=== PATIENT | female | born 1940 | race Caucasian/White ===

== ENCOUNTER 2017-07-26 12:00 | Outpatient (RCR) | payer OTHER, MEDICARE, SELFPAY ==
--- NOTE | 2017-07-01 14:53 | HP.PTEVAL_ITS ---
Patient's Visit Information ANAYA WILSON is a 77 year old F referred to Physical Therapy by Ino Purdy with a diagnosis of Right TKR. Date of Evaluation: 07/01/17 Physical Therapist: Alma Nation - Visit Plan Frequency: 2-3x /Week Duration: 3 Weeks Plan: Focus on ROM and functional mobility - Subjective Subjective: Right Total Knee Replacement June 03, [address] Purdy. Stayed in the hospital a few days- home to a single story home with help as needed. 2 stairs to get in/out of the house- no HR but no issues. Has had home health that stopped last week- does have a home exercise program. Fully I before sugery but had pain. Come here to work out- 5x a week for water classes and land exercises. Is still taking the pain medication- as needed- before streching at home takes the medication. worst: 10/11 Agg: stretching Eases: ice and elevation Best: 03/13. Pain is in the knee itself without radiating. Describes as it hurts. No N/T in the toes. Sleep: not disturbed-in bed- no pillow. Goes back to Dr. Whittaker on - no x-rays. Does use the cane going up/down the stairs but is mostly using the walker. Is not currently driving. PMHx: HTN, bilateral carpal tunnel Meds: lysinopril, prothezene, hydrocodone. - Objective Posture: FH, RS, Increased kyphosis. Gait: uses fww into clinic but does not need to use it- walked out without it. decreased heel/toe pattern. Stairs: asc /desc 8 non recip with 1 HR. HR/TR: wnl. SLS: 10 sec without LOB. Palpation : not tender. Observation: healing well- no s/s of infection. ROM:10-80 degrees. Strength: ankle: 5/5, Knee: 4+/5 within available range, Hip: 4/5 throughout - Goals Goal 1:: Patient will be I with HEP and progression Goal Time Frame: 4-6 Weeks Goal 2:: Patient will demo 0-115 degrees of ROM Goal Time Frame: 4-6 Weeks Goal 3:: Patient will ambulate >300 feet with a normalized gait pattern Goal Time Frame: 4-6 Weeks Goal 4:: Patient will asc/desc 8 stairs recip with 1 HR and good technique Goal Time Frame: 4-6 Weeks - Rehabilitation Potential Physical Therapy Diagnosis: Patient presents with hypomobility- she has decreased ROM, strength and muscular endurance leading to abnormal gait and decreased ability to perform ADL's. Rehabilitation Potential: Fair - Anticipated Interventions Patient/Client Instruction: Educate patient on: Benefits of Fitness Program For the Purpose of:: To improve ability to perform ADL's Therapeutic Exercise to Include: Strength training, Endurance training, Balance training, Coordination, Agility training, Body mechanics, Postural training, Flexibilty training, Gait and locomotor training, Passive ROM, Active ROM For the Purpose of:: To improve muscle performance and motor function TENS: Yes Cryotherapy (ice pack, ice massage): Yes Thermo therapy (hot pack): Yes Ultrasound (thermal/non thermal): No Vasopneumatic device: Yes For the Purpose of:: To decrease pain Thank you for the opportunity to evaluate your patient. For Medicare and Medicare HMO plans, please review the plan of care and approve it. It will need to be FAXED BACK to us at [phone] for Medicare purposes. Please let me know if there are questions or concerns regarding this plan of care. Physician Signature: Date:
--- NOTE | 2017-07-26 12:24 | HP.PTREVAL_ITS ---
Ino Purdy, It has been my pleasure to treat ANAYA WILSON over the last 10 visits for Right TKR. Please see the progress note below for an update on the physical therapy plan of care! Subjective: Patient reports that she can't sleep very well. Still painful with stretching. She is back to some of her normal activities. Feels that she back to 85 % of her normal activities. Is very nervous to return to all of her activities. Objective/Function: Posture: good throughout tx. Gait: no AD- slightly antalgic with decreased stance on right LE-poor heel strike/toe off pattern Stairs: asc/desc 8 recip with 1 HR. HR/TR: wnl. SLS: 10 sec without LOB. Palpation: not tender. Observation: healing well- no s/s of infection. ROM:0- 100 degrees. Strength: ankle: 5/5, Knee: 4+/5 within available range, Hip: 4+/ 5 throughout Plan Plan: Hold will attempt HEP for 2 weeks Goals Goal 1:: Patient will be I with HEP and progression Goal Time Frame: 4-6 Weeks Goal Progress: Goal Met Goal 2:: Patient will demo 0-115 degrees of ROM Goal Time Frame: 4-6 Weeks Goal Progress: Progressing Goal 3:: Patient will ambulate >300 feet with a normalized gait pattern Goal Time Frame: 4-6 Weeks Goal Progress: Progressing Goal 4:: Patient will asc/desc 8 stairs recip with 1 HR and good technique Goal Time Frame: 4-6 Weeks Goal Progress: Progressing Anticipated Interventions Patient/Client Instruction: Educate patient on: Benefits of Fitness Program For the Purpose of:: To improve ability to perform ADL's Therapeutic Exercise to Include: Strength training, Endurance training, Balance training, Coordination, Agility training, Body mechanics, Postural training, Flexibilty training, Gait and locomotor training, Passive ROM, Active ROM For the Purpose of:: To improve muscle performance and motor function TENS: Yes Cryotherapy (ice pack, ice massage): Yes Thermo therapy (hot pack): Yes Ultrasound (thermal/non thermal): No Vasopneumatic device: Yes For the Purpose of:: To decrease pain Please do not hesitate to contact me at [phone] by phone or Fax: if you have questions or concerns regarding this new plan of care! Sincerely, Alma Nation
--- NOTE | 2017-08-21 10:43 | HP.PT.NRP ---
HP - Discharge Summary (1) - Patient Information ANAYA WILSON was seen in my office for initial evaluation on 07/01/17. The following Plan of Care was established for this patient: Initial Frequency: 2-3x /Week Initial Duration: 3 Weeks - Anticipated Interventions Patient/Client Instruction: Educate patient on: Benefits of Fitness Program For the Purpose of:: To improve ability to perform ADL's Therapeutic Exercise to Include: Strength training, Endurance training, Balance training, Coordination, Agility training, Body mechanics, Postural training, Flexibilty training, Gait and locomotor training, Passive ROM, Active ROM For the Purpose of:: To improve muscle performance and motor function TENS: Yes Cryotherapy (ice pack, ice massage): Yes Thermo therapy (hot pack): Yes Ultrasound (thermal/non thermal): No Vasopneumatic device: Yes For the Purpose of:: To decrease pain This patient was last seen in our office . Pertinent comments regarding their Physical therapy will appear below: Patient has not attended physical therapy in over 30 days and is appropriate to be d/c at this time and return to MD as needed. At this point I will be discontinuing this patient from physical therapy. I would be happy to see this patient again in the future if found appropriate by the physician. Thank you! Alma Nation
== END 2017-07-26 19:00 | disposition home or self-care (01) ==
LOC: PT 12:00
PROVIDERS: Family Provider Student in an Organized Health Care Education/Training Program; PCP Student in an Organized Health Care Education/Training Program; Visit Provider Orthopaedic Surgery
DX: M17.11 Unilateral primary osteoarthritis, right knee (principal)
CPT/HCPCS: 97110; 97161; 97530

== ENCOUNTER → 2017-11-14 12:25 | Outpatient (CLI) | payer OTHER, MEDICARE, SELFPAY ==
[2017-11-14 14:34] LABS: Absolute Lymphocyte Count 1.78 X10^3/ul (0.83-4.51); Absolute Neutrophil Count 3.1 X10^3/uL (2.0-7.7); Basophil# 0.01 X10^3/uL; Basophil% 0.2 % (0-1); Eosinophil# 0.12 X10^3/uL; Eosinophils% 2.2 % (0-5); Hematocrit 39.8 % (37-47); Hemoglobin 12.6 g/dl (12.0-15.0); Lymphocyte # 1.78 X10^3/ul (4.0); Lymphocyte % 32.4 % (19-41); Mean Corp Hgb Conc 31.7 g/gl (32-36); Mean Corpuscular Hgb 29.6 pg (27.0-32.0); Mean Corpuscular Volume 93.6 fL (81-99); Mean Platelet Vol. 11.1 fl (6.2-12.0); Monocyte# 0.49 X10^3/uL; Monocyte% 8.9 % (0-10); Neutrophil # 3.08 X10^3/uL (2.7-7.7); Neutrophil % 55.9 % (47-70); Platelet Count 191 K/mm3 (150-450); RBC Distribution Width CV 13.9 % (11.6-14.6); RBC Distribution Width SD 47.8 fl (35.1-43.9); Red Blood Count 4.25 M/mm3 (4.2-5.4); White Blood Count 5.5 K/mm3 (4.4-11.0)
[2017-11-14 14:38] LABS: POSITIVE COUNT NO; POSITIVE DIFFERENTIAL NO; POSITIVE MORPHOLOGY NO
[2017-11-14 14:43] LABS: ALB/GLOB Ratio 1.1 RATIO (0.9-2.4); AST(SGOT) 33 U/L (15-37); Alanine Aminotransfer ALT/SGPT 35 U/L (13-56); Albumin, Serum 3.5 g/dL (3.2-5.0); Alkaline Phosphatase 86 U/L (45-117); Anion Gap 7 (5-15); BUN 23 mg/dL (7-18); BUN/Creat Ratio 35.2 RATIO (10-20); Calcium,Total 8.8 mg/dL (8.5-10.1); Chloride 104 mmol/L (98-107); Creatinine, Serum 0.65 mg/dL (0.55-1.02); EST Glomerular Filtration Rate 93 mL/min (>60); Est Glom Filt Rate - Afr Amer 113 mL/min (>60); Globulin 3.2 g/dL (2.2-4.2); Glucose 79 mg/dL (74-106); Potassium 4.6 mmol/L (3.5-5.1); Protein, Total 6.7 g/dL (6.4-8.2); Sodium Level 141 mmol/L (136-145)
== END ==
PROVIDERS: Family Provider Student in an Organized Health Care Education/Training Program; PCP Student in an Organized Health Care Education/Training Program; Visit Provider Internal Medicine Rheumatology
DX: L40.59 Other psoriatic arthropathy (principal); Z79.899 Other long term (current) drug therapy; L40.8 Other psoriasis; H20.012 Primary iridocyclitis, left eye; F41.9 Anxiety disorder, unspecified
CPT/HCPCS: 36415; 80053; 85025

== ENCOUNTER → 2018-01-30 15:27 | Outpatient (CLI) | payer OTHER, MEDICARE, SELFPAY ==
[2016-09-07 17:39] VITALS: BMI 21.5
[2018-01-30 17:36] LABS: Absolute Lymphocyte Count 1.97 X10^3/ul (0.83-4.51); Absolute Neutrophil Count 3.1 X10^3/uL (2.0-7.7); Basophil# 0.02 X10^3/uL; Basophil% 0.3 % (0-1); Eosinophil# 0.13 X10^3/uL; Eosinophils% 2.2 % (0-5); Hematocrit 39.9 % (37-47); Lymphocyte # 1.97 X10^3/ul (4.0); Lymphocyte % 33.3 % (19-41); Mean Corp Hgb Conc 32.6 g/gl (32-36); Monocyte# 0.72 X10^3/uL; Monocyte% 12.2 % (0-10); Neutrophil # 3.06 X10^3/uL (2.7-7.7); Neutrophil % 51.7 % (47-70); Platelet Count 226 K/mm3 (150-450); RBC Distribution Width CV 14.3 % (11.6-14.6); RBC Distribution Width SD 47.6 fl (35.1-43.9); White Blood Count 5.9 K/mm3 (4.4-11.0)
[2018-01-30 17:39] LABS: POSITIVE COUNT NO; POSITIVE DIFFERENTIAL NO; POSITIVE MORPHOLOGY NO
[2018-01-30 17:49] LABS: ALB/GLOB Ratio 1.1 RATIO (0.9-2.4); AST(SGOT) 25 U/L (15-37); Alanine Aminotransfer ALT/SGPT 31 U/L (13-56); Albumin, Serum 3.5 g/dL (3.2-5.0); Alkaline Phosphatase 103 U/L (45-117); Anion Gap 2 (5-15); BUN 12 mg/dL (7-18); BUN/Creat Ratio 22.3 RATIO (10-20); Calcium,Total 9.3 mg/dL (8.5-10.1); Chloride 103 mmol/L (98-107); Creatinine, Serum 0.54 mg/dL (0.55-1.02); EST Glomerular Filtration Rate 117 mL/min (>60); Est Glom Filt Rate - Afr Amer 141 mL/min (>60); Globulin 3.3 g/dL (2.2-4.2); Glucose 85 mg/dL (74-106); Potassium 4.3 mmol/L (3.5-5.1); Protein, Total 6.8 g/dL (6.4-8.2); Sodium Level 138 mmol/L (136-145)
== END ==
PROVIDERS: Family Provider Student in an Organized Health Care Education/Training Program; PCP Student in an Organized Health Care Education/Training Program; Referring Provider Internal Medicine Rheumatology; Visit Provider Internal Medicine Rheumatology
DX: L40.59 Other psoriatic arthropathy (principal); Z79.899 Other long term (current) drug therapy; L40.8 Other psoriasis; H20.012 Primary iridocyclitis, left eye; F41.9 Anxiety disorder, unspecified
CPT/HCPCS: 36415; 80053; 85025

== ENCOUNTER → 2018-05-06 15:27 | Outpatient (CLI) | payer MEDICARE, SELFPAY ==
[2016-09-07 17:39] VITALS: BMI 21.5
[2018-05-06 17:45] LABS: Absolute Lymphocyte Count 1.84 X10^3/ul (0.83-4.51); Absolute Neutrophil Count 3.5 X10^3/uL (2.0-7.7); Basophil# 0.02 X10^3/uL; Basophil% 0.3 % (0-1); Eosinophil# 0.15 X10^3/uL; Eosinophils% 2.4 % (0-5); Hematocrit 39.4 % (37-47); Hemoglobin 12.4 g/dl (12.0-15.0); Lymphocyte # 1.84 X10^3/ul (4.0); Lymphocyte % 29.3 % (19-41); Mean Corp Hgb Conc 31.5 g/gl (32-36); Mean Corpuscular Hgb 30.7 pg (27.0-32.0); Mean Corpuscular Volume 97.5 fL (81-99); Mean Platelet Vol. 11.9 fl (6.2-12.0); Monocyte# 0.74 X10^3/uL; Monocyte% 11.8 % (0-10); Neutrophil % 55.7 % (47-70); Platelet Count 187 K/mm3 (150-450); RBC Distribution Width CV 13.9 % (11.6-14.6); RBC Distribution Width SD 47.6 fl (35.1-43.9); Red Blood Count 4.04 M/mm3 (4.2-5.4); White Blood Count 6.3 K/mm3 (4.4-11.0)
[2018-05-06 17:47] LABS: POSITIVE COUNT NO; POSITIVE DIFFERENTIAL NO; POSITIVE MORPHOLOGY NO
[2018-05-06 18:26] LABS: ALB/GLOB Ratio 1.2 RATIO (0.9-2.4); AST(SGOT) 32 U/L (15-37); Alanine Aminotransfer ALT/SGPT 41 U/L (13-56); Albumin, Serum 3.6 g/dL (3.2-5.0); Alkaline Phosphatase 96 U/L (45-117); Anion Gap 7 (5-15); BUN 14 mg/dL (7-18); Calcium,Total 8.9 mg/dL (8.5-10.1); Chloride 98 mmol/L (98-107); Creatinine, Serum 0.64 mg/dL (0.55-1.02); EST Glomerular Filtration Rate 96 mL/min (>60); Est Glom Filt Rate - Afr Amer 116 mL/min (>60); Globulin 3.1 g/dL (2.2-4.2); Glucose 89 mg/dL (74-106); Potassium 4.5 mmol/L (3.5-5.1); Protein, Total 6.7 g/dL (6.4-8.2); Sodium Level 137 mmol/L (136-145)
== END ==
PROVIDERS: Family Provider Student in an Organized Health Care Education/Training Program; PCP Student in an Organized Health Care Education/Training Program; Referring Provider Internal Medicine Rheumatology; Visit Provider Internal Medicine Rheumatology
DX: L40.59 Other psoriatic arthropathy (principal); L40.8 Other psoriasis; H20.012 Primary iridocyclitis, left eye; F41.9 Anxiety disorder, unspecified; Z79.899 Other long term (current) drug therapy
CPT/HCPCS: 36415; 80053; 85025

== ENCOUNTER → 2018-07-31 | Outpatient (CLI) | payer MEDICARE, SELFPAY ==
[2016-09-07 17:39] VITALS: BMI 21.5
[2018-07-31 14:29] LABS: AST(SGOT) 25 U/L (15-37); Alanine Aminotransfer ALT/SGPT 34 U/L (13-56); Albumin, Serum 3.3 g/dL (3.2-5.0); Alkaline Phosphatase 97 U/L (45-117); Anion Gap 8 (5-15); BUN 27 mg/dL (7-18); BUN/Creat Ratio 42.4 RATIO (10-20); Chloride 105 mmol/L (98-107); Creatinine, Serum 0.64 mg/dL (0.55-1.02); EST Glomerular Filtration Rate 96 mL/min (>60); Est Glom Filt Rate - Afr Amer 116 mL/min (>60); Globulin 3.3 g/dL (2.2-4.2); Glucose 93 mg/dL (74-106); Potassium 4.2 mmol/L (3.5-5.1); Protein, Total 6.6 g/dL (6.4-8.2); Sodium Level 140 mmol/L (136-145)
[2018-07-31 14:39] LABS: Absolute Lymphocyte Count 1.52 X10^3/ul (0.83-4.51); Absolute Neutrophil Count 3.6 X10^3/uL (2.0-7.7); Basophil# 0.01 X10^3/uL; Basophil% 0.2 % (0-1); Eosinophil# 0.12 X10^3/uL; Hematocrit 39.6 % (37-47); Hemoglobin 13.1 g/dl (12.0-15.0); Lymphocyte # 1.52 X10^3/ul (4.0); Lymphocyte % 25.6 % (19-41); Mean Corp Hgb Conc 33.1 g/gl (32-36); Mean Corpuscular Hgb 30.5 pg (27.0-32.0); Mean Corpuscular Volume 92.1 fL (81-99); Monocyte# 0.64 X10^3/uL; Monocyte% 10.8 % (0-10); Neutrophil # 3.63 X10^3/uL (2.7-7.7); Neutrophil % 61.1 % (47-70); Platelet Count 181 K/mm3 (150-450); RBC Distribution Width CV 13.7 % (11.6-14.6); RBC Distribution Width SD 45.1 fl (35.1-43.9); White Blood Count 5.9 K/mm3 (4.4-11.0)
[2018-07-31 14:40] LABS: POSITIVE COUNT NO; POSITIVE DIFFERENTIAL NO; POSITIVE MORPHOLOGY NO
== END | disposition home or self-care (01) ==
LOC: MTLAB 12:58
PROVIDERS: Family Provider Student in an Organized Health Care Education/Training Program; PCP Student in an Organized Health Care Education/Training Program; Referring Provider Internal Medicine Rheumatology; Visit Provider Internal Medicine Rheumatology
DX: L40.59 Other psoriatic arthropathy (principal); Z79.899 Other long term (current) drug therapy; L40.8 Other psoriasis; H20.012 Primary iridocyclitis, left eye; F41.9 Anxiety disorder, unspecified
CPT/HCPCS: 36415; 80053; 85025

== ENCOUNTER → 2018-11-06 09:40 | Outpatient (CLI) | payer MEDICARE, SELFPAY ==
[2018-11-06 12:23] LABS: Absolute Lymphocyte Count 1.83 X10^3/uL (0.83-4.51); Absolute Neutrophil Count 2.7 X10^3/uL (2.0-7.7); Basophil# 0.02 X10^3/uL; Basophil% 0.4 % (0-1); Eosinophil# 0.23 X10^3/uL; Eosinophils% 4.4 % (0-5); Hematocrit 42.8 % (37-47); Hemoglobin 13.5 g/dL (12.0-15.0); Lymphocyte # 1.83 X10^3/ul (4.0); Mean Corp Hgb Conc 31.5 g/dL (32-36); Mean Corpuscular Hgb 30.3 pg (27.0-32.0); Mean Corpuscular Volume 96.2 fL (81-99); Monocyte# 0.47 X10^3/uL; NRBC Flagged by Analyzer 0 % (0-5); Neutrophil # 2.66 X10^3/uL (2.7-7.7); Neutrophil % 50.8 % (47-70); Platelet Count 195 K/mm3 (150-450); RBC Distribution Width CV 13.3 % (11.6-14.6); RBC Distribution Width SD 46.9 fl (35.1-43.9); Red Blood Count 4.45 M/mm3 (4.2-5.4); White Blood Count 5.2 K/mm3 (4.4-11.0)
[2018-11-06 12:41] LABS: AST(SGOT) 29 U/L (15-37); Alanine Aminotransfer ALT/SGPT 33 U/L (13-56); Albumin, Serum 3.5 g/dL (3.2-5.0); Alkaline Phosphatase 94 U/L (45-117); Anion Gap 4 (5-15); BUN 21 mg/dL (7-18); BUN/Creat Ratio 30.5 RATIO (10-20); Calcium,Total 9.2 mg/dL (8.5-10.1); Chloride 105 mmol/L (98-107); Creatinine, Serum 0.69 mg/dL (0.55-1.02); EST Glomerular Filtration Rate 87 mL/min (>60); Est Glom Filt Rate - Afr Amer 106 mL/min (>60); Globulin 3.5 g/dL (2.2-4.2); Glucose 80 mg/dL (74-106); Potassium 4.3 mmol/L (3.5-5.1); Sodium Level 139 mmol/L (136-145)
== END ==
PROVIDERS: Family Provider Student in an Organized Health Care Education/Training Program; PCP Student in an Organized Health Care Education/Training Program; Referring Provider Internal Medicine Rheumatology; Visit Provider Internal Medicine Rheumatology
DX: L40.59 Other psoriatic arthropathy (principal); Z79.899 Other long term (current) drug therapy; L40.8 Other psoriasis; H20.012 Primary iridocyclitis, left eye; F41.9 Anxiety disorder, unspecified
CPT/HCPCS: 36415; 80053; 85025

== ENCOUNTER → 2019-02-06 10:55 | Outpatient (CLI) | payer MEDICARE, SELFPAY ==
[2019-02-06 12:10] LABS: Absolute Lymphocyte Count 1.69 X10^3/uL (0.83-4.51); Absolute Neutrophil Count 3.9 X10^3/uL (2.0-7.7); Basophil# 0.03 X10^3/uL; Basophil% 0.5 % (0-1); Eosinophil# 0.11 X10^3/uL; Eosinophils% 1.7 % (0-5); Hemoglobin 12.2 g/dL (12.0-15.0); Lymphocyte # 1.69 X10^3/ul (4.0); Lymphocyte % 26.5 % (19-41); Mean Corp Hgb Conc 32.1 g/dL (32-36); Mean Corpuscular Hgb 30.7 pg (27.0-32.0); Mean Corpuscular Volume 95.5 fL (81-99); Monocyte% 9.4 % (0-10); NRBC Flagged by Analyzer 0 % (0-5); Neutrophil # 3.92 X10^3/uL (2.7-7.7); Neutrophil % 61.4 % (47-70); Platelet Count 172 K/mm3 (150-450); RBC Distribution Width CV 13.5 % (11.6-14.6); Red Blood Count 3.98 M/mm3 (4.2-5.4); White Blood Count 6.4 K/mm3 (4.4-11.0)
[2019-02-06 12:25] LABS: ALB/GLOB Ratio 1.1 RATIO (0.9-2.4); AST(SGOT) 24 U/L (15-37); Alanine Aminotransfer ALT/SGPT 34 U/L (13-56); Albumin, Serum 3.4 g/dL (3.2-5.0); Alkaline Phosphatase 89 U/L (45-117); Anion Gap 1 (5-15); BUN 19 mg/dL (7-18); BUN/Creat Ratio 27.5 RATIO (10-20); Chloride 107 mmol/L (98-107); Creatinine, Serum 0.69 mg/dL (0.55-1.02); EST Glomerular Filtration Rate 87 mL/min (>60); Est Glom Filt Rate - Afr Amer 106 mL/min (>60); Globulin 3.1 g/dL (2.2-4.2); Glucose 84 mg/dL (74-106); Potassium 4.6 mmol/L (3.5-5.1); Protein, Total 6.5 g/dL (6.4-8.2); Sodium Level 141 mmol/L (136-145)
== END ==
PROVIDERS: Family Provider Student in an Organized Health Care Education/Training Program; PCP Student in an Organized Health Care Education/Training Program; Referring Provider Internal Medicine Rheumatology; Visit Provider Internal Medicine Rheumatology
DX: L40.59 Other psoriatic arthropathy (principal); Z79.899 Other long term (current) drug therapy; L40.8 Other psoriasis; H20.012 Primary iridocyclitis, left eye; F41.9 Anxiety disorder, unspecified
CPT/HCPCS: 36415; 80053; 85025

== ENCOUNTER → 2019-05-04 11:38 | Outpatient (CLI) | payer MEDICARE, SELFPAY ==
[2016-09-07 17:39] VITALS: BMI 21.5
[2019-05-04 15:53] LABS: ALB/GLOB Ratio 1.1 RATIO (0.9-2.4); AST(SGOT) 31 U/L (15-37); Alanine Aminotransfer ALT/SGPT 36 U/L (13-56); Albumin, Serum 3.6 g/dL (3.2-5.0); Alkaline Phosphatase 88 U/L (45-117); Anion Gap 5 (5-15); BUN 21 mg/dL (7-18); BUN/Creat Ratio 34.2 RATIO (10-20); Calcium,Total 9.2 mg/dL (8.5-10.1); Chloride 105 mmol/L (98-107); Creatinine, Serum 0.61 mg/dL (0.55-1.02); EST Glomerular Filtration Rate 100 mL/min (>60); Est Glom Filt Rate - Afr Amer 121 mL/min (>60); Globulin 3.4 g/dL (2.2-4.2); Glucose 81 mg/dL (74-106); Potassium 4.1 mmol/L (3.5-5.1); Sodium Level 139 mmol/L (136-145)
[2019-05-04 16:25] LABS: Absolute Lymphocyte Count 1.56 X10^3/uL (0.83-4.51); Basophil# 0.03 X10^3/uL; Basophil% 0.6 % (0-1); Eosinophil# 0.09 X10^3/uL; Eosinophils% 1.8 % (0-5); Hematocrit 41.6 % (37-47); Hemoglobin 14.2 g/dL (12.0-15.0); Lymphocyte # 1.56 X10^3/ul (4.0); Lymphocyte % 30.8 % (19-41); Mean Corp Hgb Conc 34.1 g/dL (32-36); Mean Corpuscular Hgb 32.1 pg (27.0-32.0); Mean Corpuscular Volume 93.9 fL (81-99); Monocyte# 0.42 X10^3/uL; Monocyte% 8.3 % (0-10); NRBC Flagged by Analyzer 0 % (0-5); Neutrophil # 2.95 X10^3/uL (2.7-7.7); Neutrophil % 58.1 % (47-70); Platelet Count 272 K/mm3 (150-450); RBC Distribution Width CV 13.8 % (11.6-14.6); RBC Distribution Width SD 47.2 fl (35.1-43.9); Red Blood Count 4.43 M/mm3 (4.2-5.4); White Blood Count 5.1 K/mm3 (4.4-11.0)
== END ==
PROVIDERS: PCP Student in an Organized Health Care Education/Training Program; Referring Provider Internal Medicine Rheumatology; Visit Provider Internal Medicine Rheumatology
DX: L40.59 Other psoriatic arthropathy (principal); Z79.899 Other long term (current) drug therapy; L40.8 Other psoriasis; H20.012 Primary iridocyclitis, left eye; F41.9 Anxiety disorder, unspecified
CPT/HCPCS: 36415; 80053; 85025

== ENCOUNTER → 2019-08-18 12:02 | Outpatient (CLI) | payer MEDICARE, SELFPAY ==
[2016-09-07 17:39] VITALS: BMI 21.5
[2019-08-18 15:14] LABS: Absolute Lymphocyte Count 1.88 X10^3/uL (0.83-4.51); Absolute Neutrophil Count 3.4 X10^3/uL (2.0-7.7); Basophil# 0.03 X10^3/uL; Basophil% 0.5 % (0-1); Eosinophils% 1.7 % (0-5); Hemoglobin 12.7 g/dL (12.0-15.0); Lymphocyte # 1.88 X10^3/ul (4.0); Lymphocyte % 31.6 % (19-41); Mean Platelet Vol. 11.6 fl (6.2-12.0); Monocyte# 0.49 X10^3/uL; Monocyte% 8.2 % (0-10); NRBC Flagged by Analyzer 0 % (0-5); Neutrophil # 3.43 X10^3/uL (2.7-7.7); Neutrophil % 57.7 % (47-70); Platelet Count 179 K/mm3 (150-450); RBC Distribution Width CV 14.5 % (11.6-14.6); RBC Distribution Width SD 52.2 fl (35.1-43.9)
[2019-08-18 15:27] LABS: ALB/GLOB Ratio 1.1 RATIO (0.9-2.4); AST(SGOT) 24 U/L (15-37); Alanine Aminotransfer ALT/SGPT 32 U/L (13-56); Albumin, Serum 3.6 g/dL (3.2-5.0); Alkaline Phosphatase 83 U/L (45-117); Anion Gap 5 (5-15); BUN 16 mg/dL (7-18); Calcium,Total 9.2 mg/dL (8.5-10.1); Chloride 107 mmol/L (98-107); Creatinine, Serum 0.64 mg/dL (0.55-1.02); EST Glomerular Filtration Rate 95 mL/min (>60); Est Glom Filt Rate - Afr Amer 115 mL/min (>60); Globulin 3.2 g/dL (2.2-4.2); Glucose 90 mg/dL (74-106); Potassium 4.3 mmol/L (3.5-5.1); Protein, Total 6.8 g/dL (6.4-8.2); Sodium Level 141 mmol/L (136-145)
== END ==
PROVIDERS: PCP Student in an Organized Health Care Education/Training Program; Referring Provider Internal Medicine Rheumatology; Visit Provider Internal Medicine Rheumatology
DX: L40.59 Other psoriatic arthropathy (principal); Z79.899 Other long term (current) drug therapy; L40.8 Other psoriasis; H20.012 Primary iridocyclitis, left eye; F41.9 Anxiety disorder, unspecified
CPT/HCPCS: 36415; 80053; 85025

== ENCOUNTER → 2019-11-16 09:47 | Outpatient (CLI) | payer MEDICARE, SELFPAY ==
[2016-09-07 17:39] VITALS: BMI 21.5
[2019-11-16 12:15] LABS: Absolute Lymphocyte Count 1.42 X10^3/uL (0.83-4.51); Absolute Neutrophil Count 2.7 X10^3/uL (2.0-7.7); Basophil# 0.03 X10^3/uL; Basophil% 0.6 % (0-1); Eosinophil# 0.13 X10^3/uL; Eosinophils% 2.8 % (0-5); Hematocrit 38.6 % (37-47); Hemoglobin 12.2 g/dL (12.0-15.0); Lymphocyte # 1.42 X10^3/ul (4.0); Lymphocyte % 30.3 % (19-41); Mean Corp Hgb Conc 31.6 g/dL (32-36); Mean Corpuscular Hgb 30.7 pg (27.0-32.0); Mean Platelet Vol. 11.2 fl (6.2-12.0); Monocyte# 0.43 X10^3/uL; Monocyte% 9.2 % (0-10); NRBC Flagged by Analyzer 0 % (0-5); Neutrophil # 2.66 X10^3/uL (2.7-7.7); Neutrophil % 56.7 % (47-70); Platelet Count 190 K/mm3 (150-450); RBC Distribution Width CV 13.6 % (11.6-14.6); RBC Distribution Width SD 48.6 fl (35.1-43.9); Red Blood Count 3.98 M/mm3 (4.2-5.4); White Blood Count 4.7 K/mm3 (4.4-11.0)
[2019-11-16 12:43] LABS: ALB/GLOB Ratio 1.1 RATIO (0.9-2.4); AST(SGOT) 31 U/L (15-37); Alanine Aminotransfer ALT/SGPT 35 U/L (13-56); Albumin, Serum 3.4 g/dL (3.2-5.0); Alkaline Phosphatase 91 U/L (45-117); Anion Gap 4 (5-15); BUN 20 mg/dL (7-18); BUN/Creat Ratio 32.3 RATIO (10-20); Calcium,Total 9.2 mg/dL (8.5-10.1); Chloride 106 mmol/L (98-107); Creatinine, Serum 0.62 mg/dL (0.55-1.02); EST Glomerular Filtration Rate 99 mL/min (>60); Est Glom Filt Rate - Afr Amer 119 mL/min (>60); Globulin 3.2 g/dL (2.2-4.2); Glucose 90 mg/dL (74-106); Potassium 4.6 mmol/L (3.5-5.1); Protein, Total 6.6 g/dL (6.4-8.2); Sodium Level 140 mmol/L (136-145)
== END ==
PROVIDERS: PCP Student in an Organized Health Care Education/Training Program; Referring Provider Internal Medicine Rheumatology; Visit Provider Internal Medicine Rheumatology
DX: L40.59 Other psoriatic arthropathy (principal); Z79.899 Other long term (current) drug therapy; L40.8 Other psoriasis; H20.012 Primary iridocyclitis, left eye; F41.9 Anxiety disorder, unspecified
CPT/HCPCS: 36415; 80053; 85025

== ENCOUNTER → 2020-02-12 11:15 | Outpatient (CLI) | payer MEDICARE, SELFPAY ==
[2016-09-07 17:39] VITALS: BMI 21.5
[2020-02-12 15:30] LABS: Absolute Lymphocyte Count 1.59 X10^3/uL (0.83-4.51); Absolute Neutrophil Count 6.2 X10^3/uL (2.0-7.7); Basophil# 0.01 X10^3/uL; Basophil% 0.1 % (0-1); Eosinophil# 0.08 X10^3/uL; Eosinophils% 0.9 % (0-5); Hematocrit 41.1 % (37-47); Hemoglobin 12.8 g/dL (12.0-15.0); Lymphocyte # 1.59 X10^3/ul (4.0); Lymphocyte % 18.6 % (19-41); Mean Corp Hgb Conc 31.1 g/dL (32-36); Mean Corpuscular Hgb 30.6 pg (27.0-32.0); Mean Corpuscular Volume 98.3 fL (81-99); Mean Platelet Vol. 11.5 fl (6.2-12.0); Monocyte# 0.63 X10^3/uL; Monocyte% 7.4 % (0-10); NRBC Flagged by Analyzer 0 % (0-5); Neutrophil # 6.19 X10^3/uL (2.7-7.7); Neutrophil % 72.5 % (47-70); Platelet Count 226 K/mm3 (150-450); RBC Distribution Width SD 50.2 fl (35.1-43.9); Red Blood Count 4.18 M/mm3 (4.2-5.4); White Blood Count 8.5 K/mm3 (4.4-11.0)
[2020-02-12 15:41] LABS: ALB/GLOB Ratio 1.1 RATIO (0.9-2.4); AST(SGOT) 21 U/L (15-37); Alanine Aminotransfer ALT/SGPT 26 U/L (13-56); Albumin, Serum 3.5 g/dL (3.2-5.0); Alkaline Phosphatase 118 U/L (45-117); Anion Gap 4 (5-15); BUN 17 mg/dL (7-18); BUN/Creat Ratio 29.2 RATIO (10-20); Calcium,Total 9.3 mg/dL (8.5-10.1); Chloride 103 mmol/L (98-107); Creatinine, Serum 0.58 mg/dL (0.55-1.02); EST Glomerular Filtration Rate 106 mL/min (>60); Est Glom Filt Rate - Afr Amer 128 mL/min (>60); Globulin 3.3 g/dL (2.2-4.2); Glucose 82 mg/dL (74-106); Protein, Total 6.8 g/dL (6.4-8.2); Sodium Level 139 mmol/L (136-145)
== END ==
PROVIDERS: PCP Student in an Organized Health Care Education/Training Program; Referring Provider Internal Medicine Rheumatology; Visit Provider Internal Medicine Rheumatology
DX: L40.59 Other psoriatic arthropathy (principal); Z79.899 Other long term (current) drug therapy; L40.8 Other psoriasis; H20.012 Primary iridocyclitis, left eye; F41.9 Anxiety disorder, unspecified
CPT/HCPCS: 36415; 80053; 85025

== ENCOUNTER → 2020-05-23 | Outpatient (CLI) | payer MEDICARE, SELFPAY ==
[2016-09-07 17:39] VITALS: BMI 21.5
== END | disposition home or self-care (01) ==
LOC: LABSPEC 15:37
PROVIDERS: PCP Student in an Organized Health Care Education/Training Program; Referring Provider Otolaryngology Otolaryngology/Facial Plastic Surgery; Visit Provider Otolaryngology Otolaryngology/Facial Plastic Surgery
DX: J34.0 Abscess, furuncle and carbuncle of nose (principal)
CPT/HCPCS: 87070; 87205

== ENCOUNTER → 2020-06-23 10:49 | Outpatient (CLI) | payer MEDICARE, SELFPAY ==
[2016-09-07 17:39] VITALS: BMI 21.5
[2020-06-23 12:49] LABS: Absolute Lymphocyte Count 1.88 X10^3/uL (0.83-4.51); Absolute Neutrophil Count 3.5 X10^3/uL (2.0-7.7); Basophil# 0.03 X10^3/uL; Basophil% 0.5 % (0-1); Eosinophil# 0.09 X10^3/uL; Eosinophils% 1.5 % (0-5); Hematocrit 40.5 % (37-47); Hemoglobin 12.6 g/dL (12.0-15.0); Lymphocyte # 1.88 X10^3/ul (0.83-4.51); Lymphocyte % 31.3 % (19-41); Mean Corp Hgb Conc 31.1 g/dL (32-36); Mean Corpuscular Hgb 30.1 pg (27.0-32.0); Mean Corpuscular Volume 96.7 fL (81-99); Mean Platelet Vol. 10.8 fl (6.2-12.0); Monocyte# 0.48 X10^3/uL; NRBC Flagged by Analyzer 0 % (0-5); Neutrophil % 58.4 % (47-70); Platelet Count 234 K/mm3 (150-450); RBC Distribution Width CV 14.4 % (11.6-14.6); Red Blood Count 4.19 M/mm3 (4.2-5.4)
[2020-06-23 13:03] LABS: ALB/GLOB Ratio 1.1 RATIO (0.9-2.4); AST(SGOT) 21 U/L (15-37); Alanine Aminotransfer ALT/SGPT 33 U/L (13-56); Albumin, Serum 3.7 g/dL (3.2-5.0); Alkaline Phosphatase 118 U/L (45-117); Anion Gap 2 (5-15); BUN 19 mg/dL (7-18); BUN/Creat Ratio 32.2 RATIO (10-20); Calcium,Total 9.1 mg/dL (8.5-10.1); Chloride 105 mmol/L (98-107); Creatinine, Serum 0.59 mg/dL (0.55-1.02); EST Glomerular Filtration Rate 104 mL/min (>60); Est Glom Filt Rate - Afr Amer 126 mL/min (>60); Globulin 3.3 g/dL (2.2-4.2); Glucose 95 mg/dL (74-106); Potassium 4.6 mmol/L (3.5-5.1); Sodium Level 138 mmol/L (136-145)
== END ==
PROVIDERS: PCP Student in an Organized Health Care Education/Training Program; Referring Provider Internal Medicine Rheumatology; Visit Provider Internal Medicine Rheumatology
DX: L40.59 Other psoriatic arthropathy (principal); Z79.899 Other long term (current) drug therapy; L40.8 Other psoriasis; H20.012 Primary iridocyclitis, left eye; F41.9 Anxiety disorder, unspecified
CPT/HCPCS: 36415; 80053; 85025

== ENCOUNTER → 2020-09-23 13:46 | Outpatient (CLI) | payer MEDICARE, SELFPAY ==
[2016-09-07 17:39] VITALS: BMI 21.5
[2020-09-23 14:55] LABS: Absolute Lymphocyte Count 1.28 X10^3/uL (0.83-4.51); Absolute Neutrophil Count 3.4 X10^3/uL (2.0-7.7); Basophil# 0.02 X10^3/uL; Basophil% 0.4 % (0-1); Eosinophils% 1.9 % (0-5); Hematocrit 39.7 % (37-47); Hemoglobin 12.8 g/dL (12.0-15.0); Lymphocyte # 1.28 X10^3/ul (0.83-4.51); Lymphocyte % 24.3 % (19-41); Mean Corp Hgb Conc 32.2 g/dL (32-36); Mean Corpuscular Hgb 29.9 pg (27.0-32.0); Mean Corpuscular Volume 92.8 fL (81-99); Mean Platelet Vol. 11.1 fl (6.2-12.0); Monocyte# 0.42 X10^3/uL; NRBC Flagged by Analyzer 0 % (0-5); Neutrophil # 3.43 X10^3/uL (2.7-7.7); Platelet Count 199 K/mm3 (150-450); RBC Distribution Width CV 13.3 % (11.6-14.6); RBC Distribution Width SD 45.2 fl (35.1-43.9); Red Blood Count 4.28 M/mm3 (4.2-5.4); White Blood Count 5.3 K/mm3 (4.4-11.0)
[2020-09-23 15:19] LABS: ALB/GLOB Ratio 1.1 RATIO (0.9-2.4); AST(SGOT) 37 U/L (15-37); Alanine Aminotransfer ALT/SGPT 43 U/L (13-56); Albumin, Serum 3.6 g/dL (3.2-5.0); Alkaline Phosphatase 107 U/L (45-117); Anion Gap 6 (5-15); BUN 13 mg/dL (7-18); BUN/Creat Ratio 20.1 RATIO (10-20); Calcium,Total 8.9 mg/dL (8.5-10.1); Chloride 105 mmol/L (98-107); Creatinine, Serum 0.65 mg/dL (0.55-1.02); EST Glomerular Filtration Rate 94 mL/min (>60); Est Glom Filt Rate - Afr Amer 113 mL/min (>60); Globulin 3.2 g/dL (2.2-4.2); Glucose 88 mg/dL (74-106); Potassium 3.9 mmol/L (3.5-5.1); Protein, Total 6.8 g/dL (6.4-8.2); Sodium Level 139 mmol/L (136-145)
== END ==
PROVIDERS: PCP Student in an Organized Health Care Education/Training Program; Referring Provider Internal Medicine Rheumatology; Visit Provider Internal Medicine Rheumatology
DX: L40.59 Other psoriatic arthropathy (principal); Z79.899 Other long term (current) drug therapy; L40.8 Other psoriasis; H20.012 Primary iridocyclitis, left eye; F41.9 Anxiety disorder, unspecified
CPT/HCPCS: 36415; 80053; 85025

== ENCOUNTER 2021-03-24 15:11 | Outpatient (CLI) | payer MEDICARE, SELFPAY | END 2021-03-24 23:59 | disposition short-term general hospital (02) | LOC: LABSPEC 15:13 | PROVIDERS: PCP Student in an Organized Health Care Education/Training Program; Visit Provider Otolaryngology | DX: R07.0 Pain in throat (principal) | CPT/HCPCS: 87070 ==

== ENCOUNTER 2021-03-25 12:00 | Outpatient (CLI) | payer MEDICARE, SELFPAY | END 2021-03-25 23:59 | disposition short-term general hospital (02) | LOC: LABSPEC 12:01 | PROVIDERS: PCP Student in an Organized Health Care Education/Training Program; Visit Provider Otolaryngology Otolaryngology/Facial Plastic Surgery | DX: U07.1 COVID-19 (principal) | CPT/HCPCS: 87070; 87635; U0003; U0005 ==

== ENCOUNTER 2021-06-19 10:30 | Outpatient (RCR) | payer MEDICARE, SELFPAY ==
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
--- NOTE | 2021-06-19 11:01 | HP.PTDCSUM ---
It has been my pleasure to treat ANAYA WILSON referred by Dr. Edneilson Nicholson DO, with the diagnosis of Neck pain for a total of 10 visit(s). Discharge Date: 06/19/21 Please see the following information for a summary of their discharge status. Subjective: Pt reports that her neck pain is a lot better. She can move her neck without pain. neck pain Pain Intensity (Out of 10): 0 % Improvement: 98 Objective/Function: C-spine AROM: flexion 100% ( increase pain), Ext 75%, SB L 75%, SB R75%, Rot R 85%, and Rot L 85%). Posture: sits with upright posture during treatment sessions. Palpation: Goal 1:: I HEP Goal Progress: Goal Met Goal 2:: Increase C-spine AROM painfree (at time of eval: C-spine AROM: flexion 50% ( increase pain), Ext 50%, SB L 50%, SB R75%, Rot R 75%, and Rot L 75%) Goal Progress: Goal Met Goal 3:: Sit with upright posture during treatment sessions Goal Progress: Goal Met Plan: DC PT to HEP Discharge Comments: DC PT to HEP If there are questions or concerns regarding this patient's physical therapy, please feel free to call me at [phone]. Thank you for the referral of this patient. Sincerely, Claire Guan, MPT Balance/Gait/Functional tests - Balance/Special Test Scores Oswestry Neck Score: 2
== END 2021-06-19 19:00 | disposition home or self-care (01) ==
LOC: PT 10:30
PROVIDERS: PCP Student in an Organized Health Care Education/Training Program; Referring Provider Student in an Organized Health Care Education/Training Program; Visit Provider Student in an Organized Health Care Education/Training Program
DX: M54.2 Cervicalgia (principal)
CPT/HCPCS: 97110; 97140; 97161; 97530

== ENCOUNTER → 2021-08-01 | Outpatient (CLI) | payer MEDICARE, SELFPAY ==
[2021-08-01 10:25] LABS: Absolute Lymphocyte Count 1.74 X10^3/uL (0.83-4.51); Absolute Neutrophil Count 2.9 X10^3/uL (2.0-7.7); Basophil# 0.03 X10^3/uL; Basophil% 0.6 % (0-1); Eosinophil# 0.13 X10^3/uL; Eosinophils% 2.4 % (0-5); Hemoglobin 12.7 g/dL (12.0-15.0); Lymphocyte # 1.74 X10^3/ul (0.83-4.51); Lymphocyte % 32.5 % (19-41); Mean Corp Hgb Conc 31.8 g/dL (32-36); Mean Corpuscular Hgb 31.1 pg (27.0-32.0); Mean Platelet Vol. 10.7 fl (6.2-12.0); Monocyte% 9.3 % (0-10); NRBC Flagged by Analyzer 0 % (0-5); Neutrophil # 2.94 X10^3/uL (2.7-7.7); Neutrophil % 54.8 % (47-70); Platelet Count 218 K/mm3 (150-450); RBC Distribution Width CV 14.3 % (11.6-14.6); RBC Distribution Width SD 50.7 fl (35.1-43.9); Red Blood Count 4.08 M/mm3 (4.2-5.4); White Blood Count 5.4 K/mm3 (4.4-11.0)
[2021-08-01 11:03] LABS: AST(SGOT) 26 U/L (15-37); Alanine Aminotransfer ALT/SGPT 31 U/L (13-56); Albumin, Serum 3.2 g/dL (3.2-5.0); Alkaline Phosphatase 119 U/L (45-117); Anion Gap 3 (5-15); BUN 17 mg/dL (7-18); BUN/Creat Ratio 29.7 RATIO (10-20); Calcium,Total 8.9 mg/dL (8.5-10.1); Chloride 109 mmol/L (98-107); Creatinine, Serum 0.57 mg/dL (0.55-1.02); EST Glomerular Filtration Rate 107 mL/min (>60); Est Glom Filt Rate - Afr Amer 130 mL/min (>60); Globulin 3.3 g/dL (2.2-4.2); Glucose 91 mg/dL (74-106); Potassium 4.3 mmol/L (3.5-5.1); Protein, Total 6.5 g/dL (6.4-8.2); Sodium Level 142 mmol/L (136-145)
== END | disposition home or self-care (01) ==
LOC: MTLAB 08:59
PROVIDERS: PCP Student in an Organized Health Care Education/Training Program; Referring Provider Internal Medicine Rheumatology; Visit Provider Internal Medicine Rheumatology
DX: L40.59 Other psoriatic arthropathy (principal); Z79.899 Other long term (current) drug therapy; L40.8 Other psoriasis; H20.012 Primary iridocyclitis, left eye; F41.9 Anxiety disorder, unspecified
CPT/HCPCS: 36415; 80053; 85025

== ENCOUNTER → 2021-10-30 | Outpatient (CLI) | payer MEDICARE, SELFPAY ==
[2021-10-30 15:17] LABS: AST(SGOT) 25 U/L (15-37); Alanine Aminotransfer ALT/SGPT 28 U/L (13-56); Albumin, Serum 3.1 g/dL (3.2-5.0); Alkaline Phosphatase 94 U/L (45-117); Anion Gap 5 (5-15); BUN 11 mg/dL (7-18); BUN/Creat Ratio 17.7 RATIO (10-20); Calcium,Total 8.7 mg/dL (8.5-10.1); Chloride 103 mmol/L (98-107); Creatinine, Serum 0.62 mg/dL (0.55-1.02); EST Glomerular Filtration Rate 98 mL/min (>60); Est Glom Filt Rate - Afr Amer 118 mL/min (>60); Globulin 3.2 g/dL (2.2-4.2); Glucose 78 mg/dL (74-106); Potassium 4.4 mmol/L (3.5-5.1); Protein, Total 6.3 g/dL (6.4-8.2); Sodium Level 141 mmol/L (136-145)
[2021-10-30 18:03] LABS: Absolute Lymphocyte Count 1.44 X10^3/uL (0.83-4.51); Absolute Neutrophil Count 2.6 X10^3/uL (2.0-7.7); Basophil# 0.02 X10^3/uL; Basophil% 0.4 % (0-1); Eosinophils% 2.1 % (0-5); Hematocrit 38.8 % (37-47); Hemoglobin 12.4 g/dL (12.0-15.0); Lymphocyte # 1.44 X10^3/ul (0.83-4.51); Lymphocyte % 30.8 % (19-41); Mean Corpuscular Hgb 30.5 pg (27.0-32.0); Mean Corpuscular Volume 95.3 fL (81-99); Mean Platelet Vol. 11.6 fl (6.2-12.0); Monocyte# 0.51 X10^3/uL; Monocyte% 10.9 % (0-10); NRBC Flagged by Analyzer 0 % (0-5); Neutrophil # 2.58 X10^3/uL (2.7-7.7); Neutrophil % 55.4 % (47-70); Platelet Count 191 K/mm3 (150-450); RBC Distribution Width CV 13.4 % (11.6-14.6); RBC Distribution Width SD 46.9 fl (35.1-43.9); Red Blood Count 4.07 M/mm3 (4.2-5.4); White Blood Count 4.7 K/mm3 (4.4-11.0)
== END | disposition home or self-care (01) ==
LOC: LAB.FUTURE 12:00 → MTLAB 12:01
PROVIDERS: PCP Student in an Organized Health Care Education/Training Program; Referring Provider Internal Medicine Rheumatology; Visit Provider Internal Medicine Rheumatology
DX: L40.59 Other psoriatic arthropathy (principal); Z79.899 Other long term (current) drug therapy; L40.8 Other psoriasis; M17.0 Bilateral primary osteoarthritis of knee; H20.012 Primary iridocyclitis, left eye; F41.9 Anxiety disorder, unspecified
CPT/HCPCS: 36415; 80053; 85025

== ENCOUNTER → 2022-01-01 | Outpatient (CLI) | payer MEDICARE, SELFPAY ==
[2022-01-01 10:13] LABS: Absolute Lymphocyte Count 1.95 X10^3/uL (0.83-4.51); Absolute Neutrophil Count 2.8 X10^3/uL (2.0-7.7); Basophil# 0.04 X10^3/uL; Basophil% 0.7 % (0-1); Eosinophils% 6.7 % (0-5); Hematocrit 39.3 % (37-47); Hemoglobin 12.9 g/dL (12.0-15.0); Lymphocyte # 1.95 X10^3/ul (0.83-4.51); Lymphocyte % 32.7 % (19-41); Mean Corp Hgb Conc 32.8 g/dL (32-36); Mean Corpuscular Hgb 31.7 pg (27.0-32.0); Mean Corpuscular Volume 96.6 fL (81-99); Mean Platelet Vol. 10.7 fl (6.2-12.0); Monocyte# 0.78 X10^3/uL; Monocyte% 13.1 % (0-10); NRBC Flagged by Analyzer 0 % (0-5); Neutrophil # 2.76 X10^3/uL (2.7-7.7); Neutrophil % 46.1 % (47-70); Platelet Count 265 K/mm3 (150-450); RBC Distribution Width CV 14.6 % (11.6-14.6); RBC Distribution Width SD 50.4 fl (35.1-43.9); Red Blood Count 4.07 M/mm3 (4.2-5.4)
[2022-01-01 10:39] LABS: AST(SGOT) 22 U/L (15-37); Alanine Aminotransfer ALT/SGPT 25 U/L (13-56); Albumin, Serum 3.3 g/dL (3.2-5.0); Alkaline Phosphatase 122 U/L (45-117); Anion Gap 4 (5-15); BUN 15 mg/dL (7-18); BUN/Creat Ratio 23.7 RATIO (10-20); Calcium,Total 9.3 mg/dL (8.5-10.1); Chloride 105 mmol/L (98-107); Creatinine, Serum 0.63 mg/dL (0.55-1.02); EST Glomerular Filtration Rate 96 mL/min (>60); Est Glom Filt Rate - Afr Amer 116 mL/min (>60); Globulin 3.3 g/dL (2.2-4.2); Glucose 99 mg/dL (74-106); Potassium 4.4 mmol/L (3.5-5.1); Protein, Total 6.6 g/dL (6.4-8.2); Sodium Level 140 mmol/L (136-145)
== END | disposition home or self-care (01) ==
LOC: MTLAB 09:03
PROVIDERS: PCP Student in an Organized Health Care Education/Training Program; Referring Provider Internal Medicine Rheumatology; Visit Provider Internal Medicine Rheumatology
DX: L40.59 Other psoriatic arthropathy (principal); L40.8 Other psoriasis; M17.0 Bilateral primary osteoarthritis of knee; H20.012 Primary iridocyclitis, left eye; F41.9 Anxiety disorder, unspecified; Z79.899 Other long term (current) drug therapy
CPT/HCPCS: 36415; 80053; 85025

== ENCOUNTER → 2022-03-26 | Outpatient (CLI) | payer MEDICARE, SELFPAY ==
[2022-03-26 12:22] LABS: Absolute Lymphocyte Count 1.54 X10^3/uL (0.83-4.51); Absolute Neutrophil Count 3.4 X10^3/uL (2.0-7.7); Basophil# 0.02 X10^3/uL; Basophil% 0.3 % (0-1); Eosinophil# 0.12 X10^3/uL; Eosinophils% 2.1 % (0-5); Hematocrit 40.3 % (37-47); Hemoglobin 12.9 g/dL (12.0-15.0); Lymphocyte # 1.54 X10^3/ul (0.83-4.51); Lymphocyte % 26.9 % (19-41); Mean Corpuscular Hgb 30.9 pg (27.0-32.0); Mean Corpuscular Volume 96.6 fL (81-99); Monocyte# 0.64 X10^3/uL; Monocyte% 11.2 % (0-10); NRBC Flagged by Analyzer 0.3 % (0-5); Neutrophil # 3.38 X10^3/uL (2.7-7.7); Neutrophil % 59.2 % (47-70); Platelet Count 197 K/mm3 (150-450); RBC Distribution Width CV 13.2 % (11.6-14.6); RBC Distribution Width SD 46.2 fl (35.1-43.9); Red Blood Count 4.17 M/mm3 (4.2-5.4); White Blood Count 5.7 K/mm3 (4.4-11.0)
[2022-03-26 12:37] LABS: AST(SGOT) 23 U/L (15-37); Alanine Aminotransfer ALT/SGPT 27 U/L (13-56); Albumin, Serum 3.3 g/dL (3.2-5.0); Alkaline Phosphatase 111 U/L (45-117); Anion Gap 4 (5-15); BUN 13 mg/dL (7-18); BUN/Creat Ratio 19.7 RATIO (10-20); Calcium,Total 9.2 mg/dL (8.5-10.1); Chloride 101 mmol/L (98-107); Creatinine, Serum 0.66 mg/dL (0.55-1.02); EST Glomerular Filtration Rate 91 mL/min (>60); Est Glom Filt Rate - Afr Amer 110 mL/min (>60); Globulin 3.3 g/dL (2.2-4.2); Glucose 93 mg/dL (74-106); Potassium 4.6 mmol/L (3.5-5.1); Protein, Total 6.6 g/dL (6.4-8.2); Sodium Level 136 mmol/L (136-145)
== END | disposition home or self-care (01) ==
PROVIDERS: PCP Student in an Organized Health Care Education/Training Program; Referring Provider Internal Medicine Rheumatology; Visit Provider Internal Medicine Rheumatology
DX: Z79.899 Other long term (current) drug therapy (principal); L40.59 Other psoriatic arthropathy
CPT/HCPCS: 36415; 80053; 85025

== ENCOUNTER → 2022-06-25 | Outpatient (CLI) | payer MEDICARE, SELFPAY ==
[2022-06-25 12:16] LABS: Absolute Lymphocyte Count 1.95 X10^3/uL (0.83-4.51); Absolute Neutrophil Count 2.5 X10^3/uL (2.0-7.7); Basophil# 0.04 X10^3/uL; Basophil% 0.8 % (0-1); Eosinophil# 0.21 X10^3/uL; Hematocrit 39.5 % (37-47); Hemoglobin 12.4 g/dL (12.0-15.0); Lymphocyte # 1.95 X10^3/ul (0.83-4.51); Lymphocyte % 37.1 % (19-41); Mean Corp Hgb Conc 31.4 g/dL (32-36); Mean Corpuscular Hgb 30.8 pg (27.0-32.0); Mean Platelet Vol. 11.1 fl (6.2-12.0); Monocyte# 0.54 X10^3/uL; Monocyte% 10.3 % (0-10); NRBC Flagged by Analyzer 0 % (0-5); Neutrophil # 2.48 X10^3/uL (2.7-7.7); Neutrophil % 47.2 % (47-70); Platelet Count 226 K/mm3 (150-450); RBC Distribution Width CV 14.4 % (11.6-14.6); RBC Distribution Width SD 51.8 fl (35.1-43.9); Red Blood Count 4.03 M/mm3 (4.2-5.4); White Blood Count 5.3 K/mm3 (4.4-11.0)
[2022-06-25 12:32] LABS: AST(SGOT) 24 U/L (15-37); Alanine Aminotransfer ALT/SGPT 27 U/L (13-56); Albumin, Serum 3.2 g/dL (3.2-5.0); Alkaline Phosphatase 107 U/L (45-117); Anion Gap 1 (5-15); BUN 15 mg/dL (7-18); BUN/Creat Ratio 22.9 RATIO (10-20); Calcium,Total 9.4 mg/dL (8.5-10.1); Chloride 109 mmol/L (98-107); Creatinine, Serum 0.66 mg/dL (0.55-1.02); EST Glomerular Filtration Rate 92 mL/min (>60); Est Glom Filt Rate - Afr Amer 111 mL/min (>60); Globulin 3.1 g/dL (2.2-4.2); Glucose 93 mg/dL (74-106); Potassium 4.6 mmol/L (3.5-5.1); Protein, Total 6.3 g/dL (6.4-8.2); Sodium Level 139 mmol/L (136-145)
== END | disposition home or self-care (01) ==
LOC: MTLAB 10:18
PROVIDERS: PCP Student in an Organized Health Care Education/Training Program; Referring Provider Internal Medicine Rheumatology; Visit Provider Internal Medicine Rheumatology
DX: L40.59 Other psoriatic arthropathy (principal); Z79.899 Other long term (current) drug therapy; L40.8 Other psoriasis; M17.0 Bilateral primary osteoarthritis of knee; H20.012 Primary iridocyclitis, left eye; F41.9 Anxiety disorder, unspecified
CPT/HCPCS: 36415; 80053; 85025

== ENCOUNTER → 2022-09-13 | Outpatient (CLI) | payer MEDICARE, SELFPAY ==
[2022-09-13 12:34] LABS: Absolute Lymphocyte Count 1.44 X10^3/uL (0.83-4.51); Absolute Neutrophil Count 3.3 X10^3/uL (2.0-7.7); Basophil# 0.02 X10^3/uL; Basophil% 0.4 % (0-1); Eosinophil# 0.16 X10^3/uL; Hematocrit 37.5 % (37-47); Lymphocyte # 1.44 X10^3/ul (0.83-4.51); Lymphocyte % 26.8 % (19-41); Mean Corpuscular Hgb 30.8 pg (27.0-32.0); Mean Corpuscular Volume 96.2 fL (81-99); Mean Platelet Vol. 11.3 fl (6.2-12.0); Monocyte# 0.45 X10^3/uL; Monocyte% 8.4 % (0-10); NRBC Flagged by Analyzer 0 % (0-5); Neutrophil % 61.2 % (47-70); Platelet Count 201 K/mm3 (150-450); RBC Distribution Width SD 49.1 fl (35.1-43.9); White Blood Count 5.4 K/mm3 (4.4-11.0)
[2022-09-13 13:00] LABS: ALB/GLOB Ratio 1.1 RATIO (0.9-2.4); AST(SGOT) 28 U/L (15-37); Alanine Aminotransfer ALT/SGPT 28 U/L (13-56); Albumin, Serum 3.3 g/dL (3.2-5.0); Alkaline Phosphatase 95 U/L (45-117); Anion Gap 6 (5-15); BUN 15 mg/dL (7-18); BUN/Creat Ratio 21.9 RATIO (10-20); Calcium,Total 8.7 mg/dL (8.5-10.1); Chloride 108 mmol/L (98-107); Creatinine, Serum 0.68 mg/dL (0.55-1.02); EST Glomerular Filtration Rate 87 mL/min (>60); Est Glom Filt Rate - Afr Amer 106 mL/min (>60); Glucose 90 mg/dL (74-106); Potassium 4.3 mmol/L (3.5-5.1); Protein, Total 6.3 g/dL (6.4-8.2); Sodium Level 139 mmol/L (136-145)
== END | disposition home or self-care (01) ==
LOC: MTLAB 10:15
PROVIDERS: PCP Student in an Organized Health Care Education/Training Program; Visit Provider Internal Medicine Rheumatology
DX: L40.59 Other psoriatic arthropathy (principal); Z79.899 Other long term (current) drug therapy; L40.8 Other psoriasis; M17.0 Bilateral primary osteoarthritis of knee; H20.012 Primary iridocyclitis, left eye; F41.9 Anxiety disorder, unspecified
CPT/HCPCS: 36415; 80053; 85025

== ENCOUNTER → 2022-12-11 | Outpatient (CLI) | payer MEDICARE, SELFPAY ==
[2022-12-11 10:31] LABS: Absolute Lymphocyte Count 1.78 X10^3/uL (0.83-4.51); Absolute Neutrophil Count 3.5 X10^3/uL (2.0-7.7); Basophil# 0.04 X10^3/uL; Basophil% 0.7 % (0-1); Eosinophil# 0.17 X10^3/uL; Eosinophils% 2.8 % (0-5); Hematocrit 39.1 % (37-47); Hemoglobin 12.2 g/dL (12.0-15.0); Lymphocyte # 1.78 X10^3/ul (0.83-4.51); Lymphocyte % 29.5 % (19-41); Mean Corp Hgb Conc 31.2 g/dL (32-36); Mean Corpuscular Hgb 30.2 pg (27.0-32.0); Mean Corpuscular Volume 96.8 fL (81-99); Mean Platelet Vol. 9.8 fl (6.2-12.0); Monocyte# 0.51 X10^3/uL; Monocyte% 8.5 % (0-10); NRBC Flagged by Analyzer 0 % (0-5); Platelet Count 282 K/mm3 (150-450); RBC Distribution Width CV 13.3 % (11.6-14.6); RBC Distribution Width SD 46.9 fl (35.1-43.9); Red Blood Count 4.04 M/mm3 (4.2-5.4)
[2022-12-11 11:19] LABS: ALB/GLOB Ratio 0.9 RATIO (0.9-2.4); AST(SGOT) 25 U/L (15-37); Alanine Aminotransfer ALT/SGPT 29 U/L (13-56); Alkaline Phosphatase 113 U/L (45-117); Anion Gap 2 (5-15); BUN 10 mg/dL (7-18); BUN/Creat Ratio 16.7 RATIO (10-20); Calcium,Total 8.9 mg/dL (8.5-10.1); Chloride 106 mmol/L (98-107); EST Glomerular Filtration Rate 102 mL/min (>60); Est Glom Filt Rate - Afr Amer 123 mL/min (>60); Globulin 3.4 g/dL (2.2-4.2); Glucose 94 mg/dL (74-106); Potassium 4.4 mmol/L (3.5-5.1); Protein, Total 6.4 g/dL (6.4-8.2); Sodium Level 138 mmol/L (136-145)
== END | disposition home or self-care (01) ==
LOC: MTLAB 08:30
PROVIDERS: PCP Student in an Organized Health Care Education/Training Program; Referring Provider Internal Medicine Rheumatology; Visit Provider Internal Medicine Rheumatology
DX: L40.59 Other psoriatic arthropathy (principal); Z79.899 Other long term (current) drug therapy; L40.8 Other psoriasis; M17.0 Bilateral primary osteoarthritis of knee; H20.012 Primary iridocyclitis, left eye; F41.9 Anxiety disorder, unspecified
CPT/HCPCS: 36415; 80053; 85025

== ENCOUNTER → 2023-03-11 | Outpatient (CLI) | payer MEDICARE, SELFPAY ==
[2023-03-11 10:27] LABS: Absolute Lymphocyte Count 2.16 X10^3/uL (0.83-4.51); Absolute Neutrophil Count 3.5 X10^3/uL (2.0-7.7); Basophil# 0.02 X10^3/uL; Basophil% 0.3 % (0-1); Hematocrit 39.2 % (37-47); Hemoglobin 12.4 g/dL (12.0-15.0); Lymphocyte # 2.16 X10^3/ul (0.83-4.51); Lymphocyte % 32.2 % (19-41); Mean Corp Hgb Conc 31.6 g/dL (32-36); Mean Corpuscular Hgb 30.3 pg (27.0-32.0); Mean Corpuscular Volume 95.8 fL (81-99); Mean Platelet Vol. 11.2 fl (6.2-12.0); Monocyte# 0.85 X10^3/uL; Monocyte% 12.7 % (0-10); NRBC Flagged by Analyzer 0 % (0-5); Neutrophil # 3.45 X10^3/uL (2.7-7.7); Neutrophil % 51.5 % (47-70); Platelet Count 201 K/mm3 (150-450); RBC Distribution Width CV 14.6 % (11.6-14.6); RBC Distribution Width SD 50.4 fl (35.1-43.9); Red Blood Count 4.09 M/mm3 (4.2-5.4); White Blood Count 6.7 K/mm3 (4.4-11.0)
[2023-03-11 11:14] LABS: AST(SGOT) 29 U/L (15-37); Alanine Aminotransfer ALT/SGPT 31 U/L (13-56); Albumin, Serum 3.3 g/dL (3.2-5.0); Alkaline Phosphatase 105 U/L (45-117); Anion Gap 3 (5-15); BUN 18 mg/dL (7-18); Chloride 106 mmol/L (98-107); Creatinine, Serum 0.69 mg/dL (0.55-1.02); EST Glomerular Filtration Rate 86 mL/min (>60); Est Glom Filt Rate - Afr Amer 104 mL/min (>60); Globulin 3.2 g/dL (2.2-4.2); Glucose 97 mg/dL (74-106); Potassium 3.9 mmol/L (3.5-5.1); Protein, Total 6.5 g/dL (6.4-8.2); Sodium Level 139 mmol/L (136-145)
== END | disposition home or self-care (01) ==
PROVIDERS: PCP Student in an Organized Health Care Education/Training Program; Referring Provider Internal Medicine Rheumatology; Visit Provider Internal Medicine Rheumatology
DX: L40.59 Other psoriatic arthropathy (principal); Z79.899 Other long term (current) drug therapy; L40.8 Other psoriasis; M17.0 Bilateral primary osteoarthritis of knee; H20.012 Primary iridocyclitis, left eye; F41.9 Anxiety disorder, unspecified
CPT/HCPCS: 36415; 80053; 85025

== ENCOUNTER → 2023-05-27 | Outpatient (CLI) | payer MEDICARE, SELFPAY ==
[2023-05-27 10:39] LABS: Absolute Lymphocyte Count 2.45 X10^3/uL (0.83-4.51); Absolute Neutrophil Count 2.7 X10^3/uL (2.0-7.7); Basophil# 0.04 X10^3/uL; Basophil% 0.6 % (0-1); Eosinophil# 0.32 X10^3/uL; Hematocrit 41.3 % (37-47); Lymphocyte # 2.45 X10^3/ul (0.83-4.51); Lymphocyte % 38.5 % (19-41); Mean Corp Hgb Conc 31.5 g/dL (32-36); Mean Corpuscular Hgb 29.8 pg (27.0-32.0); Mean Corpuscular Volume 94.7 fL (81-99); Mean Platelet Vol. 11.5 fl (6.2-12.0); Monocyte% 12.6 % (0-10); NRBC Flagged by Analyzer 0 % (0-5); Neutrophil # 2.73 X10^3/uL (2.7-7.7); Neutrophil % 42.8 % (47-70); Platelet Count 240 K/mm3 (150-450); RBC Distribution Width CV 13.6 % (11.6-14.6); RBC Distribution Width SD 46.5 fl (35.1-43.9); Red Blood Count 4.36 M/mm3 (4.2-5.4); White Blood Count 6.4 K/mm3 (4.4-11.0)
[2023-05-27 11:28] LABS: AST(SGOT) 28 U/L (15-37); Alanine Aminotransfer ALT/SGPT 33 U/L (13-56); Albumin, Serum 3.2 g/dL (3.2-5.0); Alkaline Phosphatase 105 U/L (45-117); Anion Gap 4 (5-15); BUN 19 mg/dL (7-18); BUN/Creat Ratio 27.7 RATIO (10-20); Calcium,Total 8.9 mg/dL (8.5-10.1); Chloride 106 mmol/L (98-107); Creatinine, Serum 0.69 mg/dL (0.55-1.02); EST Glomerular Filtration Rate 87 mL/min (>60); Est Glom Filt Rate - Afr Amer 105 mL/min (>60); Globulin 3.2 g/dL (2.2-4.2); Glucose 96 mg/dL (74-106); Potassium 4.7 mmol/L (3.5-5.1); Protein, Total 6.4 g/dL (6.4-8.2); Sodium Level 138 mmol/L (136-145)
== END | disposition home or self-care (01) ==
PROVIDERS: PCP Student in an Organized Health Care Education/Training Program; Referring Provider Internal Medicine Rheumatology; Visit Provider Internal Medicine Rheumatology
DX: L40.59 Other psoriatic arthropathy (principal); Z79.899 Other long term (current) drug therapy
CPT/HCPCS: 36415; 80053; 85025

== ENCOUNTER → 2023-08-19 | Outpatient (CLI) | payer MEDICARE, SELFPAY ==
[2023-08-19 09:56] LABS: Absolute Lymphocyte Count 2.48 X10^3/uL (0.83-4.51); Absolute Neutrophil Count 2.3 X10^3/uL (2.0-7.7); Basophil# 0.03 X10^3/uL; Basophil% 0.5 % (0-1); Eosinophils% 3.4 % (0-5); Hematocrit 40.2 % (37-47); Hemoglobin 12.6 g/dL (12.0-15.0); Lymphocyte # 2.48 X10^3/ul (0.83-4.51); Lymphocyte % 42.8 % (19-41); Mean Corp Hgb Conc 31.3 g/dL (32-36); Mean Corpuscular Hgb 30.2 pg (27.0-32.0); Mean Corpuscular Volume 96.4 fL (81-99); Mean Platelet Vol. 11.3 fl (6.2-12.0); Monocyte# 0.75 X10^3/uL; Monocyte% 12.9 % (0-10); NRBC Flagged by Analyzer 0 % (0-5); Neutrophil # 2.32 X10^3/uL (2.7-7.7); Neutrophil % 40.1 % (47-70); Platelet Count 197 K/mm3 (150-450); RBC Distribution Width CV 13.9 % (11.6-14.6); RBC Distribution Width SD 48.4 fl (35.1-43.9); Red Blood Count 4.17 M/mm3 (4.2-5.4); White Blood Count 5.8 K/mm3 (4.4-11.0)
[2023-08-19 11:46] LABS: AST(SGOT) 25 U/L (15-37); Alanine Aminotransfer ALT/SGPT 27 U/L (13-56); Albumin, Serum 3.2 g/dL (3.2-5.0); Alkaline Phosphatase 111 U/L (45-117); Anion Gap 5 (5-15); BUN 20 mg/dL (7-18); BUN/Creat Ratio 27.4 RATIO (10-20); Calcium,Total 9.5 mg/dL (8.5-10.1); Chloride 105 mmol/L (98-107); Creatinine, Serum 0.73 mg/dL (0.55-1.02); EST Glomerular Filtration Rate 81 mL/min (>60); Est Glom Filt Rate - Afr Amer 98 mL/min (>60); Globulin 3.3 g/dL (2.2-4.2); Glucose 103 mg/dL (74-106); Potassium 4.4 mmol/L (3.5-5.1); Protein, Total 6.5 g/dL (6.4-8.2); Sodium Level 139 mmol/L (136-145)
== END | disposition home or self-care (01) ==
PROVIDERS: PCP Student in an Organized Health Care Education/Training Program; Referring Provider Internal Medicine Rheumatology; Visit Provider Internal Medicine Rheumatology
DX: L40.59 Other psoriatic arthropathy (principal); Z79.899 Other long term (current) drug therapy
CPT/HCPCS: 36415; 80053; 85025

== ENCOUNTER → 2023-12-09 | Outpatient (CLI) | payer MEDICARE, SELFPAY ==
[2023-12-09 10:26] LABS: Absolute Lymphocyte Count 2.01 X10^3/uL (0.83-4.51); Absolute Neutrophil Count 3.7 X10^3/uL (2.0-7.7); Basophil# 0.03 X10^3/uL; Basophil% 0.5 % (0-1); Eosinophil# 0.16 X10^3/uL; Eosinophils% 2.4 % (0-5); Hematocrit 38.5 % (37-47); Hemoglobin 11.9 g/dL (12.0-15.0); Lymphocyte # 2.01 X10^3/ul (0.83-4.51); Lymphocyte % 30.6 % (19-41); Mean Corp Hgb Conc 30.9 g/dL (32-36); Mean Corpuscular Volume 93.7 fL (81-99); Mean Platelet Vol. 10.6 fl (6.2-12.0); Monocyte% 9.1 % (0-10); NRBC Flagged by Analyzer 0 % (0-5); Neutrophil # 3.69 X10^3/uL (2.7-7.7); Neutrophil % 56.3 % (47-70); Platelet Count 212 K/mm3 (150-450); RBC Distribution Width SD 47.8 fl (35.1-43.9); Red Blood Count 4.11 M/mm3 (4.2-5.4); White Blood Count 6.6 K/mm3 (4.4-11.0)
[2023-12-09 11:33] LABS: ALB/GLOB Ratio 0.9 RATIO (0.9-2.4); AST(SGOT) 27 U/L (15-37); Alanine Aminotransfer ALT/SGPT 30 U/L (13-56); Albumin, Serum 2.9 g/dL (3.2-5.0); Alkaline Phosphatase 108 U/L (45-117); Anion Gap 3 (5-15); BUN 17 mg/dL (7-18); BUN/Creat Ratio 26.5 RATIO (10-20); Chloride 106 mmol/L (98-107); Creatinine, Serum 0.64 mg/dL (0.55-1.02); EST Glomerular Filtration Rate 94 mL/min (>60); Est Glom Filt Rate - Afr Amer 114 mL/min (>60); Globulin 3.4 g/dL (2.2-4.2); Glucose 100 mg/dL (74-106); Potassium 4.2 mmol/L (3.5-5.1); Protein, Total 6.3 g/dL (6.4-8.2); Sodium Level 138 mmol/L (136-145)
== END | disposition home or self-care (01) ==
PROVIDERS: PCP Student in an Organized Health Care Education/Training Program; Referring Provider Internal Medicine Rheumatology; Visit Provider Internal Medicine Rheumatology
DX: L40.59 Other psoriatic arthropathy (principal); Z79.899 Other long term (current) drug therapy
CPT/HCPCS: 36415; 80053; 85025

== ENCOUNTER → 2024-01-03 | Outpatient (CLI) | payer MEDICARE, SELFPAY ==
[2024-01-03 12:35] LABS: Absolute Lymphocyte Count 2.24 X10^3/uL (0.83-4.51); Absolute Neutrophil Count 5.2 X10^3/uL (2.0-7.7); Basophil# 0.04 X10^3/uL; Basophil% 0.5 % (0-1); Eosinophil# 0.17 X10^3/uL; Hematocrit 41.2 % (37-47); Lymphocyte # 2.24 X10^3/ul (0.83-4.51); Lymphocyte % 26.2 % (19-41); Mean Corp Hgb Conc 31.6 g/dL (32-36); Mean Corpuscular Hgb 29.7 pg (27.0-32.0); Mean Corpuscular Volume 94.3 fL (81-99); Mean Platelet Vol. 11.2 fl (6.2-12.0); Monocyte# 0.78 X10^3/uL; Monocyte% 9.1 % (0-10); NRBC Flagged by Analyzer 0 % (0-5); Neutrophil # 5.24 X10^3/uL (2.7-7.7); Neutrophil % 61.4 % (47-70); Platelet Count 222 K/mm3 (150-450); RBC Distribution Width SD 48.3 fl (35.1-43.9); Red Blood Count 4.37 M/mm3 (4.2-5.4); White Blood Count 8.5 K/mm3 (4.4-11.0)
[2024-01-03 13:21] LABS: AST(SGOT) 22 U/L (15-37); Alanine Aminotransfer ALT/SGPT 36 U/L (13-56); Albumin, Serum 3.1 g/dL (3.2-5.0); Alkaline Phosphatase 115 U/L (45-117); Anion Gap 3 (5-15); BUN 12 mg/dL (7-18); BUN/Creat Ratio 19.5 RATIO (10-20); Calcium,Total 9.1 mg/dL (8.5-10.1); Chloride 105 mmol/L (98-107); Creatinine, Serum 0.62 mg/dL (0.55-1.02); EST Glomerular Filtration Rate 98 mL/min (>60); Est Glom Filt Rate - Afr Amer 119 mL/min (>60); Globulin 3.1 g/dL (2.2-4.2); Glucose 98 mg/dL (74-106); Potassium 4.6 mmol/L (3.5-5.1); Protein, Total 6.2 g/dL (6.4-8.2); Sodium Level 138 mmol/L (136-145)
== END | disposition home or self-care (01) ==
LOC: MTLAB 10:43
PROVIDERS: PCP Student in an Organized Health Care Education/Training Program; Referring Provider Internal Medicine Rheumatology; Visit Provider Internal Medicine Rheumatology
DX: L40.59 Other psoriatic arthropathy (principal); Z79.899 Other long term (current) drug therapy
CPT/HCPCS: 36415; 80053; 85025

== ENCOUNTER → 2024-02-05 | Outpatient (CLI) | payer MEDICARE, SELFPAY ==
[2024-02-05 12:39] LABS: Absolute Neutrophil Count 5.5 X10^3/uL (2.0-7.7); Basophil# 0.05 X10^3/uL; Basophil% 0.6 % (0-1); Eosinophil# 0.18 X10^3/uL; Eosinophils% 2.1 % (0-5); Hematocrit 39.7 % (37-47); Hemoglobin 12.9 g/dL (12.0-15.0); Lymphocyte % 22.9 % (19-41); Mean Corp Hgb Conc 32.5 g/dL (32-36); Mean Corpuscular Hgb 29.9 pg (27.0-32.0); Mean Corpuscular Volume 91.9 fL (81-99); Mean Platelet Vol. 11.1 fl (6.2-12.0); Monocyte# 0.92 X10^3/uL; Monocyte% 10.6 % (0-10); NRBC Flagged by Analyzer 0 % (0-5); Neutrophil # 5.51 X10^3/uL (2.7-7.7); Neutrophil % 63.1 % (47-70); Platelet Count 196 K/mm3 (150-450); RBC Distribution Width SD 50.1 fl (35.1-43.9); Red Blood Count 4.32 M/mm3 (4.2-5.4); White Blood Count 8.7 K/mm3 (4.4-11.0)
[2024-02-05 12:58] LABS: AST(SGOT) 24 U/L (15-37); Alanine Aminotransfer ALT/SGPT 28 U/L (13-56); Albumin, Serum 3.1 g/dL (3.2-5.0); Alkaline Phosphatase 126 U/L (45-117); Anion Gap 4 (5-15); BUN 13 mg/dL (7-18); BUN/Creat Ratio 21.7 RATIO (10-20); Chloride 106 mmol/L (98-107); EST Glomerular Filtration Rate 101 mL/min (>60); Est Glom Filt Rate - Afr Amer 123 mL/min (>60); Globulin 3.1 g/dL (2.2-4.2); Glucose 96 mg/dL (74-106); Potassium 4.2 mmol/L (3.5-5.1); Protein, Total 6.2 g/dL (6.4-8.2); Sodium Level 139 mmol/L (136-145)
== END | disposition home or self-care (01) ==
LOC: MTLAB 10:14
PROVIDERS: PCP Student in an Organized Health Care Education/Training Program; Referring Provider Internal Medicine Rheumatology; Visit Provider Internal Medicine Rheumatology
DX: L40.59 Other psoriatic arthropathy (principal); Z79.899 Other long term (current) drug therapy
CPT/HCPCS: 36415; 80053; 85025

== ENCOUNTER → 2024-04-06 | Outpatient (CLI) | payer MEDICARE, SELFPAY ==
[2024-04-06 12:22] LABS: Absolute Neutrophil Count 6.4 X10^3/uL (2.0-7.7); Basophil# 0.03 X10^3/uL; Basophil% 0.3 % (0-1); Eosinophil# 0.11 X10^3/uL; Eosinophils% 1.2 % (0-5); Hemoglobin 12.4 g/dL (12.0-15.0); Lymphocyte % 21.9 % (19-41); Mean Corp Hgb Conc 31.8 g/dL (32-36); Mean Corpuscular Hgb 29.9 pg (27.0-32.0); Mean Platelet Vol. 10.8 fl (6.2-12.0); Monocyte# 0.61 X10^3/uL; Monocyte% 6.7 % (0-10); NRBC Flagged by Analyzer 0 % (0-5); Neutrophil # 6.35 X10^3/uL (2.7-7.7); Neutrophil % 69.4 % (47-70); Platelet Count 222 K/mm3 (150-450); RBC Distribution Width CV 14.3 % (11.6-14.6); RBC Distribution Width SD 48.5 fl (35.1-43.9); Red Blood Count 4.15 M/mm3 (4.2-5.4); White Blood Count 9.2 K/mm3 (4.4-11.0)
[2024-04-06 13:04] LABS: ALB/GLOB Ratio 1.1 RATIO (0.9-2.4); AST(SGOT) 25 U/L (15-37); Alanine Aminotransfer ALT/SGPT 29 U/L (13-56); Albumin, Serum 3.4 g/dL (3.2-5.0); Alkaline Phosphatase 119 U/L (45-117); Anion Gap 7 (5-15); BUN 9 mg/dL (7-18); BUN/Creat Ratio 14.4 RATIO (10-20); Calcium,Total 9.1 mg/dL (8.5-10.1); Chloride 102 mmol/L (98-107); Creatinine, Serum 0.62 mg/dL (0.55-1.02); EST Glomerular Filtration Rate 97 mL/min (>60); Est Glom Filt Rate - Afr Amer 117 mL/min (>60); Globulin 3.1 g/dL (2.2-4.2); Glucose 100 mg/dL (74-106); Potassium 4.2 mmol/L (3.5-5.1); Protein, Total 6.5 g/dL (6.4-8.2); Sodium Level 136 mmol/L (136-145)
== END | disposition home or self-care (01) ==
LOC: MTLAB 10:23
PROVIDERS: PCP Student in an Organized Health Care Education/Training Program; Referring Provider Internal Medicine Rheumatology; Visit Provider Internal Medicine Rheumatology
DX: L40.59 Other psoriatic arthropathy (principal); Z79.899 Other long term (current) drug therapy; L40.8 Other psoriasis; M17.0 Bilateral primary osteoarthritis of knee
CPT/HCPCS: 36415; 80053; 85025

== ENCOUNTER → 2024-06-26 | Outpatient (CLI) | payer MEDICARE, SELFPAY ==
[2024-06-26 12:38] LABS: Absolute Lymphocyte Count 2.05 X10^3/uL (0.83-4.51); Basophil# 0.04 X10^3/uL; Basophil% 0.7 % (0-1); Eosinophil# 0.17 X10^3/uL; Eosinophils% 2.8 % (0-5); Hematocrit 38.1 % (37-47); Hemoglobin 12.6 g/dL (12.0-15.0); Lymphocyte # 2.05 X10^3/ul (0.83-4.51); Mean Corp Hgb Conc 33.1 g/dL (32-36); Mean Corpuscular Hgb 31.5 pg (27.0-32.0); Mean Corpuscular Volume 95.3 fL (81-99); Mean Platelet Vol. 11.3 fl (6.2-12.0); Monocyte% 11.6 % (0-10); NRBC Flagged by Analyzer 0 % (0-5); Neutrophil # 3.01 X10^3/uL (2.7-7.7); Neutrophil % 49.9 % (47-70); Platelet Count 251 K/mm3 (150-450); RBC Distribution Width CV 15.2 % (11.6-14.6); RBC Distribution Width SD 52.2 fl (35.1-43.9)
[2024-06-26 12:59] LABS: AST(SGOT) 32 U/L (<=31); Alanine Aminotransfer ALT/SGPT 28 U/L (<=34); Albumin, Serum 3.1 g/dL (3.4-4.8); Alkaline Phosphatase 119 U/L (35-104); Anion Gap 12 (5-15); BUN 13 mg/dL (4-19); BUN/Creat Ratio 19.6 RATIO (10-20); Calcium,Total 9.1 mg/dL (7.6-11.0); Carbon Dioxide 25.4 mmol/L (21.0-32.0); Chloride 102 mmol/L (98-108); Creatinine, Serum 0.65 mg/dL (0.70-1.20); EST Glomerular Filtration Rate 87 (>60); Globulin 3.2 g/dL (2.2-4.2); Glucose 92 mg/dL (70-99); Potassium 4.7 mmol/L (3.3-5.1); Protein, Total 6.3 g/dL (5.9-8.4); Sodium Level 139 mmol/L (133-145); Total Bilirubin 0.35 mg/dL (0.00-1.30)
== END | disposition home or self-care (01) ==
LOC: MTLAB 09:51
PROVIDERS: PCP Student in an Organized Health Care Education/Training Program; Referring Provider Internal Medicine Rheumatology; Visit Provider Internal Medicine Rheumatology
DX: L40.59 Other psoriatic arthropathy (principal); Z79.899 Other long term (current) drug therapy
CPT/HCPCS: 36415; 80053; 85025

== ENCOUNTER 2024-08-13 17:23 | Observation (INO) | payer MEDICARE, SELFPAY ==
[2024-08-13 17:24] VITALS: BP 169/88; PULSE 63; RESP 16; TEMP 36.8; O2SAT 100; BMI 21.6
[2024-08-13 18:11] VITALS: BMI 22.8
--- NOTE | 2024-08-13 18:12 | ED.RN ---
PT WAS HAVING SOME TINGLING ON LEFT SIDE OF FACE, TINGLING AND NUMBNESS HAS RESOLVED. NIH SCORE OF 0 PER THIS NURSE
--- NOTE | 2024-08-13 18:34 | CT_ITS ---
EXAM: BRAIN/HEAD WITHOUT CONTRAST CLINICAL HISTORY: 84 y/o F with LEFT-SIDED PARESTHESIAS, RESOLVED. COMPARISON: None. TECHNIQUE: Routine CT imaging of the head without IV contrast. Additional multiplanar reformats were obtained. Dose reduction techniques were used including intermediate exposure control (AEC),iterative reconstruction technique, and/or mA and/or KV dose adjustments based on patient's size. FINDINGS: The ventricles, sulci and cisterns are mildly prominent, compatible with patient age. There is no evidence of intracranial hemorrhage or herniation. There is no midline shift, mass effect, or extra- axial collection. Mild scattered supratentorial white matter hypodensities. The orbits, visualized paranasal sinuses and mastoids are unremarkable. No acute calvarial fracture or scalp hematoma. Small soft tissue lesion along the right cranial vertex, likely a sebaceous cyst. CT/Brain/Head without Contrast IMPRESSION: No acute intracranial finding. Reading Location: [id number]
--- NOTE | 2024-08-13 18:34 | CT_ITS ---
PROCEDURE: CTA HEAD AND NECK W/ CONTRAST 08/13/2024 REASON FOR EXAM: TIA, LEFT-SIDED PARESTHESIAS TECHNIQUE: CTA imaging of the head and neck from the aortic arch to the skull vertex with out contrast and with intravenous contrast. Multiplanar and multisequence images were obtained. CONTRAST: Isovue 370 VOLUME: 100 mL One or more dose reduction techniques were used (e.g., Automated exposure control, adjustment of the mA and/or kV according to patient size, use of iterative reconstruction technique). RADIATION DOSE SUMMARY: CTDlvol: 45 mGy DLP: 600 mGycm COMPARISON: Same-day CT head. FINDINGS: See same day CT head for discussion of nonvascular findings. CTA neck: Standard three-vessel aortic arch with calcific plaque of the left subclavian artery at its origin, resulting in mild focal narrowing. The bilateral vertebral arteries are widely patent at their origins. Diminutive/hypoplastic left vertebral artery. The bilateral cervical carotid arteries are widely patent without focal narrowing or occlusion by NASCET criteria. CTA head: The bilateral carotid siphons are widely patent. The bilateral anterior, middle and posterior cerebral arteries are widely patent. No aneurysm or AVM. Major venous structures: Unremarkable. Other findings: Prior dental restorations. Severe cervical spondylosis. Moderate arthrosis of the atlantoaxial joint. CT/CTA Head AND Neck W/ Contrast IMPRESSION: 1. No large vessel occlusion, aneurysm or AVM. 2. 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 3. Severe cervical spondylosis. Reading Location: [id number]
--- NOTE | 2024-08-13 18:53 | EDS_ITS ---
HPI <SUSAN Cervantes - Last Filed: 08/13/24 21:23> History of Present Illness Chief Complaint: Neuro S/Sx Narrative Narrative: Patient presenting today due to left-sided paresthesias to the left side of her face and left upper extremity that started around 4:30 PM as she was cooking dinner. She reports that the symptoms lasted about 30 minutes, she called her PCPs office and they recommended that she come into the emergency department to be evaluated. She denies any history of stroke or TIA. She has a PMH of HTN and psoriatic arthritis. She reports that her symptoms have completely resolved, she is currently feeling well. She denies any recent illness, fevers, chills, nausea, and vomiting. PFSH <SUSAN Cervantes - Last Filed: 08/13/24 21:23> PFSH Medical History DDD (degenerative disc disease) Psoriatic arthritis Home Medications ?Medication ?Instructions ?Recorded ?Last Taken ?Type ascorbic acid (vitamin C) 500 mg 500 mg PO DAILY@0800 SUPPLEMENT 09/07/16 08/12/24 History tablet (Vitamin C) cholecalciferol (vitamin D3) 125 5,000 unit PO DAILY [facility] 09/07/16 09/06/16 History mcg (5,000 unit) capsule coenzyme Q10 100 mg capsule (Co 100 mg PO DAILY SUPPLE MENT 09/07/16 08/12/24 History Q-10) folic acid 1 mg tablet 2 mg PO DAILY SUPPLEMENT 09/1708/12/24 History glutamine 500 mg capsule 500 mg PO DAILY SUPPLEMENT 0 09/07/16 Unknown History (L-Glutamine) lutein 20 mg capsule 20 mg PO DAILY SUPPLEMENT 08/12/24 History methotrexate sodium 2.5 mg tablet 12.5 mg PO LORD ARHTRI TIS 09/07/16 08/08/24 History red yeast rice 600 mg capsule 600 mg PO BID SUPPLEMENT 09/07/16 08/12/24 History cyclobenzaprine 10 mg tablet 10 mg PO TID PRN PRN Back 09/11/16 Unknown Rx pain/muscle spasms #10 tabs amitriptyline 10 mg tablet 10 mg PO QHS mood 08/13/24 Unknown History donepezil 10 mg tablet 10 mg PO QHS memory 08/13/24 Unknown History fluorometholone 0.1 % eye 1 drp ophthalmic (eye) QODAY 08/13/24 Unknown History drops,suspension fluoxetine 10 mg capsule 10 mg PO DAILY depression Unknown History losartan 25 mg tablet 25 mg PO DAILY blood pressur e 08/13/24 Unknown History aspirin 81 mg tablet 81 mg PO DAILY #30 tabs 08/02 05/26 Unknown Rx atorvastatin 40 mg tablet 40 mg PO QHS #30 tabs Unknown Rx Allergy/AdvReac Type Severity Reaction Status Date / Time Penicillins Allergy Unknown Verified 08/13/24 18:11 meperidine HCl (From Demerol) AdvReac Intermediate Vomiting Verified 08/13/24 18:11 sertraline HCl (From Zoloft) AdvReac Intermediate Other Verified 08/13/24 18:11 acetaminophen (From AdvReac Mild Vomiting Verified 08/13/24 18:11 Darvocet-N 100) caffeine AdvReac Mild Other Verified 08/13/24 18:11 codeine AdvReac Mild Vomiting Verified 08/13/24 18:11 ephedrine AdvReac Mild Other Verified 08/13/24 18:11 propoxyphene napsylate (From AdvReac Mild Vomiting Verified 08/13/24 18:11 Darvocet-N 100) tramadol AdvReac Mild Vomiting Verified 08/13/24 18:11 ampicillin AdvReac Unknown Unknown Verified 08/13/24 18:11 griseofulvin AdvReac Unknown Unknown Verified 08/13/24 18:11 guaifenesin (From Entex LA) AdvReac Unknown Unknown Verified 08/13/24 18:11 hydrocodone bitartrate (From AdvReac Unknown Unknown Verified 08/13/24 18:11 Vicodin) phenylephrine HCl (From AdvReac Unknown Unknown Verified 08/13/24 18:11 Entex LA) phenylpropanolamine HCl AdvReac Unknown Unknown Verified 08/13/24 18:11 (From Entex LA) Sulfa (Sulfonamide AdvReac Unknown Unknown Verified 08/13/24 18:11 Antibiotics) Family History Father Cancer Surgical History History of bilateral knee arthroplasty History of carpal tunnel release H/O: hysterectomy Social History (Updated 08/13/24 @ 22:21 by Mary Hanley) Smoking Status: Never smoker ROS <SUSAN Cervantes - Last Filed: 08/13/24 21:23> ROS ED Constitutional Constitutional ED: Denies chills or fever(s) Cardiovascular Cardiovascular: Denies chest pain Respiratory/Chest Respiratory/Chest: Denies dyspnea Gastrointestinal Gastrointestinal: Denies abdominal pain, nausea or vomiting Genitourinary Genitourinary ED: Denies dysuria, hematuria or urinary frequency Musculoskeletal Musculoskeletal: Denies arthralgias or myalgias Integumentary Denies rash Neurologic Neurologic: Reports paresthesias; Denies headache(s) or weakness EXAM <SUSAN Cervantes - Last Filed: 08/13/24 21:23> Physical Exam Const Vital Signs: 08/13/24 17:24 08/13/24 19:24 08/13/24 21:00 Temperature 98.3 F Temperature Source Oral Pulse Rate 63 47 L 50 L Respiratory Rate 16 18 15 Blood Pressure 169/88 H 153/66 H 165/73 H Blood Pressure Mean 115 95 103 Pulse Ox 100 98 100 Oxygen Delivery Method Room Air Room Air 08/13/24 21:12 Temperature 98 F Temperature Source Pulse Rate 59 L Respiratory Rate 14 Blood Pressure 165/73 H Blood Pressure Mean 103 Pulse Ox 100 Oxygen Delivery Method Positive well nourished, well developed and no apparent distress General Appearance ED: well developed HEENT Reports normocephalic and head/scalp atraumatic Mouth ED: Yes moist mucous membranes normal Eyes PERRL and EOMs intact bilaterally Neck full ROM and supple Chest Wall inspection of chest normal Resp normal respiratory effort and clear to auscultation bilaterally Cardio regular rate and regular rhythm GI soft to palpation, non-tender, non-distended and no masses Back/Spine normal ROM and normal to inspection Extremity normal to inspection and full ROM Neuro oriented x3, CN's II-XII intact bilaterally, moves all extremities, no focal motor deficits and no sensory deficits noted Sensorium / Orientation: awake and alert Speech: speech normal Motor Exam: strength 5/5 throughout Psych mental status grossly normal and thought process normal Skin no rashes or lesions noted and no wounds <Dr. Julius Pete DO - Last Filed: 08/14/24 21:27> Physical Exam Const Vital Signs: 08/13/24 17:24 08/13/24 19:24 08/13/24 21:00 Temperature 98.3 F Temperature Source Oral Pulse Rate 63 47 L 50 L Respiratory Rate 16 18 15 Blood Pressure 169/88 H 153/66 H 165/73 H Blood Pressure Mean 115 95 103 Pulse Ox 100 98 100 Oxygen Delivery Method Room Air Room Air 08/13/24 21:12 Temperature 98 F Temperature Source Pulse Rate 59 L Respiratory Rate 14 Blood Pressure 165/73 H Blood Pressure Mean 103 Pulse Ox 100 Oxygen Delivery Method MDM <SUSAN Cervantes - Last Filed: 08/13/24 21:23> [facility] Narrative Medical decision making narrative: Patient presenting today due to paresthesias to her left hand and forearm and left side of the face that started around 4:30 PM as she was cooking dinner. Her symptoms resolved after about 30 minutes. She now has no acute complaints. She has an NIH of 0. No previous history of stroke or TIA. TIA workup will be obtained. Her CBC and BMP are unremarkable. Head CT/CTA showed no acute intracranial abnormality. She has mild narrowing of the left subclavian artery. I do feel she would benefit from admission for TIA workup. I spoke with Dr. Darden and she will be admitted in stable condition. Lab Data Attestation: I reviewed the patient's lab results. Labs: Laboratory Results - last 24 hr 08/13/24 18:49 Hemoglobin A1c 5.7 Radiography Diagnostic Testing: Clinical Impression(s) from Imaging Studies Brain CT 08/13/24 18:34 IMPRESSION: No acute intracranial finding. Reading Location: [facility] Head/Neck CTA 08/13/24 18:34 IMPRESSION: 1. No large vessel occlusion, aneurysm or AVM. 2. 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 3. Severe cervical spondylosis. Reading Location: [facility] EKG Initial EKG: Comments: EKG is 45 bpm sinus bradycardia, no ST elevation, interpreted by attending ED physician. <Dr. Julius Pete DO - Last Filed: 08/14/24 21:27> [facility] MDM Narrative Medical decision making narrative: Patient presenting today due to paresthesias to her left hand and forearm and left side of the face that started around 4:30 PM as she was cooking dinner. Her symptoms resolved after about 30 minutes. She now has no acute complaints. She has an NIH of 0. No previous history of stroke or TIA. TIA workup will be obtained. Her CBC and BMP are unremarkable. Head CT/CTA showed no acute intracranial abnormality. She has mild narrowing of the left subclavian artery. I do feel she would benefit from admission for TIA workup. I spoke with Dr. Darden and she will be admitted in stable condition. Supervisory Physician Note Patient was seen and examined with the Advanced Practice Provider. Nursing notes and vital signs have been reviewed. Pertinent old records have been reviewed. I agree with the essential elements of the JONATHAN's history, physical exam, assessment, and plan. The differential diagnosis and management options were discussed with the JONATHAN. I participated in determining and agree with the management, procedures, final impression and disposition as documented. See changes noted by me. Please see addendum or separate note for any additional details. 84-year-old female with past medical history of arthritis, HTN, HLD presents for evaluation of resolved strokelike symptoms. Around 4:30 PM patient developed left-sided paresthesias to the face and upper extremity. Symptoms lasted about 30 minutes but then completely resolved. No history of CVA or TIA. Gen: A&O x3, NAD Head: Normocephalic, atraumatic Eyes: No sclera icterus, conjunctiva clear, PERRL, EOMI ENT: Moist mucous membranes, No facial asymmetry Neck: Trachea midline, No JVD CV: RRR, no murmurs, no peripheral edema Resp: Lungs CTA BL, no w/r/c GI: Abd soft, non-distended, non-tender, no r/r/g Musc: Full ROM, no deformity, strength +5/5 in all extremities, no pronator drift, no ataxia Skin: Warm, dry, intact Neuro: Alert, oriented, grossly intact, sensation intact, no focal deficits, no dysarthria or aphasia, NIH 0 Psych: Cooperative, appropriate mood and affect Differential diagnosis includes but is not limited to TIA, CVA, electrolyte abnormality. Concern is mostly for TIA given resolved symptoms. EKG was personally reviewed interpreted by me, ED physician. CBC unremarkable without leukocytosis or anemia. Platelets unremarkable. BMP without significant electrolyte abnormality or TRINITY. CT of the head without any acute intracranial abnormality. CTA head and neck shows no LVO or aneurysm. 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 Severe cervical spondylosis. Patient will warrant admission for TIA/CVA workup with MRI brain. Patient confirmed understand the plan. Patient admitted to the hospitalist service. Impression: 1. Resolved paresthesias of the left face and upper extremity 2. Concern for TIA Lab Data Labs: Laboratory Results - last 24 hr 08/13/24 18:49 Hemoglobin A1c 5.7 Radiography Diagnostic Testing: Clinical Impression(s) from Imaging Studies Brain CT 08/13/24 18:34 IMPRESSION: No acute intracranial finding. Reading Location: [facility] Head/Neck CTA 08/13/24 18:34 IMPRESSION: 1. No large vessel occlusion, aneurysm or AVM. 2. 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 3. Severe cervical spondylosis. Reading Location: [facility] Discharge Plan Dx/Rx/DC Orders Clinical Impression: TIA (transient ischemic attack) Disposition Disposition: Acute Care Hospital [facility] Discharge Date/Time: 08/13/24 22:10
[2024-08-13 18:57] LABS: Absolute Lymphocyte Count 1.35 X10^3/uL (0.83-4.51); Absolute Neutrophil Count 4.4 X10^3/uL (2.0-7.7); Basophil# 0.04 X10^3/uL; Basophil% 0.6 % (0-1); Eosinophil# 0.08 X10^3/uL; Eosinophils% 1.3 % (0-5); Hematocrit 40.3 % (37-47); Lymphocyte # 1.35 X10^3/ul (0.83-4.51); Lymphocyte % 21.3 % (19-41); Mean Corp Hgb Conc 32.3 g/dL (32-36); Mean Corpuscular Hgb 30.5 pg (27.0-32.0); Mean Corpuscular Volume 94.6 fL (81-99); Mean Platelet Vol. 10.7 fl (6.2-12.0); Monocyte# 0.45 X10^3/uL; Monocyte% 7.1 % (0-10); NRBC Flagged by Analyzer 0 % (0-5); Neutrophil # 4.41 X10^3/uL (2.7-7.7); Neutrophil % 69.4 % (47-70); Platelet Count 200 K/mm3 (150-450); RBC Distribution Width CV 14.3 % (11.6-14.6); RBC Distribution Width SD 48.3 fl (35.1-43.9); Red Blood Count 4.26 M/mm3 (4.2-5.4); White Blood Count 6.4 K/mm3 (4.4-11.0)
[2024-08-13 19:24] VITALS: BP 153/66; PULSE 47; RESP 18; O2SAT 98
[2024-08-13 20:00] LABS: Anion Gap 11 (5-15); BUN 5 mg/dL (4-19); BUN/Creat Ratio 8.1 RATIO (10-20); Calcium,Total 9.5 mg/dL (7.6-11.0); Carbon Dioxide 26.3 mmol/L (21.0-32.0); Chloride 101 mmol/L (98-108); Creatinine, Serum 0.62 mg/dL (0.70-1.20); EST Glomerular Filtration Rate 88 (>60); Glucose 99 mg/dL (70-99); Potassium 4.1 mmol/L (3.3-5.1); Sodium Level 138 mmol/L (133-145)
[2024-08-13 20:26] LABS: Bedside Glucose 88 mg/dL (74-106)
[2024-08-13 21:00] VITALS: BP 165/73; PULSE 50; RESP 15; O2SAT 100
[2024-08-13 21:12] VITALS: BP 165/73; PULSE 59; RESP 14; TEMP 36.6; O2SAT 100
--- NOTE | 2024-08-13 21:20 | HP.PCM.HOS_ITS ---
HPI - General HPI Narrative ANAYA WILSON, is a 84 F who presents PFSH Home Medications ?Medication ?Instructions ?Recorded ?Last Taken ?Type ascorbic acid (vitamin C) 500 mg 500 mg PO DAILY@0800 SUPPLEMENT 09/07/16 08/12/24 History tablet (Vitamin C) cholecalciferol (vitamin D3) 125 5,000 unit PO DAILY [facility] 09/07/16 09/06/16 History mcg (5,000 unit) capsule coenzyme Q10 100 mg capsule (Co 100 mg PO DAILY SUPPLE MENT 09/07/16 08/12/24 History Q-10) folic acid 1 mg tablet 2 mg PO DAILY SUPPLEMENT 09/1708/12/24 History glutamine 500 mg capsule 500 mg PO DAILY SUPPLEMENT 0 09/07/16 Unknown History (L-Glutamine) lecithin, soy 400 mg capsule 400 mg PO DAILY SUPPLEMEN T 09/07/16 08/12/24 History lutein 20 mg capsule 20 mg PO DAILY SUPPLEMENT 08/12/24 History methotrexate sodium 2.5 mg tablet 12.5 mg PO LORD ARHTRI TIS 09/07/16 08/08/24 History red yeast rice 600 mg capsule 600 mg PO BID SUPPLEMENT 09/07/16 08/12/24 History cyclobenzaprine 10 mg tablet 10 mg PO TID PRN PRN Back 09/11/16 Unknown Rx pain/muscle spasms #10 tabs amitriptyline 10 mg tablet 10 mg PO QHS 08/13/24 Unkno wn History donepezil 10 mg tablet 10 mg PO QHS 08/13/24 Unknow n History fluorometholone 0.1 % eye 1 drp ophthalmic (eye) QODAY 08/13/24 Unknown History drops,suspension fluoxetine 10 mg capsule 10 mg PO DAILY 08/13/24 Unkn own History losartan 25 mg tablet 25 mg PO DAILY 08/13/24 Unkn own History Allergy/AdvReac Type Severity Reaction Status Date / Time Penicillins Allergy Unknown Verified 08/13/24 18:11 meperidine HCl (From Demerol) AdvReac Intermediate Vomiting Verified 08/13/24 18:11 sertraline HCl (From Zoloft) AdvReac Intermediate Other Verified 08/13/24 18:11 acetaminophen (From AdvReac Mild Vomiting Verified 08/13/24 18:11 Darvocet-N 100) caffeine AdvReac Mild Other Verified 08/13/24 18:11 codeine AdvReac Mild Vomiting Verified 08/13/24 18:11 ephedrine AdvReac Mild Other Verified 08/13/24 18:11 propoxyphene napsylate (From AdvReac Mild Vomiting Verified 08/13/24 18:11 Darvocet-N 100) tramadol AdvReac Mild Vomiting Verified 08/13/24 18:11 ampicillin AdvReac Unknown Unknown Verified 08/13/24 18:11 griseofulvin AdvReac Unknown Unknown Verified 08/13/24 18:11 guaifenesin (From Entex LA) AdvReac Unknown Unknown Verified 08/13/24 18:11 hydrocodone bitartrate (From AdvReac Unknown Unknown Verified 08/13/24 18:11 Vicodin) phenylephrine HCl (From AdvReac Unknown Unknown Verified 08/13/24 18:11 Entex LA) phenylpropanolamine HCl AdvReac Unknown Unknown Verified 08/13/24 18:11 (From Entex LA) Sulfa (Sulfonamide AdvReac Unknown Unknown Verified 08/13/24 18:11 Antibiotics) Social History Smoking Status: Never smoker Vital Signs Vital Signs Vital Signs: 08/13/24 17:24 08/13/24 19:24 08/13/24 21:00 Temperature 98.3 F Temperature Source Oral Pulse Rate 63 47 L 50 L Respiratory Rate 16 18 15 Blood Pressure 169/88 H 153/66 H 165/73 H Blood Pressure Mean 115 95 103 Pulse Ox 100 98 100 Oxygen Delivery Method Room Air Room Air 08/13/24 21:12 Temperature 98 F Temperature Source Pulse Rate 59 L Respiratory Rate 14 Blood Pressure 165/73 H Blood Pressure Mean 103 Pulse Ox 100 Oxygen Delivery Method Weight Weight: 55 kg Body Mass Index (BMI) 22.8 Results Lab / Micro Data 08/13/24 18:49 08/13/24 18:49 Labs: Laboratory Results - last 24 hr 08/13/24 18:49: WBC 6.4, RBC 4.26, Hgb 13.0, Hct 40.3, MCV 94.6, MCH 30.5, MCHC 32.3, RDW Std Deviation 48.3 H, RDW Coeff of Kate 14.3, Plt Count 200, MPV 10.7, Immature Gran % (Auto) 0.300, Neut % (Auto) 69.4, Lymph % (Auto) 21.3, [place] % (Auto) 7.1, Eos % (Auto) 1.3, Baso % (Auto) 0.6, Absolute Neuts (auto) 4.4, Absolute Lymphs (auto) 1.35, Nucleated RBC % 0, Sodium 138, Potassium 4.1, Chloride 101, Carbon Dioxide 26.3, Anion Gap 11, BUN 5, Creatinine 0.62 L, Estim Creat Clear Calc 39.50 L, Est GFR (MDRD) Non-Af 88, BUN/Creatinine Ratio 8.1 L, Glucose 99, Calcium 9.5 08/13/24 20:01: POC Glucose 88 Imaging Radiology Impression Brain CT 08/13/24 18:34 IMPRESSION: No acute intracranial finding. Reading Location: [facility] Head/Neck CTA 08/13/24 18:34 IMPRESSION: 1. No large vessel occlusion, aneurysm or AVM. 2. 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 3. Severe cervical spondylosis. Reading Location: [facility]
--- NOTE | 2024-08-13 21:27 | ECHOD_ITS ---
Reason For Study Reason For Study: TIA/Stroke Procedure This was a 2D Doppler, Color Flow transthoracic echocardiogram. Exam performed portable in patient room. Left Ventricle Normal left ventricle. Normal LV thickness. Left ventricular systolic function is normal. The LV ejection fraction is 65 %. Grade 1 diastolic dysfunction. Right Ventricle Normal right ventricle. Normal systolic function. Atria Normal left atrium. Normal right atrium. Mitral Valve There is no stenosis. Trivial mitral valve insufficiency. Tricuspid Valve Normal tricuspid valve. Mild tricuspid valve insufficiency. Aortic Valve Aortic valve is mildly calcified Aortic valve is tricuspid. There is no aortic stenosis. Mild (1+) aortic valve insufficiency. Great Vessels Aortic root dimensions is within normal limits. Pericardium/Pleural No pericardial effusion. Medication Performed a rapid injection of agitated mix of 9 cc saline and 1cc air to assess for atrial septal defect. MMode/2D Measurements & Calculations LVIDd: 3.7 cm IVSd: 0.95 cm Ao root diam: 2.8 cm LVIDs: 2.0 cm LVPWd: 0.92 cm RVDd: 3.2 cm FS: 45.9 % LAV(MOD-bp): 28.4 ml LVAd ap4: 16.3 cm2 SV(MOD-sp4): 23.0 ml LAV(MOD-bp) Indexed: 19.2 ml/m2 LVLd ap4: 6.5 cm SI(MOD-sp4): 15.5 ml/m2 LAV(MOD-sp2): 35.6 ml EDV(MOD-sp4): 34.1 ml LAV(MOD-sp4): 21.5 ml EDV(sp4-el): 34.9 ml LVAs ap4: 8.0 cm2 LVLs ap4: 5.0 cm ESV(MOD-sp4): 11.1 ml ESV(sp4-el): 10.9 ml EF(MOD-sp4): 67.5 % EF(sp4-el): 68.8 % SV(sp4-el): 24.0 ml LA A4 area: 10.7 cm2 LA dimension(2D): 2.7 cm RA A4 area: 7.2 cm2 TAPSE: 2.1 cm Time Measurements MV dec time: 0.31 sec Doppler Measurements & Calculations MV E max hussein: 69.3 cm/sec Lat Peak E' Hussein: 7.4 cm/sec Med Peak E' Hussein: 6.5 cm/sec MV A max hussein: 90.3 cm/sec E/E' lat: 9.4 E/E' med: 10.6 MV E/A: 0.77 Ao V2 max: 154.2 cm/sec LV V1 max: 111.2 cm/sec MV dec slope: 226.3 cm/sec2 Ao max P.7 mmHg LV V1 max P.9 mmHg Ao V2 mean: 103.4 cm/sec LV V1 mean P.4 mmHg Ao mean P.0 mmHg LV V1 mean: 71.4 cm/sec Ao V2 VTI: 33.9 cm LV V1 VTI: 27.3 cm AV (velocity ratio): 0.81 PA V2 max: 93.4 cm/sec PI end-d hussein: 98.3 cm/sec TR max hussein: 259.7 cm/sec TR max P.0 mmHg ECHO/Echo Complete Interpretation Summary The LV ejection fraction is 65 %. Left ventricular systolic function is normal. Mild (1+) aortic valve insufficiency. Grade 1 diastolic dysfunction Trivial mitral valve insufficiency. Ordering Physician: Ramona Darden Referring Physician: Edenilson Nicholson Performed By: Sharon Selby, DARLINE, RVT
--- OUTSIDE RECORDS SUMMARY | 2024-08-13 21:37 | XMS RPT_ITS | CCD ---
Author Organization [facility] Care Team Providers Care Hotshot Superintendent Name Role Phone Edenilson Nicholson DO Primary Care Provider Ino Purdy MD Unavailable Unavailable Fermín Cartwright MD Unavailable Magnolia Preciado PT Unavailable Edenilson Nicholson DO Primary Care Provider Ino Purdy MD Unavailable Unavailable Fermín Cartwright MD Unavailable Magnolia Preciado PT Unavailable EDENILSON NICHOLSON DO Primary Care Physician DR MIAR VILLATORO DO Attending Unavailable EDENILSON NICHOLSON DO Primary Care Unavailable ANGELINE MONTERROSO Referring Unavailable EDENILSON NICHOLSON Primary Care Unavailable EDENILSON NICHOLSON Referring Unavailable EDENILSON NICHOLSON Primary Care Unavailable Edenilson Nicholson DO Primary Care Provider Xavier PLEASURE CRAFT SAILOR.Kandi BROWN Unavailable Cory PARNELL.Angeline BROWN Unavailable MAXIMO PEÑA Attending Unavailable EDENILSON NICHOLSON Primary Care Unavailable EDENILSON NICHOLSON Primary Care Unavailable MARGARET MENDOZA DO Attending Unavailable EDENILSON NICHOLSON Primary Care Unavailable Lefty, Dina Attending Unavailable Edenilson Nicholson Primary Care Unavailable Lefty, Dina Referring Unavailable Edenilson Nicholson Primary Care Unavailable Vellanki, Dina Referring Unavailable Vellanki, Dina Attending Unavailable Lefty Dina Attending Unavailable Edenilson Nicholson Primary Care Unavailable Vellanki, Dina Referring Unavailable Vellanki, Dina Attending Unavailable Nicholson, Edenilson Primary Care Unavailable Vellanki, Dina Referring Unavailable Vellanki, Dina Attending Unavailable Nicholson, Edenilson Primary Care Unavailable Vellanki, Dina Referring Unavailable Nicholson, Edenilson Primary Care Unavailable Vellanki, Dina Attending Unavailable Vellanki, Dina Referring Unavailable NICHOLSON, EDENILSON L Primary Care Unavailable LANI ARNDT Attending Unavailable NICHOLSON, EDENILSON L Primary Care Unavailable SELF Referring Unavailable NICHOLSON, EDENILSON L Primary Care Unavailable JUAN MENDEZ Referring Unavailable NICHOLSON, EDENILSON L Primary Care Unavailable AMERICA MENDEZ Attending Unavailable NICHOLSON, EDENILSON L Primary Care Unavailable NICHOLSON, EDENILSON L Primary Care Unavailable CORY, ANGELINE Attending Unavailable NICHOLSON, EDENILSON L Primary Care Unavailable NICHOLSON, EDENILSON L Primary Care Unavailable KINGA GOLDBERG A Referring Unavailable NICHOLSON, EDENILSON L Primary Care Unavailable TO SIBLEY Attending Unavailab le NICHOLSON, EDENILSON L Primary Care Unavailable SHERRIE GONZALES Referring Unavailable NICHOLSON, EDENILSON L Primary Care Unavailable CORY, ANGELINE Attending Unavailable NICHOLSON, EDENILSON L Primary Care Unavailable NICHOLSON, DEENILSON L Primary Care Unavailable LANI ARNDT Referring Unavailable NICHOLSON, EDENILSON L Primary Care Unavailable NICHOLSON, EDENILSON L Attending Unavailable NICHOLSON, EDENILSON L Primary Care Unavailable ANAMARIA PAUL Attending Unavailable NICHOLSON, EDENILSON L Primary Care Unavailable KINGA GOLDBERG A Attending Unavailable NICHOLSON, EDENILSON L Primary Care Unavailable CORY, ANGELINE Attending Unavailable NICHOLSON, EDENILSON L Primary Care Unavailable CORY, ANGELINE Referring Unavailable NICHOLSON, EDENILSON L Primary Care Unavailable MARY KEITH Attending Unavailable CORY, ANGELINE Referring Unavailable KATHRYN FLORES Attending Unavailable NICHOLSON, EDENILSON L Primary Care Unavailable NICHOLSON, EDENILSON L Primary Care Unavailable MARY KEITH Referring Unavailable KMY LEWIS Attending Unavailable NICHOLSON, EDENILSON L Primary Care Unavailable NICHOLSON, EDENILSON L Primary Care Unavailable NICHOLSON, EDENILSON L Primary Care Unavailable KANDI PARK Attending Unavailabl e NICHOLSON, EDENILSON L Primary Care Unavailable NICHOLSON, EDENILSON L Attending Unavailable CORY, ANGELINE Referring Unavailable NICHOLSON, EDENILSON L Primary Care Unavailable NICHOLSON, EDENILSON L Primary Care Unavailable NICHOLSON, EDENILSON L Attending Unavailable EDENILSON NICHOLSON Primary Care Unavailable KINGA GOLDBERG Attending Unavailable EDENILSON NICHOLSON Primary Care Unavailable JUAN MENDEZ Referring Unavailable EDENILSON NICHOLSON Primary Care Unavailable EDENILSON NICHOLSON Attending Unavailable Allergies Allergy Classification Reported Allergen(s) Allergy Type Date of Onset Reaction(s) Facility (20 sources) Acetaminophen / HYDROcodone; Translations: [HYDROCODONE-ACET AMINOPHEN] Drug Allergy 07-07-19 16 Itching [facility] (20 sources) Caffeine; Translations: [CAFFEINE] Drug Allergy 12-02-19 05 Other [facility] (20 sources) Codeine; Translations: [CODEINE] Drug Allergy 12-02-19 05 Vomiting [facility] (20 sources) ePHEDrine; Translations: [EPHEDRINE] Drug Allergy 12-02-19 05 Other: See Comments [facility] (20 sources) Griseofulvin; Translations: [GRISEOFULVIN] Drug Allergy 12-02-19 05 Unknown [facility] (20 sources) guaiFENesin / Phenylephrine; Translations: [PHENYLEPHRINE- AIFENESIN] Drug Allergy 12-02-19 05 [facility] (20 sources) Meperidine; Translations: [MEPERIDINE (PF)] Drug Allergy 07-07-19 16 Vomiting [facility] (20 sources) Milk Drug Intolerance 11-16-19 17 Intolerance [facility] (20 sources) Sertraline; Translations: [SERTRALINE HCL] Drug Allergy 09-26-19 07 Mental Status Change [facility] Work Phone: (20 sources) traMADol; Translations: [TRAMADOL] Drug Allergy 12-21-19 12 Other: See Comments [facility] Work Phone: (20 sources) Propoxyphene N-Acetaminophen; Translations: [PROPOXYPHENE N-ACETAMINOPHEN] Drug Intolerance 12-02-19 05 Vomiting [facility] (8 sources) Acetaminophen Drug Allergy 09-08-19 17 Vomiting [facility] (8 sources) Ampicillin Drug Allergy 09-08-19 17 Unknown [facility] (8 sources) guaiFENesin Drug Allergy 09-08-19 17 Unknown [facility] (9 sources) HYDROcodone; Translations: [hydrocodone bitartrate] Drug Allergy 09-08-19 17 Unknown [facility] (9 sources) Meperidine; Translations: [meperidine HCl] Drug Allergy 09-08-19 17 Vomiting [facility] (9 sources) Penicillins; Translations: [Penicillins] Allergy to substance 09-08-19 17 Unknown [facility] (9 sources) Phenylephrine; Translations: [phenylephrine HCl] Drug Allergy 09-08-19 17 Unknown [facility] (9 sources) Phenylpropanolami ne; Translations: [phenylpropanolam ine HCl] Drug Allergy 09-08-19 17 Unknown [facility] (9 sources) Propoxyphene; Translations: [propoxyphene napsylate] Drug Allergy 09-08-19 17 Vomiting [facility] (9 sources) Sulfonamides (Antibiotic); Translations: [Sulfa (Sulfonamide Antibiotics)] Propensity to adverse reactions 09-08-19 17 Unknown [facility] (4 sources) MILK CONTAINING PRODUCTS (DAIRY); Translations: [MILK CONTAINING PRODUCTS (DAIRY)] Propensity to adverse reactions to drug (disorder) 11-16-19 17 [facility] Repository (1 source) Acetaminophen Drug Allergy 09-08-19 17 [facility] Repository (1 source) Ampicillin Drug Allergy 09-08-19 17 [facility] Repository (1 source) Caffeine Drug Allergy 09-08-19 17 [facility] Repository (1 source) Codeine Drug Allergy 09-08-19 17 [facility] Repository (1 source) ePHEDrine Drug Allergy 09-08-19 17 [facility] Repository (1 source) Griseofulvin Drug Allergy 09-08-19 17 [facility] Repository (1 source) guaiFENesin Drug Allergy 09-08-19 17 [facility] Repository (1 source) Sertraline Drug Allergy 09-08-19 17 [facility] Repository (1 source) traMADol Drug Allergy 09-08-19 17 [facility] Repository Medications Current Medications Medication Drug Class(es) Dates Sig (Normalized) Sig (Original) [id number] 200 actuat albuterol 0.09 mg/actuat metered dose inhaler (20 sources) beta2-Adrenergic Agonist Start: 04-15-2024 take 2 puff(s) by inhalation every four hours as needed for wheezing albuterol HFA (PROVENTIL HFA, VENTOLIN HFA) 90 mcg/actuation inhaler Indications: Productive cough Inhale 2 Puffs as instructed every 4 hours as needed for wheezing/shortnes s of breath. 1 Each 1 04/15/2024 Active Start: 11-06-2019 End: 12-20-2020 take 2 puff(s) by inhalation every six hours as needed for cough albuterol HFA (PROVENTIL HFA, VENTOLIN HFA) 90 mcg/actuation inhaler Inhale 2 Puffs as instructed every 6 hours as needed (cough/wheeze.). 18 g 1 11/06/2019 12/20/2020 Discontinued amitriptyline hydrochloride 10 mg oral tablet (20 sources) Tricyclic Antidepressant Start: 04-27-2020 End: 01-10-2024 take 1 tablet by mouth once daily at bedtime amitriptyline (ELAVIL) 10 mg tablet Take 1 tablet by mouth daily at bedtime. 90 tablet 2 01/10/2024 Active Comment on above: Take 1 tablet by abdulaziz th daily at bedtime. amoxicillin 500 mg oral capsule (20 sources) Penicillin-class Antibacterial Start: 08-09-2023 End: 08-09-2023 take 4 capsules by mouth once, then take 1 capsule by mouth every hour amoxicillin (AMOXIL) 500 mg capsule Take 4 capsules by mouth one time only for 1 dose. Take 1 hour prior to appointment 4 capsule 0 08/09/2023 08/09/2023 Active Start: 02-06-2023 End: 02-06-2023 take 4 capsules by mouth once, then take 1 capsule by mouth every hour amoxicillin (AMOXIL) 500 mg capsule Take 4 capsules by mouth one time only for 1 dose. Take 1 hour prior to appointment 4 capsule 0 02/06/2023 02/06/2023 Active Start: 11-07-2022 End: 11-07-2022 take 4 capsules by mouth once, then take 1 capsule by mouth every hour amoxicillin (AMOXIL) 500 mg capsule Take 4 capsules by mouth one time only for 1 dose. Take 1 hour prior to appointment 4 capsule 0 11/07/2022 11/07/2022 Start: 05-22-2022 End: 05-22-2022 take 4 capsules by mouth once, then take 1 capsule by mouth every hour amoxicillin (AMOXIL) 500 mg capsule Take 4 capsules by mouth one time only for 1 dose. Take 1 hour prior to appointment 4 capsule 1 05/22/2022 05/22/2022 Start: 04-17-2022 End: 10-12-2022 take 1 capsule by mouth three times daily amoxicillin (POLYMOX, AMOXIL) 500 mg capsule take 1 capsule by mouth three times a day until finished 0 04/17/2022 10/12/2022 Discontinued (Course of therapy completed) Start: 10-12-2021 End: 10-12-2021 take 4 capsules by mouth once, then take 1 capsule by mouth every hour amoxicillin (POLYMOX, AMOXIL) 500 mg capsule Take 4 capsules by mouth one time only for 1 dose. Take 1 hour prior to appointment 4 capsule 1 10/12/2021 10/12/2021 Active Start: 06-29-2021 End: 06-29-2021 take 4 capsules by mouth once, then take 1 capsule by mouth every hour amoxicillin (POLYMOX, AMOXIL) 500 mg capsule Take 4 capsules by mouth one time only for 1 dose. Take 1 hour prior to appointment 4 capsule 1 06/29/2021 06/29/2021 Active Comment on above: Take 4 capsules by m out one time only for 1 dose. Take 1 hour prior to appointment take 1 capsule by mo [facility] three times a day until finished azelaic acid 0.15 mg/mg topical gel (20 sources) Start: 9 End: 3 Azelaic Acid (FINACEA) 15 % gel Indications: Rosacea Apply to affected area once daily. 15 g 1 02/06/2023 Active Comment on above: Apply to affected ar ea once daily. benzonatate 100 mg oral capsule (20 sources) Non-narcotic Antitussive Start: take 2 capsules by mouth three times daily as needed benzonatate (TESSALON PERLE) 100 mg capsule Indications: Acute cough Take 2 capsules by mouth three times a day as needed. 30 capsule 04/26/2024 Active Start: 04-15-2024 End: 04-25-2024 take 1 capsule by mouth three times daily as needed benzonatate (TESSALON PERLE) 100 mg capsule Indications: Productive cough Take 1 capsule by mouth three times a day as needed for up to 10 days. 30 capsule 04/15/2024 04/25/2024 Active Start: 09-20-2022 End: 11-25-2023 take 2 capsules by mouth three times daily as needed benzonatate (TESSALON PERLE) 100 mg capsule Indications: Acute cough , Persistent cough , Decreased lung sounds Take 2 capsules by mouth three times a day as needed. 30 capsule 1 06/27/2023 11/25/2023 Discontinued (Discontinued by Patient) Comment on above: Take 2 capsules by m outh three times daily as needed. cephalexin 500 mg oral capsule (20 sources) Cephalosporin Antibacterial Start: End: take 1 capsule by mouth three times daily cephALEXin (KEFLEX) 500 mg capsule Indications: Urinary frequency Take 1 capsule by mouth three times a day for 7 days. 21 capsule 04/26/2024 05/03/2024 Active Start: 12-24-2023 End: 12-31-2023 take 1 capsule by mouth twice daily cephALEXin (KEFLEX) 500 mg capsule Indications: Skin infection Take 1 capsule by mouth two times a day for 7 days. 14 capsule 12/24/2023 12/31/2023 Active Start: 11-13-2022 End: 11-20-2022 take 1 capsule by mouth twice daily cephALEXin (KEFLEX) 500 mg capsule Take 1 capsule by mouth twice daily for 7 days. 14 capsule 0 11/13/2022 11/20/2022 Start: 04-20-2022 End: 04-27-2022 take 1 capsule by mouth twice daily cephALEXin (KEFLEX) 500 mg capsule Take 1 capsule by mouth twice daily for 7 days. 14 capsule 0 04/20/2022 04/27/2022 Active Start: 02-10-2022 End: 02-17-2022 take 1 capsule by mouth twice daily cephALEXin (KEFLEX) 500 mg capsule Take 1 capsule by mouth twice daily for 7 days. 14 capsule 0 02/10/2022 02/17/2022 Active Start: 01-24-2022 End: 01-31-2022 take 1 capsule by mouth four times daily cephALEXin (KEFLEX) 500 mg capsule Take 1 capsule by mouth four times daily for 7 days. 28 capsule 0 01/24/2022 01/31/2022 Active Comment on above: Take 1 capsule by mo ut four times daily for 7 days. Take 1 capsule by mo uth twice daily for 7 days. cholecalciferol 0.125 mg oral capsule (20 sources) Vitamin D Start: take 5000 [IU] by mouth once daily Cholecalciferol (Vitamin D3) Active 5000 UNIT PO DAILY September 07, 2016 12:00am End: 07-16-2023 take 1 tablet by mouth once daily Cholecalciferol, Vitamin D3, 5,000 unit tab Take 5,000 Units by mouth once daily. 07/16/2023 Discontinued Comment on above: Take 5,000 Units by mouth once daily. clobetasol propionate 0.0005 mg/mg topical ointment (16 sources) Corticosteroid Start: End: clobetasol (TEMOVATE) 0.05 % ointment Indications: Pain in lateral portion of right ankle Apply to affected area two times a day. To posterior ankle 60 g 2 11/25/2023 02/23/2024 Active cyclobenzaprine hydrochloride 5 mg oral tablet (20 sources) Muscle Relaxant Start: 025 End: take 1 tablet by mouth three times daily as needed cyclobenzaprine (FLEXERIL) 5 mg tablet Indications: Acute left-sided low back pain without sciatica Take 1 tablet by mouth three times a day as needed. 30 tablet 1 06/02/2024 Active Start: 03-23-2024 End: 03-28-2024 take 1 tablet by mouth every twelve hours as needed cyclobenzaprine (FLEXERIL) 5 mg tablet Take 1 tablet by mouth two times a day as needed for up to 5 days. 10 tablet 03/23/2024 03/25/2024 Discontinued Start: 07-25-2020 End: 06-27-2022 take 1 tablet by mouth twice daily as needed for muscle spasms cyclobenzaprine (FLEXERIL) 10 mg tablet Indications: Cervical sprain, initial encounter Take 1 tablet by mouth twice daily as needed for Muscle Spasm. 60 tablet 07/25/2020 06/27/2022 Discontinued Start: 09-11-2016 take 10 mg by mouth three times daily as needed Cyclobenzaprine Active 10 MG PO 3 TIMES DAILY NEEDED September 11, 2016 12:00am Comment on above: Take 1 tablet by abdulaziz th twice daily as needed for Muscle Spasm. docusate sodium 100 mg oral capsule (1 source) Start: 3 End: 3 take 1 capsule by mouth twice daily docusate sodium (COLACE) 100 mg capsule Take 1 capsule by mouth twice daily for 14 days. 28 capsule 0 07/18/2022 08/01/2022 Active Comment on above: Take 1 capsule by mo [facility] twice daily for 14 days. donepezil hydrochloride 10 mg oral tablet (20 sources) Start: 4 End: 5 take 1 tablet by mouth once daily at bedtime donepezil (ARICEPT) 10 mg tablet Indications: Dementia without behavioral disturbance (HCC) Take 1 tablet by mouth daily at bedtime. 90 tablet 1 04/02/2024 Active Start: 04-17-2023 End: 09-18-2023 take 1 tablet by mouth once daily at bedtime donepezil (ARICEPT) 5 mg tablet Take 1 tablet by mouth daily at bedtime. 30 tablet 11 04/17/2023 09/18/2023 Discontinued Comment on above: Take 1 tablet by abdulaziz daily at bedtime. famotidine 10 mg oral tablet (20 sources) Histamine-2 Receptor Antagonist Start: 07-16-2023 End: 08-02-2023 take 1 tablet by mouth twice daily famotidine (PEPCID) 10 mg tablet Take 1 tablet by mouth two times a day. 30 tablet 5 08/02/2023 Active Start: 06-11-2022 End: 09-09-2022 take 1 tablet by mouth twice daily famotidine (PEPCID) 10 mg tablet Take 1 tablet by mouth twice daily. 180 tablet 1 06/11/2022 09/09/2022 Start: 03-09-2021 End: 01-30-2022 take 1 tablet by mouth twice daily famotidine (PEPCID) 40 mg tablet Indications: Epigastric abdominal pain Take 1 tablet by mouth twice daily. 180 tablet 1 03/09/2021 11/01/2021 Discontinued Start: 10-03-2020 End: 12-20-2020 take 1 tablet by mouth twice daily famotidine (PEPCID) 40 mg tablet Indications: Epigastric abdominal pain Take 1 tablet by mouth twice daily. 180 tablet 1 10/03/2020 12/20/2020 Discontinued End: 06-09-2022 take 1 tablet by mouth twice daily famotidine (PEPCID) 10 mg tablet Take 10 mg by mouth twice daily. 0 06/09/2022 Discontinued Comment on above: Take 1 tablet by [facility] twice daily. Take 10 mg by mouth twice daily. fluocinolone-skin -revh 0.01 % kit (12 sources) Start: End: fluocinolone-skin [id number] 0.01 % kit Indications: Psoriasis Apply to affected area two times a day. 1 Kit 1 12/05/2023 03/04/2024 Active fluorometholone 1 mg/ml ophthalmic suspension (20 sources) Corticosteroid Start: fluorometholone (FML LIQUID FILM) 0.1 % ophthalmic suspension Use 1 Drop in both eyes once daily. 03/30/2020 Active Comment on above: Use 1 Drop in both e yes once daily. FLUoxetine 10 mg oral capsule (20 sources) Serotonin Reuptake Inhibitor Start: End: take 1 capsule by mouth once daily FLUoxetine (PROZAC) 10 mg capsule Indications: JOSHUA (generalized anxiety disorder) Take 1 capsule by mouth once daily. 30 capsule 5 06/02/2024 Active Start: 06-27-2022 End: 10-22-2023 take 1 capsule by mouth once daily FLUoxetine (PROZAC) 10 mg capsule Indications: JOSHUA (generalized anxiety disorder) Take 1 capsule by mouth once daily. 30 capsule 5 04/17/2023 09/18/2023 Discontinued Comment on above: Take 1 capsule by [facility] once daily. TAKE 1 CAPSULE BY [facility] ONCE DAILY folic acid 1 mg oral tablet (20 sources) Start: 09-07-2016 take 2 mg by mouth once daily Folic Acid Active 2 MG PO DAILY September 07, 2016 12:00am FOLIC ACID ORAL Take by mouth. Active FOLIC ACID ORAL Take by mouth. 0 Active Comment on above: Take by mouth. hydrocortisone acetate 25 mg rectal suppository (20 sources) Corticosteroid Start: End: take 25 mg rectal route every twelve hours as needed hydrocortisone (ANUSOL-HC) 25 mg suppository 1 Suppository by RECTAL route two times a day as needed (hemorrhoids/rectal pain). 12 Each 3 04/29/2024 Active Comment on above: 1 Suppository by REC LUZ route twice daily as needed (hemorrhoids/rectal pain). 1 Suppository by REC LUZ route twice daily for 7 days. 1 Suppository by REC LUZ route two times a day as needed (hemorrhoids/rectal pain). iv contrast (will be provided with radiology test) (1 source) Start: End: iv contrast (will be provided with radiology test) Indications: Pancreas cyst , Cystic mass of pancreas , Abnormal MRI of abdomen MRI PANC/ARETHA Inject, intravenously, once for 1 dose. No IV access, insert saline lock prior to the beginning of sedation, infusion, injection of imaging exam. Discontinue saline lock post exam. If Pt. has a central line or IVAD, may access for administration according to line specific nursing protocol. Once exam is complete flush line and de-access according to line specific nursing protocol in the MR contrast administration guidelines link. 1 Each 0 01/16/2023 01/17/2023 Active Comment on above: MRI PANC/ARETHA Inject, intravenously, once for 1 dose. No IV access, insert saline lock prior to the beginning of sedation, infusion, injection of imaging exam. Discontinue saline lock post exam. If Pt. has a central line or IVAD, may access for administration according to line specific nursing protocol. Once exam is complete flush line and de-access according to line specific nursing protocol in the MR contrast administration guidelines link. ketoconazole 20 mg/ml topical cream (20 sources) Azole Antifungal Start: ketoconazole (NIZORAL) 2 % cream Indications: Fungal nail infection Apply to affected area two times a day. 30 g 1 01/22/2024 Active loratadine 10 mg oral tablet (20 sources) Start: End: take 1 tablet by mouth once daily loratadine (CLARITIN) 10 mg tablet Indications: Bee sting, accidental or unintentional, initial encounter Take 1 tablet by mouth once daily. 30 tablet 01/10/2024 Active Start: 10-20-2021 End: 10-22-2023 take 1 tablet by mouth once daily loratadine (CLARITIN) 10 mg tablet Indications: Bee sting, accidental or unintentional, initial encounter Take 1 tablet by mouth once daily. 30 tablet 11 08/30/2022 10/22/2023 Discontinued Start: 11-10-2020 End: 05-02-2021 take 1 tablet by mouth once daily loratadine (CLARITIN) 10 mg tablet Indications: Bee sting, accidental or unintentional, initial encounter TAKE 1 TABLET BY MOUTH EVERY DAY 30 tablet 11 11/10/2020 05/02/2021 Discontinued Comment on above: Take 1 tablet by abdulaziz th once daily. losartan potassium 25 mg oral tablet (20 sources) Angiotensin 2 Receptor Gonzales Star t: 05-21 End: 04-23 25 take 1 tablet by mouth once daily losartan (COZAAR) 25 mg tablet Indications: Hypertension, essential Take 1 tablet by mouth once daily. 90 tablet 1 06/03/2024 Active Comment on above: Take 1 tablet by abdulaziz once daily. TAKE 1 TABLET BY ABDULAZIZ TH EVERY DAY lutein 20 mg oral capsule (8 sources) Star t: 09-20 17 take 20 mg by mouth once daily Lutein Active 20 MG PO DAILY September 07, 2016 12:00am methylPREDNISolone (3 sources) Corticosteroid Star t: 11-03 24 End: 11-03 24 methylPREDNISolone (MEDROL, ASTRID,) 4 mg Dose-Pack Indications: Pain in lateral portion of right ankle Follow dosing instructions, take with food. 21 tablet 11/25/2023 12/01/2023 Active methylsulfonylmethane 1000 mg oral tablet (8 sources) Star t: 09-20 17 take 1 tablet by mouth twice daily Methylsulfonylmethane (Msm) 1,000 MG tablet Active 1000 MG PO TWICE A DAY September 07, 2016 12:00am nitrofurantoin, macrocrystals 100 mg oral capsule (8 sources) Nitrofuran Antibacterial Star t: 09-20 17 take 100 mg by mouth twice daily Nitrofurantoin Macrocrystal Active 100 MG PO TWICE A DAY September 07, 2016 12:00am nitrofurantoin, macrocrystals 25 mg / nitrofurantoin, monohydrate 75 mg oral capsule (3 sources) Nitrofuran Antibacterial Star t: 04-23 24 End: 05-0 11-21 24 take 1 capsule by mouth twice daily at mealtime nitrofurantoin monohydrate and macrocrystal (MACROBID) 100 mg capsule Take 1 capsule by mouth two times a day with meals for 3 days. 6 capsule 0 07/08/2023 07/11/2023 Active [place]-3 Fatty Acids-Fish Oil (8 sources) Star t: 07-0 7- 17 take 5000 mg by mouth once daily [place]-3 Fatty Acids-Fish Oil Active 5000 MG PO DAILY September 07, 2016 11:33am Start: 09-07-2016 take 5000 mg by mout h once daily [place]-3 Fatty Acids-Fish Oil Active 5000 MG PO DAILY September 06, 2016 11:00pm Start: 09-07-2016 take 5000 mg by mout h once daily [place]-3 Fatty Acids-Fish Oil Active 5000 MG PO DAILY September 07, 2016 12:00am ondansetron 4 mg disintegrating oral tablet (3 sources) Serotonin-3 Receptor Antagonist Start: 05-08-2023 End: 05-15-2023 take 1 tablet by mouth every six hours as needed ondansetron orally disintegrating (ZOFRAN ODT) 4 mg disintegrating tablet Take 1 tablet by mouth every 6 hours as needed for nausea/vomiting for up to 7 days. 20 tablet 0 05/08/2023 05/15/2023 Active Comment on above: Take 1 tablet by abdulaziz th every 6 hours as needed for nausea/vomiting for up to 7 days. penicillin v potassium 500 mg oral tablet (3 sources) Start: 04-07-2022 End: 04-12-2022 take 1 tablet by mouth four times daily penicillin V potassium (V-CILLIN, VEETIDS) 500 mg tablet Indications: Dental infection Take 1 tablet by mouth four times daily for 5 days. 20 tablet 0 04/07/2022 04/12/2022 Active Comment on above: Take 1 tablet by abdulaziz th four times daily for 5 days. predniSONE 20 mg oral tablet (20 sources) Start: 10-12-2022 End: 10-17-2022 take 2 tablets by mouth once daily predniSONE (DELTASONE) 20 mg tablet Indications: Viral bronchitis Take 2 tablets by mouth once daily for 5 days. 10 tablet 0 10/12/2022 10/17/2022 Active Start: 09-25-2022 End: 09-29-2022 take 1 tablet by mouth once daily at mealtime predniSONE (DELTASONE) 20 mg tablet Indications: Acute cough Take 1 tablet by mouth once daily for 4 days. Take daily with food. 4 tablet 0 09/25/2022 09/29/2022 Active Start: 05-02-2021 End: 01-19-2022 predniSONE (DELTASONE) 10 mg tablet Indications: Flank pain Take 20mg (2 tabs)/day x1 week, then 10mg (1 tab)/day x1 week, then stop 21 tablet 06/09/2021 01/19/2022 Discontinued (Course of therapy completed) Comment on above: Take 20mg (2 tabs)/d ay x1 week, then 10mg (1 tab)/day x1 week, then stop Take 1 tablet by abdulaziz once daily for 4 days. Take daily with food. Take 2 tablets by mo [facility] once daily for 5 days. red yeast rice 600 mg oral capsule (20 sources) Start: 09-07-2016 take 600 mg by mouth twice daily Red Yeast Rice Active 600 MG PO TWICE A DAY September 07, 2016 12:00am Start: 05-05-2010 End: 07-16-2023 take 1 tablet by mouth once daily Red Yeast Rice Extract 600 mg ORAL Cap Take by mouth. Take one(1) tablet two(2) times daily. 0 05/05/2010 07/16/2023 Discontinued Comment on above: Take by mouth. Take one(1) tablet two(2) times daily. sulfamethoxazole 800 mg / trimethoprim 160 mg oral tablet (2 sources) Dihydrofolate Reductase Inhibitor Antibacterial, Sulfonamide Antimicrobial Start: 05-07-19 End: 05-17-19 take 1 tablet by mouth twice daily sulfamethoxazole- trimethoprim (BACTRIM DS) 800-160 mg per tablet Indications: Urinary frequency Take 1 tablet by mouth two times a day for 10 days. 20 tablet 05/06/2024 05/16/2024 Active Turmeric-Turmeric Root Extract (8 sources) Start: 09-08-19 take 750 mg by mouth once daily Turmeric-Turmeric Root Extract Active 750 MG PO DAILY September 07, 2016 4:01pm Start: 09-07-2016 take 750 mg by mouth once daily Turmeric-Turmeric Root Extract Active 750 MG PO DAILY September 06, 2016 11:00pm Start: 09-07-2016 take 750 mg by mouth once daily Turmeric-Turmeric Root Extract Active 750 MG PO DAILY September 07, 2016 12:00am ubidecarenone 100 mg oral ca psule (8 sources) Start: 09-07-2016 Coenzyme Q10 ( Co Q-10) 100 MG capsule Active 100 MG PO DAILY September 07, 2016 12:00am vitamin b6 25 mg oral tablet (8 sources) Start: 09-07-2016 Pyridoxine (Vi tamin B6) (Vitamin B-6) 25 MG tablet Active 50 MG PO DAILY September 07, 2016 12:00am Completed/Discontinued Medications Medication Drug Class(es) Dates Sig (Normalized) Sig (Original) amoxicillin 875 mg / clavulanate 125 mg oral tablet (5 sources) Penicillin-class Antibacterial Start: 11-23-2022 End: 11-28-2022 take 1 tablet by mouth twice daily amoxicillin-clav ulanic acid (AUGMENTIN) 875-125 mg per tablet Take 1 tablet by mouth twice daily for 5 days. 10 tablet 0 11/23/2022 11/28/2022 Start: 09-12-2021 End: 09-19-2021 take 1 tablet by mouth twice daily amoxicillin-clavulanic acid (AUGMENTIN) 875-125 mg per tablet Take 1 tablet by mouth twice daily for 7 days. 14 tablet 0 09/12/2021 09/19/2021 Active Comment on above: Take 1 tablet by abdulaziz th twice daily for 7 days. Take 1 tablet by abdulaziz th twice daily for 5 days. ascorbic acid 500 mg oral tablet (20 sources) Vitamin C Start: 11-09-2004 End: 07-16-2023 take 1 tablet by mouth once daily VITAMIN C 500 MG ORAL TAB Take one(1) tablet daily. 0 11/09/2004 07/16/2023 Discontinued Comment on above: Take one(1) tablet d aily. bacitracin zinc 0.5 unt/mg topical ointment (3 sources) Start: 01-21-2023 End: 01-28-2023 bacitracin zinc (ANTIBIOTIC, BACITRACIN ZINC,) 500 unit/gram ointment Indications: Fall, subsequent encounter Apply to affected area two times a day for 7 days. 113 g 0 01/21/2023 01/28/2023 Comment on above: Apply to affected ar ea two times a day for 7 days. Biotin (20 sources) End: 06-27-2023 BIOTIN ORAL Take by mouth once daily. 06/27/2023 Discontinued End: 06-27-2023 BIOTIN ORAL Take by mouth on ce daily. 0 06/27/2023 Discontinued BIOTIN ORAL Take by mouth once daily. 0 Active Comment on above: Take by mouth once d aily. CALCIUM/MAGNESIUM (CALCIUM AND MAGNESIUM ORAL) (20 sources) End: 07-16-2023 take 3 capsules by mouth twice daily CALCIUM/MAGNESIUM (CALCIUM AND MAGNESIUM ORAL) Take 3 capsules by mouth twice daily. 07/16/2023 Discontinued End: 07-16-2023 take 3 capsules by mouth twice daily CALCIUM/MAGNESIUM (CALCIUM AND MAGNESIUM ORAL) Take 3 capsules by mouth twice daily. 0 07/16/2023 Discontinued take 3 capsules by m outh twice daily CALCIUM/MAGNESIUM (CALCIUM AND MAGNESIUM ORAL) Take 3 capsules by mouth twice daily. 0 Active Comment on above: Take 3 capsules by m outh twice daily. dexamethasone 6 mg oral tablet (3 sources) Corticosteroid Start: 022 End: take 1 tablet by mouth once daily at breakfast dexAMETHasone (DECADRON) 6 mg tablet Take 1 tablet by mouth daily with breakfast. 7 tablet 04/10/2021 06/09/2021 Discontinued (Other) Comment on above: Take 1 tablet by abdulaziz th daily with breakfast. diclofenac sodium 0.01 mg/mg topical gel (11 sources) Nonsteroidal Anti-inflammatory Drug Start: 023 End: diclofenac (VOLTAREN ARTHRITIS PAIN) 1 % topical gel Indications: Pain of right lower extremity Apply 2 g to affected area four times daily. As needed to left lower extremity pain or any other joints you may be having pain in 240 g 2 06/27/2022 09/25/2022 Comment on above: Apply 2 g to affecte d area four times daily. As needed to left lower extremity pain or any other joints you may be having pain in glutamine 500 mg oral capsule (20 sources) Amino Acid Start: 007 End: 024 take 1 tablet by mouth once daily Glutamine (L-GLUTAMINE) 500 mg ORAL Cap Take one(1) tablet daily. 0 0 10/04/2006 07/16/2023 Discontinued Comment on above: Take one(1) tablet d aily. 2 ml ketorolac tromethamine 30 mg/ml injection (9 sources) Nonsteroidal Anti-inflammatory Drug, Cyclooxygenase Inhibitor Start: End: keTORolac 30 mg injection (Toradol) Start: 09-11-2016 take 10 mg by mouth every six hours Ketorolac Active 10 MG PO EVERY 6 HOURS September 11, 2016 11:48am lecithin 400 mg oral capsule (20 sources) Start: 10-04-2006 End: 07-16-2023 take 1 tablet by mouth once daily Lecithin 400 mg ORAL Cap Take one(1) tablet daily. 0 0 10/04/2006 07/16/2023 Discontinued Comment on above: Take one(1) tablet d aily. 10 ml lidocaine hydrochloride 10 mg/ml injection (5 sources) Antiarrhythmic, Amide Local Anesthetic Start: 01-14-2023 End: 01-14-2023 lidocaine (PF) 10 mg/mL (1 %) 3 mL injection (XYLOCAINE) Start: 01-31-2021 End: 06-09-2021 lidocaine-glycerin 2 % kit U se 1 application as instructed as needed. For mouth sores 1 Kit 1 01/31/2021 06/09/2021 Discontinued (Other) Comment on above: Use 1 application as instructed as needed. For mouth sores lisinopril 10 mg oral tablet (20 sources) Angiotensin Converting Enzyme Inhibitor Start: End: 3 take 1 tablet by mouth once daily lisinopril (ZESTRIL, PRINIVIL) 10 mg tablet Indications: Hypertension, essential Take 1 tablet by mouth once daily. 30 tablet 07/25/2020 06/27/2021 Discontinued Comment on above: Take 1 tablet by abdulaziz th once daily. Take 1 tablet by abdulaziz th once daily. Take an extra 1/2 tablet (5 mg) if BLOOD PRESSURE is 140/90 or greater meloxicam 15 mg oral tablet (20 sources) Nonsteroidal Anti-inflammatory Drug Start: 2 End: 4 take 1 tablet by mouth once daily meloxicam (MOBIC) 15 mg tablet Take 1 tablet by mouth once daily. 28 tablet 06/20/2022 01/03/2024 Discontinued Start: 01-31-2021 End: 05-01-2021 take 1 tablet by mouth once daily meloxicam (MOBIC) 7.5 mg tablet Take 1 tablet by mouth once daily. 90 tablet 1 01/31/2021 05/01/2021 End: 11-22-2020 take 1 tablet by mouth once daily meloxicam (MOBIC) 7.5 mg tablet Take 7.5 mg by mouth once daily. 11/22/2020 Discontinued Comment on above: TAKE 1 TABLET BY ABDULAZIZ TH ONCE DAILY Take 1 tablet by abdulaziz th once daily. methotrexate 2.5 mg oral tablet (20 sources) Folate Analog Metabolic Inhibitor Start: 10-06-2022 End: 06-27-2023 methotrexate 2.5 mg tablet 2.5 mg tablet, takes 7 tablets every Saturday. Hold Oct.09 dose as took dose early on October 05, 2022. To resume weekly dosage on Sunday October 16, 2022. 10/06/2022 06/27/2023 Discontinued Start: 03-08-2021 End: 10-22-2023 methotrexate 2.5 mg tablet Indications: Inflammatory arthritis Take 6 tablets once weekly,on 56 tablet 03/08/2021 05/16/2021 Discontinued Start: 12-04-2019 End: 03-02-2021 methotrexate 2.5 mg tablet Indications: Inflammatory arthritis Take 6 tablets once weekly. 12/04/2019 03/02/2021 Discontinued Start: 09-07-2016 Methotrexate S odium Active 12.5 MG PO LORD September 07, 2016 12:00am take 5 tablets by mo uth every week, then take 4 tablets by mouth every week methotrexate 2.5 mg tablet TAKE 5 TABLET(S) ORAL ONCE A WEEK START 4 TABS ONCE A WEEK FOR 2 WEEKS Active Comment on above: Take 6 tablets once weekly,on 2.5 mg tablet, takes 7 tablets every Saturday. Hold Oct.09 dose as took dose early on October 05, 2022. To resume weekly dosage on Sunday October 16, 2022. MULTIVITAMIN ORAL (20 sources) End: 06-27-2023 MULTIVITAMIN ORAL Take by mouth once daily. Gummies 06/27/2023 Discontinued End: 06-27-2023 MULTIVITAMIN ORAL Take by mo [facility] once daily. Gummies 0 06/27/2023 Discontinued MULTIVITAMIN ORA L Take by mouth once daily. Gummies 0 Active Comment on above: Take by mouth once d aily. Gummies multivitamin with minerals (VISION/OPTIGEN) tablet (20 sources) Start: 05-21-2017 End: 06-27-2023 take 1 tablet by mouth once daily multivitamin with minerals (VISION/OPTIGEN) tablet Take 1 tablet by mouth once daily. 05/21/2017 06/27/2023 Discontinued Start: 05-21-2017 End: 06-27-2023 take 1 tablet by mouth once daily multivitamin with minerals (VISION/OPTIGEN) tablet Take 1 tablet by mouth once daily. 0 05/21/2017 06/27/2023 Discontinued Start: 05-21-2017 take 1 tablet by abdulaziz th once daily multivitamin with minerals (VISION/OPTIGEN) tablet Take 1 tablet by mouth once daily. 0 05/21/2017 Active Comment on above: Take 1 tablet by abdulaziz th once daily. mupirocin 0.02 mg/mg topical ointment (7 sources) RNA Synthetase Inhibitor Antibacterial Start: 08-01-2022 End: 09-20-2022 mupirocin (BACTROBAN) 2 % ointment Indications: Nasal sore Apply to affected area three times daily. 15 g 0 08/01/2022 09/20/2022 Discontinued (Course of therapy completed) Comment on above: Apply to affected ar ea three times daily. [id number]-3q-amn-epa-fish oil-D3 (VITAMIN-D + OMEGA-3) 350 mg- 1,000 unit cap (20 sources) sdbwc-[id number]-epa -fish oil-D3 (VITAMIN-D + OMEGA-3) 350 mg- 1,000 unit cap Take by mouth. Takes a total of 5,000 daily 0 Active Comment on above: Take by mouth. Takes a total of 5,000 daily [id number]-juq-epa-fish oil-D3 350 mg-400 mg- 1,000 unit cap (20 sources) End: 07-16-2023 bkrey-1i-ygs-epa-fish oil-D3 350 mg-400 mg- 1,000 unit cap Take by mouth. Takes a total of 5,000 daily 07/16/2023 Discontinued End: 07-16-2023 hsffc-0m-ajf-epa-fish oil-D3 350 mg-400 mg- 1,000 unit cap Take by mouth. Takes a total of 5,000 daily 0 07/16/2023 Discontinued jecpa-4x-dcb-epa -fish oil-D3 350 mg-400 mg- 1,000 unit cap Take by mouth. Takes a total of 5,000 daily 0 Active Comment on above: Take by mouth. Takes a total of 5,000 daily polyethylene glycol 3350 86067 mg powder for oral solution (1 source) Osmotic Laxative Start: 10-23-19 End: 12-21-19 polyethylene glycol 3350 (MIRALAX, GLYCOLAX) 17 gram/dose powder Take 17 g by mouth once daily. 238 g 3 10/23/2019 12/20/2020 Discontinued polyethylene glycol 3350 220766 mg / potassium chloride 2970 mg / sodium bicarbonate 6740 mg / sodium chloride 5860 mg / sodium sulfate 65813 mg powder for oral solution (1 source) Osmotic Laxative Start: 04-16-19 End: 04-16-19 peg 3350-Electrolytes (GOLYTELY) 236-22.74-6.74 -5.86 gram suspension Indications: Screening for colon cancer Take 4,000 mL by mouth one time only for 1 dose. Refer to printed prep instructions from your provider. 4000 mL 0 04/16/2022 04/16/2022 Comment on above: Take 4,000 mL by abdulaziz one time only for 1 dose. Refer to printed prep instructions from your provider. Polyethylene Glycols (20 sources) End: 06-27-19 take 1 capsule by mouth once daily as needed polyethylene glycol 3350 (MIRALAX ORAL) Take 1 Cap-Full by mouth once daily as needed. 06/27/2023 Discontinued End: 06-27-2023 take 1 capsule by mouth once daily as needed polyethylene glycol 3350 (MIRALAX ORAL) Take 1 Cap-Full by mouth once daily as needed. 0 06/27/2023 Discontinued take 1 capsule by mo ut once daily as needed polyethylene glycol 3350 (MIRALAX ORAL) Take 1 Cap-Full by mouth once daily as needed. 0 Active take 1 capsule by mo uth once daily polyethylene glycol 3350 (MIRALAX ORAL) Take 1 Cap-Full by mouth once daily. 0 Active Comment on above: Take 1 Cap-Full by m outh once daily. Take 1 Cap-Full by m outh once daily as needed. valACYclovir 1000 mg oral tablet (2 sources) Herpesvirus Nucleoside Analog DNA Polymerase Inhibitor, Herpes Simplex Virus Nucleoside Analog DNA Polymerase Inhibitor, Herpes Zoster Virus Nucleoside Analog DNA Polymerase Inhibitor Start: 2 End: 2 take 1 tablet by mouth three times daily valACYclovir (VALTREX) 1 gram Indications: Recurrent cold sores Take 1 tablet by mouth three times daily for 3 days. 30 tablet 1 07/20/2021 07/23/2021 Comment on above: Take 1 tablet by abdulaziz three times daily for 3 days. Problems Active Problems Problem Classification Problem Date Documented Da te Episodic/Chronic Abdominal hernia (3 sources) Vaginal enterocele; Translations: [Unspecified abdominal hernia without obstruction or gangrene] Episodic Adjustment disorders (20 sources) Adjustment disorder with anxious mood; Translations: [Adjustment disorder with anxiety] Onset: 4 05-12-2013 Chronic Anxiety disorders (20 sources) Generalized anxiety disorder; Translations: [Generalized anxiety disorder] Onset: 3 Chronic Chronic obstructive pulmonary disease and bronchiectasis (20 sources) Chronic obstructive lung disease; Translations: [Chronic obstructive pulmonary disease, unspecified] Onset: 9 10-08-2018 Chronic Complication of device; implant or graft (2 sources) Pain due to knee joint prosthesis; Translations: [Pain due to internal orthopedic prosthetic devices, implants and grafts, initial encounter] 01-11-2023 Episodic Delirium, dementia, and amnestic and other cognitive disorders (20 sources) Dementia; Translations: [Unspecified dementia without behavioral disturbance] Onset: 4 04-17-2023 Chronic Disorders of lipid metabolism (20 sources) Dyslipidemia; Translations: [Hyperlipidemia, unspecified] Onset: 6 05-24-2021 Chronic Disorders of teeth and jaw (1 source) Infection of tooth; Translations: [Periapical abscess without sinus] Episodic E Codes: Fall (1 source) Fall; Translations: [Unspecified fall, subsequent encounter] 01-21-2023 Episodic E Codes: Natural/environment (4 sources) Repetitive motion disorder; Translations: [Overexertion from repetitive movements, initial encounter] Onset: 5 Episodic Esophageal disorders (20 sources) Gastroesophageal reflux disease without esophagitis; Translations: [Gastro-esophageal reflux disease without esophagitis] Onset: 1 10-04-2020 Chronic Essential hypertension (20 sources) Essential hypertension; Translations: [Essential (primary) hypertension] Onset: 8 12-30-2017 Chronic Genitourinary symptoms and ill-defined conditions (20 sources) Urge incontinence of urine; Translations: [Urge incontinence] Onset: 8 05-20-2017 Chronic Headache; including migraine (1 source) Headache; Translations: [Mild headache] Episodic Immunizations and screening for infectious disease (1 source) Contact with or exposure to other viral diseases; Translations: [Exposure to COVID-19 virus] 10-28-2023 Episodic Menopausal disorders (20 sources) Atrophic vaginitis; Translations: [Postmenopausal atrophic vaginitis] Onset: 7 11-01-2016 Chronic Nausea and vomiting (6 sources) Nausea; Translations: [Nausea] Onset: 4 05-08-2023 Episodic Open wounds of head; neck; and trunk (1 source) Laceration of left eyebrow; Translations: [Laceration without foreign body of left eyelid and periocular area, subsequent encounter] 01-21-2023 Episodic Osteoarthritis (20 sources) Osteoarthritis of left knee joint; Translations: [Unilateral primary osteoarthritis, left knee] Onset: 8 Resolved: 8 12-30-2017 Chronic Other aftercare (1 source) Removal of sutures done; Translations: [Encounter for removal of sutures] 01-28-2023 Episodic Other connective tissue disease (20 sources) History of total knee arthroplasty; Translations: [Presence of right artificial knee joint] Onset: 8 07-04-2017 Chronic Other connective tissue disease (1 source) Quadriceps weakness; Translations: [Muscle weakness (generalized)] Episodic Other connective tissue disease (4 sources) Pain in left foot; Translations: [Pain in left foot] Episodic Other connective tissue disease (1 source) Pain in bilateral legs; Translations: [Pain in right leg] Episodic Other connective tissue disease (1 source) Pain in right lower limb; Translations: [Pain in right leg] Episodic Other diseases of bladder and urethra (2 sources) Overactive bladder; Translations: [Overactive bladder] Chronic Other ear and sense organ disorders (1 source) Ear sensations - finding; Translations: [Other specified disorders of left ear] Episodic Other gastrointestinal disorders (20 sources) Irritable bowel syndrome; Translations: [Irritable bowel syndrome without diarrhea] Onset: 8 05-20-2017 Chronic Other gastrointestinal disorders (1 source) Diarrhea; Translations: [Diarrhea, unspecified] Episodic Other gastrointestinal disorders (2 sources) Abdominal bloating; Translations: [Abdominal distension (gaseous)] 05-08-2023 Episodic Other gastrointestinal disorders (1 source) Abdominal distension (gaseous); Translations: [Bloating] Onset: 4 Episodic Other gastrointestinal disorders (10 sources) Feces contents abnormal; Translations: [Other fecal abnormalities] Onset: 5 06-10-2024 Episodic Other inflammatory condition of skin (20 sources) Psoriatic arthritis; Translations: [Other psoriatic arthropathy] Onset: 7 05-23-2016 Chronic Other inflammatory condition of skin (20 sources) Psoriasis; Translations: [Psoriasis, unspecified] Onset: 7 05-23-2016 Chronic Other inflammatory condition of skin (1 source) Rosacea; Translations: [Rosacea, unspecified] 02-06-2023 Chronic Other inflammatory condition of skin (1 source) Other psoriatic arthropathy; Translations: [Other psoriatic arthropathy] Onset: 5 Chronic Other inflammatory condition of skin (4 sources) Erythema; Translations: [Erythematous condition, unspecified] Episodic Other injuries and conditions due to external causes (1 source) Injury of ribs; Translations: [Unspecified injury of thorax, initial encounter] Episodic Other injuries and conditions due to external causes (1 source) Injury of left hand; Translations: [Unspecified injury of left wrist, hand and finger(s), initial encounter] Episodic Other injuries and conditions due to external causes (1 source) Injury of left hip region; Translations: [Unspecified injury of left hip, initial encounter] 04-10-2021 Episodic Other injuries and conditions due to external causes (1 source) Other injury of unspecified body region, initial encounter; Translations: [Muscle strain] Onset: 5 Episodic Other injuries and conditions due to external causes (1 source) Other injury of other muscle(s) and tendon(s) at lower leg level, left leg, initial encounter; Translations: [Sprains and strains of unspecified site of knee and leg] 06-03-2024 Episodic Other liver diseases (2 sources) High lipase level in serum; Translations: [Abnormal levels of other serum enzymes] 05-08-2023 Episodic Other liver diseases (1 source) Abnormal levels of other serum enzymes; Translations: [Elevated lipase] Onset: 4 Episodic Other lower respiratory disease (4 sources) Persistent cough; Translations: [Cough, persistent] Episodic Other lower respiratory disease (2 sources) Decreased breath sounds; Translations: [Other abnormalities of breathing] 06-27-2023 Episodic Other lower respiratory disease (2 sources) Cough; 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] 04-10-2021 Episodic Other lower respiratory disease (1 source) Productive cough ; Translations: [Productive cough] 04-15-2024 Episodic Other nervous system disorders (1 source) Other chronic pain; Translations: [Chronic left-sided low back pain without sciatica] Onset: 5 Chronic Other non-traumatic joint disorders (2 sources) Pain in right knee; Translations: [Pain in joint, lower leg] Episodic Other non-traumatic joint disorders (2 sources) Ankle pain; Translations: [Pain in right ankle and joints of right foot] 11-25-2023 Episodic Other non-traumatic joint disorders (1 source) Multiple joint pain; Translations: [Pain in unspecified joint] 05-02-2021 Episodic Other non-traumatic joint disorders (1 source) Hip pain; Translations: [Pain in unspecified hip] 04-10-2021 Episodic Other screening for suspected conditions (not mental disorders or infectious disease) (6 sources) Patient encounter status; Translations: [Encounter for screening for malignant neoplasm of colon] Onset: 4 Episodic Other skin disorders (1 source) Disorder of scalp; Translations: [Localized swelling, mass and lump, head] Episodic Other skin disorders (2 sources) Eruption; Translations: [Rash and other nonspecific skin eruption] Episodic Other upper respiratory disease (20 sources) Chronic rhinitis; Translations: [Chronic rhinitis] 08-15-2018 Chronic Other upper respiratory disease (1 source) Seasonal allergy; Translations: [Other seasonal allergic rhinitis] Chronic Other upper respiratory infections (1 source) Viral upper respiratory tract infection; Translations: [Acute upper respiratory infection, unspecified] Episodic Prolapse of female genital organs (20 sources) Disorder of rectum; Translations: [Rectocele] Onset: 1 11-01-2016 Chronic Skin and subcutaneous tissue infections (1 source) Infection of skin; Translations: [Local infection of the skin and subcutaneous tissue, unspecified] 12-24-2023 Episodic Spondylosis; intervertebral disc disorders; other back problems (20 sources) Degeneration of cervical intervertebral disc; Translations: [Other cervical disc degeneration, unspecified cervical region] Onset: 6 05-30-2015 Chronic Spondylosis; intervertebral disc disorders; other back problems (20 sources) Cervical radiculopathy; Translations: [Radiculopathy, cervical region] Onset: 5 03-21-2020 Episodic Sprains and strains (3 sources) Strain of muscle of chest wall; Translations: [Strain of muscle and tendon of front wall of thorax, initial encounter] Onset: 5 Episodic Superficial injury; contusion (2 sources) Insect bite of head; Translations: [Insect bite (nonvenomous) of other part of head, initial encounter] Onset: 5 08-08-2024 Episodic Unclassified (1 source) Acute left-sided low back pain, unspecified whether sciatica present; Translations: [Acute left-sided low back pain, unspecified whether sciatica present] Onset: 5 Unclassified (1 source) Acute left-sided low back pain without sciatica; Translations: [Acute left-sided low back pain without sciatica] Onset: 5 Unclassified (1 source) Chronic left-sided low back pain without sciatica; Translations: [Chronic left-sided low back pain without sciatica] Onset: 5 Unclassified (1 source) Degeneration of intervertebral disc of lumbar region, unspecified whether pain present; Translations: [Degeneration of intervertebral disc of lumbar region, unspecified whether pain present] Onset: 5 Viral infection (1 source) Recurrent herpes simplex labialis; Translations: [Herpesviral vesicular dermatitis] Episodic Past or Other Problems Problem Classification Problem Date Documented Da te Episodic/Chronic Abdominal pain (20 sources) Left lower quadrant pain; Translations: [Left lower quadrant pain] Onset: 11-01-2016 Resolved: 05-20-2017 12-30-2017 Episodic Acute bronchitis (20 sources) Viral bronchitis; Translations: [Acute bronchitis due to other specified organisms] Onset: 03-07-2011 Resolved: 02-01-2012 10-12-2022 Episodic Anal and rectal conditions (20 sources) Rectal prolapse; Translations: [Rectal prolapse] Onset: 08-01-2022 Episodic Deficiency and other anemia (1 source) Iron deficiency anemia, unspecified; Translations: [Iron deficiency anemia, unspecified iron deficiency anemia type] Onset: 12-16-2023 Episodic Diabetes mellitus without complication (20 sources) Impaired fasting glycemia; Translations: [Impaired fasting glucose] Onset: 05-24-2021 05-24-2021 Episodic Diseases of mouth; excluding dental (20 sources) Lesion of lip; Translations: [Diseases of lips] Onset: 03-13-2023 03-13-2023 Episodic Diverticulosis and diverticulitis (20 sources) Diverticulosis of colon; Translations: [Diverticulosis of large intestine without perforation or abscess without bleeding] Resolved: 05-30-2015 05-30-2015 Chronic Gastrointestinal hemorrhage (20 sources) Hemorrhage of rectum and anus; Translations: [Hemorrhage of anus and rectum] Resolved: 09-19-2016 09-19-2016 Episodic Genitourinary symptoms and ill-defined conditions (20 sources) Increased frequency of urination; Translations: [Frequency of micturition] Onset: 02-03-2018 08-12-2019 Episodic Miscellaneous mental health disorders (20 sources) Acute insomnia; Translations: [Adjustment insomnia] Onset: 12-30-2017 12-30-2017 Episodic Mycoses (20 sources) Onychomycosis; Translations: [Tinea unguium] Onset: 01-22-2024 01-22-2024 Episodic Open wounds of extremities (20 sources) Tear of skin; Translations: [Laceration without foreign body, unspecified lower leg, initial encounter] Onset: 05-23-2016 Resolved: 09-19-2016 09-19-2016 Episodic Other bone disease and musculoskeletal deformities (20 sources) Osteopenia; Translations: [Other specified disorders of bone density and structure, unspecified site] Onset: 10-28-2012 02-27-2021 Episodic Other bone disease and musculoskeletal deformities (20 sources) Senile osteopenia; Translations: [Other specified disorders of bone density and structure, unspecified site] Onset: 11-14-2022 11-14-2022 Episodic Other circulatory disease (20 sources) Respiratory crackles; Translations: [Other specified symptoms and signs involving the circulatory and respiratory systems] Onset: 11-14-2022 11-14-2022 Episodic Other connective tissue disease (20 sources) Bursitis of knee; Translations: [Other bursitis of knee, unspecified knee] Onset: 12-07-2020 12-07-2020 Episodic Other connective tissue disease (20 sources) Trochanteric bursitis; Translations: [Trochanteric bursitis, right hip] Onset: 12-07-2020 12-07-2020 Episodic Other connective tissue disease (20 sources) Female pelvic floor dysfunction; Translations: [Other specified disorders of muscle] Onset: 12-05-2021 Episodic Other connective tissue disease (20 sources) Other specified disorders of synovium and tendon, multiple sites; Translations: [Other disorders of synovium, tendon, and bursa] Onset: 01-08-2005 Resolved: 05-30-2015 05-30-2015 Episodic Other connective tissue disease (20 sources) Ganglion of joint; Translations: [Ganglion, unspecified site] Onset: 07-16-2005 Resolved: 09-19-2016 09-19-2016 Episodic Other connective tissue disease (13 sources) Pes anserinus bursitis; Translations: [Other bursitis of knee, unspecified knee] Onset: 12-07-2020 12-07-2020 Episodic Other gastrointestinal disorders (20 sources) Prolapse of intestine; Translations: [Enteroptosis] Onset: 12-05-2021 Episodic Other gastrointestinal disorders (20 sources) Constipation; Translations: [Constipation, unspecified] Resolved: 02-01-2012 02-01-2012 Episodic Other lower respiratory disease (20 sources) Dry cough; Translations: [Dry cough] Onset: 05-23-2016 05-23-2016 Episodic Other lower respiratory disease (20 sources) Chronic cough; Translations: [Chronic cough] Onset: 10-08-2018 10-08-2018 Episodic Other lower respiratory disease (20 sources) Cough; Translations: [Acute cough] Onset: 07-23-2008 Resolved: 02-01-2012 09-20-2022 Episodic Other nervous system disorders (20 sources) Carpal tunnel syndrome; Translations: [Carpal tunnel syndrome, unspecified upper limb] Onset: 11-19-2011 Resolved: 09-19-2016 09-19-2016 Chronic Other nervous system disorders (20 sources) Word finding difficulty ; Translations: [Other speech disturbances] Onset: 08-01-2022 Episodic Other non-traumatic joint disorders (20 sources) Pain in left knee; Translations: [Pain in joint, lower leg] Onset: 05-20-2017 Resolved: 07-04-2017 05-02-2020 Episodic Other non-traumatic joint disorders (1 source) Pain in right ankle and joints of right foot; Translations: [Pain in lateral portion of right ankle] Onset: 11-25-2023 Episodic Other skin disorders (20 sources) Sebaceous cyst of skin; Translations: [Sebaceous cyst] Onset: 10-08-2018 10-08-2018 Episodic Other upper respiratory disease (20 sources) Lesion of nose; Translations: [Other specified disorders of nose and nasal sinuses] Onset: 08-01-2022 Episodic Pancreatic disorders (not diabetes) (20 sources) Cyst of pancreas; Translations: [Cyst of pancreas] Onset: 07-11-2020 07-11-2020 Episodic Poisoning by nonmedicinal substances (7 sources) Bee sting; Translations: [Toxic effect of venom of bees, accidental (unintentional), initial encounter] Onset: 10-22-2023 Episodic Residual codes; unclassified (20 sources) Poor short-term memory ; Translations: [Other amnesia] Onset: 08-01-2022 Episodic Unclassified (1 source) Sprain of right ankle 06-30-2024 Urinary tract infections (20 sources) Urinary tract infectious disease; Translations: [Urinary tract infection, site not specified] Onset: 11-01-2016 Resolved: 05-20-2017 Episodic Results Test Name Value Interpretation Reference Range Facility [facility] 08-08-2024 CNOV Office Visit (UCWSTR ) -- ANAYA WILSON ([id number]) 1940 F Date Time Provider Department 08/08/24 2:15 PM AMERICA MENDEZ WS During your visit today, we recorded the following information about you: Temperature Pulse Respiration Blood pressure 97.7 degrees 57/minute 19/minute 140/72 Weight 54.5 kg America Mendez APRN.[employer] 08/08/2024 2:18 PM Signed I feel that your presentation today is most consistent with some sort of an insect bite or sting. I recommend that you use your home Claritin for symptomatic relief. I do suspect that symptoms should resolve over the next several days. Please follow-up with your family doctor if symptoms are not improving. America Mendez APRN.SH[employer] K[employer] 08/08/2024 2:21 PM Signed This note was created using [employer]. Subjective Anaya Wilson is a 84 year old female. HPI Patient presents today complaining of about 3 days of a tender itchy area to her right cheek. She states that she was out [place] around [place] but does not think that she got stung. She is concerned that maybe it is related to sun exposure. She otherwise denies any fever or any other health concerns. Review of Systems As above Objective BP 140/72 Pulse (!) 57 Temp 36.5 ?C (97.7 ?F) Resp 19 Wt 54.5 kg (120 lb 2.4 oz) SpO2 97% BMI 25.11 kg/m? Physical Exam Vitals and nursing note reviewed. Constitutional: General: She is not in acute distress. Appearance: Normal appearance. She is not ill-appearing. HENT: Head: Normocephalic. Pulmonary: Effort: Pulmonary effort is normal. Musculoskeletal: General: Normal range of motion. Skin: General: Skin is warm. Comments: Approximately a 2 cm diameter mildly erythematous with a raised center lesion to the right cheek. Area is nontender on palpation Neurological: General: No focal deficit present. Mental Status: She is alert and oriented to person, place, and time. Psychiatric: Mood and Affect: Mood normal. Behavior: Behavior normal. Assessment and Plan ASSESSMENT/PLAN: 1. Insect bite of face, initial encounter - ICD9: 910.4, E906.4, ICD10: S00.86XA, W57.XXXA I do feel that patient's presentation is most consistent with some sort of insect bite or sting. notes that it was much larger a day or 2 ago and does seem to be resolving. Patient states it is mostly just itchy now. She will use her home Claritin and follow-up with PCP if symptoms not improving America Mendez APRN.SH[employer] KEEPER Allergies As of Date: 08/08/2024 Noted Allergy Reaction CAFFEINE 12/01/2004 CODEINE 12/01/2004 DARVOCET A500 (PROPOXYPHENE N-REINALDO*12/01/2004 11 - Vomiting DEMEROL (MEPERIDINE (PF)) 07/07/2015 11 - Vomiting ENTEX (PHENYLEPHRINE-GUAIFENESIN ) 12/01/2004 EPHEDRINE 12/01/2004 14 - Other: See Comments Comments: Heart palpitations GRISEOFULVIN 12/01/2004 MILK CONTAINING PRODUCTS (DAIRY) 11/15/2016 5 - Intolerance Comments: Nasal stuffiness TRAMADOL 12/21/2011 14 - Other: See Comments Comments: Nausea, vomiting, dry heaves after carpal tunnel surgery VICODIN (HYDROCODONE-ACETAMINOPHE* 07/07/2015 9 - Itching ZOLOFT (SERTRALINE HCL) 09/25/2006 1 - Mental Status Change Comments: Increased anxiety and feeling of depression. Started in 2005, not noted then Date Reviewed: 08/08/2024 Reviewed by: America Mendez APRN.SHIP KEEPER - Fully Assessed Reason for Visit: Derm Problem [33] Cmt: Bump on right cheek x 3 days Primary Visit Diagnosis:Insect bite of face, initial encounter [S00.86XA, W57.XXXA] Prescriptions as of 08/08/2024 - losartan (COZAAR) 25 mg tablet Take 1 tablet by mouth once daily. - FLUoxetine (PROZAC) 10 mg capsule Take 1 capsule by mouth once daily. - cyclobenzaprine (FLEXERIL) 5 mg tablet Take 1 tablet by mouth three times a day as needed. - hydrocortisone (ANUSOL-HC) 25 mg suppository 1 Suppository by RECTAL route two times a day as needed (hemorrhoids/rectal pain). - benzonatate (TESSALON PERLE) 100 mg capsule Take 2 capsules by mouth three times a day as needed. - albuterol HFA (PROVENTIL HFA, VENTOLIN HFA) 90 mcg/actuation inhaler Inhale 2 Puffs as instructed every 4 hours as needed for wheezing/shortness of breath. - donepezil (ARICEPT) 10 mg tablet Take 1 tablet by mouth daily at bedtime. - ketoconazole (NIZORAL) 2 % cream Apply to affected area two times a day. - amitriptyline (ELAVIL) 10 mg tablet Take 1 tablet by mouth daily at bedtime. - loratadine (CLARITIN) 10 mg tablet Take 1 tablet by mouth once daily. - methotrexate 2.5 mg tablet TAKE 5 TABLET(S) ORAL ONCE A WEEK START 4 TABS ONCE A WEEK FOR 2 WEEKS - famotidine (PEPCID) 10 mg tablet Take 1 tablet by mouth two times a day. - Azelaic Acid (FINACEA) 15 % gel Apply to affected area once daily. - fluorometholone (FML LIQUID FILM) 0.1 % ophthalmic suspension Use 1 Drop in both eyes once daily. - FOLIC ACID ORAL Take by mouth. Meds Comments (more content not included)... Normal [facility] 08-08-2024 [facility] Telephone (AYAZWS) -- ANAYA WILSON ([id number]) 1940 F Date Time Provider Department [facility]08[facility] During your visit today, we recorded the following information about you: Nell Barnett, RN 08/08/2024 12:02 PM Signed Pt called in and reports she was out side and didn't have sunscreen on and got a blister on her cheek. Pt reports she picked the scab off. I told her if she were worried about infection to come into [facility] they are open until 330. Nell Barnett RN Allergies As of Date: 08/08/2024 Noted Allergy Reaction CAFFEINE 12/01/2004 CODEINE 12/01/2004 DARVOCET A500 (PROPOXYPHENE N-REINALDO*12/01/2004 11 - Vomiting DEMEROL (MEPERIDINE (PF)) 07/07/2015 11 - Vomiting ENTEX (PHENYLEPHRINE-GUAIFENESIN ) 12/01/2004 EPHEDRINE 12/01/2004 14 - Other: See Comments Comments: Heart palpitations GRISEOFULVIN 12/01/2004 MILK CONTAINING PRODUCTS (DAIRY) 11/15/2016 5 - Intolerance Comments: Nasal stuffiness TRAMADOL 12/21/2011 14 - Other: See Comments Comments: Nausea, vomiting, dry heaves after carpal tunnel surgery VICODIN (HYDROCODONE-ACETAMINOPHE* 07/07/2015 9 - Itching ZOLOFT (SERTRALINE HCL) 09/25/2006 1 - Mental Status Change Comments: Increased anxiety and feeling of depression. Started in 2005, not noted then Date Reviewed: 08/04/2024 Reviewed by: Johanna Kilpatrick MA - Fully Assessed Reason for Visit: Patient Question [1477] Prescriptions as of 08/08/2024 - losartan (COZAAR) 25 mg tablet Take 1 tablet by mouth once daily. - FLUoxetine (PROZAC) 10 mg capsule Take 1 capsule by mouth once daily. - cyclobenzaprine (FLEXERIL) 5 mg tablet Take 1 tablet by mouth three times a day as needed. - hydrocortisone (ANUSOL-HC) 25 mg suppository 1 Suppository by RECTAL route two times a day as needed (hemorrhoids/rectal pain). - benzonatate (TESSALON PERLE) 100 mg capsule Take 2 capsules by mouth three times a day as needed. - albuterol HFA (PROVENTIL HFA, VENTOLIN HFA) 90 mcg/actuation inhaler Inhale 2 Puffs as instructed every 4 hours as needed for wheezing/shortness of breath. - donepezil (ARICEPT) 10 mg tablet Take 1 tablet by mouth daily at bedtime. - ketoconazole (NIZORAL) 2 % cream Apply to affected area two times a day. - amitriptyline (ELAVIL) 10 mg tablet Take 1 tablet by mouth daily at bedtime. - loratadine (CLARITIN) 10 mg tablet Take 1 tablet by mouth once daily. - methotrexate 2.5 mg tablet TAKE 5 TABLET(S) ORAL ONCE A WEEK START 4 TABS ONCE A WEEK FOR 2 WEEKS - famotidine (PEPCID) 10 mg tablet Take 1 tablet by mouth two times a day. - Azelaic Acid (FINACEA) 15 % gel Apply to affected area once daily. - fluorometholone (FML LIQUID FILM) 0.1 % ophthalmic suspension Use 1 Drop in both eyes once daily. - FOLIC ACID ORAL Take by mouth. Meds Comments as of 07/12/2019: 09/07/16: Not taking motrin or naprosyn. MS Does not take Naprosyn or Ibuprofen [facility] 11-11May 27, 2019 Patient currently taking her prescription medications as prescriped. Esperanza Singleton RN 2019 Pt. stating has not been taking polyethylene glycol. Shonna Cervantes RN. Problem List As Of Date 08/08/2024 Noted Resolved Other disorders of synovium, tendon, and bursa(*01/08/2005 05/30/2015 Acute left-sided low back pain without sciatica*02/08/2005 Ganglion of joint [M67.40] 07/16/2005 09/19/2016 Abdominal pain, right upper quadrant [R10.11] 02/01/2012 Unspecified constipation [K59.00] 02/01/2012 Diverticulosis of colon (without mention of hem* 05/30/2015 Hemorrhage of rectum and anus [K62.5] 09/19/2016 Cough [R05.9] 07/23/2008 02/01/2012 Rectocele [N81.6] 01/05/2011 Acute tracheobronchitis [J20.9] 03/07/2011 02/01/2012 Carpal tunnel syndrome [G56.00] 11/19/2011 09/19/2016 Osteopenia [M85.80] 10/28/2012 Adjustment disorder with anxiety [F43.22] 05/12/2013 Dyslipidemia [E78.5] 03/18/2015 Osteoarthritis of spine with radiculopathy, cer*05/30/2015 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 Psoriasis [L40.9] 05/23/2016 Dry cough [R05.8] 05/23/2016 Skin tear of lower leg without complication [S8*05/23/2016 09/19/2016 Abdominal pain [R10.9] 11/01/2016 05/20/2017 Postmenopausal atrophic vaginitis [N95.2] 11/01/2016 Cystitis [N30.90] 11/01/2016 05/20/2017 Primary osteoarthritis of left knee [M17.12] 05/10/2017 06/05/2017 Irritable bowel syndrome [K58.9] 05/20/2017 Urge incontinence [N39.41] 05/20/2017 Chronic pain of right knee [M25.561, G89.29] 05/20/2017 07/04/2017 OA (osteoarthritis) of knee [M17.9] 06/04/2017 06/05/2017 Status post total knee replacement using cement*07/04/2017 Status post total right knee replacement [Z96.6*09/07/2017 Adjustment insomnia [F51.02] 12/30/2017 Situational depression [F43.21] 12/30/2017 Hypertension, essential [I10] 12/30/2017 Hyperlipidemia, mixed [E78.2] 12/30/2017 Left lower quadrant pain [R10.32] (more content not included)... Normal [facility] Bacteria Ur Culton 5 Bacteria identified Cx Nom (U) ORGANISM ID: 1 10,000 -<50,000 CFU/ml Normal urogenital ji Normal [facility] Comment on above: Performed By: #### 6 30-4 #### [facility] CLIA [id number] [address] [place] [address] [place] [facility] 08-04-2024 CNOV Office Visit (UCWSTR ) -- ANAYA WILSON ([id number]) 1940 F Date Time Provider Department 08/04/24 4:15 PM KYM LEWIS [facility] During your visit today, we recorded the following information about you: Temperature Pulse Respiration Blood pressure 97.7 degrees 64/minute 16/minute 102/62 Weight 55.6 kg Kym Lewis PA 08/04/2024 4:02 PM Signed [facility] Subjective Anaay Wilson is a 84 year old female. Patient presents with: Urinary Frequency: x 1 day HPI Urinary Frequency: - Onset: Later yesterday. - Denies dysuria, hematuria, fever, emesis, back pain, or abdominal pain. - Reports pressure in the lower abdomen, described as feeling the need to urinate again. Review of Systems Genitourinary: (+) urinary frequency, (+) suprapubic pressure, (-) dysuria, (-) hematuria Objective BP 102/62 Pulse 64 Temp 36.5 ?C (97.7 ?F) Resp 16 Wt 55.6 kg (122 lb 9.2 oz) SpO2 97% BMI 25.62 kg/m? Physical Exam Vitals reviewed. Constitutional: General: She is not in acute distress. Appearance: Normal appearance. She is not toxic-appearing. HENT: Mouth/Throat: Mouth: Mucous membranes are moist. Cardiovascular: Rate and Rhythm: Normal rate and regular rhythm. Pulmonary: Effort: Pulmonary effort is normal. Breath sounds: Normal breath sounds. Abdominal: General: Abdomen is flat. Palpations: Abdomen is soft. Tenderness: There is no abdominal tenderness. There is no right CVA tenderness, left CVA tenderness, guarding or rebound. Skin: General: Skin is warm and dry. Neurological: Mental Status: She is alert. General: No acute distress. Abd: No tenderness to palpation. Resp: Lungs clear to auscultation bilaterally. {1. Urinary frequency (R35.0) - Onset of urinary frequency began yesterday; no dysuria, hematuria, fever, emesis, or abdominal/flank pain reported. - Abdominal exam reveals no tenderness, only pressure sensation. - Urinalysis shows no hematuria or pyuria; urine appears clear. - Sent urine sample for culture to rule out bacterial infection. - Advised to increase fluid intake. - Will withhold antibiotics pending urine culture results. - Will follow up with patient in the next 1-2 days with culture results. Recording using [employer] software for draft documentation of the visit was discussed with the patient/authorized dental sales representative; all questions welcomed and answered. Patient/authorized dental sales representative agreed to proceed History and Record Review External record(s) reviewed: prior outpatient record. Differential Diagnoses - urinary frequency is more likely for the following reason(s): suggested by HANDP - uti is less likely for the following reason(s): laboratory studies not suggestive Disposition The patient was discharged. Procedures Allergies As of Date: 08/04/2024 Noted Allergy Reaction CAFFEINE 12/01/2004 CODEINE 12/01/2004 DARVOCET A500 (PROPOXYPHENE N-REINALDO*12/01/2004 11 - Vomiting DEMEROL (MEPERIDINE (PF)) 07/07/2015 11 - Vomiting ENTEX (PHENYLEPHRINE-GUAIFENESIN ) 12/01/2004 EPHEDRINE 12/01/2004 14 - Other: See Comments Comments: Heart palpitations GRISEOFULVIN 12/01/2004 MILK CONTAINING PRODUCTS (DAIRY) 11/15/2016 5 - Intolerance Comments: Nasal stuffiness TRAMADOL 12/21/2011 14 - Other: See Comments Comments: Nausea, vomiting, dry heaves after carpal tunnel surgery VICODIN (HYDROCODONE-ACETAMINOPHE* 07/07/2015 9 - Itching ZOLOFT (SERTRALINE HCL) 09/25/2006 1 - Mental Status Change Comments: Increased anxiety and feeling of depression. Started in 2005, not noted then Date Reviewed: 08/04/2024 Reviewed by: Johanna Kilpatrick MA - Fully Assessed Reason for Visit: Urinary Frequency [1086] Cmt: x 1 day Primary Visit Diagnosis:Urinary frequency [R35.0] Order(s):UA DIP, URINE (POC) [[id number]] Order #: [id number]. #:[id number] 7-LAB BACTERIAL CULTURE, URINE [SQURCUL] Order #: [id number]. #:[id number] Prescriptions as of 08/04/2024 - losartan (COZAAR) 25 mg tablet Take 1 tablet by mouth once daily. - FLUoxetine (PROZAC) 10 mg capsule Take 1 capsule by mouth once daily. - cyclobenzaprine (FLEXERIL) 5 mg tablet Take 1 tablet by mouth three times a day as needed. - hydrocortisone (ANUSOL-HC) 25 mg suppository 1 Suppository by RECTAL route two times a day as needed (hemorrhoids/rectal pain). - benzonatate (TESSALON PERLE) 100 mg capsule Take 2 capsules by mouth three times a day as needed. - albuterol HFA (PROVENTIL HFA, VENTOLIN HFA) 90 mcg/actuation inhaler Inhale 2 Puffs as instructed every 4 hours as needed for wheezing/shortness of breath. - donepezil (ARICEPT) 10 mg tablet Take 1 tablet by mouth daily at bedtime. - ketoconazole (NIZORAL) 2 % cream Apply to affected area two times a day. - amitriptyline (ELAVIL) 10 mg tablet Take 1 tablet by mouth arturo (more content not included)... Normal [facility] 08-03-2024 [facility] Telephone (ARELY) -- ANAYA WILSON ([id number]) 1940 F Date Time Provider Department 08/03/24 ROGER ROMERO During your visit today, we recorded the following information about you: Payal Godoy RN 08/03/2024 1:[address] Romero reviewed patient's lumbar MRI. Lumbar MRI shows: Scoliosis Spinal stenosis (narrowing of the spinal canal placing pressure on the spinal cord and nerves) at L3-4, L4-5 Dr. Romero recommends a left L4-5 lumbar transforaminal epidural steroid injection. Injection order pended for provider review. Routing to provider. Office to contact patient via telephone once injection order placed. Mary Keith APRN.[facility] 08/03/2024 2:03 PM Signed Injection order signed off Payal Godoy RN 08/03/2024 2:30 PM Signed Informed patient via telephone of Dr. Romero's review and recommendations. Patient verbalized understanding and requested that the office call back and leave same spiel on her voicemail for her spouse to review. Voicemail left per request. Patient to contact office if/when ready to schedule injection procedure. Allergies As of Date: 08/03/2024 Noted Allergy Reaction CAFFEINE 12/01/2004 CODEINE 12/01/2004 DARVOCET A500 (PROPOXYPHENE N-REINALDO*12/01/2004 11 - Vomiting DEMEROL (MEPERIDINE (PF)) 07/07/2015 11 - Vomiting ENTEX (PHENYLEPHRINE-GUAIFENESIN ) 12/01/2004 EPHEDRINE 12/01/2004 14 - Other: See Comments Comments: Heart palpitations GRISEOFULVIN 12/01/2004 MILK CONTAINING PRODUCTS (DAIRY) 11/15/2016 5 - Intolerance Comments: Nasal stuffiness TRAMADOL 12/21/2011 14 - Other: See Comments Comments: Nausea, vomiting, dry heaves after carpal tunnel surgery VICODIN (HYDROCODONE-ACETAMINOPHE* 07/07/2015 9 - Itching ZOLOFT (SERTRALINE HCL) 09/25/2006 1 - Mental Status Change Comments: Increased anxiety and feeling of depression. Started in 2005, not noted then Date Reviewed: 07/23/2024 Reviewed by: Aurora Gray MA - Fully Assessed Reason for Visit: Results [95] Cmt: Lumbar MRI Primary Visit Diagnosis:Spinal stenosis of lumbar region, unspecified whether neurogenic claudication present [M48.061] Other Visit Diagnosis:Degeneration of intervertebral disc of lumbosacral region with discogenic back pain and lower extremity pain [M51.372] Order(s):INJ TRANSFORAMINAL EPID ANES/STER LS SINGL [[id number]] Order #: [id number] Prescriptions as of 08/03/2024 - losartan (COZAAR) 25 mg tablet Take 1 tablet by mouth once daily. - FLUoxetine (PROZAC) 10 mg capsule Take 1 capsule by mouth once daily. - cyclobenzaprine (FLEXERIL) 5 mg tablet Take 1 tablet by mouth three times a day as needed. - hydrocortisone (ANUSOL-HC) 25 mg suppository 1 Suppository by RECTAL route two times a day as needed (hemorrhoids/rectal pain). - benzonatate (TESSALON PERLE) 100 mg capsule Take 2 capsules by mouth three times a day as needed. - albuterol HFA (PROVENTIL HFA, VENTOLIN HFA) 90 mcg/actuation inhaler Inhale 2 Puffs as instructed every 4 hours as needed for wheezing/shortness of breath. - donepezil (ARICEPT) 10 mg tablet Take 1 tablet by mouth daily at bedtime. - ketoconazole (NIZORAL) 2 % cream Apply to affected area two times a day. - amitriptyline (ELAVIL) 10 mg tablet Take 1 tablet by mouth daily at bedtime. - loratadine (CLARITIN) 10 mg tablet Take 1 tablet by mouth once daily. - methotrexate 2.5 mg tablet TAKE 5 TABLET(S) ORAL ONCE A WEEK START 4 TABS ONCE A WEEK FOR 2 WEEKS - famotidine (PEPCID) 10 mg tablet Take 1 tablet by mouth two times a day. - Azelaic Acid (FINACEA) 15 % gel Apply to affected area once daily. - fluorometholone (FML LIQUID FILM) 0.1 % ophthalmic suspension Use 1 Drop in both eyes once daily. - FOLIC ACID ORAL Take by mouth. Meds Comments as of 07/12/2019: 09/07/16: Not taking motrin or naprosyn. MS Does not take Naprosyn or Ibuprofen [facility] -May 27, 2019 Patient currently taking her prescription medications as prescriped. Esperanza Singleton RN 2019 Pt. stating has not been taking polyethylene glycol. Shonna Cervantes RN. Problem List As Of Date 08/03/2024 Noted Resolved Other disorders of synovium, tendon, and bursa(*01/08/2005 05/30/2015 Acute left-sided low back pain without sciatica*02/08/2005 Ganglion of joint [M67.40] 07/16/2005 09/19/2016 Abdominal pain, right upper quadrant [R10.11] 02/01/2012 Unspecified constipation [K59.00] 02/01/2012 Diverticulosis of colon (without mention of hem* 05/30/2015 Hemorrhage of rectum and anus [K62.5] 09/19/2016 Cough [R05.9] 07/23/2008 02/01/2012 Rectocele [N81.6] 01/05/2011 Acute tracheobronchitis [J20.9] 03/07/2011 02/01/2012 Carpal tunnel syndrome [G56.00] 11/19/2011 09/19/2016 Osteopenia [M85.80] 10/28/2012 Adjustment disorder with anxiety [F43.22] 05/12/2013 Dyslipidemia [E78.5] 03/18/2015 Osteoarthritis of spine with radiculopathy, cer*05/30/2015 Polyarticula (more content not included)... Normal [facility] MR Lumbar spine WO contrasto n 07-29-2024 IMPRESSION: 1. Scoliosis and spondylosis. 2. Significant lumbar central canal narrowing at L3-4 and L4-5. 3. Additional foraminal disease detailed level by level. COUNTING REFERENCE: Inferior lumbar disc taken as L5-S1. Structural anomalies: None. Self Propelled Hot Mix Roller Operator: JAIME Transcribe Date/Time: Jul 29 2024 10:31A Dictated by : АННА WOODS MD This examination was interpreted and the report reviewed and electronically signed by: АННА WOODS MD on Jul 29 2024 10:34AM [facility] DIVISION OF RADIOLOGY * * *Final Report* * * DATE OF EXAM: Jul 29 2024 8:45AM [facility] 0303 - MRI LUMBAR SPINE WO IVCON / PROCEDURE REASON: Spinal stenosis of lumbar region, unspecified whether neurogenic claudication pr * * * * Physician Interpretation * * * * COMPARISON: None. HISTORY: Lumbar spinal stenosis. TECHNIQUE: MRI of lumbar spine without contrast. MQ: [id number] RESULT: MRI LUMBAR SPINE: Acute abnormality: None. Mild/moderate dextroscoliosis without vertebral anomalies. Osteopenic patchy marrow signal. Decreased disc height/signal, endplate changes, disc osteophyte, facet and ligamentum flavum hypertrophy indicating spondylosis. Significant stress related changes at left L3-4 pedicle and facet articulation. Microfracture and bone bruise should be considered. No clear fracture identified, however, CT may be of value if there is high clinical concern. 3-1 degenerative anterior listhesis of L2 on L3 and L3 on L4 and retrolisthesis of L4 on L5 vertebral body. Canal and foraminal disease detailed level by level. Normal alignment, vertebral height, soft tissues, central canal, thecal sac, spinal cord signal/caliber & cauda equina. No fracture/dislocation. L1 -- 2: Patent canal and right foramina. Left foramen encroachment. L2 -- 3: Patent canal. Mild right and moderate left foramina narrowing. Mild to moderate left subarticular recess narrowing indenting traversing left L3 nerve. L3 -- 4: Moderate canal and right foramina and severe left foramina narrowing. L4 -- 5: Moderate to significant canal and severe bilateral foramina narrowing. L5 -- S1: Patent canal. Mild to moderate left and severe right foramina narrowing. DIVISION OF RADIOLOGY Provider, [facility] - 07/29/2024 * * *Final Report* * * DATE OF EXAM: Jul 29 2024 8:45AM [facility] 0303 - MRI LUMBAR SPINE WO IVCON / PROCEDURE REASON: Spinal stenosis of lumbar region, unspecified whether neurogenic claudication pr * * * * Physician Interpretation * * * * COMPARISON: None. HISTORY: Lumbar spinal stenosis. TECHNIQUE: MRI of lumbar spine without contrast. MQ: [id number] RESULT: MRI LUMBAR SPINE: Acute abnormality: None. Mild/moderate dextroscoliosis without vertebral anomalies. Osteopenic patchy marrow signal. Decreased disc height/signal, endplate changes, disc osteophyte, facet and ligamentum flavum hypertrophy indicating spondylosis. Significant stress related changes at left L3-4 pedicle and facet articulation. Microfracture and bone bruise should be considered. No clear fracture identified, however, CT may be of value if there is high clinical concern. 3-1 degenerative anterior listhesis of L2 on L3 and L3 on L4 and retrolisthesis of L4 on L5 vertebral body. Canal and foraminal disease detailed level by level. Normal alignment, vertebral height, soft tissues, central canal, thecal sac, spinal cord signal/caliber & cauda equina. No fracture/dislocation. L1 -- 2: Patent canal and right foramina. Left foramen encroachment. L2 -- 3: Patent canal. Mild right and moderate left foramina narrowing. Mild to moderate left subarticular recess narrowing indenting traversing left L3 nerve. L3 -- 4: Moderate canal and right foramina and severe left foramina narrowing. L4 -- 5: Moderate to significant canal and severe bilateral foramina narrowing. L5 -- S1: Patent canal. Mild to moderate left and severe right foramina narrowing. IMPRESSION IMPRESSION: 1. Scoliosis and spondylosis. 2. Significant lumbar central canal narrowing at L3-4 and L4-5. 3. Additional foraminal disease detailed level by level. COUNTING REFERENCE: Inferior lumbar disc taken as L5-S1. Structural anomalies: None. Self Propelled Hot Mix Roller Operator: JAIME Transcribe Date/Time: Jul 29 2024 10:31A Dictated by : АННА WOODS MD This examination was interpreted and the report reviewed and electronically signed by: АННА WOODS MD on Jul 29 2024 10:34AM EST [facility] Radiology Study observation (narrative) [facility] MR Lumbar spine WO contrastO rdered By: [facility] Provider on 07-29-2024 [facility] MRI LUMBAR SPINE WO IVCONon 07-29-2024 MRI LUMBAR SPINE WO IVCON * * *Final Report* * * DATE OF EXAM: Jul 29 2024 8:45AM [facility] 0303 - MRI LUMBAR SPINE WO IVCON / PROCEDURE REASON: Spinal stenosis of lumbar region, unspecified whether neurogenic claudication pr * * * * Physician Interpretation * * * * COMPARISON: None. HISTORY: Lumbar spinal stenosis. TECHNIQUE: MRI of lumbar spine without contrast. MQ: [id number] RESULT: MRI LUMBAR SPINE: Acute abnormality: None. Mild/moderate dextroscoliosis without vertebral anomalies. Osteopenic patchy marrow signal. Decreased disc height/signal, endplate changes, disc osteophyte, facet and ligamentum flavum hypertrophy indicating spondylosis. Significant stress related changes at left L3-4 pedicle and facet articulation. Microfracture and bone bruise should be considered. No clear fracture identified, however, CT may be of value if there is high clinical concern. 3-1 degenerative anterior listhesis of L2 on L3 and L3 on L4 and retrolisthesis of L4 on L5 vertebral body. Canal and foraminal disease detailed level by level. Normal alignment, vertebral height, soft tissues, central canal, thecal sac, spinal cord signal/caliber and cauda equina. No fracture/dislocation. L1 -- 2: Patent canal and right foramina. Left foramen encroachment. L2 -- 3: Patent canal. Mild right and moderate left foramina narrowing. Mild to moderate left subarticular recess narrowing indenting traversing left L3 nerve. L3 -- 4: Moderate canal and right foramina and severe left foramina narrowing. L4 -- 5: Moderate to significant canal and severe bilateral foramina narrowing. L5 -- S1: Patent canal. Mild to moderate left and severe right foramina narrowing. IMPRESSION: 1. Scoliosis and spondylosis. 2. Significant lumbar central canal narrowing at L3-4 and L4-5. 3. Additional foraminal disease detailed level by level. COUNTING REFERENCE: Inferior lumbar disc taken as L5-S1. Structural anomalies: None. Self Propelled Hot Mix Roller Operator: JAIME Transcribe Date/Time: Jul 29 2024 10:31A Dictated by : АННА WOODS MD This examination was interpreted and the report reviewed and electronically signed by: АННА WOODS MD on Jul 29 2024 10:34AM EST [id number] Normal [facility] CNOVon 07-23-2024 CNOV Office Visit (PNMDNA ) -- ANAYA WILSON ([id number]) 1940 F Date Time Provider Department 07/23/24 2:15 PM MARY KEITH PNVABERNIE During your visit today, we recorded the following information about you: Pulse Weight 52/minute 55.4 kg Mary Keith, P[employer] SAILOR.SHIP KEEPER 07/23/2024 3:13 PM Signed [facility] Date: July 23, 2024 - 2:20 PM Anaya Wilson is seen in consultation requested by Dr. Angeline Monterroso for an opinion regarding chronic lower back pain. My final recommendations will be communicated back to the requesting physician by way of shared medical record or via US mail. Chief Complaint: back Subjective Anaya Montielbrandeeephraim, is a 84 year old female who presents with lower back pain. The pain started winter . The pain onset was gradual. The patient states that the current pain is intermittent. Her pain is located in the bilateral lumbar region and radiates to left lower extremity along lateral aspect to the level of ankle. ////// The pain is described as unable to describe pain. The pain intensity is currently rated 1 on a scale of 10. The pain is exacerbated by continuous activity. The pain is relieved by heat. Symptoms interfere with physical activity and lifting. PAIN EVALUATION No data found in the last 1 encounters. Prior pain treatment has included: Medication(s): She has tried the following for relief of her symptoms: Muscle relaxant: Flexeril Physical Therapy: She has had physical therapy for her current symptoms. She completed 1 session on 04/06/24 at [facility] in [place]. Spinal Injections: She has not gotten prior spinal injections. Other: None ALLERGIES Allergen Reactions Caffeine Codeine Darvocet A500 [Prop* Vomiting Demerol [Meperidine* Vomiting Entex [Phenylephrin* Ephedrine Other: See Comments Heart palpitations Griseofulvin Milk Containing Pro* Intolerance Nasal stuffiness Tramadol Other: See Comments Nausea, vomiting, dry heaves after carpal tunnel surgery Vicodin [Hydrocodon* Itching Zoloft [Sertraline * Mental Status Change Increased anxiety and feeling of depression. Started in 2005, not noted then Current Medications: Pain medications reviewed and reconciled in the medication list: Yes. Current Outpatient Medications Medication Sig losartan (COZAAR) 25 mg tablet Take 1 tablet by mouth once daily. cyclobenzaprine (FLEXERIL) 5 mg tablet Take 1 tablet by mouth three times a day as needed. hydrocortisone (ANUSOL-HC) 25 mg suppository 1 Suppository by RECTAL route two times a day as needed (hemorrhoids/rectal pain). benzonatate (TESSALON PERLE) 100 mg capsule Take 2 capsules by mouth three times a day as needed. donepezil (ARICEPT) 10 mg tablet Take 1 tablet by mouth daily at bedtime. ketoconazole (NIZORAL) 2 % cream Apply to affected area two times a day. amitriptyline (ELAVIL) 10 mg tablet Take 1 tablet by mouth daily at bedtime. loratadine (CLARITIN) 10 mg tablet Take 1 tablet by mouth once daily. methotrexate 2.5 mg tablet TAKE 5 TABLET(S) ORAL ONCE A WEEK START 4 TABS ONCE A WEEK FOR 2 WEEKS fluorometholone (FML LIQUID FILM) 0.1 % ophthalmic suspension Use 1 Drop in both eyes once daily. FOLIC ACID ORAL Take by mouth. FLUoxetine (PROZAC) 10 mg capsule Take 1 capsule by mouth once daily. albuterol HFA (PROVENTIL HFA, VENTOLIN HFA) 90 mcg/actuation inhaler Inhale 2 Puffs as instructed every 4 hours as needed for wheezing/shortness of breath. (Patient not taking: Reported on 07/23/2024) famotidine (PEPCID) 10 mg tablet Take 1 tablet by mouth two times a day. (Patient not taking: Reported on 07/23/2024) Azelaic Acid (FINACEA) 15 % gel Apply to affected area once daily. No current facility-administered medications for this visit. 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 Dementia (HCC) Diverticulosis of colon (without mention of hemorrhage) Dry cough 05/23/2016 Ganglion of joint 07/16/2005 Generalized osteoarthrosis, unspecified site Hemorrhage of gastrointestinal tract, unspecified Hemorrhage of rectum and anus Hypertension Infection of left eye Irritable bowel syndrome Osteomalacia, unspecified Other and unspecified hyperlipidemia Pneumonia, organism unspecified(486) PONV (postoperative nausea and vomiting) Psoriatic arthritis (HCC) Rectocele 01/05/2011 Skin tear of lower leg without complication 05/23/2016 Sprain of unspecified site of sacroiliac region Unspecified constipation Urge incontinence mild PAST SURGICAL HISTORY Procedure Laterality Date ARTHRP KNE CONDYLEANDPLATU MEDIALANDLAT COMPARTMENTS Right 06/03/2017 Knee r (more content not included)... Normal [facility] CNOVon 06-30-2024 CNOV Office Visit (UCWSTR ) -- ANAYA WILSON ([id number]) 1940 F Date Time Provider Department 06/30/24 4:00 PM LANI ARDNT [facility] During your visit today, we recorded the following information about you: Temperature Pulse Respiration Blood pressure 98.9 degrees 66/minute 16/minute 112/68 Weight 55.5 kg Lani Arndt PA-C 06/30/2024 4:47 PM Signed This note was created using Task Messenger. Subjective Anaya Wilson is a 84 year old female. Patient is an 84-year-old female who complains of pain and swelling to the lateral aspect of her right ankle secondary to a twisting injury that she sustained yesterday. Patient reports that she was mowing her yard and stepped into a hole while walking backwards. Patient does not recall a specific mechanism of her injury but states that it is highly likely that she rolled her right ankle immediately. Patient has been bearing weight and ambulating although it is painful to do so. Patient states that the medial aspect of her right ankle is nontender. Patient denies paresthesia or paralysis to her right foot and toes. Patient has no history of fracture or surgery to her right foot and ankle. Patient denies pain or injury to her right hip and knee. Review of Systems Musculoskeletal: Pain and Swelling Right Ankle All other systems reviewed and are negative. Objective BP 112/68 Pulse 66 Temp 37.2 ?C (98.9 ?F) Resp 16 Wt 55.5 kg (122 lb 5.7 oz) SpO2 96% BMI 25.57 kg/m? Physical Exam Vitals and nursing note reviewed. Constitutional: Appearance: Normal appearance. She is normal weight. HENT: Head: Normocephalic and atraumatic. Nose: Nose normal. Mouth/Throat: Mouth: Mucous membranes are moist. Pharynx: Oropharynx is clear. Eyes: Extraocular Movements: Extraocular movements intact. Conjunctiva/sclera: Conjunctivae normal. Pupils: Pupils are equal, round, and reactive to light. Cardiovascular: Rate and Rhythm: Normal rate. Pulses: Normal pulses. Pulmonary: Effort: Pulmonary effort is normal. Breath sounds: Normal breath sounds. Musculoskeletal: General: Swelling, tenderness and signs of injury present. No deformity. Cervical back: Normal range of motion and neck supple. Right lower leg: No edema. Comments: Moderate soft tissue edema is noted to the lateral right ankle. There is mild tenderness with palpation. No crepitus or deformity is noted. Overlying skin is clear without erythema or ecchymosis. MSP to the right foot and toes is fully intact the patient demonstrates full range of motion of same. Patient demonstrates full range of motion in dorsal and plantarflexion although it is painful to do so. Right Achilles tendon is smooth in contour and no disruption is noted. Skin: General: Skin is warm and dry. Capillary Refill: Capillary refill takes less than 2 seconds. Findings: No bruising or erythema. Neurological: General: No focal deficit present. Mental Status: She is alert and oriented to person, place, and time. Gait: Gait abnormal. Psychiatric: Mood and Affect: Mood normal. Behavior: Behavior normal. Thought Content: Thought content normal. Judgment: Judgment normal. Assessment and Plan Physical exam findings as noted above. X-ray right ankle is negative for acute findings as reported by the radiologist. Supportive care instructions were discussed and the patient declines an Aircast ankle stirrup splint at this time. Patient was provided with contact information for Dr. Margaret Bacon and strongly encouraged to contact his office to schedule an appointment for further evaluation and management. Patient and her verbalize excellent understanding of all instructions. CLINICAL IMPRESSION: Sprain/Strain Right Ankle ASSESSMENT/PLAN: 1. Sprain of ligament of right ankle, initial encounter - ICD9: 845.00, ICD10: S93.401A - XR ANKLE GENERAL 3V AP/LAT/OBL RIGHT MDM Amount and/or Complexity of Data Reviewed Tests in the radiology section of CPT?: reviewed and ordered Risk of Complications, Morbidity, and/or Mortality Presenting problems: low Diagnostic procedures: low Management options: low ANDREW Deshpande Mark, PA-C 06/30/2024 4:[address] MARGARET BACON [phone] Allergies As of Date: 06/30/2024 Noted Allergy Reaction CAFFEINE 12/01/2004 CODEINE 12/01/2004 DARVOCET A500 (PROPOXYPHENE N-REINALDO*12/01/2004 11 - Vomiting DEMEROL (MEPERIDINE (PF)) 07/07/2015 11 - Vomiting ENTEX (PHENYLEPHRINE-GUAIFENESIN ) 12/01/2004 EPHEDRINE 12/01/2004 14 - Other: See Comments Comments: Heart palpitations GRISEOFULVIN 12/01/2004 MILK CONTAINING PRODUCTS (DAIRY) 11/15/2016 5 - Intolerance Comments: Nasal stuffiness TRAMADOL 12/21/2011 14 - Other: See Comments Comments: Nausea, vomiting, dry heaves after carpal tunnel surgery VICODIN (HYDROCODONE-ACETAMINOPHE* 07/07/19 (more content not included)... Normal [facility] XR ANKLE 3V AP/LAT/OBL RTon 06-30-2024 XR ANKLE 3V AP/LAT/OBL RT * * *Final Report* * * DATE OF EXAM: Jun 30 2024 4:14PM [facility] [id number] - XR ANKLE 3V AP/LAT/OBL RT / PROCEDURE REASON: Sprain of ligament of right ankle, initial encounter * * * * Physician Interpretation * * * * TITLE: XR ANKLE 3V AP/LAT/OBL RT CLINICAL INDICATION: Twisting injury TECHNIQUE: 3 view radiographic study of the right ankle COMPARISON: Radiograph dated 11/25/2023 FINDINGS: Lateral soft tissue swelling. No acute fracture or dislocation identified. Talar dome and ankle mortise appear intact. IMPRESSION: Lateral soft tissue swelling. No radiographic evidence of acute osseous injury. Self Propelled Hot Mix Roller Operator: JAIME Transcribe Date/Time: Jun 30 2024 4:14P Dictated by : RAUL MUNSON MD This examination was interpreted and the report reviewed and electronically signed by: RAUL MUNSON MD on Jun 30 2024 4:15PM EST [id number] Normal [facility] XR Ankle - right AP and Late ral and obliqueon 06-30-2024 Radiology Study observation (narrative) [facility] IMPRESSION: Lateral soft tissue swelling. No radiographic evidence of acute osseous injury. Self Propelled Hot Mix Roller Operator: PSCB Transcribe Date/Time: Jun 30 2024 4:14P Dictated by : RAUL MUNSON MD This examination was interpreted and the report reviewed and electronically signed by: RAUL MUNSON MD on Jun 30 2024 4:15PM EST DIVISION OF RADIOLOGY * * *Final Report* * * DATE OF EXAM: Jun 30 2024 4:14PM [facility] 5297 - XR ANKLE 3V AP/LAT/OBL RT / PROCEDURE REASON: Sprain of ligament of right ankle, initial encounter * * * * Physician Interpretation * * * * TITLE: XR ANKLE 3V AP/LAT/OBL RT CLINICAL INDICATION: Twisting injury TECHNIQUE: 3 view radiographic study of the right ankle COMPARISON: Radiograph dated 11/25/2023 FINDINGS: Lateral soft tissue swelling. No acute fracture or dislocation identified. Talar dome and ankle mortise appear intact. DIVISION OF RADIOLOGY [facility] * * *Final Report* * * DATE OF EXAM: Jun 30 2024 4:14PM [facility] 5297 - XR ANKLE 3V AP/LAT/OBL RT / PROCEDURE REASON: Sprain of ligament of right ankle, initial encounter * * * * Physician Interpretation * * * * TITLE: XR ANKLE 3V AP/LAT/OBL RT CLINICAL INDICATION: Twisting injury TECHNIQUE: 3 view radiographic study of the right ankle COMPARISON: Radiograph dated 11/25/2023 FINDINGS: Lateral soft tissue swelling. No acute fracture or dislocation identified. Talar dome and ankle mortise appear intact. IMPRESSION IMPRESSION: Lateral soft tissue swelling. No radiographic evidence of acute osseous injury. Self Propelled Hot Mix Roller Operator: PSCB Transcribe Date/Time: Jun 30 2024 4:14P Dictated by : RAUL MUNSON MD This examination was interpreted and the report reviewed and electronically signed by: RAUL MUNSON MD on Jun 30 2024 4:15PM EST [facility] XR Ankle - right AP and Late ral and obliqueOrdered By: [facility]cf Provider on 06-30-2024 [facility] CBC W/Diff, Automatedon 06-03 Absolute Lymph 2.05 X10 3/uL Normal 0.83-4.51 [facility] Comment on above: Performed By: #### L 100.0100, L500.4050 #### [facility] [address] [place], [place], [id number] Absolute Neut 3.0 X10 3/uL Normal 2.0-7.7 [facility] Comment on above: Performed By: #### L 100.0100, L500.4050 #### [facility] [address] [place], [address] Basophils/100 WBC (Bld) 0.7 % Normal 0-1 [facility] Comment on above: Performed By: #### L 100.0100, L500.4050 #### [facility] [address] [place], [address] Eosinophils/100 WBC (Bld) 2.8 % Normal 0-5 [facility] Comment on above: Performed By: #### L 100.0100, L500.4050 #### [facility] [address] [place], [address] Erythrocyte distribution width (RBC) [Ratio] 15.2 % High 11.6-14.6 [facility] Comment on above: Performed By: #### L 100.0100, L500.4050 #### [facility] [address] [place], [address] Hematocrit (Bld) [Volume fraction] 38.1 % Normal 37-47 [facility] Comment on above: Performed By: #### L 100.0100, L500.4050 #### [facility] [address] [place], [address] Hemoglobin (Bld) [Mass/Vol] 12.6 g/dL Normal 12.0-15.0 [facility] Comment on above: Performed By: #### L 100.0100, L500.4050 #### [facility] [address] [place], [address] IG% 1.000 High 0.0-0.9 [facility] Comment on above: Result Comment: IG% - Immature Granulocytes (promyelocytes, myelocytes and metamyelocytes) > 1% indicates that a LEFT SHIFT is Present. Performed By: #### L 100.0100, L500.4050 #### [facility] [address] [place], [address] Lymphocytes/100 WBC (Bld) 34.0 % Normal 19-41 [facility] Comment on above: Performed By: #### L 100.0100, L500.4050 #### [facility] [address] [place], [address] MCH (RBC) [Entitic mass] 31.5 pg Normal 27.0-32.0 [facility] Comment on above: Performed By: #### L 100.0100, L500.4050 #### [facility] [address] [place], [address] MCHC (RBC) [Mass/Vol] 33.1 g/dL Normal 32-36 [facility] Comment on above: Performed By: #### L 100.0100, L500.4050 #### [facility] [address] [place], [address] MCV (RBC) [Entitic vol] 95.3 fL Normal 81-99 [facility] Comment on above: Performed By: #### L 100.0100, L500.4050 #### [facility] [address] [place], [address] Monocytes/100 WBC (Bld) 11.6 % High 0-10 [facility] Comment on above: Performed By: #### L 100.0100, L500.4050 #### [facility] [address] [place], [address] Neutrophils/100 WBC (Bld) 49.9 % Normal 47-70 [facility] Comment on above: Performed By: #### L 100.0100, L500.4050 #### [facility] [address] [place], [address] Nucleated RBC (Bld) [#/Vol] 0 10*3/uL Normal 0-5 [facility] Comment on above: Performed By: #### L 100.0100, L500.4050 #### [facility] [address] [place], [address] Platelet mean volume (Bld) [Entitic vol] 11.3 fL Normal 6.2-12.0 [facility] Comment on above: Performed By: #### L 100.0100, L500.4050 #### [facility] [address] [place], [address] Platelets (Bld) [#/Vol] 251 10*3/uL Normal 150-450 [facility] Comment on above: Performed By: #### L 100.0100, L500.4050 #### [facility] [address] [place], [address] RBC (Bld) [#/Vol] 4.00 10*6/uL Low 4.2-5.4 [facility] Comment on above: Performed By: #### L 100.0100, L500.4050 #### [facility] [address] [place], [address] RDW SD 52.2 fl High 35.1-43.9 [facility] Comment on above: Performed By: #### L 100.0100, L500.4050 #### [facility] [address] [place], [address] WBC (Bld) [#/Vol] 6.0 10*3/uL Normal 4.4-11.0 [facility] Comment on above: Performed By: #### L 100.0100, L500.4050 #### [facility] [address] [place], [address] Comprehensive Metabolic Prof [facility] 06-26-2024 Albumin [Mass/Vol] 3.1 g/dL Low 3.4-4.8 [facility] Comment on above: Performed By: #### L 100.0100, L500.4050 #### [facility] [address] [place], [address] Albumin/Globulin [Mass ratio] 1.0 {ratio} Normal 0.9-2.4 [facility] Comment on above: Performed By: #### L 100.0100, L500.4050 #### [facility] [address] [place], [address] ALK PHOS 119 U/L High 35-104 [facility] Comment on above: Performed By: #### L 100.0100, L500.4050 #### [facility] [address] [place], [address] ALT [Catalytic activity/Vol] 28 U/L Normal <=34 [facility] Comment on above: Performed By: #### L 100.0100, L500.4050 #### [facility] [address] [place], [address] AST [Catalytic activity/Vol] 32 U/L Normal <=31 [facility] Comment on above: Performed By: #### L 100.0100, L500.4050 #### [facility] [address] [place], [address] Bilirubin [Mass/Vol] 0.35 mg/dL Normal 0.00-1.30 [facility] Comment on above: Performed By: #### L 100.0100, L500.4050 #### [facility] [address] [place], [address] BUN/CRE 19.6 RATIO Normal 10-20 [facility] Comment on above: Performed By: #### L 100.0100, L500.4050 #### [facility] [address] [place], [address] Calcium [Mass/Vol] 9.1 mg/dL Normal 7.6-11.0 [facility] Comment on above: Performed By: #### L 100.0100, L500.4050 #### [facility] [address] [place], [address] Chloride [Moles/Vol] 102 mmol/L Normal 98-108 [facility] Comment on above: Performed By: #### L 100.0100, L500.4050 #### [facility] [address] [place], [address] CO2 [Moles/Vol] 25.4 mmol/L Normal 21.0-32.0 [facility] Comment on above: Performed By: #### L 100.0100, L500.4050 #### [facility] [address] [place], [address] Creatinine [Mass/Vol] 0.65 mg/dL Low 0.70-1.20 [facility] Comment on above: Performed By: #### L 100.0100, L500.4050 #### [facility] [address] [place], [address] GAP 12 Normal 5-15 [facility] Comment on above: Performed By: #### L 100.0100, L500.4050 #### [facility] [address] [place], [address] GFR/1.73 sq M.predicted among non-blacks MDRD (S/P/Bld) [Vol rate/Area] 87 mL/min/{1.73_m2} Normal >60 [facility] Comment on above: Result Comment: mL/m in/1.73m2 CKD-EPI Creatinine Equation (2020) Performed By: #### L 100.0100, L500.4050 #### [facility] [address] [place], [address] Globulin (S) [Mass/Vol] 3.2 g/dL Normal 2.2-4.2 [facility] Comment on above: Performed By: #### L 100.0100, L500.4050 #### [facility] [address] [place], [address] Glucose [Mass/Vol] 92 mg/dL Normal 70-99 [facility] Comment on above: Performed By: #### L 100.0100, L500.4050 #### [facility] [address] [place], [address] Potassium [Moles/Vol] 4.7 mmol/L Normal 3.3-5.1 [facility] Comment on above: Performed By: #### L 100.0100, L500.4050 #### [facility] [address] [place], [address] Sodium [Moles/Vol] 139 mmol/L Normal 133-145 [facility] Comment on above: Performed By: #### L 100.0100, L500.4050 #### [facility] [address] [place], [address] T PROT 6.3 g/dL Normal 5.9-8.4 [facility] Comment on above: Performed By: #### L 100.0100, L500.4050 #### [facility] [address] [place], [address] Urea nitrogen [Mass/Vol] 13 mg/dL Normal 4-19 [facility] Comment on above: Performed By: #### L 100.0100, L500.4050 #### [facility] [address] [place], [address] H pylori Ag Stl Ql IAon 06-02 H. pylori Ag IA Ql (Stl) H.PYLORI EIA RESULT: Negative for Helicobacter pylori antigen by EIA Normal [facility] Comment on above: Performed By: #### 6 30-4 #### [facility] CLIA [id number] [address] [place] [address] [place] PANC ELASTASE, FECALon 06-15 ELASTASE INTERPRETATION Normal Normal Normal [facility] Comment on above: Order Comment: Speci men Type: STOOL SPECIMENOrdering Facility: [facility] Address: [address] [place] [address] Performed By: #### 6 30-4 #### [facility] CLIA [id number] [address] [place] [address] [place] ELASTASE-1 CONCENTRATION >800 Normal >=200 [facility] Comment on above: Order Comment: Speci men Type: STOOL SPECIMENOrdering Facility: [facility] Address: [address] [place] [address] Result Comment: Inte rpretation: <100 ug/g: Severe Exocrine Pancreatic Insufficiency 100-199 ug/g: Mild to Moderate Exocrine Pancreatic Insufficiency >=200 ug/g: Normal Performed By: #### 6 30-4 #### [facility] CLIA [id number] [address] [place] [address] [place] CNOVon 06-08-2024 [facility] AANYA WILSON ([id number]) 1940 F Date Time Provider Department 06/08/24 12:00 PM EDENILSON NICHOLSON [facility] During your visit today, we recorded the following information about you: Temperature Pulse Respiration Blood pressure 97 degrees 60/minute 16/minute 120/80 Weight 54 kg Edenilson Nicholson, 06/10/2024 9:15 PM Signed CC: Anaya Wilson is a 84 year old female who presents to the office for follow up HPI: She is present with her in the office today Was seen in the ER at [facility] on 03/23 (2 days ago) for left side pain-was dx with muscle strain and given a dx of muscle strain-Flexeril has been helpful. Had been shoveling snow a couple days prior. Did take Flexeril last evening as well as Tylenol, this has been helpful. Interested in doing PT. Left leg pain, worse after walking or standing in a store, comes and goes, no falls. Started in Mar as above and still occurring intermittently but does admit that she tends to overdue things and not know when to stop to take a break. Psoriatic arthritis, recently restarted her methotrexate due to her arthritis pain. The abdominal symptoms weren't improved when she trialed off the methotrexate. Does feel the abdominal pain symptoms have improved since eating more yogurt and staying away from sugars as much as able Still continues to have intermittent abdominal discomfort and sometimes loose stools and sometimes not. No blood in stool. Patient and haven't been able to figure out any specific food triggers. Memory, dementia, was previously taking aricept 5 mg a day which was started spring 2023. Tolerating medication well with SE. At previous OFFICE VISIT her dose was increased to 10 mg a day which she is tolerating well Mood, stable, taking the Prozac 10 mg, no concerns. 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 Dementia (HCC) Diverticulosis of colon (without mention of hemorrhage) Dry cough 05/23/2016 Ganglion of joint 07/16/2005 Generalized osteoarthrosis, unspecified site Hemorrhage of gastrointestinal tract, unspecified Hemorrhage of rectum and anus Hypertension Infection of left eye Irritable bowel syndrome Osteomalacia, unspecified Other and unspecified hyperlipidemia Pneumonia, organism unspecified(486) PONV (postoperative nausea and vomiting) Psoriatic arthritis (HCC) Rectocele 01/05/2011 Skin tear of lower leg without complication 05/23/2016 Sprain of unspecified site of sacroiliac region Unspecified constipation Urge incontinence mild PAST SURGICAL HISTORY Procedure Laterality Date ARTHRP KNE CONDYLEANDPLATU MEDIALANDLAT COMPARTMENTS Right 06/03/2017 Knee replacement, total COLONOSCOPY 05/10/2022 rectal mass COLONOSCOPY FLX DX W/COLLJ SPEC WHEN PFRMD 04/20/2002 Colonoscopy COLONOSCOPY FLX DX W/COLLJ SPEC WHEN PFRMD 07/25/2011 Colonoscopy EYE SURGERY HX JOINT REPLACEMENT HX NEUROPLASTY AND/TRANSPOS MEDIAN NRV CARPAL TUNNE 1979 Carpal tunnel decomp b/l hands NEUROPLASTY AND/TRANSPOS MEDIAN NRV CARPAL TUNNE 12/18/2011 RIGHT PAST SURGICAL HISTORY OF Left laser eye surgery for glaucoma SIGMOIDOSCOPY FLX DX W/COLLJ SPEC BR/WA IF PFRMD 06/23/2007 TOTAL ABDOMINAL HYSTERECT W/WO RMVL TUBE OVARY 1988 RUBI/BSO for fibroids and bleeding TOTAL KNEE REPLACEMENT Left 03/28/2020 VAGINAL HYSTERECTOMY Current Outpatient Medications Medication Sig losartan (COZAAR) 25 mg tablet Take 1 tablet by mouth once daily. FLUoxetine (PROZAC) 10 mg capsule Take 1 capsule by mouth once daily. cyclobenzaprine (FLEXERIL) 5 mg tablet Take 1 tablet by mouth three times a day as needed. hydrocortisone (ANUSOL-HC) 25 mg suppository 1 Suppository by RECTAL route two times a day as needed (hemorrhoids/rectal pain). benzonatate (TESSALON PERLE) 100 mg capsule Take 2 capsules by mouth three times a day as needed. albuterol HFA (PROVENTIL HFA, VENTOLIN HFA) 90 mcg/actuation inhaler Inhale 2 Puffs as instructed every 4 hours as needed for wheezing/shortness of breath. donepezil (ARICEPT) 10 mg tablet Take 1 tablet by mouth daily at bedtime. ketoconazole (NIZORAL) 2 % cream Apply to affected area two times a day. amitriptyline (ELAVIL) 10 mg tablet Take 1 tablet by mouth daily at bedtime. loratadine (CLARITIN) 10 mg tablet Take 1 tablet by mouth once daily. methotrexate 2.5 mg tablet TAKE 5 TABLET(S) ORAL ONCE A WEEK START 4 TABS ONCE A WEEK FOR 2 WEEKS famotidine (PEPCID) 10 mg tablet Take 1 tablet by mouth two times a day. Azelaic Acid (FINAC (more content not included)... Normal [facility] CNOVon 06-02-2024 CNOV Office Visit ([facility] ) -- ANAYA WILSON ([id number]) 1940 F Date Time Provider Department 06/02/24 11:00 AM CORY, ANGELINE OWEN During your visit today, we recorded the following information about you: Temperature Pulse Blood pressure Weight 97.3 degrees 51/minute 120/72 54.1 kg Angeline Monterroso APRN.SHIP KEEPER 06/03/2024 3:11 PM Signed 06/03/2024 The patient consented to the use of [employer] software for draft documentation of the visit consistent with [facility]?s Notice of Privacy Practices. HPI: Anaya is an 84-year-old female presenting for follow-up after an ED visit for nausea and emesis, with additional complaints of abdominal pain, left leg pain, and left lower back pain. Nausea and Emesis: - ED visit approximately 2 weeks ago for nausea and emesis. - Symptoms lasted about a day; received IV antiemetics in the ED with resolution of symptoms. - No diarrhea reported. - Prescribed Zofran PRN for nausea; minimal use since ED visit. Abdominal Pain: - Intermittent abdominal pain. - Follow-up with Dr. Mendez at [facility] scheduled in September. - History of pancreatic cyst, stable on MRI. Left Leg Pain: - Pain in the left romero area, sometimes occurring while walking or at home. - Pain does not radiate to the foot. Left Lower Back Pain: - Pain in the left lower back, described as a muscle pain with occasional swelling. - Pain exacerbated by certain movements and activities, such as picking up sticks in the yard. - Onset believed to be related to repetitive motion from shoveling snow. 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 Dementia (HCC) Diverticulosis of colon (without mention of hemorrhage) Dry cough 05/23/2016 Ganglion of joint 07/16/2005 Generalized osteoarthrosis, unspecified site Hemorrhage of gastrointestinal tract, unspecified Hemorrhage of rectum and anus Hypertension Infection of left eye Irritable bowel syndrome Osteomalacia, unspecified Other and unspecified hyperlipidemia Pneumonia, organism unspecified(486) PONV (postoperative nausea and vomiting) Psoriatic arthritis (HCC) Rectocele 01/05/2011 Skin tear of lower leg without complication 05/23/2016 Sprain of unspecified site of sacroiliac region Unspecified constipation Urge incontinence mild Current Outpatient Medications on File Prior to Visit Medication Sig hydrocortisone (ANUSOL-HC) 25 mg suppository 1 Suppository by RECTAL route two times a day as needed (hemorrhoids/rectal pain). benzonatate (TESSALON PERLE) 100 mg capsule Take 2 capsules by mouth three times a day as needed. albuterol HFA (PROVENTIL HFA, VENTOLIN HFA) 90 mcg/actuation inhaler Inhale 2 Puffs as instructed every 4 hours as needed for wheezing/shortness of breath. donepezil (ARICEPT) 10 mg tablet Take 1 tablet by mouth daily at bedtime. ketoconazole (NIZORAL) 2 % cream Apply to affected area two times a day. amitriptyline (ELAVIL) 10 mg tablet Take 1 tablet by mouth daily at bedtime. loratadine (CLARITIN) 10 mg tablet Take 1 tablet by mouth once daily. methotrexate 2.5 mg tablet TAKE 5 TABLET(S) ORAL ONCE A WEEK START 4 TABS ONCE A WEEK FOR 2 WEEKS famotidine (PEPCID) 10 mg tablet Take 1 tablet by mouth two times a day. Azelaic Acid (FINACEA) 15 % gel Apply to affected area once daily. fluorometholone (FML LIQUID FILM) 0.1 % ophthalmic suspension Use 1 Drop in both eyes once daily. FOLIC ACID ORAL Take by mouth. No current facility-administered medications on file prior to visit. Review of Systems: See HPI, otherwise negative Physical Exam: BP 120/72 (BP Site: Left Arm, BP Position: Sitting, BP Cuff Size: Regular Adult) Pulse (!) 51 Temp 36.3 ?C (97.3 ?F) Wt 54.1 kg (119 lb 4 oz) SpO2 99% BMI 24.92 kg/m? GENERAL: NAD, alert and oriented. SKIN: Unremarkable, no rash or skin lesions. LUNGS: Clear to auscultation bilaterally, no wheezes/rhonchi/rales. HEART: Regular rate and rhythm, no murmurs. No ectopy. ABDOMEN: Soft, non-tender, normal bowel sounds. EXTREMITIES: Normal, no deformities, no skin discoloration, no edema. NEURO: Awake, alert and oriented x3, cranial nerves II-XII grossly intact, normal gait, no involuntary motions. Diagnostics Reviewed: Labs - ER labs: Normal, no abnormalities found Imaging - MRI: Stable pancreatic cyst Assessment/Plan: 1. JOSHUA (generalized anxiety disorder) (F41.1) 2. Acute left-sided low back pain without sciatica (M54.50) 3. Chronic left-sided low back pain without sciatica (M54.50) - Left-sided low back pain with intermittent swelling, exacerbated by physical activities such as shoveling snow and pick (more content not included)... Normal [facility] XR LUMBAR 3V AP/LAT/L5-S1on 06-02-2024 XR LUMBAR 3V AP/LAT/L5-S1 * * *Final Report* * * DATE OF EXAM: Jun 02 2024 12:31PM [id number] - XR LUMBAR 3V AP/LAT/L5-S1 / PROCEDURE REASON: multiple diagnoses * * * * Physician Interpretation * * * * EXAMINATION / TECHNIQUE: XR LUMBAR 3V AP/LAT/L5-S1, XR THORACIC 3V AP/LAT/SWIMMERS HISTORY: pain below and lateral to left shoulder blade for a month no other complaints no inj Chronic left-sided low back pain without sciatica Chronic left-sided low back pain without sciatica COMPARISON: CT abdomen/pelvis dated 05/15/2024. Chest radiographs dated 04/27/2024. RESULT: Thoracic spine: There is leftward curvature of the thoracic spine. No thoracic compression fracture is identified. Sagittal alignment is maintained. There is moderate to severe multilevel degenerative disc disease. Lumbar spine: Counting reference: Lumbosacral junction. For the purposes of this report, L4-5 is considered the level of the iliac crest and assume there are 5 lumbar-type vertebrae. Anatomic variant: None. Rightward curvature of the lumbar spine. Vertebral body heights are maintained. Minimal anterolisthesis L4 on L5. Severe multilevel degenerative disc disease. Multilevel mid to lower lumbar facet hypertrophy. COMBINED IMPRESSION: Degenerative changes as described. Self Propelled Hot Mix Roller Operator: JAIME Transcribe Date/Time: Jun 08 2024 12:42P Dictated by : SHERRIE DOS SNATOS MD This examination was interpreted and the report reviewed and electronically signed by: SHERRIE DOS SANTOS MD on Jun 08 2024 12:43PM EST [id number] Normal [facility] XR THORACIC 3V AP/LAT/SWIMME RSon 06-02-2024 XR THORACIC 3V AP/LAT/SWIMMERS * * *Final Report* * * DATE OF EXAM: Jun 02 2024 12:31PM WOX [id number] - XR THORACIC 3V AP/LAT/SWIMMERS / PROCEDURE REASON: multiple diagnoses * * * * Physician Interpretation * * * * EXAMINATION / TECHNIQUE: XR LUMBAR 3V AP/LAT/L5-S1, XR THORACIC 3V AP/LAT/SWIMMERS HISTORY: pain below and lateral to left shoulder blade for a month no other complaints no inj Chronic left-sided low back pain without sciatica Chronic left-sided low back pain without sciatica COMPARISON: CT abdomen/pelvis dated 05/15/2024. Chest radiographs dated 04/27/2024. RESULT: Thoracic spine: There is leftward curvature of the thoracic spine. No thoracic compression fracture is identified. Sagittal alignment is maintained. There is moderate to severe multilevel degenerative disc disease. Lumbar spine: Counting reference: Lumbosacral junction. For the purposes of this report, L4-5 is considered the level of the iliac crest and assume there are 5 lumbar-type vertebrae. Anatomic variant: None. Rightward curvature of the lumbar spine. Vertebral body heights are maintained. Minimal anterolisthesis L4 on L5. Severe multilevel degenerative disc disease. Multilevel mid to lower lumbar facet hypertrophy. COMBINED IMPRESSION: Degenerative changes as described. Self Propelled Hot Mix Roller Operator: JAIME Transcribe Date/Time: Jun 08 2024 12:42P Dictated by : SHERRIE DOS SANTOS MD This examination was interpreted and the report reviewed and electronically signed by: SHERRIE DOS SANTOS MD on Jun 08 2024 12:43PM EST [id number] Normal [facility] ALLIED HEALTHon 05-15-2024 ALLIED HEALTH HNO ID: [id number] Author: GRACE RODAS, ERIC Service: Radiology Author Type: Technologist Type: Allied Health Filed: 05/15/2024 20:51 Note Text: Radiology Service Progress Note DATE OF SERVICE: May 15, 2024 TIME: 8:50 PM PATIENT IDENTITY VERIFICATION COMPLETED USING TWO (2) STANDARD IDENTIFIERS: Name and Date of confirmed by patient verbally and Name and Date of confirmed by identification band. FALL SCREENING: Has the patient had 2 falls in the last year or 1 fall with injury or currently using an Ambulatory Assistive Device (Walker, Cane, Wheelchair, Crutches, etc.)? Emergency Room Patient: Screened in ED PATIENT GENDER DATA: Assigned female at . status: : No status: NO. PATIENT RELEVANT IMPLANT DATA REVIEWED: Not Applicable PATIENT PRESENTS WITH AN IMPLANTABLE OR ATTACHED PANTOGRAPH I ENGRAVER: No ALLERGIES: Reviewed and unchanged CONTRAST ALLERGY: NO. EXAM: CT -CONTRAST INDUCED NEPHROPATHY RISK FACTORS: Patient age > 60 years CREATININE: Creatinine Date Value Ref Range Status 05/15/2024 0.76 0.58 - 0.96 mg/dL Final 03/23/2024 0.64 0.58 - 0.96 mg/dL Final 09/23/2023 0.60 0.58 - 0.96 mg/dL Final Estimated Glomerular Filtration Rate Date Value Ref Range Status 05/15/2024 77 >=60 mL/min/1.73m? Final Comment: Estimated Glomerular Filtration Rate (eGFR) is calculated using the 2020 CKD-EPI creatinine equation. This equation utilizes serum creatinine, sex, and age as parameters. The creatinine assay has traceable calibration to isotope dilution-mass spectrometry. Refer to KDIGO guidelines for clinical interpretation. In patients with unstable renal function, e.g. those with acute kidney injury, the eGFR may not accurately reflect actual GFR. eGFR- Date Value Ref Range Status 04/19/2021 >60 Final P.O.C.T. RESULTS: POC done: Yes, See Lab Tab May 15, 2024 TREATMENT: N/A PERIPHERAL IV DATA: Inpatient - refer to LDA documentation RADIOLOGY DEPARTMENT: CT; Exam(s) Completed: Abdomen/Pelvis SIGNATURE: ERIC Muir PATIENT NAME: Anaya Wilson DATE: May 15, 2024 TIME: 8:50 PM [facility] CBC W Auto Differential pane l (Bld)on 05-15-2024 Basophils (Bld) [#/Vol] 10*3/uL Normal <0.11 [facility] Comment on above: Order Comment: Speci men Type: BLOOD SPECIMENOrdering Facility: [facility] Address: [address] [place] [address] Performed By: #### 5 7021-8 ####[facility] [id number] [place] [address] [place] Basophils/100 WBC (Bld) 0.4 % Normal [facility] Comment on above: Order Comment: Speci men Type: BLOOD SPECIMENOrdering Facility: [facility] Address: [address] [place] [address] Performed By: #### 5 7021-8 ####[facility] [id number] [place] [address] [place] Differential cell count method Nom (Bld) Auto Normal [facility] Comment on above: Order Comment: Speci men Type: BLOOD SPECIMENOrdering Facility: [facility] Address: [address] [place] [address] Performed By: #### 5 7021-8 ####[facility] [id number] [place] [address] [place] Eosinophils (Bld) [#/Vol] 0.07 10*3/uL Normal <0.46 [facility] Comment on above: Order Comment: Speci men Type: BLOOD SPECIMENOrdering Facility: [facility] Address: [address] [place] [address] Performed By: #### 5 7021-8 ####[facility] [id number] [place] [address] [place] Eosinophils/100 WBC (Bld) 1.3 % Normal [facility] Comment on above: Order Comment: Speci men Type: BLOOD SPECIMENOrdering Facility: [facility] Address: [address] [place] [address] Performed By: #### 5 7021-8 ####[facility] LABORATORYCLIA [id number] [place] [address] [place] Erythrocyte distribution width (RBC) [Ratio] 14.3 % Normal 11.5-15.0 [facility] Comment on above: Order Comment: Speci men Type: BLOOD SPECIMENOrdering Facility: [facility] Address: [address] [place] [address] Performed By: #### 5 7021-8 ####[place] LABORATORYCLIA [id number] [place] [address] [place] Hematocrit (Bld) [Volume fraction] 39.0 % Normal 36.0-46.0 [facility] Comment on above: Order Comment: Speci men Type: BLOOD SPECIMENOrdering Facility: [facility] Address: [address] [place] [address] Performed By: #### 5 7021-8 ####[facility] LABORATORYCLIA [id number] [place] [address] [place] Hemoglobin (Bld) [Mass/Vol] 13.1 g/dL Normal 11.5-15.5 [facility] Comment on above: Order Comment: Speci men Type: BLOOD SPECIMENOrdering Facility: [facility] Address: [address] [place] [address] Performed By: #### 5 7021-8 ####[facility] LABORATORYCLIA [id number] [place] [address] [place] Immature granulocytes (Bld) [#/Vol] 10*3/uL Normal <0.10 [facility] Comment on above: Order Comment: Speci men Type: BLOOD SPECIMENOrdering Facility: [facility] Address: [address] [place] [address] Performed By: #### 5 7021-8 ####[facility] LABORATORYCLIA [id number] [address] [place] Immature granulocytes/100 WBC (Bld) 0.4 % Normal [facility] Comment on above: Order Comment: Speci men Type: BLOOD SPECIMENOrdering Facility: [facility] Address: [address] [place] [address] Performed By: #### 5 7021-8 ####[facility] LABORATORYCLIA [id number] [place] [address] [place] Lymphocytes (Bld) [#/Vol] 1.37 10*3/uL Normal 1.00-4.00 [facility] Comment on above: Order Comment: Speci men Type: BLOOD SPECIMENOrdering Facility: [facility] Address: [address] [place] [address] Performed By: #### 5 7021-8 ####[facility] LABORATORYCLIA [id number] [address] Lymphocytes/100 WBC (Bld) 25.0 % Normal [facility] Comment on above: Order Comment: Speci men Type: BLOOD SPECIMENOrdering Facility: [facility] Address: [address] [place] [address] Performed By: #### 5 7021-8 ####[facility] LABORATORYCLIA [id number] [address] MCH (RBC) [Entitic mass] 31.0 pg Normal 26.0-34.0 [facility] Comment on above: Order Comment: Speci men Type: BLOOD SPECIMENOrdering Facility: [facility] Address: [address] [place] [address] Performed By: #### 5 7021-8 ####[facility] LABORATORYCLIA [id number] [address] MCHC (RBC) [Mass/Vol] 33.6 g/dL Normal 30.5-36.0 [facility] Comment on above: Order Comment: Speci men Type: BLOOD SPECIMENOrdering Facility: [facility] Address: [address] [place] [address] Performed By: #### 5 7021-8 ####[facility] LABORATORYCLIA [id number] [address] MCV (RBC) [Entitic vol] 92.4 fL Normal 80.0-100.0 [facility] Comment on above: Order Comment: Speci men Type: BLOOD SPECIMENOrdering Facility: [facility] Address: [address] [place] [address] Performed By: #### 5 7021-8 ####[facility] LABORATORYCLIA [id number] [address] Monocytes (Bld) [#/Vol] 0.50 10*3/uL Normal <0.87 [facility] Comment on above: Order Comment: Speci men Type: BLOOD SPECIMENOrdering Facility: [facility] Address: [address] [place] [address] Performed By: #### 5 7021-8 ####[facility] LABORATORYCLIA [id number] [place] [address] [place] Monocytes/100 WBC (Bld) 9.1 % Normal [facility] Comment on above: Order Comment: Speci men Type: BLOOD SPECIMENOrdering Facility: [facility] Address: [address] [place] [address] Performed By: #### 5 7021-8 ####[facility] LABORATORYCLIA [id number] [place] [address] [place] Neutrophils (Bld) [#/Vol] 3.51 10*3/uL Normal 1.45-7.50 [facility] Comment on above: Order Comment: Speci men Type: BLOOD SPECIMENOrdering Facility: [facility] Address: [address] [place] [address] Performed By: #### 5 7021-8 ####[facility] LABORATORYCLIA [id number] [address] [place] Neutrophils/100 WBC (Bld) 63.8 % Normal [facility] Comment on above: Order Comment: Speci men Type: BLOOD SPECIMENOrdering Facility: [facility] Address: [address] [place] [address] Performed By: #### 5 7021-8 ####[facility] LABORATORYCLIA [id number] [place] [address] [place] Nucleated RBC (Bld) [#/Vol] 10*3/uL Normal <0.01 [facility] Comment on above: Order Comment: Speci men Type: BLOOD SPECIMENOrdering Facility: [facility] Address: [address] [place] [address] Performed By: #### 5 7021-8 ####[facility] LABORATORYCLIA [id number] [place] [address] [place] Nucleated RBC/100 WBC (Bld) [Ratio] 0.0 /100 WBC Normal [facility] Comment on above: Order Comment: Speci men Type: BLOOD SPECIMENOrdering Facility: [facility] Address: [address] [place] [address] Performed By: #### 5 7021-8 ####[facility] LABORATORYCLIA [id number] [address] [place] Platelet mean volume (Bld) [Entitic vol] 10.3 fL Normal 9.0-12.7 [facility] Comment on above: Order Comment: Speci men Type: BLOOD SPECIMENOrdering Facility: [facility] Address: [address] [place] [address] Performed By: #### 5 7021-8 ####[facility] LABORATORYCLIA [id number] [address] [place] Platelets (Bld) [#/Vol] 236 10*3/uL Normal 150-400 [facility] Comment on above: Order Comment: Speci men Type: BLOOD SPECIMENOrdering Facility: [facility] Address: [address] [place] [address] Performed By: #### 5 7021-8 ####[facility] LABORATORYCLIA [id number] [place] [address] [place] RBC (Bld) [#/Vol] 4.22 10*6/uL Normal 3.90-5.20 [facility] Comment on above: Order Comment: Speci men Type: BLOOD SPECIMENOrdering Facility: [facility] Address: [address] [place] [address] Performed By: #### 5 7021-8 ####[facility] LABORATORYCLIA [id number] [address] [place] WBC (Bld) [#/Vol] 5.49 10*3/uL Normal 3.70-11.00 [facility] Comment on above: Order Comment: Speci men Type: BLOOD SPECIMENOrdering Facility: [facility] Address: [address] [place] [address] Performed By: #### 5 7021-8 ####[facility] LABORATORYCLIA [id number] [place] [address] [place] [address] ABD/PEL W IVCONon 05-15-[address] ABD/PEL W IVCON * * *Final Report* * * DATE OF EXAM: May 15 2024 9:01PM [facility] [place]30 - CT ABD/PEL W IVCON / PROCEDURE REASON: Abdominal pain, acute, nonlocalized * * * * Physician Interpretation * * * * EXAMINATION: CT ABDOMEN AND PELVIS WITH IV CONTRAST CLINICAL HISTORY: Abdominal pain. TECHNIQUE: CT of the abdomen and pelvis was performed using standard technique, scanning from just above the dome of the diaphragm to the symphysis pubis. MQ: CTAP_3 Contrast: IV: 100 ml of Omnipaque 350 : ml of CT Radiation dose: Integrated Dose-length product (DLP) for this visit = 203 mGy*cm. CT Dose Reduction Employed: Automated exposure control(AEC) and iterative recon COMPARISON: 04/30/2024 and 12/27/2022. RESULT: Liver: Fatty infiltration of liver. No mass. Biliary: No bile duct dilation. Gallbladder is unremarkable. Spleen: No mass. No splenomegaly. Pancreas: 1.9 cm cystic lesion in the pancreatic body unchanged from prior. Adrenals: No mass. Kidneys: Subcentimeter lesions that are too small to characterize but likely benign. GI tract: No dilation or wall thickening. Normal appendix. Small hiatal hernia. Lymph nodes: No abdominal or pelvic lymphadenopathy. Mesentery/Peritoneum: No free fluid. No free air. Retroperitoneum: No mass. Vasculature: Calcified atherosclerotic plaque throughout the visualized arterial system. No aneurysm. No vascular occlusion within the limitations of contrast bolus timing. Pelvis: No mass, ascites or fluid collection. Urinary bladder is unremarkable. Bones/Soft Tissues: Moderate degenerative change. Mild to moderate apex RIGHT lumbar scoliosis. No fracture. No aggressive osseous lesion. No acute findings. Lower thorax: Lung bases are clear. Localizer images: No significant findings. IMPRESSION: 1. No acute abnormality identified in the abdomen or pelvis. 2. 1.9 cm cystic lesion in the pancreatic body unchanged from prior. 3. Fatty infiltration of liver. 4. Small hiatal hernia. Self Propelled Hot Mix Roller Operator: JAIME Transcribe Date/Time: May 15 2024 9:52P Dictated by : VICKI MALDONADO MD This examination was interpreted and the report reviewed and electronically signed by: VICKI MALDONADO MD on May 15 2024 10:01PM EST [id number] Normal [facility] Comprehensive metabolic 2000 panelon 05-15-2024 Albumin [Mass/Vol] 4.1 g/dL Normal 3.9-4.9 [facility] Comment on above: Order Comment: Speci men Type: BLOOD SPECIMENOrdering Facility: [facility] Address: [address] [place] [address] Performed By: #### 2 4323-8, 3040-3 ####[facility] LABORATORYCLIA [id number] [place] [address] [place] ALP [Catalytic activity/Vol] 128 U/L High 34-123 [facility] Comment on above: Order Comment: Speci men Type: BLOOD SPECIMENOrdering Facility: [facility] Address: [address] [place] [address] Performed By: #### 2 4323-8, 3040-3 ####[facility] LABORATORYCLIA [id number] [place] [address] [place] ALT [Catalytic activity/Vol] 31 U/L Normal 7-38 [facility] Comment on above: Order Comment: Speci men Type: BLOOD SPECIMENOrdering Facility: [facility] Address: [address] [place] [address] Performed By: #### 2 4323-8, 3040-3 ####[facility] LABORATORYCLIA [id number] [place] [id number] [place] [facility] Anion gap [Moles/Vol] 11 mmol/L Normal 8-15 [facility] Comment on above: Order Comment: Speci men Type: BLOOD SPECIMENOrdering Facility: [facility] Address: [address] [place] [address] Performed By: #### 2 4323-8, 3040-3 ####[facility] LABORATORYCLIA [id number] [place] [id number] [facility] [place] AST [Catalytic activity/Vol] 30 U/L Normal 13-35 [facility] Comment on above: Order Comment: Speci men Type: BLOOD SPECIMENOrdering Facility: [facility] Address: [address] [place], [place] [address] Performed By: #### 2 4323-8, 0-3 ####[facility] LABORATORYCLIA [id number] [place] [address] [place] Bilirubin [Mass/Vol] 0.4 mg/dL Normal 0.2-1.3 [facility] Comment on above: Order Comment: Speci men Type: BLOOD SPECIMENOrdering Facility: [facility] Address: [address] [place] [address] Performed By: #### 2 4323-8, 3039-3 ####[facility] LABORATORYCLIA [id number] [place] [address] [place] Calcium [Mass/Vol] 9.6 mg/dL Normal 8.5-10.2 [facility] Comment on above: Order Comment: Speci men Type: BLOOD SPECIMENOrdering Facility: [facility] Address: [address] [place], [place] [address] [address] Performed By: #### 2 4323-8, 3039-3 ####[facility] LABORATORYCLIA [id number] [place] [address] [place] Chloride [Moles/Vol] 99 mmol/L Normal 98-107 [facility] Comment on above: Order Comment: Speci men Type: BLOOD SPECIMENOrdering Facility: [facility] Address: [address] [place] [address] Performed By: #### 2 4323-8, 3039-3 ####[facility] LABORATORYCLIA [id number] [place] [address] [place] CO2 [Moles/Vol] 24 mmol/L Normal 22-30 [facility] Comment on above: Order Comment: Speci men Type: BLOOD SPECIMENOrdering Facility: [facility] Address: [address] [place] [address] Performed By: #### 2 4323-8, 0-3 ####[facility] LABORATORYCLIA [id number] [place] [id number] [place] Creatinine [Mass/Vol] 0.76 mg/dL Normal 0.58-0.96 [facility] Comment on above: Order Comment: Speci men Type: BLOOD SPECIMENOrdering Facility: [facility] Address: [address] [place] [address] Performed By: #### 2 4323-8, 3039-3 ####[place] LABORATORYCLIA [id number] [place] [address] [place] Creatinine and Glomerular filtration rate.predicted panel (S/P/Bld) 77 mL/min/1.73m??? Normal >=60 [facility] Comment on above: Order Comment: Wellington zuniga Type: BLOOD SPECIMENOrdering Facility: [facility] Address: [address] [place] [address] Result Comment: Julianna mated Glomerular Filtration Rate (eGFR) is calculated using the 2020 CKD-EPI creatinine equation. This equation utilizes serum creatinine, sex, and age as parameters. The creatinine assay has traceable calibration to isotope dilution-mass spectrometry. Refer to KDIGO guidelines for clinical interpretation. In patients with unstable renal function, e.g. those with acute kidney injury, the eGFR may not accurately reflect actual GFR. Performed By: #### 2 4323-8, 3039-3 ####[facility] LABORATORYCLIA [id number] [place] [address] [place] Glucose [Mass/Vol] 111 mg/dL High 74-99 [facility] Comment on above: Order Comment: Wellington zuniga Type: BLOOD SPECIMENOrdering Facility: [facility] Address: [address] [place] [address] Result Comment: The [place] Diabetes Association (ADA) provides guidance for cutoff values for fasting glucose and random glucose. The ADA defines fasting as no caloric intake for at least 8 hours. Fasting plasma glucose results between 100 to 125 mg/dL indicate increased risk for diabetes (prediabetes). Fasting plasma glucose results greater than or equal to 126 mg/dL meet the criteria for diagnosis of diabetes. In the absence of unequivocal hyperglycemia, results should be confirmed by repeat testing. In a patient with classic symptoms of hyperglycemia or hyperglycemic crisis, random plasma glucose results greater than or equal to 200 mg/dL meet the criteria for diagnosis of diabetes. Reference: Standards of Medical Care in Diabetes 2016, [place] Diabetes Association. Diabetes Care. 2016.39(Suppl 1). Performed By: #### 2 4323-8, 3040-3 ####[facility] LABORATORYCLIA [id number] [place] [address] [place] Potassium [Moles/Vol] 4.4 mmol/L Normal 3.7-5.1 [facility] Comment on above: Order Comment: Speci men Type: BLOOD SPECIMENOrdering Facility: [facility] Address: [address] [place] [address] Performed By: #### 2 4323-8, 3040-3 ####[facility] LABORATORYCLIA [id number] [place] [address] [place] Protein [Mass/Vol] 6.4 g/dL Normal 6.3-8.0 [facility] Comment on above: Order Comment: Speci men Type: BLOOD SPECIMENOrdering Facility: [facility] Address: [address] [place] [address] Performed By: #### 2 4323-8, 3040-3 ####[facility] LABORATORYCLIA [id number] [address] [place] Sodium [Moles/Vol] 134 mmol/L Low 136-144 [facility] Comment on above: Order Comment: Speci men Type: BLOOD SPECIMENOrdering Facility: [facility] Address: [address] [place] [address] Performed By: #### 2 4323-8, 3040-3 ####[facility] LABORATORYCLIA [id number] [address] [place] Urea nitrogen [Mass/Vol] 13 mg/dL Normal 7-21 [facility] Comment on above: Order Comment: Speci men Type: BLOOD SPECIMENOrdering Facility: [facility] Address: [address] [place] [address] Performed By: #### 2 4323-8, 3040-3 ####[facility] LABORATORYCLIA [id number] [place] [address] [facility] [place] ED PROV NOTEon 05-15-2024 ED PROV NOTE HNO ID: [id number] Author: TOMER MCCOY PA-C Service: ? Author Type: Physician Tray Delivery Aide Type: ED Provider Notes Filed: 05/15/2024 23:36 Note Text: ED Provider Note Patient Name: Anaya Wilson : 1940 SERVICE DATE: 05/15/24 History Patient presents with: Nausea AND Vomiting: Pt BIB from home with c/o nausea and emesis after eating. Pt denies abd pain but states her stomach feels funny. states pt is on atb for UTI. Pt states she feels UTI clearing up with atb. 84 year old female history of dementia, hypertension presents to ED accompanied by complaining of nausea and dry heaving. Recently treated for UTI, completing antibiotic. Today had nausea, dry heaves and states her stomach feels funny. Denies fever or chills. Has been able to keep some yogurt down. 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 Dementia (HCC) Diverticulosis of colon (without mention of hemorrhage) Dry cough 05/23/2016 Ganglion of joint 07/16/2005 Generalized osteoarthrosis, unspecified site Hemorrhage of gastrointestinal tract, unspecified Hemorrhage of rectum and anus Hypertension Infection of left eye Irritable bowel syndrome Osteomalacia, unspecified Other and unspecified hyperlipidemia Pneumonia, organism unspecified(486) PONV (postoperative nausea and vomiting) Psoriatic arthritis (HCC) Rectocele 01/05/2011 Skin tear of lower leg without complication 05/23/2016 Sprain of unspecified site of sacroiliac region Unspecified constipation Urge incontinence mild PAST SURGICAL HISTORY Procedure Laterality Date ARTHRP KNE CONDYLEANDPLATU MEDIALANDLAT COMPARTMENTS Right 06/03/2017 Knee replacement, total COLONOSCOPY 05/10/2022 rectal mass COLONOSCOPY FLX DX W/COLLJ SPEC WHEN PFRMD 04/20/2002 Colonoscopy COLONOSCOPY FLX DX W/COLLJ SPEC WHEN PFRMD 07/25/2011 Colonoscopy EYE SURGERY HX JOINT REPLACEMENT HX NEUROPLASTY AND/TRANSPOS MEDIAN NRV CARPAL TUNNE 1980 Carpal tunnel decomp b/l hands NEUROPLASTY AND/TRANSPOS MEDIAN NRV CARPAL TUNNE 12/18/2011 RIGHT PAST SURGICAL HISTORY OF Left laser eye surgery for glaucoma SIGMOIDOSCOPY FLX DX W/COLLJ SPEC BR/WA IF PFRMD 06/23/2007 TOTAL ABDOMINAL HYSTERECT W/WO RMVL TUBE OVARY 1988 RUBI/BSO for fibroids and bleeding TOTAL KNEE REPLACEMENT Left 03/28/2020 VAGINAL HYSTERECTOMY FAMILY HISTORY Problem Relation Age of Onset Heart Mother CHF Cancer Father prostate Psychiatry Father Cancer Brother No Known Problems Daughter No Known Problems Daughter No Known Problems Daughter Breast Cancer Maternal Aunt Colon Cancer No Family History Social History Tobacco Use Smoking status: Never Smokeless tobacco: Never Vaping Use Vaping status: Never Used Substance and Sexual Activity Alcohol use: No Drug use: No Sexual activity: Yes Partners: Male ALLERGIES Allergen Reactions Caffeine Codeine Darvocet A500 [Prop* Vomiting Demerol [Meperidine* Vomiting Entex [Phenylephrin* Ephedrine Other: See Comments Heart palpitations Griseofulvin Milk Containing Pro* Intolerance Nasal stuffiness Tramadol Other: See Comments Nausea, vomiting, dry heaves after carpal tunnel surgery Vicodin [Hydrocodon* Itching Zoloft [Sertraline * Mental Status Change Increased anxiety and feeling of depression. Started in 2005, not noted then Review of Systems Constitutional: Negative for chills and fever. Respiratory: Negative. Cardiovascular: Negative. Gastrointestinal: Positive for abdominal pain, nausea and vomiting. Musculoskeletal: Negative. Skin: Negative. Neurological: Negative. Physical Exam Vitals [05/15/242009] BP Pulse Temp Temp src Resp SpO2 Weight Height 153/58 (!) 52 36.6 ?C (97.8 ?F) Oral 18 97 % 55.3 kg (122 lb) -- Physical Exam Vitals and nursing note reviewed. Constitutional: Appearance: Normal appearance. HENT: Head: Normocephalic and atraumatic. Mouth/Throat: Mouth: Mucous membranes are moist. Cardiovascular: Rate and Rhythm: Normal rate. Pulses: Normal pulses. Pulmonary: Effort: Pulmonary effort is normal. Abdominal: Palpations: Abdomen is soft. Tenderness: There is no abdominal tenderness. Skin: General: Skin is warm and dry. Capillary Refill: Capillary refill takes less than 2 seconds. Neurological: Mental Status: She is alert and oriented to person, place, and time. Mental status is at baseline. Gait: Gait normal. Diagnostic Testing ED Labs Ordered and Reviewed COMPREHENSIVE METABOLIC PANEL - Abnormal; Notable for the following components: Result Value Ref Range Alkaline Phosphatase 128 (*) 34 - 123 U/L (more content not included)... Normal [facility] ED Triage Noteon 05-15-2024 ED Triage Note HNO ID: [id number] Author: JESSY ZHANG MD Service: Emergency Medicine Author Type: Physician Type: ED Triage Notes Filed: 05/15/2024 20:15 Note Text: ED INTAKE NOTE Patient Name: Anaya Wilson Service Date: 05/15/24 BRIEF HPI: This is a 84 year old female who presents to the ED with: Nausea, vomiting, and intermittent abdominal pain. BRIEF EXAM: NAD Awake and Alert Non labored breathing INITIAL WORKUP AND DECISION MAKING: Orders Placed This Encounter CT ABD/PEL W IVCON COMP METABOLIC PANEL (BMP+LFT) LIPASE BLD CBC + DIFF Urinalysis w Microscopic, reflex Culture iv contrast (radiology procedure) Further triage/room assignment per nursing Limited role in this case performing a screening of the patient in triage Further work up, treatment, follow up on testing ordered from triage, further testing, care, disposition, and final MDM per downstream emergency provider team Please see downstream ED providers's notation for full HnP and MDM Provider examination performed via virtual platform with assistance from bedside clinician. SIGNATURE: Jessy Zhang MD Normal [facility] Lipase SerPl-cCncon 05-16-19 25 Lipase [Catalytic activity/Vol] 43 U/L Normal 16-61 [facility] Comment on above: Order Comment: Speci men Type: BLOOD SPECIMENOrdering Facility: [facility] Address: [address] [place] [address] Performed By: #### 2 4323-8, 3040-3 ####[place] LABORATORYCLIA [id number] [place] [address] [place] Urinalysis complete panel (U )on 05-15-2024 Bilirubin Ql (U) Negative Normal Negative [facility] Comment on above: Order Comment: Speci men Type: URINE SPECIMENOrdering Facility: [facility] Address: [address] [place] [address] Performed By: #### 2 4356-8 ####[place] LABORATORYCLIA [id number] [place] [address] [place] Clarity (Unsp spec) Clear Normal Clear [facility] Comment on above: Order Comment: Speci men Type: URINE SPECIMENOrdering Facility: [facility] Address: [address] [place] [address] Performed By: #### 2 4356-8 ####[place] LABORATORYCLIA [id number] [address] [place] Color (U) Yellow Normal Yellow [facility] Comment on above: Order Comment: Speci men Type: URINE SPECIMENOrdering Facility: [facility] Address: [address] [place] [address] Performed By: #### 2 4356-8 ####[place] LABORATORYCLIA [id number] [address] [place] Epithelial cells LM.HPF (Urine sed) [#/Area] Few Normal [facility] Comment on above: Order Comment: Speci men Type: URINE SPECIMENOrdering Facility: [facility] Address: [address] [place] [address] Performed By: #### 2 4356-8 ####[facility] LABORATORYCLIA [id number] [place] [address] [place] Glucose Test strip (U) [Mass/Vol] Negative Normal Negative [facility] Comment on above: Order Comment: Speci men Type: URINE SPECIMENOrdering Facility: [facility] Address: [address] [place] [address] Performed By: #### 2 4356-8 ####[facility] LABORATORYCLIA [id number] [place] [address] [place] Hemoglobin Ql (U) Trace Abnormal Negative [facility] Comment on above: Order Comment: Speci men Type: URINE SPECIMENOrdering Facility: [facility] Address: [address] [place] [address] Performed By: #### 2 4356-8 ####[facility] LABORATORYCLIA [id number] [address] [place] Ketones Ql (U) Negative Normal Negative [facility] Comment on above: Order Comment: Speci men Type: URINE SPECIMENOrdering Facility: [facility] Address: [address] [place] [address] Performed By: #### 2 4356-8 ####[facility] LABORATORYCLIA [id number] [address] Leukocyte esterase Test strip Ql (U) Negative Normal Negative [facility] Comment on above: Order Comment: Speci men Type: URINE SPECIMENOrdering Facility: [facility] Address: [address] [place] [address] Performed By: #### 2 4356-8 ####[facility] LABORATORYCLIA [id number] [place] [address] [place] Nitrite Ql (U) Negative Normal Negative [facility] Comment on above: Order Comment: Speci men Type: URINE SPECIMENOrdering Facility: [facility] Address: [address] [place] [address] Performed By: #### 2 4356-8 ####[facility] LABORATORYCLIA [id number] [address] [place] pH (U) 6.5 [pH] Normal 5.0-8.0 [facility] Comment on above: Order Comment: Speci men Type: URINE SPECIMENOrdering Facility: [facility] Address: [address] [place] [address] Performed By: #### 2 4356-8 ####[facility]ORATORYCLIA [id number] [address] STATES [facility] Protein (U) [Mass/Vol] Negative Normal Negative [facility] Comment on above: Order Comment: Speci men Type: URINE SPECIMENOrdering Facility: [facility] Address: [address] [place] [address] Performed By: #### 2 4356-8 ####[facility] LABORATORYCLIA [id number] [place] [address] [place] RBC LM.HPF (Urine sed) [#/Area] 0-3 /HPF Normal 0-3 /HPF [facility] Comment on above: Order Comment: Speci men Type: URINE SPECIMENOrdering Facility: [facility] Address: [address] [place] [address] Performed By: #### 2 4356-8 ####[facility]ORATORYCLIA [id number] [address] Specific gravity (U) [Rel density] 1.010 Normal 1.005-1.030 [facility] Comment on above: Order Comment: Speci men Type: URINE SPECIMENOrdering Facility: [facility] Address: [address] [place] [address] Performed By: #### 2 4356-8 ####[facility]ORATORYCLIA [id number] [address] Urobilinogen Ql (U) 0.2 EU/dL Normal 0.2-1.0 EU/dL [facility] Comment on above: Order Comment: Speci men Type: URINE SPECIMENOrdering Facility: [facility] Address: [address] [place] [address] Performed By: #### 2 4356-8 ####[facility]ITALCLIA [id number] [address] WBC LM.HPF (Urine sed) [#/Area] 0-5 /HPF Normal 0-5 /HPF [facility] Comment on above: Order Comment: Speci men Type: URINE SPECIMENOrdering Facility: [facility] Address: [address] [place] [address] Performed By: #### 2 4356-8 ####[facility]PITALCLIA [id number] [address] [place] Bacteria Ur Culton Bacteria identified Cx Nom (U) ORGANISM ID: 1 <10,000 CFU/ml Normal urogenital ji Normal [facility] Comment on above: Performed By: #### 6 30-4 ####[facility] LABCLIA [id number] [address] [place] CNOVon 05-06-2024 CNOV Office Visit (FAMPWS ) -- ANAYA WILSON ([id number]) 1940 F Date Time Provider Department 05/06/24 10:00 AM K[place]I P[place] During your visit today, we recorded the following information about you: Temperature Pulse Respiration Blood pressure 98.2 degrees 54/minute 12/minute 110/62 Weight 55.2 kg Kandi Park, PARMJIT.SHIP KEEPER 05/06/2024 11:24 AM Signed Chief Complaint Patient presents with: Urinary Frequency: For about 2-3 days completed celphalexin on 05/03 HPI Anaya Wilson is a 84 year old female who presents here today for Above Complaints. Anaya is an established patient of Dr. Bharat DO. Concerns today.. [facility] d/t urinary urgency/frequency and cough/congestion. Per note: ASSESSMENT/PLAN: 1. Urinary frequency - ICD9: 788.41, ICD10: R35.0 (primary diagnosis) acute - UA positive for klever esterase and hematuria - Send urine for culture - Begin treatment with cephalexin for 7 days - Patient education for prevention given Back pain I feel is musculoskeletal - UA DIP, URINE (POC) - BACTERIAL CULTURE, URINE - CEPHALEXIN 500 MG CAPSULE 2. Acute cough - ICD9: 786.2, ICD10: R05.1 No xray at time of exam. Return tomorrow xray -If you experience chest pain/shortness of breath go to ER - XR CHEST 2V FRONTAL/LAT - BENZONATATE 100 MG CAPSULE CXR was normal. Today in office... Finished cephalexin antibiotic on 05/03. About 1-2 days later, all of the same symptoms started to arise again. Pt c/o urinary frequency and urgency. No burning with urination. Hx of recurrent UTIs. Normally does well on keflex regimen per pt. Pt denies any vaginal discharge or itchiness. No back pain yet, just lower pelvic pressure occasionally. Urine culture form 04/26 showed mixed microbiota. No other concerns or complaints. Past medical history, appointments, medications, allergies reviewed. 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 Dementia (HCC) Diverticulosis of colon (without mention of hemorrhage) Dry cough 05/23/2016 Ganglion of joint 07/16/2005 Generalized osteoarthrosis, unspecified site Hemorrhage of gastrointestinal tract, unspecified Hemorrhage of rectum and anus Hypertension Infection of left eye Irritable bowel syndrome Osteomalacia, unspecified Other and unspecified hyperlipidemia Pneumonia, organism unspecified(486) PONV (postoperative nausea and vomiting) Psoriatic arthritis (HCC) Rectocele 01/05/2011 Skin tear of lower leg without complication 05/23/2016 Sprain of unspecified site of sacroiliac region Unspecified constipation Urge incontinence mild Previous Surgical History PAST SURGICAL HISTORY Procedure Laterality Date ARTHRP KNE CONDYLEANDPLATU MEDIALANDLAT COMPARTMENTS Right 06/03/2017 Knee replacement, total COLONOSCOPY 05/10/2022 rectal mass COLONOSCOPY FLX DX W/COLLJ SPEC WHEN PFRMD 04/20/2002 Colonoscopy COLONOSCOPY FLX DX W/COLLJ SPEC WHEN PFRMD 07/25/2011 Colonoscopy EYE SURGERY HX JOINT REPLACEMENT HX NEUROPLASTY AND/TRANSPOS MEDIAN NRV CARPAL TUNNE 1979 Carpal tunnel decomp b/l hands NEUROPLASTY AND/TRANSPOS MEDIAN NRV CARPAL TUNNE 12/18/2011 RIGHT PAST SURGICAL HISTORY OF Left laser eye surgery for glaucoma SIGMOIDOSCOPY FLX DX W/COLLJ SPEC BR/WA IF PFRMD 06/23/2007 TOTAL ABDOMINAL HYSTERECT W/WO RMVL TUBE OVARY 1988 RUBI/BSO for fibroids and bleeding TOTAL KNEE REPLACEMENT Left 03/28/2020 VAGINAL HYSTERECTOMY Family History FAMILY HISTORY Problem Relation Age of Onset Heart Mother CHF Cancer Father prostate Psychiatry Father Cancer Brother No Known Problems Daughter No Known Problems Daughter No Known Problems Daughter Breast Cancer Maternal Aunt Colon Cancer No Family History Patient Allergies ALLERGIES Allergen Reactions Caffeine Codeine Darvocet A500 [Prop* Vomiting Demerol [Meperidine* Vomiting Entex [Phenylephrin* Ephedrine Other: See Comments Heart palpitations Griseofulvin Milk Containing Pro* Intolerance Nasal stuffiness Tramadol Other: See Comments Nausea, vomiting, dry heaves after carpal tunnel surgery Vicodin [Hydrocodon* Itching Zoloft [Sertraline * Mental Status Change Increased anxiety and feeling of depression. Started in 2005, not noted then Current Medications Current Outpatient Medications on File Prior to Visit Medication Sig hydrocortisone (ANUSOL-HC) 25 mg suppository 1 Suppository by RECTAL route two times a day as needed (hemorrhoids/rectal pain). benzonatate (TESSALON PERLE) 100 mg capsule Take 2 capsules by mouth three times a day (more content not included)... Normal [facility] UA DIP, URINE (POC)on 2024 BILIRUBIN UA (POCT) Negative Negative [facility] CLARITY UA (POCT) [facility] COLOR UA (POCT) Yellow [facility] GLUCOSE UA (POCT) Negative Negative mg/dL [facility] Hemoglobin Ql (U) Negative Negative [facility] Interpretation and review of laboratory results Abnormal [facility] KETONE UA (POCT) Negative Negative mg/dL [facility] LEUKOCYTES UA (POCT) Trace Abnormal Negative [facility] NITRITE UA (POCT) Negative Negative [facility] PH UA (POCT) 7.5 4.5 - 8.0 [facility] Protein Ql (U) Negative Negative mg/dL [facility] SPECIFIC GRAVITY UA (POCT) 1.015 1.005 - 1.030 [facility] UROBILINOGEN UA (POCT) 0.2 Normal E.U./dL [facility] Location:[facility], [address] [place] [address], [place], [place], [id number] [place] [address] POINT OF CARE [facility] MRI PANC/ARETHA WO/W IVCONon MRI PANC/ARETHA WO/W IVCON * * *Final Report* * * DATE OF EXAM: Apr 30 2024 12:15PM [facility] 0730 - MRI PANC/ARETHA WO/W IVCON / PROCEDURE REASON: Pancreas cyst * * * * Physician Interpretation * * * * Examination: MRI PANC/ARETHA WO/W IVCON History: Pancreas cyst Comparison: 03/23/2024 CT. 05/22/2023 MR TECHNIQUE: Using the torso phased array coil, axial STIR, T1 weighted in- and xpi-ok-brktc and axial and coronal HASTE (multslice MRCP) images were obtained. Thick-slab heavily T2 weighted images (projection MRCP) were also obtained. Then, using a 3-D GRE T1 weighted sequence, dynamic images were obtained before, during and after the administration of intravenous Elucirem 5.5 cc Three dimensional imaging was created on a dedicated stand-alone 3D workstation RESULT: Liver: No mass. Biliary: No bile duct dilation. Gallbladder is unremarkable. Common duct is normal in course and caliber. No filling defect within it. Spleen: No mass. No splenomegaly. Pancreas: Septated cystic lesion in the pancreatic body of 1.8 x 1.9 cm. Stable. Image 31 series 3. No additional or developing focal pancreatic lesion. Pancreatic duct is normal in caliber. No divisum. Adrenals: No mass. Kidneys: No suspicious mass or gross obstructive uropathy GI tract: No dilation or wall thickening. Lymph nodes: No abdominal or pelvic lymphadenopathy. Mesentery/Peritoneum: No ascites or mass. Retroperitoneum: No mass. Vasculature: - Abdominal aorta and iliac arteries: No aneurysm. - Celiac and SMA: Patent without stenosis. - Portal venous system (SMV, splenic vein, portal vein and branches): Patent. - Hepatic veins: Incompletely opacified, likely due to early phase of enhancement. Pelvis: No mass, ascites or fluid collection. Bones/Soft Tissues: Degenerative changes. Scoliosis Lower thorax: Unremarkable. Localizer images: No additional findings. IMPRESSION: Stable loculated pancreatic body cystic lesion. No pathologic enhancement. No worrisome features. Self Propelled Hot Mix Roller Operator: [facility] Transcribe Date/Time: May 01 2024 3:34P Dictated by : LIDIA AGUILAR MD This examination was interpreted and the report reviewed and electronically signed by: LIDIA AGUILAR MD on May 01 2024 3:43PM EST [id number] Normal [facility] XR CHEST 2V FRONTAL/LATon XR CHEST 2V FRONTAL/LAT * * *Final Report* * * DATE OF EXAM: Apr 27 2024 11:38AM WOX [id number] - XR CHEST 2V FRONTAL/LAT / PROCEDURE REASON: Acute cough * * * * Physician Interpretation * * * * EXAMINATION: CHEST RADIOGRAPH (2 VIEW FRONTAL and LATERAL) CLINICAL HISTORY: Acute cough MQ: XC2_6 EXAM DATE/TIME: 04/27/2024 11:38 AM COMPARISON: Chest x-ray dated 09/23/2023 RESULT: Lines, tubes, and devices: None. Lungs and pleura: Stable mild curvilinear scarring in the lingula. No consolidation. No lung mass. No pleural effusion. No pneumothorax. 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 Cardiomediastinal silhouette: Stable cardiomediastinal silhouette. Mildly prominent left pericardial fat pad. Bones and soft tissues: Degenerative changes are present within the thoracic spine. IMPRESSION: No acute radiographic abnormality. Self Propelled Hot Mix Roller Operator: JAIME Transcribe Date/Time: Apr 27 2024 11:46A Dictated by : RAUL MUNSON MD This examination was interpreted and the report reviewed and electronically signed by: RAUL MUNSON MD on Apr 27 2024 11:54AM EST [id number] Normal [facility] XR Chest PA and Lateralon IMPRESSION: No acute radiographic abnormality. Self Propelled Hot Mix Roller Operator: JAIME Transcribe Date/Time: Apr 27 2024 11:46A Dictated by : RAUL MUNSON MD This examination was interpreted and the report reviewed and electronically signed by: RAUL MUNSON MD on Apr 27 2024 11:54AM EST DIVISION OF RADIOLOGY * * *Final Report* * * DATE OF EXAM: Apr 27 2024 11:38AM WOX [id number] - XR CHEST 2V FRONTAL/LAT / PROCEDURE REASON: Acute cough * * * * Physician Interpretation * * * * EXAMINATION: CHEST RADIOGRAPH (2 VIEW FRONTAL & LATERAL) CLINICAL HISTORY: Acute cough MQ: XC2_6 EXAM DATE/TIME: 04/27/2024 11:38 AM COMPARISON: Chest x-ray dated 09/23/2023 RESULT: Lines, tubes, and devices: None. Lungs and pleura: Stable mild curvilinear scarring in the lingula. No consolidation. No lung mass. No pleural effusion. No pneumothorax. 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 Cardiomediastinal silhouette: Stable cardiomediastinal silhouette. Mildly prominent left pericardial fat pad. Bones and soft tissues: Degenerative changes are present within the thoracic spine. DIVISION OF RADIOLOGY Provider, [facility] - 04/27/2024 * * *Final Report* * * DATE OF EXAM: Apr 27 2024 11:38AM WOX [id number] - XR CHEST 2V FRONTAL/LAT / PROCEDURE REASON: Acute cough * * * * Physician Interpretation * * * * EXAMINATION: CHEST RADIOGRAPH (2 VIEW FRONTAL & LATERAL) CLINICAL HISTORY: Acute cough MQ: XC2_6 EXAM DATE/TIME: 04/27/2024 11:38 AM COMPARISON: Chest x-ray dated 09/23/2023 RESULT: Lines, tubes, and devices: None. Lungs and pleura: Stable mild curvilinear scarring in the lingula. No consolidation. No lung mass. No pleural effusion. No pneumothorax. 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 Cardiomediastinal silhouette: Stable cardiomediastinal silhouette. Mildly prominent left pericardial fat pad. Bones and soft tissues: Degenerative changes are present within the thoracic spine. IMPRESSION IMPRESSION: No acute radiographic abnormality. Self Propelled Hot Mix Roller Operator: JAIME Transcribe Date/Time: Apr 27 2024 11:46A Dictated by : RAUL MUNSON MD This examination was interpreted and the report reviewed and electronically signed by: RAUL MUNSON MD on Apr 27 2024 11:54AM EST [facility] Radiology Study observation (narrative) [facility] XR Chest PA and LateralOrder ed By: [facility] Provider on 04-27-2024 [facility] Bacteria Ur Culton Bacteria identified Cx Nom (U) ORGANISM ID: 1 50,000-<100,000 CFU/ml Mixed microbiota No further workup. Mixed microbiota can be due to???urine???contamination with skin bacteria at time of collection or presence of a long-term urinary catheter. If a new culture is needed, please consider re-education of the patient on proper midstream co llection technique or straight catheterization for???urine???collection. Normal [facility] Comment on above: Performed By: #### 6 30-4 #### [facility] CLIA [id number] [address] [place] [address] [place] CNOVon 04-26-2024 CNOV Office Visit (UCWSTR ) -- ANAYA WILSON Cristhian ([id number]) 1940 F Date Time Provider Department 04/26/24 1:00 PM SHERRIE GONZALES UCWSTR During your visit today, we recorded the following information about you: Temperature Pulse Respiration Blood pressure 97.9 degrees 60/minute 20/minute 120/68 Weight 55.9 kg Sherrie Gonzales APRN.SHIP KEEPER 04/26/2024 1:36 PM Addendum Return tomorrow for chest xray Go to ER for severe or worsening symptoms. URINARY TRACT INFECTION GENERAL INFORMATION: A urinary tract infection (UTI) is an infection of the bladder or kidneys. A bladder infection, called cystitis, is the more common type. If the infection travels up to the kidneys, it is called pyelonephritis. This can be more serious. UTIs are a common problem in women. Having sexual relations can leave a woman more susceptible to developing a UTI, but it is not sexually transmitted like gonorrhea. Some women have a problem with recurrent UTIs. INSTRUCTIONS: 1. Your doctor prescribed an antibiotic to treat the UTI. Take exactly as directed. Be sure to take all the medication prescribed, even if your symptoms disappear. If you stop treatment early, the infection may not be fully treated and the symptoms could come back again. 2. Get plenty of rest. You may take acetaminophen for fever and aches. 3. Drink 6 to 8 glasses of fluids, especially water, every day. This helps wash out germs from your urinary tract. Cranberry juice or other sources of vitamin C are also good for you. 4. Urinate often, as soon as you feel the urge. Empty your bladder completely. Urinate before and after you have sex. 5. Always wipe from front to back after going to the bathroom. This pushes germs away from your bladder, rather than towards it. 6. Showers are better than baths, and you should wash the genital area daily. Avoid bubble bath or bath oils if you do take a bath. 7. Wear underwear and pantyhose with a cotton crotch. CONTACT YOUR DOCTOR: 1. You have a temperature over 102F (38.8C) after 48 hours on medication. 2. You notice blood in your urine. 3. Your symptoms don't improve in 2 days. 4. You develop nausea, vomiting, diarrhea, or a rash. 5. You develop new or unexplained symptoms. These may be related to the medication you are taking. 6. Your symptoms return after you finish treatment. RETURN TO THE EMERGENCY DEPARTMENT IF: You develop vomiting and can't keep your medication or fluids down. Sherrie Gonzales APRN.SHIP KEEPER 04/26/2024 2:05 PM Addendum Subjective HPI HPI Anaya Wilson is a 84 year old female who presents today for CC of cough/congestion for 1 week. Has tried otc medication for relief. Symptoms are worsened by nothing. No sick exposures. Urinary urgency, frequency for 1 week, also having left back pain. Denies fever, abd pain. Hx of uti. Back pains started after shoveling snow. 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 Dementia (HCC) Diverticulosis of colon (without mention of hemorrhage) Dry cough 05/23/2016 Ganglion of joint 07/16/2005 Generalized osteoarthrosis, unspecified site Hemorrhage of gastrointestinal tract, unspecified Hemorrhage of rectum and anus Hypertension Infection of left eye Irritable bowel syndrome Osteomalacia, unspecified Other and unspecified hyperlipidemia Pneumonia, organism unspecified(486) PONV (postoperative nausea and vomiting) Psoriatic arthritis (HCC) Rectocele 01/05/2011 Skin tear of lower leg without complication 05/23/2016 Sprain of unspecified site of sacroiliac region Unspecified constipation Urge incontinence mild PAST SURGICAL HISTORY Procedure Laterality Date ARTHRP KNE CONDYLEANDPLATU MEDIALANDLAT COMPARTMENTS Right 06/03/2017 Knee replacement, total COLONOSCOPY 05/10/2022 rectal mass COLONOSCOPY FLX DX W/COLLJ SPEC WHEN PFRMD 04/20/2002 Colonoscopy COLONOSCOPY FLX DX W/COLLJ SPEC WHEN PFRMD 07/25/2011 Colonoscopy EYE SURGERY HX JOINT REPLACEMENT HX NEUROPLASTY AND/TRANSPOS MEDIAN NRV CARPAL TUNNE 1979 Carpal tunnel decomp b/l hands NEUROPLASTY AND/TRANSPOS MEDIAN NRV CARPAL TUNNE 12/18/2011 RIGHT PAST SURGICAL HISTORY OF Left laser eye surgery for glaucoma SIGMOIDOSCOPY FLX DX W/COLLJ SPEC BR/WA IF PFRMD 06/23/2007 TOTAL ABDOMINAL HYSTERECT W/WO RMVL TUBE OVARY 1988 RUBI/BSO for fibroids and bleeding TOTAL KNEE REPLACEMENT Left 03/28/2020 VAGINAL HYSTERECTOMY ALLERGIES Caffeine, Codeine, Darvocet A500 [Propoxyphene N-Acetaminophen], Demerol [Meperidine (Pf)], Entex [Phenylephrine-Guaifenesin ], Ephe (more content not included)... Normal [facility] UA DIP, URINE (POC)on 2024 BILIRUBIN UA (POCT) Negative Negative [facility] CLARITY UA (POCT) Clear [facility] COLOR UA (POCT) Yellow [facility] GLUCOSE UA (POCT) Negative Negative mg/dL [facility] Hemoglobin Ql (U) Trace-intact Abnormal Negative [facility] Interpretation and review of laboratory results Abnormal [facility] KETONE UA (POCT) Negative Negative mg/dL [facility] LEUKOCYTES UA (POCT) Small Abnormal Negative [facility] NITRITE UA (POCT) Negative Negative [facility] PH UA (POCT) 7 4.5 - 8.0 [facility] Protein Ql (U) Negative Negative mg/dL [facility] SPECIFIC GRAVITY UA (POCT) 1.015 1.005 - 1.030 [facility] UROBILINOGEN UA (POCT) 0.2 Normal E.U./dL [facility] Location:[facility], [address] [facility], [place], [address] [facility] POINT OF CARE [facility] CNOVon 04-15-2024 CNOV Office Visit (FAMPWS ) -- ANAYA WILSON ([id number]) 1940 F Date Time Provider Department 04/15/24 12:40 PM TO SIBLEY During your visit today, we recorded the following information about you: Temperature Pulse Respiration Blood pressure 98.2 degrees 54/minute 16/minute 128/62 Weight 55.7 kg To Sibley MD 04/15/2024 1:15 PM Signed Chief Complaint Patient presents with: URI Cough: Productive HPI Anaya Wilson is a 84 year old female who presents here today for Above Complaints. Accompanied to by her who is assisting with history due to her dementia. Patient complaining of productive cough with yellow sputum x 3-4 days. Worse in the morning. No exacerbating factors otherwise. Not taking anything OTC for cough. Denies fever/chills, SOB, wheezing, chest pain, chest congestion, headache, sore throat, myalgias, fatigue, new loss of taste/smell, nasal congestion, rhinorrhea, nausea, vomiting, diarrhea. No sick contacts or exposure to COVID or flu. Symptoms have been gradually worsening. Past medical history, appointments, medications, allergies reviewed. 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 Dementia (HCC) Diverticulosis of colon (without mention of hemorrhage) Dry cough 05/23/2016 Ganglion of joint 07/16/2005 Generalized osteoarthrosis, unspecified site Hemorrhage of gastrointestinal tract, unspecified Hemorrhage of rectum and anus Hypertension Infection of left eye Irritable bowel syndrome Osteomalacia, unspecified Other and unspecified hyperlipidemia Pneumonia, organism unspecified(486) PONV (postoperative nausea and vomiting) Psoriatic arthritis (HCC) Rectocele 01/05/2011 Skin tear of lower leg without complication 05/23/2016 Sprain of unspecified site of sacroiliac region Unspecified constipation Urge incontinence mild Previous Surgical History PAST SURGICAL HISTORY Procedure Laterality Date ARTHRP KNE CONDYLEANDPLATU MEDIALANDLAT COMPARTMENTS Right 06/03/2017 Knee replacement, total COLONOSCOPY 05/10/2022 rectal mass COLONOSCOPY FLX DX W/COLLJ SPEC WHEN PFRMD 04/20/2002 Colonoscopy COLONOSCOPY FLX DX W/COLLJ SPEC WHEN PFRMD 07/25/2011 Colonoscopy EYE SURGERY HX JOINT REPLACEMENT HX NEUROPLASTY AND/TRANSPOS MEDIAN NRV CARPAL TUNNE 1979 Carpal tunnel decomp b/l hands NEUROPLASTY AND/TRANSPOS MEDIAN NRV CARPAL TUNNE 12/18/2011 RIGHT PAST SURGICAL HISTORY OF Left laser eye surgery for glaucoma SIGMOIDOSCOPY FLX DX W/COLLJ SPEC BR/WA IF PFRMD 06/23/2007 TOTAL ABDOMINAL HYSTERECT W/WO RMVL TUBE OVARY 1988 RUBI/BSO for fibroids and bleeding TOTAL KNEE REPLACEMENT Left 03/28/2020 VAGINAL HYSTERECTOMY Family History FAMILY HISTORY Problem Relation Age of Onset Heart Mother CHF Cancer Father prostate Psychiatry Father Cancer Brother No Known Problems Daughter No Known Problems Daughter No Known Problems Daughter Breast Cancer Maternal Aunt Colon Cancer No Family History Patient Allergies ALLERGIES Allergen Reactions Caffeine Codeine Darvocet A500 [Prop* Vomiting Demerol [Meperidine* Vomiting Entex [Phenylephrin* Ephedrine Other: See Comments Heart palpitations Griseofulvin Milk Containing Pro* Intolerance Nasal stuffiness Tramadol Other: See Comments Nausea, vomiting, dry heaves after carpal tunnel surgery Vicodin [Hydrocodon* Itching Zoloft [Sertraline * Mental Status Change Increased anxiety and feeling of depression. Started in 2005, not noted then Current Medications Current Outpatient Medications on File Prior to Visit Medication Sig donepezil (ARICEPT) 10 mg tablet Take 1 tablet by mouth daily at bedtime. cyclobenzaprine (FLEXERIL) 5 mg tablet Take 1 tablet by mouth three times a day as needed. ketoconazole (NIZORAL) 2 % cream Apply to affected area two times a day. amitriptyline (ELAVIL) 10 mg tablet Take 1 tablet by mouth daily at bedtime. loratadine (CLARITIN) 10 mg tablet Take 1 tablet by mouth once daily. methotrexate 2.5 mg tablet TAKE 5 TABLET(S) ORAL ONCE A WEEK START 4 TABS ONCE A WEEK FOR 2 WEEKS hydrocortisone (ANUSOL-HC) 25 mg suppository 1 Suppository by RECTAL route two times a day as needed (hemorrhoids/rectal pain). losartan (COZAAR) 25 mg tablet Take 1 tablet by mouth once daily. FLUoxetine (PROZAC) 10 mg capsule Take 1 capsule by mouth once daily. famotidine (PEPCID) 10 mg tablet Take 1 tablet by mouth two times a day. Azelaic Acid (FINACEA) 15 % gel Apply to affected area once daily. fluorometholone (FML LIQUID FILM) 0.1 % ophthalmic suspension Use 1 Drop in (more content not included)... Normal [facility] CNPNon 04-15-2024 CNPN Telephone (FAMPWS) -- ANAYA WILSON ([id number]) 1940 F Date Time Provider Department 04/15/24 TO [facility] During your visit today, we recorded the following information about you: Nell Barnett RN 04/15/2024 11:28 AM Signed Pt called in and reports she has a cough and is bringing up slightly yellow mucus. Pt denies runny nose, SOB, and wheezing. Pt does not know if she has been running a fever. Pt scheduled with Dr Sibley today at 1240. Allergies As of Date: 04/15/2024 Noted Allergy Reaction CAFFEINE 12/01/2004 CODEINE 12/01/2004 DARVOCET A500 (PROPOXYPHENE N-REINALDO*12/01/2004 11 - Vomiting DEMEROL (MEPERIDINE (PF)) 07/07/2015 11 - Vomiting ENTEX (PHENYLEPHRINE-GUAIFENESIN ) 12/01/2004 EPHEDRINE 12/01/2004 14 - Other: See Comments Comments: Heart palpitations GRISEOFULVIN 12/01/2004 MILK CONTAINING PRODUCTS (DAIRY) 11/15/2016 5 - Intolerance Comments: Nasal stuffiness TRAMADOL 12/21/2011 14 - Other: See Comments Comments: Nausea, vomiting, dry heaves after carpal tunnel surgery VICODIN (HYDROCODONE-ACETAMINOPHE* 07/07/2015 9 - Itching ZOLOFT (SERTRALINE HCL) 09/25/2006 1 - Mental Status Change Comments: Increased anxiety and feeling of depression. Started in 2005, not noted then Date Reviewed: 03/25/2024 Reviewed by: Angeline Monterroso APRN.SHIP KEEPER - Fully Assessed Reason for Visit: Patient Update [1234] Appointment [186] Prescriptions as of 04/15/2024 - donepezil (ARICEPT) 10 mg tablet Take 1 tablet by mouth daily at bedtime. - cyclobenzaprine (FLEXERIL) 5 mg tablet Take 1 tablet by mouth three times a day as needed. - ketoconazole (NIZORAL) 2 % cream Apply to affected area two times a day. - amitriptyline (ELAVIL) 10 mg tablet Take 1 tablet by mouth daily at bedtime. - loratadine (CLARITIN) 10 mg tablet Take 1 tablet by mouth once daily. - methotrexate 2.5 mg tablet TAKE 5 TABLET(S) ORAL ONCE A WEEK START 4 TABS ONCE A WEEK FOR 2 WEEKS - hydrocortisone (ANUSOL-HC) 25 mg suppository 1 Suppository by RECTAL route two times a day as needed (hemorrhoids/rectal pain). - losartan (COZAAR) 25 mg tablet Take 1 tablet by mouth once daily. - FLUoxetine (PROZAC) 10 mg capsule Take 1 capsule by mouth once daily. - famotidine (PEPCID) 10 mg tablet Take 1 tablet by mouth two times a day. - Azelaic Acid (FINACEA) 15 % gel Apply to affected area once daily. - fluorometholone (FML LIQUID FILM) 0.1 % ophthalmic suspension Use 1 Drop in both eyes once daily. - FOLIC ACID ORAL Take by mouth. Meds Comments as of 07/12/2019: 09/07/16: Not taking motrin or naprosyn. MS Does not take Naprosyn or Ibuprofen [facility] -May 27, 2019 Patient currently taking her prescription medications as prescriped. Esperanza Singleton RN 2019 Pt. stating has not been taking polyethylene glycol. Shonna Cervantes RN. Problem List As Of Date 04/15/2024 Noted Resolved Other disorders of synovium, tendon, and bursa(*01/08/2005 05/30/2015 Acute left-sided low back pain without sciatica*02/08/2005 Ganglion of joint [M67.40] 07/16/2005 09/19/2016 Abdominal pain, right upper quadrant [R10.11] 02/01/2012 Unspecified constipation [K59.00] 02/01/2012 Diverticulosis of colon (without mention of hem* 05/30/2015 Hemorrhage of rectum and anus [K62.5] 09/19/2016 Cough [R05.9] 07/23/2008 02/01/2012 Rectocele [N81.6] 01/05/2011 Acute tracheobronchitis [J20.9] 03/07/2011 02/01/2012 Carpal tunnel syndrome [G56.00] 11/19/2011 09/19/2016 Osteopenia [M85.80] 10/28/2012 Adjustment disorder with anxiety [F43.22] 05/12/2013 Dyslipidemia [E78.5] 03/18/2015 Osteoarthritis of spine with radiculopathy, cer*05/30/2015 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 Psoriasis [L40.9] 05/23/2016 Dry cough [R05.8] 05/23/2016 Skin tear of lower leg without complication [S8*05/23/2016 09/19/2016 Abdominal pain [R10.9] 11/01/2016 05/20/2017 Postmenopausal atrophic vaginitis [N95.2] 11/01/2016 Cystitis [N30.90] 11/01/2016 05/20/2017 Primary osteoarthritis of left knee [M17.12] 05/10/2017 06/05/2017 Irritable bowel syndrome [K58.9] 05/20/2017 Urge incontinence [N39.41] 05/20/2017 Chronic pain of right knee [M25.561, G89.29] 05/20/2017 07/04/2017 OA (osteoarthritis) of knee [M17.9] 06/04/2017 06/05/2017 Status post total knee replacement using cement*07/04/2017 Status post total right knee replacement [Z96.6*09/07/2017 Adjustment insomnia [F51.02] 12/30/2017 Situational depression [F43.21] 12/30/2017 Hypertension, essential [I10] 12/30/2017 Hyperlipidemia, mixed [E78.2] 12/30/2017 Left lower quadrant pain [R10.32] 12/30/2017 Osteoarthritis of left knee [M17.12] 12/30/2017 Urinary frequency [R35.0] 02/03/2018 Chronic rhinitis [J31.0] Chronic obstructive pulmonary disease (HCC) [J4*10/08/2018 Chronic cough [R05.3] 10/08/2018 Sebaceous cyst [L72.3] 10/08/2018 Inflammatory (more content not included)... Normal [facility] [id number] 04-06-2024 [id number] HNO ID: [id number] Author: KATHRYN FLORES PT Service: ? Author Type: Physical Therapist Type: [id number] Filed: 04/06/2024 11:36 Note Text: [facility] Physical Therapy Plan of Care Certification Patient Name: Anaya Wilson : 1940 [facility] #: [id number] Date: 04/06/2024 To: Angeline Monterroso APRN* From Therapist: Kathryn Flores PT RE: Patient Certification/ Recertification Your review, approval and electronic signature are required in order to comply with Payor: MMO MEDICARE / Plan: MMO MEDADVANTAGE HMO / Product Type: HMO / regulations. The identified Physical Therapy PLAN OF CARE for the patient is as follows: M54.50 Acute left-sided low back pain without sciatica PLAN OF CARE: Assessment: Anaya Wilson presents with diagnosis of acute left sided low back pain without sciatica that interferes with standing, walking . The patient presents with impairments in independence in exercise and patient reported outcome measures. PROMIS? (Patient-Reported Outcomes Measurement Information System) scores were reviewed and identified as within normal limits. Prognosis for therapy is Good due to: current objective clinical presentation . The patient will benefit from skilled therapy services to meet the goals established for this plan of care as noted below. Goals for Episode of Care: established 04/06/24 Patient Goals: DC from PT. symptoms have resolved Time Frame for Goals and Treatment : 04/06/24 Planned Interventions, Frequency, and Duration: Current Frequency: 1 visit Duration: 1 visit Total Number of Visits Planned: 1 Planned Treatment Interventions: Therapeutic exercise (13273), Self-assisted management (94294) PLAN FOR NEXT VISIT: DC -- symptoms resolved Patient demonstrates good understanding of plan of care and treatment. The above goals and plan of care were discussed and agreed upon by patient/family. For further details regarding this patient refer to the Physical Therapy electronically documented visit dated 04/06/2024. Provider Attestation I have reviewed the treatment plan for Anaya Wilson, F# [id number] for the period of 04/06/24 -- 04/06/24, established on 04/06/2024. Signature certifies the need for therapy services. Normal [facility] CBC W/Diff, Automatedon 02-0 Absolute Lymph 2.00 X10 3/uL Normal 0.83-4.51 [facility] Comment on above: Performed By: #### L 500.4050, L100.0100 #### [facility] [address] [place], [address] Absolute Neut 6.4 X10 3/uL Normal 2.0-7.7 [facility] Comment on above: Performed By: #### L 500.4050, L100.0100 #### [facility] [address] [place], [address] Basophils/100 WBC (Bld) 0.3 % Normal 0-1 [facility] Comment on above: Performed By: #### L 500.4050, L100.0100 #### [facility] [address] [place], [address] Eosinophils/100 WBC (Bld) 1.2 % Normal 0-5 [facility] Comment on above: Performed By: #### L 500.4050, L100.0100 #### [facility] [address] [place], [address] Erythrocyte distribution width (RBC) [Ratio] 14.3 % Normal 11.6-14.6 [facility] Comment on above: Performed By: #### L 500.4050, L100.0100 #### [facility] [address] [place], [address] Hematocrit (Bld) [Volume fraction] 39.0 % Normal 37-47 [facility] Comment on above: Performed By: #### L 500.4050, L100.0100 #### [facility] [address] [place], [address] Hemoglobin (Bld) [Mass/Vol] 12.4 g/dL Normal 12.0-15.0 [facility] Comment on above: Performed By: #### L 500.4050, L100.0100 #### [facility] [address] [place], [address] IG% 0.500 Normal 0.0-0.9 [facility] Comment on above: Result Comment: IG% - Immature Granulocytes (promyelocytes, myelocytes and metamyelocytes) > 1% indicates that a LEFT SHIFT is Present. Performed By: #### L 500.4050, L100.0100 #### [facility] [address] [place], [address] Lymphocytes/100 WBC (Bld) 21.9 % Normal 19-41 [facility] Comment on above: Performed By: #### L 500.4050, L100.0100 #### [facility] [address] [place], [address] MCH (RBC) [Entitic mass] 29.9 pg Normal 27.0-32.0 [facility] Comment on above: Performed By: #### L 500.4050, L100.0100 #### [facility] [address] [place], [address] MCHC (RBC) [Mass/Vol] 31.8 g/dL Low 32-36 [facility] Comment on above: Performed By: #### L 500.4050, L100.0100 #### [facility] [address] [place], [address] MCV (RBC) [Entitic vol] 94.0 fL Normal 81-99 [facility] Comment on above: Performed By: #### L 500.4050, L100.0100 #### [facility] [address] [place], [address] Monocytes/100 WBC (Bld) 6.7 % Normal 0-10 [facility] Comment on above: Performed By: #### L 500.4050, L100.0100 #### [facility] [address] [place], [address] Neutrophils/100 WBC (Bld) 69.4 % Normal 47-70 [facility] Comment on above: Performed By: #### L 500.4050, L100.0100 #### [facility] [address] [place], [address] Nucleated RBC (Bld) [#/Vol] 0 10*3/uL Normal 0-5 [facility] Comment on above: Performed By: #### L 500.4050, L100.0100 #### [facility] [address] [place], [address] Platelet mean volume (Bld) [Entitic vol] 10.8 fL Normal 6.2-12.0 [facility] Comment on above: Performed By: #### L 500.4050, L100.0100 #### [facility] [address] [place], [address] Platelets (Bld) [#/Vol] 222 10*3/uL Normal 150-450 [facility] Comment on above: Performed By: #### L 500.4050, L100.0100 #### [facility] [address] [place], [address] RBC (Bld) [#/Vol] 4.15 10*6/uL Low 4.2-5.4 [facility] Comment on above: Performed By: #### L 500.4050, L100.0100 #### [facility] [address] [place], [address] RDW SD 48.5 fl High 35.1-43.9 [facility] Comment on above: Performed By: #### L 500.4050, L100.0100 #### [facility] [address] [place], [address] WBC (Bld) [#/Vol] 9.2 10*3/uL Normal 4.4-11.0 [facility] Comment on above: Performed By: #### L 500.4050, L100.0100 #### [facility] [address] [place], [address] CNTHERAPYon 04-06-2024 CNTHERAPY OT/PT/Speech Visit ( PTWS) -- ANAYA WILSON ([id number]) 1940 F Date Time Provider Department 04/06/24 11:00 AM KATHRYN FLORES Date Time Provider Department Center 04/06/2024 11:00 AM [id number] for Visit: PT Eval [747] Visit Diagnosis:Acute left-sided low back pain without sciatica [M54.50] Allergies As of Date: 04/06/2024 Noted Allergy Reaction CAFFEINE 12/01/2004 CODEINE 12/01/2004 DARVOCET A500 (PROPOXYPHENE N-REINALDO*12/01/2004 11 - Vomiting DEMEROL (MEPERIDINE (PF)) 07/07/2015 11 - Vomiting ENTEX (PHENYLEPHRINE-GUAIFENESIN ) 12/01/2004 EPHEDRINE 12/01/2004 14 - Other: See Comments Comments: Heart palpitations GRISEOFULVIN 12/01/2004 MILK CONTAINING PRODUCTS (DAIRY) 11/15/2016 5 - Intolerance Comments: Nasal stuffiness TRAMADOL 12/21/2011 14 - Other: See Comments Comments: Nausea, vomiting, dry heaves after carpal tunnel surgery VICODIN (HYDROCODONE-ACETAMINOPHE* 07/07/2015 9 - Itching ZOLOFT (SERTRALINE HCL) 09/25/2006 1 - Mental Status Change Comments: Increased anxiety and feeling of depression. Started in 2005, not noted then Date Reviewed: 03/25/2024 Reviewed by: Angeline Monterroso APRN.SHIP KEEPER - Fully Assessed Prescriptions as of 04/06/2024 - donepezil (ARICEPT) 10 mg tablet Take 1 tablet by mouth daily at bedtime. - cyclobenzaprine (FLEXERIL) 5 mg tablet Take 1 tablet by mouth three times a day as needed. - ketoconazole (NIZORAL) 2 % cream Apply to affected area two times a day. - amitriptyline (ELAVIL) 10 mg tablet Take 1 tablet by mouth daily at bedtime. - loratadine (CLARITIN) 10 mg tablet Take 1 tablet by mouth once daily. - methotrexate 2.5 mg tablet TAKE 5 TABLET(S) ORAL ONCE A WEEK START 4 TABS ONCE A WEEK FOR 2 WEEKS - hydrocortisone (ANUSOL-HC) 25 mg suppository 1 Suppository by RECTAL route two times a day as needed (hemorrhoids/rectal pain). - losartan (COZAAR) 25 mg tablet Take 1 tablet by mouth once daily. - FLUoxetine (PROZAC) 10 mg capsule Take 1 capsule by mouth once daily. - famotidine (PEPCID) 10 mg tablet Take 1 tablet by mouth two times a day. - Azelaic Acid (FINACEA) 15 % gel Apply to affected area once daily. - fluorometholone (FML LIQUID FILM) 0.1 % ophthalmic suspension Use 1 Drop in both eyes once daily. - FOLIC ACID ORAL Take by mouth. Meds Comments as of 07/12/2019: 09/07/16: Not taking motrin or naprosyn. MS Does not take Naprosyn or Ibuprofen [facility] -May 27, 2019 Patient currently taking her prescription medications as prescriped. Esperanza Singleton RN 2019 Pt. stating has not been taking polyethylene glycol. N. Cervantes, RN. Normal [facility] Metabolic Prof ilon 04-06-2024 Albumin [Mass/Vol] 3.4 g/dL Normal 3.2-5.0 [facility] Comment on above: Performed By: #### L 500.4050, L100.0100 #### [facility] [address] [place], [address] Albumin/Globulin [Mass ratio] 1.1 {ratio} Normal 0.9-2.4 [facility] Comment on above: Performed By: #### L 500.4050, L100.0100 #### [facility] [address] [place], [address] ALK P 119 U/L High 45-117 [facility] Comment on above: Performed By: #### L 500.4050, L100.0100 #### [facility] [address] [place], [address] ALT [Catalytic activity/Vol] 29 U/L Normal 13-56 [facility] Comment on above: Performed By: #### L 500.4050, L100.0100 #### [facility] [address] [place], [address] AST [Catalytic activity/Vol] 25 U/L Normal 15-37 [facility] Comment on above: Performed By: #### L 500.4050, L100.0100 #### [facility] [address] [place], [address] Bilirubin [Mass/Vol] 0.60 mg/dL Normal 0.20-1.00 [facility] Comment on above: Result Comment: For patients on eltrombopag therapy, use of Dimension Quail TBIL is not recommended. Performed By: #### L 500.4050, L100.0100 #### [facility] [address] [place], [address] BUN/CRE 14.4 RATIO Normal 10-20 [facility] Comment on above: Performed By: #### L 500.4050, L100.0100 #### [facility] [address] [place], [address] CA,Total 9.1 mg/dL Normal 8.5-10.1 [facility] Comment on above: Performed By: #### L 500.4050, L100.0100 #### [facility] [address] [place], [address] Chloride [Moles/Vol] 102 mmol/L Normal 98-107 [facility] Comment on above: Performed By: #### L 500.4050, L100.0100 #### [facility] [address] [place], [address] CO2 [Moles/Vol] 27.0 mmol/L Normal 21.0-32.0 [facility] Comment on above: Performed By: #### L 500.4050, L100.0100 #### [facility] [address] [place], [address] Creatinine [Mass/Vol] 0.62 mg/dL Normal 0.55-1.02 [facility] Comment on above: Result Comment: The validity of the calculated GFR GFRAA in patients over 70 years has not been determined. Clinical correlation is essential. Performed By: #### L 500.4050, L100.0100 #### [facility] [address] [place], [address] EST GFR - AA 117 mL/min Normal >60 [facility] Comment on above: Result Comment: Afri can [place] GFR Calc Performed By: #### L 500.4050, L100.0100 #### [facility] [address] [place], [address] GAP 7 Normal 5-15 [facility] Comment on above: Performed By: #### L 500.4050, L100.0100 #### [facility] [address] [place], [address] GFR/1.73 sq M.predicted among non-blacks MDRD (S/P/Bld) [Vol rate/Area] 97 mL/min/{1.73_m2} Normal >60 [facility] Comment on above: Result Comment: Non- GFR Calc Performed By: #### L 500.4050, L100.0100 #### [facility] [address] [place], [address] Globulin (S) [Mass/Vol] 3.1 g/dL Normal 2.2-4.2 [facility] Comment on above: Performed By: #### L 500.4050, L100.0100 #### [facility] [address] [place], [address] Glucose [Mass/Vol] 100 mg/dL Normal 74-106 [facility] Comment on above: Result Comment: Fast ing Glucose result from 100 to 125 mg/dL suggests IMPAIRED HOMEOSTASIS per A.D.A. criteria. Performed By: #### L 500.4050, L100.0100 #### [facility] [address] [place], [address] Potassium [Moles/Vol] 4.2 mmol/L Normal 3.5-5.1 [facility] Comment on above: Performed By: #### L 500.4050, L100.0100 #### [facility] [address] [place], [address] Sodium [Moles/Vol] 136 mmol/L Normal 136-145 [facility] Comment on above: Performed By: #### L 500.4050, L100.0100 #### [facility] [address] [place], [address] T PROT 6.5 g/dL Normal 6.4-8.2 [facility] Comment on above: Performed By: #### L 500.4050, L100.0100 #### [facility] [address] [place], [address] Urea nitrogen [Mass/Vol] 9 mg/dL Normal 7-18 [facility] Comment on above: Performed By: #### L 500.4050, L100.0100 #### [facility] [address] [place], [address] CNOVon 03-25-2024 CNOV Office Visit (FAMPWS ) -- ANAYA WILSON ([id number]) 1940 Sheryl Whittaker [facility] Date Time Provider Department 03/25/24 11:00 AM ANGELINE MONTERROSO [facility] During your visit today, we recorded the following information about you: Pulse Respiration Blood pressure Weight 53/minute 16/minute 130/64 55.9 kg Angeline Monterroso APRN.SHIP KEEPER 03/25/2024 11:35 AM Signed Chief Complaint Patient presents with: ER F/U: Left side abd pain, muscle strain HPI Anaya Wilson is a 84 year old female who presents here today for Above Complaints.. Was seen in the ER at [facility] on 03/23 (2 days ago) for left side pain-was dx with muscle strain and given a dx of muscle strain-Flexeril has been helpful. Had been shoveling snow a couple days prior. Did take Flexeril last evening as well as Tylenol, this has been helpful. Interested in doing PT. Past medical history, appointments, medications, allergies reviewed. 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 Dementia (HCC) Diverticulosis of colon (without mention of hemorrhage) Dry cough 05/23/2016 Ganglion of joint 07/16/2005 Generalized osteoarthrosis, unspecified site Hemorrhage of gastrointestinal tract, unspecified Hemorrhage of rectum and anus Hypertension Infection of left eye Irritable bowel syndrome Osteomalacia, unspecified Other and unspecified hyperlipidemia Pneumonia, organism unspecified(486) PONV (postoperative nausea and vomiting) Psoriatic arthritis (HCC) Rectocele 01/05/2011 Skin tear of lower leg without complication 05/23/2016 Sprain of unspecified site of sacroiliac region Unspecified constipation Urge incontinence mild Previous Surgical History PAST SURGICAL HISTORY Procedure Laterality Date ARTHRP KNE CONDYLEANDPLATU MEDIALANDLAT COMPARTMENTS Right 06/03/2017 Knee replacement, total COLONOSCOPY 05/10/2022 rectal mass COLONOSCOPY FLX DX W/COLLJ SPEC WHEN PFRMD 04/20/2002 Colonoscopy COLONOSCOPY FLX DX W/COLLJ SPEC WHEN PFRMD 07/25/2011 Colonoscopy EYE SURGERY HX JOINT REPLACEMENT HX NEUROPLASTY AND/TRANSPOS MEDIAN NRV CARPAL TUNNE 1979 Carpal tunnel decomp b/l hands NEUROPLASTY AND/TRANSPOS MEDIAN NRV CARPAL TUNNE 12/18/2011 RIGHT PAST SURGICAL HISTORY OF Left laser eye surgery for glaucoma SIGMOIDOSCOPY FLX DX W/COLLJ SPEC BR/WA IF PFRMD 06/23/2007 TOTAL ABDOMINAL HYSTERECT W/WO RMVL TUBE OVARY 1988 RUBI/BSO for fibroids and bleeding TOTAL KNEE REPLACEMENT Left 03/28/2020 VAGINAL HYSTERECTOMY Family History FAMILY HISTORY Problem Relation Age of Onset Heart Mother CHF Cancer Father prostate Psychiatry Father Cancer Brother No Known Problems Daughter No Known Problems Daughter No Known Problems Daughter Breast Cancer Maternal Aunt Colon Cancer No Family History Patient Allergies ALLERGIES Allergen Reactions Caffeine Codeine Darvocet A500 [Prop* Vomiting Demerol [Meperidine* Vomiting Entex [Phenylephrin* Ephedrine Other: See Comments Heart palpitations Griseofulvin Milk Containing Pro* Intolerance Nasal stuffiness Tramadol Other: See Comments Nausea, vomiting, dry heaves after carpal tunnel surgery Vicodin [Hydrocodon* Itching Zoloft [Sertraline * Mental Status Change Increased anxiety and feeling of depression. Started in 2005, not noted then Current Medications Current Outpatient Medications on File Prior to Visit Medication Sig cyclobenzaprine (FLEXERIL) 5 mg tablet Take 1 tablet by mouth two times a day as needed for up to 5 days. ketoconazole (NIZORAL) 2 % cream Apply to affected area two times a day. amitriptyline (ELAVIL) 10 mg tablet Take 1 tablet by mouth daily at bedtime. loratadine (CLARITIN) 10 mg tablet Take 1 tablet by mouth once daily. methotrexate 2.5 mg tablet TAKE 5 TABLET(S) ORAL ONCE A WEEK START 4 TABS ONCE A WEEK FOR 2 WEEKS hydrocortisone (ANUSOL-HC) 25 mg suppository 1 Suppository by RECTAL route two times a day as needed (hemorrhoids/rectal pain). losartan (COZAAR) 25 mg tablet Take 1 tablet by mouth once daily. FLUoxetine (PROZAC) 10 mg capsule Take 1 capsule by mouth once daily. donepezil (ARICEPT) 10 mg tablet Take 1 tablet by mouth daily at bedtime. famotidine (PEPCID) 10 mg tablet Take 1 tablet by mouth two times a day. Azelaic Acid (FINACEA) 15 % gel Apply to affected area once daily. fluorometholone (FML LIQUID FILM) 0.1 % ophthalmic suspension Use 1 Drop in both eyes once daily. FOLIC ACID ORAL Take by mouth. No current facility-administered medications on file prior to visit. Social History Social History Tobacco Use Smoking status: Never Smokeless toba (more content not included)... Normal [facility] 03-25-2024 [facility] Telephone (INTMWS) -- ANAYA WILSON ([id number]) 1940 F [address] [place]* Date Time Provider Department 03/25/24 EDENILSON NICHOLSON INTWS During your visit today, we recorded the following information about you: Makayla Ochoa LPN 03/25/2024 11:39 AM Signed Electronic PA rec'd and completed for cyclobenzapine. This was approved. Prior authorization approved Payer: [employer] [phone] Note from payer: CaseId:[id number];Status:Margaret roved;Review Type:Prior Auth;Coverage Start Date:02/24/2024;Coverage End Date:03/25/2025; Approval Details Authorized from February 24, 2024 to March 25, 2025 Electronic appeal: Not supported View History Pharmacy Benefits Open Encounter ANAYA WILSON - [facility] ([facility]) ([employer]) Covered: Retail, Mail Order Unknown: Specialty, Long-Term Care BIN: [id number] : 1940 Group ID: [id number] PCN: Legal sex: F Group name: MEDICARE ADVANTAGE Address: [address] [facility] [address] Medication Being Authorized cyclobenzaprine (FLEXERIL) 5 mg tablet Take 1 tablet by mouth three times a day as needed. Dispense: 30 tablet Refills: 1 Start: 03/25/2024 Class: Normal Diagnoses: Acute left-sided low back pain without sciatica This order has been released to its destination. To be filled at: e- [id number] [place] [address] - [address] [facility] [phone] Allergies As of Date: 03/25/2024 Noted Allergy Reaction CAFFEINE 12/01/2004 CODEINE 12/01/2004 DARVOCET A500 (PROPOXYPHENE N-REINALDO*12/01/2004 11 - Vomiting DEMEROL (MEPERIDINE (PF)) 07/07/2015 11 - Vomiting ENTEX (PHENYLEPHRINE-GUAIFENESIN ) 12/01/2004 EPHEDRINE 12/01/2004 14 - Other: See Comments Comments: Heart palpitations GRISEOFULVIN 12/01/2004 MILK CONTAINING PRODUCTS (DAIRY) 11/15/2016 5 - Intolerance Comments: Nasal stuffiness TRAMADOL 12/21/2011 14 - Other: See Comments Comments: Nausea, vomiting, dry heaves after carpal tunnel surgery VICODIN (HYDROCODONE-ACETAMINOPHE* 07/07/2015 9 - Itching ZOLOFT (SERTRALINE HCL) 09/25/2006 1 - Mental Status Change Comments: Increased anxiety and feeling of depression. Started in 2005, not noted then Date Reviewed: 03/25/2024 Reviewed by: Angeline Monterroso APRN.SHIP KEEPER - Fully Assessed Reason for Visit: Insurance Authorization [[id number]] Prescriptions as of 03/25/2024 - cyclobenzaprine (FLEXERIL) 5 mg tablet Take 1 tablet by mouth three times a day as needed. - ketoconazole (NIZORAL) 2 % cream Apply to affected area two times a day. - amitriptyline (ELAVIL) 10 mg tablet Take 1 tablet by mouth daily at bedtime. - loratadine (CLARITIN) 10 mg tablet Take 1 tablet by mouth once daily. - methotrexate 2.5 mg tablet TAKE 5 TABLET(S) ORAL ONCE A WEEK START 4 TABS ONCE A WEEK FOR 2 WEEKS - hydrocortisone (ANUSOL-HC) 25 mg suppository 1 Suppository by RECTAL route two times a day as needed (hemorrhoids/rectal pain). - losartan (COZAAR) 25 mg tablet Take 1 tablet by mouth once daily. - FLUoxetine (PROZAC) 10 mg capsule Take 1 capsule by mouth once daily. - donepezil (ARICEPT) 10 mg tablet Take 1 tablet by mouth daily at bedtime. - famotidine (PEPCID) 10 mg tablet Take 1 tablet by mouth two times a day. - Azelaic Acid (FINACEA) 15 % gel Apply to affected area once daily. - fluorometholone (FML LIQUID FILM) 0.1 % ophthalmic suspension Use 1 Drop in both eyes once daily. - FOLIC ACID ORAL Take by mouth. Meds Comments as of 07/12/2019: 09/07/16: Not taking motrin or naprosyn. MS Does not take Naprosyn or Ibuprofen [facility] -May 27, 2019 Patient currently taking her prescription medications as prescriped. Esperanza Singleton RN 2019 Pt. stating has not been taking polyethylene glycol. Shonna Cervantes RN. Problem List As Of Date 03/25/2024 Noted Resolved Other disorders of synovium, tendon, and bursa(*01/08/2005 05/30/2015 Chronic midline low back pain without sciatica *02/08/2005 Ganglion of joint [M67.40] 07/16/2005 09/19/2016 Abdominal pain, right upper quadrant [R10.11] 02/01/2012 Unspecified constipation [K59.00] 02/01/2012 Diverticulosis of colon (without mention of hem* 05/30/2015 Hemorrhage of rectum and anus [K62.5] 09/19/2016 Cough [R05.9] 07/23/2008 02/01/2012 Rectocele [N81.6] 01/05/2011 Acute tracheobronchitis [J20.9] 03/07/2011 02/01/2012 Carpal tunnel syndrome [G56.00] 11/19/2011 09/19/2016 Osteopenia [M85.80] 10/28/2012 Adjustment disorder with anxiety [F43.22] 05/12/2013 Dyslipidemia [E78.5] 03/18/2015 Osteoarthritis of spine with radiculopathy, cer*05/30/2015 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 [facility] HNO ID: [id number] Author: HUSSAIN VAZQUEZ RT(R) Service: ? Author Type: Technologist Type: Allied Health Filed: 03/23/2024 02:34 Note Text: Radiology Service Progress Note DATE OF SERVICE: March 23, 2024 TIME: 2:33 AM PATIENT IDENTITY VERIFICATION COMPLETED USING TWO (2) STANDARD IDENTIFIERS: Name and Date of confirmed by patient verbally and Name and Date of confirmed by identification band. FALL SCREENING: Has the patient had 2 falls in the last year or 1 fall with injury or currently using an Ambulatory Assistive Device (Walker, Cane, Wheelchair, Crutches, etc.)? Emergency Room Patient: Screened in ED PATIENT GENDER DATA: Assigned female at . status: : No status: NO. PATIENT RELEVANT IMPLANT DATA REVIEWED: Yes PATIENT PRESENTS WITH AN IMPLANTABLE OR ATTACHED PANTOGRAPH I ENGRAVER: No ALLERGIES: Reviewed and unchanged CONTRAST ALLERGY: NO. EXAM: CT -CONTRAST INDUCED NEPHROPATHY RISK FACTORS: Patient age > 60 years CREATININE: Creatinine Date Value Ref Range Status 03/23/2024 0.64 0.58 - 0.96 mg/dL Final 09/23/2023 0.60 0.58 - 0.96 mg/dL Final 05/08/2023 0.61 0.58 - 0.96 mg/dL Final Estimated Glomerular Filtration Rate Date Value Ref Range Status 03/23/2024 87 >=60 mL/min/1.73m? Final Comment: Estimated Glomerular Filtration Rate (eGFR) is calculated using the 2020 CKD-EPI creatinine equation. This equation utilizes serum creatinine, sex, and age as parameters. The creatinine assay has traceable calibration to isotope dilution-mass spectrometry. Refer to KDIGO guidelines for clinical interpretation. In patients with unstable renal function, e.g. those with acute kidney injury, the eGFR may not accurately reflect actual GFR. eGFR- Date Value Ref Range Status 04/19/2021 >60 Final P.O.C.T. RESULTS: POC done: Yes, See Lab Tab March 23, 2024 TREATMENT: N/A PERIPHERAL IV DATA: Inpatient - refer to [facility] documentation RADIOLOGY DEPARTMENT: CT; Exam(s) Completed: Abdomen/Pelvis SIGNATURE: RT Jennifer(R) PATIENT NAME: Anaya Wilson DATE: March 23, 2024 TIME: 2:33 AM Normal [facility] CBC W Auto Differential pane l (Bld)on 03-23-2024 Basophils (Bld) [#/Vol] 0.03 10*3/uL Normal <0.11 [facility] Comment on above: Order Comment: Speci men Type: BLOOD SPECIMENOrdering Facility: [facility] Address: [address] [place] [address] Performed By: #### 5 7021-8 ####[facility]ORATORYCLIA [id number] [place] [address] [place] Basophils/100 WBC (Bld) 0.3 % Normal [facility] Comment on above: Order Comment: Speci men Type: BLOOD SPECIMENOrdering Facility: [facility] Address: [address] [place] [address] Performed By: #### 5 7021-8 ####[facility]ORATORYCLIA [id number] [address] Differential cell count method Nom (Bld) Auto Normal [facility] Comment on above: Order Comment: Speci men Type: BLOOD SPECIMENOrdering Facility: [facility] Address: [address] [place] [address] Performed By: #### 5 7021-8 ####[facility]ORATORYCLIA [id number] [place] [address] [place] Eosinophils (Bld) [#/Vol] 0.13 10*3/uL Normal <0.46 [facility] Comment on above: Order Comment: Speci men Type: BLOOD SPECIMENOrdering Facility: [facility] Address: [address] [place] [address] Performed By: #### 5 7021-8 ####[facility]ORATORYCLIA [id number] [address] Eosinophils/100 WBC (Bld) 1.3 % Normal [facility] Comment on above: Order Comment: Speci men Type: BLOOD SPECIMENOrdering Facility: [facility] Address: [address] [place] [address] Performed By: #### 5 7021-8 ####[facility]ORATORYCLIA [id number] [address] [place] Erythrocyte distribution width (RBC) [Ratio] 14.0 % Normal 11.5-15.0 [facility] Comment on above: Order Comment: Speci men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 [place] [address] [facility] [place] Color (U) Yellow Normal Yellow [facility] Comment on above: Order Comment: Speci men Type: URINE SPECIMENOrdering Facility: [facility] Address: [address] [place] [address] Performed By: #### 2 4356-8 ####[facility] LABORATORYCLIA [id number] [place] [address] [facility] [place] Epithelial cells LM.HPF (Urine sed) [#/Area] Few Normal [facility] Comment on above: Order Comment: Speci men Type: URINE SPECIMENOrdering Facility: [facility] Address: [address] [place] [address] Performed By: #### 2 4356-8 ####[facility] LABORATORYCLIA [id number] [address] OF [place] Glucose Test strip (U) [Mass/Vol] Negative Normal Negative [facility] Comment on above: Order Comment: Speci men Type: URINE SPECIMENOrdering Facility: [facility] Address: [address] [place] [address] Performed By: #### 2 4356-8 ####[facility] LABORATORYCLIA [id number] [address] [place] Hemoglobin Ql (U) Negative Normal Negative [facility] Comment on above: Order Comment: Speci men Type: URINE SPECIMENOrdering Facility: [facility] Address: [address] [place] [address] Performed By: #### 2 4356-8 ####[facility]ORATORYCLIA [id number] [place] [address] [place] Ketones Ql (U) Negative Normal Negative [facility] Comment on above: Order Comment: Speci men Type: URINE SPECIMENOrdering Facility: [facility] Address: [address] [place] [address] Performed By: #### 2 4356-8 ####[facility] LABORATORYCLIA [id number] [place] [place] [address] Leukocyte esterase Test strip Ql (U) Negative Normal Negative [facility] Comment on above: Order Comment: Speci men Type: URINE SPECIMENOrdering Facility: [facility] Address: [address] [place] [address] Performed By: #### 2 4356-8 ####[facility] LABORATORYCLIA [id number] [address] [place] Nitrite Ql (U) Negative Normal Negative [facility] Comment on above: Order Comment: Speci men Type: URINE SPECIMENOrdering Facility: [facility] Address: [address] [place] [address] Performed By: #### 2 4356-8 ####[facility] LABORATORYCLIA [id number] [address] [place] pH (U) 8.0 [pH] Normal 5.0-8.0 [facility] Comment on above: Order Comment: Speci men Type: URINE SPECIMENOrdering Facility: [facility] Address: [address] [place] [address] Performed By: #### 2 4356-8 ####[facility]ORATORYCLIA [id number] [address] STATES [facility] Protein (U) [Mass/Vol] Negative Normal Negative [facility] Comment on above: Order Comment: Speci men Type: URINE SPECIMENOrdering Facility: [facility] Address: [address] [place] [address] Performed By: #### 2 4356-8 ####[facility] LABORATORYCLIA [id number] [place] [address] [place] RBC LM.HPF (Urine sed) [#/Area] 0-3 /HPF Normal 0-3 /HPF [facility] Comment on above: Order Comment: Speci men Type: URINE SPECIMENOrdering Facility: [facility] Address: [address] [place] [address] Performed By: #### 2 4356-8 ####[facility] LABORATORYCLIA [id number] [place] [address] [place] Specific gravity (U) [Rel density] 1.010 Normal 1.005-1.030 [facility] Comment on above: Order Comment: Speci men Type: URINE SPECIMENOrdering Facility: [facility] Address: [address] [place] [address] Performed By: #### 2 4356-8 ####[facility] LABORATORYCLIA [id number] [address] Urobilinogen Ql (U) 0.2 EU/dL Normal 0.2-1.0 EU/dL [facility] Comment on above: Order Comment: Speci men Type: URINE SPECIMENOrdering Facility: [facility] Address: [address] [place] [address] Performed By: #### 2 4356-8 ####[facility]ORATORYCLIA [id number] [address] WBC LM.HPF (Urine sed) [#/Area] 0-5 /HPF Normal 0-5 /HPF [facility] Comment on above: Order Comment: Speci men Type: URINE SPECIMENOrdering Facility: [facility] Address: [address] [place] [address] Performed By: #### 2 4356-8 ####[facility] LABORATORYCLIA [id number] [address] CBC W/Diff, Automatedon 12-0 -2023 Absolute Lymph 2.00 X10 3/uL Normal 0.83-4.51 [facility] Comment on above: Performed By: #### L 100.0100, L500.4050 #### [facility] [address] [facility] [address] Absolute Neut 5.5 X10 3/uL Normal 2.0-7.7 [facility] Comment on above: Performed By: #### L 100.0100, L500.4050 #### [facility] [address] [place], [address] Basophils/100 WBC (Bld) 0.6 % Normal 0-1 [facility] Comment on above: Performed By: #### L 100.0100, L500.4050 #### [facility] [address] [place], [address] Eosinophils/100 WBC (Bld) 2.1 % Normal 0-5 [facility] Comment on above: Performed By: #### L 100.0100, L500.4050 #### [facility] [address] [place], [address] Erythrocyte distribution width (RBC) [Ratio] 15.0 % High 11.6-14.6 [facility] Comment on above: Performed By: #### L 100.0100, L500.4050 #### [facility] [address] [place], [address] Hematocrit (Bld) [Volume fraction] 39.7 % Normal 37-47 [facility] Comment on above: Performed By: #### L 100.0100, L500.4050 #### [facility] [address] [place], [address] Hemoglobin (Bld) [Mass/Vol] 12.9 g/dL Normal 12.0-15.0 [facility] Comment on above: Performed By: #### L 100.0100, L500.4050 #### [facility] [address] [place], [address] IG% 0.700 Normal 0.0-0.9 [facility] Comment on above: Result Comment: IG% - Immature Granulocytes (promyelocytes, myelocytes and metamyelocytes) > 1% indicates that a LEFT SHIFT is Present. Performed By: #### L 100.0100, L500.4050 #### [facility] [address] [place], [address] Lymphocytes/100 WBC (Bld) 22.9 % Normal 19-41 [facility] Comment on above: Performed By: #### L 100.0100, L500.4050 #### [facility] [address] [place], [address] MCH (RBC) [Entitic mass] 29.9 pg Normal 27.0-32.0 [facility] Comment on above: Performed By: #### L 100.0100, L500.4050 #### [facility] [address] [place], [address] MCHC (RBC) [Mass/Vol] 32.5 g/dL Normal 32-36 [facility] Comment on above: Performed By: #### L 100.0100, L500.4050 #### [facility] [address] [place], [address] MCV (RBC) [Entitic vol] 91.9 fL Normal 81-99 [facility] Comment on above: Performed By: #### L 100.0100, L500.4050 #### [facility] [address] [place], [address] Monocytes/100 WBC (Bld) 10.6 % High 0-10 [facility] Comment on above: Performed By: #### L 100.0100, L500.4050 #### [facility] [address] [place], [address] Neutrophils/100 WBC (Bld) 63.1 % Normal 47-70 [facility] Comment on above: Performed By: #### L 100.0100, L500.4050 #### [facility] [address] [place], [address] Nucleated RBC (Bld) [#/Vol] 0 10*3/uL Normal 0-5 [facility] Comment on above: Performed By: #### L 100.0100, L500.4050 #### [facility] [address] [place], [address] Platelet mean volume (Bld) [Entitic vol] 11.1 fL Normal 6.2-12.0 [facility] Comment on above: Performed By: #### L 100.0100, L500.4050 #### [facility] [address] [place], [address] Platelets (Bld) [#/Vol] 196 10*3/uL Normal 150-450 [facility] Comment on above: Performed By: #### L 100.0100, L500.4050 #### [facility] [address] [place], [address] RBC (Bld) [#/Vol] 4.32 10*6/uL Normal 4.2-5.4 [facility] Comment on above: Performed By: #### L 100.0100, L500.4050 #### [facility] [address] [place], [address] RDW SD 50.1 fl High 35.1-43.9 [facility] Comment on above: Performed By: #### L 100.0100, L500.4050 #### [facility] [address] [place], [address] WBC (Bld) [#/Vol] 8.7 10*3/uL Normal 4.4-11.0 [facility] Comment on above: Performed By: #### L 100.0100, L500.4050 #### [facility] [address] [place], [address] Comprehensive Met[facility] 02-05-2024 Albumin [Mass/Vol] 3.1 g/dL Low 3.2-5.0 [facility] Comment on above: Performed By: #### L 100.0100, L500.4050 #### [facility] [address] [place], [address] Albumin/Globulin [Mass ratio] 1.0 {ratio} Normal 0.9-2.4 [facility] Comment on above: Performed By: #### L 100.0100, L500.4050 #### [facility] [address] [place], [address] ALK P 126 U/L High 45-117 [facility] Comment on above: Performed By: #### L 100.0100, L500.4050 #### [facility] [address] [place], [address] ALT [Catalytic activity/Vol] 28 U/L Normal 13-56 [facility] Comment on above: Performed By: #### L 100.0100, L500.4050 #### [facility] [address] [place], [address] AST [Catalytic activity/Vol] 24 U/L Normal 15-37 [facility] Comment on above: Performed By: #### L 100.0100, L500.4050 #### [facility] [address] [place], [address] Bilirubin [Mass/Vol] 0.60 mg/dL Normal 0.20-1.00 [facility] Comment on above: Result Comment: For patients on eltrombopag therapy, use of Dimension Quail TBIL is not recommended. Performed By: #### L 100.0100, L500.4050 #### [facility] [address] [place], [address] BUN/CRE 21.7 RATIO High 10-20 [facility] Comment on above: Performed By: #### L 100.0100, L500.4050 #### [facility] [address] [place], [address] CA,Total 9.0 mg/dL Normal 8.5-10.1 [facility] Comment on above: Performed By: #### L 100.0100, L500.4050 #### [facility] [address] [place], [address] Chloride [Moles/Vol] 106 mmol/L Normal 98-107 [facility] Comment on above: Performed By: #### L 100.0100, L500.4050 #### [facility] [address] [place], [address] CO2 [Moles/Vol] 30.0 mmol/L Normal 21.0-32.0 [facility] Comment on above: Performed By: #### L 100.0100, L500.4050 #### [facility] [address] [place], [address] Creatinine [Mass/Vol] 0.60 mg/dL Normal 0.55-1.02 [facility] Comment on above: Result Comment: The validity of the calculated GFR GFRAA in patients over 70 years has not been determined. Clinical correlation is essential. Performed By: #### L 100.0100, L500.4050 #### [facility] [address] [place], [address] EST GFR - AA 123 mL/min Normal >60 [facility] Comment on above: Result Comment: Afri can [place] GFR Calc Performed By: #### L 100.0100, L500.4050 #### [facility] [address] [place], [address] GAP 4 Low 5-15 [facility] Comment on above: Performed By: #### L 100.0100, L500.4050 #### [facility] [address] [place], [address] GFR/1.73 sq M.predicted among non-blacks MDRD (S/P/Bld) [Vol rate/Area] 101 mL/min/{1.73_m2} Normal >60 [facility] Comment on above: Result Comment: Non- GFR Calc Performed By: #### L 100.0100, L500.4050 #### [facility] [address] [place], [address] Globulin (S) [Mass/Vol] 3.1 g/dL Normal 2.2-4.2 [facility] Comment on above: Performed By: #### L 100.0100, L500.4050 #### [facility] [address] [place], [address] Glucose [Mass/Vol] 96 mg/dL Normal 74-106 [facility] Comment on above: Performed By: #### L 100.0100, L500.4050 #### [facility] [address] [place], [address] Potassium [Moles/Vol] 4.2 mmol/L Normal 3.5-5.1 [facility] Comment on above: Performed By: #### L 100.0100, L500.4050 #### [facility] [address] [place], [address] Sodium [Moles/Vol] 139 mmol/L Normal 136-145 [facility] Comment on above: Performed By: #### L 100.0100, L500.4050 #### [facility] [address] [place], [address] T PROT 6.2 g/dL Low 6.4-8.2 [facility] Comment on above: Performed By: #### L 100.0100, L500.4050 #### [facility] [address] [place], [address] Urea nitrogen [Mass/Vol] 13 mg/dL Normal 7-18 [facility] Comment on above: Performed By: #### L 100.0100, L500.4050 #### [facility] [address] [place], [address] CNOVon 01-25-2024 CNOV Office Visit (UCWSTR ) -- NAAYA WILSON ([id number]) 1940 [address] Date Time Provider Department 01/25/24 11:30 AM AMERICA MENDEZ [facility] During your visit today, we recorded the following information about you: Temperature Pulse Respiration Blood pressure 97.5 degrees 63/minute 18/minute 146/82 Weight 55 kg America Mendez APRN.SHIP KEEPER 01/25/2024 11:51 AM Signed This note was created using Task Messenger. Subjective Anaya Wilson is a 83 year old female. HPI Patient complains of a sore in her mouth for the last day. She otherwise denies any nausea vomiting or fever. She is worried there might be an infection and wondering whether she might need antibiotics. Review of Systems As above Objective BP 146/82 Pulse 63 Temp 36.4 ?C (97.5 ?F) (Tympanic) Resp 18 Wt 55 kg (121 lb 4.1 oz) SpO2 97% BMI 25.34 kg/m? Physical Exam Vitals and nursing note reviewed. Constitutional: General: She is not in acute distress. Appearance: Normal appearance. She is not ill-appearing. HENT: Head: Normocephalic. Mouth/Throat: Mouth: Mucous membranes are moist. Comments: In the region of tooth 27 there is a small sore on the oral tissue with no surrounding erythema or drainage noted. Eyes: Conjunctiva/sclera: Conjunctivae normal. Pulmonary: Effort: Pulmonary effort is normal. Musculoskeletal: General: Normal range of motion. Cervical back: Normal range of motion. Skin: General: Skin is warm and dry. Neurological: General: No focal deficit present. Mental Status: She is alert. Psychiatric: Mood and Affect: Mood normal. Behavior: Behavior normal. Assessment and Plan ASSESSMENT/PLAN: 1. Mouth sore - ICD9: 528.9, ICD10: K13.79 Discussed with the patient that I do not see any obvious signs of infection and I did not feel that antibiotics are necessary at this time. Discussed with patient that she could use [id number] numbing medication as needed for discomfort. I recommended that she does follow-up closely with either her PCP or dentist and return if symptoms seem to be worsening. America Mendez APRN.SHIP KEEPER Allergies As of Date: 01/25/2024 Noted Allergy Reaction CAFFEINE 12/01/2004 CODEINE 12/01/2004 DARVOCET A500 (PROPOXYPHENE N-REINALDO*12/01/2004 11 - Vomiting DEMEROL (MEPERIDINE (PF)) 07/07/2015 11 - Vomiting ENTEX (PHENYLEPHRINE-GUAIFENESIN ) 12/01/2004 EPHEDRINE 12/01/2004 14 - Other: See Comments Comments: Heart palpitations GRISEOFULVIN 12/01/2004 MILK CONTAINING PRODUCTS (DAIRY) 11/15/2016 5 - Intolerance Comments: Nasal stuffiness TRAMADOL 12/21/2011 14 - Other: See Comments Comments: Nausea, vomiting, dry heaves after carpal tunnel surgery VICODIN (HYDROCODONE-ACETAMINOPHE* 07/07/2015 9 - Itching ZOLOFT (SERTRALINE HCL) 09/25/2006 1 - Mental Status Change Comments: Increased anxiety and feeling of depression. Started in 2005, not noted then Date Reviewed: 01/25/2024 Reviewed by: Evelia Barajas LPN - Fully Assessed Reason for Visit: Mouth Sores [839] Cmt: X 1 day Primary Visit Diagnosis:Mouth sore [K13.79] Prescriptions as of 01/25/2024 - ketoconazole (NIZORAL) 2 % cream Apply to affected area two times a day. - amitriptyline (ELAVIL) 10 mg tablet Take 1 tablet by mouth daily at bedtime. - loratadine (CLARITIN) 10 mg tablet Take 1 tablet by mouth once daily. - methotrexate 2.5 mg tablet TAKE 5 TABLET(S) ORAL ONCE A WEEK START 4 TABS ONCE A WEEK FOR 2 WEEKS - fluocinolone-skin -otev 0.01 % kit Apply to affected area two times a day. - clobetasol (TEMOVATE) 0.05 % ointment Apply to affected area two times a day. To posterior ankle - hydrocortisone (ANUSOL-HC) 25 mg suppository 1 Suppository by RECTAL route two times a day as needed (hemorrhoids/rectal pain). - losartan (COZAAR) 25 mg tablet Take 1 tablet by mouth once daily. - FLUoxetine (PROZAC) 10 mg capsule Take 1 capsule by mouth once daily. - donepezil (ARICEPT) 10 mg tablet Take 1 tablet by mouth daily at bedtime. - famotidine (PEPCID) 10 mg tablet Take 1 tablet by mouth two times a day. - Azelaic Acid (FINACEA) 15 % gel Apply to affected area once daily. - fluorometholone (FML LIQUID FILM) 0.1 % ophthalmic suspension Use 1 Drop in both eyes once daily. - FOLIC ACID ORAL Take by mouth. Meds Comments as of 07/12/2019: 09/07/16: Not taking motrin or naprosyn. MS Does not take Naprosyn or Ibuprofen [facility] -May 27, 2019 Patient currently taking her prescription medications as prescriped. Esperanza Singleton RN 2019 Pt. stating has not been taking polyethylene glycol. Shonna Cervantes RN. Problem List As Of Date 01/25/2024 Noted Resolved Other disorders of synovium, tendon, and bursa(*01/08/2005 05/30/2015 Chronic midline low back pain without sciatica *02/08/2005 Ganglion of joint [M67.40] 07/16/2005 09/19/2016 Abdominal pain, right upper quadrant [ (more content not included)... Normal [facility] ANAYA WIL[facility] ([id number]) 1940 [address] Date Time Provider Department 01/23/24 [facility] During your visit today, we recorded the following information about you: Elizabeth Perez RN 01/23/2024 4:14 PM Addendum Patient calling to let PCP know that she saw Dr. Gandhi @ [facility] today for psoriasis. Dr. Gandhi prescribed Otezla 10 mg x 4 days, 20 mg x 4 days then 30 mg daily. She discontinued Methotrexate. ROBERT Coto Jordan L, DO 01/24/2024 9:53 AM Signed Noted Allergies As of Date: 01/23/2024 Noted Allergy Reaction CAFFEINE 12/01/2004 CODEINE 12/01/2004 DARVOCET A500 (PROPOXYPHENE N-REINALDO*12/01/2004 11 - Vomiting DEMEROL (MEPERIDINE (PF)) 07/07/2015 11 - Vomiting ENTEX (PHENYLEPHRINE-GUAIFENESIN ) 12/01/2004 EPHEDRINE 12/01/2004 14 - Other: See Comments Comments: Heart palpitations GRISEOFULVIN 12/01/2004 MILK CONTAINING PRODUCTS (DAIRY) 11/15/2016 5 - Intolerance Comments: Nasal stuffiness TRAMADOL 12/21/2011 14 - Other: See Comments Comments: Nausea, vomiting, dry heaves after carpal tunnel surgery VICODIN (HYDROCODONE-ACETAMINOPHE* 07/07/2015 9 - Itching ZOLOFT (SERTRALINE HCL) 09/25/2006 1 - Mental Status Change Comments: Increased anxiety and feeling of depression. Started in 2005, not noted then Date Reviewed: 01/22/2024 Reviewed by: Elen Moore LPN - Fully Assessed Reason for Visit: Patient Update [1234] Prescriptions as of 01/27/2024 - ketoconazole (NIZORAL) 2 % cream Apply to affected area two times a day. - amitriptyline (ELAVIL) 10 mg tablet Take 1 tablet by mouth daily at bedtime. - loratadine (CLARITIN) 10 mg tablet Take 1 tablet by mouth once daily. - methotrexate 2.5 mg tablet TAKE 5 TABLET(S) ORAL ONCE A WEEK START 4 TABS ONCE A WEEK FOR 2 WEEKS - fluocinolone-skin [id number]-[id number] 0.01 % kit Apply to affected area two times a day. - clobetasol (TEMOVATE) 0.05 % ointment Apply to affected area two times a day. To posterior ankle - hydrocortisone (ANUSOL-HC) 25 mg suppository 1 Suppository by RECTAL route two times a day as needed (hemorrhoids/rectal pain). - losartan (COZAAR) 25 mg tablet Take 1 tablet by mouth once daily. - FLUoxetine (PROZAC) 10 mg capsule Take 1 capsule by mouth once daily. - donepezil (ARICEPT) 10 mg tablet Take 1 tablet by mouth daily at bedtime. - famotidine (PEPCID) 10 mg tablet Take 1 tablet by mouth two times a day. - Azelaic Acid (FINACEA) 15 % gel Apply to affected area once daily. - fluorometholone (FML LIQUID FILM) 0.1 % ophthalmic suspension Use 1 Drop in both eyes once daily. - FOLIC ACID ORAL Take by mouth. Meds Comments as of 07/12/2019: 09/07/16: Not taking motrin or naprosyn. MS Does not take Naprosyn or Ibuprofen [facility] -May 27, 2019 Patient currently taking her prescription medications as prescriped. Esperanza Singleton RN 2019 Pt. stating has not been taking polyethylene glycol. Shonna Cervantes RN. Problem List As Of Date 01/23/2024 Noted Resolved Other disorders of synovium, tendon, and bursa(*01/08/2005 05/30/2015 Chronic midline low back pain without sciatica *02/08/2005 Ganglion of joint [M67.40] 07/16/2005 09/19/2016 Abdominal pain, right upper quadrant [R10.11] 02/01/2012 Unspecified constipation [K59.00] 02/01/2012 Diverticulosis of colon (without mention of hem* 05/30/2015 Hemorrhage of rectum and anus [K62.5] 09/19/2016 Cough [R05.9] 07/23/2008 02/01/2012 Rectocele [N81.6] 01/05/2011 Acute tracheobronchitis [J20.9] 03/07/2011 02/01/2012 Carpal tunnel syndrome [G56.00] 11/19/2011 09/19/2016 Osteopenia [M85.80] 10/28/2012 Adjustment disorder with anxiety [F43.22] 05/12/2013 Dyslipidemia [E78.5] 03/18/2015 Osteoarthritis of spine with radiculopathy, cer*05/30/2015 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 Psoriasis [L40.9] 05/23/2016 Dry cough [R05.8] 05/23/2016 Skin tear of lower leg without complication [S8*05/23/2016 09/19/2016 Abdominal pain [R10.9] 11/01/2016 05/20/2017 Postmenopausal atrophic vaginitis [N95.2] 11/01/2016 Cystitis [N30.90] 11/01/2016 05/20/2017 Primary osteoarthritis of left knee [M17.12] 05/10/2017 06/05/2017 Irritable bowel syndrome [K58.9] 05/20/2017 Urge incontinence [N39.41] 05/20/2017 Chronic pain of right knee [M25.561, G89.29] 05/20/2017 07/04/2017 OA (osteoarthritis) of knee [M17.9] 06/04/2017 06/05/2017 Status post total knee replacement using cement*07/04/2017 Status post total right knee replacement [Z96.6*09/07/2017 Adjustment insomnia [F51.02] 12/30/2017 Situational depression [F43.21] 12/30/2017 Hypertension, essential [I10] 12/30/2017 Hyperlipidemia, mixed [E78.2] 12/30/2017 Left lower quadrant pain [R10.32] 12/30/2017 Osteoarthritis of left knee [M17.12] 12/30/2017 Urinary frequency [R35.0] 02/03/2018 Chronic rhiniti (more content not included)... Normal [facility] CNOVon 01-22-2024 CNOV Office Visit (FAMPWS ) -- ANAYA WILSON ([id number]) 1940 [address]* Date Time Provider Department 01/22/24 11:00 AM EDENILSON NICHOLSON [facility] During your visit today, we recorded the following information about you: Temperature Pulse Respiration Blood pressure 96.2 degrees 60/minute 16/minute 128/72 Weight 54.4 kg Edenilson Nicholson DO 01/22/2024 11:06 AM Signed Ketoconazole cream on nail with a bandaid daily If nail doesn't improve, then need to consider doing a Lamisil pill daily Edenilson Nicholson, 01/22/2024 11:47 AM Signed CC: Anaya Wilson is a 83 year old female who presents to the office for follow up HPI: Seen in office 2 weeks ago by Dunia Monterroso CNP as below Right heel-saw Lakshmi Snowden last week, going back in a month. Was told she had psoriatic arthritis flare because she had stopped her methotrexate per physician order to see if her chronic abdominal pain sx would resolve. The abdominal sx did not resolve and she has since restarted the medication. Has been applying the tapinarof cream per dermatology, is not covering it with a dressing, just leaving it open. She would like to have this looked at to see if it looks right. Currently She was diagnosed with fungal infection on her right heel. Has been using medicated cream and it is improving- ketoconazole. She admits that she does mostly keep her socks and shoes on in the home most of the day. Psoriatic arthritis, recently restarted her methotrexate due to her arthritis pain. The abdominal symptoms weren't improved when she trialed off the methotrexate. 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 Dementia (HCC) Diverticulosis of colon (without mention of hemorrhage) Dry cough 05/23/2016 Ganglion of joint 07/16/2005 Generalized osteoarthrosis, unspecified site Hemorrhage of gastrointestinal tract, unspecified Hemorrhage of rectum and anus Hypertension Infection of left eye Irritable bowel syndrome Osteomalacia, unspecified Other and unspecified hyperlipidemia Pneumonia, organism unspecified(486) PONV (postoperative nausea and vomiting) Psoriatic arthritis (HCC) Rectocele 01/05/2011 Skin tear of lower leg without complication 05/23/2016 Sprain of unspecified site of sacroiliac region Unspecified constipation Urge incontinence mild PAST SURGICAL HISTORY Procedure Laterality Date ARTHRP KNE CONDYLEANDPLATU MEDIALANDLAT COMPARTMENTS Right 06/03/2017 Knee replacement, total COLONOSCOPY 05/10/2022 rectal mass COLONOSCOPY FLX DX W/COLLJ SPEC WHEN PFRMD 04/20/2002 Colonoscopy COLONOSCOPY FLX DX W/COLLJ SPEC WHEN PFRMD 07/25/2011 Colonoscopy EYE SURGERY HX JOINT REPLACEMENT HX NEUROPLASTY AND/TRANSPOS MEDIAN NRV CARPAL TUNNE 1979 Carpal tunnel decomp b/l hands NEUROPLASTY AND/TRANSPOS MEDIAN NRV CARPAL TUNNE 12/18/2011 RIGHT PAST SURGICAL HISTORY OF Left laser eye surgery for glaucoma SIGMOIDOSCOPY FLX DX W/COLLJ SPEC BR/WA IF PFRMD 06/23/2007 TOTAL ABDOMINAL HYSTERECT W/WO RMVL TUBE OVARY 1988 RUBI/BSO for fibroids and bleeding TOTAL KNEE REPLACEMENT Left 03/28/2020 VAGINAL HYSTERECTOMY Current Outpatient Medications Medication Sig ketoconazole (NIZORAL) 2 % cream Apply to affected area two times a day. amitriptyline (ELAVIL) 10 mg tablet Take 1 tablet by mouth daily at bedtime. loratadine (CLARITIN) 10 mg tablet Take 1 tablet by mouth once daily. methotrexate 2.5 mg tablet TAKE 5 TABLET(S) ORAL ONCE A WEEK START 4 TABS ONCE A WEEK FOR 2 WEEKS fluocinolone-skin -xiht 0.01 % kit Apply to affected area two times a day. clobetasol (TEMOVATE) 0.05 % ointment Apply to affected area two times a day. To posterior ankle hydrocortisone (ANUSOL-HC) 25 mg suppository 1 Suppository by RECTAL route two times a day as needed (hemorrhoids/rectal pain). losartan (COZAAR) 25 mg tablet Take 1 tablet by mouth once daily. FLUoxetine (PROZAC) 10 mg capsule Take 1 capsule by mouth once daily. donepezil (ARICEPT) 10 mg tablet Take 1 tablet by mouth daily at bedtime. famotidine (PEPCID) 10 mg tablet Take 1 tablet by mouth two times a day. Azelaic Acid (FINACEA) 15 % gel Apply to affected area once daily. fluorometholone (FML LIQUID FILM) 0.1 % ophthalmic suspension Use 1 Drop in both eyes once daily. FOLIC ACID ORAL Take by mouth. No current facility-administered medications for this visit. ALLERGIES Allergen Reactions Caffeine Codeine Darvocet (more content not included)... Normal [facility] -- ANAYA WILSON ([id number]) 1940 [address] Date Time Provider Department 01/10/24 [facility]SON NICHOLSON [facility] During your visit today, we recorded the following information about you: Elisabeth Rico LPN 01/10/2024 3:20 PM Signed PATIENT is wanting to know if she needs and antibiotic for her right foot- redness. Patient was also seen by Rhina Snowden as well and they did not give an antibiotic either. Patient is wondering if she needs one? Please review and advise and call patient back OSKAR Sims Bernadette, PA-C 01/14/2024 9:30 AM Signed Not recommend at the time of her visit with Angeline. Advise following up with lakshmi snowden as she has been following with them for this skin lesion/wound. If develops worsening/spreading redness, warmth, pain, red streaking, fever, needs to be seen in the office to reevaluate. Claire Biggs PA-C 01/14/2024 Hanna Couch MA 01/15/2024 4:54 PM Signed Patient informed and verbalized understanding. Hanna Couch MA Allergies As of Date: 01/10/2024 Noted Allergy Reaction CAFFEINE 12/01/2004 CODEINE 12/01/2004 DARVOCET A500 (PROPOXYPHENE N-REINALDO*12/01/2004 11 - Vomiting DEMEROL (MEPERIDINE (PF)) 07/07/2015 11 - Vomiting ENTEX (PHENYLEPHRINE-GUAIFENESIN ) 12/01/2004 EPHEDRINE 12/01/2004 14 - Other: See Comments Comments: Heart palpitations GRISEOFULVIN 12/01/2004 MILK CONTAINING PRODUCTS (DAIRY) 11/15/2016 5 - Intolerance Comments: Nasal stuffiness TRAMADOL 12/21/2011 14 - Other: See Comments Comments: Nausea, vomiting, dry heaves after carpal tunnel surgery VICODIN (HYDROCODONE-ACETAMINOPHE* 07/07/2015 9 - Itching ZOLOFT (SERTRALINE HCL) 09/25/2006 1 - Mental Status Change Comments: Increased anxiety and feeling of depression. Started in 2005, not noted then Date Reviewed: 01/09/2024 Reviewed by: Angeline Monterroso APRN.SHIP KEEPER - Fully Assessed Reason for Visit: Patient Question [6807] Prescriptions as of 01/15/2024 - amitriptyline (ELAVIL) 10 mg tablet Take 1 tablet by mouth daily at bedtime. - loratadine (CLARITIN) 10 mg tablet Take 1 tablet by mouth once daily. - methotrexate 2.5 mg tablet TAKE 5 TABLET(S) ORAL ONCE A WEEK START 4 TABS ONCE A WEEK FOR 2 WEEKS - fluocinolone-skin vifpo58-wxoc 0.01 % kit Apply to affected area two times a day. - clobetasol (TEMOVATE) 0.05 % ointment Apply to affected area two times a day. To posterior ankle - hydrocortisone (ANUSOL-HC) 25 mg suppository 1 Suppository by RECTAL route two times a day as needed (hemorrhoids/rectal pain). - losartan (COZAAR) 25 mg tablet Take 1 tablet by mouth once daily. - FLUoxetine (PROZAC) 10 mg capsule Take 1 capsule by mouth once daily. - donepezil (ARICEPT) 10 mg tablet Take 1 tablet by mouth daily at bedtime. - famotidine (PEPCID) 10 mg tablet Take 1 tablet by mouth two times a day. - Azelaic Acid (FINACEA) 15 % gel Apply to affected area once daily. - fluorometholone (FML LIQUID FILM) 0.1 % ophthalmic suspension Use 1 Drop in both eyes once daily. - FOLIC ACID ORAL Take by mouth. Meds Comments as of 07/12/2019: 09/07/16: Not taking motrin or naprosyn. MS Does not take Naprosyn or Ibuprofen [facility] 11-11May 27, 2019 Patient currently taking her prescription medications as prescriped. Esperanza Singleton RN 2019 Pt. stating has not been taking polyethylene glycol. Shonna Cervantes RN. Problem List As Of Date 01/10/2024 Noted Resolved Other disorders of synovium, tendon, and bursa(*01/08/2005 05/30/2015 Chronic midline low back pain without sciatica *02/08/2005 Ganglion of joint [M67.40] 07/16/2005 09/19/2016 Abdominal pain, right upper quadrant [R10.11] 02/01/2012 Unspecified constipation [K59.00] 02/01/2012 Diverticulosis of colon (without mention of hem* 05/30/2015 Hemorrhage of rectum and anus [K62.5] 09/19/2016 Cough [R05.9] 07/23/2008 02/01/2012 Rectocele [N81.6] 01/05/2011 Acute tracheobronchitis [J20.9] 03/07/2011 02/01/2012 Carpal tunnel syndrome [G56.00] 11/19/2011 09/19/2016 Osteopenia [M85.80] 10/28/2012 Adjustment disorder with anxiety [F43.22] 05/12/2013 Dyslipidemia [E78.5] 03/18/2015 Osteoarthritis of spine with radiculopathy, cer*05/30/2015 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 Psoriasis [L40.9] 05/23/2016 Dry cough [R05.8] 05/23/2016 Skin tear of lower leg without complication [S8*05/23/2016 09/19/2016 Abdominal pain [R10.9] 11/01/2016 05/20/2017 Postmenopausal atrophic vaginitis [N95.2] 11/01/2016 Cystitis [N30.90] 11/01/2016 05/20/2017 Primary osteoarthritis of left knee [M17.12] 05/10/2017 06/05/2017 Irritable bowel syndrome [K58.9] 05/20/2017 Urge incontinence [N39.41] 05/20/2017 Chronic pain of right knee [M25.561, G89.29] 05/20/2017 07/04/2017 OA (osteoarthritis) of knee [M17.9] 06/04/2017 06/05/2017 Status post total knee replacement usi (more content not included)... Normal [facility] CNCOon 01-09-2024 CNCO Letter Text Normal [facility] CNOVon 01-09-2024 CNOV Office Visit (FAMPWS ) -- ANAYA WILSON ([id number]) 1940 [address]* Date Time Provider Department 01/09/24 10:00 AM ANGELINE MONTERROSO During your visit today, we recorded the following information about you: Temperature Pulse Respiration Blood pressure 97 degrees 55/minute 16/minute 102/58 Weight 55.3 kg Angeline Monterroso APRN.SHIP KEEPER 01/13/2024 12:59 PM Signed Chief Complaint Patient presents with: Urinary Frequency Rash: R heel, warm to touch, red and swollen, saw [facility] and was prescribed Tapinarof cream, Derm took Cx- neg HPI Anaya Morrow Jaylyn is a 83 year old female who presents here today for Above Complaints.. Urinary frequency-was seen in [facility] on 01/02, did not get results of urinary culture back yet. States her urinary frequency isn't any worse than it typically is, especially when she drinks a lot of water. Denies other urinary sx. Right heel-saw [facility] last week, going back in a month. Was told she had psoriatic arthritis flare because she had stopped her methotrexate per physician order to see if her chronic abdominal pain sx would resolve. The abdominal sx did not resolve and she has since restarted the medication. Has been applying the tapinarof cream per dermatology, is not covering it with a dressing, just leaving it open. She would like to have this looked at to see if it looks right. Past medical history, appointments, medications, allergies reviewed. 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 Dementia (HCC) Diverticulosis of colon (without mention of hemorrhage) Dry cough 05/23/2016 Ganglion of joint 07/16/2005 Generalized osteoarthrosis, unspecified site Hemorrhage of gastrointestinal tract, unspecified Hemorrhage of rectum and anus Hypertension Infection of left eye Irritable bowel syndrome Osteomalacia, unspecified Other and unspecified hyperlipidemia Pneumonia, organism unspecified(486) PONV (postoperative nausea and vomiting) Psoriatic arthritis (HCC) Rectocele 01/05/2011 Skin tear of lower leg without complication 05/23/2016 Sprain of unspecified site of sacroiliac region Unspecified constipation Urge incontinence mild Previous Surgical History PAST SURGICAL HISTORY Procedure Laterality Date ARTHRP KNE CONDYLEANDPLATU MEDIALANDLAT COMPARTMENTS Right 06/03/2017 Knee replacement, total COLONOSCOPY 05/10/2022 rectal mass COLONOSCOPY FLX DX W/COLLJ SPEC WHEN PFRMD 04/20/2002 Colonoscopy COLONOSCOPY FLX DX W/COLLJ SPEC WHEN PFRMD 07/25/2011 Colonoscopy EYE SURGERY HX JOINT REPLACEMENT HX NEUROPLASTY AND/TRANSPOS MEDIAN NRV CARPAL TUNNE 1979 Carpal tunnel decomp b/l hands NEUROPLASTY AND/TRANSPOS MEDIAN NRV CARPAL TUNNE 12/18/2011 RIGHT PAST SURGICAL HISTORY OF Left laser eye surgery for glaucoma SIGMOIDOSCOPY FLX DX W/COLLJ SPEC BR/WA IF PFRMD 06/23/2007 TOTAL ABDOMINAL HYSTERECT W/WO RMVL TUBE OVARY 1988 RUBI/BSO for fibroids and bleeding TOTAL KNEE REPLACEMENT Left 03/28/2020 VAGINAL HYSTERECTOMY Family History FAMILY HISTORY Problem Relation Age of Onset Heart Mother CHF Cancer Father prostate Psychiatry Father Cancer Brother No Known Problems Daughter No Known Problems Daughter No Known Problems Daughter Breast Cancer Maternal Aunt Colon Cancer No Family History Patient Allergies ALLERGIES Allergen Reactions Caffeine Codeine Darvocet A500 [Prop* Vomiting Demerol [Meperidine* Vomiting Entex [Phenylephrin* Ephedrine Other: See Comments Heart palpitations Griseofulvin Milk Containing Pro* Intolerance Nasal stuffiness Tramadol Other: See Comments Nausea, vomiting, dry heaves after carpal tunnel surgery Vicodin [Hydrocodon* Itching Zoloft [Sertraline * Mental Status Change Increased anxiety and feeling of depression. Started in 2005, not noted then Current Medications Current Outpatient Medications on File Prior to Visit Medication Sig methotrexate 2.5 mg tablet TAKE 5 TABLET(S) ORAL ONCE A WEEK START 4 TABS ONCE A WEEK FOR 2 WEEKS fluocinolone-skin [id number] 0.01 % kit Apply to affected area two times a day. clobetasol (TEMOVATE) 0.05 % ointment Apply to affected area two times a day. To posterior ankle hydrocortisone (ANUSOL-HC) 25 mg suppository 1 Suppository by RECTAL route two times a day as needed (hemorrhoids/rectal pain). losartan (COZAAR) 25 mg tablet Take 1 tablet by mouth once daily. FLUoxetine (PROZAC) 10 mg capsule Take 1 capsule by mouth once daily. loratadine (CLARITIN) 10 mg tablet Take 1 tablet by mouth once daily. donepezil (ARICEPT) 10 mg tablet Take 1 (more content not included)... Normal [facility] Bacteria Ur Culton 4 Bacteria identified Cx Nom (U) ORGANISM ID: 1 10,000 -<50,000 CFU/ml Mixed microbiota Insignificant colony count. No further workup. Normal [facility] Comment on above: Performed By: #### 6 30-4 #### [facility] CLIA [id number] [address] [place] [address] [place] CBC W/Diff, Automatedon 11-0 -2023 Absolute Lymph 2.24 X10 3/uL Normal 0.83-4.51 [facility] Comment on above: Performed By: #### L 100.0100, L500.4050 #### [facility] [address] [place], [address] Absolute Neut 5.2 X10 3/uL Normal 2.0-7.7 [facility] Comment on above: Performed By: #### L 100.0100, L500.4050 #### [facility] [address] [place], [address] Basophils/100 WBC (Bld) 0.5 % Normal 0-1 [facility] Comment on above: Performed By: #### L 100.0100, L500.4050 #### [facility] [address] [place], [address] Eosinophils/100 WBC (Bld) 2.0 % Normal 0-5 [facility] Comment on above: Performed By: #### L 100.0100, L500.4050 #### [facility] [address] [place], [address] Erythrocyte distribution width (RBC) [Ratio] 14.0 % Normal 11.6-14.6 [facility] Comment on above: Performed By: #### L 100.0100, L500.4050 #### [facility] [address] [place], [address] Hematocrit (Bld) [Volume fraction] 41.2 % Normal 37-47 [facility] Comment on above: Performed By: #### L 100.0100, L500.4050 #### [facility] [address] [place], [address] Hemoglobin (Bld) [Mass/Vol] 13.0 g/dL Normal 12.0-15.0 [facility] Comment on above: Performed By: #### L 100.0100, L500.4050 #### [facility] [address] [place], [address] IG% 0.800 Normal 0.0-0.9 [facility] Comment on above: Result Comment: IG% - Immature Granulocytes (promyelocytes, myelocytes and metamyelocytes) > 1% indicates that a LEFT SHIFT is Present. Performed By: #### L 100.0100, L500.4050 #### [facility] [address] [place], [address] Lymphocytes/100 WBC (Bld) 26.2 % Normal 19-41 [facility] Comment on above: Performed By: #### L 100.0100, L500.4050 #### [facility] [address] [place], [address] MCH (RBC) [Entitic mass] 29.7 pg Normal 27.0-32.0 [facility] Comment on above: Performed By: #### L 100.0100, L500.4050 #### [facility] [address] [place], [address] MCHC (RBC) [Mass/Vol] 31.6 g/dL Low 32-36 [facility] Comment on above: Performed By: #### L 100.0100, L500.4050 #### [facility] [address] [place], [address] MCV (RBC) [Entitic vol] 94.3 fL Normal 81-99 [facility] Comment on above: Performed By: #### L 100.0100, L500.4050 #### [facility] [address] [place], [address] Monocytes/100 WBC (Bld) 9.1 % Normal 0-10 [facility] Comment on above: Performed By: #### L 100.0100, L500.4050 #### [facility] [address] [place], [address] Neutrophils/100 WBC (Bld) 61.4 % Normal 47-70 [facility] Comment on above: Performed By: #### L 100.0100, L500.4050 #### [facility] [address] [place], [address] Nucleated RBC (Bld) [#/Vol] 0 10*3/uL Normal 0-5 [facility] Comment on above: Performed By: #### L 100.0100, L500.4050 #### [facility] [address] [place], [address] Platelet mean volume (Bld) [Entitic vol] 11.2 fL Normal 6.2-12.0 [facility] Comment on above: Performed By: #### L 100.0100, L500.4050 #### [facility] [address] [place], [address] Platelets (Bld) [#/Vol] 222 10*3/uL Normal 150-450 [facility] Comment on above: Performed By: #### L 100.0100, L500.4050 #### [facility] [address] [place], [address] RBC (Bld) [#/Vol] 4.37 10*6/uL Normal 4.2-5.4 [facility] Comment on above: Performed By: #### L 100.0100, L500.4050 #### [facility] [address] [place], [address] RDW SD 48.3 fl High 35.1-43.9 [facility] Comment on above: Performed By: #### L 100.0100, L500.4050 #### [facility] [address] [place], [address] WBC (Bld) [#/Vol] 8.5 10*3/uL Normal 4.4-11.0 [facility] Comment on above: Performed By: #### L 100.0100, L500.4050 #### [facility] [address] [place], [address] CNOVon 01-03-2024 CNOV Office Visit ([facility] ) -- ANAYA WILSON ([id number]) [address] [employer] [employer] Date Time Provider Department 01/03/24 11:45 AM KATHRYN PEARSON [facility] During your visit today, we recorded the following information about you: Temperature Pulse Respiration Blood pressure 97.1 degrees 50/minute 18/minute 151/73 Weight 56.6 kg Kathryn Pearson APRN.CNP 01/03/2024 12:24 PM Signed This note was created using Task Messenger. Subjective Anaya Wilson is a 83 year old female. 83 year old female with PMH presents for complaints of urinary and foot complaints. UTI Acute on chronic +urinary frequency Denies abdominal pain Denies N/V/D Denies skin rash or lesions. Was seen here on 12/24/23 for same Urine culture negative (she was placed on Keflex) Right heel +redness She was seen for this spot on the ankle on 12/05/23 and prescribed steroid 12/24/23 she was also seen In fact she was seen by Rhina Snowden 2 days ago Cultures obtained, which she states was negative They were given a cream, which endorses she was told could take a little time to work The history is provided by the patient and the spouse. No cook room supervisor was used. 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 Dementia (HCC) Diverticulosis of colon (without mention of hemorrhage) Dry cough 05/23/2016 Ganglion of joint 07/16/2005 Generalized osteoarthrosis, unspecified site Hemorrhage of gastrointestinal tract, unspecified Hemorrhage of rectum and anus Hypertension Infection of left eye Irritable bowel syndrome Osteomalacia, unspecified Other and unspecified hyperlipidemia Pneumonia, organism unspecified(486) PONV (postoperative nausea and vomiting) Psoriatic arthritis (HCC) Rectocele 01/05/2011 Skin tear of lower leg without complication 05/23/2016 Sprain of unspecified site of sacroiliac region Unspecified constipation Urge incontinence mild PAST SURGICAL HISTORY Procedure Laterality Date ARTHRP KNE CONDYLEANDPLATU MEDIALANDLAT COMPARTMENTS Right 06/03/2017 Knee replacement, total COLONOSCOPY 05/10/2022 rectal mass COLONOSCOPY FLX DX W/COLLJ SPEC WHEN PFRMD 04/20/2002 Colonoscopy COLONOSCOPY FLX DX W/COLLJ SPEC WHEN PFRMD 07/25/2011 Colonoscopy EYE SURGERY HX JOINT REPLACEMENT HX NEUROPLASTY AND/TRANSPOS MEDIAN NRV CARPAL TUNNE 1979 Carpal tunnel decomp b/l hands NEUROPLASTY AND/TRANSPOS MEDIAN NRV CARPAL TUNNE 12/18/2011 RIGHT PAST SURGICAL HISTORY OF Left laser eye surgery for glaucoma SIGMOIDOSCOPY FLX DX W/COLLJ SPEC BR/WA IF PFRMD 06/23/2007 TOTAL ABDOMINAL HYSTERECT W/WO RMVL TUBE OVARY 1988 RUBI/BSO for fibroids and bleeding TOTAL KNEE REPLACEMENT Left 03/28/2020 VAGINAL HYSTERECTOMY ALLERGIES Caffeine, Codeine, Darvocet A500 [Propoxyphene N-Acetaminophen], Demerol [Meperidine (Pf)], Entex [Phenylephrine-Guaifenesin ], Ephedrine, Griseofulvin, Milk Containing Products (Dairy), Tramadol, Vicodin [Hydrocodone-Acetaminophen ], and Zoloft [Sertraline Hcl] MEDICATIONS methotrexate 2.5 mg tablet TAKE 5 TABLET(S) ORAL ONCE A WEEK START 4 TABS ONCE A WEEK FOR 2 WEEKS fluocinolone-skin [id number] 0.01 % kit Apply to affected area two times a day. clobetasol (TEMOVATE) 0.05 % ointment Apply to affected area two times a day. To posterior ankle hydrocortisone (ANUSOL-HC) 25 mg suppository 1 Suppository by RECTAL route two times a day as needed (hemorrhoids/rectal pain). losartan (COZAAR) 25 mg tablet Take 1 tablet by mouth once daily. loratadine (CLARITIN) 10 mg tablet Take 1 tablet by mouth once daily. donepezil (ARICEPT) 10 mg tablet Take 1 tablet by mouth daily at bedtime. famotidine (PEPCID) 10 mg tablet Take 1 tablet by mouth two times a day. Azelaic Acid (FINACEA) 15 % gel Apply to affected area once daily. amitriptyline (ELAVIL) 10 mg tablet Take 1 tablet by mouth daily at bedtime. fluorometholone (FML LIQUID FILM) 0.1 % ophthalmic suspension Use 1 Drop in both eyes once daily. FOLIC ACID ORAL Take by mouth. FLUoxetine (PROZAC) 10 mg capsule Take 1 capsule by mouth once daily. FAMILY HISTORY Problem Relation Age of Onset Heart Mother CHF Cancer Father prostate Psychiatry Father Cancer Brother No Known Problems Daughter No Known Problems Daughter No Known Problems Daughter Breast Cancer Maternal Aunt Colon Cancer No Family History Social History Tobacco Use Smoking status: Never Smokeless tobacco: Never Vaping Use Vaping status: Never Used Substance Use Topics Alcohol use: No Drug use: No Review of Systems Constitutional: Negative for appetite change, chills, diaphoresis and fatigue. Respirato (more content not included)... Normal [facility] Metabolic [facility] ilsai 01-03-2024 Albumin [Mass/Vol] 3.1 g/dL Low 3.2-5.0 [facility] Comment on above: Performed By: #### L 100.0100, L500.4050 #### [facility] [address] [place], [address] Albumin/Globulin [Mass ratio] 1.0 {ratio} Normal 0.9-2.4 [facility] Comment on above: Performed By: #### L 100.0100, L500.4050 #### [facility] [address] [place], [address] ALK P 115 U/L Normal 45-117 [facility] Comment on above: Performed By: #### L 100.0100, L500.4050 #### [facility] [address] [place], [address] ALT [Catalytic activity/Vol] 36 U/L Normal 13-56 [facility] Comment on above: Performed By: #### L 100.0100, L500.4050 #### [facility] [address] [place], [address] AST [Catalytic activity/Vol] 22 U/L Normal 15-37 [facility] Comment on above: Performed By: #### L 100.0100, L500.4050 #### [facility] [address] [place], [address] Bilirubin [Mass/Vol] 0.50 mg/dL Normal 0.20-1.00 [facility] Comment on above: Result Comment: For patients on eltrombopag therapy, use of Dimension Quail TBIL is not recommended. Performed By: #### L 100.0100, L500.4050 #### [facility] [address] [place], [address] BUN/CRE 19.5 RATIO Normal 10-20 [facility] Comment on above: Performed By: #### L 100.0100, L500.4050 #### [facility] [address] [place], [address] CA,Total 9.1 mg/dL Normal 8.5-10.1 [facility] Comment on above: Performed By: #### L 100.0100, L500.4050 #### [facility] [address] [place], [address] Chloride [Moles/Vol] 105 mmol/L Normal 98-107 [facility] Comment on above: Performed By: #### L 100.0100, L500.4050 #### [facility] [address] [place], [address] CO2 [Moles/Vol] 30.0 mmol/L Normal 21.0-32.0 [facility] Comment on above: Performed By: #### L 100.0100, L500.4050 #### [facility] [address] [place], [address] Creatinine [Mass/Vol] 0.62 mg/dL Normal 0.55-1.02 [facility] Comment on above: Result Comment: The validity of the calculated GFR GFRAA in patients over 70 years has not been determined. Clinical correlation is essential. Performed By: #### L 100.0100, L500.4050 #### [facility] [address] [place], [address] EST GFR - AA 119 mL/min Normal >60 [facility] Comment on above: Result Comment: Afri can [place] GFR Calc Performed By: #### L 100.0100, L500.4050 #### [facility] [address] [place], [address] GAP 3 Low 5-15 [facility] Comment on above: Performed By: #### L 100.0100, L500.4050 #### [facility] [address] [place], [address] GFR/1.73 sq M.predicted among non-blacks MDRD (S/P/Bld) [Vol rate/Area] 98 mL/min/{1.73_m2} Normal >60 [facility] Comment on above: Result Comment: Non- GFR Calc Performed By: #### L 100.0100, L500.4050 #### [facility] [address] [place], [address] Globulin (S) [Mass/Vol] 3.1 g/dL Normal 2.2-4.2 [facility] Comment on above: Performed By: #### L 100.0100, L500.4050 #### [facility] [address] [place], [address] Glucose [Mass/Vol] 98 mg/dL Normal 74-106 [facility] Comment on above: Performed By: #### L 100.0100, L500.4050 #### [facility] [address] [place], [address] Potassium [Moles/Vol] 4.6 mmol/L Normal 3.5-5.1 [facility] Comment on above: Performed By: #### L 100.0100, L500.4050 #### [facility] [address] [place], [address] Sodium [Moles/Vol] 138 mmol/L Normal 136-145 [facility] Comment on above: Performed By: #### L 100.0100, L500.4050 #### [facility] [address] [place], [address] T PROT 6.2 g/dL Low 6.4-8.2 [facility] Comment on above: Performed By: #### L 100.0100, L500.4050 #### [facility] [address] [place], [address] Urea nitrogen [Mass/Vol] 12 mg/dL Normal 7-18 [facility] Comment on above: Performed By: #### L 100.0100, L500.4050 #### [facility] [address] [place], [address] UA DIP, URINE (POC)on 2023 BILIRUBIN UA (POCT) Negative Negative [facility] CLARITY UA (POCT) Clear [facility] COLOR UA (POCT) Yellow [facility] GLUCOSE UA (POCT) Negative Negative mg/dL [facility] Hemoglobin Ql (U) Negative Negative [facility] Interpretation and review of laboratory results Abnormal [facility] KETONE UA (POCT) Negative Negative mg/dL [facility] LEUKOCYTES UA (POCT) Negative Negative [facility] NITRITE UA (POCT) Negative Negative [facility] PH UA (POCT) 8.5 Abnormal 4.5 - 8.0 [facility] Protein Ql (U) Negative Negative mg/dL [facility] SPECIFIC GRAVITY UA (POCT) 1.015 1.005 - 1.030 [facility] UROBILINOGEN UA (POCT) 0.2 Normal E.U./dL [facility] Location:[facility] [place], [address] [place] [address], [place], [address] [facility] POINT OF CARE [facility] Bacteria Ur Culton 4 Bacteria identified Cx Nom (U) ORGANISM ID: 1 <10,000 CFU/ml Normal urogenital ji Normal [facility] Comment on above: Performed By: #### 6 30-4 #### [facility] CLIA [id number] [address] [place] [address] [place] CNOVon 12-24-2023 CNOV Office Visit ([facility] ) -- ANAYA WILSON ([id number]) 1940 [address] [employer] Date Time Provider Department 12/24/23 5:15 PM ABIGAIL BALDERAS [facility] During your visit today, we recorded the following information about you: Temperature Pulse Respiration Blood pressure 98.5 degrees 60/minute 16/minute 120/80 Weight 56.3 kg Abigail Balderas APRN.SHIP KEEPER 12/24/2023 5:54 PM Signed Subjective HPI Anaya Wilson is a 83 year old female who presents with urinary frequency that started today. She denies other symptoms. No fever or chills. No back pain or abdominal pain. No nausea or vomiting. She also notes a spot on her left heel that is tender and red and seems to be getting larger. She has a history of psoriatic arthritis and stopped taking it for a while due to concern it was causing stomach issues. She has now restarted the medication as stopping it had no effect on stomach concerns. She was seen for this spot on the ankle on 12/05/23 and prescribed a steroid ointment which she has been using. Review of Systems Constitutional: Negative for chills and fever. Respiratory: Negative. Cardiovascular: Negative. Gastrointestinal: Negative for abdominal pain, nausea and vomiting. Genitourinary: Positive for frequency. Negative for dysuria and urgency. Musculoskeletal: Negative for back pain. Skin: Negative for itching and rash. See HPI BP 120/80 Pulse 60 Temp 36.9 ?C (98.5 ?F) Resp 16 Wt 56.3 kg (124 lb 1.9 oz) SpO2 96% BMI 25.94 kg/m? 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 Dementia (HCC) Diverticulosis of colon (without mention of hemorrhage) Dry cough 05/23/2016 Ganglion of joint 07/16/2005 Generalized osteoarthrosis, unspecified site Hemorrhage of gastrointestinal tract, unspecified Hemorrhage of rectum and anus Hypertension Infection of left eye Irritable bowel syndrome Osteomalacia, unspecified Other and unspecified hyperlipidemia Pneumonia, organism unspecified(486) PONV (postoperative nausea and vomiting) Psoriatic arthritis (HCC) Rectocele 01/05/2011 Skin tear of lower leg without complication 05/23/2016 Sprain of unspecified site of sacroiliac region Unspecified constipation Urge incontinence mild PAST SURGICAL HISTORY Procedure Laterality Date ARTHRP KNE CONDYLEANDPLATU MEDIALANDLAT COMPARTMENTS Right 06/03/2017 Knee replacement, total COLONOSCOPY 05/10/2022 rectal mass COLONOSCOPY FLX DX W/COLLJ SPEC WHEN PFRMD 04/20/2002 Colonoscopy COLONOSCOPY FLX DX W/COLLJ SPEC WHEN PFRMD 07/25/2011 Colonoscopy EYE SURGERY HX JOINT REPLACEMENT HX NEUROPLASTY AND/TRANSPOS MEDIAN NRV CARPAL TUNNE 1979 Carpal tunnel decomp b/l hands NEUROPLASTY AND/TRANSPOS MEDIAN NRV CARPAL TUNNE 12/18/2011 RIGHT PAST SURGICAL HISTORY OF Left laser eye surgery for glaucoma SIGMOIDOSCOPY FLX DX W/COLLJ SPEC BR/WA IF PFRMD 06/23/2007 TOTAL ABDOMINAL HYSTERECT W/WO RMVL TUBE OVARY 1988 RUBI/BSO for fibroids and bleeding TOTAL KNEE REPLACEMENT Left 03/28/2020 VAGINAL HYSTERECTOMY ALLERGIES Caffeine, Codeine, Darvocet A500 [Propoxyphene N-Acetaminophen], Demerol [Meperidine (Pf)], Entex [Phenylephrine-Guaifenesin ], Ephedrine, Griseofulvin, Milk Containing Products (Dairy), Tramadol, Vicodin [Hydrocodone-Acetaminophen ], and Zoloft [Sertraline Hcl] MEDICATIONS fluocinolone-skin [id number] 0.01 % kit Apply to affected area two times a day. clobetasol (TEMOVATE) 0.05 % ointment Apply to affected area two times a day. To posterior ankle hydrocortisone (ANUSOL-HC) 25 mg suppository 1 Suppository by RECTAL route two times a day as needed (hemorrhoids/rectal pain). losartan (COZAAR) 25 mg tablet Take 1 tablet by mouth once daily. FLUoxetine (PROZAC) 10 mg capsule Take 1 capsule by mouth once daily. loratadine (CLARITIN) 10 mg tablet Take 1 tablet by mouth once daily. donepezil (ARICEPT) 10 mg tablet Take 1 tablet by mouth daily at bedtime. famotidine (PEPCID) 10 mg tablet Take 1 tablet by mouth two times a day. Azelaic Acid (FINACEA) 15 % gel Apply to affected area once daily. amitriptyline (ELAVIL) 10 mg tablet Take 1 tablet by mouth daily at bedtime. fluorometholone (FML LIQUID FILM) 0.1 % ophthalmic suspension Use 1 Drop in both eyes once daily. FOLIC ACID ORAL Take by mouth. methotrexate 2.5 mg tablet TAKE 5 TABLET(S) ORAL ONCE A WEEK START 4 TABS ONCE A WEEK FOR 2 WEEKS cephALEXin (KEFLEX) 500 mg capsule Take 1 capsule by mouth two times a day for 7 days. meloxicam (MOBIC) 15 mg tablet Take 1 tablet by mouth once daily. (Patient not taking: Reported on 12/05/2023) FAMILY HISTORY Problem Relati (more content not included)... Normal [facility] 12-24-2023 [facility] ANAYA WILSON ([id number]) 1940 [address] [employer] Date Time Provider Department 12/24/23 ED[facility]ILSON [facility]ICHOL[facility] During your visit today, we recorded the following information about you: Cherrie Harkins RN 12/24/2023 3:29 PM Signed Patient calling to state she thinks she may have a UTI with urinary frequency for 2 days. History of UTI's. Pt agreeable to being evaluated as advised, at [facility] this evening. Cherrie Harkins RN Allergies As of Date: 12/24/2023 Noted Allergy Reaction CAFFEINE 12/01/2004 CODEINE 12/01/2004 DARVOCET A500 (PROPOXYPHENE N-REINALDO*12/01/2004 11 - Vomiting DEMEROL (MEPERIDINE (PF)) 07/07/2015 11 - Vomiting ENTEX (PHENYLEPHRINE-GUAIFENESIN ) 12/01/2004 EPHEDRINE 12/01/2004 14 - Other: See Comments Comments: Heart palpitations GRISEOFULVIN 12/01/2004 MILK CONTAINING PRODUCTS (DAIRY) 11/15/2016 5 - Intolerance Comments: Nasal stuffiness TRAMADOL 12/21/2011 14 - Other: See Comments Comments: Nausea, vomiting, dry heaves after carpal tunnel surgery VICODIN (HYDROCODONE-ACETAMINOPHE* 07/07/2015 9 - Itching ZOLOFT (SERTRALINE HCL) 09/25/2006 1 - Mental Status Change Comments: Increased anxiety and feeling of depression. Started in 2005, not noted then Date Reviewed: 12/05/2023 Reviewed by: Kinga Goldberg APRN.SHIP KEEPER - Fully Assessed Reason for Visit: Patient Call [Other] Prescriptions as of 12/24/2023 - fluocinolone-skin [id number] 0.01 % kit Apply to affected area two times a day. - clobetasol (TEMOVATE) 0.05 % ointment Apply to affected area two times a day. To posterior ankle - hydrocortisone (ANUSOL-HC) 25 mg suppository 1 Suppository by RECTAL route two times a day as needed (hemorrhoids/rectal pain). - losartan (COZAAR) 25 mg tablet Take 1 tablet by mouth once daily. - FLUoxetine (PROZAC) 10 mg capsule Take 1 capsule by mouth once daily. - loratadine (CLARITIN) 10 mg tablet Take 1 tablet by mouth once daily. - donepezil (ARICEPT) 10 mg tablet Take 1 tablet by mouth daily at bedtime. - famotidine (PEPCID) 10 mg tablet Take 1 tablet by mouth two times a day. - Azelaic Acid (FINACEA) 15 % gel Apply to affected area once daily. - amitriptyline (ELAVIL) 10 mg tablet Take 1 tablet by mouth daily at bedtime. - meloxicam (MOBIC) 15 mg tablet Take 1 tablet by mouth once daily. - fluorometholone (FML LIQUID FILM) 0.1 % ophthalmic suspension Use 1 Drop in both eyes once daily. - FOLIC ACID ORAL Take by mouth. Meds Comments as of 07/12/2019: 09/07/16: Not taking motrin or naprosyn. MS Does not take Naprosyn or Ibuprofen [facility] 9-10 May 27, 2019 Patient currently taking her prescription medications as prescriped. Esperanza Singleton RN 2019 Pt. stating has not been taking polyethylene glycol. Shonna Cervantes RN. Problem List As Of Date 12/24/2023 Noted Resolved Other disorders of synovium, tendon, and bursa(*01/08/2005 05/30/2015 Chronic midline low back pain without sciatica *02/08/2005 Ganglion of joint [M67.40] 07/16/2005 09/19/2016 Abdominal pain, right upper quadrant [R10.11] 02/01/2012 Unspecified constipation [K59.00] 02/01/2012 Diverticulosis of colon (without mention of hem* 05/30/2015 Hemorrhage of rectum and anus [K62.5] 09/19/2016 Cough [R05.9] 07/23/2008 02/01/2012 Rectocele [N81.6] 01/05/2011 Acute tracheobronchitis [J20.9] 03/07/2011 02/01/2012 Carpal tunnel syndrome [G56.00] 11/19/2011 09/19/2016 Osteopenia [M85.80] 10/28/2012 Adjustment disorder with anxiety [F43.22] 05/12/2013 Dyslipidemia [E78.5] 03/18/2015 Osteoarthritis of spine with radiculopathy, cer*05/30/2015 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 Psoriasis [L40.9] 05/23/2016 Dry cough [R05.8] 05/23/2016 Skin tear of lower leg without complication [S8*05/23/2016 09/19/2016 Abdominal pain [R10.9] 11/01/2016 05/20/2017 Postmenopausal atrophic vaginitis [N95.2] 11/01/2016 Cystitis [N30.90] 11/01/2016 05/20/2017 Primary osteoarthritis of left knee [M17.12] 05/10/2017 06/05/2017 Irritable bowel syndrome [K58.9] 05/20/2017 Urge incontinence [N39.41] 05/20/2017 Chronic pain of right knee [M25.561, G89.29] 05/20/2017 07/04/2017 OA (osteoarthritis) of knee [M17.9] 06/04/2017 06/05/2017 Status post total knee replacement using cement*07/04/2017 Status post total right knee replacement [Z96.6*09/07/2017 Adjustment insomnia [F51.02] 12/30/2017 Situational depression [F43.21] 12/30/2017 Hypertension, essential [I10] 12/30/2017 Hyperlipidemia, mixed [E78.2] 12/30/2017 Left lower quadrant pain [R10.32] 12/30/2017 Osteoarthritis of left knee [M17.12] 12/30/2017 Urinary frequency [R35.0] 02/03/2018 Chronic rhinitis [J31.0] Chronic obstructive pulmonary disease (HCC) [J4*10/08/2018 Chronic cough [R05.3] 10/08/2018 Sebaceous cyst [L72.3] 10/08/2018 Inflammatory arthritis [M19.90] 04/08/2019 Radiculopathy, (more content not included)... Normal [facility] UA DIP, URINE (POC)on 2023 BILIRUBIN UA (POCT) Negative Negative [facility] CLARITY UA (POCT) Clear [facility] COLOR UA (POCT) Yellow [facility] GLUCOSE UA (POCT) Negative Negative mg/dL [facility] Hemoglobin Ql (U) Negative [facility] KETONE UA (POCT) Negative Negative mg/dL [facility] LEUKOCYTES UA (POCT) Negative Negative [facility] NITRITE UA (POCT) Negative Negative [facility] PH UA (POCT) 7.0 4.5 - 8.0 [facility] Protein Ql (U) Negative Negative mg/dL [facility] SPECIFIC GRAVITY UA (POCT) 1.015 1.005 - 1.030 [facility] UROBILINOGEN UA (POCT) 0.2 Normal E.U./dL [facility] Location:[facility] [place], [facility], [place], [address] [facility] POINT OF CARE [facility] Ferritin SerPl-[facility] 20[facility] Ferritin [Mass/Vol] 130.0 ng/mL Normal 14.7-205.1 [facility] Comment on above: Order Comment: Speci men Type: BLOOD SPECIMENOrdering Facility: [facility] Address: [address] [place] [address] Performed By: #### 5 0190-8, 2275-4, 8 ####[facility] LABIA [id number] [address] [address] [place] Folate SerPl-mCncon 12-16-19 Folate [Mass/Vol] 18.3 ng/mL Normal >4.7 [facility] Comment on above: Order Comment: Speci men Type: BLOOD SPECIMENOrdering Facility: [facility] Address: [address] [place] [address] Performed By: #### 5 0190-8, 2275-4, 8 ####[facility] LABIA [id number] [address] [address] [place] Iron and Iron binding capaci [facility] 12-16-2023 Iron [Mass/Vol] 51 ug/dL Normal 41-186 [facility] Comment on above: Order Comment: Speci men Type: BLOOD SPECIMENOrdering Facility: [facility] Address: [address] [place] [address] Performed By: #### 5 0190-8, 4, 8 ####[facility] LABIA [id number] [address] [address] [place] Iron binding capacity [Mass/Vol] 293 ug/dL Normal 232-386 [facility] Comment on above: Order Comment: Speci men Type: BLOOD SPECIMENOrdering Facility: [facility] Address: [address] [place] [address] Performed By: #### 5 0190-8, 2276-4, 8 ####[facility] LABCLIA [id number] [facility] [place] [address] [place] Iron/TIBC [Molar ratio] 17.4 % Normal 15.0-57.0 [facility] Comment on above: Order Comment: Speci men Type: BLOOD SPECIMENOrdering Facility: [facility] Address: [address] [place] [address], [place] [address] Performed By: #### 5 0190-8, 2275-4, 8 ####[facility] LABCLIA [id number] [facility] [address] [address] [place] CBC W/Diff, Automatedon 10-0 -2023 Absolute Lymph 2.01 X10 3/uL Normal 0.83-4.51 [facility] Comment on above: Performed By: #### L 500.4050, L100.0100 #### [facility] [address] [place], [address] Absolute Neut 3.7 X10 3/uL Normal 2.0-7.7 [facility] Comment on above: Performed By: #### L 500.4050, L100.0100 #### [facility] [address] [place], [address] Basophils/100 WBC (Bld) 0.5 % Normal 0-1 [facility] Comment on above: Performed By: #### L 500.4050, L100.0100 #### [facility] [address] [place], [address] Eosinophils/100 WBC (Bld) 2.4 % Normal 0-5 [facility] Comment on above: Performed By: #### L 500.4050, L100.0100 #### [facility] [address] [place], [address] Erythrocyte distribution width (RBC) [Ratio] 14.0 % Normal 11.6-14.6 [facility] Comment on above: Performed By: #### L 500.4050, L100.0100 #### [facility] [address] [place], [address] Hematocrit (Bld) [Volume fraction] 38.5 % Normal 37-47 [facility] Comment on above: Performed By: #### L 500.4050, L100.0100 #### [facility] [address] [place], [address] Hemoglobin (Bld) [Mass/Vol] 11.9 g/dL Low 12.0-15.0 [facility] Comment on above: Performed By: #### L 500.4050, L100.0100 #### [facility] [address] [place], [address] IG% 1.100 High 0.0-0.9 [facility] Comment on above: Result Comment: IG% - Immature Granulocytes (promyelocytes, myelocytes and metamyelocytes) > 1% indicates that a LEFT SHIFT is Present. Performed By: #### L 500.4050, L100.0100 #### [facility] [address] [place], [address] Lymphocytes/100 WBC (Bld) 30.6 % Normal 19-41 [facility] Comment on above: Performed By: #### L 500.4050, L100.0100 #### [facility] [address] [place], [address] MCH (RBC) [Entitic mass] 29.0 pg Normal 27.0-32.0 [facility] Comment on above: Performed By: #### L 500.4050, L100.0100 #### [facility] [address] [place], [address] MCHC (RBC) [Mass/Vol] 30.9 g/dL Low 32-36 [facility] Comment on above: Performed By: #### L 500.4050, L100.0100 #### [facility] [address] [place], [address] MCV (RBC) [Entitic vol] 93.7 fL Normal 81-99 [facility] Comment on above: Performed By: #### L 500.4050, L100.0100 #### [facility] [address] [place], [address] Monocytes/100 WBC (Bld) 9.1 % Normal 0-10 [facility] Comment on above: Performed By: #### L 500.4050, L100.0100 #### [facility] [address] [place], [address] Neutrophils/100 WBC (Bld) 56.3 % Normal 47-70 [facility] Comment on above: Performed By: #### L 500.4050, L100.0100 #### [facility] [address] [place], [address] Nucleated RBC (Bld) [#/Vol] 0 10*3/uL Normal 0-5 [facility] Comment on above: Performed By: #### L 500.4050, L100.0100 #### [facility] [address] [place], [address] Platelet mean volume (Bld) [Entitic vol] 10.6 fL Normal 6.2-12.0 [facility] Comment on above: Performed By: #### L 500.4050, L100.0100 #### [facility] [address] [place], [address] Platelets (Bld) [#/Vol] 212 10*3/uL Normal 150-450 [facility] Comment on above: Performed By: #### L 500.4050, L100.0100 #### [facility] [address] [place], [address] RBC (Bld) [#/Vol] 4.11 10*6/uL Low 4.2-5.4 [facility] Comment on above: Performed By: #### L 500.4050, L100.0100 #### [facility] [address] [place], [address] RDW SD 47.8 fl High 35.1-43.9 [facility] Comment on above: Performed By: #### L 500.4050, L100.0100 #### [facility] [address] [place], [address] WBC (Bld) [#/Vol] 6.6 10*3/uL Normal 4.4-11.0 [facility] Comment on above: Performed By: #### L 500.4050, L100.0100 #### [facility] [address] [place], [address] Comprehensive Metabolic [facility] 12-09-2023 Albumin [Mass/Vol] 2.9 g/dL Low 3.2-5.0 [facility] Comment on above: Performed By: #### L 500.4050, L100.0100 #### [facility] [address] [place], [address] Albumin/Globulin [Mass ratio] 0.9 {ratio} Normal 0.9-2.4 [facility] Comment on above: Performed By: #### L 500.4050, L100.0100 #### [facility] [address] [place], [address] ALK P 108 U/L Normal 45-117 [facility] Comment on above: Performed By: #### L 500.4050, L100.0100 #### [facility] [address] [place], [address] ALT [Catalytic activity/Vol] 30 U/L Normal 13-56 [facility] Comment on above: Performed By: #### L 500.4050, L100.0100 #### [facility] [address] [place], [address] AST [Catalytic activity/Vol] 27 U/L Normal 15-37 [facility] Comment on above: Performed By: #### L 500.4050, L100.0100 #### [facility] [address] [place], [address] Bilirubin [Mass/Vol] 0.50 mg/dL Normal 0.20-1.00 [facility] Comment on above: Result Comment: For patients on eltrombopag therapy, use of Dimension Quail TBIL is not recommended. Performed By: #### L 500.4050, L100.0100 #### [facility] [address] [place], [address] BUN/CRE 26.5 RATIO High 10-20 [facility] Comment on above: Performed By: #### L 500.4050, L100.0100 #### [facility] [address] [place], [address] CA,Total 9.0 mg/dL Normal 8.5-10.1 [facility] Comment on above: Performed By: #### L 500.4050, L100.0100 #### [facility] [address] [place], [address] Chloride [Moles/Vol] 106 mmol/L Normal 98-107 [facility] Comment on above: Performed By: #### L 500.4050, L100.0100 #### [facility] [address] [place], [address] CO2 [Moles/Vol] 29.0 mmol/L Normal 21.0-32.0 [facility] Comment on above: Performed By: #### L 500.4050, L100.0100 #### [facility] [address] [place], [address] Creatinine [Mass/Vol] 0.64 mg/dL Normal 0.55-1.02 [facility] Comment on above: Result Comment: The validity of the calculated GFR GFRAA in patients over 70 years has not been determined. Clinical correlation is essential. Performed By: #### L 500.4050, L100.0100 #### [facility] [address] [place], [address] EST GFR - AA 114 mL/min Normal >60 [facility] Comment on above: Result Comment: Afri can [place] GFR Calc Performed By: #### L 500.4050, L100.0100 #### [facility] [address] [place], [address] GAP 3 Low 5-15 [facility] Comment on above: Performed By: #### L 500.4050, L100.0100 #### [facility] [address] [place], [address] GFR/1.73 sq M.predicted among non-blacks MDRD (S/P/Bld) [Vol rate/Area] 94 mL/min/{1.73_m2} Normal >60 [facility] Comment on above: Result Comment: Non- GFR Calc Performed By: #### L 500.4050, L100.0100 #### [facility] [address] [place], [address] Globulin (S) [Mass/Vol] 3.4 g/dL Normal 2.2-4.2 [facility] Comment on above: Performed By: #### L 500.4050, L100.0100 #### [facility] [address] [place], [address] Glucose [Mass/Vol] 100 mg/dL Normal 74-106 [facility] Comment on above: Result Comment: Fast ing Glucose result from 100 to 125 mg/dL suggests IMPAIRED HOMEOSTASIS per A.D.A. criteria. Performed By: #### L 500.4050, L100.0100 #### [facility] [address] [place], [address] Potassium [Moles/Vol] 4.2 mmol/L Normal 3.5-5.1 [facility] Comment on above: Performed By: #### L 500.4050, L100.0100 #### [facility] [address] [place], [address] Sodium [Moles/Vol] 138 mmol/L Normal 136-145 [facility] Comment on above: Performed By: #### L 500.4050, L100.0100 #### [facility] [address] [place], [address] T PROT 6.3 g/dL Low 6.4-8.2 [facility] Comment on above: Performed By: #### L 500.4050, L100.0100 #### [facility] [address] [place], [address] Urea nitrogen [Mass/Vol] 17 mg/dL Normal 7-18 [facility] Comment on above: Performed By: #### L 500.4050, L100.0100 #### [facility] [address] [place], [address] CNOVon 12-05-2023 CNOV Office Visit (FAMPWS ) -- ANAYA WILSON ([id number]) 1940 Sheryl Carty* Date Time Provider Department 12/05/23 10:40 AM KINGA GOLDBERG FAMPWS During your visit today, we recorded the following information about you: Pulse Respiration Blood pressure Weight 62/minute 14/minute 120/62 54.2 kg Kinga Goldberg APRN.CNP 12/05/2023 11:18 AM Signed This is a 83 year old female who presents today with: Patient presents with: Psoriatic Arthritis: Follow up HISTORY OF PRESENT ILLNESS: Anaya Wilson is a 83 year old female. Patient presents with: Psoriatic Arthritis: Follow up Pain in right foot and ankle resolved. C/O rash posterior right heel excoriated and itches. Clobetasol ointment 2 x day not helping. Asking to go back on methotrexate. 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 Dementia (HCC) Diverticulosis of colon (without mention of hemorrhage) Dry cough 05/23/2016 Ganglion of joint 07/16/2005 Generalized osteoarthrosis, unspecified site Hemorrhage of gastrointestinal tract, unspecified Hemorrhage of rectum and anus Hypertension Infection of left eye Irritable bowel syndrome Osteomalacia, unspecified Other and unspecified hyperlipidemia Pneumonia, organism unspecified(486) PONV (postoperative nausea and vomiting) Psoriatic arthritis (HCC) Rectocele 01/05/2011 Skin tear of lower leg without complication 05/23/2016 Sprain of unspecified site of sacroiliac region Unspecified constipation Urge incontinence mild PAST SURGICAL HISTORY Procedure Laterality Date ARTHRP KNE CONDYLEANDPLATU MEDIALANDLAT COMPARTMENTS Right 06/03/2017 Knee replacement, total COLONOSCOPY 05/10/2022 rectal mass COLONOSCOPY FLX DX W/COLLJ SPEC WHEN PFRMD 04/20/2002 Colonoscopy COLONOSCOPY FLX DX W/COLLJ SPEC WHEN PFRMD 07/25/2011 Colonoscopy EYE SURGERY HX JOINT REPLACEMENT HX NEUROPLASTY AND/TRANSPOS MEDIAN NRV CARPAL TUNNE 1979 Carpal tunnel decomp b/l hands NEUROPLASTY AND/TRANSPOS MEDIAN NRV CARPAL TUNNE 12/18/2011 RIGHT PAST SURGICAL HISTORY OF Left laser eye surgery for glaucoma SIGMOIDOSCOPY FLX DX W/COLLJ SPEC BR/WA IF PFRMD 06/23/2007 TOTAL ABDOMINAL HYSTERECT W/WO RMVL TUBE OVARY 1988 RUBI/BSO for fibroids and bleeding TOTAL KNEE REPLACEMENT Left 03/28/2020 VAGINAL HYSTERECTOMY ALLERGIES Caffeine, Codeine, Darvocet A500 [Propoxyphene N-Acetaminophen], Demerol [Meperidine (Pf)], Entex [Phenylephrine-Guaifenesin ], Ephedrine, Griseofulvin, Milk Containing Products (Dairy), Tramadol, Vicodin [Hydrocodone-Acetaminophen ], and Zoloft [Sertraline Hcl] MEDICATIONS Current Outpatient Medications Medication Sig clobetasol (TEMOVATE) 0.05 % ointment Apply to affected area two times a day. To posterior ankle hydrocortisone (ANUSOL-HC) 25 mg suppository 1 Suppository by RECTAL route two times a day as needed (hemorrhoids/rectal pain). losartan (COZAAR) 25 mg tablet Take 1 tablet by mouth once daily. FLUoxetine (PROZAC) 10 mg capsule Take 1 capsule by mouth once daily. loratadine (CLARITIN) 10 mg tablet Take 1 tablet by mouth once daily. donepezil (ARICEPT) 10 mg tablet Take 1 tablet by mouth daily at bedtime. famotidine (PEPCID) 10 mg tablet Take 1 tablet by mouth two times a day. amitriptyline (ELAVIL) 10 mg tablet Take 1 tablet by mouth daily at bedtime. fluorometholone (FML LIQUID FILM) 0.1 % ophthalmic suspension Use 1 Drop in both eyes once daily. Azelaic Acid (FINACEA) 15 % gel Apply to affected area once daily. meloxicam (MOBIC) 15 mg tablet Take 1 tablet by mouth once daily. (Patient not taking: Reported on 12/05/2023) FOLIC ACID ORAL Take by mouth. No current facility-administered medications for this visit. FAMILY HISTORY Problem Relation Age of Onset Heart Mother CHF Cancer Father prostate Psychiatry Father Cancer Brother No Known Problems Daughter No Known Problems Daughter No Known Problems Daughter Breast Cancer Maternal Aunt Colon Cancer No Family History Social History Tobacco Use Smoking status: Never Smokeless tobacco: Never Vaping Use Vaping status: Never Used Substance Use Topics Alcohol use: No Drug use: No EXAM: BP 120/62 Pulse 62 Resp 14 Wt 54.2 kg (119 lb 7.8 oz) SpO2 98% BMI 24.97 kg/m? PHYSICAL EXAM: Physical Exam Vitals reviewed. Constitutional: Appearance: Normal appearance. HENT: Head: Normocephalic. Musculoskeletal: General: Normal range of motion. Comments: Right ankle full ROM except lateral movement is inhibited quite a bit. Skin: Comments: Right posterior heel with scaly, excoriated. Itchy. No draina (more content not included)... Normal [facility] CNPNon 12-04-2023 CNPN Telephone (FAMPWS) -- ANAYA WILSON ([id number]) 1940 Sheryl Carty* Date Time Provider Department 12/04/23 [facility] During your visit today, we recorded the following information about you: Armida Warren RN 12/04/2023 8:45 AM Signed Patient calls to request appointment with Kinga Goldberg for worsening flare up of psoriatic arthritis flare up. Patient reports that she now has another area on the right foot that is painful with small (less than a pencil eraser) red raised areas. Afebrile. Follow up scheduled per patient request. Nurse triage recommends within 24 hours. Scheduled first available with provider. Patient wanting to have looked at by same provider as previously. Armida Warren RN Allergies As of Date: 12/04/2023 Noted Allergy Reaction CAFFEINE 12/01/2004 CODEINE 12/01/2004 DARVOCET A500 (PROPOXYPHENE N-REINALDO*12/01/2004 11 - Vomiting DEMEROL (MEPERIDINE (PF)) 07/07/2015 11 - Vomiting ENTEX (PHENYLEPHRINE-GUAIFENESIN ) 12/01/2004 EPHEDRINE 12/01/2004 14 - Other: See Comments Comments: Heart palpitations GRISEOFULVIN 12/01/2004 MILK CONTAINING PRODUCTS (DAIRY) 11/15/2016 5 - Intolerance Comments: Nasal stuffiness TRAMADOL 12/21/2011 14 - Other: See Comments Comments: Nausea, vomiting, dry heaves after carpal tunnel surgery VICODIN (HYDROCODONE-ACETAMINOPHE* 07/07/2015 9 - Itching ZOLOFT (SERTRALINE HCL) 09/25/2006 1 - Mental Status Change Comments: Increased anxiety and feeling of depression. Started in 2005, not noted then Date Reviewed: 11/25/2023 Reviewed by: Kinga Goldberg APRN.SHIP KEEPER - Fully Assessed Reason for Visit: Patient Update [1234] Prescriptions as of 12/04/2023 - clobetasol (TEMOVATE) 0.05 % ointment Apply to affected area two times a day. To posterior ankle - hydrocortisone (ANUSOL-HC) 25 mg suppository 1 Suppository by RECTAL route two times a day as needed (hemorrhoids/rectal pain). - losartan (COZAAR) 25 mg tablet Take 1 tablet by mouth once daily. - FLUoxetine (PROZAC) 10 mg capsule Take 1 capsule by mouth once daily. - loratadine (CLARITIN) 10 mg tablet Take 1 tablet by mouth once daily. - donepezil (ARICEPT) 10 mg tablet Take 1 tablet by mouth daily at bedtime. - famotidine (PEPCID) 10 mg tablet Take 1 tablet by mouth two times a day. - Azelaic Acid (FINACEA) 15 % gel Apply to affected area once daily. - amitriptyline (ELAVIL) 10 mg tablet Take 1 tablet by mouth daily at bedtime. - meloxicam (MOBIC) 15 mg tablet Take 1 tablet by mouth once daily. - fluorometholone (FML LIQUID FILM) 0.1 % ophthalmic suspension Use 1 Drop in both eyes once daily. - FOLIC ACID ORAL Take by mouth. Meds Comments as of 07/12/2019: 09/07/16: Not taking motrin or naprosyn. MS Does not take Naprosyn or Ibuprofen [facility] 9-May 27, 2019 Patient currently taking her prescription medications as prescriped. Esperanza Singleton RN 2019 Pt. stating has not been taking polyethylene glycol. Shonna Cervantes RN. Problem List As Of Date 12/04/2023 Noted Resolved Other disorders of synovium, tendon, and bursa(*01/08/2005 05/30/2015 Chronic midline low back pain without sciatica *02/08/2005 Ganglion of joint [M67.40] 07/16/2005 09/19/2016 Abdominal pain, right upper quadrant [R10.11] 02/01/2012 Unspecified constipation [K59.00] 02/01/2012 Diverticulosis of colon (without mention of hem* 05/30/2015 Hemorrhage of rectum and anus [K62.5] 09/19/2016 Cough [R05.9] 07/23/2008 02/01/2012 Rectocele [N81.6] 01/05/2011 Acute tracheobronchitis [J20.9] 03/07/2011 02/01/2012 Carpal tunnel syndrome [G56.00] 11/19/2011 09/19/2016 Osteopenia [M85.80] 10/28/2012 Adjustment disorder with anxiety [F43.22] 05/12/2013 Dyslipidemia [E78.5] 03/18/2015 Osteoarthritis of spine with radiculopathy, cer*05/30/2015 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 Psoriasis [L40.9] 05/23/2016 Dry cough [R05.8] 05/23/2016 Skin tear of lower leg without complication [S8*05/23/2016 09/19/2016 Abdominal pain [R10.9] 11/01/2016 05/20/2017 Postmenopausal atrophic vaginitis [N95.2] 11/01/2016 Cystitis [N30.90] 11/01/2016 05/20/2017 Primary osteoarthritis of left knee [M17.12] 05/10/2017 06/05/2017 Irritable bowel syndrome [K58.9] 05/20/2017 Urge incontinence [N39.41] 05/20/2017 Chronic pain of right knee [M25.561, G89.29] 05/20/2017 07/04/2017 OA (osteoarthritis) of knee [M17.9] 06/04/2017 06/05/2017 Status post total knee replacement using cement*07/04/2017 Status post total right knee replacement [Z96.6*09/07/2017 Adjustment insomnia [F51.02] 12/30/2017 Situational depression [F43.21] 12/30/2017 Hypertension, essential [I10] 12/30/2017 Hyperlipidemia, mixed [E78.2] 12/30/2017 Left lower quadrant pain [R10.32] 12/30/2017 Osteoarthritis of left knee [M17.12] 12/30/2017 Urinary frequency [R35.0] 02/03/2018 Chronic rhinitis [J (more content not included)... Normal [facility] ANAYA WILSON ([id number]) 1940 F [address]* Date Time Provider Department 11/28/23 [facility]G [facility] During your visit today, we recorded the following information about you: Kinga Goldberg APRN.SHIP KEEPER 11/28/2023 12:42 PM Signed Please let patient know that her x-ray of her ankle was normal. Misty Adorno LPN 11/28/2023 2:36 PM Signed Left message to call and speak with nurse. Jade Escalante LPN 11/28/2023 3:29 PM Signed Patient returned call and went over results from Tasneem Goldberg BAT PERSON with understanding. Allergies As of Date: 11/28/2023 Noted Allergy Reaction CAFFEINE 12/01/2004 CODEINE 12/01/2004 DARVOCET A500 (PROPOXYPHENE N-REINALDO*12/01/2004 11 - Vomiting DEMEROL (MEPERIDINE (PF)) 07/07/2015 11 - Vomiting ENTEX (PHENYLEPHRINE-GUAIFENESIN ) 12/01/2004 EPHEDRINE 12/01/2004 14 - Other: See Comments Comments: Heart palpitations GRISEOFULVIN 12/01/2004 MILK CONTAINING PRODUCTS (DAIRY) 11/15/2016 5 - Intolerance Comments: Nasal stuffiness TRAMADOL 12/21/2011 14 - Other: See Comments Comments: Nausea, vomiting, dry heaves after carpal tunnel surgery VICODIN (HYDROCODONE-ACETAMINOPHE* 07/07/2015 9 - Itching ZOLOFT (SERTRALINE HCL) 09/25/2006 1 - Mental Status Change Comments: Increased anxiety and feeling of depression. Started in 2005, not noted then Date Reviewed: 11/25/2023 Reviewed by: Kinga Goldberg APRN.SHIP KEEPER - Fully Assessed Prescriptions as of 11/28/2023 - methylPREDNISolone (MEDROL, ASTRID,) 4 mg Dose-Pack Follow dosing instructions, take with food. - clobetasol (TEMOVATE) 0.05 % ointment Apply to affected area two times a day. To posterior ankle - hydrocortisone (ANUSOL-HC) 25 mg suppository 1 Suppository by RECTAL route two times a day as needed (hemorrhoids/rectal pain). - losartan (COZAAR) 25 mg tablet Take 1 tablet by mouth once daily. - FLUoxetine (PROZAC) 10 mg capsule Take 1 capsule by mouth once daily. - loratadine (CLARITIN) 10 mg tablet Take 1 tablet by mouth once daily. - donepezil (ARICEPT) 10 mg tablet Take 1 tablet by mouth daily at bedtime. - famotidine (PEPCID) 10 mg tablet Take 1 tablet by mouth two times a day. - Azelaic Acid (FINACEA) 15 % gel Apply to affected area once daily. - amitriptyline (ELAVIL) 10 mg tablet Take 1 tablet by mouth daily at bedtime. - meloxicam (MOBIC) 15 mg tablet Take 1 tablet by mouth once daily. - fluorometholone (FML LIQUID FILM) 0.1 % ophthalmic suspension Use 1 Drop in both eyes once daily. - FOLIC ACID ORAL Take by mouth. Meds Comments as of 07/12/2019: 09/07/16: Not taking motrin or naprosyn. MS Does not take Naprosyn or Ibuprofen [facility] -May 27, 2019 Patient currently taking her prescription medications as prescriped. Esperanza Singleton RN 2019 Pt. stating has not been taking polyethylene glycol. Shonna Cervantes RN. Problem List As Of Date 11/28/2023 Noted Resolved Other disorders of synovium, tendon, and bursa(*01/08/2005 05/30/2015 Chronic midline low back pain without sciatica *02/08/2005 Ganglion of joint [M67.40] 07/16/2005 09/19/2016 Abdominal pain, right upper quadrant [R10.11] 02/01/2012 Unspecified constipation [K59.00] 02/01/2012 Diverticulosis of colon (without mention of hem* 05/30/2015 Hemorrhage of rectum and anus [K62.5] 09/19/2016 Cough [R05.9] 07/23/2008 02/01/2012 Rectocele [N81.6] 01/05/2011 Acute tracheobronchitis [J20.9] 03/07/2011 02/01/2012 Carpal tunnel syndrome [G56.00] 11/19/2011 09/19/2016 Osteopenia [M85.80] 10/28/2012 Adjustment disorder with anxiety [F43.22] 05/12/2013 Dyslipidemia [E78.5] 03/18/2015 Osteoarthritis of spine with radiculopathy, cer*05/30/2015 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 Psoriasis [L40.9] 05/23/2016 Dry cough [R05.8] 05/23/2016 Skin tear of lower leg without complication [S8*05/23/2016 09/19/2016 Abdominal pain [R10.9] 11/01/2016 05/20/2017 Postmenopausal atrophic vaginitis [N95.2] 11/01/2016 Cystitis [N30.90] 11/01/2016 05/20/2017 Primary osteoarthritis of left knee [M17.12] 05/10/2017 06/05/2017 Irritable bowel syndrome [K58.9] 05/20/2017 Urge incontinence [N39.41] 05/20/2017 Chronic pain of right knee [M25.561, G89.29] 05/20/2017 07/04/2017 OA (osteoarthritis) of knee [M17.9] 06/04/2017 06/05/2017 Status post total knee replacement using cement*07/04/2017 Status post total right knee replacement [Z96.6*09/07/2017 Adjustment insomnia [F51.02] 12/30/2017 Situational depression [F43.21] 12/30/2017 Hypertension, essential [I10] 12/30/2017 Hyperlipidemia, mixed [E78.2] 12/30/2017 Left lower quadrant pain [R10.32] 12/30/2017 Osteoarthritis of left knee [M17.12] 12/30/2017 Urinary frequency [R35.0] 02/03/2018 Chronic rhinitis [J31.0] Chronic obstructive pulmonary disease (HCC) [J4*10/08/2018 Chronic cough [R05.3] 10/08/2018 Sebaceous cyst [L72.3] 10/09/19 (more content not included)... Normal [facility] CNOVon 11-25-2023 CNOV Office Visit ([facility] ) -- ANAYA WILSON ([id number]) 1940 F [address]* Date Time Provider Department 11/25/23 12:40 PM [facility] During your visit today, we recorded the following information about you: Temperature Pulse Blood pressure Weight 97.9 degrees 62/minute 120/64 54 kg Kinga Goldberg, PLEASURE CRAFT SAILOR.SHIP KEEPER 11/25/2023 1:03 PM Signed This is a 83 year old female who presents today with: Patient presents with: Pain: Right foot, back of heel HISTORY OF PRESENT ILLNESS: Anaya Wilson is a 83 year old female. Patient presents with: Pain: Right foot, back of heel [facility] [employer] yesterday. When she got home, she noticed pain in distal lateral malleolus. Wears flats. Denies injury. Pain 5/10, hurts to dorso-flexion or plantar flexion foot. No instability. Never had this pain before. Iced it yesterday, no improvement. Did not take anything for it. No worse with pressure such a the mattress or sheet. Able to sleep with the pain. Was on methotrexate and saw Social Media Content Specialist. Quit seeing her and stopped medication about 1 months ago. 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 Dementia (HCC) Diverticulosis of colon (without mention of hemorrhage) Dry cough 05/23/2016 Ganglion of joint 07/16/2005 Generalized osteoarthrosis, unspecified site Hemorrhage of gastrointestinal tract, unspecified Hemorrhage of rectum and anus Hypertension Infection of left eye Irritable bowel syndrome Osteomalacia, unspecified Other and unspecified hyperlipidemia Pneumonia, organism unspecified(486) PONV (postoperative nausea and vomiting) Psoriatic arthritis (HCC) Rectocele 01/05/2011 Skin tear of lower leg without complication 05/23/2016 Sprain of unspecified site of sacroiliac region Unspecified constipation Urge incontinence mild PAST SURGICAL HISTORY Procedure Laterality Date ARTHRP KNE CONDYLEANDPLATU MEDIALANDLAT COMPARTMENTS Right 06/03/2017 Knee replacement, total COLONOSCOPY 05/10/2022 rectal mass COLONOSCOPY FLX DX W/COLLJ SPEC WHEN PFRMD 04/20/2002 Colonoscopy COLONOSCOPY FLX DX W/COLLJ SPEC WHEN PFRMD 07/25/2011 Colonoscopy EYE SURGERY HX JOINT REPLACEMENT HX NEUROPLASTY AND/TRANSPOS MEDIAN NRV CARPAL TUNNE 1979 Carpal tunnel decomp b/l hands NEUROPLASTY AND/TRANSPOS MEDIAN NRV CARPAL TUNNE 12/18/2011 RIGHT PAST SURGICAL HISTORY OF Left laser eye surgery for glaucoma SIGMOIDOSCOPY FLX DX W/COLLJ SPEC BR/WA IF PFRMD 06/23/2007 TOTAL ABDOMINAL HYSTERECT W/WO RMVL TUBE OVARY 1988 RUBI/BSO for fibroids and bleeding TOTAL KNEE REPLACEMENT Left 03/28/2020 VAGINAL HYSTERECTOMY ALLERGIES Caffeine, Codeine, Darvocet A500 [Propoxyphene N-Acetaminophen], Demerol [Meperidine (Pf)], Entex [Phenylephrine-Guaifenesin ], Ephedrine, Griseofulvin, Milk Containing Products (Dairy), Tramadol, Vicodin [Hydrocodone-Acetaminophen ], and Zoloft [Sertraline Hcl] MEDICATIONS Current Outpatient Medications Medication Sig hydrocortisone (ANUSOL-HC) 25 mg suppository 1 Suppository by RECTAL route two times a day as needed (hemorrhoids/rectal pain). losartan (COZAAR) 25 mg tablet Take 1 tablet by mouth once daily. FLUoxetine (PROZAC) 10 mg capsule Take 1 capsule by mouth once daily. loratadine (CLARITIN) 10 mg tablet Take 1 tablet by mouth once daily. donepezil (ARICEPT) 10 mg tablet Take 1 tablet by mouth daily at bedtime. famotidine (PEPCID) 10 mg tablet Take 1 tablet by mouth two times a day. Azelaic Acid (FINACEA) 15 % gel Apply to affected area once daily. amitriptyline (ELAVIL) 10 mg tablet Take 1 tablet by mouth daily at bedtime. meloxicam (MOBIC) 15 mg tablet Take 1 tablet by mouth once daily. fluorometholone (FML LIQUID FILM) 0.1 % ophthalmic suspension Use 1 Drop in both eyes once daily. FOLIC ACID ORAL Take by mouth. benzonatate (TESSALON PERLE) 100 mg capsule Take 2 capsules by mouth three times a day as needed. (Patient not taking: Reported on 11/13/2023) No current facility-administered medications for this visit. FAMILY HISTORY Problem Relation Age of Onset Heart Mother CHF Cancer Father prostate Psychiatry Father Cancer Brother No Known Problems Daughter No Known Problems Daughter No Known Problems Daughter Breast Cancer Maternal Aunt Colon Cancer No Family History Social History Tobacco Use Smoking status: Never Smokeless tobacco: Never Vaping Use Vaping status: Never Used Substance Use Topics Alcohol use: No Drug use: No EXAM: BP 120/64 Pulse 62 Temp 36.6 ?C (97.9 ?F) Wt 54 kg (119 lb) SpO2 97% BMI 24.87 kg/m? PHYSICAL EXAM: Physical E (more content not included)... Normal [facility] XR ANKLE 3V AP/LAT/OBL RTon 11-25-2023 XR ANKLE 3V AP/LAT/OBL RT * * *Final Report* * * DATE OF EXAM: Nov 25 2023 1:20PM WOX [id number] - XR ANKLE 3V AP/LAT/OBL RT / PROCEDURE REASON: Pain in lateral portion of right ankle * * * * Physician Interpretation * * * * EXAMINATION: XR ANKLE 3V AP/LAT/OBL RT CLINICAL HISTORY: Right ankle pain Technique: XR ANKLE 3V AP/LAT/OBL RT -- RIGHT with 3 views on 3 images Comparison: None RESULT: No acute fracture or dislocation. Joint spaces are maintained. IMPRESSION: No acute osseous abnormality Self Propelled Hot Mix Roller Operator: JAIME Transcribe Date/Time: Nov 28 2023 12:26P Dictated by : ESTRELLITA CHAVEZ MD This examination was interpreted and the report reviewed and electronically signed by: ESTRELLITA CHAVEZ MD on Nov 28 2023 12:27PM EST [id number] Normal [facility] CNOVon 11-13-2023 CNOV Office Visit ([facility] ) -- ANAYA WILSON ([id number]) 1940 F [address]* Date Time Provider Department 11/13/23 12:00 PM ANAMARIA PAUL During your visit today, we recorded the following information about you: Pulse Blood pressure Weight 54/minute 133/62 52 kg Anamaria Paul MD 11/13/2023 4:40 PM Signed REASON FOR VISIT: Pancreatic cyst HPI: Anaya Wilson is a 83 year old female who presents on the request of Dr. Mendez for evaluation of pancreatic cyst. She is a pleasant 83 years old female who appears healthy and came with her of 64 years. She had abdominal pain which prompted some investigation including right upper ultrasound 05/08/2023 which was unremarkable. MRCP 05/24/2023 described 1.8 cm cystic lesion in the pancreatic body without definite communication with the pancreatic duct. No suspicious enhancing lesion. CT scan of the abdomen pelvis 09/23/2023 described 1.7 x 1.4 cm cystic mass in the pancreatic body. Review of medical record showed that she had MRCP 12/27/2022 which showed 1.8 x 1.8 x 1.5 cm cystic lesion with several thin septations in the posterior body of the pancreas without pancreas duct dilation or divisum. The patient is completely asymptomatic today. Denies abdominal pain, nausea vomiting or weight loss. Her cousin had negative cancer and in her late 50s. Does not smoke cigarettes and drink alcohol socially. She is and has 3 daughters. She retired in 2007 from [employer]. Previous work up includes: 05/10/[address] Evelyn: Impression: - Preparation of the colon was fair. - Rectal mass 0 to 2 cm from the anal verge. - One large polyp in the rectum. Biopsied. Looks malignant, bleeds like crazy. - The examination was otherwise normal. A. Rectum, mass, biopsies: - Negative for malignancy; see comment - Fragments of colonic mucosa with ischemic change and ulceration. Diagnosis Comment The biopsy shows colonic mucosa with mucosal prolapse, ulceration and ischemic type changes. There is no evidence of dysplasia or malignancy. Multiple deeper tissue levels have been examined. The presence of a mass lesion is noted. 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 Clinical correlation is recommended. 05/08/2023 US abd spleen: No acute abnormalities in the right upper quadrant. No splenomegaly. 05/24/2023 MRCP: Pancreas: No pancreatic ductal dilatation. Again seen is a loculated cystic lesion in the pancreatic body measuring 1.8 cm (8:25), without definite communication to the duct. No suspicious enhancing nodules. IMPRESSION: Unchanged lobulated cystic lesion in the pancreatic body, without definite communication to the nondilated duct. No suspicious enhancing nodules. Differential includes a sidebranch IPMN or an oligocystic serous adenoma. 09/23/2023 CTAP w/ IV contrast: Pancreas: There is again noted be a cystic mass in the posterior aspect of the mid body of the pancreas. It measures 1.4 x 1.7 cm on axial image 04/26. Previously measured 1.8 cm on MRI from 05/22/2023. IMPRESSION: 1. 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 It appears to be similar in size to the previous MRI 2. No acute changes are seen Latest Ref Rng 09/23/2023 10/22/2023 WBC 3.70 - 11.00 k/uL 5.51 RBC 3.90 - 5.20 m/uL 4.58 Hemoglobin 11.5 - 15.5 g/dL 13.9 Hematocrit 36.0 - 46.0 % 42.2 MCV 80.0 - 100.0 fL 92.1 MCH 26.0 - 34.0 pg 30.3 MCHC 30.5 - 36.0 g/dL 32.9 RDW-CV 11.5 - 15.0 % 14.0 Platelet Count 150 - 400 k/uL 251 MPV 9.0 - 12.7 fL 9.9 Neut% % 67.5 Abs Neut (ANC) 1.45 - 7.50 k/uL 3.72 Lymph% % 22.0 Abs Lymph 1.00 - 4.00 k/uL 1.21 Phillips% % 8.9 Abs Phillips <0.87 k/uL 0.49 Eosin% % 0.5 Abs Eosin <0.46 k/uL 0.03 Baso% % 0.4 Abs Baso <0.11 k/uL <0.03 Immature Gran % % 0.7 IMMATURE GRANS (ABS) <0.10 k/uL 0.04 NRBC /100 WBC 0.0 Absolute nRBC <0.01 k/uL <0.01 DTYPE Auto Protein, Total 6.3 - 8.0 g/dL 6.7 Albumin 3.9 - 4.9 g/dL 4.0 Calcium 8.5 - 10.2 mg/dL 9.2 Bilirubin, Total 0.2 - 1.3 mg/dL 0.5 Alkaline Phosphatase 34 - 123 U/L 119 AST 13 - 35 U/L 24 ALT 7 - 38 U/L 17 Glucose 74 - 99 mg/dL 101 (H) BUN 7 - 21 mg/dL 12 Creatinine 0.58 - 0.96 mg/dL 0.60 Sodium 136 - 144 mmol/L 133 (L) Potassium 3.7 - 5.1 mmol/L 3.7 Chloride 98 - 107 mmol/L 96 (L) CO2 22 - 30 mmol/L 26 Anion Gap 8 - 15 mmol/L 11 eGFR >=60 mL/min/1.73m? 89 AFP <11.0 ng/mL <3.0 AFP, Serum (Tumor Marker) <9.00 ng/mL 2.57 Magnesium 1.7 - 2.3 mg/dL 2.0 Lipase 16 - 61 U/L 85 (H) 38 JAYLA High Sensitivity <12 ng/L 11 CEA <=2.9 ng/mL 3.7 (H) CA19-9 <36.0 U/mL 83.0 (H) ALLERGIES Al (more content not included)... Normal [facility] HISTORY PHYSICALon 09-11-202 4 HISTORY PHYSICAL HNO ID: [id number] Author: ANAMARIA PAUL MD Service: ? Author Type: Physician Type: H&P Filed: 11/13/2023 16:40 Note Text: REASON FOR VISIT: Pancreatic cyst HPI: Anaya Wilson is a 83 year old female who presents on the request of Dr. Mendez for evaluation of pancreatic cyst. She is a pleasant 83 years old female who appears healthy and came with her of 64 years. She had abdominal pain which prompted some investigation including right upper ultrasound 05/08/2023 which was unremarkable. MRCP 05/24/2023 described 1.8 cm cystic lesion in the pancreatic body without definite communication with the pancreatic duct. No suspicious enhancing lesion. CT scan of the abdomen pelvis 09/23/2023 described 1.7 x 1.4 cm cystic mass in the pancreatic body. Review of medical record showed that she had MRCP 12/27/2022 which showed 1.8 x 1.8 x 1.5 cm cystic lesion with several thin septations in the posterior body of the pancreas without pancreas duct dilation or divisum. The patient is completely asymptomatic today. Denies abdominal pain, nausea vomiting or weight loss. Her cousin had negative cancer and in her late 50s. Does not smoke cigarettes and drink alcohol socially. She is and has 3 daughters. She retired in 2007 from [employer]. Previous work up includes: 05/10/[address] Rivas: Impression: - Preparation of the colon was fair. - Rectal mass 0 to 2 cm from the anal verge. - One large polyp in the rectum. Biopsied. Looks malignant, bleeds like crazy. - The examination was otherwise normal. A. Rectum, mass, biopsies: - Negative for malignancy; see comment - Fragments of colonic mucosa with ischemic change and ulceration. Diagnosis Comment The biopsy shows colonic mucosa with mucosal prolapse, ulceration and ischemic type changes. There is no evidence of dysplasia or malignancy. Multiple deeper tissue levels have been examined. The presence of a mass lesion is noted. 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 Clinical correlation is recommended. 05/08/2023 US abd spleen: No acute abnormalities in the right upper quadrant. No splenomegaly. 05/24/2023 MRCP: Pancreas: No pancreatic ductal dilatation. Again seen is a loculated cystic lesion in the pancreatic body measuring 1.8 cm (8:25), without definite communication to the duct. No suspicious enhancing nodules. IMPRESSION: Unchanged lobulated cystic lesion in the pancreatic body, without definite communication to the nondilated duct. No suspicious enhancing nodules. Differential includes a sidebranch IPMN or an oligocystic serous adenoma. 09/23/2023 CTAP w/ IV contrast: Pancreas: There is again noted be a cystic mass in the posterior aspect of the mid body of the pancreas. It measures 1.4 x 1.7 cm on axial image 04/26. Previously measured 1.8 cm on MRI from 05/22/2023. IMPRESSION: 1. 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 It appears to be similar in size to the previous MRI 2. No acute changes are seen Latest Ref Rng 09/23/2023 10/22/2023 WBC 3.70 - 11.00 k/uL 5.51 RBC 3.90 - 5.20 m/uL 4.58 Hemoglobin 11.5 - 15.5 g/dL 13.9 Hematocrit 36.0 - 46.0 % 42.2 MCV 80.0 - 100.0 fL 92.1 MCH 26.0 - 34.0 pg 30.3 MCHC 30.5 - 36.0 g/dL 32.9 RDW-CV 11.5 - 15.0 % 14.0 Platelet Count 150 - 400 k/uL 251 MPV 9.0 - 12.7 fL 9.9 Neut% % 67.5 Abs Neut (ANC) 1.45 - 7.50 k/uL 3.72 Lymph% % 22.0 Abs Lymph 1.00 - 4.00 k/uL 1.21 Phillips% % 8.9 Abs Phillips <0.87 k/uL 0.49 Eosin% % 0.5 Abs Eosin <0.46 k/uL 0.03 Baso% % 0.4 Abs Baso <0.11 k/uL <0.03 Immature Gran % % 0.7 IMMATURE GRANS (ABS) <0.10 k/uL 0.04 NRBC /100 WBC 0.0 Absolute nRBC <0.01 k/uL <0.01 DTYPE Auto Protein, Total 6.3 - 8.0 g/dL 6.7 Albumin 3.9 - 4.9 g/dL 4.0 Calcium 8.5 - 10.2 mg/dL 9.2 Bilirubin, Total 0.2 - 1.3 mg/dL 0.5 Alkaline Phosphatase 34 - 123 U/L 119 AST 13 - 35 U/L 24 ALT 7 - 38 U/L 17 Glucose 74 - 99 mg/dL 101 (H) BUN 7 - 21 mg/dL 12 Creatinine 0.58 - 0.96 mg/dL 0.60 Sodium 136 - 144 mmol/L 133 (L) Potassium 3.7 - 5.1 mmol/L 3.7 Chloride 98 - 107 mmol/L 96 (L) CO2 22 - 30 mmol/L 26 Anion Gap 8 - 15 mmol/L 11 eGFR >=60 mL/min/1.73m? 89 AFP <11.0 ng/mL <3.0 AFP, Serum (Tumor Marker) <9.00 ng/mL 2.57 Magnesium 1.7 - 2.3 mg/dL 2.0 Lipase 16 - 61 U/L 85 (H) 38 JAYLA High Sensitivity <12 ng/L 11 CEA <=2.9 ng/mL 3.7 (H) CA19-9 <36.0 U/mL 83.0 (H) ALLERGIES Allergen Reactions Caffeine Codeine Darvocet A500 [Prop* Vomiting Demerol [Meperidine* Vomiting Entex [Phenylephrin* Ephedrine Other: See Comments Heart palpitations Griseofulvin Milk Containing Pro* Intolerance Nasal stuffiness Tramadol Other: See C (more content not included)... Normal [facility] [place] 10-29-2023 CNPN Telephone ([facility]) -- ANAYA WILSON ([id number]) 1940 [address] Date Time Provider Department 10/29/23 KYM LEWIS [facility] During your visit today, we recorded the following information about you: Kym Lewis PA 10/29/2023 7:06 AM Signed Please let patient know she is positive for COVID-19. Isolate until 24 hours fever free and symptoms improving. May continue OTC medications as needed. Johanna Kilpatrick MA 10/29/2023 8:34 AM Signed Patient given results and verbalized understanding of instructions given. Johanna Kilpatrick MA Allergies As of Date: 10/29/2023 Noted Allergy Reaction CAFFEINE 12/01/2004 CODEINE 12/01/2004 DARVOCET A500 (PROPOXYPHENE N-REINALDO*12/01/2004 11 - Vomiting DEMEROL (MEPERIDINE (PF)) 07/07/2015 11 - Vomiting ENTEX (PHENYLEPHRINE-GUAIFENESIN ) 12/01/2004 EPHEDRINE 12/01/2004 14 - Other: See Comments Comments: Heart palpitations GRISEOFULVIN 12/01/2004 MILK CONTAINING PRODUCTS (DAIRY) 11/15/2016 5 - Intolerance Comments: Nasal stuffiness TRAMADOL 12/21/2011 14 - Other: See Comments Comments: Nausea, vomiting, dry heaves after carpal tunnel surgery VICODIN (HYDROCODONE-ACETAMINOPHE* 07/07/2015 9 - Itching ZOLOFT (SERTRALINE HCL) 09/25/2006 1 - Mental Status Change Comments: Increased anxiety and feeling of depression. Started in 2005, not noted then Date Reviewed: 10/28/2023 Reviewed by: Harriet Ruiz MA - Fully Assessed Reason for Visit: Results [95] Prescriptions as of 10/29/2023 - FLUoxetine (PROZAC) 10 mg capsule Take 1 capsule by mouth once daily. - loratadine (CLARITIN) 10 mg tablet Take 1 tablet by mouth once daily. - donepezil (ARICEPT) 10 mg tablet Take 1 tablet by mouth daily at bedtime. - famotidine (PEPCID) 10 mg tablet Take 1 tablet by mouth two times a day. - benzonatate (TESSALON PERLE) 100 mg capsule Take 2 capsules by mouth three times a day as needed. - hydrocortisone (ANUSOL-HC) 25 mg suppository 1 Suppository by RECTAL route two times a day as needed (hemorrhoids/rectal pain). - Azelaic Acid (FINACEA) 15 % gel Apply to affected area once daily. - losartan (COZAAR) 25 mg tablet TAKE 1 TABLET BY MOUTH EVERY DAY - amitriptyline (ELAVIL) 10 mg tablet Take 1 tablet by mouth daily at bedtime. - meloxicam (MOBIC) 15 mg tablet Take 1 tablet by mouth once daily. - fluorometholone (FML LIQUID FILM) 0.1 % ophthalmic suspension Use 1 Drop in both eyes once daily. - FOLIC ACID ORAL Take by mouth. Meds Comments as of 07/12/2019: 09/07/16: Not taking motrin or naprosyn. MS Does not take Naprosyn or Ibuprofen [facility] -May 27, 2019 Patient currently taking her prescription medications as prescriped. Esperanza Singleton RN 2019 Pt. stating has not been taking polyethylene glycol. Shonna Cervantes RN. Problem List As Of Date 10/29/2023 Noted Resolved Other disorders of synovium, tendon, and bursa(*01/08/2005 05/30/2015 Chronic midline low back pain without sciatica *02/08/2005 Ganglion of joint [M67.40] 07/16/2005 09/19/2016 Abdominal pain, right upper quadrant [R10.11] 02/01/2012 Unspecified constipation [K59.00] 02/01/2012 Diverticulosis of colon (without mention of hem* 05/30/2015 Hemorrhage of rectum and anus [K62.5] 09/19/2016 Cough [R05.9] 07/23/2008 02/01/2012 Rectocele [N81.6] 01/05/2011 Acute tracheobronchitis [J20.9] 03/07/2011 02/01/2012 Carpal tunnel syndrome [G56.00] 11/19/2011 09/19/2016 Osteopenia [M85.80] 10/28/2012 Adjustment disorder with anxiety [F43.22] 05/12/2013 Dyslipidemia [E78.5] 03/18/2015 Osteoarthritis of spine with radiculopathy, cer*05/30/2015 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 Psoriasis [L40.9] 05/23/2016 Dry cough [R05.8] 05/23/2016 Skin tear of lower leg without complication [S8*05/23/2016 09/19/2016 Abdominal pain [R10.9] 11/01/2016 05/20/2017 Postmenopausal atrophic vaginitis [N95.2] 11/01/2016 Cystitis [N30.90] 11/01/2016 05/20/2017 Primary osteoarthritis of left knee [M17.12] 05/10/2017 06/05/2017 Irritable bowel syndrome [K58.9] 05/20/2017 Urge incontinence [N39.41] 05/20/2017 Chronic pain of right knee [M25.561, G89.29] 05/20/2017 07/04/2017 OA (osteoarthritis) of knee [M17.9] 06/04/2017 06/05/2017 Status post total knee replacement using cement*07/04/2017 Status post total right knee replacement [Z96.6*09/07/2017 Adjustment insomnia [F51.02] 12/30/2017 Situational depression [F43.21] 12/30/2017 Hypertension, essential [I10] 12/30/2017 Hyperlipidemia, mixed [E78.2] 12/30/2017 Left lower quadrant pain [R10.32] 12/30/2017 Osteoarthritis of left knee [M17.12] 12/30/2017 Urinary frequency [R35.0] 02/03/2018 Chronic rhinitis [J31.0] Chronic obstructive pulmonary disease (HCC) [J4*10/08/2018 Chronic cough [R05.3] 10/08/2018 Sebaceous cyst [L72.3] 10/08/2018 Inflammatory arthritis [M19.90] 04/08/2019 Radiculopathy, cervical flakito (more content not included)... Normal [facility] CNOVon 10-28-2023 CNOV Office Visit (UCWSTR ) -- ANAYA WILSON ([id number]) 1940 [address] [employer] Date Time Provider Department 10/28/23 11:15 AM KYM LEWIS [facility] During your visit today, we recorded the following information about you: Temperature Pulse Respiration Blood pressure 98.3 degrees 60/minute 21/minute 120/60 Weight 52.8 kg Kym Lewis PA 10/28/2023 11:15 AM Signed This note was created using Task Messenger. Subjective Anaya Wilson is a 83 year old female. HPI 83-year-old female presents for cough. Patient has had a cough x 2 days. She states it is a dry cough. She has not had any fevers, nasal congestion, sore throat, vomiting or diarrhea. Still able to eat and drink. No chest pain or shortness of breath. recently tested positive for COVID. She would like tested for this. She has not taken anything [id number] for her symptoms. She denies any other complaint. PAST MEDICAL HISTORY No date: Abdominal pain, right upper quadrant No date: Acute bronchitis No date: Acute pharyngitis No date: Arthritis Comment: neck No date: Burn of unspecified degree of unspecified site of lower limb (leg) 11/19/2011: Carpal tunnel syndrome No date: Chronic rhinitis 08/2018: COPD, mild (HCC) No date: Dementia ([facility]) No date: Diverticulosis of colon (without mention of hemorrhage) 05/23/2016: Dry cough 07/16/2005: Ganglion of joint No date: Generalized osteoarthrosis, unspecified site No date: Hemorrhage of gastrointestinal tract, unspecified No date: Hemorrhage of rectum and anus No date: Hypertension No date: Infection of left eye No date: Irritable bowel syndrome No date: Osteomalacia, unspecified No date: Other and unspecified hyperlipidemia No date: Pneumonia, organism unspecified(486) No date: PONV (postoperative nausea and vomiting) No date: Psoriatic arthritis (HCC) 01/05/2011: Rectocele 05/23/2016: Skin tear of lower leg without complication No date: Sprain of unspecified site of sacroiliac region No date: Unspecified constipation No date: Urge incontinence Comment: mild PAST SURGICAL HISTORY 06/03/2017: ARTHRP KNE CONDYLEANDPLATU MEDIALANDLAT COMPARTMENTS; Right Comment: Knee replacement, total 05/10/2022: COLONOSCOPY Comment: rectal mass 04/20/2002: COLONOSCOPY FLX DX W/COLLJ SPEC WHEN PFRMD Comment: Colonoscopy 07/25/2011: COLONOSCOPY FLX DX W/COLLJ SPEC WHEN PFRMD Comment: Colonoscopy No date: EYE SURGERY HX No date: JOINT REPLACEMENT HX 1979: NEUROPLASTY AND/TRANSPOS MEDIAN NRV CARPAL TUNNE Comment: Carpal tunnel decomp b/l hands 12/18/2011: NEUROPLASTY AND/TRANSPOS MEDIAN NRV CARPAL TUNNE Comment: RIGHT No date: PAST SURGICAL HISTORY OF; Left Comment: laser eye surgery for glaucoma 06/23/2007: SIGMOIDOSCOPY FLX DX W/COLLJ SPEC BR/WA IF PFRMD 1988: TOTAL ABDOMINAL HYSTERECT W/WO RMVL TUBE OVARY Comment: RUBI/BSO for fibroids and bleeding 03/28/2020: TOTAL KNEE REPLACEMENT; Left No date: VAGINAL HYSTERECTOMY ALLERGIES Caffeine, Codeine, Darvocet A500 [Propoxyphene N-Acetaminophen], Demerol [Meperidine (Pf)], Entex [Phenylephrine-Guaifenesin ], Ephedrine, Griseofulvin, Milk Containing Products (Dairy), Tramadol, Vicodin [Hydrocodone-Acetaminophen ], and Zoloft [Sertraline Hcl] MEDICATIONS FLUoxetine (PROZAC) 10 mg capsule Take 1 capsule by mouth once daily. loratadine (CLARITIN) 10 mg tablet Take 1 tablet by mouth once daily. donepezil (ARICEPT) 10 mg tablet Take 1 tablet by mouth daily at bedtime. famotidine (PEPCID) 10 mg tablet Take 1 tablet by mouth two times a day. hydrocortisone (ANUSOL-HC) 25 mg suppository 1 Suppository by RECTAL route two times a day as needed (hemorrhoids/rectal pain). Azelaic Acid (FINACEA) 15 % gel Apply to affected area once daily. losartan (COZAAR) 25 mg tablet TAKE 1 TABLET BY MOUTH EVERY DAY amitriptyline (ELAVIL) 10 mg tablet Take 1 tablet by mouth daily at bedtime. meloxicam (MOBIC) 15 mg tablet Take 1 tablet by mouth once daily. fluorometholone (FML LIQUID FILM) 0.1 % ophthalmic suspension Use 1 Drop in both eyes once daily. FOLIC ACID ORAL Take by mouth. benzonatate (TESSALON PERLE) 100 mg capsule Take 2 capsules by mouth three times a day as needed. (Patient not taking: Reported on 10/28/2023) FAMILY HISTORY Problem Relation Age of Onset Heart Mother CHF Cancer Father prostate Psychiatry Father Cancer Brother No Known Problems Daughter No Known Problems Daughter No Known Problems Daughter Breast Cancer Maternal Aunt Social History Tobacco Use Smoking status: Never Smokeless tobacco: Never Vaping Use Vaping status: Never Used Substance Use Topics Alcohol use: No Drug use: No Review of Systems Constitutional: Negative for chills and fever. HENT: Negative for congestion, ear pain and sore throat. Respiratory: Positive for cough. Negative for shortness of breat (more content not included)... Normal [facility] SARS-CoV-2 RNA Resp Ql PRABHA+p jarad 10-28-2023 SARS-CoV-2 (COVID-19) RNA PRABHA+probe Ql (Resp) COVID 19 RESULT: Detected The method used is RT-PCR or an equivalent NAAT method. Reference Range (the expected result in uninfected individuals): Not detected Normal [facility] Comment on above: Performed By: #### 9 4500-6 #### [facility] CLIA [id number] [address] [place] [address] [place] Rachele 10-24-2023 ELA Telephone (KRISTIN) -- ANAYA WILSON ([id number]) 1940 [address] [employer] Date Time Provider Department 10/24/23 ANAMARIA PAUL During your visit today, we recorded the following information about you: Angela Camposa 10/24/2023 10:31 AM Signed Spouse calling for who was seen by Dr. Mendez. Stating, Dr. Mendez is referring for elevated levels. Also stating PT has tumor in pancreas? First available appt was scheduled for Nov 19. Pt lives in [place], [place]. Please review and advise if PT needs earlier appt. Thank you, Mary Miranda RN 10/24/2023 10:39 AM Signed This pt needs to be seen in pancreas clinic. Please schedule on 11/13/2023. Thank you, Mary Miranda RN Kitty Campos 10/24/2023 11:06 AM Signed Scheduled, per message below. Thank you, Allergies As of Date: 10/24/2023 Noted Allergy Reaction CAFFEINE 12/01/2004 CODEINE 12/01/2004 DARVOCET A500 (PROPOXYPHENE N-REINALDO*12/01/2004 11 - Vomiting DEMEROL (MEPERIDINE (PF)) 07/07/2015 11 - Vomiting ENTEX (PHENYLEPHRINE-GUAIFENESIN ) 12/01/2004 EPHEDRINE 12/01/2004 14 - Other: See Comments Comments: Heart palpitations GRISEOFULVIN 12/01/2004 MILK CONTAINING PRODUCTS (DAIRY) 11/15/2016 5 - Intolerance Comments: Nasal stuffiness TRAMADOL 12/21/2011 14 - Other: See Comments Comments: Nausea, vomiting, dry heaves after carpal tunnel surgery VICODIN (HYDROCODONE-ACETAMINOPHE* 07/07/2015 9 - Itching ZOLOFT (SERTRALINE HCL) 09/25/2006 1 - Mental Status Change Comments: Increased anxiety and feeling of depression. Started in 2005, not noted then Date Reviewed: 10/22/2023 Reviewed by: Elen Moore LPN - Fully Assessed Reason for Visit: Appointment [186] Cmt: Needs pancreas clinic Prescriptions as of 10/24/2023 - FLUoxetine (PROZAC) 10 mg capsule Take 1 capsule by mouth once daily. - donepezil (ARICEPT) 10 mg tablet Take 1 tablet by mouth daily at bedtime. - famotidine (PEPCID) 10 mg tablet Take 1 tablet by mouth two times a day. - benzonatate (TESSALON PERLE) 100 mg capsule Take 2 capsules by mouth three times a day as needed. - hydrocortisone (ANUSOL-HC) 25 mg suppository 1 Suppository by RECTAL route two times a day as needed (hemorrhoids/rectal pain). - Azelaic Acid (FINACEA) 15 % gel Apply to affected area once daily. - losartan (COZAAR) 25 mg tablet TAKE 1 TABLET BY MOUTH EVERY DAY - amitriptyline (ELAVIL) 10 mg tablet Take 1 tablet by mouth daily at bedtime. - loratadine (CLARITIN) 10 mg tablet Take 1 tablet by mouth once daily. - meloxicam (MOBIC) 15 mg tablet Take 1 tablet by mouth once daily. - fluorometholone (FML LIQUID FILM) 0.1 % ophthalmic suspension Use 1 Drop in both eyes once daily. - FOLIC ACID ORAL Take by mouth. Meds Comments as of 07/12/2019: 09/07/16: Not taking motrin or naprosyn. MS Does not take Naprosyn or Ibuprofen [facility] -May 27, 2019 Patient currently taking her prescription medications as prescriped. Esperanza Singleton RN 2019 Pt. stating has not been taking polyethylene glycol. Shonna Cervantes RN. Problem List As Of Date 10/24/2023 Noted Resolved Other disorders of synovium, tendon, and bursa(*01/08/2005 05/30/2015 Chronic midline low back pain without sciatica *02/08/2005 Ganglion of joint [M67.40] 07/16/2005 09/19/2016 Abdominal pain, right upper quadrant [R10.11] 02/01/2012 Unspecified constipation [K59.00] 02/01/2012 Diverticulosis of colon (without mention of hem* 05/30/2015 Hemorrhage of rectum and anus [K62.5] 09/19/2016 Cough [R05.9] 07/23/2008 02/01/2012 Rectocele [N81.6] 01/05/2011 Acute tracheobronchitis [J20.9] 03/07/2011 02/01/2012 Carpal tunnel syndrome [G56.00] 11/19/2011 09/19/2016 Osteopenia [M85.80] 10/28/2012 Adjustment disorder with anxiety [F43.22] 05/12/2013 Dyslipidemia [E78.5] 03/18/2015 Osteoarthritis of spine with radiculopathy, cer*05/30/2015 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 Psoriasis [L40.9] 05/23/2016 Dry cough [R05.8] 05/23/2016 Skin tear of lower leg without complication [S8*05/23/2016 09/19/2016 Abdominal pain [R10.9] 11/01/2016 05/20/2017 Postmenopausal atrophic vaginitis [N95.2] 11/01/2016 Cystitis [N30.90] 11/01/2016 05/20/2017 Primary osteoarthritis of left knee [M17.12] 05/10/2017 06/05/2017 Irritable bowel syndrome [K58.9] 05/20/2017 Urge incontinence [N39.41] 05/20/2017 Chronic pain of right knee [M25.561, G89.29] 05/20/2017 07/04/2017 OA (osteoarthritis) of knee [M17.9] 06/04/2017 06/05/2017 Status post total knee replacement using cement*07/04/2017 Status post total right knee replacement [Z96.6*09/07/2017 Adjustment insomnia [F51.02] 12/30/2017 Situational depression [F43.21] 12/30/2017 Hypertension, essential [I10] 12/30/2017 Hyperlipidemia, mixed [E78.2] 12/30/2017 Left lower quadrant pain [R10.32] 12/30/2017 Osteoarthritis of left knee [M17.12] 12/30/2017 Urin (more content not included)... Normal [facility] AFP SerPl-ncon 10-22-2023 AFP [Mass/Vol] ng/mL Normal <11.0 [facility] Comment on above: Order Comment: Speci men Type: BLOOD SPECIMEN Ordering Facility: [facility] Address: [address] [place] [address], [place] [address] Result Comment: The Alpha-Fetoprotein test was performed using the Siemens Centaur XP chemiluminometric immunoassay method. Results obtained with different assay methods or kits cannot be used interchangeably. 2.57 The Alpha-Fetoprotein test was performed using the Soo Unicel DxI immunoenzymatic assay. Results obtained with different assay methods or kits cannot be used interchangeably. Performed By: #### 1 834-1 #### [facility] CLIA [id number] [address] [place] [address] [place] CEA SerPl-mCncon 10-22-2023 Carcinoembryonic Ag [Mass/Vol] 3.7 ng/mL High <=2.9 [facility] Comment on above: Order Comment: Speci men Type: BLOOD SPECIMEN Ordering Facility: [facility] Address: [address] [place] [address], [place] [address] Result Comment: Carc inoembryonic antigen test is used as an aid in monitoring response to treatment or recurrence in patients with established colorectal, breast, lung, prostatic, pancreatic, and ovarian carcinomas. Clinical correlation is required. The Carcinoembryonic antigen test was performed using the Soo [employer]abs Unicel DXI paramagnetic particle chemiluminescent immunoassay method. Results obtained with different assay methods or kits cannot be used interchangeably. Performed By: #### 2 039-6, 56882-5 #### [facility] CLIA [id number] [address] [place] [address] OF [place] CNOVon 10-22-2023 CNOV Office Visit (FAMPWS ) -- ANAYA WILSON ([id number]) 1940 [address] [employer] [address] Date Time Provider Department 10/22/23 12:00 PM EDENILSON NICHOLSON FAMPWS During your visit today, we recorded the following information about you: Temperature Pulse Respiration Blood pressure 97 degrees 60/minute 20/minute 130/76 Weight 54.4 kg Edenilson Nicholson DO 10/22/2023 12:22 PM Addendum Stool softener - Docusate sodium can take up to 2 capsules twice a day (start with 1 capsule a day and then increase to 2 capsules if needed once a day in the evening) Soak hands or feet in warm water with epsom salts (1/2 cup) for 15-20 minutes at a time. Edenilson Nicholson DO 10/28/2023 8:48 AM Signed CC: Anaya Wilson is a 83 year old female who presents to the office for follow up HPI: Seen in office on 07/16/23, at that visit Dx on 07/04/2023 with UTI, tx with Macrobid, states still +sx-urinary urgency and frequency. RUQ and epigastric pain for about a week, intermittently but now becoming more consistent. +nausea, no vomiting/diarrhea. Appetite is normal. Is random, no rhyme or reason. Is not worsened or better with eating. Has had some extra stress lately. 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 Is questioning nerves as a cause. Is not interested in therapy/psychology at this time. At last OFFICE VISIT on 09/18/2023 RUQ and epigastric pain for about 2 months, intermittently but now becoming more consistent. +nausea, no vomiting/diarrhea. Appetite is normal. Is random, no rhyme or reason. Is not worsened or better with eating. No blood in stool. Is having normal bowel movements. No new medications or changes. Memory, dementia, taking aricept 5 mg a day which was started 2-3 months ago. Tolerating medication well with SE. Mood, stable, taking the Prozac 10 mg, no concerns Currently Memory, dementia, was previously taking aricept 5 mg a day which was started 3-4 months ago. Tolerating medication well with SE. At last OFFICE VISIT her dose was increased to 10 mg a day which she is tolerating well Mood, stable, taking the Prozac 10 mg, no concerns. does feel that she is more calm and less irritable when something doesn't go her way HTN, overall seems to be well controlled. Taking Losartan without SE, no CP or dyspnea or dizziness/Lh or edema PAST MEDICAL HISTORY No date: Abdominal pain, right upper quadrant No date: Acute bronchitis No date: Acute pharyngitis No date: Arthritis Comment: neck No date: Burn of unspecified degree of unspecified site of lower limb (leg) 11/19/2011: Carpal tunnel syndrome No date: Chronic rhinitis 08/2018: COPD, mild (HCC) No date: Dementia (HCC) No date: Diverticulosis of colon (without mention of hemorrhage) 05/23/2016: Dry cough 07/16/2005: Ganglion of joint No date: Generalized osteoarthrosis, unspecified site No date: Hemorrhage of gastrointestinal tract, unspecified No date: Hemorrhage of rectum and anus No date: Hypertension No date: Infection of left eye No date: Irritable bowel syndrome No date: Osteomalacia, unspecified No date: Other and unspecified hyperlipidemia No date: Pneumonia, organism unspecified(486) No date: PONV (postoperative nausea and vomiting) No date: Psoriatic arthritis (HCC) 01/05/2011: Rectocele 05/23/2016: Skin tear of lower leg without complication No date: Sprain of unspecified site of sacroiliac region No date: Unspecified constipation No date: Urge incontinence Comment: mild PAST SURGICAL HISTORY 06/03/2017: ARTHRP KNE CONDYLEANDPLATU MEDIALANDLAT COMPARTMENTS; Right Comment: Knee replacement, total 05/10/2022: COLONOSCOPY Comment: rectal mass 04/20/2002: COLONOSCOPY FLX DX W/COLLJ SPEC WHEN PFRMD Comment: Colonoscopy 07/25/2011: COLONOSCOPY FLX DX W/COLLJ SPEC WHEN PFRMD Comment: Colonoscopy No date: EYE SURGERY HX No date: JOINT REPLACEMENT HX 1979: NEUROPLASTY AND/TRANSPOS MEDIAN NRV CARPAL TUNNE Comment: Carpal tunnel decomp b/l hands 12/18/2011: NEUROPLASTY AND/TRANSPOS MEDIAN NRV CARPAL TUNNE Comment: RIGHT No date: PAST SURGICAL HISTORY OF; Left Comment: laser eye surgery for glaucoma 06/23/2007: SIGMOIDOSCOPY FLX DX W/COLLJ SPEC BR/WA IF PFRMD 1988: TOTAL ABDOMINAL HYSTERECT W/WO RMVL TUBE OVARY Comment: RUBI/BSO for fibroids and bleeding 03/28/2020: TOTAL KNEE REPLACEMENT; Left No date: VAGINAL HYSTERECTOMY Social History: Social History Tobacco Use Smoking status: Never Smokeless tobacco: Never Vaping Use Vaping status: Never Used Substance Use Topics Alcohol use: No Drug use: No FAMILY HISTORY Problem Relation Age of Onset Heart Mother CHF Cancer Father prostate Psychiatry Father Cancer Brother No Known Problems Daughter No Known Problems Daughter No Known Problems Daughter Breast Cancer Maternal Aunt Current Outpatient prescrip (more content not included)... Normal [facility] Cancer Ag19-9 SerPl-aCncon 0 10-22-2023 Cancer Ag 19-9 Qn 83.0 [arb'U]/mL High <36.0 [facility] Comment on above: Order Comment: Wellington zuniga Type: BLOOD SPECIMEN Ordering Facility: [facility] Address: [address] [place] [address] Result Comment: [facility] er antigen 19-9 test is used as an aid in monitoring response to treatment or recurrence in patients with established pancreatic, hepatobiliary, or gastrointestinal malignancies. Clinical correlation is required. The CA 19-9 Antigen test was performed using the Soo [employer]abs Unicel DXI paramagnetic particle chemiluminescent immunoassay method. Results obtained with different assay methods or kits cannot be used interchangeably. Performed By: #### 2 039-6, 17786-6 #### [facility] CLIA [id number] [address] [place] [address] [place] Lipase SerPl-cCncon 10-22-19 24 Lipase [Catalytic activity/Vol] 38 U/L Normal 16-61 [facility] Comment on above: Order Comment: Wellington zuniga Type: BLOOD SPECIMEN Ordering Facility: [facility] Address: [address] [place] [address] Performed By: #### 3 040-3 #### [facility] CLIA [id number] [address] [place] [address] [place] CNPNon 09-24-2023 CNPN Telephone (AYAZWS) -- ANAYA WILSON ([id number]) 1940 [address] [employer] Date Time Provider Department 09/24/23 [facility] your visit today, we recorded the following information about you: Taty Aguilar LPN 09/24/2023 11:56 AM Signed Pt's calls to report pt was in [place] ER yesterday for vomiting. Pt was advised to follow up with GI. is requesting pcp review ER report and would like to know if pcp has a recommendation for a GI dr. Please review and advise. Taty Aguilar LPN Allergies As of Date: 09/24/2023 Noted Allergy Reaction CAFFEINE 12/01/2004 CODEINE 12/01/2004 DARVOCET A500 (PROPOXYPHENE N-REINALDO*12/01/2004 11 - Vomiting DEMEROL (MEPERIDINE (PF)) 07/07/2015 11 - Vomiting ENTEX (PHENYLEPHRINE-GUAIFENESIN ) 12/01/2004 EPHEDRINE 12/01/2004 14 - Other: See Comments Comments: Heart palpitations GRISEOFULVIN 12/01/2004 MILK CONTAINING PRODUCTS (DAIRY) 11/15/2016 5 - Intolerance Comments: Nasal stuffiness TRAMADOL 12/21/2011 14 - Other: See Comments Comments: Nausea, vomiting, dry heaves after carpal tunnel surgery VICODIN (HYDROCODONE-ACETAMINOPHE* 07/07/2015 9 - Itching ZOLOFT (SERTRALINE HCL) 09/25/2006 1 - Mental Status Change Comments: Increased anxiety and feeling of depression. Started in 2005, not noted then Date Reviewed: 09/23/2023 Reviewed by: Larry Ybarra, RN - Fully Assessed Reason for Visit: ER F/U [41] Nausea AND Vomiting [237] Prescriptions as of 12/02/2023 - clobetasol (TEMOVATE) 0.05 % ointment Apply to affected area two times a day. To posterior ankle - hydrocortisone (ANUSOL-HC) 25 mg suppository 1 Suppository by RECTAL route two times a day as needed (hemorrhoids/rectal pain). - losartan (COZAAR) 25 mg tablet Take 1 tablet by mouth once daily. - FLUoxetine (PROZAC) 10 mg capsule Take 1 capsule by mouth once daily. - loratadine (CLARITIN) 10 mg tablet Take 1 tablet by mouth once daily. - donepezil (ARICEPT) 10 mg tablet Take 1 tablet by mouth daily at bedtime. - famotidine (PEPCID) 10 mg tablet Take 1 tablet by mouth two times a day. - Azelaic Acid (FINACEA) 15 % gel Apply to affected area once daily. - amitriptyline (ELAVIL) 10 mg tablet Take 1 tablet by mouth daily at bedtime. - meloxicam (MOBIC) 15 mg tablet Take 1 tablet by mouth once daily. - fluorometholone (FML LIQUID FILM) 0.1 % ophthalmic suspension Use 1 Drop in both eyes once daily. - FOLIC ACID ORAL Take by mouth. Meds Comments as of 07/12/2019: 09/07/16: Not taking motrin or naprosyn. MS Does not take Naprosyn or Ibuprofen [facility] 9-10 May 27, 2019 Patient currently taking her prescription medications as prescriped. Esperanza Singleton RN 2019 Pt. stating has not been taking polyethylene glycol. Shonna Cervantes RN. Problem List As Of Date 09/24/2023 Noted Resolved Other disorders of synovium, tendon, and bursa(*01/08/2005 05/30/2015 Chronic midline low back pain without sciatica *02/08/2005 Ganglion of joint [M67.40] 07/16/2005 09/19/2016 Abdominal pain, right upper quadrant [R10.11] 02/01/2012 Unspecified constipation [K59.00] 02/01/2012 Diverticulosis of colon (without mention of hem* 05/30/2015 Hemorrhage of rectum and anus [K62.5] 09/19/2016 Cough [R05.9] 07/23/2008 02/01/2012 Rectocele [N81.6] 01/05/2011 Acute tracheobronchitis [J20.9] 03/07/2011 02/01/2012 Carpal tunnel syndrome [G56.00] 11/19/2011 09/19/2016 Osteopenia [M85.80] 10/28/2012 Adjustment disorder with anxiety [F43.22] 05/12/2013 Dyslipidemia [E78.5] 03/18/2015 Osteoarthritis of spine with radiculopathy, cer*05/30/2015 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 Psoriasis [L40.9] 05/23/2016 Dry cough [R05.8] 05/23/2016 Skin tear of lower leg without complication [S8*05/23/2016 09/19/2016 Abdominal pain [R10.9] 11/01/2016 05/20/2017 Postmenopausal atrophic vaginitis [N95.2] 11/01/2016 Cystitis [N30.90] 11/01/2016 05/20/2017 Primary osteoarthritis of left knee [M17.12] 05/10/2017 06/05/2017 Irritable bowel syndrome [K58.9] 05/20/2017 Urge incontinence [N39.41] 05/20/2017 Chronic pain of right knee [M25.561, G89.29] 05/20/2017 07/04/2017 OA (osteoarthritis) of knee [M17.9] 06/04/2017 06/05/2017 Status post total knee replacement using cement*07/04/2017 Status post total right knee replacement [Z96.6*09/07/2017 Adjustment insomnia [F51.02] 12/30/2017 Situational depression [F43.21] 12/30/2017 Hypertension, essential [I10] 12/30/2017 Hyperlipidemia, mixed [E78.2] 12/30/2017 Left lower quadrant pain [R10.32] 12/30/2017 Osteoarthritis of left knee [M17.12] 12/30/2017 Urinary frequency [R35.0] 02/03/2018 Chronic rhinitis [J31.0] Chronic obstructive pulmonary disease (HCC) [J4*10/08/2018 Chronic cough [R05.3] 10/08/2018 Sebaceous cyst [L72.3] 10/08/2018 Inflammatory arthritis [M19.90] 04/08/2019 Radiculopathy, cervic (more content not included)... Normal [facility] ALLIED HEALTHon 09-23-2023 ALLIED HEALTH HNO ID: [id number] Author: SAMANTHA MCGEE CT Service: Radiology Author Type: Technologist Type: Allied Health Filed: 09/23/2023 13:55 Note Text: Radiology Service Progress Note PATIENT NAME: Anaya Wilson DATE OF SERVICE: September 23, 2023 TIME: 1:54 PM PATIENT IDENTITY VERIFICATION COMPLETED USING TWO (2) IDENTIFIERS: Name and Date of confirmed by patient verbally and Name and Date of confirmed by identification band. FALL SCREENING: Has the patient had 2 falls in the last year or 1 fall with injury or currently using an Ambulatory Assistive Device (Walker, Cane, Wheelchair, Crutches, etc.)? No PATIENT GENDER DATA: Female. status: : No status: NO. PATIENT RELEVANT IMPLANT DATA REVIEWED: Yes PATIENT PRESENTS WITH AN IMPLANTABLE OR ATTACHED PANTOGRAPH I ENGRAVER: No RADIOLOGY DEPARTMENT: CT; Exam(s) Completed: Abdomen/Pelvis and Brain PERIPHERAL IV DATA: Inpatient: see LDA documentation SIGNED BY: ERIC Del Valle September 23, 2023 1:54 PM [facility] HEALTH HNO ID: [id number] Author: INES FERREIRA CT Service: Radiology Author Type: Technologist Type: Allied Health Filed: 09/23/2023 13:49 Note Text: Radiology Service Progress Note PATIENT NAME: Anaya Wilson DATE OF SERVICE: September 23, 2023 TIME: 1:48 PM PATIENT IDENTITY VERIFICATION COMPLETED USING TWO (2) IDENTIFIERS: Name and Date of confirmed by patient verbally. FALL SCREENING: Has the patient had 2 falls in the last year or 1 fall with injury or currently using an Ambulatory Assistive Device (Walker, Cane, Wheelchair, Crutches, etc.)? Emergency Room Patient: Screened in ED PATIENT GENDER DATA: Female. status: : No status: NO. PATIENT RELEVANT IMPLANT DATA REVIEWED: Not Applicable PATIENT PRESENTS WITH AN IMPLANTABLE OR ATTACHED PANTOGRAPH I ENGRAVER: No RADIOLOGY DEPARTMENT: General X-ray: Exam(s) Completed: Chest X-Ray PERIPHERAL IV DATA: Not applicable SIGNED BY: ERIC Caraballo September 23, 2023 1:48 PM [facility] CBC W Auto Differential pane l (Bld)on 09-23-2023 Basophils (Bld) [#/Vol] 10*3/uL Normal <0.11 [facility] Comment on above: Order Comment: Speci men Type: BLOOD SPECIMENOrdering Facility: [facility] Address: [address] [place] [address] Performed By: #### 5 7021-8 ####[facility] LABORATORYCLIA [id number] [address] OF [facility] Basophils/100 WBC (Bld) 0.4 % Normal [facility] Comment on above: Order Comment: Speci men Type: BLOOD SPECIMENOrdering Facility: [facility] Address: [address] [place] [address] Performed By: #### 5 7021-8 ####[facility] LABORATORYCLIA [id number] [address] Differential cell count method Nom (Bld) Auto Normal [facility] Comment on above: Order Comment: Speci men Type: BLOOD SPECIMENOrdering Facility: [facility] Address: [address] [place] [address] Performed By: #### 5 7021-8 ####[facility] LABORATORYCLIA [id number] [place] [address] [place] Eosinophils (Bld) [#/Vol] 0.03 10*3/uL Normal <0.46 [facility] Comment on above: Order Comment: Speci men Type: BLOOD SPECIMENOrdering Facility: [facility] Address: [address] [place] [address] Performed By: #### 5 7021-8 ####[facility] LABORATORYCLIA [id number] [address] [place] Eosinophils/100 WBC (Bld) 0.5 % Normal [facility] Comment on above: Order Comment: Speci men Type: BLOOD SPECIMENOrdering Facility: [facility] Address: [address] [place] [address] Performed By: #### 5 7021-8 ####[facility] LABORATORYCLIA [id number] [address] [place] Erythrocyte distribution width (RBC) [Ratio] 14.0 % Normal 11.5-15.0 [facility] Comment on above: Order Comment: Speci men Type: BLOOD SPECIMENOrdering Facility: [facility] Address: [address] [place] [address] Performed By: #### 5 7021-8 ####[facility] LABORATORYCLIA [id number] [address] [place] Hematocrit (Bld) [Volume fraction] 42.2 % Normal 36.0-46.0 [facility] Comment on above: Order Comment: Speci men Type: BLOOD SPECIMENOrdering Facility: [facility] Address: [address] [place] [address] Performed By: #### 5 7021-8 ####[facility] LABORATORYCLIA [id number] [place] [address] [place] Hemoglobin (Bld) [Mass/Vol] 13.9 g/dL Normal 11.5-15.5 [facility] Comment on above: Order Comment: Speci men Type: BLOOD SPECIMENOrdering Facility: [facility] Address: [address] [place] [address] Performed By: #### 5 7021-8 ####[facility] LABORATORYCLIA [id number] [place] [address] [place] Immature granulocytes (Bld) [#/Vol] 0.04 10*3/uL Normal <0.10 [facility] Comment on above: Order Comment: Speci men Type: BLOOD SPECIMENOrdering Facility: [facility] Address: [address] [place] [address] Performed By: #### 5 7021-8 ####[facility] LABORATORYCLIA [id number] [place] [address] [place] Immature granulocytes/100 WBC (Bld) 0.7 % Normal [facility] Comment on above: Order Comment: Speci men Type: BLOOD SPECIMENOrdering Facility: [facility] Address: [address] [place] [address] Performed By: #### 5 7021-8 ####[facility] LABORATORYCLIA [id number] [place] [address] [place] Lymphocytes (Bld) [#/Vol] 1.21 10*3/uL Normal 1.00-4.00 [facility] Comment on above: Order Comment: Speci men Type: BLOOD SPECIMENOrdering Facility: [facility] Address: [address] [place] [address] Performed By: #### 5 7021-8 ####[facility] LABORATORYCLIA [id number] [place] [address] [place] Lymphocytes/100 WBC (Bld) 22.0 % Normal [facility] Comment on above: Order Comment: Speci men Type: BLOOD SPECIMENOrdering Facility: [facility] Address: [address] [place] [address] Performed By: #### 5 7021-8 ####[facility] LABORATORYCLIA [id number] [address] MCH (RBC) [Entitic mass] 30.3 pg Normal 26.0-34.0 [facility] Comment on above: Order Comment: Speci men Type: BLOOD SPECIMENOrdering Facility: [facility] Address: [address] [place] [address] Performed By: #### 5 7021-8 ####[facility] LABORATORYCLIA [id number] [address] STATES [facility] MCHC (RBC) [Mass/Vol] 32.9 g/dL Normal 30.5-36.0 [facility] Comment on above: Order Comment: Speci men Type: BLOOD SPECIMENOrdering Facility: [facility] Address: [address] [place] [address] Performed By: #### 5 7021-8 ####[facility] LABORATORYCLIA [id number] [address] MCV (RBC) [Entitic vol] 92.1 fL Normal 80.0-100.0 [facility] Comment on above: Order Comment: Speci men Type: BLOOD SPECIMENOrdering Facility: [facility] Address: [address] [place] [address] Performed By: #### 5 7021-8 ####[facility] LABORATORYCLIA [id number] [address] Monocytes (Bld) [#/Vol] 0.49 10*3/uL Normal <0.87 [facility] Comment on above: Order Comment: Speci men Type: BLOOD SPECIMENOrdering Facility: [facility] Address: [address] [place] [address] Performed By: #### 5 7021-8 ####[facility] LABORATORYCLIA [id number] [address] Monocytes/100 WBC (Bld) 8.9 % Normal [facility] Comment on above: Order Comment: Speci men Type: BLOOD SPECIMENOrdering Facility: [facility] Address: [address] [place] [address] Performed By: #### 5 7021-8 ####[facility] LABORATORYCLIA [id number] [place] [address] [place] Neutrophils (Bld) [#/Vol] 3.72 10*3/uL Normal 1.45-7.50 [facility] Comment on above: Order Comment: Speci men Type: BLOOD SPECIMENOrdering Facility: [facility] Address: [address] [place] [address] Performed By: #### 5 7021-8 ####[facility] LABORATORYCLIA [id number] [place] [address] [place] Neutrophils/100 WBC (Bld) 67.5 % Normal [facility] Comment on above: Order Comment: Speci men Type: BLOOD SPECIMENOrdering Facility: [facility] Address: [address] [place] [address] Performed By: #### 5 7021-8 ####[facility] LABORATORYCLIA [id number] [place] [address] [place] Nucleated RBC (Bld) [#/Vol] 10*3/uL Normal <0.01 [facility] Comment on above: Order Comment: Speci men Type: BLOOD SPECIMENOrdering Facility: [facility] Address: [address] [place] [address] Performed By: #### 5 7021-8 ####[facility] LABORATORYCLIA [id number] [address] [place] Nucleated RBC/100 WBC (Bld) [Ratio] 0.0 /100 WBC Normal [facility] Comment on above: Order Comment: Speci men Type: BLOOD SPECIMENOrdering Facility: [facility] Address: [address] [place] [address] Performed By: #### 5 7021-8 ####[facility] LABORATORYCLIA [id number] [place] [address] [place] Platelet mean volume (Bld) [Entitic vol] 9.9 fL Normal 9.0-12.7 [facility] Comment on above: Order Comment: Speci men Type: BLOOD SPECIMENOrdering Facility: [facility] Address: [address] [place] [address] Performed By: #### 5 7021-8 ####[facility] LABORATORYCLIA [id number] [address] [place] Platelets (Bld) [#/Vol] 251 10*3/uL Normal 150-400 [facility] Comment on above: Order Comment: Speci men Type: BLOOD SPECIMENOrdering Facility: [facility] Address: [address] [place] [address] Performed By: #### 5 7021-8 ####[facility] LABORATORYCLIA [id number] [place] [address] [facility] [place] RBC (Bld) [#/Vol] 4.58 10*6/uL Normal 3.90-5.20 [facility] Comment on above: Order Comment: Speci men Type: BLOOD SPECIMENOrdering Facility: [facility] Address: [address] [place] [address] Performed By: #### 5 7021-8 ####[facility] LABORATORYCLIA [id number] [address] [place] WBC (Bld) [#/Vol] 5.51 10*3/uL Normal 3.70-11.00 [facility] Comment on above: Order Comment: Speci men Type: BLOOD SPECIMENOrdering Facility: [facility] Address: [address] [place] [address] Performed By: #### 5 7021-8 ####[facility] LABORATORYCLIA [id number] [place] [id number] [facility] CT ABD/PEL W IVCONon 024 CT ABD/PEL W IVCON * * *Final Report* * * DATE OF EXAM: Sep 23 2023 1:57PM [facility] [place]30 - CT ABD/PEL W IVCON / PROCEDURE REASON: Abdominal abscess/infection suspected * * * * Physician Interpretation * * * * EXAMINATION: CT ABDOMEN AND PELVIS WITH IV CONTRAST CLINICAL HISTORY: Rib cage TECHNIQUE: CT of the abdomen and pelvis was performed using standard technique, scanning from just above the dome of the diaphragm to the symphysis pubis. MQ: CTAP_3 Contrast: IV: 100 ml of Omnipaque 350 : ml of CT Radiation dose: Integrated Dose-length product (DLP) for this visit = 232 mGy*cm. CT Dose Reduction Employed: Automated exposure control(AEC) and iterative recon COMPARISON: CT abdomen pelvis 12/03/2021 MRI pancreas 05/22/2023 Result: CT ABDOMEN: Lower thorax: Unremarkable. Liver: No mass. Homogeneous texture. Biliary: No ductal dilatation is seen. . Gallbladder is unremarkable. GI tract: No bowel dilatation is seen. No evidence of obstruction. Spleen: Spleen is unremarkable. Pancreas: There is again noted be a cystic mass in the posterior aspect of the mid body of the pancreas. It measures 1.4 x 1.7 cm on axial image 04/26. Previously measured 1.8 cm on MRI from 05/22/2019 Adrenals: Adrenal glands are unremarkable. Kidneys: RIGHT kidney: No masses No calcifications are seen. No hydronephrosis is seen. LEFT kidney: No masses No calcifications are seen. No hydronephrosis is seen. Lymph nodes: No evidence of adenopathy. Mesentery/Peritoneum: No ascites or mass. Vasculature: No evidence of dilatation of the abdominal aorta. Bony structures: No fractures or dislocations are seen. Marked disc space narrowing L4-5 L5-S1 levels. Soft tissues: No acute findings. CT PELVIS FINDINGS: Lymph Nodes: No enlarged lymph nodes. Urinary bladder: Unremarkable Gold And Silver Assayer (topogram) images: No additional findings IMPRESSION: 1. 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 It appears to be similar in size to the previous MRI 2. No acute changes are seen Self Propelled Hot Mix Roller Operator: M[facility]CKINRIDGE HOSPITALJeovanny Transcribe Date/Time: Sep 23 2023 2:25P Dictated by : RADHA ELIAS DO This examination was interpreted and the report reviewed and electronically signed by: RADHA ELIAS DO on Sep 23 2023 2:34PM EST [id number] [facility] CT BRAIN WO IVCONon 09-23-19 CT BRAIN WO IVCON * * *Final Report* * * DATE OF EXAM: Sep 23 2023 1:57PM [facility] [place] - CT BRAIN WO IVCON / PROCEDURE REASON: Encephalitis * * * * Physician Interpretation * * * * EXAMINATION: CT BRAIN WO IVCON HISTORY: Clinical information: Encephalitis ultiple Concerns: Has hx dementia, took double dose of donepezil Saturday evening totaling 20mg. Beginning Saturday morning she began exhibiting FLS including nausea, abd pain, myalgias, chills and headaches. states she appears very drowsy TECHNIQUE: Serial axial images without IV contrast were obtained from the vertex to the foramen magnum. MQ: CTBWO_3 CT Radiation dose: Integrated Dose-Length Product (DLP) for this visit = 655 mGy*cm CT Dose Reduction Employed: Automated exposure control(AEC) and iterative recon COMPARISON: None. RESULT: Post-operative change: None. Acute change: No evidence of an acute infarct or other acute parenchymal process. Hemorrhage: No evidence of acute intracranial hemorrhage. ECASS hemorrhagic transformation score: Not Applicable Mass Lesion / Mass Effect: There is no evidence of an intracranial mass or extraaxial fluid collection. No significant mass effect. Chronic change: None apparent. Parenchyma: There is no significant volume loss. The brain parenchyma is otherwise within normal limits for age. Ventricles: The ventricles are within normal limits of size and configuration for age. Paranasal sinuses and skull base: The visualized paranasal sinuses are grossly clear. The skull base and imaged soft tissues are unremarkable. Localizer images: No additional findings. IMPRESSION: No intracranial hemorrhage or other acute intracranial abnormalities Self Propelled Hot Mix Roller Operator: PSCB Transcribe Date/Time: Sep 23 2023 2:02P Dictated by : RADHA ELIAS DO This examination was interpreted and the report reviewed and electronically signed by: RADHA ELIAS DO on Sep 23 2023 2:08PM EST [id number] Normal [facility] Comprehensive metabolic 2000 panelon 09-23-2023 Albumin [Mass/Vol] 4.0 g/dL Normal 3.9-4.9 [facility] Comment on above: Order Comment: Wellington zuniga Type: BLOOD SPECIMENOrdering Facility: [facility] Address: [address] [place] [address] Performed By: #### H STNT, 3040-3, 13281-1, 21735-3 ####[facility] LABORATORYCLIA [id number] [place] [address] [place] ALP [Catalytic activity/Vol] 119 U/L Normal 34-123 [facility] Comment on above: Order Comment: Wellington zuniga Type: BLOOD SPECIMENOrdering Facility: [facility] Address: [address] [place] [address] Performed By: #### H STNT, 3040-3, 47172-6, 18094-3 ####[facility] LABORATORYCLIA [id number] [address] STATES [facility] ALT [Catalytic activity/Vol] 17 U/L Normal 7-38 [facility] Comment on above: Order Comment: Speci men Type: BLOOD SPECIMENOrdering Facility: [facility] Address: [address] [place] [address] Performed By: #### H STNT, 3040-3, 74852-1, 24361-1 ####[facility] LABORATORYCLIA [id number] [address] [place] Anion gap [Moles/Vol] 11 mmol/L Normal 8-15 [facility] Comment on above: Order Comment: Speci men Type: BLOOD SPECIMENOrdering Facility: [facility] Address: [address] [place] [address] Performed By: #### H STNT, 3040-3, 99284-0, 03923-5 ####[facility] LABORATORYCLIA [id number] [address] OF [facility] AST [Catalytic activity/Vol] 24 U/L Normal 13-35 [facility] Comment on above: Order Comment: Speci men Type: BLOOD SPECIMENOrdering Facility: [facility] Address: [address] [place] [address] Performed By: #### H STNT, 3040-3, 67646-9, 37024-1 ####[facility] LABORATORYCLIA [id number] [place] [id number] [place] Bilirubin [Mass/Vol] 0.5 mg/dL Normal 0.2-1.3 [facility] Comment on above: Order Comment: Speci men Type: BLOOD SPECIMENOrdering Facility: [facility] Address: [address] [place] [address] Performed By: #### H STNT, 3040-3, 34753-3, 22799-2 ####[facility] LABORATORYCLIA [id number] [place] [address] [place] Calcium [Mass/Vol] 9.2 mg/dL Normal 8.5-10.2 [facility] Comment on above: Order Comment: Speci men Type: BLOOD SPECIMENOrdering Facility: [facility] Address: [address] [place] [address] Performed By: #### H STNT, 3040-3, 51271-2, 80546-4 ####[facility] LABORATORYCLIA [id number] [place] [address] [place] Chloride [Moles/Vol] 96 mmol/L Low 98-107 [facility] Comment on above: Order Comment: Speci men Type: BLOOD SPECIMENOrdering Facility: [facility] Address: [address] [place] [address] Performed By: #### H STNT, 3040-3, 41253-1, 74882-7 ####[facility] LABORATORYCLIA [id number] [place] [address] [place] CO2 [Moles/Vol] 26 mmol/L Normal 22-30 [facility] Comment on above: Order Comment: Speci men Type: BLOOD SPECIMENOrdering Facility: [facility] Address: [address] [place] [address] Performed By: #### H STNT, 3040-3, , 27445-7 ####[facility] LABORATORYCLIA [id number] [place] [address] [place] Creatinine [Mass/Vol] 0.60 mg/dL Normal 0.58-0.96 [facility] Comment on above: Order Comment: Speci men Type: BLOOD SPECIMENOrdering Facility: [facility] Address: [address] [place] [address] Performed By: #### H STNT, 3040-3, , 44029-5 ####[facility] LABORATORYCLIA [id number] [address] Creatinine and Glomerular filtration rate.predicted panel (S/P/Bld) 89 mL/min/1.73m??? Normal >=60 [facility] Comment on above: Order Comment: Speci men Type: BLOOD SPECIMENOrdering Facility: [facility] Address: [address] [place] [id number] Result Comment: Julianna mated Glomerular Filtration Rate (eGFR) is calculated using the 2020 CKD-EPI creatinine equation. This equation utilizes serum creatinine, sex, and age as parameters. The creatinine assay has traceable calibration to isotope dilution-mass spectrometry. Refer to KDIGO guidelines for clinical interpretation. In patients with unstable renal function, e.g. those with acute kidney injury, the eGFR may not accurately reflect actual GFR. Performed By: #### H STNT, 0-3, 35468-2, 25196-0 ####[facility] LABORATORYCLIA [id number] [place] [address] [place] Glucose [Mass/Vol] 101 mg/dL High 74-99 [facility] Comment on above: Order Comment: Wellington zuniga Type: BLOOD SPECIMENOrdering Facility: [facility] Address: [address] [place] [address] Result Comment: The [place] Diabetes Association (ADA) provides guidance for cutoff values for fasting glucose and random glucose. The ADA defines fasting as no caloric intake for at least 8 hours. Fasting plasma glucose results between 100 to 125 mg/dL indicate increased risk for diabetes (prediabetes). Fasting plasma glucose results greater than or equal to 126 mg/dL meet the criteria for diagnosis of diabetes. In the absence of unequivocal hyperglycemia, results should be confirmed by repeat testing. In a patient with classic symptoms of hyperglycemia or hyperglycemic crisis, random plasma glucose results greater than or equal to 200 mg/dL meet the criteria for diagnosis of diabetes. Reference: Standards of Medical Care in Diabetes 2016, [place] Diabetes Association. Diabetes Care. 2016.39(Suppl 1). Performed By: #### H STNT, 3040-3, 63199-5, 94032-5 ####[facility] LABORATORYCLIA [id number] [place] [address] [place] Potassium [Moles/Vol] 3.7 mmol/L Normal 3.7-5.1 [facility] Comment on above: Order Comment: [facility] Type: BLOOD SPECIMENOrdering Facility: [facility] Address: [address] [place] [id number] Performed By: #### H STNT, 0-3, 16033-2, 89361-6 ####[facility] LABORATORYCLIA [id number] [address] [place] Protein [Mass/Vol] 6.7 g/dL Normal 6.3-8.0 [facility] Comment on above: Order Comment: Speci men Type: BLOOD SPECIMENOrdering Facility: [facility] Address: [address] [place] [address] Performed By: #### H STNT, 3040-3, 04413-1, 06052-6 ####[facility] LABORATORYCLIA [id number] [place] [address] [place] Sodium [Moles/Vol] 133 mmol/L Low 136-144 [facility] Comment on above: Order Comment: Speci men Type: BLOOD SPECIMENOrdering Facility: [facility] Address: [address] [place] [address] Performed By: #### H STNT, 3040-3, 46270-6, 44664-8 ####[facility] LABORATORYCLIA [id number] [address] [place] Urea nitrogen [Mass/Vol] 12 mg/dL Normal 7-21 [facility] Comment on above: Order Comment: Speci men Type: BLOOD SPECIMENOrdering Facility: [facility] Address: [address] [place] [address] Performed By: #### H STNT, 3040-3, 24980-1, 13303-8 ####[facility] LABORATORYCLIA [id number] [place] [id number] [place] ED NOTEon 09-23-2023 ED NOTE HNO ID: [id number] Author: CARLOS PAUL RN Service: ? Author Type: Registered Nurse Type: ED Notes Filed: 09/23/2023 15:32 Note Text: Discharge instructions d/w pt and at bedside. Stated understanding with no further questions for this nurse. Encouraged f/u with PCP and referring doctors given. Stated understanding. Prescription(S) were given X2. Normal [facility] ED PROV NOTEon 09-23-2023 ED PROV NOTE HNO ID: [id number] Author: MAXIMO PEÑA DO Service: Emergency Medicine Author Type: Physician Type: ED Provider Notes Filed: 09/23/2023 15:11 Note Text: ED CONTINUATION OF CARE NOTE Code Status: Prior Assumed care from: Dr. Ware Presentation / Findings / Interventions / Plan / Items to Follow Up: Patient was signed out to me pending urinalysis. Patient came in with multiple complaints of mainly vomiting. She also had some mild discomfort in her chest. Workup has been largely unremarkable. Is thought she may have some reflux. Medications have been prescribed. Currently pending urinalysis. It is felt the patient can be discharged home with or without antibiotics depending on urinalysis results. Urinalysis does not show evidence for UTI. Patient will be discharged home. Clinical Impressions as of 09/23/23 1510 Abdominal pain, unspecified abdominal location Nausea SIGNATURE: Maximo Peña DO PATIENT NAME: Anaya Wilson DATE: September 23, 2023 TIME: 3:10 PM PAGER/CONTACT #: MAXIMO PEÑA I 09/23/23 1511 [facility] ED PROV NOTE HNO ID: [id number] Author: NEAL WARE MD Service: Emergency Medicine Author Type: Physician Type: ED Provider Notes Filed: 09/23/2023 15:03 Note Text: ED Provider Note Patient Name: Anaya Wilson : 1940 SERVICE DATE: 09/23/23 History Patient presents with: Multiple Concerns: Has hx dementia, took double dose of donepezil Saturday evening totaling 20mg. Beginning Saturday morning she began exhibiting FLS including nausea, abd pain, myalgias, chills and headaches. states she appears very drowsy and lethargic Ms. Wilson is an 83 yo F with history of COPD and dementia presenting today after she developed vomiting and shaking chills early Saturday, a little over 24 hours ago. She has not had diarrhea or constipation. She has had some ongoing abdominal discomfort intermittently. No dysuria or urinary frequency or hematuria. She has had a mild headache. No chest pain or trouble breathing. No cough. While her thinks she is on blood thinners, I do not see any on her medication list. No unilateral weakness or numbness or trouble speaking or swallowing. She thinks she got a double dose of her dementia medication sometime early to mid last week. 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 Dementia (HCC) Diverticulosis of colon (without mention of hemorrhage) Dry cough 05/23/2016 Ganglion of joint 07/16/2005 Generalized osteoarthrosis, unspecified site Hemorrhage of gastrointestinal tract, unspecified Hemorrhage of rectum and anus Hypertension Infection of left eye Irritable bowel syndrome Osteomalacia, unspecified Other and unspecified hyperlipidemia Pneumonia, organism unspecified(486) PONV (postoperative nausea and vomiting) Psoriatic arthritis (HCC) Rectocele 01/05/2011 Skin tear of lower leg without complication 05/23/2016 Sprain of unspecified site of sacroiliac region Unspecified constipation Urge incontinence mild PAST SURGICAL HISTORY Procedure Laterality Date ARTHRP KNE CONDYLEANDPLATU MEDIALANDLAT COMPARTMENTS Right 06/03/2017 Knee replacement, total COLONOSCOPY 05/10/2022 rectal mass COLONOSCOPY FLX DX W/COLLJ SPEC WHEN PFRMD 04/20/2002 Colonoscopy COLONOSCOPY FLX DX W/COLLJ SPEC WHEN PFRMD 07/25/2011 Colonoscopy EYE SURGERY HX JOINT REPLACEMENT HX NEUROPLASTY AND/TRANSPOS MEDIAN NRV CARPAL TUNNE 1979 Carpal tunnel decomp b/l hands NEUROPLASTY AND/TRANSPOS MEDIAN NRV CARPAL TUNNE 12/18/2011 RIGHT PAST SURGICAL HISTORY OF Left laser eye surgery for glaucoma SIGMOIDOSCOPY FLX DX W/COLLJ SPEC BR/WA IF PFRMD 06/23/2007 TOTAL ABDOMINAL HYSTERECT W/WO RMVL TUBE OVARY 1988 RUBI/BSO for fibroids and bleeding TOTAL KNEE REPLACEMENT Left 03/28/2020 VAGINAL HYSTERECTOMY FAMILY HISTORY Problem Relation Age of Onset Heart Mother CHF Cancer Father prostate Psychiatry Father Cancer Brother No Known Problems Daughter No Known Problems Daughter No Known Problems Daughter Breast Cancer Maternal Aunt Social History Tobacco Use Smoking status: Never Smokeless tobacco: Never Vaping Use Vaping Use: Never used Substance and Sexual Activity Alcohol use: No Drug use: No Sexual activity: Yes Partners: Male ALLERGIES Allergen Reactions Caffeine Codeine Darvocet A500 [Prop* Vomiting Demerol [Meperidine* Vomiting Entex [Phenylephrin* Ephedrine Other: See Comments Heart palpitations Griseofulvin Milk Containing Pro* Intolerance Nasal stuffiness Tramadol Other: See Comments Nausea, vomiting, dry heaves after carpal tunnel surgery Vicodin [Hydrocodon* Itching Zoloft [Sertraline * Mental Status Change Increased anxiety and feeling of depression. Started in 2005, not noted then Review of Systems Constitutional: Negative for chills and fever. HENT: Negative for ear pain, rhinorrhea and sore throat. Respiratory: Negative for cough and shortness of breath. Cardiovascular: Negative for chest pain and leg swelling. Gastrointestinal: Positive for abdominal pain, nausea and vomiting. Negative for diarrhea. Genitourinary: Negative for dysuria, flank pain, frequency and hematuria. Musculoskeletal: Negative for back pain. Skin: Negative for rash. Neurological: Positive for headaches. Negative for speech difficulty, weakness, light-headedness and numbness. Psychiatric/Behavioral: Negative for hallucinations and suicidal ideas. Physical Exam Vitals [09/23/23 1132] BP Pulse Temp Temp src Resp SpO2 Weight Height 175/73 (!) 53 36.7 ?C (98 ?F) Oral 22 99 % 54.4 kg (120 lb) -- Physical Exam Vitals and nursing note reviewed. Constitutional: General: She is not in acute distress. Appearance: She is well-developed. H (more content not included)... Normal [facility] FLUABV+SARS-CoV-2+RSV Pnl Re sp PRABHA+probeon 09-23-2023 FLUABV+SARS-CoV-2+RSV Pnl Resp PRABHA+probe COVID 19 RESULT: Not detected The method used is RT-PCR or an equivalent NAAT method. Reference Range(the expected result in uninfected individuals): Not detected INFLUENZA A PCR: Not detected INFLUENZA B PCR: Not detected RSV PCR: Not detected Normal [facility] Comment on above: Performed By: #### 9 5941-1 ####[facility] [id number] [place] [address] [place] HIGH SENSITIVITY TROPONIN To n 09-23-2023 Troponin T.cardiac High sensitivity method [Mass/Vol] 11 ng/L Normal <12 [facility] Comment on above: Order Comment: Speci men Type: BLOOD SPECIMENOrdering Facility: [facility] Address: [address] [place] [address] Performed By: #### H STNT, 3040-3, 89963-2, 34215-3 ####[facility] [id number] [place] [address] [place] Lipase SerPl-cCncon 09-23-19 24 Lipase [Catalytic activity/Vol] 85 U/L High 16-61 [facility] Comment on above: Order Comment: Speci men Type: BLOOD SPECIMENOrdering Facility: [facility] Address: [address] [place] [address] Performed By: #### H STNT, 3040-3, 70424-5, ####[facility] [id number] [address] [place] Magnesium SerPl-mCncon 09-22 Magnesium [Mass/Vol] 2.0 mg/dL Normal 1.7-2.3 [facility] Comment on above: Order Comment: Speci men Type: BLOOD SPECIMENOrdering Facility: [facility] Address: [address] [place] [address] Performed By: #### H STNT, 3040-3, 59018-4, ####[facility] [id number] [address] [place] Urinalysis complete panel (U )on 09-23-2023 Bilirubin Ql (U) Negative Normal Negative [facility] Comment on above: Order Comment: Speci men Type: URINE SPECIMENOrdering Facility: [facility] Address: [address] [place] [address] Performed By: #### 2 4356-8 ####[facility] [id number] [address] [place] Clarity (Unsp spec) Clear Normal Clear [facility] Comment on above: Order Comment: Speci men Type: URINE SPECIMENOrdering Facility: [facility] Address: [address] [place] [address] Performed By: #### 2 4356-8 ####[facility] [id number] [place] [address] [place] Color (U) Yellow Normal Yellow [facility] Comment on above: Order Comment: Speci men Type: URINE SPECIMENOrdering Facility: [facility] Address: [address] [place] [address] Performed By: #### 2 4356-8 ####[facility] [id number] [place] [address] [place] Glucose Test strip (U) [Mass/Vol] Negative Normal Negative [facility] Comment on above: Order Comment: Speci men Type: URINE SPECIMENOrdering Facility: [facility] Address: [address] [place] [address] Performed By: #### 2 4356-8 ####[facility] [id number] [place] [address] [place] Hemoglobin Ql (U) Negative Normal Negative [facility] Comment on above: Order Comment: Speci men Type: URINE SPECIMENOrdering Facility: [facility] Address: [address] [place] [address] Performed By: #### 2 4356-8 ####[facility]ORYCL[facility] [id number] [place] [address] [place] Ketones Ql (U) Negative Normal Negative [facility] Comment on above: Order Comment: Speci men Type: URINE SPECIMENOrdering Facility: [facility] Address: [address] [place] [address] Performed By: #### 2 4356-8 ####[facility]ORYCL[facility] [id number] [place] [address] [place] Leukocyte esterase Test strip Ql (U) Negative Normal Negative [facility] Comment on above: Order Comment: Speci men Type: URINE SPECIMENOrdering Facility: [facility] Address: [address] [place] [address] Performed By: #### 2 4356-8 ####[facility]ORYCLIA [id number] [place] [address] [place] Nitrite Ql (U) Negative Normal Negative [facility] Comment on above: Order Comment: Speci men Type: URINE SPECIMENOrdering Facility: [facility] Address: [address] [place] [address] Performed By: #### 2 4356-8 ####[facility]CL[facility] [id number] [address] pH (U) 7.0 [pH] Normal 5.0-8.0 [facility] Comment on above: Order Comment: Speci men Type: URINE SPECIMENOrdering Facility: [facility] Address: [address] [place] [address] Performed By: #### 2 4356-8 ####[facility]ORYCL[facility] [id number] [address] [place] Protein (U) [Mass/Vol] Negative Normal Negative [facility] Comment on above: Order Comment: Speci men Type: URINE SPECIMENOrdering Facility: [facility] Address: [address] [place] [address] Performed By: #### 2 4356-8 ####[facility]ORYCLIA [id number] [place] [address] [place] RBC LM.HPF (Urine sed) [#/Area] 0-3 /HPF Normal 0-3 /HPF [facility] Comment on above: Order Comment: Speci men Type: URINE SPECIMENOrdering Facility: [facility] Address: [address] [place] [address] Performed By: #### 2 4356-8 ####[facility]ORYCLIA [id number] [address] [place] Specific gravity (U) [Rel density] <=1.005 Low 1.005-1.030 [facility] Comment on above: Order Comment: Speci men Type: URINE SPECIMENOrdering Facility: [facility] Address: [address] [place] [address] Performed By: #### 2 4356-8 ####[facility]CLIA [id number] [address] Urobilinogen Ql (U) 0.2 EU/dL Normal 0.2-1.0 EU/dL [facility] Comment on above: Order Comment: Speci men Type: URINE SPECIMENOrdering Facility: [facility] Address: [address] [id number] Performed By: #### 2 4356-8 ####[facility]CLIA [id number] [address] [place] WBC LM.HPF (Urine sed) [#/Area] 0-5 /HPF Normal 0-5 /HPF [facility] Comment on above: Order Comment: Speci men Type: URINE SPECIMENOrdering Facility: [facility] Address: [address] [place] [id number] Performed By: #### 2 4356-8 ####[facility]ORYCLIA [id number] [address] [place] XR CHEST 1V FRONTAL PORTon 0 09-23-2023 XR CHEST 1V FRONTAL PORT * * *Final Report* * * DATE OF EXAM: Sep 23 2023 1:50PM MDX 5376 - XR CHEST 1V FRONTAL PORT / PROCEDURE REASON: Mental status change * * * * Physician Interpretation * * * * EXAMINATION: CHEST RADIOGRAPH (PORTABLE SINGLE VIEW AP) Exam Date/Time: 09/23/2023 1:50 PM CLINICAL HISTORY: Mental status change MQ: XCPR_5 Comparison: 06/27/2023 RESULT: Lines, tubes, and devices: None. Lungs and pleura: Question small amount of focal density adjacent to the apex of the heart in the LEFT lower lung field. This could represent a small focus of atelectasis/infiltrate Cardiomediastinal silhouette: Stable cardiomediastinal silhouette. Other: Bony structures unremarkable. IMPRESSION: Findings as discussed under Results portion of report. Self Propelled Hot Mix Roller Operator: JAIME Transcribe Date/Time: Sep 23 2023 2:08P Dictated by : RADHA ELIAS DO This examination was interpreted and the report reviewed and electronically signed by: RADHA ELIAS DO on Sep 23 2023 2:10PM EST [id number] Normal [facility] CNOVon 09-18-2023 CNOV Office Visit (FAMPWS ) -- ANAYA WILSON ([id number]) 1940 F [employer]* Date Time Provider Department 09/18/23 6:20 PM EDENILSON NICHOLSON FAMPWS During your visit today, we recorded the following information about you: Temperature Pulse Respiration Blood pressure 98 degrees 60/minute 16/minute 120/60 Weight 54 kg Edenilson Nicholson, DO 09/18/2023 7:05 PM Addendum STOP the methotrexate and the folic acid Use the Aspercream or the Voltaren cream on your inner right knee area on the bursitis area where there is pain Increase the donezapil to 10 mg a day for memory Edenilson Nicholson, DO 09/18/2023 8:43 PM Signed CC: Anaya Wilson is a 83 year old female who presents to the office for follow up HPI: Seen in office on 07/16/23, at that visit Dx on 07/04/2023 with UTI, tx with Macrobid, states still +sx-urinary urgency and frequency. RUQ and epigastric pain for about a week, intermittently but now becoming more consistent. +nausea, no vomiting/diarrhea. Appetite is normal. Is random, no rhyme or reason. Is not worsened or better with eating. Has had some extra stress lately. 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 Is questioning nerves as a cause. Is not interested in therapy/psychology at this time. Currently RUQ and epigastric pain for about 2 months, intermittently but now becoming more consistent. +nausea, no vomiting/diarrhea. Appetite is normal. Is random, no rhyme or reason. Is not worsened or better with eating. No blood in stool. Is having normal bowel movements. No new medications or changes. Memory, dementia, taking aricept 5 mg a day which was started 2-3 months ago. Tolerating medication well with SE. 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 Dementia (HCC) Diverticulosis of colon (without mention of hemorrhage) Dry cough 05/23/2016 Ganglion of joint 07/16/2005 Generalized osteoarthrosis, unspecified site Hemorrhage of gastrointestinal tract, unspecified Hemorrhage of rectum and anus Hypertension Infection of left eye Irritable bowel syndrome Osteomalacia, unspecified Other and unspecified hyperlipidemia Pneumonia, organism unspecified(486) PONV (postoperative nausea and vomiting) Psoriatic arthritis (HCC) Rectocele 01/05/2011 Skin tear of lower leg without complication 05/23/2016 Sprain of unspecified site of sacroiliac region Unspecified constipation Urge incontinence mild PAST SURGICAL HISTORY Procedure Laterality Date ARTHRP KNE CONDYLEANDPLATU MEDIALANDLAT COMPARTMENTS Right 06/03/2017 Knee replacement, total COLONOSCOPY 05/10/2022 rectal mass COLONOSCOPY FLX DX W/COLLJ SPEC WHEN PFRMD 04/20/2002 Colonoscopy COLONOSCOPY FLX DX W/COLLJ SPEC WHEN PFRMD 07/25/2011 Colonoscopy EYE SURGERY HX JOINT REPLACEMENT HX NEUROPLASTY AND/TRANSPOS MEDIAN NRV CARPAL TUNNE 1979 Carpal tunnel decomp b/l hands NEUROPLASTY AND/TRANSPOS MEDIAN NRV CARPAL TUNNE 12/18/2011 RIGHT PAST SURGICAL HISTORY OF Left laser eye surgery for glaucoma SIGMOIDOSCOPY FLX DX W/COLLJ SPEC BR/WA IF PFRMD 06/23/2007 TOTAL ABDOMINAL HYSTERECT W/WO RMVL TUBE OVARY 1988 RUBI/BSO for fibroids and bleeding TOTAL KNEE REPLACEMENT Left 03/28/2020 VAGINAL HYSTERECTOMY Current Outpatient Medications Medication Sig FLUoxetine (PROZAC) 10 mg capsule Take 1 capsule by mouth once daily. donepezil (ARICEPT) 10 mg tablet Take 1 tablet by mouth daily at bedtime. famotidine (PEPCID) 10 mg tablet Take 1 tablet by mouth two times a day. benzonatate (TESSALON PERLE) 100 mg capsule Take 2 capsules by mouth three times a day as needed. hydrocortisone (ANUSOL-HC) 25 mg suppository 1 Suppository by RECTAL route two times a day as needed (hemorrhoids/rectal pain). Azelaic Acid (FINACEA) 15 % gel Apply to affected area once daily. losartan (COZAAR) 25 mg tablet TAKE 1 TABLET BY MOUTH EVERY DAY amitriptyline (ELAVIL) 10 mg tablet Take 1 tablet by mouth daily at bedtime. loratadine (CLARITIN) 10 mg tablet Take 1 tablet by mouth once daily. meloxicam (MOBIC) 15 mg tablet Take 1 tablet by mouth once daily. methotrexate 2.5 mg tablet Take 6 tablets once weekly,on fluorometholone (FML LIQUID FILM) 0.1 % ophthalmic suspension Use 1 Drop in both eyes once daily. FOLIC ACID ORAL Take by mouth. No current facility-administered medications for this visit. ALLERGIES Allergen Reactions Caffeine Codeine Darvocet A500 [Prop* Vomiting Demerol [Meperidine* Vomiting Entex [Phenylephrin* Ephedrine Other: See Comments Heart palpitations Griseofulvin Milk Containing Pro* In (more content not included)... Normal [facility] CBC W/Diff, Automatedon 08-02 Absolute Lymph 2.48 X10 3/uL Normal 0.83-4.51 [facility] Comment on above: Performed By: #### L 500.4050, L100.0100 #### [facility] [address] [place], [address] Absolute Neut 2.3 X10 3/uL Normal 2.0-7.7 [facility] Comment on above: Performed By: #### L 500.4050, L100.0100 #### [facility] [address] [place], [address] Basophils/100 WBC (Bld) 0.5 % Normal 0-1 [facility] Comment on above: Performed By: #### L 500.4050, L100.0100 #### [facility] [address] [place], [address] Eosinophils/100 WBC (Bld) 3.4 % Normal 0-5 [facility] Comment on above: Performed By: #### L 500.4050, L100.0100 #### [facility] [address] [place], [address] Erythrocyte distribution width (RBC) [Ratio] 13.9 % Normal 11.6-14.6 [facility] Comment on above: Performed By: #### L 500.4050, L100.0100 #### [facility] [address] [place], [address] Hematocrit (Bld) [Volume fraction] 40.2 % Normal 37-47 [facility] Comment on above: Performed By: #### L 500.4050, L100.0100 #### [facility] [address] [place], [address] Hemoglobin (Bld) [Mass/Vol] 12.6 g/dL Normal 12.0-15.0 [facility] Comment on above: Performed By: #### L 500.4050, L100.0100 #### [facility] [address] [place], [address] IG% 0.300 Normal 0.0-0.9 [facility] Comment on above: Result Comment: IG% - Immature Granulocytes (promyelocytes, myelocytes and metamyelocytes) > 1% indicates that a LEFT SHIFT is Present. Performed By: #### L 500.4050, L100.0100 #### [facility] [address] [place], [address] Lymphocytes/100 WBC (Bld) 42.8 % High 19-41 [facility] Comment on above: Performed By: #### L 500.4050, L100.0100 #### [facility] [address] [place], [address] MCH (RBC) [Entitic mass] 30.2 pg Normal 27.0-32.0 [facility] Comment on above: Performed By: #### L 500.4050, L100.0100 #### [facility] [address] [place], [address] MCHC (RBC) [Mass/Vol] 31.3 g/dL Low 32-36 [facility] Comment on above: Performed By: #### L 500.4050, L100.0100 #### [facility] [address] [place], [address] MCV (RBC) [Entitic vol] 96.4 fL Normal 81-99 [facility] Comment on above: Performed By: #### L 500.4050, L100.0100 #### [facility] [address] [place], [address] Monocytes/100 WBC (Bld) 12.9 % High 0-10 [facility] Comment on above: Performed By: #### L 500.4050, L100.0100 #### [facility] [address] [place], [address] Neutrophils/100 WBC (Bld) 40.1 % Low 47-70 [facility] Comment on above: Performed By: #### L 500.4050, L100.0100 #### [facility] [address] [place], [address] Nucleated RBC (Bld) [#/Vol] 0 10*3/uL Normal 0-5 [facility] Comment on above: Performed By: #### L 500.4050, L100.0100 #### [facility] [address] [place], [address] Platelet mean volume (Bld) [Entitic vol] 11.3 fL Normal 6.2-12.0 [facility] Comment on above: Performed By: #### L 500.4050, L100.0100 #### [facility] [address] [place], [address] Platelets (Bld) [#/Vol] 197 10*3/uL Normal 150-450 [facility] Comment on above: Performed By: #### L 500.4050, L100.0100 #### [facility] [address] [place], [address] RBC (Bld) [#/Vol] 4.17 10*6/uL Low 4.2-5.4 [facility] Comment on above: Performed By: #### L 500.4050, L100.0100 #### [facility] [address] [place], [address] RDW SD 48.4 fl High 35.1-43.9 [facility] Comment on above: Performed By: #### L 500.4050, L100.0100 #### [facility] [address] [place], [address] WBC (Bld) [#/Vol] 5.8 10*3/uL Normal 4.4-11.0 [facility] Comment on above: Performed By: #### L 500.4050, L100.0100 #### [facility] [address] [place], [address] Comprehensive Metabolic Prof il 08-19-2023 Albumin [Mass/Vol] 3.2 g/dL Normal 3.2-5.0 [facility] Comment on above: Performed By: #### L 500.4050, L100.0100 #### [facility] [address] [place], [address] Albumin/Globulin [Mass ratio] 1.0 {ratio} Normal 0.9-2.4 [facility] Comment on above: Performed By: #### L 500.4050, L100.0100 #### [facility] [address] [place], [address] ALK P 111 U/L Normal 45-117 [facility] Comment on above: Performed By: #### L 500.4050, L100.0100 #### [facility] [address] [place], [address] ALT [Catalytic activity/Vol] 27 U/L Normal 13-56 [facility] Comment on above: Performed By: #### L 500.4050, L100.0100 #### [facility] [address] [place], [address] AST [Catalytic activity/Vol] 25 U/L Normal 15-37 [facility] Comment on above: Performed By: #### L 500.4050, L100.0100 #### [facility] [address] [place], [address] Bilirubin [Mass/Vol] 0.30 mg/dL Normal 0.20-1.00 [facility] Comment on above: Result Comment: For patients on eltrombopag therapy, use of Dimension Quail TBIL is not recommended. Performed By: #### L 500.4050, L100.0100 #### [facility] [address] [place], [address] BUN/CRE 27.4 RATIO High 10-20 [facility] Comment on above: Performed By: #### L 500.4050, L100.0100 #### [facility] [address] [place], [address] CA,Total 9.5 mg/dL Normal 8.5-10.1 [facility] Comment on above: Performed By: #### L 500.4050, L100.0100 #### [facility] [address] [place], [address] Chloride [Moles/Vol] 105 mmol/L Normal 98-107 [facility] Comment on above: Performed By: #### L 500.4050, L100.0100 #### [facility] [address] [place], [address] CO2 [Moles/Vol] 29.0 mmol/L Normal 21.0-32.0 [facility] Comment on above: Performed By: #### L 500.4050, L100.0100 #### [facility] [address] [place], [address] Creatinine [Mass/Vol] 0.73 mg/dL Normal 0.55-1.02 [facility] Comment on above: Result Comment: The validity of the calculated GFR GFRAA in patients over 70 years has not been determined. Clinical correlation is essential. Performed By: #### L 500.4050, L100.0100 #### [facility] [address] [place], [address] EST GFR - AA 98 mL/min Normal >60 [facility] Comment on above: Result Comment: Afri can [place] GFR Calc Performed By: #### L 500.4050, L100.0100 #### [facility] [address] [place], [address] GAP 5 Normal 5-15 [facility] Comment on above: Performed By: #### L 500.4050, L100.0100 #### [facility] [address] [place], [address] GFR/1.73 sq M.predicted among non-blacks MDRD (S/P/Bld) [Vol rate/Area] 81 mL/min/{1.73_m2} Normal >60 [facility] Comment on above: Result Comment: Non- GFR Calc Performed By: #### L 500.4050, L100.0100 #### [facility] [address] [place], [address] Globulin (S) [Mass/Vol] 3.3 g/dL Normal 2.2-4.2 [facility] Comment on above: Performed By: #### L 500.4050, L100.0100 #### [facility] [address] [place], [address] Glucose [Mass/Vol] 103 mg/dL Normal 74-106 [facility] Comment on above: Result Comment: Fast ing Glucose result from 100 to 125 mg/dL suggests IMPAIRED HOMEOSTASIS per A.D.A. criteria. Performed By: #### L 500.4050, L100.0100 #### [facility] [address] [place], [address] Potassium [Moles/Vol] 4.4 mmol/L Normal 3.5-5.1 [facility] Comment on above: Performed By: #### L 500.4050, L100.0100 #### [facility] [address] [place], [address] Sodium [Moles/Vol] 139 mmol/L Normal 136-145 [facility] Comment on above: Performed By: #### L 500.4050, L100.0100 #### [facility] [address] [place], [address] T PROT 6.5 g/dL Normal 6.4-8.2 [facility] Comment on above: Performed By: #### L 500.4050, L100.0100 #### [facility] [address] [place], [address] Urea nitrogen [Mass/Vol] 20 mg/dL High 7-18 [facility] Comment on above: Performed By: #### L 500.4050, L100.0100 #### [facility] [address] [place], [address] UA DIP, URINE (POC)on 2023 BILIRUBIN UA (POCT) Negative Negative [facility] CLARITY UA (POCT) Cloudy [facility] COLOR UA (POCT) Other [facility] GLUCOSE UA (POCT) Negative Negative mg/dL [facility] Hemoglobin Ql (U) Trace-intact Abnormal Negative [facility] Interpretation and review of laboratory results Abnormal [facility] KETONE UA (POCT) Negative Negative mg/dL [facility] LEUKOCYTES UA (POCT) Trace Abnormal Negative [facility] NITRITE UA (POCT) Negative Negative [facility] PH UA (POCT) 7.5 4.5 - 8.0 [facility] Protein Ql (U) Negative Negative mg/dL [facility] SPECIFIC GRAVITY UA (POCT) 1.015 1.005 - 1.030 [facility] UROBILINOGEN UA (POCT) 0.2 Normal E.U./dL [facility] Location:[address], [place], [place], [id number] [place] [address] POINT OF CARE [facility] UA DIP, URINE (POC)on 2023 BILIRUBIN UA (POCT) Negative Negative [facility] CLARITY UA (POCT) Clear [facility] COLOR UA (POCT) Yellow [facility] GLUCOSE UA (POCT) Negative Negative mg/dL [facility] Hemoglobin Ql (U) Negative Negative [facility] Interpretation and review of laboratory results Abnormal [facility] KETONE UA (POCT) Negative Negative mg/dL [facility] LEUKOCYTES UA (POCT) Small Abnormal Negative [facility] NITRITE UA (POCT) Negative Negative [facility] PH UA (POCT) 6.0 4.5 - 8.0 [facility] Protein Ql (U) Negative Negative mg/dL [facility] SPECIFIC GRAVITY UA (POCT) 1.010 1.005 - 1.030 [facility] UROBILINOGEN UA (POCT) 0.2 Normal E.U./dL [facility] Location:[address], [place], [place], [address] [place] [address] POINT OF CARE [facility] COVID & INFLUENZA A/B & RSV NAAT, ROUTINEon 06-28-2023 FLUAV RNA PRABHA+probe Ql (Unsp spec) Not detected Not Detected [facility] FLUBV RNA PRABHA+probe Ql (Unsp spec) Not detected Not Detected [facility] Interpretation and review of laboratory results Normal [facility] RSV A RNA PRABHA+probe Ql (Unsp spec) Not detected Not Detected [facility] SARS-CoV-2 (COVID-19) RNA PRABHA+probe Ql (Resp) Not detected See comment [facility] Comment on above: The method used is R T-PCR or an equivalent NAAT method. Reference Range (the expected result in uninfected individuals): Not detected For upper respirator y tract samples, this test has been authorized by FDA under Emergenecy Use Authorization (EUA). For lower respiratory tract samples, this test was developed and its performance characteristics determined by [facility]'s Michael More[facility]). It has not been cleared or approved by the FDA. [facility] is regulated under CLIA as qualified to perform high-complexity testing. This test is used for clinical purposes. It should not be regarded as investigational or for research. Test performed by [facility], Michael Moreno [facility]ology and Laboratory Medicine [place], [address] [id number]. [facility] XR Chest PA and Lateralon IMPRESSION: No acute radiographic abnormality. Self Propelled Hot Mix Roller Operator: PSCB Transcribe Date/Time: Jun 28 2023 4:08P Dictated by : LIDIA AGUILAR MD This examination was interpreted and the report reviewed and electronically signed by: LIDIA AGUILAR MD on Jun 28 2023 4:09PM [facility] DIVISION OF RADIOLOGY * * *Final Report* * * DATE OF EXAM: Jun 27 2023 3:19PM WOX [id number] - XR CHEST 2V FRONTAL/LAT / PROCEDURE REASON: multiple diagnoses * * * * Physician Interpretation * * * * EXAMINATION: CHEST RADIOGRAPH (2 VIEW FRONTAL & LATERAL) CLINICAL HISTORY: Acute cough Persistent cough MQ: XC2_6 EXAM DATE/TIME: 06/27/2023 3:19 PM COMPARISON: 09/25/2022 RESULT: Lines, tubes, and devices: None. Lungs and pleura: No consolidation. No lung mass. No pleural effusion. No pneumothorax. Cardiomediastinal silhouette: Normal cardiomediastinal silhouette. Bones and soft tissues: Unremarkable. DIVISION OF RADIOLOGY Provider, [facility] - 06/28/2023 * * *Final Report* * * DATE OF EXAM: Jun 27 2023 3:19PM WOX 5291 - XR CHEST 2V FRONTAL/LAT / PROCEDURE REASON: multiple diagnoses * * * * Physician Interpretation * * * * EXAMINATION: CHEST RADIOGRAPH (2 VIEW FRONTAL & LATERAL) CLINICAL HISTORY: Acute cough Persistent cough MQ: XC2_6 EXAM DATE/TIME: 06/27/2023 3:19 PM COMPARISON: 09/25/2022 RESULT: Lines, tubes, and devices: None. Lungs and pleura: No consolidation. No lung mass. No pleural effusion. No pneumothorax. Cardiomediastinal silhouette: Normal cardiomediastinal silhouette. Bones and soft tissues: Unremarkable. IMPRESSION IMPRESSION: No acute radiographic abnormality. Self Propelled Hot Mix Roller Operator: JAIME Transcribe Date/Time: Jun 28 2023 4:08P Dictated by : LIDIA AGUILAR MD This examination was interpreted and the report reviewed and electronically signed by: LIDIA AGUILAR MD on Jun 28 2023 4:09PM EST [facility] XR Chest PA and LateralOrder ed By: [facility] Provider on 06-28-2023 [facility] XR Chest PA and Lateralon Radiology Study observation (narrative) [facility] Absolute lymphocyte countOrd ered By: Dina Olea on 05-27-2023 Lymphocytes Auto (Unsp spec) [#/Vol] 2.45 10*3/uL 0.83-4.51 [facility] Automated lymphocyte count a s percentage of total leukocytesOrdered By: Dina Olea on 05-27-2023 Lymphocytes/100 WBC Auto (Unsp spec) 38.5 % 19-41 [facility] Basophil percentageOrdered B y: Dina Olea on 05-27-2023 Basophils/100 WBC (Bld) 0.6 % 0-1 [facility] Bilirubin [Mass/Vol] 0.30 mg/dL 0.20-1.00 [facility] Comment on above: For patients on eltr ombopag therapy, use of Dimension Quail TBIL is not recommended. Chloride [Moles/Vol] 106 mmol/L 98-107 [facility] Eosinophils/100 WBC (Bld) 5.0 % 0-5 [facility] Glucose [Mass/Vol] 96 mg/dL 74-106 [facility] Hemoglobin (Bld) [Mass/Vol] 13.0 g/dL 12.0-15.0 [facility] Monocytes/100 WBC (Bld) 12.6 % 0-10 [facility] Neutrophils (Bld) [#/Vol] 2.7 10*3/uL 2.0-7.7 [facility] Neutrophils/100 WBC (Bld) 42.8 % 47-70 [facility] Potassium [Moles/Vol] 4.7 mmol/L 3.5-5.1 [facility] Protein [Mass/Vol] 6.4 g/dL 6.4-8.2 [facility] Sodium [Moles/Vol] 138 mmol/L 136-145 [facility] WBC (Bld) [#/Vol] 6.4 10*3/uL 4.4-11.0 [facility] Determination of erythrocyte mean corpuscular volume (MCV)Ordered By: Dina Olea on 05-27-2023 MCV (RBC) [Entitic vol] 94.7 fL 81-99 [facility] Erythrocyte distribution wid th ratioOrdered By: [facility] Lefty on 05-27-2023 Erythrocyte distribution width (RBC) [Ratio] 13.6 % 11.6-14.6 [facility] Erythrocyte distribution wid th standard deviationOrdered By: [facility] Lefty on 05-27-2023 Erythrocyte distribution width (RBC) [Entitic vol] 46.5 fL 35.1-43.9 [facility] Hematocrit Auto (Bld) [Volum e fraction]Ordered By: Dina Olea on 05-27-2023 Hematocrit (Bld) [Volume fraction] 41.3 % 37-47 [facility] Immature granulocytes/100 WB C Auto (Bld)Ordered By: Dinacarlos manuel Olea on 05-27-2023 Immature granulocytes/100 WBC (Bld) 0.500 % 0.0-0.9 [facility] Comment on above: IG% - Immature Granu locytes (promyelocytes, myelocytes and metamyelocytes) > 1% indicates that a LEFT SHIFT is Present. Laboratory - Chemistry and C hemistry - challengeOrdered By: Dina Olea on 05-27-2023 Albumin/Globulin [Mass ratio] 1.0 {ratio} 0.9-2.4 [facility] ALP [Catalytic activity/Vol] 105 U/L 45-117 [facility] ALT [Catalytic activity/Vol] 33 U/L 13-56 [facility] CO2 [Moles/Vol] 28.0 mmol/L 21.0-32.0 [facility] Globulin (S) [Mass/Vol] 3.2 g/dL 2.2-4.2 [facility] Urea nitrogen/Creatinine [Mass ratio] 27.7 mg/mg 10-20 [facility] - Hematology and Cell countsOrdered By: Dina Olea on 05-27-2023 MCH (RBC) [Entitic mass] 29.8 pg 27.0-32.0 [facility] MCHC (RBC) [Mass/Vol] 31.5 g/dL 32-36 [facility] Nucleated RBC/100 WBC (Bld) [Ratio] 0 % 0-5 [facility] Platelet mean volume (Bld) [Entitic vol] 11.5 fL 6.2-12.0 [facility] Platelets (Bld) [#/Vol] 240 10*3/uL 150-450 [facility] No Panel InformationOrdered By: Dina Olea on 05-27-2023 Estimated GFR (MDRD) Amer 105 mL/min >60 [facility] Comment on above: GFR Calc Estimated GFR (MDRD) Non-Af Amer 87 mL/min >60 [facility] Comment on above: Non- GFR Calc RBC Auto (Bld) [#/Vol]Ordere d By: Dina Olea on 05-27-2023 RBC (Bld) [#/Vol] 4.36 10*6/uL 4.2-5.4 [facility] Serum or plasma calcium enmanuel urement (mass/volume)Ordered By: Dina Olea on 05-27-2023 Calcium [Mass/Vol] 8.9 mg/dL 8.5-10.1 [facility] Serum or plasma creatinine m easurement (mass/volume)Ordered By: Dina Olea on 05-27-2023 Creatinine [Mass/Vol] 0.69 mg/dL 0.55-1.02 [facility] Comment on above: The validity of the calculated GFR & GFRAA in patients over 70 years has not been determined. Clinical correlation is essential. Serum or plasma urea nitroge n measurement (mass/volume)Ordered By: Dina Olea on 05-27-2023 Urea nitrogen [Mass/Vol] 19 mg/dL 7-18 [facility] Thin prep Papanicolaou smear with manual screeningOrdered By: Dina Olea on 05-27-2023 Thin prep Papanicolaou smear with manual screening 3.2 g/dL 3.2-5.0 [facility] Thin prep Papanicolaou smear with manual screening 28 U/L 15-37 [facility] Thin prep Papanicolaou smear with manual screening 4 5-15 [facility] MRI 3D POST PROCESSINGon MRI 3D POST PROCESSING * * *Final Report* * * DATE OF EXAM: May 22 2023 6:14PM [facility] 0280 - MRI 3D POST PROCESSING / PROCEDURE REASON: multiple diagnoses * * * * Physician Interpretation * * * * MRI ABDOMEN WITHOUT AND WITH IV CONTRAST , 3D REFORMATTED IMAGES CLINICAL HISTORY: Pancreatic cystic lesion TECHNIQUE: Magnet: 1.5T scanner. Multiplanar MRI of the abdomen with multiple sequences, including both pre- and post-contrast imaging. Additional MR cholangiopancreatography sequences were performed. Image post-processing {Maximum intensity Projection (MIP)} images were created at an off-line workstation by the interpreting physician or with concurrent physician supervision, with images created, reviewed and archived. Contrast: Intravenous: 10 ML @1753 ml of Dotarem COMPARISON: MRI 12/27/2022 RESULT: Liver: Normal morphology. No hepatic steatosis. No mass. Biliary: No intrahepatic or extrahepatic bile duct dilation. No biliary filling defect. Gallbladder is normal. Spleen: No mass. No splenomegaly. Pancreas: No pancreatic ductal dilatation. Again seen is a loculated cystic lesion in the pancreatic body measuring 1.8 cm (8:25), without definite communication to the duct. No suspicious enhancing nodules. Adrenals: No mass. Kidneys: No solid or cystic mass. No hydronephrosis. GI: No dilated bowel or wall thickening along imaged segments. Lymph nodes: No abdominal lymphadenopathy. Mesentery / Peritoneum / Retroperitoneum: No ascites or mass. Vasculature: The celiac axis and SMA are patent. The portal vein and branches, splenic vein, SMV, and hepatic veins are patent. There are atherosclerotic changes without aneurysmal dilation. Bones/Soft Tissues: Degenerative changes. Lower chest: Unremarkable. IMPRESSION: Unchanged lobulated cystic lesion in the pancreatic body, without definite communication to the nondilated duct. No suspicious enhancing nodules. Differential includes a sidebranch IPMN or an oligocystic serous adenoma. Self Propelled Hot Mix Roller Operator: JAIME Transcribe Date/Time: May 24 2023 11:23A Dictated by : MYNOR VILLANUEVA MD This examination was interpreted and the report reviewed and electronically signed by: MYNOR VILLANUEVA MD on May 24 2023 11:36AM EST [id number] [facility] MRI PANC/ARETHA WO/W IVCONon MRI PANC/ARETHA WO/W IVCON * * *Final Report* * * DATE OF EXAM: May 22 2023 6:12PM [facility] 0730 - MRI PANC/ARETHA WO/W IVCON / PROCEDURE REASON: multiple diagnoses * * * * Physician Interpretation * * * * MRI ABDOMEN WITHOUT AND WITH IV CONTRAST , 3D REFORMATTED IMAGES CLINICAL HISTORY: Pancreatic cystic lesion TECHNIQUE: Magnet: 1.5T scanner. Multiplanar MRI of the abdomen with multiple sequences, including both pre- and post-contrast imaging. Additional MR cholangiopancreatography sequences were performed. Image post-processing {Maximum intensity Projection (MIP)} images were created at an off-line workstation by the interpreting physician or with concurrent physician supervision, with images created, reviewed and archived. Contrast: Intravenous: 10 ML @1753 ml of Dotarem COMPARISON: MRI 12/27/2022 RESULT: Liver: Normal morphology. No hepatic steatosis. No mass. Biliary: No intrahepatic or extrahepatic bile duct dilation. No biliary filling defect. Gallbladder is normal. Spleen: No mass. No splenomegaly. Pancreas: No pancreatic ductal dilatation. Again seen is a loculated cystic lesion in the pancreatic body measuring 1.8 cm (8:25), without definite communication to the duct. No suspicious enhancing nodules. Adrenals: No mass. Kidneys: No solid or cystic mass. No hydronephrosis. GI: No dilated bowel or wall thickening along imaged segments. Lymph nodes: No abdominal lymphadenopathy. Mesentery / Peritoneum / Retroperitoneum: No ascites or mass. Vasculature: The celiac axis and SMA are patent. The portal vein and branches, splenic vein, SMV, and hepatic veins are patent. There are atherosclerotic changes without aneurysmal dilation. Bones/Soft Tissues: Degenerative changes. Lower chest: Unremarkable. IMPRESSION: Unchanged lobulated cystic lesion in the pancreatic body, without definite communication to the nondilated duct. No suspicious enhancing nodules. Differential includes a sidebranch IPMN or an oligocystic serous adenoma. Self Propelled Hot Mix Roller Operator: JAIME Transcribe Date/Time: May 24 2023 11:23A Dictated by : MYNOR VILLANUEVA MD This examination was interpreted and the report reviewed and electronically signed by: MYNOR VILLANUEVA MD on May 24 2023 11:36AM EST [id number] Normal [facility] No Panel Informationon 05-07 [facility] US ABD RIGHT UPPER QUADRANTo n 05-08-2023 US ABD RIGHT UPPER QUADRANT * * *Final Report* * * DATE OF EXAM: May 08 2023 2:23PM [facility] 1032 - US ABD RIGHT UPPER QUADRANT / PROCEDURE REASON: multiple diagnoses * * * * Physician Interpretation * * * * EXAMINATION: RIGHT UPPER QUADRANT AND SPLEEN ULTRASOUND CLINICAL HISTORY: Abdominal pain Abnormal labs, TECHNIQUE: Sonography of the right upper quadrant and spleen was performed. Images were obtained and stored in a permanent archive. MQ: URUQ_2 COMPARISON: MRI of the pancreas 12/27/2022 and prior RESULT: Pancreas: Normal sonographic appearance of the proximal pancreas. The cystic pancreatic lesion noted on the prior MRI is not identified on the visualized portions of this exam. Liver: Echotexture: Normal, homogeneous. Echogenicity: Normal Surface contour: Smooth Lesions: None. Biliary: No intrahepatic biliary duct dilation. CBD: 0.5 cm at the hilum. Gallbladder: Normal caliber -Contents: No cholelithiasis -Wall: Normal -Other: No pericholecystic fluid. Negative sonographic Greene sign. Right Kidney: No hydronephrosis. Ascites: None. Spleen: The craniocaudal length of the spleen is 8 cm, within normal limits. There are no splenic lesions. Left kidney: No hydronephrosis. IMPRESSION: No acute abnormalities in the right upper quadrant. No splenomegaly. Self Propelled Hot Mix Roller Operator: Airtime Transcribe Date/Time: May 08 2023 2:24P Dictated by : PAULA CONTRERAS MD This examination was interpreted and the report reviewed and electronically signed by: PAULA CONTRERAS MD on May 08 2023 2:27PM EST [id number] Normal [facility] US ABD SPLEEN -NBon 05-08-19 US ABD SPLEEN -NB * * *Final Report* * * DATE OF EXAM: May 08 2023 2:23PM [facility] 1232 - US ABD SPLEEN -NB / PROCEDURE REASON: multiple diagnoses * * * * Physician Interpretation * * * * EXAMINATION: RIGHT UPPER QUADRANT AND SPLEEN ULTRASOUND CLINICAL HISTORY: Abdominal pain Abnormal labs, TECHNIQUE: Sonography of the right upper quadrant and spleen was performed. Images were obtained and stored in a permanent archive. MQ: URUQ_2 COMPARISON: MRI of the pancreas 12/27/2022 and prior RESULT: Pancreas: Normal sonographic appearance of the proximal pancreas. The cystic pancreatic lesion noted on the prior MRI is not identified on the visualized portions of this exam. Liver: Echotexture: Normal, homogeneous. Echogenicity: Normal Surface contour: Smooth Lesions: None. Biliary: No intrahepatic biliary duct dilation. CBD: 0.5 cm at the hilum. Gallbladder: Normal caliber -Contents: No cholelithiasis -Wall: Normal -Other: No pericholecystic fluid. Negative sonographic Greene sign. Right Kidney: No hydronephrosis. Ascites: None. Spleen: The craniocaudal length of the spleen is 8 cm, within normal limits. There are no splenic lesions. Left kidney: No hydronephrosis. IMPRESSION: No acute abnormalities in the right upper quadrant. No splenomegaly. Self Propelled Hot Mix Roller Operator: PSCB Transcribe Date/Time: May 08 2023 2:24P Dictated by : PAULA CONTRERAS MD This examination was interpreted and the report reviewed and electronically signed by: PAULA CONTRERAS MD on May 08 2023 2:27PM EST [id number] Normal [facility] Absolute lymphocyte countOrd ered By: Dina Olea on 03-11-2023 Lymphocytes Auto (Unsp spec) [#/Vol] 2.16 10*3/uL 0.83-4.51 [facility] Basophil percentageOrdered B y: Dina Olea on 03-11-2023 Basophils/100 WBC (Bld) 0.3 % 0-1 [facility] Bilirubin [Mass/Vol] 0.40 mg/dL 0.20-1.00 [facility] Comment on above: For patients on eltr ombopag therapy, use of Dimension Quail TBIL is not recommended. Chloride [Moles/Vol] 106 mmol/L 98-107 [facility] Eosinophils/100 WBC (Bld) 3.0 % 0-5 [facility] Glucose [Mass/Vol] 97 mg/dL 74-106 [facility] Neutrophils (Bld) [#/Vol] 3.5 10*3/uL 2.0-7.7 [facility] Neutrophils/100 WBC (Bld) 51.5 % 47-70 [facility] Potassium [Moles/Vol] 3.9 mmol/L 3.5-5.1 [facility] Protein [Mass/Vol] 6.5 g/dL 6.4-8.2 [facility] Sodium [Moles/Vol] 139 mmol/L 136-145 [facility] WBC (Bld) [#/Vol] 6.7 10*3/uL 4.4-11.0 [facility] Blood erythrocytes count (nu mber/volume)Ordered By: Dina Olea on 03-11-2023 RBC (Bld) [#/Vol] 4.09 10*6/uL 4.2-5.4 [facility] Blood hemoglobin measurement (mass/volume)Ordered By: Dina Olea on 03-11-2023 Hemoglobin (Bld) [Mass/Vol] 12.4 g/dL 12.0-15.0 [facility] Blood lymphocytes/100 leukoc ytesOrdered By: Dina Olea on 03-11-2023 Lymphocytes/100 WBC (Bld) 32.2 % 19-41 [facility] Blood monocytes/100 leukocyt esOrdered By: Dina Olea on 03-11-2023 Monocytes/100 WBC (Bld) 12.7 % 0-10 [facility] Blood platelet mean volumeOr dered By: Dina Olea on 03-11-2023 Platelet mean volume (Bld) [Entitic vol] 11.2 fL 6.2-12.0 [facility] Determination of erythrocyte mean corpuscular volume (MCV)Ordered By: Dina Olea on 03-11-2023 MCV (RBC) [Entitic vol] 95.8 fL 81-99 [facility] Hematocrit Auto (Bld) [Volum e fraction]Ordered By: Dina Olea on 03-11-2023 Hematocrit (Bld) [Volume fraction] 39.2 % 37-47 [facility] Laboratory - Chemistry and C hemistry - challengeOrdered By: Dina Olea on 03-11-2023 ALP [Catalytic activity/Vol] 105 U/L 45-117 [facility] ALT [Catalytic activity/Vol] 31 U/L 13-56 [facility] CO2 [Moles/Vol] 30.0 mmol/L 21.0-32.0 [facility] Globulin (S) [Mass/Vol] 3.2 g/dL 2.2-4.2 [facility] Urea nitrogen/Creatinine [Mass ratio] 26.0 mg/mg 10-20 [facility] Laboratory - Hematology and Cell countsOrdered By: Dina Olea on 03-11-2023 Erythrocyte distribution width (RBC) [Entitic vol] 50.4 fL 35.1-43.9 [facility] Erythrocyte distribution width (RBC) [Ratio] 14.6 % 11.6-14.6 [facility] Immature granulocytes/100 WBC (Bld) 0.300 % 0.0-0.9 [facility] Comment on above: IG% - Immature Granu locytes (promyelocytes, myelocytes and metamyelocytes) > 1% indicates that a LEFT SHIFT is Present. MCH (RBC) [Entitic mass] 30.3 pg 27.0-32.0 [facility] Nucleated RBC/100 WBC (Bld) [Ratio] 0 % 0-5 [facility] MCHC Auto (RBC) [Mass/Vol]Or dered By: Dina Olea on 03-11-2023 MCHC (RBC) [Mass/Vol] 31.6 g/dL 32-36 [facility] No Panel InformationOrdered By: Dina Olea on 03-11-2023 Estimated GFR (MDRD) Amer 104 mL/min >60 [facility] Comment on above: GFR Calc Estimated GFR (MDRD) Non-Af Amer 86 mL/min >60 [facility] Comment on above: Non- GFR Calc Platelets bldOrdered By: Violet Olea on 03-11-2023 Platelets (Bld) [#/Vol] 201 10*3/uL 150-450 [facility] Serum or plasma albumin enmanuel urement (mass/volume)Ordered By: Dina Olea on 03-11-2023 Albumin [Mass/Vol] 3.3 g/dL 3.2-5.0 [facility] Serum or plasma albumin/glob ulin mass ratioOrdered By: Dina Olea on 03-11-2023 Albumin/Globulin [Mass ratio] 1.0 {ratio} 0.9-2.4 [facility] Serum or plasma calcium enmanuel urement (mass/volume)Ordered By: Dina Olea on 03-11-2023 Calcium [Mass/Vol] 9.0 mg/dL 8.5-10.1 [facility] Serum or plasma creatinine m easurement (mass/volume)Ordered By: Dina Olea on 03-11-2023 Creatinine [Mass/Vol] 0.69 mg/dL 0.55-1.02 [facility] Comment on above: The validity of the calculated GFR & GFRAA in patients over 70 years has not been determined. Clinical correlation is essential. Serum or plasma urea nitroge n measurement (mass/volume)Ordered By: Dina Olea on 03-11-2023 Urea nitrogen [Mass/Vol] 18 mg/dL 7-18 [facility] Thin prep Papanicolaou smear with manual screeningOrdered By: Dina Olea on 03-11-2023 Thin prep Papanicolaou smear with manual screening 29 U/L 15-37 [facility] Thin prep Papanicolaou smear with manual screening 3 5-15 [facility] UA DIP, URINE (POC)on 2022 BILIRUBIN UA (POCT) Negative Negative [facility] CLARITY UA (POCT) Clear [facility] COLOR UA (POCT) Yellow [facility] GLUCOSE UA (POCT) Negative Negative mg/dL [facility] Hemoglobin Ql (U) Negative Negative [facility] KETONE UA (POCT) Negative Negative mg/dL [facility] LEUKOCYTES UA (POCT) Trace Abnormal Negative [facility] NITRITE UA (POCT) Negative Negative [facility] PH UA (POCT) 7.0 4.5 - 8.0 [facility] Protein Ql (U) Negative Negative mg/dL [facility] SPECIFIC GRAVITY UA (POCT) 1.015 1.005 - 1.030 [facility] UROBILINOGEN UA (POCT) 0.2 E.U./dL Normal E.U./dL [facility] CT HEAD OR BRAIN W/O CONTRAS Ton 01-19-2023 CT HEAD OR BRAIN W/O CONTRAST ORIGINAL EXAMINATION: CT OF THE HEAD WITHOUT CONTRAST 01/19/2023 1:09 pm TECHNIQUE: CT of the head was performed without the administration of intravenous contrast. Automated exposure control, iterative reconstruction, and/or weight based adjustment of the mA/kV was utilized to reduce the radiation dose to as low as reasonably achievable. COMPARISON: None. HISTORY: ORDERING SYSTEM PROVIDED HISTORY: Reason for Exam: fall pain FINDINGS: BRAIN/VENTRICLES: There is no acute intracranial hemorrhage, mass effect or midline shift. No abnormal extra-axial fluid collection. The simeon-white differentiation is maintained without evidence of an acute infarct. There is no evidence of hydrocephalus. ORBITS: The visualized portion of the orbits demonstrate no acute abnormality. SINUSES: The visualized paranasal sinuses and mastoid air cells demonstrate no acute abnormality. SOFT TISSUES/SKULL: No acute abnormality of the visualized skull or soft tissues. IMPRESSION: No acute intracranial abnormality. Interpreted by: Akhil Hardy MD Preliminary Report By: Akhil Hardy MD Electronically signed By Akhil Hardy MD Dictated Date: 01/19/2023 1:21:57 PM Prelim Date: 01/19/2023 1:25:21 PM Sign Date: 01/19/2023 1:25:21 PM Ordering Provider: MIRA Hooper [facility] ([place]) CT SPINE CERVICAL W/O CONTRA STon 01-19-2023 CT SPINE CERVICAL W/O CONTRAST ORIGINAL EXAMINATION: CT OF THE CERVICAL SPINE WITHOUT CONTRAST 01/19/2023 1:09 pm TECHNIQUE: CT of the cervical spine was performed without the administration of intravenous contrast. Multiplanar reformatted images are provided for review. Automated exposure control, iterative reconstruction, and/or weight based adjustment of the mA/kV was utilized to reduce the radiation dose to as low as reasonably achievable. COMPARISON: None. HISTORY: ORDERING SYSTEM PROVIDED HISTORY: Reason for Exam: fall pain FINDINGS: BONES/ALIGNMENT: There is no acute fracture. DEGENERATIVE CHANGES: There is multilevel disc height loss seen from the levels of C3 through C7. The vertebral bodies of C3-C4-C5 are fused. There is grade 1 retrolisthesis of L3 on L4 as well as of L4 on L5. There is grade 1 anterolisthesis of C6 on C7 as well as of C7 on T1. Degenerative endplate changes are noted. Multilevel anterior osteophytes are seen. Multilevel facet arthropathy and uncovertebral joint hypertrophy is seen. The left-sided facets at C4-C5 are fused. There are varying degrees of neural foraminal stenosis appreciated. No high-grade central canal stenosis is noted. SOFT TISSUES: There is no prevertebral soft tissue swelling. IMPRESSION: No acute fracture with multilevel degenerative changes as described above. Interpreted by: Akhil Hardy MD Preliminary Report By: Akhil Hardy MD Electronically signed By Akhil Hardy MD Dictated Date: 01/19/2023 1:25:34 PM Prelim Date: 01/19/2023 1:32:00 PM Sign Date: 01/19/2023 1:32:00 PM Ordering Provider: MIRA VILLATORO [facility] ([place]) XR Knee AP and Lateral and Cristhian mata 01-12-2023 IMPRESSION: Stable T KA Self Propelled Hot Mix Roller Operator: JAIME Transcribe Date/Time: Jan 12 2023 3:07P Dictated by : ISAI PENNINGTON MD This examination was interpreted and the report reviewed and electronically signed by: ISAI PENNINGTON MD on Jan 12 2023 3:08PM EST [facility] * * *Final Report* * * DATE OF EXAM: Jan 11 2023 7:47AM NADYA 5208 - XR KNEE 3V AP/LAT/MERCHANT LT / PROCEDURE REASON: M25.562-Left knee pain, unspecified chronicity * * * * Physician Interpretation * * * * PROCEDURE: Left knee INDICATION: Left knee pain, unspecified chronicity . TECHNIQUE: XR KNEE 3V AP/LAT/MERCHANT LT COMPARISON: 12/22/2021 FINDINGS: The total knee arthroplasty remains in satisfactory position without evidence for loosening. No periprosthetic fracture. Small joint effusion. Right TKA is evident. [facility] Provider, Fatimah Ku - 01/12/2023 * * *Final Report* * * DATE OF EXAM: Jan 11 2023 7:47AM NADYA 5208 - XR KNEE 3V AP/LAT/MERCHANT LT / PROCEDURE REASON: M25.562-Left knee pain, unspecified chronicity * * * * Physician Interpretation * * * * PROCEDURE: Left knee INDICATION: Left knee pain, unspecified chronicity . TECHNIQUE: XR KNEE 3V AP/LAT/MERCHANT LT COMPARISON: 12/22/2021 FINDINGS: The total knee arthroplasty remains in satisfactory position without evidence for loosening. No periprosthetic fracture. Small joint effusion. Right TKA is evident. IMPRESSION IMPRESSION: Stable TKA Self Propelled Hot Mix Roller Operator: PSCB Transcribe Date/Time: Jan 12 2023 3:07P Dictated by : ISAI PENNINGTON MD This examination was interpreted and the report reviewed and electronically signed by: ISAI PENNINGTON MD on Jan 12 2023 3:08PM EST [facility] XR Knee AP and Lateral and M erchantsOrdered By: [facility] Provider on 01-12-2023 [facility] C-REACTIVE PROTEIN (CRP)on 03-13-2022 CRP [Mass/Vol] 3.7 mg/dL High <0.9 mg/dL [facility] XR Knee AP and Lateral and M erchantson 01-11-2023 Radiology Study observation (narrative) [facility] No Panel Informationon 12-27 [facility] Absolute lymphocyte countOrd ered By: Dina Olea on 12-11-2022 Lymphocytes Auto (Unsp spec) [#/Vol] 1.78 10*3/uL 0.83-4.51 [facility] Basophil percentageOrdered B y: Dina Olea on 12-11-2022 Basophils/100 WBC (Bld) 0.7 % 0-1 [facility] Bilirubin [Mass/Vol] 0.50 mg/dL 0.20-1.00 [facility] Comment on above: For patients on eltr ombopag therapy, use of Dimension Quail TBIL is not recommended. Chloride [Moles/Vol] 106 mmol/L 98-107 [facility] Eosinophils/100 WBC (Bld) 2.8 % 0-5 [facility] Glucose [Mass/Vol] 94 mg/dL 74-106 [facility] Neutrophils (Bld) [#/Vol] 3.5 10*3/uL 2.0-7.7 [facility] Neutrophils/100 WBC (Bld) 58.0 % 47-70 [facility] Potassium [Moles/Vol] 4.4 mmol/L 3.5-5.1 [facility] Protein [Mass/Vol] 6.4 g/dL 6.4-8.2 [facility] Sodium [Moles/Vol] 138 mmol/L 136-145 [facility] WBC (Bld) [#/Vol] 6.0 10*3/uL 4.4-11.0 [facility] Blood erythrocytes count (nu mber/volume)Ordered By: Dina Olea on 12-11-2022 RBC (Bld) [#/Vol] 4.04 10*6/uL 4.2-5.4 [facility] Blood hemoglobin measurement (mass/volume)Ordered By: Dina Olea on 12-11-2022 Hemoglobin (Bld) [Mass/Vol] 12.2 g/dL 12.0-15.0 [facility] Blood lymphocytes/100 leukoc ytesOrdered By: Dina Olea on 12-11-2022 Lymphocytes/100 WBC (Bld) 29.5 % 19-41 [facility] Blood monocytes/100 leukocyt esOrdered By: Dina Olea on 12-11-2022 Monocytes/100 WBC (Bld) 8.5 % 0-10 [facility] Blood platelet mean volumeOr dered By: Dina Olea on 12-11-2022 Platelet mean volume (Bld) [Entitic vol] 9.8 fL 6.2-12.0 [facility] Determination of erythrocyte mean corpuscular volume (MCV)Ordered By: Dina Olea on 12-11-2022 MCV (RBC) [Entitic vol] 96.8 fL 81-99 [facility] Hematocrit Auto (Bld) [Volum e fraction]Ordered By: Dina Olea on 12-11-2022 Hematocrit (Bld) [Volume fraction] 39.1 % 37-47 [facility] Laboratory - Chemistry and C hemistry - challengeOrdered By: Dina Olae on 12-11-2022 ALP [Catalytic activity/Vol] 113 U/L 45-117 [facility] ALT [Catalytic activity/Vol] 29 U/L 13-56 [facility] CO2 [Moles/Vol] 30.0 mmol/L 21.0-32.0 [facility] Globulin (S) [Mass/Vol] 3.4 g/dL 2.2-4.2 [facility] Urea nitrogen/Creatinine [Mass ratio] 16.7 mg/mg 10-20 [facility] Laboratory - Hematology and Cell countsOrdered By: Dina Olea on 12-11-2022 Erythrocyte distribution width (RBC) [Entitic vol] 46.9 fL 35.1-43.9 [facility] Erythrocyte distribution width (RBC) [Ratio] 13.3 % 11.6-14.6 [facility] Immature granulocytes/100 WBC (Bld) 0.500 % 0.0-0.9 [facility] Comment on above: IG% - Immature Granu locytes (promyelocytes, myelocytes and metamyelocytes) > 1% indicates that a LEFT SHIFT is Present. MCH (RBC) [Entitic mass] 30.2 pg 27.0-32.0 [facility] Nucleated RBC/100 WBC (Bld) [Ratio] 0 % 0-5 [facility] MCHC Auto (RBC) [Mass/Vol]Or dered By: Dina Olea on 12-11-2022 MCHC (RBC) [Mass/Vol] 31.2 g/dL 32-36 [facility] No Panel InformationOrdered By: Dina Olea on 12-11-2022 Estimated GFR (MDRD) Amer 123 mL/min >60 [facility] Comment on above: GFR Calc Estimated GFR (MDRD) Non-Af Amer 102 mL/min >60 [facility] Comment on above: Non- GFR Calc Platelets bldOrdered By: Violet Olea on 12-11-2022 Platelets (Bld) [#/Vol] 282 10*3/uL 150-450 [facility] Serum or plasma albumin enmanule urement (mass/volume)Ordered By: Dina Olea on 12-11-2022 Albumin [Mass/Vol] 3.0 g/dL 3.2-5.0 [facility] Serum or plasma albumin/glob ulin mass ratioOrdered By: Dina Olea on 12-11-2022 Albumin/Globulin [Mass ratio] 0.9 {ratio} 0.9-2.4 [facility] Serum or plasma calcium enmanuel urement (mass/volume)Ordered By: Dina Olea on 12-11-2022 Calcium [Mass/Vol] 8.9 mg/dL 8.5-10.1 [facility] Serum or plasma creatinine m easurement (mass/volume)Ordered By: Dina Olea on 12-11-2022 Creatinine [Mass/Vol] 0.60 mg/dL 0.55-1.02 [facility] Comment on above: The validity of the calculated GFR & GFRAA in patients over 70 years has not been determined. Clinical correlation is essential. Serum or plasma urea nitroge n measurement (mass/volume)Ordered By: Dina Olea on 12-11-2022 Urea nitrogen [Mass/Vol] 10 mg/dL 7-18 [facility] Thin prep Papanicolaou smear with manual screeningOrdered By: Dina Olea on 12-11-2022 Thin prep Papanicolaou smear with manual screening 25 U/L 15-37 [facility] Thin prep Papanicolaou smear with manual screening 2 5-15 [facility] DXA-AXIAL SKELETONon [address] [facility] [address] CHEST IVCONon 11-23-19 23 Radiology Result ACTIONABLE Abnormal [facility] UA DIP, URINE (POC)on 2022 BILIRUBIN UA (POCT) Negative Negative [facility] CLARITY UA (POCT) Clear [facility] COLOR UA (POCT) [place] [facility] GLUCOSE UA (POCT) Negative Negative mg/dL [facility] Hemoglobin Ql (U) Large Abnormal Negative [facility] KETONE UA (POCT) Negative Negative mg/dL [facility] LEUKOCYTES UA (POCT) Moderate Abnormal Negative [facility] PH UA (POCT) 7.5 4.5 - 8.0 [facility] Protein Ql (U) 30 mg/dL Abnormal Negative mg/dL [facility] SPECIFIC GRAVITY UA (POCT) 1.015 1.005 - 1.030 [facility] UROBILINOGEN UA (POCT) 0.2 E.U./dL Normal E.U./dL [facility] XR Chest PA and Lateralon IMPRESSION: No acute radiographic abnormality. Self Propelled Hot Mix Roller Operator: JAIME Transcribe Date/Time: Sep 28 2022 11:32A Dictated by : EMRE NARANJO MD This examination was interpreted and the report reviewed and electronically signed by: EMRE NARANJO MD on Sep 28 2022 11:32AM [facility] DIVISION OF RADIOLOGY * * *Final Report* * * DATE OF EXAM: Sep 25 2022 1:54PM WOX 5291 - XR CHEST 2V FRONTAL/LAT / PROCEDURE REASON: Acute cough * * * * Physician Interpretation * * * * EXAMINATION: CHEST RADIOGRAPH (2 VIEW FRONTAL & LATERAL) CLINICAL HISTORY: Acute cough MQ: XC2_6 EXAM DATE/TIME: 09/25/2022 1:54 PM COMPARISON: Chest x-ray on 10/05/2021 RESULT: Lines, tubes, and devices: None. Lungs and pleura: No consolidation. No lung mass. No pleural effusion. No pneumothorax. Cardiomediastinal silhouette: Normal cardiomediastinal silhouette. Bones and soft tissues: There are degenerative changes in the spine. DIVISION OF RADIOLOGY Provider, [facility] - 09/28/2022 * * *Final Report* * * DATE OF EXAM: Sep 25 2022 1:54PM WOX 5291 - XR CHEST 2V FRONTAL/LAT / PROCEDURE REASON: Acute cough * * * * Physician Interpretation * * * * EXAMINATION: CHEST RADIOGRAPH (2 VIEW FRONTAL & LATERAL) CLINICAL HISTORY: Acute cough MQ: XC2_6 EXAM DATE/TIME: 09/25/2022 1:54 PM COMPARISON: Chest x-ray on 10/05/2021 RESULT: Lines, tubes, and devices: None. Lungs and pleura: No consolidation. No lung mass. No pleural effusion. No pneumothorax. Cardiomediastinal silhouette: Normal cardiomediastinal silhouette. Bones and soft tissues: There are degenerative changes in the spine. IMPRESSION IMPRESSION: No acute radiographic abnormality. Self Propelled Hot Mix Roller Operator: [facility] Transcribe Date/Time: Sep 28 2022 11:32A Dictated by : EMRE NARANJO MD This examination was interpreted and the report reviewed and electronically signed by: EMRE NARANJO MD on Sep 28 2022 11:32AM EST [facility] XR Chest PA and LateralOrder ed By: [facility] Provider on 09-28-2022 [facility] XR Chest PA and Lateralon Radiology Study observation (narrative) [facility] Absolute lymphocyte countOrd ered By: Dina Olea on 09-13-2022 Lymphocytes Auto (Unsp spec) [#/Vol] 1.44 10*3/uL 0.83-4.51 [facility] Basophil percentageOrdered B y: Dina Olea on 09-13-2022 Basophils/100 WBC (Bld) 0.4 % 0-1 [facility] Bilirubin [Mass/Vol] 0.70 mg/dL 0.20-1.00 [facility] Comment on above: For patients on eltr ombopag therapy, use of Dimension Quail TBIL is not recommended. Chloride [Moles/Vol] 108 mmol/L 98-107 [facility] Eosinophils/100 WBC (Bld) 3.0 % 0-5 [facility] Glucose [Mass/Vol] 90 mg/dL 74-106 [facility] Neutrophils (Bld) [#/Vol] 3.3 10*3/uL 2.0-7.7 [facility] Neutrophils/100 WBC (Bld) 61.2 % 47-70 [facility] Potassium [Moles/Vol] 4.3 mmol/L 3.5-5.1 [facility] Protein [Mass/Vol] 6.3 g/dL 6.4-8.2 [facility] Sodium [Moles/Vol] 139 mmol/L 136-145 [facility] WBC (Bld) [#/Vol] 5.4 10*3/uL 4.4-11.0 [facility] Blood erythrocytes count (nu mber/volume)Ordered By: Dina Olea on 09-13-2022 RBC (Bld) [#/Vol] 3.90 10*6/uL 4.2-5.4 [facility] Blood hemoglobin measurement (mass/volume)Ordered By: Dina Olea on 09-13-2022 Hemoglobin (Bld) [Mass/Vol] 12.0 g/dL 12.0-15.0 [facility] Blood lymphocytes/100 leukoc ytesOrdered By: Dina Olea on 09-13-2022 Lymphocytes/100 WBC (Bld) 26.8 % 19-41 [facility] Blood monocytes/100 leukocyt esOrdered By: Dina Olea on 09-13-2022 Monocytes/100 WBC (Bld) 8.4 % 0-10 [facility] Blood platelet mean volumeOr dered By: Dina Olea on 09-13-2022 Platelet mean volume (Bld) [Entitic vol] 11.3 fL 6.2-12.0 [facility] Determination of erythrocyte mean corpuscular volume (MCV)Ordered By: Dina Olea on 09-13-2022 MCV (RBC) [Entitic vol] 96.2 fL 81-99 [facility] Hematocrit Auto (Bld) [Volum e fraction]Ordered By: Dina Lefty on 09-13-2022 Hematocrit (Bld) [Volume fraction] 37.5 % 37-47 [facility] Laboratory - Chemistry and C hemistry - challengeOrdered By: [facility] Lefty on 09-13-2022 ALP [Catalytic activity/Vol] 95 U/L 45-117 [facility] ALT [Catalytic activity/Vol] 28 U/L 13-56 [facility] CO2 [Moles/Vol] 25.0 mmol/L 21.0-32.0 [facility] Globulin (S) [Mass/Vol] 3.0 g/dL 2.2-4.2 [facility] Urea nitrogen/Creatinine [Mass ratio] 21.9 mg/mg 10-20 [facility] Laboratory - Hematology and Cell countsOrdered By: Dina Olea on 09-13-2022 Erythrocyte distribution width (RBC) [Entitic vol] 49.1 fL 35.1-43.9 [facility] Erythrocyte distribution width (RBC) [Ratio] 14.0 % 11.6-14.6 [facility] Immature granulocytes/100 WBC (Bld) 0.200 % 0.0-0.9 [facility] Comment on above: IG% - Immature Granu locytes (promyelocytes, myelocytes and metamyelocytes) > 1% indicates that a LEFT SHIFT is Present. MCH (RBC) [Entitic mass] 30.8 pg 27.0-32.0 [facility] Nucleated RBC/100 WBC (Bld) [Ratio] 0 % 0-5 [facility] MCHC Auto (RBC) [Mass/Vol]Or dered By: Dina Olea on 09-13-2022 MCHC (RBC) [Mass/Vol] 32.0 g/dL 32-36 [facility] No Panel InformationOrdered By: Dina Olea on 09-13-2022 Estimated GFR (MDRD) Amer 106 mL/min >60 [facility] Comment on above: GFR Calc Estimated GFR (MDRD) Non-Af Amer 87 mL/min >60 [facility] Comment on above: Non- GFR Calc Platelets bldOrdered By: Violet Olea on 09-13-2022 Platelets (Bld) [#/Vol] 201 10*3/uL 150-450 [facility] Serum or plasma albumin enmanuel urement (mass/volume)Ordered By: Dina Olea on 09-13-2022 Albumin [Mass/Vol] 3.3 g/dL 3.2-5.0 [facility] Serum or plasma albumin/glob ulin mass ratioOrdered By: Dina Olea on 09-13-2022 Albumin/Globulin [Mass ratio] 1.1 {ratio} 0.9-2.4 [facility] Serum or plasma calcium enmanuel urement (mass/volume)Ordered By: Dina Olea on 09-13-2022 Calcium [Mass/Vol] 8.7 mg/dL 8.5-10.1 [facility] Serum or plasma creatinine m easurement (mass/volume)Ordered By: Dina Olea on 09-13-2022 Creatinine [Mass/Vol] 0.68 mg/dL 0.55-1.02 [facility] Comment on above: The validity of the calculated GFR & GFRAA in patients over 70 years has not been determined. Clinical correlation is essential. Serum or plasma urea nitroge n measurement (mass/volume)Ordered By: Dina Olea on 09-13-2022 Urea nitrogen [Mass/Vol] 15 mg/dL 7-18 [facility] Thin prep Papanicolaou smear with manual screeningOrdered By: Dina Olea on 09-13-2022 Thin prep Papanicolaou smear with manual screening 28 U/L 15-37 [facility] Thin prep Papanicolaou smear with manual screening 6 5-[address] [facility] [address] BRAIN WO IVCONon 08-16-19 [facility] Absolute lymphocyte countOrd ered By: Dina Olea on 06-25-2022 Lymphocytes Auto (Unsp spec) [#/Vol] 1.95 10*3/uL 0.83-4.51 [facility] Basophil percentageOrdered B y: Dina Olea on 06-25-2022 Basophils/100 WBC (Bld) 0.8 % 0-1 [facility] Bilirubin [Mass/Vol] 0.30 mg/dL 0.20-1.00 [facility] Comment on above: For patients on eltr ombopag therapy, use of Dimension Quail TBIL is not recommended. Chloride [Moles/Vol] 109 mmol/L 98-107 [facility] Eosinophils/100 WBC (Bld) 4.0 % 0-5 [facility] Glucose [Mass/Vol] 93 mg/dL 74-106 [facility] Neutrophils (Bld) [#/Vol] 2.5 10*3/uL 2.0-7.7 [facility] Neutrophils/100 WBC (Bld) 47.2 % 47-70 [facility] Potassium [Moles/Vol] 4.6 mmol/L 3.5-5.1 [facility] Protein [Mass/Vol] 6.3 g/dL 6.4-8.2 [facility] Sodium [Moles/Vol] 139 mmol/L 136-145 [facility] WBC (Bld) [#/Vol] 5.3 10*3/uL 4.4-11.0 [facility] Blood erythrocytes count (nu mber/volume)Ordered By: Dina Olea on 06-25-2022 RBC (Bld) [#/Vol] 4.03 10*6/uL 4.2-5.4 [facility] Blood hemoglobin measurement (mass/volume)Ordered By: Dina Olea on 06-25-2022 Hemoglobin (Bld) [Mass/Vol] 12.4 g/dL 12.0-15.0 [facility] Blood lymphocytes/100 leukoc ytesOrdered By: Dina Olea on 06-25-2022 Lymphocytes/100 WBC (Bld) 37.1 % 19-41 [facility] Blood monocytes/100 leukocyt esOrdered By: Dina Olea on 06-25-2022 Monocytes/100 WBC (Bld) 10.3 % 0-10 [facility] Blood platelet mean volumeOr dered By: Dina Olea on 06-25-2022 Platelet mean volume (Bld) [Entitic vol] 11.1 fL 6.2-12.0 [facility] Determination of erythrocyte mean corpuscular volume (MCV)Ordered By: Dina Olea on 06-25-2022 MCV (RBC) [Entitic vol] 98.0 fL 81-99 [facility] Hematocrit Auto (Bld) [Volum e fraction]Ordered By: Dina Olea on 06-25-2022 Hematocrit (Bld) [Volume fraction] 39.5 % 37-47 [facility] Laboratory - Chemistry and C hemistry - challengeOrdered By: [facility] Lefty on 06-25-2022 ALP [Catalytic activity/Vol] 107 U/L 45-117 [facility] ALT [Catalytic activity/Vol] 27 U/L 13-56 [facility] CO2 [Moles/Vol] 29.0 mmol/L 21.0-32.0 [facility] Globulin (S) [Mass/Vol] 3.1 g/dL 2.2-4.2 [facility] Urea nitrogen/Creatinine [Mass ratio] 22.9 mg/mg 10-20 [facility] Laboratory - Hematology and Cell countsOrdered By: Dina Olea on 06-25-2022 Erythrocyte distribution width (RBC) [Entitic vol] 51.8 fL 35.1-43.9 [facility] Erythrocyte distribution width (RBC) [Ratio] 14.4 % 11.6-14.6 [facility] Immature granulocytes/100 WBC (Bld) 0.600 % 0.0-0.9 [facility] Comment on above: IG% - Immature Granu locytes (promyelocytes, myelocytes and metamyelocytes) > 1% indicates that a LEFT SHIFT is Present. MCH (RBC) [Entitic mass] 30.8 pg 27.0-32.0 [facility] Nucleated RBC/100 WBC (Bld) [Ratio] 0 % 0-5 [facility] MCHC Auto (RBC) [Mass/Vol]Or dered By: Dina Olea on 06-25-2022 MCHC (RBC) [Mass/Vol] 31.4 g/dL 32-36 [facility] No Panel InformationOrdered By: Dina Olea on 06-25-2022 Estimated GFR (MDRD) Amer 111 mL/min >60 [facility] Comment on above: GFR Calc Estimated GFR (MDRD) Non-Af Amer 92 mL/min >60 [facility] Comment on above: Non- GFR Calc Platelets bldOrdered By: Violet Olea on 06-25-2022 Platelets (Bld) [#/Vol] 226 10*3/uL 150-450 [facility] Serum or plasma albumin enmanuel urement (mass/volume)Ordered By: Dina Olea on 06-25-2022 Albumin [Mass/Vol] 3.2 g/dL 3.2-5.0 [facility] Serum or plasma albumin/glob ulin mass ratioOrdered By: Dina Olea on 06-25-2022 Albumin/Globulin [Mass ratio] 1.0 {ratio} 0.9-2.4 [facility] Serum or plasma calcium enmanuel urement (mass/volume)Ordered By: Dina Olea on 06-25-2022 Calcium [Mass/Vol] 9.4 mg/dL 8.5-10.1 [facility] Serum or plasma creatinine m easurement (mass/volume)Ordered By: Dina Olea on 06-25-2022 Creatinine [Mass/Vol] 0.66 mg/dL 0.55-1.02 [facility] Comment on above: The validity of the calculated GFR & GFRAA in patients over 70 years has not been determined. Clinical correlation is essential. Serum or plasma urea nitroge n measurement (mass/volume)Ordered By: Dina Olea on 06-25-2022 Urea nitrogen [Mass/Vol] 15 mg/dL 7-18 [facility] Thin prep Papanicolaou smear with manual screeningOrdered By: Dina Olea on 06-25-2022 Thin prep Papanicolaou smear with manual screening 24 U/L 15-37 [facility] Thin prep Papanicolaou smear with manual screening 1 5-15 [facility] SURGICAL PATHOLOGYon 023 Case Report Surgical Pathology R eport Case: [id number] Authorizing Provider: Owen Rivas MD Collected: 05/10/2022 10:16 AM Ordering Location: Ambulatory Surgery Received: 05/10/2022 12:55 PM Pathologist: Ino Mccain MD Specimen: RECTAL BIOPSY, Rectal mass bxs [facility] Diagnosis Comment The biopsy shows col onic mucosa with mucosal prolapse, ulceration and ischemic type changes. There is no evidence of dysplasia or malignancy. Multiple deeper tissue levels have been examined. The presence of a mass lesion is noted. 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 Clinical correlation is recommended. [facility] FINAL DIAGNOSIS A. Rectum, mass, bio psies: - Negative for malignancy; see comment - Fragments of colonic mucosa with ischemic change and ulceration. [facility] Gross Description A. RECTAL BIOPSY Received in formalin are multiple pieces of rendon, soft tissue aggregating to 1.6 x 0.3 x 0.3 cm. Totally submitted in one cassette. Gross examination performed at [facility], [address] [place] [address] FFS 05/10/2022 11:49 PM [facility] Performing Lab Diagnostic interpret ation performed at [facility], [address] [place] [address] CLIA# [id number] Data Analyst Report Writer: Cipriano Falcon M.D. [facility] COLONOSCOPY SCREENINGon [facility] UA DIP, URINE (POC)on 2022 BILIRUBIN UA (POCT) Negative Negative [facility] CLARITY UA (POCT) Clear [facility] COLOR UA (POCT) Yellow [facility] GLUCOSE UA (POCT) Negative Negative mg/dL [facility] HEMOGLOBIN/BLOOD UA (POCT) Negative Negative [facility] KETONE UA (POCT) Negative Negative mg/dL [facility] LEUKOCYTES UA (POCT) Small Abnormal Negative [facility] NITRITE UA (POCT) Negative [facility] PH UA (POCT) 7.0 4.5 - 8.0 [facility] Protein Ql (U) Negative Negative mg/dL [facility] SPECIFIC GRAVITY UA (POCT) 1.010 1.005 - 1.030 [facility] UROBILINOGEN UA (POCT) 0.2 E.U./dL Normal E.U./dL [facility] UA DIP, URINE (POC)on 2022 BILIRUBIN UA (POCT) Negative Negative [facility] CLARITY UA (POCT) Clear [facility] COLOR UA (POCT) Yellow [facility] GLUCOSE UA (POCT) Negative Negative mg/dL [facility] HEMOGLOBIN/BLOOD UA (POCT) Trace-intact Abnormal Negative [facility] KETONE UA (POCT) Negative Negative mg/dL [facility] LEUKOCYTES UA (POCT) Negative Negative [facility] NITRITE UA (POCT) Negative Negative [facility] PH UA (POCT) 7.0 4.5 - 8.0 [facility] Protein Ql (U) Negative Negative mg/dL [facility] SPECIFIC GRAVITY UA (POCT) 1.010 1.005 - 1.030 [facility] UROBILINOGEN UA (POCT) 0.2 E.U./dL Normal E.U./dL [facility] Absolute lymphocyte countOrd ered By: Dr. Olea on 03-26-2022 Lymphocytes Auto (Unsp spec) [#/Vol] 1.54 10*3/uL 0.83-4.51 [facility] Basophil percentageOrdered B y: Dr. Olea on 03-26-2022 Basophils/100 WBC (Bld) 0.3 % 0-1 [facility] Bilirubin [Mass/Vol] 0.50 mg/dL 0.20-1.00 [facility] Comment on above: For patients on eltr ombopag therapy, use of Dimension Quail TBIL is not recommended. Chloride [Moles/Vol] 101 mmol/L 98-107 [facility] Eosinophils/100 WBC (Bld) 2.1 % 0-5 [facility] Glucose [Mass/Vol] 93 mg/dL 74-106 [facility] Neutrophils (Bld) [#/Vol] 3.4 10*3/uL 2.0-7.7 [facility] Neutrophils/100 WBC (Bld) 59.2 % 47-70 [facility] Potassium [Moles/Vol] 4.6 mmol/L 3.5-5.1 [facility] Protein [Mass/Vol] 6.6 g/dL 6.4-8.2 [facility] Sodium [Moles/Vol] 136 mmol/L 136-145 [facility] WBC (Bld) [#/Vol] 5.7 10*3/uL 4.4-11.0 [facility] Blood erythrocytes count (nu mber/volume)Ordered By: Dr. Olea on 03-26-2022 RBC (Bld) [#/Vol] 4.17 10*6/uL 4.2-5.4 [facility] Blood hemoglobin measurement (mass/volume)Ordered By: Dr. Olea on 03-26-2022 Hemoglobin (Bld) [Mass/Vol] 12.9 g/dL 12.0-15.0 [facility] Blood lymphocytes/100 leukoc ytesOrdered By: Dr. Olea on 03-26-2022 Lymphocytes/100 WBC (Bld) 26.9 % 19-41 [facility] Blood monocytes/100 leukocyt esOrdered By: Dr. Olea on 03-26-2022 Monocytes/100 WBC (Bld) 11.2 % 0-10 [facility] Blood platelet mean volumeOr dered By: Dr. Olea on 03-26-2022 Platelet mean volume (Bld) [Entitic vol] 11.0 fL 6.2-12.0 [facility] Determination of erythrocyte mean corpuscular volume (MCV)Ordered By: Dr. Olea on 03-26-2022 MCV (RBC) [Entitic vol] 96.6 fL 81-99 [facility] Hematocrit Auto (Bld) [Volum e fraction]Ordered By: Dr. Olea on 03-26-2022 Hematocrit (Bld) [Volume fraction] 40.3 % 37-47 [facility] Laboratory - Chemistry and C hemistry - challengeOrdered By: Dr. Olea on 03-26-2022 ALP [Catalytic activity/Vol] 111 U/L 45-117 [facility] ALT [Catalytic activity/Vol] 27 U/L 13-56 [facility] CO2 [Moles/Vol] 31.0 mmol/L 21.0-32.0 [facility] Globulin (S) [Mass/Vol] 3.3 g/dL 2.2-4.2 [facility] Urea nitrogen/Creatinine [Mass ratio] 19.7 mg/mg 10-20 [facility] Laboratory - Hematology and Cell countsOrdered By: Dr. Olea on 03-26-2022 Erythrocyte distribution width (RBC) [Entitic vol] 46.2 fL 35.1-43.9 [facility] Erythrocyte distribution width (RBC) [Ratio] 13.2 % 11.6-14.6 [facility] Immature granulocytes/100 WBC (Bld) 0.300 % 0.0-0.9 [facility] Comment on above: IG% - Immature Granu locytes (promyelocytes, myelocytes and metamyelocytes) > 1% indicates that a LEFT SHIFT is Present. MCH (RBC) [Entitic mass] 30.9 pg 27.0-32.0 [facility] Nucleated RBC/100 WBC (Bld) [Ratio] 0.3 % 0-5 [facility] MCHC Auto (RBC) [Mass/Vol]Or dered By: Dr. Olea on 03-26-2022 MCHC (RBC) [Mass/Vol] 32.0 g/dL 32-36 [facility] No Panel InformationOrdered By: Dr. Olea on 03-26-2022 Estimated GFR (MDRD) Amer 110 mL/min >60 [facility] Comment on above: GFR Calc Estimated GFR (MDRD) Non-Af Amer 91 mL/min >60 [facility] Comment on above: Non- GFR Calc Platelets bldOrdered By: Dr. Olea on 03-26-2022 Platelets (Bld) [#/Vol] 197 10*3/uL 150-450 [facility] Serum or plasma albumin enmanuel urement (mass/volume)Ordered By: Dr. Olea on 03-26-2022 Albumin [Mass/Vol] 3.3 g/dL 3.2-5.0 [facility] Serum or plasma albumin/glob ulin mass ratioOrdered By: Dr. Olea on 03-26-2022 Albumin/Globulin [Mass ratio] 1.0 {ratio} 0.9-2.4 [facility] Serum or plasma calcium enmanuel urement (mass/volume)Ordered By: Dr. Olea on 03-26-2022 Calcium [Mass/Vol] 9.2 mg/dL 8.5-10.1 [facility] Serum or plasma creatinine m easurement (mass/volume)Ordered By: Dr. Olae on 03-26-2022 Creatinine [Mass/Vol] 0.66 mg/dL 0.55-1.02 [facility] Comment on above: The validity of the calculated GFR & GFRAA in patients over 70 years has not been determined. Clinical correlation is essential. Serum or plasma urea nitroge n measurement (mass/volume)Ordered By: Dr. Olea on 03-26-2022 Urea nitrogen [Mass/Vol] 13 mg/dL 7-18 [facility] Thin prep Papanicolaou smear with manual screeningOrdered By: Dr. Olea on 03-26-2022 Thin prep Papanicolaou smear with manual screening 23 U/L 15-37 [facility] Thin prep Papanicolaou smear with manual screening 4 5-15 [facility] XR DEFECOGRAPHYon 03-08-2022 [facility] URINE CULTUREon 03-07-2022 Bacteria identified Cx Nom (U) 10,000 -<50,000 CFU/ml Mixed microbiota Abnormal [facility] Influenza virus A and B RNA and SARS-CoV-2 (COVID-19) N gene panel PRABHA+probe (Resp)on 03-06-2022 FLUAV RNA PRABHA+probe Ql (Unsp spec) Negative Negative for Influenza A by RT-PCR [facility] FLUBV RNA PRABHA+probe Ql (Unsp spec) Negative Negative for Influenza B by RT-PCR [facility] SARS-CoV-2 (COVID-19) RNA PRABHA+probe Ql (Resp) SARS-CoV-2 (Agent of COVID-19) Not Detected by RT-PCR or equivalent method. Not Detected [facility] UA DIP, URINE (POC)on 2022 BILIRUBIN UA (POCT) Negative Negative [facility] CLARITY UA (POCT) Clear [facility] COLOR UA (POCT) Yellow [facility] GLUCOSE UA (POCT) Negative Negative mg/dL [facility] HEMOGLOBIN/BLOOD UA (POCT) Negative Negative [facility] KETONE UA (POCT) Negative Negative mg/dL [facility] LEUKOCYTES UA (POCT) Negative Negative [facility] NITRITE UA (POCT) Negative Negative [facility] PH UA (POCT) 7.5 4.5 - 8.0 [facility] Protein Ql (U) Negative Negative mg/dL [facility] SPECIFIC GRAVITY UA (POCT) 1.010 1.005 - 1.030 [facility] UROBILINOGEN UA (POCT) 0.2 E.U./dL Normal E.U./dL [facility] UA DIP, URINE (POC)on 2021 BILIRUBIN UA (POCT) Negative Negative [facility] CLARITY UA (POCT) Clear [facility] COLOR UA (POCT) Light yellow [facility] GLUCOSE UA (POCT) Negative Negative mg/dL [facility] HEMOGLOBIN/BLOOD UA (POCT) Trace-intact Abnormal Negative [facility] KETONE UA (POCT) Negative Negative mg/dL [facility] LEUKOCYTES UA (POCT) Negative Negative [facility] NITRITE UA (POCT) Negative Negative [facility] PH UA (POCT) 7.0 4.5 - 8.0 [facility] Protein Ql (U) Negative Negative mg/dL [facility] SPECIFIC GRAVITY UA (POCT) 1.010 1.005 - 1.030 [facility] UROBILINOGEN UA (POCT) 0.2 E.U./dL Normal E.U./dL [facility] UA DIP, URINE (POC)on 2021 BILIRUBIN UA (POCT) Negative Negative [facility] CLARITY UA (POCT) [facility] COLOR UA (POCT) Yellow [facility] GLUCOSE UA (POCT) Negative Negative mg/dL [facility] HEMOGLOBIN/BLOOD UA (POCT) Negative Negative [facility] KETONE UA (POCT) Negative Negative mg/dL [facility] LEUKOCYTES UA (POCT) Trace Abnormal Negative [facility] NITRITE UA (POCT) Negative Negative [facility] PH UA (POCT) 7.0 4.5 - 8.0 [facility] Protein Ql (U) Negative Negative mg/dL [facility] SPECIFIC GRAVITY UA (POCT) 1.010 1.005 - 1.030 [facility] UROBILINOGEN UA (POCT) 0.2 E.U./dL Normal E.U./dL [facility] UA DIP, URINE (POC)on 2021 BILIRUBIN UA (POCT) Negative Negative [facility] CLARITY UA (POCT) Clear [facility] COLOR UA (POCT) Yellow [facility] GLUCOSE UA (POCT) Negative Negative mg/dL [facility] HEMOGLOBIN/BLOOD UA (POCT) Negative Negative [facility] KETONE UA (POCT) Negative Negative mg/dL [facility] LEUKOCYTES UA (POCT) Trace Abnormal Negative [facility] NITRITE UA (POCT) Negative Negative [facility] PH UA (POCT) 6.5 4.5 - 8.0 [facility] Protein Ql (U) Negative Negative mg/dL [facility] SPECIFIC GRAVITY UA (POCT) 1.010 1.005 - 1.030 [facility] UROBILINOGEN UA (POCT) 0.2 E.U./dL Normal E.U./dL [facility] UA DIP, URINE (POC)on 2021 BILIRUBIN UA (POCT) Negative Negative [facility] CLARITY UA (POCT) Clear [facility] COLOR UA (POCT) Yellow [facility] GLUCOSE UA (POCT) Negative Negative mg/dL [facility] HEMOGLOBIN/BLOOD UA (POCT) Negative Negative [facility] KETONE UA (POCT) Negative Negative mg/dL [facility] LEUKOCYTES UA (POCT) Negative Negative [facility] NITRITE UA (POCT) Negative Negative [facility] PH UA (POCT) 7.5 4.5 - 8.0 [facility] Protein Ql (U) Negative Negative mg/dL [facility] SPECIFIC GRAVITY UA (POCT) 1.010 1.005 - 1.030 [facility] UROBILINOGEN UA (POCT) 0.2 E.U./dL Normal E.U./dL [facility] Absolute lymphocyte countOrd ered By: Dr. Olea on 01-01-2022 Lymphocytes Auto (Unsp spec) [#/Vol] 1.95 10*3/uL 0.83-4.51 [facility] Basophil percentageOrdered B y: Dr. Olea on 01-01-2022 Basophils/100 WBC (Bld) 0.7 % 0-1 [facility] Bilirubin [Mass/Vol] 0.30 mg/dL 0.20-1.00 [facility] Comment on above: For patients on eltr ombopag therapy, use of Dimension Quail TBIL is not recommended. Chloride [Moles/Vol] 105 mmol/L 98-107 [facility] Eosinophils/100 WBC (Bld) 6.7 % 0-5 [facility] Glucose [Mass/Vol] 99 mg/dL 74-106 [facility] Neutrophils (Bld) [#/Vol] 2.8 10*3/uL 2.0-7.7 [facility] Neutrophils/100 WBC (Bld) 46.1 % 47-70 [facility] Potassium [Moles/Vol] 4.4 mmol/L 3.5-5.1 [facility] Protein [Mass/Vol] 6.6 g/dL 6.4-8.2 [facility] Sodium [Moles/Vol] 140 mmol/L 136-145 [facility] WBC (Bld) [#/Vol] 6.0 10*3/uL 4.4-11.0 [facility] Blood erythrocytes count (nu mber/volume)Ordered By: Dr. Olea on 01-01-2022 RBC (Bld) [#/Vol] 4.07 10*6/uL 4.2-5.4 [facility] Blood hemoglobin measurement (mass/volume)Ordered By: Dr. Olea on 01-01-2022 Hemoglobin (Bld) [Mass/Vol] 12.9 g/dL 12.0-15.0 [facility] Blood lymphocytes/100 leukoc ytesOrdered By: Dr. Olea on 01-01-2022 Lymphocytes/100 WBC (Bld) 32.7 % 19-41 [facility] Blood monocytes/100 leukocyt esOrdered By: Dr. Olea on 01-01-2022 Monocytes/100 WBC (Bld) 13.1 % 0-10 [facility] Blood platelet mean volumeOr dered By: Dr. Olea on 01-01-2022 Platelet mean volume (Bld) [Entitic vol] 10.7 fL 6.2-12.0 [facility] Determination of erythrocyte mean corpuscular volume (MCV)Ordered By: Dr. Olea on 01-01-2022 MCV (RBC) [Entitic vol] 96.6 fL 81-99 [facility] Hematocrit Auto (Bld) [Volum e fraction]Ordered By: Dr. Olea on 01-01-2022 Hematocrit (Bld) [Volume fraction] 39.3 % 37-47 [facility] Laboratory - Chemistry and C hemistry - challengeOrdered By: Dr. Olea on 01-01-2022 ALP [Catalytic activity/Vol] 122 U/L 45-117 [facility] ALT [Catalytic activity/Vol] 25 U/L 13-56 [facility] CO2 [Moles/Vol] 31.0 mmol/L 21.0-32.0 [facility] Globulin (S) [Mass/Vol] 3.3 g/dL 2.2-4.2 [facility] Urea nitrogen/Creatinine [Mass ratio] 23.7 mg/mg 10-20 [facility] Laboratory - Hematology and Cell countsOrdered By: Dr. Olea on 01-01-2022 Erythrocyte distribution width (RBC) [Entitic vol] 50.4 fL 35.1-43.9 [facility] Erythrocyte distribution width (RBC) [Ratio] 14.6 % 11.6-14.6 [facility] Immature granulocytes/100 WBC (Bld) 0.700 % 0.0-0.9 [facility] Comment on above: IG% - Immature Granu locytes (promyelocytes, myelocytes and metamyelocytes) > 1% indicates that a LEFT SHIFT is Present. MCH (RBC) [Entitic mass] 31.7 pg 27.0-32.0 [facility] Nucleated RBC/100 WBC (Bld) [Ratio] 0 % 0-5 [facility] MCHC Auto (RBC) [Mass/Vol]Or dered By: Dr. Olea on 01-01-2022 MCHC (RBC) [Mass/Vol] 32.8 g/dL 32-36 [facility] No Panel InformationOrdered By: Dr. Olea on 01-01-2022 Estimated GFR (MDRD) Amer 116 mL/min >60 [facility] Comment on above: GFR Calc Estimated GFR (MDRD) Non-Af Amer 96 mL/min >60 [facility] Comment on above: Non- GFR Calc Platelets bldOrdered By: Dr. Olea on 01-01-2022 Platelets (Bld) [#/Vol] 265 10*3/uL 150-450 [facility] Serum or plasma albumin enmanuel urement (mass/volume)Ordered By: Dr. Olea on 01-01-2022 Albumin [Mass/Vol] 3.3 g/dL 3.2-5.0 [facility] Serum or plasma albumin/glob ulin mass ratioOrdered By: Dr. Olea on 01-01-2022 Albumin/Globulin [Mass ratio] 1.0 {ratio} 0.9-2.4 [facility] Serum or plasma calcium enmanuel urement (mass/volume)Ordered By: Dr. Olea on 01-01-2022 Calcium [Mass/Vol] 9.3 mg/dL 8.5-10.1 [facility] Serum or plasma creatinine m easurement (mass/volume)Ordered By: Dr. Olea on 01-01-2022 Creatinine [Mass/Vol] 0.63 mg/dL 0.55-1.02 [facility] Comment on above: The validity of the calculated GFR & GFRAA in patients over 70 years has not been determined. Clinical correlation is essential. Serum or plasma urea nitroge n measurement (mass/volume)Ordered By: Dr. Olea on 01-01-2022 Urea nitrogen [Mass/Vol] 15 mg/dL 7-18 [facility] Thin prep Papanicolaou smear with manual screeningOrdered By: Dr. Olae on 01-01-2022 Thin prep Papanicolaou smear with manual screening 22 U/L 15-37 [facility] Thin prep Papanicolaou smear with manual screening 4 5-15 [facility] No Panel Informationon 12-22 [facility] Absolute lymphocyte counton 10-30-2021 Lymphocytes Auto (Unsp spec) [#/Vol] 1.44 10*3/uL 0.83-4.51 [facility] Work Phone: Basophil percentageon 2021 Basophils/100 WBC (Bld) 0.4 % 0-1 [facility] Work Phone: Bilirubin [Mass/Vol] 0.30 mg/dL 0.20-1.00 [facility] Work Phone: Comment on above: For patients on eltr ombopag therapy, use of Dimension Quail TBIL is not recommended. Chloride [Moles/Vol] 103 mmol/L 98-107 [facility] Work Phone: Eosinophils/100 WBC (Bld) 2.1 % 0-5 [facility] Work Phone: Glucose [Mass/Vol] 78 mg/dL 74-106 [facility] Work Phone: Neutrophils (Bld) [#/Vol] 2.6 10*3/uL 2.0-7.7 [facility] Work Phone: Neutrophils/100 WBC (Bld) 55.4 % 47-70 [facility] Work Phone: Potassium [Moles/Vol] 4.4 mmol/L 3.5-5.1 [facility] Work Phone: Protein [Mass/Vol] 6.3 g/dL 6.4-8.2 [facility] Work Phone: Sodium [Moles/Vol] 141 mmol/L 136-145 [facility] Work Phone: WBC (Bld) [#/Vol] 4.7 10*3/uL 4.4-11.0 [facility] Work Phone: Blood erythrocytes count (nu mber/volume)on 10-30-2021 RBC (Bld) [#/Vol] 4.07 10*6/uL 4.2-5.4 [facility] Work Phone: Blood hemoglobin measurement (mass/volume)on 10-30-2021 Hemoglobin (Bld) [Mass/Vol] 12.4 g/dL 12.0-15.0 [facility] Work Phone: Blood lymphocytes/100 leukoc yteson 10-30-2021 Lymphocytes/100 WBC (Bld) 30.8 % 19-41 [facility] Work Phone: Blood monocytes/100 leukocyt eson 10-30-2021 Monocytes/100 WBC (Bld) 10.9 % 0-10 [facility] Work Phone: Blood platelet mean volumeon 10-30-2021 Platelet mean volume (Bld) [Entitic vol] 11.6 fL 6.2-12.0 [facility] Work Phone: Determination of erythrocyte mean corpuscular volume (MCV)on 10-30-2021 MCV (RBC) [Entitic vol] 95.3 fL 81-99 [facility] Work Phone: Hematocrit Auto (Bld) [Volum e fraction]on 10-30-2021 Hematocrit (Bld) [Volume fraction] 38.8 % 37-47 [facility] Work Phone: Laboratory - Chemistry and C hemistry - challengeon 10-30-2021 ALP [Catalytic activity/Vol] 94 U/L 45-117 [facility] Work Phone: ALT [Catalytic activity/Vol] 28 U/L 13-56 [facility] Work Phone: [phone] CO2 [Moles/Vol] 33.0 mmol/L 21.0-32.0 [facility] Work Phone: Globulin (S) [Mass/Vol] 3.2 g/dL 2.2-4.2 [facility] Work Phone: Urea nitrogen/Creatinine [Mass ratio] 17.7 mg/mg 10-20 [facility] Work Phone: Laboratory - Hematology and Cell countson 10-30-2021 Erythrocyte distribution width (RBC) [Entitic vol] 46.9 fL 35.1-43.9 [facility] Work Phone: [phone] Erythrocyte distribution width (RBC) [Ratio] 13.4 % 11.6-14.6 [facility] Work Phone: [phone] Immature granulocytes/100 WBC (Bld) 0.400 % 0.0-0.9 [facility] Work Phone: [phone] Comment on above: IG% - Immature Granu locytes (promyelocytes, myelocytes and metamyelocytes) > 1% indicates that a LEFT SHIFT is Present. MCH (RBC) [Entitic mass] 30.5 pg 27.0-32.0 [facility] Work Phone: [phone] Nucleated RBC/100 WBC (Bld) [Ratio] 0 % 0-5 [facility] Work Phone: [phone] MCHC Auto (RBC) [Mass/Vol]on 10-30-2021 MCHC (RBC) [Mass/Vol] 32.0 g/dL 32-36 [facility] Work Phone: No Panel Informationon 10-30 Estimated GFR (MDRD) Amer 118 mL/min >60 [facility] Work Phone: [phone] Comment on above: GFR Calc Estimated GFR (MDRD) Non-Af Amer 98 mL/min >60 [facility] Work Phone: Comment on above: Non- GFR Calc Platelets bldon 10-30-2021 Platelets (Bld) [#/Vol] 191 10*3/uL 150-450 [facility] Work Phone: [phone] Serum or plasma albumin enmanuel urement (mass/volume)on 10-30-2021 Albumin [Mass/Vol] 3.1 g/dL 3.2-5.0 [facility] Work Phone: [phone] Serum or plasma albumin/glob ulin mass ratioon 10-30-2021 Albumin/Globulin [Mass ratio] 1.0 {ratio} 0.9-2.4 [facility] Work Phone: [phone] Serum or plasma calcium enmanuel urement (mass/volume)on 10-30-2021 Calcium [Mass/Vol] 8.7 mg/dL 8.5-10.1 [facility] Work Phone: Serum or plasma creatinine m easurement (mass/volume)on 10-30-2021 Creatinine [Mass/Vol] 0.62 mg/dL 0.55-1.02 [facility] Work Phone: Comment on above: The validity of the calculated GFR & GFRAA in patients over 70 years has not been determined. Clinical correlation is essential. Serum or plasma urea nitroge n measurement (mass/volume)on 10-30-2021 Urea nitrogen [Mass/Vol] 11 mg/dL 7-18 [facility] Work Phone: Thin prep Papanicolaou smear with manual screeningon 10-30-2021 Thin prep Papanicolaou smear with manual screening 25 U/L 15-37 [facility] Work Phone: Thin prep Papanicolaou smear with manual screening 5 5-15 [facility] Work Phone: C. DIFFICILE PCRon C. difficile toxin genes PRABHA+probe Ql (Stl) Negative Negative for C. difficile toxin by PCR [facility] Gastrointestinal pathogens i dentified PRABHA+probe Nom (Stl)on 10-29-2021 Campylobacter sp DNA PRABHA+probe Nom (Unsp spec) Not detected Not Detected [facility] Salmonella sp DNA PRABHA+probe Ql (Unsp spec) Not detected Not Detected [facility] Shiga toxin stx gene PRABHA+probe Nom (Unsp spec) Not detected Not Detected [facility] Shigella sp DNA PRABHA+probe Ql (Unsp spec) Not detected Not Detected [facility] OCCULT BLD EXAM-DIAGon 10-29 Occult Blood Diagnostic Negative Negative [facility] Influenza virus A and B RNA and SARS-CoV-2 (COVID-19) N gene panel PRABHA+probe (Resp)on 10-28-2021 FLUAV RNA PRABHA+probe Ql (Unsp spec) Negative Negative for Influenza A by RT-PCR [facility] FLUBV RNA PRABHA+probe Ql (Unsp spec) Negative Negative for Influenza B by RT-PCR [facility] SARS-CoV-2 (COVID-19) RNA PRABHA+probe Ql (Resp) SARS-CoV-2 (Agent of COVID-19) Not Detected by RT-PCR or equivalent method. Not Detected [facility] No Panel Informationon 08-02 [facility] Absolute lymphocyte counton 08-01-2021 Lymphocytes Auto (Unsp spec) [#/Vol] 1.74 10*3/uL 0.83-4.51 [facility] Work Phone: Basophil percentageon 2021 Basophils/100 WBC (Bld) 0.6 % 0-1 [facility] Work Phone: Bilirubin [Mass/Vol] 0.30 mg/dL 0.20-1.00 [facility] Work Phone: Comment on above: For patients on eltr ombopag therapy, use of Dimension Quail TBIL is not recommended. Chloride [Moles/Vol] 109 mmol/L 98-107 [facility] Work Phone: Eosinophils/100 WBC (Bld) 2.4 % 0-5 [facility] Work Phone: Glucose [Mass/Vol] 91 mg/dL 74-106 [facility] Work Phone: Neutrophils (Bld) [#/Vol] 2.9 10*3/uL 2.0-7.7 [facility] Work Phone: Neutrophils/100 WBC (Bld) 54.8 % 47-70 [facility] Work Phone: Potassium [Moles/Vol] 4.3 mmol/L 3.5-5.1 [facility] Work Phone: Protein [Mass/Vol] 6.5 g/dL 6.4-8.2 [facility] Work Phone: Sodium [Moles/Vol] 142 mmol/L 136-145 [facility] Work Phone: WBC (Bld) [#/Vol] 5.4 10*3/uL 4.4-11.0 [facility] Work Phone: Blood erythrocytes count (nu mber/volume)on 08-01-2021 RBC (Bld) [#/Vol] 4.08 10*6/uL 4.2-5.4 [facility] Work Phone: Blood hemoglobin measurement (mass/volume)on 08-01-2021 Hemoglobin (Bld) [Mass/Vol] 12.7 g/dL 12.0-15.0 [facility] Work Phone: [phone] Blood lymphocytes/100 leukoc yteson 08-01-2021 Lymphocytes/100 WBC (Bld) 32.5 % 19-41 [facility] Work Phone: [phone] Blood monocytes/100 leukocyt eson 08-01-2021 Monocytes/100 WBC (Bld) 9.3 % 0-10 [facility] Work Phone: [phone] Blood platelet mean volumeon 08-01-2021 Platelet mean volume (Bld) [Entitic vol] 10.7 fL 6.2-12.0 [facility] Work Phone: [phone] Determination of erythrocyte mean corpuscular volume (MCV)on 08-01-2021 MCV (RBC) [Entitic vol] 98.0 fL 81-99 [facility] Work Phone: [phone] Hematocrit Auto (Bld) [Volum e fraction]on 08-01-2021 Hematocrit (Bld) [Volume fraction] 40.0 % 37-47 [facility] Work Phone: Laboratory - Chemistry and C hemistry - challengeon 08-01-2021 ALP [Catalytic activity/Vol] 119 U/L 45-117 [facility] Work Phone: [phone] ALT [Catalytic activity/Vol] 31 U/L 13-56 [facility] Work Phone: [phone] CO2 [Moles/Vol] 30.0 mmol/L 21.0-32.0 [facility] Work Phone: [phone] Globulin (S) [Mass/Vol] 3.3 g/dL 2.2-4.2 [facility] Work Phone: [phone] Urea nitrogen/Creatinine [Mass ratio] 29.7 mg/mg 10-20 [facility] Work Phone: [phone] Laboratory - Hematology and Cell countson 08-01-2021 Erythrocyte distribution width (RBC) [Entitic vol] 50.7 fL 35.1-43.9 [facility] Work Phone: [phone] Erythrocyte distribution width (RBC) [Ratio] 14.3 % 11.6-14.6 [facility] Work Phone: [phone] Immature granulocytes/100 WBC (Bld) 0.400 % 0.0-0.9 [facility] Work Phone: [phone] Comment on above: IG% - Immature Granu locytes (promyelocytes, myelocytes and metamyelocytes) > 1% indicates that a LEFT SHIFT is Present. MCH (RBC) [Entitic mass] 31.1 pg 27.0-32.0 [facility] Work Phone: [phone] Nucleated RBC/100 WBC (Bld) [Ratio] 0 % 0-5 [facility] Work Phone: [phone] MCHC Auto (RBC) [Mass/Vol]on 08-01-2021 MCHC (RBC) [Mass/Vol] 31.8 g/dL 32-36 [facility] Work Phone: [phone] No Panel Informationon 08-01 Estimated GFR (MDRD) Amer 130 mL/min >60 [facility] Work Phone: [phone] Comment on above: GFR Calc Estimated GFR (MDRD) Non-Af Amer 107 mL/min >60 [facility] Work Phone: [phone] Comment on above: Non- GFR Calc Platelets bldon 08-01-2021 Platelets (Bld) [#/Vol] 218 10*3/uL 150-450 [facility] Work Phone: [phone] Serum or plasma albumin enmanuel urement (mass/volume)on 08-01-2021 Albumin [Mass/Vol] 3.2 g/dL 3.2-5.0 [facility] Work Phone: [phone] Serum or plasma albumin/glob ulin mass ratioon 08-01-2021 Albumin/Globulin [Mass ratio] 1.0 {ratio} 0.9-2.4 [facility] Work Phone: Serum or plasma calcium enmanuel urement (mass/volume)on 08-01-2021 Calcium [Mass/Vol] 8.9 mg/dL 8.5-10.1 [facility] Work Phone: Serum or plasma creatinine m easurement (mass/volume)on 08-01-2021 Creatinine [Mass/Vol] 0.57 mg/dL 0.55-1.02 [facility] Work Phone: Comment on above: The validity of the calculated GFR & GFRAA in patients over 70 years has not been determined. Clinical correlation is essential. Serum or plasma urea nitroge n measurement (mass/volume)on 08-01-2021 Urea nitrogen [Mass/Vol] 17 mg/dL 7-18 [facility] Work Phone: Thin prep Papanicolaou smear with manual screeningon 08-01-2021 Thin prep Papanicolaou smear with manual screening 26 U/L 15-37 [facility] Work Phone: Thin prep Papanicolaou smear with manual screening 3 5-15 [facility] Work Phone: UA DIP, URINE (POC)on 2021 BILIRUBIN UA (POCT) Negative Negative [facility] CLARITY UA (POCT) Clear [facility] COLOR UA (POCT) Yellow [facility] GLUCOSE UA (POCT) Negative Negative mg/dL [facility] HEMOGLOBIN/BLOOD UA (POCT) Negative Negative [facility] KETONE UA (POCT) Negative Negative mg/dL [facility] LEUKOCYTES UA (POCT) Negative Negative [facility] NITRITE UA (POCT) Negative Negative [facility] PH UA (POCT) 7.0 4.5 - 8.0 [facility] Protein Ql (U) Negative Negative mg/dL [facility] SPECIFIC GRAVITY UA (POCT) 1.010 1.005 - 1.030 [facility] UROBILINOGEN UA (POCT) 0.2 E.U./dL Normal E.U./dL [facility] XR FOOT GENERAL 3V AP/LAT/OB [facility] - left AP and Latera l and obliqueon 07-20-2021 * * *Final Report* * * DATE OF EXAM: Jul 20 2021 1:22PM WOX [id number] - XR FOOT 3V AP/LAT/OBL LT / PROCEDURE REASON: multiple diagnoses * * * * Physician Interpretation * * * * Indication: Left foot pain and swelling Comparison: None AP, lateral and oblique views of the left foot are obtained. There is no acute fracture or dislocation. No destructive osseous lesion. There is extension of the left second metatarsophalangeal joints and flexion of the PIP joint of the left second toe. Joint spaces are maintained. Impression: 1. No acute fracture or dislocation. [employer] Operator: PSCJeovanny Transcribe Date/Time: Jul 20 2021 3:12P Dictated by : ESTRELLITA CHAVEZ MD This examination was interpreted and the report reviewed and electronically signed by: ESTRELLITA CHAVEZ MD on Jul 20 2021 3:16PM EST [facility]DO_NOT_U SE_DIVISION OF RADIOLOGY Provider, [facility] - 07/20/2021 * * *Final Report* * * DATE OF EXAM: Jul 20 2021 1:22PM WOX [id number] - XR FOOT 3V AP/LAT/OBL LT / PROCEDURE REASON: multiple diagnoses * * * * Physician Interpretation * * * * Indication: Left foot pain and swelling Comparison: None AP, lateral and oblique views of the left foot are obtained. There is no acute fracture or dislocation. No destructive osseous lesion. There is extension of the left second metatarsophalangeal joints and flexion of the PIP joint of the left second toe. Joint spaces are maintained. Impression: 1. No acute fracture or dislocation. Self [employer]elled [employer] Rol[employer] Operator: PSCB Transcribe Date/Time: Jul 20 2021 3:12P Dictated by : ESTRELLITA CHAVEZ MD This examination was interpreted and the report reviewed and electronically signed by: ESTRELLITA CHAVEZ MD on Jul 20 2021 3:16PM EST [facility] Radiology Study observation (narrative) [facility] XR Foot - left AP and Latera l and obliqueOrdered By: Ccf Provider on 07-20-2021 [facility] XR KNEE POST OP 3V AP/LAT/ME RCHANT BILATERALon 07-17-2021 [facility] No Panel Informationon 06-09 Radiology Study observation (narrative) [facility] UA DIP, URINE (POC)on 2021 BILIRUBIN UA (POCT) Negative Negative [facility] CLARITY UA (POCT) Clear [facility] COLOR UA (POCT) Yellow [facility] GLUCOSE UA (POCT) Negative Negative mg/dL [facility] HEMOGLOBIN/BLOOD UA (POCT) Trace-intact Abnormal Negative [facility] KETONE UA (POCT) Negative Negative mg/dL [facility] LEUKOCYTES UA (POCT) Trace Abnormal Negative [facility] NITRITE UA (POCT) Negative Negative [facility] PH UA (POCT) 7.5 4.5 - 8.0 [facility] Protein Ql (U) Negative Negative mg/dL [facility] SPECIFIC GRAVITY UA (POCT) 1.010 1.005 - 1.030 [facility] UROBILINOGEN UA (POCT) 0.2 E.U./dL Normal E.U./dL [facility] XR Ribs - left Views and [address] st PAon 06-09-2021 IMPRESSION: No acute radiographic abnormality. [employer] Operator: JAIME Transcribe Date/Time: Jun 09 2021 4:24P Dictated by : ESTRELLITA CHAVEZ MD This examination was interpreted and the report reviewed and electronically signed by: ESTRELLITA CHAVEZ MD on Jun 09 2021 4:27PM [facility] DIVISION OF RADIOLOGY * * *Final Report* * * DATE OF EXAM: Jun 09 2021 3:12PM WOX [id number] - XR RIB/CHST 3V AP RIB/OBL/CHST L / PROCEDURE REASON: Flank pain * * * * Physician Interpretation * * * * EXAMINATION: X-ray chest and left ribs Clinical History: Flank pain M: XC1_4 Comparison: Chest x-ray 04/10/2021 RESULT: Lines, tubes, and devices: None. Lungs and pleura: No consolidation. No lung mass. No pleural effusion. Cardiomediastinal silhouette: Normal cardiomediastinal silhouette. Musculoskeletal: No acute fracture DIVISION OF RADIOLOGY Provider[facility] * * *Final Report* * * DATE OF EXAM: Apr 8 2022 3:12PM WOX [id number] - XR RIB/CHST 3V AP RIB/OBL/CHST L / PROCEDURE REASON: Flank pain * * * * Physician Interpretation * * * * EXAMINATION: X-ray chest and left ribs Clinical History: Flank pain M: XC1_4 Comparison: Chest x-ray 04/10/2021 RESULT: Lines, tubes, and devices: None. Lungs and pleura: No consolidation. No lung mass. No pleural effusion. Cardiomediastinal silhouette: Normal cardiomediastinal silhouette. Musculoskeletal: No acute fracture IMPRESSION IMPRESSION: No acute radiographic abnormality. 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 Self [employer] Operator: Airtime Transcribe Date/Time: Jun 09 2021 4:30P Dictated by : EMRE NARANJO MD This examination was interpreted and the report reviewed and electronically signed by: EMRE NARANJO MD on Jun 09 2021 4:32PM [facility] DIVISION OF RADIOLOGY * * *Final Report* * * DATE OF EXAM: Jun 09 2021 3:12PM WOX [id number] - XR THORACIC 2V AP/LAT / PROCEDURE REASON: Flank pain * * * * Physician Interpretation * * * * EXAM TITLE: XR THORACIC 2V AP/LAT EXAM DATE/TIME: 06/09/2021 3:12 PM COMPARISON: None. CLINICAL INDICATION/HISTORY: Flank pain. TECHNIQUE: AP, swimmer's and lateral views of the thoracic spine are presented FINDINGS: No fractures or subluxations are noted. There is left-sided curvature/levoscoliosis. Multilevel disc space narrowing demonstrated in the mid to lower thoracic spine. There is moderate osteophyte formation. There is no paraspinal mass or bony destructive process. DIVISION OF RADIOLOGY Provider, [facility] - 06/09/2021 * * *Final Report* * * DATE OF EXAM: Jun 09 2021 3:12PM WOX [id number] - XR THORACIC 2V AP/LAT / PROCEDURE REASON: Flank pain * * * * Physician Interpretation * * * * EXAM TITLE: XR THORACIC 2V AP/LAT EXAM DATE/TIME: 06/09/2021 3:12 PM COMPARISON: None. CLINICAL INDICATION/HISTORY: Flank pain. TECHNIQUE: AP, swimmer's and lateral views of the thoracic spine are presented FINDINGS: No fractures or subluxations are noted. There is left-sided curvature/levoscoliosis. Multilevel disc space narrowing demonstrated in the mid to lower thoracic spine. There is moderate osteophyte formation. There is no paraspinal mass or bony destructive process. 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 Self Propelled [employer] Rol[employer] Operator: JAIME Transcribe Date/Time: Jun 09 2021 4:30P Dictated by : EMRE NARANJO MD This examination was interpreted and the report reviewed and electronically signed by: EMRE NARANJO MD on Jun 09 2021 4:32PM [facility] XR Hand - bilateral PA and L ateral and Obliqueon 05-02-2021 IMPRESSION: 1. 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 Self Propelled Hot [employer] Rol[employer] Operator: [facility] Transcribe Date/Time: May 02 2021 4:50P Dictated by : STACI ROJO MD This examination was interpreted and the report reviewed and electronically signed by: STACI ROJO MD on May 02 2021 4:52PM [facility] DIVISION OF RADIOLOGY * * *Final Report* * * DATE OF EXAM: May 02 2021 1:37PM STX [id number] - XR HAND 3V PA/LAT/OBL ARETHA / PROCEDURE REASON: multiple diagnoses * * * * Physician Interpretation * * * * HAND RADIOGRAPHS - BILATERAL HISTORY: Inflammatory arthritis Pain in joint, multiple sites TECHNOLOGIST PROVIDED HISTORY (if applicable): CHRONIC BILATERAL HAND PAIN. RIGHT HAND WORSE, HISTORY OF ARTHRITIS TECHNIQUE: XR HAND 3V PA/LAT/OBL ARETHA COMPARISON: None available RESULT: There is generalized osteopenia. There is no evidence for articular erosion or periarticular osteopenia in the right hand. No focal bony abnormality is identified. There is mild narrowing of the interphalangeal and MCP joint spaces. There is no soft tissue swelling. There is no evidence for articular erosion or periarticular osteopenia in the left hand. No focal bony abnormality is identified. There is mild narrowing of the interphalangeal and MCP joint spaces. There is no soft tissue swelling. Slight ulnar deviation at the bilateral second through fifth MCP joints. DIVISION OF RADIOLOGY Provider, [facility]imah [facility] - 05/02/2021 * * *Final Report* * * DATE OF EXAM: May 02 2021 1:37PM STX [id number] - XR HAND 3V PA/LAT/OBL ARETHA / PROCEDURE REASON: multiple diagnoses * * * * Physician Interpretation * * * * HAND RADIOGRAPHS - BILATERAL HISTORY: Inflammatory arthritis Pain in joint, multiple sites TECHNOLOGIST PROVIDED HISTORY (if applicable): CHRONIC BILATERAL HAND PAIN. RIGHT HAND WORSE, HISTORY OF ARTHRITIS TECHNIQUE: XR HAND 3V PA/LAT/OBL ARETHA COMPARISON: None available RESULT: There is generalized osteopenia. There is no evidence for articular erosion or periarticular osteopenia in the right hand. No focal bony abnormality is identified. There is mild narrowing of the interphalangeal and MCP joint spaces. There is no soft tissue swelling. There is no evidence for articular erosion or periarticular osteopenia in the left hand. No focal bony abnormality is identified. There is mild narrowing of the interphalangeal and MCP joint spaces. There is no soft tissue swelling. Slight ulnar deviation at the bilateral second through fifth MCP joints. IMPRESSION IMPRESSION: 1. 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 Self Propelled [employer] Rol[employer] Operator: JAIME Transcribe Date/Time: May 02 2021 4:50P Dictated by : STACI ROJO MD This examination was interpreted and the report reviewed and electronically signed by: STACI ROJO MD on May 02 2021 4:52PM EST [facility] Radiology Study observation (narrative) [facility] XR Hand - bilateral PA and L ateral and ObliqueOrdered By: Ccf Provider on 05-02-2021 [facility] No Panel Informationon 04-10 Radiology Study observation (narrative) [facility] XR Chest PA and Lateralon IMPRESSION: No acute radiographic abnormality. Self Propelled [employer] Rol[employer] Operator: JAIME Transcribe Date/Time: Apr 10 2021 3:30P Dictated by : RAUL MUNSON MD This examination was interpreted and the report reviewed and electronically signed by: RAUL MUNSON MD on Apr 10 2021 3:31PM EST DIVISION OF RADIOLOGY * * *Final Report* * * DATE OF EXAM: Apr 10 2021 3:21PM WOX [id number] - XR CHEST 2V FRONTAL/LAT / PROCEDURE REASON: multiple diagnoses * * * * Physician Interpretation * * * * EXAMINATION: CHEST RADIOGRAPH (2 VIEW FRONTAL & LATERAL) CLINICAL HISTORY: Post-COVID chronic cough MQ: XC2_6 EXAM DATE/TIME: 04/10/2021 3:21 PM COMPARISON: Chest x-ray dated October 03, 2020 RESULT: Lines, tubes, and devices: None. Lungs and pleura: No consolidation. No lung mass. No pleural effusion. No pneumothorax. 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 Cardiomediastinal silhouette: Normal cardiomediastinal silhouette. Bones and soft tissues: Degenerative changes are present within the thoracic spine. 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 Lungs and pleura: No consolidation. No lung mass. No pleural effusion. No pneumothorax. 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 Cardiomediastinal silhouette: Normal cardiomediastinal silhouette. Bones and soft tissues: Degenerative changes are present within the thoracic spine. IMPRESSION IMPRESSION: No acute radiographic abnormality. Self Propelled [employer] Rol[employer] Operator: JAIME Transcribe Date/Time: Apr 10 2021 3:30P Dictated by : RAUL MUNSON MD This examination was interpreted and the report reviewed and electronically signed by: RAUL MUNSON MD on Apr 10 2021 3:31PM EST [facility] XR Pelvis and Hip - left AP and Lateral frogon 04-10-2021 IMPRESSION: Mild hip degenerative changes. Self Propelled Hot [employer] Roller Operator: JAIME Transcribe Date/Time: Apr 10 2021 3:32P Dictated by : RAUL MUNSON MD This examination was interpreted and the report reviewed and electronically signed by: RAUL MUNSON MD on Apr 10 2021 3:32PM EST DIVISION OF RADIOLOGY * * *Final Report* * * DATE OF EXAM: Apr 10 2021 3:21PM WOX 5351 - XR HIP 3V PELV+ AP/LAT LT / PROCEDURE REASON: multiple diagnoses * * * * Physician Interpretation * * * * CLINICAL INDICATION: Pain TECHNIQUE: AP radiograph of the pelvis and AP/frog-leg lateral radiographs of the left hip COMPARISON: None FINDINGS: No acute fracture or dislocation. Mild left hip degenerative changes with mild joint space narrowing and small femoral head marginal osteophyte formation. Degenerative changes in the visualized lower lumbar spine. DIVISION [facility] RADIOLOGY [facility] * * *Final Report* * * DATE OF EXAM: Apr 10 2021 3:21PM WOX 5351 - XR HIP 3V PELV+ AP/LAT LT / PROCEDURE REASON: multiple diagnoses * * * * Physician Interpretation * * * * CLINICAL INDICATION: Pain TECHNIQUE: AP radiograph of the pelvis and AP/frog-leg lateral radiographs of the left hip COMPARISON: None FINDINGS: No acute fracture or dislocation. Mild left hip degenerative changes with mild joint space narrowing and small femoral head marginal osteophyte formation. Degenerative changes in the visualized lower lumbar spine. IMPRESSION IMPRESSION: Mild hip degenerative changes. Self Propelled Hot Mix Roller Operator: PSCB Transcribe Date/Time: Apr 10 2021 3:32P Dictated by : RAUL MUNSON MD This examination was interpreted and the report reviewed and electronically signed by: RAUL MUNSON MD on Apr 10 2021 3:32PM EST [facility] XR Pelvis and Hip - left AP and Lateral frogOrdered By: Ccf Provider on 04-10-2021 [facility] Laboratory - Microbiology an d Antimicrobial susceptibilityon 03-25-2021 SARS-CoV-2 (COVID-19) RNA PRABHA+probe Ql (Unsp spec) Detected Not Detect [facility] Work Phone: Comment on above: Normal Reference Ran ge: Not DetectedMethod:(RT-PCR) real-time reverse transcriptase PCRLuminex STEVE Instrument*The Food and Drug Administration (FDA) has issued an Emergency Use Authorization (EAU) for the STEVE SARS-CoV-2 Assay for the rapid detection of the virus that causes COVID-19. This test has been validated, but the FDAs independent review of this validation is pending.*Negative results do not preclude infection and should not be used as the sole basis for treatment or patient management. Optimum specimen types and timing for peak viral levels during infections caused by SARS-CoV-2 have not been determined. Collection of multiple specimens from the same patient may be necessary to detect the virus. The possibility of a false negative result should be considered if the patient has clinical presentation or has had recent exposure. XR Chest PA and Lateralon IMPRESSION: No acute radiographic abnormality. Self Propelled Hot Mix Roller Operator: JAIME Transcribe Date/Time: Oct 03 2020 1:41P Dictated by : EMRE NARANJO MD This examination was interpreted and the report reviewed and electronically signed by: EMRE NARANJO MD on Oct 03 2020 1:42PM [facility] DIVISION OF RADIOLOGY * * *Final Report* * * DATE OF EXAM: Oct 03 2020 1:01PM WOX [id number] - XR CHEST 2V FRONTAL/LAT / PROCEDURE REASON: Dry cough * * * * Physician Interpretation * * * * EXAMINATION: CHEST RADIOGRAPH (2 VIEW FRONTAL & LATERAL) CLINICAL HISTORY: Dry cough MQ: XC2_6 EXAM DATE/TIME: 10/03/2020 1:01 PM COMPARISON: Chest x-ray on 08/06/2018. RESULT: Lines, tubes, and devices: None. Lungs and pleura: No consolidation. No lung mass. No pleural effusion. No pneumothorax. Stable eventration of the right diaphragm. Cardiomediastinal silhouette: Stable cardiomediastinal silhouette. Bones and soft tissues: There are degenerative changes in the spine. DIVISION OF RADIOLOGY Provider, Caridad Tona Ku - 10/03/2020 * * *Final Report* * * DATE OF EXAM: Oct 03 2020 1:01PM WOX [id number] - XR CHEST 2V FRONTAL/LAT / PROCEDURE REASON: Dry cough * * * * Physician Interpretation * * * * EXAMINATION: CHEST RADIOGRAPH (2 VIEW FRONTAL & LATERAL) CLINICAL HISTORY: Dry cough MQ: XC2_6 EXAM DATE/TIME: 10/03/2020 1:01 PM COMPARISON: Chest x-ray on 08/06/2018. RESULT: Lines, tubes, and devices: None. Lungs and pleura: No consolidation. No lung mass. No pleural effusion. No pneumothorax. Stable eventration of the right diaphragm. Cardiomediastinal silhouette: Stable cardiomediastinal silhouette. Bones and soft tissues: There are degenerative changes in the spine. IMPRESSION IMPRESSION: No acute radiographic abnormality. Self Propelled Hot Mix Roller Operator: JAIME Transcribe Date/Time: Oct 03 2020 1:41P Dictated by : EMRE NARANJO MD This examination was interpreted and the report reviewed and electronically signed by: EMRE NARANJO MD on Oct 03 2020 1:42PM EST [facility] Radiology Study observation (narrative) [facility] XR Chest PA and LateralOrder ed By: [facility] Provider on 10-03-2020 [facility] Large Joint Arthro/Inj: L kn ee joint [facility] Vital Signs Date Time Vital Sign Value Performing Clinician Wendy snyder 08-08-2024 14:07-0400 Body mass index (BMI) [Ratio] 25.11 kg/m2 America Moomaw [employer] K[employer]PER Work Phone: [facility] 08-08-2024 14:07-0400 Body temperature 97.7 [degF] America Moomaw [employer] KEEPER Work Phone: [facility] 08-08-2024 14:07-0400 Body weight 54.5 kg America Moomaw [employer] KEEPER Work Phone: [facility] 08-08-2024 14:07-0400 Diastolic blood pressure 72 mm[Hg] America Moomaw [employer] KEEPER Work Phone: [facility] 08-08-2024 14:07-0400 Heart rate 57 /min America Moomaw [employer] KEEPER Work Phone: [facility] 08-08-2024 14:07-0400 Respiratory rate 19 /min America Moomaw [employer] KEEPER Work Phone: [facility] 08-08-2024 14:07-0400 SaO2% (BldA) [Mass fraction] 97 % America Moomaw [employer] KEEPER Work Phone: [facility] 08-08-2024 14:07-0400 Systolic blood pressure 140 mm[Hg] America Moomaw [employer] K[employer]PER Work Phone: [facility] 06-30-2024 15:50-0400 Body mass index (BMI) [Ratio] 25.57 kg/m2 Lani Clutter PA-C Work Phone: [facility] 06-30-2024 15:50-0400 Body temperature 98.91 [degF] Lani Clutter PA-C Work Phone: [facility] 06-30-2024 15:50-0400 Body weight 55.5 kg Lani Clutter PA-C Work Phone: [facility] 06-30-2024 15:50-0400 Diastolic blood pressure 68 mm[Hg] Lani Clutter PA-C Work Phone: [facility] 06-30-2024 15:50-0400 Heart rate 66 /min Lani Clutter PA-C Work Phone: [facility] 06-30-2024 15:50-0400 Respiratory rate 16 /min Lani Clutter PA-C Work Phone: [facility] 06-30-2024 15:50-0400 SaO2% (BldA) [Mass fraction] 96 % Lani Clutter PA-C Work Phone: [facility] 06-30-2024 15:50-0400 Systolic blood pressure 112 mm[Hg] Lani Clutter PA-C Work Phone: [facility] 06-08-2024 11:45-0400 Body mass index (BMI) [Ratio] 24.87 kg/m2 Edenilson Nicholson DO Work Phone: [facility] 06-08-2024 11:45-0400 Body temperature 97 [degF] Edenilson Nicholson DO Work Phone: [facility] 06-08-2024 11:45-0400 Body weight 53.98 kg Edenilson Nicholson DO Work Phone: [facility] 06-08-2024 11:45-0400 Diastolic blood pressure 80 mm[Hg] Edenilson Nicholson DO Work Phone: [facility] 06-08-2024 11:45-0400 Heart rate 60 /min Edenilson Nicholson DO Work Phone: [facility] 06-08-2024 11:45-0400 Respiratory rate 16 /min Edenilson Nicholson DO Work Phone: [facility] 06-08-2024 11:45-0400 Systolic blood pressure 120 mm[Hg] Edenilson Nicholson DO Work Phone: [facility] 06-02-2024 11:07-0400 Body mass index (BMI) [Ratio] 24.92 kg/m2 Angeline Cory [employer] K[employer]PER Work Phone: [facility] 06-02-2024 11:07-0400 Body temperature 97.3 [degF] Angeline Cory [employer] KEEPER Work Phone: [facility] 06-02-2024 11:07-0400 Body weight 54.09 kg Angeline Cory [employer] KEEPER Work Phone: [facility] 06-02-2024 11:07-0400 Diastolic blood pressure 72 mm[Hg] Angeline Cory [employer] KEEPER Work Phone: [facility] 06-02-2024 11:07-0400 Heart rate 51 /min Angeline Monterroso [employer] KEEPER Work Phone: [facility] 06-02-2024 11:07-0400 SaO2% (BldA) [Mass fraction] 99 % Angeline Cory [employer] KEEPER Work Phone: [facility] 06-02-2024 11:07-0400 Systolic blood pressure 120 mm[Hg] Angeline Monterroso [employer] KEEPER Work Phone: [facility] 05-06-2024 10:16-0500 Body mass index (BMI) [Ratio] 25.41 kg/m2 Kandi Park [employer] KEEPER Work Phone: [facility] 05-06-2024 10:16-0500 Body temperature 98.2 [degF] Kandi Park [employer] KEEPER Work Phone: [facility] 05-06-2024 10:16-0500 Body weight 55.16 kg Kandi Park [employer] KEEPER Work Phone: [facility] 05-06-2024 10:16-0500 Diastolic blood pressure 62 mm[Hg] Kandi Park [employer] KEEPER Work Phone: [facility] 05-06-2024 10:16-0500 Heart rate 54 /min Kandi Park [employer] KEEPER Work Phone: [facility] 05-06-2024 10:16-0500 Respiratory rate 12 /min Kandi Park [employer] KEEPER Work Phone: [facility] 05-06-2024 10:16-0500 SaO2% (BldA) [Mass fraction] 98 % Kandi Park [employer] KEEPER Work Phone: [facility] 05-06-2024 10:16-0500 Systolic blood pressure 110 mm[Hg] Kandi Park [employer] KEEPER Work Phone: [facility] 04-26-2024 12:59-0500 Body mass index (BMI) [Ratio] 25.76 kg/m2 Sherrie Gonzales [employer] KEEPER Work Phone: [facility] 04-26-2024 12:59-0500 Body temperature 97.9 [degF] Sherrie Gonzales [employer] KEEPER Work Phone: [facility] 04-26-2024 12:59-0500 Body weight 55.9 kg Sherrie Gonzales [employer] KEEPER Work Phone: [facility] 04-26-2024 12:59-0500 Diastolic blood pressure 68 mm[Hg] Sherrie Gonzales [employer] KEEPER Work Phone: [facility] 04-26-2024 12:59-0500 Heart rate 60 /min Sherrie Gonzales [employer] KEEPER Work Phone: [facility] 04-26-2024 12:59-0500 Respiratory rate 20 /min Sherrie Gonzales [employer] KEEPER Work Phone: [facility] 04-26-2024 12:59-0500 SaO2% (BldA) [Mass fraction] 97 % Sherrie Gonzales [employer] KEEPER Work Phone: [facility] 04-26-2024 12:59-0500 Systolic blood pressure 120 mm[Hg] Sherrie Gonzales [employer] KEEPER Work Phone: [facility] 04-15-2024 12:23-0500 Body mass index (BMI) [Ratio] 25.67 kg/m2 To Sibley MD Work Phone: [facility] 04-15-2024 12:23-0500 Body temperature 98.2 [degF] To Sibley MD Work Phone: [facility] 04-15-2024 12:23-0500 Body weight 55.7 kg To Sibley MD Work Phone: [facility] 04-15-2024 12:23-0500 Diastolic blood pressure 62 mm[Hg] To Sibley MD Work Phone: [facility] 04-15-2024 12:23-0500 Heart rate 54 /min To Sibley MD Work Phone: [facility] 04-15-2024 12:23-0500 Respiratory rate 16 /min To Sibley MD Work Phone: [facility] 04-15-2024 12:23-0500 SaO2% (BldA) [Mass fraction] 98 % To Sibley MD Work Phone: [facility] 04-15-2024 12:23-0500 Systolic blood pressure 128 mm[Hg] To Sibley MD Work Phone: [facility] 03-25-2024 11:04-0500 Body mass index (BMI) [Ratio] 25.76 kg/m2 Angeline Cory [employer] KEEPER Work Phone: [facility] 03-25-2024 11:04-0500 Body weight 55.9 kg Angeline Cory [employer] KEEPER Work Phone: [facility] 03-25-2024 11:04-0500 Diastolic blood pressure 64 mm[Hg] Angeline Cory [employer] KEEPER Work Phone: [facility] 03-25-2024 11:04-0500 Heart rate 53 /min Angeline Cory [employer] KEEPER Work Phone: [facility] 03-25-2024 11:04-0500 Respiratory rate 16 /min Angeline Cory [employer] KEEPER Work Phone: [facility] 03-25-2024 11:04-0500 SaO2% (BldA) [Mass fraction] 99 % Angeline Cory [employer] KEEPER Work Phone: [facility] 03-25-2024 11:04-0500 Systolic blood pressure 130 mm[Hg] Angeline Cory [employer] KEEPER Work Phone: [facility] 01-25-2024 11:39-0500 Body mass index (BMI) [Ratio] 25.34 kg/m2 America Moomaw [employer] KEEPER Work Phone: [facility] 01-25-2024 11:39-0500 Body temperature 97.5 [degF] America Moomaw [employer] KEEPER Work Phone: [facility] 01-25-2024 11:39-0500 Body weight 55 kg America Moomaw [employer] KEEPER Work Phone: [facility] 01-25-2024 11:39-0500 Diastolic blood pressure 82 mm[Hg] America Moomaw [employer] KEEPER Work Phone: [facility] 01-25-2024 11:39-0500 Heart rate 63 /min America Moomaw [employer] KEEPER Work Phone: [facility] 01-25-2024 11:39-0500 Respiratory rate 18 /min America Moomaw [employer] KEEPER Work Phone: [facility] 01-25-2024 11:39-0500 SaO2% (BldA) [Mass fraction] 97 % America Moomaw [employer] KEEPER Work Phone: [facility] 01-25-2024 11:39-0500 Systolic blood pressure 146 mm[Hg] America Moomaw [employer] KEEPER Work Phone: [facility] 01-22-2024 10:45-0500 Body mass index (BMI) [Ratio] 25.07 kg/m2 Edenilson Nicholson DO Work Phone: [facility] 01-22-2024 10:45-0500 Body temperature 96.21 [degF] Edenilson Nicholson DO Work Phone: [facility] 01-22-2024 10:45-0500 Body weight 54.4 kg Edenilson Nichloson DO Work Phone: [facility] 01-22-2024 10:45-0500 Diastolic blood pressure 72 mm[Hg] Edenilson Nicholson DO Work Phone: [facility] 01-22-2024 10:45-0500 Heart rate 60 /min Edenilson Nicholson DO Work Phone: [facility] 01-22-2024 10:45-0500 Respiratory rate 16 /min Edenilson Nicholson DO Work Phone: [facility] 01-22-2024 10:45-0500 Systolic blood pressure 128 mm[Hg] Edenilson Nicholson DO Work Phone: [facility] 01-09-2024 10:11-0500 Body mass index (BMI) [Ratio] 25.48 kg/m2 Angeline Cory [employer] KEEPER Work Phone: [facility] 01-09-2024 10:11-0500 Body temperature 97 [degF] Angeline Cory [employer] KEEPER Work Phone: [facility] 01-09-2024 10:11-0500 Body weight 55.3 kg Angeline Cory [employer] KEEPER Work Phone: [facility] 01-09-2024 10:11-0500 Diastolic blood pressure 58 mm[Hg] Angeline Cory [employer].SH[employer] KEEPER Work Phone: [facility] 01-09-2024 10:11-0500 Heart rate 55 /min Angeline Cory [employer] KEEPER Work Phone: [facility] 01-09-2024 10:11-0500 Respiratory rate 16 /min Angeline Cory [employer].SH[employer] KEEPER Work Phone: [facility] 01-09-2024 10:11-0500 SaO2% (BldA) [Mass fraction] 98 % Angeline Cory [employer] KEEPER Work Phone: [facility] 01-09-2024 10:11-0500 Systolic blood pressure 102 mm[Hg] Angeline Cory [employer] KEEPER Work Phone: [facility] 01-03-2024 11:58-0400 Body mass index (BMI) [Ratio] 26.08 kg/m2 Kathryn Pearson [employer] KEEPER Work Phone: [facility] 01-03-2024 11:58-0400 Body temperature 97.11 [degF] Kathryn Pearson [employer] KEEPER Work Phone: [facility] 01-03-2024 11:58-0400 Body weight 56.6 kg Kathryn Pearson [employer] KEEPER Work Phone: [facility] 01-03-2024 11:58-0400 Diastolic blood pressure 73 mm[Hg] Kathryn Pearson [employer] KEEPER Work Phone: [facility] 01-03-2024 11:58-0400 Heart rate 50 /min Kathryn Pearson [employer] KEEPER Work Phone: [facility] 01-03-2024 11:58-0400 Respiratory rate 18 /min Kathryn Pearson [employer] KEEPER Work Phone: [facility] 01-03-2024 11:58-0400 SaO2% (BldA) [Mass fraction] 99 % Kathryn Pearson [employer] KEEPER Work Phone: [facility] 01-03-2024 11:58-0400 Systolic blood pressure 151 mm[Hg] Kathryn Pearson [employer] KEEPER Work Phone: [facility] 12-24-2023 17:17-0400 Body mass index (BMI) [Ratio] 25.94 kg/m2 Abigail Howelller-Wood [employer] KEEPER Work Phone: [facility] 12-24-2023 17:17-0400 Body temperature 98.49 [degF] Abigail Praisler-Wood [employer] KEEPER Work Phone: [facility] 12-24-2023 17:17-0400 Body weight 56.3 kg Abigail Praisler-Juventino [employer] KEEPER Work Phone: [facility] 12-24-2023 17:17-0400 Diastolic blood pressure 80 mm[Hg] Abigail Praisler-Wood [employer] KEEPER Work Phone: [facility] 12-24-2023 17:17-0400 Heart rate 60 /min Abigail Praisler-Wood [employer] KEEPER Work Phone: [facility] 12-24-2023 17:17-0400 Respiratory rate 16 /min Abigail Praisler-Wood [employer] KEEPER Work Phone: [facility] 12-24-2023 17:17-0400 SaO2% (BldA) [Mass fraction] 96 % Abigailjosi Olveraisler-Wood [employer] KEEPER Work Phone: [facility] 12-24-2023 17:17-0400 Systolic blood pressure 120 mm[Hg] Abigail Balderas [employer] KEEPER Work Phone: [facility] 12-05-2023 10:47-0400 Body mass index (BMI) [Ratio] 24.97 kg/m2 Kinga Suppan [employer] KEEPER Work Phone: [facility] 12-05-2023 10:47-0400 Body weight 54.2 kg Kinga Suppan [employer] KEEPER Work Phone: [facility] 12-05-2023 10:47-0400 Diastolic blood pressure 62 mm[Hg] Kinga Suppan [employer] KEEPER Work Phone: [facility] 12-05-2023 10:47-0400 Heart rate 62 /min Kinga Suppan [employer] KEEPER Work Phone: [facility] 12-05-2023 10:47-0400 Respiratory rate 14 /min Kinga Suppan [employer] KEEPER Work Phone: [facility] 12-05-2023 10:47-0400 SaO2% (BldA) [Mass fraction] 98 % Kinga Suppan [employer] KEEPER Work Phone: [facility] 12-05-2023 10:47-0400 Systolic blood pressure 120 mm[Hg] Kinga Suppan [employer] KEEPER Work Phone: [facility] 11-25-2023 12:41-0400 Body mass index (BMI) [Ratio] 24.87 kg/m2 Kinga Suppan [employer] K[employer]PER Work Phone: [facility] 11-25-2023 12:41-0400 Body temperature 97.9 [degF] Kinga Suppan [employer] KEEPER Work Phone: [facility] 11-25-2023 12:41-0400 Body weight 53.98 kg Kinga Suppan [employer] KEEPER Work Phone: [facility] 11-25-2023 12:41-0400 Diastolic blood pressure 64 mm[Hg] Kinga Suppan [employer] KEEPER Work Phone: [facility] 11-25-2023 12:41-0400 Heart rate 62 /min Kinga Suppan [employer] KEEPER Work Phone: [facility] 11-25-2023 12:41-0400 SaO2% (BldA) [Mass fraction] 97 % Kinga Suppan [employer] KEEPER Work Phone: [facility] 11-25-2023 12:41-0400 Systolic blood pressure 120 mm[Hg] Kinga Suppan [employer] KEEPER Work Phone: [facility] 11-13-2023 12:19-0400 Body mass index (BMI) [Ratio] 23.96 kg/m2 Anamaria Paul MD Work Phone: [facility] 11-13-2023 12:19-0400 Body weight 52 kg Anamaria Paul MD Work Phone: [facility] 11-13-2023 12:19-0400 Diastolic blood pressure 62 mm[Hg] Anamaria Paul MD Work Phone: [facility] 11-13-2023 12:19-0400 Heart rate 54 /min Anamaria Paul MD Work Phone: [facility] 11-13-2023 12:19-0400 Systolic blood pressure 133 mm[Hg] Anamaria Paul MD Work Phone: [facility] 10-28-2023 11:05-0400 Body mass index (BMI) [Ratio] 24.33 kg/m2 Krislyn Aberegg PA Work Phone: [facility] 10-28-2023 11:05-0400 Body temperature 98.29 [degF] Krislyn Aberegg PA Work Phone: [facility] 10-28-2023 11:05-0400 Body weight 52.8 kg Krislyn Aberegg PA Work Phone: [facility] 10-28-2023 11:05-0400 Diastolic blood pressure 60 mm[Hg] Krislyn Aberegg PA Work Phone: [facility] 10-28-2023 11:05-0400 Heart rate 60 /min Krislyn Aberegg PA Work Phone: [facility] 10-28-2023 11:05-0400 Respiratory rate 21 /min Krislyn Aberegg PA Work Phone: [facility] 10-28-2023 11:05-0400 SaO2% (BldA) [Mass fraction] 97 % Krislyn Aberegg PA Work Phone: [facility] 10-28-2023 11:05-0400 Systolic blood pressure 120 mm[Hg] Krislyn Aberegg PA Work Phone: [facility] 10-22-2023 11:42-0400 Diastolic blood pressure 76 mm[Hg] Edenilson Nicholson DO Work Phone: [facility] 10-22-2023 11:42-0400 Systolic blood pressure 130 mm[Hg] Edenilson Nicholson DO Work Phone: [facility] 10-22-2023 11:39-0400 Body mass index (BMI) [Ratio] 25.08 kg/m2 Edenilson Nicholson DO Work Phone: [facility] 10-22-2023 11:39-0400 Body temperature 97 [degF] Edenilson Nicholson DO Work Phone: [facility] 10-22-2023 11:39-0400 Body weight 54.43 kg Edenilson Nicholson DO Work Phone: [facility] 10-22-2023 11:39-0400 Heart rate 60 /min Edenilson Nicholson DO Work Phone: [facility] 10-22-2023 11:39-0400 Respiratory rate 20 /min Edenilson Nicholson DO Work Phone: [facility] 09-18-2023 18:15-0400 Body mass index (BMI) [Ratio] 24.87 kg/m2 Edenilson Nicholson DO Work Phone: [facility] 09-18-2023 18:15-0400 Body temperature 98.01 [degF] Edenilson Nicholson DO Work Phone: [facility] 09-18-2023 18:15-0400 Body weight 53.98 kg Edenilson Nicholson DO Work Phone: [facility] 09-18-2023 18:15-0400 Diastolic blood pressure 60 mm[Hg] Edenilson Nicholson DO Work Phone: [facility] 09-18-2023 18:15-0400 Heart rate 60 /min Edenilson Nicholson DO Work Phone: [facility] 09-18-2023 18:15-0400 Respiratory rate 16 /min Edenilson Nicholson DO Work Phone: [facility] 09-18-2023 18:15-0400 Systolic blood pressure 120 mm[Hg] Edenilson Nicholson DO Work Phone: [facility] 07-16-2023 14:32-0400 Body mass index (BMI) [Ratio] 25.46 kg/m2 Angeline Cory [employer] Work Phone: [facility] 07-16-2023 14:32-0400 Body weight 55.25 kg Angeline Kleinman [employer] K[employer]PER Work Phone: [facility] 07-16-2023 14:32-0400 Diastolic blood pressure 76 mm[Hg] Angeline Cory [employer] K[employer]PER Work Phone: [facility] 07-16-2023 14:32-0400 Heart rate 49 /min Angeline Cory [employer] K[employer]PER Work Phone: [facility] 07-16-2023 14:32-0400 Respiratory rate 16 /min Angeline Cory [employer] KEEPER Work Phone: [facility] 07-16-2023 14:32-0400 SaO2% (BldA) [Mass fraction] 98 % Angeline Monterroso [employer] KEEPER Work Phone: [facility] 07-16-2023 14:32-0400 Systolic blood pressure 122 mm[Hg] Angeline Monterroso [employer] KEEPER Work Phone: [facility] 07-04-2023 13:53-0400 Body mass index (BMI) [Ratio] 24.87 kg/m2 Chapis Podlogar [employer] K[employer]PER Work Phone: [facility] 07-04-2023 13:53-0400 Body temperature 98.49 [degF] Chapis Podlogar [employer] KEEPER Work Phone: [facility] 07-04-2023 13:53-0400 Body weight 53.98 kg Chapis Podlogar [employer] KEEPER Work Phone: [facility] 07-04-2023 13:53-0400 Diastolic blood pressure 64 mm[Hg] Chapis Podlogar [employer] KEEPER Work Phone: [facility] 07-04-2023 13:53-0400 Heart rate 54 /min Chapis Podlogar [employer] KEEPER Work Phone: [facility] 07-04-2023 13:53-0400 Respiratory rate 16 /min Chapis Podlogar [employer]IL[employer] KEEPER Work Phone: [facility] 07-04-2023 13:53-0400 SaO2% (BldA) [Mass fraction] 98 % Chapis Podlogar [employer] KEEPER Work Phone: [facility] 07-04-2023 13:53-0400 Systolic blood pressure 118 mm[Hg] Chapis Podlogar [employer] KEEPER Work Phone: [facility] 06-27-2023 14:26-0400 Body mass index (BMI) [Ratio] 24.79 kg/m2 Angeline Monterroso [employer] K[employer]PER Work Phone: [facility] 06-27-2023 14:26-0400 Body temperature 98.2 [degF] Angeline Monterroso [employer] KEEPER Work Phone: [facility] 06-27-2023 14:26-0400 Body weight 53.8 kg Angeline Cory [employer] K[employer]PER Work Phone: [facility] 06-27-2023 14:26-0400 Diastolic blood pressure 64 mm[Hg] Angeline Cory [employer] K[employer]PER Work Phone: [facility] 06-27-2023 14:26-0400 Heart rate 56 /min Angeline Cory [employer]PER Work Phone: [facility] 06-27-2023 14:26-0400 Respiratory rate 16 /min Angeline Cory [employer] KEEPER Work Phone: [facility] 06-27-2023 14:26-0400 SaO2% (BldA) [Mass fraction] 98 % Angeline Cory [employer] K[employer] Work Phone: [facility] 06-27-2023 14:26-0400 Systolic blood pressure 108 mm[Hg] Angeline Cory [employer] KEEPER Work Phone: [facility] 06-12-2023 11:06-0400 Body weight 52.62 kg Angeline Cory [employer] Work Phone: [facility] 06-12-2023 11:06-0400 Diastolic blood pressure 72 mm[Hg] Angeline Cory [employer] Work Phone: [facility] 06-12-2023 11:06-0400 Heart rate 52 /min Angeline Cory PLEASURE CRAFT SAILOR.SHIP KEEPER Work Phone: [facility] 06-12-2023 11:06-0400 Respiratory rate 16 /min Angeline Cory PLEASURE CRAFT SAILOR.SHIP KEEPER Work Phone: [facility] 06-12-2023 11:06-0400 SaO2% (BldA) [Mass fraction] 99 % Angeline Cory PLEASURE CRAFT SAILOR.SHIP KEEPER Work Phone: [facility] 06-12-2023 11:06-0400 Systolic blood pressure 124 mm[Hg] Angeline Cory PLEASURE CRAFT SAILOR.SHIP KEEPER Work Phone: [facility] 05-08-2023 08:47-0500 Body weight 53.98 kg Angeline Cory PLEASURE CRAFT SAILOR.SHIP KEEPER Work Phone: [facility] 05-08-2023 08:47-0500 Diastolic blood pressure 72 mm[Hg] Angeline Cory PLEASURE CRAFT SAILOR.SHIP KEEPER Work Phone: [facility] 05-08-2023 08:47-0500 Heart rate 58 /min Angeline Cory PLEASURE CRAFT SAILOR.SHIP KEEPER Work Phone: [facility] 05-08-2023 08:47-0500 Respiratory rate 16 /min Angeline Cory PLEASURE CRAFT SAILOR.SHIP KEEPER Work Phone: [facility] 05-08-2023 08:47-0500 SaO2% (BldA) [Mass fraction] 95 % Angeline Cory PLEASURE CRAFT SAILOR.SHIP KEEPER Work Phone: [facility] 05-08-2023 08:47-0500 Systolic blood pressure 132 mm[Hg] Angeline Cory PLEASURE CRAFT SAILOR.SHIP KEEPER Work Phone: [facility] 04-17-2023 17:29-0500 Body temperature 97.3 [degF] Edenilson Nicholson DO Work Phone: [facility] 04-17-2023 17:29-0500 Body weight 54.43 kg Edenilson Nicholson DO Work Phone: [facility] 04-17-2023 17:29-0500 Diastolic blood pressure 80 mm[Hg] Edenilson Nicholson DO Work Phone: [facility] 04-17-2023 17:29-0500 Heart rate 60 /min Edenilson Nicholson DO Work Phone: [facility] 04-17-2023 17:29-0500 Respiratory rate 16 /min Edenilson Nicholson DO Work Phone: [facility] 04-17-2023 17:29-0500 Systolic blood pressure 120 mm[Hg] Edenilson Nicholson DO Work Phone: [facility] 01-28-2023 13:10-0500 Body weight 54.25 kg Kandi Park PLEASURE CRAFT SAILOR.SHIP KEEPER Work Phone: [facility] 01-28-2023 13:10-0500 Diastolic blood pressure 64 mm[Hg] Kandi Park PLEASURE CRAFT SAILOR.SHIP KEEPER Work Phone: [facility] 01-28-2023 13:10-0500 Heart rate 60 /min Kandi Park PLEASURE CRAFT SAILOR.SHIP KEEPER Work Phone: [facility] 01-28-2023 13:10-0500 Respiratory rate 12 /min Kandi Park PLEASURE CRAFT SAILOR.SHIP KEEPER Work Phone: [facility] 01-28-2023 13:10-0500 Systolic blood pressure 120 mm[Hg] Kandi Park PLEASURE CRAFT SAILOR.SHIP KEEPER Work Phone: [facility] 01-21-2023 08:54-0500 Body weight 54.43 kg Kandi Park PLEASURE CRAFT SAILOR.SHIP KEEPER Work Phone: [facility] 01-21-2023 08:54-0500 Diastolic blood pressure 62 mm[Hg] Kandi Park PLEASURE CRAFT SAILOR.SHIP KEEPER Work Phone: [facility] 01-21-2023 08:54-0500 Heart rate 55 /min Kandi Park PLEASURE CRAFT SAILOR.SHIP KEEPER Work Phone: [facility] 01-21-2023 08:54-0500 Respiratory rate 14 /min Kandi Park PLEASURE CRAFT SAILOR.SHIP KEEPER Work Phone: [facility] 01-21-2023 08:54-0500 SaO2% (BldA) [Mass fraction] 98 % Kandi Park PLEASURE CRAFT SAILOR.SHIP KEEPER Work Phone: [facility] 01-21-2023 08:54-0500 Systolic blood pressure 120 mm[Hg] Kandi Park PLEASURE CRAFT SAILOR.SHIP KEEPER Work Phone: [facility] 01-19-2023 12:05-0500 Blood Pressure Cuff Size DR MIRA VILLATORO DO [facility] 01-19-2023 12:05-[address] MIRA VILLATORO DO [facility] 01-19-2023 12:05-[address] MIRA VILLATORO DO [facility] 01-19-2023 12:05-0500 Body temperature 97.52 [degF] DR MIRA VILLATORO DO [facility] 01-19-2023 12:05-0500 Diastolic Blood Pressure Non-Invasive 76 mm[Hg] DR MIRA VILLATORO DO [facility] 01-19-2023 12:05-0500 Heart rate 57 /min DR MIRA VILLATORO DO [facility] 01-19-2023 12:05-0500 Respiratory rate 16 /min DR MIRA VILLATORO DO [facility] 01-19-2023 12:05-0500 Systolic Blood Pressure Non-Invasive 189 mm[Hg] DR MIRA VILLATORO DO [facility] 11-19-2022 13:06-0400 Body height 147.3 cm Mellisa Villalobos DO Work Phone: [facility] 11-19-2022 13:06-0400 Body weight 52.16 kg Mellisa Villalobos DO Work Phone: [facility] 11-14-2022 10:29-0400 Body temperature 97.11 [degF] Edenilson Nicholson DO Work Phone: [facility] 11-14-2022 10:29-0400 Body weight 52.62 kg Edenilson Nicholson DO Work Phone: [facility] 11-14-2022 10:29-0400 Diastolic blood pressure 64 mm[Hg] Edenilson Nicholson DO Work Phone: [facility] 11-14-2022 10:29-0400 Heart rate 60 /min Edenilson Nicholson DO Work Phone: [facility] 11-14-2022 10:29-0400 Respiratory rate 16 /min Edenilson Nicholson DO Work Phone: [facility] 11-14-2022 10:29-0400 Systolic blood pressure 120 mm[Hg] Edenilson Nicholson DO Work Phone: [facility] 11-13-2022 16:01-0400 Body temperature 98.01 [degF] Johnie Pendlebury PLEASURE CRAFT SAILOR.SHIP KEEPER Work Phone: [facility] 11-13-2022 16:01-0400 Body weight 54.88 kg Johnie Pendlebury PLEASURE CRAFT SAILOR.SHIP KEEPER Work Phone: [facility] 11-13-2022 16:01-0400 Diastolic blood pressure 64 mm[Hg] Johnie Pendlebury PLEASURE CRAFT SAILOR.SHIP KEEPER Work Phone: [facility] 11-13-2022 16:01-0400 Heart rate 68 /min Johnie Pendlebury PLEASURE CRAFT SAILOR.SHIP KEEPER Work Phone: [facility] 11-13-2022 16:01-0400 Respiratory rate 16 /min Johnie Pendlebury PLEASURE CRAFT SAILOR.SHIP KEEPER Work Phone: [facility] 11-13-2022 16:01-0400 SaO2% (BldA) [Mass fraction] 100 % Johnie Pendlebury PLEASURE CRAFT SAILOR.SHIP KEEPER Work Phone: [facility] 11-13-2022 16:01-0400 Systolic blood pressure 92 mm[Hg] Johnie Pendlebury PLEASURE CRAFT SAILOR.SHIP KEEPER Work Phone: [facility] 10-12-2022 10:06-0400 Body weight 52.62 kg NA Rodney PA-C Work Phone: [facility] 10-12-2022 10:06-0400 Diastolic blood pressure 62 mm[Hg] NA Rodney PA-C Work Phone: [facility] 10-12-2022 10:06-0400 Heart rate 73 /min NA Rodney PA-C Work Phone: [facility] 10-12-2022 10:06-0400 Respiratory rate 14 /min NA Rodney PA-C Work Phone: [facility] 10-12-2022 10:06-0400 SaO2% (BldA) [Mass fraction] 97 % NA Rodney PA-C Work Phone: [facility] 10-12-2022 10:06-0400 Systolic blood pressure 110 mm[Hg] NA Rodney PA-C Work Phone: [facility] 09-20-2022 08:49-0400 Body temperature 97.81 [degF] NA Rodney PA-C Work Phone: [facility] 09-20-2022 08:49-0400 Body weight 51.26 kg NA Rodney PA-C Work Phone: [facility] 09-20-2022 08:49-0400 Diastolic blood pressure 66 mm[Hg] NA Rodney PA-C Work Phone: [facility] 09-20-2022 08:49-0400 Heart rate 58 /min NA Rodney PA-C Work Phone: [facility] 09-20-2022 08:49-0400 SaO2% (BldA) [Mass fraction] 96 % NA Rodney PA-C Work Phone: [facility] 09-20-2022 08:49-0400 Systolic blood pressure 94 mm[Hg] NA Rodney PA-C Work Phone: [facility] 08-01-2022 10:36-0400 Body temperature 97 [degF] Edenilson Nicholson DO Work Phone: [facility] 08-01-2022 10:36-0400 Body weight 51.71 kg Edenilson Nicholson DO Work Phone: [facility] 08-01-2022 10:36-0400 Diastolic blood pressure 60 mm[Hg] Edenilson Nicholson DO Work Phone: [facility] 08-01-2022 10:36-0400 Heart rate 60 /min Edenilson Nicholson DO Work Phone: [facility] 08-01-2022 10:36-0400 Respiratory rate 16 /min Edenilson Nicholson DO Work Phone: [facility] 08-01-2022 10:36-0400 Systolic blood pressure 90 mm[Hg] Edenilson Nicholson DO Work Phone: [facility] 07-14-2022 14:03-0400 Body temperature 97.9 [degF] Efra Stinson MD Work Phone: [facility] 07-14-2022 14:03-0400 Body weight 53.43 kg Efra Stinson MD Work Phone: [facility] 07-14-2022 14:03-0400 Diastolic blood pressure 70 mm[Hg] Efra Stinson MD Work Phone: [facility] 07-14-2022 14:03-0400 Heart rate 63 /min Efra Stinson MD Work Phone: [facility] 07-14-2022 14:03-0400 Respiratory rate 20 /min Efra Stinson MD Work Phone: [facility] 07-14-2022 14:03-0400 SaO2% (BldA) [Mass fraction] 98 % Efra Stinson MD Work Phone: [facility] 07-14-2022 14:03-0400 Systolic blood pressure 140 mm[Hg] Efra Stinson MD Work Phone: [facility] 06-27-2022 08:48-0400 Body weight 53.16 kg Angeline Monterroso APRN.SHIP KEEPER Work Phone: [facility] 06-27-2022 08:48-0400 Diastolic blood pressure 78 mm[Hg] Angeline Monterroso PLEASURE CRAFT SAILOR.SHIP KEEPER Work Phone: [facility] 06-27-2022 08:48-0400 Heart rate 56 /min Angeline Cory PLEASURE CRAFT SAILOR.SHIP KEEPER Work Phone: [facility] 06-27-2022 08:48-0400 Respiratory rate 16 /min Angeline Cory PLEASURE CRAFT SAILOR.SHIP KEEPER Work Phone: [facility] 06-27-2022 08:48-0400 SaO2% (BldA) [Mass fraction] 100 % Angeline Cory PLEASURE CRAFT SAILOR.SHIP KEEPER Work Phone: [facility] 06-27-2022 08:48-0400 Systolic blood pressure 130 mm[Hg] Angeline Cory PLEASURE CRAFT SAILOR.SHIP KEEPER Work Phone: [facility] 05-10-2022 10:56-0500 Diastolic blood pressure 53 mm[Hg] Owen Rivas MD Work Phone: [facility] 05-10-2022 10:56-0500 Heart rate 57 /min Owen Rivas MD Work Phone: [facility] 05-10-2022 10:56-0500 Respiratory rate 16 /min Owen Rivas MD Work Phone: [facility] 05-10-2022 10:56-0500 SaO2% (BldA) [Mass fraction] 97 % Owen Rivas MD Work Phone: [facility] 05-10-2022 10:56-0500 Systolic blood pressure 113 mm[Hg] Owen Rivas MD Work Phone: [facility] 05-10-2022 09:30-0500 Body temperature 98.29 [degF] Owen Rivas MD Work Phone: [facility] 05-08-2022 10:29-0500 Body height 149.9 cm Nel Zayas MD Work Phone: [facility] 05-08-2022 10:29-0500 Body weight 50.8 kg Nel Zayas MD Work Phone: [facility] 05-08-2022 10:29-0500 Diastolic blood pressure 55 mm[Hg] Nel Zayas MD Work Phone: [facility] 05-08-2022 10:29-0500 Heart rate 53 /min Nel Zayas MD Work Phone: [facility] 05-08-2022 10:29-0500 Systolic blood pressure 148 mm[Hg] Nel Zayas MD Work Phone: [facility] 04-24-2022 13:37-0500 Body temperature 96.1 [degF] Edenilson Nicholson DO Work Phone: [facility] 04-24-2022 13:37-0500 Body weight 51.71 kg Edenilson Nicholson DO Work Phone: [facility] 04-24-2022 13:37-0500 Diastolic blood pressure 64 mm[Hg] Edenilson Nicholson DO Work Phone: [facility] 04-24-2022 13:37-0500 Heart rate 64 /min Edenilson Nicholson DO Work Phone: [facility] 04-24-2022 13:37-0500 Respiratory rate 16 /min Edenilson Nicholson DO Work Phone: [facility] 04-24-2022 13:37-0500 Systolic blood pressure 128 mm[Hg] Edenilson Incholson DO Work Phone: [facility] 04-20-2022 08:49-0500 Body weight 51.35 kg Angeline Cory PLEASURE CRAFT SAILOR.SHIP KEEPER Work Phone: [facility] 04-20-2022 08:49-0500 Diastolic blood pressure 64 mm[Hg] Angeline Cory PLEASURE CRAFT SAILOR.SHIP KEEPER Work Phone: [facility] 04-20-2022 08:49-0500 Heart rate 54 /min Angeline Cory PLEASURE CRAFT SAILOR.SHIP KEEPER Work Phone: [facility] 04-20-2022 08:49-0500 Respiratory rate 16 /min Angeline Cory PLEASURE CRAFT SAILOR.SHIP KEEPER Work Phone: [facility] 04-20-2022 08:49-0500 SaO2% (BldA) [Mass fraction] 99 % Angeline Monterroso PLEASURE CRAFT SAILOR.SHIP KEEPER Work Phone: [facility] 04-20-2022 08:49-0500 Systolic blood pressure 122 mm[Hg] Angeline Monterroso PLEASURE CRAFT SAILOR.SHIP KEEPER Work Phone: [facility] 04-16-2022 09:48-0500 Body height 147.3 cm Mellisatrudy Saeedk DO Work Phone: [facility] 04-16-2022 09:48-0500 Body weight 52.16 kg Mellisa Griselda DO Work Phone: [facility] 04-07-2022 12:59-0500 Body temperature 97.7 [degF] Efra Stinson MD Work Phone: [facility] 04-07-2022 12:59-0500 Body weight 53.71 kg Efra Stinson MD Work Phone: [facility] 04-07-2022 12:59-0500 Diastolic blood pressure 82 mm[Hg] Efra Stinson MD Work Phone: [facility] 04-07-2022 12:59-0500 Heart rate 66 /min Efra Stinson MD Work Phone: [facility] 04-07-2022 12:59-0500 Respiratory rate 18 /min Efra Stinson MD Work Phone: [facility] 04-07-2022 12:59-0500 SaO2% (BldA) [Mass fraction] 99 % Efra Stinson MD Work Phone: [facility] 04-07-2022 12:59-0500 Systolic blood pressure 124 mm[Hg] Efra Stinson MD Work Phone: [facility] 03-05-2022 13:21-0500 Body temperature 97.5 [degF] Laisha DAVIS-Mukund Work Phone: [facility] 03-05-2022 13:21-0500 Body weight 53.07 kg Laisha DAVIS-Mukund Work Phone: [facility] 03-05-2022 13:21-0500 Diastolic blood pressure 60 mm[Hg] Laisha Athy PA-C Work Phone: [facility] 03-05-2022 13:21-0500 Heart rate 66 /min Laisha Athy PA-C Work Phone: [facility] 03-05-2022 13:21-0500 Respiratory rate 16 /min Laisha Athy PA-C Work Phone: [facility] 03-05-2022 13:21-0500 SaO2% (BldA) [Mass fraction] 100 % Laisha Athy PA-C Work Phone: [facility] 03-05-2022 13:21-0500 Systolic blood pressure 122 mm[Hg] Laisha Athy PA-C Work Phone: [facility] 02-16-2022 08:03-0500 Body height 147.3 cm Lynne Coyner PLEASURE CRAFT SAILOR.SHIP KEEPER Work Phone: [facility] 02-16-2022 08:03-0500 Body weight 53.07 kg Lynne Coyner PLEASURE CRAFT SAILOR.SHIP KEEPER Work Phone: [facility] 02-14-2022 09:18-0500 Body temperature 97 [degF] Edenilson Nicholson DO Work Phone: [facility] 02-14-2022 09:18-0500 Body weight 53.07 kg Edenilson Nicholson DO Work Phone: [facility] 02-14-2022 09:18-0500 Diastolic blood pressure 60 mm[Hg] Edenilson Nicholson DO Work Phone: [facility] 02-14-2022 09:18-0500 Heart rate 64 /min Edenilson Nicholson DO Work Phone: [facility] 02-14-2022 09:18-0500 Respiratory rate 16 /min Edenilson Nicholson DO Work Phone: [facility] 02-14-2022 09:18-0500 Systolic blood pressure 120 mm[Hg] Edenilson Nicholson DO Work Phone: [facility] 02-10-2022 15:23-0500 Body temperature 98.29 [degF] [facility] PLEASURE CRAFT SAILOR.SHIP KEEPER Work Phone: [facility] 02-10-2022 15:23-0500 Body weight 54.8 kg [facility] PLEASURE CRAFT SAILOR.SHIP KEEPER Work Phone: [facility] 02-10-2022 15:23-0500 Diastolic blood pressure 68 mm[Hg] Johnie Pendlebury PLEASURE CRAFT SAILOR.SHIP KEEPER Work Phone: [facility] 02-10-2022 15:23-0500 Heart rate 58 /min [facility] PLEASURE CRAFT SAILOR.SHIP KEEPER Work Phone: [facility] 02-10-2022 15:23-0500 Respiratory rate 18 /min [facility] PLEASURE CRAFT SAILOR.SHIP KEEPER Work Phone: [facility] 02-10-2022 15:23-0500 SaO2% (BldA) [Mass fraction] 100 % [facility] PLEASURE CRAFT SAILOR.SHIP KEEPER Work Phone: [facility] 02-10-2022 15:23-0500 Systolic blood pressure 112 mm[Hg] [facility] PLEASURE CRAFT SAILOR.SHIP KEEPER Work Phone: [facility] 01-22-2022 13:50-0500 Body temperature 96.4 [degF] Edenilson Nicholson DO Work Phone: [facility] 01-22-2022 13:50-0500 Body weight 53.07 kg Edenilson Nicholson DO Work Phone: [facility] 01-22-2022 13:50-0500 Diastolic blood pressure 60 mm[Hg] Edenilson Nicholson DO Work Phone: [facility] 01-22-2022 13:50-0500 Heart rate 60 /min Edenilson Nicholson DO Work Phone: [facility] 01-22-2022 13:50-0500 Respiratory rate 16 /min Edenilson Nicholson DO Work Phone: [facility] 01-22-2022 13:50-0500 Systolic blood pressure 110 mm[Hg] Edenilson Nicholson DO Work Phone: [facility] 01-12-2022 14:07-0500 Body temperature 98.01 [degF] Claudia Jones APRN.SHIP KEEPER Work Phone: [facility] 01-12-2022 14:07-0500 Body weight 54.52 kg Claudia Jones APRN.SHIP KEEPER Work Phone: [facility] 01-12-2022 14:07-0500 Diastolic blood pressure 74 mm[Hg] Claudia Jones APRN.SHIP KEEPER Work Phone: [facility] 01-12-2022 14:07-0500 Heart rate 68 /min Claudia Jones APRN.SHIP KEEPER Work Phone: [facility] 01-12-2022 14:07-0500 Respiratory rate 16 /min Claudia Jones APRN.SHIP KEEPER Work Phone: [facility] 01-12-2022 14:07-0500 SaO2% (BldA) [Mass fraction] 97 % Claudia Jones APRN.SHIP KEEPER Work Phone: [facility] 01-12-2022 14:07-0500 Systolic blood pressure 132 mm[Hg] Claudia Jones APRN.SHIP KEEPER Work Phone: [facility] 12-06-2021 10:34-0400 Body height 147.3 cm Juan Lagos MD Work Phone: [facility] 12-06-2021 10:34-0400 Body temperature 97.5 [degF] Juan Lagos MD Work Phone: [facility] 12-06-2021 10:34-0400 Body weight 52.71 kg Juan Lagos MD Work Phone: [facility] 12-06-2021 10:34-0400 Diastolic blood pressure 69 mm[Hg] Juan Lagos MD Work Phone: [facility] 12-06-2021 10:34-0400 Heart rate 63 /min Juan Lagos MD Work Phone: [facility] 12-06-2021 10:34-0400 SaO2% (BldA) [Mass fraction] 100 % Juan Lagos MD Work Phone: [facility] 12-06-2021 10:34-0400 Systolic blood pressure 137 mm[Hg] Juan Lagos MD Work Phone: [facility] 12-05-2021 14:29-0400 Body temperature 96.6 [degF] Edenilson Nicholson DO Work Phone: [facility] 12-05-2021 14:29-0400 Body weight 53.07 kg Edenilson Nicholson DO Work Phone: [facility] 12-05-2021 14:29-0400 Diastolic blood pressure 60 mm[Hg] Edenilson Nicholson DO Work Phone: [facility] 12-05-2021 14:29-0400 Heart rate 56 /min Edenilson Nicholson DO Work Phone: [facility] 12-05-2021 14:29-0400 Respiratory rate 16 /min Edenilson Nicholson DO Work Phone: [facility] 12-05-2021 14:29-0400 Systolic blood pressure 116 mm[Hg] Edenilson Nicholson DO Work Phone: [facility] 10-27-2021 13:13-0400 Body weight 51.53 kg Angeline Cory PLEASURE CRAFT SAILOR.SH[employer] KEEPER Work Phone: [facility] 10-27-2021 13:13-0400 Diastolic blood pressure 76 mm[Hg] Angeline Cory PLEASURE CRAFT SAILOR.SHIP KEEPER Work Phone: [facility] 10-27-2021 13:13-0400 Heart rate 60 /min Angeline Cory PLEASURE CRAFT SAILOR.SHIP KEEPER Work Phone: [facility] 10-27-2021 13:13-0400 Respiratory rate 16 /min Angeline Cory PLEASURE CRAFT SAILOR.SHIP KEEPER Work Phone: [facility] 10-27-2021 13:13-0400 SaO2% (BldA) [Mass fraction] 97 % Angeline Cory PLEASURE CRAFT SAILOR.SHIP KEEPER Work Phone: [facility] 10-27-2021 13:13-0400 Systolic blood pressure 116 mm[Hg] Angeline Cory PLEASURE CRAFT SAILOR.SHIP KEEPER Work Phone: [facility] 09-12-2021 11:30-0400 Diastolic blood pressure 64 mm[Hg] Charissa Haagen PLEASURE CRAFT SAILOR.SHIP KEEPER Work Phone: [facility] 09-12-2021 11:30-0400 Heart rate 51 /min Charissa Haagen PLEASURE CRAFT SAILOR.SHIP KEEPER Work Phone: [facility] 09-12-2021 11:30-0400 Respiratory rate 18 /min Charissa Haagen PLEASURE CRAFT SAILOR.SHIP KEEPER Work Phone: [facility] 09-12-2021 11:30-0400 SaO2% (BldA) [Mass fraction] 98 % Charissa Haagen PLEASURE CRAFT SAILOR.SHIP KEEPER Work Phone: [facility] 09-12-2021 11:30-0400 Systolic blood pressure 128 mm[Hg] Charissa Haagen PLEASURE CRAFT SAILOR.SHIP KEEPER Work Phone: [facility] 07-20-2021 12:10-0400 Body weight 51.71 kg Angeline Cory PLEASURE CRAFT SAILOR.SHIP KEEPER Work Phone: [facility] 07-20-2021 12:10-0400 Diastolic blood pressure 68 mm[Hg] Angeline Cory PLEASURE CRAFT SAILOR.SHIP KEEPER Work Phone: [facility] 07-20-2021 12:10-0400 Heart rate 59 /min Angeline Cory PLEASURE CRAFT SAILOR.SHIP KEEPER Work Phone: [facility] 07-20-2021 12:10-0400 SaO2% (BldA) [Mass fraction] 97 % Angeline Cory PLEASURE CRAFT SAILOR.SHIP KEEPER Work Phone: [facility] 07-20-2021 12:10-0400 Systolic blood pressure 108 mm[Hg] Angeline Monterroso PLEASURE CRAFT SAILOR.SHIP KEEPER Work Phone: [facility] 06-27-2021 10:17-0400 Body weight 51.71 kg Edenilson Nicholson DO Work Phone: [facility] 06-27-2021 10:17-0400 Diastolic blood pressure 70 mm[Hg] Edenilson Nicholson DO Work Phone: [facility] 06-27-2021 10:17-0400 Heart rate 51 /min Edenilson Nicholson DO Work Phone: [facility] 06-27-2021 10:17-0400 Respiratory rate 14 /min Edenilson Nicholson DO Work Phone: [facility] 06-27-2021 10:17-0400 SaO2% (BldA) [Mass fraction] 99 % Edenilson Nicholson DO Work Phone: [facility] 06-27-2021 10:17-0400 Systolic blood pressure 116 mm[Hg] Edenilson Nicholson DO Work Phone: [facility] 06-09-2021 14:03-0400 Body weight 52.16 kg Charissa Haching PLEASURE CRAFT SAILOR.SHIP KEEPER Work Phone: [facility] 06-09-2021 14:03-0400 Diastolic blood pressure 57 mm[Hg] Charissa Haagen PLEASURE CRAFT SAILOR.SHIP KEEPER Work Phone: [facility] 06-09-2021 14:03-0400 Heart rate 50 /min Charissa Haagen PLEASURE CRAFT SAILOR.SHIP KEEPER Work Phone: [facility] 06-09-2021 14:03-0400 Respiratory rate 12 /min Charissa Haagen PLEASURE CRAFT SAILOR.SHIP KEEPER Work Phone: [facility] 06-09-2021 14:03-0400 SaO2% (BldA) [Mass fraction] 94 % Charissa Haagen PLEASURE CRAFT SAILOR.SHIP KEEPER Work Phone: [facility] 06-09-2021 14:03-0400 Systolic blood pressure 136 mm[Hg] Charissa Haagen PLEASURE CRAFT SAILOR.SHIP KEEPER Work Phone: [facility] 06-07-2021 10:01-0400 Body temperature 97.11 [degF] Efra Stinson MD Work Phone: [facility] 06-07-2021 10:01-0400 Body weight 52.44 kg Efra Stinson MD Work Phone: [facility] 06-07-2021 10:01-0400 Diastolic blood pressure 68 mm[Hg] Efra Stinson MD Work Phone: [facility] 06-07-2021 10:01-0400 Heart rate 63 /min Efra Stinson MD Work Phone: [facility] 06-07-2021 10:01-0400 Respiratory rate 18 /min fEra Stinson MD Work Phone: [facility] 06-07-2021 10:01-0400 SaO2% (BldA) [Mass fraction] 98 % Efra Stinson MD Work Phone: [facility] 06-07-2021 10:01-0400 Systolic blood pressure 114 mm[Hg] Efra Stinson MD Work Phone: [facility] Encounters Encounter Date Encounter Type Care Provider Facility Start: 08-08-2024 End: 08-08-2024 Patient encounter procedure America Mendez PLEASURE CRAFT SAILOR.SHIP KEEPER Work Phone: [facility] Comment on above: Insect bite of face, initial encounter (Primary Dx) Start: 08-08-2024 End: 08-08-2024 Telephone encounter Edenilson Nicholson DO Work Phone: [facility] [place] Comment on above: Patient Question Start: 08-08-2024 End: 08-08-2024 ambulatory EDENILSON NICHOLSON Facility:[facility] Start: 08-05-2024 End: 08-06-2024 Follow-up encounter Kathryn Pearson PLEASURE CRAFT SAILOR.SHIP KEEPER Work Phone: [facility] Comment on above: Results Start: 08-04-2024 End: 08-04-2024 ambulatory KYM LEWIS Facility:[facility] Start: 08-03-2024 End: 08-03-2024 Telephone encounter Roger Romero MD Work Phone: Pain Management Comment on above: Results (Lumbar MRI) Start: 07-29-2024 ambulatory EDENILSON NICHOLSON Facil ity:[facility] Start: 07-29-2024 End: 07-29-2024 Subsequent hospital visit by physician Mri Radio [facility] (I-Stat/1.5t) Work Phone: Radiology Comment on above: Spinal stenosis of l umbar region, unspecified whether neurogenic claudication present [M48.061] Start: 07-23-2024 End: 07-23-2024 ambulatory ANGELINE MONTERROSO Facility:[facility] Start: 06-30-2024 End: 06-30-2024 Office outpatient visit 25 minutes Lani Arndt PA-C Work Phone: [facility] Comment on above: Sprain of ligament o f right ankle, initial encounter (Primary Dx) Start: 06-30-2024 End: 06-30-2024 Subsequent hospital visit by physician Xr [facility] [place] Work Phone: Radiology Comment on above: Sprain of ligament o f right ankle, initial encounter [S93.401A] Start: 06-30-2024 End: 06-30-2024 ambulatory EDENILSON L NICHOLSON Facility:[facility] Start: 06-26-2024 End: 06-26-2024 ambulatory Edenilson Nicholson Facility:[facility] Start: 06-24-2024 End: 06-24-2024 Follow-up encounter Edenilson Greenrison DO Work Phone: [facility] Start: 06-09-2024 End: 06-09-2024 Follow-up encounter Angeline Monterroso APRN.CNP Work Phone: [facility] Comment on above: Results Start: 06-08-2024 End: 06-08-2024 ambulatory EDENILSON L NICHOLSON Facility:[facility] Start: 06-08-2024 End: 06-08-2024 Patient encounter procedure Edenilson L Nicholson DO Work Phone: [facility] Comment on above: Hypertension, essent ial (Primary Dx); Abnormal findings in stool; JOSHUA (generalized anxiety disorder); Chronic left-sided low back pain without sciatica; Dementia without behavioral disturbance (HCC); Hyperlipidemia, mixed; Epigastric abdominal pain; IFG (impaired fasting glucose); Psoriatic arthritis (HCC) Start: 06-03-2024 End: 06-03-2024 Refill Edenilson Nicholson DO Work Phone: [facility] Comment on above: Refill Request Start: 06-02-2024 End: 06-02-2024 Subsequent hospital visit by physician Xr [facility] [place] Work Phone: Radiology Comment on above: Chronic left-sided l ow back pain without sciatica [M54.50, G89.29] Start: 06-02-2024 End: 06-02-2024 ambulatory [facility] Facility:[facility] Start: 06-02-2024 End: 06-02-2024 Office outpatient visit 25 minutes Angeline Monterroso PLEASURE CRAFT SAILOR.SHIP KEEPER Work Phone: [facility] Comment on above: Chronic left-sided l ow back pain without sciatica (Primary Dx); JOSHUA (generalized anxiety disorder); Acute left-sided low back pain without sciatica; Nausea and vomiting, unspecified vomiting type; Pancreatic cyst (HCC); Left medial tibial stress syndrome, initial encounter Start: 05-15-2024 End: 05-15-2024 Emergency department patient visit EDENILSON NICHOLSON Facility:[facility] Start: 05-08-2024 End: 05-08-2024 Follow-up encounter Kandi Park PLEASURE CRAFT SAILOR.SHIP KEEPER Work Phone: [facility] [place] Start: 05-06-2024 End: 05-06-2024 ambulatory EDENILSON SCHULTZON Facility:[facility] Start: 05-06-2024 End: 05-06-2024 Office outpatient visit 15 minutes Kandi Park PLEASURE CRAFT SAILOR.SHIP KEEPER Work Phone: [facility] Comment on above: Urinary frequency (P rimary Dx) Start: 04-30-2024 End: 04-30-2024 ambulatory EDENILSON L NICHOLSON Facility:[facility] Start: 04-30-2024 End: 04-30-2024 Subsequent hospital visit by physician Mri Radio [facility] (I-Stat/1.5t) Work Phone: Radiology Start: 04-29-2024 End: 04-29-2024 Refill Edenilson L Nicholson DO Work Phone: [facility] [place] Comment on above: Refill Request Start: 04-27-2024 End: 04-27-2024 Follow-up encounter Sherrie Gonzales APRN.SHIP KEEPER Work Phone: [facility] Start: 04-27-2024 End: 04-27-2024 ambulatory EDENILSON L NICHOLSON Facility:[facility] Start: 04-27-2024 End: 04-27-2024 Subsequent hospital visit by physician Xr [facility] [place] Work Phone: Radiology Comment on above: Acute cough [R05.1] Start: 04-26-2024 End: 04-26-2024 ambulatory EDENILSON L NICHOLSON Facility:[facility] Start: 04-26-2024 End: 04-26-2024 Patient encounter procedure Sherrie Gonzales APRN.SHIP KEEPER Work Phone: [facility] Comment on above: Urinary frequency (P rimary Dx); Acute cough Start: 04-16-2024 End: 04-17-2024 Follow-up encounter To Sibley MD Work Phone: [facility] [place] Start: 04-15-2024 End: 04-15-2024 Telephone encounter To Sibley MD Work Phone: [facility] [place] Comment on above: Patient Update; Appo intment Start: 04-15-2024 End: 04-15-2024 ambulatory EDENILSON L NICHOLSON Facility:[facility] Start: 04-15-2024 End: 04-15-2024 Patient encounter procedure To Sibley MD Work Phone: [facility] [place] Comment on above: Productive cough (Pr imary Dx) Start: 04-06-2024 End: 04-06-2024 ambulatory Kathryn Flores PT [facility] Comment on above: Acute left-sided low back pain without sciatica Start: 04-06-2024 End: 04-06-2024 ambulatory [facility] Facility:[facility] Start: 04-02-2024 End: 04-02-2024 Refill Edenilson Nicholson DO Work Phone: [facility] [place] Comment on above: Refill Request Start: 03-25-2024 End: 03-25-2024 Telephone encounter Edenilson Schultzon DO Work Phone: Internal Medicine [place] Comment on above: Insurance Authorizat ion Start: 03-25-2024 End: 03-25-2024 ambulatory [facility] Facility:[facility] Start: 03-25-2024 End: 03-25-2024 Office outpatient visit 15 minutes Angeline Monterroso PLEASURE CRAFT SAILOR.SHIP KEEPER Work Phone: [facility] [place] Comment on above: Acute left-sided low back pain without sciatica (Primary Dx); JOSHUA (generalized anxiety disorder) Start: 03-23-2024 End: 03-23-2024 Telephone encounter Edenilson Schultzon DO Work Phone: [facility] [place] Comment on above: urine problem Start: 03-23-2024 End: 03-23-2024 Emergency department patient visit EDENILSON Fabio GREENNICHOLSON Facility:[facility] Start: 02-05-2024 End: 02-05-2024 ambulatory [facility] Facility:[facility] Start: 01-25-2024 End: 01-25-2024 ambulatory EDENILSON L BHARAT Facility:[facility] Start: 01-25-2024 End: 01-25-2024 Patient encounter procedure America Mendez PLEASURE CRAFT SAILOR.SHIP KEEPER Work Phone: [facility] Comment on above: Mouth sore (Primary Dx) Start: 01-23-2024 End: 01-27-2024 Telephone encounter Edenilson Fabio GreenNicholson DO Work Phone: [facility] [place] Comment on above: Patient Update Start: 01-22-2024 End: 01-22-2024 ambulatory EDENILSON L NICHOLSON Facility:[facility] Start: 01-22-2024 End: 01-22-2024 Patient encounter procedure Edenilson Fabio GreenNicholson DO Work Phone: [facility] [place] Comment on above: Fungal nail infectio n (Primary Dx); Psoriatic arthritis (HCC); Hypertension, essential; JOSHUA (generalized anxiety disorder); Dementia without behavioral disturbance (HCC); Abdominal discomfort Start: 01-10-2024 End: 01-15-2024 Refill Edenilson L Nicholson DO Work Phone: [facility] [place] Comment on above: Refill Request Infection Patient Question Start: 01-09-2024 End: 01-09-2024 ambulatory [facility] Facility:[facility] Start: 01-09-2024 End: 01-09-2024 Office outpatient visit 40 minutes Angeline Monterroso PLEASURE CRAFT SAILOR.SHIP KEEPER Work Phone: [facility] [place] Comment on above: Urinary frequency (P rimary Dx); Psoriatic arthritis (HCC); Open wound of right heel, subsequent encounter Start: 01-03-2024 End: 01-03-2024 ambulatory EDENILSON GREENRISON Facility:[facility] Start: 01-03-2024 End: 01-03-2024 Patient encounter procedure Kathryn Pearson PLEASURE CRAFT SAILOR.SHIP KEEPER Work Phone: [facility] Comment on above: Urination frequency (Primary Dx); Rash Start: 01-03-2024 End: 01-03-[facility] Start: 12-27-2023 End: 12-27-2023 Refill Edenilson Greenrison DO Work Phone: [facility] Comment on above: Refill Request Start: 12-24-2023 End: 12-24-2023 ambulatory EDENILSON L NICHOLSON Facility:[facility] Start: 12-24-2023 End: 12-24-2023 Patient encounter procedure Abigail Balderas PLEASURE CRAFT SAILOR.SHIP KEEPER Work Phone: [facility] Comment on above: Urinary frequency (P rimary Dx); Skin infection Start: 12-24-2023 End: 12-24-2023 Telephone encounter Edenilson Nicholson DO Work Phone: [facility] [place] Comment on above: Patient Call Start: 12-16-2023 End: 12-16-2023 ambulatory EDENILSON NICHOLSON Facility:[facility] Start: 12-09-2023 End: 12-09-2023 ambulatory Dina Olea Facility:[facility] Start: 12-05-2023 End: 12-05-2023 ambulatory KINGA A SUPPAN Facility:[facility] Start: 12-05-2023 End: 12-05-2023 Office outpatient visit 15 minutes Kinga A Suppan PLEASURE CRAFT SAILOR.SHIP KEEPER Work Phone: [facility] [place] Comment on above: Psoriatic arthritis (HCC) (Primary Dx); Psoriasis Start: 12-04-2023 End: 12-04-2023 Telephone encounter Edenilson Nicholson DO Work Phone: [facility] [place] Comment on above: Patient Update Start: 11-28-2023 End: 11-28-2023 Telephone encounter Kinga A Suppan PLEASURE CRAFT SAILOR.SHIP KEEPER Work Phone: [facility] [place] Start: 11-25-2023 End: 11-25-2023 Subsequent hospital visit by physician Nalini [facility] Work Phone: Radiology Comment on above: Pain in lateral port ion of right ankle [M25.571] Start: 11-25-2023 End: 11-25-2023 ambulatory EDENILSON NICHOLSON Facility:[facility] Start: 11-25-2023 End: 11-25-2023 Office outpatient visit 15 minutes Kinga A Suppan PLEASURE CRAFT SAILOR.SHIP KEEPER Work Phone: [facility] [place] Comment on above: Pain in lateral port ion of right ankle (Primary Dx) Start: 11-18-2023 End: 11-18-2023 Refill Edenilson Nicholson DO Work Phone: [facility] [place] Comment on above: Refill Request Start: 11-13-2023 End: 11-13-2023 ambulatory ANAMARIA HUGHESA Facility:[facility] Start: 11-13-2023 End: 11-13-2023 Patient encounter procedure Anamaria Paul MD Work Phone: Gastroenterology Comment on above: Pancreatic cyst (Sarah ines Dx) Start: 11-08-2023 End: 11-08-2023 Refill Edenilson Fabio GreenNicholson DO Work Phone: [facility] [place] Comment on above: Refill Request Start: 10-29-2023 End: 10-29-2023 Telephone encounter Kym DAVIS Work Phone: [facility] Comment on above: Results Start: 10-28-2023 End: 10-28-2023 ambulatory EDENILSON GREENRISON Facility:[facility] Start: 10-28-2023 End: 10-28-2023 Patient encounter procedure Kym DAVIS Work Phone: [facility] Comment on above: Acute cough (Primary Dx); Exposure to COVID-19 virus Start: 10-24-2023 End: 10-24-2023 Telephone encounter Anamaria Paul MD Work Phone: Gastroenterology Comment on above: Appointment (Formerly named [facility]) Start: 10-22-2023 End: 10-22-2023 ambulatory EDENILSON GREENRISON Facility:[facility] Start: 10-22-2023 End: 10-22-2023 Patient encounter procedure Edenilson Greenrison DO Work Phone: [facility] [place] Comment on above: JOSHUA (generalized anx iety disorder) (Primary Dx); Bee sting, accidental or unintentional, initial encounter; Osteoarthritis of spine with radiculopathy, cervical region; Radiculopathy, cervical region; Hypertension, essential; Hyperlipidemia, mixed; Dementia without behavioral disturbance (HCC) Start: 10-22-2023 End: 10-22-2023 ambulatory EDENILSON L NICHOLSON Facility:[facility] Start: 09-24-2023 End: 12-02-2023 Telephone encounter Edenilson Schultzon DO Work Phone: [facility] [place] Comment on above: ER F/U; Nausea & Vom iting Start: 09-23-2023 End: 09-23-2023 Emergency department patient visit MAXIMO PEÑA Facility:[facility] Start: 09-22-2023 ambulatory Julius Jenkins RN NURSE O N CALL Comment on above: Abdominal Pain Start: 09-18-2023 End: 09-18-2023 Patient encounter procedure Edenilson Nicholson DO Work Phone: [facility] Comment on above: Dementia without beh avioral disturbance (HCC) (Primary Dx); JOSHUA (generalized anxiety disorder); Abdominal discomfort; Hypertension, essential Start: 09-18-2023 End: 09-18-2023 ambulatory EDENILSON NICHOLSON Facility:[facility] Start: 08-19-2023 End: 08-19-2023 ambulatory Edenilson Nicholson Facility:[facility] Start: 08-17-2023 ambulatory Estrellita Morton RN NURS E BARREL DEDENTING MACHINE OPERATOR Comment on above: Question Start: 08-09-2023 Refill Edenilson rivera DO Work Phone: [facility] Comment on above: Refill Request Start: 08-02-2023 Refill Edenilson rivera DO Work Phone: [facility] Comment on above: Refill Request Start: 08-01-2023 Telephone encounter Edenilson giordano DO Work Phone: [facility] Comment on above: Refill Request; requ esting medication no longer on list Start: 07-16-2023 End: 07-16-2023 Patient encounter procedure Angeline Monterroso APRN.SHIP KEEPER Work Phone: [facility] Comment on above: JOSHUA (generalized anx iety disorder) (Primary Dx); Stress; Abdominal discomfort; RUQ abdominal pain Start: 07-08-2023 Telephone encounter Chapis ervin APRN.SHIP KEEPER [facility] Comment on above: Results Start: 07-04-2023 ambulatory Edenilson rivera DO Work Phone: [facility] Comment on above: Urinary Symptoms Start: 07-04-2023 End: 07-04-2023 Patient encounter procedure Chapis Valle APRN.SHIP KEEPER Work Phone: [facility] Comment on above: UTI symptoms (Primar y Dx) Start: 06-28-2023 Telephone encounter Angeline Roberto PLEASURE CRAFT SAILOR.SHIP KEEPER Work Phone: [facility] Comment on above: Results Start: 06-27-2023 End: 06-27-2023 Subsequent hospital visit by physician Nalini [facility] [place] Work Phone: Radiology Comment on above: Acute cough [R05.1] Start: 06-27-2023 End: 06-27-2023 Patient encounter procedure Angeline Monterroso PLEASURE CRAFT SAILOR.SHIP KEEPER Work Phone: [facility] Comment on above: Persistent cough (Pr imary Dx); Acute cough; Decreased lung sounds Start: 06-26-2023 ambulatory Edenilson rivera DO Work Phone: [facility] Comment on above: Medication Problem Start: 06-26-2023 Telephone encounter Edenilson giordano DO Work Phone: [facility] Comment on above: Opened In Error Start: 06-12-2023 End: 06-12-2023 Patient encounter procedure Angeline Monterroso PLEASURE CRAFT SAILOR.SHIP KEEPER Work Phone: [facility] Comment on above: Abdominal discomfort (Primary Dx); Hypertension, essential; Dementia without behavioral disturbance (HCC); Oral lesion Start: 06-08-2023 ambulatory Sowmya Haywood RN NURS E BARREL DEDENTING MACHINE OPERATOR Comment on above: Information Start: 06-03-2023 Telephone encounter Edenilson giordano DO Work Phone: [facility] Comment on above: Patient Update; Medi cation Problem Start: 05-27-2023 End: 05-27-2023 ambulatory [facility] Work Phone: Start: 05-27-2023 End: 05-27-2023 Patient encounter procedure [facility] Work Phone: Start: 05-24-2023 Telephone encounter Edenilson giordano DO Work Phone: [facility] Start: 05-22-2023 ambulatory EDENILSON Uriarte ity:[id number] Start: 05-22-2023 End: 05-22-2023 Subsequent hospital visit by physician Mri [facility] Work Phone: [facility] Comment on above: Pancreas cyst [K86.2 ] Start: 05-08-2023 [facility] Start: 05-08-2023 Telephone encounter Angeline Roberto PLEASURE CRAFT SAILOR.SHIP KEEPER Work Phone: [facility] Comment on above: Results; Appointment ; Patient Question Start: 05-08-2023 End: 05-08-2023 Subsequent hospital visit by physician [facility] Comment on above: Elevated lipase [R74 .8] Start: 05-08-2023 End: 05-08-2023 Patient encounter procedure Angeline Monterroso PLEASURE CRAFT SAILOR.SHIP KEEPER Work Phone: [facility] Comment on above: Elevated lipase (Sarah ines Dx); Bloating; Upper abdominal pain; Nausea Start: 05-06-2023 Telephone encounter Mellisa collins DO Work Phone: Colorectal Surgery Comment on above: Combination Technician - O ther Start: 04-17-2023 End: 04-17-2023 Patient encounter procedure Edenilson Nicholson DO Work Phone: [facility] Comment on above: Hypertension, essent ial (Primary Dx); JOSHUA (generalized anxiety disorder); Dementia without behavioral disturbance (HCC); Rectal prolapse; Short-term memory loss Start: 03-11-2023 End: 03-11-2023 ambulatory [facility] Work Phone: Start: 03-11-2023 End: 03-11-2023 Patient encounter procedure [facility] Work Phone: Start: 02-14-2023 Telephone encounter Nel leung MD Work Phone: [facility] Comment on above: Schedule Surgery Start: 02-13-2023 Telephone encounter Mellisa collins DO Work Phone: Colorectal Surgery Comment on above: Combination Technician - O ther Start: 02-06-2023 Refill Edenilson rivera DO Work Phone: [facility] [place] Comment on above: Refill Request Start: 02-05-2023 Refill Edenilson rivera DO Work Phone: [facility] [place] Comment on above: Refill Request Start: 01-28-2023 End: 01-28-2023 Patient encounter procedure Kandi Park PLEASURE CRAFT SAILOR.SHIP KEEPER Work Phone: [facility] [place] Comment on above: Visit for suture rem oval (Primary Dx) Start: 01-23-2023 Telephone encounter Kandi rivera PLEASURE CRAFT SAILOR.SHIP KEEPER Work Phone: [facility] [place] Start: 01-21-2023 End: 01-21-2023 Patient encounter procedure Kandi Park PLEASURE CRAFT SAILOR.SHIP KEEPER Work Phone: [facility] [place] Comment on above: Fall, subsequent enc ounter (Primary Dx); Urinary frequency; Laceration of left eyebrow, subsequent encounter Start: 01-20-2023 ambulatory Mellisa Hathaway RN NURS E BARREL DEDENTING MACHINE OPERATOR Comment on above: Question Start: 01-19-2023 End: 01-19-2023 Emergency department patient visit DR MIRA VILLATOOR DO Facility:[facility] Start: 01-19-2023 End: 01-19-2023 Emergency department patient visit DR MIRA VILLATORO DO [facility] Start: 01-16-2023 Telephone encounter Edenilson giordano DO Work Phone: [facility] [place] Comment on above: Results Start: 01-14-2023 End: 01-14-2023 Patient encounter procedure Michael Del Castillo PA-C Work Phone: Orthopaedics Comment on above: Pain due to knee mt nt prosthesis, subsequent encounter (Primary Dx); Status post total left knee replacement Start: 01-14-2023 Telephone encounter Nel leung MD Work Phone: [facility] Comment on above: Schedule Surgery Start: 01-11-2023 End: 01-11-2023 Office outpatient visit 15 minutes Michael Del Castillo PA-C Work Phone: Orthopaedics Comment on above: Pain due to knee mt nt prosthesis, initial encounter [facility]) (Primary Dx); Status post total left knee replacement Start: 01-11-2023 End: 01-11-2023 Subsequent hospital visit by physician [facility] Khloe Sullivan Work Phone: Radiology Comment on above: Left knee pain, unsp ecified chronicity [M25.562] Start: 01-09-2023 Telephone encounter Nel leung MD Work Phone: [facility] Comment on above: Schedule Surgery Start: 01-02-2023 Telephone encounter Nel leung MD Work Phone: [facility] Comment on above: pre op and post op a ppts Start: 12-27-2022 End: 12-27-2022 Subsequent hospital visit by physician Mri Radio [facility] (I-Stat/1.5t) Work Phone: Radiology Comment on above: Cystic mass of pancr eas [K86.2] Start: 12-11-2022 End: 12-11-2022 ambulatory [facility] Work Phone: Start: 12-11-2022 End: 12-11-2022 Patient encounter procedure [facility] [place] Work Phone: Start: 12-10-2022 Telephone encounter Angeline Roberto APRN.CNP Work Phone: [facility] [place] Comment on above: Results Start: 11-26-2022 End: 11-26-2022 Orders Only Nel Zayas MD Work Phone: Urogynecology Comment on above: Vaginal vault prolap se (Primary Dx); Rectocele; Cystocele, midline; Urinary incontinence, urge; Overactive bladder; Rectal prolapse; Preoperative examination Osteopenia, senile [ M85.80] Start: 11-26-2022 Preprocedural examination done Nel Zayas MD Work Phone: [facility] Work Phone: Start: 11-22-2022 Telephone encounter Mellisa collins DO Work Phone: Colorectal Surgery Comment on above: Combination Technician - O ther Start: 11-20-2022 End: 11-20-2022 Subsequent hospital visit by physician [facility] (I-Stat) Work Phone: Cat Scan Comment on above: Chronic cough [R05.3 ] Start: 11-19-2022 End: 11-19-2022 Patient encounter procedure Mellisa Waltonvak DO Work Phone: Colorectal Surgery Comment on above: Rectocele (Primary D x) Start: 11-15-2022 Telephone encounter Abigail Barton APRN.CNP Work Phone: [facility] Comment on above: Results Start: 11-14-2022 End: 11-14-2022 Patient encounter procedure Edenilson Fabio Schultzon DO Work Phone: Family [facility] [place] Comment on above: Recurrent UTI (urina ry tract infection) (Primary Dx); Osteopenia, senile; Chronic cough; Rales; Psoriatic arthritis (HCC); Chronic obstructive pulmonary disease, unspecified COPD type ([facility]); Rectal prolapse Start: 11-13-2022 End: 11-13-2022 Office outpatient visit 25 minutes Johnie Aguirre APRN.KEVIN Work Phone: [facility] Comment on above: Urinary frequency (P rimary Dx) Start: 11-07-2022 Refill Edenilson rivera DO Work Phone: Family [facility] [place] Comment on above: Refill Request Start: 10-12-2022 ambulatory Edenilson rivera DO Work Phone: [facility] [place] Comment on above: Chest Pain Start: 10-12-2022 End: 10-12-2022 Patient encounter procedure Cristhian Rodney PA-C Work Phone: [facility] [place] Comment on above: Viral bronchitis (Pr imary Dx); Chronic obstructive pulmonary disease, unspecified COPD type (HCC) Start: 10-06-2022 ambulatory Silva ACUÑA BARREL DEDENTING MACHINE OPERATOR Comment on above: Medication Problem Start: 09-28-2022 Telephone encounter Nubia Roger pollard PLEASURE CRAFT SAILOR.SHIP KEEPER Work Phone: [facility] Comment on above: Results Start: 09-25-2022 End: 09-25-2022 Subsequent hospital visit by physician Xr [facility] Work Phone: Radiology Comment on above: Acute cough [R05.1] Start: 09-20-2022 ambulatory Estrellita CAMPBELL E BARREL DEDENTING MACHINE OPERATOR Comment on above: Cough Start: 09-20-2022 End: 09-20-2022 Patient encounter procedure Cristhian Rodney PA-C Work Phone: [facility] Comment on above: Acute cough (Primary Dx); Bee sting, accidental or unintentional, initial encounter Start: 09-13-2022 End: 09-13-2022 ambulatory [facility] Work Phone: Start: 09-13-2022 End: 09-13-2022 Patient encounter procedure [facility] Work Phone: Start: 09-03-2022 Telephone encounter Angeline Roberto PLEASURE CRAFT SAILOR.SHIP KEEPER Work Phone: [facility] Comment on above: Results Start: 08-30-2022 Refill Edenilson Lopez nicole DO Work Phone: [facility] Comment on above: Refill Request Start: 08-15-2022 End: 08-15-2022 Subsequent hospital visit by physician [facility] ([facility]) Work Phone: Cat Scan Comment on above: Short-term memory lo ss [R41.3] Start: 08-15-2022 Telephone encounter Edenilson giordano DO Work Phone: [facility] Comment on above: Results Start: 08-01-2022 End: 08-01-2022 Patient encounter procedure Edenilson Nicholson DO Work Phone: [facility] Comment on above: Nasal sore (Primary Dx); JOSHUA (generalized anxiety disorder); Cough, persistent; Short-term memory loss; Word finding difficulty; Rectal prolapse; Chronic obstructive pulmonary disease, unspecified COPD type (HCC); Psoriatic arthritis (HCC) Start: 07-14-2022 End: 07-14-2022 Patient encounter procedure Efra Stinson MD Work Phone: [facility] Comment on above: Rash (Primary Dx); Bug bite, initial encounter Start: 07-11-2022 Refill Edenilson rivera DO Work Phone: [facility] [place] Comment on above: Refill Request Start: 06-27-2022 Telephone encounter Edenilson Fabio giordano DO Work Phone: [facility] [place] Comment on above: Medication Question Start: 06-27-2022 End: 06-27-2022 Patient encounter procedure Angeline Monterroso APRN.SHIP KEEPER Work Phone: [facility] [place] Comment on above: JOSHUA (generalized anx iety disorder) (Primary Dx); Cough, persistent; Pain of right lower extremity; Chronic obstructive pulmonary disease, unspecified COPD type (HCC); Psoriatic arthritis (HCC) Start: 06-25-2022 End: 06-25-2022 Patient encounter procedure [facility] Work Phone: Start: 06-22-2022 ambulatory Edenilson rivera DO Work Phone: [facility] [place] Comment on above: Anxiety Start: 06-16-2022 Telephone encounter Mellisa collins DO Work Phone: Colorectal Surgery Comment on above: Results Start: 06-09-2022 Refill Edenilson rivera DO Work Phone: [facility] [place] Comment on above: Refill Request Start: 05-22-2022 Telephone encounter Mellisa collins DO Work Phone: Colorectal Surgery Comment on above: Combination Technician - O ther Refill Request Start: 05-21-2022 ambulatory Dimple mckeon RN Work Phone: [employer] Comment on above: Community Monitoring Outreach (Enrollment H@H) Start: 05-10-2022 End: 03-09-2023 Subsequent hospital visit by physician Owen Rivas MD Work Phone: Ambulatory Surgery Comment on above: Screening for colon cancer [Z12.11] Start: 05-08-2022 End: 05-08-2022 Patient encounter procedure Mellisa Villalobos DO Work Phone: URO/Gynecology Comment on above: Rectal prolapse (Sarah ines Dx) Rectocele (Primary D x); Other female genital prolapse; Urinary frequency; Vaginal vault prolapse; Cystocele, midline; Urinary incontinence, urge; Overactive bladder; Rectal prolapse Start: 05-07-2022 Chart abstracting Nel Johnson ace, MD Work Phone: URO/Gynecology Start: 05-07-2022 Telephone encounter Edenilson giordano DO Work Phone: [facility] [place] Comment on above: Patient Update Start: 05-03-2022 Telephone encounter Edenilson giordano DO Work Phone: [facility] [place] Comment on above: Medication Question Start: 04-27-2022 Telephone encounter Mellisa collins DO Work Phone: Colorectal Surgery Comment on above: Results Start: 04-24-2022 End: 04-24-2022 Patient encounter procedure Edenilson Nicholson DO Work Phone: [facility] [place] Comment on above: Urinary frequency (P rimary Dx); Prolapse of intestine; Pelvic floor dysfunction in female; Hypertension, essential; Dyslipidemia Start: 04-20-2022 Telephone encounter Mellisa collins DO Work Phone: Colorectal Surgery Comment on above: Combination Technician - O ther Start: 04-20-2022 End: 04-20-2022 Patient encounter procedure Angeline Monterroso APRN.CNP Work Phone: [facility] [place] Comment on above: Urinary frequency (P rimary Dx); Pain in both lower extremities Start: 04-19-2022 ambulatory Edenilson rivera DO Work Phone: [facility] [place] Comment on above: Leg Pain Start: 04-17-2022 Orders Only Nel ordonez MD Work Phone: Urogynecology Comment on above: Urinary incontinence , urge (Primary Dx); Preoperative examination Start: 04-17-2022 Preprocedural examination done Nel Zayas MD Work Phone: Urogynecology Start: 04-16-2022 End: 04-16-2022 ambulatory Clare Sai PLEASURE CRAFT SAILOR.SHIP KEEPER Work Phone: Colorectal Surgery Comment on above: Manometry Start: 04-16-2022 End: 04-16-2022 Patient encounter procedure Clare Sai PLEASURE CRAFT SAILOR.SHIP KEEPER Work Phone: [facility] Comment on above: Screening for colon cancer (Primary Dx) Start: 04-12-2022 Telephone encounter Edenilson giordano DO Work Phone: [facility] Comment on above: Patient Question Start: 04-09-2022 Telephone encounter Edenilson giordano DO Work Phone: [facility] Comment on above: Patient Update Start: 04-07-2022 End: 04-07-2022 Patient encounter procedure Efra Stinson MD Work Phone: [facility] Comment on above: Dental infection (Pr imary Dx) Start: 03-26-2022 End: 03-26-2022 ambulatory [facility] Work Phone: Start: 03-26-2022 End: 03-26-2022 Patient encounter procedure [facility] Start: 03-22-2022 Refill Edenilson Lopez son DO Work Phone: [facility] Comment on above: Opened In Error Start: 03-08-2022 End: 03-08-2022 Subsequent hospital visit by physician Gi [facility] ([facility]) Radiology Comment on above: Rectocele [N81.6] Start: 03-06-2022 Telephone encounter Laisha mckeon PA-C Work Phone: [facility] Comment on above: Results Medication Problem Start: 03-05-2022 End: 03-05-2022 Patient encounter procedure Laisha Espinoza PA-C Work Phone: [facility] Comment on above: Urinary frequency (P rimary Dx); Viral URI Start: 02-16-2022 End: 02-16-2022 Patient encounter procedure Lynne Silverman APRN.SHIP KEEPER Work Phone: Urology Comment on above: Rectocele (Primary D x); Urinary frequency; Frequent UTI Start: 02-14-2022 End: 02-14-2022 Patient encounter procedure Edenilson Nicholson DO Work Phone: [facility] Comment on above: Prolapse of intestin e (Primary Dx); Pelvic floor dysfunction in female; Urinary frequency Start: 02-11-2022 Telephone encounter Sherrie hagen APRN.SHIP KEEPER Work Phone: [facility] Comment on above: Results Start: 02-10-2022 End: 02-10-2022 Office outpatient visit 25 minutes Johnie Aguirre PLEASURE CRAFT SAILOR.SHIP KEEPER Work Phone: [facility] Comment on above: Urinary frequency (P rimary Dx) Start: 02-09-2022 End: 02-09-2022 ambulatory Laisha Sullivan PT Work Phone: [facility] [employer] Start: 02-09-2022 End: 02-09-2022 Manual pelvic examination Laisha Sullivan PT Work Phone: [facility] Comment on above: Prolapse of intestin e (Primary Dx); Urinary incontinence, unspecified type; Pelvic floor dysfunction in female Start: 01-24-2022 Telephone encounter Edenilson giordano DO Work Phone: [facility] Comment on above: Results Start: 01-23-2022 End: 01-23-2022 ambulatory Laisha Sullivan PT Work Phone: [facility] [employer] Start: 01-23-2022 End: 01-23-2022 Manual pelvic examination Laisha Sullivan PT Work Phone: [facility] Comment on above: Prolapse of intestin e (Primary Dx); Urinary incontinence, unspecified type; Pelvic floor dysfunction in female Start: 01-22-2022 End: 01-22-2022 Patient encounter procedure Edenilson Nicholson DO Work Phone: [facility] Comment on above: Urinary frequency (P rimary Dx); Pelvic floor dysfunction in female; Prolapse of intestine; Neck pain; Osteoarthritis of spine with radiculopathy, cervical region Start: 01-19-2022 ambulatory Edenilson rivera DO Work Phone: [facility] Comment on above: headache-left side Start: 01-16-2022 End: 01-16-2022 ambulatory Laisha Sullivan PT Work Phone: [facility] Start: 01-16-2022 End: 01-16-2022 Manual pelvic examination Laisha Sullivan PT Work Phone: [facility] Comment on above: Prolapse of intestin e (Primary Dx); Urinary incontinence, unspecified type; Pelvic floor dysfunction in female Start: 01-14-2022 Telephone encounter Johnie kang APRN.SHIP KEEPER Work Phone: [facility] Comment on above: Results Start: 01-12-2022 ambulatory Edenilson rivera DO Work Phone: [facility] Comment on above: UTI Start: 01-12-2022 End: 01-12-2022 Patient encounter procedure Claudia Jones APRN.SHIP KEEPER Work Phone: [facility] Comment on above: Urinary frequency (P rimary Dx) Start: 01-01-2022 End: 01-01-2022 ambulatory [facility] Work Phone: Start: 01-01-2022 End: 01-01-2022 Patient encounter procedure [facility] Start: 12-23-2021 Telephone encounter Edenilson giordano DO Work Phone: [facility] Comment on above: Epistaxis Start: 12-22-2021 End: 12-22-2021 Subsequent hospital visit by physician Radio General Khloe Sullivan Work Phone: Radiology Comment on above: Status post total le ft knee replacement [Z96.652] Start: 12-22-2021 End: 12-22-2021 Patient encounter procedure Michael Del Castillo PA-C Work Phone: Orthopaedics Comment on above: Status post total le ft knee replacement (Primary Dx); Status post total right knee replacement Start: 12-06-2021 End: 12-06-2021 Patient encounter procedure Juan Lagos MD Work Phone: General Surgery Comment on above: Prolapse of intestin e (Primary Dx); Rectocele; Enterocele; Urinary tract infection without hematuria, site unspecified; Rectal prolapse Start: 12-05-2021 End: 12-05-2021 Patient encounter procedure Edenilson Nicholson DO Work Phone: [facility] Comment on above: Prolapse of intestin e (Primary Dx); Pelvic floor dysfunction in female; Urinary incontinence, unspecified type Start: 12-02-2021 ambulatory Samantha Marin RN NURS E BARREL DEDENTING MACHINE OPERATOR Comment on above: Rectal Problem Start: 11-20-2021 ambulatory Edenilson Lopez son DO Work Phone: [facility] Comment on above: Foot Swelling; Derm Problem Start: 11-01-[address] mahmood PLEASURE CRAFT SAILOR.SHIP KEEPER Work Phone: [facility] Comment on above: Results Start: 10-31-2021 Telephone encounter Edenilson coleroro DO Work Phone: [facility] Comment on above: Rx refill; not on cu rrent med list Start: 10-30-2021 End: 10-30-2021 ambulatory [facility] Work Phone: Start: 10-30-2021 End: 10-30-2021 Patient encounter procedure [facility] Start: 10-29-2021 ambulatory Kinga an LPN NURSE BARREL DEDENTING MACHINE OPERATOR Comment on above: Results; returning a call Start: 10-28-[address] mahmood PLEASURE CRAFT SAILOR.SHIP KEEPER Work Phone: [facility] Comment on above: Results Start: 10-27-2021 ambulatory Edenilson rivera DO Work Phone: [facility] Comment on above: Diarrhea Start: 10-27-2021 End: 10-27-2021 Patient encounter procedure Angeline Monterroso APRN.SHIP KEEPER Work Phone: [facility] Comment on above: Diarrhea, unspecifie d type (Primary Dx); Mild headache Start: 10-20-2021 Refill Edenilson Lopez son DO Work Phone: [facility] Comment on above: Refill Request Start: 10-12-2021 Refill Edenilson rivera DO Work Phone: [facility] Comment on above: Refill Request Start: 09-18-2021 End: 09-18-2021 Patient encounter procedure Michael Del Castillo PA-C Work Phone: Orthopaedics Comment on above: Status post total le ft knee replacement (Primary Dx); Status post total right knee replacement Start: 09-17-2021 Refill Willy Giraldo Work Phone: Orthopaedics Comment on above: Refill Request Start: 09-12-2021 End: 09-12-2021 Office outpatient visit 15 minutes Charissa Jauregui APRN.SHIP KEEPER Work Phone: [facility] Comment on above: Injury of left hand, initial encounter (Primary Dx) Start: 08-03-2021 Telephone encounter Margaret Knutson Work Phone: Podiatry Comment on above: Results Start: 08-02-2021 End: 08-02-2021 Subsequent hospital visit by physician Nalini [facility] Work Phone: Radiology Comment on above: Repetitive stress in jury [X50.3XXA] Start: 08-02-2021 End: 08-02-2021 Patient encounter procedure Margaret Bacon Work Phone: Podiatry Comment on above: Repetitive stress in jury (Primary Dx); Foot pain, left; Erythema of foot Start: 08-01-2021 End: 08-01-2021 Patient encounter procedure [facility] Start: 07-20-2021 Telephone encounter Angeline Roberto PARMJIT.SHIP KEEPER Work Phone: [facility] [place] Comment on above: Results Start: 07-20-2021 End: 07-20-2021 Subsequent hospital visit by physician Nalini [facility] [place] Work Phone: Radiology Comment on above: Foot pain, left [M79 .672] Start: 07-20-2021 End: 07-20-2021 Patient encounter procedure Angelinedavid Monterroso PARMJIT.SHIP KEEPER Work Phone: [facility] [place] Comment on above: Foot pain, left (Sarah ines Dx); Erythema of foot; Urinary frequency; Sensation of fullness in left ear; Psoriatic arthritis (HCC); Recurrent cold sores; Seasonal allergies; Scalp lump Start: 07-19-2021 Refill Edenilson rivera DO Work Phone: [facility] [place] Comment on above: Refill Request Start: 07-17-2021 End: 07-17-2021 Patient encounter procedure Michael Del Castillo PA-C Work Phone: Orthopaedics Comment on above: Status post total le ft knee replacement (Primary Dx); Status post total right knee replacement; Quadriceps weakness Start: 07-17-2021 End: 07-17-2021 Subsequent hospital visit by physician Radio General Khloe Sullivan Work Phone: Radiology Comment on above: Pain in both knees, unspecified chronicity [M25.561, M25.562] Start: 06-28-2021 Refill Edenilson rivera DO Work Phone: [facility] [place] Comment on above: Refill Request Start: 06-27-2021 End: 06-27-2021 Patient encounter procedure Edenilson Nicholson DO Work Phone: [facility] [place] Comment on above: Neck pain (Primary D x); Hypertension, essential; IFG (impaired fasting glucose); Dyslipidemia; Inflammatory arthritis; Rib injury; Osteoarthritis of spine with radiculopathy, cervical region; DDD (degenerative disc disease), cervical Start: 06-23-2021 Orders Only Michael Del Castillo PA-C Work Phone: Orthopaedics Comment on above: Pain in both knees, unspecified chronicity (Primary Dx) Start: 06-19-2021 End: 06-19-2021 Discharged Recurring [facility] Start: 06-12-2021 Telephone encounter Charissa flower APRN.SHIP KEEPER Work Phone: [facility] Comment on above: Results Start: 06-09-2021 End: 06-09-2021 Subsequent hospital visit by physician Xr [facility] Work Phone: Radiology Comment on above: Flank pain [R10.9] Start: 06-09-2021 End: 06-09-2021 Patient encounter procedure Charissa Jauregui PLEASURE CRAFT SAILOR.SHIP KEEPER Work Phone: [facility] Comment on above: Flank pain (Primary Dx) Start: 06-08-2021 Telephone encounter Angeline Roberto PARMJIT.SHIP KEEPER Work Phone: [facility] Comment on above: Results Start: 06-07-2021 Telephone encounter Edenilson giordano DO Work Phone: [facility] Comment on above: Opened In Error Start: 06-07-2021 End: 06-07-2021 Patient encounter procedure Efra Stinson MD Work Phone: [facility] Comment on above: Muscle strain of marian st wall, initial encounter (Primary Dx) Start: 05-02-2021 End: 05-02-2021 Subsequent hospital visit by physician Nalini [facility] Work Phone: Radiology Comment on above: Inflammatory arthrit is [M19.90] Start: 04-10-2021 End: 04-10-2021 Subsequent hospital visit by physician Nalini [facility] [place] Work Phone: Radiology Comment on above: Injury of left hip, initial encounter [S79.912A] Start: 03-25-2021 End: 03-25-2021 Patient encounter procedure [facility]Laboratory, Specimen Start: 03-24-2021 End: 03-24-2021 Patient encounter procedure [facility]Labor[facility], Specimen Start: 10-03-2020 End: 10-03-2020 Subsequent hospital visit by physician Xr [facility] [place] Work Phone: Radiology Comment on above: Dry cough [R05] Procedures Date Procedure Procedure Detail Performing Clinician Start: 07-29-2024 Mri spinal canal lum bar w/o contrast material Mary Keith PLEASURE CRAFT SAILOR.SHIP KEEPER Work Phone: Start: 06-30-2024 Radex ankle complete minimum 3 views Lani Arndt PA-C Work Phone: Start: 05-06-2024 Urnls dip stick/tabl et rgnt auto w/o microscopy Kandi Park PLEASURE CRAFT SAILOR.SHIP KEEPER Work Phone: Start: 04-27-2024 Radiologic exam chest 2 views Sherrie Gonzales PLEASURE CRAFT SAILOR.SHIP KEEPER Work Phone: Start: 04-26-2024 Urnls dip stick/tabl et rgnt auto w/o microscopy Kym DAVIS Work Phone: Start: 01-03-2024 Urnls dip stick/tabl et rgnt auto w/o microscopy Efra Stinson MD Work Phone: Start: 12-24-2023 Urnls dip stick/tabl et rgnt auto w/o microscopy [facility] Start: 07-16-2023 Urnls dip stick/tabl et rgnt auto w/o microscopy Angeline Monterroso PLEASURE CRAFT SAILOR.SHIP KEEPER Work Phone: Start: 07-04-2023 Urnls dip stick/tabl et rgnt auto w/o microscopy Chapis Valle PLEASURE CRAFT SAILOR.SHIP KEEPER Work Phone: Start: 06-27-2023 Radiologic exam chest 2 views Angeline Monterroso PLEASURE CRAFT SAILOR.SHIP KEEPER Work Phone: Start: 06-27-2023 COVID & INFLUENZA A/ B & RSV NAAT, ROUTINE Angeline Monterroso PLEASURE CRAFT SAILOR.SHIP KEEPER Work Phone: Start: 05-08-2023 Us abdominal real ti me w/image limited Angeline Monterroso PLEASURE CRAFT SAILOR.SHIP KEEPER Work Phone: Start: 01-21-2023 Urnls dip stick/tabl et rgnt auto w/o microscopy Kandienma Park PLEASURE CRAFT SAILOR.SHIP KEEPER Work Phone: Start: 01-14-2023 Arthrocentesis aspir &/inj major jt/bursa w/o us Michael Del Castillo PA-C Work Phone: Start: 01-11-2023 Radiologic examinati on knee 3 views Michael Del Castillo PA-C Work Phone: Start: 01-11-2023 C-reactive protein Rosendo Del Castillo PA-C Work Phone: Start: 12-27-2022 3d rendering w/interp&postproc diff work station Edenilson Nicholson DO Work Phone: Start: 12-27-2022 Mri abdomen w/o & w/ contrast material Edenilson Nicholson DO Work Phone: Start: 11-26-2022 Dxa bone density constantin dy 1/> sites axial skel Edenilson Nicholson DO Work Phone: Start: 11-20-2022 Ct thorax w/o contra st material Edenilson Nicholson DO Work Phone: Start: 11-13-2022 Urnls dip stick/tabl et rgnt auto w/o microscopy Claudia Jones PLEASURE CRAFT SAILOR.SHIP KEEPER Work Phone: Start: 09-25-2022 Radiologic exam chest 2 views Nubia Bahena PLEASURE CRAFT SAILOR.SHIP KEEPER Work Phone: Start: 08-15-2022 Ct head/brain w/o co ntrast material Edenilson Nicholson DO Work Phone: Start: 05-10-2022 Level iv surg pathol ogy gross&microscopic exam Owen Rivas MD Work Phone: Start: 05-10-2022 Colonoscopy flx dx w /collj spec when pfrmd Mellisa Griselda DO Work Phone: Start: 04-24-2022 Urnls dip stick/tabl et rgnt auto w/o microscopy Edenilson Nicholson DO Work Phone: Start: 04-20-2022 Urnls dip stick/tabl et rgnt auto w/o microscopy Angeline Monterroso PLEASURE CRAFT SAILOR.SHIP KEEPER Work Phone: Start: 04-16-2022 ADULT [place] [facility]OMET[facility] Yi Gonsalves PLEASURE CRAFT SAILOR.SHIP KEEPER Work Phone: Start: 03-08-2022 Radiologic exam colo n single contrast study Yi Orlandoan PLEASURE CRAFT SAILOR.SHIP KEEPER Work Phone: Start: 03-05-2022 COVID WITH FLUA+B, ROUTINE Laisha Espinoza PA-C Work Phone: Start: 03-05-2022 Culture bacterial qu anttative colony count urine Laisha Espinoza PA-C Work Phone: Start: 03-05-2022 Urnls dip stick/tabl et rgnt auto w/o microscopy Laisha Espinoza PA-C Work Phone: Start: 02-16-2022 Urnls dip stick/tabl et rgnt auto w/o microscopy Lynne Silverman PLEASURE CRAFT SAILOR.SHIP KEEPER Work Phone: Start: 02-10-2022 Urnls dip stick/tabl et rgnt auto w/o microscopy Abigail Balderas PLEASURE CRAFT SAILOR.SHIP KEEPER Work Phone: Start: 01-22-2022 Urnls dip stick/tabl et rgnt auto w/o microscopy Edenilson Nicholson DO Work Phone: Start: 01-12-2022 Urnls dip stick/tabl et rgnt auto w/o microscopy Efra Stinson MD Work Phone: Start: 12-22-2021 Radiologic examinati on knee 3 views Michael Del Castillo PA-C Work Phone: Start: 10-28-2021 Blood occult peroxid ase actv qual feces 1-3 spec Angeline Monterroso PLEASURE CRAFT SAILOR.SHIP KEEPER Work Phone: Start: 10-28-2021 Nfct agent dna/rna gastrointestinal pathogen Angeline Cory PLEASURE CRAFT SAILOR.SHIP KEEPER Work Phone: Start: 10-27-2021 COVID WITH FLUA+B, ROUTINE Angeline Monterroso PLEASURE CRAFT SAILOR.SHIP KEEPER Work Phone: Start: 08-02-2021 Radex foot complete minimum 3 views Margaret Bacon Work Phone: Start: 07-20-2021 Radex foot complete minimum 3 views Angeline Monterroso PLEASURE CRAFT SAILOR.SHIP KEEPER Work Phone: Start: 07-20-2021 Urnls dip stick/tabl et rgnt auto w/o microscopy Angeline Monterroso PLEASURE CRAFT SAILOR.SHIP KEEPER Work Phone: Start: 07-17-2021 Radiologic examinati on knee 3 views Glenna Bhandari PA-C Work Phone: Start: 06-09-2021 Radex ribs uni w/pos teroant ch minimum 3 views Charissa Jauregui PLEASURE CRAFT SAILOR.SHIP KEEPER Work Phone: Start: 06-09-2021 Urnls dip stick/tabl et rgnt auto w/o microscopy Charissa Jauregui PLEASURE CRAFT SAILOR.SHIP KEEPER Work Phone: Start: 05-02-2021 Radex hand minimum 3 views Mariam Beltran MD Work Phone: Start: 04-10-2021 Radex hip unilateral with pelvis 2-3 views Angeline Monterroso PLEASURE CRAFT SAILOR.SHIP KEEPER Work Phone: Start: 04-10-2021 Radiologic exam chest 2 views Angeline Monterroso PLEASURE CRAFT SAILOR.SHIP KEEPER Work Phone: Start: 03-25-2021 End: 03-25-2021 Bacteria identification test Start: 03-24-2021 Bacteria identification test Start: 10-03-2020 Radiologic exam chest 2 views Edenilson Nicholson DO Work Phone: Plan of Treatment Date Care Activity Detail Author Start: 11-23-2032 Urine microalbumin profile DTaP,Tdap,Td Vaccine (4 - Td or Tdap) [facility] Start: 07-11-2030 Urine microalbumin profile [facility] Start: 05-16-2027 Diabetes Screening Diabetes Screening [facility] Start: 03-23-2027 Diabetes Screening Diabetes Screening [facility] Start: 09-22-2026 Diabetes Screening Diabetes Screening [facility] Start: 05-07-2026 Diabetes Screening Diabetes Screening [facility] Start: 08-02-2025 DIABETES SCREEN DIABETES SCREEN [facility] Start: 08-02-2025 Diabetes Screening Diabetes Screening [facility] Start: 01-21-2025 Covid-19 Vaccine (#1) Covid-19 Vaccine (#1) [facility] Comment on above: Postponed from 02/27/1945 (Declined at t his time) Start: 12-02-2024 DIABETES SCREEN DIABETES SCREEN [facility] Start: 11-02-2024 Influenza vaccination Influenza Vaccine (Season Ended) [facility] Start: 08-31-2024 Influenza vaccination Influ[facility] Comment on above: Postponed from 11/03/2023 (Declined at t his time) Start: 08-03-2024 End: 08-03-2024 ambulatory 08/03/2024 2:00 PM EDT OT/PT/Speech Visit [facility] [address] [place] [address] Valdo Ty PT Chronic left-sided low back pain without sciatica [M54.50, G89.29] [facility] Comment on above: Chronic left-sided low back pain without sciatica [M54.50, G89.29] Start: 07-08-2024 End: 07-08-2024 Patient encounter procedure 07/08/2024 11:30 AM EDT Office Visit Pain Management [address] [address] Roger Romero MD [address] [facility] [place] [address] Acute left-sided low back pain without sciatica [M54.50] Pain Management Comment on above: Acute left-sided low back pain without s ciatica [M54.50] Start: 06-08-2024 End: 06-08-2024 Patient encounter procedure 06/08/2024 12:00 PM EDT Office Visit [facility] [place] [address] [place] [address] Edenilson Nicholson DO [address] [place] [address] 5 month follow up Family [facility] Comment on above: 5 month follow up Start: 06-07-2024 DIABETES SCREEN DIABETES SCREEN [facility] Start: 04-30-2024 End: 04-30-2024 Patient encounter procedure 04/30/2024 11:30 AM EST Appointment Radiology [address] [place] [address] Pancreatic Cyst Radiology Comment on above: Pancreatic Cyst Start: 04-30-2024 Subsequent hospital visit by physician 04/30/2024 11:30 AM EST Hospital Encounter Radiology [address] [place] [address] Radiology Start: 04-19-2024 DIABETES SCREEN DIABETES SCREEN [facility] Start: 04-06-2024 End: 04-06-2024 ambulatory 04/06/2024 11:00 AM EST OT/PT/Speech Visit [facility] [address] [place] [address] Kathryn Flores, PT Acute left-sided low back pain without sciatica [M54.50] [facility] Comment on above: Acute left-sided low back pain without s ciatica [M54.50] Start: 03-25-2024 End: 03-25-2024 Patient encounter procedure 03/25/2024 11:00 AM EST Office Visit [facility] [place] [address] [place] [address] Angeline Monterroso APRN.SHIP KEEPER [address] [place] [address] 03-23-24 [facility] left side abdominal pain [facility] [place] Comment on above: 03-23-24 [facility] left side abdominal pa in Start: 01-22-2024 Pneumococcal Vaccine: 65+ (1 - PCV) Pneumococcal Vaccine: 65+ (1 - PCV) [facility] Comment on above: Postponed from 02/27/1946 (Declined at t his time) Start: 01-22-2024 Pneumococcal Vaccine: 65+ (1 of 2 - PCV) Pneumococcal Vaccine: 65+ (1 of 2 - PCV) [facility] Comment on above: Postponed from 02/27/1946 (Declined at t his time) Start: 01-22-2024 RSV Vaccine (1 - 1-dose 60+ series) RSV Vaccine (1 - 1-dose 60+ series) [facility] Comment on above: Postponed from 2000 (Declined at t his time) Start: 01-22-2024 RSV Vaccine (1 - 1-dose 75+ series) RSV Vaccine (1 - 1-dose 75+ series) [facility] Comment on above: Postponed from 02/27/2015 (Declined at t his time) Start: 01-22-2024 Shingrix Vaccine (1 of 2) Shingrix Vaccine (1 of 2) [facility] Comment on above: Postponed from 11/03/2012 (Declined at t his time) Start: 01-22-2024 Shingrix Vaccine (2 of 3) Shingrix Vaccine (2 of 3) [facility] Comment on above: Postponed from 11/03/2012 (Declined at t his time) Start: 01-22-2024 End: 01-22-2024 Patient encounter procedure 01/22/2024 11:00 AM EST Office Visit [facility] [place] [address] [place] [address] Edenilson Nicholson DO [address] [place] [address] 3 month follow up Family [facility] Comment on above: 3 month follow up Start: 01-09-2024 End: 01-09-2024 Patient encounter procedure 01/09/2024 10:00 AM EST Office Visit [facility] [place] [address] [place] [address] Angeline Monterroso APRN.SHIP KEEPER [address] [place], [place] [id number] possible uti and right heel pain [facility] [place] Comment on above: possible uti and right heel pain Start: 12-05-2023 End: 12-05-2023 Patient encounter procedure 12/05/2023 10:40 AM EDT Office Visit [facility] [place] [address] [place], [place] [id number] Kinga Goldberg APRN.SHIP KEEPER [address] [place], [place] [id number] Follow-up Arthritis. Not getting any better. [facility] [place] Comment on above: Follow-up Arthritis. Not getting any bet ter. Start: 11-13-2023 End: 11-13-2023 Patient encounter procedure 11/13/2023 12:00 PM EDT Office Visit Gastroenterology [address] [place] [address] [place] [address] [place], [place] [id number] Pt referred by Dr. Mendez, no referral available at time of scheduling. Spouse states PT referred for elevated blood levels. Gastroenterology Comment on above: Pt referred by Dr. Mendez, no referral available at time of scheduling. Spouse states PT referred for elevated blood levels. Start: 11-03-2023 Covid-19 Vaccine ( season) Covid-19 Vaccine () [facility] Start: 11-03-2023 Covid-19 Vaccine ( season) Covid-19 Vaccine ( season) [facility] Start: 11-03-2023 Influenza vaccination [facility] Start: 10-22-2023 End: 10-22-2023 Patient encounter procedure 10/22/2023 12:00 PM EDT Office Visit [facility] [place] [address] [place], [place] [id number] Edenilson Nicholson, [address] [place], [place] [id number] Follow up [facility] [place] Comment on above: Follow up Start: 09-23-2023 End: 09-23-2023 Patient encounter procedure 09/23/2023 11:00 AM EDT Office Visit [facility] [place] [address] [facility] [place] [address] Kandi Park APRN.SHIP KEEPER [address] [facility] [place] [address] Abdominal Pain [facility] [place] Comment on above: Abdominal Pain Start: 09-18-2023 End: 09-18-2023 Patient encounter procedure 09/18/2023 6:20 PM EDT Office Visit [facility] [place] [address] [facility] [place] [address] Edenilson Nicholson DO [address] [facility] [place] [address] Follow up [facility] [place] Comment on above: Follow up Start: 09-01-2023 Influenza vaccination Influenza Vaccine (#1) [facility] Comment on above: Postponed from 11/02/2022 (Declined at t his time) Start: 08-14-2023 End: 08-14-2023 Patient encounter procedure 08/14/2023 11:00 AM EDT Office Visit [facility] [place] [address] [facility] [place] [address] Angeline Monterroso APRN.SHIP KEEPER [address] [facility] [place] [place] [address] Follow up abd pain [facility] [place] Comment on above: Follow up abd pain Start: 07-24-2023 End: 07-24-2023 Patient encounter procedure 07/24/2023 6:20 PM EDT Office Visit [facility] [place] [address] [facility] [place] [address] Edenilson Nicholson DO [address] [facility] [place] [address] Follow up [facility] [place] Comment on above: Follow up Start: 07-17-2023 End: 02-15-2024 Mri abdomen w/o & w/contrast material MRI PANC/ARETHA WO/W IVCON Radiology Routine Pancreas cyst Cystic mass of pancreas Abnormal MRI of abdomen Expected: 07/17/2023, Expires: 02/15/2024 [facility] Work Phone: Comment on above: Expected: 07/17/2023, Expires: 4 Start: 05-14-2023 End: 07-14-2023 TYPE AND SCREEN,30 DAY TYPE AND SCREEN,30 DAY Blood Bank Routine Vaginal vault prolapse Rectocele Cystocele, midline Urinary incontinence, urge Overactive bladder Rectal prolapse Preoperative examination Expected: 05/14/2023, Expires: 07/14/2023 [facility] Work Phone: Comment on above: Expected: 05/14/2023, Expires: 4 Start: 04-24-2023 COVID-19 VACCINE (#1) COVID-19 VACCINE (#1) [facility] Comment on above: Postponed from 1940 (Declined at t his time) Postponed from 02/27 (Declined at this time) Start: 11-28-2022 End: 01-28-2023 Bacteria identified in Urine by Culture URINE CULTURE Microbiology Routine Recurrent UTI (urinary tract infection) Expected: 11/28/2022, Expires: 01/28/2023 [facility] Work Phone: Comment on above: Expected: 11/28/2022, Expires: 3 Start: 11-28-2022 End: 01-28-2023 Urinalysis complete panel - Urine URINALYSIS, WITH MICROSCOPIC Lab Routine Recurrent UTI (urinary tract infection) Expected: 11/28/2022, Expires: 01/28/2023 [facility] Work Phone: Comment on above: Expected: 11/28/2022, Expires: 3 Start: 11-26-2022 End: 01-26-2023 Basic metabolic 2000 panel - Serum or Plasma BASIC METABOLIC PNL Lab Routine Vaginal vault prolapse Rectocele Cystocele, midline Urinary incontinence, urge Overactive bladder Rectal prolapse Preoperative examination Expected: 11/26/2022, Expires: 01/26/2023 [facility] Work Phone: Comment on above: Expected: 11/26/2022, Expires: Start: 11-26-2022 End: 01-26-2023 CBC panel - Blood by Automated count CBC Lab Routine Vaginal vault prolapse Rectocele Cystocele, midline Urinary incontinence, urge Overactive bladder Rectal prolapse Preoperative examination Expected: 11/26/2022, Expires: 01/26/2023 [facility] Work Phone: Comment on above: Expected: 11/26/2022, Expires: Start: 11-02-2022 Covid-19 Vaccine () Covid-19 Vaccine () [facility] Start: 11-02-2022 Influenza vaccination [facility] Start: 08-31-2022 Influenza vaccination INFLUENZA (#1) [facility] Comment on above: Postponed from 11/02/2021 (Declined at t his time) Start: 08-01-2022 End: 10-01-2022 25-hydroxyvitamin D3 [Mass/volume] in Serum or Plasma VITAMIN D 25 HYDROXY Lab Routine Short-term memory loss Word finding difficulty Expected: 08/01/2022, Expires: 10/01/2022 [facility] Work Phone: Comment on above: Expected: 08/01/2022, Expires: 3 Start: 08-01-2022 End: 10-01-2022 CBC W Auto Differential panel - Blood CBC + DIFF Lab Routine Short-term memory loss Word finding difficulty Expected: 08/01/2022, Expires: 10/01/2022 [facility] Work Phone: Comment on above: Expected: 08/01/2022, Expires: Start: 08-01-2022 End: 10-01-2022 Cobalamin (Vitamin B12) [Mass/volume] in Serum or Plasma VITAMIN B12 BLOOD Lab Routine Short-term memory loss Word finding difficulty Expected: 08/01/2022, Expires: 10/01/2022 [facility] Work Phone: Comment on above: Expected: 08/01/2022, Expires: 3 Start: 08-01-2022 End: 10-01-2022 Comprehensive metabolic 2000 panel - Serum or Plasma COMP METABOLIC PANEL Lab Routine Short-term memory loss Word finding difficulty Expected: 08/01/2022, Expires: 10/01/2022 [facility] Work Phone: Comment on above: Expected: 08/01/2022, Expires: 3 Start: 08-01-2022 End: 10-01-2022 Thyrotropin [Units/volume] in Serum or Plasma TSH BLD Lab Routine Short-term memory loss Word finding difficulty Expected: 08/01/2022, Expires: 10/01/2022 [facility] Work Phone: Comment on above: Expected: 08/01/2022, Expires: 3 Start: 04-24-2022 End: 06-24-2022 Bacteria identified in Urine by Culture [facility] Work Phone: Comment on above: Expected: 04/24/2022, Expires: 3 Start: 04-10-2022 COVID-19 VACCINE (#1) COVID-19 VACCINE (#1) [facility] Comment on above: Postponed from 02/27/1945 (Declined at t his time) Postponed from 08/28 (Declined at this time) Start: 04-10-2022 COVID-19 VACCINE (1) COVID-19 VACCINE (1) [facility] Comment on above: Postponed from 1952 (Declined at t his time) Start: 11-02-2021 Influenza vaccination [facility] Start: 06-12-2021 End: 08-12-2021 Bacteria identified in Urine by Culture URINE CULTURE Microbiology Routine Microscopic hematuria Expected: 06/12/2021, Expires: 08/12/2021 [facility] Work Phone: Comment on above: Expected: 06/12/2021, Expires: 2 Start: 06-12-2021 End: 08-12-2021 Urinalysis complete panel - Urine URINALYSIS, WITH MICROSCOPIC Lab Routine Microscopic hematuria Expected: 06/12/2021, Expires: 08/12/2021 [facility] Work Phone: Comment on above: Expected: 06/12/2021, Expires: 2 Start: 02-27-2015 RSV Vaccine (1 - 1-dose 75+ series) RSV Vaccine (1 - 1-dose 75+ series) [facility] Start: 11-03-2012 SHINGRIX VACCINE (1 of 2) SHINGRIX VACCINE (1 of 2) [facility] Start: 11-03-2012 SHINGRIX VACCINE (2 of 3) SHINGRIX VACCINE (2 of 3) [facility] Start: 2000 RSV Vaccine (1 - 1-dose 60+ series) RSV Vaccine (1 - 1-dose 60+ series) [facility] Start: 02-27-1959 Pneumococcal Vaccine: 50+ (1 of 2 - PCV) Pneumococcal Vaccine: 50+ (1 of 2 - PCV) [facility] Start: 02-27-1946 Pneumococcal Vaccine: 65+ (1 - PCV) Pneumococcal Vaccine: 65+ (1 - PCV) [facility] Start: 02-27-1946 Pneumococcal Vaccine: 65+ (1 of 2 - PCV) Pneumococcal Vaccine: 65+ (1 of 2 - PCV) [facility] Start: [birth year]-27-1946 PNEUMOCOCCAL: 65+ (1 - PCV) PNEUMOCOCCAL: 65+ (1 - PCV) [facility] Start: 02-27-1945 Covid-19 Vaccine (#1) Covid-19 Vaccine (#1) [facility] Start: 1940 COVID-19 VACCINE (#1) COVID-19 VACCINE (#1) [facility] End: 12-06-2022 ADULT [place] ANORECTAL MANOMETRY [facility] ANORECTAL MANOMETRY Endoscopy Routine Rectocele Enterocele Rectal prolapse 1 Occurrences starting 12/06/2021 until 12/06/2022 [facility] Work Phone: Comment on above: 1 Occurrences starting 12/06/2021 until 12/06/2022 ADULT [place] ANORECTAL MANOMETRY ADULT [place] ANORECTAL MANOMETRY Endoscopy Routine Rectocele Enterocele Rectal prolapse 04/16/2022 [facility] Work Phone: Bacteria identified in Urine by Culture URINE CULTURE Microbiology Routine Flank pain 06/09/2021 3:07 PM EDT [facility] Work Phone: Bacteria identified in Urine by Culture URINE CULTURE Microbiology Routine Urinary frequency Ordered: 01/12/2022 [facility] Work Phone: Comment on above: Ordered: 01/12/2022 Bacteria identified in Urine by Culture URINE CULTURE Microbiology Routine Urinary frequency Ordered: 01/22/2022 [facility] Work Phone: Comment on above: Ordered: 01/22/2022 Bacteria identified in Urine by Culture URINE CULTURE Microbiology Routine Urinary frequency Ordered: 02/10/2022 [facility] Work Phone: Comment on above: Ordered: 02/10/2022 Bacteria identified in Urine by Culture URINE CULTURE Microbiology Routine Urinary frequency 11/13/2022 4:39 PM EDT [facility] Work Phone: Bacteria identified in Urine by Culture URINE CULTURE Microbiology Routine Urinary frequency 01/21/2023 9:44 AM [facility] Work Phone: Bacteria identified in Urine by Culture URINE CULTURE Microbiology Routine UTI symptoms 07/04/2023 2:08 PM EDT [facility] Work Phone: Bacteria identified in Urine by Culture URINE CULTURE Microbiology Routine Urinary frequency Ordered: 12/24/2023 [facility] Comment on above: Ordered: 12/24/2023 Bacteria identified in Urine by Culture URINE CULTURE Microbiology Routine Urination frequency Ordered: 01/03/2024 [facility] Work Phone: Comment on above: Ordered: 01/03/2024 Bacteria identified in Urine by Culture BACTERIAL CULTURE, URINE Microbiology Routine Urinary frequency Ordered: 04/26/2024 [facility] Work Phone: Comment on above: Ordered: 04/26/2024 Bacteria identified in Urine by Culture BACTERIAL CULTURE, URINE Microbiology Routine Urinary frequency 05/06/2024 10:56 AM [facility] COVID & INFLUENZA A/ B & RSV PCR, ROUTINE COVID & INFLUENZA A/B & RSV PCR, ROUTINE Microbiology Routine Productive cough Ordered: 04/15/2024 [facility] Work Phone: Comment on above: Ordered: 04/15/2024 End: 08-31-2023 CT BRAIN WO IVCON CT BRAIN WO IVCON Radiology Routine Short-term memory loss Word finding difficulty 1 Occurrences starting 08/01/2022 until 08/31/2023 [facility] Work Phone: Comment on above: 1 Occurrences starting 08/01/2022 until 08/31/2023 End: 12-14-2023 Ct thorax w/o contrast material CT CHEST WO IVCON Radiology Routine Chronic cough Rales 1 Occurrences starting 11/14/2022 until 12/14/2023 [facility] Work Phone: Comment on above: 1 Occurrences starting 11/14/2022 until 12/14/2023 End: 12-14-2023 DXA-AXIAL SKELETON DXA-AXIAL SKELETON Radiology Routine Osteopenia, senile 1 Occurrences starting 11/14/2022 until 12/14/2023 [facility] Work Phone: Comment on above: 1 Occurrences starting 11/14/2022 until 12/14/2023 End: 11-12-2024 EGD - THERAPEUTIC, EUS, OR TUBE INTERVENTIONS EGD - THERAPEUTIC, EUS, OR TUBE INTERVENTIONS Endoscopy Routine Pancreatic cyst 1 Occurrences starting 11/13/2023 until 11/12/2024 [facility] Work Phone: Comment on above: 1 Occurrences starting 11/13/2023 until 11/12/2024 Erythrocyte sedimentation rate SED RATE WESTERGREN Lab Routine Pain due to knee joint prosthesis, initial encounter (HCC) Status post total left knee replacement 01/11/2023 8:08 AM EST [facility] Work Phone: Helicobacter pylori Ag [Presence] in Stool by Immunoassay HELICOBACTER PYLORI ANTIGEN BY EIA, STOOL Microbiology Routine Abnormal findings in stool Ordered: 06/08/2024 [facility] Work Phone: Comment on above: Ordered: 06/08/2024 MR Biliary ducts and Pancreatic duct WO and W contrast IV MRI PANC/ARETHA WO/W IVCON Radiology Routine Pancreas cyst Cystic mass of pancreas Abnormal MRI of abdomen 05/22/2023 6:12 PM EDT [facility] Work Phone: MR Unspecified body region 3D post processing MRI 3D POST PROCESSING Radiology Routine Pancreas cyst Cystic mass of pancreas Abnormal MRI of abdomen 05/22/2023 6:14 PM EDT [facility] Work Phone: End: 02-15-2024 MRI 3D POST PROCESSING MRI 3D POST PROCESSING Radiology Routine Pancreas cyst Cystic mass of pancreas Abnormal MRI of abdomen 1 Occurrences starting 01/16/2023 until 02/15/2024 [facility] Work Phone: Comment on above: 1 Occurrences starting 01/16/2023 until 02/15/2024 Njx anes&/strd w/img tfrml edrl lmbr/sac 1 lvl INJ TRANSFORAMINAL EPID ANES/STER LS [facility] Procedures Routine Spinal stenosis of lumbar region, unspecified whether neurogenic claudication present Degeneration of intervertebral disc of lumbosacral region with discogenic back pain and lower extremity pain Ordered: 08/03/2024 [facility] Work Phone: Comment on above: Ordered: 08/03/2024 Ova and parasites identified in Unspecified specimen by Light microscopy OVA + PARA MICROSCOPIC Microbiology Routine Diarrhea, unspecified type 10/28/2021 8:10 AM EDT [facility] Work Phone: PANC ELASTASE, FECAL PANC ELASTA SE, FECAL Lab Routine Abnormal findings in stool Ordered: 06/08/2024 [facility] Comment on above: Ordered: 06/08/2024 End: 01-05-2023 Radiologic exam colon single contrast study XR DEFECOGRAPHY Radiology Routine Rectocele Enterocele Rectal prolapse 1 Occurrences starting 12/06/2021 until 01/05/2023 [facility] Work Phone: Comment on above: 1 Occurrences starting 12/06/2021 until 01/05/2023 SARS-CoV-2 (COVID-19 ) RNA [Presence] in Respiratory specimen by PRABHA with probe detection COVID NAAT, UPPER RESPIRATORY, ROUTINE Microbiology Routine Acute cough Exposure to COVID-19 virus 10/28/2023 11:28 AM EDT [facility] Work Phone: End: 04-16-2023 Screening colonoscopy COLONOSCOPY SCREENING Endoscopy Routine Screening for colon cancer 1 Occurrences starting 04/16/2022 until 04/16/2023 [facility] Work Phone: Comment on above: 1 Occurrences starting 04/16/2022 until 04/16/2023 UA DIP, URINE (POC) UA DIP, URIN E (POC) Lab Routine Urinary frequency Ordered: 07/20/2021 [facility] Work Phone: Comment on above: Ordered: 07/20/2021 UA DIP, URINE (POC) UA DIP, URIN E (POC) Lab Routine Urinary frequency Ordered: 04/24/2022 [facility] Work Phone: Comment on above: Ordered: 04/24/2022 UA DIP, URINE (POC) UA DIP, URIN E (POC) Lab Routine Urinary frequency Ordered: 04/20/2022 [facility] Work Phone: Comment on above: Ordered: 04/20/2022 UA DIP, URINE (POC) UA DIP, URIN E (POC) Lab Routine Other female genital prolapse Urinary frequency Ordered: 05/08/2022 [facility] Work Phone: Comment on above: Ordered: 05/08/2022 UA DIP, URINE (POC) UA DIP, URIN E (POC) Lab Routine Urinary frequency Ordered: 12/24/2023 [facility] Work Phone: Comment on above: Ordered: 12/24/2023 UA DIP, URINE (POC) UA DIP, URIN E (POC) Lab Routine Urinary frequency Ordered: 05/06/2024 [facility] Work Phone: Comment on above: Ordered: 05/06/2024 URODYNAMICS WHI URODYNAMICS WHI Procedures Routine Urinary incontinence, urge Preoperative examination Ordered: 04/17/2022 [facility] Work Phone: Comment on above: Ordered: 04/17/2022 URODYNAMICS WHI URODYNAMICS WHI Procedures Routine Vaginal vault prolapse Rectocele Cystocele, midline Urinary incontinence, urge Overactive bladder Rectal prolapse Preoperative examination Ordered: 11/26/2022 [facility] Work Phone: Comment on above: Ordered: 11/26/2022 End: 12-24-2024 XR Ankle - right AP and Lateral and oblique XR ANKLE GENERAL 3V AP/LAT/OBL RIGHT Radiology Routine Pain in lateral portion of right ankle 1 Occurrences starting 11/25/2023 until 12/24/2024 [facility] Work Phone: Comment on above: 1 Occurrences starting 11/25/2023 until 12/24/2024 XR Ankle - right AP and Lateral and oblique XR ANKLE GENERAL 3V AP/LAT/OBL RIGHT Radiology Routine Pain in lateral portion of right ankle 11/25/2023 1:20 PM EDT [facility] End: 07-26-2024 XR Chest PA and Lateral XR CHEST 2V FRONTAL/LAT Radiology Routine Acute cough Persistent cough Decreased lung sounds 1 Occurrences starting 06/27/2023 until 07/26/2024 [facility] Work Phone: Comment on above: 1 Occurrences starting 06/27/2023 until 07/26/2024 XR Chest PA and Lateral XR CHEST 2V FRONTAL/LAT Radiology Routine Acute cough Persistent cough Decreased lung sounds 06/27/2023 3:19 PM EDT [facility] XR Chest PA and Lateral XR CHEST 2V FRONTAL/LAT Radiology STAT Acute cough Ordered: 04/26/2024 [facility] Comment on above: Ordered: 04/26/2024 End: 07-23-2022 XR KNEE POST OP 3V AP/LAT/MERCHANT BILATERAL XR KNEE POST OP 3V AP/LAT/MERCHANT BILATERAL Radiology Routine Pain in both knees, unspecified chronicity 1 Occurrences starting 06/23/2021 until 07/23/2022 [facility] Work Phone: Comment on above: 1 Occurrences starting 06/23/2021 until 07/23/2022 XR Lumbar spine 3 Views XR LUMBAR GENERAL 3V AP/LAT/L5-S1 Radiology Routine Chronic left-sided low back pain without sciatica 06/02/2024 12:31 PM EDT [facility] Work Phone: End: 07-02-2025 XR Lumbar spine 3 Views XR LUMBAR GENERAL 3V AP/LAT/L5-S1 Radiology Routine Chronic left-sided low back pain without sciatica 1 Occurrences starting 06/02/2024 until 07/02/2025 [facility] Work Phone: Comment on above: 1 Occurrences starting 06/02/2024 until 07/02/2025 XR Thoracic spine AP and Lateral and Swimmers XR THORACIC GENERAL 3V AP/LAT/SWIMMERS Radiology Routine Chronic left-sided low back pain without sciatica 06/02/2024 12:31 PM EDT [facility] End: 07-02-2025 XR Thoracic spine AP and Lateral and Swimmers XR THORACIC GENERAL 3V AP/LAT/SWIMMERS Radiology Routine Chronic left-sided low back pain without sciatica 1 Occurrences starting 06/02/2024 until 07/02/2025 [facility] Comment on above: 1 Occurrences starting 06/02/2024 until 07/02/2025 [facility] Immunizations Immunization Date Immunization Notes Care Provider [facility] 11-23-2022 tetanus toxoid, reduced diphtheria toxoid, and acellular pertussis vaccine, adsorbed Nel Zayas MD Work Phone: [facility] 07-11-2020 tetanus toxoid, reduced diphtheria toxoid, and acellular pertussis vaccine, adsorbed Efra Stinson MD Work Phone: [facility] 02-03-2020 influenza, high-dose , quadrivalent vaccine (FLUZONE HIGH DOSE QUADRIVALENT) Efra Stinson MD Work Phone: [facility] Work Phone: 02-03-2020 influenza virus vaccine, unspecified formulation Johnie Aguirre APRN.SHIP KEEPER Work Phone: [facility] 05-08-2019 influenza, high dose seasonal, preservative-free Efra Stinson MD Work Phone: [facility] Work Phone: 09-08-2012 zoster vaccine, live Efra Card MD Work Phone: [facility] 04-04-2012 tetanus toxoid, reduced diphtheria toxoid, and acellular pertussis vaccine, adsorbed Efra Stinson MD Work Phone: [facility] Payers Date Payer Category Payer Self-pay [id number] 2022 Medicare (Managed Care) MMO [employer] DV[employer] O [id number] 2022 Medicare [id number] 2021 Medicare AETNA MEDICARE A ETNA MEDICARE PPO [id number] 2021-Present [phone] [address] [place] [address] PPO [id number] 2016 Medicare [id number] 2016 Private Health Insurance [id number] 2016 Unknown [facility] [place] [id number] 2013 Unknown [id number] 2013 Unknown [id number] 1940 Unknown [id number] Unknown [id number] Unknown [id number] Unknown [id number] Unknown [id number] Unknown [id number] Unknown [id number] Social History Date Type Detail Facility Start: 09-09-2010 End: 10-27-2021 Tobacco smoking status NHIS Never smoked tobacco [facility] Start: 06-07-2021 End: 06-02-2024 Alcohol intake Current non-drinker of alcohol (finding) [facility] Start: 1940 Sex Assigned At Not on file [facility] Start: 09-03-2020 End: 01-22-2022 Exposure to SARS-CoV-2 (event) Not sure [facility] Work Phone: Start: 09-07-2016 End: 09-07-2016 Tobacco smoking status NHIS Unknown if ever smoked [facility] Start: 1940 Sex Assigned At Female [facility] Start: 09-09-2010 End: 10-27-2021 Tobacco use and exposure Smokeless tobacco non-user [facility] Work Phone: Start: 09-07-2016 None [facility] Start: 09-07-2016 Spouse/ Signif icant Other [facility] Start: 07-19-2022 End: 09-20-2022 History of Social function [facility] Start: 07-19-2022 End: 09-20-2022 Tobacco use panel [facility] Adult Depression Screening Assessment 0 [facility] Tobacco smoking status No Smokin g Status Entered [facility] Medical Equipment Procedure Code Equipment Code Equipment Origin al Text Equipment Identifier Dates Cement Simplex P Bone Radiopaque Full Dose Sterile - [id number] Start: 06-03-2017 Cement Simplex P Bone Radiopaque Full Dose Sterile - [id number] Start: 03-28-2020 Triathlon X3 Tib ial Bearing - Cr Size 2 9mm [id number] Start: 03-28-2020 Component Triath niki 1 Femoral Cruciate Retain Cemented Knee Right - [id number] Start: 06-03-2017 Baseplate Triath niki 1 Tibial Primary Cement Knee - [id number] Start: 06-03-2017 Insert Triathlon 1 X3 9mm Tibial Condylar Stabilized Knee - [id number] Start: 06-03-2017 Component Triath niki 29mm Asymmetric X3 9mm Patellar Total Knee - [id number] Start: 06-03-2017 Component Triath niki 2 Femoral Cruciate Retain Cemented Knee Left - [id number] Start: 03-28-2020 Component Triath niki 32mm 10mm Patellar Asymmetric Knee - [id number] Start: 03-28-2020 Baseplate Triath niki 2 Tibial Primary Cement Knee - [id number] Start: 03-28-2020 Functional Status Date Assessment Result Facility 01-19-2023 Functional Status Independent Mary Ann Jayme bhatt [facility] 01-19-2023 Functional Status Ambulation in Room [facility] 03-29-2020 Are you deaf, or do you have serious difficulty hearing No 03/29/2020 3:17 PM Dania Kilpatrick RN No [facility] 03-29-2020 Are you blind, or do you have serious difficulty seeing, even when wearing glasses No 03/29/2020 3:17 PM Dania Kilpatrick RN No [facility] 03-29-2020 Do you have serious difficulty walking or climbing stairs No 03/29/2020 3:17 PM Dania Kilpatrick RN No [facility] 03-29-2020 Do you have difficul ty dressing or bathing No 03/29/2020 3:17 PM Dania Kilpatrick RN No [facility] 03-29-2020 Because of a physica l, mental, or emotional condition, do you have difficulty doing errands alone such as visiting a physician's office or shopping No 03/29/2020 3:17 PM Dania Kilpatrick RN No [facility] Mental Status Date Assessment Result Facility 01-19-2023 Mental Status Orientation Oriented x 4 [facility] 01-19-2023 Mental Status [facility] 03-29-2020 Because of a physica l, mental, or emotional condition, do you have serious difficulty concentrating, remembering, or making decisions No 03/29/2020 3:17 PM Dania Kilpatrick RN No [facility] Clinical Notes 06-04-2017 to 08-08-2024 America Mendez APRN.KEVIN - 08/08/2024 2:19 PM EDTPatient InstructionsTelephone Encounter - Nell Barnett RN - 08/08/2024 12:01 PM EDTTelephone Encounter - Payal Godoy RN - 08/03/2024 2:28 PM EDT Note Date & Type Note Facility 08-08-2024 Note HNO ID: [id number] Author: AMERICA MENDEZ APRN.KEVIN Service: ? Author Type: Nurse Practitioner Type: Progress Notes Filed: 08/08/2024 14:21 Note Text: This note was created using [employer]. Subjective Anaya Wilson is a 84 year old female. HPI Patient presents today complaining of about 3 days of a tender itchy area to her right cheek. She states that she was out [place] but does not think that she got stung. She is concerned that maybe it is related to sun exposure. She otherwise denies any fever or any other health concerns. Review of Systems As above Objective BP 140/72 Pulse (!) 57 Temp 36.5 ?C (97.7 ?F) Resp 19 Wt 54.5 kg (120 lb 2.4 oz) SpO2 97% BMI 25.11 kg/m? Physical Exam Vitals and nursing note reviewed. Constitutional: General: She is not in acute distress. Appearance: Normal appearance. She is not ill-appearing. HENT: Head: Normocephalic. Pulmonary: Effort: Pulmonary effort is normal. Musculoskeletal: General: Normal range of motion. Skin: General: Skin is warm. Comments: Approximately a 2 cm diameter mildly erythematous with a raised center lesion to the right cheek. Area is nontender on palpation Neurological: General: No focal deficit present. Mental Status: She is alert and oriented to person, place, and time. Psychiatric: Mood and Affect: Mood normal. Behavior: Behavior normal. Assessment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 section of CPT : reviewed and ordered Risk of Complications, Morbidity, and/or Mortality Presenting problems: low Diagnostic procedures: low Management options: low Lani Arndt PA-C documented in this encounter [facility] 06-24-2024 Telephone encounter Note Pt informed Ivette Valenzuela MA [facility] 06-24-2024 Miscellaneous Notes Pt informed Ivette Valenzuela MA Please let her know that her pancreatic elastase and H pylori stool testing is normal appearing Edenilson Nicholson DO documented in this encounter [facility] 06-24-2024 Telephone encounter Note Please let her know that her pancreatic elastase and H pylori stool testing is normal appearing Edenilson iNcholson DO [facility] 06-09-2024 Telephone encounter Note Phoned patient went over results, notes from Boogie Monterroso NP with understanding. Assisted with transfer to imaging scheduler to get pain management appt set up. [facility] 06-09-2024 Miscellaneous Notes Phoned patient went over results, notes from Boogie Monterroso NP with understanding. Assisted with transfer to imaging scheduler to get pain management appt set up. 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 I would like her to see pain management for evaluation of this. I do question if her left back/flank pain could be r/t this. Please assist her to schedule. 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 I would like her to see pain management for evaluation of this. I do question if her left back/flank pain could be r/t this. Please assist her to schedule. Angeline Monterroso APRN.CNP [facility] 06-08-2024 Note HNO ID: [id number] Author: EDENILSON NICHOLSON DO Service: ? Author Type: Physician Type: Progress Notes Filed: 06/10/2024 21:15 Note Text: CC: Anaya Wilson is a 84 year old female who presents to the office for follow up HPI: She is present with her in the office today Was seen in the ER at [facility] on 03/23 (2 days ago) for left side pain-was dx with muscle strain and given a dx of muscle strain-Flexeril has been helpful. Had been shoveling snow a couple days prior. Did take Flexeril last evening as well as Tylenol, this has been helpful. Interested in doing PT. Left leg pain, worse after walking or standing in a store, comes and goes, no falls. Started in Mar as above and still occurring intermittently but does admit that she tends to overdue things and not know when to stop to take a break. Psoriatic arthritis, recently restarted her methotrexate due to her arthritis pain. The abdominal symptoms weren't improved when she trialed off the methotrexate. Does feel the abdominal pain symptoms have improved since eating more yogurt and staying away from sugars as much as able Still continues to have intermittent abdominal discomfort and sometimes loose stools and sometimes not. No blood in stool. Patient and haven't been able to figure out any specific food triggers. Memory, dementia, was previously taking aricept 5 mg a day which was started spring 2023. Tolerating medication well with SE. At previous OFFICE VISIT her dose was increased to 10 mg a day which she is tolerating well Mood, stable, taking the Prozac 10 mg, no concerns. 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 Dementia (HCC) Diverticulosis of colon (without mention of hemorrhage) Dry cough 05/23/2016 Ganglion of joint 07/16/2005 Generalized osteoarthrosis, unspecified site Hemorrhage of gastrointestinal tract, unspecified Hemorrhage of rectum and anus Hypertension Infection of left eye Irritable bowel syndrome Osteomalacia, unspecified Other and unspecified hyperlipidemia Pneumonia, organism unspecified(486) PONV (postoperative nausea and vomiting) Psoriatic arthritis (HCC) Rectocele 01/05/2011 Skin tear of lower leg without complication 05/23/2016 Sprain of unspecified site of sacroiliac region Unspecified constipation Urge incontinence mild PAST SURGICAL HISTORY Procedure Laterality Date ARTHRP KNE CONDYLEANDPLATU MEDIALANDLAT COMPARTMENTS Right 06/03/2017 Knee replacement, total COLONOSCOPY 05/10/2022 rectal mass COLONOSCOPY FLX DX W/COLLJ SPEC WHEN PFRMD 04/20/2002 Colonoscopy COLONOSCOPY FLX DX W/COLLJ SPEC WHEN PFRMD 07/25/2011 Colonoscopy EYE SURGERY HX JOINT REPLACEMENT HX NEUROPLASTY AND/TRANSPOS MEDIAN NRV CARPAL TUNNE 1979 Carpal tunnel decomp b/l hands NEUROPLASTY AND/TRANSPOS MEDIAN NRV CARPAL TUNNE 12/18/2011 RIGHT PAST SURGICAL HISTORY OF Left laser eye surgery for glaucoma SIGMOIDOSCOPY FLX DX W/COLLJ SPEC BR/WA IF PFRMD 06/23/2007 TOTAL ABDOMINAL HYSTERECT W/WO RMVL TUBE OVARY 1988 RUBI/BSO for fibroids and bleeding TOTAL KNEE REPLACEMENT Left 03/28/2020 VAGINAL HYSTERECTOMY Current Outpatient Medications Medication Sig losartan (COZAAR) 25 mg tablet Take 1 tablet by mouth once daily. FLUoxetine (PROZAC) 10 mg capsule Take 1 capsule by mouth once daily. cyclobenzaprine (FLEXERIL) 5 mg tablet Take 1 tablet by mouth three times a day as needed. hydrocortisone (ANUSOL-HC) 25 mg suppository 1 Suppository by RECTAL route two times a day as needed (hemorrhoids/rectal pain). benzonatate (TESSALON PERLE) 100 mg capsule Take 2 capsules by mouth three times a day as needed. albuterol HFA (PROVENTIL HFA, VENTOLIN HFA) 90 mcg/actuation inhaler Inhale 2 Puffs as instructed every 4 hours as needed for wheezing/shortness of breath. donepezil (ARICEPT) 10 mg tablet Take 1 tablet by mouth daily at bedtime. ketoconazole (NIZORAL) 2 % cream Apply to affected area two times a day. amitriptyline (ELAVIL) 10 mg tablet Take 1 tablet by mouth daily at bedtime. loratadine (CLARITIN) 10 mg tablet Take 1 tablet by mouth once daily. methotrexate 2.5 mg tablet TAKE 5 TABLET(S) ORAL ONCE A WEEK START 4 TABS ONCE A WEEK FOR 2 WEEKS famotidine (PEPCID) 10 mg tablet Take 1 tablet by mouth two times a day. Azelaic Acid (FINACEA) 15 % gel Apply to affected area once daily. fluorometholone (FML LIQUID FILM) 0.1 % ophthalmic suspension Use 1 Drop in both eyes once daily. FOLIC ACID ORAL Take by mouth. No current facility-administered medications for this visit. ALLERGIES Allergen Reactions Caffeine Codeine Darv (more content not included)... [facility] 06-08-2024 History of Present illness Narrative CC: Anaya Wilson is a 84 year old female who presents to the office for follow up HPI: She is present with her in the office today Was seen in the ER at [facility] on 03/23 (2 days ago) for left side pain-was dx with muscle strain and given a dx of muscle strain-Flexeril has been helpful. Had been shoveling snow a couple days prior. Did take Flexeril last evening as well as Tylenol, this has been helpful. Interested in doing PT. Left leg pain, worse after walking or standing in a store, comes and goes, no falls. Started in Mar as above and still occurring intermittently but does admit that she tends to overdue things and not know when to stop to take a break. Psoriatic arthritis, recently restarted her methotrexate due to her arthritis pain. The abdominal symptoms weren't improved when she trialed off the methotrexate. Does feel the abdominal pain symptoms have improved since eating more yogurt and staying away from sugars as much as able Still continues to have intermittent abdominal discomfort and sometimes loose stools and sometimes not. No blood in stool. Patient and haven't been able to figure out any specific food triggers. Memory, dementia, was previously taking aricept 5 mg a day which was started spring 2023. Tolerating medication well with SE. At previous OFFICE VISIT her dose was increased to 10 mg a day which she is tolerating well Mood, stable, taking the Prozac 10 mg, no concerns. 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 Dementia (HCC) Diverticulosis of colon (without mention of hemorrhage) Dry cough 05/23/2016 Ganglion of joint 07/16/2005 Generalized osteoarthrosis, unspecified site Hemorrhage of gastrointestinal tract, unspecified Hemorrhage of rectum and anus Hypertension Infection of left eye Irritable bowel syndrome Osteomalacia, unspecified Other and unspecified hyperlipidemia Pneumonia, organism unspecified(486) PONV (postoperative nausea and vomiting) Psoriatic arthritis (HCC) Rectocele 01/05/2011 Skin tear of lower leg without complication 05/23/2016 Sprain of unspecified site of sacroiliac region Unspecified constipation Urge incontinence mild PAST SURGICAL HISTORY Procedure Laterality Date ARTHRP KNE CONDYLE&PLATU MEDIAL&LAT COMPARTMENTS Right 06/03/2017 Knee replacement, total COLONOSCOPY 05/10/2022 rectal mass COLONOSCOPY FLX DX W/COLLJ SPEC WHEN PFRMD 04/20/2002 Colonoscopy COLONOSCOPY FLX DX W/COLLJ SPEC WHEN PFRMD 07/25/2011 Colonoscopy EYE SURGERY HX JOINT REPLACEMENT HX NEUROPLASTY &/TRANSPOS MEDIAN NRV CARPAL TUNNE 1979 Carpal tunnel decomp b/l hands NEUROPLASTY &/TRANSPOS MEDIAN NRV CARPAL TUNNE 12/18/2011 RIGHT PAST SURGICAL HISTORY OF Left laser eye surgery for glaucoma SIGMOIDOSCOPY FLX DX W/COLLJ SPEC BR/WA IF PFRMD 06/23/2007 TOTAL ABDOMINAL HYSTERECT W/WO RMVL TUBE OVARY 1988 RUBI/BSO for fibroids and bleeding TOTAL KNEE REPLACEMENT Left 03/28/2020 VAGINAL HYSTERECTOMY Current Outpatient Medications Medication Sig losartan (COZAAR) 25 mg tablet Take 1 tablet by mouth once daily. FLUoxetine (PROZAC) 10 mg capsule Take 1 capsule by mouth once daily. cyclobenzaprine (FLEXERIL) 5 mg tablet Take 1 tablet by mouth three times a day as needed. hydrocortisone (ANUSOL-HC) 25 mg suppository 1 Suppository by RECTAL route two times a day as needed (hemorrhoids/rectal pain). benzonatate (TESSALON PERLE) 100 mg capsule Take 2 capsules by mouth three times a day as needed. albuterol HFA (PROVENTIL HFA, VENTOLIN HFA) 90 mcg/actuation inhaler Inhale 2 Puffs as instructed every 4 hours as needed for wheezing/shortness of breath. donepezil (ARICEPT) 10 mg tablet Take 1 tablet by mouth daily at bedtime. ketoconazole (NIZORAL) 2 % cream Apply to affected area two times a day. amitriptyline (ELAVIL) 10 mg tablet Take 1 tablet by mouth daily at bedtime. loratadine (CLARITIN) 10 mg tablet Take 1 tablet by mouth once daily. methotrexate 2.5 mg tablet TAKE 5 TABLET(S) ORAL ONCE A WEEK START 4 TABS ONCE A WEEK FOR 2 WEEKS famotidine (PEPCID) 10 mg tablet Take 1 tablet by mouth two times a day. Azelaic Acid (FINACEA) 15 % gel Apply to affected area once daily. fluorometholone (FML LIQUID FILM) 0.1 % ophthalmic suspension Use 1 Drop in both eyes once daily. FOLIC ACID ORAL Take by mouth. No current facility-administered medications for this visit. ALLERGIES Allergen Reactions Caffeine Codeine Darvocet A500 [Prop* Vomiting Demerol [Meperidine* Vomiting Entex [Phenylephrin* Ephedrine Other: See Comments Heart palpitations Griseofulvin Milk Containing Pro* Intolerance Nasal stuffiness Tramadol Other: See Comments Nausea, vomiting, dry heaves after carpal tunnel surgery Vicodin [Hydrocodon* Itching Zoloft [Sertraline * Mental Status Change Increased anxiety and feeling of depression. Started in 2005, not noted then Social History Tobacco Use Smoking status: Never Smokeless tobacco: Never Vaping Use Vaping status: Never Used Substance Use Topics Alcohol use: No Drug use: No ROS: See HPI PE: BP 120/80 Pulse 60 Temp (Src) 97 (Left Tympanic) Resp 16 Wt 119 lb (54.0kg) Gen: A&O, NAD, non-toxic appearing, Pleasant, cooperative, short term memory impaired in office HEENT: NT/AC, PERRLA, wearing glasses, EOMs intact b/l, nares clear and patent b/l, pharynx without erythema, exudate or lesions. Uvula midline. MMM, EACs without erythema or debris. TMs pearly howard with intact landmarks b/l. Neck: supple, No cervical LAD, no thyromegaly, no carotid bruits CV: RRR, normal S1 and S2, no murmurs, no gallops, no rubs, Pulses 2+ and symmetric in UE and LE b/l Lungs: normal respiratory effort, CTA b/l, no wheezing or rhonchi or rales Abd: soft, NT, ND, +BS, no hepatosplenomegaly MS: FROM all 4 extremities Neuro: CN II-XII intact b/l, strength 5/5 b/l UE and LE, DTRs 2/4 UE and LE, sensation intact. Skin: warm, dry, intact, No rashes or lesions on exposed skin. No edema, normal pulses ASSESSMENT/PLAN: 1. Hypertension, essential - ICD9: 401.9, ICD10: I10 (primary diagnosis) - Controlled - Continue current medications - Recommend home blood pressure monitoring, to bring results to next visit - Encouraged sodium restriction, DASH or Mediterranean diet - Recommend regular aerobic exercise 2. Abnormal findings in stool - ICD9: 792.1, ICD10: R19.5 Check stool studies Follow up with Gastro specialist Recommend starting probiotic - HELICOBACTER PYLORI ANTIGEN BY EIA, STOOL - PANC ELASTASE, FECAL 3. JOSHUA (generalized anxiety disorder) - ICD9: 300.02, ICD10: F41.1 Stable, continue same medication 4. Chronic left-sided low back pain without sciatica - ICD9: 724.2, 338.29, ICD10: M54.50, G89.29 Chronic, stable 5. Dementia without behavioral disturbance (HCC) - ICD9: 294.20, ICD10: F03.90 Chronic, taking aricept. Offered referral to Neurologist if interested 6. Hyperlipidemia, mixed - ICD9: 272.2, ICD10: E78.2 - Controlled - Counseled on healthy diet and regular exercise 7. Epigastric abdominal pain - ICD9: 789.06, ICD10: R10.13 - chronic, stool testing as ordered - Discussed lifestyle modifications including losing weight, limiting caffeine, no meals three hours before sleep, and head of bed elevation F/u with gastro specialist. 8. IFG (impaired fasting glucose) - ICD9: 790.21, ICD10: R73.01 Diet controlled 9. Psoriatic arthritis (HCC) - ICD9: 696.0, ICD10: L40.50 Chronic, f/u with Social Media Content Specialist Edenilson Nicholson DO I spent 44 minutes in the visit, with more than 50% of the total [id number] time of the visit in counseling / coordination of care. Return if no improvement. Follow up with Edenilson Nicholson DO. To ER if develops chest pain, shortness of breath. Discussed risks, benefits, alternatives, and potential side effects of medications. Patient/Guardian expressed understanding and agreed with the plan. See patient instructions. Edenilson Nicholson DO [address] [place] [address] documented in this encounter [facility] 06-03-2024 Note HNO ID: [id number] Author: ANGELINE MONTERROSO APRN.SHIP KEEPER Service: ? Author Type: Nurse Practitioner Type: Progress Notes Filed: 06/03/2024 15:11 Note Text: 06/03/2024 The patient consented to the use of [employer] software for draft documentation of the visit consistent with [facility]?s Notice of Privacy Practices. HPI: Anaya is an 84-year-old female presenting for follow-up after an ED visit for nausea and emesis, with additional complaints of abdominal pain, left leg pain, and left lower back pain. Nausea and Emesis: - ED visit approximately 2 weeks ago for nausea and emesis. - Symptoms lasted about a day; received IV antiemetics in the ED with resolution of symptoms. - No diarrhea reported. - Prescribed Zofran PRN for nausea; minimal use since ED visit. Abdominal Pain: - Intermittent abdominal pain. - Follow-up with Dr. Mendez at [facility] scheduled in September. - History of pancreatic cyst, stable on MRI. Left Leg Pain: - Pain in the left romero area, sometimes occurring while walking or at home. - Pain does not radiate to the foot. Left Lower Back Pain: - Pain in the left lower back, described as a muscle pain with occasional swelling. - Pain exacerbated by certain movements and activities, such as picking up sticks in the yard. - Onset believed to be related to repetitive motion from shoveling snow. 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 Dementia (HCC) Diverticulosis of colon (without mention of hemorrhage) Dry cough 05/23/2016 Ganglion of joint 07/16/2005 Generalized osteoarthrosis, unspecified site Hemorrhage of gastrointestinal tract, unspecified Hemorrhage of rectum and anus Hypertension Infection of left eye Irritable bowel syndrome Osteomalacia, unspecified Other and unspecified hyperlipidemia Pneumonia, organism unspecified(486) PONV (postoperative nausea and vomiting) Psoriatic arthritis (HCC) Rectocele 01/05/2011 Skin tear of lower leg without complication 05/23/2016 Sprain of unspecified site of sacroiliac region Unspecified constipation Urge incontinence mild Current Outpatient Medications on File Prior to Visit Medication Sig hydrocortisone (ANUSOL-HC) 25 mg suppository 1 Suppository by RECTAL route two times a day as needed (hemorrhoids/rectal pain). benzonatate (TESSALON PERLE) 100 mg capsule Take 2 capsules by mouth three times a day as needed. albuterol HFA (PROVENTIL HFA, VENTOLIN HFA) 90 mcg/actuation inhaler Inhale 2 Puffs as instructed every 4 hours as needed for wheezing/shortness of breath. donepezil (ARICEPT) 10 mg tablet Take 1 tablet by mouth daily at bedtime. ketoconazole (NIZORAL) 2 % cream Apply to affected area two times a day. amitriptyline (ELAVIL) 10 mg tablet Take 1 tablet by mouth daily at bedtime. loratadine (CLARITIN) 10 mg tablet Take 1 tablet by mouth once daily. methotrexate 2.5 mg tablet TAKE 5 TABLET(S) ORAL ONCE A WEEK START 4 TABS ONCE A WEEK FOR 2 WEEKS famotidine (PEPCID) 10 mg tablet Take 1 tablet by mouth two times a day. Azelaic Acid (FINACEA) 15 % gel Apply to affected area once daily. fluorometholone (FML LIQUID FILM) 0.1 % ophthalmic suspension Use 1 Drop in both eyes once daily. FOLIC ACID ORAL Take by mouth. No current facility-administered medications on file prior to visit. Review of Systems: See HPI, otherwise negative Physical Exam: BP 120/72 (BP Site: Left Arm, BP Position: Sitting, BP Cuff Size: Regular Adult) Pulse (!) 51 Temp 36.3 ?C (97.3 ?F) Wt 54.1 kg (119 lb 4 oz) SpO2 99% BMI 24.92 kg/m? GENERAL: NAD, alert and oriented. SKIN: Unremarkable, no rash or skin lesions. LUNGS: Clear to auscultation bilaterally, no wheezes/rhonchi/rales. HEART: Regular rate and rhythm, no murmurs. No ectopy. ABDOMEN: Soft, non-tender, normal bowel sounds. EXTREMITIES: Normal, no deformities, no skin discoloration, no edema. NEURO: Awake, alert and oriented x3, cranial nerves II-XII grossly intact, normal gait, no involuntary motions. Diagnostics Reviewed: Labs - ER labs: Normal, no abnormalities found Imaging - MRI: Stable pancreatic cyst Assessment/Plan: 1. JOSHUA (generalized anxiety disorder) (F41.1) 2. Acute left-sided low back pain without sciatica (M54.50) 3. Chronic left-sided low back pain without sciatica (M54.50) - Left-sided low back pain with intermittent swelling, exacerbated by physical activities such as shoveling snow and picking up sticks. - Ordered lumbar spine X-ray to rule out any underlying structural abnormalities. - Recommended regular exercise, including walking, to improve mobility and reduce pain. - Will review X-ray results and follow up with patient. 4. Nausea and vom (more content not included)... [facility] 06-03-2024 History of Present illness Narrative 06/03/2024 The patient consented to the use of [employer] software for draft documentation of the visit consistent with [facility] s Notice of Privacy Practices. HPI: Anaya is an 84-year-old female presenting for follow-up after an ED visit for nausea and emesis, with additional complaints of abdominal pain, left leg pain, and left lower back pain. Nausea and Emesis: - ED visit approximately 2 weeks ago for nausea and emesis. - Symptoms lasted about a day; received IV antiemetics in the ED with resolution of symptoms. - No diarrhea reported. - Prescribed Zofran PRN for nausea; minimal use since ED visit. Abdominal Pain: - Intermittent abdominal pain. - Follow-up with Dr. Mendez at [facility] scheduled in September. - History of pancreatic cyst, stable on MRI. Left Leg Pain: - Pain in the left romero area, sometimes occurring while walking or at home. - Pain does not radiate to the foot. Left Lower Back Pain: - Pain in the left lower back, described as a muscle pain with occasional swelling. - Pain exacerbated by certain movements and activities, such as picking up sticks in the yard. - Onset believed to be related to repetitive motion from shoveling snow. 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 Dementia (HCC) Diverticulosis of colon (without mention of hemorrhage) Dry cough 05/23/2016 Ganglion of joint 07/16/2005 Generalized osteoarthrosis, unspecified site Hemorrhage of gastrointestinal tract, unspecified Hemorrhage of rectum and anus Hypertension Infection of left eye Irritable bowel syndrome Osteomalacia, unspecified Other and unspecified hyperlipidemia Pneumonia, organism unspecified(486) PONV (postoperative nausea and vomiting) Psoriatic arthritis (HCC) Rectocele 01/05/2011 Skin tear of lower leg without complication 05/23/2016 Sprain of unspecified site of sacroiliac region Unspecified constipation Urge incontinence mild Current Outpatient Medications on File Prior to Visit Medication Sig hydrocortisone (ANUSOL-HC) 25 mg suppository 1 Suppository by RECTAL route two times a day as needed (hemorrhoids/rectal pain). benzonatate (TESSALON PERLE) 100 mg capsule Take 2 capsules by mouth three times a day as needed. albuterol HFA (PROVENTIL HFA, VENTOLIN HFA) 90 mcg/actuation inhaler Inhale 2 Puffs as instructed every 4 hours as needed for wheezing/shortness of breath. donepezil (ARICEPT) 10 mg tablet Take 1 tablet by mouth daily at bedtime. ketoconazole (NIZORAL) 2 % cream Apply to affected area two times a day. amitriptyline (ELAVIL) 10 mg tablet Take 1 tablet by mouth daily at bedtime. loratadine (CLARITIN) 10 mg tablet Take 1 tablet by mouth once daily. methotrexate 2.5 mg tablet TAKE 5 TABLET(S) ORAL ONCE A WEEK START 4 TABS ONCE A WEEK FOR 2 WEEKS famotidine (PEPCID) 10 mg tablet Take 1 tablet by mouth two times a day. Azelaic Acid (FINACEA) 15 % gel Apply to affected area once daily. fluorometholone (FML LIQUID FILM) 0.1 % ophthalmic suspension Use 1 Drop in both eyes once daily. FOLIC ACID ORAL Take by mouth. No current facility-administered medications on file prior to visit. Review of Systems: See HPI, otherwise negative Physical Exam: BP 120/72 (BP Site: Left Arm, BP Position: Sitting, BP Cuff Size: Regular Adult) Pulse (!) 51 Temp 36.3 C (97.3 F) Wt 54.1 kg (119 lb 4 oz) SpO2 99% BMI 24.92 kg/m GENERAL: NAD, alert and oriented. SKIN: Unremarkable, no rash or skin lesions. LUNGS: Clear to auscultation bilaterally, no wheezes/rhonchi/rales. HEART: Regular rate and rhythm, no murmurs. No ectopy. ABDOMEN: Soft, non-tender, normal bowel sounds. EXTREMITIES: Normal, no deformities, no skin discoloration, no edema. NEURO: Awake, alert and oriented x3, cranial nerves II-XII grossly intact, normal gait, no involuntary motions. Diagnostics Reviewed: Labs - ER labs: Normal, no abnormalities found Imaging - MRI: Stable pancreatic cyst Assessment/Plan: 1. JOSHUA (generalized anxiety disorder) (F41.1) 2. Acute left-sided low back pain without sciatica (M54.50) 3. Chronic left-sided low back pain without sciatica (M54.50) - Left-sided low back pain with intermittent swelling, exacerbated by physical activities such as shoveling snow and picking up sticks. - Ordered lumbar spine X-ray to rule out any underlying structural abnormalities. - Recommended regular exercise, including walking, to improve mobility and reduce pain. - Will review X-ray results and follow up with patient. 4. Nausea and vomiting, unspecified vomiting type (R11.2) - Recent episode of nausea and vomiting treated in the ER with IV antiemetics; symptoms have since resolved. - Prescribed Zofran for prn use to manage any future episodes of nausea. - Awaiting further evaluation by gastroenterology. 5. Pancreatic cyst (HCC) (K86.2) - Pancreatic cyst previously evaluated by Dr. Thapa; MRI shows stability. - Continue monitoring with scheduled follow-up appointments. 6. Left medial tibial stress syndrome, initial encounter (V70.429D) - Intermittent pain in the left romero area, likely consistent with medial tibial stress syndrome. - Advised application of ice and stretching exercises to alleviate symptoms. - Encouraged regular physical activity to strengthen the affected area. The patient indicates understanding of these issues and agrees with the plan. Red flag symptoms reviewed as needed. Follow up: Angeline Monterroso APRN.CNP documented in this encounter [facility] 06-03-2024 Telephone encounter Note Prescription Refill Information The patient has been identified by name and date of : Yes Caregiver verified no other encounters exist for this prescription request: Yes Caregiver confirmed with patient/requestor that no other refills are due, in the near future, with this provider at this time: Yes The last office visit in the department: 06-02-24 Does the patient have a future office visit with this provider/department: Yes Requested Prescriptions Pending Prescriptions Disp Refills losartan (COZAAR) 25 mg tablet 90 tablet 1 Sig: Take 1 tablet by mouth once daily. Nola Joy June 03, 2024 11:03 AM [facility] 06-03-2024 Miscellaneous Notes Prescription Refill Information The patient has been identified by name and date of : Yes Caregiver verified no other encounters exist for this prescription request: Yes Caregiver confirmed with patient/requestor that no other refills are due, in the near future, with this provider at this time: Yes The last office visit in the department: 06-02-24 Does the patient have a future office visit with this provider/department: Yes Requested Prescriptions Pending Prescriptions Disp Refills losartan (COZAAR) 25 mg tablet 90 tablet 1 Sig: Take 1 tablet by mouth once daily. Nola Joy June 03, 2024 11:03 AM documented in this encounter [facility] 06-02-2024 History of Present illness Narrative Radiology Service Progress Note PATIENT NAME: Anaya Wilson DATE OF SERVICE: June 02, 2024 TIME: 12:19 PM PATIENT IDENTITY VERIFICATION COMPLETED USING TWO (2) IDENTIFIERS: Name and Date of confirmed by patient verbally. FALL SCREENING: Has the patient had 2 falls in the last year or 1 fall with injury or currently using an Ambulatory Assistive Device (Walker, Cane, Wheelchair, Crutches, etc.)? No PATIENT GENDER DATA: Assigned female at . status: : No status: NO. PATIENT RELEVANT IMPLANT DATA REVIEWED: Not Applicable PATIENT PRESENTS WITH AN IMPLANTABLE OR ATTACHED PANTOGRAPH I ENGRAVER: No RADIOLOGY DEPARTMENT: General X-ray: Exam(s) Completed: Spine X-Ray(s): Thoracic and Lumbar AP / LAT / L5-S1 PERIPHERAL IV DATA: Not applicable SIGNED BY: RT Boy(R) June 02, 2024 12:19 PM documented in this encounter [facility] 06-02-2024 Note HNO ID: [id number] Author: GRACE CR RT(R) Service: Radiology Author Type: Technologist Type: Progress Notes Filed: 06/02/2024 12:31 Note Text: Radiology Service Progress Note PATIENT NAME: Anaya Wilson DATE OF SERVICE: June 02, 2024 TIME: 12:19 PM PATIENT IDENTITY VERIFICATION COMPLETED USING TWO (2) IDENTIFIERS: Name and Date of confirmed by patient verbally. FALL SCREENING: Has the patient had 2 falls in the last year or 1 fall with injury or currently using an Ambulatory Assistive Device (Walker, Cane, Wheelchair, Crutches, etc.)? No PATIENT GENDER DATA: Assigned female at . status: : No status: NO. PATIENT RELEVANT IMPLANT DATA REVIEWED: Not Applicable PATIENT PRESENTS WITH AN IMPLANTABLE OR ATTACHED PANTOGRAPH I ENGRAVER: No RADIOLOGY DEPARTMENT: General X-ray: Exam(s) Completed: Spine X-Ray(s): Thoracic and Lumbar AP / LAT / L5-S1 PERIPHERAL IV DATA: Not applicable SIGNED BY: RT Boy(R) June 02, 2024 12:19 PM [facility] 05-08-2024 Telephone encounter Note Spoke with pt gave information provided. Pt voices understanding. [facility] 05-08-2024 Miscellaneous Notes Spoke with pt gave information provided. Pt voices understanding. PLease call patient and let her know that urine culture was negative. Continue with antibiotic if giving relief. Thank you, Kandi Park APRN.SHIP KEEPER documented in this encounter [facility] 05-08-2024 Telephone encounter Note PLease call patient and let her know that urine culture was negative. Continue with antibiotic if giving relief. Thank you, Kandi Park APRN.SHIP KEEPER [facility] 05-06-2024 History of Present illness Narrative Chief Complaint Patient presents with: Urinary Frequency: For about 2-3 days completed celphalexin on 05/03 HPI Anaya Wilson is a 84 year old female who presents here today for Above Complaints. Anaya is an established patient of Dr. Bharat DO. Concerns today.. Was seen at [facility] on 04/26 d/t urinary urgency/frequency and cough/congestion. Per note: ASSESSMENT/PLAN: 1. Urinary frequency - ICD9: 788.41, ICD10: R35.0 (primary diagnosis) acute - UA positive for klever esterase and hematuria - Send urine for culture - Begin treatment with cephalexin for 7 days - Patient education for prevention given Back pain I feel is musculoskeletal - UA DIP, URINE (POC) - BACTERIAL CULTURE, URINE - CEPHALEXIN 500 MG CAPSULE 2. Acute cough - ICD9: 786.2, ICD10: R05.1 No xray at time of exam. Return tomorrow xray -If you experience chest pain/shortness of breath go to ER - XR CHEST 2V FRONTAL/LAT - BENZONATATE 100 MG CAPSULE CXR was normal. Today in office... Finished cephalexin antibiotic on 05/03. About 1-2 days later, all of the same symptoms started to arise again. Pt c/o urinary frequency and urgency. No burning with urination. Hx of recurrent UTIs. Normally does well on keflex regimen per pt. Pt denies any vaginal discharge or itchiness. No back pain yet, just lower pelvic pressure occasionally. Urine culture form 04/26 showed mixed microbiota. No other concerns or complaints. Past medical history, appointments, medications, allergies reviewed. 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 Dementia ([facility]) Diverticulosis of colon (without mention of hemorrhage) Dry cough 05/23/2016 Ganglion of joint 07/16/2005 Generalized osteoarthrosis, unspecified site Hemorrhage of gastrointestinal tract, unspecified Hemorrhage of rectum and anus Hypertension Infection of left eye Irritable bowel syndrome Osteomalacia, unspecified Other and unspecified hyperlipidemia Pneumonia, organism unspecified(486) PONV (postoperative nausea and vomiting) Psoriatic arthritis (HCC) Rectocele 01/05/2011 Skin tear of lower leg without complication 05/23/2016 Sprain of unspecified site of sacroiliac region Unspecified constipation Urge incontinence mild Previous Surgical History PAST SURGICAL HISTORY Procedure Laterality Date ARTHRP KNE CONDYLE&PLATU MEDIAL&LAT COMPARTMENTS Right 06/03/2017 Knee replacement, total COLONOSCOPY 05/10/2022 rectal mass COLONOSCOPY FLX DX W/COLLJ SPEC WHEN PFRMD 04/20/2002 Colonoscopy COLONOSCOPY FLX DX W/COLLJ SPEC WHEN PFRMD 07/25/2011 Colonoscopy EYE SURGERY HX JOINT REPLACEMENT HX NEUROPLASTY &/TRANSPOS MEDIAN NRV CARPAL TUNNE 1979 Carpal tunnel decomp b/l hands NEUROPLASTY &/TRANSPOS MEDIAN NRV CARPAL TUNNE 12/18/2011 RIGHT PAST SURGICAL HISTORY OF Left laser eye surgery for glaucoma SIGMOIDOSCOPY FLX DX W/COLLJ SPEC BR/WA IF PFRMD 06/23/2007 TOTAL ABDOMINAL HYSTERECT W/WO RMVL TUBE OVARY 1988 RUBI/BSO for fibroids and bleeding TOTAL KNEE REPLACEMENT Left 03/28/2020 VAGINAL HYSTERECTOMY Family History FAMILY HISTORY Problem Relation Age of Onset Heart Mother CHF Cancer Father prostate Psychiatry Father Cancer Brother No Known Problems Daughter No Known Problems Daughter No Known Problems Daughter Breast Cancer Maternal Aunt Colon Cancer No Family History Patient Allergies ALLERGIES Allergen Reactions Caffeine Codeine Darvocet A500 [Prop* Vomiting Demerol [Meperidine* Vomiting Entex [Phenylephrin* Ephedrine Other: See Comments Heart palpitations Griseofulvin Milk Containing Pro* Intolerance Nasal stuffiness Tramadol Other: See Comments Nausea, vomiting, dry heaves after carpal tunnel surgery Vicodin [Hydrocodon* Itching Zoloft [Sertraline * Mental Status Change Increased anxiety and feeling of depression. Started in 2005, not noted then Current Medications Current Outpatient Medications on File Prior to Visit Medication Sig hydrocortisone (ANUSOL-HC) 25 mg suppository 1 Suppository by RECTAL route two times a day as needed (hemorrhoids/rectal pain). benzonatate (TESSALON PERLE) 100 mg capsule Take 2 capsules by mouth three times a day as needed. albuterol HFA (PROVENTIL HFA, VENTOLIN HFA) 90 mcg/actuation inhaler Inhale 2 Puffs as instructed every 4 hours as needed for wheezing/shortness of breath. donepezil (ARICEPT) 10 mg tablet Take 1 tablet by mouth daily at bedtime. cyclobenzaprine (FLEXERIL) 5 mg tablet Take 1 tablet by mouth three times a day as needed. ketoconazole (NIZORAL) 2 % cream Apply to affected area two times a day. amitriptyline (ELAVIL) 10 mg tablet Take 1 tablet by mouth daily at bedtime. loratadine (CLARITIN) 10 mg tablet Take 1 tablet by mouth once daily. methotrexate 2.5 mg tablet TAKE 5 TABLET(S) ORAL ONCE A WEEK START 4 TABS ONCE A WEEK FOR 2 WEEKS losartan (COZAAR) 25 mg tablet Take 1 tablet by mouth once daily. FLUoxetine (PROZAC) 10 mg capsule Take 1 capsule by mouth once daily. famotidine (PEPCID) 10 mg tablet Take 1 tablet by mouth two times a day. Azelaic Acid (FINACEA) 15 % gel Apply to affected area once daily. fluorometholone (FML LIQUID FILM) 0.1 % ophthalmic suspension Use 1 Drop in both eyes once daily. FOLIC ACID ORAL Take by mouth. No current facility-administered medications on file prior to visit. Social History Social History Tobacco Use Smoking status: Never Smokeless tobacco: Never Vaping Use Vaping status: Never Used Substance Use Topics Alcohol use: No Drug use: No REVIEW OF SYSTEMS: as above Reviewed relevant PMHx, PSHx, Social Hx, current medications and allergies. Review of Symptoms REVIEW OF SYSTEMS See HPI. EXAM: BP 110/62 Pulse (!) 54 Temp 36.8 C (98.2 F) Resp 12 Wt 55.2 kg (121 lb 9.6 oz) SpO2 98% BMI 25.41 kg/m General Appearance: Well appearing, alert, in no acute distress, well-hydrated, well nourished.. Skin: Skin color, texture, turgor normal, no suspicious rashes or lesions. Head: Normocephalic, no masses, lesions, tenderness or abnormalities. Abdomen: Normal abdominal exam, Abdomen soft, non-tender. Bowel sounds normal. No masses, organomegaly, Negative CVA tenderness. Health Maintenance List Pneumococcal Vaccine: 50+(1 of 2 - PCV) Never done Shingrix Vaccine(1 of 2) due on 11/03/2012 RSV Vaccine(1 - 1-dose 75+ series) Never done Influenza Vaccine(1) due on 08/31/2024 Covid-19 Vaccine(1) due on 01/21/2025 Diabetes Screening due on 03/23/2027 DTaP,Tdap,Td Vaccine(4 - Td or Tdap) due on 11/23/2032 Bone Density Screening Completed Spirometry Completed Cervical Cancer Screening Discontinued Colorectal Cancer Screening Discontinued Advance Directive Discussion Discontinued Data reviewed ASSESSMENT/PLAN: 1. Urinary frequency - ICD9: 788.41, ICD10: R35.0 Acute - UA positive for klever esterase - Send urine for culture - Begin treatment with Bactrim DS BID for 10 days Switched regimen to bactrim antibiotic. If symptoms do not improve or return quickly -- will likely need to go to urology for recurrent UTIs. Increase fluids. - Patient education for prevention given - UA DIP, URINE (POC) - BACTERIAL CULTURE, URINE Prescription instructions reviewed with patient as applicable. Potential red flag symptoms discussed with the patient. Reviewed appropriate action plan to take if red flag symptoms occur. Patient agreeable to treatment plan. Kandi Contreras APRN.SHIP KEEPER [address] [place] [address] documented in this encounter [facility] 05-06-2024 Note HNO ID: [id number] Author: KANDI PARK APRN.KEVIN Service: ? Author Type: Nurse Practitioner Type: Progress Notes Filed: 05/06/2024 11:24 Note Text: Chief Complaint Patient presents with: Urinary Frequency: For about 2-3 days completed celphalexin on 05/03 HPI Anaya Wilson is a 84 year old female who presents here today for Above Complaints. Anaya is an established patient of Dr. Bharat DO. Concerns today.. Was seen at [facility] on 04/26 d/t urinary urgency/frequency and cough/congestion. Per note: ASSESSMENT/PLAN: 1. Urinary frequency - ICD9: 788.41, ICD10: R35.0 (primary diagnosis) acute - UA positive for klever esterase and hematuria - Send urine for culture - Begin treatment with cephalexin for 7 days - Patient education for prevention given Back pain I feel is musculoskeletal - UA DIP, URINE (POC) - BACTERIAL CULTURE, URINE - CEPHALEXIN 500 MG CAPSULE 2. Acute cough - ICD9: 786.2, ICD10: R05.1 No xray at time of exam. Return tomorrow xray -If you experience chest pain/shortness of breath go to ER - XR CHEST 2V FRONTAL/LAT - BENZONATATE 100 MG CAPSULE CXR was normal. Today in office... Finished cephalexin antibiotic on 05/03. About 1-2 days later, all of the same symptoms started to arise again. Pt c/o urinary frequency and urgency. No burning with urination. Hx of recurrent UTIs. Normally does well on keflex regimen per pt. Pt denies any vaginal discharge or itchiness. No back pain yet, just lower pelvic pressure occasionally. Urine culture form 04/26 showed mixed microbiota. No other concerns or complaints. Past medical history, appointments, medications, allergies reviewed. 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 Dementia (HCC) Diverticulosis of colon (without mention of hemorrhage) Dry cough 05/23/2016 Ganglion of joint 07/16/2005 Generalized osteoarthrosis, unspecified site Hemorrhage of gastrointestinal tract, unspecified Hemorrhage of rectum and anus Hypertension Infection of left eye Irritable bowel syndrome Osteomalacia, unspecified Other and unspecified hyperlipidemia Pneumonia, organism unspecified(486) PONV (postoperative nausea and vomiting) Psoriatic arthritis (HCC) Rectocele 01/05/2011 Skin tear of lower leg without complication 05/23/2016 Sprain of unspecified site of sacroiliac region Unspecified constipation Urge incontinence mild Previous Surgical History PAST SURGICAL HISTORY Procedure Laterality Date ARTHRP KNE CONDYLEANDPLATU MEDIALANDLAT COMPARTMENTS Right 06/03/2017 Knee replacement, total COLONOSCOPY 05/10/2022 rectal mass COLONOSCOPY FLX DX W/COLLJ SPEC WHEN PFRMD 04/20/2002 Colonoscopy COLONOSCOPY FLX DX W/COLLJ SPEC WHEN PFRMD 07/25/2011 Colonoscopy EYE SURGERY HX JOINT REPLACEMENT HX NEUROPLASTY AND/TRANSPOS MEDIAN NRV CARPAL TUNNE 1979 Carpal tunnel decomp b/l hands NEUROPLASTY AND/TRANSPOS MEDIAN NRV CARPAL TUNNE 12/18/2011 RIGHT PAST SURGICAL HISTORY OF Left laser eye surgery for glaucoma SIGMOIDOSCOPY FLX DX W/COLLJ SPEC BR/WA IF PFRMD 06/23/2007 TOTAL ABDOMINAL HYSTERECT W/WO RMVL TUBE OVARY 1988 RUBI/BSO for fibroids and bleeding TOTAL KNEE REPLACEMENT Left 03/28/2020 VAGINAL HYSTERECTOMY Family History FAMILY HISTORY Problem Relation Age of Onset Heart Mother CHF Cancer Father prostate Psychiatry Father Cancer Brother No Known Problems Daughter No Known Problems Daughter No Known Problems Daughter Breast Cancer Maternal Aunt Colon Cancer No Family History Patient Allergies ALLERGIES Allergen Reactions Caffeine Codeine Darvocet A500 [Prop* Vomiting Demerol [Meperidine* Vomiting Entex [Phenylephrin* Ephedrine Other: See Comments Heart palpitations Griseofulvin Milk Containing Pro* Intolerance Nasal stuffiness Tramadol Other: See Comments Nausea, vomiting, dry heaves after carpal tunnel surgery Vicodin [Hydrocodon* Itching Zoloft [Sertraline * Mental Status Change Increased anxiety and feeling of depression. Started in 2005, not noted then Current Medications Current Outpatient Medications on File Prior to Visit Medication Sig hydrocortisone (ANUSOL-HC) 25 mg suppository 1 Suppository by RECTAL route two times a day as needed (hemorrhoids/rectal pain). benzonatate (TESSALON PERLE) 100 mg capsule Take 2 capsules by mouth three times a day as needed. albuterol HFA (PROVENTIL HFA, VENTOLIN HFA) 90 mcg/actuation inhaler Inhale 2 Puffs as instructed every 4 hours as needed for wheezing/shortness of breath. donepezil (ARICEPT) 10 mg tablet Take 1 tablet by mouth daily at bedtime. cyclobenzaprine (FLEXERIL) 5 mg tablet Take 1 tablet by mo (more content not included)... [facility] 04-30-2024 History of Present illness Narrative Radiology Service Progress Note DATE OF SERVICE: April 30, 2024 TIME: 11:40 AM PATIENT IDENTITY VERIFICATION COMPLETED USING TWO (2) STANDARD IDENTIFIERS: Name and Date of confirmed by patient verbally. FALL SCREENING: Has the patient had 2 falls in the last year or 1 fall with injury or currently using an Ambulatory Assistive Device (Walker, Cane, Wheelchair, Crutches, etc.)? No PATIENT GENDER DATA: Assigned female at . status: : No status: NO. PATIENT RELEVANT IMPLANT DATA REVIEWED: Yes PATIENT PRESENTS WITH AN IMPLANTABLE OR ATTACHED PANTOGRAPH I ENGRAVER: No ALLERGIES: Reviewed and unchanged CONTRAST ALLERGY: NO. EXAM: MRI - CONTRAST TYPE: GROUP II PERIPHERAL IV DATA: Ambulatory: A peripheral IV was started in the Left antecubital site with a Angio cath: 22 gauge. RADIOLOGY DEPARTMENT: MR; Exam(s) Completed: Body: Pancreas/Biliary SIGNATURE: RT Bhargav(Boogie) PATIENT NAME: Anaya Wilson DATE: April 30, 2024 TIME: 11:40 AM documented in this encounter [facility] 04-30-2024 Note HNO ID: [id number] Author: SONG WELCH RT(R) Service: ? Author Type: Technologist Type: Progress Notes Filed: 04/30/2024 11:41 Note Text: Radiology Service Progress Note DATE OF SERVICE: April 30, 2024 TIME: 11:40 AM PATIENT IDENTITY VERIFICATION COMPLETED USING TWO (2) STANDARD IDENTIFIERS: Name and Date of confirmed by patient verbally. FALL SCREENING: Has the patient had 2 falls in the last year or 1 fall with injury or currently using an Ambulatory Assistive Device (Walker, Cane, Wheelchair, Crutches, etc.)? No PATIENT GENDER DATA: Assigned female at . status: : No status: NO. PATIENT RELEVANT IMPLANT DATA REVIEWED: Yes PATIENT PRESENTS WITH AN IMPLANTABLE OR ATTACHED PANTOGRAPH I ENGRAVER: No ALLERGIES: Reviewed and unchanged CONTRAST ALLERGY: NO. EXAM: MRI - CONTRAST TYPE: GROUP II PERIPHERAL IV DATA: Ambulatory: A peripheral IV was started in the Left antecubital site with a Angio cath: 22 gauge. RADIOLOGY DEPARTMENT: MR; Exam(s) Completed: Body: Pancreas/Biliary SIGNATURE: RT Bhargav(R) PATIENT NAME: Anaya Wilson DATE: April 30, 2024 TIME: 11:40 AM [facility] 04-29-2024 Telephone encounter Note Prescription Refill Information The patient has been identified by name and date of : Yes Caregiver verified no other encounters exist for this prescription request: Yes Caregiver confirmed with patient/requestor that no other refills are due, in the near future, with this provider at this time: Yes The last office visit in the department: 03/25/24 Does the patient have a future office visit with this provider/department: Yes 06/08/24 Requested Prescriptions Pending Prescriptions Disp Refills hydrocortisone (ANUSOL-HC) 25 mg suppository 12 Each 3 Si Suppository by RECTAL route two times a day as needed (hemorrhoids/rectal pain). Elise Jones April 29, 2024 11:33 AM [facility] 04-29-2024 Miscellaneous Notes Prescription Refill Information The patient has been identified by name and date of : Yes Caregiver verified no other encounters exist for this prescription request: Yes Caregiver confirmed with patient/requestor that no other refills are due, in the near future, with this provider at this time: Yes The last office visit in the department: 03/25/24 Does the patient have a future office visit with this provider/department: Yes 06/08/24 Requested Prescriptions Pending Prescriptions Disp Refills hydrocortisone (ANUSOL-HC) 25 mg suppository 12 Each 3 Si Suppository by RECTAL route two times a day as needed (hemorrhoids/rectal pain). Elise Jones April 29, 2024 11:33 AM documented in this encounter [facility] 04-27-2024 Telephone encounter Note Patient returned call and given provider's message below and patient verbalized understanding. Tariq Harkins RN [facility] 04-27-2024 Miscellaneous Notes Patient returned call and given provider's message below and patient verbalized understanding. Tariq Harkins RN Message left for pt to call back for results. Ramona Cantrell MA Please notify chest ray normal, likely viral illness. Continue with atb for uti. F/u with pcp if cough persist 1 week. Urgent f/u for worsening s/s documented in this encounter [facility] 04-27-2024 Telephone encounter Note Message left for pt to call back for results. Ramona Cantrell MA [facility] 04-27-2024 Telephone encounter Note Please notify chest ray normal, likely viral illness. Continue with atb for uti. F/u with pcp if cough persist 1 week. Urgent f/u for worsening s/s [facility] 04-27-2024 History of Present illness Narrative Radiology Service Progress Note PATIENT NAME: Anaya Wilson DATE OF SERVICE: April 27, 2024 TIME: 11:31 AM PATIENT IDENTITY VERIFICATION COMPLETED USING TWO (2) IDENTIFIERS: Name and Date of confirmed by patient verbally. FALL SCREENING: Has the patient had 2 falls in the last year or 1 fall with injury or currently using an Ambulatory Assistive Device (Walker, Cane, Wheelchair, Crutches, etc.)? No PATIENT GENDER DATA: Assigned female at . status: : No status: NO. PATIENT RELEVANT IMPLANT DATA REVIEWED: Yes PATIENT PRESENTS WITH AN IMPLANTABLE OR ATTACHED PANTOGRAPH I ENGRAVER: No RADIOLOGY DEPARTMENT: General X-ray: Exam(s) Completed: Chest X-Ray PERIPHERAL IV DATA: Not applicable SIGNED BY: RT Erica(Boogie) April 27, 2024 11:31 AM documented in this encounter [facility] 04-27-2024 Note HNO ID: [id number] Author: JERMAINE KRUGER RT(R) Service: ? Author Type: Bull Gang Worker Type: Progress Notes Filed: 04/27/2024 11:38 Note Text: Radiology Service Progress Note PATIENT NAME: Anaya Wilson DATE OF SERVICE: April 27, 2024 TIME: 11:31 AM PATIENT IDENTITY VERIFICATION COMPLETED USING TWO (2) IDENTIFIERS: Name and Date of confirmed by patient verbally. FALL SCREENING: Has the patient had 2 falls in the last year or 1 fall with injury or currently using an Ambulatory Assistive Device (Walker, Cane, Wheelchair, Crutches, etc.)? No PATIENT GENDER DATA: Assigned female at . status: : No status: NO. PATIENT RELEVANT IMPLANT DATA REVIEWED: Yes PATIENT PRESENTS WITH AN IMPLANTABLE OR ATTACHED PANTOGRAPH I ENGRAVER: No RADIOLOGY DEPARTMENT: General X-ray: Exam(s) Completed: Chest X-Ray PERIPHERAL IV DATA: Not applicable SIGNED BY: Jermaine Kruger, RT(R) April 27, 2024 11:31 AM [facility] 04-26-2024 Note HNO ID: [id number] Author: SHERRIE GONZALES APRN.SHIP KEEPER Service: ? Author Type: Nurse Practitioner Type: Progress Notes Filed: 04/26/2024 14:05 Note Text: Subjective HPI HPI Anaya Wilson is a 84 year old female who presents today for CC of cough/congestion for 1 week. Has tried otc medication for relief. Symptoms are worsened by nothing. No sick exposures. Urinary urgency, frequency for 1 week, also having left back pain. Denies fever, abd pain. Hx of uti. Back pains started after shoveling snow. 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 Dementia (HCC) Diverticulosis of colon (without mention of hemorrhage) Dry cough 05/23/2016 Ganglion of joint 07/16/2005 Generalized osteoarthrosis, unspecified site Hemorrhage of gastrointestinal tract, unspecified Hemorrhage of rectum and anus Hypertension Infection of left eye Irritable bowel syndrome Osteomalacia, unspecified Other and unspecified hyperlipidemia Pneumonia, organism unspecified(486) PONV (postoperative nausea and vomiting) Psoriatic arthritis (HCC) Rectocele 01/05/2011 Skin tear of lower leg without complication 05/23/2016 Sprain of unspecified site of sacroiliac region Unspecified constipation Urge incontinence mild PAST SURGICAL HISTORY Procedure Laterality Date ARTHRP KNE CONDYLEANDPLATU MEDIALANDLAT COMPARTMENTS Right 06/03/2017 Knee replacement, total COLONOSCOPY 05/10/2022 rectal mass COLONOSCOPY FLX DX W/COLLJ SPEC WHEN PFRMD 04/20/2002 Colonoscopy COLONOSCOPY FLX DX W/COLLJ SPEC WHEN PFRMD 07/25/2011 Colonoscopy EYE SURGERY HX JOINT REPLACEMENT HX NEUROPLASTY AND/TRANSPOS MEDIAN NRV CARPAL TUNNE 1979 Carpal tunnel decomp b/l hands NEUROPLASTY AND/TRANSPOS MEDIAN NRV CARPAL TUNNE 12/18/2011 RIGHT PAST SURGICAL HISTORY OF Left laser eye surgery for glaucoma SIGMOIDOSCOPY FLX DX W/COLLJ SPEC BR/WA IF PFRMD 06/23/2007 TOTAL ABDOMINAL HYSTERECT W/WO RMVL TUBE OVARY 1988 RUBI/BSO for fibroids and bleeding TOTAL KNEE REPLACEMENT Left 03/28/2020 VAGINAL HYSTERECTOMY ALLERGIES Caffeine, Codeine, Darvocet A500 [Propoxyphene N-Acetaminophen], Demerol [Meperidine (Pf)], Entex [Phenylephrine-Guaifenesin], Ephedrine, Griseofulvin, Milk Containing Products (Dairy), Tramadol, Vicodin [Hydrocodone-Acetaminophen], and Zoloft [Sertraline Hcl] MEDICATIONS albuterol HFA (PROVENTIL HFA, VENTOLIN HFA) 90 mcg/actuation inhaler Inhale 2 Puffs as instructed every 4 hours as needed for wheezing/shortness of breath. donepezil (ARICEPT) 10 mg tablet Take 1 tablet by mouth daily at bedtime. cyclobenzaprine (FLEXERIL) 5 mg tablet Take 1 tablet by mouth three times a day as needed. ketoconazole (NIZORAL) 2 % cream Apply to affected area two times a day. amitriptyline (ELAVIL) 10 mg tablet Take 1 tablet by mouth daily at bedtime. loratadine (CLARITIN) 10 mg tablet Take 1 tablet by mouth once daily. methotrexate 2.5 mg tablet TAKE 5 TABLET(S) ORAL ONCE A WEEK START 4 TABS ONCE A WEEK FOR 2 WEEKS hydrocortisone (ANUSOL-HC) 25 mg suppository 1 Suppository by RECTAL route two times a day as needed (hemorrhoids/rectal pain). losartan (COZAAR) 25 mg tablet Take 1 tablet by mouth once daily. FLUoxetine (PROZAC) 10 mg capsule Take 1 capsule by mouth once daily. famotidine (PEPCID) 10 mg tablet Take 1 tablet by mouth two times a day. Azelaic Acid (FINACEA) 15 % gel Apply to affected area once daily. fluorometholone (FML LIQUID FILM) 0.1 % ophthalmic suspension Use 1 Drop in both eyes once daily. FOLIC ACID ORAL Take by mouth. benzonatate (TESSALON PERLE) 100 mg capsule Take 2 capsules by mouth three times a day as needed. FAMILY HISTORY Problem Relation Age of Onset Heart Mother CHF Cancer Father prostate Psychiatry Father Cancer Brother No Known Problems Daughter No Known Problems Daughter No Known Problems Daughter Breast Cancer Maternal Aunt Colon Cancer No Family History Social History Tobacco Use Smoking status: Never Smokeless tobacco: Never Vaping Use Vaping status: Never Used Substance Use Topics Alcohol use: No Drug use: No Review of Systems Constitutional: Negative for chills, fever and weight loss. HENT: Positive for congestion. Negative for ear pain, nosebleeds and sore throat. Respiratory: Positive for cough. Negative for shortness of breath and wheezing. Cardiovascular: Negative for chest pain and palpitations. Gastrointestinal: Negative for abdominal pain, blood in stool, constipation, diarrhea, heartburn, melena, nausea and vomiting. Genitourinary: Positive for dysuria, frequency and urgency. Negative for flank emory (more content not included)... [facility] 04-26-2024 History of Present illness Narrative Subjective HPI HPI Anaya Wilson is a 84 year old female who presents today for CC of cough/congestion for 1 week. Has tried otc medication for relief. Symptoms are worsened by nothing. No sick exposures. Urinary urgency, frequency for 1 week, also having left back pain. Denies fever, abd pain. Hx of uti. Back pains started after shoveling snow. 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 Dementia (HCC) Diverticulosis of colon (without mention of hemorrhage) Dry cough 05/23/2016 Ganglion of joint 07/16/2005 Generalized osteoarthrosis, unspecified site Hemorrhage of gastrointestinal tract, unspecified Hemorrhage of rectum and anus Hypertension Infection of left eye Irritable bowel syndrome Osteomalacia, unspecified Other and unspecified hyperlipidemia Pneumonia, organism unspecified(486) PONV (postoperative nausea and vomiting) Psoriatic arthritis (HCC) Rectocele 01/05/2011 Skin tear of lower leg without complication 05/23/2016 Sprain of unspecified site of sacroiliac region Unspecified constipation Urge incontinence mild PAST SURGICAL HISTORY Procedure Laterality Date ARTHRP KNE CONDYLE&PLATU MEDIAL&LAT COMPARTMENTS Right 06/03/2017 Knee replacement, total COLONOSCOPY 05/10/2022 rectal mass COLONOSCOPY FLX DX W/COLLJ SPEC WHEN PFRMD 04/20/2002 Colonoscopy COLONOSCOPY FLX DX W/COLLJ SPEC WHEN PFRMD 07/25/2011 Colonoscopy EYE SURGERY HX JOINT REPLACEMENT HX NEUROPLASTY &/TRANSPOS MEDIAN NRV CARPAL TUNNE 1979 Carpal tunnel decomp b/l hands NEUROPLASTY &/TRANSPOS MEDIAN NRV CARPAL TUNNE 12/18/2011 RIGHT PAST SURGICAL HISTORY OF Left laser eye surgery for glaucoma SIGMOIDOSCOPY FLX DX W/COLLJ SPEC BR/WA IF PFRMD 06/23/2007 TOTAL ABDOMINAL HYSTERECT W/WO RMVL TUBE OVARY 1988 RUBI/BSO for fibroids and bleeding TOTAL KNEE REPLACEMENT Left 03/28/2020 VAGINAL HYSTERECTOMY ALLERGIES Caffeine, Codeine, Darvocet A500 [Propoxyphene N-Acetaminophen], Demerol [Meperidine (Pf)], Entex [Phenylephrine-Guaifenesin], Ephedrine, Griseofulvin, Milk Containing Products (Dairy), Tramadol, Vicodin [Hydrocodone-Acetaminophen], and Zoloft [Sertraline Hcl] MEDICATIONS albuterol HFA (PROVENTIL HFA, VENTOLIN HFA) 90 mcg/actuation inhaler Inhale 2 Puffs as instructed every 4 hours as needed for wheezing/shortness of breath. donepezil (ARICEPT) 10 mg tablet Take 1 tablet by mouth daily at bedtime. cyclobenzaprine (FLEXERIL) 5 mg tablet Take 1 tablet by mouth three times a day as needed. ketoconazole (NIZORAL) 2 % cream Apply to affected area two times a day. amitriptyline (ELAVIL) 10 mg tablet Take 1 tablet by mouth daily at bedtime. loratadine (CLARITIN) 10 mg tablet Take 1 tablet by mouth once daily. methotrexate 2.5 mg tablet TAKE 5 TABLET(S) ORAL ONCE A WEEK START 4 TABS ONCE A WEEK FOR 2 WEEKS hydrocortisone (ANUSOL-HC) 25 mg suppository 1 Suppository by RECTAL route two times a day as needed (hemorrhoids/rectal pain). losartan (COZAAR) 25 mg tablet Take 1 tablet by mouth once daily. FLUoxetine (PROZAC) 10 mg capsule Take 1 capsule by mouth once daily. famotidine (PEPCID) 10 mg tablet Take 1 tablet by mouth two times a day. Azelaic Acid (FINACEA) 15 % gel Apply to affected area once daily. fluorometholone (FML LIQUID FILM) 0.1 % ophthalmic suspension Use 1 Drop in both eyes once daily. FOLIC ACID ORAL Take by mouth. benzonatate (TESSALON PERLE) 100 mg capsule Take 2 capsules by mouth three times a day as needed. FAMILY HISTORY Problem Relation Age of Onset Heart Mother CHF Cancer Father prostate Psychiatry Father Cancer Brother No Known Problems Daughter No Known Problems Daughter No Known Problems Daughter Breast Cancer Maternal Aunt Colon Cancer No Family History Social History Tobacco Use Smoking status: Never Smokeless tobacco: Never Vaping Use Vaping status: Never Used Substance Use Topics Alcohol use: No Drug use: No Review of Systems Constitutional: Negative for chills, fever and weight loss. HENT: Positive for congestion. Negative for ear pain, nosebleeds and sore throat. Respiratory: Positive for cough. Negative for shortness of breath and wheezing. Cardiovascular: Negative for chest pain and palpitations. Gastrointestinal: Negative for abdominal pain, blood in stool, constipation, diarrhea, heartburn, melena, nausea and vomiting. Genitourinary: Positive for dysuria, frequency and urgency. Negative for flank pain and hematuria. Musculoskeletal: Positive for back pain. Negative for neck pain. Skin: Negative for itching and rash. Objective Blood pressure 120/68, pulse 60, temperature 36.6 C (97.9 F), resp. rate 20, weight 55.9 kg (123 lb 3.8 oz), SpO2 97%. Latest Ref Rng 03/23/2024 Protein, Total 6.3 - 8.0 g/dL 6.3 Albumin 3.9 - 4.9 g/dL 3.8 (L) Calcium 8.5 - 10.2 mg/dL 9.3 Bilirubin, Total 0.2 - 1.3 mg/dL 0.3 Alkaline Phosphatase 34 - 123 U/L 136 (H) AST 13 - 35 U/L 28 ALT 7 - 38 U/L 25 Glucose 74 - 99 mg/dL 114 (H) BUN 7 - 21 mg/dL 7 Creatinine 0.58 - 0.96 mg/dL 0.64 Sodium 136 - 144 mmol/L 138 Potassium 3.7 - 5.1 mmol/L 4.0 Chloride 98 - 107 mmol/L 102 CO2 22 - 30 mmol/L 28 Anion Gap 8 - 15 mmol/L 8 eGFR >=60 mL/min/1.73m 87 Physical Exam Constitutional: General: She is not in acute distress. Appearance: Normal appearance. She is not toxic-appearing. Cardiovascular: Rate and Rhythm: Normal rate and regular rhythm. Heart sounds: Normal heart sounds. Pulmonary: Effort: Pulmonary effort is normal. Breath sounds: Normal breath sounds. Abdominal: General: Bowel sounds are normal. Palpations: Abdomen is soft. Tenderness: There is no abdominal tenderness. There is left CVA tenderness (as well as lower back pain). Skin: General: Skin is warm and dry. ASSESSMENT/PLAN: 1. Urinary frequency - ICD9: 788.41, ICD10: R35.0 (primary diagnosis) acute - UA positive for klever esterase and hematuria - Send urine for culture - Begin treatment with cephalexin for 7 days - Patient education for prevention given Back pain I feel is musculoskeletal - UA DIP, URINE (POC) - BACTERIAL CULTURE, URINE - CEPHALEXIN 500 MG CAPSULE 2. Acute cough - ICD9: 786.2, ICD10: R05.1 No xray at time of exam. Return tomorrow xray -If you experience chest pain/shortness of breath go to ER - XR CHEST 2V FRONTAL/LAT - BENZONATATE 100 MG CAPSULE Sherrie Gonzales APRN.SHIP KEEPER documented in this encounter [facility] 04-26-2024 Instructions Sherrie Gonzaels APRN.SHIP KEEPER - 04/26/2024 1:34 PM EST Return tomorrow for chest xray Go to ER for severe or worsening symptoms. URINARY TRACT INFECTION GENERAL INFORMATION: A urinary tract infection (UTI) is an infection of the bladder or kidneys. A bladder infection, called cystitis, is the more common type. If the infection travels up to the kidneys, it is called pyelonephritis. This can be more serious. UTIs are a common problem in women. Having sexual relations can leave a woman more susceptible to developing a UTI, but it is not sexually transmitted like gonorrhea. Some women have a problem with recurrent UTIs. INSTRUCTIONS: 1. Your doctor prescribed an antibiotic to treat the UTI. Take exactly as directed. Be sure to take all the medication prescribed, even if your symptoms disappear. If you stop treatment early, the infection may not be fully treated and the symptoms could come back again. 2. Get plenty of rest. You may take acetaminophen for fever and aches. 3. Drink 6 to 8 glasses of fluids, especially water, every day. This helps wash out germs from your urinary tract. Cranberry juice or other sources of vitamin C are also good for you. 4. Urinate often, as soon as you feel the urge. Empty your bladder completely. Urinate before and after you have sex. 5. Always wipe from front to back after going to the bathroom. This pushes germs away from your bladder, rather than towards it. 6. Showers are better than baths, and you should wash the genital area daily. Avoid bubble bath or bath oils if you do take a bath. 7. Wear underwear and pantyhose with a cotton crotch. CONTACT YOUR DOCTOR: 1. You have a temperature over 102F (38.8C) after 48 hours on medication. 2. You notice blood in your urine. 3. Your symptoms don't improve in 2 days. 4. You develop nausea, vomiting, diarrhea, or a rash. 5. You develop new or unexplained symptoms. These may be related to the medication you are taking. 6. Your symptoms return after you finish treatment. RETURN TO THE EMERGENCY DEPARTMENT IF: You develop vomiting and can't keep your medication or fluids down. documented in this encounter [facility] 04-17-2024 Telephone encounter Note Patient calls and notified of results and providers instructions. Patient verbalizes understanding. Armida Warren RN [facility] 04-17-2024 Miscellaneous Notes Patient calls and notified of results and providers instructions. Patient verbalizes understanding. Armida Warren RN Tried to reach pt, line just rings. Ramona Cantrell MA ----- Message from To Sibley MD sent at 04/16/2024 10:23 AM EST ----- Negative for COVID/flu/RSV. Continue supportive care for symptoms as discussed and call if cough is worsening or she develops fever/chills, SOB, or wheezing. Return to office if not improving in 1 week. documented in this encounter [facility] 04-17-2024 Telephone encounter Note Tried to reach pt, line just rings. Ramona Cantrell MA [facility] 04-17-2024 Telephone encounter Note ----- Message from To Sibley MD sent at 04/16/2024 10:23 AM EST ----- Negative for COVID/flu/RSV. Continue supportive care for symptoms as discussed and call if cough is worsening or she develops fever/chills, SOB, or wheezing. Return to office if not improving in 1 week. [facility] 04-15-2024 Note SARS-COV-2 (AGENT OF COVID-19) RNA: Not detected INFLUENZA A RNA: Not detected INFLUENZA B RNA: Not detected RESPIRATORY SYNCYTIAL VIRUS (RSV) RNA: Not detected [facility] Comment on above: Performed By: #### 6 30-4 #### [facility] CLIA [id number] [facility] [place] [address] [place] 04-15-2024 Note HNO ID: [id number] Author: TO SIBLEY MD Service: ? Author Type: Physician Type: Progress Notes Filed: 04/15/2024 13:15 Note Text: Chief Complaint Patient presents with: URI Cough: Productive HPI Anaya Wilson is a 84 year old female who presents here today for Above Complaints. Accompanied to by her who is assisting with history due to her dementia. Patient complaining of productive cough with yellow sputum x 3-4 days. Worse in the morning. No exacerbating factors otherwise. Not taking anything OTC for cough. Denies fever/chills, SOB, wheezing, chest pain, chest congestion, headache, sore throat, myalgias, fatigue, new loss of taste/smell, nasal congestion, rhinorrhea, nausea, vomiting, diarrhea. No sick contacts or exposure to COVID or flu. Symptoms have been gradually worsening. Past medical history, appointments, medications, allergies reviewed. 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 Dementia (HCC) Diverticulosis of colon (without mention of hemorrhage) Dry cough 05/23/2016 Ganglion of joint 07/16/2005 Generalized osteoarthrosis, unspecified site Hemorrhage of gastrointestinal tract, unspecified Hemorrhage of rectum and anus Hypertension Infection of left eye Irritable bowel syndrome Osteomalacia, unspecified Other and unspecified hyperlipidemia Pneumonia, organism unspecified(486) PONV (postoperative nausea and vomiting) Psoriatic arthritis (HCC) Rectocele 01/05/2011 Skin tear of lower leg without complication 05/23/2016 Sprain of unspecified site of sacroiliac region Unspecified constipation Urge incontinence mild Previous Surgical History PAST SURGICAL HISTORY Procedure Laterality Date ARTHRP KNE CONDYLEANDPLATU MEDIALANDLAT COMPARTMENTS Right 06/03/2017 Knee replacement, total COLONOSCOPY 05/10/2022 rectal mass COLONOSCOPY FLX DX W/COLLJ SPEC WHEN PFRMD 04/20/2002 Colonoscopy COLONOSCOPY FLX DX W/COLLJ SPEC WHEN PFRMD 07/25/2011 Colonoscopy EYE SURGERY HX JOINT REPLACEMENT HX NEUROPLASTY AND/TRANSPOS MEDIAN NRV CARPAL TUNNE 1979 Carpal tunnel decomp b/l hands NEUROPLASTY AND/TRANSPOS MEDIAN NRV CARPAL TUNNE 12/18/2011 RIGHT PAST SURGICAL HISTORY OF Left laser eye surgery for glaucoma SIGMOIDOSCOPY FLX DX W/COLLJ SPEC BR/WA IF PFRMD 06/23/2007 TOTAL ABDOMINAL HYSTERECT W/WO RMVL TUBE OVARY 1988 RUBI/BSO for fibroids and bleeding TOTAL KNEE REPLACEMENT Left 03/28/2020 VAGINAL HYSTERECTOMY Family History FAMILY HISTORY Problem Relation Age of Onset Heart Mother CHF Cancer Father prostate Psychiatry Father Cancer Brother No Known Problems Daughter No Known Problems Daughter No Known Problems Daughter Breast Cancer Maternal Aunt Colon Cancer No Family History Patient Allergies ALLERGIES Allergen Reactions Caffeine Codeine Darvocet A500 [Prop* Vomiting Demerol [Meperidine* Vomiting Entex [Phenylephrin* Ephedrine Other: See Comments Heart palpitations Griseofulvin Milk Containing Pro* Intolerance Nasal stuffiness Tramadol Other: See Comments Nausea, vomiting, dry heaves after carpal tunnel surgery Vicodin [Hydrocodon* Itching Zoloft [Sertraline * Mental Status Change Increased anxiety and feeling of depression. Started in 2005, not noted then Current Medications Current Outpatient Medications on File Prior to Visit Medication Sig donepezil (ARICEPT) 10 mg tablet Take 1 tablet by mouth daily at bedtime. cyclobenzaprine (FLEXERIL) 5 mg tablet Take 1 tablet by mouth three times a day as needed. ketoconazole (NIZORAL) 2 % cream Apply to affected area two times a day. amitriptyline (ELAVIL) 10 mg tablet Take 1 tablet by mouth daily at bedtime. loratadine (CLARITIN) 10 mg tablet Take 1 tablet by mouth once daily. methotrexate 2.5 mg tablet TAKE 5 TABLET(S) ORAL ONCE A WEEK START 4 TABS ONCE A WEEK FOR 2 WEEKS hydrocortisone (ANUSOL-HC) 25 mg suppository 1 Suppository by RECTAL route two times a day as needed (hemorrhoids/rectal pain). losartan (COZAAR) 25 mg tablet Take 1 tablet by mouth once daily. FLUoxetine (PROZAC) 10 mg capsule Take 1 capsule by mouth once daily. famotidine (PEPCID) 10 mg tablet Take 1 tablet by mouth two times a day. Azelaic Acid (FINACEA) 15 % gel Apply to affected area once daily. fluorometholone (FML LIQUID FILM) 0.1 % ophthalmic suspension Use 1 Drop in both eyes once daily. FOLIC ACID ORAL Take by mouth. No current facility-administered medications on file prior to visit. Social History Social History Tobacco Use Smoking status: Never Smokeless tobacco: Never Vaping Use Vaping status: Never Used Substance Use Topics Alcohol use: No Vasu (more content not included)... [facility] 04-15-2024 History of Present illness Narrative Chief Complaint Patient presents with: URI Cough: Productive HPI Anaya Wilson is a 84 year old female who presents here today for Above Complaints. Accompanied to by her who is assisting with history due to her dementia. Patient complaining of productive cough with yellow sputum x 3-4 days. Worse in the morning. No exacerbating factors otherwise. Not taking anything OTC for cough. Denies fever/chills, SOB, wheezing, chest pain, chest congestion, headache, sore throat, myalgias, fatigue, new loss of taste/smell, nasal congestion, rhinorrhea, nausea, vomiting, diarrhea. No sick contacts or exposure to COVID or flu. Symptoms have been gradually worsening. Past medical history, appointments, medications, allergies reviewed. 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 Dementia (HCC) Diverticulosis of colon (without mention of hemorrhage) Dry cough 05/23/2016 Ganglion of joint 07/16/2005 Generalized osteoarthrosis, unspecified site Hemorrhage of gastrointestinal tract, unspecified Hemorrhage of rectum and anus Hypertension Infection of left eye Irritable bowel syndrome Osteomalacia, unspecified Other and unspecified hyperlipidemia Pneumonia, organism unspecified(486) PONV (postoperative nausea and vomiting) Psoriatic arthritis (HCC) Rectocele 01/05/2011 Skin tear of lower leg without complication 05/23/2016 Sprain of unspecified site of sacroiliac region Unspecified constipation Urge incontinence mild Previous Surgical History PAST SURGICAL HISTORY Procedure Laterality Date ARTHRP KNE CONDYLE&PLATU MEDIAL&LAT COMPARTMENTS Right 06/03/2017 Knee replacement, total COLONOSCOPY 05/10/2022 rectal mass COLONOSCOPY FLX DX W/COLLJ SPEC WHEN PFRMD 04/20/2002 Colonoscopy COLONOSCOPY FLX DX W/COLLJ SPEC WHEN PFRMD 07/25/2011 Colonoscopy EYE SURGERY HX JOINT REPLACEMENT HX NEUROPLASTY &/TRANSPOS MEDIAN NRV CARPAL TUNNE 1979 Carpal tunnel decomp b/l hands NEUROPLASTY &/TRANSPOS MEDIAN NRV CARPAL TUNNE 12/18/2011 RIGHT PAST SURGICAL HISTORY OF Left laser eye surgery for glaucoma SIGMOIDOSCOPY FLX DX W/COLLJ SPEC BR/WA IF PFRMD 06/23/2007 TOTAL ABDOMINAL HYSTERECT W/WO RMVL TUBE OVARY 1988 RUBI/BSO for fibroids and bleeding TOTAL KNEE REPLACEMENT Left 03/28/2020 VAGINAL HYSTERECTOMY Family History FAMILY HISTORY Problem Relation Age of Onset Heart Mother CHF Cancer Father prostate Psychiatry Father Cancer Brother No Known Problems Daughter No Known Problems Daughter No Known Problems Daughter Breast Cancer Maternal Aunt Colon Cancer No Family History Patient Allergies ALLERGIES Allergen Reactions Caffeine Codeine Darvocet A500 [Prop* Vomiting Demerol [Meperidine* Vomiting Entex [Phenylephrin* Ephedrine Other: See Comments Heart palpitations Griseofulvin Milk Containing Pro* Intolerance Nasal stuffiness Tramadol Other: See Comments Nausea, vomiting, dry heaves after carpal tunnel surgery Vicodin [Hydrocodon* Itching Zoloft [Sertraline * Mental Status Change Increased anxiety and feeling of depression. Started in 2005, not noted then Current Medications Current Outpatient Medications on File Prior to Visit Medication Sig donepezil (ARICEPT) 10 mg tablet Take 1 tablet by mouth daily at bedtime. cyclobenzaprine (FLEXERIL) 5 mg tablet Take 1 tablet by mouth three times a day as needed. ketoconazole (NIZORAL) 2 % cream Apply to affected area two times a day. amitriptyline (ELAVIL) 10 mg tablet Take 1 tablet by mouth daily at bedtime. loratadine (CLARITIN) 10 mg tablet Take 1 tablet by mouth once daily. methotrexate 2.5 mg tablet TAKE 5 TABLET(S) ORAL ONCE A WEEK START 4 TABS ONCE A WEEK FOR 2 WEEKS hydrocortisone (ANUSOL-HC) 25 mg suppository 1 Suppository by RECTAL route two times a day as needed (hemorrhoids/rectal pain). losartan (COZAAR) 25 mg tablet Take 1 tablet by mouth once daily. FLUoxetine (PROZAC) 10 mg capsule Take 1 capsule by mouth once daily. famotidine (PEPCID) 10 mg tablet Take 1 tablet by mouth two times a day. Azelaic Acid (FINACEA) 15 % gel Apply to affected area once daily. fluorometholone (FML LIQUID FILM) 0.1 % ophthalmic suspension Use 1 Drop in both eyes once daily. FOLIC ACID ORAL Take by mouth. No current facility-administered medications on file prior to visit. Social History Social History Tobacco Use Smoking status: Never Smokeless tobacco: Never Vaping Use Vaping status: Never Used Substance Use Topics Alcohol use: No Drug use: No Review of Symptoms REVIEW OF SYSTEMS See HPI EXAM: BP 128/62 Pulse (!) 54 Temp 36.8 C (98.2 F) (Left Tympanic) Resp 16 Wt 55.7 kg (122 lb 12.8 oz) SpO2 98% BMI 25.67 kg/m General Appearance: Well appearing, alert, in no acute distress, well-hydrated, well nourished.. Skin: Skin color, texture, turgor normal, no suspicious rashes or lesions. Head: Normocephalic, no masses, lesions, tenderness or abnormalities. Eyes: Anicteric sclera. Pupils are equally round and reactive to light. Extraocular movements are intact. . Ears: External ears normal, canals clear. Nose/Sinuses: Nares normal, septum midline, mucosa normal, no drainage or sinus tenderness. Oropharynx: Lips, mucosa, and tongue normal, teeth and gums normal, oropharynx normal. Neck: Supple, no adenopathy; thyroid symmetric, normal size, no bruits. Lungs: Lungs clear to auscultation. No wheezing, rhonchi, rales.. Heart: RRR without murmur, gallop, or rubs. No ectopy. Health Maintenance List Pneumococcal Vaccine: 50+(1 of 2 - PCV) Never done Shingrix Vaccine(1 of 2) due on 11/03/2012 RSV Vaccine(1 - 1-dose 75+ series) Never done Influenza Vaccine(1) due on 08/31/2024 Covid-19 Vaccine(1) due on 01/21/2025 Diabetes Screening due on 03/23/2027 DTaP,Tdap,Td Vaccine(4 - Td or Tdap) due on 11/23/2032 Bone Density Screening Completed Spirometry Completed Cervical Cancer Screening Discontinued Colorectal Cancer Screening Discontinued Advance Directive Discussion Discontinued ASSESSMENT/PLAN: 1. Productive cough - ICD9: 786.2, ICD10: R05.8 Normal exam today. Will swab for COVID/flu/RSV. Start tessalon for cough and will give albuterol for PRN use for her history of COPD. Discussed pushing PO fluids, rest, and supportive care. Red flags for re-assessment reviewed with patient in detail. - COVID & INFLUENZA A/B & RSV PCR, ROUTINE - ALBUTEROL SULFATE HFA 90 MCG/ACTUATION AEROSOL INHALER - BENZONATATE 100 MG CAPSULE To Sibley MD documented in this encounter [facility] 04-15-2024 Telephone encounter Note Pt called in and reports she has a cough and is bringing up slightly yellow mucus. Pt denies runny nose, SOB, and wheezing. Pt does not know if she has been running a fever. Pt scheduled with Dr Sibley today at 1240. [facility] 04-15-2024 Miscellaneous Notes Pt called in and reports she has a cough and is bringing up slightly yellow mucus. Pt denies runny nose, SOB, and wheezing. Pt does not know if she has been running a fever. Pt scheduled with Dr Sibley today at 1240. documented in this encounter [facility] 04-06-2024 Note HNO ID: [id number] Author: KATHRYN FLORES PT Service: ? Author Type: Physical Therapist Type: Progress Notes Filed: 04/06/2024 11:36 Note Text: Episode Visit Count: 1 Therapist That Will Accept/Oversee The Plan Of Care: Kathryn Flores Start of Care Date: 04/06/24 Onset Date: 03/09/24 Plan of Care Certification Date: 04/06/24 Next Certification Due Date: 04/06/24 Patient Identified by Name and Date of : Yes REHABILITATION AND SPORTS THERAPY PHYSICAL THERAPY EVALUATION PLAN OF CARE: Assessment: Anaya Wilson presents with diagnosis of acute left sided low back pain without sciatica that interferes with standing, walking . The patient presents with impairments in independence in exercise and patient reported outcome measures. PROMIS? (Patient-Reported Outcomes Measurement Information System) scores were reviewed and identified as within normal limits. Prognosis for therapy is Good due to: current objective clinical presentation . The patient will benefit from skilled therapy services to meet the goals established for this plan of care as noted below. Goals for Episode of Care: established 04/06/24 Patient Goals: DC from PT. symptoms have resolved Time Frame for Goals and Treatment : 04/06/24 Planned Interventions, Frequency, and Duration: Current Frequency: 1 visit Duration: 1 visit Total Number of Visits Planned: 1 Planned Treatment Interventions: Therapeutic exercise (66109), Self-assisted management (39684) PLAN FOR NEXT VISIT: DC -- symptoms resolved Patient demonstrates good understanding of plan of care and treatment. The above goals and plan of care were discussed and agreed upon by patient/family. SUBJECTIVE: for back pain as a result of shoveling snow about a month ago that has resolved. Flexeril and tylenol prescribed which resolved her symptoms. Walks for exercise in her house but is considering going back to [facility]. Denies pain with any movement, ADLs or currently. Pain remained localized inthe low back without radiation into the LE's. Patient Goals: DC from PT. symptoms have resolved Functional Limitations: standing, walking Prior Level of Function: Independent without limitations Relevant History Employment: Retired Recreation / Current Exercise: walk for exercise Home Environment Patient Lives With: Spouse Intake Information: Prescription present Previous Treatment: Physical Therapy , Muscle relaxer Falls Interview: Fall with injury in the last year Falls Intervention: Instructed patient on safety and use of assistive device and awareness in regards to falls prevention. Pain: Pain Pain Level: 0 Pain Location: Low Back/Lumbar Spine - Left Description: Aching Post Treatment Pain Post Treatment Pain Level: No Change Post Treatment Pain Location: Low Back/Lumbar Spine - Left PROMIS Scales 04/06/2024 Higher is Better Self-Eff Symptom - T Score 48 (Average) Self-Eff Symptom - Percentile 42 04/06/2024 Lower is Better Pain Interference - T Score 51 (within normal limits) Pain Interference - Percentile 46 T-scores: mean of general population = 50. 5 points is clinically meaningfully difference Percentiles provide an indication of how the patient's score ranks in relation to the general population. Higher percentile rankings indicate better function/quality of life. 50th percentile is the average of the general population and indicates half of respondents had a worse score. OBJECTIVE MEASURES WITH LEVEL OF FUNCTION: Education: Education Learning Preferences: Demonstration, Explanation, Performance, Printed Materials Barriers: None Learning/educational needs: Plan of Care, Home exercise program, Posture, Safety Education Provided: Yes, see treatment interventions for education provided Education Provided To: Patient Education Mode/Type: Demonstration, Explanation/Discussion, Literature/Printed Materials, Performance Response to Education/Teach Back: States/Identifies, Return Demonstration TREATMENT: PT Treatment Interventions: Therapeutic Exercise, Self-[facility] Management Evaluation Therapeutic Exercise: 1: *Access Code: [email or web address] URL: [email or web address] Date: 04/06/2024 Prepared by: Kathryn Flores Exercises - Seated Transversus Abdominis Bracing with PLB - 1-2 x daily - 7 x weekly - 2 sets - 10 reps - 1 hold - Seated Transversus Abdominis Bracing with PLB - 1-2 x daily - 7 x weekly - 2 sets - 5 reps - 10 hold - Seated Lumbar Flexion Stretch - 1-2 x daily - 7 x weekly - 2 sets - 10 reps - 1 hold Skilled Intervention: Patient was educated in proper exercise technique and purpose for exercises. Skilled judgment was used in selection of appropriate interventions. Provided written instruction for home exercise program to facilitate proper performance and compliance. Educated patient on rationale for performing exercises in regards to decreasing fatigue , increase ea (more content not included)... [facility] 04-06-2024 History of Present illness Narrative Episode Visit Count: 1 Therapist That Will Accept/Oversee The Plan Of Care: Kathryn Flores Start of Care Date: 04/06/24 Onset Date: 03/09/24 Plan of Care Certification Date: 04/06/24 Next Certification Due Date: 04/06/24 Patient Identified by Name and Date of : Yes REHABILITATION AND SPORTS THERAPY PHYSICAL THERAPY EVALUATION PLAN OF CARE: Assessment: Anaya Wilson presents with diagnosis of acute left sided low back pain without sciatica that interferes with standing, walking . The patient presents with impairments in independence in exercise and patient reported outcome measures. PROMIS (Patient-Reported Outcomes Measurement Information System) scores were reviewed and identified as within normal limits. Prognosis for therapy is Good due to: current objective clinical presentation . The patient will benefit from skilled therapy services to meet the goals established for this plan of care as noted below. Goals for Episode of Care: established 04/06/24 Patient Goals: DC from PT. symptoms have resolved Time Frame for Goals and Treatment : 04/06/24 Planned Interventions, Frequency, and Duration: Current Frequency: 1 visit Duration: 1 visit Total Number of Visits Planned: 1 Planned Treatment Interventions: Therapeutic exercise (79231), Self-assisted management (41970) PLAN FOR NEXT VISIT: DC -- symptoms resolved Patient demonstrates good understanding of plan of care and treatment. The above goals and plan of care were discussed and agreed upon by patient/family. SUBJECTIVE: for back pain as a result of shoveling snow about a month ago that has resolved. Flexeril and tylenol prescribed which resolved her symptoms. Walks for exercise in her house but is considering going back to [facility]. Denies pain with any movement, ADLs or currently. Pain remained localized inthe low back without radiation into the LE's. Patient Goals: DC from PT. symptoms have resolved Functional Limitations: standing, walking Prior Level of Function: Independent without limitations Relevant History Employment: Retired Recreation / Current Exercise: walk for exercise Home Environment Patient Lives With: Spouse Intake Information: Prescription present Previous Treatment: Physical Therapy , Muscle relaxer Falls Interview: Fall with injury in the last year Falls Intervention: Instructed patient on safety and use of assistive device and awareness in regards to falls prevention. Pain: Pain Pain Level: 0 Pain Location: Low Back/Lumbar Spine - Left Description: Aching Post Treatment Pain Post Treatment Pain Level: No Change Post Treatment Pain Location: Low Back/Lumbar Spine - Left PROMIS Scales 04/06/2024 Higher is Better Self-Eff Symptom - T Score 48 (Average) Self-Eff Symptom - Percentile 42 04/06/2024 Lower is Better Pain Interference - T Score 51 (within normal limits) Pain Interference - Percentile 46 T-scores: mean of general population = 50. 5 points is clinically meaningfully difference Percentiles provide an indication of how the patient's score ranks in relation to the general population. Higher percentile rankings indicate better function/quality of life. 50th percentile is the average of the general population and indicates half of respondents had a worse score. OBJECTIVE MEASURES WITH LEVEL OF FUNCTION: Education: Education Learning Preferences: Demonstration, Explanation, Performance, Printed Materials Barriers: None Learning/educational needs: Plan of Care, Home exercise program, Posture, Safety Education Provided: Yes, see treatment interventions for education provided Education Provided To: Patient Education Mode/Type: Demonstration, Explanation/Discussion, Literature/Printed Materials, Performance Response to Education/Teach Back: States/Identifies, Return Demonstration TREATMENT: PT Treatment Interventions: Therapeutic Exercise, Self-[facility] Management Evaluation Therapeutic Exercise: 1: *Access Code: [email or web address] URL: [email or web address] Date: 04/06/2024 Prepared by: Kathryn Mane'Keyon Exercises - Seated Transversus Abdominis Bracing with PLB - 1-2 x daily - 7 x weekly - 2 sets - 10 reps - 1 hold - Seated Transversus Abdominis Bracing with PLB - 1-2 x daily - 7 x weekly - 2 sets - 5 reps - 10 hold - Seated Lumbar Flexion Stretch - 1-2 x daily - 7 x weekly - 2 sets - 10 reps - 1 hold Skilled Intervention: Patient was educated in proper exercise technique and purpose for exercises. Skilled judgment was used in selection of appropriate interventions. Provided written instruction for home exercise program to facilitate proper performance and compliance. Educated patient on rationale for performing exercises in regards to decreasing fatigue , increase ease of ADL, and ROM and function . Patient education as noted. Self-[facility] Management: 1: discussed safe way of lifting/carrying 2: encouraged pt. to contact provider and request another order for PT should symptoms return 3: discussed purpose of each exercise and the role of the TA 4: encouraged continued movement as tolerated and regular exercise 5: discussed technique with shoveling snow or similar movement tasks such as sweeping - hand out provided: Skilled Intervention: Skilled judgment in the selection of proper modification for activity of daily living/home management based on clinical presentation, deficits, and needs. Reviewed patient specific diagnosis in relation to activities of daily living/home management. Activity progression based on professional judgement. Moderate verbal cues for maintaining neutral spine alignment. Provided written instruction for home program to facilitate proper performance and compliance. Correct performance of home program was facilitated with verbal, visual, and tactile cueing. Billing * Evaluation Low Complexity: 1 Unit Therapeutic Exercise Treatment Minutes: 10 Self-Care/Home Management Treatment Minutes: 2 Skilled Treatment Time Minutes (timed and untimed codes): 32 Total Session Time (minutes): 32 Session Start Time : 1058 Session Stop Time : 1130 Kathryn Flores PT documented in this encounter [facility] 04-02-2024 Telephone encounter Note Prescription Refill Information The patient has been identified by name and date of : Yes Caregiver verified no other encounters exist for this prescription request: Yes Caregiver confirmed with patient/requestor that no other refills are due, in the near future, with this provider at this time: Yes The last office visit in the department: 03-19-24 Does the patient have a future office visit with this provider/department: Yes Requested Prescriptions Pending Prescriptions Disp Refills donepezil (ARICEPT) 10 mg tablet 90 tablet 1 Sig: Take 1 tablet by mouth daily at bedtime. Nicole Cifuentes [facility] April 02, 2024 10:17 AM [facility] 04-02-2024 Miscellaneous Notes Prescription Refill Information The patient has been identified by name and date of : Yes Caregiver verified no other encounters exist for this prescription request: Yes Caregiver confirmed with patient/requestor that no other refills are due, in the near future, with this provider at this time: Yes The last office visit in the department: 03-19-24 Does the patient have a future office visit with this provider/department: Yes Requested Prescriptions Pending Prescriptions Disp Refills donepezil (ARICEPT) 10 mg tablet 90 tablet 1 Sig: Take 1 tablet by mouth daily at bedtime. Nicole Cifuentes [facility] April 02, 2024 10:17 AM documented in this encounter [facility] 03-25-2024 Telephone encounter Note Images from the original note were not included. Electronic PA rec'd and completed for cyclobenzapine. This was approved. Prior authorization approved Payer: [employer] [phone] Note from payer: CaseId:[id number];Status:Approved;R eview Type:Prior Auth;Coverage Start Date:02/24/2024;Coverage End Date:03/25/2025; Approval Details Authorized from February 24, 2024 to March 25, 2025 Electronic appeal: Not supported View History Pharmacy Benefits Open Encounter ANAYA WILSON [facility] ([facility]) ([employer] Lab) Covered: Retail, Mail Order Unknown: Specialty, Long-Term Care BIN: [id number] : 1940 Group ID: [id number] PCN: Legal sex: F Group name: [employer] Address: [address] [place] [address] [place] [id number] Medication Being Authorized cyclobenzaprine (FLEXERIL) 5 mg tablet Take 1 tablet by mouth three times a day as needed. Dispense: 30 tablet Refills: 1 Start: 03/25/2024 Class: Normal Diagnoses: Acute left-sided low back pain without sciatica This order has been released to its destination. To be filled at: [id number] [place] [address] - [address] [facility] [phone] [id number] [facility] 03-25-2024 Miscellaneous Notes Images from the original note were not included. Electronic PA rec'd and completed for cyclobenzapine. This was approved. Prior authorization approved Payer: [employer] [phone] Note from payer: CaseId:[id number];Status:Approved;R eview Type:Prior Auth;Coverage Start Date:02/24/2024;Coverage End Date:03/25/2025; Approval Details Authorized from February 24, 2024 to March 25, 2025 Electronic appeal: Not supported View History Pharmacy Benefits Open Encounter ANAYA WILSON - Medical [facility] ([facility]) ([employer]) Covered: Retail, Mail Order Unknown: Specialty, Long-Term Care BIN: [id number] : 1940 Group ID: [id number] PCN: Legal sex: F Group name: [employer] Address: [address] [address] [facility] [id number] Medication Being Authorized cyclobenzaprine (FLEXERIL) 5 mg tablet Take 1 tablet by mouth three times a day as needed. Dispense: 30 tablet Refills: 1 Start: 03/25/2024 Class: Normal Diagnoses: Acute left-sided low back pain without sciatica This order has been released to its destination. To be filled at: [id number] [place] [address] - [address] [facility] [phone] [id number] documented in this encounter [facility] 03-25-2024 Note HNO ID: [id number] Author: ANGELINE MONTERROSO APRN.SHIP KEEPER Service: ? Author Type: Nurse Practitioner Type: Progress Notes Filed: 03/25/2024 11:35 Note Text: Chief Complaint Patient presents with: ER F/U: Left side abd pain, muscle strain HPI Anaya Wilson is a 84 year old female who presents here today for Above Complaints.. Was seen in the ER at [facility] on 03/23 (2 days ago) for left side pain-was dx with muscle strain and given a dx of muscle strain-Flexeril has been helpful. Had been shoveling snow a couple days prior. Did take Flexeril last evening as well as Tylenol, this has been helpful. Interested in doing PT. Past medical history, appointments, medications, allergies reviewed. 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 Dementia (HCC) Diverticulosis of colon (without mention of hemorrhage) Dry cough 05/23/2016 Ganglion of joint 07/16/2005 Generalized osteoarthrosis, unspecified site Hemorrhage of gastrointestinal tract, unspecified Hemorrhage of rectum and anus Hypertension Infection of left eye Irritable bowel syndrome Osteomalacia, unspecified Other and unspecified hyperlipidemia Pneumonia, organism unspecified(486) PONV (postoperative nausea and vomiting) Psoriatic arthritis (HCC) Rectocele 01/05/2011 Skin tear of lower leg without complication 05/23/2016 Sprain of unspecified site of sacroiliac region Unspecified constipation Urge incontinence mild Previous Surgical History PAST SURGICAL HISTORY Procedure Laterality Date ARTHRP KNE CONDYLEANDPLATU MEDIALANDLAT COMPARTMENTS Right 06/03/2017 Knee replacement, total COLONOSCOPY 05/10/2022 rectal mass COLONOSCOPY FLX DX W/COLLJ SPEC WHEN PFRMD 04/20/2002 Colonoscopy COLONOSCOPY FLX DX W/COLLJ SPEC WHEN PFRMD 07/25/2011 Colonoscopy EYE SURGERY HX JOINT REPLACEMENT HX NEUROPLASTY AND/TRANSPOS MEDIAN NRV CARPAL TUNNE 1979 Carpal tunnel decomp b/l hands NEUROPLASTY AND/TRANSPOS MEDIAN NRV CARPAL TUNNE 12/18/2011 RIGHT PAST SURGICAL HISTORY OF Left laser eye surgery for glaucoma SIGMOIDOSCOPY FLX DX W/COLLJ SPEC BR/WA IF PFRMD 06/23/2007 TOTAL ABDOMINAL HYSTERECT W/WO RMVL TUBE OVARY 1988 RUBI/BSO for fibroids and bleeding TOTAL KNEE REPLACEMENT Left 03/28/2020 VAGINAL HYSTERECTOMY Family History FAMILY HISTORY Problem Relation Age of Onset Heart Mother CHF Cancer Father prostate Psychiatry Father Cancer Brother No Known Problems Daughter No Known Problems Daughter No Known Problems Daughter Breast Cancer Maternal Aunt Colon Cancer No Family History Patient Allergies ALLERGIES Allergen Reactions Caffeine Codeine Darvocet A500 [Prop* Vomiting Demerol [Meperidine* Vomiting Entex [Phenylephrin* Ephedrine Other: See Comments Heart palpitations Griseofulvin Milk Containing Pro* Intolerance Nasal stuffiness Tramadol Other: See Comments Nausea, vomiting, dry heaves after carpal tunnel surgery Vicodin [Hydrocodon* Itching Zoloft [Sertraline * Mental Status Change Increased anxiety and feeling of depression. Started in 2005, not noted then Current Medications Current Outpatient Medications on File Prior to Visit Medication Sig cyclobenzaprine (FLEXERIL) 5 mg tablet Take 1 tablet by mouth two times a day as needed for up to 5 days. ketoconazole (NIZORAL) 2 % cream Apply to affected area two times a day. amitriptyline (ELAVIL) 10 mg tablet Take 1 tablet by mouth daily at bedtime. loratadine (CLARITIN) 10 mg tablet Take 1 tablet by mouth once daily. methotrexate 2.5 mg tablet TAKE 5 TABLET(S) ORAL ONCE A WEEK START 4 TABS ONCE A WEEK FOR 2 WEEKS hydrocortisone (ANUSOL-HC) 25 mg suppository 1 Suppository by RECTAL route two times a day as needed (hemorrhoids/rectal pain). losartan (COZAAR) 25 mg tablet Take 1 tablet by mouth once daily. FLUoxetine (PROZAC) 10 mg capsule Take 1 capsule by mouth once daily. donepezil (ARICEPT) 10 mg tablet Take 1 tablet by mouth daily at bedtime. famotidine (PEPCID) 10 mg tablet Take 1 tablet by mouth two times a day. Azelaic Acid (FINACEA) 15 % gel Apply to affected area once daily. fluorometholone (FML LIQUID FILM) 0.1 % ophthalmic suspension Use 1 Drop in both eyes once daily. FOLIC ACID ORAL Take by mouth. No current facility-administered medications on file prior to visit. Social History Social History Tobacco Use Smoking status: Never Smokeless tobacco: Never Vaping Use Vaping status: Never Used Substance Use Topics Alcohol use: No Drug use: No Review of Symptoms REVIEW OF SYSTEMS Previous records, office notes EXAM: BP 130/64 (BP Site: Left Arm, BP Position: Sitting, BP Cuff Size: Regular Adult) Pul (more content not included)... [facility] 03-25-2024 History of Present illness Narrative Chief Complaint Patient presents with: ER F/U: Left side abd pain, muscle strain HPI Anaya Morrow Jaylyn is a 84 year old female who presents here today for Above Complaints.. Was seen in the ER at [facility] on 03/23 (2 days ago) for left side pain-was dx with muscle strain and given a dx of muscle strain-Flexeril has been helpful. Had been shoveling snow a couple days prior. Did take Flexeril last evening as well as Tylenol, this has been helpful. Interested in doing PT. Past medical history, appointments, medications, allergies reviewed. 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 Dementia (HCC) Diverticulosis of colon (without mention of hemorrhage) Dry cough 05/23/2016 Ganglion of joint 07/16/2005 Generalized osteoarthrosis, unspecified site Hemorrhage of gastrointestinal tract, unspecified Hemorrhage of rectum and anus Hypertension Infection of left eye Irritable bowel syndrome Osteomalacia, unspecified Other and unspecified hyperlipidemia Pneumonia, organism unspecified(486) PONV (postoperative nausea and vomiting) Psoriatic arthritis (HCC) Rectocele 01/05/2011 Skin tear of lower leg without complication 05/23/2016 Sprain of unspecified site of sacroiliac region Unspecified constipation Urge incontinence mild Previous Surgical History PAST SURGICAL HISTORY Procedure Laterality Date ARTHRP KNE CONDYLE&PLATU MEDIAL&LAT COMPARTMENTS Right 06/03/2017 Knee replacement, total COLONOSCOPY 05/10/2022 rectal mass COLONOSCOPY FLX DX W/COLLJ SPEC WHEN PFRMD 04/20/2002 Colonoscopy COLONOSCOPY FLX DX W/COLLJ SPEC WHEN PFRMD 07/25/2011 Colonoscopy EYE SURGERY HX JOINT REPLACEMENT HX NEUROPLASTY &/TRANSPOS MEDIAN NRV CARPAL TUNNE 1979 Carpal tunnel decomp b/l hands NEUROPLASTY &/TRANSPOS MEDIAN NRV CARPAL TUNNE 12/18/2011 RIGHT PAST SURGICAL HISTORY OF Left laser eye surgery for glaucoma SIGMOIDOSCOPY FLX DX W/COLLJ SPEC BR/WA IF PFRMD 06/23/2007 TOTAL ABDOMINAL HYSTERECT W/WO RMVL TUBE OVARY 1988 RUBI/BSO for fibroids and bleeding TOTAL KNEE REPLACEMENT Left 03/28/2020 VAGINAL HYSTERECTOMY Family History FAMILY HISTORY Problem Relation Age of Onset Heart Mother CHF Cancer Father prostate Psychiatry Father Cancer Brother No Known Problems Daughter No Known Problems Daughter No Known Problems Daughter Breast Cancer Maternal Aunt Colon Cancer No Family History Patient Allergies ALLERGIES Allergen Reactions Caffeine Codeine Darvocet A500 [Prop* Vomiting Demerol [Meperidine* Vomiting Entex [Phenylephrin* Ephedrine Other: See Comments Heart palpitations Griseofulvin Milk Containing Pro* Intolerance Nasal stuffiness Tramadol Other: See Comments Nausea, vomiting, dry heaves after carpal tunnel surgery Vicodin [Hydrocodon* Itching Zoloft [Sertraline * Mental Status Change Increased anxiety and feeling of depression. Started in 2005, not noted then Current Medications Current Outpatient Medications on File Prior to Visit Medication Sig cyclobenzaprine (FLEXERIL) 5 mg tablet Take 1 tablet by mouth two times a day as needed for up to 5 days. ketoconazole (NIZORAL) 2 % cream Apply to affected area two times a day. amitriptyline (ELAVIL) 10 mg tablet Take 1 tablet by mouth daily at bedtime. loratadine (CLARITIN) 10 mg tablet Take 1 tablet by mouth once daily. methotrexate 2.5 mg tablet TAKE 5 TABLET(S) ORAL ONCE A WEEK START 4 TABS ONCE A WEEK FOR 2 WEEKS hydrocortisone (ANUSOL-HC) 25 mg suppository 1 Suppository by RECTAL route two times a day as needed (hemorrhoids/rectal pain). losartan (COZAAR) 25 mg tablet Take 1 tablet by mouth once daily. FLUoxetine (PROZAC) 10 mg capsule Take 1 capsule by mouth once daily. donepezil (ARICEPT) 10 mg tablet Take 1 tablet by mouth daily at bedtime. famotidine (PEPCID) 10 mg tablet Take 1 tablet by mouth two times a day. Azelaic Acid (FINACEA) 15 % gel Apply to affected area once daily. fluorometholone (FML LIQUID FILM) 0.1 % ophthalmic suspension Use 1 Drop in both eyes once daily. FOLIC ACID ORAL Take by mouth. No current facility-administered medications on file prior to visit. Social History Social History Tobacco Use Smoking status: Never Smokeless tobacco: Never Vaping Use Vaping status: Never Used Substance Use Topics Alcohol use: No Drug use: No Review of Symptoms REVIEW OF SYSTEMS Previous records, office notes EXAM: BP 130/64 (BP Site: Left Arm, BP Position: Sitting, BP Cuff Size: Regular Adult) Pulse (!) 53 Resp 16 Wt 55.9 kg (123 lb 3.8 oz) SpO2 99% BMI 25.76 kg/m General Appearance: Well appearing, alert, in no acute distress, well-hydrated, well nourished.. Back:no pain to palpation of vertebrae, good flexion and extension, good range of motion, + left lower back muscle tenderness, motor and sensory appear to be normal Lungs: Lungs clear to auscultation. No wheezing, rhonchi, rales.. Heart: RRR without murmur, gallop, or rubs. No ectopy. Psychiatric: pleasant, cooperative. Health Maintenance List Pneumococcal Vaccine: 50+(1 of 2 - PCV) Never done Shingrix Vaccine(1 of 2) due on 11/03/2012 RSV Vaccine(1 - 1-dose 75+ series) Never done Influenza Vaccine(1) due on 08/31/2024 Covid-19 Vaccine(1) due on 01/21/2025 Diabetes Screening due on 03/23/2027 DTaP,Tdap,Td Vaccine(4 - Td or Tdap) due on 11/23/2032 Bone Density Screening Completed Spirometry Completed Cervical Cancer Screening Discontinued Colorectal Cancer Screening Discontinued Advance Directive Discussion Discontinued Data reviewed Previous records, office notes ASSESSMENT/PLAN: 1. Acute left-sided low back pain without sciatica - ICD9: 724.2, ICD10: M54.50 (primary diagnosis) Continue supportive care - CONSULT TO PHYSICAL THERAPY - CYCLOBENZAPRINE 5 MG TABLET 2. JOSHUA (generalized anxiety disorder) - ICD9: 300.02, ICD10: F41.1 rosa Monterroso APRN.SHIP KEEPER documented in this encounter [facility] 03-23-2024 Telephone encounter Note TC to patient and spouse who are both notified of providers message below. Patient verbalized understanding and will continue to push fluids and monitor output. JEFF Morrison [facility] 03-23-2024 Miscellaneous Notes TC to patient and spouse who are both notified of providers message below. Patient verbalized understanding and will continue to push fluids and monitor output. JEFF Morrison Urinary retention is not a common side effect of toradol. I recommend continuing to push fluids and monitor output, even if any incontinence. If no urine output in a total of 24 hours, then needs to return to ER. Thank you, Kandi Park APRN.SHIP KEEPER Patient returning call and states she last urinated this morning approximately 6-7am. Reports she usually urinates more often than this. Spouse reports they gave patient Toradol for pain at the ED this monring and he wonders if this is contributing. Cherrie Harkins RN Exactly how long has it been since last urination? Lab work, including kidney function, looks great from what was drawn today at ER. No signs of infection or any abnormalities in the UA either. CT of entire abd/pelvis was also benign. From my standpoint, I do not see any alarm for concern besides possible urination retention. Thank you, Kandi Park APRN.SHIP KEEPER Pt called to reports she went to [place] ER today 03-23-24 due to left lower side pain. Pt home now and not urinating list she normally does. Pt getting fluids in but not putting out urine.. Pt concerned. Pt also has been scheduled for ER FU on 03/25/24. Please review and advise pt regarding urination. Hilaria Cifuentes LPN documented in this encounter [facility] 03-23-2024 Telephone encounter Note Urinary retention is not a common side effect of toradol. I recommend continuing to push fluids and monitor output, even if any incontinence. If no urine output in a total of 24 hours, then needs to return to ER. Thank you, Kandi Park APRN.SHIP KEEPER [facility] 03-23-2024 Telephone encounter Note Patient returning call and states she last urinated this morning approximately 6-7am. Reports she usually urinates more often than this. Spouse reports they gave patient Toradol for pain at the ED this monring and he wonders if this is contributing. Cherrie Harkins, RN [facility] 03-23-2024 Telephone encounter Note Exactly how long has it been since last urination? Lab work, including kidney function, looks great from what was drawn today at ER. No signs of infection or any abnormalities in the UA either. CT of entire abd/pelvis was also benign. From my standpoint, I do not see any alarm for concern besides possible urination retention. Thank you, Kandi Park APRN.SHIP KEEPER [facility] 03-23-2024 Telephone encounter Note Pt called to reports she went to [place] ER today 03-23-24 due to left lower side pain. Pt home now and not urinating list she normally does. Pt getting fluids in but not putting out urine.. Pt concerned. Pt also has been scheduled for ER FU on 03/25/24. Please review and advise pt regarding urination. Hilaria Cifuentes LPN [facility] 01-25-2024 Note HNO ID: [id number] Author: AMERICA MENDEZ APRN.SHIP KEEPER Service: ? Author Type: Nurse Practitioner Type: Progress Notes Filed: 01/25/2024 11:51 Note Text: This note was created using [employer]. Subjective Anaya Wilson is a 83 year old female. HPI Patient complains of a sore in her mouth for the last day. She otherwise denies any nausea vomiting or fever. She is worried there might be an infection and wondering whether she might need antibiotics. Review of Systems As above Objective BP 146/82 Pulse 63 Temp 36.4 ?C (97.5 ?F) (Tympanic) Resp 18 Wt 55 kg (121 lb 4.1 oz) SpO2 97% BMI 25.34 kg/m? Physical Exam Vitals and nursing note reviewed. Constitutional: General: She is not in acute distress. Appearance: Normal appearance. She is not ill-appearing. HENT: Head: Normocephalic. Mouth/Throat: Mouth: Mucous membranes are moist. Comments: In the region of tooth 27 there is a small sore on the oral tissue with no surrounding erythema or drainage noted. Eyes: Conjunctiva/sclera: Conjunctivae normal. Pulmonary: Effort: Pulmonary effort is normal. Musculoskeletal: General: Normal range of motion. Cervical back: Normal range of motion. Skin: General: Skin is warm and dry. Neurological: General: No focal deficit present. Mental Status: She is alert. Psychiatric: Mood and Affect: Mood normal. Behavior: Behavior normal. Assessment and Plan ASSESSMENT/PLAN: 1. Mouth sore - ICD9: 528.9, ICD10: K13.79 Discussed with the patient that I do not see any obvious signs of infection and I did not feel that antibiotics are necessary at this time. Discussed with patient that she could use [id number] numbing medication as needed for discomfort. I recommended that she does follow-up closely with either her PCP or dentist and return if symptoms seem to be worsening. America Mendez APRN.[facility] 01-25-2024 History of Present illness Narrative This note was created using [employer]. Subjective Anaya Wilson is a 83 year old female. HPI Patient complains of a sore in her mouth for the last day. She otherwise denies any nausea vomiting or fever. She is worried there might be an infection and wondering whether she might need antibiotics. Review of Systems As above Objective BP 146/82 Pulse 63 Temp 36.4 C (97.5 F) (Tympanic) Resp 18 Wt 55 kg (121 lb 4.1 oz) SpO2 97% BMI 25.34 kg/m Physical Exam Vitals and nursing note reviewed. Constitutional: General: She is not in acute distress. Appearance: Normal appearance. She is not ill-appearing. HENT: Head: Normocephalic. Mouth/Throat: Mouth: Mucous membranes are moist. Comments: In the region of tooth 27 there is a small sore on the oral tissue with no surrounding erythema or drainage noted. Eyes: Conjunctiva/sclera: Conjunctivae normal. Pulmonary: Effort: Pulmonary effort is normal. Musculoskeletal: General: Normal range of motion. Cervical back: Normal range of motion. Skin: General: Skin is warm and dry. Neurological: General: No focal deficit present. Mental Status: She is alert. Psychiatric: Mood and Affect: Mood normal. Behavior: Behavior normal. Assessment and Plan ASSESSMENT/PLAN: 1. Mouth sore - ICD9: 528.9, ICD10: K13.79 Discussed with the patient that I do not see any obvious signs of infection and I did not feel that antibiotics are necessary at this time. Discussed with patient that she could use [id number] numbing medication as needed for discomfort. I recommended that she does follow-up closely with either her PCP or dentist and return if symptoms seem to be worsening. America Mendez APRN.KEVIN documented in this encounter [facility] 01-24-2024 Telephone encounter Note Noted [facility] 01-24-2024 Miscellaneous Notes Noted Patient calling to let PCP know that she saw Dr. Gandhi @ [facility] today for psoriasis. Dr. Gandhi prescribed Otezla 10 mg x 4 days, 20 mg x 4 days then 30 mg daily. She discontinued Methotrexate. Elizabeth Perez RN documented in this encounter [facility] 01-23-2024 Telephone encounter Note Patient calling to let PCP know that she saw Dr. Gandhi @ [facility] today for psoriasis. Dr. Gandhi prescribed Otezla 10 mg x 4 days, 20 mg x 4 days then 30 mg daily. She discontinued Methotrexate. Elizabeth Perez RN [facility] 01-22-2024 Note HNO ID: [id number] Author: EDENILSON NICHOLSON, DO Service: ? Author Type: Physician Type: Progress Notes Filed: 01/22/2024 11:47 Note Text: CC: Anaya Wilson is a 83 year old female who presents to the office for follow up HPI: Seen in office 2 weeks ago by Dunia Monterroso CNP as below Right heel-saw Lakshmi Snowden last week, going back in a month. Was told she had psoriatic arthritis flare because she had stopped her methotrexate per physician order to see if her chronic abdominal pain sx would resolve. The abdominal sx did not resolve and she has since restarted the medication. Has been applying the tapinarof cream per dermatology, is not covering it with a dressing, just leaving it open. She would like to have this looked at to see if it looks right. Currently She was diagnosed with fungal infection on her right heel. Has been using medicated cream and it is improving- ketoconazole. She admits that she does mostly keep her socks and shoes on in the home most of the day. Psoriatic arthritis, recently restarted her methotrexate due to her arthritis pain. The abdominal symptoms weren't improved when she trialed off the methotrexate. 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 Dementia (HCC) Diverticulosis of colon (without mention of hemorrhage) Dry cough 05/23/2016 Ganglion of joint 07/16/2005 Generalized osteoarthrosis, unspecified site Hemorrhage of gastrointestinal tract, unspecified Hemorrhage of rectum and anus Hypertension Infection of left eye Irritable bowel syndrome Osteomalacia, unspecified Other and unspecified hyperlipidemia Pneumonia, organism unspecified(486) PONV (postoperative nausea and vomiting) Psoriatic arthritis (HCC) Rectocele 01/05/2011 Skin tear of lower leg without complication 05/23/2016 Sprain of unspecified site of sacroiliac region Unspecified constipation Urge incontinence mild PAST SURGICAL HISTORY Procedure Laterality Date ARTHRP KNE CONDYLEANDPLATU MEDIALANDLAT COMPARTMENTS Right 06/03/2017 Knee replacement, total COLONOSCOPY 05/10/2022 rectal mass COLONOSCOPY FLX DX W/COLLJ SPEC WHEN PFRMD 04/20/2002 Colonoscopy COLONOSCOPY FLX DX W/COLLJ SPEC WHEN PFRMD 07/25/2011 Colonoscopy EYE SURGERY HX JOINT REPLACEMENT HX NEUROPLASTY AND/TRANSPOS MEDIAN NRV CARPAL TUNNE 1979 Carpal tunnel decomp b/l hands NEUROPLASTY AND/TRANSPOS MEDIAN NRV CARPAL TUNNE 12/18/2011 RIGHT PAST SURGICAL HISTORY OF Left laser eye surgery for glaucoma SIGMOIDOSCOPY FLX DX W/COLLJ SPEC BR/WA IF PFRMD 06/23/2007 TOTAL ABDOMINAL HYSTERECT W/WO RMVL TUBE OVARY 1988 RUBI/BSO for fibroids and bleeding TOTAL KNEE REPLACEMENT Left 03/28/2020 VAGINAL HYSTERECTOMY Current Outpatient Medications Medication Sig ketoconazole (NIZORAL) 2 % cream Apply to affected area two times a day. amitriptyline (ELAVIL) 10 mg tablet Take 1 tablet by mouth daily at bedtime. loratadine (CLARITIN) 10 mg tablet Take 1 tablet by mouth once daily. methotrexate 2.5 mg tablet TAKE 5 TABLET(S) ORAL ONCE A WEEK START 4 TABS ONCE A WEEK FOR 2 WEEKS fluocinolone-skin [id number] 0.01 % kit Apply to affected area two times a day. clobetasol (TEMOVATE) 0.05 % ointment Apply to affected area two times a day. To posterior ankle hydrocortisone (ANUSOL-HC) 25 mg suppository 1 Suppository by RECTAL route two times a day as needed (hemorrhoids/rectal pain). losartan (COZAAR) 25 mg tablet Take 1 tablet by mouth once daily. FLUoxetine (PROZAC) 10 mg capsule Take 1 capsule by mouth once daily. donepezil (ARICEPT) 10 mg tablet Take 1 tablet by mouth daily at bedtime. famotidine (PEPCID) 10 mg tablet Take 1 tablet by mouth two times a day. Azelaic Acid (FINACEA) 15 % gel Apply to affected area once daily. fluorometholone (FML LIQUID FILM) 0.1 % ophthalmic suspension Use 1 Drop in both eyes once daily. FOLIC ACID ORAL Take by mouth. No current facility-administered medications for this visit. ALLERGIES Allergen Reactions Caffeine Codeine Darvocet A500 [Prop* Vomiting Demerol [Meperidine* Vomiting Entex [Phenylephrin* Ephedrine Other: See Comments Heart palpitations Griseofulvin Milk Containing Pro* Intolerance Nasal stuffiness Tramadol Other: See Comments Nausea, vomiting, dry heaves after carpal tunnel surgery Vicodin [Hydrocodon* Itching Zoloft [Sertraline * Mental Status Change Increased anxiety and feeling of depression. Started in 2005, not noted then Social History Tobacco Use Smoking status: Never Sm (more content not included)... [facility] 01-22-2024 History of Present illness Narrative CC: Anaya Wilson is a 83 year old female who presents to the office for follow up HPI: Seen in office 2 weeks ago by Dunia Monterroso CNP as below Right heel-saw [facility] Snowden last week, going back in a month. Was told she had psoriatic arthritis flare because she had stopped her methotrexate per physician order to see if her chronic abdominal pain sx would resolve. The abdominal sx did not resolve and she has since restarted the medication. Has been applying the tapinarof cream per dermatology, is not covering it with a dressing, just leaving it open. She would like to have this looked at to see if it looks right. Currently She was diagnosed with fungal infection on her right heel. Has been using medicated cream and it is improving- ketoconazole. She admits that she does mostly keep her socks and shoes on in the home most of the day. Psoriatic arthritis, recently restarted her methotrexate due to her arthritis pain. The abdominal symptoms weren't improved when she trialed off the methotrexate. 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 Dementia (HCC) Diverticulosis of colon (without mention of hemorrhage) Dry cough 05/23/2016 Ganglion of joint 07/16/2005 Generalized osteoarthrosis, unspecified site Hemorrhage of gastrointestinal tract, unspecified Hemorrhage of rectum and anus Hypertension Infection of left eye Irritable bowel syndrome Osteomalacia, unspecified Other and unspecified hyperlipidemia Pneumonia, organism unspecified(486) PONV (postoperative nausea and vomiting) Psoriatic arthritis (HCC) Rectocele 01/05/2011 Skin tear of lower leg without complication 05/23/2016 Sprain of unspecified site of sacroiliac region Unspecified constipation Urge incontinence mild PAST SURGICAL HISTORY Procedure Laterality Date ARTHRP KNE CONDYLE&PLATU MEDIAL&LAT COMPARTMENTS Right 06/03/2017 Knee replacement, total COLONOSCOPY 05/10/2022 rectal mass COLONOSCOPY FLX DX W/COLLJ SPEC WHEN PFRMD 04/20/2002 Colonoscopy COLONOSCOPY FLX DX W/COLLJ SPEC WHEN PFRMD 07/25/2011 Colonoscopy EYE SURGERY HX JOINT REPLACEMENT HX NEUROPLASTY &/TRANSPOS MEDIAN NRV CARPAL TUNNE 1979 Carpal tunnel decomp b/l hands NEUROPLASTY &/TRANSPOS MEDIAN NRV CARPAL TUNNE 12/18/2011 RIGHT PAST SURGICAL HISTORY OF Left laser eye surgery for glaucoma SIGMOIDOSCOPY FLX DX W/COLLJ SPEC BR/WA IF PFRMD 06/23/2007 TOTAL ABDOMINAL HYSTERECT W/WO RMVL TUBE OVARY 1988 RUBI/BSO for fibroids and bleeding TOTAL KNEE REPLACEMENT Left 03/28/2020 VAGINAL HYSTERECTOMY Current Outpatient Medications Medication Sig ketoconazole (NIZORAL) 2 % cream Apply to affected area two times a day. amitriptyline (ELAVIL) 10 mg tablet Take 1 tablet by mouth daily at bedtime. loratadine (CLARITIN) 10 mg tablet Take 1 tablet by mouth once daily. methotrexate 2.5 mg tablet TAKE 5 TABLET(S) ORAL ONCE A WEEK START 4 TABS ONCE A WEEK FOR 2 WEEKS fluocinolone-skin [id number] 0.01 % kit Apply to affected area two times a day. clobetasol (TEMOVATE) 0.05 % ointment Apply to affected area two times a day. To posterior ankle hydrocortisone (ANUSOL-HC) 25 mg suppository 1 Suppository by RECTAL route two times a day as needed (hemorrhoids/rectal pain). losartan (COZAAR) 25 mg tablet Take 1 tablet by mouth once daily. FLUoxetine (PROZAC) 10 mg capsule Take 1 capsule by mouth once daily. donepezil (ARICEPT) 10 mg tablet Take 1 tablet by mouth daily at bedtime. famotidine (PEPCID) 10 mg tablet Take 1 tablet by mouth two times a day. Azelaic Acid (FINACEA) 15 % gel Apply to affected area once daily. fluorometholone (FML LIQUID FILM) 0.1 % ophthalmic suspension Use 1 Drop in both eyes once daily. FOLIC ACID ORAL Take by mouth. No current facility-administered medications for this visit. ALLERGIES Allergen Reactions Caffeine Codeine Darvocet A500 [Prop* Vomiting Demerol [Meperidine* Vomiting Entex [Phenylephrin* Ephedrine Other: See Comments Heart palpitations Griseofulvin Milk Containing Pro* Intolerance Nasal stuffiness Tramadol Other: See Comments Nausea, vomiting, dry heaves after carpal tunnel surgery Vicodin [Hydrocodon* Itching Zoloft [Sertraline * Mental Status Change Increased anxiety and feeling of depression. Started in 2005, not noted then Social History Tobacco Use Smoking status: Never Smokeless tobacco: Never Vaping Use Vaping status: Never Used Substance Use Topics Alcohol use: No Drug use: No ROS: See HPI PE: BP 128/72 Pulse 60 Temp (Src) 96.2 (Temporal) Resp 16 Wt 119 lb 14.9 oz (54.4kg) Gen: A&OX3, NAD, non-toxic appearing HEENT: PERRLA, EOMs intact b/l, nares without drainage, pharynx without erythema, exudate, lesions, or drainage. Uvula midline. Neck: No LAD, no thyromegaly, no meningismus. CV: RRR, no murmur Lungs: CTA b/l, no wheezing Skin: healing right posterior heal without open sore/wounds and only mild redness and scabbed area inferior No edema legs Normal pulses Left thumb nail with signs of fungal infection at base of nail ASSESSMENT/PLAN: 1. Fungal nail infection - ICD9: 110.1, ICD10: B35.1 (primary diagnosis) Treat with rx as below topical before trial of oral antifungal - KETOCONAZOLE 2 % TOPICAL CREAM 2. Psoriatic arthritis (HCC) - ICD9: 696.0, ICD10: L40.50 Follow up with [employer] Specialist She just recently was restarted on methotrexate 3. Hypertension, essential - ICD9: 401.9, ICD10: I10 - Controlled - Continue current medications - Recommend home blood pressure monitoring, to bring results to next visit - Encouraged sodium restriction, DASH or Mediterranean diet - Recommend regular aerobic exercise 4. JOSHUA (generalized anxiety disorder) - ICD9: 300.02, ICD10: F41.1 stable 5. Dementia without behavioral disturbance (HCC) - ICD9: 294.20, ICD10: F03.90 Slowly progressing, tolerating aricept without SE 6. Abdominal discomfort - ICD9: 789.00, ICD10: R10.9 - symptoms are improving, continue low acid, low fodmap and low sugar diet. Edenilson Nicholson DO Return if no improvement. Follow up with Edenilson Nicholson DO. To ER if develops chest pain, shortness of breath. Discussed risks, benefits, alternatives, and potential side effects of medications. Patient/Guardian expressed understanding and agreed with the plan. See patient instructions. Edenilson Nicholson DO [address] [place] [address] documented in this encounter [facility] 01-22-2024 Instructions Edenilson Nicholson DO - 01/22/2024 11:06 AM EST Ketoconazole cream on nail with a bandaid daily If nail doesn't improve, then need to consider doing a Lamisil pill daily documented in this encounter [facility] 01-15-2024 Telephone encounter Note Patient informed and verbalized understanding. Hanna Couch MA [facility] 01-15-2024 Miscellaneous Notes Patient informed and verbalized understanding. Hanna Couch MA Not recommend at the time of her visit with Angeline. Advise following up with [facility] as she has been following with them for this skin lesion/wound. If develops worsening/spreading redness, warmth, pain, red streaking, fever, needs to be seen in the office to reevaluate. Claire Biggs PA-C 01/14/2024 PATIENT is wanting to know if she needs and antibiotic for her right foot- redness. Patient was also seen by Rhina Snowden as well and they did not give an antibiotic either. Patient is wondering if she needs one? Please review and advise and call patient back Elisabeth Rico LPN documented in this encounter [facility] 01-14-2024 Telephone encounter Note Not recommend at the time of her visit with Angeline. Advise following up with [facility] as she has been following with them for this skin lesion/wound. If develops worsening/spreading redness, warmth, pain, red streaking, fever, needs to be seen in the office to reevaluate. Claire Biggs PA-C 01/14/2024 [facility] Work Phone: 01-10-2024 Telephone encounter Note Reason for Call: Psoriatic arthritis: red, swollen, open spot - Wants to know if she should start an antibiotic. Outcome: Advised to See HCP in 24 Hours. Patient verbalized understanding and is agreeable to the plan. Reviewed Express Care/Urgent Care Options. Patient will head to the nearest Express Care tomorrow. Reason for Disposition [1] Small red streak or spreading redness (< 2 inches or 5 cm) AND [2] no fever Answer Assessment - Initial Assessment Questions 1. APPEARANCE of SORES: - Red and white around the open area - denies pus. - Redness arches up around the sore and there are 5 arches - Patient had a difficult time describing how the area looked. 2. NUMBER: One sore on the inside of the right ankle 3. SIZE: Slightly smaller than the head of a thumbtack 4. LOCATION: Right 5. ONSET: - Started a few weeks ago 6. TENDER: Pain? Yes - 6 or 09/10 I can't wear my shoe very well Location of pain? Right ankle Description of pain? Burning Duration of pain? Worsens with movement Pain relief methods/effectiveness? Salve for the affected area - does not help pain - Hurts to move foot up and down 7. CAUSE: Psoriatic Arthritis 8. OTHER SYMPTOMS: - Redness is on inner part of the right ankle and goes around to the other side - Swelling is better today - Swelling yesterday was around toes and up to ankle. Now toes are not swollen. Protocols used: [id number] [facility] 01-10-2024 Miscellaneous Notes Reason for Call: Psoriatic arthritis: red, swollen, open spot - Wants to know if she should start an antibiotic. Outcome: Advised to See HCP in 24 Hours. Patient verbalized understanding and is agreeable to the plan. Reviewed Express Care/Urgent Care Options. Patient will head to the nearest Express Care tomorrow. Reason for Disposition [1] Small red streak or spreading redness (< 2 inches or 5 cm) AND [2] no fever Answer Assessment - Initial Assessment Questions 1. APPEARANCE of SORES: - Red and white around the open area - denies pus. - Redness arches up around the sore and there are 5 arches - Patient had a difficult time describing how the area looked. 2. NUMBER: One sore on the inside of the right ankle 3. SIZE: Slightly smaller than the head of a thumbtack 4. LOCATION: Right 5. ONSET: - Started a few weeks ago 6. TENDER: Pain? Yes - 6 or 7/10 I can't wear my shoe very well Location of pain? Right ankle Description of pain? Burning Duration of pain? Worsens with movement Pain relief methods/effectiveness? Salve for the affected area - does not help pain - Hurts to move foot up and down 7. CAUSE: Psoriatic Arthritis 8. OTHER SYMPTOMS: - Redness is on inner part of the right ankle and goes around to the other side - Swelling is better today - Swelling yesterday was around toes and up to ankle. Now toes are not swollen. Protocols used: [id number] documented in this encounter [facility] 01-10-2024 Telephone encounter Note PATIENT is wanting to know if she needs and antibiotic for her right foot- redness. Patient was also seen by [facility] Snowden as well and they did not give an antibiotic either. Patient is wondering if she needs one? Please review and advise and call patient back Elisabeth Rico LPN [facility] 01-10-2024 Telephone encounter Note Patient's calls and is requesting refills. also asking if he can tile picker a copy of after visit summary in medical records? Asking for a call back. The patient has been identified by name and date of : Yes Caregiver verified no other encounters exist for this prescription request: Yes Caregiver confirmed with patient/requestor that no other refills are due, in the near future, with this provider at this time: Yes The last office visit in the department: 01/09/2024 Does the patient have a future office visit with this provider/department: Yes 01/22/2024 Requested Prescriptions Pending Prescriptions Disp Refills amitriptyline (ELAVIL) 10 mg tablet 90 tablet 2 Sig: Take 1 tablet by mouth daily at bedtime. loratadine (CLARITIN) 10 mg tablet 30 tablet 11 Sig: Take 1 tablet by mouth once daily. Yi Jones RN January 10, 2024 9:22 AM [facility] 01-10-2024 Miscellaneous Notes Patient's calls and is requesting refills. also asking if he can tile picker a copy of after visit summary in medical records? Asking for a call back. The patient has been identified by name and date of : Yes Caregiver verified no other encounters exist for this prescription request: Yes Caregiver confirmed with patient/requestor that no other refills are due, in the near future, with this provider at this time: Yes The last office visit in the department: 01/09/2024 Does the patient have a future office visit with this provider/department: Yes 01/22/2024 Requested Prescriptions Pending Prescriptions Disp Refills amitriptyline (ELAVIL) 10 mg tablet 90 tablet 2 Sig: Take 1 tablet by mouth daily at bedtime. loratadine (CLARITIN) 10 mg tablet 30 tablet 11 Sig: Take 1 tablet by mouth once daily. Yi Jones RN January 10, 2024 9:22 AM documented in this encounter [facility] 01-09-2024 Note HNO ID: [id number] Author: ANGELINE MONTERROSO APRN.SHIP KEEPER Service: ? Author Type: Nurse Practitioner Type: Progress Notes Filed: 01/13/2024 12:59 Note Text: Chief Complaint Patient presents with: Urinary Frequency Rash: R heel, warm to touch, red and swollen, saw [facility] and was prescribed Tapinarof cream, Derm took Cx- neg HPI Anaya Wilson is a 83 year old female who presents here today for Above Complaints.. Urinary frequency-was seen in [facility] on 01/02, did not get results of urinary culture back yet. States her urinary frequency isn't any worse than it typically is, especially when she drinks a lot of water. Denies other urinary sx. Right heel-saw [facility] last week, going back in a month. Was told she had psoriatic arthritis flare because she had stopped her methotrexate per physician order to see if her chronic abdominal pain sx would resolve. The abdominal sx did not resolve and she has since restarted the medication. Has been applying the tapinarof cream per dermatology, is not covering it with a dressing, just leaving it open. She would like to have this looked at to see if it looks right. Past medical history, appointments, medications, allergies reviewed. 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 Dementia (HCC) Diverticulosis of colon (without mention of hemorrhage) Dry cough 05/23/2016 Ganglion of joint 07/16/2005 Generalized osteoarthrosis, unspecified site Hemorrhage of gastrointestinal tract, unspecified Hemorrhage of rectum and anus Hypertension Infection of left eye Irritable bowel syndrome Osteomalacia, unspecified Other and unspecified hyperlipidemia Pneumonia, organism unspecified(486) PONV (postoperative nausea and vomiting) Psoriatic arthritis (HCC) Rectocele 01/05/2011 Skin tear of lower leg without complication 05/23/2016 Sprain of unspecified site of sacroiliac region Unspecified constipation Urge incontinence mild Previous Surgical History PAST SURGICAL HISTORY Procedure Laterality Date ARTHRP KNE CONDYLEANDPLATU MEDIALANDLAT COMPARTMENTS Right 06/03/2017 Knee replacement, total COLONOSCOPY 05/10/2022 rectal mass COLONOSCOPY FLX DX W/COLLJ SPEC WHEN PFRMD 04/20/2002 Colonoscopy COLONOSCOPY FLX DX W/COLLJ SPEC WHEN PFRMD 07/25/2011 Colonoscopy EYE SURGERY HX JOINT REPLACEMENT HX NEUROPLASTY AND/TRANSPOS MEDIAN NRV CARPAL TUNNE 1979 Carpal tunnel decomp b/l hands NEUROPLASTY AND/TRANSPOS MEDIAN NRV CARPAL TUNNE 12/18/2011 RIGHT PAST SURGICAL HISTORY OF Left laser eye surgery for glaucoma SIGMOIDOSCOPY FLX DX W/COLLJ SPEC BR/WA IF PFRMD 06/23/2007 TOTAL ABDOMINAL HYSTERECT W/WO RMVL TUBE OVARY 1988 RUBI/BSO for fibroids and bleeding TOTAL KNEE REPLACEMENT Left 03/28/2020 VAGINAL HYSTERECTOMY Family History FAMILY HISTORY Problem Relation Age of Onset Heart Mother CHF Cancer Father prostate Psychiatry Father Cancer Brother No Known Problems Daughter No Known Problems Daughter No Known Problems Daughter Breast Cancer Maternal Aunt Colon Cancer No Family History Patient Allergies ALLERGIES Allergen Reactions Caffeine Codeine Darvocet A500 [Prop* Vomiting Demerol [Meperidine* Vomiting Entex [Phenylephrin* Ephedrine Other: See Comments Heart palpitations Griseofulvin Milk Containing Pro* Intolerance Nasal stuffiness Tramadol Other: See Comments Nausea, vomiting, dry heaves after carpal tunnel surgery Vicodin [Hydrocodon* Itching Zoloft [Sertraline * Mental Status Change Increased anxiety and feeling of depression. Started in 2005, not noted then Current Medications Current Outpatient Medications on File Prior to Visit Medication Sig methotrexate 2.5 mg tablet TAKE 5 TABLET(S) ORAL ONCE A WEEK START 4 TABS ONCE A WEEK FOR 2 WEEKS fluocinolone-skin -aody 0.01 % kit Apply to affected area two times a day. clobetasol (TEMOVATE) 0.05 % ointment Apply to affected area two times a day. To posterior ankle hydrocortisone (ANUSOL-HC) 25 mg suppository 1 Suppository by RECTAL route two times a day as needed (hemorrhoids/rectal pain). losartan (COZAAR) 25 mg tablet Take 1 tablet by mouth once daily. FLUoxetine (PROZAC) 10 mg capsule Take 1 capsule by mouth once daily. loratadine (CLARITIN) 10 mg tablet Take 1 tablet by mouth once daily. donepezil (ARICEPT) 10 mg tablet Take 1 tablet by mouth daily at bedtime. famotidine (PEPCID) 10 mg tablet Take 1 tablet by mouth two times a day. Azelaic Acid (FINACEA) 15 % gel Apply to affected area once daily. amitriptyline (ELAVIL) 10 mg tablet Take 1 tablet by mouth daily at bedtime. fluorometholone (FML LIQUID FILM) 0.1 % ophthalmi (more content not included)... [facility] 01-09-2024 History of Present illness Narrative Chief Complaint Patient presents with: Urinary Frequency Rash: R heel, warm to touch, red and swollen, saw [facility] and was prescribed Tapinarof cream, Derm took Cx- neg HPI Anaya Morrow Jaylyn is a 83 year old female who presents here today for Above Complaints.. Urinary frequency-was seen in [facility] on 01/02, did not get results of urinary culture back yet. States her urinary frequency isn't any worse than it typically is, especially when she drinks a lot of water. Denies other urinary sx. Right heel-saw [facility] last week, going back in a month. Was told she had psoriatic arthritis flare because she had stopped her methotrexate per physician order to see if her chronic abdominal pain sx would resolve. The abdominal sx did not resolve and she has since restarted the medication. Has been applying the tapinarof cream per dermatology, is not covering it with a dressing, just leaving it open. She would like to have this looked at to see if it looks right. Past medical history, appointments, medications, allergies reviewed. 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 Dementia (HCC) Diverticulosis of colon (without mention of hemorrhage) Dry cough 05/23/2016 Ganglion of joint 07/16/2005 Generalized osteoarthrosis, unspecified site Hemorrhage of gastrointestinal tract, unspecified Hemorrhage of rectum and anus Hypertension Infection of left eye Irritable bowel syndrome Osteomalacia, unspecified Other and unspecified hyperlipidemia Pneumonia, organism unspecified(486) PONV (postoperative nausea and vomiting) Psoriatic arthritis (HCC) Rectocele 01/05/2011 Skin tear of lower leg without complication 05/23/2016 Sprain of unspecified site of sacroiliac region Unspecified constipation Urge incontinence mild Previous Surgical History PAST SURGICAL HISTORY Procedure Laterality Date ARTHRP KNE CONDYLE&PLATU MEDIAL&LAT COMPARTMENTS Right 06/03/2017 Knee replacement, total COLONOSCOPY 05/10/2022 rectal mass COLONOSCOPY FLX DX W/COLLJ SPEC WHEN PFRMD 04/20/2002 Colonoscopy COLONOSCOPY FLX DX W/COLLJ SPEC WHEN PFRMD 07/25/2011 Colonoscopy EYE SURGERY HX JOINT REPLACEMENT HX NEUROPLASTY &/TRANSPOS MEDIAN NRV CARPAL TUNNE 1979 Carpal tunnel decomp b/l hands NEUROPLASTY &/TRANSPOS MEDIAN NRV CARPAL TUNNE 12/18/2011 RIGHT PAST SURGICAL HISTORY OF Left laser eye surgery for glaucoma SIGMOIDOSCOPY FLX DX W/COLLJ SPEC BR/WA IF PFRMD 06/23/2007 TOTAL ABDOMINAL HYSTERECT W/WO RMVL TUBE OVARY 1988 RUBI/BSO for fibroids and bleeding TOTAL KNEE REPLACEMENT Left 03/28/2020 VAGINAL HYSTERECTOMY Family History FAMILY HISTORY Problem Relation Age of Onset Heart Mother CHF Cancer Father prostate Psychiatry Father Cancer Brother No Known Problems Daughter No Known Problems Daughter No Known Problems Daughter Breast Cancer Maternal Aunt Colon Cancer No Family History Patient Allergies ALLERGIES Allergen Reactions Caffeine Codeine Darvocet A500 [Prop* Vomiting Demerol [Meperidine* Vomiting Entex [Phenylephrin* Ephedrine Other: See Comments Heart palpitations Griseofulvin Milk Containing Pro* Intolerance Nasal stuffiness Tramadol Other: See Comments Nausea, vomiting, dry heaves after carpal tunnel surgery Vicodin [Hydrocodon* Itching Zoloft [Sertraline * Mental Status Change Increased anxiety and feeling of depression. Started in 2005, not noted then Current Medications Current Outpatient Medications on File Prior to Visit Medication Sig methotrexate 2.5 mg tablet TAKE 5 TABLET(S) ORAL ONCE A WEEK START 4 TABS ONCE A WEEK FOR 2 WEEKS fluocinolone-skin [id number] 0.01 % kit Apply to affected area two times a day. clobetasol (TEMOVATE) 0.05 % ointment Apply to affected area two times a day. To posterior ankle hydrocortisone (ANUSOL-HC) 25 mg suppository 1 Suppository by RECTAL route two times a day as needed (hemorrhoids/rectal pain). losartan (COZAAR) 25 mg tablet Take 1 tablet by mouth once daily. FLUoxetine (PROZAC) 10 mg capsule Take 1 capsule by mouth once daily. loratadine (CLARITIN) 10 mg tablet Take 1 tablet by mouth once daily. donepezil (ARICEPT) 10 mg tablet Take 1 tablet by mouth daily at bedtime. famotidine (PEPCID) 10 mg tablet Take 1 tablet by mouth two times a day. Azelaic Acid (FINACEA) 15 % gel Apply to affected area once daily. amitriptyline (ELAVIL) 10 mg tablet Take 1 tablet by mouth daily at bedtime. fluorometholone (FML LIQUID FILM) 0.1 % ophthalmic suspension Use 1 Drop in both eyes once daily. FOLIC ACID ORAL Take by mouth. No current facility-administered medications on file prior to visit. Social History Social History Tobacco Use Smoking status: Never Smokeless tobacco: Never Vaping Use Vaping status: Never Used Substance Use Topics Alcohol use: No Drug use: No Review of Symptoms REVIEW OF SYSTEMS See HPI, otherwise negative EXAM: BP 102/58 (BP Site: Left Arm, BP Position: Sitting, BP Cuff Size: Regular Adult) Pulse (!) 55 Temp 36.1 C (97 F) Resp 16 Wt 55.3 kg (121 lb 14.6 oz) SpO2 98% BMI 25.48 kg/m General Appearance: Well appearing, alert, in no acute distress, well-hydrated, well nourished.. Skin: right posterior heel reddened, moist, no drainage or surrounding erythema. Lungs: Lungs clear to auscultation. No wheezing, rhonchi, rales.. Heart: RRR without murmur, gallop, or rubs. No ectopy. Abdomen: Normal abdominal exam, Abdomen soft, non-tender. Bowel sounds normal. No masses, organomegaly. Psychiatric: pleasant, cooperative. Health Maintenance List Covid-19 Vaccine(1) Never done Influenza Vaccine(1) due on 11/03/2023 RSV Vaccine(1 - 1-dose 75+ series) due on 01/22/2024 Shingrix Vaccine(1 of 2) due on 01/22/2024 Pneumococcal Vaccine: 65+(1 of 2 - PCV) due on 01/22/2024 Diabetes Screening due on 09/22/2026 DTaP,Tdap,Td Vaccine(4 - Td or Tdap) due on 11/23/2032 Bone Density Screening Completed Spirometry Completed Cervical Cancer Screening Discontinued Colorectal Cancer Screening Discontinued Advance Directive Discussion Discontinued Data reviewed Previous records, office notes ASSESSMENT/PLAN: 1. Urinary frequency - ICD9: 788.41, ICD10: R35.0 (primary diagnosis) No UTI present, this is her normal urinary frequency, especially when she drinks a lot of water. Gave her recent negative urine culture results. 2. Psoriatic arthritis (HCC) - ICD9: 696.0, ICD10: L40.50 I do recommend she cover this wound with nonadherent dressing. Patient and her are already heading to [facility] today to get another sample of the prescribed cream. I recommend they see them for further evaluation as I am not familiar with this medication or tx, I have not seen this wound prior to the tx. I did send a letter to their office stating that I am happy to help with the care but am unfamiliar with this medication and tx. 3. Open wound of right heel, subsequent encounter - ICD9: V58.89, 892.0, ICD10: S91.301D I do recommend she cover this wound with nonadherent dressing. Patient and her are already heading to [facility] today to get another sample of the prescribed cream. I recommend they see them for further evaluation as I am not familiar with this medication or tx, I have not seen this wound prior to the tx. I did send a letter to their office stating that I am happy to help with the care but am unfamiliar with this medication and tx. Angeline Monterroso APRN.SHIP KEEPER Greater than 50% of 42-minute visit spent face to face with patient in counseling and education. documented in this encounter [facility] 01-03-2024 Note HNO ID: [id number] Author: KATHRYN PEARSON APRN.SHIP KEEPER Service: ? Author Type: Nurse Practitioner Type: Progress Notes Filed: 01/03/2024 12:24 Note Text: This note was created using [employer]. Subjective Anaya Wilson is a 83 year old female. 83 year old female with PMH presents for complaints of urinary and foot complaints. UTI Acute on chronic +urinary frequency Denies abdominal pain Denies N/V/D Denies skin rash or lesions. Was seen here on 12/24/23 for same Urine culture negative (she was placed on Keflex) Right heel +redness She was seen for this spot on the ankle on 12/05/23 and prescribed steroid 12/24/23 she was also seen In fact she was seen by [facility] 2 days ago Cultures obtained, which she states was negative They were given a cream, which endorses she was told could take a little time to work The history is provided by the patient and the spouse. No cook room supervisor was used. 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 Dementia (HCC) Diverticulosis of colon (without mention of hemorrhage) Dry cough 05/23/2016 Ganglion of joint 07/16/2005 Generalized osteoarthrosis, unspecified site Hemorrhage of gastrointestinal tract, unspecified Hemorrhage of rectum and anus Hypertension Infection of left eye Irritable bowel syndrome Osteomalacia, unspecified Other and unspecified hyperlipidemia Pneumonia, organism unspecified(486) PONV (postoperative nausea and vomiting) Psoriatic arthritis (HCC) Rectocele 01/05/2011 Skin tear of lower leg without complication 05/23/2016 Sprain of unspecified site of sacroiliac region Unspecified constipation Urge incontinence mild PAST SURGICAL HISTORY Procedure Laterality Date ARTHRP KNE CONDYLEANDPLATU MEDIALANDLAT COMPARTMENTS Right 06/03/2017 Knee replacement, total COLONOSCOPY 05/10/2022 rectal mass COLONOSCOPY FLX DX W/COLLJ SPEC WHEN PFRMD 04/20/2002 Colonoscopy COLONOSCOPY FLX DX W/COLLJ SPEC WHEN PFRMD 07/25/2011 Colonoscopy EYE SURGERY HX JOINT REPLACEMENT HX NEUROPLASTY AND/TRANSPOS MEDIAN NRV CARPAL TUNNE 1979 Carpal tunnel decomp b/l hands NEUROPLASTY AND/TRANSPOS MEDIAN NRV CARPAL TUNNE 12/18/2011 RIGHT PAST SURGICAL HISTORY OF Left laser eye surgery for glaucoma SIGMOIDOSCOPY FLX DX W/COLLJ SPEC BR/WA IF PFRMD 06/23/2007 TOTAL ABDOMINAL HYSTERECT W/WO RMVL TUBE OVARY 1988 RUBI/BSO for fibroids and bleeding TOTAL KNEE REPLACEMENT Left 03/28/2020 VAGINAL HYSTERECTOMY ALLERGIES Caffeine, Codeine, Darvocet A500 [Propoxyphene N-Acetaminophen], Demerol [Meperidine (Pf)], Entex [Phenylephrine-Guaifenesin], Ephedrine, Griseofulvin, Milk Containing Products (Dairy), Tramadol, Vicodin [Hydrocodone-Acetaminophen], and Zoloft [Sertraline Hcl] MEDICATIONS methotrexate 2.5 mg tablet TAKE 5 TABLET(S) ORAL ONCE A WEEK START 4 TABS ONCE A WEEK FOR 2 WEEKS fluocinolone-skin [id number] 0.01 % kit Apply to affected area two times a day. clobetasol (TEMOVATE) 0.05 % ointment Apply to affected area two times a day. To posterior ankle hydrocortisone (ANUSOL-HC) 25 mg suppository 1 Suppository by RECTAL route two times a day as needed (hemorrhoids/rectal pain). losartan (COZAAR) 25 mg tablet Take 1 tablet by mouth once daily. loratadine (CLARITIN) 10 mg tablet Take 1 tablet by mouth once daily. donepezil (ARICEPT) 10 mg tablet Take 1 tablet by mouth daily at bedtime. famotidine (PEPCID) 10 mg tablet Take 1 tablet by mouth two times a day. Azelaic Acid (FINACEA) 15 % gel Apply to affected area once daily. amitriptyline (ELAVIL) 10 mg tablet Take 1 tablet by mouth daily at bedtime. fluorometholone (FML LIQUID FILM) 0.1 % ophthalmic suspension Use 1 Drop in both eyes once daily. FOLIC ACID ORAL Take by mouth. FLUoxetine (PROZAC) 10 mg capsule Take 1 capsule by mouth once daily. FAMILY HISTORY Problem Relation Age of Onset Heart Mother CHF Cancer Father prostate Psychiatry Father Cancer Brother No Known Problems Daughter No Known Problems Daughter No Known Problems Daughter Breast Cancer Maternal Aunt Colon Cancer No Family History Social History Tobacco Use Smoking status: Never Smokeless tobacco: Never Vaping Use Vaping status: Never Used Substance Use Topics Alcohol use: No Drug use: No Review of Systems Constitutional: Negative for appetite change, chills, diaphoresis and fatigue. Respiratory: Negative for apnea, cough, choking and chest tightness. Cardiovascular: Negative for chest pain, palpitations and leg swelling. Gastrointestinal: Negative for abdominal pain, diarrhea, nausea and vomiting. Genitourinary: Positive for frequency. Musculoskeletal: Negative for arthralgias, back p (more content not included)... [facility] 01-03-2024 History of Present illness Narrative This note was created using [employer]. Subjective Anaya Wilson is a 83 year old female. 83 year old female with PMH presents for complaints of urinary and foot complaints. UTI Acute on chronic +urinary frequency Denies abdominal pain Denies N/V/D Denies skin rash or lesions. Was seen here on 12/24/23 for same Urine culture negative (she was placed on Keflex) Right heel +redness She was seen for this spot on the ankle on 12/05/23 and prescribed steroid 12/24/23 she was also seen In fact she was seen by Rhina [facility] 2 days ago Cultures obtained, which she states was negative They were given a cream, which endorses she was told could take a little time to work The history is provided by the patient and the spouse. No cook room supervisor was used. 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 Dementia (HCC) Diverticulosis of colon (without mention of hemorrhage) Dry cough 05/23/2016 Ganglion of joint 07/16/2005 Generalized osteoarthrosis, unspecified site Hemorrhage of gastrointestinal tract, unspecified Hemorrhage of rectum and anus Hypertension Infection of left eye Irritable bowel syndrome Osteomalacia, unspecified Other and unspecified hyperlipidemia Pneumonia, organism unspecified(486) PONV (postoperative nausea and vomiting) Psoriatic arthritis (HCC) Rectocele 01/05/2011 Skin tear of lower leg without complication 05/23/2016 Sprain of unspecified site of sacroiliac region Unspecified constipation Urge incontinence mild PAST SURGICAL HISTORY Procedure Laterality Date ARTHRP KNE CONDYLE&PLATU MEDIAL&LAT COMPARTMENTS Right 06/03/2017 Knee replacement, total COLONOSCOPY 05/10/2022 rectal mass COLONOSCOPY FLX DX W/COLLJ SPEC WHEN PFRMD 04/20/2002 Colonoscopy COLONOSCOPY FLX DX W/COLLJ SPEC WHEN PFRMD 07/25/2011 Colonoscopy EYE SURGERY HX JOINT REPLACEMENT HX NEUROPLASTY &/TRANSPOS MEDIAN NRV CARPAL TUNNE 1979 Carpal tunnel decomp b/l hands NEUROPLASTY &/TRANSPOS MEDIAN NRV CARPAL TUNNE 12/18/2011 RIGHT PAST SURGICAL HISTORY OF Left laser eye surgery for glaucoma SIGMOIDOSCOPY FLX DX W/COLLJ SPEC BR/WA IF PFRMD 06/23/2007 TOTAL ABDOMINAL HYSTERECT W/WO RMVL TUBE OVARY 1988 RUBI/BSO for fibroids and bleeding TOTAL KNEE REPLACEMENT Left 03/28/2020 VAGINAL HYSTERECTOMY ALLERGIES Caffeine, Codeine, Darvocet A500 [Propoxyphene N-Acetaminophen], Demerol [Meperidine (Pf)], Entex [Phenylephrine-Guaifenesin], Ephedrine, Griseofulvin, Milk Containing Products (Dairy), Tramadol, Vicodin [Hydrocodone-Acetaminophen], and Zoloft [Sertraline Hcl] MEDICATIONS methotrexate 2.5 mg tablet TAKE 5 TABLET(S) ORAL ONCE A WEEK START 4 TABS ONCE A WEEK FOR 2 WEEKS fluocinolone-skin [id number] 0.01 % kit Apply to affected area two times a day. clobetasol (TEMOVATE) 0.05 % ointment Apply to affected area two times a day. To posterior ankle hydrocortisone (ANUSOL-HC) 25 mg suppository 1 Suppository by RECTAL route two times a day as needed (hemorrhoids/rectal pain). losartan (COZAAR) 25 mg tablet Take 1 tablet by mouth once daily. loratadine (CLARITIN) 10 mg tablet Take 1 tablet by mouth once daily. donepezil (ARICEPT) 10 mg tablet Take 1 tablet by mouth daily at bedtime. famotidine (PEPCID) 10 mg tablet Take 1 tablet by mouth two times a day. Azelaic Acid (FINACEA) 15 % gel Apply to affected area once daily. amitriptyline (ELAVIL) 10 mg tablet Take 1 tablet by mouth daily at bedtime. fluorometholone (FML LIQUID FILM) 0.1 % ophthalmic suspension Use 1 Drop in both eyes once daily. FOLIC ACID ORAL Take by mouth. FLUoxetine (PROZAC) 10 mg capsule Take 1 capsule by mouth once daily. FAMILY HISTORY Problem Relation Age of Onset Heart Mother CHF Cancer Father prostate Psychiatry Father Cancer Brother No Known Problems Daughter No Known Problems Daughter No Known Problems Daughter Breast Cancer Maternal Aunt Colon Cancer No Family History Social History Tobacco Use Smoking status: Never Smokeless tobacco: Never Vaping Use Vaping status: Never Used Substance Use Topics Alcohol use: No Drug use: No Review of Systems Constitutional: Negative for appetite change, chills, diaphoresis and fatigue. Respiratory: Negative for apnea, cough, choking and chest tightness. Cardiovascular: Negative for chest pain, palpitations and leg swelling. Gastrointestinal: Negative for abdominal pain, diarrhea, nausea and vomiting. Genitourinary: Positive for frequency. Musculoskeletal: Negative for arthralgias, back pain and gait problem. Skin: Positive for color change. Negative for pallor, rash and wound. +rash heel Allergic/Immunologic: Negative for environmental allergies, food allergies and immunocompromised state. Neurological: Negative for dizziness, facial asymmetry, light-headedness and headaches. Hematological: Negative for adenopathy. Does not bruise/bleed easily. Psychiatric/Behavioral: Negative for agitation and behavioral problems. Objective BP 151/73 Pulse (!) 50 Temp 36.2 C (97.1 F) Resp 18 Wt 56.6 kg (124 lb 12.5 oz) SpO2 99% BMI 26.08 kg/m Physical Exam Vitals and nursing note reviewed. Constitutional: General: She is not in acute distress. Appearance: Normal appearance. She is normal weight. She is not ill-appearing, toxic-appearing or diaphoretic. HENT: Head: Normocephalic and atraumatic. Right Ear: Ear canal and external ear normal. Left Ear: Ear canal and external ear normal. Nose: Nose normal. No congestion or rhinorrhea. Mouth/Throat: Mouth: Mucous membranes are moist. Pharynx: No oropharyngeal exudate or posterior oropharyngeal erythema. Eyes: General: Right eye: No discharge. Left eye: No discharge. Extraocular Movements: Extraocular movements intact. Conjunctiva/sclera: Conjunctivae normal. Pupils: Pupils are equal, round, and reactive to light. Cardiovascular: Rate and Rhythm: Normal rate and regular rhythm. Pulses: Normal pulses. Heart sounds: Normal heart sounds. No murmur heard. No friction rub. Pulmonary: Effort: Pulmonary effort is normal. No respiratory distress. Breath sounds: Normal breath sounds. No stridor. No wheezing, rhonchi or rales. Chest: Chest wall: No tenderness. Abdominal: General: Abdomen is flat. There is no distension. Palpations: Abdomen is soft. There is no mass. Tenderness: There is no abdominal tenderness. There is no right CVA tenderness, left CVA tenderness, guarding or rebound. Hernia: No hernia is present. Musculoskeletal: General: No swelling, tenderness, deformity or signs of injury. Normal range of motion. Cervical back: Normal range of motion and neck supple. No rigidity. Right lower leg: No edema. Left lower leg: No edema. Lymphadenopathy: Cervical: No cervical adenopathy. Skin: General: Skin is warm. Coloration: Skin is not jaundiced or pale. Findings: Erythema present. No bruising, lesion or rash. Comments: Right posterior heel with redness, Scaling like noted. +flaking of skin Neurological: General: No focal deficit present. Mental Status: She is alert and oriented to person, place, and time. Cranial Nerves: No cranial nerve deficit. Sensory: No sensory deficit. Motor: No weakness. Coordination: Coordination normal. Gait: Gait normal. Psychiatric: Mood and Affect: Mood normal. Behavior: Behavior normal. Thought Content: Thought content normal. Judgment: Judgment normal. Assessment and Plan ASSESSMENT/PLAN: 1. Urination frequency - ICD9: 788.41, ICD10: R35.0 (primary diagnosis) recurrent - UA negative - Send urine for culture Appt made for patient 01/06/24 with Cory - UA DIP, URINE (POC) - URINE CULTURE 2. Rash - ICD9: 782.1, ICD10: R21 Ongoing Has been seen several times, Most recently by [facility] 2 days Cx obtained and negative Given cream, but unable to remember Continue cream F/U with [facility] Appt made for patient 01/06/24 with Cory Pearson APRN.SHIP KEEPER documented in this encounter [facility] 12-27-2023 Telephone encounter Note Pt has refills at pharmacy through next Oct. Pt notified of such. Refill will be declined. [facility] 12-27-2023 Miscellaneous Notes Pt has refills at pharmacy through oct. Pt notified of such. Refill will be declined. Patient has 1 left. Patient has been identified by name and date of : Yes, Patient phones for refill(s): Requested Prescriptions Pending Prescriptions Disp Refills loratadine (CLARITIN) 10 mg tablet 30 tablet 11 Sig: Take 1 tablet by mouth once daily. Date of last office visit in primary care: 12/05/2023 Date of next office visit in primary care: 01/22/2024 Please advise. Thank you. Chapis Womack. documented in this encounter [facility] 12-27-2023 Telephone encounter Note Patient has 1 left. Patient has been identified by name and date of : Yes, Patient phones for refill(s): Requested Prescriptions Pending Prescriptions Disp Refills loratadine (CLARITIN) 10 mg tablet 30 tablet 11 Sig: Take 1 tablet by mouth once daily. Date of last office visit in primary care: 12/05/2023 Date of next office visit in primary care: 01/22/2024 Please advise. Thank you. Chapis Womack. [facility] 12-24-2023 Instructions Abigail Balderas APRN.CNP - 12/24/2023 5:54 PM EDT ASSESSMENT/PLAN: 1. Urinary frequency - ICD9: 788.41, ICD10: R35.0 (primary diagnosis) acute - UA normal in office today. - Send urine for culture - UA DIP, URINE (POC) - URINE CULTURE 2. Skin infection - ICD9: 686.9, ICD10: L08.9 - Begin treatment with Cephalaxin (Keflex) - CEPHALEXIN 500 MG CAPSULE - continue to use ointment that was prescribed on 12/05/23. - Follow-up with your PCP in 3-5 days if symptoms have not improved or sooner if symptoms worsen - Discussed red flags and need for immediate medical evaluation if any occur. - Discussed supportive care treatment with fluids, rest and analgesia. - Discussed expected course of illness Abigail Balderas APRN.KEVIN documented in this encounter [facility] 12-24-2023 Note HNO ID: [id number] Author: ABIGAIL BALDERAS APRN.CNP Service: ? Author Type: Nurse Practitioner Type: Progress Notes Filed: 12/24/2023 17:54 Note Text: Subjective HPI Anaya Wilson is a 83 year old female who presents with urinary frequency that started today. She denies other symptoms. No fever or chills. No back pain or abdominal pain. No nausea or vomiting. She also notes a spot on her left heel that is tender and red and seems to be getting larger. She has a history of psoriatic arthritis and stopped taking it for a while due to concern it was causing stomach issues. She has now restarted the medication as stopping it had no effect on stomach concerns. She was seen for this spot on the ankle on 12/05/23 and prescribed a steroid ointment which she has been using. Review of Systems Constitutional: Negative for chills and fever. Respiratory: Negative. Cardiovascular: Negative. Gastrointestinal: Negative for abdominal pain, nausea and vomiting. Genitourinary: Positive for frequency. Negative for dysuria and urgency. Musculoskeletal: Negative for back pain. Skin: Negative for itching and rash. See HPI BP 120/80 Pulse 60 Temp 36.9 ?C (98.5 ?F) Resp 16 Wt 56.3 kg (124 lb 1.9 oz) SpO2 96% BMI 25.94 kg/m? 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 Dementia (HCC) Diverticulosis of colon (without mention of hemorrhage) Dry cough 05/23/2016 Ganglion of joint 07/16/2005 Generalized osteoarthrosis, unspecified site Hemorrhage of gastrointestinal tract, unspecified Hemorrhage of rectum and anus Hypertension Infection of left eye Irritable bowel syndrome Osteomalacia, unspecified Other and unspecified hyperlipidemia Pneumonia, organism unspecified(486) PONV (postoperative nausea and vomiting) Psoriatic arthritis (HCC) Rectocele 01/05/2011 Skin tear of lower leg without complication 05/23/2016 Sprain of unspecified site of sacroiliac region Unspecified constipation Urge incontinence mild PAST SURGICAL HISTORY Procedure Laterality Date ARTHRP KNE CONDYLEANDPLATU MEDIALANDLAT COMPARTMENTS Right 06/03/2017 Knee replacement, total COLONOSCOPY 05/10/2022 rectal mass COLONOSCOPY FLX DX W/COLLJ SPEC WHEN PFRMD 04/20/2002 Colonoscopy COLONOSCOPY FLX DX W/COLLJ SPEC WHEN PFRMD 07/25/2011 Colonoscopy EYE SURGERY HX JOINT REPLACEMENT HX NEUROPLASTY AND/TRANSPOS MEDIAN NRV CARPAL TUNNE 1980 Carpal tunnel decomp b/l hands NEUROPLASTY AND/TRANSPOS MEDIAN NRV CARPAL TUNNE 12/18/2011 RIGHT PAST SURGICAL HISTORY OF Left laser eye surgery for glaucoma SIGMOIDOSCOPY FLX DX W/COLLJ SPEC BR/WA IF PFRMD 06/23/2007 TOTAL ABDOMINAL HYSTERECT W/WO RMVL TUBE OVARY 1988 RUBI/BSO for fibroids and bleeding TOTAL KNEE REPLACEMENT Left 03/28/2020 VAGINAL HYSTERECTOMY ALLERGIES Caffeine, Codeine, Darvocet A500 [Propoxyphene N-Acetaminophen], Demerol [Meperidine (Pf)], Entex [Phenylephrine-Guaifenesin], Ephedrine, Griseofulvin, Milk Containing Products (Dairy), Tramadol, Vicodin [Hydrocodone-Acetaminophen], and Zoloft [Sertraline Hcl] MEDICATIONS fluocinolone-skin [id number] 0.01 % kit Apply to affected area two times a day. clobetasol (TEMOVATE) 0.05 % ointment Apply to affected area two times a day. To posterior ankle hydrocortisone (ANUSOL-HC) 25 mg suppository 1 Suppository by RECTAL route two times a day as needed (hemorrhoids/rectal pain). losartan (COZAAR) 25 mg tablet Take 1 tablet by mouth once daily. FLUoxetine (PROZAC) 10 mg capsule Take 1 capsule by mouth once daily. loratadine (CLARITIN) 10 mg tablet Take 1 tablet by mouth once daily. donepezil (ARICEPT) 10 mg tablet Take 1 tablet by mouth daily at bedtime. famotidine (PEPCID) 10 mg tablet Take 1 tablet by mouth two times a day. Azelaic Acid (FINACEA) 15 % gel Apply to affected area once daily. amitriptyline (ELAVIL) 10 mg tablet Take 1 tablet by mouth daily at bedtime. fluorometholone (FML LIQUID FILM) 0.1 % ophthalmic suspension Use 1 Drop in both eyes once daily. FOLIC ACID ORAL Take by mouth. methotrexate 2.5 mg tablet TAKE 5 TABLET(S) ORAL ONCE A WEEK START 4 TABS ONCE A WEEK FOR 2 WEEKS cephALEXin (KEFLEX) 500 mg capsule Take 1 capsule by mouth two times a day for 7 days. meloxicam (MOBIC) 15 mg tablet Take 1 tablet by mouth once daily. (Patient not taking: Reported on 12/05/2023) FAMILY HISTORY Problem Relation Age of Onset Heart Mother CHF Cancer Father prostate Psychiatry Father Cancer Brother No Known Problems Daughter No Known Problems Daughter No Known Problems Daughter Breast Cancer Maternal Aunt Colon Cancer No Family History Social History Tobacco Use Smoking status: Never Smok (more content not included)... [facility] 12-24-2023 History of Present illness Narrative Subjective HPI Anaya Wilson is a 83 year old female who presents with urinary frequency that started today. She denies other symptoms. No fever or chills. No back pain or abdominal pain. No nausea or vomiting. She also notes a spot on her left heel that is tender and red and seems to be getting larger. She has a history of psoriatic arthritis and stopped taking it for a while due to concern it was causing stomach issues. She has now restarted the medication as stopping it had no effect on stomach concerns. She was seen for this spot on the ankle on 12/05/23 and prescribed a steroid ointment which she has been using. Review of Systems Constitutional: Negative for chills and fever. Respiratory: Negative. Cardiovascular: Negative. Gastrointestinal: Negative for abdominal pain, nausea and vomiting. Genitourinary: Positive for frequency. Negative for dysuria and urgency. Musculoskeletal: Negative for back pain. Skin: Negative for itching and rash. 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 Dementia (HCC) Diverticulosis of colon (without mention of hemorrhage) Dry cough 05/23/2016 Ganglion of joint 07/16/2005 Generalized osteoarthrosis, unspecified site Hemorrhage of gastrointestinal tract, unspecified Hemorrhage of rectum and anus Hypertension Infection of left eye Irritable bowel syndrome Osteomalacia, unspecified Other and unspecified hyperlipidemia Pneumonia, organism unspecified(486) PONV (postoperative nausea and vomiting) Psoriatic arthritis (HCC) Rectocele 01/05/2011 Skin tear of lower leg without complication 05/23/2016 Sprain of unspecified site of sacroiliac region Unspecified constipation Urge incontinence mild PAST SURGICAL HISTORY Procedure Laterality Date ARTHRP KNE CONDYLE&PLATU MEDIAL&LAT COMPARTMENTS Right 06/03/2017 Knee replacement, total COLONOSCOPY 05/10/2022 rectal mass COLONOSCOPY FLX DX W/COLLJ SPEC WHEN PFRMD 04/20/2002 Colonoscopy COLONOSCOPY FLX DX W/COLLJ SPEC WHEN PFRMD 07/25/2011 Colonoscopy EYE SURGERY HX JOINT REPLACEMENT HX NEUROPLASTY &/TRANSPOS MEDIAN NRV CARPAL TUNNE 1979 Carpal tunnel decomp b/l hands NEUROPLASTY &/TRANSPOS MEDIAN NRV CARPAL TUNNE 12/18/2011 RIGHT PAST SURGICAL HISTORY OF Left laser eye surgery for glaucoma SIGMOIDOSCOPY FLX DX W/COLLJ SPEC BR/WA IF PFRMD 06/23/2007 TOTAL ABDOMINAL HYSTERECT W/WO RMVL TUBE OVARY 1988 RUBI/BSO for fibroids and bleeding TOTAL KNEE REPLACEMENT Left 03/28/2020 VAGINAL HYSTERECTOMY ALLERGIES Caffeine, Codeine, Darvocet A500 [Propoxyphene N-Acetaminophen], Demerol [Meperidine (Pf)], Entex [Phenylephrine-Guaifenesin], Ephedrine, Griseofulvin, Milk Containing Products (Dairy), Tramadol, Vicodin [Hydrocodone-Acetaminophen], and Zoloft [Sertraline Hcl] MEDICATIONS fluocinolone-skin [id number] 0.01 % kit Apply to affected area two times a day. clobetasol (TEMOVATE) 0.05 % ointment Apply to affected area two times a day. To posterior ankle hydrocortisone (ANUSOL-HC) 25 mg suppository 1 Suppository by RECTAL route two times a day as needed (hemorrhoids/rectal pain). losartan (COZAAR) 25 mg tablet Take 1 tablet by mouth once daily. FLUoxetine (PROZAC) 10 mg capsule Take 1 capsule by mouth once daily. loratadine (CLARITIN) 10 mg tablet Take 1 tablet by mouth once daily. donepezil (ARICEPT) 10 mg tablet Take 1 tablet by mouth daily at bedtime. famotidine (PEPCID) 10 mg tablet Take 1 tablet by mouth two times a day. Azelaic Acid (FINACEA) 15 % gel Apply to affected area once daily. amitriptyline (ELAVIL) 10 mg tablet Take 1 tablet by mouth daily at bedtime. fluorometholone (FML LIQUID FILM) 0.1 % ophthalmic suspension Use 1 Drop in both eyes once daily. FOLIC ACID ORAL Take by mouth. methotrexate 2.5 mg tablet TAKE 5 TABLET(S) ORAL ONCE A WEEK START 4 TABS ONCE A WEEK FOR 2 WEEKS cephALEXin (KEFLEX) 500 mg capsule Take 1 capsule by mouth two times a day for 7 days. meloxicam (MOBIC) 15 mg tablet Take 1 tablet by mouth once daily. (Patient not taking: Reported on 12/05/2023) FAMILY HISTORY Problem Relation Age of Onset Heart Mother CHF Cancer Father prostate Psychiatry Father Cancer Brother No Known Problems Daughter No Known Problems Daughter No Known Problems Daughter Breast Cancer Maternal Aunt Colon Cancer No Family History Social History Tobacco Use Smoking status: Never Smokeless tobacco: Never Vaping Use Vaping status: Never Used Substance Use Topics Alcohol use: No Drug use: No Objective Physical Exam Vitals and nursing note reviewed. Constitutional: Appearance: Normal appearance. Cardiovascular: Rate and Rhythm: Normal rate. Pulmonary: Effort: Pulmonary effort is normal. Musculoskeletal: General: Tenderness present. No swelling or signs of injury. Skin: General: Skin is warm and dry. Findings: Erythema present. No bruising or rash. Neurological: Mental Status: She is alert. ASSESSMENT/PLAN: 1. Urinary frequency - ICD9: 788.41, ICD10: R35.0 (primary diagnosis) acute - UA normal in office today. - Send urine for culture - UA DIP, URINE (POC) - URINE CULTURE 2. Skin infection - ICD9: 686.9, ICD10: L08.9 - Begin treatment with Cephalaxin (Keflex) - CEPHALEXIN 500 MG CAPSULE - continue to use ointment that was prescribed on 12/05/23. - Follow-up with your PCP in 3-5 days if symptoms have not improved or sooner if symptoms worsen - Discussed red flags and need for immediate medical evaluation if any occur. - Discussed supportive care treatment with fluids, rest and analgesia. - Discussed expected course of illness Abigail Balderas APRN.SHIP KEEPER documented in this encounter [facility] 12-24-2023 Telephone encounter Note Patient calling to state she thinks she may have a UTI with urinary frequency for 2 days. History of UTI's. Pt agreeable to being evaluated as advised, at [facility] this evening. Cherrie Harkins RN [facility] 12-24-2023 Miscellaneous Notes Patient calling to state she thinks she may have a UTI with urinary frequency for 2 days. History of UTI's. Pt agreeable to being evaluated as advised, at [facility] this evening. Cherrie Harkins RN documented in this encounter [facility] 12-05-2023 Instructions Kinga Goldberg APRN.CNP - 12/05/2023 11:18 AM EDT 1) See Dr. Nicholson in Nov. 2) Fluocinolone tape 2 x day to heel documented in this encounter [facility] 12-05-2023 Note HNO ID: [id number] Author: KINGA GOLDBERG APRN.CNP Service: ? Author Type: Clinical Nurse Specialist Type: Progress Notes Filed: 12/05/2023 11:18 Note Text: This is a 83 year old female who presents today with: Patient presents with: Psoriatic Arthritis: Follow up HISTORY OF PRESENT ILLNESS: Anaya Wilson is a 83 year old female. Patient presents with: Psoriatic Arthritis: Follow up Pain in right foot and ankle resolved. C/O rash posterior right heel excoriated and itches. Clobetasol ointment 2 x day not helping. Asking to go back on methotrexate. 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 Dementia (HCC) Diverticulosis of colon (without mention of hemorrhage) Dry cough 05/23/2016 Ganglion of joint 07/16/2005 Generalized osteoarthrosis, unspecified site Hemorrhage of gastrointestinal tract, unspecified Hemorrhage of rectum and anus Hypertension Infection of left eye Irritable bowel syndrome Osteomalacia, unspecified Other and unspecified hyperlipidemia Pneumonia, organism unspecified(486) PONV (postoperative nausea and vomiting) Psoriatic arthritis (HCC) Rectocele 01/05/2011 Skin tear of lower leg without complication 05/23/2016 Sprain of unspecified site of sacroiliac region Unspecified constipation Urge incontinence mild PAST SURGICAL HISTORY Procedure Laterality Date ARTHRP KNE CONDYLEANDPLATU MEDIALANDLAT COMPARTMENTS Right 06/03/2017 Knee replacement, total COLONOSCOPY 05/10/2022 rectal mass COLONOSCOPY FLX DX W/COLLJ SPEC WHEN PFRMD 04/20/2002 Colonoscopy COLONOSCOPY FLX DX W/COLLJ SPEC WHEN PFRMD 07/25/2011 Colonoscopy EYE SURGERY HX JOINT REPLACEMENT HX NEUROPLASTY AND/TRANSPOS MEDIAN NRV CARPAL TUNNE 1979 Carpal tunnel decomp b/l hands NEUROPLASTY AND/TRANSPOS MEDIAN NRV CARPAL TUNNE 12/18/2011 RIGHT PAST SURGICAL HISTORY OF Left laser eye surgery for glaucoma SIGMOIDOSCOPY FLX DX W/COLLJ SPEC BR/WA IF PFRMD 06/23/2007 TOTAL ABDOMINAL HYSTERECT W/WO RMVL TUBE OVARY 1988 RBUI/BSO for fibroids and bleeding TOTAL KNEE REPLACEMENT Left 03/28/2020 VAGINAL HYSTERECTOMY ALLERGIES Caffeine, Codeine, Darvocet A500 [Propoxyphene N-Acetaminophen], Demerol [Meperidine (Pf)], Entex [Phenylephrine-Guaifenesin], Ephedrine, Griseofulvin, Milk Containing Products (Dairy), Tramadol, Vicodin [Hydrocodone-Acetaminophen], and Zoloft [Sertraline Hcl] MEDICATIONS Current Outpatient Medications Medication Sig clobetasol (TEMOVATE) 0.05 % ointment Apply to affected area two times a day. To posterior ankle hydrocortisone (ANUSOL-HC) 25 mg suppository 1 Suppository by RECTAL route two times a day as needed (hemorrhoids/rectal pain). losartan (COZAAR) 25 mg tablet Take 1 tablet by mouth once daily. FLUoxetine (PROZAC) 10 mg capsule Take 1 capsule by mouth once daily. loratadine (CLARITIN) 10 mg tablet Take 1 tablet by mouth once daily. donepezil (ARICEPT) 10 mg tablet Take 1 tablet by mouth daily at bedtime. famotidine (PEPCID) 10 mg tablet Take 1 tablet by mouth two times a day. amitriptyline (ELAVIL) 10 mg tablet Take 1 tablet by mouth daily at bedtime. fluorometholone (FML LIQUID FILM) 0.1 % ophthalmic suspension Use 1 Drop in both eyes once daily. Azelaic Acid (FINACEA) 15 % gel Apply to affected area once daily. meloxicam (MOBIC) 15 mg tablet Take 1 tablet by mouth once daily. (Patient not taking: Reported on 12/05/2023) FOLIC ACID ORAL Take by mouth. No current facility-administered medications for this visit. FAMILY HISTORY Problem Relation Age of Onset Heart Mother CHF Cancer Father prostate Psychiatry Father Cancer Brother No Known Problems Daughter No Known Problems Daughter No Known Problems Daughter Breast Cancer Maternal Aunt Colon Cancer No Family History Social History Tobacco Use Smoking status: Never Smokeless tobacco: Never Vaping Use Vaping status: Never Used Substance Use Topics Alcohol use: No Drug use: No EXAM: BP 120/62 Pulse 62 Resp 14 Wt 54.2 kg (119 lb 7.8 oz) SpO2 98% BMI 24.97 kg/m? PHYSICAL EXAM: Physical Exam Vitals reviewed. Constitutional: Appearance: Normal appearance. HENT: Head: Normocephalic. Musculoskeletal: General: Normal range of motion. Comments: Right ankle full ROM except lateral movement is inhibited quite a bit. Skin: Comments: Right posterior heel with scaly, excoriated. Itchy. No drainage. Some improvement but not much- area size of quarter Neurological: Mental Status: She is alert. LABS: ASSESSMENT/PLAN: 1. Psoriatic arthritis (HCC) - ICD9: 696.0, ICD10: L40.50 (primary diagnosis) Improved with TX - Will follow up with Dr. Nicholson about meth (more content not included)... [facility] 12-05-2023 History of Present illness Narrative This is a 83 year old female who presents today with: Patient presents with: Psoriatic Arthritis: Follow up HISTORY OF PRESENT ILLNESS: Darrowbk Wilson is a 83 year old female. Patient presents with: Psoriatic Arthritis: Follow up Pain in right foot and ankle resolved. C/O rash posterior right heel excoriated and itches. Clobetasol ointment 2 x day not helping. Asking to go back on methotrexate. 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 Dementia (HCC) Diverticulosis of colon (without mention of hemorrhage) Dry cough 05/23/2016 Ganglion of joint 07/16/2005 Generalized osteoarthrosis, unspecified site Hemorrhage of gastrointestinal tract, unspecified Hemorrhage of rectum and anus Hypertension Infection of left eye Irritable bowel syndrome Osteomalacia, unspecified Other and unspecified hyperlipidemia Pneumonia, organism unspecified(486) PONV (postoperative nausea and vomiting) Psoriatic arthritis (HCC) Rectocele 01/05/2011 Skin tear of lower leg without complication 05/23/2016 Sprain of unspecified site of sacroiliac region Unspecified constipation Urge incontinence mild PAST SURGICAL HISTORY Procedure Laterality Date ARTHRP KNE CONDYLE&PLATU MEDIAL&LAT COMPARTMENTS Right 06/03/2017 Knee replacement, total COLONOSCOPY 05/10/2022 rectal mass COLONOSCOPY FLX DX W/COLLJ SPEC WHEN PFRMD 04/20/2002 Colonoscopy COLONOSCOPY FLX DX W/COLLJ SPEC WHEN PFRMD 07/25/2011 Colonoscopy EYE SURGERY HX JOINT REPLACEMENT HX NEUROPLASTY &/TRANSPOS MEDIAN NRV CARPAL TUNNE 1979 Carpal tunnel decomp b/l hands NEUROPLASTY &/TRANSPOS MEDIAN NRV CARPAL TUNNE 12/18/2011 RIGHT PAST SURGICAL HISTORY OF Left laser eye surgery for glaucoma SIGMOIDOSCOPY FLX DX W/COLLJ SPEC BR/WA IF PFRMD 06/23/2007 TOTAL ABDOMINAL HYSTERECT W/WO RMVL TUBE OVARY 1988 RUBI/BSO for fibroids and bleeding TOTAL KNEE REPLACEMENT Left 03/28/2020 VAGINAL HYSTERECTOMY ALLERGIES Caffeine, Codeine, Darvocet A500 [Propoxyphene N-Acetaminophen], Demerol [Meperidine (Pf)], Entex [Phenylephrine-Guaifenesin], Ephedrine, Griseofulvin, Milk Containing Products (Dairy), Tramadol, Vicodin [Hydrocodone-Acetaminophen], and Zoloft [Sertraline Hcl] MEDICATIONS Current Outpatient Medications Medication Sig clobetasol (TEMOVATE) 0.05 % ointment Apply to affected area two times a day. To posterior ankle hydrocortisone (ANUSOL-HC) 25 mg suppository 1 Suppository by RECTAL route two times a day as needed (hemorrhoids/rectal pain). losartan (COZAAR) 25 mg tablet Take 1 tablet by mouth once daily. FLUoxetine (PROZAC) 10 mg capsule Take 1 capsule by mouth once daily. loratadine (CLARITIN) 10 mg tablet Take 1 tablet by mouth once daily. donepezil (ARICEPT) 10 mg tablet Take 1 tablet by mouth daily at bedtime. famotidine (PEPCID) 10 mg tablet Take 1 tablet by mouth two times a day. amitriptyline (ELAVIL) 10 mg tablet Take 1 tablet by mouth daily at bedtime. fluorometholone (FML LIQUID FILM) 0.1 % ophthalmic suspension Use 1 Drop in both eyes once daily. Azelaic Acid (FINACEA) 15 % gel Apply to affected area once daily. meloxicam (MOBIC) 15 mg tablet Take 1 tablet by mouth once daily. (Patient not taking: Reported on 12/05/2023) FOLIC ACID ORAL Take by mouth. No current facility-administered medications for this visit. FAMILY HISTORY Problem Relation Age of Onset Heart Mother CHF Cancer Father prostate Psychiatry Father Cancer Brother No Known Problems Daughter No Known Problems Daughter No Known Problems Daughter Breast Cancer Maternal Aunt Colon Cancer No Family History Social History Tobacco Use Smoking status: Never Smokeless tobacco: Never Vaping Use Vaping status: Never Used Substance Use Topics Alcohol use: No Drug use: No EXAM: BP 120/62 Pulse 62 Resp 14 Wt 54.2 kg (119 lb 7.8 oz) SpO2 98% BMI 24.97 kg/m PHYSICAL EXAM: Physical Exam Vitals reviewed. Constitutional: Appearance: Normal appearance. HENT: Head: Normocephalic. Musculoskeletal: General: Normal range of motion. Comments: Right ankle full ROM except lateral movement is inhibited quite a bit. Skin: Comments: Right posterior heel with scaly, excoriated. Itchy. No drainage. Some improvement but not much- area size of quarter Neurological: Mental Status: She is alert. LABS: ASSESSMENT/PLAN: 1. Psoriatic arthritis (HCC) - ICD9: 696.0, ICD10: L40.50 (primary diagnosis) Improved with TX - Will follow up with Dr. Nicholson about methotrexate 2. Psoriasis - ICD9: 696.1, ICD10: L40.9 Ongoing - Clobetasol ointment not helping - Will try fluocinolone tape to heel 2 x day Discussed treatment plan and patient voices understanding. Patient's questions answered appropriately. Medications and potential side effects were discussed and patient voices understanding. Return to the office as scheduled or as needed for worsening/no improvement. Kinga Goldberg APRN.CNP documented in this encounter [facility] 12-04-2023 Telephone encounter Note Patient calls to request appointment with Kinga Goldberg for worsening flare up of psoriatic arthritis flare up. Patient reports that she now has another area on the right foot that is painful with small (less than a pencil eraser) red raised areas. Afebrile. Follow up scheduled per patient request. Nurse triage recommends within 24 hours. Scheduled first available with provider. Patient wanting to have looked at by same provider as previously. Armida Warren RN [facility] 12-04-2023 Miscellaneous Notes Patient calls to request appointment with Kinga Goldberg for worsening flare up of psoriatic arthritis flare up. Patient reports that she now has another area on the right foot that is painful with small (less than a pencil eraser) red raised areas. Afebrile. Follow up scheduled per patient request. Nurse triage recommends within 24 hours. Scheduled first available with provider. Patient wanting to have looked at by same provider as previously. Armida Warren RN documented in this encounter [facility] 11-28-2023 Telephone encounter Note Patient returned call and went over results from Tasneem Goldberg NP with understanding. [facility] 11-28-2023 Miscellaneous Notes Patient returned call and went over results from Tasneem Goldberg NP with understanding. Left message to call and speak with nurse. Please let patient know that her x-ray of her ankle was normal. documented in this encounter [facility] 11-28-2023 Telephone encounter Note Left message to call and speak with nurse. [facility] 11-28-2023 Telephone encounter Note Please let patient know that her x-ray of her ankle was normal. [facility] 11-25-2023 History of Present illness Narrative Radiology Service Progress Note PATIENT NAME: Anaya Wilson DATE OF SERVICE: November 25, 2023 TIME: 1:12 PM PATIENT IDENTITY VERIFICATION COMPLETED USING TWO (2) IDENTIFIERS: Name and Date of confirmed by patient verbally. FALL SCREENING: Has the patient had 2 falls in the last year or 1 fall with injury or currently using an Ambulatory Assistive Device (Walker, Cane, Wheelchair, Crutches, etc.)? No PATIENT GENDER DATA: Female. status: : No status: NO. PATIENT RELEVANT IMPLANT DATA REVIEWED: Not Applicable PATIENT PRESENTS WITH AN IMPLANTABLE OR ATTACHED PANTOGRAPH I ENGRAVER: No RADIOLOGY DEPARTMENT: General X-ray: Exam(s) Completed: Lower Extremity X-Ray(s): Ankle, Right and Wt. Bearing PERIPHERAL IV DATA: Not applicable SIGNED BY: RT Boy(R) November 25, 2023 1:12 PM documented in this encounter [facility] 11-25-2023 Note HNO ID: [id number] Author: GRACE CR RT(R) Service: Radiology Author Type: Technologist Type: Progress Notes Filed: 11/25/2023 13:20 Note Text: Radiology Service Progress Note PATIENT NAME: Anaya Wilson DATE OF SERVICE: November 25, 2023 TIME: 1:12 PM PATIENT IDENTITY VERIFICATION COMPLETED USING TWO (2) IDENTIFIERS: Name and Date of confirmed by patient verbally. FALL SCREENING: Has the patient had 2 falls in the last year or 1 fall with injury or currently using an Ambulatory Assistive Device (Walker, Cane, Wheelchair, Crutches, etc.)? No PATIENT GENDER DATA: Female. status: : No status: NO. PATIENT RELEVANT IMPLANT DATA REVIEWED: Not Applicable PATIENT PRESENTS WITH AN IMPLANTABLE OR ATTACHED PANTOGRAPH I ENGRAVER: No RADIOLOGY DEPARTMENT: General X-ray: Exam(s) Completed: Lower Extremity X-Ray(s): Ankle, Right and Wt. Bearing PERIPHERAL IV DATA: Not applicable SIGNED BY: RT Boy(R) November 25, 2023 1:12 PM [facility] 11-25-2023 Instructions Kinga Goldberg APRN.CNP - 11/25/2023 1:05 PM EDT 1) Medrol taper as discussed 2) Clobetasol ointment daily to right ankle- back 3) Xray today 4) Follow up Dr. Nicholson in January 5) Call if symptom does not get better or returns documented in this encounter [facility] 11-25-2023 Note HNO ID: [id number] Author: KINGA GOLDBERG APRN.SHIP KEEPER Service: ? Author Type: Clinical Nurse Specialist Type: Progress Notes Filed: 11/25/2023 13:03 Note Text: This is a 83 year old female who presents today with: Patient presents with: Pain: Right foot, back of heel HISTORY OF PRESENT ILLNESS: Anaya Wilson is a 83 year old female. Patient presents with: Pain: Right foot, back of heel [facility]. When she got home, she noticed pain in distal lateral malleolus. Wears flats. Denies injury. Pain 5/10, hurts to dorso-flexion or plantar flexion foot. No instability. Never had this pain before. Iced it yesterday, no improvement. Did not take anything for it. No worse with pressure such a the mattress or sheet. Able to sleep with the pain. Was on methotrexate and saw Social Media Content Specialist. Quit seeing her and stopped medication about 1 months ago. 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 Dementia (HCC) Diverticulosis of colon (without mention of hemorrhage) Dry cough 05/23/2016 Ganglion of joint 07/16/2005 Generalized osteoarthrosis, unspecified site Hemorrhage of gastrointestinal tract, unspecified Hemorrhage of rectum and anus Hypertension Infection of left eye Irritable bowel syndrome Osteomalacia, unspecified Other and unspecified hyperlipidemia Pneumonia, organism unspecified(486) PONV (postoperative nausea and vomiting) Psoriatic arthritis (HCC) Rectocele 01/05/2011 Skin tear of lower leg without complication 05/23/2016 Sprain of unspecified site of sacroiliac region Unspecified constipation Urge incontinence mild PAST SURGICAL HISTORY Procedure Laterality Date ARTHRP KNE CONDYLEANDPLATU MEDIALANDLAT COMPARTMENTS Right 06/03/2017 Knee replacement, total COLONOSCOPY 05/10/2022 rectal mass COLONOSCOPY FLX DX W/COLLJ SPEC WHEN PFRMD 04/20/2002 Colonoscopy COLONOSCOPY FLX DX W/COLLJ SPEC WHEN PFRMD 07/25/2011 Colonoscopy EYE SURGERY HX JOINT REPLACEMENT HX NEUROPLASTY AND/TRANSPOS MEDIAN NRV CARPAL TUNNE 1980 Carpal tunnel decomp b/l hands NEUROPLASTY AND/TRANSPOS MEDIAN NRV CARPAL TUNNE 12/18/2011 RIGHT PAST SURGICAL HISTORY OF Left laser eye surgery for glaucoma SIGMOIDOSCOPY FLX DX W/COLLJ SPEC BR/WA IF PFRMD 06/23/2007 TOTAL ABDOMINAL HYSTERECT W/WO RMVL TUBE OVARY 1988 RUBI/BSO for fibroids and bleeding TOTAL KNEE REPLACEMENT Left 03/28/2020 VAGINAL HYSTERECTOMY ALLERGIES Caffeine, Codeine, Darvocet A500 [Propoxyphene N-Acetaminophen], Demerol [Meperidine (Pf)], Entex [Phenylephrine-Guaifenesin], Ephedrine, Griseofulvin, Milk Containing Products (Dairy), Tramadol, Vicodin [Hydrocodone-Acetaminophen], and Zoloft [Sertraline Hcl] MEDICATIONS Current Outpatient Medications Medication Sig hydrocortisone (ANUSOL-HC) 25 mg suppository 1 Suppository by RECTAL route two times a day as needed (hemorrhoids/rectal pain). losartan (COZAAR) 25 mg tablet Take 1 tablet by mouth once daily. FLUoxetine (PROZAC) 10 mg capsule Take 1 capsule by mouth once daily. loratadine (CLARITIN) 10 mg tablet Take 1 tablet by mouth once daily. donepezil (ARICEPT) 10 mg tablet Take 1 tablet by mouth daily at bedtime. famotidine (PEPCID) 10 mg tablet Take 1 tablet by mouth two times a day. Azelaic Acid (FINACEA) 15 % gel Apply to affected area once daily. amitriptyline (ELAVIL) 10 mg tablet Take 1 tablet by mouth daily at bedtime. meloxicam (MOBIC) 15 mg tablet Take 1 tablet by mouth once daily. fluorometholone (FML LIQUID FILM) 0.1 % ophthalmic suspension Use 1 Drop in both eyes once daily. FOLIC ACID ORAL Take by mouth. benzonatate (TESSALON PERLE) 100 mg capsule Take 2 capsules by mouth three times a day as needed. (Patient not taking: Reported on 11/13/2023) No current facility-administered medications for this visit. FAMILY HISTORY Problem Relation Age of Onset Heart Mother CHF Cancer Father prostate Psychiatry Father Cancer Brother No Known Problems Daughter No Known Problems Daughter No Known Problems Daughter Breast Cancer Maternal Aunt Colon Cancer No Family History Social History Tobacco Use Smoking status: Never Smokeless tobacco: Never Vaping Use Vaping status: Never Used Substance Use Topics Alcohol use: No Drug use: No EXAM: BP 120/64 Pulse 62 Temp 36.6 ?C (97.9 ?F) Wt 54 kg (119 lb) SpO2 97% BMI 24.87 kg/m? PHYSICAL EXAM: Physical Exam Vitals reviewed. Constitutional: Appearance: Normal appearance. HENT: Head: Normocephalic. Cardiovascular: Rate and Rhythm: Normal rate and regular rhythm. Pulses: Normal pulses. Heart sounds: Normal heart sounds. Pulmonary: Effort: Pulmonary effort is (more content not included)... [facility] 11-25-2023 History of Present illness Narrative This is a 83 year old female who presents today with: Patient presents with: Pain: Right foot, back of heel HISTORY OF PRESENT ILLNESS: Anaya Wilson is a 83 year old female. Patient presents with: Pain: Right foot, back of heel [facility] yesterday. When she got home, she noticed pain in distal lateral malleolus. Wears flats. Denies injury. Pain 5/10, hurts to dorso-flexion or plantar flexion foot. No instability. Never had this pain before. Iced it yesterday, no improvement. Did not take anything for it. No worse with pressure such a the mattress or sheet. Able to sleep with the pain. Was on methotrexate and saw Social Media Content Specialist. Quit seeing her and stopped medication about 1 months ago. 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 Dementia (HCC) Diverticulosis of colon (without mention of hemorrhage) Dry cough 05/23/2016 Ganglion of joint 07/16/2005 Generalized osteoarthrosis, unspecified site Hemorrhage of gastrointestinal tract, unspecified Hemorrhage of rectum and anus Hypertension Infection of left eye Irritable bowel syndrome Osteomalacia, unspecified Other and unspecified hyperlipidemia Pneumonia, organism unspecified(486) PONV (postoperative nausea and vomiting) Psoriatic arthritis (HCC) Rectocele 01/05/2011 Skin tear of lower leg without complication 05/23/2016 Sprain of unspecified site of sacroiliac region Unspecified constipation Urge incontinence mild PAST SURGICAL HISTORY Procedure Laterality Date ARTHRP KNE CONDYLE&PLATU MEDIAL&LAT COMPARTMENTS Right 06/03/2017 Knee replacement, total COLONOSCOPY 05/10/2022 rectal mass COLONOSCOPY FLX DX W/COLLJ SPEC WHEN PFRMD 04/20/2002 Colonoscopy COLONOSCOPY FLX DX W/COLLJ SPEC WHEN PFRMD 07/25/2011 Colonoscopy EYE SURGERY HX JOINT REPLACEMENT HX NEUROPLASTY &/TRANSPOS MEDIAN NRV CARPAL TUNNE 1979 Carpal tunnel decomp b/l hands NEUROPLASTY &/TRANSPOS MEDIAN NRV CARPAL TUNNE 12/18/2011 RIGHT PAST SURGICAL HISTORY OF Left laser eye surgery for glaucoma SIGMOIDOSCOPY FLX DX W/COLLJ SPEC BR/WA IF PFRMD 06/23/2007 TOTAL ABDOMINAL HYSTERECT W/WO RMVL TUBE OVARY 1988 RUBI/BSO for fibroids and bleeding TOTAL KNEE REPLACEMENT Left 03/28/2020 VAGINAL HYSTERECTOMY ALLERGIES Caffeine, Codeine, Darvocet A500 [Propoxyphene N-Acetaminophen], Demerol [Meperidine (Pf)], Entex [Phenylephrine-Guaifenesin], Ephedrine, Griseofulvin, Milk Containing Products (Dairy), Tramadol, Vicodin [Hydrocodone-Acetaminophen], and Zoloft [Sertraline Hcl] MEDICATIONS Current Outpatient Medications Medication Sig hydrocortisone (ANUSOL-HC) 25 mg suppository 1 Suppository by RECTAL route two times a day as needed (hemorrhoids/rectal pain). losartan (COZAAR) 25 mg tablet Take 1 tablet by mouth once daily. FLUoxetine (PROZAC) 10 mg capsule Take 1 capsule by mouth once daily. loratadine (CLARITIN) 10 mg tablet Take 1 tablet by mouth once daily. donepezil (ARICEPT) 10 mg tablet Take 1 tablet by mouth daily at bedtime. famotidine (PEPCID) 10 mg tablet Take 1 tablet by mouth two times a day. Azelaic Acid (FINACEA) 15 % gel Apply to affected area once daily. amitriptyline (ELAVIL) 10 mg tablet Take 1 tablet by mouth daily at bedtime. meloxicam (MOBIC) 15 mg tablet Take 1 tablet by mouth once daily. fluorometholone (FML LIQUID FILM) 0.1 % ophthalmic suspension Use 1 Drop in both eyes once daily. FOLIC ACID ORAL Take by mouth. benzonatate (TESSALON PERLE) 100 mg capsule Take 2 capsules by mouth three times a day as needed. (Patient not taking: Reported on 11/13/2023) No current facility-administered medications for this visit. FAMILY HISTORY Problem Relation Age of Onset Heart Mother CHF Cancer Father prostate Psychiatry Father Cancer Brother No Known Problems Daughter No Known Problems Daughter No Known Problems Daughter Breast Cancer Maternal Aunt Colon Cancer No Family History Social History Tobacco Use Smoking status: Never Smokeless tobacco: Never Vaping Use Vaping status: Never Used Substance Use Topics Alcohol use: No Drug use: No EXAM: BP 120/64 Pulse 62 Temp 36.6 C (97.9 F) Wt 54 kg (119 lb) SpO2 97% BMI 24.87 kg/m PHYSICAL EXAM: Physical Exam Vitals reviewed. Constitutional: Appearance: Normal appearance. HENT: Head: Normocephalic. Cardiovascular: Rate and Rhythm: Normal rate and regular rhythm. Pulses: Normal pulses. Heart sounds: Normal heart sounds. Pulmonary: Effort: Pulmonary effort is normal. Breath sounds: Normal breath sounds. Comments: Diminished in right base but clear Abdominal: Palpations: Abdomen is soft. Musculoskeletal: Comments: Right lateral ankle pain & 1 + edema. Slightly red. Posterior ankle with a psoriatic rash much like the strap of a sandal Flexion of foot causes pain, extension causes pain. Poor lateral rocking movement but medial rotation good. D.P. 2+ Neurological: Mental Status: She is alert. LABS: ASSESSMENT/PLAN: 1. Pain in lateral portion of right ankle - ICD9: 719.47, ICD10: M25.571 Possible sprain vs psoriatic arthritis flare - XR ANKLE GENERAL 3V AP/LAT/OBL RIGHT - METHYLPREDNISOLONE 4 MG TABLETS IN A DOSE PACK - CLOBETASOL 0.05 % TOPICAL OINTMENT Discussed treatment plan and patient voices understanding. Patient's questions answered appropriately. Medications and potential side effects were discussed and patient voices understanding. Return to the office as scheduled or as needed for worsening/no improvement. Kinga Goldberg APRN.KEVIN documented in this encounter [facility] 11-18-2023 Telephone encounter Note Prescription Refill Information The patient has been identified by name and date of : Yes Caregiver verified no other encounters exist for this prescription request: Yes Caregiver confirmed with patient/requestor that no other refills are due, in the near future, with this provider at this time: Yes The last office visit in the department: 10-22-23 Does the patient have a future office visit with this provider/department: Yes Requested Prescriptions Pending Prescriptions Disp Refills hydrocortisone (ANUSOL-HC) 25 mg suppository 12 Each 3 Si Suppository by RECTAL route two times a day as needed (hemorrhoids/rectal pain). Arlen Paul November 18, 2023 2:36 PM [facility] 11-18-2023 Miscellaneous Notes Prescription Refill Information The patient has been identified by name and date of : Yes Caregiver verified no other encounters exist for this prescription request: Yes Caregiver confirmed with patient/requestor that no other refills are due, in the near future, with this provider at this time: Yes The last office visit in the department: 10-22-23 Does the patient have a future office visit with this provider/department: Yes Requested Prescriptions Pending Prescriptions Disp Refills hydrocortisone (ANUSOL-HC) 25 mg suppository 12 Each 3 Si Suppository by RECTAL route two times a day as needed (hemorrhoids/rectal pain). Arlen Paul November 18, 2023 2:36 PM documented in this encounter [facility] 11-13-2023 History and physical note Images from the original note were not included. REASON FOR VISIT: Pancreatic cyst HPI: Anaya Wilson is a 83 year old female who presents on the request of Dr. Mendez for evaluation of pancreatic cyst. She is a pleasant 83 years old female who appears healthy and came with her of 64 years. She had abdominal pain which prompted some investigation including right upper ultrasound 05/08/2023 which was unremarkable. MRCP 05/24/2023 described 1.8 cm cystic lesion in the pancreatic body without definite communication with the pancreatic duct. No suspicious enhancing lesion. CT scan of the abdomen pelvis 09/23/2023 described 1.7 x 1.4 cm cystic mass in the pancreatic body. Review of medical record showed that she had MRCP 12/27/2022 which showed 1.8 x 1.8 x 1.5 cm cystic lesion with several thin septations in the posterior body of the pancreas without pancreas duct dilation or divisum. The patient is completely asymptomatic today. Denies abdominal pain, nausea vomiting or weight loss. Her cousin had negative cancer and in her late 50s. Does not smoke cigarettes and drink alcohol socially. She is and has 3 daughters. She retired in 2007 from [employer]. Previous work up includes: 05/10/[address] Rivas: Impression: - Preparation of the colon was fair. - Rectal mass 0 to 2 cm from the anal verge. - One large polyp in the rectum. Biopsied. Looks malignant, bleeds like crazy. - The examination was otherwise normal. A. Rectum, mass, biopsies: - Negative for malignancy; see comment - Fragments of colonic mucosa with ischemic change and ulceration. Diagnosis Comment The biopsy shows colonic mucosa with mucosal prolapse, ulceration and ischemic type changes. There is no evidence of dysplasia or malignancy. Multiple deeper tissue levels have been examined. The presence of a mass lesion is noted. 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 Clinical correlation is recommended. 05/08/2023 US abd spleen: No acute abnormalities in the right upper quadrant. No splenomegaly. 05/24/2023 MRCP: Pancreas: No pancreatic ductal dilatation. Again seen is a loculated cystic lesion in the pancreatic body measuring 1.8 cm (8:25), without definite communication to the duct. No suspicious enhancing nodules. IMPRESSION: Unchanged lobulated cystic lesion in the pancreatic body, without definite communication to the nondilated duct. No suspicious enhancing nodules. Differential includes a sidebranch IPMN or an oligocystic serous adenoma. 09/23/2023 CTAP w/ IV contrast: Pancreas: There is again noted be a cystic mass in the posterior aspect of the mid body of the pancreas. It measures 1.4 x 1.7 cm on axial image 04/26. Previously measured 1.8 cm on MRI from 05/22/2023. IMPRESSION: 1. 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 It appears to be similar in size to the previous MRI 2. No acute changes are seen Latest Ref Rng 09/23/2023 10/22/2023 WBC 3.70 - 11.00 k/uL 5.51 RBC 3.90 - 5.20 m/uL 4.58 Hemoglobin 11.5 - 15.5 g/dL 13.9 Hematocrit 36.0 - 46.0 % 42.2 MCV 80.0 - 100.0 fL 92.1 MCH 26.0 - 34.0 pg 30.3 MCHC 30.5 - 36.0 g/dL 32.9 RDW-CV 11.5 - 15.0 % 14.0 Platelet Count 150 - 400 k/uL 251 MPV 9.0 - 12.7 fL 9.9 Neut% % 67.5 Abs Neut (ANC) 1.45 - 7.50 k/uL 3.72 Lymph% % 22.0 Abs Lymph 1.00 - 4.00 k/uL 1.21 Phillips% % 8.9 Abs Phillips <0.87 k/uL 0.49 Eosin% % 0.5 Abs Eosin <0.46 k/uL 0.03 Baso% % 0.4 Abs Baso <0.11 k/uL <0.03 Immature Gran % %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 REPLACEMENT; Left No date: VAGINAL HYSTERECTOMY ALLERGIES Caffeine, Codeine, Darvocet A500 [Propoxyphene N-Acetaminophen], Demerol [Meperidine (Pf)], Entex [Phenylephrine-Guaifenesin], Ephedrine, Griseofulvin, Milk Containing Products (Dairy), Tramadol, Vicodin [Hydrocodone-Acetaminophen], and Zoloft [Sertraline Hcl] MEDICATIONS FLUoxetine (PROZAC) 10 mg capsule Take 1 capsule by mouth once daily. loratadine (CLARITIN) 10 mg tablet Take 1 tablet by mouth once daily. donepezil (ARICEPT) 10 mg tablet Take 1 tablet by mouth daily at bedtime. famotidine (PEPCID) 10 mg tablet Take 1 tablet by mouth two times a day. hydrocortisone (ANUSOL-HC) 25 mg suppository 1 Suppository by RECTAL route two times a day as needed (hemorrhoids/rectal pain). Azelaic Acid (FINACEA) 15 % gel Apply to affected area once daily. losartan (COZAAR) 25 mg tablet TAKE 1 TABLET BY MOUTH EVERY DAY amitriptyline (ELAVIL) 10 mg tablet Take 1 tablet by mouth daily at bedtime. meloxicam (MOBIC) 15 mg tablet Take 1 tablet by mouth once daily. fluorometholone (FML LIQUID FILM) 0.1 % ophthalmic suspension Use 1 Drop in both eyes once daily. FOLIC ACID ORAL Take by mouth. benzonatate (TESSALON PERLE) 100 mg capsule Take 2 capsules by mouth three times a day as needed. (Patient not taking: Reported on 10/28/2023) FAMILY HISTORY Problem Relation Age of Onset Heart Mother CHF Cancer Father prostate Psychiatry Father Cancer Brother No Known Problems Daughter No Known Problems Daughter No Known Problems Daughter Breast Cancer Maternal Aunt Social History Tobacco Use Smoking status: Never Smokeless tobacco: Never Vaping Use Vaping status: Never Used Substance Use Topics Alcohol use: No Drug use: No Review of Systems Constitutional: Negative for chills and fever. HENT: Negative for congestion, ear pain and sore throat. Respiratory: Positive for cough. Negative for shortness of breath. Cardiovascular: Negative for chest pain. Gastrointestinal: Negative for diarrhea and vomiting. Objective BP 120/60 Pulse 60 Temp 36.8 ?C (98.3 ?F) Resp 21 Wt 52.8 kg (116 lb 6.5 oz) SpO2 97% BMI 24.33 kg/m? Physical Exam Vitals and nursing note reviewed. Constitutional: General (more content not included)... [facility] 10-28-2023 History of Present illness Narrative This note was created using [employer]. Subjective Anaya Wilson is a 83 year old female. HPI 83-year-old female presents for cough. Patient has had a cough x 2 days. She states it is a dry cough. She has not had any fevers, nasal congestion, sore throat, vomiting or diarrhea. Still able to eat and drink. No chest pain or shortness of breath. recently tested positive for COVID. She would like tested for this. She has not taken anything [id number] for her symptoms. She denies any other complaint. PAST MEDICAL HISTORY No date: Abdominal pain, right upper quadrant No date: Acute bronchitis No date: Acute pharyngitis No date: Arthritis Comment: neck No date: Burn of unspecified degree of unspecified site of lower limb (leg) 11/19/2011: Carpal tunnel syndrome No date: Chronic rhinitis 08/2018: COPD, mild (HCC) No date: Dementia (HCC) No date: Diverticulosis of colon (without mention of hemorrhage) 05/23/2016: Dry cough 07/16/2005: Ganglion of joint No date: Generalized osteoarthrosis, unspecified site No date: Hemorrhage of gastrointestinal tract, unspecified No date: Hemorrhage of rectum and anus No date: Hypertension No date: Infection of left eye No date: Irritable bowel syndrome No date: Osteomalacia, unspecified No date: Other and unspecified hyperlipidemia No date: Pneumonia, organism unspecified(486) No date: PONV (postoperative nausea and vomiting) No date: Psoriatic arthritis (HCC) 01/05/2011: Rectocele 05/23/2016: Skin tear of lower leg without complication No date: Sprain of unspecified site of sacroiliac region No date: Unspecified constipation No date: Urge incontinence Comment: mild PAST SURGICAL HISTORY 06/03/2017: ARTHRP KNE CONDYLE&PLATU MEDIAL&LAT COMPARTMENTS; Right Comment: Knee replacement, total 05/10/2022: COLONOSCOPY Comment: rectal mass 04/20/2002: COLONOSCOPY FLX DX W/COLLJ SPEC WHEN PFRMD Comment: Colonoscopy 07/25/2011: COLONOSCOPY FLX DX W/COLLJ SPEC WHEN PFRMD Comment: Colonoscopy No date: EYE SURGERY HX No date: JOINT REPLACEMENT HX 1979: NEUROPLASTY &/TRANSPOS MEDIAN NRV CARPAL TUNNE Comment: Carpal tunnel decomp b/l hands 12/18/2011: NEUROPLASTY &/TRANSPOS MEDIAN NRV CARPAL TUNNE Comment: RIGHT No date: PAST SURGICAL HISTORY OF; Left Comment: laser eye surgery for glaucoma 06/23/2007: SIGMOIDOSCOPY FLX DX W/COLLJ SPEC BR/WA IF PFRMD 1988: TOTAL ABDOMINAL HYSTERECT W/WO RMVL TUBE OVARY Comment: RUBI/BSO for fibroids and bleeding 03/28/2020: TOTAL KNEE REPLACEMENT; Left No date: VAGINAL HYSTERECTOMY ALLERGIES Caffeine, Codeine, Darvocet A500 [Propoxyphene N-Acetaminophen], Demerol [Meperidine (Pf)], Entex [Phenylephrine-Guaifenesin], Ephedrine, Griseofulvin, Milk Containing Products (Dairy), Tramadol, Vicodin [Hydrocodone-Acetaminophen], and Zoloft [Sertraline Hcl] MEDICATIONS FLUoxetine (PROZAC) 10 mg capsule Take 1 capsule by mouth once daily. loratadine (CLARITIN) 10 mg tablet Take 1 tablet by mouth once daily. donepezil (ARICEPT) 10 mg tablet Take 1 tablet by mouth daily at bedtime. famotidine (PEPCID) 10 mg tablet Take 1 tablet by mouth two times a day. hydrocortisone (ANUSOL-HC) 25 mg suppository 1 Suppository by RECTAL route two times a day as needed (hemorrhoids/rectal pain). Azelaic Acid (FINACEA) 15 % gel Apply to affected area once daily. losartan (COZAAR) 25 mg tablet TAKE 1 TABLET BY MOUTH EVERY DAY amitriptyline (ELAVIL) 10 mg tablet Take 1 tablet by mouth daily at bedtime. meloxicam (MOBIC) 15 mg tablet Take 1 tablet by mouth once daily. fluorometholone (FML LIQUID FILM) 0.1 % ophthalmic suspension Use 1 Drop in both eyes once daily. FOLIC ACID ORAL Take by mouth. benzonatate (TESSALON PERLE) 100 mg capsule Take 2 capsules by mouth three times a day as needed. (Patient not taking: Reported on 10/28/2023) FAMILY HISTORY Problem Relation Age of Onset Heart Mother CHF Cancer Father prostate Psychiatry Father Cancer Brother No Known Problems Daughter No Known Problems Daughter No Known Problems Daughter Breast Cancer Maternal Aunt Social History Tobacco Use Smoking status: Never Smokeless tobacco: Never Vaping Use Vaping status: Never Used Substance Use Topics Alcohol use: No Drug use: No Review of Systems Constitutional: Negative for chills and fever. HENT: Negative for congestion, ear pain and sore throat. Respiratory: Positive for cough. Negative for shortness of breath. Cardiovascular: Negative for chest pain. Gastrointestinal: Negative for diarrhea and vomiting. Objective BP 120/60 Pulse 60 Temp 36.8 C (98.3 F) Resp 21 Wt 52.8 kg (116 lb 6.5 oz) SpO2 97% BMI 24.33 kg/m Physical Exam Vitals and nursing note reviewed. Constitutional: General: She is not in acute distress. Appearance: Normal appearance. She is not toxic-appearing. HENT: Right Ear: Tympanic membrane and ear canal normal. Left Ear: Tympanic membrane and ear canal normal. Nose: Nose normal. Mouth/Throat: Mouth: Mucous membranes are moist. Eyes: Conjunctiva/sclera: Conjunctivae normal. Cardiovascular: Rate and Rhythm: Normal rate and regular rhythm. Pulmonary: Effort: Pulmonary effort is normal. Breath sounds: Normal breath sounds. No wheezing, rhonchi or rales. Skin: General: Skin is warm and dry. Neurological: Mental Status: She is alert. Assessment and Plan ASSESSMENT/PLAN: 1. Acute cough - ICD9: 786.2, ICD10: R05.1 (primary diagnosis) -Suspect viral. Lungs clear. -Recommend [id number] cough/cold medication as needed, honey, fluids, rest, Tylenol/Motrin as needed for fever. -Patient did have exposure to with COVID. -Discussed antiviral. Patient declines. - COVID NAAT, UPPER RESPIRATORY, ROUTINE 2. Exposure to COVID-19 virus - ICD9: V01.79, ICD10: Z20.822 - COVID NAAT, UPPER RESPIRATORY, ROUTINE Diagnosis and treatment plan were discussed and questions were answered to the patient's satisfaction. Pt acknowledged understanding of concepts and follow up plan. Specific signs and symptoms that would indicate the need for higher level of care were discussed in detail warranting prompt ER evaluation. SUSAN Hayden documented in this encounter [facility] 10-28-2023 Note HNO ID: [id number] Author: EDENILSON NICHOLSON, DO Service: ? Author Type: Physician Type: Progress Notes Filed: 10/28/2023 08:48 Note Text: CC: Anaya Wilson is a 83 year old female who presents to the office for follow up HPI: Seen in office on 07/16/23, at that visit Dx on 07/04/2023 with UTI, tx with Macrobid, states still +sx-urinary urgency and frequency. RUQ and epigastric pain for about a week, intermittently but now becoming more consistent. +nausea, no vomiting/diarrhea. Appetite is normal. Is random, no rhyme or reason. Is not worsened or better with eating. Has had some extra stress lately. 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 Is questioning nerves as a cause. Is not interested in therapy/psychology at this time. At last OFFICE VISIT on 09/18/2023 RUQ and epigastric pain for about 2 months, intermittently but now becoming more consistent. +nausea, no vomiting/diarrhea. Appetite is normal. Is random, no rhyme or reason. Is not worsened or better with eating. No blood in stool. Is having normal bowel movements. No new medications or changes. Memory, dementia, taking aricept 5 mg a day which was started 2-3 months ago. Tolerating medication well with SE. Mood, stable, taking the Prozac 10 mg, no concerns Currently Memory, dementia, was previously taking aricept 5 mg a day which was started 3-4 months ago. Tolerating medication well with SE. At last OFFICE VISIT her dose was increased to 10 mg a day which she is tolerating well Mood, stable, taking the Prozac 10 mg, no concerns. does feel that she is more calm and less irritable when something doesn't go her way HTN, overall seems to be well controlled. Taking Losartan without SE, no CP or dyspnea or dizziness/Lh or edema PAST MEDICAL HISTORY No date: Abdominal pain, right upper quadrant No date: Acute bronchitis No date: Acute pharyngitis No date: Arthritis Comment: neck No date: Burn of unspecified degree of unspecified site of lower limb (leg) 11/19/2011: Carpal tunnel syndrome No date: Chronic rhinitis 08/2018: COPD, mild (HCC) No date: Dementia (HCC) No date: Diverticulosis of colon (without mention of hemorrhage) 05/23/2016: Dry cough 07/16/2005: Ganglion of joint No date: Generalized osteoarthrosis, unspecified site No date: Hemorrhage of gastrointestinal tract, unspecified No date: Hemorrhage of rectum and anus No date: Hypertension No date: Infection of left eye No date: Irritable bowel syndrome No date: Osteomalacia, unspecified No date: Other and unspecified hyperlipidemia No date: Pneumonia, organism unspecified(486) No date: PONV (postoperative nausea and vomiting) No date: Psoriatic arthritis (HCC) 01/05/2011: Rectocele 05/23/2016: Skin tear of lower leg without complication No date: Sprain of unspecified site of sacroiliac region No date: Unspecified constipation No date: Urge incontinence Comment: mild PAST SURGICAL HISTORY 06/03/2017: ARTHRP KNE CONDYLEANDPLATU MEDIALANDLAT COMPARTMENTS; Right Comment: Knee replacement, total 05/10/2022: COLONOSCOPY Comment: rectal mass 04/20/2002: COLONOSCOPY FLX DX W/COLLJ SPEC WHEN PFRMD Comment: Colonoscopy 07/25/2011: COLONOSCOPY FLX DX W/COLLJ SPEC WHEN PFRMD Comment: Colonoscopy No date: EYE SURGERY HX No date: JOINT REPLACEMENT HX 1980: NEUROPLASTY AND/TRANSPOS MEDIAN NRV CARPAL TUNNE Comment: Carpal tunnel decomp b/l hands 12/18/2011: NEUROPLASTY AND/TRANSPOS MEDIAN NRV CARPAL TUNNE Comment: RIGHT No date: PAST SURGICAL HISTORY OF; Left Comment: laser eye surgery for glaucoma 06/23/2007: SIGMOIDOSCOPY FLX DX W/COLLJ SPEC BR/WA IF PFRMD 1988: TOTAL ABDOMINAL HYSTERECT W/WO RMVL TUBE OVARY Comment: RUBI/BSO for fibroids and bleeding 03/28/2020: TOTAL KNEE REPLACEMENT; Left No date: VAGINAL HYSTERECTOMY Social History: Social History Tobacco Use Smoking status: Never Smokeless tobacco: Never Vaping Use Vaping status: Never Used Substance Use Topics Alcohol use: No Drug use: No FAMILY HISTORY Problem Relation Age of Onset Heart Mother CHF Cancer Father prostate Psychiatry Father Cancer Brother No Known Problems Daughter No Known Problems Daughter No Known Problems Daughter Breast Cancer Maternal Aunt Current Outpatient prescriptions: FLUoxetine (PROZAC) 10 mg capsule Take 1 capsule by mouth once daily. loratadine (CLARITIN) 10 mg tablet Take 1 tablet by mouth once daily. donepezil (ARICEPT) 10 mg tablet Take 1 tablet by mouth daily at bedtime. famotidine (PEPCID) 10 mg tablet Take 1 tablet by mouth two times a day. benzonatate (TESSALON PERLE) 100 mg capsule Take 2 capsules by mouth three times a day as needed. hydrocortisone (ANUSOL-HC) 25 mg suppository 1 Suppository by RECTAL route two times a day as needed (hemorrhoids/rectal pain). Azelaic Acid (FINACEA) 15 % gel Apply to affected area once daily. losartan (COZAAR) 25 mg tablet (more content not included)... [facility] 10-28-2023 History of Present illness Narrative CC: Anaya Wilson is a 83 year old female who presents to the office for follow up HPI: Seen in office on 07/16/23, at that visit Dx on 07/04/2023 with UTI, tx with Macrobid, states still +sx-urinary urgency and frequency. RUQ and epigastric pain for about a week, intermittently but now becoming more consistent. +nausea, no vomiting/diarrhea. Appetite is normal. Is random, no rhyme or reason. Is not worsened or better with eating. Has had some extra stress lately. 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 Is questioning nerves as a cause. Is not interested in therapy/psychology at this time. At last OFFICE VISIT on 09/18/2023 RUQ and epigastric pain for about 2 months, intermittently but now becoming more consistent. +nausea, no vomiting/diarrhea. Appetite is normal. Is random, no rhyme or reason. Is not worsened or better with eating. No blood in stool. Is having normal bowel movements. No new medications or changes. Memory, dementia, taking aricept 5 mg a day which was started 2-3 months ago. Tolerating medication well with SE. Mood, stable, taking the Prozac 10 mg, no concerns Currently Memory, dementia, was previously taking aricept 5 mg a day which was started 3-4 months ago. Tolerating medication well with SE. At last OFFICE VISIT her dose was increased to 10 mg a day which she is tolerating well Mood, stable, taking the Prozac 10 mg, no concerns. does feel that she is more calm and less irritable when something doesn't go her way HTN, overall seems to be well controlled. Taking Losartan without SE, no CP or dyspnea or dizziness/Lh or edema PAST MEDICAL HISTORY No date: Abdominal pain, right upper quadrant No date: Acute bronchitis No date: Acute pharyngitis No date: Arthritis Comment: neck No date: Burn of unspecified degree of unspecified site of lower limb (leg) 11/19/2011: Carpal tunnel syndrome No date: Chronic rhinitis 08/2018: COPD, mild ([facility]) No date: Dementia ([facility]) No date: Diverticulosis of colon (without mention of hemorrhage) 05/23/2016: Dry cough 07/16/2005: Ganglion of joint No date: Generalized osteoarthrosis, unspecified site No date: Hemorrhage of gastrointestinal tract, unspecified No date: Hemorrhage of rectum and anus No date: Hypertension No date: Infection of left eye No date: Irritable bowel syndrome No date: Osteomalacia, unspecified No date: Other and unspecified hyperlipidemia No date: Pneumonia, organism unspecified(486) No date: PONV (postoperative nausea and vomiting) No date: Psoriatic arthritis (HCC) 01/05/2011: Rectocele 05/23/2016: Skin tear of lower leg without complication No date: Sprain of unspecified site of sacroiliac region No date: Unspecified constipation No date: Urge incontinence Comment: mild PAST SURGICAL HISTORY 06/03/2017: ARTHRP KNE CONDYLE&PLATU MEDIAL&LAT COMPARTMENTS; Right Comment: Knee replacement, total 05/10/2022: COLONOSCOPY Comment: rectal mass 04/20/2002: COLONOSCOPY FLX DX W/COLLJ SPEC WHEN PFRMD Comment: Colonoscopy 07/25/2011: COLONOSCOPY FLX DX W/COLLJ SPEC WHEN PFRMD Comment: Colonoscopy No date: EYE SURGERY HX No date: JOINT REPLACEMENT HX 1979: NEUROPLASTY &/TRANSPOS MEDIAN NRV CARPAL TUNNE Comment: Carpal tunnel decomp b/l hands 12/18/2011: NEUROPLASTY &/TRANSPOS MEDIAN NRV CARPAL TUNNE Comment: RIGHT No date: PAST SURGICAL HISTORY OF; Left Comment: laser eye surgery for glaucoma 06/23/2007: SIGMOIDOSCOPY FLX DX W/COLLJ SPEC BR/WA IF PFRMD 1988: TOTAL ABDOMINAL HYSTERECT W/WO RMVL TUBE OVARY Comment: RUBI/BSO for fibroids and bleeding 03/28/2020: TOTAL KNEE REPLACEMENT; Left No date: VAGINAL HYSTERECTOMY Social History: Social History Tobacco Use Smoking status: Never Smokeless tobacco: Never Vaping Use Vaping status: Never Used Substance Use Topics Alcohol use: No Drug use: No FAMILY HISTORY Problem Relation Age of Onset Heart Mother CHF Cancer Father prostate Psychiatry Father Cancer Brother No Known Problems Daughter No Known Problems Daughter No Known Problems Daughter Breast Cancer Maternal Aunt Current Outpatient prescriptions: FLUoxetine (PROZAC) 10 mg capsule Take 1 capsule by mouth once daily. loratadine (CLARITIN) 10 mg tablet Take 1 tablet by mouth once daily. donepezil (ARICEPT) 10 mg tablet Take 1 tablet by mouth daily at bedtime. famotidine (PEPCID) 10 mg tablet Take 1 tablet by mouth two times a day. benzonatate (TESSALON PERLE) 100 mg capsule Take 2 capsules by mouth three times a day as needed. hydrocortisone (ANUSOL-HC) 25 mg suppository 1 Suppository by RECTAL route two times a day as needed (hemorrhoids/rectal pain). Azelaic Acid (FINACEA) 15 % gel Apply to affected area once daily. losartan (COZAAR) 25 mg tablet TAKE 1 TABLET BY MOUTH EVERY DAY amitriptyline (ELAVIL) 10 mg tablet Take 1 tablet by mouth daily at bedtime. meloxicam (MOBIC) 15 mg tablet Take 1 tablet by mouth once daily. fluorometholone (FML LIQUID FILM) 0.1 % ophthalmic suspension Use 1 Drop in both eyes once daily. FOLIC ACID ORAL Take by mouth. Allergies: ALLERGIES Allergen Reactions Caffeine Codeine Darvocet A500 [Prop* Vomiting Demerol [Meperidine* Vomiting Entex [Phenylephrin* Ephedrine Other: See Comments Heart palpitations Griseofulvin Milk Containing Pro* Intolerance Nasal stuffiness Tramadol Other: See Comments Nausea, vomiting, dry heaves after carpal tunnel surgery Vicodin [Hydrocodon* Itching Zoloft [Sertraline * Mental Status Change Increased anxiety and feeling of depression. Started in 2005, not noted then ROS: See HPI PE: 10/22/23 1139 10/22/23 1142 BP: 140/80 130/76 Pulse: 60 Resp: 20 Temp: 36.1 C (97 F) TempSrc: Right Tympanic Weight: 54.4 kg (120 lb) Gen: A&O, NAD, non-toxic appearing, Pleasant, cooperative HEENT: NT/AC, PERRLA, EOMs intact b/l, nares clear and patent b/l, pharynx without erythema, exudate or lesions. Uvula midline. MMM, EACs without erythema or debris. TMs pearly howard with intact landmarks b/l. Neck: supple, No cervical LAD, no thyromegaly, no carotid bruits CV: RRR, normal S1 and S2, no murmurs, no gallops, no rubs, Pulses 2+ and symmetric in UE and LE b/l Lungs: normal respiratory effort, CTA b/l, no wheezing or rhonchi or rales Abd: soft, NT, ND, +BS, no hepatosplenomegaly MS: FROM all 4 extremities Neuro: CN II-XII intact b/l, strength 5/5 b/l UE and LE, DTRs 2/4 UE and LE, sensation intact. Skin: warm, dry, intact, No rashes or lesions on exposed skin. No edema, normal pulses ASSESSMENT/PLAN: 1. JOSHUA (generalized anxiety disorder) - ICD9: 300.02, ICD10: F41.1 (primary diagnosis) rx refilled, chronic, stable - FLUOXETINE 10 MG CAPSULE 2. Bee sting, accidental or unintentional, initial encounter - ICD9: 989.5, E905.3, ICD10: T63.441A rx refilled, stable - LORATADINE 10 MG TABLET 3. Osteoarthritis of spine with radiculopathy, cervical region - ICD9: 721.0, ICD10: M47.22 Stable, continue exercises and stretches. 4. Radiculopathy, cervical region - ICD9: 723.4, ICD10: M54.12 Stable, continue exercises and stretches. 5. Hypertension, essential - ICD9: 401.9, ICD10: I10 - Controlled - Continue current medications - Recommend home blood pressure monitoring, to bring results to next visit - Encouraged sodium restriction, DASH or Mediterranean diet - Recommend regular aerobic exercise 6. Hyperlipidemia, mixed - ICD9: 272.2, ICD10: E78.2 - Controlled - Continue current medications - Counseled on healthy diet and regular exercise 7. Dementia without behavioral disturbance (HCC) - ICD9: 294.20, ICD10: F03.90 Stable, continue Aricept, she has seen Neurologist in the past- isn't interested in pursuing additional testing per Edenilson Nicholson DO To ER if develops chest pain, shortness of breath, or severe worsening of symptoms. Discussed risks, benefits, alternatives, and potential side effects of medications. Patient expressed understanding and agreed with the plan. Edenilson Nicholson DO [address] [place] [address] documented in this encounter [facility] 10-24-2023 Telephone encounter Note Scheduled, per message below. Thank you, [facility] 10-24-2023 Miscellaneous Notes Scheduled, per message below. Thank you, This pt needs to be seen in pancreas clinic. Please schedule on 11/13/2023. Thank you, Mary Miranda RN Spouse calling for who was seen by Dr. Mendez. Stating, Dr. Mendez is referring for elevated levels. Also stating PT has tumor in pancreas? First available appt was scheduled for Nov 19. Pt lives in [place], [place]. Please review and advise if PT needs earlier appt. Thank you, documented in this encounter [facility] 10-24-2023 Telephone encounter Note This pt needs to be seen in pancreas clinic. Please schedule on 11/13/2023. Thank you, Mary Miranda RN [facility] Work Phone: 10-24-2023 Telephone encounter Note Spouse calling for who was seen by Dr. Mendez. Stating, Dr. Mendez is referring for elevated levels. Also stating PT has tumor in pancreas? First available appt was scheduled for Nov 19. Pt lives in [place], [place]. Please review and advise if PT needs earlier appt. Thank you, [facility] 10-22-2023 Instructions Edenilson Nicholson DO - 10/22/2023 12:16 PM EDT Stool softener - Docusate sodium can take up to 2 capsules twice a day (start with 1 capsule a day and then increase to 2 capsules if needed once a day in the evening) Soak hands or feet in warm water with epsom salts (1/2 cup) for 15-20 minutes at a time. documented in this encounter [facility] 09-24-2023 Telephone encounter Note Pt's calls to report pt was in [place] ER yesterday for vomiting. Pt was advised to follow up with GI. is requesting pcp review ER report and would like to know if pcp has a recommendation for a GI dr. Please review and advise. Taty Aguilar LPN [facility] 09-24-2023 Miscellaneous Notes Pt's calls to report pt was in [place] ER yesterday for vomiting. Pt was advised to follow up with GI. is requesting pcp review ER report and would like to know if pcp has a recommendation for a GI dr. Please review and advise. Taty Aguilar LPN documented in this encounter [facility] 09-22-2023 Telephone encounter Note Reason for Call: Abdominal pain, vomiting. Patient resting, triage completed with . Outcome: Patient's was conferenced to Kathrin in [facility] for PCP scheduling within 24 hours, and was advised to go to urgent care or ER if needed. Reason for Disposition [1] MODERATE pain (e.g., interferes with normal activities) AND [2] comes and goes (cramps) AND [3] present > 24 hours (Exception: Pain with Vomiting or Diarrhea - see that Guideline.) NURSING JUDGEMENT: symptoms present <24 hours. Upgrade due to potential dehydration concern. Answer Assessment - Initial Assessment Questions 1. LOCATION: epigastric pain 2. RADIATION: denies 3. ONSET: 09/22/23, [id number] 4. SUDDEN: sudden onset, woke from sleep 5. PATTERN: intermittent, patient now resting 6. SEVERITY: resting now 7. RECURRENT SYMPTOM: N/A 8. AGGRAVATING FACTORS: denies 9. CARDIAC SYMPTOMS: nausea, diaphoresis, chills/shaking 10. OTHER SYMPTOMS: denies 11. : N/A -patient had nausea, vomiting, chills/diaphoresis earlier today ([id number]). Three episodes of emesis, and dry heaving. Emesis appeared like what she ate last. Patient has since been resting, able to ambulate to use restroom. has concern that symptoms could be related to patient's medication Donepezil. Has not kept anything down (liquid/food) today, has not taken meds. Protocols used: Abdominal Pain - [id number] [facility] 09-22-2023 Miscellaneous Notes Reason for Call: Abdominal pain, vomiting. Patient resting, triage completed with . Outcome: Patient's was conferenced to Kathrin in [facility] for PCP scheduling within 24 hours, and was advised to go to urgent care or ER if needed. Reason for Disposition [1] MODERATE pain (e.g., interferes with normal activities) AND [2] comes and goes (cramps) AND [3] present > 24 hours (Exception: Pain with Vomiting or Diarrhea - see that Guideline.) NURSING JUDGEMENT: symptoms present <24 hours. Upgrade due to potential dehydration concern. Answer Assessment - Initial Assessment Questions 1. LOCATION: epigastric pain 2. RADIATION: denies 3. ONSET: 09/22/23, [id number] 4. SUDDEN: sudden onset, woke from sleep 5. PATTERN: intermittent, patient now resting 6. SEVERITY: resting now 7. RECURRENT SYMPTOM: N/A 8. AGGRAVATING FACTORS: denies 9. CARDIAC SYMPTOMS: nausea, diaphoresis, chills/shaking 10. OTHER SYMPTOMS: denies 11. : N/A -patient had nausea, vomiting, chills/diaphoresis earlier today ([id number]). Three episodes of emesis, and dry heaving. Emesis appeared like what she ate last. Patient has since been resting, able to ambulate to use restroom. has concern that symptoms could be related to patient's medication Donepezil. Has not kept anything down (liquid/food) today, has not taken meds. Protocols used: Abdominal Pain - [id number] documented in this encounter [facility] 09-18-2023 Note HNO ID: [id number] Author: BHARAT EDENILSON, DO Service: ? Author Type: Physician Type: Progress Notes Filed: 09/18/2023 20:43 Note Text: CC: Anaya Wilson is a 83 year old female who presents to the office for follow up HPI: Seen in office on 07/16/23, at that visit Dx on 07/04/2023 with UTI, tx with Macrobid, states still +sx-urinary urgency and frequency. RUQ and epigastric pain for about a week, intermittently but now becoming more consistent. +nausea, no vomiting/diarrhea. Appetite is normal. Is random, no rhyme or reason. Is not worsened or better with eating. Has had some extra stress lately. 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 Is questioning nerves as a cause. Is not interested in therapy/psychology at this time. Currently RUQ and epigastric pain for about 2 months, intermittently but now becoming more consistent. +nausea, no vomiting/diarrhea. Appetite is normal. Is random, no rhyme or reason. Is not worsened or better with eating. No blood in stool. Is having normal bowel movements. No new medications or changes. Memory, dementia, taking aricept 5 mg a day which was started 2-3 months ago. Tolerating medication well with SE. 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 Dementia (HCC) Diverticulosis of colon (without mention of hemorrhage) Dry cough 05/23/2016 Ganglion of joint 07/16/2005 Generalized osteoarthrosis, unspecified site Hemorrhage of gastrointestinal tract, unspecified Hemorrhage of rectum and anus Hypertension Infection of left eye Irritable bowel syndrome Osteomalacia, unspecified Other and unspecified hyperlipidemia Pneumonia, organism unspecified(486) PONV (postoperative nausea and vomiting) Psoriatic arthritis (HCC) Rectocele 01/05/2011 Skin tear of lower leg without complication 05/23/2016 Sprain of unspecified site of sacroiliac region Unspecified constipation Urge incontinence mild PAST SURGICAL HISTORY Procedure Laterality Date ARTHRP KNE CONDYLEANDPLATU MEDIALANDLAT COMPARTMENTS Right 06/03/2017 Knee replacement, total COLONOSCOPY 05/10/2022 rectal mass COLONOSCOPY FLX DX W/COLLJ SPEC WHEN PFRMD 04/20/2002 Colonoscopy COLONOSCOPY FLX DX W/COLLJ SPEC WHEN PFRMD 07/25/2011 Colonoscopy EYE SURGERY HX JOINT REPLACEMENT HX NEUROPLASTY AND/TRANSPOS MEDIAN NRV CARPAL TUNNE 1979 Carpal tunnel decomp b/l hands NEUROPLASTY AND/TRANSPOS MEDIAN NRV CARPAL TUNNE 12/18/2011 RIGHT PAST SURGICAL HISTORY OF Left laser eye surgery for glaucoma SIGMOIDOSCOPY FLX DX W/COLLJ SPEC BR/WA IF PFRMD 06/23/2007 TOTAL ABDOMINAL HYSTERECT W/WO RMVL TUBE OVARY 1988 RUBI/BSO for fibroids and bleeding TOTAL KNEE REPLACEMENT Left 03/28/2020 VAGINAL HYSTERECTOMY Current Outpatient Medications Medication Sig FLUoxetine (PROZAC) 10 mg capsule Take 1 capsule by mouth once daily. donepezil (ARICEPT) 10 mg tablet Take 1 tablet by mouth daily at bedtime. famotidine (PEPCID) 10 mg tablet Take 1 tablet by mouth two times a day. benzonatate (TESSALON PERLE) 100 mg capsule Take 2 capsules by mouth three times a day as needed. hydrocortisone (ANUSOL-HC) 25 mg suppository 1 Suppository by RECTAL route two times a day as needed (hemorrhoids/rectal pain). Azelaic Acid (FINACEA) 15 % gel Apply to affected area once daily. losartan (COZAAR) 25 mg tablet TAKE 1 TABLET BY MOUTH EVERY DAY amitriptyline (ELAVIL) 10 mg tablet Take 1 tablet by mouth daily at bedtime. loratadine (CLARITIN) 10 mg tablet Take 1 tablet by mouth once daily. meloxicam (MOBIC) 15 mg tablet Take 1 tablet by mouth once daily. methotrexate 2.5 mg tablet Take 6 tablets once weekly,on fluorometholone (FML LIQUID FILM) 0.1 % ophthalmic suspension Use 1 Drop in both eyes once daily. FOLIC ACID ORAL Take by mouth. No current facility-administered medications for this visit. ALLERGIES Allergen Reactions Caffeine Codeine Darvocet A500 [Prop* Vomiting Demerol [Meperidine* Vomiting Entex [Phenylephrin* Ephedrine Other: See Comments Heart palpitations Griseofulvin Milk Containing Pro* Intolerance Nasal stuffiness Tramadol Other: See Comments Nausea, vomiting, dry heaves after carpal tunnel surgery Vicodin [Hydrocodon* Itching Zoloft [Sertraline * Mental Status Change Increased anxiety and feeling of depression. Started in 2005, not noted then Social History Tobacco Use Smoking status: Never Smokeless tobacco: Never Vaping Use Vaping Use: Never used Substance Use Topics Alcohol use: No Drug use: No ROS: See HPI PE: BP 120/60 Pulse 60 Temp (Src) 98 (Left Tympanic) Resp 16 Wt 119 lb (54.0kg) General Appeara (more content not included)... [facility] 09-18-2023 History of Present illness Narrative CC: Anaya Wilson is a 83 year old female who presents to the office for follow up HPI: Seen in office on 07/16/23, at that visit Dx on 07/04/2023 with UTI, tx with Macrobid, states still +sx-urinary urgency and frequency. RUQ and epigastric pain for about a week, intermittently but now becoming more consistent. +nausea, no vomiting/diarrhea. Appetite is normal. Is random, no rhyme or reason. Is not worsened or better with eating. Has had some extra stress lately. 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 Is questioning nerves as a cause. Is not interested in therapy/psychology at this time. Currently RUQ and epigastric pain for about 2 months, intermittently but now becoming more consistent. +nausea, no vomiting/diarrhea. Appetite is normal. Is random, no rhyme or reason. Is not worsened or better with eating. No blood in stool. Is having normal bowel movements. No new medications or changes. Memory, dementia, taking aricept 5 mg a day which was started 2-3 months ago. Tolerating medication well with SE. 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 Dementia (HCC) Diverticulosis of colon (without mention of hemorrhage) Dry cough 05/23/2016 Ganglion of joint 07/16/2005 Generalized osteoarthrosis, unspecified site Hemorrhage of gastrointestinal tract, unspecified Hemorrhage of rectum and anus Hypertension Infection of left eye Irritable bowel syndrome Osteomalacia, unspecified Other and unspecified hyperlipidemia Pneumonia, organism unspecified(486) PONV (postoperative nausea and vomiting) Psoriatic arthritis (HCC) Rectocele 01/05/2011 Skin tear of lower leg without complication 05/23/2016 Sprain of unspecified site of sacroiliac region Unspecified constipation Urge incontinence mild PAST SURGICAL HISTORY Procedure Laterality Date ARTHRP KNE CONDYLE&PLATU MEDIAL&LAT COMPARTMENTS Right 06/03/2017 Knee replacement, total COLONOSCOPY 05/10/2022 rectal mass COLONOSCOPY FLX DX W/COLLJ SPEC WHEN PFRMD 04/20/2002 Colonoscopy COLONOSCOPY FLX DX W/COLLJ SPEC WHEN PFRMD 07/25/2011 Colonoscopy EYE SURGERY HX JOINT REPLACEMENT HX NEUROPLASTY &/TRANSPOS MEDIAN NRV CARPAL TUNNE 1980 Carpal tunnel decomp b/l hands NEUROPLASTY &/TRANSPOS MEDIAN NRV CARPAL TUNNE 12/18/2011 RIGHT PAST SURGICAL HISTORY OF Left laser eye surgery for glaucoma SIGMOIDOSCOPY FLX DX W/COLLJ SPEC BR/WA IF PFRMD 06/23/2007 TOTAL ABDOMINAL HYSTERECT W/WO RMVL TUBE OVARY 1988 RUBI/BSO for fibroids and bleeding TOTAL KNEE REPLACEMENT Left 03/28/2020 VAGINAL HYSTERECTOMY Current Outpatient Medications Medication Sig FLUoxetine (PROZAC) 10 mg capsule Take 1 capsule by mouth once daily. donepezil (ARICEPT) 10 mg tablet Take 1 tablet by mouth daily at bedtime. famotidine (PEPCID) 10 mg tablet Take 1 tablet by mouth two times a day. benzonatate (TESSALON PERLE) 100 mg capsule Take 2 capsules by mouth three times a day as needed. hydrocortisone (ANUSOL-HC) 25 mg suppository 1 Suppository by RECTAL route two times a day as needed (hemorrhoids/rectal pain). Azelaic Acid (FINACEA) 15 % gel Apply to affected area once daily. losartan (COZAAR) 25 mg tablet TAKE 1 TABLET BY MOUTH EVERY DAY amitriptyline (ELAVIL) 10 mg tablet Take 1 tablet by mouth daily at bedtime. loratadine (CLARITIN) 10 mg tablet Take 1 tablet by mouth once daily. meloxicam (MOBIC) 15 mg tablet Take 1 tablet by mouth once daily. methotrexate 2.5 mg tablet Take 6 tablets once weekly,on fluorometholone (FML LIQUID FILM) 0.1 % ophthalmic suspension Use 1 Drop in both eyes once daily. FOLIC ACID ORAL Take by mouth. No current facility-administered medications for this visit. ALLERGIES Allergen Reactions Caffeine Codeine Darvocet A500 [Prop* Vomiting Demerol [Meperidine* Vomiting Entex [Phenylephrin* Ephedrine Other: See Comments Heart palpitations Griseofulvin Milk Containing Pro* Intolerance Nasal stuffiness Tramadol Other: See Comments Nausea, vomiting, dry heaves after carpal tunnel surgery Vicodin [Hydrocodon* Itching Zoloft [Sertraline * Mental Status Change Increased anxiety and feeling of depression. Started in 2005, not noted then Social History Tobacco Use Smoking status: Never Smokeless tobacco: Never Vaping Use Vaping Use: Never used Substance Use Topics Alcohol use: No Drug use: No ROS: See HPI PE: BP 120/60 Pulse 60 Temp (Src) 98 (Left Tympanic) Resp 16 Wt 119 lb (54.0kg) General Appearance: Well appearing, alert, in no acute distress, well-hydrated, well nourished.. short term memory loss Lungs: Lungs clear to auscultation. No wheezing, rhonchi, rales.. Heart: RRR without murmur, gallop, or rubs. No ectopy. Abdomen: Normal abdominal exam, Abdomen soft, non-tender. Bowel sounds normal. No masses, organomegaly. Psychiatric: pleasant, cooperative, occasionally repetitive speech. ASSESSMENT/PLAN: 1. Dementia without behavioral disturbance (HCC) - ICD9: 294.20, ICD10: F03.90 (primary diagnosis) Increase aricept dose to 10 mg a day, she is tolerating medication well. and her are agreeable. Have offered referral to neurologist if interested. - DONEPEZIL 10 MG TABLET 2. JOSHUA (generalized anxiety disorder) - ICD9: 300.02, ICD10: F41.1 Increase aricept dose to 10 mg a day, she is tolerating medication well. and her are agreeable. Have offered referral to neurologist if interested. Continue prozac medication - FLUOXETINE 10 MG CAPSULE 3. Abdominal discomfort - ICD9: 789.00, ICD10: R10.9 unsure cause Continue pepcid 20 mg twice a day Concerns for medication SE- stop methotrexate 4. Hypertension, essential - ICD9: 401.9, ICD10: I10 - Controlled - Continue current medications - Recommend home blood pressure monitoring, to bring results to next visit - Encouraged sodium restriction, DASH or Mediterranean diet - Recommend regular aerobic exercise Edenilson Nicholson DO Return if no improvement. Follow up with Edenilson Nicholson DO. To ER if develops chest pain, shortness of breath. Discussed risks, benefits, alternatives, and potential side effects of medications. Patient/Guardian expressed understanding and agreed with the plan. See patient instructions. Edenilson Nicholson DO [address] [place] [address] documented in this encounter [facility] 09-18-2023 Instructions Edenilson Nicholson DO - 09/18/2023 6:58 PM EDT STOP the methotrexate and the folic acid Use the Aspercream or the Voltaren cream on your inner right knee area on the bursitis area where there is pain Increase the donezapil to 10 mg a day for memory documented in this encounter [facility] 08-17-2023 Telephone encounter Note Patient returning call, Patient states her told her [facility] just called. Nothing noted in chart. Asked to check if a message was left. Patient states there is a voicemail but she needs to hang up to listen to it. Line disconnected. [facility] 08-17-2023 Miscellaneous Notes Patient returning call, Patient states her told her [facility] just called. Nothing noted in chart. Asked to check if a message was left. Patient states there is a voicemail but she needs to hang up to listen to it. Line disconnected. documented in this encounter [facility] 08-09-2023 Telephone encounter Note Patient has been identified by name and date of : Yes, Armida Warren RN Date 08/09/2023 Time 12:18 pm Patient phones for refill(s): Requested Prescriptions Pending Prescriptions Disp Refills amoxicillin (AMOXIL) 500 mg capsule 4 capsule 0 Sig: Take 4 capsules by mouth one time only for 1 dose. Take 1 hour prior to appointment Date of last office visit in primary care: 07/16/2023 Date of next office visit in primary care: 08/14/2023 Please advise. Thank you. Armida Warren RN. [facility] 08-09-2023 Miscellaneous Notes Patient has been identified by name and date of : Yes, Armida Warren RN Date 08/09/2023 Time 12:18 pm Patient phones for refill(s): Requested Prescriptions Pending Prescriptions Disp Refills amoxicillin (AMOXIL) 500 mg capsule 4 capsule 0 Sig: Take 4 capsules by mouth one time only for 1 dose. Take 1 hour prior to appointment Date of last office visit in primary care: 07/16/2023 Date of next office visit in primary care: 08/14/2023 Please advise. Thank you. Armida Warren RN. documented in this encounter [facility] 08-02-2023 Telephone encounter Note Patient normally had this going to [facility] but now would like it sent to [facility]. Patient has been identified by name and date of : Yes Patient phones for refill(s): Requested Prescriptions Pending Prescriptions Disp Refills famotidine (PEPCID) 10 mg tablet 30 tablet 5 Sig: Take 1 tablet by mouth two times a day. Date of last office visit in primary care: 07/16/2023 Date of next office visit in primary care: 08/14/2023 Please advise. Thank you. Natali Solano LPN. [facility] 08-02-2023 Miscellaneous Notes Patient normally had this going to [facility] but now would like it sent to [facility]. Patient has been identified by name and date of : Yes Patient phones for refill(s): Requested Prescriptions Pending Prescriptions Disp Refills famotidine (PEPCID) 10 mg tablet 30 tablet 5 Sig: Take 1 tablet by mouth two times a day. Date of last office visit in primary care: 07/16/2023 Date of next office visit in primary care: 08/14/2023 Please advise. Thank you. Natali Solano LPN. documented in this encounter [facility] 08-01-2023 Telephone encounter Note Spoke with patient. She states she was looking at an old prescription bottle. She was also not aware that she has refills available with new script sent on 07/16/23. She will contact the pharmacy for refill. Elizabeth Perez RN [facility] 08-01-2023 Miscellaneous Notes Spoke with patient. She states she was looking at an old prescription bottle. She was also not aware that she has refills available with new script sent on 07/16/23. She will contact the pharmacy for refill. Elizabeth Perez RN Famotidine 10 mg on active med list with several refills at [facility] in [place]. TC to patient to clarify if wanting to increase to the 40 mg. No answer, left VM to return call. JEFF Morrison Patient requesting medication famotidine (PEPCID) 40 mg tablet . PHARMACY: [facility] documented in this encounter [facility] 08-01-2023 Telephone encounter Note Famotidine 10 mg on active med list with several refills at [facility] in [place]. TC to patient to clarify if wanting to increase to the 40 mg. No answer, left VM to return call. JEFF Morrison [facility] 08-01-2023 Telephone encounter Note Patient requesting medication famotidine (PEPCID) 40 mg tablet . PHARMACY: [facility] 07-16-2023 History of Present illness Narrative Chief Complaint Patient presents with: Abdominal Pain: Intermittent mid upper abd pain and nausea x months reports urinary frequency x few days. HPI Anaya Wilson is a 83 year old female who presents here today for Above Complaints.. Dx on 07/04/2023 with UTI, tx with Macrobid, states still +sx-urinary urgency and frequency. Currently: RUQ and epigastric pain for about a week, intermittently but now becoming more consistent. +nausea, no vomiting/diarrhea. Appetite is normal. Is random, no rhyme or reason. Is not worsened or better with eating. Has had some extra stress lately. 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 Is questioning nerves as a cause. Is not interested in therapy/psychology at this time. Past medical history, appointments, medications, allergies reviewed. 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 Dementia (HCC) Diverticulosis of colon (without mention of hemorrhage) Dry cough 05/23/2016 Ganglion of joint 07/16/2005 Generalized osteoarthrosis, unspecified site Hemorrhage of gastrointestinal tract, unspecified Hemorrhage of rectum and anus Hypertension Infection of left eye Irritable bowel syndrome Osteomalacia, unspecified Other and unspecified hyperlipidemia Pneumonia, organism unspecified(486) PONV (postoperative nausea and vomiting) Psoriatic arthritis (HCC) Rectocele 01/05/2011 Skin tear of lower leg without complication 05/23/2016 Sprain of unspecified site of sacroiliac region Unspecified constipation Urge incontinence mild Previous Surgical History PAST SURGICAL HISTORY Procedure Laterality Date ARTHRP KNE CONDYLE&PLATU MEDIAL&LAT COMPARTMENTS Right 06/03/2017 Knee replacement, total COLONOSCOPY 05/10/2022 rectal mass COLONOSCOPY FLX DX W/COLLJ SPEC WHEN PFRMD 04/20/2002 Colonoscopy COLONOSCOPY FLX DX W/COLLJ SPEC WHEN PFRMD 07/25/2011 Colonoscopy EYE SURGERY HX JOINT REPLACEMENT HX NEUROPLASTY &/TRANSPOS MEDIAN NRV CARPAL TUNNE 1979 Carpal tunnel decomp b/l hands NEUROPLASTY &/TRANSPOS MEDIAN NRV CARPAL TUNNE 12/18/2011 RIGHT PAST SURGICAL HISTORY OF Left laser eye surgery for glaucoma SIGMOIDOSCOPY FLX DX W/COLLJ SPEC BR/WA IF PFRMD 06/23/2007 TOTAL ABDOMINAL HYSTERECT W/WO RMVL TUBE OVARY 1988 RUBI/BSO for fibroids and bleeding TOTAL KNEE REPLACEMENT Left 03/28/2020 VAGINAL HYSTERECTOMY Family History FAMILY HISTORY Problem Relation Age of Onset Heart Mother CHF Cancer Father prostate Psychiatry Father Cancer Brother No Known Problems Daughter No Known Problems Daughter No Known Problems Daughter Breast Cancer Maternal Aunt Patient Allergies ALLERGIES Allergen Reactions Caffeine Codeine Darvocet A500 [Prop* Vomiting Demerol [Meperidine* Vomiting Entex [Phenylephrin* Ephedrine Other: See Comments Heart palpitations Griseofulvin Milk Containing Pro* Intolerance Nasal stuffiness Tramadol Other: See Comments Nausea, vomiting, dry heaves after carpal tunnel surgery Vicodin [Hydrocodon* Itching Zoloft [Sertraline * Mental Status Change Increased anxiety and feeling of depression. Started in 2005, not noted then Current Medications Current Outpatient Medications on File Prior to Visit Medication Sig benzonatate (TESSALON PERLE) 100 mg capsule Take 2 capsules by mouth three times a day as needed. hydrocortisone (ANUSOL-HC) 25 mg suppository 1 Suppository by RECTAL route two times a day as needed (hemorrhoids/rectal pain). donepezil (ARICEPT) 5 mg tablet Take 1 tablet by mouth daily at bedtime. Azelaic Acid (FINACEA) 15 % gel Apply to affected area once daily. losartan (COZAAR) 25 mg tablet TAKE 1 TABLET BY MOUTH EVERY DAY amitriptyline (ELAVIL) 10 mg tablet Take 1 tablet by mouth daily at bedtime. loratadine (CLARITIN) 10 mg tablet Take 1 tablet by mouth once daily. meloxicam (MOBIC) 15 mg tablet Take 1 tablet by mouth once daily. methotrexate 2.5 mg tablet Take 6 tablets once weekly,on fluorometholone (FML LIQUID FILM) 0.1 % ophthalmic suspension Use 1 Drop in both eyes once daily. FOLIC ACID ORAL Take by mouth. FLUoxetine (PROZAC) 10 mg capsule Take 1 capsule by mouth once daily. CALCIUM/MAGNESIUM (CALCIUM AND MAGNESIUM ORAL) Take 3 capsules by mouth twice daily. (Patient not taking: Reported on 07/04/2023) Cholecalciferol, Vitamin D3, 5,000 unit tab Take 5,000 Units by mouth once daily. (Patient not taking: Reported on 06/12/2023) wbiym-[id number]-vgz-epa-fish oil-D3 350 mg-400 mg- 1,000 unit cap Take by mouth. Takes a total of 5,000 daily (Patient not taking: Reported on 06/12/2023) Red Yeast Rice Extract 600 mg ORAL Cap Take by mouth. Take one(1) tablet two(2) times daily. (Patient not taking: Reported on 06/12/2023) Lecithin 400 mg ORAL Cap Take one(1) tablet daily. (Patient not taking: Reported on 07/04/2023) Glutamine (L-GLUTAMINE) 500 mg ORAL Cap Take one(1) tablet daily. (Patient not taking: Reported on 06/12/2023) VITAMIN C 500 MG ORAL TAB Take one(1) tablet daily. (Patient not taking: Reported on 06/12/2023) No current facility-administered medications on file prior to visit. Social History Social History Tobacco Use Smoking status: Never Smokeless tobacco: Never Vaping Use Vaping Use: Never used Substance Use Topics Alcohol use: No Drug use: No Review of Symptoms REVIEW OF SYSTEMS See HPI, otherwise negative EXAM: BP 122/76 (BP Site: Left Arm, BP Position: Sitting, BP Cuff Size: Regular Adult) Pulse (!) 49 Resp 16 Wt 55.2 kg (121 lb 12.8 oz) SpO2 98% BMI 25.46 kg/m General Appearance: Well appearing, alert, in no acute distress, well-hydrated, well nourished.. Lungs: Lungs clear to auscultation. No wheezing, rhonchi, rales.. Heart: RRR without murmur, gallop, or rubs. No ectopy. Abdomen: Normal abdominal exam, Abdomen soft, non-tender. Bowel sounds normal. No masses, organomegaly. Psychiatric: pleasant, cooperative, occasionally repetitive speech. Health Maintenance List Covid-19 Vaccine(1) Never done RSV Vaccine(1 - 1-dose 60+ series) due on 01/22/2024 Shingrix Vaccine(1 of 2) due on 01/22/2024 Pneumococcal Vaccine: 65+(1 of 2 - PCV) due on 01/22/2024 Influenza Vaccine(Season Ended) due on 11/03/2023 Diabetes Screening due on 05/07/2026 DTaP,Tdap,Td Vaccine(4 - Td or Tdap) due on 11/23/2032 Bone Density Screening Completed Spirometry Completed Colorectal Cancer Screening Discontinued Advance Directive Discussion Discontinued Data reviewed Previous records, office notes ASSESSMENT/PLAN: 1. JOSHUA (generalized anxiety disorder) - ICD9: 300.02, ICD10: F41.1 (primary diagnosis) Suspect cause of intermittent abdominal discomfort, pain. At this time declines therapy/counseling, declines SSRI type medication. Over the next month will keep a record of the pain as well as recent foods she has eaten and any recent stressors in her day to day activity. Follow up in 1 month. 2. Stress - ICD9: V62.89, ICD10: F43.9 Suspect cause of intermittent abdominal discomfort, pain. At this time declines therapy/counseling, declines SSRI type medication. Over the next month will keep a record of the pain as well as recent foods she has eaten and any recent stressors in her day to day activity. Follow up in 1 month. 3. Abdominal discomfort - ICD9: 789.00, ICD10: R10.9 Suspect cause of intermittent abdominal discomfort, pain. At this time declines therapy/counseling, declines SSRI type medication. Over the next month will keep a record of the pain as well as recent foods she has eaten and any recent stressors in her day to day activity. Follow up in 1 month. 4. RUQ abdominal pain - ICD9: 789.01, ICD10: R10.11 Suspect cause of intermittent abdominal discomfort, pain. At this time declines therapy/counseling, declines SSRI type medication. Over the next month will keep a record of the pain as well as recent foods she has eaten and any recent stressors in her day to day activity. Follow up in 1 month. Angeline Monterroso APRN.KEIVN documented in this encounter [facility] 07-08-2023 Telephone encounter Note Pt notified. Ramona Cantrell MA [facility] 07-08-2023 Miscellaneous Notes Pt notified. Ramona Cantrell MA I sent over three days more. If not improving follow-up with PCP team Chapis Valle APRN.KEVIN Pt called and is notified of providers message. Pt voices understanding, but states she doesn't have any pills left. She states she doesn't believe in taking her pills more than they are prescribed. I told her even if she took one on 07/04/23 she should still have 1 more for the morning of 07/09/23. The Pt states she didn't count them when she got them, but she doesn't have any left. She states she doesn't remember if she took 2 on 07/04/23. Please call and advise. Nell Barnett, RN She should have had enough for 5 days- meaning she still has a day left? Chapis Valle APRN.CNP Pt notified. She finished antibiotic she says and still having urinary frequency. No pain with urination, no visible blood in urine. No back pain, abdominal, nausea or vomiting. No fevers. Anything further recommendations. Ramona Cantrell MA ----- Message from Chapis Valle APRN.CNP sent at 07/08/2023 6:50 AM EDT ----- Urine culture shows infection with E. Coli. The antibiotic she is on will work for this bacteria. Complete entire course. Chapis Valle APRN.CNP documented in this encounter [facility] 07-08-2023 Telephone encounter Note I sent over three days more. If not improving follow-up with PCP team Chapis Valle APRN.CNP [facility] 07-08-2023 Telephone encounter Note Pt called and is notified of providers message. Pt voices understanding, but states she doesn't have any pills left. She states she doesn't believe in taking her pills more than they are prescribed. I told her even if she took one on 07/04/23 she should still have 1 more for the morning of 07/09/23. The Pt states she didn't count them when she got them, but she doesn't have any left. She states she doesn't remember if she took 2 on 07/04/23. Please call and advise. Nell Barnett RN T [facility] 07-08-2023 Telephone encounter Note She should have had enough for 5 days- meaning she still has a day left? Chapis Valle APRN.CNP [facility] 07-08-2023 Telephone encounter Note Pt notified. She finished antibiotic she says and still having urinary frequency. No pain with urination, no visible blood in urine. No back pain, abdominal, nausea or vomiting. No fevers. Anything further recommendations. Ramona Cantrell MA T [facility] 07-08-2023 Telephone encounter Note ----- Message from Chapis Valle APRN.CNP sent at 07/08/2023 6:50 AM EDT ----- Urine culture shows infection with E. Coli. The antibiotic she is on will work for this bacteria. Complete entire course. Chapis Valle APRN.CNP [facility] 07-04-2023 History of Present illness Narrative 07/04/2023 Patient presents with: UTI: Frequency and urgency x 1 day, no pain or burning SUBJECTIVE: This is a 83 year old that is here today for Above Complaints. For the last day has noted some urinary urgency and frequency.Denies hx of kidney stones, fevers, chills, abdominal pain, back pain, nausea constipation, vomiting, urinary frequency, dysuria or hematuri Latest Ref Rng 07/04/2023 GLUCOSE UA (POCT) Negative mg/dL Negative BILIRUBIN UA (POCT) Negative Negative KETONE UA (POCT) Negative mg/dL Negative SPECIFIC GRAVITY UA (POCT) 1.005 - 1.030 1.010 HEMOGLOBIN/BLOOD UA (POCT) Negative Negative PH UA (POCT) 4.5 - 8.0 6.0 PROTEIN UA (POCT) Negative mg/dL Negative UROBILINOGEN UA (POCT) Normal E.U./dL 0.2 NITRITE UA (POCT) Negative Negative LEUKOCYTES UA (POCT) Negative Small ! COLOR UA (POCT) Yellow CLARITY UA (POCT) Clear Legend: ! 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 Dementia (HCC) Diverticulosis of colon (without mention of hemorrhage) Dry cough 05/23/2016 Ganglion of joint 07/16/2005 Generalized osteoarthrosis, unspecified site Hemorrhage of gastrointestinal tract, unspecified Hemorrhage of rectum and anus Hypertension Infection of left eye Irritable bowel syndrome Osteomalacia, unspecified Other and unspecified hyperlipidemia Pneumonia, organism unspecified(486) PONV (postoperative nausea and vomiting) Psoriatic arthritis (HCC) Rectocele 01/05/2011 Skin tear of lower leg without complication 05/23/2016 Sprain of unspecified site of sacroiliac region Unspecified constipation Urge incontinence mild ALLERGIES Caffeine, Codeine, Darvocet A500 [Propoxyphene N-Acetaminophen], Demerol [Meperidine (Pf)], Entex [Phenylephrine-Guaifenesin], Ephedrine, Griseofulvin, Milk Containing Products (Dairy), Tramadol, Vicodin [Hydrocodone-Acetaminophen], and Zoloft [Sertraline Hcl] MEDICATIONS Current Outpatient Medications Medication Sig benzonatate (TESSALON PERLE) 100 mg capsule Take 2 capsules by mouth three times a day as needed. hydrocortisone (ANUSOL-HC) 25 mg suppository 1 Suppository by RECTAL route two times a day as needed (hemorrhoids/rectal pain). FLUoxetine (PROZAC) 10 mg capsule Take 1 capsule by mouth once daily. donepezil (ARICEPT) 5 mg tablet Take 1 tablet by mouth daily at bedtime. Azelaic Acid (FINACEA) 15 % gel Apply to affected area once daily. losartan (COZAAR) 25 mg tablet TAKE 1 TABLET BY MOUTH EVERY DAY amitriptyline (ELAVIL) 10 mg tablet Take 1 tablet by mouth daily at bedtime. loratadine (CLARITIN) 10 mg tablet Take 1 tablet by mouth once daily. meloxicam (MOBIC) 15 mg tablet Take 1 tablet by mouth once daily. methotrexate 2.5 mg tablet Take 6 tablets once weekly,on fluorometholone (FML LIQUID FILM) 0.1 % ophthalmic suspension Use 1 Drop in both eyes once daily. CALCIUM/MAGNESIUM (CALCIUM AND MAGNESIUM ORAL) Take 3 capsules by mouth twice daily. FOLIC ACID ORAL Take by mouth. Cholecalciferol, Vitamin D3, 5,000 unit tab Take 5,000 Units by mouth once daily. (Patient not taking: Reported on 06/12/2023) aenvc-6c-dxx-epa-fish oil-D3 350 mg-400 mg- 1,000 unit cap Take by mouth. Takes a total of 5,000 daily (Patient not taking: Reported on 06/12/2023) Red Yeast Rice Extract 600 mg ORAL Cap Take by mouth. Take one(1) tablet two(2) times daily. (Patient not taking: Reported on 06/12/2023) Lecithin 400 mg ORAL Cap Take one(1) tablet daily. Glutamine (L-GLUTAMINE) 500 mg ORAL Cap Take one(1) tablet daily. (Patient not taking: Reported on 06/12/2023) VITAMIN C 500 MG ORAL TAB Take one(1) tablet daily. (Patient not taking: Reported on 06/12/2023) No current facility-administered medications for this visit. Medications and allergies reviewed by this provider. SOCIAL HISTORY Social History Tobacco Use Smoking status: Never Smokeless tobacco: Never Vaping Use Vaping Use: Never used Substance Use Topics Alcohol use: No Drug use: No REVIEW OF SYSTEMS All other reviewed and negative other than HPI. OBJECTIVE: BP 118/64 Pulse (!) 54 Temp 36.9 C (98.5 F) Resp 16 Wt 54 kg (119 lb) SpO2 98% BMI 24.87 kg/m . Vital signs reviewed by this provider. APPEARANCE Well appearing, alert, in no acute distress, well-hydrated, well nourished. EYES PERRLA, conjunctiva and sclera normal. HEART RRR with normal S1 and S2, no murmurs, no gallops, no JVD appreciated LUNG clear to auscultation. No wheezes, rhonchi or rales BACK: No CVA tenderness ABDOMEN bowel sounds normoactive, no bruits, soft, non-tender, non-distended SKIN Skin color, texture, turgor normal, no suspicious rashes or lesions to exposed skin Covid-19 Vaccine(1) Never done RSV Vaccine(1 - 1-dose 60+ series) due on 01/22/2024 Shingrix Vaccine(1 of 2) due on 01/22/2024 Pneumococcal Vaccine: 65+(1 of 2 - PCV) due on 01/22/2024 Influenza Vaccine(Season Ended) due on 11/03/2023 Diabetes Screening due on 05/07/2026 DTaP,Tdap,Td Vaccine(4 - Td or Tdap) due on 11/23/2032 Bone Density Screening Completed Spirometry Completed Colorectal Cancer Screening Discontinued Advance Directive Discussion Discontinued ASSESSMENT/PLAN: 1. UTI symptoms - ICD9: 788.99, ICD10: R39.9 - no red flag symptoms or exam findings - red flag symptoms discussed, verbalizes understanding - will start antibiotic since getting close to weekend and culture results may take time - push fluids - UA DIP, URINE (POC) - URINE CULTURE - NITROFURANTOIN MONOHYDRATE & MACROCRYSTAL 100 MG ORAL CAP - follow-up if symptoms fail to improvement to ER with red leg symptoms Chapis Valle APRN.SHIP KEEPER Prescription instructions reviewed with patient as applicable. Patient advised if symptoms do not improve or if symptoms worsen sooner, to contact their primary care physician. Potential red flag symptoms discussed with the patient. Reviewed appropriate action plan to take if red flag symptoms occur. Patient agreeable to treatment plan. Medical Decision Making: Problems: Low: Acute, uncomplicated illness or injury Data: Unique test(s) ordered: 2 Risk: Moderate: Drug management Medical Decision Making Level: 3 - Low documented in this encounter [facility] 07-04-2023 Telephone encounter Note Patient calls for urinary symptoms. Nurse triage completed. Protocol recommends see provider within 24 hours. Patient requests appointment today. Declines EC. Care advice reviewed. Reason for Disposition Age > 50 years Answer Assessment - Initial Assessment Questions 1. SEVERITY: - MODERATE (4-7): interferes with normal activities 2. FREQUENCY: every 15 minutes 3. PATTERN: every time patient urinates 4. ONSET:this morning 5. FEVER: No 6. PAST UTI: Yes frequest UTI and need for antibiotic 7. CAUSE: Patient reports UTI. 8. OTHER SYMPTOMS: Urgency, frequency, painful/burning urination, f. No blood in urine, flank pain, genital sores, urgency, vaginal discharge. Protocols used: Urination Pain - [id number] [facility] 07-04-2023 Miscellaneous Notes Patient calls for urinary symptoms. Nurse triage completed. Protocol recommends see provider within 24 hours. Patient requests appointment today. Declines EC. Care advice reviewed. Reason for Disposition Age > 50 years Answer Assessment - Initial Assessment Questions 1. SEVERITY: - MODERATE (4-7): interferes with normal activities 2. FREQUENCY: every 15 minutes 3. PATTERN: every time patient urinates 4. ONSET:this morning 5. FEVER: No 6. PAST UTI: Yes frequest UTI and need for antibiotic 7. CAUSE: Patient reports UTI. 8. OTHER SYMPTOMS: Urgency, frequency, painful/burning urination, f. No blood in urine, flank pain, genital sores, urgency, vaginal discharge. Protocols used: Urination Pain - [id number] documented in this encounter [facility] 07-01-2023 Telephone encounter Note Patient calls and notified of results and providers instructions. Patient verbalizes understanding and reports she is feeling much better. Cough is almost gone. Armida Warren RN [facility] 07-01-2023 Miscellaneous Notes Patient calls and notified of results and providers instructions. Patient verbalizes understanding and reports she is feeling much better. Cough is almost gone. Armida Warren, RN Message let to return call. Please let Anaya know that her chest xray looks normal. Angeline Monterroso APRN.KEVIN documented in this encounter [facility] 07-01-2023 Telephone encounter Note Message let to return call. [facility] Work Phone: 06-28-2023 Telephone encounter Note Please let Anaya know that her chest xray looks normal. Angeline Monterroso APRN.KEVIN [facility] 06-28-2023 Telephone encounter Note Pt informed, verbalized understanding. Ivette Valenzuela MA [facility] 06-28-2023 Miscellaneous Notes Pt informed, verbalized understanding. Ivette Valenzuela MA Please let her know that her swab test is negative for COVID/influenza/RSV. Angeline Monterroso APRN.CNP documented in this encounter [facility] 06-28-2023 Telephone encounter Note Please let her know that her swab test is negative for COVID/influenza/RSV. Angeline Monterroso APRN.CNP [facility] 06-27-2023 History of Present illness Narrative Radiology Service Progress Note PATIENT NAME: Anaya Wilson DATE OF SERVICE: June 27, 2023 TIME: 3:12 PM PATIENT IDENTITY VERIFICATION COMPLETED USING TWO (2) IDENTIFIERS: Name and Date of confirmed by patient verbally. FALL SCREENING: Has the patient had 2 falls in the last year or 1 fall with injury or currently using an Ambulatory Assistive Device (Walker, Cane, Wheelchair, Crutches, etc.)? No PATIENT GENDER DATA: Female. status: : No status: NO. PATIENT RELEVANT IMPLANT DATA REVIEWED: Not Applicable PATIENT PRESENTS WITH AN IMPLANTABLE OR ATTACHED PANTOGRAPH I ENGRAVER: No RADIOLOGY DEPARTMENT: General X-ray: Exam(s) Completed: Chest X-Ray PERIPHERAL IV DATA: Not applicable SIGNED BY: RT Boy(R) June 27, 2023 3:12 PM documented in this encounter [facility] 06-27-2023 History of Present illness Narrative Chief Complaint Patient presents with: Cough: X 5 days, seems to be worsening, bumps on aretha legs x 2 weeks ago. HPI Anaya Wilson is a 83 year old female who presents here today for Above Complaints. Cough x5 days. Can be raspy at times. Worse at nights and in the mornings. Is dry cough. Denies sore throat, fever, ear pain. No known ill contacts. Denies SOB, CP. Has not taken any medications or any interventions at home for this. Past medical history, appointments, medications, allergies reviewed. 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 Dementia (HCC) Diverticulosis of colon (without mention of hemorrhage) Dry cough 05/23/2016 Ganglion of joint 07/16/2005 Generalized osteoarthrosis, unspecified site Hemorrhage of gastrointestinal tract, unspecified Hemorrhage of rectum and anus Hypertension Infection of left eye Irritable bowel syndrome Osteomalacia, unspecified Other and unspecified hyperlipidemia Pneumonia, organism unspecified(486) PONV (postoperative nausea and vomiting) Psoriatic arthritis (HCC) Rectocele 01/05/2011 Skin tear of lower leg without complication 05/23/2016 Sprain of unspecified site of sacroiliac region Unspecified constipation Urge incontinence mild Previous Surgical History PAST SURGICAL HISTORY Procedure Laterality Date ARTHRP KNE CONDYLE&PLATU MEDIAL&LAT COMPARTMENTS Right 06/03/2017 Knee replacement, total COLONOSCOPY 05/10/2022 rectal mass COLONOSCOPY FLX DX W/COLLJ SPEC WHEN PFRMD 04/20/2002 Colonoscopy COLONOSCOPY FLX DX W/COLLJ SPEC WHEN PFRMD 07/25/2011 Colonoscopy EYE SURGERY HX JOINT REPLACEMENT HX NEUROPLASTY &/TRANSPOS MEDIAN NRV CARPAL TUNNE 1979 Carpal tunnel decomp b/l hands NEUROPLASTY &/TRANSPOS MEDIAN NRV CARPAL TUNNE 12/18/2011 RIGHT PAST SURGICAL HISTORY OF Left laser eye surgery for glaucoma SIGMOIDOSCOPY FLX DX W/COLLJ SPEC BR/WA IF PFRMD 06/23/2007 TOTAL ABDOMINAL HYSTERECT W/WO RMVL TUBE OVARY 1988 RUBI/BSO for fibroids and bleeding TOTAL KNEE REPLACEMENT Left 03/28/2020 VAGINAL HYSTERECTOMY Family History FAMILY HISTORY Problem Relation Age of Onset Heart Mother CHF Cancer Father prostate Psychiatry Father Cancer Brother No Known Problems Daughter No Known Problems Daughter No Known Problems Daughter Breast Cancer Maternal Aunt Patient Allergies ALLERGIES Allergen Reactions Caffeine Codeine Darvocet A500 [Prop* Vomiting Demerol [Meperidine* Vomiting Entex [Phenylephrin* Ephedrine Other: See Comments Heart palpitations Griseofulvin Milk Containing Pro* Intolerance Nasal stuffiness Tramadol Other: See Comments Nausea, vomiting, dry heaves after carpal tunnel surgery Vicodin [Hydrocodon* Itching Zoloft [Sertraline * Mental Status Change Increased anxiety and feeling of depression. Started in 2005, not noted then Current Medications Current Outpatient Medications on File Prior to Visit Medication Sig hydrocortisone (ANUSOL-HC) 25 mg suppository 1 Suppository by RECTAL route two times a day as needed (hemorrhoids/rectal pain). donepezil (ARICEPT) 5 mg tablet Take 1 tablet by mouth daily at bedtime. Azelaic Acid (FINACEA) 15 % gel Apply to affected area once daily. losartan (COZAAR) 25 mg tablet TAKE 1 TABLET BY MOUTH EVERY DAY amitriptyline (ELAVIL) 10 mg tablet Take 1 tablet by mouth daily at bedtime. loratadine (CLARITIN) 10 mg tablet Take 1 tablet by mouth once daily. meloxicam (MOBIC) 15 mg tablet Take 1 tablet by mouth once daily. methotrexate 2.5 mg tablet Take 6 tablets once weekly,on fluorometholone (FML LIQUID FILM) 0.1 % ophthalmic suspension Use 1 Drop in both eyes once daily. CALCIUM/MAGNESIUM (CALCIUM AND MAGNESIUM ORAL) Take 3 capsules by mouth twice daily. FOLIC ACID ORAL Take by mouth. Lecithin 400 mg ORAL Cap Take one(1) tablet daily. FLUoxetine (PROZAC) 10 mg capsule Take 1 capsule by mouth once daily. methotrexate 2.5 mg tablet 2.5 mg tablet, takes 7 tablets every Saturday. Hold Saturday8 dose as took dose early on October 05, 2022. To resume weekly dosage on Sunday October 16, 2022. benzonatate (TESSALON PERLE) 100 mg capsule Take 2 capsules by mouth three times daily as needed. (Patient not taking: Reported on 06/27/2023) polyethylene glycol 3350 (MIRALAX ORAL) Take 1 Cap-Full by mouth once daily as needed. (Patient not taking: Reported on 06/12/2023) multivitamin with minerals (VISION/OPTIGEN) tablet Take 1 tablet by mouth once daily. (Patient not taking: Reported on 06/12/2023) BIOTIN ORAL Take by mouth once daily. (Patient not taking: Reported on 06/12/2023) MULTIVITAMIN ORAL Take by mouth once daily. Gummies (Patient not taking: Reported on 06/12/2023) Cholecalciferol, Vitamin D3, 5,000 unit tab Take 5,000 Units by mouth once daily. (Patient not taking: Reported on 06/12/2023) xuphq-7r-lni-epa-fish oil-D3 350 mg-400 mg- 1,000 unit cap Take by mouth. Takes a total of 5,000 daily (Patient not taking: Reported on 06/12/2023) Red Yeast Rice Extract 600 mg ORAL Cap Take by mouth. Take one(1) tablet two(2) times daily. (Patient not taking: Reported on 06/12/2023) Glutamine (L-GLUTAMINE) 500 mg ORAL Cap Take one(1) tablet daily. (Patient not taking: Reported on 06/12/2023) VITAMIN C 500 MG ORAL TAB Take one(1) tablet daily. (Patient not taking: Reported on 06/12/2023) No current facility-administered medications on file prior to visit. Social History Social History Tobacco Use Smoking status: Never Smokeless tobacco: Never Vaping Use Vaping Use: Never used Substance Use Topics Alcohol use: No Drug use: No Review of Symptoms REVIEW OF SYSTEMS See HPI, otherwise negative EXAM: BP 108/64 (BP Site: Left Arm, BP Position: Sitting, BP Cuff Size: Regular Adult) Pulse (!) 56 Temp 36.8 C (98.2 F) Resp 16 Wt 53.8 kg (118 lb 9.6 oz) SpO2 98% BMI 24.79 kg/m General Appearance: Well appearing, alert, in no acute distress, well-hydrated, well nourished.. Lungs: mildly diminished BLL. Heart: RRR without murmur, gallop, or rubs. No ectopy. Psychiatric pleasant, cooperative. Health Maintenance List Covid-19 Vaccine(1) Never done RSV Vaccine(1 - 1-dose 60+ series) due on 01/22/2024 Shingrix Vaccine(1 of 2) due on 01/22/2024 Pneumococcal Vaccine: 65+(1 of 2 - PCV) due on 01/22/2024 Influenza Vaccine(Season Ended) due on 11/03/2023 Diabetes Screening due on 05/07/2026 DTaP,Tdap,Td Vaccine(4 - Td or Tdap) due on 11/23/2032 Bone Density Screening Completed Spirometry Completed Colorectal Cancer Screening Discontinued Advance Directive Discussion Discontinued Data reviewed Previous records, office notes ASSESSMENT/PLAN: 1. Persistent cough - ICD9: 786.2, ICD10: R05.3 (primary diagnosis) Supportive care. - XR CHEST 2V FRONTAL/LAT - BENZONATATE 100 MG CAPSULE - COVID & INFLUENZA A/B & RSV NAAT, ROUTINE 2. Acute cough - ICD9: 786.2, ICD10: R05.1 Supportive care. - XR CHEST 2V FRONTAL/LAT - BENZONATATE 100 MG CAPSULE - COVID & INFLUENZA A/B & RSV NAAT, ROUTINE 3. Decreased lung sounds - ICD9: 786.7, ICD10: R06.89 Supportive care. - XR CHEST 2V FRONTAL/LAT - BENZONATATE 100 MG CAPSULE - COVID & INFLUENZA A/B & RSV NAAT, ROUTINE Angeline Monterroso APRN.SHIP KEEPER documented in this encounter [facility] 06-27-2023 Telephone encounter Note Opened in Error. [facility] 06-27-2023 Miscellaneous Notes Opened in Error. documented in this encounter [facility] 06-27-2023 Telephone encounter Note Patient calls for cough with yellowish-brownish sputum/chunks. Patient reports some SOB with exertion. Nurse triage completed. Protocol recommends see provider within 4 hours. Patient not able to come in until after 2. Scheduled for 220 pm per patient request. Care advice reviewed. Patient verbalizes understanding. Red flag symptoms reviewed. Reason for Disposition [1] MILD difficulty breathing (e.g., minimal/no SOB at rest, SOB with walking, pulse <100) AND [2] still present when not coughing Answer Assessment - Initial Assessment Questions 1. ONSET: Patient reports cough has been on-going for quite some time. When she was on lisinopril and changed to losartan cough got worse. The cough now is different. She is now coughing up chunks. 2. SEVERITY:Bothersome. 3. SPUTUM: Yellow-Brownish 4. HEMOPTYSIS: No 5. DIFFICULTY BREATHING:- MILD: No SOB at rest, mild SOB with walking, speaks normally in sentences, can lie down, no retractions, pulse < 100. 6. FEVER: No 7. CARDIAC HISTORY: No history of heart attack, congestive heart failure 8. LUNG HISTORY:No history of pulmonary embolus, asthma, emphysema 9. PE RISK FACTORS: No recent major surgery, recent prolonged travel, bedridden 10. OTHER SYMPTOMS: No runny nose, wheezing, or chest pain. 11. : No 12. TRAVEL: No Protocols used: Cough - Acute [id number] [facility] 06-27-2023 Miscellaneous Notes Patient calls for cough with yellowish-brownish sputum/chunks. Patient reports some SOB with exertion. Nurse triage completed. Protocol recommends see provider within 4 hours. Patient not able to come in until after 2. Scheduled for 220 pm per patient request. Care advice reviewed. Patient verbalizes understanding. Red flag symptoms reviewed. Reason for Disposition [1] MILD difficulty breathing (e.g., minimal/no SOB at rest, SOB with walking, pulse <100) AND [2] still present when not coughing Answer Assessment - Initial Assessment Questions 1. ONSET: Patient reports cough has been on-going for quite some time. When she was on lisinopril and changed to losartan cough got worse. The cough now is different. She is now coughing up chunks. 2. SEVERITY:Bothersome. 3. SPUTUM: Yellow-Brownish 4. HEMOPTYSIS: No 5. DIFFICULTY BREATHING:- MILD: No SOB at rest, mild SOB with walking, speaks normally in sentences, can lie down, no retractions, pulse < 100. 6. FEVER: No 7. CARDIAC HISTORY: No history of heart attack, congestive heart failure 8. LUNG HISTORY:No history of pulmonary embolus, asthma, emphysema 9. PE RISK FACTORS: No recent major surgery, recent prolonged travel, bedridden 10. OTHER SYMPTOMS: No runny nose, wheezing, or chest pain. 11. : No 12. TRAVEL: No Protocols used: Cough - Acute [id number] Pt calls states was on lisinopril had a little cough and was switched to losartan. She states the cough is much worse on the losartan. This nurse explains not usually a side effect from losartan is a known one from lisinopril. Explained would send a note to doctor. documented in this encounter [facility] 06-26-2023 Telephone encounter Note Pt calls states was on lisinopril had a little cough and was switched to losartan. She states the cough is much worse on the losartan. This nurse explains not usually a side effect from losartan is a known one from lisinopril. Explained would send a note to doctor. [facility] 06-12-2023 History of Present illness Narrative Chief Complaint Patient presents with: Follow Up: Abd pain FRANCES Wilson is a 83 year old female who presents here today for Above Complaints. Per appointment with myself on 05/08/2023: FRANCES Wilson is a 83 year old female who presents here today for Above Complaints. Currently: Pain in mid upper abdomen, moves to each side. Is achy, feels a little bloated. Was in ER at [place] this morning and told she had pancreatitis. Just a little bit of nausea, no vomiting. Prior to this episode last night, ate a sandwich and strawberry milkshake-possibly hurt a little but prior to this. Started to hurt about 2:30 this morning, went to the ER around 4 this morning. ASSESSMENT/PLAN: 1. Elevated lipase - ICD9: 790.5, ICD10: R74.8 (primary diagnosis) Concern for gallbladder etiology. Discussed appropriate diet of liquids and advance to softs and gradually to regular diet-no spicy or acidic foods. Consider moving her pancreas MRI up, will depend on results of RUQ ultrasound today. - US ABD RIGHT UPPER QUADRANT - KETOROLAC 60 MG/2 ML INTRAMUSCULAR SOLUTION 2. Bloating - ICD9: 787.3, ICD10: R14.0 Concern for gallbladder etiology. Discussed appropriate diet of liquids and advance to softs and gradually to regular diet-no spicy or acidic foods. Consider moving her pancreas MRI up, will depend on results of RUQ ultrasound today. - US ABD RIGHT UPPER QUADRANT - KETOROLAC 60 MG/2 ML INTRAMUSCULAR SOLUTION 3. Upper abdominal pain - ICD9: 789.09, ICD10: R10.10 Concern for gallbladder etiology. Discussed appropriate diet of liquids and advance to softs and gradually to regular diet-no spicy or acidic foods. Consider moving her pancreas MRI up, will depend on results of RUQ ultrasound today. - US ABD RIGHT UPPER QUADRANT - KETOROLAC 60 MG/2 ML INTRAMUSCULAR SOLUTION 4. Nausea - ICD9: 787.02, ICD10: R11.0 Concern for gallbladder etiology. Discussed appropriate diet of liquids and advance to softs and gradually to regular diet-no spicy or acidic foods. Consider moving her pancreas MRI up, will depend on results of RUQ ultrasound today. - US ABD RIGHT UPPER QUADRANT - KETOROLAC 60 MG/2 ML INTRAMUSCULAR SOLUTION Angeline Monterroso APRN.SHIP KEEPER Currently: Abdominal pain-if pigs out with eating gets uncomfortable in upper and mid abdomen. No bloating. Occasional nausea, cannot pinpoint anything that triggers this. Appetite is good. Happens a couple times weekly, but overall happens a couple times weekly. Overall feels much better. Past medical history, appointments, medications, allergies reviewed. 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 Dementia (HCC) Diverticulosis of colon (without mention of hemorrhage) Dry cough 05/23/2016 Ganglion of joint 07/16/2005 Generalized osteoarthrosis, unspecified site Hemorrhage of gastrointestinal tract, unspecified Hemorrhage of rectum and anus Hypertension Infection of left eye Irritable bowel syndrome Osteomalacia, unspecified Other and unspecified hyperlipidemia Pneumonia, organism unspecified(486) PONV (postoperative nausea and vomiting) Psoriatic arthritis (HCC) Rectocele 01/05/2011 Skin tear of lower leg without complication 05/23/2016 Sprain of unspecified site of sacroiliac region Unspecified constipation Urge incontinence mild Previous Surgical History PAST SURGICAL HISTORY Procedure Laterality Date ARTHRP KNE CONDYLE&PLATU MEDIAL&LAT COMPARTMENTS Right 06/03/2017 Knee replacement, total COLONOSCOPY 05/10/2022 rectal mass COLONOSCOPY FLX DX W/COLLJ SPEC WHEN PFRMD 04/20/2002 Colonoscopy COLONOSCOPY FLX DX W/COLLJ SPEC WHEN PFRMD 07/25/2011 Colonoscopy EYE SURGERY HX JOINT REPLACEMENT HX NEUROPLASTY &/TRANSPOS MEDIAN NRV CARPAL TUNNE 1979 Carpal tunnel decomp b/l hands NEUROPLASTY &/TRANSPOS MEDIAN NRV CARPAL TUNNE 12/18/2011 RIGHT PAST SURGICAL HISTORY OF Left laser eye surgery for glaucoma SIGMOIDOSCOPY FLX DX W/COLLJ SPEC BR/WA IF PFRMD 06/23/2007 TOTAL ABDOMINAL HYSTERECT W/WO RMVL TUBE OVARY 1988 RUBI/BSO for fibroids and bleeding TOTAL KNEE REPLACEMENT Left 03/28/2020 VAGINAL HYSTERECTOMY Family History FAMILY HISTORY Problem Relation Age of Onset Heart Mother CHF Cancer Father prostate Psychiatry Father Cancer Brother No Known Problems Daughter No Known Problems Daughter No Known Problems Daughter Breast Cancer Maternal Aunt Patient Allergies ALLERGIES Allergen Reactions Caffeine Codeine Darvocet A500 [Prop* Vomiting Demerol [Meperidine* Vomiting Entex [Phenylephrin* Ephedrine Other: See Comments Heart palpitations Griseofulvin Milk Containing Pro* Intolerance Nasal stuffiness Tramadol Other: See Comments Nausea, vomiting, dry heaves after carpal tunnel surgery Vicodin [Hydrocodon* Itching Zoloft [Sertraline * Mental Status Change Increased anxiety and feeling of depression. Started in 2005, not noted then Current Medications Current Outpatient Medications on File Prior to Visit Medication Sig hydrocortisone (ANUSOL-HC) 25 mg suppository 1 Suppository by RECTAL route two times a day as needed (hemorrhoids/rectal pain). donepezil (ARICEPT) 5 mg tablet Take 1 tablet by mouth daily at bedtime. Azelaic Acid (FINACEA) 15 % gel Apply to affected area once daily. losartan (COZAAR) 25 mg tablet TAKE 1 TABLET BY MOUTH EVERY DAY amitriptyline (ELAVIL) 10 mg tablet Take 1 tablet by mouth daily at bedtime. benzonatate (TESSALON PERLE) 100 mg capsule Take 2 capsules by mouth three times daily as needed. loratadine (CLARITIN) 10 mg tablet Take 1 tablet by mouth once daily. meloxicam (MOBIC) 15 mg tablet Take 1 tablet by mouth once daily. methotrexate 2.5 mg tablet Take 6 tablets once weekly,on fluorometholone (FML LIQUID FILM) 0.1 % ophthalmic suspension Use 1 Drop in both eyes once daily. CALCIUM/MAGNESIUM (CALCIUM AND MAGNESIUM ORAL) Take 3 capsules by mouth twice daily. FOLIC ACID ORAL Take by mouth. Lecithin 400 mg ORAL Cap Take one(1) tablet daily. FLUoxetine (PROZAC) 10 mg capsule Take 1 capsule by mouth once daily. methotrexate 2.5 mg tablet 2.5 mg tablet, takes 7 tablets every Saturday. Hold Saturday8 dose as took dose early on October 05, 2022. To resume weekly dosage on Sunday October 16, 2022. polyethylene glycol 3350 (MIRALAX ORAL) Take 1 Cap-Full by mouth once daily as needed. (Patient not taking: Reported on 06/12/2023) multivitamin with minerals (VISION/OPTIGEN) tablet Take 1 tablet by mouth once daily. (Patient not taking: Reported on 06/12/2023) BIOTIN ORAL Take by mouth once daily. (Patient not taking: Reported on 06/12/2023) MULTIVITAMIN ORAL Take by mouth once daily. Gummies (Patient not taking: Reported on 06/12/2023) Cholecalciferol, Vitamin D3, 5,000 unit tab Take 5,000 Units by mouth once daily. (Patient not taking: Reported on 06/12/2023) lpxei-1a-flf-epa-fish oil-D3 350 mg-400 mg- 1,000 unit cap Take by mouth. Takes a total of 5,000 daily (Patient not taking: Reported on 06/12/2023) Red Yeast Rice Extract 600 mg ORAL Cap Take by mouth. Take one(1) tablet two(2) times daily. (Patient not taking: Reported on 06/12/2023) Glutamine (L-GLUTAMINE) 500 mg ORAL Cap Take one(1) tablet daily. (Patient not taking: Reported on 06/12/2023) VITAMIN C 500 MG ORAL TAB Take one(1) tablet daily. (Patient not taking: Reported on 06/12/2023) No current facility-administered medications on file prior to visit. Social History Social History Tobacco Use Smoking status: Never Smokeless tobacco: Never Vaping Use Vaping Use: Never used Substance Use Topics Alcohol use: No Drug use: No Review of Symptoms REVIEW OF SYSTEMS See HPI, otherwise negative EXAM: BP 124/72 (BP Site: Left Arm, BP Position: Sitting, BP Cuff Size: Regular Adult) Pulse (!) 52 Resp 16 Wt 52.6 kg (116 lb) SpO2 99% BMI 24.24 kg/m General Appearance: Well appearing, alert, in no acute distress, well-hydrated, well nourished.. Lungs: Lungs clear to auscultation. No wheezing, rhonchi, rales.. Heart: RRR without murmur, gallop, or rubs. No ectopy. Abdomen: Normal abdominal exam, Abdomen soft, non-tender. Bowel sounds normal. No masses, organomegaly. Psychiatric: pleasant, cooperative. Health Maintenance List Covid-19 Vaccine(1) Never done RSV Vaccine(1 - 1-dose 60+ series) due on 01/22/2024 Shingrix Vaccine(1 of 2) due on 01/22/2024 Pneumococcal Vaccine: 65+(1 of 2 - PCV) due on 01/22/2024 Influenza Vaccine(Season Ended) due on 11/03/2023 Diabetes Screening due on 05/07/2026 DTaP,Tdap,Td Vaccine(4 - Td or Tdap) due on 11/23/2032 Bone Density Screening Completed Spirometry Completed Colorectal Cancer Screening Discontinued Advance Directive Discussion Discontinued Data reviewed Previous records, office notes ASSESSMENT/PLAN: 1. Abdominal discomfort - ICD9: 789.00, ICD10: R10.9 (primary diagnosis) Discussed bland, not acidic or spicy foods, eating smaller amounts at a time. If episodes of pain return or increase significantly, consider Hida scan. 2. Hypertension, essential - ICD9: 401.9, ICD10: I10 - Controlled - Continue current medications - Recommend home blood pressure monitoring, to bring results to next visit - Encouraged sodium restriction, DASH or Mediterranean diet - Recommend regular aerobic exercise 3. Dementia without behavioral disturbance (HCC) - ICD9: 294.20, ICD10: F03.90 Continue to monitor. 4. Oral lesion - ICD9: 528.9, ICD10: K13.70 Has acyclovir at home, this has worked well in the past. Will notify the office if no improvement in sx. Angeline Monterroso APRN.CNP documented in this encounter [facility] 06-08-2023 Miscellaneous Notes Patient calling requesting health information: patient states her PCP recently stopped her Lisinopril and started her on Losartan due to patient developing a cough. Patient states the cough is gone and is requesting a prescription for Lisinopril be called to pharmacy. Patient has an appointment with PCP scheduled for 06/11/2023. Patient advised to take Losartan until follow up appointment on 06/11/23 when she can discuss medications with PCP. Patient verbalized understanding of information provided. Patient denies any new or worsening symptoms of which a provider is not aware:Yes. GO TO THE EMERGENCY ROOM OR CALL 911 IF: * You develop any new symptoms * Your condition worsens * You are concerned or anxious about your condition for any other reason. If you have any questions, you can call Nurse timber poisoner back. documented in this encounter [facility] 06-04-2023 Miscellaneous Notes Noted, thank you. Angeline Monterroso APRN.CNP Patient calling to report her BP is 130/60. She does not know what her BP was when she took second dose. She says she has no dizziness nor lightheadedness. Reports no other symptoms. She will call back if her BP gets any lower or if she develops symptoms of dizziness, lightheadedness or weakness. Elizabeth Perez RN Patient calling to say she took Lisinopril 10 mg this morning and another dose at 5:30 PM. This medication appears to have been discontinued and switched to Losartan 25 mg on 01/04/23. She says she is not taking Losartan. She says her tells her she chose to stay on Lisinopril because she is no longer coughing. She says she is sure she is not taking both medications. Previous Lisinopril order says she may take another 1/2 tablet if needed for BP 140/90 or greater. She says she will call back in one hour with BP reading and increase water intake. Has follow up appointment with Angeline Monterroso on 06/11/23. Elizabeth Perez, RN documented in this encounter [facility] 05-24-2023 Miscellaneous Notes Spoke with pt gave information provided. Pt voices understanding. Please inform patient that her Abdominal/pelvis MRI shows no changes as below IMPRESSION: Unchanged lobulated cystic lesion in the pancreatic body, without definite communication to the nondilated duct. No suspicious enhancing nodules. Differential includes a sidebranch IPMN or an oligocystic serous adenoma. Edenilson Nicholson DO documented in this encounter [facility] 05-22-2023 Note HNO ID: [id number] Author: SARA ESTEVES RT(R) Service: ? Author Type: Technologist Type: Progress Notes Filed: 05/22/2023 17:56 Note Text: Summary: MRI Radiology Service Progress Note DATE OF SERVICE: May 22, 2023 TIME: 5:55 PM PATIENT IDENTITY VERIFICATION COMPLETED USING TWO (2) STANDARD IDENTIFIERS: Name and Date of confirmed by patient verbally and Name and Date of confirmed by identification band. FALL SCREENING: Has the patient had 2 falls in the last year or 1 fall with injury or currently using an Ambulatory Assistive Device (Walker, Cane, Wheelchair, Crutches, etc.)? No PATIENT GENDER DATA: Female. status: : No status: NO. PATIENT RELEVANT IMPLANT DATA REVIEWED: Yes PATIENT PRESENTS WITH AN IMPLANTABLE OR ATTACHED PANTOGRAPH I ENGRAVER: No ALLERGIES: Reviewed and unchanged CONTRAST ALLERGY: NO. EXAM: MRI - CONTRAST TYPE: GROUP II PERIPHERAL IV DATA: Ambulatory: A peripheral IV was started in the Left antecubital site with a Angio cath: 20 gauge. RADIOLOGY DEPARTMENT: MR; Exam(s) Completed: Body: Pancreas/Biliary SIGNATURE: Sara Esteves, RT(R) PATIENT NAME: Anaya Wilson DATE: May 22, 2023 TIME: 5:55 PM [facility] 05-22-2023 History of Present illness Narrative Summary: MRI Radiology Service Progress Note DATE OF SERVICE: May 22, 2023 TIME: 5:55 PM PATIENT IDENTITY VERIFICATION COMPLETED USING TWO (2) STANDARD IDENTIFIERS: Name and Date of confirmed by patient verbally and Name and Date of confirmed by identification band. FALL SCREENING: Has the patient had 2 falls in the last year or 1 fall with injury or currently using an Ambulatory Assistive Device (Walker, Cane, Wheelchair, Crutches, etc.)? No PATIENT GENDER DATA: Female. status: : No status: NO. PATIENT RELEVANT IMPLANT DATA REVIEWED: Yes PATIENT PRESENTS WITH AN IMPLANTABLE OR ATTACHED PANTOGRAPH I ENGRAVER: No ALLERGIES: Reviewed and unchanged CONTRAST ALLERGY: NO. EXAM: MRI - CONTRAST TYPE: GROUP II PERIPHERAL IV DATA: Ambulatory: A peripheral IV was started in the Left antecubital site with a Angio cath: 20 gauge. RADIOLOGY DEPARTMENT: MR; Exam(s) Completed: Body: Pancreas/Biliary SIGNATURE: RT Yancy(R) PATIENT NAME: Anaya Wilson DATE: May 22, 2023 TIME: 5:55 PM documented in this encounter [facility] 05-15-2023 Miscellaneous Notes Pts line remains busy . Will need to try again. She does not have an appt with Kandi today. Angeline Monterroso APRN.SHIP KEEPER Line remains busy. Does have appointment today with Kandi . Will let her know at that appt. Line busy will need to try back. Yes, okay to restart vitamins and prozac She should be taking losartan 25 mg a day and NOT lisinopril Edenilson Nicholson DO Patient phoned and given provider's message below with verbalized understanding. Pt agreeable. Patient asking provider if it is ok for her to take her vitamins? Currently taking: claritin, magnesium, D3, calcium, & MVI. She hasn't taken them since ER. Reports her pancreatitis is improved, she was able to eat mac n cheese without creating pain. That's the only solid she has eaten since ER. Reports she is eating chicken broth and drinking malick coconut water. Reports she hasn't taken prozac since she was in ER. Asking if she should start taking that again? It's been 5 days now. In review of her BP medication- med list says she should be taking losartan. Pt reports she is not, she is still taking lisinopril and has been getting refills at the pharmacy on it (lisinopril was d/c'd on 01-04-23). Please advise pt. Transferred to [facility] to schedule MRI. Attempted to contact patient for a second time and line seems to be busy. Just beeping. Ivette Valenzuela Line busy will need to try back. Please let Anaya/her know that her ultrasound today looks completely normal. Dr. Nicholson placed an order on 01/16/2023 for a repeat MRI of her pancreas due to monitoring a lesion. Please schedule this sooner due to recent lab findings, assessment, and ER dx. Please assist her to schedule this appointment. Angeline Monterroso APRN.KEVIN documented in this encounter [facility] 05-08-2023 Note HNO ID: [id number] Author: GETACHEW PULIDO TECHNCJ Service: ? Author Type: Technologist Type: Progress Notes Filed: 05/08/2023 14:24 Note Text: Radiology Service Progress Note PATIENT NAME: Anaya Wilson DATE OF SERVICE: May 08, 2023 TIME: 2:24 PM PATIENT IDENTITY VERIFICATION COMPLETED USING TWO (2) IDENTIFIERS: Name and Date of confirmed by patient verbally. FALL SCREENING: Has the patient had 2 falls in the last year or 1 fall with injury or currently using an Ambulatory Assistive Device (Walker, Cane, Wheelchair, Crutches, etc.)? No PATIENT GENDER DATA: Female. status: : No status: NO. PATIENT RELEVANT IMPLANT DATA REVIEWED: Yes PATIENT PRESENTS WITH AN IMPLANTABLE OR ATTACHED PANTOGRAPH I ENGRAVER: No RADIOLOGY DEPARTMENT: Ultrasound PERIPHERAL IV DATA: Not applicable SIGNED BY: TECHNOLOGIST Precious May 08, 2023 2:24 PM [facility] 05-08-2023 History of Present illness Narrative Radiology Service Progress Note PATIENT NAME: Anaya Wilson DATE OF SERVICE: May 08, 2023 TIME: 2:24 PM PATIENT IDENTITY VERIFICATION COMPLETED USING TWO (2) IDENTIFIERS: Name and Date of confirmed by patient verbally. FALL SCREENING: Has the patient had 2 falls in the last year or 1 fall with injury or currently using an Ambulatory Assistive Device (Walker, Cane, Wheelchair, Crutches, etc.)? No PATIENT GENDER DATA: Female. status: : No status: NO. PATIENT RELEVANT IMPLANT DATA REVIEWED: Yes PATIENT PRESENTS WITH AN IMPLANTABLE OR ATTACHED PANTOGRAPH I ENGRAVER: No RADIOLOGY DEPARTMENT: Ultrasound PERIPHERAL IV DATA: Not applicable SIGNED BY: TECHNOLOGIST Precious May 08, 2023 2:24 PM documented in this encounter [facility] 05-08-2023 Instructions Angeline Monterroso APRN.CNP - 05/08/2023 9:22 AM EST Have your ultrasound, I should have this result later today. Diet: Liquid diet for 1-2 days. As long as you're tolerating it... Soft diet for 2-3 days. As long as you're tolerating it... Introduce your regular foods, but try to stay away from acidic and spicy foods. documented in this encounter [facility] 05-08-2023 History of Present illness Narrative Chief Complaint Patient presents with: ER follow up abdominal pain HPI Anaya Wilson is a 83 year old female who presents here today for Above Complaints. Currently: Pain in mid upper abdomen, moves to each side. Is achy, feels a little bloated. Was in ER at [place] this morning and told she had pancreatitis. Just a little bit of nausea, no vomiting. Prior to this episode last night, ate a sandwich and strawberry milkshake-possibly hurt a little but prior to this. Started to hurt about 2:30 this morning, went to the ER around 4 this morning. Past medical history, appointments, medications, allergies reviewed. 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 Dementia (HCC) Diverticulosis of colon (without mention of hemorrhage) Dry cough 05/23/2016 Ganglion of joint 07/16/2005 Generalized osteoarthrosis, unspecified site Hemorrhage of gastrointestinal tract, unspecified Hemorrhage of rectum and anus Hypertension Infection of left eye Irritable bowel syndrome Osteomalacia, unspecified Other and unspecified hyperlipidemia Pneumonia, organism unspecified(486) PONV (postoperative nausea and vomiting) Psoriatic arthritis (HCC) Rectocele 01/05/2011 Skin tear of lower leg without complication 05/23/2016 Sprain of unspecified site of sacroiliac region Unspecified constipation Urge incontinence mild Previous Surgical History PAST SURGICAL HISTORY Procedure Laterality Date ARTHRP KNE CONDYLE&PLATU MEDIAL&LAT COMPARTMENTS Right 06/03/2017 Knee replacement, total COLONOSCOPY 05/10/2022 rectal mass COLONOSCOPY FLX DX W/COLLJ SPEC WHEN PFRMD 04/20/2002 Colonoscopy COLONOSCOPY FLX DX W/COLLJ SPEC WHEN PFRMD 07/25/2011 Colonoscopy EYE SURGERY HX JOINT REPLACEMENT HX NEUROPLASTY &/TRANSPOS MEDIAN NRV CARPAL TUNNE 1979 Carpal tunnel decomp b/l hands NEUROPLASTY &/TRANSPOS MEDIAN NRV CARPAL TUNNE 12/18/2011 RIGHT PAST SURGICAL HISTORY OF Left laser eye surgery for glaucoma SIGMOIDOSCOPY FLX DX W/COLLJ SPEC BR/WA IF PFRMD 06/23/2007 TOTAL ABDOMINAL HYSTERECT W/WO RMVL TUBE OVARY 1988 RUBI/BSO for fibroids and bleeding TOTAL KNEE REPLACEMENT Left 03/28/2020 VAGINAL HYSTERECTOMY Family History FAMILY HISTORY Problem Relation Age of Onset Heart Mother CHF Cancer Father prostate Psychiatry Father Cancer Brother No Known Problems Daughter No Known Problems Daughter No Known Problems Daughter Breast Cancer Maternal Aunt Patient Allergies ALLERGIES Allergen Reactions Caffeine Codeine Darvocet A500 [Prop* Vomiting Demerol [Meperidine* Vomiting Entex [Phenylephrin* Ephedrine Other: See Comments Heart palpitations Griseofulvin Milk Containing Pro* Intolerance Nasal stuffiness Tramadol Other: See Comments Nausea, vomiting, dry heaves after carpal tunnel surgery Vicodin [Hydrocodon* Itching Zoloft [Sertraline * Mental Status Change Increased anxiety and feeling of depression. Started in 2005, not noted then Current Medications Current Outpatient Medications on File Prior to Visit Medication Sig ondansetron orally disintegrating (ZOFRAN ODT) 4 mg disintegrating tablet Take 1 tablet by mouth every 6 hours as needed for nausea/vomiting for up to 7 days. FLUoxetine (PROZAC) 10 mg capsule Take 1 capsule by mouth once daily. donepezil (ARICEPT) 5 mg tablet Take 1 tablet by mouth daily at bedtime. Azelaic Acid (FINACEA) 15 % gel Apply to affected area once daily. losartan (COZAAR) 25 mg tablet TAKE 1 TABLET BY MOUTH EVERY DAY amitriptyline (ELAVIL) 10 mg tablet Take 1 tablet by mouth daily at bedtime. methotrexate 2.5 mg tablet 2.5 mg tablet, takes 7 tablets every Saturday. Hold Saturday.8 dose as took dose early on October 05, 2022. To resume weekly dosage on Sunday October 16, 2022. benzonatate (TESSALON PERLE) 100 mg capsule Take 2 capsules by mouth three times daily as needed. loratadine (CLARITIN) 10 mg tablet Take 1 tablet by mouth once daily. meloxicam (MOBIC) 15 mg tablet Take 1 tablet by mouth once daily. hydrocortisone (ANUSOL-HC) 25 mg suppository 1 Suppository by RECTAL route twice daily as needed (hemorrhoids/rectal pain). methotrexate 2.5 mg tablet Take 6 tablets once weekly,on polyethylene glycol 3350 (MIRALAX ORAL) Take 1 Cap-Full by mouth once daily as needed. fluorometholone (FML LIQUID FILM) 0.1 % ophthalmic suspension Use 1 Drop in both eyes once daily. multivitamin with minerals (VISION/OPTIGEN) tablet Take 1 tablet by mouth once daily. CALCIUM/MAGNESIUM (CALCIUM AND MAGNESIUM ORAL) Take 3 capsules by mouth twice daily. BIOTIN ORAL Take by mouth once daily. MULTIVITAMIN ORAL Take by mouth once daily. Gummies FOLIC ACID ORAL Take by mouth. Cholecalciferol, Vitamin D3, 5,000 unit tab Take 5,000 Units by mouth once daily. mwutz-[id number]-lgg-epa-fish oil-D3 350 mg-400 mg- 1,000 unit cap Take by mouth. Takes a total of 5,000 daily Red Yeast Rice Extract 600 mg ORAL Cap Take by mouth. Take one(1) tablet two(2) times daily. Lecithin 400 mg ORAL Cap Take one(1) tablet daily. Glutamine (L-GLUTAMINE) 500 mg ORAL Cap Take one(1) tablet daily. VITAMIN C 500 MG ORAL TAB Take one(1) tablet daily. No current facility-administered medications on file prior to visit. Social History Social History Tobacco Use Smoking status: Never Smokeless tobacco: Never Vaping Use Vaping Use: Never used Substance Use Topics Alcohol use: No Drug use: No Review of Symptoms REVIEW OF SYSTEMS See HPI, otherwise negative EXAM: BP 132/72 Pulse (!) 58 Resp 16 Wt 54 kg (119 lb) SpO2 95% BMI 24.87 kg/m General Appearance: ill-appearing, alert, in no acute distress, well-hydrated, well nourished. Lungs: Lungs clear to auscultation. No wheezing, rhonchi, rales.. Heart: RRR without murmur, gallop, or rubs. No ectopy. Abdomen: Abdomen soft. Mild tenderness to upper abdomen bilaterally with palpation. Bowel sounds normal. No masses, organomegaly. Psychiatric: pleasant, cooperative. Health Maintenance List Covid-19 Vaccine(1) Never done Influenza Vaccine(1) due on 09/01/2023 RSV Vaccine(1 - 1-dose 60+ series) due on 01/22/2024 Shingrix Vaccine(1 of 2) due on 01/22/2024 Pneumococcal Vaccine: 65+(1 of 2 - PCV) due on 01/22/2024 Diabetes Screening due on 05/07/2026 DTaP,Tdap,Td Vaccine(4 - Td or Tdap) due on 11/23/2032 Bone Density Screening Completed Spirometry Completed Colorectal Cancer Screening Discontinued Advance Directive Discussion Discontinued Data reviewed Previous records, office notes ASSESSMENT/PLAN: 1. Elevated lipase - ICD9: 790.5, ICD10: R74.8 (primary diagnosis) Concern for gallbladder etiology. Discussed appropriate diet of liquids and advance to softs and gradually to regular diet-no spicy or acidic foods. Consider moving her pancreas MRI up, will depend on results of RUQ ultrasound today. - US ABD RIGHT UPPER QUADRANT - KETOROLAC 60 MG/2 ML INTRAMUSCULAR SOLUTION 2. Bloating - ICD9: 787.3, ICD10: R14.0 Concern for gallbladder etiology. Discussed appropriate diet of liquids and advance to softs and gradually to regular diet-no spicy or acidic foods. Consider moving her pancreas MRI up, will depend on results of RUQ ultrasound today. - US ABD RIGHT UPPER QUADRANT - KETOROLAC 60 MG/2 ML INTRAMUSCULAR SOLUTION 3. Upper abdominal pain - ICD9: 789.09, ICD10: R10.10 Concern for gallbladder etiology. Discussed appropriate diet of liquids and advance to softs and gradually to regular diet-no spicy or acidic foods. Consider moving her pancreas MRI up, will depend on results of RUQ ultrasound today. - US ABD RIGHT UPPER QUADRANT - KETOROLAC 60 MG/2 ML INTRAMUSCULAR SOLUTION 4. Nausea - ICD9: 787.02, ICD10: R11.0 Concern for gallbladder etiology. Discussed appropriate diet of liquids and advance to softs and gradually to regular diet-no spicy or acidic foods. Consider moving her pancreas MRI up, will depend on results of RUQ ultrasound today. - US ABD RIGHT UPPER QUADRANT - KETOROLAC 60 MG/2 ML INTRAMUSCULAR SOLUTION Angeline Monterroso APRN.KEVIN documented in this encounter [facility] 05-06-2023 Miscellaneous Notes SPECIALTY CARE COORDINATION FOLLOW-UP NOTE Spoke to Anaya. She confirmed that she wants to cancel her surgery. She says she spoke to Dr. Nicholson and that she will continue to work on her pelvic floor physical therapy. She said thank you; she was going to cry. Explained that if she would ever need us to call. She thanked me for the phone call. Jenny Yun RN May 06, 2023 documented in this encounter [facility] 04-17-2023 History of Present illness Narrative CC: Anaya Wilson is a 83 year old female who presents to the office for follow up HPI: Seen in office 08/01/22 as below Rectal prolapse, has now had 2 events of rectal prolapse, once in Jan 2022 and then again in July 2022. She was seen in the EMERGENCY DEPARTMENT by Dr. Berman and had reduction of the prolapse. She was seen by Colorectal surgeon Dr. Villalobos and told that when she is ready for surgery that she can call to schedule. Anaya is not really wanting to do surgical repair of rectal prolapse if able to avoid this. HTN, well controlled, No CP or dyspnea or dizziness/LH or edema Memory changes, seems to be worsening with time, especially short term memory such as unsure if she took her medicaitons or what she ate for a prior meal. Also recently is noticing more word finding difficulty. No new headaches, does occasionally have some dizziness/LH, no syncope. No fevers or chills. No head injuries. At follow up on 11/14/22 She was recently seen in UC yesterday for urinary symptoms. Diagnosed with UTI, awaiting urine culture results. She was started on Keflex medication. Already feels her symptoms are improving Rectal prolapse, present x months/years now. Has seen colorectal surgeon Dr. Villalobos. Feels she is ready to pursue potential surgical correction. It is becoming more bothersome to her daily life. Recently had dental procedure and has been holding her methotrexate for 3-4 weeks Hx of osteopenia.. last BMD about 2-2.5 years ago. Willing to repeat. Cough, present for the last few months. Was seen by 2-3 different providers and had steroids and antibiotic and CXR, still with symptoms, no fevers or chills or hemoptysis. No distress with rest, sometimes dyspnea with exertion At recent follow up on 12/05/2022 Cough, she recently had CT chest on 11/20/22, results showed that her pulmonary examination was normal. She incidentally was found to have a 2 cm pancreatic cyst. Recommended that she have MRI pancreas / biliary duct system. She denies any abdomina pain or nausea or vomiting or new bowel changes. Osteopenia, she had recent BMD, femoral neck at -2.0. she admits that she hasn't recently been taking all her bone supplements, she will restart this upcoming. She has been walking for exercise, no falls. Recently with UTI, treated with antibiotic, needing urine to be rechecked. Currently Patient is present with her today in the office, Don Shine, taking prozac 10 mg a day as prescribed. does notice that this has been beneficial for her. He is concerned about her short term memory struggles and acute memory difficulties. No head injuries. She struggles with short term memory and forgetfulness. There were family members with alzheimer's disease. She has had a CT brain in the last 6 months which was without acute findings. He is very concerned about anesthesia and how this will affect her memory and wants her to post pone the surgery. She also doesn't want to pursue the surgery for colpopexy- she has had 2 episdoes only for rectal prolapse- 1st 12/02/2021, 2nd 07/18/2022. No further episodes Rectal prolapse. Wants to not go through with surgery now. 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 Diverticulosis of colon (without mention of hemorrhage) Dry cough 05/23/2016 Ganglion of joint 07/16/2005 Generalized osteoarthrosis, unspecified site Hemorrhage of gastrointestinal tract, unspecified Hemorrhage of rectum and anus Hypertension Infection of left eye Irritable bowel syndrome Osteomalacia, unspecified Other and unspecified hyperlipidemia Pneumonia, organism unspecified(486) PONV (postoperative nausea and vomiting) Psoriatic arthritis (HCC) Rectocele 01/05/2011 Skin tear of lower leg without complication 05/23/2016 Sprain of unspecified site of sacroiliac region Unspecified constipation Urge incontinence mild PAST SURGICAL HISTORY Procedure Laterality Date ARTHRP KNE CONDYLE&PLATU MEDIAL&LAT COMPARTMENTS Right 06/03/2017 Knee replacement, total COLONOSCOPY 05/10/2022 rectal mass COLONOSCOPY FLX DX W/COLLJ SPEC WHEN PFRMD 04/20/2002 Colonoscopy COLONOSCOPY FLX DX W/COLLJ SPEC WHEN PFRMD 07/25/2011 Colonoscopy EYE SURGERY HX JOINT REPLACEMENT HX NEUROPLASTY &/TRANSPOS MEDIAN NRV CARPAL TUNNE 1979 Carpal tunnel decomp b/l hands NEUROPLASTY &/TRANSPOS MEDIAN NRV CARPAL TUNNE 12/18/2011 RIGHT PAST SURGICAL HISTORY OF Left laser eye surgery for glaucoma SIGMOIDOSCOPY FLX DX W/COLLJ SPEC BR/WA IF PFRMD 06/23/2007 TOTAL ABDOMINAL HYSTERECT W/WO RMVL TUBE OVARY 1988 RUBI/BSO for fibroids and bleeding TOTAL KNEE REPLACEMENT Left 03/28/2020 VAGINAL HYSTERECTOMY Current Outpatient Medications Medication Sig Azelaic Acid (FINACEA) 15 % gel Apply to affected area once daily. losartan (COZAAR) 25 mg tablet TAKE 1 TABLET BY MOUTH EVERY DAY amitriptyline (ELAVIL) 10 mg tablet Take 1 tablet by mouth daily at bedtime. methotrexate 2.5 mg tablet 2.5 mg tablet, takes 7 tablets every Saturday. Hold Saturday8 dose as took dose early on October 05, 2022. To resume weekly dosage on Sunday October 16, 2022. benzonatate (TESSALON PERLE) 100 mg capsule Take 2 capsules by mouth three times daily as needed. loratadine (CLARITIN) 10 mg tablet Take 1 tablet by mouth once daily. meloxicam (MOBIC) 15 mg tablet Take 1 tablet by mouth once daily. hydrocortisone (ANUSOL-HC) 25 mg suppository 1 Suppository by RECTAL route twice daily as needed (hemorrhoids/rectal pain). methotrexate 2.5 mg tablet Take 6 tablets once weekly,on polyethylene glycol 3350 (MIRALAX ORAL) Take 1 Cap-Full by mouth once daily as needed. fluorometholone (FML LIQUID FILM) 0.1 % ophthalmic suspension Use 1 Drop in both eyes once daily. multivitamin with minerals (VISION/OPTIGEN) tablet Take 1 tablet by mouth once daily. CALCIUM/MAGNESIUM (CALCIUM AND MAGNESIUM ORAL) Take 3 capsules by mouth twice daily. BIOTIN ORAL Take by mouth once daily. MULTIVITAMIN ORAL Take by mouth once daily. Gummies FOLIC ACID ORAL Take by mouth. Cholecalciferol, Vitamin D3, 5,000 unit tab Take 5,000 Units by mouth once daily. mqjek-8r-quh-epa-fish oil-D3 350 mg-400 mg- 1,000 unit cap Take by mouth. Takes a total of 5,000 daily Red Yeast Rice Extract 600 mg ORAL Cap Take by mouth. Take one(1) tablet two(2) times daily. Lecithin 400 mg ORAL Cap Take one(1) tablet daily. Glutamine (L-GLUTAMINE) 500 mg ORAL Cap Take one(1) tablet daily. VITAMIN C 500 MG ORAL TAB Take one(1) tablet daily. FLUoxetine (PROZAC) 10 mg capsule Take 1 capsule by mouth once daily. donepezil (ARICEPT) 5 mg tablet Take 1 tablet by mouth daily at bedtime. No current facility-administered medications for this visit. ALLERGIES Allergen Reactions Caffeine Codeine Darvocet A500 [Prop* Vomiting Demerol [Meperidine* Vomiting Entex [Phenylephrin* Ephedrine Other: See Comments Heart palpitations Griseofulvin Milk Containing Pro* Intolerance Nasal stuffiness Tramadol Other: See Comments Nausea, vomiting, dry heaves after carpal tunnel surgery Vicodin [Hydrocodon* Itching Zoloft [Sertraline * Mental Status Change Increased anxiety and feeling of depression. Started in 2005, not noted then Social History Tobacco Use Smoking status: Never Smokeless tobacco: Never Vaping Use Vaping Use: Never used Substance Use Topics Alcohol use: No Drug use: No ROS: See HPI PE: BP 120/80 Pulse 60 Temp (Src) 97.3 (Temporal) Resp 16 Wt 120 lb (54.4kg) Gen: A&OX3, NAD, non-toxic appearing HEENT: PERRLA, EOMs intact b/l, nares without drainage, pharynx without erythema, exudate, lesions, or drainage. Uvula midline. Neck: No LAD, no thyromegaly, no meningismus. CV: RRR, no murmur Lungs: CTA b/l, no wheezing Skin: No rashes, lesions, or wounds on exposed skin. Non focal neurologic examination Gait is slowed but stable in office + short term memory difficulty in office No edema, normal pulses ASSESSMENT/PLAN: 1. Hypertension, essential - ICD9: 401.9, ICD10: I10 (primary diagnosis) - Controlled - Continue current medications - Recommend home blood pressure monitoring, to bring results to next visit - Encouraged sodium restriction, DASH or Mediterranean diet - Recommend regular aerobic exercise 2. JOSHUA (generalized anxiety disorder) - ICD9: 300.02, ICD10: F41.1 rx refilled, mood seems to be stable - FLUOXETINE 10 MG CAPSULE 3. Dementia without behavioral disturbance (HCC) - ICD9: 294.20, ICD10: F03.90 Trial of aricept. She and her aren't interested in full memory testing at [facility] which is what has been offered. She has had labs and CT brain without acute findings. F/u in office in 3 months and prn 4. Rectal prolapse - ICD9: 569.1, ICD10: K62.3 See above, she is not wanting to pursue surgical intervention at this time. 5. Short-term memory loss - ICD9: 780.93, ICD10: R41.3 Trial of aricept. She and her aren't interested in full memory testing at [facility] which is what has been offered. She has had labs and CT brain without acute findings. F/u in office in 3 months and prn Edenilson Nicholson DO Return if no improvement. Follow up with Edenilson Nicholson DO. To ER if develops chest pain, shortness of breath. Discussed risks, benefits, alternatives, and potential side effects of medications. Patient/Guardian expressed understanding and agreed with the plan. See patient instructions. Edenilson Nicholson DO [address] [place] [address] documented in this encounter [facility] 02-14-2023 Miscellaneous Notes Called patient about rescheduled appts lvm documented in this encounter [facility] 02-13-2023 Miscellaneous Notes SPECIALTY CARE COORDINATION FOLLOW-UP NOTE Spoke to Anaya and Jose Guadalupe, . She accepted a new surgery date of 05/27 and pre op 05/26 pre op appointment date since Dr. Villalobos will be out of town on 3/12. Explained that if they have any questions to please call the office at [phone]. They stated they understood and thanked me for the phone call. Jenny Yun RN February 13, 2023 documented in this encounter [facility] 02-06-2023 Miscellaneous Notes Date of last office: 01/28/2023 Date of next office visit: 03/11/2023 Requested Prescriptions Pending Prescriptions Disp Refills Azelaic Acid (FINACEA) 15 % gel 15 g 1 Sig: Apply to affected area once daily. Please advise. Thank you. Yi Jones RN. documented in this encounter [facility] 02-05-2023 Miscellaneous Notes Pt calling requesting refill. Advises she used this rx today and would like to keep this on hand for her appointments. Call pt only if problem. Tobi Burnett LPN documented in this encounter [facility] 01-28-2023 History of Present illness Narrative Above L eyebrow (site) was assessed and 1 sutures was removed as ordered. No dressing required. Patient instructed on wound care and verbalized understanding. Kandi Park APRN.SHIP KEEPER documented in this encounter [facility] 01-23-2023 Miscellaneous Notes Glad to hear. Thank you, Kandi Park APRN.SHIP KEEPER Patient notified of results, verbalizes understanding of instructions. Pt stated she is no longer having urinary sx. Mckenna Dc LPN Please call patient and let her know that urine culture was negative. No signs of bacteria or UTI. Please see if she is still having urinary symptoms. Thank you, Kandi Park APRN.SHIP KEEPER documented in this encounter [facility] 01-21-2023 History of Present illness Narrative Chief Complaint Patient presents with: fall: Hit above eye area glasses cut has on stitch per . Happened 2 days ago saturday , they told then 2-3 days needed looked at by pcp HPI Anaya Wilson is a 82 year old female who presents here today for Above Complaints.. Anaya is an established patient of Dr. Bharat DO. She is a new patient to me today. Concerns today... ER follow-up --- [facility] visit on 01/19/23 d/t fall and laceration above eyelid. CT spine and CT head/brain -- negative. In office today.... Pt reports tripping over cement driveway lip, walking from grass and did not step up enough to get on to driveway. Denies any dizziness, LOC, or lightheadedness. Laceration above L eyebrow -- 1 suture in ER. Was told to follow-up with PCP team today to reassess wound for infection. No antibiotic regimen currently. Due for suture removal at 7-10 days post fall. Bruising and black and blue below L eye -- bruising is worsening. Had to take 1 dose of tylenol Saturday for mild discomfort -- pain improved since. L wrist bruising as well due to catching herself with this arm as she feel. Pt denies any pain, stiffness with ROM, or swelling to this area. Pt also reports urinary urgency and frequency that started yesterday. Hx of recurrent UTI from time to time. Pt denies any flank or pelvic pain. No fever/chills. No other concerns or complaints. Past medical history, appointments, medications, allergies reviewed. 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 Diverticulosis of colon (without mention of hemorrhage) Dry cough 05/23/2016 Ganglion of joint 07/16/2005 Generalized osteoarthrosis, unspecified site Hemorrhage of gastrointestinal tract, unspecified Hemorrhage of rectum and anus Hypertension Infection of left eye Irritable bowel syndrome Osteomalacia, unspecified Other and unspecified hyperlipidemia Pneumonia, organism unspecified(486) PONV (postoperative nausea and vomiting) Psoriatic arthritis (HCC) Rectocele 01/05/2011 Skin tear of lower leg without complication 05/23/2016 Sprain of unspecified site of sacroiliac region Unspecified constipation Urge incontinence mild Previous Surgical History PAST SURGICAL HISTORY Procedure Laterality Date ARTHRP KNE CONDYLE&PLATU MEDIAL&LAT COMPARTMENTS Right 06/03/2017 Knee replacement, total COLONOSCOPY 05/10/2022 rectal mass COLONOSCOPY FLX DX W/COLLJ SPEC WHEN PFRMD 04/20/2002 Colonoscopy COLONOSCOPY FLX DX W/COLLJ SPEC WHEN PFRMD 07/25/2011 Colonoscopy EYE SURGERY HX JOINT REPLACEMENT HX NEUROPLASTY &/TRANSPOS MEDIAN NRV CARPAL TUNNE 1979 Carpal tunnel decomp b/l hands NEUROPLASTY &/TRANSPOS MEDIAN NRV CARPAL TUNNE 12/18/2011 RIGHT PAST SURGICAL HISTORY OF Left laser eye surgery for glaucoma SIGMOIDOSCOPY FLX DX W/COLLJ SPEC BR/WA IF PFRMD 06/23/2007 TOTAL ABDOMINAL HYSTERECT W/WO RMVL TUBE OVARY 1988 RUBI/BSO for fibroids and bleeding TOTAL KNEE REPLACEMENT Left 03/28/2020 VAGINAL HYSTERECTOMY Family History FAMILY HISTORY Problem Relation Age of Onset Heart Mother CHF Cancer Father prostate Psychiatry Father Cancer Brother No Known Problems Daughter No Known Problems Daughter No Known Problems Daughter Breast Cancer Maternal Aunt Patient Allergies ALLERGIES Allergen Reactions Caffeine Codeine Darvocet A500 [Prop* Vomiting Demerol [Meperidine* Vomiting Entex [Phenylephrin* Ephedrine Other: See Comments Heart palpitations Griseofulvin Milk Containing Pro* Intolerance Nasal stuffiness Tramadol Other: See Comments Nausea, vomiting, dry heaves after carpal tunnel surgery Vicodin [Hydrocodon* Itching Zoloft [Sertraline * Mental Status Change Increased anxiety and feeling of depression. Started in 2005, not noted then Current Medications Current Outpatient Medications on File Prior to Visit Medication Sig losartan (COZAAR) 25 mg tablet Take 1 tablet by mouth once daily. amitriptyline (ELAVIL) 10 mg tablet Take 1 tablet by mouth daily at bedtime. methotrexate 2.5 mg tablet 2.5 mg tablet, takes 7 tablets every Saturday. Hold Saturday.8 dose as took dose early on October 05, 2022. To resume weekly dosage on Sunday October 16, 2022. benzonatate (TESSALON PERLE) 100 mg capsule Take 2 capsules by mouth three times daily as needed. (Patient not taking: Reported on 11/26/2022) loratadine (CLARITIN) 10 mg tablet Take 1 tablet by mouth once daily. FLUoxetine (PROZAC) 10 mg capsule Take 1 capsule by mouth once daily. meloxicam (MOBIC) 15 mg tablet Take 1 tablet by mouth once daily. hydrocortisone (ANUSOL-HC) 25 mg suppository 1 Suppository by RECTAL route twice daily as needed (hemorrhoids/rectal pain). methotrexate 2.5 mg tablet Take 6 tablets once weekly,on polyethylene glycol 3350 (MIRALAX ORAL) Take 1 Cap-Full by mouth once daily as needed. (Patient not taking: Reported on 11/26/2022) fluorometholone (FML LIQUID FILM) 0.1 % ophthalmic suspension Use 1 Drop in both eyes once daily. Azelaic Acid (FINACEA) 15 % gel Apply to affected area once daily. multivitamin with minerals (VISION/OPTIGEN) tablet Take 1 tablet by mouth once daily. (Patient not taking: Reported on 11/26/2022) CALCIUM/MAGNESIUM (CALCIUM AND MAGNESIUM ORAL) Take 3 capsules by mouth twice daily. (Patient not taking: Reported on 11/26/2022) BIOTIN ORAL Take by mouth once daily. (Patient not taking: Reported on 11/26/2022) MULTIVITAMIN ORAL Take by mouth once daily. Gummies (Patient not taking: Reported on 11/26/2022) FOLIC ACID ORAL Take by mouth. Cholecalciferol, Vitamin D3, 5,000 unit tab Take 5,000 Units by mouth once daily. (Patient not taking: Reported on 11/26/2022) vmdqg-7n-rhf-epa-fish oil-D3 350 mg-400 mg- 1,000 unit cap Take by mouth. Takes a total of 5,000 daily (Patient not taking: Reported on 11/26/2022) Red Yeast Rice Extract 600 mg ORAL Cap Take by mouth. Take one(1) tablet two(2) times daily. (Patient not taking: Reported on 11/26/2022) Lecithin 400 mg ORAL Cap Take one(1) tablet daily. Glutamine (L-GLUTAMINE) 500 mg ORAL Cap Take one(1) tablet daily. (Patient not taking: Reported on 11/26/2022) VITAMIN C 500 MG ORAL TAB Take one(1) tablet daily. (Patient not taking: Reported on 01/11/2023) No current facility-administered medications on file prior to visit. Social History Social History Tobacco Use Smoking status: Never Smokeless tobacco: Never Vaping Use Vaping Use: Never used Substance Use Topics Alcohol use: No Drug use: No REVIEW OF SYSTEMS: as above Reviewed relevant PMHx, PSHx, Social Hx, current medications and allergies. Review of Symptoms REVIEW OF SYSTEMS See HPI. EXAM: BP 120/62 (BP Site: Left Arm, BP Position: Sitting, BP Cuff Size: Regular Adult) Pulse (!) 55 Resp 14 Wt 54.4 kg (120 lb) SpO2 98% BMI 25.08 kg/m General Appearance: Well appearing, alert, in no acute distress, well-hydrated, well nourished.. Skin: Skin color, texture, turgor normal, no suspicious rashes or lesions, Positives: laceration above L eye brow, well approximated with 1 suture noted. Bruising below eyelid and circular to lateral temporal area. Head: Normocephalic, no masses, lesions, + tenderness near area of bruising. Extremities: Positive findings: L wrist with minimal bruising. Full ROM, no tenderness. Health Maintenance List Pneumococcal Vaccine: 65+(1 - PCV) Never done RSV Vaccine(1 - 1-dose 60+ series) Never done Shingrix Vaccine(1 of 2) due on 11/03/2012 Influenza Vaccine(1) due on 11/02/2022 Covid-19 Vaccine(1) due on 04/24/2023 Diabetes Screening due on 08/02/2025 DTaP,Tdap,Td Vaccine(4 - Td or Tdap) due on 11/23/2032 Bone Density Screening Completed Spirometry Completed Colorectal Cancer Screening Discontinued Advance Directive Discussion Discontinued ASSESSMENT/PLAN: 1. Fall, subsequent encounter - ICD9: V58.89, E888.9, ICD10: W19.XXXD (primary diagnosis) Laceration well approximated and healing well. Put bacitracin ointment on area 1-2 x per day. Keep area/wound open to area, dry, and clean. RTO in 1 week for suture removal. - BACITRACIN ZINC 500 UNIT/GRAM TOPICAL OINTMENT 2. Urinary frequency - ICD9: 788.41, ICD10: R35.0 acute - UA positive for trace klever esterase only. - Send urine for culture - no antibiotic unless culture is positive. - let us know if symptoms worsen at all. - Patient education for prevention given - UA DIP, URINE (POC) - URINE CULTURE 3. Laceration of left eyebrow, subsequent encounter - ICD9: V58.89, 873.42, ICD10: S01.112D See above #1 RTO in 1 week, sooner if needed. Prescription instructions reviewed with patient as applicable. Potential red flag symptoms discussed with the patient. Reviewed appropriate action plan to take if red flag symptoms occur. Patient agreeable to treatment plan. Kandi Contreras APRN.KEVIN [address] [place] [address] documented in this encounter [facility] 01-20-2023 Miscellaneous Notes Patient calling with question about prophylactic antibiotics. Patient denies any new or worsening symptoms of which a provider is not aware: Yes. Patient states she had a fall 01/19/23 and has a small laceration above her eye. Was seen at [facility] and wound was cleaned and a suture placed. Denies any signs of infection. Questioning whether she needs prophylactic antibiotics since she has 2 knee replacements (most recent was done in 2020). Advised this is usually done for dental procedures, but not necessarily for other types of injuries. Advised to assess wound daily and to call back if any signs of infection , including fever, redness, increased pain, warmth or drainage. Verbalized understanding. Also discussed use of ice for 48 hours to her eye, which she states is quite bruised. documented in this encounter [facility] 01-19-2023 Hospital Discharge instructions Patient Education 01/19/2023 12:18:53 Head Injury (Adult) Head Injury (Adult) You have a head injury. It does not appear serious at this time. But symptoms of a more serious problem, such as a mild brain injury (concussion) or bruising or bleeding in the brain, may appear later. For this reason, you or someone caring for you will need to watch for the symptoms listed below. Once you re home, also be sure to follow any care instructions you re given. Home care Watch for the following symptoms Seek emergency medical care if you have any of these symptoms over the next hours to days: Headache Nausea or vomiting Dizziness Sensitivity to light or noise Unusual sleepiness or grogginess Trouble falling asleep Personality changes Vision changes Memory loss Confusion Trouble walking or clumsiness Loss of consciousness (even for a short time) Inability to be awakened Stiff neck Weakness or numbness in any part of the body Seizures General care If you were prescribed medicines for pain, use them as directed. Note: Don t take other medicines for pain without talking to your provider first. To help reduce swelling and pain, apply a cold source to the injured area for up to 20 minutes at a time. Do this as often as directed. Use a cold pack or bag of ice wrapped in a thin towel. Never apply a cold source directly to the skin. If you have cuts or scrapes as a result of your head injury, care for them as directed. For the next 24 hours (or longer, if instructed): oDon t drink alcohol or use sedatives or other medicines that make you sleepy. oDon t drive or operate machinery. oDon t do anything strenuous, such as heavy lifting or straining. oLimit tasks that require concentration. This includes reading, using a smartphone or computer, watching TV, and playing video games. oDon t return to sports or other activities that could result in another head injury. Follow-up care Follow up with your healthcare provider, or as directed. If imaging tests were done, they will be reviewed by a doctor. You will be told the results and any new findings that may affect your care. When to seek medical advice Call your healthcare provider right away if any of these occur: Pain doesn t get better or worsens New or increased swelling or bruising Fever of 100.4 F (38 C) or higher, or as directed by your provider Increased redness, warmth, drainage, or bleeding from the injured area Fluid drainage or bleeding from the nose or ears Any depression or bony abnormality in the injured area Persistent confusion or lethargy Bruising behind the ears or bruising around the eyes [id number] [employer]. [address] [place] [address]. All rights reserved. This information is not intended as a substitute for professional medical care. Always follow your healthcare professional's instructions. Follow Up Care 01/19/2023 11:57:28 With:EDENILSON NICHOLSON DO Address: [address] [facility] [place] [id number]- When:2-4 days [facility] 01-19-2023 Note Discharge Instructions Thank you for allowing [facility] to assist you with your healthcare needs. The following is important discharge information regarding your hospital visit. Diagnosis from Today's Visit Fall Head Laceration What to Do Next Instructions from Your Care Team No qualifying data available. Post Acute Orders No qualifying data available. You Need to Schedule the Following Appointments Follow Up with EDENILSON NICHOLSON DO When Within 2-4 days Where: [address] [facility] [place] [address]- Allergies No active allergies Medications Please ask your primary doctor or pharmacist before taking any other medication not listed, including over the counter drugs, herbal medications, vitamins and or supplements as they may interact with your home medications. Please take this list to your next doctor s visit. Bring all medications you take, including over the counter medications, herbals and other supplements with you to your doctor s visit. Patients and families are reminded to discard old lists and to update any records with all medication providers or retail pharmacies. Education Materials Head Injury (Adult) You have a head injury. It does not appear serious at this time. But symptoms of a more serious problem, such as a mild brain injury (concussion) or bruising or bleeding in the brain, may appear later. For this reason, you or someone caring for you will need to watch for the symptoms listed below. Once you re home, also be sure to follow any care instructions you re given. Home care Watch for the following symptoms Seek emergency medical care if you have any of these symptoms over the next hours to days: Headache Nausea or vomiting Dizziness Sensitivity to light or noise Unusual sleepiness or grogginess Trouble falling asleep Personality changes Vision changes Memory loss Confusion Trouble walking or clumsiness Loss of consciousness (even for a short time) Inability to be awakened Stiff neck Weakness or numbness in any part of the body Seizures General care If you were prescribed medicines for pain, use them as directed. Note: Don t take other medicines for pain without talking to your provider first. To help reduce swelling and pain, apply a cold source to the injured area for up to 20 minutes at a time. Do this as often as directed. Use a cold pack or bag of ice wrapped in a thin towel. Never apply a cold source directly to the skin. If you have cuts or scrapes as a result of your head injury, care for them as directed. For the next 24 hours (or longer, if instructed): oDon t drink alcohol or use sedatives or other medicines that make you sleepy. oDon t drive or operate machinery. oDon t do anything strenuous, such as heavy lifting or straining. oLimit tasks that require concentration. This includes reading, using a smartphone or computer, watching TV, and playing video games. oDon t return to sports or other activities that could result in another head injury. Follow-up care Follow up with your healthcare provider, or as directed. If imaging tests were done, they will be reviewed by a doctor. You will be told the results and any new findings that may affect your care. When to seek medical advice Call your healthcare provider right away if any of these occur: Pain doesn t get better or worsens New or increased swelling or bruising Fever of 100.4 F (38 C) or higher, or as directed by your provider Increased redness, warmth, drainage, or bleeding from the injured area Fluid drainage or bleeding from the nose or ears Any depression or bony abnormality in the injured area Persistent confusion or lethargy Bruising behind the ears or bruising around the eyes [id number] [employer] [place] [address], [place] [address]. All rights reserved. This information is not intended as a substitute for professional medical care. Always follow your healthcare professional's instructions. Additional Information VACCINATE! IT SAVES LIVES! Members of the community who have not yet received the COVID-19 vaccine and would like to receive it can visit one of [facility] vaccine clinics. There are many vaccine clinic locations within the [facility]. For locations and available times, please visit www.[email or web address].[place]gon.g [email or web address] It is important to note that some COVID mobile vaccine clinics are held outdoors and may be canceled in rainy or stormy conditions. To learn more about pediatric vaccinations (ages 5-11), we invite you to visit the [employer] webpage. https://www.for; to (do)s.org/pa ges/4889-Ccsum-Rerhshpmion-Freque uxaq-Lnhfl-Zkghxldkm.html To learn more about the COVID-19 vaccine, we invite you to visit the CDC website for a list of frequently asked questions. https://www.cdc.gov/coronavirus/2 019-ncov/vaccines/faq.html [employer] Patient Portal Access Instructions: Stay connected with your healthcare team and access your personal medical information anytime with the [facility] Patient Portal. If you would like a full copy of your medical records please contact the [facility] Medical Records Department Saturday through Saturday between 8a.m. and 4:30p.m. Please follow the directions below to access the portal: 1.Access the email account you provided upon registration to the hospital.2.Look for an invitation email from [facility].3.Open the email and access the invitation link: Accept Invitation to [facility].Fill in the required julio to create your account. Sign into [email or web address] with your username and password that you created in the above steps to stay up to date. You can then view a summary of results, a summary of your visits, and the ability to download your summaries to your computer or send the information securely to a physician. Remember that your healthcare information is confidential, so carefully consider who you will allow to register on the [facility] Patient Portal for access to your information. You can also access the [employer] Patient Portal on the [employer]. Simply click on Health Records under Health Data and then click on the [employer] logo. HOW TO SAFELY DISPOSE OF PRESCRIPTION MEDICATIONS Please use one of the following methods to safely dispose of your unused medications. 1.Use a drug disposal kit: the drug disposal pouch allows you to safely discard your old and unused drugs. Ask your nurse to give you one when you are discharged.2.Visit a local take-back location: Many local pharmacies and police departments have programs that collect old and unwanted prescription drugs. Call your local pharmacy or go to http://[employer]/6D9Fa9l to find one close to you.3.Make use of household items: Use cat litter or old coffee grounds to dispose medications if other options are not available. Mix your drugs with these household products, seal them in an airtight container and throw it into the garbage. Call [facility]: [phone] to be sure your drugs can be disposed of in this way. Some medicines may require a different approach.4.Never flush your medications down the toilet. IF YOU HAVE BEEN PRESCRIBED AN OPIOIDS FOR PAIN If you have been prescribed an opioid (such as hydrocodone, oxycodone or morphine), it is critical to understand the possible side effects and risks of opioid pain medications. Even when taken as directed, opioids can have several side effects including: Tolerance, meaning you might need to take more of a medication for the same pain relief. Nausea, vomiting and/or constipation. Sleepiness, dizziness, dry mouth, confusion, depression or itching. Physical dependence, meaning you have withdrawal symptoms when a medication is stopped ? this can develop within a few days. KNOW YOUR RESPONSIBILITIES It is important to know exactly how much and how often to take the opioid pain medications you are prescribed. Never take opioids in higher amounts or more often than prescribed. Do not combine opioids with alcohol or other drugs that cause drowsiness, such as benzodiazepines, also known as benzos, including diazepam and alprazolam, muscle relaxants or sleep aids. Never sell or share prescription opioids. This is illegal. Store opioids in a secure place and out of reach of others (including children, family, friends and visitors). The last page(s) of this document has been signed and retained as a CHART COPY [employer] Patient Education Materials Head Injury (Adult) Medication Leaflets My discharge plan and instructions have been reviewed and explained to me and I,ANAYA WILSON understand my current condition and have read and understand these discharge instructions. I have received a written copy of the plan/instructions. If I have questions, I am aware that I should contact my doctor. 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 Multiplanar reformatted images are provided for review. Automated exposure control, iterative reconstruction, and/or weight based adjustment of the mA/kV was utilized to reduce the radiation dose to as low as reasonably achievable. COMPARISON: None. HISTORY: ORDERING SYSTEM PROVIDED HISTORY: Reason for Exam: fall pain FINDINGS: BONES/ALIGNMENT: There is no acute fracture. DEGENERATIVE CHANGES: There is multilevel disc height loss seen from the levels of C3 through C7. The vertebral bodies of C3-C4-C5 are fused. There is grade 1 retrolisthesis of L3 on L4 as well as of L4 on L5. There is grade 1 anterolisthesis of C6 on C7 as well as of C7 on T1. Degenerative endplate changes are noted. Multilevel anterior osteophytes are seen. Multilevel facet arthropathy and uncovertebral joint hypertrophy is seen. The left-sided facets at C4-C5 are fused. There are varying degrees of neural foraminal stenosis appreciated. No high-grade central canal stenosis is noted. SOFT TISSUES: There is no prevertebral soft tissue swelling. IMPRESSION: No acute fracture with multilevel degenerative changes as described above. Interpreted by: Akhil Hardy MD Preliminary Report By: Akhil Hardy MD Electronically signed By Akhil Hardy MD Dictated Date: 01/19/2023 1:25:34 PM Prelim Date: 01/19/2023 1:32:00 PM Sign Date: 01/19/2023 1:32:00 PM Ordering Provider: [facility] 01-19-2023 Note ORIGINAL EXAMINATION: CT OF THE HEAD WITHOUT CONTRAST 01/19/2023 1:09 pm TECHNIQUE: CT of the head was performed without the administration of intravenous contrast. Automated exposure control, iterative reconstruction, and/or weight based adjustment of the mA/kV was utilized to reduce the radiation dose to as low as reasonably achievable. COMPARISON: None. HISTORY: ORDERING SYSTEM PROVIDED HISTORY: Reason for Exam: fall pain FINDINGS: BRAIN/VENTRICLES: There is no acute intracranial hemorrhage, mass effect or midline shift. No abnormal extra-axial fluid collection. The simeon-white differentiation is maintained without evidence of an acute infarct. There is no evidence of hydrocephalus. ORBITS: The visualized portion of the orbits demonstrate no acute abnormality. SINUSES: The visualized paranasal sinuses and mastoid air cells demonstrate no acute abnormality. SOFT TISSUES/SKULL: No acute abnormality of the visualized skull or soft tissues. IMPRESSION: No acute intracranial abnormality. Interpreted by: Akhil Hardy MD Preliminary Report By: Akhil Hardy MD Electronically signed By Akhil Hardy MD Dictated Date: 01/19/2023 1:21:57 PM Prelim Date: 01/19/2023 1:25:21 PM Sign Date: 01/19/2023 1:25:21 PM Ordering Provider: [facility] 01-17-2023 Miscellaneous Notes Patient and spouse notified of results and provider's instructions. Patient and spouse verbalizes understanding. Yi Jones RN Please inform patient that her MRI pancreas/biliary area of her abdomen showed IMPRESSION: CYSTIC LESION IN THE BODY OF THE PANCREAS WITH SEVERAL THIN SEPTATIONS. A FOLLOW-UP STUDY COULD BE OBTAINED IN 6 MONTHS TO ASSESS FOR ANY CHANGE IN SIZE. Would recommend this follow up MRI in 6 months. I have ordered this testing to reschedule Edenilson Nicholson DO documented in this encounter [facility] 01-14-2023 History of Present illness Narrative Associated Order(s): Large Joint Arthro/Inj: L knee joint Post-Procedure Diagnose(s): Status post total left knee replacement; Pain due to knee joint prosthesis, subsequent encounter Anaya comes today at our request for a left knee aspiration. We saw her last week. She has had 10 days of left knee pain and labs show an elevated CRP of 3.7 and elevated SED rate of 26. The left knee is a primary knee that has been doing well since 03/28/20 when it was pt in by Dr. Purdy. Large Joint Arthro/Inj: L knee joint Informed Consent Consent Obtained: Verbal [place] Protocol A moment to CARE was completed. SIGN IN Personnel directly involved with the procedure wore the appropriate PPE. Special Equipment: N/A Patient/Surrogate Stated/Verified: Patient name, Date of , Relevant allergies and Intended procedure TIME OUT Intended patient and procedure match the source document(s). Consent documented and matches the intended procedure. Relevant labs, photos, and/or imaging studies have been reviewed. Correct side/site marked and visible. Medications required for procedure verified. No fire risk assessment and interventions applicable. No implant(s) inserted. 01/14/2023 4:12 PM The procedure site was prepped in the usual sterile fashion. Site: L knee joint Aspirate: 5 mL blood-tinged sent for Synovasure analysis Anesthetics: 3 mL lidocaine (PF) 10 mg/mL (1 %) Outcome: Tolerated well, no immediate complications Post-injection instructions were reviewed with the patient and the patient voiced understanding of these instructions. SIGN OUT No instruments, equipment or retained foreign bodies applicable. Michael Del Castillo PA-C documented in this encounter [facility] 01-14-2023 Miscellaneous Notes Called patient to let her know appts are schedule and to confirm with me-phone kept ringing and ringing documented in this encounter [facility] 01-11-2023 History of Present illness Narrative CHIEF COMPLAINT: Anaya Wilson is a 82 year old female who presents today for follow up of left knee. HISTORY OF PRESENT ILLNESS: She notes pain is rapidly improving. Anaya states she had a week of left knee pain. She denies trauma or unusual activity. The pain did not keep her up at night and seemed to improve without treatment She notes no interval injury. She notes no new musculoskeletal or neurologic complaints. She notes currently no new alleviating or aggravating factors for this problem. Treatments so far have included medication (one flexeril). When the knee hurt the pain was anterior. REVIEW OF SYMPTOMS: Constitutional: patient denies any recent fever or significant change in weight Gastrointestinal: patient denies any current abdominal discomfort Musculoskeletal: as noted in the HPI Neurologic: patient denies any peripheral numbness or radiation of pain SOCIAL HISTORY: Tobacco Use: Never SOCIAL HISTORY: Tobacco Use: Never ALLERGIES: ALLERGIES Allergen Reactions Caffeine Codeine Darvocet A500 [Prop* Vomiting Demerol [Meperidine* Vomiting Entex [Phenylephrin* Ephedrine Other: See Comments Heart palpitations Griseofulvin Milk Containing Pro* Intolerance Nasal stuffiness Tramadol Other: See Comments Nausea, vomiting, dry heaves after carpal tunnel surgery Vicodin [Hydrocodon* Itching Zoloft [Sertraline * Mental Status Change Increased anxiety and feeling of depression. 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 Diverticulosis of colon (without mention of hemorrhage) Dry cough 05/23/2016 Ganglion of joint 07/16/2005 Generalized osteoarthrosis, unspecified site Hemorrhage of gastrointestinal tract, unspecified Hemorrhage of rectum and anus Hypertension Infection of left eye Irritable bowel syndrome Osteomalacia, unspecified Other and unspecified hyperlipidemia Pneumonia, organism unspecified(486) PONV (postoperative nausea and vomiting) Psoriatic arthritis (HCC) Rectocele 01/05/2011 Skin tear of lower leg without complication 05/23/2016 Sprain of unspecified site of sacroiliac region Unspecified constipation Urge incontinence mild PHYSICAL EXAMINATION: Patient's vitals and nursing notes were reviewed. Vitals: There were no vitals taken for this visit. General Appearance: Well appearing, alert, in no acute distress, well-hydrated, and well nourished Skin: Skin color, texture, turgor normal, no suspicious rashes or lesions noted Cardiovascular: pedal pulses and radial pulses normal, no signs of upper or lower extremity edema Respiratory: no respiratory distress, no audible wheezing, no labored breathing, symmetric thoracic excursion Musculoskeletal: Significant improvement in range of motion Knee Musculoskeletal Exam Gait Gait is normal. Inspection Leg length disparity: no discrepancy Left Erythema: none Effusion: none Alignment: normal Previous incision: anterior Incision: well-healed Incisional drainage: none Palpation Left Tenderness: present MCL: mild Quadriceps tendon: mild Range of Motion Left Active extension: -5 Active flexion: 120 Strength Left Left knee strength is normal. Instability Left Varus grade: mild mid flexion instability. Quad active test: 1+ IMAGING: Final results and radiologist's interpretation, available in the [facility] health record. Images were reviewed with the patient/family members in the office today. My personal interpretation of the performed imaging is Triathlon CR cemented knee in good position, well fixed. There does appear to be small lucencies under the anterior and medial tibial tray that were not seen in 2020. CLINICAL IMPRESSION / ASSESSMENT: (T84.84XA, Z96.659) Pain due to knee joint prosthesis, initial encounter ([facility]) (primary encounter diagnosis) (Z96.652) Status post total left knee replacement RECOMMENDATION / PLAN: We discussed the potential utilization of pursuing laboratory analysis to aid our diagnosis and treatment plan and ordered erythrocyte sedimentation rate and C-reative protein. If one or both are elevated we will bring Anaya back for a knee aspiration. Follow up: if symptoms persist or worsen Films prior to visit: No additional imaging warranted. Michael Del Castillo PA-C documented in this encounter [facility] 01-11-2023 History of Present illness Narrative Radiology Service Progress Note PATIENT NAME: Anaya Wilson DATE OF SERVICE: January 11, 2023 TIME: 7:29 AM PATIENT IDENTITY VERIFICATION COMPLETED USING TWO (2) IDENTIFIERS: Name and Date of confirmed by patient verbally. FALL SCREENING: Has the patient had 2 falls in the last year or 1 fall with injury or currently using an Ambulatory Assistive Device (Walker, Cane, Wheelchair, Crutches, etc.)? No PATIENT GENDER DATA: Female. status: : No status: NO. PATIENT RELEVANT IMPLANT DATA REVIEWED: Not Applicable RADIOLOGY DEPARTMENT: General X-ray: Exam(s) Completed: Lower Extremity X-Ray(s): Knee, AP / Lat / Merchant Left and Wt. Bearing PERIPHERAL IV DATA: Not applicable SIGNED BY: Shikha Alcazar January 11, 2023 7:29 AM Radiology Service Progress Note PATIENT NAME: Anaya Wilson DATE OF SERVICE: January 11, 2023 TIME: 8:22 AM PATIENT IDENTITY VERIFICATION COMPLETED USING TWO (2) IDENTIFIERS: Name and Date of confirmed by patient verbally. FALL SCREENING: Has the patient had 2 falls in the last year or 1 fall with injury or currently using an Ambulatory Assistive Device (Walker, Cane, Wheelchair, Crutches, etc.)? No PATIENT GENDER DATA: Female. status: : No status: NO. PATIENT RELEVANT IMPLANT DATA REVIEWED: Not Applicable RADIOLOGY DEPARTMENT: General X-ray: Exam(s) Completed: Lower Extremity X-Ray(s): Knee, AP / Lat / Merchant Left and Wt. Bearing PERIPHERAL IV DATA: Not applicable SIGNED BY: Shikha Alcazar January 11, 2023 8:22 AM documented in this encounter [facility] 01-09-2023 Miscellaneous Notes Called patient on 01/09 to let her know I scheduled pre ops and UDS for her on 04/23 documented in this encounter [facility] 01-02-2023 Miscellaneous Notes Called patient to schedule pre ops and post ops . Patient requested that I call her in a week to set up appointments. I did secure a UDS with Dr Zayas on 04/25 and with pre op consent as well. documented in this encounter [facility] 12-27-2022 History of Present illness Narrative Radiology Service Progress Note DATE OF SERVICE: December 27, 2022 TIME: 8:51 AM PATIENT IDENTITY VERIFICATION COMPLETED USING TWO (2) STANDARD IDENTIFIERS: Name and Date of confirmed by patient verbally. FALL SCREENING: Has the patient had 2 falls in the last year or 1 fall with injury or currently using an Ambulatory Assistive Device (Walker, Cane, Wheelchair, Crutches, etc.)? No PATIENT GENDER DATA: Female. status: : No status: NO. PATIENT RELEVANT IMPLANT DATA REVIEWED: Yes ALLERGIES: Reviewed and unchanged CONTRAST ALLERGY: NO. EXAM: MRI - CONTRAST TYPE: GROUP II PERIPHERAL IV DATA: Ambulatory: A peripheral IV was started in the Left antecubital site with a Angio cath: 22 gauge. RADIOLOGY DEPARTMENT: MR; Exam(s) Completed: Body: Pancreas/Biliary SIGNATURE: RT Bhargav(R) PATIENT NAME: Anaya Wilson DATE: December 27, 2022 TIME: 8:51 AM documented in this encounter [facility] 12-11-2022 Miscellaneous Notes Patient calls and notified of results. Patient verbalizes understanding. Armida Warren RN Left message for patient to return call to office Madeline Horn Cma Please let her know that her urine culture did not show a UTI. Angeline Monterroso APRN.CNP documented in this encounter [facility] 11-26-2022 History of Present illness Narrative Radiology Service Progress Note PATIENT NAME: Anaya Wilson DATE OF SERVICE: November 26, 2022 TIME: 2:06 PM PATIENT IDENTITY VERIFICATION COMPLETED USING TWO (2) IDENTIFIERS: Name and Date of confirmed by patient verbally. FALL SCREENING: Has the patient had 2 falls in the last year or 1 fall with injury or currently using an Ambulatory Assistive Device (Walker, Cane, Wheelchair, Crutches, etc.)? No PATIENT GENDER DATA: Female. status: : No status: NO. PATIENT RELEVANT IMPLANT DATA REVIEWED: Not Applicable RADIOLOGY DEPARTMENT: Bone Density PERIPHERAL IV DATA: Not applicable SIGNED BY: RT Donnell(R) November 26, 2022 2:06 PM documented in this encounter [facility] 11-26-2022 History of Present illness Narrative Surgica request placed for RA rectopexy and sacrocolpopexy on SaturdayMay 13 documented in this encounter [facility] 11-22-2022 Miscellaneous Notes SPECIALTY CARE COORDINATION FOLLOW-UP NOTE Spoke to Anaya. She says that she wants to have the surgery with Drs. Villalobos and Marquez. Explained that I would let them know and I will get back with her with a surgery date. She thanked me for the phone call. Signature Jenny Yun RN November 22, 2022 documented in this encounter [facility] 11-22-2022 Miscellaneous Notes SPECIALTY CARE COORDINATION FOLLOW-UP NOTE Unable to reach Anaya. Left a voice message to follow up from this week's office visit with Dr. Villalobos if Anaya is interested to schedule surgery with Drs. Villalobos and Marquez. Asked to call the office at [phone] to let us know. Signature Jenny Yun RN November 22, 2022 documented in this encounter [facility] 11-20-2022 History of Present illness Narrative Radiology Service Progress Note PATIENT NAME: Anaya Wilson DATE OF SERVICE: November 20, 2022 TIME: 3:47 PM PATIENT IDENTITY VERIFICATION COMPLETED USING TWO (2) IDENTIFIERS: Name and Date of confirmed by patient verbally. FALL SCREENING: Has the patient had 2 falls in the last year or 1 fall with injury or currently using an Ambulatory Assistive Device (Walker, Cane, Wheelchair, Crutches, etc.)? No PATIENT GENDER DATA: Female. status: : No status: NO. PATIENT RELEVANT IMPLANT DATA REVIEWED: Yes RADIOLOGY DEPARTMENT: CT; Exam(s) Completed: Chest PERIPHERAL IV DATA: Not applicable SIGNED BY: RT Jimmy(R) November 20, 2022 3:47 PM documented in this encounter [facility] 11-19-2022 History of Present illness Narrative COLORECTAL SURGERY Follow-up November 16, 2022 Chief complaint: rectal prolapse HPI: 82 yo woman with large rectocele. Small rectal prolapse Rectum came out only 3 times She has minimal symptoms, she only remembers when wipes , Otherwise prolapse does not bother her. She was seen 3 times, she was also seen in the combo clinic where she was offered surgery Physical Exam: Ht 147.3 cm (4' 10) Wt 52.2 kg (115 lb) BMI 24.04 kg/m General - awake, alert, no acute distress Abdominal - soft non tender non distended Anorectal: Perianal skin is intact. No erythema, induration or excoriation. No fissure, fistula or external hemorrhoids. Digital Rectal Exam: Anus: patulous Resting tone: WEAK Squeeze tone: WEAK Lemon Picker present: Yes Large rectocele, small full thickness prolapse Ok rest , no squeeze, closed anus Assessment Medical Decision Making: Assessment & Diagnosis: Anaya Wilson is a 82 year old female with large rectocele and rectal prolapse Data Reviewed: Tests & Documents Reviewed/ordered: Review of prior notes from chart I have independently interpreted: Defecography I have discussed Anaya Wilson's treatment plan and/or results with patient and her . Treatment plan: Dr Zayas-- urodynamics We again discussed with the patient and her elective surgery for prolapse. Possible worsening of symptoms after repair. Jenny will call her on to offer surgery date, if she still wants to do surgery . Will need a combo with Dr. Zayas date She keeps changing her mind if she wants surgery or not. I am giving her another few days to make a final decision Mellisa Villalobos DO Pelvic Floor Department of Colorectal Surgery Risk of morbidity, mortality and/or complications of treatment plan: moderate During this patient visit I have spent approximately 45 minutes out of 30 in counseling regarding treatment options and coordinating care. documented in this encounter [facility] 11-15-2022 Miscellaneous Notes Pt called and is notified of providers results and instructions. Pt voices understanding. Pt scheduled with Dr Nicholson on 12/05/22 for f/u. Nell Barnett, ROBERT Left message for patient to return call. Alyssa Bryson LPN ----- Message from Abigail Balderas APRN.SHIP KEEPER sent at 11/15/2022 7:39 AM EDT ----- Urine culture did not show any evidence of infection. She may continue to take antibiotic if it has been helpful. Recommend follow up with PCP to ensure hematuria has resolved-Dr. Nicholson has placed an order for a repeat UA to be done in 2-3 weeks. Abigail Balderas CNP documented in this encounter [facility] 11-14-2022 Instructions Edenilson Nicholson DO - 11/14/2022 10:51 AM EDT Recheck urine at lab in early December, this order is in your chart. documented in this encounter [facility] 11-14-2022 History of Present illness Narrative CC: Anaya Wilson is a 82 year old female who presents to the office for follow up HPI: Seen in office 3 months ago on 08/01/22 as below Rectal prolapse, has now had 2 events of rectal prolapse, once in Dec/Jan 2022 and then again in July 2022. She was seen in the EMERGENCY DEPARTMENT by Dr. Berman and had reduction of the prolapse. She was seen by Colorectal surgeon Dr. Villalobos and told that when she is ready for surgery that she can call to schedule. Anaya is not really wanting to do surgical repair of rectal prolapse if able to avoid this. HTN, well controlled, No CP or dyspnea or dizziness/LH or edema Memory changes, seems to be worsening with time, especially short term memory such as unsure if she took her medicaitons or what she ate for a prior meal. Also recently is noticing more word finding difficulty. No new headaches, does occasionally have some dizziness/LH, no syncope. No fevers or chills. No head injuries. Currently She was recently seen in yesterday for urinary symptoms. Diagnosed with UTI, awaiting urine culture results. She was started on Keflex medication. Already feels her symptoms are improving Rectal prolapse, present x months/years now. Has seen colorectal surgeon Dr. Villalobos. Feels she is ready to pursue potential surgical correction. It is becoming more bothersome to her daily life. Recently had dental procedure and has been holding her methotrexate for 3-4 weeks Hx of osteopenia.. last BMD about 2-2.5 years ago. Willing to repeat. Cough, present for the last few months. Was seen by 2-3 different providers and had steroids and antibiotic and CXR, still with symptoms, no fevers or chills or hemoptysis. 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 Diverticulosis of colon (without mention of hemorrhage) Dry cough 05/23/2016 Ganglion of joint 07/16/2005 Generalized osteoarthrosis, unspecified site Hemorrhage of gastrointestinal tract, unspecified Hemorrhage of rectum and anus Hypertension Infection of left eye Irritable bowel syndrome Osteomalacia, unspecified Other and unspecified hyperlipidemia Pneumonia, organism unspecified(486) PONV (postoperative nausea and vomiting) Psoriatic arthritis (HCC) Rectocele 01/05/2011 Skin tear of lower leg without complication 05/23/2016 Sprain of unspecified site of sacroiliac region Unspecified constipation Urge incontinence mild PAST SURGICAL HISTORY Procedure Laterality Date ARTHRP KNE CONDYLE&PLATU MEDIAL&LAT COMPARTMENTS Right 06/03/2017 Knee replacement, total COLONOSCOPY 05/10/2022 rectal mass COLONOSCOPY FLX DX W/COLLJ SPEC WHEN PFRMD 04/20/2002 Colonoscopy COLONOSCOPY FLX DX W/COLLJ SPEC WHEN PFRMD 07/25/2011 Colonoscopy EYE SURGERY HX JOINT REPLACEMENT HX NEUROPLASTY &/TRANSPOS MEDIAN NRV CARPAL TUNNE 1979 Carpal tunnel decomp b/l hands NEUROPLASTY &/TRANSPOS MEDIAN NRV CARPAL TUNNE 12/18/2011 RIGHT PAST SURGICAL HISTORY OF Left laser eye surgery for glaucoma SIGMOIDOSCOPY FLX DX W/COLLJ SPEC BR/WA IF PFRMD 06/23/2007 TOTAL ABDOMINAL HYSTERECT W/WO RMVL TUBE OVARY 1988 RUBI/BSO for fibroids and bleeding TOTAL KNEE REPLACEMENT Left 03/28/2020 VAGINAL HYSTERECTOMY Current Outpatient Medications Medication Sig cephALEXin (KEFLEX) 500 mg capsule Take 1 capsule by mouth twice daily for 7 days. methotrexate 2.5 mg tablet 2.5 mg tablet, takes 7 tablets every Saturday. Hold Saturday.8 dose as took dose early on October 05, 2022. To resume weekly dosage on Sunday October 16, 2022. benzonatate (TESSALON PERLE) 100 mg capsule Take 2 capsules by mouth three times daily as needed. loratadine (CLARITIN) 10 mg tablet Take 1 tablet by mouth once daily. FLUoxetine (PROZAC) 10 mg capsule Take 1 capsule by mouth once daily. lisinopril (ZESTRIL) 10 mg tablet Take 1 tablet by mouth once daily. Take an extra 1/2 tablet (5 mg) if BLOOD PRESSURE is 140/90 or greater meloxicam (MOBIC) 15 mg tablet Take 1 tablet by mouth once daily. hydrocortisone (ANUSOL-HC) 25 mg suppository 1 Suppository by RECTAL route twice daily as needed (hemorrhoids/rectal pain). amitriptyline (ELAVIL) 10 mg tablet Take 1 tablet by mouth daily at bedtime. methotrexate 2.5 mg tablet Take 6 tablets once weekly,on polyethylene glycol 3350 (MIRALAX ORAL) Take 1 Cap-Full by mouth once daily as needed. fluorometholone (FML LIQUID FILM) 0.1 % ophthalmic suspension Use 1 Drop in both eyes once daily. Azelaic Acid (FINACEA) 15 % gel Apply to affected area once daily. multivitamin with minerals (VISION/OPTIGEN) tablet Take 1 tablet by mouth once daily. CALCIUM/MAGNESIUM (CALCIUM AND MAGNESIUM ORAL) Take 3 capsules by mouth twice daily. BIOTIN ORAL Take by mouth once daily. MULTIVITAMIN ORAL Take by mouth once daily. Gummies FOLIC ACID ORAL Take by mouth. Cholecalciferol, Vitamin D3, 5,000 unit tab Take 5,000 Units by mouth once daily. lpvjy-7z-mah-epa-fish oil-D3 350 mg-400 mg- 1,000 unit cap Take by mouth. Takes a total of 5,000 daily Red Yeast Rice Extract 600 mg ORAL Cap Take by mouth. Take one(1) tablet two(2) times daily. Lecithin 400 mg ORAL Cap Take one(1) tablet daily. Glutamine (L-GLUTAMINE) 500 mg ORAL Cap Take one(1) tablet daily. VITAMIN C 500 MG ORAL TAB Take one(1) tablet daily. No current facility-administered medications for this visit. ALLERGIES Allergen Reactions Caffeine Codeine Darvocet A500 [Prop* Vomiting Demerol [Meperidine* Vomiting Entex [Phenylephrin* Ephedrine Other: See Comments Heart palpitations Griseofulvin Milk Containing Pro* Intolerance Nasal stuffiness Tramadol Other: See Comments Nausea, vomiting, dry heaves after carpal tunnel surgery Vicodin [Hydrocodon* Itching Zoloft [Sertraline * Mental Status Change Increased anxiety and feeling of depression. Started in 2005, not noted then Social History Tobacco Use Smoking status: Never Smokeless tobacco: Never Vaping Use Vaping Use: Never used Substance Use Topics Alcohol use: No Drug use: No ROS: See HPI PE: BP 120/64 Pulse 60 Temp (Src) 97.1 (Left Tympanic) Resp 16 Wt 116 lb (52.6kg) Gen: A&OX3, NAD, non-toxic appearing HEENT: PERRLA, EOMs intact b/l, nares without drainage, pharynx without erythema, exudate, lesions, or drainage. Uvula midline. Neck: No LAD, no thyromegaly, no meningismus. CV: RRR, no murmur Lungs: mildly diminished breath sounds in bases and scattered rales, no distress, coughing dry intermittently Skin: No rashes, lesions, or wounds on exposed skin. Normal BS, no obvious abdominal masses, normal BS No edema legs, normal peripheral pulses ASSESSMENT/PLAN: 1. Recurrent UTI (urinary tract infection) - ICD9: 599.0, ICD10: N39.0 (primary diagnosis) recurrent - UA positive for klever esterase, hematuria, and proteinuria - Send urine for culture - Patient education for prevention given Continue keflex, just started on this yesterday Recheck urine in 2-3 weeks as ordered. - URINE CULTURE - URINALYSIS, WITH MICROSCOPIC 2. Osteopenia, senile - ICD9: 733.90, ICD10: M85.80 - set up for BMD AP Spine and Hip Unilateral - Reviewed the need for Calcium and Vitamin D supplements and weight bearing exercise as tolerated - DXA-AXIAL SKELETON 3. Chronic cough - ICD9: 786.2, ICD10: R05.3 CXR was normal. Has been seen by 2-3 different providers, she is on methotrexate which has pulm toxicity risk by specialist. Recommend further testing with CT chest and consideration of PFTs as well. - CT CHEST WO IVCON 4. Rales - ICD9: 786.7, ICD10: R09.89 CXR was normal. Has been seen by 2-3 different providers, she is on methotrexate which has pulm toxicity risk by specialist. Recommend further testing with CT chest and consideration of PFTs as well. - CT CHEST WO IVCON 5. Psoriatic arthritis (HCC) - ICD9: 696.0, ICD10: L40.50 CXR was normal. Has been seen by 2-3 different providers, she is on methotrexate which has pulm toxicity risk by specialist. Recommend further testing with CT chest and consideration of PFTs as well. F/u with Social Media Content Specialist for care/treatment 6. Chronic obstructive pulmonary disease, unspecified COPD type (HCC) - ICD9: 496, ICD10: J44.9 See above 7. Rectal prolapse - ICD9: 569.1, ICD10: K62.3 F/u with Dr. Villalobos colorectal surgeon to consider intervention Edenilson Nicholson DO Return if no improvement. Follow up with Edenilson Nicholson DO. To ER if develops chest pain, shortness of breath Discussed risks, benefits, alternatives, and potential side effects of medications. Patient/Guardian expressed understanding and agreed with the plan. See patient instructions. Edenilson Nicholson DO [id number] [place] [address] documented in this encounter [facility] 11-13-2022 History of Present illness Narrative Subjective HPI A nontoxic appearing female presents to urgent care with chief complaint of possible UTI. Duration of symptoms 1 day. Associated symptoms dysuria, frequency, and urgency. Patient has history of UTIs in past with similar signs and symptoms. Patient denies the use of any [id number] medications or home remedies for symptom management. Patient states pain is a 3/10. Patient denies any fevers, flank pain, abdominal pain, nausea, vomiting, vaginal discharge, or urological abnormalities. Past medical history prescription medication use and labs reviewed. 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 Diverticulosis of colon (without mention of hemorrhage) Dry cough 05/23/2016 Ganglion of joint 07/16/2005 Generalized osteoarthrosis, unspecified site Hemorrhage of gastrointestinal tract, unspecified Hemorrhage of rectum and anus Hypertension Infection of left eye Irritable bowel syndrome Osteomalacia, unspecified Other and unspecified hyperlipidemia Pneumonia, organism unspecified(486) PONV (postoperative nausea and vomiting) Psoriatic arthritis (HCC) Rectocele 01/05/2011 Skin tear of lower leg without complication 05/23/2016 Sprain of unspecified site of sacroiliac region Unspecified constipation Urge incontinence mild PAST SURGICAL HISTORY Procedure Laterality Date ARTHRP KNE CONDYLE&PLATU MEDIAL&LAT COMPARTMENTS Right 06/03/2017 Knee replacement, total COLONOSCOPY 05/10/2022 rectal mass COLONOSCOPY FLX DX W/COLLJ SPEC WHEN PFRMD 04/20/2002 Colonoscopy COLONOSCOPY FLX DX W/COLLJ SPEC WHEN PFRMD 07/25/2011 Colonoscopy EYE SURGERY HX JOINT REPLACEMENT HX NEUROPLASTY &/TRANSPOS MEDIAN NRV CARPAL TUNNE 1979 Carpal tunnel decomp b/l hands NEUROPLASTY &/TRANSPOS MEDIAN NRV CARPAL TUNNE 12/18/2011 RIGHT PAST SURGICAL HISTORY OF Left laser eye surgery for glaucoma SIGMOIDOSCOPY FLX DX W/COLLJ SPEC BR/WA IF PFRMD 06/23/2007 TOTAL ABDOMINAL HYSTERECT W/WO RMVL TUBE OVARY 1988 RUBI/BSO for fibroids and bleeding TOTAL KNEE REPLACEMENT Left 03/28/2020 VAGINAL HYSTERECTOMY ALLERGIES Caffeine, Codeine, Darvocet A500 [Propoxyphene N-Acetaminophen], Demerol [Meperidine (Pf)], Entex [Phenylephrine-Guaifenesin], Ephedrine, Griseofulvin, Milk Containing Products (Dairy), Tramadol, Vicodin [Hydrocodone-Acetaminophen], and Zoloft [Sertraline Hcl] MEDICATIONS loratadine (CLARITIN) 10 mg tablet Take 1 tablet by mouth once daily. FLUoxetine (PROZAC) 10 mg capsule Take 1 capsule by mouth once daily. lisinopril (ZESTRIL) 10 mg tablet Take 1 tablet by mouth once daily. Take an extra 1/2 tablet (5 mg) if BLOOD PRESSURE is 140/90 or greater meloxicam (MOBIC) 15 mg tablet Take 1 tablet by mouth once daily. amitriptyline (ELAVIL) 10 mg tablet Take 1 tablet by mouth daily at bedtime. methotrexate 2.5 mg tablet Take 6 tablets once weekly,on Azelaic Acid (FINACEA) 15 % gel Apply to affected area once daily. FOLIC ACID ORAL Take by mouth. Lecithin 400 mg ORAL Cap Take one(1) tablet daily. methotrexate 2.5 mg tablet 2.5 mg tablet, takes 7 tablets every Saturday. Hold Saturday.8 dose as took dose early on October 05, 2022. To resume weekly dosage on Sunday October 16, 2022. benzonatate (TESSALON PERLE) 100 mg capsule Take 2 capsules by mouth three times daily as needed. (Patient not taking: Reported on 11/13/2022) hydrocortisone (ANUSOL-HC) 25 mg suppository 1 Suppository by RECTAL route twice daily as needed (hemorrhoids/rectal pain). (Patient not taking: Reported on 10/12/2022) polyethylene glycol 3350 (MIRALAX ORAL) Take 1 Cap-Full by mouth once daily as needed. (Patient not taking: No sig reported) fluorometholone (FML LIQUID FILM) 0.1 % ophthalmic suspension Use 1 Drop in both eyes once daily. multivitamin with minerals (VISION/OPTIGEN) tablet Take 1 tablet by mouth once daily. (Patient not taking: No sig reported) CALCIUM/MAGNESIUM (CALCIUM AND MAGNESIUM ORAL) Take 3 capsules by mouth twice daily. BIOTIN ORAL Take by mouth once daily. (Patient not taking: No sig reported) MULTIVITAMIN ORAL Take by mouth once daily. Gummies (Patient not taking: No sig reported) Cholecalciferol, Vitamin D3, 5,000 unit tab Take 5,000 Units by mouth once daily. (Patient not taking: Reported on 06/27/2022) yzctg-8z-dbr-epa-fish oil-D3 350 mg-400 mg- 1,000 unit cap Take by mouth. Takes a total of 5,000 daily Red Yeast Rice Extract 600 mg ORAL Cap Take by mouth. Take one(1) tablet two(2) times daily. (Patient not taking: No sig reported) Glutamine (L-GLUTAMINE) 500 mg ORAL Cap Take one(1) tablet daily. VITAMIN C 500 MG ORAL TAB Take one(1) tablet daily. (Patient not taking: No sig reported) FAMILY HISTORY Problem Relation Age of Onset Heart Mother CHF Cancer Father prostate Psychiatry Father Cancer Brother No Known Problems Daughter No Known Problems Daughter No Known Problems Daughter Breast Cancer Maternal Aunt Social History Tobacco Use Smoking status: Never Smokeless tobacco: Never Vaping Use Vaping Use: Never used Substance Use Topics Alcohol use: No Drug use: No BP 92/64 Pulse 68 Temp 36.7 C (98 F) Resp 16 Wt 54.9 kg (121 lb) SpO2 100% BMI 24.44 kg/m Review of Systems Constitutional: Negative for chills, fever and malaise/fatigue. HENT: Negative for congestion, ear discharge, ear pain, sinus pain and sore throat. Eyes: Negative for blurred vision, pain, discharge and redness. Respiratory: Negative for cough, hemoptysis, sputum production, shortness of breath, wheezing and stridor. Cardiovascular: Negative for chest pain. Gastrointestinal: Negative for abdominal pain, diarrhea, nausea and vomiting. Genitourinary: Positive for dysuria, frequency and urgency. Negative for flank pain and hematuria. Musculoskeletal: Negative for myalgias. Skin: Negative for itching and rash. Neurological: Negative for dizziness and headaches. Objective Physical Exam Constitutional: General: She is not in acute distress. Appearance: She is not diaphoretic. HENT: Head: Normocephalic. Jaw: No trismus, tenderness, swelling or pain on movement. Mouth/Throat: Mouth: Mucous membranes are moist. Pharynx: Oropharynx is clear. Uvula midline. No pharyngeal swelling, oropharyngeal exudate, posterior oropharyngeal erythema or uvula swelling. Eyes: Conjunctiva/sclera: Conjunctivae normal. Pupils: Pupils are equal, round, and reactive to light. Cardiovascular: Rate and Rhythm: Normal rate and regular rhythm. Heart sounds: Normal heart sounds. Pulmonary: Effort: Pulmonary effort is normal. No tachypnea, accessory muscle usage or respiratory distress. Breath sounds: Normal breath sounds. No stridor. No wheezing, rhonchi or rales. Abdominal: General: There is no distension. Palpations: Abdomen is soft. Tenderness: There is abdominal tenderness in the suprapubic area. There is no right CVA tenderness, left CVA tenderness, guarding or rebound. Musculoskeletal: Cervical back: Normal range of motion. No edema or erythema. No pain with movement. Normal range of motion. Skin: General: Skin is warm and dry. Neurological: Mental Status: She is alert and oriented to person, place, and time. ASSESSMENT/PLAN: 1. Urinary frequency - ICD9: 788.41, ICD10: R35.0 - UA DIP, URINE (POC) - URINE CULTURE Blood and leukocytes noted on urine dip. Previous positive urine culture. Will be placed on Keflex. Tolerated this antibiotic in the past. Follow-up with urology repeat recurrent UTIs. Patient was educated on supportive therapies. Patient will follow up with primary care provider as needed. Patient was instructed to immediately proceed to emergency room for any new, worsening, or symptoms lasting longer than anticipated. The patient's clinical presentation is otherwise unremarkable at this time. Based on exam and clinical finding, the patient is stable for discharge. Plan of care was discussed with patient. Patient verbalizes understanding and agrees to plan of care. This note was generated using [employer] software. It may contain errors in wording, punctuation, or spelling Johnie Aguirre APRN.SHIP KEEPER documented in this encounter [facility] 11-07-2022 Miscellaneous Notes Patient has been identified by name and date of : Yes, Armida Warren RN Date 11/07/2022 Time 3: Patient phones for refill(s): Requested Prescriptions Pending Prescriptions Disp Refills amoxicillin (AMOXIL) 500 mg capsule 4 capsule 1 Sig: Take 4 capsules by mouth one time only for 1 dose. Take 1 hour prior to appointment Date of last office visit with pcp: 10/12/2022 Future appt: 11/14/2022 Last 2 Encounter Wt Readings: Date: Wt: 10/12/2022 52.6 kg (116 lb) 09/25/2022 51.7 kg (114 lb) Previous labs/tests for medication: Blood Pressure: BUN (mg/dL) Date Value 08/02/2022 19 04/19/2021 11 Sodium (mmol/L) Date Value 08/02/2022 136 04/19/2021 138 Last 1 Encounter BP Readings: Date: BP: 10/12/2022 110/62 Liver Function: ALT (U/L) Date Value 08/02/2022 13 04/19/2021 75 AST (U/L) Date Value 08/02/2022 18 04/19/2021 37 Please advise. Thank you. Armida Warren RN documented in this encounter [facility] 10-12-2022 Instructions Cristhian Rodney PA-C - 10/12/2022 10:40 AM EDT Prednisone as directed if symptoms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 worsens, will plan to reassess at medication recheck appointment in 4-6 weeks. 3. Pain of right lower extremity - ICD9: 729.5, ICD10: M79.604 Continue ice/heat. Voltaren gel. Light massage following heat to decrease muscle tension. - DICLOFENAC 1 % TOPICAL GEL Angeline Monterroso APRN.CNP Greater than 50% of 43-minute visit spent face to face with patient in counseling and education. TEACHING PROVIDER (Physician/PA/PLEASURE CRAFT SAILOR) NOTE OF PERSONAL INVOLVEMENT IN CARE: I have personally seen and examined the patient and performed the medical decision-making components. I have reviewed the Advanced Practice Registered Nurse (PLEASURE CRAFT SAILOR) Student's documentation and verified the findings in the note as written. Any additions or changes are noted in bold/italics. Signature: Angeline Monterroso Date: 07/02/2022 Time: 6:11 PM documented in this encounter [facility] 06-22-2022 Miscellaneous Notes Noted, thank you. Angeline Monterroso APRN.SHIP KEEPER Patient calls to report increased anxiety. Nurse triage completed. Protocol recommends see provider within 2 weeks. Patient agreeable. Appointment scheduled for 06/27/2022 per patient request. Care advice reviewed. Patient verbalizes understanding. Reason for Disposition [1] Symptoms of anxiety or panic attack AND [2] is a chronic symptom (recurrent or ongoing AND present > 4 weeks) Answer Assessment - Initial Assessment Questions 1. CONCERN: Patient reports that she has had increased anxiety and feeling of overwhelmed. 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 2. ANXIETY SYMPTOMS: Anxious and overwhelmed. 3. ONSET: Weeks 4. SEVERITY: Moderate 5. FUNCTIONAL IMPAIRMENT: Not affecting her activities. 6. HISTORY: Yes, medication to assist. 7. RISK OF HARM - SUICIDAL IDEATION: No 8. TREATMENT: Patient takes elavil at bedtime for depression/anxiety which has been helpful. 9. TREATMENT - THERAPIST: No 10. POTENTIAL TRIGGERS:None reported. 10. PATIENT SUPPORT: , daughter, and granddaughter. 11. OTHER SYMPTOMS: Depression. Protocols used: Anxiety and Panic [id number] documented in this encounter [facility] 06-16-2022 Miscellaneous Notes I have communicated my name and active licensure. The patient's identity and physical location were verified at the time of this visit. Either the patient or their legal dental sales representative has been informed of the risks and benefits of -- and alternatives to -- treatment through a remote evaluation and consents to proceed with the evaluation remotely. I had a virtual visit with Ms. Wilson today for follow up. UPDATED HISTORY: Anaya Wilson is a 82 year old female with rectocele and fecal incontinence and possible rectal prolapse. 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 She had rectal prolapse come out once , it was easily reduced in ED in [place] Data Reviewed: Tests & Documents Reviewed/ordered: Review of prior notes from chart I have independently interpreted: Defecography I have discussed Anaya Wilson's treatment plan and/or results with patient and her . Treatment plan: Patient was seen in combined pelvic floor clinic with urogynecology. She was offered a combined repair of pelvic organ prolapse . She is very hesitant about any surgery , she is minimally bothered by her symptoms . We again discussed elective nature of surgery , that Marquez Sams and I can tuck everything up but it will not fix her descended perineum or incontinence . She will think about her options and let me know if she want to proceed with surgery . At this time continue conservative management Mellisa Villalobos DO Pelvic Floor Department of Colorectal Surgery documented in this encounter [facility] 06-09-2022 Miscellaneous Notes Patient has been identified by name and date of : Yes Last office visit in this department: 04/24/2022 RX INSTRUCTIONS: Patient state dosage should be 40 mg once daily Patient aware RX will be sent to pharmacy. No need to notify patient. Patient phones requesting refills as follows: Requested Prescriptions Pending Prescriptions Disp Refills famotidine (PEPCID) 10 mg tablet Sig: Take 1 tablet by mouth twice daily. Please review and advise. Sarah Delgadillo Pss documented in this encounter [facility] 05-22-2022 Miscellaneous Notes Pt calls to report she keeps atb on hand for when she has to go to the dentist for a procedure. Pt reports she is out of atb and would like a new rx. Patient has been identified by name and date of : Yes Requested Prescriptions Pending Prescriptions Disp Refills amoxicillin (AMOXIL) 500 mg capsule 4 capsule 1 Sig: Take 4 capsules by mouth one time only for 1 dose. Take 1 hour prior to appointment RX INSTRUCTIONS: Patient aware RX will be sent to pharmacy. No need to notify patient. Taty Aguilar LPN documented in this encounter [facility] 05-22-2022 Miscellaneous Notes SPECIALTY CARE COORDINATION FOLLOW-UP NOTE Spoke to Jose Guadalupe, . He stated that she was not available. Explained the reason for the call was to understand her concerns and discuss surgery if still interested. He stated that they had seen her wireless watcher (Dr. Rivas) and she had a colonoscopy. Explained that according to Dr. Villalobos that it was not a mass but from her chronic prolapse. Discussed having a virtual with Dr. Villalobos instead of a in person visit which Dr. Villalobos would call her on 06/15 at 1:30 pm to further discuss the results and surgery. He accepted a virtual visit. All questions answered. He thanked me for the phone call. Signature Jenny Yun RN May 22, 2022 documented in this encounter [facility] 05-22-2022 History of Present illness Narrative [facility] Enrollment Provider Action/FYI: H@H Patient referred by: [facility] Vian[facility] Contact made with patient: No - 2nd attempt to reach patient, left another message: Hi my name is Dimple Veras RN and I am calling from the [facility] on behalf of your PCP, Edenilson Nicholson DO. We are excited to share with you a new program to help you manage your health. Please call me back at . I hope you can take the time to speak with me. (Keep encounter open for additional two business days in case patient calls back. Close encounter if no response by end of second business day) Closing: Could not reach the patient after two attempted outreaches. Combination Technician to retry patient in one week. END OUTREACH [facility] Enrollment Provider Action/FYI: H@H Patient referred by: [facility] V[facility] Contact made with patient: No - Left Message: Hi my name is Dimple Veras RN and I am calling from the [facility] on behalf of your PCP, Edenilson Nicholson DO. We are excited to share with you a new program to help you manage your health. Please call me back at between the hours of 8am-5pm Saturday-Saturday. You will receive another phone call from me within the next two business days. I hope you can take the time to speak with me. (Keep encounter open and attempt 2nd outreach in two business days from today) END OUTREACH documented in this encounter [facility] 05-10-2022 Nurse Note Patient arrived laying on left side. Patient states she is having 5/10 abdominal pain. Patient encouraged to belch and pass gas. Abdomen appears to be nondistended and soft to palpation. documented in this encounter [facility] 05-10-2022 History and physical note Images from the original note were not included. COLORECTAL SURGERY Follow-up April 16, 2022 Chief complaint: Constipation HPI: Anaya Wilson is a 82 year old F who presents after having a rectal prolapse in December. She takes Miralax 2-3 times a month. Sometimes she strains. Takes smooth move tea. Bms every few days - pellets or little strings. Does not need to strain. Drains mucous Urinary incontinence , no issues with fecal incontinence, not sure if able to control flatus Last colonoscopy was 12 years ago. She has pressure in lower abdomen when need to defecate. Denies pressure in vagina. States she has rectocele, feels bulging in vagina. She has 3 daughters. She has some urine leakage with valsalva. No prior pelvic or abdominal surgery Colonoscopy Report 07/25/11 diverticulosis Looping of colon Manometry : Average Pressure Interpretation Rest: 27 mmHg This is below normal range. Normal range is 35-50 mmHg. Squeeze: 96 mmHg This is within normal range. Normal range is 75 - 100 mmHg. There is appropriate incremental change between resting and squeeze pressures which can indicate good pelvic floor movement with squeeze. Sensory: Sensation Volume First sensation : 38 mL / Normal Range: 40-80 mL First urge to defecate: 55 mL / Normal Range: 80-120 mL Maximum tolerable volume: 90 mL / Normal Range: 120-180 mL Recto-anal inhibitory reflex: Yes, at 45 mL air Balloon expulsion: Yes This exhibit hyperacute rectal sensation with at least 2/3 sensory tests. A recto-anal inhibitory reflex (RAIR) was present. This is a normal reflex. EMG Recruitment: EMG recruitment was performed. The patient shows a normal increase in activity with squeeze, and a paradoxic increase in activity with valsalva. This indicates abnormal pelvic floor movement, which can be indicative of poor pelvic floor coordination secondary to pelvic floor dyssynergia or pelvic organ prolapse. Defecography : RESULT: Initiation and ease of evacuation: Incontinent of contrast, limiting evaluation. Change in anorectal angle during defecation: Cannot evaluate due to incontinence and lack of contrast within the rectum. Development of rectocele: Cannot evaluate due to incontinence and lack of contrast within the rectum. Widening of rectovaginal septum: Enterocele: None Sigmoidocele: Full sigmoidocele even at rest, bulging the vagina anteriorly. Rectal intussusception: Probable full prolapse, although poorly evaluated due to incontinence and lack of contrast within the rectum. Post-evacuation recoil: Normal recoil to original position Vaginal length/support: Maintained length and support Physical Exam: Ht 147.3 cm (4' 10) Wt 52.2 kg (115 lb) BMI 24.04 kg/m General - awake, alert, no acute distress Abdominal - Soft, NTTP, non distended, no guarding, -ve peritoneal signs. Anorectal: Perianal skin is intact. No erythema, induration or excoriation. No fissure, fistula or external hemorrhoids. Digital Rectal Exam: Anus: patulous Resting tone: WEAK Squeeze tone: WEAK Lemon Picker present: Yes Large rectocele and enterocele Descended perineum , weak pelvic floor Assessment Medical Decision Making: Assessment & Diagnosis: Anaya Wilson is a 82 year old female with rectal prolapse. Data Reviewed: Tests & Documents Reviewed/ordered: Review of prior notes from chart I have independently interpreted: CT Abdomen, Defecography I have discussed Anaya Wilson's treatment plan and/or results with patient . Treatment plan: Colonoscopy is ordered Will bring the patient to the multidisciplinary pelvic floor clinic for consideration of combined repair with Dr. Marquez Villalobos DO UPDATED HISTORY AND PHYSICAL EXAMINATION SERVICE DATE: 05/10/2022 SERVICE TIME: 9:48 AM PHYSICAL EXAM MUST BE COMPLETED ON ADMISSION The History and Physical (completed in the past 30 days) has been reviewed and the patient has been examined. The contents accurately reflect the patient's condition with the following additions or revisions since the H&P was completed. Examination indicates no changes. This H&P can be found in the attached. SIGNATURE: Owen Rivas III, MD PATIENT NAME: Anaya Wlison DATE: May 10, 2022 TIME: 9:48 AM documented in this encounter [facility] 05-08-2022 Instructions Mellisa Villalobos DO - 05/08/2022 11:48 AM EST Robotic Ventral Rectopexy Dr. Mellisa Villalobos What is a robotic ventral rectopexy? The term rectopexy refers to an operation in which the rectum (the part of the bowel nearest the anus) is put back into its normal position in the pelvis. One of the most common reasons for patients to undergo this surgery is external rectal prolapse (bowel coming out through the anus). Another reason is internal prolapse or intussusception, when the rectum collapses in on itself, without coming out of the anus. This collapse or prolapse may cause obstructed defecation syndrome (ODS), which causes a sensation of a blockage in the bowel, difficulty in passing stool and prolonged (often unsuccessful) visits to the toilet. Internal rectal prolapse sometimes also causes fecal incontinence (when you are unable to hold a bowel movement in). This surgery is also occasionally performed for rectoceles. What tests are necessary before surgery? This can vary depending on symptoms and severity of prolapse. Most commonly, anorectal physiology studies and defecography x-ray is performed at our [facility]. This test shows what happens internally in the pelvis during defecation. Thus, the movement of the rectum, vagina and pelvic floor muscles can be seen during defecation. What does the surgery involve? A robotic ventral rectopexy is performed by a colorectal surgeon in the operating room. The patient is under general anesthesia. Five small incisions (8mm each) are made in the abdomen to allow the surgeon to operate in the pelvis using the surgical robot. The bowel is pulled out of the pelvis and a piece of sterile mesh is sewn in place along the front wall of the rectum and the back wall of the vagina to provide support in the pelvis and prevent collapse and prolapse of these organs. Once the mesh is appropriately secured in place, it is covered with the natural lining of tissue in the pelvis so it does not come in contact with any other organs in the abdomen. If there is significant prolapse of the bladder, uterus or front of the vagina, then another surgeon may perform additional mesh placement to support these organs. Vidhi.Thai J of Surg 2004;91:1500-5. What is the recovery from a robotic ventral rectopexy? After the surgery, the patient remains in the hospital for 1-2 nights. A urinary catheter is placed in the operating room and remains in place for 1 day, typically the morning after surgery. Intravenous fluids are given to provide hydration until the patient feels comfortable eating and drinking. Pain medication is also given as needed. Most patients do not require a lot of pain medication after this surgery. Patients are able to get out of bed and walk a few hours after surgery. It may take a few days for the intestines to wake up and begin working again after surgery. Passing flatus and stool is a good sign that the intestines are starting to work again. It may take several days for the stools to become mostly solid, and several weeks for bowel habits to follow a normal and reliable pattern. Bowel medications may be necessary after surgery to avoid straining and having firm stools. Heavy lifting (>10 lbs) and strenuous physical activity should be avoided for 6 weeks. Excess strain on the pelvic floor muscles can delay healing. You may be ready to return to work or drive (if not taking narcotics) after two weeks. Light activity is encouraged. What are the risks of surgery? This is considered a major abdominal surgery, but it is relatively low risk because no bowel is removed. Bowel habits are expected to fluctuate immediately after surgery, but most patients report improvement in constipation or urgency after recovery (8-10 weeks after surgery). There are small risks of bleeding during surgery, infection at incision sites, urinary tract infection, or development of a hernia at an incision site. The risks and benefits of surgery will be discussed in detail with your surgeon. Should I be concerned about the use of mesh? There is also the risk of mesh pushing or eroding through the bowel or vagina. This can happen months or even years after surgery. A problem with mesh is rare, but if it occurs, further surgery may be needed to correct it. What are the benefits of having robotic ventral rectopexy surgery? This surgery has a high success rate for fixing internal and external rectal prolapse. Once the prolapse is fixed, most patients report improvement in their bowel symptoms. There is always the risk of prolapse coming back. Mesh is used during this surgery to strengthen the pelvic tissues and minimize the risk of recurrent prolapse. Current surgical studies show a 10-20% risk of recurrent prolapse after robotic ventral rectopexy. Studies have shown up to 86% of patients experience improvement in obstructed defecation and up to 92% of patients experience improvement in fecal incontinence. However, some patients do not see a drastic improvement of their bowel symptoms after surgery. Additional treatments, such as dietary modification, stool softeners, pelvic floor physical therapy or a nerve stimulator, are available to help with these symptoms. This surgery is performed minimally invasively using the surgical DaVinci robot. This allows for small incisions, minimal postoperative pain and early return to light activity. POST OPERATIVE CARE Do's Don'ts Do get up and about during your hospital stay and after going home. Do drink plenty of fluid and resume normal bowel medications or as advised by MD (i.e. MiraLax, Senna) to keep stools soft. Do reduce taking laxatives after surgery if stools are too loose. Patients differ enormously in their need for laxatives after surgery. Do start light exercise, such as walking once comfortable. Do expect your bowel function to be different after surgery. Do minimize use of narcotic pain medication. Tylenol or NSAIDs (i.e. ibuprofen) can be taken instead. Don't lift anything heavier than 10-15 lbs for 6-8 weeks after surgery. Don't get constipated or strain to defecate. Don't ignore the urge to go to the bathroom. Don't be concerned if it takes several days for your bowels to work again after surgery. This is normal. Don't do running or weight lifting for 6 weeks. Don't have sexual intercourse for 6 weeks after surgery. Don't drive until no longer taking narcotic pain medication. documented in this encounter [facility] 05-08-2022 History of Present illness Narrative COLORECTAL SURGERY PELVIC FLOOR CLINIC May 12, 2022 Anaya Wilson 82 year old Chief Complaint: Prolapse History of Present Illness: Anaya Wilson is a 82 year old year old female presents for follow up in pelvic floor combined clinic for evaluation for combined repair of multi compartment pelvic organ prolapse . Seen together with Dr. Zayas. She takes Miralax 2-3 times a month. Sometimes she strains. Takes smooth move tea. Bms every few days - pellets or little strings. Does not need to strain. Drains mucous Urinary incontinence , no issues with fecal incontinence, not sure if able to control flatus She has pressure in lower abdomen when need to defecate. Denies pressure in vagina. States she has rectocele, feels bulging in vagina. She has 3 daughters. She has some urine leakage with valsalva. No prior pelvic or abdominal surgery Manometry : Average Pressure Interpretation Rest: 27 mmHg This is below normal range. Normal range is 35-50 mmHg. Squeeze: 96 mmHg This is within normal range. Normal range is 75 - 100 mmHg. There is appropriate incremental change between resting and squeeze pressures which can indicate good pelvic floor movement with squeeze. Sensory: Sensation Volume First sensation : 38 mL / Normal Range: 40-80 mL First urge to defecate: 55 mL / Normal Range: 80-120 mL Maximum tolerable volume: 90 mL / Normal Range: 120-180 mL Recto-anal inhibitory reflex: Yes, at 45 mL air Balloon expulsion: Yes This exhibit hyperacute rectal sensation with at least 2/3 sensory tests. A recto-anal inhibitory reflex (RAIR) was present. This is a normal reflex. EMG Recruitment: EMG recruitment was performed. The patient shows a normal increase in activity with squeeze, and a paradoxic increase in activity with valsalva. This indicates abnormal pelvic floor movement, which can be indicative of poor pelvic floor coordination secondary to pelvic floor dyssynergia or pelvic organ prolapse. Defecography : RESULT: Initiation and ease of evacuation: Incontinent of contrast, limiting evaluation. Change in anorectal angle during defecation: Cannot evaluate due to incontinence and lack of contrast within the rectum. Development of rectocele: Cannot evaluate due to incontinence and lack of contrast within the rectum. Widening of rectovaginal septum: Enterocele: None Sigmoidocele: Full sigmoidocele even at rest, bulging the vagina anteriorly. Rectal intussusception: Probable full prolapse, although poorly evaluated due to incontinence and lack of contrast within the rectum. Post-evacuation recoil: Normal recoil to original position Vaginal length/support: Maintained length and support Physical Exam: Ht 147.3 cm (4' 10) Wt 52.2 kg (115 lb) BMI 24.04 kg/m General - awake, alert, no acute distress Abdominal - Soft, NTTP, non distended, no guarding, -ve peritoneal signs. Anorectal: Perianal skin is intact. No erythema, induration or excoriation. No fissure, fistula or external hemorrhoids. Digital Rectal Exam: Anus: patulous Resting tone: WEAK Squeeze tone: WEAK Lemon Picker present: Yes Large rectocele and enterocele Descended perineum , weak pelvic floor Colonoscopy : Impression: - Preparation of the colon was fair. - Rectal mass 0 to 2 cm from the anal verge. - One large polyp in the rectum. Biopsied. Looks malignant, bleeds like crazy. - The examination was otherwise normal. Recommendation: - Patient has a contact number available for emergencies. The signs and symptoms of potential delayed complications were discussed with the patient. Return to normal activities tomorrow. Written discharge instructions were provided to the patient. - Resume previous diet. - Continue present medications. - Await pathology results. - Repeat colonoscopy at appointment to be scheduled for surveillance. - Return to referring physician in 1 week. Pathology: A. 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 Diverticulosis of colon (without mention of hemorrhage) Dry cough 05/23/2016 Ganglion of joint 07/16/2005 Generalized osteoarthrosis, unspecified site Hemorrhage of gastrointestinal tract, unspecified Hemorrhage of rectum and anus Hypertension Infection of left eye Irritable bowel syndrome Osteomalacia, unspecified Other and unspecified hyperlipidemia Pneumonia, organism unspecified(486) PONV (postoperative nausea and vomiting) Psoriatic arthritis (HCC) Rectocele 01/05/2011 Skin tear of lower leg without complication 05/23/2016 Sprain of unspecified site of sacroiliac region Unspecified constipation Urge incontinence mild PAST SURGICAL HISTORY Procedure Laterality Date ARTHRP KNE CONDYLE&PLATU MEDIAL&LAT COMPARTMENTS Right 06/03/2017 Knee replacement, total COLONOSCOPY FLX DX W/COLLJ SPEC WHEN PFRMD 04/20/2002 Colonoscopy COLONOSCOPY FLX DX W/COLLJ SPEC WHEN PFRMD 07/25/2011 Colonoscopy EYE SURGERY HX JOINT REPLACEMENT HX NEUROPLASTY &/TRANSPOS MEDIAN NRV CARPAL TUNNE 1980 Carpal tunnel decomp b/l hands NEUROPLASTY &/TRANSPOS MEDIAN NRV CARPAL TUNNE 12/18/2011 RIGHT PAST SURGICAL HISTORY OF Left laser eye surgery for glaucoma SIGMOIDOSCOPY FLX DX W/COLLJ SPEC BR/WA IF PFRMD 06/23/2007 TOTAL ABDOMINAL HYSTERECT W/WO RMVL TUBE OVARY 1988 RUBI/BSO for fibroids and bleeding TOTAL KNEE REPLACEMENT Left 03/28/2020 VAGINAL HYSTERECTOMY Current Outpatient Medications Medication Sig Dispense Refill amoxicillin (POLYMOX, AMOXIL) 500 mg capsule take 1 capsule by mouth three times a day until finished (Patient not taking: No sig reported) famotidine (PEPCID) 10 mg tablet Take 10 mg by mouth twice daily.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 avoidance/management of constipation, limiting fluid intake 3 hours prior to bedtime, and ensuring good quality sleep (treat sleep disorders, practice good sleep hygiene) to help prevent nocturia. We next discussed OAB medications as second line treatment including anticholingerics and beta 3 agonist. We discussed anticholinergic side effects including dry eye, dry mouth, constipation, urinary retention and sometimes confusion in elderly patients. We also discussed the side effects of Mirabegron (Beta 3 agonist), including elevated blood pressure. We finally discussed third line therapies (Botox, InterStim (SNS), Percutaneous Tibial Nerve Stimulation (PTNS), including the RBA of each. Pt will think about options and let us know PLAN: Pt is going to think about her surgical options and discuss with her family. If Anaya is ready to move forward with surgery, she will reach out to us. If Anaya wishes to move forward with surgery, urodynamics can be scheduled at that time. If Anaya wishes to discuss OAB treatment option, she will also reach out Medical Decision Making: Problems: Moderate: 2+ stable chronic illnesses Data: Unique test(s) ordered: 2 Risk: Moderate: Decision on elective major surgery w/o risk factors Medical Decision Making Level: 4 - Moderate My final recommendations will be communicated back to the requesting physician by way of shared Medical record or letter via [place] mail. Nel Zayas MD ATTESTATION By signing my name below, Getachew Raya, attest that this documentation has been prepared under the direction and in the presence of Dr. Nel Zayas M.D. Electronically signed, Stefan Stock May 08, 2022 11:07 AM I agree with the Chief Complaint, ROS, and Past Histories independently gathered by the clinical computer network support specialist and the remaining scribed note accurately describes my personal service to the patient. Provider Attestation: Nel Raya MD, personally performed the services described in this documentation. All medical record entries made by the scribe were at my direction and in my presence. I have reviewed the chart and discharge instructions (if applicable) and agree that the record reflects my personal performance and is accurate and complete. documented in this encounter [facility] 05-07-2022 Miscellaneous Notes Agree with recommendations below Edenilson Nicholson DO Patient calling said she cut her arm on a kettle that has the handle missing and a sam screw is stickling out. Computer shows she had Tdap on 07/11/2020. Patient said it is not deep would not need stitches. Advised patient to make sure she cleaned area well and put first aid cream on and bandage and make sure does not get infected. Patient was concerned since she has colonoscopy later this week and appts at main campus tomorrow. Advised she should not have to cancel any of her appts. documented in this encounter [facility] 05-07-2022 History of Present illness Narrative Female Pelvic Medicine & Reconstructive Surgery Consult CHIEF COMPLAINT: Anaya Wilson is a 82 year old female who presents for consultation requested by Dr. Villalobos for an opinion regarding rectal prolapse, pelvic organ prolapse, urinary frequency and recurrent UTIs. HISTORY OF PRESENT ILLNESS: Bulge in vagina - had it for several years - out a little - no pain or pressure 2. Denies issues with dyspareunia or vaginal dryness - has never tried vaginal estrogen 3. Went to PFPT in [place] - now doing exercises at home 2-3 times/day 4. Recurrent UTIs Component Latest Ref Rng & Units 05/20/2017 12/16/2017 01/01/2018 02/03/2018 10/14/2018 07/09/2019 03/07/2020 03/12/2020 03/15/2020 03/21/2020 04/01/2020 04/01/2020 04/10/2020 04/27/2020 07/17/2020 12/18/2020 01/09/2021 06/09/2021 12/03/2021 01/12/2022 01/22/2022 02/10/2022 03/05/2022 04/24/2022 12:25 AM 12:43 AM Culture No growth (<1,000 CFU/ml) No growth (<1,000 CFU/ml) No growth (<1,000 CFU/ml) 10,000 - <50,000 CFU/ml . . . 10,000 - <50,000 CFU/ml (A) . . . 50,000 - <100,000 CFU/ml . . . <10,000 CFU/ml . . . 10,000 - <50,000 CFU/ml (A) . . . No growth (<1,000 CFU/ml) <10,000 CFU/ml (A) . . . No growth 5 days No growth 5 days <10,000 CFU/ml . . . No growth (<1,000 CFU/ml) No growth (<1,000 CFU/ml) >=100,000 CFU/ml (A) . . . <10,000 CFU/ml . . . 10,000 -<50,000 CFU/ml Streptococcus anginosus (A) 10,000 -<50,000 CFU/ml Mixed microbiota (A) <10,000 CFU/ml Normal urogenital ji 10,000 -<50,000 CFU/ml Streptococcus anginosus (A) 10,000 -<50,000 CFU/ml Normal urogenital ji 10,000 -<50,000 CFU/ml Mixed microbiota (A) 10,000 -<50,000 CFU/ml Normal urogenital ji 5. Urinary frequency - leaking on the way to the bathroom, especially when getting up at night - typically gets up 2-3 times/night - NORMA if bladder is full 6. 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 She has no history of an abnormal mammogram LMP: No LMP recorded. Patient has had a hysterectomy.; Menopause age 48: Menstrual history: NA; Deliveries: x3 History of third or fourth degree laceration: No Weight of largest baby: 7# 5oz Sexual function Sexually active: Yes, no issues Occupation: retired Marital Status: documented in this encounter [facility] 05-03-2022 Miscellaneous Notes Pt informed, verbalized understanding vIette Valenzuela Yes, able to restart methotrexate after completion of antibiotic regimen. Kandi [place] APRN.CNP Patient reports she has missed 2-3 weeks of taking her methotrexate because she was taking PCN and amoxicillin. Reports she is done with the PCN and amoxicillin now and would like to know if she can start taking her methotrexate again? Please advise patient. documented in this encounter [facility] 04-27-2022 Miscellaneous Notes Spoke to the , discussed results of defecography. Patient is scheduled for colonoscopy on May 10. She will then be seen in the combined pelvic floor clinic by myself and Dr. Zayas. I reassured the that this is not a condition that enterocele and rectocele is not a condition that would require ever an emergency intervention. This is an elective quality of life surgery, she can decide not to pursue the operation and continue living as is. 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 Diverticulosis of colon (without mention of hemorrhage) Dry cough 05/23/2016 Ganglion of joint 07/16/2005 Generalized osteoarthrosis, unspecified site Hemorrhage of gastrointestinal tract, unspecified Hemorrhage of rectum and anus Infection of left eye Irritable bowel syndrome Osteomalacia, unspecified Other and unspecified hyperlipidemia Pneumonia, organism unspecified(486) Psoriatic arthritis (HCC) Rectocele 01/05/2011 Skin tear of lower leg without complication 05/23/2016 Sprain of unspecified site of sacroiliac region Unspecified constipation Urge incontinence mild PAST SURGICAL HISTORY Procedure Laterality Date ARTHRP KNE CONDYLE&PLATU MEDIAL&LAT COMPARTMENTS Right 06/03/2017 Knee replacement, total COLONOSCOPY FLX DX W/COLLJ SPEC WHEN PFRMD 04/20/2002 Colonoscopy COLONOSCOPY FLX DX W/COLLJ SPEC WHEN PFRMD 07/25/2011 Colonoscopy NEUROPLASTY &/TRANSPOS MEDIAN NRV CARPAL TUNNE 1979 Carpal tunnel decomp b/l hands NEUROPLASTY &/TRANSPOS MEDIAN NRV CARPAL TUNNE 12/18/2011 RIGHT PAST SURGICAL HISTORY OF Left laser eye surgery for glaucoma SIGMOIDOSCOPY FLX DX W/COLLJ SPEC BR/WA IF PFRMD 06/23/2007 TOTAL ABDOMINAL HYSTERECT W/WO RMVL TUBE OVARY 1988 RUBI/BSO for fibroids and bleeding TOTAL KNEE REPLACEMENT Left 03/28/2020 Current Outpatient Medications Medication Sig amoxicillin (POLYMOX, AMOXIL) 500 mg capsule take 1 capsule by mouth three times a day until finished cephALEXin (KEFLEX) 500 mg capsule Take 1 capsule by mouth twice daily for 7 days. famotidine (PEPCID) 10 mg tablet Take 10 mg by mouth twice daily. hydrocortisone (ANUSOL-HC) 25 mg suppository 1 Suppository by RECTAL route twice daily as needed (hemorrhoids/rectal pain). amitriptyline (ELAVIL) 10 mg tablet Take 1 tablet by mouth daily at bedtime. loratadine (CLARITIN) 10 mg tablet Take 1 tablet by mouth once daily. meloxicam (MOBIC) 15 mg tablet TAKE 1 TABLET BY MOUTH ONCE DAILY methotrexate 2.5 mg tablet Take 6 tablets once weekly,on lisinopril (ZESTRIL, PRINIVIL) 10 mg tablet Take 1 tablet by mouth once daily. Take an extra 1/2 tablet (5 mg) if BLOOD PRESSURE is 140/90 or greater cyclobenzaprine (FLEXERIL) 10 mg tablet Take 1 tablet by mouth twice daily as needed for Muscle Spasm. fluorometholone (FML LIQUID FILM) 0.1 % ophthalmic suspension Use 1 Drop in both eyes once daily. Azelaic Acid (FINACEA) 15 % gel Apply to affected area once daily. multivitamin with minerals (VISION/OPTIGEN) tablet Take 1 tablet by mouth once daily. CALCIUM/MAGNESIUM (CALCIUM AND MAGNESIUM ORAL) Take 3 capsules by mouth twice daily. BIOTIN ORAL Take by mouth once daily. MULTIVITAMIN ORAL Take by mouth once daily. Gummies FOLIC ACID ORAL Take by mouth. Cholecalciferol, Vitamin D3, 5,000 unit tab Take 5,000 Units by mouth once daily. ydwfz-7g-pzw-epa-fish oil-D3 350 mg-400 mg- 1,000 unit cap Take by mouth. Takes a total of 5,000 daily Red Yeast Rice Extract 600 mg ORAL Cap Take by mouth. Take one(1) tablet two(2) times daily. Lecithin 400 mg ORAL Cap Take one(1) tablet daily. Glutamine (L-GLUTAMINE) 500 mg ORAL Cap Take one(1) tablet daily. VITAMIN C 500 MG ORAL TAB Take one(1) tablet daily. polyethylene glycol 3350 (MIRALAX ORAL) Take 1 Cap-Full by mouth once daily as needed. No current facility-administered medications for this visit. ALLERGIES Allergen Reactions Caffeine Codeine Darvocet A500 [Prop* Vomiting Demerol [Meperidine* Vomiting Entex [Phenylephrin* Ephedrine Other: See Comments Heart palpitations Griseofulvin Milk Containing Pro* Intolerance Nasal stuffiness Tramadol Other: See Comments Nausea, vomiting, dry heaves after carpal tunnel surgery Vicodin [Hydrocodon* Itching Zoloft [Sertraline * Mental Status Change Increased anxiety and feeling of depression. Started in 2005, not noted then Social History Tobacco Use Smoking status: Never Smokeless tobacco: Never Vaping Use Vaping Use: Never used Substance Use Topics Alcohol use: No Drug use: No ROS: See HPI PE: BP 128/64 Pulse 64 Temp (Src) 96.1 (Left Tympanic) Resp 16 Wt 114 lb (51.7kg) Gen: A&OX3, NAD, non-toxic appearing HEENT: PERRLA, EOMs intact b/l, nares without drainage, pharynx without erythema, exudate, lesions, or drainage. Uvula midline. Neck: No LAD, no thyromegaly, no meningismus. CV: RRR, no murmur, normal s1s2 Lungs: CTA b/l, no wheezing Skin: No rashes, lesions, or wounds on exposed skin. No edema, normal pulses ASSESSMENT/PLAN: 1. Urinary frequency - ICD9: 788.41, ICD10: R35.0 (primary diagnosis) UA + for leukocytes, need for urine culture. - UA DIP, URINE (POC) - URINE CULTURE 2. Prolapse of intestine - ICD9: 569.89, ICD10: K63.4 - f/u with [facility] and colorectal surgeon for potential repair of her vaginal prolapse and rectal prolapse. 3. Pelvic floor dysfunction in female - ICD9: 618.83, ICD10: M62.89 - f/u with [facility] [employer] SPECIALIST and colorectal surgeon for potential repair of her vaginal prolapse and rectal prolapse. 4. Hypertension, essential - ICD9: 401.9, ICD10: I10 - good control - Continue current medication(s) - Encouraged dietary sodium restriction/DASH diet - Recommended regular aerobic exercise. - Recommend home blood pressure monitoring, to bring results in on next visit - Goal of BP <130/80 5. Dyslipidemia - ICD9: 272.4, ICD10: E78.5 - to be determined upon return of lab results - Continue current medication. - Encouraged following a low fat, low cholesterol diet. Edenilson Nicholson DO Return if no improvement. Follow up with Edenilson Nicholson DO. To ER if develops chest pain, shortness of breath Discussed risks, benefits, alternatives, and potential side effects of medications. Patient/Guardian expressed understanding and agreed with the plan. See patient instructions. Edenilson Nicholson DO [address] [place] [address] documented in this encounter [facility] 04-20-2022 Miscellaneous Notes SPECIALTY CARE COORDINATION FOLLOW-UP NOTE Spoke to Pillo, ; returning my call. Requesting to discuss the defecography results. Requesting a telephone call instead of a virtual with Dr. Villalobos. Agreed to telephone visit on 04/27 at 11am. All questions answered and he thanked me for the phone call. Signature Jenny Yun RN April 20, 2022 documented in this encounter [facility] 04-20-2022 Miscellaneous Notes SPECIALTY CARE COORDINATION FOLLOW-UP NOTE Unable to reach Anaya. Left a voice message that I was calling in reference to a question she had when speaking to Women[facility] about the 03/08/2022 defecography test. Asked if she wanted to further question to call the office at [phone]. Signature Jenny Yun RN April 20, 2022 documented in this encounter [facility] 04-20-2022 History of Present illness Narrative Chief Complaint Patient presents with: Leg Pain: Aretha lower legs x months, worsening pain, had both knees replaced couple years ago. HPI Anaya Wilson is a 82 year old female who presents here today for Above Complaints.. Today: Had 2 lower teeth pulled earlier this week as well as infection. Was on PCN prior to tooth extraction. Is on amoxicillin 500 tid right now and finishes tomorrow morning. Pain has for the most part resolved. Legs-fronts of her legs have started hurting yesterday morning. [place] a little better this morning but is hurting a little worse now. Is a hard ache. No fevers. Concerned about infection going from her mouth to her knees which have been replaced. Hasn't taken medication for this. Urinary sx-frequency off and on since yesterday. Just thought she'd get it checked while she is here today. No burning or incontinence. Past medical history, appointments, medications, allergies reviewed. 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 Diverticulosis of colon (without mention of hemorrhage) Dry cough 05/23/2016 Ganglion of joint 07/16/2005 Generalized osteoarthrosis, unspecified site Hemorrhage of gastrointestinal tract, unspecified Hemorrhage of rectum and anus Infection of left eye Irritable bowel syndrome Osteomalacia, unspecified Other and unspecified hyperlipidemia Pneumonia, organism unspecified(486) Psoriatic arthritis (HCC) Rectocele 01/05/2011 Skin tear of lower leg without complication 05/23/2016 Sprain of unspecified site of sacroiliac region Unspecified constipation Urge incontinence mild Previous Surgical History PAST SURGICAL HISTORY Procedure Laterality Date ARTHRP KNE CONDYLE&PLATU MEDIAL&LAT COMPARTMENTS Right 06/03/2017 Knee replacement, total COLONOSCOPY FLX DX W/COLLJ SPEC WHEN PFRMD 04/20/2002 Colonoscopy COLONOSCOPY FLX DX W/COLLJ SPEC WHEN PFRMD 07/25/2011 Colonoscopy NEUROPLASTY &/TRANSPOS MEDIAN NRV CARPAL TUNNE 1979 Carpal tunnel decomp b/l hands NEUROPLASTY &/TRANSPOS MEDIAN NRV CARPAL TUNNE 12/18/2011 RIGHT PAST SURGICAL HISTORY OF Left laser eye surgery for glaucoma SIGMOIDOSCOPY FLX DX W/COLLJ SPEC BR/WA IF PFRMD 06/23/2007 TOTAL ABDOMINAL HYSTERECT W/WO RMVL TUBE OVARY 1988 RUBI/BSO for fibroids and bleeding TOTAL KNEE REPLACEMENT Left 03/28/2020 Family History FAMILY HISTORY Problem Relation Age of Onset Heart Mother CHF Cancer Father prostate Psychiatry Father Cancer Brother No Known Problems Daughter No Known Problems Daughter No Known Problems Daughter Breast Cancer Maternal Aunt Patient Allergies ALLERGIES Allergen Reactions Caffeine Codeine Darvocet A500 [Prop* Vomiting Demerol [Meperidine* Vomiting Entex [Phenylephrin* Ephedrine Other: See Comments Heart palpitations Griseofulvin Milk Containing Pro* Intolerance Nasal stuffiness Tramadol Other: See Comments Nausea, vomiting, dry heaves after carpal tunnel surgery Vicodin [Hydrocodon* Itching Zoloft [Sertraline * Mental Status Change Increased anxiety and feeling of depression. Started in 2005, not noted then Current Medications Current Outpatient Medications on File Prior to Visit Medication Sig amoxicillin (POLYMOX, AMOXIL) 500 mg capsule take 1 capsule by mouth three times a day until finished famotidine (PEPCID) 10 mg tablet Take 10 mg by mouth twice daily. hydrocortisone (ANUSOL-HC) 25 mg suppository 1 Suppository by RECTAL route twice daily as needed (hemorrhoids/rectal pain). amitriptyline (ELAVIL) 10 mg tablet Take 1 tablet by mouth daily at bedtime. loratadine (CLARITIN) 10 mg tablet Take 1 tablet by mouth once daily. meloxicam (MOBIC) 15 mg tablet TAKE 1 TABLET BY MOUTH ONCE DAILY methotrexate 2.5 mg tablet Take 6 tablets once weekly,on lisinopril (ZESTRIL, PRINIVIL) 10 mg tablet Take 1 tablet by mouth once daily. Take an extra 1/2 tablet (5 mg) if BLOOD PRESSURE is 140/90 or greater cyclobenzaprine (FLEXERIL) 10 mg tablet Take 1 tablet by mouth twice daily as needed for Muscle Spasm. fluorometholone (FML LIQUID FILM) 0.1 % ophthalmic suspension Use 1 Drop in both eyes once daily. Azelaic Acid (FINACEA) 15 % gel Apply to affected area once daily. multivitamin with minerals (VISION/OPTIGEN) tablet Take 1 tablet by mouth once daily. CALCIUM/MAGNESIUM (CALCIUM AND MAGNESIUM ORAL) Take 3 capsules by mouth twice daily. MULTIVITAMIN ORAL Take by mouth once daily. Gummies FOLIC ACID ORAL Take by mouth. Cholecalciferol, Vitamin D3, 5,000 unit tab Take 5,000 Units by mouth once daily. qcagx-[id number]-epa-fish oil-D3 350 mg-400 mg- 1,000 unit cap Take by mouth. Takes a total of 5,000 daily Lecithin 400 mg ORAL Cap Take one(1) tablet daily. Glutamine (L-GLUTAMINE) 500 mg ORAL Cap Take one(1) tablet daily. VITAMIN C 500 MG ORAL TAB Take one(1) tablet daily. polyethylene glycol 3350 (MIRALAX ORAL) Take 1 Cap-Full by mouth once daily as needed. (Patient not taking: No sig reported) BIOTIN ORAL Take by mouth once daily. (Patient not taking: No sig reported) Red Yeast Rice Extract 600 mg ORAL Cap Take by mouth. Take one(1) tablet two(2) times daily. (Patient not taking: No sig reported) No current facility-administered medications on file prior to visit. Social History Social History Tobacco Use Smoking status: Never Smokeless tobacco: Never Vaping Use Vaping Use: Never used Substance Use Topics Alcohol use: No Drug use: No Review of Symptoms REVIEW OF SYSTEMS See HPI, otherwise negative EXAM: BP 122/64 (BP Site: Left Arm, BP Position: Sitting, BP Cuff Size: Regular Adult) Pulse (!) 54 Resp 16 Wt 51.3 kg (113 lb 3.2 oz) SpO2 99% BMI 23.66 kg/m General Appearance: Well appearing, alert, in no acute distress, well-hydrated, well nourished.. Lungs: Lungs clear to auscultation. No wheezing, rhonchi, rales.. Heart: RRR without murmur, gallop, or rubs. No ectopy. Abdomen: Normal abdominal exam, Abdomen soft, non-tender. Bowel sounds normal. No masses, organomegaly. Musculoskeletal: No joint swelling, deformity, or tenderness. Health Maintenance List COVID-19 VACCINE(1) Never done PNEUMOCOCCAL: 65+(1 - PCV) Never done SHINGRIX VACCINE(1 of 2) due on 11/03/2012 INFLUENZA(1) due on 08/31/2022 DIABETES SCREEN due on 12/02/2024 DTAP,TDAP,TD(3 - Td or Tdap) due on 07/11/2030 BONE DENSITY Completed SPIROMETRY Completed ADVANCE DIRECTIVE DISCUSSION Discontinued Data reviewed Previous records, office notes ASSESSMENT/PLAN: 1. Urinary frequency - ICD9: 788.41, ICD10: R35.0 (primary diagnosis) acute - Send urine for culture - Begin treatment with Keflex x7 days - Patient education for prevention given - UA DIP, URINE (POC) 2. Pain in both lower extremities - ICD9: 729.5, ICD10: M79.604, M79.605 Likely r/t antibiotic use. Assessment negative, continue to monitor. Angeline Monterroso APRN.CNP Greater than 50% of 40-minute visit spent face to face with patient in counseling and education. documented in this encounter [facility] 04-19-2022 Miscellaneous Notes Patient requests appointment. Scheduled tomorrow with Angeline ROY per request. Elizabeth Perez RN Reason for Disposition Leg pain Answer Assessment - Initial Assessment Questions 1. ONSET: today 2. LOCATION: both legs ache in the front 3. PAIN: - MILD (1-3): doesn't interfere with normal activities 4. WORK OR EXERCISE: No 5. CAUSE: Patient says she is nervous about her knee replacements because she has a dental infection. She is taking antibiotic. 6. OTHER SYMPTOMS: No other symptoms. Denies redness, warmth, swelling. No fever. 7. : Is there any chance you are ? When was your last menstrual period? No Protocols used: Leg Cung-VEAXC-MI documented in this encounter [facility] 04-17-2022 History of Present illness Narrative Order placed for UDS documented in this encounter [facility] 04-16-2022 Instructions Mellisa Villalobos DO - 04/16/2022 11:33 AM EST Images from the original note were not included. Fiber supplement - start with tspoon a day (metamucil, benafiber, konsyl...) Drink more water Probiotic (align) -- activia yogurt Magnesium oxide 400 mg a day Smooth move tea 6. Colonoscopy Appointment for combined pelvic floor clinic to be evaluated by urogynecologist Dr. Nel Zayas on 07/03/22 Bowel Preparation Instructions for: Golytely, Nulytely, Trilyte or Colyte (polyethylene glycol 3350 and electrolytes) IF YOU DO NOT FOLLOW THESE DIRECTIONS, YOUR COLONOSCOPY WILL BE CANCELLED. Barriga Instructions: Your bowel must be empty so that your doctor can clearly view your colon. Follow all of the instructions in this handout EXACTLY as they are written. Do NOT eat any solid food the ENTIRE day before your colonoscopy. Drink only clear liquids. Buy your bowel preparation at least 5 days before your colonoscopy. TRANSPORTATION on the Day of Your Exam A responsible person MUST be present with you at Check In prior to your colonoscopy and REMAIN in the endoscopy area until you are discharged. You are NOT ALLOWED to drive, take a taxi or bus, or leave the Endoscopy Center ALONE. If you do not have a responsible transit mixer driver (family member or friend) with you to take you home, your exam cannot be done with sedation and will be cancelled. Please bring a list of all of your current medications, including any Over-the Counter medications with you. Medications If you take insulin, diabetic medications or blood thinners such as Coumadin (warfarin), Plavix (clopidogrel), Ticlid (ticlopidine hydrochloride), Agrylin (anagrelide), Xarelto (Rivaroxaban), Pradaxa (Dabigatran), Eliquis (Apixaban), and Effient (Prasugrel). You MUST call the doctors who orders those medicines for instructions on altering the dosage before your colonoscopy. All other medications should be taken the day of the exam with a sip of water including ASPIRIN. Five (5) Days Before Your Colonoscopy Do NOT take medicines that stop diarrhea - such as Imodium, Kaopectate, or Pepto Bismol. Do NOT take fiber supplements - such as Metamucil, Citrucel, or Perdiem. Do NOT take products that contain iron - such as multi-vitamins (the label lists what is in the products). Do NOT take Vitamin E. Buy the prescription bowel preparation solution at your local pharmacy or [facility]. 02/2019 Bowel Preparation Instructions for: Golytely, Nulytely, Trilyte or Colyte (polyethylene glycol 3350 and electrolytes) Three (3) Days Before Your Colonoscopy Do NOT eat high-fiber foods - such as popcorn, beans, seeds (flax, sunflower, quinoa), multigrain bread, nuts, salad/vegetables, or fresh and dried fruit. One (1) Day Before Your Colonoscopy Only drink clear liquids the ENTIRE DAY before your colonoscopy. Do NOT eat any solid foods. Drink at least 8 ounces of clear liquids every hour after waking up. The clear liquids you can drink include: Clear Liquid (NO RED LIQUIDS) DO NOT DRINK Gatorade, Pedialyte or Powerade Clear broth or bouillon Coffee or tea (no milk or non-dairy creamer) Carbonated and non-carbonated soft drinks Jacek-Aid or other fruit flavored drinks Strained fruit juices (no pulp) Jell-O, popsicles, hard candy Water Alcohol Milk or non-dairy creamers Noodles or vegetables in soup Juice with pulp Liquid you cannot see through Do not use tobacco/vaping products The bowel preparation solution will be consumed in two parts. Mix the solution the evening before your colonoscopy and refrigerate before drinking. You may add the flavor pack that came with the bowel preparation. Do NOT add ice, sugar or any other flavorings to the solution. Part 1 At 6:00 PM - Evening before your colonoscopy Drink an 8-oz glass of bowel preparation every 10 minutes for a total of 8 glasses. You may continue to drink clear liquids until midnight. Part 2 On the day of your colonoscopy you may drink clear liquids up to (three) 3 hours before your procedure. 4 1/2 hours before your colonoscopy Drink an 8-oz glass of bowel preparation every 10 minutes for a total of 8 glasses. Fifteen (15) minutes later, drink an 8-oz glass of clear liquids every 15 minutes for a total of 2 glasses. You may continue to drink clear liquids up to (three) 3 hours before your exam. 2 02/2019 documented in this encounter [facility] 04-16-2022 History of Present illness Narrative COLORECTAL SURGERY Follow-up April 16, 2022 Chief complaint: Constipation HPI: Anaya Wilson is a 82 year old F who presents after having a rectal prolapse in December. She takes Miralax 2-3 times a month. Sometimes she strains. Takes smooth move tea. Bms every few days - pellets or little strings. Does not need to strain. Drains mucous Urinary incontinence , no issues with fecal incontinence, not sure if able to control flatus Last colonoscopy was 12 years ago. She has pressure in lower abdomen when need to defecate. Denies pressure in vagina. States she has rectocele, feels bulging in vagina. She has 3 daughters. She has some urine leakage with valsalva. No prior pelvic or abdominal surgery Colonoscopy Report 07/25/11 diverticulosis Looping of colon Manometry : Average Pressure Interpretation Rest: 27 mmHg This is below normal range. Normal range is 35-50 mmHg. Squeeze: 96 mmHg This is within normal range. Normal range is 75 - 100 mmHg. There is appropriate incremental change between resting and squeeze pressures which can indicate good pelvic floor movement with squeeze. Sensory: Sensation Volume First sensation : 38 mL / Normal Range: 40-80 mL First urge to defecate: 55 mL / Normal Range: 80-120 mL Maximum tolerable volume: 90 mL / Normal Range: 120-180 mL Recto-anal inhibitory reflex: Yes, at 45 mL air Balloon expulsion: Yes This exhibit hyperacute rectal sensation with at least 2/3 sensory tests. A recto-anal inhibitory reflex (RAIR) was present. This is a normal reflex. EMG Recruitment: EMG recruitment was performed. The patient shows a normal increase in activity with squeeze, and a paradoxic increase in activity with valsalva. This indicates abnormal pelvic floor movement, which can be indicative of poor pelvic floor coordination secondary to pelvic floor dyssynergia or pelvic organ prolapse. Defecography : RESULT: Initiation and ease of evacuation: Incontinent of contrast, limiting evaluation. Change in anorectal angle during defecation: Cannot evaluate due to incontinence and lack of contrast within the rectum. Development of rectocele: Cannot evaluate due to incontinence and lack of contrast within the rectum. Widening of rectovaginal septum: Enterocele: None Sigmoidocele: Full sigmoidocele even at rest, bulging the vagina anteriorly. Rectal intussusception: Probable full prolapse, although poorly evaluated due to incontinence and lack of contrast within the rectum. Post-evacuation recoil: Normal recoil to original position Vaginal length/support: Maintained length and support Physical Exam: Ht 147.3 cm (4' 10) Wt 52.2 kg (115 lb) BMI 24.04 kg/m General - awake, alert, no acute distress Abdominal - Soft, NTTP, non distended, no guarding, -ve peritoneal signs. Anorectal: Perianal skin is intact. No erythema, induration or excoriation. No fissure, fistula or external hemorrhoids. Digital Rectal Exam: Anus: patulous Resting tone: WEAK Squeeze tone: WEAK Lemon Picker present: Yes Large rectocele and enterocele Descended perineum , weak pelvic floor Assessment Medical Decision Making: Assessment & Diagnosis: Anaya Wilson is a 82 year old female with rectal prolapse. Data Reviewed: Tests & Documents Reviewed/ordered: Review of prior notes from chart I have independently interpreted: CT Abdomen, Defecography I have discussed Anaya Wilson's treatment plan and/or results with patient . Treatment plan: Colonoscopy is ordered Will bring the patient to the multidisciplinary pelvic floor clinic for consideration of combined repair with Dr. Marquez Villalobos DO Pelvic Floor Department of Colorectal Surgery Risk of morbidity, mortality and/or complications of treatment plan: moderate documented in this encounter [facility] 04-12-2022 Miscellaneous Notes Pt called in asking question about the two rectal procedures she is having done on 04/16/22. I gave her the two phone numbers it said to call for any information regarding the one procedure. The second procedure it looked like you only needed to make sure you had ID and insurance information. documented in this encounter [facility] 04-09-2022 Miscellaneous Notes Pt informed, verbalized understanding Ivette Valenzuela Noted, would have her finish out her pen V K prescription and see if Dr. Nuñez would like her on any additional antibiotic when she is assessed Saturday Edenilson Nicholson DO Pt called in and reports she was into [facility] on Saturday for a mouth infection. She report she was put on penicillin. She states she had her last knee replacement on March 2020 and the other one a couple years before that. She states she can't get into see her dentist Dr Nuñez until Saturday. Please call and advise. documented in this encounter [facility] 04-07-2022 History of Present illness Narrative Patient presents with: Mouth/Lip Problem: Sore and red bottoms gums x this AM HPI: Gum Lesion: Location: lower front, inside the lip Duration: noticed today Pruritis/Pain: painful Change: Drainage/blister/pustule/ulcerati on: sore spot Treatment: none 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 Diverticulosis of colon (without mention of hemorrhage) Dry cough 05/23/2016 Ganglion of joint 07/16/2005 Generalized osteoarthrosis, unspecified site Hemorrhage of gastrointestinal tract, unspecified Hemorrhage of rectum and anus Infection of left eye Irritable bowel syndrome Osteomalacia, unspecified Other and unspecified hyperlipidemia Pneumonia, organism unspecified(486) Psoriatic arthritis (HCC) Rectocele 01/05/2011 Skin tear of lower leg without complication 05/23/2016 Sprain of unspecified site of sacroiliac region Unspecified constipation Urge incontinence mild MEDICATIONS: famotidine (PEPCID) 10 mg tablet Take 10 mg by mouth twice daily. hydrocortisone (ANUSOL-HC) 25 mg suppository 1 Suppository by RECTAL route twice daily as needed (hemorrhoids/rectal pain). amitriptyline (ELAVIL) 10 mg tablet Take 1 tablet by mouth daily at bedtime. loratadine (CLARITIN) 10 mg tablet Take 1 tablet by mouth once daily. meloxicam (MOBIC) 15 mg tablet TAKE 1 TABLET BY MOUTH ONCE DAILY methotrexate 2.5 mg tablet Take 6 tablets once weekly,on lisinopril (ZESTRIL, PRINIVIL) 10 mg tablet Take 1 tablet by mouth once daily. Take an extra 1/2 tablet (5 mg) if BLOOD PRESSURE is 140/90 or greater polyethylene glycol 3350 (MIRALAX ORAL) Take 1 Cap-Full by mouth once daily as needed. (Patient not taking: Reported on 02/16/2022) cyclobenzaprine (FLEXERIL) 10 mg tablet Take 1 tablet by mouth twice daily as needed for Muscle Spasm. fluorometholone (FML LIQUID FILM) 0.1 % ophthalmic suspension Use 1 Drop in both eyes once daily. Azelaic Acid (FINACEA) 15 % gel Apply to affected area once daily. multivitamin with minerals (VISION/OPTIGEN) tablet Take 1 tablet by mouth once daily. CALCIUM/MAGNESIUM (CALCIUM AND MAGNESIUM ORAL) Take 3 capsules by mouth twice daily. BIOTIN ORAL Take by mouth once daily. (Patient not taking: Reported on 02/16/2022) MULTIVITAMIN ORAL Take by mouth once daily. Gummies (Patient not taking: Reported on 02/16/2022) FOLIC ACID ORAL Take by mouth. Cholecalciferol, Vitamin D3, 5,000 unit tab Take 5,000 Units by mouth once daily. zglsh-4z-cry-epa-fish oil-D3 350 mg-400 mg- 1,000 unit cap Take by mouth. Takes a total of 5,000 daily Red Yeast Rice Extract 600 mg ORAL Cap Take by mouth. Take one(1) tablet two(2) times daily. (Patient not taking: Reported on 02/16/2022) Lecithin 400 mg ORAL Cap Take one(1) tablet daily. Glutamine (L-GLUTAMINE) 500 mg ORAL Cap Take one(1) tablet daily. VITAMIN C 500 MG ORAL TAB Take one(1) tablet daily. ALLERGIES: ALLERGIES Allergen Reactions Caffeine Codeine Darvocet A500 [Prop* Vomiting Demerol [Meperidine* Vomiting Entex [Phenylephrin* Ephedrine Other: See Comments Heart palpitations Griseofulvin Milk Containing Pro* Intolerance Nasal stuffiness Tramadol Other: See Comments Nausea, vomiting, dry heaves after carpal tunnel surgery Vicodin [Hydrocodon* Itching Zoloft [Sertraline * Mental Status Change Increased anxiety and feeling of depression. Started in 2005, not noted then VITALS: BP 124/82 Pulse 66 Temp 36.5 C (97.7 F) Resp 18 Wt 53.7 kg (118 lb 6.4 oz) SpO2 99% BMI 24.75 kg/m PHYSICAL EXAM: GEN: pleasant, no acute distress, alert HEENT: PERRL, EOMI, MMM 2mm pustule in the gingiva at the base of the lower right middle incisor. Enamel wear on all lower teeth, no tenderness with pressure on the teeth NECK: supple, no lymphadenopathy, no thyromegaly ASSESSMENT/PLAN: 1. Dental infection - ICD9: 522.4, ICD10: K04.7 - PENICILLIN V POTASSIUM 500 MG TABLET Hold methotrexate Saturday while on antibiotic. As needed analgesia (mobic) Follow up with dentist for gingivitis vs tooth abscess. Efra Stinson MD documented in this encounter [facility] 03-22-2022 Miscellaneous Notes Opened in Error documented in this encounter [facility] 03-08-2022 History of Present illness Narrative Radiology Service Progress Note PATIENT NAME: Anaya Wilson DATE OF SERVICE: March 08, 2022 TIME: 11:30 AM PATIENT IDENTITY VERIFICATION COMPLETED USING TWO (2) IDENTIFIERS: Name and Date of confirmed by patient verbally. FALL SCREENING: Has the patient had 2 falls in the last year or 1 fall with injury or currently using an Ambulatory Assistive Device (Walker, Cane, Wheelchair, Crutches, etc.)? No PATIENT GENDER DATA: Female. status: : No status: NO. PATIENT RELEVANT IMPLANT DATA REVIEWED: Not Applicable RADIOLOGY DEPARTMENT: General X-ray: Exam(s) Completed: GI/ Procedure(s): Defecating Proctogram PERIPHERAL IV DATA: Not applicable SIGNED BY: RT Pavel(R) March 08, 2022 11:30 AM documented in this encounter [facility] 03-07-2022 Miscellaneous Notes Patient phoned back stating Yi Gonsalves Np, at [facility] is the one who ordered the mag citrate, which is OTC, and on a national back order. Given patient phone number- [phone], which is the number listed on the GI defecating proctogram procedure scheduled for tomorrow, and advised her to let them know she is unable to get the mag citrate and ask them to advise. Patient agreeable. Patient calling said she is scheduled for test on not a colonoscopy. Computer show a defecating protogram is scheduled, she was given instructions to get Mag citrate and dulcolax tablets. Patient said nationwide back order of mag citrate now told by pharmacy. Advised patient to check with [facility] office that had given her the instructions to see what they would want patient to be using in its place. Patient said she would call PCP back if not able to reach that office. Patient uses [facility] for her pharmacy if needed. documented in this encounter [facility] 03-06-2022 Miscellaneous Notes Patient given results and verbalized understanding of instructions given. Johanna Kilpatrick Please call patient and let her know her COVID and influenza were negative. Follow-up with PCP as needed. documented in this encounter [facility] 03-05-2022 History of Present illness Narrative This note was created using Task Messenger. Subjective Anaya Wilson is a 82 year old female. HPI Patient presents with cough over the past 3 days. Denies chest pain or shortness of breath. No wheezing. She is post to have a procedure done in 3 days and wanted to make sure it was okay. Her has URI symptoms as well. No fever. She denies nasal congestion or significant sore throat. No ear pain. Patient also has had some urinary frequency the past couple days. No hematuria. No dysuria. No back pain or abdominal pain. Showed to make sure she did not have a UTI. Review of Systems Constitutional: Negative. HENT: Negative. Respiratory: Positive for cough. Negative for chest tightness, shortness of breath and wheezing. Cardiovascular: Negative. Gastrointestinal: Negative. Genitourinary: Positive for frequency and urgency. Negative for dysuria and hematuria. Musculoskeletal: Negative. Neurological: Negative. Hematological: Negative. Psychiatric/Behavioral: Negative. All other systems reviewed and are negative. 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 Diverticulosis of colon (without mention of hemorrhage) Dry cough 05/23/2016 Ganglion of joint 07/16/2005 Generalized osteoarthrosis, unspecified site Hemorrhage of gastrointestinal tract, unspecified Hemorrhage of rectum and anus Infection of left eye Irritable bowel syndrome Osteomalacia, unspecified Other and unspecified hyperlipidemia Pneumonia, organism unspecified(486) Psoriatic arthritis (HCC) Rectocele 01/05/2011 Skin tear of lower leg without complication 05/23/2016 Sprain of unspecified site of sacroiliac region Unspecified constipation Urge incontinence mild Current Outpatient Medications Medication Sig Dispense Refill famotidine (PEPCID) 10 mg tablet Take 10 mg by mouth twice daily. hydrocortisone (ANUSOL-HC) 25 mg suppository 1 Suppository by RECTAL route twice daily as needed (hemorrhoids/rectal pain). 12 Each 3 amitriptyline (ELAVIL) 10 mg tablet Take 1 tablet by mouth daily at bedtime. 90 tablet 2 loratadine (CLARITIN) 10 mg tablet Take 1 tablet by mouth once daily. 30 tablet 11 meloxicam (MOBIC) 15 mg tablet TAKE 1 TABLET BY MOUTH ONCE DAILY 28 tablet 0 methotrexate 2.5 mg tablet Take 6 tablets once weekly,on 56 tablet 0 lisinopril (ZESTRIL, PRINIVIL) 10 mg tablet Take 1 tablet by mouth once daily. Take an extra 1/2 tablet (5 mg) if BLOOD PRESSURE is 140/90 or greater 100 tablet 3 cyclobenzaprine (FLEXERIL) 10 mg tablet Take 1 tablet by mouth twice daily as needed for Muscle Spasm. 60 tablet 0 fluorometholone (FML LIQUID FILM) 0.1 % ophthalmic suspension Use 1 Drop in both eyes once daily. Azelaic Acid (FINACEA) 15 % gel Apply to affected area once daily. 15 g 1 multivitamin with minerals (VISION/OPTIGEN) tablet Take 1 tablet by mouth once daily. CALCIUM/MAGNESIUM (CALCIUM AND MAGNESIUM ORAL) Take 3 capsules by mouth twice daily. FOLIC ACID ORAL Take by mouth. Cholecalciferol, Vitamin D3, 5,000 unit tab Take 5,000 Units by mouth once daily. zqhml-[id number]-spg-epa-fish oil-D3 350 mg-400 mg- 1,000 unit cap Take by mouth. Takes a total of 5,000 daily Lecithin 400 mg ORAL Cap Take one(1) tablet daily. 0 0 Glutamine (L-GLUTAMINE) 500 mg ORAL Cap Take one(1) tablet daily. 0 0 polyethylene glycol 3350 (MIRALAX ORAL) Take 1 Cap-Full by mouth once daily as needed. (Patient not taking: Reported on 02/16/2022) BIOTIN ORAL Take by mouth once daily. (Patient not taking: Reported on 02/16/2022) MULTIVITAMIN ORAL Take by mouth once daily. Gummies (Patient not taking: Reported on 02/16/2022) Red Yeast Rice Extract 600 mg ORAL Cap Take by mouth. Take one(1) tablet two(2) times daily. (Patient not taking: Reported on 02/16/2022) 0 VITAMIN C 500 MG ORAL TAB Take one(1) tablet daily. 0 No current facility-administered medications for this visit. PAST SURGICAL HISTORY Procedure Laterality Date ARTHRP KNE CONDYLE&PLATU MEDIAL&LAT COMPARTMENTS Right 06/03/2017 Knee replacement, total COLONOSCOPY FLX DX W/COLLJ SPEC WHEN PFRMD 04/20/2002 Colonoscopy COLONOSCOPY FLX DX W/COLLJ SPEC WHEN PFRMD 07/25/2011 Colonoscopy NEUROPLASTY &/TRANSPOS MEDIAN NRV CARPAL TUNNE 1980 Carpal tunnel decomp b/l hands NEUROPLASTY &/TRANSPOS MEDIAN NRV CARPAL TUNNE 12/18/2011 RIGHT PAST SURGICAL HISTORY OF Left laser eye surgery for glaucoma SIGMOIDOSCOPY FLX DX W/COLLJ SPEC BR/WA IF PFRMD 06/23/2007 TOTAL ABDOMINAL HYSTERECT W/WO RMVL TUBE OVARY 1988 RUBI/BSO for fibroids and bleeding TOTAL KNEE REPLACEMENT Left 03/28/2020 FAMILY HISTORY Problem Relation Age of Onset Heart Mother CHF Cancer Father prostate Psychiatry Father Cancer Brother No Known Problems Daughter No Known Problems Daughter No Known Problems Daughter Breast Cancer Maternal Aunt Social History Tobacco Use Smoking status: Never Smokeless tobacco: Never Vaping Use Vaping Use: Never used Substance Use Topics Alcohol use: No Drug use: No Objective BP 122/60 Pulse 66 Temp 36.4 C (97.5 F) Resp 16 Wt 53.1 kg (117 lb) SpO2 100% BMI 24.45 kg/m Physical Exam Vitals reviewed. Constitutional: Appearance: Normal appearance. HENT: Head: Normocephalic and atraumatic. Right Ear: Tympanic membrane, ear canal and external ear normal. Left Ear: Tympanic membrane, ear canal and external ear normal. Nose: Nose normal. Mouth/Throat: Mouth: Mucous membranes are moist. Pharynx: Oropharynx is clear. Cardiovascular: Rate and Rhythm: Normal rate and regular rhythm. Heart sounds: Normal heart sounds. Pulmonary: Effort: Pulmonary effort is normal. Breath sounds: Normal breath sounds. Abdominal: General: Abdomen is flat. Bowel sounds are normal. Palpations: Abdomen is soft. Tenderness: There is no abdominal tenderness. There is no right CVA tenderness, left CVA tenderness or guarding. Musculoskeletal: Cervical back: Neck supple. Skin: General: Skin is warm and dry. Neurological: Mental Status: She is alert. Assessment and Plan ASSESSMENT/PLAN: 1. Urinary frequency - ICD9: 788.41, ICD10: R35.0 (primary diagnosis) acute - UA negative here, sent for culture we will treat if culture indicates. - UA DIP, URINE (POC) - URINE CULTURE 2. Viral URI - ICD9: 465.9, ICD10: J06.9 - Discussed viral etiology and rationale for treatment. - Symptomatic treatment with prn analgesia - Supportive care with fluids and rest Lungs are clear here. She is oxygenating 100%. No fever. Symptoms have been for 3 days. Will rule out COVID and flu. Discussed she call her physician who is doing the procedure in 3 days when she gets her test back. Patient agreeable. - COVID WITH FLUA+B, ROUTINE Laisha Espinoza PA-C documented in this encounter [facility] 02-16-2022 Instructions Lynne Silverman APRN.[facility] - 02/16/2022 8:59 AM EST These are probiotics which are healthy bacteria that is given back to the gastrointestinal (GI) tract. They help to push out the non-healthy bacteria and stimulate a healing immune response in the gut. They do this by 1)secreting proteins that actually inhibit other worrisome bacteria, 2)making food (short-chain fatty acids) for the cells lining the colon, 3)producing B vitamins, 4)producing lactase the enzyme that helps to break down lactose, 5)and up-regulating the production of an antibody (IgA) in the GI tract that helps with the immune system along with other factors (IL10, IL-6, and TNF-alpha). They come as cpxc-zu-[id number] capsules that you take just once a day, every day to help even out the ups and downs of occasional digestive upsets such as abdominal discomfort, constipation, diarrhea, urgency, gas and bloating. Culturelle is an all-natural dietary supplement containing the probiotic, Lactobacillus rhamnosus GG (LGG ). Unlike some probiotics, commonly found in fortified foods, LGG is the only probiotic that survives the stomach and bile acids of the digestive tract, thus bringing health benefits to where it is needed most. At the time of manufacture, each CULTURELLE capsule contains a minimum of 30 billion live cells of beneficial bacteria. It provides at least 10 billion live cells at the time of use, the amount recommended by clinical science. The lactobacillus bacteria in CULTURELLE is cultured on milk proteins. The bacterial cells are washed and freeze-dried to remove nearly all of the milk protein and casein. However, trace levels--less than 15 parts per million--may remain in each capsule. CULTURELLE is lactose free, but if you are allergic to milk proteins or casein, or are unsure, check with your doctor before taking CULTURELLE . CULTURELLE does not contain artificial flavors, dyes, colors, preservatives, yeast, corn, wheat, gluten or lactose. Culturelle is available in the [facility] pharmacy and/or on-line at [email or web address] Align capsules contain Bifantis (Bifidobacterium infantis 94554), a purified, unique probiotic strain that has been clinically proven to improve digestive health. Website for more information for Align is www.M[employer]Way.Penumbra or . Alig n is also lactose free but does contain milk and soy proteins. Florajen-3 Extra strength contains: L. acidophilus, B. bifidum Bb-12, B. longum. There are 10 billion cells per capsule.freeze-dried strain (human source) of live: Lactobacillus acidophilus--over 7.5 billion Bifidobacterium bifidum Bb-12--over 6.0 billion Bifidobacterium longum--over 1.5 billion. Other ingredients: Rice maltodextrin and gelatin capsules. Non-Dairy. Does not contain yeast, sugar, soy, eggs, corn, wheat, gluten, coloring or preservatives. For information on where to buy Florajen-3 go to [email or web address]/[email or web address]/i [email or web address].cfm Any of these can be swallowed whole or opened and sprinkled onto applesauce or puddings. Should not be mixed into hot foods or acidy foods. Both are best if kept in the refrigerator. They may be available at various drugstores. documented in this encounter [facility] 02-16-2022 History of Present illness Narrative Anaya Morrow Jamariephraim is a 81 year old female who presents today for evaluation of Patient presents with: New Patient: Consult/urinary frequency CHIEF COMPLAINT & HISTORY OF PRESENT ILLNESS CC: vagina bulge 81 year old female with arthritis, COPD presents today for a bulge in the vagina, she reports that is will bother her at times when sitting. She reports frequent UTI's, symptoms include frequency. Currently taking cranberry and vit c daily Denies fever, chills, back pain. +constipation PVR 7 cc DTF:able to hold for 2-3 hours NTF:2 URGENCY:yes UUI:at times NORMA:no STRAINING:no COMPLETE EMPTYING:yes PADS PER DAY:no FLUID INTAKE: grapejuice cider cranberry juice water no caffeine s/p hysterectomy vaginal deliveries Past Urological History: Stones:no Surgery:no Tumors:no Infections:yes: see above VITALS: Height 147.3 cm (4' 10), weight 53.1 kg (117 lb). ALLERGIES: Caffeine, Codeine, Darvocet A500 [Propoxyphene N-Acetaminophen], Demerol [Meperidine (Pf)], Entex [Phenylephrine-Guaifenesin], Ephedrine, Griseofulvin, Milk Containing Products, Tramadol, Vicodin [Hydrocodone-Acetaminophen], and Zoloft [Sertraline Hcl] MEDICATIONS: Current Outpatient Medications Medication Sig Dispense Refill famotidine (PEPCID) 10 mg tablet Take 10 mg by mouth twice daily. hydrocortisone (ANUSOL-HC) 25 mg suppository 1 Suppository by RECTAL route twice daily as needed (hemorrhoids/rectal pain). 12 Each 3 amitriptyline (ELAVIL) 10 mg tablet Take 1 tablet by mouth daily at bedtime. 90 tablet 2 loratadine (CLARITIN) 10 mg tablet Take 1 tablet by mouth once daily. 30 tablet 11 meloxicam (MOBIC) 15 mg tablet TAKE 1 TABLET BY MOUTH ONCE DAILY 28 tablet 0 methotrexate 2.5 mg tablet Take 6 tablets once weekly,on 56 tablet 0 lisinopril (ZESTRIL, PRINIVIL) 10 mg tablet Take 1 tablet by mouth once daily. Take an extra 1/2 tablet (5 mg) if BLOOD PRESSURE is 140/90 or greater 100 tablet 3 cyclobenzaprine (FLEXERIL) 10 mg tablet Take 1 tablet by mouth twice daily as needed for Muscle Spasm. 60 tablet 0 fluorometholone (FML LIQUID FILM) 0.1 % ophthalmic suspension Use 1 Drop in both eyes once daily. Azelaic Acid (FINACEA) 15 % gel Apply to affected area once daily. 15 g 1 multivitamin with minerals (VISION/OPTIGEN) tablet Take 1 tablet by mouth once daily. CALCIUM/MAGNESIUM (CALCIUM AND MAGNESIUM ORAL) Take 3 capsules by mouth twice daily. FOLIC ACID ORAL Take by mouth. Cholecalciferol, Vitamin D3, 5,000 unit tab Take 5,000 Units by mouth once daily. tgacf-0q-cms-epa-fish oil-D3 350 mg-400 mg- 1,000 unit cap Take by mouth. Takes a total of 5,000 daily Lecithin 400 mg ORAL Cap Take one(1) tablet daily. 0 0 Glutamine (L-GLUTAMINE) 500 mg ORAL Cap Take one(1) tablet daily. 0 0 VITAMIN C 500 MG ORAL TAB Take one(1) tablet daily. 0 cephALEXin (KEFLEX) 500 mg capsule Take 1 capsule by mouth twice daily for 7 days. (Patient not taking: Reported on 02/16/2022) 14 capsule 0 polyethylene glycol 3350 (MIRALAX ORAL) Take 1 Cap-Full by mouth once daily as needed. (Patient not taking: Reported on 02/16/2022) BIOTIN ORAL Take by mouth once daily. (Patient not taking: Reported on 02/16/2022) MULTIVITAMIN ORAL Take by mouth once daily. Gummies (Patient not taking: Reported on 02/16/2022) Red Yeast Rice Extract 600 mg ORAL Cap Take by mouth. Take one(1) tablet two(2) times daily. (Patient not taking: Reported on 02/16/2022) 0 No current facility-administered medications for this visit. 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 Diverticulosis of colon (without mention of hemorrhage) Dry cough 05/23/2016 Ganglion of joint 07/16/2005 Generalized osteoarthrosis, unspecified site Hemorrhage of gastrointestinal tract, unspecified Hemorrhage of rectum and anus Infection of left eye Irritable bowel syndrome Osteomalacia, unspecified Other and unspecified hyperlipidemia Pneumonia, organism unspecified(486) Psoriatic arthritis (HCC) Rectocele 01/05/2011 Skin tear of lower leg without complication 05/23/2016 Sprain of unspecified site of sacroiliac region Unspecified constipation Urge incontinence mild PAST SURGICAL HISTORY: PAST SURGICAL HISTORY Procedure Laterality Date ARTHRP KNE CONDYLE&PLATU MEDIAL&LAT COMPARTMENTS Right 06/03/2017 Knee replacement, total COLONOSCOPY FLX DX W/COLLJ SPEC WHEN PFRMD 04/20/2002 Colonoscopy COLONOSCOPY FLX DX W/COLLJ SPEC WHEN PFRMD 07/25/2011 Colonoscopy NEUROPLASTY &/TRANSPOS MEDIAN NRV CARPAL TUNNE 1979 Carpal tunnel decomp b/l hands NEUROPLASTY &/TRANSPOS MEDIAN NRV CARPAL TUNNE 12/18/2011 RIGHT PAST SURGICAL HISTORY OF Left laser eye surgery for glaucoma SIGMOIDOSCOPY FLX DX W/COLLJ SPEC BR/WA IF PFRMD 06/23/2007 TOTAL ABDOMINAL HYSTERECT W/WO RMVL TUBE OVARY 1988 RUBI/BSO for fibroids and bleeding TOTAL KNEE REPLACEMENT Left 03/28/2020 FAMILY HISTORY: FAMILY HISTORY Problem Relation Age of Onset Heart Mother CHF Cancer Father prostate Psychiatry Father Cancer Brother No Known Problems Daughter No Known Problems Daughter No Known Problems Daughter Breast Cancer Maternal Aunt All histories reviewed on this date 02/16/2022: Yes REVIEW OF SYSTEMS: CONSTITUTIONAL: Patient reports no recent fever or weight loss CARDIOVASCULAR: Negative for chest pain. RESPIRATORY: Negative for cough, hemoptysis, wheezing, COPD, dyspnea or shortness of breath GI: Constipation MUSCULOSKELETAL: denies back pain or muscular weakness ENDOCRINE: Negative for cold or heat intolerance, polyuria, polydipsia and goiter All other systems reviewed and are negative other than HPI. PHYSICAL EXAM: constitutional: appears healthy in no acute distress cardiovascular: normal femoral pulses to palpate respiratory: normal respiratory motion gi: abdomen soft, non-tender without masses, hernia or organomegaly gu: external genitalia: Normal Urethal meatus: normal size and location, no lesions or prolapse. urethra: normal size and location, no lesions or prolapse. bladder: not palpable, no tenderness. vagina: normal general appearance, low estrogen, stage 4 rectocele, stage one cystocele cervix: not visualized on exam. uterus: not visualized or felt on exam. Neck: Not examined Extremities: Extremities normal. No deformities, edema, or skin discoloration. Good capillary refill. Lymphatic: No palpable lymph nodes. Neuro: Gait normal. Sensation grossly intact. RADIOLOGY REPORTS REVIEWED: Yes LAB RESULTS REVIEWED: Yes Component Latest Ref Rng & Units 02/16/2022 GLUCOSE UA (POCT) Negative mg/dL Negative BILIRUBIN UA (POCT) Negative Negative KETONE UA (POCT) Negative mg/dL Negative SPECIFIC GRAVITY UA (POCT) 1.005 - 1.030 1.010 HEMOGLOBIN/BLOOD UA (POCT) Negative Trace-intact (A) PH UA (POCT) 4.5 - 8.0 7.0 PROTEIN UA (POCT) Negative mg/dL Negative UROBILINOGEN UA (POCT) Normal E.U./dL 0.2 NITRITE UA (POCT) Negative Negative LEUKOCYTES UA (POCT) Negative Negative COLOR UA (POCT) Light yellow CLARITY UA (POCT) Clear IMAGING STUDIES INDEPENDENTLY REVIEWED: No OLD RECORDS REVIEWED: Yes: Extensive: Yes ASSESSMENT/PLAN: ASSESSMENT/PLAN: 1. Rectocele - ICD9: 618.04, ICD10: N81.6 (primary diagnosis) -stage 4 on exam -discussed strict bowel control, miralax -patient is seeing [facility] for rectal prolapse which was not present on exam today -discussed pessary placement of rectocele repair, she will meet with [facility] then decide 2. Urinary frequency - ICD9: 788.41, ICD10: R35.0 -normal daytime schedule -most likely due to large rectocele 3. Frequent UTI - ICD9: 599.0, ICD10: N39.0 -educated on prevention -strict hygiene -start daily probiotic -continue with vit c and cranberry atient is instructed to schedule a follow up as needed. Lynne Silverman APRN.[facility] documented in this encounter [facility] 02-16-2022 Nurse Note Post void bladder scan completed. 7 ml residual remaining. Results reported to Lynne Sliverman CNP documented in this encounter [facility] 02-14-2022 History of Present illness Narrative CC: Anaya Wilson is a 81 year old female who presents to the office for follow up HPI: Seen in office 6 weeks ago on 12/05/21, at that time Patient was recently at [place] [facility] 3 days ago for complaints of some rectal prolapse tonight after having multiple episodes of diarrhea after drinking cider today. She states that she saw some blood in her stool associated with this. She has a history of hemorrhoids also. She noticed the rectal prolapse after a bowel movement at 2030 tonight. Per the EMERGENCY DEPARTMENT physician she had a partial rectal prolapse that was easily reduced as well as an internal hemorrhoid. Her CBC was slightly elevated so CT abdomen pelvis was done also which showed no acute disease. Plan was to send patient home on Anusol HC suppositories and have her follow-up with surgery on-call Dr. Lagos She hasn't had any reoccurrence. Does have chronic urinary incontinence as well. Hasn't done any pelvic floor exercises. At last OFFICE VISIT on 01/22/[address] Lagos General surgeon, whom referred her to a colorectal surgeon and she wants to try to wait on this referral at this time. She isn't having any rectal symptoms. She has been doing pelvic floor PHYSICAL THERAPY with Laisha Sullivan therapist and feels this is helping her pelvic floor. She is also doing exercises at home that she has learned. 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 She is also trying to restart some of her neck exercises but hasn't been doing these regularly yet. No dizziness/LH or edema Chronic bladder urgency and frequency symptoms, no dysuria or hematuria or flank pain, urine dip today with leukocytes only Currently Bladder symptoms, chronic, intermittent, feels that she is sitting on a bulge most days. No pain. Is going to be seeing Urology specialist on Saturday for opinion. Has had pelvic floor PHYSICAL THERAPY and has been continuing to do exercises at home. Rectal prolapse history as above, She has seen Dr. Lagos General surgeon, whom referred her to a colorectal surgeon- she thought she wanted to wait on this opinion since she wasn't having any rectal symptoms. She has been doing pelvic floor PHYSICAL THERAPY with Laisha Sullivan therapist and feels this is helping her pelvic floor. She is also doing exercises at home that she has learned. She now feels she probably needs to get this testing completed since she is still having symptoms of bulge in rectal/pelvic area. 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 Diverticulosis of colon (without mention of hemorrhage) Dry cough 05/23/2016 Ganglion of joint 07/16/2005 Generalized osteoarthrosis, unspecified site Hemorrhage of gastrointestinal tract, unspecified Hemorrhage of rectum and anus Infection of left eye Irritable bowel syndrome Osteomalacia, unspecified Other and unspecified hyperlipidemia Pneumonia, organism unspecified(486) Psoriatic arthritis (HCC) Rectocele 01/05/2011 Skin tear of lower leg without complication 05/23/2016 Sprain of unspecified site of sacroiliac region Unspecified constipation Urge incontinence mild PAST SURGICAL HISTORY Procedure Laterality Date ARTHRP KNE CONDYLE&PLATU MEDIAL&LAT COMPARTMENTS Right 06/03/2017 Knee replacement, total COLONOSCOPY FLX DX W/COLLJ SPEC WHEN PFRMD 04/20/2002 Colonoscopy COLONOSCOPY FLX DX W/COLLJ SPEC WHEN PFRMD 07/25/2011 Colonoscopy NEUROPLASTY &/TRANSPOS MEDIAN NRV CARPAL TUNNE 1979 Carpal tunnel decomp b/l hands NEUROPLASTY &/TRANSPOS MEDIAN NRV CARPAL TUNNE 12/18/2011 RIGHT PAST SURGICAL HISTORY OF Left laser eye surgery for glaucoma SIGMOIDOSCOPY FLX DX W/COLLJ SPEC BR/WA IF PFRMD 06/23/2007 TOTAL ABDOMINAL HYSTERECT W/WO RMVL TUBE OVARY 1988 RUBI/BSO for fibroids and bleeding TOTAL KNEE REPLACEMENT Left 03/28/2020 Current Outpatient Medications Medication Sig cephALEXin (KEFLEX) 500 mg capsule Take 1 capsule by mouth twice daily for 7 days. amitriptyline (ELAVIL) 10 mg tablet Take 1 tablet by mouth daily at bedtime. loratadine (CLARITIN) 10 mg tablet Take 1 tablet by mouth once daily. meloxicam (MOBIC) 15 mg tablet TAKE 1 TABLET BY MOUTH ONCE DAILY methotrexate 2.5 mg tablet Take 6 tablets once weekly,on lisinopril (ZESTRIL, PRINIVIL) 10 mg tablet Take 1 tablet by mouth once daily. Take an extra 1/2 tablet (5 mg) if BLOOD PRESSURE is 140/90 or greater cyclobenzaprine (FLEXERIL) 10 mg tablet Take 1 tablet by mouth twice daily as needed for Muscle Spasm. fluorometholone (FML LIQUID FILM) 0.1 % ophthalmic suspension Use 1 Drop in both eyes once daily. Azelaic Acid (FINACEA) 15 % gel Apply to affected area once daily. multivitamin with minerals (VISION/OPTIGEN) tablet Take 1 tablet by mouth once daily. CALCIUM/MAGNESIUM (CALCIUM AND MAGNESIUM ORAL) Take 3 capsules by mouth twice daily. BIOTIN ORAL Take by mouth once daily. MULTIVITAMIN ORAL Take by mouth once daily. Gummies FOLIC ACID ORAL Take by mouth. Cholecalciferol, Vitamin D3, 5,000 unit tab Take 5,000 Units by mouth once daily. atqiy-0u-yqt-epa-fish oil-D3 350 mg-400 mg- 1,000 unit cap Take by mouth. Takes a total of 5,000 daily Red Yeast Rice Extract 600 mg ORAL Cap Take by mouth. Take one(1) tablet two(2) times daily. VITAMIN C 500 MG ORAL TAB Take one(1) tablet daily. hydrocortisone (ANUSOL-HC) 25 mg suppository 1 Suppository by RECTAL route twice daily as needed (hemorrhoids/rectal pain). polyethylene glycol 3350 (MIRALAX ORAL) Take 1 Cap-Full by mouth once daily as needed. Lecithin 400 mg ORAL Cap Take one(1) tablet daily. Glutamine (L-GLUTAMINE) 500 mg ORAL Cap Take one(1) tablet daily. No current facility-administered medications for this visit. ALLERGIES Allergen Reactions Caffeine Codeine Darvocet A500 [Prop* Vomiting Demerol [Meperidine* Vomiting Entex [Phenylephrin* Ephedrine Other: See Comments Heart palpitations Griseofulvin Milk Containing Pro* Intolerance Nasal stuffiness Tramadol Other: See Comments Nausea, vomiting, dry heaves after carpal tunnel surgery Vicodin [Hydrocodon* Itching Zoloft [Sertraline * Mental Status Change Increased anxiety and feeling of depression. Started in 2005, not noted then Social History Tobacco Use Smoking status: Never Smokeless tobacco: Never Vaping Use Vaping Use: Never used Substance Use Topics Alcohol use: No Drug use: No ROS: See HPI PE: BP 120/60 Pulse 64 Temp (Src) 97 (Left Tympanic) Resp 16 Wt 117 lb (53.1kg) Gen: A&OX3, NAD, non-toxic appearing, no distress Discussion visit present during office visit ASSESSMENT/PLAN: 1. Prolapse of intestine - ICD9: 569.89, ICD10: K63.4 (primary diagnosis) Follow up with xray testing as ordered and an appt with colorectal surgeon for opinion regarding if any surgical intervention is needed for rectal vault/pelvic 2. Pelvic floor dysfunction in female - ICD9: 618.83, ICD10: M62.89 Follow up with xray testing as ordered and an appt with colorectal surgeon for opinion regarding if any surgical intervention is needed for rectal vault/pelvic 3. Urinary frequency - ICD9: 788.41, ICD10: R35.0 recurrent Unsure if related to prolapse of bladder or other cause. Edenilson Nicholson DO Return if no improvement. Follow up with Edenilson Nicholson DO. To ER if develops chest pain, shortness of breath Discussed risks, benefits, alternatives, and potential side effects of medications. Patient/Guardian expressed understanding and agreed with the plan. See patient instructions. Edenilson Nicholson DO [address] [place] [address] documented in this encounter [facility] 02-11-2022 Miscellaneous Notes Patient given results and verbalized understanding of instructions given. Johanna Kilpatrick Please notify that the urine culture showed no infection. May continue taking the antibiotic if symptoms are improving. If symptoms persist/worsen f/u with primary care. documented in this encounter [facility] 02-10-2022 Instructions Jhonie Aguirre APRN.KEVIN - 02/10/2022 3:46 PM EST URINARY TRACT INFECTION GENERAL INFORMATION: A urinary tract infection (UTI) is an infection of the bladder or kidneys. A bladder infection, called cystitis, is the more common type. If the infection travels up to the kidneys, it is called pyelonephritis. This can be more serious. UTIs are a common problem in women. Having sexual relations can leave a woman more susceptible to developing a UTI, but it is not sexually transmitted like gonorrhea. Some women have a problem with recurrent UTIs. INSTRUCTIONS: 1. Your doctor prescribed an antibiotic to treat the UTI. Take exactly as directed. Be sure to take all the medication prescribed, even if your symptoms disappear. If you stop treatment early, the infection may not be fully treated and the symptoms could come back again. 2. Get plenty of rest. You may take acetaminophen for fever and aches. 3. Drink 6 to 8 glasses of fluids, especially water, every day. This helps wash out germs from your urinary tract. Cranberry juice or other sources of vitamin C are also good for you. 4. Urinate often, as soon as you feel the urge. Empty your bladder completely. Urinate before and after you have sex. 5. Always wipe from front to back after going to the bathroom. This pushes germs away from your bladder, rather than towards it. 6. Showers are better than baths, and you should wash the genital area daily. Avoid bubble bath or bath oils if you do take a bath. 7. Wear underwear and pantyhose with a cotton crotch. CONTACT YOUR DOCTOR: 1. You have a temperature over 102F (38.8C) after 48 hours on medication. 2. You notice blood in your urine. 3. Your symptoms don't improve in 2 days. 4. You develop nausea, vomiting, diarrhea, or a rash. 5. You develop new or unexplained symptoms. These may be related to the medication you are taking. 6. Your symptoms return after you finish treatment. RETURN TO THE EMERGENCY DEPARTMENT IF: You develop vomiting and can't keep your medication or fluids down. documented in this encounter [facility] 02-10-2022 History of Present illness Narrative Subjective HPI A nontoxic appearing female presents to urgent care with chief complaint of possible UTI. Duration of symptoms 1 day. Associated symptoms dysuria, frequency, and urgency. Patient has history of UTIs in past with similar signs and symptoms. Patient denies the use of any gdiv-thl-hvivhch medications or home remedies for symptom management. Patient states pain is a 3/10. Patient denies any fevers, flank pain, abdominal pain, nausea, vomiting, vaginal discharge, chance of STDs or urological abnormalities. Past medical history prescription medication use and labs reviewed. 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 Diverticulosis of colon (without mention of hemorrhage) Dry cough 05/23/2016 Ganglion of joint 07/16/2005 Generalized osteoarthrosis, unspecified site Hemorrhage of gastrointestinal tract, unspecified Hemorrhage of rectum and anus Infection of left eye Irritable bowel syndrome Osteomalacia, unspecified Other and unspecified hyperlipidemia Pneumonia, organism unspecified(486) Psoriatic arthritis (HCC) Rectocele 01/05/2011 Skin tear of lower leg without complication 05/23/2016 Sprain of unspecified site of sacroiliac region Unspecified constipation Urge incontinence mild PAST SURGICAL HISTORY Procedure Laterality Date ARTHRP KNE CONDYLE&PLATU MEDIAL&LAT COMPARTMENTS Right 06/03/2017 Knee replacement, total COLONOSCOPY FLX DX W/COLLJ SPEC WHEN PFRMD 04/20/2002 Colonoscopy COLONOSCOPY FLX DX W/COLLJ SPEC WHEN PFRMD 07/25/2011 Colonoscopy NEUROPLASTY &/TRANSPOS MEDIAN NRV CARPAL TUNNE 1979 Carpal tunnel decomp b/l hands NEUROPLASTY &/TRANSPOS MEDIAN NRV CARPAL TUNNE 12/18/2011 RIGHT PAST SURGICAL HISTORY OF Left laser eye surgery for glaucoma SIGMOIDOSCOPY FLX DX W/COLLJ SPEC BR/WA IF PFRMD 06/23/2007 TOTAL ABDOMINAL HYSTERECT W/WO RMVL TUBE OVARY 1988 RUBI/BSO for fibroids and bleeding TOTAL KNEE REPLACEMENT Left 03/28/2020 ALLERGIES Caffeine, Codeine, Darvocet A500 [Propoxyphene N-Acetaminophen], Demerol [Meperidine (Pf)], Entex [Phenylephrine-Guaifenesin], Ephedrine, Griseofulvin, Milk Containing Products, Tramadol, Vicodin [Hydrocodone-Acetaminophen], and Zoloft [Sertraline Hcl] MEDICATIONS amitriptyline (ELAVIL) 10 mg tablet Take 1 tablet by mouth daily at bedtime. loratadine (CLARITIN) 10 mg tablet Take 1 tablet by mouth once daily. meloxicam (MOBIC) 15 mg tablet TAKE 1 TABLET BY MOUTH ONCE DAILY methotrexate 2.5 mg tablet Take 6 tablets once weekly,on lisinopril (ZESTRIL, PRINIVIL) 10 mg tablet Take 1 tablet by mouth once daily. Take an extra 1/2 tablet (5 mg) if BLOOD PRESSURE is 140/90 or greater polyethylene glycol 3350 (MIRALAX ORAL) Take 1 Cap-Full by mouth once daily as needed. hydrocortisone (ANUSOL-HC) 25 mg suppository 1 Suppository by RECTAL route twice daily as needed (hemorrhoids/rectal pain). cyclobenzaprine (FLEXERIL) 10 mg tablet Take 1 tablet by mouth twice daily as needed for Muscle Spasm. fluorometholone (FML LIQUID FILM) 0.1 % ophthalmic suspension Use 1 Drop in both eyes once daily. Azelaic Acid (FINACEA) 15 % gel Apply to affected area once daily. multivitamin with minerals (VISION/OPTIGEN) tablet Take 1 tablet by mouth once daily. CALCIUM/MAGNESIUM (CALCIUM AND MAGNESIUM ORAL) Take 3 capsules by mouth twice daily. BIOTIN ORAL Take by mouth once daily. MULTIVITAMIN ORAL Take by mouth once daily. Gummies FOLIC ACID ORAL Take by mouth. Cholecalciferol, Vitamin D3, 5,000 unit tab Take 5,000 Units by mouth once daily. tkeqt-2p-zmw-epa-fish oil-D3 350 mg-400 mg- 1,000 unit cap Take by mouth. Takes a total of 5,000 daily Red Yeast Rice Extract 600 mg ORAL Cap Take by mouth. Take one(1) tablet two(2) times daily. Lecithin 400 mg ORAL Cap Take one(1) tablet daily. Glutamine (L-GLUTAMINE) 500 mg ORAL Cap Take one(1) tablet daily. VITAMIN C 500 MG ORAL TAB Take one(1) tablet daily. cephALEXin (KEFLEX) 500 mg capsule Take 1 capsule by mouth twice daily for 7 days. FAMILY HISTORY Problem Relation Age of Onset Heart Mother CHF Cancer Father prostate Psychiatry Father Cancer Brother No Known Problems Daughter No Known Problems Daughter No Known Problems Daughter Breast Cancer Maternal Aunt Social History Tobacco Use Smoking status: Never Smokeless tobacco: Never Vaping Use Vaping Use: Never used Substance Use Topics Alcohol use: No Drug use: No BP 112/68 Pulse (!) 58 Temp 36.8 C (98.3 F) (Tympanic) Resp 18 Wt 54.8 kg (120 lb 12.8 oz) SpO2 100% BMI 25.25 kg/m Review of Systems Constitutional: Negative for chills, fever and malaise/fatigue. HENT: Negative for congestion, ear discharge, ear pain, sinus pain and sore throat. Eyes: Negative for blurred vision, pain, discharge and redness. Respiratory: Negative for cough, hemoptysis, sputum production, shortness of breath, wheezing and stridor. Cardiovascular: Negative for chest pain. Gastrointestinal: Negative for abdominal pain, diarrhea, nausea and vomiting. Genitourinary: Positive for dysuria, frequency and urgency. Negative for flank pain and hematuria. Musculoskeletal: Negative for myalgias. Skin: Negative for itching and rash. Neurological: Negative for dizziness and headaches. Objective Physical Exam Constitutional: General: She is not in acute distress. Appearance: She is not diaphoretic. HENT: Head: Normocephalic. Mouth/Throat: Mouth: Mucous membranes are moist. Pharynx: Oropharynx is clear. No oropharyngeal exudate or posterior oropharyngeal erythema. Eyes: Conjunctiva/sclera: Conjunctivae normal. Pupils: Pupils are equal, round, and reactive to light. Cardiovascular: Rate and Rhythm: Normal rate and regular rhythm. Heart sounds: Normal heart sounds. Pulmonary: Effort: Pulmonary effort is normal. No tachypnea, accessory muscle usage or respiratory distress. Breath sounds: Normal breath sounds. No stridor. Abdominal: General: There is no distension. Palpations: Abdomen is soft. Tenderness: There is no abdominal tenderness. There is no right CVA tenderness, left CVA tenderness or rebound. Musculoskeletal: Cervical back: Normal range of motion and neck supple. No rigidity or tenderness. Lymphadenopathy: Cervical: No cervical adenopathy. Skin: General: Skin is warm and dry. Neurological: Mental Status: She is alert and oriented to person, place, and time. ASSESSMENT/PLAN: 1. Urinary frequency - ICD9: 788.41, ICD10: R35.0 - UA DIP, URINE (POC) - URINE CULTURE Recently leukocytes noted on urine dip. Previous positive urine culture. Will be placed on Keflex. Tolerated this antibiotic in the past. Follow-up with urology repeat recurrent UTIs. Patient was educated on supportive therapies. Patient will follow up with primary care provider as needed. Patient was instructed to immediately proceed to emergency room for any new, worsening, or symptoms lasting longer than anticipated. The patient's clinical presentation is otherwise unremarkable at this time. Based on exam and clinical finding, the patient is stable for discharge. Plan of care was discussed with patient. Patient verbalizes understanding and agrees to plan of care. This note was generated using [employer] software. It may contain errors in wording, punctuation, or spelling. Johnie Aguirre APRN.KEVIN documented in this encounter [facility] 02-09-2022 History of Present illness Narrative Episode Visit Count: 6 Therapist That Will Accept/Oversee The Plan Of Care: Laisha Sullivan Start of Care Date: 12/29/21 Onset Date: 12/29/16 Plan of Care Certification Date: 12/29/21 Next Certification Due Date: 02/27/22 Patient Identified by Name and Date of : Yes REHABILITATION AND SPORTS THERAPY PHYSICAL THERAPY TREATMENT NOTE ASSESSMENT: Anaya Wilson tolerated the session with no issues. She demonstrated difficulty with unchanged urinary urgency and incontinence. Patient demonstrated difficulty correctly coordinating pelvic floor muscles without compensation of surrounding muscles despite maximal cueing. Patient was frequently tearful during session, expressed frustration with POP. The patient will continue to benefit from ongoing skilled physical therapy to progress toward set goals. PLAN FOR NEXT VISIT: reassessment SUBJECTIVE: Patient Reason for Visit: Pt reports exercises and getting out of the car make her feel like she has to urinate more. Pt reports having to hold herself with a wash cloth to try to hold in urine but reports this is so normal to her that she doesn't mind. Pain: Pain Pain Level: 0 Post Treatment Pain Post Treatment Pain Level: 0 OBJECTIVE MEASURES WITH LEVEL OF FUNCTION: Pelvic Floor Urgency: Yes Frequency of Urgency Episodes: more than once a day Frequency of Leaks Secondary to Urge: more than once a day TREATMENT: Therapeutic Exercise: 1: standing quick kegals, 1x10 (max verbal cueing to avoid compensation with abdominals and gluteals) 2: *mini squat with PF bracing, 2x10 3: *standing hip abduction with PF bracing, 2x10 Skilled Intervention: Patient was educated in proper exercise technique and purpose for exercises. Reviewed and educated patient on additions/changes for home exercise program as above (*). Skilled judgment was provided in selection of appropriate interventions. Provided written instruction for home exercise program to facilitate proper performance and compliance. 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 Billing Therapeutic Exercise Treatment Minutes: 28 Self-Care/Home Management Treatment Minutes: 15 Total Treatment Time Minutes (timed/untimed): 43 Laisha Sullivan PT documented in this encounter [facility] 01-24-2022 Miscellaneous Notes Patient aware of Antibiotic being prescribed , verbalizes understanding. Key Kidd LPN Please call patient and have her start on antibiotic as below Edenilson Nicholson DO The following approved medication requests have been transmitted electronically. Requested Prescriptions Signed Prescriptions Disp Refills cephALEXin (KEFLEX) 500 mg capsule 28 capsule 0 Sig: Take 1 capsule by mouth four times daily for 7 days. Authorizing Provider: EDENILSON NICHOLSON DO Patient calling for urine culture results. Done 01/22/22. She is having urinary symptoms. Results copied from [facility]: 10,000 -<50,000 CFU/ml Streptococcus anginosus Abnormal No susceptibility testing done. Elizabeth Perez, RN Pt seen 01/22/22 & urine was sent to the lab. Pt reports she is urination more frequently than she was during appt. Urine culture pending, pt aware, Shabana Moreno LPN documented in this encounter [facility] 01-23-2022 History of Present illness Narrative Episode Visit Count: 5 Therapist That Will Accept/Oversee The Plan Of Care: Laisha Sullivan Start of Care Date: 12/29/21 Onset Date: 12/29/16 Plan of Care Certification Date: 12/29/21 Next Certification Due Date: 02/27/22 Patient Identified by Name and Date of : Yes REHABILITATION AND SPORTS THERAPY PHYSICAL THERAPY PROGRESS REPORT PLAN OF CARE UPDATE: Assessment: Anaya Wilson demonstrates improvements in stress urinary incontinence, pelvic organ prolapse symptoms. She has progressed toward goals slower than expected. Patient continues to present with impairments in decreased pelvic floor strength and coordination, urinary urgency and UUI. She will benefit from continued skilled therapy services to meet the updated goals for this plan of care as noted below. Goals for Episode of Care: created on 12/29/21 Updated on: 01/23/22 Incontinence: Patient to demonstrate independence with HEP-MET Increase strength of pelvic floor to Power: at least 3/5-NOT MET Patient able to cough, sneeze, lift and/or exercise without leaking-MET Patient to demonstrate less leaks with urge-NOT MET Patient reports urgency is experienced less than baseline / initial Evaluation-NOT MET Patient demonstrates ability to correctly isolate pelvic floor muscles-NOT MET Patient reports at least 75% improvement in POP symptoms compared to IE.-MET Patient Goals: get my muscles stronger Planned Interventions, Frequency, and Duration: 1x every other week, 4 weeks (reassess at 4 weeks and progress as indicated) Total Number of Visits Planned: 2 Patient to be seen for Therapeutic exercise ([id number]);Manual therapy ([id number]);Self-assisted management ([id number]);Patient/Family/Caregiver Education PLAN FOR NEXT VISIT: progress exercises as tolerated SUBJECTIVE: Patient Reason for Visit: Pt reports thinking she might have a UTI. Pt reports no change in urinary urgency or UUI, has to grab a rag to place near urethra to make it to the bathroom in time. Pt reports urinating frequently but states it's been like this her whole life and does not mind it. Pt reports not noticing any POP symptoms. Pt reports good compliance with HEP. Pain: Pain Pain Level: 0 Post Treatment Pain Post Treatment Pain Level: 0 PROMIS Scales Higher is Better 09/19/2016 GH Mental - Percentile 9 % T-scores: mean of general population = 50. 5 points is clinically meaningfully difference Percentiles provide an indication of how the patient's score ranks in relation to the general population. Higher percentile rankings indicate better function/quality of life. 50th percentile is the average of the general population and indicates half of respondents had a worse score. T-scores: mean of general population = 50. 5 points is clinically meaningfully difference Percentiles provide an indication of how the patient's score ranks in relation to the general population. Higher percentile rankings indicate better function/quality of life. 50th percentile is the average of the general population and indicates half of respondents had a worse score. OBJECTIVE MEASURES WITH LEVEL OF FUNCTION: Pelvic Floor Stress Incontinence: No Urgency: Yes Frequency of Urgency Episodes: more than once a day Frequency of Leaks Secondary to Urge: more than once a day Daytime Frequency (hours): 0.5-2 Pelvic Floor Muscle Assessment Consent for pelvic assessment/testing and treatment: Patient was educated regarding pelvic floor physical therapy assessment/treatment which may include pelvic floor and girdle muscle assessment externally or internally (vaginal or rectal approach).;Patient verbalized consent for the above treatment approaches today. Patient understands they have control of the treatment and an opportunity to stop treatment at any time. General Observations: Pelvic organ prolapse noted. Pelvic Floor Muscle Assessment: PERFECT;Muscle Dynamics Power: 0 (max verbal, tactile cues) Contracton Pressure: No response. Cannot perceive on finger surface Recruitment of pelvic floor muscles: Uncoordinated Extra-pelvic muscle activity: Abdominal;Gluteals;Holds breath Range of Motion: Normal Ability to Lengthen pelvic floor: Yes Pelvic Floor Manual Assessment Pelvic Floor Tenderness/Hyperactivity: Tested Vaginally in Tested Vaginally in : Supine/hooklying (No tightness/tenderness noted.) TREATMENT: Therapeutic Exercise: 1: Reassessment 2: *sidelying hip abduction, 2x10 each 3: Reviewed functional kegals Skilled Intervention: Patient was educated in proper exercise technique and purpose for exercises. Reviewed and educated patient on additions/changes for home exercise program as above (*). Skilled judgment was provided in selection of appropriate interventions. Provided written instruction for home exercise program to facilitate proper performance and compliance. Billing Therapeutic Exercise Treatment Minutes: 31 Total Treatment Time Minutes (timed/untimed): 31 Decreased visit time due to patient arriving late to appointment. Laisha Sullivan PT documented in this encounter [facility] 01-22-2022 History of Present illness Narrative CC: Anaya Wilson is a 81 year old female who presents to the office for follow up HPI: Seen in office 6 weeks ago on 12/05/21, at that time Patient was recently at [place] [facility] 3 days ago for complaints of some rectal prolapse tonight after having multiple episodes of diarrhea after drinking cider today. She states that she saw some blood in her stool associated with this. She has a history of hemorrhoids also. She noticed the rectal prolapse after a bowel movement at 2030 tonight. Per the EMERGENCY DEPARTMENT physician she had a partial rectal prolapse that was easily reduced as well as an internal hemorrhoid. Her CBC was slightly elevated so CT abdomen pelvis was done also which showed no acute disease. Plan was to send patient home on Anusol HC suppositories and have her follow-up with surgery on-call Dr. Lagos She hasn't had any reoccurrence. Does have chronic urinary incontinence as well. Hasn't done any pelvic floor exercises. Currently She has seen Dr. [facility] surgeon, whom referred her to a colorectal surgeon and she wants to try to wait on this referral at this time. She isn't having any rectal symptoms. She has been doing pelvic floor PHYSICAL THERAPY with Laisha Sullivan therapist and feels this is helping her pelvic floor. She is also doing exercises at home that she has learned. 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 She is also trying to restart some of her neck exercises but hasn't been doing these regularly yet. 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 Diverticulosis of colon (without mention of hemorrhage) Dry cough 05/23/2016 Ganglion of joint 07/16/2005 Generalized osteoarthrosis, unspecified site Hemorrhage of gastrointestinal tract, unspecified Hemorrhage of rectum and anus Infection of left eye Irritable bowel syndrome Osteomalacia, unspecified Other and unspecified hyperlipidemia Pneumonia, organism unspecified(486) Psoriatic arthritis (HCC) Rectocele 01/05/2011 Skin tear of lower leg without complication 05/23/2016 Sprain of unspecified site of sacroiliac region Unspecified constipation Urge incontinence mild PAST SURGICAL HISTORY Procedure Laterality Date ARTHRP KNE CONDYLE&PLATU MEDIAL&LAT COMPARTMENTS Right 06/03/2017 Knee replacement, total COLONOSCOPY FLX DX W/COLLJ SPEC WHEN PFRMD 04/20/2002 Colonoscopy COLONOSCOPY FLX DX W/COLLJ SPEC WHEN PFRMD 07/25/2011 Colonoscopy NEUROPLASTY &/TRANSPOS MEDIAN NRV CARPAL TUNNE 1979 Carpal tunnel decomp b/l hands NEUROPLASTY &/TRANSPOS MEDIAN NRV CARPAL TUNNE 12/18/2011 RIGHT PAST SURGICAL HISTORY OF Left laser eye surgery for glaucoma SIGMOIDOSCOPY FLX DX W/COLLJ SPEC BR/WA IF PFRMD 06/23/2007 TOTAL ABDOMINAL HYSTERECT W/WO RMVL TUBE OVARY 1988 RUBI/BSO for fibroids and bleeding TOTAL KNEE REPLACEMENT Left 03/28/2020 Current Outpatient Medications Medication Sig famotidine (PEPCID) 40 mg tablet Take 1 tablet by mouth twice daily. loratadine (CLARITIN) 10 mg tablet Take 1 tablet by mouth once daily. meloxicam (MOBIC) 15 mg tablet TAKE 1 TABLET BY MOUTH ONCE DAILY methotrexate 2.5 mg tablet Take 6 tablets once weekly,on lisinopril (ZESTRIL, PRINIVIL) 10 mg tablet Take 1 tablet by mouth once daily. Take an extra 1/2 tablet (5 mg) if BLOOD PRESSURE is 140/90 or greater hydrocortisone (ANUSOL-HC) 25 mg suppository 1 Suppository by RECTAL route twice daily as needed (hemorrhoids/rectal pain). cyclobenzaprine (FLEXERIL) 10 mg tablet Take 1 tablet by mouth twice daily as needed for Muscle Spasm. fluorometholone (FML LIQUID FILM) 0.1 % ophthalmic suspension Use 1 Drop in both eyes once daily. Azelaic Acid (FINACEA) 15 % gel Apply to affected area once daily. multivitamin with minerals (VISION/OPTIGEN) tablet Take 1 tablet by mouth once daily. CALCIUM/MAGNESIUM (CALCIUM AND MAGNESIUM ORAL) Take 3 capsules by mouth twice daily. BIOTIN ORAL Take by mouth once daily. MULTIVITAMIN ORAL Take by mouth once daily. Gummies FOLIC ACID ORAL Take by mouth. Cholecalciferol, Vitamin D3, 5,000 unit tab Take 5,000 Units by mouth once daily. fzawk-6q-czr-epa-fish oil-D3 350 mg-400 mg- 1,000 unit cap Take by mouth. Takes a total of 5,000 daily Red Yeast Rice Extract 600 mg ORAL Cap Take by mouth. Take one(1) tablet two(2) times daily. Lecithin 400 mg ORAL Cap Take one(1) tablet daily. Glutamine (L-GLUTAMINE) 500 mg ORAL Cap Take one(1) tablet daily. VITAMIN C 500 MG ORAL TAB Take one(1) tablet daily. amitriptyline (ELAVIL) 10 mg tablet Take 1 tablet by mouth daily at bedtime. polyethylene glycol 3350 (MIRALAX ORAL) Take 1 Cap-Full by mouth once daily as needed. No current facility-administered medications for this visit. ALLERGIES Allergen Reactions Caffeine Codeine Darvocet A500 [Prop* Vomiting Demerol [Meperidine* Vomiting Entex [Phenylephrin* Ephedrine Other: See Comments Heart palpitations Griseofulvin Milk Containing Pro* Intolerance Nasal stuffiness Tramadol Other: See Comments Nausea, vomiting, dry heaves after carpal tunnel surgery Vicodin [Hydrocodon* Itching Zoloft [Sertraline * Mental Status Change Increased anxiety and feeling of depression. Started in 2005, not noted then Social History Tobacco Use Smoking status: Never Smokeless tobacco: Never Vaping Use Vaping Use: Never used Substance Use Topics Alcohol use: No Drug use: No ROS: See HPI PE: BP 110/60 Pulse 60 Temp (Src) 96.4 (Left Tympanic) Resp 16 Wt 117 lb (53.1kg) Gen: A&OX3, NAD, non-toxic appearing HEENT: PERRLA, EOMs intact b/l, nares without drainage, pharynx without erythema, exudate, lesions, or drainage. Uvula midline. Neck: No LAD, no thyromegaly, no meningismus. + cervical muscle spasm left >right trapezius and levator scapulae, no spinal TTP, reduced rotation ROM to left >right side of neck CV: RRR, no murmur Lungs: CTA b/l, no wheezing No flank pain Skin: No rashes, lesions, or wounds on exposed skin. URINE POC GLUCOSE UA (POCT) Negative 01/22/2022 BILIRUBIN UA (POCT) Negative 01/22/2022 KETONE UA (POCT) Negative 01/22/2022 SPECIFIC GRAVITY UA (POCT) 1.010 01/22/2022 HEMOGLOBIN/BLOOD UA (POCT) Negative 01/22/2022 PH UA (POCT) 6.5 01/22/2022 PROTEIN UA (POCT) Negative 01/22/2022 UROBILINOGEN UA (POCT) 0.2 01/22/2022 NITRITE UA (POCT) Negative 01/22/2022 LEUKOCYTES UA (POCT) Trace 01/22/2022 COLOR UA (POCT) Yellow 01/22/2022 CLARITY UA (POCT) Clear 01/22/2022 ASSESSMENT/PLAN: 1. Urinary frequency - ICD9: 788.41, ICD10: R35.0 (primary diagnosis) Acute on chronic, Urine dip today only with leukocytes, otherwise normal. Will wait on urine culture results. - UA DIP, URINE (POC) - URINE CULTURE 2. Pelvic floor dysfunction in female - ICD9: 618.83, ICD10: M62.89 - continue pelvic floor therapy and need for exercises at home. She wants to wait on seeing colorectal surgeon at this time. 3. Prolapse of intestine - ICD9: 569.89, ICD10: K63.4 - continue pelvic floor therapy and need for exercises at home. She wants to wait on seeing colorectal surgeon at this time. 4. Neck pain - ICD9: 723.1, ICD10: M54.2 Continue use of heating pad and stretches daily as instructed, likely pain is related to muscle spasm and tension in neck 5. Osteoarthritis of spine with radiculopathy, cervical region - ICD9: 721.0, ICD10: M47.22 - see above Edenilson Nicholson DO chr Return if no improvement. Follow up with Edenilson Nicholson DO. To ER if develops chest pain, shortness of breath Discussed risks, benefits, alternatives, and potential side effects of medications. Patient/Guardian expressed understanding and agreed with the plan. See patient instructions. Edenilson Nicholson DO [address] [place] [address] documented in this encounter [facility] 01-22-2022 Instructions Edenilson Nicholson DO - 01/22/2022 2:27 PM EST Moist heating pad - rice pack tube sock for 2 min in microwave then stretch neck muscles including the turkey gobbler double chin exercise documented in this encounter [facility] 01-19-2022 Miscellaneous Notes Patient contacted and states she does not recall having a headache like this one before; states it's unusual. ER advised per provider's recommendation and pt verbalized understanding. Cherrie Harkins RN Has she ever had a headache like this before? If not, I would recommend she not wait the entire weekend to be seen and be seen in the ED. Angeline Monterroso APRN.KEVIN Triage Protocol Recommends pt to be evaluated within 24 hours. Pt has appt with Dr. Nicholson on 01/22 for 3 month f/u that was scheduled before call. Patient asking PCP to advise if she needs seen sooner than her scheduled appt on Saturday. Red flag symptoms reviewed as to when to seek ER. Please call patient with advise. Thank you. Reason for Disposition [1] New headache AND [2] age > 50 Answer Assessment - Initial Assessment Questions Patient calling to state she noticed the left side of her head aches just past her left ear area. Constant discomfort, rates it 4-5 out of 10. Began last night and continues now. Mild discomfort when turning her head side to side. Has not taken any OTC medication. Took a mobic pill about 50 minutes ago and has not lessened her discomfort. Denies any recent injury. No lumps or bumps on head. No discoloration to scalp. No rashes anywhere. Denies vision changes, weakness on one side of body, no difficulty walking or talking, no nausea, no sore throat or fever. 1. LOCATION: as above 2. ONSET: last night 3. PATTERN: constant 4. SEVERITY: moderate 5. RECURRENT SYMPTOM: no 6. CAUSE: Pt not sure 7. MIGRAINE: Not sure 8. HEAD INJURY: denies 9. OTHER SYMPTOMS: denies fever, eye pain, sore throat, or cold symptoms Protocols used: [id number] documented in this encounter [facility] 01-16-2022 History of Present illness Narrative Episode Visit Count: 4 Therapist That Will Accept/Oversee The Plan Of Care: Laisha Sullivan Start of Care Date: 12/29/21 Onset Date: 12/29/16 Plan of Care Certification Date: 12/29/21 Next Certification Due Date: 02/27/22 Patient Identified by Name and Date of : Yes REHABILITATION AND SPORTS THERAPY PHYSICAL THERAPY TREATMENT NOTE ASSESSMENT: Anaya Wilson tolerated the session with no issues and improved symptoms. She demonstrated difficulty with unchanged urinary urgency and incontinence. The patient will continue to benefit from ongoing skilled physical therapy to progress toward set goals. PLAN FOR NEXT VISIT: reassessment SUBJECTIVE: Patient Reason for Visit: Pt reports not filling out bladder diary, tried jotting down a few times when she urinated on scrap paper but not for the full day. Pt reports no change in urinary urgency or incontinence. Pt reports good compliance with HEP. Pt reports feeling like she has a UTI, therapist recommended pt to go to express care or contact physician for further testing if desired, pt verbalized understanding. Pain: Pain Pain Level: 2 Pain Location: Vaginal Description: Burning Frequency: Intermittent Post Treatment Pain Post Treatment Pain Level: 0 OBJECTIVE MEASURES WITH LEVEL OF FUNCTION: Pelvic Floor Urgency: Yes Frequency of Urgency Episodes: more than once a day Frequency of Leaks Secondary to Urge: more than once a day TREATMENT: Therapeutic Exercise: 1: kegal holds, 3sec hold with 3sec rest, 1x10 2: hooklying hip abduction, L4 TB, 1x10 3: *posterior pelvic tilt, 2x10 4: *clamshells, 2x10 each Skilled Intervention: Patient was educated in proper exercise technique and purpose for exercises. Reviewed and educated patient on additions/changes for home exercise program as above (*). Skilled judgment was provided in selection of appropriate interventions. Provided written instruction for home exercise program to facilitate proper performance and compliance. Billing Therapeutic Exercise Treatment Minutes: 34 Total Treatment Time Minutes (timed/untimed): 34 Decreased visit time due to patient arriving late to appointment. Laisha Sullivan PT documented in this encounter [facility] 01-14-2022 Miscellaneous Notes Patient notified of results, verbalized understanding of instructions given. Noemi Steinberg MA No bacterial growth noted on urine culture. Symptoms persist follow-up with PCP. Johnie Aguirre APRN.KEVIN documented in this encounter [facility] 01-12-2022 History of Present illness Narrative CC: Patient presents with: Urinary Problem: Pt reported frequency, burning with urination, onset AM. HPI Anaya Wilson is a 81 year old female who presents with complaint of possible UTI. These symptoms have been present for 1 days. Associated symptoms: frequency Denies: burning, backpain, fever, chills, sweats, abdominal pain, flank pain, and vaginal itching Treatments: nothing The ROS was otherwise negative. PMH, Medications, labs, allergies, and recent past visits with PCP were reviewed and updated as able. 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 Diverticulosis of colon (without mention of hemorrhage) Dry cough 05/23/2016 Ganglion of joint 07/16/2005 Generalized osteoarthrosis, unspecified site Hemorrhage of gastrointestinal tract, unspecified Hemorrhage of rectum and anus Infection of left eye Irritable bowel syndrome Osteomalacia, unspecified Other and unspecified hyperlipidemia Pneumonia, organism unspecified(486) Psoriatic arthritis (HCC) Rectocele 01/05/2011 Skin tear of lower leg without complication 05/23/2016 Sprain of unspecified site of sacroiliac region Unspecified constipation Urge incontinence mild PAST SURGICAL HISTORY Procedure Laterality Date ARTHRP KNE CONDYLE&PLATU MEDIAL&LAT COMPARTMENTS Right 06/03/2017 Knee replacement, total COLONOSCOPY FLX DX W/COLLJ SPEC WHEN PFRMD 04/20/2002 Colonoscopy COLONOSCOPY FLX DX W/COLLJ SPEC WHEN PFRMD 07/25/2011 Colonoscopy NEUROPLASTY &/TRANSPOS MEDIAN NRV CARPAL TUNNE 1979 Carpal tunnel decomp b/l hands NEUROPLASTY &/TRANSPOS MEDIAN NRV CARPAL TUNNE 12/18/2011 RIGHT PAST SURGICAL HISTORY OF Left laser eye surgery for glaucoma SIGMOIDOSCOPY FLX DX W/COLLJ SPEC BR/WA IF PFRMD 06/23/2007 TOTAL ABDOMINAL HYSTERECT W/WO RMVL TUBE OVARY 1988 RUBI/BSO for fibroids and bleeding TOTAL KNEE REPLACEMENT Left 03/28/2020 ALLERGIES Caffeine, Codeine, Darvocet A500 [Propoxyphene N-Acetaminophen], Demerol [Meperidine (Pf)], Entex [Phenylephrine-Guaifenesin], Ephedrine, Griseofulvin, Milk Containing Products, Tramadol, Vicodin [Hydrocodone-Acetaminophen], and Zoloft [Sertraline Hcl] MEDICATIONS famotidine (PEPCID) 40 mg tablet Take 1 tablet by mouth twice daily. loratadine (CLARITIN) 10 mg tablet Take 1 tablet by mouth once daily. meloxicam (MOBIC) 15 mg tablet TAKE 1 TABLET BY MOUTH ONCE DAILY methotrexate 2.5 mg tablet Take 6 tablets once weekly,on lisinopril (ZESTRIL, PRINIVIL) 10 mg tablet Take 1 tablet by mouth once daily. Take an extra 1/2 tablet (5 mg) if BLOOD PRESSURE is 140/90 or greater polyethylene glycol 3350 (MIRALAX ORAL) Take 1 Cap-Full by mouth once daily as needed. predniSONE (DELTASONE) 10 mg tablet Take 20mg (2 tabs)/day x1 week, then 10mg (1 tab)/day x1 week, then stop amitriptyline (ELAVIL) 10 mg tablet Take 1 tablet by mouth daily at bedtime. hydrocortisone (ANUSOL-HC) 25 mg suppository 1 Suppository by RECTAL route twice daily as needed (hemorrhoids/rectal pain). cyclobenzaprine (FLEXERIL) 10 mg tablet Take 1 tablet by mouth twice daily as needed for Muscle Spasm. fluorometholone (FML LIQUID FILM) 0.1 % ophthalmic suspension Use 1 Drop in both eyes once daily. Azelaic Acid (FINACEA) 15 % gel Apply to affected area once daily. multivitamin with minerals (VISION/OPTIGEN) tablet Take 1 tablet by mouth once daily. CALCIUM/MAGNESIUM (CALCIUM AND MAGNESIUM ORAL) Take 3 capsules by mouth twice daily. BIOTIN ORAL Take by mouth once daily. MULTIVITAMIN ORAL Take by mouth once daily. Gummies FOLIC ACID ORAL Take by mouth. Cholecalciferol, Vitamin D3, 5,000 unit tab Take 5,000 Units by mouth once daily. qrrce-7k-uqk-epa-fish oil-D3 350 mg-400 mg- 1,000 unit cap Take by mouth. Takes a total of 5,000 daily Red Yeast Rice Extract 600 mg ORAL Cap Take by mouth. Take one(1) tablet two(2) times daily. Lecithin 400 mg ORAL Cap Take one(1) tablet daily. Glutamine (L-GLUTAMINE) 500 mg ORAL Cap Take one(1) tablet daily. VITAMIN C 500 MG ORAL TAB Take one(1) tablet daily. FAMILY HISTORY Problem Relation Age of Onset Heart Mother CHF Cancer Father prostate Psychiatry Father Cancer Brother No Known Problems Daughter No Known Problems Daughter No Known Problems Daughter Breast Cancer Maternal Aunt Social History Tobacco Use Smoking status: Never Smokeless tobacco: Never Vaping Use Vaping Use: Never used Substance Use Topics Alcohol use: No Drug use: No ASSESSMENT/PLAN: 1. Urinary frequency - ICD9: 788.41, ICD10: R35.0 - UA DIP, URINE (POC) - URINE CULTURE At this time no treatment. Will treat if culture comes back positive. Potential red flag symptoms discussed with the patient. Reviewed appropriate action plan to take if red flag symptoms occur. Patient agreeable to treatment plan. Claudia Jones APRN.KEVIN documented in this encounter [facility] 01-12-2022 Miscellaneous Notes Patient calls for urinary frequency. Nurse triage completed. See provider within 24 hours. Patient going to go to for evaluation. Care advice reviewed. Patient verbalizes understanding. Reason for Disposition Urinating more frequently than usual (i.e., frequency) Answer Assessment - Initial Assessment Questions 1. SYMPTOM: Urinary Frequency 2. ONSET:A few hours a go. 3. PAIN: No 4. CAUSE: Patient thinks a urinary tract infection. 5. OTHER SYMPTOMS: No flank pain, blood in urine, or pain with urination. Afebrile. Protocols used: Urinary [id number] documented in this encounter [facility] 12-27-2021 Miscellaneous Notes Agree with below Edenilson Nicholson DO Patient called with complaints of nose bleed this am. States had not had one in several years. Was out raking leaves prior to bleed. It did stop. She does have high blood pressure but had not checked blood pressure prior to calling. Denies any headaches. Did encourage patient to keep eye on blood pressure and if elevated to call back. Explained that if bleeding starts back up again and will not stop to go to ER. Encourage normal saline nasal spray to keep nares moist. documented in this encounter [facility] 12-22-2021 History of Present illness Narrative Images from the original note were not included. DEPARTMENT OF ORTHOPAEDICS CC: Follow-up visit after knee replacement HPI: Ms. Wilson is here today for her 2 year clinical follow up status post left total knee replacement and 4 year follow up right total knee. Since her last visit Ms. Wilson conveys the interval has been complicated by bilateral knee pain. No injuries pain is an achjing pain related to activity. Anaya states when she does her exercises regularly the pain does seem to improve. Pleased with outcome: Yes Pain? 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 Diverticulosis of colon (without mention of hemorrhage) Dry cough 05/23/2016 Ganglion of joint 07/16/2005 Generalized osteoarthrosis, unspecified site Hemorrhage of gastrointestinal tract, unspecified Hemorrhage of rectum and anus Infection of left eye Irritable bowel syndrome Osteomalacia, unspecified Other and unspecified hyperlipidemia Pneumonia, organism unspecified(486) Psoriatic arthritis (HCC) Rectocele 01/05/2011 Skin tear of lower leg without complication 05/23/2016 Sprain of unspecified site of sacroiliac region Unspecified constipation Urge incontinence mild PAST SURGICAL HISTORY Procedure Laterality Date ARTHRP KNE CONDYLE&PLATU MEDIAL&LAT COMPARTMENTS Right 06/03/2017 Knee replacement, total COLONOSCOPY FLX DX W/COLLJ SPEC WHEN PFRMD 04/20/2002 Colonoscopy COLONOSCOPY FLX DX W/COLLJ SPEC WHEN PFRMD 07/25/2011 Colonoscopy NEUROPLASTY &/TRANSPOS MEDIAN NRV CARPAL TUNNE 1980 Carpal tunnel decomp b/l hands NEUROPLASTY &/TRANSPOS MEDIAN NRV CARPAL TUNNE 12/18/2011 RIGHT PAST SURGICAL HISTORY OF Left laser eye surgery for glaucoma SIGMOIDOSCOPY FLX DX W/COLLJ SPEC BR/WA IF PFRMD 06/23/2007 TOTAL ABDOMINAL HYSTERECT W/WO RMVL TUBE OVARY 1988 RUBI/BSO for fibroids and bleeding TOTAL KNEE REPLACEMENT Left 03/28/2020 Current Outpatient Medications Medication Sig Dispense Refill famotidine (PEPCID) 40 mg tablet Take 1 tablet by mouth twice daily. 180 tablet 1 loratadine (CLARITIN) 10 mg tablet Take 1 tablet by mouth once daily. 30 tablet 11 meloxicam (MOBIC) 15 mg tablet TAKE 1 TABLET BY MOUTH ONCE DAILY 28 tablet 0 methotrexate 2.5 mg tablet Take 6 tablets once weekly,on 56 tablet 0 lisinopril (ZESTRIL, PRINIVIL) 10 mg tablet Take 1 tablet by mouth once daily. Take an extra 1/2 tablet (5 mg) if BLOOD PRESSURE is 140/90 or greater 100 tablet 3 polyethylene glycol 3350 (MIRALAX ORAL) Take 1 Cap-Full by mouth once daily as needed. predniSONE (DELTASONE) 10 mg tablet Take 20mg (2 tabs)/day x1 week, then 10mg (1 tab)/day x1 week, then stop 21 tablet 0 amitriptyline (ELAVIL) 10 mg tablet Take 1 tablet by mouth daily at bedtime. 90 tablet 2 hydrocortisone (ANUSOL-HC) 25 mg suppository 1 Suppository by RECTAL route twice daily as needed (hemorrhoids/rectal pain). 12 Each 3 cyclobenzaprine (FLEXERIL) 10 mg tablet Take 1 tablet by mouth twice daily as needed for Muscle Spasm. 60 tablet 0 fluorometholone (FML LIQUID FILM) 0.1 % ophthalmic suspension Use 1 Drop in both eyes once daily. Azelaic Acid (FINACEA) 15 % gel Apply to affected area once daily. 15 g 1 multivitamin with minerals (VISION/OPTIGEN) tablet Take 1 tablet by mouth once daily. CALCIUM/MAGNESIUM (CALCIUM AND MAGNESIUM ORAL) Take 3 capsules by mouth twice daily. BIOTIN ORAL Take by mouth once daily. MULTIVITAMIN ORAL Take by mouth once daily. Gummies FOLIC ACID ORAL Take by mouth. Cholecalciferol, Vitamin D3, 5,000 unit tab Take 5,000 Units by mouth once daily. echnm-4c-nyo-epa-fish oil-D3 350 mg-400 mg- 1,000 unit cap Take by mouth. Takes a total of 5,000 daily Red Yeast Rice Extract 600 mg ORAL Cap Take by mouth. Take one(1) tablet two(2) times daily. 0 Lecithin 400 mg ORAL Cap Take one(1) tablet daily. 0 0 Glutamine (L-GLUTAMINE) 500 mg ORAL Cap Take one(1) tablet daily. 0 0 VITAMIN C 500 MG ORAL TAB Take one(1) tablet daily. 0 No current facility-administered medications for this visit. ALLERGIES Allergen Reactions Caffeine Codeine Darvocet A500 [Prop* Vomiting Demerol [Meperidine* Vomiting Entex [Phenylephrin* Ephedrine Other: See Comments Heart palpitations Griseofulvin Milk Containing Pro* Intolerance Nasal stuffiness Tramadol Other: See Comments Nausea, vomiting, dry heaves after carpal tunnel surgery Vicodin [Hydrocodon* Itching Zoloft [Sertraline * Mental Status Change Increased anxiety and feeling of depression. Started in 2005, not noted then FAMILY HISTORY Problem Relation Age of Onset Heart Mother CHF Cancer Father prostate Psychiatry Father Cancer Brother No Known Problems Daughter No Known Problems Daughter No Known Problems Daughter Breast Cancer Maternal Aunt Social History Tobacco Use Smoking status: Never Smokeless tobacco: Never Vaping Use Vaping Use: Never used Substance Use Topics Alcohol use: No Drug use: No EXAMINATION: GENERAL:no apparent distress RESP:Unlabored with no shortness of breath CV: No extremity swelling, varices, edema, pallor, erythema Ms. Wilson has no difficulty arising out of a chair and has no difficulty ambulating in the exam room. her gait was normal, able to toe walk without difficulty, and able to heel walk without difficulty. LOWER EXTREMITIES: On the exam table seated and supine, hip range of motion bilaterally was symmetric, unrestricted and non-painful. No trochanteric pain to palpation. Straight leg raise and femoral nerve stretch tests were negative for acute radicular symptoms to suggest spine problems. Examination of the right knee reveals Single previous incisions and has no erythema, warmth or tenderness. Range of motion is 3 degrees in extension and 120 degrees of flexion actively. Mild varus-valgus instability with patella tracking midline. No patellofemoral crepitus. Examination of the left knee reveals Single previous incisions and has no erythema, warmth or tenderness. Range of motion is 5 degrees in extension and 120 degrees of flexion actively. No varus-valgus instability with patella tracking midline. No patellofemoral crepitus. Both lower extremities were neurovascularly intact, has no evidence of cellulitis, and has no distal swelling. X-RAYS: bilateral Triathlon cruciate retained total knee showing good component sizing, position, and alignment. The patella tracks midline. Radiographic review has no findings of loosening, has no findings of wear, and has no other complicating process. ASSESSMENT: S/P bilateral total knee arthroplasty and experiencing pain from low back and bilatetral knee flexion contracture. PLAN: Continue home exercise program , quad sets, low back stretching Follow up will be in 1 year.. If there are any questions or problems, patient instructed to call the office. Rx Drug Management: No prescription given at today's appointment. Michael Del Casitllo PA-C documented in this encounter [facility] 12-22-2021 Miscellaneous Notes Radiology Service Progress Note PATIENT NAME: Anaya Wilson DATE OF SERVICE: December 22, 2021 TIME: 12:34 PM PATIENT IDENTITY VERIFICATION COMPLETED USING TWO (2) IDENTIFIERS: Name and Date of confirmed by patient verbally. FALL SCREENING: Has the patient had 2 falls in the last year or 1 fall with injury or currently using an Ambulatory Assistive Device (Walker, Cane, Wheelchair, Crutches, etc.)? No PATIENT GENDER DATA: Female. status: : No status: NO. PATIENT RELEVANT IMPLANT DATA REVIEWED: Not Applicable RADIOLOGY DEPARTMENT: General X-ray: Exam(s) Completed: Lower Extremity X-Ray(s): Knee, AP / Lat / Merchant Bilateral PERIPHERAL IV DATA: Not applicable SIGNED BY: RT Jolynn(R) December 22, 2021 12:34 PM documented in this encounter [facility] 12-06-2021 Miscellaneous Notes Addended by: YI GONSALVES on: 12/06/2021 01:30 PM Modules accepted: Orders documented in this encounter [facility] 12-06-2021 History of Present illness Narrative HISTORY AND PHYSICAL Anaya Morrow Jaylyn 1940 REFERRING PHYSICIAN: Neal Ware* CHIEF COMPLAINT: Consult ([facility] follow up) HPI: The patient is a 81 year old female with a complaint of rectal prolapse and incidental finding of rectocele versus enterocele and recurring urinary tract infections. The patient notes a longstanding history of constipation and defecation difficulties. The patient was taking a cider cleanse. She had multiple episodes of loose or diarrheal stools noted a small amount of blood but then felt tissue prolapsing from her rectum. She did not actually see this tissue but could feel it. She is uncertain how far this was sticking out. She then presented to [facility] emergency department on December 02, 2021. She was seen in the emergency department by Dr. Ware who felt she had a rectal prolapse. The exact length with is not described and this was reduced. A CT scan of the abdomen pelvis was obtained which demonstrated no abnormalities. The patient was discharged and referred to my office. In discussions with the patient, she states she has a history of a rectocele. She had seen a Dr. Zhou, a colorectal surgeon, in the past with the most recent visit in 2019 who at the time just recommended fiber supplementation to avoid constipation. The patient notes additionally that she now has bulging out of her vagina which has become worse over the last few years. He also notes a history of recurring bladder infections. She had 3 vaginal births. She recurs she did have an episiotomy and then she had a total abdominal hysterectomy in 1988. 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 Diverticulosis of colon (without mention of hemorrhage) Dry cough 05/23/2016 Ganglion of joint 07/16/2005 Generalized osteoarthrosis, unspecified site Hemorrhage of gastrointestinal tract, unspecified Hemorrhage of rectum and anus Infection of left eye Irritable bowel syndrome Osteomalacia, unspecified Other and unspecified hyperlipidemia Pneumonia, organism unspecified(486) Psoriatic arthritis (HCC) Rectocele 01/05/2011 Skin tear of lower leg without complication 05/23/2016 Sprain of unspecified site of sacroiliac region Unspecified constipation Urge incontinence mild PAST SURGICAL HISTORY Procedure Laterality Date ARTHRP KNE CONDYLE&PLATU MEDIAL&LAT COMPARTMENTS Right 06/03/2017 Knee replacement, total COLONOSCOPY FLX DX W/COLLJ SPEC WHEN PFRMD 04/20/2002 Colonoscopy COLONOSCOPY FLX DX W/COLLJ SPEC WHEN PFRMD 07/25/2011 Colonoscopy NEUROPLASTY &/TRANSPOS MEDIAN NRV CARPAL TUNNE 1979 Carpal tunnel decomp b/l hands NEUROPLASTY &/TRANSPOS MEDIAN NRV CARPAL TUNNE 12/18/2011 RIGHT PAST SURGICAL HISTORY OF Left laser eye surgery for glaucoma SIGMOIDOSCOPY FLX DX W/COLLJ SPEC BR/WA IF PFRMD 06/23/2007 TOTAL ABDOMINAL HYSTERECT W/WO RMVL TUBE OVARY 1988 RUBI/BSO for fibroids and bleeding TOTAL KNEE REPLACEMENT Left 03/28/2020 Current Outpatient Medications Medication Sig hydrocortisone (HEMORRHOIDAL HC) 25 mg suppository 1 Suppository by RECTAL route twice daily for 7 days. famotidine (PEPCID) 40 mg tablet Take 1 tablet by mouth twice daily. loratadine (CLARITIN) 10 mg tablet Take 1 tablet by mouth once daily. meloxicam (MOBIC) 15 mg tablet TAKE 1 TABLET BY MOUTH ONCE DAILY methotrexate 2.5 mg tablet Take 6 tablets once weekly,on lisinopril (ZESTRIL, PRINIVIL) 10 mg tablet Take 1 tablet by mouth once daily. Take an extra 1/2 tablet (5 mg) if BLOOD PRESSURE is 140/90 or greater polyethylene glycol 3350 (MIRALAX ORAL) Take 1 Cap-Full by mouth once daily as needed. predniSONE (DELTASONE) 10 mg tablet Take 20mg (2 tabs)/day x1 week, then 10mg (1 tab)/day x1 week, then stop amitriptyline (ELAVIL) 10 mg tablet Take 1 tablet by mouth daily at bedtime. hydrocortisone (ANUSOL-HC) 25 mg suppository 1 Suppository by RECTAL route twice daily as needed (hemorrhoids/rectal pain). cyclobenzaprine (FLEXERIL) 10 mg tablet Take 1 tablet by mouth twice daily as needed for Muscle Spasm. fluorometholone (FML LIQUID FILM) 0.1 % ophthalmic suspension Use 1 Drop in both eyes once daily. Azelaic Acid (FINACEA) 15 % gel Apply to affected area once daily. multivitamin with minerals (VISION/OPTIGEN) tablet Take 1 tablet by mouth once daily. CALCIUM/MAGNESIUM (CALCIUM AND MAGNESIUM ORAL) Take 3 capsules by mouth twice daily. BIOTIN ORAL Take by mouth once daily. MULTIVITAMIN ORAL Take by mouth once daily. Gummies FOLIC ACID ORAL Take by mouth. Cholecalciferol, Vitamin D3, 5,000 unit tab Take 5,000 Units by mouth once daily. fdccd-0q-iod-epa-fish oil-D3 350 mg-400 mg- 1,000 unit cap Take by mouth. Takes a total of 5,000 daily Red Yeast Rice Extract 600 mg ORAL Cap Take by mouth. Take one(1) tablet two(2) times daily. Lecithin 400 mg ORAL Cap Take one(1) tablet daily. Glutamine (L-GLUTAMINE) 500 mg ORAL Cap Take one(1) tablet daily. VITAMIN C 500 MG ORAL TAB Take one(1) tablet daily. No current facility-administered medications for this visit. ALLERGIES: Caffeine, Codeine, Darvocet A500 [Propoxyphene N-Acetaminophen], Demerol [Meperidine (Pf)], Entex [Phenylephrine-Guaifenesin], Ephedrine, Griseofulvin, Milk Containing Products, Tramadol, Vicodin [Hydrocodone-Acetaminophen], and Zoloft [Sertraline Hcl] PERSONAL HISTORY: Social History Tobacco Use Smoking status: Never Smokeless tobacco: Never Vaping Use Vaping Use: Never used Substance Use Topics Alcohol use: No Drug use: No FAMILY HISTORY: FAMILY HISTORY Problem Relation Age of Onset Heart Mother CHF Cancer Father prostate Psychiatry Father Cancer Brother No Known Problems Daughter No Known Problems Daughter No Known Problems Daughter Breast Cancer Maternal Aunt REVIEW OF SYMPTOMS: The review of systems data was entered by the nurse and reviewed by me There are no exam notes on file for this visit. PHYSICAL EXAMINATION: General: The patient is 81 year old female, well nourished, well hydrated in no acute distress. The patient is oriented to time, place, and person. VITALS: Blood pressure 137/69, pulse 63, temperature 36.4 C (97.5 F), height 147.3 cm (4' 10), weight 52.7 kg (116 lb 3.2 oz), SpO2 100 %. HEENT: Normal cephalic, ataumatic, pupils are equally round, sclera are anicteric, mucous membranes are moist, oropharynx is clear. Neck has no masses, asymmetry or lymphadenopathy. Thyroid is unremarkable. Respiratory: Clear to auscultation and percussion. Normal respiratory excursion and pattern. Cardiac: Examination is regular rate and rhythm. Abdominal exam: Soft, nontender, with no palpable masses. No hepatosplenomegaly. No palpable hernias. Rectal exam: Mixed slightly prolapsing hemorrhoids without obvious rectal prolapse currently. There is a visible third-degree prolapsing out the posterior vagina rectocele versus enterocele. With straining this prolapses further. The patient does not have rectal prolapse with straining. A digital rectal exam with the patient prolapsing her rectocele versus enterocele does not have my finger drop-in to the vagina making me feel this is more likely an enterocele than a true rectocele. Extremities: no clubbing, cyanosis or edema. No adenopathy. Other: LABORATORY VALUES: As Noted RADIOLOGIC STUDIES: As Noted Assessment IMPRESSION: ER notification of rectal prolapse. Patient with enterocele versus rectocele. PLAN: Given the patient's questionable rectal prolapse versus hemorrhoidal prolapse, enterocele versus rectocele and recurring urinary tract infections, I plan to refer her to the pelvic floor clinic at [facility] for evaluation and consideration of treatment for the above issues. 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 Edenilson Nicholson DO via shared medical record. This note will be forwarded to Dr. Edenilson Nicholson DO. Return to Clinic: The patient is instructed to follow-up with me as needed. Juan Lagos MD documented in this encounter [facility] 12-05-2021 History of Present illness Narrative CC: Anaya Wilson is a 81 year old female who presents to the office for EMERGENCY DEPARTMENT follow up HPI: Patient was recently at [place] EM[facility]Y DEPARTMENT 3 days ago for complaints of some rectal prolapse tonight after having multiple episodes of diarrhea after drinking cider today. She states that she saw some blood in her stool associated with this. She has a history of hemorrhoids also. She noticed the rectal prolapse after a bowel movement at 2030 tonight. Per the EMERGENCY DEPARTMENT physician she had a partial rectal prolapse that was easily reduced as well as an internal hemorrhoid. Her CBC was slightly elevated so CT abdomen pelvis was done also which showed no acute disease. Plan was to send patient home on Anusol HC suppositories and have her follow-up with surgery on-call Dr. Lagos She hasn't had any reoccurrence. Does have chronic urinary incontinence as well. Hasn't done any pelvic floor exercises. 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 Diverticulosis of colon (without mention of hemorrhage) Dry cough 05/23/2016 Ganglion of joint 07/16/2005 Generalized osteoarthrosis, unspecified site Hemorrhage of gastrointestinal tract, unspecified Hemorrhage of rectum and anus Infection of left eye Irritable bowel syndrome Osteomalacia, unspecified Other and unspecified hyperlipidemia Pneumonia, organism unspecified(486) Psoriatic arthritis (HCC) Rectocele 01/05/2011 Skin tear of lower leg without complication 05/23/2016 Sprain of unspecified site of sacroiliac region Unspecified constipation Urge incontinence mild PAST SURGICAL HISTORY Procedure Laterality Date ARTHRP KNE CONDYLE&PLATU MEDIAL&LAT COMPARTMENTS Right 06/03/2017 Knee replacement, total COLONOSCOPY FLX DX W/COLLJ SPEC WHEN PFRMD 04/20/2002 Colonoscopy COLONOSCOPY FLX DX W/COLLJ SPEC WHEN PFRMD 07/25/2011 Colonoscopy NEUROPLASTY &/TRANSPOS MEDIAN NRV CARPAL TUNNE 1979 Carpal tunnel decomp b/l hands NEUROPLASTY &/TRANSPOS MEDIAN NRV CARPAL TUNNE 12/18/2011 RIGHT PAST SURGICAL HISTORY OF Left laser eye surgery for glaucoma SIGMOIDOSCOPY FLX DX W/COLLJ SPEC BR/WA IF PFRMD 06/23/2007 TOTAL ABDOMINAL HYSTERECT W/WO RMVL TUBE OVARY 1988 RUBI/BSO for fibroids and bleeding TOTAL KNEE REPLACEMENT Left 03/28/2020 Current Outpatient Medications Medication Sig hydrocortisone (HEMORRHOIDAL HC) 25 mg suppository 1 Suppository by RECTAL route twice daily for 7 days. loratadine (CLARITIN) 10 mg tablet Take 1 tablet by mouth once daily. meloxicam (MOBIC) 15 mg tablet TAKE 1 TABLET BY MOUTH ONCE DAILY methotrexate 2.5 mg tablet Take 6 tablets once weekly,on lisinopril (ZESTRIL, PRINIVIL) 10 mg tablet Take 1 tablet by mouth once daily. Take an extra 1/2 tablet (5 mg) if BLOOD PRESSURE is 140/90 or greater amitriptyline (ELAVIL) 10 mg tablet Take 1 tablet by mouth daily at bedtime. hydrocortisone (ANUSOL-HC) 25 mg suppository 1 Suppository by RECTAL route twice daily as needed (hemorrhoids/rectal pain). cyclobenzaprine (FLEXERIL) 10 mg tablet Take 1 tablet by mouth twice daily as needed for Muscle Spasm. fluorometholone (FML LIQUID FILM) 0.1 % ophthalmic suspension Use 1 Drop in both eyes once daily. Azelaic Acid (FINACEA) 15 % gel Apply to affected area once daily. multivitamin with minerals (VISION/OPTIGEN) tablet Take 1 tablet by mouth once daily. CALCIUM/MAGNESIUM (CALCIUM AND MAGNESIUM ORAL) Take 3 capsules by mouth twice daily. BIOTIN ORAL Take by mouth once daily. MULTIVITAMIN ORAL Take by mouth once daily. Gummies FOLIC ACID ORAL Take by mouth. Cholecalciferol, Vitamin D3, 5,000 unit tab Take 5,000 Units by mouth once daily. pqgzu-4g-kzj-epa-fish oil-D3 350 mg-400 mg- 1,000 unit cap Take by mouth. Takes a total of 5,000 daily Red Yeast Rice Extract 600 mg ORAL Cap Take by mouth. Take one(1) tablet two(2) times daily. Lecithin 400 mg ORAL Cap Take one(1) tablet daily. Glutamine (L-GLUTAMINE) 500 mg ORAL Cap Take one(1) tablet daily. VITAMIN C 500 MG ORAL TAB Take one(1) tablet daily. famotidine (PEPCID) 40 mg tablet Take 1 tablet by mouth twice daily. polyethylene glycol 3350 (MIRALAX ORAL) Take 1 Cap-Full by mouth once daily as needed. predniSONE (DELTASONE) 10 mg tablet Take 20mg (2 tabs)/day x1 week, then 10mg (1 tab)/day x1 week, then stop No current facility-administered medications for this visit. ALLERGIES Allergen Reactions Caffeine Codeine Darvocet A500 [Prop* Vomiting Demerol [Meperidine* Vomiting Entex [Phenylephrin* Ephedrine Other: See Comments Heart palpitations Griseofulvin Milk Containing Pro* Intolerance Nasal stuffiness Tramadol Other: See Comments Nausea, vomiting, dry heaves after carpal tunnel surgery Vicodin [Hydrocodon* Itching Zoloft [Sertraline * Mental Status Change Increased anxiety and feeling of depression. Started in 2005, not noted then Social History Tobacco Use Smoking status: Never Smokeless tobacco: Never Vaping Use Vaping Use: Never used Substance Use Topics Alcohol use: No Drug use: No ROS: See HPI PE: BP 116/60 Pulse 56 Temp (Src) 96.6 (Temporal) Resp 16 Wt 117 lb (53.1kg) Gen: A&OX3, NAD, non-toxic appearing HEENT: PERRLA, EOMs intact b/l, nares without drainage, pharynx without erythema, exudate, lesions, or drainage. Uvula midline. Neck: No LAD, no thyromegaly, no meningismus. CV: RRR, no murmur Lungs: CTA b/l, no wheezing Skin: No rashes, lesions, or wounds on exposed skin. ASSESSMENT/PLAN: 1. 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 Also will likely benefit from pelvic floor PHYSICAL THERAPY to help with muscle strengthening of pelvic floor - CONSULT TO PHYSICAL THERAPY 2. Pelvic floor dysfunction in female - ICD9: 618.83, ICD10: M62.89 - f/u with General surgeon as scheduled. Also will likely benefit from pelvic floor PHYSICAL THERAPY to help with muscle strengthening of pelvic floor - CONSULT TO PHYSICAL THERAPY 3. Urinary incontinence, unspecified type - ICD9: 788.30, ICD10: R32 - f/u with General surgeon as scheduled. Also will likely benefit from pelvic floor PHYSICAL THERAPY to help with muscle strengthening of pelvic floor - CONSULT TO PHYSICAL THERAPY Edenilson Nicholson DO Return if no improvement. Follow up with Edenilson Nicholson DO. To ER if develops chest pain, shortness of breat Discussed risks, benefits, alternatives, and potential side effects of medications. Patient/Guardian expressed understanding and agreed with the plan. See patient instructions. Edenilson Nicholson DO [address] [place] [address] documented in this encounter [facility] 12-02-2021 Miscellaneous Notes Reason for call: Protrusion from rectum Anaya reports drinking some cider this evening which has lead to loose frequent stools. With in the last hour and without a stool, Anaya developed a large protrusion from the rectum. With the protrusion Brian noted some pink blood that turned bright red. Brian thought maybe it was a hemorrhoid and tried pushing the bulge back in without success. Anaya denies having a history of hemorrhoids protrude as such. Outcome: ED now recommendation, Anaya verbalized her understanding and will seek evaluation at the [place] ED Reason for Disposition Large mass protruding out of rectum Protocols used: Rectal [id number]-RI documented in this encounter [facility] 11-20-2021 Miscellaneous Notes Patient calls to report redness to top of right foot about the size of a nickel. Nurse triage completed. Protocol recommends homecare. Patient wants area to be seen as soon as possible. Appointment scheduled for Saturday. Reviewed care advice, red flag symptoms to go to ED with, and when to call back. Patient verbalizes understanding. Reason for Disposition Mild localized rash Answer Assessment - Initial Assessment Questions Opened in error. See next protocol Answer Assessment - Initial Assessment Questions 1. APPEARANCE of RASH: Red area about the size of a nickel noted to the top of the right foot. Patient reports a little foot swelling but no indention when push on foot. No warmth to the area. Afebrile. 2. LOCATION: Top of right foot 3. NUMBER: 1 4. SIZE: About the size of a nickel 5. ONSET: Last evening 6. ITCHING: No 7. PAIN: Mild 8. OTHER SYMPTOMS:No fever 9. : NA Protocols used: Leg Swelling and Hceur-RJZAV-JW, Rash or Redness - Psyctryws-FBNOW-MR documented in this encounter [facility] 11-01-2021 Miscellaneous Notes Patient notified and verbalized understanding Madeline Horn Cma The following approved medication requests have been transmitted electronically. Requested Prescriptions Signed Prescriptions Disp Refills famotidine (PEPCID) 40 mg tablet 180 tablet 1 Sig: Take 1 tablet by mouth twice daily. Authorizing Provider: KANDI CONTRERAS APRN.CNP Patient called to refill famotidine; not on current med list. Uses [facility] in [place]. documented in this encounter [facility] 11-01-2021 Miscellaneous Notes Patient notified of results. atient verbalizes understanding. Yi , RN Please let Anaya know that her COVID test and stool tests have all come back negative. Angeline Monterroso APRN.CNP documented in this encounter [facility] 10-30-2021 Miscellaneous Notes Patient notified and verbalized understanding Madeline Horn Cma Please let Anaya know that her test is negative for COVID. Angeline Monterroso APRN.CNP documented in this encounter [facility] 10-29-2021 Miscellaneous Notes Patient calling with return call/Message from office: Patient called back and given message from office note dated 10/28/21. Pt verbalized understanding of message given. . Patient denies any new or worsening symptoms of which a provider is not aware:Yes Please let Anaya know that her test is negative for COVID. MIHIR Hancock LPN documented in this encounter [facility] 10-27-2021 History of Present illness Narrative Chief Complaint Patient presents with: Diarrhea: Since 10/26 Headache HPI Anaya Wilson is a 81 year old female who presents here today for Above Complaints.. Today: For a couple weeks has had some loose stools, with significant urgency. This morning poured out of her. Happens 1-2 times daily. This happened before when she was eating peaches-but hasn't been eating any peaches. Didn't get any worse after antibiotics 3 days ago. No abdominal pain. Very mild-not full blown headache, just mild discomfort. Past medical history, appointments, medications, allergies reviewed. 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 Diverticulosis of colon (without mention of hemorrhage) Dry cough 05/23/2016 Ganglion of joint 07/16/2005 Generalized osteoarthrosis, unspecified site Hemorrhage of gastrointestinal tract, unspecified Hemorrhage of rectum and anus Infection of left eye Irritable bowel syndrome Osteomalacia, unspecified Other and unspecified hyperlipidemia Pneumonia, organism unspecified(486) Psoriatic arthritis (HCC) Rectocele 01/05/2011 Skin tear of lower leg without complication 05/23/2016 Sprain of unspecified site of sacroiliac region Unspecified constipation Urge incontinence mild Previous Surgical History PAST SURGICAL HISTORY Procedure Laterality Date ARTHRP KNE CONDYLE&PLATU MEDIAL&LAT COMPARTMENTS Right 06/03/2017 Knee replacement, total COLONOSCOPY FLX DX W/COLLJ SPEC WHEN PFRMD 04/20/2002 Colonoscopy COLONOSCOPY FLX DX W/COLLJ SPEC WHEN PFRMD 07/25/2011 Colonoscopy NEUROPLASTY &/TRANSPOS MEDIAN NRV CARPAL TUNNE 1979 Carpal tunnel decomp b/l hands NEUROPLASTY &/TRANSPOS MEDIAN NRV CARPAL TUNNE 12/18/2011 RIGHT PAST SURGICAL HISTORY OF Left laser eye surgery for glaucoma SIGMOIDOSCOPY FLX DX W/COLLJ SPEC BR/WA IF PFRMD 06/23/2007 TOTAL ABDOMINAL HYSTERECT W/WO RMVL TUBE OVARY 1988 RUBI/BSO for fibroids and bleeding TOTAL KNEE REPLACEMENT Left 03/28/2020 Family History FAMILY HISTORY Problem Relation Age of Onset Heart Mother CHF Cancer Father prostate Psychiatry Father Cancer Brother No Known Problems Daughter No Known Problems Daughter No Known Problems Daughter Breast Cancer Maternal Aunt Patient Allergies ALLERGIES Allergen Reactions Caffeine Codeine Darvocet A500 [Prop* Vomiting Demerol [Meperidine* Vomiting Entex [Phenylephrin* Ephedrine Other: See Comments Heart palpitations Griseofulvin Milk Containing Pro* Intolerance Nasal stuffiness Tramadol Other: See Comments Nausea, vomiting, dry heaves after carpal tunnel surgery Vicodin [Hydrocodon* Itching Zoloft [Sertraline * Mental Status Change Increased anxiety and feeling of depression. Started in 2005, not noted then Current Medications Current Outpatient Medications on File Prior to Visit Medication Sig loratadine (CLARITIN) 10 mg tablet Take 1 tablet by mouth once daily. meloxicam (MOBIC) 15 mg tablet TAKE 1 TABLET BY MOUTH ONCE DAILY methotrexate 2.5 mg tablet Take 6 tablets once weekly,on lisinopril (ZESTRIL, PRINIVIL) 10 mg tablet Take 1 tablet by mouth once daily. Take an extra 1/2 tablet (5 mg) if BLOOD PRESSURE is 140/90 or greater polyethylene glycol 3350 (MIRALAX ORAL) Take 1 Cap-Full by mouth once daily as needed. predniSONE (DELTASONE) 10 mg tablet Take 20mg (2 tabs)/day x1 week, then 10mg (1 tab)/day x1 week, then stop amitriptyline (ELAVIL) 10 mg tablet Take 1 tablet by mouth daily at bedtime. hydrocortisone (ANUSOL-HC) 25 mg suppository 1 Suppository by RECTAL route twice daily as needed (hemorrhoids/rectal pain). cyclobenzaprine (FLEXERIL) 10 mg tablet Take 1 tablet by mouth twice daily as needed for Muscle Spasm. fluorometholone (FML LIQUID FILM) 0.1 % ophthalmic suspension Use 1 Drop in both eyes once daily. Azelaic Acid (FINACEA) 15 % gel Apply to affected area once daily. multivitamin with minerals (VISION/OPTIGEN) tablet Take 1 tablet by mouth once daily. CALCIUM/MAGNESIUM (CALCIUM AND MAGNESIUM ORAL) Take 3 capsules by mouth twice daily. BIOTIN ORAL Take by mouth once daily. MULTIVITAMIN ORAL Take by mouth once daily. Gummies FOLIC ACID ORAL Take by mouth. Cholecalciferol, Vitamin D3, 5,000 unit tab Take 5,000 Units by mouth once daily. iojhc-4t-kzk-epa-fish oil-D3 350 mg-400 mg- 1,000 unit cap Take by mouth. Takes a total of 5,000 daily Red Yeast Rice Extract 600 mg ORAL Cap Take by mouth. Take one(1) tablet two(2) times daily. Lecithin 400 mg ORAL Cap Take one(1) tablet daily. Glutamine (L-GLUTAMINE) 500 mg ORAL Cap Take one(1) tablet daily. VITAMIN C 500 MG ORAL TAB Take one(1) tablet daily. No current facility-administered medications on file prior to visit. Social History Social History Tobacco Use Smoking status: Never Smokeless tobacco: Never Vaping Use Vaping Use: Never used Substance Use Topics Alcohol use: No Drug use: No Review of Symptoms REVIEW OF SYSTEMS See HPI, otherwise negative EXAM: BP 116/76 (BP Site: Left Arm, BP Position: Sitting, BP Cuff Size: Regular Adult) Pulse 60 Resp 16 Wt 51.5 kg (113 lb 9.6 oz) SpO2 97% BMI 23.34 kg/m General Appearance: Well appearing, alert, in no acute distress, well-hydrated, well nourished.. Lungs: Lungs clear to auscultation. No wheezing, rhonchi, rales.. Heart: RRR without murmur, gallop, or rubs. No ectopy. Abdomen: Normal abdominal exam, Abdomen soft, non-tender. Bowel sounds normal. No masses, organomegaly. Health Maintenance List PNEUMOCOCCAL: 65+(1 - PCV) Never done SHINGRIX VACCINE(1 of 2) due on 11/03/2012 COVID-19 VACCINE(1) due on 04/10/2022 INFLUENZA(1) due on 11/02/2021 DIABETES SCREEN due on 06/07/2024 DTAP,TDAP,TD(3 - Td or Tdap) due on 07/11/2030 BONE DENSITY Completed SPIROMETRY Completed ADVANCE DIRECTIVE DISCUSSION Discontinued Data reviewed Previous records, office notes ASSESSMENT/PLAN: 1. Diarrhea, unspecified type - ICD9: 787.91, ICD10: R19.7 (primary diagnosis) Encouraged hydration. Discussed proper oral intake, hydration. Discussed imodium if necessary. - COVID WITH FLUA+B, ROUTINE - C. DIFFICILE PCR - OVA + PARA MICROSCOPIC - ENTERIC BACTERIAL PANEL BY PCR - OCCULT BLD EXAM-DIAG 2. Mild headache - ICD9: 784.0, ICD10: R51.9 Suspect possible mild dehydration r/t recent diarrhea episodes. - COVID WITH FLUA+B, ROUTINE Angeline Monterroso APRN.SHIP KEEPER documented in this encounter [facility] 10-27-2021 Miscellaneous Notes Noted, thank you. Angeline Monterroso APRN.KEVIN Protocol recommends see provider in 24 hours. Pt scheduled today at 100 pm with Angeline Monterroso BAT PERSON. Care plan reviewed with patient. Patient voices understanding. Advised patient that if symptoms get worse to be evaluated in Urgent Care or ER. Reason for Disposition [1] Recent antibiotic therapy (i.e., within last 2 months) AND [2] diarrhea present > 3 days since antibiotic was stopped Answer Assessment - Initial Assessment Questions 1. DIARRHEA SEVERITY: - NO DIARRHEA (SCALE 0) - MILD (SCALE 1-3): Few loose or mushy BMs; increase of 1-3 stools over normal daily number of stools; mild increase in ostomy output. - MODERATE (SCALE 4-7): Increase of 4-6 stools daily over normal; moderate increase in ostomy output. * SEVERE (SCALE 8-10; OR 'WORST POSSIBLE'): Increase of 7 or more stools daily over normal; moderate increase in ostomy output; incontinence. Pt reports about 3 stools in the last 24 hours, states it just runs out of her. 2. ONSET: Pt reports it began yesterday. 3. BM CONSISTENCY: Pt reports mostly liquid but maybe a few solid specks. 4. VOMITING: Denies 5. ABDOMINAL PAIN: Denies 6. ABDOMINAL PAIN SEVERITY: Denies 7. ORAL INTAKE: Pt denies vomiting, but drank 2 16 oz bottles of water. 8. HYDRATION: Pt denies dry mouth [not just dry lips], too weak to stand, dizziness, new weight loss. Last time Pt urinated was today at 900 am 9. EXPOSURE: Pt denies traveling to a foreign country recently. Pt denies having been exposed to anyone with diarrhea. Pt denies eating any food that was spoiled. 10. ANTIBIOTIC USE: Pt reports taking taking 4 500 mg Amoxicillin on Saturday before dental appointment. 11. OTHER SYMPTOMS: Pt denies fever or blood in stool. 12. : Postmenopausal Protocols used: [id number] documented in this encounter [facility] 10-20-2021 Miscellaneous Notes Last Office Visit: 10/06/2021 Future Office Visit: 01/22/2022 Last Medication Refill: loratadine 11/10/2020 30 tab 11 refill Date of Last Labs: 08/01/2021 documented in this encounter [facility] 10-12-2021 Miscellaneous Notes Patient reports she has appt with dentist coming up to get filling. Patient has been identified by name and date of : Yes Patient phones for refill(s): Requested Prescriptions Pending Prescriptions Disp Refills amoxicillin (POLYMOX, AMOXIL) 500 mg capsule 4 capsule 1 Sig: Take 4 capsules by mouth one time only for 1 dose. Take 1 hour prior to appointment Date of last office visit with pcp: 10-06-21. Next appt: 01-22-22 Last 2 Encounter Wt Readings: Date: Wt: 10/06/2021 52.6 kg (116 lb) 09/19/2021 52.6 kg (116 lb) Previous labs/tests for medication: Blood Pressure: BUN (mg/dL) Date Value 04/19/2021 11 Sodium (mmol/L) Date Value 04/19/2021 138 Last 1 Encounter BP Readings: Date: BP: 10/06/2021 110/60 Liver Function: ALT (U/L) Date Value 05/02/2021 21 04/19/2021 75 AST (U/L) Date Value 05/02/2021 27 04/19/2021 37 Please advise. Thank you. Cristhian Faulkner RN documented in this encounter [facility] 09-18-2021 History of Present illness Narrative Images from the original note were not included. Ortho Knee Follow Up Note Narrative Referring Provider: Michael Del Castillo [address] [facility] [id number] PCP: Edenilson Nicholson, DO IMPRESSION/PLAN: 81 year old s/p Left Total Knee Replacement completed on 03/28/2020 and right total knee completed on 06/03/17. Orthopaedic Surgeries 03/28/2020 (1yr, 5mo) ROBOTIC ASSISTED TOTAL KNEE ARTHROPLASTY; CPTR-ASST DIR MS PX (Left; Left) Ino Purdy MD; Fermín Cartwright MD - Posted 06/03/2017 (4yr) ARTHROPLASTY REPLACE JOINT TOTAL KNEE (Right) Ino Purdy MD; Lani (Margaret) Yvette - Posted PAIN EVALUATION 09/18/2021 1406 Pain Level: 4 Pain Location: bilat knee Description: Tightness;Aching Duration Amount of Time: ongoing Frequency: Intermittent Intervention/Comfort measure: Relaxation;Reposition IMPRESSION: Slow post-operative recovery. PLAN: Continue current conservative treatment. Encouraged to be more consistent with home exercise program Patient Reassurance: Patient reassured and supported. All questions answered. Follow up 3 months No X-Rays Needed Anaya Wilson presents today for a a terminal gauger follow-up visit ACTIVE PROBLEM LIST Rectocele Osteopenia Adjustment Disorder With Anxiety Dyslipidemia Osteoarthritis of Spine With Radiculopathy, Cervical Region Polyarticular Psoriatic Arthritis (Hcc) Psoriasis Dry Cough Postmenopausal Atrophic Vaginitis Irritable Bowel Syndrome Urge Incontinence Status Post Total Knee Replacement Using Cement, Right Status Post Total Right Knee Replacement Adjustment Insomnia Situational Depression Hypertension, Essential Hyperlipidemia, Mixed Left Lower Quadrant Pain Osteoarthritis of Left Knee Urinary Frequency Chronic Rhinitis Chronic Obstructive Pulmonary Disease (Hcc) Chronic Cough Sebaceous Cyst Inflammatory Arthritis Radiculopathy, Cervical Region Neck Pain Acute Pain of Left Knee S/P Tkr (Total Knee Replacement), Left Chronic Pain of Left Knee Pancreatic Cyst Gerd Without Esophagitis Epigastric Abdominal Pain Pes Anserine Bursitis Greater Trochanteric Bursitis of Right Hip Ifg (Impaired Fasting Glucose) Status post op: BMI: There is no height or weight on file to calculate BMI. Post-operative recovery was complicated by uneventful/none. Readmission(s) since surgery (90 days post)? No ED Visits & Hospitalizations - Last 180 days None Patient rates their condition as unchanged. Does the patient still experience pain? Onset: stairs. Location: Bilateral knees and left > right. Frequency: activity limiting. Pain scale: 4. Pain character: ache and tight. Relieving factors: Ice and repositioning. Aggravating factors: Arising from chair and Stairs Post Op discharge patient location: in home. Functional Assessment is as follows: completed course of therapy and continues home program. Functional difficulties: Stair climbing. Pain Medication: None Currently Ambulating with: no ambulation aides Physical Therapy Data 08/09/2020 12/05/2020 12/28/2020 Surgical procedure - - - Surgical procedure date - - - Weight bearing status WBAT - - AROM R knee extension -10 -12 -8 AROM R knee flexion 114 111 115 AROM L knee extension -12 -16 -10 AROM L knee flexion 108 95 102 PROM R knee extension -8 - - PROM R knee flexion 116 - - PROM L knee extension -7 - - Therapist that will oversee plan of care - Valdo Ty - Prognosis - Good - Frequency Discontinue Therapy Services 1x/week Discontinue Therapy Services Duration - 8 weeks - Total number of visits - 8 - Planned treatment interventions - Therapeutic exercise (02464);Neuromuscular re-education (70291);Manual therapy (01985);Therapeutic activities (44233);Self-assisted management (55831);Patient/Family/Caregiver Education;Body Mechanics Training - Plan for next visit - July tyr manual to improve knee rom. progress strengthening. re-eval if pt can recall activities that bother her, - EXAM: POST OP KNEE Bilateral Post-Operative Knee Ambulates with a: normal gait. SKIN: Incision well healed. LEFT KNEE: Range of motion is 10 degrees in extension and 105 degrees of flexion. Extension Lag: < 10 degrees Pain with ROM:No There is None effusion. Mal-alignment: No Tender to the palpation of None Neurovascular Status: Sensation Intact, Moves foot and ankle up & down, Moves toes up and down and 2+ dorsalis pedis Stability:Anterior/Posterior- Yes, stable and Varus/Valgus- Yes, stable Quad strength: normal RIGHT KNEE: Range of motion is 5 degrees in extension and 120 degrees of flexion. Extension Lag: < 10 degrees Pain with ROM:No There is None effusion. Mal-alignment: No Tender to the palpation of None Neurovascular Status: Sensation Intact, Moves foot and ankle up & down, Moves toes up and down and 2+ dorsalis pedis Stability:Anterior/Posterior- Yes, stable and Varus/Valgus- Yes, stable Quad strength: normal Imagin. None today. Provider: Michael Del Castillo PA-C Completed by: Michael Del Castillo PA-C documented in this encounter [facility] 09-12-2021 Instructions Charissa Jauregui APRN.KEVIN - 09/12/2021 11:41 AM EDT 1. Start the augmentin twice daily X 1 week. 2. Hold the methotrexate while on the augmentin. 3. Keep wound clean and dry. Apply antibiotic ointment. 4. Watch the cat. documented in this encounter [facility] 09-12-2021 History of Present illness Narrative This is a 81 year old female who presents today with: Patient presents with: Acute Visit: cat scratch on L hand x 1 day HISTORY OF PRESENT ILLNESS: Anaya Wilson is a 81 year old female. Patient presents with: Acute Visit: cat scratch on L hand x 1 day Pt presents today with an injury to the dorsal aspect of the left hand. Injury happened yesterday. Initially reports that it was a cat scratch, but after discussion, patient reports that she cannot say with certainty that is is not a bite. She is concerned about possible infection. She did use antibiotic ointment to the area. Cat is a barn cat and is not vaccinated. tdap is up to date. 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 Diverticulosis of colon (without mention of hemorrhage) Dry cough 05/23/2016 Ganglion of joint 07/16/2005 Generalized osteoarthrosis, unspecified site Hemorrhage of gastrointestinal tract, unspecified Hemorrhage of rectum and anus Infection of left eye Irritable bowel syndrome Osteomalacia, unspecified Other and unspecified hyperlipidemia Pneumonia, organism unspecified(486) Psoriatic arthritis (HCC) Rectocele 01/05/2011 Skin tear of lower leg without complication 05/23/2016 Sprain of unspecified site of sacroiliac region Unspecified constipation Urge incontinence mild PAST SURGICAL HISTORY Procedure Laterality Date ARTHRP KNE CONDYLE&PLATU MEDIAL&LAT COMPARTMENTS Right 06/03/2017 Knee replacement, total COLONOSCOPY FLX DX W/COLLJ SPEC WHEN PFRMD 04/20/2002 Colonoscopy COLONOSCOPY FLX DX W/COLLJ SPEC WHEN PFRMD 07/25/2011 Colonoscopy NEUROPLASTY &/TRANSPOS MEDIAN NRV CARPAL TUNNE 1979 Carpal tunnel decomp b/l hands NEUROPLASTY &/TRANSPOS MEDIAN NRV CARPAL TUNNE 12/18/2011 RIGHT PAST SURGICAL HISTORY OF Left laser eye surgery for glaucoma SIGMOIDOSCOPY FLX DX W/COLLJ SPEC BR/WA IF PFRMD 06/23/2007 TOTAL ABDOMINAL HYSTERECT W/WO RMVL TUBE OVARY 1988 RUBI/BSO for fibroids and bleeding TOTAL KNEE REPLACEMENT Left 03/28/2020 ALLERGIES Caffeine, Codeine, Darvocet A500 [Propoxyphene N-Acetaminophen], Demerol [Meperidine (Pf)], Entex [Phenylephrine-Guaifenesin], Ephedrine, Griseofulvin, Milk Containing Products, Tramadol, Vicodin [Hydrocodone-Acetaminophen], and Zoloft [Sertraline Hcl] MEDICATIONS Current Outpatient Medications Medication Sig methotrexate 2.5 mg tablet Take 6 tablets once weekly,on lisinopril (ZESTRIL, PRINIVIL) 10 mg tablet Take 1 tablet by mouth once daily. Take an extra 1/2 tablet (5 mg) if BLOOD PRESSURE is 140/90 or greater polyethylene glycol 3350 (MIRALAX ORAL) Take 1 Cap-Full by mouth once daily as needed. predniSONE (DELTASONE) 10 mg tablet Take 20mg (2 tabs)/day x1 week, then 10mg (1 tab)/day x1 week, then stop amitriptyline (ELAVIL) 10 mg tablet Take 1 tablet by mouth daily at bedtime. hydrocortisone (ANUSOL-HC) 25 mg suppository 1 Suppository by RECTAL route twice daily as needed (hemorrhoids/rectal pain). cyclobenzaprine (FLEXERIL) 10 mg tablet Take 1 tablet by mouth twice daily as needed for Muscle Spasm. fluorometholone (FML LIQUID FILM) 0.1 % ophthalmic suspension Use 1 Drop in both eyes once daily. Azelaic Acid (FINACEA) 15 % gel Apply to affected area once daily. multivitamin with minerals (VISION/OPTIGEN) tablet Take 1 tablet by mouth once daily. CALCIUM/MAGNESIUM (CALCIUM AND MAGNESIUM ORAL) Take 3 capsules by mouth twice daily. BIOTIN ORAL Take by mouth once daily. MULTIVITAMIN ORAL Take by mouth once daily. Gummies FOLIC ACID ORAL Take by mouth. Cholecalciferol, Vitamin D3, 5,000 unit tab Take 5,000 Units by mouth once daily. grfim-2b-alv-epa-fish oil-D3 (VITAMIN-D + OMEGA-3) 350 mg- 1,000 unit cap Take by mouth. Takes a total of 5,000 daily Red Yeast Rice Extract 600 mg ORAL Cap Take by mouth. Take one(1) tablet two(2) times daily. Lecithin 400 mg ORAL Cap Take one(1) tablet daily. Glutamine (L-GLUTAMINE) 500 mg ORAL Cap Take one(1) tablet daily. VITAMIN C 500 MG ORAL TAB Take one(1) tablet daily. No current facility-administered medications for this visit. FAMILY HISTORY Problem Relation Age of Onset Heart Mother CHF Cancer Father prostate Psychiatry Father Cancer Brother No Known Problems Daughter No Known Problems Daughter No Known Problems Daughter Breast Cancer Maternal Aunt Social History Tobacco Use Smoking status: Never Smoker Smokeless tobacco: Never Used Vaping Use Vaping Use: Never used Substance Use Topics Alcohol use: No Drug use: No EXAM: BP 128/64 Pulse (!) 51 Resp 18 SpO2 98% PHYSICAL EXAM: General Appearance: Well appearing, alert, in no acute distress, well-hydrated, well nourished.. Skin: dordal aspect of the left hand with some superficial scratches. Small amount of redness/bruising. Head: Normocephalic, no masses, lesions, tenderness or abnormalities. Eyes: Anicteric sclera. Pupils are equally round and reactive to light. Extraocular movements are intact. Extremities: No deformities, edema, skin discoloration, clubbing or cyanosis. Good capillary refill. . Neurologic: Gait normal. ASSESSMENT/PLAN: 1. Injury of left hand, initial encounter - ICD9: 959.4, ICD10: S69.92XA Cat scratch versus cat bite. (Suspect scratch). Will go ahead and treat with augmentin. She will hold the methotrexate while on the augmentin. She will continue to keep the area clean/dry and apply antibiotic ointment. She is up to date on tdap. She is aware to monitor cat. Discussed treatment plan and patient voices understanding. Patient's questions answered appropriately. Medications and potential side effects were discussed and patient voices understanding. Return to the office as scheduled or as needed for worsening/no improvement. Charissa Jauregui APRN.SHIP KEEPER documented in this encounter [facility] 08-03-2021 Miscellaneous Notes Left pt detailed VM (ok per Epic) with results below. Asked patient to contact office if she wanted a boot. Left patient detailed VM with message below. Told ----- Message from Margaret Bacon sent at 08/02/2021 11:39 PM EDT ----- Please call patient to inform her that her xrays show no change from her prior xrays . If she has no pain, I would wear shoes and inserts. If she has pain, I would consider boot Margaret Bacon DPM documented in this encounter [facility] 08-02-2021 History of Present illness Narrative Radiology Service Progress Note PATIENT NAME: Anaya Wilson DATE OF SERVICE: August 02, 2021 TIME: 10:01 AM PATIENT IDENTITY VERIFICATION COMPLETED USING TWO (2) IDENTIFIERS: Name and Date of confirmed by patient verbally. FALL SCREENING: Has the patient had 2 falls in the last year or 1 fall with injury or currently using an Ambulatory Assistive Device (Walker, Cane, Wheelchair, Crutches, etc.)? No PATIENT GENDER DATA: Female. status: : No status: NO. PATIENT RELEVANT IMPLANT DATA REVIEWED: Not Applicable RADIOLOGY DEPARTMENT: General X-ray: Exam(s) Completed: Lower Extremity X-Ray(s): Foot, Left and Wt. Bearing PERIPHERAL IV DATA: Not applicable SIGNED BY: RT Boy(R) August 02, 2021 10:01 AM documented in this encounter [facility] 08-02-2021 History of Present illness Narrative Per Dr. Bacon, Anaya was provided with a pair of full length gel Comfort Last Power step inserts, size 7 - 8 1/2, and instructed/educated in its application, wear, and care. All questions were answered, and patient was able to demonstrate competence with the necessary skills to utilize the above equipment. Keisha Cazares RN Consultation requested by Dr. davis for an opinion regarding pain and redness of left foot. My final recommendations will be communicated back to the requesting physician by way of shared Medical record or letter to requesting physician via US mail. Initial Podiatric Office Visit: Chief Complaint: This 81 year old female who presents with chief complaint:pain and redness of left foot HPI Patient presents to clinic for evaluation of left foot. Patient states that last week, she noticed pain and redness of left foot. She saw Angeline monterroso who referred patient here . Patient states the redness and swelling has improved but she still has slight pain. PAIN EVALUATION 08/02/2021 0920 Pain Level: 1 Pain Location: Foot-Left Description: Other: See comment Duration Amount of Time: 1 Duration Units: Weeks Frequency: Intermittent Comments: States when she has pain it is present but unable to describe the feel. 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 Diverticulosis of colon (without mention of hemorrhage) Dry cough 05/23/2016 Ganglion of joint 07/16/2005 Generalized osteoarthrosis, unspecified site Hemorrhage of gastrointestinal tract, unspecified Hemorrhage of rectum and anus Infection of left eye Irritable bowel syndrome Osteomalacia, unspecified Other and unspecified hyperlipidemia Pneumonia, organism unspecified(486) Psoriatic arthritis (HCC) Rectocele 01/05/2011 Skin tear of lower leg without complication 05/23/2016 Sprain of unspecified site of sacroiliac region Unspecified constipation Urge incontinence mild Current Outpatient Medications Medication Sig methotrexate 2.5 mg tablet Take 6 tablets once weekly,on lisinopril (ZESTRIL, PRINIVIL) 10 mg tablet Take 1 tablet by mouth once daily. Take an extra 1/2 tablet (5 mg) if BLOOD PRESSURE is 140/90 or greater polyethylene glycol 3350 (MIRALAX ORAL) Take 1 Cap-Full by mouth once daily as needed. amitriptyline (ELAVIL) 10 mg tablet Take 1 tablet by mouth daily at bedtime. hydrocortisone (ANUSOL-HC) 25 mg suppository 1 Suppository by RECTAL route twice daily as needed (hemorrhoids/rectal pain). cyclobenzaprine (FLEXERIL) 10 mg tablet Take 1 tablet by mouth twice daily as needed for Muscle Spasm. fluorometholone (FML LIQUID FILM) 0.1 % ophthalmic suspension Use 1 Drop in both eyes once daily. Azelaic Acid (FINACEA) 15 % gel Apply to affected area once daily. BIOTIN ORAL Take by mouth once daily. MULTIVITAMIN ORAL Take by mouth once daily. Gummies FOLIC ACID ORAL Take by mouth. Cholecalciferol, Vitamin D3, 5,000 unit tab Take 5,000 Units by mouth once daily. upofj-6m-tuk-epa-fish oil-D3 (VITAMIN-D + OMEGA-3) 350 mg- 1,000 unit cap Take by mouth. Takes a total of 5,000 daily Red Yeast Rice Extract 600 mg ORAL Cap Take by mouth. Take one(1) tablet two(2) times daily. Glutamine (L-GLUTAMINE) 500 mg ORAL Cap Take one(1) tablet daily. VITAMIN C 500 MG ORAL TAB Take one(1) tablet daily. predniSONE (DELTASONE) 10 mg tablet Take 20mg (2 tabs)/day x1 week, then 10mg (1 tab)/day x1 week, then stop (Patient not taking: Reported on 07/17/2021 ) multivitamin with minerals (VISION/OPTIGEN) tablet Take 1 tablet by mouth once daily. (Patient not taking: Reported on 08/02/2021 ) CALCIUM/MAGNESIUM (CALCIUM AND MAGNESIUM ORAL) Take 3 capsules by mouth twice daily. (Patient not taking: Reported on 08/02/2021 ) Lecithin 400 mg ORAL Cap Take one(1) tablet daily. (Patient not taking: ) No current facility-administered medications for this visit. ALLERGIES Allergen Reactions Caffeine Codeine Darvocet A500 [Prop* Vomiting Demerol [Meperidine* Vomiting Entex [Phenylephrin* Ephedrine Other: See Comments Heart palpitations Griseofulvin Milk Containing Pro* Intolerance Nasal stuffiness Tramadol Other: See Comments Nausea, vomiting, dry heaves after carpal tunnel surgery Vicodin [Hydrocodon* Itching Zoloft [Sertraline * Mental Status Change Increased anxiety and feeling of depression. Started in 2005, not noted then PAST SURGICAL HISTORY Procedure Laterality Date ARTHRP KNE CONDYLE&PLATU MEDIAL&LAT COMPARTMENTS Right 06/03/2017 Knee replacement, total COLONOSCOPY FLX DX W/COLLJ SPEC WHEN PFRMD 04/20/2002 Colonoscopy COLONOSCOPY FLX DX W/COLLJ SPEC WHEN PFRMD 07/25/2011 Colonoscopy NEUROPLASTY &/TRANSPOS MEDIAN NRV CARPAL TUNNE 1979 Carpal tunnel decomp b/l hands NEUROPLASTY &/TRANSPOS MEDIAN NRV CARPAL TUNNE 12/18/2011 RIGHT PAST SURGICAL HISTORY OF Left laser eye surgery for glaucoma SIGMOIDOSCOPY FLX DX W/COLLJ SPEC BR/WA IF PFRMD 06/23/2007 TOTAL ABDOMINAL HYSTERECT W/WO RMVL TUBE OVARY 1988 RUBI/BSO for fibroids and bleeding TOTAL KNEE REPLACEMENT Left 03/28/2020 FAMILY HISTORY Problem Relation Age of Onset Heart Mother CHF Cancer Father prostate Psychiatry Father Cancer Brother No Known Problems Daughter No Known Problems Daughter No Known Problems Daughter Breast Cancer Maternal Aunt Social History Tobacco Use Smoking status: Never Smoker Smokeless tobacco: Never Used Vaping Use Vaping Use: Never used Substance Use Topics Alcohol use: No Drug use: No REVIEW OF SYSTEMS GENERAL: Negative for Malaise, significant weight loss, fever RESPIRATORY: Negative for cough, wheezing and shortness of breath CARDIOVASCULAR: Negative for chest pain, leg swelling and palpitations GI: Negative for abdominal discomfort, blood in stools or black stools and change in bowel habits : Negative for dysuria, frequency and incontinence MUSCULOSKELETAL: Negative for joint pain or swelling, back pain, and muscle pain. SKIN: Negative for lesions, rash, and itching. HEMATOLOGY/LYMPHOLOGY Negative for prolonged bleeding, bruising easily, and swollen nodes. ENDOCRINE: Negative for cold or heat intolerance, polyuria, polydipsia and goiter. NEURO: negative Physical Exam: Constitutional: Pt is a well developed 81 year old female who is alert, oriented and cooperative Eyes: Following during examination. No redness or drainage. Respiratory: RR normal and nonlabored. Even breathing. No evidence of distress or shortness of breath. Psychology: Patient is engaged during conversation. Normal affect and mood. Does not appear depressed or anxious during encounter. Vascular: Dorsalis pedis and posterior tibial pulses palpable left Capillary Fill time < 5 seconds to digits 1-5 left Skin temperature warm to warm proximal to distal left Hair growth present to digits Neurological: intact light touch/epicritic sensation left intact protective sensation no significant neurological deficits Dermatological: Nails 1-5 left appear normal. Webspaces clean and dry 1-4 left. Skin appears well hydrated and supple. good color, texture, turgor. No open lesions present. No callosities present. Musculoskeletal/Orthopaedic: Patient has no pain to palpation of left 2nd metatarsal Foot type is neutral structurally AJ ROM is decreased with knee extended and flexed 1st MPJ is decreased when loaded and no pain or crepitus are noted with ROM. Mild bunion and hammertoes present to left foot MTJ, STJ are full and free of pain and crepitus. +5/5 muscle strength dorsiflexion, plantarflexion, inversion, eversion b/l Radiographs: 3 views left foot reviewed August 02, 2021: I have personally reviewed and interpreted these XR myself: No acute fracture. There is thickening and periosteal reaction of left 2nd metatarsal shaft seen on ap view of july 20 xray ASSESSMENT: (X50.3XXA) Repetitive stress injury (primary encounter diagnosis) (M79.672) Foot pain, left (L53.9) Erythema of foot PLAN: 1. History and physical examination performed. 2. XR reviewed with patient and interpreted today 3. There is periosteal thickening of left 2nd metatarsal. Cannot exclude stress fracture. Recommend follow-up xrays to confirm possible stress fracture 4. Patient has no pain currently . Recommend firm sole sneaker and will use powerstep insert 5. Will repeat xrays Margaret Bacon DPM Podiatry [address] [facility] [address] Dept: [phone] Dept documented in this encounter [facility] 08-02-2021 Instructions Margaret Bacon - 08/02/2021 9:42 AM EDT Powerstep Original Full length. Can purchase at [employer] here in [place], [employer] in [place] or [place]. Also can find in [place] in [facility]. Powersteps can also be purchased online, starting around $25.00 If you have a metatarsal or dancer pad for your feet apply the pad directly to the insole so you can interchange between your shoes. Find a shoe with a removable insole and take this out and replace with your powerstep insole. Always bring powersteps with you when shopping for shoes so that you can make sure that everything fits well together documented in this encounter [facility] 07-21-2021 Miscellaneous Notes Done. Thank you, Sharon Garibay Podiatry consults signed. Please assist in scheduling. Thank you, Kandi Contreras APRN.CNP Patient calls back and notified of provider response. Patient states that she is willing to see podiatry. Please place order. Please review and advise, Yi Jones RN Patients spouse notified, verbalized understanding and will relay message to pt. Patient will call office if interested in Podiatry. Ivette Lopez Ma Please let Anaya know that her xray does not show any fractures. However, I think she may benefit from seeing a lawn care worker to help with the area that is sore and try to prevent it from rubbing and hurting. Please let me know if she is agreeable to this consult. Angeline Monterroso APRN.CNP documented in this encounter [facility] 07-20-2021 Instructions Angeline Monterroso APRN.CNP - 07/20/2021 12:31 PM EDT Have your foot xray completed. You can use the valacyclovir medication when you feel a cold sore coming on. Start taking your Claritin daily. This should help with your throat and your ear. Try to limit carbohydrates somewhat. documented in this encounter [facility] 07-20-2021 History of Present illness Narrative Chief Complaint Patient presents with: Ear Problem: left ear Foot Pain (Midfoot): top of left foot Mouth/Lip Problem Throat Problem Urinary Frequency HPI Anaya Wilson is a 81 year old female who presents here today for Above Complaints.. Today: Feels like her left ear is plugged/tight. Comes and goes. Wonders if r/t her psoriatic arthritis. Occasionally doesn't happen in a day, but typically does. Difficult explaining. Hands periodically swell. Right worse than left. This is common r/t her psoriatic arthritis. Left foot pain-top of her foot. No injury. Hurting for a few weeks. Has been intermittently swelling. Urinary frequency-not sure if this is worse than normal. Mouth-keeps getting sores on and around her lips. Currently has one. Does blister up at first. Bumps on scalp. Have been there a while. Are not painful. Past medical history, appointments, medications, allergies reviewed. 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 Diverticulosis of colon (without mention of hemorrhage) Dry cough 05/23/2016 Ganglion of joint 07/16/2005 Generalized osteoarthrosis, unspecified site Hemorrhage of gastrointestinal tract, unspecified Hemorrhage of rectum and anus Infection of left eye Irritable bowel syndrome Osteomalacia, unspecified Other and unspecified hyperlipidemia Pneumonia, organism unspecified(486) Psoriatic arthritis (HCC) Rectocele 01/05/2011 Skin tear of lower leg without complication 05/23/2016 Sprain of unspecified site of sacroiliac region Unspecified constipation Urge incontinence mild Previous Surgical History PAST SURGICAL HISTORY Procedure Laterality Date ARTHRP KNE CONDYLE&PLATU MEDIAL&LAT COMPARTMENTS Right 06/03/2017 Knee replacement, total COLONOSCOPY FLX DX W/COLLJ SPEC WHEN PFRMD 04/20/2002 Colonoscopy COLONOSCOPY FLX DX W/COLLJ SPEC WHEN PFRMD 07/25/2011 Colonoscopy NEUROPLASTY &/TRANSPOS MEDIAN NRV CARPAL TUNNE 1979 Carpal tunnel decomp b/l hands NEUROPLASTY &/TRANSPOS MEDIAN NRV CARPAL TUNNE 12/18/2011 RIGHT PAST SURGICAL HISTORY OF Left laser eye surgery for glaucoma SIGMOIDOSCOPY FLX DX W/COLLJ SPEC BR/WA IF PFRMD 06/23/2007 TOTAL ABDOMINAL HYSTERECT W/WO RMVL TUBE OVARY 1988 RUBI/BSO for fibroids and bleeding TOTAL KNEE REPLACEMENT Left 03/28/2020 Family History FAMILY HISTORY Problem Relation Age of Onset Heart Mother CHF Cancer Father prostate Psychiatry Father Cancer Brother No Known Problems Daughter No Known Problems Daughter No Known Problems Daughter Breast Cancer Maternal Aunt Patient Allergies ALLERGIES Allergen Reactions Caffeine Codeine Darvocet A500 [Prop* Vomiting Demerol [Meperidine* Vomiting Entex [Phenylephrin* Ephedrine Other: See Comments Heart palpitations Griseofulvin Milk Containing Pro* Intolerance Nasal stuffiness Tramadol Other: See Comments Nausea, vomiting, dry heaves after carpal tunnel surgery Vicodin [Hydrocodon* Itching Zoloft [Sertraline * Mental Status Change Increased anxiety and feeling of depression. Started in 2005, not noted then Current Medications Current Outpatient Medications on File Prior to Visit Medication Sig methotrexate 2.5 mg tablet Take 6 tablets once weekly,on lisinopril (ZESTRIL, PRINIVIL) 10 mg tablet Take 1 tablet by mouth once daily. Take an extra 1/2 tablet (5 mg) if BLOOD PRESSURE is 140/90 or greater polyethylene glycol 3350 (MIRALAX ORAL) Take 1 Cap-Full by mouth once daily. amitriptyline (ELAVIL) 10 mg tablet Take 1 tablet by mouth daily at bedtime. hydrocortisone (ANUSOL-HC) 25 mg suppository 1 Suppository by RECTAL route twice daily as needed (hemorrhoids/rectal pain). cyclobenzaprine (FLEXERIL) 10 mg tablet Take 1 tablet by mouth twice daily as needed for Muscle Spasm. fluorometholone (FML LIQUID FILM) 0.1 % ophthalmic suspension Use 1 Drop in both eyes once daily. Azelaic Acid (FINACEA) 15 % gel Apply to affected area once daily. multivitamin with minerals (VISION/OPTIGEN) tablet Take 1 tablet by mouth once daily. CALCIUM/MAGNESIUM (CALCIUM AND MAGNESIUM ORAL) Take 3 capsules by mouth twice daily. BIOTIN ORAL Take by mouth once daily. MULTIVITAMIN ORAL Take by mouth once daily. Gummies FOLIC ACID ORAL Take by mouth. Cholecalciferol, Vitamin D3, 5,000 unit tab Take 5,000 Units by mouth once daily. dftwj-1p-dtn-epa-fish oil-D3 (VITAMIN-D + OMEGA-3) 350 mg- 1,000 unit cap Take by mouth. Takes a total of 5,000 daily Red Yeast Rice Extract 600 mg ORAL Cap Take by mouth. Take one(1) tablet two(2) times daily. Lecithin 400 mg ORAL Cap Take one(1) tablet daily. Glutamine (L-GLUTAMINE) 500 mg ORAL Cap Take one(1) tablet daily. VITAMIN C 500 MG ORAL TAB Take one(1) tablet daily. predniSONE (DELTASONE) 10 mg tablet Take 20mg (2 tabs)/day x1 week, then 10mg (1 tab)/day x1 week, then stop (Patient not taking: Reported on 07/17/2021 ) No current facility-administered medications on file prior to visit. Social History Social History Tobacco Use Smoking status: Never Smoker Smokeless tobacco: Never Used Vaping Use Vaping Use: Never used Substance Use Topics Alcohol use: No Drug use: No Review of Symptoms REVIEW OF SYSTEMS See HPI, otherwise negative EXAM: BP 108/68 (BP Site: Left Arm, BP Position: Sitting, BP Cuff Size: Regular Adult) Pulse (!) 59 Wt 51.7 kg (114 lb) SpO2 97% BMI 23.42 kg/m General Appearance: Well appearing, alert, in no acute distress, well-hydrated, well nourished.. Skin: Skin color, texture, turgor normal, no suspicious rashes or lesions. Head: Normocephalic, no masses, lesions, tenderness or abnormalities. Ears: External ears normal, canals clear. Nose/Sinuses: Nares normal, septum midline, mucosa normal, no drainage or sinus tenderness. Oropharynx: PND Neck: Supple, no adenopathy; thyroid symmetric, normal size, no bruits. Lungs: Lungs clear to auscultation. No wheezing, rhonchi, rales.. Heart: RRR without murmur, gallop, or rubs. No ectopy. Abdomen: Normal abdominal exam, Abdomen soft, non-tender. Bowel sounds normal. No masses, organomegaly. Extremities: No deformities, edema, skin discoloration, clubbing or cyanosis. Good capillary refill. . Peripheral Pulses: Normal. Lymph Nodes: No cervical lymphadenopathy and No supraclavicular lymphadenopathy. Health Maintenance List SHINGRIX VACCINE(2 of 3) due on 11/03/2012 COVID-19 VACCINE(1) due on 04/10/2022 INFLUENZA(Season Ended) due on 11/02/2021 DIABETES SCREEN due on 06/07/2024 DTAP,TDAP,TD(3 - Td or Tdap) due on 07/11/2030 BONE DENSITY Completed SPIROMETRY Completed PNEUMOVAX AGE 65 AND OVER WITH 5YR LOOKBACK Addressed MENINGOCOCCAL CONJUGATE Aged Out ADVANCE DIRECTIVE DISCUSSION Discontinued Data reviewed Previous records, office notes ASSESSMENT/PLAN: 1. Foot pain, left - ICD9: 729.5, ICD10: M79.672 (primary diagnosis) R/o fracture, other deformity Mildly red to painful area, recommend padding in this area. Raised area appears to be tender r/t rubbing on shoes. - XR FOOT GENERAL 3V AP/LAT/OBL LEFT 2. Erythema of foot - ICD9: 695.9, ICD10: L53.9 R/o fracture, other deformity Mildly red to painful area, recommend padding in this area. Raised area appears to be tender r/t rubbing on shoes. - XR FOOT GENERAL 3V AP/LAT/OBL LEFT 3. Urinary frequency - ICD9: 788.41, ICD10: R35.0 recurrent - Patient education for prevention given UA negative - UA DIP, URINE (POC) 4. Sensation of fullness in left ear - ICD9: 388.8, ICD10: H93.8X2 Assessment WNL. Suggest Claritin/Zyrtec daily, Flonase. 5. Psoriatic arthritis (HCC) - ICD9: 696.0, ICD10: L40.50 Continue current treatments. 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 Valacyclovir prn. - VALACYCLOVIR 1 GRAM TABLET 7. Seasonal allergies - ICD9: 477.9, ICD10: J30.2 Suggest Claritin/Zyrtec daily, Flonase. 8. Scalp lump - ICD9: 784.2, ICD10: R22.0 Benign. Angeline Monterroso APRN.SHIP KEEPER Greater than 50% of 46-minute visit spent face to face with patient in counseling and education. documented in this encounter [facility] 07-19-2021 Miscellaneous Notes Patient has been identified by name and date of : Yes Pending Prescriptions Disp Refills METHOTREXATE SODIUM 2.5 MG TABLET 56 tablet 0 Sig: Take 6 tablets once weekly,on ANTON: No RX INSTRUCTIONS: Patient aware RX will be sent to pharmacy. No need to notify patient. Sharon Pack Pss documented in this encounter [facility] 07-17-2021 History of Present illness Narrative Images from the original note were not included. Ortho Knee Follow Up Note Narrative Referring Provider: Michael Del Castillo [address] [facility] [address] PCP: Edenilson Nicholson, DO IMPRESSION/PLAN: 81 year old s/p Bilateral Total Knee Replacements, left completed on 03/28/2020 and the right completed on 06/03/17. Orthopaedic Surgeries 03/28/2020 (1yr, 3mo) ROBOTIC ASSISTED TOTAL KNEE ARTHROPLASTY; CPTR-ASST DIR MS PX (Left; Left) Ino Purdy MD; Fermín Cartwright MD - Posted 06/03/2017 (4yr) ARTHROPLASTY REPLACE JOINT TOTAL KNEE (Right) Ino Purdy MD; Lani (Margaret) Yvette - Posted PAIN EVALUATION 07/17/2021 1254 Pain Level: 6 Pain Location: Bilateral Knee, Left worse Description: Aching;Sore Duration Amount of Time: ongoing Frequency: Intermittent Intervention/Comfort measure: Reposition;Relaxation IMPRESSION: Bilateral total knees with quad weakness PLAN: Continue current conservative treatment. Home therapy program reviewed with Anaya and her Patient Reassurance: Patient reassured and supported. All questions answered. Follow up 1 year X-Rays Needed Anaya Wilson presents today for a a skilled nursing follow-up visit. She also complains that ADLs are becoming for difficult. She is still active and typically walks 1 mile a day. She has no pain complaints. ACTIVE PROBLEM LIST Rectocele Osteopenia Adjustment Disorder With Anxiety Dyslipidemia Osteoarthritis of Spine With Radiculopathy, Cervical Region Polyarticular Psoriatic Arthritis (Hcc) Psoriasis Dry Cough Postmenopausal Atrophic Vaginitis Irritable Bowel Syndrome Urge Incontinence Status Post Total Knee Replacement Using Cement, Right Status Post Total Right Knee Replacement Adjustment Insomnia Situational Depression Hypertension, Essential Hyperlipidemia, Mixed Left Lower Quadrant Pain Osteoarthritis of Left Knee Urinary Frequency Chronic Rhinitis Chronic Obstructive Pulmonary Disease (Hcc) Chronic Cough Sebaceous Cyst Inflammatory Arthritis Radiculopathy, Cervical Region Neck Pain Acute Pain of Left Knee S/P Tkr (Total Knee Replacement), Left Chronic Pain of Left Knee Pancreatic Cyst Gerd Without Esophagitis Epigastric Abdominal Pain Pes Anserine Bursitis Greater Trochanteric Bursitis of Right Hip Ifg (Impaired Fasting Glucose) Status post op: BMI: There is no height or weight on file to calculate BMI. Post-operative recovery was complicated by uneventful/none. Readmission(s) since surgery (90 days post)? No ED Visits & Hospitalizations - Last 180 days None Patient rates their condition as worsening. Does the patient still experience pain? No Post Op discharge patient location: in home. Functional Assessment is as follows: completed course of therapy. Functional difficulties: Stair climbing. Pain Medication: None Currently Ambulating with: no ambulation aides Physical Therapy Data 08/09/2020 12/05/2020 12/28/2020 Surgical procedure - - - Surgical procedure date - - - Weight bearing status WBAT - - AROM R knee extension -10 -12 -8 AROM R knee flexion 114 111 115 AROM L knee extension -12 -16 -10 AROM L knee flexion 108 95 102 PROM R knee extension -8 - - PROM R knee flexion 116 - - PROM L knee extension -7 - - Therapist that will oversee plan of care - Valdo Ty - Prognosis - Good - Frequency Discontinue Therapy Services 1x/week Discontinue Therapy Services Duration - 8 weeks - Total number of visits - 8 - Planned treatment interventions - Therapeutic exercise (47766);Neuromuscular re-education (61680);Manual therapy (50739);Therapeutic activities (16969);Self-assisted management (66820);Patient/Family/Caregiver Education;Body Mechanics Training - Plan for next visit - July tyr manual to improve knee rom. progress strengthening. re-eval if pt can recall activities that bother her, - EXAM: POST OP KNEE Bilateral Post-Operative Knee Ambulates with a: normal gait with slight limp at start up. SKIN: Incision intact. LEFT KNEE: Range of motion is 10 degrees in extension and 100 degrees of flexion. Extension Lag: < 10 degrees Pain with ROM:No There is Slight effusion. Mal-alignment: No Tender to the palpation of Pes anserine bursa Neurovascular Status: Sensation Intact, Moves foot and ankle up & down, Moves toes up and down and 2+ dorsalis pedis Stability:Anterior/Posterior- Yes, stable and Varus/Valgus- Yes, stable Quad strength: weak RIGHT KNEE: Range of motion is 5 degrees in extension and 110 degrees of flexion. Extension Lag: < 10 degrees Pain with ROM:No There is None effusion. Mal-alignment: No Tender to the palpation of None Neurovascular Status: Sensation Intact, Moves foot and ankle up & down, Moves toes up and down and 2+ dorsalis pedis Stability:Anterior/Posterior- Yes, stable and Varus/Valgus- Yes, stable Quad strength: weak Imagin. Implants are well aligned. Implants are well fixed. There is no evidence of loosening. Patella is well positioned. Provider: Michael Del Castillo PA-C Completed by: Michael Del Castillo PA-C documented in this encounter [facility] 07-17-2021 History of Present illness Narrative Radiology Service Progress Note PATIENT NAME: Anaya Wilson DATE OF SERVICE: July 17, 2021 TIME: 12:48 PM PATIENT IDENTITY VERIFICATION COMPLETED USING TWO (2) IDENTIFIERS: Name and Date of confirmed by patient verbally. FALL SCREENING: Has the patient had 2 falls in the last year or 1 fall with injury or currently using an Ambulatory Assistive Device (Walker, Cane, Wheelchair, Crutches, etc.)? No PATIENT GENDER DATA: Female. status: : No status: NO. PATIENT RELEVANT IMPLANT DATA REVIEWED: Not Applicable RADIOLOGY DEPARTMENT: General X-ray: Exam(s) Completed: Lower Extremity X-Ray(s): Knee, AP / Lat / Merchant Bilateral and Wt. Bearing PERIPHERAL IV DATA: Not applicable SIGNED BY: ERIC Marroquin July 17, 2021 12:48 PM documented in this encounter [facility] 06-29-2021 Miscellaneous Notes Pt was notified of such. Thank you for clarifying. Rx sent. The following approved medication requests have been transmitted electronically. Signed Prescriptions Disp Refills amoxicillin (POLYMOX, AMOXIL) 500 mg capsule 4 capsule 1 Sig: Take 4 capsules by mouth one time only for 1 dose. Take 1 hour prior to appointment ANTON: No Authorizing Provider: KANDI CONTRERAS APRN.CNP Spoke with pt she states just to keep on hand for prior to going to dentist. She has two replaced knees she states she usually only gets 4 of them for before dental treatments. Please clarify why patient is asking for a refill of this antibiotic? Antibiotics are not a medication that should be refilled, patient should not be on this more than a short-term duration. Kandi Contreras APRN.CNP Patient has been identified by name and date of : Yes Patient phones for refill(s): Pending Prescriptions Disp Refills AMOXICILLIN 500 MG CAPSULE 4 capsule 1 Sig: Take 4 capsules by mouth one time only for 1 dose. Take 1 hour prior to appointment ANTON: No Date of last office visit with pcp: 06/28/21 Date of last office visit in primary care: Last 2 Encounter Wt Readings: Date: Wt: 06/27/2021 51.7 kg (114 lb) 06/09/2021 52.2 kg (115 lb) Previous labs/tests for medication: Not applicable Please advise. Thank you. Elizabeth Perez RN documented in this encounter [facility] 06-28-2021 History of Present illness Narrative CC: Anaya Wilson is a 81 year old female who presents to the office for follow up HPI: Seen in office on 05/24/21, at that time Overall has been feeling well. Just recently is trying to restart walking routine as the weather gets nice. She walked up and down their lucho 4-5 times last evening. Asymptomatic, no CP or dyspnea or dizziness/LH or edema Arthritis inflammatory, taking methotrexate, seeing Social Media Content Specialist Chronic neck pain, muscle tension. Starting PHYSICAL THERAPY at [facility], 1st session was this week. She had BLOOD PRESSURE taken there this am and thinks it was 170s systolic. BLOOD PRESSURE rechecked twice here and consistent around 120/60s Hasn't been routinely monitoring BLOOD PRESSURE at home. Taking her lisinopril 10 mg in the evening., no other new medications She was seen in UC setting on 06/07/[address] Stinson as below Left rib/back pain: Duration: Her elastic band for stretching came off the door yesterday. She twisted and fell onto her right side. Location: Left posterior lower ribs Character: sharp Radiation: No. Aggravating: bending and twisting Relieving: Ice Pain relievers: None Associated: Osteoporosis Pertinent negatives: Denies cough, shortness of breath, hematuria She was treated for a rib strain and told to use mobic as needed. Currently She feels overall that her rib discomfort symptoms are improving, she is trying to regularly perform her stretches at home and try to stay active. No recent new injuries or falls. Chronic neck pain, Cervical DDD and DJD, she has been doing PHYSICAL THERAPY at [facility] for this and feels it is helping her mobility and symptoms. She admits that she needs to do the stretches more regularly at home as well. 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 Diverticulosis of colon (without mention of hemorrhage) Dry cough 05/23/2016 Ganglion of joint 07/16/2005 Generalized osteoarthrosis, unspecified site Hemorrhage of gastrointestinal tract, unspecified Hemorrhage of rectum and anus Infection of left eye Irritable bowel syndrome Osteomalacia, unspecified Other and unspecified hyperlipidemia Pneumonia, organism unspecified(486) Psoriatic arthritis (HCC) Rectocele 01/05/2011 Skin tear of lower leg without complication 05/23/2016 Sprain of unspecified site of sacroiliac region Unspecified constipation Urge incontinence mild PAST SURGICAL HISTORY Procedure Laterality Date ARTHRP KNE CONDYLE&PLATU MEDIAL&LAT COMPARTMENTS Right 06/03/2017 Knee replacement, total COLONOSCOPY FLX DX W/COLLJ SPEC WHEN PFRMD 04/20/2002 Colonoscopy COLONOSCOPY FLX DX W/COLLJ SPEC WHEN PFRMD 07/25/2011 Colonoscopy NEUROPLASTY &/TRANSPOS MEDIAN NRV CARPAL TUNNE 1980 Carpal tunnel decomp b/l hands NEUROPLASTY &/TRANSPOS MEDIAN NRV CARPAL TUNNE 12/18/2011 RIGHT PAST SURGICAL HISTORY OF Left laser eye surgery for glaucoma SIGMOIDOSCOPY FLX DX W/COLLJ SPEC BR/WA IF PFRMD 06/23/2007 TOTAL ABDOMINAL HYSTERECT W/WO RMVL TUBE OVARY 1988 RUBI/BSO for fibroids and bleeding TOTAL KNEE REPLACEMENT Left 03/28/2020 Current Outpatient Medications Medication Sig lisinopril (ZESTRIL, PRINIVIL) 10 mg tablet Take 1 tablet by mouth once daily. Take an extra 1/2 tablet (5 mg) if BLOOD PRESSURE is 140/90 or greater polyethylene glycol 3350 (MIRALAX ORAL) Take 1 Cap-Full by mouth once daily. predniSONE (DELTASONE) 10 mg tablet Take 20mg (2 tabs)/day x1 week, then 10mg (1 tab)/day x1 week, then stop methotrexate 2.5 mg tablet Take 6 tablets once weekly,on amitriptyline (ELAVIL) 10 mg tablet Take 1 tablet by mouth daily at bedtime. hydrocortisone (ANUSOL-HC) 25 mg suppository 1 Suppository by RECTAL route twice daily as needed (hemorrhoids/rectal pain). cyclobenzaprine (FLEXERIL) 10 mg tablet Take 1 tablet by mouth twice daily as needed for Muscle Spasm. fluorometholone (FML LIQUID FILM) 0.1 % ophthalmic suspension Use 1 Drop in both eyes once daily. Azelaic Acid (FINACEA) 15 % gel Apply to affected area once daily. multivitamin with minerals (VISION/OPTIGEN) tablet Take 1 tablet by mouth once daily. CALCIUM/MAGNESIUM (CALCIUM AND MAGNESIUM ORAL) Take 3 capsules by mouth twice daily. BIOTIN ORAL Take by mouth once daily. MULTIVITAMIN ORAL Take by mouth once daily. Gummies FOLIC ACID ORAL Take by mouth. Cholecalciferol, Vitamin D3, 5,000 unit tab Take 5,000 Units by mouth once daily. [id number]-epa-fish oil-D3 (VITAMIN-D + OMEGA-3) 350 mg- 1,000 unit cap Take by mouth. Takes a total of 5,000 daily Red Yeast Rice Extract 600 mg ORAL Cap Take by mouth. Take one(1) tablet two(2) times daily. Lecithin 400 mg ORAL Cap Take one(1) tablet daily. Glutamine (L-GLUTAMINE) 500 mg ORAL Cap Take one(1) tablet daily. VITAMIN C 500 MG ORAL TAB Take one(1) tablet daily. No current facility-administered medications for this visit. ALLERGIES Allergen Reactions Caffeine Codeine Darvocet A500 [Prop* Vomiting Demerol [Meperidine* Vomiting Entex [Phenylephrin* Ephedrine Other: See Comments Heart palpitations Griseofulvin Milk Containing Pro* Intolerance Nasal stuffiness Tramadol Other: See Comments Nausea, vomiting, dry heaves after carpal tunnel surgery Vicodin [Hydrocodon* Itching Zoloft [Sertraline * Mental Status Change Increased anxiety and feeling of depression. Started in 2005, not noted then Social History Tobacco Use Smoking status: Never Smoker Smokeless tobacco: Never Used Vaping Use Vaping Use: Never used Substance Use Topics Alcohol use: No Drug use: No ROS: See HPI PE: BP 116/70 Pulse 51 Resp 14 Wt 114 lb (51.7kg) SpO2 99% Gen: A&OX3, NAD, non-toxic appearing HEENT: PERRLA, EOMs intact b/l, nares without drainage, pharynx without erythema, exudate, lesions, or drainage. Uvula midline. Neck: No LAD, no thyromegaly, no meningismus. CV: RRR, no murmur Lungs: CTA b/l, no wheezing Skin: No rashes, lesions, or wounds on exposed skin. No edema, normal pulses Arthritis changes to hands and feet, B/l knee vertical healed incisions without erythema Minimal rib discomfort posterior and inferior on left >right side, no signs of deformity or bruising present ASSESSMENT/PLAN: 1. Neck pain - ICD9: 723.1, ICD10: M54.2 (primary diagnosis) - overall symptoms are improving/stable, continue with home exercises, use of TENS unit, stretches, heating pad and massage therapy 2. Hypertension, essential - ICD9: 401.9, ICD10: I10 - suboptimal control - Increase lisinopril (Zestril/Prinivil) - Encouraged dietary sodium restriction/DASH diet - Recommended regular aerobic exercise. - Recommend home blood pressure monitoring, to bring results in on next visit - Goal of BP <130/80 - LISINOPRIL 10 MG TABLET 3. IFG (impaired fasting glucose) - ICD9: 790.21, ICD10: R73.01 - stable, chronic 4. Dyslipidemia - ICD9: 272.4, ICD10: E78.5 - good control - Encouraged following a low fat, low cholesterol diet. - Check fasting lipid panel 5. Inflammatory arthritis - ICD9: 714.9, ICD10: M19.90 - f/u with Social Media Content Specialist 6. Rib injury - ICD9: 959.11, ICD10: S29.9XXA - improved symptoms, continue heat and stretches prn 7. Osteoarthritis of spine with radiculopathy, cervical region - ICD9: 721.0, ICD10: M47.22 - overall symptoms are improving/stable, continue with home exercises, use of TENS unit, stretches, heating pad and massage therapy 8. DDD (degenerative disc disease), cervical - ICD9: 722.4, ICD10: M50.30 - overall symptoms are improving/stable, continue with home exercises, use of TENS unit, stretches, heating pad and massage therapy Edenilson Nicholson DO Return if no improvement. Follow up with Edenilson L Nicholson, DO. To ER if develops chest pain, shortness of breath,. Discussed risks, benefits, alternatives, and potential side effects of medications. Patient/Guardian expressed understanding and agreed with the plan. See patient instructions. Edenilson Nicholson DO [address] [place] [address] documented in this encounter [facility] 06-13-2021 Miscellaneous Notes Patient notified of results and provider's instructions. Patient verbalizes understanding. Yi Jones RN Can please let patient know that her urine culture did not show an infection. I would like to have her return in a couple of weeks to repeat the urine to ensure the microscopic hematuria (hidden blood) in her urine has resolved. The orders are in. Charissa Jauregui APRN.SHIP KEEPER documented in this encounter [facility] 06-09-2021 History of Present illness Narrative Radiology Service Progress Note PATIENT NAME: Anaya Wilson DATE OF SERVICE: June 09, 2021 TIME: 2:56 PM PATIENT IDENTITY VERIFICATION COMPLETED USING TWO (2) IDENTIFIERS: Name and Date of confirmed by patient verbally. FALL SCREENING: Has the patient had 2 falls in the last year or 1 fall with injury or currently using an Ambulatory Assistive Device (Walker, Cane, Wheelchair, Crutches, etc.)? No PATIENT GENDER DATA: Female. status: : No status: NO. PATIENT RELEVANT IMPLANT DATA REVIEWED: Yes RADIOLOGY DEPARTMENT: General X-ray: Exam(s) Completed: Rib X-Ray: Left Spine X-Ray(s): Thoracic PERIPHERAL IV DATA: Not applicable SIGNED BY: RT Mehul(R) June 09, 2021 2:56 PM documented in this encounter [facility] 06-09-2021 Instructions Charissa Jauregui APRN.SHIP KEEPER - 06/09/2021 2:41 PM EDT 1. Start the prednisone. 2. Ice to the area. 3. Get the xrays. 4. Let us know if no better/worsening. documented in this encounter [facility] 06-09-2021 History of Present illness Narrative This is a 81 year old female who presents today with: Patient presents with: Back Pain: Started on Saturday evening states was pulling on exercise bands that were not attached very well to door knob and lost balance when bands gave away and she fell backwards landing on right side. Pain on left side of lower back. HISTORY OF PRESENT ILLNESS: Anaya Wilson is a 81 year old female. Patient presents with: Back Pain: Started on Saturday evening states was pulling on exercise bands that were not attached very well to door knob and lost balance when bands gave away and she fell backwards landing on right side. Pain on left side of lower back. Pt presents today with complaint of back pain. She was using bands to do her exercises for her neck, and the band wasn't attached to the door well and let loose. She twisted and fell backwards her right side. She has been getting pain in the left back. She also has bruising in her left back. Took a flexeril last night, which did help sleep. She has mobic, but hasn't taken this or tylenol. Refers that she had trouble trying to put a bra on this morning. She was seen in urgent care. 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 Diverticulosis of colon (without mention of hemorrhage) Dry cough 05/23/2016 Ganglion of joint 07/16/2005 Generalized osteoarthrosis, unspecified site Hemorrhage of gastrointestinal tract, unspecified Hemorrhage of rectum and anus Infection of left eye Irritable bowel syndrome Osteomalacia, unspecified Other and unspecified hyperlipidemia Pneumonia, organism unspecified(486) Psoriatic arthritis (HCC) Rectocele 01/05/2011 Skin tear of lower leg without complication 05/23/2016 Sprain of unspecified site of sacroiliac region Unspecified constipation Urge incontinence mild PAST SURGICAL HISTORY Procedure Laterality Date ARTHRP KNE CONDYLE&PLATU MEDIAL&LAT COMPARTMENTS Right 06/03/2017 Knee replacement, total COLONOSCOPY FLX DX W/COLLJ SPEC WHEN PFRMD 04/20/2002 Colonoscopy COLONOSCOPY FLX DX W/COLLJ SPEC WHEN PFRMD 07/25/2011 Colonoscopy NEUROPLASTY &/TRANSPOS MEDIAN NRV CARPAL TUNNE 1979 Carpal tunnel decomp b/l hands NEUROPLASTY &/TRANSPOS MEDIAN NRV CARPAL TUNNE 12/18/2011 RIGHT PAST SURGICAL HISTORY OF Left laser eye surgery for glaucoma SIGMOIDOSCOPY FLX DX W/COLLJ SPEC BR/WA IF PFRMD 06/23/2007 TOTAL ABDOMINAL HYSTERECT W/WO RMVL TUBE OVARY 1989 RUBI/BSO for fibroids and bleeding TOTAL KNEE REPLACEMENT Left 03/28/2020 ALLERGIES Caffeine, Codeine, Darvocet A500 [Propoxyphene N-Acetaminophen], Demerol [Meperidine (Pf)], Entex [Phenylephrine-Guaifenesin], Ephedrine, Griseofulvin, Milk Containing Products, Tramadol, Vicodin [Hydrocodone-Acetaminophen], and Zoloft [Sertraline Hcl] MEDICATIONS Current Outpatient Medications Medication Sig polyethylene glycol 3350 (MIRALAX ORAL) Take 1 Cap-Full by mouth once daily. methotrexate 2.5 mg tablet Take 6 tablets once weekly,on amitriptyline (ELAVIL) 10 mg tablet Take 1 tablet by mouth daily at bedtime. hydrocortisone (ANUSOL-HC) 25 mg suppository 1 Suppository by RECTAL route twice daily as needed (hemorrhoids/rectal pain). lisinopril (ZESTRIL, PRINIVIL) 10 mg tablet Take 1 tablet by mouth once daily. cyclobenzaprine (FLEXERIL) 10 mg tablet Take 1 tablet by mouth twice daily as needed for Muscle Spasm. fluorometholone (FML LIQUID FILM) 0.1 % ophthalmic suspension Use 1 Drop in both eyes once daily. Azelaic Acid (FINACEA) 15 % gel Apply to affected area once daily. multivitamin with minerals (VISION/OPTIGEN) tablet Take 1 tablet by mouth once daily. CALCIUM/MAGNESIUM (CALCIUM AND MAGNESIUM ORAL) Take 3 capsules by mouth twice daily. BIOTIN ORAL Take by mouth once daily. MULTIVITAMIN ORAL Take by mouth once daily. Gummies FOLIC ACID ORAL Take by mouth. Cholecalciferol, Vitamin D3, 5,000 unit tab Take 5,000 Units by mouth once daily. ahjmt-2m-ptu-epa-fish oil-D3 (VITAMIN-D + OMEGA-3) 350 mg- 1,000 unit cap Take by mouth. Takes a total of 5,000 daily Red Yeast Rice Extract 600 mg ORAL Cap Take by mouth. Take one(1) tablet two(2) times daily. Lecithin 400 mg ORAL Cap Take one(1) tablet daily. Glutamine (L-GLUTAMINE) 500 mg ORAL Cap Take one(1) tablet daily. VITAMIN C 500 MG ORAL TAB Take one(1) tablet daily. No current facility-administered medications for this visit. FAMILY HISTORY Problem Relation Age of Onset Heart Mother CHF Cancer Father prostate Psychiatry Father Cancer Brother No Known Problems Daughter No Known Problems Daughter No Known Problems Daughter Breast Cancer Maternal Aunt Social History Tobacco Use Smoking status: Never Smoker Smokeless tobacco: Never Used Vaping Use Vaping Use: Never used Substance Use Topics Alcohol use: No Drug use: No EXAM: BP 136/57 Pulse (!) 50 Resp 12 Wt 52.2 kg (115 lb) SpO2 94% BMI 23.63 kg/m PHYSICAL EXAM: General Appearance: Well appearing, alert, in no acute distress, well-hydrated, well nourished.. Skin: Skin color, texture, turgor normal, no suspicious rashes or lesions. Head: Normocephalic, no masses, lesions, tenderness or abnormalities. Eyes: Anicteric sclera. Pupils are equally round and reactive to light. Extraocular movements are intact. . Lungs: Lungs clear to auscultation. No wheezing, rhonchi, rales.. Heart: RRR without murmur, gallop, or rubs. No ectopy. Back: tenderness over the left lower thoracic back with + ecchymosis. Extremities: No deformities, edema, skin discoloration, clubbing or cyanosis. Good capillary refill. . Neurologic: Gait normal. Reflexes normal and symmetric. Sensation grossly intact.. ASSESSMENT/PLAN: 1. Flank pain - ICD9: 789.09, ICD10: R10.9 We will go ahead and get imaging to rule out any fracture. Start prednisone taper. She is aware to not use any other anti-inflammatories while using the prednisone. She can use Tylenol for any additional breakthrough pain. Ice to the area. She did have a small microscopic hematuria, which is not out of the ordinary for her, as she has had this intermittently in the past. We will go ahead and send urine for culture. If culture is negative, will have patient return in a couple weeks to repeat urine. If this continues with microscopic hematuria, consider seeing urology. - XR RIBS/CHEST 3V AP RIB/OBLS/CXR LEFT - XR THORACIC LIMITED 2V AP/LAT - PREDNISONE 10 MG TABLET - URINE CULTURE - UA DIP, URINE (POC) Discussed treatment plan and patient voices understanding. Patient's questions answered appropriately. Medications and potential side effects were discussed and patient voices understanding. Return to the office as scheduled or as needed for worsening/no improvement. Charissa Jauregui APRN.KEVIN This note was partially generated using [employer] voice recognition system. Note was reviewed for accuracy. There may be minor misspellings or grammar miscues with [employer] voice recognition. documented in this encounter [facility] 06-08-2021 Miscellaneous Notes Patient notified of results, verbalizes understanding of instructions. Mckenna Dc LPN Please let Anaya know that we received her lab results. Her A1C has improved to 5.6, which is out of the prediabetes range. Her cholesterol level has increased a bit. Following a low fat low cholesterol diet, as well as exercise, can help improve these results. Angeline Monterroso APRN.CNP documented in this encounter [facility] 06-07-2021 History of Present illness Narrative Patient presents with: Left Hip Pain: x last night Rib Injury: x last night HPI: Left rib/back pain: Duration: Her elastic band for stretching came off the door yesterday. She twisted and fell onto her right side. Location: Left posterior lower ribs Character: sharp Radiation: No. 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 Diverticulosis of colon (without mention of hemorrhage) Dry cough 05/23/2016 Ganglion of joint 07/16/2005 Generalized osteoarthrosis, unspecified site Hemorrhage of gastrointestinal tract, unspecified Hemorrhage of rectum and anus Infection of left eye Irritable bowel syndrome Osteomalacia, unspecified Other and unspecified hyperlipidemia Pneumonia, organism unspecified(486) Psoriatic arthritis (HCC) Rectocele 01/05/2011 Skin tear of lower leg without complication 05/23/2016 Sprain of unspecified site of sacroiliac region Unspecified constipation Urge incontinence mild MEDICATIONS: methotrexate 2.5 mg tablet Take 6 tablets once weekly,on predniSONE (DELTASONE) 10 mg tablet Take 20mg (2 tabs)/day x1 week, then 10mg (1 tab)/day x1 week, then stop famotidine (PEPCID) 40 mg tablet Take 1 tablet by mouth twice daily. amitriptyline (ELAVIL) 10 mg tablet Take 1 tablet by mouth daily at bedtime. hydrocortisone (ANUSOL-HC) 25 mg suppository 1 Suppository by RECTAL route twice daily as needed (hemorrhoids/rectal pain). lidocaine-glycerin 2 % kit Use 1 application as instructed as needed. For mouth sores lisinopril (ZESTRIL, PRINIVIL) 10 mg tablet Take 1 tablet by mouth once daily. cyclobenzaprine (FLEXERIL) 10 mg tablet Take 1 tablet by mouth twice daily as needed for Muscle Spasm. fluorometholone (FML LIQUID FILM) 0.1 % ophthalmic suspension Use 1 Drop in both eyes once daily. Azelaic Acid (FINACEA) 15 % gel Apply to affected area once daily. multivitamin with minerals (VISION/OPTIGEN) tablet Take 1 tablet by mouth once daily. CALCIUM/MAGNESIUM (CALCIUM AND MAGNESIUM ORAL) Take 3 capsules by mouth twice daily. BIOTIN ORAL Take by mouth once daily. MULTIVITAMIN ORAL Take by mouth once daily. Gummies FOLIC ACID ORAL Take by mouth. Cholecalciferol, Vitamin D3, 5,000 unit tab Take 5,000 Units by mouth once daily. fdxhs-9w-aab-epa-fish oil-D3 (VITAMIN-D + OMEGA-3) 350 mg- 1,000 unit cap Take by mouth. Takes a total of 5,000 daily Red Yeast Rice Extract 600 mg ORAL Cap Take by mouth. Take one(1) tablet two(2) times daily. Lecithin 400 mg ORAL Cap Take one(1) tablet daily. Glutamine (L-GLUTAMINE) 500 mg ORAL Cap Take one(1) tablet daily. VITAMIN C 500 MG ORAL TAB Take one(1) tablet daily. dexAMETHasone (DECADRON) 6 mg tablet Take 1 tablet by mouth daily with breakfast. ALLERGIES: ALLERGIES Allergen Reactions Caffeine Codeine Darvocet A500 [Prop* Vomiting Demerol [Meperidine* Vomiting Entex [Phenylephrin* Ephedrine Other: See Comments Heart palpitations Griseofulvin Milk Containing Pro* Intolerance Nasal stuffiness Tramadol Other: See Comments Nausea, vomiting, dry heaves after carpal tunnel surgery Vicodin [Hydrocodon* Itching Zoloft [Sertraline * Mental Status Change Increased anxiety and feeling of depression. Started in 2005, not noted then VITALS: BP 114/68 Pulse 63 Temp 36.2 C (97.1 F) Resp 18 Wt 52.4 kg (115 lb 9.6 oz) SpO2 98% BMI 23.75 kg/m PHYSICAL EXAM: GEN: pleasant, no acute distress, alert HEENT: PERRL, EOMI, NECK: supple, HEART: regular rate, regular rhythm, no murmurs LUNGS: clear to auscultation, no wheezes or crackles, no increased WOB; minimal discomfort with deep breaths CHEST: Left lower rib few ribs are tender to palpation from the posterior axillary line to paraspinal. No pain with AP squeeze. Minimal discomfort with deep inspiration. BACK: Normal curvature of spine. No midline tenderness. No paraspinal tenderness. Normal gait. ASSESSMENT/PLAN: 1. Muscle strain of chest wall, initial encounter - ICD9: 848.8, ICD10: S29.011A Rib strain. Low concern for rib fracture - presence would not significantly change her treatment plan. Supportive care treatment with as needed analgesia (Mobic). Advance activity as tolerated. Efra Stinson MD documented in this encounter [facility] 05-02-2021 History of Present illness Narrative Radiology Service Progress Note PATIENT NAME: Anaya Wilson DATE OF SERVICE: May 02, 2021 TIME: 1:40 PM PATIENT IDENTITY VERIFICATION COMPLETED USING TWO (2) IDENTIFIERS: Name and Date of confirmed by patient verbally. FALL SCREENING: Has the patient had 2 falls in the last year or 1 fall with injury or currently using an Ambulatory Assistive Device (Walker, Cane, Wheelchair, Crutches, etc.)? No PATIENT GENDER DATA: Female. status: : No status: NO. PATIENT RELEVANT IMPLANT DATA REVIEWED: Not Applicable RADIOLOGY DEPARTMENT: General X-ray: Exam(s) Completed: Upper Extremity X-Ray(s): Hand, bilateral PERIPHERAL IV DATA: Not applicable SIGNED BY: RT Paulie(Boogie) May 02, 2021 1:40 PM documented in this encounter [facility] 04-10-2021 History of Present illness Narrative Radiology Service Progress Note PATIENT NAME: Anaya Wilson DATE OF SERVICE: April 10, 2021 TIME: 3:01 PM PATIENT IDENTITY VERIFICATION COMPLETED USING TWO (2) IDENTIFIERS: Name and Date of confirmed by patient verbally. FALL SCREENING: Has the patient had 2 falls in the last year or 1 fall with injury or currently using an Ambulatory Assistive Device (Walker, Cane, Wheelchair, Crutches, etc.)? No PATIENT GENDER DATA: Female. status: : No status: NO. PATIENT RELEVANT IMPLANT DATA REVIEWED: Not Applicable RADIOLOGY DEPARTMENT: General X-ray: Exam(s) Completed: Chest X-Ray Pelvis X-Ray: Pelvis with Hip Left PERIPHERAL IV DATA: Not applicable SIGNED BY: RT Boy(R) April 10, 2021 3:01 PM documented in this encounter [facility] 10-03-2020 History of Present illness Narrative Radiology Service Progress Note PATIENT NAME: Anaya Wilson DATE OF SERVICE: October 03, 2020 TIME: 1:01 PM PATIENT IDENTITY VERIFICATION COMPLETED USING TWO (2) IDENTIFIERS: Name and Date of confirmed by patient verbally. FALL SCREENING: Has the patient had 2 falls in the last year or 1 fall with injury or currently using an Ambulatory Assistive Device (Walker, Cane, Wheelchair, Crutches, etc.)? No PATIENT GENDER DATA: Female. status: : No status: NO. PATIENT RELEVANT IMPLANT DATA REVIEWED: Not Applicable RADIOLOGY DEPARTMENT: General X-ray: Exam(s) Completed: Chest X-Ray PERIPHERAL IV DATA: Not applicable SIGNED BY: RT Boy(R) October 03, 2020 1:01 PM documented in this encounter [facility] 06-04-2017 History of Past i llness Narrative Problem Noted Date Resolved Date OA (osteoarthritis) of knee 06/04/2017 0406/2017 Chronic pain of right knee 05/20/201707/04 Primary osteoarthritis of left knee 05/10/2017 06/05/2017 Overview: Added automatically from request for surgery [id number] Abdominal pain 11/01/2016 05/20/2017 Cystitis 11/01/2016 05/20/2017 Skin tear of lower leg without complication 05/0309/19/2016 Carpal tunnel syndrome 11/19/2011 7 Acute tracheobronchitis 03/07/2011 02/01/20 12 Cough 07/23/2008 02/01/2012 Ganglion of joint 07/16/2005 09/19/2016 Lumbago 02/08/2005 10/28/2012 Other disorders of synovium, tendon, and bursa(7 27.89) 01/08/2005 05/30/2015 Abdominal pain, right upper quadrant 02/01/2012 Unspecified constipation 012 Diverticulosis of colon (without mention of hemo rrhage) 05/30/2015 Hemorrhage of rectum and anus documented as of this encounter (statuses as of 06/07/2021) [facility] History of Past illness Narrative* Problem Noted Date Resolved Date OA (osteoarthritis) of knee 06/04/201706/2017 Chronic pain of right knee 05/20/201707/04 Primary osteoarthritis of left knee 05/10/2017 06/05/2017 Overview: Added automatically from request for surgery [id number] Abdominal pain 11/01/2016 05/20/2017 Cystitis 11/01/2016 05/20/2017 Skin tear of lower leg without complication 05/0309/19/2016 Carpal tunnel syndrome 11/19/2011 7 Acute tracheobronchitis 03/07/2011 02/01/20 12 Cough 07/23/2008 02/01/2012 Ganglion of joint 07/16/2005 09/19/2016 Lumbago 02/08/2005 10/28/2012 Other disorders of synovium, tendon, and bursa(7 27.89) 01/08/2005 05/30/2015 Abdominal pain, right upper quadrant 02/01/2012 Unspecified constipation 012 Diverticulosis of colon (without mention of hemo rrhage) 05/30/2015 Hemorrhage of rectum and anus documented as of this encounter (statuses as of 06/09/2021) [facility] History of Past illness Narrative* Problem Noted Date Resolved Date OA (osteoarthritis) of knee 06/04/20170 06/2017 Chronic pain of right knee 05/20/201707/04 Primary osteoarthritis of left knee 05/10/2017 06/05/2017 Overview: Added automatically from request for surgery [id number] Abdominal pain 11/01/2016 05/20/2017 Cystitis 11/01/2016 05/20/2017 Skin tear of lower leg without complication 05/0309/19/2016 Carpal tunnel syndrome 11/19/2011 7 Acute tracheobronchitis 03/07/2011 02/01/20 12 Cough 07/23/2008 02/01/2012 Ganglion of joint 07/16/2005 09/19/2016 Lumbago 02/08/2005 10/28/2012 Other disorders of synovium, tendon, and bursa(7 27.89) 01/08/2005 05/30/2015 Abdominal pain, right upper quadrant 02/01/2012 Unspecified constipation 012 Diverticulosis of colon (without mention of hemo rrhage) 05/30/2015 Hemorrhage of rectum and anus documented as of this encounter (statuses as of 06/13/2021) [facility] History of Past illness Narrative* Problem Noted Date Resolved Date OA (osteoarthritis) of knee 06/04/2017 04/06/2017 Chronic pain of right knee 05/20/201707/04 Primary osteoarthritis of left knee 05/10/2017 06/05/2017 Overview: Added automatically from request for surgery [id number] Abdominal pain 11/01/2016 05/20/2017 Cystitis 11/01/2016 05/20/2017 Skin tear of lower leg without complication 05/0309/19/2016 Carpal tunnel syndrome 11/19/2011 7 Acute tracheobronchitis 03/07/2011 02/01/20 12 Cough 07/23/2008 02/01/2012 Ganglion of joint 07/16/2005 09/19/2016 Lumbago 02/08/2005 10/28/2012 Other disorders of synovium, tendon, and bursa(7 27.89) 01/08/2005 05/30/2015 Abdominal pain, right upper quadrant 02/01/2012 Unspecified constipation 012 Diverticulosis of colon (without mention of hemo rrhage) 05/30/2015 Hemorrhage of rectum and anus documented as of this encounter (statuses as of 06/16/2021) [facility]04-03-2018 History of Past illness Narrative* Problem Noted Date Resolved Date OA (osteoarthritis) of knee 06/04/20170 06/2017 Chronic pain of right knee 05/20/201707/04 Primary osteoarthritis of left knee 05/10/2017 06/05/2017 Overview: Added automatically from request for surgery [id number] Abdominal pain 11/01/2016 05/20/2017 Cystitis 11/01/2016 05/20/2017 Skin tear of lower leg without complication 05/0309/19/2016 Carpal tunnel syndrome 11/19/2011 7 Acute tracheobronchitis 03/07/2011 02/01/20 12 Cough 07/23/2008 02/01/2012 Ganglion of joint 07/16/2005 09/19/2016 Lumbago 02/08/2005 10/28/2012 Other disorders of synovium, tendon, and bursa(7 27.89) 01/08/2005 05/30/2015 Abdominal pain, right upper quadrant 02/01/2012 Unspecified constipation 012 Diverticulosis of colon (without mention of hemo rrhage) 05/30/2015 Hemorrhage of rectum and anus documented as of this encounter (statuses as of 06/23/2021) [facility]2018 History of Past illness Narrative* Problem Noted Date Resolved Date OA (osteoarthritis) of knee 06/04/201706/2017 Chronic pain of right knee 05/20/201707/04 Primary osteoarthritis of left knee 05/10/2017 06/05/2017 Overview: Added automatically from request for surgery [id number] Abdominal pain 11/01/2016 05/20/2017 Cystitis 11/01/2016 05/20/2017 Skin tear of lower leg without complication 05/0309/19/2016 Carpal tunnel syndrome 11/19/2011 7 Acute tracheobronchitis 03/07/2011 02/01/20 12 Cough 07/23/2008 02/01/2012 Ganglion of joint 07/16/2005 09/19/2016 Lumbago 02/08/2005 10/28/2012 Other disorders of synovium, tendon, and bursa(7 27.89) 01/08/2005 05/30/2015 Abdominal pain, right upper quadrant 02/01/2012 Unspecified constipation 012 Diverticulosis of colon (without mention of hemo rrhage) 05/30/2015 Hemorrhage of rectum and anus documented as of this encounter (statuses as of 06/28/2021) [facility] History of Past illness Narrative* Problem Noted Date Resolved Date OA (osteoarthritis) of knee 06/04/201706/2017 Chronic pain of right knee 05/20/201707/04 Primary osteoarthritis of left knee 05/10/2017 06/05/2017 Overview: Added automatically from request for surgery [id number] Abdominal pain 11/01/2016 05/20/2017 Cystitis 11/01/2016 05/20/2017 Skin tear of lower leg without complication 05/0309/19/2016 Carpal tunnel syndrome 11/19/2011 7 Acute tracheobronchitis 03/07/2011 02/01/20 12 Cough 07/23/2008 02/01/2012 Ganglion of joint 07/16/2005 09/19/2016 Lumbago 02/08/2005 10/28/2012 Other disorders of synovium, tendon, and bursa(7 27.89) 01/08/2005 05/30/2015 Abdominal pain, right upper quadrant 02/01/2012 Unspecified constipation 012 Diverticulosis of colon (without mention of hemo rrhage) 05/30/2015 Hemorrhage of rectum and anus documented as of this encounter (statuses as of 06/29/2021) [facility] History of Past illness Narrative* Problem Noted Date Resolved Date OA (osteoarthritis) of knee 06/04/20170 06/2017 Chronic pain of right knee 05/20/201707/04 Primary osteoarthritis of left knee 05/10/2017 06/05/2017 Overview: Added automatically from request for surgery [id number] Abdominal pain 11/01/2016 05/20/2017 Cystitis 11/01/2016 05/20/2017 Skin tear of lower leg without complication 05/0309/19/2016 Carpal tunnel syndrome 11/19/2011 7 Acute tracheobronchitis 03/07/2011 02/01/20 12 Cough 07/23/2008 02/01/2012 Ganglion of joint 07/16/2005 09/19/2016 Lumbago 02/08/2005 10/28/2012 Other disorders of synovium, tendon, and bursa(7 27.89) 01/08/2005 05/30/2015 Abdominal pain, right upper quadrant 02/01/2012 Unspecified constipation 012 Diverticulosis of colon (without mention of hemo rrhage) 05/30/2015 Hemorrhage of rectum and anus documented as of this encounter (statuses as of 07/05/2021) [facility] History of Past illness Narrative* Problem Noted Date Resolved Date OA (osteoarthritis) of knee 06/04/2017 0406/2017 Chronic pain of right knee 05/20/201707/04 Primary osteoarthritis of left knee 05/10/2017 06/05/2017 Overview: Added automatically from request for surgery [id number] Abdominal pain 11/01/2016 05/20/2017 Cystitis 11/01/2016 05/20/2017 Skin tear of lower leg without complication 05/0309/19/2016 Carpal tunnel syndrome 11/19/2011 7 Acute tracheobronchitis 03/07/2011 02/01/20 12 Cough 07/23/2008 02/01/2012 Ganglion of joint 07/16/2005 09/19/2016 Lumbago 02/08/2005 10/28/2012 Other disorders of synovium, tendon, and bursa(7 27.89) 01/08/2005 05/30/2015 Abdominal pain, right upper quadrant 02/01/2012 Unspecified constipation 012 Diverticulosis of colon (without mention of hemo rrhage) 05/30/2015 Hemorrhage of rectum and anus documented as of this encounter (statuses as of 07/17/2021) [facility] History of Past illness Narrative* Problem Noted Date Resolved Date OA (osteoarthritis) of knee 06/04/2017/0 06/2017 Chronic pain of right knee 05/20/201707/04 Primary osteoarthritis of left knee 05/10/2017 06/05/2017 Overview: Added automatically from request for surgery [id number] Abdominal pain 11/01/2016 05/20/2017 Cystitis 11/01/2016 05/20/2017 Skin tear of lower leg without complication 05/0309/19/2016 Carpal tunnel syndrome 11/19/2011 7 Acute tracheobronchitis 03/07/2011 02/01/20 12 Cough 07/23/2008 02/01/2012 Ganglion of joint 07/16/2005 09/19/2016 Lumbago 02/08/2005 10/28/2012 Other disorders of synovium, tendon, and bursa(7 27.89) 01/08/2005 05/30/2015 Abdominal pain, right upper quadrant 02/01/2012 Unspecified constipation 012 Diverticulosis of colon (without mention of hemo rrhage) 05/30/2015 Hemorrhage of rectum and anus documented as of this encounter (statuses as of 07/18/2021) [facility] History of Past illness Narrative* Problem Noted Date Resolved Date OA (osteoarthritis) of knee 06/04/20170 06/2017 Chronic pain of right knee 05/20/201707/04 Primary osteoarthritis of left knee 05/10/2017 06/05/2017 Overview: Added automatically from request for surgery [id number] Abdominal pain 11/01/2016 05/20/2017 Cystitis 11/01/2016 05/20/2017 Skin tear of lower leg without complication 05/0309/19/2016 Carpal tunnel syndrome 11/19/2011 7 Acute tracheobronchitis 03/07/2011 02/01/20 12 Cough 07/23/2008 02/01/2012 Ganglion of joint 07/16/2005 09/19/2016 Lumbago 02/08/2005 10/28/2012 Other disorders of synovium, tendon, and bursa(7 27.89) 01/08/2005 05/30/2015 Abdominal pain, right upper quadrant 02/01/2012 Unspecified constipation 012 Diverticulosis of colon (without mention of hemo rrhage) 05/30/2015 Hemorrhage of rectum and anus documented as of this encounter (statuses as of 07/19/2021) [facility] History of Past illness Narrative* Problem Noted Date Resolved Date OA (osteoarthritis) of knee 06/04/20170 06/2017 Chronic pain of right knee 05/20/201707/04 Primary osteoarthritis of left knee 05/10/2017 06/05/2017 Overview: Added automatically from request for surgery [id number] Abdominal pain 11/01/2016 05/20/2017 Cystitis 11/01/2016 05/20/2017 Skin tear of lower leg without complication 05/0309/19/2016 Carpal tunnel syndrome 11/19/2011 7 Acute tracheobronchitis 03/07/2011 02/01/20 12 Cough 07/23/2008 02/01/2012 Ganglion of joint 07/16/2005 09/19/2016 Lumbago 02/08/2005 10/28/2012 Other disorders of synovium, tendon, and bursa(7 27.89) 01/08/2005 05/30/2015 Abdominal pain, right upper quadrant 02/01/2012 Unspecified constipation 012 Diverticulosis of colon (without mention of hemo rrhage) 05/30/2015 Hemorrhage of rectum and anus documented as of this encounter (statuses as of 07/21/2021) [facility] History of Past illness Narrative* Problem Noted Date Resolved Date OA (osteoarthritis) of knee 06/04/20170 06/2017 Chronic pain of right knee 05/20/201707/04 Primary osteoarthritis of left knee 05/10/2017 06/05/2017 Overview: Added automatically from request for surgery [id number] Abdominal pain 11/01/2016 05/20/2017 Cystitis 11/01/2016 05/20/2017 Skin tear of lower leg without complication 05/0309/19/2016 Carpal tunnel syndrome 11/19/2011 7 Acute tracheobronchitis 03/07/2011 02/01/20 12 Cough 07/23/2008 02/01/2012 Ganglion of joint 07/16/2005 09/19/2016 Lumbago 02/08/2005 10/28/2012 Other disorders of synovium, tendon, and bursa(7 27.89) 01/08/2005 05/30/2015 Abdominal pain, right upper quadrant 02/01/2012 Unspecified constipation 012 Diverticulosis of colon (without mention of hemo rrhage) 05/30/2015 Hemorrhage of rectum and anus documented as of this encounter (statuses as of 07/24/2021) [facility] History of Past illness Narrative* Problem Noted Date Resolved Date OA (osteoarthritis) of knee 06/04/201706/2017 Chronic pain of right knee 05/20/201707/04 Primary osteoarthritis of left knee 05/10/2017 06/05/2017 Overview: Added automatically from request for surgery [id number] Abdominal pain 11/01/2016 05/20/2017 Cystitis 11/01/2016 05/20/2017 Skin tear of lower leg without complication 05/0309/19/2016 Carpal tunnel syndrome 11/19/2011 7 Acute tracheobronchitis 03/07/2011 02/01/20 12 Cough 07/23/2008 02/01/2012 Ganglion of joint 07/16/2005 09/19/2016 Lumbago 02/08/2005 10/28/2012 Other disorders of synovium, tendon, and bursa(7 27.89) 01/08/2005 05/30/2015 Abdominal pain, right upper quadrant 02/01/2012 Unspecified constipation 012 Diverticulosis of colon (without mention of hemo rrhage) 05/30/2015 Hemorrhage of rectum and anus documented as of this encounter (statuses as of 08/02/2021) [facility] History of Past illness Narrative* Problem Noted Date Resolved Date OA (osteoarthritis) of knee 06/04/20170 06/2017 Chronic pain of right knee 05/20/201707/04 Primary osteoarthritis of left knee 05/10/2017 06/05/2017 Overview: Added automatically from request for surgery [id number] Abdominal pain 11/01/2016 05/20/2017 Cystitis 11/01/2016 05/20/2017 Skin tear of lower leg without complication 05/0309/19/2016 Carpal tunnel syndrome 11/19/2011 7 Acute tracheobronchitis 03/07/2011 02/01/20 12 Cough 07/23/2008 02/01/2012 Ganglion of joint 07/16/2005 09/19/2016 Lumbago 02/08/2005 10/28/2012 Other disorders of synovium, tendon, and bursa(7 27.89) 01/08/2005 05/30/2015 Abdominal pain, right upper quadrant 02/01/2012 Unspecified constipation 012 Diverticulosis of colon (without mention of hemo rrhage) 05/30/2015 Hemorrhage of rectum and anus documented as of this encounter (statuses as of 08/03/2021) [facility] History of Past illness Narrative* Problem Noted Date Resolved Date OA (osteoarthritis) of knee 06/04/201706/2017 Chronic pain of right knee 05/20/201707/04 Primary osteoarthritis of left knee 05/10/2017 06/05/2017 Overview: Added automatically from request for surgery [id number] Abdominal pain 11/01/2016 05/20/2017 Cystitis 11/01/2016 05/20/2017 Skin tear of lower leg without complication 05/0309/19/2016 Carpal tunnel syndrome 11/19/2011 7 Acute tracheobronchitis 03/07/2011 02/01/20 12 Cough 07/23/2008 02/01/2012 Ganglion of joint 07/16/2005 09/19/2016 Lumbago 02/08/2005 10/28/2012 Other disorders of synovium, tendon, and bursa(7 27.89) 01/08/2005 05/30/2015 Abdominal pain, right upper quadrant 02/01/2012 Unspecified constipation 012 Diverticulosis of colon (without mention of hemo rrhage) 05/30/2015 Hemorrhage of rectum and anus documented as of this encounter (statuses as of 08/07/2021) [facility] History of Past illness Narrative* Problem Noted Date Resolved Date OA (osteoarthritis) of knee 06/04/20170 06/2017 Chronic pain of right knee 05/20/201707/04 Primary osteoarthritis of left knee 05/10/2017 06/05/2017 Overview: Added automatically from request for surgery [id number] Abdominal pain 11/01/2016 05/20/2017 Cystitis 11/01/2016 05/20/2017 Skin tear of lower leg without complication 05/0309/19/2016 Carpal tunnel syndrome 11/19/2011 7 Acute tracheobronchitis 03/07/2011 02/01/20 12 Cough 07/23/2008 02/01/2012 Ganglion of joint 07/16/2005 09/19/2016 Lumbago 02/08/2005 10/28/2012 Other disorders of synovium, tendon, and bursa(7 27.89) 01/08/2005 05/30/2015 Abdominal pain, right upper quadrant 02/01/2012 Unspecified constipation 012 Diverticulosis of colon (without mention of hemo rrhage) 05/30/2015 Hemorrhage of rectum and anus documented as of this encounter (statuses as of 09/12/2021) [facility] History of Past illness Narrative* Problem Noted Date Resolved Date OA (osteoarthritis) of knee 06/04/20170 06/2017 Chronic pain of right knee 05/20/201707/04 Primary osteoarthritis of left knee 05/10/2017 06/05/2017 Overview: Added automatically from request for surgery [id number] Abdominal pain 11/01/2016 05/20/2017 Cystitis 11/01/2016 05/20/2017 Skin tear of lower leg without complication 05/0309/19/2016 Carpal tunnel syndrome 11/19/2011 7 Acute tracheobronchitis 03/07/2011 02/01/20 12 Cough 07/23/2008 02/01/2012 Ganglion of joint 07/16/2005 09/19/2016 Lumbago 02/08/2005 10/28/2012 Other disorders of synovium, tendon, and bursa(7 27.89) 01/08/2005 05/30/2015 Abdominal pain, right upper quadrant 02/01/2012 Unspecified constipation 012 Diverticulosis of colon (without mention of hemo rrhage) 05/30/2015 Hemorrhage of rectum and anus documented as of this encounter (statuses as of 09/18/2021) [facility] History of Past illness Narrative* Problem Noted Date Resolved Date OA (osteoarthritis) of knee 06/04/20170 06/2017 Chronic pain of right knee 05/20/201707/04 Primary osteoarthritis of left knee 05/10/2017 06/05/2017 Overview: Added automatically from request for surgery [id number] Abdominal pain 11/01/2016 05/20/2017 Cystitis 11/01/2016 05/20/2017 Skin tear of lower leg without complication 05/0309/19/2016 Carpal tunnel syndrome 11/19/2011 7 Acute tracheobronchitis 03/07/2011 02/01/20 12 Cough 07/23/2008 02/01/2012 Ganglion of joint 07/16/2005 09/19/2016 Lumbago 02/08/2005 10/28/2012 Other disorders of synovium, tendon, and bursa(7 27.89) 01/08/2005 05/30/2015 Abdominal pain, right upper quadrant 02/01/2012 Unspecified constipation 012 Diverticulosis of colon (without mention of hemo rrhage) 05/30/2015 Hemorrhage of rectum and anus documented as of this encounter (statuses as of 09/18/2021) [facility]2018 History of Past illness Narrative* Problem Noted Date Resolved Date OA (osteoarthritis) of knee 06/04/20170 06/2017 Chronic pain of right knee 05/20/201707/04 Primary osteoarthritis of left knee 05/10/2017 06/05/2017 Overview: Added automatically from request for surgery [id number] Abdominal pain 11/01/2016 05/20/2017 Cystitis 11/01/2016 05/20/2017 Skin tear of lower leg without complication 05/0309/19/2016 Carpal tunnel syndrome 11/19/2011 7 Acute tracheobronchitis 03/07/2011 02/01/20 12 Cough 07/23/2008 02/01/2012 Ganglion of joint 07/16/2005 09/19/2016 Other disorders of synovium, tendon, and bursa(7 27.89) 01/08/2005 05/30/2015 Abdominal pain, right upper quadrant 02/01/2012 Unspecified constipation 012 Diverticulosis of colon (without mention of hemo rrhage) 05/30/2015 Hemorrhage of rectum and anus documented as of this encounter (statuses as of 10/12/2021) [facility] History of Past illness Narrative* Problem Noted Date Resolved Date OA (osteoarthritis) of knee 06/04/2017 04/0 06/2017 Chronic pain of right knee 05/20/201707/04 Primary osteoarthritis of left knee 05/10/2017 06/05/2017 Overview: Added automatically from request for surgery [id number] Abdominal pain 11/01/2016 05/20/2017 Cystitis 11/01/2016 05/20/2017 Skin tear of lower leg without complication 05/0309/19/2016 Carpal tunnel syndrome 11/19/2011 7 Acute tracheobronchitis 03/07/2011 02/01/20 12 Cough 07/23/2008 02/01/2012 Ganglion of joint 07/16/2005 09/19/2016 Other disorders of synovium, tendon, and bursa(7 27.89) 01/08/2005 05/30/2015 Abdominal pain, right upper quadrant 02/01/2012 Unspecified constipation 012 Diverticulosis of colon (without mention of hemo rrhage) 05/30/2015 Hemorrhage of rectum and anus documented as of this encounter (statuses as of 10/20/2021) [facility] History of Past illness Narrative* Problem Noted Date Resolved Date OA (osteoarthritis) of knee 06/04/20170 06/2017 Chronic pain of right knee 05/20/201707/04 Primary osteoarthritis of left knee 05/10/2017 06/05/2017 Overview: Added automatically from request for surgery [id number] Abdominal pain 11/01/2016 05/20/2017 Cystitis 11/01/2016 05/20/2017 Skin tear of lower leg without complication 05/0309/19/2016 Carpal tunnel syndrome 11/19/2011 7 Acute tracheobronchitis 03/07/2011 02/01/20 12 Cough 07/23/2008 02/01/2012 Ganglion of joint 07/16/2005 09/19/2016 Other disorders of synovium, tendon, and bursa(7 27.89) 01/08/2005 05/30/2015 Abdominal pain, right upper quadrant 02/01/2012 Unspecified constipation 012 Diverticulosis of colon (without mention of hemo rrhage) 05/30/2015 Hemorrhage of rectum and anus documented as of this encounter (statuses as of 10/27/2021) [facility] History of Past illness Narrative* Problem Noted Date Resolved Date OA (osteoarthritis) of knee 06/04/20170 06/2017 Chronic pain of right knee 05/20/201707/04 Primary osteoarthritis of left knee 05/10/2017 06/05/2017 Overview: Added automatically from request for surgery [id number] Abdominal pain 11/01/2016 05/20/2017 Cystitis 11/01/2016 05/20/2017 Skin tear of lower leg without complication 05/0309/19/2016 Carpal tunnel syndrome 11/19/2011 7 Acute tracheobronchitis 03/07/2011 02/01/20 12 Cough 07/23/2008 02/01/2012 Ganglion of joint 07/16/2005 09/19/2016 Other disorders of synovium, tendon, and bursa(7 27.89) 01/08/2005 05/30/2015 Abdominal pain, right upper quadrant 02/01/2012 Unspecified constipation 012 Diverticulosis of colon (without mention of hemo rrhage) 05/30/2015 Hemorrhage of rectum and anus documented as of this encounter (statuses as of 10/29/2021) [facility] History of Past illness Narrative* Problem Noted Date Resolved Date OA (osteoarthritis) of knee 06/04/20170 06/2017 Chronic pain of right knee 05/20/201707/04 Primary osteoarthritis of left knee 05/10/2017 06/05/2017 Overview: Added automatically from request for surgery [id number] Abdominal pain 11/01/2016 05/20/2017 Cystitis 11/01/2016 05/20/2017 Skin tear of lower leg without complication 05/0309/19/2016 Carpal tunnel syndrome 11/19/2011 7 Acute tracheobronchitis 03/07/2011 02/01/20 12 Cough 07/23/2008 02/01/2012 Ganglion of joint 07/16/2005 09/19/2016 Other disorders of synovium, tendon, and bursa(7 27.89) 01/08/2005 05/30/2015 Abdominal pain, right upper quadrant 02/01/2012 Unspecified constipation 012 Diverticulosis of colon (without mention of hemo rrhage) 05/30/2015 Hemorrhage of rectum and anus documented as of this encounter (statuses as of 10/30/2021) [facility] History of Past illness Narrative* Problem Noted Date Resolved Date OA (osteoarthritis) of knee 06/04/2017 040 06/2017 Chronic pain of right knee 05/20/201707/04 Primary osteoarthritis of left knee 05/10/2017 06/05/2017 Overview: Added automatically from request for surgery [id number] Abdominal pain 11/01/2016 05/20/2017 Cystitis 11/01/2016 05/20/2017 Skin tear of lower leg without complication 05/0309/19/2016 Carpal tunnel syndrome 11/19/2011 7 Acute tracheobronchitis 03/07/2011 02/01/20 12 Cough 07/23/2008 02/01/2012 Ganglion of joint 07/16/2005 09/19/2016 Other disorders of synovium, tendon, and bursa(7 27.89) 01/08/2005 05/30/2015 Abdominal pain, right upper quadrant 02/01/2012 Unspecified constipation 012 Diverticulosis of colon (without mention of hemo rrhage) 05/30/2015 Hemorrhage of rectum and anus documented as of this encounter (statuses as of 10/30/2021) [facility] History of Past illness Narrative* Problem Noted Date Resolved Date OA (osteoarthritis) of knee 06/04/201706/2017 Chronic pain of right knee 05/20/201707/04 Primary osteoarthritis of left knee 05/10/2017 06/05/2017 Overview: Added automatically from request for surgery [id number] Abdominal pain 11/01/2016 05/20/2017 Cystitis 11/01/2016 05/20/2017 Skin tear of lower leg without complication 05/0309/19/2016 Carpal tunnel syndrome 11/19/2011 7 Acute tracheobronchitis 03/07/2011 02/01/20 12 Cough 07/23/2008 02/01/2012 Ganglion of joint 07/16/2005 09/19/2016 Other disorders of synovium, tendon, and bursa(7 27.89) 01/08/2005 05/30/2015 Abdominal pain, right upper quadrant 02/01/2012 Unspecified constipation 012 Diverticulosis of colon (without mention of hemo rrhage) 05/30/2015 Hemorrhage of rectum and anus documented as of this encounter (statuses as of 11/01/2021) [facility] History of Past illness Narrative* Problem Noted Date Resolved Date OA (osteoarthritis) of knee 06/04/201706/2017 Chronic pain of right knee 05/20/201707/04 Primary osteoarthritis of left knee 05/10/2017 06/05/2017 Overview: Added automatically from request for surgery [id number] Abdominal pain 11/01/2016 05/20/2017 Cystitis 11/01/2016 05/20/2017 Skin tear of lower leg without complication 05/0309/19/2016 Carpal tunnel syndrome 11/19/2011 7 Acute tracheobronchitis 03/07/2011 02/01/20 12 Cough 07/23/2008 02/01/2012 Ganglion of joint 07/16/2005 09/19/2016 Other disorders of synovium, tendon, and bursa(7 27.89) 01/08/2005 05/30/2015 Abdominal pain, right upper quadrant 02/01/2012 Unspecified constipation 012 Diverticulosis of colon (without mention of hemo rrhage) 05/30/2015 Hemorrhage of rectum and anus documented as of this encounter (statuses as of 11/01/2021) [facility] History of Past illness Narrative* Problem Noted Date Resolved Date OA (osteoarthritis) of knee 06/04/201706/2017 Chronic pain of right knee 05/20/201707/04 Primary osteoarthritis of left knee 05/10/2017 06/05/2017 Overview: Added automatically from request for surgery [id number] Abdominal pain 11/01/2016 05/20/2017 Cystitis 11/01/2016 05/20/2017 Skin tear of lower leg without complication 05/0309/19/2016 Carpal tunnel syndrome 11/19/2011 7 Acute tracheobronchitis 03/07/2011 02/01/20 12 Cough 07/23/2008 02/01/2012 Ganglion of joint 07/16/2005 09/19/2016 Other disorders of synovium, tendon, and bursa(7 27.89) 01/08/2005 05/30/2015 Abdominal pain, right upper quadrant 02/01/2012 Unspecified constipation 012 Diverticulosis of colon (without mention of hemo rrhage) 05/30/2015 Hemorrhage of rectum and anus documented as of this encounter (statuses as of 11/20/2021) [facility] History of Past illness Narrative* Problem Noted Date Resolved Date OA (osteoarthritis) of knee 06/04/20170 06/2017 Chronic pain of right knee 05/20/201707/04 Primary osteoarthritis of left knee 05/10/2017 06/05/2017 Overview: Added automatically from request for surgery [id number] Abdominal pain 11/01/2016 05/20/2017 Cystitis 11/01/2016 05/20/2017 Skin tear of lower leg without complication 05/0309/19/2016 Carpal tunnel syndrome 11/19/2011 7 Acute tracheobronchitis 03/07/2011 02/01/20 12 Cough 07/23/2008 02/01/2012 Ganglion of joint 07/16/2005 09/19/2016 Other disorders of synovium, tendon, and bursa(7 27.89) 01/08/2005 05/30/2015 Abdominal pain, right upper quadrant 02/01/2012 Unspecified constipation 012 Diverticulosis of colon (without mention of hemo rrhage) 05/30/2015 Hemorrhage of rectum and anus documented as of this encounter (statuses as of 12/03/2021) [facility] History of Past illness Narrative* Problem Noted Date Resolved Date OA (osteoarthritis) of knee 06/04/201706/2017 Chronic pain of right knee 05/20/201707/04 Primary osteoarthritis of left knee 05/10/2017 06/05/2017 Overview: Added automatically from request for surgery [id number] Abdominal pain 11/01/2016 05/20/2017 Cystitis 11/01/2016 05/20/2017 Skin tear of lower leg without complication 05/0309/19/2016 Carpal tunnel syndrome 11/19/2011 7 Acute tracheobronchitis 03/07/2011 02/01/20 12 Cough 07/23/2008 02/01/2012 Ganglion of joint 07/16/2005 09/19/2016 Other disorders of synovium, tendon, and bursa(7 27.89) 01/08/2005 05/30/2015 Abdominal pain, right upper quadrant 02/01/2012 Unspecified constipation 012 Diverticulosis of colon (without mention of hemo rrhage) 05/30/2015 Hemorrhage of rectum and anus documented as of this encounter (statuses as of 12/05/2021) [facility]-03[facility]2018 History of Past illness Narrative* Problem Noted Date Resolved Date OA (osteoarthritis) of knee 06/04/20170 06/2017 Chronic pain of right knee 05/20/201707/04 Primary osteoarthritis of left knee 05/10/2017 06/05/2017 Overview: Added automatically from request for surgery [id number] Abdominal pain 11/01/2016 05/20/2017 Cystitis 11/01/2016 05/20/2017 Skin tear of lower leg without complication 05/0309/19/2016 Carpal tunnel syndrome 11/19/2011 7 Acute tracheobronchitis 03/07/2011 02/01/20 12 Cough 07/23/2008 02/01/2012 Ganglion of joint 07/16/2005 09/19/2016 Other disorders of synovium, tendon, and bursa(7 27.89) 01/08/2005 05/30/2015 Abdominal pain, right upper quadrant 02/01/2012 Unspecified constipation 012 Diverticulosis of colon (without mention of hemo rrhage) 05/30/2015 Hemorrhage of rectum and anus documented as of this encounter (statuses as of 12/06/2021) [facility]2018 History of Past illness Narrative* Problem Noted Date Resolved Date OA (osteoarthritis) of knee 06/04/20170 06/2017 Chronic pain of right knee 05/20/201707/04 Primary osteoarthritis of left knee 05/10/2017 06/05/2017 Overview: Added automatically from request for surgery [id number] Abdominal pain 11/01/2016 05/20/2017 Cystitis 11/01/2016 05/20/2017 Skin tear of lower leg without complication 05/0309/19/2016 Carpal tunnel syndrome 11/19/2011 7 Acute tracheobronchitis 03/07/2011 02/01/20 12 Cough 07/23/2008 02/01/2012 Ganglion of joint 07/16/2005 09/19/2016 Other disorders of synovium, tendon, and bursa(7 27.89) 01/08/2005 05/30/2015 Abdominal pain, right upper quadrant 02/01/2012 Unspecified constipation 012 Diverticulosis of colon (without mention of hemo rrhage) 05/30/2015 Hemorrhage of rectum and anus documented as of this encounter (statuses as of 12/22/2021) [facility]2018 History of Past illness Narrative* Problem Noted Date Resolved Date OA (osteoarthritis) of knee 06/04/20170 06/2017 Chronic pain of right knee 05/20/201707/04 Primary osteoarthritis of left knee 05/10/2017 06/05/2017 Overview: Added automatically from request for surgery [id number] Abdominal pain 11/01/2016 05/20/2017 Cystitis 11/01/2016 05/20/2017 Skin tear of lower leg without complication 05/0309/19/2016 Carpal tunnel syndrome 11/19/2011 7 Acute tracheobronchitis 03/07/2011 02/01/20 12 Cough 07/23/2008 02/01/2012 Ganglion of joint 07/16/2005 09/19/2016 Other disorders of synovium, tendon, and bursa(7 27.89) 01/08/2005 05/30/2015 Abdominal pain, right upper quadrant 02/01/2012 Unspecified constipation 012 Diverticulosis of colon (without mention of hemo rrhage) 05/30/2015 Hemorrhage of rectum and anus documented as of this encounter (statuses as of 12/23/2021) [facility] History of Past illness Narrative* Problem Noted Date Resolved Date OA (osteoarthritis) of knee 06/04/20170 06/2017 Chronic pain of right knee 05/20/201707/04 Primary osteoarthritis of left knee 05/10/2017 06/05/2017 Overview: Added automatically from request for surgery [id number] Abdominal pain 11/01/2016 05/20/2017 Cystitis 11/01/2016 05/20/2017 Skin tear of lower leg without complication 05/0309/19/2016 Carpal tunnel syndrome 11/19/2011 7 Acute tracheobronchitis 03/07/2011 02/01/20 12 Cough 07/23/2008 02/01/2012 Ganglion of joint 07/16/2005 09/19/2016 Other disorders of synovium, tendon, and bursa(7 27.89) 01/08/2005 05/30/2015 Abdominal pain, right upper quadrant 02/01/2012 Unspecified constipation 012 Diverticulosis of colon (without mention of hemo rrhage) 05/30/2015 Hemorrhage of rectum and anus documented as of this encounter (statuses as of 01/12/2022) [facility] History of Past illness Narrative* Problem Noted Date Resolved Date OA (osteoarthritis) of knee 06/04/201706/2017 Chronic pain of right knee 05/20/201707/04 Primary osteoarthritis of left knee 05/10/2017 06/05/2017 Overview: Added automatically from request for surgery [id number] Abdominal pain 11/01/2016 05/20/2017 Cystitis 11/01/2016 05/20/2017 Skin tear of lower leg without complication 05/0309/19/2016 Carpal tunnel syndrome 11/19/2011 7 Acute tracheobronchitis 03/07/2011 02/01/20 12 Cough 07/23/2008 02/01/2012 Ganglion of joint 07/16/2005 09/19/2016 Other disorders of synovium, tendon, and bursa(7 27.89) 01/08/2005 05/30/2015 Abdominal pain, right upper quadrant 02/01/2012 Unspecified constipation 012 Diverticulosis of colon (without mention of hemo rrhage) 05/30/2015 Hemorrhage of rectum and anus documented as of this encounter (statuses as of 01/12/2022) [facility] History of Past illness Narrative* Problem Noted Date Resolved Date OA (osteoarthritis) of knee 06/04/201706/2017 Chronic pain of right knee 05/20/201707/04 Primary osteoarthritis of left knee 05/10/2017 06/05/2017 Overview: Added automatically from request for surgery [id number] Abdominal pain 11/01/2016 05/20/2017 Cystitis 11/01/2016 05/20/2017 Skin tear of lower leg without complication 05/0309/19/2016 Carpal tunnel syndrome 11/19/2011 7 Acute tracheobronchitis 03/07/2011 02/01/20 12 Cough 07/23/2008 02/01/2012 Ganglion of joint 07/16/2005 09/19/2016 Other disorders of synovium, tendon, and bursa(7 27.89) 01/08/2005 05/30/2015 Abdominal pain, right upper quadrant 02/01/2012 Unspecified constipation 012 Diverticulosis of colon (without mention of hemo rrhage) 05/30/2015 Hemorrhage of rectum and anus documented as of this encounter (statuses as of 01/14/2022) [facility] History of Past illness Narrative* Problem Noted Date Resolved Date OA (osteoarthritis) of knee 06/04/2017 04/06/2017 Chronic pain of right knee 05/20/201707/04 Primary osteoarthritis of left knee 05/10/2017 06/05/2017 Overview: Added automatically from request for surgery [id number] Abdominal pain 11/01/2016 05/20/2017 Cystitis 11/01/2016 05/20/2017 Skin tear of lower leg without complication 05/0309/19/2016 Carpal tunnel syndrome 11/19/2011 7 Acute tracheobronchitis 03/07/2011 02/01/20 12 Cough 07/23/2008 02/01/2012 Ganglion of joint 07/16/2005 09/19/2016 Other disorders of synovium, tendon, and bursa(7 27.89) 01/08/2005 05/30/2015 Abdominal pain, right upper quadrant 02/01/2012 Unspecified constipation 012 Diverticulosis of colon (without mention of hemo rrhage) 05/30/2015 Hemorrhage of rectum and anus documented as of this encounter (statuses as of 01/16/2022) [place] [address]-03-2018 History of Past illness Narrative* Problem Noted Date Resolved Date OA (osteoarthritis) of knee 06/04/2017 04/0 06/2017 Chronic pain of right knee 05/20/201707/04 Primary osteoarthritis of left knee 05/10/2017 06/05/2017 Overview: Added automatically from request for surgery [id number] Abdominal pain 11/01/2016 05/20/2017 Cystitis 11/01/2016 05/20/2017 Skin tear of lower leg without complication 05/0309/19/2016 Carpal tunnel syndrome 11/19/2011 7 Acute tracheobronchitis 03/07/2011 02/01/20 12 Cough 07/23/2008 02/01/2012 Ganglion of joint 07/16/2005 09/19/2016 Other disorders of synovium, tendon, and bursa(7 27.89) 01/08/2005 05/30/2015 Abdominal pain, right upper quadrant 02/01/2012 Unspecified constipation 012 Diverticulosis of colon (without mention of hemo rrhage) 05/30/2015 Hemorrhage of rectum and anus documented as of this encounter (statuses as of 01/16/2022) [facility] History of Past illness Narrative* Problem Noted Date Resolved Date OA (osteoarthritis) of knee 06/04/20170 06/2017 Chronic pain of right knee 05/20/201707/04 Primary osteoarthritis of left knee 05/10/2017 06/05/2017 Overview: Added automatically from request for surgery [id number] Abdominal pain 11/01/2016 05/20/2017 Cystitis 11/01/2016 05/20/2017 Skin tear of lower leg without complication 05/0309/19/2016 Carpal tunnel syndrome 11/19/2011 7 Acute tracheobronchitis 03/07/2011 02/01/20 12 Cough 07/23/2008 02/01/2012 Ganglion of joint 07/16/2005 09/19/2016 Other disorders of synovium, tendon, and bursa(7 27.89) 01/08/2005 05/30/2015 Abdominal pain, right upper quadrant 02/01/2012 Unspecified constipation 012 Diverticulosis of colon (without mention of hemo rrhage) 05/30/2015 Hemorrhage of rectum and anus documented as of this encounter (statuses as of 01/20/2022) [facility] History of Past illness Narrative* Problem Noted Date Resolved Date OA (osteoarthritis) of knee 06/04/20170 06/2017 Chronic pain of right knee 05/20/201707/04 Primary osteoarthritis of left knee 05/10/2017 06/05/2017 Overview: Added automatically from request for surgery [id number] Abdominal pain 11/01/2016 05/20/2017 Cystitis 11/01/2016 05/20/2017 Skin tear of lower leg without complication 05/0309/19/2016 Carpal tunnel syndrome 11/19/2011 7 Acute tracheobronchitis 03/07/2011 02/01/20 12 Cough 07/23/2008 02/01/2012 Ganglion of joint 07/16/2005 09/19/2016 Other disorders of synovium, tendon, and bursa(7 27.89) 01/08/2005 05/30/2015 Abdominal pain, right upper quadrant 02/01/2012 Unspecified constipation 012 Diverticulosis of colon (without mention of hemo rrhage) 05/30/2015 Hemorrhage of rectum and anus documented as of this encounter (statuses as of 01/23/2022) [facility]2018 History of Past illness Narrative* Problem Noted Date Resolved Date OA (osteoarthritis) of knee 06/04/20170 06/2017 Chronic pain of right knee 05/20/201707/04 Primary osteoarthritis of left knee 05/10/2017 06/05/2017 Overview: Added automatically from request for surgery [id number] Abdominal pain 11/01/2016 05/20/2017 Cystitis 11/01/2016 05/20/2017 Skin tear of lower leg without complication 05/0309/19/2016 Carpal tunnel syndrome 11/19/2011 7 Acute tracheobronchitis 03/07/2011 02/01/20 12 Cough 07/23/2008 02/01/2012 Ganglion of joint 07/16/2005 09/19/2016 Other disorders of synovium, tendon, and bursa(7 27.89) 01/08/2005 05/30/2015 Abdominal pain, right upper quadrant 02/01/2012 Unspecified constipation 012 Diverticulosis of colon (without mention of hemo rrhage) 05/30/2015 Hemorrhage of rectum and anus documented as of this encounter (statuses as of 01/23/2022) [facility]2018 History of Past illness Narrative* Problem Noted Date Resolved Date OA (osteoarthritis) of knee 06/04/201706/2017 Chronic pain of right knee 05/20/201707/04 Primary osteoarthritis of left knee 05/10/2017 06/05/2017 Overview: Added automatically from request for surgery [id number] Abdominal pain 11/01/2016 05/20/2017 Cystitis 11/01/2016 05/20/2017 Skin tear of lower leg without complication 05/0309/19/2016 Carpal tunnel syndrome 11/19/2011 7 Acute tracheobronchitis 03/07/2011 02/01/20 12 Cough 07/23/2008 02/01/2012 Ganglion of joint 07/16/2005 09/19/2016 Other disorders of synovium, tendon, and bursa(7 27.89) 01/08/2005 05/30/2015 Abdominal pain, right upper quadrant 02/01/2012 Unspecified constipation 012 Diverticulosis of colon (without mention of hemo rrhage) 05/30/2015 Hemorrhage of rectum and anus documented as of this encounter (statuses as of 01/24/2022) [facility]2018 History of Past illness Narrative* Problem Noted Date Resolved Date OA (osteoarthritis) of knee 06/04/201706/2017 Chronic pain of right knee 05/20/201707/04 Primary osteoarthritis of left knee 05/10/2017 06/05/2017 Overview: Added automatically from request for surgery [id number] Abdominal pain 11/01/2016 05/20/2017 Cystitis 11/01/2016 05/20/2017 Skin tear of lower leg without complication 05/0309/19/2016 Carpal tunnel syndrome 11/19/2011 7 Acute tracheobronchitis 03/07/2011 02/01/20 12 Cough 07/23/2008 02/01/2012 Ganglion of joint 07/16/2005 09/19/2016 Other disorders of synovium, tendon, and bursa(7 27.89) 01/08/2005 05/30/2015 Abdominal pain, right upper quadrant 02/01/2012 Unspecified constipation 012 Diverticulosis of colon (without mention of hemo rrhage) 05/30/2015 Hemorrhage of rectum and anus documented as of this encounter (statuses as of 02/09/2022) [facility]2018 History of Past illness Narrative* Problem Noted Date Resolved Date OA (osteoarthritis) of knee 06/04/201706/2017 Chronic pain of right knee 05/20/201707/04 Primary osteoarthritis of left knee 05/10/2017 06/05/2017 Overview: Added automatically from request for surgery [id number] Abdominal pain 11/01/2016 05/20/2017 Cystitis 11/01/2016 05/20/2017 Skin tear of lower leg without complication 05/0309/19/2016 Carpal tunnel syndrome 11/19/2011 7 Acute tracheobronchitis 03/07/2011 02/01/20 12 Cough 07/23/2008 02/01/2012 Ganglion of joint 07/16/2005 09/19/2016 Other disorders of synovium, tendon, and bursa(7 27.89) 01/08/2005 05/30/2015 Abdominal pain, right upper quadrant 02/01/2012 Unspecified constipation 012 Diverticulosis of colon (without mention of hemo rrhage) 05/30/2015 Hemorrhage of rectum and anus documented as of this encounter (statuses as of 02/10/2022) [facility]2018 History of Past illness Narrative* Problem Noted Date Resolved Date OA (osteoarthritis) of knee 06/04/20170 06/2017 Chronic pain of right knee 05/20/201707/04 Primary osteoarthritis of left knee 05/10/2017 06/05/2017 Overview: Added automatically from request for surgery [id number] Abdominal pain 11/01/2016 05/20/2017 Cystitis 11/01/2016 05/20/2017 Skin tear of lower leg without complication 05/0309/19/2016 Carpal tunnel syndrome 11/19/2011 7 Acute tracheobronchitis 03/07/2011 02/01/20 12 Cough 07/23/2008 02/01/2012 Ganglion of joint 07/16/2005 09/19/2016 Other disorders of synovium, tendon, and bursa(7 27.89) 01/08/2005 05/30/2015 Abdominal pain, right upper quadrant 02/01/2012 Unspecified constipation 012 Diverticulosis of colon (without mention of hemo rrhage) 05/30/2015 Hemorrhage of rectum and anus documented as of this encounter (statuses as of 02/11/2022) [facility]2018 History of Past illness Narrative* Problem Noted Date Resolved Date OA (osteoarthritis) of knee 06/04/201706/2017 Chronic pain of right knee 05/20/201707/04 Primary osteoarthritis of left knee 05/10/2017 06/05/2017 Overview: Added automatically from request for surgery [id number] Abdominal pain 11/01/2016 05/20/2017 Cystitis 11/01/2016 05/20/2017 Skin tear of lower leg without complication 05/0309/19/2016 Carpal tunnel syndrome 11/19/2011 7 Acute tracheobronchitis 03/07/2011 02/01/20 12 Cough 07/23/2008 02/01/2012 Ganglion of joint 07/16/2005 09/19/2016 Other disorders of synovium, tendon, and bursa(7 27.89) 01/08/2005 05/30/2015 Abdominal pain, right upper quadrant 02/01/2012 Unspecified constipation 012 Diverticulosis of colon (without mention of hemo rrhage) 05/30/2015 Hemorrhage of rectum and anus documented as of this encounter (statuses as of 02/14/2022) [facility]2018 History of Past illness Narrative* Problem Noted Date Resolved Date OA (osteoarthritis) of knee 06/04/20170 06/2017 Chronic pain of right knee 05/20/201707/04 Primary osteoarthritis of left knee 05/10/2017 06/05/2017 Overview: Added automatically from request for surgery [id number] Abdominal pain 11/01/2016 05/20/2017 Cystitis 11/01/2016 05/20/2017 Skin tear of lower leg without complication 05/0309/19/2016 Carpal tunnel syndrome 11/19/2011 7 Acute tracheobronchitis 03/07/2011 02/01/20 12 Cough 07/23/2008 02/01/2012 Ganglion of joint 07/16/2005 09/19/2016 Other disorders of synovium, tendon, and bursa(7 27.89) 01/08/2005 05/30/2015 Abdominal pain, right upper quadrant 02/01/2012 Unspecified constipation 012 Diverticulosis of colon (without mention of hemo rrhage) 05/30/2015 Hemorrhage of rectum and anus documented as of this encounter (statuses as of 02/16/2022) [facility] History of Past illness Narrative* Problem Noted Date Resolved Date OA (osteoarthritis) of knee 06/04/20170 06/2017 Chronic pain of right knee 05/20/201707/04 Primary osteoarthritis of left knee 05/10/2017 06/05/2017 Overview: Added automatically from request for surgery [id number] Abdominal pain 11/01/2016 05/20/2017 Cystitis 11/01/2016 05/20/2017 Skin tear of lower leg without complication 05/0309/19/2016 Carpal tunnel syndrome 11/19/2011 7 Acute tracheobronchitis 03/07/2011 02/01/20 12 Cough 07/23/2008 02/01/2012 Ganglion of joint 07/16/2005 09/19/2016 Other disorders of synovium, tendon, and bursa(7 27.89) 01/08/2005 05/30/2015 Abdominal pain, right upper quadrant 02/01/2012 Unspecified constipation 012 Diverticulosis of colon (without mention of hemo rrhage) 05/30/2015 Hemorrhage of rectum and anus documented as of this encounter (statuses as of 03/08/2022) [facility] History of Past illness Narrative* Problem Noted Date Resolved Date OA (osteoarthritis) of knee 06/04/20170 06/2017 Chronic pain of right knee 05/20/201707/04 Primary osteoarthritis of left knee 05/10/2017 06/05/2017 Overview: Added automatically from request for surgery [id number] Abdominal pain 11/01/2016 05/20/2017 Cystitis 11/01/2016 05/20/2017 Skin tear of lower leg without complication 05/0309/19/2016 Carpal tunnel syndrome 11/19/2011 7 Acute tracheobronchitis 03/07/2011 02/01/20 12 Cough 07/23/2008 02/01/2012 Ganglion of joint 07/16/2005 09/19/2016 Other disorders of synovium, tendon, and bursa(7 27.89) 01/08/2005 05/30/2015 Abdominal pain, right upper quadrant 02/01/2012 Unspecified constipation 012 Diverticulosis of colon (without mention of hemo rrhage) 05/30/2015 Hemorrhage of rectum and anus documented as of this encounter (statuses as of 03/08/2022) [facility] History of Past illness Narrative* Problem Noted Date Resolved Date OA (osteoarthritis) of knee 06/04/20170 06/2017 Chronic pain of right knee 05/20/201707/04 Primary osteoarthritis of left knee 05/10/2017 06/05/2017 Overview: Added automatically from request for surgery [id number] Abdominal pain 11/01/2016 05/20/2017 Cystitis 11/01/2016 05/20/2017 Skin tear of lower leg without complication 05/0309/19/2016 Carpal tunnel syndrome 11/19/2011 7 Acute tracheobronchitis 03/07/2011 02/01/20 12 Cough 07/23/2008 02/01/2012 Ganglion of joint 07/16/2005 09/19/2016 Other disorders of synovium, tendon, and bursa(7 27.89) 01/08/2005 05/30/2015 Abdominal pain, right upper quadrant 02/01/2012 Unspecified constipation 012 Diverticulosis of colon (without mention of hemo rrhage) 05/30/2015 Hemorrhage of rectum and anus documented as of this encounter (statuses as of 03/09/2022) [facility] History of Past illness Narrative* Problem Noted Date Resolved Date OA (osteoarthritis) of knee 06/04/201706/2017 Chronic pain of right knee 05/20/201707/04 Primary osteoarthritis of left knee 05/10/2017 06/05/2017 Overview: Added automatically from request for surgery [id number] Abdominal pain 11/01/2016 05/20/2017 Cystitis 11/01/2016 05/20/2017 Skin tear of lower leg without complication 05/0309/19/2016 Carpal tunnel syndrome 11/19/2011 7 Acute tracheobronchitis 03/07/2011 02/01/20 12 Cough 07/23/2008 02/01/2012 Ganglion of joint 07/16/2005 09/19/2016 Other disorders of synovium, tendon, and bursa(7 27.89) 01/08/2005 05/30/2015 Abdominal pain, right upper quadrant 02/01/2012 Unspecified constipation 012 Diverticulosis of colon (without mention of hemo rrhage) 05/30/2015 Hemorrhage of rectum and anus documented as of this encounter (statuses as of 03/22/2022) [facility] History of Past illness Narrative* Problem Noted Date Resolved Date OA (osteoarthritis) of knee 06/04/20170 06/2017 Chronic pain of right knee 05/20/201707/04 Primary osteoarthritis of left knee 05/10/2017 06/05/2017 Overview: Added automatically from request for surgery [id number] Abdominal pain 11/01/2016 05/20/2017 Cystitis 11/01/2016 05/20/2017 Skin tear of lower leg without complication 05/0309/19/2016 Carpal tunnel syndrome 11/19/2011 7 Acute tracheobronchitis 03/07/2011 02/01/20 12 Cough 07/23/2008 02/01/2012 Ganglion of joint 07/16/2005 09/19/2016 Other disorders of synovium, tendon, and bursa(7 27.89) 01/08/2005 05/30/2015 Abdominal pain, right upper quadrant 02/01/2012 Unspecified constipation 012 Diverticulosis of colon (without mention of hemo rrhage) 05/30/2015 Hemorrhage of rectum and anus documented as of this encounter (statuses as of 04/05/2022) [facility] History of Past illness Narrative* Problem Noted Date Resolved Date OA (osteoarthritis) of knee 06/04/2017 04/0 06/2017 Chronic pain of right knee 05/20/201707/04 Primary osteoarthritis of left knee 05/10/2017 06/05/2017 Overview: Added automatically from request for surgery [id number] Abdominal pain 11/01/2016 05/20/2017 Cystitis 11/01/2016 05/20/2017 Skin tear of lower leg without complication 05/0309/19/2016 Carpal tunnel syndrome 11/19/2011 7 Acute tracheobronchitis 03/07/2011 02/01/20 12 Cough 07/23/2008 02/01/2012 Ganglion of joint 07/16/2005 09/19/2016 Other disorders of synovium, tendon, and bursa(7 27.89) 01/08/2005 05/30/2015 Abdominal pain, right upper quadrant 02/01/2012 Unspecified constipation 012 Diverticulosis of colon (without mention of hemo rrhage) 05/30/2015 Hemorrhage of rectum and anus documented as of this encounter (statuses as of 04/07/2022) [facility] History of Past illness Narrative* Problem Noted Date Resolved Date OA (osteoarthritis) of knee 06/04/2017/0 06/2017 Chronic pain of right knee 05/20/201707/04 Primary osteoarthritis of left knee 05/10/2017 06/05/2017 Overview: Added automatically from request for surgery [id number] Abdominal pain 11/01/2016 05/20/2017 Cystitis 11/01/2016 05/20/2017 Skin tear of lower leg without complication 05/0309/19/2016 Carpal tunnel syndrome 11/19/2011 7 Acute tracheobronchitis 03/07/2011 02/01/20 12 Cough 07/23/2008 02/01/2012 Ganglion of joint 07/16/2005 09/19/2016 Other disorders of synovium, tendon, and bursa(7 27.89) 01/08/2005 05/30/2015 Abdominal pain, right upper quadrant 02/01/2012 Unspecified constipation 012 Diverticulosis of colon (without mention of hemo rrhage) 05/30/2015 Hemorrhage of rectum and anus documented as of this encounter (statuses as of 04/09/2022) [facility] History of Past illness Narrative* Problem Noted Date Resolved Date OA (osteoarthritis) of knee 06/04/20170 06/2017 Chronic pain of right knee 05/20/201707/04 Primary osteoarthritis of left knee 05/10/2017 06/05/2017 Overview: Added automatically from request for surgery [id number] Abdominal pain 11/01/2016 05/20/2017 Cystitis 11/01/2016 05/20/2017 Skin tear of lower leg without complication 05/0309/19/2016 Carpal tunnel syndrome 11/19/2011 7 Acute tracheobronchitis 03/07/2011 02/01/20 12 Cough 07/23/2008 02/01/2012 Ganglion of joint 07/16/2005 09/19/2016 Other disorders of synovium, tendon, and bursa(7 27.89) 01/08/2005 05/30/2015 Abdominal pain, right upper quadrant 02/01/2012 Unspecified constipation 012 Diverticulosis of colon (without mention of hemo rrhage) 05/30/2015 Hemorrhage of rectum and anus documented as of this encounter (statuses as of 04/12/2022) [facility] History of Past illness Narrative* Problem Noted Date Resolved Date OA (osteoarthritis) of knee 06/04/2017 040 06/2017 Chronic pain of right knee 05/20/201707/04 Primary osteoarthritis of left knee 05/10/2017 06/05/2017 Overview: Added automatically from request for surgery [id number] Abdominal pain 11/01/2016 05/20/2017 Cystitis 11/01/2016 05/20/2017 Skin tear of lower leg without complication 05/0309/19/2016 Carpal tunnel syndrome 11/19/2011 7 Acute tracheobronchitis 03/07/2011 02/01/20 12 Cough 07/23/2008 02/01/2012 Ganglion of joint 07/16/2005 09/19/2016 Other disorders of synovium, tendon, and bursa(7 27.89) 01/08/2005 05/30/2015 Abdominal pain, right upper quadrant 02/01/2012 Unspecified constipation 012 Diverticulosis of colon (without mention of hemo rrhage) 05/30/2015 Hemorrhage of rectum and anus documented as of this encounter (statuses as of 04/16/2022) [facility]04-03-2018 History of Past illness Narrative* Problem Noted Date Resolved Date OA (osteoarthritis) of knee 06/04/2017 040 06/2017 Chronic pain of right knee 05/20/201707/04 Primary osteoarthritis of left knee 05/10/2017 06/05/2017 Overview: Added automatically from request for surgery [id number] Abdominal pain 11/01/2016 05/20/2017 Cystitis 11/01/2016 05/20/2017 Skin tear of lower leg without complication 05/0309/19/2016 Carpal tunnel syndrome 11/19/2011 7 Acute tracheobronchitis 03/07/2011 02/01/20 12 Cough 07/23/2008 02/01/2012 Ganglion of joint 07/16/2005 09/19/2016 Other disorders of synovium, tendon, and bursa(7 27.89) 01/08/2005 05/30/2015 Abdominal pain, right upper quadrant 02/01/2012 Unspecified constipation 012 Diverticulosis of colon (without mention of hemo rrhage) 05/30/2015 Hemorrhage of rectum and anus documented as of this encounter (statuses as of 04/17/2022) [facility]2018 History of Past illness Narrative* Problem Noted Date Resolved Date OA (osteoarthritis) of knee 06/04/20170 06/2017 Chronic pain of right knee 05/20/201707/04 Primary osteoarthritis of left knee 05/10/2017 06/05/2017 Overview: Added automatically from request for surgery [id number] Abdominal pain 11/01/2016 05/20/2017 Cystitis 11/01/2016 05/20/2017 Skin tear of lower leg without complication 05/0309/19/2016 Carpal tunnel syndrome 11/19/2011 7 Acute tracheobronchitis 03/07/2011 02/01/20 12 Cough 07/23/2008 02/01/2012 Ganglion of joint 07/16/2005 09/19/2016 Other disorders of synovium, tendon, and bursa(7 27.89) 01/08/2005 05/30/2015 Abdominal pain, right upper quadrant 02/01/2012 Unspecified constipation 012 Diverticulosis of colon (without mention of hemo rrhage) 05/30/2015 Hemorrhage of rectum and anus documented as of this encounter (statuses as of 04/17/2022) [facility]2018 History of Past illness Narrative* Problem Noted Date Resolved Date OA (osteoarthritis) of knee 06/04/20170 06/2017 Chronic pain of right knee 05/20/201707/04 Primary osteoarthritis of left knee 05/10/2017 06/05/2017 Overview: Added automatically from request for surgery [id number] Abdominal pain 11/01/2016 05/20/2017 Cystitis 11/01/2016 05/20/2017 Skin tear of lower leg without complication 05/0309/19/2016 Carpal tunnel syndrome 11/19/2011 7 Acute tracheobronchitis 03/07/2011 02/01/20 12 Cough 07/23/2008 02/01/2012 Ganglion of joint 07/16/2005 09/19/2016 Other disorders of synovium, tendon, and bursa(7 27.89) 01/08/2005 05/30/2015 Abdominal pain, right upper quadrant 02/01/2012 Unspecified constipation 012 Diverticulosis of colon (without mention of hemo rrhage) 05/30/2015 Hemorrhage of rectum and anus documented as of this encounter (statuses as of 04/19/2022) [facility] History of Past illness Narrative* Problem Noted Date Resolved Date OA (osteoarthritis) of knee 06/04/201706/2017 Chronic pain of right knee 05/20/201707/04 Primary osteoarthritis of left knee 05/10/2017 06/05/2017 Overview: Added automatically from request for surgery [id number] Abdominal pain 11/01/2016 05/20/2017 Cystitis 11/01/2016 05/20/2017 Skin tear of lower leg without complication 05/0309/19/2016 Carpal tunnel syndrome 11/19/2011 7 Acute tracheobronchitis 03/07/2011 02/01/20 12 Cough 07/23/2008 02/01/2012 Ganglion of joint 07/16/2005 09/19/2016 Other disorders of synovium, tendon, and bursa(7 27.89) 01/08/2005 05/30/2015 Abdominal pain, right upper quadrant 02/01/2012 Unspecified constipation 012 Diverticulosis of colon (without mention of hemo rrhage) 05/30/2015 Hemorrhage of rectum and anus documented as of this encounter (statuses as of 04/20/2022) [facility] History of Past illness Narrative* Problem Noted Date Resolved Date OA (osteoarthritis) of knee 06/04/201706/2017 Chronic pain of right knee 05/20/201707/04 Primary osteoarthritis of left knee 05/10/2017 06/05/2017 Overview: Added automatically from request for surgery [id number] Abdominal pain 11/01/2016 05/20/2017 Cystitis 11/01/2016 05/20/2017 Skin tear of lower leg without complication 05/0309/19/2016 Carpal tunnel syndrome 11/19/2011 7 Acute tracheobronchitis 03/07/2011 02/01/20 12 Cough 07/23/2008 02/01/2012 Ganglion of joint 07/16/2005 09/19/2016 Other disorders of synovium, tendon, and bursa(7 27.89) 01/08/2005 05/30/2015 Abdominal pain, right upper quadrant 02/01/2012 Unspecified constipation 012 Diverticulosis of colon (without mention of hemo rrhage) 05/30/2015 Hemorrhage of rectum and anus documented as of this encounter (statuses as of 04/25/2022) [facility] History of Past illness Narrative* Problem Noted Date Resolved Date OA (osteoarthritis) of knee 06/04/201706/2017 Chronic pain of right knee 05/20/201707/04 Primary osteoarthritis of left knee 05/10/2017 06/05/2017 Overview: Added automatically from request for surgery [id number] Abdominal pain 11/01/2016 05/20/2017 Cystitis 11/01/2016 05/20/2017 Skin tear of lower leg without complication 05/0309/19/2016 Carpal tunnel syndrome 11/19/2011 7 Acute tracheobronchitis 03/07/2011 02/01/20 12 Cough 07/23/2008 02/01/2012 Ganglion of joint 07/16/2005 09/19/2016 Other disorders of synovium, tendon, and bursa(7 27.89) 01/08/2005 05/30/2015 Abdominal pain, right upper quadrant 02/01/2012 Unspecified constipation 012 Diverticulosis of colon (without mention of hemo rrhage) 05/30/2015 Hemorrhage of rectum and anus documented as of this encounter (statuses as of 04/25/2022) [facility] History of Past illness Narrative* Problem Noted Date Resolved Date OA (osteoarthritis) of knee 06/04/2017 040 06/2017 Chronic pain of right knee 05/20/201707/04 Primary osteoarthritis of left knee 05/10/2017 06/05/2017 Overview: Added automatically from request for surgery [id number] Abdominal pain 11/01/2016 05/20/2017 Cystitis 11/01/2016 05/20/2017 Skin tear of lower leg without complication 05/0309/19/2016 Carpal tunnel syndrome 11/19/2011 7 Acute tracheobronchitis 03/07/2011 02/01/20 12 Cough 07/23/2008 02/01/2012 Ganglion of joint 07/16/2005 09/19/2016 Other disorders of synovium, tendon, and bursa(7 27.89) 01/08/2005 05/30/2015 Abdominal pain, right upper quadrant 02/01/2012 Unspecified constipation 012 Diverticulosis of colon (without mention of hemo rrhage) 05/30/2015 Hemorrhage of rectum and anus documented as of this encounter (statuses as of 04/27/2022) [facility] History of Past illness Narrative* Problem Noted Date Resolved Date OA (osteoarthritis) of knee 06/04/20170 06/2017 Chronic pain of right knee 05/20/201707/04 Primary osteoarthritis of left knee 05/10/2017 06/05/2017 Overview: Added automatically from request for surgery [id number] Abdominal pain 11/01/2016 05/20/2017 Cystitis 11/01/2016 05/20/2017 Skin tear of lower leg without complication 05/0309/19/2016 Carpal tunnel syndrome 11/19/2011 7 Acute tracheobronchitis 03/07/2011 02/01/20 12 Cough 07/23/2008 02/01/2012 Ganglion of joint 07/16/2005 09/19/2016 Other disorders of synovium, tendon, and bursa(7 27.89) 01/08/2005 05/30/2015 Abdominal pain, right upper quadrant 02/01/2012 Unspecified constipation 012 Diverticulosis of colon (without mention of hemo rrhage) 05/30/2015 Hemorrhage of rectum and anus documented as of this encounter (statuses as of 05/03/2022) [facility]2018 History of Past illness Narrative* Problem Noted Date Resolved Date OA (osteoarthritis) of knee 06/04/20170 06/2017 Chronic pain of right knee 05/20/201707/04 Primary osteoarthritis of left knee 05/10/2017 06/05/2017 Overview: Added automatically from request for surgery [id number] Abdominal pain 11/01/2016 05/20/2017 Cystitis 11/01/2016 05/20/2017 Skin tear of lower leg without complication 05/0309/19/2016 Carpal tunnel syndrome 11/19/2011 7 Acute tracheobronchitis 03/07/2011 02/01/20 12 Cough 07/23/2008 02/01/2012 Ganglion of joint 07/16/2005 09/19/2016 Other disorders of synovium, tendon, and bursa(7 27.89) 01/08/2005 05/30/2015 Abdominal pain, right upper quadrant 02/01/2012 Unspecified constipation 012 Diverticulosis of colon (without mention of hemo rrhage) 05/30/2015 Hemorrhage of rectum and anus documented as of this encounter (statuses as of 05/08/2022) [facility]2018 History of Past illness Narrative* Problem Noted Date Resolved Date OA (osteoarthritis) of knee 06/04/20170 06/2017 Chronic pain of right knee 05/20/201707/04 Primary osteoarthritis of left knee 05/10/2017 06/05/2017 Overview: Added automatically from request for surgery [id number] Abdominal pain 11/01/2016 05/20/2017 Cystitis 11/01/2016 05/20/2017 Skin tear of lower leg without complication 05/0309/19/2016 Carpal tunnel syndrome 11/19/2011 7 Acute tracheobronchitis 03/07/2011 02/01/20 12 Cough 07/23/2008 02/01/2012 Ganglion of joint 07/16/2005 09/19/2016 Other disorders of synovium, tendon, and bursa(7 27.89) 01/08/2005 05/30/2015 Abdominal pain, right upper quadrant 02/01/2012 Unspecified constipation 012 Diverticulosis of colon (without mention of hemo rrhage) 05/30/2015 Hemorrhage of rectum and anus documented as of this encounter (statuses as of 05/08/2022) [facility]2018 History of Past illness Narrative* Problem Noted Date Resolved Date OA (osteoarthritis) of knee 06/04/201706/2017 Chronic pain of right knee 05/20/201707/04 Primary osteoarthritis of left knee 05/10/2017 06/05/2017 Overview: Added automatically from request for surgery [id number] Abdominal pain 11/01/2016 05/20/2017 Cystitis 11/01/2016 05/20/2017 Skin tear of lower leg without complication 05/0309/19/2016 Carpal tunnel syndrome 11/19/2011 7 Acute tracheobronchitis 03/07/2011 02/01/20 12 Cough 07/23/2008 02/01/2012 Ganglion of joint 07/16/2005 09/19/2016 Other disorders of synovium, tendon, and bursa(7 27.89) 01/08/2005 05/30/2015 Abdominal pain, right upper quadrant 02/01/2012 Unspecified constipation 012 Diverticulosis of colon (without mention of hemo rrhage) 05/30/2015 Hemorrhage of rectum and anus documented as of this encounter (statuses as of 05/13/2022) [facility]2018 History of Past illness Narrative* Problem Noted Date Resolved Date OA (osteoarthritis) of knee 06/04/201706/2017 Chronic pain of right knee 05/20/201707/04 Primary osteoarthritis of left knee 05/10/2017 06/05/2017 Overview: Added automatically from request for surgery [id number] Abdominal pain 11/01/2016 05/20/2017 Cystitis 11/01/2016 05/20/2017 Skin tear of lower leg without complication 05/0309/19/2016 Carpal tunnel syndrome 11/19/2011 7 Acute tracheobronchitis 03/07/2011 02/01/20 12 Cough 07/23/2008 02/01/2012 Ganglion of joint 07/16/2005 09/19/2016 Other disorders of synovium, tendon, and bursa(7 27.89) 01/08/2005 05/30/2015 Abdominal pain, right upper quadrant 02/01/2012 Unspecified constipation 012 Diverticulosis of colon (without mention of hemo rrhage) 05/30/2015 Hemorrhage of rectum and anus documented as of this encounter (statuses as of 05/20/2022) [facility] History of Past illness Narrative* Problem Noted Date Resolved Date OA (osteoarthritis) of knee 06/04/2017 04/0 06/2017 Chronic pain of right knee 05/20/201707/04 Primary osteoarthritis of left knee 05/10/2017 06/05/2017 Overview: Added automatically from request for surgery [id number] Abdominal pain 11/01/2016 05/20/2017 Cystitis 11/01/2016 05/20/2017 Skin tear of lower leg without complication 05/0309/19/2016 Carpal tunnel syndrome 11/19/2011 7 Acute tracheobronchitis 03/07/2011 02/01/20 12 Cough 07/23/2008 02/01/2012 Ganglion of joint 07/16/2005 09/19/2016 Other disorders of synovium, tendon, and bursa(7 27.89) 01/08/2005 05/30/2015 Abdominal pain, right upper quadrant 02/01/2012 Unspecified constipation 012 Diverticulosis of colon (without mention of hemo rrhage) 05/30/2015 Hemorrhage of rectum and anus documented as of this encounter (statuses as of 05/22/2022) [facility]2018 History of Past illness Narrative* Problem Noted Date Resolved Date OA (osteoarthritis) of knee 06/04/2017 04/0 06/2017 Chronic pain of right knee 05/20/201707/04 Primary osteoarthritis of left knee 05/10/2017 06/05/2017 Overview: Added automatically from request for surgery [id number] Abdominal pain 11/01/2016 05/20/2017 Cystitis 11/01/2016 05/20/2017 Skin tear of lower leg without complication 05/0309/19/2016 Carpal tunnel syndrome 11/19/2011 7 Acute tracheobronchitis 03/07/2011 02/01/20 12 Cough 07/23/2008 02/01/2012 Ganglion of joint 07/16/2005 09/19/2016 Other disorders of synovium, tendon, and bursa(7 27.89) 01/08/2005 05/30/2015 Abdominal pain, right upper quadrant 02/01/2012 Unspecified constipation 012 Diverticulosis of colon (without mention of hemo rrhage) 05/30/2015 Hemorrhage of rectum and anus documented as of this encounter (statuses as of 05/23/2022) [facility]2018 History of Past illness Narrative* Problem Noted Date Resolved Date OA (osteoarthritis) of knee 06/04/20170 06/2017 Chronic pain of right knee 05/20/201707/04 Primary osteoarthritis of left knee 05/10/2017 06/05/2017 Overview: Added automatically from request for surgery [id number] Abdominal pain 11/01/2016 05/20/2017 Cystitis 11/01/2016 05/20/2017 Skin tear of lower leg without complication 05/0309/19/2016 Carpal tunnel syndrome 11/19/2011 7 Acute tracheobronchitis 03/07/2011 02/01/20 12 Cough 07/23/2008 02/01/2012 Ganglion of joint 07/16/2005 09/19/2016 Other disorders of synovium, tendon, and bursa(7 27.89) 01/08/2005 05/30/2015 Abdominal pain, right upper quadrant 02/01/2012 Unspecified constipation 012 Diverticulosis of colon (without mention of hemo rrhage) 05/30/2015 Hemorrhage of rectum and anus documented as of this encounter (statuses as of 06/11/2022) [facility] History of Past illness Narrative* Problem Noted Date Resolved Date OA (osteoarthritis) of knee 06/04/2017 040 06/2017 Chronic pain of right knee 05/20/201707/04 Primary osteoarthritis of left knee 05/10/2017 06/05/2017 Overview: Added automatically from request for surgery [id number] Abdominal pain 11/01/2016 05/20/2017 Cystitis 11/01/2016 05/20/2017 Skin tear of lower leg without complication 05/0309/19/2016 Carpal tunnel syndrome 11/19/2011 7 Acute tracheobronchitis 03/07/2011 02/01/20 12 Cough 07/23/2008 02/01/2012 Ganglion of joint 07/16/2005 09/19/2016 Other disorders of synovium, tendon, and bursa(7 27.89) 01/08/2005 05/30/2015 Abdominal pain, right upper quadrant 02/01/2012 Unspecified constipation 012 Diverticulosis of colon (without mention of hemo rrhage) 05/30/2015 Hemorrhage of rectum and anus documented as of this encounter (statuses as of 06/16/2022) [facility]2018 History of Past illness Narrative* Problem Noted Date Resolved Date OA (osteoarthritis) of knee 06/04/20170 06/2017 Chronic pain of right knee 05/20/201707/04 Primary osteoarthritis of left knee 05/10/2017 06/05/2017 Overview: Added automatically from request for surgery [id number] Abdominal pain 11/01/2016 05/20/2017 Cystitis 11/01/2016 05/20/2017 Skin tear of lower leg without complication 05/0309/19/2016 Carpal tunnel syndrome 11/19/2011 7 Acute tracheobronchitis 03/07/2011 02/01/20 12 Cough 07/23/2008 02/01/2012 Ganglion of joint 07/16/2005 09/19/2016 Other disorders of synovium, tendon, and bursa(7 27.89) 01/08/2005 05/30/2015 Abdominal pain, right upper quadrant 02/01/2012 Unspecified constipation 012 Diverticulosis of colon (without mention of hemo rrhage) 05/30/2015 Hemorrhage of rectum and anus documented as of this encounter (statuses as of 06/22/2022) [facility] History of Past illness Narrative* Problem Noted Date Resolved Date OA (osteoarthritis) of knee 06/04/201706/2017 Chronic pain of right knee 05/20/201707/04 Primary osteoarthritis of left knee 05/10/2017 06/05/2017 Overview: Added automatically from request for surgery [id number] Abdominal pain 11/01/2016 05/20/2017 Cystitis 11/01/2016 05/20/2017 Skin tear of lower leg without complication 05/0309/19/2016 Carpal tunnel syndrome 11/19/2011 7 Acute tracheobronchitis 03/07/2011 02/01/20 12 Cough 07/23/2008 02/01/2012 Ganglion of joint 07/16/2005 09/19/2016 Other disorders of synovium, tendon, and bursa(7 27.89) 01/08/2005 05/30/2015 Abdominal pain, right upper quadrant 02/01/2012 Unspecified constipation 012 Diverticulosis of colon (without mention of hemo rrhage) 05/30/2015 Hemorrhage of rectum and anus documented as of this encounter (statuses as of 06/28/2022) [facility] History of Past illness Narrative* Problem Noted Date Resolved Date OA (osteoarthritis) of knee 06/04/201706/2017 Chronic pain of right knee 05/20/201707/04 Primary osteoarthritis of left knee 05/10/2017 06/05/2017 Overview: Added automatically from request for surgery [id number] Abdominal pain 11/01/2016 05/20/2017 Cystitis 11/01/2016 05/20/2017 Skin tear of lower leg without complication 05/0309/19/2016 Carpal tunnel syndrome 11/19/2011 7 Acute tracheobronchitis 03/07/2011 02/01/20 12 Cough 07/23/2008 02/01/2012 Ganglion of joint 07/16/2005 09/19/2016 Other disorders of synovium, tendon, and bursa(7 27.89) 01/08/2005 05/30/2015 Abdominal pain, right upper quadrant 02/01/2012 Unspecified constipation 012 Diverticulosis of colon (without mention of hemo rrhage) 05/30/2015 Hemorrhage of rectum and anus documented as of this encounter (statuses as of 07/03/2022) [facility] History of Past illness Narrative* Problem Noted Date Resolved Date OA (osteoarthritis) of knee 06/04/201706/2017 Chronic pain of right knee 05/20/201707/04 Primary osteoarthritis of left knee 05/10/2017 06/05/2017 Overview: Added automatically from request for surgery [id number] Abdominal pain 11/01/2016 05/20/2017 Cystitis 11/01/2016 05/20/2017 Skin tear of lower leg without complication 05/0309/19/2016 Carpal tunnel syndrome 11/19/2011 7 Acute tracheobronchitis 03/07/2011 02/01/20 12 Cough 07/23/2008 02/01/2012 Ganglion of joint 07/16/2005 09/19/2016 Other disorders of synovium, tendon, and bursa(7 27.89) 01/08/2005 05/30/2015 Abdominal pain, right upper quadrant 02/01/2012 Unspecified constipation 012 Diverticulosis of colon (without mention of hemo rrhage) 05/30/2015 Hemorrhage of rectum and anus documented as of this encounter (statuses as of 07/11/2022) [facility] History of Past illness Narrative* Problem Noted Date Resolved Date OA (osteoarthritis) of knee 06/04/201706/2017 Chronic pain of right knee 05/20/201707/04 Primary osteoarthritis of left knee 05/10/2017 06/05/2017 Overview: Added automatically from request for surgery [id number] Abdominal pain 11/01/2016 05/20/2017 Cystitis 11/01/2016 05/20/2017 Skin tear of lower leg without complication 05/0309/19/2016 Carpal tunnel syndrome 11/19/2011 7 Acute tracheobronchitis 03/07/2011 02/01/20 12 Cough 07/23/2008 02/01/2012 Ganglion of joint 07/16/2005 09/19/2016 Other disorders of synovium, tendon, and bursa(7 27.89) 01/08/2005 05/30/2015 Abdominal pain, right upper quadrant 02/01/2012 Unspecified constipation 012 Diverticulosis of colon (without mention of hemo rrhage) 05/30/2015 Hemorrhage of rectum and anus documented as of this encounter (statuses as of 07/14/2022) [facility] History of Past illness Narrative* Problem Noted Date Resolved Date OA (osteoarthritis) of knee 06/04/2017 04/06/2017 Chronic pain of right knee 05/20/201707/04 Primary osteoarthritis of left knee 05/10/2017 06/05/2017 Overview: Added automatically from request for surgery [id number] Abdominal pain 11/01/2016 05/20/2017 Cystitis 11/01/2016 05/20/2017 Skin tear of lower leg without complication 05/0309/19/2016 Carpal tunnel syndrome 11/19/2011 7 Acute tracheobronchitis 03/07/2011 02/01/20 12 Cough 07/23/2008 02/01/2012 Ganglion of joint 07/16/2005 09/19/2016 Other disorders of synovium, tendon, and bursa(7 27.89) 01/08/2005 05/30/2015 Abdominal pain, right upper quadrant 02/01/2012 Unspecified constipation 012 Diverticulosis of colon (without mention of hemo rrhage) 05/30/2015 Hemorrhage of rectum and anus documented as of this encounter (statuses as of 08/01/2022) [facility] History of Past illness Narrative* Problem Noted Date Resolved Date OA (osteoarthritis) of knee 06/04/20170 06/2017 Chronic pain of right knee 05/20/201707/04 Primary osteoarthritis of left knee 05/10/2017 06/05/2017 Overview: Added automatically from request for surgery [id number] Abdominal pain 11/01/2016 05/20/2017 Cystitis 11/01/2016 05/20/2017 Skin tear of lower leg without complication 05/0309/19/2016 Carpal tunnel syndrome 11/19/2011 7 Acute tracheobronchitis 03/07/2011 02/01/20 12 Cough 07/23/2008 02/01/2012 Ganglion of joint 07/16/2005 09/19/2016 Other disorders of synovium, tendon, and bursa(7 27.89) 01/08/2005 05/30/2015 Abdominal pain, right upper quadrant 02/01/2012 Unspecified constipation 012 Diverticulosis of colon (without mention of hemo rrhage) 05/30/2015 Hemorrhage of rectum and anus documented as of this encounter (statuses as of 08/16/2022) [facility] History of Past illness Narrative* Problem Noted Date Resolved Date OA (osteoarthritis) of knee 06/04/20170 06/2017 Chronic pain of right knee 05/20/201707/04 Primary osteoarthritis of left knee 05/10/2017 06/05/2017 Overview: Added automatically from request for surgery [id number] Abdominal pain 11/01/2016 05/20/2017 Cystitis 11/01/2016 05/20/2017 Skin tear of lower leg without complication 05/0309/19/2016 Carpal tunnel syndrome 11/19/2011 7 Acute tracheobronchitis 03/07/2011 02/01/20 12 Cough 07/23/2008 02/01/2012 Ganglion of joint 07/16/2005 09/19/2016 Other disorders of synovium, tendon, and bursa(7 27.89) 01/08/2005 05/30/2015 Abdominal pain, right upper quadrant 02/01/2012 Unspecified constipation 012 Diverticulosis of colon (without mention of hemo rrhage) 05/30/2015 Hemorrhage of rectum and anus documented as of this encounter (statuses as of 08/31/2022) [facility] History of Past illness Narrative* Problem Noted Date Resolved Date OA (osteoarthritis) of knee 06/04/2017 04/0 06/2017 Chronic pain of right knee 05/20/201707/04 Primary osteoarthritis of left knee 05/10/2017 06/05/2017 Overview: Added automatically from request for surgery [id number] Abdominal pain 11/01/2016 05/20/2017 Cystitis 11/01/2016 05/20/2017 Skin tear of lower leg without complication 05/0309/19/2016 Carpal tunnel syndrome 11/19/2011 7 Acute tracheobronchitis 03/07/2011 02/01/20 12 Cough 07/23/2008 02/01/2012 Ganglion of joint 07/16/2005 09/19/2016 Other disorders of synovium, tendon, and bursa(7 27.89) 01/08/2005 05/30/2015 Abdominal pain, right upper quadrant 02/01/2012 Unspecified constipation 012 Diverticulosis of colon (without mention of hemo rrhage) 05/30/2015 Hemorrhage of rectum and anus documented as of this encounter (statuses as of 09/05/2022) [facility] History of Past illness Narrative* Problem Noted Date Diagnosed Date Resolved Date OA (osteoarthritis) of knee 06/04/2017 06/05/2017 Chronic pain of right knee 05/20/2017 0 07/04/2017 Primary osteoarthritis of left knee 05/10/2017 06/05/2017 Overview: Added automatically from request for surgery [id number] Abdominal pain 11/01/2016 05/20/2017 Cystitis 11/01/2016 05/20/2017 Skin tear of lower leg without complication 05/23/2016 09/19/2016 Carpal tunnel syndrome 11/19/201109/19 Acute tracheobronchitis 03/07/201101/04 Cough 07/23/2008 02/01/2012 Ganglion of joint 07/16/2005 09/19/2016 Other disorders of synovium, tendon, and bursa(727.89) 01/08/2005 05/30/2015 Abdominal pain, right upper quadrant 02/01/2012 Unspecified constipation Diverticulosis of colon (wit hout mention of hemorrhage) 05/30/2015 Hemorrhage of rectum and anus 09/19/2016 documented as of this encounter (statuses as of 09/20/2022) [facility]04-03-2018 History of Past illness Narrative* Problem Noted Date Diagnosed Date Resolved Date OA (osteoarthritis) of knee 06/04/2017 06/05/2017 Chronic pain of right knee 05/20/2017 0 07/04/2017 Primary osteoarthritis of left knee 05/10/2017 06/05/2017 Overview: Added automatically from request for surgery [id number] Abdominal pain 11/01/2016 05/20/2017 Cystitis 11/01/2016 05/20/2017 Skin tear of lower leg without complication 05/23/2016 09/19/2016 Carpal tunnel syndrome 11/19/201109/19 Acute tracheobronchitis 03/07/201101/04 Cough 07/23/2008 02/01/2012 Ganglion of joint 07/16/2005 09/19/2016 Other disorders of synovium, tendon, and bursa(727.89) 01/08/2005 05/30/2015 Abdominal pain, right upper quadrant 02/01/2012 Unspecified constipation Diverticulosis of colon (wit hout mention of hemorrhage) 05/30/2015 Hemorrhage of rectum and anus 09/19/2016 documented as of this encounter (statuses as of 09/20/2022) [facility]04-[facility]2018 History of Past illness Narrative* Problem Noted Date Diagnosed Date Resolved Date OA (osteoarthritis) of knee 06/04/2017 06/05/2017 Chronic pain of right knee 05/20/2017 0 07/04/2017 Primary osteoarthritis of left knee 05/10/2017 06/05/2017 Overview: Added automatically from request for surgery [id number] Abdominal pain 11/01/2016 05/20/2017 Cystitis 11/01/2016 05/20/2017 Skin tear of lower leg without complication 05/23/2016 09/19/2016 Carpal tunnel syndrome 11/19/201109/19 Acute tracheobronchitis 03/07/201101/04 Cough 07/23/2008 02/01/2012 Ganglion of joint 07/16/2005 09/19/2016 Other disorders of synovium, tendon, and bursa(727.89) 01/08/2005 05/30/2015 Abdominal pain, right upper quadrant 02/01/2012 Unspecified constipation Diverticulosis of colon (wit hout mention of hemorrhage) 05/30/2015 Hemorrhage of rectum and anus 09/19/2016 documented as of this encounter (statuses as of 09/28/2022) [facility]2018 History of Past illness Narrative* Problem Noted Date Diagnosed Date Resolved Date OA (osteoarthritis) of knee 06/04/2017 06/05/2017 Chronic pain of right knee 05/20/2017 0 07/04/2017 Primary osteoarthritis of left knee 05/10/2017 06/05/2017 Overview: Added automatically from request for surgery [id number] Abdominal pain 11/01/2016 05/20/2017 Cystitis 11/01/2016 05/20/2017 Skin tear of lower leg without complication 05/23/2016 09/19/2016 Carpal tunnel syndrome 11/19/201109/19 Acute tracheobronchitis 03/07/201101/04 Cough 07/23/2008 02/01/2012 Ganglion of joint 07/16/2005 09/19/2016 Other disorders of synovium, tendon, and bursa(727.89) 01/08/2005 05/30/2015 Abdominal pain, right upper quadrant 02/01/2012 Unspecified constipation Diverticulosis of colon (wit hout mention of hemorrhage) 05/30/2015 Hemorrhage of rectum and anus 09/19/2016 documented as of this encounter (statuses as of 10/06/2022) [facility] History of Past illness Narrative* Problem Noted Date Diagnosed Date Resolved Date OA (osteoarthritis) of knee 06/04/2017 06/05/2017 Chronic pain of right knee 05/20/2017 0 07/04/2017 Primary osteoarthritis of left knee 05/10/2017 06/05/2017 Overview: Added automatically from request for surgery [id number] Abdominal pain 11/01/2016 05/20/2017 Cystitis 11/01/2016 05/20/2017 Skin tear of lower leg without complication 05/23/2016 09/19/2016 Carpal tunnel syndrome 11/19/201109/19 Acute tracheobronchitis 03/07/201101/04 Cough 07/23/2008 02/01/2012 Ganglion of joint 07/16/2005 09/19/2016 Other disorders of synovium, tendon, and bursa(727.89) 01/08/2005 05/30/2015 Abdominal pain, right upper quadrant 02/01/2012 Unspecified constipation Diverticulosis of colon (wit hout mention of hemorrhage) 05/30/2015 Hemorrhage of rectum and anus 09/19/2016 documented as of this encounter (statuses as of 10/12/2022) [facility]04[facility]2018 History of Past illness Narrative* Problem Noted Date Diagnosed Date Resolved Date OA (osteoarthritis) of knee 06/04/2017 06/05/2017 Chronic pain of right knee 05/20/2017 0 07/04/2017 Primary osteoarthritis of left knee 05/10/2017 06/05/2017 Overview: Added automatically from request for surgery [id number] Abdominal pain 11/01/2016 05/20/2017 Cystitis 11/01/2016 05/20/2017 Skin tear of lower leg without complication 05/23/2016 09/19/2016 Carpal tunnel syndrome 11/19/201109/19 Acute tracheobronchitis 03/07/201101/04 Cough 07/23/2008 02/01/2012 Ganglion of joint 07/16/2005 09/19/2016 Other disorders of synovium, tendon, and bursa(727.89) 01/08/2005 05/30/2015 Abdominal pain, right upper quadrant 02/01/2012 Unspecified constipation Diverticulosis of colon (wit hout mention of hemorrhage) 05/30/2015 Hemorrhage of rectum and anus 09/19/2016 documented as of this encounter (statuses as of 10/13/2022) [facility]2018 History of Past illness Narrative* Problem Noted Date Diagnosed Date Resolved Date OA (osteoarthritis) of knee 06/04/2017 06/05/2017 Chronic pain of right knee 05/20/2017 0 07/04/2017 Primary osteoarthritis of left knee 05/10/2017 06/05/2017 Overview: Added automatically from request for surgery [id number] Abdominal pain 11/01/2016 05/20/2017 Cystitis 11/01/2016 05/20/2017 Skin tear of lower leg without complication 05/23/2016 09/19/2016 Carpal tunnel syndrome 11/19/201109/19 Acute tracheobronchitis 03/07/201101/04 Cough 07/23/2008 02/01/2012 Ganglion of joint 07/16/2005 09/19/2016 Other disorders of synovium, tendon, and bursa(727.89) 01/08/2005 05/30/2015 Abdominal pain, right upper quadrant 02/01/2012 Unspecified constipation Diverticulosis of colon (wit hout mention of hemorrhage) 05/30/2015 Hemorrhage of rectum and anus 09/19/2016 documented as of this encounter (statuses as of 11/08/2022) [facility]2018 History of Past illness Narrative* Problem Noted Date Diagnosed Date Resolved Date OA (osteoarthritis) of knee 06/04/2017 06/05/2017 Chronic pain of right knee 05/20/2017 0 07/04/2017 Primary osteoarthritis of left knee 05/10/2017 06/05/2017 Overview: Added automatically from request for surgery [id number] Abdominal pain 11/01/2016 05/20/2017 Cystitis 11/01/2016 05/20/2017 Skin tear of lower leg without complication 05/23/2016 09/19/2016 Carpal tunnel syndrome 11/19/201109/19 Acute tracheobronchitis 03/07/201101/04 Cough 07/23/2008 02/01/2012 Ganglion of joint 07/16/2005 09/19/2016 Other disorders of synovium, tendon, and bursa(727.89) 01/08/2005 05/30/2015 Abdominal pain, right upper quadrant 02/01/2012 Unspecified constipation Diverticulosis of colon (wit hout mention of hemorrhage) 05/30/2015 Hemorrhage of rectum and anus 09/19/2016 documented as of this encounter (statuses as of 11/14/2022) [facility]2018 History of Past illness Narrative* Problem Noted Date Diagnosed Date Resolved Date OA (osteoarthritis) of knee 06/04/2017 06/05/2017 Chronic pain of right knee 05/20/2017 0 07/04/2017 Primary osteoarthritis of left knee 05/10/2017 06/05/2017 Overview: Added automatically from request for surgery [id number] Abdominal pain 11/01/2016 05/20/2017 Cystitis 11/01/2016 05/20/2017 Skin tear of lower leg without complication 05/23/2016 09/19/2016 Carpal tunnel syndrome 11/19/201109/19 Acute tracheobronchitis 03/07/201101/04 Cough 07/23/2008 02/01/2012 Ganglion of joint 07/16/2005 09/19/2016 Other disorders of synovium, tendon, and bursa(727.89) 01/08/2005 05/30/2015 Abdominal pain, right upper quadrant 02/01/2012 Unspecified constipation Diverticulosis of colon (wit hout mention of hemorrhage) 05/30/2015 Hemorrhage of rectum and anus 09/19/2016 documented as of this encounter (statuses as of 11/14/2022) [facility]2018 History of Past illness Narrative* Problem Noted Date Diagnosed Date Resolved Date OA (osteoarthritis) of knee 06/04/2017 06/05/2017 Chronic pain of right knee 05/20/2017 0 07/04/2017 Primary osteoarthritis of left knee 05/10/2017 06/05/2017 Overview: Added automatically from request for surgery [id number] Abdominal pain 11/01/2016 05/20/2017 Cystitis 11/01/2016 05/20/2017 Skin tear of lower leg without complication 05/23/2016 09/19/2016 Carpal tunnel syndrome 11/19/201109/19 Acute tracheobronchitis 03/07/201101/04 Cough 07/23/2008 02/01/2012 Ganglion of joint 07/16/2005 09/19/2016 Other disorders of synovium, tendon, and bursa(727.89) 01/08/2005 05/30/2015 Abdominal pain, right upper quadrant 02/01/2012 Unspecified constipation Diverticulosis of colon (wit hout mention of hemorrhage) 05/30/2015 Hemorrhage of rectum and anus 09/19/2016 documented as of this encounter (statuses as of 11/15/2022) [facility]2018 History of Past illness Narrative* Problem Noted Date Diagnosed Date Resolved Date OA (osteoarthritis) of knee 06/04/2017 06/05/2017 Chronic pain of right knee 05/20/2017 0 07/04/2017 Primary osteoarthritis of left knee 05/10/2017 06/05/2017 Overview: Added automatically from request for surgery [id number] Abdominal pain 11/01/2016 05/20/2017 Cystitis 11/01/2016 05/20/2017 Skin tear of lower leg without complication 05/23/2016 09/19/2016 Carpal tunnel syndrome 11/19/201109/19 Acute tracheobronchitis 03/07/201101/04 Cough 07/23/2008 02/01/2012 Ganglion of joint 07/16/2005 09/19/2016 Other disorders of synovium, tendon, and bursa(727.89) 01/08/2005 05/30/2015 Abdominal pain, right upper quadrant 02/01/2012 Unspecified constipation Diverticulosis of colon (wit hout mention of hemorrhage) 05/30/2015 Hemorrhage of rectum and anus 09/19/2016 documented as of this encounter (statuses as of 11/20/2022) [facility]2018 History of Past illness Narrative* Problem Noted Date Diagnosed Date Resolved Date OA (osteoarthritis) of knee 06/04/2017 06/05/2017 Chronic pain of right knee 05/20/2017 0 07/04/2017 Primary osteoarthritis of left knee 05/10/2017 06/05/2017 Overview: Added automatically from request for surgery [id number] Abdominal pain 11/01/2016 05/20/2017 Cystitis 11/01/2016 05/20/2017 Skin tear of lower leg without complication 05/23/2016 09/19/2016 Carpal tunnel syndrome 11/19/201109/19 Acute tracheobronchitis 03/07/201101/04 Cough 07/23/2008 02/01/2012 Ganglion of joint 07/16/2005 09/19/2016 Other disorders of synovium, tendon, and bursa(727.89) 01/08/2005 05/30/2015 Abdominal pain, right upper quadrant 02/01/2012 Unspecified constipation Diverticulosis of colon (wit hout mention of hemorrhage) 05/30/2015 Hemorrhage of rectum and anus 09/19/2016 documented as of this encounter (statuses as of 11/23/2022) [facility]2018 History of Past illness Narrative* Problem Noted Date Diagnosed Date Resolved Date OA (osteoarthritis) of knee 06/04/2017 06/05/2017 Chronic pain of right knee 05/20/2017 0 07/04/2017 Primary osteoarthritis of left knee 05/10/2017 06/05/2017 Overview: Added automatically from request for surgery [id number] Abdominal pain 11/01/2016 05/20/2017 Cystitis 11/01/2016 05/20/2017 Skin tear of lower leg without complication 05/23/2016 09/19/2016 Carpal tunnel syndrome 11/19/201109/19 Acute tracheobronchitis 03/07/201101/04 Cough 07/23/2008 02/01/2012 Ganglion of joint 07/16/2005 09/19/2016 Other disorders of synovium, tendon, and bursa(727.89) 01/08/2005 05/30/2015 Abdominal pain, right upper quadrant 02/01/2012 Unspecified constipation Diverticulosis of colon (wit hout mention of hemorrhage) 05/30/2015 Hemorrhage of rectum and anus 09/19/2016 documented as of this encounter (statuses as of 11/26/2022) [facility]2018 History of Past illness Narrative* Problem Noted Date Diagnosed Date Resolved Date OA (osteoarthritis) of knee 06/04/2017 06/05/2017 Chronic pain of right knee 05/20/2017 0 07/04/2017 Primary osteoarthritis of left knee 05/10/2017 06/05/2017 Overview: Added automatically from request for surgery [id number] Abdominal pain 11/01/2016 05/20/2017 Cystitis 11/01/2016 05/20/2017 Skin tear of lower leg without complication 05/23/2016 09/19/2016 Carpal tunnel syndrome 11/19/201109/19 Acute tracheobronchitis 03/07/201101/04 Cough 07/23/2008 02/01/2012 Ganglion of joint 07/16/2005 09/19/2016 Other disorders of synovium, tendon, and bursa(727.89) 01/08/2005 05/30/2015 Abdominal pain, right upper quadrant 02/01/2012 Unspecified constipation Diverticulosis of colon (wit hout mention of hemorrhage) 05/30/2015 Hemorrhage of rectum and anus 09/19/2016 documented as of this encounter (statuses as of 12/11/2022) [facility]2018 History of Past illness Narrative* Problem Noted Date Diagnosed Date Resolved Date OA (osteoarthritis) of knee 06/04/2017 06/05/2017 Chronic pain of right knee 05/20/2017 0 07/04/2017 Primary osteoarthritis of left knee 05/10/2017 06/05/2017 Overview: Added automatically from request for surgery [id number] Abdominal pain 11/01/2016 05/20/2017 Cystitis 11/01/2016 05/20/2017 Skin tear of lower leg without complication 05/23/2016 09/19/2016 Carpal tunnel syndrome 11/19/201109/19 Acute tracheobronchitis 03/07/201101/04 Cough 07/23/2008 02/01/2012 Ganglion of joint 07/16/2005 09/19/2016 Other disorders of synovium, tendon, and bursa(727.89) 01/08/2005 05/30/2015 Abdominal pain, right upper quadrant 02/01/2012 Unspecified constipation Diverticulosis of colon (wit hout mention of hemorrhage) 05/30/2015 Hemorrhage of rectum and anus 09/19/2016 documented as of this encounter (statuses as of 01/02/2023) [facility]2018 History of Past illness Narrative* Problem Noted Date Diagnosed Date Resolved Date OA (osteoarthritis) of knee 06/04/2017 06/05/2017 Chronic pain of right knee 05/20/2017 0 07/04/2017 Primary osteoarthritis of left knee 05/10/2017 06/05/2017 Overview: Added automatically from request for surgery [id number] Abdominal pain 11/01/2016 05/20/2017 Cystitis 11/01/2016 05/20/2017 Skin tear of lower leg without complication 05/23/2016 09/19/2016 Carpal tunnel syndrome 11/19/201109/19 Acute tracheobronchitis 03/07/201101/04 Cough 07/23/2008 02/01/2012 Ganglion of joint 07/16/2005 09/19/2016 Other disorders of synovium, tendon, and bursa(727.89) 01/08/2005 05/30/2015 Abdominal pain, right upper quadrant 02/01/2012 Unspecified constipation Diverticulosis of colon (fernie hout mention of hemorrhage) 05/30/2015 Hemorrhage of rectum and anus 09/19/2016 documented as of this encounter (statuses as of 01/06/2023) [facility]2018 History of Past illness Narrative* Problem Noted Date Diagnosed Date Resolved Date OA (osteoarthritis) of knee 06/04/2017 06/05/2017 Chronic pain of right knee 05/20/2017 0 07/04/2017 Primary osteoarthritis of left knee 05/10/2017 06/05/2017 Overview: Added automatically from request for surgery [id number] Abdominal pain 11/01/2016 05/20/2017 Cystitis 11/01/2016 05/20/2017 Skin tear of lower leg without complication 05/23/2016 09/19/2016 Carpal tunnel syndrome 11/19/201109/19 Acute tracheobronchitis 03/07/201101/04 Cough 07/23/2008 02/01/2012 Ganglion of joint 07/16/2005 09/19/2016 Other disorders of synovium, tendon, and bursa(727.89) 01/08/2005 05/30/2015 Abdominal pain, right upper quadrant 02/01/2012 Unspecified constipation Diverticulosis of colon (wit hout mention of hemorrhage) 05/30/2015 Hemorrhage of rectum and anus 09/19/2016 documented as of this encounter (statuses as of 01/06/2023) [facility]2018 History of Past illness Narrative* Problem Noted Date Diagnosed Date Resolved Date OA (osteoarthritis) of knee 06/04/2017 06/05/2017 Chronic pain of right knee 05/20/2017 0 07/04/2017 Primary osteoarthritis of left knee 05/10/2017 06/05/2017 Overview: Added automatically from request for surgery [id number] Abdominal pain 11/01/2016 05/20/2017 Cystitis 11/01/2016 05/20/2017 Skin tear of lower leg without complication 05/23/2016 09/19/2016 Carpal tunnel syndrome 11/19/201109/19 Acute tracheobronchitis 03/07/201101/04 Cough 07/23/2008 02/01/2012 Ganglion of joint 07/16/2005 09/19/2016 Other disorders of synovium, tendon, and bursa(727.89) 01/08/2005 05/30/2015 Abdominal pain, right upper quadrant 02/01/2012 Unspecified constipation Diverticulosis of colon (wit hout mention of hemorrhage) 05/30/2015 Hemorrhage of rectum and anus 09/19/2016 documented as of this encounter (statuses as of 01/06/2023) [facility]2018 History of Past illness Narrative* Problem Noted Date Diagnosed Date Resolved Date OA (osteoarthritis) of knee 06/04/2017 06/05/2017 Chronic pain of right knee 05/20/2017 0 07/04/2017 Primary osteoarthritis of left knee 05/10/2017 06/05/2017 Overview: Added automatically from request for surgery [id number] Abdominal pain 11/01/2016 05/20/2017 Cystitis 11/01/2016 05/20/2017 Skin tear of lower leg without complication 05/23/2016 09/19/2016 Carpal tunnel syndrome 11/19/201109/19 Acute tracheobronchitis 03/07/201101/04 Cough 07/23/2008 02/01/2012 Ganglion of joint 07/16/2005 09/19/2016 Other disorders of synovium, tendon, and bursa(727.89) 01/08/2005 05/30/2015 Abdominal pain, right upper quadrant 02/01/2012 Unspecified constipation Diverticulosis of colon (wit hout mention of hemorrhage) 05/30/2015 Hemorrhage of rectum and anus 09/19/2016 documented as of this encounter (statuses as of 01/06/2023) [facility] History of Past illness Narrative* Problem Noted Date Diagnosed Date Resolved Date OA (osteoarthritis) of knee 06/04/2017 06/05/2017 Chronic pain of right knee 05/20/2017 0 07/04/2017 Primary osteoarthritis of left knee 05/10/2017 06/05/2017 Overview: Added automatically from request for surgery [id number] Abdominal pain 11/01/2016 05/20/2017 Cystitis 11/01/2016 05/20/2017 Skin tear of lower leg without complication 05/23/2016 09/19/2016 Carpal tunnel syndrome 11/19/201109/19 Acute tracheobronchitis 03/07/201101/04 Cough 07/23/2008 02/01/2012 Ganglion of joint 07/16/2005 09/19/2016 Other disorders of synovium, tendon, and bursa(727.89) 01/08/2005 05/30/2015 Abdominal pain, right upper quadrant 02/01/2012 Unspecified constipation Diverticulosis of colon (wit hout mention of hemorrhage) 05/30/2015 Hemorrhage of rectum and anus 09/19/2016 documented as of this encounter (statuses as of 01/10/2023) [facility] History of Past illness Narrative* Problem Noted Date Diagnosed Date Resolved Date OA (osteoarthritis) of knee 06/04/2017 06/05/2017 Chronic pain of right knee 05/20/2017 0 07/04/2017 Primary osteoarthritis of left knee 05/10/2017 06/05/2017 Overview: Added automatically from request for surgery [id number] Abdominal pain 11/01/2016 05/20/2017 Cystitis 11/01/2016 05/20/2017 Skin tear of lower leg without complication 05/23/2016 09/19/2016 Carpal tunnel syndrome 11/19/201109/19 Acute tracheobronchitis 03/07/201101/04 Cough 07/23/2008 02/01/2012 Ganglion of joint 07/16/2005 09/19/2016 Other disorders of synovium, tendon, and bursa(727.89) 01/08/2005 05/30/2015 Abdominal pain, right upper quadrant 02/01/2012 Unspecified constipation Diverticulosis of colon (wit hout mention of hemorrhage) 05/30/2015 Hemorrhage of rectum and anus 09/19/2016 documented as of this encounter (statuses as of 01/11/2023) [facility] History of Past illness Narrative* Problem Noted Date Diagnosed Date Resolved Date OA (osteoarthritis) of knee 06/04/2017 06/05/2017 Chronic pain of right knee 05/20/2017 0 07/04/2017 Primary osteoarthritis of left knee 05/10/2017 06/05/2017 Overview: Added automatically from request for surgery [id number] Abdominal pain 11/01/2016 05/20/2017 Cystitis 11/01/2016 05/20/2017 Skin tear of lower leg without complication 05/23/2016 09/19/2016 Carpal tunnel syndrome 11/19/201109/19 Acute tracheobronchitis 03/07/201101/04 Cough 07/23/2008 02/01/2012 Ganglion of joint 07/16/2005 09/19/2016 Other disorders of synovium, tendon, and bursa(727.89) 01/08/2005 05/30/2015 Abdominal pain, right upper quadrant 02/01/2012 Unspecified constipation Diverticulosis of colon (wit hout mention of hemorrhage) 05/30/2015 Hemorrhage of rectum and anus 09/19/2016 documented as of this encounter (statuses as of 01/15/2023) [facility] History of Past illness Narrative* Problem Noted Date Diagnosed Date Resolved Date OA (osteoarthritis) of knee 06/04/2017 06/05/2017 Chronic pain of right knee 05/20/2017 0 07/04/2017 Primary osteoarthritis of left knee 05/10/2017 06/05/2017 Overview: Added automatically from request for surgery [id number] Abdominal pain 11/01/2016 05/20/2017 Cystitis 11/01/2016 05/20/2017 Skin tear of lower leg without complication 05/23/2016 09/19/2016 Carpal tunnel syndrome 11/19/201109/19 Acute tracheobronchitis 03/07/201101/04 Cough 07/23/2008 02/01/2012 Ganglion of joint 07/16/2005 09/19/2016 Other disorders of synovium, tendon, and bursa(727.89) 01/08/2005 05/30/2015 Abdominal pain, right upper quadrant 02/01/2012 Unspecified constipation Diverticulosis of colon (wit hout mention of hemorrhage) 05/30/2015 Hemorrhage of rectum and anus 09/19/2016 documented as of this encounter (statuses as of 01/15/2023) [facility] History of Past illness Narrative* Problem Noted Date Diagnosed Date Resolved Date OA (osteoarthritis) of knee 06/04/2017 06/05/2017 Chronic pain of right knee 05/20/2017 0 07/04/2017 Primary osteoarthritis of left knee 05/10/2017 06/05/2017 Overview: Added automatically from request for surgery [id number] Abdominal pain 11/01/2016 05/20/2017 Cystitis 11/01/2016 05/20/2017 Skin tear of lower leg without complication 05/23/2016 09/19/2016 Carpal tunnel syndrome 11/19/201109/19 Acute tracheobronchitis 03/07/201101/04 Cough 07/23/2008 02/01/2012 Ganglion of joint 07/16/2005 09/19/2016 Other disorders of synovium, tendon, and bursa(727.89) 01/08/2005 05/30/2015 Abdominal pain, right upper quadrant 02/01/2012 Unspecified constipation Diverticulosis of colon (wit hout mention of hemorrhage) 05/30/2015 Hemorrhage of rectum and anus 09/19/2016 documented as of this encounter (statuses as of 01/17/2023) [facility] History of Past illness Narrative* Problem Noted Date Diagnosed Date Resolved Date OA (osteoarthritis) of knee 06/04/2017 06/05/2017 Chronic pain of right knee 05/20/2017 0 07/04/2017 Primary osteoarthritis of left knee 05/10/2017 06/05/2017 Overview: Added automatically from request for surgery [id number] Abdominal pain 11/01/2016 05/20/2017 Cystitis 11/01/2016 05/20/2017 Skin tear of lower leg without complication 05/23/2016 09/19/2016 Carpal tunnel syndrome 11/19/201109/19 Acute tracheobronchitis 03/07/201101/04 Cough 07/23/2008 02/01/2012 Ganglion of joint 07/16/2005 09/19/2016 Other disorders of synovium, tendon, and bursa(727.89) 01/08/2005 05/30/2015 Abdominal pain, right upper quadrant 02/01/2012 Unspecified constipation Diverticulosis of colon (wit hout mention of hemorrhage) 05/30/2015 Hemorrhage of rectum and anus 09/19/2016 documented as of this encounter (statuses as of 01/20/2023) [facility] History of Past illness Narrative* Problem Noted Date Diagnosed Date Resolved Date OA (osteoarthritis) of knee 06/04/2017 06/05/2017 Chronic pain of right knee 05/20/2017 0 07/04/2017 Primary osteoarthritis of left knee 05/10/2017 06/05/2017 Overview: Added automatically from request for surgery [id number] Abdominal pain 11/01/2016 05/20/2017 Cystitis 11/01/2016 05/20/2017 Skin tear of lower leg without complication 05/23/2016 09/19/2016 Carpal tunnel syndrome 11/19/201109/19 Acute tracheobronchitis 03/07/201101/04 Cough 07/23/2008 02/01/2012 Ganglion of joint 07/16/2005 09/19/2016 Other disorders of synovium, tendon, and bursa(727.89) 01/08/2005 05/30/2015 Abdominal pain, right upper quadrant 02/01/2012 Unspecified constipation Diverticulosis of colon (wit hout mention of hemorrhage) 05/30/2015 Hemorrhage of rectum and anus 09/19/2016 documented as of this encounter (statuses as of 01/21/2023) [facility] History of Past illness Narrative* Problem Noted Date Diagnosed Date Resolved Date OA (osteoarthritis) of knee 06/04/2017 06/05/2017 Chronic pain of right knee 05/20/2017 0 07/04/2017 Primary osteoarthritis of left knee 05/10/2017 06/05/2017 Overview: Added automatically from request for surgery [id number] Abdominal pain 11/01/2016 05/20/2017 Cystitis 11/01/2016 05/20/2017 Skin tear of lower leg without complication 05/23/2016 09/19/2016 Carpal tunnel syndrome 11/19/201109/19 Acute tracheobronchitis 03/07/201101/04 Cough 07/23/2008 02/01/2012 Ganglion of joint 07/16/2005 09/19/2016 Other disorders of synovium, tendon, and bursa(727.89) 01/08/2005 05/30/2015 Abdominal pain, right upper quadrant 02/01/2012 Unspecified constipation Diverticulosis of colon (wit hout mention of hemorrhage) 05/30/2015 Hemorrhage of rectum and anus 09/19/2016 documented as of this encounter (statuses as of 01/23/2023) [facility]2018 History of Past illness Narrative* Problem Noted Date Diagnosed Date Resolved Date OA (osteoarthritis) of knee 06/04/2017 06/05/2017 Chronic pain of right knee 05/20/2017 0 07/04/2017 Primary osteoarthritis of left knee 05/10/2017 06/05/2017 Overview: Added automatically from request for surgery [id number] Abdominal pain 11/01/2016 05/20/2017 Cystitis 11/01/2016 05/20/2017 Skin tear of lower leg without complication 05/23/2016 09/19/2016 Carpal tunnel syndrome 11/19/201109/19 Acute tracheobronchitis 03/07/201101/04 Cough 07/23/2008 02/01/2012 Ganglion of joint 07/16/2005 09/19/2016 Other disorders of synovium, tendon, and bursa(727.89) 01/08/2005 05/30/2015 Abdominal pain, right upper quadrant 02/01/2012 Unspecified constipation Diverticulosis of colon (wit hout mention of hemorrhage) 05/30/2015 Hemorrhage of rectum and anus 09/19/2016 documented as of this encounter (statuses as of 01/29/2023) [facility] History of Past illness Narrative* Problem Noted Date Diagnosed Date Resolved Date OA (osteoarthritis) of knee 06/04/2017 06/05/2017 Chronic pain of right knee 05/20/2017 0 07/04/2017 Primary osteoarthritis of left knee 05/10/2017 06/05/2017 Overview: Added automatically from request for surgery [id number] Abdominal pain 11/01/2016 05/20/2017 Cystitis 11/01/2016 05/20/2017 Skin tear of lower leg without complication 05/23/2016 09/19/2016 Carpal tunnel syndrome 11/19/201109/19 Acute tracheobronchitis 03/07/201101/04 Cough 07/23/2008 02/01/2012 Ganglion of joint 07/16/2005 09/19/2016 Other disorders of synovium, tendon, and bursa(727.89) 01/08/2005 05/30/2015 Abdominal pain, right upper quadrant 02/01/2012 Unspecified constipation Diverticulosis of colon (wit hout mention of hemorrhage) 05/30/2015 Hemorrhage of rectum and anus 09/19/2016 documented as of this encounter (statuses as of 02/06/2023) [facility] History of Past illness Narrative* Problem Noted Date Diagnosed Date Resolved Date OA (osteoarthritis) of knee 06/04/2017 06/05/2017 Chronic pain of right knee 05/20/2017 0 07/04/2017 Primary osteoarthritis of left knee 05/10/2017 06/05/2017 Overview: Added automatically from request for surgery [id number] Abdominal pain 11/01/2016 05/20/2017 Cystitis 11/01/2016 05/20/2017 Skin tear of lower leg without complication 05/23/2016 09/19/2016 Carpal tunnel syndrome 11/19/201109/19 Acute tracheobronchitis 03/07/201101/04 Cough 07/23/2008 02/01/2012 Ganglion of joint 07/16/2005 09/19/2016 Other disorders of synovium, tendon, and bursa(727.89) 01/08/2005 05/30/2015 Abdominal pain, right upper quadrant 02/01/2012 Unspecified constipation Diverticulosis of colon (wit hout mention of hemorrhage) 05/30/2015 Hemorrhage of rectum and anus 09/19/2016 documented as of this encounter (statuses as of 02/06/2023) [facility] History of Past illness Narrative* Problem Noted Date Diagnosed Date Resolved Date OA (osteoarthritis) of knee 06/04/2017 06/05/2017 Chronic pain of right knee 05/20/2017 0 07/04/2017 Primary osteoarthritis of left knee 05/10/2017 06/05/2017 Overview: Added automatically from request for surgery [id number] Abdominal pain 11/01/2016 05/20/2017 Cystitis 11/01/2016 05/20/2017 Skin tear of lower leg without complication 05/23/2016 09/19/2016 Carpal tunnel syndrome 11/19/201109/19 Acute tracheobronchitis 03/07/201101/04 Cough 07/23/2008 02/01/2012 Ganglion of joint 07/16/2005 09/19/2016 Other disorders of synovium, tendon, and bursa(727.89) 01/08/2005 05/30/2015 Abdominal pain, right upper quadrant 02/01/2012 Unspecified constipation Diverticulosis of colon (wit hout mention of hemorrhage) 05/30/2015 Hemorrhage of rectum and anus 09/19/2016 documented as of this encounter (statuses as of 02/14/2023) [facility] History of Past illness Narrative* Problem Noted Date Diagnosed Date Resolved Date OA (osteoarthritis) of knee 06/04/2017 06/05/2017 Chronic pain of right knee 05/20/2017 0 07/04/2017 Primary osteoarthritis of left knee 05/10/2017 06/05/2017 Overview: Added automatically from request for surgery [id number] Abdominal pain 11/01/2016 05/20/2017 Cystitis 11/01/2016 05/20/2017 Skin tear of lower leg without complication 05/23/2016 09/19/2016 Carpal tunnel syndrome 11/19/201109/19 Acute tracheobronchitis 03/07/201101/04 Cough 07/23/2008 02/01/2012 Ganglion of joint 07/16/2005 09/19/2016 Other disorders of synovium, tendon, and bursa(727.89) 01/08/2005 05/30/2015 Abdominal pain, right upper quadrant 02/01/2012 Unspecified constipation Diverticulosis of colon (wit hout mention of hemorrhage) 05/30/2015 Hemorrhage of rectum and anus 09/19/2016 documented as of this encounter (statuses as of 02/15/2023) [facility] History of Past illness Narrative* Problem Noted Date Diagnosed Date Resolved Date OA (osteoarthritis) of knee 06/04/2017 06/05/2017 Chronic pain of right knee 05/20/2017 0 07/04/2017 Primary osteoarthritis of left knee 05/10/2017 06/05/2017 Overview: Added automatically from request for surgery [id number] Abdominal pain 11/01/2016 05/20/2017 Cystitis 11/01/2016 05/20/2017 Skin tear of lower leg without complication 05/23/2016 09/19/2016 Carpal tunnel syndrome 11/19/201109/19 Acute tracheobronchitis 03/07/201101/04 Cough 07/23/2008 02/01/2012 Ganglion of joint 07/16/2005 09/19/2016 Other disorders of synovium, tendon, and bursa(727.89) 01/08/2005 05/30/2015 Abdominal pain, right upper quadrant 02/01/2012 Unspecified constipation Diverticulosis of colon (wit hout mention of hemorrhage) 05/30/2015 Hemorrhage of rectum and anus 09/19/2016 documented as of this encounter (statuses as of 04/18/2023) [facility] History of Past illness Narrative* Problem Noted Date Diagnosed Date Resolved Date OA (osteoarthritis) of knee 06/04/2017 06/05/2017 Chronic pain of right knee 05/20/2017 0 07/04/2017 Primary osteoarthritis of left knee 05/10/2017 06/05/2017 Overview: Added automatically from request for surgery [id number] Abdominal pain 11/01/2016 05/20/2017 Cystitis 11/01/2016 05/20/2017 Skin tear of lower leg without complication 05/23/2016 09/19/2016 Carpal tunnel syndrome 11/19/201109/19 Acute tracheobronchitis 03/07/201101/04 Cough 07/23/2008 02/01/2012 Ganglion of joint 07/16/2005 09/19/2016 Other disorders of synovium, tendon, and bursa(727.89) 01/08/2005 05/30/2015 Abdominal pain, right upper quadrant 02/01/2012 Unspecified constipation Diverticulosis of colon (wit hout mention of hemorrhage) 05/30/2015 Hemorrhage of rectum and anus 09/19/2016 documented as of this encounter (statuses as of 05/06/2023) [facility] History of Past illness Narrative* Problem Noted Date Diagnosed Date Resolved Date OA (osteoarthritis) of knee 06/04/2017 06/05/2017 Chronic pain of right knee 05/20/2017 0 07/04/2017 Primary osteoarthritis of left knee 05/10/2017 06/05/2017 Overview: Added automatically from request for surgery [id number] Abdominal pain 11/01/2016 05/20/2017 Cystitis 11/01/2016 05/20/2017 Skin tear of lower leg without complication 05/23/2016 09/19/2016 Carpal tunnel syndrome 11/19/201109/19 Acute tracheobronchitis 03/07/201101/04 Cough 07/23/2008 02/01/2012 Ganglion of joint 07/16/2005 09/19/2016 Other disorders of synovium, tendon, and bursa(727.89) 01/08/2005 05/30/2015 Abdominal pain, right upper quadrant 02/01/2012 Unspecified constipation Diverticulosis of colon (wit hout mention of hemorrhage) 05/30/2015 Hemorrhage of rectum and anus 09/19/2016 documented as of this encounter (statuses as of 05/08/2023) [facility] History of Past illness Narrative* Problem Noted Date Diagnosed Date Resolved Date OA (osteoarthritis) of knee 06/04/2017 06/05/2017 Chronic pain of right knee 05/20/2017 0 07/04/2017 Primary osteoarthritis of left knee 05/10/2017 06/05/2017 Overview: Added automatically from request for surgery [id number] Abdominal pain 11/01/2016 05/20/2017 Cystitis 11/01/2016 05/20/2017 Skin tear of lower leg without complication 05/23/2016 09/19/2016 Carpal tunnel syndrome 11/19/201109/19 Acute tracheobronchitis 03/07/201101/04 Cough 07/23/2008 02/01/2012 Ganglion of joint 07/16/2005 09/19/2016 Other disorders of synovium, tendon, and bursa(727.89) 01/08/2005 05/30/2015 Abdominal pain, right upper quadrant 02/01/2012 Unspecified constipation Diverticulosis of colon (wit hout mention of hemorrhage) 05/30/2015 Hemorrhage of rectum and anus 09/19/2016 documented as of this encounter (statuses as of 05/09/2023) [facility] History of Past illness Narrative* Problem Noted Date Diagnosed Date Resolved Date OA (osteoarthritis) of knee 06/04/2017 06/05/2017 Chronic pain of right knee 05/20/2017 0 07/04/2017 Primary osteoarthritis of left knee 05/10/2017 06/05/2017 Overview: Added automatically from request for surgery [id number] Abdominal pain 11/01/2016 05/20/2017 Cystitis 11/01/2016 05/20/2017 Skin tear of lower leg without complication 05/23/2016 09/19/2016 Carpal tunnel syndrome 11/19/201109/19 Acute tracheobronchitis 03/07/201101/04 Cough 07/23/2008 02/01/2012 Ganglion of joint 07/16/2005 09/19/2016 Other disorders of synovium, tendon, and bursa(727.89) 01/08/2005 05/30/2015 Abdominal pain, right upper quadrant 02/01/2012 Unspecified constipation Diverticulosis of colon (wit hout mention of hemorrhage) 05/30/2015 Hemorrhage of rectum and anus 09/19/2016 documented as of this encounter (statuses as of 05/15/2023) [facility] History of Past illness Narrative* Problem Noted Date Diagnosed Date Resolved Date OA (osteoarthritis) of knee 06/04/2017 06/05/2017 Chronic pain of right knee 05/20/2017 0 07/04/2017 Primary osteoarthritis of left knee 05/10/2017 06/05/2017 Overview: Added automatically from request for surgery [id number] Abdominal pain 11/01/2016 05/20/2017 Cystitis 11/01/2016 05/20/2017 Skin tear of lower leg without complication 05/23/2016 09/19/2016 Carpal tunnel syndrome 11/19/201109/19 Acute tracheobronchitis 03/07/201101/04 Cough 07/23/2008 02/01/2012 Ganglion of joint 07/16/2005 09/19/2016 Other disorders of synovium, tendon, and bursa(727.89) 01/08/2005 05/30/2015 Abdominal pain, right upper quadrant 02/01/2012 Unspecified constipation Diverticulosis of colon (wit hout mention of hemorrhage) 05/30/2015 Hemorrhage of rectum and anus 09/19/2016 documented as of this encounter (statuses as of 05/23/2023) [facility]2018 History of Past illness Narrative* Problem Noted Date Diagnosed Date Resolved Date OA (osteoarthritis) of knee 06/04/2017 06/05/2017 Chronic pain of right knee 05/20/2017 0 07/04/2017 Primary osteoarthritis of left knee 05/10/2017 06/05/2017 Overview: Added automatically from request for surgery [id number] Abdominal pain 11/01/2016 05/20/2017 Cystitis 11/01/2016 05/20/2017 Skin tear of lower leg without complication 05/23/2016 09/19/2016 Carpal tunnel syndrome 11/19/201109/19 Acute tracheobronchitis 03/07/201101/04 Cough 07/23/2008 02/01/2012 Ganglion of joint 07/16/2005 09/19/2016 Other disorders of synovium, tendon, and bursa(727.89) 01/08/2005 05/30/2015 Abdominal pain, right upper quadrant 02/01/2012 Unspecified constipation Diverticulosis of colon (wit hout mention of hemorrhage) 05/30/2015 Hemorrhage of rectum and anus 09/19/2016 documented as of this encounter (statuses as of 05/24/2023) [facility] History of Past illness Narrative* Problem Noted Date Diagnosed Date Resolved Date OA (osteoarthritis) of knee 06/04/2017 06/05/2017 Chronic pain of right knee 05/20/2017 0 07/04/2017 Primary osteoarthritis of left knee 05/10/2017 06/05/2017 Overview: Added automatically from request for surgery [id number] Abdominal pain 11/01/2016 05/20/2017 Cystitis 11/01/2016 05/20/2017 Skin tear of lower leg without complication 05/23/2016 09/19/2016 Carpal tunnel syndrome 11/19/201109/19 Acute tracheobronchitis 03/07/201101/04 Cough 07/23/2008 02/01/2012 Ganglion of joint 07/16/2005 09/19/2016 Other disorders of synovium, tendon, and bursa(727.89) 01/08/2005 05/30/2015 Abdominal pain, right upper quadrant 02/01/2012 Unspecified constipation Diverticulosis of colon (wit hout mention of hemorrhage) 05/30/2015 Hemorrhage of rectum and anus 09/19/2016 documented as of this encounter (statuses as of 06/04/2023) [facility] History of Past illness Narrative* Problem Noted Date Diagnosed Date Resolved Date OA (osteoarthritis) of knee 06/04/2017 06/05/2017 Chronic pain of right knee 05/20/2017 0 07/04/2017 Primary osteoarthritis of left knee 05/10/2017 06/05/2017 Overview: Added automatically from request for surgery [id number] Abdominal pain 11/01/2016 05/20/2017 Cystitis 11/01/2016 05/20/2017 Skin tear of lower leg without complication 05/23/2016 09/19/2016 Carpal tunnel syndrome 11/19/201109/19 Acute tracheobronchitis 03/07/201101/04 Cough 07/23/2008 02/01/2012 Ganglion of joint 07/16/2005 09/19/2016 Other disorders of synovium, tendon, and bursa(727.89) 01/08/2005 05/30/2015 Abdominal pain, right upper quadrant 02/01/2012 Unspecified constipation Diverticulosis of colon (wit hout mention of hemorrhage) 05/30/2015 Hemorrhage of rectum and anus 09/19/2016 documented as of this encounter (statuses as of 06/08/2023) [facility] History of Past illness Narrative* Problem Noted Date Diagnosed Date Resolved Date OA (osteoarthritis) of knee 06/04/2017 06/05/2017 Chronic pain of right knee 05/20/2017 0 07/04/2017 Primary osteoarthritis of left knee 05/10/2017 06/05/2017 Overview: Added automatically from request for surgery [id number] Abdominal pain 11/01/2016 05/20/2017 Cystitis 11/01/2016 05/20/2017 Skin tear of lower leg without complication 05/23/2016 09/19/2016 Carpal tunnel syndrome 11/19/201109/19 Acute tracheobronchitis 03/07/201101/04 Cough 07/23/2008 02/01/2012 Ganglion of joint 07/16/2005 09/19/2016 Other disorders of synovium, tendon, and bursa(727.89) 01/08/2005 05/30/2015 Abdominal pain, right upper quadrant 02/01/2012 Unspecified constipation Diverticulosis of colon (wit hout mention of hemorrhage) 05/30/2015 Hemorrhage of rectum and anus 09/19/2016 documented as of this encounter (statuses as of 06/13/2023) [facility] No data available for this section [facility] Evaluation note* Diagnosis Muscle strain of chest wall, initial encounter- Primary [facility] [place] [facility]* Diagnosis Flank pain- Primary Abdominal pain, unspecified site [facility]* Diagnosis Microscopic hematuria- Primary [facility] noteNo assessment information availableWTwin [facility] Work Phone: Evaluation note* Diagnosis Pain in both knees, unspecified chronicity- Primary [facility]* Diagnosis Neck pain- Primary Cervicalgia Hypertension, essential Unspecified essential hypertension IFG (impaired fasting glucose) Impaired fasting glucose Dyslipidemia Other and unspecified hyperlipidemia Inflammatory arthritis Unspecified inflammatory polyarthropathy Rib injury Sprain of ribs Osteoarthritis of spine with radiculopathy, cervical region DDD (degenerative disc disease), cervical Degeneration of cervical intervertebral disc [facility] Diagnosis Status post total left knee replacement- Primary Status post total right knee replacement Quadriceps weakness Muscle weakness (generalized) [facility] Diagnosis Pain in both knees, unspecified chronicity [facility]* Diagnosis Inflammatory arthritis Unspecified inflammatory polyarthropathy [facility] [place] [facility]* Diagnosis Foot pain, left- Primary Pain in limb Erythema of foot Unspecified erythematous condition [facility] Diagnosis Foot pain, left- Primary Pain in limb Erythema of foot Unspecified erythematous condition Urinary frequency Sensation of fullness in left ear Other disorders of ear Psoriatic arthritis (HCC) Psoriatic arthropathy 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 Seasonal allergies Allergic rhinitis, cause unspecified Scalp lump Swelling, mass, or lump in head and neck [facility] Diagnosis Repetitive stress injury- Primary Unspecified site of sprain and strain Foot pain, left Pain in limb Erythema of foot Unspecified erythematous condition [facility] [place] [facility]* Diagnosis Repetitive stress injury Unspecified site of sprain and strain [facility] [place] [facility]* Diagnosis Injury of left hand, initial encounter- Primary documented in this encounter [facility] note* Diagnosis Status post total left knee replacement- Primary Status post total right knee replacement [facility] [place] [facility]* Diagnosis Bee sting, accidental or unintentional, initial encounter [facility] [place] [facility]* Diagnosis Diarrhea, unspecified type- Primary Mild headache Headache [facility] [place] [facility] Diagnosis Epigastric abdominal pain Abdominal pain, epigastric [facility] [place] [facility]* Diagnosis Prolapse of intestine- Primary Other specified disorder of intestines Pelvic floor dysfunction in female Urinary incontinence, unspecified type [facility] [place] [facility]* Diagnosis Prolapse of intestine- Primary Other specified disorder of intestines Rectocele Enterocele Hernia of unspecified site of abdominal cavity without mention of obstruction or gangrene Urinary tract infection without hematuria, site unspecified Rectal prolapse [facility] [place] [facility]* Diagnosis Status post total left knee replacement- Primary Status post total right knee replacement [facility] [place] [facility] Diagnosis Status post total left knee replacement Status post total right knee replacement [facility] [place] [facility]* Diagnosis Urinary frequency- Primary [facility] [place] [facility]* Diagnosis Prolapse of intestine- Primary Other specified disorder of intestines Urinary incontinence, unspecified type Pelvic floor dysfunction in female [facility] [place] [facility]* Diagnosis Urinary frequency- Primary Pelvic floor dysfunction in female Prolapse of intestine Other specified disorder of intestines Neck pain Cervicalgia Osteoarthritis of spine with radiculopathy, cervical region [facility] [place] [facility] Diagnosis Prolapse of intestine- Primary Other specified disorder of intestines Urinary incontinence, unspecified type Pelvic floor dysfunction in female [facility] [place] [facility] Diagnosis Prolapse of intestine- Primary Other specified disorder of intestines Urinary incontinence, unspecified type Pelvic floor dysfunction in female [facility] [place] [facility]* Diagnosis Urinary frequency- Primary [facility] [place] [facility]* Diagnosis Prolapse of intestine- Primary Other specified disorder of intestines Pelvic floor dysfunction in female Urinary frequency [facility] [place] [facility]* Diagnosis Rectocele- Primary Urinary frequency Frequent UTI Urinary tract infection, site not specified [facility] [place] [facility]* Diagnosis Urinary frequency- Primary Viral URI Acute upper respiratory infections of unspecified site [facility] [place] [facility]* Diagnosis Rectocele Enterocele Hernia of unspecified site of abdominal cavity without mention of obstruction or gangrene Rectal prolapse [facility] [place] [facility]* Diagnosis Dental infection- Primary Acute apical periodontitis of pulpal origin [facility] [place] [facility]* Diagnosis Rectal prolapse- Primary Rectocele Enterocele Hernia of unspecified site of abdominal cavity without mention of obstruction or gangrene [facility] [place] [facility]* Diagnosis Screening for colon cancer- Primary Special screening for malignant neoplasms, colon documented [facility] [place] [facility]* Diagnosis Urinary incontinence, urge- Primary Urge incontinence Preoperative examination Preoperative examination, unspecified [facility] [place] [facility]* Diagnosis Urinary frequency- Primary Prolapse of intestine Other specified disorder of intestines Pelvic floor dysfunction in female Hypertension, essential Unspecified essential hypertension Dyslipidemia Other and unspecified hyperlipidemia [facility] [place] [facility]* Diagnosis Urinary frequency- Primary Pain in both lower extremities [facility] [place] [facility]* Diagnosis Rectal prolapse- Primary [facility] [place] [facility]* Diagnosis Rectocele- Primary Other female genital prolapse Urinary frequency Vaginal vault prolapse Unspecified prolapse of vaginal huynh Cystocele, midline Urinary incontinence, urge Urge incontinence Overactive bladder Hypertonicity of bladder Rectal prolapse [facility] [place] [facility]* Diagnosis JOSHUA (generalized anxiety disorder)- Primary Generalized anxiety disorder Cough, persistent Cough Pain of right lower extremity Chronic obstructive pulmonary disease, unspecified COPD type (HCC) Psoriatic arthritis (HCC) Psoriatic arthropathy documented in this [facility] [place] [facility] Diagnosis Hypertension, essential Unspecified essential hypertension [facility] this [facility] [place] [facility]* Diagnosis Rash- Primary Rash and other nonspecific skin eruption Bug bite, initial encounter [facility] Diagnosis Nasal sore- Primary Other diseases of nasal cavity and sinuses JOSHUA (generalized anxiety disorder) Generalized anxiety disorder Cough, persistent Cough Short-term memory loss Memory loss Word finding difficulty Problems with communication (including speech) Rectal prolapse Chronic obstructive pulmonary disease, unspecified COPD type (HCC) Psoriatic arthritis (HCC) Psoriatic arthropathy [facility] [place] [facility]* Diagnosis Bee sting, accidental or unintentional, initial encounter [facility] [place] [facility]* Diagnosis Acute cough- Primary Bee sting, accidental or unintentional, initial encounter [facility] [place] [facility]* Diagnosis Viral bronchitis- Primary Acute bronchitis Chronic obstructive pulmonary disease, unspecified COPD type (HCC) documented [facility] [place] [facility]* Diagnosis Urinary frequency- Primary [facility] [place] [facility]* Diagnosis Recurrent UTI (urinary tract infection)- Primary Urinary tract infection, site not specified Osteopenia, senile Disorder of bone and cartilage, unspecified Chronic cough Cough Rales Abnormal chest sounds Psoriatic arthritis (HCC) Psoriatic arthropathy Chronic obstructive pulmonary disease, unspecified COPD type (HCC) Rectal prolapse [facility] [place] [facility]* Diagnosis Rectocele- Primary documented in this encounter [facility] note* Diagnosis Vaginal vault prolapse- Primary Unspecified prolapse of vaginal huynh Rectocele Cystocele, midline Urinary incontinence, urge Urge incontinence Overactive bladder Hypertonicity of bladder Rectal prolapse Preoperative examination Preoperative examination, unspecified [facility] [place] [facility]* Diagnosis 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 Unspecified prolapse of vaginal huynh Rectocele Cystocele, midline Urinary incontinence, urge Urge incontinence Overactive bladder Hypertonicity of bladder Rectal prolapse Preoperative examination Preoperative examination, unspecified [facility] [place] [facility]* Diagnosis Chronic cough Cough Rales Abnormal chest sounds Vaginal vault prolapse Unspecified prolapse of vaginal huynh Rectocele Cystocele, midline Urinary incontinence, urge Urge incontinence Overactive bladder Hypertonicity of bladder Rectal prolapse Preoperative examination Preoperative examination, unspecified [facility] [place] [facility]* Diagnosis Osteopenia, senile Disorder of bone and cartilage, unspecified Vaginal vault prolapse Unspecified prolapse of vaginal huynh Rectocele Cystocele, midline Urinary incontinence, urge Urge incontinence Overactive bladder Hypertonicity of bladder Rectal prolapse Preoperative examination Preoperative examination, unspecified [facility] [place] [facility]* Diagnosis Encounter for screening for malignant neoplasm of colon- Primary Special screening for malignant neoplasms, colon Screening for colon cancer Special screening for malignant neoplasms, colon Vaginal vault prolapse Unspecified prolapse of vaginal huynh Rectocele Cystocele, midline Urinary incontinence, urge Urge incontinence Overactive bladder Hypertonicity of bladder Rectal prolapse Preoperative examination Preoperative examination, unspecified [facility] this [facility] [place] [facility]* Diagnosis Short-term memory loss Memory loss Word finding difficulty Problems with communication (including speech) Vaginal vault prolapse Unspecified prolapse of vaginal huynh Rectocele Cystocele, midline Urinary incontinence, urge Urge incontinence Overactive bladder Hypertonicity of bladder Rectal prolapse Preoperative examination Preoperative examination, unspecified [facility] this [facility] [place] [facility]* Diagnosis Pain due to knee joint prosthesis, initial encounter ([facility])- Primary 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 Unspecified prolapse of vaginal huynh Rectocele Cystocele, midline Urinary incontinence, urge Urge incontinence Overactive bladder Hypertonicity of bladder Rectal prolapse Preoperative examination Preoperative examination, unspecified documented [facility] this [facility] [place] [facility]* Diagnosis Pain due to knee joint prosthesis, subsequent encounter- Primary 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 Unspecified prolapse of vaginal huynh Rectocele Cystocele, midline Urinary incontinence, urge Urge incontinence Overactive bladder Hypertonicity of bladder Rectal prolapse Preoperative examination Preoperative examination, unspecified [facility] this [facility] [place] [facility]* Diagnosis Pancreas cyst- Primary Cyst and pseudocyst of pancreas Cystic mass of pancreas Abnormal MRI of abdomen Nonspecific (abnormal) findings on radiological and other examination of abdominal area, including retroperitoneum Vaginal vault prolapse Unspecified prolapse of vaginal huynh Rectocele Cystocele, midline Urinary incontinence, urge Urge incontinence Overactive bladder Hypertonicity of bladder Rectal prolapse Preoperative examination Preoperative examination, unspecified documented [facility] this [facility] [place] [facility]* Diagnosis Fall, subsequent encounter- Primary Urinary frequency Laceration of left eyebrow, subsequent encounter Vaginal vault prolapse Unspecified prolapse of vaginal huynh Rectocele Cystocele, midline Urinary incontinence, urge Urge incontinence Overactive bladder Hypertonicity of bladder Rectal prolapse Preoperative examination Preoperative examination, unspecified [facility] this [facility] [place] [facility]* Diagnosis Visit for suture removal- Primary Encounter for removal of sutures Vaginal vault prolapse Unspecified prolapse of vaginal huynh Rectocele Cystocele, midline Urinary incontinence, urge Urge incontinence Overactive bladder Hypertonicity of bladder Rectal prolapse Preoperative examination Preoperative examination, unspecified [facility] [place] [facility] Diagnosis Rosacea Vaginal vault prolapse Unspecified prolapse of vaginal huynh Rectocele Cystocele, midline Urinary incontinence, urge Urge incontinence Overactive bladder Hypertonicity of bladder Rectal prolapse Preoperative examination Preoperative examination, unspecified documented [facility] this [facility] [place] [facility]* Diagnosis Hypertension, essential- Primary Unspecified essential hypertension JOSHUA (generalized anxiety disorder) Generalized anxiety disorder Dementia without behavioral disturbance (HCC) Dementia, unspecified, without behavioral disturbance Rectal prolapse Short-term memory loss Memory loss Rectal prolapse documented in this encounter [facility] note* Diagnosis Elevated lipase- Primary Other nonspecific abnormal serum enzyme levels Bloating Flatulence, eructation, and gas pain Upper abdominal pain Abdominal pain, other specified site Nausea Nausea alone documented in this encounter [facility] note* Diagnosis Elevated lipase Other nonspecific abnormal serum enzyme levels Bloating Flatulence, eructation, and gas pain Upper abdominal pain Abdominal pain, other specified site Nausea Nausea alone documented [facility] this [facility] [place] [facility]* Diagnosis Pancreas cyst Cyst and pseudocyst of pancreas Cystic mass of pancreas Abnormal MRI of abdomen Nonspecific (abnormal) findings on radiological and other examination of abdominal area, including retroperitoneum documented in this encounter [facility] note* Diagnosis Abdominal discomfort- Primary Abdominal pain, unspecified site Hypertension, essential Unspecified essential hypertension Dementia without behavioral disturbance (HCC) Dementia, unspecified, without behavioral disturbance Oral lesion Other and unspecified diseases of the oral soft tissues documented in this encounter [facility] note* Diagnosis Persistent cough- Primary Cough Acute cough Decreased lung sounds Abnormal chest sounds documented in this encounter [facility] note* Diagnosis UTI symptoms- Primary Other symptoms involving urinary system documented in this encounter [facility] note* Diagnosis JOSHUA (generalized anxiety disorder)- Primary Generalized anxiety disorder Stress Other psychological or physical stress, not elsewhere classified Abdominal discomfort Abdominal pain, unspecified site RUQ abdominal pain Abdominal pain, right upper quadrant documented in this encounter [facility] note* Diagnosis Dementia without behavioral disturbance (HCC)- Primary Dementia, unspecified, without behavioral disturbance JOSHUA (generalized anxiety disorder) Generalized anxiety disorder Abdominal discomfort Abdominal pain, unspecified site Hypertension, essential Unspecified essential hypertension documented in this encounter [facility] note* Diagnosis Pre-op evaluation- Primary Preoperative examination, unspecified Primary osteoarthritis of left knee Primary localized osteoarthrosis, lower leg Urinary frequency Hypertension, essential Unspecified essential hypertension Chronic obstructive pulmonary disease, unspecified COPD type ([facility]) Hyperlipidemia, mixed Mixed hyperlipidemia Irritable bowel syndrome with both constipation and diarrhea Adjustment disorder with anxiety 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 Urge incontinence Situational depression Adjustment disorder with depressed mood Status post total right knee replacement JOSHUA (generalized anxiety disorder)- Primary Generalized anxiety disorder Bee sting, accidental or unintentional, initial encounter Osteoarthritis of spine with radiculopathy, cervical region Radiculopathy, cervical region Brachial neuritis or radiculitis nos Hypertension, essential Unspecified essential hypertension Hyperlipidemia, mixed Mixed hyperlipidemia Dementia without behavioral disturbance (HCC) Dementia, unspecified, without behavioral disturbance [facility] [place] [facility]* Diagnosis Pre-op evaluation- Primary Preoperative examination, unspecified Primary osteoarthritis of left knee Primary localized osteoarthrosis, lower leg Urinary frequency Hypertension, essential Unspecified essential hypertension Chronic obstructive pulmonary disease, unspecified COPD type (HCC) Hyperlipidemia, mixed Mixed hyperlipidemia Irritable bowel syndrome with both constipation and diarrhea Adjustment disorder with anxiety 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 Urge incontinence Situational depression Adjustment disorder with depressed mood Status post total right knee replacement Acute cough- Primary Exposure to COVID-19 virus documented [facility] this [facility] [place] [facility]* Diagnosis Pre-op evaluation- Primary Preoperative examination, unspecified Primary osteoarthritis of left knee Primary localized osteoarthrosis, lower leg Urinary frequency Hypertension, essential Unspecified essential hypertension Chronic obstructive pulmonary disease, unspecified COPD type (HCC) Hyperlipidemia, mixed Mixed hyperlipidemia Irritable bowel syndrome with both constipation and diarrhea Adjustment disorder with anxiety 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 Urge incontinence Situational depression Adjustment disorder with depressed mood Status post total right knee replacement Hypertension, essential Unspecified essential hypertension [facility] this [facility] [place] [facility]* Diagnosis Pre-op evaluation- Primary Preoperative examination, unspecified Primary osteoarthritis of left knee Primary localized osteoarthrosis, lower leg Urinary frequency Hypertension, essential Unspecified essential hypertension Chronic obstructive pulmonary disease, unspecified COPD type (HCC) Hyperlipidemia, mixed Mixed hyperlipidemia Irritable bowel syndrome with both constipation and diarrhea Adjustment disorder with anxiety 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 Urge incontinence Situational depression Adjustment disorder with depressed mood Status post total right knee replacement Acute cough Persistent cough Cough Decreased lung sounds Abnormal chest sounds [facility] Diagnosis Pre-op evaluation- Primary Preoperative examination, unspecified Primary osteoarthritis of left knee Primary localized osteoarthrosis, lower leg Urinary frequency Hypertension, essential Unspecified essential hypertension Chronic obstructive pulmonary disease, unspecified COPD type (HCC) Hyperlipidemia, mixed Mixed hyperlipidemia Irritable bowel syndrome with both constipation and diarrhea Adjustment disorder with anxiety 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 Urge incontinence Situational depression Adjustment disorder with depressed mood Status post total right knee replacement Pancreatic cyst- Primary Cyst and pseudocyst of pancreas documented [facility] [place] [facility]* Diagnosis Pre-op evaluation- Primary Preoperative examination, unspecified Primary osteoarthritis of left knee Primary localized osteoarthrosis, lower leg Urinary frequency Hypertension, essential Unspecified essential hypertension Chronic obstructive pulmonary disease, unspecified COPD type (HCC) Hyperlipidemia, mixed Mixed hyperlipidemia Irritable bowel syndrome with both constipation and diarrhea Adjustment disorder with anxiety 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 Urge incontinence Situational depression Adjustment disorder with depressed mood Status post total right knee replacement Left knee pain, unspecified chronicity documented [facility] this [facility] [place] [facility]* Diagnosis Pre-op evaluation- Primary Preoperative examination, unspecified Primary osteoarthritis of left knee Primary localized osteoarthrosis, lower leg Urinary frequency Hypertension, essential Unspecified essential hypertension Chronic obstructive pulmonary disease, unspecified COPD type (HCC) Hyperlipidemia, mixed Mixed hyperlipidemia Irritable bowel syndrome with both constipation and diarrhea Adjustment disorder with anxiety 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 Urge incontinence Situational depression Adjustment disorder with depressed mood Status post total right knee replacement Acute cough [facility] [place] [facility]* Diagnosis Pre-op evaluation- Primary Preoperative examination, unspecified Primary osteoarthritis of left knee Primary localized osteoarthrosis, lower leg Urinary frequency Hypertension, essential Unspecified essential hypertension Chronic obstructive pulmonary disease, unspecified COPD type (HCC) Hyperlipidemia, mixed Mixed hyperlipidemia Irritable bowel syndrome with both constipation and diarrhea Adjustment disorder with anxiety 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 Urge incontinence Situational depression Adjustment disorder with depressed mood Status post total right knee replacement Pain in lateral portion of right ankle- Primary [facility] [place] [facility]* Diagnosis Pre-op evaluation- Primary Preoperative examination, unspecified Primary osteoarthritis of left knee Primary localized osteoarthrosis, lower leg Urinary frequency Hypertension, essential Unspecified essential hypertension Chronic obstructive pulmonary disease, unspecified COPD type (HCC) Hyperlipidemia, mixed Mixed hyperlipidemia Irritable bowel syndrome with both constipation and diarrhea Adjustment disorder with anxiety 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 Urge incontinence Situational depression Adjustment disorder with depressed mood Status post total right knee replacement Pain in lateral portion of right ankle documented in this encounter [facility] note* Diagnosis Pre-op evaluation- Primary Preoperative examination, unspecified Primary osteoarthritis of left knee Primary localized osteoarthrosis, lower leg Urinary frequency Hypertension, essential Unspecified essential hypertension Chronic obstructive pulmonary disease, unspecified COPD type (HCC) Hyperlipidemia, mixed Mixed hyperlipidemia Irritable bowel syndrome with both constipation and diarrhea Adjustment disorder with anxiety 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 Urge incontinence Situational depression Adjustment disorder with depressed mood Status post total right knee replacement Flank pain Abdominal pain, unspecified site [facility] Diagnosis Pre-op evaluation- Primary Preoperative examination, unspecified Primary osteoarthritis of left knee Primary localized osteoarthrosis, lower leg Urinary frequency Hypertension, essential Unspecified essential hypertension Chronic obstructive pulmonary disease, unspecified COPD type (HCC) Hyperlipidemia, mixed Mixed hyperlipidemia Irritable bowel syndrome with both constipation and diarrhea Adjustment disorder with anxiety 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 Urge incontinence Situational depression Adjustment disorder with depressed mood Status post total right knee replacement Foot pain, left Pain in limb Erythema of foot Unspecified erythematous condition documented [facility] this [facility] [place] [facility]* Diagnosis Pre-op evaluation- Primary Preoperative examination, unspecified Primary osteoarthritis of left knee Primary localized osteoarthrosis, lower leg Urinary frequency Hypertension, essential Unspecified essential hypertension Chronic obstructive pulmonary disease, unspecified COPD type (HCC) Hyperlipidemia, mixed Mixed hyperlipidemia Irritable bowel syndrome with both constipation and diarrhea Adjustment disorder with anxiety 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 Urge incontinence Situational depression Adjustment disorder with depressed mood Status post total right knee replacement Inflammatory arthritis Unspecified inflammatory polyarthropathy Pain in joint, multiple sites [facility] this [facility] [place] [facility]* Diagnosis Pre-op evaluation- Primary Preoperative examination, unspecified Primary osteoarthritis of left knee Primary localized osteoarthrosis, lower leg Urinary frequency Hypertension, essential Unspecified essential hypertension Chronic obstructive pulmonary disease, unspecified COPD type (HCC) Hyperlipidemia, mixed Mixed hyperlipidemia Irritable bowel syndrome with both constipation and diarrhea Adjustment disorder with anxiety 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 Urge incontinence Situational depression Adjustment disorder with depressed mood Status post total right knee replacement Injury of left hip, initial encounter Hip pain Pain in joint, pelvic region and thigh Post-COVID chronic cough [facility] Diagnosis Pre-op evaluation- Primary Preoperative examination, unspecified Primary osteoarthritis of left knee Primary localized osteoarthrosis, lower leg Urinary frequency Hypertension, essential Unspecified essential hypertension Chronic obstructive pulmonary disease, unspecified COPD type (HCC) Hyperlipidemia, mixed Mixed hyperlipidemia Irritable bowel syndrome with both constipation and diarrhea Adjustment disorder with anxiety 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 Urge incontinence Situational depression Adjustment disorder with depressed mood Status post total right knee replacement Psoriatic arthritis (HCC)- Primary Psoriatic arthropathy Psoriasis Other psoriasis [facility] [place] [facility]* Diagnosis Pre-op evaluation- Primary Preoperative examination, unspecified Primary osteoarthritis of left knee Primary localized osteoarthrosis, lower leg Urinary frequency Hypertension, essential Unspecified essential hypertension Chronic obstructive pulmonary disease, unspecified COPD type (HCC) Hyperlipidemia, mixed Mixed hyperlipidemia Irritable bowel syndrome with both constipation and diarrhea Adjustment disorder with anxiety 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 Urge incontinence Situational depression Adjustment disorder with depressed mood Status post total right knee replacement Dry cough Cough [facility] this [facility] [place] [facility]* Diagnosis Pre-op evaluation- Primary Preoperative examination, unspecified Primary osteoarthritis of left knee Primary localized osteoarthrosis, lower leg Urinary frequency Hypertension, essential Unspecified essential hypertension Chronic obstructive pulmonary disease, unspecified COPD type (HCC) Hyperlipidemia, mixed Mixed hyperlipidemia Irritable bowel syndrome with both constipation and diarrhea Adjustment disorder with anxiety 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 Urge incontinence Situational depression Adjustment disorder with depressed mood Status post total right knee replacement Urinary frequency- Primary Skin infection Unspecified local infection of skin and subcutaneous tissue [facility] [place] [facility]* Diagnosis Pre-op evaluation- Primary Preoperative examination, unspecified Primary osteoarthritis of left knee Primary localized osteoarthrosis, lower leg Urinary frequency Hypertension, essential Unspecified essential hypertension Chronic obstructive pulmonary disease, unspecified COPD type (HCC) Hyperlipidemia, mixed Mixed hyperlipidemia Irritable bowel syndrome with both constipation and diarrhea Adjustment disorder with anxiety 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 Urge incontinence Situational depression Adjustment disorder with depressed mood Status post total right knee replacement Bee sting, accidental or unintentional, initial encounter [facility] [place] [facility]* Diagnosis Pre-op evaluation- Primary Preoperative examination, unspecified Primary osteoarthritis of left knee Primary localized osteoarthrosis, lower leg Urinary frequency Hypertension, essential Unspecified essential hypertension Chronic obstructive pulmonary disease, unspecified COPD type (HCC) Hyperlipidemia, mixed Mixed hyperlipidemia Irritable bowel syndrome with both constipation and diarrhea Adjustment disorder with anxiety 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 Urge incontinence Situational depression Adjustment disorder with depressed mood Status post total right knee replacement Urination frequency- Primary Urinary frequency Rash Rash and other nonspecific skin eruption [facility] evaluation- Primary Preoperative examination, unspecified Primary osteoarthritis of left knee Primary localized osteoarthrosis, lower leg Urinary frequency Hypertension, essential Unspecified essential hypertension Chronic obstructive pulmonary disease, unspecified COPD type (HCC) Hyperlipidemia, mixed Mixed hyperlipidemia Irritable bowel syndrome with both constipation and diarrhea Adjustment disorder with anxiety 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 Urge incontinence Situational depression Adjustment disorder with depressed mood Status post total right knee replacement Bee sting, accidental or unintentional, initial encounter [facility] Pre-op evaluation- Primary Preoperative examination, unspecified Primary osteoarthritis of left knee Primary localized osteoarthrosis, lower leg Urinary frequency Hypertension, essential Unspecified essential hypertension Chronic obstructive pulmonary disease, unspecified COPD type (HCC) Hyperlipidemia, mixed Mixed hyperlipidemia Irritable bowel syndrome with both constipation and diarrhea Adjustment disorder with anxiety 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 Urge incontinence Situational depression Adjustment disorder with depressed mood Status post total right knee replacement Urinary frequency- Primary Psoriatic arthritis (HCC) Psoriatic arthropathy Open wound of right heel, subsequent encounter [facility] Pre-op evaluation- Primary Preoperative examination, unspecified Primary osteoarthritis of left knee Primary localized osteoarthrosis, lower leg Urinary frequency Hypertension, essential Unspecified essential hypertension Chronic obstructive pulmonary disease, unspecified COPD type (HCC) Hyperlipidemia, mixed Mixed hyperlipidemia Irritable bowel syndrome with both constipation and diarrhea Adjustment disorder with anxiety 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 Urge incontinence Situational depression Adjustment disorder with depressed mood Status post total right knee replacement Fungal nail infection- Primary Dermatophytosis of nail Psoriatic arthritis (HCC) Psoriatic arthropathy Hypertension, essential Unspecified essential hypertension JOSHUA (generalized anxiety disorder) Generalized anxiety disorder Dementia without behavioral disturbance (HCC) Dementia, unspecified, without behavioral disturbance Abdominal discomfort Abdominal pain, unspecified site [facility] Pre-op evaluation- Primary Preoperative examination, unspecified Primary osteoarthritis of left knee Primary localized osteoarthrosis, lower leg Urinary frequency Hypertension, essential Unspecified essential hypertension Chronic obstructive pulmonary disease, unspecified COPD type (HCC) Hyperlipidemia, mixed Mixed hyperlipidemia Irritable bowel syndrome with both constipation and diarrhea Adjustment disorder with anxiety 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 Urge incontinence Situational depression Adjustment disorder with depressed mood Status post total right knee replacement Mouth sore- Primary Other and unspecified diseases of the oral soft tissues [facility] [place] [facility] Diagnosis Pre-op evaluation- Primary Preoperative examination, unspecified Primary osteoarthritis of left knee Primary localized osteoarthrosis, lower leg Urinary frequency Hypertension, essential Unspecified essential hypertension Chronic obstructive pulmonary disease, unspecified COPD type (HCC) Hyperlipidemia, mixed Mixed hyperlipidemia Irritable bowel syndrome with both constipation and diarrhea Adjustment disorder with anxiety 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 Urge incontinence Situational depression Adjustment disorder with depressed mood Status post total right knee replacement Acute left-sided low back pain without sciatica- Primary JOSHUA (generalized anxiety disorder) Generalized anxiety disorder [facility] [place] [facility] Diagnosis Pre-op evaluation- Primary Preoperative examination, unspecified Primary osteoarthritis of left knee Primary localized osteoarthrosis, lower leg Urinary frequency Hypertension, essential Unspecified essential hypertension Chronic obstructive pulmonary disease, unspecified COPD type (HCC) Hyperlipidemia, mixed Mixed hyperlipidemia Irritable bowel syndrome with both constipation and diarrhea Adjustment disorder with anxiety 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 Urge incontinence Situational depression Adjustment disorder with depressed mood Status post total right knee replacement Dementia without behavioral disturbance (HCC) Dementia, unspecified, without behavioral disturbance [facility] [place] [facility] Diagnosis Pre-op evaluation- Primary Preoperative examination, unspecified Primary osteoarthritis of left knee Primary localized osteoarthrosis, lower leg Urinary frequency Hypertension, essential Unspecified essential hypertension Chronic obstructive pulmonary disease, unspecified COPD type (HCC) Hyperlipidemia, mixed Mixed hyperlipidemia Irritable bowel syndrome with both constipation and diarrhea Adjustment disorder with anxiety 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 Urge incontinence Situational depression Adjustment disorder with depressed mood Status post total right knee replacement Acute left-sided low back pain without sciatica [facility] [place] [facility] Diagnosis Pre-op evaluation- Primary Preoperative examination, unspecified Primary osteoarthritis of left knee Primary localized osteoarthrosis, lower leg Urinary frequency Hypertension, essential Unspecified essential hypertension Chronic obstructive pulmonary disease, unspecified COPD type (HCC) Hyperlipidemia, mixed Mixed hyperlipidemia Irritable bowel syndrome with both constipation and diarrhea Adjustment disorder with anxiety 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 Urge incontinence Situational depression Adjustment disorder with depressed mood Status post total right knee replacement Productive cough- Primary Cough [facility] [place] [facility]* Diagnosis Pre-op evaluation- Primary Preoperative examination, unspecified Primary osteoarthritis of left knee Primary localized osteoarthrosis, lower leg Urinary frequency Hypertension, essential Unspecified essential hypertension Chronic obstructive pulmonary disease, unspecified COPD type (HCC) Hyperlipidemia, mixed Mixed hyperlipidemia Irritable bowel syndrome with both constipation and diarrhea Adjustment disorder with anxiety 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 Urge incontinence Situational depression Adjustment disorder with depressed mood Status post total right knee replacement Urinary frequency- Primary Acute cough [facility] [place] [facility] Diagnosis Pre-op evaluation- Primary Preoperative examination, unspecified Primary osteoarthritis of left knee Primary localized osteoarthrosis, lower leg Urinary frequency Hypertension, essential Unspecified essential hypertension Chronic obstructive pulmonary disease, unspecified COPD type (HCC) Hyperlipidemia, mixed Mixed hyperlipidemia Irritable bowel syndrome with both constipation and diarrhea Adjustment disorder with anxiety 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 Urge incontinence Situational depression Adjustment disorder with depressed mood Status post total right knee replacement Urinary frequency- Primary [facility] [place] [facility] Diagnosis Pre-op evaluation- Primary Preoperative examination, unspecified Primary osteoarthritis of left knee Primary localized osteoarthrosis, lower leg Urinary frequency Hypertension, essential Unspecified essential hypertension Chronic obstructive pulmonary disease, unspecified COPD type (HCC) Hyperlipidemia, mixed Mixed hyperlipidemia Irritable bowel syndrome with both constipation and diarrhea Adjustment disorder with anxiety 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 Urge incontinence Situational depression Adjustment disorder with depressed mood Status post total right knee replacement Chronic left-sided low back pain without sciatica [facility] [place] [facility]* Diagnosis Pre-op evaluation- Primary Preoperative examination, unspecified Primary osteoarthritis of left knee Primary localized osteoarthrosis, lower leg Urinary frequency Hypertension, essential Unspecified essential hypertension Chronic obstructive pulmonary disease, unspecified COPD type (HCC) Hyperlipidemia, mixed Mixed hyperlipidemia Irritable bowel syndrome with both constipation and diarrhea Adjustment disorder with anxiety 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 Urge incontinence Situational depression Adjustment disorder with depressed mood Status post total right knee replacement Hypertension, essential Unspecified essential hypertension [facility] [place] [facility]* Diagnosis Pre-op evaluation- Primary Preoperative examination, unspecified Primary osteoarthritis of left knee Primary localized osteoarthrosis, lower leg Urinary frequency Hypertension, essential Unspecified essential hypertension Chronic obstructive pulmonary disease, unspecified COPD type (HCC) Hyperlipidemia, mixed Mixed hyperlipidemia Irritable bowel syndrome with both constipation and diarrhea Adjustment disorder with anxiety 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 Urge incontinence Situational depression Adjustment disorder with depressed mood Status post total right knee replacement Chronic left-sided low back pain without sciatica- Primary JOSHUA (generalized anxiety disorder) Generalized anxiety disorder Acute left-sided low back pain without sciatica Nausea and vomiting, unspecified vomiting type Pancreatic cyst (HCC) Cyst and pseudocyst of pancreas Left medial tibial stress syndrome, initial encounter [facility] [place] [facility]* Diagnosis Pre-op evaluation- Primary Preoperative examination, unspecified Primary osteoarthritis of left knee Primary localized osteoarthrosis, lower leg Urinary frequency Hypertension, essential Unspecified essential hypertension Chronic obstructive pulmonary disease, unspecified COPD type (HCC) Hyperlipidemia, mixed Mixed hyperlipidemia Irritable bowel syndrome with both constipation and diarrhea Adjustment disorder with anxiety 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 Urge incontinence Situational depression Adjustment disorder with depressed mood Status post total right knee replacement Acute left-sided low back pain without sciatica- Primary Chronic left-sided low back pain without sciatica Degeneration of intervertebral disc of lumbar region, unspecified whether pain present DDD (degenerative disc disease), thoracic Degeneration of thoracic or thoracolumbar intervertebral disc [facility] [place] [facility]* Diagnosis Pre-op evaluation- Primary Preoperative examination, unspecified Primary osteoarthritis of left knee Primary localized osteoarthrosis, lower leg Urinary frequency Hypertension, essential Unspecified essential hypertension Chronic obstructive pulmonary disease, unspecified COPD type (HCC) Hyperlipidemia, mixed Mixed hyperlipidemia Irritable bowel syndrome with both constipation and diarrhea Adjustment disorder with anxiety 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 Urge incontinence Situational depression Adjustment disorder with depressed mood Status post total right knee replacement Hypertension, essential- Primary Unspecified essential hypertension Abnormal findings in stool Nonspecific abnormal finding in stool contents JOSHUA (generalized anxiety disorder) Generalized anxiety disorder Chronic left-sided low back pain without sciatica Dementia without behavioral disturbance (HCC) Dementia, unspecified, without behavioral disturbance Hyperlipidemia, mixed Mixed hyperlipidemia Epigastric abdominal pain Abdominal pain, epigastric IFG (impaired fasting glucose) Impaired fasting glucose Psoriatic arthritis (HCC) Psoriatic arthropathy [facility] [place] [facility]* Diagnosis Pre-op evaluation- Primary Preoperative examination, unspecified Primary osteoarthritis of left knee Primary localized osteoarthrosis, lower leg Urinary frequency Hypertension, essential Unspecified essential hypertension Chronic obstructive pulmonary disease, unspecified COPD type (HCC) Hyperlipidemia, mixed Mixed hyperlipidemia Irritable bowel syndrome with both constipation and diarrhea Adjustment disorder with anxiety 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 Urge incontinence Situational depression Adjustment disorder with depressed mood Status post total right knee replacement Sprain of ligament of right ankle, initial encounter- Primary documented in this encounter [facility] note* Diagnosis Pre-op evaluation- Primary Preoperative examination, unspecified Primary osteoarthritis of left knee Primary localized osteoarthrosis, lower leg Urinary frequency Hypertension, essential Unspecified essential hypertension Chronic obstructive pulmonary disease, unspecified COPD type (HCC) Hyperlipidemia, mixed Mixed hyperlipidemia Irritable bowel syndrome with both constipation and diarrhea Adjustment disorder with anxiety 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 Urge incontinence Situational depression Adjustment disorder with depressed mood Status post total right knee replacement Spinal stenosis of lumbar region, unspecified whether neurogenic claudication present documented in this encounter [facility] note* Diagnosis Pre-op evaluation- Primary Preoperative examination, unspecified Primary osteoarthritis of left knee Primary localized osteoarthrosis, lower leg Urinary frequency Hypertension, essential Unspecified essential hypertension Chronic obstructive pulmonary disease, unspecified COPD type (HCC) Hyperlipidemia, mixed Mixed hyperlipidemia Irritable bowel syndrome with both constipation and diarrhea Adjustment disorder with anxiety 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 Urge incontinence Situational depression Adjustment disorder with depressed mood Status post total right knee replacement Spinal stenosis of lumbar region, unspecified whether neurogenic claudication present- Primary Degeneration of intervertebral disc of lumbosacral region with discogenic back pain and lower extremity pain documented in this encounter [facility] note* Diagnosis Pre-op evaluation- Primary Preoperative examination, unspecified Primary osteoarthritis of left knee Primary localized osteoarthrosis, lower leg Urinary frequency Hypertension, essential Unspecified essential hypertension Chronic obstructive pulmonary disease, unspecified COPD type (HCC) Hyperlipidemia, mixed Mixed hyperlipidemia Irritable bowel syndrome with both constipation and diarrhea Adjustment disorder with anxiety 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 Urge incontinence Situational depression Adjustment disorder with depressed mood Status post total right knee replacement Insect bite of face, initial encounter- Primary documented in this encounter [facility] for referral (narrative)* Diagnostic Procedure Only (Routine) - Closed Specialty Diagnoses / Procedures Referred By Clary t Referred To Contact XR IMAGING Diagnoses Flank pain Procedures XR THORACIC LIMITED 2V AP/LAT RADEX SPINE THORACIC 2 VIEWS Charissa Jauregui, PLEASURE CRAFT SAILOR.SHIP KEEPER [address] [place] [address] Xr Imaging Referral ID Status Reason Start Date Expiration Date V isits Requested Visits Authorized [id number] Closed Auto-Generate d Referral 06/09/2021 07/09/2022 1 1 * Diagnostic Procedure Only (Routine) - Closed Specialty Diagnoses / Procedures Referred By Contac t Referred To Contact XR IMAGING Diagnoses Flank pain Procedures XR RIBS/CHEST 3V AP RIB/OBLS/CXR LEFT RADEX RIBS UNI W/POSTEROANT CH MINIMUM 3 VIEWS Charissa Jauregui APRN.SHIP KEEPER [address] [id number] Xr Imaging Referral ID Status Reason Start Date Expiration Date V isits Requested Visits Authorized [id number] Closed Auto-Generate d Referral 06/09/2021 07/09/2022 1 1 [facility] for referral (narrative)* Diagnostic Procedure Only (Routine) - Pending Review Specialty Diagnoses / Procedures Referred By Contac t Referred To Contact XR IMAGING Diagnoses Pain in both knees, unspecified chronicity Procedures XR KNEE POST OP 3V AP/LAT/MERCHANT BILATERAL RADIOLOGIC EXAMINATION KNEE 3 VIEWS Glenna Bhandari PA-C [address] [place] [address] Xr Imaging Referral ID Status Reason Start Date Expiration Date Visits Requested Visits Authorized [id number] Pending Review Auto-Generat ed Referral 06/23/2021 07/23/2022 1 1 [facility] for referral (narrative)* Diagnostic Procedure Only (Routine) - Closed Specialty Diagnoses / Procedures Referred By Contac t Referred To Contact XR IMAGING Diagnoses Pain in both knees, unspecified chronicity Procedures XR KNEE POST OP 3V AP/LAT/MERCHANT BILATERAL RADIOLOGIC EXAMINATION KNEE 3 VIEWS Glenna Bhandari PA-C [address] [place] [address] Xr Imaging Referral ID Status Reason Start Date Expiration Date V isits Requested Visits Authorized [id number] Closed Auto-Generate d Referral 06/23/2021 07/23/2022 1 1 [facility] for referral (narrative)* Diagnostic Procedure Only (Routine) - Closed Specialty Diagnoses / Procedures Referred By Contac t Referred To Contact XR IMAGING Diagnoses Foot pain, left Erythema of foot Procedures XR FOOT GENERAL 3V AP/LAT/OBL LEFT RADEX FOOT COMPLETE MINIMUM 3 VIEWS Angeline Monterroso APRN.CNP [address] [place] [address] Xr Imaging Referral ID Status Reason Start Date Expiration Date V isits Requested Visits Authorized [id number] Closed Auto-Generate d Referral 07/20/2021 08/19/2022 1 1 [facility] for referral (narrative)* Diagnostic Procedure Only (Routine) - Closed Specialty Diagnoses / Procedures Referred By Contac t Referred To Contact XR IMAGING Diagnoses Repetitive stress injury Procedures XR FOOT GENERAL 3V AP/LAT/OBL LEFT RADEX FOOT COMPLETE MINIMUM 3 VIEWS Margaret [place] [address] Xr Imaging Referral ID Status Reason Start Date Expiration Date V isits Requested Visits Authorized [id number] Closed Auto-Generate d Referral 08/02/2021 09/01/2022 1 1 [facility] for referral (narrative)* Diagnostic Procedure Only (Routine) - Closed Specialty Diagnoses / Procedures Referred By Contac t Referred To Contact XR IMAGING Diagnoses Repetitive stress injury Procedures XR FOOT GENERAL 3V AP/LAT/OBL LEFT RADEX FOOT COMPLETE MINIMUM 3 VIEWS Margaret Bacon [address] [place] [address] Xr Imaging Referral ID Status Reason Start Date Expiration Date V isits Requested Visits Authorized [id number] Closed Auto-Generate d Referral 08/02/2021 09/01/2022 1 1 T [facility] for referral (narrative)* Diagnostic Procedure Only (Routine) - Closed Specialty Diagnoses / Procedures Referred By Contac t Referred To Contact XR IMAGING Diagnoses Status post total left knee replacement Status post total right knee replacement Procedures XR KNEE POST OP 3V AP/LAT/MERCHANT BILATERAL RADIOLOGIC EXAMINATION KNEE 3 VIEWS Michael Del Castillo PA-C [address] [place] [address] Xr Imaging Referral ID Status Reason Start Date Expiration Date V isits Requested Visits Authorized [id number] Closed Auto-Generate d Referral 12/22/2021 01/21/2023 1 1 [facility] for referral (narrative)* Diagnostic Procedure Only (Routine) - Closed Specialty Diagnoses / Procedures Referred By Contac t Referred To Contact XR IMAGING Diagnoses Status post total left knee replacement Status post total right knee replacement Procedures XR KNEE POST OP 3V AP/LAT/MERCHANT BILATERAL RADIOLOGIC EXAMINATION KNEE 3 VIEWS Michael Del Castillo PA-C [address] [place] [address] Xr Imaging Referral ID Status Reason Start Date Expiration Date V isits Requested Visits Authorized [id number] Closed Auto-Generate d Referral 12/22/2021 01/21/2023 1 1 [facility] for referral (narrative)* Diagnostic Procedure Only (Routine) - Closed Specialty Diagnoses / Procedures Referred By Contac t Referred To Contact XR IMAGING Diagnoses Rectocele Enterocele Rectal prolapse Procedures XR DEFECOGRAPHY RADIOLOGIC EXAM COLON SINGLE CONTRAST STUDY Yi Gonsalves, PARMJIT.SHIP KEEPER [address] [place] [address] Xr Imaging Referral ID Status Reason Start Date Expiration Date V isits Requested Visits Authorized [id number] Closed Auto-Generate d Referral 12/06/2021 01/05/2023 1 1 [facility] for referral (narrative)* Outpatient Procedure (Routine) - Authorized Specialty Diagnoses / Procedures Referred By Contac t Referred To Contact [facility] Diagnoses Screening for colon cancer Procedures COLONOSCOPY SCREENING COLONOSCOPY FLX DX W/COLLJ SPEC WHEN PFRMD Mellisa Villalobos DO [address] [id number] [place] [id number] Referral ID Status Reason Start Date Expiration Date Visits Requested Visits Authorized [id number] Authorized Auto-Generat ed Referral 04/16/2022 04/16/2023 1 1 [facility] for referral (narrative)* Outpatient Procedure (Routine) - Pending Review Specialty Diagnoses / Procedures Referred By Contac t Referred To Contact [facility] Diagnoses Urinary incontinence, urge Preoperative examination Procedures URODYNAMICS WHI COMPLX CYSTOMETRO W/VOID PRESS&URETHRAL PROFILE Nel Zayas MD [address] [phone] [facility] [address] [place], [place] [id number] Referral ID Status Reason Start Date Expiration Date Visits Requested Visits Authorized [id number] Pending Review Auto-Generat ed Referral 04/17/2022 04/17/2023 1 1 [facility] for referral (narrative)* Diagnostic Procedure Only (Routine) - Authorized Specialty Diagnoses / Procedures Referred By Contac t Referred To Contact CT IMAGING Diagnoses Chronic cough Rales Procedures CT CHEST WO IVCON DIAGNOSTIC COMPUTED TOMOGRAPHY THORAX W/O CNTRST Edenilson Nicholson L, DO [address] [place] [address] [place] [address] Referral ID Status Reason Start Date Expiration Date V isits Requested Visits Authorized [id number] Authorized 11/14/2022 12/29/2022 1 1 [facility] for referral (narrative)* Outpatient Procedure (Routine) - Pending Review Specialty Diagnoses / Procedures Referred By Contac t Referred To Contact [facility] Diagnoses Vaginal vault prolapse Rectocele Cystocele, midline Urinary incontinence, urge Overactive bladder Rectal prolapse Preoperative examination Procedures URODYNAMICS WHI COMPLX CYSTOMETRO W/VOID PRESS&URETHRAL PROFILE Nel Zayas MD [id number] [place] [id number] Referral ID Status Reason Start Date Expiration Date Visits Requested Visits Authorized [id number] Pending Review Auto-Generat ed Referral 11/26/2022 11/26/2023 1 1 [facility] for referral (narrative)* Diagnostic Procedure Only (Routine) - Closed Specialty Diagnoses / Procedures Referred By Contac t Referred To Contact CT IMAGING Diagnoses Chronic cough Rales Procedures CT CHEST WO IVCON DIAGNOSTIC COMPUTED TOMOGRAPHY THORAX W/O CNTRST Edenilson Nicholson DO [address] [place] [address] Ct Imaging [facility] Referral ID Status Reason Start Date Expiration Date Visits Re quested Visits Authorized [id number] Closed 11/14/2022 12/29/2022 1 1 [facility] for referral (narrative)* Outpatient Procedure (Routine) - Closed Specialty Diagnoses / Procedures Referred By Contac t Referred To Contact [facility] Diagnoses Screening for colon cancer Procedures COLONOSCOPY SCREENING COLONOSCOPY FLX DX W/COLLJ SPEC WHEN PFRMD Mellisa Villalobos DO [address] [place] [address] [address] [place] [address] Referral ID Status Reason Start Date Expiration Date V isits Requested Visits Authorized [id number] Closed Auto-Generate d Referral 04/16/2022 04/16/2023 1 1 [facility] for referral (narrative)* Diagnostic Procedure Only (Urgent) - Closed Specialty Diagnoses / Procedures Referred By Contac t Referred To Contact US IMAGING Diagnoses Elevated lipase Bloating Upper abdominal pain Nausea Procedures US ABD RIGHT UPPER QUADRANT US ABDOMINAL REAL TIME W/IMAGE LIMITED Angeline Monterroso APRN.SHIP KEEPER [address] [place] [address] [place] [address] Referral ID Status Reason Start Date Expiration Date V isits Requested Visits Authorized [id number] Closed Auto-Generate d Referral 05/08/2023 06/06/2024 1 1 [facility] for referral (narrative)* Diagnostic Procedure Only (Urgent) - Closed Specialty Diagnoses / Procedures Referred By Contac t Referred To Contact US IMAGING Diagnoses Elevated lipase Bloating Upper abdominal pain Nausea Procedures US ABD RIGHT UPPER QUADRANT US ABDOMINAL REAL TIME W/IMAGE LIMITED Angeline Monterroso APRN.SHIP KEEPER [address] [place] [address] [place] [address] Referral ID Status Reason Start Date Expiration Date V isits Requested Visits Authorized [id number] Closed Auto-Generate d Referral 05/08/2023 06/06/2024 1 1 [facility] for referral (narrative)* Outpatient Procedure (Routine) - New Request Specialty Diagnoses / Procedures Referred By Contac t Referred To Contact [facility] Diagnoses Pancreatic cyst Procedures EGD - THERAPEUTIC, EUS, OR TUBE INTERVENTIONS EGD INTRMURAL US NEEDLE ASPIRATE/[place] [address] [place] [address] [facility] [address] [place] [address] Referral ID Status Reason Start Date Expiration Date Visits Requested Visits Authorized [id number] New Request Auto-Generat ed Referral 11/13/2023 11/12/2024 1 1 [facility] for referral (narrative)* Diagnostic Procedure Only (Routine) - Closed Specialty Diagnoses / Procedures Referred By Contac t Referred To Contact XR IMAGING Diagnoses Left knee pain, unspecified chronicity Procedures XR KNEE POST OP 3V AP/LAT/MERCHANT LEFT RADIOLOGIC EXAMINATION KNEE 3 VIEWS Michael Del Castillo PA-C [address] [place] [address] [place] [address] Referral ID Status Reason Start Date Expiration Date V isits Requested Visits Authorized [id number] Closed Auto-Generate d Referral 01/10/2023 02/09/2024 1 1 [facility] for referral (narrative)* Diagnostic Procedure Only (Routine) - Closed Specialty Diagnoses / Procedures Referred By Contac t Referred To Contact XR IMAGING Diagnoses Pain in lateral portion of right ankle Procedures XR ANKLE GENERAL 3V AP/LAT/OBL RIGHT RADEX ANKLE COMPLETE MINIMUM 3 VIEWS Kinga Goldberg, PLEASURE CRAFT SAILOR.SHIP KEEPER [address] [place] [address] [place] [address] Referral ID Status Reason Start Date Expiration Date V isits Requested Visits Authorized [id number] Closed Auto-Generate d Referral 11/25/2023 12/24/2024 1 1 [facility] for referral (narrative)* Diagnostic Procedure Only (Routine) - Closed Specialty Diagnoses / Procedures Referred By Contac t Referred To Contact XR IMAGING Diagnoses Flank pain Procedures XR THORACIC LIMITED 2V AP/LAT RADEX SPINE THORACIC 2 VIEWS Charissa Jauregui, PLEASURE CRAFT SAILOR.SHIP KEEPER [address] [place] [address] [place] [address] Referral ID Status Reason Start Date Expiration Date V isits Requested Visits Authorized [id number] Closed Auto-Generate d Referral 06/09/2021 07/09/2022 1 1 * Diagnostic Procedure Only (Routine) - Closed Specialty Diagnoses / Procedures Referred By Contac t Referred To Contact XR IMAGING Diagnoses Flank pain Procedures XR RIBS/CHEST 3V AP RIB/OBLS/CXR LEFT RADEX RIBS UNI W/POSTEROANT CH MINIMUM 3 VIEWS Charissa Jauregui APRN.SHIP KEEPER [address] [place] [address] [place] [address] Referral ID Status Reason Start Date Expiration Date V isits Requested Visits Authorized [id number] Closed Auto-Generate d Referral 06/09/2021 07/09/2022 1 1 [facility] for referral (narrative)* Diagnostic Procedure Only (Routine) - Closed Specialty Diagnoses / Procedures Referred By Contac t Referred To Contact XR IMAGING Diagnoses Foot pain, left Erythema of foot Procedures XR FOOT GENERAL 3V AP/LAT/OBL LEFT RADEX FOOT COMPLETE MINIMUM 3 VIEWS Angeline Monterroso APRN.SHIP KEEPER [address] [place] [address] [place] [address] Referral ID Status Reason Start Date Expiration Date V isits Requested Visits Authorized [id number] Closed Auto-Generate d Referral 07/20/2021 08/19/2022 1 1 [facility] for referral (narrative)* Diagnostic Procedure Only (Routine) - Closed Specialty Diagnoses / Procedures Referred By Contac t Referred To Contact XR IMAGING Diagnoses Inflammatory arthritis Pain in joint, multiple sites Procedures XR HAND GENERAL 3V PA/LAT/OBL BILATERAL RADEX HAND MINIMUM 3 [place] [address] [place] [address] [place] [address] Referral ID Status Reason Start Date Expiration Date V isits Requested Visits Authorized [id number] Closed Auto-Generate d Referral 05/02/2021 06/01/2022 1 1 [facility] for referral (narrative)* Diagnostic Procedure Only (Routine) - Closed Specialty Diagnoses / Procedures Referred By Contac t Referred To Contact XR IMAGING Diagnoses Injury of left hip, initial encounter Hip pain Procedures XR HIP GENERAL 3V PELV/AP/LAT LEFT RADEX HIP UNILATERAL WITH PELVIS 2-3 VIEWS Angeline Monterroso APRN.CNP [address] [place] [address] [place] [address] Referral ID Status Reason Start Date Expiration Date V isits Requested Visits Authorized [id number] Closed Auto-Generate d Referral 04/10/2021 05/10/2022 1 1 [facility] for visit Narrative* Diagnostic Procedure Only (Routine) - Closed Specialty Diagnoses / Procedures Referred By Contac t Referred To Contact XR IMAGING Diagnoses Pain in both knees, unspecified chronicity Procedures XR KNEE POST OP 3V AP/LAT/MERCHANT BILATERAL RADIOLOGIC EXAMINATION KNEE 3 VIEWS Glenna Bhandari PA-C [address] [place] [address] Xr Imaging Referral ID Status Reason Start Date Expiration Date V isits Requested Visits Authorized [id number] Closed Auto-Generate d Referral 06/23/2021 07/23/2022 1 1 [facility] for visit Narrative* Diagnostic Procedure Only (Routine) - Closed Specialty Diagnoses / Procedures Referred By Contac t Referred To Contact XR IMAGING Diagnoses Repetitive stress injury Procedures XR FOOT GENERAL 3V AP/LAT/OBL LEFT RADEX FOOT COMPLETE MINIMUM 3 VIEWS Margaret Bacon [address] [place] [address] Xr Imaging Referral ID Status Reason Start Date Expiration Date V isits Requested Visits Authorized [id number] Closed Auto-Generate d Referral 08/02/2021 09/01/2022 1 1 [facility] for visit Narrative* Diagnostic Procedure Only (Routine) - Closed Specialty Diagnoses / Procedures Referred By Contac t Referred To Contact XR IMAGING Diagnoses Status post total left knee replacement Status post total right knee replacement Procedures XR KNEE POST OP 3V AP/LAT/MERCHANT BILATERAL RADIOLOGIC EXAMINATION KNEE 3 VIEWS Michael Del Castillo PA-C [address] [place] [address] Xr Imaging Referral ID Status Reason Start Date Expiration Date V isits Requested Visits Authorized [id number] Closed Auto-Generate d Referral 12/22/2021 01/21/2023 1 1 [facility] for visit Narrative* Outpatient Procedure (Routine) - Closed Specialty Diagnoses / Procedures Referred By Contac t Referred To Contact [facility] Diagnoses Screening for colon cancer Procedures COLONOSCOPY SCREENING COLONOSCOPY FLX DX W/COLLJ SPEC WHEN PFRMD Mellisa Villalobos DO [address] [place] [address] [facility] [address] [place] [address] Referral ID Status Reason Start Date Expiration Date V isits Requested Visits Authorized [id number] Closed Auto-Generate d Referral 04/16/2022 04/16/2023 1 1 [facility] for visit Narrative* Diagnostic Procedure Only (Urgent) - Closed Specialty Diagnoses / Procedures Referred By Contac t Referred To Contact US IMAGING Diagnoses Elevated lipase Bloating Upper abdominal pain Nausea Procedures US ABD RIGHT UPPER QUADRANT US ABDOMINAL REAL TIME W/IMAGE LIMITED Angeline Monterroso, PLEASURE CRAFT SAILOR.SHIP KEEPER [address] [place] [address] [place] [address] Referral ID Status Reason Start Date Expiration Date V isits Requested Visits Authorized [id number] Closed Auto-Generate d Referral 05/08/2023 06/06/2024 1 1 [facility] for visit Narrative* Diagnostic Procedure Only (Routine) - Closed Specialty Diagnoses / Procedures Referred By Contac t Referred To Contact XR IMAGING Diagnoses Left knee pain, unspecified chronicity Procedures XR KNEE POST OP 3V AP/LAT/MERCHANT LEFT RADIOLOGIC EXAMINATION KNEE 3 VIEWS Michael Del Castillo PA-C [address] [place] [address] [place] [address] Referral ID Status Reason Start Date Expiration Date V isits Requested Visits Authorized [id number] Closed Auto-Generate d Referral 01/10/2023 02/09/2024 1 1 [facility] for visit Narrative* Diagnostic Procedure Only (Routine) - Closed Specialty Diagnoses / Procedures Referred By Contac t Referred To Contact XR IMAGING Diagnoses Pain in lateral portion of right ankle Procedures XR ANKLE GENERAL 3V AP/LAT/OBL RIGHT RADEX ANKLE COMPLETE MINIMUM 3 VIEWS Kinga Goldberg PLEASURE CRAFT SAILOR.SHIP KEEPER [address] [place] [address] [place] [address] Referral ID Status Reason Start Date Expiration Date V isits Requested Visits Authorized [id number] Closed Auto-Generate d Referral 11/25/2023 12/24/2024 1 1 [facility] for visit Narrative* Diagnostic Procedure Only (Routine) - Closed Specialty Diagnoses / Procedures Referred By Contac t Referred To Contact XR IMAGING Diagnoses Flank pain Procedures XR THORACIC LIMITED 2V AP/LAT RADEX SPINE THORACIC 2 VIEWS Charissa Jauregui, PLEASURE CRAFT SAILOR.SHIP KEEPER [address] [place] [address] [place] [address] Referral ID Status Reason Start Date Expiration Date V isits Requested Visits Authorized [id number] Closed Auto-Generate d Referral 06/09/2021 07/09/2022 1 1 [facility] for visit Narrative* Diagnostic Procedure Only (Routine) - Closed Specialty Diagnoses / Procedures Referred By Contac t Referred To Contact XR IMAGING Diagnoses Foot pain, left Erythema of foot Procedures XR FOOT GENERAL 3V AP/LAT/OBL LEFT RADEX FOOT COMPLETE MINIMUM 3 VIEWS Angeline Monterroso, PLEASURE CRAFT SAILOR.SHIP KEEPER [address] [place] [address] [place] [address] Referral ID Status Reason Start Date Expiration Date V isits Requested Visits Authorized [id number] Closed Auto-Generate d Referral 07/20/2021 08/19/2022 1 1 [facility] for visit Narrative* Diagnostic Procedure Only (Routine) - Closed Specialty Diagnoses / Procedures Referred By Clary t Referred To Contact XR IMAGING Diagnoses Injury of left hip, initial encounter Hip pain Procedures XR HIP GENERAL 3V PELV/AP/LAT LEFT RADEX HIP UNILATERAL WITH PELVIS 2-3 VIEWS Angeline Monterroso APRN.SHIP KEEPER [address] [place] [address] [place] [address] Referral ID Status Reason Start Date Expiration Date V isits Requested Visits Authorized [id number] Closed Auto-Generate d Referral 04/10/2021 05/10/2022 1 1 [facility] for visit Narrative* Diagnostic Procedure Only (Routine) - Authorized Specialty Diagnoses / Procedures Referred By Clary abraham Referred To Contact Radiology / RADIO MRI [facility] Diagnoses Pancreatic cyst Pancreatic Cyst Procedures MRI ABDOMEN W/O & W/CONTRAST MATERIAL MRI WWO ABD 300 Juan Mendez MD [address] [place] [address] Phone: tel: fax: Radiology [address] [facility] [address] Phone: tel: fax: Referral ID Status Reason Start Date Expiration Date V isits Requested Visits Authorized [id number] Authorized 04/20/2024 03/03/2025 2 2 [facility] for visit Narrative* Diagnostic Procedure Only (Routine) - Closed Specialty Diagnoses / Procedures Referred By Clary t Referred To Contact XR IMAGING Diagnoses Chronic left-sided low back pain without sciatica Procedures XR THORACIC GENERAL 3V AP/LAT/SWIMMERS RADEX SPINE THORACIC 3 VIEWS Angeline Monterroso, PARMJIT.SHIP KEEPER [address] [place] [address] Phone: tel: fax: [place] [address] Referral ID Status Reason Start Date Expiration Date V isits Requested Visits Authorized [id number] Closed Auto-Generate d Referral 06/02/2024 07/02/2025 1 1 [facility] for visit Narrative* Diagnostic Procedure Only (Urgent) - Closed Specialty Diagnoses / Procedures Referred By Contac t Referred To Contact XR IMAGING Diagnoses Sprain of ligament of right ankle, initial encounter Procedures XR ANKLE GENERAL 3V AP/LAT/OBL RIGHT RADEX ANKLE COMPLETE MINIMUM 3 VIEWS Lani Arndt PA-C [address] [facility] [address] [place] [address] Phone: tel: fax: [place] [address] Referral ID Status Reason Start Date Expiration Date V isits Requested Visits Authorized [id number] Closed Auto-Generate d Referral 06/30/2024 07/30/2025 [facility] ([facility]) - Closed Specialty Diagnoses / Procedures Referred By Clary abraham Referred To Contact MR IMAGING Diagnoses Spinal stenosis of lumbar region, unspecified whether neurogenic claudication present Procedures MRI LUMBAR SPINE WO IVCON MRI SPINAL CANAL LUMBAR W/O CONTRAST MATERIAL Mary Keith, PLEASURE CRAFT SAILOR.SHIP KEEPER [address] [place] [address] Phone: tel: fax: [place] [address] Referral ID Status Reason Start Date Expiration Date V isits Requested Visits Authorized [id number] Closed Auto-Generate d Referral 07/23/2024 08/22/2025 1 1 [facility] Advance Directives No Advanced Directives Records FoundDocuments on File Type Date 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 Advance Directive(s) 05/10/2022 8:51 AM Date Activated Date Inactivated Comments 03/30/2020 2:47 PM 03/31/2020 11:31 PM Latest Code Status on File Code Status Date Activated Date Inactivated Comments Full Code 03/30/2020 2:47 PM 03/31/2020 11:31 PM Documents on File Type Date 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 Advance Directive(s) 12/18/2020 8:29 PM Advance Directive(s) 07/17/2020 10:38 PM Advance Directive(s) 07/12/2020 1:38 PM Advance Directive(s) 07/10/2020 2:21 PM Advance Directive(s) 04/03/2020 8:56 AM Advance Directive(s) 03/31/2020 11:35 PM Advance Directive(s) 03/28/2020 9:09 AM Advance Directive(s) 02/25/2020 8:25 AM Advance Directive(s) 05/30/2018 9:54 AM Advance Directive(s) 09/24/2017 9:34 AM Advance Directive(s) 07/04/2017 10:00 AM Advance Directive(s) 06/03/2017 9:46 AM Advance Directive(s) 01/04/2017 1:06 PM Advance Directive(s) 09/27/2016 3:15 PM Documents on File Type Date 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 Advance Directive(s) 12/18/2020 8:29 PM Advance Directive(s) 07/17/2020 10:38 PM Advance Directive(s) 07/12/2020 1:38 PM Advance Directive(s) 07/10/2020 2:21 PM Advance Directive(s) 04/03/2020 8:56 AM Advance Directive(s) 03/31/2020 11:35 PM Advance Directive(s) 03/28/2020 9:09 AM Advance Directive(s) 02/25/2020 8:25 AM Advance Directive(s) 05/30/2018 9:54 AM Advance Directive(s) 09/24/2017 9:34 AM Advance Directive(s) 07/04/2017 10:00 AM Advance Directive(s) 06/03/2017 9:46 AM Advance Directive(s) 01/04/2017 1:06 PM Advance Directive(s) 09/27/2016 3:15 PM Latest Code Status on File Code Status Date Activated Date Inactivated Comments Full Code 03/30/2020 2:47 PM 03/31/2020 11:31 PM Advance Directive Response Recorded Date/ Time Living Will Yes September 07, 2016 4 :20pm Power of Pool Player Yes September 07, 2016 4:20pm Advance Directive Response Recorded Date/ Time Living Will Yes September 07, 2016 3 :20pm Power of Pool Player Yes September 07, 2016 3:20pm Documents on File Type Date 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 Advance Directive(s) 05/10/2022 8:51 AM Latest Code Status on File Code Status Date Activated Date Inactivated Comments Full Code 03/30/2020 2:47 PM 03/31/2020 11:31 PM Latest Code Status on File Code Status Date Activated Date Inactivated Comments Full Code 03/30/2020 2:47 PM 03/31/2020 11:31 PM Date Activated Date Inactivated Comments 03/30/2020 2:47 PM 03/31/2020 11:31 PM Chief Complaint and Reason for Visit Chief Complaint THROAT PAIN NECK PN/RX HERE Chief Complaint STANDING ORDER Chief Complaint STANDING ORDER STANDING ORDER Chief Complaint STANDING ORDER S/O- PAIN- COPY PCP Chief Complaint S/O- PAIN- COPY PCP STANDING ORDER Family History No Family History Records Found Relationship Condition Age at Onset Recorded Date/T john Unknown Family History?Cancer Unknown September 072016 5:04pm Family History?Cancer Unknown September 072016 5:04pm Family History?Heart Disease Unknown September 07, 2016 5:04pm Relationship Condition Age at Onset Recorded Date/T john Unknown Family History?Cancer Unknown September 072016 4:04pm Family History?Cancer Unknown September 072016 4:04pm Family History?Heart Disease Unknown September 07, 2016 4:04pm Reason for Referral Specialty Diagnoses / Procedures Referred By Contac t Referred To Contact Podiatry Diagnoses Foot pain, left Erythema of foot Procedures CONSULT TO PODIATRY OFFICE/OUTPATIENT [facility] 60-74 MINUTES Kandi Contreras APRN.SHIP KEEPER [address] [place] [address] Referral ID Status Reason Start Date Expiration Date Visits Requested Visits Authorized [id number] Pending Review PCP Requested Referral 07/21/2021 07/21/2022 1 1 Specialty Diagnoses / Procedures Referred By Contac t Referred To Contact [facility] Diagnoses Pelvic floor dysfunction in female Prolapse of intestine Urinary incontinence, unspecified type Procedures CONSULT TO PHYSICAL THERAPY PHYSICAL THERAPY EVALUATION HIGH COMPLEX 45 MINS Edenilson Nicholson, DO [address] [place] [address] [facility] [address] [place] [address] Referral ID Status Reason Start Date Expiration Date Visits Requested Visits Authorized [id number] Pending Review Auto-Generat ed Referral 12/05/2021 12/05/2022 1 1 Specialty Diagnoses / Procedures Referred By Contac t Referred To Contact Colon and Rectal Surgery Diagnoses Rectal prolapse Procedures CONSULT TO COLO-RECTAL SURGERY OFFICE/OUTPATIENT [facility] 60-74 MINUTES Yi Gonsalves APRN.SHIP KEEPER [address] [place] [address] Referral ID Status Reason Start Date Expiration Date Visits Requested Visits Authorized [id number] Pending Review PCP Requested Referral 12/06/2021 12/06/2022 1 1 Specialty Diagnoses / Procedures Referred By Contac t Referred To Contact XR IMAGING Diagnoses Rectocele Enterocele Rectal prolapse Procedures XR DEFECOGRAPHY RADIOLOGIC EXAM COLON SINGLE CONTRAST STUDY Yi Gonsalves APRN.SHIP KEEPER [address] [place] [address] Xr Imaging Referral ID Status Reason Start Date Expiration Date Visits Requested Visits Authorized [id number] Authorized Auto-Generat ed Referral 12/06/2021 01/05/2023 1 1 Specialty Diagnoses / Procedures Referred By Contac t Referred To Contact [facility] Diagnoses Rectocele Enterocele Rectal prolapse Procedures [facility] ANORECTAL MANOMETRY ANORECTAL MANOMETRY Yi Gonsalves, PARMJIT.SHIP KEEPER [address] [place] [address] [facility] [address] [place] [address] Referral ID Status Reason Start Date Expiration Date Visits Requested Visits Authorized [id number] Pending Review Auto-Generat ed Referral 12/06/2021 12/06/2022 1 1 Specialty Diagnoses / Procedures Referred By Contac t Referred To Contact Urology Diagnoses Urinary frequency Procedures CONSULT TO UROLOGY OFFICE/OUTPATIENT [facility] 60-74 MINUTES Johnie Aguirre APRN.SHIP KEEPER [address] [place] [address] Referral ID Status Reason Start Date Expiration Date Visits Requested Visits Authorized [id number] Pending Review PCP Requested Referral 02/10/2023 1 1 Specialty Diagnoses / Procedures Referred By Contac t Referred To Contact CT IMAGING Diagnoses Short-term memory loss Word finding difficulty Procedures CT BRAIN WO IVCON CT HEAD/BRAIN W/O CONTRAST MATERIAL Edenilson Nicholson L, DO [address] [place] [address] Ct Imaging Referral ID Status Reason Start Date Expiration Date Visits Requested Visits Authorized [id number] Authorized Auto-Generat ed Referral 08/01/2022 08/31/2023 1 1 Specialty Diagnoses / Procedures Referred By Contac t Referred To Contact MR IMAGING Diagnoses Cystic mass of pancreas Procedures MRI 3D POST PROCESSING 3D RENDERING W/INTERP&POSTPROC DIFF WORK STATION Edenilson Nicholson, DO [address] [place] [address] [place] [address] Referral ID Status Reason Start Date Expiration Date V isits Requested Visits Authorized [id number] Closed Auto-Generate d Referral 11/28/2022 12/28/2023 1 1 Specialty Diagnoses / Procedures Referred By Contac t Referred To Contact MR IMAGING Diagnoses Cystic mass of pancreas Procedures MRI PANC/ARETHA WO/W IVCON MRI ABDOMEN W/O & W/CONTRAST MATERIAL Edenilson Nicholson, DO [address] [place] [address] [place] [address] Referral ID Status Reason Start Date Expiration Date V isits Requested Visits Authorized [id number] Closed Auto-Generate d Referral 11/28/2022 12/28/2023 1 1 Specialty Diagnoses / Procedures Referred By Contac t Referred To Contact CT IMAGING Diagnoses Short-term memory loss Word finding difficulty Procedures CT BRAIN WO IVCON CT HEAD/BRAIN W/O CONTRAST MATERIAL Edenilson Nicholson, DO [address] [place] [address] [place] [address] Referral ID Status Reason Start Date Expiration Date V isits Requested Visits Authorized [id number] Closed Auto-Generate d Referral 08/01/2022 08/31/2023 1 1 Specialty Diagnoses / Procedures Referred By Contac t Referred To Contact MR IMAGING Diagnoses Pancreas cyst Cystic mass of pancreas Abnormal MRI of abdomen Procedures MRI 3D POST PROCESSING 3D RENDERING W/INTERP&POSTPROC DIFF WORK STATION Edenilson Nicholson, DO [address] [place] [address] [place] [address] Referral ID Status Reason Start Date Expiration Date Visits Requested Visits Authorized [id number] Pending Review Auto-Generat ed Referral 3 02/15/2024 1 1 Specialty Diagnoses / Procedures Referred By Contac t Referred To Contact MR IMAGING Diagnoses Pancreas cyst Cystic mass of pancreas Abnormal MRI of abdomen Procedures MRI PANC/ARETHA WO/W IVCON MRI ABDOMEN W/O & W/CONTRAST MATERIAL Edenilson Nichoslon DO [address] [place] [address] [place] [address] Referral ID Status Reason Start Date Expiration Date Visits Requested Visits Authorized [id number] Pending Review Auto-Generat ed Referral 07/17/2023 02/15/2024 1 1 Specialty Diagnoses / Procedures Referred By Contac t Referred To Contact Diagnoses Acute left-sided low back pain without sciatica Angeline Monterroso APRN.SHIP KEEPER [address] [place] [address] Referral ID Status Reason Start Date Expiration Date V isits Requested Visits Authorized [id number] Authorized 02/24/2024 03/25/2025 1 1 Specialty Diagnoses / Procedures Referred By Contac t Referred To Contact [facility] Diagnoses Acute left-sided low back pain without sciatica Procedures CONSULT TO PHYSICAL THERAPY PHYSICAL THERAPY EVALUATION HIGH COMPLEX 45 MINS Angeline Monterroso APRN.[employer] [address] [place] [address] [facility] [address] [place] [address] Referral ID Status Reason Start Date Expiration Date Visits Requested Visits Authorized [id number] Authorized Auto-Generat ed Referral 03/04/2024 03/03/2025 99 99 Health Concerns Infection Onset Date Last Indicated Resolved Time COVID-19 Rule-Out 03/05/2022 03/05/2022 03/06/2022 3:55 AM EST Medications Administered Section Inactive Administered Medications - up to 3 most recent administrations Medication Order MAR Action Action Date Dose Rate Site fentaNYL 50 mcg/mL 25-100 mcg injection (SUBLIMAZE) 25-100 mcg, INTRAVENOUS, DIRECTED, Starting on Moira 05/10/22 at 1000, Until Moira 05/10/22 at 1359, DOSING DIRECTED BY PHYSICIAN FOR PROCEDURAL SEDATION ONLY, Intraprocedure Given 05/10/2022 10:03 AM EST 50 mcg Given 05/10/2022 9:51 AM EST 50 mcg lactated ringers iv infusion 30 mL/hr, INTRAVENOUS, CONTINUOUS, Starting on Moira 05/10/22 at 0930, Until Moira 05/10/22 at 1032, Preprocedure New Bag/Syringe/Bottle 05/10/2022 9:30 AM EST 30 mL/hr 30 mL/hr midazolam 1-5 mg injection (VERSED) 1-5 mg, INTRAVENOUS, DIRECTED, Starting on Moira 05/10/22 at 1000, Until Moira 05/10/22 at 1359, DOSING DIRECTED BY PHYSICIAN FOR PROCEDURAL SEDATION ONLY, Intraprocedure Given 05/10/2022 9:58 AM EST 2 mg Given 05/10/2022 9:51 AM EST 3 mg Inactive Administered Medications - up to 3 most recent administrations Medication Order MAR Action Action Date Dose Rate Site lidocaine (PF) 10 mg/mL (1 %) 3 mL injection (XYLOCAINE) 3 mL, Injection - FOR ORTHO USE ONLY, ONCE, 1 dose, Starting on 01/14/23 at 1612, Until Sat01/14/23 at 1612 Given 01/14/2023 4:12 PM EST 3 mL Knee, Left Summary Purpose Additional Source Comments Source Comments (unrecognize d section and content) In the event this informatio n is protected by the Federal Confidentiality of Alcohol and Drug Abuse Patient Records regulations: The Federal rules restrict any use of the information to criminally investigate or prosecute any alcohol or drug abuse patient.[facility] the event this information is protected by the Federal Confidentiality of Alcohol and Drug Abuse Patient Records regulations: The Federal rules restrict any use of the information to criminally investigate or prosecute any alcohol or drug abuse patient.[facility]In the event this information is protected by the Federal Confidentiality of Alcohol and Drug Abuse Patient Records regulations: The Federal rules restrict any use of the information to criminally investigate or prosecute any alcohol or drug abuse patient.[facility]In the event this information is protected by the Federal Confidentiality of Alcohol and Drug Abuse Patient Records regulations: The Federal rules restrict any use of the information to criminally investigate or prosecute any alcohol or drug abuse patient.[facility]In the event this information is protected by the Federal Confidentiality of Alcohol and Drug Abuse Patient Records regulations: The Federal rules restrict any use of the information to criminally investigate or prosecute any alcohol or drug abuse patient.[facility]In the event this information is protected by the Federal Confidentiality of Alcohol and Drug Abuse Patient Records regulations: The Federal rules restrict any use of the information to criminally investigate or prosecute any alcohol or drug abuse patient.[facility]In the event this information is protected by the Federal Confidentiality of Alcohol and Drug Abuse Patient Records regulations: The Federal rules restrict any use of the information to criminally investigate or prosecute any alcohol or drug abuse patient.[facility]In the event this information is protected by the Federal Confidentiality of Alcohol and Drug Abuse Patient Records regulations: The Federal rules restrict any use of the information to criminally investigate or prosecute any alcohol or drug abuse patient.[facility]In the event this information is protected by the Federal Confidentiality of Alcohol and Drug Abuse Patient Records regulations: The Federal rules restrict any use of the information to criminally investigate or prosecute any alcohol or drug abuse patient.[facility]In the event this information is protected by the Federal Confidentiality of Alcohol and Drug Abuse Patient Records regulations: The Federal rules restrict any use of the information to criminally investigate or prosecute any alcohol or drug abuse patient.[facility]In the event this information is protected by the Federal Confidentiality of Alcohol and Drug Abuse Patient Records regulations: The Federal rules restrict any use of the information to criminally investigate or prosecute any alcohol or drug abuse patient.[facility]In the event this information is protected by the Federal Confidentiality of Alcohol and Drug Abuse Patient Records regulations: The Federal rules restrict any use of the information to criminally investigate or prosecute any alcohol or drug abuse patient.[facility]In the event this information is protected by the Federal Confidentiality of Alcohol and Drug Abuse Patient Records regulations: The Federal rules restrict any use of the information to criminally investigate or prosecute any alcohol or drug abuse patient.[facility]In the event this information is protected by the Federal Confidentiality of Alcohol and Drug Abuse Patient Records regulations: The Federal rules restrict any use of the information to criminally investigate or prosecute any alcohol or drug abuse patient.[facility] HospitalIn the event this information is protected by the Federal Confidentiality of Alcohol and Drug Abuse Patient Records regulations: The Federal rules restrict any use of the information to criminally investigate or prosecute any alcohol or drug abuse patient.[facility] HospitalIn the event this information is protected by the Federal Confidentiality of Alcohol and Drug Abuse Patient Records regulations: The Federal rules restrict any use of the information to criminally investigate or prosecute any alcohol or drug abuse patient.[facility]In the event this information is protected by the Federal Confidentiality of Alcohol and Drug Abuse Patient Records regulations: The Federal rules restrict any use of the information to criminally investigate or prosecute any alcohol or drug abuse patient.[facility] HospitalIn the event this information is protected by the Federal Confidentiality of Alcohol and Drug Abuse Patient Records regulations: The Federal rules restrict any use of the information to criminally investigate or prosecute any alcohol or drug abuse patient.[facility]In the event this information is protected by the Federal Confidentiality of Alcohol and Drug Abuse Patient Records regulations: The Federal rules restrict any use of the information to criminally investigate or prosecute any alcohol or drug abuse patient.[facility]In the event this information is protected by the Federal Confidentiality of Alcohol and Drug Abuse Patient Records regulations: The Federal rules restrict any use of the information to criminally investigate or prosecute any alcohol or drug abuse patient.[facility] HospitalIn the event this information is protected by the Federal Confidentiality of Alcohol and Drug Abuse Patient Records regulations: The Federal rules restrict any use of the information to criminally investigate or prosecute any alcohol or drug abuse patient.[facility]In the event this information is protected by the Federal Confidentiality of Alcohol and Drug Abuse Patient Records regulations: The Federal rules restrict any use of the information to criminally investigate or prosecute any alcohol or drug abuse patient.[facility] HospitalIn the event this information is protected by the Federal Confidentiality of Alcohol and Drug Abuse Patient Records regulations: The Federal rules restrict any use of the information to criminally investigate or prosecute any alcohol or drug abuse patient.[facility]In the event this information is protected by the Federal Confidentiality of Alcohol and Drug Abuse Patient Records regulations: The Federal rules restrict any use of the information to criminally investigate or prosecute any alcohol or drug abuse patient.[facility]In the event this information is protected by the Federal Confidentiality of Alcohol and Drug Abuse Patient Records regulations: The Federal rules restrict any use of the information to criminally investigate or prosecute any alcohol or drug abuse patient.[facility]In the event this information is protected by the Federal Confidentiality of Alcohol and Drug Abuse Patient Records regulations: The Federal rules restrict any use of the information to criminally investigate or prosecute any alcohol or drug abuse patient.[facility]In the event this information is protected by the Federal Confidentiality of Alcohol and Drug Abuse Patient Records regulations: The Federal rules restrict any use of the information to criminally investigate or prosecute any alcohol or drug abuse patient.[facility]In the event this information is protected by the Federal Confidentiality of Alcohol and Drug Abuse Patient Records regulations: The Federal rules restrict any use of the information to criminally investigate or prosecute any alcohol or drug abuse patient.[facility]In the event this information is protected by the Federal Confidentiality of Alcohol and Drug Abuse Patient Records regulations: The Federal rules restrict any use of the information to criminally investigate or prosecute any alcohol or drug abuse patient.[facility]In the event this information is protected by the Federal Confidentiality of Alcohol and Drug Abuse Patient Records regulations: The Federal rules restrict any use of the information to criminally investigate or prosecute any alcohol or drug abuse patient.[facility]In the event this information is protected by the Federal Confidentiality of Alcohol and Drug Abuse Patient Records regulations: The Federal rules restrict any use of the information to criminally investigate or prosecute any alcohol or drug abuse patient.[facility]In the event this information is protected by the Federal Confidentiality of Alcohol and Drug Abuse Patient Records regulations: The Federal rules restrict any use of the information to criminally investigate or prosecute any alcohol or drug abuse patient.[facility]In the event this information is protected by the Federal Confidentiality of Alcohol and Drug Abuse Patient Records regulations: The Federal rules restrict any use of the information to criminally investigate or prosecute any alcohol or drug abuse patient.[facility]In the event this information is protected by the Federal Confidentiality of Alcohol and Drug Abuse Patient Records regulations: The Federal rules restrict any use of the information to criminally investigate or prosecute any alcohol or drug abuse patient.[facility]In the event this information is protected by the Federal Confidentiality of Alcohol and Drug Abuse Patient Records regulations: The Federal rules restrict any use of the information to criminally investigate or prosecute any alcohol or drug abuse patient.[facility]In the event this information is protected by the Federal Confidentiality of Alcohol and Drug Abuse Patient Records regulations: The Federal rules restrict any use of the information to criminally investigate or prosecute any alcohol or drug abuse patient.[facility]In the event this information is protected by the Federal Confidentiality of Alcohol and Drug Abuse Patient Records regulations: The Federal rules restrict any use of the information to criminally investigate or prosecute any alcohol or drug abuse patient.[facility]In the event this information is protected by the Federal Confidentiality of Alcohol and Drug Abuse Patient Records regulations: The Federal rules restrict any use of the information to criminally investigate or prosecute any alcohol or drug abuse patient.[facility]In the event this information is protected by the Federal Confidentiality of Alcohol and Drug Abuse Patient Records regulations: The Federal rules restrict any use of the information to criminally investigate or prosecute any alcohol or drug abuse patient.[facility] HospitalIn the event this information is protected by the Federal Confidentiality of Alcohol and Drug Abuse Patient Records regulations: The Federal rules restrict any use of the information to criminally investigate or prosecute any alcohol or drug abuse patient.[facility] HospitalIn the event this information is protected by the Federal Confidentiality of Alcohol and Drug Abuse Patient Records regulations: The Federal rules restrict any use of the information to criminally investigate or prosecute any alcohol or drug abuse patient.[facility]In the event this information is protected by the Federal Confidentiality of Alcohol and Drug Abuse Patient Records regulations: The Federal rules restrict any use of the information to criminally investigate or prosecute any alcohol or drug abuse patient.[facility]In the event this information is protected by the Federal Confidentiality of Alcohol and Drug Abuse Patient Records regulations: The Federal rules restrict any use of the information to criminally investigate or prosecute any alcohol or drug abuse patient.[facility] HospitalIn the event this information is protected by the Federal Confidentiality of Alcohol and Drug Abuse Patient Records regulations: The Federal rules restrict any use of the information to criminally investigate or prosecute any alcohol or drug abuse patient.[facility] HospitalIn the event this information is protected by the Federal Confidentiality of Alcohol and Drug Abuse Patient Records regulations: The Federal rules restrict any use of the information to criminally investigate or prosecute any alcohol or drug abuse patient.[facility]In the event this information is protected by the Federal Confidentiality of Alcohol and Drug Abuse Patient Records regulations: The Federal rules restrict any use of the information to criminally investigate or prosecute any alcohol or drug abuse patient.[facility] HospitalIn the event this information is protected by the Federal Confidentiality of Alcohol and Drug Abuse Patient Records regulations: The Federal rules restrict any use of the information to criminally investigate or prosecute any alcohol or drug abuse patient.[facility]In the event this information is protected by the Federal Confidentiality of Alcohol and Drug Abuse Patient Records regulations: The Federal rules restrict any use of the information to criminally investigate or prosecute any alcohol or drug abuse patient.[facility]In the event this information is protected by the Federal Confidentiality of Alcohol and Drug Abuse Patient Records regulations: The Federal rules restrict any use of the information to criminally investigate or prosecute any alcohol or drug abuse patient.[facility]In the event this information is protected by the Federal Confidentiality of Alcohol and Drug Abuse Patient Records regulations: The Federal rules restrict any use of the information to criminally investigate or prosecute any alcohol or drug abuse patient.[facility] HospitalIn the event this information is protected by the Federal Confidentiality of Alcohol and Drug Abuse Patient Records regulations: The Federal rules restrict any use of the information to criminally investigate or prosecute any alcohol or drug abuse patient.[facility]In the event this information is protected by the Federal Confidentiality of Alcohol and Drug Abuse Patient Records regulations: The Federal rules restrict any use of the information to criminally investigate or prosecute any alcohol or drug abuse patient.[facility]In the event this information is protected by the Federal Confidentiality of Alcohol and Drug Abuse Patient Records regulations: The Federal rules restrict any use of the information to criminally investigate or prosecute any alcohol or drug abuse patient.[facility]In the event this information is protected by the Federal Confidentiality of Alcohol and Drug Abuse Patient Records regulations: The Federal rules restrict any use of the information to criminally investigate or prosecute any alcohol or drug abuse patient.[facility]In the event this information is protected by the Federal Confidentiality of Alcohol and Drug Abuse Patient Records regulations: The Federal rules restrict any use of the information to criminally investigate or prosecute any alcohol or drug abuse patient.[facility]In the event this information is protected by the Federal Confidentiality of Alcohol and Drug Abuse Patient Records regulations: The Federal rules restrict any use of the information to criminally investigate or prosecute any alcohol or drug abuse patient.[facility]In the event this information is protected by the Federal Confidentiality of Alcohol and Drug Abuse Patient Records regulations: The Federal rules restrict any use of the information to criminally investigate or prosecute any alcohol or drug abuse patient.[facility]In the event this information is protected by the Federal Confidentiality of Alcohol and Drug Abuse Patient Records regulations: The Federal rules restrict any use of the information to criminally investigate or prosecute any alcohol or drug abuse patient.[facility]In the event this information is protected by the Federal Confidentiality of Alcohol and Drug Abuse Patient Records regulations: The Federal rules restrict any use of the information to criminally investigate or prosecute any alcohol or drug abuse patient.[facility]In the event this information is protected by the Federal Confidentiality of Alcohol and Drug Abuse Patient Records regulations: The Federal rules restrict any use of the information to criminally investigate or prosecute any alcohol or drug abuse patient.[facility]In the event this information is protected by the Federal Confidentiality of Alcohol and Drug Abuse Patient Records regulations: The Federal rules restrict any use of the information to criminally investigate or prosecute any alcohol or drug abuse patient.[facility]In the event this information is protected by the Federal Confidentiality of Alcohol and Drug Abuse Patient Records regulations: The Federal rules restrict any use of the information to criminally investigate or prosecute any alcohol or drug abuse patient.[facility]In the event this information is protected by the Federal Confidentiality of Alcohol and Drug Abuse Patient Records regulations: The Federal rules restrict any use of the information to criminally investigate or prosecute any alcohol or drug abuse patient.[facility]In the event this information is protected by the Federal Confidentiality of Alcohol and Drug Abuse Patient Records regulations: The Federal rules restrict any use of the information to criminally investigate or prosecute any alcohol or drug abuse patient.[facility]In the event this information is protected by the Federal Confidentiality of Alcohol and Drug Abuse Patient Records regulations: The Federal rules restrict any use of the information to criminally investigate or prosecute any alcohol or drug abuse patient.[facility]In the event this information is protected by the Federal Confidentiality of Alcohol and Drug Abuse Patient Records regulations: The Federal rules restrict any use of the information to criminally investigate or prosecute any alcohol or drug abuse patient.[facility]In the event this information is protected by the Federal Confidentiality of Alcohol and Drug Abuse Patient Records regulations: The Federal rules restrict any use of the information to criminally investigate or prosecute any alcohol or drug abuse patient.[facility]In the event this information is protected by the Federal Confidentiality of Alcohol and Drug Abuse Patient Records regulations: The Federal rules restrict any use of the information to criminally investigate or prosecute any alcohol or drug abuse patient.[facility]In the event this information is protected by the Federal Confidentiality of Alcohol and Drug Abuse Patient Records regulations: The Federal rules restrict any use of the information to criminally investigate or prosecute any alcohol or drug abuse patient.[facility]In the event this information is protected by the Federal Confidentiality of Alcohol and Drug Abuse Patient Records regulations: The Federal rules restrict any use of the information to criminally investigate or prosecute any alcohol or drug abuse patient.[facility]In the event this information is protected by the Federal Confidentiality of Alcohol and Drug Abuse Patient Records regulations: The Federal rules restrict any use of the information to criminally investigate or prosecute any alcohol or drug abuse patient.[facility]In the event this information is protected by the Federal Confidentiality of Alcohol and Drug Abuse Patient Records regulations: The Federal rules restrict any use of the information to criminally investigate or prosecute any alcohol or drug abuse patient.[facility]In the event this information is protected by the Federal Confidentiality of Alcohol and Drug Abuse Patient Records regulations: The Federal rules restrict any use of the information to criminally investigate or prosecute any alcohol or drug abuse patient.[facility]In the event this information is protected by the Federal Confidentiality of Alcohol and Drug Abuse Patient Records regulations: The Federal rules restrict any use of the information to criminally investigate or prosecute any alcohol or drug abuse patient.[facility]In the event this information is protected by the Federal Confidentiality of Alcohol and Drug Abuse Patient Records regulations: The Federal rules restrict any use of the information to criminally investigate or prosecute any alcohol or drug abuse patient.[facility]In the event this information is protected by the Federal Confidentiality of Alcohol and Drug Abuse Patient Records regulations: The Federal rules restrict any use of the information to criminally investigate or prosecute any alcohol or drug abuse patient.[facility]In the event this information is protected by the Federal Confidentiality of Alcohol and Drug Abuse Patient Records regulations: The Federal rules restrict any use of the information to criminally investigate or prosecute any alcohol or drug abuse patient.[facility]In the event this information is protected by the Federal Confidentiality of Alcohol and Drug Abuse Patient Records regulations: The Federal rules restrict any use of the information to criminally investigate or prosecute any alcohol or drug abuse patient.[facility] HospitalIn the event this information is protected by the Federal Confidentiality of Alcohol and Drug Abuse Patient Records regulations: The Federal rules restrict any use of the information to criminally investigate or prosecute any alcohol or drug abuse patient.[facility]In the event this information is protected by the Federal Confidentiality of Alcohol and Drug Abuse Patient Records regulations: The Federal rules restrict any use of the information to criminally investigate or prosecute any alcohol or drug abuse patient.[facility] HospitalIn the event this information is protected by the Federal Confidentiality of Alcohol and Drug Abuse Patient Records regulations: The Federal rules restrict any use of the information to criminally investigate or prosecute any alcohol or drug abuse patient.[facility] HospitalIn the event this information is protected by the Federal Confidentiality of Alcohol and Drug Abuse Patient Records regulations: The Federal rules restrict any use of the information to criminally investigate or prosecute any alcohol or drug abuse patient.[facility] HospitalIn the event this information is protected by the Federal Confidentiality of Alcohol and Drug Abuse Patient Records regulations: The Federal rules restrict any use of the information to criminally investigate or prosecute any alcohol or drug abuse patient.[facility] HospitalIn the event this information is protected by the Federal Confidentiality of Alcohol and Drug Abuse Patient Records regulations: The Federal rules restrict any use of the information to criminally investigate or prosecute any alcohol or drug abuse patient.[facility] HospitalIn the event this information is protected by the Federal Confidentiality of Alcohol and Drug Abuse Patient Records regulations: The Federal rules restrict any use of the information to criminally investigate or prosecute any alcohol or drug abuse patient.[facility]In the event this information is protected by the Federal Confidentiality of Alcohol and Drug Abuse Patient Records regulations: The Federal rules restrict any use of the information to criminally investigate or prosecute any alcohol or drug abuse patient.[facility]In the event this information is protected by the Federal Confidentiality of Alcohol and Drug Abuse Patient Records regulations: The Federal rules restrict any use of the information to criminally investigate or prosecute any alcohol or drug abuse patient.[facility] HospitalIn the event this information is protected by the Federal Confidentiality of Alcohol and Drug Abuse Patient Records regulations: The Federal rules restrict any use of the information to criminally investigate or prosecute any alcohol or drug abuse patient.[facility] HospitalIn the event this information is protected by the Federal Confidentiality of Alcohol and Drug Abuse Patient Records regulations: The Federal rules restrict any use of the information to criminally investigate or prosecute any alcohol or drug abuse patient.[facility] HospitalIn the event this information is protected by the Federal Confidentiality of Alcohol and Drug Abuse Patient Records regulations: The Federal rules restrict any use of the information to criminally investigate or prosecute any alcohol or drug abuse patient.[facility] HospitalIn the event this information is protected by the Federal Confidentiality of Alcohol and Drug Abuse Patient Records regulations: The Federal rules restrict any use of the information to criminally investigate or prosecute any alcohol or drug abuse patient.[facility] HospitalIn the event this information is protected by the Federal Confidentiality of Alcohol and Drug Abuse Patient Records regulations: The Federal rules restrict any use of the information to criminally investigate or prosecute any alcohol or drug abuse patient.[facility] HospitalIn the event this information is protected by the Federal Confidentiality of Alcohol and Drug Abuse Patient Records regulations: The Federal rules restrict any use of the information to criminally investigate or prosecute any alcohol or drug abuse patient.[facility]In the event this information is protected by the Federal Confidentiality of Alcohol and Drug Abuse Patient Records regulations: The Federal rules restrict any use of the information to criminally investigate or prosecute any alcohol or drug abuse patient.[facility] HospitalIn the event this information is protected by the Federal Confidentiality of Alcohol and Drug Abuse Patient Records regulations: The Federal rules restrict any use of the information to criminally investigate or prosecute any alcohol or drug abuse patient.[facility] HospitalIn the event this information is protected by the Federal Confidentiality of Alcohol and Drug Abuse Patient Records regulations: The Federal rules restrict any use of the information to criminally investigate or prosecute any alcohol or drug abuse patient.[facility] HospitalIn the event this information is protected by the Federal Confidentiality of Alcohol and Drug Abuse Patient Records regulations: The Federal rules restrict any use of the information to criminally investigate or prosecute any alcohol or drug abuse patient.[facility]In the event this information is protected by the Federal Confidentiality of Alcohol and Drug Abuse Patient Records regulations: The Federal rules restrict any use of the information to criminally investigate or prosecute any alcohol or drug abuse patient.[facility] HospitalIn the event this information is protected by the Federal Confidentiality of Alcohol and Drug Abuse Patient Records regulations: The Federal rules restrict any use of the information to criminally investigate or prosecute any alcohol or drug abuse patient.[facility] HospitalIn the event this information is protected by the Federal Confidentiality of Alcohol and Drug Abuse Patient Records regulations: The Federal rules restrict any use of the information to criminally investigate or prosecute any alcohol or drug abuse patient.[facility]In the event this information is protected by the Federal Confidentiality of Alcohol and Drug Abuse Patient Records regulations: The Federal rules restrict any use of the information to criminally investigate or prosecute any alcohol or drug abuse patient.[facility]In the event this information is protected by the Federal Confidentiality of Alcohol and Drug Abuse Patient Records regulations: The Federal rules restrict any use of the information to criminally investigate or prosecute any alcohol or drug abuse patient.[facility]In the event this information is protected by the Federal Confidentiality of Alcohol and Drug Abuse Patient Records regulations: The Federal rules restrict any use of the information to criminally investigate or prosecute any alcohol or drug abuse patient.[facility] HospitalIn the event this information is protected by the Federal Confidentiality of Alcohol and Drug Abuse Patient Records regulations: The Federal rules restrict any use of the information to criminally investigate or prosecute any alcohol or drug abuse patient.[facility]In the event this information is protected by the Federal Confidentiality of Alcohol and Drug Abuse Patient Records regulations: The Federal rules restrict any use of the information to criminally investigate or prosecute any alcohol or drug abuse patient.[facility]In the event this information is protected by the Federal Confidentiality of Alcohol and Drug Abuse Patient Records regulations: The Federal rules restrict any use of the information to criminally investigate or prosecute any alcohol or drug abuse patient.[facility] HospitalIn the event this information is protected by the Federal Confidentiality of Alcohol and Drug Abuse Patient Records regulations: The Federal rules restrict any use of the information to criminally investigate or prosecute any alcohol or drug abuse patient.[facility] HospitalIn the event this information is protected by the Federal Confidentiality of Alcohol and Drug Abuse Patient Records regulations: The Federal rules restrict any use of the information to criminally investigate or prosecute any alcohol or drug abuse patient.[facility]In the event this information is protected by the Federal Confidentiality of Alcohol and Drug Abuse Patient Records regulations: The Federal rules restrict any use of the information to criminally investigate or prosecute any alcohol or drug abuse patient.[facility]In the event this information is protected by the Federal Confidentiality of Alcohol and Drug Abuse Patient Records regulations: The Federal rules restrict any use of the information to criminally investigate or prosecute any alcohol or drug abuse patient.[facility]In the event this information is protected by the Federal Confidentiality of Alcohol and Drug Abuse Patient Records regulations: The Federal rules restrict any use of the information to criminally investigate or prosecute any alcohol or drug abuse patient.[facility]In the event this information is protected by the Federal Confidentiality of Alcohol and Drug Abuse Patient Records regulations: The Federal rules restrict any use of the information to criminally investigate or prosecute any alcohol or drug abuse patient.[facility]In the event this information is protected by the Federal Confidentiality of Alcohol and Drug Abuse Patient Records regulations: The Federal rules restrict any use of the information to criminally investigate or prosecute any alcohol or drug abuse patient.[facility]In the event this information is protected by the Federal Confidentiality of Alcohol and Drug Abuse Patient Records regulations: The Federal rules restrict any use of the information to criminally investigate or prosecute any alcohol or drug abuse patient.[facility]In the event this information is protected by the Federal Confidentiality of Alcohol and Drug Abuse Patient Records regulations: The Federal rules restrict any use of the information to criminally investigate or prosecute any alcohol or drug abuse patient.[facility]In the event this information is protected by the Federal Confidentiality of Alcohol and Drug Abuse Patient Records regulations: The Federal rules restrict any use of the information to criminally investigate or prosecute any alcohol or drug abuse patient.[facility]In the event this information is protected by the Federal Confidentiality of Alcohol and Drug Abuse Patient Records regulations: The Federal rules restrict any use of the information to criminally investigate or prosecute any alcohol or drug abuse patient.[facility]In the event this information is protected by the Federal Confidentiality of Alcohol and Drug Abuse Patient Records regulations: The Federal rules restrict any use of the information to criminally investigate or prosecute any alcohol or drug abuse patient.[facility]In the event this information is protected by the Federal Confidentiality of Alcohol and Drug Abuse Patient Records regulations: The Federal rules restrict any use of the information to criminally investigate or prosecute any alcohol or drug abuse patient.[facility]In the event this information is protected by the Federal Confidentiality of Alcohol and Drug Abuse Patient Records regulations: The Federal rules restrict any use of the information to criminally investigate or prosecute any alcohol or drug abuse patient.[facility] HospitalIn the event this information is protected by the Federal Confidentiality of Alcohol and Drug Abuse Patient Records regulations: The Federal rules restrict any use of the information to criminally investigate or prosecute any alcohol or drug abuse patient.[facility] HospitalIn the event this information is protected by the Federal Confidentiality of Alcohol and Drug Abuse Patient Records regulations: The Federal rules restrict any use of the information to criminally investigate or prosecute any alcohol or drug abuse patient.[facility] HospitalIn the event this information is protected by the Federal Confidentiality of Alcohol and Drug Abuse Patient Records regulations: The Federal rules restrict any use of the information to criminally investigate or prosecute any alcohol or drug abuse patient.[facility] HospitalIn the event this information is protected by the Federal Confidentiality of Alcohol and Drug Abuse Patient Records regulations: The Federal rules restrict any use of the information to criminally investigate or prosecute any alcohol or drug abuse patient.[facility] HospitalIn the event this information is protected by the Federal Confidentiality of Alcohol and Drug Abuse Patient Records regulations: The Federal rules restrict any use of the information to criminally investigate or prosecute any alcohol or drug abuse patient.[facility]In the event this information is protected by the Federal Confidentiality of Alcohol and Drug Abuse Patient Records regulations: The Federal rules restrict any use of the information to criminally investigate or prosecute any alcohol or drug abuse patient.[facility]In the event this information is protected by the Federal Confidentiality of Alcohol and Drug Abuse Patient Records regulations: The Federal rules restrict any use of the information to criminally investigate or prosecute any alcohol or drug abuse patient.[facility]In the event this information is protected by the Federal Confidentiality of Alcohol and Drug Abuse Patient Records regulations: The Federal rules restrict any use of the information to criminally investigate or prosecute any alcohol or drug abuse patient.[facility]In the event this information is protected by the Federal Confidentiality of Alcohol and Drug Abuse Patient Records regulations: The Federal rules restrict any use of the information to criminally investigate or prosecute any alcohol or drug abuse patient.[facility]In the event this information is protected by the Federal Confidentiality of Alcohol and Drug Abuse Patient Records regulations: The Federal rules restrict any use of the information to criminally investigate or prosecute any alcohol or drug abuse patient.[facility]In the event this information is protected by the Federal Confidentiality of Alcohol and Drug Abuse Patient Records regulations: The Federal rules restrict any use of the information to criminally investigate or prosecute any alcohol or drug abuse patient.[facility]In the event this information is protected by the Federal Confidentiality of Alcohol and Drug Abuse Patient Records regulations: The Federal rules restrict any use of the information to criminally investigate or prosecute any alcohol or drug abuse patient.[facility]In the event this information is protected by the Federal Confidentiality of Alcohol and Drug Abuse Patient Records regulations: The Federal rules restrict any use of the information to criminally investigate or prosecute any alcohol or drug abuse patient.[facility]In the event this information is protected by the Federal Confidentiality of Alcohol and Drug Abuse Patient Records regulations: The Federal rules restrict any use of the information to criminally investigate or prosecute any alcohol or drug abuse patient.[facility]In the event this information is protected by the Federal Confidentiality of Alcohol and Drug Abuse Patient Records regulations: The Federal rules restrict any use of the information to criminally investigate or prosecute any alcohol or drug abuse patient.[facility]In the event this information is protected by the Federal Confidentiality of Alcohol and Drug Abuse Patient Records regulations: The Federal rules restrict any use of the information to criminally investigate or prosecute any alcohol or drug abuse patient.[facility]In the event this information is protected by the Federal Confidentiality of Alcohol and Drug Abuse Patient Records regulations: The Federal rules restrict any use of the information to criminally investigate or prosecute any alcohol or drug abuse patient.[facility]In the event this information is protected by the Federal Confidentiality of Alcohol and Drug Abuse Patient Records regulations: The Federal rules restrict any use of the information to criminally investigate or prosecute any alcohol or drug abuse patient.[facility]In the event this information is protected by the Federal Confidentiality of Alcohol and Drug Abuse Patient Records regulations: The Federal rules restrict any use of the information to criminally investigate or prosecute any alcohol or drug abuse patient.[facility]In the event this information is protected by the Federal Confidentiality of Alcohol and Drug Abuse Patient Records regulations: The Federal rules restrict any use of the information to criminally investigate or prosecute any alcohol or drug abuse patient.[facility]In the event this information is protected by the Federal Confidentiality of Alcohol and Drug Abuse Patient Records regulations: The Federal rules restrict any use of the information to criminally investigate or prosecute any alcohol or drug abuse patient.[facility]In the event this information is protected by the Federal Confidentiality of Alcohol and Drug Abuse Patient Records regulations: The Federal rules restrict any use of the information to criminally investigate or prosecute any alcohol or drug abuse patient.[facility]In the event this information is protected by the Federal Confidentiality of Alcohol and Drug Abuse Patient Records regulations: The Federal rules restrict any use of the information to criminally investigate or prosecute any alcohol or drug abuse patient.[facility]In the event this information is protected by the Federal Confidentiality of Alcohol and Drug Abuse Patient Records regulations: The Federal rules restrict any use of the information to criminally investigate or prosecute any alcohol or drug abuse patient.[facility]In the event this information is protected by the Federal Confidentiality of Alcohol and Drug Abuse Patient Records regulations: The Federal rules restrict any use of the information to criminally investigate or prosecute any alcohol or drug abuse patient.[facility]In the event this information is protected by the Federal Confidentiality of Alcohol and Drug Abuse Patient Records regulations: The Federal rules restrict any use of the information to criminally investigate or prosecute any alcohol or drug abuse patient.[facility]In the event this information is protected by the Federal Confidentiality of Alcohol and Drug Abuse Patient Records regulations: The Federal rules restrict any use of the information to criminally investigate or prosecute any alcohol or drug abuse patient.[facility]In the event this information is protected by the Federal Confidentiality of Alcohol and Drug Abuse Patient Records regulations: The Federal rules restrict any use of the information to criminally investigate or prosecute any alcohol or drug abuse patient.[facility]In the event this information is protected by the Federal Confidentiality of Alcohol and Drug Abuse Patient Records regulations: The Federal rules restrict any use of the information to criminally investigate or prosecute any alcohol or drug abuse patient.[facility]In the event this information is protected by the Federal Confidentiality of Alcohol and Drug Abuse Patient Records regulations: The Federal rules restrict any use of the information to criminally investigate or prosecute any alcohol or drug abuse patient.[facility]In the event this information is protected by the Federal Confidentiality of Alcohol and Drug Abuse Patient Records regulations: The Federal rules restrict any use of the information to criminally investigate or prosecute any alcohol or drug abuse patient.[facility]In the event this information is protected by the Federal Confidentiality of Alcohol and Drug Abuse Patient Records regulations: The Federal rules restrict any use of the information to criminally investigate or prosecute any alcohol or drug abuse patient.[facility]In the event this information is protected by the Federal Confidentiality of Alcohol and Drug Abuse Patient Records regulations: The Federal rules restrict any use of the information to criminally investigate or prosecute any alcohol or drug abuse patient.[facility]In the event this information is protected by the Federal Confidentiality of Alcohol and Drug Abuse Patient Records regulations: The Federal rules restrict any use of the information to criminally investigate or prosecute any alcohol or drug abuse patient.[facility]In the event this information is protected by the Federal Confidentiality of Alcohol and Drug Abuse Patient Records regulations: The Federal rules restrict any use of the information to criminally investigate or prosecute any alcohol or drug abuse patient.[facility]In the event this information is protected by the Federal Confidentiality of Alcohol and Drug Abuse Patient Records regulations: The Federal rules restrict any use of the information to criminally investigate or prosecute any alcohol or drug abuse patient.[facility]In the event this information is protected by the Federal Confidentiality of Alcohol and Drug Abuse Patient Records regulations: The Federal rules restrict any use of the information to criminally investigate or prosecute any alcohol or drug abuse patient.[facility]In the event this information is protected by the Federal Confidentiality of Alcohol and Drug Abuse Patient Records regulations: The Federal rules restrict any use of the information to criminally investigate or prosecute any alcohol or drug abuse patient.[facility]In the event this information is protected by the Federal Confidentiality of Alcohol and Drug Abuse Patient Records regulations: The Federal rules restrict any use of the information to criminally investigate or prosecute any alcohol or drug abuse patient.[facility]In the event this information is protected by the Federal Confidentiality of Alcohol and Drug Abuse Patient Records regulations: The Federal rules restrict any use of the information to criminally investigate or prosecute any alcohol or drug abuse patient.[facility]In the event this information is protected by the Federal Confidentiality of Alcohol and Drug Abuse Patient Records regulations: The Federal rules restrict any use of the information to criminally investigate or prosecute any alcohol or drug abuse patient.[facility]In the event this information is protected by the Federal Confidentiality of Alcohol and Drug Abuse Patient Records regulations: The Federal rules restrict any use of the information to criminally investigate or prosecute any alcohol or drug abuse patient.[facility]In the event this information is protected by the Federal Confidentiality of Alcohol and Drug Abuse Patient Records regulations: The Federal rules restrict any use of the information to criminally investigate or prosecute any alcohol or drug abuse patient.[facility] HospitalIn the event this information is protected by the Federal Confidentiality of Alcohol and Drug Abuse Patient Records regulations: The Federal rules restrict any use of the information to criminally investigate or prosecute any alcohol or drug abuse patient.[facility] HospitalIn the event this information is protected by the Federal Confidentiality of Alcohol and Drug Abuse Patient Records regulations: The Federal rules restrict any use of the information to criminally investigate or prosecute any alcohol or drug abuse patient.[facility] HospitalIn the event this information is protected by the Federal Confidentiality of Alcohol and Drug Abuse Patient Records regulations: The Federal rules restrict any use of the information to criminally investigate or prosecute any alcohol or drug abuse patient.[facility] HospitalIn the event this information is protected by the Federal Confidentiality of Alcohol and Drug Abuse Patient Records regulations: The Federal rules restrict any use of the information to criminally investigate or prosecute any alcohol or drug abuse patient.[facility] HospitalIn the event this information is protected by the Federal Confidentiality of Alcohol and Drug Abuse Patient Records regulations: The Federal rules restrict any use of the information to criminally investigate or prosecute any alcohol or drug abuse patient.[facility] HospitalIn the event this information is protected by the Federal Confidentiality of Alcohol and Drug Abuse Patient Records regulations: The Federal rules restrict any use of the information to criminally investigate or prosecute any alcohol or drug abuse patient.[facility] HospitalIn the event this information is protected by the Federal Confidentiality of Alcohol and Drug Abuse Patient Records regulations: The Federal rules restrict any use of the information to criminally investigate or prosecute any alcohol or drug abuse patient.[facility] HospitalIn the event this information is protected by the Federal Confidentiality of Alcohol and Drug Abuse Patient Records regulations: The Federal rules restrict any use of the information to criminally investigate or prosecute any alcohol or drug abuse patient.[facility] HospitalIn the event this information is protected by the Federal Confidentiality of Alcohol and Drug Abuse Patient Records regulations: The Federal rules restrict any use of the information to criminally investigate or prosecute any alcohol or drug abuse patient.[facility] HospitalIn the event this information is protected by the Federal Confidentiality of Alcohol and Drug Abuse Patient Records regulations: The Federal rules restrict any use of the information to criminally investigate or prosecute any alcohol or drug abuse patient.[facility] HospitalIn the event this information is protected by the Federal Confidentiality of Alcohol and Drug Abuse Patient Records regulations: The Federal rules restrict any use of the information to criminally investigate or prosecute any alcohol or drug abuse patient.[facility] HospitalIn the event this information is protected by the Federal Confidentiality of Alcohol and Drug Abuse Patient Records regulations: The Federal rules restrict any use of the information to criminally investigate or prosecute any alcohol or drug abuse patient.[facility] HospitalIn the event this information is protected by the Federal Confidentiality of Alcohol and Drug Abuse Patient Records regulations: The Federal rules restrict any use of the information to criminally investigate or prosecute any alcohol or drug abuse patient.[facility] HospitalIn the event this information is protected by the Federal Confidentiality of Alcohol and Drug Abuse Patient Records regulations: The Federal rules restrict any use of the information to criminally investigate or prosecute any alcohol or drug abuse patient.[facility] HospitalIn the event this information is protected by the Federal Confidentiality of Alcohol and Drug Abuse Patient Records regulations: The Federal rules restrict any use of the information to criminally investigate or prosecute any alcohol or drug abuse patient.[facility] HospitalIn the event this information is protected by the Federal Confidentiality of Alcohol and Drug Abuse Patient Records regulations: The Federal rules restrict any use of the information to criminally investigate or prosecute any alcohol or drug abuse patient.[facility] HospitalIn the event this information is protected by the Federal Confidentiality of Alcohol and Drug Abuse Patient Records regulations: The Federal rules restrict any use of the information to criminally investigate or prosecute any alcohol or drug abuse patient.[facility] HospitalIn the event this information is protected by the Federal Confidentiality of Alcohol and Drug Abuse Patient Records regulations: The Federal rules restrict any use of the information to criminally investigate or prosecute any alcohol or drug abuse patient.[facility] HospitalIn the event this information is protected by the Federal Confidentiality of Alcohol and Drug Abuse Patient Records regulations: The Federal rules restrict any use of the information to criminally investigate or prosecute any alcohol or drug abuse patient.[facility] HospitalIn the event this information is protected by the Federal Confidentiality of Alcohol and Drug Abuse Patient Records regulations: The Federal rules restrict any use of the information to criminally investigate or prosecute any alcohol or drug abuse patient.[facility] HospitalIn the event this information is protected by the Federal Confidentiality of Alcohol and Drug Abuse Patient Records regulations: The Federal rules restrict any use of the information to criminally investigate or prosecute any alcohol or drug abuse patient.[facility] HospitalIn the event this information is protected by the Federal Confidentiality of Alcohol and Drug Abuse Patient Records regulations: The Federal rules restrict any use of the information to criminally investigate or prosecute any alcohol or drug abuse patient.[facility] HospitalIn the event this information is protected by the Federal Confidentiality of Alcohol and Drug Abuse Patient Records regulations: The Federal rules restrict any use of the information to criminally investigate or prosecute any alcohol or drug abuse patient.[facility] HospitalIn the event this information is protected by the Federal Confidentiality of Alcohol and Drug Abuse Patient Records regulations: The Federal rules restrict any use of the information to criminally investigate or prosecute any alcohol or drug abuse patient.[facility] HospitalIn the event this information is protected by the Federal Confidentiality of Alcohol and Drug Abuse Patient Records regulations: The Federal rules restrict any use of the information to criminally investigate or prosecute any alcohol or drug abuse patient.[facility] HospitalIn the event this information is protected by the Federal Confidentiality of Alcohol and Drug Abuse Patient Records regulations: The Federal rules restrict any use of the information to criminally investigate or prosecute any alcohol or drug abuse patient.[facility] HospitalIn the event this information is protected by the Federal Confidentiality of Alcohol and Drug Abuse Patient Records regulations: The Federal rules restrict any use of the information to criminally investigate or prosecute any alcohol or drug abuse patient.[facility] HospitalIn the event this information is protected by the Federal Confidentiality of Alcohol and Drug Abuse Patient Records regulations: The Federal rules restrict any use of the information to criminally investigate or prosecute any alcohol or drug abuse patient.[facility] HospitalIn the event this information is protected by the Federal Confidentiality of Alcohol and Drug Abuse Patient Records regulations: The Federal rules restrict any use of the information to criminally investigate or prosecute any alcohol or drug abuse patient.[facility] HospitalIn the event this information is protected by the Federal Confidentiality of Alcohol and Drug Abuse Patient Records regulations: The Federal rules restrict any use of the information to criminally investigate or prosecute any alcohol or drug abuse patient.[facility] HospitalIn the event this information is protected by the Federal Confidentiality of Alcohol and Drug Abuse Patient Records regulations: The Federal rules restrict any use of the information to criminally investigate or prosecute any alcohol or drug abuse patient.[facility] HospitalIn the event this information is protected by the Federal Confidentiality of Alcohol and Drug Abuse Patient Records regulations: The Federal rules restrict any use of the information to criminally investigate or prosecute any alcohol or drug abuse patient.[facility] HospitalIn the event this information is protected by the Federal Confidentiality of Alcohol and Drug Abuse Patient Records regulations: The Federal rules restrict any use of the information to criminally investigate or prosecute any alcohol or drug abuse patient.[facility] HospitalIn the event this information is protected by the Federal Confidentiality of Alcohol and Drug Abuse Patient Records regulations: The Federal rules restrict any use of the information to criminally investigate or prosecute any alcohol or drug abuse patient.[facility] HospitalIn the event this information is protected by the Federal Confidentiality of Alcohol and Drug Abuse Patient Records regulations: The Federal rules restrict any use of the information to criminally investigate or prosecute any alcohol or drug abuse patient.[facility] HospitalIn the event this information is protected by the Federal Confidentiality of Alcohol and Drug Abuse Patient Records regulations: The Federal rules restrict any use of the information to criminally investigate or prosecute any alcohol or drug abuse patient.[facility] HospitalIn the event this information is protected by the Federal Confidentiality of Alcohol and Drug Abuse Patient Records regulations: The Federal rules restrict any use of the information to criminally investigate or prosecute any alcohol or drug abuse patient.[facility] HospitalIn the event this information is protected by the Federal Confidentiality of Alcohol and Drug Abuse Patient Records regulations: The Federal rules restrict any use of the information to criminally investigate or prosecute any alcohol or drug abuse patient.[facility] HospitalIn the event this information is protected by the Federal Confidentiality of Alcohol and Drug Abuse Patient Records regulations: The Federal rules restrict any use of the information to criminally investigate or prosecute any alcohol or drug abuse patient.[facility] Reason for Visit (unrecogniz ed section and content) Reason Comments Physical Therapy Specialty Diagnoses / Procedures Referred By Contac t Referred To Contact [facility] Diagnoses Pelvic floor dysfunction in female Prolapse of intestine Urinary incontinence, unspecified type Procedures CONSULT TO PHYSICAL THERAPY PHYSICAL THERAPY EVALUATION HIGH COMPLEX 45 MINS Edenilson Nicholson, DO [address] [place] [address] [facility] [address] [place] [address] Referral ID Status Reason Start Date Expiration Date Visits Requested Visits Authorized [id number] Authorized Auto-Generat ed Referral 03/04/2021 03/03/2022 99 99 Reason Comments PT Progress Note Reason Comments Left Hip Pain x last night Rib Injury x last night Reason Comments Back Pain Started on Saturday e vening states was pulling on exercise bands that were not attached very well to door knob and lost balance when bands gave away and she fell backwards landing on right side. Pain on left side of lower back. Reason Comments Results Reason Comments Opened In Error Reason Comments Follow Up 3 month Reason Onset Date Comments Refill Request 06/28/2021 Reason Comments Established Patient Follow Up Knee Replacement Reason Onset Date Comments Refill Request 07/19/2021 Reason Comments Results Reason Comments Ear Problem left ear Foot Pain (Midfoot) top of left foot Mouth/Lip Problem Throat Problem Urinary Frequency Reason Comments New Pain Specialty Diagnoses / Procedures Referred By Contac t Referred To Contact Podiatry / PODIATRY Diagnoses Foot pain, left Erythema of foot Procedures CONSULT TO PODIATRY OFFICE/OUTPATIENT NEW HIGH MDM 60-74 MINUTES Kandi Contreras, PARMJIT.SHIP KEEPER [address] [place] [address] [facility] [address] [place] [address] Referral ID Status Reason Start Date Expiration Date Visits Requested Visits Authorized [id number] Pending Review PCP Requested Referral 07/21/2021 07/21/2022 1 1 Reason Comments Acute Visit cat scratch on L sage d x 1 day Reason Comments Refill Request Reason Comments Established Patient Knee Pain Knee Replacement Reason Onset Date Comments Refill Request 10/12/2021 Reason Onset Date Comments Refill Request 10/20/2021 Reason Comments Diarrhea Reason Onset Date Comments Results 10/29/2021 returning a call 10/29/2021 Reason Comments Diarrhea Since 10/26 Headache Reason Comments Rx refill; not on current med list Reason Comments Foot Swelling Derm Problem Reason Comments Rectal Problem Reason Comments ER F/U Reason Comments Consult [facility] follow up Reason Comments Established Patient Knee Pain Knee Replacement Follow Up Reason Comments UTI Reason Comments Urinary Problem Pt reported frequenc y, burning with urination, onset AM. Reason Comments Epistaxis Reason Comments headache-left side Reason Comments F/U 3 Month Reason Comments Urinary Frequency Frequency and urgenc y x 1 day Reason Comments Follow Up Reason Comments New Patient Consult/urinary freq uency Specialty Diagnoses / Procedures Referred By Contac t Referred To Contact Urology Diagnoses Urinary frequency Procedures CONSULT TO UROLOGY OFFICE/OUTPATIENT NEW HIGH MDM 60-74 MINUTES Johnie Aguirre, PLEASURE CRAFT SAILOR.SHIP KEEPER [address] [place] [address] Referral ID Status Reason Start Date Expiration Date Visits Requested Visits Authorized [id number] Pending Review PCP Requested Referral 2 02/10/2023 1 1 Reason Comments Barky Cough x 3-4 days, frequent urination x this am Reason Comments Radio GI Main HB6 Specialty Diagnoses / Procedures Referred By Contac t Referred To Contact XR IMAGING Diagnoses Rectocele Enterocele Rectal prolapse Procedures XR DEFECOGRAPHY RADIOLOGIC EXAM COLON SINGLE CONTRAST STUDY Yi Gonsalves, PLEASURE CRAFT SAILOR.SHIP KEEPER [address] [place] [address] Xr Imaging Referral ID Status Reason Start Date Expiration Date V isits Requested Visits Authorized [id number] Closed Auto-Generate d Referral 12/06/2021 01/05/2023 1 1 Reason Onset Date Comments Opened In Error 03/22/2022 Reason Comments Medication Problem Reason Comments Mouth/Lip Problem Sore and red bottoms gums x this AM Reason Comments Patient Update Reason Comments Patient Question Reason Comments Manometry Reason Comments Established Patient Specialty Diagnoses / Procedures Referred By Contac t Referred To Contact Colon and Rectal Surgery Diagnoses Rectal prolapse Procedures CONSULT TO COLO-RECTAL SURGERY OFFICE/OUTPATIENT NEW HIGH MDM 60-74 MINUTES Yi Gonsalves APRN.SHIP KEEPER [address] [place] [id number] Referral ID Status Reason Start Date Expiration Date Visits Requested Visits Authorized [id number] Pending Review PCP Requested Referral 12/06/2021 12/06/2022 1 1 Reason Comments Leg Pain 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 Reason Comments Medication Question Reason Comments New Patient Reason Onset Date Comments Community Monitoring Outreach 05/21/2022 En rollment H@H Reason Onset Date Comments Refill Request 05/22/2022 Reason Onset Date Comments Refill Request 06/09/2022 Reason Comments Anxiety Reason Comments Anxiety Cough Morning & evening x 1 month Leg Pain Right x month, no in jury Reason Onset Date Comments Refill Request 07/11/2022 Reason Comments Rash All over x 1.5 weeks Reason Comments F/U 3 Month Reason Onset Date Comments Refill Request 08/30/2022 Reason Comments Cough Reason Comments Cough 2 weeks, getting wor se. Productive for the past 2 days Insect Bite Bee sting x 2 last n ight. Left shoulder, right leg. Derm Problem Derm procedure last week on lip, very sore. Reason Comments Chest Pain Reason Comments Chest Pain Denies shortness of breath Cough Reason Onset Date Comments Refill Request 11/07/2022 Reason Comments Urinary Frequency burning with urinati on Reason Comments Established Patient Reason Comments pre op and post op appts Specialty Diagnoses / Procedures Referred By Contac t Referred To Contact MR IMAGING Diagnoses Cystic mass of pancreas Procedures MRI PANC/ARETHA WO/W IVCON MRI ABDOMEN W/O & W/CONTRAST MATERIAL Edenilson Nicholson, DO [address] [place] [address] [place] [address] Referral ID Status Reason Start Date Expiration Date V isits Requested Visits Authorized [id number] Closed Auto-Generate d Referral 11/28/2022 12/28/2023 [address] Specialty Diagnoses / Procedures [facility] To Contact [facility] IM[facility]ING Diagnoses Chronic cough Rales Procedures CT CHEST WO IVCON DIAGNOSTIC COMPUTED TOMOGRAPHY THORAX W/O CNTRST Edenilson Nicholson, DO [address] [place] [address] [place] [address] Referral ID Status Reason Start Date Expiration Date Visits Re quested Visits Authorized [id number] Closed 11/14/2022 12/29/2022 1 1 Specialty Diagnoses / Procedures [facility] To Contact CT IMAGING Diagnoses Short-term memory loss Word finding difficulty Procedures CT BRAIN WO IVCON CT HEAD/BRAIN W/O CONTRAST MATERIAL Edenilson Nicholson, DO [address] [place] [address] Ct [facility] Referral ID Status Reason Start Date Expiration Date V isits Requested Visits Authorized [id number] Closed Auto-Generate d Referral 08/01/2022 08/31/2023 1 1 Reason Comments Schedule Surgery Reason Comments Knee Replacement Established Patient Knee Pain Reason Comments Knee Pain Established Patient Knee Replacement Reason Comments Results Reason Comments Question Reason Comments fall Hit above eye area g lasses cut has on stitch per . Happened 2 days ago saturday , they told then 2-3 days needed looked at by pcp Reason Comments suture removal One stitch above lef t eye Reason Onset Date Comments Refill Request 02/05/2023 Reason Onset Date Comments Refill Request 02/06/2023 Reason Comments ER follow up abdominal pain Reason Comments Results Appointment Patient Question Specialty Diagnoses / Procedures [facility] Referred To Contact MR IMAGING Diagnoses Pancreas cyst Cystic mass of pancreas Abnormal MRI of abdomen Procedures MRI PANC/ARETHA WO/W IVCON MRI ABDOMEN W/O & W/CONTRAST MATERIAL Edenilson Nicholson, DO [address] [place] [address] [place] [address] Referral ID Status Reason Start Date Expiration Date V isits Requested Visits Authorized [id number] Closed Auto-Generate d Referral 05/20/2023 02/15/2024 1 1 Reason Comments Patient Update Medication Problem Reason Comments Information Reason Comments Follow Up Abd pain Reason Comments Cough X 5 days, seems to b e worsening, bumps on aretha legs x 2 weeks ago. Reason Comments Urinary Symptoms Reason Comments UTI Frequency and urgenc y x 1 day, no pain or burning Reason Comments Abdominal Pain Intermittent mid upp er abd pain and nausea x months reports urinary frequency x few days. Reason Onset Date Comments Refill Request 08/01/2023 requesting medication no longer on list 08/01/19 Reason Onset Date Comments Refill Request 08/02/2023 Reason Onset Date Comments Refill Request 08/09/2023 Reason Comments Abdominal Pain Reason Comments Appointment Needs pancreas clini c Reason Comments Cough X 2 days Reason Onset Date Comments Refill Request 11/08/2023 Reason Comments New Patient Evaluation Reason Onset Date Comments Refill Request 11/18/2023 Reason Comments Pain Right foot, back of heel Reason Comments Radio Gen RMP Specialty Diagnoses / Procedures Referred By Contac t Referred To Contact XR IMAGING Diagnoses Inflammatory arthritis Pain in joint, multiple sites Procedures XR HAND GENERAL 3V PA/LAT/OBL BILATERAL RADEX HAND MINIMUM [address] [place] [address] [place] [address] [place] [address] Referral ID Status Reason Start Date Expiration Date V isits Requested Visits Authorized [id number] Closed Auto-Generate d Referral 05/02/2021 06/01/2022 1 1 Reason Comments ER F/U Nausea & Vomiting Reason Comments Psoriatic Arthritis Follow up Reason Comments Patient Call Reason Comments Urinary Frequency x 1 day, spot of rig ht ankle x 1 month Reason Onset Date Comments Refill Request 12/27/2023 Reason Comments Urinary Problem Frequency x 1 week Derm Problem R heel skin issues, no improvement x 1 month Reason Onset Date Comments Refill Request 01/10/2024 Reason Comments Infection Reason Comments Urinary Frequency Rash R heel, warm to touc h, red and swollen, saw [facility] and was prescribed Tapinarof cream, Derm took Cx- neg Reason Comments Mouth Sores X 1 day Reason Comments urine problem Reason Comments ER F/U Left side abd pain, muscle strain Reason Comments Insurance Authorization Reason Onset Date Comments Refill Request 04/02/2024 Reason Comments PT Eval Specialty Diagnoses / Procedures Referred By Contac t Referred To Contact [facility] Diagnoses Acute left-sided low back pain without sciatica Procedures CONSULT TO PHYSICAL THERAPY PHYSICAL THERAPY EVALUATION HIGH COMPLEX 45 MINS Angeline Monterroso APRN.SHIP KEEPER [address] [place] [address] [facility] [address] [place] [address] Referral ID Status Reason Start Date Expiration Date Visits Requested Visits Authorized [id number] Authorized Auto-Generat ed Referral 03/04/2024 03/03/2025 99 99 Reason Comments Patient Update Appointment Reason Comments URI Cough Productive Reason Onset Date Comments Results 04/16/2024 Reason Comments Cough Lower left back side pain x 1 weekFrequency x 1 day Reason Onset Date Comments Results 04/27/2024 Reason Onset Date Comments Refill Request 04/29/2024 Reason Comments Urinary Frequency For about 2-3 days c ompleted celphalexin on 05/03 Reason Onset Date Comments Refill Request 06/03/2024 Reason Comments ER F/U Abd pain Leg Pain Left leg x months Reason Onset Date Comments Results 06/09/2024 Reason Comments 6 Month Exam Reason Comments Ankle Injury fell in hole x last night Reason Comments Results Lumbar MRI Reason Onset Date Comments Results 08/05/2024 Reason Comments Derm Problem Bump on right cheek x 3 days Care Teams (unrecognized sec tion and content) Hotshot Superintendent Relationship Specialty Start Date End Date Edenilson Nicholson DO [address] [place] [address] PCP - General Family Practice 05/23/16 Ino Purdy MD [address] [place] [address] Home Care Physician Orthopedics 03/29/20 Fermín Cartwright MD [address] [place] [address] Referring Orthopedics 03/29/20 Magnolia Preciado, PT [address] [place] [address] Health Professor Post Acute Care 03/29/20 Hotshot Superintendent Relationship Specialty Start Date End Date Edenilson Nicholson DO [address] [place], [place] [id number] PCP - General Family Practice 05/23/16 Ino Purdy MD [address] [place] [address] Home Care Physician Orthopedics 03/29/20 Fermín Cartwright MD [address] [place] [address] Referring Orthopedics 03/29/20 Magnolia Preciado, PT [address] [place] [address] Health Professor Post Acute Care 03/29/20 Hotshot Superintendent Relationship Specialty Start Date End Date Edenilson Nicholson, DO [address] [place] [address] PCP - General Family Practice 05/23/16 Ino Purdy MD [address] [place] [address] Home Care Physician Orthopedics 03/29/20 Fermín Cartwright MD [address] [place] [address] Referring Orthopedics 03/29/20 Magnolia Preciado, PT [address] [place] [address] Health Professor Post Acute Care 03/29/20 Hotshot Superintendent Relationship Specialty Start Date End Date Edenilson Nicholson, DO [address] [place] [address] PCP - General Family Practice 05/23/16 Ino Purdy MD [address] [place] [address] Home Care Physician Orthopedics 03/29/20 Fermín Cartwright MD [address] [place] [address] Referring Orthopedics 03/29/20 Magnolia Preciado, PT [address] [place] [address] Health Professor Post Acute Care 03/29/20 Hotshot Superintendent Relationship Specialty Start Date End Date Edenilson Nicholson, DO [address] [facility] [address] PCP - General Family Practice 05/23/16 Ino Purdy MD [address] [place] [address] Home Care Physician Orthopedics 03/29/20 Fermín Cartwright MD [address] [place] [address] Referring Orthopedics 03/29/20 Magnolia Preciado, PT [address] [place] [address] Health Professor Post Acute Care 03/29/20 Hotshot Superintendent Relationship Specialty Start Date End Date Edenilson Nicholson, DO [address] [place] [address] PCP - General Family Practice 05/23/16 Ino Purdy MD [address] [place] [address] Home Care Physician Orthopedics 03/29/20 Fermín Cartwright MD [address] [place] [address] Referring Orthopedics 03/29/20 Magnolia Preciado, PT [address] [place] [address] Health Professor Post Acute Care 03/29/20 Hotshot Superintendent Relationship Specialty Start Date End Date Edenilson Nicholson, DO [address] [place] [address] PCP - General Family Practice 05/23/16 Ino Purdy MD [address] [place] [address] Home Care Physician Orthopedics 03/29/20 Fermín Cartwright MD [address] [place] [address] Referring Orthopedics 03/29/20 Magnolia Preciado, PT [address] [place] [address] Health Professor Post Acute Care 03/29/20 Hotshot Superintendent Relationship Specialty Start Date End Date Edenilson Nicholson, DO [address] [place] [address] PCP - General Family Practice 05/23/16 Ino Purdy MD [address] [place] [address] Home Care Physician Orthopedics 03/29/20 Fermín Cartwright MD [address] [place] [address] Referring Orthopedics 03/29/20 Magnolia Preciado, PT [address] [place] [address] Health Professor Post Acute Care 03/29/20 Hotshot Superintendent Relationship Specialty Start Date End Date Edenilson Nicholson, DO [address] [place] [address] PCP - General Family Practice 05/23/16 Ino Purdy MD [address] [place] [address] Home Care Physician Orthopedics 03/29/20 Fermín Cartwright MD [address] [place] [address] Referring Orthopedics 03/29/20 Magnolia Preciado, PT [address] [place] [address] Health Professor Post Acute Care 03/29/20 Hotshot Superintendent Relationship Specialty Start Date End Date Edenilson Nicholson, DO [address] [place] [address] PCP - General Family Practice 05/23/16 Ino Purdy MD [address] [place] [address] Home Care Physician Orthopedics 03/29/20 Fermín Cartwright MD [address] [place] [address] Referring Orthopedics 03/29/20 Magnolia Preciado, PT [address] [place] [address] Health Professor Post Acute Care 03/29/20 Hotshot Superintendent Relationship Specialty Start Date End Date Edenilson Nicholson, DO [address] [place] [address] PCP - General Family Practice 05/23/16 Ino Purdy MD [address] [place] [address] Home Care Physician Orthopedics 03/29/20 Fermín Cartwright MD [address] [place] [address] Referring Orthopedics 03/29/20 Magnolia Preciado, PT [address] [place] [address] Health Professor Post Acute Care 03/29/20 Hotshot Superintendent Relationship Specialty Start Date End Date Edenilson Nicholson, DO [address] [place] [address] PCP - General Family Practice 05/23/16 Ino Purdy MD [address] [place] [address] Home Care Physician Orthopedics 03/29/20 Fermín Cartwright MD [address] [place] [address] Referring Orthopedics 03/29/20 Magnolia Preciado, PT [address] [place] [address] Health Professor Post Acute Care 03/29/20 Hotshot Superintendent Relationship Specialty Start Date End Date Edenilson Nicholson, DO [address] [place] [address] PCP - General Family Practice 05/23/16 Ino Purdy MD [address] [place] [address] Home Care Physician Orthopedics 03/29/20 Fermín Cartwright MD [address] [place] [address] Referring Orthopedics 03/29/20 Magnolia Preciado, PT [address] [place] [address] Health Professor Post Acute Care 03/29/20 Hotshot Superintendent Relationship Specialty Start Date End Date Edenilson Nicholson, DO [address] [place] [address] PCP - General Family Practice 05/23/16 Ino Purdy MD [address] [place] [address] Home Care Physician Orthopedics 03/29/20 Fermín Cartwright MD [address] [place] [address] Referring Orthopedics 03/29/20 Magnolia Preciado, PT [address] [place] [address] Health Professor Post Acute Care 03/29/20 Hotshot Superintendent Relationship Specialty Start Date End Date Edenilson Nicholson DO [address] [place] [address] PCP - General Family Practice 05/23/16 Ino Purdy MD [address] [place] [address] Home Care Physician Orthopedics 03/29/20 Fermín Cartwright MD [address] [place] [address] Referring Orthopedics 03/29/20 Magnolia Preciado, PT [address] [place] [address] Health Professor Post Acute Care 03/29/20 Hotshot Superintendent Relationship Specialty Start Date End Date Edenilson Nicholson DO [address] [place] [address] PCP - General Family Practice 05/23/16 Ino Purdy MD [address] [place] [address] Home Care Physician Orthopedics 03/29/20 Fermín Cartwright MD [address] [place] [address] Referring Orthopedics 03/29/20 Magnolia Preciado, PT [address] [place] [address] Health Professor Post Acute Care 03/29/20 Hotshot Superintendent Relationship Specialty Start Date End Date Edenilson Nicholson, DO [address] [place] [address] PCP - General Family Practice 05/23/16 Ino Purdy MD [address] [place] [address] Home Care Physician Orthopedics 03/29/20 Fermín Cartwright MD [address] [place] [address] Referring Orthopedics 03/29/20 Magnolia Preciado, PT [address] [place] [address] Health Professor Post Acute Care 03/29/20 Hotshot Superintendent Relationship Specialty Start Date End Date Edenilson Nicholson, DO [address] [place] [address] PCP - General Family Practice 05/23/16 Ino Purdy MD [address] [place] [address] Home Care Physician Orthopedics 03/29/20 Fermín Cartwright MD [address] [place] [address] Referring Orthopedics 03/29/20 Magnolia Preciado, PT [address] [place] [address] Health Professor Post Acute Care 03/29/20 Hotshot Superintendent Relationship Specialty Start Date End Date Edenilson Nicholson, DO [address] [facility] [place] [address] PCP - General Family Practice 05/23/16 Ino Purdy MD [address] [place] [address] Home Care Provider Orthopedics 03/29/20 Fermín Cartwright MD [address] [place] [address] Referring Orthopedics 03/29/20 Magnolia Preciado, PT [address] [place] [address] Health Professor Post Acute Care 03/29/20 Hotshot Superintendent Relationship Specialty Start Date End Date Edenilson Nicholson, DO [address] [place] [address] PCP - General Family Medicine 05/23/16 Ino Purdy MD [address] [place] [address] Home Care Provider Orthopedics 03/29/20 Fermín Cartwright MD [address] [place] [address] Referring Orthopedics 03/29/20 Magnolia Preciado, PT [address] [place] [address] Health Professor Post Acute Care 03/29/20 Hotshot Superintendent Relationship Specialty Start Date End Date Edenilson Nicholson, DO [address] [facility] [place] [address] PCP - General Family Medicine 05/23/16 Ino Purdy MD [address] [place] [address] Home Care Provider Orthopedics 03/29/20 Fermín Cartwright MD [address] [place] [address] Referring Orthopedics 03/29/20 Magnolia Preciado, PT [address] [place] [address] Health Professor Post Acute Care 03/29/20 Hotshot Superintendent Relationship Specialty Start Date End Date Edenilson Nicholson, DO [address] [place] [address] PCP - General Family Medicine 05/23/16 Ino Purdy MD [address] [place] [address] Home Care Provider Orthopedics 03/29/20 Fermín Cartwright MD [address] [place] [address] Referring Orthopedics 03/29/20 Magnolia Preciado, PT [address] [place] [address] Health Professor Post Acute Care 03/29/20 Hotshot Superintendent Relationship Specialty Start Date End Date Edenilson Nicholson, DO [address] [place] [address] PCP - General Family Medicine 05/23/16 Ino Purdy MD [address] [place] [address] Home Care Provider Orthopedics 03/29/20 Fermín Cartwright MD [address] [place] [address] Referring Orthopedics 03/29/20 Magnolia Preciado, PT [address] [place] [address] Health Professor Post Acute Care 03/29/20 Hotshot Superintendent Relationship Specialty Start Date End Date Edenilson Nicholson, DO [address] [place] [address] PCP - General Family Medicine 05/23/16 Ino Purdy MD [address] [place] [address] Home Care Provider Orthopedics 03/29/20 Fermín Cartwright MD [address] [place] [address] Referring Orthopedics 03/29/20 Magnolia Preciado, PT [address] [place] [address] Health Professor Post Acute Care 03/29/20 Hotshot Superintendent Relationship Specialty Start Date End Date Edenilson Nicholson, DO [address] [facility] [address] PCP - General Family Medicine 05/23/16 Ino Purdy MD [address] [place] [address] Home Care Provider Orthopedics 03/29/20 Fermín Cartwright MD [address] [place] [address] Referring Orthopedics 03/29/20 Magnolia Preciado, PT [address] [place] [address] Health Professor Post Acute Care 03/29/20 Hotshot Superintendent Relationship Specialty Start Date End Date Edenilson Nicholson, DO [address] [place] [address] PCP - General Family Medicine 05/23/16 Ino Purdy MD [address] [place] [address] Home Care Provider Orthopedics 03/29/20 Fermín Cartwright MD [address] [place] [address] Referring Orthopedics 03/29/20 Magnolia Preciado, PT [address] [place] [address] Health Professor Post Acute Care 03/29/20 Hotshot Superintendent Relationship Specialty Start Date End Date Edenilson Nicholson, DO [address] [facility] [address] PCP - General Family Medicine 05/23/16 Ino Purdy MD [address] [place] [address] Home Care Provider Orthopedics 03/29/20 Fermín Cartwright MD [address] [place] [address] Referring Orthopedics 03/29/20 Magnolia Preciado, PT [address] [facility] [place] [address] Health Professor Post Acute Care 03/29/20 Hotshot Superintendent Relationship Specialty Start Date End Date Edenilson Nicholson, DO [address] [facility] [address] PCP - General Family Medicine 05/23/16 Ino Purdy MD [address] [place] [address] Home Care Provider Orthopedics 03/29/20 Fermín Cartwright MD [address] [place] [address] Referring Orthopedics 03/29/20 Magnolia Preciado, PT [address] [place] [address] Health Professor Post Acute Care 03/29/20 Hotshot Superintendent Relationship Specialty Start Date End Date Edenilson Nicholson, DO [address] [facility] [address] PCP - General Family Medicine 05/23/16 Ino Purdy MD [address] [place] [address] Home Care Provider Orthopedics 03/29/20 Fermín Cartwright MD [address] [place] [address] Referring Orthopedics 03/29/20 Magnolia Preciado, PT [address] [place] [address] Health Professor Post Acute Care 03/29/20 Hotshot Superintendent Relationship Specialty Start Date End Date Edenilson Nicholson, DO [address] [facility] [address] PCP - General Family Medicine 05/23/16 Ino Purdy MD [address] [place] [address] Home Care Provider Orthopedics 03/29/20 Fermín Cartwright MD [address] [place] [address] Referring Orthopedics 03/29/20 Magnolia Preciado, PT [address] [place] [address] Health Professor Post Acute Care 03/29/20 Hotshot Superintendent Relationship Specialty Start Date End Date Edenilson Nicholson, DO [address] [place] [address] PCP - General Family Medicine 05/23/16 Ino Purdy MD [address] [place] [address] Home Care Provider Orthopedics 03/29/20 Fermín Cartwright MD [address] [place] [address] Referring Orthopedics 03/29/20 Magnolia Preciado, PT [address] [place] [address] Health Professor Post Acute Care 03/29/20 Hotshot Superintendent Relationship Specialty Start Date End Date Edenilson Nicholson, DO [address] [place] [address] PCP - General Family Medicine 05/23/16 Ino Purdy MD [address] [place] [address] Home Care Provider Orthopedics 03/29/20 Fermín Cartwright MD [address] [place] [address] Referring Orthopedics 03/29/20 Magnolia Preciado, PT [address] [place] [address] Health Professor Post Acute Care 03/29/20 Hotshot Superintendent Relationship Specialty Start Date End Date Edenilson Nicholson, DO [address] [facility] [address] PCP - General Family Medicine 05/23/16 Ino Purdy MD [address] [facility] [address] Home Care Provider Orthopedics 03/29/20 Fermín Cartwright MD [address] [place] [address] Referring Orthopedics 03/29/20 Magnolia Preciado, PT [address] [place] [address] Health Professor Post Acute Care 03/29/20 Hotshot Superintendent Relationship Specialty Start Date End Date Edenilson Nicholson, DO [address] [place] [address] PCP - General Family Medicine 05/23/16 Ino Purdy MD [address] [facility] [address] Home Care Provider Orthopedics 03/29/20 Fermín Cartwright MD [address] [place] [address] Referring Orthopedics 03/29/20 Magnolia Preciado, PT [address] [place] [address] Health Professor Post Acute Care 03/29/20 Hotshot Superintendent Relationship Specialty Start Date End Date Edenilson Nicholson, DO [address] [place] [address] PCP - General Family Medicine 05/23/16 Ino Purdy MD [address] [place] [address] Home Care Provider Orthopedics 03/29/20 Fermín Cartrwight MD [address] [place] [address] Referring Orthopedics 03/29/20 Magnolia Preciado, PT [address] [place] [address] Health Professor Post Acute Care 03/29/20 Team Status: Active Member Role Status Dates Dr. Edenilson Nicholson , Family Provider Active Dr. Edenilson Nicholson DO Primary Care Provider Active Team Status: Inactive Member Role Status Dates Dr. Edenilson Nicholson , DO Primary Care Provider Active Dr. Dina Olea MD Attending Provider, Referring Provider Active Hotshot Superintendent Relationship Specialty Start Date End Date Edenilson Nicholson, DO [address] [place] [address] PCP - General Family Medicine 05/23/16 Ino Purdy MD [address] [place] [address] Home Care Provider Orthopedics 03/29/20 Fermín Cartwright MD [address] [place] [address] Referring Orthopedics 03/29/20 Magnolia Preciado, PT [address] [place] [address] Health Professor Post Acute Care 03/29/20 Hotshot Superintendent Relationship Specialty Start Date End Date Edenilson Nicholson DO [address] [place] [address] PCP - General Family Medicine 05/23/16 Ino Purdy MD [address] [place] [address] Home Care Provider Orthopedics 03/29/20 Fermín Cartwright MD [address] [place] [address] Referring Orthopedics 03/29/20 Magnolia Preciado, PT [address] [place] [address] Health Professor Post Acute Care 03/29/20 Hotshot Superintendent Relationship Specialty Start Date End Date Edenilson Nicholson DO [address] [place] [address] PCP - General Family Medicine 05/23/16 Ino Purdy MD [address] [place] [address] Home Care Provider Orthopedics 03/29/20 Fermín Cartwright MD [address] [place] [address] Referring Orthopedics 03/29/20 Magnolia Preciado, PT [address] [place] [address] Health Professor Post Acute Care 03/29/20 Hotshot Superintendent Relationship Specialty Start Date End Date Edenilson Nicholson, DO [address] [place] [address] PCP - General Family Medicine 05/23/16 Ino Purdy MD [address] [place] [address] Home Care Provider Orthopedics 03/29/20 Fermín Cartwright MD [address] [place] [address] Referring Orthopedics 03/29/20 Magnolia Preciado, PT [address] [place] [address] Health Professor Post Acute Care 03/29/20 Hotshot Superintendent Relationship Specialty Start Date End Date Edenilson Nicholson, DO [address] [place] [address] PCP - General Family Medicine 05/23/16 Ino Purdy MD [address] [place] [address] Home Care Provider Orthopedics 03/29/20 Fermín Cartwright MD [address] [place] [address] Referring Orthopedics 03/29/20 Magnolia Preciado, PT [address] [place] [address] Health Professor Post Acute Care 03/29/20 Hotshot Superintendent Relationship Specialty Start Date End Date Edenilson Nicholson DO [address] [place] [address] PCP - General Family Medicine 05/23/16 Ino Purdy MD [address] [place] [address] Home Care Provider Orthopedics 03/29/20 Fermín Cartwright MD [address] [place] [address] Referring Orthopedics 03/29/20 Magnolia Preciado, PT [address] [place] [address] Health Professor Post Acute Care 03/29/20 Hotshot Superintendent Relationship Specialty Start Date End Date Edenilson Nicholson DO [address] [place] [address] PCP - General Family Medicine 05/23/16 Ino Purdy MD [address] [place] [address] Home Care Provider Orthopedics 03/29/20 Fermín Cartwright MD [address] [place] [address] Referring Orthopedics 03/29/20 Magnolia Preciado, PT [address] [place] [address] Health Professor Post Acute Care 03/29/20 Team Status: Inactive Member Role Status Dates Dr. Edenilson Nicholson DO Primary Care Provider Active Dr. Dina Olea MD Attending Provider Active Hotshot Superintendent Relationship Specialty Start Date End Date Edenilson Nicholson DO [address] [place] [address] PCP - General Family Medicine 05/23/16 Ino Purdy MD [address] [place] [address] Home Care Provider Orthopedics 03/29/20 Fermín Cartwright MD [address] [place] [address] Referring Orthopedics 03/29/20 Magnolia Preciado, PT [address] [place] [address] Health Professor Post Acute Care 03/29/20 Hotshot Superintendent Relationship Specialty Start Date End Date Edenilson Nicholson DO [address] [place] [address] PCP - General Family Medicine 05/23/16 Ino Purdy MD [address] [place] [address] Home Care Provider Orthopedics 03/29/20 Fermín Cartwright MD [address] [place] [address] Referring Orthopedics 03/29/20 Magnolia Preciado, PT [address] [place] [address] Health Professor Post Acute Care 03/29/20 Hotshot Superintendent Relationship Specialty Start Date End Date Edenilson Nicholson DO [address] [place] [address] PCP - General Family Medicine 05/23/16 Ino Purdy MD [address] [place] [address] Home Care Provider Orthopedics 03/29/20 Fermín Cartwright MD [address] [place] [address] Referring Orthopedics 03/29/20 Magnolia Preciado, PT [address] [place] [address] Health Professor Post Acute Care 03/29/20 Hotshot Superintendent Relationship Specialty Start Date End Date Edenilson Nicholson DO [address] [place] [address] PCP - General Family Medicine 05/23/16 Ino Purdy MD [address] [place] [address] Home Care Provider Orthopedics 03/29/20 Fermín Cartwright MD [address] [place] [address] Referring Orthopedics 03/29/20 Magnolia Preciado, PT [address] [place] [address] Health Professor Post Acute Care 03/29/20 Hotshot Superintendent Relationship Specialty Start Date End Date Edenilson Nicholson DO [address] [place] [address] PCP - General Family Medicine 05/23/16 Ino Purdy MD [address] [place] [address] Home Care Provider Orthopedics 03/29/20 Fermín Cartwright MD [address] [place] [address] Referring Orthopedics 03/29/20 Magnolia Preciado, PT [address] [place] [address] Health Professor Post Acute Care 03/29/20 Hotshot Superintendent Relationship Specialty Start Date End Date Edenilson Nicholson DO [address] [place] [address] PCP - General Family Medicine 05/23/16 Ino Purdy MD [address] [place] [address] Home Care Provider Orthopedics 03/29/20 Fermín Cartwright MD [address] [place] [address] Referring Orthopedics 03/29/20 Magnolia Preciado, PT [address] [facility] [place] [address] Health Professor Post Acute Care 03/29/20 Hotshot Superintendent Relationship Specialty Start Date End Date Edenilson Nicholson DO [address] [place] [address] PCP - General Family Medicine 05/23/16 Ino Purdy MD [address] [place] [address] Home Care Provider Orthopedics 03/29/20 Fermín Cartwright MD [address] [place] [address] Referring Orthopedics 03/29/20 Magnolia Preciado, PT [address] [place] [address] Health Professor Post Acute Care 03/29/20 Hotshot Superintendent Relationship Specialty Start Date End Date Edenilson Nicholson DO [address] [place] [address] PCP - General Family Medicine 05/23/16 Ino Purdy MD [address] [place] [address] Home Care Provider Orthopedics 03/29/20 Fermín Cartwright MD [address] [place] [address] Referring Orthopedics 03/29/20 Magnolia Preciado, PT [address] [facility] [place] [address] Health Professor Post Acute Care 03/29/20 Hotshot Superintendent Relationship Specialty Start Date End Date Edenilson Nicholson DO [address] [place] [address] PCP - General Family Medicine 05/23/16 Ino Purdy MD [address] [place] [address] Home Care Provider Orthopedics 03/29/20 Fermín Cartwright MD [address] [place] [address] Referring Orthopedics 03/29/20 Magnolia Preciado, PT [address] [place] [address] Health Professor Post Acute Care 03/29/20 Hotshot Superintendent Relationship Specialty Start Date End Date Edenilson Nicholson DO [address] [place] [address] PCP - General Family Medicine 05/23/16 Ino Purdy MD [address] [place] [address] Home Care Provider Orthopedics 03/29/20 Fermín Cartwright MD [address] [place] [address] Referring Orthopedics 03/29/20 Magnolia Preciado, PT [address] [place] [address] Health Professor Post Acute Care 03/29/20 Hotshot Superintendent Relationship Specialty Start Date End Date Edenilson Nicholson DO [address] [place] [address] PCP - General Family Medicine 05/23/16 Ino Purdy MD [address] [place] [address] Home Care Provider Orthopedics 03/29/20 Fermín Cartwright MD [address] [place] [address] Referring Orthopedics 03/29/20 SashaRoblesIza Magnolia, PT [address] [place] [address] Health Professor Post Acute Care 03/29/20 12/10/22 Hotshot Superintendent Relationship Specialty Start Date End Date Edenilson Nicholson DO [address] [place] [address] PCP - General Family Medicine 05/23/16 nIo Purdy MD [address] [place] [address] Home Care Provider Orthopedics 03/29/20 Fermín Cartwright MD [address] [place] [address] Referring Orthopedics 03/29/20 Hotshot Superintendent Relationship Specialty Start Date End Date Edenilson Nicholson DO [address] [place] [address] PCP - General Family Medicine 05/23/16 Ino Purdy MD [address] [place] [address] Home Care Provider Orthopedics 03/29/20 Fermín Cartwright MD [address] [place] [address] Referring Orthopedics 03/29/20 Hotshot Superintendent Relationship Specialty Start Date End Date Edenilson Nicholson DO [address] [place] [address] PCP - General Family Medicine 05/23/16 Ino Purdy MD [address] [place] [address] Home Care Provider Orthopedics 03/29/20 Fermín Cartwright MD [address] [place] [address] Referring Orthopedics 03/29/20 Magnolia Preciado, PT [address] [place] [address] Health Professor Post Acute Care 03/29/20 12/10/22 Hotshot Superintendent Relationship Specialty Start Date End Date Edenilson Nicholson DO [address] [place] [address] PCP - General Family Medicine 05/23/16 Ino Purdy MD [address] [place] [address] Home Care Provider Orthopedics 03/29/20 Fermín Cartwright MD [address] [place] [address] Referring Orthopedics 03/29/20 Magnolia Preciado, PT [address] [place] [address] Health Professor Post Acute Care 03/29/20 12/10/22 Hotshot Superintendent Relationship Specialty Start Date End Date Edenilson Nicholson DO [address] [place] [address] PCP - General Family Medicine 05/23/16 Ino Purdy MD [address] [place] [address] Home Care Provider Orthopedics 03/29/20 Fermín Cartwright MD [address] [place] [address] Referring Orthopedics 03/29/20 Magnolia Preciado, PT [address] [place] [address] Health Professor Post Acute Care 03/29/20 12/10/22 Hotshot Superintendent Relationship Specialty Start Date End Date Edenilson Nicholson DO [address] [place] [address] PCP - General Family Medicine 05/23/16 Ino Purdy MD [address] [place] [address] Home Care Provider Orthopedics 03/29/20 Fermín Cartwright MD [address] [place] [address] Referring Orthopedics 03/29/20 Magnolia Preciado, PT [address] [place] [address] Health Professor Post Acute Care 03/29/20 12/10/22 Hotshot Superintendent Relationship Specialty Start Date End Date Edenilson Nicholson DO [address] [place] [address] PCP - General Family Medicine 05/23/16 Ino Purdy MD [address] [place] [address] Home Care Provider Orthopedics 03/29/20 Fermín Cartwright MD [address] [place] [address] Referring Orthopedics 03/29/20 Hotshot Superintendent Relationship Specialty Start Date End Date Edenilson Nicholson DO [address] [place] [address] PCP - General Family Medicine 05/23/16 Ino Purdy MD [address] [place] [address] Home Care Provider Orthopedics 03/29/20 Fermín Cartwright MD [address] [place] [address] Referring Orthopedics 03/29/20 Hotshot Superintendent Relationship Specialty Start Date End Date Edenilson Nicholson DO [address] [place] [address] PCP - General Family Medicine 05/23/16 Ino Purdy MD [address] [place] [address] Home Care Provider Orthopedics 03/29/20 Fermín Cartwright MD [address] [place] [address] Referring Orthopedics 03/29/20 Hotshot Superintendent Relationship Specialty Start Date End Date Edenlison Nicholson DO [address] [place] [address] PCP - General Family Medicine 05/23/16 Ino Purdy MD [address] [place] [address] Home Care Provider Orthopedics 03/29/20 Fermín Cartwright MD [address] [place] [address] Referring Orthopedics 03/29/20 Hotshot Superintendent Relationship Specialty Start Date End Date Edenilson Nicholson DO [address] [place] [address] PCP - General Family Medicine 05/23/16 Ino Purdy MD [address] [place] [address] Home Care Provider Orthopedics 03/29/20 Fermín Cartwright MD [address] [place] [address] Referring Orthopedics 03/29/20 Hotshot Superintendent Relationship Specialty Start Date End Date Edenilson Nicholson DO [address] [place] [address] PCP - General Family Medicine 05/23/16 Ino Purdy MD [address] [place] [address] Home Care Provider Orthopedics 03/29/20 Fermín Cartwright MD [address] [place] [address] Referring Orthopedics 03/29/20 Hotshot Superintendent Relationship Specialty Start Date End Date Edenilson Nicholson DO [address] [place] [address] PCP - General Family Medicine 05/23/16 Ino Purdy MD [address] [place] [address] Home Care Provider Orthopedics 03/29/20 Fermín Cartwright MD [address] [place] [address] Referring Orthopedics 03/29/20 Hotshot Superintendent Relationship Specialty Start Date End Date Edenilson Nicholson DO [address] [place] [address] PCP - General Family Medicine 05/23/16 Ino Purdy MD [address] [place] [address] Home Care Provider Orthopedics 03/29/20 Fermín Cartwright MD [address] [place] [address] Referring Orthopedics 03/29/20 Hotshot Superintendent Relationship Specialty Start Date End Date Edenilson Nicholson DO [address] [place] [address] PCP - General Family Medicine 05/23/16 Ino Purdy MD [address] [place] [address] Home Care Provider Orthopedics 03/29/20 Fermín Cartwright MD [address] [place] [address] Referring Orthopedics 03/29/20 Hotshot Superintendent Relationship Specialty Start Date End Date Edenilson Nicholson DO [address] [place] [address] PCP - General Family Medicine 05/23/16 Ino Purdy MD [address] [place] [address] Home Care Provider Orthopedics 03/29/20 Fermín Cartwright MD [address] [place] [address] Referring Orthopedics 03/29/20 Hotshot Superintendent Relationship Specialty Start Date End Date Edenilson Nicholson DO [address] [place] [address] PCP - General Family Medicine 05/23/16 Ino Purdy MD [address] [place] [address] Home Care Provider Orthopedics 03/29/20 Fermín Cartwright MD [address] [place] [address] Referring Orthopedics 03/29/20 Hotshot Superintendent Relationship Specialty Start Date End Date Edenilson Nicholson DO [address] [place] [address] PCP - General Family Medicine 05/23/16 Ino Purdy MD [address] [place] [address] Home Care Provider Orthopedics 03/29/20 Fermín Cartwright MD [address] [place] [address] Referring Orthopedics 03/29/20 Hotshot Superintendent Relationship Specialty Start Date End Date Edenilson Nicholson DO [address] [place] [address] PCP - General Family Medicine 05/23/16 Ino Purdy MD [address] [place] [address] Home Care Provider Orthopedics 03/29/20 Fermín Cartwright MD [address] [place] [address] Referring Orthopedics 03/29/20 Hotshot Superintendent Relationship Specialty Start Date End Date Edenilson Nicholson DO [address] [place] [address] PCP - General Family Medicine 05/23/16 Ino Purdy MD [address] [place] [address] Home Care Provider Orthopedics 03/29/20 Fermín Cartwright MD [address] [place] [address] Referring Orthopedics 03/29/20 Hotshot Superintendent Relationship Specialty Start Date End Date Edenilson Nicholson DO [address] [place] [address] PCP - General Family Medicine 05/23/16 Ino Purdy MD [address] [place] [address] Home Care Provider Orthopedics 03/29/20 Fermín Cartwright MD [address] [place] [address] Referring Orthopedics 03/29/20 Hotshot Superintendent Relationship Specialty Start Date End Date Edenilson Nicholson DO [address] [place] [address] PCP - General Family Medicine 05/23/16 Ino Purdy MD [address] [place] [address] Home Care Provider Orthopedics 03/29/20 Fermín Cartwright MD [address] [place] [address] Referring Orthopedics 03/29/20 Hotshot Superintendent Relationship Specialty Start Date End Date Edenilson Nicholson DO [address] [place] [address] PCP - General Family Medicine 05/23/16 Ino Purdy MD [address] [place] [address] Home Care Provider Orthopedics 03/29/20 Fermín Cartwright MD [address] [place] [address] Referring Orthopedics 03/29/20 Hotshot Superintendent Relationship Specialty Start Date End Date Edenilson Nicholson DO [address] [place] [address] PCP - General Family Medicine 05/23/16 Ino Purdy MD [address] [place] [address] Home Care Provider Orthopedics 03/29/20 Fermín Cartwright MD [address] [place] [address] Referring Orthopedics 03/29/20 Hotshot Superintendent Relationship Specialty Start Date End Date Edenilson Nicholson DO [address] [place] [address] PCP - General Family Medicine 05/23/16 Ino Purdy MD [address] [place] [address] Home Care Provider Orthopedics 03/29/20 Fermín Cartwright MD [address] [place] [id number] Referring Orthopedics 03/29/20 Hotshot Superintendent Relationship Specialty Start Date End Date Edenilson Nicholson DO [address] [place] [address] PCP - General Family Medicine 05/23/16 Ino Purdy MD [address] [place] [address] Home Care Provider Orthopedics 03/29/20 Fermín Cartwright MD [address] [place] [address] Referring Orthopedics 03/29/20 Hotshot Superintendent Relationship Specialty Start Date End Date Edenilson Nicholson DO [address] [place] [address] PCP - General Family Medicine 05/23/16 Ino Purdy MD [address] [place] [address] Home Care Provider Orthopedics 03/29/20 Fermín Cartwright MD [address] [place] [address] Referring Orthopedics 03/29/20 Hotshot Superintendent Relationship Specialty Start Date End Date Edenilson Nicholson DO [address] [place] [address] PCP - General Family Medicine 05/23/16 Ino Purdy MD [address] [place] [address] Home Care Provider Orthopedics 03/29/20 Fermín Cartwright MD [address] [place] [address] Referring Orthopedics 03/29/20 Hotshot Superintendent Relationship Specialty Start Date End Date Edenilson Nicholson DO [address] [place] [address] PCP - General Family Medicine 05/23/16 Ino Purdy MD [address] [place] [address] Home Care Provider Orthopedics 03/29/20 Fermín Cartwright MD [address] [place] [address] Referring Orthopedics 03/29/20 Hotshot Superintendent Relationship Specialty Start Date End Date Edenilson Nicholson DO [address] [place] [address] PCP - General Family Medicine 05/23/16 Ino Purdy MD [address] [place] [address] Home Care Provider Orthopedics 03/29/20 Fermín Cartwright MD [address] [place] [address] Referring Orthopedics 03/29/20 Hotshot Superintendent Relationship Specialty Start Date End Date Edenilson Nicholson DO [address] [place] [address] PCP - General Family Medicine 05/23/16 Ino Purdy MD [address] [place] [address] Home Care Provider Orthopedics 03/29/20 Fermín Cartwright MD [address] [place] [address] Referring Orthopedics 03/29/20 Hotshot Superintendent Relationship Specialty Start Date End Date Edenilson Nicholson DO [address] [place] [address] PCP - General Family Medicine 05/23/16 Ino Purdy MD [address] [place] [address] Home Care Provider Orthopedics 03/29/20 Fermín Cartwright MD [address] [place] [address] Referring Orthopedics 03/29/20 Hotshot Superintendent Relationship Specialty Start Date End Date Edenilson Nicholson DO [address] [place] [address] PCP - General Family Medicine 05/23/16 Ino Purdy MD [address] [place] [address] Home Care Provider Orthopedics 03/29/20 Fermín Cartwright MD [address] [place] [address] Referring Orthopedics 03/29/20 Hotshot Superintendent Relationship Specialty Start Date End Date Edenilson Nicholson DO [address] [place] [address] PCP - General Family Medicine 05/23/16 Ino Purdy MD [address] [place] [address] Home Care Provider Orthopedics 03/29/20 Fermín Cartwright MD [address] [place] [address] Referring Orthopedics 03/29/20 Magnolia Preciado, PT [address] [place] [address] Health Professor Post Acute Care 03/29/20 12/10/22 Hotshot Superintendent Relationship Specialty Start Date End Date Edenilson Nicholson DO [address] [place] [address] PCP - General Family Medicine 05/23/16 Ino Purdy MD [address] [place] [address] Home Care Provider Orthopedics 03/29/20 Fermín Cartwright MD [address] [place] [address] Referring Orthopedics 03/29/20 Hotshot Superintendent Relationship Specialty Start Date End Date Edenilson Nicholson DO [address] [place] [address] PCP - General Family Medicine 05/23/16 Ino Purdy MD [address] [place] [address] Home Care Provider Orthopedics 03/29/20 Fermín Cartwright MD [address] [place] [address] Referring Orthopedics 03/29/20 Hotshot Superintendent Relationship Specialty Start Date End Date Edenilson Nicholson DO [address] [place] [address] PCP - General Family Medicine 05/23/16 Ino Purdy MD [address] [place] [address] Home Care Provider Orthopedics 03/29/20 Fermín Cartwright MD [address] [place] [address] Referring Orthopedics 03/29/20 Magnolia Preciado, PT [address] [place] [address] Health Professor Post Acute Care 03/29/20 12/10/22 Hotshot Superintendent Relationship Specialty Start Date End Date Edenilson Nicholson DO [address] [place] [address] PCP - General Family Medicine 05/23/16 Ino Purdy MD [address] [place] [address] Home Care Provider Orthopedics 03/29/20 Fermín Cartwright MD [address] [place] [address] Referring Orthopedics 03/29/20 Magnolia Preciado, PT [address] [place] [address] Health Professor Post Acute Care 03/29/20 12/10/22 Hotshot Superintendent Relationship Specialty Start Date End Date Edenilson Nicholson DO [address] [place], [place] [address] PCP - General Family Medicine 05/23/16 Ino Purdy MD [address] [place] [address] Home Care Provider Orthopedics 03/29/20 Fermín Cartwright MD [address] [place] [address] Referring Orthopedics 03/29/20 Magnolia Preciado, PT [address] [place] [address] Health Professor Post Acute Care 03/29/20 12/10/22 Hotshot Superintendent Relationship Specialty Start Date End Date Edenilson Nicholson DO [address] [place] [address] PCP - General Family Medicine 05/23/16 Ino Purdy MD [address] [place] [address] Home Care Provider Orthopedics 03/29/20 Fermín Cartwright MD [address] [place] [address] Referring Orthopedics 03/29/20 Hotshot Superintendent Relationship Specialty Start Date End Date Edenilson Nicholson DO [address] [place] [address] PCP - General Family Medicine 05/23/16 Ino Purdy MD [address] [place] [address] Home Care Provider Orthopedics 03/29/20 Fermín Cartwright MD [address] [place] [address] Referring Orthopedics 03/29/20 Magnolia Preciado, PT [address] [place] [address] Health Professor Post Acute Care 03/29/20 12/10/22 Hotshot Superintendent Relationship Specialty Start Date End Date Edenilson Nicholson DO [address] [place] [address] PCP - General Family Medicine 05/23/16 Ino Purdy MD [address] [place] [address] Home Care Provider Orthopedics 03/29/20 Fermín Cartwright MD [address] [place] [address] Referring Orthopedics 03/29/20 Hotshot Superintendent Relationship Specialty Start Date End Date Edenilson Nicholson DO [address] [place] [address] PCP - General Family Medicine 05/23/16 Ino Purdy MD [address] [place] [address] Home Care Provider Orthopedics 03/29/20 Fermín Cartwright MD [address] [place] [address] Referring Orthopedics 03/29/20 Hotshot Superintendent Relationship Specialty Start Date End Date Edenilson Nicholson DO [address] [place] [address] PCP - General Family Medicine 05/23/16 Ino Purdy MD [address] [place] [address] Home Care Provider Orthopedics 03/29/20 Fermín Cartwright MD [address] [place] [address] Referring Orthopedics 03/29/20 [place]andi [place], PLEASURE CRAFT SAILOR.SHIP KEEPER [address] [facility] [place] [address] Residential Worker Family [facility] 02/09/24 Angeline Monterroso APRN.SHIP KEEPER [address] [facility] [place] [address] Residential Worker Family Medicine 02/09/24 Hotshot Superintendent Relationship Specialty Start Date End Date Edenilson Nicholson DO [address] [facility] [place] [address] PCP - General Family Medicine 05/23/16 Ino Purdy MD [address] [place] [address] Home Care Provider Orthopedics 03/29/20 Fermín Cartwright MD [address] [place] [address] Referring Orthopedics 03/29/20 aKndi Park APRN.SHIP KEEPER [address] [facility] [place] [address] Residential Worker [facility] 02/09/24 Angeline Monterroso PLEASURE CRAFT SAILOR.SHIP KEEPER [address] [facility] [place] [address] Residential Worker Family [facility] 02/09/24 Hotshot Superintendent Relationship Specialty Start Date End Date Edenilson Nicholson DO [address] [facility] [place] [address] PCP - General Family Medicine 05/23/16 Ino Purdy MD [address] [place] [address] Home Care Provider Orthopedics 03/29/20 Fermín Cartwright MD [address] [place] [address] Referring Orthopedics 03/29/20 Kandi Park PLEASURE CRAFT SAILOR.SHIP KEEPER [address] [facility] [place] [address] Residential Worker Family Medicine 02/09/24 Angeline Monterroso APRN.SHIP KEEPER [address] [place] [address] Residential Worker Family Medicine 02/09/24 Hotshot Superintendent Relationship Specialty Start Date End Date Edenilson Nicholson DO [address] [place] [address] PCP - General Family Medicine 05/23/16 Ino Purdy MD [address] [place] [address] Home Care Provider Orthopedics 03/29/20 Fermín Cartwright MD [address] [place] [address] Referring Orthopedics 03/29/20 Kandi Park PLEASURE CRAFT SAILOR.SHIP KEEPER [address] [place] [address] Residential Worker Family Medicine 02/09/24 Angeline Monterroso PLEASURE CRAFT SAILOR.SHIP KEEPER [address] [facility] [place] [address] Residential Worker Family Medicine 02/09/24 Hotshot Superintendent Relationship Specialty Start Date End Date Edenilson Nicholson DO [address] [facility] [place] [address] PCP - General Family Medicine 05/23/16 Ino Purdy MD [address] [place] [address] Home Care Provider Orthopedics 03/29/20 Fermín Cartwright MD [address] [place] [address] Referring Orthopedics 03/29/20 Kandi Park PLEASURE CRAFT SAILOR.SHIP KEEPER [address] [place] [address] Residential Worker Family Medicine 02/09/24 Angeline Monterroso APRN.SHIP KEEPER [address] [place] [address] Residential Worker Family [facility] 02/09/24 Hotshot Superintendent Relationship Specialty Start Date End Date Edenilson Nicholson DO [address] [place] [address] PCP - General Family Medicine 05/23/16 Ino Purdy MD [address] [place] [address] Home Care Provider Orthopedics 03/29/20 Fermín Cartwright MD [address] [place] [address] Referring Orthopedics 03/29/20 Kandi Park APRN.SHIP KEEPER [address] [place] [address] Residential Worker Family [facility] 02/09/24 Angeline Monterroso APRN.SHIP KEEPER [address] [place] [address] Residential Worker Family Medicine 02/09/24 Hotshot Superintendent Relationship Specialty Start Date End Date Edenilson Nicholson DO [address] [place] [address] PCP - General Family Medicine 05/23/16 Ino Purdy MD [address] [place] [address] Home Care Provider Orthopedics 03/29/20 Fermín Cartwright MD [address] [place] [address] Referring Orthopedics 03/29/20 Kandi Park APRN.SHIP KEEPER [address] [place] [address] Residential Worker Family [facility] 02/09/24 Angeline Monterroso APRN.SHIP KEEPER [address] [place] [address] Residential Worker Family [facility] 02/09/24 Hotshot Superintendent Relationship Specialty Start Date End Date Edenilson Nicholson DO [address] [place] [address] PCP - General Family Medicine 05/23/16 Ino Purdy MD [address] [place] [address] Home Care Provider Orthopedics 03/29/20 Fermín Cartwright MD [address] [place] [address] Referring Orthopedics 03/29/20 Kandi [place] APRN.SHIP KEEPER [address] [place] [address] Residential Worker Family Medicine 02/09/24 Angeline Monterroso APRN.SHIP KEEPER [address] [place] [address] [facility] Hotshot Superintendent Relationship Specialty Start Date End Date Edenilson Nicholson DO [address] [place] [address] PCP - General Family Medicine 05/23/16 Ino Purdy MD [address] [place] [address] Home Care Provider Orthopedics 03/29/20 Fermín Cartwright MD [address] [place] [address] Referring Orthopedics 03/29/20 [place]andi [place], PLEASURE CRAFT SAILOR.SHIP KEEPER [address] [place] [address] Residential Worker [facility] 02/09/24 Angeline Monterroso, PLEASURE CRAFT SAILOR.SHIP KEEPER [address] [place] [address] [facility] 02/09/24 Hotshot Superintendent Relationship Specialty Start Date End Date Edenilson Nicholson DO [address] [place] [address] PCP - General Family Medicine 05/23/16 Ino Purdy MD [address] [place] [address] Home Care Provider Orthopedics 03/29/20 Fermín Cartwright MD [address] [place] [address] Referring Orthopedics 03/29/20 [place], PLEASURE CRAFT SAILOR.SHIP KEEPER [address] [place] [address] Residential Worker Family Medicine 02/09/24 Angeline Monterroso APRN.SHIP KEEPER [address] [place] [address] Residential Worker [facility] 02/09/24 Hotshot Superintendent Relationship Specialty Start Date End Date Edenilson Nicholson DO [address] [place] [address] PCP - General Family Medicine 05/23/16 Ino Purdy MD [address] [place] [address] Home Care Provider Orthopedics 03/29/20 Fermín Cartwright MD [address] [place] [address] Referring Orthopedics 03/29/20 Angeline Monterroso APRN.SHIP KEEPER [address] [place] [address] [facility] 02/09/24 Hotshot Superintendent Relationship Specialty Start Date End Date Edenilson Nicholson DO [address] [place] [address] PCP - General Family Medicine 05/23/16 Ino Purdy MD [address] [place] [address] Home Care Provider Orthopedics 03/29/20 Fermín Cartwright MD [address] [place] [address] Referring Orthopedics 03/29/20 Angeline Monterroso APRN.SHIP KEEPER [address] [place] [address] Residential Worker Family Medicine 02/09/24 Hotshot Superintendent Relationship Specialty Start Date End Date Edenilson Nicholson DO [address] [place] [address] PCP - General Family Medicine 05/23/16 Ino Purdy MD [address] [place] [address] Home Care Provider Orthopedics 03/29/20 Fermín Cartwright MD [address] [place] [address] Referring Orthopedics 03/29/20 Angeline Monterroso APRN.SHIP KEEPER [address] [place] [address] Residential Worker [facility] 02/09/24 Hotshot Superintendent Relationship Specialty Start Date End Date Edenilson Nicholson DO [address] [place] [address] PCP - General Family Medicine 05/23/16 Ino Purdy MD [address] [place] [address] Home Care Provider Orthopedics 03/29/20 Fermín Cartwright MD [address] [place] [address] Referring Orthopedics 03/29/20 Angeline Monterroso APRN.SHIP KEEPER [address] [place] [address] Residential Worker Family Medicine 02/09/24 Hotshot Superintendent Relationship Specialty Start Date End Date Edenilson Nicholson DO [address] [place] [address] PCP - General Family Medicine 05/23/16 Ino Purdy MD [address] [place] [address] Home Care Provider Orthopedics 03/29/20 Fermín Cartwright MD [address] [place] [address] Referring Orthopedics 03/29/20 Angeline Monterroso, PLEASURE CRAFT SAILOR.SHIP KEEPER [address] [place] [address] Residential Worker Family [facility] 02/09/24 Hotshot Superintendent Relationship Specialty Start Date End Date Edenilson Nicholson DO [address] [place] [address] PCP - General Family Medicine 05/23/16 Ino Purdy MD [address] [place] [address] Home Care Provider Orthopedics 03/29/20 Fermín Cartwright MD [address] [place] [address] Referring Orthopedics 03/29/20 Angeline Monterroso, PLEASURE CRAFT SAILOR.SHIP KEEPER [address] [place] [address] Residential Worker [facility] 02/09/24 Hotshot Superintendent Relationship Specialty Start Date End Date Edenilson Nicholson DO [address] [place] [address] PCP - General Family Medicine 05/23/16 Ino Purdy MD [address] [place] [address] Home Care Provider Orthopedics 03/29/20 Fermín Cartwright MD [address] [place] [address] Referring Orthopedics 03/29/20 Angeline Monterroso APRN.SHIP KEEPER [address] [facility] [place] [address] Residential Worker Family Medicine 02/09/24 Hotshot Superintendent Relationship Specialty Start Date End Date Edenilson Nicholson DO [address] [place] [address] PCP - General Family Medicine 05/23/16 Ino Purdy MD [address] [place] [address] Home Care Provider Orthopedics 03/29/20 Fermín Cartwright MD [address] [place] [address] Referring Orthopedics 03/29/20 Angeline Monterroso APRN.SHIP KEEPER [address] [facility] [place] [address] Residential Worker [facility] 02/09/24 Hotshot Superintendent Relationship Specialty Start Date End Date Edenilson Nicholson DO [address] [facility] [place] [address] PCP - General Family Medicine 05/23/16 Ino Purdy MD [address] [place] [address] Home Care Provider Orthopedics 03/29/20 Fermín Cartwright MD [address] [place] [address] Referring Orthopedics 03/29/20 Angeline Monterroso APRN.SHIP KEEPER [address] [place] [address] [facility] Hotshot Superintendent Relationship Specialty Start Date End Date Edenilson Nicholson DO [address] [place] [address] PCP - General Family Medicine 05/23/16 Ino Purdy MD [address] [place] [address] Home Care Provider Orthopedics 03/29/20 Fermín Cartwright MD [address] [place] [address] Referring Orthopedics 03/29/20 Angeline Monterroso APRN.SHIP KEEPER [address] [place] [address] [facility] 02/09/24 Hotshot Superintendent Relationship Specialty Start Date End Date Edenilson Nicholson DO [address] [place] [address] PCP - General Family Medicine 05/23/16 Ino Purdy MD [address] [place] [address] Home Care Provider Orthopedics 03/29/20 Fermín Cartwright MD [address] [place] [address] Referring Orthopedics 03/29/20 Angeline Monterroso APRN.SHIP KEEPER [address] [place] [address] [facility]24 Goals (unrecognized section and content) Goals may be documented in a n alternate sectionGoals may be documented in an alternate sectionGoals may be documented in an alternate sectionGoals may be documented in an alternate sectionGoals may be documented in an alternate sectionGoals may be documented in an alternate section No data available for this sectionGoals may be documented in an alternate sectionGoals may be documented in an alternate section INFORMATION SOURCE (unrecogn ized section and content) DATE CREATED AUTHOR 01/25/2023 [facility] ([place]) DATE CREATED AUTHOR AUTHOR'S ORGANIZ ATION 05/09/2023 [facility] DATE CREATED AUTHOR AUTHOR'S ORGANIZ ATION 05/26/2023 [facility] nt DATE CREATED AUTHOR AUTHOR'S ORGANIZ ATION 05/18/2024 [facility] DATE CREATED AUTHOR AUTHOR'S ORGANIZ ATION 07/02/2024 [facility] DATE CREATED AUTHOR AUTHOR'S ORGANIZ ATION 08/09/2024 [facility] Inactive Administered Medications - up to 3 most recent administrations Administered Medications (un recognized section and content) Medication Order MAR Action Action Date Dose Rate Site keTORolac 30 mg injection (Toradol) 30 mg, INTRAMUSCULAR, ONCE, 1 dose, On Sat05/08/23 at 0930, Ketorolac (Toradol) is indicated for the short-term (up to 5 days) management of moderately severe acute pain. Continuation of ketorolac (Toradol) beyond 5 days increases the risk of developing serious adverse events. Please verify the duration of therapy for ketorolac (Toradol)., If ordered PRN for pain, patient/guardian may elect to receive this medication for higher pain levels INSTEAD of the opioid, if preferred: Yes Given 05/08/2023 9:38 AM EST 30 mg Buttocks, Right FOR RECORDS PERTAINING TO PATIENTS WHO ARE OR HAVE BEEN ENROLLED IN A CHEMICAL DEPENDENCY/SUBSTANCEABUSE PROGRAM, SOME INFORMATION MAY BE OMITTED. This clinical summary was aggregated from multiple sources. Caution should be exercised in using it in the provision of clinical care. This summary normalizes information from multiple sources, and as a consequence, information in this document may materially change the coding, format and clinical context of patient data. In addition, data may be omitted in some cases. CLINICAL DECISIONS SHOULD BE BASED ON THE PRIMARY CLINICAL RECORDS. [employer] provides no warranty or guarantee of the accuracy or completeness of information in this document.
--- OUTSIDE RECORDS SUMMARY | 2024-08-13 21:43 | XMS RPT_ITS | CCD ---
Author Organization [facility] Care Team Providers Care Classified Copy Control Clerk Name Role Phone Edenilson Nicholson DO Primary Care Provider Ino Purdy MD Unavailable Unavailable Fermín Cartwright MD Unavailable Magnolia Preciado PT Unavailable Edenilson Nicholson DO Primary Care Provider Ino Purdy MD Unavailable Unavailable Fermín Cartwright MD Unavailable Magnolia Preciado PT Unavailable EDENILSON NICHOLSON DO Primary Care Physician DR MIRA VILLATORO DO Attending Unavailable EDENILSON NICHOLSON DO Primary Care Unavailable ANGELINE MONTERROSO Referring Unavailable EDENILSON NICHOLSON Primary Care Unavailable EDENILSON NICHOLSON Referring Unavailable EDENILSON NICHOLSON Primary Care Unavailable Edenilson Nicholson DO Primary Care Provider Xavier SITE IDENTIFICATION SPECIALIST.Kandi BROWN Unavailable Cory PARNELL.Angeline BROWN Unavailable MAXIMO [...] EDENILSON L Primary Care Unavailable LANI ARNDT Referring [...] Primary Care Unavailable MARY KEITH Referring Unavailable KYM LEWIS Attending Unavailable NICHOLSON, EDENILSON L Primary [...] [HYDROCODONE-ACET AMINOPHEN] Drug Allergy 07-07-19 16 Itching [facility] (20 sources) Caffeine; Translations: [CAFFEINE] Drug Allergy 12-02-19 05 Other [facility] (20 sources) Codeine; Translations: [CODEINE] Drug Allergy 12-02-19 05 Vomiting [facility] (20 sources) ePHEDrine; Translations: [EPHEDRINE] Drug Allergy 12-02-19 05 Other: See Comments [facility] (20 sources) Griseofulvin; Translations: [GRISEOFULVIN] Drug Allergy 12-02-19 05 Unknown [facility] (20 sources) guaiFENesin / Phenylephrine; Translations: [PHENYLEPHRINE- AIFENESIN] Drug Allergy 12-02-19 05 [facility] (20 sources) Meperidine; Translations: [MEPERIDINE (PF)] Drug Allergy 07-07-19 16 Vomiting [facility] (20 sources) Milk Drug Intolerance 11-16-19 17 Intolerance [facility] (20 sources) Sertraline; Translations: [SERTRALINE HCL] Drug Allergy 09-26-19 07 Mental Status Change [facility] Work Phone: (20 sources) traMADol; Translations: [TRAMADOL] Drug Allergy 12-21-19 12 Other: See Comments [facility] Work Phone: (20 sources) Propoxyphene N-Acetaminophen; Translations: [PROPOXYPHENE N-ACETAMINOPHEN] Drug Intolerance 12-02-19 05 Vomiting [facility] (8 sources) Acetaminophen Drug Allergy 09-08-19 17 Vomiting [facility] (8 sources) Ampicillin Drug Allergy 09-08-19 17 Unknown [facility] (8 sources) guaiFENesin Drug Allergy 09-08-19 17 Unknown [facility] (9 sources) HYDROcodone; Translations: [hydrocodone bitartrate] Drug Allergy 09-08-19 17 Unknown [facility] (9 sources) Meperidine; Translations: [meperidine HCl] Drug Allergy 09-08-19 17 Vomiting [facility] (9 sources) Penicillins; Translations: [Penicillins] Allergy to substance 09-08-19 17 Unknown [facility] (9 sources) Phenylephrine; Translations: [phenylephrine HCl] Drug Allergy 09-08-19 17 Unknown [facility] (9 sources) Phenylpropanolami ne; Translations: [phenylpropanolam ine HCl] Drug Allergy 09-08-19 17 Unknown [facility] (9 sources) Propoxyphene; Translations: [propoxyphene napsylate] Drug Allergy 09-08-19 17 Vomiting [facility] (9 sources) Sulfonamides (Antibiotic); Translations: [Sulfa (Sulfonamide Antibiotics)] Propensity to adverse reactions 09-08-19 17 Unknown [facility] (4 sources) MILK CONTAINING PRODUCTS (DAIRY); Translations: [MILK CONTAINING PRODUCTS (DAIRY)] Propensity to adverse reactions to drug (disorder) 11-16-19 17 [facility] Repository (1 source) Acetaminophen Drug Allergy 09-08-19 17 [facility] Repository (1 source) Ampicillin Drug Allergy 09-08-19 17 [facility] Repository (1 source) Caffeine Drug Allergy 09-08-19 17 [facility] Repository (1 source) Codeine Drug Allergy 09-08-19 17 [facility] Repository (1 source) ePHEDrine Drug Allergy 09-08-19 17 [facility] Repository (1 source) Griseofulvin Drug Allergy 09-08-19 17 [facility] Repository (1 source) guaiFENesin Drug Allergy 09-08-19 17 [facility] Repository (1 source) Sertraline Drug Allergy 09-08-19 17 [facility] Repository (1 source) traMADol Drug Allergy 09-08-19 17 [facility] Repository Medications Current Medications Medication Drug Class(es) Dates Sig (Normalized) Sig (Original) [id number] 200 actuat albuterol 0.09 mg/actuat metered dose [...] to appointment take 1 capsule by mo [facility] three times a day until finished azelaic [...] on above: Take 1 capsule by mo [facility] twice daily for 14 days. donepezil hydrochloride [...] Comment on above: Take 1 tablet by [facility] twice daily. Take 10 mg by mouth twice daily. fluocinolone-skin [id number] 0.01 % kit (12 sources) Start: End: fluocinolone-skin fegwa58-lyrc 0.01 % kit Indications: Psoriasis Apply to [...] Comment on above: Take 1 capsule by [facility] once daily. TAKE 1 CAPSULE BY [facility] ONCE DAILY folic acid 1 mg oral [...] days. 6 capsule 0 07/08/2023 07/11/2023 Active Sharon-3 Fatty Acids-Fish Oil (8 sources) Star t: 07-0 7- 17 take 5000 mg by mouth once daily Sharon-3 Fatty Acids-Fish Oil Active 5000 MG PO DAILY September 07, 2016 11:33am Start: 09-07-2016 take 5000 mg by mout h once daily Sharon-3 Fatty Acids-Fish Oil Active 5000 MG PO DAILY September 06, 2016 11:00pm Start: 09-07-2016 take 5000 mg by mout h once daily Sharon-3 Fatty Acids-Fish Oil Active 5000 MG PO [...] with food. Take 2 tablets by mo [facility] once daily for 5 days. red yeast [...] End: 06-27-2023 MULTIVITAMIN ORAL Take by mo [facility] once daily. Gummies 0 06/27/2023 Discontinued MULTIVITAMIN [...] to affected ar ea three times daily. hdyhn-4w-juh-epa-fish oil-D3 (VITAMIN-D + OMEGA-3) 350 mg- 1,000 unit cap (20 sources) umilr-9i-ous-epa -fish oil-D3 (VITAMIN-D + OMEGA-3) 350 mg- 1,000 unit cap Take by mouth. Takes a total of 5,000 daily 0 Active Comment on above: Take by mouth. Takes a total of 5,000 daily ekjrk-4w-ehh-epa-fish oil-D3 350 mg-400 mg- 1,000 unit cap (20 sources) End: 07-16-2023 cstai-5x-xmb-epa-fish oil-D3 350 mg-400 mg- 1,000 unit cap Take by mouth. Takes a total of 5,000 daily 07/16/2023 Discontinued End: 07-16-2023 udiyj-9f-pgn-epa-fish oil-D3 350 mg-400 mg- 1,000 unit cap Take by mouth. Takes a total of 5,000 daily 0 07/16/2023 Discontinued qygml-0x-sjf-epa -fish oil-D3 350 mg-400 mg- 1,000 unit cap Take by mouth. Takes a total of 5,000 daily 0 Active Comment on above: Take by mouth. Takes a total of 5,000 daily polyethylene glycol 3350 80548 mg powder for oral solution (1 source) Osmotic Laxative Start: 10-23-19 End: 12-21-19 polyethylene glycol 3350 (MIRALAX, GLYCOLAX) 17 gram/dose powder Take 17 g by mouth once daily. 238 g 3 10/23/2019 12/20/2020 Discontinued polyethylene glycol 3350 385588 mg / potassium chloride 2970 mg / sodium bicarbonate 6740 mg / sodium chloride 5860 mg / sodium sulfate 69286 mg powder for oral solution (1 source) [...] Test Name Value Interpretation Reference Range Facility [facility] 08-08-2024 CNOV Office Visit (UCWSTR ) -- ANAYA WILSON ([id number]) 1940 F Date Time Provider Department 08/08/24 2:15 PM AMERICA MENDEZ WS During your visit today, we recorded the following information about you: Temperature Pulse Respiration Blood pressure 97.7 degrees 57/minute 19/minute 140/72 Weight 54.5 kg America Mendez APRN.BACKWINDER 08/08/2024 2:18 PM Signed I feel that your presentation today is most consistent with some sort of an insect bite or sting. I recommend that you use your home Claritin for symptomatic relief. I do suspect that symptoms should resolve over the next several days. Please follow-up with your family doctor if symptoms are not improving. America Mendez APRN.BACKWINDER 08/08/2024 2:21 PM Signed This note was created using [employer]. Subjective Anaya Wilson is a 84 year [...] PCP if symptoms not improving America Mendez APRN.BACKWINDER Allergies As of Date: 08/08/2024 Noted Allergy [...] Date Reviewed: 08/08/2024 Reviewed by: America Mendez APRN.BACKWINDER - Fully Assessed Reason for Visit: Derm [...] Meds Comments (more content not included)... Normal [facility] 08-08-2024 [facility] Telephone (AYAZWS) -- ANAYA WILSON ([id number]) 1940 F Date Time Provider Department 08/08/24 [facility] During your visit today, we recorded [...] MS Does not take Naprosyn or Ibuprofen [facility] 11-11May 27, 2019 Patient currently taking her [...] pain [R10.32] (more content not included)... Normal [facility] Bacteria Ur Culton 5 Bacteria identified Cx Nom (U) ORGANISM ID: 1 10,000 -<50,000 CFU/ml Normal urogenital ji Normal [facility] Comment on above: Performed By: #### 6 30-4 #### [facility] CLIA [id number] [address] [place] [address] [place] CNOVon 08-04-2024 CNOV Office Visit (UCWSTR ) -- ANAYA WILSON ([id number]) 1940 F Date Time Provider Department 08/04/24 4:15 PM KYM LEWIS [facility] During your visit today, we recorded the following information about you: Temperature Pulse Respiration Blood pressure 97.7 degrees 64/minute 16/minute 102/62 Weight 55.6 kg Kym Lewis PA 08/04/2024 4:02 PM Signed [facility] Subjective Anaya Wilson is a 84 year [...] 1-2 days with culture results. Recording using [employer] software for draft documentation of the visit was discussed with the patient/authorized sales donor recruitment representative; all questions welcomed and answered. Patient/authorized sales donor recruitment representative agreed to proceed History and Record [...] Diagnosis:Urinary frequency [R35.0] Order(s):UA DIP, URINE (POC) [[id number]] Order #: [id number]. #:[id number] 7-LAB BACTERIAL CULTURE, URINE [SQURCUL] Order #: [id number]. #:[id number] Prescriptions as of 08/04/2024 - losartan (COZAAR) [...] mouth arturo (more content not included)... Normal [facility] 08-03-2024 ELA Telephone (ARELY) -- ANAYA WILSON ([id number]) 1940 F Date Time Provider Department 08/03/24 [...] telephone once injection order placed. Mary Keith APRN.[facility] 08/03/2024 2:03 PM Signed Injection order signed [...] [M51.372] Order(s):INJ TRANSFORAMINAL EPID ANES/STER LS SINGL [[id number]] Order #: [id number] Prescriptions as of 08/03/2024 - losartan (COZAAR) [...] MS Does not take Naprosyn or Ibuprofen [facility] -May 27, 2019 Patient currently taking her [...] cer*05/30/2015 Polyarticula (more content not included)... Normal [facility] MR Lumbar spine WO contrasto n 07-29-2024 IMPRESSION: 1. Scoliosis and spondylosis. 2. Significant lumbar central canal narrowing at L3-4 and L4-5. 3. Additional foraminal disease detailed level by level. COUNTING REFERENCE: Inferior lumbar disc taken as L5-S1. Structural anomalies: None. 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Machine Operator: JAIME Transcribe Date/Time: Jul 29 2024 10:31A Dictated by : АННА WOODS MD This examination was interpreted and the report reviewed and electronically signed by: АННА WOODS MD on Jul 29 2024 10:34AM [facility] DIVISION OF RADIOLOGY * * *Final Report* * * DATE OF EXAM: Jul 29 2024 8:45AM [facility] 0303 - MRI LUMBAR SPINE WO IVCON [...] disc taken as L5-S1. Structural anomalies: None. 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Machine Operator: JAIME Transcribe Date/Time: Jul 29 2024 10:31A Dictated by : АННА WOODS MD This examination was interpreted and the report reviewed and electronically signed by: АННА WOODS MD on Jul 29 2024 10:34AM EST [facility] Radiology Study observation (narrative) [facility] MR Lumbar spine WO contrastO rdered By: [facility] Provider on 07-29-2024 [facility] MRI LUMBAR SPINE WO IVCONon 07-29-2024 [...] disc taken as L5-S1. Structural anomalies: None. 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Machine Operator: JAIME Transcribe Date/Time: Jul 29 2024 10:31A Dictated by : АННА WOODS MD This examination was interpreted and the report reviewed and electronically signed by: АННА WOODS MD on Jul 29 2024 10:34AM EST [id number] Normal [facility] CNOVon 07-23-2024 CNOV Office Visit (PNMDNA ) -- ANAYA WILSON ([id number]) 1940 F Date Time Provider Department 07/23/24 2:15 PM MARY KEITH PNIDBERNIE During your visit today, we recorded the following information about you: Pulse Weight 52/minute 55.4 kg Mary Keith, SITE IDENTIFICATION SPECIALIST.BACKWINDER 07/23/2024 3:13 PM Signed [facility] Date: July 23, 2024 [...] She completed 1 session on 04/06/24 at [facility] in [place]. Spinal Injections: She has not gotten prior [...] Knee r (more content not included)... Normal [facility] CNOVon 06-30-2024 CNOV Office Visit (UCWSTR ) -- ANAYA WILSON ([id number]) 1940 F Date Time Provider Department 06/30/24 4:00 PM LANI ARNDT UCWSTR During your visit today, we recorded the following information about you: Temperature Pulse Respiration Blood pressure 98.9 degrees 66/minute 16/minute 112/68 Weight 55.5 kg Lani Arndt PA-C 06/30/2024 4:47 PM Signed This note was created using [employer]. Subjective Anaya Wilson is a 84 year [...] 06/30/2024 4:[address] MARGARET BACON [phone] Allergies As of Date: 06/30/2024 Noted Allergy [...] (HYDROCODONE-ACETAMINOPHE* 07/07/19 (more content not included)... Normal [facility] XR ANKLE 3V AP/LAT/OBL RTon 06-30-2024 [...] No radiographic evidence of acute osseous injury. 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Machine Operator: JAIME Transcribe Date/Time: Jun 30 2024 4:14P Dictated by : RAUL MUNSON MD This examination was interpreted and the report reviewed and electronically signed by: RAUL MUNSON MD on Jun 30 2024 4:15PM EST [id number] Normal [facility] XR Ankle - right AP and Late ral and obliqueon 06-30-2024 Radiology Study observation (narrative) [facility] IMPRESSION: Lateral soft tissue swelling. No radiographic evidence of acute osseous injury. 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Machine Operator: PSCB Transcribe Date/Time: Jun 30 2024 [...] mortise appear intact. DIVISION OF RADIOLOGY [facility] * * *Final Report* * [...] No radiographic evidence of acute osseous injury. 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Machine Operator: PSCB Transcribe Date/Time: Jun 30 2024 4:14P Dictated by : RAUL MUNSON MD This examination was interpreted and the report reviewed and electronically signed by: RAUL MUNSON MD on Jun 30 2024 4:15PM EST [facility] XR Ankle - right AP and Late ral and obliqueOrdered By: [facility] Provider on 06-30-2024 [facility] CBC W/Diff, Automatedon 06-03 Absolute Lymph 2.05 X10 3/uL Normal 0.83-4.51 [facility] Comment on above: Performed By: #### L 100.0100, L500.4050 #### [facility] Laboratory [address] [place], [place], [id number] Absolute Neut 3.0 X10 3/uL Normal 2.0-7.7 [facility] Comment on above: Performed By: #### L 100.0100, L500.4050 #### [facility] [address] [place], [address] Basophils/100 WBC (Bld) 0.7 % Normal 0-1 [facility] Comment on above: Performed By: #### L 100.0100, L500.4050 #### [facility] [address] [place], [address] Eosinophils/100 WBC (Bld) 2.8 % Normal 0-5 [facility] Comment on above: Performed By: #### L 100.0100, L500.4050 #### [facility] [address] [place], [address] Erythrocyte distribution width (RBC) [Ratio] 15.2 % High 11.6-14.6 [facility] Comment on above: Performed By: #### L 100.0100, L500.4050 #### [facility] [address] [place], [address] Hematocrit (Bld) [Volume fraction] 38.1 % Normal 37-47 [facility] Comment on above: Performed By: #### L 100.0100, L500.4050 #### [facility] [address] [place], [address] Hemoglobin (Bld) [Mass/Vol] 12.6 g/dL Normal 12.0-15.0 [facility] Comment on above: Performed By: #### L 100.0100, L500.4050 #### [facility] [address] [place], [address] IG% 1.000 High 0.0-0.9 [facility] Comment on above: Result Comment: IG% - Immature Granulocytes (promyelocytes, myelocytes and metamyelocytes) > 1% indicates that a LEFT SHIFT is Present. Performed By: #### L 100.0100, L500.4050 #### [facility] [address] [place], [address] Lymphocytes/100 WBC (Bld) 34.0 % Normal 19-41 [facility] Comment on above: Performed By: #### L 100.0100, L500.4050 #### [facility] [address] [place], [address] MCH (RBC) [Entitic mass] 31.5 pg Normal 27.0-32.0 [facility] Comment on above: Performed By: #### L 100.0100, L500.4050 #### [facility] [address] [place], [address] MCHC (RBC) [Mass/Vol] 33.1 g/dL Normal 32-36 [facility] Comment on above: Performed By: #### L 100.0100, L500.4050 #### [facility] [address] [place], [address] MCV (RBC) [Entitic vol] 95.3 fL Normal 81-99 [facility] Comment on above: Performed By: #### L 100.0100, L500.4050 #### [facility] [address] [place], [address] Monocytes/100 WBC (Bld) 11.6 % High 0-10 [facility] Comment on above: Performed By: #### L 100.0100, L500.4050 #### [facility] [address] [place], [address] Neutrophils/100 WBC (Bld) 49.9 % Normal 47-70 [facility] Comment on above: Performed By: #### L 100.0100, L500.4050 #### [facility] [address] [place], [address] Nucleated RBC (Bld) [#/Vol] 0 10*3/uL Normal 0-5 [facility] Comment on above: Performed By: #### L 100.0100, L500.4050 #### [facility] [address] [place], [address] Platelet mean volume (Bld) [Entitic vol] 11.3 fL Normal 6.2-12.0 [facility] Comment on above: Performed By: #### L 100.0100, L500.4050 #### [facility] [address] [place], [address] Platelets (Bld) [#/Vol] 251 10*3/uL Normal 150-450 [facility] Comment on above: Performed By: #### L 100.0100, L500.4050 #### [facility] [address] [place], [address] RBC (Bld) [#/Vol] 4.00 10*6/uL Low 4.2-5.4 [facility] Comment on above: Performed By: #### L 100.0100, L500.4050 #### [facility] [address] [place], [address] RDW SD 52.2 fl High 35.1-43.9 [facility] Comment on above: Performed By: #### L 100.0100, L500.4050 #### [facility] [address] [place], [address] WBC (Bld) [#/Vol] 6.0 10*3/uL Normal 4.4-11.0 [facility] Comment on above: Performed By: #### L 100.0100, L500.4050 #### [facility] [address] [place], [address] Comprehensive Metabolic Prof [facility] 06-26-2024 Albumin [Mass/Vol] 3.1 g/dL Low 3.4-4.8 [facility] Comment on above: Performed By: #### L 100.0100, L500.4050 #### [facility] [address] [place], [address] Albumin/Globulin [Mass ratio] 1.0 {ratio} Normal 0.9-2.4 [facility] Comment on above: Performed By: #### L 100.0100, L500.4050 #### [facility] [address] [place], [address] ALK PHOS 119 U/L High 35-104 [facility] Comment on above: Performed By: #### L 100.0100, L500.4050 #### [facility] [address] [place], [address] ALT [Catalytic activity/Vol] 28 U/L Normal <=34 [facility] Comment on above: Performed By: #### L 100.0100, L500.4050 #### [facility] [address] [place], [address] AST [Catalytic activity/Vol] 32 U/L Normal <=31 [facility] Comment on above: Performed By: #### L 100.0100, L500.4050 #### [facility] [address] [place], [address] Bilirubin [Mass/Vol] 0.35 mg/dL Normal 0.00-1.30 [facility] Comment on above: Performed By: #### L 100.0100, L500.4050 #### [facility] [address] [place], [address] BUN/CRE 19.6 RATIO Normal 10-20 [facility] Comment on above: Performed By: #### L 100.0100, L500.4050 #### [facility] [address] [place], [address] Calcium [Mass/Vol] 9.1 mg/dL Normal 7.6-11.0 [facility] Comment on above: Performed By: #### L 100.0100, L500.4050 #### [facility] [address] [place], [address] Chloride [Moles/Vol] 102 mmol/L Normal 98-108 [facility] Comment on above: Performed By: #### L 100.0100, L500.4050 #### [facility] [address] [place], [address] CO2 [Moles/Vol] 25.4 mmol/L Normal 21.0-32.0 [facility] Comment on above: Performed By: #### L 100.0100, L500.4050 #### [facility] [address] [place], [address] Creatinine [Mass/Vol] 0.65 mg/dL Low 0.70-1.20 [facility] Comment on above: Performed By: #### L 100.0100, L500.4050 #### [facility] [address] [place], [address] GAP 12 Normal 5-15 [facility] Comment on above: Performed By: #### L 100.0100, L500.4050 #### [facility] [address] [place], [address] GFR/1.73 sq M.predicted among non-blacks MDRD (S/P/Bld) [Vol rate/Area] 87 mL/min/{1.73_m2} Normal >60 [facility] Comment on above: Result Comment: mL/m in/1.73m2 CKD-EPI Creatinine Equation (2020) Performed By: #### L 100.0100, L500.4050 #### [facility] [address] [place], [address] Globulin (S) [Mass/Vol] 3.2 g/dL Normal 2.2-4.2 [facility] Comment on above: Performed By: #### L 100.0100, L500.4050 #### [facility] [address] [place], [address] Glucose [Mass/Vol] 92 mg/dL Normal 70-99 [facility] Comment on above: Performed By: #### L 100.0100, L500.4050 #### [facility] [address] [place], [address] Potassium [Moles/Vol] 4.7 mmol/L Normal 3.3-5.1 [facility] Comment on above: Performed By: #### L 100.0100, L500.4050 #### [facility] [address] [place], [address] Sodium [Moles/Vol] 139 mmol/L Normal 133-145 [facility] Comment on above: Performed By: #### L 100.0100, L500.4050 #### [facility] [address] [place], [address] T PROT 6.3 g/dL Normal 5.9-8.4 [facility] Comment on above: Performed By: #### L 100.0100, L500.4050 #### [facility] [address] [place], [address] Urea nitrogen [Mass/Vol] 13 mg/dL Normal 4-19 [facility] Comment on above: Performed By: #### L 100.0100, L500.4050 #### [facility] [address] [place], [address] H pylori Ag Stl Ql IAon 06-02 H. pylori Ag IA Ql (Stl) H.PYLORI EIA RESULT: Negative for Helicobacter pylori antigen by EIA Normal [facility] Comment on above: Performed By: #### 6 30-4 #### [facility] [facility] CLIA [id number] [address] [place] [address] [place] PANC ELASTASE, FECALon 06-15 ELASTASE INTERPRETATION Normal Normal Normal [facility] Comment on above: Order Comment: Speci men Type: STOOL SPECIMENOrdering Facility: [facility] Address: [address] [place] [address] Performed By: #### 6 30-4 #### [facility] [facility] CLIA [id number] [address] [place] [address] [place] ELASTASE-1 CONCENTRATION >800 Normal >=200 [facility] Comment on above: Order Comment: Speci men Type: STOOL SPECIMENOrdering Facility: [facility] Address: [address] [place] [address] Result Comment: Inte rpretation: <100 ug/g: Severe Exocrine Pancreatic Insufficiency 100-199 ug/g: Mild to Moderate Exocrine Pancreatic Insufficiency >=200 ug/g: Normal Performed By: #### 6 30-4 #### [facility] [facility] CLIA [id number] [address] [place] [address] [place] CNOVon 06-08-2024 [facility] ANAAY [facility]ILSON ([id number]) 1940 F Date Time Provider Department 06/08/24 [...] today Was seen in the ER at [facility] on 03/23 (2 days ago) for left [...] Acid (FINAC (more content not included)... Normal [facility] CNOVon 06-02-2024 CNOV Office Visit ([facility] ) -- ANAYA WILSON ([id number]) 1940 F Date Time Provider Department 06/02/24 11:00 AM CORY, ANGELINE OWEN During your visit today, we recorded the following information about you: Temperature Pulse Blood pressure Weight 97.3 degrees 51/minute 120/72 54.1 kg Angeline Monterroso APRN.BACKWINDER 06/03/2024 3:11 PM Signed 06/03/2024 The patient consented to the use of [employer] software for draft documentation of the visit consistent with [facility]?s Notice of Privacy Practices. HPI: Anaya [...] and pick (more content not included)... Normal [facility] XR LUMBAR 3V AP/LAT/L5-S1on 06-02-2024 XR [...] hypertrophy. COMBINED IMPRESSION: Degenerative changes as described. 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Machine Operator: JAIME Transcribe Date/Time: Jun 08 2024 12:42P Dictated by : SHERRIE DOS SANTOS MD This examination was interpreted and the report reviewed and electronically signed by: SHERRIE DOS SANTOS MD on Jun 08 2024 12:43PM EST [id number] Normal [facility] XR THORACIC 3V AP/LAT/SWIMME RSon 06-02-2024 [...] hypertrophy. COMBINED IMPRESSION: Degenerative changes as described. 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Machine Operator: JAIME Transcribe Date/Time: Jun 08 2024 12:42P Dictated by : SHERRIE DOS SANTOS MD This examination was interpreted and the report reviewed and electronically signed by: SHERRIE DOS SANTOS MD on Jun 08 2024 12:43PM EST [id number] Normal [facility] ALLIED HEALTHon 05-15-2024 ALLIED HEALTH HNO ID: [id number] Author: GRACE RODAS, ERIC Service: Radiology Author [...] PATIENT PRESENTS WITH AN IMPLANTABLE OR ATTACHED NUCLEAR DESIGN ENGINEER: No ALLERGIES: Reviewed and unchanged CONTRAST ALLERGY: [...] DATE: May 15, 2024 TIME: 8:50 PM [facility] CBC W Auto Differential pane l (Bld)on 05-15-2024 Basophils (Bld) [#/Vol] 10*3/uL Normal <0.11 [facility] Comment on above: Order Comment: Speci men Type: BLOOD SPECIMENOrdering Facility: [facility] Address: [address] [place] [address] Performed By: #### 5 7021-8 ####[facility]ORY[facility]IA [id number] [place] [address] [place] Basophils/100 WBC (Bld) 0.4 % Normal [facility] Comment on above: Order Comment: Speci men Type: BLOOD SPECIMENOrdering Facility: [facility] Address: [address] [place] [address] Performed By: #### 5 7021-8 ####[facility]ORYCLIA [id number] [place] [address] [place] Differential cell count method Nom (Bld) Auto Normal [facility] Comment on above: Order Comment: Speci men Type: BLOOD SPECIMENOrdering Facility: [facility] Address: [address] [place] [address] Performed By: #### 5 7021-8 ####[facility]ORYCLIA [id number] [place] [address] [place] Eosinophils (Bld) [#/Vol] 0.07 10*3/uL Normal <0.46 [facility] Comment on above: Order Comment: Speci men Type: BLOOD SPECIMENOrdering Facility: [facility] Address: [address] [place] [address] Performed By: #### 5 7021-8 ####[facility]ORYCLIA [id number] [place] [address] [place] Eosinophils/100 WBC (Bld) 1.3 % Normal [facility] Comment on above: Order Comment: Speci men Type: BLOOD SPECIMENOrdering Facility: [facility] Address: [address] [place] [address] Performed By: #### 5 7021-8 ####[facility]ORYCLIA [id number] [place] [address] [place] Erythrocyte distribution width (RBC) [Ratio] 14.3 % Normal 11.5-15.0 [facility] Comment on above: Order Comment: Speci men Type: BLOOD SPECIMENOrdering Facility: [facility] Address: [address] [place] [address] Performed By: #### 5 7021-8 ####[facility]ORYCLIA [id number] [place] [address] [place] Hematocrit (Bld) [Volume fraction] 39.0 % Normal 36.0-46.0 [facility] Comment on above: Order Comment: Speci men Type: BLOOD SPECIMENOrdering Facility: [facility] Address: [address] [place] [address] Performed By: #### 5 7021-8 ####[facility]ORYCLIA [id number] [place] [address] [place] Hemoglobin (Bld) [Mass/Vol] 13.1 g/dL Normal 11.5-15.5 [facility] Comment on above: Order Comment: Speci men Type: BLOOD SPECIMENOrdering Facility: [facility] Address: [address] [place] [address] Performed By: #### 5 7021-8 ####[facility]ORYCLIA [id number] [place] [address] [place] Immature granulocytes (Bld) [#/Vol] 10*3/uL Normal <0.10 [facility] Comment on above: Order Comment: Speci men Type: BLOOD SPECIMENOrdering Facility: [facility] Address: [address] [place] [address] Performed By: #### 5 7021-8 ####[facility]ORYCLIA [id number] [address] [place] Immature granulocytes/100 WBC (Bld) 0.4 % Normal [facility] Comment on above: Order Comment: Speci men Type: BLOOD SPECIMENOrdering Facility: [facility] Address: [address] [place] [address] Performed By: #### 5 7021-8 ####[facility]ATORYCLIA [id number] [place] [address] [place] Lymphocytes (Bld) [#/Vol] 1.37 10*3/uL Normal 1.00-4.00 [facility] Comment on above: Order Comment: Speci men Type: BLOOD SPECIMENOrdering Facility: [facility] Address: [address] [place] [address] Performed By: #### 5 7021-8 ####[facility]ORYCLIA [id number] [address] Lymphocytes/100 WBC (Bld) 25.0 % Normal [facility] Comment on above: Order Comment: Speci men Type: BLOOD SPECIMENOrdering Facility: [facility] Address: [address] [place] [address] Performed By: #### 5 7021-8 ####[facility]ORYCLIA [id number] [address] MCH (RBC) [Entitic mass] 31.0 pg Normal 26.0-34.0 [facility] Comment on above: Order Comment: Speci men Type: BLOOD SPECIMENOrdering Facility: [facility] Address: [address] [place] [address] Performed By: #### 5 7021-8 ####[facility]ORYCLIA [id number] [address] MCHC (RBC) [Mass/Vol] 33.6 g/dL Normal 30.5-36.0 [facility] Comment on above: Order Comment: Speci men Type: BLOOD SPECIMENOrdering Facility: [facility] Address: [address] [place] [address] Performed By: #### 5 7021-8 ####[facility]ATORYCLIA [id number] [address] MCV (RBC) [Entitic vol] 92.4 fL Normal 80.0-100.0 [facility] Comment on above: Order Comment: Speci men Type: BLOOD SPECIMENOrdering Facility: [facility] Address: [address] [place] [address] Performed By: #### 5 7021-8 ####[facility]ATORYCLIA [id number] [address] Monocytes (Bld) [#/Vol] 0.50 10*3/uL Normal <0.87 [facility] Comment on above: Order Comment: Speci men Type: BLOOD SPECIMENOrdering Facility: [facility] Address: [address] [place] [address] Performed By: #### 5 7021-8 ####[facility]ATORYCLIA [id number] [place] [address] [place] Monocytes/100 WBC (Bld) 9.1 % Normal [facility] Comment on above: Order Comment: Speci men Type: BLOOD SPECIMENOrdering Facility: [facility] Address: [address] [place] [address] Performed By: #### 5 7021-8 ####[facility]ATORYCLIA [id number] [place] [address] [place] Neutrophils (Bld) [#/Vol] 3.51 10*3/uL Normal 1.45-7.50 [facility] Comment on above: Order Comment: Speci men Type: BLOOD SPECIMENOrdering Facility: [facility] Address: [address] [place] [address] Performed By: #### 5 7021-8 ####[facility]ATORYCLIA [id number] [address] [place] Neutrophils/100 WBC (Bld) 63.8 % Normal [facility] Comment on above: Order Comment: Speci men Type: BLOOD SPECIMENOrdering Facility: [facility] Address: [address] [place] [address] Performed By: #### 5 7021-8 ####[facility]ATORYCLIA [id number] [place] [address] [place] Nucleated RBC (Bld) [#/Vol] 10*3/uL Normal <0.01 [facility] Comment on above: Order Comment: Speci men Type: BLOOD SPECIMENOrdering Facility: [facility] Address: [address] [place] [address] Performed By: #### 5 7021-8 ####[facility]ATORYCLIA [id number] [place] [address] [place] Nucleated RBC/100 WBC (Bld) [Ratio] 0.0 /100 WBC Normal [facility] Comment on above: Order Comment: Speci men Type: BLOOD SPECIMENOrdering Facility: [facility] Address: [address] [place] [address] Performed By: #### 5 7021-8 ####[facility]ATORYCLIA [id number] [address] [place] Platelet mean volume (Bld) [Entitic vol] 10.3 fL Normal 9.0-12.7 [facility] Comment on above: Order Comment: Speci men Type: BLOOD SPECIMENOrdering Facility: [facility] Address: [address] [place] [address] Performed By: #### 5 7021-8 ####[facility]ATORYCLIA [id number] [address] [place] Platelets (Bld) [#/Vol] 236 10*3/uL Normal 150-400 [facility] Comment on above: Order Comment: Speci men Type: BLOOD SPECIMENOrdering Facility: [facility] Address: [address] [place] [address] Performed By: #### 5 7021-8 ####[facility]ATORYCLIA [id number] [place] [address] [place] RBC (Bld) [#/Vol] 4.22 10*6/uL Normal 3.90-5.20 [facility] Comment on above: Order Comment: Speci men Type: BLOOD SPECIMENOrdering Facility: [facility] Address: [address] [place] [address] Performed By: #### 5 7021-8 ####[facility]ATORYCLIA [id number] [address] [place] WBC (Bld) [#/Vol] 5.49 10*3/uL Normal 3.70-11.00 [facility] Comment on above: Order Comment: Speci men Type: BLOOD SPECIMENOrdering Facility: [facility] Address: [address] [place] [address] Performed By: #### 5 7021-8 ####[facility]ORATORYCLIA [id number] [place] [address] [place] [address] ABD/PEL W IVCONon 05-15-[address] ABD/PEL W IVCON * * *Final Report* * * DATE OF EXAM: May 15 2024 9:01PM [facility] [place]/PEL W IVCON / [...] infiltration of liver. 4. Small hiatal hernia. 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Machine Operator: JAIME Transcribe Date/Time: May 15 2024 9:52P Dictated by : VICKI MALDONADO MD This examination was interpreted and the report reviewed and electronically signed by: VICKI MALDONADO MD on May 15 2024 10:01PM EST [id number] Normal [facility] Comprehensive metabolic 2000 panelon 05-15-2024 Albumin [Mass/Vol] 4.1 g/dL Normal 3.9-4.9 [facility] Comment on above: Order Comment: Speci men Type: BLOOD SPECIMENOrdering Facility: [facility] Address: [address] [place] [address] Performed By: #### 2 4323-8, 3040-3 ####[facility]ORATORYCLIA [id number] [place] [address] [place] ALP [Catalytic activity/Vol] 128 U/L High 34-123 [facility] Comment on above: Order Comment: Speci men Type: BLOOD SPECIMENOrdering Facility: [facility] Address: [address] [place] [address] Performed By: #### 2 4323-8, 3040-3 ####[facility]ATORYCLIA [id number] [place] [address] [place] ALT [Catalytic activity/Vol] 31 U/L Normal 7-38 [facility] Comment on above: Order Comment: Speci men Type: BLOOD SPECIMENOrdering Facility: [facility] Address: [address] [place] [address] Performed By: #### 2 4323-8, 3040-3 ####[facility]ORATORYCLIA [id number] [place] [id number] [facility] Anion gap [Moles/Vol] 11 mmol/L Normal 8-15 [facility] Comment on above: Order Comment: Speci men Type: BLOOD SPECIMENOrdering Facility: [facility] Address: [address] [place] [address] Performed By: #### 2 4323-8, 3040-3 ####[facility]ATORYCLIA [id number] [place] [id number] [facility] [place] AST [Catalytic activity/Vol] 30 U/L Normal 13-35 [facility] Comment on above: Order Comment: Speci men Type: BLOOD SPECIMENOrdering Facility: [facility] Address: [address] [place], [place] [address] Performed By: #### 2 4323-8, 0-3 ####[facility]ATORYCLIA [id number] [place] [address] [place] Bilirubin [Mass/Vol] 0.4 mg/dL Normal 0.2-1.3 [facility] Comment on above: Order Comment: Speci men Type: BLOOD SPECIMENOrdering Facility: [facility] Address: [address] [place] [address] Performed By: #### 2 4323-8, 3039-3 ####[facility]ATORYCLIA [id number] [place] [address] [place] Calcium [Mass/Vol] 9.6 mg/dL Normal 8.5-10.2 [facility] Comment on above: Order Comment: Speci men Type: BLOOD SPECIMENOrdering Facility: [facility] Address: [address] [place], [place] [address] [place] [address] Performed By: #### 2 4323-8, 3039-3 ####[facility]ATORYCLIA [id number] [place] [address] [place] Chloride [Moles/Vol] 99 mmol/L Normal 98-107 [facility] Comment on above: Order Comment: Speci men Type: BLOOD SPECIMENOrdering Facility: [facility] Address: [address] [place] [address] Performed By: #### 2 4323-8, 3039-3 ####[facility]ATORYCLIA [id number] [place] [address] [place] CO2 [Moles/Vol] 24 mmol/L Normal 22-30 [facility] Comment on above: Order Comment: Speci men Type: BLOOD SPECIMENOrdering Facility: [facility] Address: [address] [place] [address] Performed By: #### 2 4323-8, 0-3 ####[facility]ATORYCLIA [id number] [place] [id number] [place] Creatinine [Mass/Vol] 0.76 mg/dL Normal 0.58-0.96 [facility] Comment on above: Order Comment: Speci men Type: BLOOD SPECIMENOrdering Facility: [facility] Address: [address] [place] [address] Performed By: #### 2 4323-8, 3039-3 ####[facility]ORATORYCLIA [id number] [place] [address] [place] Creatinine and Glomerular filtration rate.predicted panel (S/P/Bld) 77 mL/min/1.73m??? Normal >=60 [facility] Comment on above: Order Comment: Wellington zuniga Type: BLOOD SPECIMENOrdering Facility: [facility] Address: [address] [place] [address] Result Comment: Julianna mated Glomerular Filtration Rate [...] By: #### 2 4323-8, 3039-3 ####[facility]ATORYCLIA [id number] [place] [address] [place] Glucose [Mass/Vol] 111 mg/dL High 74-99 [facility] Comment on above: Order Comment: Wellington zuniga Type: BLOOD SPECIMENOrdering Facility: [facility] Address: [address] [place] [address] Result Comment: The [place] [employer] (ADA) provides guidance for cutoff [...] Standards of Medical Care in Diabetes 2016, [place] [employer]. Diabetes Care. 2016.39(Suppl 1). Performed By: #### 2 4323-8, 3040-3 ####[facility]ATORYCLIA [id number] [place] [address] [place] Potassium [Moles/Vol] 4.4 mmol/L Normal 3.7-5.1 [facility] Comment on above: Order Comment: Speci men Type: BLOOD SPECIMENOrdering Facility: [facility] Address: [address] [place] [address] Performed By: #### 2 4323-8, 3040-3 ####[facility]ATORYCLIA [id number] [place] [address] [place] Protein [Mass/Vol] 6.4 g/dL Normal 6.3-8.0 [facility] Comment on above: Order Comment: Speci men Type: BLOOD SPECIMENOrdering Facility: [facility] Address: [address] [place] [address] Performed By: #### 2 4323-8, 3040-3 ####[facility]ATORYCLIA [id number] [address] [place] Sodium [Moles/Vol] 134 mmol/L Low 136-144 [facility] Comment on above: Order Comment: Speci men Type: BLOOD SPECIMENOrdering Facility: [facility] Address: [address] [place] [address] Performed By: #### 2 4323-8, 3040-3 ####[facility]ATORYCLIA [id number] [address] [place] Urea nitrogen [Mass/Vol] 13 mg/dL Normal 7-21 [facility] Comment on above: Order Comment: Speci men Type: BLOOD SPECIMENOrdering Facility: [facility] Address: [address] [place] [address] Performed By: #### 2 4323-8, 3040-3 ####[facility]ORATORYCLIA [id number] [place] [address] [facility] [place] ED PROV NOTEon 05-15-2024 ED PROV NOTE HNO ID: [id number] Author: TOMER MCCOY PA-C Service: ? Author Type: Physician Service Cashier Type: ED Provider Notes Filed: 05/15/2024 23:36 [...] 123 U/L (more content not included)... Normal [facility] ED Triage Noteon 05-15-2024 ED Triage Note HNO ID: [id number] Author: JESSY ZHANG MD Service: Emergency Medicine [...] bedside clinician. SIGNATURE: Jessy Zhang MD Normal [facility] Lipase SerPl-cCncon 05-16-19 25 Lipase [Catalytic activity/Vol] 43 U/L Normal 16-61 [facility] Comment on above: Order Comment: Speci men Type: BLOOD SPECIMENOrdering Facility: [facility] Address: [address] [place] [address] Performed By: #### 2 4323-8, 3040-3 ####[facility] LABORATORYCLIA [id number] [place] [address] [place] Urinalysis complete panel (U )on 05-15-2024 Bilirubin Ql (U) Negative Normal Negative [facility] Comment on above: Order Comment: Speci men Type: URINE SPECIMENOrdering Facility: [facility] Address: [address] [place] [address] Performed By: #### 2 4356-8 ####[facility]ORATORYCLIA [id number] [place] [address] [place] Clarity (Unsp spec) Clear Normal Clear [facility] Comment on above: Order Comment: Speci men Type: URINE SPECIMENOrdering Facility: [facility] Address: [address] [place] [address] Performed By: #### 2 4356-8 ####[facility]ATORYCLIA [id number] [address] [place] Color (U) Yellow Normal Yellow [facility] Comment on above: Order Comment: Speci men Type: URINE SPECIMENOrdering Facility: [facility] Address: [address] [place] [address] Performed By: #### 2 4356-8 ####[facility]ATORYCLIA [id number] [address] [place] Epithelial cells LM.HPF (Urine sed) [#/Area] Few Normal [facility] Comment on above: Order Comment: Speci men Type: URINE SPECIMENOrdering Facility: [facility] Address: [address] [place] [address] Performed By: #### 2 4356-8 ####[facility]ORATORYCLIA [id number] [place] [address] [place] Glucose Test strip (U) [Mass/Vol] Negative Normal Negative [facility] Comment on above: Order Comment: Speci men Type: URINE SPECIMENOrdering Facility: [facility] Address: [address] [place] [address] Performed By: #### 2 4356-8 ####[facility]ATORYCLIA [id number] [place] [address] [place] Hemoglobin Ql (U) Trace Abnormal Negative [facility] Comment on above: Order Comment: Speci men Type: URINE SPECIMENOrdering Facility: [facility] Address: [address] [place] [address] Performed By: #### 2 4356-8 ####[facility]ATORYCLIA [id number] [address] [place] Ketones Ql (U) Negative Normal Negative [facility] Comment on above: Order Comment: Speci men Type: URINE SPECIMENOrdering Facility: [facility] Address: [address] [place] [address] Performed By: #### 2 4356-8 ####[facility]ATORYCLIA [id number] [address] Leukocyte esterase Test strip Ql (U) Negative Normal Negative [facility] Comment on above: Order Comment: Speci men Type: URINE SPECIMENOrdering Facility: [facility] Address: [address] [place] [address] Performed By: #### 2 4356-8 ####[facility]ATORYCLIA [id number] [place] [address] [place] Nitrite Ql (U) Negative Normal Negative [facility] Comment on above: Order Comment: Speci men Type: URINE SPECIMENOrdering Facility: [facility] Address: [address] [place] [address] Performed By: #### 2 4356-8 ####[facility] LABORATORYCLIA [id number] [address] [place] pH (U) 6.5 [pH] Normal 5.0-8.0 [facility] Comment on above: Order Comment: Speci men Type: URINE SPECIMENOrdering Facility: [facility] Address: [address] [place] [address] Performed By: #### 2 4356-8 ####[facility] LABORATORYCLIA [id number] [address] STATES [facility] Protein (U) [Mass/Vol] Negative Normal Negative [facility] Comment on above: Order Comment: Speci men Type: URINE SPECIMENOrdering Facility: [facility] Address: [address] [place] [address] Performed By: #### 2 4356-8 ####[facility] LABORATORYCLIA [id number] [place] [address] [place] RBC LM.HPF (Urine sed) [#/Area] 0-3 /HPF Normal 0-3 /HPF [facility] Comment on above: Order Comment: Speci men Type: URINE SPECIMENOrdering Facility: [facility] Address: [address] [place] [address] Performed By: #### 2 4356-8 ####[facility]ORATORYCLIA [id number] [address] Specific gravity (U) [Rel density] 1.010 Normal 1.005-1.030 [facility] Comment on above: Order Comment: Speci men Type: URINE SPECIMENOrdering Facility: [facility] Address: [address] [place] [address] Performed By: #### 2 4356-8 ####[place] LABORATORYCLIA [id number] [address] Urobilinogen Ql (U) 0.2 EU/dL Normal 0.2-1.0 EU/dL [facility] Comment on above: Order Comment: Speci men Type: URINE SPECIMENOrdering Facility: [facility] Address: [address] [place] [address] Performed By: #### 2 4356-8 ####[facility] CENTERCLIA [id number] [address] WBC LM.HPF (Urine sed) [#/Area] 0-5 /HPF Normal 0-5 /HPF [facility] Comment on above: Order Comment: Speci men Type: URINE SPECIMENOrdering Facility: [facility] Address: [address] [place] [address] Performed By: #### 2 4356-8 ####[facility] MED[facility] CENTERCLIA [id number] [address] OF [place] Bacteria Ur Culton Bacteria identified Cx Nom (U) ORGANISM ID: 1 <10,000 CFU/ml Normal urogenital ji Normal [facility] Comment on above: Performed By: #### 6 30-4 ####[facility] [place] [facility] LABCLIA [id number] [address] [place] CNOVon 05-06-2024 CNOV Office Visit (FAMPWS ) -- ANAYA WILSON ([id number]) 1940 F Date Time Provider Department 05/06/24 10:00 AM KANDI PARK During your visit today, we recorded the following information about you: Temperature Pulse Respiration Blood pressure 98.2 degrees 54/minute 12/minute 110/62 Weight 55.2 kg Kandi Park, PARMJIT.BACKWINDER 05/06/2024 11:24 AM Signed Chief Complaint Patient presents with: Urinary Frequency: For about 2-3 days completed celphalexin on 05/03 HPI Anaya Wilson is a 84 year old female who presents here today for Above Complaints. Anaya is an established patient of Dr. Bharat DO. Concerns today.. Was seen at [facility] on 04/26 d/t urinary urgency/frequency and cough/congestion. [...] a day (more content not included)... Normal [facility] UA DIP, URINE (POC)on 2024 BILIRUBIN UA (POCT) Negative Negative [facility] CLARITY UA (POCT) [facility] COLOR UA (POCT) Yellow [facility] GLUCOSE UA (POCT) Negative Negative mg/dL [facility] Hemoglobin Ql (U) Negative [facility] Interpretation and review of laboratory results Abnormal [facility] KETONE UA (POCT) Negative Negative mg/dL [facility] LEUKOCYTES UA (POCT) Trace Abnormal Negative [facility] NITRITE UA (POCT) Negative [facility] PH UA (POCT) 7.5 4.5 - 8.0 [facility] Protein Ql (U) Negative Negative mg/dL [facility] SPECIFIC GRAVITY UA (POCT) 1.015 1.005 - 1.030 [facility] UROBILINOGEN UA (POCT) 0.2 Normal E.U./dL [facility] Location:[facility], [address] [place] [address], [place], [place], [id number] [place] [address] POINT OF CARE [facility] MRI PANC/ARETHA WO/W IVCONon MRI PANC/ARETHA WO/W IVCON * * *Final Report* * * DATE OF EXAM: Apr 30 2024 12:15PM [facility] 0730 - MRI PANC/ARETHA WO/W IVCON / PROCEDURE REASON: Pancreas cyst * * * * Physician Interpretation * * * * Examination: MRI PANC/ARETHA WO/W IVCON History: Pancreas cyst Comparison: 03/23/2024 CT. 05/22/2023 MR TECHNIQUE: Using the torso phased array coil, axial STIR, T1 weighted in- and doz-sa-iikxd and axial and coronal HASTE (multslice MRCP) [...] lesion. No pathologic enhancement. No worrisome features. 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Machine Operator[facility] Transcribe Date/Time: May 01 2024 3:34P Dictated by : LIDIA AGUILAR MD This examination was interpreted and the report reviewed and electronically signed by: LIDIA AGUILAR MD on May 01 2024 3:43PM EST [id number] Normal [facility] XR CHEST 2V FRONTAL/LATon XR CHEST [...] thoracic spine. IMPRESSION: No acute radiographic abnormality. 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Machine Operator: JAIME Transcribe Date/Time: Apr 27 2024 11:46A Dictated by : RAUL MUNSON MD This examination was interpreted and the report reviewed and electronically signed by: RAUL MUNSON MD on Apr 27 2024 11:54AM EST [id number] Normal [facility] XR Chest PA and Lateralon IMPRESSION: No acute radiographic abnormality. 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Machine Operator: JAIME Transcribe Date/Time: Apr 27 2024 [...] spine. IMPRESSION IMPRESSION: No acute radiographic abnormality. 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Machine Operator: JAIME Transcribe Date/Time: Apr 27 2024 11:46A Dictated by : RAUL MUNSON MD This examination was interpreted and the report reviewed and electronically signed by: RAUL MUNSON MD on Apr 27 2024 11:54AM EST [facility] Radiology Study observation (narrative) [facility] XR Chest PA and LateralOrder ed By: [facility] Provider on 04-27-2024 [facility] Bacteria Ur Culton Bacteria identified Cx Nom (U) ORGANISM ID: 1 50,000-<100,000 CFU/ml Mixed microbiota No further workup. Mixed microbiota can be due to???urine???contamination with skin bacteria at time of collection or presence of a long-term urinary catheter. If a new culture is needed, please consider re-education of the patient on proper midstream co llection technique or straight catheterization for???urine???collection. Normal [facility] Comment on above: Performed By: #### 6 30-4 #### [facility] [place] [facility] CLIA [id number] [address] [place] [address] [place] CNOVon 04-26-2024 CNOV Office Visit (UCWSTR ) -- ANAYA WILSON Cristhian ([id number]) 1940 F Date Time Provider Department 04/26/24 1:00 PM SHERRIE GONZALES UCWSTR During your visit today, we recorded the following information about you: Temperature Pulse Respiration Blood pressure 97.9 degrees 60/minute 20/minute 120/68 Weight 55.9 kg Sherrie Gonzales APRN.BACKWINDER 04/26/2024 1:36 PM Addendum Return tomorrow for [...] your medication or fluids down. Sherrie Gonzales APRN.BACKWINDER 04/26/2024 2:05 PM Addendum Subjective HPI HPI [...] ], Ephe (more content not included)... Normal [facility] UA DIP, URINE (POC)on 2024 BILIRUBIN UA (POCT) Negative Negative [facility] CLARITY UA (POCT) Clear [facility] COLOR UA (POCT) Yellow [facility] GLUCOSE UA (POCT) Negative Negative mg/dL [facility] Hemoglobin Ql (U) Trace-intact Abnormal Negative [facility] Interpretation and review of laboratory results Abnormal [facility] KETONE UA (POCT) Negative Negative mg/dL [facility] LEUKOCYTES UA (POCT) Small Abnormal Negative [facility] NITRITE UA (POCT) Negative Negative [facility] PH UA (POCT) 7 4.5 - 8.0 [facility] Protein Ql (U) Negative Negative mg/dL [facility] SPECIFIC GRAVITY UA (POCT) 1.015 1.005 - 1.030 [facility] UROBILINOGEN UA (POCT) 0.2 Normal E.U./dL [facility] Location:[facility], [address] [facility], [place], [address] [facility] POINT OF CARE [facility] CNOVon 04-15-2024 CNOV Office Visit (FAMPWS ) -- ANAYA WILSON ([id number]) 1940 F Date Time Provider Department 04/15/24 [...] Drop in (more content not included)... Normal [facility] CNPNon 04-15-2024 CNPN Telephone (FAMPWS) -- ANAYA WILSON ([id number]) 1940 F Date Time Provider Department 04/15/24 TO [facility] During your visit today, we recorded [...] Date Reviewed: 03/25/2024 Reviewed by: Angeline Monterroso APRN.BACKWINDER - Fully Assessed Reason for Visit: Patient [...] MS Does not take Naprosyn or Ibuprofen [facility] -May 27, 2019 Patient currently taking her [...] 10/08/2018 Inflammatory (more content not included)... Normal [facility] [id number] 04-06-2024 [id number] HNO ID: [id number] Author: KATHRYN FLORES PT Service: ? Author Type: Physical Therapist Type: [id number] Filed: 04/06/2024 11:36 Note Text: [facility] Physical Therapy Plan of Care Certification Patient Name: Anaya Wilson : 1940 [facility] #: [id number] Date: 04/06/2024 To: Angeline Monterroso APRN* From [...] Planned: 1 Planned Treatment Interventions: Therapeutic exercise (27582), Self-fdc management (03447) PLAN FOR NEXT VISIT: DC -- symptoms resolved Patient demonstrates good understanding of plan of care and treatment. The above goals and plan of care were discussed and agreed upon by patient/family. For further details regarding this patient refer to the Physical Therapy electronically documented visit dated 04/06/2024. Provider Attestation I have reviewed the treatment plan for Anaya Wilson, F# [id number] for the period of 04/06/24 -- 04/06/24, established on 04/06/2024. Signature certifies the need for therapy services. Normal [facility] CBC W/Diff, Automatedon 02-0 Absolute Lymph 2.00 X10 3/uL Normal 0.83-4.51 [facility] Comment on above: Performed By: #### L 500.4050, L100.0100 #### [facility] Laboratory [address] [place], [address] Absolute Neut 6.4 X10 3/uL Normal 2.0-7.7 [facility] Comment on above: Performed By: #### L 500.4050, L100.0100 #### [facility] Laboratory [address] [place], [address] Basophils/100 WBC (Bld) 0.3 % Normal 0-1 [facility] Comment on above: Performed By: #### L 500.4050, L100.0100 #### [facility] Laboratory [address] [place], [address] Eosinophils/100 WBC (Bld) 1.2 % Normal 0-5 [facility] Comment on above: Performed By: #### L 500.4050, L100.0100 #### [facility] Laboratory [address] [place], [address] Erythrocyte distribution width (RBC) [Ratio] 14.3 % Normal 11.6-14.6 [facility] Comment on above: Performed By: #### L 500.4050, L100.0100 #### [facility] Laboratory [address] [place], [address] Hematocrit (Bld) [Volume fraction] 39.0 % Normal 37-47 [facility] Comment on above: Performed By: #### L 500.4050, L100.0100 #### [facility] Laboratory [address] [place], [address] Hemoglobin (Bld) [Mass/Vol] 12.4 g/dL Normal 12.0-15.0 [facility] Comment on above: Performed By: #### L 500.4050, L100.0100 #### [facility] Laboratory [address] [place], [address] IG% 0.500 Normal 0.0-0.9 [facility] Comment on above: Result Comment: IG% - Immature Granulocytes (promyelocytes, myelocytes and metamyelocytes) > 1% indicates that a LEFT SHIFT is Present. Performed By: #### L 500.4050, L100.0100 #### [facility] Laboratory [address] [place], [address] Lymphocytes/100 WBC (Bld) 21.9 % Normal 19-41 [facility] Comment on above: Performed By: #### L 500.4050, L100.0100 #### [facility] Laboratory [address] [place], [address] MCH (RBC) [Entitic mass] 29.9 pg Normal 27.0-32.0 [facility] Comment on above: Performed By: #### L 500.4050, L100.0100 #### [facility] Laboratory [address] [place], [address] MCHC (RBC) [Mass/Vol] 31.8 g/dL Low 32-36 [facility] Comment on above: Performed By: #### L 500.4050, L100.0100 #### [facility] Laboratory [address] [place], [address] MCV (RBC) [Entitic vol] 94.0 fL Normal 81-99 [facility] Comment on above: Performed By: #### L 500.4050, L100.0100 #### [facility] Laboratory [address] [place], [address] Monocytes/100 WBC (Bld) 6.7 % Normal 0-10 [facility] Comment on above: Performed By: #### L 500.4050, L100.0100 #### [facility] Laboratory [address] [place], [address] Neutrophils/100 WBC (Bld) 69.4 % Normal 47-70 [facility] Comment on above: Performed By: #### L 500.4050, L100.0100 #### [facility] Laboratory [address] [place], [address] Nucleated RBC (Bld) [#/Vol] 0 10*3/uL Normal 0-5 [facility] Comment on above: Performed By: #### L 500.4050, L100.0100 #### [facility] Laboratory [address] [place], [address] Platelet mean volume (Bld) [Entitic vol] 10.8 fL Normal 6.2-12.0 [facility] Comment on above: Performed By: #### L 500.4050, L100.0100 #### [facility] Laboratory [address] [place], [address] Platelets (Bld) [#/Vol] 222 10*3/uL Normal 150-450 [facility] Comment on above: Performed By: #### L 500.4050, L100.0100 #### [facility] Laboratory [address] [place], [address] RBC (Bld) [#/Vol] 4.15 10*6/uL Low 4.2-5.4 [facility] Comment on above: Performed By: #### L 500.4050, L100.0100 #### [facility] [address] [place], [address] RDW SD 48.5 fl High 35.1-43.9 [facility] Comment on above: Performed By: #### L 500.4050, L100.0100 #### [facility] [address] [place], [address] WBC (Bld) [#/Vol] 9.2 10*3/uL Normal 4.4-11.0 [facility] Comment on above: Performed By: #### L 500.4050, L100.0100 #### [facility] [address] [place], [address] CNTHERAPYon 04-06-2024 CNTHERAPY OT/PT/Speech Visit ( PTWS) -- ANAYA WILSON ([id number]) 1940 F Date Time Provider Department 04/06/24 11:00 AM KATHRYN FLORES Date Time Provider Department Center 04/06/2024 11:00 AM [id number] FLORES PTSHIRLEY [facility] Reason for Visit: PT Eval [747] [...] Date Reviewed: 03/25/2024 Reviewed by: Angeline Monterroso APRN.BACKWINDER - Fully Assessed Prescriptions as of 04/06/2024 [...] MS Does not take Naprosyn or Ibuprofen [facility] -May 27, 2019 Patient currently taking her prescription medications as prescriped. Esperanza Singleton RN 2019 Pt. stating has not been taking polyethylene glycol. N. Cervantes, RN. Normal [facility] Metabolic Prof ilon 04-06-2024 Albumin [Mass/Vol] 3.4 g/dL Normal 3.2-5.0 [facility] Comment on above: Performed By: #### L 500.4050, L100.0100 #### [facility] Laboratory [address] [place], [address] Albumin/Globulin [Mass ratio] 1.1 {ratio} Normal 0.9-2.4 [facility] Comment on above: Performed By: #### L 500.4050, L100.0100 #### [facility] Laboratory [address] [place], [address] ALK P 119 U/L High 45-117 [facility] Comment on above: Performed By: #### L 500.4050, L100.0100 #### [facility] [address] [place], [address] ALT [Catalytic activity/Vol] 29 U/L Normal 13-56 [facility] Comment on above: Performed By: #### L 500.4050, L100.0100 #### [facility] Laboratory [address] [place], [address] AST [Catalytic activity/Vol] 25 U/L Normal 15-37 [facility] Comment on above: Performed By: #### L 500.4050, L100.0100 #### [facility] Laboratory [address] [place], [address] Bilirubin [Mass/Vol] 0.60 mg/dL Normal 0.20-1.00 [facility] Comment on above: Result Comment: For patients on eltrombopag therapy, use of Dimension Dahlgren TBIL is not recommended. Performed By: #### L 500.4050, L100.0100 #### [facility] [address] [place], [address] BUN/CRE 14.4 RATIO Normal 10-20 [facility] Comment on above: Performed By: #### L 500.4050, L100.0100 #### [facility] Laboratory [address] [place], [address] CA,Total 9.1 mg/dL Normal 8.5-10.1 [facility] Comment on above: Performed By: #### L 500.4050, L100.0100 #### [facility] Laboratory [address] [place], [address] Chloride [Moles/Vol] 102 mmol/L Normal 98-107 [facility] Comment on above: Performed By: #### L 500.4050, L100.0100 #### [facility] Laboratory [address] [place], [address] CO2 [Moles/Vol] 27.0 mmol/L Normal 21.0-32.0 [facility] Comment on above: Performed By: #### L 500.4050, L100.0100 #### [facility] Laboratory [address] [place], [address] Creatinine [Mass/Vol] 0.62 mg/dL Normal 0.55-1.02 [facility] Comment on above: Result Comment: The validity of the calculated GFR GFRAA in patients over 70 years has not been determined. Clinical correlation is essential. Performed By: #### L 500.4050, L100.0100 #### [facility] Laboratory [address] [place], [address] EST GFR - AA 117 mL/min Normal >60 [facility] Comment on above: Result Comment: Afri can Moldovan GFR Calc Performed By: #### L 500.4050, L100.0100 #### [facility] Laboratory [address] [place], [address] GAP 7 Normal 5-15 [facility] Comment on above: Performed By: #### L 500.4050, L100.0100 #### [facility] Laboratory [address] [place], [address] GFR/1.73 sq M.predicted among non-blacks MDRD (S/P/Bld) [Vol rate/Area] 97 mL/min/{1.73_m2} Normal >60 [facility] Comment on above: Result Comment: Non- GFR Calc Performed By: #### L 500.4050, L100.0100 #### [facility] Laboratory [address] [place], [address] Globulin (S) [Mass/Vol] 3.1 g/dL Normal 2.2-4.2 [facility] Comment on above: Performed By: #### L 500.4050, L100.0100 #### [facility] [address] [place], [address] Glucose [Mass/Vol] 100 mg/dL Normal 74-106 [facility] Comment on above: Result Comment: Fast ing Glucose result from 100 to 125 mg/dL suggests IMPAIRED HOMEOSTASIS per A.D.A. criteria. Performed By: #### L 500.4050, L100.0100 #### [facility] [address] [place], [address] Potassium [Moles/Vol] 4.2 mmol/L Normal 3.5-5.1 [facility] Comment on above: Performed By: #### L 500.4050, L100.0100 #### [facility] [address] [place], [address] Sodium [Moles/Vol] 136 mmol/L Normal 136-145 [facility] Comment on above: Performed By: #### L 500.4050, L100.0100 #### [facility] [address] [place], [address] T PROT 6.5 g/dL Normal 6.4-8.2 [facility] Comment on above: Performed By: #### L 500.4050, L100.0100 #### [facility] [address] [place], [address] Urea nitrogen [Mass/Vol] 9 mg/dL Normal 7-18 [facility] Comment on above: Performed By: #### L 500.4050, L100.0100 #### [facility] [address] [place], [address] CNOVon 03-25-2024 CNOV Office Visit (FAMPWS ) -- ANAYA WILSON ([id number]) 1940 Sheryl Whittaker [facility] Date Time Provider Department 03/25/24 11:00 AM [facility] During your visit today, we recorded the following information about you: Pulse Respiration Blood pressure Weight 53/minute 16/minute 130/64 55.9 kg Angeline Monterroso APRN.BACKWINDER 03/25/2024 11:35 AM Signed Chief Complaint Patient presents with: ER F/U: Left side abd pain, muscle strain HPI Anaya Wilson is a 84 year old female who presents here today for Above Complaints.. Was seen in the ER at [facility] on 03/23 (2 days ago) for left [...] Smokeless toba (more content not included)... Normal [facility] 03-25-2024 [facility] Telephone (INTMWS) -- ANAYA WILSON ([id number]) 1940 F Panfilo Carty* Date Time Provider Department 03/25/24 EDENILSON NICHOLSON INTWS During your visit today, we recorded the following information about you: Makayla Ochoa LPN 03/25/2024 11:39 AM Signed Electronic PA rec'd and completed for cyclobenzapine. This was approved. Prior authorization approved Payer: [employer] [phone] Note from payer: CaseId:[id number];Status:Margaret roved;Review Type:Prior Auth;Coverage Start Date:02/24/2024;Coverage End Date:03/25/2025; Approval Details Authorized from February 24, 2024 to March 25, 2025 Electronic appeal: Not supported View History Pharmacy Benefits Open Encounter ANAYA WILSON - [facility] ([facility] ([employer]) Covered: Retail, Mail Order Unknown: Specialty, Long-Term Care BIN: [id number] : 1940 Group ID: [id number] PCN: Legal sex: F Group name: MEDICARE ADVANTAGE Address: [address] [facility] [address] Medication Being Authorized cyclobenzaprine (FLEXERIL) 5 mg tablet Take 1 tablet by mouth three times a day as needed. Dispense: 30 tablet Refills: 1 Start: 03/25/2024 Class: Normal Diagnoses: Acute left-sided low back pain without sciatica This order has been released to its destination. To be filled at: e- [id number] [place] [address] - [address] [facility] [phone] 4[address] Allergies As of Date: 03/25/2024 Noted [...] Date Reviewed: 03/25/2024 Reviewed by: Angeline Monterroso APRN.BACKWINDER - Fully Assessed Reason for Visit: Insurance [...] MS Does not take Naprosyn or Ibuprofen [facility] -May 27, 2019 Patient currently taking her [...] 05/20/2017 Postmeno (more content not included)... [facility] HNO ID: [id number] Author: HUSSAIN VAZQUEZ RT(R) Service: ? Author [...] PATIENT PRESENTS WITH AN IMPLANTABLE OR ATTACHED NUCLEAR DESIGN ENGINEER: No ALLERGIES: Reviewed and unchanged CONTRAST ALLERGY: [...] PERIPHERAL IV DATA: Inpatient - refer to [facility] documentation RADIOLOGY DEPARTMENT: CT; Exam(s) Completed: Abdomen/Pelvis SIGNATURE: RT Jennifer(R) PATIENT NAME: Anaya Wilson DATE: March 23, 2024 TIME: 2:33 AM Normal [facility] CBC W Auto Differential pane l (Bld)on 03-23-2024 Basophils (Bld) [#/Vol] 0.03 10*3/uL Normal <0.11 [facility] Comment on above: Order Comment: Speci men Type: BLOOD SPECIMENOrdering Facility: [facility] Address: [address] [place] [address] Performed By: #### 5 7021-8 ####[facility] LABORATORYCLIA [id number] [place] [address] [place] Basophils/100 WBC (Bld) 0.3 % Normal [facility] Comment on above: Order Comment: Speci men Type: BLOOD SPECIMENOrdering Facility: [facility] Address: [address] [place] [address] Performed By: #### 5 7021-8 ####[facility] LABORATORYCLIA [id number] [address] Differential cell count method Nom (Bld) Auto Normal [facility] Comment on above: Order Comment: Speci men Type: BLOOD SPECIMENOrdering Facility: [facility] Address: [address] [place] [address] Performed By: #### 5 7021-8 ####[facility] LABORATORYCLIA [id number] [place] [address] [place] Eosinophils (Bld) [#/Vol] 0.13 10*3/uL Normal <0.46 [facility] Comment on above: Order Comment: Speci men Type: BLOOD SPECIMENOrdering Facility: [facility] Address: [address] [place] [address] Performed By: #### 5 7021-8 ####[facility] LABORATORYCLIA [id number] [address] Eosinophils/100 WBC (Bld) 1.3 % Normal [facility] Comment on above: Order Comment: Speci men Type: BLOOD SPECIMENOrdering Facility: [facility] Address: [address] [place] [address] Performed By: #### 5 7021-8 ####[facility] LABORATORYCLIA [id number] [address] [place] Erythrocyte distribution width (RBC) [Ratio] 14.0 % Normal 11.5-15.0 [facility] Comment on above: Order Comment: Speci men Type: BLOOD SPECIMENOrdering Facility: [facility] Address: [address] [place] [address] Performed By: #### 5 7021-8 ####[facility] LABORATORYCLIA [id number] [address] [place] Hematocrit (Bld) [Volume fraction] 40.0 % Normal 36.0-46.0 [facility] Comment on above: Order Comment: Speci men Type: BLOOD SPECIMENOrdering Facility: [facility] Address: [address] [place] [address] Performed By: #### 5 7021-8 ####[facility] LABORATORYCLIA [id number] [place] [address] [place] Hemoglobin (Bld) [Mass/Vol] 12.9 g/dL Normal 11.5-15.5 [facility] Comment on above: Order Comment: Speci men Type: BLOOD SPECIMENOrdering Facility: [facility] Address: [address] [place] [address] Performed By: #### 5 7021-8 ####[facility] LABORATORYCLIA [id number] [place] [address] [place] Immature granulocytes (Bld) [#/Vol] 0.05 10*3/uL Normal <0.10 [facility] Comment on above: Order Comment: Speci men Type: BLOOD SPECIMENOrdering Facility: [facility] Address: [address] [place] [address] Performed By: #### 5 7021-8 ####[facility] LABORATORYCLIA [id number] [address] Immature granulocytes/100 WBC (Bld) 0.5 % Normal [facility] Comment on above: Order Comment: Speci men Type: BLOOD SPECIMENOrdering Facility: [facility] Address: [address] [place] [address] Performed By: #### 5 7021-8 ####[facility] LABORATORYCLIA [id number] [place] [address] [place] Lymphocytes (Bld) [#/Vol] 1.64 10*3/uL Normal 1.00-4.00 [facility] Comment on above: Order Comment: Speci men Type: BLOOD SPECIMENOrdering Facility: [facility] Address: [address] [place] [address] Performed By: #### 5 7021-8 ####[facility] LABORATORYCLIA [id number] [address] [place] Lymphocytes/100 WBC (Bld) 15.9 % Normal [facility] Comment on above: Order Comment: Speci men Type: BLOOD SPECIMENOrdering Facility: [facility] Address: [address] [place] [address] Performed By: #### 5 7021-8 ####[facility] LABORATORYCLIA [id number] [address] MCH (RBC) [Entitic mass] 29.9 pg Normal 26.0-34.0 [facility] Comment on above: Order Comment: Speci men Type: BLOOD SPECIMENOrdering Facility: [facility] Address: [address] [place] [address] Performed By: #### 5 7021-8 ####[facility] LABORATORYCLIA [id number] [address] MCHC (RBC) [Mass/Vol] 32.3 g/dL Normal 30.5-36.0 [facility] Comment on above: Order Comment: Speci men Type: BLOOD SPECIMENOrdering Facility: [facility] Address: [address] [place] [address] Performed By: #### 5 7021-8 ####[facility] LABORATORYCLIA [id number] [address] MCV (RBC) [Entitic vol] 92.6 fL Normal 80.0-100.0 [facility] Comment on above: Order Comment: Speci men Type: BLOOD SPECIMENOrdering Facility: [facility] Address: [address] [place] [address] Performed By: #### 5 7021-8 ####[facility] LABORATORYCLIA [id number] [address] Monocytes (Bld) [#/Vol] 0.81 10*3/uL Normal <0.87 [facility] Comment on above: Order Comment: Speci men Type: BLOOD SPECIMENOrdering Facility: [facility] Address: [address] [place] [address] Performed By: #### 5 7021-8 ####[facility] LABORATORYCLIA [id number] [address] Monocytes/100 WBC (Bld) 7.9 % Normal [facility] Comment on above: Order Comment: Speci men Type: BLOOD SPECIMENOrdering Facility: [facility] Address: [address] [place] [address] Performed By: #### 5 7021-8 ####[facility] LABORATORYCLIA [id number] [place] [address] [place] Neutrophils (Bld) [#/Vol] 7.64 10*3/uL High 1.45-7.50 [facility] Comment on above: Order Comment: Speci men Type: BLOOD SPECIMENOrdering Facility: [facility] Address: [address] [place] [address] Performed By: #### 5 7021-8 ####[facility] LABORATORYCLIA [id number] [address] [place] Neutrophils/100 WBC (Bld) 74.1 % Normal [facility] Comment on above: Order Comment: Speci men Type: BLOOD SPECIMENOrdering Facility: [facility] Address: [address] [place] [address] Performed By: #### 5 7021-8 ####[facility] LABORATORYCLIA [id number] [address] [place] Nucleated RBC (Bld) [#/Vol] 10*3/uL Normal <0.01 [facility] Comment on above: Order Comment: Speci men Type: BLOOD SPECIMENOrdering Facility: [facility] Address: [address] [place] [address] Performed By: #### 5 7021-8 ####[facility] LABORATORYCLIA [id number] [address] Nucleated RBC/100 WBC (Bld) [Ratio] 0.0 /100 WBC Normal [facility] Comment on above: Order Comment: Speci men Type: BLOOD SPECIMENOrdering Facility: [facility] Address: [address] [place] [address] Performed By: #### 5 7021-8 ####[facility] LABORATORYCLIA [id number] [place] [address] [place] Platelet mean volume (Bld) [Entitic vol] 9.8 fL Normal 9.0-12.7 [facility] Comment on above: Order Comment: Speci men Type: BLOOD SPECIMENOrdering Facility: [facility] Address: [address] [place] [address] Performed By: #### 5 7021-8 ####[facility] LABORATORYCLIA [id number] [place] [address] [facility] Platelets (Bld) [#/Vol] 218 10*3/uL Normal 150-400 [facility] Comment on above: Order Comment: Speci men Type: BLOOD SPECIMENOrdering Facility: [facility] Address: [address] [place] [address] Performed By: #### 5 7021-8 ####[facility] LABORATORYCLIA [id number] [place] [address] [place] RBC (Bld) [#/Vol] 4.32 10*6/uL Normal 3.90-5.20 [facility] Comment on above: Order Comment: Speci men Type: BLOOD SPECIMENOrdering Facility: [facility] Address: [address] [place] [address] Performed By: #### 5 7021-8 ####[facility] LABORATORYCLIA [id number] [address] [place] WBC (Bld) [#/Vol] 10.30 10*3/uL Normal 3.70-11.00 [facility] Comment on above: Order Comment: Speci men Type: BLOOD SPECIMENOrdering Facility: [facility] Address: [address] [place] [address] Performed By: #### 5 7021-8 ####[facility] LABORATORYCLIA [id number] [address] [facility] CNPDoreen 03-23-2024 [facility] (LEXIE) -- ANAYA WILSON ([id number]) [address] Date Time Provider Department 03/23/24 [facility] During your visit today, we recorded the following information about you: Hilaria Cifuentes LPN 03/23/2024 12:00 PM Signed Pt called to reports she went to [facility] today 03-23-24 due to left lower [...] MS Does not take Naprosyn or Ibuprofen [facility] -May 27, 2019 Patient currently taking her prescription medications as prescriped. Esperanza Singelton RN 2019 Pt. stating has not been [...] syndrome [G56.00] more content not included)... Normal [facility] CT ABD/PEL W IVCONon 025 CT ABD/PEL W IVCON * * *Final Report* * * DATE OF EXAM: Mar 23 2024 2:35AM [facility] [place]BD/PEL W IVCON / [...] process. Stable cystic lesion within the pancreas. 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Machine Operator: PSCB Transcribe Date/Time: Mar 23 2024 3:38A Dictated by : CLAERNCE MARSH MD This examination was interpreted and the report reviewed and electronically signed by: CLARENCE MARSH MD on Mar 23 2024 3:45AM EST [id number] Normal [facility] Comprehensive metabolic 2000 panelon 03-23-2024 Albumin [Mass/Vol] 3.8 g/dL Low 3.9-4.9 [facility] Comment on above: Order Comment: Speci men Type: BLOOD SPECIMENOrdering Facility: [facility] Address: [address] [place] [address] Performed By: #### 2 4323-8, 3040-3 ####[facility] LABORATORYCLIA [id number] [place] [address] [place] ALP [Catalytic activity/Vol] 136 U/L High 34-123 [facility] Comment on above: Order Comment: Speci men Type: BLOOD SPECIMENOrdering Facility: [facility] Address: [address] [place] [address] Performed By: #### 2 4323-8, 3040-3 ####[facility] LABORATORYCLIA [id number] [place] [address] [place] ALT [Catalytic activity/Vol] 25 U/L Normal 7-38 [facility] Comment on above: Order Comment: Speci men Type: BLOOD SPECIMENOrdering Facility: [facility] Address: [facility] [place] [address] Performed By: #### 2 4323-8, 3040-3 ####[facility] LABORATORYCLIA [id number] [place] [address] [place] Anion gap [Moles/Vol] 8 mmol/L Normal 8-15 [facility] Comment on above: Order Comment: Speci men Type: BLOOD SPECIMENOrdering Facility: [facility] Address: [address] [facility] [place] [place] [address] Performed By: #### 2 4323-8, 0-3 ####[facility] LABORATORYCLIA [id number] [place] [address] [place] AST [Catalytic activity/Vol] 28 U/L Normal 13-35 [facility] Comment on above: Order Comment: Speci men Type: BLOOD SPECIMENOrdering Facility: [facility] Address: [address] [place] [address] Performed By: #### 2 4323-8, 3039-3 ####[facility] LABORATORYCLIA [id number] [place] [address] [place] Bilirubin [Mass/Vol] 0.3 mg/dL Normal 0.2-1.3 [facility] Comment on above: Order Comment: Speci men Type: BLOOD SPECIMENOrdering Facility: [facility] Address: [address] [place] [address] Performed By: #### 2 4323-8, 3039-3 ####[facility] LABORATORYCLIA [id number] [place] [address] [place] Calcium [Mass/Vol] 9.3 mg/dL Normal 8.5-10.2 [facility] Comment on above: Order Comment: Speci men Type: BLOOD SPECIMENOrdering Facility: [facility] Address: [address] [place] [address] Performed By: #### 2 4323-8, 0-3 ####[facility] LABORATORYCLIA [id number] [place] [address] [place] Chloride [Moles/Vol] 102 mmol/L Normal 98-107 [facility] Comment on above: Order Comment: Speci men Type: BLOOD SPECIMENOrdering Facility: [facility] Address: [address] [place] [address] Performed By: #### 2 4323-8, 0-3 ####[facility] LABORATORYCLIA [id number] [place] [address] [place] CO2 [Moles/Vol] 28 mmol/L Normal 22-30 [facility] Comment on above: Order Comment: Wellington zuniga Type: BLOOD SPECIMENOrdering Facility: [facility] Address: [address] [place] [address] Performed By: #### 2 4323-8, 3040-3 ####[facility] LABORATORYCLIA [id number] [place] [address] [facility] Creatinine [Mass/Vol] 0.64 mg/dL Normal 0.58-0.96 [facility] Comment on above: Order Comment: Wellington zuniga Type: BLOOD SPECIMENOrdering Facility: [facility] Address: [address] [place] [address] Performed By: #### 2 4323-8, 3039-3 ####[facility] LABORATORYCLIA [id number] [address] Creatinine and Glomerular filtration rate.predicted panel (S/P/Bld) 87 mL/min/1.73m??? Normal >=60 [facility] Comment on above: Order Comment: Wellington zuniga Type: BLOOD SPECIMENOrdering Facility: [facility] Address: [address] [place] [address] Result Comment: Julianna mated Glomerular Filtration Rate [...] By: #### 2 4323-8, 0-3 ####[facility] LABORATORYCLIA [id number] [place] [id number] [place] Glucose [Mass/Vol] 114 mg/dL High 74-99 [facility] Comment on above: Order Comment: Girishaamir zuniga Type: BLOOD SPECIMENOrdering Facility: [facility] Address: [address] [place] [address] Result Comment: The [place] [employer] Association (ADA) provides guidance for cutoff [...] Standards of Medical Care in Diabetes 2016, [place] [employer]. Diabetes Care. 2016.39(Suppl 1). Performed By: #### 2 4323-8, 0-3 ####[facility] LABORATORYCLIA [id number] [place] [address] [place] Potassium [Moles/Vol] 4.0 mmol/L Normal 3.7-5.1 [facility] Comment on above: Order Comment: Wellington zuniga Type: BLOOD SPECIMENOrdering Facility: [facility] Address: [address] [place] [address] Performed By: #### 2 43238, 3039-3 ####[facility] LABORATORYCLIA [id number] [place] [address] [place] Protein [Mass/Vol] 6.3 g/dL Normal 6.3-8.0 [facility] Comment on above: Order Comment: Wellington zuniga Type: BLOOD SPECIMENOrdering Facility: [facility] Address: [address] [place] [address] Performed By: #### 2 4323-8, 0-3 ####[facility] LABORATORYCLIA [id number] [place] [address] [place] Sodium [Moles/Vol] 138 mmol/L Normal 136-144 [facility] Comment on above: Order Comment: Wellington zuniga Type: BLOOD SPECIMENOrdering Facility: [facility] Address: [address] [place] [address] Performed By: #### 2 4323-8, 0-3 ####[facility] LABORATORYCLIA [id number] [place] [address] [place] Urea nitrogen [Mass/Vol] 7 mg/dL Normal 7-21 [facility] Comment on above: Order Comment: Speci men Type: BLOOD SPECIMENOrdering Facility: [facility] Address: [facility] [place] [address] Performed By: #### 2 4323-8, 3040-3 ####[facility] LABORATORYCLIA [id number] [place] [address] [place] ED NOTEon 03-23-2024 ED NOTE HNO ID: [id number] Author: FILIPE GARCIA, ROBERT Service: ? Author Type: Registered Nurse Type: ED Notes Filed: 03/23/2024 04:38 Note Text: PT discharge instructions reviewed Pt advised to follow up as needed Normal [facility] ED PROV NOTEon 03-23-2024 ED PROV NOTE HNO ID: [id number] Author: MARGARET MENDOZA DO Service: Emergency Medicine [...] to d (more content not included)... Normal [facility] Lipase SerPl-cCncon 03-23-19 25 Lipase [Catalytic activity/Vol] 32 U/L Normal 16-61 [facility] Comment on above: Order Comment: Speci men Type: BLOOD SPECIMENOrdering Facility: [facility] Address: [address] [place] [address] Performed By: #### 2 4323-8, 3040-3 ####[facility] LABORATORYCLIA [id number] [place] [address] [place] Urinalysis complete panel (U )on 03-23-2024 Bilirubin Ql (U) Negative Normal Negative [facility] Comment on above: Order Comment: Speci men Type: URINE SPECIMENOrdering Facility: [facility] Address: [address] [place] [address] Performed By: #### 2 4356-8 ####[facility] LABORATORYCLIA [id number] [place] [address] [place] Clarity (Unsp spec) Clear Normal Clear [facility] Comment on above: Order Comment: Speci men Type: URINE SPECIMENOrdering Facility: [facility] Address: [address] [place] [address] Performed By: #### 2 4356-8 ####[facility] LABORATORYCLIA [id number] [place] [address] [facility] [place] Color (U) Yellow Normal Yellow [facility] Comment on above: Order Comment: Speci men Type: URINE SPECIMENOrdering Facility: [facility] Address: [address] [place] [address] Performed By: #### 2 4356-8 ####[facility] LABORATORYCLIA [id number] [place] [address] [facility] [place] Epithelial cells LM.HPF (Urine sed) [#/Area] Few Normal [facility] Comment on above: Order Comment: Speci men Type: URINE SPECIMENOrdering Facility: [facility] Address: [address] [place] [address] Performed By: #### 2 4356-8 ####[facility] LABORATORYCLIA [id number] [address] [place] Glucose Test strip (U) [Mass/Vol] Negative Normal Negative [facility] Comment on above: Order Comment: Speci men Type: URINE SPECIMENOrdering Facility: [facility] Address: [address] [place] [address] Performed By: #### 2 4356-8 ####[facility] LABORATORYCLIA [id number] [address] [place] Hemoglobin Ql (U) Negative Normal Negative [facility] Comment on above: Order Comment: Speci men Type: URINE SPECIMENOrdering Facility: [facility] Address: [address] [place] [address] Performed By: #### 2 4356-8 ####[facility] LABORATORYCLIA [id number] [place] [address] [place] Ketones Ql (U) Negative Normal Negative [facility] Comment on above: Order Comment: Speci men Type: URINE SPECIMENOrdering Facility: [facility] Address: [address] [place] [address] Performed By: #### 2 4356-8 ####[facility] LABORATORYCLIA [id number] [address] Leukocyte esterase Test strip Ql (U) Negative Normal Negative [facility] Comment on above: Order Comment: Speci men Type: URINE SPECIMENOrdering Facility: [facility] Address: [address] [place] [address] Performed By: #### 2 4356-8 ####[facility] LABORATORYCLIA [id number] [address] [place] Nitrite Ql (U) Negative Normal Negative [facility] Comment on above: Order Comment: Speci men Type: URINE SPECIMENOrdering Facility: [facility] Address: [address] [place] [address] Performed By: #### 2 4356-8 ####[facility] LABORATORYCLIA [id number] [address] [place] pH (U) 8.0 [pH] Normal 5.0-8.0 [facility] Comment on above: Order Comment: Speci men Type: URINE SPECIMENOrdering Facility: [facility] Address: [address] [place] [address] Performed By: #### 2 4356-8 ####[facility] LABORATORYCLIA [id number] [address] STATES [facility] Protein (U) [Mass/Vol] Negative Normal Negative [facility] Comment on above: Order Comment: Speci men Type: URINE SPECIMENOrdering Facility: [facility] Address: [address] [place] [address] Performed By: #### 2 4356-8 ####[facility] LABORATORYCLIA [id number] [place] [address] [place] RBC LM.HPF (Urine sed) [#/Area] 0-3 /HPF Normal 0-3 /HPF [facility] Comment on above: Order Comment: Speci men Type: URINE SPECIMENOrdering Facility: [facility] Address: [address] [place] [address] Performed By: #### 2 4356-8 ####[facility] LABORATORYCLIA [id number] [place] [address] [place] Specific gravity (U) [Rel density] 1.010 Normal 1.005-1.030 [facility] Comment on above: Order Comment: Speci men Type: URINE SPECIMENOrdering Facility: [facility] Address: [address] [place] [address] Performed By: #### 2 4356-8 ####[facility] LABORATORYCLIA [id number] [address] Urobilinogen Ql (U) 0.2 EU/dL Normal 0.2-1.0 EU/dL [facility] Comment on above: Order Comment: Speci men Type: URINE SPECIMENOrdering Facility: [facility] Address: [address] [place] [address] Performed By: #### 2 4356-8 ####[facility] LABORATORYCLIA [id number] [address] WBC LM.HPF (Urine sed) [#/Area] 0-5 /HPF Normal 0-5 /HPF [facility] Comment on above: Order Comment: Speci men Type: URINE SPECIMENOrdering Facility: [facility] Address: [address] [place] [address] Performed By: #### 2 4356-8 ####[facility] LABORATORYCLIA [id number] [address] CBC W/Diff, Automatedon 12-0 -2023 Absolute Lymph 2.00 X10 3/uL Normal 0.83-4.51 [facility] Comment on above: Performed By: #### L 100.0100, L500.4050 #### [facility] Laboratory [address] [facility] [address] Absolute Neut 5.5 X10 3/uL Normal 2.0-7.7 [facility] Comment on above: Performed By: #### L 100.0100, L500.4050 #### [facility] [address] [place], [address] Basophils/100 WBC (Bld) 0.6 % Normal 0-1 [facility] Comment on above: Performed By: #### L 100.0100, L500.4050 #### [facility] [address] [place], [address] Eosinophils/100 WBC (Bld) 2.1 % Normal 0-5 [facility] Comment on above: Performed By: #### L 100.0100, L500.4050 #### [facility] [address] [place], [address] Erythrocyte distribution width (RBC) [Ratio] 15.0 % High 11.6-14.6 [facility] Comment on above: Performed By: #### L 100.0100, L500.4050 #### [facility] Laboratory [address] [place], [address] Hematocrit (Bld) [Volume fraction] 39.7 % Normal 37-47 [facility] Comment on above: Performed By: #### L 100.0100, L500.4050 #### [facility] Laboratory [address] [place], [address] Hemoglobin (Bld) [Mass/Vol] 12.9 g/dL Normal 12.0-15.0 [facility] Comment on above: Performed By: #### L 100.0100, L500.4050 #### [facility] Laboratory [address] [place], [address] IG% 0.700 Normal 0.0-0.9 [facility] Comment on above: Result Comment: IG% - Immature Granulocytes (promyelocytes, myelocytes and metamyelocytes) > 1% indicates that a LEFT SHIFT is Present. Performed By: #### L 100.0100, L500.4050 #### [facility] Laboratory [address] [place], [address] Lymphocytes/100 WBC (Bld) 22.9 % Normal 19-41 [facility] Comment on above: Performed By: #### L 100.0100, L500.4050 #### [facility] Laboratory [address] [place], [address] MCH (RBC) [Entitic mass] 29.9 pg Normal 27.0-32.0 [facility] Comment on above: Performed By: #### L 100.0100, L500.4050 #### [facility] Laboratory [address] [place], [address] MCHC (RBC) [Mass/Vol] 32.5 g/dL Normal 32-36 [facility] Comment on above: Performed By: #### L 100.0100, L500.4050 #### [facility] Laboratory [address] [place], [address] MCV (RBC) [Entitic vol] 91.9 fL Normal 81-99 [facility] Comment on above: Performed By: #### L 100.0100, L500.4050 #### [facility] Laboratory [address] [place], [address] Monocytes/100 WBC (Bld) 10.6 % High 0-10 [facility] Comment on above: Performed By: #### L 100.0100, L500.4050 #### [facility] Laboratory [address] [place], [address] Neutrophils/100 WBC (Bld) 63.1 % Normal 47-70 [facility] Comment on above: Performed By: #### L 100.0100, L500.4050 #### [facility] Laboratory [address] [place], [address] Nucleated RBC (Bld) [#/Vol] 0 10*3/uL Normal 0-5 [facility] Comment on above: Performed By: #### L 100.0100, L500.4050 #### [facility] Laboratory [address] [place], [address] Platelet mean volume (Bld) [Entitic vol] 11.1 fL Normal 6.2-12.0 [facility] Comment on above: Performed By: #### L 100.0100, L500.4050 #### [facility] Laboratory [address] [place], [address] Platelets (Bld) [#/Vol] 196 10*3/uL Normal 150-450 [facility] Comment on above: Performed By: #### L 100.0100, L500.4050 #### [facility] Laboratory [address] [place], [address] RBC (Bld) [#/Vol] 4.32 10*6/uL Normal 4.2-5.4 [facility] Comment on above: Performed By: #### L 100.0100, L500.4050 #### [facility] Laboratory [address] [place], [address] RDW SD 50.1 fl High 35.1-43.9 [facility] Comment on above: Performed By: #### L 100.0100, L500.4050 #### [facility] Laboratory [address] [place], [address] WBC (Bld) [#/Vol] 8.7 10*3/uL Normal 4.4-11.0 [facility] Comment on above: Performed By: #### L 100.0100, L500.4050 #### [facility] Laboratory [address] [place], [address] [facility] 02-05-2024 Albumin [Mass/Vol] 3.1 g/dL Low 3.2-5.0 [facility] Comment on above: Performed By: #### L 100.0100, L500.4050 #### [facility] Laboratory [address] [place], [address] Albumin/Globulin [Mass ratio] 1.0 {ratio} Normal 0.9-2.4 [facility] Comment on above: Performed By: #### L 100.0100, L500.4050 #### [facility] Laboratory [address] [place], [address] ALK P 126 U/L High 45-117 [facility] Comment on above: Performed By: #### L 100.0100, L500.4050 #### [facility] Laboratory [address] [place], [address] ALT [Catalytic activity/Vol] 28 U/L Normal 13-56 [facility] Comment on above: Performed By: #### L 100.0100, L500.4050 #### [facility] Laboratory [address] [place], [address] AST [Catalytic activity/Vol] 24 U/L Normal 15-37 [facility] Comment on above: Performed By: #### L 100.0100, L500.4050 #### [facility] Laboratory [address] [place], [address] Bilirubin [Mass/Vol] 0.60 mg/dL Normal 0.20-1.00 [facility] Comment on above: Result Comment: For patients on eltrombopag therapy, use of Dimension Dahlgren TBIL is not recommended. Performed By: #### L 100.0100, L500.4050 #### [facility] Laboratory [address] [place], [address] BUN/CRE 21.7 RATIO High 10-20 [facility] Comment on above: Performed By: #### L 100.0100, L500.4050 #### [facility] Laboratory [address] [place], [address] CA,Total 9.0 mg/dL Normal 8.5-10.1 [facility] Comment on above: Performed By: #### L 100.0100, L500.4050 #### [facility] Laboratory [address] [place], [address] Chloride [Moles/Vol] 106 mmol/L Normal 98-107 [facility] Comment on above: Performed By: #### L 100.0100, L500.4050 #### [facility] Laboratory [address] [place], [address] CO2 [Moles/Vol] 30.0 mmol/L Normal 21.0-32.0 [facility] Comment on above: Performed By: #### L 100.0100, L500.4050 #### [facility] Laboratory [address] [place], [address] Creatinine [Mass/Vol] 0.60 mg/dL Normal 0.55-1.02 [facility] Comment on above: Result Comment: The validity of the calculated GFR GFRAA in patients over 70 years has not been determined. Clinical correlation is essential. Performed By: #### L 100.0100, L500.4050 #### [facility] Laboratory [address] [place], [address] EST GFR - AA 123 mL/min Normal >60 [facility] Comment on above: Result Comment: Afri can Moldovan GFR Calc Performed By: #### L 100.0100, L500.4050 #### [facility] Laboratory [address] [place], [address] GAP 4 Low 5-15 [facility] Comment on above: Performed By: #### L 100.0100, L500.4050 #### [facility] Laboratory [address] [place], [address] GFR/1.73 sq M.predicted among non-blacks MDRD (S/P/Bld) [Vol rate/Area] 101 mL/min/{1.73_m2} Normal >60 [facility] Comment on above: Result Comment: Non- GFR Calc Performed By: #### L 100.0100, L500.4050 #### [facility] Laboratory [address] [place], [address] Globulin (S) [Mass/Vol] 3.1 g/dL Normal 2.2-4.2 [facility] Comment on above: Performed By: #### L 100.0100, L500.4050 #### [facility] Laboratory [address] [place], [address] Glucose [Mass/Vol] 96 mg/dL Normal 74-106 [facility] Comment on above: Performed By: #### L 100.0100, L500.4050 #### [facility] Laboratory [address] [place], [address] Potassium [Moles/Vol] 4.2 mmol/L Normal 3.5-5.1 [facility] Comment on above: Performed By: #### L 100.0100, L500.4050 #### [facility] Laboratory [address] [place], [address] Sodium [Moles/Vol] 139 mmol/L Normal 136-145 [facility] Comment on above: Performed By: #### L 100.0100, L500.4050 #### [facility] Laboratory [address] [place], [address] T PROT 6.2 g/dL Low 6.4-8.2 [facility] Comment on above: Performed By: #### L 100.0100, L500.4050 #### [facility] Laboratory [address] [place], [address] Urea nitrogen [Mass/Vol] 13 mg/dL Normal 7-18 [facility] Comment on above: Performed By: #### L 100.0100, L500.4050 #### [facility] Laboratory [address] [place], [address] CNOVon 01-25-2024 CNOV Office Visit (UCWSTR ) -- ANAYA WILSON ([id number]) 1940 [address] [employer] Date Time Provider Department 01/25/24 11:30 AM AMERICA MENDEZ UCWSTR During your visit today, we recorded the following information about you: Temperature Pulse Respiration Blood pressure 97.5 degrees 63/minute 18/minute 146/82 Weight 55 kg America Mendez APRN.BACKWINDER 01/25/2024 11:51 AM Signed This note was created using [employer]. Subjective Anaya Wilson is a 83 year [...] Discussed with patient that she could use lexz-exi-hubvxly numbing medication as needed for discomfort. I recommended that she does follow-up closely with either her PCP or dentist and return if symptoms seem to be worsening. America Mendez APRN.BACKWINDER Allergies As of Date: 01/25/2024 Noted Allergy [...] A WEEK FOR 2 WEEKS - fluocinolone-skin [id number] 0.01 % kit Apply to affected area [...] MS Does not take Naprosyn or Ibuprofen [facility] -May 27, 2019 Patient currently taking her [...] quadrant [ (more content not included)... Normal [facility] 01-23-2024 [facility] -- ANAYA WILSON ([id number]) 1940 [address] [employer] Date Time Provider Department 01/23/24 [facility] During your visit today, we recorded the following information about you: Elizabeth Perez RN 01/23/2024 4:14 PM Addendum Patient calling to let PCP know that she saw Dr. Gandhi @ [facility] today for psoriasis. Dr. Gandhi prescribed [...] A WEEK FOR 2 WEEKS - fluocinolone-skin [id number] 0.01 % kit Apply to affected area [...] MS Does not take Naprosyn or Ibuprofen [facility] -May 27, 2019 Patient currently taking her [...] Chronic rhiniti (more content not included)... Normal [facility] CNOVon 01-22-2024 CNOV Office Visit (FAMPWS ) -- ANAYA WILSON ([id number]) 1940 [employer] [employer]* Date Time Provider Department [...] ONCE A WEEK FOR 2 WEEKS fluocinolone-skin -ewpg 0.01 % kit Apply to affected area [...] Codeine Darvocet (more content not included)... Normal [facility] CNPNon 01-10-2024 [facility] ANAYA WILSON ([id number]) 1940 [address] [employer] Date Time Provider Department 01/10/24 [facility] During your visit today, we recorded [...] Date Reviewed: 01/09/2024 Reviewed by: Angeline Monterroso APRN.BACKWINDER - Fully Assessed Reason for Visit: Patient Question [0247] Prescriptions as of 01/15/2024 - amitriptyline (ELAVIL) 10 mg tablet Take 1 tablet by mouth daily at bedtime. - loratadine (CLARITIN) 10 mg tablet Take 1 tablet by mouth once daily. - methotrexate 2.5 mg tablet TAKE 5 TABLET(S) ORAL ONCE A WEEK START 4 TABS ONCE A WEEK FOR 2 WEEKS - fluocinolone-skin -xqmo 0.01 % kit Apply to affected area [...] MS Does not take Naprosyn or Ibuprofen [facility] 11-11May 27, 2019 Patient currently taking her [...] replacement usi (more content not included)... Normal [facility] CNCOon 01-09-2024 CNCO Letter Text Normal [facility] CNOVon 01-09-2024 CNOV Office Visit (FAMPWS ) -- ANAYA WILSON ([id number]) 1940 [address] [employer]* Date Time Provider Department 01/09/24 10:00 AM ANGELINE MONTERROSO During your visit today, we recorded the following information about you: Temperature Pulse Respiration Blood pressure 97 degrees 55/minute 16/minute 102/58 Weight 55.3 kg Angeline Monterroso APRN.BACKWINDER 01/13/2024 12:59 PM Signed Chief Complaint Patient presents with: Urinary Frequency Rash: R heel, warm to touch, red and swollen, saw [facility] and was prescribed Tapinarof cream, Derm took Cx- neg HPI Anaya Morrow Jaylyn is a 83 year old female who presents here today for Above Complaints.. Urinary frequency-was seen in [facility] on 01/02, did not get results of urinary culture back yet. States her urinary frequency isn't any worse than it typically is, especially when she drinks a lot of water. Denies other urinary sx. Right heel-saw [facility] last week, going back in a month. [...] ONCE A WEEK FOR 2 WEEKS fluocinolone-skin [id number]-jzux 0.01 % kit Apply to affected area [...] Take 1 (more content not included)... Normal [facility] Bacteria Ur Culton 4 Bacteria identified Cx Nom (U) ORGANISM ID: 1 10,000 -<50,000 CFU/ml Mixed microbiota Insignificant colony count. No further workup. Normal [facility] Comment on above: Performed By: #### 6 30-4 #### [facility] CLIA [id number] [address] [place] [address] [place] CBC W/Diff, Automatedon 11-0 -2023 Absolute Lymph 2.24 X10 3/uL Normal 0.83-4.51 [facility] Comment on above: Performed By: #### L 100.0100, L500.4050 #### [facility] Laboratory [address] [place], [address] Absolute Neut 5.2 X10 3/uL Normal 2.0-7.7 [facility] Comment on above: Performed By: #### L 100.0100, L500.4050 #### [facility] Laboratory [address] [place], [address] Basophils/100 WBC (Bld) 0.5 % Normal 0-1 [facility] Comment on above: Performed By: #### L 100.0100, L500.4050 #### [facility] Laboratory [address] [place], [address] Eosinophils/100 WBC (Bld) 2.0 % Normal 0-5 [facility] Comment on above: Performed By: #### L 100.0100, L500.4050 #### [facility] Laboratory [address] [place], [address] Erythrocyte distribution width (RBC) [Ratio] 14.0 % Normal 11.6-14.6 [facility] Comment on above: Performed By: #### L 100.0100, L500.4050 #### [facility] Laboratory [address] [place], [address] Hematocrit (Bld) [Volume fraction] 41.2 % Normal 37-47 [facility] Comment on above: Performed By: #### L 100.0100, L500.4050 #### [facility] Laboratory [address] [place], [address] Hemoglobin (Bld) [Mass/Vol] 13.0 g/dL Normal 12.0-15.0 [facility] Comment on above: Performed By: #### L 100.0100, L500.4050 #### [facility] Laboratory [address] [place], [address] IG% 0.800 Normal 0.0-0.9 [facility] Comment on above: Result Comment: IG% - Immature Granulocytes (promyelocytes, myelocytes and metamyelocytes) > 1% indicates that a LEFT SHIFT is Present. Performed By: #### L 100.0100, L500.4050 #### [facility] [address] [place], [address] Lymphocytes/100 WBC (Bld) 26.2 % Normal 19-41 [facility] Comment on above: Performed By: #### L 100.0100, L500.4050 #### [facility] [address] [place], [address] MCH (RBC) [Entitic mass] 29.7 pg Normal 27.0-32.0 [facility] Comment on above: Performed By: #### L 100.0100, L500.4050 #### [facility] [address] [place], [address] MCHC (RBC) [Mass/Vol] 31.6 g/dL Low 32-36 [facility] Comment on above: Performed By: #### L 100.0100, L500.4050 #### [facility] [address] [place], [address] MCV (RBC) [Entitic vol] 94.3 fL Normal 81-99 [facility] Comment on above: Performed By: #### L 100.0100, L500.4050 #### [facility] [address] [place], [address] Monocytes/100 WBC (Bld) 9.1 % Normal 0-10 [facility] Comment on above: Performed By: #### L 100.0100, L500.4050 #### [facility] [address] [place], [address] Neutrophils/100 WBC (Bld) 61.4 % Normal 47-70 [facility] Comment on above: Performed By: #### L 100.0100, L500.4050 #### [facility] [address] [place], [address] Nucleated RBC (Bld) [#/Vol] 0 10*3/uL Normal 0-5 [facility] Comment on above: Performed By: #### L 100.0100, L500.4050 #### [facility] [address] [place], [address] Platelet mean volume (Bld) [Entitic vol] 11.2 fL Normal 6.2-12.0 [facility] Comment on above: Performed By: #### L 100.0100, L500.4050 #### [facility] [address] [place], [address] Platelets (Bld) [#/Vol] 222 10*3/uL Normal 150-450 [facility] Comment on above: Performed By: #### L 100.0100, L500.4050 #### [facility] [address] [place], [address] RBC (Bld) [#/Vol] 4.37 10*6/uL Normal 4.2-5.4 [facility] Comment on above: Performed By: #### L 100.0100, L500.4050 #### [facility] [address] [place], [address] RDW SD 48.3 fl High 35.1-43.9 [facility] Comment on above: Performed By: #### L 100.0100, L500.4050 #### [facility] [address] [place], [address] WBC (Bld) [#/Vol] 8.5 10*3/uL Normal 4.4-11.0 [facility] Comment on above: Performed By: #### L 100.0100, L500.4050 #### [facility] [address] [place], [address] CNOVon 01-03-2024 CNOV Office Visit (UCWSTR ) -- ANAYA WILSON ([id number]) 1940 [employer] [employer] Date Time Provider Department 01/03/24 11:45 AM KATHRYN PEARSON UCWSTR During your visit today, we recorded the following information about you: Temperature Pulse Respiration Blood pressure 97.1 degrees 50/minute 18/minute 151/73 Weight 56.6 kg Kathryn Pearson APRN.CNP 01/03/2024 12:24 PM Signed This note was created using [employer]. Subjective Anaya Wilson is a 83 year [...] by the patient and the spouse. No humanities and languages professor was used. PAST MEDICAL HISTORY Diagnosis Date [...] ONCE A WEEK FOR 2 WEEKS fluocinolone-skin [id number] 0.01 % kit Apply to affected area [...] fatigue. Respirato (more content not included)... Normal [facility] Metabolic [facility] 01-03-2024 Albumin [Mass/Vol] 3.1 g/dL Low 3.2-5.0 [facility] Comment on above: Performed By: #### L 100.0100, L500.4050 #### [facility] [address] [place], [address] Albumin/Globulin [Mass ratio] 1.0 {ratio} Normal 0.9-2.4 [facility] Comment on above: Performed By: #### L 100.0100, L500.4050 #### [facility] [address] [place], [address] ALK P 115 U/L Normal 45-117 [facility] Comment on above: Performed By: #### L 100.0100, L500.4050 #### [facility] [address] [place], [address] ALT [Catalytic activity/Vol] 36 U/L Normal 13-56 [facility] Comment on above: Performed By: #### L 100.0100, L500.4050 #### [facility] [address] [place], [address] AST [Catalytic activity/Vol] 22 U/L Normal 15-37 [facility] Comment on above: Performed By: #### L 100.0100, L500.4050 #### [facility] [address] [place], [address] Bilirubin [Mass/Vol] 0.50 mg/dL Normal 0.20-1.00 [facility] Comment on above: Result Comment: For patients on eltrombopag therapy, use of Dimension Dahlgren TBIL is not recommended. Performed By: #### L 100.0100, L500.4050 #### [facility] [address] [place], [address] BUN/CRE 19.5 RATIO Normal 10-20 [facility] Comment on above: Performed By: #### L 100.0100, L500.4050 #### [facility] [address] [place], [address] CA,Total 9.1 mg/dL Normal 8.5-10.1 [facility] Comment on above: Performed By: #### L 100.0100, L500.4050 #### [facility] [address] [place], [address] Chloride [Moles/Vol] 105 mmol/L Normal 98-107 [facility] Comment on above: Performed By: #### L 100.0100, L500.4050 #### [facility] [address] [place], [address] CO2 [Moles/Vol] 30.0 mmol/L Normal 21.0-32.0 [facility] Comment on above: Performed By: #### L 100.0100, L500.4050 #### [facility] [address] [place], [address] Creatinine [Mass/Vol] 0.62 mg/dL Normal 0.55-1.02 [facility] Comment on above: Result Comment: The validity of the calculated GFR GFRAA in patients over 70 years has not been determined. Clinical correlation is essential. Performed By: #### L 100.0100, L500.4050 #### [facility] [address] [place], [address] EST GFR - AA 119 mL/min Normal >60 [facility] Comment on above: Result Comment: Afri can Moldovan GFR Calc Performed By: #### L 100.0100, L500.4050 #### [facility] [address] [place], [address] GAP 3 Low 5-15 [facility] Comment on above: Performed By: #### L 100.0100, L500.4050 #### [facility] [address] [place], [address] GFR/1.73 sq M.predicted among non-blacks MDRD (S/P/Bld) [Vol rate/Area] 98 mL/min/{1.73_m2} Normal >60 [facility] Comment on above: Result Comment: Non- GFR Calc Performed By: #### L 100.0100, L500.4050 #### [facility] [address] [place], [address] Globulin (S) [Mass/Vol] 3.1 g/dL Normal 2.2-4.2 [facility] Comment on above: Performed By: #### L 100.0100, L500.4050 #### [facility] Laboratory [address] [place], [address] Glucose [Mass/Vol] 98 mg/dL Normal 74-106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 [facility] Address: [address] [place] [address] Performed By: #### 5 7021-8 ####[facility]ORYCLIA [id number] [address] [place] Eosinophils/100 WBC (Bld) 0.5 % Normal [facility] Comment on above: Order Comment: Speci men Type: BLOOD SPECIMENOrdering Facility: [facility] Address: [address] [place] [address] Performed By: #### 5 7021-8 ####[facility]ORYCLIA [id number] [address] [place] Erythrocyte distribution width (RBC) [Ratio] 14.0 % Normal 11.5-15.0 [facility] Comment on above: Order Comment: Speci men Type: BLOOD SPECIMENOrdering Facility: [facility] Address: [address] [place] [address] Performed By: #### 5 7021-8 ####[facility]ORYCLIA [id number] [address] [place] Hematocrit (Bld) [Volume fraction] 42.2 % Normal 36.0-46.0 [facility] Comment on above: Order Comment: Speci men Type: BLOOD SPECIMENOrdering Facility: [facility] Address: [address] [place] [address] Performed By: #### 5 7021-8 ####[facility]ATORYCLIA [id number] [place] [address] [place] Hemoglobin (Bld) [Mass/Vol] 13.9 g/dL Normal 11.5-15.5 [facility] Comment on above: Order Comment: Speci men Type: BLOOD SPECIMENOrdering Facility: [facility] Address: [address] [place] [address] Performed By: #### 5 7021-8 ####[facility]ORYCLIA [id number] [place] [address] [place] Immature granulocytes (Bld) [#/Vol] 0.04 10*3/uL Normal <0.10 [facility] Comment on above: Order Comment: Speci men Type: BLOOD SPECIMENOrdering Facility: [facility] Address: [address] [place] [address] Performed By: #### 5 7021-8 ####[facility]ATORYCLIA [id number] [place] [address] [place] Immature granulocytes/100 WBC (Bld) 0.7 % Normal [facility] Comment on above: Order Comment: Speci men Type: BLOOD SPECIMENOrdering Facility: [facility] Address: [address] [place] [address] Performed By: #### 5 7021-8 ####[facility]ATORYCLIA [id number] [place] [address] [place] Lymphocytes (Bld) [#/Vol] 1.21 10*3/uL Normal 1.00-4.00 [facility] Comment on above: Order Comment: Speci men Type: BLOOD SPECIMENOrdering Facility: [facility] Address: [address] [place] [address] Performed By: #### 5 7021-8 ####[facility]ORATORYCLIA [id number] [place] [address] [place] Lymphocytes/100 WBC (Bld) 22.0 % Normal [facility] Comment on above: Order Comment: Speci men Type: BLOOD SPECIMENOrdering Facility: [facility] Address: [address] [place] [address] Performed By: #### 5 7021-8 ####[facility]ATORYCLIA [id number] [address] MCH (RBC) [Entitic mass] 30.3 pg Normal 26.0-34.0 [facility] Comment on above: Order Comment: Speci men Type: BLOOD SPECIMENOrdering Facility: [facility] Address: [address] [place] [address] Performed By: #### 5 7021-8 ####[facility]ORATORYCLIA [id number] [address] STATES [facility] MCHC (RBC) [Mass/Vol] 32.9 g/dL Normal 30.5-36.0 [facility] Comment on above: Order Comment: Speci men Type: BLOOD SPECIMENOrdering Facility: [facility] Address: [address] [place] [address] Performed By: #### 5 7021-8 ####[facility]ATORYCLIA [id number] [address] MCV (RBC) [Entitic vol] 92.1 fL Normal 80.0-100.0 [facility] Comment on above: Order Comment: Speci men Type: BLOOD SPECIMENOrdering Facility: [facility] Address: [address] [place] [address] Performed By: #### 5 7021-8 ####[facility]ATORYCLIA [id number] [address] Monocytes (Bld) [#/Vol] 0.49 10*3/uL Normal <0.87 [facility] Comment on above: Order Comment: Speci men Type: BLOOD SPECIMENOrdering Facility: [facility] Address: [address] [place] [address] Performed By: #### 5 7021-8 ####[facility]ATORYCLIA [id number] [address] Monocytes/100 WBC (Bld) 8.9 % Normal [facility] Comment on above: Order Comment: Speci men Type: BLOOD SPECIMENOrdering Facility: [facility] Address: [address] [place] [address] Performed By: #### 5 7021-8 ####[facility]ORATORYCLIA [id number] [place] [address] [place] Neutrophils (Bld) [#/Vol] 3.72 10*3/uL Normal 1.45-7.50 [facility] Comment on above: Order Comment: Speci men Type: BLOOD SPECIMENOrdering Facility: [facility] Address: [address] [place] [address] Performed By: #### 5 7021-8 ####[facility]ATORYCLIA [id number] [place] [address] [place] Neutrophils/100 WBC (Bld) 67.5 % Normal [facility] Comment on above: Order Comment: Speci men Type: BLOOD SPECIMENOrdering Facility: [facility] Address: [address] [place] [address] Performed By: #### 5 7021-8 ####[facility]ORATORYCLIA [id number] [place] [address] [place] Nucleated RBC (Bld) [#/Vol] 10*3/uL Normal <0.01 [facility] Comment on above: Order Comment: Speci men Type: BLOOD SPECIMENOrdering Facility: [facility] Address: [address] [place] [address] Performed By: #### 5 7021-8 ####[facility]ATORYCLIA [id number] [address] [place] Nucleated RBC/100 WBC (Bld) [Ratio] 0.0 /100 WBC Normal [facility] Comment on above: Order Comment: Speci men Type: BLOOD SPECIMENOrdering Facility: [facility] Address: [address] [place] [address] Performed By: #### 5 7021-8 ####[facility]ORATORYCLIA [id number] [place] [address] [place] Platelet mean volume (Bld) [Entitic vol] 9.9 fL Normal 9.0-12.7 [facility] Comment on above: Order Comment: Speci men Type: BLOOD SPECIMENOrdering Facility: [facility] Address: [address] [place] [address] Performed By: #### 5 7021-8 ####[facility]ATORYCLIA [id number] [address] [place] Platelets (Bld) [#/Vol] 251 10*3/uL Normal 150-400 [facility] Comment on above: Order Comment: Speci men Type: BLOOD SPECIMENOrdering Facility: [facility] Address: [address] [place] [address] Performed By: #### 5 7021-8 ####[facility]ORATORYCLIA [id number] [place] [address] [facility] [place] RBC (Bld) [#/Vol] 4.58 10*6/uL Normal 3.90-5.20 [facility] Comment on above: Order Comment: Speci men Type: BLOOD SPECIMENOrdering Facility: [facility] Address: [address] [place] [address] Performed By: #### 5 7021-8 ####[facility]ORATORYCLIA [id number] [address] [place] WBC (Bld) [#/Vol] 5.51 10*3/uL Normal 3.70-11.00 [facility] Comment on above: Order Comment: Speci men Type: BLOOD SPECIMENOrdering Facility: [facility] Address: [address] [place] [address] Performed By: #### 5 7021-8 ####[facility]ORATORYCLIA [id number] [place] [id number] [facility] CT ABD/PEL W IVCONon 024 CT ABD/PEL W IVCON * * *Final Report* * * DATE OF EXAM: Sep 23 2023 1:57PM [facility] [place] ABD/PEL W IVCON / [...] No enlarged lymph nodes. Urinary bladder: Unremarkable Outside Collector (topogram) images: No additional findings IMPRESSION: 1. 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 It appears to be similar in size to the previous MRI 2. No acute changes are seen 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Machine Operator: [facility] HOSPITALJeovanny Transcribe Date/Time: Sep 23 2023 2:25P Dictated by : RADHA ELIAS DO This examination was interpreted and the report reviewed and electronically signed by: RADHA ELIAS DO on Sep 23 2023 2:34PM EST [id number] [facility] CT BRAIN WO IVCONon 09-23-19 CT BRAIN WO IVCON * * *Final Report* * * DATE OF EXAM: Sep 23 2023 1:57PM [facility] [place] BRAIN WO IVCON / [...] intracranial hemorrhage or other acute intracranial abnormalities 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Machine Operator: [facility] Transcribe Date/Time: Sep 23 2023 2:02P Dictated by : RADHA ELIAS DO This examination was interpreted and the report reviewed and electronically signed by: RADHA ELIAS DO on Sep 23 2023 2:08PM EST [id number] Normal [facility] Comprehensive metabolic 2000 panelon 09-23-2023 Albumin [Mass/Vol] 4.0 g/dL Normal 3.9-4.9 [facility] Comment on above: Order Comment: Wellington zuniga Type: BLOOD SPECIMENOrdering Facility: [facility] Address: [address] [place] [address] Performed By: #### H STNT, 3040-3, 91060-2, 77312-5 ####[facility] LABORATORYCLIA [id number] [place] [address] [place] ALP [Catalytic activity/Vol] 119 U/L Normal 34-123 [facility] Comment on above: Order Comment: Wellington zuniga Type: BLOOD SPECIMENOrdering Facility: [facility] Address: [address] [place] [address] Performed By: #### H STNT, 3040-3, 07834-0, 06190-0 ####[facility]ORATORYCLIA [id number] [address] [place] [facility] ALT [Catalytic activity/Vol] 17 U/L Normal 7-38 [facility] Comment on above: Order Comment: Speci men Type: BLOOD SPECIMENOrdering Facility: [facility] Address: [address] [place] [address] Performed By: #### H STNT, 3040-3, 60254-0, 01164-3 ####[facility]ATORYCLIA [id number] [address] [place] Anion gap [Moles/Vol] 11 mmol/L Normal 8-15 [facility] Comment on above: Order Comment: Speci men Type: BLOOD SPECIMENOrdering Facility: [facility] Address: [address] [place] [address] Performed By: #### H STNT, 3040-3, 39373-0, 63651-8 ####[facility]ORATORYCLIA [id number] [address] [facility] AST [Catalytic activity/Vol] 24 U/L Normal 13-35 [facility] Comment on above: Order Comment: Speci men Type: BLOOD SPECIMENOrdering Facility: [facility] Address: [address] [place] [address] Performed By: #### H STNT, 3040-3, 57502-8, 03062-0 ####[facility]ORATORYCLIA [id number] [place] [id number] [place] Bilirubin [Mass/Vol] 0.5 mg/dL Normal 0.2-1.3 [facility] Comment on above: Order Comment: Speci men Type: BLOOD SPECIMENOrdering Facility: [facility] Address: [address] [place] [address] Performed By: #### H STNT, 3040-3, 64864-6, 82303-7 ####[facility]ATORYCLIA [id number] [place] [address] [place] Calcium [Mass/Vol] 9.2 mg/dL Normal 8.5-10.2 [facility] Comment on above: Order Comment: Speci men Type: BLOOD SPECIMENOrdering Facility: [facility] Address: [address] [place] [address] Performed By: #### H STNT, 3040-3, 94566-1, 45282-9 ####[facility]ATORYCLIA [id number] [place] [address] [place] Chloride [Moles/Vol] 96 mmol/L Low 98-107 [facility] Comment on above: Order Comment: Speci men Type: BLOOD SPECIMENOrdering Facility: [facility] Address: [address] [place] [address] Performed By: #### H STNT, 3040-3, 30879-1, 79052-7 ####[facility]ORATORYCLIA [id number] [place] [address] [place] CO2 [Moles/Vol] 26 mmol/L Normal 22-30 [facility] Comment on above: Order Comment: Speci men Type: BLOOD SPECIMENOrdering Facility: [facility] Address: [address] [place] [address] Performed By: #### H STNT, 3040-3, , 09844-9 ####[facility]ATORYCLIA [id number] [place] [address] [place] Creatinine [Mass/Vol] 0.60 mg/dL Normal 0.58-0.96 [facility] Comment on above: Order Comment: Speci men Type: BLOOD SPECIMENOrdering Facility: [facility] Address: [address] [place] [address] Performed By: #### H STNT, 3040-3, , 22457-4 ####[facility]ORATORYCLIA [id number] [address] Creatinine and Glomerular filtration rate.predicted panel (S/P/Bld) 89 mL/min/1.73m??? Normal >=60 [facility] Comment on above: Order Comment: Speci men Type: BLOOD SPECIMENOrdering Facility: [facility] Address: [address] [place] [id number] Result Comment: Julianna mated Glomerular Filtration Rate [...] GFR. Performed By: #### H STNT, 0-3, 65186-9, 86077-9 ####[facility]ORATORYCLIA [id number] [place] [address] [place] Glucose [Mass/Vol] 101 mg/dL High 74-99 [facility] Comment on above: Order Comment: Wellington zuniga Type: BLOOD SPECIMENOrdering Facility: [facility] Address: [address] [place] [address] Result Comment: The [place] Diabetes Association (ADA) provides guidance for cutoff [...] Standards of Medical Care in Diabetes 2016, [place] [employer]. Diabetes Care. 2016.39(Suppl 1). Performed By: #### H STNT, 3040-3, 49010-0, 38816-1 ####[facility]ORATORYCLIA [id number] [place] [address] [place] Potassium [Moles/Vol] 3.7 mmol/L Normal 3.7-5.1 [facility] Comment on above: Order Comment: [facility] Type: BLOOD SPECIMENOrdering Facility: [facility] Address: [address] [place] [id number] Performed By: #### H STNT, 0-3, 81718-5, 06158-6 ####[facility]ORATORYCLIA [id number] [address] [place] Protein [Mass/Vol] 6.7 g/dL Normal 6.3-8.0 [facility] Comment on above: Order Comment: Speci men Type: BLOOD SPECIMENOrdering Facility: [facility] Address: [address] [place] [address] Performed By: #### H STNT, 3040-3, 90313-4, 79744-3 ####[facility]ORATORYCLIA [id number] [place] [address] [place] Sodium [Moles/Vol] 133 mmol/L Low 136-144 [facility] Comment on above: Order Comment: Speci men Type: BLOOD SPECIMENOrdering Facility: [facility] Address: [address] [place] [address] Performed By: #### H STNT, 3040-3, 24163-6, 88294-0 ####[facility]ORATORYCLIA [id number] [address] [place] Urea nitrogen [Mass/Vol] 12 mg/dL Normal 7-21 [facility] Comment on above: Order Comment: Speci men Type: BLOOD SPECIMENOrdering Facility: [facility] Address: [address] [place] [address] Performed By: #### H STNT, 3040-3, 06545-2, 37729-4 ####[facility]ORATORYCLIA [id number] [place] [id number] [place] ED NOTEon 09-23-2023 ED NOTE HNO ID: [id number] Author: CARLOS PAUL RN Service: ? Author Type: Registered Nurse Type: ED Notes Filed: 09/23/2023 15:32 Note Text: Discharge instructions d/w pt and at bedside. Stated understanding with no further questions for this nurse. Encouraged f/u with PCP and referring doctors given. Stated understanding. Prescription(S) were given X2. Normal [facility] ED PROV NOTEon 09-23-2023 ED PROV NOTE HNO ID: [id number] Author: MAXIMO PEÑA DO Service: Emergency Medicine [...] PAGER/CONTACT #: MAXIMO PEÑA I 09/23/23 1511 [facility] ED PROV NOTE HNO ID: [id number] Author: NEAL WARE MD Service: Emergency Medicine [...] well-developed. H (more content not included)... Normal [facility] FLUABV+SARS-CoV-2+RSV Pnl Re sp PRABHA+probeon 09-23-2023 FLUABV+SARS-CoV-2+RSV Pnl Resp PRABHA+probe COVID 19 RESULT: Not detected The method used is RT-PCR or an equivalent NAAT method. Reference Range(the expected result in uninfected individuals): Not detected INFLUENZA A PCR: Not detected INFLUENZA B PCR: Not detected RSV PCR: Not detected Normal [facility] Comment on above: Performed By: #### 9 5941-1 ####[facility] LABORATORYCLIA [id number] [place] [address] [place] HIGH SENSITIVITY TROPONIN To n 09-23-2023 Troponin T.cardiac High sensitivity method [Mass/Vol] 11 ng/L Normal <12 [facility] Comment on above: Order Comment: Speci men Type: BLOOD SPECIMENOrdering Facility: [facility] Address: [address] [place] [address] Performed By: #### H STNT, 3040-3, 64795-6, 42264-6 ####[facility]ORATORYCLIA [id number] [place] [address] [place] Lipase SerPl-cCncon 09-23-19 24 Lipase [Catalytic activity/Vol] 85 U/L High 16-61 [facility] Comment on above: Order Comment: Speci men Type: BLOOD SPECIMENOrdering Facility: [facility] Address: [address] [place] [address] Performed By: #### H STNT, 3040-3, 39855-4, ####[facility] LABORATORYCLIA [id number] [address] [place] Magnesium SerPl-mCncon 09-22 Magnesium [Mass/Vol] 2.0 mg/dL Normal 1.7-2.3 [facility] Comment on above: Order Comment: Speci men Type: BLOOD SPECIMENOrdering Facility: [facility] Address: [address] [place] [address] Performed By: #### H STNT, 3040-3, 63179-7, ####[facility] LABORATORYCLIA [id number] [address] [place] Urinalysis complete panel (U )on 09-23-2023 Bilirubin Ql (U) Negative Normal Negative [facility] Comment on above: Order Comment: Speci men Type: URINE SPECIMENOrdering Facility: [facility] Address: [address] [place] [address] Performed By: #### 2 4356-8 ####[facility] LABORATORYCLIA [id number] [address] [place] Clarity (Unsp spec) Clear Normal Clear [facility] Comment on above: Order Comment: Speci men Type: URINE SPECIMENOrdering Facility: [facility] Address: [address] [place] [address] Performed By: #### 2 4356-8 ####[facility] LABORATORYCLIA [id number] [place] [address] [place] Color (U) Yellow Normal Yellow [facility] Comment on above: Order Comment: Speci men Type: URINE SPECIMENOrdering Facility: [facility] Address: [address] [place] [address] Performed By: #### 2 4356-8 ####[facility] LABORATORYCLIA [id number] [place] [address] [place] Glucose Test strip (U) [Mass/Vol] Negative Normal Negative [facility] Comment on above: Order Comment: Speci men Type: URINE SPECIMENOrdering Facility: [facility] Address: [address] [place] [address] Performed By: #### 2 4356-8 ####[facility] LABORATORYCLIA [id number] [place] [address] [place] Hemoglobin Ql (U) Negative Normal Negative [facility] Comment on above: Order Comment: Speci men Type: URINE SPECIMENOrdering Facility: [facility] Address: [address] [place] [address] Performed By: #### 2 4356-8 ####[facility] LABORATORYCLIA [id number] [place] [address] [place] Ketones Ql (U) Negative Normal Negative [facility] Comment on above: Order Comment: Speci men Type: URINE SPECIMENOrdering Facility: [facility] Address: [address] [place] [address] Performed By: #### 2 4356-8 ####[facility] LABORATORYCLIA [id number] [place] [address] [place] Leukocyte esterase Test strip Ql (U) Negative Normal Negative [facility] Comment on above: Order Comment: Speci men Type: URINE SPECIMENOrdering Facility: [facility] Address: [address] [place] [address] Performed By: #### 2 4356-8 ####[facility] LABORATORYCLIA [id number] [place] [address] [place] Nitrite Ql (U) Negative Normal Negative [facility] Comment on above: Order Comment: Speci men Type: URINE SPECIMENOrdering Facility: [facility] Address: [address] [place] [address] Performed By: #### 2 4356-8 ####[facility] LABORATORYCLIA [id number] [address] pH (U) 7.0 [pH] Normal 5.0-8.0 [facility] Comment on above: Order Comment: Speci men Type: URINE SPECIMENOrdering Facility: [facility] Address: [address] [place] [address] Performed By: #### 2 4356-8 ####[facility] LABORATORYCLIA [id number] [address] [place] Protein (U) [Mass/Vol] Negative Normal Negative [facility] Comment on above: Order Comment: Speci men Type: URINE SPECIMENOrdering Facility: [facility] Address: [address] [place] [address] Performed By: #### 2 4356-8 ####[facility] LABORATORYCLIA [id number] [place] [address] [place] RBC LM.HPF (Urine sed) [#/Area] 0-3 /HPF Normal 0-3 /HPF [facility] Comment on above: Order Comment: Speci men Type: URINE SPECIMENOrdering Facility: [facility] Address: [address] [place] [address] Performed By: #### 2 4356-8 ####[facility] LABORATORYCLIA [id number] [address] [place] Specific gravity (U) [Rel density] <=1.005 Low 1.005-1.030 [facility] Comment on above: Order Comment: Speci men Type: URINE SPECIMENOrdering Facility: [facility] Address: [address] [place] [address] Performed By: #### 2 4356-8 ####[facility] LABORATORYCLIA [id number] [address] Urobilinogen Ql (U) 0.2 EU/dL Normal 0.2-1.0 EU/dL [facility] Comment on above: Order Comment: Speci men Type: URINE SPECIMENOrdering Facility: [facility] Address: [address] [id number] Performed By: #### 2 4356-8 ####[facility] LABORATORYCLIA [id number] [address] [place] WBC LM.HPF (Urine sed) [#/Area] 0-5 /HPF Normal 0-5 /HPF [facility] Comment on above: Order Comment: Speci men Type: URINE SPECIMENOrdering Facility: [facility] Address: [address] [id number] Performed By: #### 2 4356-8 ####[facility] LABORATORYCLIA [id number] [address] [place] XR CHEST 1V [...] as discussed under Results portion of report. 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Machine Operator: JAIME Transcribe Date/Time: Sep 23 2023 2:08P Dictated by : RADHA ELIAS DO This examination was interpreted and the report reviewed and electronically signed by: RADHA ELIAS DO on Sep 23 2023 2:10PM EST [id number] Normal [facility] CNOVon 09-18-2023 CNOV Office Visit (FAMPWS ) -- ANAYA WILSON ([id number]) 1940 [address] Date Time Provider [...] Pro* In (more content not included)... Normal [facility] CBC W/Diff, Automatedon 08-02 Absolute Lymph 2.48 X10 3/uL Normal 0.83-4.51 [facility] Comment on above: Performed By: #### L 500.4050, L100.0100 #### [facility] Laboratory [address] [place], [address] Absolute Neut 2.3 X10 3/uL Normal 2.0-7.7 [facility] Comment on above: Performed By: #### L 500.4050, L100.0100 #### [facility] Laboratory [address] [place], [address] Basophils/100 WBC (Bld) 0.5 % Normal 0-1 [facility] Comment on above: Performed By: #### L 500.4050, L100.0100 #### [facility] Laboratory [address] [place], [address] Eosinophils/100 WBC (Bld) 3.4 % Normal 0-5 [facility] Comment on above: Performed By: #### L 500.4050, L100.0100 #### [facility] Laboratory [address] [place], [address] Erythrocyte distribution width (RBC) [Ratio] 13.9 % Normal 11.6-14.6 [facility] Comment on above: Performed By: #### L 500.4050, L100.0100 #### [facility] Laboratory [address] [place], [address] Hematocrit (Bld) [Volume fraction] 40.2 % Normal 37-47 [facility] Comment on above: Performed By: #### L 500.4050, L100.0100 #### [facility] Laboratory [address] [place], [address] Hemoglobin (Bld) [Mass/Vol] 12.6 g/dL Normal 12.0-15.0 [facility] Comment on above: Performed By: #### L 500.4050, L100.0100 #### [facility] Laboratory [address] [place], [address] IG% 0.300 Normal 0.0-0.9 [facility] Comment on above: Result Comment: IG% - Immature Granulocytes (promyelocytes, myelocytes and metamyelocytes) > 1% indicates that a LEFT SHIFT is Present. Performed By: #### L 500.4050, L100.0100 #### [facility] Laboratory [address] [place], [address] Lymphocytes/100 WBC (Bld) 42.8 % High 19-41 [facility] Comment on above: Performed By: #### L 500.4050, L100.0100 #### [facility] Laboratory [address] [place], [address] MCH (RBC) [Entitic mass] 30.2 pg Normal 27.0-32.0 [facility] Comment on above: Performed By: #### L 500.4050, L100.0100 #### [facility] Laboratory [address] [place], [address] MCHC (RBC) [Mass/Vol] 31.3 g/dL Low 32-36 [facility] Comment on above: Performed By: #### L 500.4050, L100.0100 #### [facility] Laboratory [address] [place], [address] MCV (RBC) [Entitic vol] 96.4 fL Normal 81-99 [facility] Comment on above: Performed By: #### L 500.4050, L100.0100 #### [facility] Laboratory [address] [place], [address] Monocytes/100 WBC (Bld) 12.9 % High 0-10 [facility] Comment on above: Performed By: #### L 500.4050, L100.0100 #### [facility] Laboratory [address] [place], [address] Neutrophils/100 WBC (Bld) 40.1 % Low 47-70 [facility] Comment on above: Performed By: #### L 500.4050, L100.0100 #### [facility] Laboratory [address] [place], [address] Nucleated RBC (Bld) [#/Vol] 0 10*3/uL Normal 0-5 [facility] Comment on above: Performed By: #### L 500.4050, L100.0100 #### [facility] Laboratory [address] [place], [address] Platelet mean volume (Bld) [Entitic vol] 11.3 fL Normal 6.2-12.0 [facility] Comment on above: Performed By: #### L 500.4050, L100.0100 #### [facility] Laboratory [address] [place], [address] Platelets (Bld) [#/Vol] 197 10*3/uL Normal 150-450 [facility] Comment on above: Performed By: #### L 500.4050, L100.0100 #### [facility] Laboratory [address] [place], [address] RBC (Bld) [#/Vol] 4.17 10*6/uL Low 4.2-5.4 [facility] Comment on above: Performed By: #### L 500.4050, L100.0100 #### [facility] Laboratory [address] [place], [address] RDW SD 48.4 fl High 35.1-43.9 [facility] Comment on above: Performed By: #### L 500.4050, L100.0100 #### [facility] Laboratory [address] [place], [address] WBC (Bld) [#/Vol] 5.8 10*3/uL Normal 4.4-11.0 [facility] Comment on above: Performed By: #### L 500.4050, L100.0100 #### [facility] Laboratory [address] [place], [address] Comprehensive Metabolic Prof il 08-19-2023 Albumin [Mass/Vol] 3.2 g/dL Normal 3.2-5.0 [facility] Comment on above: Performed By: #### L 500.4050, L100.0100 #### [facility] [address] [place], [address] Albumin/Globulin [Mass ratio] 1.0 {ratio} Normal 0.9-2.4 [facility] Comment on above: Performed By: #### L 500.4050, L100.0100 #### [facility] Laboratory [address] [place], [address] ALK P 111 U/L Normal 45-117 [facility] Comment on above: Performed By: #### L 500.4050, L100.0100 #### [facility] Laboratory [address] [place], [address] ALT [Catalytic activity/Vol] 27 U/L Normal 13-56 [facility] Comment on above: Performed By: #### L 500.4050, L100.0100 #### [facility] Laboratory [address] [place], [address] AST [Catalytic activity/Vol] 25 U/L Normal 15-37 [facility] Comment on above: Performed By: #### L 500.4050, L100.0100 #### [facility] Laboratory [address] [place], [address] Bilirubin [Mass/Vol] 0.30 mg/dL Normal 0.20-1.00 [facility] Comment on above: Result Comment: For patients on eltrombopag therapy, use of Dimension Dahlgren TBIL is not recommended. Performed By: #### L 500.4050, L100.0100 #### [facility] Laboratory [address] [place], [address] BUN/CRE 27.4 RATIO High 10-20 [facility] Comment on above: Performed By: #### L 500.4050, L100.0100 #### [facility] Laboratory [address] [place], [address] CA,Total 9.5 mg/dL Normal 8.5-10.1 [facility] Comment on above: Performed By: #### L 500.4050, L100.0100 #### [facility] Laboratory [address] [place], [address] Chloride [Moles/Vol] 105 mmol/L Normal 98-107 [facility] Comment on above: Performed By: #### L 500.4050, L100.0100 #### [facility] Laboratory [address] [place], [address] CO2 [Moles/Vol] 29.0 mmol/L Normal 21.0-32.0 [facility] Comment on above: Performed By: #### L 500.4050, L100.0100 #### [facility] Laboratory [address] [place], [address] Creatinine [Mass/Vol] 0.73 mg/dL Normal 0.55-1.02 [facility] Comment on above: Result Comment: The validity of the calculated GFR GFRAA in patients over 70 years has not been determined. Clinical correlation is essential. Performed By: #### L 500.4050, L100.0100 #### [facility] Laboratory [address] [place], [address] EST GFR - AA 98 mL/min Normal >60 [facility] Comment on above: Result Comment: Afri can Moldovan GFR Calc Performed By: #### L 500.4050, L100.0100 #### [facility] Laboratory [address] [place], [address] GAP 5 Normal 5-15 [facility] Comment on above: Performed By: #### L 500.4050, L100.0100 #### [facility] Laboratory [address] [place], [address] GFR/1.73 sq M.predicted among non-blacks MDRD (S/P/Bld) [Vol rate/Area] 81 mL/min/{1.73_m2} Normal >60 [facility] Comment on above: Result Comment: Non- GFR Calc Performed By: #### L 500.4050, L100.0100 #### [facility] Laboratory [address] [place], [address] Globulin (S) [Mass/Vol] 3.3 g/dL Normal 2.2-4.2 [facility] Comment on above: Performed By: #### L 500.4050, L100.0100 #### [facility] Laboratory [address] [place], [address] Glucose [Mass/Vol] 103 mg/dL Normal 74-106 [facility] Comment on above: Result Comment: Fast ing Glucose result from 100 to 125 mg/dL suggests IMPAIRED HOMEOSTASIS per A.D.A. criteria. Performed By: #### L 500.4050, L100.0100 #### [facility] Laboratory [address] [place], [address] Potassium [Moles/Vol] 4.4 mmol/L Normal 3.5-5.1 [facility] Comment on above: Performed By: #### L 500.4050, L100.0100 #### [facility] Laboratory [address] [place], [address] Sodium [Moles/Vol] 139 mmol/L Normal 136-145 [facility] Comment on above: Performed By: #### L 500.4050, L100.0100 #### [facility] Laboratory [address] [place], [address] T PROT 6.5 g/dL Normal 6.4-8.2 [facility] Comment on above: Performed By: #### L 500.4050, L100.0100 #### [facility] Laboratory [address] [place], [address] Urea nitrogen [Mass/Vol] 20 mg/dL High 7-18 [facility] Comment on above: Performed By: #### L 500.4050, L100.0100 #### [facility] Laboratory [address] [place], [address] UA DIP, URINE (POC)on 2023 BILIRUBIN UA (POCT) Negative Negative [facility] CLARITY UA (POCT) [facility] COLOR UA (POCT) Other [facility] GLUCOSE UA (POCT) Negative Negative mg/dL [facility] Hemoglobin Ql (U) Trace-intact Abnormal Negative [facility] Interpretation and review of laboratory results Abnormal [facility] KETONE UA (POCT) Negative Negative mg/dL [facility] LEUKOCYTES UA (POCT) Trace Abnormal Negative [facility] NITRITE UA (POCT) Negative Negative [facility] PH UA (POCT) 7.5 4.5 - 8.0 [facility] Protein Ql (U) Negative Negative mg/dL [facility] SPECIFIC GRAVITY UA (POCT) 1.015 1.005 - 1.030 [facility] UROBILINOGEN UA (POCT) 0.2 Normal E.U./dL [facility] Location:[address], [place], [place], [id number] [place] [address] POINT OF CARE [facility] UA DIP, URINE (POC)on 2023 BILIRUBIN UA (POCT) Negative Negative [facility] CLARITY UA (POCT) [facility] COLOR UA (POCT) Yellow [facility] GLUCOSE UA (POCT) Negative Negative mg/dL [facility] Hemoglobin Ql (U) Negative Negative [facility] Interpretation and review of laboratory results Abnormal [facility] KETONE UA (POCT) Negative Negative mg/dL [facility] LEUKOCYTES UA (POCT) Small Abnormal Negative [facility] NITRITE UA (POCT) Negative Negative [facility] PH UA (POCT) 6.0 4.5 - 8.0 [facility] Protein Ql (U) Negative Negative mg/dL [facility] SPECIFIC GRAVITY UA (POCT) 1.010 1.005 - 1.030 [facility] UROBILINOGEN UA (POCT) 0.2 Normal E.U./dL [facility] Location:[address], [place], [place], [address] [place] [address] POINT OF CARE [facility] COVID & INFLUENZA A/B & RSV NAAT, ROUTINEon 06-28-2023 FLUAV RNA PRABHA+probe Ql (Unsp spec) Not detected Not Detected [facility] FLUBV RNA PRABHA+probe Ql (Unsp spec) Not detected Not Detected [facility] Interpretation and review of laboratory results Normal [facility] RSV A RNA PRABHA+probe Ql (Unsp spec) Not detected Not Detected [facility] SARS-CoV-2 (COVID-19) RNA PRABHA+probe Ql (Resp) Not detected See comment [facility] Comment on above: The method used is R T-PCR or an equivalent NAAT method. Reference Range (the expected result in uninfected individuals): Not detected For upper respirator y tract samples, this test has been authorized by FDA under Emergenecy Use Authorization (EUA). For lower respiratory tract samples, this test was developed and its performance characteristics determined by [facility]'s Michael Moreno [facility] It has not been cleared or approved by the FDA. [facility] is regulated under CLIA as qualified to perform high-complexity testing. This test is used for clinical purposes. It should not be regarded as investigational or for research. Test performed by [facility], Michael Moreno [facility] Pathology and Laboratory Medicine [place], [address] [id number]. [facility] XR Chest PA and Lateralon IMPRESSION: No acute radiographic abnormality. 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Machine Operator: PSCB Transcribe Date/Time: Jun 28 2023 4:08P Dictated by : LIDIA AGUILRA MD This examination was interpreted and the report reviewed and electronically signed by: LIDIA AGUILAR MD on Jun 28 2023 4:09PM [facility] DIVISION OF RADIOLOGY * * *Final Report* [...] Unremarkable. IMPRESSION IMPRESSION: No acute radiographic abnormality. 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Machine Operator: JAIME Transcribe Date/Time: Jun 28 2023 4:08P Dictated by : LIDIA AGUILAR MD This examination was interpreted and the report reviewed and electronically signed by: LIDIA AGUILAR MD on Jun 28 2023 4:09PM EST [facility] XR Chest PA and LateralOrder ed By: Ccf Provider on 06-28-2023 [facility] XR Chest PA and Lateralon Radiology Study observation (narrative) [facility] Absolute lymphocyte countOrd ered By: Dina Olea on 05-27-2023 Lymphocytes Auto (Unsp spec) [#/Vol] 2.45 10*3/uL 0.83-4.51 [facility] Automated lymphocyte count a s percentage of total leukocytesOrdered By: Dina Olea on 05-27-2023 Lymphocytes/100 WBC Auto (Unsp spec) 38.5 % 19-41 [facility] Basophil percentageOrdered B y: Dina Olea on 05-27-2023 Basophils/100 WBC (Bld) 0.6 % 0-1 [facility] Bilirubin [Mass/Vol] 0.30 mg/dL 0.20-1.00 [facility] Comment on above: For patients on eltr ombopag therapy, use of Dimension Dahlgren TBIL is not recommended. Chloride [Moles/Vol] 106 mmol/L 98-107 [facility] Eosinophils/100 WBC (Bld) 5.0 % 0-5 [facility] Glucose [Mass/Vol] 96 mg/dL 74-106 [facility] Hemoglobin (Bld) [Mass/Vol] 13.0 g/dL 12.0-15.0 [facility] Monocytes/100 WBC (Bld) 12.6 % 0-10 [facility] Neutrophils (Bld) [#/Vol] 2.7 10*3/uL 2.0-7.7 [facility] Neutrophils/100 WBC (Bld) 42.8 % 47-70 [facility] Potassium [Moles/Vol] 4.7 mmol/L 3.5-5.1 [facility] Protein [Mass/Vol] 6.4 g/dL 6.4-8.2 [facility] Sodium [Moles/Vol] 138 mmol/L 136-145 [facility] WBC (Bld) [#/Vol] 6.4 10*3/uL 4.4-11.0 [facility] Determination of erythrocyte mean corpuscular volume (MCV)Ordered By: Dina Olea on 05-27-2023 MCV (RBC) [Entitic vol] 94.7 fL 81-99 [facility] Erythrocyte distribution wid th ratioOrdered By: [facility] Lefty on 05-27-2023 Erythrocyte distribution width (RBC) [Ratio] 13.6 % 11.6-14.6 [facility] Erythrocyte distribution wid th standard deviationOrdered By: [facility] L[facility]ty on 05-27-2023 Erythrocyte distribution width (RBC) [Entitic vol] 46.5 fL 35.1-43.9 [facility] Hematocrit Auto (Bld) [Volum e fraction]Ordered By: Dina Olea on 05-27-2023 Hematocrit (Bld) [Volume fraction] 41.3 % 37-47 [facility] Immature granulocytes/100 WB C Auto (Bld)Ordered By: Dinacarlos manuel Olea on 05-27-2023 Immature granulocytes/100 WBC (Bld) 0.500 % 0.0-0.9 [facility] Comment on above: IG% - Immature Granu locytes (promyelocytes, myelocytes and metamyelocytes) > 1% indicates that a LEFT SHIFT is Present. Laboratory - Chemistry and C hemistry - challengeOrdered By: Dina Olea on 05-27-2023 Albumin/Globulin [Mass ratio] 1.0 {ratio} 0.9-2.4 [facility] ALP [Catalytic activity/Vol] 105 U/L 45-117 [facility] ALT [Catalytic activity/Vol] 33 U/L 13-56 [facility] CO2 [Moles/Vol] 28.0 mmol/L 21.0-32.0 [facility] Globulin (S) [Mass/Vol] 3.2 g/dL 2.2-4.2 [facility] Urea nitrogen/Creatinine [Mass ratio] 27.7 mg/mg 10-20 [facility] Laboratory - Hematology and Cell countsOrdered By: Dina Olea on 05-27-2023 MCH (RBC) [Entitic mass] 29.8 pg 27.0-32.0 [facility] MCHC (RBC) [Mass/Vol] 31.5 g/dL 32-36 [facility] [place] Nucleated RBC/100 WBC (Bld) [Ratio] 0 % 0-5 [facility] Platelet mean volume (Bld) [Entitic vol] 11.5 fL 6.2-12.0 [facility] Platelets (Bld) [#/Vol] 240 10*3/uL 150-450 [facility] No Panel InformationOrdered By: Dina Olea on 05-27-2023 Estimated GFR (MDRD) Amer 105 mL/min >60 [facility] Comment on above: GFR Calc Estimated GFR (MDRD) Non-Af Amer 87 mL/min >60 [facility] Comment on above: Non- GFR Calc RBC Auto (Bld) [#/Vol]Ordere d By: Dina Olea on 05-27-2023 RBC (Bld) [#/Vol] 4.36 10*6/uL 4.2-5.4 [facility] Serum or plasma calcium enmanuel urement (mass/volume)Ordered By: Dina Olea on 05-27-2023 Calcium [Mass/Vol] 8.9 mg/dL 8.5-10.1 [facility] Serum or plasma creatinine m easurement (mass/volume)Ordered By: Dina Olea on 05-27-2023 Creatinine [Mass/Vol] 0.69 mg/dL 0.55-1.02 [facility] [place] Comment on above: The validity of the calculated GFR & GFRAA in patients over 70 years has not been determined. Clinical correlation is essential. Serum or plasma urea nitroge n measurement (mass/volume)Ordered By: Dina Olea on 05-27-2023 Urea nitrogen [Mass/Vol] 19 mg/dL 7-18 [facility] Thin prep Papanicolaou smear with manual screeningOrdered By: Dina Olea on 05-27-2023 Thin prep Papanicolaou smear with manual screening 3.2 g/dL 3.2-5.0 [facility] Thin prep Papanicolaou smear with manual screening 28 U/L 15-37 [facility] Thin prep Papanicolaou smear with manual screening 4 5-15 [facility] MRI 3D POST PROCESSINGon MRI 3D POST PROCESSING * * *Final Report* * * DATE OF EXAM: May 22 2023 6:14PM [facility] 0280 - MRI 3D POST PROCESSING [...] sidebranch IPMN or an oligocystic serous adenoma. 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 Operator: JAIME Transcribe Date/Time: May 24 2023 11:23A Dictated by : MYNOR VILLANUEVA MD This examination was interpreted and the report reviewed and electronically signed by: MYNOR VILLANUEVA MD on May 24 2023 11:36AM EST [id number] Normal [facility] No Panel Informationon 05-07 [facility] US ABD RIGHT UPPER QUADRANTo n [...] in the right upper quadrant. No splenomegaly. 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 Operator: [employer] Transcribe Date/Time: May 08 2023 2:24P Dictated by : PAULA CONTRERAS MD This examination was interpreted and the report reviewed and electronically signed by: PAULA CONTRERAS MD on May 08 2023 2:27PM EST [id number] Normal [facility] US ABD SPLEEN -NBon 05-08-19 US [...] in the right upper quadrant. No splenomegaly. 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 Operator: PSCB Transcribe Date/Time: May 08 2023 2:24P Dictated by : PAULA CONTRERAS MD This examination was interpreted and the report reviewed and electronically signed by: APULA CONTRERAS MD on May 08 2023 2:27PM EST [id number] Normal [facility] Absolute lymphocyte countOrd ered By: Dina Olea on 03-11-2023 Lymphocytes Auto (Unsp spec) [#/Vol] 2.16 10*3/uL 0.83-4.51 [facility] Basophil percentageOrdered B y: Dina Olea on 03-11-2023 Basophils/100 WBC (Bld) 0.3 % 0-1 [facility] Bilirubin [Mass/Vol] 0.40 mg/dL 0.20-1.00 [facility] Comment on above: For patients on eltr ombopag therapy, use of Dimension Dahlgren TBIL is not recommended. Chloride [Moles/Vol] 106 mmol/L 98-107 [facility] Eosinophils/100 WBC (Bld) 3.0 % 0-5 [facility] Glucose [Mass/Vol] 97 mg/dL 74-106 [facility] Neutrophils (Bld) [#/Vol] 3.5 10*3/uL 2.0-7.7 [facility] Neutrophils/100 WBC (Bld) 51.5 % 47-70 [facility] Potassium [Moles/Vol] 3.9 mmol/L 3.5-5.1 [facility] [place] Protein [Mass/Vol] 6.5 g/dL 6.4-8.2 [facility] Sodium [Moles/Vol] 139 mmol/L 136-145 [facility] WBC (Bld) [#/Vol] 6.7 10*3/uL 4.4-11.0 [facility] Blood erythrocytes count (nu mber/volume)Ordered By: Dina Olea on 03-11-2023 RBC (Bld) [#/Vol] 4.09 10*6/uL 4.2-5.4 [facility] Blood hemoglobin measurement (mass/volume)Ordered By: Dina Olea on 03-11-2023 Hemoglobin (Bld) [Mass/Vol] 12.4 g/dL 12.0-15.0 [facility] Blood lymphocytes/100 leukoc ytesOrdered By: Dina Olea on 03-11-2023 Lymphocytes/100 WBC (Bld) 32.2 % 19-41 [facility] Blood monocytes/100 leukocyt esOrdered By: Dina Olea on 03-11-2023 Monocytes/100 WBC (Bld) 12.7 % 0-10 [facility] Blood platelet mean volumeOr dered By: Dina Olea on 03-11-2023 Platelet mean volume (Bld) [Entitic vol] 11.2 fL 6.2-12.0 [facility] Determination of erythrocyte mean corpuscular volume (MCV)Ordered By: Dina Olea on 03-11-2023 MCV (RBC) [Entitic vol] 95.8 fL 81-99 [facility] Hematocrit Auto (Bld) [Volum e fraction]Ordered By: Dina Olea on 03-11-2023 Hematocrit (Bld) [Volume fraction] 39.2 % 37-47 [facility] Laboratory - Chemistry and C hemistry - challengeOrdered By: Dina Olea on 03-11-2023 ALP [Catalytic activity/Vol] 105 U/L 45-117 [facility] ALT [Catalytic activity/Vol] 31 U/L 13-56 [facility] CO2 [Moles/Vol] 30.0 mmol/L 21.0-32.0 [facility] Globulin (S) [Mass/Vol] 3.2 g/dL 2.2-4.2 [facility] Urea nitrogen/Creatinine [Mass ratio] 26.0 mg/mg 10-20 [facility] Laboratory - Hematology and Cell countsOrdered By: Dina Olea on 03-11-2023 Erythrocyte distribution width (RBC) [Entitic vol] 50.4 fL 35.1-43.9 [facility] Erythrocyte distribution width (RBC) [Ratio] 14.6 % 11.6-14.6 [facility] Immature granulocytes/100 WBC (Bld) 0.300 % 0.0-0.9 [facility] Comment on above: IG% - Immature Granu locytes (promyelocytes, myelocytes and metamyelocytes) > 1% indicates that a LEFT SHIFT is Present. MCH (RBC) [Entitic mass] 30.3 pg 27.0-32.0 [facility] Nucleated RBC/100 WBC (Bld) [Ratio] 0 % 0-5 [facility] MCHC Auto (RBC) [Mass/Vol]Or dered By: Dina Olea on 03-11-2023 MCHC (RBC) [Mass/Vol] 31.6 g/dL 32-36 [facility] [place] No Panel InformationOrdered By: Dina Olea on 03-11-2023 Estimated GFR (MDRD) Amer 104 mL/min >60 [facility] Comment on above: GFR Calc Estimated GFR (MDRD) Non-Af Amer 86 mL/min >60 [facility] Comment on above: Non- GFR Calc Platelets bldOrdered By: Violet Olea on 03-11-2023 Platelets (Bld) [#/Vol] 201 10*3/uL 150-450 [facility] Serum or plasma albumin enmanuel urement (mass/volume)Ordered By: Dina Olea on 03-11-2023 Albumin [Mass/Vol] 3.3 g/dL 3.2-5.0 [facility] Serum or plasma albumin/glob ulin mass ratioOrdered By: Dina Olea on 03-11-2023 Albumin/Globulin [Mass ratio] 1.0 {ratio} 0.9-2.4 [facility] Serum or plasma calcium enmanuel urement (mass/volume)Ordered By: Dina Olea on 03-11-2023 Calcium [Mass/Vol] 9.0 mg/dL 8.5-10.1 [facility] Serum or plasma creatinine m easurement (mass/volume)Ordered By: Dina Olea on 03-11-2023 Creatinine [Mass/Vol] 0.69 mg/dL 0.55-1.02 [facility] [place] Comment on above: The validity of the calculated GFR & GFRAA in patients over 70 years has not been determined. Clinical correlation is essential. Serum or plasma urea nitroge n measurement (mass/volume)Ordered By: Dina Olea on 03-11-2023 Urea nitrogen [Mass/Vol] 18 mg/dL 7-18 [facility] Thin prep Papanicolaou smear with manual screeningOrdered By: Dina Olea on 03-11-2023 Thin prep Papanicolaou smear with manual screening 29 U/L 15-37 [facility] Thin prep Papanicolaou smear with manual screening 3 5-15 [facility] UA DIP, URINE (POC)on 2022 BILIRUBIN UA (POCT) Negative Negative [facility] CLARITY UA (POCT) [facility] COLOR UA (POCT) [place] [facility] GLUCOSE UA (POCT) Negative Negative mg/dL [facility] Hemoglobin Ql (U) Negative Negative [facility] KETONE UA (POCT) Negative Negative mg/dL [facility] LEUKOCYTES UA (POCT) Trace Abnormal Negative [facility] NITRITE UA (POCT) Negative Negative [facility] PH UA (POCT) 7.0 4.5 - 8.0 [facility] Protein Ql (U) Negative Negative mg/dL [facility] SPECIFIC GRAVITY UA (POCT) 1.015 1.005 - 1.030 [facility] UROBILINOGEN UA (POCT) 0.2 E.U./dL Normal E.U./dL [facility] CT HEAD OR BRAIN W/O CONTRAS [...] 01/19/2023 1:25:21 PM Ordering Provider: MIRA Hooper [facility] ([place]) CT SPINE CERVICAL W/O CONTRA STon 01-19-2023 [...] 01/19/2023 1:32:00 PM Ordering Provider: MIRA VILLATORO [facility] ([place]) XR Knee AP and Lateral and Cristhian mata 01-12-2023 IMPRESSION: Stable T KA 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 Operator: JAIME Transcribe Date/Time: Jan 12 2023 3:07P Dictated by : ISAI PENNINGTON MD This examination was interpreted and the report reviewed and electronically signed by: ISAI PENNINGTON MD on Jan 12 2023 3:08PM EST [facility] * * *Final Report* * * [...] Small joint effusion. Right TKA is evident. [facility] Provider, Fatimah Ku - 01/12/2023 * [...] TKA is evident. IMPRESSION IMPRESSION: Stable TKA 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 Operator: PSCB Transcribe Date/Time: Jan 12 2023 3:07P Dictated by : ISAI PENNINGTON MD This examination was interpreted and the report reviewed and electronically signed by: ISAI PENNINGTON MD on Jan 12 2023 3:08PM EST [facility] XR Knee AP and Lateral and M erchantsOrdered By: [facility] Provider on 01-12-2023 [facility] C-REACTIVE PROTEIN (CRP)on 03-13-2022 CRP [Mass/Vol] 3.7 mg/dL High <0.9 mg/dL [facility] XR Knee AP and Lateral and M erchantson 01-11-2023 Radiology Study observation (narrative) [facility] No Panel Informationon 12-27 [facility] Absolute lymphocyte countOrd ered By: Dina Olea on 12-11-2022 Lymphocytes Auto (Unsp spec) [#/Vol] 1.78 10*3/uL 0.83-4.51 [facility] Basophil percentageOrdered B y: Dina Olea on 12-11-2022 Basophils/100 WBC (Bld) 0.7 % 0-1 [facility] Bilirubin [Mass/Vol] 0.50 mg/dL 0.20-1.00 [facility] Comment on above: For patients on eltr ombopag therapy, use of Dimension Dahlgren TBIL is not recommended. Chloride [Moles/Vol] 106 mmol/L 98-107 [facility] Eosinophils/100 WBC (Bld) 2.8 % 0-5 [facility] Glucose [Mass/Vol] 94 mg/dL 74-106 [facility] Neutrophils (Bld) [#/Vol] 3.5 10*3/uL 2.0-7.7 [facility] Neutrophils/100 WBC (Bld) 58.0 % 47-70 [facility] Potassium [Moles/Vol] 4.4 mmol/L 3.5-5.1 [facility] [place] Protein [Mass/Vol] 6.4 g/dL 6.4-8.2 [facility] Sodium [Moles/Vol] 138 mmol/L 136-145 [facility] WBC (Bld) [#/Vol] 6.0 10*3/uL 4.4-11.0 [facility] Blood erythrocytes count (nu mber/volume)Ordered By: Dina Olea on 12-11-2022 RBC (Bld) [#/Vol] 4.04 10*6/uL 4.2-5.4 [facility] Blood hemoglobin measurement (mass/volume)Ordered By: Dina Olea on 12-11-2022 Hemoglobin (Bld) [Mass/Vol] 12.2 g/dL 12.0-15.0 [facility] Blood lymphocytes/100 leukoc ytesOrdered By: Dina Olea on 12-11-2022 Lymphocytes/100 WBC (Bld) 29.5 % 19-41 [facility] Blood monocytes/100 leukocyt esOrdered By: Dina Olea on 12-11-2022 Monocytes/100 WBC (Bld) 8.5 % 0-10 [facility] Blood platelet mean volumeOr dered By: Dina Olea on 12-11-2022 Platelet mean volume (Bld) [Entitic vol] 9.8 fL 6.2-12.0 [facility] Determination of erythrocyte mean corpuscular volume (MCV)Ordered By: Dina Olea on 12-11-2022 MCV (RBC) [Entitic vol] 96.8 fL 81-99 [facility] Hematocrit Auto (Bld) [Volum e fraction]Ordered By: Dina Olea on 12-11-2022 Hematocrit (Bld) [Volume fraction] 39.1 % 37-47 [facility] Laboratory - Chemistry and C hemistry - challengeOrdered By: Dina Olea on 12-11-2022 ALP [Catalytic activity/Vol] 113 U/L 45-117 [facility] ALT [Catalytic activity/Vol] 29 U/L 13-56 [facility] CO2 [Moles/Vol] 30.0 mmol/L 21.0-32.0 [facility] Globulin (S) [Mass/Vol] 3.4 g/dL 2.2-4.2 [facility] Urea nitrogen/Creatinine [Mass ratio] 16.7 mg/mg 10-20 [facility] Laboratory - Hematology and Cell countsOrdered By: Dina Olea on 12-11-2022 Erythrocyte distribution width (RBC) [Entitic vol] 46.9 fL 35.1-43.9 [facility] Erythrocyte distribution width (RBC) [Ratio] 13.3 % 11.6-14.6 [facility] Immature granulocytes/100 WBC (Bld) 0.500 % 0.0-0.9 [facility] Comment on above: IG% - Immature Granu locytes (promyelocytes, myelocytes and metamyelocytes) > 1% indicates that a LEFT SHIFT is Present. MCH (RBC) [Entitic mass] 30.2 pg 27.0-32.0 [facility] Nucleated RBC/100 WBC (Bld) [Ratio] 0 % 0-5 [facility] MCHC Auto (RBC) [Mass/Vol]Or dered By: Dina Olea on 12-11-2022 MCHC (RBC) [Mass/Vol] 31.2 g/dL 32-36 [facility] [place] No Panel InformationOrdered By: Dina Olea on 12-11-2022 Estimated GFR (MDRD) Amer 123 mL/min >60 [facility] Comment on above: GFR Calc Estimated GFR (MDRD) Non-Af Amer 102 mL/min >60 [facility] Comment on above: Non- GFR Calc Platelets bldOrdered By: Violet Olea on 12-11-2022 Platelets (Bld) [#/Vol] 282 10*3/uL 150-450 [facility] Serum or plasma albumin enmanuel urement (mass/volume)Ordered By: Dina Olea on 12-11-2022 Albumin [Mass/Vol] 3.0 g/dL 3.2-5.0 [facility] Serum or plasma albumin/glob ulin mass ratioOrdered By: Dina Olea on 12-11-2022 Albumin/Globulin [Mass ratio] 0.9 {ratio} 0.9-2.4 [facility] Serum or plasma calcium enmanuel urement (mass/volume)Ordered By: Dina Olea on 12-11-2022 Calcium [Mass/Vol] 8.9 mg/dL 8.5-10.1 [facility] Serum or plasma creatinine m easurement (mass/volume)Ordered By: Dina Olea on 12-11-2022 Creatinine [Mass/Vol] 0.60 mg/dL 0.55-1.02 [facility] [place] Comment on above: The validity of the calculated GFR & GFRAA in patients over 70 years has not been determined. Clinical correlation is essential. Serum or plasma urea nitroge n measurement (mass/volume)Ordered By: Dina lOea on 12-11-2022 Urea nitrogen [Mass/Vol] 10 mg/dL 7-18 [facility] Thin prep Papanicolaou smear with manual screeningOrdered By: Dina Olea on 12-11-2022 Thin prep Papanicolaou smear with manual screening 25 U/L 15-37 [facility] Thin prep Papanicolaou smear with manual screening 2 5-15 [facility] DXA-AXIAL SKELETONon [address] [facility] [address] CHEST IVCONon 11-23-19 23 Radiology Result ACTIONABLE Abnormal [facility] UA DIP, URINE (POC)on 2022 BILIRUBIN UA (POCT) Negative Negative [facility] CLARITY UA (POCT) [facility] COLOR UA (POCT) [place] [facility] GLUCOSE UA (POCT) Negative Negative mg/dL [facility] Hemoglobin Ql (U) Large Abnormal [facility] KETONE UA (POCT) Negative Negative mg/dL [facility] LEUKOCYTES UA (POCT) Moderate Abnormal Negative [facility] (POCT) Negative [facility] PH UA (POCT) 7.5 4.5 - 8.0 [facility] Protein Ql (U) 30 mg/dL Abnormal Negative mg/dL [facility] SPECIFIC GRAVITY UA (POCT) 1.015 1.005 - 1.[address] [facility] UROBILINOGEN UA (POCT) 0.2 E.U./dL Normal E.U./dL [facility] XR Chest PA and Lateralon IMPRESSION: No acute radiographic abnormality. 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 Operator: JAIME Transcribe Date/Time: Sep 28 2022 11:32A Dictated by : EMRE NARANJO MD This examination was interpreted and the report reviewed and electronically signed by: EMRE NARANJO MD on Sep 28 2022 11:32AM [facility] DIVISION OF RADIOLOGY * * *Final Report* [...] spine. IMPRESSION IMPRESSION: No acute radiographic abnormality. 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[employer] Operator: [facility] Transcribe Date/Time: Sep 28 2022 11:32A Dictated by : EMRE NARANJO MD This examination was interpreted and the report reviewed and electronically signed by: EMRE NARANJO MD on Sep 28 2022 11:32AM EST [facility] XR Chest PA and LateralOrder ed By: [facility] Provider on 09-28-2022 [facility] XR Chest PA and Lateralon Radiology Study observation (narrative) [facility] Absolute lymphocyte countOrd ered By: Dina Olea on 09-13-2022 Lymphocytes Auto (Unsp spec) [#/Vol] 1.44 10*3/uL 0.83-4.51 [facility] Basophil percentageOrdered B y: Dina Olea on 09-13-2022 Basophils/100 WBC (Bld) 0.4 % 0-1 [facility] Bilirubin [Mass/Vol] 0.70 mg/dL 0.20-1.00 [facility] Comment on above: For patients on eltr ombopag therapy, use of Dimension Dahlgren TBIL is not recommended. Chloride [Moles/Vol] 108 mmol/L 98-107 [facility] Eosinophils/100 WBC (Bld) 3.0 % 0-5 [facility] Glucose [Mass/Vol] 90 mg/dL 74-106 [facility] Neutrophils (Bld) [#/Vol] 3.3 10*3/uL 2.0-7.7 [facility] Neutrophils/100 WBC (Bld) 61.2 % 47-70 [facility] Potassium [Moles/Vol] 4.3 mmol/L 3.5-5.1 [facility] [place] Protein [Mass/Vol] 6.3 g/dL 6.4-8.2 [facility] Sodium [Moles/Vol] 139 mmol/L 136-145 [facility] WBC (Bld) [#/Vol] 5.4 10*3/uL 4.4-11.0 [facility] Blood erythrocytes count (nu mber/volume)Ordered By: Dina Olea on 09-13-2022 RBC (Bld) [#/Vol] 3.90 10*6/uL 4.2-5.4 [facility] Blood hemoglobin measurement (mass/volume)Ordered By: Dina Olea on 09-13-2022 Hemoglobin (Bld) [Mass/Vol] 12.0 g/dL 12.0-15.0 [facility] Blood lymphocytes/100 leukoc ytesOrdered By: Dina Olea on 09-13-2022 Lymphocytes/100 WBC (Bld) 26.8 % 19-41 [facility] Blood monocytes/100 leukocyt esOrdered By: Dina Olea on 09-13-2022 Monocytes/100 WBC (Bld) 8.4 % 0-10 [facility] Blood platelet mean volumeOr dered By: Dina Olea on 09-13-2022 Platelet mean volume (Bld) [Entitic vol] 11.3 fL 6.2-12.0 [facility] Determination of erythrocyte mean corpuscular volume (MCV)Ordered By: Dina Olea on 09-13-2022 MCV (RBC) [Entitic vol] 96.2 fL 81-99 [facility] Hematocrit Auto (Bld) [Volum e fraction]Ordered By: Dina Lefty on 09-13-2022 Hematocrit (Bld) [Volume fraction] 37.5 % 37-47 [facility] Laboratory - Chemistry and C hemistry - challengeOrdered By: [facility] Lefty on 09-13-2022 ALP [Catalytic activity/Vol] 95 U/L 45-117 [facility] ALT [Catalytic activity/Vol] 28 U/L 13-56 [facility] CO2 [Moles/Vol] 25.0 mmol/L 21.0-32.0 [facility] Globulin (S) [Mass/Vol] 3.0 g/dL 2.2-4.2 [facility] Urea nitrogen/Creatinine [Mass ratio] 21.9 mg/mg 10-20 [facility] Laboratory - Hematology and Cell countsOrdered By: Dina Olea on 09-13-2022 Erythrocyte distribution width (RBC) [Entitic vol] 49.1 fL 35.1-43.9 [facility] Erythrocyte distribution width (RBC) [Ratio] 14.0 % 11.6-14.6 [facility] Immature granulocytes/100 WBC (Bld) 0.200 % 0.0-0.9 [facility] Comment on above: IG% - Immature Granu locytes (promyelocytes, myelocytes and metamyelocytes) > 1% indicates that a LEFT SHIFT is Present. MCH (RBC) [Entitic mass] 30.8 pg 27.0-32.0 [facility] Nucleated RBC/100 WBC (Bld) [Ratio] 0 % 0-5 [facility] MCHC Auto (RBC) [Mass/Vol]Or dered By: Dina Olea on 09-13-2022 MCHC (RBC) [Mass/Vol] 32.0 g/dL 32-36 [facility] [place] No Panel InformationOrdered By: Dina Olea on 09-13-2022 Estimated GFR (MDRD) Amer 106 mL/min >60 [facility] Comment on above: GFR Calc Estimated GFR (MDRD) Non-Af Amer 87 mL/min >60 [facility] Comment on above: Non- GFR Calc Platelets bldOrdered By: Violet Olea on 09-13-2022 Platelets (Bld) [#/Vol] 201 10*3/uL 150-450 [facility] Serum or plasma albumin enmanuel urement (mass/volume)Ordered By: Dina Olea on 09-13-2022 Albumin [Mass/Vol] 3.3 g/dL 3.2-5.0 [facility] Serum or plasma albumin/glob ulin mass ratioOrdered By: Dina Olea on 09-13-2022 Albumin/Globulin [Mass ratio] 1.1 {ratio} 0.9-2.4 [facility] Serum or plasma calcium enmanuel urement (mass/volume)Ordered By: Dina Olea on 09-13-2022 Calcium [Mass/Vol] 8.7 mg/dL 8.5-10.1 [facility] Serum or plasma creatinine m easurement (mass/volume)Ordered By: Dina Olea on 09-13-2022 Creatinine [Mass/Vol] 0.68 mg/dL 0.55-1.02 [facility] [place] Comment on above: The validity of the calculated GFR & GFRAA in patients over 70 years has not been determined. Clinical correlation is essential. Serum or plasma urea nitroge n measurement (mass/volume)Ordered By: Dina Olea on 09-13-2022 Urea nitrogen [Mass/Vol] 15 mg/dL 7-18 [facility] Thin prep Papanicolaou smear with manual screeningOrdered By: Dina Olea on 09-13-2022 Thin prep Papanicolaou smear with manual screening 28 U/L 15-37 [facility] Thin prep Papanicolaou smear with manual screening 6 5-15 [facility] CT BRAIN WO IVCONon 08-16-19 [facility] Absolute lymphocyte countOrd ered By: Dina Olea on 06-25-2022 Lymphocytes Auto (Unsp spec) [#/Vol] 1.95 10*3/uL 0.83-4.51 [facility] Basophil percentageOrdered B y: Dina Olea on 06-25-2022 Basophils/100 WBC (Bld) 0.8 % 0-1 [facility] Bilirubin [Mass/Vol] 0.30 mg/dL 0.20-1.00 [facility] Comment on above: For patients on eltr ombopag therapy, use of Dimension Dahlgren TBIL is not recommended. Chloride [Moles/Vol] 109 mmol/L 98-107 [facility] Eosinophils/100 WBC (Bld) 4.0 % 0-5 [facility] Glucose [Mass/Vol] 93 mg/dL 74-106 [facility] Neutrophils (Bld) [#/Vol] 2.5 10*3/uL 2.0-7.7 [facility] Neutrophils/100 WBC (Bld) 47.2 % 47-70 [facility] Potassium [Moles/Vol] 4.6 mmol/L 3.5-5.1 [facility] Protein [Mass/Vol] 6.3 g/dL 6.4-8.2 [facility] Sodium [Moles/Vol] 139 mmol/L 136-145 [facility] WBC (Bld) [#/Vol] 5.3 10*3/uL 4.4-11.0 [facility] Blood erythrocytes count (nu mber/volume)Ordered By: Dina Olea on 06-25-2022 RBC (Bld) [#/Vol] 4.03 10*6/uL 4.2-5.4 [facility] Blood hemoglobin measurement (mass/volume)Ordered By: Dina Olea on 06-25-2022 Hemoglobin (Bld) [Mass/Vol] 12.4 g/dL 12.0-15.0 [facility] Blood lymphocytes/100 leukoc ytesOrdered By: Dina Olea on 06-25-2022 Lymphocytes/100 WBC (Bld) 37.1 % 19-41 [facility] Blood monocytes/100 leukocyt esOrdered By: Dina Olea on 06-25-2022 Monocytes/100 WBC (Bld) 10.3 % 0-10 [facility] Blood platelet mean volumeOr dered By: Dina Olea on 06-25-2022 Platelet mean volume (Bld) [Entitic vol] 11.1 fL 6.2-12.0 [facility] Determination of erythrocyte mean corpuscular volume (MCV)Ordered By: Dina Olea on 06-25-2022 MCV (RBC) [Entitic vol] 98.0 fL 81-99 [facility] Hematocrit Auto (Bld) [Volum e fraction]Ordered By: Dina Olea on 06-25-2022 Hematocrit (Bld) [Volume fraction] 39.5 % 37-47 [facility] Laboratory - Chemistry and C hemistry - challengeOrdered By: [facility] on 06-25-2022 ALP [Catalytic activity/Vol] 107 U/L 45-117 [facility] ALT [Catalytic activity/Vol] 27 U/L 13-56 [facility] CO2 [Moles/Vol] 29.0 mmol/L 21.0-32.0 [facility] Globulin (S) [Mass/Vol] 3.1 g/dL 2.2-4.2 [facility] Urea nitrogen/Creatinine [Mass ratio] 22.9 mg/mg 10-20 [facility] Laboratory - Hematology and Cell countsOrdered By: Dina Olea on 06-25-2022 Erythrocyte distribution width (RBC) [Entitic vol] 51.8 fL 35.1-43.9 [facility] Erythrocyte distribution width (RBC) [Ratio] 14.4 % 11.6-14.6 [facility] Immature granulocytes/100 WBC (Bld) 0.600 % 0.0-0.9 [facility] Comment on above: IG% - Immature Granu locytes (promyelocytes, myelocytes and metamyelocytes) > 1% indicates that a LEFT SHIFT is Present. MCH (RBC) [Entitic mass] 30.8 pg 27.0-32.0 [facility] Nucleated RBC/100 WBC (Bld) [Ratio] 0 % 0-5 [facility] MCHC Auto (RBC) [Mass/Vol]Or dered By: Dina Olea on 06-25-2022 MCHC (RBC) [Mass/Vol] 31.4 g/dL 32-36 [facility] No Panel InformationOrdered By: Dina Olea on 06-25-2022 Estimated GFR (MDRD) Amer 111 mL/min >60 [facility] Comment on above: GFR Calc Estimated GFR (MDRD) Non-Af Amer 92 mL/min >60 [facility] Comment on above: Non- GFR Calc Platelets bldOrdered By: Violet Olea on 06-25-2022 Platelets (Bld) [#/Vol] 226 10*3/uL 150-450 [facility] Serum or plasma albumin enmanuel urement (mass/volume)Ordered By: Dina Olea on 06-25-2022 Albumin [Mass/Vol] 3.2 g/dL 3.2-5.0 [facility] Serum or plasma albumin/glob ulin mass ratioOrdered By: Dina Olea on 06-25-2022 Albumin/Globulin [Mass ratio] 1.0 {ratio} 0.9-2.4 [facility] Serum or plasma calcium enmanuel urement (mass/volume)Ordered By: Dina Olea on 06-25-2022 Calcium [Mass/Vol] 9.4 mg/dL 8.5-10.1 [facility] Serum or plasma creatinine m easurement (mass/volume)Ordered By: Dina Olea on 06-25-2022 Creatinine [Mass/Vol] 0.66 mg/dL 0.55-1.02 [facility] Comment on above: The validity of the calculated GFR & GFRAA in patients over 70 years has not been determined. Clinical correlation is essential. Serum or plasma urea nitroge n measurement (mass/volume)Ordered By: Dina Olea on 06-25-2022 Urea nitrogen [Mass/Vol] 15 mg/dL 7-18 [facility] Thin prep Papanicolaou smear with manual screeningOrdered By: Dina Olea on 06-25-2022 Thin prep Papanicolaou smear with manual screening 24 U/L 15-37 [facility] Thin prep Papanicolaou smear with manual screening 1 5-15 [facility] SURGICAL PATHOLOGYon 023 Case Report Surgical Pathology R eport Case: [id number] Authorizing Provider: Owen Rivas MD Collected: 05/10/2022 10:16 AM Ordering Location: Ambulatory Surgery Received: 05/10/2022 12:55 PM Pathologist: Ino Mccain MD Specimen: RECTAL BIOPSY, Rectal mass bxs [facility] Diagnosis Comment The biopsy shows col onic mucosa with mucosal prolapse, ulceration and ischemic type changes. There is no evidence of dysplasia or malignancy. Multiple deeper tissue levels have been examined. The presence of a mass lesion is noted. 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 Clinical correlation is recommended. [facility] FINAL DIAGNOSIS A. Rectum, mass, bio psies: - Negative for malignancy; see comment - Fragments of colonic mucosa with ischemic change and ulceration. [facility] Gross Description A. RECTAL BIOPSY Received in formalin are multiple pieces of rendon, soft tissue aggregating to 1.6 x 0.3 x 0.3 cm. Totally submitted in one cassette. Gross examination performed at [facility], [address] [place] [address] FFS 05/10/2022 11:49 PM [facility] Performing Lab Diagnostic interpret ation performed at [facility], [address] [place] [address] CLIA# [id number] Market Analyst: Cipriano Falcon M.D. [facility] COLONOSCOPY SCREENINGon [facility] UA DIP, URINE (POC)on 2022 BILIRUBIN UA (POCT) Negative Negative [facility] CLARITY UA (POCT) [facility] COLOR UA (POCT) Yellow [facility] GLUCOSE UA (POCT) Negative Negative mg/dL [facility] HEMOGLOBIN/BLOOD UA (POCT) Negative Negative [facility] KETONE UA (POCT) Negative Negative mg/dL [facility] LEUKOCYTES UA (POCT) Small Abnormal Negative [facility] NITRITE UA (POCT) Negative [facility] PH UA (POCT) 7.0 4.5 - 8.0 [facility] Protein Ql (U) Negative Negative mg/dL [facility] SPECIFIC GRAVITY UA (POCT) 1.010 1.005 - 1.030 [facility] UROBILINOGEN UA (POCT) 0.2 E.U./dL Normal E.U./dL [facility] UA DIP, URINE (POC)on 2022 BILIRUBIN UA (POCT) Negative Negative [facility] CLARITY UA (POCT) [facility] COLOR UA (POCT) Yellow [facility] GLUCOSE UA (POCT) Negative Negative mg/dL [facility] HEMOGLOBIN/BLOOD UA (POCT) Trace-intact Abnormal Negative [facility] KETONE UA (POCT) Negative Negative mg/dL [facility] LEUKOCYTES UA (POCT) Negative Negative [facility] NITRITE UA (POCT) Negative [facility] PH UA (POCT) 7.0 4.5 - 8.0 [facility] Protein Ql (U) Negative Negative mg/dL [facility] SPECIFIC GRAVITY UA (POCT) 1.010 1.005 - 1.030 [facility] UROBILINOGEN UA (POCT) 0.2 E.U./dL Normal E.U./dL [facility] Absolute lymphocyte countOrd ered By: Dr. Olea on 03-26-2022 Lymphocytes Auto (Unsp spec) [#/Vol] 1.54 10*3/uL 0.83-4.51 [facility] Basophil percentageOrdered B y: Dr. Olea on 03-26-2022 Basophils/100 WBC (Bld) 0.3 % 0-1 [facility] Bilirubin [Mass/Vol] 0.50 mg/dL 0.20-1.00 [facility] Comment on above: For patients on eltr ombopag therapy, use of Dimension Dahlgren TBIL is not recommended. Chloride [Moles/Vol] 101 mmol/L 98-107 [facility] Eosinophils/100 WBC (Bld) 2.1 % 0-5 [facility] Glucose [Mass/Vol] 93 mg/dL 74-106 [facility] Neutrophils (Bld) [#/Vol] 3.4 10*3/uL 2.0-7.7 [facility] Neutrophils/100 WBC (Bld) 59.2 % 47-70 [facility] Potassium [Moles/Vol] 4.6 mmol/L 3.5-5.1 [facility] Protein [Mass/Vol] 6.6 g/dL 6.4-8.2 [facility] Sodium [Moles/Vol] 136 mmol/L 136-145 [facility] WBC (Bld) [#/Vol] 5.7 10*3/uL 4.4-11.0 [facility] Blood erythrocytes count (nu mber/volume)Ordered By: Dr. Olea on 03-26-2022 RBC (Bld) [#/Vol] 4.17 10*6/uL 4.2-5.4 [facility] Blood hemoglobin measurement (mass/volume)Ordered By: Dr. Olea on 03-26-2022 Hemoglobin (Bld) [Mass/Vol] 12.9 g/dL 12.0-15.0 [facility] Blood lymphocytes/100 leukoc ytesOrdered By: Dr. Olea on 03-26-2022 Lymphocytes/100 WBC (Bld) 26.9 % 19-41 [facility] Blood monocytes/100 leukocyt esOrdered By: Dr. Olea on 03-26-2022 Monocytes/100 WBC (Bld) 11.2 % 0-10 [facility] Blood platelet mean volumeOr dered By: Dr. Olea on 03-26-2022 Platelet mean volume (Bld) [Entitic vol] 11.0 fL 6.2-12.0 [facility] Determination of erythrocyte mean corpuscular volume (MCV)Ordered By: Dr. Olea on 03-26-2022 MCV (RBC) [Entitic vol] 96.6 fL 81-99 [facility] Hematocrit Auto (Bld) [Volum e fraction]Ordered By: Dr. Olea on 03-26-2022 Hematocrit (Bld) [Volume fraction] 40.3 % 37-47 [facility] Laboratory - Chemistry and C hemistry - challengeOrdered By: Dr. Olea on 03-26-2022 ALP [Catalytic activity/Vol] 111 U/L 45-117 [facility] ALT [Catalytic activity/Vol] 27 U/L 13-56 [facility] CO2 [Moles/Vol] 31.0 mmol/L 21.0-32.0 [facility] Globulin (S) [Mass/Vol] 3.3 g/dL 2.2-4.2 [facility] Urea nitrogen/Creatinine [Mass ratio] 19.7 mg/mg 10-20 [facility] Laboratory - Hematology and Cell countsOrdered By: Dr. Olea on 03-26-2022 Erythrocyte distribution width (RBC) [Entitic vol] 46.2 fL 35.1-43.9 [facility] Erythrocyte distribution width (RBC) [Ratio] 13.2 % 11.6-14.6 [facility] Immature granulocytes/100 WBC (Bld) 0.300 % 0.0-0.9 [facility] Comment on above: IG% - Immature Granu locytes (promyelocytes, myelocytes and metamyelocytes) > 1% indicates that a LEFT SHIFT is Present. MCH (RBC) [Entitic mass] 30.9 pg 27.0-32.0 [facility] Nucleated RBC/100 WBC (Bld) [Ratio] 0.3 % 0-5 [facility] MCHC Auto (RBC) [Mass/Vol]Or dered By: Dr. Olea on 03-26-2022 MCHC (RBC) [Mass/Vol] 32.0 g/dL 32-36 [facility] No Panel InformationOrdered By: Dr. Olea on 03-26-2022 Estimated GFR (MDRD) Amer 110 mL/min >60 [facility] Comment on above: GFR Calc Estimated GFR (MDRD) Non-Af Amer 91 mL/min >60 [facility] Comment on above: Non- GFR Calc Platelets bldOrdered By: Dr. Olea on 03-26-2022 Platelets (Bld) [#/Vol] 197 10*3/uL 150-450 [facility] Serum or plasma albumin enmanuel urement (mass/volume)Ordered By: Dr. Olea on 03-26-2022 Albumin [Mass/Vol] 3.3 g/dL 3.2-5.0 [facility] Serum or plasma albumin/glob ulin mass ratioOrdered By: Dr. Olea on 03-26-2022 Albumin/Globulin [Mass ratio] 1.0 {ratio} 0.9-2.4 [facility] Serum or plasma calcium enmanuel urement (mass/volume)Ordered By: Dr. Olea on 03-26-2022 Calcium [Mass/Vol] 9.2 mg/dL 8.5-10.1 [facility] Serum or plasma creatinine m easurement (mass/volume)Ordered By: Dr. Olea on 03-26-2022 Creatinine [Mass/Vol] 0.66 mg/dL 0.55-1.02 [facility] Comment on above: The validity of the calculated GFR & GFRAA in patients over 70 years has not been determined. Clinical correlation is essential. Serum or plasma urea nitroge n measurement (mass/volume)Ordered By: Dr. Olea on 03-26-2022 Urea nitrogen [Mass/Vol] 13 mg/dL 7-18 [facility] Thin prep Papanicolaou smear with manual screeningOrdered By: Dr. Olea on 03-26-2022 Thin prep Papanicolaou smear with manual screening 23 U/L 15-37 [facility] Thin prep Papanicolaou smear with manual screening 4 5-15 [facility] XR DEFECOGRAPHYon 03-08-2022 [facility] URINE CULTUREon 03-07-2022 Bacteria identified Cx Nom (U) 10,000 -<50,000 CFU/ml Mixed microbiota Abnormal [facility] Influenza virus A and B RNA and SARS-CoV-2 (COVID-19) N gene panel PRABHA+probe (Resp)on 03-06-2022 FLUAV RNA PRABHA+probe Ql (Unsp spec) Negative Negative for Influenza A by RT-PCR [facility] FLUBV RNA PRABHA+probe Ql (Unsp spec) Negative Negative for Influenza B by RT-PCR [facility] SARS-CoV-2 (COVID-19) RNA PRABHA+probe Ql (Resp) SARS-CoV-2 (Agent of COVID-19) Not Detected by RT-PCR or equivalent method. Not Detected [facility] UA DIP, URINE (POC)on 2022 BILIRUBIN UA (POCT) Negative Negative [facility] CLARITY UA (POCT) [facility] COLOR UA (POCT) Yellow [facility] GLUCOSE UA (POCT) Negative Negative mg/dL [facility] HEMOGLOBIN/BLOOD UA (POCT) Negative Negative [facility] KETONE UA (POCT) Negative Negative mg/dL [facility] LEUKOCYTES UA (POCT) Negative Negative [facility] NITRITE UA (POCT) Negative Negative [facility] PH UA (POCT) 7.5 4.5 - 8.0 [facility] Protein Ql (U) Negative Negative mg/dL [facility] SPECIFIC GRAVITY UA (POCT) 1.010 1.005 - 1.030 [facility] UROBILINOGEN UA (POCT) 0.2 E.U./dL Normal E.U./dL [facility] UA DIP, URINE (POC)on 2021 BILIRUBIN UA (POCT) Negative Negative [facility] CLARITY UA (POCT) [facility] COLOR UA (POCT) Light yellow [facility] GLUCOSE UA (POCT) Negative Negative mg/dL [facility] HEMOGLOBIN/BLOOD UA (POCT) Trace-intact Abnormal Negative [facility] KETONE UA (POCT) Negative Negative mg/dL [facility] LEUKOCYTES UA (POCT) Negative Negative [facility] NITRITE UA (POCT) Negative Negative [facility] PH UA (POCT) 7.0 4.5 - 8.0 [facility] Protein Ql (U) Negative Negative mg/dL [facility] SPECIFIC GRAVITY UA (POCT) 1.010 1.005 - 1.030 [facility] UROBILINOGEN UA (POCT) 0.2 E.U./dL Normal E.U./dL [facility] UA DIP, URINE (POC)on 2021 BILIRUBIN UA (POCT) Negative Negative [facility] CLARITY UA (POCT) [facility] COLOR [facility]A (POCT) Yellow [facility] GLUCOSE UA (POCT) Negative Negative mg/dL [facility] HEMOGLOBIN/BLOOD UA (POCT) Negative Negative [facility] KETONE UA (POCT) Negative Negative mg/dL [facility] LEUKOCYTES UA (POCT) Trace Abnormal Negative [facility] NITRITE UA (POCT) Negative Negative [facility] PH UA (POCT) 7.0 4.5 - 8.[address] [facility] Protein Ql (U) Negative Negative mg/dL [facility] SPECIFIC GRAVITY UA (POCT) 1.010 1.005 - 1.030 [facility] UROBILINOGEN UA (POCT) 0.2 E.U./dL Normal E.U./dL [facility] UA DIP, URINE (POC)on 2021 BILIRUBIN UA (POCT) Negative Negative [facility] CLARITY UA (POCT) [facility] COLOR UA (POCT) Yellow [facility] GLUCOSE UA (POCT) Negative Negative mg/dL [facility] HEMOGLOBIN/BLOOD UA (POCT) Negative Negative [facility] KETONE UA (POCT) Negative Negative mg/dL [facility] LEUKOCYTES UA (POCT) Trace Abnormal Negative [facility] NITRITE UA (POCT) Negative Negative [facility] PH UA (POCT) 6.5 4.5 - 8.0 [facility] Protein Ql (U) Negative Negative mg/dL [facility] SPECIFIC GRAVITY UA (POCT) 1.010 1.005 - 1.030 [facility] UROBILINOGEN UA (POCT) 0.2 E.U./dL Normal E.U./dL [facility] UA DIP, URINE (POC)on 2021 BILIRUBIN UA (POCT) Negative Negative [facility] CLARITY UA (POCT) [facility] COLOR UA (POCT) Yellow [facility] GLUCOSE UA (POCT) Negative Negative mg/dL [facility] HEMOGLOBIN/BLOOD UA (POCT) Negative Negative [facility] KETONE UA (POCT) Negative Negative mg/dL [facility] LEUKOCYTES UA (POCT) Negative Negative [facility] NITRITE UA (POCT) Negative Negative [facility] PH UA (POCT) 7.5 4.5 - 8.[address] [facility] Protein Ql (U) Negative Negative mg/dL [facility] SPECIFIC GRAVITY UA (POCT) 1.010 1.005 - 1.030 [facility] UROBILINOGEN UA (POCT) 0.2 E.U./dL Normal E.U./dL [facility] Absolute lymphocyte countOrd ered By: Dr. Olea on 01-01-2022 Lymphocytes Auto (Unsp spec) [#/Vol] 1.95 10*3/uL 0.83-4.51 [facility] Basophil percentageOrdered B y: Dr. Olea on 01-01-2022 Basophils/100 WBC (Bld) 0.7 % 0-1 [facility] Bilirubin [Mass/Vol] 0.30 mg/dL 0.20-1.00 [facility] Comment on above: For patients on eltr ombopag therapy, use of Dimension Dahlgren TBIL is not recommended. Chloride [Moles/Vol] 105 mmol/L 98-107 [facility] Eosinophils/100 WBC (Bld) 6.7 % 0-5 [facility] Glucose [Mass/Vol] 99 mg/dL 74-106 [facility] Neutrophils (Bld) [#/Vol] 2.8 10*3/uL 2.0-7.7 [facility] Neutrophils/100 WBC (Bld) 46.1 % 47-70 [facility] Potassium [Moles/Vol] 4.4 mmol/L 3.5-5.1 [facility] Protein [Mass/Vol] 6.6 g/dL 6.4-8.2 [facility] Sodium [Moles/Vol] 140 mmol/L 136-145 [facility] WBC (Bld) [#/Vol] 6.0 10*3/uL 4.4-11.0 [facility] Blood erythrocytes count (nu mber/volume)Ordered By: Dr. Olea on 01-01-2022 RBC (Bld) [#/Vol] 4.07 10*6/uL 4.2-5.4 [facility] Blood hemoglobin measurement (mass/volume)Ordered By: Dr. Olea on 01-01-2022 Hemoglobin (Bld) [Mass/Vol] 12.9 g/dL 12.0-15.0 [facility] Blood lymphocytes/100 leukoc ytesOrdered By: Dr. Olea on 01-01-2022 Lymphocytes/100 WBC (Bld) 32.7 % 19-41 [facility] Blood monocytes/100 leukocyt esOrdered By: Dr. Olea on 01-01-2022 Monocytes/100 WBC (Bld) 13.1 % 0-10 [facility] Blood platelet mean volumeOr dered By: Dr. Olea on 01-01-2022 Platelet mean volume (Bld) [Entitic vol] 10.7 fL 6.2-12.0 [facility] Determination of erythrocyte mean corpuscular volume (MCV)Ordered By: Dr. Olea on 01-01-2022 MCV (RBC) [Entitic vol] 96.6 fL 81-99 [facility] Hematocrit Auto (Bld) [Volum e fraction]Ordered By: Dr. Olea on 01-01-2022 Hematocrit (Bld) [Volume fraction] 39.3 % 37-47 [facility] Laboratory - Chemistry and C hemistry - challengeOrdered By: Dr. Olea on 01-01-2022 ALP [Catalytic activity/Vol] 122 U/L 45-117 [facility] ALT [Catalytic activity/Vol] 25 U/L 13-56 [facility] CO2 [Moles/Vol] 31.0 mmol/L 21.0-32.0 [facility] Globulin (S) [Mass/Vol] 3.3 g/dL 2.2-4.2 [facility] Urea nitrogen/Creatinine [Mass ratio] 23.7 mg/mg 10-20 [facility] Laboratory - Hematology and Cell countsOrdered By: Dr. Olea on 01-01-2022 Erythrocyte distribution width (RBC) [Entitic vol] 50.4 fL 35.1-43.9 [facility] Erythrocyte distribution width (RBC) [Ratio] 14.6 % 11.6-14.6 [facility] Immature granulocytes/100 WBC (Bld) 0.700 % 0.0-0.9 [facility] Comment on above: IG% - Immature Granu locytes (promyelocytes, myelocytes and metamyelocytes) > 1% indicates that a LEFT SHIFT is Present. MCH (RBC) [Entitic mass] 31.7 pg 27.0-32.0 [facility] Nucleated RBC/100 WBC (Bld) [Ratio] 0 % 0-5 [facility] MCHC Auto (RBC) [Mass/Vol]Or dered By: Dr. Olea on 01-01-2022 MCHC (RBC) [Mass/Vol] 32.8 g/dL 32-36 [facility] No Panel InformationOrdered By: Dr. Olea on 01-01-2022 Estimated GFR (MDRD) Amer 116 mL/min >60 [facility] Comment on above: GFR Calc Estimated GFR (MDRD) Non-Af Amer 96 mL/min >60 [facility] Comment on above: Non- GFR Calc Platelets bldOrdered By: Dr. Olea on 01-01-2022 Platelets (Bld) [#/Vol] 265 10*3/uL 150-450 [facility] Serum or plasma albumin enmanuel urement (mass/volume)Ordered By: Dr. Olea on 01-01-2022 Albumin [Mass/Vol] 3.3 g/dL 3.2-5.0 [facility] Serum or plasma albumin/glob ulin mass ratioOrdered By: Dr. Olea on 01-01-2022 Albumin/Globulin [Mass ratio] 1.0 {ratio} 0.9-2.4 [facility] Serum or plasma calcium enmanuel urement (mass/volume)Ordered By: Dr. Olea on 01-01-2022 Calcium [Mass/Vol] 9.3 mg/dL 8.5-10.1 [facility] Serum or plasma creatinine m easurement (mass/volume)Ordered By: Dr. Olea on 01-01-2022 Creatinine [Mass/Vol] 0.63 mg/dL 0.55-1.02 [facility] Comment on above: The validity of the calculated GFR & GFRAA in patients over 70 years has not been determined. Clinical correlation is essential. Serum or plasma urea nitroge n measurement (mass/volume)Ordered By: Dr. Olea on 01-01-2022 Urea nitrogen [Mass/Vol] 15 mg/dL 7-18 [facility] Thin prep Papanicolaou smear with manual screeningOrdered By: Dr. Olea on 01-01-2022 Thin prep Papanicolaou smear with manual screening 22 U/L 15-37 [facility] Thin prep Papanicolaou smear with manual screening 4 5-15 [facility] No Panel Informationon 12-22 [facility] Absolute lymphocyte counton 10-30-2021 Lymphocytes Auto (Unsp spec) [#/Vol] 1.44 10*3/uL 0.83-4.51 [facility] Work Phone: Basophil percentageon 2021 Basophils/100 WBC (Bld) 0.4 % 0-1 [facility] Work Phone: Bilirubin [Mass/Vol] 0.30 mg/dL 0.20-1.00 [facility] Work Phone: Comment on above: For patients on eltr ombopag therapy, use of Dimension Dahlgren TBIL is not recommended. Chloride [Moles/Vol] 103 mmol/L 98-107 [facility] Work Phone: Eosinophils/100 WBC (Bld) 2.1 % 0-5 [facility] Work Phone: Glucose [Mass/Vol] 78 mg/dL 74-106 [facility] Work Phone: Neutrophils (Bld) [#/Vol] 2.6 10*3/uL 2.0-7.7 [facility] Work Phone: Neutrophils/100 WBC (Bld) 55.4 % 47-70 [facility] Work Phone: Potassium [Moles/Vol] 4.4 mmol/L 3.5-5.1 [facility] Work Phone: Protein [Mass/Vol] 6.3 g/dL 6.4-8.2 [facility] Work Phone: Sodium [Moles/Vol] 141 mmol/L 136-145 [facility] Work Phone: WBC (Bld) [#/Vol] 4.7 10*3/uL 4.4-11.0 [facility] Work Phone: Blood erythrocytes count (nu mber/volume)on 10-30-2021 RBC (Bld) [#/Vol] 4.07 10*6/uL 4.2-5.4 [facility] Work Phone: Blood hemoglobin measurement (mass/volume)on 10-30-2021 Hemoglobin (Bld) [Mass/Vol] 12.4 g/dL 12.0-15.0 [facility] Work Phone: Blood lymphocytes/100 leukoc yteson 10-30-2021 Lymphocytes/100 WBC (Bld) 30.8 % 19-41 [facility] Work Phone: Blood monocytes/100 leukocyt eson 10-30-2021 Monocytes/100 WBC (Bld) 10.9 % 0-10 [facility] Work Phone: Blood platelet mean volumeon 10-30-2021 Platelet mean volume (Bld) [Entitic vol] 11.6 fL 6.2-12.0 [facility] Work Phone: Determination of erythrocyte mean corpuscular volume (MCV)on 10-30-2021 MCV (RBC) [Entitic vol] 95.3 fL 81-99 [facility] Work Phone: Hematocrit Auto (Bld) [Volum e fraction]on 10-30-2021 Hematocrit (Bld) [Volume fraction] 38.8 % 37-47 [facility] Work Phone: Laboratory - Chemistry and C hemistry - challengeon 10-30-2021 ALP [Catalytic activity/Vol] 94 U/L 45-117 [facility] Work Phone: ALT [Catalytic activity/Vol] 28 U/L 13-56 [facility] Work Phone: [phone] CO2 [Moles/Vol] 33.0 mmol/L 21.0-32.0 [facility] Work Phone: Globulin (S) [Mass/Vol] 3.2 g/dL 2.2-4.2 [facility] Work Phone: Urea nitrogen/Creatinine [Mass ratio] 17.7 mg/mg 10-20 [facility] Work Phone: Laboratory - Hematology and Cell countson 10-30-2021 Erythrocyte distribution width (RBC) [Entitic vol] 46.9 fL 35.1-43.9 [facility] Work Phone: [phone] Erythrocyte distribution width (RBC) [Ratio] 13.4 % 11.6-14.6 [facility] Work Phone: [phone] Immature granulocytes/100 WBC (Bld) 0.400 % 0.0-0.9 [facility] Work Phone: [phone] Comment on above: IG% - Immature Granu locytes (promyelocytes, myelocytes and metamyelocytes) > 1% indicates that a LEFT SHIFT is Present. MCH (RBC) [Entitic mass] 30.5 pg 27.0-32.0 [facility] Work Phone: [phone] Nucleated RBC/100 WBC (Bld) [Ratio] 0 % 0-5 [facility] Work Phone: [phone] MCHC Auto (RBC) [Mass/Vol]on 10-30-2021 MCHC (RBC) [Mass/Vol] 32.0 g/dL 32-36 [facility] Work Phone: No Panel Informationon 10-30 Estimated GFR (MDRD) Amer 118 mL/min >60 [facility] Work Phone: [phone] Comment on above: GFR Calc Estimated GFR (MDRD) Non-Af Amer 98 mL/min >60 [facility] Work Phone: Comment on above: Non- GFR Calc Platelets bldon 10-30-2021 Platelets (Bld) [#/Vol] 191 10*3/uL 150-450 [facility] Work Phone: [phone] Serum or plasma albumin enmanuel urement (mass/volume)on 10-30-2021 Albumin [Mass/Vol] 3.1 g/dL 3.2-5.0 [facility] Work Phone: [phone] Serum or plasma albumin/glob ulin mass ratioon 10-30-2021 Albumin/Globulin [Mass ratio] 1.0 {ratio} 0.9-2.4 [facility] Work Phone: [phone] Serum or plasma calcium enmanuel urement (mass/volume)on 10-30-2021 Calcium [Mass/Vol] 8.7 mg/dL 8.5-10.1 [facility] Work Phone: Serum or plasma creatinine m easurement (mass/volume)on 10-30-2021 Creatinine [Mass/Vol] 0.62 mg/dL 0.55-1.02 [facility] Work Phone: Comment on above: The validity of the calculated GFR & GFRAA in patients over 70 years has not been determined. Clinical correlation is essential. Serum or plasma urea nitroge n measurement (mass/volume)on 10-30-2021 Urea nitrogen [Mass/Vol] 11 mg/dL 7-18 [facility] Work Phone: Thin prep Papanicolaou smear with manual screeningon 10-30-2021 Thin prep Papanicolaou smear with manual screening 25 U/L 15-37 [facility] Work Phone: Thin prep Papanicolaou smear with manual screening 5 5-15 [facility] Work Phone: C. DIFFICILE PCRon C. difficile toxin genes PRABHA+probe Ql (Stl) Negative Negative for C. difficile toxin by PCR [facility] Gastrointestinal pathogens i dentified PRABHA+probe Nom (Stl)on 10-29-2021 Campylobacter sp DNA PRABHA+probe Nom (Unsp spec) Not detected Not Detected [facility] Salmonella sp DNA PRABHA+probe Ql (Unsp spec) Not detected Not Detected [facility] Shiga toxin stx gene PRABHA+probe Nom (Unsp spec) Not detected Not Detected [facility] Shigella sp DNA PRABHA+probe Ql (Unsp spec) Not detected Not Detected [facility] OCCULT BLD EXAM-DIAGon 10-29 Occult Blood Diagnostic Negative Negative [facility] Influenza virus A and B RNA and SARS-CoV-2 (COVID-19) N gene panel PRABHA+probe (Resp)on 10-28-2021 FLUAV RNA PRABHA+probe Ql (Unsp spec) Negative Negative for Influenza A by RT-PCR [facility] FLUBV RNA PRABHA+probe Ql (Unsp spec) Negative Negative for Influenza B by RT-PCR [facility] SARS-CoV-2 (COVID-19) RNA PRABHA+probe Ql (Resp) SARS-CoV-2 (Agent of COVID-19) Not Detected by RT-PCR or equivalent method. Not Detected [facility] No Panel Informationon 08-02 [facility] Absolute lymphocyte counton 08-01-2021 Lymphocytes Auto (Unsp spec) [#/Vol] 1.74 10*3/uL 0.83-4.51 [facility] Work Phone: Basophil percentageon 2021 Basophils/100 WBC (Bld) 0.6 % 0-1 [facility] Work Phone: Bilirubin [Mass/Vol] 0.30 mg/dL 0.20-1.00 [facility] Work Phone: Comment on above: For patients on eltr ombopag therapy, use of Dimension Dahlgren TBIL is not recommended. Chloride [Moles/Vol] 109 mmol/L 98-107 [facility] Work Phone: Eosinophils/100 WBC (Bld) 2.4 % 0-5 [facility] Work Phone: Glucose [Mass/Vol] 91 mg/dL 74-106 [facility] Work Phone: Neutrophils (Bld) [#/Vol] 2.9 10*3/uL 2.0-7.7 [facility] Work Phone: Neutrophils/100 WBC (Bld) 54.8 % 47-70 [facility] Work Phone: Potassium [Moles/Vol] 4.3 mmol/L 3.5-5.1 [facility] Work Phone: Protein [Mass/Vol] 6.5 g/dL 6.4-8.2 [facility] Work Phone: Sodium [Moles/Vol] 142 mmol/L 136-145 [facility] Work Phone: WBC (Bld) [#/Vol] 5.4 10*3/uL 4.4-11.0 [facility] Work Phone: Blood erythrocytes count (nu mber/volume)on 08-01-2021 RBC (Bld) [#/Vol] 4.08 10*6/uL 4.2-5.4 [facility] Work Phone: Blood hemoglobin measurement (mass/volume)on 08-01-2021 Hemoglobin (Bld) [Mass/Vol] 12.7 g/dL 12.0-15.0 [facility] Work Phone: [phone] Blood lymphocytes/100 leukoc yteson 08-01-2021 Lymphocytes/100 WBC (Bld) 32.5 % 19-41 [facility] Work Phone: [phone] Blood monocytes/100 leukocyt eson 08-01-2021 Monocytes/100 WBC (Bld) 9.3 % 0-10 [facility] Work Phone: [phone] Blood platelet mean volumeon 08-01-2021 Platelet mean volume (Bld) [Entitic vol] 10.7 fL 6.2-12.0 [facility] Work Phone: [phone] Determination of erythrocyte mean corpuscular volume (MCV)on 08-01-2021 MCV (RBC) [Entitic vol] 98.0 fL 81-99 [facility] Work Phone: [phone] Hematocrit Auto (Bld) [Volum e fraction]on 08-01-2021 Hematocrit (Bld) [Volume fraction] 40.0 % 37-47 [facility] Work Phone: Laboratory - Chemistry and C hemistry - challengeon 08-01-2021 ALP [Catalytic activity/Vol] 119 U/L 45-117 [facility] Work Phone: [phone] ALT [Catalytic activity/Vol] 31 U/L 13-56 [facility] Work Phone: [phone] CO2 [Moles/Vol] 30.0 mmol/L 21.0-32.0 [facility] Work Phone: [phone] Globulin (S) [Mass/Vol] 3.3 g/dL 2.2-4.2 [facility] Work Phone: [phone] Urea nitrogen/Creatinine [Mass ratio] 29.7 mg/mg 10-20 [facility] Work Phone: [phone] Laboratory - Hematology and Cell countson 08-01-2021 Erythrocyte distribution width (RBC) [Entitic vol] 50.7 fL 35.1-43.9 [facility] Work Phone: [phone] Erythrocyte distribution width (RBC) [Ratio] 14.3 % 11.6-14.6 [facility] Work Phone: [phone] Immature granulocytes/100 WBC (Bld) 0.400 % 0.0-0.9 [facility] Work Phone: [phone] Comment on above: IG% - Immature Granu locytes (promyelocytes, myelocytes and metamyelocytes) > 1% indicates that a LEFT SHIFT is Present. MCH (RBC) [Entitic mass] 31.1 pg 27.0-32.0 [facility] Work Phone: [phone] Nucleated RBC/100 WBC (Bld) [Ratio] 0 % 0-5 [facility] Work Phone: [phone] MCHC Auto (RBC) [Mass/Vol]on 08-01-2021 MCHC (RBC) [Mass/Vol] 31.8 g/dL 32-36 [facility] Work Phone: [phone] No Panel Informationon 08-01 Estimated GFR (MDRD) Amer 130 mL/min >60 [facility] Work Phone: [phone] Comment on above: GFR Calc Estimated GFR (MDRD) Non-Af Amer 107 mL/min >60 [facility] Work Phone: [phone] Comment on above: Non- GFR Calc Platelets bldon 08-01-2021 Platelets (Bld) [#/Vol] 218 10*3/uL 150-450 [facility] Work Phone: [phone] Serum or plasma albumin enmanuel urement (mass/volume)on 08-01-2021 Albumin [Mass/Vol] 3.2 g/dL 3.2-5.0 [facility] Work Phone: [phone] Serum or plasma albumin/glob ulin mass ratioon 08-01-2021 Albumin/Globulin [Mass ratio] 1.0 {ratio} 0.9-2.4 [facility] Work Phone: Serum or plasma calcium enmanuel urement (mass/volume)on 08-01-2021 Calcium [Mass/Vol] 8.9 mg/dL 8.5-10.1 [facility] Work Phone: Serum or plasma creatinine m easurement (mass/volume)on 08-01-2021 Creatinine [Mass/Vol] 0.57 mg/dL 0.55-1.02 [facility] Work Phone: Comment on above: The validity of the calculated GFR & GFRAA in patients over 70 years has not been determined. Clinical correlation is essential. Serum or plasma urea nitroge n measurement (mass/volume)on 08-01-2021 Urea nitrogen [Mass/Vol] 17 mg/dL 7-18 [facility] Work Phone: Thin prep Papanicolaou smear with manual screeningon 08-01-2021 Thin prep Papanicolaou smear with manual screening 26 U/L 15-37 [facility] Work Phone: Thin prep Papanicolaou smear with manual screening 3 5-15 [facility] Work Phone: UA DIP, URINE (POC)on 2021 BILIRUBIN UA (POCT) Negative Negative [facility] CLARITY UA (POCT) [facility] COLOR UA (POCT) Yellow [facility] GLUCOSE UA (POCT) Negative Negative mg/dL [facility] HEMOGLOBIN/BLOOD UA (POCT) Negative Negative [facility] KETONE UA (POCT) Negative Negative mg/dL [facility] LEUKOCYTES UA (POCT) Negative Negative [facility] NITRITE UA (POCT) Negative Negative [facility] PH UA (POCT) 7.0 4.5 - 8.0 [facility] Protein Ql (U) Negative Negative mg/dL [facility] SPECIFIC GRAVITY UA (POCT) 1.010 1.005 - 1.030 [facility] UROBILINOGEN UA (POCT) 0.2 E.U./dL Normal E.U./dL [facility] XR FOOT GENERAL 3V AP/LAT/OB L LEFTon 07-20-[address] [facility] Foot - left AP and [...] Impression: 1. No acute fracture or dislocation. 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 Operator: [email or web address] Transcribe Date/Time: Jul 20 2021 3:12P Dictated by : ESTRELLITA CHAVEZ MD This examination was interpreted and the report reviewed and electronically signed by: ESTRELLTIA CHAVEZ MD on Jul 20 2021 3:16PM [...] Impression: 1. No acute fracture or dislocation. 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 Operator: PSCB Transcribe Date/Time: Jul 20 2021 3:12P Dictated by : ESTRELLITA CHAVEZ MD This examination was interpreted and the report reviewed and electronically signed by: ESTRELLITA CHAVEZ MD on Jul 20 2021 3:16PM EST [facility] Radiology Study observation (narrative) [facility] XR Foot - left AP and Latera l and obliqueOrdered By: Ccf Provider on 07-20-2021 [facility] XR KNEE POST OP 3V AP/LAT/ME RCHANT BILATERALon 07-17-2021 [facility] No Panel Informationon 06-09 Radiology Study observation (narrative) [facility] UA DIP, URINE (POC)on 2021 BILIRUBIN UA (POCT) Negative Negative [facility] CLARITY UA (POCT) [facility] COLOR UA (POCT) Yellow [facility] GLUCOSE UA (POCT) Negative Negative mg/dL [facility] HEMOGLOBIN/BLOOD UA (POCT) Trace-intact Abnormal Negative [facility] KETONE UA (POCT) Negative Negative mg/dL [facility] LEUKOCYTES UA (POCT) Trace Abnormal Negative [facility] NITRITE UA (POCT) Negative Negative [facility] PH UA (POCT) 7.5 4.5 - 8.0 [facility] Protein Ql (U) Negative Negative mg/dL [facility] SPECIFIC GRAVITY UA (POCT) 1.010 1.005 - 1.030 [facility] UROBILINOGEN UA (POCT) 0.2 E.U./dL Normal E.U./dL [facility] XR Ribs - left Views and [address] st PAon 06-09-2021 IMPRESSION: No acute radiographic abnormality. 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 Operator: JAIME Transcribe Date/Time: Jun 09 2021 4:24P Dictated by : ESTRELLITA CHAVEZ MD This examination was interpreted and the report reviewed and electronically signed by: ESTRELLITA CHAVEZ MD on Jun 09 2021 4:27PM [facility] DIVISION OF RADIOLOGY * * *Final Report* [...] No acute fracture DIVISION [facility] RADIOLOGY [facility] * * *Final Report* * [...] fracture IMPRESSION IMPRESSION: No acute radiographic abnormality. 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 DIVISION OF RADIOLOGY Provider, Fat[facility]ah [facility] - 06/09/2021 * * *Final Report* * [...] degenerative changes with multilevel disc space narrowing. 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[employer] Operator: JAIME Transcribe Date/Time: Jun 09 2021 4:30P Dictated by : EMRE NARANJO MD This examination was interpreted and the report reviewed and electronically signed by: EMRE NARANJO MD on Jun 09 2021 4:32PM [facility] XR Hand - bilateral PA and L ateral and Obliqueon 05-02-2021 IMPRESSION: 1. 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[employer] Operator: [facility] Transcribe Date/Time: May 02 2021 4:50P Dictated by : STACI ROJO MD This examination was interpreted and the report reviewed and electronically signed by: STACI ROJO MD on May 02 2021 4:52PM [facility] DIVISION OF RADIOLOGY * * *Final Report* [...] MCP joints. DIVISION OF RADIOLOGY Provider, Fatimah [facility] - 05/02/2021 * * *Final Report* * [...] nonerosive degenerative changes of the bilateral hands. 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Machine Operator: JAIME Transcribe Date/Time: May 02 2021 4:50P Dictated by : STACI ROJO MD This examination was interpreted and the report reviewed and electronically signed by: STACI ROJO MD on May 02 2021 4:52PM EST [facility] Radiology Study observation (narrative) [facility] XR Hand - bilateral PA and L ateral and ObliqueOrdered By: Ccf Provider on 05-02-2021 [facility] No Panel Informationon 04-10 Radiology Study observation (narrative) [facility] XR Chest PA and Lateralon IMPRESSION: No acute radiographic abnormality. 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Machine Operator: JAIME Transcribe Date/Time: Apr 10 2021 [...] the thoracic spine. DIVISION OF RADIOLOGY [facility] - 04/10/[facility]21 * * *Final Report* * [...] spine. IMPRESSION IMPRESSION: No acute radiographic abnormality. 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Machine Operator: JAIME Transcribe Date/Time: Apr 10 2021 3:30P Dictated by : RAUL MUNSON MD This examination was interpreted and the report reviewed and electronically signed by: RAUL MUNSON MD on Apr 10 2021 3:31PM EST [facility] XR Pelvis and Hip - left AP and Lateral frogon 04-10-2021 IMPRESSION: Mild hip degenerative changes. 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Machine Operator: JAIME Transcribe Date/Time: Apr 10 2021 [...] lower lumbar spine. [facility]OLOGY [facility] * * *Final Report* * [...] spine. IMPRESSION IMPRESSION: Mild hip degenerative changes. 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Machine Operator: PSCB Transcribe Date/Time: Apr 10 2021 3:32P Dictated by : RAUL MUNSON MD This examination was interpreted and the report reviewed and electronically signed by: RAUL MUNSON MD on Apr 10 2021 3:32PM EST [facility] XR Pelvis and Hip - left AP and Lateral frogOrdered By: Ccf Provider on 04-10-2021 [facility] Laboratory - Microbiology an d Antimicrobial susceptibilityon 03-25-2021 SARS-CoV-2 (COVID-19) RNA PRABHA+probe Ql (Unsp spec) Detected Not Detect [facility] Work Phone: Comment on above: Normal Reference [...] and Lateralon IMPRESSION: No acute radiographic abnormality. 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Machine Operator: JAIME Transcribe Date/Time: Oct 03 2020 1:41P Dictated by : EMRE NARANJO MD This examination was interpreted and the report reviewed and electronically signed by: EMRE NARANJO MD on Oct 03 2020 1:42PM [facility] DIVISION OF RADIOLOGY * * *Final Report* [...] spine. IMPRESSION IMPRESSION: No acute radiographic abnormality. 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Machine Operator: JAIME Transcribe Date/Time: Oct 03 2020 1:41P Dictated by : EMRE NARANJO MD This examination was interpreted and the report reviewed and electronically signed by: EMRE NARANJO MD on Oct 03 2020 1:42PM EST [facility] Radiology Study observation (narrative) [facility] XR Chest PA and LateralOrder ed By: Ccf Provider on 10-03-2020 [facility] Large Joint Arthro/Inj: L kn ee joint [facility] Vital Signs Date Time Vital Sign Value Performing Clinician Wendy snyder 08-08-2024 14:07-0400 Body mass index (BMI) [Ratio] 25.11 kg/m2 America Moomaw SITE IDENTIFICATION SPECIALIST.BACKWINDER Work Phone: [facility] 08-08-2024 14:07-0400 Body temperature 97.7 [degF] America Moomaw SITE IDENTIFICATION SPECIALIST.BACKWINDER Work Phone: [facility] 08-08-2024 14:07-0400 Body weight 54.5 kg America Moomaw SITE IDENTIFICATION SPECIALIST.BACKWINDER Work Phone: [facility] 08-08-2024 14:07-0400 Diastolic blood pressure 72 mm[Hg] America Moomaw SITE IDENTIFICATION SPECIALIST.BACKWINDER Work Phone: [facility] 08-08-2024 14:07-0400 Heart rate 57 /min America Moomaw SITE IDENTIFICATION SPECIALIST.BACKWINDER Work Phone: [facility] 08-08-2024 14:07-0400 Respiratory rate 19 /min America Moomaw SITE IDENTIFICATION SPECIALIST.BACKWINDER Work Phone: [facility] 08-08-2024 14:07-0400 SaO2% (BldA) [Mass fraction] 97 % America Moomaw SITE IDENTIFICATION SPECIALIST.BACKWINDER Work Phone: [facility] 08-08-2024 14:07-0400 Systolic blood pressure 140 mm[Hg] America Moomaw SITE IDENTIFICATION SPECIALIST.BACKWINDER Work Phone: [facility] 06-30-2024 15:50-0400 Body mass index (BMI) [Ratio] 25.57 kg/m2 Lani Clutter PA-C Work Phone: [facility] 06-30-2024 15:50-0400 Body temperature 98.91 [degF] Lani Clutter PA-C Work Phone: [facility] 06-30-2024 15:50-0400 Body weight 55.5 kg Lani Clutter PA-C Work Phone: [facility] 06-30-2024 15:50-0400 Diastolic blood pressure 68 mm[Hg] Lani Clutter PA-C Work Phone: [facility] 06-30-2024 15:50-0400 Heart rate 66 /min Lani Clutter PA-C Work Phone: [facility] 06-30-2024 15:50-0400 Respiratory rate 16 /min Lani Clutter PA-C Work Phone: [facility] 06-30-2024 15:50-0400 SaO2% (BldA) [Mass fraction] 96 % Lani Clutter PA-C Work Phone: [facility] 06-30-2024 15:50-0400 Systolic blood pressure 112 mm[Hg] Lani Clutter PA-C Work Phone: [facility] 06-08-2024 11:45-0400 Body mass index (BMI) [Ratio] 24.87 kg/m2 Edenilson Nicholson DO Work Phone: [facility] 06-08-2024 11:45-0400 Body temperature 97 [degF] Edenilson Nicholson DO Work Phone: [facility] 06-08-2024 11:45-0400 Body weight 53.98 kg Edenilson Nicholson DO Work Phone: [facility] 06-08-2024 11:45-0400 Diastolic blood pressure 80 mm[Hg] Edenilson Nicholson DO Work Phone: [facility] 06-08-2024 11:45-0400 Heart rate 60 /min Edenilson Nicholson DO Work Phone: [facility] 06-08-2024 11:45-0400 Respiratory rate 16 /min Edenilson Nicholson DO Work Phone: [facility] 06-08-2024 11:45-0400 Systolic blood pressure 120 mm[Hg] Edenilson Nicholson DO Work Phone: [facility] 06-02-2024 11:07-0400 Body mass index (BMI) [Ratio] 24.92 kg/m2 Angeline Cory SITE IDENTIFICATION SPECIALIST.BACKWINDER Work Phone: [facility] 06-02-2024 11:07-0400 Body temperature 97.3 [degF] Angeline Cory SITE IDENTIFICATION SPECIALIST.BACKWINDER Work Phone: [facility] 06-02-2024 11:07-0400 Body weight 54.09 kg Angeline Cory SITE IDENTIFICATION SPECIALIST.BACKWINDER Work Phone: [facility] [facility] 06[facility] 11:07-0400 Diastolic blood pressure 72 mm[Hg] Angeline Cory SITE IDENTIFICATION SPECIALIST.BACKWINDER Work Phone: [facility] 06-02-2024 11:07-0400 Heart rate 51 /min Angeline Monterroso SITE IDENTIFICATION SPECIALIST.BACKWINDER Work Phone: [facility] 06-02-2024 11:07-0400 SaO2% (BldA) [Mass fraction] 99 % Angeline Cory SITE IDENTIFICATION SPECIALIST.BACKWINDER Work Phone: [facility] 06-02-2024 11:07-0400 Systolic blood pressure 120 mm[Hg] Angeline Monterroso SITE IDENTIFICATION SPECIALIST.BACKWINDER Work Phone: [facility] 05-06-2024 10:16-0500 Body mass index (BMI) [Ratio] 25.41 kg/m2 Kandi Park SITE IDENTIFICATION SPECIALIST.BACKWINDER Work Phone: [facility] 05-06-2024 10:16-0500 Body temperature 98.2 [degF] Kandi Park SITE IDENTIFICATION SPECIALIST.BACKWINDER Work Phone: [facility] 05-06-2024 10:16-0500 Body weight 55.16 kg Kandi Park SITE IDENTIFICATION SPECIALIST.BACKWINDER Work Phone: [facility] 05-06-2024 10:16-0500 Diastolic blood pressure 62 mm[Hg] Kandi Park SITE IDENTIFICATION SPECIALIST.BACKWINDER Work Phone: [facility] 05-06-2024 10:16-0500 Heart rate 54 /min Kandi Park SITE IDENTIFICATION SPECIALIST.BACKWINDER Work Phone: [facility] 05-06-2024 10:16-0500 Respiratory rate 12 /min Kandi Park SITE IDENTIFICATION SPECIALIST.BACKWINDER Work Phone: [facility] 05-06-2024 10:16-0500 SaO2% (BldA) [Mass fraction] 98 % Kandi Park SITE IDENTIFICATION SPECIALIST.BACKWINDER Work Phone: [facility] 05-06-2024 10:16-0500 Systolic blood pressure 110 mm[Hg] Kandi Park SITE IDENTIFICATION SPECIALIST.BACKWINDER Work Phone: [facility] 04-26-2024 12:59-0500 Body mass index (BMI) [Ratio] 25.76 kg/m2 Sherrie Gonzales SITE IDENTIFICATION SPECIALIST.BACKWINDER Work Phone: [facility] 04-26-2024 12:59-0500 Body temperature 97.9 [degF] Sherrie Goznales SITE IDENTIFICATION SPECIALIST.BACKWINDER Work Phone: [facility] 04-26-2024 12:59-0500 Body weight 55.9 kg Sherrie Gonzales SITE IDENTIFICATION SPECIALIST.BACKWINDER Work Phone: [facility] 04-26-2024 12:59-0500 Diastolic blood pressure 68 mm[Hg] Sherrie Gonzales SITE IDENTIFICATION SPECIALIST.BACKWINDER Work Phone: [facility] 04-26-2024 12:59-0500 Heart rate 60 /min Sherrie Gonzales SITE IDENTIFICATION SPECIALIST.BACKWINDER Work Phone: [facility] 04-26-2024 12:59-0500 Respiratory rate 20 /min Sherrie Gonzales SITE IDENTIFICATION SPECIALIST.BACKWINDER Work Phone: [facility] 04-26-2024 12:59-0500 SaO2% (BldA) [Mass fraction] 97 % Sherrie Gonzales SITE IDENTIFICATION SPECIALIST.BACKWINDER Work Phone: [facility] 04-26-2024 12:59-0500 Systolic blood pressure 120 mm[Hg] Sherrie Gonzales SITE IDENTIFICATION SPECIALIST.BACKWINDER Work Phone: [facility] 04-15-2024 12:23-0500 Body mass index (BMI) [Ratio] 25.67 kg/m2 To Sibley MD Work Phone: [facility] 04-15-2024 12:23-0500 Body temperature 98.2 [degF] To Sibley MD Work Phone: [facility] 04-15-2024 12:23-0500 Body weight 55.7 kg To Sibley MD Work Phone: [facility] 04-15-2024 12:23-0500 Diastolic blood pressure 62 mm[Hg] To Sibley MD Work Phone: [facility] 04-15-2024 12:23-0500 Heart rate 54 /min To Sibley MD Work Phone: [facility] 04-15-2024 12:23-0500 Respiratory rate 16 /min To Sibley MD Work Phone: [facility] 04-15-2024 12:23-0500 SaO2% (BldA) [Mass fraction] 98 % To Sibley MD Work Phone: [facility] 04-15-2024 12:23-0500 Systolic blood pressure 128 mm[Hg] To Sibley MD Work Phone: [facility] 03-25-2024 11:04-0500 Body mass index (BMI) [Ratio] 25.76 kg/m2 Angeline Cory SITE IDENTIFICATION SPECIALIST.BACKWINDER Work Phone: [facility] 03-25-2024 11:04-0500 Body weight 55.9 kg Angeline Cory SITE IDENTIFICATION SPECIALIST.BACKWINDER Work Phone: [facility] 03-25-2024 11:04-0500 Diastolic blood pressure 64 mm[Hg] Angeline Cory SITE IDENTIFICATION SPECIALIST.BACKWINDER Work Phone: [facility] 03-25-2024 11:04-0500 Heart rate 53 /min Angeline Cory SITE IDENTIFICATION SPECIALIST.BACKWINDER Work Phone: [facility] 03-25-2024 11:04-0500 Respiratory rate 16 /min Angeline Cory SITE IDENTIFICATION SPECIALIST.BACKWINDER Work Phone: [facility] 03-25-2024 11:04-0500 SaO2% (BldA) [Mass fraction] 99 % Angeline Cory SITE IDENTIFICATION SPECIALIST.BACKWINDER Work Phone: [facility] 03-25-2024 11:04-0500 Systolic blood pressure 130 mm[Hg] Angeline Cory SITE IDENTIFICATION SPECIALIST.BACKWINDER Work Phone: [facility] 01-25-2024 11:39-0500 Body mass index (BMI) [Ratio] 25.34 kg/m2 America Moomaw SITE IDENTIFICATION SPECIALIST.BACKWINDER Work Phone: [facility] 01-25-2024 11:39-0500 Body temperature 97.5 [degF] America Moomaw SITE IDENTIFICATION SPECIALIST.BACKWINDER Work Phone: [facility] 01-25-2024 11:39-0500 Body weight 55 kg America Moomaw SITE IDENTIFICATION SPECIALIST.BACKWINDER Work Phone: [facility] 01-25-2024 11:39-0500 Diastolic blood pressure 82 mm[Hg] America Moomaw SITE IDENTIFICATION SPECIALIST.BACKWINDER Work Phone: [facility] 01-25-2024 11:39-0500 Heart rate 63 /min America Moomaw SITE IDENTIFICATION SPECIALIST.BACKWINDER Work Phone: [facility] 01-25-2024 11:39-0500 Respiratory rate 18 /min America Moomaw SITE IDENTIFICATION SPECIALIST.BACKWINDER Work Phone: [facility] 01-25-2024 11:39-0500 SaO2% (BldA) [Mass fraction] 97 % America Moomaw SITE IDENTIFICATION SPECIALIST.BACKWINDER Work Phone: [facility] 01-25-2024 11:39-0500 Systolic blood pressure 146 mm[Hg] America Moomaw SITE IDENTIFICATION SPECIALIST.BACKWINDER Work Phone: [facility] 01-22-2024 10:45-0500 Body mass index (BMI) [Ratio] 25.07 kg/m2 Edenilson Nicholson DO Work Phone: [facility] 01-22-2024 10:45-0500 Body temperature 96.21 [degF] Edenilson Nicholson DO Work Phone: [facility] 01-22-2024 10:45-0500 Body weight 54.4 kg Edenilson Nicholson DO Work Phone: [facility] 01-22-2024 10:45-0500 Diastolic blood pressure 72 mm[Hg] Edenilson Nicholson DO Work Phone: [facility] 01-22-2024 10:45-0500 Heart rate 60 /min Edenilson Nicholson DO Work Phone: [facility] 01-22-2024 10:45-0500 Respiratory rate 16 /min Edenilson Nicholson DO Work Phone: [facility] 01-22-2024 10:45-0500 Systolic blood pressure 128 mm[Hg] Edenilson Nicholson DO Work Phone: [facility] 01-09-2024 10:11-0500 Body mass index (BMI) [Ratio] 25.48 kg/m2 Angeline Cory SITE IDENTIFICATION SPECIALIST.BACKWINDER Work Phone: [facility] 01-09-2024 10:11-0500 Body temperature 97 [degF] Angeline Cory SITE IDENTIFICATION SPECIALIST.BACKWINDER Work Phone: [facility] 01-09-2024 10:11-0500 Body weight 55.3 kg Angeline Cory SITE IDENTIFICATION SPECIALIST.BACKWINDER Work Phone: [facility] 01-09-2024 10:11-0500 Diastolic blood pressure 58 mm[Hg] Angeline Cory SITE IDENTIFICATION SPECIALIST.BACKWINDER Work Phone: [facility] 01-09-2024 10:11-0500 Heart rate 55 /min Angeline Cory SITE IDENTIFICATION SPECIALIST.BACKWINDER Work Phone: [facility] 01-09-2024 10:11-0500 Respiratory rate 16 /min Angeline Cory SITE IDENTIFICATION SPECIALIST.BACKWINDER Work Phone: [facility] 01-09-2024 10:11-0500 SaO2% (BldA) [Mass fraction] 98 % Angeline Cory SITE IDENTIFICATION SPECIALIST.BACKWINDER Work Phone: [facility] 01-09-2024 10:11-0500 Systolic blood pressure 102 mm[Hg] Angeline Cory SITE IDENTIFICATION SPECIALIST.BACKWINDER Work Phone: [facility] 01-03-2024 11:58-0400 Body mass index (BMI) [Ratio] 26.08 kg/m2 Kathryn Pearson SITE IDENTIFICATION SPECIALIST.BACKWINDER Work Phone: [facility] 01-03-2024 11:58-0400 Body temperature 97.11 [degF] Kathryn Pearson SITE IDENTIFICATION SPECIALIST.BACKWINDER Work Phone: [facility] 01-03-2024 11:58-0400 Body weight 56.6 kg Kathryn Pearson SITE IDENTIFICATION SPECIALIST.BACKWINDER Work Phone: [facility] 01-03-2024 11:58-0400 Diastolic blood pressure 73 mm[Hg] Kathryn Pearson SITE IDENTIFICATION SPECIALIST.BACKWINDER Work Phone: [facility] 01-03-2024 11:58-0400 Heart rate 50 /min Kathryn Pearson SITE IDENTIFICATION SPECIALIST.BACKWINDER Work Phone: [facility] 01-03-2024 11:58-0400 Respiratory rate 18 /min Kathryn Pearson SITE IDENTIFICATION SPECIALIST.BACKWINDER Work Phone: [facility] 01-03-2024 11:58-0400 SaO2% (BldA) [Mass fraction] 99 % Kathryn Pearson SITE IDENTIFICATION SPECIALIST.BACKWINDER Work Phone: [facility] 01-03-2024 11:58-0400 Systolic blood pressure 151 mm[Hg] Kathryn Pearson SITE IDENTIFICATION SPECIALIST.BACKWINDER Work Phone: [facility] 12-24-2023 17:17-0400 Body mass index (BMI) [Ratio] 25.94 kg/m2 Abigail Howelller-Wood SITE IDENTIFICATION SPECIALIST.BACKWINDER Work Phone: [facility] 12-24-2023 17:17-0400 Body temperature 98.49 [degF] Abigail Praisler-Wood SITE IDENTIFICATION SPECIALIST.BACKWINDER Work Phone: [facility] 12-24-2023 17:17-0400 Body weight 56.3 kg Abigail Praisler-Juventino SITE IDENTIFICATION SPECIALIST.BACKWINDER Work Phone: [facility] 12-24-2023 17:17-0400 Diastolic blood pressure 80 mm[Hg] Abigail Praisler-Wood SITE IDENTIFICATION SPECIALIST.BACKWINDER Work Phone: [facility] 12-24-2023 17:17-0400 Heart rate 60 /min Abigail Praisler-Wood SITE IDENTIFICATION SPECIALIST.BACKWINDER Work Phone: [facility] 12-24-2023 17:17-0400 Respiratory rate 16 /min Abigail Praisler-Wood SITE IDENTIFICATION SPECIALIST.BACKWINDER Work Phone: [facility] 12-24-2023 17:17-0400 SaO2% (BldA) [Mass fraction] 96 % Abigailjosi Olveraisler-Wood SITE IDENTIFICATION SPECIALIST.BACKWINDER Work Phone: [facility] 12-24-2023 17:17-0400 Systolic blood pressure 120 mm[Hg] Abigail Balderas SITE IDENTIFICATION SPECIALIST.BACKWINDER Work Phone: [facility] 12-05-2023 10:47-0400 Body mass index (BMI) [Ratio] 24.97 kg/m2 Kinga Suppan SITE IDENTIFICATION SPECIALIST.BACKWINDER Work Phone: [facility] 12-05-2023 10:47-0400 Body weight 54.2 kg Kinga Suppan SITE IDENTIFICATION SPECIALIST.BACKWINDER Work Phone: [facility] 12-05-2023 10:47-0400 Diastolic blood pressure 62 mm[Hg] Kinga Suppan SITE IDENTIFICATION SPECIALIST.BACKWINDER Work Phone: [facility] 12-05-2023 10:47-0400 Heart rate 62 /min Kinga Suppan SITE IDENTIFICATION SPECIALIST.BACKWINDER Work Phone: [facility] 12-05-2023 10:47-0400 Respiratory rate 14 /min Kinga Suppan SITE IDENTIFICATION SPECIALIST.BACKWINDER Work Phone: [facility] 12-05-2023 10:47-0400 SaO2% (BldA) [Mass fraction] 98 % Kinga Suppan SITE IDENTIFICATION SPECIALIST.BACKWINDER Work Phone: [facility] 12-05-2023 10:47-0400 Systolic blood pressure 120 mm[Hg] Kinga Suppan SITE IDENTIFICATION SPECIALIST.BACKWINDER Work Phone: [facility] 11-25-2023 12:41-0400 Body mass index (BMI) [Ratio] 24.87 kg/m2 Kinga Suppan SITE IDENTIFICATION SPECIALIST.BACKWINDER Work Phone: [facility] 11-25-2023 12:41-0400 Body temperature 97.9 [degF] Kinga Suppan SITE IDENTIFICATION SPECIALIST.BACKWINDER Work Phone: [facility] 11-25-2023 12:41-0400 Body weight 53.98 kg Kinga Suppan SITE IDENTIFICATION SPECIALIST.BACKWINDER Work Phone: [facility] 11-25-2023 12:41-0400 Diastolic blood pressure 64 mm[Hg] Kinga Suppan SITE IDENTIFICATION SPECIALIST.BACKWINDER Work Phone: [facility] 11-25-2023 12:41-0400 Heart rate 62 /min Kinga Suppan SITE IDENTIFICATION SPECIALIST.BACKWINDER Work Phone: [facility] 11-25-2023 12:41-0400 SaO2% (BldA) [Mass fraction] 97 % Kinga Suppan SITE IDENTIFICATION SPECIALIST.BACKWINDER Work Phone: [facility] 11-25-2023 12:41-0400 Systolic blood pressure 120 mm[Hg] Kinga Suppan SITE IDENTIFICATION SPECIALIST.BACKWINDER Work Phone: [facility] 11-13-2023 12:19-0400 Body mass index (BMI) [Ratio] 23.96 kg/m2 Anamaria Paul MD Work Phone: [facility] 11-13-2023 12:19-0400 Body weight 52 kg Anamaria Paul MD Work Phone: [facility] 11-13-2023 12:19-0400 Diastolic blood pressure 62 mm[Hg] Anamaria Paul MD Work Phone: [facility] 11-13-2023 12:19-0400 Heart rate 54 /min Anamaria Paul MD Work Phone: [facility] 11-13-2023 12:19-0400 Systolic blood pressure 133 mm[Hg] Anamaria Paul MD Work Phone: [facility] 10-28-2023 11:05-0400 Body mass index (BMI) [Ratio] 24.33 kg/m2 Krislyn Aberegg PA Work Phone: [facility] 10-28-2023 11:05-0400 Body temperature 98.29 [degF] Krislyn Aberegg PA Work Phone: [facility] 10-28-2023 11:05-0400 Body weight 52.8 kg Krislyn Aberegg PA Work Phone: [facility] 10-28-2023 11:05-0400 Diastolic blood pressure 60 mm[Hg] Krislyn Aberegg PA Work Phone: [facility] 10-28-2023 11:05-0400 Heart rate 60 /min Krislyn Aberegg PA Work Phone: [facility] 10-28-2023 11:05-0400 Respiratory rate 21 /min Krislyn Aberegg PA Work Phone: [facility] 10-28-2023 11:05-0400 SaO2% (BldA) [Mass fraction] 97 % Krislyn Aberegg PA Work Phone: [facility] 10-28-2023 11:05-0400 Systolic blood pressure 120 mm[Hg] Krislyn Aberegg PA Work Phone: [facility] 10-22-2023 11:42-0400 Diastolic blood pressure 76 mm[Hg] Edenilson Nicholson DO Work Phone: [facility] 10-22-2023 11:42-0400 Systolic blood pressure 130 mm[Hg] Edenilson Nicholson DO Work Phone: [facility] 10-22-2023 11:39-0400 Body mass index (BMI) [Ratio] 25.08 kg/m2 Edenilson Nicholson DO Work Phone: [facility] 10-22-2023 11:39-0400 Body temperature 97 [degF] Edenilson Nicholson DO Work Phone: [facility] 10-22-2023 11:39-0400 Body weight 54.43 kg Edenilson Nicholson DO Work Phone: [facility] 10-22-2023 11:39-0400 Heart rate 60 /min Edenilson Nicholson DO Work Phone: [facility] 10-22-2023 11:39-0400 Respiratory rate 20 /min Edenilson Nicholson DO Work Phone: [facility] 09-18-2023 18:15-0400 Body mass index (BMI) [Ratio] 24.87 kg/m2 Edenilson Nicholson DO Work Phone: [facility] 09-18-2023 18:15-0400 Body temperature 98.01 [degF] Edenilson Nicholson DO Work Phone: [facility] 09-18-2023 18:15-0400 Body weight 53.98 kg Edenilson Nicholson DO Work Phone: [facility] 09-18-2023 18:15-0400 Diastolic blood pressure 60 mm[Hg] Edenilson Nicholson DO Work Phone: [facility] 09-18-2023 18:15-0400 Heart rate 60 /min Edenislon Nicholson DO Work Phone: [facility] 09-18-2023 18:15-0400 Respiratory rate 16 /min Edenilson Nicholson DO Work Phone: [facility] 09-18-2023 18:15-0400 Systolic blood pressure 120 mm[Hg] Edenilson Nicholson DO Work Phone: [facility] 07-16-2023 14:32-0400 Body mass index (BMI) [Ratio] 25.46 kg/m2 Angeline Cory SITE IDENTIFICATION SPECIALIST.BACKWINDER Work Phone: [facility] 07-16-2023 14:32-0400 Body weight 55.25 kg Angeline Kleinman SITE IDENTIFICATION SPECIALIST.BACKWINDER Work Phone: [facility] 07-16-2023 14:32-0400 Diastolic blood pressure 76 mm[Hg] Angeline Cory SITE IDENTIFICATION SPECIALIST.BACKWINDER Work Phone: [facility] 07-16-2023 14:32-0400 Heart rate 49 /min Angeline Cory SITE IDENTIFICATION SPECIALIST.BACKWINDER Work Phone: [facility] 07-16-2023 14:32-0400 Respiratory rate 16 /min Angeline Cory SITE IDENTIFICATION SPECIALIST.BACKWINDER Work Phone: [facility] 07-16-2023 14:32-0400 SaO2% (BldA) [Mass fraction] 98 % Angeline Monterroso SITE IDENTIFICATION SPECIALIST.BACKWINDER Work Phone: [facility] 07-16-2023 14:32-0400 Systolic blood pressure 122 mm[Hg] Angeline Monterroso SITE IDENTIFICATION SPECIALIST.BACKWINDER Work Phone: [facility] 07-04-2023 13:53-0400 Body mass index (BMI) [Ratio] 24.87 kg/m2 Chapis Podlogar SITE IDENTIFICATION SPECIALIST.BACKWINDER Work Phone: [facility] 07-04-2023 13:53-0400 Body temperature 98.49 [degF] Chapis Podlogar SITE IDENTIFICATION SPECIALIST.BACKWINDER Work Phone: [facility] 07-04-2023 13:53-0400 Body weight 53.98 kg Chapis Podlogar SITE IDENTIFICATION SPECIALIST.BACKWINDER Work Phone: [facility] 07-04-2023 13:53-0400 Diastolic blood pressure 64 mm[Hg] Chapis Podlogar SITE IDENTIFICATION SPECIALIST.BACKWINDER Work Phone: [facility] 07-04-2023 13:53-0400 Heart rate 54 /min Chapis Podlogar SITE IDENTIFICATION SPECIALIST.BACKWINDER Work Phone: [facility] 07-04-2023 13:53-0400 Respiratory rate 16 /min Chapis Podlogar SITE IDENTIFICATION SPECIALIST.BACKWINDER Work Phone: [facility] 07-04-2023 13:53-0400 SaO2% (BldA) [Mass fraction] 98 % Chapis Podlogar SITE IDENTIFICATION SPECIALIST.BACKWINDER Work Phone: [facility] 07-04-2023 13:53-0400 Systolic blood pressure 118 mm[Hg] Chapis Podlogar SITE IDENTIFICATION SPECIALIST.BACKWINDER Work Phone: [facility] 06-27-2023 14:26-0400 Body mass index (BMI) [Ratio] 24.79 kg/m2 Angeline Monterroso SITE IDENTIFICATION SPECIALIST.BACKWINDER Work Phone: [facility] 06-27-2023 14:26-0400 Body temperature 98.2 [degF] Angeline Monterroso SITE IDENTIFICATION SPECIALIST.BACKWINDER Work Phone: [facility] 06-27-2023 14:26-0400 Body weight 53.8 kg Angeline Cory SITE IDENTIFICATION SPECIALIST.BACKWINDER Work Phone: [facility] 06-27-2023 14:26-0400 Diastolic blood pressure 64 mm[Hg] Angeline Cory SITE IDENTIFICATION SPECIALIST.BACKWINDER Work Phone: [facility] 06-27-2023 14:26-0400 Heart rate 56 /min Angeline Cory SITE IDENTIFICATION SPECIALIST.BACKWINDER Work Phone: [facility] 06-27-2023 14:26-0400 Respiratory rate 16 /min Angeline Cory SITE IDENTIFICATION SPECIALIST.BACKWINDER Work Phone: [facility] 06-27-2023 14:26-0400 SaO2% (BldA) [Mass fraction] 98 % Angeline Cory SITE IDENTIFICATION SPECIALIST.BACKWINDER Work Phone: [facility] 06-27-2023 14:26-0400 Systolic blood pressure 108 mm[Hg] Angeline Cory SITE IDENTIFICATION SPECIALIST.BACKWINDER Work Phone: [facility] 06-12-2023 11:06-0400 Body weight 52.62 kg Angeline Cory SITE IDENTIFICATION SPECIALIST.BACKWINDER Work Phone: [facility] 06-12-2023 11:06-0400 Diastolic blood pressure 72 mm[Hg] Angeline Cory SITE IDENTIFICATION SPECIALIST.BACKWINDER Work Phone: [facility] 06-12-2023 11:06-0400 Heart rate 52 /min Angeline Cory SITE IDENTIFICATION SPECIALIST.BACKWINDER Work Phone: [facility] 06-12-2023 11:06-0400 Respiratory rate 16 /min Angeline Cory SITE IDENTIFICATION SPECIALIST.BACKWINDER Work Phone: [facility] 06-12-2023 11:06-0400 SaO2% (BldA) [Mass fraction] 99 % Angeline Cory SITE IDENTIFICATION SPECIALIST.BACKWINDER Work Phone: [facility] 06-12-2023 11:06-0400 Systolic blood pressure 124 mm[Hg] Angeline Cory SITE IDENTIFICATION SPECIALIST.BACKWINDER Work Phone: [facility] 05-08-2023 08:47-0500 Body weight 53.98 kg Angeline Cory SITE IDENTIFICATION SPECIALIST.BACKWINDER Work Phone: [facility] 05-08-2023 08:47-0500 Diastolic blood pressure 72 mm[Hg] Angeline Cory SITE IDENTIFICATION SPECIALIST.BACKWINDER Work Phone: [facility] 05-08-2023 08:47-0500 Heart rate 58 /min Angeline Cory SITE IDENTIFICATION SPECIALIST.BACKWINDER Work Phone: [facility] 05-08-2023 08:47-0500 Respiratory rate 16 /min Angeline Cory SITE IDENTIFICATION SPECIALIST.BACKWINDER Work Phone: [facility] 05-08-2023 08:47-0500 SaO2% (BldA) [Mass fraction] 95 % Angeline Cory SITE IDENTIFICATION SPECIALIST.BACKWINDER Work Phone: [facility] 05-08-2023 08:47-0500 Systolic blood pressure 132 mm[Hg] Angeline Cory SITE IDENTIFICATION SPECIALIST.BACKWINDER Work Phone: [facility] 04-17-2023 17:29-0500 Body temperature 97.3 [degF] Edenilson Nicholson DO Work Phone: [facility] 04-17-2023 17:29-0500 Body weight 54.43 kg Edenilson Nicholson DO Work Phone: [facility] 04-17-2023 17:29-0500 Diastolic blood pressure 80 mm[Hg] Edenilson Nicholson DO Work Phone: [facility] 04-17-2023 17:29-0500 Heart rate 60 /min Edenilson Nicholson DO Work Phone: [facility] 04-17-2023 17:29-0500 Respiratory rate 16 /min Edenilson Nicholson DO Work Phone: [facility] 04-17-2023 17:29-0500 Systolic blood pressure 120 mm[Hg] Edenilson Nicholson DO Work Phone: [facility] 01-28-2023 13:10-0500 Body weight 54.25 kg Kandi Park SITE IDENTIFICATION SPECIALIST.BACKWINDER Work Phone: [facility] 01-28-2023 13:10-0500 Diastolic blood pressure 64 mm[Hg] Kandi Park SITE IDENTIFICATION SPECIALIST.BACKWINDER Work Phone: [facility] 01-28-2023 13:10-0500 Heart rate 60 /min Kandi Park SITE IDENTIFICATION SPECIALIST.BACKWINDER Work Phone: [facility] 01-28-2023 13:10-0500 Respiratory rate 12 /min Kandi Park SITE IDENTIFICATION SPECIALIST.BACKWINDER Work Phone: [facility] 01-28-2023 13:10-0500 Systolic blood pressure 120 mm[Hg] Kandi Park SITE IDENTIFICATION SPECIALIST.BACKWINDER Work Phone: [facility] 01-21-2023 08:54-0500 Body weight 54.43 kg Kandi Park SITE IDENTIFICATION SPECIALIST.BACKWINDER Work Phone: [facility] 01-21-2023 08:54-0500 Diastolic blood pressure 62 mm[Hg] Kandi Park SITE IDENTIFICATION SPECIALIST.BACKWINDER Work Phone: [facility] 01-21-2023 08:54-0500 Heart rate 55 /min Kandi Park SITE IDENTIFICATION SPECIALIST.BACKWINDER Work Phone: [facility] 01-21-2023 08:54-0500 Respiratory rate 14 /min Kandi Park SITE IDENTIFICATION SPECIALIST.BACKWINDER Work Phone: [facility] 01-21-2023 08:54-0500 SaO2% (BldA) [Mass fraction] 98 % Kandi Park SITE IDENTIFICATION SPECIALIST.BACKWINDER Work Phone: [facility] 01-21-2023 08:54-0500 Systolic blood pressure 120 mm[Hg] Kandi Park SITE IDENTIFICATION SPECIALIST.BACKWINDER Work Phone: [facility] 01-19-2023 12:05-0500 Blood Pressure Cuff Size DR MIRA VILLATORO DO [facility] 01-19-2023 12:05-[address] MIRA VILLATORO DO [facility] 01-19-2023 12:05-[address] MIRA VILLATORO DO [facility] 01-19-2023 12:05-0500 Body temperature 97.52 [degF] DR MIRA VILLATORO DO [facility] 01-19-2023 12:05-0500 Diastolic Blood Pressure Non-Invasive 76 mm[Hg] DR MIRA VILLATORO DO [facility] 01-19-2023 12:05-0500 Heart rate 57 /min DR MIRA VILLATORO DO [facility] 01-19-2023 12:05-0500 Respiratory rate 16 /min DR MIRA VILLATORO DO [facility] 01-19-2023 12:05-0500 Systolic Blood Pressure Non-Invasive 189 mm[Hg] DR MIRA VILLATORO DO [facility] 11-19-2022 13:06-0400 Body height 147.3 cm Mellisa Villalobos DO Work Phone: [facility] 11-19-2022 13:06-0400 Body weight 52.16 kg Mellisa Villalobos DO Work Phone: [facility] 11-14-2022 10:29-0400 Body temperature 97.11 [degF] Edenilson Nicholson DO Work Phone: [facility] 11-14-2022 10:29-0400 Body weight 52.62 kg Edenilson Nicholson DO Work Phone: [facility] 11-14-2022 10:29-0400 Diastolic blood pressure 64 mm[Hg] Edenilson Nicholson DO Work Phone: [facility] 11-14-2022 10:29-0400 Heart rate 60 /min Edenilson Nicholson DO Work Phone: [facility] 11-14-2022 10:29-0400 Respiratory rate 16 /min Edenilson Nicholson DO Work Phone: [facility] 11-14-2022 10:29-0400 Systolic blood pressure 120 mm[Hg] Edenilson Nicholson DO Work Phone: [facility] 11-13-2022 16:01-0400 Body temperature 98.01 [degF] Johnie Pendlebury SITE IDENTIFICATION SPECIALIST.BACKWINDER Work Phone: [facility] 11-13-2022 16:01-0400 Body weight 54.88 kg Johnie Pendlebury SITE IDENTIFICATION SPECIALIST.BACKWINDER Work Phone: [facility] 11-13-2022 16:01-0400 Diastolic blood pressure 64 mm[Hg] Johnie Pendlebury SITE IDENTIFICATION SPECIALIST.BACKWINDER Work Phone: [facility] 11-13-2022 16:01-0400 Heart rate 68 /min Johnie Pendlebury SITE IDENTIFICATION SPECIALIST.BACKWINDER Work Phone: [facility] 11-13-2022 16:01-0400 Respiratory rate 16 /min Johnie Pendlebury SITE IDENTIFICATION SPECIALIST.BACKWINDER Work Phone: [facility] 11-13-2022 16:01-0400 SaO2% (BldA) [Mass fraction] 100 % Johnie Pendlebury SITE IDENTIFICATION SPECIALIST.BACKWINDER Work Phone: [facility] 11-13-2022 16:01-0400 Systolic blood pressure 92 mm[Hg] Johnie Pendlebury SITE IDENTIFICATION SPECIALIST.BACKWINDER Work Phone: [facility] 10-12-2022 10:06-0400 Body weight 52.62 kg NA Rodney PA-C Work Phone: [facility] 10-12-2022 10:06-0400 Diastolic blood pressure 62 mm[Hg] NA Rodney PA-C Work Phone: [facility] 10-12-2022 10:06-0400 Heart rate 73 /min NA Rodney PA-C Work Phone: [facility] 10-12-2022 10:06-0400 Respiratory rate 14 /min NA Rodney PA-C Work Phone: [facility] 10-12-2022 10:06-0400 SaO2% (BldA) [Mass fraction] 97 % NA Rodney PA-C Work Phone: [facility] 10-12-2022 10:06-0400 Systolic blood pressure 110 mm[Hg] NA Rodney PA-C Work Phone: [facility] 09-20-2022 08:49-0400 Body temperature 97.81 [degF] NA Rodney PA-C Work Phone: [facility] 09-20-2022 08:49-0400 Body weight 51.26 kg NA Rodney PA-C Work Phone: [facility] 09-20-2022 08:49-0400 Diastolic blood pressure 66 mm[Hg] NA Rodney PA-C Work Phone: [facility] 09-20-2022 08:49-0400 Heart rate 58 /min NA Rodney PA-C Work Phone: [facility] 09-20-2022 08:49-0400 SaO2% (BldA) [Mass fraction] 96 % NA Rodney PA-C Work Phone: [facility] 09-20-2022 08:49-0400 Systolic blood pressure 94 mm[Hg] NA Rodney PA-C Work Phone: [facility] 08-01-2022 10:36-0400 Body temperature 97 [degF] Edenilson Nicholson DO Work Phone: [facility] 08-01-2022 10:36-0400 Body weight 51.71 kg Edenilson Nicholson DO Work Phone: [facility] 08-01-2022 10:36-0400 Diastolic blood pressure 60 mm[Hg] Edenilson Nicholson DO Work Phone: [facility] 08-01-2022 10:36-0400 Heart rate 60 /min Edenilson Nicholson DO Work Phone: [facility] 08-01-2022 10:36-0400 Respiratory rate 16 /min Edenilson Nicholson DO Work Phone: [facility] 08-01-2022 10:36-0400 Systolic blood pressure 90 mm[Hg] Edenilson Nicholson DO Work Phone: [facility] 07-14-2022 14:03-0400 Body temperature 97.9 [degF] Efra Stinson MD Work Phone: [facility] 07-14-2022 14:03-0400 Body weight 53.43 kg Efra Stinson MD Work Phone: [facility] 07-14-2022 14:03-0400 Diastolic blood pressure 70 mm[Hg] Efra Stinson MD Work Phone: [facility] 07-14-2022 14:03-0400 Heart rate 63 /min Efra Stinson MD Work Phone: [facility] 07-14-2022 14:03-0400 Respiratory rate 20 /min Efra Stinson MD Work Phone: [facility] 07-14-2022 14:03-0400 SaO2% (BldA) [Mass fraction] 98 % Efra Stinson MD Work Phone: [facility] 07-14-2022 14:03-0400 Systolic blood pressure 140 mm[Hg] Efra Stinson MD Work Phone: [facility] 06-27-2022 08:48-0400 Body weight 53.16 kg Angeline Monterroso APRN.BACKWINDER Work Phone: [facility] 06-27-2022 08:48-0400 Diastolic blood pressure 78 mm[Hg] Angeline Monterroso SITE IDENTIFICATION SPECIALIST.BACKWINDER Work Phone: [facility] 06-27-2022 08:48-0400 Heart rate 56 /min Angeline Cory SITE IDENTIFICATION SPECIALIST.BACKWINDER Work Phone: [facility] 06-27-2022 08:48-0400 Respiratory rate 16 /min Angeline Cory SITE IDENTIFICATION SPECIALIST.BACKWINDER Work Phone: [facility] 06-27-2022 08:48-0400 SaO2% (BldA) [Mass fraction] 100 % Angeline Cory SITE IDENTIFICATION SPECIALIST.BACKWINDER Work Phone: [facility] 06-27-2022 08:48-0400 Systolic blood pressure 130 mm[Hg] Angeline Cory SITE IDENTIFICATION SPECIALIST.BACKWINDER Work Phone: [facility] 05-10-2022 10:56-0500 Diastolic blood pressure 53 mm[Hg] Owen Rivas MD Work Phone: [facility] 05-10-2022 10:56-0500 Heart rate 57 /min Owen Rivas MD Work Phone: [facility] 05-10-2022 10:56-0500 Respiratory rate 16 /min Owen Rivas MD Work Phone: [facility] 05-10-2022 10:56-0500 SaO2% (BldA) [Mass fraction] 97 % Owen Rivas MD Work Phone: [facility] 05-10-2022 10:56-0500 Systolic blood pressure 113 mm[Hg] Owen Rivas MD Work Phone: [facility] 05-10-2022 09:30-0500 Body temperature 98.29 [degF] Owen Rivas MD Work Phone: [facility] 05-08-2022 10:29-0500 Body height 149.9 cm Nel Zayas MD Work Phone: [facility] 05-08-2022 10:29-0500 Body weight 50.8 kg Nel Zayas MD Work Phone: [facility] 05-08-2022 10:29-0500 Diastolic blood pressure 55 mm[Hg] Nel Zayas MD Work Phone: [facility] 05-08-2022 10:29-0500 Heart rate 53 /min Nel Zayas MD Work Phone: [facility] 05-08-2022 10:29-0500 Systolic blood pressure 148 mm[Hg] Nel Zayas MD Work Phone: [facility] 04-24-2022 13:37-0500 Body temperature 96.1 [degF] Edenilson Nicholson DO Work Phone: [facility] 04-24-2022 13:37-0500 Body weight 51.71 kg Edenilson Nicholson DO Work Phone: [facility] 04-24-2022 13:37-0500 Diastolic blood pressure 64 mm[Hg] Edenilson Nicholson DO Work Phone: [facility] 04-24-2022 13:37-0500 Heart rate 64 /min Edenilson Nicholson DO Work Phone: [facility] 04-24-2022 13:37-0500 Respiratory rate 16 /min Edenilson Nicholson DO Work Phone: [facility] 04-24-2022 13:37-0500 Systolic blood pressure 128 mm[Hg] Edenilson Nicholson DO Work Phone: [facility] 04-20-2022 08:49-0500 Body weight 51.35 kg Angeline Cory SITE IDENTIFICATION SPECIALIST.BACKWINDER Work Phone: [facility] 04-20-2022 08:49-0500 Diastolic blood pressure 64 mm[Hg] Angeline Cory SITE IDENTIFICATION SPECIALIST.BACKWINDER Work Phone: [facility] 04-20-2022 08:49-0500 Heart rate 54 /min Angeline Cory SITE IDENTIFICATION SPECIALIST.BACKWINDER Work Phone: [facility] 04-20-2022 08:49-0500 Respiratory rate 16 /min Angeline Cory SITE IDENTIFICATION SPECIALIST.BACKWINDER Work Phone: [facility] 04-20-2022 08:49-0500 SaO2% (BldA) [Mass fraction] 99 % Angeline Monterroso SITE IDENTIFICATION SPECIALIST.BACKWINDER Work Phone: [facility] 04-20-2022 08:49-0500 Systolic blood pressure 122 mm[Hg] Angeline Monterroso SITE IDENTIFICATION SPECIALIST.BACKWINDER Work Phone: [facility] 04-16-2022 09:48-0500 Body height 147.3 cm Mellisatrudy Saeedk DO Work Phone: [facility] 04-16-2022 09:48-0500 Body weight 52.16 kg Mellisa Griselda DO Work Phone: [facility] 04-07-2022 12:59-0500 Body temperature 97.7 [degF] Efra Stinson MD Work Phone: [facility] 04-07-2022 12:59-0500 Body weight 53.71 kg Efra Stinson MD Work Phone: [facility] 04-07-2022 12:59-0500 Diastolic blood pressure 82 mm[Hg] Efra Stinson MD Work Phone: [facility] 04-07-2022 12:59-0500 Heart rate 66 /min Efra Stinson MD Work Phone: [facility] 04-07-2022 12:59-0500 Respiratory rate 18 /min Efra Stinson MD Work Phone: [facility] 04-07-2022 12:59-0500 SaO2% (BldA) [Mass fraction] 99 % Efra Stinson MD Work Phone: [facility] 04-07-2022 12:59-0500 Systolic blood pressure 124 mm[Hg] Efra Stinson MD Work Phone: [facility] 03-05-2022 13:21-0500 Body temperature 97.5 [degF] Laisha DAVIS-Mukund Work Phone: [facility] 03-05-2022 13:21-0500 Body weight 53.07 kg Laisha DAVIS-Mukund Work Phone: [facility] 03-05-2022 13:21-0500 Diastolic blood pressure 60 mm[Hg] Laisha Athy PA-C Work Phone: [facility] 03-05-2022 13:21-0500 Heart rate 66 /min Laisha Athy PA-C Work Phone: [facility] 03-05-2022 13:21-0500 Respiratory rate 16 /min Laisha Athy PA-C Work Phone: [facility] 03-05-2022 13:21-0500 SaO2% (BldA) [Mass fraction] 100 % Laisha Athy PA-C Work Phone: [facility] 03-05-2022 13:21-0500 Systolic blood pressure 122 mm[Hg] Laisha Athy PA-C Work Phone: [facility] 02-16-2022 08:03-0500 Body height 147.3 cm Lynne Coyner SITE IDENTIFICATION SPECIALIST.BACKWINDER Work Phone: [facility] 02-16-2022 08:03-0500 Body weight 53.07 kg Lynne Coyner SITE IDENTIFICATION SPECIALIST.BACKWINDER Work Phone: [facility] 02-14-2022 09:18-0500 Body temperature 97 [degF] Edenilson Nicholson DO Work Phone: [facility] 02-14-2022 09:18-0500 Body weight 53.07 kg Edenilson Nicholson DO Work Phone: [facility] 02-14-2022 09:18-0500 Diastolic blood pressure 60 mm[Hg] Edenilson Nicholson DO Work Phone: [facility] 02-14-2022 09:18-0500 Heart rate 64 /min Edenilson Nicholson DO Work Phone: [facility] 02-14-2022 09:18-0500 Respiratory rate 16 /min Edenilson Nicholson DO Work Phone: [facility] 02-14-2022 09:18-0500 Systolic blood pressure 120 mm[Hg] Edenilson Nicholson DO Work Phone: [facility] 02-10-2022 15:23-0500 Body temperature 98.29 [degF] [facility] SITE IDENTIFICATION SPECIALIST.BACKWINDER Work Phone: [facility] 02-10-2022 15:23-0500 Body weight 54.8 [facility] SITE IDENTIFICATION SPECIALIST.BACKWINDER Work Phone: [facility] 02-10-2022 15:23-0500 Diastolic blood pressure 68 mm[Hg] Johnie Pendlebury SITE IDENTIFICATION SPECIALIST.BACKWINDER Work Phone: [facility] 02-10-2022 15:23-0500 Heart rate 58 /min [facility] SITE IDENTIFICATION SPECIALIST.BACKWINDER Work Phone: [facility] 02-10-2022 15:23-0500 Respiratory rate 18 /min [facility] SITE IDENTIFICATION SPECIALIST.BACKWINDER Work Phone: [facility] 02-10-2022 15:23-0500 SaO2% (BldA) [Mass fraction] 100 % [facility] SITE IDENTIFICATION SPECIALIST.BACKWINDER Work Phone: [facility] 02-10-2022 15:23-0500 Systolic blood pressure 112 mm[Hg] [facility] SITE IDENTIFICATION SPECIALIST.BACKWINDER Work Phone: [facility] 01-22-2022 13:50-0500 Body temperature 96.4 [degF] Edenilson Nicholson DO Work Phone: [facility] 01-22-2022 13:50-0500 Body weight 53.07 kg Edenilson Nicholson DO Work Phone: [facility] 01-22-2022 13:50-0500 Diastolic blood pressure 60 mm[Hg] Edenilson Nicholson DO Work Phone: [facility] 01-22-2022 13:50-0500 Heart rate 60 /min Edenilson Nicholson DO Work Phone: [facility] 01-22-2022 13:50-0500 Respiratory rate 16 /min Edenilson Nicholson DO Work Phone: [facility] 01-22-2022 13:50-0500 Systolic blood pressure 110 mm[Hg] Edenilson Nicholson DO Work Phone: [facility] 01-12-2022 14:07-0500 Body temperature 98.01 [degF] Claudia Jones APRN.BACKWINDER Work Phone: [facility] 01-12-2022 14:07-0500 Body weight 54.52 kg Claudia Jones APRN.BACKWINDER Work Phone: [facility] 01-12-2022 14:07-0500 Diastolic blood pressure 74 mm[Hg] Claudia Jones APRN.BACKWINDER Work Phone: [facility] 01-12-2022 14:07-0500 Heart rate 68 /min Claudia Jones APRN.BACKWINDER Work Phone: [facility] 01-12-2022 14:07-0500 Respiratory rate 16 /min Claudia Jones APRN.BACKWINDER Work Phone: [facility] 01-12-2022 14:07-0500 SaO2% (BldA) [Mass fraction] 97 % Claudia Jones APRN.BACKWINDER Work Phone: [facility] 01-12-2022 14:07-0500 Systolic blood pressure 132 mm[Hg] Claudia Jones APRN.BACKWINDER Work Phone: [facility] 12-06-2021 10:34-0400 Body height 147.3 cm uJan Lagos MD Work Phone: [facility] 12-06-2021 10:34-0400 Body temperature 97.5 [degF] Juan Lagos MD Work Phone: [facility] 12-06-2021 10:34-0400 Body weight 52.71 kg Juan Lagos MD Work Phone: [facility] 12-06-2021 10:34-0400 Diastolic blood pressure 69 mm[Hg] Juan Lagos MD Work Phone: [facility] 12-06-2021 10:34-0400 Heart rate 63 /min Juan Lagos MD Work Phone: [facility] 12-06-2021 10:34-0400 SaO2% (BldA) [Mass fraction] 100 % Juan Lagos MD Work Phone: [facility] 12-06-2021 10:34-0400 Systolic blood pressure 137 mm[Hg] Juan Lagos MD Work Phone: [facility] 12-05-2021 14:29-0400 Body temperature 96.6 [degF] Edenilson Nicholson DO Work Phone: [facility] 12-05-2021 14:29-0400 Body weight 53.07 kg Edenilson Nicholson DO Work Phone: [facility] 12-05-2021 14:29-0400 Diastolic blood pressure 60 mm[Hg] Edenilson Nicholson DO Work Phone: [facility] 12-05-2021 14:29-0400 Heart rate 56 /min Edenilson Nicholson DO Work Phone: [facility] 12-05-2021 14:29-0400 Respiratory rate 16 /min Edenilson Nicholson DO Work Phone: [facility] 12-05-2021 14:29-0400 Systolic blood pressure 116 mm[Hg] Edenilson Nicholson DO Work Phone: [facility] 10-27-2021 13:13-0400 Body weight 51.53 kg Angeline Cory SITE IDENTIFICATION SPECIALIST.BACKWINDER Work Phone: [facility] 10-27-2021 13:13-0400 Diastolic blood pressure 76 mm[Hg] Angeline Cory SITE IDENTIFICATION SPECIALIST.BACKWINDER Work Phone: [facility] 10-27-2021 13:13-0400 Heart rate 60 /min Angeline Cory SITE IDENTIFICATION SPECIALIST.BACKWINDER Work Phone: [facility] 10-27-2021 13:13-0400 Respiratory rate 16 /min Angeline Cory SITE IDENTIFICATION SPECIALIST.BACKWINDER Work Phone: [facility] 10-27-2021 13:13-0400 SaO2% (BldA) [Mass fraction] 97 % Angeline Cory SITE IDENTIFICATION SPECIALIST.BACKWINDER Work Phone: [facility] 10-27-2021 13:13-0400 Systolic blood pressure 116 mm[Hg] Angeline Cory SITE IDENTIFICATION SPECIALIST.BACKWINDER Work Phone: [facility] 09-12-2021 11:30-0400 Diastolic blood pressure 64 mm[Hg] Charissa Haagen SITE IDENTIFICATION SPECIALIST.BACKWINDER Work Phone: [facility] 09-12-2021 11:30-0400 Heart rate 51 /min Charissa Haagen SITE IDENTIFICATION SPECIALIST.BACKWINDER Work Phone: [facility] 09-12-2021 11:30-0400 Respiratory rate 18 /min Charissa Haagen SITE IDENTIFICATION SPECIALIST.BACKWINDER Work Phone: [facility] 09-12-2021 11:30-0400 SaO2% (BldA) [Mass fraction] 98 % Charissa Haagen SITE IDENTIFICATION SPECIALIST.BACKWINDER Work Phone: [facility] 09-12-2021 11:30-0400 Systolic blood pressure 128 mm[Hg] Charissa Haagen SITE IDENTIFICATION SPECIALIST.BACKWINDER Work Phone: [facility] 07-20-2021 12:10-0400 Body weight 51.71 kg Angeline Cory SITE IDENTIFICATION SPECIALIST.BACKWINDER Work Phone: [facility] 07-20-2021 12:10-0400 Diastolic blood pressure 68 mm[Hg] Angeline Cory SITE IDENTIFICATION SPECIALIST.BACKWINDER Work Phone: [facility] 07-20-2021 12:10-0400 Heart rate 59 /min Angeline Cory SITE IDENTIFICATION SPECIALIST.BACKWINDER Work Phone: [facility] 07-20-2021 12:10-0400 SaO2% (BldA) [Mass fraction] 97 % Angeline Cory SITE IDENTIFICATION SPECIALIST.BACKWINDER Work Phone: [facility] 07-20-2021 12:10-0400 Systolic blood pressure 108 mm[Hg] Angeline Monterroso SITE IDENTIFICATION SPECIALIST.BACKWINDER Work Phone: [facility] 06-27-2021 10:17-0400 Body weight 51.71 kg Edenilson Nicholson DO Work Phone: [facility] 06-27-2021 10:17-0400 Diastolic blood pressure 70 mm[Hg] Edenilson Nicholson DO Work Phone: [facility] 06-27-2021 10:17-0400 Heart rate 51 /min Edenilson Nicholson DO Work Phone: [facility] 06-27-2021 10:17-0400 Respiratory rate 14 /min Edenilson Nicholson DO Work Phone: [facility] 06-27-2021 10:17-0400 SaO2% (BldA) [Mass fraction] 99 % Edenilson Nicholson DO Work Phone: [facility] 06-27-2021 10:17-0400 Systolic blood pressure 116 mm[Hg] Edenilson Nicholson DO Work Phone: [facility] 06-09-2021 14:03-0400 Body weight 52.16 kg Charissa Haching SITE IDENTIFICATION SPECIALIST.BACKWINDER Work Phone: [facility] 06-09-2021 14:03-0400 Diastolic blood pressure 57 mm[Hg] Charissa Haagen SITE IDENTIFICATION SPECIALIST.BACKWINDER Work Phone: [facility] 06-09-2021 14:03-0400 Heart rate 50 /min Charissa Haagen SITE IDENTIFICATION SPECIALIST.BACKWINDER Work Phone: [facility] 06-09-2021 14:03-0400 Respiratory rate 12 /min Charissa Haagen SITE IDENTIFICATION SPECIALIST.BACKWINDER Work Phone: [facility] 06-09-2021 14:03-0400 SaO2% (BldA) [Mass fraction] 94 % Charissa Haagen SITE IDENTIFICATION SPECIALIST.BACKWINDER Work Phone: [facility] 06-09-2021 14:03-0400 Systolic blood pressure 136 mm[Hg] Charissa Haagen SITE IDENTIFICATION SPECIALIST.BACKWINDER Work Phone: [facility] 06-07-2021 10:01-0400 Body temperature 97.11 [degF] Efra Stinson MD Work Phone: [facility] 06-07-2021 10:01-0400 Body weight 52.44 kg Efra Stinson MD Work Phone: [facility] 06-07-2021 10:01-0400 Diastolic blood pressure 68 mm[Hg] Efra Stinson MD Work Phone: [facility] 06-07-2021 10:01-0400 Heart rate 63 /min Efra Stinson MD Work Phone: [facility] 06-07-2021 10:01-0400 Respiratory rate 18 /min Efra Stinson MD Work Phone: [facility] 06-07-2021 10:01-0400 SaO2% (BldA) [Mass fraction] 98 % Efra Stinson MD Work Phone: [facility] 06-07-2021 10:01-0400 Systolic blood pressure 114 mm[Hg] Efra Stinson MD Work Phone: [facility] Encounters Encounter Date Encounter Type Care Provider Facility Start: 08-08-2024 End: 08-08-2024 Patient encounter procedure America Mendez SITE IDENTIFICATION SPECIALIST.BACKWINDER Work Phone: [facility] Comment on above: Insect bite of face, initial encounter (Primary Dx) Start: 08-08-2024 End: 08-08-2024 Telephone encounter Edenilson Nicholson DO Work Phone: [facility] Comment on above: Patient Question Start: 08-08-2024 End: 08-08-2024 ambulatory EDENILSON NICHOLSON Facility:[facility] Start: 08-05-2024 End: 08-06-2024 Follow-up encounter Kathryn Pearson SITE IDENTIFICATION SPECIALIST.BACKWINDER Work Phone: [facility] Comment on above: Results Start: 08-04-2024 End: 08-04-2024 ambulatory KYM LEWIS Facility:[facility] Start: 08-03-2024 End: 08-03-2024 Telephone encounter Roger Romero MD Work Phone: Pain Management Comment on above: Results (Lumbar MRI) Start: 07-29-2024 ambulatory EDENILSON NICHOLSON Facil ity:[facility] Start: 07-29-2024 End: 07-29-2024 Subsequent hospital visit by physician Mri Radio [facility] (I-Stat/1.5t) Work Phone: Radiology Comment on above: Spinal stenosis of l umbar region, unspecified whether neurogenic claudication present [M48.061] Start: 07-23-2024 End: 07-23-2024 ambulatory ANGELINE MONTERROSO Facility:[facility] Start: 06-30-2024 End: 06-30-2024 Office outpatient visit 25 minutes Lani Arndt PA-C [facility] Comment on above: Sprain of ligament o f right ankle, initial encounter (Primary Dx) Start: 06-30-2024 End: 06-30-2024 Subsequent hospital visit by physician Xr [facility] [place] Work Phone: Radiology Comment on above: Sprain of ligament o f right ankle, initial encounter [S93.401A] Start: 06-30-2024 End: 06-30-2024 ambulatory EDENILSON L NICHOLSON Facility:[facility] Start: 06-26-2024 End: 06-26-2024 ambulatory Edenilson Nicholson Facility:[facility] Start: 06-24-2024 End: 06-24-2024 Follow-up encounter Edenilson Greenrison DO Work Phone: [facility] Start: 06-09-2024 End: 06-09-2024 Follow-up encounter Angeline Monterroso APRN.CNP Work Phone: [facility] Comment on above: Results Start: 06-08-2024 End: 06-08-2024 ambulatory EDENILSON L NICHOLSON Facility:[facility] Start: 06-08-2024 End: 06-08-2024 Patient encounter procedure Edenilson L Nicholson DO Work Phone: [facility] Comment on above: Hypertension, essent ial (Primary Dx); Abnormal findings in stool; JOSHUA (generalized anxiety disorder); Chronic left-sided low back pain without sciatica; Dementia without behavioral disturbance (HCC); Hyperlipidemia, mixed; Epigastric abdominal pain; IFG (impaired fasting glucose); Psoriatic arthritis (HCC) Start: 06-03-2024 End: 06-03-2024 Refill Edenilson Nicholson DO Work Phone: [facility] Comment on above: Refill Request Start: 06-02-2024 End: 06-02-2024 Subsequent hospital visit by physician Xr [facility] [place] Work Phone: Radiology Comment on above: Chronic left-sided l ow back pain without sciatica [M54.50, G89.29] Start: 06-02-2024 End: 06-02-2024 [address] [facility] Facility:[facility] Start: 06-02-2024 End: 06-02-2024 Office outpatient visit 25 minutes Angeline Monterroso SITE IDENTIFICATION SPECIALIST.BACKWINDER Work Phone: [facility] Comment on above: Chronic left-sided l ow back pain without sciatica (Primary Dx); JOSHUA (generalized anxiety disorder); Acute left-sided low back pain without sciatica; Nausea and vomiting, unspecified vomiting type; Pancreatic cyst (HCC); Left medial tibial stress syndrome, initial encounter Start: 05-15-2024 End: 05-15-2024 Emergency department patient visit EDENILSON NICHOLSON Facility:[facility] Start: 05-08-2024 End: 05-08-2024 Follow-up encounter Kandi Park SITE IDENTIFICATION SPECIALIST.BACKWINDER Work Phone: [facility] [place] Start: 05-06-2024 End: 05-06-2024 ambulatory EDENILSON SCHULTZON Facility:[facility] Start: 05-06-2024 End: 05-06-2024 Office outpatient visit 15 minutes Kandi Park SITE IDENTIFICATION SPECIALIST.BACKWINDER Work Phone: [facility] Comment on above: Urinary frequency (P rimary Dx) Start: 04-30-2024 End: 04-30-2024 ambulatory EDENILSON L NICHOLSON Facility:[facility] Start: 04-30-2024 End: 04-30-2024 Subsequent hospital visit by physician Mri Radio [facility] (I-Stat/1.5t) Work Phone: Radiology Start: 04-29-2024 End: 04-29-2024 Refill Edenilson L Nicholson DO Work Phone: [facility] [place] Comment on above: Refill Request Start: 04-27-2024 End: 04-27-2024 Follow-up encounter Sherrie Gonzales APRN.BACKWINDER Work Phone: [facility] Start: 04-27-2024 End: 04-27-2024 ambulatory EDENILSON L NICHOLSON Facility:[facility] Start: 04-27-2024 End: 04-27-2024 Subsequent hospital visit by physician Xr [facility] [place] Work Phone: Radiology Comment on above: Acute cough [R05.1] Start: 04-26-2024 End: 04-26-2024 ambulatory EDENILSON L NICHOLSON Facility:[facility] Start: 04-26-2024 End: 04-26-2024 Patient encounter procedure Sherrie Gonzales APRN.BACKWINDER Work Phone: [facility] Comment on above: Urinary frequency (P rimary Dx); Acute cough Start: 04-16-2024 End: 04-17-2024 Follow-up encounter To Sibley MD Work Phone: [facility] [place] Start: 04-15-2024 End: 04-15-2024 Telephone encounter To Sibley MD Work Phone: [facility] [place] Comment on above: Patient Update; Appo intment Start: 04-15-2024 End: 04-15-2024 ambulatory EDENILSON L NICHOLSON Facility:[facility] Start: 04-15-2024 End: 04-15-2024 Patient encounter procedure To Sibley MD Work Phone: [facility] [place] Comment on above: Productive cough (Pr imary Dx) Start: 04-06-2024 End: 04-06-2024 ambulatory Kathryn Flores PT [facility] Comment on above: Acute left-sided low back pain without sciatica Start: 04-06-2024 End: 04-06-2024 ambulatory [facility] Facility:[facility] Start: 04-02-2024 End: 04-02-2024 Refill Edenilson Nicholson DO Work Phone: [facility] [place] Comment on above: Refill Request Start: 03-25-2024 End: 03-25-2024 Telephone encounter Edenilson Schultzon DO Work Phone: [facility] [place] Comment on above: Insurance Authorizat ion Start: 03-25-2024 End: 03-25-2024 [address] [facility] Facility:[facility] Start: 03-25-2024 End: 03-25-2024 Office outpatient visit 15 minutes Angeline Monterroso SITE IDENTIFICATION SPECIALIST.BACKWINDER Work Phone: [facility] [place] Comment on above: Acute left-sided low back pain without sciatica (Primary Dx); JOSHUA (generalized anxiety disorder) Start: 03-23-2024 End: 03-23-2024 Telephone encounter Edenilson Schultzon DO Work Phone: [facility] [place] Comment on above: urine problem Start: 03-23-2024 End: 03-23-2024 Emergency department patient visit EDENILSON Fabio GREENNICHOLSON Facility:[facility] Start: 02-05-2024 End: 02-05-2024 ambulatory [facility] Facility:[facility] Start: 01-25-2024 End: 01-25-2024 ambulatory EDENILSON L BHARAT Facility:[facility] Start: 01-25-2024 End: 01-25-2024 Patient encounter procedure America Mendez SITE IDENTIFICATION SPECIALIST.BACKWINDER Work Phone: [facility] Comment on above: Mouth sore (Primary Dx) Start: 01-23-2024 End: 01-27-2024 Telephone encounter Edenilson Fabio GreenNicholson DO Work Phone: [facility] [place] Comment on above: Patient Update Start: 01-22-2024 End: 01-22-2024 ambulatory EDENILSON L NICHOLSON Facility:[facility] Start: 01-22-2024 End: 01-22-2024 Patient encounter procedure Edenilson Fabio GreenNicholson DO Work Phone: [facility] [place] Comment on above: Fungal nail infectio n (Primary Dx); Psoriatic arthritis (HCC); Hypertension, essential; JOSHUA (generalized anxiety disorder); Dementia without behavioral disturbance (HCC); Abdominal discomfort Start: 01-10-2024 End: 01-15-2024 Refill Edenilson L Nicholson DO Work Phone: [facility] [place] Comment on above: Refill Request Infection Patient Question Start: 01-09-2024 End: 01-09-2024 [address] [facility] Facility:[facility] Start: 01-09-2024 End: 01-09-2024 Office outpatient visit 40 minutes Angeline Monterroso SITE IDENTIFICATION SPECIALIST.BACKWINDER Work Phone: [facility] [place] Comment on above: Urinary frequency (P rimary Dx); Psoriatic arthritis (HCC); Open wound of right heel, subsequent encounter Start: 01-03-2024 End: 01-03-2024 ambulatory EDENILSON GREENRISON Facility:[facility] Start: 01-03-2024 End: 01-03-2024 Patient encounter procedure Kathryn Pearson SITE IDENTIFICATION SPECIALIST.BACKWINDER Work Phone: [facility] Comment on above: Urination frequency (Primary Dx); Rash Start: 01-03-2024 End: 01-03-2024 [facility] Start: 12-27-2023 End: 12-27-2023 Refill Edenilson Greenrison DO Work Phone: [facility] Comment on above: Refill Request Start: 12-24-2023 End: 12-24-2023 ambulatory EDENILSON L NICHOLSON Facility:[facility] Start: 12-24-2023 End: 12-24-2023 Patient encounter procedure Abigail Balderas SITE IDENTIFICATION SPECIALIST.BACKWINDER Work Phone: [facility] Comment on above: Urinary frequency (P rimary Dx); Skin infection Start: 12-24-2023 End: 12-24-2023 Telephone encounter Edenilson Nicholson DO Work Phone: [facility] [place] Comment on above: Patient Call Start: 12-16-2023 End: 12-16-2023 ambulatory EDENILSON NICHOLSON Facility:[facility] Start: 12-09-2023 End: 12-09-2023 ambulatory Dina Olea Facility:[facility] Start: 12-05-2023 End: 12-05-2023 ambulatory KINGA A SUPPAN Facility:[facility] Start: 12-05-2023 End: 12-05-2023 Office outpatient visit 15 minutes Kinga A Suppan SITE IDENTIFICATION SPECIALIST.BACKWINDER Work Phone: [facility] [place] Comment on above: Psoriatic arthritis (HCC) (Primary Dx); Psoriasis Start: 12-04-2023 End: 12-04-2023 Telephone encounter Edenilson Nicholson DO Work Phone: [facility] [place] Comment on above: Patient Update Start: 11-28-2023 End: 11-28-2023 Telephone encounter Kinga A Suppan SITE IDENTIFICATION SPECIALIST.BACKWINDER Work Phone: [facility] Start: 11-25-2023 End: 11-25-2023 Subsequent hospital visit by physician Nalini [facility] Work Phone: Radiology Comment on above: Pain in lateral port ion of right ankle [M25.571] Start: 11-25-2023 End: 11-25-2023 ambulatory EDENILSON NICHOLSON Facility:[facility] Start: 11-25-2023 End: 11-25-2023 Office outpatient visit 15 minutes Kinga A Suppan SITE IDENTIFICATION SPECIALIST.BACKWINDER Work Phone: [facility] [place] Comment on above: Pain in lateral port ion of right ankle (Primary Dx) Start: 11-18-2023 End: 11-18-2023 Refill Edenilson Nicholson DO Work Phone: [facility] [place] Comment on above: Refill Request Start: 11-13-2023 End: 11-13-2023 ambulatory ANAMARIA HUGHESA Facility:[facility] Start: 11-13-2023 End: 11-13-2023 Patient encounter procedure Anamaria Paul MD Work Phone: Gastroenterology Comment on above: Pancreatic cyst (Sarah ines Dx) Start: 11-08-2023 End: 11-08-2023 Refill Edenilson Fabio GreenNicholson DO Work Phone: [facility] [place] Comment on above: Refill Request Start: 10-29-2023 End: 10-29-2023 Telephone encounter Kym DAVIS Work Phone: [facility] Comment on above: Results Start: 10-28-2023 End: 10-28-2023 ambulatory EDENILSON GREENRISON Facility:[facility] Start: 10-28-2023 End: 10-28-2023 Patient encounter procedure Kym DAVIS Work Phone: [facility] Comment on above: Acute cough (Primary Dx); Exposure to COVID-19 virus Start: 10-24-2023 End: 10-24-2023 Telephone encounter Anamaria Paul MD Work Phone: Gastroenterology Comment on above: Appointment ([facility]) Start: 10-22-2023 End: 10-22-2023 ambulatory EDENILSON GREENRISON Facility:[facility] Start: 10-22-2023 End: 10-22-2023 Patient encounter procedure Edenilson Greenrison DO Work Phone: [facility] [place] Comment on above: JOSHUA (generalized anx iety disorder) (Primary Dx); Bee sting, accidental or unintentional, initial encounter; Osteoarthritis of spine with radiculopathy, cervical region; Radiculopathy, cervical region; Hypertension, essential; Hyperlipidemia, mixed; Dementia without behavioral disturbance (HCC) Start: 10-22-2023 End: 10-22-2023 ambulatory EDENILSON L NICHOLSON Facility:[facility] Start: 09-24-2023 End: 12-02-2023 Telephone encounter Edenilson Schultzon DO Work Phone: [facility] [place] Comment on above: ER F/U; Nausea & Vom iting Start: 09-23-2023 End: 09-23-2023 Emergency department patient visit MAXIMO PEÑA Facility:[facility] Start: 09-22-2023 ambulatory Julius Jenkins RN NURSE O N CALL Comment on above: Abdominal Pain Start: 09-18-2023 End: 09-18-2023 Patient encounter procedure Edenilson Nicholson DO Work Phone: [facility] Comment on above: Dementia without beh avioral disturbance (HCC) (Primary Dx); JOSHUA (generalized anxiety disorder); Abdominal discomfort; Hypertension, essential Start: 09-18-2023 End: 09-18-2023 ambulatory EDENILSON NICHOLSON Facility:[facility] Start: 08-19-2023 End: 08-19-2023 ambulatory Edenilson Nicholson Facility:[facility] Start: 08-17-2023 ambulatory Estrellita Morton RN NURS E BROADCAST CORRESPONDENT Comment on above: Question Start: 08-09-2023 Refill Edenilson rivera DO Work Phone: [facility] Comment on above: Refill Request Start: 08-02-2023 Refill Edenilson rivera DO Work Phone: [facility] Comment on above: Refill Request Start: 08-01-2023 Telephone encounter Edenilson giordano DO Work Phone: [facility] Comment on above: Refill Request; requ esting medication no longer on list Start: 07-16-2023 End: 07-16-2023 Patient encounter procedure Angeline Monterroso APRN.BACKWINDER Work Phone: [facility] Comment on above: JOSHUA (generalized anx iety disorder) (Primary Dx); Stress; Abdominal discomfort; RUQ abdominal pain Start: 07-08-2023 Telephone encounter Chapis ervin APRN.BACKWINDER [facility] Phone[facility] Comment on above: Results Start: 07-04-2023 ambulatory Edenilson rivera DO Work Phone: [facility] Comment on above: Urinary Symptoms Start: 07-04-2023 End: 07-04-2023 Patient encounter procedure Chapis Valle APRN.BACKWINDER Work Phone: [facility] Comment on above: UTI symptoms (Primar y Dx) Start: 06-28-2023 Telephone encounter Angeline Roberto SITE IDENTIFICATION SPECIALIST.BACKWINDER Work Phone: [facility] Comment on above: Results Start: 06-27-2023 End: 06-27-2023 Subsequent hospital visit by physician Nalini [facility] [place] Work Phone: Radiology Comment on above: Acute cough [R05.1] Start: 06-27-2023 End: 06-27-2023 Patient encounter procedure Angeline Monterroso SITE IDENTIFICATION SPECIALIST.BACKWINDER Work Phone: [facility] Comment on above: Persistent cough (Pr imary Dx); Acute cough; Decreased lung sounds Start: 06-26-2023 ambulatory Edenilson rivera DO Work Phone: [facility] Comment on above: Medication Problem Start: 06-26-2023 Telephone encounter Edenilson giordano DO Work Phone: [facility] Comment on above: Opened In Error Start: 06-12-2023 End: 06-12-2023 Patient encounter procedure Angeline Monterroso SITE IDENTIFICATION SPECIALIST.BACKWINDER Work Phone: [facility] Comment on above: Abdominal discomfort (Primary Dx); Hypertension, essential; Dementia without behavioral disturbance (HCC); Oral lesion Start: 06-08-2023 ambulatory Sowmya Haywood RN NURS E BROADCAST CORRESPONDENT Comment on above: Information Start: 06-03-2023 Telephone encounter Edenilosn giordano DO Work Phone: [facility] Comment on above: Patient Update; Medi cation Problem Start: 05-27-2023 End: 05-27-2023 ambulatory [facility] Work Phone: Start: 05-27-2023 End: 05-27-2023 Patient encounter procedure [facility] Work Phone: Start: 05-24-2023 Telephone encounter Edenilson giordano DO Work Phone: [facility] Start: 05-22-2023 ambulatory EDENILSON Uriarte ity:[id number] Start: 05-22-2023 End: 05-22-2023 Subsequent hospital visit by physician Mri [facility] Work Phone: [facility] Comment on above: Pancreas cyst [K86.2 ] Start: 05-08-2023 [facility] Start: 05-08-2023 Telephone encounter Angeline Roberto SITE IDENTIFICATION SPECIALIST.BACKWINDER Work Phone: [facility] Comment on above: Results; Appointment ; Patient Question Start: 05-08-2023 End: 05-08-2023 Subsequent hospital visit by physician [facility] Comment on above: Elevated lipase [R74 .8] Start: 05-08-2023 End: 05-08-2023 Patient encounter procedure Angeline Monterroso SITE IDENTIFICATION SPECIALIST.BACKWINDER Work Phone: [facility] Comment on above: Elevated lipase (Sarah ines Dx); Bloating; Upper abdominal pain; Nausea Start: 05-06-2023 Telephone encounter Mellisa collins DO Work Phone: Colorectal Surgery Comment on above: Flume Worker - O ther Start: 04-17-2023 End: 04-17-2023 Patient encounter procedure Edenilson Nicholson DO Work Phone: [facility] Comment on above: Hypertension, essent ial (Primary Dx); JOSHUA (generalized anxiety disorder); Dementia without behavioral disturbance (HCC); Rectal prolapse; Short-term memory loss Start: 03-11-2023 End: 03-11-2023 ambulatory [facility] Work Phone: Start: 03-11-2023 End: 03-11-2023 Patient encounter procedure [facility] Work Phone: Start: 02-14-2023 Telephone encounter Nel leung MD Work Phone: [facility] Comment on above: Schedule Surgery Start: 02-13-2023 Telephone encounter Mellisa collins DO Work Phone: Colorectal Surgery Comment on above: Flume Worker - O ther Start: 02-06-2023 Refill Edenilson rivera DO Work Phone: [facility] [place] Comment on above: Refill Request Start: 02-05-2023 Refill Edenilson rivera DO Work Phone: [facility] [place] Comment on above: Refill Request Start: 01-28-2023 End: 01-28-2023 Patient encounter procedure Kandi Park SITE IDENTIFICATION SPECIALIST.BACKWINDER Work Phone: [facility] [place] Comment on above: Visit for suture rem oval (Primary Dx) Start: 01-23-2023 Telephone encounter Kandi rivera SITE IDENTIFICATION SPECIALIST.BACKWINDER Work Phone: [facility] [place] Start: 01-21-2023 End: 01-21-2023 Patient encounter procedure Kandi Park SITE IDENTIFICATION SPECIALIST.BACKWINDER Work Phone: [facility] [place] Comment on above: Fall, subsequent enc ounter (Primary Dx); Urinary frequency; Laceration of left eyebrow, subsequent encounter Start: 01-20-2023 ambulatory Mellisa Hathaway RN NURS E BROADCAST CORRESPONDENT Comment on above: Question Start: 01-19-2023 End: 01-19-2023 Emergency department patient visit DR MIRA VILLATORO DO Facility:[facility] Start: 01-19-2023 End: 01-19-2023 Emergency department patient visit DR MIRA VILLATORO DO [facility] Start: 01-16-2023 Telephone encounter Edenilson giordano DO Work Phone: [facility] [place] Comment on above: Results Start: 01-14-2023 End: 01-14-2023 Patient encounter procedure Michael Del Castillo PA-C Work Phone: Orthopaedics Comment on above: Pain due to knee mt nt prosthesis, subsequent encounter (Primary Dx); Status post total left knee replacement Start: 01-14-2023 Telephone encounter Nel leung MD Work Phone: [facility] Comment on above: Schedule Surgery Start: 01-11-2023 End: 01-11-2023 Office outpatient visit 15 minutes Michael Del Castillo PA-C Work Phone: Orthopaedics Comment on above: Pain due to knee mt nt prosthesis, initial encounter ([facility]) (Primary Dx); Status post total left knee replacement Start: 01-11-2023 End: 01-11-2023 Subsequent hospital visit by physician [facility] Khloe Sullivan Work Phone: Radiology Comment on above: Left knee pain, unsp ecified chronicity [M25.562] Start: 01-09-2023 Telephone encounter Nel leung MD Work Phone: [facility] Comment on above: Schedule Surgery Start: 01-02-2023 Telephone encounter Nel leung MD Work Phone: [facility] Comment on above: pre op and post op a ppts Start: 12-27-2022 End: 12-27-2022 Subsequent hospital visit by physician Mri Radio [facility] (I-Stat/1.5t) Work Phone: Radiology Comment on above: Cystic mass of pancr eas [K86.2] Start: 12-11-2022 End: 12-11-2022 ambulatory [facility] Work Phone: Start: 12-11-2022 End: 12-11-2022 Patient encounter procedure [facility], [place] Work Phone: Start: 12-10-2022 Telephone encounter Angeline Roberto APRN.CNP Work Phone: [facility] [place] Comment on above: Results Start: 11-26-2022 End: 11-26-2022 Orders Only Nel Zayas MD Work Phone: Urogynecology Comment on above: Vaginal vault prolap se (Primary Dx); Rectocele; Cystocele, midline; Urinary incontinence, urge; Overactive bladder; Rectal prolapse; Preoperative examination Osteopenia, senile [ M85.80] Start: 11-26-2022 Preprocedural examination done Nel Zayas MD Work Phone: [facility] Work Phone: Start: 11-22-2022 Telephone encounter Mellisa collins DO Work Phone: Colorectal Surgery Comment on above: Flume Worker - O ther Start: 11-20-2022 End: 11-20-2022 Subsequent hospital visit by physician Ct [facility] (I-Stat) Work Phone: Cat Scan Comment on above: Chronic cough [R05.3 ] Start: 11-19-2022 End: 11-19-2022 Patient encounter procedure Mellisa Waltonvak DO Work Phone: Colorectal Surgery Comment on above: Rectocele (Primary D x) Start: 11-15-2022 Telephone encounter Abigail Barton APRN.CNP Work Phone: [facility] Comment on above: Results Start: 11-14-2022 End: 11-14-2022 Patient encounter procedure Edenilson Fabio Schultzon DO Work Phone: [facility] [place] Comment on above: Recurrent UTI (urina ry tract infection) (Primary Dx); Osteopenia, senile; Chronic cough; Rales; Psoriatic arthritis (HCC); Chronic obstructive pulmonary disease, unspecified COPD type ([facility]); Rectal prolapse Start: 11-13-2022 End: 11-13-2022 Office outpatient visit 25 minutes Johnie Aguirre APRN.KEVIN Work Phone: [facility] Comment on above: Urinary frequency (P rimary Dx) Start: 11-07-2022 Refill Edenilson rivera DO Work Phone: [facility] [place] Comment on above: Refill Request Start: 10-12-2022 ambulatory Edenilson rivera DO Work Phone: [facility] [place] Comment on above: Chest Pain Start: 10-12-2022 End: 10-12-2022 Patient encounter procedure Cristhian Rodnye PA-C Work Phone: Family [facility] [place] Comment on above: Viral bronchitis (Pr imary Dx); Chronic obstructive pulmonary disease, unspecified COPD type (HCC) Start: 10-06-2022 ambulatory Silva ACUÑA BROADCAST CORRESPONDENT Comment on above: Medication Problem Start: 09-28-2022 Telephone encounter Nubia Roger pollard SITE IDENTIFICATION SPECIALIST.BACKWINDER Work Phone: [facility] Comment on above: Results Start: 09-25-2022 End: 09-25-2022 Subsequent hospital visit by physician Xr [facility] Work Phone: Radiology Comment on above: Acute cough [R05.1] Start: 09-20-2022 ambulatory Estrellita CAMPBELL E BROADCAST CORRESPONDENT Comment on above: Cough Start: 09-20-2022 End: 09-20-2022 Patient encounter procedure Cristhian Rodney PA-C Work Phone: [facility] Comment on above: Acute cough (Primary Dx); Bee sting, accidental or unintentional, initial encounter Start: 09-13-2022 End: 09-13-2022 ambulatory [facility] Work Phone: Start: 09-13-2022 End: 09-13-2022 Patient encounter procedure [facility] Work Phone: Start: 09-03-2022 Telephone encounter Angeline Roberto SITE IDENTIFICATION SPECIALIST.BACKWINDER Work Phone: [facility] Comment on above: Results Start: 08-30-2022 Refill Edenilson Lopez nicole DO Work Phone: [facility] Comment on above: Refill Request Start: 08-15-2022 End: 08-15-2022 Subsequent hospital visit by physician [facility] (I-Stat) Work Phone: Cat Scan Comment on above: Short-term memory lo ss [R41.3] Start: 08-15-2022 Telephone encounter Edenilson giordano DO Work Phone: [facility] Comment on above: Results Start: 08-01-2022 End: 08-01-2022 Patient encounter procedure Edenilson Nicholson DO Work Phone: [facility] Comment on above: Nasal sore (Primary Dx); JOSHUA (generalized anxiety disorder); Cough, persistent; Short-term memory loss; Word finding difficulty; Rectal prolapse; Chronic obstructive pulmonary disease, unspecified COPD type (HCC); Psoriatic arthritis (HCC) Start: 07-14-2022 End: 07-14-2022 Patient encounter procedure Efra Stinson MD Work Phone: [facility] Comment on above: Rash (Primary Dx); Bug bite, initial encounter Start: 07-11-2022 Refill Edenilson rivera DO Work Phone: [facility] [place] Comment on above: Refill Request Start: 06-27-2022 Telephone encounter Edenilson Fabio giordano DO Work Phone: [facility] [place] Comment on above: Medication Question Start: 06-27-2022 End: 06-27-2022 Patient encounter procedure Angeline Monterroso APRN.BACKWINDER Work Phone: [facility] [place] Comment on above: JOSHUA (generalized anx iety disorder) (Primary Dx); Cough, persistent; Pain of right lower extremity; Chronic obstructive pulmonary disease, unspecified COPD type (HCC); Psoriatic arthritis (HCC) Start: 06-25-2022 End: 06-25-2022 Patient encounter procedure [facility] Work Phone: Start: 06-22-2022 ambulatory Edenilson rivera DO Work Phone: [facility] [place] Comment on above: Anxiety Start: 06-16-2022 Telephone encounter Mellisa collins DO Work Phone: Colorectal Surgery Comment on above: Results Start: 06-09-2022 Refill Edenilson rivera DO Work Phone: [facility] [place] Comment on above: Refill Request Start: 05-22-2022 Telephone encounter Mellisa collins DO Work Phone: Colorectal Surgery Comment on above: Flume Worker - O ther Refill Request Start: 05-21-2022 ambulatory Dimple mckeon RN Work Phone: [employer] Comment on above: Community Monitoring Outreach [...] Telephone encounter Edenilson giordano DO Work Phone: [facility] [place] Comment on above: Patient Update Start: 05-03-2022 Telephone encounter Edenilson giordano DO Work Phone: [facility] [place] Comment on above: Medication Question Start: 04-27-2022 Telephone encounter Mellisa collins DO Work Phone: Colorectal Surgery Comment on above: Results Start: 04-24-2022 End: 04-24-2022 Patient encounter procedure Edenilson Nicholson DO Work Phone: [facility] [place] Comment on above: Urinary frequency (P rimary Dx); Prolapse of intestine; Pelvic floor dysfunction in female; Hypertension, essential; Dyslipidemia Start: 04-20-2022 Telephone encounter Mellisa collins DO Work Phone: Colorectal Surgery Comment on above: Flume Worker - O ther Start: 04-20-2022 End: 04-20-2022 Patient encounter procedure Angeline Monterroso APRN.CNP Work Phone: [facility] [place] Comment on above: Urinary frequency (P rimary Dx); Pain in both lower extremities Start: 04-19-2022 ambulatory Edenilson rivera DO Work Phone: [facility] [place] Comment on above: Leg Pain Start: 04-17-2022 Orders Only Nel ordonez MD Work Phone: Urogynecology Comment on above: Urinary incontinence , urge (Primary Dx); Preoperative examination Start: 04-17-2022 Preprocedural examination done Nel Zayas MD Work Phone: Urogynecology Start: 04-16-2022 End: 04-16-2022 ambulatory Clare Sai SITE IDENTIFICATION SPECIALIST.BACKWINDER Work Phone: Colorectal Surgery Comment on above: Manometry Start: 04-16-2022 End: 04-16-2022 Patient encounter procedure Clare Sai SITE IDENTIFICATION SPECIALIST.BACKWINDER Work Phone: [facility] Comment on above: Screening for colon cancer (Primary Dx) Start: 04-12-2022 Telephone encounter Edenilson giordano DO Work Phone: [facility] Comment on above: Patient Question Start: 04-09-2022 Telephone encounter Edenilson giordano DO Work Phone: [facility] Comment on above: Patient Update Start: 04-07-2022 End: 04-07-2022 Patient encounter procedure Efra Stinson MD Work Phone: [facility] Comment on above: Dental infection (Pr imary Dx) Start: 03-26-2022 End: 03-26-2022 ambulatory [facility] Work Phone: Start: 03-26-2022 End: 03-26-2022 Patient encounter procedure [facility] Start: 03-22-2022 Refill Edenilson Lopez son DO Work Phone: [facility] Comment on above: Opened In Error Start: 03-08-2022 End: 03-08-2022 Subsequent hospital visit by physician Gi [facility] (I-Stat) Radiology Comment on above: Rectocele [N81.6] Start: 03-06-2022 Telephone encounter Laisha mckeon PA-C Work Phone: [facility] Comment on above: Results Medication Problem Start: 03-05-2022 End: 03-05-2022 Patient encounter procedure Laisha Espinoza PA-C Work Phone: [facility] Comment on above: Urinary frequency (P rimary Dx); Viral URI Start: 02-16-2022 End: 02-16-2022 Patient encounter procedure Lynne Silverman APRN.BACKWINDER Work Phone: Urology Comment on above: Rectocele (Primary D x); Urinary frequency; Frequent UTI Start: 02-14-2022 End: 02-14-2022 Patient encounter procedure Edenilson Nicholson DO Work Phone: [facility] Comment on above: Prolapse of intestin e (Primary Dx); Pelvic floor dysfunction in female; Urinary frequency Start: 02-11-2022 Telephone encounter Sherrie hagen APRN.BACKWINDER Work Phone: [facility] Comment on above: Results Start: 02-10-2022 End: 02-10-2022 Office outpatient visit 25 minutes Johnie Aguirre SITE IDENTIFICATION SPECIALIST.BACKWINDER Work Phone: [facility] Comment on above: Urinary frequency (P rimary Dx) Start: 02-09-2022 End: 02-09-2022 ambulatory Laisha Sullivan PT Work Phone: [facility] [employer] Start: 02-09-2022 End: 02-09-2022 Manual pelvic examination Laisha Sullivan PT Work Phone: [facility] Comment on above: Prolapse of intestin e (Primary Dx); Urinary incontinence, unspecified type; Pelvic floor dysfunction in female Start: 01-24-2022 Telephone encounter Edenilson giordano DO Work Phone: [facility] Comment on above: Results Start: 01-23-2022 End: 01-23-2022 ambulatory Laisha Sullivan PT Work Phone: [facility] [employer] Start: 01-23-2022 End: 01-23-2022 Manual pelvic examination Laisha Sullivan PT Work Phone: [facility] Comment on above: Prolapse of intestin e (Primary Dx); Urinary incontinence, unspecified type; Pelvic floor dysfunction in female Start: 01-22-2022 End: 01-22-2022 Patient encounter procedure Edenilson Nicholson DO Work Phone: [facility] Comment on above: Urinary frequency (P rimary Dx); Pelvic floor dysfunction in female; Prolapse of intestine; Neck pain; Osteoarthritis of spine with radiculopathy, cervical region Start: 01-19-2022 ambulatory Edenilson rivera DO Work Phone: [facility] Comment on above: headache-left side Start: 01-16-2022 End: 01-16-2022 ambulatory Laisha Sullivan PT Work Phone: [facility] Start: 01-16-2022 End: 01-16-2022 Manual pelvic examination Laisha Sullivan PT Work Phone: [facility] Comment on above: Prolapse of intestin e (Primary Dx); Urinary incontinence, unspecified type; Pelvic floor dysfunction in female Start: 01-14-2022 Telephone encounter Johnie kang APRN.BACKWINDER Work Phone: [facility] Comment on above: Results Start: 01-12-2022 ambulatory Edenilson rivera DO Work Phone: [facility] Comment on above: UTI Start: 01-12-2022 End: 01-12-2022 Patient encounter procedure Claudia Jones APRN.BACKWINDER Work Phone: [facility] Comment on above: Urinary frequency (P rimary Dx) Start: 01-01-2022 End: 01-01-2022 ambulatory [facility] Work Phone: Start: 01-01-2022 End: 01-01-2022 Patient encounter procedure [facility] Start: 12-23-2021 Telephone encounter Edenilson giordano DO Work Phone: [facility] Comment on above: Epistaxis Start: 12-22-2021 [...] encounter procedure Edenilson Nicholson DO Work Phone: [facility] Comment on above: Prolapse of intestin e (Primary Dx); Pelvic floor dysfunction in female; Urinary incontinence, unspecified type Start: 12-02-2021 ambulatory Samantha Marin RN NURS E BROADCAST CORRESPONDENT Comment on above: Rectal Problem Start: 11-20-2021 ambulatory Edenilson Lopez son DO Work Phone: [facility] Comment on above: Foot Swelling; Derm Problem Start: 11-01-[address] mahmood SITE IDENTIFICATION SPECIALIST.BACKWINDER Work Phone: [facility] Comment on above: Results Start: 10-31-2021 Telephone encounter Edenilson coleroro DO Work Phone: [facility] Comment on above: Rx refill; not on cu rrent med list Start: 10-30-2021 End: 10-30-2021 ambulatory [facility] Work Phone: Start: 10-30-2021 End: 10-30-2021 Patient encounter procedure [facility] Start: 10-29-2021 ambulatory Kinga an LPN NURSE BROADCAST CORRESPONDENT Comment on above: Results; returning a call Start: 10-28-[address] mahmood SITE IDENTIFICATION SPECIALIST.BACKWINDER Work Phone: [facility] Comment on above: Results Start: 10-27-2021 ambulatory Edenilson rivera DO Work Phone: [facility] Comment on above: Diarrhea Start: 10-27-2021 End: 10-27-2021 Patient encounter procedure Angeline Monterroso APRN.BACKWINDER Work Phone: [facility] Comment on above: Diarrhea, unspecifie d type (Primary Dx); Mild headache Start: 10-20-2021 Refill Edenilson Lopez son DO Work Phone: [facility] Comment on above: Refill Request Start: 10-12-2021 Refill Edenilson rivera DO Work Phone: [facility] Comment on above: Refill Request Start: 09-18-2021 End: 09-18-2021 Patient encounter procedure Michael Del Castillo PA-C Work Phone: Orthopaedics Comment on above: Status post total le ft knee replacement (Primary Dx); Status post total right knee replacement Start: 09-17-2021 Refill Willy Giraldo Work Phone: Orthopaedics Comment on above: Refill Request Start: 09-12-2021 End: 09-12-2021 Office outpatient visit 15 minutes Charissa Jauregui APRN.BACKWINDER Work Phone: [facility] Comment on above: Injury of left hand, initial encounter (Primary Dx) Start: 08-03-2021 Telephone encounter Margaret Knutson Work Phone: Podiatry Comment on above: Results Start: 08-02-2021 End: 08-02-2021 Subsequent hospital visit by physician Nalini [facility] Work Phone: Radiology Comment on above: Repetitive stress in jury [X50.3XXA] Start: 08-02-2021 End: 08-02-2021 Patient encounter procedure Margaret Bacon Work Phone: Podiatry Comment on above: Repetitive stress in jury (Primary Dx); Foot pain, left; Erythema of foot Start: 08-01-2021 End: 08-01-2021 Patient encounter procedure [facility] Start: 07-20-2021 Telephone encounter Angeline Roberto PARMJIT.BACKWINDER Work Phone: [facility] [place] Comment on above: Results Start: 07-20-2021 End: 07-20-2021 Subsequent hospital visit by physician Nalini [facility] [place] Work Phone: Radiology Comment on above: Foot pain, left [M79 .672] Start: 07-20-2021 End: 07-20-2021 Patient encounter procedure Angelinedavid Monterroso PARMJIT.BACKWINDER Work Phone: [facility] [place] Comment on above: Foot pain, left (Sarah ines Dx); Erythema of foot; Urinary frequency; Sensation of fullness in left ear; Psoriatic arthritis (HCC); Recurrent cold sores; Seasonal allergies; Scalp lump Start: 07-19-2021 Refill Edenilson rivera DO Work Phone: [facility] [place] Comment on above: Refill Request Start: [...] 06-28-2021 Refill Edenilson rivera DO Work Phone: [facility] [place] Comment on above: Refill Request Start: 06-27-2021 End: 06-27-2021 Patient encounter procedure Edenilson Nicholson DO Work Phone: [facility] [place] Comment on above: Neck pain (Primary D x); Hypertension, essential; IFG (impaired fasting glucose); Dyslipidemia; Inflammatory arthritis; Rib injury; Osteoarthritis of spine with radiculopathy, cervical region; DDD (degenerative disc disease), cervical Start: 06-23-2021 Orders Only Michael Del Castillo PA-C Work Phone: Orthopaedics Comment on above: Pain in both knees, unspecified chronicity (Primary Dx) Start: 06-19-2021 End: 06-19-2021 Discharged Recurring [facility]-Physical Therapy Start: 06-12-2021 Telephone encounter Charissa flower APRN.BACKWINDER Work Phone: [facility] Comment on above: Results Start: 06-09-2021 End: 06-09-2021 Subsequent hospital visit by physician Xr [facility] Work Phone: Radiology Comment on above: Flank pain [R10.9] Start: 06-09-2021 End: 06-09-2021 Patient encounter procedure Charissa Jauregui SITE IDENTIFICATION SPECIALIST.BACKWINDER Work Phone: [facility] Comment on above: Flank pain (Primary Dx) Start: 06-08-2021 Telephone encounter Angeline Roberto PARMJIT.BACKWINDER Work Phone: [facility] Comment on above: Results Start: 06-07-2021 Telephone encounter Edenilson giordano DO Work Phone: [facility] Comment on above: Opened In Error Start: 06-07-2021 End: 06-07-2021 Patient encounter procedure Efra Stinson MD Work Phone: [facility] Comment on above: Muscle strain of marian st wall, initial encounter (Primary Dx) Start: 05-02-2021 End: 05-02-2021 Subsequent hospital visit by physician Nalini [facility] Work Phone: Radiology Comment on above: Inflammatory arthrit is [M19.90] Start: 04-10-2021 End: 04-10-2021 Subsequent hospital visit by physician Nalini [facility] [place] Work Phone: Radiology Comment on above: Injury of left hip, initial encounter [S79.912A] Start: 03-25-2021 End: 03-25-2021 Patient encounter procedure [facility]-Laboratory, Specimen Start: 03-24-2021 End: 03-24-2021 Patient encounter procedure [facility]-Laboratory, Specimen Start: 10-03-2020 End: 10-03-2020 Subsequent hospital visit by physician Xr [facility] [place] Work Phone: Radiology Comment on above: Dry cough [R05] Procedures Date Procedure Procedure Detail Performing Clinician Start: 07-29-2024 Mri spinal canal lum bar w/o contrast material Mary Keith SITE IDENTIFICATION SPECIALIST.BACKWINDER Work Phone: Start: 06-30-2024 Radex ankle complete minimum 3 views Lani Arndt PA-C Work Phone: Start: 05-06-2024 Urnls dip stick/tabl et rgnt auto w/o microscopy Kandi Park SITE IDENTIFICATION SPECIALIST.BACKWINDER Work Phone: Start: 04-27-2024 Radiologic exam chest 2 views Sherrie Gonzales SITE IDENTIFICATION SPECIALIST.BACKWINDER Work Phone: Start: 04-26-2024 Urnls dip stick/tabl et rgnt auto w/o microscopy Kym DAVIS Work Phone: Start: 01-03-2024 Urnls dip stick/tabl et rgnt auto w/o microscopy Efra Stinson MD Work Phone: Start: 12-24-2023 Urnls dip stick/tabl et rgnt auto w/o microscopy [facility] Start: 07-16-2023 Urnls dip stick/tabl et rgnt auto w/o microscopy Angeline Monterroso SITE IDENTIFICATION SPECIALIST.BACKWINDER Work Phone: Start: 07-04-2023 Urnls dip stick/tabl et rgnt auto w/o microscopy Chapis Valle SITE IDENTIFICATION SPECIALIST.BACKWINDER Work Phone: Start: 06-27-2023 Radiologic exam chest 2 views Angeline Monterroso SITE IDENTIFICATION SPECIALIST.BACKWINDER Work Phone: Start: 06-27-2023 COVID & INFLUENZA A/ B & RSV NAAT, ROUTINE Angeline Monterroso SITE IDENTIFICATION SPECIALIST.BACKWINDER Work Phone: Start: 05-08-2023 Us abdominal real ti me w/image limited Angeline Monterroso SITE IDENTIFICATION SPECIALIST.BACKWINDER Work Phone: Start: 01-21-2023 Urnls dip stick/tabl et rgnt auto w/o microscopy Kandienma Park SITE IDENTIFICATION SPECIALIST.BACKWINDER Work Phone: Start: 01-14-2023 Arthrocentesis aspir &/inj [...] et rgnt auto w/o microscopy Claudia Jones SITE IDENTIFICATION SPECIALIST.BACKWINDER Work Phone: Start: 09-25-2022 Radiologic exam chest 2 views Nubia Bahena SITE IDENTIFICATION SPECIALIST.BACKWINDER Work Phone: Start: 08-15-2022 Ct head/brain w/o co ntrast material Edenilson Nciholson DO Work Phone: Start: 05-10-2022 Level iv surg pathol ogy gross&microscopic exam Owen Rivas MD Work Phone: Start: 05-10-2022 Colonoscopy flx dx w /collj spec when pfrmd Mellisa Griselda DO Work Phone: Start: 04-24-2022 Urnls dip stick/tabl et rgnt auto w/o microscopy Edenilson Nicholson DO Work Phone: Start: 04-20-2022 Urnls dip stick/tabl et rgnt auto w/o microscopy Angeline Monterroso SITE IDENTIFICATION SPECIALIST.BACKWINDER Work Phone: Start: 04-16-2022 [facility] [place] [facility] Yi Gonsalves SITE IDENTIFICATION SPECIALIST.BACKWINDER Work Phone: Start: 03-08-2022 Radiologic exam colo n single contrast study Yi Orlandoan SITE IDENTIFICATION SPECIALIST.BACKWINDER Work Phone: Start: 03-05-2022 COVID WITH FLUA+B, ROUTINE Laisha Espinoza PA-C Work Phone: Start: 03-05-2022 Culture bacterial qu anttative colony count urine Laisha Espinoza PA-C Work Phone: Start: 03-05-2022 Urnls dip stick/tabl et rgnt auto w/o microscopy Laisha Espinoza PA-C Work Phone: Start: 02-16-2022 Urnls dip stick/tabl et rgnt auto w/o microscopy Lynne Silverman SITE IDENTIFICATION SPECIALIST.BACKWINDER Work Phone: Start: 02-10-2022 Urnls dip stick/tabl et rgnt auto w/o microscopy Abigail Balderas SITE IDENTIFICATION SPECIALIST.BACKWINDER Work Phone: Start: 01-22-2022 Urnls dip stick/tabl et rgnt auto w/o microscopy Edenilson Nicholson DO Work Phone: Start: 01-12-2022 Urnls dip stick/tabl et rgnt auto w/o microscopy Efra Stinson MD Work Phone: Start: 12-22-2021 Radiologic examinati on knee 3 views Michael Del Castillo PA-C Work Phone: Start: 10-28-2021 Blood occult peroxid ase actv qual feces 1-3 spec Angeline Monterroso SITE IDENTIFICATION SPECIALIST.BACKWINDER Work Phone: Start: 10-28-2021 Nfct agent dna/rna gastrointestinal pathogen Angeline Cory SITE IDENTIFICATION SPECIALIST.BACKWINDER Work Phone: Start: 10-27-2021 COVID WITH FLUA+B, ROUTINE Angeline Monterroso SITE IDENTIFICATION SPECIALIST.BACKWINDER Work Phone: Start: 08-02-2021 Radex foot complete minimum 3 views Margaret Bacon Work Phone: Start: 07-20-2021 Radex foot complete minimum 3 views Angeline Monterroso SITE IDENTIFICATION SPECIALIST.BACKWINDER Work Phone: Start: 07-20-2021 Urnls dip stick/tabl et rgnt auto w/o microscopy Angeline Monterroso SITE IDENTIFICATION SPECIALIST.BACKWINDER Work Phone: Start: 07-17-2021 Radiologic examinati on knee 3 views Glenna Bhandari PA-C Work Phone: Start: 06-09-2021 Radex ribs uni w/pos teroant ch minimum 3 views Charissa Jauregui SITE IDENTIFICATION SPECIALIST.BACKWINDER Work Phone: Start: 06-09-2021 Urnls dip stick/tabl et rgnt auto w/o microscopy Charissa Jauregui SITE IDENTIFICATION SPECIALIST.BACKWINDER Work Phone: Start: 05-02-2021 Radex hand minimum 3 views Mariam Beltran MD Work Phone: Start: 04-10-2021 Radex hip unilateral with pelvis 2-3 views Angeline Monterroso SITE IDENTIFICATION SPECIALIST.BACKWINDER Work Phone: Start: 04-10-2021 Radiologic exam chest 2 views Angeline Monterroso SITE IDENTIFICATION SPECIALIST.BACKWINDER Work Phone: Start: 03-25-2021 End: 03-25-2021 Bacteria identification test Start: 03-24-2021 Bacteria identification test Start: 10-03-2020 Radiologic exam chest 2 views Edenilson Nicholson DO Work Phone: Plan of Treatment Date Care Activity Detail Author Start: 11-23-2032 Urine microalbumin profile DTaP,Tdap,Td Vaccine (4 - Td or Tdap) [facility] Start: 07-11-2030 Urine microalbumin profile [facility] Start: 05-16-2027 Diabetes Screening Diabetes Screening [facility] Start: 03-23-2027 Diabetes Screening Diabetes Screening [facility] Start: 09-22-2026 Diabetes Screening Diabetes Screening [facility] Start: 05-07-2026 Diabetes Screening Diabetes Screening [facility] Start: 08-02-2025 DIABETES SCREEN DIABETES SCREEN [facility] Start: 08-02-2025 Diabetes Screening Diabetes Screening [facility] Start: 01-21-2025 Covid-19 Vaccine (#1) Covid-19 Vaccine (#1) [facility] Comment on above: Postponed from 02/27/1945 (Declined at t his time) Start: 12-02-2024 DIABETES SCREEN DIABETES SCREEN [facility] Start: 11-02-2024 Influenza vaccination Influenza Vaccine (Season Ended) [facility] Start: 08-31-2024 Influenza vaccination [facility] on [facility] from 11/03/2023 (Declined at t his time) Start: 08-03-2024 End: 08-03-2024 ambulatory 08/03/2024 2:00 PM EDT OT/PT/Speech Visit [facility] [address] [place] [address] Valdo Ty PT Chronic left-sided low back pain without sciatica [M54.50, G89.29] [facility] Comment on above: Chronic left-sided low back pain without sciatica [M54.50, G89.29] Start: 07-08-2024 End: 07-08-2024 Patient encounter procedure 07/08/2024 11:30 AM EDT Office Visit Pain Management [address] [address] Roger Romero MD [address] [facility] [place] [address] Acute left-sided low back pain without sciatica [M54.50] Pain Management Comment on above: Acute left-sided low back pain without s ciatica [M54.50] Start: 06-08-2024 End: 06-08-2024 Patient encounter procedure 06/08/2024 12:00 PM EDT Office Visit [facility] [place] [address] [place] [address] Edenilson Nicholson DO [address] [place] [address] 5 month follow up Family [facility] Comment on above: 5 month follow up Start: 06-07-2024 DIABETES SCREEN DIABETES SCREEN [facility] Start: 04-30-2024 End: 04-30-2024 Patient encounter procedure 04/30/2024 11:30 AM EST Appointment Radiology [address] [place] [address] Pancreatic Cyst Radiology Comment on above: Pancreatic Cyst Start: 04-30-2024 Subsequent hospital visit by physician 04/30/2024 11:30 AM EST Hospital Encounter Radiology [address] [place] [address] Radiology Start: 04-19-2024 DIABETES SCREEN DIABETES SCREEN [facility] Start: 04-06-2024 End: 04-06-2024 ambulatory 04/06/2024 11:00 AM EST OT/PT/Speech Visit [facility] [address] [place] [address] Kathryn Flores, PT Acute left-sided low back pain without sciatica [M54.50] [facility] Comment on above: Acute left-sided low back pain without s ciatica [M54.50] Start: 03-25-2024 End: 03-25-2024 Patient encounter procedure 03/25/2024 11:00 AM EST Office Visit [facility] [place] [address] [place] [address] Angeline Monterroso APRN.BACKWINDER [address] [place] [address] 03-23-24 [facility] left side abdominal pain [facility] [place] Comment on above: 03-23-24 [facility] left side abdominal pa in Start: 01-22-2024 Pneumococcal Vaccine: 65+ (1 - PCV) Pneumococcal Vaccine: 65+ (1 - PCV) [facility] Comment on above: Postponed from 02/27/1946 (Declined at t his time) Start: 01-22-2024 Pneumococcal Vaccine: 65+ (1 of 2 - PCV) Pneumococcal Vaccine: 65+ (1 of 2 - PCV) [facility] Comment on above: Postponed from 02/27/1946 (Declined at t his time) Start: 01-22-2024 RSV Vaccine (1 - 1-dose 60+ series) RSV Vaccine (1 - 1-dose 60+ series) [facility] Comment on above: Postponed from 2000 (Declined at t his time) Start: 01-22-2024 RSV Vaccine (1 - 1-dose 75+ series) RSV Vaccine (1 - 1-dose 75+ series) [facility] Comment on above: Postponed from 02/27/2015 (Declined at t his time) Start: 01-22-2024 Shingrix Vaccine (1 of 2) Shingrix Vaccine (1 of 2) [facility] Comment on above: Postponed from 11/03/2012 (Declined at t his time) Start: 01-22-2024 Shingrix Vaccine (2 of 3) Shingrix Vaccine (2 of 3) [facility] Comment on above: Postponed from 11/03/2012 (Declined at t his time) Start: 01-22-2024 End: 01-22-2024 Patient encounter procedure 01/22/2024 11:00 AM EST Office Visit [facility] [place] [address] [place] [address] Edenilson Nicholson DO [address] [place] [address] 3 month follow up [facility] Comment on above: 3 month follow up Start: 01-09-2024 End: 01-09-2024 Patient encounter procedure 01/09/2024 10:00 AM EST Office Visit [facility] [place] [address] [place] [address] Angeline Monterroso APRN.BACKWINDER [address] [place], [place] [id number] possible uti and right heel pain [facility] [place] Comment on above: possible uti and right heel pain Start: 12-05-2023 End: 12-05-2023 Patient encounter procedure 12/05/2023 10:40 AM EDT Office Visit [facility] [place] [address] [place], [place] [address] Kinga Goldebrg APRN.BACKWINDER [address] [place], [place] [id number] Follow-up Arthritis. Not getting any better. [facility] [place] Comment on above: Follow-up Arthritis. Not getting any bet ter. Start: 11-13-2023 End: 11-13-2023 Patient encounter procedure 11/13/2023 12:00 PM EDT Office Visit Gastroenterology [address] [place] [address] [place] [address] [place], [place] [id number] Pt referred by Dr. Mendez, no referral available at time of scheduling. Spouse states PT referred for elevated blood levels. Gastroenterology Comment on above: Pt referred by Dr. Mendez, no referral available at time of scheduling. Spouse states PT referred for elevated blood levels. Start: 11-03-2023 Covid-19 Vaccine ( season) Covid-19 Vaccine () [facility] Start: 11-03-2023 Covid-19 Vaccine ( season) Covid-19 Vaccine ( season) [facility] Start: 11-03-2023 Influenza vaccination [facility] Start: 10-22-2023 End: 10-22-2023 Patient encounter procedure 10/22/2023 12:00 PM EDT Office Visit [facility] [place] [address] [place], [place] [address] Edenilson Nicholson, [address] [place], [place] [id number] Follow up [facility] [place] Comment on above: Follow up Start: 09-23-2023 End: 09-23-2023 Patient encounter procedure 09/23/2023 11:00 AM EDT Office Visit [facility] [place] [address] [facility] [place] [address] Kandi Park APRN.BACKWINDER [address] [facility] [place] [address] Abdominal Pain [facility] [place] Comment on above: Abdominal Pain Start: 09-18-2023 End: 09-18-2023 Patient encounter procedure 09/18/2023 6:20 PM EDT Office Visit [facility] [place] [address] [facility] [place] [address] Edenilson Nicholson DO [address] [place] [address] Follow up [facility] [place] Comment on above: Follow up Start: 09-01-2023 Influenza vaccination Influenza Vaccine (#1) [facility] Comment on above: Postponed from 11/02/2022 (Declined at t his time) Start: 08-14-2023 End: 08-14-2023 Patient encounter procedure 08/14/2023 11:00 AM EDT Office Visit [facility] [place] [address] [facility] [place] [address] Angeline Monterroso APRN.BACKWINDER [address] [place] [address] Follow up abd pain [facility] [place] Comment on above: Follow up abd pain Start: 07-24-2023 End: 07-24-2023 Patient encounter procedure 07/24/2023 6:20 PM EDT Office Visit [facility] [place] [address] [facility] [place] [address] Edenilson Nicholson DO [address] [place] [address] Follow up [facility] [place] Comment on above: Follow up Start: 07-17-2023 End: 02-15-2024 Mri abdomen w/o & w/contrast material MRI PANC/ARETHA WO/W IVCON Radiology Routine Pancreas cyst Cystic mass of pancreas Abnormal MRI of abdomen Expected: 07/17/2023, Expires: 02/15/2024 [facility] Work Phone: Comment on above: Expected: 07/17/2023, Expires: 4 Start: 05-14-2023 End: 07-14-2023 TYPE AND SCREEN,30 DAY TYPE AND SCREEN,30 DAY Blood Bank Routine Vaginal vault prolapse Rectocele Cystocele, midline Urinary incontinence, urge Overactive bladder Rectal prolapse Preoperative examination Expected: 05/14/2023, Expires: 07/14/2023 [facility] Work Phone: Comment on above: Expected: 05/14/2023, Expires: 4 Start: 04-24-2023 COVID-19 VACCINE (#1) COVID-19 VACCINE (#1) [facility] Comment on above: Postponed from 1940 (Declined at t his time) Postponed from 02/27 (Declined at this time) Start: 11-28-2022 End: 01-28-2023 Bacteria identified in Urine by Culture URINE CULTURE Microbiology Routine Recurrent UTI (urinary tract infection) Expected: 11/28/2022, Expires: 01/28/2023 [facility] Work Phone: Comment on above: Expected: 11/28/2022, Expires: 3 Start: 11-28-2022 End: 01-28-2023 Urinalysis complete panel - Urine URINALYSIS, WITH MICROSCOPIC Lab Routine Recurrent UTI (urinary tract infection) Expected: 11/28/2022, Expires: 01/28/2023 [facility] Work Phone: Comment on above: Expected: 11/28/2022, Expires: 3 Start: 11-26-2022 End: 01-26-2023 Basic metabolic 2000 panel - Serum or Plasma BASIC METABOLIC PNL Lab Routine Vaginal vault prolapse Rectocele Cystocele, midline Urinary incontinence, urge Overactive bladder Rectal prolapse Preoperative examination Expected: 11/26/2022, Expires: 01/26/2023 [facility] Work Phone: Comment on above: Expected: 11/26/2022, Expires: Start: 11-26-2022 End: 01-26-2023 CBC panel - Blood by Automated count CBC Lab Routine Vaginal vault prolapse Rectocele Cystocele, midline Urinary incontinence, urge Overactive bladder Rectal prolapse Preoperative examination Expected: 11/26/2022, Expires: 01/26/2023 [facility] Work Phone: Comment on above: Expected: 11/26/2022, Expires: Start: 11-02-2022 Covid-19 Vaccine () Covid-19 Vaccine () [facility] Start: 11-02-2022 Influenza vaccination [facility] Start: 08-31-2022 Influenza vaccination INFLUENZA (#1) [facility] Comment on above: Postponed from 11/02/2021 (Declined at t his time) Start: 08-01-2022 End: 10-01-2022 25-hydroxyvitamin D3 [Mass/volume] in Serum or Plasma VITAMIN D 25 HYDROXY Lab Routine Short-term memory loss Word finding difficulty Expected: 08/01/2022, Expires: 10/01/2022 [facility] Work Phone: Comment on above: Expected: 08/01/2022, Expires: 3 Start: 08-01-2022 End: 10-01-2022 CBC W Auto Differential panel - Blood CBC + DIFF Lab Routine Short-term memory loss Word finding difficulty Expected: 08/01/2022, Expires: 10/01/2022 [facility] Work Phone: Comment on above: Expected: 08/01/2022, Expires: Start: 08-01-2022 End: 10-01-2022 Cobalamin (Vitamin B12) [Mass/volume] in Serum or Plasma VITAMIN B12 BLOOD Lab Routine Short-term memory loss Word finding difficulty Expected: 08/01/2022, Expires: 10/01/2022 [facility] Work Phone: Comment on above: Expected: 08/01/2022, Expires: 3 Start: 08-01-2022 End: 10-01-2022 Comprehensive metabolic 2000 panel - Serum or Plasma COMP METABOLIC PANEL Lab Routine Short-term memory loss Word finding difficulty Expected: 08/01/2022, Expires: 10/01/2022 [facility] Work Phone: Comment on above: Expected: 08/01/2022, Expires: 3 Start: 08-01-2022 End: 10-01-2022 Thyrotropin [Units/volume] in Serum or Plasma TSH BLD Lab Routine Short-term memory loss Word finding difficulty Expected: 08/01/2022, Expires: 10/01/2022 [facility] Work Phone: Comment on above: Expected: 08/01/2022, Expires: 3 Start: 04-24-2022 End: 06-24-2022 Bacteria identified in Urine by Culture [facility] Work Phone: Comment on above: Expected: 04/24/2022, Expires: 3 Start: 04-10-2022 COVID-19 VACCINE (#1) COVID-19 VACCINE (#1) [facility] Comment on above: Postponed from 02/27/1945 (Declined at t his time) Postponed from 08/28 (Declined at this time) Start: 04-10-2022 COVID-19 VACCINE (1) COVID-19 VACCINE (1) [facility] Comment on above: Postponed from 1952 (Declined at t his time) Start: 11-02-2021 Influenza vaccination [facility] Start: 06-12-2021 End: 08-12-2021 Bacteria identified in Urine by Culture URINE CULTURE Microbiology Routine Microscopic hematuria Expected: 06/12/2021, Expires: 08/12/2021 [facility] Work Phone: Comment on above: Expected: 06/12/2021, Expires: 2 Start: 06-12-2021 End: 08-12-2021 Urinalysis complete panel - Urine URINALYSIS, WITH MICROSCOPIC Lab Routine Microscopic hematuria Expected: 06/12/2021, Expires: 08/12/2021 [facility] Work Phone: Comment on above: Expected: 06/12/2021, Expires: 2 Start: 02-27-2015 RSV Vaccine (1 - 1-dose 75+ series) RSV Vaccine (1 - 1-dose 75+ series) [facility] Start: 11-03-2012 SHINGRIX VACCINE (1 of 2) SHINGRIX VACCINE (1 of 2) [facility] Start: 11-03-2012 SHINGRIX VACCINE (2 of 3) SHINGRIX VACCINE (2 of 3) [facility] Start: 2000 RSV Vaccine (1 - 1-dose 60+ series) RSV Vaccine (1 - 1-dose 60+ series) [facility] Start: 02-27-1959 Pneumococcal Vaccine: 50+ (1 of 2 - PCV) Pneumococcal Vaccine: 50+ (1 of 2 - PCV) [facility] Start: 02-27-1946 Pneumococcal Vaccine: 65+ (1 - PCV) Pneumococcal Vaccine: 65+ (1 - PCV) [facility] Start: 02-27-1946 Pneumococcal Vaccine: 65+ (1 of 2 - PCV) Pneumococcal Vaccine: 65+ (1 of 2 - PCV) [facility] Start: 02-27-1946 PNEUMOCOCCAL: 65+ (1 - PCV) PNEUMOCOCCAL: 65+ (1 - PCV) [facility] Start: 02-27-1945 Covid-19 Vaccine (#1) Covid-19 Vaccine (#1) [facility] Start: 1940 COVID-19 VACCINE (#1) COVID-19 VACCINE (#1) [facility] End: 12-06-2022 ADULT [place] [facility] Endoscopy Routine Rectocele Enterocele Rectal prolapse 1 Occurrences starting 12/06/2021 until 12/06/2022 [facility] Work Phone: Comment on above: 1 Occurrences starting 12/06/2021 until 12/06/2022 ADULT [place] [facility] ADULT [place] [facility] Endoscopy Routine Rectocele Enterocele Rectal prolapse 04/16/2022 [facility] Work Phone: Bacteria identified in Urine by Culture URINE CULTURE Microbiology Routine Flank pain 06/09/2021 3:07 PM EDT [facility] Work Phone: Bacteria identified in Urine by Culture URINE CULTURE Microbiology Routine Urinary frequency Ordered: 01/12/2022 [facility] Work Phone: Comment on above: Ordered: 01/12/2022 Bacteria identified in Urine by Culture URINE CULTURE Microbiology Routine Urinary frequency Ordered: 01/22/2022 [facility] Work Phone: Comment on above: Ordered: 01/22/2022 Bacteria identified in Urine by Culture URINE CULTURE Microbiology Routine Urinary frequency Ordered: 02/10/2022 [facility] Work Phone: Comment on above: Ordered: 02/10/2022 Bacteria identified in Urine by Culture URINE CULTURE Microbiology Routine Urinary frequency 11/13/2022 4:39 PM EDT [facility] Work Phone: Bacteria identified in Urine by Culture URINE CULTURE Microbiology Routine Urinary frequency 01/21/2023 9:44 AM [facility] Work Phone: Bacteria identified in Urine by Culture URINE CULTURE Microbiology Routine UTI symptoms 07/04/2023 2:08 PM EDT [facility] Work Phone: Bacteria identified in Urine by Culture URINE CULTURE Microbiology Routine Urinary frequency Ordered: 12/24/2023 [facility] Comment on above: Ordered: 12/24/2023 Bacteria identified in Urine by Culture URINE CULTURE Microbiology Routine Urination frequency Ordered: 01/03/2024 [facility] Work Phone: Comment on above: Ordered: 01/03/2024 Bacteria identified in Urine by Culture BACTERIAL CULTURE, URINE Microbiology Routine Urinary frequency Ordered: 04/26/2024 [facility] Work Phone: Comment on above: Ordered: 04/26/2024 Bacteria identified in Urine by Culture BACTERIAL CULTURE, URINE Microbiology Routine Urinary frequency 05/06/2024 10:56 AM [facility] COVID & INFLUENZA A/ B & RSV PCR, ROUTINE COVID & INFLUENZA A/B & RSV PCR, ROUTINE Microbiology Routine Productive cough Ordered: 04/15/2024 [facility] Work Phone: Comment on above: Ordered: 04/15/2024 End: 08-31-2023 CT BRAIN WO IVCON CT BRAIN WO IVCON Radiology Routine Short-term memory loss Word finding difficulty 1 Occurrences starting 08/01/2022 until 08/31/2023 [facility] Work Phone: Comment on above: 1 Occurrences starting 08/01/2022 until 08/31/2023 End: 12-14-2023 Ct thorax w/o contrast material CT CHEST WO IVCON Radiology Routine Chronic cough Rales 1 Occurrences starting 11/14/2022 until 12/14/2023 [facility] Work Phone: Comment on above: 1 Occurrences starting 11/14/2022 until 12/14/2023 End: 12-14-2023 DXA-AXIAL SKELETON DXA-AXIAL SKELETON Radiology Routine Osteopenia, senile 1 Occurrences starting 11/14/2022 until 12/14/2023 [facility] Work Phone: Comment on above: 1 Occurrences starting 11/14/2022 until 12/14/2023 End: 11-12-2024 EGD - THERAPEUTIC, EUS, OR TUBE INTERVENTIONS EGD - THERAPEUTIC, EUS, OR TUBE INTERVENTIONS Endoscopy Routine Pancreatic cyst 1 Occurrences starting 11/13/2023 until 11/12/2024 [facility] Work Phone: Comment on above: 1 Occurrences starting 11/13/2023 until 11/12/2024 Erythrocyte sedimentation rate SED RATE WESTERGREN Lab Routine Pain due to knee joint prosthesis, initial encounter (HCC) Status post total left knee replacement 01/11/2023 8:08 AM EST [facility] Work Phone: Helicobacter pylori Ag [Presence] in Stool by Immunoassay HELICOBACTER PYLORI ANTIGEN BY EIA, STOOL Microbiology Routine Abnormal findings in stool Ordered: 06/08/2024 [facility] Work Phone: Comment on above: Ordered: 06/08/2024 MR Biliary ducts and Pancreatic duct WO and W contrast IV MRI PANC/ARETHA WO/W IVCON Radiology Routine Pancreas cyst Cystic mass of pancreas Abnormal MRI of abdomen 05/22/2023 6:12 PM EDT [facility] Work Phone: MR Unspecified body region 3D post processing MRI 3D POST PROCESSING Radiology Routine Pancreas cyst Cystic mass of pancreas Abnormal MRI of abdomen 05/22/2023 6:14 PM EDT [facility] Work Phone: End: 02-15-2024 MRI 3D POST PROCESSING MRI 3D POST PROCESSING Radiology Routine Pancreas cyst Cystic mass of pancreas Abnormal MRI of abdomen 1 Occurrences starting 01/16/2023 until 02/15/2024 [facility] Work Phone: Comment on above: 1 Occurrences starting 01/16/2023 until 02/15/2024 Njx anes&/strd w/img tfrml edrl lmbr/sac 1 lvl INJ TRANSFORAMINAL EPID ANES/STER LS SINGL Procedures Routine Spinal stenosis of lumbar region, unspecified whether neurogenic claudication present Degeneration of intervertebral disc of lumbosacral region with discogenic back pain and lower extremity pain Ordered: 08/03/2024 [facility] Work Phone: Comment on above: Ordered: 08/03/2024 Ova and parasites identified in Unspecified specimen by Light microscopy OVA + PARA MICROSCOPIC Microbiology Routine Diarrhea, unspecified type 10/28/2021 8:10 AM EDT [facility] Work Phone: PANC ELASTASE, FECAL PANC ELASTA SE, FECAL Lab Routine Abnormal findings in stool Ordered: 06/08/2024 [facility] Comment on above: Ordered: 06/08/2024 End: 01-05-2023 Radiologic exam colon single contrast study XR DEFECOGRAPHY Radiology Routine Rectocele Enterocele Rectal prolapse 1 Occurrences starting 12/06/2021 until 01/05/2023 [facility] Work Phone: Comment on above: 1 Occurrences starting 12/06/2021 until 01/05/2023 SARS-CoV-2 (COVID-19 ) RNA [Presence] in Respiratory specimen by PRABHA with probe detection COVID NAAT, UPPER RESPIRATORY, ROUTINE Microbiology Routine Acute cough Exposure to COVID-19 virus 10/28/2023 11:28 AM EDT [facility] Work Phone: End: 04-16-2023 Screening colonoscopy COLONOSCOPY SCREENING Endoscopy Routine Screening for colon cancer 1 Occurrences starting 04/16/2022 until 04/16/2023 [facility] Work Phone: Comment on above: 1 Occurrences starting 04/16/2022 until 04/16/2023 UA DIP, URINE (POC) UA DIP, URIN E (POC) Lab Routine Urinary frequency Ordered: 07/20/2021 [facility] Work Phone: Comment on above: Ordered: 07/20/2021 UA DIP, URINE (POC) UA DIP, URIN E (POC) Lab Routine Urinary frequency Ordered: 04/24/2022 [facility] Work Phone: Comment on above: Ordered: 04/24/2022 UA DIP, URINE (POC) UA DIP, URIN E (POC) Lab Routine Urinary frequency Ordered: 04/20/2022 [facility] Work Phone: Comment on above: Ordered: 04/20/2022 UA DIP, URINE (POC) UA DIP, URIN E (POC) Lab Routine Other female genital prolapse Urinary frequency Ordered: 05/08/2022 [facility] Work Phone: Comment on above: Ordered: 05/08/2022 UA DIP, URINE (POC) UA DIP, URIN E (POC) Lab Routine Urinary frequency Ordered: 12/24/2023 [facility] Work Phone: Comment on above: Ordered: 12/24/2023 UA DIP, URINE (POC) UA DIP, URIN E (POC) Lab Routine Urinary frequency Ordered: 05/06/2024 [facility] Work Phone: Comment on above: Ordered: 05/06/2024 URODYNAMICS WHI URODYNAMICS WHI Procedures Routine Urinary incontinence, urge Preoperative examination Ordered: 04/17/2022 [facility] Work Phone: Comment on above: Ordered: 04/17/2022 URODYNAMICS WHI URODYNAMICS WHI Procedures Routine Vaginal vault prolapse Rectocele Cystocele, midline Urinary incontinence, urge Overactive bladder Rectal prolapse Preoperative examination Ordered: 11/26/2022 [facility] Work Phone: Comment on above: Ordered: 11/26/2022 End: 12-24-2024 XR Ankle - right AP and Lateral and oblique XR ANKLE GENERAL 3V AP/LAT/OBL RIGHT Radiology Routine Pain in lateral portion of right ankle 1 Occurrences starting 11/25/2023 until 12/24/2024 [facility] Work Phone: Comment on above: 1 Occurrences starting 11/25/2023 until 12/24/2024 XR Ankle - right AP and Lateral and oblique XR ANKLE GENERAL 3V AP/LAT/OBL RIGHT Radiology Routine Pain in lateral portion of right ankle 11/25/2023 1:20 PM EDT [facility] End: 07-26-2024 XR Chest PA and Lateral XR CHEST 2V FRONTAL/LAT Radiology Routine Acute cough Persistent cough Decreased lung sounds 1 Occurrences starting 06/27/2023 until 07/26/2024 [facility] Work Phone: Comment on above: 1 Occurrences starting 06/27/2023 until 07/26/2024 XR Chest PA and Lateral XR CHEST 2V FRONTAL/LAT Radiology Routine Acute cough Persistent cough Decreased lung sounds 06/27/2023 3:19 PM EDT [facility] XR Chest PA and Lateral XR CHEST 2V FRONTAL/LAT Radiology STAT Acute cough Ordered: 04/26/2024 [facility] Comment on above: Ordered: 04/26/2024 End: 07-23-2022 XR KNEE POST OP 3V AP/LAT/MERCHANT BILATERAL XR KNEE POST OP 3V AP/LAT/MERCHANT BILATERAL Radiology Routine Pain in both knees, unspecified chronicity 1 Occurrences starting 06/23/2021 until 07/23/2022 [facility] Work Phone: Comment on above: 1 Occurrences starting 06/23/2021 until 07/23/2022 XR Lumbar spine 3 Views XR LUMBAR GENERAL 3V AP/LAT/L5-S1 Radiology Routine Chronic left-sided low back pain without sciatica 06/02/2024 12:31 PM EDT [facility] Work Phone: End: 07-02-2025 XR Lumbar spine 3 Views XR LUMBAR GENERAL 3V AP/LAT/L5-S1 Radiology Routine Chronic left-sided low back pain without sciatica 1 Occurrences starting 06/02/2024 until 07/02/2025 [facility] Work Phone: Comment on above: 1 Occurrences starting 06/02/2024 until 07/02/2025 XR Thoracic spine AP and Lateral and Swimmers XR THORACIC GENERAL 3V AP/LAT/SWIMMERS Radiology Routine Chronic left-sided low back pain without sciatica 06/02/2024 12:31 PM EDT [facility] End: 07-02-2025 XR Thoracic spine AP and Lateral and Swimmers XR THORACIC GENERAL 3V AP/LAT/SWIMMERS Radiology Routine Chronic left-sided low back pain without sciatica 1 Occurrences starting 06/02/2024 until 07/02/2025 [facility] Comment on above: 1 Occurrences starting 06/02/2024 until 07/02/2025 [facility] Immunizations Immunization Date Immunization Notes Care Provider [facility] 11-23-2022 tetanus toxoid, reduced diphtheria toxoid, and acellular pertussis vaccine, adsorbed Nel Zayas MD Work Phone: [facility] 07-11-2020 tetanus toxoid, reduced diphtheria toxoid, and acellular pertussis vaccine, adsorbed Efra Stinson MD Work Phone: [facility] 02-03-2020 influenza, high-dose , quadrivalent vaccine (FLUZONE HIGH DOSE QUADRIVALENT) Efra Stinson MD Work Phone: [facility] Work Phone: 02-03-2020 influenza virus vaccine, unspecified formulation Johnie Aguirre APRN.BACKWINDER Work Phone: [facility] 05-08-2019 influenza, high dose seasonal, preservative-free Efra Stinson MD Work Phone: [facility] Work Phone: 09-08-2012 zoster vaccine, live Efra Card MD Work Phone: [facility] 04-04-2012 tetanus toxoid, reduced diphtheria toxoid, and acellular pertussis vaccine, adsorbed Efra Stinson MD Work Phone: [facility] Payers Date Payer Category Payer Self-pay [id number] 2022 Medicare (Managed Care) MMO [employer] O [id number] 2022 Medicare [id number] 2021 Medicare AETNA MEDICARE A ETNA MEDICARE PPO [id number] 2021-Present [phone] [address] [place] [address] PPO [id number] 2016 Medicare [id number] 2016 Private Health Insurance [id number] 2016 Unknown [facility] [id number] 2013 Unknown [id number] 2013 Unknown [id number] 1940 Unknown [id number] Unknown [id number] Unknown [id number] Unknown [id number] Unknown [id number] Unknown [id number] Unknown [id number] Social History Date Type Detail Facility Start: 09-09-2010 End: 10-27-2021 Tobacco smoking status NHIS Never smoked tobacco [facility] Start: 06-07-2021 End: 06-02-2024 Alcohol intake Current non-drinker of alcohol (finding) [facility] Start: 1940 Sex Assigned At Not on file [facility] Start: 09-03-2020 End: 01-22-2022 Exposure to SARS-CoV-2 (event) Not sure [facility] Work Phone: Start: 09-07-2016 End: 09-07-2016 Tobacco smoking status NHIS Unknown if ever smoked [facility] Start: 1940 Sex Assigned At Female [facility] Start: 09-09-2010 End: 10-27-2021 Tobacco use and exposure Smokeless tobacco non-user [facility] Work Phone: Start: 09-07-2016 None [facility] Start: 09-07-2016 Spouse/ Signif icant Other [facility] Start: 07-19-2022 End: 09-20-2022 History of Social function [facility] Start: 07-19-2022 End: 09-20-2022 Tobacco use panel [facility] Adult Depression Screening Assessment 0 [facility] Tobacco smoking status No Smokin g Status Entered [facility] Medical Equipment Procedure Code Equipment Code Equipment Origin al Text Equipment Identifier Dates Cement Simplex P Bone Radiopaque Full Dose Sterile - [id number] Start: 06-03-2017 Cement Simplex P Bone Radiopaque Full Dose Sterile - [id number] Start: 03-28-2020 Triathlon X3 Tib ial Bearing - Cr Size 2 9mm [id number] Start: 03-28-2020 Component Triath niki 1 Femoral Cruciate Retain Cemented Knee Right - [id number] Start: 06-03-2017 Baseplate Triath niki 1 Tibial Primary Cement Knee - [id number] Start: 06-03-2017 Insert Triathlon 1 X3 9mm Tibial Condylar Stabilized Knee - [id number] Start: 06-03-2017 Component Triath niki 29mm Asymmetric X3 9mm Patellar Total Knee - [id number] Start: 06-03-2017 Component Triath niki 2 Femoral Cruciate Retain Cemented Knee Left - [id number] Start: 03-28-2020 Component Triath niki 32mm 10mm Patellar Asymmetric Knee - [id number] Start: 03-28-2020 Baseplate Triath niki 2 Tibial Primary Cement Knee - [id number] Start: 03-28-2020 Functional Status Date Assessment Result Facility 01-19-2023 Functional Status Independent Mary Ann Jayme bhatt [facility] 01-19-2023 Functional Status Ambulation in Room [facility] 03-29-2020 Are you deaf, or do you have serious difficulty hearing No 03/29/2020 3:17 PM Dania Kilpatrick RN No [facility] 03-29-2020 Are you blind, or do you have serious difficulty seeing, even when wearing glasses No 03/29/2020 3:17 PM Dania Kilpatrick RN No [facility] 03-29-2020 Do you have serious difficulty walking or climbing stairs No 03/29/2020 3:17 PM Dania Kilpatrick RN No [facility] 03-29-2020 Do you have difficul ty dressing or bathing No 03/29/2020 3:17 PM Dania Kilpatrick RN No [facility] 03-29-2020 Because of a physica l, mental, or emotional condition, do you have difficulty doing errands alone such as visiting a physician's office or shopping No 03/29/2020 3:17 PM Dania Kilpatrick RN No [facility] Mental Status Date Assessment Result Facility 01-19-2023 Mental Status Orientation Oriented x 4 [facility] 01-19-2023 Mental Status [facility] 03-29-2020 Because of a physica l, mental, or emotional condition, do you have serious difficulty concentrating, remembering, or making decisions No 03/29/2020 3:17 PM Dania Kilpatrick RN No [facility] Clinical Notes 06-04-2017 to 08-08-2024 America Mendez APRN.KEVIN - 08/08/2024 2:19 PM EDTPatient InstructionsTelephone Encounter - Nell Barnett RN - 08/08/2024 12:01 PM EDTTelephone Encounter - Payal Godoy RN - 08/03/2024 2:28 PM EDT Note Date & Type Note Facility 08-08-2024 Note HNO ID: [id number] Author: AMERICA MENDEZ APRN.KEVIN Service: ? Author Type: Nurse Practitioner Type: Progress Notes Filed: 08/08/2024 14:21 Note Text: This note was created using [employer]. Subjective Anaya Wilson is a 84 year [...] PCP if symptoms not improving America Mendez APRN.BACKWINDER [facility] 06-07-2025 History of Present illness Narrative This note was created using [employer]Know[employer]. Subjective Anaya Wilson is a 84 year [...] America Mendez APRN.KEVIN documented in this encounter [facility] 08-08-2024 Instructions America Mendez APRN.CNP - [...] are not improving. documented in this encounter [facility] 08-08-2024 Telephone encounter Note Pt called in and reports she was out side and didn't have sunscreen on and got a blister on her cheek. Pt reports she picked the scab off. I told her if she were worried about infection to come into [facility] they are open until 330. Nell Barnett RN [facility] 08-08-2024 Miscellaneous Notes Pt called in and reports she was out side and didn't have sunscreen on and got a blister on her cheek. Pt reports she picked the scab off. I told her if she were worried about infection to come into [facility] they are open until 330. Nell Barnett, ROBERT documented in this encounter [facility] 08-06-2024 Telephone encounter Note Patient returned call and went over results, notes from express care provider with understanding. [facility] 08-06-2024 Miscellaneous Notes Patient returned call and went over results, notes from express care provider with understanding. Phoned patient left message to return call and ask to speak to a nurse. Urine culture negative for bacterial growth. She can follow up with PCP for continued symptoms. Please advise documented in this encounter [facility] 08-06-2024 Telephone encounter Note Phoned patient left message to return call and ask to speak to a nurse. [facility] 08-05-2024 Telephone encounter Note Urine culture negative for bacterial growth. She can follow up with PCP for continued symptoms. Please advise [facility] Work Phone: 08-04-2024 Note HNO ID: [id number] Author: KYM LEWIS PA Service: ? Author Type: Physician Service Cashier Type: Progress Notes Filed: 08/04/2024 16:02 Note Text: [facility] Subjective Anaya Wilson is a 84 [...] 1-2 days with culture results. Recording using [employer] software for draft documentation of the visit was discussed with the patient/authorized sales donor recruitment representative; all questions welcomed and answered. Patient/authorized sales donor recruitment representative agreed to proceed History and Record Review External record(s) reviewed: prior outpatient record. Differential Diagnoses - urinary frequency is more likely for the following reason(s): suggested by HANDP - uti is less likely for the following reason(s): laboratory studies not suggestive Disposition The patient was discharged. Procedures [facility] 08-03-2024 Telephone encounter Note Informed patient via telephone of Dr. Romero's review and recommendations. Patient verbalized understanding and requested that the office call back and leave same spiel on her voicemail for her spouse to review. Voicemail left per request. Patient to contact office if/when ready to schedule injection procedure. [facility] 08-03-2024 Miscellaneous Notes Informed patient via [...] injection order placed. documented in this encounter [facility] 08-03-2024 Telephone encounter Note Injection order signed off [facility] [facility] Work Phone: 08-03-2024 Telephone encounter Note [...] patient via telephone once injection order placed. [facility] 07-29-2024 History of Present illness Narrative [...] PATIENT PRESENTS WITH AN IMPLANTABLE OR ATTACHED NUCLEAR DESIGN ENGINEER: No RADIOLOGY DEPARTMENT: MR; Exam(s) Completed: Spine: Lumbar spine. Lavender Administered: No PERIPHERAL IV DATA: Not applicable SIGNED BY: RT Julissa(R) July 29, 2024 8:40 AM documented in this encounter [facility] 07-29-2024 Note HNO ID: [id number] Author: INES BENTON RT(R) Service: ? Author [...] PATIENT PRESENTS WITH AN IMPLANTABLE OR ATTACHED NUCLEAR DESIGN ENGINEER: No RADIOLOGY DEPARTMENT: MR; Exam(s) Completed: Spine: Lumbar spine. Lavender Administered: No PERIPHERAL IV DATA: Not applicable SIGNED BY: RT Julissa(R) July 29, 2024 8:40 AM [facility] 07-23-2024 Note HNO ID: [id number] Author: MARY KEITH APRN.BACKWINDER Service: ? Author Type: Nurse Practitioner Type: Progress Notes Filed: 07/23/2024 15:13 Note Text: [facility] Date: July 23, 2024 [...] She completed 1 session on 04/06/24 at [facility] in [place]. Spinal Injections: She has not gotten prior [...] HX JOINT RE (more content not included)... [facility] 06-30-2024 Instructions Lani Arndt PA-C - 06/30/2024 4:[address] MARGARET BACON [phone] documented in this encounter [facility] 06-30-2024 History of Present illness Narrative [...] PATIENT PRESENTS WITH AN IMPLANTABLE OR ATTACHED NUCLEAR DESIGN ENGINEER: No RADIOLOGY DEPARTMENT: General X-ray: Exam(s) Completed: Lower Extremity X-Ray(s): Ankle, Right PERIPHERAL IV DATA: Not applicable SIGNED BY: RT Erica(Boogie) June 30, 2024 4:00 PM documented in this encounter [facility] 06-30-2024 Note HNO ID: [id number] Author: JERMAINE KRUGER RT(Boogie) Service: ? Author Type: Tape Maker Type: Progress Notes Filed: 06/30/2024 16:15 Note [...] PATIENT PRESENTS WITH AN IMPLANTABLE OR ATTACHED NUCLEAR DESIGN ENGINEER: No RADIOLOGY DEPARTMENT: General X-ray: Exam(s) Completed: Lower Extremity X-Ray(s): Ankle, Right PERIPHERAL IV DATA: Not applicable SIGNED BY: RT Erica(R) June 30, 2024 4:00 PM [facility] 06-30-2024 Note HNO ID: [id number] Author: LANI ARNDT PA-C Service: ? Author Type: Physician Service Cashier Type: Progress Notes Filed: 06/30/2024 16:47 Note Text: This note was created using [employer]. Subjective Anaya Wilson is a 84 year [...] procedures: low Management options: devante Arndt PA-C [facility] 06-30-2024 History of Present illness Narrative This note was created using [employer]. Subjective Anaya Wilson is a 84 year [...] Lani Arndt PA-C documented in this encounter [facility] 06-24-2024 Telephone encounter Note Pt informed Ivette Valenzuela MA [facility] 06-24-2024 Miscellaneous Notes Pt informed Ivette Valenzuela MA Please let her know that her pancreatic elastase and H pylori stool testing is normal appearing Edenilson Nicholson DO documented in this encounter [facility] 06-24-2024 Telephone encounter Note Please let her know that her pancreatic elastase and H pylori stool testing is normal appearing Edenilson Nicholson DO [facility] 06-09-2024 Telephone encounter Note Phoned patient went over results, notes from Boogie Monterroso NP with understanding. Assisted with transfer to surgery scheduler to get pain management appt set up. [facility] 06-09-2024 Miscellaneous Notes Phoned patient went over results, notes from Boogie Monterroso NP with understanding. Assisted with transfer to surgery scheduler to get pain management appt set up. 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 I would like her to see pain management for evaluation of this. I do question if her left back/flank pain could be r/t this. Please assist her to schedule. 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 I would like her to see pain management for evaluation of this. I do question if her left back/flank pain could be r/t this. Please assist her to schedule. Angeline Monterroso APRN.CNP [facility] 06-08-2024 Note HNO ID: [id number] Author: EDENILSON NICHOLSON DO Service: ? Author Type: Physician Type: Progress Notes Filed: 06/10/2024 21:15 Note Text: CC: Anaya Wilson is a 84 year old female who presents to the office for follow up HPI: She is present with her in the office today Was seen in the ER at [facility] on 03/23 (2 days ago) for left [...] Caffeine Codeine Darv (more content not included)... [facility] 06-08-2024 History of Present illness Narrative CC: Anaya Wilson is a 84 year old female who presents to the office for follow up HPI: She is present with her in the office today Was seen in the ER at [facility] on 03/23 (2 days ago) for left [...] ICD9: 696.0, ICD10: L40.50 Chronic, f/u with It Risk And Assurance Manager Edenilson Nicholson DO I spent 44 minutes in the visit, with more than 50% of the total [id number]-[id number] time of the visit in counseling / coordination of care. Return if no improvement. Follow up with Edenilson Nicholson DO. To ER if develops chest pain, shortness of breath. Discussed risks, benefits, alternatives, and potential side effects of medications. Patient/Guardian expressed understanding and agreed with the plan. See patient instructions. Edenilson Nicholson DO [address] [place] [address] documented in this encounter [facility] 06-03-2024 Note HNO ID: [id number] Author: ANGELINE MONTERROSO APRN.BACKWINDER Service: ? Author Type: Nurse Practitioner Type: Progress Notes Filed: 06/03/2024 15:11 Note Text: 06/03/2024 The patient consented to the use of [employer] software for draft documentation of the visit consistent with [facility]?s Notice of Privacy Practices. HPI: Anaya [...] Nausea and vom (more content not included)... [facility] 06-03-2024 History of Present illness Narrative 06/03/2024 The patient consented to the use of [employer] software for draft documentation of the visit consistent with [facility] s Notice of Privacy Practices. HPI: [...] Left medial tibial stress syndrome, initial encounter (P34.301E) - Intermittent pain in the left romero area, likely consistent with medial tibial stress syndrome. - Advised application of ice and stretching exercises to alleviate symptoms. - Encouraged regular physical activity to strengthen the affected area. The patient indicates understanding of these issues and agrees with the plan. Red flag symptoms reviewed as needed. Follow up: Angeline Monterroso APRN.CNP documented in this encounter [facility] 06-03-2024 Telephone encounter Note Prescription Refill [...] Nola Joy June 03, 2024 11:03 AM [facility] 06-03-2024 Miscellaneous Notes Prescription Refill Information [...] 2024 11:03 AM documented in this encounter [facility] 06-02-2024 History of Present illness Narrative [...] PATIENT PRESENTS WITH AN IMPLANTABLE OR ATTACHED NUCLEAR DESIGN ENGINEER: No RADIOLOGY DEPARTMENT: General X-ray: Exam(s) Completed: Spine X-Ray(s): Thoracic and Lumbar AP / LAT / L5-S1 PERIPHERAL IV DATA: Not applicable SIGNED BY: RT Boy(R) June 02, 2024 12:19 PM documented in this encounter [facility] 06-02-2024 Note HNO ID: [id number] Author: GRACE CR RT(R) Service: Radiology Author [...] PATIENT PRESENTS WITH AN IMPLANTABLE OR ATTACHED NUCLEAR DESIGN ENGINEER: No RADIOLOGY DEPARTMENT: General X-ray: Exam(s) Completed: Spine X-Ray(s): Thoracic and Lumbar AP / LAT / L5-S1 PERIPHERAL IV DATA: Not applicable SIGNED BY: RT Boy(R) June 02, 2024 12:19 PM [facility] 05-08-2024 Telephone encounter Note Spoke with pt gave information provided. Pt voices understanding. [facility] 05-08-2024 Miscellaneous Notes Spoke with pt gave information provided. Pt voices understanding. PLease call patient and let her know that urine culture was negative. Continue with antibiotic if giving relief. Thank you, Kandi Park APRN.BACKWINDER documented in this encounter [facility] 05-08-2024 Telephone encounter Note PLease call patient and let her know that urine culture was negative. Continue with antibiotic if giving relief. Thank you, Kandi Park APRN.BACKWINDER [facility] 05-06-2024 History of Present illness Narrative Chief Complaint Patient presents with: Urinary Frequency: For about 2-3 days completed celphalexin on 05/03 HPI Anaya Wilson is a 84 year old female who presents here today for Above Complaints. Anaya is an established patient of Dr. Bharat DO. Concerns today.. Was seen at [facility] on 04/26 d/t urinary urgency/frequency and cough/congestion. 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 Kandi Contreras APRN.BACKWINDER [address] [place] [address] documented in this encounter [facility] 05-06-2024 Note HNO ID: [id number] Author: KANDI PARK APRN.KEVIN Service: ? Author Type: Nurse Practitioner Type: Progress Notes Filed: 05/06/2024 11:24 Note Text: Chief Complaint Patient presents with: Urinary Frequency: For about 2-3 days completed celphalexin on 05/03 HPI Anaya Wilson is a 84 year old female who presents here today for Above Complaints. Anaya is an established patient of Dr. Bharat DO. Concerns today.. Was seen at [facility] on 04/26 d/t urinary urgency/frequency and cough/congestion. [...] tablet by mo (more content not included)... [facility] 04-30-2024 History of Present illness Narrative [...] PATIENT PRESENTS WITH AN IMPLANTABLE OR ATTACHED NUCLEAR DESIGN ENGINEER: No ALLERGIES: Reviewed and unchanged CONTRAST ALLERGY: NO. EXAM: MRI - CONTRAST TYPE: GROUP II PERIPHERAL IV DATA: Ambulatory: A peripheral IV was started in the Left antecubital site with a Angio cath: 22 gauge. RADIOLOGY DEPARTMENT: MR; Exam(s) Completed: Body: Pancreas/Biliary SIGNATURE: RT Bhargav(Boogie) PATIENT NAME: Anaya Wilson DATE: April 30, 2024 TIME: 11:40 AM documented in this encounter [facility] 04-30-2024 Note HNO ID: [id number] Author: SONG WELCH RT(R) Service: ? Author [...] PATIENT PRESENTS WITH AN IMPLANTABLE OR ATTACHED NUCLEAR DESIGN ENGINEER: No ALLERGIES: Reviewed and unchanged CONTRAST ALLERGY: NO. EXAM: MRI - CONTRAST TYPE: GROUP II PERIPHERAL IV DATA: Ambulatory: A peripheral IV was started in the Left antecubital site with a Angio cath: 22 gauge. RADIOLOGY DEPARTMENT: MR; Exam(s) Completed: Body: Pancreas/Biliary SIGNATURE: RT Bhargav(R) PATIENT NAME: Anaya Wilson DATE: April 30, 2024 TIME: 11:40 AM [facility] 04-29-2024 Telephone encounter Note Prescription Refill [...] Elise Jones April 29, 2024 11:33 AM [facility] 04-29-2024 Miscellaneous Notes Prescription Refill Information [...] 2024 11:33 AM documented in this encounter [facility] 04-27-2024 Telephone encounter Note Patient returned call and given provider's message below and patient verbalized understanding. Tariq Harkins RN [facility] 04-27-2024 Miscellaneous Notes Patient returned call and given provider's message below and patient verbalized understanding. Tariq Harkins RN Message left for pt to call back for results. Ramona Cantrell MA Please notify chest ray normal, likely viral illness. Continue with atb for uti. F/u with pcp if cough persist 1 week. Urgent f/u for worsening s/s documented in this encounter [facility] 04-27-2024 Telephone encounter Note Message left for pt to call back for results. Ramona Cantrell MA [facility] 04-27-2024 Telephone encounter Note Please notify chest ray normal, likely viral illness. Continue with atb for uti. F/u with pcp if cough persist 1 week. Urgent f/u for worsening s/s [facility] 04-27-2024 History of Present illness Narrative [...] PATIENT PRESENTS WITH AN IMPLANTABLE OR ATTACHED NUCLEAR DESIGN ENGINEER: No RADIOLOGY DEPARTMENT: General X-ray: Exam(s) Completed: Chest X-Ray PERIPHERAL IV DATA: Not applicable SIGNED BY: RT Erica(Boogie) April 27, 2024 11:31 AM documented in this encounter [facility] 04-27-2024 Note HNO ID: [id number] Author: JERMAINE KRUGER RT(R) Service: ? Author Type: Tape Maker Type: Progress Notes Filed: 04/27/2024 11:38 Note [...] PATIENT PRESENTS WITH AN IMPLANTABLE OR ATTACHED NUCLEAR DESIGN ENGINEER: No RADIOLOGY DEPARTMENT: General X-ray: Exam(s) Completed: Chest X-Ray PERIPHERAL IV DATA: Not applicable SIGNED BY: Jermaine Kruger, RT(R) April 27, 2024 11:31 AM [facility] 04-26-2024 Note HNO ID: [id number] Author: SHERRIE GONZALES APRN.BACKWINDER Service: ? Author Type: Nurse Practitioner Type: [...] for flank emory (more content not included)... [facility] 04-26-2024 History of Present illness Narrative Subjective HPI HPI Anaay Wilson is a 84 year old female [...] - BENZONATATE 100 MG CAPSULE Sherrie Gonzales APRN.BACKWINDER documented in this encounter [facility] 04-26-2024 Instructions Sherrie Gonzales APRN.BACKWINDER - 04/26/2024 1:34 PM EST Return tomorrow [...] or fluids down. documented in this encounter [facility] 04-17-2024 Telephone encounter Note Patient calls and notified of results and providers instructions. Patient verbalizes understanding. Armida Warren RN [facility] 04-17-2024 Miscellaneous Notes Patient calls and [...] in 1 week. documented in this encounter [facility] 04-17-2024 Telephone encounter Note Tried to reach pt, line just rings. Ramona Cantrell MA [facility] 04-17-2024 Telephone encounter Note ----- Message from To Sibley MD sent at 04/16/2024 10:23 AM EST ----- Negative for COVID/flu/RSV. Continue supportive care for symptoms as discussed and call if cough is worsening or she develops fever/chills, SOB, or wheezing. Return to office if not improving in 1 week. [facility] 04-15-2024 Note SARS-COV-2 (AGENT OF COVID-19) RNA: Not detected INFLUENZA A RNA: Not detected INFLUENZA B RNA: Not detected RESPIRATORY SYNCYTIAL VIRUS (RSV) RNA: Not detected [facility] Comment on above: Performed By: #### 6 30-4 #### [facility] CLIA [id number] [address] [facility] [address] [place] 04-15-2024 Note HNO ID: [id number] Author: TO SIBLEY MD Service: ? Author [...] use: No Vasu (more content not included)... [facility] 04-15-2024 History of Present illness Narrative [...] To Sibley MD documented in this encounter [facility] 04-15-2024 Telephone encounter Note Pt called in and reports she has a cough and is bringing up slightly yellow mucus. Pt denies runny nose, SOB, and wheezing. Pt does not know if she has been running a fever. Pt scheduled with Dr Sibley today at 1240. [facility] 04-15-2024 Miscellaneous Notes Pt called in and reports she has a cough and is bringing up slightly yellow mucus. Pt denies runny nose, SOB, and wheezing. Pt does not know if she has been running a fever. Pt scheduled with Dr Sibley today at 1240. documented in this encounter [facility] 04-06-2024 Note HNO ID: [id number] Author: KATHRYN FLORES PT Service: ? Author [...] Planned: 1 Planned Treatment Interventions: Therapeutic exercise (31423), Self-fdc management (48513) PLAN FOR NEXT VISIT: DC -- symptoms [...] Demonstration TREATMENT: PT Treatment Interventions: Therapeutic Exercise, Self-Long Term Management Evaluation Therapeutic Exercise: 1: *Access Code: [email or web address] URL: [email or web address]/ Date: 04/06/2024 Prepared by: Kathryn Flores Exercises [...] , increase ea (more content not included)... [facility] 04-06-2024 History of Present illness Narrative [...] Planned: 1 Planned Treatment Interventions: Therapeutic exercise (16007), Self-fdc management (59336) PLAN FOR NEXT VISIT: DC -- symptoms [...] house but is considering going back to [facility]. Denies pain with any movement, [...] Demonstration TREATMENT: PT Treatment Interventions: Therapeutic Exercise, Self-Long Term Management Evaluation Therapeutic Exercise: 1: *Access Code: [email or web address] URL: [email or web address] Date: 04/06/2024 Prepared by: Kathryn Mane'Keyon Exercises [...] and function . Patient education as noted. Self-Long Term Management: 1: discussed safe way of lifting/carrying [...] Kathryn Flores PT documented in this encounter [facility] 04-02-2024 Telephone encounter Note Prescription Refill [...] by mouth daily at bedtime. Nicole Cifuentes [facility] April 02, 2024 10:17 AM [facility] 04-02-2024 Miscellaneous Notes Prescription Refill Information [...] by mouth daily at bedtime. Nicole Cifuentes [facility] April 02, 2024 10:17 AM documented in this encounter [facility] 03-25-2024 Telephone encounter Note Images from the original note were not included. Electronic PA rec'd and completed for cyclobenzapine. This was approved. Prior authorization approved Payer: [employer] [phone] Note from payer: CaseId:[id number];Status:Approved;R eview Type:Prior Auth;Coverage Start Date:02/24/2024;Coverage End Date:03/25/2025; Approval Details Authorized from February 24, 2024 to March 25, 2025 Electronic appeal: Not supported View History Pharmacy Benefits Open Encounter ANAYA WILSON [facility] ([facility]) ([employer]) Covered: Retail, Mail Order Unknown: Specialty, Long-Term Care BIN: [id number] : 1940 Group ID: [id number] PCN: Legal sex: F Group name: [employer] Address: [address] [place] [address] [place] [id number] Medication Being Authorized cyclobenzaprine (FLEXERIL) 5 mg tablet Take 1 tablet by mouth three times a day as needed. Dispense: 30 tablet Refills: 1 Start: 03/25/2024 Class: Normal Diagnoses: Acute left-sided low back pain without sciatica This order has been released to its destination. To be filled at: e- [id number] [place] [address] - [address] [facility] [phone] 4[address] [facility] 03-25-2024 Miscellaneous Notes Images from the original note were not included. Electronic PA rec'd and completed for cyclobenzapine. This was approved. Prior authorization approved Payer: [employer] [phone] Note from payer: CaseId:[id number];Status:Approved;R eview Type:Prior Auth;Coverage Start Date:02/24/2024;Coverage End Date:03/25/2025; Approval Details Authorized from February 24, 2024 to March 25, 2025 Electronic appeal: Not supported View History Pharmacy Benefits Open Encounter ANAYA WILSON - [facility] ([facility]) ([employer]) Covered: Retail, Mail Order Unknown: Specialty, Long-Term Care BIN: [id number] : 1940 Group ID: [id number] PCN: Legal sex: F Group name: [employer] Address: [address] [facility] [address] Medication Being Authorized cyclobenzaprine (FLEXERIL) 5 mg tablet Take 1 tablet by mouth three times a day as needed. Dispense: 30 tablet Refills: 1 Start: 03/25/2024 Class: Normal Diagnoses: Acute left-sided low back pain without sciatica This order has been released to its destination. To be filled at: [employer] [id number] [place] [address] [address] [facility] [phone] [id number] documented in this encounter [facility] 03-25-2024 Note HNO ID: [id number] Author: ANGELINE MONTERROSO APRN.BACKWINDER Service: ? Author Type: Nurse Practitioner Type: Progress Notes Filed: 03/25/2024 11:35 Note Text: Chief Complaint Patient presents with: ER F/U: Left side abd pain, muscle strain HPI Anaya Wilson is a 84 year old female who presents here today for Above Complaints.. Was seen in the ER at [facility] on 03/23 (2 days ago) for left [...] Regular Adult) Pul (more content not included)... [facility] 03-25-2024 History of Present illness Narrative Chief Complaint Patient presents with: ER F/U: Left side abd pain, muscle strain HPI Anaya Morrow Jaylyn is a 84 year old female who presents here today for Above Complaints.. Was seen in the ER at [facility] on 03/23 (2 days ago) for left [...] - ICD9: 300.02, ICD10: F41.1 rosa Monterroso APRN.BACKWINDER documented in this encounter [facility] 03-23-2024 Telephone encounter Note TC to patient and spouse who are both notified of providers message below. Patient verbalized understanding and will continue to push fluids and monitor output. JEFF Morrison [facility] 03-23-2024 Miscellaneous Notes TC to patient [...] return to ER. Thank you, Kandi Park APRN.BACKWINDER Patient returning call and states she last [...] possible urination retention. Thank you, Kandi Park APRN.BACKWINDER Pt called to reports she went to [facility] ER today 03-23-24 due to left lower side pain. Pt home now and not urinating list she normally does. Pt getting fluids in but not putting out urine.. Pt concerned. Pt also has been scheduled for ER FU on 03/25/24. Please review and advise pt regarding urination. Hilaria Cifuentes LPN documented in this encounter [facility] 03-23-2024 Telephone encounter Note Urinary retention is not a common side effect of toradol. I recommend continuing to push fluids and monitor output, even if any incontinence. If no urine output in a total of 24 hours, then needs to return to ER. Thank you, Kandi Park APRN.BACKWINDER [facility] 03-23-2024 Telephone encounter Note Patient returning call and states she last urinated this morning approximately 6-7am. Reports she usually urinates more often than this. Spouse reports they gave patient Toradol for pain at the ED this monring and he wonders if this is contributing. Cherrie Harkins, RN [facility] 03-23-2024 Telephone encounter Note Exactly how [...] possible urination retention. Thank you, Kandi Park APRN.BACKWINDER [facility] 03-23-2024 Telephone encounter Note Pt called to reports she went to [facility] ER today 03-23-24 due to left lower side pain. Pt home now and not urinating list she normally does. Pt getting fluids in but not putting out urine.. Pt concerned. Pt also has been scheduled for ER FU on 03/25/24. Please review and advise pt regarding urination. Hilaria Cifuentes LPN [facility] 01-25-2024 Note HNO ID: [id number] Author: AMERICA MENDEZ APRN.BACKWINDER Service: ? Author Type: Nurse Practitioner Type: Progress Notes Filed: 01/25/2024 11:51 Note Text: This note was created using [employer]. Subjective Anaya Wilson is a 83 year [...] Discussed with patient that she could use icxq-vjo-xaznxqv numbing medication as needed for discomfort. I recommended that she does follow-up closely with either her PCP or dentist and return if symptoms seem to be worsening. America Mendez APRN.[facility] 01-25-2024 History of Present illness Narrative This note was created using [employer]. Subjective Anaya Wilson is a 83 year [...] Discussed with patient that she could use tlhl-xgx-zvkmzfc numbing medication as needed for discomfort. I recommended that she does follow-up closely with either her PCP or dentist and return if symptoms seem to be worsening. America Mendez APRN.KEVIN documented in this encounter [facility] 01-24-2024 Telephone encounter Note Noted [facility] 01-24-2024 Miscellaneous Notes Noted Patient calling to let PCP know that she saw Dr. Gandhi @ [facility] today for psoriasis. Dr. Gandhi prescribed Otezla 10 mg x 4 days, 20 mg x 4 days then 30 mg daily. She discontinued Methotrexate. Elizabeth Perez RN documented in this encounter [facility] 01-23-2024 Telephone encounter Note Patient calling to let PCP know that she saw Dr. Gandhi @ [facility] today for psoriasis. Dr. Gandhi prescribed Otezla 10 mg x 4 days, 20 mg x 4 days then 30 mg daily. She discontinued Methotrexate. Elizabeth Perez RN [facility] 01-22-2024 Note HNO ID: [id number] Author: EDENILSON NICHOLSON, DO Service: ? Author [...] ONCE A WEEK FOR 2 WEEKS fluocinolone-skin xrpko16-xrtg 0.01 % kit Apply to affected area [...] status: Never Sm (more content not included)... [facility] 01-22-2024 History of Present illness Narrative [...] ONCE A WEEK FOR 2 WEEKS fluocinolone-skin -fzuq 0.01 % kit Apply to affected area [...] ICD9: 696.0, ICD10: L40.50 Follow up with It Risk And Assurance Manager She just recently was restarted on methotrexate [...] plan. See patient instructions. Edenilson Nicholson DO [address] [place] [address] documented in this encounter [facility] 01-22-2024 Instructions Edenilson Nicholson DO - 01/22/2024 11:06 AM EST Ketoconazole cream on nail with a bandaid daily If nail doesn't improve, then need to consider doing a Lamisil pill daily documented in this encounter [facility] 01-15-2024 Telephone encounter Note Patient informed and verbalized understanding. Hanna Couch MA [facility] 01-15-2024 Miscellaneous Notes Patient informed and verbalized understanding. Hanna Couch MA Not recommend at the time of her visit with Angeline. Advise following up with [facility] as she has been following with them [...] Elisabeth Rico LPN documented in this encounter [facility] 01-14-2024 Telephone encounter Note Not recommend at the time of her visit with Angeline. Advise following up with [facility] as she has been following with them for this skin lesion/wound. If develops worsening/spreading redness, warmth, pain, red streaking, fever, needs to be seen in the office to reevaluate. Claire Biggs PA-C 01/14/2024 [facility] Work Phone: 01-10-2024 Telephone encounter Note [...] Now toes are not swollen. Protocols used: Leovr-DUBWD-AL [facility] 01-10-2024 Miscellaneous Notes Reason for Call: [...] Now toes are not swollen. Protocols used: Hrpff-FOEVL-EP documented in this encounter [facility] 01-10-2024 Telephone encounter Note PATIENT is wanting to know if she needs and antibiotic for her right foot- redness. Patient was also seen by Rhina Snowden as well and they did not give an antibiotic either. Patient is wondering if she needs one? Please review and advise and call patient back Elisabeth Rico LPN [facility] 01-10-2024 Telephone encounter Note Patient's calls and is requesting refills. also asking if he can excelsior picker a copy of after visit summary [...] Jones RN January 10, 2024 9:22 AM [facility] 01-10-2024 Miscellaneous Notes Patient's calls and is requesting refills. also asking if he can excelsior picker a copy of after visit summary [...] 2024 9:22 AM documented in this encounter [facility] 01-09-2024 Note HNO ID: [id number] Author: ANGELINE MONTERROSO APRN.BACKWINDER Service: ? Author Type: Nurse Practitioner Type: Progress Notes Filed: 01/13/2024 12:59 Note Text: Chief Complaint Patient presents with: Urinary Frequency Rash: R heel, warm to touch, red and swollen, saw [facility] and was prescribed Tapinarof cream, Derm took Cx- neg HPI Anaya Wilson is a 83 year old female who presents here today for Above Complaints.. Urinary frequency-was seen in [facility] on 01/02, did not get results of urinary culture back yet. States her urinary frequency isn't any worse than it typically is, especially when she drinks a lot of water. Denies other urinary sx. Right heel-saw [facility] last week, going back in a month. [...] ONCE A WEEK FOR 2 WEEKS fluocinolone-skin mmosp26-iijm 0.01 % kit Apply to affected area [...] 0.1 % ophthalmi (more content not included)... [facility] 01-09-2024 History of Present illness Narrative Chief Complaint Patient presents with: Urinary Frequency Rash: R heel, warm to touch, red and swollen, saw [facility] and was prescribed Tapinarof cream, Derm took Cx- neg HPI Anaya Morrow Jaylyn is a 83 year old female who presents here today for Above Complaints.. Urinary frequency-was seen in [facility] on 01/02, did not get results of urinary culture back yet. States her urinary frequency isn't any worse than it typically is, especially when she drinks a lot of water. Denies other urinary sx. Right heel-saw [facility] last week, going back in a month. [...] ONCE A WEEK FOR 2 WEEKS fluocinolone-skin ymhsa94-msru 0.01 % kit Apply to affected area [...] Patient and her are already heading to [facility] today to get another sample of [...] with this medication and tx. Angeline Monterroso APRN.BACKWINDER Greater than 50% of 42-minute visit spent face to face with patient in counseling and education. documented in this encounter [facility] 01-03-2024 Note HNO ID: [id number] Author: KATHRYN PEARSON APRN.BACKWINDER Service: ? Author Type: Nurse Practitioner Type: Progress Notes Filed: 01/03/2024 12:24 Note Text: This note was created using [employer]. Subjective Anaya Wilson is a 83 year [...] by the patient and the spouse. No humanities and languages professor was used. PAST MEDICAL HISTORY Diagnosis Date [...] ONCE A WEEK FOR 2 WEEKS fluocinolone-skin kvjhy99-yjss 0.01 % kit Apply to affected area [...] arthralgias, back p (more content not included)... [facility] 01-03-2024 History of Present illness Narrative This note was created using [employer]. Subjective Anaya Wilson is a 83 year [...] by the patient and the spouse. No humanities and languages professor was used. PAST MEDICAL HISTORY Diagnosis Date [...] ONCE A WEEK FOR 2 WEEKS fluocinolone-skin erkfr16-lady 0.01 % kit Apply to affected area [...] made for patient 01/06/24 with Cory Pearson APRN.BACKWINDER documented in this encounter [facility] 12-27-2023 Telephone encounter Note Pt has refills at pharmacy through next Oct. Pt notified of such. Refill will be declined. [facility] 12-27-2023 Miscellaneous Notes Pt has refills [...] you. Chapis Womack. documented in this encounter [facility] 12-27-2023 Telephone encounter Note Patient has [...] 01/22/2024 Please advise. Thank you. Chapis Womack. [facility] 12-24-2023 Instructions Abigail Balderas APRN.CNP - [...] Abigail Balderas APRN.KEVIN documented in this encounter [facility] 12-24-2023 Note HNO ID: [id number] Author: ABIGAIL BALDERAS APRN.CNP Service: ? Author [...] [Hydrocodone-Acetaminophen], and Zoloft [Sertraline Hcl] MEDICATIONS fluocinolone-skin -pzhc 0.01 % kit Apply to affected area [...] status: Never Smok (more content not included)... [facility] 12-24-2023 History of Present illness Narrative [...] ABDOMINAL HYSTERECT W/WO RMVL TUBE OVARY 1988 URBI/BSO for fibroids and bleeding TOTAL KNEE REPLACEMENT Left 03/28/2020 VAGINAL HYSTERECTOMY ALLERGIES Caffeine, Codeine, Darvocet A500 [Propoxyphene N-Acetaminophen], Demerol [Meperidine (Pf)], Entex [Phenylephrine-Guaifenesin], Ephedrine, Griseofulvin, Milk Containing Products (Dairy), Tramadol, Vicodin [Hydrocodone-Acetaminophen], and Zoloft [Sertraline Hcl] MEDICATIONS fluocinolone-skin jifaz74-sglg 0.01 % kit Apply to affected area [...] Discussed expected course of illness Abigail Balderas APRN.BACKWINDER documented in this encounter [facility] 12-24-2023 Telephone encounter Note Patient calling to state she thinks she may have a UTI with urinary frequency for 2 days. History of UTI's. Pt agreeable to being evaluated as advised, at [facility] evening. Cherrie Harkins RN [facility] 12-24-2023 Miscellaneous Notes Patient calling to state she thinks she may have a UTI with urinary frequency for 2 days. History of UTI's. Pt agreeable to being evaluated as advised, at [facility] this evening. Cherrie Harkins RN documented in this encounter [facility] 12-05-2023 Instructions Kinga Goldberg APRN.CNP - 12/05/2023 11:18 AM EDT 1) See Dr. Nicholson in Nov. 2) Fluocinolone tape 2 x day to heel documented in this encounter [facility] 12-05-2023 Note HNO ID: [id number] Author: KINGA GOLDBERG APRN.CNP Service: ? Author [...] Nicholson about meth (more content not included)... [facility] 12-05-2023 History of Present illness Narrative This is a 83 year old female who presents today with: Patient presents with: Psoriatic Arthritis: Follow up HISTORY OF PRESENT ILLNESS: Franklinbk Wilson is a 83 year old female. [...] Kinga Goldberg APRN.CNP documented in this encounter [facility] 12-04-2023 Telephone encounter Note Patient calls [...] same provider as previously. Armida Warren RN [facility] 12-04-2023 Miscellaneous Notes Patient calls to [...] Armida Warren RN documented in this encounter [facility] 11-28-2023 Telephone encounter Note Patient returned call and went over results from Tasneem Goldberg NP with understanding. [facility] 11-28-2023 Miscellaneous Notes Patient returned call and went over results from Tasneem Goldberg NP with understanding. Left message to call and speak with nurse. Please let patient know that her x-ray of her ankle was normal. documented in this encounter [facility] 11-28-2023 Telephone encounter Note Left message to call and speak with nurse. [facility] 11-28-2023 Telephone encounter Note Please let patient know that her x-ray of her ankle was normal. [facility] 11-25-2023 History of Present illness Narrative [...] PATIENT PRESENTS WITH AN IMPLANTABLE OR ATTACHED NUCLEAR DESIGN ENGINEER: No RADIOLOGY DEPARTMENT: General X-ray: Exam(s) Completed: Lower Extremity X-Ray(s): Ankle, Right and Wt. Bearing PERIPHERAL IV DATA: Not applicable SIGNED BY: RT Boy(R) November 25, 2023 1:12 PM documented in this encounter [facility] 11-25-2023 Note HNO ID: [id number] Author: GRACE CR RT(R) Service: Radiology Author [...] PATIENT PRESENTS WITH AN IMPLANTABLE OR ATTACHED NUCLEAR DESIGN ENGINEER: No RADIOLOGY DEPARTMENT: General X-ray: Exam(s) Completed: Lower Extremity X-Ray(s): Ankle, Right and Wt. Bearing PERIPHERAL IV DATA: Not applicable SIGNED BY: RT Boy(R) November 25, 2023 1:12 PM [facility] 11-25-2023 Instructions Kinga Goldberg APRN.CNP - 11/25/2023 1:05 PM EDT 1) Medrol taper as discussed 2) Clobetasol ointment daily to right ankle- back 3) Xray today 4) Follow up Dr. Nciholson in January 5) Call if symptom does not get better or returns documented in this encounter [facility] 11-25-2023 Note HNO ID: [id number] Author: KINGA GOLDBERG APRN.BACKWINDER Service: ? Author Type: Clinical Nurse Specialist Type: Progress Notes Filed: 11/25/2023 13:03 Note Text: This is a 83 year old female who presents today with: Patient presents with: Pain: Right foot, back of heel HISTORY OF PRESENT ILLNESS: Anaya Wilson is a 83 year old female. Patient presents with: Pain: Right foot, back of heel Went to [facility] yesterday. When she got home, she noticed [...] the pain. Was on methotrexate and saw It Risk And Assurance Manager. Quit seeing her and stopped medication about [...] Pulmonary effort is (more content not included)... [facility] 11-25-2023 History of Present illness Narrative This is a 83 year old female who presents today with: Patient presents with: Pain: Right foot, back of heel HISTORY OF PRESENT ILLNESS: Anaya Wilson is a 83 year old female. Patient presents with: Pain: Right foot, back of heel Went to [facility] yesterday. When she got home, she noticed [...] the pain. Was on methotrexate and saw It Risk And Assurance Manager. Quit seeing her and stopped medication about [...] Kinga Goldberg APRN.KEVIN documented in this encounter [facility] 11-18-2023 Telephone encounter Note Prescription Refill [...] Arlen Paul November 18, 2023 2:36 PM [facility] 11-18-2023 Miscellaneous Notes Prescription Refill Information [...] 2023 2:36 PM documented in this encounter [facility] 11-13-2023 History and physical note Images [...] 3 daughters. She retired in 2007 from [employer]. Previous work up includes: 05/10/2022 Colonoscopy by [...] ulcer syndrome, provided with the biopsies are sales donor recruitment representative of the lesion of clinical interest. [...] Abs Lymph 1.00 - 4.00 k/uL 1.21 Tunica% % 8.9 Abs Tunica <0.87 k/uL 0.49 Eosin% % 0.5 Abs [...] FACP CT-Scan 09/23/2023 MRCP 05/24/2023 MRCP 12/27/2022 [facility] 11-13-2023 History and physical note Images [...] 3 daughters. She retired in 2007 from [employer]. Previous work up includes: 05/10/2022 Colonoscopy by [...] ulcer syndrome, provided with the biopsies are sales donor recruitment representative of the lesion of clinical interest. [...] Abs Lymph 1.00 - 4.00 k/uL 1.21 Tunica% % 8.9 Abs Tunica <0.87 k/uL 0.49 Eosin% % 0.5 Abs [...] EUS, OR TUBE INTERVENTIONS [facility]/23/2023 MRCP 05/24/2023 MRCP 12/27/2022 documented in this encounter [facility] 11-08-2023 Telephone encounter Note The patient [...] Escalante LPN November 08, 2023 12:55 PM [facility] 11-08-2023 Miscellaneous Notes The patient has [...] 2023 12:55 PM documented in this encounter [facility] 10-29-2023 Telephone encounter Note Patient given results and verbalized understanding of instructions given. Johanna Kilpatrick MA [facility] 10-29-2023 Miscellaneous Notes Patient given results and verbalized understanding of instructions given. Johanna Kilpatrick MA Please let patient know she is positive for COVID-19. Isolate until 24 hours fever free and symptoms improving. May continue OTC medications as needed. documented in this encounter [facility] 10-29-2023 Telephone encounter Note Please let patient know she is positive for COVID-19. Isolate until 24 hours fever free and symptoms improving. May continue OTC medications as needed. [facility] Work Phone: 10-28-2023 Note HNO ID: [id number] Author: KYM LEWIS PA Service: ? Author Type: Physician Service Cashier Type: Progress Notes Filed: 10/28/2023 11:15 Note Text: This note was created using [employer]. Subjective Anaya Wilson is a 83 year [...] for this. She has not taken anything ehbd-psf-owzutsa for her symptoms. She denies any other [...] reviewed. Constitutional: General (more content not included)... [facility] 10-28-2023 History of Present illness Narrative This note was created using [employer]. Subjective Anaya Wilson is a 83 year [...] for this. She has not taken anything khap-frw-zmvrdkm for her symptoms. She denies any other [...] (primary diagnosis) -Suspect viral. Lungs clear. -Recommend hfam-mdt-ckmtbaz cough/cold medication as needed, honey, fluids, rest, [...] evaluation. SUSAN Hayden documented in this encounter [facility] 10-28-2023 Note HNO ID: [id number] Author: EDENILSON NICHOLSON, DO Service: ? Author [...] 25 mg tablet (more content not included)... [facility] 10-28-2023 History of Present illness Narrative [...] No date: Chronic rhinitis 08/2018: COPD, mild ([facility]) No date: Dementia ([facility]) No date: Diverticulosis of colon [...] agreed with the plan. Edenilson Nicholson DO [address] [place] [address] documented in this encounter [facility] 10-24-2023 Telephone encounter Note Scheduled, per message below. Thank you, [facility] 10-24-2023 Miscellaneous Notes Scheduled, per message below. Thank you, This pt needs to be seen in pancreas clinic. Please schedule on 11/13/2023. Thank you, Mary Miranda RN Spouse calling for who was seen by Dr. Mendez. Stating, Dr. Mendez is referring for elevated levels. Also stating PT has tumor in pancreas? First available appt was scheduled for Nov 19. Pt lives in [place], [place]. Please review and advise if PT needs earlier appt. Thank you, documented in this encounter [facility] 10-24-2023 Telephone encounter Note This pt needs to be seen in pancreas clinic. Please schedule on 11/13/2023. Thank you, Mary Miranda RN [facility] Work Phone: 10-24-2023 Telephone encounter Note Spouse calling for who was seen by Dr. Mendez. Stating, Dr. Mendez is referring for elevated levels. Also stating PT has tumor in pancreas? First available appt was scheduled for Nov 19. Pt lives in [place], [place]. Please review and advise if PT needs earlier appt. Thank you, [facility] 10-22-2023 Instructions Edenilson Nicholson DO - [...] at a time. documented in this encounter [facility] 09-24-2023 Telephone encounter Note Pt's calls to report pt was in [facility] yesterday for vomiting. Pt was advised to follow up with GI. is requesting pcp review ER report and would like to know if pcp has a recommendation for a GI dr. Please review and advise. Taty Aguilar LPN [facility] 09-24-2023 Miscellaneous Notes Pt's calls to report pt was in [facility] yesterday for vomiting. Pt was advised to follow up with GI. is requesting pcp review ER report and would like to know if pcp has a recommendation for a GI dr. Please review and advise. Taty Aguilar LPN documented in this encounter [facility] 09-22-2023 Telephone encounter Note Reason for [...] pain 2. RADIATION: denies 3. ONSET: 09/22/23, 6460-0615 4. SUDDEN: sudden onset, woke from sleep 5. PATTERN: intermittent, patient now resting 6. SEVERITY: resting now 7. RECURRENT SYMPTOM: N/A 8. AGGRAVATING FACTORS: denies 9. CARDIAC SYMPTOMS: nausea, diaphoresis, chills/shaking 10. OTHER SYMPTOMS: denies 11. : N/A -patient had nausea, vomiting, chills/diaphoresis earlier today ([id number]). Three episodes of emesis, and dry heaving. Emesis appeared like what she ate last. Patient has since been resting, able to ambulate to use restroom. has concern that symptoms could be related to patient's medication Donepezil. Has not kept anything down (liquid/food) today, has not taken meds. Protocols used: Abdominal Pain - [id number]-HR [facility] 09-22-2023 Miscellaneous Notes Reason for Call: [...] pain 2. RADIATION: denies 3. ONSET: 09/22/23, [id number] 4. SUDDEN: sudden onset, woke from sleep 5. PATTERN: intermittent, patient now resting 6. SEVERITY: resting now 7. RECURRENT SYMPTOM: N/A 8. AGGRAVATING FACTORS: denies 9. CARDIAC SYMPTOMS: nausea, diaphoresis, chills/shaking 10. OTHER SYMPTOMS: denies 11. : N/A -patient had nausea, vomiting, chills/diaphoresis earlier today ([phone]). Three episodes of emesis, and dry heaving. Emesis appeared like what she ate last. Patient has since been resting, able to ambulate to use restroom. has concern that symptoms could be related to patient's medication Donepezil. Has not kept anything down (liquid/food) today, has not taken meds. Protocols used: Abdominal Pain - Iqylo-WQSKG-XJ documented in this encounter [facility] 09-18-2023 Note HNO ID: [id number] Author: BHARAT EDENILSON, DO Service: ? Author [...] (54.0kg) General Appeara (more content not included)... [facility] 09-18-2023 History of Present illness Narrative [...] See patient instructions. Edenilson Nicholson DO [address] [place] [address] documented in this encounter [facility] 09-18-2023 Instructions Edenilson Nicholson DO - 09/18/2023 6:58 PM EDT STOP the methotrexate and the folic acid Use the Aspercream or the Voltaren cream on your inner right knee area on the bursitis area where there is pain Increase the donezapil to 10 mg a day for memory documented in this encounter [facility] 08-17-2023 Telephone encounter Note Patient returning call, Patient states her told her [facility] just called. Nothing noted in chart. Asked to check if a message was left. Patient states there is a voicemail but she needs to hang up to listen to it. Line disconnected. [facility] 08-17-2023 Miscellaneous Notes Patient returning call, Patient states her told her [facility] just called. Nothing noted in chart. Asked to check if a message was left. Patient states there is a voicemail but she needs to hang up to listen to it. Line disconnected. documented in this encounter [facility] 08-09-2023 Telephone encounter Note Patient has [...] Please advise. Thank you. Armida Warren RN. [facility] 08-09-2023 Miscellaneous Notes Patient has been [...] Armida Warren RN. documented in this encounter [facility] 08-02-2023 Telephone encounter Note Patient normally had this going to [facility] but now would like it sent to [...] Please advise. Thank you. Natali Solano LPN. [facility] 08-02-2023 Miscellaneous Notes Patient normally had this going to [facility] but now would like it sent to [facility]. Patient has been identified by [...] Natali Solano LPN. documented in this encounter [facility] 08-01-2023 Telephone encounter Note Spoke with patient. She states she was looking at an old prescription bottle. She was also not aware that she has refills available with new script sent on 07/16/23. She will contact the pharmacy for refill. Elizabeth Perez RN [facility] 08-01-2023 Miscellaneous Notes Spoke with patient. She states she was looking at an old prescription bottle. She was also not aware that she has refills available with new script sent on 07/16/23. She will contact the pharmacy for refill. Elizabeth Perez RN Famotidine 10 mg on active med list with several refills at [facility] in [place]. TC to patient to clarify if wanting to increase to the 40 mg. No answer, left VM to return call. JEFF Morrison Patient requesting medication famotidine (PEPCID) 40 mg tablet . PHARMACY: [facility] documented in this encounter [facility] 08-01-2023 Telephone encounter Note Famotidine 10 mg on active med list with several refills at [facility] in [place]. TC to patient to clarify if wanting to increase to the 40 mg. No answer, left VM to return call. JEFF Morrison [facility] 08-01-2023 Telephone encounter Note Patient requesting medication famotidine (PEPCID) 40 mg tablet . PHARMACY: [facility] 07-16-2023 History of Present illness Narrative [...] daily. (Patient not taking: Reported on 06/12/2023) joafg-6f-ukr-epa-fish oil-D3 350 mg-400 mg- 1,000 unit cap [...] Follow up in 1 month. Angeline Monterroso APRN.KEVIN documented in this encounter [facility] 07-08-2023 Telephone encounter Note Pt notified. Ramona Cantrell MA [facility] 07-08-2023 Miscellaneous Notes Pt notified. Ramona [...] Chapis Valle APRN.CNP documented in this encounter [facility] 07-08-2023 Telephone encounter Note I sent over three days more. If not improving follow-up with PCP team Chapis Valle APRN.CNP [facility] 07-08-2023 Telephone encounter Note Pt called [...] call and advise. Nell Barnett RN T [facility] 07-08-2023 Telephone encounter Note She should have had enough for 5 days- meaning she still has a day left? Chapis Valle APRN.CNP [facility] 07-08-2023 Telephone encounter Note Pt notified. She finished antibiotic she says and still having urinary frequency. No pain with urination, no visible blood in urine. No back pain, abdominal, nausea or vomiting. No fevers. Anything further recommendations. Ramona Cantrell MA T [facility] 07-08-2023 Telephone encounter Note ----- Message from Chapis Valle APRN.CNP sent at 07/08/2023 6:50 AM EDT ----- Urine culture shows infection with E. Coli. The antibiotic she is on will work for this bacteria. Complete entire course. Chapis Valle APRN.CNP [facility] 07-04-2023 History of Present illness Narrative 07/04/2023 [...] daily. (Patient not taking: Reported on 06/12/2023) gdasu-0u-kxt-epa-fish oil-D3 350 mg-400 mg- 1,000 unit cap [...] ER with red leg symptoms Chapis Valle APRN.BACKWINDER Prescription instructions reviewed with patient as applicable. [...] 3 - Low documented in this encounter [facility] 07-04-2023 Telephone encounter Note Patient calls [...] vaginal discharge. Protocols used: Urination Pain - Cmvgjx-HOUNR-BO [facility] 07-04-2023 Miscellaneous Notes Patient calls for [...] vaginal discharge. Protocols used: Urination Pain - Rxsdvo-SJLIM-QA documented in this encounter [facility] 07-01-2023 Telephone encounter Note Patient calls and notified of results and providers instructions. Patient verbalizes understanding and reports she is feeling much better. Cough is almost gone. Armida Warren RN [facility] 07-01-2023 Miscellaneous Notes Patient calls and notified of results and providers instructions. Patient verbalizes understanding and reports she is feeling much better. Cough is almost gone. Armida Warren, RN Message let to return call. Please let Anaya know that her chest xray looks normal. Angeline Monterroso APRN.KEVIN documented in this encounter [facility] 07-01-2023 Telephone encounter Note Message let to return call. [facility] Work Phone: 06-28-2023 Telephone encounter Note Please let Anaya know that her chest xray looks normal. Angeline Monterroso APRN.KEVIN [facility] 06-28-2023 Telephone encounter Note Pt informed, verbalized understanding. Ivette Valenzuela MA [facility] 06-28-2023 Miscellaneous Notes Pt informed, verbalized understanding. Ivette Valenzuela MA Please let her know that her swab test is negative for COVID/influenza/RSV. Angeline Monterroso APRN.CNP documented in this encounter [facility] 06-28-2023 Telephone encounter Note Please let her know that her swab test is negative for COVID/influenza/RSV. Angeline Monterroso APRN.CNP [facility] 06-27-2023 History of Present illness Narrative [...] PATIENT PRESENTS WITH AN IMPLANTABLE OR ATTACHED NUCLEAR DESIGN ENGINEER: No RADIOLOGY DEPARTMENT: General X-ray: Exam(s) Completed: Chest X-Ray PERIPHERAL IV DATA: Not applicable SIGNED BY: RT Boy(R) June 27, 2023 3:12 PM documented in this encounter [facility] 06-27-2023 History of Present illness Narrative [...] daily. (Patient not taking: Reported on 06/12/2023) ntadk-4u-hra-epa-fish oil-D3 350 mg-400 mg- 1,000 unit cap [...] A/B & RSV NAAT, ROUTINE Angeline Monterroso APRN.BACKWINDER documented in this encounter [facility] 06-27-2023 Telephone encounter Note Opened in Error. [facility] 06-27-2023 Miscellaneous Notes Opened in Error. documented in this encounter [facility] 06-27-2023 Telephone encounter Note Patient calls [...] TRAVEL: No Protocols used: Cough - Acute Hndsqypkuf-KKJWS-YF [facility] 06-27-2023 Miscellaneous Notes Patient calls for cough [...] TRAVEL: No Protocols used: Cough - Acute Sjjqxzdbwh-VKZKF-MG Pt calls states was on lisinopril had a little cough and was switched to losartan. She states the cough is much worse on the losartan. This nurse explains not usually a side effect from losartan is a known one from lisinopril. Explained would send a note to doctor. documented in this encounter [facility] 06-26-2023 Telephone encounter Note Pt calls states was on lisinopril had a little cough and was switched to losartan. She states the cough is much worse on the losartan. This nurse explains not usually a side effect from losartan is a known one from lisinopril. Explained would send a note to doctor. [facility] 06-12-2023 History of Present illness Narrative [...] a little bloated. Was in ER at [facility] this morning and told she had pancreatitis. [...] 60 MG/2 ML INTRAMUSCULAR SOLUTION Angeline Monterroso APRN.BACKWINDER Currently: Abdominal pain-if pigs out with eating [...] daily. (Patient not taking: Reported on 06/12/2023) uisnk-0p-wfm-epa-fish oil-D3 350 mg-400 mg- 1,000 unit cap [...] Angeline Monterroso APRN.CNP documented in this encounter [facility] 06-08-2023 Miscellaneous Notes Patient calling requesting [...] have any questions, you can call Nurse instrumentation and controls designer back. documented in this encounter [facility] 06-04-2023 Miscellaneous Notes Noted, thank you. [...] Elizabeth Perez, RN documented in this encounter [facility] 05-24-2023 Miscellaneous Notes Spoke with pt gave information provided. Pt voices understanding. Please inform patient that her Abdominal/pelvis MRI shows no changes as below IMPRESSION: Unchanged lobulated cystic lesion in the pancreatic body, without definite communication to the nondilated duct. No suspicious enhancing nodules. Differential includes a sidebranch IPMN or an oligocystic serous adenoma. Edenilson Nicholson DO documented in this encounter [facility] 05-22-2023 Note HNO ID: [id number] Author: SARA ESTEVES RT(R) Service: ? Author [...] PATIENT PRESENTS WITH AN IMPLANTABLE OR ATTACHED NUCLEAR DESIGN ENGINEER: No ALLERGIES: Reviewed and unchanged CONTRAST ALLERGY: NO. EXAM: MRI - CONTRAST TYPE: GROUP II PERIPHERAL IV DATA: Ambulatory: A peripheral IV was started in the Left antecubital site with a Angio cath: 20 gauge. RADIOLOGY DEPARTMENT: MR; Exam(s) Completed: Body: Pancreas/Biliary SIGNATURE: Sara Esteves, RT(R) PATIENT NAME: Anaya Wilson DATE: May 22, 2023 TIME: 5:55 PM [facility] 05-22-2023 History of Present illness Narrative Summary: [...] PATIENT PRESENTS WITH AN IMPLANTABLE OR ATTACHED NUCLEAR DESIGN ENGINEER: No ALLERGIES: Reviewed and unchanged CONTRAST ALLERGY: NO. EXAM: MRI - CONTRAST TYPE: GROUP II PERIPHERAL IV DATA: Ambulatory: A peripheral IV was started in the Left antecubital site with a Angio cath: 20 gauge. RADIOLOGY DEPARTMENT: MR; Exam(s) Completed: Body: Pancreas/Biliary SIGNATURE: RT Yancy(R) PATIENT NAME: Anaya Wilson DATE: May 22, 2023 TIME: 5:55 PM documented in this encounter [facility] 05-15-2023 Miscellaneous Notes Pts line remains busy . Will need to try again. She does not have an appt with Kandi today. Angeline Monterroso APRN.BACKWINDER Line remains busy. Does have appointment today [...] on 01-04-23). Please advise pt. Transferred to [facility] to schedule MRI. Attempted to contact patient [...] Angeline Monterroso APRN.KEVIN documented in this encounter [facility] 05-08-2023 Note HNO ID: [id number] Author: GETACHEW PULIDO TECHNCJ Service: ? Author [...] PATIENT PRESENTS WITH AN IMPLANTABLE OR ATTACHED NUCLEAR DESIGN ENGINEER: No RADIOLOGY DEPARTMENT: Ultrasound PERIPHERAL IV DATA: Not applicable SIGNED BY: TECHNOLOGIST Precious May 08, 2023 2:24 PM [facility] 05-08-2023 History of Present illness Narrative [...] PATIENT PRESENTS WITH AN IMPLANTABLE OR ATTACHED NUCLEAR DESIGN ENGINEER: No RADIOLOGY DEPARTMENT: Ultrasound PERIPHERAL IV DATA: Not applicable SIGNED BY: TECHNOLOGIST Precious May 08, 2023 2:24 PM documented in this encounter [facility] 05-08-2023 Instructions Angeline Monterroso APRN.CNP - 05/08/2023 9:22 AM EST Have your ultrasound, I should have this result later today. Diet: Liquid diet for 1-2 days. As long as you're tolerating it... Soft diet for 2-3 days. As long as you're tolerating it... Introduce your regular foods, but try to stay away from acidic and spicy foods. documented in this encounter [facility] 05-08-2023 History of Present illness Narrative Chief Complaint Patient presents with: ER follow up abdominal pain HPI Anaya Wilson is a 83 year old female who presents here today for Above Complaints. Currently: Pain in mid upper abdomen, moves to each side. Is achy, feels a little bloated. Was in ER at [facility] this morning and told she had pancreatitis. [...] Take 5,000 Units by mouth once daily. onhnc-6b-kmz-epa-fish oil-D3 350 mg-400 mg- 1,000 unit cap [...] Angeline Monterroso APRN.KEVIN documented in this encounter [facility] 05-06-2023 Miscellaneous Notes SPECIALTY CARE COORDINATION [...] May 06, 2023 documented in this encounter [facility] 04-17-2023 History of Present illness Narrative [...] Take 5,000 Units by mouth once daily. ojzpp-7g-xqa-epa-fish oil-D3 350 mg-400 mg- 1,000 unit cap [...] aren't interested in full memory testing at [facility] which is what has been [...] aren't interested in full memory testing at [facility] which is what has been [...] See patient instructions. Edenilson Nicholson DO [address] [place] [address] documented in this encounter [facility] 02-14-2023 Miscellaneous Notes Called patient about rescheduled appts lvm documented in this encounter [facility] 02-13-2023 Miscellaneous Notes SPECIALTY CARE COORDINATION FOLLOW-UP NOTE Spoke to Anaya and Jose Guadalupe, . She accepted a new surgery date of 05/27 and pre op 05/26 pre op appointment date since Dr. Villalobos will be out of town on 3/12. Explained that if they have any questions to please call the office at [phone]. They stated they understood and thanked me for the phone call. Jenny Yun RN February 13, 2023 documented in this encounter [facility] 02-06-2023 Miscellaneous Notes Date of last office: 01/28/2023 Date of next office visit: 03/11/2023 Requested Prescriptions Pending Prescriptions Disp Refills Azelaic Acid (FINACEA) 15 % gel 15 g 1 Sig: Apply to affected area once daily. Please advise. Thank you. Yi Jones RN. documented in this encounter [facility] 02-05-2023 Miscellaneous Notes Pt calling requesting refill. Advises she used this rx today and would like to keep this on hand for her appointments. Call pt only if problem. Tobi Burnett LPN documented in this encounter [facility] 01-28-2023 History of Present illness Narrative Above L eyebrow (site) was assessed and 1 sutures was removed as ordered. No dressing required. Patient instructed on wound care and verbalized understanding. Kandi Park APRN.BACKWINDER documented in this encounter [facility] 01-23-2023 Miscellaneous Notes Glad to hear. Thank you, Kandi Park APRN.BACKWINDER Patient notified of results, verbalizes understanding of instructions. Pt stated she is no longer having urinary sx. Mckenna Dc LPN Please call patient and let her know that urine culture was negative. No signs of bacteria or UTI. Please see if she is still having urinary symptoms. Thank you, Kandi Park APRN.BACKWINDER documented in this encounter [facility] 01-21-2023 History of Present illness Narrative [...] me today. Concerns today... ER follow-up --- [facility] ER visit on 01/19/23 d/t fall and [...] daily. (Patient not taking: Reported on 11/26/2022) qssrb-1y-rrq-epa-fish oil-D3 350 mg-400 mg- 1,000 unit cap [...] agreeable to treatment plan. Kandi Contreras APRN.KEVIN [address] [place] [address] documented in this encounter [facility] 01-20-2023 Miscellaneous Notes Patient calling with question about prophylactic antibiotics. Patient denies any new or worsening symptoms of which a provider is not aware: Yes. Patient states she had a fall 01/19/23 and has a small laceration above her eye. Was seen at [facility] ED and wound was cleaned and a [...] is quite bruised. documented in this encounter [facility] 01-19-2023 Hospital Discharge instructions Patient Education [...] the ears or bruising around the eyes [phone] [employer]. [address] [place] [address]. All rights reserved. This information is not intended as a substitute for professional medical care. Always follow your healthcare professional's instructions. Follow Up Care 01/19/2023 11:57:28 With:EDENILSON NICHOLSON DO Address: [address] [facility] [place] [id number]- When:2-4 days [facility] 01-19-2023 Note Discharge Instructions Thank you for allowing [facility] to assist you with your healthcare needs. The following is important discharge information regarding your hospital visit. Diagnosis from Today's Visit Fall Head Laceration What to Do Next Instructions from Your Care Team No qualifying data available. Post Acute Orders No qualifying data available. You Need to Schedule the Following Appointments Follow Up with EDENILSON NICHOLSON DO When Within 2-4 days Where: [address] [facility] [place] [address]- Allergies No active allergies Medications Please ask [...] the ears or bruising around the eyes [phone] [employer]. [address] [place] [address], [place] [address]. All rights reserved. This information is not intended as a substitute for professional medical care. Always follow your healthcare professional's instructions. Additional Information VACCINATE! IT SAVES LIVES! Members of the community who have not yet received the COVID-19 vaccine and would like to receive it can visit one of [facility] vaccine clinics. There are many vaccine clinic locations within the [facility]. For locations and available times, please visit [email or web address] [email or web address] It is important to note that some COVID mobile vaccine clinics are held outdoors and may be canceled in rainy or stormy conditions. To learn more about pediatric vaccinations (ages 5-11), we invite you to visit the [employer] webpage. https://www.[employer].org/pa [email or web address]-Zbehd-Jxlerenvteu-Freque hsby-Kteum-Qzxeusqru.html To learn more about the COVID-19 vaccine, we invite you to visit the CDC website for a list of frequently asked questions. https://www.cdc.gov/coronavirus/2 019-ncov/vaccines/faq.html [facility] Patient Portal Access Instructions: Stay connected with your healthcare team and access your personal medical information anytime with the [facility] Patient Portal. If you would like a full copy of your medical records please contact the [facility] Medical Records Department Saturday through Saturday between 8a.m. and 4:30p.m. Please follow the directions below to access the portal: 1.Access the email account you provided upon registration to the hospital.2.Look for an invitation email from [facility].3.Open the email and access the invitation link: Accept Invitation to [facility].Fill in the required julio to create your account. Sign into [email or web address] with your username and password that you [...] will allow to register on the [facility] Patient Portal for access to your information. You can also access the [facility] Patient Portal on the Team Apart. Simply click on Health Records under Health Data and then click on the [employer] logo. HOW TO SAFELY DISPOSE OF PRESCRIPTION [...] Call your local pharmacy or go to [email or web address] to find one close to you.3.Make use of household items: Use cat litter or old coffee grounds to dispose medications if other options are not available. Mix your drugs with these household products, seal them in an airtight container and throw it into the garbage. Call [facility]: [phone] to be sure your drugs can be [...] aware that I should contact my doctor. Patient/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 Clerk Signature: Date/Time: Relationship to Patient: ____ Witness Name/Signature: Date/Time: [facility] 01-19-2023 Note ORIGINAL EXAMINATION: CT OF THE [...] Sign Date: 01/19/2023 1:32:00 PM Ordering Provider: [facility] 01-19-2023 Note ORIGINAL EXAMINATION: CT [...] Sign Date: 01/19/2023 1:25:21 PM Ordering Provider: [facility] 01-17-2023 Miscellaneous Notes Patient and spouse notified [...] Edenilson Nicholson DO documented in this encounter [facility] 01-14-2023 History of Present illness Narrative [...] knee joint Informed Consent Consent Obtained: Verbal [place] Protocol A moment to CARE was completed. [...] Del Castillo PA-C documented in this encounter [facility] 01-14-2023 Miscellaneous Notes Called patient to let her know appts are schedule and to confirm with me-phone kept ringing and ringing documented in this encounter [facility] 01-11-2023 History of Present illness Narrative [...] results and radiologist's interpretation, available in the [facility] health record. Images were reviewed with [...] due to knee joint prosthesis, initial encounter ([facility]) (primary encounter diagnosis) (Z96.652) Status [...] Del Castillo PA-C documented in this encounter [facility] 01-11-2023 History of Present illness Narrative [...] 2023 8:22 AM documented in this encounter [facility] 01-09-2023 Miscellaneous Notes Called patient on [...] consent as well. documented in this encounter [facility] 12-27-2022 History of Present illness Narrative [...] TIME: 8:51 AM documented in this encounter [facility] 12-11-2022 Miscellaneous Notes Patient calls and notified of results. Patient verbalizes understanding. Armida Warren RN Left message for patient to return call to office Madeline Horn Cma Please let her know that her urine culture did not show a UTI. Angeline Monterroso APRN.CNP documented in this encounter [facility] 11-26-2022 History of Present illness Narrative [...] 2022 2:06 PM documented in this encounter [facility] 11-26-2022 History of Present illness Narrative Surgica request placed for RA rectopexy and sacrocolpopexy on SaturdayMay 13 documented in this encounter [facility] 11-22-2022 Miscellaneous Notes SPECIALTY CARE COORDINATION FOLLOW-UP NOTE Spoke to Anaya. She says that she wants to have the surgery with Drs. Villalobos and Marquez. Explained that I would let them know and I will get back with her with a surgery date. She thanked me for the phone call. Signature Jenny Yun RN November 22, 2022 documented in this encounter [facility] 11-22-2022 Miscellaneous Notes SPECIALTY CARE COORDINATION FOLLOW-UP NOTE Unable to reach Anaya. Left a voice message to follow up from this week's office visit with Dr. Villalobos if Anaya is interested to schedule surgery with Drs. Villalobos and Marquez. Asked to call the office at [phone] to let us know. Signature Jenny Yun RN November 22, 2022 documented in this encounter [facility] 11-20-2022 History of Present illness Narrative [...] 2022 3:47 PM documented in this encounter [facility] 11-19-2022 History of Present illness Narrative [...] patulous Resting tone: WEAK Squeeze tone: WEAK Cloth Stretcher present: Yes Large rectocele, small full thickness [...] and coordinating care. documented in this encounter [facility] 11-15-2022 Miscellaneous Notes Pt called and is notified of providers results and instructions. Pt voices understanding. Pt scheduled with Dr Nicholson on 12/05/22 for f/u. Nell Barnett, ROBERT Left message for patient to return call. Alyssa Bryson LPN ----- Message from Abigail Balderas APRN.BACKWINDER sent at 11/15/2022 7:39 AM EDT ----- Urine culture did not show any evidence of infection. She may continue to take antibiotic if it has been helpful. Recommend follow up with PCP to ensure hematuria has resolved-Dr. Nicholson has placed an order for a repeat UA to be done in 2-3 weeks. Abigail Balderas CNP documented in this encounter [facility] 11-14-2022 Instructions Edenilson Nicholson DO - 11/14/2022 10:51 AM EDT Recheck urine at lab in early December, this order is in your chart. documented in this encounter [facility] 11-14-2022 History of Present illness Narrative [...] Take 5,000 Units by mouth once daily. wmhkv-8e-wwy-epa-fish oil-D3 350 mg-400 mg- 1,000 unit cap [...] consideration of PFTs as well. F/u with It Risk And Assurance Manager for care/treatment 6. Chronic obstructive pulmonary disease, [...] plan. See patient instructions. Edenilson Nicholson DO [address] [place] [address] documented in this encounter [facility] 11-13-2022 History of Present illness Narrative Subjective HPI A nontoxic appearing female presents to urgent care with chief complaint of possible UTI. Duration of symptoms 1 day. Associated symptoms dysuria, frequency, and urgency. Patient has history of UTIs in past with similar signs and symptoms. Patient denies the use of any mjyz-pan-vcjnbmq medications or home remedies for symptom management. [...] daily. (Patient not taking: Reported on 06/27/2022) vnffr-9f-pqz-epa-fish oil-D3 350 mg-400 mg- 1,000 unit cap [...] of care. This note was generated using [employer] software. It may contain errors in wording, punctuation, or spelling Johnie Aguirre APRN.BACKWINDER documented in this encounter [facility] 11-07-2022 Miscellaneous Notes Patient has been [...] Armida Warren RN documented in this encounter [facility] 10-12-2022 Instructions Cristhian Rodney PA-C - 10/12/2022 10:40 AM EDT Prednisone as directed if symptoms continue to worsen. documented in this encounter [facility] 10-12-2022 History of Present illness Narrative [...] daily. (Patient not taking: Reported on 06/27/2022) bwdal-0k-jde-epa-fish oil-D3 350 mg-400 mg- 1,000 unit cap [...] Cristhian Rodney PA-C documented in this encounter [facility] 10-12-2022 Miscellaneous Notes Patient call in [...] Cough; Tender to touch Protocols used: Chest Imxc-FGUBJ-ZZ documented in this encounter [facility] 10-06-2022 Miscellaneous Notes Reason for Call: [...] 05 3. PRESCRIBING HCP: [facility] [place] 4. SYMPTOMS: denies 5. SEVERITY: n/a 6. : n/a Protocols used: Medication Question Joyh-ZEMWU-RG documented in this encounter [facility] 09-28-2022 Miscellaneous Notes Pt called and is notified of providers results. Pt voices understanding. Nell Barnett RN Please let patient know her xray is normal. documented in this encounter [facility] 09-20-2022 Instructions Cristhian Rodney PA-C - [...] shortness of breath, please contact the office. [facility] Bee poison Definition Bee poisoning is [...] of the bee sting Poison Control The [place] [facility] ( ) can be called from anywhere in the [place]. This national hotline number will let you talk to experts in poisoning. They will give you further instructions. This is a free and confidential service. All local poison control centers in the [place] [facility] use this national number. You should call [...] if needed Fluids through a vein (IV) [place] (Prognosis) How well you do depends on [...] Medicine: A Comprehensive Study Guide. 6th ed. [place], [place]: [employer]; 2004:chap 194. Review Date: 12/05/2008 Reviewed By: Alex Urrutia MD, A, Emergency Medicine, [facility], [place], [place]. Also reviewed by Aris Gaspar MD, A, Wildfire Prevention Specialist, [employer] is accredited by UR, also known as the [place] Accreditation HealthCare Commission (www.urac.org). [facility]'s accreditation program is an independent audit to verify that [employer]. follows rigorous standards of quality and accountability. [employer] is among the first to achieve this important distinction for online health information and services. Learn more about [employer]'s editorial policy, editorial process and privacy policy. [employer] is also a founding member of [employer] and subscribes to the principles of the Health on the Net Foundation (www.[facility] The information provided herein should not be [...] OTC as needed ( contains pramoxine) Copyright [employer] 2009 [employer] Copyright 2009 [employer]. All rights reserved. - www.[employer]. documented in this encounter [facility] 09-20-2022 History of Present illness Narrative [...] daily. (Patient not taking: Reported on 06/27/2022) ttsqc-8y-irk-epa-fish oil-D3 350 mg-400 mg- 1,000 unit cap [...] Cristhian Rodney PA-C documented in this encounter [facility] 09-20-2022 Miscellaneous Notes Reason for call: [...] TRAVEL: denies Protocols used: Cough - Acute Cwvdyfckws-VKPBW-PY documented in this encounter [facility] 09-05-2022 Miscellaneous Notes Patient calls and notified of results and providers instructions. Patient verbalizes understanding. Armida Warren RN Called and left a voicemail for the Patient to call back and ask for a nurse to receive the providers message. Mckenna Michelle RN Please let Anaya know that her labs look great, no concerns. Angeline Monterroso APRN.BACKWINDER documented in this encounter [facility] 08-30-2022 Miscellaneous Notes Hira--08/01/22 Nov--11/14/22 Last [...] Sharon Pack Pss documented in this encounter [facility] 08-16-2022 Miscellaneous Notes Spoke with pt gave information provided. Pt voices understanding. [Please inform patient that her CT brain shows IMPRESSION: No acute intracranial findings. Age-appropriate unremarkable brain. No concerns Edenilson Nicholson DO documented in this encounter [facility] 08-15-2022 History of Present illness Narrative [...] 2022 4:03 PM documented in this encounter [facility] 08-01-2022 History of Present illness Narrative [...] daily. (Patient not taking: Reported on 06/27/2022) evreb-1e-ghw-epa-fish oil-D3 350 mg-400 mg- 1,000 unit cap [...] See patient instructions. Edenilson Nicholson DO [address] [place] [address] documented in this encounter [facility] 07-14-2022 History of Present illness Narrative Patient presents with: Rash: All over x 1.5 weeks HPI: Rash: Location: back, legs, arm Duration: 1 1/2 weeks Pruritis: Yes Pain: No Change: last a couple days then resolve Bleeding/ulceration/blister/pustu le: flat red spots Contacts with rash: No Exposure: No new soaps, detergents, fabric softeners, lotions. Outdoor exposure: worked in [employer], cannot remember if she wore shorts. Change in medications: started prozac a couple weeks ago. Recent illness: No. Treatment: tea tree oil. Saw floor coverer 2 days ago - given sample for [...] daily. (Patient not taking: Reported on 06/27/2022) xqnml-1m-gof-epa-fish oil-D3 350 mg-400 mg- 1,000 unit cap [...] should have assistance from family or an passenger rate clerk if she continues to get new lesions. Efra Stinson MD documented in this encounter [facility] 07-11-2022 Miscellaneous Notes Patient has been [...] Shabana Hyman Pss documented in this encounter [facility] 06-28-2022 Miscellaneous Notes Pt informed, verbalized understanding Ivette Valenzuela Yes, she may still take her Elavil at bedtime Lani Barraza MD Pt was seen today and was put on Fluoxetine. Pt wants to make sure she can still take her Elavil at bedtime. Please advise pt. Okay to leave a detailed message. Hilaria Cifuentes LPN documented in this encounter [facility] 06-27-2022 Instructions Maria Elena Amaya - [...] plenty of fluids/water. documented in this encounter [facility] 06-27-2022 History of Present illness Narrative [...] than an hour at a time.-comes from [facility]. Leg pain-left romero area-Dr. Nicholson is having [...] daily. FOLIC ACID ORAL Take by mouth. ityit-2v-ckx-epa-fish oil-D3 350 mg-400 mg- 1,000 unit cap [...] patient in counseling and education. TEACHING PROVIDER (Physician/PA/SITE IDENTIFICATION SPECIALIST) NOTE OF PERSONAL INVOLVEMENT IN CARE: I have personally seen and examined the patient and performed the medical decision-making components. I have reviewed the Advanced Practice Registered Nurse (SITE IDENTIFICATION SPECIALIST) Student's documentation and verified the findings in the note as written. Any additions or changes are noted in bold/italics. Signature: Angeline Monterroso Date: 07/02/2022 Time: 6:11 PM documented in this encounter [facility] 06-22-2022 Miscellaneous Notes Noted, thank you. Angeline Monterroso APRN.BACKWINDER Patient calls to report increased anxiety. Nurse [...] SYMPTOMS: Depression. Protocols used: Anxiety and Panic Fvnotu-SGDFP-EG documented in this encounter [facility] 06-16-2022 Miscellaneous Notes I have communicated my name and active licensure. The patient's identity and physical location were verified at the time of this visit. Either the patient or their legal sales donor recruitment representative has been informed of the risks [...] of Colorectal Surgery documented in this encounter [facility] 06-09-2022 Miscellaneous Notes Patient has been [...] Sarah Delgadillo Pss documented in this encounter [facility] 05-22-2022 Miscellaneous Notes Pt calls to [...] Taty Aguilar LPN documented in this encounter [facility] 05-22-2022 Miscellaneous Notes SPECIALTY CARE COORDINATION FOLLOW-UP NOTE Spoke to Jose Guadalupe, . He stated that she was not available. Explained the reason for the call was to understand her concerns and discuss surgery if still interested. He stated that they had seen her accounting systems analyst (Dr. Rivas) and she had a colonoscopy. [...] May 22, 2022 documented in this encounter [facility] 05-22-2022 History of Present illness Narrative [facility] Enrollment Provider Action/FYI: H@H Patient referred by: [facility], [place] Contact made with patient: No - 2nd attempt to reach patient, left another message: Hi my name is Dimple Veras RN and I am calling from the [facility] on behalf of your PCP, Edenilson [...] reach the patient after two attempted outreaches. Flume Worker to retry patient in one week. END OUTREACH [facility] Enrollment Provider Action/FYI: H@H Patient referred by: [facility], [place] Contact made with patient: No - Left Message: Hi my name is Dimple Veras RN and I am calling from the [facility] on behalf of your PCP, Edenilson [...] today) END OUTREACH documented in this encounter [facility] 05-10-2022 Nurse Note Patient arrived laying on left side. Patient states she is having 5/10 abdominal pain. Patient encouraged to belch and pass gas. Abdomen appears to be nondistended and soft to palpation. documented in this encounter [facility] 05-10-2022 History and physical note Images [...] patulous Resting tone: WEAK Squeeze tone: WEAK Cloth Stretcher present: Yes Large rectocele and enterocele Descended [...] Owen Rivas III, MD PATIENT NAME: Anaya Wilson DATE: May 10, 2022 TIME: 9:48 AM documented in this encounter [facility] 05-08-2022 Instructions Mellisa Villalobos DO - [...] additional mesh placement to support these organs. Vidhi.[employer] J of Surg 2004;91:1500-5. What is the [...] narcotic pain medication. documented in this encounter [facility] 05-08-2022 History of Present illness Narrative [...] patulous Resting tone: WEAK Squeeze tone: WEAK Cloth Stretcher present: Yes Large rectocele and enterocele Descended [...] Take 5,000 Units by mouth once daily. lkcts-5f-kau-epa-fish oil-D3 350 mg-400 mg- 1,000 unit cap [...] non-surgical treatment options. documented in this encounter [facility] 05-08-2022 History of Present illness Narrative Female Pelvic Medicine & Reconstructive Surgery Consult ([facility]) CHIEF COMPLAINT: Anaya Wilson is a 82 year old female who presents for consultation requested by Dr. Villalobos for an opinion regarding rectal prolapse, pelvic organ prolapse, urinary frequency and recurrent UTIs. This visit was performed in conjunction with Dr. Villalobos. Last visit: 02/16/22 Visit with Lynne Silverman APRN. BACKWINDER, Urology on 12.16.22. ASSESSMENT/PLAN: ASSESSMENT/PLAN: 1. 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 bfqml-7a-kqv-epa-fish oil-D3 350 mg-400 mg- 1,000 unit cap [...] ROS obtained by others. Nel Zayas MD Cloth Stretcher offered: Patient declines. OBJECTIVE: BP 148/55 (BP [...] and POP recurrence. Discussed sacrocolpopexy, absorbable grafts, d/qawalangin tissue repairs and obliterative procedures. We spoke [...] symptoms (15% if incontinence procedure, 20% for qawalangin tissue repair, 5-15% if sacrocolpopexy), urinary retention [...] Past Histories independently gathered by the clinical passport support manager and the remaining scribed note accurately describes [...] accurate and complete. documented in this encounter [facility] 05-07-2022 Miscellaneous Notes Agree with recommendations [...] of her appts. 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 Kandi Park APRN.CNP Patient reports she has missed 2-3 weeks of taking her methotrexate because she was taking PCN and amoxicillin. Reports she is done with the PCN and amoxicillin now and would like to know if she can start taking her methotrexate again? Please advise patient. documented in this encounter [facility] 04-27-2022 Miscellaneous Notes Spoke to the [...] of Colorectal Surgery documented in this encounter [facility] 04-24-2022 History of Present illness Narrative [...] Take 5,000 Units by mouth once daily. sppbk-4m-dfo-epa-fish oil-D3 350 mg-400 mg- 1,000 unit cap [...] 569.89, ICD10: K63.4 - f/u with [facility] FINAL FINISHER FORGING DIES and colorectal surgeon for potential repair of her vaginal prolapse and rectal prolapse. 3. Pelvic floor dysfunction in female - ICD9: 618.83, ICD10: M62.89 - f/u with [facility]RO FINAL FINISHER FORGING DIES and colorectal surgeon for potential repair of [...] plan. See patient instructions. Edenilson Nicholson DO [address] [place] [address] documented in this encounter [facility] 04-20-2022 Miscellaneous Notes SPECIALTY CARE COORDINATION FOLLOW-UP NOTE Spoke to Pillo, ; returning my call. Requesting to discuss the defecography results. Requesting a telephone call instead of a virtual with Dr. Villalobos. Agreed to telephone visit on 04/27 at 11am. All questions answered and he thanked me for the phone call. Signature Jenny Yun RN April 20, 2022 documented in this encounter [facility] 04-20-2022 Miscellaneous Notes SPECIALTY CARE COORDINATION FOLLOW-UP NOTE Unable to reach Anaya. Left a voice message that I was calling in reference to a question she had when speaking to Women's Health about the 03/08/2022 defecography test. Asked if she wanted to further question to call the office at [phone]. Signature Jenny Yun RN April 20, 2022 documented in this encounter [facility] 04-20-2022 History of Present illness Narrative [...] her legs have started hurting yesterday morning. [place] a little better this morning but is [...] Take 5,000 Units by mouth once daily. rkjjy-5z-kqo-epa-fish oil-D3 350 mg-400 mg- 1,000 unit cap [...] counseling and education. documented in this encounter [facility] 04-19-2022 Miscellaneous Notes Patient requests appointment. [...] last menstrual period? No Protocols used: Leg Vmcr-ZTAHS-TN documented in this encounter [facility] 04-17-2022 History of Present illness Narrative Order placed for UDS documented in this encounter [facility] 04-16-2022 Instructions Mellisa Villalobos DO - [...] If you do not have a responsible local bulk driver (family member or friend) with you [...] preparation [facility] 02/2019 Bowel Preparation Instructions for: Golytely, [...] exam. 2 02/2019 documented in this encounter [facility] 04-16-2022 History of Present illness Narrative [...] patulous Resting tone: WEAK Squeeze tone: WEAK Cloth Stretcher present: Yes Large rectocele and enterocele Descended [...] treatment plan: moderate documented in this encounter [facility] 04-12-2022 Miscellaneous Notes Pt called in asking question about the two rectal procedures she is having done on 04/16/22. I gave her the two phone numbers it said to call for any information regarding the one procedure. The second procedure it looked like you only needed to make sure you had ID and insurance information. documented in this encounter [facility] 04-09-2022 Miscellaneous Notes Pt informed, verbalized [...] call and advise. documented in this encounter [facility] 04-07-2022 History of Present illness Narrative [...] Take 5,000 Units by mouth once daily. fjnsh-7a-see-epa-fish oil-D3 350 mg-400 mg- 1,000 unit cap [...] Efra Stinson MD documented in this encounter [facility] 03-22-2022 Miscellaneous Notes Opened in Error documented in this encounter [facility] 03-08-2022 History of Present illness Narrative [...] 2022 11:30 AM documented in this encounter [facility] 03-07-2022 Miscellaneous Notes Patient phoned back stating Yi Gonsalves Np, at [facility] is the one who ordered the mag citrate, which is OTC, and on a national back order. Given patient phone number- [phone], which is the number listed on the [...] able to reach that office. Patient uses [facility] for her pharmacy if needed. documented in this encounter [facility] 03-06-2022 Miscellaneous Notes Patient given results and verbalized understanding of instructions given. Johanna Kilpatrick Please call patient and let her know her COVID and influenza were negative. Follow-up with PCP as needed. documented in this encounter [facility] 03-05-2022 History of Present illness Narrative This note was created using [employer]. Subjective Anaya Wilson is a 82 year [...] Take 5,000 Units by mouth once daily. qmteo-7t-vva-epa-fish oil-D3 350 mg-400 mg- 1,000 unit cap [...] Laisha Espinoza PA-C documented in this encounter [facility] 02-16-2022 Instructions Lynne Silverman APRN.[facility] - 02/16/2022 8:59 AM EST These are [...] (IL10, IL-6, and TNF-alpha). They come as cnex-qq-rkcqeta capsules that you take just once a [...] or lactose. Culturelle is available in the [facility] pharmacy and/or on-line at www.Kewegoe.[employer] Align capsules contain Bifantis (Bifidobacterium infantis 97653), a purified, unique probiotic strain that has been clinically proven to improve digestive health. Website for more information for Align is www.X2TV.[employer] or . Alig n is also lactose [...] on where to buy Florajen-3 go to http://www.inDinero.[employer]/hydroelectric station operator/i ndex.cfm Any of these can be swallowed whole or opened and sprinkled onto applesauce or puddings. Should not be mixed into hot foods or acidy foods. Both are best if kept in the refrigerator. They may be available at various drugstores. documented in this encounter [facility] 02-16-2022 History of Present illness Narrative [...] Take 5,000 Units by mouth once daily. icdmr-9v-zkx-epa-fish oil-D3 350 mg-400 mg- 1,000 unit cap [...] Lynne Silverman APRN.KEVIN documented in this encounter [facility] 02-16-2022 Nurse Note Post void bladder scan completed. 7 ml residual remaining. Results reported to Lynne Silverman CNP documented in this encounter [facility] 02-14-2022 History of Present illness Narrative CC: Anaya Wilson is a 81 year old female who presents to the office for follow up HPI: Seen in office 6 weeks ago on 12/05/21, at that time Patient was recently at [facility] 3 days ago for complaints [...] Take 5,000 Units by mouth once daily. ubtaw-3u-gag-epa-fish oil-D3 350 mg-400 mg- 1,000 unit cap [...] to prolapse of bladder or other cause. Edenilosn Nicholson DO Return if no improvement. Follow up with Edenilson Nicholson DO. To ER if develops chest pain, shortness of breath Discussed risks, benefits, alternatives, and potential side effects of medications. Patient/Guardian expressed understanding and agreed with the plan. See patient instructions. Edenilson Nicholson DO [address] [place] [address] documented in this encounter [facility] 02-11-2022 Miscellaneous Notes Patient given results and verbalized understanding of instructions given. Johanna Kilpatrick Please notify that the urine culture showed no infection. May continue taking the antibiotic if symptoms are improving. If symptoms persist/worsen f/u with primary care. documented in this encounter [facility] 02-10-2022 Instructions Johnie Aguirre APRN.KEVIN - 02/10/2022 3:46 PM EST [...] or fluids down. documented in this encounter [facility] 02-10-2022 History of Present illness Narrative Subjective HPI A nontoxic appearing female presents to urgent care with chief complaint of possible UTI. Duration of symptoms 1 day. Associated symptoms dysuria, frequency, and urgency. Patient has history of UTIs in past with similar signs and symptoms. Patient denies the use of any vibw-sgu-fskdgfl medications or home remedies for symptom management. [...] Take 5,000 Units by mouth once daily. vqvir-0f-cvz-epa-fish oil-D3 350 mg-400 mg- 1,000 unit cap [...] of care. This note was generated using [employer] software. It may contain errors in wording, punctuation, or spelling. Johnie Aguirre APRN.KEVIN documented in this encounter [facility] 02-09-2022 History of Present illness Narrative [...] program to facilitate proper performance and compliance. Self-Long Term Management: 1: Thoroughly discussed PT role for POP, possibility that exercises might not be the only plan of action for POP, importance of discussing with referring provider about other options if no progress made with entry level java developer Intervention: Skilled judgment in the selection of proper modification for activity of daily living/home management based on clinical presentation, deficits, and needs. Billing Therapeutic Exercise Treatment Minutes: 28 Self-Care/Home Management Treatment Minutes: 15 Total Treatment Time Minutes (timed/untimed): 43 Laisha Sullivan PT documented in this encounter [facility] 01-24-2022 Miscellaneous Notes Patient aware of [...] is having urinary symptoms. Results copied from [facility]: 10,000 -<50,000 CFU/ml Streptococcus anginosus Abnormal No susceptibility testing done. Elizabeth Perez, RN Pt seen 01/22/22 & urine was sent to the lab. Pt reports she is urination more frequently than she was during appt. Urine culture pending, pt aware, Shabana Moreno LPN documented in this encounter [facility] 01-23-2022 History of Present illness Narrative [...] Patient to be seen for Therapeutic exercise (22073);Manual therapy (44587);Self-fdc management (12424);Patient/Family/Caregiver Education PLAN FOR NEXT VISIT: progress exercises [...] Laisha Sullivan PT documented in this encounter [facility] 01-22-2022 History of Present illness Narrative CC: Anaya Wilson is a 81 year old female who presents to the office for follow up HPI: Seen in office 6 weeks ago on 12/05/21, at that time Patient was recently at [facility] 3 days ago for complaints [...] Take 5,000 Units by mouth once daily. znibw-6n-ehl-epa-fish oil-D3 350 mg-400 mg- 1,000 unit cap [...] plan. See patient instructions. Edenilson Nicholson DO [address] [place] [address] documented in this encounter [facility] 01-22-2022 Instructions Edenilson Nicholson DO - 01/22/2022 2:27 PM EST Moist heating pad - rice pack tube sock for 2 min in microwave then stretch neck muscles including the turkey gobbler double chin exercise documented in this encounter [facility] 01-19-2022 Miscellaneous Notes Patient contacted and [...] sore throat, or cold symptoms Protocols used: Jhfacgpp-QOZNJ-RG documented in this encounter [facility] 01-16-2022 History of Present illness Narrative [...] Laisha Sullivan PT documented in this encounter [facility] 01-14-2022 Miscellaneous Notes Patient notified of results, verbalized understanding of instructions given. Noemi Steinberg MA No bacterial growth noted on urine culture. Symptoms persist follow-up with PCP. Johnie Aguirre APRN.KEVIN documented in this encounter [facility] 01-12-2022 History of Present illness Narrative [...] Take 5,000 Units by mouth once daily. ixkfj-7g-mha-epa-fish oil-D3 350 mg-400 mg- 1,000 unit cap [...] Claudia Jones APRN.KEVIN documented in this encounter [facility] 01-12-2022 Miscellaneous Notes Patient calls for [...] pain with urination. Afebrile. Protocols used: Urinary Qjvzaehn-HCORB-ZZ documented in this encounter [facility] 12-27-2021 Miscellaneous Notes Agree with below [...] keep nares moist. documented in this encounter [facility] 12-22-2021 History of Present illness Narrative [...] Take 5,000 Units by mouth once daily. sowxp-6t-jpr-epa-fish oil-D3 350 mg-400 mg- 1,000 unit cap [...] prescription given at today's appointment. Michael Del Castillo PA-C documented in this encounter [facility] 12-22-2021 Miscellaneous Notes Radiology Service Progress [...] 2021 12:34 PM documented in this encounter [facility] 12-06-2021 Miscellaneous Notes Addended by: YI GONSALVES on: 12/06/2021 01:30 PM Modules accepted: Orders documented in this encounter [facility] 12-06-2021 History of Present illness Narrative HISTORY AND PHYSICAL Anaya Morrow Jaylyn 1940 REFERRING PHYSICIAN: Neal Ware* CHIEF COMPLAINT: Consult [place] [place] HPI: The patient is [...] was sticking out. She then presented to [facility] emergency department on December 02, 2021. She [...] Take 5,000 Units by mouth once daily. wvhyp-6z-wtx-epa-fish oil-D3 350 mg-400 mg- 1,000 unit cap [...] her to the pelvic floor clinic at [facility] for evaluation and consideration of treatment for [...] Juan Lagos MD documented in this encounter [facility] 12-05-2021 History of Present illness Narrative CC: Anaya Wilson is a 81 year old female who presents to the office for EMERGENCY DEPARTMENT follow up HPI: Patient was recently at [facility] 3 days ago for complaints [...] Take 5,000 Units by mouth once daily. yslyd-2s-ynq-epa-fish oil-D3 350 mg-400 mg- 1,000 unit cap [...] plan. See patient instructions. Edenilson Nicholson DO [address] [place] [address] documented in this encounter [facility] 12-02-2021 Miscellaneous Notes Reason for call: [...] understanding and will seek evaluation at the [facility] Reason for Disposition Large mass protruding out of rectum Protocols used: Rectal Hoqlkvnq-YTFBN-OH documented in this encounter [facility] 11-20-2021 Miscellaneous Notes Patient calls to [...] : NA Protocols used: Leg Swelling and Saloo-MEYXE-VJ, Rash or Redness - Kbcqvjvqk-LCUBP-NU documented in this encounter [facility] 11-01-2021 Miscellaneous Notes Patient notified and verbalized understanding Madeline Horn Cma The following approved medication requests have been transmitted electronically. Requested Prescriptions Signed Prescriptions Disp Refills famotidine (PEPCID) 40 mg tablet 180 tablet 1 Sig: Take 1 tablet by mouth twice daily. Authorizing Provider: KANDI CONTRERAS APRN.CNP Patient called to refill famotidine; not on current med list. Uses [facility] in [place]. documented in this encounter [facility] 11-01-2021 Miscellaneous Notes Patient notified of results. atient verbalizes understanding. Yi , RN Please let Anaya know that her COVID test and stool tests have all come back negative. Angeline Monterroso APRN.CNP documented in this encounter [facility] 10-30-2021 Miscellaneous Notes Patient notified and verbalized understanding Madeline Horn Cma Please let Anaya know that her test is negative for COVID. Angeline Monterroso APRN.CNP documented in this encounter [facility] 10-29-2021 Miscellaneous Notes Patient calling with return call/Message from office: Patient called back and given message from office note dated 10/28/21. Pt verbalized understanding of message given. . Patient denies any new or worsening symptoms of which a provider is not aware:Yes Please let Anaya know that her test is negative for COVID. MIHIR Hancock LPN documented in this encounter [facility] 10-27-2021 History of Present illness Narrative [...] Take 5,000 Units by mouth once daily. tomth-5q-cwl-epa-fish oil-D3 350 mg-400 mg- 1,000 unit cap [...] - COVID WITH FLUA+B, ROUTINE Angeline Monterroso APRN.BACKWINDER documented in this encounter [facility] 10-27-2021 Miscellaneous Notes Noted, thank you. Angeline Monterroso APRN.KEVIN Protocol recommends see provider in 24 hours. 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 Care plan reviewed with patient. Patient voices [...] in stool. 12. : Postmenopausal Protocols used: [id number] documented in this encounter [facility] 10-20-2021 Miscellaneous Notes Last Office Visit: 10/06/2021 Future Office Visit: 01/22/2022 Last Medication Refill: loratadine 11/10/2020 30 tab 11 refill Date of Last Labs: 08/01/2021 documented in this encounter [facility] 10-12-2021 Miscellaneous Notes Patient reports she [...] 04/19/2021 37 Please advise. Thank you. Cristhian Faulknre RN documented in this encounter [facility] 09-18-2021 History of Present illness Narrative Images from the original note were not included. 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 Start the augmentin twice daily X 1 week. 2. Hold the methotrexate while on the augmentin. 3. Keep wound clean and dry. Apply antibiotic ointment. 4. Watch the cat. documented in this encounter [facility] 09-12-2021 History of Present illness Narrative [...] Take 5,000 Units by mouth once daily. uqfzn-4w-jly-epa-fish oil-D3 (VITAMIN-D + OMEGA-3) 350 mg- 1,000 [...] as needed for worsening/no improvement. Charissa Jauregui APRN.BACKWINDER documented in this encounter [facility] 08-03-2021 Miscellaneous Notes Left pt detailed [...] Margaret Bacon DPM documented in this encounter [facility] 08-02-2021 History of Present illness Narrative [...] 2021 10:01 AM documented in this encounter [facility] 08-02-2021 History of Present illness Narrative [...] Take 5,000 Units by mouth once daily. grdgh-4v-box-epa-fish oil-D3 (VITAMIN-D + OMEGA-3) 350 mg- 1,000 [...] Margaret Bacon DPM Podiatry [address] [facility] [address] Dept: [phone] Dept documented in this encounter [facility] 08-02-2021 Instructions Margaret Bacon - 08/02/2021 9:42 AM EDT Powerstep Original Full length. Can purchase at [employer] here in [place], [employer] in [place] or [place]. Also can find in [place] in [facility]. Powersteps can also be purchased online, starting [...] fits well together documented in this encounter [facility] 07-21-2021 Miscellaneous Notes Done. Thank you, [...] think she may benefit from seeing a clergy member to help with the area that is sore and try to prevent it from rubbing and hurting. Please let me know if she is agreeable to this consult. Angeline Monterroso APRN.CNP documented in this encounter [facility] 07-20-2021 Instructions Angeline Monterroso APRN.CNP - 07/20/2021 12:31 PM EDT Have your foot xray completed. You can use the valacyclovir medication when you feel a cold sore coming on. Start taking your Claritin daily. This should help with your throat and your ear. Try to limit carbohydrates somewhat. documented in this encounter [facility] 07-20-2021 History of Present illness Narrative [...] Take 5,000 Units by mouth once daily. ldcly-9k-fab-epa-fish oil-D3 (VITAMIN-D + OMEGA-3) 350 mg- 1,000 [...] ICD9: 784.2, ICD10: R22.0 Benign. Angeline Monterroso APRN.BACKWINDER Greater than 50% of 46-minute visit spent face to face with patient in counseling and education. documented in this encounter [facility] 07-19-2021 Miscellaneous Notes Patient has been identified by name and date of : Yes Pending Prescriptions Disp Refills METHOTREXATE SODIUM 2.5 MG TABLET 56 tablet 0 Sig: Take 6 tablets once weekly,on ANTON: No RX INSTRUCTIONS: Patient aware RX will be sent to pharmacy. No need to notify patient. Sharon Pack Pss documented in this encounter [facility] 07-17-2021 History of Present illness Narrative Images from the original note were not included. Ortho Knee Follow Up Note Narrative Referring Provider: Michael Del Castillo [address] [facility] [address] PCP: Edenilson Nicholson, DO IMPRESSION/PLAN: 81 year [...] Anaya Wilson presents today for a a detention follow-up visit. She also complains that ADLs [...] - Planned treatment interventions - Therapeutic exercise (77309);Neuromuscular re-education (66332);Manual therapy (43655);Therapeutic activities (10651);Self-fdc management (30776);Patient/Family/Caregiver Education;Body Mechanics Training - Plan for next [...] Del Castillo PA-C documented in this encounter [facility] 07-17-2021 History of Present illness Narrative [...] 2021 12:48 PM documented in this encounter [facility] 06-29-2021 Miscellaneous Notes Pt was notified [...] Elizabeth Perez RN documented in this encounter [facility] 06-28-2021 History of Present illness Narrative [...] or edema Arthritis inflammatory, taking methotrexate, seeing [facility] Assurance Manager Chronic neck pain, muscle tension. Starting PHYSICAL THERAPY at [facility], 1st session was this week. She [...] she has been doing PHYSICAL THERAPY at [facility] for this and feels it is helping [...] Take 5,000 Units by mouth once daily. uobwj-7z-rlt-epa-fish oil-D3 (VITAMIN-D + OMEGA-3) 350 mg- 1,000 [...] ICD9: 714.9, ICD10: M19.90 - f/u with [facility] Assurance Manager 6. Rib injury - ICD9: 959.11, ICD10: [...] See patient instructions. Edenilson Nicholson DO [address] [place] [address] documented in this encounter [facility] 06-13-2021 Miscellaneous Notes Patient notified of [...] resolved. The orders are in. Charissa Jauregui APRN.BACKWINDER documented in this encounter [facility] 06-09-2021 History of Present illness Narrative [...] 2021 2:56 PM documented in this encounter [facility] 06-09-2021 Instructions Charissa Jauregui APRN.BACKWINDER - 06/09/2021 2:41 PM EDT 1. Start the prednisone. 2. Ice to the area. 3. Get the xrays. 4. Let us know if no better/worsening. documented in this encounter [facility] 06-09-2021 History of Present illness Narrative [...] Take 5,000 Units by mouth once daily. iozmb-0v-baa-epa-fish oil-D3 (VITAMIN-D + OMEGA-3) 350 mg- 1,000 [...] APRN.KEVIN This note was partially generated using [employer] voice recognition system. Note was reviewed for accuracy. There may be minor misspellings or grammar miscues with [employer] voice recognition. documented in this encounter [facility] 06-08-2021 Miscellaneous Notes Patient notified of [...] Angeline Monterroso APRN.CNP documented in this encounter [facility] 06-07-2021 History of Present illness Narrative [...] Take 5,000 Units by mouth once daily. juatu-2t-ozm-epa-fish oil-D3 (VITAMIN-D + OMEGA-3) 350 mg- 1,000 [...] Efra Stinson MD documented in this encounter [facility] 05-02-2021 History of Present illness Narrative [...] 2021 1:40 PM documented in this encounter [facility] 04-10-2021 History of Present illness Narrative [...] 2021 3:01 PM documented in this encounter [facility] 10-03-2020 History of Present illness Narrative [...] 2020 1:01 PM documented in this encounter [facility] 06-04-2017 History of Past i llness Narrative Problem Noted Date Resolved Date OA (osteoarthritis) of knee 06/04/2017 0406/2017 Chronic pain of right knee 05/20/201707/04 Primary osteoarthritis of left knee 05/10/2017 06/05/2017 Overview: Added automatically from request for surgery [id number] Abdominal pain 11/01/2016 05/20/2017 Cystitis 11/01/2016 05/20/2017 [...] of this encounter (statuses as of 06/07/2021) [facility] History of Past illness Narrative* Problem Noted Date Resolved Date OA (osteoarthritis) of knee 06/04/201706/2017 Chronic pain of right knee 05/20/201707/04 Primary osteoarthritis of left knee 05/10/2017 06/05/2017 Overview: Added automatically from request for surgery [id number] Abdominal pain 11/01/2016 05/20/2017 Cystitis 11/01/2016 05/20/2017 [...] of this encounter (statuses as of 06/09/2021) [facility] History of Past illness Narrative* Problem Noted Date Resolved Date OA (osteoarthritis) of knee 06/04/20170 06/2017 Chronic pain of right knee 05/20/201707/04 Primary osteoarthritis of left knee 05/10/2017 06/05/2017 Overview: Added automatically from request for surgery [id number] Abdominal pain 11/01/2016 05/20/2017 Cystitis 11/01/2016 05/20/2017 [...] of this encounter (statuses as of 06/13/2021) [facility] History of Past illness Narrative* Problem Noted Date Resolved Date OA (osteoarthritis) of knee 06/04/2017 04/06/2017 Chronic pain of right knee 05/20/201707/04 Primary osteoarthritis of left knee 05/10/2017 06/05/2017 Overview: Added automatically from request for surgery [id number] Abdominal pain 11/01/2016 05/20/2017 Cystitis 11/01/2016 05/20/2017 [...] of this encounter (statuses as of 06/16/2021) [facility] of Past [facility] Narrative* Problem Noted Date Resolved Date OA (osteoarthritis) of knee 06/04/20170 06/2017 Chronic pain of right knee 05/20/201707/04 Primary osteoarthritis of left knee 05/10/2017 06/05/2017 Overview: Added automatically from request for surgery [id number] Abdominal pain 11/01/2016 05/20/2017 Cystitis 11/01/2016 05/20/2017 [...] of this encounter (statuses as of 06/23/2021) [facility] of Past [facility] Narrative* Problem Noted Date Resolved Date OA (osteoarthritis) of knee 06/04/201706/2017 Chronic pain of right knee 05/20/201707/04 Primary osteoarthritis of left knee 05/10/2017 06/05/2017 Overview: Added automatically from request for surgery [id number] Abdominal pain 11/01/2016 05/20/2017 Cystitis 11/01/2016 05/20/2017 [...] of this encounter (statuses as of 06/28/2021) [facility] Narrative* Problem Noted Date Resolved Date OA (osteoarthritis) of knee 06/04/201706/2017 Chronic pain of right knee 05/20/201707/04 Primary osteoarthritis of left knee 05/10/2017 06/05/2017 Overview: Added automatically from request for surgery [id number] Abdominal pain 11/01/2016 05/20/2017 Cystitis 11/01/2016 05/20/2017 [...] of this encounter (statuses as of 06/29/2021) [facility] Narrative* Problem Noted Date Resolved Date OA (osteoarthritis) of knee 06/04/20170 06/2017 Chronic pain of right knee 05/20/201707/04 Primary osteoarthritis of left knee 05/10/2017 06/05/2017 Overview: Added automatically from request for surgery [id number] Abdominal pain 11/01/2016 05/20/2017 Cystitis 11/01/2016 05/20/2017 [...] of this encounter (statuses as of 07/05/2021) [facility] Past [facility] Narrative* Problem Noted Date Resolved Date OA (osteoarthritis) of knee 06/04/2017 0406/2017 Chronic pain of right knee 05/20/201707/04 Primary osteoarthritis of left knee 05/10/2017 06/05/2017 Overview: Added automatically from request for surgery [id number] Abdominal pain 11/01/2016 05/20/2017 Cystitis 11/01/2016 05/20/2017 [...] of this encounter (statuses as of 07/17/2021) [facility] Narrative* Problem Noted Date Resolved Date OA (osteoarthritis) of knee 06/04/2017/0 06/2017 Chronic pain of right knee 05/20/201707/04 Primary osteoarthritis of left knee 05/10/2017 06/05/2017 Overview: Added automatically from request for surgery [id number] Abdominal pain 11/01/2016 05/20/2017 Cystitis 11/01/2016 05/20/2017 [...] of this encounter (statuses as of 07/18/2021) [facility] Narrative* Problem Noted Date Resolved Date OA (osteoarthritis) of knee 06/04/20170 06/2017 Chronic pain of right knee 05/20/201707/04 Primary osteoarthritis of left knee 05/10/2017 06/05/2017 Overview: Added automatically from request for surgery [id number] Abdominal pain 11/01/2016 05/20/2017 Cystitis 11/01/2016 05/20/2017 [...] of this encounter (statuses as of 07/19/2021) [facility] Narrative* Problem Noted Date Resolved Date OA (osteoarthritis) of knee 06/04/20170 06/2017 Chronic pain of right knee 05/20/201707/04 Primary osteoarthritis of left knee 05/10/2017 06/05/2017 Overview: Added automatically from request for surgery [id number] Abdominal pain 11/01/2016 05/20/2017 Cystitis 11/01/2016 05/20/2017 [...] of this encounter (statuses as of 07/21/2021) [facility] Narrative* Problem Noted Date Resolved Date OA (osteoarthritis) of knee 06/04/20170 06/2017 Chronic pain of right knee 05/20/201707/04 Primary osteoarthritis of left knee 05/10/2017 06/05/2017 Overview: Added automatically from request for surgery [id number] Abdominal pain 11/01/2016 05/20/2017 Cystitis 11/01/2016 05/20/2017 [...] of this encounter (statuses as of 07/24/2021) [facility] Narrative* Problem Noted Date Resolved Date OA (osteoarthritis) of knee 06/04/201706/2017 Chronic pain of right knee 05/20/201707/04 Primary osteoarthritis of left knee 05/10/2017 06/05/2017 Overview: Added automatically from request for surgery [id number] Abdominal pain 11/01/2016 05/20/2017 Cystitis 11/01/2016 05/20/2017 [...] of this encounter (statuses as of 08/02/2021) [facility] Narrative* Problem Noted Date Resolved Date OA (osteoarthritis) of knee 06/04/20170 06/2017 Chronic pain of right knee 05/20/201707/04 Primary osteoarthritis of left knee 05/10/2017 06/05/2017 Overview: Added automatically from request for surgery [id number] Abdominal pain 11/01/2016 05/20/2017 Cystitis 11/01/2016 05/20/2017 [...] of this encounter (statuses as of 08/03/2021) [facility] Narrative* Problem Noted Date Resolved Date OA (osteoarthritis) of knee 06/04/201706/2017 Chronic pain of right knee 05/20/201707/04 Primary osteoarthritis of left knee 05/10/2017 06/05/2017 Overview: Added automatically from request for surgery [id number] Abdominal pain 11/01/2016 05/20/2017 Cystitis 11/01/2016 05/20/2017 [...] of this encounter (statuses as of 08/07/2021) [facility] Narrative* Problem Noted Date Resolved Date OA (osteoarthritis) of knee 06/04/20170 06/2017 Chronic pain of right knee 05/20/201707/04 Primary osteoarthritis of left knee 05/10/2017 06/05/2017 Overview: Added automatically from request for surgery [id number] Abdominal pain 11/01/2016 05/20/2017 Cystitis 11/01/2016 05/20/2017 [...] of this encounter (statuses as of 09/12/2021) [facility] Narrative* Problem Noted Date Resolved Date OA (osteoarthritis) of knee 06/04/20170 06/2017 Chronic pain of right knee 05/20/201707/04 Primary osteoarthritis of left knee 05/10/2017 06/05/2017 Overview: Added automatically from request for surgery [id number] Abdominal pain 11/01/2016 05/20/2017 Cystitis 11/01/2016 05/20/2017 [...] of this encounter (statuses as of 09/18/2021) [facility] Narrative* Problem Noted Date Resolved Date OA (osteoarthritis) of knee 06/04/20170 06/2017 Chronic pain of right knee 05/20/201707/04 Primary osteoarthritis of left knee 05/10/2017 06/05/2017 Overview: Added automatically from request for surgery [id number] Abdominal pain 11/01/2016 05/20/2017 Cystitis 11/01/2016 05/20/2017 [...] of this encounter (statuses as of 09/18/2021) [facility] Narrative* Problem Noted Date Resolved Date OA (osteoarthritis) of knee 06/04/20170 06/2017 Chronic pain of right knee 05/20/201707/04 Primary osteoarthritis of left knee 05/10/2017 06/05/2017 Overview: Added automatically from request for surgery [id number] Abdominal pain 11/01/2016 05/20/2017 Cystitis 11/01/2016 05/20/2017 [...] of this encounter (statuses as of 10/12/2021) [facility] Narrative* Problem Noted Date Resolved Date OA (osteoarthritis) of knee 06/04/2017 04/0 06/2017 Chronic pain of right knee 05/20/201707/04 Primary osteoarthritis of left knee 05/10/2017 06/05/2017 Overview: Added automatically from request for surgery [id number] Abdominal pain 11/01/2016 05/20/2017 Cystitis 11/01/2016 05/20/2017 [...] of this encounter (statuses as of 10/20/2021) [facility] Narrative* Problem Noted Date Resolved Date OA (osteoarthritis) of knee 06/04/20170 06/2017 Chronic pain of right knee 05/20/201707/04 Primary osteoarthritis of left knee 05/10/2017 06/05/2017 Overview: Added automatically from request for surgery [id number] Abdominal pain 11/01/2016 05/20/2017 Cystitis 11/01/2016 05/20/2017 [...] of this encounter (statuses as of 10/27/2021) [facility] Narrative* Problem Noted Date Resolved Date OA (osteoarthritis) of knee 06/04/20170 06/2017 Chronic pain of right knee 05/20/201707/04 Primary osteoarthritis of left knee 05/10/2017 06/05/2017 Overview: Added automatically from request for surgery [id number] Abdominal pain 11/01/2016 05/20/2017 Cystitis 11/01/2016 05/20/2017 [...] of this encounter (statuses as of 10/29/2021) [facility] Narrative* Problem Noted Date Resolved Date OA (osteoarthritis) of knee 06/04/20170 06/2017 Chronic pain of right knee 05/20/201707/04 Primary osteoarthritis of left knee 05/10/2017 06/05/2017 Overview: Added automatically from request for surgery [id number] Abdominal pain 11/01/2016 05/20/2017 Cystitis 11/01/2016 05/20/2017 [...] of this encounter (statuses as of 10/30/2021) [facility] Narrative* Problem Noted Date Resolved Date OA (osteoarthritis) of knee 06/04/2017 040 06/2017 Chronic pain of right knee 05/20/201707/04 Primary osteoarthritis of left knee 05/10/2017 06/05/2017 Overview: Added automatically from request for surgery [id number] Abdominal pain 11/01/2016 05/20/2017 Cystitis 11/01/2016 05/20/2017 [...] of this encounter (statuses as of 10/30/2021) [facility] Narrative* Problem Noted Date Resolved Date OA (osteoarthritis) of knee 06/04/201706/2017 Chronic pain of right knee 05/20/201707/04 Primary osteoarthritis of left knee 05/10/2017 06/05/2017 Overview: Added automatically from request for surgery [id number] Abdominal pain 11/01/2016 05/20/2017 Cystitis 11/01/2016 05/20/2017 [...] of this encounter (statuses as of 11/01/2021) [facility] Narrative* Problem Noted Date Resolved Date OA (osteoarthritis) of knee 06/04/201706/2017 Chronic pain of right knee 05/20/201707/04 Primary osteoarthritis of left knee 05/10/2017 06/05/2017 Overview: Added automatically from request for surgery [id number] Abdominal pain 11/01/2016 05/20/2017 Cystitis 11/01/2016 05/20/2017 [...] of this encounter (statuses as of 11/01/2021) [facility]arrative* Problem Noted Date Resolved Date OA (osteoarthritis) of knee 06/04/201706/2017 Chronic pain of right knee 05/20/201707/04 Primary osteoarthritis of left knee 05/10/2017 06/05/2017 Overview: Added automatically from request for surgery [id number] Abdominal pain 11/01/2016 05/20/2017 Cystitis 11/01/2016 05/20/2017 [...] of this encounter (statuses as of 11/20/2021) [facility] Narrative* Problem Noted Date Resolved Date OA (osteoarthritis) of knee 06/04/20170 06/2017 Chronic pain of right knee 05/20/201707/04 Primary osteoarthritis of left knee 05/10/2017 06/05/2017 Overview: Added automatically from request for surgery [id number] Abdominal pain 11/01/2016 05/20/2017 Cystitis 11/01/2016 05/20/2017 [...] of this encounter (statuses as of 12/03/2021) [facility]ative* Problem Noted Date Resolved Date OA (osteoarthritis) of knee 06/04/201706/2017 Chronic pain of right knee 05/20/201707/04 Primary osteoarthritis of left knee 05/10/2017 06/05/2017 Overview: Added automatically from request for surgery [id number] Abdominal pain 11/01/2016 05/20/2017 Cystitis 11/01/2016 05/20/2017 [...] of this encounter (statuses as of 12/05/2021) [facility] Narrative* Problem Noted Date Resolved Date OA (osteoarthritis) of knee 06/04/20170 06/2017 Chronic pain of right knee 05/20/201707/04 Primary osteoarthritis of left knee 05/10/2017 06/05/2017 Overview: Added automatically from request for surgery [id number] Abdominal pain 11/01/2016 05/20/2017 Cystitis 11/01/2016 05/20/2017 [...] of this encounter (statuses as of 12/06/2021) [facility] Narr[facility]* Problem Noted Date Resolved Date OA (osteoarthritis) of knee 06/04/20170 06/2017 Chronic pain of right knee 05/20/201707/04 Primary osteoarthritis of left knee 05/10/2017 06/05/2017 Overview: Added automatically from request for surgery [id number] Abdominal pain 11/01/2016 05/20/2017 Cystitis 11/01/2016 05/20/2017 [...] of this encounter (statuses as of 12/22/2021) [facility] Narrative* Problem Noted Date Resolved Date OA (osteoarthritis) of knee 06/04/20170 06/2017 Chronic pain of right knee 05/20/201707/04 Primary osteoarthritis of left knee 05/10/2017 06/05/2017 Overview: Added automatically from request for surgery [id number] Abdominal pain 11/01/2016 05/20/2017 Cystitis 11/01/2016 05/20/2017 [...] of this encounter (statuses as of 12/23/2021) [facility] Narrative* Problem Noted Date Resolved Date OA (osteoarthritis) of knee 06/04/20170 06/2017 Chronic pain of right knee 05/20/201707/04 Primary osteoarthritis of left knee 05/10/2017 06/05/2017 Overview: Added automatically from request for surgery [id number] Abdominal pain 11/01/2016 05/20/2017 Cystitis 11/01/2016 05/20/2017 [...] of this encounter (statuses as of 01/12/2022) [facility]arrative* Problem Noted Date Resolved Date OA (osteoarthritis) of knee 06/04/201706/2017 Chronic pain of right knee 05/20/201707/04 Primary osteoarthritis of left knee 05/10/2017 06/05/2017 Overview: Added automatically from request for surgery [id number] Abdominal pain 11/01/2016 05/20/2017 Cystitis 11/01/2016 05/20/2017 [...] of this encounter (statuses as of 01/12/2022) [facility]* Problem Noted Date Resolved Date OA (osteoarthritis) of knee 06/04/201706/2017 Chronic pain of right knee 05/20/201707/04 Primary osteoarthritis of left knee 05/10/2017 06/05/2017 Overview: Added automatically from request for surgery [id number] Abdominal pain 11/01/2016 05/20/2017 Cystitis 11/01/2016 05/20/2017 [...] of this encounter (statuses as of 01/14/2022) [facility]* Problem Noted Date Resolved Date OA (osteoarthritis) of knee 06/04/2017 04/06/2017 Chronic pain of right knee 05/20/201707/04 Primary osteoarthritis of left knee 05/10/2017 06/05/2017 Overview: Added automatically from request for surgery [id number] Abdominal pain 11/01/2016 05/20/2017 Cystitis 11/01/2016 05/20/2017 [...] of this encounter (statuses as of 01/16/2022) [place] [address]-03-2018 History of Past illness Narrative* Problem Noted Date Resolved Date OA (osteoarthritis) of knee 06/04/2017 04/0 06/2017 Chronic pain of right knee 05/20/201707/04 Primary osteoarthritis of left knee 05/10/2017 06/05/2017 Overview: Added automatically from request for surgery [id number] Abdominal pain 11/01/2016 05/20/2017 Cystitis 11/01/2016 05/20/2017 [...] of this encounter (statuses as of 01/16/2022) [facility]04-[facility]2018 History of Past illness Narrative* Problem Noted Date Resolved Date OA (osteoarthritis) of knee 06/04/20170 06/2017 Chronic pain of right knee 05/20/201707/04 Primary osteoarthritis of left knee 05/10/2017 06/05/2017 Overview: Added automatically from request for surgery [id number] Abdominal pain 11/01/2016 05/20/2017 Cystitis 11/01/2016 05/20/2017 [...] of this encounter (statuses as of 01/20/2022) [facility]2018 History of Past illness Narrative* Problem Noted Date Resolved Date OA (osteoarthritis) of knee 06/04/20170 06/2017 Chronic pain of right knee 05/20/201707/04 Primary osteoarthritis of left knee 05/10/2017 06/05/2017 Overview: Added automatically from request for surgery [id number] Abdominal pain 11/01/2016 05/20/2017 Cystitis 11/01/2016 05/20/2017 [...] of this encounter (statuses as of 01/23/2022) [facility] History of Past illness Narrative* Problem Noted Date Resolved Date OA (osteoarthritis) of knee 06/04/20170 06/2017 Chronic pain of right knee 05/20/201707/04 Primary osteoarthritis of left knee 05/10/2017 06/05/2017 Overview: Added automatically from request for surgery [id number] Abdominal pain 11/01/2016 05/20/2017 Cystitis 11/01/2016 05/20/2017 [...] of this encounter (statuses as of 01/23/2022) [facility] History of Past illness Narrative* Problem Noted Date Resolved Date OA (osteoarthritis) of knee 06/04/201706/2017 Chronic pain of right knee 05/20/201707/04 Primary osteoarthritis of left knee 05/10/2017 06/05/2017 Overview: Added automatically from request for surgery [id number] Abdominal pain 11/01/2016 05/20/2017 Cystitis 11/01/2016 05/20/2017 [...] of this encounter (statuses as of 01/24/2022) [facility] History of Past illness Narrative* Problem Noted Date Resolved Date OA (osteoarthritis) of knee 06/04/201706/2017 Chronic pain of right knee 05/20/201707/04 Primary osteoarthritis of left knee 05/10/2017 06/05/2017 Overview: Added automatically from request for surgery [id number] Abdominal pain 11/01/2016 05/20/2017 Cystitis 11/01/2016 05/20/2017 [...] of this encounter (statuses as of 02/09/2022) [facility] History of Past illness Narrative* Problem Noted Date Resolved Date OA (osteoarthritis) of knee 06/04/201706/2017 Chronic pain of right knee 05/20/201707/04 Primary osteoarthritis of left knee 05/10/2017 06/05/2017 Overview: Added automatically from request for surgery [id number] Abdominal pain 11/01/2016 05/20/2017 Cystitis 11/01/2016 05/20/2017 [...] of this encounter (statuses as of 02/10/2022) [facility] History of Past illness Narrative* Problem Noted Date Resolved Date OA (osteoarthritis) of knee 06/04/20170 06/2017 Chronic pain of right knee 05/20/201707/04 Primary osteoarthritis of left knee 05/10/2017 06/05/2017 Overview: Added automatically from request for surgery [id number] Abdominal pain 11/01/2016 05/20/2017 Cystitis 11/01/2016 05/20/2017 [...] of this encounter (statuses as of 02/11/2022) [facility] History of Past illness Narrative* Problem Noted Date Resolved Date OA (osteoarthritis) of knee 06/04/201706/2017 Chronic pain of right knee 05/20/201707/04 Primary osteoarthritis of left knee 05/10/2017 06/05/2017 Overview: Added automatically from request for surgery [id number] Abdominal pain 11/01/2016 05/20/2017 Cystitis 11/01/2016 05/20/2017 [...] of this encounter (statuses as of 02/14/2022) [facility] History of Past illness Narrative* Problem Noted Date Resolved Date OA (osteoarthritis) of knee 06/04/20170 06/2017 Chronic pain of right knee 05/20/201707/04 Primary osteoarthritis of left knee 05/10/2017 06/05/2017 Overview: Added automatically from request for surgery [id number] Abdominal pain 11/01/2016 05/20/2017 Cystitis 11/01/2016 05/20/2017 [...] of this encounter (statuses as of 02/16/2022) [facility] History of Past illness Narrative* Problem Noted Date Resolved Date OA (osteoarthritis) of knee 06/04/20170 06/2017 Chronic pain of right knee 05/20/201707/04 Primary osteoarthritis of left knee 05/10/2017 06/05/2017 Overview: Added automatically from request for surgery [id number] Abdominal pain 11/01/2016 05/20/2017 Cystitis 11/01/2016 05/20/2017 [...] of this encounter (statuses as of 03/08/2022) [facility] History of Past illness Narrative* Problem Noted Date Resolved Date OA (osteoarthritis) of knee 06/04/20170 06/2017 Chronic pain of right knee 05/20/201707/04 Primary osteoarthritis of left knee 05/10/2017 06/05/2017 Overview: Added automatically from request for surgery [id number] Abdominal pain 11/01/2016 05/20/2017 Cystitis 11/01/2016 05/20/2017 [...] of this encounter (statuses as of 03/08/2022) [facility] History of Past illness Narrative* Problem Noted Date Resolved Date OA (osteoarthritis) of knee 06/04/20170 06/2017 Chronic pain of right knee 05/20/201707/04 Primary osteoarthritis of left knee 05/10/2017 06/05/2017 Overview: Added automatically from request for surgery [id number] Abdominal pain 11/01/2016 05/20/2017 Cystitis 11/01/2016 05/20/2017 [...] of this encounter (statuses as of 03/09/2022) [facility] History of Past illness Narrative* Problem Noted Date Resolved Date OA (osteoarthritis) of knee 06/04/201706/2017 Chronic pain of right knee 05/20/201707/04 Primary osteoarthritis of left knee 05/10/2017 06/05/2017 Overview: Added automatically from request for surgery [id number] Abdominal pain 11/01/2016 05/20/2017 Cystitis 11/01/2016 05/20/2017 [...] of this encounter (statuses as of 03/22/2022) [facility] History of Past illness Narrative* Problem Noted Date Resolved Date OA (osteoarthritis) of knee 06/04/20170 06/2017 Chronic pain of right knee 05/20/201707/04 Primary osteoarthritis of left knee 05/10/2017 06/05/2017 Overview: Added automatically from request for surgery [id number] Abdominal pain 11/01/2016 05/20/2017 Cystitis 11/01/2016 05/20/2017 [...] of this encounter (statuses as of 04/05/2022) [facility] History of Past illness Narrative* Problem Noted Date Resolved Date OA (osteoarthritis) of knee 06/04/2017 04/0 06/2017 Chronic pain of right knee 05/20/201707/04 Primary osteoarthritis of left knee 05/10/2017 06/05/2017 Overview: Added automatically from request for surgery [id number] Abdominal pain 11/01/2016 05/20/2017 Cystitis 11/01/2016 05/20/2017 [...] of this encounter (statuses as of 04/07/2022) [facility] History of Past illness Narrative* Problem Noted Date Resolved Date OA (osteoarthritis) of knee 06/04/2017/0 06/2017 Chronic pain of right knee 05/20/201707/04 Primary osteoarthritis of left knee 05/10/2017 06/05/2017 Overview: Added automatically from request for surgery [id number] Abdominal pain 11/01/2016 05/20/2017 Cystitis 11/01/2016 05/20/2017 [...] of this encounter (statuses as of 04/09/2022) [facility] History of Past illness Narrative* Problem Noted Date Resolved Date OA (osteoarthritis) of knee 06/04/20170 06/2017 Chronic pain of right knee 05/20/201707/04 Primary osteoarthritis of left knee 05/10/2017 06/05/2017 Overview: Added automatically from request for surgery [id number] Abdominal pain 11/01/2016 05/20/2017 Cystitis 11/01/2016 05/20/2017 [...] of this encounter (statuses as of 04/12/2022) [facility] History of Past illness Narrative* Problem Noted Date Resolved Date OA (osteoarthritis) of knee 06/04/2017 040 06/2017 Chronic pain of right knee 05/20/201707/04 Primary osteoarthritis of left knee 05/10/2017 06/05/2017 Overview: Added automatically from request for surgery [id number] Abdominal pain 11/01/2016 05/20/2017 Cystitis 11/01/2016 05/20/2017 [...] of this encounter (statuses as of 04/16/2022) [facility] History of Past illness Narrative* Problem Noted Date Resolved Date OA (osteoarthritis) of knee 06/04/2017 040 06/2017 Chronic pain of right knee 05/20/201707/04 Primary osteoarthritis of left knee 05/10/2017 06/05/2017 Overview: Added automatically from request for surgery [id number] Abdominal pain 11/01/2016 05/20/2017 Cystitis 11/01/2016 05/20/2017 [...] of this encounter (statuses as of 04/17/2022) [facility] History of Past illness Narrative* Problem Noted Date Resolved Date OA (osteoarthritis) of knee 06/04/20170 06/2017 Chronic pain of right knee 05/20/201707/04 Primary osteoarthritis of left knee 05/10/2017 06/05/2017 Overview: Added automatically from request for surgery [id number] Abdominal pain 11/01/2016 05/20/2017 Cystitis 11/01/2016 05/20/2017 [...] of this encounter (statuses as of 04/17/2022) [facility] History of Past illness Narrative* Problem Noted Date Resolved Date OA (osteoarthritis) of knee 06/04/20170 06/2017 Chronic pain of right knee 05/20/201707/04 Primary osteoarthritis of left knee 05/10/2017 06/05/2017 Overview: Added automatically from request for surgery [id number] Abdominal pain 11/01/2016 05/20/2017 Cystitis 11/01/2016 05/20/2017 [...] of this encounter (statuses as of 04/19/2022) [facility] History of Past illness Narrative* Problem Noted Date Resolved Date OA (osteoarthritis) of knee 06/04/201706/2017 Chronic pain of right knee 05/20/201707/04 Primary osteoarthritis of left knee 05/10/2017 06/05/2017 Overview: Added automatically from request for surgery [id number] Abdominal pain 11/01/2016 05/20/2017 Cystitis 11/01/2016 05/20/2017 [...] of this encounter (statuses as of 04/20/2022) [facility] History of Past illness Narrative* Problem Noted Date Resolved Date OA (osteoarthritis) of knee 06/04/201706/2017 Chronic pain of right knee 05/20/201707/04 Primary osteoarthritis of left knee 05/10/2017 06/05/2017 Overview: Added automatically from request for surgery [id number] Abdominal pain 11/01/2016 05/20/2017 Cystitis 11/01/2016 05/20/2017 [...] of this encounter (statuses as of 04/25/2022) [facility] History of Past illness Narrative* Problem Noted Date Resolved Date OA (osteoarthritis) of knee 06/04/201706/2017 Chronic pain of right knee 05/20/201707/04 Primary osteoarthritis of left knee 05/10/2017 06/05/2017 Overview: Added automatically from request for surgery [id number] Abdominal pain 11/01/2016 05/20/2017 Cystitis 11/01/2016 05/20/2017 [...] of this encounter (statuses as of 04/25/2022) [facility] History of Past illness Narrative* Problem Noted Date Resolved Date OA (osteoarthritis) of knee 06/04/2017 040 06/2017 Chronic pain of right knee 05/20/201707/04 Primary osteoarthritis of left knee 05/10/2017 06/05/2017 Overview: Added automatically from request for surgery [id number] Abdominal pain 11/01/2016 05/20/2017 Cystitis 11/01/2016 05/20/2017 [...] of this encounter (statuses as of 04/27/2022) [facility] History of Past illness Narrative* Problem Noted Date Resolved Date OA (osteoarthritis) of knee 06/04/20170 06/2017 Chronic pain of right knee 05/20/201707/04 Primary osteoarthritis of left knee 05/10/2017 06/05/2017 Overview: Added automatically from request for surgery [id number] Abdominal pain 11/01/2016 05/20/2017 Cystitis 11/01/2016 05/20/2017 [...] of this encounter (statuses as of 05/03/2022) [facility] History of Past illness Narrative* Problem Noted Date Resolved Date OA (osteoarthritis) of knee 06/04/20170 06/2017 Chronic pain of right knee 05/20/201707/04 Primary osteoarthritis of left knee 05/10/2017 06/05/2017 Overview: Added automatically from request for surgery [id number] Abdominal pain 11/01/2016 05/20/2017 Cystitis 11/01/2016 05/20/2017 [...] of this encounter (statuses as of 05/08/2022) [facility] History of Past illness Narrative* Problem Noted Date Resolved Date OA (osteoarthritis) of knee 06/04/20170 06/2017 Chronic pain of right knee 05/20/201707/04 Primary osteoarthritis of left knee 05/10/2017 06/05/2017 Overview: Added automatically from request for surgery [id number] Abdominal pain 11/01/2016 05/20/2017 Cystitis 11/01/2016 05/20/2017 [...] of this encounter (statuses as of 05/08/2022) [facility] History of Past illness Narrative* Problem Noted Date Resolved Date OA (osteoarthritis) of knee 06/04/201706/2017 Chronic pain of right knee 05/20/201707/04 Primary osteoarthritis of left knee 05/10/2017 06/05/2017 Overview: Added automatically from request for surgery [id number] Abdominal pain 11/01/2016 05/20/2017 Cystitis 11/01/2016 05/20/2017 [...] of this encounter (statuses as of 05/13/2022) [facility] History of Past illness Narrative* Problem Noted Date Resolved Date OA (osteoarthritis) of knee 06/04/201706/2017 Chronic pain of right knee 05/20/201707/04 Primary osteoarthritis of left knee 05/10/2017 06/05/2017 Overview: Added automatically from request for surgery [id number] Abdominal pain 11/01/2016 05/20/2017 Cystitis 11/01/2016 05/20/2017 [...] of this encounter (statuses as of 05/20/2022) [facility] History of Past illness Narrative* Problem Noted Date Resolved Date OA (osteoarthritis) of knee 06/04/2017 04/0 06/2017 Chronic pain of right knee 05/20/201707/04 Primary osteoarthritis of left knee 05/10/2017 06/05/2017 Overview: Added automatically from request for surgery [id number] Abdominal pain 11/01/2016 05/20/2017 Cystitis 11/01/2016 05/20/2017 [...] of this encounter (statuses as of 05/22/2022) [facility] History of Past illness Narrative* Problem Noted Date Resolved Date OA (osteoarthritis) of knee 06/04/2017 04/0 06/2017 Chronic pain of right knee 05/20/201707/04 Primary osteoarthritis of left knee 05/10/2017 06/05/2017 Overview: Added automatically from request for surgery [id number] Abdominal pain 11/01/2016 05/20/2017 Cystitis 11/01/2016 05/20/2017 [...] of this encounter (statuses as of 05/23/2022) [facility] History of Past illness Narrative* Problem Noted Date Resolved Date OA (osteoarthritis) of knee 06/04/20170 06/2017 Chronic pain of right knee 05/20/201707/04 Primary osteoarthritis of left knee 05/10/2017 06/05/2017 Overview: Added automatically from request for surgery [id number] Abdominal pain 11/01/2016 05/20/2017 Cystitis 11/01/2016 05/20/2017 [...] of this encounter (statuses as of 06/11/2022) [facility] History of Past illness Narrative* Problem Noted Date Resolved Date OA (osteoarthritis) of knee 06/04/2017 040 06/2017 Chronic pain of right knee 05/20/201707/04 Primary osteoarthritis of left knee 05/10/2017 06/05/2017 Overview: Added automatically from request for surgery [id number] Abdominal pain 11/01/2016 05/20/2017 Cystitis 11/01/2016 05/20/2017 [...] of this encounter (statuses as of 06/16/2022) [facility] History of Past illness Narrative* Problem Noted Date Resolved Date OA (osteoarthritis) of knee 06/04/20170 06/2017 Chronic pain of right knee 05/20/201707/04 Primary osteoarthritis of left knee 05/10/2017 06/05/2017 Overview: Added automatically from request for surgery [id number] Abdominal pain 11/01/2016 05/20/2017 Cystitis 11/01/2016 05/20/2017 [...] of this encounter (statuses as of 06/22/2022) [facility] History of Past illness Narrative* Problem Noted Date Resolved Date OA (osteoarthritis) of knee 06/04/201706/2017 Chronic pain of right knee 05/20/201707/04 Primary osteoarthritis of left knee 05/10/2017 06/05/2017 Overview: Added automatically from request for surgery [id number] Abdominal pain 11/01/2016 05/20/2017 Cystitis 11/01/2016 05/20/2017 [...] of this encounter (statuses as of 06/28/2022) [facility] History of Past illness Narrative* Problem Noted Date Resolved Date OA (osteoarthritis) of knee 06/04/201706/2017 Chronic pain of right knee 05/20/201707/04 Primary osteoarthritis of left knee 05/10/2017 06/05/2017 Overview: Added automatically from request for surgery [id number] Abdominal pain 11/01/2016 05/20/2017 Cystitis 11/01/2016 05/20/2017 [...] of this encounter (statuses as of 07/03/2022) [facility] History of Past illness Narrative* Problem Noted Date Resolved Date OA (osteoarthritis) of knee 06/04/201706/2017 Chronic pain of right knee 05/20/201707/04 Primary osteoarthritis of left knee 05/10/2017 06/05/2017 Overview: Added automatically from request for surgery [id number] Abdominal pain 11/01/2016 05/20/2017 Cystitis 11/01/2016 05/20/2017 [...] of this encounter (statuses as of 07/11/2022) [facility] History of Past illness Narrative* Problem Noted Date Resolved Date OA (osteoarthritis) of knee 06/04/201706/2017 Chronic pain of right knee 05/20/201707/04 Primary osteoarthritis of left knee 05/10/2017 06/05/2017 Overview: Added automatically from request for surgery [id number] Abdominal pain 11/01/2016 05/20/2017 Cystitis 11/01/2016 05/20/2017 [...] of this encounter (statuses as of 07/14/2022) [facility] History of Past illness Narrative* Problem Noted Date Resolved Date OA (osteoarthritis) of knee 06/04/2017 04/06/2017 Chronic pain of right knee 05/20/201707/04 Primary osteoarthritis of left knee 05/10/2017 06/05/2017 Overview: Added automatically from request for surgery [id number] Abdominal pain 11/01/2016 05/20/2017 Cystitis 11/01/2016 05/20/2017 [...] of this encounter (statuses as of 08/01/2022) [facility] History of Past illness Narrative* Problem Noted Date Resolved Date OA (osteoarthritis) of knee 06/04/20170 06/2017 Chronic pain of right knee 05/20/201707/04 Primary osteoarthritis of left knee 05/10/2017 06/05/2017 Overview: Added automatically from request for surgery [id number] Abdominal pain 11/01/2016 05/20/2017 Cystitis 11/01/2016 05/20/2017 [...] of this encounter (statuses as of 08/16/2022) [facility] History of Past illness Narrative* Problem Noted Date Resolved Date OA (osteoarthritis) of knee 06/04/20170 06/2017 Chronic pain of right knee 05/20/201707/04 Primary osteoarthritis of left knee 05/10/2017 06/05/2017 Overview: Added automatically from request for surgery [id number] Abdominal pain 11/01/2016 05/20/2017 Cystitis 11/01/2016 05/20/2017 [...] of this encounter (statuses as of 08/31/2022) [facility] History of Past illness Narrative* Problem Noted Date Resolved Date OA (osteoarthritis) of knee 06/04/2017 04/0 06/2017 Chronic pain of right knee 05/20/201707/04 Primary osteoarthritis of left knee 05/10/2017 06/05/2017 Overview: Added automatically from request for surgery [id number] Abdominal pain 11/01/2016 05/20/2017 Cystitis 11/01/2016 05/20/2017 [...] of this encounter (statuses as of 09/05/2022) [facility] History of Past illness Narrative* Problem Noted Date Diagnosed Date Resolved Date OA (osteoarthritis) of knee 06/04/2017 06/05/2017 Chronic pain of right knee 05/20/2017 0 07/04/2017 Primary osteoarthritis of left knee 05/10/2017 06/05/2017 Overview: Added automatically from request for surgery [id number] Abdominal pain 11/01/2016 05/20/2017 Cystitis 11/01/2016 05/20/2017 [...] of this encounter (statuses as of 09/20/2022) [facility] History of Past illness Narrative* Problem Noted Date Diagnosed Date Resolved Date OA (osteoarthritis) of knee 06/04/2017 06/05/2017 Chronic pain of right knee 05/20/2017 0 07/04/2017 Primary osteoarthritis of left knee 05/10/2017 06/05/2017 Overview: Added automatically from request for surgery [id number] Abdominal pain 11/01/2016 05/20/2017 Cystitis 11/01/2016 05/20/2017 [...] of this encounter (statuses as of 09/20/2022) [facility] History of Past illness Narrative* Problem Noted Date Diagnosed Date Resolved Date OA (osteoarthritis) of knee 06/04/2017 06/05/2017 Chronic pain of right knee 05/20/2017 0 07/04/2017 Primary osteoarthritis of left knee 05/10/2017 06/05/2017 Overview: Added automatically from request for surgery [id number] Abdominal pain 11/01/2016 05/20/2017 Cystitis 11/01/2016 05/20/2017 [...] of this encounter (statuses as of 09/28/2022) [facility] History of Past illness Narrative* Problem Noted Date Diagnosed Date Resolved Date OA (osteoarthritis) of knee 06/04/2017 06/05/2017 Chronic pain of right knee 05/20/2017 0 07/04/2017 Primary osteoarthritis of left knee 05/10/2017 06/05/2017 Overview: Added automatically from request for surgery [id number] Abdominal pain 11/01/2016 05/20/2017 Cystitis 11/01/2016 05/20/2017 [...] of this encounter (statuses as of 10/06/2022) [facility] History of Past illness Narrative* Problem Noted Date Diagnosed Date Resolved Date OA (osteoarthritis) of knee 06/04/2017 06/05/2017 Chronic pain of right knee 05/20/2017 0 07/04/2017 Primary osteoarthritis of left knee 05/10/2017 06/05/2017 Overview: Added automatically from request for surgery [id number] Abdominal pain 11/01/2016 05/20/2017 Cystitis 11/01/2016 05/20/2017 [...] of this encounter (statuses as of 10/12/2022) [facility] History of Past illness Narrative* Problem Noted Date Diagnosed Date Resolved Date OA (osteoarthritis) of knee 06/04/2017 06/05/2017 Chronic pain of right knee 05/20/2017 0 07/04/2017 Primary osteoarthritis of left knee 05/10/2017 06/05/2017 Overview: Added automatically from request for surgery [id number] Abdominal pain 11/01/2016 05/20/2017 Cystitis 11/01/2016 05/20/2017 [...] of this encounter (statuses as of 10/13/2022) [facility] History of Past illness Narrative* Problem Noted Date Diagnosed Date Resolved Date OA (osteoarthritis) of knee 06/04/2017 06/05/2017 Chronic pain of right knee 05/20/2017 0 07/04/2017 Primary osteoarthritis of left knee 05/10/2017 06/05/2017 Overview: Added automatically from request for surgery [id number] Abdominal pain 11/01/2016 05/20/2017 Cystitis 11/01/2016 05/20/2017 [...] of this encounter (statuses as of 11/08/2022) [facility] History of Past illness Narrative* Problem Noted Date Diagnosed Date Resolved Date OA (osteoarthritis) of knee 06/04/2017 06/05/2017 Chronic pain of right knee 05/20/2017 0 07/04/2017 Primary osteoarthritis of left knee 05/10/2017 06/05/2017 Overview: Added automatically from request for surgery [id number] Abdominal pain 11/01/2016 05/20/2017 Cystitis 11/01/2016 05/20/2017 [...] of this encounter (statuses as of 11/14/2022) [facility] History of Past illness Narrative* Problem Noted Date Diagnosed Date Resolved Date OA (osteoarthritis) of knee 06/04/2017 06/05/2017 Chronic pain of right knee 05/20/2017 0 07/04/2017 Primary osteoarthritis of left knee 05/10/2017 06/05/2017 Overview: Added automatically from request for surgery [id number] Abdominal pain 11/01/2016 05/20/2017 Cystitis 11/01/2016 05/20/2017 [...] of this encounter (statuses as of 11/14/2022) [facility] History of Past illness Narrative* Problem Noted Date Diagnosed Date Resolved Date OA (osteoarthritis) of knee 06/04/2017 06/05/2017 Chronic pain of right knee 05/20/2017 0 07/04/2017 Primary osteoarthritis of left knee 05/10/2017 06/05/2017 Overview: Added automatically from request for surgery [id number] Abdominal pain 11/01/2016 05/20/2017 Cystitis 11/01/2016 05/20/2017 [...] of this encounter (statuses as of 11/15/2022) [facility] History of Past illness Narrative* Problem Noted Date Diagnosed Date Resolved Date OA (osteoarthritis) of knee 06/04/2017 06/05/2017 Chronic pain of right knee 05/20/2017 0 07/04/2017 Primary osteoarthritis of left knee 05/10/2017 06/05/2017 Overview: Added automatically from request for surgery [id number] Abdominal pain 11/01/2016 05/20/2017 Cystitis 11/01/2016 05/20/2017 [...] of this encounter (statuses as of 11/20/2022) [facility] of Past illness Narrative* Problem Noted Date Diagnosed Date Resolved Date OA (osteoarthritis) of knee 06/04/2017 06/05/2017 Chronic pain of right knee 05/20/2017 0 07/04/2017 Primary osteoarthritis of left knee 05/10/2017 06/05/2017 Overview: Added automatically from request for surgery [id number] Abdominal pain 11/01/2016 05/20/2017 Cystitis 11/01/2016 05/20/2017 [...] of this encounter (statuses as of 11/23/2022) [facility] Past illness Narrative* Problem Noted Date Diagnosed Date Resolved Date OA (osteoarthritis) of knee 06/04/2017 06/05/2017 Chronic pain of right knee 05/20/2017 0 07/04/2017 Primary osteoarthritis of left knee 05/10/2017 06/05/2017 Overview: Added automatically from request for surgery [id number] Abdominal pain 11/01/2016 05/20/2017 Cystitis 11/01/2016 05/20/2017 [...] of this encounter (statuses as of 11/26/2022) [facility] History of Past illness Narrative* Problem Noted Date Diagnosed Date Resolved Date OA (osteoarthritis) of knee 06/04/2017 06/05/2017 Chronic pain of right knee 05/20/2017 0 07/04/2017 Primary osteoarthritis of left knee 05/10/2017 06/05/2017 Overview: Added automatically from request for surgery [id number] Abdominal pain 11/01/2016 05/20/2017 Cystitis 11/01/2016 05/20/2017 [...] of this encounter (statuses as of 12/11/2022) [facility] History of Past illness Narrative* Problem Noted Date Diagnosed Date Resolved Date OA (osteoarthritis) of knee 06/04/2017 06/05/2017 Chronic pain of right knee 05/20/2017 0 07/04/2017 Primary osteoarthritis of left knee 05/10/2017 06/05/2017 Overview: Added automatically from request for surgery [id number] Abdominal pain 11/01/2016 05/20/2017 Cystitis 11/01/2016 05/20/2017 [...] of this encounter (statuses as of 01/02/2023) [facility] History of Past illness Narrative* Problem Noted Date Diagnosed Date Resolved Date OA (osteoarthritis) of knee 06/04/2017 06/05/2017 Chronic pain of right knee 05/20/2017 0 07/04/2017 Primary osteoarthritis of left knee 05/10/2017 06/05/2017 Overview: Added automatically from request for surgery [id number] Abdominal pain 11/01/2016 05/20/2017 Cystitis 11/01/2016 05/20/2017 [...] of this encounter (statuses as of 01/06/2023) [facility] History of Past illness Narrative* Problem Noted Date Diagnosed Date Resolved Date OA (osteoarthritis) of knee 06/04/2017 06/05/2017 Chronic pain of right knee 05/20/2017 0 07/04/2017 Primary osteoarthritis of left knee 05/10/2017 06/05/2017 Overview: Added automatically from request for surgery [id number] Abdominal pain 11/01/2016 05/20/2017 Cystitis 11/01/2016 05/20/2017 [...] of this encounter (statuses as of 01/06/2023) [facility] History of Past illness Narrative* Problem Noted Date Diagnosed Date Resolved Date OA (osteoarthritis) of knee 06/04/2017 06/05/2017 Chronic pain of right knee 05/20/2017 0 07/04/2017 Primary osteoarthritis of left knee 05/10/2017 06/05/2017 Overview: Added automatically from request for surgery [id number] Abdominal pain 11/01/2016 05/20/2017 Cystitis 11/01/2016 05/20/2017 [...] of this encounter (statuses as of 01/06/2023) [facility] History of Past illness Narrative* Problem Noted Date Diagnosed Date Resolved Date OA (osteoarthritis) of knee 06/04/2017 06/05/2017 Chronic pain of right knee 05/20/2017 0 07/04/2017 Primary osteoarthritis of left knee 05/10/2017 06/05/2017 Overview: Added automatically from request for surgery [id number] Abdominal pain 11/01/2016 05/20/2017 Cystitis 11/01/2016 05/20/2017 [...] of this encounter (statuses as of 01/06/2023) [facility] History of Past illness Narrative* Problem Noted Date Diagnosed Date Resolved Date OA (osteoarthritis) of knee 06/04/2017 06/05/2017 Chronic pain of right knee 05/20/2017 0 07/04/2017 Primary osteoarthritis of left knee 05/10/2017 06/05/2017 Overview: Added automatically from request for surgery [id number] Abdominal pain 11/01/2016 05/20/2017 Cystitis 11/01/2016 05/20/2017 [...] of this encounter (statuses as of 01/10/2023) [facility] History of Past illness Narrative* Problem Noted Date Diagnosed Date Resolved Date OA (osteoarthritis) of knee 06/04/2017 06/05/2017 Chronic pain of right knee 05/20/2017 0 07/04/2017 Primary osteoarthritis of left knee 05/10/2017 06/05/2017 Overview: Added automatically from request for surgery [id number] Abdominal pain 11/01/2016 05/20/2017 Cystitis 11/01/2016 05/20/2017 [...] of this encounter (statuses as of 01/11/2023) [facility] History of Past illness Narrative* Problem Noted Date Diagnosed Date Resolved Date OA (osteoarthritis) of knee 06/04/2017 06/05/2017 Chronic pain of right knee 05/20/2017 0 07/04/2017 Primary osteoarthritis of left knee 05/10/2017 06/05/2017 Overview: Added automatically from request for surgery [id number] Abdominal pain 11/01/2016 05/20/2017 Cystitis 11/01/2016 05/20/2017 [...] of this encounter (statuses as of 01/15/2023) [facility] History of Past illness Narrative* Problem Noted Date Diagnosed Date Resolved Date OA (osteoarthritis) of knee 06/04/2017 06/05/2017 Chronic pain of right knee 05/20/2017 0 07/04/2017 Primary osteoarthritis of left knee 05/10/2017 06/05/2017 Overview: Added automatically from request for surgery [id number] Abdominal pain 11/01/2016 05/20/2017 Cystitis 11/01/2016 05/20/2017 [...] of this encounter (statuses as of 01/15/2023) [facility] History of Past illness Narrative* Problem Noted Date Diagnosed Date Resolved Date OA (osteoarthritis) of knee 06/04/2017 06/05/2017 Chronic pain of right knee 05/20/2017 0 07/04/2017 Primary osteoarthritis of left knee 05/10/2017 06/05/2017 Overview: Added automatically from request for surgery [id number] Abdominal pain 11/01/2016 05/20/2017 Cystitis 11/01/2016 05/20/2017 [...] of this encounter (statuses as of 01/17/2023) [facility] History of Past illness Narrative* Problem Noted Date Diagnosed Date Resolved Date OA (osteoarthritis) of knee 06/04/2017 06/05/2017 Chronic pain of right knee 05/20/2017 0 07/04/2017 Primary osteoarthritis of left knee 05/10/2017 06/05/2017 Overview: Added automatically from request for surgery [id number] Abdominal pain 11/01/2016 05/20/2017 Cystitis 11/01/2016 05/20/2017 [...] of this encounter (statuses as of 01/20/2023) [facility] History of Past illness Narrative* Problem Noted Date Diagnosed Date Resolved Date OA (osteoarthritis) of knee 06/04/2017 06/05/2017 Chronic pain of right knee 05/20/2017 0 07/04/2017 Primary osteoarthritis of left knee 05/10/2017 06/05/2017 Overview: Added automatically from request for surgery [id number] Abdominal pain 11/01/2016 05/20/2017 Cystitis 11/01/2016 05/20/2017 [...] of this encounter (statuses as of 01/21/2023) [facility] History of Past illness Narrative* Problem Noted Date Diagnosed Date Resolved Date OA (osteoarthritis) of knee 06/04/2017 06/05/2017 Chronic pain of right knee 05/20/2017 0 07/04/2017 Primary osteoarthritis of left knee 05/10/2017 06/05/2017 Overview: Added automatically from request for surgery [id number] Abdominal pain 11/01/2016 05/20/2017 Cystitis 11/01/2016 05/20/2017 [...] of this encounter (statuses as of 01/23/2023) [facility] History of Past illness Narrative* Problem Noted Date Diagnosed Date Resolved Date OA (osteoarthritis) of knee 06/04/2017 06/05/2017 Chronic pain of right knee 05/20/2017 0 07/04/2017 Primary osteoarthritis of left knee 05/10/2017 06/05/2017 Overview: Added automatically from request for surgery [id number] Abdominal pain 11/01/2016 05/20/2017 Cystitis 11/01/2016 05/20/2017 [...] of this encounter (statuses as of 01/29/2023) [facility] History of Past illness Narrative* Problem Noted Date Diagnosed Date Resolved Date OA (osteoarthritis) of knee 06/04/2017 06/05/2017 Chronic pain of right knee 05/20/2017 0 07/04/2017 Primary osteoarthritis of left knee 05/10/2017 06/05/2017 Overview: Added automatically from request for surgery [id number] Abdominal pain 11/01/2016 05/20/2017 Cystitis 11/01/2016 05/20/2017 [...] of this encounter (statuses as of 02/06/2023) [facility] History of Past illness Narrative* Problem Noted Date Diagnosed Date Resolved Date OA (osteoarthritis) of knee 06/04/2017 06/05/2017 Chronic pain of right knee 05/20/2017 0 07/04/2017 Primary osteoarthritis of left knee 05/10/2017 06/05/2017 Overview: Added automatically from request for surgery [id number] Abdominal pain 11/01/2016 05/20/2017 Cystitis 11/01/2016 05/20/2017 [...] of this encounter (statuses as of 02/06/2023) [facility] History of Past illness Narrative* Problem Noted Date Diagnosed Date Resolved Date OA (osteoarthritis) of knee 06/04/2017 06/05/2017 Chronic pain of right knee 05/20/2017 0 07/04/2017 Primary osteoarthritis of left knee 05/10/2017 06/05/2017 Overview: Added automatically from request for surgery [id number] Abdominal pain 11/01/2016 05/20/2017 Cystitis 11/01/2016 05/20/2017 [...] of this encounter (statuses as of 02/14/2023) [facility] History of Past illness Narrative* Problem Noted Date Diagnosed Date Resolved Date OA (osteoarthritis) of knee 06/04/2017 06/05/2017 Chronic pain of right knee 05/20/2017 0 07/04/2017 Primary osteoarthritis of left knee 05/10/2017 06/05/2017 Overview: Added automatically from request for surgery [id number] Abdominal pain 11/01/2016 05/20/2017 Cystitis 11/01/2016 05/20/2017 [...] of this encounter (statuses as of 02/15/2023) [facility] History of Past illness Narrative* Problem Noted Date Diagnosed Date Resolved Date OA (osteoarthritis) of knee 06/04/2017 06/05/2017 Chronic pain of right knee 05/20/2017 0 07/04/2017 Primary osteoarthritis of left knee 05/10/2017 06/05/2017 Overview: Added automatically from request for surgery [id number] Abdominal pain 11/01/2016 05/20/2017 Cystitis 11/01/2016 05/20/2017 [...] of this encounter (statuses as of 04/18/2023) [facility] History of Past illness Narrative* Problem Noted Date Diagnosed Date Resolved Date OA (osteoarthritis) of knee 06/04/2017 06/05/2017 Chronic pain of right knee 05/20/2017 0 07/04/2017 Primary osteoarthritis of left knee 05/10/2017 06/05/2017 Overview: Added automatically from request for surgery [id number] Abdominal pain 11/01/2016 05/20/2017 Cystitis 11/01/2016 05/20/2017 [...] of this encounter (statuses as of 05/06/2023) [facility] History of Past illness Narrative* Problem Noted Date Diagnosed Date Resolved Date OA (osteoarthritis) of knee 06/04/2017 06/05/2017 Chronic pain of right knee 05/20/2017 0 07/04/2017 Primary osteoarthritis of left knee 05/10/2017 06/05/2017 Overview: Added automatically from request for surgery [id number] Abdominal pain 11/01/2016 05/20/2017 Cystitis 11/01/2016 05/20/2017 [...] of this encounter (statuses as of 05/08/2023) [facility] History of Past illness Narrative* Problem Noted Date Diagnosed Date Resolved Date OA (osteoarthritis) of knee 06/04/2017 06/05/2017 Chronic pain of right knee 05/20/2017 0 07/04/2017 Primary osteoarthritis of left knee 05/10/2017 06/05/2017 Overview: Added automatically from request for surgery [id number] Abdominal pain 11/01/2016 05/20/2017 Cystitis 11/01/2016 05/20/2017 [...] of this encounter (statuses as of 05/09/2023) [facility] History of Past illness Narrative* Problem Noted Date Diagnosed Date Resolved Date OA (osteoarthritis) of knee 06/04/2017 06/05/2017 Chronic pain of right knee 05/20/2017 0 07/04/2017 Primary osteoarthritis of left knee 05/10/2017 06/05/2017 Overview: Added automatically from request for surgery [id number] Abdominal pain 11/01/2016 05/20/2017 Cystitis 11/01/2016 05/20/2017 [...] of this encounter (statuses as of 05/15/2023) [facility] History of Past illness Narrative* Problem Noted Date Diagnosed Date Resolved Date OA (osteoarthritis) of knee 06/04/2017 06/05/2017 Chronic pain of right knee 05/20/2017 0 07/04/2017 Primary osteoarthritis of left knee 05/10/2017 06/05/2017 Overview: Added automatically from request for surgery [id number] Abdominal pain 11/01/2016 05/20/2017 Cystitis 11/01/2016 05/20/2017 [...] of this encounter (statuses as of 05/23/2023) [facility] History of Past illness Narrative* Problem Noted Date Diagnosed Date Resolved Date OA (osteoarthritis) of knee 06/04/2017 06/05/2017 Chronic pain of right knee 05/20/2017 0 07/04/2017 Primary osteoarthritis of left knee 05/10/2017 06/05/2017 Overview: Added automatically from request for surgery [id number] Abdominal pain 11/01/2016 05/20/2017 Cystitis 11/01/2016 05/20/2017 [...] of this encounter (statuses as of 05/24/2023) [facility] History of Past illness Narrative* Problem Noted Date Diagnosed Date Resolved Date OA (osteoarthritis) of knee 06/04/2017 06/05/2017 Chronic pain of right knee 05/20/2017 0 07/04/2017 Primary osteoarthritis of left knee 05/10/2017 06/05/2017 Overview: Added automatically from request for surgery [id number] Abdominal pain 11/01/2016 05/20/2017 Cystitis 11/01/2016 05/20/2017 [...] of this encounter (statuses as of 06/04/2023) [facility] History of Past illness Narrative* Problem Noted Date Diagnosed Date Resolved Date OA (osteoarthritis) of knee 06/04/2017 06/05/2017 Chronic pain of right knee 05/20/2017 0 07/04/2017 Primary osteoarthritis of left knee 05/10/2017 06/05/2017 Overview: Added automatically from request for surgery [id number] Abdominal pain 11/01/2016 05/20/2017 Cystitis 11/01/2016 05/20/2017 [...] of this encounter (statuses as of 06/08/2023) [facility] History of Past illness Narrative* Problem Noted Date Diagnosed Date Resolved Date OA (osteoarthritis) of knee 06/04/2017 06/05/2017 Chronic pain of right knee 05/20/2017 0 07/04/2017 Primary osteoarthritis of left knee 05/10/2017 06/05/2017 Overview: Added automatically from request for surgery [id number] Abdominal pain 11/01/2016 05/20/2017 Cystitis 11/01/2016 05/20/2017 [...] of this encounter (statuses as of 06/13/2023) [facility] No data available for this section [facility]* Diagnosis Muscle strain of chest wall, initial encounter- Primary [facility] Diagnosis Flank pain- Primary Abdominal pain, unspecified site [facility]* Diagnosis Microscopic hematuria- Primary [facility] noteNo assessment information availableWPro[facility] Phone: [facility]* Diagnosis Pain in both knees, unspecified chronicity- Primary [facility]* Diagnosis Neck pain- Primary Cervicalgia Hypertension, essential Unspecified essential hypertension IFG (impaired fasting glucose) Impaired fasting glucose Dyslipidemia Other and unspecified hyperlipidemia Inflammatory arthritis Unspecified inflammatory polyarthropathy Rib injury Sprain of ribs Osteoarthritis of spine with radiculopathy, cervical region DDD (degenerative disc disease), cervical Degeneration of cervical intervertebral disc [facility] Diagnosis Status post total left knee replacement- Primary Status post total right knee replacement Quadriceps weakness Muscle weakness (generalized) [facility] Diagnosis Pain in both knees, unspecified chronicity [facility] Diagnosis Inflammatory arthritis Unspecified inflammatory polyarthropathy [facility] Diagnosis Foot pain, left- Primary Pain in limb Erythema of foot Unspecified erythematous condition [facility] Diagnosis Foot pain, left- Primary Pain in limb Erythema of foot Unspecified erythematous condition Urinary frequency Sensation of fullness in left ear Other disorders of ear Psoriatic arthritis (HCC) Psoriatic arthropathy 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 Seasonal allergies Allergic rhinitis, cause unspecified Scalp lump Swelling, mass, or lump in head and neck [facility]* Diagnosis Repetitive stress injury- Primary Unspecified site of sprain and strain Foot pain, left Pain in limb Erythema of foot Unspecified erythematous condition [facility] Diagnosis Repetitive stress injury Unspecified site of sprain and strain [facility] Diagnosis Injury of left hand, initial encounter- Primary documented in this encounter [facility]* Diagnosis Status post total left knee replacement- Primary Status post total right knee replacement [facility]* Diagnosis Bee sting, accidental or unintentional, initial encounter [facility]* Diagnosis Diarrhea, unspecified type- Primary Mild headache Headache [facility] Diagnosis Epigastric abdominal pain Abdominal pain, epigastric [facility] Diagnosis Prolapse of intestine- Primary Other specified disorder of intestines Pelvic floor dysfunction in female Urinary incontinence, unspecified type [facility] Diagnosis Prolapse of intestine- Primary Other specified disorder of intestines Rectocele Enterocele Hernia of unspecified site of abdominal cavity without mention of obstruction or gangrene Urinary tract infection without hematuria, site unspecified Rectal prolapse [facility] Diagnosis Status post total left knee replacement- Primary Status post total right knee replacement [facility] Diagnosis Status post total left knee replacement Status post total right knee replacement [facility] Diagnosis Urinary frequency- Primary [facility] Diagnosis Prolapse of intestine- Primary Other specified disorder of intestines Urinary incontinence, unspecified type Pelvic floor dysfunction in female [facility] Diagnosis Urinary frequency- Primary Pelvic floor dysfunction in female Prolapse of intestine Other specified disorder of intestines Neck pain Cervicalgia Osteoarthritis of spine with radiculopathy, cervical region [facility] Diagnosis Prolapse of intestine- Primary Other specified disorder of intestines Urinary incontinence, unspecified type Pelvic floor dysfunction in female [facility] Diagnosis Prolapse of intestine- Primary Other specified disorder of intestines Urinary incontinence, unspecified type Pelvic floor dysfunction in female [facility] Diagnosis Urinary frequency- Primary [facility] Diagnosis Prolapse of intestine- Primary Other specified disorder of intestines Pelvic floor dysfunction in female Urinary frequency [facility] Diagnosis Rectocele- Primary Urinary frequency Frequent UTI Urinary tract infection, site not specified [facility] Diagnosis Urinary frequency- Primary Viral URI Acute upper respiratory infections of unspecified site [facility] Diagnosis Rectocele Enterocele Hernia of unspecified site of abdominal cavity without mention of obstruction or gangrene Rectal prolapse [facility] Diagnosis Dental infection- Primary Acute apical periodontitis of pulpal origin [facility] Diagnosis Rectal prolapse- Primary Rectocele Enterocele Hernia of unspecified site of abdominal cavity without mention of obstruction or gangrene [facility]* Diagnosis Screening for colon cancer- Primary Special screening for malignant neoplasms, colon documented [facility] this encounter [facility] Diagnosis Urinary incontinence, urge- Primary Urge incontinence Preoperative examination Preoperative examination, unspecified [facility] Diagnosis Urinary frequency- Primary Prolapse of intestine Other specified disorder of intestines Pelvic floor dysfunction in female Hypertension, essential Unspecified essential hypertension Dyslipidemia Other and unspecified hyperlipidemia [facility] Diagnosis Urinary frequency- Primary Pain in both lower extremities [facility]* Diagnosis Rectal prolapse- Primary [facility] Diagnosis Rectocele- Primary Other female genital prolapse Urinary frequency Vaginal vault prolapse Unspecified prolapse of vaginal huynh Cystocele, midline Urinary incontinence, urge Urge incontinence Overactive bladder Hypertonicity of bladder Rectal prolapse [facility] Diagnosis JOSHUA (generalized anxiety disorder)- Primary Generalized anxiety disorder Cough, persistent Cough Pain of right lower extremity Chronic obstructive pulmonary disease, unspecified COPD type (HCC) Psoriatic arthritis (HCC) Psoriatic arthropathy [facility]* Diagnosis Hypertension, essential Unspecified essential hypertension [facility]* Diagnosis Rash- Primary Rash and other nonspecific skin eruption Bug bite, initial encounter [facility] Diagnosis Nasal sore- Primary Other diseases of nasal cavity and sinuses JOSHUA (generalized anxiety disorder) Generalized anxiety disorder Cough, persistent Cough Short-term memory loss Memory loss Word finding difficulty Problems with communication (including speech) Rectal prolapse Chronic obstructive pulmonary disease, unspecified COPD type (HCC) Psoriatic arthritis (HCC) Psoriatic arthropathy [facility]* Diagnosis Bee sting, accidental or unintentional, initial encounter [facility] Diagnosis Acute cough- Primary Bee sting, accidental or unintentional, initial encounter [facility] Diagnosis Viral bronchitis- Primary Acute bronchitis Chronic obstructive pulmonary disease, unspecified COPD type (HCC) documented [facility]* Diagnosis Urinary frequency- Primary [facility] Diagnosis Recurrent UTI (urinary tract infection)- Primary Urinary tract infection, site not specified Osteopenia, senile Disorder of bone and cartilage, unspecified Chronic cough Cough Rales Abnormal chest sounds Psoriatic arthritis (HCC) Psoriatic arthropathy Chronic obstructive pulmonary disease, unspecified COPD type (HCC) Rectal prolapse [facility] Diagnosis Rectocele- Primary documented in this encounter [facility] note* Diagnosis Vaginal vault prolapse- Primary Unspecified prolapse of vaginal huynh Rectocele Cystocele, midline Urinary incontinence, urge Urge incontinence Overactive bladder Hypertonicity of bladder Rectal prolapse Preoperative examination Preoperative examination, unspecified documented in this encounter [facility]* Diagnosis 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 Unspecified prolapse of vaginal huynh Rectocele Cystocele, midline Urinary incontinence, urge Urge incontinence Overactive bladder Hypertonicity of bladder Rectal prolapse Preoperative examination Preoperative examination, unspecified [facility]* Diagnosis Chronic cough Cough Rales Abnormal chest sounds Vaginal vault prolapse Unspecified prolapse of vaginal huynh Rectocele Cystocele, midline Urinary incontinence, urge Urge incontinence Overactive bladder Hypertonicity of bladder Rectal prolapse Preoperative examination Preoperative examination, unspecified documented in this encounter [facility]* Diagnosis Osteopenia, senile Disorder of bone and cartilage, unspecified Vaginal vault prolapse Unspecified prolapse of vaginal huynh Rectocele Cystocele, midline Urinary incontinence, urge Urge incontinence Overactive bladder Hypertonicity of bladder Rectal prolapse Preoperative examination Preoperative examination, unspecified documented in this [facility]* Diagnosis Encounter for screening for malignant neoplasm of colon- Primary Special screening for malignant neoplasms, colon Screening for colon cancer Special screening for malignant neoplasms, colon Vaginal vault prolapse Unspecified prolapse of vaginal huynh Rectocele Cystocele, midline Urinary incontinence, urge Urge incontinence Overactive bladder Hypertonicity of bladder Rectal prolapse Preoperative examination Preoperative examination, unspecified [facility]* Diagnosis Short-term memory loss Memory loss Word finding difficulty Problems with communication (including speech) Vaginal vault prolapse Unspecified prolapse of vaginal huynh Rectocele Cystocele, midline Urinary incontinence, urge Urge incontinence Overactive bladder Hypertonicity of bladder Rectal prolapse Preoperative examination Preoperative examination, unspecified [facility]* Diagnosis Pain due to knee joint prosthesis, initial encounter ([facility])- Primary 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 Unspecified prolapse of vaginal huynh Rectocele Cystocele, midline Urinary incontinence, urge Urge incontinence Overactive bladder Hypertonicity of bladder Rectal prolapse Preoperative examination Preoperative examination, unspecified documented in this encounter [facility]* Diagnosis Pain due to knee joint prosthesis, subsequent encounter- Primary 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 Unspecified prolapse of vaginal huynh Rectocele Cystocele, midline Urinary incontinence, urge Urge incontinence Overactive bladder Hypertonicity of bladder Rectal prolapse Preoperative examination Preoperative examination, unspecified [facility]* Diagnosis Pancreas cyst- Primary Cyst and pseudocyst of pancreas Cystic mass of pancreas Abnormal MRI of abdomen Nonspecific (abnormal) findings on radiological and other examination of abdominal area, including retroperitoneum Vaginal vault prolapse Unspecified prolapse of vaginal huynh Rectocele Cystocele, midline Urinary incontinence, urge Urge incontinence Overactive bladder Hypertonicity of bladder Rectal prolapse Preoperative examination Preoperative examination, unspecified documented [facility]* Diagnosis Fall, subsequent encounter- Primary Urinary frequency Laceration of left eyebrow, subsequent encounter Vaginal vault prolapse Unspecified prolapse of vaginal huynh Rectocele Cystocele, midline Urinary incontinence, urge Urge incontinence Overactive bladder Hypertonicity of bladder Rectal prolapse Preoperative examination Preoperative examination, unspecified documented [facility]* Diagnosis Visit for suture removal- Primary Encounter for removal of sutures Vaginal vault prolapse Unspecified prolapse of vaginal huynh Rectocele Cystocele, midline Urinary incontinence, urge Urge incontinence Overactive bladder Hypertonicity of bladder Rectal prolapse Preoperative examination Preoperative examination, unspecified [facility] Diagnosis Rosacea Vaginal vault prolapse Unspecified prolapse of vaginal huynh Rectocele Cystocele, midline Urinary incontinence, urge Urge incontinence Overactive bladder Hypertonicity of bladder Rectal prolapse Preoperative examination Preoperative examination, unspecified documented in this encounter [facility]* Diagnosis Hypertension, essential- Primary Unspecified essential hypertension JOSHUA (generalized anxiety disorder) Generalized anxiety disorder Dementia without behavioral disturbance (HCC) Dementia, unspecified, without behavioral disturbance Rectal prolapse Short-term memory loss Memory loss Rectal prolapse documented in this encounter [facility] note* Diagnosis Elevated lipase- Primary Other nonspecific abnormal serum enzyme levels Bloating Flatulence, eructation, and gas pain Upper abdominal pain Abdominal pain, other specified site Nausea Nausea alone documented in this encounter [facility] note* Diagnosis Elevated lipase Other nonspecific abnormal serum enzyme levels Bloating Flatulence, eructation, and gas pain Upper abdominal pain Abdominal pain, other specified site Nausea Nausea alone documented in this encounter [facility]* Diagnosis Pancreas cyst Cyst and pseudocyst of pancreas Cystic mass of pancreas Abnormal MRI of abdomen Nonspecific (abnormal) findings on radiological and other examination of abdominal area, including retroperitoneum documented in this encounter [facility] note* Diagnosis Abdominal discomfort- Primary Abdominal pain, unspecified site Hypertension, essential Unspecified essential hypertension Dementia without behavioral disturbance (HCC) Dementia, unspecified, without behavioral disturbance Oral lesion Other and unspecified diseases of the oral soft tissues documented in this encounter [facility] note* Diagnosis Persistent cough- Primary Cough Acute cough Decreased lung sounds Abnormal chest sounds documented in this encounter [facility] note* Diagnosis UTI symptoms- Primary Other symptoms involving urinary system documented in this encounter [facility] note* Diagnosis JOSHUA (generalized anxiety disorder)- Primary Generalized anxiety disorder Stress Other psychological or physical stress, not elsewhere classified Abdominal discomfort Abdominal pain, unspecified site RUQ abdominal pain Abdominal pain, right upper quadrant documented in this encounter [facility] note* Diagnosis Dementia without behavioral disturbance (HCC)- Primary Dementia, unspecified, without behavioral disturbance JOSHUA (generalized anxiety disorder) Generalized anxiety disorder Abdominal discomfort Abdominal pain, unspecified site Hypertension, essential Unspecified essential hypertension documented in this encounter [facility] note* Diagnosis Pre-op evaluation- Primary Preoperative examination, unspecified Primary osteoarthritis of left knee Primary localized osteoarthrosis, lower leg Urinary frequency Hypertension, essential Unspecified essential hypertension Chronic obstructive pulmonary disease, unspecified COPD type ([facility]) Hyperlipidemia, mixed Mixed hyperlipidemia Irritable [...] without behavioral disturbance [facility]* Diagnosis Pre-op evaluation- Primary Preoperative examination, [...] to COVID-19 virus documented [facility] this [facility]* Diagnosis Pre-op evaluation- Primary Preoperative examination, [...] Unspecified essential hypertension [facility]* Diagnosis Pre-op evaluation- Primary Preoperative examination, [...] Abnormal chest sounds [facility] Diagnosis Pre-op evaluation- Primary Preoperative [...] pseudocyst of pancreas documented in this encounter [facility]* Diagnosis Pre-op evaluation- Primary Preoperative examination, [...] pain, unspecified chronicity documented in this encounter [facility]* Diagnosis Pre-op evaluation- Primary Preoperative examination, [...] replacement Acute cough documented in this encounter [facility]* Diagnosis Pre-op evaluation- Primary Preoperative examination, [...] right ankle- Primary [facility]* Diagnosis Pre-op evaluation- Primary Preoperative examination, [...] of right ankle documented in this encounter [facility] note* Diagnosis Pre-op evaluation- Primary Preoperative examination, [...] pain, unspecified site [facility] Diagnosis Pre-op evaluation- Primary Preoperative [...] Unspecified erythematous condition documented [facility]* Diagnosis Pre-op evaluation- Primary Preoperative examination, [...] joint, multiple sites documented [facility]* Diagnosis Pre-op evaluation- Primary Preoperative examination, [...] Post-COVID chronic cough [facility] Diagnosis Pre-op evaluation- Primary Preoperative [...] Psoriasis Other psoriasis [facility]* Diagnosis Pre-op evaluation- Primary Preoperative examination, [...] Dry cough Cough [facility]* Diagnosis Pre-op evaluation- Primary Preoperative examination, [...] and subcutaneous tissue [facility]* Diagnosis Pre-op evaluation- Primary Preoperative examination, [...] unintentional, initial encounter [facility]* Diagnosis Pre-op evaluation- Primary Preoperative examination, [...] nonspecific skin eruption [facility] Diagnosis Pre-op evaluation- Primary Preoperative [...] unintentional, initial encounter [facility] Diagnosis Pre-op evaluation- Primary Preoperative [...] heel, subsequent encounter [facility] Diagnosis Pre-op evaluation- Primary Preoperative [...] pain, unspecified site [facility] Diagnosis Pre-op evaluation- Primary Preoperative [...] oral soft tissues [facility] Diagnosis Pre-op evaluation- Primary Preoperative examination, [...] Generalized anxiety disorder [facility]* Diagnosis Pre-op evaluation- Primary Preoperative examination, [...] without behavioral disturbance [facility]* Diagnosis Pre-op evaluation- Primary Preoperative examination, [...] pain without sciatica [facility]* Diagnosis Pre-op evaluation- Primary Preoperative examination, [...] cough- Primary Cough documented [facility]* Diagnosis Pre-op evaluation- Primary Preoperative examination, [...] Primary Acute cough [facility]* Diagnosis Pre-op evaluation- Primary Preoperative examination, [...] Urinary frequency- Primary documented [facility] this [facility]* Diagnosis Pre-op evaluation- Primary Preoperative examination, [...] pain without sciatica documented in this encounter [facility]* Diagnosis Pre-op evaluation- Primary Preoperative examination, [...] Unspecified essential hypertension documented in this encounter [facility]* Diagnosis Pre-op evaluation- Primary Preoperative examination, [...] syndrome, initial encounter [facility]* Diagnosis Pre-op evaluation- Primary Preoperative examination, [...] thoracolumbar intervertebral disc [facility]* Diagnosis Pre-op evaluation- Primary Preoperative examination, [...] (HCC) Psoriatic arthropathy documented in this encounter [facility]* Diagnosis Pre-op evaluation- Primary Preoperative examination, [...] initial encounter- Primary documented in this encounter [facility] note* Diagnosis Pre-op evaluation- Primary Preoperative examination, [...] neurogenic claudication present documented in this encounter [facility] note* Diagnosis Pre-op evaluation- Primary Preoperative examination, [...] lower extremity pain documented in this encounter [facility] note* Diagnosis Pre-op evaluation- Primary Preoperative examination, [...] initial encounter- Primary documented in this encounter [facility] for referral (narrative)* Diagnostic Procedure Only (Routine) - Closed Specialty Diagnoses / Procedures Referred By Clary t Referred To Contact XR IMAGING Diagnoses Flank pain Procedures XR THORACIC LIMITED 2V AP/LAT RADEX SPINE THORACIC 2 VIEWS Charissa Jauregui, SITE IDENTIFICATION SPECIALIST.BACKWINDER [address] [place] [address] Xr Imaging Referral ID Status Reason Start Date Expiration Date V isits Requested Visits Authorized [id number] Closed Auto-Generate d Referral 06/09/2021 07/09/2022 1 1 * Diagnostic Procedure Only (Routine) - Closed Specialty Diagnoses / Procedures Referred By Contac t Referred To Contact XR IMAGING Diagnoses Flank pain Procedures XR RIBS/CHEST 3V AP RIB/OBLS/CXR LEFT RADEX RIBS UNI W/POSTEROANT CH MINIMUM 3 VIEWS Charissa Jauregui APRN.BACKWINDER [address] [address] Xr Imaging Referral ID Status Reason Start Date Expiration Date V isits Requested Visits Authorized [id number] Closed Auto-Generate d Referral 06/09/2021 07/09/2022 1 1 [facility] for referral (narrative)* Diagnostic Procedure Only (Routine) - Pending Review Specialty Diagnoses / Procedures Referred By Contac t Referred To Contact XR IMAGING Diagnoses Pain in both knees, unspecified chronicity Procedures XR KNEE POST OP 3V AP/LAT/MERCHANT BILATERAL RADIOLOGIC EXAMINATION KNEE 3 VIEWS Glenna Bhandari PA-C [address] [place] [address] Xr Imaging Referral ID Status Reason Start Date Expiration Date Visits Requested Visits Authorized [id number] Pending Review Auto-Generat ed Referral 06/23/2021 07/23/2022 1 1 [facility] for referral (narrative)* Diagnostic Procedure Only (Routine) - Closed Specialty Diagnoses / Procedures Referred By Contac t Referred To Contact XR IMAGING Diagnoses Pain in both knees, unspecified chronicity Procedures XR KNEE POST OP 3V AP/LAT/MERCHANT BILATERAL RADIOLOGIC EXAMINATION KNEE 3 VIEWS Glenna Bhandari PA-C [address] [place] [address] Xr Imaging Referral ID Status Reason Start Date Expiration Date V isits Requested Visits Authorized [id number] Closed Auto-Generate d Referral 06/23/2021 07/23/2022 1 1 [facility] for referral (narrative)* Diagnostic Procedure Only (Routine) - Closed Specialty Diagnoses / Procedures Referred By Contac t Referred To Contact XR IMAGING Diagnoses Foot pain, left Erythema of foot Procedures XR FOOT GENERAL 3V AP/LAT/OBL LEFT RADEX FOOT COMPLETE MINIMUM 3 VIEWS Angeline Monterroso APRN.CNP [address] [place] [address] Xr Imaging Referral ID Status Reason Start Date Expiration Date V isits Requested Visits Authorized [id number] Closed Auto-Generate d Referral 07/20/2021 08/19/2022 1 1 [facility] for referral (narrative)* Diagnostic Procedure Only (Routine) - Closed Specialty Diagnoses / Procedures Referred By Contac t Referred To Contact XR IMAGING Diagnoses Repetitive stress injury Procedures XR FOOT GENERAL 3V AP/LAT/OBL LEFT RADEX FOOT COMPLETE MINIMUM 3 [place] [address] [place] [address] Xr Imaging Referral ID Status Reason Start Date Expiration Date V isits Requested Visits Authorized [id number] Closed Auto-Generate d Referral 08/02/2021 09/01/2022 1 1 [facility] for referral (narrative)* Diagnostic Procedure Only (Routine) - Closed Specialty Diagnoses / Procedures Referred By Contac t Referred To Contact XR IMAGING Diagnoses Repetitive stress injury Procedures XR FOOT GENERAL 3V AP/LAT/OBL LEFT RADEX FOOT COMPLETE MINIMUM 3 VIEWS Margaret Bacon [address] [place] [address] Xr Imaging Referral ID Status Reason Start Date Expiration Date V isits Requested Visits Authorized [id number] Closed Auto-Generate d Referral 08/02/2021 09/01/2022 1 1 T [facility] for referral (narrative)* Diagnostic Procedure Only (Routine) - Closed Specialty Diagnoses / Procedures Referred By Contac t Referred To Contact XR IMAGING Diagnoses Status post total left knee replacement Status post total right knee replacement Procedures XR KNEE POST OP 3V AP/LAT/MERCHANT BILATERAL RADIOLOGIC EXAMINATION KNEE 3 VIEWS Michael Del Castillo PA-C [address] [place] [address] Xr Imaging Referral ID Status Reason Start Date Expiration Date V isits Requested Visits Authorized [id number] Closed Auto-Generate d Referral 12/22/2021 01/21/2023 1 1 [facility] for referral (narrative)* Diagnostic Procedure Only (Routine) - Closed Specialty Diagnoses / Procedures Referred By Contac t Referred To Contact XR IMAGING Diagnoses Status post total left knee replacement Status post total right knee replacement Procedures XR KNEE POST OP 3V AP/LAT/MERCHANT BILATERAL RADIOLOGIC EXAMINATION KNEE 3 VIEWS Michael Del Castillo PA-C [address] [place] [address] Xr Imaging Referral ID Status Reason Start Date Expiration Date V isits Requested Visits Authorized [id number] Closed Auto-Generate d Referral 12/22/2021 01/21/2023 1 1 [facility] for referral (narrative)* Diagnostic Procedure Only (Routine) - Closed Specialty Diagnoses / Procedures Referred By Contac t Referred To Contact XR IMAGING Diagnoses Rectocele Enterocele Rectal prolapse Procedures XR DEFECOGRAPHY RADIOLOGIC EXAM COLON SINGLE CONTRAST STUDY Yi Gonsalves, PARMJIT.BACKWINDER [address] [place] [address] Xr Imaging Referral ID Status Reason Start Date Expiration Date V isits Requested Visits Authorized [id number] Closed Auto-Generate d Referral 12/06/2021 01/05/2023 1 1 [facility] for referral (narrative)* Outpatient Procedure (Routine) - Authorized Specialty Diagnoses / Procedures Referred By Contac t Referred To Contact [facility] Diagnoses Screening for colon cancer Procedures COLONOSCOPY SCREENING COLONOSCOPY FLX DX W/COLLJ SPEC WHEN PFRMD Mellisa Villalobos DO [address] [id number] [place] [id number] Referral ID Status Reason Start Date Expiration Date Visits Requested Visits Authorized [id number] Authorized Auto-Generat ed Referral 04/16/2022 04/16/2023 1 1 [facility] for referral (narrative)* Outpatient Procedure (Routine) - Pending Review Specialty Diagnoses / Procedures Referred By Contac t Referred To Contact [facility] Diagnoses Urinary incontinence, urge Preoperative examination Procedures URODYNAMICS WHI COMPLX CYSTOMETRO W/VOID PRESS&URETHRAL PROFILE Nel Zayas MD [address] [id number] [facility] [address] [place], [place] [id number] Referral ID Status Reason Start Date Expiration Date Visits Requested Visits Authorized [id number] Pending Review Auto-Generat ed Referral 04/17/2022 04/17/2023 1 1 [facility] for referral (narrative)* Diagnostic Procedure Only (Routine) - Authorized Specialty Diagnoses / Procedures Referred By Contac t Referred To Contact CT IMAGING Diagnoses Chronic cough Rales Procedures CT CHEST WO IVCON DIAGNOSTIC COMPUTED TOMOGRAPHY THORAX W/O CNTRST Edenilson Nicholson L, DO [address] [place] [address] [place] [address] Referral ID Status Reason Start Date Expiration Date V isits Requested Visits Authorized [id number] Authorized 11/14/2022 12/29/2022 1 1 [facility] for referral (narrative)* Outpatient Procedure (Routine) - Pending Review Specialty Diagnoses / Procedures Referred By Contac t Referred To Contact [facility] Diagnoses Vaginal vault prolapse Rectocele Cystocele, midline Urinary incontinence, urge Overactive bladder Rectal prolapse Preoperative examination Procedures URODYNAMICS WHI COMPLX CYSTOMETRO W/VOID PRESS&URETHRAL PROFILE Nel Zayas MD [address] [id number] [place] [id number] Referral ID Status Reason Start Date Expiration Date Visits Requested Visits Authorized [id number] Pending Review Auto-Generat ed Referral 11/26/2022 11/26/2023 1 1 [facility] for referral (narrative)* Diagnostic Procedure Only (Routine) - Closed Specialty Diagnoses / Procedures Referred By Contac t Referred To Contact CT IMAGING Diagnoses Chronic cough Rales Procedures CT CHEST WO IVCON DIAGNOSTIC COMPUTED TOMOGRAPHY THORAX W/O CNTRST Edenilson Nicholson DO [address] [place] [address] Ct Imaging [facility] Referral ID Status Reason Start Date Expiration Date Visits Re quested Visits Authorized [id number] Closed 11/14/2022 12/29/2022 1 1 [facility] for referral (narrative)* Outpatient Procedure (Routine) - Closed Specialty Diagnoses / Procedures Referred By Contac t Referred To Contact [facility] Diagnoses Screening for colon cancer Procedures COLONOSCOPY SCREENING COLONOSCOPY FLX DX W/COLLJ SPEC WHEN PFRMD Mellisa Villalobos DO [address] [place] [address] [address] [place] [address] Referral ID Status Reason Start Date Expiration Date V isits Requested Visits Authorized [id number] Closed Auto-Generate d Referral 04/16/2022 04/16/2023 1 1 [facility] for referral (narrative)* Diagnostic Procedure Only (Urgent) - Closed Specialty Diagnoses / Procedures Referred By Contac t Referred To Contact US IMAGING Diagnoses Elevated lipase Bloating Upper abdominal pain Nausea Procedures US ABD RIGHT UPPER QUADRANT US ABDOMINAL REAL TIME W/IMAGE LIMITED Angeline Monterroso APRN.BACKWINDER [address] [place] [address] [place] [address] Referral ID Status Reason Start Date Expiration Date V isits Requested Visits Authorized [id number] Closed Auto-Generate d Referral 05/08/2023 06/06/2024 1 1 [facility] for referral (narrative)* Diagnostic Procedure Only (Urgent) - Closed Specialty Diagnoses / Procedures Referred By Contac t Referred To Contact US IMAGING Diagnoses Elevated lipase Bloating Upper abdominal pain Nausea Procedures US ABD RIGHT UPPER QUADRANT US ABDOMINAL REAL TIME W/IMAGE LIMITED Angeline Monterroso APRN.BACKWINDER [address] [place] [address] [place] [address] Referral ID Status Reason Start Date Expiration Date V isits Requested Visits Authorized [id number] Closed Auto-Generate d Referral 05/08/2023 06/06/2024 1 1 [facility] for referral (narrative)* Outpatient Procedure (Routine) - New Request Specialty Diagnoses / Procedures Referred By Contac t Referred To Contact [facility] Diagnoses Pancreatic cyst Procedures EGD - THERAPEUTIC, EUS, OR TUBE INTERVENTIONS EGD INTRMURAL US NEEDLE ASPIRATE/[place] [address] [place] [address] [facility] [address] [address] Referral ID Status Reason Start Date Expiration Date Visits Requested Visits Authorized [id number] New Request Auto-Generat ed Referral 11/13/2023 11/12/2024 1 1 [facility] for referral (narrative)* Diagnostic Procedure Only (Routine) - Closed Specialty Diagnoses / Procedures Referred By Contac t Referred To Contact XR IMAGING Diagnoses Left knee pain, unspecified chronicity Procedures XR KNEE POST OP 3V AP/LAT/MERCHANT LEFT RADIOLOGIC EXAMINATION KNEE 3 VIEWS Michael Del Castillo PA-C [address] [place] [address] [place] [address] Referral ID Status Reason Start Date Expiration Date V isits Requested Visits Authorized [id number] Closed Auto-Generate d Referral 01/10/2023 02/09/2024 1 1 [facility] for referral (narrative)* Diagnostic Procedure Only (Routine) - Closed Specialty Diagnoses / Procedures Referred By Contac t Referred To Contact XR IMAGING Diagnoses Pain in lateral portion of right ankle Procedures XR ANKLE GENERAL 3V AP/LAT/OBL RIGHT RADEX ANKLE COMPLETE MINIMUM 3 VIEWS Kinga Goldberg, SITE IDENTIFICATION SPECIALIST.BACKWINDER [address] [place] [address] [place] [address] Referral ID Status Reason Start Date Expiration Date V isits Requested Visits Authorized [id number] Closed Auto-Generate d Referral 11/25/2023 12/24/2024 1 1 [facility] for referral (narrative)* Diagnostic Procedure Only (Routine) - Closed Specialty Diagnoses / Procedures Referred By Contac t Referred To Contact XR IMAGING Diagnoses Flank pain Procedures XR THORACIC LIMITED 2V AP/LAT RADEX SPINE THORACIC 2 VIEWS Charissa Jauregui, SITE IDENTIFICATION SPECIALIST.BACKWINDER [address] [place] [address] [place] [address] Referral ID Status Reason Start Date Expiration Date V isits Requested Visits Authorized [id number] Closed Auto-Generate d Referral 06/09/2021 07/09/2022 1 1 * Diagnostic Procedure Only (Routine) - Closed Specialty Diagnoses / Procedures Referred By Contac t Referred To Contact XR IMAGING Diagnoses Flank pain Procedures XR RIBS/CHEST 3V AP RIB/OBLS/CXR LEFT RADEX RIBS UNI W/POSTEROANT CH MINIMUM 3 VIEWS Charissa Jauregui APRN.BACKWINDER [address] [place] [address] [place] [address] Referral ID Status Reason Start Date Expiration Date V isits Requested Visits Authorized [id number] Closed Auto-Generate d Referral 06/09/2021 07/09/2022 1 1 [facility] for referral (narrative)* Diagnostic Procedure Only (Routine) - Closed Specialty Diagnoses / Procedures Referred By Contac t Referred To Contact XR IMAGING Diagnoses Foot pain, left Erythema of foot Procedures XR FOOT GENERAL 3V AP/LAT/OBL LEFT RADEX FOOT COMPLETE MINIMUM 3 VIEWS Angeline Monterroso APRN.BACKWINDER [address] [place] [address] [place] [address] Referral ID Status Reason Start Date Expiration Date V isits Requested Visits Authorized [id number] Closed Auto-Generate d Referral 07/20/2021 08/19/2022 1 1 [facility] for referral (narrative)* Diagnostic Procedure Only (Routine) - Closed Specialty Diagnoses / Procedures Referred By Contac t Referred To Contact XR IMAGING Diagnoses Inflammatory arthritis Pain in joint, multiple sites Procedures XR HAND GENERAL 3V PA/LAT/OBL BILATERAL RADEX HAND MINIMUM 3 [place] [address] [place] [address] [place] [address] Referral ID Status Reason Start Date Expiration Date V isits Requested Visits Authorized [id number] Closed Auto-Generate d Referral 05/02/2021 06/01/2022 1 1 [facility] for referral (narrative)* Diagnostic Procedure Only (Routine) - Closed Specialty Diagnoses / Procedures Referred By Contac t Referred To Contact XR IMAGING Diagnoses Injury of left hip, initial encounter Hip pain Procedures XR HIP GENERAL 3V PELV/AP/LAT LEFT RADEX HIP UNILATERAL WITH PELVIS 2-3 VIEWS Angeline Monterroso APRN.CNP [address] [place] [address] [place] [address] Referral ID Status Reason Start Date Expiration Date V isits Requested Visits Authorized [id number] Closed Auto-Generate d Referral 04/10/2021 05/10/2022 1 1 [facility] for visit Narrative* Diagnostic Procedure Only (Routine) - Closed Specialty Diagnoses / Procedures Referred By Contac t Referred To Contact XR IMAGING Diagnoses Pain in both knees, unspecified chronicity Procedures XR KNEE POST OP 3V AP/LAT/MERCHANT BILATERAL RADIOLOGIC EXAMINATION KNEE 3 VIEWS Glenna Bhandari PA-C [address] [place] [address] X[facility] Referral ID Status Reason Start Date Expiration Date V isits Requested Visits Authorized [id number] Closed Auto-Generate d Referral 06/23/2021 07/23/2022 1 1 [facility] for visit Narrative* Diagnostic Procedure Only (Routine) - Closed Specialty Diagnoses / Procedures Referred By Contac t Referred To Contact XR IMAGING Diagnoses Repetitive stress injury Procedures XR FOOT GENERAL 3V AP/LAT/OBL LEFT RADEX FOOT COMPLETE MINIMUM 3 VIEWS Margaret Bacon [address] [place] [address] X[facility] Imaging Referral ID Status Reason Start Date Expiration Date V isits Requested Visits Authorized [id number] Closed Auto-Generate d Referral 08/02/2021 09/01/2022 1 1 [facility] for visit Narrative* Diagnostic Procedure Only (Routine) - Closed Specialty Diagnoses / Procedures Referred By Contac t Referred To Contact XR IMAGING Diagnoses Status post total left knee replacement Status post total right knee replacement Procedures XR KNEE POST OP 3V AP/LAT/MERCHANT BILATERAL RADIOLOGIC EXAMINATION KNEE 3 VIEWS Michael Del Castillo PA-C [address] [place] [address] X[facility] Referral ID Status Reason Start Date Expiration Date V isits Requested Visits Authorized [id number] Closed Auto-Generate d Referral 12/22/2021 01/21/2023 1 1 [facility] for visit Narrative* Outpatient Procedure (Routine) - Closed Specialty Diagnoses / Procedures Referred By Contac t Referred To Contact [facility] Diagnoses Screening for colon cancer Procedures COLONOSCOPY SCREENING COLONOSCOPY FLX DX W/COLLJ SPEC WHEN PFRMD Mellisa Villalobos DO [address] [place] [address] [facility] [address] [place] [address] Referral ID Status Reason Start Date Expiration Date V isits Requested Visits Authorized [id number] Closed Auto-Generate d Referral 04/16/2022 04/16/2023 1 1 [facility] for visit Narrative* Diagnostic Procedure Only (Urgent) - Closed Specialty Diagnoses / Procedures Referred By Contac t Referred To Contact US IMAGING Diagnoses Elevated lipase Bloating Upper abdominal pain Nausea Procedures US ABD RIGHT UPPER QUADRANT US ABDOMINAL REAL TIME W/IMAGE LIMITED Angeline Monterroso, SITE IDENTIFICATION SPECIALIST.BACKWINDER [address] [place] [address] [place] [address] Referral ID Status Reason Start Date Expiration Date V isits Requested Visits Authorized [id number] Closed Auto-Generate d Referral 05/08/2023 06/06/2024 1 1 [facility] for visit Narrative* Diagnostic Procedure Only (Routine) - Closed Specialty Diagnoses / Procedures Referred By Contac t Referred To Contact XR IMAGING Diagnoses Left knee pain, unspecified chronicity Procedures XR KNEE POST OP 3V AP/LAT/MERCHANT LEFT RADIOLOGIC EXAMINATION KNEE 3 VIEWS Michael Del Castillo PA-C [address] [place] [address] [place] [address] Referral ID Status Reason Start Date Expiration Date V isits Requested Visits Authorized [id number] Closed Auto-Generate d Referral 01/10/2023 02/09/2024 1 1 [facility] for visit Narrative* Diagnostic Procedure Only (Routine) - Closed Specialty Diagnoses / Procedures Referred By Contac t Referred To Contact XR IMAGING Diagnoses Pain in lateral portion of right ankle Procedures XR ANKLE GENERAL 3V AP/LAT/OBL RIGHT RADEX ANKLE COMPLETE MINIMUM 3 VIEWS Kinga Goldberg SITE IDENTIFICATION SPECIALIST.BACKWINDER [address] [place] [address] [place] [address] Referral ID Status Reason Start Date Expiration Date V isits Requested Visits Authorized [id number] Closed Auto-Generate d Referral 11/25/2023 12/24/2024 1 1 [facility] for visit Narrative* Diagnostic Procedure Only (Routine) - Closed Specialty Diagnoses / Procedures Referred By Contac t Referred To Contact XR IMAGING Diagnoses Flank pain Procedures XR THORACIC LIMITED 2V AP/LAT RADEX SPINE THORACIC 2 VIEWS Charissa Jauregui, SITE IDENTIFICATION SPECIALIST.BACKWINDER [address] [place] [address] [place] [address] Referral ID Status Reason Start Date Expiration Date V isits Requested Visits Authorized [id number] Closed Auto-Generate d Referral 06/09/2021 07/09/2022 1 1 [facility] for visit Narrative* Diagnostic Procedure Only (Routine) - Closed Specialty Diagnoses / Procedures Referred By Contac t Referred To Contact XR IMAGING Diagnoses Foot pain, left Erythema of foot Procedures XR FOOT GENERAL 3V AP/LAT/OBL LEFT RADEX FOOT COMPLETE MINIMUM 3 VIEWS Angeline Monterroso, SITE IDENTIFICATION SPECIALIST.BACKWINDER [address] [place] [address] [place] [address] Referral ID Status Reason Start Date Expiration Date V isits Requested Visits Authorized [id number] Closed Auto-Generate d Referral 07/20/2021 08/19/2022 1 1 [facility] for visit Narrative* Diagnostic Procedure Only (Routine) - Closed Specialty Diagnoses / Procedures Referred By Clary t Referred To Contact XR IMAGING Diagnoses Injury of left hip, initial encounter Hip pain Procedures XR HIP GENERAL 3V PELV/AP/LAT LEFT RADEX HIP UNILATERAL WITH PELVIS 2-3 VIEWS Angeline Monterroso APRN.BACKWINDER [address] [place] [address] [place] [address] Referral ID Status Reason Start Date Expiration Date V isits Requested Visits Authorized [id number] Closed Auto-Generate d Referral 04/10/2021 05/10/2022 1 1 [facility] for visit Narrative* Diagnostic Procedure Only (Routine) - Authorized Specialty Diagnoses / Procedures Referred By Clary abraham Referred To Contact Radiology / [facility] Diagnoses Pancreatic cyst Pancreatic Cyst Procedures MRI ABDOMEN W/O & W/CONTRAST MATERIAL MRI WWO ABD 300 Juan Mendez MD [address] [place] [address] Phone: tel: fax: Radiology [address] [place] [address] Phone: tel: fax: Referral ID Status Reason Start Date Expiration Date V isits Requested Visits Authorized [id number] Authorized 04/20/2024 03/03/2025 2 2 [facility] for visit Narrative* Diagnostic Procedure Only (Routine) - Closed Specialty Diagnoses / Procedures Referred By Clary t Referred To Contact XR IMAGING Diagnoses Chronic left-sided low back pain without sciatica Procedures XR THORACIC GENERAL 3V AP/LAT/SWIMMERS RADEX SPINE THORACIC 3 VIEWS Angeline Monterroso, PARMJIT.BACKWINDER [address] [place] [address] Phone: tel: fax: [place] [address] Referral ID Status Reason Start Date Expiration Date V isits Requested Visits Authorized [id number] Closed Auto-Generate d Referral 06/02/2024 07/02/2025 1 1 [facility] for visit Narrative* Diagnostic Procedure Only (Urgent) - Closed Specialty Diagnoses / Procedures Referred By Contac t Referred To Contact XR IMAGING Diagnoses Sprain of ligament of right ankle, initial encounter Procedures XR ANKLE GENERAL 3V AP/LAT/OBL RIGHT RADEX ANKLE COMPLETE MINIMUM 3 VIEWS Lani Arndt PA-C [address] [facility] [address] [place] [address] Phone: tel: fax: [place] [address] Referral ID Status Reason Start Date Expiration Date V isits Requested Visits Authorized [id number] Closed Auto-Generate d Referral 06/30/2024 07/30/2025 [facility] ([facility] - Closed Specialty Diagnoses / Procedures Referred By Clary abraham Referred To Contact MR IMAGING Diagnoses Spinal stenosis of lumbar region, unspecified whether neurogenic claudication present Procedures MRI LUMBAR SPINE WO IVCON MRI SPINAL CANAL LUMBAR W/O CONTRAST MATERIAL Mary Keith, SITE IDENTIFICATION SPECIALIST.BACKWINDER [address] [place] [address] Phone: tel: fax: [place] [address] Referral ID Status Reason Start Date Expiration Date V isits Requested Visits Authorized [id number] Closed Auto-Generate d Referral 07/23/2024 08/22/2025 1 1 [facility] Advance Directives No Advanced Directives Records FoundDocuments on File Type Date Recorded 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 Advance Directive(s) 05/10/2022 8:51 AM Date Activated Date Inactivated Comments 03/30/2020 2:47 PM 03/31/2020 11:31 PM Latest Code Status on File Code Status Date Activated Date Inactivated Comments Full Code 03/30/2020 2:47 PM 03/31/2020 11:31 PM Documents on File Type Date Recorded 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 Advance Directive(s) 12/18/2020 8:29 PM [...] Documents on File Type Date Recorded 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 Advance Directive(s) 12/18/2020 8:29 PM [...] September 07, 2016 4 :20pm Power of Spinning Lathe Operator Hydraulic Yes September 07, 2016 4:20pm Advance Directive Response Recorded Date/ Time Living Will Yes September 07, 2016 3 :20pm Power of Spinning Lathe Operator Hydraulic Yes September 07, 2016 3:20pm Documents on File Type Date Recorded 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 Advance Directive(s) 05/10/2022 8:51 AM [...] of foot Procedures CONSULT TO PODIATRY OFFICE/OUTPATIENT [facility] 60-74 MINUTES Kandi Contreras APRN.BACKWINDER [address] [place] [address] Referral ID Status Reason Start Date Expiration Date Visits Requested Visits Authorized [id number] Pending Review PCP Requested Referral 07/21/2021 07/21/2022 1 1 Specialty Diagnoses / Procedures Referred By Contac t Referred To Contact [facility] Diagnoses Pelvic floor dysfunction in female Prolapse of intestine Urinary incontinence, unspecified type Procedures CONSULT TO PHYSICAL THERAPY PHYSICAL THERAPY EVALUATION HIGH COMPLEX 45 MINS Edenilson Nicholson, DO [address] [place] [address] [facility] [address] [place] [address] Referral ID Status Reason Start Date Expiration Date Visits Requested Visits Authorized [id number] Pending Review Auto-Generat ed Referral 12/05/2021 12/05/2022 1 1 Specialty Diagnoses / Procedures Referred By Contac t Referred To Contact Colon and Rectal Surgery Diagnoses Rectal prolapse Procedures CONSULT TO COLO-RECTAL SURGERY OFFICE/OUTPATIENT [facility] 60-74 MINUTES Yi Gonsalves APRN.BACKWINDER [address] [place] [address] Referral ID Status Reason Start Date Expiration Date Visits Requested Visits Authorized [id number] Pending Review PCP Requested Referral 12/06/2021 12/06/2022 1 1 Specialty Diagnoses / Procedures Referred By Contac t Referred To Contact XR IMAGING Diagnoses Rectocele Enterocele Rectal prolapse Procedures XR DEFECOGRAPHY RADIOLOGIC EXAM COLON SINGLE CONTRAST STUDY Yi Gonsalves APRN.BACKWINDER [address] [place] [address] X[facility] Imaging Referral ID Status Reason Start Date Expiration Date Visits Requested Visits Authorized [id number] Authorized Auto-Generat ed Referral 12/06/2021 01/05/2023 1 1 Specialty Diagnoses / Procedures Referred By Contac t Referred To Contact [facility] Diagnoses Rectocele Enterocele Rectal prolapse Procedures [facility] ANORECTAL MANOMETRY ANORECTAL MANOMETRY Yi Gonsalves, PARMJIT.BACKWINDER [address] [place] [address] [facility] [address] [place] [address] Referral ID Status Reason Start Date Expiration Date Visits Requested Visits Authorized [id number] Pending Review Auto-Generat ed Referral 12/06/2021 12/06/2022 1 1 Specialty Diagnoses / Procedures Referred By Contac t Referred To Contact Urology Diagnoses Urinary frequency Procedures CONSULT TO UROLOGY OFFICE/OUTPATIENT [facility] 60-74 MINUTES Johnie Aguirre APRN.BACKWINDER [address] [place] [address] Referral ID Status Reason Start Date Expiration Date Visits Requested Visits Authorized [id number] Pending Review PCP Requested Referral 02/10/2023 1 1 Specialty Diagnoses / Procedures Referred By Contac t Referred To Contact CT IMAGING Diagnoses Short-term memory loss Word finding difficulty Procedures CT BRAIN WO IVCON CT HEAD/BRAIN W/O CONTRAST MATERIAL Edenilson Nicholson L, DO [address] [place] [address] Ct Imaging Referral ID Status Reason Start Date Expiration Date Visits Requested Visits Authorized [id number] Authorized Auto-Generat ed Referral 08/01/2022 08/31/2023 1 1 Specialty Diagnoses / Procedures Referred By Contac t Referred To Contact MR IMAGING Diagnoses Cystic mass of pancreas Procedures MRI 3D POST PROCESSING 3D RENDERING W/INTERP&POSTPROC DIFF WORK STATION Edenilson Nicholson, DO [address] [place] [address] [place] [address] Referral ID Status Reason Start Date Expiration Date V isits Requested Visits Authorized [id number] Closed Auto-Generate d Referral 11/28/2022 12/28/2023 1 1 Specialty Diagnoses / Procedures Referred By Contac t Referred To Contact MR IMAGING Diagnoses Cystic mass of pancreas Procedures MRI PANC/ARETHA WO/W IVCON MRI ABDOMEN W/O & W/CONTRAST MATERIAL Edenilson Nicholson, DO [address] [place] [address] [place] [address] Referral ID Status Reason Start Date Expiration Date V isits Requested Visits Authorized [id number] Closed Auto-Generate d Referral 11/28/2022 12/28/2023 1 1 Specialty Diagnoses / Procedures Referred By Contac t Referred To Contact CT IMAGING Diagnoses Short-term memory loss Word finding difficulty Procedures CT BRAIN WO IVCON CT HEAD/BRAIN W/O CONTRAST MATERIAL Edenilson Nicholson, DO [address] [place] [address] [place] [address] Referral ID Status Reason Start Date Expiration Date V isits Requested Visits Authorized [id number] Closed Auto-Generate d Referral 08/01/2022 08/31/2023 1 1 Specialty Diagnoses / Procedures Referred By Contac t Referred To Contact MR IMAGING Diagnoses Pancreas cyst Cystic mass of pancreas Abnormal MRI of abdomen Procedures MRI 3D POST PROCESSING 3D RENDERING W/INTERP&POSTPROC DIFF WORK STATION Edenilson Nicholson, DO [address] [place] [address] [place] [address] Referral ID Status Reason Start Date Expiration Date Visits Requested Visits Authorized [id number] Pending Review Auto-Generat ed Referral 3 02/15/2024 1 1 Specialty Diagnoses / Procedures Referred By Contac t Referred To Contact MR IMAGING Diagnoses Pancreas cyst Cystic mass of pancreas Abnormal MRI of abdomen Procedures MRI PANC/ARETHA WO/W IVCON MRI ABDOMEN W/O & W/CONTRAST MATERIAL Edenilson Nicholson DO [address] [place] [address] [place] [address] Referral ID Status Reason Start Date Expiration Date Visits Requested Visits Authorized [id number] Pending Review Auto-Generat ed Referral 07/17/2023 02/15/2024 1 1 Specialty Diagnoses / Procedures Referred By Contac t Referred To Contact Diagnoses Acute left-sided low back pain without sciatica Angeline Monterroso APRN.BACKWINDER [address] [place] [address] Referral ID Status Reason Start Date Expiration Date V isits Requested Visits Authorized [id number] Authorized 02/24/2024 03/25/2025 1 1 Specialty Diagnoses / Procedures Referred By Contac t Referred To Contact [facility] Diagnoses Acute left-sided low back pain without sciatica Procedures CONSULT TO PHYSICAL THERAPY PHYSICAL THERAPY EVALUATION HIGH COMPLEX 45 MINS Angeline Monterroso APRN.BACKWINDER [address] [place] [address] [facility] [address] [place] [address] Referral ID Status Reason Start Date Expiration Date Visits Requested Visits Authorized [id number] Authorized Auto-Generat ed Referral 03/04/2024 03/03/2025 99 [...] or prosecute any alcohol or drug abuse patient.[facility] the event this information is protected by the Federal Confidentiality of Alcohol and Drug Abuse Patient Records regulations: The Federal rules restrict any use of the information to criminally investigate or prosecute any alcohol or drug abuse patient.[facility] the event this information is protected by the Federal Confidentiality of Alcohol and Drug Abuse Patient Records regulations: The Federal rules restrict any use of the information to criminally investigate or prosecute any alcohol or drug abuse patient.[facility] the event this information is protected by the Federal Confidentiality of Alcohol and Drug Abuse Patient Records regulations: The Federal rules restrict any use of the information to criminally investigate or prosecute any alcohol or drug abuse patient.[facility] the event this information is protected by the Federal Confidentiality of Alcohol and Drug Abuse Patient Records regulations: The Federal rules restrict any use of the information to criminally investigate or prosecute any alcohol or drug abuse patient.[facility] the event this information is protected by the Federal Confidentiality of Alcohol and Drug Abuse Patient Records regulations: The Federal rules restrict any use of the information to criminally investigate or prosecute any alcohol or drug abuse patient.[facility] the event this information is protected by the Federal Confidentiality of Alcohol and Drug Abuse Patient Records regulations: The Federal rules restrict any use of the information to criminally investigate or prosecute any alcohol or drug abuse patient.[facility] the event this information is protected by the Federal Confidentiality of Alcohol and Drug Abuse Patient Records regulations: The Federal rules restrict any use of the information to criminally investigate or prosecute any alcohol or drug abuse patient.[facility] the event this information is protected by the Federal Confidentiality of Alcohol and Drug Abuse Patient Records regulations: The Federal rules restrict any use of the information to criminally investigate or prosecute any alcohol or drug abuse patient.[facility] the event this information is protected by the Federal Confidentiality of Alcohol and Drug Abuse Patient Records regulations: The Federal rules restrict any use of the information to criminally investigate or prosecute any alcohol or drug abuse patient.[facility] Hospital[facility] the event this information is protected by the Federal Confidentiality of Alcohol and Drug Abuse Patient Records regulations: The Federal rules restrict any use of the information to criminally investigate or prosecute any alcohol or drug abuse patient.[facility] Hospital[facility] the event this information is protected by the Federal Confidentiality of Alcohol and Drug Abuse Patient Records regulations: The Federal rules restrict any use of the information to criminally investigate or prosecute any alcohol or drug abuse patient.[facility] HospitalIn the event this information is protected by the Federal Confidentiality of Alcohol and Drug Abuse Patient Records regulations: The Federal rules restrict any use of the information to criminally investigate or prosecute any alcohol or drug abuse patient.[facility] HospitalIn the event this information is protected by the Federal Confidentiality of Alcohol and Drug Abuse Patient Records regulations: The Federal rules restrict any use of the information to criminally investigate or prosecute any alcohol or drug abuse patient.[facility] HospitalIn the event this information is protected by the Federal Confidentiality of Alcohol and Drug Abuse Patient Records regulations: The Federal rules restrict any use of the information to criminally investigate or prosecute any alcohol or drug abuse patient.[facility] HospitalIn the event this information is protected by the Federal Confidentiality of Alcohol and Drug Abuse Patient Records regulations: The Federal rules restrict any use of the information to criminally investigate or prosecute any alcohol or drug abuse patient.[facility] HospitalIn the event this information is protected by the Federal Confidentiality of Alcohol and Drug Abuse Patient Records regulations: The Federal rules restrict any use of the information to criminally investigate or prosecute any alcohol or drug abuse patient.[facility] HospitalIn the event this information is protected by the Federal Confidentiality of Alcohol and Drug Abuse Patient Records regulations: The Federal rules restrict any use of the information to criminally investigate or prosecute any alcohol or drug abuse patient.[facility] HospitalIn the event this information is protected by the Federal Confidentiality of Alcohol and Drug Abuse Patient Records regulations: The Federal rules restrict any use of the information to criminally investigate or prosecute any alcohol or drug abuse patient.[facility] HospitalIn the event this information is protected by the Federal Confidentiality of Alcohol and Drug Abuse Patient Records regulations: The Federal rules restrict any use of the information to criminally investigate or prosecute any alcohol or drug abuse patient.[facility] HospitalIn the event this information is protected by the Federal Confidentiality of Alcohol and Drug Abuse Patient Records regulations: The Federal rules restrict any use of the information to criminally investigate or prosecute any alcohol or drug abuse patient.[facility] HospitalIn the event this information is protected by the Federal Confidentiality of Alcohol and Drug Abuse Patient Records regulations: The Federal rules restrict any use of the information to criminally investigate or prosecute any alcohol or drug abuse patient.[facility] HospitalIn the event this information is protected by the Federal Confidentiality of Alcohol and Drug Abuse Patient Records regulations: The Federal rules restrict any use of the information to criminally investigate or prosecute any alcohol or drug abuse patient.[facility] HospitalIn the event this information is protected by the Federal Confidentiality of Alcohol and Drug Abuse Patient Records regulations: The Federal rules restrict any use of the information to criminally investigate or prosecute any alcohol or drug abuse patient.[facility] HospitalIn the event this information is protected by the Federal Confidentiality of Alcohol and Drug Abuse Patient Records regulations: The Federal rules restrict any use of the information to criminally investigate or prosecute any alcohol or drug abuse patient.[facility] HospitalIn the event this information is protected by the Federal Confidentiality of Alcohol and Drug Abuse Patient Records regulations: The Federal rules restrict any use of the information to criminally investigate or prosecute any alcohol or drug abuse patient.[facility] HospitalIn the event this information is protected by the Federal Confidentiality of Alcohol and Drug Abuse Patient Records regulations: The Federal rules restrict any use of the information to criminally investigate or prosecute any alcohol or drug abuse patient.[facility] HospitalIn the event this information is protected by the Federal Confidentiality of Alcohol and Drug Abuse Patient Records regulations: The Federal rules restrict any use of the information to criminally investigate or prosecute any alcohol or drug abuse patient.[facility] HospitalIn the event this information is protected by the Federal Confidentiality of Alcohol and Drug Abuse Patient Records regulations: The Federal rules restrict any use of the information to criminally investigate or prosecute any alcohol or drug abuse patient.[facility] HospitalIn the event this information is protected by the Federal Confidentiality of Alcohol and Drug Abuse Patient Records regulations: The Federal rules restrict any use of the information to criminally investigate or prosecute any alcohol or drug abuse patient.[facility] HospitalIn the event this information is protected by the Federal Confidentiality of Alcohol and Drug Abuse Patient Records regulations: The Federal rules restrict any use of the information to criminally investigate or prosecute any alcohol or drug abuse patient.[facility] HospitalIn the event this information is protected by the Federal Confidentiality of Alcohol and Drug Abuse Patient Records regulations: The Federal rules restrict any use of the information to criminally investigate or prosecute any alcohol or drug abuse patient.[facility] HospitalIn the event this information is protected by the Federal Confidentiality of Alcohol and Drug Abuse Patient Records regulations: The Federal rules restrict any use of the information to criminally investigate or prosecute any alcohol or drug abuse patient.[facility] HospitalIn the event this information is protected by the Federal Confidentiality of Alcohol and Drug Abuse Patient Records regulations: The Federal rules restrict any use of the information to criminally investigate or prosecute any alcohol or drug abuse patient.[facility] HospitalIn the event this information is protected by the Federal Confidentiality of Alcohol and Drug Abuse Patient Records regulations: The Federal rules restrict any use of the information to criminally investigate or prosecute any alcohol or drug abuse patient.[facility] HospitalIn the event this information is protected by the Federal Confidentiality of Alcohol and Drug Abuse Patient Records regulations: The Federal rules restrict any use of the information to criminally investigate or prosecute any alcohol or drug abuse patient.[facility] HospitalIn the event this information is protected by the Federal Confidentiality of Alcohol and Drug Abuse Patient Records regulations: The Federal rules restrict any use of the information to criminally investigate or prosecute any alcohol or drug abuse patient.[facility] HospitalIn the event this information is protected by the Federal Confidentiality of Alcohol and Drug Abuse Patient Records regulations: The Federal rules restrict any use of the information to criminally investigate or prosecute any alcohol or drug abuse patient.[facility] HospitalIn the event this information is protected by the Federal Confidentiality of Alcohol and Drug Abuse Patient Records regulations: The Federal rules restrict any use of the information to criminally investigate or prosecute any alcohol or drug abuse patient.[facility] HospitalIn the event this information is protected by the Federal Confidentiality of Alcohol and Drug Abuse Patient Records regulations: The Federal rules restrict any use of the information to criminally investigate or prosecute any alcohol or drug abuse patient.[facility] HospitalIn the event this information is protected by the Federal Confidentiality of Alcohol and Drug Abuse Patient Records regulations: The Federal rules restrict any use of the information to criminally investigate or prosecute any alcohol or drug abuse patient.[facility] HospitalIn the event this information is protected by the Federal Confidentiality of Alcohol and Drug Abuse Patient Records regulations: The Federal rules restrict any use of the information to criminally investigate or prosecute any alcohol or drug abuse patient.[facility] HospitalIn the event this information is protected by the Federal Confidentiality of Alcohol and Drug Abuse Patient Records regulations: The Federal rules restrict any use of the information to criminally investigate or prosecute any alcohol or drug abuse patient.[facility] HospitalIn the event this information is protected by the Federal Confidentiality of Alcohol and Drug Abuse Patient Records regulations: The Federal rules restrict any use of the information to criminally investigate or prosecute any alcohol or drug abuse patient.[facility] HospitalIn the event this information is protected by the Federal Confidentiality of Alcohol and Drug Abuse Patient Records regulations: The Federal rules restrict any use of the information to criminally investigate or prosecute any alcohol or drug abuse patient.[facility] HospitalIn the event this information is protected by the Federal Confidentiality of Alcohol and Drug Abuse Patient Records regulations: The Federal rules restrict any use of the information to criminally investigate or prosecute any alcohol or drug abuse patient.[facility] HospitalIn the event this information is protected by the Federal Confidentiality of Alcohol and Drug Abuse Patient Records regulations: The Federal rules restrict any use of the information to criminally investigate or prosecute any alcohol or drug abuse patient.[facility] HospitalIn the event this information is protected by the Federal Confidentiality of Alcohol and Drug Abuse Patient Records regulations: The Federal rules restrict any use of the information to criminally investigate or prosecute any alcohol or drug abuse patient.[facility] HospitalIn the event this information is protected by the Federal Confidentiality of Alcohol and Drug Abuse Patient Records regulations: The Federal rules restrict any use of the information to criminally investigate or prosecute any alcohol or drug abuse patient.[facility] HospitalIn the event this information is protected by the Federal Confidentiality of Alcohol and Drug Abuse Patient Records regulations: The Federal rules restrict any use of the information to criminally investigate or prosecute any alcohol or drug abuse patient.[facility] HospitalIn the event this information is protected by the Federal Confidentiality of Alcohol and Drug Abuse Patient Records regulations: The Federal rules restrict any use of the information to criminally investigate or prosecute any alcohol or drug abuse patient.[facility] HospitalIn the event this information is protected by the Federal Confidentiality of Alcohol and Drug Abuse Patient Records regulations: The Federal rules restrict any use of the information to criminally investigate or prosecute any alcohol or drug abuse patient.[facility] HospitalIn the event this information is protected by the Federal Confidentiality of Alcohol and Drug Abuse Patient Records regulations: The Federal rules restrict any use of the information to criminally investigate or prosecute any alcohol or drug abuse patient.[facility] HospitalIn the event this information is protected by the Federal Confidentiality of Alcohol and Drug Abuse Patient Records regulations: The Federal rules restrict any use of the information to criminally investigate or prosecute any alcohol or drug abuse patient.[facility] HospitalIn the event this information is protected by the Federal Confidentiality of Alcohol and Drug Abuse Patient Records regulations: The Federal rules restrict any use of the information to criminally investigate or prosecute any alcohol or drug abuse patient.[facility] HospitalIn the event this information is protected by the Federal Confidentiality of Alcohol and Drug Abuse Patient Records regulations: The Federal rules restrict any use of the information to criminally investigate or prosecute any alcohol or drug abuse patient.[facility] HospitalIn the event this information is protected by the Federal Confidentiality of Alcohol and Drug Abuse Patient Records regulations: The Federal rules restrict any use of the information to criminally investigate or prosecute any alcohol or drug abuse patient.[facility] HospitalIn the event this information is protected by the Federal Confidentiality of Alcohol and Drug Abuse Patient Records regulations: The Federal rules restrict any use of the information to criminally investigate or prosecute any alcohol or drug abuse patient.[facility] HospitalIn the event this information is protected by the Federal Confidentiality of Alcohol and Drug Abuse Patient Records regulations: The Federal rules restrict any use of the information to criminally investigate or prosecute any alcohol or drug abuse patient.[facility] HospitalIn the event this information is protected by the Federal Confidentiality of Alcohol and Drug Abuse Patient Records regulations: The Federal rules restrict any use of the information to criminally investigate or prosecute any alcohol or drug abuse patient.[facility] HospitalIn the event this information is protected by the Federal Confidentiality of Alcohol and Drug Abuse Patient Records regulations: The Federal rules restrict any use of the information to criminally investigate or prosecute any alcohol or drug abuse patient.[facility] HospitalIn the event this information is protected by the Federal Confidentiality of Alcohol and Drug Abuse Patient Records regulations: The Federal rules restrict any use of the information to criminally investigate or prosecute any alcohol or drug abuse patient.[facility] HospitalIn the event this information is protected by the Federal Confidentiality of Alcohol and Drug Abuse Patient Records regulations: The Federal rules restrict any use of the information to criminally investigate or prosecute any alcohol or drug abuse patient.[facility] HospitalIn the event this information is protected by the Federal Confidentiality of Alcohol and Drug Abuse Patient Records regulations: The Federal rules restrict any use of the information to criminally investigate or prosecute any alcohol or drug abuse patient.[facility] HospitalIn the event this information is protected by the Federal Confidentiality of Alcohol and Drug Abuse Patient Records regulations: The Federal rules restrict any use of the information to criminally investigate or prosecute any alcohol or drug abuse patient.[facility] HospitalIn the event this information is protected by the Federal Confidentiality of Alcohol and Drug Abuse Patient Records regulations: The Federal rules restrict any use of the information to criminally investigate or prosecute any alcohol or drug abuse patient.[facility] HospitalIn the event this information is protected by the Federal Confidentiality of Alcohol and Drug Abuse Patient Records regulations: The Federal rules restrict any use of the information to criminally investigate or prosecute any alcohol or drug abuse patient.[facility] HospitalIn the event this information is protected by the Federal Confidentiality of Alcohol and Drug Abuse Patient Records regulations: The Federal rules restrict any use of the information to criminally investigate or prosecute any alcohol or drug abuse patient.[facility] HospitalIn the event this information is protected by the Federal Confidentiality of Alcohol and Drug Abuse Patient Records regulations: The Federal rules restrict any use of the information to criminally investigate or prosecute any alcohol or drug abuse patient.[facility] HospitalIn the event this information is protected by the Federal Confidentiality of Alcohol and Drug Abuse Patient Records regulations: The Federal rules restrict any use of the information to criminally investigate or prosecute any alcohol or drug abuse patient.[facility] HospitalIn the event this information is protected by the Federal Confidentiality of Alcohol and Drug Abuse Patient Records regulations: The Federal rules restrict any use of the information to criminally investigate or prosecute any alcohol or drug abuse patient.[facility] HospitalIn the event this information is protected by the Federal Confidentiality of Alcohol and Drug Abuse Patient Records regulations: The Federal rules restrict any use of the information to criminally investigate or prosecute any alcohol or drug abuse patient.[facility] HospitalIn the event this information is protected by the Federal Confidentiality of Alcohol and Drug Abuse Patient Records regulations: The Federal rules restrict any use of the information to criminally investigate or prosecute any alcohol or drug abuse patient.[facility] HospitalIn the event this information is protected by the Federal Confidentiality of Alcohol and Drug Abuse Patient Records regulations: The Federal rules restrict any use of the information to criminally investigate or prosecute any alcohol or drug abuse patient.[facility] HospitalIn the event this information is protected by the Federal Confidentiality of Alcohol and Drug Abuse Patient Records regulations: The Federal rules restrict any use of the information to criminally investigate or prosecute any alcohol or drug abuse patient.[facility] HospitalIn the event this information is protected by the Federal Confidentiality of Alcohol and Drug Abuse Patient Records regulations: The Federal rules restrict any use of the information to criminally investigate or prosecute any alcohol or drug abuse patient.[facility] HospitalIn the event this information is protected by the Federal Confidentiality of Alcohol and Drug Abuse Patient Records regulations: The Federal rules restrict any use of the information to criminally investigate or prosecute any alcohol or drug abuse patient.[facility] HospitalIn the event this information is protected by the Federal Confidentiality of Alcohol and Drug Abuse Patient Records regulations: The Federal rules restrict any use of the information to criminally investigate or prosecute any alcohol or drug abuse patient.[facility] HospitalIn the event this information is protected by the Federal Confidentiality of Alcohol and Drug Abuse Patient Records regulations: The Federal rules restrict any use of the information to criminally investigate or prosecute any alcohol or drug abuse patient.[facility] HospitalIn the event this information is protected by the Federal Confidentiality of Alcohol and Drug Abuse Patient Records regulations: The Federal rules restrict any use of the information to criminally investigate or prosecute any alcohol or drug abuse patient.[facility] HospitalIn the event this information is protected by the Federal Confidentiality of Alcohol and Drug Abuse Patient Records regulations: The Federal rules restrict any use of the information to criminally investigate or prosecute any alcohol or drug abuse patient.[facility] HospitalIn the event this information is protected by the Federal Confidentiality of Alcohol and Drug Abuse Patient Records regulations: The Federal rules restrict any use of the information to criminally investigate or prosecute any alcohol or drug abuse patient.[facility] HospitalIn the event this information is protected by the Federal Confidentiality of Alcohol and Drug Abuse Patient Records regulations: The Federal rules restrict any use of the information to criminally investigate or prosecute any alcohol or drug abuse patient.[facility] HospitalIn the event this information is protected by the Federal Confidentiality of Alcohol and Drug Abuse Patient Records regulations: The Federal rules restrict any use of the information to criminally investigate or prosecute any alcohol or drug abuse patient.[facility] HospitalIn the event this information is protected by the Federal Confidentiality of Alcohol and Drug Abuse Patient Records regulations: The Federal rules restrict any use of the information to criminally investigate or prosecute any alcohol or drug abuse patient.[facility] HospitalIn the event this information is protected by the Federal Confidentiality of Alcohol and Drug Abuse Patient Records regulations: The Federal rules restrict any use of the information to criminally investigate or prosecute any alcohol or drug abuse patient.[facility] HospitalIn the event this information is protected by the Federal Confidentiality of Alcohol and Drug Abuse Patient Records regulations: The Federal rules restrict any use of the information to criminally investigate or prosecute any alcohol or drug abuse patient.[facility] HospitalIn the event this information is protected by the Federal Confidentiality of Alcohol and Drug Abuse Patient Records regulations: The Federal rules restrict any use of the information to criminally investigate or prosecute any alcohol or drug abuse patient.[facility] HospitalIn the event this information is protected by the Federal Confidentiality of Alcohol and Drug Abuse Patient Records regulations: The Federal rules restrict any use of the information to criminally investigate or prosecute any alcohol or drug abuse patient.[facility] HospitalIn the event this information is protected by the Federal Confidentiality of Alcohol and Drug Abuse Patient Records regulations: The Federal rules restrict any use of the information to criminally investigate or prosecute any alcohol or drug abuse patient.[facility] HospitalIn the event this information is protected by the Federal Confidentiality of Alcohol and Drug Abuse Patient Records regulations: The Federal rules restrict any use of the information to criminally investigate or prosecute any alcohol or drug abuse patient.[facility] HospitalIn the event this information is protected by the Federal Confidentiality of Alcohol and Drug Abuse Patient Records regulations: The Federal rules restrict any use of the information to criminally investigate or prosecute any alcohol or drug abuse patient.[facility] HospitalIn the event this information is protected by the Federal Confidentiality of Alcohol and Drug Abuse Patient Records regulations: The Federal rules restrict any use of the information to criminally investigate or prosecute any alcohol or drug abuse patient.[facility] HospitalIn the event this information is protected by the Federal Confidentiality of Alcohol and Drug Abuse Patient Records regulations: The Federal rules restrict any use of the information to criminally investigate or prosecute any alcohol or drug abuse patient.[facility] HospitalIn the event this information is protected by the Federal Confidentiality of Alcohol and Drug Abuse Patient Records regulations: The Federal rules restrict any use of the information to criminally investigate or prosecute any alcohol or drug abuse patient.[facility] HospitalIn the event this information is protected by the Federal Confidentiality of Alcohol and Drug Abuse Patient Records regulations: The Federal rules restrict any use of the information to criminally investigate or prosecute any alcohol or drug abuse patient.[facility] HospitalIn the event this information is protected by the Federal Confidentiality of Alcohol and Drug Abuse Patient Records regulations: The Federal rules restrict any use of the information to criminally investigate or prosecute any alcohol or drug abuse patient.[facility] HospitalIn the event this information is protected by the Federal Confidentiality of Alcohol and Drug Abuse Patient Records regulations: The Federal rules restrict any use of the information to criminally investigate or prosecute any alcohol or drug abuse patient.[facility] HospitalIn the event this information is protected by the Federal Confidentiality of Alcohol and Drug Abuse Patient Records regulations: The Federal rules restrict any use of the information to criminally investigate or prosecute any alcohol or drug abuse patient.[facility] HospitalIn the event this information is protected by the Federal Confidentiality of Alcohol and Drug Abuse Patient Records regulations: The Federal rules restrict any use of the information to criminally investigate or prosecute any alcohol or drug abuse patient.[facility] HospitalIn the event this information is protected by the Federal Confidentiality of Alcohol and Drug Abuse Patient Records regulations: The Federal rules restrict any use of the information to criminally investigate or prosecute any alcohol or drug abuse patient.[facility] HospitalIn the event this information is protected by the Federal Confidentiality of Alcohol and Drug Abuse Patient Records regulations: The Federal rules restrict any use of the information to criminally investigate or prosecute any alcohol or drug abuse patient.[facility] HospitalIn the event this information is protected by the Federal Confidentiality of Alcohol and Drug Abuse Patient Records regulations: The Federal rules restrict any use of the information to criminally investigate or prosecute any alcohol or drug abuse patient.[facility] HospitalIn the event this information is protected by the Federal Confidentiality of Alcohol and Drug Abuse Patient Records regulations: The Federal rules restrict any use of the information to criminally investigate or prosecute any alcohol or drug abuse patient.[facility] HospitalIn the event this information is protected by the Federal Confidentiality of Alcohol and Drug Abuse Patient Records regulations: The Federal rules restrict any use of the information to criminally investigate or prosecute any alcohol or drug abuse patient.[facility] HospitalIn the event this information is protected by the Federal Confidentiality of Alcohol and Drug Abuse Patient Records regulations: The Federal rules restrict any use of the information to criminally investigate or prosecute any alcohol or drug abuse patient.[facility] HospitalIn the event this information is protected by the Federal Confidentiality of Alcohol and Drug Abuse Patient Records regulations: The Federal rules restrict any use of the information to criminally investigate or prosecute any alcohol or drug abuse patient.[facility] HospitalIn the event this information is protected by the Federal Confidentiality of Alcohol and Drug Abuse Patient Records regulations: The Federal rules restrict any use of the information to criminally investigate or prosecute any alcohol or drug abuse patient.[facility] HospitalIn the event this information is protected by the Federal Confidentiality of Alcohol and Drug Abuse Patient Records regulations: The Federal rules restrict any use of the information to criminally investigate or prosecute any alcohol or drug abuse patient.[facility] HospitalIn the event this information is protected by the Federal Confidentiality of Alcohol and Drug Abuse Patient Records regulations: The Federal rules restrict any use of the information to criminally investigate or prosecute any alcohol or drug abuse patient.[facility] HospitalIn the event this information is protected by the Federal Confidentiality of Alcohol and Drug Abuse Patient Records regulations: The Federal rules restrict any use of the information to criminally investigate or prosecute any alcohol or drug abuse patient.[facility] HospitalIn the event this information is protected by the Federal Confidentiality of Alcohol and Drug Abuse Patient Records regulations: The Federal rules restrict any use of the information to criminally investigate or prosecute any alcohol or drug abuse patient.[facility] HospitalIn the event this information is protected by the Federal Confidentiality of Alcohol and Drug Abuse Patient Records regulations: The Federal rules restrict any use of the information to criminally investigate or prosecute any alcohol or drug abuse patient.[facility] HospitalIn the event this information is protected by the Federal Confidentiality of Alcohol and Drug Abuse Patient Records regulations: The Federal rules restrict any use of the information to criminally investigate or prosecute any alcohol or drug abuse patient.[facility] HospitalIn the event this information is protected by the Federal Confidentiality of Alcohol and Drug Abuse Patient Records regulations: The Federal rules restrict any use of the information to criminally investigate or prosecute any alcohol or drug abuse patient.[facility] HospitalIn the event this information is protected by the Federal Confidentiality of Alcohol and Drug Abuse Patient Records regulations: The Federal rules restrict any use of the information to criminally investigate or prosecute any alcohol or drug abuse patient.[facility] HospitalIn the event this information is protected by the Federal Confidentiality of Alcohol and Drug Abuse Patient Records regulations: The Federal rules restrict any use of the information to criminally investigate or prosecute any alcohol or drug abuse patient.[facility] HospitalIn the event this information is protected by the Federal Confidentiality of Alcohol and Drug Abuse Patient Records regulations: The Federal rules restrict any use of the information to criminally investigate or prosecute any alcohol or drug abuse patient.[facility] HospitalIn the event this information is protected by the Federal Confidentiality of Alcohol and Drug Abuse Patient Records regulations: The Federal rules restrict any use of the information to criminally investigate or prosecute any alcohol or drug abuse patient.[facility] HospitalIn the event this information is protected by the Federal Confidentiality of Alcohol and Drug Abuse Patient Records regulations: The Federal rules restrict any use of the information to criminally investigate or prosecute any alcohol or drug abuse patient.[facility] HospitalIn the event this information is protected by the Federal Confidentiality of Alcohol and Drug Abuse Patient Records regulations: The Federal rules restrict any use of the information to criminally investigate or prosecute any alcohol or drug abuse patient.[facility] HospitalIn the event this information is protected by the Federal Confidentiality of Alcohol and Drug Abuse Patient Records regulations: The Federal rules restrict any use of the information to criminally investigate or prosecute any alcohol or drug abuse patient.[facility] HospitalIn the event this information is protected by the Federal Confidentiality of Alcohol and Drug Abuse Patient Records regulations: The Federal rules restrict any use of the information to criminally investigate or prosecute any alcohol or drug abuse patient.[facility] HospitalIn the event this information is protected by the Federal Confidentiality of Alcohol and Drug Abuse Patient Records regulations: The Federal rules restrict any use of the information to criminally investigate or prosecute any alcohol or drug abuse patient.[facility] HospitalIn the event this information is protected by the Federal Confidentiality of Alcohol and Drug Abuse Patient Records regulations: The Federal rules restrict any use of the information to criminally investigate or prosecute any alcohol or drug abuse patient.[facility] HospitalIn the event this information is protected by the Federal Confidentiality of Alcohol and Drug Abuse Patient Records regulations: The Federal rules restrict any use of the information to criminally investigate or prosecute any alcohol or drug abuse patient.[facility] HospitalIn the event this information is protected by the Federal Confidentiality of Alcohol and Drug Abuse Patient Records regulations: The Federal rules restrict any use of the information to criminally investigate or prosecute any alcohol or drug abuse patient.[facility] HospitalIn the event this information is protected by the Federal Confidentiality of Alcohol and Drug Abuse Patient Records regulations: The Federal rules restrict any use of the information to criminally investigate or prosecute any alcohol or drug abuse patient.[facility] HospitalIn the event this information is protected by the Federal Confidentiality of Alcohol and Drug Abuse Patient Records regulations: The Federal rules restrict any use of the information to criminally investigate or prosecute any alcohol or drug abuse patient.[facility] HospitalIn the event this information is protected by the Federal Confidentiality of Alcohol and Drug Abuse Patient Records regulations: The Federal rules restrict any use of the information to criminally investigate or prosecute any alcohol or drug abuse patient.[facility] HospitalIn the event this information is protected by the Federal Confidentiality of Alcohol and Drug Abuse Patient Records regulations: The Federal rules restrict any use of the information to criminally investigate or prosecute any alcohol or drug abuse patient.[facility] HospitalIn the event this information is protected by the Federal Confidentiality of Alcohol and Drug Abuse Patient Records regulations: The Federal rules restrict any use of the information to criminally investigate or prosecute any alcohol or drug abuse patient.[facility] HospitalIn the event this information is protected by the Federal Confidentiality of Alcohol and Drug Abuse Patient Records regulations: The Federal rules restrict any use of the information to criminally investigate or prosecute any alcohol or drug abuse patient.[facility] HospitalIn the event this information is protected by the Federal Confidentiality of Alcohol and Drug Abuse Patient Records regulations: The Federal rules restrict any use of the information to criminally investigate or prosecute any alcohol or drug abuse patient.[facility] HospitalIn the event this information is protected by the Federal Confidentiality of Alcohol and Drug Abuse Patient Records regulations: The Federal rules restrict any use of the information to criminally investigate or prosecute any alcohol or drug abuse patient.[facility] HospitalIn the event this information is protected by the Federal Confidentiality of Alcohol and Drug Abuse Patient Records regulations: The Federal rules restrict any use of the information to criminally investigate or prosecute any alcohol or drug abuse patient.[facility] HospitalIn the event this information is protected by the Federal Confidentiality of Alcohol and Drug Abuse Patient Records regulations: The Federal rules restrict any use of the information to criminally investigate or prosecute any alcohol or drug abuse patient.[facility] HospitalIn the event this information is protected by the Federal Confidentiality of Alcohol and Drug Abuse Patient Records regulations: The Federal rules restrict any use of the information to criminally investigate or prosecute any alcohol or drug abuse patient.[facility] HospitalIn the event this information is protected by the Federal Confidentiality of Alcohol and Drug Abuse Patient Records regulations: The Federal rules restrict any use of the information to criminally investigate or prosecute any alcohol or drug abuse patient.[facility] HospitalIn the event this information is protected by the Federal Confidentiality of Alcohol and Drug Abuse Patient Records regulations: The Federal rules restrict any use of the information to criminally investigate or prosecute any alcohol or drug abuse patient.[facility] HospitalIn the event this information is protected by the Federal Confidentiality of Alcohol and Drug Abuse Patient Records regulations: The Federal rules restrict any use of the information to criminally investigate or prosecute any alcohol or drug abuse patient.[facility] HospitalIn the event this information is protected by the Federal Confidentiality of Alcohol and Drug Abuse Patient Records regulations: The Federal rules restrict any use of the information to criminally investigate or prosecute any alcohol or drug abuse patient.[facility] HospitalIn the event this information is protected by the Federal Confidentiality of Alcohol and Drug Abuse Patient Records regulations: The Federal rules restrict any use of the information to criminally investigate or prosecute any alcohol or drug abuse patient.[facility] HospitalIn the event this information is protected by the Federal Confidentiality of Alcohol and Drug Abuse Patient Records regulations: The Federal rules restrict any use of the information to criminally investigate or prosecute any alcohol or drug abuse patient.[facility] HospitalIn the event this information is protected by the Federal Confidentiality of Alcohol and Drug Abuse Patient Records regulations: The Federal rules restrict any use of the information to criminally investigate or prosecute any alcohol or drug abuse patient.[facility] HospitalIn the event this information is protected by the Federal Confidentiality of Alcohol and Drug Abuse Patient Records regulations: The Federal rules restrict any use of the information to criminally investigate or prosecute any alcohol or drug abuse patient.[facility] HospitalIn the event this information is protected by the Federal Confidentiality of Alcohol and Drug Abuse Patient Records regulations: The Federal rules restrict any use of the information to criminally investigate or prosecute any alcohol or drug abuse patient.[facility] HospitalIn the event this information is protected by the Federal Confidentiality of Alcohol and Drug Abuse Patient Records regulations: The Federal rules restrict any use of the information to criminally investigate or prosecute any alcohol or drug abuse patient.[facility] HospitalIn the event this information is protected by the Federal Confidentiality of Alcohol and Drug Abuse Patient Records regulations: The Federal rules restrict any use of the information to criminally investigate or prosecute any alcohol or drug abuse patient.[facility] HospitalIn the event this information is protected by the Federal Confidentiality of Alcohol and Drug Abuse Patient Records regulations: The Federal rules restrict any use of the information to criminally investigate or prosecute any alcohol or drug abuse patient.[facility] HospitalIn the event this information is protected by the Federal Confidentiality of Alcohol and Drug Abuse Patient Records regulations: The Federal rules restrict any use of the information to criminally investigate or prosecute any alcohol or drug abuse patient.[facility] HospitalIn the event this information is protected by the Federal Confidentiality of Alcohol and Drug Abuse Patient Records regulations: The Federal rules restrict any use of the information to criminally investigate or prosecute any alcohol or drug abuse patient.[facility] HospitalIn the event this information is protected by the Federal Confidentiality of Alcohol and Drug Abuse Patient Records regulations: The Federal rules restrict any use of the information to criminally investigate or prosecute any alcohol or drug abuse patient.[facility] HospitalIn the event this information is protected by the Federal Confidentiality of Alcohol and Drug Abuse Patient Records regulations: The Federal rules restrict any use of the information to criminally investigate or prosecute any alcohol or drug abuse patient.[facility] HospitalIn the event this information is protected by the Federal Confidentiality of Alcohol and Drug Abuse Patient Records regulations: The Federal rules restrict any use of the information to criminally investigate or prosecute any alcohol or drug abuse patient.[facility] HospitalIn the event this information is protected by the Federal Confidentiality of Alcohol and Drug Abuse Patient Records regulations: The Federal rules restrict any use of the information to criminally investigate or prosecute any alcohol or drug abuse patient.[facility] HospitalIn the event this information is protected by the Federal Confidentiality of Alcohol and Drug Abuse Patient Records regulations: The Federal rules restrict any use of the information to criminally investigate or prosecute any alcohol or drug abuse patient.[facility] HospitalIn the event this information is protected by the Federal Confidentiality of Alcohol and Drug Abuse Patient Records regulations: The Federal rules restrict any use of the information to criminally investigate or prosecute any alcohol or drug abuse patient.[facility] HospitalIn the event this information is protected by the Federal Confidentiality of Alcohol and Drug Abuse Patient Records regulations: The Federal rules restrict any use of the information to criminally investigate or prosecute any alcohol or drug abuse patient.[facility] HospitalIn the event this information is protected by the Federal Confidentiality of Alcohol and Drug Abuse Patient Records regulations: The Federal rules restrict any use of the information to criminally investigate or prosecute any alcohol or drug abuse patient.[facility] HospitalIn the event this information is protected by the Federal Confidentiality of Alcohol and Drug Abuse Patient Records regulations: The Federal rules restrict any use of the information to criminally investigate or prosecute any alcohol or drug abuse patient.[facility] HospitalIn the event this information is protected by the Federal Confidentiality of Alcohol and Drug Abuse Patient Records regulations: The Federal rules restrict any use of the information to criminally investigate or prosecute any alcohol or drug abuse patient.[facility] HospitalIn the event this information is protected by the Federal Confidentiality of Alcohol and Drug Abuse Patient Records regulations: The Federal rules restrict any use of the information to criminally investigate or prosecute any alcohol or drug abuse patient.[facility] HospitalIn the event this information is protected by the Federal Confidentiality of Alcohol and Drug Abuse Patient Records regulations: The Federal rules restrict any use of the information to criminally investigate or prosecute any alcohol or drug abuse patient.[facility] HospitalIn the event this information is protected by the Federal Confidentiality of Alcohol and Drug Abuse Patient Records regulations: The Federal rules restrict any use of the information to criminally investigate or prosecute any alcohol or drug abuse patient.[facility] HospitalIn the event this information is protected by the Federal Confidentiality of Alcohol and Drug Abuse Patient Records regulations: The Federal rules restrict any use of the information to criminally investigate or prosecute any alcohol or drug abuse patient.[facility] HospitalIn the event this information is protected by the Federal Confidentiality of Alcohol and Drug Abuse Patient Records regulations: The Federal rules restrict any use of the information to criminally investigate or prosecute any alcohol or drug abuse patient.[facility] HospitalIn the event this information is protected by the Federal Confidentiality of Alcohol and Drug Abuse Patient Records regulations: The Federal rules restrict any use of the information to criminally investigate or prosecute any alcohol or drug abuse patient.[facility] HospitalIn the event this information is protected by the Federal Confidentiality of Alcohol and Drug Abuse Patient Records regulations: The Federal rules restrict any use of the information to criminally investigate or prosecute any alcohol or drug abuse patient.[facility] HospitalIn the event this information is protected by the Federal Confidentiality of Alcohol and Drug Abuse Patient Records regulations: The Federal rules restrict any use of the information to criminally investigate or prosecute any alcohol or drug abuse patient.[facility] HospitalIn the event this information is protected by the Federal Confidentiality of Alcohol and Drug Abuse Patient Records regulations: The Federal rules restrict any use of the information to criminally investigate or prosecute any alcohol or drug abuse patient.[facility] HospitalIn the event this information is protected by the Federal Confidentiality of Alcohol and Drug Abuse Patient Records regulations: The Federal rules restrict any use of the information to criminally investigate or prosecute any alcohol or drug abuse patient.[facility] HospitalIn the event this information is protected by the Federal Confidentiality of Alcohol and Drug Abuse Patient Records regulations: The Federal rules restrict any use of the information to criminally investigate or prosecute any alcohol or drug abuse patient.[facility] HospitalIn the event this information is protected by the Federal Confidentiality of Alcohol and Drug Abuse Patient Records regulations: The Federal rules restrict any use of the information to criminally investigate or prosecute any alcohol or drug abuse patient.[facility] HospitalIn the event this information is protected by the Federal Confidentiality of Alcohol and Drug Abuse Patient Records regulations: The Federal rules restrict any use of the information to criminally investigate or prosecute any alcohol or drug abuse patient.[facility] HospitalIn the event this information is protected by the Federal Confidentiality of Alcohol and Drug Abuse Patient Records regulations: The Federal rules restrict any use of the information to criminally investigate or prosecute any alcohol or drug abuse patient.[facility] HospitalIn the event this information is protected by the Federal Confidentiality of Alcohol and Drug Abuse Patient Records regulations: The Federal rules restrict any use of the information to criminally investigate or prosecute any alcohol or drug abuse patient.[facility] HospitalIn the event this information is protected by the Federal Confidentiality of Alcohol and Drug Abuse Patient Records regulations: The Federal rules restrict any use of the information to criminally investigate or prosecute any alcohol or drug abuse patient.[facility] HospitalIn the event this information is protected by the Federal Confidentiality of Alcohol and Drug Abuse Patient Records regulations: The Federal rules restrict any use of the information to criminally investigate or prosecute any alcohol or drug abuse patient.[facility] HospitalIn the event this information is protected by the Federal Confidentiality of Alcohol and Drug Abuse Patient Records regulations: The Federal rules restrict any use of the information to criminally investigate or prosecute any alcohol or drug abuse patient.[facility] HospitalIn the event this information is protected by the Federal Confidentiality of Alcohol and Drug Abuse Patient Records regulations: The Federal rules restrict any use of the information to criminally investigate or prosecute any alcohol or drug abuse patient.[facility] HospitalIn the event this information is protected by the Federal Confidentiality of Alcohol and Drug Abuse Patient Records regulations: The Federal rules restrict any use of the information to criminally investigate or prosecute any alcohol or drug abuse patient.[facility] HospitalIn the event this information is protected by the Federal Confidentiality of Alcohol and Drug Abuse Patient Records regulations: The Federal rules restrict any use of the information to criminally investigate or prosecute any alcohol or drug abuse patient.[facility] HospitalIn the event this information is protected by the Federal Confidentiality of Alcohol and Drug Abuse Patient Records regulations: The Federal rules restrict any use of the information to criminally investigate or prosecute any alcohol or drug abuse patient.[facility] HospitalIn the event this information is protected by the Federal Confidentiality of Alcohol and Drug Abuse Patient Records regulations: The Federal rules restrict any use of the information to criminally investigate or prosecute any alcohol or drug abuse patient.[facility] HospitalIn the event this information is protected by the Federal Confidentiality of Alcohol and Drug Abuse Patient Records regulations: The Federal rules restrict any use of the information to criminally investigate or prosecute any alcohol or drug abuse patient.[facility] HospitalIn the event this information is protected by the Federal Confidentiality of Alcohol and Drug Abuse Patient Records regulations: The Federal rules restrict any use of the information to criminally investigate or prosecute any alcohol or drug abuse patient.[facility] HospitalIn the event this information is protected by the Federal Confidentiality of Alcohol and Drug Abuse Patient Records regulations: The Federal rules restrict any use of the information to criminally investigate or prosecute any alcohol or drug abuse patient.[facility] HospitalIn the event this information is protected by the Federal Confidentiality of Alcohol and Drug Abuse Patient Records regulations: The Federal rules restrict any use of the information to criminally investigate or prosecute any alcohol or drug abuse patient.[facility] HospitalIn the event this information is protected by the Federal Confidentiality of Alcohol and Drug Abuse Patient Records regulations: The Federal rules restrict any use of the information to criminally investigate or prosecute any alcohol or drug abuse patient.[facility] HospitalIn the event this information is protected by the Federal Confidentiality of Alcohol and Drug Abuse Patient Records regulations: The Federal rules restrict any use of the information to criminally investigate or prosecute any alcohol or drug abuse patient.[facility] HospitalIn the event this information is protected by the Federal Confidentiality of Alcohol and Drug Abuse Patient Records regulations: The Federal rules restrict any use of the information to criminally investigate or prosecute any alcohol or drug abuse patient.[facility] HospitalIn the event this information is protected by the Federal Confidentiality of Alcohol and Drug Abuse Patient Records regulations: The Federal rules restrict any use of the information to criminally investigate or prosecute any alcohol or drug abuse patient.[facility] HospitalIn the event this information is protected by the Federal Confidentiality of Alcohol and Drug Abuse Patient Records regulations: The Federal rules restrict any use of the information to criminally investigate or prosecute any alcohol or drug abuse patient.[facility] HospitalIn the event this information is protected by the Federal Confidentiality of Alcohol and Drug Abuse Patient Records regulations: The Federal rules restrict any use of the information to criminally investigate or prosecute any alcohol or drug abuse patient.[facility] HospitalIn the event this information is protected by the Federal Confidentiality of Alcohol and Drug Abuse Patient Records regulations: The Federal rules restrict any use of the information to criminally investigate or prosecute any alcohol or drug abuse patient.[facility] HospitalIn the event this information is protected by the Federal Confidentiality of Alcohol and Drug Abuse Patient Records regulations: The Federal rules restrict any use of the information to criminally investigate or prosecute any alcohol or drug abuse patient.[facility] HospitalIn the event this information is protected by the Federal Confidentiality of Alcohol and Drug Abuse Patient Records regulations: The Federal rules restrict any use of the information to criminally investigate or prosecute any alcohol or drug abuse patient.[facility] HospitalIn the event this information is protected by the Federal Confidentiality of Alcohol and Drug Abuse Patient Records regulations: The Federal rules restrict any use of the information to criminally investigate or prosecute any alcohol or drug abuse patient.[facility] HospitalIn the event this information is protected by the Federal Confidentiality of Alcohol and Drug Abuse Patient Records regulations: The Federal rules restrict any use of the information to criminally investigate or prosecute any alcohol or drug abuse patient.[facility] HospitalIn the event this information is protected by the Federal Confidentiality of Alcohol and Drug Abuse Patient Records regulations: The Federal rules restrict any use of the information to criminally investigate or prosecute any alcohol or drug abuse patient.[facility] HospitalIn the event this information is protected by the Federal Confidentiality of Alcohol and Drug Abuse Patient Records regulations: The Federal rules restrict any use of the information to criminally investigate or prosecute any alcohol or drug abuse patient.[facility] Reason for Visit (unrecogniz ed section and content) Reason Comments Physical Therapy Specialty Diagnoses / Procedures Referred By Contac t Referred To Contact [facility] Diagnoses Pelvic floor dysfunction in female Prolapse of intestine Urinary incontinence, unspecified type Procedures CONSULT TO PHYSICAL THERAPY PHYSICAL THERAPY EVALUATION HIGH COMPLEX 45 MINS Edenilson Nicholson, DO [address] [place] [address] [facility] [address] [place] [address] Referral ID Status Reason Start Date Expiration Date Visits Requested Visits Authorized [id number] Authorized Auto-Generat ed Referral 03/04/2021 03/03/2022 99 [...] NEW HIGH MDM 60-74 MINUTES Kandi Contreras, PARMJIT.BACKWINDER [address] [place] [address] [facility] [address] [place] [address] Referral ID Status Reason Start Date Expiration Date Visits Requested Visits Authorized [id number] Pending Review PCP Requested Referral 07/21/2021 07/21/2022 [...] Reason Comments ER F/U Reason Comments [place] [facility] [place] Reason Comments Established Patient [...] NEW HIGH MDM 60-74 MINUTES Johnie Aguirre, SITE IDENTIFICATION SPECIALIST.BACKWINDER [address] [place] [address] Referral ID Status Reason Start Date Expiration Date Visits Requested Visits Authorized [id number] Pending Review PCP Requested Referral 2 02/10/2023 1 1 Reason Comments Barky Cough x 3-4 days, frequent urination x this am Reason Comments Radio GI Main HB6 Specialty Diagnoses / Procedures Referred By Contac t Referred To Contact XR IMAGING Diagnoses Rectocele Enterocele Rectal prolapse Procedures XR DEFECOGRAPHY RADIOLOGIC EXAM COLON SINGLE CONTRAST STUDY Yi Gonsalves, SITE IDENTIFICATION SPECIALIST.BACKWINDER [address] [place] [address] Xr Imaging Referral ID Status Reason Start Date Expiration Date V isits Requested Visits Authorized [id number] Closed Auto-Generate d Referral 12/06/2021 01/05/2023 1 [...] NEW HIGH MDM 60-74 MINUTES Yi Gonsalves APRN.BACKWINDER [address] [place] [id number] Referral ID Status Reason Start Date Expiration Date Visits Requested Visits Authorized [id number] Pending Review PCP Requested Referral 12/06/2021 12/06/2022 1 1 Reason Comments Leg Pain 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 Aretha [...] & W/CONTRAST MATERIAL Edenilson Nicholson, DO [address] [place] [address] [place] [address] Referral ID Status Reason Start Date Expiration Date V isits Requested Visits Authorized [id number] Closed Auto-Generate d Referral 11/28/2022 12/28/2023 [address] Specialty Diagnoses / Procedures [facility] Contact [facility] Diagnoses Chronic cough Rales Procedures CT CHEST WO IVCON DIAGNOSTIC COMPUTED TOMOGRAPHY THORAX W/O CNTRST Edenilson Nicholson, DO [address] [place] [address] [place] [address] Referral ID Status Reason Start Date Expiration Date Visits Re quested Visits Authorized [id number] Closed 11/14/2022 12/29/2022 1 1 Specialty Diagnoses / Procedures [facility] To Contact CT IMAGING Diagnoses Short-term memory loss Word finding difficulty Procedures CT BRAIN WO IVCON CT HEAD/BRAIN W/O CONTRAST MATERIAL Edenilson Nicholson, DO [address] [place] [address] Ct Imaging [facility]95 Referral ID Status Reason Start Date Expiration Date V isits Requested Visits Authorized [id number] Closed Auto-Generate d Referral 08/01/2022 08/31/2023 1 [...] Question Specialty Diagnoses / Procedures [facility] Referred To Contact MR IMAGING Diagnoses Pancreas cyst Cystic mass of pancreas Abnormal MRI of abdomen Procedures MRI PANC/ARETHA WO/W IVCON MRI ABDOMEN W/O & W/CONTRAST MATERIAL Edenilson Nicholson, DO [address] [place] [address] [place] [address] Referral ID Status Reason Start Date Expiration Date V isits Requested Visits Authorized [id number] Closed Auto-Generate d Referral 05/20/2023 02/15/2024 1 [...] HAND MINIMUM [address] [place] [address] [place] [address] [place] [address] Referral ID Status Reason Start Date Expiration Date V isits Requested Visits Authorized [id number] Closed Auto-Generate d Referral 05/02/2021 06/01/2022 1 [...] EVALUATION HIGH COMPLEX 45 MINS Angeline Monterroso APRN.BACKWINDER [address] [place] [address] [facility] [place] [address] [place] [address] Referral ID Status Reason Start Date Expiration Date Visits Requested Visits Authorized [id number] Authorized Auto-Generat ed Referral 03/04/2024 03/03/2025 99 [...] Care Teams (unrecognized sec tion and content) Classified Copy Control Clerk Relationship Specialty Start Date End Date Edenilson Nicholson DO [address] [place] [address] PCP - General Family Practice 05/23/16 Ino Purdy MD [address] [place] [address] Home Care Physician Orthopedics 03/29/20 Fermín Cartwright MD [address] [place] [address] Referring Orthopedics 03/29/20 Magnolia Preciado, PT [address] [place] [address] Chemical Engineering Technician Post Acute Care 03/29/20 Classified Copy Control Clerk Relationship Specialty Start Date End Date Edenilson Nicholson DO [address] [place], [place] [id number] PCP - General Family Practice 05/23/16 Ino Purdy MD [address] [place] [address] Home Care Physician Orthopedics 03/29/20 Fermín Cartwright MD [address] [place] [address] Referring Orthopedics 03/29/20 Magnolia Preciado, PT [address] [place] [address] Chemical Engineering Technician Post Acute Care 03/29/20 Classified Copy Control Clerk Relationship Specialty Start Date End Date Edenilson Nicholson, DO [address] [place] [address] PCP - General Family Practice 05/23/16 Ino Purdy MD [address] [place] [address] Home Care Physician Orthopedics 03/29/20 Fermín Cartwright MD [address] [place] [address] Referring Orthopedics 03/29/20 Magnolia Preciado, PT [address] [place] [address] Chemical Engineering Technician Post Acute Care 03/29/20 Classified Copy Control Clerk Relationship Specialty Start Date End Date Edenilson Nicholson, DO [address] [place] [address] PCP - General Family Practice 05/23/16 Ino Purdy MD [address] [facility] [place] [address] Home Care Physician Orthopedics 03/29/20 Fermín Cartwright MD [address] [place] [address] Referring Orthopedics 03/29/20 Magnolia Preciado, PT [address] [place] [address] Chemical Engineering Technician Post Acute Care 03/29/20 Classified Copy Control Clerk Relationship Specialty Start Date End Date Edenilson Nicholson, DO [address] [place] [address] PCP - General Family Practice 05/23/16 Ino Purdy MD [address] [place] [address] Home Care Physician Orthopedics 03/29/20 Fermín Cartwright MD [address] [place] [address] Referring Orthopedics 03/29/20 Magnolia Preciado, PT [address] [place] [address] Chemical Engineering Technician Post Acute Care 03/29/20 Classified Copy Control Clerk Relationship Specialty Start Date End Date Edenilson Nicholson, DO [address] [place] [address] PCP - General Family Practice 05/23/16 Ino Purdy MD [address] [place] [address] Home Care Physician Orthopedics 03/29/20 Fermín Cartwright MD [address] [place] [address] Referring Orthopedics 03/29/20 Magnolia Preciado, PT [address] [place] [address] Chemical Engineering Technician Post Acute Care 03/29/20 Classified Copy Control Clerk Relationship Specialty Start Date End Date Edenilson Nicholson, DO [address] [place] [address] PCP - General Family Practice 05/23/16 Ino Purdy MD [address] [place] [address] Home Care Physician Orthopedics 03/29/20 Fermín Cartwright MD [address] [place] [address] Referring Orthopedics 03/29/20 Magnolia Preciado, PT [address] [place] [address] Chemical Engineering Technician Post Acute Care 03/29/20 Classified Copy Control Clerk Relationship Specialty Start Date End Date Edenilson Nicholson, DO [address] [place] [address] PCP - General Family Practice 05/23/16 Ino Purdy MD [address] [place] [address] Home Care Physician Orthopedics 03/29/20 Fermín Cartwright MD [address] [place] [address] Referring Orthopedics 03/29/20 Magnolia Preciado, PT [address] [place] [address] Chemical Engineering Technician Post Acute Care 03/29/20 Classified Copy Control Clerk Relationship Specialty Start Date End Date Edenilson Nicholson, DO [address] [place] [address] PCP - General Family Practice 05/23/16 Ino Purdy MD [address] [place] [address] Home Care Physician Orthopedics 03/29/20 Fermín Cartwright MD [address] [place] [address] Referring Orthopedics 03/29/20 Magnolia Preciado, PT [address] [place] [address] Chemical Engineering Technician Post Acute Care 03/29/20 Classified Copy Control Clerk Relationship Specialty Start Date End Date Edenilson Nicholson, DO [address] [place] [address] PCP - General Family Practice 05/23/16 Ino Purdy MD [address] [place] [address] Home Care Physician Orthopedics 03/29/20 Fermín Cartwright MD [address] [place] [address] Referring Orthopedics 03/29/20 Magnolia Preciado, PT [address] [place] [address] Chemical Engineering Technician Post Acute Care 03/29/20 Classified Copy Control Clerk Relationship Specialty Start Date End Date Edenilson Nicholson, DO [address] [place] [address] PCP - General Family Practice 05/23/16 Ino Purdy MD [address] [place] [address] Home Care Physician Orthopedics 03/29/20 Fermín Cartwright MD [address] [place] [address] Referring Orthopedics 03/29/20 Magnolia Preciado, PT [address] [place] [address] Chemical Engineering Technician Post Acute Care 03/29/20 Classified Copy Control Clerk Relationship Specialty Start Date End Date Edenilson Nicholson, DO [address] [place] [address] PCP - General Family Practice 05/23/16 Ino Purdy MD [address] [facility] [place] [address] Home Care Physician Orthopedics 03/29/20 Fermín Cartwright MD [address] [place] [address] Referring Orthopedics 03/29/20 Magnolia Preciado, PT [address] [place] [address] Chemical Engineering Technician Post Acute Care 03/29/20 Classified Copy Control Clerk Relationship Specialty Start Date End Date Edenilson Nicholson, DO [address] [place] [address] PCP - General Family Practice 05/23/16 Ino Purdy MD [address] [place] [address] Home Care Physician Orthopedics 03/29/20 Fermín Cartwright MD [address] [place] [address] Referring Orthopedics 03/29/20 Magnolia Preciado, PT [address] [place] [address] Chemical Engineering Technician Post Acute Care 03/29/20 Classified Copy Control Clerk Relationship Specialty Start Date End Date Edenilson Nicholson, DO [address] [place] [address] PCP - General Family Practice 05/23/16 Ino Purdy MD [address] [place] [address] Home Care Physician Orthopedics 03/29/20 Fermín Cartwright MD [address] [place] [address] Referring Orthopedics 03/29/20 Magnolia Preciado, PT [address] [place] [address] Chemical Engineering Technician Post Acute Care 03/29/20 Classified Copy Control Clerk Relationship Specialty Start Date End Date Edenilson Nicholson DO [address] [place] [address] PCP - General Family Practice 05/23/16 Ino Purdy MD [address] [place] [address] Home Care Physician Orthopedics 03/29/20 Fermín Cartwright MD [address] [place] [address] Referring Orthopedics 03/29/20 Magnolia Preciado, PT [address] [place] [address] Chemical Engineering Technician Post Acute Care 03/29/20 Classified Copy Control Clerk Relationship Specialty Start Date End Date Edenilson Nicholson DO [address] [place] [address] PCP - General Family Practice 05/23/16 Ino Purdy MD [address] [place] [address] Home Care Physician Orthopedics 03/29/20 Fermín Cartwright MD [address] [place] [address] Referring Orthopedics 03/29/20 Magnolia Preciado, PT [address] [place] [address] Chemical Engineering Technician Post Acute Care 03/29/20 Classified Copy Control Clerk Relationship Specialty Start Date End Date Edenilson Nicholson, DO [address] [place] [address] PCP - General Family Practice 05/23/16 Ino Purdy MD [address] [place] [address] Home Care Physician Orthopedics 03/29/20 Fermín Cartwright MD [address] [place] [address] Referring Orthopedics 03/29/20 Magnolia Preciado, PT [address] [place] [address] Chemical Engineering Technician Post Acute Care 03/29/20 Classified Copy Control Clerk Relationship Specialty Start Date End Date Edenilson Nicholson, DO [address] [place] [address] PCP - General Family Practice 05/23/16 Ino Purdy MD [address] [place] [address] Home Care Physician Orthopedics 03/29/20 Fermín Cartwright MD [address] [place] [address] Referring Orthopedics 03/29/20 Magnolia Preciado, PT [address] [place] [address] Chemical Engineering Technician Post Acute Care 03/29/20 Classified Copy Control Clerk Relationship Specialty Start Date End Date Edenilson Nicholson, DO [address] [place] [address] PCP - General Family Practice 05/23/16 Ino Purdy MD [address] [place] [address] Home Care Provider Orthopedics 03/29/20 Fermín Cartwright MD [address] [place] [address] Referring Orthopedics 03/29/20 Magnolia Preciado, PT [address] [place] [address] Chemical Engineering Technician Post Acute Care 03/29/20 Classified Copy Control Clerk Relationship Specialty Start Date End Date Edenilson Nicholson, DO [address] [place] [address] PCP - General Family Medicine 05/23/16 Ino Purdy MD [address] [place] [address] Home Care Provider Orthopedics 03/29/20 Fermín Cartwright MD [address] [place] [address] Referring Orthopedics 03/29/20 Magnolia Preciado, PT [address] [place] [address] Chemical Engineering Technician Post Acute Care 03/29/20 Classified Copy Control Clerk Relationship Specialty Start Date End Date Edenilson Nicholson, DO [address] [facility] [place] [address] PCP - General Family Medicine 05/23/16 Ino Purdy MD [address] [place] [address] Home Care Provider Orthopedics 03/29/20 Fermín Cartwright MD [address] [place] [address] Referring Orthopedics 03/29/20 Magnolia Preciado, PT [address] [place] [address] Chemical Engineering Technician Post Acute Care 03/29/20 Classified Copy Control Clerk Relationship Specialty Start Date End Date Edenilson Nicholson, DO [address] [place] [address] PCP - General Family Medicine 05/23/16 Ino Purdy MD [address] [place] [address] Home Care Provider Orthopedics 03/29/20 Fermín Cartwright MD [address] [place] [address] Referring Orthopedics 03/29/20 Magnolia Preciado, PT [address] [place] [address] Chemical Engineering Technician Post Acute Care 03/29/20 Classified Copy Control Clerk Relationship Specialty Start Date End Date Edenilson Nicholson, DO [address] [place] [address] PCP - General Family Medicine 05/23/16 Ino Purdy MD [address] [place] [address] Home Care Provider Orthopedics 03/29/20 Fermín Cartwright MD [address] [place] [address] Referring Orthopedics 03/29/20 Magnolia Preciado, PT [address] [place] [address] Chemical Engineering Technician Post Acute Care 03/29/20 Classified Copy Control Clerk Relationship Specialty Start Date End Date Edenilson Nicholson, DO [address] [place] [address] PCP - General Family Medicine 05/23/16 Ino Purdy MD [address] [place] [address] Home Care Provider Orthopedics 03/29/20 Fermín Cartwright MD [address] [place] [address] Referring Orthopedics 03/29/20 Magnolia Preciado, PT [address] [place] [address] Chemical Engineering Technician Post Acute Care 03/29/20 Classified Copy Control Clerk Relationship Specialty Start Date End Date Edenilson Nicholson, DO [address] [place] [address] PCP - General Family Medicine 05/23/16 Ino Purdy MD [address] [place] [address] Home Care Provider Orthopedics 03/29/20 Fermín Cartwright MD [address] [place] [address] Referring Orthopedics 03/29/20 Magnolia Preciado, PT [address] [place] [address] Chemical Engineering Technician Post Acute Care 03/29/20 Classified Copy Control Clerk Relationship Specialty Start Date End Date Edenilson Nicholson, DO [address] [place] [address] PCP - General Family Medicine 05/23/16 Ino Purdy MD [address] [place] [address] Home Care Provider Orthopedics 03/29/20 Fermín Cartwright MD [address] [place] [address] Referring Orthopedics 03/29/20 Magnolia Preciado, PT [address] [place] [address] Chemical Engineering Technician Post Acute Care 03/29/20 Classified Copy Control Clerk Relationship Specialty Start Date End Date Edenilson Nicholson, DO [address] [place] [address] PCP - General Family Medicine 05/23/16 Ino Purdy MD [address] [place] [address] Home Care Provider Orthopedics 03/29/20 Fermín Cartwright MD [address] [place] [address] Referring Orthopedics 03/29/20 Magnolia Preciado, PT [address] [facility] [place] [address] Chemical Engineering Technician Post Acute Care 03/29/20 Classified Copy Control Clerk Relationship Specialty Start Date End Date Edenilson Nicholson, DO [address] [place] [address] PCP - General Family Medicine 05/23/16 Ino Purdy MD [address] [place] [address] Home Care Provider Orthopedics 03/29/20 Fermín Cartwright MD [address] [place] [address] Referring Orthopedics 03/29/20 Magnolia Preciado, PT [address] [place] [address] Chemical Engineering Technician Post Acute Care 03/29/20 Classified Copy Control Clerk Relationship Specialty Start Date End Date Edenilson Nicholson, DO [address] [place] [address] PCP - General Family Medicine 05/23/16 Ino Purdy MD [address] [place] [address] Home Care Provider Orthopedics 03/29/20 Fermín Cartwright MD [address] [place] [address] Referring Orthopedics 03/29/20 Magnolia Preciado, PT [address] [place] [address] Chemical Engineering Technician Post Acute Care 03/29/20 Classified Copy Control Clerk Relationship Specialty Start Date End Date Edenilson Nicholson, DO [address] [place] [address] PCP - General Family Medicine 05/23/16 Ino Purdy MD [address] [place] [address] Home Care Provider Orthopedics 03/29/20 Fermín Cartwright MD [address] [place] [address] Referring Orthopedics 03/29/20 Magnolia Preciado, PT [address] [place] [address] Chemical Engineering Technician Post Acute Care 03/29/20 Classified Copy Control Clerk Relationship Specialty Start Date End Date Edenilson Nicholson, DO [address] [place] [address] PCP - General Family Medicine 05/23/16 Ino Purdy MD [address] [place] [address] Home Care Provider Orthopedics 03/29/20 Fermín Cartwright MD [address] [place] [address] Referring Orthopedics 03/29/20 Magnolia Preciado, PT [address] [place] [address] Chemical Engineering Technician Post Acute Care 03/29/20 Classified Copy Control Clerk Relationship Specialty Start Date End Date Edenilson Nicholson, DO [address] [place] [address] PCP - General Family Medicine 05/23/16 Ino Purdy MD [address] [place] [address] Home Care Provider Orthopedics 03/29/20 Fermín Cartwright MD [address] [place] [address] Referring Orthopedics 03/29/20 Magnloia Preciado, PT [address] [place] [address] Chemical Engineering Technician Post Acute Care 03/29/20 Classified Copy Control Clerk Relationship Specialty Start Date End Date Edenilson Nicholson, DO [address] [place] [address] PCP - General Family Medicine 05/23/16 Ino Purdy MD [address] [facility] [place] [address] Home Care Provider Orthopedics 03/29/20 Fermín Cartwright MD [address] [place] [address] Referring Orthopedics 03/29/20 Magnolia Preciado, PT [address] [place] [address] Chemical Engineering Technician Post Acute Care 03/29/20 Classified Copy Control Clerk Relationship Specialty Start Date End Date Edenilson Nicholson, DO [address] [place] [address] PCP - General Family Medicine 05/23/16 Ino Purdy MD [address] [place] [address] Home Care Provider Orthopedics 03/29/20 Fermín Cartwright MD [address] [place] [address] Referring Orthopedics 03/29/20 Magnolia Preciado, PT [address] [place] [address] Chemical Engineering Technician Post Acute Care 03/29/20 Classified Copy Control Clerk Relationship Specialty Start Date End Date Edenilson Nicholson, DO [address] [place] [address] PCP - General Family Medicine 05/23/16 Ino Purdy MD [address] [place] [address] Home Care Provider Orthopedics 03/29/20 Fermín Cartwright MD [address] [place] [address] Referring Orthopedics 03/29/20 Magnolia Preciado, PT [address] [place] [address] Chemical Engineering Technician Post Acute Care 03/29/20 Team Status: Active Member Role Status Dates Dr. Edenilson Nicholson , Family Provider Active Dr. Edenilson Nicholson DO Primary Care Provider Active Team Status: Inactive Member Role Status Dates Dr. Edenilson Nicholson , DO Primary Care Provider Active Dr. Dina Olea MD Attending Provider, Referring Provider Active Classified Copy Control Clerk Relationship Specialty Start Date End Date Edenilson Nicholson, DO [address] [place] [address] PCP - General Family Medicine 05/23/16 Ino Purdy MD [address] [place] [address] Home Care Provider Orthopedics 03/29/20 Fermín Cartwright MD [address] [place] [address] Referring Orthopedics 03/29/20 Magnolia Preciado, PT [address] [place] [address] Chemical Engineering Technician Post Acute Care 03/29/20 Classified Copy Control Clerk Relationship Specialty Start Date End Date Edenilson Nicholson DO [address] [place] [address] PCP - General Family Medicine 05/23/16 Ino Purdy MD [address] [facility] [place] [address] Home Care Provider Orthopedics 03/29/20 Fermín Cartwright MD [address] [place] [address] Referring Orthopedics 03/29/20 Magnolia Preciado, PT [address] [place] [address] Chemical Engineering Technician Post Acute Care 03/29/20 Classified Copy Control Clerk Relationship Specialty Start Date End Date Edenilson Nicholson DO [address] [place] [address] PCP - General Family Medicine 05/23/16 Ino Purdy MD [address] [place] [address] Home Care Provider Orthopedics 03/29/20 Fermín Cartwright MD [address] [place] [address] Referring Orthopedics 03/29/20 Magnolia Preciado, PT [address] [place] [address] Chemical Engineering Technician Post Acute Care 03/29/20 Classified Copy Control Clerk Relationship Specialty Start Date End Date Edenilson Nicholson, DO [address] [place] [address] PCP - General Family Medicine 05/23/16 Ino Purdy MD [address] [place] [address] Home Care Provider Orthopedics 03/29/20 Fermín Cartwright MD [address] [place] [address] Referring Orthopedics 03/29/20 Magnolia Preciado, PT [address] [place] [address] Chemical Engineering Technician Post Acute Care 03/29/20 Classified Copy Control Clerk Relationship Specialty Start Date End Date Edenilson Nicholson, DO [address] [place] [address] PCP - General Family Medicine 05/23/16 Ino Purdy MD [address] [place] [address] Home Care Provider Orthopedics 03/29/20 Fermín Cartwright MD [address] [place] [address] Referring Orthopedics 03/29/20 Magnolia Preciado, PT [address] [place] [address] Chemical Engineering Technician Post Acute Care 03/29/20 Classified Copy Control Clerk Relationship Specialty Start Date End Date Edenilson Nicholson DO [address] [place] [address] PCP - General Family Medicine 05/23/16 Ino Purdy MD [address] [place] [address] Home Care Provider Orthopedics 03/29/20 Fermín Cartwright MD [address] [place] [address] Referring Orthopedics 03/29/20 Magnolia Preciado, PT [address] [place] [address] Chemical Engineering Technician Post Acute Care 03/29/20 Classified Copy Control Clerk Relationship Specialty Start Date End Date Edenilson Nicholson DO [address] [place] [address] PCP - General Family Medicine 05/23/16 Ino Purdy MD [address] [place] [address] Home Care Provider Orthopedics 03/29/20 Fermín Cartwright MD [address] [place] [address] Referring Orthopedics 03/29/20 Magnolia Preciado, PT [address] [place] [address] Chemical Engineering Technician Post Acute Care 03/29/20 Team Status: Inactive Member Role Status Dates Dr. Edenilson Nicholson DO Primary Care Provider Active Dr. Dina Olea MD Attending Provider Active Classified Copy Control Clerk Relationship Specialty Start Date End Date Edenilson Nicholson DO [address] [place] [address] PCP - General Family Medicine 05/23/16 Ino Purdy MD [address] [place] [address] Home Care Provider Orthopedics 03/29/20 Fermín Cartwright MD [address] [place] [address] Referring Orthopedics 03/29/20 Magnolia Preciado, PT [address] [place] [address] Chemical Engineering Technician Post Acute Care 03/29/20 Classified Copy Control Clerk Relationship Specialty Start Date End Date Edenilson Nicholson DO [address] [place] [address] PCP - General Family Medicine 05/23/16 Ino Purdy MD [address] [place] [address] Home Care Provider Orthopedics 03/29/20 Fermín Cartwright MD [address] [place] [address] Referring Orthopedics 03/29/20 Magnolia Preciado, PT [address] [place] [address] Chemical Engineering Technician Post Acute Care 03/29/20 Classified Copy Control Clerk Relationship Specialty Start Date End Date Edenilson Nicholson DO [address] [place] [address] PCP - General Family Medicine 05/23/16 Ino Purdy MD [address] [place] [address] Home Care Provider Orthopedics 03/29/20 Fermín Cartwright MD [address] [place] [address] Referring Orthopedics 03/29/20 Magnolia Preciado, PT [address] [place] [address] Chemical Engineering Technician Post Acute Care 03/29/20 Classified Copy Control Clerk Relationship Specialty Start Date End Date Edenilson Nicholson DO [address] [place] [address] PCP - General Family Medicine 05/23/16 Ino Purdy MD [address] [place] [address] Home Care Provider Orthopedics 03/29/20 Fermín Cartwright MD [address] [place] [address] Referring Orthopedics 03/29/20 Magnolia Preciado, PT [address] [place] [address] Chemical Engineering Technician Post Acute Care 03/29/20 Classified Copy Control Clerk Relationship Specialty Start Date End Date Edenilson Nicholson DO [address] [place] [address] PCP - General Family Medicine 05/23/16 Ino Purdy MD [address] [place] [address] Home Care Provider Orthopedics 03/29/20 Fermín Cartwright MD [address] [place] [address] Referring Orthopedics 03/29/20 Magnolia Preciado, PT [address] [place] [address] Chemical Engineering Technician Post Acute Care 03/29/20 Classified Copy Control Clerk Relationship Specialty Start Date End Date Edenilson Nicholson DO [address] [place] [address] PCP - General Family Medicine 05/23/16 Ino Purdy MD [address] [place] [address] Home Care Provider Orthopedics 03/29/20 Fermín Cartwright MD [address] [place] [address] Referring Orthopedics 03/29/20 Magnolia Preciado, PT [address] [facility] [place] [address] Chemical Engineering Technician Post Acute Care 03/29/20 Classified Copy Control Clerk Relationship Specialty Start Date End Date Edenilson Nicholson DO [address] [place] [address] PCP - General Family Medicine 05/23/16 Ino Purdy MD [address] [place] [address] Home Care Provider Orthopedics 03/29/20 Fermín Cartwright MD [address] [place] [address] Referring Orthopedics 03/29/20 Magnolia Preciado, PT [address] [place] [address] Chemical Engineering Technician Post Acute Care 03/29/20 Classified Copy Control Clerk Relationship Specialty Start Date End Date Edenilson Nicholson DO [address] [place] [address] PCP - General Family Medicine 05/23/16 Ino Purdy MD [address] [place] [address] Home Care Provider Orthopedics 03/29/20 Fermín Cartwright MD [address] [place] [address] Referring Orthopedics 03/29/20 Magnolia Preciado, PT [address] [facility] [place] [address] Chemical Engineering Technician Post Acute Care 03/29/20 Classified Copy Control Clerk Relationship Specialty Start Date End Date Edenilson Nicholson DO [address] [place] [address] PCP - General Family Medicine 05/23/16 Ino Purdy MD [address] [facility] [place] [address] Home Care Provider Orthopedics 03/29/20 Fermín Cartwright MD [address] [place] [address] Referring Orthopedics 03/29/20 Magnolia Preciado, PT [address] [place] [address] Chemical Engineering Technician Post Acute Care 03/29/20 Classified Copy Control Clerk Relationship Specialty Start Date End Date Edenilson Nicholson DO [address] [place] [address] PCP - General Family Medicine 05/23/16 Ino Purdy MD [address] [place] [address] Home Care Provider Orthopedics 03/29/20 Fermín Cartwright MD [address] [place] [address] Referring Orthopedics 03/29/20 Magnolia Preciado, PT [address] [place] [address] Chemical Engineering Technician Post Acute Care 03/29/20 Classified Copy Control Clerk Relationship Specialty Start Date End Date Edenilson Nicholson DO [address] [place] [address] PCP - General Family Medicine 05/23/16 Ino Purdy MD [address] [place] [address] Home Care Provider Orthopedics 03/29/20 Fermín Cartwright MD [address] [place] [address] Referring Orthopedics 03/29/20 SashaRoblesIza Magnolia, PT [address] [place] [address] Chemical Engineering Technician Post Acute Care 03/29/20 12/10/22 Classified Copy Control Clerk Relationship Specialty Start Date End Date Edenilson Nicholson DO [address] [place] [address] PCP - General Family Medicine 05/23/16 Ino Purdy MD [address] [place] [address] Home Care Provider Orthopedics 03/29/20 Fermín Cartwright MD [address] [place] [address] Referring Orthopedics 03/29/20 Classified Copy Control Clerk Relationship Specialty Start Date End Date Edenilson Nicholson DO [address] [place] [address] PCP - General Family Medicine 05/23/16 Ino Purdy MD [address] [place] [address] Home Care Provider Orthopedics 03/29/20 Fermín Cartwright MD [address] [place] [address] Referring Orthopedics 03/29/20 Classified Copy Control Clerk Relationship Specialty Start Date End Date Edenilson Nicholson DO [address] [place] [address] PCP - General Family Medicine 05/23/16 Ino Purdy MD [address] [place] [address] Home Care Provider Orthopedics 03/29/20 Fermín Cartwright MD [address] [place] [address] Referring Orthopedics 03/29/20 Magnolia Preciado, PT [address] [place] [address] Chemical Engineering Technician Post Acute Care 03/29/20 12/10/22 Classified Copy Control Clerk Relationship Specialty Start Date End Date Edenilson Nicholson DO [address] [place] [address] PCP - General Family Medicine 05/23/16 Ino Purdy MD [address] [place] [address] Home Care Provider Orthopedics 03/29/20 Fermín Cartwright MD [address] [place] [address] Referring Orthopedics 03/29/20 Magnolia Preciado, PT [address] [place] [address] Chemical Engineering Technician Post Acute Care 03/29/20 12/10/22 Classified Copy Control Clerk Relationship Specialty Start Date End Date Edenilson Nicholson DO [address] [place] [address] PCP - General Family Medicine 05/23/16 Ino Purdy MD [address] [place] [address] Home Care Provider Orthopedics 03/29/20 Fermín Cartwright MD [address] [place] [address] Referring Orthopedics 03/29/20 Magnolia Preciado, PT [address] [place] [address] Chemical Engineering Technician Post Acute Care 03/29/20 12/10/22 Classified Copy Control Clerk Relationship Specialty Start Date End Date Edenilson Nicholson DO [address] [place] [address] PCP - General Family Medicine 05/23/16 Ino Purdy MD [address] [place] [address] Home Care Provider Orthopedics 03/29/20 Fermín Cartwright MD [address] [place] [address] Referring Orthopedics 03/29/20 Magnolia Preciado, PT [address] [place] [address] Chemical Engineering Technician Post Acute Care 03/29/20 12/10/22 Classified Copy Control Clerk Relationship Specialty Start Date End Date Edenilson Nicholson DO [address] [place] [address] PCP - General Family Medicine 05/23/16 Ino Purdy MD [address] [place] [address] Home Care Provider Orthopedics 03/29/20 Fermín Cartwright MD [address] [place] [address] Referring Orthopedics 03/29/20 Classified Copy Control Clerk Relationship Specialty Start Date End Date Edenilson Nicholson DO [address] [place] [address] PCP - General Family Medicine 05/23/16 Ino Purdy MD [address] [place] [address] Home Care Provider Orthopedics 03/29/20 Fermín Cartwright MD [address] [place] [address] Referring Orthopedics 03/29/20 Classified Copy Control Clerk Relationship Specialty Start Date End Date Edenilson Nicholson DO [address] [place] [address] PCP - General Family Medicine 05/23/16 Ino Purdy MD [address] [place] [address] Home Care Provider Orthopedics 03/29/20 Fermín Cartwright MD [address] [place] [address] Referring Orthopedics 03/29/20 Classified Copy Control Clerk Relationship Specialty Start Date End Date Edenilson Nicholson DO [address] [place] [address] PCP - General Family Medicine 05/23/16 Ino Purdy MD [address] [place] [address] Home Care Provider Orthopedics 03/29/20 Fermín Cartwright MD [address] [place] [address] Referring Orthopedics 03/29/20 Classified Copy Control Clerk Relationship Specialty Start Date End Date Edenilson Nicholson DO [address] [place] [address] PCP - General Family Medicine 05/23/16 Ino Purdy MD [address] [place] [address] Home Care Provider Orthopedics 03/29/20 Fermín Cartwright MD [address] [place] [address] Referring Orthopedics 03/29/20 Classified Copy Control Clerk Relationship Specialty Start Date End Date Edenilson Nicholson DO [address] [place] [address] PCP - General Family Medicine 05/23/16 Ino Purdy MD [address] [facility] [place] [address] Home Care Provider Orthopedics 03/29/20 Fermín Cartwright MD [address] [place] [address] Referring Orthopedics 03/29/20 Classified Copy Control Clerk Relationship Specialty Start Date End Date Edenilson Nicholson DO [address] [place] [address] PCP - General Family Medicine 05/23/16 Ino Purdy MD [address] [place] [address] Home Care Provider Orthopedics 03/29/20 Fermín Cartwright MD [address] [place] [address] Referring Orthopedics 03/29/20 Classified Copy Control Clerk Relationship Specialty Start Date End Date Edenilson Nicholson DO [address] [place] [address] PCP - General Family Medicine 05/23/16 Ino Purdy MD [address] [place] [address] Home Care Provider Orthopedics 03/29/20 Fermín Cartwright MD [address] [place] [address] Referring Orthopedics 03/29/20 Classified Copy Control Clerk Relationship Specialty Start Date End Date Edenilson Nicholson DO [address] [place] [address] PCP - General Family Medicine 05/23/16 Ino Purdy MD [address] [place] [address] Home Care Provider Orthopedics 03/29/20 Fermín Cartwright MD [address] [place] [address] Referring Orthopedics 03/29/20 Classified Copy Control Clerk Relationship Specialty Start Date End Date Edenilson Nicholson DO [address] [place] [address] PCP - General Family Medicine 05/23/16 Ino Purdy MD [address] [place] [address] Home Care Provider Orthopedics 03/29/20 Fermín Cartwright MD [address] [place] [address] Referring Orthopedics 03/29/20 Classified Copy Control Clerk Relationship Specialty Start Date End Date Edenilson Nicholson DO [address] [place] [address] PCP - General Family Medicine 05/23/16 Ino Purdy MD [address] [place] [address] Home Care Provider Orthopedics 03/29/20 Fermín Cartwright MD [address] [place] [address] Referring Orthopedics 03/29/20 Classified Copy Control Clerk Relationship Specialty Start Date End Date Edenilson Nicholson DO [address] [place] [address] PCP - General Family Medicine 05/23/16 Ino Purdy MD [address] [place] [address] Home Care Provider Orthopedics 03/29/20 Fermín Cartwright MD [address] [place] [address] Referring Orthopedics 03/29/20 Classified Copy Control Clerk Relationship Specialty Start Date End Date Edenilson Nicholson DO [address] [place] [address] PCP - General Family Medicine 05/23/16 Ino Purdy MD [address] [place] [address] Home Care Provider Orthopedics 03/29/20 Fermín Cartwright MD [address] [place] [address] Referring Orthopedics 03/29/20 Classified Copy Control Clerk Relationship Specialty Start Date End Date Edenilson Nicholson DO [address] [place] [address] PCP - General Family Medicine 05/23/16 Ino Purdy MD [address] [place] [address] Home Care Provider Orthopedics 03/29/20 Fermín Cartwright MD [address] [place] [address] Referring Orthopedics 03/29/20 Classified Copy Control Clerk Relationship Specialty Start Date End Date Edenilson Nicholson DO [address] [place] [address] PCP - General Family Medicine 05/23/16 Ino Purdy MD [address] [place] [address] Home Care Provider Orthopedics 03/29/20 Fermín Cartwright MD [address] [place] [address] Referring Orthopedics 03/29/20 Classified Copy Control Clerk Relationship Specialty Start Date End Date Edenilson Nicholson DO [address] [place] [address] PCP - General Family Medicine 05/23/16 Ino Purdy MD [address] [facility] [place] [address] Home Care Provider Orthopedics 03/29/20 Fermín Cartwright MD [address] [place] [address] Referring Orthopedics 03/29/20 Classified Copy Control Clerk Relationship Specialty Start Date End Date Edenilson Nicholson DO [address] [place] [address] PCP - General Family Medicine 05/23/16 Ino Purdy MD [address] [facility] [place] [address] Home Care Provider Orthopedics 03/29/20 Fermín Cartwright MD [address] [place] [address] Referring Orthopedics 03/29/20 Classified Copy Control Clerk Relationship Specialty Start Date End Date Edenilson Nicholson DO [address] [place] [address] PCP - General Family Medicine 05/23/16 Ino Purdy MD [address] [facility] [place] [address] Home Care Provider Orthopedics 03/29/20 Fermín Cartwright MD [address] [place] [address] Referring Orthopedics 03/29/20 Classified Copy Control Clerk Relationship Specialty Start Date End Date Edenilson Nicholson DO [address] [place] [address] PCP - General Family Medicine 05/23/16 Ino Purdy MD [address] [place] [address] Home Care Provider Orthopedics 03/29/20 Fermín Cartwright MD [address] [place] [address]195 Referring Orthopedics 03/29/20 Classified Copy Control Clerk Relationship Specialty Start Date End Date Edenilson Nicholson DO [address] [place] [address] PCP - General Family Medicine 05/23/16 Ino Purdy MD [address] [place] [address] Home Care Provider Orthopedics 03/29/20 Fermín Cartwright MD [address] [place] [address] Referring Orthopedics 03/29/20 Classified Copy Control Clerk Relationship Specialty Start Date End Date Edenilson Nicholson DO [address] [place] [address] PCP - General Family Medicine 05/23/16 Ino Purdy MD [address] [place] [address] Home Care Provider Orthopedics 03/29/20 Fermín Cartwright MD [address] [place] [address] Referring Orthopedics 03/29/20 Classified Copy Control Clerk Relationship Specialty Start Date End Date Edenilson Nicholson DO [address] [place] [address] PCP - General Family Medicine 05/23/16 Ino Purdy MD [address] [facility] [place] [address] Home Care Provider Orthopedics 03/29/20 Fermín Cartwright MD [address] [place] [address] Referring Orthopedics 03/29/20 Classified Copy Control Clerk Relationship Specialty Start Date End Date Edenilson Nicholson DO [address] [place] [address] PCP - General Family Medicine 05/23/16 Ino Purdy MD [address] [place] [address] Home Care Provider Orthopedics 03/29/20 Fermín Cartwright MD [address] [place] [address] Referring Orthopedics 03/29/20 Classified Copy Control Clerk Relationship Specialty Start Date End Date Edenilson Nicholson DO [address] [place] [address] PCP - General Family Medicine 05/23/16 Ino Purdy MD [address] [place] [address] Home Care Provider Orthopedics 03/29/20 Fermín Cartwright MD [address] [place] [address] Referring Orthopedics 03/29/20 Classified Copy Control Clerk Relationship Specialty Start Date End Date Edenilson Nicholson DO [address] [place] [address] PCP - General Family Medicine 05/23/16 Ino Purdy MD [address] [place] [address] Home Care Provider Orthopedics 03/29/20 Fermín Cartwright MD [address] [place] [address] Referring Orthopedics 03/29/20 Classified Copy Control Clerk Relationship Specialty Start Date End Date Edenilson Nicholson DO [address] [place] [address] PCP - General Family Medicine 05/23/16 Ino Purdy MD [address] [place] [address] Home Care Provider Orthopedics 03/29/20 Fermín Cartwright MD [address] [place] [address] Referring Orthopedics 03/29/20 Classified Copy Control Clerk Relationship Specialty Start Date End Date Edenilson Nicholson DO [address] [place] [address] PCP - General Family Medicine 05/23/16 Ino Purdy MD [address] [place] [address] Home Care Provider Orthopedics 03/29/20 Fermín Cartwright MD [address] [place] [address] Referring Orthopedics 03/29/20 Classified Copy Control Clerk Relationship Specialty Start Date End Date Edenilson Nicholson DO [address] [place] [address] PCP - General Family Medicine 05/23/16 Ino Purdy MD [address] [place] [address] Home Care Provider Orthopedics 03/29/20 Fermín Cartwright MD [address] [place] [address] Referring Orthopedics 03/29/20 Magnolia Preciado, PT [address] [place] [address] Chemical Engineering Technician Post Acute Care 03/29/20 12/10/22 Classified Copy Control Clerk Relationship Specialty Start Date End Date Edenilson Nicholson DO [address] [place] [address] PCP - General Family Medicine 05/23/16 Ino Purdy MD [address] [place] [address] Home Care Provider Orthopedics 03/29/20 Fermín Cartwright MD [address] [place] [address] Referring Orthopedics 03/29/20 Classified Copy Control Clerk Relationship Specialty Start Date End Date Edenilson Nicholson DO [address] [place] [address] PCP - General Family Medicine 05/23/16 Ino Purdy MD [address] [place] [address] Home Care Provider Orthopedics 03/29/20 Fermín Cartwright MD [address] [place] [address] Referring Orthopedics 03/29/20 Classified Copy Control Clerk Relationship Specialty Start Date End Date Edenilson Nicholson DO [address] [place] [address] PCP - General Family Medicine 05/23/16 Ino Purdy MD [address] [place] [address] Home Care Provider Orthopedics 03/29/20 Fermín Cartwright MD [address] [place] [address] Referring Orthopedics 03/29/20 Magnolia Preciado, PT [address] [place] [address] Chemical Engineering Technician Post Acute Care 03/29/20 12/10/22 Classified Copy Control Clerk Relationship Specialty Start Date End Date Edenilson Nicholson DO [address] [place] [address] PCP - General Family Medicine 05/23/16 Ino Purdy MD [address] [place] [address] Home Care Provider Orthopedics 03/29/20 Fermín Cartwright MD [address] [place] [address] Referring Orthopedics 03/29/20 Magnolia Preciado, PT [address] [place] [address] Chemical Engineering Technician Post Acute Care 03/29/20 12/10/22 Classified Copy Control Clerk Relationship Specialty Start Date End Date Edenilson Nicholson DO [address] [place], [place] [address] PCP - General Family Medicine 05/23/16 Ino Purdy MD [address] [place] [address] Home Care Provider Orthopedics 03/29/20 Fermín Cartwright MD [address] [place] [address] Referring Orthopedics 03/29/20 Magnolia Preciado, PT [address] [place] [address] Chemical Engineering Technician Post Acute Care 03/29/20 12/10/22 Classified Copy Control Clerk Relationship Specialty Start Date End Date Edenilson Nicholson DO [address] [place] [address] PCP - General Family Medicine 05/23/16 Ino Purdy MD [address] [place] [address] Home Care Provider Orthopedics 03/29/20 Fermín Cartwright MD [address] [place] [address] Referring Orthopedics 03/29/20 Classified Copy Control Clerk Relationship Specialty Start Date End Date Edenilson Nicholson DO [address] [place] [address] PCP - General Family Medicine 05/23/16 Ino Purdy MD [address] [place] [address] Home Care Provider Orthopedics 03/29/20 Fermín Cartwright MD [address] [place] [address] Referring Orthopedics 03/29/20 Magnolia Preciado, PT [address] [place] [address] Chemical Engineering Technician Post Acute Care 03/29/20 12/10/22 Classified Copy Control Clerk Relationship Specialty Start Date End Date Edenilson Nicholson DO [address] [place] [address] PCP - General Family Medicine 05/23/16 Ino Purdy MD [address] [facility] [place] [address] Home Care Provider Orthopedics 03/29/20 Fermín Cartwright MD [address] [place] [address] Referring Orthopedics 03/29/20 Classified Copy Control Clerk Relationship Specialty Start Date End Date Edenilson Nicholson DO [address] [place] [address] PCP - General Family Medicine 05/23/16 Ino Purdy MD [address] [place] [address] Home Care Provider Orthopedics 03/29/20 Fermín Cartwright MD [address] [place] [address] Referring Orthopedics 03/29/20 Classified Copy Control Clerk Relationship Specialty Start Date End Date Edenilson Nicholson DO [address] [place] [address] PCP - General Family Medicine 05/23/16 Ino Purdy MD [address] [place] [address] Home Care Provider Orthopedics 03/29/20 Fermín Cartwright MD [address] [place] [address] Referring Orthopedics 03/29/20 [place], SITE IDENTIFICATION SPECIALIST.BACKWINDER [address] [place] [address] Packaging Specialist Family [facility] 02/09/24 Angeline Monterroso APRN.BACKWINDER [address] [place] [address] Packaging Specialist Family Medicine 02/09/24 Classified Copy Control Clerk Relationship Specialty Start Date End Date Edenilson Nicholson DO [address] [place] [address] PCP - General Family Medicine 05/23/16 Ino Purdy MD [address] [place] [address] Home Care Provider Orthopedics 03/29/20 Fermín Cartwright MD [address] [place] [address] Referring Orthopedics 03/29/20 Kandi Park APRN.BACKWINDER [address] [place] [address] Packaging Specialist [facility] 02/09/24 Angeline Monterroso SITE IDENTIFICATION SPECIALIST.BACKWINDER [address] [place] [address] Packaging Specialist Family [facility] 02/09/24 Classified Copy Control Clerk Relationship Specialty Start Date End Date Edenilson Nicholson DO [address] [place] [address] PCP - General Family Medicine 05/23/16 Ino Purdy MD [address] [place] [address] Home Care Provider Orthopedics 03/29/20 Fermín Cartwright MD [address] [place] [address] Referring Orthopedics 03/29/20 Kandi Park SITE IDENTIFICATION SPECIALIST.BACKWINDER [address] [place] [address] Packaging Specialist Family Medicine 02/09/24 Angeline Monterroso APRN.BACKWINDER [address] [place] [address] Packaging Specialist Family Medicine 02/09/24 Classified Copy Control Clerk Relationship Specialty Start Date End Date Edenilson Nicholson DO [address] [place] [address] PCP - General Family Medicine 05/23/16 Ino Purdy MD [address] [place] [address] Home Care Provider Orthopedics 03/29/20 Fermín Cartwright MD [address] [place] [address] Referring Orthopedics 03/29/20 Kandi Park SITE IDENTIFICATION SPECIALIST.BACKWINDER [address] [place] [address] Packaging Specialist Family Medicine 02/09/24 Angeline Monterroso SITE IDENTIFICATION SPECIALIST.BACKWINDER [address] [place] [address] Packaging Specialist Family Medicine 02/09/24 Classified Copy Control Clerk Relationship Specialty Start Date End Date Edenilson Nicholson DO [address] [place] [address] PCP - General Family Medicine 05/23/16 Ino Purdy MD [address] [place] [address] Home Care Provider Orthopedics 03/29/20 Fermín Cartwright MD [address] [place] [address] Referring Orthopedics 03/29/20 Kandi Park SITE IDENTIFICATION SPECIALIST.BACKWINDER [address] [place] [address] Packaging Specialist Family Medicine 02/09/24 Angeline Monterroso APRN.BACKWINDER [address] [place] [address] Packaging Specialist Family [facility] 02/09/24 Classified Copy Control Clerk Relationship Specialty Start Date End Date Edenilson Nicholson DO [address] [place] [address] PCP - General Family Medicine 05/23/16 Ino Purdy MD [address] [place] [address] Home Care Provider Orthopedics 03/29/20 Fermín Cartwright MD [address] [place] [address] Referring Orthopedics 03/29/20 Kandi Park APRN.BACKWINDER [address] [place] [address] Packaging Specialist Family [facility] 02/09/24 Angeline Monterroso APRN.BACKWINDER [address] [place] [address] Packaging Specialist Family Medicine 02/09/24 Classified Copy Control Clerk Relationship Specialty Start Date End Date Edenilson Nicholson DO [address] [place] [address] PCP - General Family Medicine 05/23/16 Ino Pur[facility] MD [address] [facility] [place] [address] Home Care Provider Orthopedics 03/29/20 Fermín Cartwright MD [address] [place] [address] Referring Orthopedics 03/29/20 Kandi Park APRN.BACKWINDER [address] [place] [address] Packaging Specialist Family [facility] 02/09/24 Angeline Monterroso APRN.BACKWINDER [address] [place] [address] Packaging Specialist Family [facility] 02/09/24 Classified Copy Control Clerk Relationship Specialty Start Date End Date Edenilson Nicholson DO [address] [place] [address] PCP - General Family Medicine 05/23/16 Ino Purdy MD [address] [place] [address] Home Care Provider Orthopedics 03/29/20 Fermín Cartwright MD [address] [place] [address] Referring Orthopedics 03/29/20 Kandi Park APRN.BACKWINDER [address] [place] [address] Packaging Specialist Family Medicine 02/09/24 Angeline Monterroso APRN.BACKWINDER [address] [place] [address] [facility] Classified Copy Control Clerk Relationship Specialty Start Date End Date Edenilson Nicholson DO [address] [place] [address] PCP - General Family Medicine 05/23/16 Ino Purdy MD [address] [place] [address] Home Care Provider Orthopedics 03/29/20 Fermín Cartwright MD [address] [place] [address] Referring Orthopedics 03/29/20 Kandi Park, SITE IDENTIFICATION SPECIALIST.BACKWINDER [address] [place] [address] Packaging Specialist [facility] 02/09/24 Angeline Monterroso, SITE IDENTIFICATION SPECIALIST.BACKWINDER [address] [place] [address] [facility] 02/09/24 Classified Copy Control Clerk Relationship Specialty Start Date End Date Edenilson Nicholson DO [address] [place] [address] PCP - General Family Medicine 05/23/16 Ino Purdy MD [address] [place] [address] Home Care Provider Orthopedics 03/29/20 Fermín Cartwright MD [address] [place] [address] Referring Orthopedics 03/29/20 Kandi Park, SITE IDENTIFICATION SPECIALIST.BACKWINDER [address] [place] [address] Packaging Specialist Family Medicine 02/09/24 Angleine Monterroso APRN.BACKWINDER [address] [place] [address] Packaging Specialist [facility] 02/09/24 Classified Copy Control Clerk Relationship Specialty Start Date End Date Edenilson Nicholson DO [address] [place] [address] PCP - General Family Medicine 05/23/16 Ino Purdy MD [address] [place] [address] Home Care Provider Orthopedics 03/29/20 Fermín Cartwright MD [address] [place] [address] Referring Orthopedics 03/29/20 Angeline Monterroso APRN.BACKWINDER [address] [place] [address] [facility] 02/09/24 Classified Copy Control Clerk Relationship Specialty Start Date End Date Edenilson Nicholson DO [address] [place] [address] PCP - General Family Medicine 05/23/16 Ino Purdy MD [address] [place] [address] Home Care Provider Orthopedics 03/29/20 Fermín Cartwright MD [address] [place] [address] Referring Orthopedics 03/29/20 Angeline Monterroso APRN.BACKWINDER [address] [place] [address] Packaging Specialist Family Medicine 02/09/24 Classified Copy Control Clerk Relationship Specialty Start Date End Date Edenilson Nicholson DO [address] [place] [address] PCP - General Family Medicine 05/23/16 Ino Purdy MD [address] [place] [address] Home Care Provider Orthopedics 03/29/20 Fermín Cartwright MD [address] [place] [address] Referring Orthopedics 03/29/20 Angeline Monterroso APRN.BACKWINDER [address] [place] [address] Packaging Specialist [facility] 02/09/24 Classified Copy Control Clerk Relationship Specialty Start Date End Date Edenilson Nicholson DO [address] [place] [address] PCP - General Family Medicine 05/23/16 Ino Purdy MD [address] [place] [address] Home Care Provider Orthopedics 03/29/20 Fermín Cartwright MD [address] [place] [address] Referring Orthopedics 03/29/20 Angeline Monterroso APRN.BACKWINDER [address] [place] [address] Packaging Specialist Family Medicine 02/09/24 Classified Copy Control Clerk Relationship Specialty Start Date End Date Edenilson Nicholson DO [address] [place] [address] PCP - General Family Medicine 05/23/16 Ino Purdy MD [address] [facility] [place] [address] Home Care Provider Orthopedics 03/29/20 Fermín Cartwright MD [address] [place] [address] Referring Orthopedics 03/29/20 Angeline Monterroso, SITE IDENTIFICATION SPECIALIST.BACKWINDER [address] [place] [address] Packaging Specialist Family [facility] 02/09/24 Classified Copy Control Clerk Relationship Specialty Start Date End Date Edenilson Nicholson DO [address] [place] [address] PCP - General Family Medicine 05/23/16 Ino Purdy MD [address] [place] [address] Home Care Provider Orthopedics 03/29/20 Fermín Cartwright MD [address] [place] [address] Referring Orthopedics 03/29/20 Angeline Monterroso, SITE IDENTIFICATION SPECIALIST.BACKWINDER [address] [place] [address] Packaging Specialist [facility] 02/09/24 Classified Copy Control Clerk Relationship Specialty Start Date End Date Edenilson Nicholson DO [address] [place] [address] PCP - General Family Medicine 05/23/16 Ino Purdy MD [address] [place] [address] Home Care Provider Orthopedics 03/29/20 Fermín Cartwright MD [address] [place] [address] Referring Orthopedics 03/29/20 Angeline Monterroso APRN.BACKWINDER [address] [place] [address] Packaging Specialist Family Medicine 02/09/24 Classified Copy Control Clerk Relationship Specialty Start Date End Date Edenilson Nicholson DO [address] [place] [address] PCP - General Family Medicine 05/23/16 Ino Purdy MD [address] [place] [address] Home Care Provider Orthopedics 03/29/20 Fermín Cartwright MD [address] [place] [address] Referring Orthopedics 03/29/20 Angeline Monterroso APRN.BACKWINDER [address] [place] [address] Packaging Specialist [facility] 02/09/24 Classified Copy Control Clerk Relationship Specialty Start Date End Date Edenilson Nicholson DO [address] [place] [address] PCP - General Family Medicine 05/23/16 Ino Purdy MD [address] [place] [address] Home Care Provider Orthopedics 03/29/20 Fermín Cartwright MD [address] [place] [address] Referring Orthopedics 03/29/20 Angeline Monterroso APRN.BACKWINDER [address] [place] [address] [facility] Classified Copy Control Clerk Relationship Specialty Start Date End Date Edenilson Nicholson DO [address] [place] [address] PCP - General Family Medicine 05/23/16 Ino Purdy MD [address] [facility] [place] [address] Home Care Provider Orthopedics 03/29/20 Fermín Cartwright MD [address] [place] [address] Referring Orthopedics 03/29/20 Angeline Monterroso APRN.BACKWINDER [address] [place] [address] [facility] 02/09/24 Classified Copy Control Clerk Relationship Specialty Start Date End Date Edenilson Nicholson DO [address] [place] [address] PCP - General Family Medicine 05/23/16 Ino Purdy MD [address] [place] [address] Home Care Provider Orthopedics 03/29/20 Fermín Cartwright MD [address] [place] [address] Referring Orthopedics 03/29/20 Angeline Monterroso APRN.BACKWINDER [address] [place] [address] [facility] Goals (unrecognized section and content) [...] section and content) DATE CREATED AUTHOR 01/25/2023 [facility] ([place]) DATE CREATED AUTHOR AUTHOR'S ORGANIZ ATION 05/09/2023 [facility] DATE CREATED AUTHOR AUTHOR'S ORGANIZ ATION 05/26/2023 [facility] nt DATE CREATED AUTHOR AUTHOR'S ORGANIZ ATION 05/18/2024 [facility] DATE CREATED AUTHOR AUTHOR'S ORGANIZ ATION 07/02/2024 [facility] DATE CREATED AUTHOR AUTHOR'S ORGANIZ ATION 08/09/2024 [facility] Inactive Administered Medications - up to [...] BE BASED ON THE PRIMARY CLINICAL RECORDS. [employer] provides no warranty or guarantee of the accuracy or completeness of information in this document.
[2024-08-13 22:00] VITALS: O2SAT 99
--- NOTE | 2024-08-13 22:06 | HP.PCM.HOS_ITS ---
HPI - General General Date of Admission: 08/13/24 Date of Service: 08/13/24 Chief Complaint: left hand and face numbness and tingling HPI Narrative ANAYA WILSON, is a 84 F with a pmhx of psoriatic arthritis, HTN, anx/dep, and underlying memory issues who presents to the ER with left hand and face numbness and tingling. Initially she woke up with symptoms of numbness and tingling in the left hand. Then later she was cooking and noticed the symptoms again in her hand and then numbness and tingling in the left side of her face. She thinks these lasted for seconds to minutes. This occurred at approximately 1636. She was brought to the ER and found to be HTN with BP 169/88,a CT brain negative for acute process, and CTA head and neck without large vessel occlusions, mild narrowing of the L subclavian artery. Her NIH was 0. Her symptoms are currently completely resolved. She will be kept overnight for TIA workup. [facility] Medical History (Updated 08/13/24 @ 22:14 by SUSAN Moe) DDD (degenerative disc disease) Psoriatic arthritis Home Medications ?Medication ?Instructions ?Recorded ?Last Taken ?Type ascorbic acid (vitamin C) 500 mg 500 mg PO DAILY@0800 SUPPLEMENT 09/07/16 08/12/24 History tablet (Vitamin C) cholecalciferol (vitamin D3) 125 5,000 unit PO DAILY B [facility] 09/07/16 09/06/16 History mcg (5,000 unit) capsule coenzyme Q10 100 mg capsule (Co 100 mg PO DAILY SUPPLE MENT 09/07/16 08/12/24 History Q-10) folic acid 1 mg tablet 2 mg PO DAILY SUPPLEMENT 09/1708/12/24 History glutamine 500 mg capsule 500 mg PO DAILY SUPPLEMENT 0 09/07/16 Unknown History (L-Glutamine) lecithin, soy 400 mg capsule 400 mg PO DAILY SUPPLEMEN T 09/07/16 08/12/24 History lutein 20 mg capsule 20 mg PO DAILY SUPPLEMENT 08/12/24 History methotrexate sodium 2.5 mg tablet 12.5 mg PO LORD ARHTRI TIS 09/07/16 08/08/24 History red yeast rice 600 mg capsule 600 mg PO BID SUPPLEMENT 09/07/16 08/12/24 History cyclobenzaprine 10 mg tablet 10 mg PO TID PRN PRN Back 09/11/16 Unknown Rx pain/muscle spasms #10 tabs amitriptyline 10 mg tablet 10 mg PO QHS 08/13/24 Unkno wn History donepezil 10 mg tablet 10 mg PO QHS 08/13/24 Unknow n History fluorometholone 0.1 % eye 1 drp ophthalmic (eye) QODAY 08/13/24 Unknown History drops,suspension fluoxetine 10 mg capsule 10 mg PO DAILY 08/13/24 Unkn own History losartan 25 mg tablet 25 mg PO DAILY 08/13/24 Unkn own History Allergy/AdvReac Type Severity Reaction Status Date / Time Penicillins Allergy Unknown Verified 08/13/24 18:11 meperidine HCl (From Demerol) AdvReac Intermediate Vomiting Verified 08/13/24 18:11 sertraline HCl (From Zoloft) AdvReac Intermediate Other Verified 08/13/24 18:11 acetaminophen (From AdvReac Mild Vomiting Verified 08/13/24 18:11 Darvocet-N 100) caffeine AdvReac Mild Other Verified 08/13/24 18:11 codeine AdvReac Mild Vomiting Verified 08/13/24 18:11 ephedrine AdvReac Mild Other Verified 08/13/24 18:11 propoxyphene napsylate (From AdvReac Mild Vomiting Verified 08/13/24 18:11 Darvocet-N 100) tramadol AdvReac Mild Vomiting Verified 08/13/24 18:11 ampicillin AdvReac Unknown Unknown Verified 08/13/24 18:11 griseofulvin AdvReac Unknown Unknown Verified 08/13/24 18:11 guaifenesin (From Entex [place]) AdvReac Unknown Unknown Verified 08/13/24 18:11 hydrocodone bitartrate (From AdvReac Unknown Unknown Verified 08/13/24 18:11 Vicodin) phenylephrine HCl (From AdvReac Unknown Unknown Verified 08/13/24 18:11 Entex LA) phenylpropanolamine HCl AdvReac Unknown Unknown Verified 08/13/24 18:11 (From Entex [place]) Sulfa (Sulfonamide AdvReac Unknown Unknown Verified 08/13/24 18:11 Antibiotics) Family History Father Cancer Surgical History (Updated 08/13/24 @ 22:14 by Darren DAVIS PA) History of bilateral knee arthroplasty History of carpal tunnel release H/O: hysterectomy Social History Smoking Status: Never smoker ROS Constitutional Constitutional: Denies chills, fatigue or fever(s) Eyes Eyes: Denies blurry vision ENT HEENT: Denies abnormal hearing, nasal congestion or sore throat Cardiovascular Cardiovascular: Denies chest pain or edema Respiratory/Chest Respiratory/Chest: Denies cough or dyspnea Gastrointestinal Gastrointestinal: Denies abdominal pain, diarrhea or vomiting Genitourinary Genitourinary: Denies burning urination Musculoskeletal Musculoskeletal: Reports back pain; Denies arthralgias Neurologic Neurologic: Denies abnormal gait Psychiatric Psychiatric: Reports anxiety and depression Endocrine Endocrinology: Denies change in body appearance Hematologic/Lymphatic Hematologic/Lymphatic: Denies anemia Allergic/Immunologic Allergic/Immunologic: Denies rhinitis Vital Signs Vital Signs Vital Signs: 08/13/24 17:24 08/13/24 19:24 08/13/24 21:00 Temperature 98.3 F Temperature Source Oral Pulse Rate 63 47 L 50 L Respiratory Rate 16 18 15 Blood Pressure 169/88 H 153/66 H 165/73 H Blood Pressure Mean 115 95 103 Pulse Ox 100 98 100 Oxygen Delivery Method Room Air Room Air 08/13/24 21:12 Temperature 98 F Temperature Source Pulse Rate 59 L Respiratory Rate 14 Blood Pressure 165/73 H Blood Pressure Mean 103 Pulse Ox 100 Oxygen Delivery Method Weight Weight: 55 kg Body Mass Index (BMI) 22.8 Physical Exam Const alert, oriented x3 and no apparent distress General Appearance: cooperative HEENT normocephalic and head/scalp atraumatic Eyes PERRL and EOMs intact bilaterally Neck no lymphadenopathy Resp normal respiratory effort and clear to auscultation bilaterally Cardio regular rate, regular rhythm and no murmurs GI normal to inspection, nondistended, normoactive bowel sounds, soft to palpation and non-tender Extremity normal to inspection and full ROM Neuro oriented x3 Sensorium / Orientation: awake, alert, oriented to person, oriented to place and oriented to time Psych affect normal Results Lab / Micro Data 08/13/24 18:49 08/13/24 18:49 Labs: Laboratory Results - last 24 hr 08/13/24 18:49: WBC 6.4, RBC 4.26, Hgb 13.0, Hct 40.3, MCV 94.6, MCH 30.5, MCHC 32.3, RDW Std Deviation 48.3 H, RDW Coeff of Kate 14.3, Plt Count 200, MPV 10.7, Immature Gran % (Auto) 0.300, Neut % (Auto) 69.4, Lymph % (Auto) 21.3, [place] % (Auto) 7.1, Eos % (Auto) 1.3, Baso % (Auto) 0.6, Absolute Neuts (auto) 4.4, Absolute Lymphs (auto) 1.35, Nucleated RBC % 0, Sodium 138, Potassium 4.1, Chloride 101, Carbon Dioxide 26.3, Anion Gap 11, BUN 5, Creatinine 0.62 L, Estim Creat Clear Calc 39.50 L, Est GFR (MDRD) Non-Af 88, BUN/Creatinine Ratio 8.1 L, Glucose 99, Calcium 9.5 08/13/24 20:01: POC Glucose 88 Imaging Radiology Impression Brain CT 08/13/24 18:34 IMPRESSION: No acute intracranial finding. Reading Location: [facility] Head/Neck CTA 08/13/24 18:34 IMPRESSION: 1. No large vessel occlusion, aneurysm or AVM. 2. 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 3. Severe cervical spondylosis. Reading Location: [facility] Assessment & Plan Assessment/Plan (1) TIA (transient ischemic attack): PLAN: 1. TIA - Brief episode left hand and left facial numbness and tingling, at this point completely resolved. NIH [address] brain negative, CTA head and neck no large vessel disease, mild narrowing of the left subclavian artery. EKG with sinus carmelita. Pt will be placed in observation on telemetry. Obtain MRI brain, echocardiogram, neuro consult, permissive HTN Check lipids, neuro consult, tsh, a1c, mag, phos PT/OT/ST evals Start aspirin, statin 2. Hx psoriatic arthritis - on MTX, folic acid 3. Hx anx/dep - fluoxetine, amitryptaline 4. DVT ppx: lovenox Code status: Full code. This patient was seen by Darren Beckford PA-C under the supervision of Doctor Adelso
[2024-08-13 22:08] LABS: Hemoglobin A1c 5.7 % (<=5.6)
[2024-08-13 22:09] VITALS: BMI 21.4
[2024-08-13 22:30] VITALS: BP 191/75; PULSE 51; RESP 14; TEMP 36.4; O2SAT 100
[2024-08-13] MEDS: Amitriptyline 10 MG Tablet PO (23:42)
[2024-08-13] MEDS: Atorvastatin Calcium 40 MG Tablet PO (23:42)
[2024-08-13] MEDS: Donepezil HCl 10 MG Tablet PO (23:42)
[2024-08-13] MEDS: Aspirin 81 MG TAB.CHEW PO (23:45)
[2024-08-14 01:56] VITALS: BP 176/66; PULSE 53; RESP 16; TEMP 36.4; O2SAT 100
[2024-08-14 02:44] VITALS: BMI 21.4
[2024-08-14 05:00] VITALS: BMI 21.4
[2024-08-14 05:21] LABS: Absolute Lymphocyte Count 1.54 X10^3/uL (0.83-4.51); Basophil# 0.03 X10^3/uL; Basophil% 0.5 % (0-1); Eosinophil# 0.12 X10^3/uL; Eosinophils% 1.9 % (0-5); Hematocrit 38.7 % (37-47); Hemoglobin 12.8 g/dL (12.0-15.0); Lymphocyte # 1.54 X10^3/ul (0.83-4.51); Lymphocyte % 24.7 % (19-41); Mean Corp Hgb Conc 33.1 g/dL (32-36); Mean Corpuscular Hgb 30.7 pg (27.0-32.0); Mean Corpuscular Volume 92.8 fL (81-99); Mean Platelet Vol. 10.7 fl (6.2-12.0); Monocyte# 0.54 X10^3/uL; Monocyte% 8.7 % (0-10); NRBC Flagged by Analyzer 0 % (0-5); Neutrophil # 3.99 X10^3/uL (2.7-7.7); Neutrophil % 63.9 % (47-70); Platelet Count 200 K/mm3 (150-450); RBC Distribution Width SD 47.1 fl (35.1-43.9); Red Blood Count 4.17 M/mm3 (4.2-5.4); White Blood Count 6.2 K/mm3 (4.4-11.0)
[2024-08-14 05:55] VITALS: BP 178/80; PULSE 70; RESP 16; TEMP 36.7; O2SAT 99
[2024-08-14 06:00] VITALS: BMI 21.7
[2024-08-14 06:55] VITALS: O2SAT 98
[2024-08-14 07:14] LABS: ALB/GLOB Ratio 1.7 RATIO (0.9-2.4); AST(SGOT) 26 U/L (<=31); Alanine Aminotransfer ALT/SGPT 17 U/L (<=34); Albumin, Serum 3.9 g/dL (3.4-4.8); Alkaline Phosphatase 123 U/L (35-104); Anion Gap 12 (5-15); BUN 5 mg/dL (4-19); BUN/Creat Ratio 8.2 RATIO (10-20); Calcium,Total 9.4 mg/dL (7.6-11.0); Carbon Dioxide 23.5 mmol/L (21.0-32.0); Chloride 104 mmol/L (98-108); Creatinine, Serum 0.56 mg/dL (0.70-1.20); EST Glomerular Filtration Rate 90 (>60); Globulin 2.3 g/dL (2.2-4.2); Glucose 106 mg/dL (70-99); Magnesium 2.2 mg/dL (1.5-2.2); Potassium 3.8 mmol/L (3.3-5.1); Protein, Total 6.2 g/dL (5.9-8.4); Sodium Level 140 mmol/L (133-145); Total Bilirubin 0.64 mg/dL (0.00-1.30)
[2024-08-14 07:29] LABS: Cholesterol 217 mg/dL (<=200); High Density Lipoprotein 77 mg/dL; Low Density Lipoprotein Calc. 126 mg/dL; Triglycerides 70 mg/dL; Very Low Density Lipoprotein 14 mg/dL (5-40); cholesterol:hdl ratio screen 2.83
[2024-08-14 09:00] VITALS: BP 171/78; PULSE 55; RESP 18; TEMP 36.6; O2SAT 99
[2024-08-14] MEDS: Enoxaparin 40 MG/0.4 ML Syringe SC (09:02)
[2024-08-14] MEDS: Cholecalciferol (Vit D3) 125 MCG CAPSULE (5,000 UNITS) PO (09:02)
[2024-08-14] MEDS: FLUoxetine 10 MG Capsule PO (09:03)
[2024-08-14] MEDS: Ascorbic Acid 500 MG Tablet PO (09:03)
[2024-08-14] MEDS: Folic Acid 1 MG Tablet 2 MG PO (09:03)
[2024-08-14 10:18] VITALS: BMI 21.7
[2024-08-14 13:41] VITALS: BP 131/71; PULSE 67; RESP 18; TEMP 36.6; O2SAT 97
--- NOTE | 2024-08-14 14:24 | STROKE.CONS ---
Assessment and Plan: Stroke Assessment/Plan Patient presenting with two episodes of transient L face/L hand numbness which have resolved. Likely due to transient ischemic attack. -start ASA 81 daily , No DAPT as ABCD socre<4 -start atorvastatin 40 daily -goal LDL<70, HBA1c <7 -CTA head/neck ?no significant stenosis -fu TTE. Please reach out if any abnormality -Recommend ?30 day cardiac event monitor on discharge to evaluate for atrial fibrillation/flutter -BP goal 120/80 -no smoking -follow up with PCP 1-2 weeks and neurology ?4-6 weeks HPI Consult Data Date of Consult: 08/14/24 HPI Narrative HPI Narrative: 84 yo? F w PMH psoriatic arthritis, HTN, anxiety/depression, cognitive impairment presents with transient L hand/face numbness and tingling. On 08/13, awoke with numbnss in the left hand which resolved in 15 minutes. Later in the day while cooking noted tingling with L face which also resolved in 15 minutes. The last episode was at 4pm on 08/13. Went to ER for evaluation. Initial BP was 169/88. CTH negative, CTA showed no LVO or significant stenosis. MRI brain showed no significant abnormalities. Symptoms have since resolved. ?Never had prior similar episode and has not reoccurred. No AC/AP at home. ? Currently feels back to normal. [facility] Medical History DDD (degenerative disc disease) Psoriatic arthritis Home Medications ?Medication ?Instructions ?Recorded ?Last Taken ?Type ascorbic acid (vitamin C) 500 mg 500 mg PO DAILY@0800 SUPPLEMENT 09/07/16 08/12/24 History tablet (Vitamin C) cholecalciferol (vitamin D3) 125 5,000 unit PO DAILY BONE HEALTH 09/07/16 09/06/16 History mcg (5,000 unit) capsule coenzyme Q10 100 mg capsule (Co 100 mg PO DAILY SUPPLEMENT 09/07/16 08/12/24 History Q-10) folic acid 1 mg tablet 2 mg PO DAILY SUPPLEMENT 09/07/16 08/12/24 History glutamine 500 mg capsule 500 mg PO DAILY SUPPLEMENT 09/07/16 Unknown History (L-Glutamine) lutein 20 mg capsule 20 mg PO DAILY SUPPLEMENT 09/07/16 08/12/24 History methotrexate sodium 2.5 mg tablet 12.5 mg PO LORD ARHTRITIS 09/07/16 08/08/24 History red yeast rice 600 mg capsule 600 mg PO BID SUPPLEMENT 09/07/16 08/12/24 History cyclobenzaprine 10 mg tablet 10 mg PO TID PRN PRN Back 09/11/16 Unknown Rx pain/muscle spasms #10 tabs amitriptyline 10 mg tablet 10 mg PO QHS mood 08/13/24 Unknown History donepezil 10 mg tablet 10 mg PO QHS memory 08/13/24 Unknown History fluorometholone 0.1 % eye 1 drp ophthalmic (eye) QODAY 08/13/24 Unknown History drops,suspension fluoxetine 10 mg capsule 10 mg PO DAILY depression 08/13/24 Unknown History losartan 25 mg tablet 25 mg PO DAILY blood pressure 08/13/24 Unknown History Allergy/AdvReac Type Severity Reaction Status Date / Time Penicillins Allergy Unknown Verified 08/13/24 18:11 meperidine HCl (From Demerol) AdvReac Intermediate Vomiting Verified 08/13/24 18:11 sertraline HCl (From Zoloft) AdvReac Intermediate Other Verified 08/13/24 18:11 acetaminophen (From AdvReac Mild Vomiting Verified 08/13/24 18:11 Darvocet-N 100) caffeine AdvReac Mild Other Verified 08/13/24 18:11 codeine AdvReac Mild Vomiting Verified 08/13/24 18:11 ephedrine AdvReac Mild Other Verified 08/13/24 18:11 propoxyphene napsylate (From AdvReac Mild Vomiting Verified 08/13/24 18:11 Darvocet-N 100) tramadol AdvReac Mild Vomiting Verified 08/13/24 18:11 ampicillin AdvReac Unknown Unknown Verified 08/13/24 18:11 griseofulvin AdvReac Unknown Unknown Verified 08/13/24 18:11 guaifenesin (From Entex [place]) AdvReac Unknown Unknown Verified 08/13/24 18:11 hydrocodone bitartrate (From AdvReac Unknown Unknown Verified 08/13/24 18:11 Vicodin) phenylephrine HCl (From AdvReac Unknown Unknown Verified 08/13/24 18:11 Entex LA) phenylpropanolamine HCl AdvReac Unknown Unknown Verified 08/13/24 18:11 (From Entex LA) Sulfa (Sulfonamide AdvReac Unknown Unknown Verified 08/13/24 18:11 Antibiotics) Family History Father Cancer Surgical History History of bilateral knee arthroplasty History of carpal tunnel release H/O: hysterectomy Social History (Updated 08/13/24 @ 22:21 by Mary Hanley) Smoking Status: Never smoker Vital Signs Vital Signs Vital Signs: 08/13/24 17:24 08/13/24 19:24 08/13/24 21:00 Temperature 98.3 F Temperature Source Oral Pulse Rate 63 47 L 50 L Respiratory Rate 16 18 15 Respiratory Effort Respiratory Depth Respiratory Pattern Blood Pressure 169/88 H 153/66 H 165/73 H Blood Pressure Mean 115 95 103 Blood Pressure Source Blood Pressure Position Blood Pressure Location Pulse Ox 100 98 100 Oxygen Delivery Method Room Air Room Air 08/13/24 21:12 08/13/24 22:00 08/13/24 22:30 Temperature 98 F 97.5 F L Temperature Source Oral Pulse Rate 59 L 51 L Respiratory Rate 14 14 Respiratory Effort Respiratory Depth Respiratory Pattern Blood Pressure 165/73 H 191/75 H Blood Pressure Mean 103 113 Blood Pressure Source Monitor Blood Pressure Position Semi-Fowlers Blood Pressure Location Left Arm Pulse Ox 100 99 100 Oxygen Delivery Method Room Air Room Air 08/13/24 22:45 08/14/24 01:56 08/14/24 02:00 Temperature 97.6 F L Temperature Source Oral Pulse Rate 53 L Respiratory Rate 16 Respiratory Effort Normal Non-Labored Normal Non-Labored Respiratory Depth Normal Normal Respiratory Pattern Normal Normal Blood Pressure 176/66 H Blood Pressure Mean 102 Blood Pressure Source Monitor Blood Pressure Position Supine Blood Pressure Location Left Arm Pulse Ox 100 Oxygen Delivery Method Room Air Room Air Room Air 08/14/24 05:55 08/14/24 06:55 08/14/24 09:00 Temperature 98.0 F 97.8 F Temperature Source Oral Temporal Pulse Rate 70 55 L Respiratory Rate 16 18 Respiratory Effort Respiratory Depth Respiratory Pattern Blood Pressure 178/80 H 171/78 H Blood Pressure Mean 112 109 Blood Pressure Source Monitor Monitor Blood Pressure Position Supine Semi-Fowlers Blood Pressure Location Left Arm Right Arm Pulse Ox 99 98 99 Oxygen Delivery Method Room Air Room Air Room Air 08/14/24 10:00 08/14/24 13:41 Temperature 97.8 F Temperature Source Temporal Pulse Rate 67 Respiratory Rate 18 Respiratory Effort Normal Non-Labored Respiratory Depth Normal Respiratory Pattern Normal Blood Pressure 131/71 H Blood Pressure Mean 91 Blood Pressure Source Monitor Blood Pressure Position Semi-Fowlers Blood Pressure Location Right Arm Pulse Ox 97 Oxygen Delivery Method Room Air Room Air Weight Weight: 52.1 kg Body Mass Index (BMI) 21.7 EEG Results Procedure Details EEG Procedure Details: ANAYA WILSON is a 84 year old F with a past medical history of , who presents for evaluation of Electroencephalogram on DATE at TIME Physical Exam Narrative MS: awake, alert, oriented x 3, follows commands, able to name, no aphasia, no dysarthria CN: VFF, EOMI , no facial weakness, nml facial sensation M:? Antigravity in all extremities, no drift S: nml to LT in all extremities C: no dysmetria Lab / Micro Data 08/14/24 04:45 08/14/24 04:45 Labs: Laboratory Results - last 24 hr 08/13/24 18:49: WBC 6.4, RBC 4.26, Hgb 13.0, Hct 40.3, MCV 94.6, MCH 30.5, MCHC 32.3, RDW Std Deviation 48.3 H, RDW Coeff of Kate 14.3, Plt Count 200, MPV 10.7, Immature Gran % (Auto) 0.300, Neut % (Auto) 69.4, Lymph % (Auto) 21.3, [place] % (Auto) 7.1, Eos % (Auto) 1.3, Baso % (Auto) 0.6, Absolute Neuts (auto) 4.4, Absolute Lymphs (auto) 1.35, Nucleated RBC % 0, Sodium 138, Potassium 4.1, Chloride 101, Carbon Dioxide 26.3, Anion Gap 11, BUN 5, Creatinine 0.62 L, Estim Creat Clear Calc 39.50 L, Est GFR (MDRD) Non-Af 88, BUN/Creatinine Ratio 8.1 L, Glucose 99, Hemoglobin A1c 5.7, Calcium 9.5 08/13/24 20:01: POC Glucose 88 08/14/24 04:45: WBC 6.2, RBC 4.17 L, Hgb 12.8, Hct 38.7, MCV 92.8, MCH 30.7, MCHC 33.1, RDW Std Deviation 47.1 H, RDW Coeff of Kate 14.0, Plt Count 200, MPV 10.7, Immature Gran % (Auto) 0.300, Neut % (Auto) 63.9, Lymph % (Auto) 24.7, [place] % (Auto) 8.7, Eos % (Auto) 1.9, Baso % (Auto) 0.5, Absolute Neuts (auto) 4.0, Absolute Lymphs (auto) 1.54, Nucleated RBC % 0, Sodium 140, Potassium 3.8, Chloride 104, Carbon Dioxide 23.5, Anion Gap 12, BUN 5, Creatinine 0.56 L, Estim Creat Clear Calc 39.50 L, Est GFR (MDRD) Non-Af 90, BUN/Creatinine Ratio 8.2 L, Glucose 106 H, Calcium 9.4, Phosphorus 3.0, Magnesium 2.2, Total Bilirubin 0.64, AST 26, ALT 17, Alkaline Phosphatase 123 H, Total Protein 6.2, Albumin 3.9, Globulin 2.3, Albumin/Globulin Ratio 1.7, Triglycerides 70, Cholesterol 217 H, LDL Cholesterol, Calc 126, VLDL Cholesterol 14, HDL Cholesterol 77, Cholesterol/HDL Ratio 2.83, TSH 1.720 Imaging Radiology Impression Brain CT 08/13/24 18:34 IMPRESSION: No acute intracranial finding. Reading Location: [facility] Head/Neck CTA 08/13/24 18:34 IMPRESSION: 1. No large vessel occlusion, aneurysm or AVM. 2. 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 3. Severe cervical spondylosis. Reading Location: [facility] Brain MRI 08/14/24 21:27 IMPRESSION: 1. Mild cerebral atrophy. 2. No evidence of acute intracranial pathology. Reading Location: [place] [address] Active Medications Active Medications Active Medications: Current Medications Generic Name Dose Route Start Last Admin Trade Name Freq PRN Reason Stop Dose Admin Acetaminophen 650 mg 08/13/24 22:09 Acetaminophen 325 Mg Tablet PO Q6H PRN PRN Pain 1-10 Or Fever>100.7 Amitriptyline HCl 10 mg 08/13/24 22:09 08/13/24 23:42 Amitriptyline 10 Mg Tablet PO 10 mg QHS EILEEN Administration Ascorbic Acid 500 mg 08/14/24 08:00 08/14/24 09:03 Ascorbic Acid 500 Mg Tablet PO 500 mg DAILY@0800 EILEEN Administration Atorvastatin Calcium 40 mg 08/13/24 22:09 08/13/24 23:42 Atorvastatin Calcium 40 Mg Tablet PO 40 mg QHS EILEEN Administration Cholecalciferol 125 mcg 08/14/24 10:00 08/14/24 09:02 Cholecalciferol (Vit D3) 125 Mcg Capsule (5,000 Units) PO 125 mcg DAILY EILEEN Administration Clarify Med Order 1 each 08/13/24 22:30 08/14/24 08:06 Clarify Order NOTE Not Given CLARIFY EILEEN Donepezil HCl 10 mg 08/13/24 22:09 08/13/24 23:42 Donepezil Hcl 10 Mg Tablet PO 10 mg QHS EILEEN Administration Enoxaparin Sodium 40 mg 08/14/24 10:00 08/14/24 09:02 Enoxaparin 40 Mg/0.4 Ml Syringe SC 40 mg DAILY EILEEN Administration Fluoxetine HCl 10 mg 08/14/24 10:00 08/14/24 09:03 Fluoxetine 10 Mg Capsule PO 10 mg DAILY EILEEN Administration Folic Acid 2 mg 08/14/24 08:00 08/14/24 09:03 Folic Acid 1 Mg Tablet PO 2 mg BREAKFAST EILEEN Administration Hydralazine HCl 5 mg 08/13/24 22:09 Hydralazine 20 Mg/Ml Vial IV 08/14/24 22:09 Q30M PRN maintain BP parameters with HR <60 Sodium Chloride 250 mls @ 15 mls/hr 08/13/24 22:14 IV .[id number] PRN Saline Flush Sodium Chloride 250 mls @ 15 mls/hr 08/13/24 22:14 IV .[id number] PRN Additional IVPB Infusion Labetalol HCl 10 - 20 mg 08/13/24 22:09 Labetalol 20 Mg/4 Ml Vial IV 08/14/24 22:09 Q10M PRN PRN maintain BP parameters with HR >/=60 Melatonin 3 mg 08/13/24 22:09 Melatonin 3 Mg Tablet PO QHS PRN PRN INSOMNIA Methotrexate 12.5 mg 08/16/24 10:00 Methotrexate 2.5 Mg Tablet PO Lord@1000 [facility] Non-Formulary Medication 1 drp 08/15/24 10:00 Fluorometholone OPHTHALMIC QODAY EILEEN Ondansetron HCl 4 mg 08/13/24 22:09 Ondansetron 4 Mg/2 Ml Vial IV Q8H PRN PRN NAUSEA/VOMITING Senna/Docusate Sodium 2 tablet 08/13/24 22:09 Senna/Docusate Sodium 1 Tablet PO BID PRN PRN Constipation Sodium Chloride 10 - 40 ml 08/13/24 22:14 0.9% Saline Lock 10 Ml Syringe IV UD PRN SALINE FLUSH NIHSS NIHSS Nursing Documentation NIHSS Nursing Documentation: NIHSS: Ischemic Stroke/TIA Start: 08/13/24 22:09 Text: For PCU Patients: NIH and Neuro Check every 4 Status: Complete hours, PRN and with change in RN caregiver. Freq: [id number] Protocol: Activity Type Activity Date Activity User E-sign Co-sign Detail Recorded Client Recorded Date Recorded By Document 08/14/24 08:59 KS desktop 08/14/24 09:00 KS 08/14/24 08:59 NIH Stroke Scale [NIHSS] A score of 0 is normal or asymptomatic . Total possible score is 42. Inpatient: RN or Physician to activate a stroke alert for onset of new stroke symptoms or with NIHSS increase >/= 3 points. Following change in neurological status, NIHSS will be performed per physician order or more frequently PRN. -1a. Level of Consciousness 0 - Alert; keenly responsive -1b. LOC Questions 0 - Answers BOTH questions correctly -1c. LOC Commands 0 - Performs BOTH tasks correctly -2. Best Gaze 0 - Normal -3. Visual 0 - No visual loss -4. Facial Palsy 0 - Normal symmetrical movements -5a. Left Arm 0 - No drift; arm holds 90 ( or 45) degrees for full 10 seconds -5b. Right Arm 0 - No drift; arm holds 90 ( or 45) degrees for full 10 seconds -6a. Left Leg 0 - No drift; leg holds 30- degree position for full 5 seconds -6b. Right Leg 0 - No drift; leg holds 30- degree position for full 5 seconds -7. Limb Ataxia 0 - Absent -8. Sensory 0 - Normal; no sensory loss -9. Best Language 0 - No aphasia; normal -10. Dysarthria 0 - Normal -11. Extinction and Inattention 0 - No abnormality -Total 0 Query Text:A score of 0 is normal or asymptomatic. Total possible score is 42 . ED: Notify Physician for NIHSS increase by > / = 3 points. Inpatient: RN or Physician to activate a stroke alert for NIHSS increase of > / = 3 points. Coma Scale [Assess] -Eye Opening Spontaneous -Motor Obeys Commands -Verbal Oriented [Total] -Coma Scale Total 15
--- NOTE | 2024-08-14 15:34 | PCM.DC.SUM ---
Providers Date of Admission: 08/13/24 Primary Care Physician: Dr. Edenilson Nicholson, Consultations 08/13/24 22:09 Consult: Tele-Neurology Routine Consulting Provider: [facility] Reason for Consult: Acute Ischemic Stroke/TIA EMERGENT Consult: No MD Notified: Yes Date Notified: 08/13/24 Time Notified: 22:17 Method of Notification: Answering Service Nursing Unit Staff Notify [facility] of Tele-Neurology Consult: Yes Reason For Visit: LEFT FACE AND ARM PARASTHESIAS Diagnosis Discharge Diagnosis (1) TIA (transient ischemic attack): Status: Acute Code(s): G45.9 - Transient cerebral ischemic attack, unspecified Plan: This is an 84-year-old female presents with left hand and face numbness and tingling. Symptoms did resolve. She underwent a stroke workup. MRI of the brain negative. Echo negative. [facility] recommending aspirin 81 mg daily. No need for dual antiplatelet therapy at this time. Atorvastatin 40 mg daily. Also recommending a 30-day cardiac event monitor to evaluate for A-fib/flutter. Patient follow-up with PCP in 1 to 2 weeks and neurology in 4 to 6 weeks. Medications at Discharge Home Medications ascorbic acid (vitamin C) 500 mg tablet (Vitamin C) 500 mg PO DAILY@0800 SUPPLEMENT 09/07/16 cholecalciferol (vitamin D3) 125 mcg (5,000 unit) capsule 5,000 unit PO DAILY BONE HEALTH 09/07/16 coenzyme Q10 100 mg capsule (Co Q-10) 100 mg PO DAILY SUPPLEMENT 09/07/16 folic acid 1 mg tablet 2 mg PO DAILY SUPPLEMENT 09/07/16 glutamine 500 mg capsule (L-Glutamine) 500 mg PO DAILY SUPPLEMENT 09/07/16 lutein 20 mg capsule 20 mg PO DAILY SUPPLEMENT 09/07/16 methotrexate sodium 2.5 mg tablet 12.5 mg PO LORD ARHTRITIS 09/07/16 red yeast rice 600 mg capsule 600 mg PO BID SUPPLEMENT 09/07/16 cyclobenzaprine 10 mg tablet 10 mg PO TID PRN PRN Back pain/muscle spasms #10 tabs 09/11/16 amitriptyline 10 mg tablet 10 mg PO QHS mood 08/13/24 donepezil 10 mg tablet 10 mg PO QHS memory 08/13/24 fluorometholone 0.1 % eye drops,suspension 1 drp ophthalmic (eye) QODAY 08/13/24 fluoxetine 10 mg capsule 10 mg PO DAILY depression 08/13/24 losartan 25 mg tablet 25 mg PO DAILY blood pressure 08/13/24 aspirin 81 mg tablet 81 mg PO DAILY #30 tabs 08/14/24 atorvastatin 40 mg tablet 40 mg PO QHS #30 tabs 08/14/24 Hospital Course Procedures 2-D Echocardiogram Summary of Care Provided Minutes Spent on Discharge: 32 Physical Exam Const alert and no apparent distress Constitutional Narrative: Seen have an echocardiogram. No facial droop. Moves all extremity spontaneously. General Appearance: cooperative and comfortable Weight / BMI Weight Weight: 52.1 kg Body Mass Index (BMI) 21.7 ABG / Lab / Microbiology Data 08/14/24 04:45 08/14/24 04:45 Laboratory: Laboratory Results - last 24 hr 08/13/24 18:49: WBC 6.4, RBC 4.26, Hgb 13.0, Hct 40.3, MCV 94.6, MCH 30.5, MCHC 32.3, RDW Std Deviation 48.3 H, RDW Coeff of Kate 14.3, Plt Count 200, MPV 10.7, Immature Gran % (Auto) 0.300, Neut % (Auto) 69.4, Lymph % (Auto) 21.3, [place] % (Auto) 7.1, Eos % (Auto) 1.3, Baso % (Auto) 0.6, Absolute Neuts (auto) 4.4, Absolute Lymphs (auto) 1.35, Nucleated RBC % 0, Sodium 138, Potassium 4.1, Chloride 101, Carbon Dioxide 26.3, Anion Gap 11, BUN 5, Creatinine 0.62 L, Estim Creat Clear Calc 39.50 L, Est GFR (MDRD) Non-Af 88, BUN/Creatinine Ratio 8.1 L, Glucose 99, Hemoglobin A1c 5.7, Calcium 9.5 08/13/24 20:01: POC Glucose 88 08/14/24 04:45: WBC 6.2, RBC 4.17 L, Hgb 12.8, Hct 38.7, MCV 92.8, MCH 30.7, MCHC 33.1, RDW Std Deviation 47.1 H, RDW Coeff of Kate 14.0, Plt Count 200, MPV 10.7, Immature Gran % (Auto) 0.300, Neut % (Auto) 63.9, Lymph % (Auto) 24.7, [place] % (Auto) 8.7, Eos % (Auto) 1.9, Baso % (Auto) 0.5, Absolute Neuts (auto) 4.0, Absolute Lymphs (auto) 1.54, Nucleated RBC % 0, Sodium 140, Potassium 3.8, Chloride 104, Carbon Dioxide 23.5, Anion Gap 12, BUN 5, Creatinine 0.56 L, Estim Creat Clear Calc 39.50 L, Est GFR (MDRD) Non-Af 90, BUN/Creatinine Ratio 8.2 L, Glucose 106 H, Calcium 9.4, Phosphorus 3.0, Magnesium 2.2, Total Bilirubin 0.64, AST 26, ALT 17, Alkaline Phosphatase 123 H, Total Protein 6.2, Albumin 3.9, Globulin 2.3, Albumin/Globulin Ratio 1.7, Triglycerides 70, Cholesterol 217 H, LDL Cholesterol, Calc 126, VLDL Cholesterol 14, HDL Cholesterol 77, Cholesterol/HDL Ratio 2.83, TSH 1.720 Radiography Diagnostic Testing: Radiology Impression Brain CT 08/13/24 18:34 IMPRESSION: No acute intracranial finding. Reading Location: [facility] Head/Neck CTA 08/13/24 18:34 IMPRESSION: 1. No large vessel occlusion, aneurysm or AVM. 2. 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 3. Severe cervical spondylosis. Reading Location: [facility] Echocardiogram 08/13/24 21:27 Interpretation Summary The LV ejection fraction is 65 %. Left ventricular systolic function is normal. Mild (1+) aortic valve insufficiency. Grade 1 diastolic dysfunction Trivial mitral valve insufficiency. Ordering Physician: Ramona Darden Referring Physician: Edenilson Nicholson Performed By: Sharon Selby, DARLINE, RVT Brain MRI 08/14/24 21:27 IMPRESSION: 1. Mild cerebral atrophy. 2. No evidence of acute intracranial pathology. Reading Location: [place] [address] D/C Instructions Discharge Diet: Low fat / Low cholesterol DC O2, CPAP, BIPAP Needs Home O2 Discharge instructions: No Meaningful Use Info Meaningful Use Meaningful Use Diagnoses (Choose all that apply): Ischemic CVA CVA Therapy Assessed for PT,OT and/or ST?: Yes Ischemic Stroke Antithrombotic order at d/c?: Yes Dx of Atrial fib/flutter?: No Anticoagulant at discharge?: No Reason anticoagulant not ordered: Treatment not Indicated Statin Dosing Therapy Reference: STATIN DOSE THERAPY REFERENCE: * Patients > 75 years receive moderate or high dose statin therapy. * Patients 75 years or YOUNGER should receive HIGH intensity statin dose unless contraindicated. You will be required to document reason for non-treatment if statin daily dose does not meet guidelines. HIGH DOSE STATIN THERAPY DAILY Atorvastatin > than or = to 40 mg Rosuvastatin > than or = to 20 mg Amlodipine + Atorvastatin > than or = to 2.5/40 mg Ezetimibe + Simvastatin 10/80 mg Simvastatin 80mg Statins at discharge?: Yes Primary Dx Acute Ischemic CVA?: Yes IV thrombolytic ordered during stay?: No Reason IV thrombolytic not ordered: Treatment not Indicated Discharge Plan Admission Admit Date/Time: 08/13/24 21:21 Primary Reason for Your Visit: TIA Attending Provider: Jerome Brasher Primary Care Provider: Edenilson Nicholson Consulting Providers: Pop Toro; Maira Neely; Yuliet Messer; Elissa Pyle; Sharri Marroquin; Anthony Kent; Leti Yarbrough; Aric Martinez; Robert Chanel; Maury Garnica; Carol Porras; Jimi Us; Nathaly Alberto; Navya Shane; Lucia Welsh; Willy Goldsmith; Allegra Mg; Abdifatah Chen; Libby Darden; Rahul Quiñonez; Ramona Darden Instructions Patient Instructions: What Is a TIA? Additional Instructions / Restrictions: You had symptoms concerning for a TIA (transient ischemic attack). Neurology is recommending aspirin as well as cholesterol medication and an event monitor. Please follow-up with your primary care doctor in 1 to 2 weeks and neurology in 4 to 6 weeks as you are able. Discharge Orders/Prescriptions Prescriptions: New atorvastatin 40 mg Tablet 40 mg PO QHS Qty: 30 0RF aspirin 81 mg tablet 81 mg PO DAILY Qty: 30 0RF Rx Instructions: [id number]. No prescription required Continued L-Glutamine 500 MG capsule 500 mg PO DAILY ascorbic acid (vitamin C) [Vitamin C] 500 MG tablet 500 mg PO DAILY@0800 cholecalciferol (vitamin D3) 5,000 UNIT capsule 5,000 unit PO DAILY coenzyme Q10 [Co Q-10] 100 MG capsule 100 mg PO DAILY lutein 20 MG capsule 20 mg PO DAILY red yeast rice 600 MG capsule 600 mg PO BID methotrexate sodium 2.5 MG tablet 12.5 mg PO LORD Patient Comments: on sundays. folic acid 1 MG tablet 2 mg PO DAILY cyclobenzaprine 10 MG tablet 10 mg PO TID PRN PRN (Reason: Back pain/muscle spasms) Qty: 10 0RF donepezil 10 mg tablet 10 mg PO QHS amitriptyline 10 mg tablet 10 mg PO QHS fluorometholone 0.1 % drops,suspension 1 drp ophthalmic (eye) QODAY losartan 25 mg tablet 25 mg PO DAILY fluoxetine 10 mg capsule 10 mg PO DAILY Other Ambulatory Orders: 30 Day Event Recorder Preventi (Urgent) Timeframe: 1 Day Facility: [facility] - Location: Cardiovascular Services Ordered By: Dr. Jerome Brasher Referrals / Follow Up: Edenilson Nicholson DO [Primary Care Provider] - Charges/Coding Visit Charges Inpatient E&M: 98267 Disch Hosp >30min
--- NOTE | 2024-08-14 16:46 | CASEMGMT ---
ROBERT SEQUEIRA NOTE: DC order is in. RN CM to room. Pt sitting up in chair in room. in room talking w/pt. They both deny having any discharge needs or concerns. Edwige IRWINN ROBERT CM
--- NOTE | 2024-08-14 21:27 | MRI_ITS ---
PROCEDURE: BRAIN WITHOUT CONTRAST 08/14/2024 REASON FOR EXAM: STROKE TECHNIQUE: Noncontrast brain MRI. Multiplanar and multisequence images were obtained. COMPARISON: CT head without contrast and CTA head and neck with contrast, 08/13/2024 FINDINGS: There is mild diffuse cerebral atrophy with concomitant ventriculomegaly. There are few punctate foci of abnormal periventricular and subcortical white matter signal, in both cerebral hemispheres, consistent with chronic ischemic white matter disease. There is a normal sulcal pattern and gyral configuration. There is no evidence of acute intracranial hemorrhage or infarction. The simeon-white differentiation is well preserved. There is no evidence of restricted diffusion. The basilar cisterns are normal. There are normal flow voids demonstrated in the recognized intracranial vessels. The cerebellum and brainstem are unremarkable. The cerebellar pontine angles are normal. The craniovertebral junction is normal. The sella and suprasellar regions are normal. The orbits and retro-orbital regions are unremarkable. The nasal septum is midline. The paranasal sinuses are clear. The mastoid air cells are clear. There is normal bone marrow signal in the skull base and calvarium. There is a sebaceous cyst in the scalp, just to the right of the vertex. MRI/Brain without Contrast IMPRESSION: 1. Mild cerebral atrophy. 2. No evidence of acute intracranial pathology. Reading Location: [place] [address]
== END 2024-08-14 16:58 | disposition home or self-care (01) ==
LOC: ED 21:23 → PCU 21:36
PROVIDERS: Physician Assistant; Admitting Provider Internal Medicine; Emergency Provider Surgery; PCP Student in an Organized Health Care Education/Training Program; Referring Provider Surgery
DX: G45.9 Transient cerebral ischemic attack, unspecified (principal); L40.50 Arthropathic psoriasis, unspecified; R29.700 NIHSS score 0; F41.9 Anxiety disorder, unspecified; G47.00 Insomnia, unspecified; F32.A Depression, unspecified; E78.5 Hyperlipidemia, unspecified; I10 Essential (primary) hypertension; R20.2 Paresthesia of skin; Z79.899 Other long term (current) drug therapy; Z79.82 Long term (current) use of aspirin
CPT/HCPCS: 36415; 70450; 70496; 70498; 70551; 80048; 80053; 80061; 82962; 83036; 83735; 84100; 84443; 85025; 93005; 93306; 94762; 96372; 97802; 99221; 99285; Q9967; A4216; G0378

== ENCOUNTER → 2024-09-14 | Outpatient (CLI) | payer MEDICARE, SELFPAY ==
[2024-09-14 12:39] LABS: Hematocrit 36.9 % (37-47); Hemoglobin 11.8 g/dL (12.0-15.0); Immature Granulocytes Count 0.030 X10^3/uL (0.0-0.0); Mean Corp Hgb Conc 32.0 g/dL (32-36); Mean Corpuscular Volume 97.4 fL (81-99); Mean Platelet Vol. 10.7 fl (6.2-12.0); NRBC Flagged by Analyzer 0 % (0-5); Platelet Count 217 K/mm3 (150-450); RBC Distribution Width CV 14.4 % (11.6-14.6); RBC Distribution Width SD 50.5 fl (35.1-43.9); Red Blood Count 3.79 M/mm3 (4.2-5.4); White Blood Count 6.7 K/mm3 (4.4-11.0)
[2024-09-14 13:07] LABS: AST(SGOT) 27 U/L (<=31); Alanine Aminotransfer ALT/SGPT 31 U/L (<=34); Albumin, Serum 3.7 g/dL (3.4-4.8); Alkaline Phosphatase 115 U/L (35-104); Anion Gap 10 (5-15); BUN 12 mg/dL (4-19); BUN/Creat Ratio 18.5 RATIO (10-20); Calcium,Total 8.9 mg/dL (7.6-11.0); Carbon Dioxide 25.5 mmol/L (21.0-32.0); Chloride 105 mmol/L (98-108); Globulin 2.3 g/dL (2.2-4.2); Glucose 90 mg/dL (70-99); Potassium 4.2 mmol/L (3.3-5.1)
== END | disposition home or self-care (01) ==
LOC: MTLAB 10:26
PROVIDERS: PCP Student in an Organized Health Care Education/Training Program; Referring Provider Internal Medicine Rheumatology; Visit Provider Internal Medicine Rheumatology
DX: L40.59 Other psoriatic arthropathy (principal); Z79.899 Other long term (current) drug therapy
CPT/HCPCS: 36415; 80053; 85025

== ENCOUNTER 2024-11-04 16:19 | Emergency (ER) | payer MEDICARE, SELFPAY ==
[2024-11-04 16:20] VITALS: BP 136/63; PULSE 66; RESP 16; TEMP 36.9; O2SAT 98; BMI 22.2
--- NOTE | 2024-11-04 16:34 | EX.ED.DYSGE1 ---
HPI History of Present Illness Chief Complaint: Flank Pain Detail of Chief Complaint: Abrupt onset of left flank/left low back pain Informant: patient Onset/Context/Timing Onset: Today Context: Sudden Onset Timing: Continuous and Waxes and wanes Quality: Pain Location: Left flank/paralumbar region Current Severity: Mild Maximum Severity: Severe Worsened by: Nothing per patient Relieved by: Nothing Associated Symptoms Associated Symptoms: Frequency Narrative Narrative: Patient is an 84-year-old woman. She presents with left flank/left paralumbar pain that started abruptly. There is a positional component. There is also pain that causes her significant discomfort when she is just lying still. She denies radiation of the pain anteriorly. She does report increased frequency from her baseline. She denies dysuria or hematuria. She has no history of renal or ureterolithiasis. She had a colonoscopy yesterday. The pain is not abdominal. She is not having diarrhea. She has not done any lifting, pushing or pulling the last 2 days. She reports nausea or vomiting with most analgesic meds. There is also unknown to hydrocodone. Prior similar symptoms: No Recent Illness/Hospitalization: Yes (Colonoscopy yesterday at [facility]) [facility] Medical History DDD (degenerative disc disease) Psoriatic arthritis Home Medications ?Medication ?Instructions ?Recorded ?Last Taken ?Type ascorbic acid (vitamin C) 500 mg 500 mg PO DAILY@0800 SUPPLEMENT 09/07/16 08/12/24 History tablet (Vitamin C) cholecalciferol (vitamin D3) 125 5,000 unit PO DAILY BONE HEALTH 09/07/16 09/06/16 History mcg (5,000 unit) capsule coenzyme Q10 100 mg capsule (Co 100 mg PO DAILY SUPPLEMENT 09/07/16 08/12/24 History Q-10) folic acid 1 mg tablet 2 mg PO DAILY SUPPLEMENT 09/07/16 08/12/24 History glutamine 500 mg capsule 500 mg PO DAILY SUPPLEMENT 09/07/16 Unknown History (L-Glutamine) lutein 20 mg capsule 20 mg PO DAILY SUPPLEMENT 09/07/16 08/12/24 History methotrexate sodium 2.5 mg tablet 12.5 mg PO LORD ARHTRITIS 09/07/16 08/08/24 History red yeast rice 600 mg capsule 600 mg PO BID SUPPLEMENT 09/07/16 08/12/24 History cyclobenzaprine 10 mg tablet 10 mg PO TID PRN PRN Back 09/11/16 Unknown Rx pain/muscle spasms #10 tabs amitriptyline 10 mg tablet 10 mg PO QHS mood 08/13/24 Unknown History donepezil 10 mg tablet 10 mg PO QHS memory 08/13/24 Unknown History fluorometholone 0.1 % eye 1 drp ophthalmic (eye) QODAY 08/13/24 Unknown History drops,suspension fluoxetine 10 mg capsule 10 mg PO DAILY depression 08/13/24 Unknown History losartan 25 mg tablet 25 mg PO DAILY blood pressure 08/13/24 Unknown History aspirin 81 mg tablet 81 mg PO DAILY #30 tabs 08/14/24 Unknown Rx atorvastatin 40 mg tablet 40 mg PO QHS #30 tabs 08/14/24 Unknown Rx hydrocodone-acetaminophen 5-325mg 1 tab PO Q6H PRN PRN Pain 3 days 11/04/24 Unknown Rx 5mg-325mg #10 TABLETS Allergy/AdvReac Type Severity Reaction Status Date / Time Penicillins Allergy Unknown Verified 11/04/24 16:20 meperidine HCl (From Demerol) AdvReac Intermediate Vomiting Verified 11/04/24 16:20 sertraline HCl (From Zoloft) AdvReac Intermediate Other Verified 11/04/24 16:20 acetaminophen (From AdvReac Mild Vomiting Verified 11/04/24 16:20 Darvocet-N 100) caffeine AdvReac Mild Other Verified 11/04/24 16:20 codeine AdvReac Mild Vomiting Verified 11/04/24 16:20 ephedrine AdvReac Mild Other Verified 11/04/24 16:20 propoxyphene napsylate (From AdvReac Mild Vomiting Verified 11/04/24 16:20 Darvocet-N 100) tramadol AdvReac Mild Vomiting Verified 11/04/24 16:20 ampicillin AdvReac Unknown Unknown Verified 11/04/24 16:20 griseofulvin AdvReac Unknown Unknown Verified 11/04/24 16:20 guaifenesin (From Entex [place]) AdvReac Unknown Unknown Verified 11/04/24 16:20 hydrocodone bitartrate (From AdvReac Unknown Unknown Verified 11/04/24 16:20 Vicodin) phenylephrine HCl (From AdvReac Unknown Unknown Verified 11/04/24 16:20 Entex LA) phenylpropanolamine HCl AdvReac Unknown Unknown Verified 11/04/24 16:20 (From Entex [place]) Sulfa (Sulfonamide AdvReac Unknown Unknown Verified 11/04/24 16:20 Antibiotics) Family History Father Cancer Surgical History History of bilateral knee arthroplasty History of carpal tunnel release H/O: hysterectomy Social History Smoking Status: Never smoker ROS ROS ED Constitutional Constitutional ED: Denies chills, fever(s), subjective or sweats Eyes Eyes: Denies blurry vision or change in vision Cardiovascular Cardiovascular: Denies chest pain or palpitations Respiratory/Chest Respiratory/Chest: Denies cough, dyspnea or dyspnea on exertion Gastrointestinal Gastrointestinal: Reports nausea; Denies abdominal pain, diarrhea, melena or vomiting Genitourinary Genitourinary ED: Reports urinary frequency; Denies dysuria or hematuria Musculoskeletal Musculoskeletal: Reports back pain Integumentary Denies rash Neurologic Neurologic: Denies paresthesias or weakness EXAM Physical Exam Const Vital Signs: 11/04/24 16:20 Temperature 98.4 F Temperature Source Oral Pulse Rate 66 Respiratory Rate 16 Blood Pressure 136/63 H Blood Pressure Mean 87 Pulse Ox 98 Oxygen Delivery Method Room Air Positive well nourished and well developed Constitutional Narrative: Time patient begins to grimace. Her vital signs reveal slight elevation of blood pressure. General Appearance ED: well developed; Negative for cyanotic, diaphoretic or pallor HEENT Reports moist mucous membranes HEENT Narrative: Head is atraumatic normocephalic. Ears normal. Patient wears glasses. Eyes PERRL and EOMs intact bilaterally General Eye ED: Negative for pale conjunctiva or scleral icterus Resp normal respiratory effort and clear to auscultation bilaterally Cardio regular rate, regular rhythm, S1 normal heart sound, S2 normal heart sound and no murmurs GI normal to inspection, nondistended, normoactive bowel sounds, non-tender, non-distended and no masses; Negative for hepatosplenomegaly Back/Spine no CVA tenderness Back/Spine Narrative: Left lower back pain near the posterior superior iliac spine on the left. Straight leg test is negative right and left. Strength is 5/5 lower extremity i.e. EHL, plantar dorsiflexion of the foot. Extremity normal to inspection General Extremety ED: Negative for edema or tenderness General Extremity: Negative for edema Neuro oriented x3 and CN's II-XII intact bilaterally Sensorium / Orientation: alert Psych mental status grossly normal Skin no rashes or lesions noted and no wounds General Skin Exam: Negative for jaundice or pallor MDM MDM MDM Narrative Medical decision making narrative: Differential diagnosis musculoskeletal and urologic. Urologic would include infection and ureterolithiasis. Will obtain UA. If there is blood with no evidence of pyuria or bacteria will obtain CT. Will obtain CBC to assess white count differential and BMP to assess renal function in the event that she needs antibiotics and a dose adjustment as needed especially since she is 84 years of age. Patient was seen August 2024 for TIA. Prior admission was September 2016. She was mid in 2016 for acute on chronic back pain. She has history of degenerative disc disease, osteopenia and psoriatic arthritis. History & Record Review Additional record(s) reviewed:: Prior outpatient record and Prior labs Lab Data Attestation: I reviewed the patient's lab results. Lab results narrative: CBC is unremarkable. Basic metabolic panel is unremarkable. Glucose is slightly elevated 127 with normal CO2 anion gap. Urinalysis is normal. Labs: Laboratory Results - last 24 hr 11/04/24 11/04/24 16:45 16:55 WBC 7.9 RBC 4.06 L Hgb 12.4 Hct 37.7 MCV 92.9 MCH 30.5 MCHC 32.9 RDW Std Deviation 49.1 H RDW Coeff of Kate 14.6 Plt Count 193 MPV 10.1 Immature Gran % (Auto) 0.400 Neut % (Auto) 67.2 Lymph % (Auto) 18.6 L [place] % (Auto) 11.9 H Eos % (Auto) 1.5 Baso % (Auto) 0.4 Absolute Neuts (auto) 5.3 Absolute Lymphs (auto) 1.46 Nucleated RBC % 0 Sodium 136 Potassium 3.9 Chloride 101 Carbon Dioxide 23.5 Anion Gap 11 BUN 6 Creatinine 0.62 L Estim Creat Clear Calc 37.60 L Est GFR (MDRD) Non-Af 88 BUN/Creatinine Ratio 9.8 L Glucose 127 H Calcium 8.9 Urine Color Straw Urine Clarity Clear Urine pH 6.5 Ur Specific [place] 1.010 Urine Protein 15 H Urine Glucose (UA) Normal Urine Ketones Negative Urine Occult Blood 10 H Urine Nitrite Negative Urine Bilirubin Negative Urine Urobilinogen Normal Ur Leukocyte Esterase Negative Urine RBC 0-5 SEEN Urine WBC 0-5 SEEN Ur Squamous Epith Cells 0-5 SEEN Urine Bacteria 0 SEEN Urine Mucus 0 SEEN Treatment and Re-Evaluation :: Will treat for [place] low back pain. There is no evidence of infection and history is not consistent with obstructing ureteral stone. Nurse informed every time she sits up she grimaces. Discharge Plan Triage Chief Complaint: Flank Pain ED Provider: Kai Macedo Dx/Rx/DC Orders Clinical Impression: Acute lumbar myofascial strain, Osteopenia, History of TIAs, Elevated blood-pressure reading without diagnosis of hypertension, Frequency of micturition Instructions: ED Back Sprain/Strain Prescriptions: New hydrocodone-acetaminophen 5-325 mg tablet 1 tab PO Q6H PRN PRN (Reason: Pain) 3 Days Qty: 10 0RF No Action L-Glutamine 500 MG capsule 500 mg PO DAILY ascorbic acid (vitamin C) [Vitamin C] 500 MG tablet 500 mg PO DAILY@0800 cholecalciferol (vitamin D3) 5,000 UNIT capsule 5,000 unit PO DAILY coenzyme Q10 [Co Q-10] 100 MG capsule 100 mg PO DAILY lutein 20 MG capsule 20 mg PO DAILY red yeast rice 600 MG capsule 600 mg PO BID methotrexate sodium 2.5 MG tablet 12.5 mg PO LORD Patient Comments: on sundays. folic acid 1 MG tablet 2 mg PO DAILY cyclobenzaprine 10 MG tablet 10 mg PO TID PRN PRN (Reason: Back pain/muscle spasms) Qty: 10 0RF donepezil 10 mg tablet 10 mg PO QHS amitriptyline 10 mg tablet 10 mg PO QHS fluorometholone 0.1 % drops,suspension 1 drp ophthalmic (eye) QODAY losartan 25 mg tablet 25 mg PO DAILY fluoxetine 10 mg capsule 10 mg PO DAILY atorvastatin 40 mg Tablet 40 mg PO QHS Qty: 30 0RF aspirin 81 mg tablet 81 mg PO DAILY Qty: 30 0RF Rx Instructions: [id number]. No prescription required Primary Care Provider: Edenilson Nicholson Referrals: dEenilson Nicholson DO [Primary Care Provider] - Activity Restrictions/Additional Instructions: Apply ice to your left lower back 6-8 times a day for the next 3 to 5 days. Avoid lifting, pulling or pushing anything or working in the garden hunched over Print Language: Portuguese Disposition Disposition: Home, Self Care
[2024-11-04 17:03] LABS: Mucous, Urine 0 SEEN /hpf (<or=2+)
[2024-11-04 17:12] LABS: Hematocrit 37.7 % (37-47); Hemoglobin 12.4 g/dL (12.0-15.0); Immature Granulocytes Count 0.030 X10^3/uL (0.0-0.0); Mean Corp Hgb Conc 32.9 g/dL (32-36); Mean Corpuscular Volume 92.9 fL (81-99); Mean Platelet Vol. 10.1 fl (6.2-12.0); NRBC Flagged by Analyzer 0 % (0-5); Platelet Count 193 K/mm3 (150-450); RBC Distribution Width CV 14.6 % (11.6-14.6); RBC Distribution Width SD 49.1 fl (35.1-43.9); Red Blood Count 4.06 M/mm3 (4.2-5.4); White Blood Count 7.9 K/mm3 (4.4-11.0)
[2024-11-04 17:17] LABS: Color, Urine Straw (Yellow); Glucose, Dipstick Normal (Normal); Ketone-Dipstick Negative (Negative); Leukocyte Esterase-Dipstick Negative /ul (Negative); Nitrite-Dipstick Negative (Negative); Occult Blood-Urine 10 /ul (Negative); Protein-Dipstick 15 mg/dl (Negative); Specific Gravity, Urine 1.010 (1.002-1.030); Urine Bilirubin Dipstick Negative (Negative)
[2024-11-04 17:24] LABS: Anion Gap 11 (5-15); BUN 6 mg/dL (4-19); BUN/Creat Ratio 9.8 RATIO (10-20); Calcium,Total 8.9 mg/dL (7.6-11.0); Carbon Dioxide 23.5 mmol/L (21.0-32.0); Chloride 101 mmol/L (98-108); Estimated Creatinine Clearance 37.60 ml/min (50-250); Glucose 127 mg/dL (70-99); Potassium 3.9 mmol/L (3.3-5.1)
[2024-11-04 17:38] LABS: Red Blood Cells-Urine 0-5 SEEN /hpf (0-5); Squamous Epithelial Cells - UA 0-5 SEEN /hpf (5-10)
[2024-11-04 18:29] VITALS: BP 140/67; PULSE 59; RESP 14; TEMP 36.6; O2SAT 97
== END 2024-11-04 18:31 | disposition home or self-care (01) ==
PROVIDERS: Emergency Provider Emergency Medicine; PCP Student in an Organized Health Care Education/Training Program; Visit Provider Emergency Medicine
DX: R10.9 Unspecified abdominal pain (principal); L40.50 Arthropathic psoriasis, unspecified; S39.012A Strain of muscle, fascia and tendon of lower back, initial encounter; Z90.710 Acquired absence of both cervix and uterus; M85.80 Other specified disorders of bone density and structure, unspecified site; Z79.899 Other long term (current) drug therapy; Z96.653 Presence of artificial knee joint, bilateral; Z86.73 Personal history of transient ischemic attack (TIA), and cerebral infarction without residual deficits; R03.0 Elevated blood-pressure reading, without diagnosis of hypertension; R35.0 Frequency of micturition
CPT/HCPCS: 80048; 81001; 85025; 96374; 96375; 99283; A4216; J2405

== ENCOUNTER → 2024-12-07 | Outpatient (CLI) | payer MEDICARE, SELFPAY ==
[2024-12-07 15:48] LABS: Hematocrit 36.5 % (37-47); Hemoglobin 11.9 g/dL (12.0-15.0); Immature Granulocytes Count 0.170 X10^3/uL (0.0-0.0); Mean Corp Hgb Conc 32.6 g/dL (32-36); Mean Corpuscular Volume 95.1 fL (81-99); Mean Platelet Vol. 11.2 fl (6.2-12.0); NRBC Flagged by Analyzer 0 % (0-5); Platelet Count 204 K/mm3 (150-450); RBC Distribution Width CV 15.0 % (11.6-14.6); RBC Distribution Width SD 50.9 fl (35.1-43.9); Red Blood Count 3.84 M/mm3 (4.2-5.4); White Blood Count 9.9 K/mm3 (4.4-11.0)
[2024-12-07 16:15] LABS: AST(SGOT) 46 U/L (<=31); Alanine Aminotransfer ALT/SGPT 69 U/L (<=34); Albumin, Serum 3.7 g/dL (3.4-4.8); Alkaline Phosphatase 115 U/L (35-104); Anion Gap 10 (5-15); BUN 14 mg/dL (4-19); BUN/Creat Ratio 19.6 RATIO (10-20); Calcium,Total 9.2 mg/dL (7.6-11.0); Carbon Dioxide 28.3 mmol/L (21.0-32.0); Chloride 102 mmol/L (98-108); Globulin 2.1 g/dL (2.2-4.2); Glucose 85 mg/dL (70-99); Potassium 4.4 mmol/L (3.3-5.1)
== END | disposition home or self-care (01) ==
LOC: MTLAB 12:37
PROVIDERS: PCP Student in an Organized Health Care Education/Training Program; Referring Provider Internal Medicine Rheumatology; Visit Provider Internal Medicine Rheumatology
DX: L40.59 Other psoriatic arthropathy (principal); Z79.899 Other long term (current) drug therapy; L40.8 Other psoriasis
CPT/HCPCS: 36415; 80053; 85025

== ENCOUNTER → 2024-12-17 | Outpatient (CLI) | payer MEDICARE, SELFPAY ==
--- NOTE | 2024-12-17 09:30 | US_ITS ---
PROCEDURE: LIVER 12/17/2024 REASON FOR EXAM: ELEVATED LIVER ENZYMES TECHNIQUE: Procedure Code: USLI Modality: US Procedure: LIVER COMPARISON: None FINDINGS: Liver: Fatty infiltration of the liver. The liver is nonenlarged. Gallbladder: No stones, sludge, wall thickening or tenderness. Common bile duct: Normal measuring 5.7 mm Pancreas: There is a 1.9 cm 1.3 cm 1.5 cm septated cyst in the body of the pancreas.. Other: Visualized portions of the right kidney are unremarkable. No right upper quadrant ascites. US/Liver IMPRESSION: Fatty infiltration of the liver. 1.9 cm 1.3 cm 1.5 cm septated cyst in the body of the pancreas. Correlation wi th CT scan recommended if clinically indicated. Reading Location: [place] [id number]
--- NOTE | 2024-12-17 09:30 | US_ITS ---
PROCEDURE: LIVER 12/17/2024 REASON FOR EXAM: ELEVATED LIVER ENZYMES TECHNIQUE: Procedure Code: USLI Modality: US Procedure: LIVER COMPARISON: None FINDINGS: Liver: Fatty infiltration of the liver. The liver is nonenlarged. Gallbladder: No stones, sludge, wall thickening or tenderness. Common bile duct: Normal measuring 5.7 mm Pancreas: There is a 1.9 cm 1.3 cm 1.5 cm septated cyst in the body of the pancreas.. Other: Visualized portions of the right kidney are unremarkable. No right upper quadrant ascites. US/Liver IMPRESSION: Fatty infiltration of the liver. 1.9 cm 1.3 cm 1.5 cm septated cyst in the body of the pancreas. Correlation wi th CT scan recommended if clinically indicated. Reading Location: [place] [id number]
== END | disposition home or self-care (01) ==
LOC: US 09:21 → OPUS 09:22
PROVIDERS: PCP Student in an Organized Health Care Education/Training Program; Referring Provider Internal Medicine Rheumatology; Visit Provider Internal Medicine Rheumatology
DX: L40.59 Other psoriatic arthropathy (principal); Z79.899 Other long term (current) drug therapy
CPT/HCPCS: 76705

== ENCOUNTER → 2025-02-01 | Outpatient (CLI) | payer MEDICARE, SELFPAY ==
[2025-02-01 15:02] LABS: Hematocrit 41.8 % (37-47); Hemoglobin 13.4 g/dL (12.0-15.0); Immature Granulocytes Count 0.030 X10^3/uL (0.0-0.0); Mean Corp Hgb Conc 32.1 g/dL (32-36); Mean Corpuscular Volume 92.7 fL (81-99); Mean Platelet Vol. 11.9 fl (6.2-12.0); NRBC Flagged by Analyzer 0 % (0-5); Platelet Count 191 K/mm3 (150-450); RBC Distribution Width CV 13.8 % (11.6-14.6); RBC Distribution Width SD 46.5 fl (35.1-43.9); Red Blood Count 4.51 M/mm3 (4.2-5.4); White Blood Count 5.5 K/mm3 (4.4-11.0)
[2025-02-01 15:22] LABS: AST(SGOT) 29 U/L (<=31); Alanine Aminotransfer ALT/SGPT 24 U/L (<=34); Albumin, Serum 3.9 g/dL (3.4-4.8); Alkaline Phosphatase 139 U/L (35-104); Anion Gap 9 (5-15); BUN 11 mg/dL (4-19); BUN/Creat Ratio 16.8 RATIO (10-20); Calcium,Total 9.2 mg/dL (7.6-11.0); Carbon Dioxide 27.7 mmol/L (21.0-32.0); Chloride 104 mmol/L (98-108); Globulin 2.4 g/dL (2.2-4.2); Glucose 91 mg/dL (70-99); Potassium 4.6 mmol/L (3.3-5.1)
== END | disposition home or self-care (01) ==
LOC: MTLAB 13:06
PROVIDERS: PCP Student in an Organized Health Care Education/Training Program; Referring Provider Internal Medicine Rheumatology; Visit Provider Internal Medicine Rheumatology
DX: L40.59 Other psoriatic arthropathy (principal); Z79.899 Other long term (current) drug therapy
CPT/HCPCS: 36415; 80053; 85025

== ENCOUNTER → 2025-02-26 | Outpatient (CLI) | payer MEDICARE, SELFPAY ==
[2025-02-26 12:16] LABS: AST(SGOT) 27 U/L (<=31); Alanine Aminotransfer ALT/SGPT 28 U/L (<=34); Albumin, Serum 3.6 g/dL (3.4-4.8); Alkaline Phosphatase 112 U/L (35-104); Anion Gap 8 (7-18); BUN 14 mg/dL (4-19); BUN/Creat Ratio 19.7 RATIO (10-20); Calcium,Total 9.0 mg/dL (7.6-11.0); Carbon Dioxide 27.4 mmol/L (20.0-29.0); Chloride 105 mmol/L (96-106); Globulin 2.3 g/dL (2.2-4.2); Glucose 97 mg/dL (70-99); Potassium 4.4 mmol/L (3.5-5.1)
== END | disposition home or self-care (01) ==
LOC: MTLAB 10:38
PROVIDERS: PCP Student in an Organized Health Care Education/Training Program; Referring Provider Internal Medicine Rheumatology; Visit Provider Internal Medicine Rheumatology
DX: L40.59 Other psoriatic arthropathy (principal); Z79.899 Other long term (current) drug therapy
CPT/HCPCS: 36415; 80053

== ENCOUNTER 2025-03-03 15:15 | Emergency (ER) | payer MEDICARE, SELFPAY ==
[2025-03-03 15:16] VITALS: BP 179/75; PULSE 65; RESP 18; TEMP 36; O2SAT 99; BMI 25.2
[2025-03-03 16:55] VITALS: BP 168/81; PULSE 74; RESP 14; O2SAT 96
--- NOTE | 2025-03-03 17:11 | CT_ITS ---
PROCEDURE: BRAIN/HEAD WITHOUT CONTRAST 03/03/2025 REASON FOR EXAM: TRAUMA TECHNIQUE: Procedure Code: CTBR Modality: CT Procedure: BRAIN/HEAD WITHOUT CONTRAST Coronal and Sagittal reconstruction series were provided. One or more dose reduction techniques were used (e.g., Automated exposure control, adjustment of the mA and/or kV according to patient size, use of iterative reconstruction technique. COMPARISON: CT head 08/13/2024 FINDINGS: There is no extra-axial or intra-axial intracranial hemorrhage. No mass effect or midline shift is seen. The ventricles, sulci, and cisterns are normal in size and shape for the patient's age. There is normal simeon-white matter differentiation. The posterior fossa is grossly unremarkable. The skull is unremarkable. Visualized paranasal sinuses are clear. The mastoid air cells show normal translucency. CT/Brain/Head without Contrast IMPRESSION: No intracranial hemorrhage. No mass effect or midline shift. Reading [facility]
--- NOTE | 2025-03-03 17:11 | CT_ITS ---
PROCEDURE: CT SPINE CERVICAL WITHOUT CONTRAST 03/03/2025 REASON FOR EXAM: TRAUMA TECHNIQUE: Procedure Code: CTSPC Modality: CT Procedure: SPINE CERVICAL WITHOUT CONTRAS Coronal and Sagittal reconstruction series were provided. One or more dose reduction techniques were used (e.g., Automated exposure control, adjustment of the mA and/or kV according to patient size, use of iterative reconstruction technique. RADIATION DOSE SUMMARY: CTDlvol: 13.2 mGy DLP: 266.19 mGycm COMPARISON: CTA neck 08/13/2024 FINDINGS: No acute fracture or subluxation. Straightening of the cervical lordosis. Slight degenerative grade 1 anterolisthesis of C6 on C7, C7 on T1, and T1 on T2. 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 Multilevel spondylotic changes with varying degrees of disc space narrowing, scattered small Schmorl's nodes and/or subchondral cysts, anterior osteophytosis, uncovertebral spurring and hypertrophic facet arthropathy, most pronounced at C6-7. Multilevel moderate spinal canal and bilateral osseous neural foraminal narrowing. No prevertebral soft tissue swelling. CT/Spine Cervical without Contras IMPRESSION: No acute fracture or traumatic malalignment. Multilevel spondylotic changes as described above. Reading Location: [id number]
--- NOTE | 2025-03-03 17:20 | RAD_ITS ---
PROCEDURE: RIBS UNI MIN 3V W/PA CHEST 03/03/2025 REASON FOR EXAM: FALL TECHNIQUE: Procedure Code: RADRIB Modality: DX Procedure: RIBS UNI MIN 3V W/PA CHEST COMPARISON: None. FINDINGS: Hardware and support lines: None. Heart: Negative. Lungs: Negative for pneumothorax. Negative for infiltrates, or pulmonary edema. Pleura: No pleural thickening. No pleural effusion. Mediastinum and aorta: Negative for hilar adenopathy. Mildly tortuous thoracic aorta. Bones: Additionally left-sided ribs obtained. No fractures. Age-appropriate degenerative changes of the spine. Other: Remainder of the exam negative. RAD/Ribs Uni Min 3V w/PA Chest IMPRESSION: Negative for acute cardiopulmonary disease Negative for pneumothorax. Reading Location: [id number]
--- NOTE | 2025-03-03 17:21 | ED.VIS.FALL ---
HPI HPI - Fall History of Present Illness Chief Complaint: Fall Narrative Narrative: Chief complaint and HPI: 85-year-old female with past medical history of osteopenia, HLD, depression, HTN, psoriatic arthritis on methotrexate presents for evaluation after a mechanical fall. Patient states that she forgot there was a step outside which she missed and tripped. Fell forward. Hit mostly her left breas into the ground. She did hit her head. No LOC. Not on blood thinners. Also obtained a abrasion to the left hand which she denies any pain. She denies any back pain, chest pain, shortness of breath, abdominal pain, nausea, vomiting. Has ambulated since the incident. Review of systems: See HPI Medications: As listed on the chart Allergies: As listed on the chart PFSH: Per chart Vital signs: As listed on the chart. Reviewed. Physical exam: Gen: A&O x3, NAD Head: Normocephalic, small hematoma to the left frontal forehead Eyes: No sclera icterus, conjunctiva clear, PERRL, EOMI ENT: TMs clear BL, moist mucous membranes, face atraumatic without tenderness Neck: Trachea midline, full range of motion, no midline spinal tenderness, no bony step-offs, mild tenderness to palpation of the left paraspinal musculature of the cervical spine CV: RRR, no murmurs, patient has tenderness to palpation of the left breast with mild ecchymosis-no large hematoma or swelling, patient has tenderness to palpation of the left lateral mid ribs without obvious signs of trauma Resp: Lungs CTA BL, no w/r/c GI: Abd soft, non-distended, non-tender, no r/r/g Musc: Full ROM, no deformity, no bony extremity tenderness, no spinal TTP, no lisa step-offs Skin: Warm, dry, abrasion to the left thenar eminence without tenderness, radial pulses +2 bilaterally Neuro: Alert, oriented, grossly intact, sensation intact, GCS 15 Psych: Cooperative, appropriate mood and affect [facility] Medical History DDD (degenerative disc disease) Psoriatic arthritis Home Medications ?Medication ?Instructions ?Recorded ?Last Taken ?Type ascorbic acid (vitamin C) 500 mg 500 mg PO DAILY@0800 SUPPLEMENT 09/07/16 08/12/24 History tablet (Vitamin C) cholecalciferol (vitamin D3) 125 5,000 unit PO DAILY BONE HEALTH 09/07/16 09/06/16 History mcg (5,000 unit) capsule coenzyme Q10 100 mg capsule (Co 100 mg PO DAILY SUPPLEMENT 09/07/16 08/12/24 History Q-10) folic acid 1 mg tablet 2 mg PO DAILY SUPPLEMENT 09/07/16 08/12/24 History glutamine 500 mg capsule 500 mg PO DAILY SUPPLEMENT 09/07/16 Unknown History (L-Glutamine) lutein 20 mg capsule 20 mg PO DAILY SUPPLEMENT 09/07/16 08/12/24 History methotrexate sodium 2.5 mg tablet 12.5 mg PO LORD ARHTRITIS 09/07/16 08/08/24 History red yeast rice 600 mg capsule 600 mg PO BID SUPPLEMENT 09/07/16 08/12/24 History cyclobenzaprine 10 mg tablet 10 mg PO TID PRN PRN Back 09/11/16 Unknown Rx pain/muscle spasms #10 tabs amitriptyline 10 mg tablet 10 mg PO QHS mood 08/13/24 Unknown History donepezil 10 mg tablet 10 mg PO QHS memory 08/13/24 Unknown History fluorometholone 0.1 % eye 1 drp ophthalmic (eye) QODAY 08/13/24 Unknown History drops,suspension fluoxetine 10 mg capsule 10 mg PO DAILY depression 08/13/24 Unknown History losartan 25 mg tablet 25 mg PO DAILY blood pressure 08/13/24 Unknown History aspirin 81 mg tablet 81 mg PO DAILY #30 tabs 08/14/24 Unknown Rx atorvastatin 40 mg tablet 40 mg PO QHS #30 tabs 08/14/24 Unknown Rx hydrocodone-acetaminophen 5-325mg 1 tab PO Q6H PRN PRN Pain 3 days 11/04/24 Unknown Rx 5mg-325mg #10 TABLETS Allergy/AdvReac Type Severity Reaction Status Date / Time Penicillins Allergy Unknown Verified 03/03/25 15:22 meperidine HCl (From Demerol) AdvReac Intermediate Vomiting Verified 03/03/25 15:22 sertraline HCl (From Zoloft) AdvReac Intermediate Other Verified 03/03/25 15:22 acetaminophen (From AdvReac Mild Vomiting Verified 03/03/25 15:22 Darvocet-N 100) caffeine AdvReac Mild Other Verified 03/03/25 15:22 codeine AdvReac Mild Vomiting Verified 03/03/25 15:22 ephedrine AdvReac Mild Other Verified 03/03/25 15:22 propoxyphene napsylate (From AdvReac Mild Vomiting Verified 03/03/25 15:22 Darvocet-N 100) tramadol AdvReac Mild Vomiting Verified 03/03/25 15:22 ampicillin AdvReac Unknown Unknown Verified 03/03/25 15:22 griseofulvin AdvReac Unknown Unknown Verified 03/03/25 15:22 guaifenesin (From Entex [place]) AdvReac Unknown Unknown Verified 03/03/25 15:22 hydrocodone bitartrate (From AdvReac Unknown Unknown Verified 03/03/25 15:22 Vicodin) phenylephrine HCl (From AdvReac Unknown Unknown Verified 03/03/25 15:22 Entex LA) phenylpropanolamine HCl AdvReac Unknown Unknown Verified 03/03/25 15:22 (From Entex [place]) Sulfa (Sulfonamide AdvReac Unknown Unknown Verified 03/03/25 15:22 Antibiotics) Family History Father Cancer Surgical History History of bilateral knee arthroplasty History of carpal tunnel release H/O: hysterectomy Social History Smoking Status: Never smoker EXAM Physical Exam Const Vital Signs: 03/03/25 15:16 03/03/25 16:53 03/03/25 16:55 Temperature 96.8 F L Temperature Source Temporal Pulse Rate 65 74 Respiratory Rate 18 14 Respiratory Effort Normal Non-Labored Blood Pressure 179/75 H 168/81 H Blood Pressure Mean 109 110 Pulse Ox 99 96 Oxygen Delivery Method Room Air Room Air Room Air MDM MDM MDM Narrative Medical decision making narrative: 85-year-old female with past medical history of osteopenia, HLD, depression, HTN, psoriatic arthritis on methotrexate presents for evaluation after a mechanical fall. Patient states that she forgot there was a step outside which she missed and tripped. Fell forward. Hit mostly her left breast into the ground. She did hit her head. No LOC. Not on blood thinners. Also obtained an abrasion to the left hand which she denies any pain. On presentation, patient no acute distress. See physical exam findings. Patient offered pain medicine but declined. Differential diagnosis includes but is not limited to closed head injury, scalp hematoma, intracranial bleed, neck strain, fracture, rib contusion, rib fracture. Given this was purely mechanical fall, I do not think any laboratory workup is needed. CT of the head and cervical spine will be obtained. X-rays of the left ribs will be obtained. Given patient has no bony tenderness where the abrasion is on her left hand I do not think an x-ray is needed. Patient is in agreement. CT of the head shows no acute intracranial hemorrhage or traumatic injury. CT of the cervical spine without any traumatic injury. Chronic changes. X-ray of the ribs/chest was personally viewed interpreted by me, ED physician. No obvious fracture or dislocation. No pneumothorax. Radiology in agreement. Patient's pain is likely secondary to a hematoma and contusion. Recommend Tylenol and Motrin as needed for pain. Follow-up with primary care physician. Patient is ambulated without difficulty. Patient able to discharge home. She confirmed understand the plan. Impression: 1. Mechanical fall 2. Scalp hematoma 3. Left breast contusion 4. Left rib contusion 4. Cervical spasm Radiography Diagnostic Testing: Clinical Impression(s) from Imaging Studies Brain CT 03/03/25 17:11 IMPRESSION: No intracranial hemorrhage. No mass effect or midline shift. Reading [facility] Cervical Spine CT 03/03/25 17:11 IMPRESSION: No acute fracture or traumatic malalignment. Multilevel spondylotic changes as described above. Reading Location: [id number] Ribs w/Chest X-Ray 03/03/25 17:20 IMPRESSION: Negative for acute cardiopulmonary disease Negative for pneumothorax. Reading Location: [id number] Discharge Plan Triage Chief Complaint: Fall ED Provider: Julius Pete Dx/Rx/DC Orders Clinical Impression: Fall, Contusion of rib, Abrasion, Hematoma of frontal scalp Instructions: ED Abrasion, ED Scalp Contusion, ED Bruise, Rib Prescriptions: No Action L-Glutamine 500 MG capsule 500 mg PO DAILY ascorbic acid (vitamin C) [Vitamin C] 500 MG tablet 500 mg PO DAILY@0800 cholecalciferol (vitamin D3) 5,000 UNIT capsule 5,000 unit PO DAILY coenzyme Q10 [Co Q-10] 100 MG capsule 100 mg PO DAILY lutein 20 MG capsule 20 mg PO DAILY red yeast rice 600 MG capsule 600 mg PO BID methotrexate sodium 2.5 MG tablet 12.5 mg PO LORD Patient Comments: on sundays. folic acid 1 MG tablet 2 mg PO DAILY cyclobenzaprine 10 MG tablet 10 mg PO TID PRN PRN (Reason: Back pain/muscle spasms) Qty: 10 0RF hydrocodone-acetaminophen 5-325 mg tablet 1 tab PO Q6H PRN PRN (Reason: Pain) 3 Days Qty: 10 0RF donepezil 10 mg tablet 10 mg PO QHS amitriptyline 10 mg tablet 10 mg PO QHS fluorometholone 0.1 % drops,suspension 1 drp ophthalmic (eye) QODAY losartan 25 mg tablet 25 mg PO DAILY fluoxetine 10 mg capsule 10 mg PO DAILY atorvastatin 40 mg Tablet 40 mg PO QHS Qty: 30 0RF aspirin 81 mg tablet 81 mg PO DAILY Qty: 30 0RF Rx Instructions: [id number]. No prescription required Primary Care Provider: Edenilson Nicholson Referrals: Edenilson Nicholson DO [Primary Care Provider, Medical] - 3-5 Days Activity Restrictions/Additional Instructions: Tylenol and Motrin as needed for pain. Follow-up with your primary care physician. Return back to ED if symptoms change or worsen. Print Language: Martiniquais Disposition Disposition: Home, Self Care
--- OUTSIDE RECORDS SUMMARY | 2025-03-03 18:02 | XMS RPT_ITS | CCD ---
Author Organization [facility] Care Team Providers Care Associate Dean Of Students Name Role Phone Edenilson Nicholson DO Primary Care Provider Ino Purdy MD Unavailable Unavailable Fermín Cartwright MD Unavailable Magnolia Preciado PT Unavailable Edenilson Nicholson DO Primary Care Provider Ino Purdy MD Unavailable Unavailable Fermín Cartwright MD Unavailable Magnolia Preciado PT Unavailable EDENILSON NICHOLSON DO Primary Care Physician DR MIRA VILLATORO DO Attending Unavailable EDENILSON NICHOLSON DO Primary Care Unavailable ANGELINE RAY Referring Unavailable EDENILSON NICHOLSON Primary Care Unavailable EDENILSON NICHOLSON Referring Unavailable EDENILSON NICHOLSON Primary Care Unavailable Edenilson Nicholson DO Primary Care Provider Xavier ENGINE HEAD REPAIRER.Kandi BROWN Unavailable Cory ENGINE HEAD REPAIRER.Angeline BROWN Unavailable MAXIMO PRESCOTT Attending Unavailable EDENILSON NICHOLSON Primary Care Unavailable EDENILSON NICHOLSON Primary Care Unavailable MARGARET MENDOZA DO Attending Unavailable EDENILSON NICHOLSON Primary Care Unavailable Dr. Edenilson Nicholson DO Primary Care Provider [phone] Lefty LOPEZ, Dr. Arroyo Attending Provider Dr. Dina Olea MD Referring Provider Dr. Julius Pete DO Referring Provider Juan R ADAIR, Dr. Madrid Emergency Provider Adelso ADAIR, Dr. Greene Admit Provider Adelso ADAIR, Dr. Greene Attending Provider Adelso ADAIR, Dr. Greene Other Provider Pop Toro MD Other Provider Unavailable Chin LOPEZ, Dr. Rao Other Provider Yuliet Messer MD Other Provider Unavailable Dr. Elissa Pyle DO Other Provider Lopez LOPEZ, Dr. Harrell Other Provider Donte LOPEZ, Dr. Cruz Other Provider Zenon LOPEZ, Dr. Landeros Other Provider Michelle LOPEZ, Dr. Corbett Other Provider Darío LOPEZ, Dr. Alex Other Provider Nahun LOPEZ, Dr. Mendiola Other Provider Vern LOPEZ, Carol Other Provider Abeba LOPEZ, Dr. Krause Other Provider Remy LOPEZ, Dr. Andersen Other Provider Svitlana LOPEZ, Dr. Mendosa Other Provider Blaise LOPEZ, Dr. Lucia Dubose Other Provider Agus LOPEZ, Dr. Aguilera Other Provider Saurav LOPEZ, Dr. Dinh Other Provider April LOPEZ, Dr. Gardiner Other Provider Adelso LOPEZ, Dr. Souza Other Provider Unavailable Olamide LOPEZ, Youmilena Other Provider Unavailable Dr. Jerome Brasher DO Attending Provider Darren Mccarthy Attending Provider Obdulio LOPEZ, Dr. Shah Attending Provider Unavaila ble Dr. Jerome Brasher DO Other Provider Jose Luis ENGINE HEAD REPAIRER.Maria Elena BROWN Unavailable Dr. Jerome Brasher DO Referring Provider Dr. Eednilson Nicholson DO Primary Care Provider Dr. Dina Olea MD Attending Provider Dr. Dina Olea MD Referring Provider Remington LOPEZ, Dr. Quinn Emergency Provider NICHOLSON, EDENILSON L Primary Care Unavailable PRAISLER-WOOD, ABIGAIL Attending Unavailable TO DURAN Referring Unavailab le NICHOLSON, EDENILSON L Primary Care Unavailable SAMANTHA JORDAN Attending Unavailable KYM LEWIS Attending Unavailable NICHOLSON, EDENILSON L Primary Care Unavailable NICHOLSON, EDENILSON L Primary Care Unavailable AMERICA MENDEZ Attending Unavailable NICHOLSON, EDENILSON L Primary Care Unavailable KANDI PARK Attending UnavailMARY Sheriff Attending Unavailable CORY, ANGELINE Referring Unavailable NICHOLSON, EDENILSON L Primary Care Unavailable NICHOLSON, EDENILSON L Primary Care Unavailable AYESHA ABIGAIL Referring Unavailable HACHARISSA FLOWER Attending Unavailable NICHOLSON, EDENILSON L Primary Care Unavailable NICHOLSON, EDENILSON L Primary Care Unavailable NICHOLSON, EDENILSON L Attending Unavailable OLMAN PAIZ Attending Unavailable NICHOLSON, EDENILSON L Primary Care Unavailable SAMANTHA JORDAN Referring Unavailable BAMBI ALEX Attending Unavailable NICHOLSON, EDENILSON L Primary Care Unavailable CORY, ANGELINE Attending Unavailable NICHOLSON, EDENILSON L Primary Care Unavailable NICHOLSON, EDENILSON L Primary Care Unavailable NICHOLSON, EDENILSON L Attending Unavailable NICHOLSON, EDENILSON L Primary Care Unavailable LANI ARNDT Attending Unavailable NICHOLSON, EDENILSON L Primary Care Unavailable NICHOLSON, EDENILSON L Primary Care Unavailable CLRULA LANI Referring Unavailable CORY, ANGELINE Attending Unavailable NICHOLSON, EDENILSON L Primary Care Unavailable HAAGEN, CHARISSA Referring Unavailable NICHOLSON, EDENILSON L Primary Care Unavailable NICHOLSON, EDENILSON L Attending Unavailable NICHOLSON, EDENILSON L Primary Care Unavailable CORY, ANGELINE Referring Unavailable NICHOLSON, EDENILSON L Primary Care Unavailable NICHOLSON, EDENILSON L Primary Care Unavailable SELF Referring Unavailable JUAN MENDEZ Referring Unavailable NICHOLSON, EDENILSON L Primary Care Unavailable CORY, ANGELINE Attending Unavailable NICHOLSON, EDENILSON L Primary Care Unavailable TO DURAN Attending Unavailab le NICHOLSON, EDENILSON L Primary Care Unavailable OLMAN PAIZ Attending Unavailable NICHOLSON, EDENILSON L Primary Care Unavailable SAMANTHA JORDAN Referring Unavailable CORY, ANGELINE Referring Unavailable KATHRYN FLORES Attending Unavailable NICHOLSON, EDENILSON L Primary Care Unavailable NICHOLSON, EDENILSON L Primary Care Unavailable SHERRIE GONZALES Referring Unavailable CORY, ANGELINE Attending Unavailable NICHOLSON, EDENILSON L Primary Care Unavailable NICHOLSON, EDENILSNO L Primary Care Unavailable NICHOLSON, EDENILSON L Primary Care Unavailable NICHOLSON, EDENILSON L Primary Care Unavailable CORY, ANGELINE Attending Unavailable NICHOLSON, EDENILSON L Primary Care Unavailable MARY KEITH Referring Unavailable NICHOLSON, EDENILSON L Primary Care Unavailable TO DURAN Attending Unavailab le NICHOLSON, EDENILSON L Primary Care Unavailable Vellanki, Dina Referring Unavailable Vellanki, Dina Attending Unavailable Nicholson, Edenilson Primary Care Unavailable Pop Toro Consulting Unavailable Julius Pete Referring Unavailkathy e Nicholson, Edenilson Primary Care Unavailable Ramona Darden Admitting Unavailable Jerome Brasher Attending Unavailable Maira Neely Consulting Unavailable Yuliet Messer Consulting Unavailable Elissa Pyle Consulting Unavailable Conner Marroquincia Consulting Unavailable Anthony Kent Consulting Unavailable Leti Yarbrough Consulting Unavailable Aric Martinez Consulting Unavailable Isai Chanel Consulting Unavailable Maury Garnica Consulting Unavailable Carol Porras Consulting Unavailable Margaret Us Consulting Unavailable Nathaly Alberto Consulting Unavailable Navya Shane Consulting Unavailable Blaise, Arunad Sedrick Consulting UnavailWilly Juares Consulting Unavailable Saurav Rami Consulting Unavailable Abdifatah Chen Consulting Unavailable Libby Darden Consulting Unavailable Rahul Quiñonez Consulting Unavailable Ramona Darden Consulting Unavailable Vellanki, Dina Referring Unavailable Vellanki, Dina Attending Unavailable Nicholson, Edenilson Primary Care Unavailable Maximo Sears Attending Unavailable RahateriJerome Referring Unavailable Nicholson, Edenilson Primary Care Unavailable Vellanki, Dina Referring Unavailable Vellanki, Dina Attending Unavailable Nicholson, Edenilson Primary Care Unavailable Jopperi, Jerome Referring Unavailable Nicholson, Edenilson Primary Care Unavailable Jopperi, Jerome Attending Unavailable Vellanki, Dina Referring Unavailable Vellanki, Dina Attending Unavailable Nicholson, Edenilson Primary Care Unavailable Jaspal Macedoo Attending Unavailable Nicholson, Edenilson Primary Care Unavailable Vellanki, Dina Referring Unavailable Vellanki, Dina Attending Unavailable Nicholson, Edenilson Primary Care Unavailable Pop Toro Consulting Unavailable Julius ePte Referring UnavailRamona Stock Admitting Unavailable Nicholson, Edenilson Primary Care Unavailable Jopperi, Jerome Attending Unavailable Maira Neely Consulting Unavailable Hindrohit Yuliet Consulting Unavailable Edenilson Elissa Consulting Unavailable Sharri Marroquin Consulting Unavailable Anthony Kent Consulting Unavailable Leti Yarbrough Consulting Unavailable Aric Martinez Consulting Unavailable Isai Chanel Consulting Unavailable Maury Garnica Consulting Unavailable Carol Porras Consulting Unavailable Margaret Us Consulting Unavailable Nathaly Alberto Consulting Unavailable Navya Shane Consulting Unavailable Lucia Welsh Consulting UnavailWilly Juares Consulting Unavailable Allegra Mg Consulting Unavailable Abdifatah Chen Consulting Unavailable Libby Darden Consulting Unavailable Rahul Quiñonez Consulting Unavailable Ramona Darden Consulting Unavailable Jerome Brasher Consulting Unavailable Darren Mccarthy Attending Unavailable Pablo Mak Attending Unavailable Nicholson, Edenilson Primary Care Unavailable Vellanki, Dina Referring Unavailable Vellanki, Dina Attending Unavailable Nicholson, Edenilson Primary Care Unavailable Vellanki, Dina Referring Unavailable Vellanki, Dina Attending Unavailable Nicholson, Edenilson Primary Care Unavailable Allergies Allergy Classification Reported Allergen(s) Allergy Type Date of Onset Reaction(s) Facility (20 sources) Acetaminophen / HYDROcodone; Translations: [HYDROCODONE-ACET AMINOPHEN] Drug Allergy 07-07-19 16 Itching [facility] (20 sources) Caffeine; Translations: [CAFFEINE] Drug Allergy 12-02-19 05 Other [facility] (20 sources) Codeine; Translations: [CODEINE] Drug Allergy 12-02-19 05 Vomiting [facility] (20 sources) ePHEDrine; Translations: [EPHEDRINE] Drug Allergy 12-02-19 05 Other: See Comments [facility] (20 sources) Griseofulvin; Translations: [GRISEOFULVIN] Drug Allergy 12-02-19 05 Unknown [facility] (20 sources) guaiFENesin / Phenylephrine; Translations: [PHENYLEPHRINE- AIFENESIN] Drug Allergy 12-02-19 05 [facility] (20 sources) Meperidine; Translations: [MEPERIDINE (PF)] Drug Allergy 07-07-19 16 Vomiting [facility] (20 sources) Milk Drug Intolerance 11-16-19 17 Intolerance [facility] (20 sources) Sertraline; Translations: [SERTRALINE HCL] Drug Allergy 09-26-19 07 Mental Status Change [facility] Work Phone: (20 sources) traMADol; Translations: [TRAMADOL] Drug Allergy 12-21-19 12 Other: See Comments [facility] Work Phone: (20 sources) Propoxyphene N-Acetaminophen; Translations: [PROPOXYPHENE N-ACETAMINOPHEN] Drug Intolerance 12-02-19 05 Vomiting [facility] (12 sources) Acetaminophen Drug Allergy 09-08-19 17 Vomiting [facility] (12 sources) Ampicillin Drug Allergy 09-08-19 17 Unknown [facility] (12 sources) guaiFENesin Drug Allergy 09-08-19 17 [facility] (13 sources) HYDROcodone; Translations: [hydrocodone bitartrate] Drug Allergy 09-08-19 17 [facility] (13 sources) Meperidine; Translations: [meperidine HCl] Drug Allergy 09-08-19 17 [facility] (13 sources) Penicillins; Translations: [Penicillins] Allergy to substance 09-08-19 17 [facility] (13 sources) Phenylephrine; Translations: [phenylephrine HCl] Drug Allergy 09-08-19 17 [facility] (13 sources) Phenylpropanolami ne; Translations: [phenylpropanolam ine HCl] Drug Allergy 09-08-19 17 [facility] (13 sources) Propoxyphene; Translations: [propoxyphene napsylate] Drug Allergy 09-08-19 17 Vomiting [facility] (13 sources) Sulfonamides (Antibiotic); Translations: [Sulfa (Sulfonamide Antibiotics)] Propensity to adverse reactions 09-08-19 Unknown [facility] (4 sources) MILK CONTAINING PRODUCTS (DAIRY); Translations: [MILK CONTAINING PRODUCTS (DAIRY)] Propensity to adverse reactions to drug (disorder) 11-16-19 [facility] Repository (1 source) Acetaminophen Drug Allergy 11-05-19 [facility] (1 source) Ampicillin Drug Allergy 11-05-19 [facility] (1 source) Caffeine Drug Allergy 11-05-19 [facility] (1 source) Codeine Drug Allergy 11-05-19 [facility] (1 source) ePHEDrine Drug Allergy 11-05-19 [facility] (1 source) Griseofulvin Drug Allergy 11-05-19 [facility] (1 source) guaiFENesin Drug Allergy 11-05-19 [facility] (1 source) Sertraline Drug Allergy 11-05-19 [facility] (1 source) traMADol Drug Allergy 11-05-19 [facility] Repository Medications Current Medications Medication Drug Class(es) Dates Sig (Normalized) Sig (Original) acetaminophen 325 mg / HYDROcodone bitartrate 5 mg oral tablet (1 source) Opioid Agonist Start: 11-04-2024 take 1 tablet by mouth every six hours as needed for pain Hydrocodone-Acetamino phen 5-325 mg tablet Active 1 {tbl} PO EVERY 6 HOURS NEEDED as needed for Pain 10 3 0 November 04, 2024 Acute myofascial strain of lumbar region Nonsteroidal anti-inflammatory drug (NSAID) contraindicated Strain of muscle, fascia and tendon of lower back, initial encounter Procedure and treatment not carried out because of other contraindication amitriptyline hydrochloride 10 mg oral tablet (20 sources) Tricyclic Antidepressant Start: 04-27-2020 End: 11-11-2024 take 1 tablet by mouth once daily at bedtime amitriptyline (ELAVIL) 10 mg tablet Take 1 tablet by mouth daily at bedtime. 90 tablet 2 11/11/2024 Active Comment on above: Take 1 tablet [...] on above: Take 4 capsules by m outh one time only for 1 dose. Take 1 hour prior to appointment take 1 capsule by mo uth three times a day until finished ascorbic acid 500 mg oral tablet (20 sources) Vitamin C Start: 11-10-19 End: 07-16-19 take 1 tablet by mouth once daily Ascorbic Acid (Vitamin C) (Vitamin C) 500 MG tablet Active 500 mg PO DAILY@0800 September 07, 2016 12:00am SUPPLEMENT Comment on above: Take one(1) tablet d aily. aspirin 81 mg oral tablet (14 sources) Platelet Aggregation Inhibitor, Nonsteroidal Anti-inflammatory Drug Start: 08-15-19 take 1 tablet by mouth once daily Aspirin 81 mg tablet Active 81 mg PO DAILY 30 August 14, 2024 12:00am Pumt-atl-[id number]. No prescription required atorvastatin 40 mg oral tablet (15 sources) HMG-CoA Reductase Inhibitor Start: 08-15-19 End: 09-15-19 take 1 tablet by mouth once daily atorvastatin (LIPITOR) 40 mg tablet Take 1 tablet by mouth once daily. 30 tablet 5 09/14/2024 Active benzonatate 100 mg oral capsule (20 sources) Non-narcotic Antitussive Start: 11-15-19 take 1 capsule by mouth three times daily as needed benzonatate (TESSALON PERLE) 100 mg capsule Indications: Acute cough Take 1 capsule by mouth three times a day as needed. 30 capsule 11/14/2024 Active Start: 04-26-2024 End: 08-19-2024 take 2 capsules by mouth three times daily as needed benzonatate (TESSALON PERLE) 100 mg capsule Indications: Acute cough Take 2 capsules by mouth three times a day as needed. 30 capsule 04/26/2024 08/19/2024 Discontinued (Other) Start: 04-15-2024 End: 04-25-2024 take 1 capsule [...] on above: Take 2 capsules by m out three times daily as needed. cephalexin 500 [...] on above: Take 1 capsule by mo uth four times daily for 7 days. Take 1 capsule by mo uth twice daily for 7 days. cholecalciferol 0.125 mg oral capsule (20 sources) Vitamin D Start: 09-08-19 take 1 capsule by mouth once daily Cholecalciferol (Vitamin D3) 5,000 UNIT capsule Active 5000 U PO DAILY September 07, 2016 12:00am [facility] End: 07-16-2023 take 1 tablet by mouth [...] tablet 07/25/2020 06/27/2022 Discontinued Start: 09-11-2016 take 1 tablet by abdulaziz th three times daily as needed for pain Cyclobenzaprine 10 MG tablet Active 10 mg PO 3 TIMES DAILY NEEDED as needed for Back pain/muscle spasms 10 September 11, 2016 12:00am Comment on above: Take 1 tablet by abdulaziz th twice daily as needed for Muscle Spasm. docusate sodium 100 mg oral capsule (1 source) Start: 3 End: take 1 capsule by mouth twice daily docusate sodium (COLACE) 100 mg capsule Take 1 capsule by mouth twice daily for 14 days. 28 capsule 0 07/18/2022 08/01/2022 Active Comment on above: Take 1 capsule by mo [facility] twice daily for 14 days. donepezil hydrochloride 10 mg oral tablet (20 sources) Start: take 1 tablet by mouth once daily at bedtime donepezil (ARICEPT) 10 mg tablet Indications: Dementia without behavioral disturbance (HCC) Take 1 tablet by mouth daily at bedtime. Patient should start on February 10, 2025. 90 tablet 1 02/10/2025 Active Start: 02-10-2025 take 1 tablet by abdulaziz th once daily at bedtime donepezil (ARICEPT) 10 mg tablet Indications: Dementia without behavioral disturbance (HCC) Take 1 tablet by mouth daily at bedtime. Patient should start on February 10, 2025. 90 tablet 1 02/10/2025 Active Start: 02-10-2025 take 1 tablet by abdulaziz th once daily at bedtime donepezil (ARICEPT) 10 mg tablet Indications: Dementia without behavioral disturbance (HCC) Take 1 tablet by mouth daily at bedtime. Patient should start on February 10, 2025. 90 tablet 1 02/10/2025 Active Start: 09-18-2023 End: 11-11-2024 take 1 tablet by mouth once daily at bedtime donepezil (ARICEPT) 10 mg tablet Indications: Dementia without behavioral disturbance (HCC) Take 1 tablet by mouth daily at bedtime. 90 tablet 1 11/06/2024 11/11/2024 Discontinued Start: 04-17-2023 End: 09-18-2023 take 1 tablet by mouth once daily at bedtime donepezil (ARICEPT) 5 mg tablet Take 1 tablet by mouth daily at bedtime. 30 tablet 11 04/17/2023 09/18/2023 Discontinued Comment on above: Take 1 tablet by abdulaziz th daily at bedtime. fluocinolone-skin [id number] 0.01 % kit (12 sources) Start: 12-05-2023 End: 03-04-2024 fluocinolone-skin -novf 0.01 % kit Indications: Psoriasis Apply to affected area two times a day. 1 Kit 1 12/05/2023 03/04/2024 Active fluorometholone 1 mg/ml ophthalmic suspension (20 sources) Corticosteroid Start: 08-13-2024 Fluorometholone 0.1 % drops,suspension Active 1 NMA OPHTHALMIC EVERY OTHER DAY August 13, 2024 12:00am Start: 03-30-2020 fluorometholon e (FML LIQUID FILM) 0.1 % ophthalmic suspension Use 1 Drop in both eyes once daily. 03/30/2020 Active Comment on above: Use 1 Drop in both e yes once daily. FLUoxetine 10 mg oral capsule (20 sources) Serotonin Reuptake Inhibitor Start: 10-28-2023 End: 03-13-2025 take 1 capsule by mouth once daily FLUoxetine (PROZAC) 10 mg capsule Indications: JOSUHA (generalized anxiety disorder) Take 1 capsule by mouth once daily. 30 capsule 5 09/14/2024 03/13/2025 Active Start: 06-27-2022 End: 10-22-2023 take 1 capsule by mouth once daily FLUoxetine (PROZAC) 10 mg capsule Indications: JOSHUA (generalized anxiety disorder) Take 1 capsule by mouth once daily. 30 capsule 5 04/17/2023 09/18/2023 Discontinued Comment on above: Take 1 capsule by mo ut once daily. TAKE 1 CAPSULE BY [facility] ONCE DAILY folic acid 1 mg oral tablet (20 sources) Start: 09-07-2016 take 2 tablets by mouth once daily Folic Acid 1 MG tablet Active 2 mg PO DAILY September 07, 2016 12:00am SUPPLEMENT Start: 09-07-2016 take 2 mg by mouth once daily Folic Acid Active 2 MG PO DAILY September 07, 2016 12:00am FOLIC ACID ORAL Take by mouth. Active FOLIC ACID ORAL Take by mouth. 0 Active Comment on above: Take by mouth. glutamine 500 mg oral capsule (20 sources) Amino Acid Start: 007 End: 024 take 1 capsule by mouth once daily Glutamine (L-Glutamine) 500 MG capsule Active 500 mg PO DAILY September 07, 2016 12:00am SUPPLEMENT Comment on above: Take one(1) tablet d aily. hydrocortisone acetate 25 mg rectal suppository (20 sources) Corticosteroid Start: 025 take 25 mg rectal route every twelve hours as needed hydrocortisone (ANUSOL-HC) 25 mg suppository 1 suppository by RECTAL route two times a day as needed (hemorrhoids/rectal pain). 12 each 3 10/07/2024 Active Start: 01-31-2021 End: 04-29-2024 take 25 mg rectal route every twelve [...] be provided with radiology test) (1 source) Star t: 01-02 End: 01-02 iv contrast (will be provided with radiology [...] mg/ml topical cream (20 sources) Azole Antifungal Star t: 01-03 0 ketoconazole (NIZORAL) 2 % cream Indications: Fungal nail infection Apply to affected area two times a day. 30 g 1 01/22/2024 Active losartan potassium 25 mg oral tablet (20 sources) Angiotensin 2 Receptor Gonzales Star t: 05-21 End: 04-0 2-20 25 take 1 tablet by mouth once daily losartan (COZAAR) 25 mg tablet Indications: Hypertension, essential Take 1 tablet by mouth once daily. 90 tablet 1 06/03/2024 Active Comment on above: Take 1 tablet by abdulaziz th once daily. TAKE 1 TABLET BY ABDULAZIZ TH EVERY DAY lutein 20 mg oral capsule (12 sources) Star t: 07-0 09-20 17 take 1 capsule by mouth once daily Lutein 20 MG capsule Active 20 mg PO DAILY September 07, 2016 12:00am SUPPLEMENT methylPREDNISolone (3 sources) Corticosteroid Star t: 11-03 End: 11-03 methylPREDNISolone (MEDROL, ASTRID,) 4 mg Dose-Pack Indications: Pain in lateral portion of right ankle Follow dosing instructions, take with food. 21 tablet 11/25/2023 12/01/2023 Active nitrofurantoin, macrocrystals 25 mg / nitrofurantoin, monohydrate 75 mg oral capsule (3 sources) Nitrofuran Antibacterial Star t: 04-23 End: 0 11-21 24 take 1 capsule by mouth twice daily at mealtime nitrofurantoin monohydrate and macrocrystal (MACROBID) 100 mg capsule Take 1 capsule by mouth two times a day with meals for 3 days. 6 capsule 0 07/08/2023 07/11/2023 Active Hardtner-3 Fatty Acids-Fish Oil (8 sources) Star t: 07-0 09-20 17 take 5000 mg by mouth once daily Hardtner-3 Fatty Acids-Fish Oil Active 5000 MG PO DAILY September 07, 2016 11:33am Start: 09-07-2016 take 5000 mg by mout h once daily Hardtner-3 Fatty Acids-Fish Oil Active 5000 MG PO DAILY September 06, 2016 11:00pm Start: 09-07-2016 take 5000 mg by mout h once daily Hardtner-3 Fatty Acids-Fish Oil Active 5000 MG PO [...] 20 mg oral tablet (20 sources) Start: 11-14-2024 End: 11-18-2024 take 2 tablets by mouth once daily predniSONE (DELTASONE) 20 mg tablet Indications: Acute bronchitis, unspecified organism Take 2 tablets by mouth once daily for 4 days. 8 tablet 11/14/2024 11/18/2024 Active Start: 10-12-2022 End: 10-17-2022 take 2 tablets [...] then stop Take 1 tablet by abdulaziz th once daily for 4 days. Take daily with food. Take 2 tablets by mo [facility] once daily for 5 days. red yeast rice 600 mg oral capsule (20 sources) Start: 09-07-2016 take 1 capsule by mouth twice daily Red Yeast Rice 600 MG capsule Active 600 mg PO TWICE A DAY September 07, 2016 12:00am SUPPLEMENT Start: 05-05-2010 End: 07-16-2023 take 1 tablet [...] tablet 05/06/2024 05/16/2024 Active Turmeric-Turmeric Root Extract (12 sources) Start: 09-08-19 17 take 750 mg by mouth once daily Turmeric-Turmeric Root Extract Active 750 MG PO DAILY September 07, 2016 4:01pm Start: 09-07-2016 End: 08-13-2024 take 1 capsule by mouth once daily Turmeric-Turmeric Root Extract 500 MG capsule Discontinued 750 mg PO DAILY September 07, 2016 12:00am August 13, 2024 6:17pm SUPPLEMENT Start: 09-07-2016 End: 08-13-2024 take 1 capsule by mouth once daily Turmeric-Turmeric Root Extract 500 MG capsule Discontinued 750 mg PO DAILY September 07, 2016 12:00am August 13, 2024 6:17pm Start: 09-07-2016 take 750 mg by mouth once daily Turmeric-Turmeric Root Extract Active 750 MG PO DAILY September 06, 2016 11:00pm Start: 09-07-2016 take 750 mg by mouth once daily Turmeric-Turmeric Root Extract Active 750 MG PO DAILY September 07, 2016 12:00am ubidecarenone 100 mg oral ca psule (12 sources) Start: 09-07-2016 Coenzyme Q10 ( Co Q-10) 100 MG capsule Active 100 mg PO DAILY September 07, 2016 12:00am SUPPLEMENT Completed/Discontinued Medications Medication Drug Class(es) Dates Sig (Normalized) Sig (Original) [id number] 200 actuat albuterol 0.09 mg/actuat metered dose inhaler (20 sources) beta2-Adrenergic Agonist Start: 04-15-2024 End: 08-19-2024 take 2 puff(s) by inhalation every four hours as needed for wheezing albuterol HFA (PROVENTIL HFA, VENTOLIN HFA) 90 mcg/actuation inhaler Indications: Productive cough Inhale 2 Puffs as instructed every 4 hours as needed for wheezing/shortness of breath. 1 Each 1 04/15/2024 08/19/2024 Discontinued (Other) Start: 11-06-2019 End: 12-20-2020 take 2 puff(s) by inhalation every six hours as needed for cough albuterol HFA (PROVENTIL HFA, VENTOLIN HFA) 90 mcg/actuation inhaler Inhale 2 Puffs as instructed every 6 hours as needed (cough/wheeze.). 18 g 1 11/06/2019 12/20/2020 Discontinued amoxicillin 875 mg / clavulanate 125 mg [...] abdulaziz th twice daily for 5 days. azelaic acid 0.15 mg/mg topical gel (20 sources) Start: 01-06-2019 End: 08-19-2024 Azelaic Acid (FINACEA) 15 % gel Indications: Rosacea Apply to affected area once daily. 15 g 1 02/06/2023 08/19/2024 Discontinued (Other) Comment on above: Apply to affected ar ea once daily. bacitracin zinc 0.5 unt/mg topical ointment (3 [...] sources) Nonsteroidal Anti-inflammatory Drug Start: 023 End: 023 diclofenac (VOLTAREN ARTHRITIS PAIN) 1 % topical [...] joints you may be having pain in famotidine 10 mg oral tablet (20 sources) Histamine-2 Receptor Antagonist Start: 024 End: 025 take 1 tablet by mouth twice daily famotidine (PEPCID) 10 mg tablet Take 1 tablet by mouth two times a day. 30 tablet 5 08/02/2023 08/19/2024 Discontinued (Other) Start: 06-11-2022 End: 09-09-2022 take 1 tablet [...] on above: Take 1 tablet by abdulaziz twice daily. Take 10 mg by mouth twice daily. 2 ml ketorolac tromethamine 30 mg/ml injection (13 sources) Nonsteroidal Anti-inflammatory Drug, Cyclooxygenase Inhibitor Start: 05-08-2023 End: 05-08-2023 keTORolac 30 mg injection (Toradol) Start: 09-11-2016 End: 08-13-2024 take 1 tablet by mouth every six hours as needed for pain Ketorolac 10 MG tablet Discontinued 10 mg PO EVERY 6 HOURS as needed for Pain 10 0 September 11, 2016 11:48am August 13, 2024 8:32pm lecithin 400 mg oral capsule (20 sources) Start: 10-04-2006 End: 08-13-2024 take 1 capsule by mouth once daily Lecithin, Soy 400 MG capsule Discontinued 400 mg PO DAILY September 07, 2016 12:00am August 13, 2024 10:39pm SUPPLEMENT Comment on above: Take one(1) tablet d [...] sources) Angiotensin Converting Enzyme Inhibitor Start: End: take 1 tablet by mouth once daily lisinopril (ZESTRIL, PRINIVIL) 10 mg tablet Indications: Hypertension, essential Take 1 tablet by mouth once daily. 30 tablet 11 07/25/2020 06/27/2021 Discontinued Comment on above: Take 1 tablet by abdulaziz th once daily. Take 1 tablet by abdulaziz th once daily. Take an extra 1/2 tablet (5 mg) if BLOOD PRESSURE is 140/90 or greater loratadine 10 mg oral tablet (20 sources) Start: End: take 1 tablet by mouth once daily loratadine (CLARITIN) 10 mg tablet Indications: Bee sting, accidental or unintentional, initial encounter Take 1 tablet by mouth once daily. 30 tablet 11 01/10/2024 08/19/2024 Discontinued (Other) Start: 10-20-2021 End: 10-22-2023 take 1 tablet [...] 1 tablet by abdulaziz th once daily. meloxicam 15 mg oral tablet (20 sources) Nonsteroidal Anti-inflammatory Drug Start: End: take 1 tablet by mouth [...] on above: TAKE 1 TABLET BY ABDULAZIZ ONCE DAILY Take 1 tablet by abdulaziz once daily. methotrexate 2.5 mg oral tablet (20 sources) Folate Analog Metabolic Inhibitor Start: 10-06-2022 End: 06-27-2023 methotrexate 2.5 mg tablet 2.5 mg tablet, takes 7 tablets every Saturday. Hold Saturday.8 dose as took dose early on October 05, 2022. To resume weekly dosage on Sunday October 16, 2022. 10/06/2022 06/27/2023 Discontinued Start: 03-08-2021 End: 10-22-2023 methotrexate 2.5 mg tablet I ndications: Inflammatory arthritis Take 6 tablets once weekly,on 56 tablet 03/08/2021 05/16/2021 Discontinued Start: 12-04-2019 End: 03-02-2021 methotrexate 2.5 mg tablet I ndications: Inflammatory arthritis Take 6 tablets once weekly. 12/04/2019 03/02/2021 Discontinued Start: 09-07-2016 Methotrexate S odium 2.5 MG tablet Active 12.5 mg PO LORD September 07, 2016 12:00am ARHTRITIS Start: 09-07-2016 Methotrexate S odium Active 12.5 MG PO LORD September 07, 2016 12:00am Comment on above: Take 6 tablets once weekly,on 2.5 mg tablet, takes 7 tablets every Saturday. Hold Saturday.8 dose as took dose early on October 05, 2022. To resume weekly dosage on Sunday October 16, 2022. methylsulfonylmethane 1000 mg oral tablet (12 sources) Start: 2016 End: 2024 take 1 tablet by mouth twice daily Methylsulfonylmethane (Msm) 1,000 MG tablet Discontinued 1000 mg PO TWICE A DAY September 07, 2016 12:00am August 13, 2024 8:33pm ARTHRITIS MULTIVITAMIN ORAL (20 sources) End: 2023 MULTIVITAMIN ORAL Take by mouth once daily. Gummies 06/27/2023 Discontinued End: 06-27-2023 MULTIVITAMIN ORAL Take by mo [facility] once daily. Gummies 0 06/27/2023 Discontinued MULTIVITAMIN [...] Start: 05-21-2017 take 1 tablet by abdulaziz once daily multivitamin with minerals (VISION/OPTIGEN) tablet Take 1 tablet by mouth once daily. 0 05/21/2017 Active Comment on above: Take 1 tablet by abdulaziz th once daily. mupirocin 0.02 mg/mg topical ointment (7 sources) RNA Synthetase Inhibitor Antibacterial Start: 08-02-19 End: 09-21-19 mupirocin (BACTROBAN) 2 % ointment Indications: Nasal sore Apply to affected area three times daily. 15 g 0 08/01/2022 09/20/2022 Discontinued (Course of therapy completed) Comment on above: Apply to affected ar ea three times daily. nitrofurantoin, macrocrystals 100 mg oral capsule (12 sources) Nitrofuran Antibacterial Start: 09-08-19 End: 08-14-19 take 1 capsule by mouth twice daily Nitrofurantoin Macrocrystal 100 MG capsule Discontinued 100 mg PO TWICE A DAY September 07, 2016 12:00am August 13, 2024 8:33pm ANTIBIOTIC Hardtner-3 Fatty Acids-Fish Oil 1 EACH capsule (4 sources) Start: 09-08-19 End: 08-14-19 take 1 capsule by mouth once daily Hardtner-3 Fatty Acids-Fish Oil 1 EACH capsule Discontinued 5000 mg PO DAILY September 07, 2016 12:00am August 13, 2024 8:33pm SUPPLEMENT Start: 09-07-2016 End: 08-13-2024 take 1 capsule by mouth once daily Hardtner-3 Fatty Acids-Fish Oil 1 EACH capsule Discontinued 5000 mg PO DAILY September 07, 2016 12:00am August 13, 2024 8:33pm ctcvb-9l-sxi-epa-fish oil-D3 (VITAMIN-D + OMEGA-3) 350 mg- 1,000 unit cap (20 sources) gqvos-4p-syb-epa -fish oil-D3 (VITAMIN-D + OMEGA-3) 350 mg- 1,000 unit cap Take by mouth. Takes a total of 5,000 daily 0 Active Comment on above: Take by mouth. Takes a total of 5,000 daily gpkcr-6h-utv-epa-fish oil-D3 350 mg-400 mg- 1,000 unit cap (20 sources) End: httrt-5l-rab-epa-fish oil-D3 350 mg-400 mg- 1,000 unit cap Take by mouth. Takes a total of 5,000 daily 07/16/2023 Discontinued End: 07-16-2023 vbbks-2p-pip-epa-fish oil-D3 350 mg-400 mg- 1,000 unit cap Take by mouth. Takes a total of 5,000 daily 0 07/16/2023 Discontinued yhcrk-6c-tvl-epa -fish oil-D3 350 mg-400 mg- 1,000 unit cap Take by mouth. Takes a total of 5,000 daily 0 Active Comment on above: Take by mouth. Takes a total of 5,000 daily polyethylene glycol 3350 16000 mg powder for oral solution (1 source) Osmotic Laxative Start: 10-23-19 End: 12-21-19 polyethylene glycol 3350 (MIRALAX, GLYCOLAX) 17 gram/dose powder Take 17 g by mouth once daily. 238 g 3 10/23/2019 12/20/2020 Discontinued polyethylene glycol 3350 418301 mg / potassium chloride 2970 mg / sodium bicarbonate 6740 mg / sodium chloride 5860 mg / sodium sulfate 08011 mg powder for oral solution (1 source) [...] 06/27/2023 Discontinued take 1 capsule by mo uth once daily as needed polyethylene glycol 3350 [...] above: Take 1 tablet by abdulaziz th three times daily for 3 days. vitamin b6 25 mg oral tablet (12 sources) Start: 7 End: 5 Pyridoxine (Vitamin B6) (Vitamin B-6) 25 MG tablet Discontinued 50 mg PO DAILY September 07, 2016 12:00am August 13, 2024 8:33pm SUPPLEMENT Problems Active Problems Problem Classification Problem Date Documented Da te Episodic/Chronic Abdominal hernia (3 sources) Vaginal enterocele; Translations: [Unspecified abdominal hernia without obstruction or gangrene] Episodic Abdominal pain (20 sources) Left lower quadrant pain; Translations: [Left lower quadrant pain] Onset: 7 Resolved: 8 12-30-2017 Episodic Acute bronchitis (20 sources) Viral bronchitis; Translations: [Acute bronchitis due to other specified organisms] Onset: 2 Resolved: 2 10-12-2022 Episodic Adjustment disorders (20 sources) Adjustment disorder with anxious mood; Translations: [Adjustment disorder with anxiety] Onset: 4 05-12-2013 Chronic Anxiety disorders (20 sources) Generalized anxiety disorder; Translations: [Generalized anxiety disorder] Onset: 3 Chronic Chronic obstructive pulmonary disease and bronchiectasis (20 sources) Chronic obstructive lung disease; Translations: [Chronic obstructive pulmonary disease, unspecified] Onset: 9 10-08-2018 Chronic Chronic obstructive pulmonary disease and bronchiectasis (1 source) Bronchitis, not specified as acute or chronic; Translations: [Bronchitis] Onset: 5 Episodic Complication of device; implant or graft (2 sources) Pain due to knee joint prosthesis; Translations: [Pain due to internal orthopedic prosthetic devices, implants and grafts, initial encounter] 01-11-2023 Episodic Delirium, dementia, and amnestic and other cognitive disorders (20 sources) Dementia; Translations: [Unspecified dementia without behavioral disturbance] Onset: 4 04-17-2023 Chronic Diseases of mouth; excluding dental (20 sources) Lesion of lip; Translations: [Diseases of lips] Onset: 4 03-13-2023 Episodic Disorders of lipid metabolism (20 sources) Dyslipidemia; Translations: [Hyperlipidemia, unspecified] Onset: 6 05-24-2021 Chronic Disorders of teeth and jaw (1 source) Infection of tooth; Translations: [Periapical abscess without sinus] Episodic E Codes: Fall (1 source) Fall; Translations: [Unspecified fall, subsequent encounter] 01-21-2023 Episodic Esophageal disorders (20 sources) Gastroesophageal reflux [...] for removal of sutures] 01-28-2023 Episodic Other aftercare (1 source) Long-term current use of aspirin; Translations: [intermediate designer (current) use of aspirin] 08-19-2024 Episodic Other circulatory disease (1 source) Elevated blood-pressure reading without diagnosis of hypertension; Translations: [Elevated blood-pressure reading, without diagnosis of hypertension] 11-04-2024 Episodic Other circulatory disease (1 source) History of transient ischemic attack; Translations: [Personal history of transient ischemic attack (TIA), and cerebral infarction without residual deficits] 11-04-2024 Episodic Other connective tissue disease (20 sources) [...] Episodic Other connective tissue disease (1 source) Spasm; Translations: [Other muscle spasm] 11-11-2024 Episodic Other connective tissue disease (1 source) Other muscle spasm; Translations: [Muscle spasm] Onset: 5 Episodic Other diseases of bladder and urethra [...] (gaseous); Translations: [Bloating] Onset: 4 Episodic Other inflammatory condition of skin (20 [...] Erythema; Translations: [Erythematous condition, unspecified] Episodic Other inflammatory condition of skin (1 source) Erythema intertrigo; Translations: [Intertrigo] Onset: 5 Episodic Other injuries and conditions [...] breathing] 06-27-2023 Episodic Other lower respiratory disease (4 sources) Cough; 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] 04-10-2021 Episodic Other lower respiratory disease (1 source) Productive cough ; Translations: [Productive cough] 04-15-2024 Episodic Other nervous system disorders (1 source) Other chronic pain; Translations: [Chronic left-sided low back pain without sciatica] Onset: 5 Chronic Other nervous system disorders (3 sources) Paresthesia; Translations: [Paresthesia of skin] 08-19-2024 Episodic Other non-traumatic joint disorders (2 sources) Pain [...] screening for malignant neoplasm of colon] Onset: Episodic Other skin disorders (1 source) Disorder [...] Translations: [Acute upper respiratory infection, unspecified] Episodic Poisoning by nonmedicinal substances (6 sources) Bee sting; Translations: [Toxic effect of venom of bees, accidental (unintentional), initial encounter] Episodic Prolapse of female genital organs (20 sources) Disorder of rectum; Translations: [Rectocele] Onset: 1 11-01-2016 Chronic Residual codes; unclassified (1 source) Non-steroidal anti-inflammatory drugs contraindicated; Translations: [Procedure and treatment not carried out because of other contraindication] 11-04-2024 Episodic Residual codes; unclassified (1 source) Pain; Translations: [Pain, unspecified] 11-04-2024 Episodic Residual codes; unclassified (1 source) Pain, unspecified; Translations: [Pain] Onset: 5 Episodic Skin and subcutaneous tissue infections (1 source) Infection of skin; Translations: [Local infection of the skin and subcutaneous tissue, unspecified] 12-24-2023 Episodic Spondylosis; intervertebral disc disorders; other back problems (20 sources) Degeneration of cervical intervertebral disc; Translations: [Other cervical disc degeneration, unspecified cervical region] Onset: 6 05-30-2015 Chronic Superficial injury; contusion (6 sources) Insect bite of head; Translations: [Insect bite (nonvenomous) of other part of head, initial encounter] Onset: 5 08-08-2024 Episodic Transient cerebral ischemia (12 sources) Transient cerebral ischemia; Translations: [Transient cerebral ischemic attack, unspecified] Onset: 5 08-13-2024 Chronic Unclassified (1 source) Acute left-sided low back pain, unspecified whether sciatica present; Translations: [Acute left-sided low back pain, unspecified whether sciatica present] Onset: 5 Unclassified (1 source) Acute cough; Translations: [Acute cough] Onset: 5 Unclassified (1 source) PT Discharge Onset: 5 Unclassified (1 source) Acute left-sided [...] Classification Problem Date Documented Da te Episodic/Chronic Anal and rectal conditions (20 sources) Rectal prolapse; Translations: [Rectal prolapse] Onset: 08-01-2022 Episodic Deficiency and other anemia (1 source) Iron deficiency anemia, unspecified; Translations: [Iron deficiency anemia, unspecified iron deficiency anemia type] Onset: 12-16-2023 Episodic Diabetes mellitus without complication (20 sources) Impaired fasting glycemia; Translations: [Impaired fasting glucose] Onset: 05-24-2021 05-24-2021 Episodic Diverticulosis and diverticulitis (20 sources) Diverticulosis of colon; Translations: [Diverticulosis of large intestine without perforation or abscess without bleeding] Resolved: 05-30-2015 05-30-2015 Chronic E Codes: Natural/environment (4 sources) Repetitive motion disorder; Translations: [Overexertion from repetitive movements, initial encounter] Onset: 08-08-2024 Episodic Gastrointestinal hemorrhage (20 sources) Hemorrhage of rectum [...] Onset: 05-23-2016 Resolved: 09-19-2016 09-19-2016 Episodic Other aftercare (1 source) USP (current) use of aspirin; Translations: [intermediate designer (current) use of aspirin] Onset: 08-19-2024 Episodic Other bone disease and musculoskeletal deformities [...] 09-19-2016 09-19-2016 Episodic Other connective tissue disease (20 sources) Pes anserinus bursitis; Translations: [Other bursitis of knee, unspecified knee] Onset: 12-07-2020 12-07-2020 Episodic Other gastrointestinal disorders (20 sources) Prolapse of intestine; Translations: [Enteroptosis] Onset: 12-05-2021 Episodic Other gastrointestinal disorders (20 sources) Constipation; Translations: [Constipation, unspecified] Resolved: 02-01-2012 02-01-2012 Episodic Other gastrointestinal disorders (20 sources) Feces contents abnormal; Translations: [Other fecal abnormalities] Onset: 06-10-2024 06-10-2024 Episodic Other lower respiratory disease (20 sources) [...] [Other speech disturbances] Onset: 08-01-2022 Episodic Other nervous system disorders (2 sources) Paresthesia of skin; Translations: [Paresthesia] Onset: 06-26-2025 Episodic Other non-traumatic joint disorders (20 sources) Pain in left knee; Translations: [Pain in joint, lower leg] Onset: 05-20-2017 Resolved: 07-04-2017 05-02-2020 Episodic Other skin disorders (20 sources) Sebaceous cyst of skin; Translations: [Sebaceous cyst] Onset: 10-08-2018 10-08-2018 Episodic Other upper respiratory disease (20 sources) Lesion of nose; Translations: [Other specified disorders of nose and nasal sinuses] Onset: 08-01-2022 Episodic Pancreatic disorders (not diabetes) (20 sources) Cyst of pancreas; Translations: [Cyst of pancreas] Onset: 07-11-2020 07-11-2020 Episodic Residual codes; unclassified (20 sources) Poor short-term memory ; Translations: [Other amnesia] Onset: 08-01-2022 Episodic Spondylosis; intervertebral disc disorders; other back problems (20 sources) Cervical radiculopathy; Translations: [Radiculopathy, cervical region] Onset: 02-08-2005 03-21-2020 Episodic Sprains and strains (4 sources) Strain of muscle of chest wall; Translations: [Strain of muscle and tendon of front wall of thorax, initial encounter] Onset: 06-30-2024 Episodic Unclassified (1 source) Sprain of right ankle 06-30-2024 Urinary tract infections (20 sources) Urinary tract infectious disease; Translations: [Urinary tract infection, site not specified] Onset: 11-01-2016 Resolved: 05-20-2017 Episodic Results Test Name Value Interpretation Reference Range Facility [facility] 12-17-2024 [facility] [address] [place] [address] [id number] Liver MR#: [id number] Acct: [id number] Name: ANAYA DE LA O Rep #: [id number] : 1940 F 84 From: Varun al MD PCP: Dr. Edenilson Nicholson DO Status: REG CLI Study: Liver Date of Exam: 12/17/24 Exam# [id number] Ordering Dr: Dina Olea MD PROCEDURE: LIVER 12/17/2024 REASON FOR EXAM: ELEVATED LIVER ENZYMES TECHNIQUE: Procedure Code: USLI Modality: US Procedure: LIVER COMPARISON: None FINDINGS: Liver: Fatty infiltration of the liver. The liver is nonenlarged. Gallbladder: No stones, sludge, wall thickening or tenderness. Common bile duct: Normal measuring 5.7 mm Pancreas: There is a 1.9 cm 1.3 cm 1.5 cm septated cyst in the body of the pancreas.. Other: Visualized portions of the right kidney are unremarkable. No right upper quadrant ascites. US/Liver IMPRESSION: Fatty infiltration of the liver. 1.9 cm 1.3 cm 1.5 cm septated cyst in the body of the pancreas. Correlation with CT scan recommended if clinically indicated. Reading Location: [place] [address] CC: Dr. Edenilson Nicholson DO; Dr. Dina Olea MD Medical Staff Manager: Signed Normal [facility] CBC W/Diff, Automatedon 10-0 Absolute Lymph 2.32 X10 3/uL Normal 0.83-4.51 [facility] Comment on above: Performed By: #### L 100.0100, L500.4050 #### [facility] [address] [place], [address] Absolute Neut 6.2 X10 3/uL Normal 2.0-7.7 [facility] Comment on above: Performed By: #### L 100.0100, L500.4050 #### [facility] [address] [place], [address] Basophils/100 WBC (Bld) 0.4 % Normal 0-1 [facility] Comment on above: Performed By: #### L 100.0100, [id number] #### [facility] [address] [place], [address] Eosinophils/100 WBC (Bld) 0.8 % Normal 0-5 [facility] Comment on above: Performed By: #### L 100.0100, L500.4050 #### [facility] [address] [place], [address] Erythrocyte distribution width (RBC) [Ratio] 15.0 % High 11.6-14.6 [facility] Comment on above: Performed By: #### L 100.0100, [id number] #### [facility] [address] [place], [address] Hematocrit (Bld) [Volume fraction] 36.5 % Low 37-47 [facility] Comment on above: Performed By: #### L 100.0100, [id number] #### [facility] [address] [place], [address] Hemoglobin (Bld) [Mass/Vol] 11.9 g/dL Low 12.0-15.0 [facility] Comment on above: Performed By: #### L 100.0100, [id number] #### [facility] [address] [place], [address] IG% 1.700 High 0.0-0.9 [facility] Comment on above: Result Comment: IG% - Immature Granulocytes (promyelocytes, myelocytes and metamyelocytes) > 1% indicates that a LEFT SHIFT is Present. Performed By: #### L 100.0100, L500.4050 #### [facility] [address] [place], [address] Lymphocytes/100 WBC (Bld) 23.5 % Normal 19-41 [facility] Comment on above: Performed By: #### L 100.0100, [id number] #### [facility] [address] [place], [address] MCH (RBC) [Entitic mass] 31.0 pg Normal 27.0-32.0 [facility] Comment on above: Performed By: #### L 100.0100, [id number] #### [facility] [address] [place], [address] MCHC (RBC) [Mass/Vol] 32.6 g/dL Normal 32-36 [facility] Comment on above: Performed By: #### L 100.0100, [id number] #### [facility] [address] [place], [address] MCV (RBC) [Entitic vol] 95.1 fL Normal 81-99 [facility] Comment on above: Performed By: #### L 100.0100, [id number] #### [facility] [address] [place], [address] Monocytes/100 WBC (Bld) 10.7 % High 0-10 [facility] Comment on above: Performed By: #### L 100.0100, [id number] #### [facility] [address] [place], [address] Neutrophils/100 WBC (Bld) 62.9 % Normal 47-70 [facility] Comment on above: Performed By: #### L 100.0100, [id number] #### [facility] [address] [place], [address] Nucleated RBC (Bld) [#/Vol] 0 10*3/uL Normal 0-5 [facility] Comment on above: Performed By: #### L 100.0100, [id number] #### [facility] [address] [place], [address] Platelet mean volume (Bld) [Entitic vol] 11.2 fL Normal 6.2-12.0 [facility] Comment on above: Performed By: #### L 100.0100, [id number] #### [facility] [address] [place], [address] Platelets (Bld) [#/Vol] 204 10*3/uL Normal 150-450 [facility] Comment on above: Performed By: #### L 100.0100, [id number] #### [facility] [address] [place], [address] RBC (Bld) [#/Vol] 3.84 10*6/uL Low 4.2-5.4 [facility] Comment on above: Performed By: #### L 100.0100, [id number] #### [facility] [address] [place], [address] RDW SD 50.9 fl High 35.1-43.9 [facility] Comment on above: Performed By: #### L 100.0100, [id number] #### [facility] [address] [place], [address] WBC (Bld) [#/Vol] 9.9 10*3/uL Normal 4.4-11.0 [facility] Comment on above: Performed By: #### L 100.0100, [id number] #### [facility] [address] [place], [address] Comprehensive Metabolic Prof [facility] 12-07-2024 Albumin [Mass/Vol] 3.7 g/dL Normal 3.4-4.8 [facility] Comment on above: Performed By: #### L 100.0100, [id number] #### [facility] [address] [place], [address] Albumin/Globulin [Mass ratio] 1.8 {ratio} Normal 0.9-2.4 [facility] Comment on above: Performed By: #### L 100.0100, [id number] #### [facility] [address] [place], [address] ALK PHOS 115 U/L High 35-104 [facility] Comment on above: Performed By: #### L 100.0100, [id number] #### [facility] [address] [place], [address] ALT [Catalytic activity/Vol] 69 U/L High <=34 [facility] Comment on above: Performed By: #### L 100.0100, [id number] #### [facility] [address] [place], [address] AST [Catalytic activity/Vol] 46 U/L High <=31 [facility] Comment on above: Performed By: #### L 100.0100, [id number] #### [facility] [address] [place], [address] Bilirubin [Mass/Vol] 0.40 mg/dL Normal 0.00-1.30 [facility] Comment on above: Performed By: #### L 100.0100, [id number] #### [facility] [address] [place], [address] BUN/CRE 19.6 RATIO Normal 10-20 [facility] Comment on above: Performed By: #### L 100.0100, L500.4050 #### [facility] [address] [place], [address] Calcium [Mass/Vol] 9.2 mg/dL Normal 7.6-11.0 [facility] Comment on above: Performed By: #### L 100.0100, L500.4050 #### [facility] [address] [place], [address] Chloride [Moles/Vol] 102 mmol/L Normal 98-108 [facility] Comment on above: Performed By: #### L 100.0100, L500.4050 #### [facility] [address] [place], [address] CO2 [Moles/Vol] 28.3 mmol/L Normal 21.0-32.0 [facility] Comment on above: Performed By: #### L 100.0100, L500.4050 #### [facility] [address] [place], [address] Creatinine [Mass/Vol] 0.70 mg/dL Normal 0.70-1.20 [facility] Comment on above: Performed By: #### L 100.0100, L500.4050 #### [facility] [address] [place], [address] GAP 10 Normal 5-15 [facility] Comment on above: Performed By: #### L 100.0100, L500.4050 #### [facility] [address] [place], [address] GFR/1.73 sq M.predicted among non-blacks MDRD (S/P/Bld) [Vol rate/Area] 85 mL/min/{1.73_m2} Normal >60 [facility] Comment on above: Result Comment: mL/m in/1.73m2 CKD-EPI Creatinine Equation (2020) Performed By: #### L 100.0100, L500.4050 #### [facility] [address] [place], [address] Globulin (S) [Mass/Vol] 2.1 g/dL Low 2.2-4.2 [facility] Comment on above: Performed By: #### L 100.0100, L500.4050 #### [facility] [address] [place], [address] Glucose [Mass/Vol] 85 mg/dL Normal 70-99 [facility] Comment on above: Performed By: #### L 100.0100, L500.4050 #### [facility] [address] [place], [address] Potassium [Moles/Vol] 4.4 mmol/L Normal 3.3-5.1 [facility] Comment on above: Performed By: #### L 100.0100, L500.4050 #### [facility] [address] [place], [address] Sodium [Moles/Vol] 140 mmol/L Normal 133-145 [facility] Comment on above: Performed By: #### L 100.0100, L500.4050 #### [facility] [address] [place], [address] T PROT 5.8 g/dL Low 5.9-8.4 [facility] Comment on above: Performed By: #### L 100.0100, L500.4050 #### [facility] [address] [place], [address] Urea nitrogen [Mass/Vol] 14 mg/dL Normal 4-19 [facility] Comment on above: Performed By: #### L 100.0100, L500.4050 #### [facility] [address] [place], [address] XR Chest PA and Lateralon IMPRESSION: No acute radiographic abnormality. Medical Staff Manager: PSCB Transcribe Date/Time: Nov 14 2024 11:52A Dictated by : MARGARET ALANIZ MD This examination was interpreted and the report reviewed and electronically signed by: MARGARET ALANIZ MD on Nov 14 2024 11:55AM [facility] DIVISION OF RADIOLOGY * * *Final Report* * * DATE OF EXAM: Nov 14 2024 11:38AM WOX 5291 - XR CHEST 2V FRONTAL/LAT / PROCEDURE REASON: Acute cough * * * * Physician Interpretation * * * * EXAMINATION: CHEST RADIOGRAPH (2 VIEW FRONTAL & LATERAL) CLINICAL HISTORY: Acute cough MQ: XC2_6 EXAM DATE/TIME: 11/14/2024 11:38 AM COMPARISON: Chest x-ray 04/27/2024 RESULT: Lines, tubes, and devices: None. Lungs and pleura: No consolidation. No lung mass. No pleural effusion. No pneumothorax. Cardiomediastinal silhouette: Normal cardiomediastinal silhouette. Bones and soft tissues: Unremarkable. DIVISION OF RADIOLOGY Provider, [facility] - 11/14/2024 * * *Final Report* * * DATE OF EXAM: Nov 14 2024 11:38AM WOX 5291 - XR CHEST 2V FRONTAL/LAT / PROCEDURE REASON: Acute cough * * * * Physician Interpretation * * * * EXAMINATION: CHEST RADIOGRAPH (2 VIEW FRONTAL & LATERAL) CLINICAL HISTORY: Acute cough MQ: XC2_6 EXAM DATE/TIME: 11/14/2024 11:38 AM COMPARISON: Chest x-ray 04/27/2024 RESULT: Lines, tubes, and devices: None. Lungs and pleura: No consolidation. No lung mass. No pleural effusion. No pneumothorax. Cardiomediastinal silhouette: Normal cardiomediastinal silhouette. Bones and soft tissues: Unremarkable. IMPRESSION IMPRESSION: No acute radiographic abnormality. Medical Staff Manager: PSCB Transcribe Date/Time: Nov 14 2024 11:52A Dictated by : MARGARET ALANIZ MD This examination was interpreted and the report reviewed and electronically signed by: MARGARET ALANIZ MD on Nov 14 2024 11:55AM EST [facility] Radiology Study observation (narrative) [facility] XR Chest PA and LateralOrder ed By: [facility] Provider on 11-14-2024 [facility] Absolute lymphocyte countOrd ered By: Kai Macedo on 11-04-2024 Lymphocytes Auto (Unsp spec) [#/Vol] 1.46 10*3/uL 0.83-4.51 [facility] Absolute neutrophil countOrd ered By: Kai Macedo on 11-04-2024 Neutrophils (Bld) [#/Vol] 5.3 10*3/uL 2.0-7.7 [facility] Anion gap in Serum or Plasma Ordered By: Kai Macedo on 11-04-2024 Anion gap [Moles/Vol] 11 mmol/L 5-15 [facility] Automated lymphocyte count a s percentage of total leukocytesOrdered By: Kai Macedo on 11-04-2024 Lymphocytes/100 WBC Auto (Unsp spec) 18.6 % Low 19-41 [facility] BUN/creatinine ratioOrdered By: Kai Macedo on 11-04-2024 Urea nitrogen/Creatinine [Mass ratio] 9.8 mg/mg Low 10-20 [facility] Basic Metabolic Profile (BMP )on 11-04-2024 BUN/CRE 9.8 RATIO Low 10-20 [facility] Comment on above: Performed By: #### L 100.0100, L500.4050 #### [facility] [address] [place], [address] Calcium [Mass/Vol] 8.9 mg/dL Normal 7.6-11.0 [facility] Comment on above: Performed By: #### L 100.0100, L500.4050 #### [facility] [address] [place], [address] Chloride [Moles/Vol] 101 mmol/L Normal 98-108 [facility] Comment on above: Performed By: #### L 100.0100, L500.4050 #### [facility] [address] [place], [address] CO2 [Moles/Vol] 23.5 mmol/L Normal 21.0-32.0 [facility] Comment on above: Performed By: #### L 100.0100, L500.4050 #### [facility] [address] [place], [address] Creatinine [Mass/Vol] 0.62 mg/dL Low 0.70-1.20 [facility] Comment on above: Performed By: #### L 100.0100, L500.4050 #### [facility] [address] [place], [address] ECRCL 37.60 ml/min Low 50-250 [facility] Comment on above: Performed By: #### L 100.0100, L500.4050 #### [facility] [address] [place], [address] GAP 11 Normal 5-15 [facility] Comment on above: Performed By: #### L 100.0100, L500.4050 #### [facility] [address] [place], [address] GFR/1.73 sq M.predicted among non-blacks MDRD (S/P/Bld) [Vol rate/Area] 88 mL/min/{1.73_m2} Normal >60 [facility] Comment on above: Result Comment: mL/m in/1.73m2 CKD-EPI Creatinine Equation (2020) Performed By: #### L 100.0100, L500.4050 #### [facility] [address] [place], [address] Glucose [Mass/Vol] 127 mg/dL High 70-99 [facility] Comment on above: Performed By: #### L 100.0100, L500.4050 #### [facility] [address] [place], [address] Potassium [Moles/Vol] 3.9 mmol/L Normal 3.3-5.1 [facility] Comment on above: Performed By: #### L 100.0100, L500.4050 #### [facility] [address] [place], [address] Sodium [Moles/Vol] 136 mmol/L Normal 133-145 [facility] Comment on above: Performed By: #### L 100.0100, L500.4050 #### [facility] [address] [place], [address] Urea nitrogen [Mass/Vol] 6 mg/dL Normal 4-19 [facility] Comment on above: Performed By: #### L 100.0100, L500.4050 #### [facility] [address] [place], [address] Basophil percentageOrdered B y: Kai Macedo on 11-04-2024 Basophils/100 WBC (Bld) 0.4 % 0-1 [facility] Bilirubin Test strip Ql (U)O rdered By: Kai Macedo on 11-04-2024 Bilirubin Ql (U) Negative Negative [facility] CBC W/Diff, Automatedon 0 3-2024 Absolute Lymph 1.46 X10 3/uL Normal 0.83-4.51 [facility] Comment on above: Performed By: #### L 100.0100, L500.2500 #### [facility] [address] [place], [address] Absolute Neut 5.3 X10 3/uL Normal 2.0-7.7 [facility] Comment on above: Performed By: #### L 100.0100, L500.2500 #### [facility] [address] [place], [address] Basophils/100 WBC (Bld) 0.4 % Normal 0-1 [facility] Comment on above: Performed By: #### L 100.0100, L500.2500 #### [facility] [address] [place], [address] Eosinophils/100 WBC (Bld) 1.5 % Normal 0-5 [facility] Comment on above: Performed By: #### L 100.0100, L500.2500 #### [facility] [address] [place], [address] Erythrocyte distribution width (RBC) [Ratio] 14.6 % Normal 11.6-14.6 [facility] Comment on above: Performed By: #### L 100.0100, L500.2500 #### [facility] [address] [place], [address] Hematocrit (Bld) [Volume fraction] 37.7 % Normal 37-47 [facility] Comment on above: Performed By: #### L 100.0100, L500.2500 #### [facility] [address] [place], [address] Hemoglobin (Bld) [Mass/Vol] 12.4 g/dL Normal 12.0-15.0 [facility] Comment on above: Performed By: #### L 100.0100, L500.2500 #### [facility] [address] [place], [address] IG% 0.400 Normal 0.0-0.9 [facility] Comment on above: Result Comment: IG% - Immature Granulocytes (promyelocytes, myelocytes and metamyelocytes) > 1% indicates that a LEFT SHIFT is Present. Performed By: #### L 100.0100, L500.2500 #### [facility] [address] [place], [address] Lymphocytes/100 WBC (Bld) 18.6 % Low 19-41 [facility] Comment on above: Performed By: #### L 100.0100, L500.2500 #### [facility] [address] [place], [address] MCH (RBC) [Entitic mass] 30.5 pg Normal 27.0-32.0 [facility] Comment on above: Performed By: #### L 100.0100, L500.2500 #### [facility] [address] [place], [address] MCHC (RBC) [Mass/Vol] 32.9 g/dL Normal 32-36 [facility] Comment on above: Performed By: #### L 100.0100, L500.2500 #### [facility] [address] [place], [address] MCV (RBC) [Entitic vol] 92.9 fL Normal 81-99 [facility] Comment on above: Performed By: #### L 100.0100, L500.2500 #### [facility] [address] [place], [address] Monocytes/100 WBC (Bld) 11.9 % High 0-10 [facility] Comment on above: Performed By: #### L 100.0100, L500.2500 #### [facility] [address] [place], [address] Neutrophils/100 WBC (Bld) 67.2 % Normal 47-70 [facility] Comment on above: Performed By: #### L 100.0100, L500.2500 #### [facility] [address] [place], [address] Nucleated RBC (Bld) [#/Vol] 0 10*3/uL Normal 0-5 [facility] Comment on above: Performed By: #### L 100.0100, L500.2500 #### [facility] [address] [place], [address] Platelet mean volume (Bld) [Entitic vol] 10.1 fL Normal 6.2-12.0 [facility] Comment on above: Performed By: #### L 100.0100, L500.2500 #### [facility] [address] [place], [address] Platelets (Bld) [#/Vol] 193 10*3/uL Normal 150-450 [facility] Comment on above: Performed By: #### L 100.0100, L500.2500 #### [facility] [address] [place], [address] RBC (Bld) [#/Vol] 4.06 10*6/uL Low 4.2-5.4 [facility] Comment on above: Performed By: #### L 100.0100, L500.2500 #### [facility] [address] [place], [address] RDW SD 49.1 fl High 35.1-43.9 [facility] Comment on above: Performed By: #### L 100.0100, L500.2500 #### [facility] [address] [place], [address] WBC (Bld) [#/Vol] 7.9 10*3/uL Normal 4.4-11.0 [facility] Comment on above: Performed By: #### L 100.0100, L500.2500 #### [facility] [address] [place], [address] Carbon dioxide, total [Moles /volume] in Central venous bloodOrdered By: Kai Macedo on 11-04-2024 CO2 [Moles/Vol] 23.5 mmol/L 21.0-32.0 [facility] Chloride assayOrdered By: Jaspal Macedo on 11-04-2024 Chloride [Moles/Vol] 101 mmol/L 98-108 [facility] Emergency Department Summary on 11-04-2024 Emergency Department Summary [facility] Medical Records Department [address] [place] [address] Emergency Department Summary 11/04/24 MR#: [id number] Acct: [id number] Name: ANAYA DE LA O Rep #: [id number] : 1940 84 From: Kai Macedo MD PCP: Dr. Edenilson Nicholson, Status:REG ER Location: ED HPI History of Present Illness Chief Complaint: Flank Pain Detail of Chief Complaint: Abrupt onset of left flank/left low back pain Informant: patient Onset/Context/Timing Onset: Today Context: Sudden Onset Timing: Continuous and Waxes and wanes Quality: Pain Location: Left flank/paralumbar region Current Severity: Mild Maximum Severity: Severe Worsened by: Nothing per patient Relieved by: Nothing Associated Symptoms Associated Symptoms: Frequency Narrative Narrative: Patient is an 84-year-old woman. She presents with left flank/left paralumbar pain that started abruptly. There is a positional component. There is also pain that causes her significant discomfort when she is just lying still. She denies radiation of the pain anteriorly. She does report increased frequency from her baseline. She denies dysuria or hematuria. She has no history of renal or ureterolithiasis. She had a colonoscopy yesterday. The pain is not abdominal. She is not having diarrhea. She has not done any lifting, pushing or pulling the last 2 days. She reports nausea or vomiting with most analgesic meds. There is also unknown to hydrocodone. Prior similar symptoms: No Recent Illness/Hospitalization: Yes (Colonoscopy yesterday at [facility]) [facility] Medical History DDD (degenerative disc disease) Psoriatic arthritis Home Medications ???Medication ???Instructions ???Recorded ???Last Taken ???Type ascorbic acid (vitamin C) 500 mg 500 mg PO DAILY@0800 SUPPLEMENT 08/12/24 History tablet (Vitamin C) cholecalciferol (vitamin D3) 125 5,000 unit PO DAILY [facility] 09/06/16 History mcg (5,000 unit) capsule coenzyme Q10 100 mg capsule (Co 100 mg PO DAILY SUPPLEMENT 7 08/12/24 History Q-10) folic acid 1 mg tablet 2 mg PO DAILY SUPPLEMENT 09/07/16 08/12/24 History glutamine 500 mg capsule 500 mg PO DAILY SUPPLEMENT 7 Unknown History (L-Glutamine) lutein 20 mg capsule 20 mg PO DAILY SUPPLEMENT 09/07/16 08/12/24 History methotrexate sodium 2.5 mg tablet 12.5 mg PO LORD ARHTRITIS 09/07/16 08/08/24 History red yeast rice 600 mg capsule 600 mg PO BID SUPPLEMENT 09/07/16 08/12/24 History cyclobenzaprine 10 mg tablet 10 mg PO TID PRN PRN Back 09/11/16 Unknown Rx pain/muscle spasms #10 tabs amitriptyline 10 mg tablet 10 mg PO QHS mood 08/13/24 Unknown History donepezil 10 mg tablet 10 mg PO QHS memory 08/13/24 Unkno wn History fluorometholone 0.1 % eye 1 drp ophthalmic (eye) QODAY 08/13 Unknown History drops,suspension fluoxetine 10 mg capsule 10 mg PO DAILY depression 08/13/24 Unknown History losartan 25 mg tablet 25 mg PO DAILY blood pressure 08/02 04/28 Unknown History aspirin 81 mg tablet 81 mg PO DAILY #30 tabs 08/14/24 U nknown Rx atorvastatin 40 mg tablet 40 mg PO QHS #30 tabs 08/14/24 Unk nown Rx hydrocodone-acetaminophen 5-325mg 1 tab PO Q6H PRN PRN Pain 3 days 11/04/24 Unknown Rx 5mg-325mg #10 TABLETS Allergy/AdvReac Type Severity Reaction Status Date / Time Penicillins Allergy Unknown Verified 11/04/24 16:20 meperidine HCl (From Demerol) AdvReac Intermediate Vomiting Verified 11/04/24 16:20 sertraline HCl (From Zoloft) AdvReac Intermediate Other Verified 11/04/24 16:20 acetaminophen (From AdvReac Mild Vomiting Verified 11/04/24 16:20 Darvocet-N 100) caffeine AdvReac Mild Other Verified 11/04/24 16:20 codeine AdvReac Mild Vomiting Verified 11/04/24 16:20 ephedrine AdvReac Mild Other Verified 11/04/24 16:20 propoxyphene napsylate (From AdvReac Mild Vomiting Verified 11/04/24 16:20 Darvocet-N 100) tramadol AdvReac Mild Vomiting Verified 11/04/24 16:20 ampicillin AdvReac Unknown Unknown Verified 11/04/24 16:20 griseofulvin AdvReac Unknown Unknown Verified 11/04/24 16:20 guaifenesin (From Entex [place]) AdvReac Unknown Unknown Verified 11/04/24 16:20 hydrocodone bitartrate (From AdvReac Unknown Unknown Verified 11/04/24 16:20 Vicodin) phenylephrine HCl (From AdvReac Unknown Unknown Verified 11/04/24 16:20 Entex LA) phenylpropanolamine HCl AdvReac Unknown Unknown Verified 11/04/24 16:20 (From Entex [place]) Sulfa (Sulfonamide AdvReac Unknown Unknown Verified 11/04/24 16:20 Antibiotics) Family History Father Cancer Surgical History History of bilateral knee arthroplasty History of carpal tunnel releas (more content not included)... Normal [facility] Eosinophil percentageOrdered By: Kai Macedo on 11-04-2024 Eosinophils/100 WBC (Bld) 1.5 % 0-5 [facility] Erythrocyte distribution wid th ratioOrdered By: Kai Maecdo on 11-04-2024 Erythrocyte distribution width (RBC) [Ratio] 14.6 % 11.6-14.6 [facility] Erythrocyte distribution wid th standard deviationOrdered By: Kai Macedo on 11-04-2024 Erythrocyte distribution width (RBC) [Ratio] 49.1 fl High 35.1-43.9 [facility] Glomerular filtration rate ( GFR) estimation/1.73 sq m using serum, plasma, or whole bOrdered By: Kai Macedo on 11-04-2024 GFR/1.73 sq M.predicted among non-blacks MDRD (S/P/Bld) [Vol rate/Area] 88 mL/min/{1.73_m2} >60 [facility] Comment on above: mL/min/1.73m2 CKD-EP I Creatinine Equation (2020) Hematocrit Auto (Bld) [Volum e fraction]Ordered By: Kai Macedo on 11-04-2024 Hematocrit (Bld) [Volume fraction] 37.7 % 37-47 [facility] Hemoglobin measurementOrdere d By: Kai Macedo on 11-04-2024 Hemoglobin (Bld) [Mass/Vol] 12.4 g/dL 12.0-15.0 [facility] Immature granulocytes/100 WB C Auto (Bld)Ordered By: Kai Macedo on 11-04-2024 Immature granulocytes/100 WBC (Bld) 0.400 % 0.0-0.9 [facility] Comment on above: IG% - Immature Granu locytes (promyelocytes, myelocytes and metamyelocytes) > 1% indicates that a LEFT SHIFT is Present. Ketones Test strip Ql (U)Ord ered By: Kai Macedo on 11-04-2024 Ketones Ql (U) Negative Negative [facility] MCV (mean corpuscular volume ) determinationOrdered By: Kai Macedo on 11-04-2024 MCV (RBC) [Entitic vol] 92.9 fL 81-99 [facility] Mean corpuscular hemoglobin (MCH) determinationOrdered By: Kai Macedo 11-04-2024 MCH (RBC) [Entitic mass] 30.5 pg 27.0-32.0 [facility] Mean corpuscular hemoglobin concentration (MCHC) determinationOrdered By: Kai Macedo 11-04-2024 MCHC (RBC) [Mass/Vol] 32.9 g/dL 32-36 [facility] Mean platelet volume determi nationOrdered By: Kai Macedo 11-04-2024 Platelet mean volume (Bld) [Entitic vol] 10.1 fL 6.2-12.0 [facility] Microscopic analysis of urin e for red blood cells (RBC)Ordered By: Kai Macedo on 11-04-2024 Microscopic analysis of urine for red blood cells (RBC) 0-5 SEEN /hpf 0-5 [facility] Monocyte percentageOrdered B y: Kai Macedo on 11-04-2024 Monocytes/100 WBC (Bld) 11.9 % High 0-10 [facility] Mucus LM Ql (Urine sed)Order ed By: Kai Macedo on 11-04-2024 Mucus Ql (Urine sed) 0 SEEN /hpf [facility] Neutrophil percentageOrdered By: Kai Macedo on 11-04-2024 Neutrophils/100 WBC (Bld) 67.2 % 47-70 [facility] Nitrite Test strip Ql (U)Ord ered By: Kai Macedo on 11-04-2024 Nitrite Ql (U) Negative Negative [facility] Nucleated red blood cell per centageOrdered By: Kai Macedo on 11-04-2024 Nucleated RBC/100 WBC (Bld) [Ratio] 0 % 0-5 [facility] Platelet countOrdered By: Jaspal Macedo on 11-04-2024 Platelets (Bld) [#/Vol] 193 10*3/uL 150-450 [facility] Potassium measurement (mass/ volume)Ordered By: Kai Macedo on 11-04-2024 Potassium (Unsp spec) [Mass/Vol] 3.9 mmol/L 3.3-5.1 [facility] Protein Test strip Ql (U)Ord ered By: Kai Macedo on 11-04-2024 Protein Ql (U) 15 mg/dl High Negative [facility] RBC Auto (Bld) [#/Vol]Ordere d By: Kai Macedo on 11-04-2024 RBC (Bld) [#/Vol] 4.06 10*6/uL Low 4.2-5.4 [facility] Serum creatinine measurement (mass/volume)Ordered By: Kai Macedo on 11-04-2024 Creatinine [Mass/Vol] 0.62 mg/dL Low 0.70-1.20 [facility] Serum glucose measurement (m ass/volume)Ordered By: Kaicolby Macedo on 11-04-2024 Glucose [Mass/Vol] 127 mg/dL High 70-99 [facility] Serum or plasma calcium enmanuel urement (mass/volume)Ordered By: Kaicolby Macedo on 11-04-2024 Calcium [Mass/Vol] 8.9 mg/dL 7.6-11.0 [facility] Serum or plasma urea nitroge n measurement (mass/volume)Ordered By: Kai Macedo on 11-04-2024 Urea nitrogen [Mass/Vol] 6 mg/dL 4-19 [facility] S[facility]Ordered By: [facility] Sodium [Moles/Vol] 136 mmol/L 133-145 [facility] Squamous epithelial cells de tection in urine sediment by light microscopyOrdered By: Kai Macedo on 11-04-2024 Epithelial cells.squamous LM Ql (Urine sed) 0-5 SEEN /hpf 5-10 [facility] Urinalysis, Completeon 11-04 EPI,SQUAMOUS 0-5 SEEN Normal 5-10 [facility] Comment on above: Order Comment: CLEAN CATCH Performed By: #### L 100.0100, L500.4050 #### [facility] [address] [place], [address] RBC 0-5 SEEN Normal 0-5 [facility] Comment on above: Order Comment: CLEAN CATCH Performed By: #### L 100.0100, L500.4050 #### [facility] [address] [place], [address] WBC 0-5 SEEN Normal 0-5 [facility] Comment on above: Order Comment: CLEAN CATCH Performed By: #### L 100.0100, L500.4050 #### [facility] [address] [place], [address] BACTERIA 0 SEEN Normal None Seen [facility] Comment on above: Order Comment: CLEAN CATCH Performed By: #### L 100.0100, L500.4050 #### [facility] [address] [place], [address] Mucus Ql (Urine sed) 0 SEEN Normal [facility] Comment on above: Order Comment: CLEAN CATCH Performed By: #### L 100.0100, L500.4050 #### [facility] [address] [place], [address] Urine clarityOrdered By: Kai Macedo on 11-04-2024 Clarity (U) Clear Clear [facility] [facility] Urine color determinationOrd ered By: Kai Macedo on 11-04-2024 Color (U) Straw Yellow [facility] Urine glucose detectionOrder ed By: Kai Macedo on 11-04-2024 Glucose Ql (U) Normal mg/dl Normal [facility] Urine leukocyte esterase det ection by dipstickOrdered By: Kai Macedo on 11-04-2024 Leukocyte esterase Test strip Ql (U) Negative Negative [facility] Urine pHOrdered By: Kai guevara on 11-04-2024 pH (U) 6.5 [pH] 5.0 - 8.0 [facility] Urine sediment bacteria coun t by microscopy (number/high power field)Ordered By: Kaicolby Macedo on 11-04-2024 Bacteria LM.HPF (Urine sed) [#/Area] 0 /[HPF] None Seen [facility] Urine specific gravity measu rementOrdered By: Kaicolby Macedo on 11-04-2024 Specific gravity (U) [Rel density] 1.010 1.002-1.030 [facility] Urine urobilinogen measureme ntOrdered By: Kai Macedo on 11-04-2024 Urobilinogen Ql (U) Normal mg/dl Normal [facility] White blood cell (WBC) count Ordered By: Kai Macedo on 11-04-2024 WBC (Bld) [#/Vol] 7.9 10*3/uL 4.4-11.0 [facility] White blood cell countOrdere d By: Kai Macedo on 11-04-2024 White blood cell count 0-5 SEEN /hpf 0-5 [facility] [id number] 10-08-2024 [id number] HNO ID: [id number] Author: OLMAN PAIZ PT Service: ? Author Type: Physical Therapist Type: [id number] Filed: 10/08/2024 13:54 Note Text: [facility] Physical Therapy Plan of Care Certification Patient Name: Anaya De La O : 1940 CC #: [id number] Date: 10/08/2024 To: Samantha Jordan PA-C From Therapist: Olman Paiz PT RE: Patient Certification/ Recertification Your review, approval and electronic signature are required in order to comply with Payor: MMO MEDICARE / Plan: [employer]MO MEDADVANTAGE HMO / Product Type: HMO / regulations. The identified Physical Therapy PLAN OF CARE for the patient is as follows: M54.12 Radiculopathy, cervical region (primary encounter diagnosis) PLAN OF CARE: Assessment: Anaya De La O presents with diagnosis of possible L C7-C8 Radiculopathy that interferes with nothing (Per patient) . The patient presents with impairments in flexibility, independence in exercise, overall function, posture, range of motion, soft tissue healing, symptom management, and tissue tenderness. Patient did not complete the PROMIS? (Patient Reported Outcome Measures Information System). Prognosis for therapy is Good due to: current objective clinical presentation . The patient will benefit from skilled therapy services to meet the goals established for this plan of care as noted below. Goals for Episode of Care: established 10/08/24 [place] in home exercise program. Patient will decrease pain rating by 2 points to meet minimal clinical important difference for numeric pain rating scale. Restore pain free cervical ROM to WFL to allow for improved functional mobility. Complete household and functional activities without pain/symptoms. Reduce frequency/intensity of L Hand/digit symptoms. Patient Goals: Decrease sxs. Time Frame for Goals and Treatment : 11/08/24 Planned Interventions, Frequency, and Duration: Current Frequency: 1x every other week Duration: 4 weeks Total Number of Visits Planned: 2 Planned Treatment Interventions: Therapeutic exercise (87261), Self-assisted management (02831), Neuromuscular re-education (56666), Therapeutic activities (20137), Manual therapy (05444), Patient/Family/Caregiver Education PLAN FOR NEXT VISIT: Review, correct and progress HEP; trial passive nerve glides, MT. Patient demonstrates good understanding of plan of care and treatment. The above goals and plan of care were discussed and agreed upon by patient/family. For further details regarding this patient refer to the Physical Therapy electronically documented visit dated 10/08/2024. Provider Attestation I have reviewed the treatment plan for Anaya De La O, [facility]# [id number] for the period of 10/08/24 -- 11/13/24, established on 10/08/2024. Signature certifies the need for therapy services. Normal [facility] CNTHERAPYon 10-08-2024 CNTHERAPY OT/PT/Speech Visit ( PTWS) -- ANAYA DE LA O ([id number]) 1940 F Date Time Provider Department 10/08/24 12:15 PM OLMAN PAIZ PTWS Date Time Provider Department Center 10/08/2024 12:15 PM [id number], COLIN PTWS [place] [facility] Reason for Visit: PT Eval [747] Primary Visit Diagnosis:Radiculopathy, cervical region [M54.12] Allergies As of Date: 10/08/2024 Noted Allergy Reaction CAFFEINE 12/01/2004 CODEINE 12/01/2004 [...] in 2005, not noted then Date Reviewed: 09/22/2024 Reviewed by: Samantha oJrdan PA-C - Fully Assessed Prescriptions as of 10/23/2024 - hydrocortisone (ANUSOL-HC) 25 mg suppository 1 suppository by RECTAL route two times a day as needed (hemorrhoids/rectal pain). - atorvastatin (LIPITOR) 40 mg tablet Take 1 tablet by mouth once daily. - FLUoxetine (PROZAC) 10 mg capsule Take 1 capsule by mouth once daily. - Aspirin 81 mg tab Take 81 mg by mouth. - losartan (COZAAR) 25 mg tablet Take 1 tablet by mouth once daily. - cyclobenzaprine (FLEXERIL) 5 mg tablet Take 1 tablet by mouth three times a day as needed. - donepezil (ARICEPT) 10 mg tablet Take 1 tablet by mouth daily at bedtime. - ketoconazole (NIZORAL) 2 % cream Apply to affected area two times a day. - amitriptyline (ELAVIL) 10 mg tablet Take 1 tablet by mouth daily at bedtime. - methotrexate 2.5 mg tablet TAKE 5 TABLET(S) ORAL ONCE A WEEK START 4 TABS ONCE A WEEK FOR 2 WEEKS - fluorometholone (FML LIQUID FILM) 0.1 % ophthalmic suspension Use 1 Drop in both eyes once daily. - FOLIC ACID ORAL Take by mouth. Meds Comments as of 07/12/2019: 09/07/16: Not taking motrin or naprosyn. MS Does not take Naprosyn or Ibuprofen [facility] -May 27, 2019 Patient currently taking her prescription medications as prescriped. Esperanza Singleton RN 2019 Pt. stating has not been taking polyethylene glycol. Shonna Cervantes RN. Engineering Team Supervisor: Therapy (PT/OT/Speech/Resp) ID: [id number] 10/08/2024 12:47 PM Author: OLMAN PAIZ Signed by OLMAN PAIZ PT on 10/08/2024 at 12:47 PM Document text: Program_ID:[id number] Access Code: [email or web address] URL: [email or web address]/ Date: 10-08-2024 Prepared By: Kathryn Flores Program Notes Exercises - Seated Upper Trapezius Stretch - 2 x daily - 7 x weekly - sets - 3-4 reps - Gentle Levator Scapulae Stretch - 2 x daily - 7 x weekly - sets - 3-4 reps - Seated Scapular Retraction - 2 x daily - 7 x weekly - 2 sets - 10 reps - Seated Passive Cervical Retraction - 2 x daily - 7 x weekly - 2 sets - 10 reps Normal [facility] THERAPY NTon 10-08-2024 THERAPY NT HNO ID: [id number] Author: OLMAN PAIZ PT Service: ? Author Type: Physical Therapist Type: Therapy (PT/OT/Speech/Resp) Filed: 10/08/2024 12:47 Note Text: Program_ID:[id number] Access Code: [email or web address] URL: [email or web address]/ Date: 10-08-2024 Prepared By: Kathryn Flores Program Notes Exercises - Seated Upper Trapezius Stretch - 2 x daily - 7 x weekly - sets - 3-4 reps - Gentle Levator Scapulae Stretch - 2 x daily - 7 x weekly - sets - 3-4 reps - Seated Scapular Retraction - 2 x daily - 7 x weekly - 2 sets - 10 reps - Seated Passive Cervical Retraction - 2 x daily - 7 x weekly - 2 sets - 10 reps Normal [facility] CNOVon 09-22-2024 CNOV Office Visit (NEMOWS ) -- ANAYA DE LA O ([id number]) 1940 F Date Time Provider Department 09/22/24 1:30 PM SAMANTHA JORDAN During your visit today, we recorded the following information about you: Pulse Respiration Blood pressure Weight 50/minute 16/minute 126/65 52.9 kg Samantha Jordan PA-C 09/22/2024 2:16 PM Signed [facility] Name: Anaya De La O Age: [age] year old Gender: female Primary Care Provider: Edenilson Nicholson DO Consult requested for TIA by To Duran. Recommendations will be communicated via shared medical record or US mail. Chief Complaint:New Patient (TIA 08/13/24, occasional paresthesia of left FA and hand. Completed 30 day cardiac event monitor. ASA 81 mg and Lipitor 40 mg started.) 09/22/2024 - General NeurologySamantha PA-C ASSESSMENT ASSESSMENT/PLAN: 1. Radiculopathy, cervical region - ICD9: 723.4, ICD10: M54.12 (primary diagnosis) 2. TIA (transient ischemic attack) - ICD9: 435.9, ICD10: G45.9 3. Paresthesia - ICD9: 782.0, ICD10: R20.2 Patient with sudden onset paresthesias of the left hand and left side of face on 08-19-2024 prompting a visit to the emergency department. Patient reports that symptoms resolved on arrival to the ER but it is noted that she had symptoms while in the ER but they resolved prior to admission. Does not appear she had her MRI with her symptoms, this was negative for stroke. CTA of the head and neck showed significant cervical radiculopathy but no occlusion. Patient states she is never had the symptoms before, CTA of the neck did show significant degeneration of the cervical spine but patient denying any neck pain. Was referred to see Dr. Walton for lumbar stenosis. Since has been home she has had a reoccurrence of paresthesias slowly in the left hand, not in the face. I did see some documentation of right-sided paresthesias but patient denies this. Patient reporting regular occurrence of paresthesias to the left hand, but is unable to give me a frequency or duration. notes that she complains about it quite often and it did occur while she was in the appointment today. No significant sensory abnormalities, reflexes with minimal increase on the left upper extremity but no significant weakness. Discussed with the initial presentation to the ER, this could be been a TIA as it involved her face as well. She is currently on aspirin and statin medications, recently finished her heart monitor. Encouraged continued stroke prevention with primary care management. Discussed at length signs and symptoms of stroke that would warrant going to the emergency department. However, due to persistent symptoms in the left hand with normal MRI of the brain per report and degeneration of the cervical spine appreciated on CTA of the neck, concern for cervical radiculopathy. Discussed physical therapy and patient is amenable to this. Discussed obtaining MRI of the cervical spine as well as an EMG but patient deferring these as she is not interested in surgery. No signs or symptoms of acute cord compression at this time. Patient has been agreeable to treatment plan at this time, all questions were answered. Patient to follow-up if symptoms persist. Samantha Jordan PA-C Encounter Diagnosis ICD-10-CM 1. Radiculopathy, cervical region M54.12 CONSULT TO PHYSICAL THERAPY 2. TIA (transient ischemic attack) G45.9 3. Paresthesia R20.2 This is a 84 year old female presenting with left arm paresthesias. Vessel imaging: Mild narrowing of the left subclavian Cardiac monitoring: Pending Lipids: On statin BP controlled? 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 Any acute facial droop, unilateral limb or hemibody weakness, slurring of speech, or inability to speak with retained consciousness, should prompt immediate evaluation in emergency room Chart, labs,and relevant images reviewed. HPI: Admitted on 08/13/24 for TIA at [facility]. Saw PCP on 08/19/24 Patient admitted to [facility] form 08/13 to 08/14 for TIA. Presented to the ER with left hand and face numbness with tingling which resolved prior to admission. Worked up with MRI of the brain which was negative. CTA head and neck showed mild narrowing of left subclavian artery and severe cervical spondylosis, but was otherwise negative. Echo negative with EF 65%. Consulted [facility] tele neurology who recommended 81 mg ASA daily, Lipitor 40 mg daily, and 30 day cardiac event monitor to evaluate for a fib/flutter. Discharged home with recommendation to f/u with PCP in 1-2 weeks and with neurology in 4-6 weeks. Today, patient stat (more content not included)... Normal [facility] Absolute lymphocyte countOrd ered By: Dina Olea on 09-14-2024 Lymphocytes Auto (Unsp spec) [#/Vol] 1.95 10*3/uL 0.83-4.51 [facility] Absolute neutrophil countOrd ered By: [facility] on 09-14-2024 Neutrophils (Bld) [#/Vol] 3.8 10*3/uL 2.0-7.7 [facility] Anion gap in Serum or Plasma Ordered By: Dinacarlos manuel Olea on 09-14-2024 Anion gap [Moles/Vol] 10 mmol/L 5-15 [facility] Automated lymphocyte count a s percentage of total leukocytesOrdered By: Dina Olea on 09-14-2024 Lymphocytes/100 WBC Auto (Unsp spec) 29.3 % 19-41 [facility] BUN/creatinine ratioOrdered By: [facility] on 09-14-2024 Urea nitrogen/Creatinine [Mass ratio] 18.5 mg/mg 10-20 [facility] Basophil percentageOrdered B y: [facility] on 09-14-2024 Basophils/100 WBC (Bld) 0.5 % 0-1 [facility] Bilirubin, totalOrdered By: [facility] on 09-14-2024 Bilirubin [Mass/Vol] 0.47 mg/dL 0.00-1.30 [facility] CBC W/Diff, Automatedon 09-01 Absolute Lymph 1.95 X10 3/uL Normal 0.83-4.51 [facility] Comment on above: Performed By: #### L 500.4050, L100.0100 #### [facility] [address] [place], [address] Absolute Neut 3.8 X10 3/uL Normal 2.0-7.7 [facility] Comment on above: Performed By: #### L 500.4050, L100.0100 #### [facility] [address] [place], [address] Basophils/100 WBC (Bld) 0.5 % Normal 0-1 [facility] Comment on above: Performed By: #### L 500.4050, L100.0100 #### [facility] [address] [place], [address] Eosinophils/100 WBC (Bld) 3.8 % Normal 0-5 [facility] Comment on above: Performed By: #### L 500.4050, L100.0100 #### [facility] [address] [place], [address] Erythrocyte distribution width (RBC) [Ratio] 14.4 % Normal 11.6-14.6 [facility] Comment on above: Performed By: #### L 500.4050, L100.0100 #### [facility] [address] [place], [address] Hematocrit (Bld) [Volume fraction] 36.9 % Low 37-47 [facility] Comment on above: Performed By: #### L 500.4050, L100.0100 #### [facility] [address] [place], [address] Hemoglobin (Bld) [Mass/Vol] 11.8 g/dL Low 12.0-15.0 [facility] Comment on above: Performed By: #### L 500.4050, L100.0100 #### [facility] [address] [place], [address] IG% 0.500 Normal 0.0-0.9 [facility] Comment on above: Result Comment: IG% - Immature Granulocytes (promyelocytes, myelocytes and metamyelocytes) > 1% indicates that a LEFT SHIFT is Present. Performed By: #### L 500.4050, L100.0100 #### [facility] [address] [place], [address] Lymphocytes/100 WBC (Bld) 29.3 % Normal 19-41 [facility] Comment on above: Performed By: #### L 500.4050, L100.0100 #### [facility] [address] [place], [address] MCH (RBC) [Entitic mass] 31.1 pg Normal 27.0-32.0 [facility] Comment on above: Performed By: #### L 500.4050, L100.0100 #### [facility] [address] [place], [address] MCHC (RBC) [Mass/Vol] 32.0 g/dL Normal 32-36 [facility] Comment on above: Performed By: #### L 500.4050, L100.0100 #### [facility] [address] [place], [address] MCV (RBC) [Entitic vol] 97.4 fL Normal 81-99 [facility] Comment on above: Performed By: #### L 500.4050, L100.0100 #### [facility] [address] [place], [address] Monocytes/100 WBC (Bld) 9.3 % Normal 0-10 [facility] Comment on above: Performed By: #### L 500.4050, L100.0100 #### [facility] [address] [place], [address] Neutrophils/100 WBC (Bld) 56.6 % Normal 47-70 [facility] Comment on above: Performed By: #### L 500.4050, L100.0100 #### [facility] [address] [place], [address] Nucleated RBC (Bld) [#/Vol] 0 10*3/uL Normal 0-5 [facility] Comment on above: Performed By: #### L 500.4050, L100.0100 #### [facility] [address] [place], [address] Platelet mean volume (Bld) [Entitic vol] 10.7 fL Normal 6.2-12.0 [facility] Comment on above: Performed By: #### L 500.4050, L100.0100 #### [facility] [address] [place], [address] Platelets (Bld) [#/Vol] 217 10*3/uL Normal 150-450 [facility] Comment on above: Performed By: #### L 500.4050, L100.0100 #### [facility] [address] [place], [address] RBC (Bld) [#/Vol] 3.79 10*6/uL Low 4.2-5.4 [facility] Comment on above: Performed By: #### L 500.4050, L100.0100 #### [facility] [address] [place], [address] RDW SD 50.5 fl High 35.1-43.9 [facility] Comment on above: Performed By: #### L 500.4050, L100.0100 #### [facility] [address] [place], [address] WBC (Bld) [#/Vol] 6.7 10*3/uL Normal 4.4-11.0 [facility] Comment on above: Performed By: #### L 500.4050, L100.0100 #### [facility] [address] [place], [address] Carbon dioxide, total [Moles /volume] in Central venous bloodOrdered By: Dina Olea on 09-14-2024 CO2 [Moles/Vol] 25.5 mmol/L 21.0-32.0 [facility] Chloride assayOrdered By: Susan Olea on 09-14-2024 Chloride [Moles/Vol] 105 mmol/L 98-108 [facility] Comprehensive Metabolic Prof ilon 09-14-2024 Albumin [Mass/Vol] 3.7 g/dL Normal 3.4-4.8 [facility] Comment on above: Performed By: #### L 500.4050, L100.0100 #### [facility] [address] [place], [address] Albumin/Globulin [Mass ratio] 1.6 {ratio} Normal 0.9-2.4 [facility] Comment on above: Performed By: #### L 500.4050, L100.0100 #### [facility] [address] [place], [address] ALK PHOS 115 U/L High 35-104 [facility] Comment on above: Performed By: #### L 500.4050, L100.0100 #### [facility] [address] [place], [address] ALT [Catalytic activity/Vol] 31 U/L Normal <=34 [facility] Comment on above: Performed By: #### L 500.4050, L100.0100 #### [facility] [address] [place], [address] AST [Catalytic activity/Vol] 27 U/L Normal <=31 [facility] Comment on above: Performed By: #### L 500.4050, L100.0100 #### [facility] [address] [place], [address] Bilirubin [Mass/Vol] 0.47 mg/dL Normal 0.00-1.30 [facility] Comment on above: Performed By: #### L 500.4050, L100.0100 #### [facility] [address] [place], [address] BUN/CRE 18.5 RATIO Normal 10-20 [facility] Comment on above: Performed By: #### L 500.4050, L100.0100 #### [facility] [address] [place], [address] Calcium [Mass/Vol] 8.9 mg/dL Normal 7.6-11.0 [facility] Comment on above: Performed By: #### L 500.4050, L100.0100 #### [facility] [address] [place], [address] Chloride [Moles/Vol] 105 mmol/L Normal 98-108 [facility] Comment on above: Performed By: #### L 500.4050, L100.0100 #### [facility] [address] [place], [address] CO2 [Moles/Vol] 25.5 mmol/L Normal 21.0-32.0 [facility] Comment on above: Performed By: #### L 500.4050, L100.0100 #### [facility] [address] [place], [address] Creatinine [Mass/Vol] 0.63 mg/dL Low 0.70-1.20 [facility] Comment on above: Performed By: #### L 500.4050, L100.0100 #### [facility] [address] [place], [address] GAP 10 Normal 5-15 [facility] Comment on above: Performed By: #### L 500.4050, L100.0100 #### [facility] [address] [place], [address] GFR/1.73 sq M.predicted among non-blacks MDRD (S/P/Bld) [Vol rate/Area] 87 mL/min/{1.73_m2} Normal >60 [facility] Comment on above: Result Comment: mL/m in/1.73m2 CKD-EPI Creatinine Equation (2020) Performed By: #### L 500.4050, L100.0100 #### [facility] [address] [place], [address] Globulin (S) [Mass/Vol] 2.3 g/dL Normal 2.2-4.2 [facility] Comment on above: Performed By: #### L 500.4050, L100.0100 #### [facility] [address] [place], [address] Glucose [Mass/Vol] 90 mg/dL Normal 70-99 [facility] Comment on above: Performed By: #### L 500.4050, L100.0100 #### [facility] [address] [place], [address] Potassium [Moles/Vol] 4.2 mmol/L Normal 3.3-5.1 [facility] Comment on above: Performed By: #### L 500.4050, L100.0100 #### [facility] [address] [place], [address] Sodium [Moles/Vol] 140 mmol/L Normal 133-145 [facility] Comment on above: Performed By: #### L 500.4050, L100.0100 #### [facility] [address] [place], [address] T PROT 6.0 g/dL Normal 5.9-8.4 [facility] Comment on above: Performed By: #### L 500.4050, L100.0100 #### [facility] [address] [place], [address] Urea nitrogen [Mass/Vol] 12 mg/dL Normal 4-19 [facility] Comment on above: Performed By: #### L 500.4050, L100.0100 #### [facility] [address] [place], [address] Eosinophil percentageOrdered By: Dina Olea on 09-14-2024 Eosinophils/100 WBC (Bld) 3.8 % 0-5 [facility] Erythrocyte distribution wid th ratioOrdered By: Dina Olea on 09-14-2024 Erythrocyte distribution width (RBC) [Ratio] 14.4 % 11.6-14.6 [facility] Erythrocyte distribution wid th standard deviationOrdered By: Dina Olea on 09-14-2024 Erythrocyte distribution width (RBC) [Ratio] 50.5 fl High 35.1-43.9 [facility] Glomerular filtration rate ( GFR) estimation/1.73 sq m using serum, plasma, or whole bOrdered By: Dina Olea on 09-14-2024 GFR/1.73 sq M.predicted among non-blacks MDRD (S/P/Bld) [Vol rate/Area] 87 mL/min/{1.73_m2} >60 [facility] Comment on above: mL/min/1.73m2 CKD-EP I Creatinine Equation (2020) Hematocrit Auto (Bld) [Volum e fraction]Ordered By: Dina Olea on 09-14-2024 Hematocrit (Bld) [Volume fraction] 36.9 % Low 37-47 [facility] Hemoglobin measurementOrdere d By: Dina Olea on 09-14-2024 Hemoglobin (Bld) [Mass/Vol] 11.8 g/dL Low 12.0-15.0 [facility] Immature granulocytes/100 WB C Auto (Bld)Ordered By: Dina Olea on 09-14-2024 Immature granulocytes/100 WBC (Bld) 0.500 % 0.0-0.9 [facility] Comment on above: IG% - Immature Granu locytes (promyelocytes, myelocytes and metamyelocytes) > 1% indicates that a LEFT SHIFT is Present. Laboratory - Chemistry and C hemistry - challengeOrdered By: Dina Olea on 09-14-2024 AST [Catalytic activity/Vol] 27 U/L <32 [facility] MCV (mean corpuscular volume ) determinationOrdered By: Dina Olea 09-14-2024 MCV (RBC) [Entitic vol] 97.4 fL 81-99 [facility] Mean corpuscular hemoglobin (MCH) determinationOrdered By: Dina Olea on 09-14-2024 MCH (RBC) [Entitic mass] 31.1 pg 27.0-32.0 [facility] Mean corpuscular hemoglobin concentration (MCHC) determinationOrdered By: Dina Olea on 09-14-2024 MCHC (RBC) [Mass/Vol] 32.0 g/dL 32-36 [facility] Mean platelet volume determi nationOrdered By: Dina Olea on 09-14-2024 Platelet mean volume (Bld) [Entitic vol] 10.7 fL 6.2-12.0 [facility] Monocyte percentageOrdered B y: Dina Olea on 09-14-2024 Monocytes/100 WBC (Bld) 9.3 % 0-10 [facility] Neutrophil percentageOrdered By: Dina Olea on 09-14-2024 Neutrophils/100 WBC (Bld) 56.6 % 47-70 [facility] Nucleated red blood cell per centageOrdered By: Dina Olea on 09-14-2024 Nucleated RBC/100 WBC (Bld) [Ratio] 0 % 0-5 [facility] Platelet countOrdered By: Susan Olea on 09-14-2024 Platelets (Bld) [#/Vol] 217 10*3/uL 150-450 [facility] Potassium measurement (mass/ volume)Ordered By: Dina Olea on 09-14-2024 Potassium (Unsp spec) [Mass/Vol] 4.2 mmol/L 3.3-5.1 [facility] RBC Auto (Bld) [#/Vol]Ordere d By: Dina Olea on 09-14-2024 RBC (Bld) [#/Vol] 3.79 10*6/uL Low 4.2-5.4 [facility] Serum creatinine measurement (mass/volume)Ordered By: Dina Olea on 09-14-2024 Creatinine [Mass/Vol] 0.63 mg/dL Low 0.70-1.20 [facility] Serum globulin measurementOr dered By: Dina Olea on 09-14-2024 Globulin (S) [Mass/Vol] 2.3 g/dL 2.2-4.2 [facility] Serum glucose measurement (m ass/volume)Ordered By: Dina Olea on 09-14-2024 Glucose [Mass/Vol] 90 mg/dL 70-99 [facility] Serum or plasma alanine javier otransferase (ALT) measurementOrdered By: Dina Olea on 09-14-2024 ALT [Catalytic activity/Vol] 31 U/L <35 [facility] Serum or plasma albumin enmanuel urement (mass/volume)Ordered By: Dina Olea on 09-14-2024 Albumin [Mass/Vol] 3.7 g/dL 3.4-4.8 [facility] Serum or plasma albumin/glob ulin mass ratioOrdered By: Dina Olea on 09-14-2024 Albumin/Globulin [Mass ratio] 1.6 {ratio} 0.9-2.4 [facility] Serum or plasma alkaline preston sphatase measurementOrdered By: Dina Olea on 09-14-2024 ALP [Catalytic activity/Vol] 115 U/L High 35-104 [facility] Serum or plasma calcium enmanuel urement (mass/volume)Ordered By: Dina Olea on 09-14-2024 Calcium [Mass/Vol] 8.9 mg/dL 7.6-11.0 [facility] Serum or plasma urea nitroge n measurement (mass/volume)Ordered By: Dina Olea on 09-14-2024 Urea nitrogen [Mass/Vol] 12 mg/dL 4-19 [facility] Sodium levelOrdered By: Rupal Olea on 09-14-2024 Sodium [Moles/Vol] 140 mmol/L 133-145 [facility] Total proteinOrdered By: Violet Olea on 09-14-2024 Protein [Mass/Vol] 6.0 g/dL 5.9-8.4 [facility] White blood cell (WBC) count Ordered By: Dina Olea on 09-14-2024 WBC (Bld) [#/Vol] 6.7 10*3/uL 4.4-[facility] ) -- ANAYA DE LA O ([id number]) 1940 F Date Time Provider Department 08/19/24 10[facility] During your visit today, we recorded the following information about you: Pulse Blood pressure Weight Height 50/minute 112/60 52.7 kg 1.473 m To Duran MD 08/19/2024 10:41 AM Signed Chief Complaint Patient presents with: Hospital F/U Recording using ambient VocoMD software for draft documentation of the visit was discussed with the patient/authorized sales representative printing supplies; all questions welcomed and answered. Patient/authorized sales representative printing supplies agreed to proceed HPI nAaya De La O is a 84 year old female who presents here today for Hospital Discharge Follow up. Patient admitted to [facility] form 08/13 to 08/14 for TIA. Presented to the ER with left hand and face numbness with tingling which resolved prior to admission. Worked up with MRI of the brain which was negative. CTA head and neck showed mild narrowing of left subclavian artery and severe cervical spondylosis, but was otherwise negative. Echo negative with EF 65%. Consulted [facility] tele neurology who recommended 81 mg ASA daily, Lipitor 40 mg daily, and 30 day cardiac event monitor to evaluate for a fib/flutter. Discharged home with recommendation to f/u with PCP in 1-2 weeks and with neurology in 4-6 weeks. Today, patient states that she has not had any recurrent numbness and tingling in the face, but has had some occasional paresthesias into her left forearm and hand. Episodes typically last at most 1 minute and occur several times per day. Denies headache, slurred speech, vision changes, facial droop, weakness. Compliant with her regimen since discharge. Has not gotten the event monitor yet, but [facility] is supposed to be mailing it to her. Denies chest pain, SOB, palpitations, LE edema, lightheadedness/dizziness, syncope. Patient has not scheduled f/u with neurology yet. Past medical history, appointments, medications, allergies reviewed. [...] on File Prior to Visit Medication Sig atorvastatin (LIPITOR) 40 mg tablet Take 40 mg by mouth once daily. Aspirin 81 mg tab Take 81 mg by mouth. losartan (COZAAR (more content not included)... Normal [facility] Absolute lymphocyte countOrd ered By: Ramona Darden on 08-14-2024 Lymphocytes Auto (Unsp spec) [#/Vol] 1.54 10*3/uL 0.83-4.51 [facility] Absolute neutrophil countOrd ered By: Ramona Darden on 08-14-2024 Neutrophils (Bld) [#/Vol] 4.0 10*3/uL 2.0-7.7 [facility] Anion gap in Serum or Plasma Ordered By: Ramona Darden on 08-14-2024 Anion gap [Moles/Vol] 12 mmol/L 5-15 [facility] Automated lymphocyte count a s percentage of total leukocytesOrdered By: Ramona Darden on 08-14-2024 Lymphocytes/100 WBC Auto (Unsp spec) 24.7 % 19-41 [facility] BUN/creatinine ratioOrdered By: Ramona Darden on 08-14-2024 Urea nitrogen/Creatinine [Mass ratio] 8.2 mg/mg Low 10-20 [facility] Basophil percentageOrdered B y: Ramona Darden on 08-14-2024 Basophils/100 WBC (Bld) 0.5 % 0-1 [facility] Bilirubin, totalOrdered By: Ramona Darden on 08-14-2024 Bilirubin [Mass/Vol] 0.64 mg/dL 0.00-1.30 [facility] Brain without Contraston Brain without Contrast [facility] Imaging Services [address] [place], [place] [id number] Brain without Contrast MR#: [id number] Acct: [id number] Name: ANAYA DE LA O Rep #: [id number] : 1940 F 84 From: Diallo Blair MD PCP: Dr. Edenilson Nicholson DO Status: ADM CHRISTINE Study: Brain without Contrast Date of Exam: 08/14/24 Exam# [id number] Ordering Dr: Ramona Darden DO PROCEDURE: BRAIN WITHOUT CONTRAST 08/14/2024 REASON FOR EXAM: STROKE TECHNIQUE: Noncontrast brain MRI. Multiplanar and multisequence images were obtained. COMPARISON: CT head without contrast and CTA head and neck with contrast, 08/13/2024 FINDINGS: There is mild diffuse cerebral atrophy with concomitant ventriculomegaly. There are few punctate foci of abnormal periventricular and subcortical white matter signal, in both cerebral hemispheres, consistent with chronic ischemic white matter disease. There is a normal sulcal pattern and gyral configuration. There is no evidence of acute intracranial hemorrhage or infarction. The simeon-white differentiation is well preserved. There is no evidence of restricted diffusion. The basilar cisterns are normal. There are normal flow voids demonstrated in the recognized intracranial vessels. The cerebellum and brainstem are unremarkable. The cerebellar pontine angles are normal. The craniovertebral junction is normal. The sella and suprasellar regions are normal. The orbits and retro-orbital regions are unremarkable. The nasal septum is midline. The paranasal sinuses are clear. The mastoid air cells are clear. There is normal bone marrow signal in the skull base and calvarium. There is a sebaceous cyst in the scalp, just to the right of the vertex. MRI/Brain without Contrast IMPRESSION: 1. Mild cerebral atrophy. 2. No evidence of acute intracranial pathology. Reading Location: [place] [address] CC: Dr. Edenilson Nicholson DO; Dr. Ramona Darden DO Medical Staff Manager: Signed Normal [facility] CBC W/Diff, Automatedon 08-02 Absolute Lymph 1.54 X10 3/uL Normal 0.83-4.51 [facility] Comment on above: Performed By: #### L 100.0100, L500.4050 #### [facility] [address] [place], [address] Absolute Neut 4.0 X10 3/uL Normal 2.0-7.7 [facility] Comment on above: Performed By: #### L 100.0100, L500.4050 #### [facility] [address] [place], [address] Basophils/100 WBC (Bld) 0.5 % Normal 0-1 [facility] Comment on above: Performed By: #### L 100.0100, L500.4050 #### [facility] [address] [place], [address] Eosinophils/100 WBC (Bld) 1.9 % Normal 0-5 [facility] Comment on above: Performed By: #### L 100.0100, L500.4050 #### [facility] [address] [place], [address] Erythrocyte distribution width (RBC) [Ratio] 14.0 % Normal 11.6-14.6 [facility] Comment on above: Performed By: #### L 100.0100, L500.4050 #### [facility] [address] [place], [address] Hematocrit (Bld) [Volume fraction] 38.7 % Normal 37-47 [facility] Comment on above: Performed By: #### L 100.0100, L500.4050 #### [facility] [address] [place], [address] Hemoglobin (Bld) [Mass/Vol] 12.8 g/dL Normal 12.0-15.0 [facility] Comment on above: Performed By: #### L 100.0100, L500.4050 #### [facility] [address] [place], [address] IG% 0.300 Normal 0.0-0.9 [facility] Comment on above: Result Comment: IG% - Immature Granulocytes (promyelocytes, myelocytes and metamyelocytes) > 1% indicates that a LEFT SHIFT is Present. Performed By: #### L 100.0100, L500.4050 #### [facility] [address] [place], [address] Lymphocytes/100 WBC (Bld) 24.7 % Normal 19-41 [facility] Comment on above: Performed By: #### L 100.0100, L500.4050 #### [facility] [address] [place], [address] MCH (RBC) [Entitic mass] 30.7 pg Normal 27.0-32.0 [facility] Comment on above: Performed By: #### L 100.0100, L500.4050 #### [facility] [address] [place], [address] MCHC (RBC) [Mass/Vol] 33.1 g/dL Normal 32-36 [facility] Comment on above: Performed By: #### L 100.0100, L500.4050 #### [facility] [address] [place], [address] MCV (RBC) [Entitic vol] 92.8 fL Normal 81-99 [facility] Comment on above: Performed By: #### L 100.0100, L500.4050 #### [facility] [address] [place], [address] Monocytes/100 WBC (Bld) 8.7 % Normal 0-10 [facility] Comment on above: Performed By: #### L 100.0100, L500.4050 #### [facility] [address] [place], [address] Neutrophils/100 WBC (Bld) 63.9 % Normal 47-70 [facility] Comment on above: Performed By: #### L 100.0100, L500.4050 #### [facility] [address] [place], [address] Nucleated RBC (Bld) [#/Vol] 0 10*3/uL Normal 0-5 [facility] Comment on above: Performed By: #### L 100.0100, L500.4050 #### [facility] [address] [place], [address] Platelet mean volume (Bld) [Entitic vol] 10.7 fL Normal 6.2-12.0 [facility] Comment on above: Performed By: #### L 100.0100, L500.4050 #### [facility] [address] [place], [address] Platelets (Bld) [#/Vol] 200 10*3/uL Normal 150-450 [facility] Comment on above: Performed By: #### L 100.0100, L500.4050 #### [facility] [address] [place], [address] RBC (Bld) [#/Vol] 4.17 10*6/uL Low 4.2-5.4 [facility] Comment on above: Performed By: #### L 100.0100, L500.4050 #### [facility] [address] [place], [address] RDW SD 47.1 fl High 35.1-43.9 [facility] Comment on above: Performed By: #### L 100.0100, L500.4050 #### [facility] [address] [place], [address] WBC (Bld) [#/Vol] 6.2 10*3/uL Normal 4.4-11.0 [facility] Comment on above: Performed By: #### L 100.0100, L500.4050 #### [facility] [address] [place], [address] Calculated very low density lipoprotein (VLDL) cholesterol measurementOrdered By: Ramona Darden on 08-14-2024 Calculated very low density lipoprotein (VLDL) cholesterol measurement 14 mg/dL 5-40 [facility] Carbon dioxide, total [Moles /volume] in Central venous bloodOrdered By: Ramona Darden on 08-14-2024 CO2 [Moles/Vol] 23.5 mmol/L 21.0-32.0 [facility] Chloride assayOrdered By: Dana Darden on 08-14-2024 Chloride [Moles/Vol] 104 mmol/L 98-108 [facility] Comprehensive Metabolic Prof ilon 08-14-2024 Albumin [Mass/Vol] 3.9 g/dL Normal 3.4-4.8 [facility] Comment on above: Order Comment: Comme nts: NPO at [place] prior to lipid panel Performed By: #### L 501.9985 #### [facility] [address] [place], [address] Albumin/Globulin [Mass ratio] 1.7 {ratio} Normal 0.9-2.4 [facility] Comment on above: Order Comment: Comme nts: NPO at [place] prior to lipid panel Performed By: #### L 501.9985 #### [facility] [address] [place], [address] ALK PHOS 123 U/L High 35-104 [facility] Comment on above: Order Comment: Comme nts: NPO at [place] prior to lipid panel Performed By: #### L [id number] #### [facility] [address] [place], [address] ALT [Catalytic activity/Vol] 17 U/L Normal <=34 [facility] Comment on above: Order Comment: Comme nts: NPO at [place] prior to lipid panel Performed By: #### L 501.9985 #### [facility] [address] [place], [address] AST [Catalytic activity/Vol] 26 U/L Normal <=31 [facility] Comment on above: Order Comment: Comme nts: NPO at [place] prior to lipid panel Performed By: #### L [id number] #### [facility] [address] [place], [address] Bilirubin [Mass/Vol] 0.64 mg/dL Normal 0.00-1.30 [facility] Comment on above: Order Comment: Comme nts: NPO at [place] prior to lipid panel Performed By: #### L 501.9985 #### [facility] [address] [place], [address] BUN/CRE 8.2 RATIO Low 10-20 [facility] Comment on above: Order Comment: Comme nts: NPO at [place] prior to lipid panel Performed By: #### L 501.9985 #### [facility] [address] [place], [address] Calcium [Mass/Vol] 9.4 mg/dL Normal 7.6-11.0 [facility] Comment on above: Order Comment: Comme nts: NPO at [place] prior to lipid panel Performed By: #### L [id number] #### [facility] [address] [place], [address] Chloride [Moles/Vol] 104 mmol/L Normal 98-108 [facility] Comment on above: Order Comment: Comme nts: NPO at [place] prior to lipid panel Performed By: #### L 501.9985 #### [facility] [address] [place], [address] CO2 [Moles/Vol] 23.5 mmol/L Normal 21.0-32.0 [facility] Comment on above: Order Comment: Comme nts: NPO at [place] prior to lipid panel Performed By: #### L 501.9985 #### [facility] [address] [place], [address] Creatinine [Mass/Vol] 0.56 mg/dL Low 0.70-1.20 [facility] Comment on above: Order Comment: Comme nts: NPO at [place] prior to lipid panel Performed By: #### L 501.9985 #### [facility] [address] [place], [address] ECRCL 39.50 ml/min Low 50-250 [facility] Comment on above: Order Comment: Comme nts: NPO at [place] prior to lipid panel Performed By: #### L [id number] #### [facility] [address] [place], [address] GAP 12 Normal 5-15 [facility] Comment on above: Order Comment: Comme nts: NPO at [place] prior to lipid panel Performed By: #### L [id number] #### [facility] [address] [place], [address] GFR/1.73 sq M.predicted among non-blacks MDRD (S/P/Bld) [Vol rate/Area] 90 mL/min/{1.73_m2} Normal >60 [facility] Comment on above: Order Comment: Comme nts: NPO at [place] prior to lipid panel Result Comment: mL/m in/1.73m2 CKD-EPI Creatinine Equation (2020) Performed By: #### L [id number] #### [facility] [address] [place], [address] Globulin (S) [Mass/Vol] 2.3 g/dL Normal 2.2-4.2 [facility] Comment on above: Order Comment: Comme nts: NPO at [place] prior to lipid panel Performed By: #### L [id number] #### [facility] [address] [place], [address] Glucose [Mass/Vol] 106 mg/dL High 70-99 [facility] Comment on above: Order Comment: Comme nts: NPO at [place] prior to lipid panel Performed By: #### L [id number] #### [facility] [address] [place], [address] Potassium [Moles/Vol] 3.8 mmol/L Normal 3.3-5.1 [facility] Comment on above: Order Comment: Comme nts: NPO at [place] prior to lipid panel Performed By: #### L 501.9985 #### [facility] [address] [place], [address] Sodium [Moles/Vol] 140 mmol/L Normal 133-145 [facility] Comment on above: Order Comment: Comme nts: NPO at [place] prior to lipid panel Performed By: #### L [id number] #### [facility] [address] [place], [address] T PROT 6.2 g/dL Normal 5.9-8.4 [facility] Comment on above: Order Comment: Comme nts: NPO at [place] prior to lipid panel Performed By: #### L [id number] #### [facility] [address] [place], [address] Urea nitrogen [Mass/Vol] 5 mg/dL Normal 4-19 [facility] Comment on above: Order Comment: Comme nts: NPO at [place] prior to lipid panel Performed By: #### L [id number] #### [facility] [address] [place], [address] Echocardiogram study reportO rdered By: Pablo Mak on 08-14-2024 Study report [facility] [address] [place] [address] Echo Complete 08/14/24 0820 MR#: [id number] Acct: [id number] Name: ANAYA DE LA O Rep #:[id number] : 1940 84 From: Pablo Mak MD Attending Dr: Dr. Jerome Brasher, DO Status: ADM CHRISTINE Ordering Dr: Ramona Darden DO Date: 02/25 Location: U Sex: F C Admitted: 08/13/24 Reason For Study Reason For Study: TIA/Stroke Procedure This was a 2D Doppler, Color Flow transthoracic echocardiogram. Exam performed portable in patient room. Left Ventricle Normal left ventricle. Normal LV thickness. Left ventricular systolic function is normal. The LV ejection fraction is 65 %. Grade 1 diastolic dysfunction. Right Ventricle Normal right ventricle. Normal systolic function. Atria Normal left atrium. Normal right atrium. Mitral Valve There is no stenosis. Trivial mitral valve insufficiency. Tricuspid Valve Normal tricuspid valve. Mild tricuspid valve insufficiency. Aortic Valve Aortic valve is mildly calcified Aortic valve is tricuspid. There is no aortic stenosis. Mild (1+) aortic valve insufficiency. Great Vessels Aortic root dimensions is within normal limits. Pericardium/Pleural No pericardial effusion. Medication Performed a rapid injection of agitated mix of 9 cc saline and 1cc air to assessfor atrial septal defect. MMode/2D Measurements & Calculations LVIDd: 3.7 cm IVSd: 0.95 cm Ao root diam: 2.8 cm LVIDs: 2.0 cm LVPWd: 0.92 cm RVDd: 3.2 cm FS: 45.9 % LAV(MOD-bp): 28.4 ml LVAd ap4: 16.3 cm2 SV(MOD-sp4): 23.0 ml LAV(MOD-bp) Indexed: 19.2 ml/m2 LVLd ap4: 6.5 cm SI(MOD-sp4): 15.5 ml/m2 LAV(MOD-sp2): 35.6 ml EDV(MOD-sp4): 34.1 ml LAV(MOD-sp4): 21.5 ml EDV(sp4-el): 34.9 ml LVAs ap4: 8.0 cm2 LVLs ap4: 5.0 cm ESV(MOD-sp4): 11.1 ml ESV(sp4-el): 10.9 ml EF(MOD-sp4): 67.5 % EF(sp4-el): 68.8 % __ SV(sp4-el): 24.0 ml LA A4 area: 10.7 cm2 LA dimension(2D): 2.7 cm __ RA A4 area: 7.2 cm2 TAPSE: 2.1 cm Time Measurements MV dec time: 0.31 sec Doppler Measurements & Calculations MV E max tracy: 69.3 cm/sec Lat Peak E' Tracy: 7.4 cm/sec Med Peak E' Tracy: 6.5 cm/sec MV A max tracy: 90.3 cm/sec E/E' lat: 9.4 E/E' med: 10.6 MV E/A: 0.77 Ao V2 max: 154.2 cm/sec LV V1 max: 111.2 cm/sec MV dec slope: 226.3 cm/sec2 Ao max P.7 mmHg LV V1 max P.9 mmHg Ao V2 mean: 103.4 cm/sec LV V1 mean P.4 mmHg Ao mean P.0 mmHg LV V1 mean: 71.4 cm/sec Ao V2 VTI: 33.9 cm LV V1 VTI: 27.3 cm AV (velocity ratio): 0.81 __ PA V2 max: 93.4 cm/sec PI end-d tracy: 98.3 cm/sec TR max tracy: 259.7 cm/sec TR max P.0 mmHg ECHO/Echo Complete Interpretation Summary The LV ejection fraction is 65 %. Left ventricular systolic function is normal. Mild (1+) aortic valve insufficiency. Grade 1 diastolic dysfunction Trivial mitral valve insufficiency. Ordering Physician: Ramona Darden Referring Physician: Edenilson Nicholson Performed By: Sharon Selby, DARLINE, RVT 08/14/24 1524 Date _ Pablo Mak MD CC: Dr. Julius Pete DO; Dr. Jerome Brasher DO; Dr. Edenilson Nicholson DO; Dr. Ramona Darden DO ~ Date Dictated: 08/14/24819 Date Transcribed: 08/14/241523 Medical Staff Manager: Perry [facility] Eosinophil percentageOrdered By: Ramona Darden on 08-14-2024 Eosinophils/100 WBC (Bld) 1.9 % 0-5 [facility] Erythrocyte distribution wid th ratioOrdered By: Ramona Darden on 08-14-2024 Erythrocyte distribution width (RBC) [Ratio] 14.0 % 11.6-14.6 [facility] Erythrocyte distribution wid th standard deviationOrdered By: Ramona Darden on 08-14-2024 Erythrocyte distribution width (RBC) [Ratio] 47.1 fl High 35.1-43.9 [facility] Glomerular filtration rate ( GFR) estimation/1.73 sq m using serum, plasma, or whole bOrdered By: Ramona Darden on 08-14-2024 GFR/1.73 sq M.predicted among non-blacks MDRD (S/P/Bld) [Vol rate/Area] 90 mL/min/{1.73_m2} >60 [facility] Comment on above: mL/min/1.73m2 CKD-EP I Creatinine Equation (2020) Hematocrit Auto (Bld) [Volum e fraction]Ordered By: Ramona Darden on 08-14-2024 Hematocrit (Bld) [Volume fraction] 38.7 % 37-47 [facility] Hemoglobin measurementOrdere d By: Ramona Darden on 08-14-2024 Hemoglobin (Bld) [Mass/Vol] 12.8 g/dL 12.0-15.0 [facility] Immature granulocytes/100 WB C Auto (Bld)Ordered By: Ramona Darden on 08-14-2024 Immature granulocytes/100 WBC (Bld) 0.300 % 0.0-0.9 [facility] Comment on above: IG% - Immature Granu locytes (promyelocytes, myelocytes and metamyelocytes) > 1% indicates that a LEFT SHIFT is Present. LDL calc ser/plasOrdered By: Ramona Darden on 08-14-2024 Cholesterol in LDL [Mass/Vol] 126 mg/dL [facility] Comment on above: Fnxnostigj=273-480 m g/dL & Higher Jokt=148 mg/dL or greater Laboratory - Chemistry and C hemistry - challengeOrdered By: Ramona Darden on 08-14-2024 AST [Catalytic activity/Vol] 26 U/L <32 [facility] Lipid Profileon 08-14-2024 CHOL:HDL 2.83 Normal [facility] Comment on above: Order Comment: Comme nts: NPO at [place] prior to lipid panel Performed By: #### L 501.9985 #### [facility] Laboratory [address] [place], [address] Cholesterol [Mass/Vol] 217 mg/dL High <=200 [facility] Comment on above: Order Comment: Comme nts: NPO at [place] prior to lipid panel Result Comment: Chol esterol level, Desirable <200 mg/dL Borderline high cholesterol 200-239 mg/dL High cholesterol >=240 mg/dL Recommendations of the NCEP Adult Treatment Panel for the following risk-cutoff thresholds for the [place] population. Performed By: #### L 501.9985 #### [facility] [address] [place], [address] Cholesterol in HDL [Mass/Vol] 77 mg/dL Normal [facility] Comment on above: Order Comment: Comme nts: NPO at [place] prior to lipid panel Result Comment: Yolanda onal Cholesterol Education Program (NCEP) guidelines: <40 mg/dL: Low HDL-cholesterol (major risk factor for CHD) >= 60 mg/dL: High HDL-cholesterol (negative risk factor for CHD) HDL-cholesterol is affected by a number of factors, e.g. smoking, exercise, hormones, sex and age. Performed By: #### L 501.9985 #### [facility] [address] [place], [address] Cholesterol in LDL [Mass/Vol] 126 mg/dL Normal [facility] Comment on above: Order Comment: Comme nts: NPO at [place] prior to lipid panel Result Comment: Bord zamkek=052-354 mg/dL Higher Bmod=446 mg/dL or greater Performed By: #### L 501.9985 #### [facility] [address] [place], [address] Cholesterol in VLDL [Mass/Vol] 14 mg/dL Normal 5-40 [facility] Comment on above: Order Comment: Comme nts: NPO at [place] prior to lipid panel Performed By: #### L 501.9985 #### [facility] [address] [place], [address] Triglyceride [Mass/Vol] 70 mg/dL Normal [facility] Comment on above: Order Comment: Comme nts: NPO at [place] prior to lipid panel Result Comment: The drugs N-Acetylcysteine and Metamizole may falsely depress this assay. Normal range: <150 mg/dL Borderline High: 150-199 mg/dL High: 200-499 mg/dL Very High: >500 mg/dL Performed By: #### L 501.9985 #### [facility] [address] [place], [place], [address] MCV (mean corpuscular volume ) determinationOrdered By: Ramona Darden on 08-14-2024 MCV (RBC) [Entitic vol] 92.8 fL 81-99 [facility] MR/CON.PCM.NEon 08-14-2024 MR/CON.PCM.NE [facility] Medical Records Department [address] [place] [address] Consultation - Neurology 08/14/24 1424 MR#: [id number] Acct: [id number] Name: ANAYA DE LA O Rep #: [id number] : 1940 84 From: Navya Shane MD PCP: Dr. Edenilson Nicholson, DO Status:ADM CHRISTINE Location: [place] [address] Assessment and Plan: Stroke Assessment/Plan Patient presenting with two episodes of transient L face/L hand numbness which have resolved. Likely due to transient ischemic attack. -start ASA 81 daily , No DAPT as ABCD socre<4 -start atorvastatin 40 daily -goal LDL<70, HBA1c <7 -CTA head/neck ???no significant stenosis -fu TTE. Please reach out if any abnormality -Recommend ???30 day cardiac event monitor on discharge to evaluate for atrial fibrillation/flutter -BP goal 120/80 -no smoking -follow up with PCP 1-2 weeks and neurology ???4-6 weeks HPI Consult Data Date of Consult: 08/14/24 HPI Narrative HPI Narrative: 84 yo??? F w PMH psoriatic arthritis, HTN, anxiety/depression, cognitive impairment presents with transient L hand/face numbness and tingling. On 08/13, awoke with numbnss in the left hand which resolved in 15 minutes. Later in the day while cooking noted tingling with L face which also resolved in 15 minutes. The last episode was at 4pm on 08/13. Went to ER for evaluation. Initial BP was 169/88. CTH negative, CTA showed no LVO or significant stenosis. MRI brain showed no significant abnormalities. Symptoms have since resolved. ???Never had prior similar episode and has not reoccurred. No AC/AP at home. ??? Currently feels back to normal. [facility] Medical History DDD (degenerative disc disease) Psoriatic arthritis Home Medications ???Medication ???Instructions ???Recorded ???Last Taken ???Type ascorbic acid (vitamin C) 500 mg 500 mg PO DAILY@0800 SUPPLEMENT 08/12/24 History tablet (Vitamin C) cholecalciferol (vitamin D3) 125 5,000 unit PO DAILY [facility] 09/06/16 History mcg (5,000 unit) capsule coenzyme Q10 100 mg capsule (Co 100 mg PO DAILY SUPPLEMENT 7 08/12/24 History Q-10) folic acid 1 mg tablet 2 mg PO DAILY SUPPLEMENT 09/07/16 08/12/24 History glutamine 500 mg capsule 500 mg PO DAILY SUPPLEMENT 7 Unknown History (L-Glutamine) lutein 20 mg capsule 20 mg PO DAILY SUPPLEMENT 09/07/16 08/12/24 History methotrexate sodium 2.5 mg tablet 12.5 mg PO LORD ARHTRITIS 09/07/16 08/08/24 History red yeast rice 600 mg capsule 600 mg PO BID SUPPLEMENT 09/07/16 08/12/24 History cyclobenzaprine 10 mg tablet 10 mg PO TID PRN PRN Back 09/11/16 Unknown Rx pain/muscle spasms #10 tabs amitriptyline 10 mg tablet 10 mg PO QHS mood 08/13/24 Unknown History donepezil 10 mg tablet 10 mg PO QHS memory 08/13/24 Unkno wn History fluorometholone 0.1 % eye 1 drp ophthalmic (eye) QODAY 08/13 Unknown History drops,suspension fluoxetine 10 mg capsule 10 mg PO DAILY depression 08/13/24 Unknown History losartan 25 mg tablet 25 mg PO DAILY blood pressure 08/02 04/28 Unknown History Allergy/AdvReac Type Severity Reaction Status Date / Time Penicillins Allergy Unknown Verified 08/13/24 18:11 meperidine HCl (From Demerol) AdvReac Intermediate Vomiting Verified 08/13/24 18:11 sertraline HCl (From Zoloft) AdvReac Intermediate Other Verified 08/13/24 18:11 acetaminophen (From AdvReac Mild Vomiting Verified 08/13/24 18:11 Darvocet-N 100) caffeine AdvReac Mild Other Verified 08/13/24 18:11 codeine AdvReac Mild Vomiting Verified 08/13/24 18:11 ephedrine AdvReac Mild Other Verified 08/13/24 18:11 propoxyphene napsylate (From AdvReac Mild Vomiting Verified 08/13/24 18:11 Darvocet-N 100) tramadol AdvReac Mild Vomiting Verified 08/13/24 18:11 ampicillin AdvReac Unknown Unknown Verified 08/13/24 18:11 griseofulvin AdvReac Unknown Unknown Verified 08/13/24 18:11 guaifenesin (From Entex [place]) AdvReac Unknown Unknown Verified 08/13/24 18:11 hydrocodone bitartrate (From AdvReac Unknown Unknown Verified 08/13/24 18:11 Vicodin) phenylephrine HCl (From AdvReac Unknown Unknown Verified 08/13/24 18:11 Entex LA) phenylpropanolamine HCl AdvReac Unknown Unknown Verified 08/13/24 18:11 (From Entex [place]) Sulfa (Sulfonamide AdvReac Unknown Unknown Verified 08/13/24 18:11 Antibiotics) Family History Father Cancer Surgical History History of bilateral knee arthroplasty History of carpal tunnel release H/O: hysterectomy Social History (Updated 08/13/24 @ 22:21 by Mary Hanley) Smoking Status: Never smoker Vital Signs Vital Signs Vital Signs: 08/13/24 17:24 08/13/24 19:24 08/13/24 21:00 Temperatu (more content not included)... Normal [facility] Magnesiumon 08-14-2024 Magnesium [Mass/Vol] 2.2 mg/dL Normal 1.5-2.2 [facility] Comment on above: Order Comment: Comme nts: [place]PO at [place] prior to lipid panel Performed By: #### L 501.9985 #### [facility] Laboratory [address] [place], [place], [address] Magnesium measurement (mass/ volume)Ordered By: Ramona Darden on 08-14-2024 Magnesium (Unsp spec) [Mass/Vol] 2.2 mg/dL 1.5-2.2 [facility] Magnetic resonance imaging r eportOrdered By: Diallo Blair on 08-14-2024 Study report [facility] Imaging Services [address] [place], [place] [address] Brain without Contrast MR#: [id number] Acct: [id number] Name: ANAYA DE LA O Cristhian Rep #: [id number] : 1940 F 84 From: America Blair MD PCP: Dr. Edenilson Nicholson, DO Status: AD M CHRISTINE Study:Brain without Contrast Date of Exam: 08/14/24 Exam# [id number] Ordering Dr: Lurdes Darden DO PROCEDURE: BRAIN WITHOUT CONTRAST 08/14/2024 REASON FOR EXAM: STROKE TECHNIQUE: Noncontrast brain MRI. Multiplanar and multisequence images were obtained. COMPARISON: CT head without contrast and CTA head and neck with contrast, 08/13/2024 FINDINGS: There is mild diffuse cerebral atrophy with concomitant ventriculomegaly. Thereare few punctate foci of abnormal periventricular and subcortical white matter signal, in both cerebral hemispheres, consistent with chronic ischemic white matter disease. There is a normal sulcal pattern and gyral configuration. There is no evidence of acute intracranial hemorrhage or infarction. The simeon-white differentiation is well preserved. There is no evidence of restricted diffusion. The basilar cisterns are normal. There are normal flow voids demonstrated in the recognizedintracranial vessels. The cerebellum and brainstem are unremarkable. The cerebellar pontine angles arenormal. The craniovertebral junction is normal. The sella and suprasellar regions are normal. The orbits and retro-orbital regions are unremarkable. The nasal septum is midline. The paranasal sinuses are clear. The mastoid air cells are clear. There is normal bone marrow signal in the skull base and calvarium. There is a sebaceous cyst in the scalp, just to the right of the vertex. MRI/Brain without Contrast IMPRESSION: 1. Mild cerebral atrophy. 2. No evidence of acute intracranial pathology. Reading Location: [place] [address] CC: Dr. Edenilson Nicholson, DO; Dr. Ramona Darden, DO ~ Medical Staff Manager: Signed [facility] Work Phone: Mean corpuscular hemoglobin (MCH) determinationOrdered By: Ramona Darden on 08-14-2024 MCH (RBC) [Entitic mass] 30.7 pg 27.0-32.0 [facility] Mean corpuscular hemoglobin concentration (MCHC) determinationOrdered By: Ramona Darden on 08-14-2024 MCHC (RBC) [Mass/Vol] 33.1 g/dL 32-36 [facility] Mean platelet volume determi nationOrdered By: Ramona Darden on 08-14-2024 Platelet mean volume (Bld) [Entitic vol] 10.7 fL 6.2-12.0 [facility] Monocyte percentageOrdered B y: Ramona Darden on 08-14-2024 Monocytes/100 WBC (Bld) 8.7 % 0-10 [facility] Neutrophil percentageOrdered By: Ramona Lee on 08-14-2024 Neutrophils/100 WBC (Bld) 63.9 % 47-70 [facility] Nucleated red blood cell per centageOrdered By: Ramona Darden on 08-14-2024 Nucleated RBC/100 WBC (Bld) [Ratio] 0 % 0-5 [facility] Phosphoruson 08-14-2024 Phosphate [Mass/Vol] 3.0 mg/dL Normal 2.7-4.5 [facility] Comment on above: Order Comment: Comme nts: NPO at [place] prior to lipid panel Performed By: #### L 501.9966 #### [facility] [place], [address] Platelet countOrdered By: Dana Darden on 08-14-2024 Platelets (Bld) [#/Vol] 200 10*3/uL 150-450 [facility] Potassium measurement (mass/ volume)Ordered By: Ramona Darden on 08-14-2024 Potassium (Unsp spec) [Mass/Vol] 3.8 mmol/L 3.3-5.1 [facility] RBC Auto (Bld) [#/Vol]Ordere d By: Ramona Darden on 08-14-2024 RBC (Bld) [#/Vol] 4.17 10*6/uL Low 4.2-5.4 [facility] Screening total cholesterol/ high density lipoprotein (HDL) cholesterol ratioOrdered By: Ramona Darden on 08-14-2024 Cholesterol.total/Chol esterol in HDL [Mass ratio] 2.83 {ratio} [facility] Serum creatinine measurement (mass/volume)Ordered By: Ramona Darden on 08-14-2024 Creatinine [Mass/Vol] 0.56 mg/dL Low 0.70-1.20 [facility] Serum globulin measurementOr dered By: Ramona Darden on 08-14-2024 Globulin (S) [Mass/Vol] 2.3 g/dL 2.2-4.2 [facility] Serum glucose measurement (m ass/volume)Ordered By: Ramona Darden on 08-14-2024 Glucose [Mass/Vol] 106 mg/dL High 70-99 [facility] Serum or plasma alanine javier otransferase (ALT) measurementOrdered By: Ramona Darden on 08-14-2024 ALT [Catalytic activity/Vol] 17 U/L <35 [facility] Serum or plasma albumin enmanuel urement (mass/volume)Ordered By: Ramona Darden on 08-14-2024 Albumin [Mass/Vol] 3.9 g/dL 3.4-4.8 [facility] Serum or plasma albumin/glob ulin mass ratioOrdered By: Ramona Darden on 08-14-2024 Albumin/Globulin [Mass ratio] 1.7 {ratio} 0.9-2.4 [facility] Serum or plasma alkaline preston sphatase measurementOrdered By: Ramona Darden on 08-14-2024 ALP [Catalytic activity/Vol] 123 U/L High 35-104 [facility] Serum or plasma calcium enmanuel urement (mass/volume)Ordered By: Ramona Darden on 08-14-2024 Calcium [Mass/Vol] 9.4 mg/dL 7.6-11.0 [facility] Serum or plasma cholesterol in HDL measurement (mass/volume)Ordered By: Ramona Darden on 08-14-2024 Cholesterol in HDL [Mass/Vol] 77 mg/dL >40 [facility] Comment on above: National Cholesterol Education Program (NCEP) guidelines:<40 mg/dL: Low HDL-cholesterol (major risk factor for CHD)>= 60 mg/dL: High HDL-cholesterol (negative risk factor for CHD)HDL-cholesterol is affected by a number of factors, e.g. smoking, exercise, hormones, sex and age. Serum or plasma cholesterol measurement (mass/volume)Ordered By: Ramona Darden on 08-14-2024 Cholesterol [Mass/Vol] 217 mg/dL High <201 [facility] Comment on above: Cholesterol level, D esirable <200 mg/dLBorderline high cholesterol 200-239 mg/dLHigh cholesterol >=240 mg/dLRecommendations of the NCEP Adult Treatment Panel for the following risk-cutoff thresholds for the [place] population. Serum or plasma urea nitroge n measurement (mass/volume)Ordered By: Ramona Darden on 08-14-2024 Urea nitrogen [Mass/Vol] 5 mg/dL 4-19 [facility] Sodium levelOrdered By: Lurdes Darden on 08-14-2024 Sodium [Moles/Vol] 140 mmol/L 133-145 [facility] TSH DL <= 0.005 mIU/L QnOrde red By: Ramona Darden on 08-14-2024 TSH Qn 1.720 uIU/mL 0.300-4.200 [facility] Thyroid Stim Hormone (TSH)on 08-14-2024 TSH 1.720 uIU/mL Normal 0.300-4.200 [facility] Comment on above: Order Comment: Comme nts: NPO at [place] prior to lipid panel Performed By: #### L 501.9985 #### [facility] Laboratory [address] [place], [place], [id number] Total proteinOrdered By: Rosa Darden on 08-14-2024 Protein [Mass/Vol] 6.2 g/dL 5.9-8.4 [facility] Triglycerides measurementOrd ered By: Ramona Darden on 08-14-2024 Triglyceride [Mass/Vol] 70 mg/dL <199 [facility] Comment on above: The drugs N-Acetylcy steine and Metamizole may falsely depress this assay. Normal range: <150 mg/dLBorderline High: 150-199 mg/dLHigh: 200-499 mg/dLVery High: >500 mg/dL White blood cell (WBC) count Ordered By: Ramona Darden on 08-14-2024 WBC (Bld) [#/Vol] 6.2 10*3/uL 4.4-11.0 [facility] Absolute lymphocyte countOrd ered By: Lissett Parikh on 08-13-2024 Lymphocytes Auto (Unsp spec) [#/Vol] 1.35 10*3/uL 0.83-4.51 [facility] Absolute neutrophil countOrd ered By: Lissett Parikh on 08-13-2024 Neutrophils (Bld) [#/Vol] 4.4 10*3/uL 2.0-7.7 [facility] Anion gap in Serum or Plasma Ordered By: Lissett Parikh on 08-13-2024 Anion gap [Moles/Vol] 11 mmol/L 5-15 [facility] Automated lymphocyte count a s percentage of total leukocytesOrdered By: Lissett Parikh on 08-13-2024 Lymphocytes/100 WBC Auto (Unsp spec) 21.3 % 19-41 [facility] BUN/creatinine ratioOrdered By: Lissett Parikh on 08-13-2024 Urea nitrogen/Creatinine [Mass ratio] 8.1 mg/mg Low 10- [facility] Basic Metabolic Profile (BMP )on 08-13-2024 BUN/CRE 8.1 RATIO Low 12-21 [facility] Comment on above: Performed By: #### L 500.2500 #### [facility] Laboratory [address] [place], [address] ECRCL 39.50 ml/min Low 50-250 [facility] Comment on above: Performed By: #### L 500.2500 #### [facility] [address] [place], [address] GAP 11 Normal 5-15 [facility] Comment on above: Performed By: #### L 500.2500 #### [facility] [address] [place], [address] Potassium [Moles/Vol] 4.1 mmol/L Normal 3.3-5.1 [facility] Comment on above: Result Comment: Hemo lysis present, Results??could be affected. ?? Performed By: #### L 500.2500 #### [facility] [address] [place], [address] Basophil percentageOrdered B y: Lissett Parikh on 08-13-2024 Basophils/100 WBC (Bld) 0.6 % 0-1 [facility] Bedside Glucoseon 08-13-2024 FINGERSTICK GLU 88 mg/dL Normal 74-106 [facility] Comment on above: Result Comment: RENZO SULMAENT OF PATIENT CARE PER NURSING PROTOCOL Performed By: #### L 501.080 #### [facility] Laboratory [address] [place], [address] Brain/Head without Contrasto n 08-13-2024 Brain/Head without Contrast [facility] Imaging Services [address] [place] [address] Brain/Head without Contrast MR#: [id number] Acct: [id number] Name: ANAYA DE LA O Cristhian Rep #: [id number] : 1940 F 84 From: Elvia Hoang nd, MD PCP: Dr. Edenilson Nicholson, DO Status: REG ER Study: Brain/Head without Contrast Date of Exam: 08/02 04/28 Exam# [id number] Ordering Dr: Lissett Parikh EXAM: BRAIN/HEAD WITHOUT CONTRAST CLINICAL HISTORY: 84 y/o F with LEFT-SIDED PARESTHESIAS, RESOLVED. COMPARISON: None. TECHNIQUE: Routine CT imaging of the head without IV contrast. Additional multiplanar reformats were obtained. Dose reduction techniques were used including intermediate exposure control (AEC),iterative reconstruction technique, and/or mA and/or KV dose adjustments based on patient's size. FINDINGS: The ventricles, sulci and cisterns are mildly prominent, compatible with patient age. There is no evidence of intracranial hemorrhage or herniation. There is no midline shift, mass effect, or extra-axial collection. Mild scattered supratentorial white matter hypodensities. The orbits, visualized paranasal sinuses and mastoids are unremarkable. No acute calvarial fracture or scalp hematoma. Small soft tissue lesion along the right cranial vertex, likely a sebaceous cyst. CT/Brain/Head without Contrast IMPRESSION: No acute intracranial finding. Reading Location: [id number] CC: Dr. Edenilson Nicholson DO; SUSAN Cervantes Medical Staff Manager: Signed Normal [facility] CBC W/Diff, Automatedon 08-02 Absolute Lymph 1.35 X10 3/uL Normal 0.83-4.51 [facility] Comment on above: Performed By: #### L 100.0100, L500.4050 #### [facility] [address] [place], [address] Absolute Neut 4.4 X10 3/uL Normal 2.0-7.7 [facility] Comment on above: Performed By: #### L 100.0100, L500.4050 #### [facility] [address] [place], [address] Basophils/100 WBC (Bld) 0.6 % Normal 0-1 [facility] Comment on above: Performed By: #### L 100.0100, L500.4050 #### [facility] [address] [place], [address] Eosinophils/100 WBC (Bld) 1.3 % Normal 0-5 [facility] Comment on above: Performed By: #### L 100.0100, L500.4050 #### [facility] Laboratory [address] [place], [address] Erythrocyte distribution width (RBC) [Ratio] 14.3 % Normal 11.6-14.6 [facility] Comment on above: Performed By: #### L 100.0100, L500.4050 #### [facility] [address] [place], [address] Hematocrit (Bld) [Volume fraction] 40.3 % Normal 37-47 [facility] Comment on above: Performed By: #### L 100.0100, L500.4050 #### [facility] [address] [place], [address] Hemoglobin (Bld) [Mass/Vol] 13.0 g/dL Normal 12.0-15.0 [facility] Comment on above: Performed By: #### L 100.0100, L500.4050 #### [facility] [address] [place], [address] IG% 0.300 Normal 0.0-0.9 [facility] Comment on above: Result Comment: IG% - Immature Granulocytes (promyelocytes, myelocytes and metamyelocytes) > 1% indicates that a LEFT SHIFT is Present. Performed By: #### L 100.0100, L500.4050 #### [facility] [address] [place], [address] Lymphocytes/100 WBC (Bld) 21.3 % Normal 19-41 [facility] Comment on above: Performed By: #### L 100.0100, L500.4050 #### [facility] [address] [place], [address] MCH (RBC) [Entitic mass] 30.5 pg Normal 27.0-32.0 [facility] Comment on above: Performed By: #### L 100.0100, L500.4050 #### [facility] [address] [place], [address] MCHC (RBC) [Mass/Vol] 32.3 g/dL Normal 32-36 [facility] Comment on above: Performed By: #### L 100.0100, L500.4050 #### [facility] [address] [place], [address] MCV (RBC) [Entitic vol] 94.6 fL Normal 81-99 [facility] Comment on above: Performed By: #### L 100.0100, L500.4050 #### [facility] [address] [place], [address] Monocytes/100 WBC (Bld) 7.1 % Normal 0-10 [facility] Comment on above: Performed By: #### L 100.0100, L500.4050 #### [facility] [address] [place], [address] Neutrophils/100 WBC (Bld) 69.4 % Normal 47-70 [facility] Comment on above: Performed By: #### L 100.0100, L500.4050 #### [facility] [address] [place], [address] Nucleated RBC (Bld) [#/Vol] 0 10*3/uL Normal 0-5 [facility] Comment on above: Performed By: #### L 100.0100, L500.4050 #### [facility] [address] [place], [address] Platelet mean volume (Bld) [Entitic vol] 10.7 fL Normal 6.2-12.0 [facility] Comment on above: Performed By: #### L 100.0100, L500.4050 #### [facility] [address] [place], [address] Platelets (Bld) [#/Vol] 200 10*3/uL Normal 150-450 [facility] Comment on above: Performed By: #### L 100.0100, L500.4050 #### [facility] [address] [place], [address] RBC (Bld) [#/Vol] 4.26 10*6/uL Normal 4.2-5.4 [facility] Comment on above: Performed By: #### L 100.0100, L500.4050 #### [facility] [address] [place], [address] RDW SD 48.3 fl High 35.1-43.9 [facility] Comment on above: Performed By: #### L 100.0100, L500.4050 #### [facility] Laboratory [address] [place], [address] WBC (Bld) [#/Vol] 6.4 10*3/uL Normal 4.4-11.0 [facility] Comment on above: Performed By: #### L 100.0100, L500.4050 #### [facility] Laboratory [address] [place], [address] CTA Head AND Neck W/ Contras ton 08-13-2024 CTA Head AND Neck W/ Contrast [facility] Imaging Services [address] [place] [address] CTA Head AND Neck W/ Contrast MR#: [id number] Acct: [id number] Name: DINESHBRANDEEEPHRAIMANAYA M Rep #: [id number] : 1940 F 84 From: Elvia Hoang nd, MD PCP: Dr. Edenilson Nicholson, DO Status: [facility] ER Study: CTA Head AND Neck W/ Contrast Date of Exam: Exam# [id number] Ordering Dr: Lissett Parikh PROCEDURE: CTA HEAD AND NECK W/ CONTRAST 08/13/2024 REASON FOR EXAM: TIA, LEFT-SIDED PARESTHESIAS TECHNIQUE: CTA imaging of the head and neck from the aortic arch to the skull vertex with out contrast and with intravenous contrast. Multiplanar and multisequence images were obtained. CONTRAST: Isovue 370 VOLUME: 100 mL One or more dose reduction techniques were used (e.g., Automated exposure control, adjustment of the mA and/or kV according to patient size, use of iterative reconstruction technique). RADIATION DOSE SUMMARY: CTDlvol: 45 mGy DLP: 600 mGycm COMPARISON: Same-day CT head. FINDINGS: See same day CT head for discussion of nonvascular findings. CTA neck: Standard three-vessel aortic arch with calcific plaque of the left subclavian artery at its origin, resulting in mild focal narrowing. The bilateral vertebral arteries are widely patent at their origins. Diminutive/hypoplastic left vertebral artery. The bilateral cervical carotid arteries are widely patent without focal narrowing or occlusion by NASCET criteria. CTA head: The bilateral carotid siphons are widely patent. The bilateral anterior, middle and posterior cerebral arteries are widely patent. No aneurysm or AVM. Major venous structures: Unremarkable. Other findings: Prior dental restorations. Severe cervical spondylosis. Moderate arthrosis of the atlantoaxial joint. CT/CTA Head AND Neck W/ Contrast IMPRESSION: 1. No large vessel occlusion, aneurysm or AVM. 2. 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 3. Severe cervical spondylosis. Reading Location: [id number] CC: Dr. Edenilson Nicholson DO; SUSAN Cervantes Medical Staff Manager: Signed Normal [facility] Carbon dioxide, total [Moles /volume] in Central venous bloodOrdered By: Lissett Parikh on 08-13-2024 CO2 [Moles/Vol] 26.3 mmol/L Normal 21.0-32.0 [facility] Comment on above: Performed By: #### L 500.2500 #### [facility] [address] [place], [address] Chloride assayOrdered By: Maryjo Parikh on 08-13-2024 Chloride [Moles/Vol] 101 mmol/L Normal 98-108 [facility] Comment on above: Performed By: #### L 500.2500 #### [facility] [address] [place], [address] Echo Completeon 08-13-2024 Echo Complete [facility] [address] [place] [address] Echo Complete 08/14/24 0820 MR#: [id number] Acct: [id number] Name: ANAYA DE LA O Rep #: [id number] : 1940 84 From: Pablo Mak MD Attending Dr: Dr. Jerome Brasher, Status: ADM CHRISTINE Ordering Dr: Ramona Darden DO Date: 08/13/24 Location: [facility] Sex: F C Admitted: 08/13/24 Reason For Study Reason For Study: TIA/Stroke Procedure This was a 2D Doppler, Color Flow transthoracic echocardiogram. Exam performed portable in patient room. Left Ventricle Normal left ventricle. Normal LV thickness. Left ventricular systolic function is normal. The LV ejection fraction is 65 %. Grade 1 diastolic dysfunction. Right Ventricle Normal right ventricle. Normal systolic function. Atria Normal left atrium. Normal right atrium. Mitral Valve There is no stenosis. Trivial mitral valve insufficiency. Tricuspid Valve Normal tricuspid valve. Mild tricuspid valve insufficiency. Aortic Valve Aortic valve is mildly calcified Aortic valve is tricuspid. There is no aortic stenosis. Mild (1+) aortic valve insufficiency. Great Vessels Aortic root dimensions is within normal limits. Pericardium/Pleural No pericardial effusion. Medication Performed a rapid injection of agitated mix of 9 cc saline and 1cc air to assess for atrial septal defect. MMode/2D Measurements Calculations LVIDd: 3.7 cm IVSd: 0.95 cm Ao root diam: 2.8 cm LVIDs: 2.0 cm LVPWd: 0.92 cm RVDd: 3.2 cm FS: 45.9 % LAV(MOD-bp): 28.4 ml LVAd ap4: 16.3 cm2 SV(MOD-sp4): 23.0 ml LAV(MOD-bp) Indexed: 19.2 ml/m2 LVLd ap4: 6.5 cm SI(MOD-sp4): 15.5 ml/m2 LAV(MOD-sp2): 35.6 ml EDV(MOD-sp4): 34.1 ml LAV(MOD-sp4): 21.5 ml EDV(sp4-el): 34.9 ml LVAs ap4: 8.0 cm2 LVLs ap4: 5.0 cm ESV(MOD-sp4): 11.1 ml ESV(sp4-el): 10.9 ml EF(MOD-sp4): 67.5 % EF(sp4-el): 68.8 % SV(sp4-el): 24.0 ml LA A4 area: 10.7 cm2 LA dimension(2D): 2.7 cm RA A4 area: 7.2 cm2 TAPSE: 2.1 cm Time Measurements MV dec time: 0.31 sec Doppler Measurements Calculations MV E max tracy: 69.3 cm/sec Lat Peak E' Tracy: 7.4 cm/sec Med Peak E' Tracy: 6.5 cm/sec MV A max tracy: 90.3 cm/sec E/E' lat: 9.4 E/E' med: 10.6 MV E/A: 0.77 Ao V2 max: 154.2 cm/sec LV V1 max: 111.2 cm/sec MV dec slope: 226.3 cm/sec2 Ao max P.7 mmHg LV V1 max P.9 mmHg Ao V2 mean: 103.4 cm/sec LV V1 mean P.4 mmHg Ao mean P.0 mmHg LV V1 mean: 71.4 cm/sec Ao V2 VTI: 33.9 cm LV V1 VTI: 27.3 cm AV (velocity ratio): 0.81 PA V2 max: 93.4 cm/sec PI end-d tracy: 98.3 cm/sec TR max tracy: 259.7 cm/sec TR max P.0 mmHg ECHO/Echo Complete Interpretation Summary The LV ejection fraction is 65 %. Left ventricular systolic function is normal. Mild (1+) aortic valve insufficiency. Grade 1 diastolic dysfunction Trivial mitral valve insufficiency. Ordering Physician: Ramona Darden Referring Physician: Edenilson Nicholson Performed By: Sharon Selby, DARLINE, RVT 08/14/24 1524 Date Pablo Mak MD CC: Dr. Julius Pete, DO; Dr. Jerome Brasher, DO; Dr. Edenilson Nicholson, DO; Dr. Ramona Darden, DO Date Dictated: 08/14/24819 Date Transcribed: 08/14/241523 Medical Staff Manager: Signed Normal [facility] Emergency Department Summary on 08-13-2024 Emergency Department Summary [facility] Medical Records Department [address] [place] [id number] Emergency Department Summary 08/13/24 MR#: [id number] Acct: [id number] Name: ANAYA DE LA O Rep #: [id number] : 1940 84 From: Lissett DAVIS PCP: Dr. Edenilson Nicholson DO Status:DIS CHRISTINE Location: [place] [address] HPI History of Present Illness Chief Complaint: Neuro S/Sx Narrative Narrative: Patient presenting today due to left-sided paresthesias to the left side of her face and left upper extremity that started around 4:30 PM as she was cooking dinner. She reports that the symptoms lasted about 30 minutes, she called her PCPs office and they recommended that she come into the emergency department to be evaluated. She denies any history of stroke or TIA. She has a PMH of HTN and psoriatic arthritis. She reports that her symptoms have completely resolved, she is currently feeling well. She denies any recent illness, fevers, chills, nausea, and vomiting. [facility] Medical History DDD (degenerative disc disease) Psoriatic arthritis Home Medications ???Medication ???Instructions ???Recorded ???Last Taken ???Type ascorbic acid (vitamin C) 500 mg 500 mg PO DAILY@0800 SUPPLEMENT 08/12/24 History tablet (Vitamin C) cholecalciferol (vitamin D3) 125 5,000 unit PO DAILY [facility] 09/06/16 History mcg (5,000 unit) capsule coenzyme Q10 100 mg capsule (Co 100 mg PO DAILY SUPPLEMENT 7 08/12/24 History Q-10) folic acid 1 mg tablet 2 mg PO DAILY SUPPLEMENT 09/07/16 08/12/24 History glutamine 500 mg capsule 500 mg PO DAILY SUPPLEMENT 7 Unknown History (L-Glutamine) lutein 20 mg capsule 20 mg PO DAILY SUPPLEMENT 09/07/16 08/12/24 History methotrexate sodium 2.5 mg tablet 12.5 mg PO LORD ARHTRITIS 09/07/16 08/08/24 History red yeast rice 600 mg capsule 600 mg PO BID SUPPLEMENT 09/07/16 08/12/24 History cyclobenzaprine 10 mg tablet 10 mg PO TID PRN PRN Back 09/11/16 Unknown Rx pain/muscle spasms #10 tabs amitriptyline 10 mg tablet 10 mg PO QHS mood 08/13/24 Unknown History donepezil 10 mg tablet 10 mg PO QHS memory 08/13/24 Unkno wn History fluorometholone 0.1 % eye 1 drp ophthalmic (eye) QODAY 08/13 Unknown History drops,suspension fluoxetine 10 mg capsule 10 mg PO DAILY depression 08/13/24 Unknown History losartan 25 mg tablet 25 mg PO DAILY blood pressure 08/02 04/28 Unknown History aspirin 81 mg tablet 81 mg PO DAILY #30 tabs 08/14/24 U nknown Rx atorvastatin 40 mg tablet 40 mg PO QHS #30 tabs 08/14/24 Unk nown Rx Allergy/AdvReac Type Severity Reaction Status Date / Time Penicillins Allergy Unknown Verified 08/13/24 18:11 meperidine HCl (From Demerol) AdvReac Intermediate Vomiting Verified 08/13/24 18:11 sertraline HCl (From Zoloft) AdvReac Intermediate Other Verified 08/13/24 18:11 acetaminophen (From AdvReac Mild Vomiting Verified 08/13/24 18:11 Darvocet-N 100) caffeine AdvReac Mild Other Verified 08/13/24 18:11 codeine AdvReac Mild Vomiting Verified 08/13/24 18:11 ephedrine AdvReac Mild Other Verified 08/13/24 18:11 propoxyphene napsylate (From AdvReac Mild Vomiting Verified 08/13/24 18:11 Darvocet-N 100) tramadol AdvReac Mild Vomiting Verified 08/13/24 18:11 ampicillin AdvReac Unknown Unknown Verified 08/13/24 18:11 griseofulvin AdvReac Unknown Unknown Verified 08/13/24 18:11 guaifenesin (From Entex LA) AdvReac Unknown Unknown Verified 08/13/24 18:11 hydrocodone bitartrate (From AdvReac Unknown Unknown Verified 08/13/24 18:11 Vicodin) phenylephrine HCl (From AdvReac Unknown Unknown Verified 08/13/24 18:11 Entex LA) phenylpropanolamine HCl AdvReac Unknown Unknown Verified 08/13/24 18:11 (From Entex LA) Sulfa (Sulfonamide AdvReac Unknown Unknown Verified 08/13/24 18:11 Antibiotics) Family History Father Cancer Surgical History History of bilateral knee arthroplasty History of carpal tunnel release H/O: hysterectomy Social History (Updated 08/13/24 @ 22:21 by Mary Hanley) Smoking Status: Never smoker ROS ROS ED Constitutional Constitutional ED: Denies chills or fever(s) Cardiovascular Cardiovascular: Denies chest pain Respiratory/Chest Respiratory/Chest: Denies dyspnea Gastrointestinal Gastrointestinal: Denies abdominal pain, nausea or vomiting Genitourinary Genitourinary ED: Denies dysuria, hematuria or urinary frequency Musculoskeletal Musculoskeletal: Denies arthralgias or myalgias Integumentary Denies rash Neurologic Neurologic: Reports paresthesias; Denies headache(s) or weakness EXAM Physical Exam Const Vital Signs: 08/13/24 17: (more content not included)... Normal [facility] Eosinophil percentageOrdered By: Lissett Parikh on 08-13-2024 Eosinophils/100 WBC (Bld) 1.3 % 0-5 [facility] Erythrocyte distribution wid th ratioOrdered By: Lissett Parikh on 08-13-2024 Erythrocyte distribution width (RBC) [Ratio] 14.3 % 11.6-14.6 [facility] Erythrocyte distribution wid th standard deviationOrdered By: Lissett Parikh on 08-13-2024 Erythrocyte distribution width (RBC) [Ratio] 48.3 fl High 35.1-43.9 [facility] Glomerular filtration rate ( GFR) estimation/1.73 sq m using serum, plasma, or whole bOrdered By: Lissett Parikh on 08-13-2024 GFR/1.73 sq M.predicted among non-blacks MDRD (S/P/Bld) [Vol rate/Area] 88 mL/min/{1.73_m2} Normal >60 [facility] Comment on above: mL/min/1.73m2 CKD-EP I Creatinine Equation (2020) Result Comment: mL/m in/1.73m2 CKD-EPI Creatinine Equation (2020) Performed By: #### L 500.2500 #### [facility] [address] [facility] [place], [address] [facility] deOrdered By: Julius Pete on 08-13-2024 Glucose [Mass/Vol] 88 mg/dL 74-106 [facility] Comment on above: MANAGEMENT OF PATIEN T CARE PER NURSING PROTOCOL H AND P Exam - Hospitaliston 08-13-2024 H&P Exam - Hospitalist [facility] Medical Records Department [address] [place] [address] H P Exam - Hospitalist 08/13/24 2206 MR#: [id number] Acct: [id number] Name: ANAYA DE LA O Rep #: [id number] : 1940 84 From: Darren DAVIS PCP: Dr. Edenilson Nicholson, DO Status:ADM CHRISTINE Location: [place] [address] HPI - General General Date of Admission: 08/13/24 Date of Service: 08/13/24 Chief Complaint: left hand and face numbness and tingling HPI Narrative ANAYA DE LA O, is a 84 F with a pmhx of psoriatic arthritis, HTN, anx/dep, and underlying memory issues who presents to the ER with left hand and face numbness and tingling. Initially she woke up with symptoms of numbness and tingling in the left hand. Then later she was cooking and noticed the symptoms again in her hand and then numbness and tingling in the left side of her face. She thinks these lasted for seconds to minutes. This occurred at approximately 1636. She was brought to the ER and found to be HTN with BP 169/88,a CT brain negative for acute process, and CTA head and neck without large vessel occlusions, mild narrowing of the L subclavian artery. Her NIH was 0. Her symptoms are currently completely resolved. She will be kept overnight for TIA workup. [facility] Medical History (Updated 08/13/24 @ 22:14 by Darren DAVIS, PA) DDD (degenerative disc disease) Psoriatic arthritis Home Medications ???Medication ???Instructions ???Recorded ???Last Taken ???Type ascorbic acid (vitamin C) 500 mg 500 mg PO DAILY@0800 SUPPLEMENT 08/12/24 History tablet (Vitamin C) cholecalciferol (vitamin D3) 125 5,000 unit PO DAILY [facility] 09/06/16 History mcg (5,000 unit) capsule coenzyme Q10 100 mg capsule (Co 100 mg PO DAILY SUPPLEMENT 7 08/12/24 History Q-10) folic acid 1 mg tablet 2 mg PO DAILY SUPPLEMENT 09/07/16 08/12/24 History glutamine 500 mg capsule 500 mg PO DAILY SUPPLEMENT 7 Unknown History (L-Glutamine) lecithin, soy 400 mg capsule 400 mg PO DAILY SUPPLEMENT 7 08/12/24 History lutein 20 mg capsule 20 mg PO DAILY SUPPLEMENT 09/07/16 08/12/24 History methotrexate sodium 2.5 mg tablet 12.5 mg PO LORD ARHTRITIS 09/07/16 08/08/24 History red yeast rice 600 mg capsule 600 mg PO BID SUPPLEMENT 09/07/16 08/12/24 History cyclobenzaprine 10 mg tablet 10 mg PO TID PRN PRN Back 09/11/16 Unknown Rx pain/muscle spasms #10 tabs amitriptyline 10 mg tablet 10 mg PO QHS 08/13/24 Unknown Hist ory donepezil 10 mg tablet 10 mg PO QHS 08/13/24 Unknown Hist ory fluorometholone 0.1 % eye 1 drp ophthalmic (eye) QODAY 08/13 Unknown History drops,suspension fluoxetine 10 mg capsule 10 mg PO DAILY 08/13/24 Unknown Hi story losartan 25 mg tablet 25 mg PO DAILY 08/13/24 Unknown Hi story Allergy/AdvReac Type Severity Reaction Status Date / Time Penicillins Allergy Unknown Verified 08/13/24 18:11 meperidine HCl (From Demerol) AdvReac Intermediate Vomiting Verified 08/13/24 18:11 sertraline HCl (From Zoloft) AdvReac Intermediate Other Verified 08/13/24 18:11 acetaminophen (From AdvReac Mild Vomiting Verified 08/13/24 18:11 Darvocet-N 100) caffeine AdvReac Mild Other Verified 08/13/24 18:11 codeine AdvReac Mild Vomiting Verified 08/13/24 18:11 ephedrine AdvReac Mild Other Verified 08/13/24 18:11 propoxyphene napsylate (From AdvReac Mild Vomiting Verified 08/13/24 18:11 Darvocet-N 100) tramadol AdvReac Mild Vomiting Verified 08/13/24 18:11 ampicillin AdvReac Unknown Unknown Verified 08/13/24 18:11 griseofulvin AdvReac Unknown Unknown Verified 08/13/24 18:11 guaifenesin (From Entex LA) AdvReac Unknown Unknown Verified 08/13/24 18:11 hydrocodone bitartrate (From AdvReac Unknown Unknown Verified 08/13/24 18:11 Vicodin) phenylephrine HCl (From AdvReac Unknown Unknown Verified 08/13/24 18:11 Entex LA) phenylpropanolamine HCl AdvReac Unknown Unknown Verified 08/13/24 18:11 (From Entex LA) Sulfa (Sulfonamide AdvReac Unknown Unknown Verified 08/13/24 18:11 Antibiotics) Family History Father Cancer Surgical History (Updated 08/13/24 @ 22:14 by SUSAN Meo) History of bilateral knee arthroplasty History of carpal tunnel release H/O: hysterectomy Social History Smoking Status: Never smoker ROS Constitutional Constitutional: Denies chills, fatigue or fever(s) Eyes Eyes: Denies blurry vision ENT HEENT: Denies abnormal hearing, nasal congestion or sore throat Cardiovascular Cardiovascular: Denies chest pain or edema Respiratory/Chest Respiratory/Chest: Denies cough or dyspnea Gastrointestinal Gastrointestinal: Denies abdominal pain, diarrhea or vomiting Genitourinary Genito (more content not included)... Normal [facility] Hematocrit Auto (Bld) [Volum e fraction]Ordered By: Lissett Parikh on 08-13-2024 Hematocrit (Bld) [Volume fraction] 40.3 % 37-47 [facility] Hemoglobin A1con 08-13-2024 HbA1c (Bld) [Mass fraction] 5.7 % Normal <=5.6 [facility] Comment on above: Result Comment: Norm al < 5.7 % Prediabetic 5.7 - 6.4 % Diabetic >or= 6.5 % Please note range changes. Performed By: #### L 501.9985 #### [facility] [address] [place], [place] [address]all [facility] [place], [address] Hemoglobin A1c percentageOrd ered By: Ramona Darden on 08-13-2024 HbA1c (Bld) [Mass fraction] 5.7 % <5.7 [facility] Comment on above: Normal < 5.7 % Predi abetic 5.7 - 6.4 % Diabetic >or= 6.5 % Please note range changes. Hemoglobin measurementOrdere d By: Lissett Parikh on 08-13-2024 Hemoglobin (Bld) [Mass/Vol] 13.0 g/dL 12.0-15.0 [facility] Immature granulocytes/100 WB C Auto (Bld)Ordered By: Lissett Parikh on 08-13-2024 Immature granulocytes/100 WBC (Bld) 0.300 % 0.0-0.9 [facility] Comment on above: IG% - Immature Granu locytes (promyelocytes, myelocytes and metamyelocytes) > 1% indicates that a LEFT SHIFT is Present. MCV (mean corpuscular volume ) determinationOrdered By: Lissett Parikh on 08-13-2024 MCV (RBC) [Entitic vol] 94.6 fL 81-99 [facility] Mean corpuscular hemoglobin (MCH) determinationOrdered By: Lissett Parikh on 08-13-2024 MCH (RBC) [Entitic mass] 30.5 pg 27.0-32.0 [facility] Mean corpuscular hemoglobin concentration (MCHC) determinationOrdered By: Lissett Parikh on 08-13-2024 MCHC (RBC) [Mass/Vol] 32.3 g/dL 32-36 [facility] Mean platelet volume determi nationOrdered By: Lissett Parikh on 08-13-2024 Platelet mean volume (Bld) [Entitic vol] 10.7 fL 6.2-12.0 [facility] Monocyte percentageOrdered B y: Lissett Parikh on 08-13-2024 Monocytes/100 WBC (Bld) 7.1 % 0-10 [facility] Neutrophil percentageOrdered By: Lissett Parikh on 08-13-2024 Neutrophils/100 WBC (Bld) 69.4 % 47-70 [facility] Nucleated red blood cell per centageOrdered By: Lissett Parikh on 08-13-2024 Nucleated RBC/100 WBC (Bld) [Ratio] 0 % 0-5 [facility] Platelet countOrdered By: Maryjo Parikh on 08-13-2024 Platelets (Bld) [#/Vol] 200 10*3/uL 150-450 [facility] Potassium measurement (mass/ volume)Ordered By: Lissett Parikh on 08-13-2024 Potassium (Unsp spec) [Mass/Vol] 4.1 mmol/L 3.3-5.1 [facility] Comment on above: Hemolysis present, R esults could be affected. RBC Auto (Bld) [#/Vol]Ordere d By: Lissett Parikh on 08-13-2024 RBC (Bld) [#/Vol] 4.26 10*6/uL 4.2-5.4 [facility] Serum creatinine measurement (mass/volume)Ordered By: Lissett Parikh on 08-13-2024 Creatinine [Mass/Vol] 0.62 mg/dL Low 0.70-1.20 [facility] Comment on above: Performed By: #### L 500.2500 #### [facility] [address] [place], [address] Serum glucose measurement (m ass/volume)Ordered By: Lissett Parikh on 08-13-2024 Glucose [Mass/Vol] 99 mg/dL Normal 70-99 [facility] Comment on above: Performed By: #### L 500.2500 #### [facility] [address] [place], [address] Serum or plasma calcium enmanuel urement (mass/volume)Ordered By: Lissett Parikh on 08-13-2024 Calcium [Mass/Vol] 9.5 mg/dL Normal 7.6-11.0 [facility] Comment on above: Performed By: #### L 500.2500 #### [facility] [address] [place], [address] Serum or plasma urea nitroge n measurement (mass/volume)Ordered By: Lissett Parikh on 08-13-2024 Urea nitrogen [Mass/Vol] 5 mg/dL Normal 4-19 [facility] Comment on above: Performed By: #### L 500.2500 #### [facility] [address] [place], [address] Sodium levelOrdered By: Jim Parikh on 08-13-2024 Sodium [Moles/Vol] 138 mmol/L Normal 133-145 [facility] Comment on above: Performed By: #### L 500.2500 #### [facility] [address] [place], [address] White blood cell (WBC) count Ordered By: Lissett Parikh on 08-13-2024 WBC (Bld) [#/Vol] 6.4 10*3/uL 4.4-11.0 [facility] CNOVon 08-08-2024 CNOV Office Visit (UCWSTR ) -- ANAYA DE LA O ([id number]) 1940 F Date Time Provider Department 08/08/24 2:15 PM AMERICA MENDEZ [facility] During your visit today, we recorded the following information about you: Temperature Pulse Respiration Blood pressure 97.7 degrees 57/minute 19/minute 140/72 Weight 54.5 kg America Mendez APRN.IS ARCHITECT 08/08/2024 2:18 PM Signed I feel that your presentation today is most consistent with some sort of an insect bite or sting. I recommend that you use your home Claritin for symptomatic relief. I do suspect that symptoms should resolve over the next several days. Please follow-up with your family doctor if symptoms are not improving. America Mendez APRN.CNP 08/08/2024 2:21 PM Signed This note was created using VocoMDriter. Subjective Anaya De La O is a 84 year old female. HPI [...] PCP if symptoms not improving America Mendez APRN.IS ARCHITECT Allergies As of Date: 08/08/2024 Noted Allergy [...] Date Reviewed: 08/08/2024 Reviewed by: America Mendez APRN.IS ARCHITECT - Fully Assessed Reason for Visit: Derm [...] Meds Comments (more content not included)... Normal [facility] 08-08-2024 [facility] Telephone (AYAZWS) -- ANAYA DE LA O ([id number]) 1940 F Date Time Provider Department 08/08/24 [facility] During your visit today, we recorded the following information about you: Nell Barnett, ROBERT 08/08/2024 12:02 PM Signed Pt called in [...] MS Does not take Naprosyn or Ibuprofen [facility] -May 27, 2019 Patient currently taking [...] pain [R10.32] (more content not included)... Normal [facility] Bacteria Ur Culton 5 Bacteria identified Cx Nom (U) ORGANISM ID: 1 10,000 -<50,000 CFU/ml Normal urogenital ji Normal [facility] Comment on above: Performed By: #### 6 30-4 ####[facility] LAB[facility] [id number] [address] [place] CNOVon 08-04-2024 CNOV Office Visit (UCWSTR ) -- ANAYA DE LA O ([id number]) 1940 F Date Time Provider Department 08/04/24 4:15 PM KYM LEWIS [facility] During your visit today, we recorded the following information about you: Temperature Pulse Respiration Blood pressure 97.7 degrees 64/minute 16/minute 102/62 Weight 55.6 kg Kym Lewis, SUSAN 08/04/2024 4:02 PM Signed [facility] Subjective Anaya De La O is a 84 year old female. Patient [...] 1-2 days with culture results. Recording using BrightEdge software for draft documentation of the visit was discussed with the patient/authorized sales representative printing supplies; all questions welcomed and answered. Patient/authorized sales representative printing supplies agreed to proceed History and Record Review [...] Diagnosis:Urinary frequency [R35.0] Order(s):UA DIP, URINE (POC) [[id number]] Order #: [id number]. #:[id number] 7-LAB BACTERIAL CULTURE, URINE [SQURCUL] Order #: [id number]. #:[id number] Prescriptions as of 08/04/2024 - losartan (COZAAR) [...] mouth arturo (more content not included)... Normal [facility] UA DIP, URINE (POC)on 2024 BILIRUBIN UA (POCT) Negative Negative [facility] CLARITY UA (POCT) Clear [facility] COLOR UA (POCT) Yellow [facility] GLUCOSE UA (POCT) Negative Negative mg/dL [facility] Hemoglobin Ql (U) Negative Negative [facility] KETONE UA (POCT) Negative Negative mg/dL [facility] LEUKOCYTES UA (POCT) Negative Negative [facility] NITRITE UA (POCT) Negative Negative [facility] PH UA (POCT) 7 4.5 - 8.0 [facility] Protein Ql (U) Negative Negative mg/dL [facility] SPECIFIC GRAVITY UA (POCT) 1.01 1.005 - 1.030 [facility] UROBILINOGEN UA (POCT) 0.2 Jacqueline l E.U./dL [facility] Location:[facility], [address], [place], [address] [facility] POINT OF CARE [facility] ANAYA DE LA O ([id number]) 1940 F Date Time Provider Department 08/03/24 [...] via telephone once injection order placed. Mary Keith, ENGINE HEAD REPAIRER.IS ARCHITECT 08/03/2024 2:03 PM Signed Injection order signed off Payal Godoy RN 08/03/2024 2:30 PM Signed Informed patient via telephone of Dr. Romero's review and recommendations. Patient verbalized understanding and requested that the office call back and leave same spiel on her voicemail for her spouse to review. Voicemail left per request. Patient to contact office if/when ready to schedule injection procedure. Payal Godoy RN 08/13/2024 11:24 AM Signed Patient's spouse contacted Pain Management with voicemail on 08/13/2024 at 1118 requesting to schedule injection procedure. Patient's spouse can be reached at [phone]. Payal Godoy RN 08/14/2024 9:04 AM Signed Contacted patient's spouse via telephone. Patient is currently hospitalized for r/o stroke. Patient's spouse to contact office when patient discharged to review medication list (potential need for anticoagulation). Patient's spouse verbalized understanding and voiced no additional questions/concerns. Allergies As of Date: 08/03/2024 Noted Allergy [...] [M51.372] Order(s):INJ TRANSFORAMINAL EPID ANES/STER LS SINGL [02795DMA] Order #: [id number] Prescriptions as of 08/14/2024 - losartan (COZAAR) 25 mg tablet Take [...] MS Does not take Naprosyn or Ibuprofen [facility] -May 27, 2019 Patient currently taking her prescription medications as prescriped. Esperanza Singleton RN 2019 Pt. stating has not been taking polyethylene glycol. Shonna Cervantes RN. Problem List As Of Date 08/03/2024 Noted Resolved Other disorders of synovium, tendon, and bursa(*01/08/2005 05/30/2015 Acute left-sided low back pain without sciatica*02/08/2005 Ganglion of joint [M67.40] 07/16/2005 09/19/2016 Abdominal pain, righ (more content not included)... Normal [facility] MR Lumbar spine WO contrasto n 07-29-2024 IMPRESSION: 1. Scoliosis and spondylosis. 2. Significant lumbar central canal narrowing at L3-4 and L4-5. 3. Additional foraminal disease detailed level by level. COUNTING REFERENCE: Inferior lumbar disc taken as L5-S1. Structural anomalies: None. Medical Staff Manager: PSCB Transcribe Date/Time: Jul 29 2024 10:31A Dictated by : АННА WOODS MD This examination was interpreted and the report reviewed and electronically signed by: АННА WOODS MD on Jul 29 2024 10:34AM [facility] DIVISION OF RADIOLOGY * * *Final Report* * * DATE OF EXAM: Jul 29 2024 8:45AM [facility] 0303 - MRI LUMBAR SPINE WO [...] right foramina narrowing. DIVISION OF RADIOLOGY Provider, [facility] - 07/29/2024 * * *Final Report* * * DATE OF EXAM: Jul 29 2024 8:45AM [facility] 0303 - MRI LUMBAR SPINE WO [...] disc taken as L5-S1. Structural anomalies: None. Medical Staff Manager: JAIME Transcribe Date/Time: Jul 29 2024 10:31A Dictated by : АННА WOODS MD This examination was interpreted and the report reviewed and electronically signed by: АННА WOODS MD on Jul 29 2024 10:34AM EST [facility] Radiology Study observation (narrative) [facility] MR Lumbar spine WO contrastO rdered By: Ccf Provider on 07-29-2024 [facility] MRI LUMBAR SPINE WO IVCONon 07-29-2024 [...] disc taken as L5-S1. Structural anomalies: None. Medical Staff Manager: JAIME Transcribe Date/Time: Jul 29 2024 10:31A Dictated by : АННА WOODS MD This examination was interpreted and the report reviewed and electronically signed by: АННА WOODS MD on Jul 29 2024 10:34AM EST [id number] Normal [facility] CNOVon 07-23-2024 CNOV Office Visit (PNMDNA ) -- ANAYA DE LA O ([id number]) 1940 F Date Time Provider Department 07/23/24 2:15 PM MARY KEITH PNMDNA During your visit today, we recorded the following information about you: Pulse Weight 52/minute 55.4 kg Mary Keith, ENGINE HEAD REPAIRER.IS ARCHITECT 07/23/2024 3:13 PM Signed [facility] Date: July 23, 2024 - 2:20 PM Anaya De La O is seen in consultation requested by Dr. Angeline Ray for an opinion regarding chronic lower back pain. My final recommendations will be communicated back to the requesting physician by way of shared medical record or via US mail. Chief Complaint: back Subjective Anaya De La O, is a 84 year old female who [...] She completed 1 session on 04/06/24 at [facility] in [place]. Spinal Injections: She has not gotten prior [...] Knee r (more content not included)... Normal [facility] CNOVon 06-30-2024 CNOV Office Visit (UCWSTR ) -- ANAYA DE LA O ([id number]) 1940 F Date Time Provider Department 06/30/24 4:00 PM LANI ARNDT WSTR During your visit today, we recorded the following information about you: Temperature Pulse Respiration Blood pressure 98.9 degrees 66/minute 16/minute 112/68 Weight 55.5 kg Lani Arndt PA-C 06/30/2024 4:47 PM Signed This note was created using [employer]. Subjective Anaya Montielbrandeeephraim is a 84 year old female. Patient [...] provided with contact information for Dr. Margaret Crane and strongly encouraged to contact his office [...] PA-C 06/30/2024 4:[address] MARGARET CRANE [phone] Allergies As of Date: 06/30/2024 Noted Allergy [...] (HYDROCODONE-ACETAMINOPHE* 07/07/19 (more content not included)... Normal [facility] XR ANKLE 3V AP/LAT/OBL RTon 06-30-2024 [...] No radiographic evidence of acute osseous injury. Medical Staff Manager: JAIME Transcribe Date/Time: Jun 30 2024 4:14P Dictated by : RAUL MUNSON MD This examination was interpreted and the report reviewed and electronically signed by: RAUL MUNSON MD on Jun 30 2024 4:15PM EST [id number] Normal [facility] XR Ankle - right AP and Late ral and obliqueon 06-30-2024 Radiology Study observation (narrative) [facility] IMPRESSION: Lateral soft tissue swelling. No radiographic evidence of acute osseous injury. Medical Staff Manager: JAIME Transcribe Date/Time: Jun 30 2024 4:14P [...] mortise appear intact. DIVISION OF RADIOLOGY Provider, [facility] - 06/30/2024 * * *Final Report* * [...] No radiographic evidence of acute osseous injury. Medical Staff Manager: [facility] Transcribe Date/Time: Jun 30 2024 4:14P Dictated by : RAUL MUNSON MD This examination was interpreted and the report reviewed and electronically signed by: RAUL MUNSON MD on Jun 30 2024 4:15PM EST [facility] XR Ankle - right AP and Late ral and obliqueOrdered By: Ccf Provider on 06-30-2024 [facility] Absolute lymphocyte countOrd ered By: Dina Olea on 06-26-2024 Lymphocytes Auto (Unsp spec) [#/Vol] 2.05 10*3/uL 0.83-4.51 [facility] Absolute neutrophil countOrd ered By: Dina Olea on 06-26-2024 Neutrophils (Bld) [#/Vol] 3.0 10*3/uL 2.0-7.7 [facility] Anion gap in Serum or Plasma Ordered By: Dina Olea on 06-26-2024 Anion gap [Moles/Vol] 12 mmol/L 5- [facility] Automated lymphocyte count a s percentage of total leukocytesOrdered By: Dina Olea on 06-26-2024 Lymphocytes/100 WBC Auto (Unsp spec) 34.0 % - [facility] BUN/creatinine ratioOrdered By: Dinacarlos manuel Olea on 06-26-2024 Urea nitrogen/Creatinine [Mass ratio] 19.6 mg/mg 10-20 [facility] Basophil percentageOrdered B y: Dina Olea on 06-26-2024 Basophils/100 WBC (Bld) 0.7 % 0-1 [facility] Bilirubin, totalOrdered By: Dina Olea on 06-26-2024 Bilirubin [Mass/Vol] 0.35 mg/dL 0.00-1.30 [facility] CBC W/Diff, Automatedon 06-03 Absolute Lymph 2.05 X10 3/uL Normal 0.83-4.51 [facility] Comment on above: Performed By: #### L 100.0100, L500.4050 #### [facility] [address] [place], [address] Absolute Neut 3.0 X10 3/uL Normal 2.0-7.7 [facility] Comment on above: Performed By: #### L 100.0100, L500.4050 #### [facility] [address] [place], [address] Basophils/100 WBC (Bld) 0.7 % Normal 0-1 [facility] Comment on above: Performed By: #### L 100.0100, L500.4050 #### [facility] [address], [address] Eosinophils/100 WBC (Bld) 2.8 % Normal 0-5 [facility] Comment on above: Performed By: #### L 100.0100, L500.4050 #### [facility] [address] [place], [address] Erythrocyte distribution width (RBC) [Ratio] 15.2 % High 11.6-14.6 [facility] Comment on above: Performed By: #### L 100.0100, L500.4050 #### [facility] [address] [place], [address] Hematocrit (Bld) [Volume fraction] 38.1 % Normal 37-47 [facility] Comment on above: Performed By: #### L 100.0100, L500.4050 #### [facility] [address] [place], [address] Hemoglobin (Bld) [Mass/Vol] 12.6 g/dL Normal 12.0-15.0 [facility] Comment on above: Performed By: #### L 100.0100, L500.4050 #### [facility] [address] [place], [address] IG% 1.000 High 0.0-0.9 [facility] Comment on above: Result Comment: IG% - Immature Granulocytes (promyelocytes, myelocytes and metamyelocytes) > 1% indicates that a LEFT SHIFT is Present. Performed By: #### L 100.0100, L500.4050 #### [facility] [address] [place], [address] Lymphocytes/100 WBC (Bld) 34.0 % Normal 19-41 [facility] Comment on above: Performed By: #### L 100.0100, L500.4050 #### [facility] [address] [place], [address] MCH (RBC) [Entitic mass] 31.5 pg Normal 27.0-32.0 [facility] Comment on above: Performed By: #### L 100.0100, L500.4050 #### [facility] [address] [place], [address] MCHC (RBC) [Mass/Vol] 33.1 g/dL Normal 32-36 [facility] Comment on above: Performed By: #### L 100.0100, L500.4050 #### [facility] [address] [place], [address] MCV (RBC) [Entitic vol] 95.3 fL Normal 81-99 [facility] Comment on above: Performed By: #### L 100.0100, L500.4050 #### [facility] [address] [place], [address] Monocytes/100 WBC (Bld) 11.6 % High 0-10 [facility] Comment on above: Performed By: #### L 100.0100, L500.4050 #### [facility] [address] [place], [address] Neutrophils/100 WBC (Bld) 49.9 % Normal 47-70 [facility] Comment on above: Performed By: #### L 100.0100, L500.4050 #### [facility] [address] [place], [address] Nucleated RBC (Bld) [#/Vol] 0 10*3/uL Normal 0-5 [facility] Comment on above: Performed By: #### L 100.0100, L500.4050 #### [facility] [address] [place], [address] Platelet mean volume (Bld) [Entitic vol] 11.3 fL Normal 6.2-12.0 [facility] Comment on above: Performed By: #### L 100.0100, L500.4050 #### [facility] [address] [place], [address] Platelets (Bld) [#/Vol] 251 10*3/uL Normal 150-450 [facility] Comment on above: Performed By: #### L 100.0100, L500.4050 #### [facility] [address] [place], [address] RBC (Bld) [#/Vol] 4.00 10*6/uL Low 4.2-5.4 [facility] Comment on above: Performed By: #### L 100.0100, L500.4050 #### [facility] [address] [place], [address] RDW SD 52.2 fl High 35.1-43.9 [facility] Comment on above: Performed By: #### L 100.0100, L500.4050 #### [facility] [address] [place], [address] WBC (Bld) [#/Vol] 6.0 10*3/uL Normal 4.4-11.0 [facility] Comment on above: Performed By: #### L 100.0100, L500.4050 #### [facility] [address] [place], [address] Carbon dioxide, total [Moles /volume] in Central venous bloodOrdered By: Dina Olea on 06-26-2024 CO2 [Moles/Vol] 25.4 mmol/L 21.0-32.0 [facility] Chloride assayOrdered By: Susan Olea on 06-26-2024 Chloride [Moles/Vol] 102 mmol/L 98-108 [facility] Comprehensive Metabolic Prof ilon 06-26-2024 Albumin [Mass/Vol] 3.1 g/dL Low 3.4-4.8 [facility] Comment on above: Performed By: #### L 100.0100, L500.4050 #### [facility] [address] [place], [address] Albumin/Globulin [Mass ratio] 1.0 {ratio} Normal 0.9-2.4 [facility] Comment on above: Performed By: #### L 100.0100, L500.4050 #### [facility] [address] [place], [address] ALK PHOS 119 U/L High 35-104 [facility] Comment on above: Performed By: #### L 100.0100, L500.4050 #### [facility] [address] [place], [address] ALT [Catalytic activity/Vol] 28 U/L Normal <=34 [facility] Comment on above: Performed By: #### L 100.0100, L500.4050 #### [facility] [address] [place], [address] AST [Catalytic activity/Vol] 32 U/L Normal <=31 [facility] Comment on above: Performed By: #### L 100.0100, L500.4050 #### [facility] [address] [place], [address] Bilirubin [Mass/Vol] 0.35 mg/dL Normal 0.00-1.30 [facility] Comment on above: Performed By: #### L 100.0100, L500.4050 #### [facility] [address] [place], [address] BUN/CRE 19.6 RATIO Normal 10-20 [facility] Comment on above: Performed By: #### L 100.0100, L500.4050 #### [facility] [address] [place], [address] Calcium [Mass/Vol] 9.1 mg/dL Normal 7.6-11.0 [facility] Comment on above: Performed By: #### L 100.0100, L500.4050 #### [facility] [address] [place], [address] Chloride [Moles/Vol] 102 mmol/L Normal 98-108 [facility] Comment on above: Performed By: #### L 100.0100, L500.4050 #### [facility] [address] [place], [address] CO2 [Moles/Vol] 25.4 mmol/L Normal 21.0-32.0 [facility] Comment on above: Performed By: #### L 100.0100, L500.4050 #### [facility] [address] [place], [address] Creatinine [Mass/Vol] 0.65 mg/dL Low 0.70-1.20 [facility] Comment on above: Performed By: #### L 100.0100, L500.4050 #### [facility] [address] [place], [address] GAP 12 Normal 5-15 [facility] Comment on above: Performed By: #### L 100.0100, L500.4050 #### [facility] [address] [place], [address] GFR/1.73 sq M.predicted among non-blacks MDRD (S/P/Bld) [Vol rate/Area] 87 mL/min/{1.73_m2} Normal >60 [facility] Comment on above: Result Comment: mL/m in/1.73m2 CKD-EPI Creatinine Equation (2020) Performed By: #### L 100.0100, L500.4050 #### [facility] [address] [place], [address] Globulin (S) [Mass/Vol] 3.2 g/dL Normal 2.2-4.2 [facility] Comment on above: Performed By: #### L 100.0100, L500.4050 #### [facility] [address] [place], [address] Glucose [Mass/Vol] 92 mg/dL Normal 70-99 [facility] Comment on above: Performed By: #### L 100.0100, L500.4050 #### [facility] [address] [place], [address] Potassium [Moles/Vol] 4.7 mmol/L Normal 3.3-5.1 [facility] Comment on above: Performed By: #### L 100.0100, L500.4050 #### [facility] [address] [place], [address] Sodium [Moles/Vol] 139 mmol/L Normal 133-145 [facility] Comment on above: Performed By: #### L 100.0100, L500.4050 #### [facility] [address] [place], [address] T PROT 6.3 g/dL Normal 5.9-8.4 [facility] Comment on above: Performed By: #### L 100.0100, L500.4050 #### [facility] [address] [place], [address] Urea nitrogen [Mass/Vol] 13 mg/dL Normal 4-19 [facility] Comment on above: Performed By: #### L 100.0100, L500.4050 #### [facility] [address] [place], [address] Eosinophil percentageOrdered By: Dina Olea on 06-26-2024 Eosinophils/100 WBC (Bld) 2.8 % 0-5 [facility] Erythrocyte distribution wid th ratioOrdered By: Dina Olea on 06-26-2024 Erythrocyte distribution width (RBC) [Ratio] 15.2 % High 11.6-14.6 [facility] Erythrocyte distribution wid th standard deviationOrdered By: Dina Olea on 06-26-2024 Erythrocyte distribution width (RBC) [Ratio] 52.2 fl High 35.1-43.9 [facility] Glomerular filtration rate ( GFR) estimation/1.73 sq m using serum, plasma, or whole bOrdered By: Dina Olea on 06-26-2024 GFR/1.73 sq M.predicted among non-blacks MDRD (S/P/Bld) [Vol rate/Area] 87 mL/min/{1.73_m2} >60 [facility] Comment on above: mL/min/1.73m2 CKD-EP I Creatinine Equation (2020) Hematocrit Auto (Bld) [Volum e fraction]Ordered By: Dina Olea on 06-26-2024 Hematocrit (Bld) [Volume fraction] 38.1 % 37-47 [facility] Hemoglobin measurementOrdere d By: Dina Olea on 06-26-2024 Hemoglobin (Bld) [Mass/Vol] 12.6 g/dL 12.0-15.0 [facility] Immature granulocytes/100 WB C Auto (Bld)Ordered By: Dina Olea on 06-26-2024 Immature granulocytes/100 WBC (Bld) 1.000 % High 0.0-0.9 [facility] Comment on above: IG% - Immature Granu locytes (promyelocytes, myelocytes and metamyelocytes) > 1% indicates that a LEFT SHIFT is Present. Laboratory - Chemistry and C hemistry - challengeOrdered By: Dina Olea on 06-26-2024 AST [Catalytic activity/Vol] 32 U/L <32 [facility] MCV (mean corpuscular volume ) determinationOrdered By: Dina Olea on 06-26-2024 MCV (RBC) [Entitic vol] 95.3 fL 81-99 [facility] Mean corpuscular hemoglobin (MCH) determinationOrdered By: Dina Olea 06-26-2024 MCH (RBC) [Entitic mass] 31.5 pg 27.0-32.0 [facility] Mean corpuscular hemoglobin concentration (MCHC) determinationOrdered By: Dina Olea on 06-26-2024 MCHC (RBC) [Mass/Vol] 33.1 g/dL 32-36 [facility] Mean platelet volume determi nationOrdered By: Dina Olea on 06-26-2024 Platelet mean volume (Bld) [Entitic vol] 11.3 fL 6.2-12.0 [facility] Monocyte percentageOrdered B y: Dina Olea on 06-26-2024 Monocytes/100 WBC (Bld) 11.6 % High 0-10 [facility] Neutrophil percentageOrdered By: Dina Olea on 06-26-2024 Neutrophils/100 WBC (Bld) 49.9 % 47-70 [facility] Nucleated red blood cell per centageOrdered By: Dina Olea on 06-26-2024 Nucleated RBC/100 WBC (Bld) [Ratio] 0 % 0-5 [facility] Platelet countOrdered By: Susan Olea on 06-26-2024 Platelets (Bld) [#/Vol] 251 10*3/uL 150-450 [facility] Potassium measurement (mass/ volume)Ordered By: Dina Olea on 06-26-2024 Potassium (Unsp spec) [Mass/Vol] 4.7 mmol/L 3.3-5.1 [facility] RBC Auto (Bld) [#/Vol]Ordere d By: Dina Olea on 06-26-2024 RBC (Bld) [#/Vol] 4.00 10*6/uL Low 4.2-5.4 [facility] Serum creatinine measurement (mass/volume)Ordered By: Dina Olea on 06-26-2024 Creatinine [Mass/Vol] 0.65 mg/dL Low 0.70-1.20 [facility] Serum globulin measurementOr dered By: Dina Olea on 06-26-2024 Globulin (S) [Mass/Vol] 3.2 g/dL 2.2-4.2 [facility] Serum glucose measurement (m ass/volume)Ordered By: Dina Olea on 06-26-2024 Glucose [Mass/Vol] 92 mg/dL 70-99 [facility] Serum or plasma alanine javier otransferase (ALT) measurementOrdered By: Dina Olea on 06-26-2024 ALT [Catalytic activity/Vol] 28 U/L <35 [facility] Serum or plasma albumin enmanuel urement (mass/volume)Ordered By: Dina Olea on 06-26-2024 Albumin [Mass/Vol] 3.1 g/dL Low 3.4-4.8 [facility] Serum or plasma albumin/glob ulin mass ratioOrdered By: Dina Olea on 06-26-2024 Albumin/Globulin [Mass ratio] 1.0 {ratio} 0.9-2.4 [facility] Serum or plasma alkaline preston sphatase measurementOrdered By: Dina Olea on 06-26-2024 ALP [Catalytic activity/Vol] 119 U/L High 35-104 [facility] Serum or plasma calcium enmanuel urement (mass/volume)Ordered By: Dina Olea on 06-26-2024 Calcium [Mass/Vol] 9.1 mg/dL 7.6-11.0 [facility] Serum or plasma urea nitroge n measurement (mass/volume)Ordered By: Dina Olea on 06-26-2024 Urea nitrogen [Mass/Vol] 13 mg/dL 4-19 [facility] Sodium levelOrdered By: Rupal Olea on 06-26-2024 Sodium [Moles/Vol] 139 mmol/L 133-145 [facility] Total proteinOrdered By: Violet Olea on 06-26-2024 Protein [Mass/Vol] 6.3 g/dL 5.9-8.4 [facility] White blood cell (WBC) count Ordered By: Dina Olea on 06-26-2024 WBC (Bld) [#/Vol] 6.0 10*3/uL 4.4-11.0 [facility] H pylori Ag Stl Ql IAon 06-02 H. pylori Ag IA Ql (Stl) H.PYLORI EIA RESULT: Negative for Helicobacter pylori antigen by EIA Normal [facility] Comment on above: Performed By: #### 1 7780-8, PANCEF ####[facility] LABCLIA [id number] [place] [address] [place] PANC ELASTASE, FECALon 06-15 ELASTASE INTERPRETATION Normal Normal Normal [facility] Comment on above: Order Comment: Speci men Type: STOOL SPECIMENOrdering Facility: [facility] Address: [address] [place] [address] Performed By: #### 1 7780-8, PANCEF ####[facility] LABCLIA [id number] [address] ELASTASE-1 CONCENTRATION >800 Normal >=200 [facility] Comment on above: Order Comment: Speci men Type: STOOL SPECIMENOrdering Facility: [facility] Address: [address] [place] [address] Result Comment: Inte rpretation: <100 ug/g: Severe Exocrine Pancreatic Insufficiency 100-199 ug/g: Mild to Moderate Exocrine Pancreatic Insufficiency >=200 ug/g: Normal Performed By: #### 1 7780-8, PANCEF ####[facility] LABCLIA [id number] [address] [place] CNOVon 06-08-2024 CNOV Office Visit (FAMPWS ) -- ANAYA DE LA O ([id number]) 1940 F Date Time Provider Department 06/08/24 12:00 PM EDENILSON NICHOLSON FAMPWS During your visit today, we recorded the following information about you: Temperature Pulse Respiration Blood pressure 97 degrees 60/minute 16/minute 120/80 Weight 54 kg Edenilson Nicholson, 06/10/2024 9:15 PM Signed CC: Anaya De La O is a 84 year old female who presents to the office for follow up HPI: She is present with her in the office today Was seen in the ER at [facility] on 03/23 (2 days ago) for [...] Acid (FINAC (more content not included)... Normal [facility] CNOVon 06-02-2024 CNOV Office Visit (FAMPWS ) -- ANAYA DE LA O ([id number]) 1940 F Date Time Provider Department 06/02/24 11:00 AM ANGELINE RAYWS During your visit today, we recorded the following information about you: Temperature Pulse Blood pressure Weight 97.3 degrees 51/minute 120/72 54.1 kg Angeline Ray APRN.IS ARCHITECT 06/03/2024 3:11 PM Signed 06/03/2024 The patient consented to the use of BrightEdge software for draft documentation of the visit consistent with [facility]?s Notice of Privacy Practices. HPI: Anaya [...] and pick (more content not included)... Normal [facility] XR LUMBAR 3V AP/LAT/L5-S1on 06-02-2024 XR [...] hypertrophy. COMBINED IMPRESSION: Degenerative changes as described. Medical Staff Manager: JAIME Transcribe Date/Time: Jun 08 2024 12:42P Dictated by : SHERRIE DOS SANTOS MD This examination was interpreted and the report reviewed and electronically signed by: SHERRIE DOS SANTOS MD on Jun 08 2024 12:43PM EST [id number] Normal [facility] XR THORACIC 3V AP/LAT/SWIMME RSon 06-02-2024 [...] hypertrophy. COMBINED IMPRESSION: Degenerative changes as described. Medical Staff Manager: JAIME Transcribe Date/Time: Jun 08 2024 12:42P Dictated by : SHERRIE DOS SANTOS MD This examination was interpreted and the report reviewed and electronically signed by: SHERRIE DOS SANTOS MD on Jun 08 2024 12:43PM EST [id number] Normal [facility] 05-15-2024 [facility] HNO ID: [id number] Author: GRACE RODAS CT Service: Radiology Author Type: Technologist Type: [...] PATIENT PRESENTS WITH AN IMPLANTABLE OR ATTACHED TUBE CUTTER: No ALLERGIES: Reviewed and unchanged CONTRAST ALLERGY: [...] RADIOLOGY DEPARTMENT: CT; Exam(s) Completed: Abdomen/Pelvis SIGNATURE: GLO Muir PATIENT NAME: Anaya De La O DATE: May 15, 2024 TIME: 8:50 PM Normal [facility] CBC W Auto Differential pane l (Bld)on 05-15-2024 Basophils (Bld) [#/Vol] 10*3/uL Normal <0.11 [facility] Comment on above: Order Comment: Speci men Type: BLOOD SPECIMENOrdering Facility: [facility] Address: [address] [place] [address] Performed By: #### 5 7021-8 ####[facility] LABORATORYCLIA [id number] [address] Basophils/100 WBC (Bld) 0.4 % Normal [facility] Comment on above: Order Comment: Speci men Type: BLOOD SPECIMENOrdering Facility: [facility] Address: [address] [place] [address] Performed By: #### 5 7021-8 ####[facility] LABORATORYCLIA [id number] [address] [place] Differential cell count method Nom (Bld) Auto Normal [facility] Comment on above: Order Comment: Speci men Type: BLOOD SPECIMENOrdering Facility: [facility] Address: [address] [place] [address] Performed By: #### 5 7021-8 ####[facility] LABORATORYCLIA [id number] [address] [place] Eosinophils (Bld) [#/Vol] 0.07 10*3/uL Normal <0.46 [facility] Comment on above: Order Comment: Speci men Type: BLOOD SPECIMENOrdering Facility: [facility] Address: [address] [place] [address] Performed By: #### 5 7021-8 ####[facility] LABORATORYCLIA [id number] [address] Eosinophils/100 WBC (Bld) 1.3 % Normal [facility] Comment on above: Order Comment: Speci men Type: BLOOD SPECIMENOrdering Facility: [facility] Address: [address] [place] [address] Performed By: #### 5 7021-8 ####[facility] LABORATORYCLIA [id number] [place] [address] [place] Erythrocyte distribution width (RBC) [Ratio] 14.3 % Normal 11.5-15.0 [facility] Comment on above: Order Comment: Speci men Type: BLOOD SPECIMENOrdering Facility: [facility] Address: [address] [place] [address] Performed By: #### 5 7021-8 ####[facility] LABORATORYCLIA [id number] [place] [address] [place] Hematocrit (Bld) [Volume fraction] 39.0 % Normal 36.0-46.0 [facility] Comment on above: Order Comment: Speci men Type: BLOOD SPECIMENOrdering Facility: [facility] Address: [address] [place] [address] Performed By: #### 5 7021-8 ####[facility] LABORATORYCLIA [id number] [place] [address] [place] Hemoglobin (Bld) [Mass/Vol] 13.1 g/dL Normal 11.5-15.5 [facility] Comment on above: Order Comment: Speci men Type: BLOOD SPECIMENOrdering Facility: [facility] Address: [address] [place] [address] Performed By: #### 5 7021-8 ####[facility] LABORATORYCLIA [id number] [address] [place] Immature granulocytes (Bld) [#/Vol] 10*3/uL Normal <0.10 [facility] Comment on above: Order Comment: Speci men Type: BLOOD SPECIMENOrdering Facility: [facility] Address: [address] [place] [address] Performed By: #### 5 7021-8 ####[facility] LABORATORYCLIA [id number] [address] [place] Immature granulocytes/100 WBC (Bld) 0.4 % Normal [facility] Comment on above: Order Comment: Speci men Type: BLOOD SPECIMENOrdering Facility: [facility] Address: [address] [place] [address] Performed By: #### 5 7021-8 ####[facility] LABORATORYCLIA [id number] [address] Lymphocytes (Bld) [#/Vol] 1.37 10*3/uL Normal 1.00-4.00 [facility] Comment on above: Order Comment: Speci men Type: BLOOD SPECIMENOrdering Facility: [facility] Address: [address] [place] [address] Performed By: #### 5 7021-8 ####[facility] LABORATORYCLIA [id number] [address] Lymphocytes/100 WBC (Bld) 25.0 % Normal [facility] Comment on above: Order Comment: Speci men Type: BLOOD SPECIMENOrdering Facility: [facility] Address: [address] [place] [address] Performed By: #### 5 7021-8 ####[facility] LABORATORYCLIA [id number] [address] MCH (RBC) [Entitic mass] 31.0 pg Normal 26.0-34.0 [facility] Comment on above: Order Comment: Speci men Type: BLOOD SPECIMENOrdering Facility: [facility] Address: [address] [place] [address] Performed By: #### 5 7021-8 ####[facility] LABORATORYCLIA [id number] [address] MCHC (RBC) [Mass/Vol] 33.6 g/dL Normal 30.5-36.0 [facility] Comment on above: Order Comment: Speci men Type: BLOOD SPECIMENOrdering Facility: [facility] Address: [address] [place] [address] Performed By: #### 5 7021-8 ####[facility] LABORATORYCLIA [id number] [address] MCV (RBC) [Entitic vol] 92.4 fL Normal 80.0-100.0 [facility] Comment on above: Order Comment: Speci men Type: BLOOD SPECIMENOrdering Facility: [facility] Address: [address] [place] [address] Performed By: #### 5 7021-8 ####[facility] LABORATORYCLIA [id number] [place] [address] [place] Monocytes (Bld) [#/Vol] 0.50 10*3/uL Normal <0.87 [facility] Comment on above: Order Comment: Speci men Type: BLOOD SPECIMENOrdering Facility: [facility] Address: [address] [place] [address] Performed By: #### 5 7021-8 ####[facility] LABORATORYCLIA [id number] [address] [place] Monocytes/100 WBC (Bld) 9.1 % Normal [facility] Comment on above: Order Comment: Speci men Type: BLOOD SPECIMENOrdering Facility: [facility] Address: [address] [place] [address] Performed By: #### 5 7021-8 ####[facility] LABORATORYCLIA [id number] [place] [address] [place] Neutrophils (Bld) [#/Vol] 3.51 10*3/uL Normal 1.45-7.50 [facility] Comment on above: Order Comment: Speci men Type: BLOOD SPECIMENOrdering Facility: [facility] Address: [address] [place] [address] Performed By: #### 5 7021-8 ####[facility] LABORATORYCLIA [id number] [address] [place] Neutrophils/100 WBC (Bld) 63.8 % Normal [facility] Comment on above: Order Comment: Speci men Type: BLOOD SPECIMENOrdering Facility: [facility] Address: [address] [place] [address] Performed By: #### 5 7021-8 ####[facility] LABORATORYCLIA [id number] [place] [address] [place] [facility] [place] Nucleated RBC (Bld) [#/Vol] 10*3/uL Normal <0.01 [facility] Comment on above: Order Comment: Speci men Type: BLOOD SPECIMENOrdering Facility: [facility] Address: [address] [place] [address] Performed By: #### 5 7021-8 ####[facility] LABORATORYCLIA [id number] [address] [place] Nucleated RBC/100 WBC (Bld) [Ratio] 0.0 /100 WBC Normal [facility] Comment on above: Order Comment: Speci men Type: BLOOD SPECIMENOrdering Facility: [facility] Address: [address] [place] [address] Performed By: #### 5 7021-8 ####[facility] LABORATORYCLIA [id number] [address] [place] Platelet mean volume (Bld) [Entitic vol] 10.3 fL Normal 9.0-12.7 [facility] Comment on above: Order Comment: Speci men Type: BLOOD SPECIMENOrdering Facility: [facility] Address: [address] [place] [address] Performed By: #### 5 7021-8 ####[facility] LABORATORYCLIA [id number] [address] [place] Platelets (Bld) [#/Vol] 236 10*3/uL Normal 150-400 [facility] Comment on above: Order Comment: Speci men Type: BLOOD SPECIMENOrdering Facility: [facility] Address: [address] [place] [address] Performed By: #### 5 7021-8 ####[facility] LABORATORYCLIA [id number] [address] [place] RBC (Bld) [#/Vol] 4.22 10*6/uL Normal 3.90-5.20 [facility] Comment on above: Order Comment: Speci men Type: BLOOD SPECIMENOrdering Facility: [facility] Address: [address] [place] [address] Performed By: #### 5 7021-8 ####[facility] LABORATORYCLIA [id number] [address] [place] WBC (Bld) [#/Vol] 5.49 10*3/uL Normal 3.70-11.00 [facility] Comment on above: Order Comment: Speci men Type: BLOOD SPECIMENOrdering Facility: [facility] Address: [address] [place] [address] Performed By: #### 5 7021-8 ####[facility] LABORATORYCLIA [id number] [place] [address] [place] [address] ABD/PEL W IVCONon 14-[address] ABD/PEL W IVCON * * *Final Report* * * DATE OF EXAM: May 15 2024 9:01PM [facility] 0530 - CT ABD/PEL W IVCON / [...] infiltration of liver. 4. Small hiatal hernia. Medical Staff Manager: PSCJeovanny Transcribe Date/Time: May 15 2024 9:52P Dictated by : VICKI MALDONADO MD This examination was interpreted and the report reviewed and electronically signed by: VICKI MALDONADO MD on May 15 2024 10:01PM EST [id number] Normal [facility] Comprehensive metabolic 2000 panelon 05-15-2024 Albumin [Mass/Vol] 4.1 g/dL Normal 3.9-4.9 [facility] Comment on above: Order Comment: Speci men Type: BLOOD SPECIMENOrdering Facility: [facility] Address: [address] [place] [address] Performed By: #### 2 4323-8, 3040-3 ####[facility] LABORATORYCLIA [id number] [place] [address] [place] ALP [Catalytic activity/Vol] 128 U/L High 34-123 [facility] Comment on above: Order Comment: Speci men Type: BLOOD SPECIMENOrdering Facility: [facility] Address: [address] [place] [address] Performed By: #### 2 4323-8, 3040-3 ####[facility] LABORATORYCLIA [id number] [address] [place] ALT [Catalytic activity/Vol] 31 U/L Normal 7-38 [facility] Comment on above: Order Comment: Speci men Type: BLOOD SPECIMENOrdering Facility: [facility] Address: [address] [place] [address] Performed By: #### 2 4323-8, 3040-3 ####[facility] LABORATORYCLIA [id number] [place] [id number] [place] Anion gap [Moles/Vol] 11 mmol/L Normal 8-15 [facility] Comment on above: Order Comment: Speci men Type: BLOOD SPECIMENOrdering Facility: [facility] Address: [address] [place] [address] Performed By: #### 2 4323-8, 3040-3 ####[facility] LABORATORYCLIA [id number] [place] [address] [place] AST [Catalytic activity/Vol] 30 U/L Normal 13-35 [facility] Comment on above: Order Comment: Speci men Type: BLOOD SPECIMENOrdering Facility: [facility] Address: [address] [place] [address] Performed By: #### 2 4323-8, 3040-3 ####[facility] LABORATORYCLIA [id number] [place] [address] [place] Bilirubin [Mass/Vol] 0.4 mg/dL Normal 0.2-1.3 [facility] Comment on above: Order Comment: Speci men Type: BLOOD SPECIMENOrdering Facility: [facility] Address: [address] [place] [address] Performed By: #### 2 4323-8, 3039-3 ####[facility] LABORATORYCLIA [id number] [address] [place] Calcium [Mass/Vol] 9.6 mg/dL Normal 8.5-10.2 [facility] Comment on above: Order Comment: Speci men Type: BLOOD SPECIMENOrdering Facility: [facility] Address: [address] [place] [address] Performed By: #### 2 4323-8, 3039-3 ####[facility] LABORATORYCLIA [id number] [place] [address] [place] Chloride [Moles/Vol] 99 mmol/L Normal 98-107 [facility] Comment on above: Order Comment: Speci men Type: BLOOD SPECIMENOrdering Facility: [facility] Address: [address] [place] [address] Performed By: #### 2 4323-8, 3040-3 ####[facility] LABORATORYCLIA [id number] [place] [address] [place] CO2 [Moles/Vol] 24 mmol/L Normal 22-30 [facility] Comment on above: Order Comment: Speci men Type: BLOOD SPECIMENOrdering Facility: [facility] Address: [address] [place] [address] Performed By: #### 2 4323-8, 3040-3 ####[facility] LABORATORYCLIA [id number] [place] [address] [place] Creatinine [Mass/Vol] 0.76 mg/dL Normal 0.58-0.96 [facility] Comment on above: Order Comment: Wellington zuniga Type: BLOOD SPECIMENOrdering Facility: [facility] Address: [address] [place] [address] Performed By: #### 2 4323-8, 3040-3 ####[facility] LABORATORYCLIA [id number] [address] Creatinine and Glomerular filtration rate.predicted panel (S/P/Bld) 77 mL/min/1.73m??? Normal >=60 [facility] Comment on above: Order Comment: Wellington zuniga Type: BLOOD SPECIMENOrdering Facility: [facility] Address: [address] [place] [address] Result Comment: Julianna mated Glomerular Filtration Rate [...] By: #### 2 4323-8, 3039-3 ####[facility] LABORATORYCLIA [id number] [address] [place] Glucose [Mass/Vol] 111 mg/dL High 74-99 [facility] Comment on above: Order Comment: Wellington zuniga Type: BLOOD SPECIMENOrdering Facility: [facility] Address: [address] [place] [address] Result Comment: The [place] Diabetes Association (ADA) provides guidance for cutoff [...] Standards of Medical Care in Diabetes 2016, [employer] Diabetes Association. Diabetes Care. 2016.39(Suppl 1). Performed By: #### 2 4323-8, 3040-3 ####[facility] LABORATORYCLIA [id number] [place], [place] [address] [place] [address] [place] [facility] Potassium [Moles/Vol] 4.4 mmol/L Normal 3.7-5.1 [facility] Comment on above: Order Comment: Girishi men Type: BLOOD SPECIMENOrdering Facility: [facility] Address: [address] [place] [address] Performed By: #### 2 4323-8, 3039-3 ####[facility] LABORATORYCLIA [id number] [address] Protein [Mass/Vol] 6.4 g/dL Normal 6.3-8.0 [facility] Comment on above: Order Comment: Wellington zuniga Type: BLOOD SPECIMENOrdering Facility: [facility] Address: [address] [place] [address] Performed By: #### 2 4323-8, 0-3 ####[facility] LABORATORYCLIA [id number] [address] Sodium [Moles/Vol] 134 mmol/L Low 136-144 [facility] Comment on above: Order Comment: Wellington zuniga Type: BLOOD SPECIMENOrdering Facility: [facility] Address: [address] [place] [address] Performed By: #### 2 4323-8, 3040-3 ####[facility] LABORATORYCLIA [id number] [place] [id number] [place] [facility] Urea nitrogen [Mass/Vol] 13 mg/dL Normal 7-21 [facility] Comment on above: Order Comment: Wellington zuniga Type: BLOOD SPECIMENOrdering Facility: [facility] Address: [address] [place] [address] Performed By: #### 2 4323-8, 3040-3 ####[facility] LABORATORYCLIA [id number] [place] [address] [place] ED PROV NOTEon 05-15-2024 ED PROV NOTE HNO ID: [id number] Author: TOMER MCCOY PA-C Service: ? Author Type: Physician Laundry Folder Type: ED Provider Notes Filed: 05/15/2024 23:36 Note Text: ED Provider Note Patient Name: Anaya De La O : 1940 SERVICE DATE: 05/15/24 History Patient [...] 123 U/L (more content not included)... Normal [facility] ED Triage Noteon 05-15-2024 ED Triage Note HNO ID: [id number] Author: JESSY BARAHONA MD Service: Emergency Medicine Author Type: Physician Type: ED Triage Notes Filed: 05/15/2024 20:15 Note Text: ED INTAKE NOTE Patient Name: Anaya De La O Service Date: 05/15/24 BRIEF HPI: This is [...] with assistance from bedside clinician. SIGNATURE: Jessy Barahona MD Normal [facility] Lipase SerPl-cCncon 05-16-19 25 Lipase [Catalytic activity/Vol] 43 U/L Normal 16-61 [facility] Comment on above: Order Comment: Speci men Type: BLOOD SPECIMENOrdering Facility: [facility] Address: [address] [place] [address] Performed By: #### 2 4323-8, 3040-3 ####[facility] LABORATORYCLIA [id number] [place] [address] [place] Urinalysis complete panel (U )on 05-15-2024 Bilirubin Ql (U) Negative Normal Negative [facility] Comment on above: Order Comment: Speci men Type: URINE SPECIMENOrdering Facility: [facility] Address: [address] [place] [address] Performed By: #### 2 4356-8 ####[facility] LABORATORYCLIA [id number] [address] [place] Clarity (Unsp spec) Clear Normal Clear [facility] Comment on above: Order Comment: Speci men Type: URINE SPECIMENOrdering Facility: [facility] Address: [address] [place] [address] Performed By: #### 2 4356-8 ####[facility] LABORATORYCLIA [id number] [place] [id number] [place] Color (U) Yellow Normal Yellow [facility] Comment on above: Order Comment: Speci men Type: URINE SPECIMENOrdering Facility: [facility] Address: [address] [place] [address] Performed By: #### 2 4356-8 ####[facility] LABORATORYCLIA [id number] [address] [place] Epithelial cells LM.HPF (Urine sed) [#/Area] Few Normal [facility] Comment on above: Order Comment: Speci men Type: URINE SPECIMENOrdering Facility: [facility] Address: [address] [place] [address] Performed By: #### 2 4356-8 ####[facility] LABORATORYCLIA [id number] [address] [place] Glucose Test strip (U) [Mass/Vol] Negative Normal Negative [facility] Comment on above: Order Comment: Speci men Type: URINE SPECIMENOrdering Facility: [facility] Address: [address] [place] [address] Performed By: #### 2 4356-8 ####[facility] LABORATORYCLIA [id number] [place] [id number] [facility] [place] Hemoglobin Ql (U) Trace Abnormal Negative [facility] Comment on above: Order Comment: Speci men Type: URINE SPECIMENOrdering Facility: [facility] Address: [address] [place] [address] Performed By: #### 2 4356-8 ####[facility] LABORATORYCLIA [id number] [place] [address] [place] Ketones Ql (U) Negative Normal Negative [facility] Comment on above: Order Comment: Speci men Type: URINE SPECIMENOrdering Facility: [facility] Address: [address] [place] [address] Performed By: #### 2 4356-8 ####[facility] LABORATORYCLIA [id number] [place] [address] [place] Leukocyte esterase Test strip Ql (U) Negative Normal Negative [facility] Comment on above: Order Comment: Speci men Type: URINE SPECIMENOrdering Facility: [facility] Address: [address] [place] [address] Performed By: #### 2 4356-8 ####[facility] LABORATORYCLIA [id number] [address] [place] Nitrite Ql (U) Negative Normal Negative [facility] Comment on above: Order Comment: Speci men Type: URINE SPECIMENOrdering Facility: [facility] Address: [address] [place] [address] Performed By: #### 2 4356-8 ####[facility] LABORATORYCLIA [id number] [place] [address] [place] pH (U) 6.5 [pH] Normal 5.0-8.0 [facility] Comment on above: Order Comment: Speci men Type: URINE SPECIMENOrdering Facility: [facility] Address: [address] [place] [address] Performed By: #### 2 4356-8 ####[facility] LABORATORYCLIA [id number] [place] [address] [place] Protein (U) [Mass/Vol] Negative Normal Negative [facility] Comment on above: Order Comment: Speci men Type: URINE SPECIMENOrdering Facility: [facility] Address: [address] [place] [address] Performed By: #### 2 4356-8 ####[facility] LABORATORYCLIA [id number] [place] [address] [place] RBC LM.HPF (Urine sed) [#/Area] 0-3 /HPF Normal 0-3 /HPF [facility] Comment on above: Order Comment: Speci men Type: URINE SPECIMENOrdering Facility: [facility] Address: [address] [place] [address] Performed By: #### 2 4356-8 ####[facility] LABORATORYCLIA [id number] [address] Specific gravity (U) [Rel density] 1.010 Normal 1.005-1.030 [facility] Comment on above: Order Comment: Speci men Type: URINE SPECIMENOrdering Facility: [facility] Address: [address] [place] [address] Performed By: #### 2 4356-8 ####TR[facility] LABORATORYCLIA [id number] [address] [place] Urobilinogen Ql (U) 0.2 EU/dL Normal 0.2-1.0 EU/dL [facility] Comment on above: Order Comment: Speci men Type: URINE SPECIMENOrdering Facility: [facility] Address: [address] [place] [address] Performed By: #### 2 4356-8 ####[facility] LABORATORYCLIA [id number] [address] WBC LM.HPF (Urine sed) [#/Area] 0-5 /HPF Normal 0-5 /HPF [facility] Comment on above: Order Comment: Speci men Type: URINE SPECIMENOrdering Facility: [facility] Address: [address] [place] [address] Performed By: #### 2 4356-8 ####TR[facility] LABORATORYCLIA [id number] [address] [place] Bacteria Ur Culton Bacteria identified Cx Nom (U) ORGANISM ID: 1 <10,000 CFU/ml Normal urogenital ji Normal [facility] Comment on above: Performed By: #### 6 30-4 ####[facility] LABCLIA [id number] [address] [place] CNOVon 05-06-2024 CNOV Office Visit (FAMPWS ) -- ANAYA DE LA O ([id number]) 1940 F Date Time Provider Department 05/06/24 10:00 [facility] visit today, we recorded the following information about you: Temperature Pulse Respiration Blood pressure 98.2 degrees 54/minute 12/minute 110/62 Weight 55.2 kg [place], PARMJIT.IS ARCHITECT 05/06/2024 11:24 AM Signed Chief Complaint Patient presents with: Urinary Frequency: For about 2-3 days completed celphalexin on 05/03 HPI Anaya De La O is a 84 year old female who presents here today for Above Complaints. Anaya is an established patient of Dr. Bharat DO. Concerns today.. Was seen at [facility] on 04/26 d/t urinary urgency/frequency and cough/congestion. [...] a day (more content not included)... Normal [facility] UA DIP, URINE (POC)on 2024 BILIRUBIN UA (POCT) Negative Negative [facility] CLARITY UA (POCT) Clear [facility] COLOR UA (POCT) Yellow [facility] GLUCOSE UA (POCT) Negative Negative mg/dL [facility] Hemoglobin Ql (U) Negative Negative [facility] Interpretation and review of laboratory results Abnormal [facility] KETONE UA (POCT) Negative Negative mg/dL [facility] LEUKOCYTES UA (POCT) Trace Abnormal Negative [facility] NITRITE UA (POCT) Negative Negative [facility] PH UA (POCT) 7.5 4.5 - 8.0 [facility] Protein Ql (U) Negative Negative mg/dL [facility] SPECIFIC GRAVITY UA (POCT) 1.015 1.005 - 1.030 [facility] UROBILINOGEN UA (POCT) 0.2 Jacqueline l E.U./dL [facility] Location:[address], [place], [place], [address] [place] [address] POINT OF CARE [facility] MRI PANC/ARETHA WO/W IVCONon MRI PANC/ARETHA WO/W IVCON * * *Final Report* * * DATE OF EXAM: Apr 30 2024 12:15PM [facility] 0730 - MRI PANC/ARETHA WO/W IVCON / PROCEDURE REASON: Pancreas cyst * * * * Physician Interpretation * * * * Examination: MRI PANC/ARETHA WO/W IVCON History: Pancreas cyst Comparison: 03/23/2024 CT. 05/22/2023 MR TECHNIQUE: Using the torso phased array coil, axial STIR, T1 weighted in- and bcl-yg-erptd and axial and coronal HASTE (multslice MRCP) [...] lesion. No pathologic enhancement. No worrisome features. Medical Staff Manager: [facility] Transcribe Date/Time: May 01 2024 3:34P Dictated by : LIDIA AGUILAR MD This examination was interpreted and the report reviewed and electronically signed by: LIDIA AGUILAR MD on May 01 2024 3:43PM EST [id number] Normal [facility] XR CHEST 2V FRONTAL/LATon XR CHEST [...] thoracic spine. IMPRESSION: No acute radiographic abnormality. Medical Staff Manager[facility] Transcribe Date/Time: Apr 27 2024 11:46A Dictated by : RAUL MUNSON MD This examination was interpreted and the report reviewed and electronically signed by: RAUL MUNSON MD on Apr 27 2024 11:54AM EST [id number] Normal [facility] XR Chest PA and Lateralon IMPRESSION: No acute radiographic abnormality. Medical Staff Manager: [facility] Transcribe Date/Time: Apr 27 2024 11:46A Dictated [...] the thoracic spine. DIVISION OF RADIOLOGY Provider, Fatimah Carbone [facility] - 04/27/2024 * * *Final Report* [...] spine. IMPRESSION IMPRESSION: No acute radiographic abnormality. Medical Staff Manager: [facility] Transcribe Date/Time: Apr 27 2024 11:46A Dictated by : RAUL MUNSON MD This examination was interpreted and the report reviewed and electronically signed by: RAUL MUNSON MD on Apr 27 2024 11:54AM EST [facility] Radiology Study observation (narrative) [facility] XR Chest PA and LateralOrder ed By: [facility] Provider on 04-27-2024 [facility] Bacteria Ur Culton 5 Bacteria identified Cx Nom (U) ORGANISM ID: 1 50,000-<100,000 CFU/ml Mixed microbiota No further workup. Mixed microbiota can be due to???urine???contamination with skin bacteria at time of collection or presence of a long-term urinary catheter. If a new culture is needed, please consider re-education of the patient on proper midstream co llection technique or straight catheterization for???urine???collection. Normal [facility] Comment on above: Performed By: #### 6 30-4 ####[facility] LABCLIA [id number] [facility] [id number] [address] [place] [facility] CNOVon 04-26-2024 CNOV Office Visit (UCWSTR ) -- ANAYA DE LA O ([id number]) 1940 F Date Time Provider Department 04/26/24 1:00 PM SHERRIE GONZALES WSTR During your visit today, we recorded the following information about you: Temperature Pulse Respiration Blood pressure 97.9 degrees 60/minute 20/minute 120/68 Weight 55.9 kg Sherrie Gonzales APRN.CNP 04/26/2024 1:36 PM Addendum Return tomorrow for [...] your medication or fluids down. Sherrie Gonzales APRN.IS ARCHITECT 04/26/2024 2:05 PM Addendum Subjective HPI HPI Anaya De La O is a 84 year old female who [...] ], Ephe (more content not included)... Normal [facility] UA DIP, URINE (POC)on 2024 BILIRUBIN UA (POCT) Negative Negative [facility] CLARITY UA (POCT) Clear [facility] COLOR UA (POCT) Yellow [facility] GLUCOSE UA (POCT) Negative Negative mg/dL [facility] Hemoglobin Ql (U) Trace-intact Abnormal Negative [facility] Interpretation and review of laboratory results Abnormal [facility] KETONE UA (POCT) Negative Negative mg/dL [facility] LEUKOCYTES UA (POCT) Small Abnormal Negative [facility] NITRITE UA (POCT) Negative Negative [facility] PH UA (POCT) 7 4.5 - 8.0 [facility] Protein Ql (U) Negative Negative mg/dL [facility] SPECIFIC GRAVITY UA (POCT) 1.015 1.005 - 1.030 [facility] UROBILINOGEN UA (POCT) 0.2 Jacqueline l E.U./dL [facility] Location: [place], [address] [facility], [place], [address] [facility] POINT OF CARE [facility] CNOVon 04-15-2024 CNOV Office Visit (FAMPWS ) -- ANAYA DE LA O ([id number]) 1940 F Date Time Provider Department 04/15/24 12:40 PM TO DURAN During your visit today, we recorded the following information about you: Temperature Pulse Respiration Blood pressure 98.2 degrees 54/minute 16/minute 128/62 Weight 55.7 kg To Duran MD 04/15/2024 1:15 PM Signed Chief Complaint Patient presents with: URI Cough: Productive HPI Anaya De La O is a 84 year old female who [...] Drop in (more content not included)... Normal [facility] Telephone (FAMPWS) -- ANAYA DE LA O ([id number]) 1940 F Date Time Provider Department 04/15/24 [facility] During your visit today, we recorded the following information about you: Nell Barnett, RN 04/15/2024 11:28 AM Signed Pt called in and reports she has a cough and is bringing up slightly yellow mucus. Pt denies runny nose, SOB, and wheezing. Pt does not know if she has been running a fever. Pt scheduled with Dr Duran today at 1240. Allergies As of Date: [...] then Date Reviewed: 03/25/2024 Reviewed by: Angeline Ray APRN.IS ARCHITECT - Fully Assessed Reason for Visit: Patient [...] MS Does not take Naprosyn or Ibuprofen [facility] -May 27, 2019 Patient currently taking [...] 10/08/2018 Inflammatory (more content not included)... Normal [facility] [id number] 04-06-2024 [id number] HNO ID: [id number] Author: KATHRYN FLORES PT Service: ? Author Type: Physical Therapist Type: [id number] Filed: 04/06/2024 11:36 Note Text: [facility] Therapy Physical Therapy Plan of Care Certification Patient Name: Anaya De La O : 1940 [facility] #: [id number] Date: 04/06/2024 To: Angeline Ray APRN* From Therapist: Kathryn Flores PT RE: Patient Certification/ Recertification Your review, approval and electronic signature are required in order to comply with Payor: MMO MEDICARE / Plan: MMO MEDADVANTAGE HMO / Product Type: HMO / regulations. The identified Physical Therapy PLAN OF CARE for the patient is as follows: M54.50 Acute left-sided low back pain without sciatica PLAN OF CARE: Assessment: Anaya De La O presents with diagnosis of acute left sided [...] Planned: 1 Planned Treatment Interventions: Therapeutic exercise (39370), Self-assisted management (09545) PLAN FOR NEXT VISIT: DC -- symptoms resolved Patient demonstrates good understanding of plan of care and treatment. The above goals and plan of care were discussed and agreed upon by patient/family. For further details regarding this patient refer to the Physical Therapy electronically documented visit dated 04/06/2024. Provider Attestation I have reviewed the treatment plan for Anaya De La O, [facility]# [id number] for the period of 04/06/24 -- 04/06/24, established on 04/06/2024. Signature certifies the need for therapy services. Normal [facility] CBC W/Diff, Automatedon 02-0 Absolute Lymph 2.00 X10 3/uL Normal 0.83-4.51 [facility] Comment on above: Performed By: #### L 100.0100, L500.4050 #### [facility] [address] [place], [address] Absolute Neut 6.4 X10 3/uL Normal 2.0-7.7 [facility] Comment on above: Performed By: #### L 100.0100, L500.4050 #### [facility] [address] [place], [address] Basophils/100 WBC (Bld) 0.3 % Normal 0-1 [facility] Comment on above: Performed By: #### L 100.0100, L500.4050 #### [facility] [address] [place], [address] Eosinophils/100 WBC (Bld) 1.2 % Normal 0-5 [facility] Comment on above: Performed By: #### L 100.0100, L500.4050 #### [facility] [address] [place], [address] Erythrocyte distribution width (RBC) [Ratio] 14.3 % Normal 11.6-14.6 [facility] Comment on above: Performed By: #### L 100.0100, L500.4050 #### [facility] [address] [place], [address] Hematocrit (Bld) [Volume fraction] 39.0 % Normal 37-47 [facility] Comment on above: Performed By: #### L 100.0100, L500.4050 #### [facility] [address] [place], [address] Hemoglobin (Bld) [Mass/Vol] 12.4 g/dL Normal 12.0-15.0 [facility] Comment on above: Performed By: #### L 100.0100, L500.4050 #### [facility] [address] [place], [address] IG% 0.500 Normal 0.0-0.9 [facility] Comment on above: Result Comment: IG% - Immature Granulocytes (promyelocytes, myelocytes and metamyelocytes) > 1% indicates that a LEFT SHIFT is Present. Performed By: #### L 100.0100, L500.4050 #### [facility] [address] [place], [address] Lymphocytes/100 WBC (Bld) 21.9 % Normal 19-41 [facility] Comment on above: Performed By: #### L 100.0100, L500.4050 #### [facility] [address] [place], [address] MCH (RBC) [Entitic mass] 29.9 pg Normal 27.0-32.0 [facility] Comment on above: Performed By: #### L 100.0100, L500.4050 #### [facility] [address] [place], [address] MCHC (RBC) [Mass/Vol] 31.8 g/dL Low 32-36 [facility] Comment on above: Performed By: #### L 100.0100, L500.4050 #### [facility] [address] [place], [address] MCV (RBC) [Entitic vol] 94.0 fL Normal 81-99 [facility] Comment on above: Performed By: #### L 100.0100, L500.4050 #### [facility] [address] [place], [address] Monocytes/100 WBC (Bld) 6.7 % Normal 0-10 [facility] Comment on above: Performed By: #### L 100.0100, L500.4050 #### [facility] [address] [place], [address] Neutrophils/100 WBC (Bld) 69.4 % Normal 47-70 [facility] Comment on above: Performed By: #### L 100.0100, L500.4050 #### [facility] [address] [place], [address] Nucleated RBC (Bld) [#/Vol] 0 10*3/uL Normal 0-5 [facility] Comment on above: Performed By: #### L 100.0100, L500.4050 #### [facility] [address] [place], [address] Platelet mean volume (Bld) [Entitic vol] 10.8 fL Normal 6.2-12.0 [facility] Comment on above: Performed By: #### L 100.0100, L500.4050 #### [facility] [address] [place], [address] Platelets (Bld) [#/Vol] 222 10*3/uL Normal 150-450 [facility] Comment on above: Performed By: #### L 100.0100, L500.4050 #### [facility] [address] [place], [address] RBC (Bld) [#/Vol] 4.15 10*6/uL Low 4.2-5.4 [facility] Comment on above: Performed By: #### L 100.0100, L500.4050 #### [facility] [address] [place], [address] RDW SD 48.5 fl High 35.1-43.9 [facility] Comment on above: Performed By: #### L 100.0100, L500.4050 #### [facility] [address] [place], [address] WBC (Bld) [#/Vol] 9.2 10*3/uL Normal 4.4-11.0 [facility] Comment on above: Performed By: #### L 100.0100, L500.4050 #### [facility] [address] [place], [address] CNTHERAPYon 04-06-2024 CNTHERAPY OT/PT/Speech Visit ( PTWS) -- ANAYA DE LA O ([id number]) 1940 F Date Time Provider Department 04/06/24 11:00 AM KATHRYN FLORES PTWS Date Time Provider Department Center 04/06/2024 11:00 AM [id number]-YKATHRYN FLORES PTSHIRLEY [facility] Reason for Visit: PT Eval [747] Visit [...] then Date Reviewed: 03/25/2024 Reviewed by: Angeline Ray APRN.IS ARCHITECT - Fully Assessed Prescriptions as of 04/06/2024 [...] MS Does not take Naprosyn or Ibuprofen [facility] -May 27, 2019 Patient currently taking her prescription medications as prescriped. Esperanza Singleton RN 2019 Pt. stating has not been taking polyethylene glycol. Shonna Cervantes RN. Normal [facility] Metabolic Prof ilon 04-06-2024 Albumin [Mass/Vol] 3.4 g/dL Normal 3.2-5.0 [facility] Comment on above: Performed By: #### L 100.0100, L500.4050 #### [facility] [address] [place], [address] Albumin/Globulin [Mass ratio] 1.1 {ratio} Normal 0.9-2.4 [facility] Comment on above: Performed By: #### L 100.0100, L500.4050 #### [facility] [address] [place], [address] ALK P 119 U/L High 45-117 [facility] Comment on above: Performed By: #### L 100.0100, L500.4050 #### [facility] [address] [place], [address] ALT [Catalytic activity/Vol] 29 U/L Normal 13-56 [facility] Comment on above: Performed By: #### L 100.0100, L500.4050 #### [facility] [address] [place], [address] AST [Catalytic activity/Vol] 25 U/L Normal 15-37 [facility] Comment on above: Performed By: #### L 100.0100, L500.4050 #### [facility] [address] [place], [address] Bilirubin [Mass/Vol] 0.60 mg/dL Normal 0.20-1.00 [facility] Comment on above: Result Comment: For patients on eltrombopag therapy, use of Dimension [place] TBIL is not recommended. Performed By: #### L 100.0100, L500.4050 #### [facility] [address] [place], [address] BUN/CRE 14.4 RATIO Normal 10-20 [facility] Comment on above: Performed By: #### L 100.0100, L500.4050 #### [facility] [address] [place], [address] CA,Total 9.1 mg/dL Normal 8.5-10.1 [facility] Comment on above: Performed By: #### L 100.0100, L500.4050 #### [facility] [address] [place], [address] Chloride [Moles/Vol] 102 mmol/L Normal 98-107 [facility] Comment on above: Performed By: #### L 100.0100, L500.4050 #### [facility] [address] [place], [address] CO2 [Moles/Vol] 27.0 mmol/L Normal 21.0-32.0 [facility] Comment on above: Performed By: #### L 100.0100, L500.4050 #### [facility] [address] [place], [address] Creatinine [Mass/Vol] 0.62 mg/dL Normal 0.55-1.02 [facility] Comment on above: Result Comment: The validity of the calculated GFR GFRAA in patients over 70 years has not been determined. Clinical correlation is essential. Performed By: #### L 100.0100, L500.4050 #### [facility] [address] [place], [address] EST GFR - AA 117 mL/min Normal >60 [facility] Comment on above: Result Comment: Afri can Irish GFR Calc Performed By: #### L 100.0100, L500.4050 #### [facility] [address] [place], [address] GAP 7 Normal 5-15 [facility] Comment on above: Performed By: #### L 100.0100, L500.4050 #### [facility] [address] [place], [address] GFR/1.73 sq M.predicted among non-blacks MDRD (S/P/Bld) [Vol rate/Area] 97 mL/min/{1.73_m2} Normal >60 [facility] Comment on above: Result Comment: Non- GFR Calc Performed By: #### L 100.0100, L500.4050 #### [facility] [address] [place], [address] Globulin (S) [Mass/Vol] 3.1 g/dL Normal 2.2-4.2 [facility] Comment on above: Performed By: #### L 100.0100, L500.4050 #### [facility] [address] [place], [address] Glucose [Mass/Vol] 100 mg/dL Normal 74-106 [facility] Comment on above: Result Comment: Fast ing Glucose result from 100 to 125 mg/dL suggests IMPAIRED HOMEOSTASIS per A.D.A. criteria. Performed By: #### L 100.0100, L500.4050 #### [facility] [address] [place], [address] Potassium [Moles/Vol] 4.2 mmol/L Normal 3.5-5.1 [facility] Comment on above: Performed By: #### L 100.0100, L500.4050 #### [facility] [address] [place], [address] Sodium [Moles/Vol] 136 mmol/L Normal 136-145 [facility] Comment on above: Performed By: #### L 100.0100, L500.4050 #### [facility] [address] [place], [address] T PROT 6.5 g/dL Normal 6.4-8.2 [facility] Comment on above: Performed By: #### L 100.0100, L500.4050 #### [facility] [address] [place], [address] Urea nitrogen [Mass/Vol] 9 mg/dL Normal 7-18 [facility] Comment on above: Performed By: #### L 100.0100, L500.4050 #### [facility] [address] [place], [address] CNOVon 03-25-2024 CNOV Office Visit (FAMWS ) -- ANAYA DE LA O ([id number]) 1940 F [facility]* Date Time Provider Department 03/25/24 11:00 AM [facility] During your visit today, we recorded the following information about you: Pulse Respiration Blood pressure Weight 53/minute 16/minute 130/64 55.9 kg Angeline Ray APRN.IS ARCHITECT 03/25/2024 11:35 AM Signed Chief Complaint Patient presents with: ER F/U: Left side abd pain, muscle strain HPI Anaya De La O is a 84 year old female who presents here today for Above Complaints.. Was seen in the ER at [facility] on 03/23 (2 days ago) for [...] Smokeless toba (more content not included)... Normal [facility] 03-25-2024 [facility] Telephone (INTMWS) -- ANAYA DE LA O ([id number]) 1940 Sheryl Carty* Date Time Provider Department 03/25/24 EDENILSON NICHOLSON During your visit today, we recorded the following information about you: Makayla Ochoa LPN 03/25/2024 11:39 AM Signed Electronic PA rec'd and completed for cyclobenzapine. This was approved. Prior authorization approved Payer: [employer] [phone] Note from payer: CaseId:[id number];Status:Rafia roved;Review Type:Prior Auth;Coverage Start Date:02/24/2024;Coverage End Date:03/25/2025; Approval Details Authorized from February 24, 2024 to March 25, 2025 Electronic appeal: Not supported View History Pharmacy Benefits Open Encounter ANAYA DE LA O - [facility] ([place] ([employer]) Covered: Retail, Mail Order Unknown: Specialty, Long-Term Care BIN: [id number] : 1940 Group ID: [id number] PCN: Legal sex: F Group name: MEDICARE ADVANTAGE Address: [address] [place], [place] [id number] Medication Being Authorized cyclobenzaprine (FLEXERIL) 5 mg tablet Take 1 tablet by mouth three times a day as needed. Dispense: 30 tablet Refills: 1 Start: 03/25/2024 Class: Normal Diagnoses: Acute left-sided low back pain without sciatica This order has been released to its destination. To be filled at: e- [id number] [place] [address] [address] [facility] [phone] 4605 Allergies As of Date: 03/25/2024 Noted [...] then Date Reviewed: 03/25/2024 Reviewed by: Angeline Ray APRN.IS ARCHITECT - Fully Assessed Reason for Visit: Insurance [...] MS Does not take Naprosyn or Ibuprofen [facility] -May 27, 2019 Patient currently taking [...] 05/20/2017 Postmeno (more content not included)... [facility] HNO ID: [id number] Author: HUSSAIN VAZQUEZ RT(Boogie) Service: ? Author Type: Technologist Type: Allied [...] PATIENT PRESENTS WITH AN IMPLANTABLE OR ATTACHED TUBE CUTTER: No ALLERGIES: Reviewed and unchanged CONTRAST ALLERGY: [...] PERIPHERAL IV DATA: Inpatient - refer to [facility] documentation RADIOLOGY DEPARTMENT: CT; Exam(s) Completed: Abdomen/Pelvis SIGNATURE: RT Jennifer(R) PATIENT NAME: Anaya De La O DATE: March 23, 2024 TIME: 2:33 AM Normal [facility] CBC W Auto Differential pane l (Bld)on 03-23-2024 Basophils (Bld) [#/Vol] 0.03 10*3/uL Normal <0.11 [facility] Comment on above: Order Comment: Speci men Type: BLOOD SPECIMENOrdering Facility: [facility] Address: [address] [place] [address] [place] [id number] Performed By: #### 5 7021-8 ####[facility]ORY[facility] [id number] [place] [address] [place] Basophils/100 WBC (Bld) 0.3 % Normal [facility] Comment on above: Order Comment: Speci men Type: BLOOD SPECIMENOrdering Facility: [facility] Address: [address] [place] [address] Performed By: #### 5 7021-8 ####[facility] [id number] [address] Differential cell count method Nom (Bld) Auto Normal [facility] Comment on above: Order Comment: Speci men Type: BLOOD SPECIMENOrdering Facility: [facility] Address: [address] [place] [address] Performed By: #### 5 7021-8 ####[facility]ORY[facility] [id number] [place] [address] [place] Eosinophils (Bld) [#/Vol] 0.13 10*3/uL Normal <0.46 [facility] Comment on above: Order Comment: Speci men Type: BLOOD SPECIMENOrdering Facility: [facility] Address: [address] [place] [address] Performed By: #### 5 7021-8 ####[facility] [id number] [address] [place] Eosinophils/100 WBC (Bld) 1.3 % Normal [facility] Comment on above: Order Comment: Speci men Type: BLOOD SPECIMENOrdering Facility: [facility] Address: [address] [place] [address] Performed By: #### 5 7021-8 ####[facility] [id number] [address] [place] Erythrocyte distribution width (RBC) [Ratio] 14.0 % Normal 11.5-15.0 [facility] Comment on above: Order Comment: Speci men Type: BLOOD SPECIMENOrdering Facility: [facility] Address: [address] [place] [address] Performed By: #### 5 7021-8 ####[facility] LABORATORYCLIA [id number] [address] [place] Hematocrit (Bld) [Volume fraction] 40.0 % Normal 36.0-46.0 [facility] Comment on above: Order Comment: Speci men Type: BLOOD SPECIMENOrdering Facility: [facility] Address: [address] [place] [address] Performed By: #### 5 7021-8 ####[facility] LABORATORYCLIA [id number] [place] [address] [place] Hemoglobin (Bld) [Mass/Vol] 12.9 g/dL Normal 11.5-15.5 [facility] Comment on above: Order Comment: Speci men Type: BLOOD SPECIMENOrdering Facility: [facility] Address: [address] [place] [address] Performed By: #### 5 7021-8 ####[facility] LABORATORYCLIA [id number] [place] [address] [place] Immature granulocytes (Bld) [#/Vol] 0.05 10*3/uL Normal <0.10 [facility] Comment on above: Order Comment: Speci men Type: BLOOD SPECIMENOrdering Facility: [facility] Address: [address] [place] [address] Performed By: #### 5 7021-8 ####[facility] LABORATORYCLIA [id number] [place] [address] [place] Immature granulocytes/100 WBC (Bld) 0.5 % Normal [facility] Comment on above: Order Comment: Speci men Type: BLOOD SPECIMENOrdering Facility: [facility] Address: [address] [place] [address] Performed By: #### 5 7021-8 ####[facility] LABORATORYCLIA [id number] [place] [address] [place] Lymphocytes (Bld) [#/Vol] 1.64 10*3/uL Normal 1.00-4.00 [facility] Comment on above: Order Comment: Speci men Type: BLOOD SPECIMENOrdering Facility: [facility] Address: [address] [place] [address] Performed By: #### 5 7021-8 ####[facility] LABORATORYCLIA [id number] [place] [address] [place] [facility] [place] Lymphocytes/100 WBC (Bld) 15.9 % Normal [facility] Comment on above: Order Comment: Speci men Type: BLOOD SPECIMENOrdering Facility: [facility] Address: [address] [place] [address] Performed By: #### 5 7021-8 ####[facility] LABORATORYCLIA [id number] [address] MCH (RBC) [Entitic mass] 29.9 pg Normal 26.0-34.0 [facility] Comment on above: Order Comment: Speci men Type: BLOOD SPECIMENOrdering Facility: [facility] Address: [address] [place] [address] Performed By: #### 5 7021-8 ####[facility] LABORATORYCLIA [id number] [address] MCHC (RBC) [Mass/Vol] 32.3 g/dL Normal 30.5-36.0 [facility] Comment on above: Order Comment: Speci men Type: BLOOD SPECIMENOrdering Facility: [facility] Address: [address] [place] [address] Performed By: #### 5 7021-8 ####[facility] LABORATORYCLIA [id number] [address] MCV (RBC) [Entitic vol] 92.6 fL Normal 80.0-100.0 [facility] Comment on above: Order Comment: Speci men Type: BLOOD SPECIMENOrdering Facility: [facility] Address: [address] [place] [address] Performed By: #### 5 7021-8 ####[facility] LABORATORYCLIA [id number] [address] Monocytes (Bld) [#/Vol] 0.81 10*3/uL Normal <0.87 [facility] Comment on above: Order Comment: Speci men Type: BLOOD SPECIMENOrdering Facility: [facility] Address: [address] [place] [address] Performed By: #### 5 7021-8 ####[facility] LABORATORYCLIA [id number] [address] Monocytes/100 WBC (Bld) 7.9 % Normal [facility] Comment on above: Order Comment: Speci men Type: BLOOD SPECIMENOrdering Facility: [facility] Address: [address] [place] [address] Performed By: #### 5 7021-8 ####[facility] LABORATORYCLIA [id number] [place] [address] [place] Neutrophils (Bld) [#/Vol] 7.64 10*3/uL High 1.45-7.50 [facility] Comment on above: Order Comment: Speci men Type: BLOOD SPECIMENOrdering Facility: [facility] Address: [address] [place] [address] Performed By: #### 5 7021-8 ####[facility] LABORATORYCLIA [id number] [address] [place] Neutrophils/100 WBC (Bld) 74.1 % Normal [facility] Comment on above: Order Comment: Speci men Type: BLOOD SPECIMENOrdering Facility: [facility] Address: [address] [place] [address] Performed By: #### 5 7021-8 ####[facility] LABORATORYCLIA [id number] [place] [address] [place] Nucleated RBC (Bld) [#/Vol] 10*3/uL Normal <0.01 [facility] Comment on above: Order Comment: Speci men Type: BLOOD SPECIMENOrdering Facility: [facility] Address: [address] [place] [address] Performed By: #### 5 7021-8 ####[facility] LABORATORYCLIA [id number] [address] [place] Nucleated RBC/100 WBC (Bld) [Ratio] 0.0 /100 WBC Normal [facility] Comment on above: Order Comment: Speci men Type: BLOOD SPECIMENOrdering Facility: [facility] Address: [address] [place] [address] Performed By: #### 5 7021-8 ####[facility] LABORATORYCLIA [id number] [place] [address] [place] Platelet mean volume (Bld) [Entitic vol] 9.8 fL Normal 9.0-12.7 [facility] Comment on above: Order Comment: Speci men Type: BLOOD SPECIMENOrdering Facility: [facility] Address: [address] [place] [address] Performed By: #### 5 7021-8 ####[facility] LABORATORYCLIA [id number] [address] Platelets (Bld) [#/Vol] 218 10*3/uL Normal 150-400 [facility] Comment on above: Order Comment: Speci men Type: BLOOD SPECIMENOrdering Facility: [facility] Address: [address] [place] [address] Performed By: #### 5 7021-8 ####[facility] LABORATORYCLIA [id number] [address] [place] RBC (Bld) [#/Vol] 4.32 10*6/uL Normal 3.90-5.20 [facility] Comment on above: Order Comment: Speci men Type: BLOOD SPECIMENOrdering Facility: [facility] Address: [address] [place] [address] Performed By: #### 5 7021-8 ####[facility] LABORATORYCLIA [id number] [address] WBC (Bld) [#/Vol] 10.30 10*3/uL Normal 3.70-11.00 [facility] Comment on above: Order Comment: Speci men Type: BLOOD SPECIMENOrdering Facility: [facility] Address: [address] [place] [address] Performed By: #### 5 7021-8 ####TR[facility] LABORATORYCLIA [id number] [address] CNPNon 03-23-2024 CNPN Telephone (FAMPWS) -- ANAYA DE LA O ([id number]) 1940 [employer] Date Time Provider Department 03/23/24 EDENILSON NICHOLSON During your visit today, we recorded the following information about you: Hilaria Cifuentes LPN 03/23/2024 12:00 PM Signed Pt called to reports she went to [facility] today 03-23-24 due to left lower side pain. Pt home now and not urinating list she normally does. Pt getting fluids in but not putting out urine.. Pt concerned. Pt also has been scheduled for ER FU on 03/25/24. Please review and advise pt regarding urination. OSKAR Vega Alyson Taylor, APRN.KEVIN 03/23/2024 12:33 PM Signed Exactly how [...] MS Does not take Naprosyn or Ibuprofen [facility] 9-10 May 27, 2019 Patient currently [...] syndrome [G56.00] more content not included)... Normal [facility] CT ABD/PEL W IVCONon 025 CT ABD/PEL W IVCON * * *Final Report* * * DATE OF EXAM: Mar 23 2024 2:35AM [facility] 0530 - CT ABD/PEL W IVCON / [...] process. Stable cystic lesion within the pancreas. Medical Staff Manager: JAIME Transcribe Date/Time: Mar 23 2024 3:38A Dictated by : DARREN MARSH MD This examination was interpreted and the report reviewed and electronically signed by: DARREN MARSH MD on Mar 23 2024 3:45AM EST [id number] Normal [facility] Comprehensive metabolic 2000 panelon 03-23-2024 Albumin [Mass/Vol] 3.8 g/dL Low 3.9-4.9 [facility] Comment on above: Order Comment: Speci men Type: BLOOD SPECIMENOrdering Facility: [facility] Address: [address] [place] [address] Performed By: #### 2 4323-8, 3040-3 ####TR[facility] LABORATORYCLIA [id number] [address] OF [facility] ALP [Catalytic activity/Vol] 136 U/L High 34-123 [facility] Comment on above: Order Comment: Speci men Type: BLOOD SPECIMENOrdering Facility: [facility] Address: [address] [place] [address] Performed By: #### 2 4323-8, 3040-3 ####[facility] LABORATORYCLIA [id number] [address] ALT [Catalytic activity/Vol] 25 U/L Normal 7-38 [facility] Comment on above: Order Comment: Speci men Type: BLOOD SPECIMENOrdering Facility: [facility] Address: [address] [place] [address] Performed By: #### 2 4323-8, 3040-3 ####[facility] LABORATORYCLIA [id number] [place] [address] [place] Anion gap [Moles/Vol] 8 mmol/L Normal 8-15 [facility] Comment on above: Order Comment: Speci men Type: BLOOD SPECIMENOrdering Facility: [facility] Address: [address] [place] [address] Performed By: #### 2 4323-8, 3040-3 ####[facility] LABORATORYCLIA [id number] [place] [address] [place] AST [Catalytic activity/Vol] 28 U/L Normal 13-35 [facility] Comment on above: Order Comment: Speci men Type: BLOOD SPECIMENOrdering Facility: [facility] Address: [address] [place] [address] Performed By: #### 2 4323-8, 0-3 ####[facility] LABORATORYCLIA [id number] [place] [address] [place] Bilirubin [Mass/Vol] 0.3 mg/dL Normal 0.2-1.3 [facility] Comment on above: Order Comment: Speci men Type: BLOOD SPECIMENOrdering Facility: [facility] Address: [address] [place] [address] Performed By: #### 2 4323-8, 3040-3 ####[facility] LABORATORYCLIA [id number] [place] [address] [place] Calcium [Mass/Vol] 9.3 mg/dL Normal 8.5-10.2 [facility] Comment on above: Order Comment: Speci men Type: BLOOD SPECIMENOrdering Facility: [facility] Address: [address] [place] [address] Performed By: #### 2 4323-8, 3040-3 ####[facility] LABORATORYCLIA [id number] [place] [address] [place] Chloride [Moles/Vol] 102 mmol/L Normal 98-107 [facility] Comment on above: Order Comment: Speci men Type: BLOOD SPECIMENOrdering Facility: [facility] Address: [address] [place] [address] Performed By: #### 2 4323-8, 3040-3 ####[facility] LABORATORYCLIA [id number] [place] [address] [place] CO2 [Moles/Vol] 28 mmol/L Normal 22-30 [facility] Comment on above: Order Comment: Speci men Type: BLOOD SPECIMENOrdering Facility: [facility] Address: [address] [place] [address] Performed By: #### 2 4323-8, 0-3 ####[facility] LABORATORYCLIA [id number] [place] [address] [place] Creatinine [Mass/Vol] 0.64 mg/dL Normal 0.58-0.96 [facility] Comment on above: Order Comment: Speci men Type: BLOOD SPECIMENOrdering Facility: [facility] Address: [address] [place] [address] Performed By: #### 2 4323-8, 3039-3 ####[facility] LABORATORYCLIA [id number] [address] OF [facility] Creatinine and Glomerular filtration rate.predicted panel (S/P/Bld) 87 mL/min/1.73m??? Normal >=60 [facility] Comment on above: Order Comment: Speci men Type: BLOOD SPECIMENOrdering Facility: [facility] Address: [address] [place] [address] Result Comment: Julianna mated Glomerular Filtration Rate [...] actual GFR. Performed By: #### 2 4323-8, 3040-3 ####[facility] LABORATORYCLIA [id number] [place] [address] [place] Glucose [Mass/Vol] 114 mg/dL High 74-99 [facility] Comment on above: Order Comment: Speci nadia Type: BLOOD SPECIMENOrdering Facility: [facility] Address: [address] [id number] Result Comment: The [place] Diabetes Association (ADA) provides guidance for cutoff [...] Standards of Medical Care in Diabetes 2016, [employer] Diabetes Association. Diabetes Care. 2016.39(Suppl 1). Performed By: #### 2 4323-8, 3040-3 ####[facility] LABORATORYCLIA [id number] [place] [address] [place] Potassium [Moles/Vol] 4.0 mmol/L Normal 3.7-5.1 [facility] Comment on above: Order Comment: Wellington zuniga Type: BLOOD SPECIMENOrdering Facility: [facility] Address: [address] [place] [address] Performed By: #### 2 4323-8, 3040-3 ####[facility] LABORATORYCLIA [id number] [place] [id number] [place] Protein [Mass/Vol] 6.3 g/dL Normal 6.3-8.0 [facility] Comment on above: Order Comment: Wellington zuniga Type: BLOOD SPECIMENOrdering Facility: [facility] Address: [address] [id number] Performed By: #### 2 4323-8, 3040-3 ####[facility] LABORATORYCLIA [id number] [place] [address] [place] Sodium [Moles/Vol] 138 mmol/L Normal 136-144 [facility] Comment on above: Order Comment: Wellington nadia Type: BLOOD SPECIMENOrdering Facility: [facility] Address: [address] [place] [address] Performed By: #### 2 4323-8, 3040-3 ####TRONA LABORATORYCLIA [id number] [place] [address] [facility] Urea nitrogen [Mass/Vol] 7 mg/dL Normal 7- [facility] Comment on above: Order Comment: Speci men Type: BLOOD SPECIMENOrdering Facility: [facility] Address: [facility] [place] [address] Performed By: #### 2 4323-8, 3040-3 ####TR[facility] LABORATORYCLIA [id number] [place] [address] [facility] [place] ED NOTEon 03-23-2024 ED NOTE HNO ID: [id number] Author: FILIPE GARCIA RN Service: ? Author Type: Registered Nurse Type: ED Notes Filed: 03/23/2024 04:38 Note Text: PT discharge instructions reviewed Pt advised to follow up as needed Normal [facility] ED PROV NOTEon 03-23-2024 ED PROV NOTE HNO ID: [id number] Author: MARGARET MENDOZA DO Service: Emergency Medicine Author Type: Physician Type: ED Provider Notes Filed: 03/23/2024 04:30 Note Text: ED Provider Note Patient Name: Anaya De La O : 1940 SERVICE DATE: 03/23/24 History Patient [...] to d (more content not included)... Normal [facility] Lipase SerPl-cCncon 03-23-19 25 Lipase [Catalytic activity/Vol] 32 U/L Normal 16-61 [facility] Comment on above: Order Comment: Speci men Type: BLOOD SPECIMENOrdering Facility: [facility] Address: [address] [place] [address] Performed By: #### 2 4323-8, 3040-3 ####TR[facility] LABORATORYCLIA [id number] [place] [address] [place] Urinalysis complete panel (U )on 03-23-2024 Bilirubin Ql (U) Negative Normal Negative [facility] Comment on above: Order Comment: Speci men Type: URINE SPECIMENOrdering Facility: [facility] Address: [address] [place] [address] Performed By: #### 2 4356-8 ####TR[facility] LABORATORYCLIA [id number] [place] [address] [place] Clarity (Unsp spec) Clear Normal Clear [facility] Comment on above: Order Comment: Speci men Type: URINE SPECIMENOrdering Facility: [facility] Address: [address] [place] [address] Performed By: #### 2 4356-8 ####[facility] LABORATORYCLIA [id number] [place] [address] [place] Color (U) Yellow Normal Yellow [facility] Comment on above: Order Comment: Speci men Type: URINE SPECIMENOrdering Facility: [facility] Address: [address] [place] [address] Performed By: #### 2 4356-8 ####[facility] LABORATORYCLIA [id number] [place] [address] [place] Epithelial cells LM.HPF (Urine sed) [#/Area] Few Normal [facility] Comment on above: Order Comment: Speci men Type: URINE SPECIMENOrdering Facility: [facility] Address: [address] [place] [address] Performed By: #### 2 4356-8 ####[facility] LABORATORYCLIA [id number] [place] [address] [place] Glucose Test strip (U) [Mass/Vol] Negative Normal Negative [facility] Comment on above: Order Comment: Speci men Type: URINE SPECIMENOrdering Facility: [facility] Address: [address] [place] [address] Performed By: #### 2 4356-8 ####[facility] LABORATORYCLIA [id number] [place] [address] [place] Hemoglobin Ql (U) Negative Normal Negative [facility] Comment on above: Order Comment: Speci men Type: URINE SPECIMENOrdering Facility: [facility] Address: [address] [place] [address] Performed By: #### 2 4356-8 ####[facility] LABORATORYCLIA [id number] [place] [address] [place] Ketones Ql (U) Negative Normal Negative [facility] Comment on above: Order Comment: Speci men Type: URINE SPECIMENOrdering Facility: [facility] Address: [address] [place] [address] Performed By: #### 2 4356-8 ####[facility] LABORATORYCLIA [id number] [address] Leukocyte esterase Test strip Ql (U) Negative Normal Negative [facility] Comment on above: Order Comment: Speci men Type: URINE SPECIMENOrdering Facility: [facility] Address: [address] [place] [address] Performed By: #### 2 4356-8 ####[facility] LABORATORYCLIA [id number] [address] [place] Nitrite Ql (U) Negative Normal Negative [facility] Comment on above: Order Comment: Speci men Type: URINE SPECIMENOrdering Facility: [facility] Address: [address] [place] [address] Performed By: #### 2 4356-8 ####[facility] LABORATORYCLIA [id number] [address] [place] pH (U) 8.0 [pH] Normal 5.0-8.0 [facility] Comment on above: Order Comment: Speci men Type: URINE SPECIMENOrdering Facility: [facility] Address: [address] [place] [address] Performed By: #### 2 4356-8 ####[facility]ST[facility] LABORATORYCLIA [id number] [address] Protein (U) [Mass/Vol] Negative Normal Negative [facility] Comment on above: Order Comment: Speci men Type: URINE SPECIMENOrdering Facility: [facility] Address: [address] [place] [address] Performed By: #### 2 4356-8 ####[facility] LABORATORYCLIA [id number] [place] [address] [place] RBC LM.HPF (Urine sed) [#/Area] 0-3 /HPF Normal 0-3 /HPF [facility] Comment on above: Order Comment: Speci men Type: URINE SPECIMENOrdering Facility: [facility] Address: [address] [place] [address] Performed By: #### 2 4356-8 ####TRONA LABORATORYCLIA [id number] [address] Specific gravity (U) [Rel density] 1.010 Normal 1.005-1.030 [facility] Comment on above: Order Comment: Speci men Type: URINE SPECIMENOrdering Facility: [facility] Address: [address] [place] [address] Performed By: #### 2 4356-8 ####TRONA LABORATORYCLIA [id number] [address] [place] Urobilinogen Ql (U) 0.2 EU/dL Normal 0.2-1.0 EU/dL [facility] Comment on above: Order Comment: Speci men Type: URINE SPECIMENOrdering Facility: [facility] Address: [address] [place] [address] Performed By: #### 2 4356-8 ####TRONA LABORATORYCLIA [id number] [address] [place] WBC LM.HPF (Urine sed) [#/Area] 0-5 /HPF Normal 0-5 /HPF [facility] Comment on above: Order Comment: Speci men Type: URINE SPECIMENOrdering Facility: [facility] Address: [address] [place] [address] Performed By: #### 2 4356-8 ####[facility] CENTERCLIA [id number] [address] [place] CBC W/Diff, Automatedon 12-0 Absolute Lymph 2.00 X10 3/uL Normal 0.83-4.51 [facility] Comment on above: Performed By: #### L 100.0100, L500.4050 #### [facility] [address] [facility] [place], [address] Absolute Neut 5.5 X10 3/uL Normal 2.0-7.7 [facility] Comment on above: Performed By: #### L 100.0100, L500.4050 #### [facility] [address] [place], [address] Basophils/100 WBC (Bld) 0.6 % Normal 0-1 [facility] Comment on above: Performed By: #### L 100.0100, L500.4050 #### [facility] [address] [place], [address] Eosinophils/100 WBC (Bld) 2.1 % Normal 0-5 [facility] Comment on above: Performed By: #### L 100.0100, L500.4050 #### [facility] [address] [place], [address] Erythrocyte distribution width (RBC) [Ratio] 15.0 % High 11.6-14.6 [facility] Comment on above: Performed By: #### L 100.0100, L500.4050 #### [facility] [address] [place], [address] Hematocrit (Bld) [Volume fraction] 39.7 % Normal 37-47 [facility] Comment on above: Performed By: #### L 100.0100, L500.4050 #### [facility] [address] [place], [address] Hemoglobin (Bld) [Mass/Vol] 12.9 g/dL Normal 12.0-15.0 [facility] Comment on above: Performed By: #### L 100.0100, L500.4050 #### [facility] [address] [place], [address] IG% 0.700 Normal 0.0-0.9 [facility] Comment on above: Result Comment: IG% - Immature Granulocytes (promyelocytes, myelocytes and metamyelocytes) > 1% indicates that a LEFT SHIFT is Present. Performed By: #### L 100.0100, L500.4050 #### [facility] [address] [place], [address] Lymphocytes/100 WBC (Bld) 22.9 % Normal 19-41 [facility] Comment on above: Performed By: #### L 100.0100, L500.4050 #### [facility] [address] [place], [address] MCH (RBC) [Entitic mass] 29.9 pg Normal 27.0-32.0 [facility] Comment on above: Performed By: #### L 100.0100, L500.4050 #### [facility] [address] [place], [address] MCHC (RBC) [Mass/Vol] 32.5 g/dL Normal 32-36 [facility] Comment on above: Performed By: #### L 100.0100, L500.4050 #### [facility] [address] [place], [address] MCV (RBC) [Entitic vol] 91.9 fL Normal 81-99 [facility] Comment on above: Performed By: #### L 100.0100, L500.4050 #### [facility] [address] [place], [address] Monocytes/100 WBC (Bld) 10.6 % High 0-10 [facility] Comment on above: Performed By: #### L 100.0100, L500.4050 #### [facility] [address] [place], [address] Neutrophils/100 WBC (Bld) 63.1 % Normal 47-70 [facility] Comment on above: Performed By: #### L 100.0100, L500.4050 #### [facility] [address] [place], [address] Nucleated RBC (Bld) [#/Vol] 0 10*3/uL Normal 0-5 [facility] Comment on above: Performed By: #### L 100.0100, L500.4050 #### [facility] [address] [place], [address] Platelet mean volume (Bld) [Entitic vol] 11.1 fL Normal 6.2-12.0 [facility] Comment on above: Performed By: #### L 100.0100, L500.4050 #### [facility] [address] [place], [address] Platelets (Bld) [#/Vol] 196 10*3/uL Normal 150-450 [facility] Comment on above: Performed By: #### L 100.0100, L500.4050 #### [facility] [address] [place], [address] RBC (Bld) [#/Vol] 4.32 10*6/uL Normal 4.2-5.4 [facility] Comment on above: Performed By: #### L 100.0100, L500.4050 #### [facility] [address] [place], [address] RDW SD 50.1 fl High 35.1-43.9 [facility] Comment on above: Performed By: #### L 100.0100, L500.4050 #### [facility] [address] [place], [address] WBC (Bld) [#/Vol] 8.7 10*3/uL Normal 4.4-11.0 [facility] Comment on above: Performed By: #### L 100.0100, L500.4050 #### [facility] [address] [place], [address] Comprehensive Metabolic Prof [facility] 02-05-2024 Albumin [Mass/Vol] 3.1 g/dL Low 3.2-5.0 [facility] Comment on above: Performed By: #### L 100.0100, L500.4050 #### [facility] [address] [place], [address] Albumin/Globulin [Mass ratio] 1.0 {ratio} Normal 0.9-2.4 [facility] Comment on above: Performed By: #### L 100.0100, L500.4050 #### [facility] [address] [place], [address] ALK P 126 U/L High 45-117 [facility] Comment on above: Performed By: #### L 100.0100, L500.4050 #### [facility] [address] [place], [address] ALT [Catalytic activity/Vol] 28 U/L Normal 13-56 [facility] Comment on above: Performed By: #### L 100.0100, L500.4050 #### [facility] [address] [place], [address] AST [Catalytic activity/Vol] 24 U/L Normal 15-37 [facility] Comment on above: Performed By: #### L 100.0100, L500.4050 #### [facility] [address] [place], [address] Bilirubin [Mass/Vol] 0.60 mg/dL Normal 0.20-1.00 [facility] Comment on above: Result Comment: For patients on eltrombopag therapy, use of Dimension [place] TBIL is not recommended. Performed By: #### L 100.0100, L500.4050 #### [facility] [address] [place], [address] BUN/CRE 21.7 RATIO High 10-20 [facility] Comment on above: Performed By: #### L 100.0100, L500.4050 #### [facility] [address] [place], [address] CA,Total 9.0 mg/dL Normal 8.5-10.1 [facility] Comment on above: Performed By: #### L 100.0100, L500.4050 #### [facility] [address] [place], [address] Chloride [Moles/Vol] 106 mmol/L Normal 98-107 [facility] Comment on above: Performed By: #### L 100.0100, L500.4050 #### [facility] [address] [place], [address] CO2 [Moles/Vol] 30.0 mmol/L Normal 21.0-32.0 [facility] Comment on above: Performed By: #### L 100.0100, L500.4050 #### [facility] [address] [place], [address] Creatinine [Mass/Vol] 0.60 mg/dL Normal 0.55-1.02 [facility] Comment on above: Result Comment: The validity of the calculated GFR GFRAA in patients over 70 years has not been determined. Clinical correlation is essential. Performed By: #### L 100.0100, L500.4050 #### [facility] [address] [place], [address] EST GFR - AA 123 mL/min Normal >60 [facility] Comment on above: Result Comment: Afri can Irish GFR Calc Performed By: #### L 100.0100, L500.4050 #### [facility] [address] [place], [address] GAP 4 Low 5-15 [facility] Comment on above: Performed By: #### L 100.0100, L500.4050 #### [facility] [address] [place], [address] GFR/1.73 sq M.predicted among non-blacks MDRD (S/P/Bld) [Vol rate/Area] 101 mL/min/{1.73_m2} Normal >60 [facility] Comment on above: Result Comment: Non- GFR Calc Performed By: #### L 100.0100, L500.4050 #### [facility] [address] [place], [address] Globulin (S) [Mass/Vol] 3.1 g/dL Normal 2.2-4.2 [facility] Comment on above: Performed By: #### L 100.0100, L500.4050 #### [facility] [address] [place], [address] Glucose [Mass/Vol] 96 mg/dL Normal 74-106 [facility] Comment on above: Performed By: #### L 100.0100, L500.4050 #### [facility] [address] [place], [address] Potassium [Moles/Vol] 4.2 mmol/L Normal 3.5-5.1 [facility] Comment on above: Performed By: #### L 100.0100, L500.4050 #### [facility] [address] [place], [address] Sodium [Moles/Vol] 139 mmol/L Normal 136-145 [facility] Comment on above: Performed By: #### L 100.0100, L500.4050 #### [facility] [address] [place], [address] T PROT 6.2 g/dL Low 6.4-8.2 [facility] Comment on above: Performed By: #### L 100.0100, L500.4050 #### [facility] [address] [place], [address] Urea nitrogen [Mass/Vol] 13 mg/dL Normal 7-18 [facility] Comment on above: Performed By: #### L 100.0100, L500.4050 #### [facility] [address] [place], [address] CNOVon 01-25-2024 CNOV Office Visit (UCWSTR ) -- ANAYA DE LA O ([id number]) 1940 [address] [place] Date Time Provider Department 01/25/24 11:30 AM AMERICA MENDEZ [facility] During your visit today, we recorded the following information about you: Temperature Pulse Respiration Blood pressure 97.5 degrees 63/minute 18/minute 146/82 Weight 55 kg America Mendez, ENGINE HEAD REPAIRER.IS ARCHITECT 01/25/2024 11:51 AM Signed This note was created using [employer]. Subjective Anaya De La O is a 83 year old female. HPI [...] Discussed with patient that she could use srnf-xmz-ygltcaw numbing medication as needed for discomfort. I recommended that she does follow-up closely with either her PCP or dentist and return if symptoms seem to be worsening. America Mendez APRN.IS ARCHITECT Allergies As of Date: 01/25/2024 Noted Allergy [...] A WEEK FOR 2 WEEKS - fluocinolone-skin ojjba92-kajs 0.01 % kit Apply to affected area [...] MS Does not take Naprosyn or Ibuprofen [facility] -May 27, 2019 Patient currently taking [...] quadrant [ (more content not included)... [facility] ANAYA DE LA O ([id number]) 1940 [address] [place]* Date Time Provider Department 01/23/24 EDENILSON NICHOLSON [facility] During your visit today, we recorded the following information about you: Elizabeth Perez RN 01/23/2024 4:14 PM Addendum Patient calling to let PCP know that she saw Dr. Gandhi @ [facility] today for psoriasis. Dr. Gandhi prescribed Otezla 10 mg x 4 days, 20 mg x 4 days then 30 mg daily. She discontinued Methotrexate. ROBERT Coto Jordan L, 01/24/2024 9:53 AM Signed Noted Allergies As [...] A WEEK FOR 2 WEEKS - fluocinolone-skin teuax63-tves 0.01 % kit Apply to affected area [...] MS Does not take Naprosyn or Ibuprofen [facility] -May 27, 2019 Patient currently taking [...] Chronic rhiniti (more content not included)... Normal [facility] CNOVon 01-22-2024 CNOV Office Visit (FAMPWS ) -- ANAYA DE LA O ([id number]) 1940 [address] [place]* Date Time Provider Department 01/22/24 11:00 AM EDENILSON NICHOLSON During your visit today, we recorded the following information about you: Temperature Pulse Respiration Blood pressure 96.2 degrees 60/minute 16/minute 128/72 Weight 54.4 kg Edenilson Nicholson, DO 01/22/2024 11:06 AM Signed Ketoconazole cream on nail with a bandaid daily If nail doesn't improve, then need to consider doing a Lamisil pill daily Edenilson Nicholson, DO 01/22/2024 11:47 AM Signed CC: Anaya De La O is a 83 year old female who presents to the office for follow up HPI: Seen in office 2 weeks ago by Dunia Ray CNP as below Right heel-saw Lakshmi Snowden [...] ONCE A WEEK FOR 2 WEEKS fluocinolone-skin -dwce 0.01 % kit Apply to affected area [...] Codeine Darvocet (more content not included)... Normal [facility] -- ANAYA DE LA O ([id number]) 1940 [address] [facility]* Date Time Provider Department 01/10/24 EDENILSON NICHOLSON [facility] During your visit today, we recorded [...] then Date Reviewed: 01/09/2024 Reviewed by: Angeline Ray APRN.IS ARCHITECT - Fully Assessed Reason for Visit: Patient Question [1477] Prescriptions as of 01/15/2024 - amitriptyline (ELAVIL) 10 mg tablet Take 1 tablet by mouth daily at bedtime. - loratadine (CLARITIN) 10 mg tablet Take 1 tablet by mouth once daily. - methotrexate 2.5 mg tablet TAKE 5 TABLET(S) ORAL ONCE A WEEK START 4 TABS ONCE A WEEK FOR 2 WEEKS - fluocinolone-skin uiozr87-bhav 0.01 % kit Apply to affected area [...] MS Does not take Naprosyn or Ibuprofen [facility] -May 27, 2019 Patient currently taking [...] replacement usi (more content not included)... Normal [facility] CNCOon 01-09-2024 CNCO Letter Text Normal [facility] CNOVon 01-09-2024 CNOV Office Visit (FAMPWS ) -- ANAYA DE LA O ([id number]) 1940 [address] [place]* Date Time Provider Department 01/09/24 10:00 [facility] your visit today, we recorded the following information about you: Temperature Pulse Respiration Blood pressure 97 degrees 55/minute 16/minute 102/58 Weight 55.3 kg Angeline Ray APRN.CNP 01/13/2024 12:59 PM Signed Chief Complaint Patient presents with: Urinary Frequency Rash: R heel, warm to touch, red and swollen, saw [facility] and was prescribed Tapinarof cream, Derm took Cx- neg HPI Anaya Kauffmanephraim is a 83 year old female who presents here today for Above Complaints.. Urinary frequency-was seen in [facility] on 01/02, did not get results of urinary culture back yet. States her urinary frequency isn't any worse than it typically is, especially when she drinks a lot of water. Denies other urinary sx. Right heel-saw [facility] [place] last week, going back in a month. [...] ONCE A WEEK FOR 2 WEEKS fluocinolone-skin -rnkm 0.01 % kit Apply to affected area [...] Take 1 (more content not included)... Normal [facility] Bacteria Ur Culton 4 Bacteria identified Cx Nom (U) ORGANISM ID: 1 10,000 -<50,000 CFU/ml Mixed microbiota Insignificant colony count. No further workup. Normal [facility] Comment on above: Performed By: #### 6 30-4 ####[facility] LAB[facility] [id number] [place] [address] [place] CBC W/Diff, Automatedon 11-0 Absolute Lymph 2.24 X10 3/uL Normal 0.83-4.51 [facility] Comment on above: Performed By: #### L 500.4050, L100.0100 #### [facility] [address] [place], [address] Absolute Neut 5.2 X10 3/uL Normal 2.0-7.7 [facility] Comment on above: Performed By: #### L 500.4050, L100.0100 #### [facility] [address] [place], [address] Basophils/100 WBC (Bld) 0.5 % Normal 0-1 [facility] Comment on above: Performed By: #### L 500.4050, L100.0100 #### [facility] [address] [place], [address] Eosinophils/100 WBC (Bld) 2.0 % Normal 0-5 [facility] Comment on above: Performed By: #### L 500.4050, L100.0100 #### [facility] [address] [place], [address] Erythrocyte distribution width (RBC) [Ratio] 14.0 % Normal 11.6-14.6 [facility] Comment on above: Performed By: #### L 500.4050, L100.0100 #### [facility] [address] [place], [address] Hematocrit (Bld) [Volume fraction] 41.2 % Normal 37-47 [facility] Comment on above: Performed By: #### L 500.4050, L100.0100 #### [facility] [address] [place], [address] Hemoglobin (Bld) [Mass/Vol] 13.0 g/dL Normal 12.0-15.0 [facility] Comment on above: Performed By: #### L 500.4050, L100.0100 #### [facility] [address] [place], [address] IG% 0.800 Normal 0.0-0.9 [facility] Comment on above: Result Comment: IG% - Immature Granulocytes (promyelocytes, myelocytes and metamyelocytes) > 1% indicates that a LEFT SHIFT is Present. Performed By: #### L 500.4050, L100.0100 #### [facility] [address] [place], [address] Lymphocytes/100 WBC (Bld) 26.2 % Normal 19-41 [facility] Comment on above: Performed By: #### L 500.4050, L100.0100 #### [facility] [address] [place], [address] MCH (RBC) [Entitic mass] 29.7 pg Normal 27.0-32.0 [facility] Comment on above: Performed By: #### L 500.4050, L100.0100 #### [facility] [address] [place], [address] MCHC (RBC) [Mass/Vol] 31.6 g/dL Low 32-36 [facility] Comment on above: Performed By: #### L 500.4050, L100.0100 #### [facility] [address] [place], [address] MCV (RBC) [Entitic vol] 94.3 fL Normal 81-99 [facility] Comment on above: Performed By: #### L 500.4050, L100.0100 #### [facility] [address] [place], [address] Monocytes/100 WBC (Bld) 9.1 % Normal 0-10 [facility] Comment on above: Performed By: #### L 500.4050, L100.0100 #### [facility] [address] [place], [address] Neutrophils/100 WBC (Bld) 61.4 % Normal 47-70 [facility] Comment on above: Performed By: #### L 500.4050, L100.0100 #### [facility] [address] [place], [address] Nucleated RBC (Bld) [#/Vol] 0 10*3/uL Normal 0-5 [facility] Comment on above: Performed By: #### L 500.4050, L100.0100 #### [facility] [address] [place], [address] Platelet mean volume (Bld) [Entitic vol] 11.2 fL Normal 6.2-12.0 [facility] Comment on above: Performed By: #### L 500.4050, L100.0100 #### [facility] [address] [place], [address] Platelets (Bld) [#/Vol] 222 10*3/uL Normal 150-450 [facility] Comment on above: Performed By: #### L 500.4050, L100.0100 #### [facility] [address] [place], [address] RBC (Bld) [#/Vol] 4.37 10*6/uL Normal 4.2-5.4 [facility] Comment on above: Performed By: #### L 500.4050, L100.0100 #### [facility] [address] [place], [address] RDW SD 48.3 fl High 35.1-43.9 [facility] Comment on above: Performed By: #### L 500.4050, L100.0100 #### [facility] [address] [place], [address] WBC (Bld) [#/Vol] 8.5 10*3/uL Normal 4.4-11.0 [facility] Comment on above: Performed By: #### L 500.4050, L100.0100 #### [facility] [address] [place], [address] CNOVon 01-03-2024 CNOV Office Visit (UCWSTR ) -- ANAYA DE LA O ([id number]) 1940 [address] [place]* Date Time Provider Department 01/03/24 11:45 AM KATHRYN PEARSON [facility] During your visit today, we recorded the following information about you: Temperature Pulse Respiration Blood pressure 97.1 degrees 50/minute 18/minute 151/73 Weight 56.6 kg Kathryn Pearson, ENGINE HEAD REPAIRER.IS ARCHITECT 01/03/2024 12:24 PM Signed This note was created using [employer]. Subjective Anaya De La O is a 83 year old female. 83 [...] by the patient and the spouse. No sign language interpreter was used. PAST MEDICAL HISTORY Diagnosis Date [...] ONCE A WEEK FOR 2 WEEKS fluocinolone-skin -nxyj 0.01 % kit Apply to affected area [...] fatigue. Respirato (more content not included)... Normal [facility] Metabolic Prof rod 01-03-2024 Albumin [Mass/Vol] 3.1 g/dL Low 3.2-5.0 [facility] Comment on above: Performed By: #### L 500.4050, L100.0100 #### [facility] [address] [facility] [address] Albumin/Globulin [Mass ratio] 1.0 {ratio} Normal 0.9-2.4 [facility] Comment on above: Performed By: #### L 500.4050, L100.0100 #### [facility] [address] [place], [address] ALK P 115 U/L Normal 45-117 [facility] Comment on above: Performed By: #### L 500.4050, L100.0100 #### [facility] [address] [place], [address] ALT [Catalytic activity/Vol] 36 U/L Normal 13-56 [facility] Comment on above: Performed By: #### L 500.4050, L100.0100 #### [facility] [address] [place], [address] AST [Catalytic activity/Vol] 22 U/L Normal 15-37 [facility] Comment on above: Performed By: #### L 500.4050, L100.0100 #### [facility] [address] [place], [address] Bilirubin [Mass/Vol] 0.50 mg/dL Normal 0.20-1.00 [facility] Comment on above: Result Comment: For patients on eltrombopag therapy, use of Dimension [place] TBIL is not recommended. Performed By: #### L 500.4050, L100.0100 #### [facility] [address] [place], [address] BUN/CRE 19.5 RATIO Normal 10-20 [facility] Comment on above: Performed By: #### L 500.4050, L100.0100 #### [facility] [address] [place], [address] CA,Total 9.1 mg/dL Normal 8.5-10.1 [facility] Comment on above: Performed By: #### L 500.4050, L100.0100 #### [facility] [address] [place], [address] Chloride [Moles/Vol] 105 mmol/L Normal 98-107 [facility] Comment on above: Performed By: #### L 500.4050, L100.0100 #### [facility] [address] [place], [address] CO2 [Moles/Vol] 30.0 mmol/L Normal 21.0-32.0 [facility] Comment on above: Performed By: #### L 500.4050, L100.0100 #### [facility] [address] [place], [address] Creatinine [Mass/Vol] 0.62 mg/dL Normal 0.55-1.02 [facility] Comment on above: Result Comment: The validity of the calculated GFR GFRAA in patients over 70 years has not been determined. Clinical correlation is essential. Performed By: #### L 500.4050, L100.0100 #### [facility] [address] [place], [address] EST GFR - AA 119 mL/min Normal >60 [facility] Comment on above: Result Comment: Afri can Irish GFR Calc Performed By: #### L 500.4050, L100.0100 #### [facility] [address] [place], [address] GAP 3 Low 5-15 [facility] Comment on above: Performed By: #### L 500.4050, L100.0100 #### [facility] [address] [place], [address] GFR/1.73 sq M.predicted among non-blacks MDRD (S/P/Bld) [Vol rate/Area] 98 mL/min/{1.73_m2} Normal >60 [facility] Comment on above: Result Comment: Non- GFR Calc Performed By: #### L 500.4050, L100.0100 #### [facility] [address] [place], [address] Globulin (S) [Mass/Vol] 3.1 g/dL Normal 2.2-4.2 [facility] Comment on above: Performed By: #### L 500.4050, L100.0100 #### [facility] [address] [place], [address] Glucose [Mass/Vol] 98 mg/dL Normal 74-106 [facility] Comment on above: Performed By: #### L 500.4050, L100.0100 #### [facility] [address] [place], [address] Potassium [Moles/Vol] 4.6 mmol/L Normal 3.5-5.1 [facility] Comment on above: Performed By: #### L 500.4050, L100.0100 #### [facility] [address] [place], [address] Sodium [Moles/Vol] 138 mmol/L Normal 136-145 [facility] Comment on above: Performed By: #### L 500.4050, L100.0100 #### [facility] [address] [place], [address] T PROT 6.2 g/dL Low 6.4-8.2 [facility] Comment on above: Performed By: #### L 500.4050, L100.0100 #### [facility] [address] [place], [address] Urea nitrogen [Mass/Vol] 12 mg/dL Normal 7-18 [facility] Comment on above: Performed By: #### L 500.4050, L100.0100 #### [facility] [address] [place], [address] UA DIP, URINE (POC)on 2023 BILIRUBIN UA (POCT) Negative Negative [facility] CLARITY UA (POCT) Clear [facility] COLOR UA (POCT) Yellow [facility] GLUCOSE UA (POCT) Negative Negative mg/dL [facility] Hemoglobin Ql (U) Negative Negative [facility] Interpretation and review of laboratory results Abnormal [facility] KETONE UA (POCT) Negative Negative mg/dL [facility] LEUKOCYTES UA (POCT) Negative Negative [facility] NITRITE UA (POCT) Negative Negative [facility] PH UA (POCT) 8.5 Abnormal 4.5 - 8.0 [facility] Protein Ql (U) Negative Negative mg/dL [facility] SPECIFIC GRAVITY UA (POCT) 1.015 1.005 - 1.030 [facility] UROBILINOGEN UA (POCT) 0.2 Jacqueline l E.U./dL [facility] Location:[facility] [place], [facility], [place], [address] [facility] POINT OF CARE [facility] Bacteria Ur Culton 4 Bacteria identified Cx Nom (U) ORGANISM ID: 1 <10,000 CFU/ml Normal urogenital ji Normal [facility] Comment on above: Performed By: #### 6 30-4 ####[facility] ANATOLIY [id number] [place] [id number] [place] CNOVon 12-24-2023 CNOV Office Visit (UCWSTR ) -- ANAYA DE LA O ([id number]) 1940 [address] [place]* Date Time Provider Department 12/24/23 5:15 PM ABIGAIL BALDERAS [facility] During your visit today, we recorded the following information about you: Temperature Pulse Respiration Blood pressure 98.5 degrees 60/minute 16/minute 120/80 Weight 56.3 kg Abigail Balderas APRN.IS ARCHITECT 12/24/2023 5:54 PM Signed Subjective HPI Anaya Cristhian De La O is a 83 year old female who [...] ], and Zoloft [Sertraline Hcl] MEDICATIONS fluocinolone-skin zrgzo09-mwlk 0.01 % kit Apply to affected area [...] Problem Relati (more content not included)... [facility] ([facility]) -- ANAYA DE LA O ([id number]) 1940 [address] [place]* Date Time Provider Department 12/24/23 [facility] During your visit today, we recorded the [...] noted then Date Reviewed: 12/05/2023 Reviewed by: Kinag Carter APRN.IS ARCHITECT - Fully Assessed Reason for Visit: Patient Call [Other] Prescriptions as of 12/24/2023 - fluocinolone-skin gaddh76-vgsp 0.01 % kit Apply to affected area [...] MS Does not take Naprosyn or Ibuprofen [facility] 9-May 27, 2019 Patient currently taking [...] 04/08/2019 Radiculopathy, (more content not included)... Normal [facility] UA DIP, URINE (POC)on 2023 BILIRUBIN UA (POCT) Negative Negative [facility] CLARITY UA (POCT) Clear [facility] COLOR UA (POCT) Yellow [facility] GLUCOSE UA (POCT) Negative Negative mg/dL [facility] Hemoglobin Ql (U) Negative Negative [facility] KETONE UA (POCT) Negative Negative mg/dL [facility] LEUKOCYTES UA (POCT) Negative Negative [facility] NITRITE UA (POCT) Negative Negative [facility] PH UA (POCT) 7.0 4.5 - 8.0 [facility] Protein Ql (U) Negative Negative mg/dL [facility] SPECIFIC GRAVITY UA (POCT) 1.015 1.005 - 1.030 [facility] UROBILINOGEN UA (POCT) 0.2 Jacqueline l E.U./dL [facility] Location:[facility], [address] [place] [address], [place], [place], [id number] [place] [address] POINT OF CARE [facility] Ferritin SerPl-ncon 2023 Ferritin [Mass/Vol] 130.0 ng/mL Normal 14.7-205.1 [facility] Comment on above: Order Comment: Speci men Type: BLOOD SPECIMENOrdering Facility: [facility] Address: [address] [place] [address] Performed By: #### 5 0190-8, 4, 8 ####[facility] LABCLIA [id number] [place] [address] [place] Folate SerPl-ncon 12-16-19 Folate [Mass/Vol] 18.3 ng/mL Normal >4.7 [facility] Comment on above: Order Comment: Speci men Type: BLOOD SPECIMENOrdering Facility: [facility] Address: [address] [place] [address] Performed By: #### 5 0190-8, 2275-4, 8 ####[facility] LABCLIA [id number] [place] [address] [place] Iron and Iron binding capaci panelon 12-16-2023 Iron [Mass/Vol] 51 ug/dL Normal 41-186 [facility] Comment on above: Order Comment: Speci men Type: BLOOD SPECIMENOrdering Facility: [facility] Address: [address] [place] [address] Performed By: #### 5 0190-8, 2275-4, 8 ####[facility] LABCLIA [id number] [place] [address] [place] Iron binding capacity [Mass/Vol] 293 ug/dL Normal 232-386 [facility] Comment on above: Order Comment: Speci men Type: BLOOD SPECIMENOrdering Facility: [facility] Address: [address] [place] [address] Performed By: #### 5 0190-8, 2275-4, 2283-10 ####[facility] LABCLIA [id number] [address] [address] [place] Iron/TIBC [Molar ratio] 17.4 % Normal 15.0-57.0 [facility] Comment on above: Order Comment: Speci men Type: BLOOD SPECIMENOrdering Facility: [facility] Address: [address] [place] [address] Performed By: #### 5 0190-8, 4, 2283-10 ####[facility] LABCLIA [id number] [place] [id number] [place] ALLIED HEALTHon 09-23-2023 ALLIED HEALTH HNO ID: [id number] Author: SAMANTHA MCGEE CT Service: Radiology Author Type: Technologist Type: Allied Health Filed: 09/23/2023 13:55 Note Text: Radiology Service Progress Note PATIENT NAME: Anaya De La O DATE OF SERVICE: September 23, 2023 TIME: [...] PATIENT PRESENTS WITH AN IMPLANTABLE OR ATTACHED TUBE CUTTER: No RADIOLOGY DEPARTMENT: CT; Exam(s) Completed: Abdomen/Pelvis and Brain PERIPHERAL IV DATA: Inpatient: see LDA documentation SIGNED BY: GLO Del Valle September 23, 2023 1:54 PM [facility] ALLIED HEALTH HNO ID: [id number] Author: INES FERREIRA CT Service: Radiology Author Type: Technologist Type: Allied Health Filed: 09/23/2023 13:49 Note Text: Radiology Service Progress Note PATIENT NAME: Anaya De La O DATE OF SERVICE: September 23, 2023 TIME: [...] PATIENT PRESENTS WITH AN IMPLANTABLE OR ATTACHED TUBE CUTTER: No RADIOLOGY DEPARTMENT: General X-ray: Exam(s) Completed: Chest X-Ray PERIPHERAL IV DATA: Not applicable SIGNED BY: GLO Caraballo September 23, 2023 1:48 PM Normal [facility] CBC W Auto Differential pane l (Bld)on 09-23-2023 Basophils (Bld) [#/Vol] 10*3/uL Normal <0.11 [facility] Comment on above: Order Comment: Speci men Type: BLOOD SPECIMENOrdering Facility: [facility] Address: [address] [place] [address] Performed By: #### 5 7021-8 ####[facility] LABORATORYCLIA [id number] [place] [address] [place] Basophils/100 WBC (Bld) 0.4 % Normal [facility] Comment on above: Order Comment: Speci men Type: BLOOD SPECIMENOrdering Facility: [facility] Address: [address] [place] [address] Performed By: #### 5 7021-8 ####[facility]ORYCLIA [id number] [place] [address] [place] Differential cell count method Nom (Bld) Auto Normal [facility] Comment on above: Order Comment: Speci men Type: BLOOD SPECIMENOrdering Facility: [facility] Address: [address] [place] [address] Performed By: #### 5 7021-8 ####[facility]ATORYCLIA [id number] [place] [address] [place] Eosinophils (Bld) [#/Vol] 0.03 10*3/uL Normal <0.46 [facility] Comment on above: Order Comment: Speci men Type: BLOOD SPECIMENOrdering Facility: [facility] Address: [address] [place] [address] Performed By: #### 5 7021-8 ####[facility]ATORYCLIA [id number] [address] [place] Eosinophils/100 WBC (Bld) 0.5 % Normal [facility] Comment on above: Order Comment: Speci men Type: BLOOD SPECIMENOrdering Facility: [facility] Address: [address] [place] [address] Performed By: #### 5 7021-8 ####[facility]ORATORYCLIA [id number] [address] [place] Erythrocyte distribution width (RBC) [Ratio] 14.0 % Normal 11.5-15.0 [facility] Comment on above: Order Comment: Speci men Type: BLOOD SPECIMENOrdering Facility: [facility] Address: [address] [place] [address] Performed By: #### 5 7021-8 ####[facility]ORATORYCLIA [id number] [address] [place] Hematocrit (Bld) [Volume fraction] 42.2 % Normal 36.0-46.0 [facility] Comment on above: Order Comment: Speci men Type: BLOOD SPECIMENOrdering Facility: [facility] Address: [address] [place] [address] Performed By: #### 5 7021-8 ####[facility]ATORYCLIA [id number] [address] [place] Hemoglobin (Bld) [Mass/Vol] 13.9 g/dL Normal 11.5-15.5 [facility] Comment on above: Order Comment: Speci men Type: BLOOD SPECIMENOrdering Facility: [facility] Address: [address] [place] [address] Performed By: #### 5 7021-8 ####[facility]ATORYCLIA [id number] [place] [address] [place] Immature granulocytes (Bld) [#/Vol] 0.04 10*3/uL Normal <0.10 [facility] Comment on above: Order Comment: Speci men Type: BLOOD SPECIMENOrdering Facility: [facility] Address: [address] [place] [address] Performed By: #### 5 7021-8 ####[facility]ATORYCLIA [id number] [address] [place] Immature granulocytes/100 WBC (Bld) 0.7 % Normal [facility] Comment on above: Order Comment: Speci men Type: BLOOD SPECIMENOrdering Facility: [facility] Address: [address] [place] [address] Performed By: #### 5 7021-8 ####[facility]ORATORYCLIA [id number] [place] [address] [place] Lymphocytes (Bld) [#/Vol] 1.21 10*3/uL Normal 1.00-4.00 [facility] Comment on above: Order Comment: Speci men Type: BLOOD SPECIMENOrdering Facility: [facility] Address: [address] [place] [address] Performed By: #### 5 7021-8 ####[facility]ATORYCLIA [id number] [address] Lymphocytes/100 WBC (Bld) 22.0 % Normal [facility] Comment on above: Order Comment: Speci men Type: BLOOD SPECIMENOrdering Facility: [facility] Address: [address] [place] [address] Performed By: #### 5 7021-8 ####[facility] LABORATORYCLIA [id number] [place] [address] [place] MCH (RBC) [Entitic mass] 30.3 pg Normal 26.0-34.0 [facility] Comment on above: Order Comment: Speci men Type: BLOOD SPECIMENOrdering Facility: [facility] Address: [address] [place] [address] Performed By: #### 5 7021-8 ####[facility]ATORYCLIA [id number] [address] MCHC (RBC) [Mass/Vol] 32.9 g/dL Normal 30.5-36.0 [facility] Comment on above: Order Comment: Speci men Type: BLOOD SPECIMENOrdering Facility: [facility] Address: [address] [place] [address] Performed By: #### 5 7021-8 ####[facility]ORATORYCLIA [id number] [address] MCV (RBC) [Entitic vol] 92.1 fL Normal 80.0-100.0 [facility] Comment on above: Order Comment: Speci men Type: BLOOD SPECIMENOrdering Facility: [facility] Address: [address] [place] [address] Performed By: #### 5 7021-8 ####[facility]ATORYCLIA [id number] [address] Monocytes (Bld) [#/Vol] 0.49 10*3/uL Normal <0.87 [facility] Comment on above: Order Comment: Speci men Type: BLOOD SPECIMENOrdering Facility: [facility] Address: [address] [place] [address] Performed By: #### 5 7021-8 ####[facility]ATORYCLIA [id number] [address] Monocytes/100 WBC (Bld) 8.9 % Normal [facility] Comment on above: Order Comment: Speci men Type: BLOOD SPECIMENOrdering Facility: [facility] Address: [address] [place] [address] Performed By: #### 5 7021-8 ####[facility]ATORYCLIA [id number] [address] Neutrophils (Bld) [#/Vol] 3.72 10*3/uL Normal 1.45-7.50 [facility] Comment on above: Order Comment: Speci men Type: BLOOD SPECIMENOrdering Facility: [facility] Address: [address] [place] [address] Performed By: #### 5 7021-8 ####[facility]ORATORYCLIA [id number] [address] [place] Neutrophils/100 WBC (Bld) 67.5 % Normal [facility] Comment on above: Order Comment: Speci men Type: BLOOD SPECIMENOrdering Facility: [facility] Address: [address] [place] [address] Performed By: #### 5 7021-8 ####[facility]ORATORYCLIA [id number] [place] [address] [place] Nucleated RBC (Bld) [#/Vol] 10*3/uL Normal <0.01 [facility] Comment on above: Order Comment: Speci men Type: BLOOD SPECIMENOrdering Facility: [facility] Address: [address] [place] [address] Performed By: #### 5 7021-8 ####[facility]ORATORYCLIA [id number] [address] [place] Nucleated RBC/100 WBC (Bld) [Ratio] 0.0 /100 WBC Normal [facility] Comment on above: Order Comment: Speci men Type: BLOOD SPECIMENOrdering Facility: [facility] Address: [address] [place] [address] Performed By: #### 5 7021-8 ####[facility] LABORATORYCLIA [id number] [place] [address] [place] Platelet mean volume (Bld) [Entitic vol] 9.9 fL Normal 9.0-12.7 [facility] Comment on above: Order Comment: Speci men Type: BLOOD SPECIMENOrdering Facility: [facility] Address: [address] [place] [address] Performed By: #### 5 7021-8 ####[facility]ORATORYCLIA [id number] [place] [address] [place] Platelets (Bld) [#/Vol] 251 10*3/uL Normal 150-400 [facility] Comment on above: Order Comment: Speci men Type: BLOOD SPECIMENOrdering Facility: [facility] Address: [address] [place] [address] Performed By: #### 5 7021-8 ####[facility]ORATORYCLIA [id number] [address] [place] RBC (Bld) [#/Vol] 4.58 10*6/uL Normal 3.90-5.20 [facility] Comment on above: Order Comment: Speci men Type: BLOOD SPECIMENOrdering Facility: [facility] Address: [address] [place] [address] Performed By: #### 5 7021-8 ####[facility] LABORATORYCLIA [id number] [place] [id number] [place] WBC (Bld) [#/Vol] 5.51 10*3/uL Normal 3.70-11.00 [facility] Comment on above: Order Comment: Speci men Type: BLOOD SPECIMENOrdering Facility: [facility] Address: [address] [place] [address] Performed By: #### 5 7021-8 ####[facility] LABORATORYCLIA [id number] [place] [id number] [facility] OF [place] CT ABD/PEL W IVCONon 024 CT ABD/PEL W IVCON * * *Final Report* * * DATE OF EXAM: Sep 23 2023 1:57PM [facility] 0530 - CT ABD/PEL W IVCON / [...] No enlarged lymph nodes. Urinary bladder: Unremarkable Community Manager (topogram) images: No additional findings IMPRESSION: 1. 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 It appears to be similar in size to the previous MRI 2. No acute changes are seen Medical Staff Manager: [facility] HOSPITALJeovanny Transcribe Date/Time: Sep 23 2023 2:25P Dictated by : RADHA ELIAS DO This examination was interpreted and the report reviewed and electronically signed by: RADHA ELIAS DO on Sep 23 2023 2:34PM EST [id number] [facility] CT BRAIN WO IVCONon 09-23-19 CT BRAIN WO IVCON * * *Final Report* * * DATE OF EXAM: Sep 23 2023 1:57PM [facility] [id number] - CT BRAIN WO IVCON / [...] intracranial hemorrhage or other acute intracranial abnormalities Medical Staff Manager: JAIME Transcribe Date/Time: Sep 23 2023 2:02P Dictated by : RADHA ELIAS DO This examination was interpreted and the report reviewed and electronically signed by: RADHA ELIAS DO on Sep 23 2023 2:08PM EST [id number] Normal [facility] Comprehensive metabolic 2000 panelon 09-23-2023 Albumin [Mass/Vol] 4.0 g/dL Normal 3.9-4.9 [facility] Comment on above: Order Comment: Wellington zuniga Type: BLOOD SPECIMENOrdering Facility: [facility] Address: [address] [place] [address] Performed By: #### H STNT, 3040-3, , ####[facility] LABORATORYCLIA [id number] [address] STATES OF [facility] ALP [Catalytic activity/Vol] 119 U/L Normal 34-123 [facility] Comment on above: Order Comment: Wellington zuniga Type: BLOOD SPECIMENOrdering Facility: [facility] Address: [address] [place] [address] Performed By: #### H STNT, 3040-3, 98070-6, 44244-3 ####[facility] LABORATORYCLIA [id number] [place] [id number] [facility] ALT [Catalytic activity/Vol] 17 U/L Normal 7-38 [facility] Comment on above: Order Comment: Speci men Type: BLOOD SPECIMENOrdering Facility: [facility] Address: [address] [place] [address] Performed By: #### H STNT, 3040-3, 22495-1, 79404-2 ####[facility] LABORATORYCLIA [id number] [place] [address] [place] Anion gap [Moles/Vol] 11 mmol/L Normal 8-15 [facility] Comment on above: Order Comment: Speci men Type: BLOOD SPECIMENOrdering Facility: [facility] Address: [address] [place] [address] Performed By: #### H STNT, 3040-3, , 12987-5 ####[facility] LABORATORYCLIA [id number] [place] [address] [place] AST [Catalytic activity/Vol] 24 U/L Normal 13-35 [facility] Comment on above: Order Comment: Speci men Type: BLOOD SPECIMENOrdering Facility: [facility] Address: [address] [place] [address] Performed By: #### H STNT, 3040-3, , 31818-3 ####[facility] LABORATORYCLIA [id number] [place] [address] [place] Bilirubin [Mass/Vol] 0.5 mg/dL Normal 0.2-1.3 [facility] Comment on above: Order Comment: Speci men Type: BLOOD SPECIMENOrdering Facility: [facility] Address: [address] [place] [address] Performed By: #### H STNT, 3040-3, , 72279-4 ####[facility] LABORATORYCLIA [id number] [place] [address] [place] Calcium [Mass/Vol] 9.2 mg/dL Normal 8.5-10.2 [facility] Comment on above: Order Comment: Speci men Type: BLOOD SPECIMENOrdering Facility: [facility] Address: [address] [place] [address] Performed By: #### H STNT, 3040-3, 26259-7, 39428-1 ####[facility] LABORATORYCLIA [id number] [place] [address] [place] Chloride [Moles/Vol] 96 mmol/L Low 98-107 [facility] Comment on above: Order Comment: Speci men Type: BLOOD SPECIMENOrdering Facility: [facility] Address: [address] [place] [address] Performed By: #### H STNT, 3040-3, 64080-4, 39663-6 ####[facility] LABORATORYCLIA [id number] [place] [id number] [place] CO2 [Moles/Vol] 26 mmol/L Normal 22-30 [facility] Comment on above: Order Comment: Speci men Type: BLOOD SPECIMENOrdering Facility: [facility] Address: [address] [place] [address] Performed By: #### H STNT, 3040-3, , 86994-9 ####[facility] LABORATORYCLIA [id number] [address] STATES OF [facility] Creatinine [Mass/Vol] 0.60 mg/dL Normal 0.58-0.96 [facility] Comment on above: Order Comment: Speci men Type: BLOOD SPECIMENOrdering Facility: [facility] Address: [address] [place] [address] Performed By: #### H STNT, 3040-3, 18952-8, 70474-8 ####[facility] LABORATORYCLIA [id number] [address] Creatinine and Glomerular filtration rate.predicted panel (S/P/Bld) 89 mL/min/1.73m??? Normal >=60 [facility] Comment on above: Order Comment: Speci men Type: BLOOD SPECIMENOrdering Facility: [facility] Address: [address] [place] [address] Result Comment: Julianna mated Glomerular Filtration Rate [...] reflect actual GFR. Performed By: #### H ESSENCET, 3039-3, , ####[facility] LABORATORYCLIA [id number] [place] [address] [place] Glucose [Mass/Vol] 101 mg/dL High 74-99 [facility] Comment on above: Order Comment: Wellington zuniga Type: BLOOD SPECIMENOrdering Facility: [facility] Address: [address] [place], [place] [address] Result Comment: The [place] Diabetes Association (ADA) provides guidance for cutoff [...] Standards of Medical Care in Diabetes 2016, [place] Diabetes Association. Diabetes Care. 2016.39(Suppl 1). Performed By: #### H ESSENCET, 3039-3, , ####[facility] LABORATORYCLIA [id number] [place] [address] [place] Potassium [Moles/Vol] 3.7 mmol/L Normal 3.7-5.1 [facility] Comment on above: Order Comment: Wellington zuniga Type: BLOOD SPECIMENOrdering Facility: [facility] Address: [address] [place] [address] Performed By: #### H ESSENCET, 3039-3, , ####[facility] LABORATORYCLIA [id number] [place] [address] [place] Protein [Mass/Vol] 6.7 g/dL Normal 6.3-8.0 [facility] Comment on above: Order Comment: Speci men Type: BLOOD SPECIMENOrdering Facility: [facility] Address: [address] [place], [place] [address] Performed By: #### H STNT, 3040-3, 54580-5, 89727-3 ####[facility] LABORATORYCLIA [id number] [address] Sodium [Moles/Vol] 133 mmol/L Low 136-144 [facility] Comment on above: Order Comment: Speci men Type: BLOOD SPECIMENOrdering Facility: [facility] Address: [address] [place] [address] Performed By: #### H STNT, 3040-3, 09690-0, 73579-0 ####[facility] LABORATORYCLIA [id number] [address] OF [facility] Urea nitrogen [Mass/Vol] 12 mg/dL Normal 7-21 [facility] Comment on above: Order Comment: Speci men Type: BLOOD SPECIMENOrdering Facility: [facility] Address: [address] [place] [address] Performed By: #### H STNT, 3040-3, 04691-7, 32997-9 ####[facility] LABORATORYCLIA [id number] [address] ED NOTEon 09-23-2023 ED NOTE HNO ID: [id number] Author: CARLOS PAUL RN Service: ? Author Type: Registered Nurse Type: ED Notes Filed: 09/23/2023 15:32 Note Text: Discharge instructions d/w pt and at bedside. Stated understanding with no further questions for this nurse. Encouraged f/u with PCP and referring doctors given. Stated understanding. Prescription(S) were given X2. Normal [facility] ED PROV NOTEon 09-23-2023 ED PROV NOTE HNO ID: [id number] Author: MAXIMO PRESCOTT DO Service: Emergency Medicine Author Type: Physician Type: ED Provider Notes Filed: 09/23/2023 15:11 Note Text: ED CONTINUATION OF CARE NOTE Code Status: Prior Assumed care from: Dr. Rose Presentation / Findings / Interventions / Plan [...] pain, unspecified abdominal location Nausea SIGNATURE: Maximo Prescott DO PATIENT NAME: Anaya De La O DATE: September 23, 2023 TIME: 3:10 PM PAGER/CONTACT #: SAVANNACARMELOSHARONMAXIMO Aamir 09/23/23 1511 [facility] ED PROV NOTE HNO ID: [id number] Author: NEAL ROSE MD Service: Emergency Medicine Author Type: Physician Type: ED Provider Notes Filed: 09/23/2023 15:03 Note Text: ED Provider Note Patient Name: Anaya De La O : 1940 SERVICE DATE: 09/23/23 History Patient presents with: Multiple Concerns: Has hx dementia, took double dose of donepezil Saturday evening totaling 20mg. Beginning Saturday morning she began exhibiting FLS including nausea, abd pain, myalgias, chills and headaches. states she appears very drowsy and lethargic Ms. De La O is an 83 yo F with history [...] well-developed. H (more content not included)... Normal [facility] FLUABV+SARS-CoV-2+RSV Pnl Re sp PRABHA+probeon 09-23-2023 FLUABV+SARS-CoV-2+RSV Pnl Resp PRABHA+probe COVID 19 RESULT: Not detected The method used is RT-PCR or an equivalent NAAT method. Reference Range(the expected result in uninfected individuals): Not detected INFLUENZA A PCR: Not detected INFLUENZA B PCR: Not detected RSV PCR: Not detected Normal [facility] Comment on above: Performed By: #### 9 5941-1 ####[facility] LABORATORYCLIA [id number] [place] [address] [place] HIGH SENSITIVITY TROPONIN To n 09-23-2023 Troponin T.cardiac High sensitivity method [Mass/Vol] 11 ng/L Normal <12 [facility] Comment on above: Order Comment: Speci men Type: BLOOD SPECIMENOrdering Facility: [facility] Address: [address] [place] [address] Performed By: #### H STNT, 3040-3, 98638-4, 53548-7 ####[facility] LABORATORYCLIA [id number] [place] [address] [place] Lipase SerPl-cCncon 09-23-19 24 Lipase [Catalytic activity/Vol] 85 U/L High 16-61 [facility] Comment on above: Order Comment: Speci men Type: BLOOD SPECIMENOrdering Facility: [facility] Address: [address] [place] [address] Performed By: #### H STNT, 3040-3, 72718-8, 14350-5 ####[facility] LABORATORYCLIA [id number] [address] Magnesium SerPl-mCncon 09-22 Magnesium [Mass/Vol] 2.0 mg/dL Normal 1.7-2.3 [facility] Comment on above: Order Comment: Speci men Type: BLOOD SPECIMENOrdering Facility: [facility] Address: [address] [place] [address] Performed By: #### H STNT, 3040-3, 30483-1, 82510-6 ####[facility] LABORATORYCLIA [id number] [address] Urinalysis complete panel (U )on 09-23-2023 Bilirubin Ql (U) Negative Normal Negative [facility] Comment on above: Order Comment: Speci men Type: URINE SPECIMENOrdering Facility: [facility] [facility] Address: [address] [place] [address] Performed By: #### 2 4356-8 ####TR[facility] LABORATORYCLIA [id number] [address] Clarity (Unsp spec) Clear Normal Clear [facility] Comment on above: Order Comment: Speci men Type: URINE SPECIMENOrdering Facility: [facility] Address: [address] [place] [address] Performed By: #### 2 4356-8 ####TRONA LABORATORYCLIA [id number] [address] Color (U) Yellow Normal Yellow [facility] Comment on above: Order Comment: Speci men Type: URINE SPECIMENOrdering Facility: [facility] Address: [address] [place] [address] Performed By: #### 2 4356-8 ####[facility] LABORATORYCLIA [id number] [place] [address] [facility] Glucose Test strip (U) [Mass/Vol] Negative Normal Negative [facility] Comment on above: Order Comment: Speci men Type: URINE SPECIMENOrdering Facility: [facility] Address: [address] [place] [address] Performed By: #### 2 4356-8 ####LANG[facility] LABORATORYCLIA [id number] [place] [address] [place] Hemoglobin Ql (U) Negative Normal Negative [facility] Comment on above: Order Comment: Speci men Type: URINE SPECIMENOrdering Facility: [facility] Address: [address] [place] [address] Performed By: #### 2 4356-8 ####[facility] LABORATORYCLIA [id number] [address] STATES [facility] Ketones Ql (U) Negative Normal Negative [facility] Comment on above: Order Comment: Speci men Type: URINE SPECIMENOrdering Facility: [facility] Address: [address] [place] [address] Performed By: #### 2 4356-8 ####[facility] LABORATORYCLIA [id number] [address] [place] [facility] Leukocyte esterase Test strip Ql (U) Negative Normal Negative [facility] Comment on above: Order Comment: Speci men Type: URINE SPECIMENOrdering Facility: [facility] Address: [address] [place] [address] Performed By: #### 2 4356-8 ####[facility] LABORATORYCLIA [id number] [address] [place] Nitrite Ql (U) Negative Normal Negative [facility] Comment on above: Order Comment: Speci men Type: URINE SPECIMENOrdering Facility: [facility] Address: [address] [place] [address] Performed By: #### 2 4356-8 ####LANG[facility] LABORATORYCLIA [id number] [address] [place] pH (U) 7.0 [pH] Normal 5.0-8.0 [facility] Comment on above: Order Comment: Speci men Type: URINE SPECIMENOrdering Facility: [facility] Address: [address] [place] [address] Performed By: #### 2 4356-8 ####LANG[facility] LABORATORYCLIA [id number] [address] Protein (U) [Mass/Vol] Negative Normal Negative [facility] Comment on above: Order Comment: Speci men Type: URINE SPECIMENOrdering Facility: [facility] Address: [address] [place] [address] Performed By: #### 2 4356-8 ####TRONA LABORATORYCLIA [id number] [address] RBC LM.HPF (Urine sed) [#/Area] 0-3 /HPF Normal 0-3 /HPF [facility] Comment on above: Order Comment: Speci men Type: URINE SPECIMENOrdering Facility: [facility] Address: [address] [place] [address] Performed By: #### 2 4356-8 ####TRONA LABORATORYCLIA [id number] [address] Specific gravity (U) [Rel density] <=1.005 Low 1.005-1.030 [facility] Comment on above: Order Comment: Speci men Type: URINE SPECIMENOrdering Facility: [facility] Address: [address] [place] [address] Performed By: #### 2 4356-8 ####TRONA LABORATORYCLIA [id number] [address] Urobilinogen Ql (U) 0.2 EU/dL Normal 0.2-1.0 EU/dL [facility] Comment on above: Order Comment: Speci men Type: URINE SPECIMENOrdering Facility: [facility] Address: [address] [place] [address] Performed By: #### 2 4356-8 ####TRONA LABORATORYCLIA [id number] [place] [address] [place] WBC LM.HPF (Urine sed) [#/Area] 0-5 /HPF Normal 0-5 /HPF [facility] Comment on above: Order Comment: Speci men Type: URINE SPECIMENOrdering Facility: [facility] Address: [place] [address] Performed By: #### 2 4356-8 ####TRONA LABORATORYCLIA [id number] [place] [address] [place] XR CHEST 1V FRONTAL [...] as discussed under Results portion of report. Medical Staff Manager: JAIME Transcribe Date/Time: Sep 23 2023 2:08P Dictated by : RADHA ELIAS DO This examination was interpreted and the report reviewed and electronically signed by: RADHA ELIAS DO on Sep 23 2023 2:10PM EST [id number] Normal [facility] UA DIP, URINE (POC)on 2023 BILIRUBIN UA (POCT) Negative Negative [facility] CLARITY UA (POCT) Cloudy [facility] COLOR UA (POCT) Other [facility] GLUCOSE UA (POCT) Negative Negative mg/dL [facility] Hemoglobin Ql (U) Trace-intact Abnormal Negative [facility] Interpretation and review of laboratory results Abnormal [facility] KETONE UA (POCT) Negative Negative mg/dL [facility] LEUKOCYTES UA (POCT) Trace Abnormal Negative [facility] NITRITE UA (POCT) Negative Negative [facility] PH UA (POCT) 7.5 4.5 - 8.0 [facility] Protein Ql (U) Negative Negative mg/dL [facility] SPECIFIC GRAVITY UA (POCT) 1.015 1.005 - 1.030 [facility] UROBILINOGEN UA (POCT) 0.2 Jacqueline l E.U./dL [facility] Location:[address], [place], [place], [id number] [place] [address] POINT OF CARE [facility] UA DIP, URINE (POC)on 2023 BILIRUBIN UA (POCT) Negative Negative [facility] CLARITY UA (POCT) Clear [facility] COLOR UA (POCT) Yellow [facility] GLUCOSE UA (POCT) Negative Negative mg/dL [facility] Hemoglobin Ql (U) Negative Negative [facility] Interpretation and review of laboratory results Abnormal [facility] KETONE UA (POCT) Negative Negative mg/dL [facility] LEUKOCYTES UA (POCT) Small Abnormal Negative [facility] NITRITE UA (POCT) Negative Negative [facility] PH UA (POCT) 6.0 4.5 - 8.0 [facility] Protein Ql (U) Negative Negative mg/dL [facility] SPECIFIC GRAVITY UA (POCT) 1.010 1.005 - 1.030 [facility] UROBILINOGEN UA (POCT) 0.2 Jacqueline l E.U./dL [facility] Location:[address], [place], [place], [address] [place] [address] POINT OF CARE [facility] COVID & INFLUENZA A/B & RSV NAAT, ROUTINEon 06-28-2023 FLUAV RNA PRABHA+probe Ql (Unsp spec) Not detected Not Detected [facility] FLUBV RNA PRABHA+probe Ql (Unsp spec) Not detected Not Detected [facility] Interpretation and review of laboratory results Normal [facility] RSV A RNA PRABHA+probe Ql (Unsp spec) Not detected Not Detected [facility] SARS-CoV-2 (COVID-19) RNA PRABHA+probe Ql (Resp) Not detected See comment [facility] Comment on above: The method used is R T-PCR or an equivalent NAAT method. Reference Range (the expected result in uninfected individuals): Not detected For upper respirator y tract samples, this test has been authorized by FDA under Emergenecy Use Authorization (EUA). For lower respiratory tract samples, this test was developed and its performance characteristics determined by [facility]'s [facility] ([facility] It has not been cleared or approved by the FDA. [facility] is regulated under CLIA as qualified to perform high-complexity testing. This test is used for clinical purposes. It should not be regarded as investigational or for research. Test performed by [facility], [facility] [place], [address] [place], [place] [address]. [facility] XR Chest PA and Lateralon IMPRESSION: No acute radiographic abnormality. Medical Staff Manager: JAIME Transcribe Date/Time: Jun 28 2023 4:08P Dictated by : LIDIA AGUILAR MD This examination was interpreted and the report reviewed and electronically signed by: LIDIA AGUILAR MD on Jun 28 2023 4:09PM [facility] DIVISION OF RADIOLOGY * * *Final [...] soft tissues: Unremarkable. DIVISION OF RADIOLOGY Provider, [facility] - 06/28/2023 * * *Final Report* * [...] Unremarkable. IMPRESSION IMPRESSION: No acute radiographic abnormality. Medical Staff Manager: JIAME Transcribe Date/Time: Jun 28 2023 4:08P Dictated by : LIDIA AGUILAR MD This examination was interpreted and the report reviewed and electronically signed by: LIDIA AGUILAR MD on Jun 28 2023 4:09PM EST [facility] XR Chest PA and LateralOrder ed By: Ccf Provider on 06-28-2023 [facility] XR Chest PA and Lateralon Radiology Study observation (narrative) [facility] Absolute lymphocyte countOrd ered By: Dina Olea on 05-27-2023 Lymphocytes Auto (Unsp spec) [#/Vol] 2.45 10*3/uL 0.83-4.51 [facility] Automated lymphocyte count a s percentage of total leukocytesOrdered By: Dina Olea on 05-27-2023 Lymphocytes/100 WBC Auto (Unsp spec) 38.5 % 19-41 [facility] Basophil percentageOrdered B y: Dnia Olea on 05-27-2023 Basophils/100 WBC (Bld) 0.6 % 0-1 [facility] Bilirubin [Mass/Vol] 0.30 mg/dL 0.20-1.00 [facility] Comment on above: For patients on eltr ombopag therapy, use of Dimension [place] TBIL is not recommended. Chloride [Moles/Vol] 106 mmol/L 98-107 [facility] Eosinophils/100 WBC (Bld) 5.0 % 0-5 [facility] Glucose [Mass/Vol] 96 mg/dL 74-106 [facility] Hemoglobin (Bld) [Mass/Vol] 13.0 g/dL 12.0-15.0 [facility] Monocytes/100 WBC (Bld) 12.6 % 0-10 [facility] Neutrophils (Bld) [#/Vol] 2.7 10*3/uL 2.0-7.7 [facility] Neutrophils/100 WBC (Bld) 42.8 % 47-70 [facility] Potassium [Moles/Vol] 4.7 mmol/L 3.5-5.1 [facility] Protein [Mass/Vol] 6.4 g/dL 6.4-8.2 [facility] Sodium [Moles/Vol] 138 mmol/L 136-145 [facility] WBC (Bld) [#/Vol] 6.4 10*3/uL 4.4-11.0 [facility] Determination of erythrocyte mean corpuscular volume (MCV)Ordered By: Dina Olea on 05-27-2023 MCV (RBC) [Entitic vol] 94.7 fL 81-99 [facility] Erythrocyte distribution wid th ratioOrdered By: [facility] Lefty on 05-27-2023 Erythrocyte distribution width (RBC) [Ratio] 13.6 % 11.6-14.6 [facility] Erythrocyte distribution wid th standard deviationOrdered By: [facility] Lef[facility] on 05-27-2023 Erythrocyte distribution width (RBC) [Entitic vol] 46.5 fL 35.1-43.9 [facility] Hematocrit Auto (Bld) [Volum e fraction]Ordered By: Dina Lefty on 05-27-2023 Hematocrit (Bld) [Volume fraction] 41.3 % 37-47 [facility] Immature granulocytes/100 WB C Auto (Bld)Ordered By: Dinacarlos manuel Olea on 05-27-2023 Immature granulocytes/100 WBC (Bld) 0.500 % 0.0-0.9 [facility] Comment on above: IG% - Immature Granu locytes (promyelocytes, myelocytes and metamyelocytes) > 1% indicates that a LEFT SHIFT is Present. Laboratory - Chemistry and C hemistry - challengeOrdered By: Dina Olea on 05-27-2023 Albumin/Globulin [Mass ratio] 1.0 {ratio} 0.9-2.4 [facility] ALP [Catalytic activity/Vol] 105 U/L 45-117 [facility] ALT [Catalytic activity/Vol] 33 U/L 13-56 [facility] CO2 [Moles/Vol] 28.0 mmol/L 21.0-32.0 [facility] Globulin (S) [Mass/Vol] 3.2 g/dL 2.2-4.2 [facility] Urea nitrogen/Creatinine [Mass ratio] 27.7 mg/mg 10-20 [facility] Laboratory - Hematology and Cell countsOrdered By: Dina Olea on 05-27-2023 MCH (RBC) [Entitic mass] 29.8 pg 27.0-32.0 [facility] MCHC (RBC) [Mass/Vol] 31.5 g/dL 32-36 [facility] Nucleated RBC/100 WBC (Bld) [Ratio] 0 % 0-5 [facility] Platelet mean volume (Bld) [Entitic vol] 11.5 fL 6.2-12.0 [facility] Platelets (Bld) [#/Vol] 240 10*3/uL 150-450 [facility] No Panel InformationOrdered By: Dina Olea on 05-27-2023 Estimated GFR (MDRD) Amer 105 mL/min >60 [facility] Comment on above: GFR Calc Estimated GFR (MDRD) Non-Af Amer 87 mL/min >60 [facility] Comment on above: Non- GFR Calc RBC Auto (Bld) [#/Vol]Ordere d By: Dina Olea on 05-27-2023 RBC (Bld) [#/Vol] 4.36 10*6/uL 4.2-5.4 [facility] Serum or plasma calcium enmanuel urement (mass/volume)Ordered By: Dina Olea on 05-27-2023 Calcium [Mass/Vol] 8.9 mg/dL 8.5-10.1 [facility] Serum or plasma creatinine m easurement (mass/volume)Ordered By: Dina Olea on 05-27-2023 Creatinine [Mass/Vol] 0.69 mg/dL 0.55-1.02 [facility] Comment on above: The validity of the calculated GFR & GFRAA in patients over 70 years has not been determined. Clinical correlation is essential. Serum or plasma urea nitroge n measurement (mass/volume)Ordered By: Dina Olea on 05-27-2023 Urea nitrogen [Mass/Vol] 19 mg/dL 7-18 [facility] Thin prep Papanicolaou smear with manual screeningOrdered By: Dina Olea on 05-27-2023 Thin prep Papanicolaou smear with manual screening 3.2 g/dL 3.2-5.0 [facility] Thin prep Papanicolaou smear with manual screening 28 U/L 15-37 [facility] Thin prep Papanicolaou smear with manual screening 4 5-15 [facility] MRI 3D POST PROCESSINGon MRI 3D POST PROCESSING * * *Final Report * * * DATE OF EXAM: May 22 2023 6:14PM [facility] 0280 - MRI 3D POST PROCESSING [...] sidebranch IPMN or an oligocystic serous adenoma. Medical Staff Manager: JAIME Transcribe Date/Time: May 24 2023 11:23A Dictated by : MYNOR VILLANUEVA MD This examination was interpreted and the report reviewed and electronically signed by: MYNOR VILLANUEVA MD on May 24 2023 11:36AM EST [id number] Normal [facility] MRI PANC/ARETHA WO/W IVCONon MRI PANC/ARETHA WO/W IVCON * * *Final Report* * * DATE OF EXAM: May 22 2023 6:12PM [facility] 0730 - MRI PANC/ARETHA WO/W IVCON [...] sidebranch IPMN or an oligocystic serous adenoma. Medical Staff Manager: JAIME Transcribe Date/Time: May 24 2023 11:23A Dictated by : MYNOR VILLANUEVA MD This examination was interpreted and the report reviewed and electronically signed by: MYNOR VILLANUEVA MD on May 24 2023 11:36AM EST [id number] Normal [facility] No Panel Informationon 05-07 [facility] US ABD RIGHT UPPER QUADRANTo n [...] in the right upper quadrant. No splenomegaly. Medical Staff Manager: JAIME Transcribe Date/Time: May 08 2023 2:24P Dictated by : PAULA CONTRERAS MD This examination was interpreted and the report reviewed and electronically signed by: PAULA CONTRERAS MD on May 08 2023 2:27PM EST [id number] Normal [facility] US ABD SPLEEN -NBon 05-08-19 US [...] in the right upper quadrant. No splenomegaly. Medical Staff Manager: PSCB Transcribe Date/Time: May 08 2023 2:24P Dictated by : PAULA CONTRERAS MD This examination was interpreted and the report reviewed and electronically signed by: PAULA CONTRERAS MD on May 08 2023 2:27PM EST [id number] Normal [facility] Absolute lymphocyte countOrd ered By: Dina Olea on 03-11-2023 Lymphocytes Auto (Unsp spec) [#/Vol] 2.16 10*3/uL 0.83-4.51 [facility] Basophil percentageOrdered B y: Dina Olea on 03-11-2023 Basophils/100 WBC (Bld) 0.3 % 0-1 [facility] Bilirubin [Mass/Vol] 0.40 mg/dL 0.20-1.00 [facility] Comment on above: For patients on eltr ombopag therapy, use of Dimension [place] TBIL is not recommended. Chloride [Moles/Vol] 106 mmol/L 98-107 [facility] Eosinophils/100 WBC (Bld) 3.0 % 0-5 [facility] Glucose [Mass/Vol] 97 mg/dL 74-106 [facility] Neutrophils (Bld) [#/Vol] 3.5 10*3/uL 2.0-7.7 [facility] Neutrophils/100 WBC (Bld) 51.5 % 47-70 [facility] Potassium [Moles/Vol] 3.9 mmol/L 3.5-5.1 [facility] Protein [Mass/Vol] 6.5 g/dL 6.4-8.2 [facility] Sodium [Moles/Vol] 139 mmol/L 136-145 [facility] WBC (Bld) [#/Vol] 6.7 10*3/uL 4.4-11.0 [facility] Blood erythrocytes count (nu mber/volume)Ordered By: Dina Olea on 03-11-2023 RBC (Bld) [#/Vol] 4.09 10*6/uL 4.2-5.4 [facility] Blood hemoglobin measurement (mass/volume)Ordered By: Dina Olea on 03-11-2023 Hemoglobin (Bld) [Mass/Vol] 12.4 g/dL 12.0-15.0 [facility] Blood lymphocytes/100 leukoc ytesOrdered By: Dina Olea on 03-11-2023 Lymphocytes/100 WBC (Bld) 32.2 % 19-41 [facility] Blood monocytes/100 leukocyt esOrdered By: Dina Olea on 03-11-2023 Monocytes/100 WBC (Bld) 12.7 % 0-10 [facility] Blood platelet mean volumeOr dered By: Dina Olea on 03-11-2023 Platelet mean volume (Bld) [Entitic vol] 11.2 fL 6.2-12.0 [facility] Determination of erythrocyte mean corpuscular volume (MCV)Ordered By: Dina Olea on 03-11-2023 MCV (RBC) [Entitic vol] 95.8 fL 81-99 [facility] Hematocrit Auto (Bld) [Volum e fraction]Ordered By: Dina Olea on 03-11-2023 Hematocrit (Bld) [Volume fraction] 39.2 % 37-47 [facility] Laboratory - Chemistry and C hemistry - challengeOrdered By: Dina Olea on 03-11-2023 ALP [Catalytic activity/Vol] 105 U/L 45-117 [facility] ALT [Catalytic activity/Vol] 31 U/L 13-56 [facility] CO2 [Moles/Vol] 30.0 mmol/L 21.0-32.0 [facility] Globulin (S) [Mass/Vol] 3.2 g/dL 2.2-4.2 [facility] Urea nitrogen/Creatinine [Mass ratio] 26.0 mg/mg 10-20 [facility] Laboratory - Hematology and Cell countsOrdered By: Dina Olea on 03-11-2023 Erythrocyte distribution width (RBC) [Entitic vol] 50.4 fL 35.1-43.9 [facility] Erythrocyte distribution width (RBC) [Ratio] 14.6 % 11.6-14.6 [facility] Immature granulocytes/100 WBC (Bld) 0.300 % 0.0-0.9 [facility] Comment on above: IG% - Immature Granu locytes (promyelocytes, myelocytes and metamyelocytes) > 1% indicates that a LEFT SHIFT is Present. MCH (RBC) [Entitic mass] 30.3 pg 27.0-32.0 [facility] Nucleated RBC/100 WBC (Bld) [Ratio] 0 % 0-5 [facility] MCHC Auto (RBC) [Mass/Vol]Or dered By: Dina Olea on 03-11-2023 MCHC (RBC) [Mass/Vol] 31.6 g/dL 32-36 [facility] No Panel InformationOrdered By: Dina Olea on 03-11-2023 Estimated GFR (MDRD) Amer 104 mL/min >60 [facility] Comment on above: GFR Calc Estimated GFR (MDRD) Non-Af Amer 86 mL/min >60 [facility] Comment on above: Non- GFR Calc Platelets bldOrdered By: Violet Olea on 03-11-2023 Platelets (Bld) [#/Vol] 201 10*3/uL 150-450 [facility] Serum or plasma albumin enmanuel urement (mass/volume)Ordered By: Dina Olea on 03-11-2023 Albumin [Mass/Vol] 3.3 g/dL 3.2-5.0 [facility] Serum or plasma albumin/glob ulin mass ratioOrdered By: Dina Olea on 03-11-2023 Albumin/Globulin [Mass ratio] 1.0 {ratio} 0.9-2.4 [facility] Serum or plasma calcium enmanuel urement (mass/volume)Ordered By: Dina Olea on 03-11-2023 Calcium [Mass/Vol] 9.0 mg/dL 8.5-10.1 [facility] Serum or plasma creatinine m easurement (mass/volume)Ordered By: Dina Olea on 03-11-2023 Creatinine [Mass/Vol] 0.69 mg/dL 0.55-1.02 [facility] Comment on above: The validity of the calculated GFR & GFRAA in patients over 70 years has not been determined. Clinical correlation is essential. Serum or plasma urea nitroge n measurement (mass/volume)Ordered By: Dina Olea on 03-11-2023 Urea nitrogen [Mass/Vol] 18 mg/dL 7-18 [facility] Thin prep Papanicolaou smear with manual screeningOrdered By: Dina Olea on 03-11-2023 Thin prep Papanicolaou smear with manual screening 29 U/L 15-37 [facility] Thin prep Papanicolaou smear with manual screening 3 5-15 [facility] UA DIP, URINE (POC)on 2022 BILIRUBIN UA (POCT) Negative Negative [facility] CLARITY UA (POCT) Clear [facility] COLOR UA (POCT) Yellow [facility] GLUCOSE UA (POCT) Negative Negative mg/dL [facility] Hemoglobin Ql (U) Negative [facility] KET[facility]A (PO[facility]) Negative Negative mg/dL [facility] LEUKOCYTES UA (POCT) Trace Abnormal Negative [facility] NITRITE UA (POCT) Negative Negative [facility] PH UA (POCT) 7.0 4.5 - 8.0 [facility] Protein Ql (U) Negative Negative mg/dL [facility] SPECIFIC GRAVITY UA (POCT) 1.015 1.005 - 1.030 [facility] UROBILINOGEN UA (POCT) 0.2 E.U./dL Jacqueline l E.U./dL [facility] CT HEAD OR BRAIN W/O CONTRAS [...] 01/19/2023 1:25:21 PM Ordering Provider: MIRA Hooper [facility] ([place]) CT SPINE CERVICAL W/O CONTRA STon 01-19-2023 [...] 01/19/2023 1:32:00 PM Ordering Provider: MIRA VILLATORO [facility] ([place]) XR Knee AP and Lateral and Cristhian mata 01-12-2023 IMPRESSION: Stable T KA Medical Staff Manager: PSCB Transcribe Date/Time: Jan 12 2023 3:07P Dictated by : ISAI PENNINGTON MD This examination was interpreted and the report reviewed and electronically signed by: ISAI PENNINGTON MD on Jan 12 2023 3:08PM EST [facility] * * *Final Report* * * [...] Small joint effusion. Right TKA is evident. [facility] Provider, Fatimah Ku - 01/12/2023 * [...] TKA is evident. IMPRESSION IMPRESSION: Stable TKA Medical Staff Manager: PSCB Transcribe Date/Time: Jan 12 2023 3:07P Dictated by : ISAI PENNINGTON MD This examination was interpreted and the report reviewed and electronically signed by: ISAI PENNINGTON MD on Jan 12 2023 3:08PM EST [facility] XR Knee AP and Lateral and M erchantsOrdered By: Ccf Provider on 01-12-2023 [facility] C-REACTIVE PROTEIN (CRP)on 03-13-2022 CRP [Mass/Vol] 3.7 mg/dL High <0.9 mg/dL [facility] XR Knee AP and Lateral and M erchantson 01-11-2023 Radiology Study observation (narrative) [facility] No Panel Informationon 12-27 [facility] Absolute lymphocyte countOrd ered By: Dina Olea on 12-11-2022 Lymphocytes Auto (Unsp spec) [#/Vol] 1.78 10*3/uL 0.83-4.51 [facility] Basophil percentageOrdered B y: Dina Olea on 12-11-2022 Basophils/100 WBC (Bld) 0.7 % 0-1 [facility] Bilirubin [Mass/Vol] 0.50 mg/dL 0.20-1.00 [facility] Comment on above: For patients on eltr ombopag therapy, use of Dimension [place] TBIL is not recommended. Chloride [Moles/Vol] 106 mmol/L 98-107 [facility] Eosinophils/100 WBC (Bld) 2.8 % 0-5 [facility] Glucose [Mass/Vol] 94 mg/dL 74-106 [facility] Neutrophils (Bld) [#/Vol] 3.5 10*3/uL 2.0-7.7 [facility] Neutrophils/100 WBC (Bld) 58.0 % 47-70 [facility] Potassium [Moles/Vol] 4.4 mmol/L 3.5-5.1 [facility] Protein [Mass/Vol] 6.4 g/dL 6.4-8.2 [facility] Sodium [Moles/Vol] 138 mmol/L 136-145 [facility] WBC (Bld) [#/Vol] 6.0 10*3/uL 4.4-11.0 [facility] Blood erythrocytes count (nu mber/volume)Ordered By: Dina Olea on 12-11-2022 RBC (Bld) [#/Vol] 4.04 10*6/uL 4.2-5.4 [facility] Blood hemoglobin measurement (mass/volume)Ordered By: Dina Olea on 12-11-2022 Hemoglobin (Bld) [Mass/Vol] 12.2 g/dL 12.0-15.0 [facility] Blood lymphocytes/100 leukoc ytesOrdered By: Dina Olea on 12-11-2022 Lymphocytes/100 WBC (Bld) 29.5 % 19-41 [facility] Blood monocytes/100 leukocyt esOrdered By: Dina Olea on 12-11-2022 Monocytes/100 WBC (Bld) 8.5 % 0-10 [facility] Blood platelet mean volumeOr dered By: Dina Olea on 12-11-2022 Platelet mean volume (Bld) [Entitic vol] 9.8 fL 6.2-12.0 [facility] Determination of erythrocyte mean corpuscular volume (MCV)Ordered By: Dina Olea on 12-11-2022 MCV (RBC) [Entitic vol] 96.8 fL 81-99 [facility] Hematocrit Auto (Bld) [Volum e fraction]Ordered By: Dina Olea on 12-11-2022 Hematocrit (Bld) [Volume fraction] 39.1 % 37-47 [facility] Laboratory - Chemistry and C hemistry - challengeOrdered By: Dina Olea on 12-11-2022 ALP [Catalytic activity/Vol] 113 U/L 45-117 [facility] ALT [Catalytic activity/Vol] 29 U/L 13-56 [facility] CO2 [Moles/Vol] 30.0 mmol/L 21.0-32.0 [facility] Globulin (S) [Mass/Vol] 3.4 g/dL 2.2-4.2 [facility] Urea nitrogen/Creatinine [Mass ratio] 16.7 mg/mg 10-20 [facility] Laboratory - Hematology and Cell countsOrdered By: Dina Olea on 12-11-2022 Erythrocyte distribution width (RBC) [Entitic vol] 46.9 fL 35.1-43.9 [facility] Erythrocyte distribution width (RBC) [Ratio] 13.3 % 11.6-14.6 [facility] Immature granulocytes/100 WBC (Bld) 0.500 % 0.0-0.9 [facility] Comment on above: IG% - Immature Granu locytes (promyelocytes, myelocytes and metamyelocytes) > 1% indicates that a LEFT SHIFT is Present. MCH (RBC) [Entitic mass] 30.2 pg 27.0-32.0 [facility] Nucleated RBC/100 WBC (Bld) [Ratio] 0 % 0-5 [facility] MCHC Auto (RBC) [Mass/Vol]Or dered By: Dina Olea on 12-11-2022 MCHC (RBC) [Mass/Vol] 31.2 g/dL 32-36 [facility] No Panel InformationOrdered By: Dina Olea on 12-11-2022 Estimated GFR (MDRD) Amer 123 mL/min >60 [facility] Comment on above: GFR Calc Estimated GFR (MDRD) Non-Af Amer 102 mL/min >60 [facility] Comment on above: Non- GFR Calc Platelets bldOrdered By: Violet Olea on 12-11-2022 Platelets (Bld) [#/Vol] 282 10*3/uL 150-450 [facility] Serum or plasma albumin enmanuel urement (mass/volume)Ordered By: Dina Olea on 12-11-2022 Albumin [Mass/Vol] 3.0 g/dL 3.2-5.0 [facility] Serum or plasma albumin/glob ulin mass ratioOrdered By: Dina Olea on 12-11-2022 Albumin/Globulin [Mass ratio] 0.9 {ratio} 0.9-2.4 [facility] Serum or plasma calcium enmanuel urement (mass/volume)Ordered By: Dina Olea on 12-11-2022 Calcium [Mass/Vol] 8.9 mg/dL 8.5-10.1 [facility] Serum or plasma creatinine m easurement (mass/volume)Ordered By: Dinacarlos manuel Olea on 12-11-2022 Creatinine [Mass/Vol] 0.60 mg/dL 0.55-1.02 [facility] Comment on above: The validity of the calculated GFR & GFRAA in patients over 70 years has not been determined. Clinical correlation is essential. Serum or plasma urea nitroge n measurement (mass/volume)Ordered By: Dinacarlos manuel Olea on 12-11-2022 Urea nitrogen [Mass/Vol] 10 mg/dL 7-18 [facility] Thin prep Papanicolaou smear with manual screeningOrdered By: [facility] L[facility] on 12-11-2022 Thin prep Papanicolaou smear with manual screening 25 U/L 15-37 [facility] Thin prep Papanicolaou smear with manual screening 2 5-15 [facility] DXA-AXIAL SKELETONon [address] [facility] [address] CHEST IVCONon 11-23-19 23 Radiology Result ACTIONABLE Abnormal [facility] UA DIP, URINE (POC)on 2022 BILIRUBIN UA (POCT) Negative Negative [facility] CLARITY UA (POCT) Clear [facility] COLOR UA (POCT) [place] [facility] GLUCOSE UA (POCT) Negative Negative mg/dL [facility] Hemoglobin Ql (U) Large Abnormal Negative [facility] KETONE UA (POCT) Negative Negative mg/dL [facility] LEUKOCYTES UA (POCT) Moderate Abnormal Negative [facility] NITRITE UA (POCT) Negative Negative [facility] PH UA (POCT) 7.5 4.5 - 8.0 [facility] Protein Ql (U) 30 mg/dL Abnormal Negative mg/dL [facility] SPECIFIC GRAVITY UA (POCT) 1.015 1.005 - 1.030 [facility] UROBILINOGEN UA (POCT) 0.2 E.U./dL Jacqueline l E.U./dL [facility] XR Chest PA and Lateralon IMPRESSION: No acute radiographic abnormality. Medical Staff Manager: JAIME Transcribe Date/Time: Sep 28 2022 11:32A Dictated by : EMRE NARANJO MD This examination was interpreted and the report reviewed and electronically signed by: EMRE NARANJO MD on Sep 28 2022 11:32AM [facility] DIVISION OF RADIOLOGY * * *Final [...] in the spine. DIVISION OF RADIOLOGY Provider, [facility] - 09/28/2022 * * *Final Report* [...] spine. IMPRESSION IMPRESSION: No acute radiographic abnormality. Medical Staff Manager: JAIME Transcribe Date/Time: Sep 28 2022 11:32A Dictated by : EMRE NARANJO MD This examination was interpreted and the report reviewed and electronically signed by: EMRE NARANJO MD on Sep 28 2022 11:32AM EST [facility] XR Chest PA and LateralOrder ed By: [facility] Provider on 09-28-2022 [facility] XR Chest PA and Lateralon Radiology Study observation (narrative) [facility] Absolute lymphocyte countOrd ered By: Dina Olea on 09-13-2022 Lymphocytes Auto (Unsp spec) [#/Vol] 1.44 10*3/uL 0.83-4.51 [facility] Basophil percentageOrdered B y: Dina Olea on 09-13-2022 Basophils/100 WBC (Bld) 0.4 % 0-1 [facility] Bilirubin [Mass/Vol] 0.70 mg/dL 0.20-1.00 [facility] Comment on above: For patients on eltr ombopag therapy, use of Dimension [place] TBIL is not recommended. Chloride [Moles/Vol] 108 mmol/L 98-107 [facility] Eosinophils/100 WBC (Bld) 3.0 % 0-5 [facility] Glucose [Mass/Vol] 90 mg/dL 74-106 [facility] Neutrophils (Bld) [#/Vol] 3.3 10*3/uL 2.0-7.7 [facility] Neutrophils/100 WBC (Bld) 61.2 % 47-70 [facility] Potassium [Moles/Vol] 4.3 mmol/L 3.5-5.1 [facility] Protein [Mass/Vol] 6.3 g/dL 6.4-8.2 [facility] Sodium [Moles/Vol] 139 mmol/L 136-145 [facility] WBC (Bld) [#/Vol] 5.4 10*3/uL 4.4-11.0 [facility] Blood erythrocytes count (nu mber/volume)Ordered By: Dina Olea on 09-13-2022 RBC (Bld) [#/Vol] 3.90 10*6/uL 4.2-5.4 [facility] Blood hemoglobin measurement (mass/volume)Ordered By: Dina Olea on 09-13-2022 Hemoglobin (Bld) [Mass/Vol] 12.0 g/dL 12.0-15.0 [facility] Blood lymphocytes/100 leukoc ytesOrdered By: Dina Olea on 09-13-2022 Lymphocytes/100 WBC (Bld) 26.8 % 19-41 [facility] Blood monocytes/100 leukocyt esOrdered By: Dina Olea on 09-13-2022 Monocytes/100 WBC (Bld) 8.4 % 0-10 [facility] Blood platelet mean volumeOr dered By: Dina Olea on 09-13-2022 Platelet mean volume (Bld) [Entitic vol] 11.3 fL 6.2-12.0 [facility] Determination of erythrocyte mean corpuscular volume (MCV)Ordered By: Dina Olea on 09-13-2022 MCV (RBC) [Entitic vol] 96.2 fL 81-99 [facility] Hematocrit Auto (Bld) [Volum e fraction]Ordered By: Dina Olea on 09-13-2022 Hematocrit (Bld) [Volume fraction] 37.5 % 37-47 [facility] Laboratory - Chemistry and C hemistry - challengeOrdered By: Dina Olea on 09-13-2022 ALP [Catalytic activity/Vol] 95 U/L 45-117 [facility] ALT [Catalytic activity/Vol] 28 U/L 13-56 [facility] CO2 [Moles/Vol] 25.0 mmol/L 21.0-32.0 [facility] Globulin (S) [Mass/Vol] 3.0 g/dL 2.2-4.2 [facility] Urea nitrogen/Creatinine [Mass ratio] 21.9 mg/mg 10-20 [facility] Laboratory - Hematology and Cell countsOrdered By: Dina Olea on 09-13-2022 Erythrocyte distribution width (RBC) [Entitic vol] 49.1 fL 35.1-43.9 [facility] Erythrocyte distribution width (RBC) [Ratio] 14.0 % 11.6-14.6 [facility] Immature granulocytes/100 WBC (Bld) 0.200 % 0.0-0.9 [facility] Comment on above: IG% - Immature Granu locytes (promyelocytes, myelocytes and metamyelocytes) > 1% indicates that a LEFT SHIFT is Present. MCH (RBC) [Entitic mass] 30.8 pg 27.0-32.0 [facility] Nucleated RBC/100 WBC (Bld) [Ratio] 0 % 0-5 [facility] MCHC Auto (RBC) [Mass/Vol]Or dered By: Dina Olea on 09-13-2022 MCHC (RBC) [Mass/Vol] 32.0 g/dL 32-36 [facility] No Panel InformationOrdered By: Dina Olea on 09-13-2022 Estimated GFR (MDRD) Amer 106 mL/min >60 [facility] Comment on above: GFR Calc Estimated GFR (MDRD) Non-Af Amer 87 mL/min >60 [facility] Comment on above: Non- GFR Calc Platelets bldOrdered By: Violet Olea on 09-13-2022 Platelets (Bld) [#/Vol] 201 10*3/uL 150-450 [facility] Serum or plasma albumin enmanuel urement (mass/volume)Ordered By: Dina Olea on 09-13-2022 Albumin [Mass/Vol] 3.3 g/dL 3.2-5.0 [facility] Serum or plasma albumin/glob ulin mass ratioOrdered By: Dina Olea on 09-13-2022 Albumin/Globulin [Mass ratio] 1.1 {ratio} 0.9-2.4 [facility] Serum or plasma calcium enmanuel urement (mass/volume)Ordered By: Dina Olea on 09-13-2022 Calcium [Mass/Vol] 8.7 mg/dL 8.5-10.1 [facility] Serum or plasma creatinine m easurement (mass/volume)Ordered By: Dina Olea on 09-13-2022 Creatinine [Mass/Vol] 0.68 mg/dL 0.55-1.02 [facility] Comment on above: The validity of the calculated GFR & GFRAA in patients over 70 years has not been determined. Clinical correlation is essential. Serum or plasma urea nitroge n measurement (mass/volume)Ordered By: Dina Olea on 09-13-2022 Urea nitrogen [Mass/Vol] 15 mg/dL 7-18 [facility] Thin prep Papanicolaou smear with manual screeningOrdered By: Dina Olea on 09-13-2022 Thin prep Papanicolaou smear with manual screening 28 U/L 15-37 [facility] Thin prep Papanicolaou smear with manual screening 6 5-[address] [facility] [address] BRAIN WO IVCONon 08-16-19 [facility] Absolute lymphocyte countOrd ered By: Dina Olea on 06-25-2022 Lymphocytes Auto (Unsp spec) [#/Vol] 1.95 10*3/uL 0.83-4.51 [facility] Basophil percentageOrdered B y: Dina Olea on 06-25-2022 Basophils/100 WBC (Bld) 0.8 % 0-1 [facility] Bilirubin [Mass/Vol] 0.30 mg/dL 0.20-1.00 [facility] Comment on above: For patients on eltr ombopag therapy, use of Dimension [place] TBIL is not recommended. Chloride [Moles/Vol] 109 mmol/L 98-107 [facility] Eosinophils/100 WBC (Bld) 4.0 % 0-5 [facility] Glucose [Mass/Vol] 93 mg/dL 74-106 [facility] Neutrophils (Bld) [#/Vol] 2.5 10*3/uL 2.0-7.7 [facility] Neutrophils/100 WBC (Bld) 47.2 % 47-70 [facility] Potassium [Moles/Vol] 4.6 mmol/L 3.5-5.1 [facility] Protein [Mass/Vol] 6.3 g/dL 6.4-8.2 [facility] Sodium [Moles/Vol] 139 mmol/L 136-145 [facility] WBC (Bld) [#/Vol] 5.3 10*3/uL 4.4-11.0 [facility] Blood erythrocytes count (nu mber/volume)Ordered By: Dina Olea on 06-25-2022 RBC (Bld) [#/Vol] 4.03 10*6/uL 4.2-5.4 [facility] Blood hemoglobin measurement (mass/volume)Ordered By: Dina Olea on 06-25-2022 Hemoglobin (Bld) [Mass/Vol] 12.4 g/dL 12.0-15.0 [facility] Blood lymphocytes/100 leukoc ytesOrdered By: Dina Olea on 06-25-2022 Lymphocytes/100 WBC (Bld) 37.1 % 19-41 [facility] Blood monocytes/100 leukocyt esOrdered By: Dina Olea on 06-25-2022 Monocytes/100 WBC (Bld) 10.3 % 0-10 [facility] Blood platelet mean volumeOr dered By: Dina Olea on 06-25-2022 Platelet mean volume (Bld) [Entitic vol] 11.1 fL 6.2-12.0 [facility] Determination of erythrocyte mean corpuscular volume (MCV)Ordered By: Dina Olea on 06-25-2022 MCV (RBC) [Entitic vol] 98.0 fL 81-99 [facility] Hematocrit Auto (Bld) [Volum e fraction]Ordered By: Dina Olea on 06-25-2022 Hematocrit (Bld) [Volume fraction] 39.5 % 37-47 [facility] Laboratory - Chemistry and C hemistry - challengeOrdered By: Dina Olea on 06-25-2022 ALP [Catalytic activity/Vol] 107 U/L 45-117 [facility] ALT [Catalytic activity/Vol] 27 U/L 13-56 [facility] CO2 [Moles/Vol] 29.0 mmol/L 21.0-32.0 [facility] Globulin (S) [Mass/Vol] 3.1 g/dL 2.2-4.2 [facility] Urea nitrogen/Creatinine [Mass ratio] 22.9 mg/mg 10-20 [facility] Laboratory - Hematology and Cell countsOrdered By: Dina Olea on 06-25-2022 Erythrocyte distribution width (RBC) [Entitic vol] 51.8 fL 35.1-43.9 [facility] Erythrocyte distribution width (RBC) [Ratio] 14.4 % 11.6-14.6 [facility] Immature granulocytes/100 WBC (Bld) 0.600 % 0.0-0.9 [facility] Comment on above: IG% - Immature Granu locytes (promyelocytes, myelocytes and metamyelocytes) > 1% indicates that a LEFT SHIFT is Present. MCH (RBC) [Entitic mass] 30.8 pg 27.0-32.0 [facility] Nucleated RBC/100 WBC (Bld) [Ratio] 0 % 0-5 [facility] MCHC Auto (RBC) [Mass/Vol]Or dered By: Dina Olea on 06-25-2022 MCHC (RBC) [Mass/Vol] 31.4 g/dL 32-36 [facility] No Panel InformationOrdered By: Dina Olea on 06-25-2022 Estimated GFR (MDRD) Amer 111 mL/min >60 [facility] Comment on above: GFR Calc Estimated GFR (MDRD) Non-Af Amer 92 mL/min >60 [facility] Comment on above: Non- GFR Calc Platelets bldOrdered By: Violet Olea on 06-25-2022 Platelets (Bld) [#/Vol] 226 10*3/uL 150-450 [facility] Serum or plasma albumin enmanuel urement (mass/volume)Ordered By: Dina Olea on 06-25-2022 Albumin [Mass/Vol] 3.2 g/dL 3.2-5.0 [facility] Serum or plasma albumin/glob ulin mass ratioOrdered By: Dina Olea on 06-25-2022 Albumin/Globulin [Mass ratio] 1.0 {ratio} 0.9-2.4 [facility] Serum or plasma calcium enmanuel urement (mass/volume)Ordered By: Dina Olea on 06-25-2022 Calcium [Mass/Vol] 9.4 mg/dL 8.5-10.1 [facility] Serum or plasma creatinine m easurement (mass/volume)Ordered By: Dina Olea on 06-25-2022 Creatinine [Mass/Vol] 0.66 mg/dL 0.55-1.02 [facility] Comment on above: The validity of the calculated GFR & GFRAA in patients over 70 years has not been determined. Clinical correlation is essential. Serum or plasma urea nitroge n measurement (mass/volume)Ordered By: Dina Olea on 06-25-2022 Urea nitrogen [Mass/Vol] 15 mg/dL 7-18 [facility] Thin prep Papanicolaou smear with manual screeningOrdered By: Dina Olea on 06-25-2022 Thin prep Papanicolaou smear with manual screening 24 U/L 15-37 [facility] Thin prep Papanicolaou smear with manual screening 1 5-15 [facility] SURGICAL PATHOLOGYon 023 Case Report Surgical Pathology R eport Case: [id number] Authorizing Provider: Owen Rivas MD Collected: 05/10/2022 10:16 AM Ordering Location: Ambulatory Surgery Received: 05/10/2022 12:55 PM Pathologist: Ino Mccain MD Specimen: RECTAL BIOPSY, Rectal mass bxs [facility] Diagnosis Comment The biopsy shows col onic mucosa with mucosal prolapse, ulceration and ischemic type changes. There is no evidence of dysplasia or malignancy. Multiple deeper tissue levels have been examined. The presence of a mass lesion is noted. 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 Clinical correlation is recommended. [facility] FINAL DIAGNOSIS A. Rectum, mass, bio psies: - Negative for malignancy; see comment - Fragments of colonic mucosa with ischemic change and ulceration. [facility] Gross Description A. RECTAL BIOPSY Received in formalin are multiple pieces of rendon, soft tissue aggregating to 1.6 x 0.3 x 0.3 cm. Totally submitted in one cassette. Gross examination performed at [facility], [address] [place] [address] FFS 05/10/2022 11:49 PM [facility] Performing Lab Diagnostic interpret ation performed at [facility], [address] [facility] [address] CLIA# [id number] Dental Laboratory Supervisor: Cipriano Falcon M.D. [facility] COLONOSCOPY SCREENINGon [facility] UA DIP, URINE (POC)on 2022 BILIRUBIN UA (POCT) Negative Negative [facility] CLARITY UA (POCT) Clear [facility] COLOR UA (POCT) Yellow [facility] GLUCOSE UA (POCT) Negative Negative mg/dL [facility] HEMOGLOBIN/BLOOD UA (POCT) Negative Negative [facility] KETONE UA (POCT) Negative Negative mg/dL [facility] LEUKOCYTES UA (POCT) Small Abnormal Negative [facility] NITRITE UA (POCT) Negative [facility] PH UA (POCT) 7.0 4.5 - 8.0 [facility] Protein Ql (U) Negative Negative mg/dL [facility] SPECIFIC GRAVITY UA (POCT) 1.010 1.005 - 1.030 [facility] UROBILINOGEN UA (POCT) 0.2 E.U./dL Jacqueline l E.U./dL [facility] UA DIP, URINE (POC)on 2022 BILIRUBIN UA (POCT) Negative Negative [facility] CLARITY UA (POCT) Clear [facility] COLOR UA (POCT) Yellow [facility] GLUCOSE UA (POCT) Negative Negative mg/dL [facility] HEMOGLOBIN/BLOOD UA (POCT) Trace-intact Abnormal Negative [facility] KETONE UA (POCT) Negative Negative mg/dL [facility] LEUKOCYTES UA (POCT) Negative Negative [facility] NITRITE UA (POCT) Negative Negative [facility] PH UA (POCT) 7.0 4.5 - 8.0 [facility] Protein Ql (U) Negative Negative mg/dL [facility] SPECIFIC GRAVITY UA (POCT) 1.010 1.005 - 1.030 [facility] UROBILINOGEN UA (POCT) 0.2 E.U./dL Jacqueline l E.U./dL [facility] Absolute lymphocyte countOrd ered By: Dr. Olea on 03-26-2022 Lymphocytes Auto (Unsp spec) [#/Vol] 1.54 10*3/uL 0.83-4.51 [facility] Basophil percentageOrdered B y: Dr. Olea on 03-26-2022 Basophils/100 WBC (Bld) 0.3 % 0-1 [facility] Bilirubin [Mass/Vol] 0.50 mg/dL 0.20-1.00 [facility] Comment on above: For patients on eltr ombopag therapy, use of Dimension [place] TBIL is not recommended. Chloride [Moles/Vol] 101 mmol/L 98-107 [facility] Eosinophils/100 WBC (Bld) 2.1 % 0-5 [facility] Glucose [Mass/Vol] 93 mg/dL 74-106 [facility] Neutrophils (Bld) [#/Vol] 3.4 10*3/uL 2.0-7.7 [facility] Neutrophils/100 WBC (Bld) 59.2 % 47-70 [facility] Potassium [Moles/Vol] 4.6 mmol/L 3.5-5.1 [facility] Protein [Mass/Vol] 6.6 g/dL 6.4-8.2 [facility] Sodium [Moles/Vol] 136 mmol/L 136-145 [facility] WBC (Bld) [#/Vol] 5.7 10*3/uL 4.4-11.0 [facility] Blood erythrocytes count (nu mber/volume)Ordered By: Dr. Olea on 03-26-2022 RBC (Bld) [#/Vol] 4.17 10*6/uL 4.2-5.4 [facility] Blood hemoglobin measurement (mass/volume)Ordered By: Dr. Olea on 03-26-2022 Hemoglobin (Bld) [Mass/Vol] 12.9 g/dL 12.0-15.0 [facility] Blood lymphocytes/100 leukoc ytesOrdered By: Dr. Olea on 03-26-2022 Lymphocytes/100 WBC (Bld) 26.9 % 19-41 [facility] Blood monocytes/100 leukocyt esOrdered By: Dr. Olea on 03-26-2022 Monocytes/100 WBC (Bld) 11.2 % 0-10 [facility] Blood platelet mean volumeOr dered By: Dr. Olea on 03-26-2022 Platelet mean volume (Bld) [Entitic vol] 11.0 fL 6.2-12.0 [facility] Determination of erythrocyte mean corpuscular volume (MCV)Ordered By: Dr. Olea on 03-26-2022 MCV (RBC) [Entitic vol] 96.6 fL 81-99 [facility] Hematocrit Auto (Bld) [Volum e fraction]Ordered By: Dr. Olea on 03-26-2022 Hematocrit (Bld) [Volume fraction] 40.3 % 37-47 [facility] Laboratory - Chemistry and C hemistry - challengeOrdered By: Dr. Olea on 03-26-2022 ALP [Catalytic activity/Vol] 111 U/L 45-117 [facility] ALT [Catalytic activity/Vol] 27 U/L 13-56 [facility] CO2 [Moles/Vol] 31.0 mmol/L 21.0-32.0 [facility] Globulin (S) [Mass/Vol] 3.3 g/dL 2.2-4.2 [facility] Urea nitrogen/Creatinine [Mass ratio] 19.7 mg/mg 10-20 [facility] Laboratory - Hematology and Cell countsOrdered By: Dr. Olea on 03-26-2022 Erythrocyte distribution width (RBC) [Entitic vol] 46.2 fL 35.1-43.9 [facility] Erythrocyte distribution width (RBC) [Ratio] 13.2 % 11.6-14.6 [facility] Immature granulocytes/100 WBC (Bld) 0.300 % 0.0-0.9 [facility] Comment on above: IG% - Immature Granu locytes (promyelocytes, myelocytes and metamyelocytes) > 1% indicates that a LEFT SHIFT is Present. MCH (RBC) [Entitic mass] 30.9 pg 27.0-32.0 [facility] Nucleated RBC/100 WBC (Bld) [Ratio] 0.3 % 0-5 [facility] MCHC Auto (RBC) [Mass/Vol]Or dered By: Dr. Olea on 03-26-2022 MCHC (RBC) [Mass/Vol] 32.0 g/dL 32-36 [facility] No Panel InformationOrdered By: Dr. Olea on 03-26-2022 Estimated GFR (MDRD) Amer 110 mL/min >60 [facility] Comment on above: GFR Calc Estimated GFR (MDRD) Non-Af Amer 91 mL/min >60 [facility] Comment on above: Non- GFR Calc Platelets bldOrdered By: Dr. Olea on 03-26-2022 Platelets (Bld) [#/Vol] 197 10*3/uL 150-450 [facility] Serum or plasma albumin enmanuel urement (mass/volume)Ordered By: Dr. Olea on 03-26-2022 Albumin [Mass/Vol] 3.3 g/dL 3.2-5.0 [facility] Serum or plasma albumin/glob ulin mass ratioOrdered By: Dr. Olea on 03-26-2022 Albumin/Globulin [Mass ratio] 1.0 {ratio} 0.9-2.4 [facility] Serum or plasma calcium enmanuel urement (mass/volume)Ordered By: Dr. Olea on 03-26-2022 Calcium [Mass/Vol] 9.2 mg/dL 8.5-10.1 [facility] Serum or plasma creatinine m easurement (mass/volume)Ordered By: Dr. Olea on 03-26-2022 Creatinine [Mass/Vol] 0.66 mg/dL 0.55-1.02 [facility] Comment on above: The validity of the calculated GFR & GFRAA in patients over 70 years has not been determined. Clinical correlation is essential. Serum or plasma urea nitroge n measurement (mass/volume)Ordered By: Dr. Olea on 03-26-2022 Urea nitrogen [Mass/Vol] 13 mg/dL 7-18 [facility] Thin prep Papanicolaou smear with manual screeningOrdered By: Dr. Olea on 03-26-2022 Thin prep Papanicolaou smear with manual screening 23 U/L 15-37 [facility] Thin prep Papanicolaou smear with manual screening 4 5-15 [facility] XR DEFECOGRAPHYon 03-08-2022 [facility] URINE CULTUREon 03-07-2022 Bacteria identified Cx Nom (U) 10,000 -<50,000 CFU/ml Mixed microbiota Abnormal [facility] Influenza virus A and B RNA and SARS-CoV-2 (COVID-19) N gene panel PRABHA+probe (Resp)on 03-06-2022 FLUAV RNA PRABHA+probe Ql (Unsp spec) Negative Negative for Influenza A by RT-PCR [facility] FLUBV RNA PRABHA+probe Ql (Unsp spec) Negative Negative for Influenza B by RT-PCR [facility] SARS-CoV-2 (COVID-19) RNA PRABHA+probe Ql (Resp) SARS-CoV-2 (Agent of COVID-19) Not Detected by RT-PCR or equivalent method. Not Detected [facility] UA DIP, URINE (POC)on 2022 BILIRUBIN UA (POCT) Negative Negative [facility] CLARITY UA (POCT) Clear [facility] COLOR UA (POCT) Yellow [facility] GLUCOSE UA (POCT) Negative Negative mg/dL [facility] HEMOGLOBIN/BLOOD UA (POCT) Negative Negative [facility] KETONE UA (POCT) Negative Negative mg/dL [facility] LEUKOCYTES UA (POCT) Negative Negative [facility] NITRITE UA (POCT) Negative Negative [facility] PH UA (POCT) 7.5 4.5 - 8.0 [facility] Protein Ql (U) Negative Negative mg/dL [facility] SPECIFIC GRAVITY UA (POCT) 1.010 1.005 - 1.030 [facility] UROBILINOGEN UA (POCT) 0.2 E.U./dL Jacqueline l E.U./dL [facility] UA DIP, URINE (POC)on 2021 BILIRUBIN UA (POCT) Negative Negative [facility] CLARITY UA (POCT) Clear [facility] COLOR UA (POCT) Light yellow [facility] GLUCOSE UA (POCT) Negative Negative mg/dL [facility] HEMOGLOBIN/BLOOD UA (POCT) Trace-intact Abnormal Negative [facility] KETONE UA (POCT) Negative Negative mg/dL [facility] LEUKOCYTES UA (POCT) Negative Negative [facility] NITRITE UA (POCT) Negative Negative [facility] PH UA (POCT) 7.0 4.5 - 8.0 [facility] Protein Ql (U) Negative Negative mg/dL [facility] SPECIFIC GRAVITY UA (POCT) 1.010 1.005 - 1.030 [facility] UROBILINOGEN UA (POCT) 0.2 E.U./dL Jacqueline l E.U./dL [facility] UA DIP, URINE (POC)on 2021 BILIRUBIN UA (POCT) Negative Negative [facility] CLARITY UA (POCT) Clear [facility] COLOR UA (POCT) Yellow [facility] GLUCOSE UA (POCT) Negative Negative mg/dL [facility] HEMOGLOBIN/BLOOD UA (POCT) Negative Negative [facility] KETONE UA (POCT) Negative Negative mg/dL [facility] LEUKOCYTES UA (POCT) Trace Abnormal Negative [facility] NITRITE UA (POCT) Negative Negative [facility] PH UA (POCT) 7.0 4.5 - 8.0 [facility] Protein Ql (U) Negative Negative mg/dL [facility] SPECIFIC GRAVITY UA (POCT) 1.010 1.005 - 1.030 [facility] UROBILINOGEN UA (POCT) 0.2 E.U./dL Jacqueline l E.U./dL [facility] UA DIP, URINE (POC)on 2021 BILIRUBIN UA (POCT) Negative Negative [facility] CLARITY UA (POCT) Clear [facility] COLOR UA (POCT) Yellow [facility] GLUCOSE UA (POCT) Negative Negative mg/dL [facility] HEMOGLOBIN/BLOOD UA (POCT) Negative Negative [facility] KETONE UA (POCT) Negative Negative mg/dL [facility] LEUKOCYTES UA (POCT) Trace Abnormal Negative [facility] NITRITE UA (POCT) Negative Negative [facility] PH UA (POCT) 6.5 4.5 - 8.0 [facility] Protein Ql (U) Negative Negative mg/dL [facility] SPECIFIC GRAVITY UA (POCT) 1.010 1.005 - 1.030 [facility] UROBILINOGEN UA (POCT) 0.2 E.U./dL Jacqueline l E.U./dL [facility] UA DIP, URINE (POC)on 2021 BILIRUBIN UA (POCT) Negative Negative [facility] CLARITY UA (POCT) Clear [facility] COLOR UA (POCT) Yellow [facility] GLUCOSE UA (POCT) Negative Negative mg/dL [facility] HEMOGLOBIN/BLOOD UA (POCT) Negative Negative [facility] KETONE UA (POCT) Negative Negative mg/dL [facility] LEUKOCYTES UA (POCT) Negative Negative [facility] NITRITE UA (POCT) Negative Negative [facility] PH UA (POCT) 7.5 4.5 - 8.0 [facility] Protein Ql (U) Negative Negative mg/dL [facility] SPECIFIC GRAVITY UA (POCT) 1.010 1.005 - 1.030 [facility] UROBILINOGEN UA (POCT) 0.2 E.U./dL Jacqueline l E.U./dL [facility] Absolute lymphocyte countOrd ered By: Dr. Olea on 01-01-2022 Lymphocytes Auto (Unsp spec) [#/Vol] 1.95 10*3/uL 0.83-4.51 [facility] Basophil percentageOrdered B y: Dr. Olea on 01-01-2022 Basophils/100 WBC (Bld) 0.7 % 0-1 [facility] Bilirubin [Mass/Vol] 0.30 mg/dL 0.20-1.00 [facility] Comment on above: For patients on eltr ombopag therapy, use of Dimension [place] TBIL is not recommended. Chloride [Moles/Vol] 105 mmol/L 98-107 [facility] Eosinophils/100 WBC (Bld) 6.7 % 0-5 [facility] Glucose [Mass/Vol] 99 mg/dL 74-106 [facility] Neutrophils (Bld) [#/Vol] 2.8 10*3/uL 2.0-7.7 [facility] Neutrophils/100 WBC (Bld) 46.1 % 47-70 [facility] Potassium [Moles/Vol] 4.4 mmol/L 3.5-5.1 [facility] Protein [Mass/Vol] 6.6 g/dL 6.4-8.2 [facility] Sodium [Moles/Vol] 140 mmol/L 136-145 [facility] WBC (Bld) [#/Vol] 6.0 10*3/uL 4.4-11.0 [facility] Blood erythrocytes count (nu mber/volume)Ordered By: Dr. Olea on 01-01-2022 RBC (Bld) [#/Vol] 4.07 10*6/uL 4.2-5.4 [facility] Blood hemoglobin measurement (mass/volume)Ordered By: Dr. Olea on 01-01-2022 Hemoglobin (Bld) [Mass/Vol] 12.9 g/dL 12.0-15.0 [facility] Blood lymphocytes/100 leukoc ytesOrdered By: Dr. Olea on 01-01-2022 Lymphocytes/100 WBC (Bld) 32.7 % 19-41 [facility] Blood monocytes/100 leukocyt esOrdered By: Dr. Olea on 01-01-2022 Monocytes/100 WBC (Bld) 13.1 % 0-10 [facility] Blood platelet mean volumeOr dered By: Dr. Olea on 01-01-2022 Platelet mean volume (Bld) [Entitic vol] 10.7 fL 6.2-12.0 [facility] Determination of erythrocyte mean corpuscular volume (MCV)Ordered By: Dr. Olea on 01-01-2022 MCV (RBC) [Entitic vol] 96.6 fL 81-99 [facility] Hematocrit Auto (Bld) [Volum e fraction]Ordered By: Dr. Olea on 01-01-2022 Hematocrit (Bld) [Volume fraction] 39.3 % 37-47 [facility] Laboratory - Chemistry and C hemistry - challengeOrdered By: Dr. Olea on 01-01-2022 ALP [Catalytic activity/Vol] 122 U/L 45-117 [facility] ALT [Catalytic activity/Vol] 25 U/L 13-56 [facility] CO2 [Moles/Vol] 31.0 mmol/L 21.0-32.0 [facility] Globulin (S) [Mass/Vol] 3.3 g/dL 2.2-4.2 [facility] Urea nitrogen/Creatinine [Mass ratio] 23.7 mg/mg 10-20 [facility] Laboratory - Hematology and Cell countsOrdered By: Dr. Olea on 01-01-2022 Erythrocyte distribution width (RBC) [Entitic vol] 50.4 fL 35.1-43.9 [facility] Erythrocyte distribution width (RBC) [Ratio] 14.6 % 11.6-14.6 [facility] Immature granulocytes/100 WBC (Bld) 0.700 % 0.0-0.9 [facility] Comment on above: IG% - Immature Granu locytes (promyelocytes, myelocytes and metamyelocytes) > 1% indicates that a LEFT SHIFT is Present. MCH (RBC) [Entitic mass] 31.7 pg 27.0-32.0 [facility] Nucleated RBC/100 WBC (Bld) [Ratio] 0 % 0-5 [facility] MCHC Auto (RBC) [Mass/Vol]Or dered By: Dr. Olea on 01-01-2022 MCHC (RBC) [Mass/Vol] 32.8 g/dL 32-36 [facility] No Panel InformationOrdered By: Dr. Olea on 01-01-2022 Estimated GFR (MDRD) Amer 116 mL/min >60 [facility] Comment on above: GFR Calc Estimated GFR (MDRD) Non-Af Amer 96 mL/min >60 [facility] Comment on above: Non- GFR Calc Platelets bldOrdered By: Dr. Olea on 01-01-2022 Platelets (Bld) [#/Vol] 265 10*3/uL 150-450 [facility] Serum or plasma albumin enmanuel urement (mass/volume)Ordered By: Dr. Olea on 01-01-2022 Albumin [Mass/Vol] 3.3 g/dL 3.2-5.0 [facility] Serum or plasma albumin/glob ulin mass ratioOrdered By: Dr. Olea on 01-01-2022 Albumin/Globulin [Mass ratio] 1.0 {ratio} 0.9-2.4 [facility] Serum or plasma calcium enmanuel urement (mass/volume)Ordered By: Dr. Olea on 01-01-2022 Calcium [Mass/Vol] 9.3 mg/dL 8.5-10.1 [facility] Serum or plasma creatinine m easurement (mass/volume)Ordered By: Dr. Olea on 01-01-2022 Creatinine [Mass/Vol] 0.63 mg/dL 0.55-1.02 [facility] Comment on above: The validity of the calculated GFR & GFRAA in patients over 70 years has not been determined. Clinical correlation is essential. Serum or plasma urea nitroge n measurement (mass/volume)Ordered By: Dr. Olea on 01-01-2022 Urea nitrogen [Mass/Vol] 15 mg/dL 7-18 [facility] Thin prep Papanicolaou smear with manual screeningOrdered By: Dr. Olea on 01-01-2022 Thin prep Papanicolaou smear with manual screening 22 U/L 15-37 [facility] Thin prep Papanicolaou smear with manual screening 4 5-15 [facility] No Panel Informationon 12-22 [facility] Absolute lymphocyte counton 10-30-2021 Lymphocytes Auto (Unsp spec) [#/Vol] 1.44 10*3/uL 0.83-4.51 [facility] Work Phone: Basophil percentageon 2021 Basophils/100 WBC (Bld) 0.4 % 0-1 [facility] Work Phone: Bilirubin [Mass/Vol] 0.30 mg/dL 0.20-1.00 [facility] Work Phone: Comment on above: For patients on eltr ombopag therapy, use of Dimension [place] TBIL is not recommended. Chloride [Moles/Vol] 103 mmol/L 98-107 [facility] Work Phone: Eosinophils/100 WBC (Bld) 2.1 % 0-5 [facility] Work Phone: Glucose [Mass/Vol] 78 mg/dL 74-106 [facility] Work Phone: Neutrophils (Bld) [#/Vol] 2.6 10*3/uL 2.0-7.7 [facility] Work Phone: Neutrophils/100 WBC (Bld) 55.4 % 47-70 [facility] Work Phone: Potassium [Moles/Vol] 4.4 mmol/L 3.5-5.1 [facility] Work Phone: Protein [Mass/Vol] 6.3 g/dL 6.4-8.2 [facility] Work Phone: Sodium [Moles/Vol] 141 mmol/L 136-145 [facility] Work Phone: WBC (Bld) [#/Vol] 4.7 10*3/uL 4.4-11.0 [facility] Work Phone: Blood erythrocytes count (nu mber/volume)on 10-30-2021 RBC (Bld) [#/Vol] 4.07 10*6/uL 4.2-5.4 [facility] Work Phone: Blood hemoglobin measurement (mass/volume)on 10-30-2021 Hemoglobin (Bld) [Mass/Vol] 12.4 g/dL 12.0-15.0 [facility] Work Phone: Blood lymphocytes/100 leukoc yteson 10-30-2021 Lymphocytes/100 WBC (Bld) 30.8 % 19-41 [facility] Work Phone: Blood monocytes/100 leukocyt eson 10-30-2021 Monocytes/100 WBC (Bld) 10.9 % 0-10 [facility] Work Phone: Blood platelet mean volumeon 10-30-2021 Platelet mean volume (Bld) [Entitic vol] 11.6 fL 6.2-12.0 [facility] Work Phone: Determination of erythrocyte mean corpuscular volume (MCV)on 10-30-2021 MCV (RBC) [Entitic vol] 95.3 fL 81-99 [facility] Work Phone: Hematocrit Auto (Bld) [Volum e fraction]on 10-30-2021 Hematocrit (Bld) [Volume fraction] 38.8 % 37-47 [facility] Work Phone: Laboratory - Chemistry and C hemistry - challengeon 10-30-2021 ALP [Catalytic activity/Vol] 94 U/L 45-117 [facility] Work Phone: ALT [Catalytic activity/Vol] 28 U/L 13-56 [facility] Work Phone: CO2 [Moles/Vol] 33.0 mmol/L 21.0-32.0 [facility] Work Phone: Globulin (S) [Mass/Vol] 3.2 g/dL 2.2-4.2 [facility] Work Phone: Urea nitrogen/Creatinine [Mass ratio] 17.7 mg/mg 10-20 [facility] Work Phone: Laboratory - Hematology and Cell countson 10-30-2021 Erythrocyte distribution width (RBC) [Entitic vol] 46.9 fL 35.1-43.9 [facility] Work Phone: Erythrocyte distribution width (RBC) [Ratio] 13.4 % 11.6-14.6 [facility] Work Phone: Immature granulocytes/100 WBC (Bld) 0.400 % 0.0-0.9 [facility] Work Phone: Comment on above: IG% - Immature Granu locytes (promyelocytes, myelocytes and metamyelocytes) > 1% indicates that a LEFT SHIFT is Present. MCH (RBC) [Entitic mass] 30.5 pg 27.0-32.0 [facility] Work Phone: Nucleated RBC/100 WBC (Bld) [Ratio] 0 % 0-5 [facility] Work Phone: MCHC Auto (RBC) [Mass/Vol]on 10-30-2021 MCHC (RBC) [Mass/Vol] 32.0 g/dL 32-36 [facility] Work Phone: No Panel Informationon 10-30 Estimated GFR (MDRD) Amer 118 mL/min >60 [facility] Work Phone: Comment on above: GFR Calc Estimated GFR (MDRD) Non-Af Amer 98 mL/min >60 [facility] Work Phone: Comment on above: Non- GFR Calc Platelets bldon 10-30-2021 Platelets (Bld) [#/Vol] 191 10*3/uL 150-450 [facility] Work Phone: Serum or plasma albumin enmanuel urement (mass/volume)on 10-30-2021 Albumin [Mass/Vol] 3.1 g/dL 3.2-5.0 [facility] Work Phone: Serum or plasma albumin/glob ulin mass ratioon 10-30-2021 Albumin/Globulin [Mass ratio] 1.0 {ratio} 0.9-2.4 [facility] Work Phone: Serum or plasma calcium enmanuel urement (mass/volume)on 10-30-2021 Calcium [Mass/Vol] 8.7 mg/dL 8.5-10.1 [facility] Work Phone: Serum or plasma creatinine m easurement (mass/volume)on 10-30-2021 Creatinine [Mass/Vol] 0.62 mg/dL 0.55-1.02 [facility] Work Phone: Comment on above: The validity of the calculated GFR & GFRAA in patients over 70 years has not been determined. Clinical correlation is essential. Serum or plasma urea nitroge n measurement (mass/volume)on 10-30-2021 Urea nitrogen [Mass/Vol] 11 mg/dL 7-18 [facility] Work Phone: Thin prep Papanicolaou smear with manual screeningon 10-30-2021 Thin prep Papanicolaou smear with manual screening 25 U/L 15-37 [facility] Work Phone: Thin prep Papanicolaou smear with manual screening 5 5-15 [facility] Work Phone: C. DIFFICILE PCRon C. difficile toxin genes PRABHA+probe Ql (Stl) Negative Negative for C. difficile toxin by PCR [facility] Gastrointestinal pathogens i dentified PRABHA+probe Nom (Stl)on 10-29-2021 Campylobacter sp DNA PRABHA+probe Nom (Unsp spec) Not detected Not Detected [facility] Salmonella sp DNA PRABHA+probe Ql (Unsp spec) Not detected Not Detected [facility] Shiga toxin stx gene PRABHA+probe Nom (Unsp spec) Not detected Not Detected [facility] Shigella sp DNA PRABHA+probe Ql (Unsp spec) Not detected Not Detected [facility] OCCULT BLD EXAM-DIAGon 10-29 Occult Blood Diagnostic Negative Negative [facility] Influenza virus A and B RNA and SARS-CoV-2 (COVID-19) N gene panel PRABHA+probe (Resp)on 10-28-2021 FLUAV RNA PRABHA+probe Ql (Unsp spec) Negative Negative for Influenza A by RT-PCR [facility] FLUBV RNA PRABHA+probe Ql (Unsp spec) Negative Negative for Influenza B by RT-PCR [facility] SARS-CoV-2 (COVID-19) RNA PRABHA+probe Ql (Resp) SARS-CoV-2 (Agent of COVID-19) Not Detected by RT-PCR or equivalent method. Not Detected [facility] No Panel Informationon 08-02 [facility] Absolute lymphocyte counton 08-01-2021 Lymphocytes Auto (Unsp spec) [#/Vol] 1.74 10*3/uL 0.83-4.51 [facility] Work Phone: Basophil percentageon 2021 Basophils/100 WBC (Bld) 0.6 % 0-1 [facility] Work Phone: Bilirubin [Mass/Vol] 0.30 mg/dL 0.20-1.00 [facility] Work Phone: Comment on above: For patients on eltr ombopag therapy, use of Dimension [place] TBIL is not recommended. Chloride [Moles/Vol] 109 mmol/L 98-107 [facility] Work Phone: Eosinophils/100 WBC (Bld) 2.4 % 0-5 [facility] Work Phone: Glucose [Mass/Vol] 91 mg/dL 74-106 [facility] Work Phone: Neutrophils (Bld) [#/Vol] 2.9 10*3/uL 2.0-7.7 [facility] Work Phone: Neutrophils/100 WBC (Bld) 54.8 % 47-70 [facility] Work Phone: Potassium [Moles/Vol] 4.3 mmol/L 3.5-5.1 [facility] Work Phone: Protein [Mass/Vol] 6.5 g/dL 6.4-8.2 [facility] Work Phone: Sodium [Moles/Vol] 142 mmol/L 136-145 [facility] Work Phone: WBC (Bld) [#/Vol] 5.4 10*3/uL 4.4-11.0 [facility] Work Phone: Blood erythrocytes count (nu mber/volume)on 08-01-2021 RBC (Bld) [#/Vol] 4.08 10*6/uL 4.2-5.4 [facility] Work Phone: Blood hemoglobin measurement (mass/volume)on 08-01-2021 Hemoglobin (Bld) [Mass/Vol] 12.7 g/dL 12.0-15.0 [facility] Work Phone: Blood lymphocytes/100 leukoc yteson 08-01-2021 Lymphocytes/100 WBC (Bld) 32.5 % 19-41 [facility] Work Phone: Blood monocytes/100 leukocyt eson 08-01-2021 Monocytes/100 WBC (Bld) 9.3 % 0-10 [facility] Work Phone: Blood platelet mean volumeon 08-01-2021 Platelet mean volume (Bld) [Entitic vol] 10.7 fL 6.2-12.0 [facility] Work Phone: Determination of erythrocyte mean corpuscular volume (MCV)on 08-01-2021 MCV (RBC) [Entitic vol] 98.0 fL 81-99 [facility] Work Phone: Hematocrit Auto (Bld) [Volum e fraction]on 08-01-2021 Hematocrit (Bld) [Volume fraction] 40.0 % 37-47 [facility] Work Phone: Laboratory - Chemistry and C hemistry - challengeon 08-01-2021 ALP [Catalytic activity/Vol] 119 U/L 45-117 [facility] Work Phone: ALT [Catalytic activity/Vol] 31 U/L 13-56 [facility] Work Phone: CO2 [Moles/Vol] 30.0 mmol/L 21.0-32.0 [facility] Work Phone: Globulin (S) [Mass/Vol] 3.3 g/dL 2.2-4.2 [facility] Work Phone: Urea nitrogen/Creatinine [Mass ratio] 29.7 mg/mg 10-20 [facility] Work Phone: Laboratory - Hematology and Cell countson 08-01-2021 Erythrocyte distribution width (RBC) [Entitic vol] 50.7 fL 35.1-43.9 [facility] Work Phone: Erythrocyte distribution width (RBC) [Ratio] 14.3 % 11.6-14.6 [facility] Work Phone: Immature granulocytes/100 WBC (Bld) 0.400 % 0.0-0.9 [facility] Work Phone: Comment on above: IG% - Immature Granu locytes (promyelocytes, myelocytes and metamyelocytes) > 1% indicates that a LEFT SHIFT is Present. MCH (RBC) [Entitic mass] 31.1 pg 27.0-32.0 [facility] Work Phone: Nucleated RBC/100 WBC (Bld) [Ratio] 0 % 0-5 [facility] Work Phone: MCHC Auto (RBC) [Mass/Vol]on 08-01-2021 MCHC (RBC) [Mass/Vol] 31.8 g/dL 32-36 [facility] Work Phone: No Panel Informationon 08-01 Estimated GFR (MDRD) Amer 130 mL/min >60 [facility] Work Phone: Comment on above: GFR Calc Estimated GFR (MDRD) Non-Af Amer 107 mL/min >60 [facility] Work Phone: Comment on above: Non- GFR Calc Platelets bldon 08-01-2021 Platelets (Bld) [#/Vol] 218 10*3/uL 150-450 [facility] Work Phone: Serum or plasma albumin enmanuel urement (mass/volume)on 08-01-2021 Albumin [Mass/Vol] 3.2 g/dL 3.2-5.0 [facility] Work Phone: Serum or plasma albumin/glob ulin mass ratioon 08-01-2021 Albumin/Globulin [Mass ratio] 1.0 {ratio} 0.9-2.4 [facility] Work Phone: Serum or plasma calcium enmanuel urement (mass/volume)on 08-01-2021 Calcium [Mass/Vol] 8.9 mg/dL 8.5-10.1 [facility] Work Phone: Serum or plasma creatinine m easurement (mass/volume)on 08-01-2021 Creatinine [Mass/Vol] 0.57 mg/dL 0.55-1.02 [facility] Work Phone: Comment on above: The validity of the calculated GFR & GFRAA in patients over 70 years has not been determined. Clinical correlation is essential. Serum or plasma urea nitroge n measurement (mass/volume)on 08-01-2021 Urea nitrogen [Mass/Vol] 17 mg/dL 7-18 [facility] Work Phone: Thin prep Papanicolaou smear with manual screeningon 08-01-2021 Thin prep Papanicolaou smear with manual screening 26 U/L 15-37 [facility] Work Phone: Thin prep Papanicolaou smear with manual screening 3 5-15 [facility] Work Phone: UA DIP, URINE (POC)on 2021 BILIRUBIN UA (POCT) Negative Negative [facility] CLARITY UA (POCT) Clear [facility] COLOR UA (POCT) Yellow [facility] GLUCOSE UA (POCT) Negative Negative mg/dL [facility] HEMOGLOBIN/BLOOD UA (POCT) Negative Negative [facility] KETONE UA (POCT) Negative Negative mg/dL [facility] LEUKOCYTES UA (POCT) Negative Negative [facility] NITRITE UA (POCT) Negative Negative [facility] PH UA (POCT) 7.0 4.5 - 8.0 [facility] Protein Ql (U) Negative Negative mg/dL [facility] SPECIFIC GRAVITY UA (POCT) 1.010 1.005 - 1.030 [facility] UROBILINOGEN UA (POCT) 0.2 E.U./dL Jacqueline l E.U./dL [facility] XR FOOT GENERAL 3V AP/LAT/OB L LEFTon 07-20-2021 [facility] XR Foot - left AP and [...] Impression: 1. No acute fracture or dislocation. Medical Staff Manager: JAIME Transcribe Date/Time: Jul 20 2021 3:12P Dictated by : ESTRELLITA CHAVEZ MD This examination was interpreted and the report reviewed and electronically signed by: ESTRELLITA CHAVEZ MD on Jul 20 2021 3:16PM EST [email or web address] N OF RADIOLOGY Provider, [facility] - 07/20/2021 * * *Final Report* * [...] Impression: 1. No acute fracture or dislocation. Medical Staff Manager: PSCB Transcribe Date/Time: Jul 20 2021 3:12P Dictated by : ESTRELLITA CHAVEZ MD This examination was interpreted and the report reviewed and electronically signed by: ESTRELLITA CHAVEZ MD on Jul 20 2021 3:16PM EST [facility] Radiology Study observation (narrative) [facility] XR Foot - left AP and Latera l and obliqueOrdered By: Cc Provider on 07-20-2021 [facility] XR KNEE POST OP 3V AP/LAT/ME RCHANT BILATERALon 07-17-2021 [facility] No Panel Informationon 06-09 Radiology Study observation (narrative) [facility] UA DIP, URINE (POC)on 2021 BILIRUBIN UA (POCT) Negative Negative [facility] [facility] CLAR[facility] UA (POCT) Clear [facility] COLOR UA (POCT) Yellow [facility] GLUCOSE UA (POCT) Negative Negative mg/dL [facility] HEMOGLOBIN/BLOOD UA (POCT) Trace-intact Abnormal Negative [facility] KETONE UA (POCT) Negative Negative mg/dL [facility] LEUKOCYTES UA (POCT) Trace Abnormal Negative [facility] NITRITE UA (POCT) Negative Negative [facility] PH UA (POCT) 7.5 4.5 - 8.0 [facility] Protein Ql (U) Negative Negative mg/dL [facility] SPECIFIC GRAVITY UA (POCT) 1.010 1.005 - 1.030 [facility] UROBILINOGEN UA (POCT) 0.2 E.U./dL Jacqueline l E.U./dL [facility] XR Ribs - left Views and Marian st PAon 06-09-2021 IMPRESSION: No acute radiographic abnormality. Medical Staff Manager: [facility] Transcribe Date/Time: Jun 09 2021 4:24P Dictated by : ESTRELLITA CHAVEZ MD This examination was interpreted and the report reviewed and electronically signed by: ESTRELLITA CHAVEZ MD on Jun 09 2021 4:27PM [facility] DIVISION OF RADIOLOGY * * *Final [...] No acute fracture DIVISION OF RADIOLOGY Provider, [facility] - 06/09/2021 * * *Final Report* * [...] fracture IMPRESSION IMPRESSION: No acute radiographic abnormality. 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 Medical Staff Manager: PSC Transcribe Date/Time: Jun 09 2021 4:30P Dictated by : EMRE NARANJO MD This examination was interpreted and the report reviewed and electronically signed by: EMRE NARANJO MD on Jun 09 2021 4:32PM [facility] DIVISION OF RADIOLOGY * * *Final [...] bony destructive process. DIVISION OF RADIOLOGY Provider, [facility] - 06/09/2021 * * *Final Report* [...] degenerative changes with multilevel disc space narrowing. Medical Staff Manager: [facility] Transcribe Date/Time: Jun 09 2021 4:30P Dictated by : EMRE NARANJO MD This examination was interpreted and the report reviewed and electronically signed by: EMRE NARANJO MD on Jun 09 2021 4:32PM EST [facility] XR Hand - bilateral PA and L ateral and Obliqueon 05-02-2021 IMPRESSION: 1. 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 Medical Staff Manager: [facility] Transcribe Date/Time: May 02 2021 4:50P Dictated by : STACI ROJO MD This examination was interpreted and the report reviewed and electronically signed by: STACI ROJO MD on May 02 2021 4:52PM [facility] DIVISION OF RADIOLOGY * * *Final [...] fifth MCP joints. DIVISION OF RADIOLOGY Provider, [facility] - 05/02/2021 * * *Final Report* * [...] nonerosive degenerative changes of the bilateral hands. Medical Staff Manager: PSCB Transcribe Date/Time: May 02 2021 4:50P Dictated by : STACI ROJO MD This examination was interpreted and the report reviewed and electronically signed by: STACI ROJO MD on May 02 2021 4:52PM EST [facility] Radiology Study observation (narrative) [facility] XR Hand - bilateral PA and L ateral and ObliqueOrdered By: [facility]cf Provider on 05-02-2021 [facility] No Panel Informationon 04-10 Radiology Study observation (narrative) [facility] XR Chest PA and Lateralon IMPRESSION: No acute radiographic abnormality. Medical Staff Manager: JAIME Transcribe Date/Time: Apr 10 2021 3:30P Dictated by : RAUL MUNSON MD This examination was interpreted and the report reviewed and electronically signed by: RAUL MUNSON MD on Apr 10 2021 3:31PM [facility] DIVISION OF RADIOLOGY * * *Final [...] the thoracic spine. DIVISION OF RADIOLOGY Provider, [facility] - 04/10/2021 * * *Final Report* [...] spine. IMPRESSION IMPRESSION: No acute radiographic abnormality. Medical Staff Manager: JAIME Transcribe Date/Time: Apr 10 2021 3:30P Dictated by : RAUL MUNSON MD This examination was interpreted and the report reviewed and electronically signed by: RAUL MUNSON MD on Apr 10 2021 3:31PM EST [facility] XR Pelvis and Hip - left AP and Lateral frogon 04-10-2021 IMPRESSION: Mild hip degenerative changes. Medical Staff Manager: JAIME Transcribe Date/Time: Apr 10 2021 3:32P [...] lower lumbar spine. DIVISION OF RADIOLOGY Provider, [facility] - 04/10/2021 * * *Final Report* [...] spine. IMPRESSION IMPRESSION: Mild hip degenerative changes. Medical Staff Manager: PSCB Transcribe Date/Time: Apr 10 2021 3:32P Dictated by : RAUL MUNSON MD This examination was interpreted and the report reviewed and electronically signed by: RAUL MUNSON MD on Apr 10 2021 3:32PM EST [facility] XR Pelvis and Hip - left AP and Lateral frogOrdered By: Ccf Provider on 04-10-2021 [facility] Laboratory - Microbiology an d Antimicrobial susceptibilityon 03-25-2021 SARS-CoV-2 (COVID-19) RNA PRABHA+probe Ql (Unsp spec) Detected Not Detect [facility] Work Phone: Comment on above: Normal Reference [...] and Lateralon IMPRESSION: No acute radiographic abnormality. Medical Staff Manager: PSCB Transcribe Date/Time: Oct 03 2020 1:41P Dictated by : EMRE NARANJO MD This examination was interpreted and the report reviewed and electronically signed by: EMRE NARANJO MD on Oct 03 2020 1:42PM [facility] DIVISION OF RADIOLOGY * * *Final [...] in the spine. DIVISION OF RADIOLOGY Provider, [facility] [place] - 10/03/2020 * * *Final Report* * [...] spine. IMPRESSION IMPRESSION: No acute radiographic abnormality. Medical Staff Manager: PSCB Transcribe Date/Time: Oct 03 2020 1:41P Dictated by : EMRE NARANJO MD This examination was interpreted and the report reviewed and electronically signed by: EMRE NARANJO MD on Oct 03 2020 1:42PM EST [facility] Radiology Study observation (narrative) [facility] XR Chest PA and LateralOrder ed By: [facility] Provider on 10-03-2020 [facility] Large Joint Arthro/Inj: L kn ee joint [facility] Vital Signs Date Time Vital Sign Value Performing Clinician Wendy snyder 11-14-2024 11:130400 Body mass index (BMI) [Ratio] 25.16 kg/m2 Abigail Balderas APRN.CNP Work Phone: [facility] 11-14-2024 11:13040 Body temperature 98.2 [degF] Abigail Balderas APRN.CNP Work Phone: [facility] 11-14-2024 11:13040 Body weight 54.6 kg Abigail Balderas APRN.CNP Work Phone: [facility] 11-14-2024 11:130400 Diastolic blood pressure 60 mm[Hg] Abigail Praisler-Wood ENGINE HEAD REPAIRER.IS ARCHITECT Work Phone: [facility] 11-14-2024 11:13-0400 Heart rate 66 /min Abigail Praisler-Wood ENGINE HEAD REPAIRER.IS ARCHITECT Work Phone: [facility] 11-14-2024 11:13-0400 Respiratory rate 16 /min Abigail Praisler-Wood ENGINE HEAD REPAIRER.IS ARCHITECT Work Phone: [facility] 11-14-2024 11:13-0400 SaO2% (BldA) [Mass fraction] 97 % Abigail Praisler-Wood ENGINE HEAD REPAIRER.IS ARCHITECT Work Phone: [facility] 11-14-2024 11:13-0400 Systolic blood pressure 114 mm[Hg] Abigail Praisler-Wood ENGINE HEAD REPAIRER.IS ARCHITECT Work Phone: [facility] 11-11-2024 09:53-0400 Body mass index (BMI) [Ratio] 24.66 kg/m2 Angeline Cory ENGINE HEAD REPAIRER.IS ARCHITECT Work Phone: [facility] 11-11-2024 09:53-0400 Body weight 53.52 kg Angeline Cory ENGINE HEAD REPAIRER.IS ARCHITECT Work Phone: [facility] 11-11-2024 09:53-0400 Diastolic blood pressure 60 mm[Hg] Angeline Cory ENGINE HEAD REPAIRER.IS ARCHITECT Work Phone: [facility] 11-11-2024 09:53-0400 Heart rate 48 /min Angeline Cory ENGINE HEAD REPAIRER.IS ARCHITECT Work Phone: [facility] 11-11-2024 09:53-0400 SaO2% (BldA) [Mass fraction] 99 % Angeline Cory ENGINE HEAD REPAIRER.IS ARCHITECT Work Phone: [facility] 11-11-2024 09:53-0400 Systolic blood pressure 130 mm[Hg] Angeline Cory ENGINE HEAD REPAIRER.IS ARCHITECT Work Phone: [facility] 11-04-2024 18:29-0400 Body temperature 98 [degF] Dr. Edenilson Nicholson DO Work Phone: [facility] 11-04-2024 18:29-0400 Diastolic blood pressure 67 mm[Hg] Dr. Edenilson Nicholson DO Work Phone: [facility] 11-04-2024 18:29-0400 Heart rate 59 /min Dr. Edenilson Nicholson DO Work Phone: [facility] 11-04-2024 18:29-0400 Respiratory rate 14 /min Dr. Edenilson Nicholson DO Work Phone: 6(008)478-572025 [place] [address] 11-04-2024 18:29-0400 SaO2% (BldA) [Mass fraction] 97 % Dr. Edenilson Nicholson DO Work Phone: 5(701)399-647925 [place] [address] 11-04-2024 18:29-0400 Systolic blood pressure 140 mm[Hg] Dr. Edenilson Nicholson DO Work Phone: 2(171)885-182125 [place] [address] 11-04-2024 16:20-0400 Body height 152.[address] Edenilson Nicholson DO Work Phone: 4(562)752-531025 [place] [address] 11-04-2024 16:20-0400 Body mass index (BMI) [Ratio] 22.2 kg/m2 Dr. Edenilson Nicholson DO Work Phone: 4(731)467-276725 [place] [address] 11-04-2024 16:20-0400 Body weight 51.[address] Edenilson Nicholson DO Work Phone: 2(739)922-890825 [place] [address] 09-22-2024 13:18-0400 Body mass index (BMI) [Ratio] 24.37 kg/m2 Saamntha Jordan PA-C Work Phone: [facility] 09-22-2024 13:18-0400 Body weight 52.89 kg Samantha Jordan PA-C Work Phone: [facility] 09-22-2024 13:18-0400 Diastolic blood pressure 65 mm[Hg] Samantha Jordan PA-C Work Phone: [facility] 09-22-2024 13:18-0400 Heart rate 50 /min Samantha Jordan PA-C Work Phone: [facility] 09-22-2024 13:18-0400 Respiratory rate 16 /min Samantha Julian PA-C Work Phone: [facility] 09-22-2024 13:18-0400 SaO2% (BldA) [Mass fraction] 99 % Samanthaluther Blairghislaine PA-C Work Phone: [facility] 09-22-2024 13:18-0400 Systolic blood pressure 126 mm[Hg] Samantha Jordan PA-C Work Phone: [facility] 08-19-2024 10:02-0400 Body height 147.3 cm To Duran MD Work Phone: [facility] 08-19-2024 10:02-0400 Body mass index (BMI) [Ratio] 24.29 kg/m2 To Duran MD Work Phone: [facility] 08-19-2024 10:02-0400 Body weight 52.71 kg To Duran MD Work Phone: [facility] 08-19-2024 10:02-0400 Diastolic blood pressure 60 mm[Hg] To Duran MD Work Phone: [facility] 08-19-2024 10:02-0400 Heart rate 50 /min To Duran MD Work Phone: [facility] 08-19-2024 10:02-0400 SaO2% (BldA) [Mass fraction] 97 % To Duran MD Work Phone: [facility] 08-19-2024 10:02-0400 Systolic blood pressure 112 mm[Hg] To Duran MD Work Phone: [facility] 08-14-2024 13:41-0400 Body temperature 97.8 [degF] Dr. Edenilson Nicholson DO Work Phone: [facility] 08-14-2024 13:41-0400 Diastolic blood pressure 71 mm[Hg] Dr. Edenilson Nicholson DO Work Phone: 2(821)694-625525 [place] [address] 08-14-2024 13:41-0400 Heart rate 67 /min Dr. Edenilson Nicholson DO Work Phone: 6(327)439-779049 [place] [address] 08-14-2024 13:41-0400 Respiratory rate 18 /min Dr. Edenilson Nicholson DO Work Phone: 7(070)321-576749 [place] [address] 08-14-2024 13:41-0400 SaO2% (BldA) [Mass fraction] 97 % Dr. Edenilson Nicholson DO Work Phone: 9(245)091-845349 [place] [address] 08-14-2024 13:41-0400 Systolic blood pressure 131 mm[Hg] Dr. Edenilson Nicholson DO Work Phone: 6(886)716-355749 [place] [address] 08-14-2024 13:03-0400 Body height 154.[address] Edenilson Nicholson DO Work Phone: 3(005)858-253149 [place] [address] 08-14-2024 13:03-0400 Body weight 52.[address] Edenilson Nicholson DO Work Phone: 2(744)442-079949 [place] [address] 08-14-2024 10:18-0400 Body mass index (BMI) [Ratio] 21.7 kg/m2 Dr. Edenilson Nicholson DO Work Phone: 4(274)193-349449 [place] [address] 08-13-2024 21:12-0400 Body temperature 98 [degF] Dr. Edenilson Nicholson DO Work Phone: 1(306)587-620549 [place] [address] 08-13-2024 21:12-0400 Diastolic blood pressure 73 mm[Hg] Dr. Edenilson Nicholson DO Work Phone: 4(821)962-259549 [place] [address] 08-13-2024 21:12-0400 Heart rate 59 /min Dr. Edenilson Nicholson DO Work Phone: 8(414)487-333049 [place] [address] 08-13-2024 21:12-0400 Respiratory rate 14 /min Dr. Edenilson Nicholson DO Work Phone: 0(878)548-470149 [place] [address] 08-13-2024 21:12-0400 SaO2% (BldA) [Mass fraction] 100 % Dr. Edenilson Nicholson DO Work Phone: [facility] 08-13-2024 21:12-0400 Systolic blood pressure 165 mm[Hg] Dr. Edenilson Nicholson DO Work Phone: [facility] 08-13-2024 18:11-0400 Body height 154.[address] Edenilson Nicholson DO Work Phone: [facility] 08-13-2024 18:11-0400 Body mass index (BMI) [Ratio] 22.8 kg/m2 Dr. Edenilson Nicholson DO Work Phone: [facility] 08-13-2024 18:11-0400 Body weight [address] Edenilson Nicholson DO Work Phone: [facility] 08-08-2024 14:07-0400 Body mass index (BMI) [Ratio] 25.11 kg/m2 America Moomaw ENGINE HEAD REPAIRER.IS ARCHITECT Work Phone: [facility] 08-08-2024 14:07-0400 Body temperature 97.7 [degF] America Moomaw ENGINE HEAD REPAIRER.IS ARCHITECT Work Phone: [facility] 08-08-2024 14:07-0400 Body weight 54.5 kg America Moomaw ENGINE HEAD REPAIRER.IS ARCHITECT Work Phone: [facility] 08-08-2024 14:07-0400 Diastolic blood pressure 72 mm[Hg] America Moomaw ENGINE HEAD REPAIRER.IS ARCHITECT Work Phone: [facility] 08-08-2024 14:07-0400 Heart rate 57 /min America Moomaw ENGINE HEAD REPAIRER.IS ARCHITECT Work Phone: [facility] 08-08-2024 14:07-0400 Respiratory rate 19 /min America Moomaw ENGINE HEAD REPAIRER.IS ARCHITECT Work Phone: [facility] 08-08-2024 14:07-0400 SaO2% (BldA) [Mass fraction] 97 % America Moomaw ENGINE HEAD REPAIRER.IS ARCHITECT Work Phone: [facility] 08-08-2024 14:07-0400 Systolic blood pressure 140 mm[Hg] America Moomaw ENGINE HEAD REPAIRER.IS ARCHITECT Work Phone: [facility] 08-04-2024 15:53-0400 Body mass index (BMI) [Ratio] 25.62 kg/m2 Krislyn Aberegg PA Work Phone: [facility] 08-04-2024 15:53-0400 Body temperature 97.7 [degF] Krislyn Aberegg PA Work Phone: [facility] 08-04-2024 15:53-0400 Body weight 55.6 kg Krislyn Aberegg PA Work Phone: [facility] 08-04-2024 15:53-0400 Diastolic blood pressure 62 mm[Hg] Krislyn Aberegg PA Work Phone: [facility] 08-04-2024 15:53-0400 Heart rate 64 /min Krislyn Aberegg PA Work Phone: [facility] 08-04-2024 15:53-0400 Respiratory rate 16 /min Krislyn Aberegg PA Work Phone: [facility] 08-04-2024 15:53-0400 SaO2% (BldA) [Mass fraction] 97 % Krislyn Aberegg PA Work Phone: [facility] 08-04-2024 15:53-0400 Systolic blood pressure 102 mm[Hg] Krislyn Aberegg PA Work Phone: [facility] 06-30-2024 15:50-0400 Body mass index (BMI) [Ratio] 25.57 kg/m2 Lani Clutter PA-C Work Phone: [facility] 06-30-2024 15:50-0400 Body temperature 98.91 [degF] Lani Clutter PA-C Work Phone: [facility] 06-30-2024 15:50-0400 Body weight 55.5 kg Lani Clutter PA-C Work Phone: [facility] 06-30-2024 15:50-0400 Diastolic blood pressure 68 mm[Hg] Lani Clutter PA-C Work Phone: [facility] 06-30-2024 15:50-0400 Heart rate 66 /min Lani Clutter PA-C Work Phone: [facility] 06-30-2024 15:50-0400 Respiratory rate 16 /min Lani Clutter PA-C Work Phone: [facility] 06-30-2024 15:50-0400 SaO2% (BldA) [Mass fraction] 96 % Lani Clutter PA-C Work Phone: [facility] 06-30-2024 15:50-0400 Systolic blood pressure 112 mm[Hg] Lani Clutter PA-C Work Phone: [facility] 06-08-2024 11:45-0400 Body mass index (BMI) [Ratio] 24.87 kg/m2 Edenilson Nicholson DO Work Phone: [facility] 06-08-2024 11:45-0400 Body temperature 97 [degF] Edenilson Nicholson DO Work Phone: [facility] 06-08-2024 11:45-0400 Body weight 53.98 kg Edenilson Nicholson DO Work Phone: [facility] 06-08-2024 11:45-0400 Diastolic blood pressure 80 mm[Hg] Edenilson Nicholson DO Work Phone: [facility] 06-08-2024 11:45-0400 Heart rate 60 /min Edenilson Nicholson DO Work Phone: [facility] 06-08-2024 11:45-0400 Respiratory rate 16 /min Edenilson Nicholson DO Work Phone: [facility] 06-08-2024 11:45-0400 Systolic blood pressure 120 mm[Hg] Edenilson Nicholson DO Work Phone: [facility] 06-02-2024 11:07-0400 Body mass index (BMI) [Ratio] 24.92 kg/m2 Angeline Ray APRN.CNP Work Phone: [facility] 06-02-2024 11:07-0400 Body temperature 97.3 [degF] Angeline Cory ENGINE HEAD REPAIRER.IS ARCHITECT Work Phone: [facility] 06-02-2024 11:07-0400 Body weight 54.09 kg Angeline Cory ENGINE HEAD REPAIRER.IS ARCHITECT Work Phone: [facility] 06-02-2024 11:07-0400 Diastolic blood pressure 72 mm[Hg] Angeline Cory ENGINE HEAD REPAIRER.IS ARCHITECT Work Phone: [facility] 06-02-2024 11:07-0400 Heart rate 51 /min Angeline Cory ENGINE HEAD REPAIRER.IS ARCHITECT Work Phone: [facility] 06-02-2024 11:07-0400 SaO2% (BldA) [Mass fraction] 99 % Angeline Cory ENGINE HEAD REPAIRER.IS ARCHITECT Work Phone: [facility] 06-02-2024 11:07-0400 Systolic blood pressure 120 mm[Hg] Angeline Cory ENGINE HEAD REPAIRER.IS ARCHITECT Work Phone: [facility] 05-06-2024 10:16-0500 Body mass index (BMI) [Ratio] 25.41 kg/m2 Kandi Park ENGINE HEAD REPAIRER.IS ARCHITECT Work Phone: [facility] 05-06-2024 10:16-0500 Body temperature 98.2 [degF] Kandi Park ENGINE HEAD REPAIRER.IS ARCHITECT Work Phone: [facility] 05-06-2024 10:16-0500 Body weight 55.16 kg Kandi Park ENGINE HEAD REPAIRER.IS ARCHITECT Work Phone: [facility] 05-06-2024 10:16-0500 Diastolic blood pressure 62 mm[Hg] Kandi Park ENGINE HEAD REPAIRER.IS ARCHITECT Work Phone: [facility] 05-06-2024 10:16-0500 Heart rate 54 /min Kandi Park ENGINE HEAD REPAIRER.IS ARCHITECT Work Phone: [facility] 03-05-2025 10:16-0500 Respiratory rate 12 /min Kandi Park ENGINE HEAD REPAIRER.IS ARCHITECT Work Phone: [facility] 05-06-2024 10:16-0500 SaO2% (BldA) [Mass fraction] 98 % Kandi Park ENGINE HEAD REPAIRER.IS ARCHITECT Work Phone: [facility] 05-06-2024 10:16-0500 Systolic blood pressure 110 mm[Hg] Kandi Park ENGINE HEAD REPAIRER.IS ARCHITECT Work Phone: [facility] 04-26-2024 12:59-0500 Body mass index (BMI) [Ratio] 25.76 kg/m2 Sherrie Christian ENGINE HEAD REPAIRER.IS ARCHITECT Work Phone: [facility] 04-26-2024 12:59-0500 Body temperature 97.9 [degF] Sherrie Gonzales ENGINE HEAD REPAIRER.IS ARCHITECT Work Phone: [facility] 04-26-2024 12:59-0500 Body weight 55.9 kg Sherrie Gonzales ENGINE HEAD REPAIRER.IS ARCHITECT Work Phone: [facility] 04-26-2024 12:59-0500 Diastolic blood pressure 68 mm[Hg] Sherrie Christian ENGINE HEAD REPAIRER.IS ARCHITECT Work Phone: [facility] 04-26-2024 12:59-0500 Heart rate 60 /min Sherrie Christian ENGINE HEAD REPAIRER.IS ARCHITECT Work Phone: [facility] 04-26-2024 12:59-0500 Respiratory rate 20 /min Sherrie Gonzales ENGINE HEAD REPAIRER.IS ARCHITECT Work Phone: [facility] 04-26-2024 12:59-0500 SaO2% (BldA) [Mass fraction] 97 % Sherrie Gonzales ENGINE HEAD REPAIRER.IS ARCHITECT Work Phone: [facility] 04-26-2024 12:59-0500 Systolic blood pressure 120 mm[Hg] Sherrie Christian ENGINE HEAD REPAIRER.IS ARCHITECT Work Phone: [facility] 04-15-2024 12:23-0500 Body mass index (BMI) [Ratio] 25.67 kg/m2 To Duran MD Work Phone: [facility] 04-15-2024 12:23-0500 Body temperature 98.2 [degF] To Duran MD Work Phone: [facility] 04-15-2024 12:23-0500 Body weight 55.7 kg To Duran MD Work Phone: [facility] 04-15-2024 12:23-0500 Diastolic blood pressure 62 mm[Hg] To Duran MD Work Phone: [facility] 04-15-2024 12:23-0500 Heart rate 54 /min To Duran MD Work Phone: [facility] 04-15-2024 12:23-0500 Respiratory rate 16 /min To Duran MD Work Phone: [facility] 04-15-2024 12:23-0500 SaO2% (BldA) [Mass fraction] 98 % To Duran MD Work Phone: [facility] 04-15-2024 12:23-0500 Systolic blood pressure 128 mm[Hg] To Duran MD Work Phone: [facility] 03-25-2024 11:04-0500 Body mass index (BMI) [Ratio] 25.76 kg/m2 Angeline Cory ENGINE HEAD REPAIRER.IS ARCHITECT Work Phone: [facility] 03-25-2024 11:04-0500 Body weight 55.9 kg Angeline Cory ENGINE HEAD REPAIRER.IS ARCHITECT Work Phone: [facility] 03-25-2024 11:04-0500 Diastolic blood pressure 64 mm[Hg] Angeline Cory ENGINE HEAD REPAIRER.IS ARCHITECT Work Phone: [facility] 03-25-2024 11:04-0500 Heart rate 53 /min Angeline Cory ENGINE HEAD REPAIRER.IS ARCHITECT Work Phone: [facility] 03-25-2024 11:04-0500 Respiratory rate 16 /min Angeline Cory ENGINE HEAD REPAIRER.IS ARCHITECT Work Phone: [facility] 03-25-2024 11:04-0500 SaO2% (BldA) [Mass fraction] 99 % Angeline Cory ENGINE HEAD REPAIRER.IS ARCHITECT Work Phone: [facility] 03-25-2024 11:04-0500 Systolic blood pressure 130 mm[Hg] Angeline Cory ENGINE HEAD REPAIRER.IS ARCHITECT Work Phone: [facility] 01-25-2024 11:39-0500 Body mass index (BMI) [Ratio] 25.34 kg/m2 America Moomaw ENGINE HEAD REPAIRER.IS ARCHITECT Work Phone: [facility] 01-25-2024 11:39-0500 Body temperature 97.5 [degF] America Moomaw ENGINE HEAD REPAIRER.IS ARCHITECT Work Phone: [facility] 01-25-2024 11:39-0500 Body weight 55 kg America Moomaw ENGINE HEAD REPAIRER.IS ARCHITECT Work Phone: [facility] 01-25-2024 11:39-0500 Diastolic blood pressure 82 mm[Hg] America Moomaw ENGINE HEAD REPAIRER.IS ARCHITECT Work Phone: [facility] 01-25-2024 11:39-0500 Heart rate 63 /min America Moomaw ENGINE HEAD REPAIRER.IS ARCHITECT Work Phone: [facility] 01-25-2024 11:39-0500 Respiratory rate 18 /min America Moomaw ENGINE HEAD REPAIRER.IS ARCHITECT Work Phone: [facility] 01-25-2024 11:39-0500 SaO2% (BldA) [Mass fraction] 97 % America Moomaw ENGINE HEAD REPAIRER.IS ARCHITECT Work Phone: [facility] 01-25-2024 11:39-0500 Systolic blood pressure 146 mm[Hg] America Moomaw ENGINE HEAD REPAIRER.IS ARCHITECT Work Phone: [facility] 01-22-2024 10:45-0500 Body mass index (BMI) [Ratio] 25.07 kg/m2 Edenilson Nicholson DO Work Phone: [facility] 01-22-2024 10:45-0500 Body temperature 96.21 [degF] Edenilson Nicholson DO Work Phone: [facility] 01-22-2024 10:45-0500 Body weight 54.4 kg Edenilson Nicholson DO Work Phone: [facility] 01-22-2024 10:45-0500 Diastolic blood pressure 72 mm[Hg] Edenilson Nicholson DO Work Phone: [facility] 01-22-2024 10:45-0500 Heart rate 60 /min Edenilson Nicholson DO Work Phone: [facility] 01-22-2024 10:45-0500 Respiratory rate 16 /min Edenilson Nicholson DO Work Phone: [facility] 01-22-2024 10:45-0500 Systolic blood pressure 128 mm[Hg] Edenilson Nicholson DO Work Phone: [facility] 01-09-2024 10:11-0500 Body mass index (BMI) [Ratio] 25.48 kg/m2 Angeline Cory ENGINE HEAD REPAIRER.IS ARCHITECT Work Phone: [facility] 01-09-2024 [id number] Body temperature 97 [degF] Angeline Cory ENGINE HEAD REPAIRER.IS ARCHITECT Work Phone: [facility] 01-09-2024 [id number] Body weight 55.3 kg Angeline Cory ENGINE HEAD REPAIRER.IS ARCHITECT Work Phone: [facility] 01-09-2024 10:11-0500 Diastolic blood pressure 58 mm[Hg] Angeline Cory ENGINE HEAD REPAIRER.IS ARCHITECT Work Phone: [facility] 01-09-2024 10:11-0500 Heart rate 55 /min Angeline Cory ENGINE HEAD REPAIRER.IS ARCHITECT Work Phone: [facility] 01-09-2024 10:11-0500 Respiratory rate 16 /min Angeline Cory ENGINE HEAD REPAIRER.IS ARCHITECT Work Phone: [facility] 01-09-2024 10:11-0500 SaO2% (BldA) [Mass fraction] 98 % Angeline Cory ENGINE HEAD REPAIRER.IS ARCHITECT Work Phone: [facility] 01-09-2024 10:11-0500 Systolic blood pressure 102 mm[Hg] Angeline Kleinman ENGINE HEAD REPAIRER.IS ARCHITECT Work Phone: [facility] 01-03-2024 11:58-0400 Body mass index (BMI) [Ratio] 26.08 kg/m2 Kathryn Pearson ENGINE HEAD REPAIRER.IS ARCHITECT Work Phone: [facility] 01-03-2024 11:58-0400 Body temperature 97.11 [degF] Kathryn Pearson ENGINE HEAD REPAIRER.IS ARCHITECT Work Phone: [facility] 01-03-2024 11:58-0400 Body weight 56.6 kg Kathryn Pearson ENGINE HEAD REPAIRER.IS ARCHITECT Work Phone: [facility] 01-03-2024 11:58-0400 Diastolic blood pressure 73 mm[Hg] Kathryn Pearson ENGINE HEAD REPAIRER.IS ARCHITECT Work Phone: [facility] 01-03-2024 11:58-0400 Heart rate 50 /min Kathryn Pearson ENGINE HEAD REPAIRER.IS ARCHITECT Work Phone: [facility] 01-03-2024 11:58-0400 Respiratory rate 18 /min Kathrynmaría Pearson ENGINE HEAD REPAIRER.IS ARCHITECT Work Phone: [facility] 01-03-2024 11:58-0400 SaO2% (BldA) [Mass fraction] 99 % Kathryn Pearson ENGINE HEAD REPAIRER.IS ARCHITECT Work Phone: [facility] 01-03-2024 11:58-0400 Systolic blood pressure 151 mm[Hg] Kathryn Pearson ENGINE HEAD REPAIRER.IS ARCHITECT Work Phone: [facility] 12-24-2023 17:17-0400 Body mass index (BMI) [Ratio] 25.94 kg/m2 Abigail Balderas ENGINE HEAD REPAIRER.IS ARCHITECT Work Phone: [facility] 12-24-2023 17:17-0400 Body temperature 98.49 [degF] Abigail Balderas ENGINE HEAD REPAIRER.IS ARCHITECT Work Phone: [facility] 12-24-2023 17:17-0400 Body weight 56.3 kg Abigail Praisler-Wood ENGINE HEAD REPAIRER.IS ARCHITECT Work Phone: [facility] 12-24-2023 17:17-0400 Diastolic blood pressure 80 mm[Hg] Abigail Praisler-Wood ENGINE HEAD REPAIRER.IS ARCHITECT Work Phone: [facility] 12-24-2023 17:17-0400 Heart rate 60 /min Abigail Praisler-Wood ENGINE HEAD REPAIRER.IS ARCHITECT Work Phone: [facility] 12-24-2023 17:17-0400 Respiratory rate 16 /min Abigail Praisler-Wood ENGINE HEAD REPAIRER.IS ARCHITECT Work Phone: [facility] 12-24-2023 17:17-0400 SaO2% (BldA) [Mass fraction] 96 % Abigail Praisler-Wood ENGINE HEAD REPAIRER.IS ARCHITECT Work Phone: [facility] 12-24-2023 17:17-0400 Systolic blood pressure 120 mm[Hg] Abigail Praisler-Wood ENGINE HEAD REPAIRER.IS ARCHITECT Work Phone: [facility] 12-05-2023 10:47-0400 Body mass index (BMI) [Ratio] 24.97 kg/m2 Kinga Suppan ENGINE HEAD REPAIRER.IS ARCHITECT Work Phone: [facility] 12-05-2023 10:47-0400 Body weight 54.2 kg Kinga Suppan ENGINE HEAD REPAIRER.IS ARCHITECT Work Phone: [facility] 12-05-2023 10:47-0400 Diastolic blood pressure 62 mm[Hg] Kinga Suppan ENGINE HEAD REPAIRER.IS ARCHITECT Work Phone: [facility] 12-05-2023 10:47-0400 Heart rate 62 /min Kinga Suppan ENGINE HEAD REPAIRER.IS ARCHITECT Work Phone: [facility] 12-05-2023 10:47-0400 Respiratory rate 14 /min Kinga Suppan ENGINE HEAD REPAIRER.IS ARCHITECT Work Phone: [facility] 12-05-2023 10:47-0400 SaO2% (BldA) [Mass fraction] 98 % Kinga Suppan ENGINE HEAD REPAIRER.IS ARCHITECT Work Phone: [facility] 12-05-2023 10:47-0400 Systolic blood pressure 120 mm[Hg] Kinga Suppan ENGINE HEAD REPAIRER.IS ARCHITECT Work Phone: [facility] 11-25-2023 12:41-0400 Body mass index (BMI) [Ratio] 24.87 kg/m2 Kinga Suppan ENGINE HEAD REPAIRER.IS ARCHITECT Work Phone: [facility] 11-25-2023 12:41-0400 Body temperature 97.9 [degF] Kinga Suppan ENGINE HEAD REPAIRER.IS ARCHITECT Work Phone: [facility] 11-25-2023 12:41-0400 Body weight 53.98 kg Kinga Suppan ENGINE HEAD REPAIRER.IS ARCHITECT Work Phone: [facility] 11-25-2023 12:41-0400 Diastolic blood pressure 64 mm[Hg] Kinga Suppan ENGINE HEAD REPAIRER.IS ARCHITECT Work Phone: [facility] 11-25-2023 12:41-0400 Heart rate 62 /min Kinga Suppan ENGINE HEAD REPAIRER.IS ARCHITECT Work Phone: [facility] 11-25-2023 12:41-0400 SaO2% (BldA) [Mass fraction] 97 % Kinga Suppan ENGINE HEAD REPAIRER.IS ARCHITECT Work Phone: [facility] 11-25-2023 12:41-0400 Systolic blood pressure 120 mm[Hg] Kinga Suppan ENGINE HEAD REPAIRER.IS ARCHITECT Work Phone: [facility] 11-13-2023 12:19-0400 Body mass index (BMI) [Ratio] 23.96 kg/m2 Anamaria Paul MD Work Phone: [facility] 11-13-2023 12:19-0400 Body weight 52 kg Anamaria Paul MD Work Phone: [facility] 11-13-2023 12:19-0400 Diastolic blood pressure 62 mm[Hg] Anamaria Paul MD Work Phone: [facility] 11-13-2023 12:19-0400 Heart rate 54 /min Anamaria Paul MD Work Phone: [facility] 11-13-2023 12:19-0400 Systolic blood pressure 133 mm[Hg] Anamaria Paul MD Work Phone: [facility] 10-28-2023 11:05-0400 Body mass index (BMI) [Ratio] 24.33 kg/m2 Krislyn Aberegg PA Work Phone: [facility] 10-28-2023 11:05-0400 Body temperature 98.29 [degF] Krislyn Aberegg PA Work Phone: [facility] 10-28-2023 11:05-0400 Body weight 52.8 kg Krislyn Aberegg PA Work Phone: [facility] 10-28-2023 11:05-0400 Diastolic blood pressure 60 mm[Hg] Krislyn Aberegg PA Work Phone: [facility] 10-28-2023 11:05-0400 Heart rate 60 /min Krislyn Aberegg PA Work Phone: [facility] 10-28-2023 11:05-0400 Respiratory rate 21 /min Krislyn Aberegg PA Work Phone: [facility] 10-28-2023 11:05-0400 SaO2% (BldA) [Mass fraction] 97 % Krislyn Aberegg PA Work Phone: [facility] 10-28-2023 11:05-0400 Systolic blood pressure 120 mm[Hg] Krislyn Aberegg PA Work Phone: [facility] 10-22-2023 11:42-0400 Diastolic blood pressure 76 mm[Hg] Edenilson Nicholson DO Work Phone: [facility] 10-22-2023 11:42-0400 Systolic blood pressure 130 mm[Hg] Edenilson Nicholson DO Work Phone: [facility] 10-22-2023 11:39-0400 Body mass index (BMI) [Ratio] 25.08 kg/m2 Edenilson Nicholson DO Work Phone: [facility] 10-22-2023 11:39-0400 Body temperature 97 [degF] Edenilson Nicholson DO Work Phone: [facility] 10-22-2023 11:39-0400 Body weight 54.43 kg Edenilson Nicholson DO Work Phone: [facility] 10-22-2023 11:39-0400 Heart rate 60 /min Edenilson Nicholson DO Work Phone: [facility] 10-22-2023 11:39-0400 Respiratory rate 20 /min Edenilson Nicholson DO Work Phone: [facility] 09-18-2023 18:15-0400 Body mass index (BMI) [Ratio] 24.87 kg/m2 Edenilson Nicholson DO Work Phone: [facility] 09-18-2023 18:15-0400 Body temperature 98.01 [degF] Edenilson Nicholson DO Work Phone: [facility] 09-18-2023 18:15-0400 Body weight 53.98 kg Edenilson Nicholson DO Work Phone: [facility] 09-18-2023 18:15-0400 Diastolic blood pressure 60 mm[Hg] Edenilson Nicholson DO Work Phone: [facility] 09-18-2023 18:15-0400 Heart rate 60 /min Edenilson Nicholson DO Work Phone: [facility] 09-18-2023 18:15-0400 Respiratory rate 16 /min Edenilson Nicholson DO Work Phone: [facility] 09-18-2023 18:15-0400 Systolic blood pressure 120 mm[Hg] Edenilson Nicholson DO Work Phone: [facility] 07-16-2023 14:32-0400 Body mass index (BMI) [Ratio] 25.46 kg/m2 Angeline Cory ENGINE HEAD REPAIRER.IS ARCHITECT Work Phone: [facility] 07-16-2023 14:32-0400 Body weight 55.25 kg Angeline Cory ENGINE HEAD REPAIRER.IS ARCHITECT Work Phone: [facility] 07-16-2023 14:32-0400 Diastolic blood pressure 76 mm[Hg] Angeline Cory ENGINE HEAD REPAIRER.IS ARCHITECT Work Phone: [facility] 07-16-2023 14:32-0400 Heart rate 49 /min Angeline Cory ENGINE HEAD REPAIRER.IS ARCHITECT Work Phone: [facility] 07-16-2023 14:32-0400 Respiratory rate 16 /min Angeline Cory ENGINE HEAD REPAIRER.IS ARCHITECT Work Phone: [facility] 07-16-2023 14:32-0400 SaO2% (BldA) [Mass fraction] 98 % Angeline Cory ENGINE HEAD REPAIRER.IS ARCHITECT Work Phone: [facility] 07-16-2023 14:32-0400 Systolic blood pressure 122 mm[Hg] Angeline Cory ENGINE HEAD REPAIRER.IS ARCHITECT Work Phone: [facility] 07-04-2023 13:53-0400 Body mass index (BMI) [Ratio] 24.87 kg/m2 Chapis Podlogar ENGINE HEAD REPAIRER.IS ARCHITECT Work Phone: [facility] 07-04-2023 13:53-0400 Body temperature 98.49 [degF] Chapis Podlogar ENGINE HEAD REPAIRER.IS ARCHITECT Work Phone: [facility] 07-04-2023 13:53-0400 Body weight 53.98 kg Chapis Podlogar ENGINE HEAD REPAIRER.IS ARCHITECT Work Phone: [facility] 07-04-2023 13:53-0400 Diastolic blood pressure 64 mm[Hg] Chapis Podlogar ENGINE HEAD REPAIRER.IS ARCHITECT Work Phone: [facility] 07-04-2023 13:53-0400 Heart rate 54 /min Chapis Podlogar ENGINE HEAD REPAIRER.IS ARCHITECT Work Phone: [facility] 07-04-2023 13:53-0400 Respiratory rate 16 /min Chapis Podlogar ENGINE HEAD REPAIRER.IS ARCHITECT Work Phone: [facility] 07-04-2023 13:53-0400 SaO2% (BldA) [Mass fraction] 98 % Chapis Podlogar ENGINE HEAD REPAIRER.IS ARCHITECT Work Phone: [facility] 07-04-2023 13:53-0400 Systolic blood pressure 118 mm[Hg] Chapis Podlogar ENGINE HEAD REPAIRER.IS ARCHITECT Work Phone: [facility] 06-27-2023 14:26-0400 Body mass index (BMI) [Ratio] 24.79 kg/m2 Angeline Kleinman ENGINE HEAD REPAIRER.IS ARCHITECT Work Phone: [facility] 06-27-2023 14:26-0400 Body temperature 98.2 [degF] Angeline Kleinman ENGINE HEAD REPAIRER.IS ARCHITECT Work Phone: [facility] 06-27-2023 14:26-0400 Body weight 53.8 kg Angeline Kleinman ENGINE HEAD REPAIRER.IS ARCHITECT Work Phone: [facility] 06-27-2023 14:26-0400 Diastolic blood pressure 64 mm[Hg] Angeline Kleinman ENGINE HEAD REPAIRER.IS ARCHITECT Work Phone: [facility] 06-27-2023 14:26-0400 Heart rate 56 /min Angeline Kleinman ENGINE HEAD REPAIRER.IS ARCHITECT Work Phone: [facility] 06-27-2023 14:26-0400 Respiratory rate 16 /min Angeline Kleinman ENGINE HEAD REPAIRER.IS ARCHITECT Work Phone: [facility] 06-27-2023 14:26-0400 SaO2% (BldA) [Mass fraction] 98 % Angeline Kleinman ENGINE HEAD REPAIRER.IS ARCHITECT Work Phone: [facility] 06-27-2023 14:26-0400 Systolic blood pressure 108 mm[Hg] Angeline Cory ENGINE HEAD REPAIRER.IS ARCHITECT Work Phone: [facility] 06-12-2023 11:06-0400 Body weight 52.62 kg Angeline Cory ENGINE HEAD REPAIRER.IS ARCHITECT Work Phone: [facility] 06-12-2023 11:06-0400 Diastolic blood pressure 72 mm[Hg] Angeline Cory ENGINE HEAD REPAIRER.IS ARCHITECT Work Phone: [facility] 06-12-2023 11:06-0400 Heart rate 52 /min Angeline Cory ENGINE HEAD REPAIRER.IS ARCHITECT Work Phone: [facility] 06-12-2023 11:06-0400 Respiratory rate 16 /min Angeline Ocry ENGINE HEAD REPAIRER.IS ARCHITECT Work Phone: [facility] 06-12-2023 11:06-0400 SaO2% (BldA) [Mass fraction] 99 % Angeline Cory ENGINE HEAD REPAIRER.IS ARCHITECT Work Phone: [facility] 06-12-2023 11:06-0400 Systolic blood pressure 124 mm[Hg] Angeline Cory ENGINE HEAD REPAIRER.IS ARCHITECT Work Phone: [facility] 05-08-2023 08:47-0500 Body weight 53.98 kg Angeline Cory ENGINE HEAD REPAIRER.IS ARCHITECT Work Phone: [facility] 05-08-2023 08:47-0500 Diastolic blood pressure 72 mm[Hg] Angeline Cory ENGINE HEAD REPAIRER.IS ARCHITECT Work Phone: [facility] 05-08-2023 08:47-0500 Heart rate 58 /min Angeline Cory ENGINE HEAD REPAIRER.IS ARCHITECT Work Phone: [facility] 05-08-2023 08:47-0500 Respiratory rate 16 /min Angeline Cory ENGINE HEAD REPAIRER.IS ARCHITECT Work Phone: [facility] 05-08-2023 08:47-0500 SaO2% (BldA) [Mass fraction] 95 % Angeline Cory ENGINE HEAD REPAIRER.IS ARCHITECT Work Phone: [facility] 05-08-2023 08:47-0500 Systolic blood pressure 132 mm[Hg] Angeline Cory ENGINE HEAD REPAIRER.IS ARCHITECT Work Phone: [facility] 04-17-2023 17:29-0500 Body temperature 97.3 [degF] Edenilson Nicholson DO Work Phone: [facility] 04-17-2023 17:29-0500 Body weight 54.43 kg Edenilson Nicholson DO Work Phone: [facility] 04-17-2023 17:29-0500 Diastolic blood pressure 80 mm[Hg] Edenilson Nicholson DO Work Phone: [facility] 04-17-2023 17:29-0500 Heart rate 60 /min Edenilson Nicholson DO Work Phone: [facility] 04-17-2023 17:29-0500 Respiratory rate 16 /min Edenilson Nicholson DO Work Phone: [facility] 04-17-2023 17:29-0500 Systolic blood pressure 120 mm[Hg] Edenilson Nicholson DO Work Phone: [facility] 01-28-2023 13:10-0500 Body weight 54.25 kg Kandi Park ENGINE HEAD REPAIRER.IS ARCHITECT Work Phone: [facility] 01-28-2023 13:10-0500 Diastolic blood pressure 64 mm[Hg] Kandi Park ENGINE HEAD REPAIRER.IS ARCHITECT Work Phone: [facility] 01-28-2023 13:10-0500 Heart rate 60 /min Kandi Park ENGINE HEAD REPAIRER.IS ARCHITECT Work Phone: [facility] 01-28-2023 13:10-0500 Respiratory rate 12 /min Kandi Park ENGINE HEAD REPAIRER.IS ARCHITECT Work Phone: [facility] 01-28-2023 13:10-0500 Systolic blood pressure 120 mm[Hg] Kandi Park ENGINE HEAD REPAIRER.IS ARCHITECT Work Phone: [facility] 01-21-2023 08:54-0500 Body weight 54.43 kg Kandi Park ENGINE HEAD REPAIRER.IS ARCHITECT Work Phone: [facility] 01-21-2023 08:54-0500 Diastolic blood pressure 62 mm[Hg] Kandi Park ENGINE HEAD REPAIRER.IS ARCHITECT Work Phone: [facility] 01-21-2023 08:54-0500 Heart rate 55 /min Kandi Park ENGINE HEAD REPAIRER.IS ARCHITECT Work Phone: [facility] 01-21-2023 08:54-0500 Respiratory rate 14 /min Kandi Park ENGINE HEAD REPAIRER.IS ARCHITECT Work Phone: [facility] 01-21-2023 08:54-0500 SaO2% (BldA) [Mass fraction] 98 % Kandi Park ENGINE HEAD REPAIRER.IS ARCHITECT Work Phone: [facility] 01-21-2023 08:54-0500 Systolic blood pressure 120 mm[Hg] Kandi Park ENGINE HEAD REPAIRER.IS ARCHITECT Work Phone: [facility] 01-19-2023 12:05-0500 Blood Pressure Cuff Size DR MIRA VILLATORO DO [facility] 01-19-2023 12:05-[address] MIRA VILLATORO DO [facility] 01-19-2023 12:05-[address] MIRA VILLATORO DO [facility] 01-19-2023 12:05-0500 Body temperature 97.52 [degF] DR MIRA VILLATORO DO [facility] 01-19-2023 12:05-0500 Diastolic Blood Pressure Non-Invasive 76 mm[Hg] DR MIRA VILLATORO DO [facility] 01-19-2023 12:05-0500 Heart rate 57 /min DR MIRA VILLATORO DO [facility] 01-19-2023 12:05-0500 Respiratory rate 16 /min DR MIRA VILLATORO DO [facility] 01-19-2023 12:05-0500 Systolic Blood Pressure Non-Invasive 189 mm[Hg] DR MIRA VILLATORO DO [facility] 11-19-2022 13:06-0400 Body height 147.3 cm Mellisa Saeedk DO Work Phone: [facility] 11-19-2022 13:06-0400 Body weight 52.16 kg Mellisatrudy WaltonGriselda DO Work Phone: [facility] 11-14-2022 10:29-0400 Body temperature 97.11 [degF] Edenilson Nicholson DO Work Phone: [facility] 11-14-2022 10:29-0400 Body weight 52.62 kg Edenilson Nicholson DO Work Phone: [facility] 11-14-2022 10:29-0400 Diastolic blood pressure 64 mm[Hg] Edenilson Nicholson DO Work Phone: [facility] 11-14-2022 10:29-0400 Heart rate 60 /min Edenilson Nicholson DO Work Phone: [facility] 11-14-2022 10:29-0400 Respiratory rate 16 /min Edenilson Nicholson DO Work Phone: [facility] 11-14-2022 10:29-0400 Systolic blood pressure 120 mm[Hg] Edenilson Nicholson DO Work Phone: [facility] 11-13-2022 16:01-0400 Body temperature 98.01 [degF] Johnie Aguirre APRN.IS ARCHITECT Work Phone: [facility] 11-13-2022 16:01-0400 Body weight 54.88 kg Johnie Aguirre APRN.IS ARCHITECT Work Phone: [facility] 11-13-2022 16:01-0400 Diastolic blood pressure 64 mm[Hg] Johnie Aguirre APRN.IS ARCHITECT Work Phone: [facility] 11-13-2022 16:01-0400 Heart rate 68 /min Johnie Aguirre ENGINE HEAD REPAIRER.IS ARCHITECT Work Phone: [facility] 11-13-2022 16:01-0400 Respiratory rate 16 /min Johnie Aguirre ENGINE HEAD REPAIRER.IS ARCHITECT Work Phone: [facility] 11-13-2022 16:01-0400 SaO2% (BldA) [Mass fraction] 100 % Johnie Aguirre ENGINE HEAD REPAIRER.IS ARCHITECT Work Phone: [facility] 11-13-2022 16:01-0400 Systolic blood pressure 92 mm[Hg] [facility] ENGINE HEAD REPAIRER.IS ARCHITECT Work Phone: [facility] 10-12-2022 10:06-0400 Body weight 52.62 kg NA Rodney PA-C Work Phone: [facility] 10-12-2022 10:06-0400 Diastolic blood pressure 62 mm[Hg] NA Rodney PA-C Work Phone: [facility] 10-12-2022 10:06-0400 Heart rate 73 /min NA Rodney PA-C Work Phone: [facility] 10-12-2022 10:06-0400 Respiratory rate 14 /min NA Rodney PA-C Work Phone: [facility] 10-12-2022 10:06-0400 SaO2% (BldA) [Mass fraction] 97 % NA Rodney PA-C Work Phone: [facility] 10-12-2022 10:06-0400 Systolic blood pressure 110 mm[Hg] NA Rodney PA-C Work Phone: [facility] 09-20-2022 08:49-0400 Body temperature 97.81 [degF] NA Rodney PA-C Work Phone: [facility] 09-20-2022 08:49-0400 Body weight 51.26 kg NA Rodney PA-C Work Phone: [facility] 09-20-2022 08:49-0400 Diastolic blood pressure 66 mm[Hg] NA Rodney PA-C Work Phone: [facility] 09-20-2022 08:49-0400 Heart rate 58 /min NA Rodney PA-C Work Phone: [facility] 09-20-2022 08:49-0400 SaO2% (BldA) [Mass fraction] 96 % NA Rodney PA-C Work Phone: [facility] 09-20-2022 08:49-0400 Systolic blood pressure 94 mm[Hg] NA Rodney PA-C Work Phone: [facility] 08-01-2022 10:36-0400 Body temperature 97 [degF] Edenilson Nicholson DO Work Phone: [facility] 08-01-2022 10:36-0400 Body weight 51.71 kg Edenilson Nicholson DO Work Phone: [facility] 08-01-2022 10:36-0400 Diastolic blood pressure 60 mm[Hg] Edenilson Nicholson DO Work Phone: [facility] 08-01-2022 10:36-0400 Heart rate 60 /min Edenilson Nicholson DO Work Phone: [facility] 08-01-2022 10:36-0400 Respiratory rate 16 /min Edenilson Nicholson DO Work Phone: [facility] 08-01-2022 10:36-0400 Systolic blood pressure 90 mm[Hg] Edenislon Nicholson DO Work Phone: [facility] 07-14-2022 14:03-0400 Body temperature 97.9 [degF] Efra Stinson MD Work Phone: [facility] 07-14-2022 14:03-0400 Body weight 53.43 kg Efra Stinson MD Work Phone: [facility] 07-14-2022 14:03-0400 Diastolic blood pressure 70 mm[Hg] Efra Stinson MD Work Phone: [facility] 07-14-2022 14:03-0400 Heart rate 63 /min Efra Stinson MD Work Phone: [facility] 07-14-2022 14:03-0400 Respiratory rate 20 /min Efra Stinson MD Work Phone: [facility] 07-14-2022 14:03-0400 SaO2% (BldA) [Mass fraction] 98 % Efra Stinson MD Work Phone: [facility] 07-14-2022 14:03-0400 Systolic blood pressure 140 mm[Hg] Efra Stinson MD Work Phone: [facility] 06-27-2022 08:48-0400 Body weight 53.16 kg Angeline Cory ENGINE HEAD REPAIRER.IS ARCHITECT Work Phone: [facility] 06-27-2022 08:48-0400 Diastolic blood pressure 78 mm[Hg] Angeline Cory ENGINE HEAD REPAIRER.IS ARCHITECT Work Phone: [facility] 06-27-2022 08:48-0400 Heart rate 56 /min Angeline Cory ENGINE HEAD REPAIRER.IS ARCHITECT Work Phone: [facility] 06-27-2022 08:48-0400 Respiratory rate 16 /min Angeline Cory ENGINE HEAD REPAIRER.IS ARCHITECT Work Phone: [facility] 06-27-2022 08:48-0400 SaO2% (BldA) [Mass fraction] 100 % Angeline Cory ENGINE HEAD REPAIRER.IS ARCHITECT Work Phone: [facility] 06-27-2022 08:48-0400 Systolic blood pressure 130 mm[Hg] Angeline Cory ENGINE HEAD REPAIRER.IS ARCHITECT Work Phone: [facility] 05-10-2022 10:56-0500 Diastolic blood pressure 53 mm[Hg] Owen Rivas MD Work Phone: [facility] 05-10-2022 10:56-0500 Heart rate 57 /min Owen Rivas MD Work Phone: [facility] 05-10-2022 10:56-0500 Respiratory rate 16 /min Owen Rivas MD Work Phone: [facility] 05-10-2022 10:56-0500 SaO2% (BldA) [Mass fraction] 97 % Owen Rivas MD Work Phone: [facility] 05-10-2022 10:56-0500 Systolic blood pressure 113 mm[Hg] Owen Rivas MD Work Phone: [facility] 05-10-2022 09:30-0500 Body temperature 98.29 [degF] Owen Rivas MD Work Phone: [facility] 05-08-2022 10:29-0500 Body height 149.9 cm Nel Zayas MD Work Phone: [facility] 05-08-2022 10:29-0500 Body weight 50.8 kg Nel Zayas MD Work Phone: [facility] 05-08-2022 10:29-0500 Diastolic blood pressure 55 mm[Hg] Nel Zayas MD Work Phone: [facility] 05-08-2022 10:29-0500 Heart rate 53 /min Nel Zayas MD Work Phone: [facility] 05-08-2022 10:29-0500 Systolic blood pressure 148 mm[Hg] Nel Zayas MD Work Phone: [facility] 04-24-2022 13:37-0500 Body temperature 96.1 [degF] Edenilson Nicholson DO Work Phone: [facility] 04-24-2022 13:37-0500 Body weight 51.71 kg Edenilson Nicholson DO Work Phone: [facility] 04-24-2022 13:37-0500 Diastolic blood pressure 64 mm[Hg] Edenilson Nicholson DO Work Phone: [facility] 04-24-2022 13:37-0500 Heart rate 64 /min Edenilson Nicholson DO Work Phone: [facility] 04-24-2022 13:37-0500 Respiratory rate 16 /min Edenilson Nicholson DO Work Phone: [facility] 04-24-2022 13:37-0500 Systolic blood pressure 128 mm[Hg] Edenilson Nicholson DO Work Phone: [facility] 04-20-2022 08:49-0500 Body weight 51.35 kg Angeline Cory ENGINE HEAD REPAIRER.IS ARCHITECT Work Phone: [facility] 04-20-2022 08:49-0500 Diastolic blood pressure 64 mm[Hg] Angeline Cory ENGINE HEAD REPAIRER.IS ARCHITECT Work Phone: [facility] 04-20-2022 08:49-0500 Heart rate 54 /min Angeline Cory ENGINE HEAD REPAIRER.IS ARCHITECT Work Phone: [facility] 04-20-2022 08:49-0500 Respiratory rate 16 /min Angeline Cory ENGINE HEAD REPAIRER.IS ARCHITECT Work Phone: [facility] 04-20-2022 08:49-0500 SaO2% (BldA) [Mass fraction] 99 % Angeline Cory ENGINE HEAD REPAIRER.IS ARCHITECT Work Phone: [facility] 04-20-2022 08:49-0500 Systolic blood pressure 122 mm[Hg] Angeline Cory ENGINE HEAD REPAIRER.IS ARCHITECT Work Phone: [facility] 04-16-2022 09:48-0500 Body height 147.3 cm Mellisa Griselda DO Work Phone: [facility] 04-16-2022 09:48-0500 Body weight 52.16 kg Mellisa Griselda DO Work Phone: [facility] 04-07-2022 12:59-0500 Body temperature 97.7 [degF] Efra Stinson MD Work Phone: [facility] 04-07-2022 12:59-0500 Body weight 53.71 kg Efra Stinson MD Work Phone: [facility] 04-07-2022 12:59-0500 Diastolic blood pressure 82 mm[Hg] Efra Stinson MD Work Phone: [facility] 04-07-2022 12:59-0500 Heart rate 66 /min Efra Stinson MD Work Phone: [facility] 04-07-2022 12:59-0500 Respiratory rate 18 /min Efra Stinson MD Work Phone: [facility] 04-07-2022 12:59-0500 SaO2% (BldA) [Mass fraction] 99 % Efra Stinson MD Work Phone: [facility] 04-07-2022 12:59-0500 Systolic blood pressure 124 mm[Hg] Efra Stinson MD Work Phone: [facility] 03-05-2022 13:21-0500 Body temperature 97.5 [degF] Laisha Athy PA-C Work Phone: [facility] 03-05-2022 13:21-0500 Body weight 53.07 kg Laisha Athy PA-C Work Phone: [facility] 03-05-2022 13:21-0500 Diastolic blood pressure 60 mm[Hg] Laisha Athy PA-C Work Phone: [facility] 03-05-2022 13:21-0500 Heart rate 66 /min Laisha Athy PA-C Work Phone: [facility] 03-05-2022 13:21-0500 Respiratory rate 16 /min Laisha Athy PA-C Work Phone: [facility] 03-05-2022 13:21-0500 SaO2% (BldA) [Mass fraction] 100 % Laisha Athy PA-C Work Phone: [facility] 03-05-2022 13:21-0500 Systolic blood pressure 122 mm[Hg] Laisha Athy PA-C Work Phone: [facility] 02-16-2022 08:03-0500 Body height 147.3 cm Lynne Silverman APRN.CNP Work Phone: [facility] 02-16-2022 08:03-0500 Body weight 53.07 kg Lynne Silverman ENGINE HEAD REPAIRER.IS ARCHITECT Work Phone: [facility] 02-14-2022 09:18-0500 Body temperature 97 [degF] Edenilson Nicholson DO Work Phone: [facility] 02-14-2022 09:18-0500 Body weight 53.07 kg Edenilson Nicholson DO Work Phone: [facility] 02-14-2022 09:18-0500 Diastolic blood pressure 60 mm[Hg] Edenilson Nicholson DO Work Phone: [facility] 02-14-2022 09:18-0500 Heart rate 64 /min Edenilson Nicholson DO Work Phone: [facility] 02-14-2022 09:18-0500 Respiratory rate 16 /min Edenilson Nicholson DO Work Phone: [facility] 02-14-2022 09:18-0500 Systolic blood pressure 120 mm[Hg] Edenilson Nicholson DO Work Phone: [facility] 02-10-2022 15:23-0500 Body temperature 98.29 [degF] Johnie Aguirre ENGINE HEAD REPAIRER.IS ARCHITECT Work Phone: [facility] 02-10-2022 15:23-0500 Body weight 54.8 kg Johnie Aguirre ENGINE HEAD REPAIRER.IS ARCHITECT Work Phone: [facility] 02-10-2022 15:23-0500 Diastolic blood pressure 68 mm[Hg] Johnie Aguirre ENGINE HEAD REPAIRER.IS ARCHITECT Work Phone: [facility] 02-10-2022 15:23-0500 Heart rate 58 /min Johnie Aguirre ENGINE HEAD REPAIRER.IS ARCHITECT Work Phone: [facility] 02-10-2022 15:23-0500 Respiratory rate 18 /min Johnie Aguirre ENGINE HEAD REPAIRER.IS ARCHITECT Work Phone: [facility] 02-10-2022 15:23-0500 SaO2% (BldA) [Mass fraction] 100 % Johnie Aguirre ENGINE HEAD REPAIRER.IS ARCHITECT Work Phone: [facility] 02-10-2022 15:23-0500 Systolic blood pressure 112 mm[Hg] Johnie Aguirre ENGINE HEAD REPAIRER.IS ARCHITECT Work Phone: [facility] 01-22-2022 13:50-0500 Body temperature 96.4 [degF] Edenilson Nicholson DO Work Phone: [facility] 01-22-2022 13:50-0500 Body weight 53.07 kg Edenilson Nicholson DO Work Phone: [facility] 01-22-2022 13:50-0500 Diastolic blood pressure 60 mm[Hg] Edenilson Nicholson DO Work Phone: [facility] 01-22-2022 13:50-0500 Heart rate 60 /min Edenilson Nicholson DO Work Phone: [facility] 01-22-2022 13:50-0500 Respiratory rate 16 /min Edenilson Nicholson DO Work Phone: [facility] 01-22-2022 13:50-0500 Systolic blood pressure 110 mm[Hg] Edenilson Nicholson DO Work Phone: [facility] 01-12-2022 14:07-0500 Body temperature 98.01 [degF] Bambi Alex APRN.IS ARCHITECT Work Phone: [facility] 01-12-2022 14:07-0500 Body weight 54.52 kg Bambi Alex APRN.IS ARCHITECT Work Phone: [facility] 01-12-2022 14:07-0500 Diastolic blood pressure 74 mm[Hg] Bambi Alex APRN.IS ARCHITECT Work Phone: [facility] 01-12-2022 14:07-0500 Heart rate 68 /min Bambi Alex APRN.IS ARCHITECT Work Phone: [facility] 01-12-2022 14:07-0500 Respiratory rate 16 /min Bambi Alex APRN.IS ARCHITECT Work Phone: [facility] 01-12-2022 14:07-0500 SaO2% (BldA) [Mass fraction] 97 % Bambi Alex APRN.IS ARCHITECT Work Phone: [facility] 01-12-2022 14:07-0500 Systolic blood pressure 132 mm[Hg] Bambi Alex APRN.IS ARCHITECT Work Phone: [facility] 12-06-2021 10:34-0400 Body height 147.3 cm Juan Lagos MD Work Phone: [facility] 12-06-2021 10:34-0400 Body temperature 97.5 [degF] Juan Lagos MD Work Phone: [facility] 12-06-2021 10:34-0400 Body weight 52.71 kg Juan Lagos MD Work Phone: [facility] 12-06-2021 10:34-0400 Diastolic blood pressure 69 mm[Hg] Juan Lagos MD Work Phone: [facility] 12-06-2021 10:34-0400 Heart rate 63 /min Juan Lagos MD Work Phone: [facility] 12-06-2021 10:34-0400 SaO2% (BldA) [Mass fraction] 100 % Juan Lagos MD Work Phone: [facility] 12-06-2021 10:34-0400 Systolic blood pressure 137 mm[Hg] Juan Lagos MD Work Phone: [facility] 12-05-2021 14:29-0400 Body temperature 96.6 [degF] Edenilson Nicholson DO Work Phone: [facility] 12-05-2021 14:29-0400 Body weight 53.07 kg Edenilson Nicholson DO Work Phone: [facility] 12-05-2021 14:29-0400 Diastolic blood pressure 60 mm[Hg] Edenilson Nicholson DO Work Phone: [facility] 12-05-2021 14:29-0400 Heart rate 56 /min Edenilson Nicholson DO Work Phone: [facility] 12-05-2021 14:29-0400 Respiratory rate 16 /min Edenilson Nicholson DO Work Phone: [facility] 12-05-2021 14:29-0400 Systolic blood pressure 116 mm[Hg] Edenilson Nicholson DO Work Phone: [facility] 10-27-2021 13:13-0400 Body weight 51.53 kg Angeline Cory ENGINE HEAD REPAIRER.IS ARCHITECT Work Phone: [facility] 10-27-2021 13:13-0400 Diastolic blood pressure 76 mm[Hg] Angeline Cory ENGINE HEAD REPAIRER.IS ARCHITECT Work Phone: [facility] 10-27-2021 13:13-0400 Heart rate 60 /min Angeline Cory ENGINE HEAD REPAIRER.IS ARCHITECT Work Phone: [facility] 10-27-2021 13:13-0400 Respiratory rate 16 /min Angeline Cory ENGINE HEAD REPAIRER.IS ARCHITECT Work Phone: [facility] 10-27-2021 13:13-0400 SaO2% (BldA) [Mass fraction] 97 % Angeline Cory ENGINE HEAD REPAIRER.IS ARCHITECT Work Phone: [facility] 10-27-2021 13:13-0400 Systolic blood pressure 116 mm[Hg] Angeline Cory ENGINE HEAD REPAIRER.IS ARCHITECT Work Phone: [facility] 09-12-2021 11:30-0400 Diastolic blood pressure 64 mm[Hg] Charissa Haagen ENGINE HEAD REPAIRER.IS ARCHITECT Work Phone: [facility] 09-12-2021 11:30-0400 Heart rate 51 /min Charissa Haagen ENGINE HEAD REPAIRER.IS ARCHITECT Work Phone: [facility] 09-12-2021 11:30-0400 Respiratory rate 18 /min Charissa Haagen ENGINE HEAD REPAIRER.IS ARCHITECT Work Phone: [facility] 09-12-2021 11:30-0400 SaO2% (BldA) [Mass fraction] 98 % Charissa Haagen ENGINE HEAD REPAIRER.IS ARCHITECT Work Phone: [facility] 09-12-2021 11:30-0400 Systolic blood pressure 128 mm[Hg] Charissa Haagen ENGINE HEAD REPAIRER.IS ARCHITECT Work Phone: [facility] 07-20-2021 12:10-0400 Body weight 51.71 kg Angeline Ray ENGINE HEAD REPAIRER.IS ARCHITECT Work Phone: [facility] 07-20-2021 12:10-0400 Diastolic blood pressure 68 mm[Hg] Angeline Cory ENGINE HEAD REPAIRER.IS ARCHITECT Work Phone: [facility] 07-20-2021 12:10-0400 Heart rate 59 /min Angeline Cory ENGINE HEAD REPAIRER.IS ARCHITECT Work Phone: [facility] 07-20-2021 12:10-0400 SaO2% (BldA) [Mass fraction] 97 % Angeline Cory ENGINE HEAD REPAIRER.IS ARCHITECT Work Phone: [facility] 07-20-2021 12:10-0400 Systolic blood pressure 108 mm[Hg] Angeline Cory ENGINE HEAD REPAIRER.IS ARCHITECT Work Phone: [facility] 06-27-2021 10:17-0400 Body weight 51.71 kg Edenilson Nicholson DO Work Phone: [facility] 06-27-2021 10:17-0400 Diastolic blood pressure 70 mm[Hg] Edenilson Nicholson DO Work Phone: [facility] 06-27-2021 10:17-0400 Heart rate 51 /min Edenilson Nicholson DO Work Phone: [facility] 06-27-2021 10:17-0400 Respiratory rate 14 /min Edenilson Nicholson DO Work Phone: [facility] 06-27-2021 10:17-0400 SaO2% (BldA) [Mass fraction] 99 % Edenilson Nicholson DO Work Phone: [facility] 06-27-2021 10:17-0400 Systolic blood pressure 116 mm[Hg] Edenilson Nicholson DO Work Phone: [facility] 06-09-2021 14:03-0400 Body weight 52.16 kg Charissa Haagen ENGINE HEAD REPAIRER.IS ARCHITECT Work Phone: [facility] 06-09-2021 14:03-0400 Diastolic blood pressure 57 mm[Hg] Charissa Haagen ENGINE HEAD REPAIRER.IS ARCHITECT Work Phone: [facility] 06-09-2021 14:03-0400 Heart rate 50 /min Charissa Haagen ENGINE HEAD REPAIRER.IS ARCHITECT Work Phone: [facility] 06-09-2021 14:03-0400 Respiratory rate 12 /min Charissa Haagen ENGINE HEAD REPAIRER.IS ARCHITECT Work Phone: [facility] 06-09-2021 14:03-0400 SaO2% (BldA) [Mass fraction] 94 % Charissa Haagen ENGINE HEAD REPAIRER.IS ARCHITECT Work Phone: [facility] 06-09-2021 14:03-0400 Systolic blood pressure 136 mm[Hg] Charissa Haagen ENGINE HEAD REPAIRER.IS ARCHITECT Work Phone: [facility] 06-07-2021 10:01-0400 Body temperature 97.11 [degF] Efra Stinson MD Work Phone: [facility] 06-07-2021 10:01-0400 Body weight 52.44 kg Efra Stinson MD Work Phone: [facility] 06-07-2021 10:01-0400 Diastolic blood pressure 68 mm[Hg] Efra Stinson MD Work Phone: [facility] 06-07-2021 10:01-0400 Heart rate 63 /min Efra Stinson MD Work Phone: [facility] 06-07-2021 10:01-0400 Respiratory rate 18 /min Efra Stinson MD Work Phone: [facility] 06-07-2021 10:01-0400 SaO2% (BldA) [Mass fraction] 98 % Efra Stinson MD Work Phone: [facility] 06-07-2021 10:01-0400 Systolic blood pressure 114 mm[Hg] Efra Stinson MD Work Phone: [facility] Encounters Encounter Date Encounter Type Care Provider Facility Start: 12-17-2024 End: 12-17-2024 ambulatory [facility] Facility:[facility] Start: 12-07-2024 End: 12-07-2024 ambulatory [facility] Facility:[facility] Start: 12-01-2024 End: 12-01-2024 ambulatory [facility] Facility:[facility] Start: 12-01-2024 End: 12-01-20[facility] Start: 11-30-2024 End: 11-30-2024 ambulatory EDENILSON NICHOLSON Facility:[facility] Start: 11-23-2024 End: 11-23-2024 ambulatory [facility] Facility:[facility] Start: 11-14-2024 End: 11-14-2024 Subsequent hospital visit by physician Nalini [facility] Work Phone: Radiology Comment on above: Acute cough [R05.1] Start: 11-14-2024 End: 11-14-2024 Patient encounter procedure Abigail Balderas APRN.CNP Work Phone: [facility] Comment on above: Acute cough (Primary Dx); Acute bronchitis, unspecified organism; Contusion of left upper extremity, initial encounter Start: 11-14-2024 End: 11-14-2024 ambulatory EDENILSON NICHOLSON Facility:[facility] Start: 11-11-2024 End: 11-11-2024 ambulatory ANGELINE RAY Facility:[facility] Start: 11-11-2024 End: 11-11-2024 Office outpatient visit 25 minutes Angeline Ray APRN.IS ARCHITECT Work Phone: [facility] [place] Comment on above: Arm bruise, left, se quela (Primary Dx); Chronic left-sided low back pain without sciatica; Degeneration of intervertebral disc of lumbar region, unspecified whether pain present; DDD (degenerative disc disease), thoracic; Muscle spasm; Dementia without behavioral disturbance (HCC); Muscle spasm of back; Spinal stenosis of lumbar region, unspecified whether neurogenic claudication present Start: 11-06-2024 End: 11-06-2024 Refill Edenilson Nicholson DO Work Phone: [facility] [place] Comment on above: Refill Request Start: 11-04-2024 End: 11-04-2024 Emergency department patient visit Dr. Edenilson Nicholson DO Work Phone: -Emergency Department Work Phone: Start: 11-04-2024 End: 11-04-2024 Patient encounter procedure Bambi Alex APRN.IS ARCHITECT Work Phone: [facility] [place] Comment on above: Pain (Primary Dx) Start: 11-04-2024 End: 11-05-2024 ambulatory Edenilson Nicholson DO Work Phone: [facility] [place] Comment on above: left side weakness Start: 11-02-2024 End: 11-02-2024 ambulatory Kathryn Zhou RN NURSE CABLE SPLICER APPRENTICE Comment on above: Information Start: 10-22-2024 End: 10-22-2024 ambulatory [facility] Comment on above: Radiculopathy, cervi bethany region (Primary Dx) Start: 10-08-2024 End: 10-08-2024 ambulatory OLMAN PAIZ Facility:[facility] Start: 09-22-2024 End: 09-22-2024 Patient encounter procedure Samantha Jordan PA-C Work Phone: Neurology Comment on above: Paresthesia (Primary Dx); TIA (transient ischemic attack); Radiculopathy, cervical region Start: 09-22-2024 End: 09-22-2024 ambulatory TO DURAN Facility:[facility] Start: 09-14-2024 End: 09-14-[address] Dina Olea MD -[facility] [place] Work Phone: Start: 09-14-2024 End: 09-14-2024 Refill Edenilson Nicholson DO Work Phone: [facility] [place] Comment on above: Refill Request Start: 09-14-2024 End: 09-14-2024 ambulatory Dinacarlos manuel Olea Facility:[facility] Start: 08-24-[address] 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 Jerome cook DO -[facility] Work Phone: Start: 08-14-2024 ambulatory Pablo Mak Facility:[facility] Start: 08-14-2024 Non-patient / Non-visit Dr. Pablo Mak MD -[facility] Start: 08-13-2024 Non-patient / Non-visit Darren DAVIS -[facility] Work Phone: Start: 08-13-2024 End: 08-14-2024 Evaluation and management of inpatient Dr. Ramona Darden DO -Progressive Care Unit Work Phone: Start: 08-13-2024 End: 08-14-[address] Edenilson Nicholson DO Work Phone: [facility] Work Phone: Start: 08-13-2024 End: 08-14-2024 ambulatory Edenilson Nicholson DO Work Phone: [facility] Comment on above: left arm falling asl eep Start: 08-08-2024 End: 08-08-2024 Patient encounter procedure America Mendez ENGINE HEAD REPAIRER.IS ARCHITECT Work Phone: [facility] Comment on above: Insect bite of face, initial encounter (Primary Dx) Start: 08-08-2024 End: 08-08-2024 Telephone encounter Edenilson Nicholson DO Work Phone: [facility] [place] Comment on above: Patient Question Start: 08-08-2024 End: 08-08-2024 ambulatory EDENILSON NICHOLSON Facility:[facility] Start: 08-05-2024 End: 08-06-2024 Follow-up encounter Kathryn Addy ASH Work Phone: [facility] Comment on above: Results Start: 08-04-2024 End: 08-04-2024 Patient encounter procedure Kym DAVIS Work Phone: [facility] Comment on above: Urinary frequency (P rimary Dx) Start: 08-04-2024 End: 08-04-2024 ambulatory KYM LEWIS Facility:[facility] Start: 08-03-2024 End: 08-03-2024 Telephone encounter Roger Romero MD Work Phone: Pain Management Comment on above: Results (Lumbar MRI) Start: 07-29-2024 ambulatory [facility] Facility:[facility] Start: 07-29-2024 End: 07-29-2024 Subsequent hospital visit by physician Mari [facility] (I-Stat/1.5t) Work Phone: Radiology Comment on above: Spinal stenosis of l umbar region, unspecified whether neurogenic claudication present [M48.061] Start: 07-23-2024 End: 07-23-2024 ambulatory [facility] Facility:[facility] Start: 06-30-2024 End: 06-30-2024 Office outpatient visit 25 minutes Lani Arndt PA-C Work Phone: [facility] Comment on above: Sprain of ligament o f right ankle, initial encounter (Primary Dx) Start: 06-30-2024 End: 06-30-2024 Subsequent hospital visit by physician Xr [facility] Work Phone: Radiology Comment on above: Sprain of ligament o f right ankle, initial encounter [S93.401A] Start: 06-30-2024 End: 06-30-2024 ambulatory LANI ARNDT Facility:[facility] Start: 06-26-2024 End: 06-26-[address] Dina Olea MD -[facility] [place] Work Phone: Start: 06-26-2024 End: 06-26-2024 ambulatory Dina Olea Facility:[facility] Start: 06-24-2024 End: 06-24-2024 Follow-up encounter Edenilson Nicholson DO Work Phone: [facility] Start: 06-09-2024 End: 06-09-2024 Follow-up encounter Angeline Ray APRN.IS ARCHITECT Work Phone: [facility] Comment on above: Results Start: 06-08-2024 End: 06-08-2024 ambulatory EDENILSON NICHOLSON Facility:[facility] Start: 06-08-2024 End: 06-08-2024 Patient encounter procedure Edenilson Elkinson DO Work Phone: [facility] Comment on above: Hypertension, essent ial (Primary Dx); Abnormal findings in stool; JOSHUA (generalized anxiety disorder); Chronic left-sided low back pain without sciatica; Dementia without behavioral disturbance (HCC); Hyperlipidemia, mixed; Epigastric abdominal pain; IFG (impaired fasting glucose); Psoriatic arthritis (HCC) Start: 06-03-2024 End: 06-03-2024 Refill Edenilson Nicholson DO Work Phone: [facility] Comment on above: Refill Request Start: 06-02-2024 End: 06-02-2024 Subsequent hospital visit by physician [facility] Work Phone: Radiology Comment on above: Chronic left-sided l ow back pain without sciatica [M54.50, G89.29] Start: 06-02-2024 End: 06-02-2024 ambulatory ANGELINE RAY Facility:[facility] Start: 06-02-2024 End: 06-02-2024 Office outpatient visit 25 minutes Angeline Ray APRN.IS ARCHITECT Work Phone: [facility] [place] Comment on above: Chronic left-sided l ow back pain without sciatica (Primary Dx); JOSHUA (generalized anxiety disorder); Acute left-sided low back pain without sciatica; Nausea and vomiting, unspecified vomiting type; Pancreatic cyst (HCC); Left medial tibial stress syndrome, initial encounter Start: 05-15-2024 End: 05-15-2024 Emergency department patient visit EDENILSON GREENRISON Facility:[facility] Start: 05-08-2024 End: 05-08-2024 Follow-up encounter Kandi Park APRN.IS ARCHITECT Work Phone: [facility] [place] Start: 05-06-2024 End: 05-06-2024 ambulatory EDENILSON L NICHOLSON Facility:[facility] Start: 05-06-2024 End: 05-06-2024 Office outpatient visit 15 minutes Kandi Park APRN.IS ARCHITECT Work Phone: [facility] Comment on above: Urinary frequency (P rimary Dx) Start: 04-30-2024 End: 04-30-2024 ambulatory JUAN MENDEZ Facility:[facility] Start: 04-30-2024 End: 04-30-2024 Subsequent hospital visit by physician Mri [facility] (I-Stat/1.5t) Work Phone: Radiology Start: 04-29-2024 End: 04-29-2024 Refill Edenilson Mccarthy Nicholson DO Work Phone: [facility] [place] Comment on above: Refill Request Start: 04-27-2024 End: 04-27-2024 Follow-up encounter Sherrie Gonzales APRN.IS ARCHITECT Work Phone: [facility] Start: 04-27-2024 End: 04-27-2024 ambulatory EDENILSON L NICHOLSON Facility:[facility] Start: 04-27-2024 End: 04-27-2024 Subsequent hospital visit by physician Xr [facility] Work Phone: Radiology Comment on above: Acute cough [R05.1] Start: 04-26-2024 End: 04-26-2024 ambulatory EDENILSON L NICHOLSON Facility:[facility] Start: 04-26-2024 End: 04-26-2024 Patient encounter procedure Sherrie Gonzales PARMJIT.IS ARCHITECT Work Phone: [facility] Comment on above: Urinary frequency (P rimary Dx); Acute cough Start: 04-16-2024 End: 04-17-2024 Follow-up encounter To Duran MD Work Phone: [facility] Start: 04-15-2024 End: 04-15-2024 Telephone encounter To Duran MD Work Phone: [facility] Comment on above: Patient Update; Appo intment Start: 04-15-2024 End: 04-15-2024 ambulatory TO DURAN Facility:[facility] Start: 04-15-2024 End: 04-15-2024 Patient encounter procedure To Duran MD Work Phone: [facility] Comment on above: Productive cough (Pr imary Dx) Start: 04-06-2024 End: 04-06-2024 ambulatory Kathryn Flores PT [facility] Comment on above: Acute left-sided low back pain without sciatica Start: 04-06-2024 End: 04-06-2024 ambulatory Dina Lefty Facility:[facility] Start: 04-02-2024 End: 04-02-2024 Refill Edenilson Nicholson DO Work Phone: [facility] Comment on above: Refill Request Start: 03-25-2024 End: 03-25-2024 Telephone encounter Edenilson Nicholson DO Work Phone: [facility] [place] Comment on above: Insurance Authorizat ion Start: 03-25-2024 End: 03-25-2024 ambulatory ANGELINE BETHUTZMAN Facility:[facility] Start: 03-25-2024 End: 03-25-2024 Office outpatient visit 15 minutes Angeline Ray APRN.IS ARCHITECT Work Phone: [facility] Comment on above: Acute left-sided low back pain without sciatica (Primary Dx); JOSHUA (generalized anxiety disorder) Start: 03-23-2024 End: 03-23-2024 Telephone encounter Edenilson Nicholson DO Work Phone: [facility] Comment on above: urine problem Start: 03-23-2024 End: 03-23-2024 Emergency department patient visit EDENILSON NICHOLSON Facility:[facility] Start: 02-05-2024 End: 02-05-2024 ambulatory [facility] Facility:[facility] Start: 01-25-2024 End: 01-25-2024 ambulatory EDENILSON NICHOLSON Facility:[facility] Start: 01-25-2024 End: 01-25-2024 Patient encounter procedure America Mendez ENGINE HEAD REPAIRER.IS ARCHITECT Work Phone: [facility] Comment on above: Mouth sore (Primary Dx) Start: 01-23-2024 End: 01-27-2024 Telephone encounter Edenilson Nicholson DO Work Phone: [facility] Comment on above: Patient Update Start: 01-22-2024 End: 01-22-2024 ambulatory EDENILSON NICHOLSON Facility:[facility] Start: 01-22-2024 End: 01-22-2024 Patient encounter procedure Edenilson Nicholson DO Work Phone: [facility] Comment on above: Fungal nail infectio n (Primary Dx); Psoriatic arthritis (HCC); Hypertension, essential; JOSHUA (generalized anxiety disorder); Dementia without behavioral disturbance (HCC); Abdominal discomfort Start: 01-10-2024 End: 01-15-2024 Refill Edenilson Nicholson DO Work Phone: [facility] Comment on above: Refill Request Infection Patient Question Start: 01-09-2024 End: 01-09-2024 ambulatory ANGELINE RAY Facility:[facility] Start: 01-09-2024 End: 01-09-2024 Office outpatient visit 40 minutes Angeline Ray ENGINE HEAD REPAIRER.IS ARCHITECT Work Phone: [facility] Comment on above: Urinary frequency (P rimary Dx); Psoriatic arthritis (HCC); Open wound of right heel, subsequent encounter Start: 01-03-2024 End: 01-03-2024 ambulatory EDENILSON L NICHOLSON Facility:[facility] Start: 01-03-2024 End: 01-03-2024 Patient encounter procedure Kathryn Pearson ENGINE HEAD REPAIRER.IS ARCHITECT Work Phone: [facility] Comment on above: Urination frequency (Primary Dx); Rash Start: 01-03-2024 End: 01-03-2024 ambulatory Dina Henriquezki Facility:[facility] Start: 12-27-2023 End: 12-27-2023 Refill Edenilson Fabio Elkinson DO Work Phone: [facility] Comment on above: Refill Request Start: 12-24-2023 End: 12-24-2023 ambulatory EDENILSON L NICHOLSON Facility:[facility] Start: 12-24-2023 End: 12-24-2023 Patient encounter procedure Abigail Balderas APRN.IS ARCHITECT Work Phone: [facility] Comment on above: Urinary frequency (P rimary Dx); Skin infection Start: 12-24-2023 End: 12-24-2023 Telephone encounter Edenilson Greenrison DO Work Phone: [facility] Comment on above: Patient Call Start: 12-16-2023 End: 12-16-2023 ambulatory EDENILSON L NICHOLSON Facility:[facility] Start: 12-05-2023 End: 12-05-2023 Office outpatient visit 15 minutes Kinga Carter APRN.IS ARCHITECT Work Phone: [facility] Comment on above: Psoriatic arthritis (HCC) (Primary Dx); Psoriasis Start: 12-04-2023 End: 12-04-2023 Telephone encounter Edenilson Greenrison DO Work Phone: [facility] Comment on above: Patient Update Start: 11-28-2023 End: 11-28-2023 Telephone encounter Kinga Carter APRN.IS ARCHITECT Work Phone: [facility] Start: 11-25-2023 End: 11-25-2023 Subsequent hospital visit by physician Nalini [facility] Work Phone: Radiology Comment on above: Pain in lateral port ion of right ankle [M25.571] Start: 11-25-2023 End: 11-25-2023 Office outpatient visit 15 minutes Kinga Carter APRN.CNP Work Phone: [facility] Comment on above: Pain in lateral port ion of right ankle (Primary Dx) Start: 11-18-2023 End: 11-18-2023 Refill Edenilson Nicholson DO Work Phone: [facility] [place] Comment on above: Refill Request Start: 11-13-2023 End: 11-13-2023 Patient encounter procedure Anamaria Paul MD Work Phone: Gastroenterology Comment on above: Pancreatic cyst (Sarah ines Dx) Start: 11-08-2023 End: 11-08-2023 Refill Edenilson Nicholson DO Work Phone: [facility] [place] Comment on above: Refill Request Start: 10-29-2023 End: 10-29-2023 Telephone encounter Kym DAVIS Work Phone: [facility] Comment on above: Results Start: 10-28-2023 End: 10-28-2023 Patient encounter procedure Kym DAVIS Work Phone: [facility] Comment on above: Acute cough (Primary Dx); Exposure to COVID-19 virus Start: 10-24-2023 End: 10-24-2023 Telephone encounter Anamaria Paul MD Work Phone: Gastroenterology Comment on above: Appointment ([facility]) Start: 10-22-2023 End: 10-22-2023 Patient encounter procedure Edenilson Nicholson DO Work Phone: [facility] Comment on above: JOSHUA (generalized anx iety disorder) (Primary Dx); Bee sting, accidental or unintentional, initial encounter; Osteoarthritis of spine with radiculopathy, cervical region; Radiculopathy, cervical region; Hypertension, essential; Hyperlipidemia, mixed; Dementia without behavioral disturbance (HCC) Start: 09-24-2023 End: 12-02-2023 Telephone encounter Edenilson Nicholson DO Work Phone: [facility] [place] Comment on above: ER F/U; Nausea & Vom iting Start: 09-23-2023 End: 09-23-2023 Emergency department patient visit MAXIMO PRESOCTT Facility:[facility] Start: 09-22-2023 ambulatory Julius Jenkins RN NURSE O N CALL Comment on above: Abdominal Pain Start: 09-18-2023 End: 09-18-2023 Patient encounter procedure Edenilson Nicholson DO Work Phone: [facility] Comment on above: Dementia without beh avioral disturbance (HCC) (Primary Dx); JOSHUA (generalized anxiety disorder); Abdominal discomfort; Hypertension, essential Start: 08-17-2023 ambulatory Estrellita Morton RN NURS E CABLE SPLICER APPRENTICE Comment on above: Question Start: 08-09-2023 Refill Edenilson rivera DO Work Phone: [facility] Comment on above: Refill Request Start: 08-02-2023 Refill Edenilson rivera DO Work Phone: [facility] Comment on above: Refill Request Start: 08-01-2023 Telephone encounter Edenilson giordano DO Work Phone: [facility] [place] Comment on above: Refill Request; requ esting medication no longer on list Start: 07-16-2023 End: 07-16-2023 Patient encounter procedure Angeline Ray APRN.IS ARCHITECT Work Phone: [facility] [place] Comment on above: JOSHUA (generalized anx iety disorder) (Primary Dx); Stress; Abdominal discomfort; RUQ abdominal pain Start: 07-08-2023 Telephone encounter Chapis ervin APRN.IS ARCHITECT Work Phone: [facility] Comment on above: Results Start: 07-04-2023 ambulatory Edenilson rivera DO Work Phone: [facility] Comment on above: Urinary Symptoms Start: 07-04-2023 End: 07-04-2023 Patient encounter procedure Chapis Valle APRN.IS ARCHITECT Work Phone: [facility] [place] Comment on above: UTI symptoms (Primar y Dx) Start: 06-28-2023 Telephone encounter Angeline Roberto ENGINE HEAD REPAIRER.IS ARCHITECT Work Phone: [facility] Comment on above: Results Start: 06-27-2023 End: 06-27-2023 Subsequent hospital visit by physician Nalini [facility] Work Phone: Radiology Comment on above: Acute cough [R05.1] Start: 06-27-2023 End: 06-27-2023 Patient encounter procedure Angeilne Ray ENGINE HEAD REPAIRER.IS ARCHITECT Work Phone: [facility] Comment on above: Persistent cough (Pr imary Dx); Acute cough; Decreased lung sounds Start: 06-26-2023 ambulatory Edenilson rivera DO Work Phone: [facility] Comment on above: Medication Problem Start: 06-26-2023 Telephone encounter Edenilson giordano DO Work Phone: [facility] Comment on above: Opened In Error Start: 06-12-2023 End: 06-12-2023 Patient encounter procedure Angeline Ray ENGINE HEAD REPAIRER.IS ARCHITECT Work Phone: [facility] Comment on above: Abdominal discomfort (Primary Dx); Hypertension, essential; Dementia without behavioral disturbance (HCC); Oral lesion Start: 06-08-2023 ambulatory Sowmya Haywood RN NURS E CABLE SPLICER APPRENTICE Comment on above: Information Start: 06-03-2023 Telephone encounter Edenilson giordano DO Work Phone: [facility] Comment on above: Patient Update; Medi cation Problem Start: 05-27-2023 End: 05-27-2023 ambulatory [facility] Work Phone: Start: 05-27-2023 End: 05-27-2023 Patient encounter procedure [facility] Work Phone: Start: 05-24-2023 Telephone encounter Edenilson giordano DO Work Phone: [facility] Start: 05-22-2023 ambulatory EDENILSON Uriarte ity:[id number] Start: 05-22-2023 End: 05-22-2023 Subsequent hospital visit by physician Mri [facility] Work Phone: [facility] Comment on above: Pancreas cyst [K86.2 ] Start: 05-08-2023 ambulatory [facility] ty:[facility] Start: 05-08-2023 Telephone encounter Angeline Roberto ENGINE HEAD REPAIRER.IS ARCHITECT Work Phone: [facility] Comment on above: Results; Appointment ; Patient Question Start: 05-08-2023 End: 05-08-2023 Subsequent hospital visit by physician [facility] Comment on above: Elevated lipase [R74 .8] Start: 05-08-2023 End: 05-08-2023 Patient encounter procedure Angeline Ray ENGINE HEAD REPAIRER.IS ARCHITECT Work Phone: [facility] Comment on above: Elevated lipase (Sarah ines Dx); Bloating; Upper abdominal pain; Nausea Start: 05-06-2023 Telephone encounter Mellisa duran DO Work Phone: Colorectal Surgery Comment on above: Plastic Surgery Technician - O ther Start: 04-17-2023 End: 04-17-2023 Patient encounter procedure Edenilson Nicholson DO Work Phone: [facility] Comment on above: Hypertension, essent ial (Primary Dx); JOSHUA (generalized anxiety disorder); Dementia without behavioral disturbance (HCC); Rectal prolapse; Short-term memory loss Start: 03-11-2023 End: 03-11-2023 ambulatory [facility] Work Phone: Start: 03-11-2023 End: 03-11-2023 Patient encounter procedure [facility] Work Phone: Start: 02-14-2023 Telephone encounter Nel leung MD Work Phone: [facility] Comment on above: Schedule Surgery Start: 02-13-2023 Telephone encounter Mellisa duran DO Work Phone: Colorectal Surgery Comment on above: Plastic Surgery Technician - O ther Start: 02-06-2023 Refill Edenilson rivera DO Work Phone: [facility] [place] Comment on above: Refill Request Start: 02-05-2023 Refill Edenilson rivera DO Work Phone: [facility] Comment on above: Refill Request Start: 01-28-2023 End: 01-28-2023 Patient encounter procedure Kandi Park ENGINE HEAD REPAIRER.IS ARCHITECT Work Phone: [facility] [place] Comment on above: Visit for suture rem oval (Primary Dx) Start: 01-23-2023 Telephone encounter Kandi rivera ENGINE HEAD REPAIRER.IS ARCHITECT Work Phone: [facility] Start: 01-21-2023 End: 01-21-2023 Patient encounter procedure Kandi Park ENGINE HEAD REPAIRER.IS ARCHITECT Work Phone: [facility] Comment on above: Fall, subsequent enc ounter (Primary Dx); Urinary frequency; Laceration of left eyebrow, subsequent encounter Start: 01-20-2023 ambulatory Mellisa Hathaway RN NURS E CABLE SPLICER APPRENTICE Comment on above: Question Start: 01-19-2023 End: 01-19-2023 Emergency department patient visit DR MIRA VILLATORO DO Facility:[facility] Start: 01-19-2023 End: 01-19-2023 Emergency department patient visit DR MIRA VILLATORO DO [facility] Start: 01-16-2023 Telephone encounter Edenilson Fabio Serrano kelseyroro DO Work Phone: [facility] [place] Comment on above: Results Start: 01-14-2023 End: 01-14-2023 Patient encounter procedure Michael Del Castillo PA-C Work Phone: Orthopaedics Comment on above: Pain due to knee mt nt prosthesis, subsequent encounter (Primary Dx); Status post total left knee replacement Start: 01-14-2023 Telephone encounter Nel leung MD Work Phone: [facility] Comment on above: Schedule Surgery Start: 01-11-2023 End: 01-11-2023 Office outpatient visit 15 minutes Michael Del Castillo PA-C Work Phone: Orthopaedics Comment on above: Pain due to knee mt nt prosthesis, initial encounter ([facility]) (Primary Dx); Status post total left knee replacement Start: 01-11-2023 End: 01-11-2023 Subsequent hospital visit by physician [facility] Khloe Sullivan Work Phone: Radiology Comment on above: Left knee pain, unsp ecified chronicity [M25.562] Start: 01-09-2023 Telephone encounter Nel leung MD Work Phone: [facility] Comment on above: Schedule Surgery Start: 01-02-2023 Telephone encounter Nel leung MD Work Phone: [facility] Comment on above: pre op and post op a ppts Start: 12-27-2022 End: 12-27-2022 Subsequent hospital visit by physician Mri [facility] (I-Stat/1.5t) Work Phone: Radiology Comment on above: Cystic mass of pancr eas [K86.2] Start: 12-11-2022 End: 12-11-2022 ambulatory [facility] Work Phone: Start: 12-11-2022 End: 12-11-2022 Patient encounter procedure [facility] [place] Work Phone: Start: 12-10-[address] ela ASH Work Phone: [facility] [place] Comment on above: Results Start: 11-26-2022 End: 11-26-2022 Orders Only Nel Zayas MD Work Phone: Urogynecology Comment on above: Vaginal vault prolap se (Primary Dx); Rectocele; Cystocele, midline; Urinary incontinence, urge; Overactive bladder; Rectal prolapse; Preoperative examination Osteopenia, senile [ M85.80] Start: 11-26-2022 Preprocedural examination done Nel Zayas MD Work Phone: [facility] Work Phone: Start: 11-22-2022 Telephone encounter Mellisa Darlin duran DO Work Phone: Colorectal Surgery Comment on above: Plastic Surgery Technician - O ther Start: 11-20-2022 End: 11-20-2022 Subsequent hospital visit by physician Glo [facility] ([facility]) Work Phone: Cat Scan Comment on above: Chronic cough [R05.3 ] Start: 11-19-2022 End: 11-19-2022 Patient encounter procedure Mellisa Griselda DO Work Phone: Colorectal Surgery Comment on above: Rectocele (Primary D x) Start: 11-15-2022 Telephone encounter Abigail Barton APRN.CNP Work Phone: [facility] Comment on above: Results Start: 11-14-2022 End: 11-14-2022 Patient encounter procedure Edenilson Nicholson DO Work Phone: [facility] [place] Comment on above: Recurrent UTI (urina ry tract infection) (Primary Dx); Osteopenia, senile; Chronic cough; Rales; Psoriatic arthritis (HCC); Chronic obstructive pulmonary disease, unspecified COPD type (HCC); Rectal prolapse Start: 11-13-2022 End: 11-13-2022 Office outpatient visit 25 minutes Johnie Aguirre APRN.IS ARCHITECT Work Phone: [facility] Comment on above: Urinary frequency (P rimary Dx) Start: 11-07-2022 Refill Edenilson rivera DO Work Phone: [facility] [place] Comment on above: Refill Request Start: 10-12-2022 ambulatory Edenilson rivera DO Work Phone: [facility] Comment on above: Chest Pain Start: 10-12-2022 End: 10-12-2022 Patient encounter procedure Cristhian Rodney PA-C Work Phone: [facility] Comment on above: Viral bronchitis (Pr imary Dx); Chronic obstructive pulmonary disease, unspecified COPD type (HCC) Start: 10-06-2022 ambulatory Silva narvaez RN NURSE CABLE SPLICER APPRENTICE Comment on above: Medication Problem Start: 09-28-2022 Telephone encounter Nubia Duran atul ENGINE HEAD REPAIRER.IS ARCHITECT Work Phone: [facility] Comment on above: Results Start: 09-25-2022 End: 09-25-2022 Subsequent hospital visit by physician Xr [facility] Work Phone: Radiology Comment on above: Acute cough [R05.1] Start: 09-20-2022 ambulatory Estrellita Morton RN NURS E CABLE SPLICER APPRENTICE Comment on above: Cough Start: 09-20-2022 End: 09-20-2022 Patient encounter procedure Cristhian Rodney PA-C Work Phone: [facility] Comment on above: Acute cough (Primary Dx); Bee sting, accidental or unintentional, initial encounter Start: 09-13-2022 End: 09-13-2022 ambulatory [facility] Work Phone: Start: 09-13-2022 End: 09-13-2022 Patient encounter procedure [facility] [place] Work Phone: Start: 09-03-2022 Telephone encounter Angeline Beth christopherrafaela ENGINE HEAD REPAIRER.IS ARCHITECT Work Phone: [facility] Comment on above: Results Start: 08-30-2022 Refill Edenilson rivera DO Work Phone: [facility] Comment on above: Refill Request Start: 08-15-2022 End: 08-15-2022 Subsequent hospital visit by physician [facility] ([facility]) Work Phone: Cat Scan Comment on above: Short-term memory lo ss [R41.3] Start: 08-15-2022 Telephone encounter Edenilson giordano DO Work Phone: [facility] Comment on above: Results Start: 08-01-2022 End: 08-01-2022 Patient encounter procedure Edenilson Nicholson DO Work Phone: [facility] Comment on above: Nasal sore (Primary Dx); JOSHUA (generalized anxiety disorder); Cough, persistent; Short-term memory loss; Word finding difficulty; Rectal prolapse; Chronic obstructive pulmonary disease, unspecified COPD type (HCC); Psoriatic arthritis (HCC) Start: 07-14-2022 End: 07-14-2022 Patient encounter procedure Efra Stinson MD Work Phone: [facility] Comment on above: Rash (Primary Dx); Bug bite, initial encounter Start: 07-11-2022 Refill Edenilson rivera DO Work Phone: [facility] Comment on above: Refill Request Start: 06-27-2022 Telephone encounter Edenilson giordano DO Work Phone: [facility] Comment on above: Medication Question Start: 06-27-2022 End: 06-27-2022 Patient encounter procedure Angeline Ray APRN.IS ARCHITECT Work Phone: [facility] Comment on above: JOSHUA (generalized anx iety disorder) (Primary Dx); Cough, persistent; Pain of right lower extremity; Chronic obstructive pulmonary disease, unspecified COPD type (HCC); Psoriatic arthritis (HCC) Start: 06-25-2022 End: 06-25-2022 Patient encounter procedure [facility] Work Phone: Start: 06-22-2022 ambulatory Edenilson rivera DO Work Phone: [facility] Comment on above: Anxiety Start: 06-16-2022 Telephone encounter Mellisa duran DO Work Phone: Colorectal Surgery Comment on above: Results Start: 06-09-2022 Refill Edenilson rivera DO Work Phone: [facility] Comment on above: Refill Request Start: 05-22-2022 Telephone encounter Mellisa duran DO Work Phone: Colorectal Surgery Comment on above: Plastic Surgery Technician - O ther Refill Request Start: 05-21-2022 ambulatory Dimple mckeon RN Work Phone: [employer] Comment on above: Community Monitoring Outreach (Enrollment H@H) Start: 05-10-2022 End: 05-10-2022 Subsequent hospital visit by physician Owen Rivas [...] Telephone encounter Edenilson giordano DO Work Phone: [facility] Comment on above: Patient Update Start: 05-03-2022 Telephone encounter Edenilson giordano DO Work Phone: [facility] [place] Comment on above: Medication Question Start: 04-27-2022 Telephone encounter Mellisa duran DO Work Phone: Colorectal Surgery Comment on above: Results Start: 04-24-2022 End: 04-24-2022 Patient encounter procedure Edenilson Nicholson DO Work Phone: [facility] Comment on above: Urinary frequency (P rimary Dx); Prolapse of intestine; Pelvic floor dysfunction in female; Hypertension, essential; Dyslipidemia Start: 04-20-2022 Telephone encounter Mellisa duran DO Work Phone: Colorectal Surgery Comment on above: Plastic Surgery Technician - O ther Start: 04-20-2022 End: 04-20-2022 Patient encounter procedure Angeline Cory ASH Work Phone: [facility] Comment on above: Urinary frequency (P rimary Dx); Pain in both lower extremities Start: 04-19-2022 ambulatory Edenilson rivera DO Work Phone: [facility] Comment on above: Leg Pain Start: 04-17-2022 Orders Only Nel ordonez MD Work Phone: Urogynecology Comment on above: Urinary incontinence , urge (Primary Dx); Preoperative examination Start: 04-17-2022 Preprocedural examination done Nel Zayas MD Work Phone: Urogynecology Start: 04-16-2022 End: 04-16-2022 ambulatory Clare Gibbs ENGINE HEAD REPAIRER.IS ARCHITECT Work Phone: Colorectal Surgery Comment on above: Manometry Start: 04-16-2022 End: 04-16-2022 Patient encounter procedure Clare Gibbs ENGINE HEAD REPAIRER.IS ARCHITECT Work Phone: [facility] Comment on above: Screening for colon cancer (Primary Dx) Start: 04-12-2022 Telephone encounter Edenilson giordano DO Work Phone: [facility] Comment on above: Patient Question Start: 04-09-2022 Telephone encounter Edenilson giordano DO Work Phone: [facility] Comment on above: Patient Update Start: 04-07-2022 End: 04-07-2022 Patient encounter procedure Efra Stinson MD Work Phone: [facility] Comment on above: Dental infection (Pr imary Dx) Start: 03-26-2022 End: 03-26-2022 ambulatory [facility] Work Phone: Start: 03-26-2022 End: 03-26-2022 Patient encounter procedure [facility] Start: 03-22-2022 Refill Edenilson Lopez son DO Work Phone: [facility] Comment on above: Opened In Error Start: 03-08-2022 End: 03-08-2022 Subsequent hospital visit by physician [facility] ([facility]-Stat) Radiology Comment on above: Rectocele [N81.6] Start: 03-06-2022 Telephone encounter Laisha mckeon PA-C Work Phone: [facility] Comment on above: Results Medication Problem Start: 03-05-2022 End: 03-05-2022 Patient encounter procedure Laisha Espinoza PA-C Work Phone: [facility] Comment on above: Urinary frequency (P rimary Dx); Viral URI Start: 02-16-2022 End: 02-16-2022 Patient encounter procedure Lynne Silverman ENGINE HEAD REPAIRER.IS ARCHITECT Work Phone: Urology Comment on above: Rectocele (Primary D x); Urinary frequency; Frequent UTI Start: 02-14-2022 End: 02-14-2022 Patient encounter procedure Edenilson Nicholson DO Work Phone: [facility] Comment on above: Prolapse of intestin e (Primary Dx); Pelvic floor dysfunction in female; Urinary frequency Start: 02-11-2022 Telephone encounter Sherrie hagen ENGINE HEAD REPAIRER.IS ARCHITECT Work Phone: [place] [facility] Care Comment on above: Results Start: 02-10-2022 End: 02-10-2022 Office outpatient visit 25 minutes Johnie Aguirre ENGINE HEAD REPAIRER.IS ARCHITECT Work Phone: [facility] Comment on above: Urinary frequency (P rimary Dx) Start: 02-09-2022 End: 02-09-2022 ambulatory Laisha Sullivan PT Work Phone: [facility] [employer] Start: 02-09-2022 End: 02-09-2022 Manual pelvic examination Laisha Sullivan PT Work Phone: [facility] Comment on above: Prolapse of intestin e (Primary Dx); Urinary incontinence, unspecified type; Pelvic floor dysfunction in female Start: 01-24-2022 Telephone encounter Edenilson giordano DO Work Phone: [facility] Comment on above: Results Start: 01-23-2022 End: 01-23-2022 ambulatory Laisha Sullivan PT Work Phone: [facility] [employer] Start: 01-23-2022 End: 01-23-2022 Manual pelvic examination Laisha Sullivan PT Work Phone: [facility] Comment on above: Prolapse of intestin e (Primary Dx); Urinary incontinence, unspecified type; Pelvic floor dysfunction in female Start: 01-22-2022 End: 01-22-2022 Patient encounter procedure Edenilson Nicholson DO Work Phone: [facility] Comment on above: Urinary frequency (P rimary Dx); Pelvic floor dysfunction in female; Prolapse of intestine; Neck pain; Osteoarthritis of spine with radiculopathy, cervical region Start: 01-19-2022 ambulatory Edenilson rivera DO Work Phone: [facility] Comment on above: headache-left side Start: 01-16-2022 End: 01-16-2022 ambulatory Laisha Sullivan PT Work Phone: [facility] Start: 01-16-2022 End: 01-16-2022 Manual pelvic examination Laisha Sullivan PT Work Phone: [facility] Comment on above: Prolapse of intestin e (Primary Dx); Urinary incontinence, unspecified type; Pelvic floor dysfunction in female Start: 01-14-2022 Telephone encounter Johnie kang APRN.IS ARCHITECT Work Phone: [facility] Comment on above: Results Start: 01-12-2022 ambulatory Edenilson rivera DO Work Phone: [facility] Comment on above: UTI Start: 01-12-2022 End: 01-12-2022 Patient encounter procedure Bambi Alex APRN.IS ARCHITECT Work Phone: [facility] Comment on above: Urinary frequency (P rimary Dx) Start: 01-01-2022 End: 01-01-2022 ambulatory [facility] Work Phone: Start: 01-01-2022 End: 01-01-2022 Patient encounter procedure [facility] Start: 12-23-2021 Telephone encounter Edenilson giordano DO Work Phone: [facility] Comment on above: Epistaxis Start: 12-22-2021 [...] encounter procedure Edenilson Nicholson DO Work Phone: [facility] Comment on above: Prolapse of intestin e (Primary Dx); Pelvic floor dysfunction in female; Urinary incontinence, unspecified type Start: 12-02-2021 ambulatory Samantha Marin RN NURS E CABLE SPLICER APPRENTICE Comment on above: Rectal Problem Start: 11-20-2021 ambulatory Edenilson Lopez son DO Work Phone: [facility] Comment on above: Foot Swelling; Derm Problem Start: 11-01-[address] christopherrichmond ENGINE HEAD REPAIRER.IS ARCHITECT Work Phone: [facility] Comment on above: Results Start: 10-31-2021 Telephone encounter Edenilson Fabio giordano DO Work Phone: [facility] Comment on above: Rx refill; not on cu rrent med list Start: 10-30-2021 End: 10-30-2021 ambulatory [facility] Work Phone: Start: 10-30-2021 End: 10-30-2021 Patient encounter procedure [facility] Start: 10-29-2021 ambulatory Kinga an LPN NURSE CABLE SPLICER APPRENTICE Comment on above: Results; returning a call Start: 10-28-2021 Telephone encounter Angeline Chibweyonasrichmond ENGINE HEAD REPAIRER.IS ARCHITECT Work Phone: [facility] Comment on above: Results Start: 10-27-2021 ambulatory Edenilson rivera DO Work Phone: [facility] Comment on above: Diarrhea Start: 10-27-2021 End: 10-27-2021 Patient encounter procedure Angeline Ray ENGINE HEAD REPAIRER.IS ARCHITECT Work Phone: [facility] [place] Comment on above: Diarrhea, unspecifie d type (Primary Dx); Mild headache Start: 10-20-2021 Refill Edenilson Lopez son DO Work Phone: [facility] [place] Comment on above: Refill Request Start: 10-12-2021 Refill Edenilson Lopez son DO Work Phone: [facility] [place] Comment on above: Refill Request Start: 09-18-2021 End: 09-18-2021 Patient encounter procedure Michael Del Castillo PA-C Work Phone: Orthopaedics Comment on above: Status post total le ft knee replacement (Primary Dx); Status post total right knee replacement Start: 09-17-2021 Refill Willy Giraldo Work Phone: Orthopaedics Comment on above: Refill Request Start: 09-12-2021 End: 09-12-2021 Office outpatient visit 15 minutes Charissa Jauregui ENGINE HEAD REPAIRER.IS ARCHITECT Work Phone: [facility] Comment on above: Injury of left hand, initial encounter (Primary Dx) Start: 08-03-2021 Telephone encounter Margaret Knutson Work Phone: Podiatry Comment on above: Results Start: 08-02-2021 End: 08-02-2021 Subsequent hospital visit by physician Nalini [facility] Work Phone: Radiology Comment on above: Repetitive stress in jury [X50.3XXA] Start: 08-02-2021 End: 08-02-2021 Patient encounter procedure Margaret Crane Work Phone: Podiatry Comment on above: Repetitive stress in jury (Primary Dx); Foot pain, left; Erythema of foot Start: 08-01-2021 End: 08-01-2021 Patient encounter procedure [facility] Start: 07-20-2021 Telephone encounter Angeline Roberto ENGINE HEAD REPAIRER.IS ARCHITECT Work Phone: [facility] [place] Comment on above: Results Start: 07-20-2021 End: 07-20-2021 Subsequent hospital visit by physician Nalini [facility] Work Phone: Radiology Comment on above: Foot pain, left [M79 .672] Start: 07-20-2021 End: 07-20-2021 Patient encounter procedure Angeline Ray APRN.IS ARCHITECT Work Phone: [facility] [place] Comment on above: Foot pain, left (Sarah ines Dx); Erythema of foot; Urinary frequency; Sensation of fullness in left ear; Psoriatic arthritis (HCC); Recurrent cold sores; Seasonal allergies; Scalp lump Start: 07-19-2021 Refill Edenilson rivera DO Work Phone: [facility] [place] Comment on above: Refill Request Start: [...] 06-28-2021 Refill Edenilson rivera DO Work Phone: [facility] [place] Comment on above: Refill Request Start: 06-27-2021 End: 06-27-2021 Patient encounter procedure Edenilson Nicholson DO Work Phone: [facility] [place] Comment on above: Neck pain (Primary D x); Hypertension, essential; IFG (impaired fasting glucose); Dyslipidemia; Inflammatory arthritis; Rib injury; Osteoarthritis of spine with radiculopathy, cervical region; DDD (degenerative disc disease), cervical Start: 06-23-2021 Orders Only Michael Del Castillo PA-C Work Phone: Orthopaedics Comment on above: Pain in both knees, unspecified chronicity (Primary Dx) Start: 06-19-2021 End: 06-19-2021 Discharged Recurring [facility] Start: 06-12-2021 Telephone encounter Charissa flower ENGINE HEAD REPAIRER.IS ARCHITECT Work Phone: [facility] Comment on above: Results Start: 06-09-2021 End: 06-09-2021 Subsequent hospital visit by physician Xr [facility] Work Phone: Radiology Comment on above: Flank pain [R10.9] Start: 06-09-2021 End: 06-09-2021 Patient encounter procedure Charissa Jauregui ENGINE HEAD REPAIRER.IS ARCHITECT Work Phone: [facility] Comment on above: Flank pain (Primary Dx) Start: 06-08-2021 Telephone encounter Angeline Roberto ENGINE HEAD REPAIRER.IS ARCHITECT Work Phone: [facility] Comment on above: Results Start: 06-07-2021 Telephone encounter Edenilson giordano DO Work Phone: [facility] Comment on above: Opened In Error Start: 06-07-2021 End: 06-07-2021 Patient encounter procedure Efra Stinson MD Work Phone: [facility] Comment on above: Muscle strain of mar[address] [facility] wall, initial encounter (Primary Dx) Start: 05-02-2021 End: 05-02-2021 Subsequent hospital visit by physician Xr [facility] Work Phone: Radiology Comment on above: Inflammatory arthrit is [M19.90] Start: 04-10-2021 End: 04-10-2021 Subsequent hospital visit by physician Xr [facility] Work Phone: Radiology Comment on above: Injury of left hip, initial encounter [S79.912A] Start: 03-25-2021 End: 03-25-2021 Patient encounter procedure [facility], Specimen Start: 03-24-2021 End: 03-24-2021 Patient encounter procedure [facility], Specimen Start: 10-03-2020 End: 10-03-2020 Subsequent hospital visit by physician Xr [facility] Work Phone: Radiology Comment on above: Dry cough [R05] Procedures Date Procedure Procedure Detail Performing Clinician Start: 11-14-2024 Radiologic exam chest 2 views Abigail Balderas ENGINE HEAD REPAIRER.IS ARCHITECT Work Phone: Start: 11-04-[address] Edenilson Nicholson DO Work Phone: Start: 11-04-2024 Urnls dip stick/tabl et reagent auto microscopy Dr. Edenilson Nicholson DO Work Phone: Start: 08-14-2024 MRI of brain without contrast Dr. Edenilson Nicholson DO Work Phone: Start: 08-14-[address] Edenilson Nicholson DO Work Phone: Start: 08-14-2024 Serum inorganic phos phate measurement Dr. Edenilson Nicholson DO Work Phone: Start: 08-13-[address] Edenilson Nicholson DO Work Phone: Start: 08-13-2024 CT angiography of he ad and neck Dr. Edenilson Nicohlson DO Work Phone: Start: 08-13-2024 CT of head without contrast Dr. Edenilson Nicholson DO Work Phone: Start: 08-04-2024 Urnls dip stick/tabl et rgnt auto w/o microscopy Kathryn Pearson ENGINE HEAD REPAIRER.IS ARCHITECT Work Phone: Start: 07-29-2024 Mri spinal canal lum bar w/o contrast material Mary Keith ENGINE HEAD REPAIRER.IS ARCHITECT Work Phone: Start: 06-30-2024 Radex ankle complete minimum 3 views Lani Clutter PA-C Work Phone: Start: 05-06-2024 Urnls dip stick/tabl et rgnt auto w/o microscopy Kandi Park ENGINE HEAD REPAIRER.IS ARCHITECT Work Phone: Start: 04-27-2024 Radiologic exam chest 2 views Sherrie Gonzales ENGINE HEAD REPAIRER.IS ARCHITECT Work Phone: Start: 04-26-2024 Urnls dip stick/tabl et rgnt auto w/o microscopy Kym DAVIS Work Phone: Start: 01-03-2024 Urnls dip stick/tabl et rgnt auto w/o microscopy Efra Stinson MD Work Phone: Start: 12-24-2023 Urnls dip stick/tabl et rgnt auto w/o microscopy [facility] Start: 07-16-2023 Urnls dip stick/tabl et rgnt auto w/o microscopy [facility] ENGINE HEAD REPAIRER.IS ARCHITECT Work Phone: Start: 07-04-2023 Urnls dip stick/tabl et rgnt auto w/o microscopy Chapis Podlogterese ENGINE HEAD REPAIRER.IS ARCHITECT Work Phone: Start: 06-27-2023 Radiologic exam chest 2 views [facility] ENGINE HEAD REPAIRER.IS ARCHITECT Work Phone: Start: 06-27-2023 COVID & INFLUENZA A/ B & RSV NAAT, ROUTINE [facility] ENGINE HEAD REPAIRER.IS ARCHITECT Work Phone: Start: 05-08-2023 Us abdominal real ti me w/image limited [facility] ENGINE HEAD REPAIRER.IS ARCHITECT Work Phone: Start: 01-21-2023 Urnls dip stick/tabl et rgnt auto w/o microscopy Kandi Park ENGINE HEAD REPAIRER.IS ARCHITECT Work Phone: Start: 01-14-2023 Arthrocentesis aspir &/inj [...] dip stick/tabl et rgnt auto w/o microscopy Bambi Alex ENGINE HEAD REPAIRER.IS ARCHITECT Work Phone: Start: 09-25-2022 Radiologic exam chest 2 views Nubia Bahena ENGINE HEAD REPAIRER.IS ARCHITECT Work Phone: Start: 08-15-2022 Ct head/brain w/o [...] stick/tabl et rgnt auto w/o microscopy Angeline Ray ENGINE HEAD REPAIRER.IS ARCHITECT Work Phone: Start: 04-16-2022 [facility] [place] [facility] Yi Gonsalves ENGINE HEAD REPAIRER.IS ARCHITECT Work Phone: Start: 03-08-2022 Radiologic exam colo n single contrast study Yi Gonsalves ENGINE HEAD REPAIRER.IS ARCHITECT Work Phone: Start: 03-05-2022 COVID WITH FLUA+B, ROUTINE Laisha R Athy PA-C Work Phone: Start: 03-05-2022 Culture bacterial qu anttative colony count urine Laisha Espinoza PA-C Work Phone: Start: 03-05-2022 Urnls dip stick/tabl et rgnt auto w/o microscopy Laisha Espinoza PA-C Work Phone: Start: 02-16-2022 Urnls dip stick/tabl et rgnt auto w/o microscopy Lynne Silverman ENGINE HEAD REPAIRER.IS ARCHITECT Work Phone: Start: 02-10-2022 Urnls dip stick/tabl et rgnt auto w/o microscopy Abigail Balderas ENGINE HEAD REPAIRER.IS ARCHITECT Work Phone: Start: 01-22-2022 Urnls dip stick/tabl et rgnt auto w/o microscopy Edenilson Nicholson DO Work Phone: Start: 01-12-2022 Urnls dip stick/tabl et rgnt auto w/o microscopy Efra Stinson MD Work Phone: Start: 12-22-2021 Radiologic examinati on knee 3 views Michael Del Castillo PA-C Work Phone: Start: 10-28-2021 Blood occult peroxid ase actv qual feces 1-3 spec Angeline Ray ENGINE HEAD REPAIRER.IS ARCHITECT Work Phone: Start: 10-28-2021 Nfct agent dna/rna gastrointestinal pathogen Angeline Ray ENGINE HEAD REPAIRER.IS ARCHITECT Work Phone: Start: 10-27-2021 COVID WITH FLUA+B, ROUTINE Angeline Ray ENGINE HEAD REPAIRER.IS ARCHITECT Work Phone: Start: 08-02-2021 Radex foot complete minimum 3 views Margaret Crane Work Phone: Start: 07-20-2021 Radex foot complete minimum 3 views Angeline Ray ENGINE HEAD REPAIRER.IS ARCHITECT Work Phone: Start: 07-20-2021 Urnls dip stick/tabl et rgnt auto w/o microscopy Angeline Ray ENGINE HEAD REPAIRER.IS ARCHITECT Work Phone: Start: 07-17-2021 Radiologic examinati on knee 3 views Glenna Bhandari PA-C Work Phone: Start: 06-09-2021 Radex ribs uni w/pos teroant ch minimum 3 views Charissa Jauregui ENGINE HEAD REPAIRER.IS ARCHITECT Work Phone: Start: 06-09-2021 Urnls dip stick/tabl et rgnt auto w/o microscopy Charissa Jauregui ENGINE HEAD REPAIRER.IS ARCHITECT Work Phone: Start: 05-02-2021 Radex hand minimum 3 views Mariam Beltran MD Work Phone: Start: 04-10-2021 Radex hip unilateral with pelvis 2-3 views Angeline Ray ENGINE HEAD REPAIRER.[facility] Work Phone: Start: 04-10-2021 Radiologic exam chest 2 views Angeline Ray ENGINE HEAD REPAIRER.[facility] Work Phone: Start: 03-25-2021 End: 03-25-2021 Bacteria identification test Start: 03-24-2021 Bacteria identification test Start: 10-03-2020 Radiologic exam chest 2 views Edenilson Nicholson DO Work Phone: Plan of Treatment Date Care Activity Detail Author Start: 11-23-2032 Urine microalbumin profile DTaP,Tdap,Td Vaccine (4 - Td or Tdap) [facility] Start: 07-11-2030 Urine microalbumin profile [facility] Start: 05-16-2027 Diabetes Screening Diabetes Screening [facility] Start: 03-23-2027 Diabetes Screening Diabetes Screening [facility] Start: 09-22-2026 Diabetes Screening Diabetes Screening [facility] Start: 05-07-2026 Diabetes Screening Diabetes Screening [facility] Start: 11-11-2025 Pneumococcal Vaccine: 50+ (1 of 2 - PCV) Pneumococcal Vaccine: 50+ (1 of 2 - PCV) [facility] Comment on above: Postponed from 02/27/1959 (Declined at t his time) Start: 11-11-2025 RSV Vaccine (1 - 1-dose 75+ series) RSV Vaccine (1 - 1-dose 75+ series) [facility] Comment on above: Postponed from 02/27/2015 (Declined at t his time) Start: 11-11-2025 Shingrix Vaccine (1 of 2) Shingrix Vaccine (1 of 2) [facility] Comment on above: Postponed from 11/03/2012 (Declined at t his time) Start: 08-31-2025 Influenza [facility] Comment on above: Postponed from 11/02/2024 (Declined at t his time) Start: 08-02-2025 DIABETES SCREEN DIABETES SCREEN [facility] Start: 08-02-2025 Diabetes Screening Diabetes Screening [facility] Start: 01-21-2025 Covid-19 Vaccine (#1) Covid-19 Vaccine (#1) [facility] Comment on above: Postponed from 02/27/1945 (Declined at t his time) Start: 12-02-2024 DIABETES SCREEN DIABETES SCREEN [facility] Start: 11-30-2024 End: 11-30-2024 Patient encounter procedure 11/30/2024 11:00 AM EDT Office Visit [facility] [address] [place] [address] Edenilson Nicholson DO [address] [place], [place] [address] follow up [facility] Comment on above: follow up Start: 11-04-2024 [facility] Start: 11-02-2024 Influenza vaccination [facility] Start: 10-19-2024 End: 10-19-2024 Patient encounter procedure 10/19/2024 12:20 PM EDT Office Visit [facility] [address] [place] [address] Maria Elena Amaya APRN.IS ARCHITECT [address] [place], [place] [address] 2 month follow up Family [facility] Comment on above: 2 month follow up Start: 10-08-2024 End: 10-08-2024 ambulatory 10/08/2024 12:15 PM EDT [facility] [address] [place] [address] Olman Paiz, PT [address] [place] [address] Dx: Radiculopathy, cervical region [M54.12] [facility] Comment on above: Dx: Radiculopathy, cervical region [M54. 12] Start: 09-22-2024 End: 09-22-2024 Patient encounter procedure 09/22/2024 1:30 PM EDT Office Visit Neurology [address] [place] [address] Samantha Jordan PA-C [address] [place] [address] TIA (transient ischemic attack) [G45.9]; Paresthesia [R20.2] Neurology Comment on above: TIA (transient ischemic attack) [G45.9]; Paresthesia [R20.2] Start: 08-31-2024 Influenza vaccination Influenza Vaccine (#[facility] Comment on above: Postponed from 11/03/2023 (Declined at t his time) Start: 08-14-2024 Patient discharge [facility] Start: 08-14-2024 Serum inorganic phosphate measurement [facility] Start: 08-14-2024 Thyroid stimulating hormone measurement [facility] Start: 08-13-2024 Following clinical pathway protocol [facility] Start: 08-13-2024 Aspiration precautions [facility] Start: 08-13-2024 Assessment of risk of venous thromboembolism [facility] Start: 08-13-2024 Cardiac monitoring [facility] Start: 08-13-2024 Catheterization of vein [facility] Start: 08-13-2024 Consultation [facility] Start: 08-13-2024 Continuous pulse oximetry [facility] Start: 08-13-2024 Elevation of head [facility] bed [facility] Start: 08-13-2024 Exercises [facility] Start: 08-13-2024 Incentive spirometry [facility] Start: 08-13-2024 Insertion of catheter into peripheral vein [facility] Start: 08-13-2024 Measuring intake and output [facility] Start: 08-13-2024 Notification of physician [facility] Start: 08-13-2024 Oxygen therapy [facility] Start: 08-13-2024 Patient referral to dietitian [facility] Start: 08-13-2024 Providing care according to standard [facility] Start: 08-13-2024 Provision of activity privileges [facility] Start: 08-13-2024 Referral to occupational therapist [facility] Start: 08-13-2024 Referral to service [facility] Start: 08-13-2024 Speech therapy assessment [facility] Start: 08-13-2024 Telemedicine consultation with patient [facility] Start: 08-13-2024 Tobacco use cessation education [facility] Start: 08-13-2024 End: 08-13-2024 [facility] Start: 08-13-2024 Vital signs measurements [facility] Start: 08-13-2024 MRI of brain without contrast Brain without Contrast [facility] Start: 08-13-2024 Verification routine [facility] Start: 08-13-2024 Admission procedure [facility] Start: 08-03-2024 End: 08-03-2024 ambulatory 08/03/2024 2:00 PM EDT OT/PT/Speech Visit [facility] [address] [place] [address] Valdo Ty, PT Chronic left-sided low back pain without sciatica [M54.50, G89.29] [facility] Comment on above: Chronic left-sided low back pain without sciatica [M54.50, G89.29] Start: 07-08-2024 End: 07-08-2024 Patient encounter procedure 07/08/2024 11:30 AM EDT Office Visit Pain Management [address] [address] Roger Romero MD [address] [facility] [place] [address] Acute left-sided low back pain without sciatica [M54.50] Pain Management Comment on above: Acute left-sided low back pain without s ciatica [M54.50] Start: 06-08-2024 End: 06-08-2024 Patient encounter procedure 06/08/2024 12:00 PM EDT Office Visit [facility] [place] [address] [place] [address] Edenilson Nicholson DO [address] [place] [address] 5 month follow up [facility] Comment on above: 5 month follow up Start: 06-07-2024 DIABETES SCREEN DIABETES SCREEN [facility] Start: 04-30-2024 End: 04-30-2024 Patient encounter procedure 04/30/2024 11:30 AM EST Appointment Radiology [address] [place] [address] Pancreatic Cyst Radiology Comment on above: Pancreatic Cyst Start: 04-30-2024 Subsequent hospital visit by physician 04/30/2024 11:30 AM EST Hospital Encounter Radiology [address] [place] [address] Radiology Start: 04-19-2024 DIABETES SCREEN DIABETES SCREEN [facility] Start: 04-06-2024 End: 04-06-2024 ambulatory 04/06/2024 11:00 AM EST OT/PT/Speech Visit [facility] [address] [place] [address] Kathryn Flores, PT Acute left-sided low back pain without sciatica [M54.50] [facility] Comment on above: Acute left-sided low back pain without s ciatica [M54.50] Start: 03-25-2024 End: 03-25-2024 Patient encounter procedure 03/25/2024 11:00 AM EST Office Visit [facility] [place] [address] [place] [address] Angeline Ray APRN.IS ARCHITECT [address] [place] [address] 03-23-24 [facility] left side abdominal pain [facility] Comment on above: 1-20-25 [facility] left side abdominal pa in Start: 03-04-2024 Medicare Advantage Annual Wellness Visit Medicare Advantage Annual Wellness Visit [facility] Start: 01-22-2024 Pneumococcal Vaccine: 65+ (1 - PCV) Pneumococcal Vaccine: 65+ (1 - PCV) [facility] Comment on above: Postponed from 02/27/1946 (Declined at t his time) Start: 01-22-2024 Pneumococcal Vaccine: 65+ (1 of 2 - PCV) Pneumococcal Vaccine: 65+ (1 of 2 - PCV) [facility] Comment on above: Postponed from 02/27/1946 (Declined at t his time) Start: 01-22-2024 RSV Vaccine (1 - 1-dose 60+ series) RSV Vaccine (1 - 1-dose 60+ series) [facility] Comment on above: Postponed from 2000 (Declined at t his time) Start: 01-22-2024 RSV Vaccine (1 - 1-dose 75+ series) RSV Vaccine (1 - 1-dose 75+ series) [facility] Comment on above: Postponed from 02/27/2015 (Declined at t his time) Start: 01-22-2024 Shingrix Vaccine (1 of 2) Shingrix Vaccine (1 of 2) [facility] Comment on above: Postponed from 11/03/2012 (Declined at t his time) Start: 01-22-2024 Shingrix Vaccine (2 of 3) Shingrix Vaccine (2 of 3) [facility] Comment on above: Postponed from 11/03/2012 (Declined at t his time) Start: 01-22-2024 End: 01-22-2024 Patient encounter procedure 01/22/2024 11:00 AM EST Office Visit [facility] [address] [place] [address] Edenilson Nicholson DO [address] [facility] [place] [address] 3 month follow up Family [facility] Comment on above: 3 month follow up Start: 01-09-2024 End: 01-09-2024 Patient encounter procedure 01/09/2024 10:00 AM EST Office Visit [facility] [address] [facility] [place] [address] Angeline Ray, ENGINE HEAD REPAIRER.IS ARCHITECT [address] [place] [address] possible uti and right heel pain [facility] [place] Comment on above: possible uti and right heel pain Start: 12-05-2023 End: 12-05-2023 Patient encounter procedure 12/05/2023 10:40 AM EDT Office Visit Family [facility] [place] [address] [place], [place] [id number] Kinga Carter, ENGINE HEAD REPAIRER.IS ARCHITECT [address] [place] [address] Follow-up Arthritis. Not getting any better. Family [facility] [place] Comment on above: Follow-up Arthritis. Not getting any bet ter. Start: 11-13-2023 End: 11-13-2023 Patient encounter procedure 11/13/2023 12:00 PM EDT Office Visit Gastroenterology [address] [facility] [place] [place] [address] [place] [address] [place] [address] Mendez, no referral available at time of scheduling. Spouse states PT referred for elevated blood levels. Gastroenterology Comment on above: Pt referred by Dr. Mendez, no referral available at time of scheduling. Spouse states PT referred for elevated blood levels. Start: 11-03-2023 Covid-19 Vaccine ( season) Covid-19 Vaccine () [facility] Start: 11-03-2023 Covid-19 Vaccine ( season) Covid-19 Vaccine () [facility] Start: 11-03-2023 Influenza vaccination [facility] Start: 10-22-2023 End: 10-22-2023 Patient encounter procedure 10/22/2023 12:00 PM EDT Office Visit [facility] [place] [address] [place], [place] [id number] Edenilson Nicholson DO [address] [facility] [place] [address] Follow up [facility] [place] Comment on above: Follow up Start: 09-23-2023 End: 09-23-2023 Patient encounter procedure 09/23/2023 11:00 AM EDT Office Visit [facility] [place] [address] [place] [address] Kandi Park APRN.IS ARCHITECT [address] [facility] [place] [address] Abdominal Pain [facility] [place] Comment on above: Abdominal Pain Start: 09-18-2023 End: 09-18-2023 Patient encounter procedure 09/18/2023 6:20 PM EDT Office Visit [facility] [place] [address] [place] [address] Edenilson Nicholson DO [address] [facility] [place] [address] Follow up [facility] [place] Comment on above: Follow up Start: 09-01-2023 Influenza vaccination Influenza Vaccine (#1) [facility] Comment on above: Postponed from 11/02/2022 (Declined at t his time) Start: 08-14-2023 End: 08-14-2023 Patient encounter procedure 08/14/2023 11:00 AM EDT Office Visit [facility] [place] [address] [place] [address] Angeline Ray APRN.IS ARCHITECT [address] [facility] [place] [address] Follow up abd pain [facility] [place] Comment on above: Follow up abd pain Start: 07-24-2023 End: 07-24-2023 Patient encounter procedure 07/24/2023 6:20 PM EDT Office Visit [facility] [place] [address] [place] [address] Edenilson Nicholson DO [address] [facility] [place] [address] Follow up [facility] [place] Comment on above: Follow up Start: 07-17-2023 End: 02-15-2024 Mri abdomen w/o & w/contrast material MRI PANC/ARETHA WO/W IVCON Radiology Routine Pancreas cyst Cystic mass of pancreas Abnormal MRI of abdomen Expected: 07/17/2023, Expires: 02/15/2024 [facility] Work Phone: Comment on above: Expected: 07/17/2023, Expires: 4 Start: 05-14-2023 End: 07-14-2023 TYPE AND SCREEN,30 DAY TYPE AND SCREEN,30 DAY Blood Bank Routine Vaginal vault prolapse Rectocele Cystocele, midline Urinary incontinence, urge Overactive bladder Rectal prolapse Preoperative examination Expected: 05/14/2023, Expires: 07/14/2023 [facility] Work Phone: Comment on above: Expected: 05/14/2023, Expires: Start: 04-24-2023 COVID-19 VACCINE (#1) COVID-19 VACCINE (#1) [facility] Comment on above: Postponed from 1940 (Declined at t his time) Postponed from 02/27 (Declined at this time) Start: 11-28-2022 End: 01-28-2023 Bacteria identified in Urine by Culture URINE CULTURE Microbiology Routine Recurrent UTI (urinary tract infection) Expected: 11/28/2022, Expires: 01/28/2023 [facility] Work Phone: Comment on above: Expected: 11/28/2022, Expires: 3 Start: 11-28-2022 End: 01-28-2023 Urinalysis complete panel - Urine URINALYSIS, WITH MICROSCOPIC Lab Routine Recurrent UTI (urinary tract infection) Expected: 11/28/2022, Expires: 01/28/2023 [facility] Work Phone: Comment on above: Expected: 11/28/2022, Expires: 3 Start: 11-26-2022 End: 01-26-2023 Basic metabolic 2000 panel - Serum or Plasma BASIC METABOLIC PNL Lab Routine Vaginal vault prolapse Rectocele Cystocele, midline Urinary incontinence, urge Overactive bladder Rectal prolapse Preoperative examination Expected: 11/26/2022, Expires: 01/26/2023 [facility] Work Phone: Comment on above: Expected: 11/26/2022, Expires: 3 Start: 11-26-2022 End: 01-26-2023 CBC panel - Blood by Automated count CBC Lab Routine Vaginal vault prolapse Rectocele Cystocele, midline Urinary incontinence, urge Overactive bladder Rectal prolapse Preoperative examination Expected: 11/26/2022, Expires: 01/26/2023 [facility] Work Phone: Comment on above: Expected: 11/26/2022, Expires: 3 Start: 11-02-2022 Covid-19 Vaccine ( season) Covid-19 Vaccine () [facility] Start: 11-02-2022 Influenza vaccination [facility] Start: 08-31-2022 Influenza vaccination INFLUENZA (#1) [facility] Comment on above: Postponed from 11/02/2021 (Declined at t his time) Start: 08-01-2022 End: 10-01-2022 25-hydroxyvitamin D3 [Mass/volume] in Serum or Plasma VITAMIN D 25 HYDROXY Lab Routine Short-term memory loss Word finding difficulty Expected: 08/01/2022, Expires: 10/01/2022 [facility] Work Phone: Comment on above: Expected: 08/01/2022, Expires: 3 Start: 08-01-2022 End: 10-01-2022 CBC W Auto Differential panel - Blood CBC + DIFF Lab Routine Short-term memory loss Word finding difficulty Expected: 08/01/2022, Expires: 10/01/2022 [facility] Work Phone: Comment on above: Expected: 08/01/2022, Expires: 3 Start: 08-01-2022 End: 10-01-2022 Cobalamin (Vitamin B12) [Mass/volume] in Serum or Plasma VITAMIN B12 BLOOD Lab Routine Short-term memory loss Word finding difficulty Expected: 08/01/2022, Expires: 10/01/2022 [facility] Work Phone: Comment on above: Expected: 08/01/2022, Expires: 3 Start: 08-01-2022 End: 10-01-2022 Comprehensive metabolic 2000 panel - Serum or Plasma COMP METABOLIC PANEL Lab Routine Short-term memory loss Word finding difficulty Expected: 08/01/2022, Expires: 10/01/2022 [facility] Work Phone: Comment on above: Expected: 08/01/2022, Expires: 3 Start: 08-01-2022 End: 10-01-2022 Thyrotropin [Units/volume] in Serum or Plasma TSH BLD Lab Routine Short-term memory loss Word finding difficulty Expected: 08/01/2022, Expires: 10/01/2022 [facility] Work Phone: Comment on above: Expected: 08/01/2022, Expires: 3 Start: 04-24-2022 End: 06-24-2022 Bacteria identified in Urine by Culture [facility] Work Phone: Comment on above: Expected: 04/24/2022, Expires: 3 Start: 04-10-2022 COVID-19 VACCINE (#1) COVID-19 VACCINE (#1) [facility] Comment on above: Postponed from 02/27/1945 (Declined at t his time) Postponed from 08/28 (Declined at this time) Start: 04-10-2022 COVID-19 VACCINE (1) COVID-19 VACCINE (1) [facility] Comment on above: Postponed from 1952 (Declined at t his time) Start: 11-02-2021 Influenza vaccination [facility] Start: 06-12-2021 End: 08-12-2021 Bacteria identified in Urine by Culture URINE CULTURE Microbiology Routine Microscopic hematuria Expected: 06/12/2021, Expires: 08/12/2021 [facility] Work Phone: Comment on above: Expected: 06/12/2021, Expires: 2 Start: 06-12-2021 End: 08-12-2021 Urinalysis complete panel - Urine URINALYSIS, WITH MICROSCOPIC Lab Routine Microscopic hematuria Expected: 06/12/2021, Expires: 08/12/2021 [facility] Work Phone: Comment on above: Expected: 06/12/2021, Expires: 2 Start: 02-27-2015 RSV Vaccine (1 - 1-dose 75+ series) RSV Vaccine (1 - 1-dose 75+ series) [facility] Start: 11-03-2012 SHINGRIX VACCINE (1 of 2) SHINGRIX VACCINE (1 of 2) [facility] Start: 11-03-2012 SHINGRIX VACCINE (2 of 3) SHINGRIX VACCINE (2 of 3) [facility] Start: 2000 RSV Vaccine (1 - 1-dose 60+ series) RSV Vaccine (1 - 1-dose 60+ series) [facility] Start: 02-27-1959 Pneumococcal Vaccine: 50+ (1 of 2 - PCV) Pneumococcal Vaccine: 50+ (1 of 2 - PCV) [facility] Start: 02-27-1946 Pneumococcal Vaccine: 65+ (1 - PCV) Pneumococcal Vaccine: 65+ (1 - PCV) [facility] Start: 02-27-1946 Pneumococcal Vaccine: 65+ (1 of 2 - PCV) Pneumococcal Vaccine: 65+ (1 of 2 - PCV) [facility] Start: 02-27-1946 PNEUMOCOCCAL: 65+ (1 - PCV) PNEUMOCOCCAL: 65+ (1 - PCV) [facility] Start: 02-27-1945 Covid-19 Vaccine (#1) Covid-19 Vaccine (#1) [facility] Start: 1940 COVID-19 VACCINE (#1) COVID-19 VACCINE (#1) [facility] End: 12-06-2022 [facility] ANORECTAL MANOMETRY [facility] ANORECTAL MANOMETRY Endoscopy Routine Rectocele Enterocele Rectal prolapse 1 Occurrences starting 12/06/2021 until 12/06/2022 [facility] Work Phone: Comment on above: 1 Occurrences starting 12/06/2021 until 12/06/2022 [facility] ANORECTAL MANOMETRY ADULT [place] ANORECTAL MANOMETRY Endoscopy Routine Rectocele Enterocele Rectal prolapse 04/16/2022 [facility] Work Phone: Alanine aminotransfe rase [Enzymatic activity/volume] in Serum or Plasma [facility] Albumin [Mass/volume ] in Serum or Plasma [facility] Alkaline phosphatase [Enzymatic activity/volume] in Serum or Plasma [facility] Anion gap in Serum o r Plasma [facility] Bacteria identified in Urine by Culture URINE CULTURE Microbiology Routine Flank pain 06/09/2021 3:07 PM EDT [facility] Work Phone: Bacteria identified in Urine by Culture URINE CULTURE Microbiology Routine Urinary frequency Ordered: 01/12/2022 [facility] Work Phone: Comment on above: Ordered: 01/12/2022 Bacteria identified in Urine by Culture URINE CULTURE Microbiology Routine Urinary frequency Ordered: 01/22/2022 [facility] Work Phone: Comment on above: Ordered: 01/22/2022 Bacteria identified in Urine by Culture URINE CULTURE Microbiology Routine Urinary frequency Ordered: 02/10/2022 [facility] Work Phone: Comment on above: Ordered: 02/10/2022 Bacteria identified in Urine by Culture URINE CULTURE Microbiology Routine Urinary frequency 11/13/2022 4:39 PM T [facility] Work Phone: Bacteria identified in Urine by Culture URINE CULTURE Microbiology Routine Urinary frequency 01/21/2023 9:44 AM [facility] Work Phone: Bacteria identified in Urine by Culture URINE CULTURE Microbiology Routine UTI symptoms 07/04/2023 2:08 PM EDT [facility] Work Phone: Bacteria identified in Urine by Culture URINE CULTURE Microbiology Routine Urinary frequency Ordered: 12/24/2023 [facility] Comment on above: Ordered: 12/24/2023 Bacteria identified in Urine by Culture URINE CULTURE Microbiology Routine Urination frequency Ordered: 01/03/2024 [facility] Work Phone: Comment on above: Ordered: 01/03/2024 Bacteria identified in Urine by Culture BACTERIAL CULTURE, URINE Microbiology Routine Urinary frequency Ordered: 04/26/2024 [facility] Work Phone: Comment on above: Ordered: 04/26/2024 Bacteria identified in Urine by Culture BACTERIAL CULTURE, URINE Microbiology Routine Urinary frequency 05/06/2024 10:56 AM EST [facility] Bacteria identified in Urine by Culture BACTERIAL CULTURE, URINE Microbiology Routine Urinary frequency Ordered: 08/04/2024 [facility] Work Phone: Comment on above: Ordered: 08/04/2024 Bilirubin, total measurement [facility] BUN/Creatinine ratio [facility] Calcium [Mass/volume ] in Serum or Plasma [facility] Carbon dioxide, tota l [Moles/volume] in Central venous blood [facility] Cardiac event recording [facility] Cholesterol [Mass/volume] in Serum or Plasma [facility] Cholesterol in HDL [Mass/volume] in Serum or Plasma [facility] COVID & INFLUENZA A/ B & RSV PCR, ROUTINE COVID & INFLUENZA A/B & RSV PCR, ROUTINE Microbiology Routine Productive cough Ordered: 04/15/2024 [facility] Work Phone: Comment on above: Ordered: 04/15/2024 Creatinine [Mass/vol ume] in Serum or Plasma [facility] End: 08-31-2023 CT BRAIN WO IVCON CT BRAIN WO IVCON Radiology Routine Short-term memory loss Word finding difficulty 1 Occurrences starting 08/01/2022 until 08/31/2023 [facility] Work Phone: Comment on above: 1 Occurrences starting 08/01/2022 until 08/31/2023 End: 12-14-2023 Ct thorax w/o contrast material CT CHEST WO IVCON Radiology Routine Chronic cough Rales 1 Occurrences starting 11/14/2022 until 12/14/2023 [facility] Work Phone: Comment on above: 1 Occurrences starting 11/14/2022 until 12/14/2023 End: 12-14-2023 DXA-AXIAL SKELETON DXA-AXIAL SKELETON Radiology Routine Osteopenia, senile 1 Occurrences starting 11/14/2022 until 12/14/2023 [facility] Work Phone: Comment on above: 1 Occurrences starting 11/14/2022 until 12/14/2023 End: 11-12-2024 EGD - THERAPEUTIC, EUS, OR TUBE INTERVENTIONS EGD - THERAPEUTIC, EUS, OR TUBE INTERVENTIONS Endoscopy Routine Pancreatic cyst 1 Occurrences starting 11/13/2023 until 11/12/2024 [facility] Work Phone: Comment on above: 1 Occurrences starting 11/13/2023 until 11/12/2024 Erythrocyte mean corpuscular volume determination [facility] Erythrocyte sedimentation rate SED RATE WESTERGREN Lab Routine Pain due to knee joint prosthesis, initial encounter (HCC) Status post total left knee replacement 01/11/2023 8:08 AM EST [facility] Work Phone: Glucose [Mass/volume ] in Serum or Plasma [facility] Helicobacter pylori Ag [Presence] in Stool by Immunoassay HELICOBACTER PYLORI ANTIGEN BY EIA, STOOL Microbiology Routine Abnormal findings in stool Ordered: 06/08/2024 [facility] Work Phone: Comment on above: Ordered: 06/08/2024 Hematocrit [Volume Fraction] of Blood [facility] Hemoglobin [Mass/vol ume] in Blood [facility] Leukocytes [#/volume ] in Blood [facility] Low density lipoprot ein cholesterol measurement [facility] Magnesium measurement [facility] Mean corpuscular hemoglobin concentration determination [facility] Mean corpuscular hemoglobin determination [facility] Measurement of renal function [facility] MR Biliary ducts and Pancreatic duct WO and W contrast IV MRI PANC/ARETHA WO/W IVCON Radiology Routine Pancreas cyst Cystic mass of pancreas Abnormal MRI of abdomen 05/22/2023 6:12 PM EDT [facility] Work Phone: MR Unspecified body region 3D post processing MRI 3D POST PROCESSING Radiology Routine Pancreas cyst Cystic mass of pancreas Abnormal MRI of abdomen 05/22/2023 6:14 PM EDT [facility] Work Phone: End: 02-15-2024 MRI 3D POST PROCESSING MRI 3D POST PROCESSING Radiology Routine Pancreas cyst Cystic mass of pancreas Abnormal MRI of abdomen 1 Occurrences starting 01/16/2023 until 02/15/2024 [facility] Work Phone: Comment on above: 1 Occurrences starting 01/16/2023 until 02/15/2024 Neutrophil count [facility] Neutrophil percent differential count [facility] Njx anes&/strd w/img tfrml edrl lmbr/sac 1 lvl INJ TRANSFORAMINAL EPID ANES/STER LS SINGL Procedures Routine Spinal stenosis of lumbar region, unspecified whether neurogenic claudication present Degeneration of intervertebral disc of lumbosacral region with discogenic back pain and lower extremity pain Ordered: 08/03/2024 [facility] Work Phone: Comment on above: Ordered: 08/03/2024 Ova and parasites identified in Unspecified specimen by Light microscopy OVA + PARA MICROSCOPIC Microbiology Routine Diarrhea, unspecified type 10/28/2021 8:10 AM EDT [facility] Work Phone: PANC ELASTASE, FECAL PANC ELASTA SE, FECAL Lab Routine Abnormal findings in stool Ordered: 06/08/2024 [facility] Comment on above: Ordered: 06/08/2024 Patient Education [facility] Work Phone: Patient referral [facility] Work Phone: Platelets [#/volume] in Blood [facility] Potassium measurement [facility] End: 01-05-2023 Radiologic exam colon single contrast study XR DEFECOGRAPHY Radiology Routine Rectocele Enterocele Rectal prolapse 1 Occurrences starting 12/06/2021 until 01/05/2023 [facility] Work Phone: Comment on above: 1 Occurrences starting 12/06/2021 until 01/05/2023 Red blood cell count [facility] Red cell distributio n width determination [facility] SARS-CoV-2 (COVID-19 ) RNA [Presence] in Respiratory specimen by PRABHA with probe detection COVID NAAT, UPPER RESPIRATORY, ROUTINE Microbiology Routine Acute cough Exposure to COVID-19 virus 10/28/2023 11:28 AM EDT [facility] Work Phone: End: 04-16-2023 Screening colonoscopy COLONOSCOPY SCREENING Endoscopy Routine Screening for colon cancer 1 Occurrences starting 04/16/2022 until 04/16/2023 [facility] Work Phone: Comment on above: 1 Occurrences starting 04/16/2022 until 04/16/2023 Serum chloride measurement [facility] Sodium measurement [facility] Total cholesterol:HD L ratio measurement [facility] Total protein measurement [facility] Triglycerides measurement [facility] UA DIP, URINE (POC) UA DIP, URIN E (POC) Lab Routine Urinary frequency Ordered: 07/20/2021 [facility] Work Phone: Comment on above: Ordered: 07/20/2021 UA DIP, URINE (POC) UA DIP, URIN E (POC) Lab Routine Urinary frequency Ordered: 04/24/2022 [facility] Work Phone: Comment on above: Ordered: 04/24/2022 UA DIP, URINE (POC) UA DIP, URIN E (POC) Lab Routine Urinary frequency Ordered: 04/20/2022 [facility] Work Phone: Comment on above: Ordered: 04/20/2022 UA DIP, URINE (POC) UA DIP, URIN E (POC) Lab Routine Other female genital prolapse Urinary frequency Ordered: 05/08/2022 [facility] Work Phone: Comment on above: Ordered: 05/08/2022 UA DIP, URINE (POC) UA DIP, URIN E (POC) Lab Routine Urinary frequency Ordered: 12/24/2023 [facility] Work Phone: Comment on above: Ordered: 12/24/2023 UA DIP, URINE (POC) UA DIP, URIN E (POC) Lab Routine Urinary frequency Ordered: 05/06/2024 [facility] Work Phone: Comment on above: Ordered: 05/06/2024 Urea nitrogen [Mass/volume] in Serum or Plasma [facility] URODYNAMICS I URODYNAMICS WHI Procedures Routine Urinary incontinence, urge Preoperative examination Ordered: 04/17/2022 [facility] Work Phone: Comment on above: Ordered: 04/17/2022 URODYNAMICS I URODYNAMICS I Procedures Routine Vaginal vault prolapse Rectocele Cystocele, midline Urinary incontinence, urge Overactive bladder Rectal prolapse Preoperative examination Ordered: 11/26/2022 [facility] Work Phone: Comment on above: Ordered: 11/26/2022 VLDL cholesterol measurement [facility] End: 12-24-2024 XR Ankle - right AP and Lateral and oblique XR ANKLE GENERAL 3V AP/LAT/OBL RIGHT Radiology Routine Pain in lateral portion of right ankle 1 Occurrences starting 11/25/2023 until 12/24/2024 [facility] Work Phone: Comment on above: 1 Occurrences starting 11/25/2023 until 12/24/2024 XR Ankle - right AP and Lateral and oblique XR ANKLE GENERAL 3V AP/LAT/OBL RIGHT Radiology Routine Pain in lateral portion of right ankle 11/25/2023 1:20 PM EDT [facility] End: 07-26-2024 XR Chest PA and Lateral XR CHEST 2V FRONTAL/LAT Radiology Routine Acute cough Persistent cough Decreased lung sounds 1 Occurrences starting 06/27/2023 until 07/26/2024 [facility] Work Phone: Comment on above: 1 Occurrences starting 06/27/2023 until 07/26/2024 XR Chest PA and Lateral XR CHEST 2V FRONTAL/LAT Radiology Routine Acute cough Persistent cough Decreased lung sounds 06/27/2023 3:19 PM EDT [facility] XR Chest PA and Lateral XR CHEST 2V FRONTAL/LAT Radiology STAT Acute cough Ordered: 04/26/2024 [facility] Comment on above: Ordered: 04/26/2024 End: 07-23-2022 XR KNEE POST OP 3V AP/LAT/MERCHANT BILATERAL XR KNEE POST OP 3V AP/LAT/MERCHANT BILATERAL Radiology Routine Pain in both knees, unspecified chronicity 1 Occurrences starting 06/23/2021 until 07/23/2022 [facility] Work Phone: Comment on above: 1 Occurrences starting 06/23/2021 until 07/23/2022 XR Lumbar spine 3 Views XR LUMBA R GENERAL 3V AP/LAT/L5-S1 Radiology Routine Chronic left-sided low back pain without sciatica 06/02/2024 12:31 PM EDT [facility] Work Phone: End: 07-02-2025 XR Lumbar spine 3 Views XR LUMBAR GENERAL 3V AP/LAT/L5-S1 Radiology Routine Chronic left-sided low back pain without sciatica 1 Occurrences starting 06/02/2024 until 07/02/2025 [facility] Work Phone: Comment on above: 1 Occurrences starting 06/02/2024 until 07/02/2025 XR Thoracic spine AP and Lateral and Swimmers XR THORACIC GENERAL 3V AP/LAT/SWIMMERS Radiology Routine Chronic left-sided low back pain without sciatica 06/02/2024 12:31 PM EDT [facility] End: 07-02-2025 XR Thoracic spine AP and Lateral and Swimmers XR THORACIC GENERAL 3V AP/LAT/SWIMMERS Radiology Routine Chronic left-sided low back pain without sciatica 1 Occurrences starting 06/02/2024 until 07/02/2025 [facility] Comment on above: 1 Occurrences starting 06/02/2024 until 07/02/2025 [facility] Immunizations Immunization Date Immunization Notes Care Provider Fa [facility] 11-23-2022 tetanus toxoid, reduced diphtheria toxoid, and acellular pertussis vaccine, adsorbed Nel Zayas MD Work Phone: [facility] 07-11-2020 tetanus toxoid, reduced diphtheria toxoid, and acellular pertussis vaccine, adsorbed Efra Stinson MD Work Phone: [facility] 02-03-2020 influenza, high-dose , quadrivalent vaccine (FLUZONE HIGH DOSE QUADRIVALENT) Efra Stinson MD Work Phone: [facility] Work Phone: 02-03-2020 influenza virus vaccine, unspecified formulation Johnie Aguirre APRN.CNP Work Phone: [facility] 05-08-2019 influenza, high dose seasonal, preservative-free Efra Stinson MD Work Phone: [facility] Work Phone: 09-08-2012 zoster vaccine, live Efra Card MD Work Phone: [facility] 04-04-2012 tetanus toxoid, reduced diphtheria toxoid, and acellular pertussis vaccine, adsorbed Efra Stinson MD Work Phone: [facility] Payers Date Payer Category Payer Self-pay [id number] 2022 Medicare (Managed Care) MMO [employer] [facility] [id number] 2022 Medicare [id number] 2021 Medicare [employer] MEDICARE A ETNA MEDICARE PPO [id number] 2021-Present [phone] [facility] [id number] [place] [address] PPO [id number] 2016 Medicare [id number] 2016 Private Health Insurance [id number] 2013 Unknown [id number] 2013 Unknown [id number] 1940 Unknown [id number] 2.16.840.1.759841.3.579.2 .627 Unknown [id number] 2.16.840.1.742626.3.579.2 .462 Unknown [id number] 2.16.840.1.986605.3.579.2 .462 Unknown [id number] 2.16.840.1.920882.3.579.2 .462 Unknown [id number] 2.16.840.1.097799.3.579.2 .462 Unknown [id number] 2.16.840.1.978221.3.579.2 .462 Unknown [id number] 2.16.840.1.143796.3.579.2 .462 Unknown [id number] 2.16.840.1.663457.3.579.2 .462 Unknown [id number] 2.16.840.1.153372.3.579.2 .462 Unknown [id number] 2.16.840.1.395329.3.579.2 .462 Unknown [id number] 2.0.1.075245.3.579.2 .462 Unknown [id number] 2.0.1.773790.3.579.2 .462 Unknown [id number] 2.0.1.874957.3.579.2 .462 Unknown [id number] 2.0.1.529437.3.579.2 .462 Unknown [id number] 2.0.1.473010.3.579.2 .462 Social History Date Type Detail Facility Start: 09-09-2010 End: 10-27-2021 Tobacco smoking status NHIS Never smoked tobacco [facility] Start: 06-07-2021 End: 11-11-2024 Alcohol intake Current non-drinker of alcohol (finding) [facility] Start: 1940 Sex Assigned At Not on file [facility] Start: 09-03-2020 End: 01-22-2022 Exposure to SARS-CoV-2 (event) Not sure [facility] Work Phone: Start: 09-07-2016 End: 09-07-2016 Tobacco smoking status MOIS Unknown if ever smoked [facility] Start: 1940 Sex Assigned At Female W [facility] Start: 09-09-2010 End: 10-27-2021 Tobacco use and exposure Smokeless tobacco non-user [facility] Work Phone: Start: 09-07-2016 None [facility] Start: 09-07-2016 Spouse/ Signif icant Other [facility] Start: 07-19-2022 End: 09-20-2022 History of Social function [facility] Start: 07-19-2022 End: 09-20-2022 Tobacco use panel [facility] Start: 02-03-2012 Adult Depression Screening Assessment 0 [facility] Tobacco smoking status No Smokin g Status Entered [facility] Medical Equipment Procedure Code Equipment Code Equipment Origin al Text Equipment Identifier Dates Cement Simplex P Bone Radiopaque Full Dose Sterile - [id number] Start: 06-03-2017 Cement Simplex P Bone Radiopaque Full Dose Sterile - [id number] Start: 03-28-2020 Triathlon X3 Tib ial Bearing - Cr Size 2 9mm [id number] Start: 03-28-2020 Component Triath niki 1 Femoral Cruciate Retain Cemented Knee Right - [id number] Start: 06-03-2017 Baseplate Triath niki 1 Tibial Primary Cement Knee - [id number] Start: 06-03-2017 Insert Triathlon 1 X3 9mm Tibial Condylar Stabilized Knee - [id number] Start: 06-03-2017 Component Triath niki 29mm Asymmetric X3 9mm Patellar Total Knee - [id number] Start: 06-03-2017 Component Triath niki 2 Femoral Cruciate Retain Cemented Knee Left - [id number] Start: 03-28-2020 Component Triath niki 32mm 10mm Patellar Asymmetric Knee - [id number] Start: 03-28-2020 Baseplate Triath niki 2 Tibial Primary Cement Knee - [id number] Start: 03-28-2020 Goals Date Patient Goal Desired Activity /State Functional Status Date Assessment Result Facility 08-14-2024 Functional status Ambulates [facility] Work Phone: 01-19-2023 Functional Status Independent [facility] 01-19-2023 Functional Status Ambulation in Room [facility] 03-29-2020 Are you deaf, or do you have serious difficulty hearing No 03/29/2020 3:17 PM Dania Kilpatrick RN No [facility] 03-29-2020 Are you blind, or do you have serious difficulty seeing, even when wearing glasses No 03/29/2020 3:17 PM Dania Kilpatrick, ROBERT No [facility] 03-29-2020 Do you have serious difficulty walking or climbing stairs No 03/29/2020 3:17 PM Dania Kilpatrick RN No [facility] 03-29-2020 Do you have difficul ty dressing or bathing No 03/29/2020 3:17 PM Dania Kilpatrick RN No [facility] 03-29-2020 Because of a physica l, mental, or emotional condition, do you have difficulty doing errands alone such as visiting a physician's office or shopping No 03/29/2020 3:17 PM Dania Kilpatrick RN No [facility] Mental Status Date Assessment Result Facility 08-14-2024 Cognitive function Voice/Name [facility] Work Phone: 08-13-2024 Cognitive function Voice/Name [facility] Work Phone: 01-19-2023 Mental Status Orientation Oriented x 4 [facility] 01-19-2023 Mental Status [facility] 03-29-2020 Because of a physica l, mental, or emotional condition, do you have serious difficulty concentrating, remembering, or making decisions No 03/29/2020 3:17 PM Dania Kilpatrick RN No [facility] Clinical Notes 06-04-2017 to 11-14-2024 Patient InstructionsAbigail Balderas APRN.[facility] - 11/14/2024 12:03 PM Jillian Romero RT(R) - 11/14/2024 11:30 AM Angeline Choi APRN.[facility] 11/11/2024 6:05 PM EDTPatient Instructions Note Date & Type Note Facility 11-14-2024 Instructions Abigail Balderas APRN.[facility] - 11/14/2024 12:07 PM EDT 1. Acute cough (R05.1) 2. Acute bronchitis, unspecified organism (J20.9) - Acute onset of cough and chest congestion with mild sputum production; no fever, chest pain, or dyspnea; wheezing noted on exam. - Chest X-ray performed; no evidence of pneumonia. - Start short course of steroid therapy. - Offered COVID test; patient declined. 3. Contusion of left upper extremity, initial encounter (S40.022A) - Bruising on left arm, non-painful, likely related to recent colonoscopy. - Provided education on typical progression of bruising due to gravity. - Chest x-ray was completed and is normal, with no signs of pneumonia. - Begin the short course of oral steroids prescribed for your bronchitis; take them exactly as directed. - The bruise on your arm is a normal post-procedure finding; it may move downward and fade over time without any treatment. documented in this encounter [facility] 11-14-2024 History of Presen t illness Narrative [facility] O is a 84 year old female. Patient presents with: Chest Congestion: cough x 1 day HPI The patient is an 84-year-old female presenting with acute onset cough, chest congestion, and bruising on the arm. Cough and Chest Congestion: - Onset yesterday. - Reports a heavy feeling in the chest. - Mild productive cough; denies chest pain, dyspnea, rhinorrhea, or pharyngitis. - Denies taking any medications for symptoms. - Denies fever. Bruising: - Noticed bruising on the arm after colonoscopy done 3 weeks ago, with progression from redness to ecchymosis. - Bruising has moved distally on the arm. - Denies pain. Review of Systems Constitutional: (-) fever Ears/Nose/Mouth/Throat: (-) nasal congestion, (-) rhinorrhea, (-) sore throat Cardiovascular: (-) chest pain Respiratory: (+) cough, (+) sputum production, (+) chest congestion, (+) chest heaviness, (-) shortness of breath Musculoskeletal: (-) arm pain Skin: (+) arm bruising Objective BP 114/60 Pulse 66 Temp 36.8 C (98.2 F) Resp 16 Wt 54.6 kg (120 lb 5.9 oz) SpO2 97% BMI 25.16 kg/m PAST MEDICAL HISTORY Diagnosis Date Abdominal [...] 1 tablet by mouth daily at bedtime. [START ON 02/10/2025] donepezil (ARICEPT) 10 mg tablet Take 1 tablet by mouth daily at bedtime. Patient should start on February 10, 2025. hydrocortisone (ANUSOL-HC) 25 mg suppository 1 suppository by RECTAL route two times a day as needed (hemorrhoids/rectal pain). atorvastatin (LIPITOR) 40 mg tablet Take 1 tablet by mouth once daily. FLUoxetine (PROZAC) 10 mg capsule Take 1 capsule by mouth once daily. Aspirin 81 mg tab Take 81 mg by mouth. losartan (COZAAR) 25 mg tablet Take 1 tablet by mouth once daily. cyclobenzaprine (FLEXERIL) 5 mg tablet Take 1 tablet by mouth three times a day as needed. ketoconazole (NIZORAL) 2 % cream Apply to affected area two times a day. methotrexate 2.5 mg tablet TAKE 5 TABLET(S) ORAL ONCE A WEEK START 4 TABS ONCE A WEEK FOR 2 WEEKS fluorometholone (FML LIQUID FILM) 0.1 % ophthalmic suspension Use 1 Drop in both eyes once daily. FOLIC ACID ORAL Take by mouth. predniSONE (DELTASONE) 20 mg tablet Take 2 tablets by mouth once daily for 4 days. benzonatate (TESSALON PERLE) 100 mg capsule Take 1 capsule by mouth three times a day as needed. FAMILY HISTORY Problem Relation Age of Onset Heart Mother CHF Cancer Father prostate Psychiatry Father Cancer Brother No Known Problems Daughter No Known Problems Daughter No Known Problems Daughter Breast Cancer Maternal Aunt Colon Cancer No Family History SOCIAL HISTORY[1] Physical Exam Vitals and nursing note reviewed. Constitutional: General: She is not in acute distress. Appearance: Normal appearance. She is normal weight. She is not ill-appearing. Cardiovascular: Rate and Rhythm: Normal rate and regular rhythm. Heart sounds: Normal heart sounds. Pulmonary: Effort: Pulmonary effort is normal. No respiratory distress. Breath sounds: Normal breath sounds. No wheezing or rales. Skin: General: Skin is warm and dry. Capillary Refill: Capillary refill takes less than 2 seconds. Findings: Bruising present. No erythema or rash. Neurological: Mental Status: She is alert. { 1. Acute cough (R05.1) 2. Acute bronchitis, unspecified organism (J20.9) - Acute onset of cough and chest congestion with mild sputum production; no fever, chest pain, or dyspnea; wheezing noted on exam. - Chest X-ray performed; no evidence of pneumonia. - Start short course of steroid therapy. - Offered COVID test; patient declined. 3. Contusion of left upper extremity, initial encounter (S40.022A) - Bruising on left arm, non-painful, likely related to recent colonoscopy. - Provided education on typical progression of bruising due to gravity. - Follow-up with your PCP in 3-5 days if symptoms have not improved or sooner if symptoms worsen - Discussed red flags and need for immediate medical evaluation if any occur. - Discussed supportive care treatment with fluids, rest and analgesia. - Discussed expected course of illness Abigail Balderas APRN.IS ARCHITECT and Recording using Bright[employer] software for draft documentation of the visit was discussed with the patient/authorized sales representative printing supplies; all questions welcomed and answered. Patient/authorized sales representative printing supplies agreed to proceed History and Record Review Clinical information obtained from an independent historian. History obtained from or confirmed by: spouse. Management I performed an independent interpretation of the following:imaging Imaging: My interpretation is see chart Disposition The patient was discharged. Procedures [1] Social History Tobacco Use Smoking status: Never Smokeless tobacco: Never Vaping Use Vaping status: Never Used Substance Use Topics Alcohol use: No Drug use: No documented in this encounter [facility] 11-14-2024 History of Presen t illness Narrative Radiology Service Progress Note PATIENT NAME: Anaya De La O DATE OF SERVICE: November 14, 2024 TIME: 11:28 AM PATIENT IDENTITY VERIFICATION COMPLETED USING TWO [...] PATIENT PRESENTS WITH AN IMPLANTABLE OR ATTACHED TUBE CUTTER: No RADIOLOGY DEPARTMENT: General X-ray: Exam(s) Completed: Chest X-Ray PERIPHERAL IV DATA: Not applicable SIGNED BY: RT Ramu(R) November 14, 2024 11:28 AM documented in this encounter [facility] 11-11-2024 History of Presen t illness Narrative 11/11/2024 Recording using BrightEdge software for draft documentation of the visit was discussed with the patient/authorized sales representative printing supplies; all questions welcomed and answered. Patient/authorized sales representative printing supplies agreed to proceed HPI: The patient is an 84-year-old female presenting for evaluation of left-sided back pain and left arm ecchymosis. Left Arm Bruising: - Anaya De La O noticed soreness in the left arm the day after a colonoscopy on 11/03. - Redness observed on the arm on Saturday evening, followed by bruising the next day. - She was seen at [facility] ER for this and dx with contusion. - Bruising has gradually improved. Left-Sided Back Pain: - Severe left-sided back pain began the day after the colonoscopy. - Pain was so intense that it required assistance to get into the car. - Pain has been recurrent since winter, often triggered by activities such as bending over or picking up sticks. - Previous MRI of the spine showed some stenosis. - Anaya has tried physical therapy with no significant improvement. - Pain gradually improves but has not completely resolved. PAST MEDICAL HISTORY Diagnosis Date Abdominal pain, [...] Sig hydrocortisone (ANUSOL-HC) 25 mg suppository 1 suppository by RECTAL route two times a day as needed (hemorrhoids/rectal pain). atorvastatin (LIPITOR) 40 mg tablet Take 1 tablet by mouth once daily. FLUoxetine (PROZAC) 10 mg capsule Take 1 capsule by mouth once daily. Aspirin 81 mg tab Take 81 mg by mouth. losartan (COZAAR) 25 mg tablet Take 1 tablet by mouth once daily. cyclobenzaprine (FLEXERIL) 5 mg tablet Take 1 tablet by mouth three times a day as needed. ketoconazole (NIZORAL) 2 % cream Apply to affected area two times a day. methotrexate 2.5 mg tablet TAKE 5 TABLET(S) ORAL ONCE A WEEK START 4 TABS ONCE A WEEK FOR 2 WEEKS fluorometholone (FML LIQUID FILM) 0.1 % ophthalmic suspension Use 1 Drop in both eyes once daily. FOLIC ACID ORAL Take by mouth. No current facility-administered medications on file prior to visit. Review of Systems: Musculoskeletal: (+) left-sided back pain, (+) muscle spasm left back, (+) left arm pain Skin: (+) left arm ecchymosis Neurological: (+) arm tingling Physical Exam: BP 130/60 (BP Site: Left Arm, BP Position: Sitting, BP Cuff Size: Regular Adult) Pulse (!) 48 Wt 53.5 kg (118 lb) SpO2 99% BMI 24.66 kg/m GENERAL: NAD, alert and oriented SKIN: Unremarkable, no rash or skin lesions. HEAD: Normocephalic LUNGS: Clear to auscultation bilaterally, no wheezes/rhonchi/rales. HEART: Regular rate and rhythm, no murmurs. No ectopy. EXTREMITIES: Normal, no deformities, no skin discoloration, no edema. NEURO: Awake, alert and oriented x3, cranial nerves II-XII grossly intact, normal gait, no involuntary motions ABDOMEN: BS present x4, no pain with palpation PSYCHIATRIC: pleasant, cooperative Diagnostics Reviewed: Labs: (3rd) - Blood work: No abnormalities reported - Urinalysis: No abnormalities reported Tests: (2nd) Colonoscopy: No results discussed (October 13) Personnel Counselor: No abnormalities found Imaging: MRI of the spine: No significant abnormalities reported, possible nerve impingement Assessment/Plan: 1. Arm bruise, left, sequela (S40.022S) - Bruising on left arm noted after colonoscopy; likely due to positioning during procedure. - Educated that bruising is common with age due to thinner skin and will gradually resolve; advised use of ice and heat as needed. 2. Chronic left-sided low back pain without sciatica (M54.50) 3. Degeneration of intervertebral disc of lumbar region, unspecified whether pain present (M51.369) 4. DDD (degenerative disc disease), thoracic (M51.34) 5. Muscle spasm (M62.838) 6. Muscle spasm of back (M62.830) 7. Spinal stenosis of lumbar region, unspecified whether neurogenic claudication present (M48.061) - Chronic left-sided back pain with recurrent muscle spasms, likely exacerbated by physical activity and recent colonoscopy positioning. - Previous MRI of the spine showed degenerative changes and stenosis. - Advised use of moist heat for muscle spasms. - Refer to Dr. Romero for evaluation and possible steroid injection. 8. Dementia without behavioral disturbance (HCC) (F03.90) - Continue donepezil as prescribed; sent additional prescription to [facility]. The patient indicates understanding of these issues and agrees with the plan. Red flag symptoms reviewed as needed. Follow up: Angeline Ray APRN.IS ARCHITECT documented in this encounter [facility] 11-11-2024 Instructions Angeline Ray APRN.[facility] - 11/11/2024 10:29 AM EDT Schedule with Dr. Romero for the back injection that he was recommending. Ice and/or heat to your bruise on your arm. Moist heat to your side when it is bothering you. documented in this encounter [facility] 11-06-2024 Telephone encount er Note The patient has been identified by name and date of : Yes Caregiver verified no other encounters exist for this prescription request: Yes Caregiver confirmed with patient/requestor that no other refills are due, in the near future, with this provider at this time: Yes The last office visit in the department: 08/19/2024 Does the patient have a future office visit with this provider/department: Yes 11/30/2024 Requested Prescriptions Pending Prescriptions Disp Refills donepezil (ARICEPT) 10 mg tablet 90 tablet 1 Sig: Take 1 tablet by mouth daily at bedtime. Cristhian Faulkner RN November 06, 2024 2:50 PM [facility] 11-06-2024 Miscellaneous Notes Formattin g of this note is different from the original. The patient has been identified by name and date of : Yes Caregiver verified no other encounters exist for this prescription request: Yes Caregiver confirmed with patient/requestor that no other refills are due, in the near future, with this provider at this time: Yes The last office visit in the department: 08/19/2024 Does the patient have a future office visit with this provider/department: Yes 11/30/2024 Requested Prescriptions Pending Prescriptions Disp Refills donepezil (ARICEPT) 10 mg tablet 90 tablet 1 Sig: Take 1 tablet by mouth daily at bedtime. Critshian Faulkner RN November 06, 2024 2:50 PM documented in this encounter [facility] 11-05-2024 Telephone encount er Note Agree with below. Thank you, Kandi Park APRN.IS ARCHITECT [facility] 11-05-2024 Miscellaneous Notes Formattin g of this note might be different from the original. Agree with below. Thank you, Kandi Park APRN.IS ARCHITECT Reason for Conversation left side weakness Disposition : Proceed to ER/Call 911. Pt has with her to assist her. Reason for Disposition [1] Weakness (i.e., paralysis, loss of muscle strength) of the face, arm / hand, or leg / foot on one side of the body AND [2] sudden onset AND [3] present now (Exception: Mcnally's palsy suspected [weakness on one side of the face, over hours to days].) Pt has history of TIA, along with cervical radiculopathy and left side paresthesia. Pt on aspirin. Due to history of TIA and current symptoms, cannot exclude TIA or cerebrovascular emergency or other immediate concern. ER advised. 1. SYMPTOM: Patient experiencing weakness and numbness and tingling in her left arm into her left hand, as well as radiating into her left back. Some neck stiffness as well. Also urine frequency. 2. ONSET: Began last night. 3. LAST NORMAL: yesterday. 4. PATTERN: constant 5. CARDIAC SYMPTOMS: Denies chest pain, difficulty breathing, or palpitations 6. NEUROLOGIC SYMPTOMS: Denies headache, dizziness, vision loss, double vision, changes in speech, or unsteadiness on her feet. 7. OTHER SYMPTOMS:as above 8. : no No Additional Information on file. Protocols Used Neurologic [id number] documented in this encounter [facility] 11-04-2024 Discharge summary [facility] 11-04-2024 History of Presen t illness Narrative Patient came in with complaints of severe left-sided abdominal and back pain. Patient says its about an 8. Patient is unable to even sit down. Patient is holding her abdomen and feeling weak on the left side. Patient had a colonoscopy yesterday. Patient said the pain started shortly after the procedure. At this time patient is being referred to the emergency room for full evaluation. wants to take her they do not want a squad called at this time. Helped patient out to car for to take her to the ER. Both were agreeable to care plan documented in this encounter [facility] 11-04-2024 Telephone encount er Note Reason for Conversation left side weakness Disposition : Proceed to ER/Call 911. Pt has with her to assist her. Reason for Disposition [1] Weakness (i.e., paralysis, loss of muscle strength) of the face, arm / hand, or leg / foot on one side of the body AND [2] sudden onset AND [3] present now (Exception: Mcnally's palsy suspected [weakness on one side of the face, over hours to days].) Pt has history of TIA, along with cervical radiculopathy and left side paresthesia. Pt on aspirin. Due to history of TIA and current symptoms, cannot exclude TIA or cerebrovascular emergency or other immediate concern. ER advised. 1. SYMPTOM: Patient experiencing weakness and numbness and tingling in her left arm into her left hand, as well as radiating into her left back. Some neck stiffness as well. Also urine frequency. 2. ONSET: Began last night. 3. LAST NORMAL: yesterday. 4. PATTERN: constant 5. CARDIAC SYMPTOMS: Denies chest pain, difficulty breathing, or palpitations 6. NEUROLOGIC SYMPTOMS: Denies headache, dizziness, vision loss, double vision, changes in speech, or unsteadiness on her feet. 7. OTHER SYMPTOMS:as above 8. : no No Additional Information on file. Protocols Used Neurologic [id number] [facility] 11-04-2024 Discharge summary Note Date/Time November 04, 2024 5:57pm [facility] Medical Records Department [address] [place] [address] Emergency Department Summary 11/04/24 MR#: [id number] Acct: [id number] Name: ANAYA DE LA O Rep #:[id number] : 1940 84 From: Kai Macedo MD PCP: Dr. Edenilson Nicholson, DO Status:RE G ER Location: ED HPI History of Present Illness Chief Complaint: Flank Pain Detail of Chief Complaint: Abrupt onset of left flank/left low back pain Informant: patient Onset/Context/Timing Onset: Today Context: Sudden Onset Timing: Continuous and Waxes and wanes Quality: Pain Location: Left flank/paralumbar region Current Severity: Mild Maximum Severity: Severe Worsened by: Nothing per patient Relieved by: Nothing Associated Symptoms Associated Symptoms: Frequency Narrative Narrative: Patient is an 84-year-old woman. She presents with left flank/left paralumbar pain that started abruptly. There is a positional component. There is also pain that causes her significant discomfort when she is just lying still. She denies radiation of the pain anteriorly. She does report increased frequency from her baseline. She denies dysuria or hematuria. She has no history of renal or ureterolithiasis. She had a colonoscopy yesterday. The pain is not abdominal. She is not having diarrhea. She has not done any lifting, pushing or pulling the last 2 days. She reports nausea or vomiting with most analgesic meds. There is also unknown to hydrocodone. Prior similar symptoms: No Recent Illness/Hospitalization: Yes (Colonoscopy yesterday at [facility]) [facility] Medical History DDD (degenerative disc disease) Psoriatic arthritis Home Medications ?Medication ?Instructions ?Recorded ?Last Taken ?Type ascorbic acid (vitamin C) 500 mg 500 mg PO DAILY@0800 SUPPLEMENT 09/07/16 08/12/24 History tablet (Vitamin C) cholecalciferol (vitamin D3) 125 5,000 unit PO DAILY [facility] 09/07/16 09/06/16 History mcg (5,000 unit) capsule coenzyme Q10 100 mg capsule (Co 100 mg PO DAILY SUPPLE MENT 09/07/16 08/12/24 H istory Q-10) folic acid 1 mg tablet 2 mg PO DAILY SUPPLEMENT 09/1708/12/24 History glutamine 500 mg capsule 500 mg PO DAILY SUPPLEMENT 0 09/07/16 Unknown History (L-Glutamine) lutein 20 mg capsule 20 mg PO DAILY SUPPLEMENT 08/12/24 History methotrexate sodium 2.5 mg tablet 12.5 mg PO LORD [facility]HTRI TIS 09/07/16 08/08/24 History red yeast rice 600 mg capsule 600 mg PO BID SUPPLEMENT 09/07/16 08/12/24 History cyclobenzaprine 10 mg tablet 10 mg PO TID PRN PRN Back 09/11/16 Unknown Rx pain/muscle spasms #10 tabs amitriptyline 10 mg tablet 10 mg PO QHS mood 08/13/24 Unknown History donepezil 10 mg tablet 10 mg PO QHS memory 08/13/24 Unknown History fluorometholone 0.1 % eye 1 drp ophthalmic (eye) QODAY 08/13/24 Unknown History drops,suspension fluoxetine 10 mg capsule 10 mg PO DAILY depression Unknown History losartan 25 mg tablet 25 mg PO DAILY blood pressur e 08/13/24 Unknown History aspirin 81 mg tablet 81 mg PO DAILY #30 tabs 08/02 05/26 Unknown Rx atorvastatin 40 mg tablet 40 mg PO QHS #30 tabs Unknown Rx hydrocodone-acetaminophen 5-325mg 1 tab PO Q6H PRN PRN Pain 3 days 11/04/24 Unkn own Rx 5mg-325mg #10 TABLETS Allergy/AdvReac Type Severity Reaction Status Date / Time Penicillins Allergy Unknown Verified 11/04/24 16:20 meperidine HCl (From Demerol) AdvReac Intermediate Vomiting Verified 11/04/24 16:20 sertraline HCl (From Zoloft) AdvReac Intermediate Other Verified 11/04/24 16:20 acetaminophen (From AdvReac Mild Vomiting Verified 11/04/24 16:20 Darvocet-N 100) caffeine AdvReac Mild Other Verified 11/04/24 16:20 codeine AdvReac Mild Vomiting Verified 11/04/24 16:20 ephedrine AdvReac Mild Other Verified 11/04/24 16:20 propoxyphene napsylate (From AdvReac Mild Vomiting Verified 11/04/24 16:20 Darvocet-N 100) tramadol AdvReac Mild Vomiting Verified 11/04/24 16:20 ampicillin AdvReac Unknown Unknown Verified 11/04/24 16:20 griseofulvin AdvReac Unknown Unknown Verified 11/04/24 16:20 guaifenesin (From Entex [place]) AdvReac Unknown Unknown Verified 11/04/24 16:20 hydrocodone bitartrate (From AdvReac Unknown Unknown Verified 11/04/24 16:20 Vicodin) phenylephrine HCl (From AdvReac Unknown Unknown Verified 11/04/24 16:20 Entex LA) phenylpropanolamine HCl AdvReac Unknown Unknown Verified 11/04/24 16:20 (From Entex [place]) Sulfa (Sulfonamide AdvReac Unknown Unknown Verified 11/04/24 16:20 Antibiotics) Family History Father Cancer Surgical History History of bilateral knee arthroplasty History of carpal tunnel release H/O: hysterectomy Social History Smoking Status: Never smoker ROS ROS ED Constitutional Constitutional ED: Denies chills, fever(s), subjective or sweats Eyes Eyes: Denies blurry vision or change in vision Cardiovascular Cardiovascular: Denies chest pain or palpitations Respiratory/Chest Respiratory/Chest: Denies cough, dyspnea or dyspnea on exertion Gastrointestinal Gastrointestinal: Reports nausea; Denies abdominal pain, diarrhea, melena or vomiting Genitourinary Genitourinary ED: Reports urinary frequency; Denies dysuria or hematuria Musculoskeletal Musculoskeletal: Reports back pain Integumentary Denies rash Neurologic Neurologic: Denies paresthesias or weakness EXAM Physical Exam Const Vital Signs: 11/04/24 16:20 Temperature 98.4 F Temperature Source Oral Pulse Rate 66 Respiratory Rate 16 Blood Pressure 136/63 H Blood Pressure Mean 87 Pulse Ox 98 Oxygen Delivery Method Room Air Positive well nourished and well developed Constitutional Narrative: Time patient begins to grimace. Her vital signs reveal slight elevation of blood pressure. General Appearance ED: well developed; Negative for cyanotic, diaphoretic or pallor HEENT Reports moist mucous membranes HEENT Narrative: Head is atraumatic normocephalic. Ears normal. Patient wears glasses. Eyes PERRL and EOMs intact bilaterally General Eye ED: Negative for pale conjunctiva or scleral icterus Resp normal respiratory effort and clear to auscultation bilaterally Cardio regular rate, regular rhythm, S1 normal heart sound, S2 normal heart sound and no murmurs GI normal to inspection, nondistended, normoactive bowel sounds, non-tender, non-distended and no masses; Negative for hepatosplenomegaly Back/Spine no CVA tenderness Back/Spine Narrative: Left lower back pain near the posterior superior iliac spine on the left. Straight leg test is negative right and left. Strength is 5/5 lower extremity i.e. EHL, plantar dorsiflexion of the foot. Extremity normal to inspection General Extremety ED: Negative for edema or tenderness General Extremity: Negative for edema Neuro oriented x3 and CN's II-XII intact bilaterally Sensorium / Orientation: alert Psych mental status grossly normal Skin no rashes or lesions noted and no wounds General Skin Exam: Negative for jaundice or pallor MDM MDM MDM Narrative Medical decision making narrative: Differential diagnosis musculoskeletal and urologic. Urologic would include infection and ureterolithiasis. Will obtain UA. If there is blood with no evidence of pyuria or bacteria will obtain CT. Will obtain CBC to assess white count differential and BMP to assess renal function in the event that she needs antibiotics and a dose adjustment as needed especially since she is 84 years of age. Patient was seen August 2024 for TIA. Prior admission was September 2016. She was midin 2016 for acute on chronic back pain. She has history of degenerative disc disease, osteopenia and psoriatic arthritis. History & Record Review Additional record(s) reviewed:: Prior outpatient record and Prior labs Lab Data Attestation: I reviewed the patient's lab results. Lab results narrative: CBC is unremarkable. Basic metabolic panel is unremarkable. Glucose is slightly elevated 127 with normal CO2 anion gap. Urinalysis is normal. Labs: Laboratory Results - last 24 hr 11/04/24 11/04/24 16:45 16:55 WBC 7.9 RBC 4.06 L Hgb 12.4 Hct 37.7 MCV 92.9 MCH 30.5 MCHC 32.9 RDW Std Deviation 49.1 H RDW Coeff of Kate 14.6 Plt Count 193 MPV 10.1 Immature Gran % (Auto) 0.400 Neut % (Auto) 67.2 Lymph % (Auto) 18.6 L [place] % (Auto) 11.9 H Eos % (Auto) 1.5 Baso % (Auto) 0.4 Absolute Neuts (auto) 5.3 Absolute Lymphs (auto) 1.46 Nucleated RBC % 0 Sodium 136 Potassium 3.9 Chloride 101 Carbon Dioxide 23.5 Anion Gap 11 BUN 6 Creatinine 0.62 L Estim Creat Clear Calc 37.60 L Est GFR (MDRD) Non-Af 88 BUN/Creatinine Ratio 9.8 L Glucose 127 H Calcium 8.9 Urine Color Straw Urine Clarity Clear Urine pH 6.5 Ur Specific Whitney 1.010 Urine Protein 15 H Urine Glucose (UA) Normal Urine Ketones Negative Urine Occult Blood 10 H Urine Nitrite Negative Urine Bilirubin Negative Urine Urobilinogen Normal Ur Leukocyte Esterase Negative Urine RBC 0-5 SEEN Urine WBC 0-5 SEEN Ur Squamous Epith Cells 0-5 SEEN Urine Bacteria 0 SEEN Urine Mucus 0 SEEN Treatment and Re-Evaluation :: Will treat for [place] low back pain. There is no evidence of infection and history is not consistent with obstructing ureteral stone. Nurse informed everytime she sits up she grimaces. Discharge Plan Triage Chief Complaint: Flank Pain ED Provider: Kai Macedo Dx/Rx/DC Orders Clinical Impression: Acute lumbar myofascial strain, Osteopenia, History of TIAs, Elevated blood-pressure reading without diagnosis of hypertension, Frequency of micturition Instructions: ED Back Sprain/Strain Prescriptions: New hydrocodone-acetaminophen 5-325 mg tablet 1 tab PO Q6H PRN PRN (Reason: Pain) 3 Days Qty: 10 0RF No Action L-Glutamine 500 MG capsule 500 mg PO DAILY ascorbic acid (vitamin C) [Vitamin C] 500 MG tablet 500 mg PO DAILY@0800 cholecalciferol (vitamin D3) 5,000 UNIT capsule 5,000 unit PO DAILY coenzyme Q10 [Co Q-10] 100 MG capsule 100 mg PO DAILY lutein 20 MG capsule 20 mg PO DAILY red yeast rice 600 MG capsule 600 mg PO BID methotrexate sodium 2.5 MG tablet 12.5 mg PO LORD Patient Comments: on sundays. folic acid 1 MG tablet 2 mg PO DAILY cyclobenzaprine 10 MG tablet 10 mg PO TID PRN PRN (Reason: Back pain/muscle spasms) Qty: 10 0RF donepezil 10 mg tablet 10 mg PO QHS amitriptyline 10 mg tablet 10 mg PO QHS fluorometholone 0.1 % drops,suspension 1 drp ophthalmic (eye) QODAY losartan 25 mg tablet 25 mg PO DAILY fluoxetine 10 mg capsule 10 mg PO DAILY atorvastatin 40 mg Tablet 40 mg PO QHS Qty: 30 0RF aspirin 81 mg tablet 81 mg PO DAILY Qty: 30 0RF Rx Instructions: [id number]. No prescription required Primary Care Provider: Edenilson Nicholson Referrals: Edenilson Nicholson DO [Primary Care Provider] - Activity Restrictions/Additional Instructions: Apply ice to your left lower back 6-8 times a day for the next 3 to 5 days. Avoid lifting, pulling or pushing anything or working in the garden hunched over Print Language: Danish Disposition Disposition: Home, Self Care What to do if you have Problems For any increased pain, shortness of breath, bleeding, nausea or vomiting, chestpain, or any unexpected problems, contact your Primary Care Provider. Call [facility] ([phone]) or report to the closest Emergency Room. Call 911 if necessary. 11/04/24 1153 <Electronically signed by Kai Macedo MD> Cosigner Signature (if applicable): CC: Dr. Edenilson Nicholson, DO ~ Signed [facility] Work Phone: 1(193) 992-429909-03-2025 Hospital Discharge instructionsAdditional Instructions Apply ice to your left lower back 6-8 times a day for the next 3 to 5 days. Avoid lifting, pulling or pushing anything or working in the garden hunched over [facility] Work Phone: 1(710) 602-781709-01-2025 Telephone encounter Note* Telephone Encounter - Kathryn Zhou RN - 11/02/2024 12:48 PM EDT Reason for call: Patient calling with diet question for colonoscopy scheduled tomorrow. Patient reports she ate 1 raspberry and forgot she was not to eat seeds. Patient denies any new or worsening symptoms of which aprovider is not aware:Yes. Outcome: Nurse reviewed chart and unable to see colonoscopy scheduled asked patient if she knew thename of the provider of if it was listed on her paperwork. Patient reported that the procedure is being completed by [facility] and found a phone number for that office on her paperwork. Patient advised to call their office as they are not a [facility] provider. Patient verbalized understanding. [facility]09-01-2025 Miscellaneous Notes* Telephone Encounter - Kathryn Zhou RN - 11/02/2024 12:48 PM EDT Reason for call: Patient calling with diet question for colonoscopy scheduled tomorrow. Patient reports she ate 1 raspberry and forgot she was not to eat seeds. Patient denies any new or worsening symptoms of which aprovider is not aware:Yes. Outcome: Nurse reviewed chart and unable to see colonoscopy scheduled asked patient if she knew thename of the provider of if it was listed on her paperwork. Patient reported that the procedure is being completed by [facility] and found a phone number for that office on her paperwork. Patient advised to call their office as they are not a [facility] provider. Patient verbalized understanding. documented in this encounterOhio[facility] NoteHNO ID: [id number] Author: OLMAN PAIZ PT Service: ? Author Type: Physical Therapist Type: Progress Notes Filed: 10/23/2024 11:49 Note Text: Episode Visit Count: 2 Therapist That Will Accept/Oversee The Plan Of Care: Olman Paiz PT Start of Care Date: 10/08/24 Onset Date: 08/03/24 Plan of Care Certification Date: 10/08/24 Next Certification Due Date: 11/13/24 Patient Identified by Name and Date of : Yes REHABILITATION AND SPORTS THERAPY PHYSICAL THERAPY DISCONTINUANCE OF CARE PLAN OF CARE UPDATE: Assessment: Anaya De La O is discontinued from Physical Therapy services due to goal achievement and maximal benefit. Patient was seen for 2 visits from Start of Care Date: 10/08/24 to 10/22/2024 and treatment included: Therapeutic exercise, Manual therapy, and Self-assisted management. Patient has seen no improvements in numbness of the L 3rd AND 4th digit since starting therapy. L Hand/digit symptoms and do not interrupt her function. Patient states she does not even notice the symptoms unless she thinks about it. Patient to continue exercises as tolerated and reach out if worsening condition. She will follow up with Samantha Jordan PA-C for an updated salazar of care. Goals for Episode of Care: established 10/08/24 [place] in home exercise program. (Goal Met) Restore pain free cervical ROM to WFL to allow for improved functional mobility. (Goal Met) Complete household and functional activities without pain/symptoms. (Goal Met) Reduce frequency/intensity of L Hand/digit symptoms. (Partially Met, not completely resolved. Hand/digit symptoms are not painful and do not affect her current function). SUBJECTIVE: Patient arrives with . helps answer history questions. Patient reports possibly having sxs everyday however not sure. States she probably ignores it. States nothing is long lasting when it comes on. States doing it everyday. Unsure if her sxs are better or the same the last week. Denies pain with any movement, ADLs or currently. Overall, inconsistent answers to subjective questioning. Pain: Pain Pain Level: 1 Pain Location: Hand - Left (States middle and ring finger dorsal and palmar side.) Description: Numbness PROMIS Scales 04/06/2024 Higher is Better Self-Eff Symptom - T Score 48 (Average) Self-Eff Symptom - Percentile 42 Proxy-reported 04/06/2024 Lower is Better Pain Interference - T Score 51 (within normal limits) Pain Interference - Percentile 46 Proxy-reported T-Score and Percentile Interpretation T-scores: mean of general population = 50. 5 points is clinically meaningfully difference Percentiles provide an indication of how the patient's score ranks in relation to the general population. Higher percentile rankings indicate better function/quality of life. 50th percentile is the average of the general population and indicates half of respondents had a worse score. OBJECTIVE MEASURES WITH LEVEL OF FUNCTION: Posture / Alignment Posture: Forward head, Rounded shoulders Sitting Posture: Comments Sitting Posture Comments: Patient has better awareness of improving posture. Spine Observations R Cervical Spine Palpation Tenderness: No tenderness noted, Comments Comments: Supraspinatus L Cervical Spine Palpation Tenderness: No tenderness noted, Comments Comments: Supraspinatus Cervical Spine ROM Cervical ROM : (NO RADICULAR SXS in the L Hand/fingers Brought on with any neck movements) Cervical Flexion AROM: Normal Cervical Extension AROM: Minimal limitation (WFL) Cervical Side-Bend Right AROM: Minimal limitation (WFL) Cervical Side-Bend Left AROM: Minimal limitation (WFL) Cervical Rotation Right AROM: Minimal limitation (WFL) Cervical Rotation Left AROM: Minimal limitation (WFL) UE AROM R UE AROM: WFL L UE AROM: WFL (NO RADICULAR SXS in the L Hand/fingers Brought on with any LUE movements) UE and Cervical Strength R UE Strength: Grossly 4+/5 with no myotomal differences.No radicular sxs creation. L UE Strength: Grossly 4+/5 with no myotomal differences. No radicular sxs creation. Special Tests - Cervical Cervical Compression: Negative Cervical Distraction: Negative Spurling: Left Negative, Right Negative Median Nerve: Left Negative Ulnar Nerve: Left Negative Radial Nerve: Left Negative Mendosa's: Left Negative, Right Negative Special Tests - Hip and Spine Special Test Comments: Trialed traction in multiple different angles and degrees -- concordant symptoms are not able to be aggravated/brought on or resolved with any cranial pull in multiple directions. Gait Gait Observation: Non-Remarkable. TREATMENT: Therapeutic Exercise: 1: Re-assessment as above. 2: HL Chin Tucks: 1x10, 3-sec hold. 3: Seated L UT Stretch: x30. 4: Seated L LS Stretch: x30. 5: Seated Retraction w/ R Hand OP: x10, 3-sec. 6: Seated Scap Squeezes: x10. (discussed no shrugs) 7: Pt wa (more content not included)...[facility]08-21-2025 History of Present illness Narrative* Olman Paiz, PT - 10/22/2024 2:22 PM EDT Images from the original note were not included. Episode Visit Count: 2 Therapist That Will Accept/Oversee The Plan Of Care: Olman Paiz PT Start of Care Date: 10/08/24 Onset Date: 08/03/24 Plan of Care Certification Date: 10/08/24 Next Certification Due Date: 11/13/24 Patient Identified by Name and Date of : Yes REHABILITATION AND SPORTS THERAPY PHYSICAL THERAPY DISCONTINUANCE OF CARE PLAN OF CARE UPDATE: Assessment: Anaya Kauffmanephraim is discontinued from Physical Therapy services due to goal achievement and maximal benefit. Patient was seen for 2 visits from Start of Care Date: 10/08/24 to 10/22/2024nd treatment included: Therapeutic exercise, Manual therapy, and Self-assisted management. Patient has seen no improvements in numbness of the L 3rd & 4th digit since starting therapy. LHand/digit symptoms and do not interrupt her function. Patient states she does not even notice the symptoms unless she thinks about it. Patient to continue exercises as tolerated and reach out if worsening condition. She will follow up with Samantha Jordan PA-C for an updated salazar of care. Goals for Episode of Care: established 10/08/24 [place] in home exercise program. (Goal Met) Restore pain free cervical ROM to WFL to allow for improved functional mobility. (Goal Met) Complete household and functional activities without pain/symptoms. (Goal Met) Reduce frequency/intensity of L Hand/digit symptoms. (Partially Met, not completely resolved. Hand/digit symptoms are not painful and do not affect her current function). SUBJECTIVE: Patient arrives with . helps answer history questions. Patient reports possibly having sxs everyday however not sure. States she probably ignores it. States nothing is longlasting when it comes on. States doing it everyday. Unsure if her sxs are better or the same the last week. Denies pain with any movement, ADLs or currently. Overall, inconsistent answers to subjective questioning. Pain: Pain Pain Level: 1 Pain Location: Hand - Left (States middle and ring finger dorsal and palmar side.) Description: Numbness PROMIS Scales 04/06/2024 Higher is Better Self-Eff Symptom - T Score 48 (Average) Self-Eff Symptom - Percentile 42 Proxy-reported 04/06/2024 Lower is Better Pain Interference - T Score 51 (within normal limits) Pain Interference - Percentile 46 Proxy-reported T-Score and Percentile Interpretation T-scores: mean of general population = 50. 5 points is clinically meaningfully difference Percentiles provide an indication of how the patient's score ranks in relation to the general population. Higher percentile rankings indicate better function/quality of life. 50th percentile is the average of the general population and indicates half of respondents had a worse score. OBJECTIVE MEASURES WITH LEVEL OF FUNCTION: Posture / Alignment Posture: Forward head, Rounded shoulders Sitting Posture: Comments Sitting Posture Comments: Patient has better awareness of improving posture. Spine Observations R Cervical Spine Palpation Tenderness: No tenderness noted, Comments Comments: Supraspinatus L Cervical Spine Palpation Tenderness: No tenderness noted, Comments Comments: Supraspinatus Cervical Spine ROM Cervical ROM : (NO RADICULAR SXS in the L Hand/fingers Brought on with any neck movements) Cervical Flexion AROM: Normal Cervical Extension AROM: Minimal limitation (WFL) Cervical Side-Bend Right AROM: Minimal limitation (WFL) Cervical Side-Bend Left AROM: Minimal limitation (WFL) Cervical Rotation Right AROM: Minimal limitation (WFL) Cervical Rotation Left AROM: Minimal limitation (WFL) UE AROM R UE AROM: WFL L UE AROM: WFL (NO RADICULAR SXS in the L Hand/fingers Brought on with any LUE movements) UE and Cervical Strength R UE Strength: Grossly 4+/5 with no myotomal differences.No radicular sxs creation. L UE Strength: Grossly 4+/5 with no myotomal differences. No radicular sxs creation. Special Tests - Cervical Cervical Compression: Negative Cervical Distraction: Negative Spurling: Left Negative, Right Negative Median Nerve: Left Negative Ulnar Nerve: Left Negative Radial Nerve: Left Negative Mendosa's: Left Negative, Right Negative Special Tests - Hip and Spine Special Test Comments: Trialed traction in multiple different angles and degrees -- concordant symptoms are not able to be aggravated/brought on or resolved with any cranial pull in multiple directions. Gait Gait Observation: Non-Remarkable. TREATMENT: Therapeutic Exercise: 1: Re-assessment as above. 2: HL Chin Tucks: 1x10, 3-sec hold. 3: Seated L UT Stretch: x30. 4: Seated L LS Stretch: x30. 5: Seated Retraction w/ R Hand OP: x10, 3-sec. 6: Seated Scap Squeezes: x10. (discussed no shrugs) 7: Pt was educated extensively on anatomy of symptomatic area, & possibly likely source of symptoms. Discussed how inconsistent nature of symptoms Skilled Intervention: Patient was educated in proper exercise technique and purpose for exercises. Reviewed and educated patient on additions/changes for home exercise program as above (*). Patient education as noted. Self-Penitentiary Management: 1: Encouraged pt. to contact provider and request another order for PT should symptoms worsen. 2: Advised for continued movement as tolerated and regular exercise. 3: Discussed keeping track of her symptoms freq, severity, what causes the pain/position, how long they last and can she do anything that takes it away. Skilled Intervention: Skilled judgment in the selection of proper modification for activity of daily living/home management based on clinical presentation, deficits, and needs. Activity progression based on professional judgement. Billing Therapeutic Exercise Treatment Minutes: 23 Self-Care/Home Management Treatment Minutes: 10 Skilled Treatment Time Minutes (timed and untimed codes): 33 Total Session Time (minutes): 33 Session Start Time : 1422 Session Stop Time : 1455 Olman Paiz PT documented in this encounterOhio[facility] NoteHNO ID: [id number] Author: OLMAN PAIZ PT Service: ? Author Type: Physical Therapist Type: Progress Notes Filed: 10/23/2024 11:50 Note Text: Episode Visit Count: 1 Therapist That Will Accept/Oversee The Plan Of Care: Olman Paiz PT Start of Care Date: 10/08/24 Onset Date: 08/03/24 Plan of Care Certification Date: 10/08/24 Next Certification Due Date: 11/13/24 Patient Identified by Name and Date of : Yes REHABILITATION AND SPORTS THERAPY PHYSICAL THERAPY EVALUATION PLAN OF CARE: Assessment: Anaya De La O presents with diagnosis of possible L C7-C8 Radiculopathy that interferes with nothing (Per patient) . The patient presents with impairments in flexibility, independence in exercise, overall function, posture, range of motion, soft tissue healing, symptom management, and tissue tenderness. Patient did not complete the PROMIS? (Patient Reported Outcome Measures Information System). Prognosis for therapy is Good due to: current objective clinical presentation . The patient will benefit from skilled therapy services to meet the goals established for this plan of care as noted below. Goals for Episode of Care: established 10/08/24 [place] in home exercise program. Patient will decrease pain rating by 2 points to meet minimal clinical important difference for numeric pain rating scale. Restore pain free cervical ROM to WFL to allow for improved functional mobility. Complete household and functional activities without pain/symptoms. Reduce frequency/intensity of L Hand/digit symptoms. Patient Goals: Decrease sxs. Time Frame for Goals and Treatment : 11/08/24 Planned Interventions, Frequency, and Duration: Current Frequency: 1x every other week Duration: 4 weeks Total Number of Visits Planned: 2 Planned Treatment Interventions: Therapeutic exercise (08367), Self-assisted management (53048), Neuromuscular re-education (21626), Therapeutic activities (37925), Manual therapy (29334), Patient/Family/Caregiver Education PLAN FOR NEXT VISIT: Review, correct and progress HEP; trial passive nerve glides, MT. Patient demonstrates good understanding of plan of care and treatment. The above goals and plan of care were discussed and agreed upon by patient/family. SUBJECTIVE: Patient here for tingling in the middle finger AND the ring finger. Patient reports her numbness/tingling has been about the same since being seen by neurology. This sxs does not prevent her from doing anything. Does not bother her from sleeping. Denies neck pain or LUE pain associated with this. Denies arm weakness. Patient Goals: Decrease sxs. Functional Limitations: nothing (Per patient) Prior Level of Function: Independent without limitations Relevant History Past Relevant Medical Conditions: Hypertension (Psoriatic arthritis; COPD; Hemorrhage of gastrointestinal tract, unspecified, Hemorrhage of rectum and anus.) Employment: Retired Intake Information: Prescription present Previous Treatment: None Falls Interview: No positive findings with falls interview Pain: Pain Pain Level: 0 Pain Location: Hand - Left (States no sxs currently.) PROMIS Scales 04/06/2024 Higher is Better Self-Eff Symptom - T Score 48 (Average) Self-Eff Symptom - Percentile 42 Proxy-reported 04/06/2024 Lower is Better Pain Interference - T Score 51 (within normal limits) Pain Interference - Percentile 46 Proxy-reported T-Score and Percentile Interpretation T-scores: mean of general population = 50. 5 points is clinically meaningfully difference Percentiles provide an indication of how the patient's score ranks in relation to the general population. Higher percentile rankings indicate better function/quality of life. 50th percentile is the average of the general population and indicates half of respondents had a worse score. OBJECTIVE MEASURES WITH LEVEL OF FUNCTION: Posture / Alignment Posture: Forward head, Rounded shoulders Spine Observations R Cervical Spine Palpation Tenderness: Upper trapezius L Cervical Spine Palpation Tenderness: Upper trapezius Sensation - Cervical Spine Cervical Spine Sensation: Grossly Intact Cervical Spine ROM Cervical ROM : Limitation AROM Cervical Flexion AROM: Normal Cervical Extension AROM: Minimal limitation Cervical Side-Bend Right AROM: Minimal limitation Cervical Side-Bend Left AROM: Minimal limitation (Possible Radicular Sxs, patient unsure.) Cervical Rotation Right AROM: Minimal limitation Cervical Rotation Left AROM: Minimal limitation UE Flexibility Flexibility: Upper Trapezius R Upper Trapezius Flexibilty Comments: Limited L Upper Trapezius Flexibility Comments: Limited UE and Cervical Strength R UE Strength: Grossly 4+/5 with no myotomal differences. L UE Strength: Grossly 4+/5 with no myotomal differences. Special Tests - Cervical Cervical Special Tests: Cervical Distraction, Cervical Compression, Spurl (more content not included)...[facility]07-22-2025 Instructions* Patient Instructions* Samantha Jordan PA-C - 09/22/2024 1:53 PM EDT Continue with stroke prevention. There is no way to know if your numbness of the left face and arm was stroke related because symptoms stopped before you had your MRI. Will continue to treat you withstroke prevention with aspirin daily and recommendations below. General guidelines for stroke risk factor management, if present Hypertension Target blood pressure <140/90, <130/80 for high risk; normal is 120/80 Hyperlipidemia Target total cholesterol < 200 Target LDL <100, < 70 for high risk Target HDL >45 for men, >55 for women Target triglycerides <150 Diabetes Target HgbA1c <7% Smoking Target is smoking cessation Physical inactivity Target is exercise at least 3 times per week Target waist circumference, in inches is <35 for women and <40 for men Since your symptoms still happen in the left hand and degeneration of your neck was found on imaging, will try physical therapy to relieve these symptoms. Follow up with Dr. Walton for lumbar pain as well as cervical degeneration. Follow up with me as needed if symptoms persist documented in this encounterOhio[facility] NoteHNO ID: [id number] Author: SAMANTHA JORDAN PA-C Service: ? Author Type: Physician Laundry Folder Type: Progress Notes Filed: 09/22/2024 14:16 Note Text: [facility] Name: Anaya De La O Age: [age] year old Gender: female Primary Care Provider: Edenilson Nicholson DO Consult requested for TIA by To Duran. Recommendations will be communicated via shared medical record or US mail. Chief Complaint:New Patient (TIA 08/13/24, occasional paresthesia of left FA and hand. Completed 30 day cardiac event monitor. ASA 81 mg and Lipitor 40 mg started.) 09/22/2024 - General Neurology, Samantha Jordan PA-C ASSESSMENT ASSESSMENT/PLAN: 1. Radiculopathy, cervical region - ICD9: 723.4, ICD10: M54.12 (primary diagnosis) 2. TIA (transient ischemic attack) - ICD9: 435.9, ICD10: G45.9 3. Paresthesia - ICD9: 782.0, ICD10: R20.2 Patient with sudden onset paresthesias of the left hand and left side of face on 08-19-2024 prompting a visit to the emergency department. Patient reports that symptoms resolved on arrival to the ER but it is noted that she had symptoms while in the ER but they resolved prior to admission. Does not appear she had her MRI with her symptoms, this was negative for stroke. CTA of the head and neck showed significant cervical radiculopathy but no occlusion. Patient states she is never had the symptoms before, CTA of the neck did show significant degeneration of the cervical spine but patient denying any neck pain. Was referred to see Dr. Walton for lumbar stenosis. Since has been home she has had a reoccurrence of paresthesias slowly in the left hand, not in the face. I did see some documentation of right-sided paresthesias but patient denies this. Patient reporting regular occurrence of paresthesias to the left hand, but is unable to give me a frequency or duration. notes that she complains about it quite often and it did occur while she was in the appointment today. No significant sensory abnormalities, reflexes with minimal increase on the left upper extremity but no significant weakness. Discussed with the initial presentation to the ER, this could be been a TIA as it involved her face as well. She is currently on aspirin and statin medications, recently finished her heart monitor. Encouraged continued stroke prevention with primary care management. Discussed at length signs and symptoms of stroke that would warrant going to the emergency department. However, due to persistent symptoms in the left hand with normal MRI of the brain per report and degeneration of the cervical spine appreciated on CTA of the neck, concern for cervical radiculopathy. Discussed physical therapy and patient is amenable to this. Discussed obtaining MRI of the cervical spine as well as an EMG but patient deferring these as she is not interested in surgery. No signs or symptoms of acute cord compression at this time. Patient has been agreeable to treatment plan at this time, all questions were answered. Patient to follow-up if symptoms persist. Samantha Jordan PA-C Encounter Diagnosis ICD-10-CM 1. Radiculopathy, cervical region M54.12 CONSULT TO PHYSICAL THERAPY 2. TIA (transient ischemic attack) G45.9 3. Paresthesia R20.2 This is a 84 year old female presenting with left arm paresthesias. Vessel imaging: Mild narrowing of the left subclavian Cardiac monitoring: Pending Lipids: On statin BP controlled? 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 Any acute facial droop, unilateral limb or hemibody weakness, slurring of speech, or inability to speak with retained consciousness, should prompt immediate evaluation in emergency room Chart, labs,and relevant images reviewed. HPI: Admitted on 08/13/24 for TIA at [facility]. Saw PCP on 08/19/24 Patient admitted to [facility] form 08/13 to 08/14 for TIA. Presented to the ER with left hand and face numbness with tingling which resolved prior to admission. Worked up with MRI of the brain which was negative. CTA head and neck showed mild narrowing of left subclavian artery and severe cervical spondylosis, but was otherwise negative. Echo negative with EF 65%. Consulted [facility] tele neurology who recommended 81 mg ASA daily, Lipitor 40 mg daily, and 30 day cardiac event monitor to evaluate for a fib/flutter. Discharged home with recommendation to f/u with PCP in 1-2 weeks and with neurology in 4-6 weeks. Today, patient states that she has not had any recurrent numbness and tingling in the face, but has had some occasional paresthesias into her left forearm and hand. Has not completed heart monitor. This is a 84 year old female presenting with her for evaluation of le (more content not included)...[facility]07-22-2025 History of Present illness Narrative* Samantha Jordan PA-C - 09/22/2024 1:11 PM EDT Images from the original note were not included. [facility] Name: Anaya De La O Age: [age] year old Gender: female Primary Care Provider: Edenilson Nicholson DO Consult requested for TIA by To [employer]. Recommendations will be communicated via sharedmedical record or US mail. Chief Complaint:New Patient (TIA 08/13/24, occasional paresthesia of left FA and hand. Completed 30day cardiac event monitor. ASA 81 mg and Lipitor 40 mg started.) 09/22/2024 - General Neurology, Samantha Jordan PA-C ASSESSMENT ASSESSMENT/PLAN: 1. Radiculopathy, cervical region - ICD9: 723.4, ICD10: M54.12 (primary diagnosis) 2. TIA (transient ischemic attack) - ICD9: 435.9, ICD10: G45.9 3. Paresthesia - ICD9: 782.0, ICD10: R20.2 Patient with sudden onset paresthesias of the left hand and left side of face on 08-19-2024 prompting a visit to the emergency department. Patient reports that symptoms resolved on arrival to the ER but it is noted that she had symptoms while in the ER but they resolved prior to admission. Does not appear she had her MRI with her symptoms, this was negative for stroke. CTA of the head and neck showed significant cervical radiculopathy but no occlusion. Patient states she is never had the symptoms before, CTA of the neck did show significant degeneration of the cervical spine but patient denying any neck pain. Was referred to see Dr. Walton for lumbar stenosis. Since has been home she has had a reoccurrence of paresthesias slowly in the left hand, not in the face. I did see some documentationof right-sided paresthesias but patient denies this. Patient reporting regular occurrence of paresthesias to the left hand, but is unable to give me a frequency or duration. notes that she complains about it quite often and it did occur while she was in the appointment today. No significant sensory abnormalities, reflexes with minimal increase on the left upper extremity but no significant weakness. Discussed with the initial presentation to the ER, this could be been a TIA as it involved her face as well. She is currently on aspirin and statin medications, recently finished her heartmonitor. Encouraged continued stroke prevention with primary care management. Discussed at length signs and symptoms of stroke that would warrant going to the emergency department. However, due to persistent symptoms in the left hand with normal MRI of the brain per report and degeneration of the cervical spine appreciated on CTA of the neck, concern for cervical radiculopathy. Discussed physicaltherapy and patient is amenable to this. Discussed obtaining MRI of the cervical spine as well as an EMG but patient deferring these as she is not interested in surgery. No signs or symptoms of acutecord compression at this time. Patient has been agreeable to treatment plan at this time, all questions were answered. Patient to follow-up if symptoms persist. Samantha Jordan PA-C Encounter Diagnosis ICD-10-CM 1. Radiculopathy, cervical region M54.12 CONSULT TO PHYSICAL THERAPY 2. TIA (transient ischemic attack) G45.9 3. Paresthesia R20.2 This is a 84 year old female presenting with left arm paresthesias. Vessel imaging: Mild narrowing of the left subclavian Cardiac monitoring: Pending Lipids: On statin BP controlled? 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 Any acute facial droop, unilateral limb or hemibody weakness, slurring of speech, or inability to speak with retained consciousness, should prompt immediate evaluation in emergency room Chart, labs,and relevant images reviewed. HPI: Admitted on 08/13/24 for TIA at [facility]. Saw PCP on 08/19/24 Patient admitted to [facility] form 08/13 to 08/14 for TIA. Presented to the ER with left hand and face numbness with tingling which resolved prior to admission. Worked up with MRI of the brain which was negative. CTA head and neck showed mild narrowing of left subclavian artery and severe cervical spondylosis, but was otherwise negative. Echo negativ e with EF 65%. Consulted [facility] tele neurology who recommended 81 mg ASA daily, Lipitor 40 mg daily, and 30 day cardiac event monitor to evaluate for a fib/flutter. Discharged home with recommendation to f/u with PCP in 1-2 weeks and with neurology in 4-6 weeks. Today, patient states that she has not had any recurrent numbness and tingling in the face, but hashad some occasional paresthesias into her left forearm and hand. Has not completed heart monitor. This is a 84 year old female presenting with her for evaluation of left- sided paresthesias.Patient is a poor historian and history is supplemented with her . Notes that on shewas stirring something over the stove when her hand went numb, states that she then started to feelsymptoms on the left side of her face. Denies any significant weakness, just states that the sensati on felt off. She called her daughter who then called her primary care doctor who told him to go to the emergency department. She states that by the time she went to the ER sure symptoms have resolved, and the noted does state that she had symptoms at the ER but resolved prior to admission. Does notappear that she had the symptoms while her MRI was obtained, this was negative for stroke. CTA did s how some mild stenosis of the left subclavian but no major artery occlusion. However, did also showsignificant degeneration of the cervical spine. Since patient has been home she has been experiencing some intermittent paresthesias of the left hand still at the 3rd and 4th digit throughout the entire finger. Notes it comes and goes, cannot give me an exact occurrence, is unsure how long it lastswhen it comes on. Notes that overall send is severe as when it was on August 19 when she went to the hospital. Is unsure of any trigger or certain position. Never on the right side, denies any neck pain. Was referred to Dr. Walton for lumbar pain but has not yet seen him. No falls, no bowel bladder inco ntinence or saddle anesthesia. Notes that her last fall was a year ago. No symptoms in the lower extremities. Has not had any recurrence of facial paresthesias. Of note, states that she did complete her heart monitor. Is compliant with aspirin and statins. 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 Nasal Sore Joshua (Generalized Anxiety Disorder) Short-Term Memory Loss Word Finding Difficulty Rectal Prolapse Recurrent Uti (Urinary Tract Infection) Osteopenia, Senile Psoriatic Arthritis (Hcc) Rales Pancreas Cyst (Hcc) Lip Lesion 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 FLUoxetine (PROZAC) 10 mg capsule Take 1 capsule by mouth once daily. Aspirin 81 mg tab Take 81 mg by mouth. losartan (COZAAR) 25 mg tablet Take 1 tablet by mouth once daily. cyclobenzaprine (FLEXERIL) 5 mg tablet Take 1 tablet by mouth three times a day as needed. hydrocortisone (ANUSOL-HC) 25 mg suppository 1 Suppository by RECTAL route two times a day as needed (hemorrhoids/rectal pain). donepezil (ARICEPT) 10 mg tablet Take 1 tablet by mouth daily at bedtime. ketoconazole (NIZORAL) 2 % cream Apply to affected area two times a day. amitriptyline (ELAVIL) 10 mg tablet Take 1 tablet by mouth daily at bedtime. methotrexate 2.5 mg tablet TAKE 5 TABLET(S) ORAL ONCE A WEEK START 4 TABS ONCE A WEEK FOR 2 WEEKS fluorometholone (FML LIQUID FILM) 0.1 % ophthalmic suspension Use 1 Drop in both eyes once daily. FOLIC ACID ORAL Take by mouth. 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 Language was fluent. Followed simple and complex commands. Cranial Nerves: Visual julio were full tested monocularly to finger counting in all 4 quadrants with no visual extinction. Pupils were equal and both reactive to light. Extraocular movements were full with no diplopia or nystagmus. Facial sensation was normal to light touch in V1 to V3. Facial strength was symmetric. Normal hearing grossly bilaterally. Palatal raise was symmetric. Shoulder shrug was symmetric. Tongue protrusion was symmetric with no fasciculations. Power: Slight decrease in hydrate thickener operator strength bilaterally at 4+/5 Right Left Shoulder Abduction: 5 5 Elbow Extension 5 5 Elbow Flexion 5 5 Wrist Extension 5 5 Finger Extension 5 5 Finger Abduction 5 5 Right Left Hip Flexion 5 5 Knee Extension 5 5 Knee Flexion 5 5 Dorsiflexion 5 5 Plantar Flexion 5 5 Rest tremor: absent Tone: Normal in all four limbs Reflexes: Negative Babinski Right Left Brachioradialis 2 2 Biceps 2 2+ Patella Unable to obtain Unable to obtain Ankle 1 1 Sensory: normal to light touch bilaterally without simultanagnosia. Possible slight decrease in temperature to the right hand but patient had difficulty assessing this Coordination: Normal finger to nose and heel to romero testing bilaterally. Gait is normal Labs: Lab Results Component Value Date WBC 5.49 05/15/2024 HCT 39.0 05/15/2024 MCV 92.4 05/15/2024 PLT 236 05/15/2024 Lab Results Component Value Date HBA1C 5.6 06/07/2021 HBA1C 5.7 04/19/2021 HBA1C 5.3 08/16/2016 Cholesterol, Total Date Value Ref Range Status 06/07/2021 252 (H) <200 mg/dL Final Comment: <200 mg/dL, Desirable 200-239 mg/dL, Borderline high >239 mg/dL, High HDL Cholesterol Date Value Ref Range Status 06/07/2021 97 >39 mg/dL Final Comment: 40-59 mg/dL, Acceptable >59 mg/dL, High: Negative risk factor for coronary heart disease <40 mg/dL, Low: Positive risk factor for coronary heart disease LDL Cholesterol, Calculated Date Value Ref Range Status 06/07/2021 147 (H) <100 mg/dL Final Comment: <100 mg/dL, Optimal 100-129 mg/dL, Near optimal/above optimal 130-159 mg/dL, Borderline high 160-189 mg/dL, High >189 mg/dL, Very high Secondary prevention optimal LDL Cholesterol levels are recommended to be < 70 mg/dL Triglyceride Date Value Ref Range Status 06/07/2021 42 <150 mg/dL Final Comment: <150 mg/dL, Normal 150-199 mg/dL, Borderline high 200-499 mg/dL, High >499 mg/dL, Very high Radiology: MRI Head/Brain - Last 2 Impressions MRI BRAIN WWO CONTRAST Collected: 06/28/2005 2:08 PM (Final result) , MRI Spine - Last 2 Impressions MRI LUMBAR SPINE WO IVCON Exam End: 07/29/2024 8:50 AM (Final result) Impression: IMPRESSION: 1. Scoliosis and spondylosis. 2. Significant lumbar central canal narrowing at L3-4 and L4-5. 3. Additional foraminal disease detailed level by level. COUNTING REFERENCE: Inferior lumbar disc taken as L5-S1. Structural anomalies: None. Medical Staff Manager: JAIME Transcribe Date/Time: Jul 29 2024 10:31A Dictated by : АННА WOODS MD This examination was interpreted and the report reviewed and electronically signed by: АННА WOODS MD on Jul 29 2024 10:34AM EST , CT Head/Brain - Last [address] BRAIN WO IVCON Exam End: 09/23/2023 1:57 PM (Final result) Impression: IMPRESSION: No intracranial hemorrhage or other acute intracranial abnormalities Medical Staff Manager: [facility] Transcribe Date/Time: Sep 23 2023 2:02P Dictated by : RADHA ELIAS DO This examination was interpreted and the report reviewed and electronically signed by: RADHA ELIAS DO on Sep 23 2023 2:08PM EST CT BRAIN WO IVCON Exam End: 08/15/2022 3:53 PM (Final result) Impression: IMPRESSION: No acute intracranial findings. Age-appropriate unremarkable brain. Medical Staff Manager: [facility] Transcribe Date/Time: Aug 15 2022 3:57P Dictated by : JESSY MONTERO MD This examination was interpreted and the report reviewed and electronically signed by: JESSY MONTERO MD on Aug 15 2022 3:59PM EST , and CTA Head and/or Neck - Last 2 No resulted procedures found. This note was dictated using [employer] speech recognition software and may contain some errors that were a result of the program not accurately transcribing what was dictated, despite efforts to make corrections. Note that unless urgent, test and MRI results will be discussed at next follow- up visit. PROMIS (Patient-Reported Outcomes Measurement Information System) is a set of person-centered measures that evaluates and monitors physical, social, and emotional health. It can be used with the general population and with individuals living with chronic conditions. PROMIS 10: PHYSICAL AND MENTAL HEALTH: 08/28/2021 PHQ-9 PHQ-2 Score 0 I spent a total of 45 minutes on the date of the service which included preparing to see the patient, [id number] patient care, completing clinical documentation, obtaining and/or reviewing separately obtained history, performing a medically appropriate examination, counseling and educating the pat ient/family/caregiver, and ordering medications, tests, or procedures. Recording using [employer] software for draft documentation of the visit was discussed with the patient/authorized sales representative printing supplies; all questions welcomed and answered. Patient/authorized sales representative printing supplies agreed to proceed documented in this encounterOhio[facility] Telephone encounter Note * Telephone Encounter - Yi Jones RN - 09/14/2024 1:47 PM EDT The patient has been identified by name and date of : Yes Caregiver verified no other encounters exist for this prescription request: Yes Caregiver confirmed with patient/requestor that no other refills are due, in the near future, with this provider at this time: Yes The last office visit in the department: 08/19/2024 Does the patient have a future office visit with this provider/department: Yes 10/19/2024 Requested Prescriptions Pending Prescriptions Disp Refills atorvastatin (LIPITOR) 40 mg tablet 30 tablet 5 Sig: Take 1 tablet by mouth once daily. FLUoxetine (PROZAC) 10 mg capsule 30 capsule 5 Sig: Take 1 capsule by mouth once daily. Yi Jones RN September 14, 2024 1:48 PM [facility]07-14-[facility] Miscellaneous Notes* Telephone Encounter - Yi Jones RN - 09/14/2024 1:47 PM EDT The patient has been identified by name and date of : Yes Caregiver verified no other encounters exist for this prescription request: Yes Caregiver confirmed with patient/requestor that no other refills are due, in the near future, with this provider at this time: Yes The last office visit in the department: 08/19/2024 Does the patient have a future office visit with this provider/department: Yes 10/19/2024 Requested Prescriptions Pending Prescriptions Disp Refills atorvastatin (LIPITOR) 40 mg tablet 30 tablet 5 Sig: Take 1 tablet by mouth once daily. FLUoxetine (PROZAC) 10 mg capsule 30 capsule 5 Sig: Take 1 capsule by mouth once daily. Yi Jones RN September 14, 2024 1:48 PM documented in this encounterOhiohealth [facility]06-18-[facility]25 Instructions* Patient Instructions* To Duran MD - 08/19/2024 10:40 AM EDT - Continue taking your baby aspirin once daily as prescribed. - Continue Lipitor (atorvastatin) 40 mg once daily for cholesterol management. - Call the hospital s main number today to confirm they have sent your 30-day cardiac event monitor. If it has not been shipped, let us know and we will arrange the monitor for you. - Follow up with your primary care and pain management teams if the [id number] sensation in your left arm continues or worsens. - A referral to neurology has been placed. Schedule a neurology appointment within the next 4 to 6 weeks. If their wait time is long, you may see the neurologist from your recent hospitalization. - Seek emergency care immediately (call 911 or go to the ER) if you develop any of the following: Sudden severe headache Vision changes Slurred speech Facial droop New weakness or numbness on one side of your body documented in this encounterOhiohealth O'[facility]06-18-2025 NoteHNO ID: [id number] Author: TO DURAN MD Service: ? Author Type: Physician Type: Progress Notes Filed: 08/19/2024 10:41 Note Text: Chief Complaint Patient presents with: Hospital F/U Recording using BrightEdge software for draft documentation of the visit was discussed with the patient/authorized sales representative printing supplies; all questions welcomed and answered. Patient/authorized sales representative printing supplies agreed to proceed HPI Anaya De La O is a 84 year old female who presents here today for Hospital Discharge Follow up. Patient admitted to [facility] form 08/13 to 08/14 for TIA. Presented to the ER with left hand and face numbness with tingling which resolved prior to admission. Worked up with MRI of the brain which was negative. CTA head and neck showed mild narrowing of left subclavian artery and severe cervical spondylosis, but was otherwise negative. Echo negative with EF 65%. Consulted [facility] tele neurology who recommended 81 mg ASA daily, Lipitor 40 mg daily, and 30 day cardiac event monitor to evaluate for a fib/flutter. Discharged home with recommendation to f/u with PCP in 1-2 weeks and with neurology in 4-6 weeks. Today, patient states that she has not had any recurrent numbness and tingling in the face, but has had some occasional paresthesias into her left forearm and hand. Episodes typically last at most 1 minute and occur several times per day. Denies headache, slurred speech, vision changes, facial droop, weakness. Compliant with her regimen since discharge. Has not gotten the event monitor yet, but [facility] is supposed to be mailing it to her. Denies chest pain, SOB, palpitations, LE edema, lightheadedness/dizziness, syncope. Patient has not scheduled f/u with neurology yet. Past medical history, appointments, medications, allergies reviewed. [...] on File Prior to Visit Medication Sig atorvastatin (LIPITOR) 40 mg tablet Take 40 mg by mouth once daily. Aspirin 81 mg tab Take 81 mg by mouth. losartan (COZAAR) 25 mg tablet Take 1 tablet by mouth once daily. FLUoxetine (PROZAC) 10 mg capsule Take 1 capsule by mouth once daily. cyclobenzaprine (FLEXERIL) 5 mg tablet Take 1 tablet by mouth three times a day as needed. hydrocortisone (ANUSOL-HC) 25 mg suppository 1 Suppository b (more content not included)...[facility]06-18-2025 History of Present illness Narrative* To Duran MD - 08/19/2024 10:08 AM EDT Chief Complaint Patient presents with: Hospital F/U Recording using BrightEdge software for draft documentation of the visit was discussed with the patient/authorized sales representative printing supplies; all questions welcomed and answered. Patient/authorized sales representative printing supplies agreed to proceed HPI Anaya De La O is a 84 year old female who presents here today for Hospital Discharge Follow up. Patient admitted to [facility] form 08/13 to 08/14 for TIA. Presented to the ER with left hand and face numbness with tingling which resolved prior to admission. Worked up with MRI of the brain which was negative. CTA head and neck showed mild narrowing of left subclavian artery and severe cervical spondylosis, but was otherwise negative. Echo negative with EF 65%. Consulted [facility] tele neurology who recommended 81 mg ASA daily, Lipitor 40 mg daily, and 30 day cardiac event monitor to evaluate for a fib/flutter. Discharged home with recommendation to f/u with PCP in 1-2 weeks and with neurology in 4-6 weeks. Today, patient states that she has not had any recurrent numbness and tingling in the face, but hashad some occasional paresthesias into her left forearm and hand. Episodes typically last at most 1 minute and occur several times per day. Denies headache, slurred speech, vision changes, facial droop, weakness. Compliant with her regimen since discharge. Has not gotten the event monitor yet, but [facility] is supposed to be mailing it to her. Denies chest pain, SOB, palpitations, LE edema, lightheadedness/dizziness, syncope. Patient has not scheduled f/u with neurology yet. Past medical history, appointments, medications, allergies reviewed. [...] on File Prior to Visit Medication Sig atorvastatin (LIPITOR) 40 mg tablet Take 40 mg by mouth once daily. Aspirin 81 mg tab Take 81 mg by mouth. losartan (COZAAR) 25 mg tablet Take 1 tablet by mouth once daily. FLUoxetine (PROZAC) 10 mg capsule Take 1 capsule by mouth once daily. cyclobenzaprine (FLEXERIL) 5 mg tablet Take 1 tablet by mouth three times a day as needed. hydrocortisone (ANUSOL-HC) 25 mg suppository 1 Suppository by RECTAL route two times a day as needed (hemorrhoids/rectal pain). donepezil (ARICEPT) 10 mg tablet Take 1 tablet by mouth daily at bedtime. ketoconazole (NIZORAL) 2 % cream Apply to affected area two times a day. amitriptyline (ELAVIL) 10 mg tablet Take 1 tablet by mouth daily at bedtime. methotrexate 2.5 mg tablet TAKE 5 TABLET(S) [...] REVIEW OF SYSTEMS See HPI EXAM: BP 112/60 Pulse (!) 50 Ht 147.3 cm (4' 10) Wt 52.7 kg (116 lb 3.2 oz) SpO2 97% BMI 24.29kg/m General Appearance: Well appearing, alert, in no acute distress, well-hydrated, well nourished.. Skin: Skin color, texture, turgor normal, no suspicious rashes or lesions. Lungs: Lungs clear to auscultation. No wheezing, rhonchi, rales.. Heart: bradycardic without murmur, gallop, or rubs. No ectopy. Abdomen: Normal abdominal exam, Abdomen soft, non-tender. Bowel sounds normal. No masses, organomegaly. Extremities: No deformities, edema, skin discoloration, clubbing or cyanosis. Good capillary refill. . Neurologic: Negative findings: speech normal, mental status intact, cranial nerves 2-12 intact, muscle tone normal, muscle strength normal, sensation to light touch and pinprick normal, reflexes normal and symmetric. Health Maintenance List Pneumococcal Vaccine: 50+(1 of 2 - PCV) Never done Shingrix Vaccine(1 of 2) due on 11/03/2012 RSV Vaccine(1 - 1-dose 75+ series) Never done Medicare Advantage Annual Wellness Visit Never done Covid-19 Vaccine(1) due on 01/21/2025 Influenza Vaccine(Season Ended) due on 11/02/2024 Diabetes Screening due on 05/16/2027 DTaP,Tdap,Td Vaccine(4 - Td or Tdap) due on 11/23/2032 Bone Density Screening Completed Cervical Cancer Screening Discontinued Colorectal Cancer Screening Discontinued Advance Directive Discussion Discontinued Data reviewed Labs and imaging from [facility] 08/13 and 08/14 1. TIA (transient ischemic attack) (G45.9) 2. Paresthesia (R20.2) - Recent hospitalization for suspected TIA with symptoms of left facial and hand paresthesia; symptoms resolved before hospital arrival, but persistent paresthesia in the left hand noted. May be remnant from TIA vs cervical spondylosis. Discussed EMG which she is refusing today. - No evidence of recurrent stroke/TIA on exam otherwise today. - Hospital workup included MRI of the brain, CT scan of the head and neck, and echocardiogram, all of which were unremarkable. - Neurology consult recommended initiation of aspirin 81 mg daily and atorvastatin 40 mg daily. - Ordered 30-day cardiac event monitor; patient advised to contact the hospital if not received. - Differential diagnoses for persistent paresthesia include carpal tunnel syndrome and cervical radiculopathy due to noted cervical arthritis on CT scan. - Advised follow-up with primary care and neurology within 4-6 weeks; referral to neurology placed. - Educated on signs of recurrent stroke (severe headache, vision loss, slurred speech, facial droop, unilateral weakness) and advised to seek immediate medical attention if these occur. 3. Hypertension, essential (I10) - Blood pressure well-controlled; no adjustments to current antihypertensive regimen necessary. 4. Hyperlipidemia, mixed (E78.2) - Managed with atorvastatin 40 mg daily as per neurology recommendation. 5. 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 To Duran MD documented in this encounterOhiohealth [facility]06-13-2025 Consult note Author Navya Shane [facility] Note Date/Time August 14, 2024 2:28 pm [facility] Medical Records Department [address] [place] [id number] Consultation - Neurology 08/14/24 1424 MR#: [id number] Acct: [id number] Name: ANAYA DE LA O Cristhian Rep #:[id number] : 1940 84 From: Navya Giraldo PCP: Dr. Edenilson Nicholson, DO Status:[facility] Location: [place] [address] Assessment and Plan: Stroke Assessment/Plan Patient presenting with two episodes of transient L face/L hand numbness which have resolved. Likely due to transient ischemic attack. -start ASA 81 daily , No DAPT as ABCD socre<4 -start atorvastatin 40 daily -goal LDL<70, HBA1c <7 -CTA head/neck ?no significant stenosis -fu TTE. Please reach out if any abnormality -Recommend ?30 day cardiac event monitor on discharge to evaluate for atrial fibrillation/flutter -BP goal 120/80 -no smoking -follow up with PCP 1-2 weeks and neurology ?4-6 weeks HPI Consult Data Date of Consult: 08/14/24 HPI Narrative HPI Narrative: 84 yo? F w PMH psoriatic arthritis, HTN, anxiety/depression, cognitive impairment presents with transient L hand/face numbness and tingling. On 08/13, awoke with numbnss in the left hand which resolved in 15 minutes. Later in the day while cooking noted tingling with L face which also resolved in 15 minutes. The last episode was at 4pm on 08/13. Went to ER for evaluation. Initial BP was 169/88. CTH negative, CTA showed no LVO or significant stenosis. MRI brain showed no significant abnormalities. Symptoms have since resolved. ?Never had prior similar episode and has not reoccurred. No AC/AP at home. ? Currently feels back to normal. [facility] Medical History DDD (degenerative disc disease) Psoriatic arthritis Home Medications ?Medication ?Instructions ?Recorded ?Last Taken ?Type ascorbic acid (vitamin C) 500 mg 500 mg PO DAILY@0800 SUPPLEMENT 09/07/16 08/12/24 History tablet (Vitamin C) cholecalciferol (vitamin D3) 125 5,000 unit PO DAILY B [email or web address] 09/07/16 09/06/16 History mcg (5,000 unit) capsule coenzyme Q10 100 mg capsule (Co 100 mg PO DAILY SUPPLE MENT 09/07/16 08/12/24 History Q-10) folic acid 1 mg tablet 2 mg PO DAILY SUPPLEMENT 09/1708/12/24 History glutamine 500 mg capsule 500 mg PO DAILY SUPPLEMENT 0 09/07/16 Unknown History (L-Glutamine) lutein 20 mg capsule 20 mg PO DAILY SUPPLEMENT 08/12/24 History methotrexate sodium 2.5 mg tablet 12.5 mg PO LORD ARHTRI TIS 09/07/16 08/08/24 History red yeast rice 600 mg capsule 600 mg PO BID SUPPLEMENT 09/07/16 08/12/24 History cyclobenzaprine 10 mg tablet 10 mg PO TID PRN PRN Back 09/11/16 Unknown Rx pain/muscle spasms #10 tabs amitriptyline 10 mg tablet 10 mg PO QHS mood 08/13/24 Unknown History donepezil 10 mg tablet 10 mg PO QHS memory 08/13/24 Unknown History fluorometholone 0.1 % eye 1 drp ophthalmic (eye) QODAY 08/13/24 Unknown History drops,suspension fluoxetine 10 mg capsule 10 mg PO DAILY depression Unknown History losartan 25 mg tablet 25 mg PO DAILY blood pressur e 08/13/24 Unknown History Allergy/AdvReac Type Severity Reaction Status Date / Time Penicillins Allergy Unknown Verified 08/13/24 18:11 meperidine HCl (From Demerol) AdvReac Intermediate Vomiting Verified 08/13/24 18:11 sertraline HCl (From Zoloft) AdvReac Intermediate Other Verified 08/13/24 18:11 acetaminophen (From AdvReac Mild Vomiting Verified 08/13/24 18:11 Darvocet-N 100) caffeine AdvReac Mild Other Verified 08/13/24 18:11 codeine AdvReac Mild Vomiting Verified 08/13/24 18:11 ephedrine AdvReac Mild Other Verified 08/13/24 18:11 propoxyphene napsylate (From AdvReac Mild Vomiting Verified 08/13/24 18:11 Darvocet-N 100) tramadol AdvReac Mild Vomiting Verified 08/13/24 18:11 ampicillin AdvReac Unknown Unknown Verified 08/13/24 18:11 griseofulvin AdvReac Unknown Unknown Verified 08/13/24 18:11 guaifenesin (From Entex [place]) AdvReac Unknown Unknown Verified 08/13/24 18:11 hydrocodone bitartrate (From AdvReac Unknown Unknown Verified 08/13/24 18:11 Vicodin) phenylephrine HCl (From AdvReac Unknown Unknown Verified 08/13/24 18:11 Entex LA) phenylpropanolamine HCl AdvReac Unknown Unknown Verified 08/13/24 18:11 (From Entex LA) Sulfa (Sulfonamide AdvReac Unknown Unknown Verified 08/13/24 18:11 Antibiotics) Family History Father Cancer Surgical History History of bilateral knee arthroplasty History of carpal tunnel release H/O: hysterectomy Social History (Updated 08/13/24 @ 22:21 by Mary Hanley) Smoking Status: Never smoker Vital Signs Vital Signs Vital Signs: 08/13/24 17:24 08/13/24 19:24 08/13/24 21:00 Temperature 98.3 F Temperature Source Oral Pulse Rate 63 47 L 50 L Respiratory Rate 16 18 15 Respiratory Effort Respiratory Depth Respiratory Pattern Blood Pressure 169/88 H 153/66 H 165/73 H Blood Pressure Mean 115 95 103 Blood Pressure Source Blood Pressure Position Blood Pressure Location Pulse Ox 100 98 100 Oxygen Delivery Method Room Air Room Air 08/13/24 21:12 08/13/24 22:00 08/13/24 22:30 Temperature 98 F 97.5 F L Temperature Source Oral Pulse Rate 59 L 51 L Respiratory Rate 14 14 Respiratory Effort Respiratory Depth Respiratory Pattern Blood Pressure 165/73 H 191/75 H Blood Pressure Mean 103 113 Blood Pressure Source Monitor Blood Pressure Position Semi-Fowlers Blood Pressure Location Left Arm Pulse Ox 100 99 100 Oxygen Delivery Method Room Air Room Air 08/13/24 22:45 08/14/24 01:56 08/14/24 02:00 Temperature 97.6 F L Temperature Source Oral Pulse Rate 53 L Respiratory Rate 16 Respiratory Effort Normal Non-Labored Normal Non-Labored Respiratory Depth Normal Normal Respiratory Pattern Normal Normal Blood Pressure 176/66 H Blood Pressure Mean 102 Blood Pressure Source Monitor Blood Pressure Position Supine Blood Pressure Location Left Arm Pulse Ox 100 Oxygen Delivery Method Room Air Room Air Room Air 08/14/24 05:55 08/14/24 06:55 08/14/24 09:00 Temperature 98.0 F 97.8 F Temperature Source Oral Temporal Pulse Rate 70 55 L Respiratory Rate 16 18 Respiratory Effort Respiratory Depth Respiratory Pattern Blood Pressure 178/80 H 171/78 H Blood Pressure Mean 112 109 Blood Pressure Source Monitor Monitor Blood Pressure Position Supine Semi-Fowlers Blood Pressure Location Left Arm Right Arm Pulse Ox 99 98 99 Oxygen Delivery Method Room Air Room Air Room Air 08/14/24 10:00 08/14/24 13:41 Temperature 97.8 F Temperature Source Temporal Pulse Rate 67 Respiratory Rate 18 Respiratory Effort Normal Non-Labored Respiratory Depth Normal Respiratory Pattern Normal Blood Pressure 131/71 H Blood Pressure Mean 91 Blood Pressure Source Monitor Blood Pressure Position Semi-Fowlers Blood Pressure Location Right Arm Pulse Ox 97 Oxygen Delivery Method Room Air Room Air Weight Weight: 52.1 kg Body Mass Index (BMI) 21.7 EEG Results Procedure Details EEG Procedure Details: ANAYA DE LA O is a 84 year old F with a past medical history of , who presents for evaluation of Electroencephalogram on DATE at TIME Physical Exam Narrative MS: awake, alert, oriented x 3, follows commands, able to name, no aphasia, no dysarthria CN: VFF, EOMI , no facial weakness, nml facial sensation M:? Antigravity in all extremities, no drift S: nml to LT in all extremities C: no dysmetria Lab / Micro Data 08/14/24 04:45 08/14/24 04:45 Labs: Laboratory Results - last 24 hr 08/13/24 18:49: WBC 6.4, RBC 4.26, Hgb 13.0, Hct 40.3, MCV 94.6, MCH 30.5, MCHC 32.3, RDW Std Deviation 48.3 H, RDW Coeff of Kate 14.3, Plt Count 200, MPV 10.7, Immature Gran % (Auto) 0.300, Neut % (Auto) 69.4, Lymph % (Auto) 21.3, [place] % (Auto) 7.1, Eos % (Auto) 1.3, Baso % (Auto) 0.6, Absolute Neuts (auto) 4.4, Absolute Lymphs (auto) 1.35, Nucleated RBC % 0, Sodium 138, Potassium 4.1, Chloride 101, Carbon Dioxide 26.3, Anion Gap 11, BUN 5, Creatinine 0.62 L, EstimCreat Clear Calc 39.50 L, Est GFR (MDRD) Non-Af 88, BUN/Creatinine Ratio 8.1 L, Glucose 99, Hemoglobin A1c 5.7, Calcium 9.5 08/13/24 20:01: POC Glucose 88 08/14/24 04:45: WBC 6.2, RBC 4.17 L, Hgb 12.8, Hct 38.7, MCV 92.8, MCH 30.7, MCHC 33.1, RDW Std Deviation 47.1 H, RDW Coeff of Kate 14.0, Plt Count 200, MPV 10.7, Immature Gran % (Auto) 0.300, Neut % (Auto) 63.9, Lymph % (Auto) 24.7, [place] % (Auto) 8.7, Eos % (Auto) 1.9, Baso % (Auto) 0.5, Absolute Neuts (auto) 4.0, Absolute Lymphs (auto) 1.54, Nucleated RBC % 0, Sodium 140, Potassium 3.8, Chloride 104, Carbon Dioxide 23.5, Anion Gap 12, BUN 5, Creatinine 0.56 L, EstimCreat Clear Calc 39.50 L, Est GFR (MDRD) Non-Af 90, BUN/Creatinine Ratio 8.2 L, Glucose 106 H, Calcium 9.4, Phosphorus 3.0, Magnesium 2.2, Total Bilirubin 0.64,AST 26, ALT 17, Alkaline Phosphatase 123 H, Total Protein 6.2, Albumin 3.9, Globulin 2.3, Albumin/Globulin Ratio 1.7, Triglycerides 70, Cholesterol 217 H, LDL Cholesterol, Calc 126, VLDL Cholesterol 14, HDL Cholesterol 77, Cholesterol/HDL Ratio 2.83, TSH 1.720 Imaging Radiology Impression Brain CT 08/13/24 18:34 IMPRESSION: No acute intracranial finding. Reading Location: [facility] Head/Neck CTA 08/13/24 18:34 IMPRESSION: 1. No large vessel occlusion, aneurysm or AVM. 2. 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 3. Severe cervical spondylosis. Reading Location: [facility] Brain MRI 08/14/24 21:27 IMPRESSION: 1. Mild cerebral atrophy. 2. No evidence of acute intracranial pathology. Reading Location: [place] [address] Active Medications Active Medications Active Medications: Current Medications Generic Name Dose Route Start Last Admin Trade Name Freq PRN Reason Stop Dose Admin Acetaminophen 650 mg 08/13/24 22:09 Acetaminophen 325 Mg Tablet PO Q6H PRN PRN Pain 1-10 Or Fever>100.7 Amitriptyline HCl 10 mg 08/13/24 22:09 08/13/24 23:42 Amitriptyline 10 Mg Tablet PO 10 mg QHS EILEEN Administration Ascorbic Acid 500 mg 08/14/24 08:00 08/14/24 09:03 Ascorbic Acid 500 Mg Tablet PO 500 mg DAILY@0800 EILEEN Administration Atorvastatin Calcium 40 mg 08/13/24 22:09 08/13/24 23:42 Atorvastatin Calcium 40 Mg Tablet PO 40 mg QHS EILEEN Administration Cholecalciferol 125 mcg 08/14/24 10:00 08/14/24 09:02 Cholecalciferol (Vit D3) 125 Mcg Capsule (5,000 Units) PO 125 mcg DAILY IELEEN Administration Clarify Med Order 1 each 08/13/24 22:30 08/14/24 08:06 Clarify Order NOTE Not Given CLARIFY [facility] Donepezil HCl 10 mg 08/13/24 22:09 08/13/24 23:42 Donepezil Hcl 10 Mg Tablet PO 10 mg QHS EILEEN Administration Enoxaparin Sodium 40 mg 08/14/24 10:00 08/14/24 09:02 Enoxaparin 40 Mg/0.4 Ml Syringe SC 40 mg DAILY EILEEN Administration Fluoxetine HCl 10 mg 08/14/24 10:00 08/14/24 09:03 Fluoxetine 10 Mg Capsule PO 10 mg DAILY [facility] Administration Folic Acid 2 mg 08/14/24 08:00 08/14/24 09:03 Folic Acid 1 Mg Tablet PO 2 mg BREAKFAST EILEEN Administration Hydralazine HCl 5 mg 08/13/24 22:09 Hydralazine 20 Mg/Ml Vial IV 08/14/24 22:09 Q30M PRN maintain BP parameters with HR <60 Sodium Chloride 250 mls @ 15 mls/hr 08/13/24 22:14 IV .[id number] PRN Saline Flush Sodium Chloride 250 mls @ 15 mls/hr 08/13/24 22:14 IV .[id number] PRN Additional IVPB Infusion Labetalol HCl 10 - 20 mg 08/13/24 22:09 Labetalol 20 Mg/4 Ml Vial IV 08/14/24 22:09 Q10M PRN PRN maintain BP parameters with HR >/=60 Melatonin 3 mg 08/13/24 22:09 Melatonin 3 Mg Tablet PO QHS PRN PRN INSOMNIA Methotrexate 12.5 mg 08/16/24 10:00 Methotrexate 2.5 Mg Tablet PO Lord@1000 [facility] Non-Formulary Medication 1 drp 08/15/24 10:00 Fluorometholone OPHTHALMIC QODAY EILEEN Ondansetron HCl 4 mg 08/13/24 22:09 Ondansetron 4 Mg/2 Ml Vial IV Q8H PRN PRN NAUSEA/VOMITING Senna/Docusate Sodium 2 tablet 08/13/24 22:09 Senna/Docusate Sodium 1 Tablet PO BID PRN PRN Constipation Sodium Chloride 10 - 40 ml 08/13/24 22:14 0.9% Saline Lock 10 Ml Syringe IV UD PRN SALINE FLUSH NIHSS NIHSS Nursing Documentation NIHSS Nursing Documentation: NIHSS: Ischemic Stroke/TIA Start: 08/13/24 22:09 Text: For PCU Patients: NIH and Neuro Check every 4 Status: Complete hours, PRN and with change in RN caregiver. Freq: [id number] Protocol: Activity Type Activity Date Activity User E-sign Co-sign Detail Recorded Client Recorded Date Recorded By Document 08/14/24 08:59 KS desktop 08/14/24 09:00 KS 08/14/24 08:59 NIH Stroke Scale [NIHSS] A score of 0 is normal or asymptomatic . Total possible score is 42. Inpatient: RN or Physician to activate a stroke alert for onset of new stroke symptoms or with NIHSS increase >/= 3 points. Following change in neurological status, NIHSS will be performed per physician order or more frequently PRN. -1a. Level of Consciousness 0 - Alert; keenly responsive -1b. LOC Questions 0 - Answers BOTH questions correctly -1c. LOC Commands 0 - Performs BOTH tasks correctly -2. Best Gaze 0 - Normal -3. Visual 0 - No visual loss -4. Facial Palsy 0 - Normal symmetrical movements -5a. Left Arm 0 - No drift; arm holds 90 ( or 45) degrees for full 10 seconds -5b. Right Arm 0 - No drift; arm holds 90 ( or 45) degrees for full 10 seconds -6a. Left Leg 0 - No drift; leg holds 30- degree position for full 5 seconds -6b. Right Leg 0 - No drift; leg holds 30- degree position for full 5 seconds -7. Limb Ataxia 0 - Absent -8. Sensory 0 - Normal; no sensory loss -9. Best Language 0 - No aphasia; normal -10. Dysarthria 0 - Normal -11. Extinction and Inattention 0 - No abnormality -Total 0 Query Text:A score of 0 is normal or asymptomatic. Total possible score is 42 . ED: Notify Physician for NIHSS increase by > / = 3 points. Inpatient: RN or Physician to activate a stroke alert for NIHSS increase of > / = 3 points. Coma Scale [Assess] -Eye Opening Spontaneous -Motor Obeys Commands -Verbal Oriented [Total] -Coma Scale Total 15 08/14/24 1428 <Electronically signed by Navya Shane MD> Cosigner Signature (if applicable): CC: Dr. Julius Pete, DO; Dr. Edenilson Nicholson DO~ Signed [facility] Work Phone: [phone] Discharge summary [facility] Medical Records Department [address] [place] [address] [place] [address] Discharge Summary 08/14/24 1534 MR#: [id number] Acct: [id number] Name: ANAYA DE LA O Rep #:[id number] : 1940 84 From: Jerome Brasher DO PCP: Dr. Edenilson Nicholson DO Status:AD M [facility] Location: [place] [address] Providers Date of Admission: 08/13/24 Primary Care Physician: Dr. Edenilson Nicholson DO Consultations 08/13/24 22:09 Consult: Tele-Neurology Routine Consulting Provider: [facility] Reason for Consult: Acute Ischemic Stroke/TIA EMERGENT Consult: No MD Notified: Yes Date Notified: 08/13/24 Time Notified: 22:17 Method of Notification: Answering Service Nursing Unit Staff Notify [facility] of Tele-Neurology Consult: Yes Reason For Visit: LEFT FACE AND ARM PARASTHESIAS Diagnosis Discharge Diagnosis (1) TIA (transient ischemic attack): Status: Acute Code(s): G45.9 - Transient cerebral ischemic attack, unspecified Plan: This is an 84-year-old female presents with left hand and face numbness and tingling. Symptoms did resolve. She underwent a stroke workup. MRI of the brain negative. Echo negative. [facility] recommending aspirin 81 mg daily. No need for dual antiplatelet therapy at this time. Atorvastatin 40 mg daily. Also recommending a 30-day cardiac event monitor to evaluate for A-fib/flutter. Patient follow-up with PCP in 1 to 2 weeks and neurology in 4 to 6weeks. Medications at Discharge Home Medications ascorbic acid (vitamin C) 500 mg tablet (Vitamin C) 500 mg PO DAILY@0800 SUPPLEMENT 09/07/16 cholecalciferol (vitamin D3) 125 mcg (5,000 unit) capsule 5,000 unit PO DAILY [facility] 09/07/16 coenzyme Q10 100 mg capsule (Co Q-10) 100 mg PO DAILY SUPPLEMENT 09/07/16 folic acid 1 mg tablet 2 mg PO DAILY SUPPLEMENT 09/07/16 glutamine 500 mg capsule (L-Glutamine) 500 mg PO DAILY SUPPLEMENT 09/07/16 lutein 20 mg capsule 20 mg PO DAILY SUPPLEMENT 09/07/16 methotrexate sodium 2.5 mg tablet 12.5 mg PO LORD ARHTRITIS 09/07/16 red yeast rice 600 mg capsule 600 mg PO BID SUPPLEMENT 09/07/16 cyclobenzaprine 10 mg tablet 10 mg PO TID PRN PRN Back pain/muscle spasms #10 tabs 09/11/16 amitriptyline 10 mg tablet 10 mg PO QHS mood 08/13/24 donepezil 10 mg tablet 10 mg PO QHS memory 08/13/24 fluorometholone 0.1 % eye drops,suspension 1 drp ophthalmic (eye) QODAY 08/13/24 fluoxetine 10 mg capsule 10 mg PO DAILY depression 08/13/24 losartan 25 mg tablet 25 mg PO DAILY blood pressure 08/13/24 aspirin 81 mg tablet 81 mg PO DAILY #30 tabs 08/14/24 atorvastatin 40 mg tablet 40 mg PO QHS #30 tabs 08/14/24 Hospital Course Procedures 2-D Echocardiogram Summary of Care Provided Minutes Spent on Discharge: 32 Physical Exam Const alert and no apparent distress Constitutional Narrative: Seen have an echocardiogram. No facial droop. Moves all extremity spontaneously. General Appearance: cooperative and comfortable Weight / BMI Weight Weight: 52.1 kg Body Mass Index (BMI) 21.7 ABG / Lab / Microbiology Data 08/14/24 04:45 08/14/24 04:45 Laboratory: Laboratory Results - last 24 hr 08/13/24 18:49: WBC 6.4, RBC 4.26, Hgb 13.0, Hct 40.3, MCV 94.6, MCH 30.5, MCHC 32.3, RDW Std Deviation 48.3 H, RDW Coeff of Kate 14.3, Plt Count 200, MPV 10.7, Immature Gran % (Auto) 0.300, Neut % (Auto) 69.4, Lymph % (Auto) 21.3, [place] % (Auto) 7.1, Eos % (Auto) 1.3, Baso % (Auto) 0.6, Absolute Neuts (auto) 4.4, Absolute Lymphs (auto) 1.35, Nucleated RBC % 0, Sodium 138, Potassium 4.1, Chloride 101, Carbon Dioxide 26.3, Anion Gap 11, BUN 5, Creatinine 0.62 L, EstimCreat Clear Calc 39.50 L, Est GFR (MDRD) Non-Af 88, BUN/Creatinine Ratio 8.1 L, Glucose 99, Hemoglobin A1c 5.7, Calcium 9.5 08/13/24 20:01: POC Glucose 88 08/14/24 04:45: WBC 6.2, RBC 4.17 L, Hgb 12.8, Hct 38.7, MCV 92.8, MCH 30.7, MCHC 33.1, RDW Std Deviation 47.1 H, RDW Coeff of Kate 14.0, Plt Count 200, MPV 10.7, Immature Gran % (Auto) 0.300, Neut % (Auto) 63.9, Lymph % (Auto) 24.7, [place] % (Auto) 8.7, Eos % (Auto) 1.9, Baso % (Auto) 0.5, Absolute Neuts (auto) 4.0, Absolute Lymphs (auto) 1.54, Nucleated RBC % 0, Sodium 140, Potassium 3.8, [id number], Carbon Dioxide 23.5, Anion Gap 12, BUN 5, Creatinine 0.56 L, EstimCreat Clear Calc 39.50 L, Est GFR (MDRD) Non-Af 90, BUN/Creatinine Ratio 8.2 L, Glucose 106 H, Calcium 9.4, Phosphorus 3.0, Magnesium 2.2, Total Bilirubin 0.64,AST 26, ALT 17, Alkaline Phosphatase 123 H, Total Protein 6.2, Albumin 3.9, Globulin 2.3, Albumin/Globulin Ratio 1.7, Triglycerides 70, Cholesterol 217 H, LDL Cholesterol, Calc 126, VLDL Cholesterol 14, HDL Cholesterol 77, Cholesterol/HDL Ratio 2.83, TSH 1.720 Radiography Diagnostic Testing: Radiology Impression Brain CT 08/13/24 18:34 IMPRESSION: No acute intracranial finding. Reading Location: [facility] Head/Neck CTA 08/13/24 18:34 IMPRESSION: 1. No large vessel occlusion, aneurysm or AVM. 2. 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 3. Severe cervical spondylosis. Reading Location: [facility] Echocardiogram 08/13/24 21:27 Interpretation Summary The LV ejection fraction is 65 %. Left ventricular systolic function is normal. Mild (1+) aortic valve insufficiency. Grade 1 diastolic dysfunction Trivial mitral valve insufficiency. Ordering Physician: Ramona Darden Referring Physician: Edenilson Nicholson Performed By: Sharon Selby RDCS, RVT Brain MRI 08/14/24 21:27 IMPRESSION: 1. Mild cerebral atrophy. 2. No evidence of acute intracranial pathology. Reading Location: [place] [address] D/C Instructions Discharge Diet: Low fat / Low cholesterol DC O2, CPAP, BIPAP Needs Home O2 Discharge instructions: No Meaningful Use Info Meaningful Use Meaningful Use Diagnoses (Choose all that apply): Ischemic CVA CVA Therapy Assessed for PT,OT and/or ST?: Yes Ischemic Stroke Antithrombotic order at d/c?: Yes Dx of Atrial fib/flutter?: No Anticoagulant at discharge?: No Reason anticoagulant not ordered: Treatment not Indicated Statin Dosing Therapy Reference: STATIN DOSE THERAPY REFERENCE: * Patients > 75 years receive moderate or high dose statin therapy. * Patients 75 years or YOUNGER should receive HIGH intensity statin dose unless contraindicated. You will be required to document reason for non-treatment if statin daily dose does not meet guidelines. HIGH DOSE STATIN THERAPY DAILY Atorvastatin > than or = to 40 mg Rosuvastatin > than or = to 20 mg Amlodipine + Atorvastatin > than or = to 2.5/40 mg Ezetimibe + Simvastatin 10/80 mg Simvastatin 80mg Statins at discharge?: Yes Primary Dx Acute Ischemic CVA?: Yes IV thrombolytic ordered during stay?: No Reason IV thrombolytic not ordered: Treatment not Indicated Discharge Plan Admission Admit Date/Time: 08/13/24 21:21 Primary Reason for Your Visit: TIA Attending Provider: Jerome Brasher Primary Care Provider: Edenilson Nicholson Consulting Providers: Pop Toro; Maira Neely; Yuliet Messer; Elissa Pyle; Sharri Marroquin; Anthony Kent; Leti Yarbrough; Aric Martinez; Isai Chanel; Maury Garnica; Carol Porras; Margaret Us; Nathaly Alberto; Navya Shane; Lucia Welsh; Willy Goldsmith; Allegra Mg; Abdifatah Chen; Libby Darden; Rahul Quiñonez;Ramona Darden Instructions Patient Instructions: What Is a TIA? Additional Instructions / Restrictions: You had symptoms concerning for a TIA (transient ischemic attack). Neurology isrecommending aspirinas well as cholesterol medication and an event monitor. Please follow-up with your primary care doctor in 1 to 2 weeks and neurology in 4 to 6 weeks as you are able. Discharge Orders/Prescriptions Prescriptions: New atorvastatin 40 mg Tablet 40 mg PO QHS Qty: 30 0RF aspirin 81 mg tablet 81 mg PO DAILY Qty: 30 0RF Rx Instructions: [id number]. No prescription required Continued L-Glutamine 500 MG capsule 500 mg PO DAILY ascorbic acid (vitamin C) [Vitamin C] 500 MG tablet 500 mg PO DAILY@0800 cholecalciferol (vitamin D3) 5,000 UNIT capsule 5,000 unit PO DAILY coenzyme Q10 [Co Q-10] 100 MG capsule 100 mg PO DAILY lutein 20 MG capsule 20 mg PO DAILY red yeast rice 600 MG capsule 600 mg PO BID methotrexate sodium 2.5 MG tablet 12.5 mg PO LORD Patient Comments: on sundays. folic acid 1 MG tablet 2 mg PO DAILY cyclobenzaprine 10 MG tablet 10 mg PO TID PRN PRN (Reason: Back pain/muscle spasms) Qty: 10 0RF donepezil 10 mg tablet 10 mg PO QHS amitriptyline 10 mg tablet 10 mg PO QHS fluorometholone 0.1 % drops,suspension 1 drp ophthalmic (eye) QODAY losartan 25 mg tablet 25 mg PO DAILY fluoxetine 10 mg capsule 10 mg PO DAILY Other Ambulatory Orders: 30 Day Event Recorder Preventi (Urgent) Timeframe: 1 Day Facility: [facility] - Location: Cardiovascular Services Ordered By: Dr. Jerome Brasher Referrals / Follow Up: Edenilson Nicholson DO [Primary Care Provider] - Charges/Coding Visit Charges Inpatient E&M: 58814 Disch Hosp >30min 08/14/24 1541 Cosigner Signature (if applicable): CC: Dr. Jerome Brasher DO; Dr. Edenilson Nicholson DO~ Signed [facility]06-13-2025 [facility] Medical Records Department [address] [place] [id number] Discharge Summary 08/14/24 1534 MR#: [id number] Acct: [id number] Name: ANAYA DE LA O Rep #: [id number] : 1940 84 From: Jerome Brasher DO PCP: Dr. Edenilson Nicholson DO Status:ADM CHRISTINE Location: [place] [address] Providers Date of Admission: 08/13/24 Primary Care Physician: Dr. Edenilson Nicholson DO Consultations 08/13/24 22:09 Consult: Tele-Neurology Routine Consulting Provider: [facility] Reason for Consult: Acute Ischemic Stroke/TIA EMERGENT Consult: No MD Notified: Yes Date Notified: 08/13/24 Time Notified: 22:17 Method of Notification: Answering Service Nursing Unit Staff Notify [facility] of Tele-Neurology Consult: Yes Reason For Visit: LEFT FACE AND ARM PARASTHESIAS Diagnosis Discharge Diagnosis (1) TIA (transient ischemic attack): Status: Acute Code(s): G45.9 - Transient cerebral ischemic attack, unspecified Plan: This is an 84-year-old female presents with left hand and face numbness and tingling. Symptoms did resolve. She underwent a stroke workup. MRI of the brain negative. Echo negative. [facility] recommending aspirin 81 mg daily. No need for dual antiplatelet therapy at this time. Atorvastatin 40 mg daily. Also recommending a 30-day cardiac event monitor to evaluate for A- fib/flutter. Patient follow-up with PCP in 1 to 2 weeks and neurology in 4 to 6 weeks. Medications at Discharge Home Medications ascorbic acid (vitamin C) 500 mg tablet (Vitamin C) 500 mg PO DAILY@0800 SUPPLEMENT 09/07/16 cholecalciferol (vitamin D3) 125 mcg (5,000 unit) capsule 5,000 unit PO DAILY [facility] 09/07/16 coenzyme Q10 100 mg capsule (Co Q-10) 100 mg PO DAILY SUPPLEMENT 09/07/16 folic acid 1 mg tablet 2 mg PO DAILY SUPPLEMENT 09/07/16 glutamine 500 mg capsule (L-Glutamine) 500 mg PO DAILY SUPPLEMENT 09/07/16 lutein 20 mg capsule 20 mg PO DAILY SUPPLEMENT 09/07/16 methotrexate sodium 2.5 mg tablet 12.5 mg PO LORD ARHTRITIS 09/07/16 red yeast rice 600 mg capsule 600 mg PO BID SUPPLEMENT 09/07/16 cyclobenzaprine 10 mg tablet 10 mg PO TID PRN PRN Back pain/muscle spasms #10 tabs 09/11/16 amitriptyline 10 mg tablet 10 mg PO QHS mood 08/13/24 donepezil 10 mg tablet 10 mg PO QHS memory 08/13/24 fluorometholone 0.1 % eye drops,suspension 1 drp ophthalmic (eye) QODAY 08/13/24 fluoxetine 10 mg capsule 10 mg PO DAILY depression 08/13/24 losartan 25 mg tablet 25 mg PO DAILY blood pressure 08/13/24 aspirin 81 mg tablet 81 mg PO DAILY #30 tabs 08/14/24 atorvastatin 40 mg tablet 40 mg PO QHS #30 tabs 08/14/24 Hospital Course Procedures 2-D Echocardiogram Summary of Care Provided Minutes Spent on Discharge: 32 Physical Exam Const alert and no apparent distress Constitutional Narrative: Seen have an echocardiogram. No facial droop. Moves all extremity spontaneously. General Appearance: cooperative and comfortable Weight / BMI Weight Weight: 52.1 kg Body Mass Index (BMI) 21.7 ABG / Lab / Microbiology Data 08/14/24 04:45 08/14/24 04:45 Laboratory: Laboratory Results - last 24 hr 08/13/24 18:49: WBC 6.4, RBC 4.26, Hgb 13.0, Hct 40.3, MCV 94.6, MCH 30.5, MCHC 32.3, RDW Std Deviation 48.3 H, RDW Coeff of Kate 14.3, Plt Count 200, MPV 10.7, Immature Gran % (Auto) 0.300, Neut % (Auto) 69.4, Lymph % (Auto) 21.3, [place] % (Auto) 7.1, Eos % (Auto) 1.3, Baso % (Auto) 0.6, Absolute Neuts (auto) 4.4, Absolute Lymphs (auto) 1.35, Nucleated RBC % 0, Sodium 138, Potassium 4.1, Chloride 101, Carbon Dioxide 26.3, Anion Gap 11, BUN 5, Creatinine 0.62 L, Estim Creat Clear Calc 39.50 L, Est GFR (MDRD) Non-Af 88, BUN/Creatinine Ratio 8.1 L, Glucose 99, Hemoglobin A1c 5.7, Calcium 9.5 08/13/24 20:01: POC Glucose 88 08/14/24 04:45: WBC 6.2, RBC 4.17 L, Hgb 12.8, Hct 38.7, MCV 92.8, MCH 30.7, MCHC 33.1, RDW Std Deviation 47.1 H, RDW Coeff of Kate 14.0, Plt Count 200, MPV 10.7, Immature Gran % (Auto) 0.300, Neut % (Auto) 63.9, Lymph % (Auto) 24.7, [place] % (Auto) 8.7, Eos % (Auto) 1.9, Baso % (Auto) 0.5, Absolute Neuts (auto) 4.0, Absolute Lymphs (auto) 1.54, Nucleated RBC % 0, Sodium 140, Potassium 3.8, Chloride 104, Carbon Dioxide 23.5, Anion Gap 12, BUN 5, Creatinine 0.56 L, Estim Creat Clear Calc 39.50 L, Est GFR (MDRD) Non-Af 90, BUN/Creatinine Ratio 8.2 L, Glucose 106 H, Calcium 9.4, Phosphorus 3.0, Magnesium 2.2, Total Bilirubin 0.64, AST 26, ALT 17, Alkaline Phosphatase 123 H, Total Protein 6.2, Albumin 3.9, Globulin 2.3, Albumin/Globulin Ratio 1.7, Triglycerides 70, C holesterol 217 H, LDL Cholesterol, Calc 126, VLDL Cholesterol 14, HDL Cholesterol 77, Cholesterol/HDL Ratio 2.83, TSH 1.720 Radiography Diagnostic Testing: Radiology Impression Brain CT 08/13/24 18:34 IMPRESSION: No acute intracranial finding. Electronically Signed By: Elvia Chan MD on 08/13 (more content not included)...[facility]06-13-2025 Consult note [facility] Medical Records Department [address] [place] [address] Consultation - Neurology 08/14/24 1424 MR#: [id number] Acct: [id number] Name: ANAYA DE LA O Rep #:[id number] : 1940 84 From: Navya Giraldo PCP: Dr. Edenilson Nicholson, DO Status:EDOUARD [facility]ING Location: [place] [address] Assessment and Plan: Stroke Assessment/Plan Patient presenting with two episodes of transient L face/L hand numbness which have resolved. Likely due to transient ischemic attack. -start ASA 81 daily , No DAPT as ABCD socre<4 -start atorvastatin 40 daily -goal LDL<70, HBA1c <7 -CTA head/neck ?no significant stenosis -fu TTE. Please reach out if any abnormality -Recommend ?30 day cardiac event monitor on discharge to evaluate for atrial fibrillation/flutter -BP goal 120/80 -no smoking -follow up with PCP 1-2 weeks and neurology ?4-6 weeks HPI Consult Data Date of Consult: 08/14/24 HPI Narrative HPI Narrative: 84 yo? F w PMH psoriatic arthritis, HTN, anxiety/depression, cognitive impairment presents with transient L hand/face numbness and tingling. On 08/13, awoke with numbnss in the left hand which resolved in 15 minutes. Later in the day while cooking noted tingling with L face which also resolved in 15minutes. The last episode was at 4pm on 08/13. Went to ER for evaluation. Initial BP was 169/88. CTHnegative, CTA showed no LVO or significant stenosis. MRI brain showed no significant abnormalities.Symptoms have since resolved. ?Never had prior similar episode and has not reoccurred. No AC/AP at home. ? Currently feels back to normal. [facility] Medical History DDD (degenerative disc disease) Psoriatic arthritis Home Medications ?Medication ?Instructions ?Recorded ?Last Taken ?Type ascorbic acid (vitamin C) 500 mg 500 mg PO DAILY@0800 SUPPLEMENT 09/07/16 08/12/24 History tablet (Vitamin C) cholecalciferol (vitamin D3) 125 5,000 unit PO DAILY [facility] 09/07/16 09/06/16 History mcg (5,000 unit) capsule coenzyme Q10 100 mg capsule (Co 100 mg PO DAILY SUPPLE MENT 09/07/16 08/12/24 History Q-10) folic acid 1 mg tablet 2 mg PO DAILY SUPPLEMENT 09/1708/12/24 History glutamine 500 mg capsule 500 mg PO DAILY SUPPLEMENT 0 09/07/16 Unknown History (L-Glutamine) lutein 20 mg capsule 20 mg PO DAILY SUPPLEMENT 08/12/24 History methotrexate sodium 2.5 mg tablet 12.5 mg PO LORD ARHTRI TIS 09/07/16 08/08/24 History red yeast rice 600 mg capsule 600 mg PO BID SUPPLEMENT 09/07/16 08/12/24 History cyclobenzaprine 10 mg tablet 10 mg PO TID PRN PRN Back 09/11/16 Unknown Rx pain/muscle spasms #10 tabs amitriptyline 10 mg tablet 10 mg PO QHS mood 08/13/24 Unknown History donepezil 10 mg tablet 10 mg PO QHS memory 08/13/24 Unknown History fluorometholone 0.1 % eye 1 drp ophthalmic (eye) QODAY 08/13/24 Unknown History drops,suspension fluoxetine 10 mg capsule 10 mg PO DAILY depression Unknown History losartan 25 mg tablet 25 mg PO DAILY blood pressur e 08/13/24 Unknown History Allergy/AdvReac Type Severity Reaction Status Date / Time Penicillins Allergy Unknown Verified 08/13/24 18:11 meperidine HCl (From Demerol) AdvReac Intermediate Vomiting Verified 08/13/24 18:11 sertraline HCl (From Zoloft) AdvReac Intermediate Other Verified 08/13/24 18:11 acetaminophen (From AdvReac Mild Vomiting Verified 08/13/24 18:11 Darvocet-N 100) caffeine AdvReac Mild Other Verified 08/13/24 18:11 codeine AdvReac Mild Vomiting Verified 08/13/24 18:11 ephedrine AdvReac Mild Other Verified 08/13/24 18:11 propoxyphene napsylate (From AdvReac Mild Vomiting Verified 08/13/24 18:11 Darvocet-N 100) tramadol AdvReac Mild Vomiting Verified 08/13/24 18:11 ampicillin AdvReac Unknown Unknown Verified 08/13/24 18:11 griseofulvin AdvReac Unknown Unknown Verified 08/13/24 18:11 guaifenesin (From Entex [place]) AdvReac Unknown Unknown Verified 08/13/24 18:11 hydrocodone bitartrate (From AdvReac Unknown Unknown Verified 08/13/24 18:11 Vicodin) phenylephrine HCl (From AdvReac Unknown Unknown Verified 08/13/24 18:11 Entex LA) phenylpropanolamine HCl AdvReac Unknown Unknown Verified 08/13/24 18:11 (From Entex LA) Sulfa (Sulfonamide AdvReac Unknown Unknown Verified 08/13/24 18:11 Antibiotics) Family History Father Cancer Surgical History History of bilateral knee arthroplasty History of carpal tunnel release H/O: hysterectomy Social History (Updated 08/13/24 @ 22:21 by Mary Hanley) Smoking Status: Never smoker Vital Signs Vital Signs Vital Signs: 08/13/24 17:24 08/13/24 19:24 08/13/24 21:00 Temperature 98.3 F Temperature Source Oral Pulse Rate 63 47 L 50 L Respiratory Rate 16 18 15 Respiratory Effort Respiratory Depth Respiratory Pattern Blood Pressure 169/88 H 153/66 H 165/73 H Blood Pressure Mean 115 95 103 Blood Pressure Source Blood Pressure Position Blood Pressure Location Pulse Ox 100 98 100 Oxygen Delivery Method Room Air Room Air 08/13/24 21:12 08/13/24 22:00 08/13/24 22:30 Temperature 98 F 97.5 F L Temperature Source Oral Pulse Rate 59 L 51 L Respiratory Rate 14 14 Respiratory Effort Respiratory Depth Respiratory Pattern Blood Pressure 165/73 H 191/75 H Blood Pressure Mean 103 113 Blood Pressure Source Monitor Blood Pressure Position Semi-Fowlers Blood Pressure Location Left Arm Pulse Ox 100 99 100 Oxygen Delivery Method Room Air Room Air 08/13/24 22:45 08/14/24 01:56 08/14/24 02:00 Temperature 97.6 F L Temperature Source Oral Pulse Rate 53 L Respiratory Rate 16 Respiratory Effort Normal Non-Labored Normal Non-Labored Respiratory Depth Normal Normal Respiratory Pattern Normal Normal Blood Pressure 176/66 H Blood Pressure Mean 102 Blood Pressure Source Monitor Blood Pressure Position Supine Blood Pressure Location Left Arm Pulse Ox 100 Oxygen Delivery Method Room Air Room Air Room Air 08/14/24 05:55 08/14/24 06:55 08/14/24 09:00 Temperature 98.0 F 97.8 F Temperature Source Oral Temporal Pulse Rate 70 55 L Respiratory Rate 16 18 Respiratory Effort Respiratory Depth Respiratory Pattern Blood Pressure 178/80 H 171/78 H Blood Pressure Mean 112 109 Blood Pressure Source Monitor Monitor Blood Pressure Position Supine Semi-Fowlers Blood Pressure Location Left Arm Right Arm Pulse Ox 99 98 99 Oxygen Delivery Method Room Air Room Air Room Air 08/14/24 10:00 08/14/24 13:41 Temperature 97.8 F Temperature Source Temporal Pulse Rate 67 Respiratory Rate 18 Respiratory Effort Normal Non-Labored Respiratory Depth Normal Respiratory Pattern Normal Blood Pressure 131/71 H Blood Pressure Mean 91 Blood Pressure Source Monitor Blood Pressure Position Semi-Fowlers Blood Pressure Location Right Arm Pulse Ox 97 Oxygen Delivery Method Room Air Room Air Weight Weight: 52.1 kg Body Mass Index (BMI) 21.7 EEG Results Procedure Details EEG Procedure Details: ANAYA DE LA O is a 84 year old F with a past medical history of , who presents for evaluation of Electroencephalogram on DATE at TIME Physical Exam Narrative MS: awake, alert, oriented x 3, follows commands, able to name, no aphasia, no dysarthria CN: VFF, EOMI , no facial weakness, nml facial sensation M:? Antigravity in all extremities, no drift S: nml to LT in all extremities C: no dysmetria Lab / Micro Data 08/14/24 04:45 08/14/24 04:45 Labs: Laboratory Results - last 24 hr 08/13/24 18:49: WBC 6.4, RBC 4.26, Hgb 13.0, Hct 40.3, MCV 94.6, MCH 30.5, MCHC 32.3, RDW Std Deviation 48.3 H, RDW Coeff of Kate 14.3, Plt Count 200, MPV 10.7, Immature Gran % (Auto) 0.300, Neut % (Auto) 69.4, Lymph % (Auto) 21.3, [place] % (Auto) 7.1, Eos % (Auto) 1.3, Baso % (Auto) 0.6, Absolute Neuts (auto) 4.4, Absolute Lymphs (auto) 1.35, Nucleated RBC % 0, Sodium 138, Potassium 4.1, Chloride 101, Carbon Dioxide 26.3, Anion Gap 11, BUN 5, Creatinine 0.62 L, EstimCreat Clear Calc 39.50 L, Est GFR (MDRD) Non-Af 88, BUN/Creatinine Ratio 8.1 L, Glucose 99, Hemoglobin A1c 5.7, Calcium 9.5 08/13/24 20:01: POC Glucose 88 08/14/24 04:45: WBC 6.2, RBC 4.17 L, Hgb 12.8, Hct 38.7, MCV 92.8, MCH 30.7, MCHC 33.1, RDW Std Deviation 47.1 H, RDW Coeff of Kate 14.0, Plt Count 200, MPV 10.7, Immature Gran % (Auto) 0.300, Neut % (Auto) 63.9, Lymph % (Auto) 24.7, [place] % (Auto) 8.7, Eos % (Auto) 1.9, Baso % (Auto) 0.5, Absolute Neuts (auto) 4.0, Absolute Lymphs (auto) 1.54, Nucleated RBC % 0, Sodium 140, Potassium 3.8, [id number], Carbon Dioxide 23.5, Anion Gap 12, BUN 5, Creatinine 0.56 L, EstimCreat Clear Calc 39.50 L, Est GFR (MDRD) Non-Af 90, BUN/Creatinine Ratio 8.2 L, Glucose 106 H, Calcium 9.4, Phosphorus 3.0, Magnesium 2.2, Total Bilirubin 0.64,AST 26, ALT 17, Alkaline Phosphatase 123 H, Total Protein 6.2, Albumin 3.9, Globulin 2.3, Albumin/Globulin Ratio 1.7, Triglycerides 70, Cholesterol 217 H, LDL Cholesterol, Calc 126, VLDL Cholesterol 14, HDL Cholesterol 77, Cholesterol/HDL Ratio 2.83, TSH 1.720 Imaging Radiology Impression Brain CT 08/13/24 18:34 IMPRESSION: No acute intracranial finding. Reading Location: [facility] Head/Neck CTA 08/13/24 18:34 IMPRESSION: 1. No large vessel occlusion, aneurysm or AVM. 2. 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 3. Severe cervical spondylosis. Reading Location: [facility] Brain MRI 08/14/24 21:27 IMPRESSION: 1. Mild cerebral atrophy. 2. No evidence of acute intracranial pathology. Reading Location: [place] [address] Active Medications Active Medications Active Medications: Current Medications Generic Name Dose Route Start Last Admin Trade Name Freq PRN Reason Stop Dose Admin Acetaminophen 650 mg 08/13/24 22:09 Acetaminophen 325 Mg Tablet PO Q6H PRN PRN Pain 1-10 Or Fever>100.7 Amitriptyline HCl 10 mg 08/13/24 22:09 08/13/24 23:42 Amitriptyline 10 Mg Tablet PO 10 mg QHS EILEEN Administration Ascorbic Acid 500 mg 08/14/24 08:00 08/14/24 09:03 Ascorbic Acid 500 Mg Tablet PO 500 mg DAILY@0800 EILEEN Administration Atorvastatin Calcium 40 mg 08/13/24 22:09 08/13/24 23:42 Atorvastatin Calcium 40 Mg Tablet PO 40 mg QHS EILEEN Administration Cholecalciferol 125 mcg 08/14/24 10:00 08/14/24 09:02 Cholecalciferol (Vit D3) 125 Mcg Capsule (5,000 Units) PO 125 mcg DAILY EILEEN Administration Clarify Med Order 1 each 08/13/24 22:30 08/14/24 08:06 Clarify Order NOTE Not Given CLARIFY EILEEN Donepezil HCl 10 mg 08/13/24 22:09 08/13/24 23:42 Donepezil Hcl 10 Mg Tablet PO 10 mg QHS EILEEN Administration Enoxaparin Sodium 40 mg 08/14/24 10:00 08/14/24 09:02 Enoxaparin 40 Mg/0.4 Ml Syringe SC 40 mg DAILY EILEEN Administration Fluoxetine HCl 10 mg 08/14/24 10:00 08/14/24 09:03 Fluoxetine 10 Mg Capsule PO 10 mg DAILY EILEEN Administration Folic Acid 2 mg 08/14/24 08:00 08/14/24 09:03 Folic Acid 1 Mg Tablet PO 2 mg BREAKFAST EILEEN Administration Hydralazine HCl 5 mg 08/13/24 22:09 Hydralazine 20 Mg/Ml Vial IV 08/14/24 22:09 Q30M PRN maintain BP parameters with HR <60 Sodium Chloride 250 mls @ 15 mls/hr 08/13/24 22:14 IV .[id number] PRN Saline Flush Sodium Chloride 250 mls @ 15 mls/hr 08/13/24 22:14 IV .[id number] PRN Additional IVPB Infusion Labetalol HCl 10 - 20 mg 08/13/24 22:09 Labetalol 20 Mg/4 Ml Vial IV 08/14/24 22:09 Q10M PRN PRN maintain BP parameters with HR >/=60 Melatonin 3 mg 08/13/24 22:09 Melatonin 3 Mg Tablet PO QHS PRN PRN INSOMNIA Methotrexate 12.5 mg 08/16/24 10:00 Methotrexate 2.5 Mg Tablet PO Lord@1000 [facility] Non-Formulary Medication 1 drp 08/15/24 10:00 Fluorometholone OPHTHALMIC QODAY [facility] Ondansetron HCl 4 mg 08/13/24 22:09 Ondansetron 4 Mg/2 Ml Vial IV Q8H PRN PRN NAUSEA/VOMITING Senna/Docusate Sodium 2 tablet 08/13/24 22:09 Senna/Docusate Sodium 1 Tablet PO BID PRN PRN Constipation Sodium Chloride 10 - 40 ml 08/13/24 22:14 0.9% Saline Lock 10 Ml Syringe IV UD PRN SALINE FLUSH NIHSS NIHSS Nursing Documentation NIHSS Nursing Documentation: NIHSS: Ischemic Stroke/TIA Start: 08/13/24 22:09 Text: For PCU Patients: NIH and Neuro Check every 4 Status: Complete hours, PRN and with change in RN caregiver. Freq: [id number] Protocol: Activity Type Activity Date Activity User E-sign Co-sign Detail Recorded Client Recorded Date Recorded By Document 08/14/24 08:59 KS desktop 08/14/24 09:00 KS 08/14/24 08:59 NIH Stroke Scale [NIHSS] A score of 0 is normal or asymptomatic . Total possible score is 42. Inpatient: RN or Physician to activate a stroke alert for onset of new stroke symptoms or with NIHSS increase >/= 3 points. Following change in neurological status, NIHSS will be performed per physician order or more frequently PRN. -1a. Level of Consciousness 0 - Alert; keenly responsive -1b. LOC Questions 0 - Answers BOTH questions correctly -1c. LOC Commands 0 - Performs BOTH tasks correctly -2. Best Gaze 0 - Normal -3. Visual 0 - No visual loss -4. Facial Palsy 0 - Normal symmetrical movements -5a. Left Arm 0 - No drift; arm holds 90 ( or 45) degrees for full 10 seconds -5b. Right Arm 0 - No drift; arm holds 90 ( or 45) degrees for full 10 seconds -6a. Left Leg 0 - No drift; leg holds 30- degree position for full 5 seconds -6b. Right Leg 0 - No drift; leg holds 30- degree position for full 5 seconds -7. Limb Ataxia 0 - Absent -8. Sensory 0 - Normal; no sensory loss -9. Best Language 0 - No aphasia; normal -10. Dysarthria 0 - Normal -11. Extinction and Inattention 0 - No abnormality -Total 0 Query Text:A score of 0 is normal or asymptomatic. Total possible score is 42 . ED: Notify Physician for NIHSS increase by > / = 3 points. Inpatient: RN or Physician to activate a stroke alert for NIHSS increase of > / = 3 points. Coma Scale [Assess] -Eye Opening Spontaneous -Motor Obeys Commands -Verbal Oriented [Total] -Coma Scale Total 15 08/14/24 1428 Cosigner Signature (if applicable): CC: Dr. Julius Pete, DO; Dr. Edenilson Nicholson, DO~ Signed [facility]06-13-2025 History and physical note Author Darren Beckford [facility] Note Date/Time August 14, 2024 2:51 am [facility] Medical Records Department [address] [place] [id number] H&P Exam - Hospitalist 08/13/246 MR#: [id number] Acct: [id number] Name: ANAYA DE LA O Rep #:[id number] : 1940 84 From: Darren DAVIS PCP: Dr. Edenilson Nicholson, DO Status:AD M CHRISTINE Location: [place] [address] HPI - General General Date of Admission: 08/13/24 Date of Service: 08/13/24 Chief Complaint: left hand and face numbness and tingling HPI Narrative ANAYA DE LA O, is a 84 F with a pmhx of psoriatic arthritis, HTN, anx/dep, and underlying memory issues who presents to the ER with left hand and face numbness and tingling. Initially she woke up with symptoms of numbness and tingling in the left hand. Then later she was cooking and noticed the symptoms again in her hand and then numbness and tingling in the left side of her face. She thinks these lasted for seconds to minutes. This occurred at approximately 1636. She was brought to the ER and found to be HTN with BP 169/88,a CT brain negative for acute process, and CTA head and neck without large vessel occlusions, mild narrowing of the L subclavian artery. Her NIH was 0. Her symptoms are currently completely resolved. She will be kept overnight for TIA workup. [facility] Medical History (Updated 08/13/24 @ 22:14 by SUSAN Moe) DDD (degenerative disc disease) Psoriatic arthritis Home Medications ?Medication ?Instructions ?Recorded ?Last Taken ?Type ascorbic acid (vitamin C) 500 mg 500 mg PO DAILY@0800 SUPPLEMENT 09/07/16 08/12/24 History tablet (Vitamin C) cholecalciferol (vitamin D3) 125 5,000 unit PO DAILY [facility] 09/07/16 09/06/16 History mcg (5,000 unit) capsule coenzyme Q10 100 mg capsule (Co 100 mg PO DAILY SUPPLE MENT 09/07/16 08/12/24 History Q-10) folic acid 1 mg tablet 2 mg PO DAILY SUPPLEMENT 09/1708/12/24 History glutamine 500 mg capsule 500 mg PO DAILY SUPPLEMENT 0 09/07/16 Unknown History (L-Glutamine) lecithin, soy 400 mg capsule 400 mg PO DAILY SUPPLEMEN T 09/07/16 08/12/24 History lutein 20 mg capsule 20 mg PO DAILY SUPPLEMENT 08/12/24 History methotrexate sodium 2.5 mg tablet 12.5 mg PO LORD ARHTRI TIS 09/07/16 08/08/24 History red yeast rice 600 mg capsule 600 mg PO BID SUPPLEMENT 09/07/16 08/12/24 History cyclobenzaprine 10 mg tablet 10 mg PO TID PRN PRN Back 09/11/16 Unknown Rx pain/muscle spasms #10 tabs amitriptyline 10 mg tablet 10 mg PO QHS 08/13/24 Unkno wn History donepezil 10 mg tablet 10 mg PO QHS 08/13/24 Unknow n History fluorometholone 0.1 % eye 1 drp ophthalmic (eye) QODAY 08/13/24 Unknown History drops,suspension fluoxetine 10 mg capsule 10 mg PO DAILY 08/13/24 Unkn own History losartan 25 mg tablet 25 mg PO DAILY 08/13/24 Unkn own History Allergy/AdvReac Type Severity Reaction Status Date / Time Penicillins Allergy Unknown Verified 08/13/24 18:11 meperidine HCl (From Demerol) AdvReac Intermediate Vomiting Verified 08/13/24 18:11 sertraline HCl (From Zoloft) AdvReac Intermediate Other Verified 08/13/24 18:11 acetaminophen (From AdvReac Mild Vomiting Verified 08/13/24 18:11 Darvocet-N 100) caffeine AdvReac Mild Other Verified 08/13/24 18:11 codeine AdvReac Mild Vomiting Verified 08/13/24 18:11 ephedrine AdvReac Mild Other Verified 08/13/24 18:11 propoxyphene napsylate (From AdvReac Mild Vomiting Verified 08/13/24 18:11 Darvocet-N 100) tramadol AdvReac Mild Vomiting Verified 08/13/24 18:11 ampicillin AdvReac Unknown Unknown Verified 08/13/24 18:11 griseofulvin AdvReac Unknown Unknown Verified 08/13/24 18:11 guaifenesin (From Entex LA) AdvReac Unknown Unknown Verified 08/13/24 18:11 hydrocodone bitartrate (From AdvReac Unknown Unknown Verified 08/13/24 18:11 Vicodin) phenylephrine HCl (From AdvReac Unknown Unknown Verified 08/13/24 18:11 Entex LA) phenylpropanolamine HCl AdvReac Unknown Unknown Verified 08/13/24 18:11 (From Entex LA) Sulfa (Sulfonamide AdvReac Unknown Unknown Verified 08/13/24 18:11 Antibiotics) Family History Father Cancer Surgical History (Updated 08/13/24 @ 22:14 by Darren DAVIS PA) History of bilateral knee arthroplasty History of carpal tunnel release H/O: hysterectomy Social History Smoking Status: Never smoker ROS Constitutional Constitutional: Denies chills, fatigue or fever(s) Eyes Eyes: Denies blurry vision ENT HEENT: Denies abnormal hearing, nasal congestion or sore throat Cardiovascular Cardiovascular: Denies chest pain or edema Respiratory/Chest Respiratory/Chest: Denies cough or dyspnea Gastrointestinal Gastrointestinal: Denies abdominal pain, diarrhea or vomiting Genitourinary Genitourinary: Denies burning urination Musculoskeletal Musculoskeletal: Reports back pain; Denies arthralgias Neurologic Neurologic: Denies abnormal gait Psychiatric Psychiatric: Reports anxiety and depression Endocrine Endocrinology: Denies change in body appearance Hematologic/Lymphatic Hematologic/Lymphatic: Denies anemia Allergic/Immunologic Allergic/Immunologic: Denies rhinitis Vital Signs Vital Signs Vital Signs: 08/13/24 17:24 08/13/24 19:24 08/13/24 21:00 Temperature 98.3 F Temperature Source Oral Pulse Rate 63 47 L 50 L Respiratory Rate 16 18 15 Blood Pressure 169/88 H 153/66 H 165/73 H Blood Pressure Mean 115 95 103 Pulse Ox 100 98 100 Oxygen Delivery Method Room Air Room Air 08/13/24 21:12 Temperature 98 F Temperature Source Pulse Rate 59 L Respiratory Rate 14 Blood Pressure 165/73 H Blood Pressure Mean 103 Pulse Ox 100 Oxygen Delivery Method Weight Weight: 55 kg Body Mass Index (BMI) 22.8 Physical Exam Const alert, oriented x3 and no apparent distress General Appearance: cooperative HEENT normocephalic and head/scalp atraumatic Eyes PERRL and EOMs intact bilaterally Neck no lymphadenopathy Resp normal respiratory effort and clear to auscultation bilaterally Cardio regular rate, regular rhythm and no murmurs GI normal to inspection, nondistended, normoactive bowel sounds, soft to palpation and non-tender Extremity normal to inspection and full ROM Neuro oriented x3 Sensorium / Orientation: awake, alert, oriented to person, oriented to place andoriented to time Psych affect normal Results Lab / Micro Data 08/13/24 18:49 08/13/24 18:49 Labs: Laboratory Results - last 24 hr 08/13/24 18:49: WBC 6.4, RBC 4.26, Hgb 13.0, Hct 40.3, MCV 94.6, MCH 30.5, MCHC 32.3, RDW Std Deviation 48.3 H, RDW Coeff of Kate 14.3, Plt Count 200, MPV 10.7, Immature Gran % (Auto) 0.300, Neut % (Auto) 69.4, Lymph % (Auto) 21.3, [place] % (Auto) 7.1, Eos % (Auto) 1.3, Baso % (Auto) 0.6, Absolute Neuts (auto) 4.4, Absolute Lymphs (auto) 1.35, Nucleated RBC % 0, Sodium 138, Potassium 4.1, Chloride 101, Carbon Dioxide 26.3, Anion Gap 11, BUN 5, Creatinine 0.62 L, EstimCreat Clear Calc 39.50 L, Est GFR (MDRD) Non-Af 88, BUN/Creatinine Ratio 8.1 L, Glucose 99, Calcium 9.5 08/13/24 20:01: POC Glucose 88 Imaging Radiology Impression Brain CT 08/13/24 18:34 IMPRESSION: No acute intracranial finding. Reading Location: [facility] Head/Neck CTA 08/13/24 18:34 IMPRESSION: 1. No large vessel occlusion, aneurysm or AVM. 2. 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 3. Severe cervical spondylosis. Reading Location: [facility] Assessment & Plan Assessment/Plan (1) TIA (transient ischemic attack): PLAN: 1. TIA - Brief episode left hand and left facial numbness and tingling, atthis point completely resolved. NIH [address] brain negative, CTA head andneck no large vessel disease, mild narrowing of the left subclavian artery. EKG with sinus carmelita. Pt will be placed in observation on telemetry. Obtain MRI brain, echocardiogram,neuro consult, permissive HTN Check lipids, neuro consult, tsh, a1c, mag, phos PT/OT/ST evals Start aspirin, statin 2. Hx psoriatic arthritis - on MTX, folic acid 3. Hx anx/dep - fluoxetine, amitryptaline 4. DVT ppx: lovenox Code status: Full code. This patient was seen by Darren Beckford PA-C under the supervision of Doctor Adelso 08/13/24 6512 <Electronically signed by Darren DAVIS> Cosigner Signature (if applicable): CC: SUSAN Tavares; Dr. Edenilson Nicholson DO; Dr. Ramona Darden DO~ Signed ADDENDUM by Dr. Ramona Darden DO on 08/14/24 at 0251 Addendum Patient was seen in conjunction with SUSAN Tavares and agree with above. Please see below addendum for my additions to treatment plan Patient is an 84-year-old white female with a history of essential hypertension who presented to emergency department at [facility] on 08/13/2024with the chief complaint of left-sided paresthesias in the left side of her faceand left upper extremity that started around 4:30 in the evening. She was cooking dinner at the time and reported that the symptoms lasted about 30 minutes. NIH in the emergency department was 0. When she had symptoms she called her PCP office and they recommended evaluation in the emergency department for stroke. She has no history of stroke or TIA. At the time of my evaluation she was feeling 100% better and was frustrated she was not able to go home at that time. Vital signs on presentation showed temperature of 98.3, heart rate 63, respiratory 16, blood pressure was 169/88 and pulse ox 100% room air. CBC was unremarkable. Chemistry panel was unremarkable. Glucose was 99. CT the brain showed no acute intercranial finding. CTA of the head and neck showed no large vessel occlusion aneurysm or AVM with mild narrowing of the left subclavian artery off its origin and severe cervical spondylosis. Physical Exam: Const Elderly, white female, sitting up in bed, appears comfortable, nontoxic, husbandat bedside, alert, oriented x3 and no apparent distress General Appearance: cooperative HEENT normocephalic and head/scalp atraumatic, Mallampati 2, bridge in place for upper, no thrush Eyes PERRL and EOMs intact bilaterally, no scleral icterus, no conjunctival pallor Neck no lymphadenopathy, no carotid bruit, trachea midline, no thyroid enlargement Resp normal respiratory effort and clear to auscultation bilaterally Cardio regular rate, regular rhythm and no murmurs, gallop, or rub GI normal to inspection, nondistended, normoactive bowel sounds, soft to palpation and non-tender Extremity normal to inspection and full ROM, pedal pulses and radial pulses are 2+ Neuro oriented x3 Sensorium / Orientation: awake, alert, oriented to person, oriented to place andoriented to time, no focal deficits, sensation is intact, cranial nerves II through XII are intact Psych affect normal, very pleasant, makes good eye contact and interacts appropriately Assessment and Plan Left hand paresthesias/left-sided facial paresthesias - Highly suspect TIA - CT of the brain and CTA of the head and neck are essentially unremarkable - Ongoing NIH per stroke protocol - Check MRI - Check echocardiogram - Check lipids next-check hemoglobin A1c - check TSH in a.m. - PT/OT/speech therapy eval's - Start aspirin 81 mg - Start statin 40 mg - Neurology consultation Hypertension with persistently elevated blood pressure - Hold home losartan 25 mg daily - will allow for permissive hypertension at this time - If remains elevated may need additional antihypertensives or up titration of losartan at the time of discharge - Goal blood pressure should be less than 130/80 Hyperlipidemia - Patient on red yeast rice at baseline--> hold for admission and anticipate discontinue at discharge - Check lipid panel - Patient willing to start statin with atorvastatin 40 mg History of psoriatic arthritis - Continue home methotrexate and folic acid as prescribed Anxiety/depression - Continue home fluoxetine Insomnia - Continue home amitriptyline DVT prophylaxis - Lovenox subcu daily CODE STATUS - Full code as verified at the time of admission Visit Charges Inpatient E&M: 33307 Init Hosp L2 08/14/24 0252<Electronically signed by Ramona Darden DO> Cosigner Signature (if applicable): cc: SUSAN Tavares; Dr. Edenilson Nicholson DO; Dr. Ramona Darden DO ~* Signed [facility] Work Phone: [phone] [phone] History and physical note [facility] Medical Records Department [address] [place] [address] H&P Exam - Hospitalist 08/13/242205 MR#: [id number] Acct: [id number] Name: ANAYA DE LA O Rep #:[id number] : 1940 84 From: Darren DAVIS PCP: Dr. Edenilson Nicholson, DO Status:AD M CHRISTINE [facility] HPI - General General Date of Admission: 08/13/24 Date of Service: 08/13/24 Chief Complaint: left hand and face numbness and tingling HPI Narrative ANAYA DE LA O, is a 84 F with a pmhx of psoriatic arthritis, HTN, anx/dep, and underlying memoryissues who presents to the ER with left hand and face numbness and tingling. Initially she woke up with symptoms of numbness and tingling in the left hand. Then later she was cooking and noticed the symptoms again in her hand and then numbness and tingling in the left side of her face. She thinks these lasted for seconds to minutes. This occurred at approximately 1636. She was brought to the ER and found to be HTN with BP 169/88,a CT brain negative for acute process, and CTA head and neck without large vessel occlusions, mild narrowing of the L subclavian artery. Her NIH was 0. Her symptoms are currently completely resolved. She will be kept overnight for TIA workup. [facility] Medical History (Updated 08/13/24 @ 22:14 by SUSAN Moe) DDD (degenerative disc disease) Psoriatic arthritis Home Medications ?Medication ?Instructions ?Recorded ?Last Taken ?Type ascorbic acid (vitamin C) 500 mg 500 mg PO DAILY@0800 SUPPLEMENT 09/07/16 08/12/24 History tablet (Vitamin C) cholecalciferol (vitamin D3) 125 5,000 unit PO DAILY [facility] 09/07/16 09/06/16 History mcg (5,000 unit) capsule coenzyme Q10 100 mg capsule (Co 100 mg PO DAILY SUPPLE MENT 09/07/16 08/12/24 History Q-10) folic acid 1 mg tablet 2 mg PO DAILY SUPPLEMENT 09/1708/12/24 History glutamine 500 mg capsule 500 mg PO DAILY SUPPLEMENT 0 09/07/16 Unknown History (L-Glutamine) lecithin, soy 400 mg capsule 400 mg PO DAILY SUPPLEMEN T 09/07/16 08/12/24 History lutein 20 mg capsule 20 mg PO DAILY SUPPLEMENT 08/12/24 History methotrexate sodium 2.5 mg tablet 12.5 mg PO LORD ARHTRI TIS 09/07/16 08/08/24 History red yeast rice 600 mg capsule 600 mg PO BID SUPPLEMENT 09/07/16 08/12/24 History cyclobenzaprine 10 mg tablet 10 mg PO TID PRN PRN Back 09/11/16 Unknown Rx pain/muscle spasms #10 tabs amitriptyline 10 mg tablet 10 mg PO QHS 08/13/24 Unkno wn History donepezil 10 mg tablet 10 mg PO QHS 08/13/24 Unknow n History fluorometholone 0.1 % eye 1 drp ophthalmic (eye) QODAY 08/13/24 Unknown History drops,suspension fluoxetine 10 mg capsule 10 mg PO DAILY 08/13/24 Unkn own History losartan 25 mg tablet 25 mg PO DAILY 08/13/24 Unkn own History Allergy/AdvReac Type Severity Reaction Status Date / Time Penicillins Allergy Unknown Verified 08/13/24 18:11 meperidine HCl (From Demerol) AdvReac Intermediate Vomiting Verified 08/13/24 18:11 sertraline HCl (From Zoloft) AdvReac Intermediate Other Verified 08/13/24 18:11 acetaminophen (From AdvReac Mild Vomiting Verified 08/13/24 18:11 Darvocet-N 100) caffeine AdvReac Mild Other Verified 08/13/24 18:11 codeine AdvReac Mild Vomiting Verified 08/13/24 18:11 ephedrine AdvReac Mild Other Verified 08/13/24 18:11 propoxyphene napsylate (From AdvReac Mild Vomiting Verified 08/13/24 18:11 Darvocet-N 100) tramadol AdvReac Mild Vomiting Verified 08/13/24 18:11 ampicillin AdvReac Unknown Unknown Verified 08/13/24 18:11 griseofulvin AdvReac Unknown Unknown Verified 08/13/24 18:11 guaifenesin (From Entex LA) AdvReac Unknown Unknown Verified 08/13/24 18:11 hydrocodone bitartrate (From AdvReac Unknown Unknown Verified 08/13/24 18:11 Vicodin) phenylephrine HCl (From AdvReac Unknown Unknown Verified 08/13/24 18:11 Entex LA) phenylpropanolamine HCl AdvReac Unknown Unknown Verified 08/13/24 18:11 (From Entex LA) Sulfa (Sulfonamide AdvReac Unknown Unknown Verified 08/13/24 18:11 Antibiotics) Family History Father Cancer Surgical History (Updated 08/13/24 @ 22:14 by Darren DAVIS PA) History of bilateral knee arthroplasty History of carpal tunnel release H/O: hysterectomy Social History Smoking Status: Never smoker ROS Constitutional Constitutional: Denies chills, fatigue or fever(s) Eyes Eyes: Denies blurry vision ENT HEENT: Denies abnormal hearing, nasal congestion or sore throat Cardiovascular Cardiovascular: Denies chest pain or edema Respiratory/Chest Respiratory/Chest: Denies cough or dyspnea Gastrointestinal Gastrointestinal: Denies abdominal pain, diarrhea or vomiting Genitourinary Genitourinary: Denies burning urination Musculoskeletal Musculoskeletal: Reports back pain; Denies arthralgias Neurologic Neurologic: Denies abnormal gait Psychiatric Psychiatric: Reports anxiety and depression Endocrine Endocrinology: Denies change in body appearance Hematologic/Lymphatic Hematologic/Lymphatic: Denies anemia Allergic/Immunologic Allergic/Immunologic: Denies rhinitis Vital Signs Vital Signs Vital Signs: 08/13/24 17:24 08/13/24 19:24 08/13/24 21:00 Temperature 98.3 F Temperature Source Oral Pulse Rate 63 47 L 50 L Respiratory Rate 16 18 15 Blood Pressure 169/88 H 153/66 H 165/73 H Blood Pressure Mean 115 95 103 Pulse Ox 100 98 100 Oxygen Delivery Method Room Air Room Air 08/13/24 21:12 Temperature 98 F Temperature Source Pulse Rate 59 L Respiratory Rate 14 Blood Pressure 165/73 H Blood Pressure Mean 103 Pulse Ox 100 Oxygen Delivery Method Weight Weight: 55 kg Body Mass Index (BMI) 22.8 Physical Exam Const alert, oriented x3 and no apparent distress General Appearance: cooperative HEENT normocephalic and head/scalp atraumatic Eyes PERRL and EOMs intact bilaterally Neck no lymphadenopathy Resp normal respiratory effort and clear to auscultation bilaterally Cardio regular rate, regular rhythm and no murmurs GI normal to inspection, nondistended, normoactive bowel sounds, soft to palpation and non-tender Extremity normal to inspection and full ROM Neuro oriented x3 Sensorium / Orientation: awake, alert, oriented to person, oriented to place andoriented to time Psych affect normal Results Lab / Micro Data 08/13/24 18:49 08/13/24 18:49 Labs: Laboratory Results - last 24 hr 08/13/24 18:49: WBC 6.4, RBC 4.26, Hgb 13.0, Hct 40.3, MCV 94.6, MCH 30.5, MCHC 32.3, RDW Std Deviation 48.3 H, RDW Coeff of Kate 14.3, Plt Count 200, MPV 10.7, Immature Gran % (Auto) 0.300, Neut % (Auto) 69.4, Lymph % (Auto) 21.3, [place] % (Auto) 7.1, Eos % (Auto) 1.3, Baso % (Auto) 0.6, Absolute Neuts (auto) 4.4, Absolute Lymphs (auto) 1.35, Nucleated RBC % 0, Sodium 138, Potassium 4.1, Chloride 101, Carbon Dioxide 26.3, Anion Gap 11, BUN 5, Creatinine 0.62 L, EstimCreat Clear Calc 39.50 L, Est GFR (MDRD) Non-Af 88, BUN/Creatinine Ratio 8.1 L, Glucose 99, Calcium 9.5 08/13/24 20:01: POC Glucose 88 Imaging Radiology Impression Brain CT 08/13/24 18:34 IMPRESSION: No acute intracranial finding. Reading Location: [facility] Head/Neck CTA 08/13/24 18:34 IMPRESSION: 1. No large vessel occlusion, aneurysm or AVM. 2. 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 3. Severe cervical spondylosis. Reading Location: [facility] Assessment & Plan Assessment/Plan (1) TIA (transient ischemic attack): PLAN: 1. TIA - Brief episode left hand and left facial numbness and tingling, atthis point completely resolved. NIH [address] brain negative, CTA head andneck no large vessel disease, mild narrowing of the left subclavian artery. EKG with sinus carmelita. Pt will be placed in observation on telemetry. Obtain MRI brain, echocardiogram,neuro consult, permissive HTN Check lipids, neuro consult, tsh, a1c, mag, phos PT/OT/ST evals Start aspirin, statin 2. Hx psoriatic arthritis - on MTX, folic acid 3. Hx anx/dep - fluoxetine, amitryptaline 4. DVT ppx: lovenox Code status: Full code. This patient was seen by Darren Beckford PA-C under the supervision of Doctor Adelso 08/13/24 2924 Cosigner Signature (if applicable): CC: SUSAN Tavares; Dr. Edenilson Nicholson DO; Dr. Ramona Darden DO~ Signed ADDENDUM by Dr. Ramona Darden DO on 08/14/24 at 0251 Addendum Patient was seen in conjunction with SUSAN Tavares and agree with above. Please see below addendum for my additions to treatment plan Patient is an 84-year-old white female with a history of essential hypertension who presented to emergency department at [facility] on 08/13/2024with the chief complaint of left-sided paresthesias in the left side of her faceand left upper extremity that started around 4:30 in the evening. She was cooking dinner at the time and reported that the symptoms lasted about 30 minutes. NIH in the emergency department was 0. When she had symptoms she called her PCP office and they recommended evaluation in the emergency department for stroke. She has no history of stroke or TIA. At the time of my evaluation she was feeling 100% better and was frustrated she was not able to go home at that time. Vital signs on presentation showed temperature of 98.3, heart rate 63, respiratory 16, blood pressure was 169/88 and pulse ox 100% room air. CBC was unremarkable. Chemistry panel was unremarkable. Glucose was 99. CT the brain showed no acute intercranial finding. CTA of the head and neck showed no large vessel occlusion aneurysm or AVM with mild narrowing of the left subclavian artery off its origin and severe cervical spondylosis. Physical Exam: Const Elderly, white female, sitting up in bed, appears comfortable, nontoxic, husbandat bedside, alert, oriented x3 and no apparent distress General Appearance: cooperative HEENT normocephalic and head/scalp atraumatic, Mallampati 2, bridge in place for upper, no thrush Eyes PERRL and EOMs intact bilaterally, no scleral icterus, no conjunctival pallor Neck no lymphadenopathy, no carotid bruit, trachea midline, no thyroid enlargement Resp normal respiratory effort and clear to auscultation bilaterally Cardio regular rate, regular rhythm and no murmurs, gallop, or rub GI normal to inspection, nondistended, normoactive bowel sounds, soft to palpation and non-tender Extremity normal to inspection and full ROM, pedal pulses and radial pulses are 2+ Neuro oriented x3 Sensorium / Orientation: awake, alert, oriented to person, oriented to place andoriented to time, no focal deficits, sensation is intact, cranial nerves II through XII are intact Psych affect normal, very pleasant, makes good eye contact and interacts appropriately Assessment and Plan Left hand paresthesias/left-sided facial paresthesias - Highly suspect TIA - CT of the brain and CTA of the head and neck are essentially unremarkable - Ongoing [facility] per stroke protocol - Check MRI - Check echocardiogram - Check lipids next-check hemoglobin A1c - check TSH in a.m. - PT/OT/speech therapy eval's - Start aspirin 81 mg - Start statin 40 mg - Neurology consultation Hypertension with persistently elevated blood pressure - Hold home losartan 25 mg daily - will allow for permissive hypertension at this time - If remains elevated may need additional antihypertensives or up titration of losartan at the timeof discharge - Goal blood pressure should be less than 130/80 Hyperlipidemia - Patient on red yeast rice at baseline--> hold for admission and anticipate discontinue at discharge - Check lipid panel - Patient willing to start statin with atorvastatin 40 mg History of psoriatic arthritis - Continue home methotrexate and folic acid as prescribed Anxiety/depression - Continue home fluoxetine Insomnia - Continue home amitriptyline DVT prophylaxis - Lovenox subcu daily CODE STATUS - Full code as verified at the time of admission Visit Charges Inpatient E&M: 84600 Init Hosp L2 08/14/24 0253 Cosigner Signature (if applicable): cc: SUSAN Tavares; Dr. Edenilson Nicholson, DO; Dr. Ramona Darden, DO ~* Signed [facility]06-12-2025 Evaluation note* Diagnosis Onset Date Resolution Status Admit Date TIA (transient ischemic attack) acut josé luis August 13, 2024 9:21pm [facility] Work Phone: 1(954) 218-228106-12-2025 Radiology Diagnostic study note [facility] Imaging Services [address] [place], [place] [address] CTA Head AND Neck W/ Contrast MR#: [id number] Acct: [id number] Name: ANAYA DE LA O Rep #: [id number] : 1940 F 84 From: Adriana Chan MD PCP: Dr. Edenilson Nicholson DO Status: RE G ER Study:CTA Head AND Neck W/ Contrast Date of E xam: 08/13/24 Exam# [id number] Ordering Dr: Lissett Guzmán PROCEDURE: CTA HEAD AND NECK W/ CONTRAST 08/13/2024 REASON FOR EXAM: TIA, LEFT-SIDED PARESTHESIAS TECHNIQUE: CTA imaging of the head and neck from the aortic arch to the skull vertex with out contrast and with intravenous contrast. Multiplanar and multisequence images were obtained. CONTRAST: Isovue 370 VOLUME: 100 mL One or more dose reduction techniques were used (e.g., Automated exposure control, adjustment of the mA and/or kV according to patient size, use of iterative reconstruction technique). RADIATION DOSE SUMMARY: CTDlvol: 45 mGy DLP: 600 mGycm COMPARISON: Same-day CT head. FINDINGS: See same day CT head for discussion of nonvascular findings. CTA neck: Standard three-vessel aortic arch with calcific plaque of the left subclavian artery at its origin,resulting in mild focal narrowing. The bilateral vertebral arteries are widely patent at their origins. Diminutive/hypoplastic left vertebral artery. The bilateral cervical carotid arteries are widely patent without focal narrowing or occlusion by NASCET criteria. CTA head: The bilateral carotid siphons are widely patent. The bilateral anterior, middleand posterior cerebral arteries are widely patent. No aneurysm or AVM. Major venous structures: Unremarkable. Other findings: Prior dental restorations. Severe cervical spondylosis. Moderate arthrosis of the atlantoaxial joint. CT/CTA Head AND Neck W/ Contrast IMPRESSION: 1. No large vessel occlusion, aneurysm or AVM. 2. 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 3. Severe cervical spondylosis. Reading Location: [facility] CC: Dr. Edenilson Nicholson DO; SUSAN Cervantes ~ Medical Staff Manager: Signed [facility]06-12-2025 Radiology Diagnostic study note [facility] Imaging Services [address] [place] [address] Brain/Head without Contrast MR#: [id number] Acct: [id number] Name: ANAYA DE LA O Rep #: [id number] : 1940 F 84 From: Adriana Chan MD PCP: Dr. Edenilson Nicholson DO Status: RE G ER Study:Brain/Head without Contrast Date of Exa m: 08/13/24 Exam# [id number] Ordering Dr: Lissett Guzmán EXAM: BRAIN/HEAD WITHOUT CONTRAST CLINICAL HISTORY: 84 y/o F with LEFT-SIDED PARESTHESIAS, RESOLVED. COMPARISON: None. TECHNIQUE: Routine CT imaging of the head without IV contrast. Additional multiplanar reformats were obtained. Dose reduction techniques were used including intermediate exposure control (AEC),iterative reconstruction technique, and/or mA and/or KV dose adjustments based on patient's size. FINDINGS: The ventricles, sulci and cisterns are mildly prominent, compatible with patientage. There is no evidence of intracranial hemorrhage or herniation. There is no midline shift, mass effect, or extra-axial collection. Mild scattered supratentorial white matter hypodensities. The orbits, visualized paranasal sinuses and mastoids are unremarkable. No acute calvarial fracture or scalp hematoma. Small soft tissue lesion along the right cranial vertex, likely a sebaceous cyst. CT/Brain/Head without Contrast IMPRESSION: No acute intracranial finding. Reading Location: [facility] CC: Dr. Edenilson Nicholson DO; SUSAN Cervantes ~ Medical Staff Manager: Signed [facility]06-12-2025 Telephone encounter Note* Telephone Encounter - Yi Jones RN - 08/13/2024 4:34 PM EDT Patient call in for left sided weakness and numbness that just started. Patient states that her armis falling asleep just sitting there. Patient reports that she is also having issues with her left leg. Nurse Triage assessment completed with protocol recommending for disposition of Call EMS now. Patient states that she will call her daughter and let them know. Called and spoke with daughter Codie syed her know that patient was experiencing Left arm/leg numbness and weakness. Codie voiced understanding. Care advice reviewed with patient, patient stated understanding. Reason for Disposition [1] Numbness (i.e., loss of sensation) of the face, arm / hand, or leg / foot on one side of the body AND [2] sudden onset AND [3] present now Answer Assessment - Initial Assessment Questions 1. SYMPTOM: Weakness and Numbness to Left Arm 2. ONSET: Patient states that this has just started. 3. LAST NORMAL: Few minutes ago 4. PATTERN Constant and Present now. 5. CARDIAC SYMPTOMS: Denies 6. NEUROLOGIC SYMPTOMS: Left Leg is also weak and numb 7. OTHER SYMPTOMS: Denies other symptoms Protocols used: Neurologic Vdiglxb-ILHDX-KB [facility]06-12-2025 Miscellaneous Notes* Telephone Encounter - Yi Jones RN - 08/13/2024 4:34 PM EDT Patient call in for left sided weakness and numbness that just started. Patient states that her armis falling asleep just sitting there. Patient reports that she is also having issues with her left leg. Nurse Triage assessment completed with protocol recommending for disposition of Call EMS now. Patient states that she will call her daughter and let them know. Called and spoke with daughter Codie syed her know that patient was experiencing Left arm/leg numbness and weakness. Codie voiced understanding. Care advice reviewed with patient, patient stated understanding. Reason for Disposition [1] Numbness (i.e., loss of sensation) of the face, arm / hand, or leg / foot on one side of the body AND [2] sudden onset AND [3] present now Answer Assessment - Initial Assessment Questions 1. SYMPTOM: Weakness and Numbness to Left Arm 2. ONSET: Patient states that this has just started. 3. LAST NORMAL: Few minutes ago 4. PATTERN Constant and Present now. 5. CARDIAC SYMPTOMS: Denies 6. NEUROLOGIC SYMPTOMS: Left Leg is also weak and numb 7. OTHER SYMPTOMS: Denies other symptoms Protocols used: Neurologic Ckhqwox-POSLK-SP documented in this encounterOhio[facility]06-[facility]25 NoteHNO ID: [id number] Author: AMERICA MENDEZ APRN.IS ARCHITECT Service: ? Author Type: Nurse Practitioner Type: Progress Notes Filed: 08/08/2024 14:21 Note Text: This note was created using [employer] [address]. Subjective Anaya D eLa O is a 84 year old female. HPI [...] PCP if symptoms not improving America Mendez [facility]N.[facility]06[facility] History of Present illness Narrative* America Mendez APRN.KEVIN - 08/08/2024 2:19 PM EDT This note was created using [employer]. Subjective Anaya De La O is a 84 year old female. HPI [...] improving America Mendez APRN.KEVIN documented in this encounterOhiohealth O'[facility]06-07-2025 Instructions* Patient Instructions* America Mendez APRN.CNP - 08/08/2024 2:18 PM EDT I feel that your presentation today is most consistent with some sort of an insect bite or sting. Irecommend that you use your home Claritin for symptomatic relief. I do suspect that symptoms shouldresolve over the next several days. Please follow-up with your family doctor if symptoms are not improving. documented in this encounterOhiohealth O[facility]06-07-2025 Telephone encounter Note * Telephone Encounter - Nell Barnett RN - 08/08/2024 12:01 PM EDT Pt called in and reports she was out side and didn't have sunscreen on and got a blister on her cheek. Pt reports she picked the scab off. I told her if she were worried about infection to come into [facility] they are open until 330. Nell Barnett RN [facility]06-07-2025 Miscellaneous Notes* Telephone Encounter - Nell Barnett RN - 08/08/2024 12:01 PM EDT Pt called in and reports she was out side and didn't have sunscreen on and got a blister on her cheek. Pt reports she picked the scab off. I told her if she were worried about infection to come into [facility] they are open until 330. Nell Barnett RN documented in this encounterOhiohealth O[facility]06-05-2025 Telephone encounter Note * Telephone Encounter - Jade Escalante LPN - 08/06/2024 1:02 PM EDT Patient returned call and went over results, notes from express care provider with understanding. [facility]06-05-[facility] Miscellaneous Notes* Telephone Encounter - Jade Escalante LPN - 08/06/2024 1:02 PM EDT Patient returned call and went over results, notes from express care provider with understanding. * Telephone Encounter - Jade Escalante LPN - 08/06/2024 12:53 PM EDT Phoned patient left message to return call and ask to speak to a nurse. * Telephone Encounter - Kathryn Pearson APRN.CNP - 08/05/2024 5:56 PM EDT Urine culture negative for bacterial growth. She can follow up with PCP for continued symptoms. Please advise documented in this encounterOhiohealth O[facility]06-05-2025 Telephone encounter Note * Telephone Encounter - Jade Escalante LPN - 08/06/2024 12:53 PM EDT Phoned patient left message to return call and ask to speak to a nurse. [facility]06-04-[facility] Telephone encounter Note* Telephone Encounter - Kathryn Pearson APRN.CNP - 08/05/2024 5:56 PM EDT Urine culture negative for bacterial growth. She can follow up with PCP for continued symptoms. Please advise [facility] Work Phone: 1(834) 796-243806-03-2025 NoteHNO ID: [id number] Author: KYM LEWIS PA Service: ? Author Type: Physician Laundry Folder Type: Progress Notes Filed: 08/04/2024 16:02 Note Text: [facility] Subjective Anaya De La O is a 84 year old female. Patient [...] 1-2 days with culture results. Recording using BrightEdge software for draft documentation of the visit was discussed with the patient/authorized sales representative printing supplies; all questions welcomed and answered. Patient/authorized sales representative printing supplies agreed to proceed History and Record Review External record(s) reviewed: prior outpatient record. Differential Diagnoses - urinary frequency is more likely for the following reason(s): suggested by HANDP - uti is less likely for the following reason(s): laboratory studies not suggestive Disposition The patient was discharged. [facility]06-[facility] History of Present illness Narrative* Kym Lewis PA - 08/04/2024 4:00 PM EDT [facility] Subjective Anaya De La O is a 84 year old female. Patient [...] Objective BP 102/62 Pulse 64 Temp 36.5 C (97.7 F) Resp 16 Wt 55.6 kg (122 lb 9.2 oz) SpO2 97% BMI25.62 kg/m Physical Exam Vitals reviewed. Constitutional: General: She [...] 1-2 days with culture results. Recording using BrightEdge software for draft documentation of the visit was discussed with the patient/authorized sales representative printing supplies; all questions welcomed and answered. Patient/authorized sales representative printing supplies agreed to proceed History and Record Review External record(s) reviewed: prior outpatient record. Differential Diagnoses - urinary frequency is more likely for the following reason(s): suggested by H&P - uti is less likely for the following reason(s): laboratory studies not suggestive Disposition The patient was discharged. Procedures documented in this encounterOhiohealth O'[facility]06-02-2025 Telephone encounter Note * Telephone Encounter - Payal Godoy RN - 08/03/2024 2:28 PM EDT Informed patient via telephone of Dr. Romero's review and recommendations. Patient verbalized understanding and requested that the office call back and leave same spiel on her voicemail for her spouse to review. Voicemail left per request. Patient to contact office if/when ready to schedule injection procedure. [facility]06-02-2025 Miscellaneous Notes* Telephone Encounter - Payal Godoy RN - 08/03/2024 2:28 PM EDT Informed patient via telephone of Dr. Romero's review and recommendations. Patient verbalized understanding and requested that the office call back and leave same spiel on her voicemail for her spouse to review. Voicemail left per request. Patient to contact office if/when ready to schedule injection procedure. * Telephone Encounter - Mary Keith APRN.CNP - 08/03/2024 2:03 PM EDT Injection order signed off * Telephone Encounter - Payal Godoy RN - 08/03/2024 1:[address] Romero reviewed patient's lumbar MRI. Lumbar MRI shows: Scoliosis Spinal stenosis (narrowing of the spinal canal placing pressure on the spinal cord and nerves) at L3-4, L4-5 Dr. Romero recommends a left L4-5 lumbar transforaminal epidural steroid injection. Injection order pended for provider review. Routing to provider. Office to contact patient via telephone once injection order placed. documented in this encounterOhiohealth O[facility]06-02-2025 Telephone encounter Note * Telephone Encounter - Mary Keith APRN.CNP - 08/03/2024 2:03 PM EDT Injection order signed off [facility] Work Phone: 1(745) 743-901406-02-2025 Telephone encounter Note* Telephone Encounter - Payal Godoy RN - 08/03/2024 1:[address] Romero reviewed patient's lumbar MRI. Lumbar MRI shows: Scoliosis Spinal stenosis (narrowing of the spinal canal placing pressure on the spinal cord and nerves) at L3-4, L4-5 Dr. Romero recommends a left L4-5 lumbar transforaminal epidural steroid injection. Injection order pended for provider review. Routing to provider. Office to contact patient via telephone once injection order placed. [facility]05-28[facility] History of Present illness Narrative* Ines Benton RT(R) - 07/29/2024 8:00 AM EDT Radiology Service Progress Note PATIENT NAME: Anaya De La O DATE OF SERVICE: July 29, 2024 TIME: 8:40 AM PATIENT IDENTITY VERIFICATION COMPLETED USING TWO (2) IDENTIFIERS: Name and Date of confirmedby patient verbally. FALL SCREENING: Has the patient had 2 falls in the last year or 1 fall with injury or currently using an Ambulatory Assistive Device (Walker, Cane, Wheelchair, Crutches, etc.)? No PATIENT GENDER DATA: Assigned female at . status: : No status:NO. PATIENT RELEVANT IMPLANT DATA REVIEWED: Yes PATIENT PRESENTS WITH AN IMPLANTABLE OR ATTACHED TUBE CUTTER: No RADIOLOGY DEPARTMENT: MR; Exam(s) Completed: Spine: Lumbar spine. Lavender Administered: No PERIPHERAL IV DATA: Not applicable SIGNED BY: RT Julissa(R) July 29, 2024 8:40 AM documented in this encounterOhiohealth O'[facility]05-28-2025 NoteHNO ID: [id number] Author: INES BENTON RT(R) Service: ? Author Type: Technologist Type: Progress Notes Filed: 07/29/2024 08:41 Note Text: Radiology Service Progress Note PATIENT NAME: Anaya De La O DATE OF SERVICE: July 29, 2024 TIME: [...] PATIENT PRESENTS WITH AN IMPLANTABLE OR ATTACHED TUBE CUTTER: No RADIOLOGY DEPARTMENT: MR; Exam(s) Completed: Spine: Lumbar spine. Lavender Administered: No PERIPHERAL IV DATA: Not applicable SIGNED BY: JENNIE Costa) July 29, 2024 8:40 [facility]05-22-2025 NoteHNO ID: [id number] Author: MARY KEITH APRN.IS ARCHITECT Service: ? Author Type: Nurse Practitioner Type: Progress Notes Filed: 07/23/2024 15:13 Note Text: [facility] Date: July 23, 2024 - 2:20 PM Anaya De La O is seen in consultation requested by Dr. Angeline Ray for an opinion regarding chronic lower back pain. My final recommendations will be communicated back to the requesting physician by way of shared medical record or via US mail. Chief Complaint: back Subjective Anaya De La O, is a 84 year old female who [...] She completed 1 session on 04/06/24 at [facility] in [place]. Spinal Injections: She has not gotten prior [...] SURGERY HX JOINT RE (more content not included)...[facility]04-29-2025 Instructions* Patient Instructions* Lani Arndt PA-C - 06/30/2024 4:[address] MARGARET CRANE [phone] documented in this encounterOhiohealth O'[facility]04-29-2025 History of Present illness Narrative* Jermaine Kruger RT(R) - 06/30/2024 4:20 PM EDT Radiology Service Progress Note PATIENT NAME: Anaya De La O DATE OF SERVICE: June 30, 2024 TIME: 4:00 PM PATIENT IDENTITY VERIFICATION COMPLETED USING TWO (2) IDENTIFIERS: Name and Date of confirmedby patient verbally. FALL SCREENING: Has the patient had 2 falls in the last year or 1 fall with injury or currently using an Ambulatory Assistive Device (Walker, Cane, Wheelchair, Crutches, etc.)? No PATIENT GENDER DATA: Assigned female at . status: : No status:NO. PATIENT RELEVANT IMPLANT DATA REVIEWED: Yes PATIENT PRESENTS WITH AN IMPLANTABLE OR ATTACHED TUBE CUTTER: No RADIOLOGY DEPARTMENT: General X-ray: Exam(s) Completed: Lower Extremity X- Ray(s): Ankle, Right PERIPHERAL IV DATA: Not applicable SIGNED BY: RT Erica(R) June 30, 2024 4:00 PM documented in this encounterOhiohealth O'[facility]04-29-2025 NoteHNO ID: [id number] Author: JERMAINE KRUGER RT(R) Service: ? Author Type: Mobility Specialist Type: Progress Notes Filed: 06/30/2024 16:15 Note Text: Radiology Service Progress Note PATIENT NAME: Anaya De La O DATE OF SERVICE: June 30, 2024 TIME: [...] PATIENT PRESENTS WITH AN IMPLANTABLE OR ATTACHED TUBE CUTTER: No RADIOLOGY DEPARTMENT: General X-ray: Exam(s) Completed: Lower Extremity X-Ray(s): Ankle, Right PERIPHERAL IV DATA: Not applicable SIGNED BY: RT Erica(R) June 30, 2024 4:00 [facility]04-29-2025 NoteHNO ID: [id number] Author: LANI ARNDT PA-C Service: ? Author Type: Physician Laundry Folder Type: Progress Notes Filed: 06/30/2024 16:47 Note Text: This note was created using VocoMDriter. Subjective Anaya De La O is a 84 year old female. Patient [...] provided with contact information for Dr. Margaret Crane and strongly encouraged to contact his office [...] problems: low Diagnostic procedures: low [facility] History of Present illness Narrative* Lani Arndt PA-C - 06/30/2024 4:01 PM EDT This note was created using VocoMDriter. Subjective Anaya De La O is a 84 year old female. Patient is an 84-year-old female who complains of pain and swelling to the lateral aspect of her right ankle secondary to a twisting injury that she sustained yesterday. Patient reports that she was mowing her yard and stepped into a hole while walking backwards. Patient does not recall a specific m echanism of her injury but states that it [...] kg (122 lb 5.7 oz) SpO2 96% BMI25.57 kg/m Physical Exam Vitals and nursing note [...] ankle is negative for acute findings as reportedby the radiologist. Supportive care instructions were discussed and the patient declines an Aircastankle stirrup splint at this time. Patient was provided with contact information for Dr. Margaret Crane and strongly encouraged to contact his office [...] procedures: low Management options: devante Arndt PA-C documented in this encounterOhiohealth O[facility]04-23-2025 Telephone encounter Note * Telephone Encounter - Ivette Valenzuela MA - 06/24/2024 2:12 PM EDT Pt informed Ivette Valenzuela MA [facility]04-23-2025 Miscellaneous Notes* Telephone Encounter - Ivette Valenzuela MA - 06/24/2024 2:12 PM EDT Pt informed Ivette Valenzuela MA * Telephone Encounter - Edenilson Nicholson DO - 06/24/2024 1:06 PM EDT Please let her know that her pancreatic elastase and H pylori stool testing is normal appearing Edenilson Nicholson DO documented in this encounterOhiohealth O'[facility]04-23-2025 Telephone encounter Note * Telephone Encounter - Edenilson Nicholson DO - 06/24/2024 1:06 PM EDT Please let her know that her pancreatic elastase and H pylori stool testing is normal appearing Edenilson Nicholson DO [facility]04-08-2025 Telephone encounter Note* Telephone Encounter - Jade Escalante LPN - 06/09/2024 10:19 AM EDT Phoned patient went over results, notes from Boogie Ray NP with understanding. Assisted with transfer to channel manager to get pain management appt set up. [facility]04-08-20[facility] Miscellaneous Notes* Telephone Encounter - Jade Escalante LPN - 06/09/2024 10:19 AM EDT Phoned patient went over results, notes from R Cory LIFTER with understanding. Assisted with transfer to channel manager to get pain management appt set up. 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 I would like her to see pain management for evaluation of this. I do question if her left back/flank pain could be r/t this. Please assist her to schedule. 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 I would like her to see pain management for evaluation of this. I do question if her left back/flank pain could be r/t this. Please assist her to schedule. Angeline Ray APRN.IS ARCHITECT [facility]04-07-2025 NoteHNO ID: [id number] Author: EDENILSON NICHOLSON, DO Service: ? Author Type: Physician Type: Progress Notes Filed: 06/10/2024 21:15 Note Text: CC: Anaya De La O is a 84 year old female who presents to the office for follow up HPI: She is present with her in the office today Was seen in the ER at [facility] on 03/23 (2 days ago) for [...] Reactions Caffeine Codeine Darv (more content not included)...[facility]04-07-20[facility] History of Present illness Narrative* Edenilson Nicholson, DO - 06/08/2024 12:17 PM EDT CC: Anaya De La O is a 84 year old female who presents to the office for follow up HPI: She is present with her in the office today Was seen in the ER at [facility] on 03/23 (2 days ago) for [...] comes and goes, no falls. Started in [place] above and still occurring intermittently but does [...] b/l, nares clear and patent b/l, pharynx withouterythema, exudate or lesions. Uvula midline. MMM, EACs [...] ICD9: 696.0, ICD10: L40.50 Chronic, f/u with [employer] Edenilson Nicholson DO I spent 44 minutes in the visit, with more than 50% of the total [id number] time of the visit in counseling / coordination of care. Return if no improvement. Follow up with Edenilson Nicholson DO. To ER if develops chest pain, shortness of breath. Discussed risks, benefits, alternatives, and potential side effects of medications. Patient/Guardian expressed understanding and agreed with the plan. See patient instructions. Edenilson Nicholson DO [address] [place] [address] documented in this encounterOhiohealth O'[facility]len[facility]04-02-2025 NoteHNO ID: [id number] Author: ANGELINE RAY APRN.IS ARCHITECT Service: ? Author Type: Nurse Practitioner Type: Progress Notes Filed: 06/03/2024 15:11 Note Text: 06/03/2024 The patient consented to the use of ambient AI software for draft documentation of the visit consistent with [facility]?s Notice of Privacy Practices. HPI: Anaya [...] 4. Nausea and vom (more content not included)...[facility] 06-03-2024 History of Present illness Narrative* Angeline Ray APRN.IS ARCHITECT - 06/03/2024 3:04 PM EDT 06/03/2024 The patient consented to the use of BrightEdge software for draft documentation of the visit consistent with [facility] s Notice of Privacy Practices. HPI: [...] Left medial tibial stress syndrome, initial encounter (S86.831H) - Intermittent pain in the left romero area, likely consistent with medial tibial stress syndrome. - Advised application of ice and stretching exercises to alleviate symptoms. - Encouraged regular physical activity to strengthen the affected area. The patient indicates understanding of these issues and agrees with the plan. Red flag symptoms reviewed as needed. Follow up: Angeline Ray APRN.IS ARCHITECT documented in this encounterOhiohealth O'Bleness Hospital04-02-2025 Telephone encounter Note * Telephone Encounter - Nola Duenas - 06/03/2024 11:03 AM EDT Prescription Refill Information The patient has been [...] Nola Joy June 03, 2024 11:03 AM [facility]04-02-2025 Miscellaneous Notes* Telephone Encounter - Nola Duenas - 06/03/2024 11:03 AM EDT Prescription Refill Information The patient has been [...] 03, 2024 11:03 AM documented in this encounterOhiohealth O'Bleness Hospital04-01-2025 History of Present illness Narrative* Grace Cr RT(R) - 06/02/2024 12:20 PM EDT Radiology Service Progress Note PATIENT NAME: Anaya De La O DATE OF SERVICE: June 02, 2024 TIME: 12:19 PM PATIENT IDENTITY VERIFICATION COMPLETED USING TWO (2) IDENTIFIERS: Name and Date of confirmedby patient verbally. FALL SCREENING: Has the patient had 2 falls in the last year or 1 fall with injury or currently using an Ambulatory Assistive Device (Walker, Cane, Wheelchair, Crutches, etc.)? No PATIENT GENDER DATA: Assigned female at . status: : No status:NO. PATIENT RELEVANT IMPLANT DATA REVIEWED: Not Applicable PATIENT PRESENTS WITH AN IMPLANTABLE OR ATTACHED TUBE CUTTER: No RADIOLOGY DEPARTMENT: General X-ray: Exam(s) Completed: Spine X-Ray(s): Thoracic and Lumbar AP / LAT / L5-S1 PERIPHERAL IV DATA: Not applicable SIGNED BY: RT Boy(Boogie) June 02, 2024 12:19 PM documented in this encounterOhiohealth O'Bleness Hospital04-01-2025 NoteHNO ID: [id number] Author: GRACE CR RT(R) Service: Radiology Author Type: Technologist Type: Progress Notes Filed: 06/02/2024 12:31 Note Text: Radiology Service Progress Note PATIENT NAME: Anaya De La O DATE OF SERVICE: June 02, 2024 TIME: [...] PATIENT PRESENTS WITH AN IMPLANTABLE OR ATTACHED TUBE CUTTER: No RADIOLOGY DEPARTMENT: General X-ray: Exam(s) Completed: Spine X-Ray(s): Thoracic and Lumbar AP / LAT / L5-S1 PERIPHERAL IV DATA: Not applicable SIGNED BY: RT Boy(Boogie) June 02, 2024 12:19 [facility]03-07-2025 Telephone encounter Note* Telephone Encounter - Yana Serrato LPN - 05/08/2024 1:41 PM EST Spoke with pt gave information provided. Pt voices understanding. [facility]03-07-2025 Miscellaneous Notes* Telephone Encounter - Yana Serrato LPN - 05/08/2024 1:41 PM EST Spoke with pt gave information provided. Pt voices understanding. * Telephone Encounter - Kandi Park APRN.CNP - 05/08/2024 12:34 PM EST PLease call patient and let her know that urine culture was negative. Continue with antibiotic if giving relief. Thank you, Kandi Park APRN.IS ARCHITECT documented in this encounterOhiohealth O'Bleness Hospital03-07-2025 Telephone encounter Note * Telephone Encounter - Kandi Park APRN.KEVIN - 05/08/2024 12:34 PM EST PLease call patient and let her know that urine culture was negative. Continue with antibiotic if giving relief. Thank you, Kandi Park APRN.KEVIN [facility]03-05-2025 History of Present illness Narrative* Kandi Park APRN.KEVIN - 05/06/2024 10:00 AM EST Chief Complaint Patient presents with: Urinary Frequency: For about 2-3 days completed celphalexin on 05/03 HPI Anaya De La O is a 84 year old female who presents here today for Above Complaints. Anaya is an established patient of Dr. Nicholson, DO. Concerns today.. Was seen at [facility] on 04/26 d/t urinary urgency/frequency and cough/congestion. [...] not improve or return quickly -- will likelyneed to go to urology for recurrent UTIs. Increase fluids. - Patient education for prevention given - UA DIP, URINE (POC) - BACTERIAL CULTURE, URINE Prescription instructions reviewed with patient as applicable. Potential red flag symptoms discussed with the patient. Reviewed appropriate action plan to take if red flag symptoms occur. Patient agreeable to treatment plan. Kandi Contreras APRN.IS ARCHITECT [address] [place] [address] documented in this encounterOhiohealth O'Bleness Hospital03-05-2025 NoteHNO ID: [id number] Author: KANDI PARK APRN.KEVIN Service: ? Author Type: Nurse Practitioner Type: Progress Notes Filed: 05/06/2024 11:24 Note Text: Chief Complaint Patient presents with: Urinary Frequency: For about 2-3 days completed celphalexin on 05/03 HPI Anaya De La O is a 84 year old female who presents here today for Above Complaints. Anaya is an established patient of Dr. Bharat DO. Concerns today.. Was seen at [facility] on 04/26 d/t urinary urgency/frequency and cough/congestion. 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 status: : No status:NO. PATIENT RELEVANT IMPLANT DATA REVIEWED: Yes PATIENT PRESENTS WITH AN IMPLANTABLE OR ATTACHED TUBE CUTTER: No ALLERGIES: Reviewed and unchanged CONTRAST ALLERGY: NO. EXAM: MRI - CONTRAST TYPE: GROUP II PERIPHERAL IV DATA: Ambulatory: A peripheral IV was started in the Left antecubital site with a Angio cath: 22 gauge. RADIOLOGY DEPARTMENT: MR; Exam(s) Completed: Body: Pancreas/Biliary SIGNATURE: RT Bhargav(Boogie) PATIENT NAME: Anaya De La O DATE: April 30, 2024 TIME: 11:40 AM documented in this encounterOhiohealth O'Bleness Hospital02-27-2025 NoteHNO ID: [id number] Author: SONG WELLER RT (R) Service: ? Author Type: Technologist Type: Progress [...] PATIENT PRESENTS WITH AN IMPLANTABLE OR ATTACHED TUBE CUTTER: No ALLERGIES: Reviewed and unchanged CONTRAST ALLERGY: NO. EXAM: MRI - CONTRAST TYPE: GROUP II PERIPHERAL IV DATA: Ambulatory: A peripheral IV was started in the Left antecubital site with a Angio cath: 22 gauge. RADIOLOGY DEPARTMENT: MR; Exam(s) Completed: Body: Pancreas/Biliary SIGNATURE: RT Bhargav(Boogie) PATIENT NAME: Anaya De La O DATE: April 30, 2024 TIME: 11:40 [facility]02-26-2025 Telephone encounter Note* Telephone Encounter - Elise Jones - 04/29/2024 11:32 AM EST Prescription Refill Information The patient has been [...] Elise Jones April 29, 2024 11:33 AM [facility]02-26-2025 Miscellaneous Notes* Telephone Encounter - Elise Jones - 04/29/2024 11:32 AM EST Prescription Refill Information The patient has been [...] 29, 2024 11:33 AM documented in this encounterOhiohealth O'Bleness Hospital02-24-2025 Telephone encounter Note * Telephone Encounter - Cherrie Harkins RN - 04/27/2024 1:53 PM EST Patient returned call and given provider's message below and patient verbalized understanding. Tariq Harkins RN [facility]02-24-2025 Miscellaneous Notes* Telephone Encounter - Cherrie Harkins RN - 04/27/2024 1:53 PM EST Patient returned call and given provider's message below and patient verbalized understanding. Tariq Harkins RN * Telephone Encounter - Ramona Cantrell MA - 04/27/2024 1:24 PM EST Message left for pt to call back for results. Ramona Cantrell MA * Telephone Encounter - Sherrie Gonzales APRN.CNP - 04/27/2024 12:21 PM EST Please notify chest ray normal, likely viral illness. Continue with atb for uti. F/u with pcp if cough persist 1 week. Urgent f/u for worsening s/s documented in this encounterOhiohealth O'Blen[facility]02-24-2025 Telephone encounter Note * Telephone Encounter - Raomna Cantrell MA - 04/27/2024 1:24 PM EST Message left for pt to call back for results. Ramona Cantrell MA [facility]02-24-2025 Telephone encounter Note* Telephone Encounter - Sherrie Gonzales APRN.CNP - 04/27/2024 12:21 PM EST Please notify chest ray normal, likely viral illness. Continue with atb for uti. F/u with pcp if cough persist 1 week. Urgent f/u for worsening s/s [facility]02-24-2025 History of Present illness Narrative* Jermaine Kruger, RT(R) - 04/27/2024 11:00 AM EST Radiology Service Progress Note PATIENT NAME: Anaya De La O DATE OF SERVICE: April 27, 2024 TIME: 11:31 AM PATIENT IDENTITY VERIFICATION COMPLETED USING TWO (2) IDENTIFIERS: Name and Date of confirmedby patient verbally. FALL SCREENING: Has the patient had 2 falls in the last year or 1 fall with injury or currently using an Ambulatory Assistive Device (Walker, Cane, Wheelchair, Crutches, etc.)? No PATIENT GENDER DATA: Assigned female at . status: : No status:NO. PATIENT RELEVANT IMPLANT DATA REVIEWED: Yes PATIENT PRESENTS WITH AN IMPLANTABLE OR ATTACHED TUBE CUTTER: No RADIOLOGY DEPARTMENT: General X-ray: Exam(s) Completed: Chest X-Ray PERIPHERAL IV DATA: Not applicable SIGNED BY: RT Erica(Boogie) April 27, 2024 11:31 AM documented in this encounterOhiohealth O'Bleness [facility]02-24-2025 NoteHNO ID: [id number] Author: JERMAINE KRUGER RT(R) Service: ? Author Type: Mobility Specialist Type: Progress Notes Filed: 04/27/2024 11:38 Note Text: Radiology Service Progress Note PATIENT NAME: Anaya De La O DATE OF SERVICE: April 27, 2024 TIME: [...] PATIENT PRESENTS WITH AN IMPLANTABLE OR ATTACHED TUBE CUTTER: No RADIOLOGY DEPARTMENT: General X-ray: Exam(s) Completed: Chest X-Ray PERIPHERAL IV DATA: Not applicable SIGNED BY: RT Erica(R) April 27, 2024 11:31 [facility]02-23-2025 NoteHNO ID: [id number] Author: SHERRIE GONZALES APRN.CNP Service: ? Author Type: Nurse Practitioner Type: Progress Notes Filed: 04/26/2024 14:05 Note Text: Subjective HPI HPI Anaya De La O is a 84 year old female who [...] Negative for flank emory (more content not included)...[facility]02-23-20[facility] History of Present illness Narrative* Sherrie Gonzales APRN.IS ARCHITECT - 04/26/2024 1:53 PM EST Subjective HPI HPI Anaya De La O is a 84 year old female who [...] Griseofulvin, Milk Containing Products (Dairy), Tramadol, Vicodin [Hydrocodone- Acetaminophen], and Zoloft [Sertraline Hcl] MEDICATIONS albuterol HFA [...] resp. rate 20, weight 55.9 kg (123 lb3.8 oz), SpO2 97%. Latest Ref Rng 03/23/2024 [...] - BENZONATATE 100 MG CAPSULE Sherrie Gonzales APRN.IS ARCHITECT documented in this encounterOhiohealth O'Bleness Hospital02-23-2025 Instructions* Patient Instructions* Sherrie Gonzales APRN.CNP - 04/26/2024 1:34 PM EST Return tomorrow [...] Take exactly as directed. Be sure to takeall the medication prescribed, even if your symptoms disappear. If you stop treatment early, the infection may not be fully treated and the symptoms could come back again. 2. Get plenty of rest. You may take acetaminophen for fever and aches. 3. Drink 6 to 8 glasses of fluids, especially water, every day. This helps wash out germs from yoururinary tract. Cranberry juice or other sources of [...] medication or fluids down. documented in this encounterOhiohealth O'[facility]len[facility]02-14-2025 Telephone encounter Note * Telephone Encounter - Armida Warren RN - 04/17/2024 10:30 AM EST Patient calls and notified of results and providers instructions. Patient verbalizes understanding. Armida Warren RN [facility]02-14-2025 Miscellaneous Notes* Telephone Encounter - Armida Warren RN - 04/17/2024 10:30 AM EST Patient calls and notified of results and providers instructions. Patient verbalizes understanding. Armida Warren RN * Telephone Encounter - Ramona Cantrell MA - 04/17/2024 10:21 AM EST Tried to reach pt, line just rings. Ramona Cantrell MA * Telephone Encounter - Ramona Cantrell MA - 04/17/2024 10:20 AM EST ----- Message from To Duran MD sent at 04/16/2024 10:23 AM EST ----- Negative for COVID/flu/RSV. Continue supportive care for symptoms as discussed and call if cough isworsening or she develops fever/chills, SOB, or wheezing. Return to office if not improving in 1 week. documented in this encounterOhiohealth O'Blen[facility]02-14-2025 Telephone encounter Note * Telephone Encounter - Ramona Cantrell MA - 04/17/2024 10:21 AM EST Tried to reach pt, line just rings. Ramona Cantrell MA [facility]02-14-2025 Telephone encounter Note* Telephone Encounter - Ramona Cantrell MA - 04/17/2024 10:20 AM EST ----- Message from To Duran MD sent at 04/16/2024 10:23 AM EST ----- Negative for COVID/flu/RSV. Continue supportive care for symptoms as discussed and call if cough isworsening or she develops fever/chills, SOB, or wheezing. Return to office if not improving in 1 week. [facility]02-12-2025 [id number] (AGENT OF COVID-19) RNA: Not detected INFLUENZA A RNA: Not detected INFLUENZA B RNA: Not detected RESPIRATORY SYNCYTIAL VIRUS (RSV) RNA: Not detectedOhio Valley HospitalComment on above:Performed By: #### [id number] ####[facility] LABCLIA [id number] [place] [id number] [id number] NoteHNO ID: [id number] Author: TO DURAN MD Service: ? Author Type: Physician Type: Progress Notes Filed: 04/15/2024 13:15 Note Text: Chief Complaint Patient presents with: URI Cough: Productive HPI Anaya De La O is a 84 year old female who [...] Alcohol use: No Vasu (more content not included)...[facility]02-12-2025 History of Present illness Narrative* To Duran MD - 04/15/2024 12:28 PM EST Chief Complaint Patient presents with: URI Cough: Productive HPI Anaya De La O is a 84 year old female who [...] Resp 16 Wt 55.7 kg (122 lb 12.8oz) SpO2 98% BMI 25.67 kg/m General Appearance: [...] PO fluids, rest, and supportive care. Red flagsfor re-assessment reviewed with patient in detail. - COVID & INFLUENZA A/B & RSV PCR, ROUTINE - ALBUTEROL SULFATE HFA 90 MCG/ACTUATION AEROSOL INHALER - BENZONATATE 100 MG CAPSULE To Duran MD documented in this encounterOhiohealth O'[facility]len[facility]02-12-2025 Telephone encounter Note * Telephone Encounter - Nell Barnett RN - 04/15/2024 11:25 AM EST Pt called in and reports she has a cough and is bringing up slightly yellow mucus. Pt denies runny nose, SOB, and wheezing. Pt does not know if she has been running a fever. Pt scheduled with Dr Duran today at 1240. [facility]02-12-2025 Miscellaneous Notes* Telephone Encounter - Nell Barnett RN - 04/15/2024 11:25 AM EST Pt called in and reports she has a cough and is bringing up slightly yellow mucus. Pt denies runny nose, SOB, and wheezing. Pt does not know if she has been running a fever. Pt scheduled with Dr Duran today at 1240. documented in this encounterOhiohealth O'Bleness Hospital02-03-2025 NoteHNO ID: [id number] Author: KATHRYN FLORES PT Service: ? Author [...] THERAPY EVALUATION PLAN OF CARE: Assessment: Anaya De La O presents with diagnosis of acute left sided [...] Planned: 1 Planned Treatment Interventions: Therapeutic exercise (58017), Self-assisted management (45467) PLAN FOR NEXT VISIT: DC -- symptoms [...] Demonstration TREATMENT: PT Treatment Interventions: Therapeutic Exercise, Self-Penitentiary Management Evaluation Therapeutic Exercise: 1: *Access Code: [email or web address] URL: [email or web address] Date: 04/06/2024 Prepared by: Kathryn Flores Exercises [...] fatigue , increase ea (more content not included)...[facility] 04-06-2024 History of Present illness Narrative* Shabana Kathryn, PT - 04/06/2024 10:59 AM EST Episode Visit Count: 1 Therapist That Will Accept/Oversee The Plan Of Care: Kathryn Flores Start of Care Date: 04/06/24 Onset Date: 03/09/24 Plan of Care Certification Date: 04/06/24 Next Certification Due Date: 04/06/24 Patient Identified by Name and Date of : Yes [facility]ER[facility] PHYSICAL THERAPY EVALUATION PLAN OF CARE: Assessment: Anaya De La O presents with diagnosis of acute left sided [...] Planned: 1 Planned Treatment Interventions: Therapeutic exercise (30476), Self-assisted management (55293) PLAN FOR NEXT VISIT: DC -- symptoms [...] Demonstration TREATMENT: PT Treatment Interventions: Therapeutic Exercise, Self-Penitentiary Management Evaluation Therapeutic Exercise: 1: *Access Code: [email or web address] URL: [email or web address] Date: 04/06/2024 Prepared by: Kathryn Barrera Exercises - Seated Transversus Abdominis Bracing with [...] and function . Patient education as noted. Self-Penitentiary Management: 1: discussed safe way of lifting/carrying [...] 1130 Kathryn Flores PT documented in this encounterOhiohealth O'Bleness [facility]01-30-2025 Telephone encounter Note * Telephone Encounter - Nicole Fischer - 04/02/2024 10:16 AM EST Prescription Refill Information The patient has been [...] tablet by mouth daily at bedtime. Nicole Joy April 02, 2024 10:17 AM [facility]01-30-2025 Miscellaneous Notes* Telephone Encounter - Nicole Fischer - 04/02/2024 10:16 AM EST Prescription Refill Information The patient has been [...] tablet by mouth daily at bedtime. Nicole Joy April 02, 2024 10:17 AM documented in this encounterOhiohealth O'Bleness Hospital01-22-2025 Telephone encounter Note * Telephone Encounter - Don MakaylaOSKAR catalan - 03/25/2024 11:38 AM EST Images from the original note were not included. Electronic PA rec'd and completed for cyclobenzapine. This was approved. Prior authorization approved Payer: [employer] [phone] Note from payer: CaseId:[id number];Status:Approved;Review Type:Prior Auth;Coverage Start Date:02/24/2024;Coverage End Date:03/25/2025; Approval Details Authorized from February 24, 2024 to March 25, 2025 Electronic appeal: Not supported View History Pharmacy Benefits Open Encounter ANAYA DE LA O - [facility] ([place] ([employer]) Covered: Retail, Mail Order Unknown: Specialty, Long-Term Care BIN: [id number] : 1940 Group ID: [id number] PCN: Legal sex: F Group name: MEDICARE [employer]VANTAGE Address: [address] [place] [address] Medication Being Authorized cyclobenzaprine (FLEXERIL) 5 mg tablet Take 1 tablet by mouth three times a day as needed. Dispense: 30 tablet Refills: 1 Start: 03/25/2024 Class: Normal Diagnoses: Acute left-sided low back pain without sciatica This order has been released to its destination. To be filled at: [facility][id number] [place] [address] [address] [facility] [phone] [id number] [facility]01-22-2025 Miscellaneous Notes* Telephone Encounter - Makayla Ochoa LPN - 03/25/2024 11:38 AM EST Images from the original note were not included. Electronic PA rec'd and completed for cyclobenzapine. This was approved. Prior authorization approved Payer: [employer] [phone] Note from payer: CaseId:[id number];Status:Approved;Review Type:Prior Auth;Coverage Start Date:02/24/2024;Coverage End Date:03/25/2025; Approval Details Authorized from February 24, 2024 to March 25, 2025 Electronic appeal: Not supported View History Pharmacy Benefits Open Encounter ANAYA DE LA O - [facility] ([place] ([employer]) Covered: Retail, Mail Order Unknown: Specialty, Long-Term Care BIN: [id number] : 1940 Group ID: [id number] PCN: Legal sex: F Group name: [employer] Address: [address] [facility] [address] [facility] [id number] Medication Being Authorized cyclobenzaprine (FLEXERIL) 5 mg tablet Take 1 tablet by mouth three times a day as needed. Dispense: 30 tablet Refills: 1 Start: 03/25/2024 Class: Normal Diagnoses: Acute left-sided low back pain without sciatica This order has been released to its destination. To be filled at: [facility] #[id number] [place] [address] - [address] [facility] [phone] [id number] documented in this encounterOhiohealth O'Bleness Hospital01-22-2025 NoteHNO ID: [id number] Author: ANGELINE RAY APRN.IS ARCHITECT Service: ? Author Type: Nurse Practitioner Type: Progress Notes Filed: 03/25/2024 11:35 Note Text: Chief Complaint Patient presents with: ER F/U: Left side abd pain, muscle strain HPI Anaya De La O is a 84 year old female who presents here today for Above Complaints.. Was seen in the ER at [facility] on 03/23 (2 days ago) for [...] Size: Regular Adult) Pul (more content not included)...[facility]01-22-[facility] History of Present illness Narrative* Angeline Ray, PARMJIT.IS ARCHITECT - 03/25/2024 11:13 AM EST Chief Complaint Patient presents with: ER F/U: Left side abd pain, muscle strain HPI Anaya De La O is a 84 year old female who presents here today for Above Complaints.. Was seen in the ER at [facility] on 03/23 (2 days ago) for [...] a day as needed for up to 5days. 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 Patient verbalized understanding and will continue to push fluids and monitor output. JEFF Morrison [facility]01-20-2025 Miscellaneous Notes* Telephone Encounter - Krista Schultz OCCA - 03/23/2024 3:48 PM EST TC to patient and spouse who are both notified of providers message below. Patient verbalized understanding and will continue to push fluids and monitor output. JEFF Morrison * Telephone Encounter - Kandi Park APRN.KEVIN - 03/23/2024 2:47 PM EST Urinary retention is not a common side effect of toradol. I recommend continuing to push fluids and monitor output, even if any incontinence. If no urine output in a total of 24 hours, then needs to return to ER. Thank you, Kandi Park APRN.IS ARCHITECT * Telephone Encounter - Cherrie Harkins RN - 03/23/2024 1:56 PM EST Patient returning call and states she last urinated this morning approximately 6-7am. Reports she usually urinates more often than this. Spouse reports they gave patient Toradol for pain at the ED this monring and he wonders if this is contributing. Cherrie Harkins, RN * Telephone Encounter - Kandi Park APRN.KEVIN - 03/23/2024 12:26 PM EST Exactly how long has it been since last urination? Lab work, including kidney function, looks great from what was drawn today at ER. No signs of infection or any abnormalities in the UA either. CT of entire abd/pelvis was also benign. From my standpoint, I do not see any alarm for concern besides possible urination retention. Thank you, Kandi Park APRN.IS ARCHITECT * Telephone Encounter - Hilaria Cifuentes LPN - 03/23/2024 11:55 AM EST Pt called to reports she went to [facility] today 03-23-24 due to left lower side pain. Pt home now and not urinating list she normally does. Pt getting fluids in but not putting out urine.. Pt concerned. Pt also has been scheduled for ER FU on 03/25/24. Please review and advise pt regarding urination. Hilaria Cifuentes LPN documented in this encounterOhiohealth [facility]01-20-[facility]25 Telephone encounter Note * Telephone Encounter - Kandi Park APRN.CNP - 03/23/2024 2:47 PM EST Urinary retention is not a common side effect of toradol. I recommend continuing to push fluids and monitor output, even if any incontinence. If no urine output in a total of 24 hours, then needs to return to ER. Thank you, Kandi Park APRN.IS ARCHITECT [facility]01-20-2025 Telephone encounter Note* Telephone Encounter - Cherrie Harkins RN - 03/23/2024 1:56 PM EST Patient returning call and states she last urinated this morning approximately 6-7am. Reports she usually urinates more often than this. Spouse reports they gave patient Toradol for pain at the ED this monring and he wonders if this is contributing. Cherrie Harkins RN [facility]01-20-2025 Telephone encounter Note* Telephone Encounter - Kandi Park APRN.KEVIN - 03/23/2024 12:26 PM EST Exactly how long has it been since last urination? Lab work, including kidney function, looks great from what was drawn today at ER. No signs of infection or any abnormalities in the UA either. CT of entire abd/pelvis was also benign. From my standpoint, I do not see any alarm for concern besides possible urination retention. Thank you, Kandi Park APRN.IS ARCHITECT [facility]01-20-2025 Telephone encounter Note* Telephone Encounter - Hilaria Cifuentes LPN - 03/23/2024 11:55 AM EST Pt called to reports she went to [facility] today 03-23-24 due to left lower side pain. Pt home now and not urinating list she normally does. Pt getting fluids in but not putting out urine.. Pt concerned. Pt also has been scheduled for ER FU on 03/25/24. Please review and advise pt regarding urination. Hilaria Cifuentes LPN [facility]11-23-2024 NoteHNO ID: [id number] Author: AMERICA MENDEZ APRN.KEVIN Service: ? Author Type: Nurse Practitioner Type: Progress Notes Filed: 01/25/2024 11:51 Note Text: This note was created using [employer] [address]. Subjective Anaya De La O is a 83 year old female. HPI [...] Discussed with patient that she could use eamu-wpn-hdeboix numbing medication as needed for discomfort. I recommended that she does follow-up closely with either her PCP or dentist and return if symptoms seem to be worsening. America Mendez APRN.[facility]11-23-2024 History of Present illness Narrative* America Mendez APRN.KEVIN - 01/25/2024 11:49 AM EST This note was created using [employer]. Subjective Anaya De La O is a 83 year old female. HPI Patient complains of a sore in her mouth for the last day. She otherwise denies any nausea vomitingor fever. She is worried there might be [...] of infection and I did not feel thatantibiotics are necessary at this time. Discussed with patient that she could use nric-ftp-zrvffcs numbing medication as needed for discomfort. I recommended that she does follow-up closely with either her PCP or dentist and return if symptoms seem to be worsening. mAerica Mendez APRN.KEVIN documented in this encounterOhiohealth O[facility]11-22-2024 Telephone encounter Note * Telephone Encounter - Edenilson Nicholson DO - 01/24/2024 9:52 AM EST Noted [facility]11-22-2024 Miscellaneous Notes* Telephone Encounter - Edenilson Nicholson DO - 01/24/2024 9:52 AM EST Noted * Telephone Encounter - Elizabeth Perez RN - 01/23/2024 1:18 PM EST Patient calling to let PCP know that she saw Dr. Gandhi @ [facility] today for psoriasis. Dr. Gandhi prescribed Otezla 10 mg x 4 days, 20 mg x 4 days then 30 mg daily. She discontinued Methotrexate. Elizabeth Perez RN documented in this encounterOhiohealth O'[facility]11-21-2024 Telephone encounter Note * Telephone Encounter - Elizabeth Perez RN - 01/23/2024 1:18 PM EST Patient calling to let PCP know that she saw Dr. Gandhi @ [facility] today for psoriasis. Dr. Gandhi prescribed Otezla 10 mg x 4 days, 20 mg x 4 days then 30 mg daily. She discontinued Methotrexate. Elizabeth Perez RN [facility]11-20-2024 NoteHNO ID: [id number] Author: EDENILSON NICHOLSON DO Service: ? Author Type: Physician Type: Progress Notes Filed: 01/22/2024 11:47 Note Text: CC: Anaya De La O is a 83 year old female who presents to the office for follow up HPI: Seen in office 2 weeks ago by Dunia Ray CNP as below Right heel-saw [facility] Snowden [...] ONCE A WEEK FOR 2 WEEKS fluocinolone-skin -ltuf 0.01 % kit Apply to affected area [...] Smoking status: Never Sm (more content not included)...[facility]11-20-2024 History of Present illness Narrative* Edenilson Nicholson, - 01/22/2024 11:41 AM EST CC: Anaya De La O is a 83 year old female who presents to the office for follow up HPI: Seen in office 2 weeks ago by uDnia Ray CNP as below Right heel-saw [facility] last week, going back in a month. Was told she had psoriatic arthritis flare because she had stopped her methotrexate per physician order to see if her chronic abdominalpain sx would resolve. The abdominal sx did not resolve and she has since restarted the medication.Has been applying the tapinarof cream per dermatology, is not covering it with a dressing, just leaving it open. She would like to have this looked at to see if it looks right. Currently She was diagnosed with fungal infection on her right heel. Has been using medicated cream and it isimproving- ketoconazole. She admits that she does mostly [...] ONCE A WEEK FOR 2 WEEKS fluocinolone-skin rpxha36-bcpt 0.01 % kit Apply to affected area [...] nares without drainage, pharynx without erythema, exudate, lesions,or drainage. Uvula midline. Neck: No LAD, no [...] ICD9: 696.0, ICD10: L40.50 Follow up with [employer] She just recently was restarted on methotrexate [...] plan. See patient instructions. Edenilson Nicholson DO [address] [place] [address] documented in this encounterOhiohealth O'[facility]11-20-2024 Instructions* Patient Instructions* Edenilson Nicholson DO - 01/22/2024 11:06 AM EST Ketoconazole cream on nail with a bandaid daily If nail doesn't improve, then need to consider doing a Lamisil pill daily documented in this encounterOhiohealth O'[facility]11-13-2024 Telephone encounter Note * Telephone Encounter - Hanna Couch MA - 01/15/2024 4:53 PM EST Patient informed and verbalized understanding. Hanna Couch MA [facility]11-13-2024 Miscellaneous Notes* Telephone Encounter - Hanna Couch MA - 01/15/2024 4:53 PM EST Patient informed and verbalized understanding. Hanna Couch MA * Telephone Encounter - Claire Biggs PA-C - 01/14/2024 9:29 AM EST Not recommend at the time of her visit with Angeline. Advise following up with lakshmi snowden as shehas been following with them for this skin lesion/wound. If develops worsening/spreading redness, warmth, pain, red streaking, fever, needs to be seen in the office to reevaluate. Claire Biggs PA-C 01/14/2024 * Telephone Encounter - Elisabeth Rico LPN - 01/10/2024 3:16 PM EST PATIENT is wanting to know if she needs and antibiotic for her right foot- redness. Patient was also seen by Rhina Snowden as well and they did not give an antibiotic either. Patient is wondering if she needs one? Please review and advise and call patient back Elisabeth Rico LPN documented in this encounterOhiohealth O[facility]11-12-2024 Telephone encounter Note * Telephone Encounter - Claire Biggs PA-C - 01/14/2024 9:29 AM EST Not recommend at the time of her visit with Angeline. Advise following up with lakshmi snowden as shehas been following with them for this skin lesion/wound. If develops worsening/spreading redness, warmth, pain, red streaking, fever, needs to be seen in the office to reevaluate. Claire Biggs PA-C 01/14/2024 [facility] Work Phone: 1(232) 100-177011-08-2024 Telephone encounter Note* Telephone Encounter - Yi Judge RN - 01/10/2024 5:39 PM EST Reason for Call: Psoriatic arthritis: red, swollen, [...] 6. TENDER: Pain? Yes - 6 or 710 I can't wear my shoe very well [...] Now toes are not swollen. Protocols used: [id number] [facility]11-08-2024 Miscellaneous Notes* Telephone Encounter - Yi Judge RN - 01/10/2024 5:39 PM EST Reason for Call: Psoriatic arthritis: red, swollen, [...] Now toes are not swollen. Protocols used: [id number] documented in this encounterOhiohealth O'[facility]11-08-2024 Telephone encounter Note * Telephone Encounter - Elisabeth Rico LPN - 01/10/2024 3:16 PM EST PATIENT is wanting to know if she needs and antibiotic for her right foot- redness. Patient was also seen by Rhina Snowden as well and they did not give an antibiotic either. Patient is wondering if she needs one? Please review and advise and call patient back Elisabeth Rico LPN [facility]11-08-2024 Telephone encounter Note* Telephone Encounter - Yi Jones RN - 01/10/2024 9:21 AM EST Patient's calls and is requesting refills. also asking if he can merchandise pickup/receiving associate a copy of after visit summary in [...] Jones RN January 10, 2024 9:22 AM [facility]11-08-2024 Miscellaneous Notes* Telephone Encounter - Yi Jones RN - 01/10/2024 9:21 AM EST Patient's calls and is requesting refills. also asking if he can merchandise pickup/receiving associate a copy of after visit summary in [...] 10, 2024 9:22 AM documented in this encounterOhiohealth O'[facility]11-07-2024 NoteHNO ID: [id number] Author: ANGELINE RAY APRN.IS ARCHITECT Service: ? Author Type: Nurse Practitioner Type: Progress Notes Filed: 01/13/2024 12:59 Note Text: Chief Complaint Patient presents with: Urinary Frequency Rash: R heel, warm to touch, red and swollen, saw [facility] and was prescribed Tapinarof cream, Derm took Cx- neg HPI Lytlebk De La O is a 83 year old female who presents here today for Above Complaints.. [facility] did not get results of urinary culture back yet. States her urinary frequency isn't any worse than it typically is, especially when she drinks a lot of water. Denies other urinary sx. Right heel-saw [facility] last week, going back in a month. [...] ONCE A WEEK FOR 2 WEEKS fluocinolone-skin ilzzb23-gzel 0.01 % kit Apply to affected area [...] 0.1 % ophthalmi (more content not included)... [facility]11-07-[facility] History of Present illness Narrative* Angeline Ray, PARMJIT.IS ARCHITECT - 01/09/2024 10:21 AM EST Chief Complaint Patient presents with: Urinary Frequency Rash: R heel, warm to touch, red and swollen, saw [facility] and was prescribed Tapinarof cream, Dermtook Cx- neg HPI Anaya De La O is a 83 year old female who presents here today for Above Complaints.. Urinary [facility], did not get results of urinary culture back yet. States her urinary frequency isn't any worse than it typically is, especially when she drinks a lot of water. Denies other urinary sx. Right heel-saw [facility] Snowden last week, going back in a month. Was told she had psoriatic arthritis flare because she had stopped her methotrexate per physician order to see if her chronic abdominalpain sx would resolve. The abdominal sx did not resolve and she has since restarted the medication.Has been applying the tapinarof cream per dermatology, [...] ONCE A WEEK FOR 2 WEEKS fluocinolone-skin -tduu 0.01 % kit Apply to affected area [...] her are already heading to [facility] today to get another sample of the prescribed cream. I recommend they see them for further evaluation as I am not familiar with this medication or tx, I have not seen this wound prior to the tx. I did send a letter to their office stating that I am happy to helpwith the care but am unfamiliar with this medication and tx. 3. Open wound of right heel, subsequent encounter - ICD9: V58.89, 892.0, ICD10: S91.301D I do recommend she cover this wound with nonadherent dressing. Patient and her are already heading to [facility] today to get another sample of the prescribed cream. I recommend they see them for further evaluation as I am not familiar with this medication or tx, I have not seen this wound prior to the tx. I did send a letter to their office stating that I am happy to helpwith the care but am unfamiliar with this medication and tx. Angeline Ray APRN.IS ARCHITECT Greater than 50% of 42-minute visit spent face to face with patient in counseling and education. documented in this encounterOhiohealth O'[facility]11-01-2024 NoteHNO ID: [id number] Author: KATHRYN PEARSON APRN.IS ARCHITECT Service: ? Author Type: Nurse Practitioner Type: Progress Notes Filed: 01/03/2024 12:24 Note Text: This note was created using [employer]. Subjective Anaya De La O is a 83 year old female. 83 [...] by the patient and the spouse. No sign language interpreter was used. PAST MEDICAL HISTORY Diagnosis Date [...] ONCE A WEEK FOR 2 WEEKS fluocinolone-skin -zxro 0.01 % kit Apply to affected area [...] arthralgias, back p (more content not included)... [facility]11-01-[facility] History of Present illness Narrative* Kathryn Pearson APRN.IS ARCHITECT - 01/03/2024 12:05 PM EDT This note was created using [employer]. Subjective Anaya De La O is a 83 year old female. 83 [...] by the patient and the spouse. No sign language interpreter was used. PAST MEDICAL HISTORY Diagnosis Date [...] Griseofulvin, Milk Containing Products (Dairy), Tramadol, Vicodin [Hydrocodone- Acetaminophen], and Zoloft [Sertraline Hcl] MEDICATIONS methotrexate 2.5 mg tablet TAKE 5 TABLET(S) ORAL ONCE A WEEK START 4 TABS ONCE A WEEK FOR 2 WEEKS fluocinolone-skin -lfak 0.01 % kit Apply to affected area [...] Snowden Appt made for patient 01/06/24 with Coryela Pearson APRN.IS ARCHITECT documented in this encounterOhiohealth O'[facility]10-25-2024 Telephone encounter Note * Telephone Encounter - Yana Serrato LPN - 12/27/2023 11:05 AM EDT Pt has refills at pharmacy through oct. Pt notified of such. Refill will be declined. [facility] Miscellaneous Notes* Telephone Encounter - Yana Serrato LPN - 12/27/2023 11:05 AM EDT Pt has refills at pharmacy through oct. Pt notified of such. Refill will be declined. * Telephone Encounter - Chapis Womack - 12/27/2023 11:02 AM EDT Patient has 1 left. Patient has been [...] Thank you. Chapis Womack. documented in this encounterOhiohealth O[facility]10-25-2024 Telephone encounter Note * Telephone Encounter - Chapis Womack - 12/27/2023 11:02 AM EDT Patient has 1 left. Patient has been [...] 01/22/2024 Please advise. Thank you. Chapis Womack. [facility]-22-[facility]24 Instructions* Patient Instructions* Abigail Balderas APRN.[facility] - 12/24/2023 5:54 PM EDT ASSESSMENT/PLAN: 1. [...] Discussed expected course of illness Abigail Balderas APRN.IS ARCHITECT documented in this encounterOhiohealth O'[facility]len[facility]10-22-2024 NoteHNO ID: [id number] Author: ABIGAIL BALDERAS APRN.KEVIN Service: ? Author Type: Nurse Practitioner Type: Progress Notes Filed: 12/24/2023 17:54 Note Text: Subjective HPI Anaya De La O is a 83 year old female who [...] [Hydrocodone-Acetaminophen], and Zoloft [Sertraline Hcl] MEDICATIONS fluocinolone-skin yyxbb14-ndmn 0.01 % kit Apply to affected area [...] Smoking status: Never Smok (more content not included)...[facility]10-22-[facility] History of Present illness Narrative* Abigail Balderas APRN.IS ARCHITECT - 12/24/2023 5:30 PM EDT Subjective HPI Anaya De La O is a 83 year old female who [...] kg (124 lb 1.9 oz) SpO2 96% BMI25.94 kg/m PAST MEDICAL HISTORY Diagnosis Date Abdominal [...] Griseofulvin, Milk Containing Products (Dairy), Tramadol, Vicodin [Hydrocodone- Acetaminophen], and Zoloft [Sertraline Hcl] MEDICATIONS fluocinolone-skin mtirz39-qqti 0.01 % kit Apply to affected area [...] Discussed expected course of illness Abigail Balderas APRN.CNP documented in this encounterOhiohealth O'[facility]10-22-2024 Telephone encounter Note * Telephone Encounter - Cherrie Harkins RN - 12/24/2023 3:17 PM EDT Patient calling to state she thinks she may have a UTI with urinary frequency for 2 days. History of UTI's. Pt agreeable to being evaluated as advised, at [facility] this evening. Cherrie Harkins RN [facility]10-22-2024 Miscellaneous Notes* Telephone Encounter - Cherrie Harkins RN - 12/24/2023 3:17 PM EDT Patient calling to state she thinks she may have a UTI with urinary frequency for 2 days. History of UTI's. Pt agreeable to being evaluated as advised, at [facility] this evening. Cherrie Harkins RN documented in this encounterOhiohealth O'[facility]10-03-2024 Instructions* Patient Instructions* Kinga Carter APRN.CNP - 12/05/2023 11:18 AM EDT 1) See Dr. Nicholson in Nov. 2) Fluocinolone tape 2 x day to heel documented in this encounterOhiohealth O'[facility]len[facility]10-03-2024 History of Present illness Narrative* Kinga Carter APRN.CNP - 12/05/2023 11:05 AM EDT This is a 83 year old female who presents today with: Patient presents with: Psoriatic Arthritis: Follow up HISTORY OF PRESENT ILLNESS: Anaya De La O is a 83 year old female. Patient [...] Griseofulvin, Milk Containing Products (Dairy), Tramadol, Vicodin [Hydrocodone- Acetaminophen], and Zoloft [Sertraline Hcl] MEDICATIONS Current Outpatient [...] excoriated. Itchy. No drainage. Some improvement but notmuch- area size of quarter Neurological: Mental Status: [...] or as needed for worsening/no improvement. Kinga Carter APRN.KEVIN documented in this encounterOhiohealth O'[facility]10-02-2024 Telephone encounter Note * Telephone Encounter - Armida Warren RN - 12/04/2023 8:39 AM EDT Patient calls to request appointment with Kinga Carter for worsening flare up of psoriatic arthritis [...] same provider as previously. Armida Warren RN [facility]10-02-2024 Miscellaneous Notes* Telephone Encounter - Armida Warren RN - 12/04/2023 8:39 AM EDT Patient calls to request appointment with Kinga Carter for worsening flare up of psoriatic arthritis [...] previously. Armida Warren RN documented in this encounterOhiohealth O'[facility]09-26-2024 Telephone encounter Note * Telephone Encounter - Jade Escalante LPN - 11/28/2023 3:29 PM EDT Patient returned call and went over results from Tasneem Carter NP with understanding. [facility] Miscellaneous Notes* Telephone Encounter - Jade Escalante LPN - 11/28/2023 3:29 PM EDT Patient returned call and went over results from Tasneem Carter NP with understanding. * Telephone Encounter - Misty Adorno LPN - 11/28/2023 2:36 PM EDT Left message to call and speak with nurse. * Telephone Encounter - Kinga Carter APRN.CNP - 11/28/2023 12:42 PM EDT Please let patient know that her x-ray of her ankle was normal. documented in this encounterOhiohealth O'[facility]09-26-2024 Telephone encounter Note * Telephone Encounter - Misty Adorno LPN - 11/28/2023 2:36 PM EDT Left message to call and speak with nurse. [facility] Telephone encounter Note* Telephone Encounter - Kinga Carter APRN.CNP - 11/28/2023 12:42 PM EDT Please let patient know that her x-ray of her ankle was normal. [facility] History of Present illness Narrative* Grace Cr RT(R) - 11/25/2023 1:10 PM EDT Radiology Service Progress Note PATIENT NAME: Anaya De La O DATE OF SERVICE: November 25, 2023 TIME: 1:12 PM PATIENT IDENTITY VERIFICATION COMPLETED USING TWO (2) IDENTIFIERS: Name and Date of confirmedby patient verbally. FALL SCREENING: Has the patient had 2 falls in the last year or 1 fall with injury or currently using an Ambulatory Assistive Device (Walker, Cane, Wheelchair, Crutches, etc.)? No PATIENT GENDER DATA: Female. status: : No status: NO. PATIENT RELEVANT IMPLANT DATA REVIEWED: Not Applicable PATIENT PRESENTS WITH AN IMPLANTABLE OR ATTACHED TUBE CUTTER: No RADIOLOGY DEPARTMENT: General X-ray: Exam(s) Completed: Lower Extremity X- Ray(s): Ankle, Right and Wt. Bearing PERIPHERAL IV DATA: Not applicable SIGNED BY: RT Boy(R) November 25, 2023 1:12 PM documented in this encounterOhiohealth O'[facility]09-23-2024 Instructions* Patient Instructions* Kinga Carter APRN.CNP - 11/25/2023 1:05 PM EDT 1) Medrol taper as discussed 2) Clobetasol ointment daily to right ankle- back 3) Xray today 4) Follow up Dr. Nicholson in January 5) Call if symptom does not get better or returns documented in this encounterOhiohealth O'[facility]len[facility]09-23-2024 History of Present illness Narrative* Kinga Carter APRN.CNP - 11/25/2023 12:47 PM EDT This is a 83 year old female who presents today with: Patient presents with: Pain: Right foot, back of heel HISTORY OF PRESENT ILLNESS: Anaya De La O is a 83 year old female. Patient presents with: Pain: Right foot, back of heel Went to congregational yesterday. When she got home, she noticed [...] the pain. Was on methotrexate and saw [employer]. Quit seeing her and stopped medication about [...] Griseofulvin, Milk Containing Products (Dairy), Tramadol, Vicodin [Hydrocodone- Acetaminophen], and Zoloft [Sertraline Hcl] MEDICATIONS Current Outpatient [...] or as needed for worsening/no improvement. Kinga Carter APRN.KEVIN documented in this encounterOhiohealth O'[facility]09-16-2024 Telephone encounter Note * Telephone Encounter - Arlen Paul - 11/18/2023 2:31 PM EDT Prescription Refill Information The patient has been [...] Arlen Paul November 18, 2023 2:36 PM [facility]-16-2024 Miscellaneous Notes* Telephone Encounter - Arlen Paul - 11/18/2023 2:31 PM EDT Prescription Refill Information The patient has been [...] 18, 2023 2:36 PM documented in this encounterOhiohealth O'[facility]len[facility]09-11-2024 History and physical note * Anamaria Paul MD - 11/13/2023 12:00 PM EDT Images from the original note were not included. REASON FOR VISIT: Pancreatic cyst HPI: Anaya De La O is a 83 year old female who [...] lesion in the pancreatic body without definite communicationwith the pancreatic duct. No suspicious enhancing lesion. CT scan of the abdomen pelvis 09/23/2023 described 1.7 x 1.4 cm cystic mass in the pancreatic body. Review of medical record showed that she had MRCP 12/27/2022 which showed 1.8 x 1.8 x 1.5 cm cysticlesion with several thin septations in the posterior body of the pancreas without pancreas duct dilation or divisum. The patient is completely asymptomatic today. Denies abdominal pain, nausea vomiting or weight loss. Her cousin had negative cancer and in her late 50s. Does not smoke cigarettes and drink alcohol socially. She is and has 3 daughters. She retired in 2007 from [employer]. Previous work up includes: 05/10/2022 Colonoscopy by [...] syndrome, provided with the biopsies are sales representative printing supplies of the lesion of clinical interest. Clinical [...] Abs Lymph 1.00 - 4.00 k/uL 1.21 [place]% % 8.9 Abs [place] <0.87 k/uL 0.49 Eosin% % 0.5 Abs [...] 16 - 61 U/L 85 (H) 38 JYALA High Sensitivity <12 ng/L 11 CEA <=2.9 [...] FACP CT-Scan 09/23/2023 MRCP 05/24/2023 MRCP 12/27/2022 [facility] History and physical note* Anamaria Paul MD - 11/13/2023 12:00 PM EDT Images from the original note were not included. REASON FOR VISIT: Pancreatic cyst HPI: Anaya De La O is a 83 year old female who [...] lesion in the pancreatic body without definite communicationwith the pancreatic duct. No suspicious enhancing lesion. CT scan of the abdomen pelvis 09/23/2023 described 1.7 x 1.4 cm cystic mass in the pancreatic body. Review of medical record showed that she had MRCP 12/27/2022 which showed 1.8 x 1.8 x 1.5 cm cysticlesion with several thin septations in the posterior body of the pancreas without pancreas duct dilation or divisum. The patient is completely asymptomatic today. Denies abdominal pain, nausea vomiting or weight loss. Her cousin had negative cancer and in her late 50s. Does not smoke cigarettes and drink alcohol socially. She is and has 3 daughters. She retired in 2007 from [employer]. Previous work up includes: 05/10/2022 Colonoscopy by [...] syndrome, provided with the biopsies are sales representative printing supplies of the lesion of clinical interest. Clinical [...] Abs Lymph 1.00 - 4.00 k/uL 1.21 [place]% % 8.9 Abs [place] <0.87 k/uL 0.49 Eosin% % 0.5 Abs [...] EUS, OR TUBE INTERVENTIONS [facility]amaria Paul [facility] 09/23/2023 MRCP 05/24/2023 MRCP 12/27/2022 documented in this encounterOhio[facility]09-[facility] Telephone encounter Note * Telephone Encounter - Jade Escalante LPN - 11/08/2023 12:54 PM EDT The patient has been identified by name [...] Escalante LPN November 08, 2023 12:55 PM [facility]09-06-2024 Miscellaneous Notes* Telephone Encounter - Jade Escalante LPN - 11/08/2023 12:54 PM EDT The patient has been identified by name [...] 08, 2023 12:55 PM documented in this encounterOhiohealth O'[facility]08-27-2024 Telephone encounter Note * Telephone Encounter - Johanna Kilpatrick MA - 10/29/2023 8:34 AM EDT Patient given results and verbalized understanding of instructions given. Johanna Kilpatrick MA [facility]08-27-2024 Miscellaneous Notes* Telephone Encounter - Johanna Kilpatrick MA - 10/29/2023 8:34 AM EDT Patient given results and verbalized understanding of instructions given. Johanna Kilpatrick MA * Telephone Encounter - Kym Lewis PA - 10/29/2023 7:06 AM EDT Please let patient know she is positive for COVID-19. Isolate until 24 hours fever free and symptoms improving. May continue OTC medications as needed. documented in this encounterOhiohealth O'[facility]08-27-2024 Telephone encounter Note * Telephone Encounter - Kym Lewis PA - 10/29/2023 7:06 AM EDT Please let patient know she is positive for COVID-19. Isolate until 24 hours fever free and symptoms improving. May continue OTC medications as needed. [facility] Work Phone: 1(846) 201-554208-26-2024 History of Present illness Narrative* Kym Lewis PA - 10/28/2023 11:13 AM EDT This note was created using [address]. Subjective Anaya De La O is a 83 year old female. HPI 83-year-old female presents for cough. Patient has had a cough x 2 days. She states it is a drycough. She has not had any fevers, nasal congestion, sore throat, vomiting or diarrhea. Still able to eat and drink. No chest pain or shortness of breath. recently tested positive for COVID. She would like tested for this. She has not taken anything vpai-mxu-gsmofmm for her symptoms. She denies any other [...] Griseofulvin, Milk Containing Products (Dairy), Tramadol, Vicodin [Hydrocodone- Acetaminophen], and Zoloft [Sertraline Hcl] MEDICATIONS FLUoxetine (PROZAC) [...] kg (116 lb 6.5 oz) SpO2 97% BMI24.33 kg/m Physical Exam Vitals and nursing note [...] (primary diagnosis) -Suspect viral. Lungs clear. -Recommend ufkd-twn-wqfgldf cough/cold medication as needed, honey, fluids, rest, Tylenol/Motrin asneeded for fever. -Patient did have exposure to [...] ER evaluation. SUSAN Hayden documented in this encounterOhiohealth O'[facility]08-26-2024 History of Present illness Narrative* Edenilson Nicholson, - 10/28/2023 8:42 AM EDT CC: Anaya De La O is a 83 year old female who presents to the office for follow up HPI: Seen in office on 07/16/23, at that visit Dx on 07/04/2023 with UTI, tx with Macrobid, states still +sx-urinary urgency and frequency. RUQ and epigastric pain for about a week, intermittently but now becoming more consistent. +nausea,no vomiting/diarrhea. Appetite is normal. Is random, no [...] which was started 2-3 months ago. Tolerating medicationwell with SE. Mood, stable, taking the Prozac [...] agreed with the plan. Edenilson Nicholson DO [address] [place] [address] documented in this encounterOhiohealth O'[facility]len[facility]08-22-2024 Telephone encounter Note * Telephone Encounter - Kitty Campos - 10/24/2023 11:05 AM EDT Scheduled, per message below. Thank you, [facility]-22-[facility] Miscellaneous Notes* Telephone Encounter - Kitty Campos - 10/24/2023 11:05 AM EDT Scheduled, per message below. Thank you, * Telephone Encounter - Mary Miranda RN - 10/24/2023 10:38 AM EDT This pt needs to be seen in pancreas clinic. Please schedule on 11/13/2023. Thank you, Mary Miranda RN * Telephone Encounter - Kitty Campos - 10/24/2023 10:28 AM EDT Spouse calling for who was seen by Dr. Mendez. Stating, Dr. Mendez is referring for elevated levels. Also stating PT has tumor in pancreas? First available appt was scheduled for Nov 19. Pt lives in [place], [place]. Please review and advise if PT needs earlier appt. Thank you, documented in this encounterOhiohealth O'[facility]08-22-2024 Telephone encounter Note * Telephone Encounter - Mary Miranda RN - 10/24/2023 10:38 AM EDT This pt needs to be seen in pancreas clinic. Please schedule on 11/13/2023. Thank you, Mary Miranda RN [facility] Work Phone: 1(345) 449-987608-22-2024 Telephone encounter Note* Telephone Encounter - Kitty Campos - 10/24/2023 10:28 AM EDT Spouse calling for who was seen by Dr. Mendez. Stating, Dr. Mendez is referring for elevated levels. Also stating PT has tumor in pancreas? First available appt was scheduled for Nov 19. Pt lives in [place], [place]. Please review and advise if PT needs earlier appt. Thank you, [facility]08-20-2024 Instructions* Patient Instructions* Edenilson Nicholson DO - 10/22/2023 12:16 PM EDT Stool softener - Docusate sodium can take up to 2 capsules twice a day (start with 1 capsule a day and then increase to 2 capsules if needed once a day in the evening) Soak hands or feet in warm water with epsom salts (1/2 cup) for 15-20 minutes at a time. documented in this encounterOhiohealth O'[facility]07-23-2024 Telephone encounter Note * Telephone Encounter - Taty Aguilar LPN - 09/24/2023 11:51 AM EDT Pt's calls to report pt was in [facility] yesterday for vomiting. Pt was advised to follow up with GI. is requesting pcp review ER report and would like to know if pcp has a recommendation for a GI dr. Please review and advise. Taty Aguilar LPN [facility]07-23-2024 Miscellaneous Notes* Telephone Encounter - Taty Aguilar LPN - 09/24/2023 11:51 AM EDT Pt's calls to report pt was in [facility] ER yesterday for vomiting. Pt was advised to follow up with GI. is requesting pcp review ER report and would like to know if pcp has a recommendation for a GI dr. Please review and advise. Taty Aguilar LPN documented in this encounterOhiohealth O'[facility]07-21-2024 Telephone encounter Note * Telephone Encounter - Julius Jenkins RN - 09/22/2023 2:07 PM EDT Reason for Call: Abdominal pain, vomiting. Patient resting, triage completed with . Outcome: Patient's was conferenced to Kathrin [facility] for PCP scheduling within 24 hours, and was advised to go to urgent care or ER if needed. Reason for Disposition [1] MODERATE pain (e.g., interferes with normal activities) AND [2] comes and goes (cramps) AND [3]present > 24 hours (Exception: Pain with Vomiting or Diarrhea - see that Guideline.) NURSING JUDGEMENT: symptoms present <24 hours. Upgrade due to potential dehydration concern. Answer Assessment - Initial Assessment Questions 1. LOCATION: epigastric pain 2. RADIATION: denies 3. ONSET: 09/22/23, [id number] 4. SUDDEN: sudden onset, woke from sleep 5. PATTERN: intermittent, patient now resting 6. SEVERITY: resting now 7. RECURRENT SYMPTOM: N/A 8. AGGRAVATING FACTORS: denies 9. CARDIAC SYMPTOMS: nausea, diaphoresis, chills/shaking 10. OTHER SYMPTOMS: denies 11. : N/A -patient had nausea, vomiting, chills/diaphoresis earlier today ([id number]). Three episodes of emesis, and dry heaving. Emesis appeared like what she ate last. Patient has since been resting, able toambulate to use restroom. has concern that symptoms could be related to patient's medication Donepezil. Has not kept anything down (liquid/food) today, has not taken meds. Protocols used: Abdominal Pain - [id number] [facility]07-21-2024 Miscellaneous Notes* Telephone Encounter - Julius Jenkins RN - 09/22/2023 2:07 PM EDT Reason for Call: Abdominal pain, vomiting. Patient resting, triage completed with . Outcome: Patient's was conferenced to Kathrin in [facility] for PCP scheduling within 24 hours, and was advised to go to urgent care or ER if needed. Reason for Disposition [1] MODERATE pain (e.g., interferes with normal activities) AND [2] comes and goes (cramps) AND [3]present > 24 hours (Exception: Pain with Vomiting or Diarrhea - see that Guideline.) NURSING JUDGEMENT: symptoms present <24 hours. Upgrade due to potential dehydration concern. Answer Assessment - Initial Assessment Questions 1. LOCATION: epigastric pain 2. RADIATION: denies 3. ONSET: 09/22/23, 7600-1070 4. SUDDEN: sudden onset, woke from sleep 5. PATTERN: intermittent, patient now resting 6. SEVERITY: resting now 7. RECURRENT SYMPTOM: N/A 8. AGGRAVATING FACTORS: denies 9. CARDIAC SYMPTOMS: nausea, diaphoresis, chills/shaking 10. OTHER SYMPTOMS: denies 11. : N/A -patient had nausea, vomiting, chills/diaphoresis earlier today ([id number]). Three episodes of emesis, and dry heaving. Emesis appeared like what she ate last. Patient has since been resting, able toambulate to use restroom. has concern that symptoms could be related to patient's medication Donepezil. Has not kept anything down (liquid/food) today, has not taken meds. Protocols used: Abdominal Pain - [id number] documented in this encounterOhiohealth O[facility]07-17-2024 History of Present illness Narrative* Edenilson Nicholson, DO - 09/18/2023 8:26 PM EDT CC: Anaya De La O is a 83 year old female who presents to the office for follow up HPI: Seen in office on 07/16/23, at that visit Dx on 07/04/2023 with UTI, tx with Macrobid, states still +sx-urinary urgency and frequency. RUQ and epigastric pain for about a week, intermittently but now becoming more consistent. +nausea,no vomiting/diarrhea. Appetite is normal. Is random, no [...] which was started 2-3 months ago. Tolerating medicationwell with SE. Mood, stable, taking the Prozac [...] plan. See patient instructions. Edenilson Nicholson DO [address] [place] [address] documented in this encounterOhiohealth O'[facility]07-17-2024 Instructions* Patient Instructions* Edenilson Nicholson DO - 09/18/2023 6:58 PM EDT STOP the methotrexate and the folic acid Use the Aspercream or the Voltaren cream on your inner right knee area on the bursitis area where there is pain Increase the donezapil to 10 mg a day for memory documented in this encounterOhiohealth O[facility]06-15-2024 Telephone encounter Note * Telephone Encounter - Estrellita Morton RN - 08/17/2023 4:07 PM EDT Patient returning call, Patient states her told her [facility] just called. Nothing noted in chart. Asked to check if a message was left. Patient states there is a voicemail but she needs to hang upto listen to it. Line disconnected. [facility] Miscellaneous Notes* Telephone Encounter - Estrellita Morton RN - 08/17/2023 4:07 PM EDT Patient returning call, Patient states her told her [facility] just called. Nothing noted in chart. Asked to check if a message was left. Patient states there is a voicemail but she needs to hang upto listen to it. Line disconnected. documented in this encounterOhiohealth O[facility]06-07-2024 Telephone encounter Note * Telephone Encounter - Armida Warren RN - 08/09/2023 12:18 PM EDT Patient has been identified by name and [...] Please advise. Thank you. Armida Warren RN. [facility] Miscellaneous Notes* Telephone Encounter - Armida Warren RN - 08/09/2023 12:18 PM EDT Patient has been identified by name and [...] you. Armida Warren RN. documented in this encounterOhiohealth O[facility]05-31-2024 Telephone encounter Note * Telephone Encounter - Natali Solano LPN - 08/02/2023 11:42 AM EDT Patient normally had this going to [facility] but now would like it sent to [facility]. Patient has been identified by name and [...] Please advise. Thank you. Natali Solano LPN. [facility]05-31-2024 Miscellaneous Notes* Telephone Encounter - Natali Solano LPN - 08/02/2023 11:42 AM EDT Patient normally had this going to [facility] but now would like it sent to [facility]. Patient has been identified by name and [...] you. Natali Solano LPN. documented in this encounterOhiohealth O'[facility]05-30-2024 Telephone encounter Note * Telephone Encounter - Elizabeth Perez RN - 08/01/2023 3:42 PM EDT Spoke with patient. She states she was looking at an old prescription bottle. She was also not aware that she has refills available with new script sent on 07/16/23. She will contact the pharmacy forrefill. Elizabeth Perez RN [facility]05-30-2024 Miscellaneous Notes* Telephone Encounter - Elizabeth Perez, RN - 08/01/2023 3:42 PM EDT Spoke with patient. She states she was looking at an old prescription bottle. She was also not aware that she has refills available with new script sent on 07/16/23. She will contact the pharmacy forrefill. Elizabeth Perez RN * Telephone Encounter - Krista Schultz OCCA - 08/01/2023 3:21 PM EDT Famotidine 10 mg on active med list with several refills at [facility] in [place]. TC to patient to clarify if wanting to increase to the 40 mg. No answer, left VM to return call. JEFF Morrison * Telephone Encounter - Arlen Paul - 08/01/2023 3:06 PM EDT Patient requesting medication famotidine (PEPCID) 40 mg tablet . PHARMACY: [facility] documented in this encounterOhiohealth O'[facility]05-30-2024 Telephone encounter Note * Telephone Encounter - Krista Schultz OCCA - 08/01/2023 3:21 PM EDT Famotidine 10 mg on active med list with several refills at [facility] in [place]. TC to patient to clarify if wanting to increase to the 40 mg. No answer, left VM to return call. JEFF Morrison [facility]05-30-2024 Telephone encounter Note* Telephone Encounter - Arlen Paul - 08/01/2023 3:06 PM EDT Patient requesting medication famotidine (PEPCID) 40 mg tablet . PHARMACY: [facility]05-14-2024 History of Present illness Narrative* Angeline Ray, PARMJIT.IS ARCHITECT - 07/16/2023 2:25 PM EDT Chief Complaint Patient presents with: Abdominal Pain: Intermittent mid upper abd pain and nausea x months reports urinary frequency x few days. HPI Anaya De La O is a 83 year old female who presents here today for Above Complaints.. Dx on 07/04/2023 with UTI, tx with Macrobid, states still +sx-urinary urgency and frequency. Currently: RUQ and epigastric pain for about a week, intermittently but now becoming more consistent. +nausea, no vomiting/diarrhea. Appetite is normal. Is random, no rhyme or reason. Is not worsenedor better with eating. Has had some extra [...] daily. (Patient not taking: Reported on 06/12/2023) heiie-9u-mrk-epa-fish oil-D3 350 mg-400 mg- 1,000 unit cap [...] activity. Follow up in 1 month. Angeline Ray APRN.CNP documented in this encounterOhiohealth O'[facility]05-06-2024 Telephone encounter Note * Telephone Encounter - Ramona Cantrell MA - 07/08/2023 6:18 PM EDT Pt notified. Ramona Cantrell MA [facility]05-06-2024 Miscellaneous Notes* Telephone Encounter - Ramona Cantrell MA - 07/08/2023 6:18 PM EDT Pt notified. Ramona Cantrell MA * Telephone Encounter - Chapis Valle APRN.CNP - 07/08/2023 1:04 PM EDT I sent over three days more. If not improving follow-up with PCP team Chapis Valle APRN.KEVIN * Telephone Encounter - Nell Barnett RN - 07/08/2023 11:38 AM EDT Pt called and is notified of providers [...] Please call and advise. Nell Barnett RN * Telephone Encounter - Chapis Valle APRN.CNP - 07/08/2023 10:58 AM EDT She should have had enough for 5 days- meaning she still has a day left? Chapis Valle APRN.CNP * Telephone Encounter - Ramona Cantrell MA - 07/08/2023 10:48 AM EDT Pt notified. She finished antibiotic she says and still having urinary frequency. No pain with urination, no visible blood in urine. No back pain, abdominal, nausea or vomiting. No fevers. Anything further recommendations. Ramona Cantrell MA * Telephone Encounter - Ramona Cantrell MA - 07/08/2023 10:47 AM EDT ----- Message from Chapis Valle APRN.CNP sent at 07/08/2023 6:50 AM EDT ----- Urine culture shows infection with E. Coli. The antibiotic she is on will work for this bacteria. Complete entire course. Chapis Valle APRN.CNP documented in this encounterOhiohealth O[facility]05-06-2024 Telephone encounter Note * Telephone Encounter - Chapis Valle APRN.CNP - 07/08/2023 1:04 PM EDT I sent over three days more. If not improving follow-up with PCP team Chapis Valle APRN.CNP [facility]05-06-2024 Telephone encounter Note* Telephone Encounter - Nell Barnett RN - 07/08/2023 11:38 AM EDT Pt called and is notified of providers [...] Please call and advise. Nell Barnett RN [facility]05-06-2024 Telephone encounter Note* Telephone Encounter - Chapis Valle APRN.CNP - 07/08/2023 10:58 AM EDT She should have had enough for 5 days- meaning she still has a day left? Chapis Valle APRN.KEVIN [facility]05-06-2024 Telephone encounter Note* Telephone Encounter - Ramona Cantrell MA - 07/08/2023 10:48 AM EDT Pt notified. She finished antibiotic she says and still having urinary frequency. No pain with urination, no visible blood in urine. No back pain, abdominal, nausea or vomiting. No fevers. Anything further recommendations. Ramona Cantrell MA [facility]-06-2024 Telephone encounter Note* Telephone Encounter - Ramona Cantrell MA - 07/08/2023 10:47 AM EDT ----- Message from Chapis Valle APRN.IS ARCHITECT sent at 07/08/2023 6:50 AM EDT ----- Urine culture shows infection with E. Coli. The antibiotic she is on will work for this bacteria. Complete entire course. Chapis Valle APRN.CNP [facility]05-02-20[facility] History of Present illness Narrative* Chapis Valle APRN.CNP - 07/04/2023 1:47 PM EDT 07/04/2023 Patient presents with: UTI: Frequency and [...] Griseofulvin, Milk Containing Products (Dairy), Tramadol, Vicodin [Hydrocodone- Acetaminophen], and Zoloft [Sertraline Hcl] MEDICATIONS Current Outpatient [...] daily. (Patient not taking: Reported on 06/12/2023) sopzx-1x-zwr-epa-fish oil-D3 350 mg-400 mg- 1,000 unit cap [...] ER with red leg symptoms Chapis Valle APRN.IS ARCHITECT Prescription instructions reviewed with patient as applicable. [...] Level: 3 - Low documented in this encounterOhiohealth O'[facility]05-02-2024 Telephone encounter Note * Telephone Encounter - Armida Warren RN - 07/04/2023 12:55 PM EDT Patient calls for urinary symptoms. Nurse triage completed. Protocol recommends see provider [email or web address] hours. Patient requests appointment today. Declines EC. [...] urination, f. No blood in urine, flank pain,genital sores, urgency, vaginal discharge. Protocols used: Urination Pain - [id number] [facility]-02-2024 Miscellaneous Notes* Telephone Encounter - Armida Warren RN - 07/04/2023 12:55 PM EDT Patient calls for urinary symptoms. Nurse triage completed. Protocol recommends see provider [email or web address] hours. Patient requests appointment today. Declines EC. [...] urination, f. No blood in urine, flank pain,genital sores, urgency, vaginal discharge. Protocols used: Urination Pain - Kas[place]-MQGRT-EX documented in this encounterOhiohealth O'[facility]04-29-2024 Telephone encounter Note * Telephone Encounter - Armida Warren RN - 07/01/2023 12:21 PM EDT Patient calls and notified of results and providers instructions. Patient verbalizes understanding and reports she is feeling much better. Cough is almost gone. Armida Warren RN [facility]04-29-2024 Miscellaneous Notes* Telephone Encounter - Armida Warren RN - 07/01/2023 12:21 PM EDT Patient calls and notified of results and providers instructions. Patient verbalizes understanding and reports she is feeling much better. Cough is almost gone. Armida Warren RN * Telephone Encounter - Elen Moore LPN - 07/01/2023 9:59 AM EDT Message let to return call. * Telephone Encounter - Angeline Ray APRN.IS ARCHITECT - 06/28/2023 6:29 PM EDT Please let Anaya know that her chest xray looks normal. Angeline Ray APRN.CNP documented in this encounterOhiohealth O'[facility]04-29-2024 Telephone encounter Note * Telephone Encounter - Elen Moore LPN - 07/01/2023 9:59 AM EDT Message let to return call. [facility] Work Phone: [phone]) 436-324904-26-2024 Telephone encounter Note* Telephone Encounter - Angeline Ray APRN.CNP - 06/28/2023 6:29 PM EDT Please let Anaya know that her chest xray looks normal. Angeline Ray APRN.CNP [facility]04-26-2024 Telephone encounter Note* Telephone Encounter - Ivette Valenzuela MA - 06/28/2023 8:57 AM EDT Pt informed, verbalized understanding. Ivette Valenzuela MA [facility]04-26-2024 Miscellaneous Notes* Telephone Encounter - Ivette Valenzuela MA - 06/28/2023 8:57 AM EDT Pt informed, verbalized understanding. Ivette Valenzuela MA * Telephone Encounter - Angeline Ray APRN.CNP - 06/28/2023 6:54 AM EDT Please let her know that her swab test is negative for COVID/influenza/RSV. Angeline Ray APRN.CNP documented in this encounterOhiohealth O'[facility]len[facility]04-26-2024 Telephone encounter Note * Telephone Encounter - Angeline Ray APRN.CNP - 06/28/2023 6:54 AM EDT Please let her know that her swab test is negative for COVID/influenza/RSV. Angeline Ray APRN.CNP [facility]04-25-2024 History of Present illness Narrative* Grace Cr RT(R) - 06/27/2023 3:10 PM EDT Radiology Service Progress Note PATIENT NAME: Anaya De La O DATE OF SERVICE: June 27, 2023 TIME: 3:12 PM PATIENT IDENTITY VERIFICATION COMPLETED USING TWO (2) IDENTIFIERS: Name and Date of confirmedby patient verbally. FALL SCREENING: Has the patient had 2 falls in the last year or 1 fall with injury or currently using an Ambulatory Assistive Device (Walker, Cane, Wheelchair, Crutches, etc.)? No PATIENT GENDER DATA: Female. status: : No status: NO. PATIENT RELEVANT IMPLANT DATA REVIEWED: Not Applicable PATIENT PRESENTS WITH AN IMPLANTABLE OR ATTACHED TUBE CUTTER: No RADIOLOGY DEPARTMENT: General X-ray: Exam(s) Completed: Chest X-Ray PERIPHERAL IV DATA: Not applicable SIGNED BY: RT Boy(R) June 27, 2023 3:12 PM documented in this encounterOhiohealth O'[facility]len[facility]04-25-2024 History of Present illness Narrative* Angeline Ray APRN.CNP - 06/27/2023 2:18 PM EDT Chief Complaint Patient presents with: Cough: X 5 days, seems to be worsening, bumps on aretha legs x 2 weeks ago. HPI Anaya De La O is a 83 year old female who [...] 7 tablets every Saturday. Hold Saturday8 dose astook dose early on October 05, 2022. To [...] daily. (Patient not taking: Reported on 06/12/2023) wmzdn-1z-eri-epa-fish oil-D3 350 mg-400 mg- 1,000 unit cap [...] INFLUENZA A/B & RSV NAAT, ROUTINE Angeline Ray APRN.IS ARCHITECT documented in this encounterOhiohealth O'[facility]04-25-2024 Telephone encounter Note * Telephone Encounter - Armida Warren RN - 06/27/2023 9:03 AM EDT Opened in Error. [facility]-25-2024 Miscellaneous Notes* Telephone Encounter - Armida Warren RN - 06/27/2023 9:03 AM EDT Opened in Error. documented in this encounterOhiohealth O'[facility]len[facility]04-25-2024 Telephone encounter Note * Telephone Encounter - Armida Warren RN - 06/27/2023 8:58 AM EDT Patient calls for cough with yellowish-brownish sputum/chunks. [...] TRAVEL: No Protocols used: Cough - Acute [id number] [facility]04-25-2024 Miscellaneous Notes* Telephone Encounter - Armida Warren RN - 06/27/2023 8:58 AM EDT Patient calls for cough with yellowish-brownish sputum/chunks. [...] TRAVEL: No Protocols used: Cough - Acute Kteixqdphc-SSYOD-SN * Telephone Encounter - Yana Serrato LPN - 06/26/2023 10:12 AM EDT Pt calls states was on lisinopril had a little cough and was switched to losartan. She states the cough is much worse on the losartan. This nurse explains not usually a side effect from losartan is aknown one from lisinopril. Explained would send a note to doctor. documented in this encounterOhiohealth O[facility]04-24-2024 Telephone encounter Note * Telephone Encounter - Yana Serrato LPN - 06/26/2023 10:12 AM EDT Pt calls states was on lisinopril had a little cough and was switched to losartan. She states the cough is much worse on the losartan. This nurse explains not usually a side effect from losartan is aknown one from lisinopril. Explained would send a note to doctor. [facility]04-10-[facility] History of Present illness Narrative* Cory Angeline, PARMJIT.IS ARCHITECT - 06/12/2023 11:43 AM EDT Chief Complaint Patient presents with: Follow Up: Abd pain HPI Anaya De La O is a 83 year old female who presents here today for Above Complaints. Per appointment with myself on 05/08/2023: FRANCES De La O is a 83 year old female who presents here today for Above Complaints. Currently: Pain in mid upper abdomen, moves to each side. Is achy, feels a little bloated. Was in ER at [facility] morning and told she had pancreatitis. Just a little bit of nausea, no vomiting. Prior to thisepisode last night, ate a sandwich and strawberry [...] KETOROLAC 60 MG/2 ML INTRAMUSCULAR SOLUTION Angeline Ray APRN.IS ARCHITECT Currently: Abdominal pain-if pigs out with eating [...] 7 tablets every Saturday. Hold Oct.09 dose astook dose early on October 05, 2022. To [...] daily. (Patient not taking: Reported on 06/12/2023) bbdxk-9h-wba-epa-fish oil-D3 350 mg-400 mg- 1,000 unit cap [...] office if no improvement in sx. Angeline Ray APRN.KEVIN documented in this encounterOhiohealth O'Bleness [facility]04-06-2024 Miscellaneous Notes* Telephone Encounter - Sowmya Haywood RN - 06/08/2023 3:27 PM EDT Patient calling requesting health information: patient states her PCP recently stopped her Lisinopril and started her on Losartan due to patient developing a cough. Patient states the cough is gone and is requesting a prescription for Lisinopril be called to pharmacy. Patient has an appointment with PCP scheduled for 06/11/2023. Patient advised to take Losartan until follow up appointment on 06/11/23when she can discuss medications with PCP. Patient [...] have any questions, you can call Nurse unit controller back. documented in this encounterOhiohealth O'Bleness [facility]04-02-2024 Miscellaneous Notes* Telephone Encounter - Angeline Ray APRN.CNP - 06/04/2023 7:08 AM EDT Noted, thank you. Angeline Ray APRN.IS ARCHITECT * Telephone Encounter - Elizabeth Perez RN - 06/03/2023 7:02 PM EDT Patient calling to report her BP is 130/60. She does not know what her BP was when she took second dose. She says she has no dizziness nor lightheadedness. Reports no other symptoms. She will call back if her BP gets any lower or if she develops symptoms of dizziness, lightheadedness or weakness. Elizabeth Perez RN * Telephone Encounter - Elizabeth Perez RN - 06/03/2023 5:50 PM EDT Patient calling to say she took Lisinopril 10 mg this morning and another dose at 5:30 PM. This medication appears to have been discontinued and switched to Losartan 25 mg on 01/04/23. She says she is not taking Losartan. She says her tells her she chose to stay on Lisinopril because she isno longer coughing. She says she is sure she is not taking both medications. Previous Lisinopril order says she may take another 1/2 tablet if needed for BP 140/90 or greater. She says she will call back in one hour with BP reading and increase water intake. Has follow up appointment with Angeline Ray on 06/11/23. Elizabeth Perez RN documented in this encounterOhiohealth O'Bleness Hospital03-22-2024 Miscellaneous Notes* Telephone Encounter - Yana Serrato LPN - 05/24/2023 2:27 PM EDT Spoke with pt gave information provided. Pt voices understanding. * Telephone Encounter - Edenilson Nicholson DO - 05/24/2023 12:19 PM EDT Please inform patient that her Abdominal/pelvis MRI shows no changes as below IMPRESSION: Unchanged lobulated cystic lesion in the pancreatic body, without definite communication to the nondilated duct. No suspicious enhancing nodules. Differential includes a sidebranch IPMN or an oligocystic serous adenoma. Edenilson Nicholson DO documented in this encounterOhiohealth O'Bleness Hospital03-20-2024 NoteHNO ID: [id number] Author: SARA ESTEVES RT(Boogie) Service: ? Author Type: Technologist Type: Progress [...] PATIENT PRESENTS WITH AN IMPLANTABLE OR ATTACHED TUBE CUTTER: No ALLERGIES: Reviewed and unchanged CONTRAST ALLERGY: NO. EXAM: MRI - CONTRAST TYPE: GROUP II PERIPHERAL IV DATA: Ambulatory: A peripheral IV was started in the Left antecubital site with a Angio cath: 20 gauge. RADIOLOGY DEPARTMENT: MR; Exam(s) Completed: Body: Pancreas/Biliary SIGNATURE: Sara Esteves, RT(R) PATIENT NAME: Anaya De La O DATE: May 22, 2023 TIME: 5:55 [facility] History of Present illness Narrative * Sara Esteves, RT(R) - 05/22/2023 5:15 PM EDTSummary: MRI Radiology Service Progress Note DATE OF [...] PATIENT PRESENTS WITH AN IMPLANTABLE OR ATTACHED TUBE CUTTER: No ALLERGIES: Reviewed and unchanged CONTRAST ALLERGY: NO. EXAM: MRI - CONTRAST TYPE: GROUP II PERIPHERAL IV DATA: Ambulatory: A peripheral IV was started in the Left antecubital site with a Angio cath: 20 gauge. RADIOLOGY DEPARTMENT: MR; Exam(s) Completed: Body: Pancreas/Biliary SIGNATURE: Sara Esteves, RT(R) PATIENT NAME: Anaya De La O DATE: May 22, 2023 TIME: 5:55 PM documented in this encounterOhiohealth O'Bleness Hospital03-13-2024 Miscellaneous Notes* Telephone Encounter - Yana Serrato LPN - 05/15/2023 1:01 PM EDT Pts line remains busy . Will need to try again. * Telephone Encounter - Angeline Ray APRN.CNP - 05/15/2023 11:33 AM EDT She does not have an appt with Kandi today. Angeline Ray APRN.IS ARCHITECT * Telephone Encounter - Yana Serrato LPN - 05/15/2023 11:14 AM EDT Line remains busy. Does have appointment today with Kandi . Will let her know at that appt. * Telephone Encounter - Yana Serrato LPN - 05/15/2023 9:38 AM EDT Line busy will need to try back. * Telephone Encounter - Edenilson Nicholson DO - 05/14/2023 5:14 PM EDT Yes, okay to restart vitamins and prozac She should be taking losartan 25 mg a day and NOT lisinopril Edenilson Nicholson DO * Telephone Encounter - Cristhian Faulkner RN - 05/13/2023 1:43 PM EDT Patient phoned and given provider's message below [...] be taking losartan. Pt reports she is not,she is still taking lisinopril and has been getting refills at the pharmacy on it (lisinopril was d/c'd on 01-04-23). Please advise pt. Transferred to pss to schedule MRI. * Telephone Encounter - Ivette Valenzuela - 05/09/2023 11:17 AM EST Attempted to contact patient for a second time and line seems to be busy. Just beeping. Ivette Valenzuela * Telephone Encounter - Yana Serrato LPN - 05/08/2023 6:52 PM EST Line busy will need to try back. * Telephone Encounter - Angeline Ray APRN.KEVIN - 05/08/2023 6:04 PM EST Please let Anaya/her know that her ultrasound today looks completely normal. Dr. Garrisonplaced an order on 01/16/2023 for a repeat MRI of her pancreas due to monitoring a lesion. Please schedule this sooner due to recent lab findings, assessment, and ER dx. Please assist her to schedulethis appointment. Angeline Ray APRN.CNP documented in this encounterOhiohealth O'Bleness [facility]03-06-2024 NoteHNO ID: [id number] Author: GETACHEW LANE TECHNOLOGIST Service: ? Author Type: Technologist Type: Progress Notes Filed: 05/08/2023 14:24 Note Text: Radiology Service Progress Note PATIENT NAME: Anaya De La O DATE OF SERVICE: May 08, 2023 TIME: [...] PATIENT PRESENTS WITH AN IMPLANTABLE OR ATTACHED TUBE CUTTER: No RADIOLOGY DEPARTMENT: Ultrasound PERIPHERAL IV DATA: Not applicable SIGNED BY: TECHNOLOGIST Precious May 08, 2023 2:24 [facility]03-06-2024 History of Present illness Narrative* Getachew Lane TECHNOLOGIST - 05/08/2023 2:00 PM EST Radiology Service Progress Note PATIENT NAME: Anaya De La O DATE OF SERVICE: May 08, 2023 TIME: 2:24 PM PATIENT IDENTITY VERIFICATION COMPLETED USING TWO (2) IDENTIFIERS: Name and Date of confirmedby patient verbally. FALL SCREENING: Has the patient had 2 falls in the last year or 1 fall with injury or currently using an Ambulatory Assistive Device (Walker, Cane, Wheelchair, Crutches, etc.)? No PATIENT GENDER DATA: Female. status: : No status: NO. PATIENT RELEVANT IMPLANT DATA REVIEWED: Yes PATIENT PRESENTS WITH AN IMPLANTABLE OR ATTACHED TUBE CUTTER: No RADIOLOGY DEPARTMENT: Ultrasound PERIPHERAL IV DATA: Not applicable SIGNED BY: Getachew Lane, TECHNOLOGIST May 08, 2023 2:24 PM documented in this encounterOhiohealth O'Blen[facility]03-06-2024 Instructions* Patient Instructions* Angeline Ray APRN.CNP - 05/08/2023 9:22 AM EST Have your ultrasound, I should have this result later today. Diet: Liquid diet for 1-2 days. As long as you're tolerating it... Soft diet for 2-3 days. As long as you're tolerating it... Introduce your regular foods, but try to stay away from acidic and spicy foods. documented in this encounterOhiohealth O'[facility]leness [facility]03-06-2024 History of Present illness Narrative* Angeline Ray APRN.CNP - 05/08/2023 8:56 AM EST Chief Complaint Patient presents with: ER follow up abdominal pain HPI Anaya De La O is a 83 year old female who presents here today for Above Complaints. Currently: Pain in mid upper abdomen, moves to each side. Is achy, feels a little bloated. [facility] and told she had pancreat[facility]. Just a little bit of nausea, no vomiting. Prior to thisepisode last night, ate a sandwich and strawberry [...] 7 tablets every Saturday. Hold Oct.09 dose astook dose early on October 05, 2022. To [...] Take 5,000 Units by mouth once daily. vhdym-4v-znl-epa-fish oil-D3 350 mg-400 mg- 1,000 unit cap [...] KETOROLAC 60 MG/2 ML INTRAMUSCULAR SOLUTION Angeline Ray APRN.KEVIN documented in this encounterOhiohealth O'[facility]len[facility]03-04-2024 Miscellaneous Notes* Telephone Encounter - Jenny Ynu RN - 05/06/2023 11:16 AM EST SPECIALTY CARE COORDINATION FOLLOW-UP NOTE Spoke to Anaya. She confirmed that she wants to cancel her surgery. She says she spoke to Dr. Nicholson and that caritowill continue to work on her pelvic floor physical therapy. She said thank you; she was going to cry. Explained that if she would ever need us to call. She thanked me for the phone call. Jenny Yun RN May 06, 2023 documented in this encounterOhiohealth O'Bleness Hospital02-14-2024 History of Present illness Narrative* Edenilson Nicholson, - 04/17/2023 10:00 PM EST CC: Anaya De La O is a 83 year old female who presents to the office for follow up HPI: Seen in office 08/01/22 as below Rectal prolapse, has now had 2 events of rectal prolapse, once in Jan 2022 and then again in July 2022. She was seen in the EMERGENCY DEPARTMENT by Dr. Berman and had reduction of the prolapse.She was seen by Colorectal surgeon Dr. Villalobos [...] short term memory such as unsure if shetook her medicaitons or what she ate for [...] with her today in the office, Don Mood, taking prozac 10 mg a day as [...] 7 tablets every Saturday. Hold Saturday.8 dose astook dose early on October 05, 2022. To [...] Take 5,000 Units by mouth once daily. yyvan-0c-arf-epa-fish oil-D3 350 mg-400 mg- 1,000 unit cap [...] nares without drainage, pharynx without erythema, exudate, lesions,or drainage. Uvula midline. Neck: No LAD, no [...] aren't interested in full memory testing at [facility] which is what has been offered. She [...] aren't interested in full memory testing at [facility] which is what has been offered. She [...] See patient instructions. Edenilson Nicholson DO [address] [place] [address] documented in this encounterOhiohealth O'Bleness Hospital12-14-2023 Miscellaneous Notes* Telephone Encounter - Patti Harp - 02/14/2023 2:21 PM EST Called patient about rescheduled appts lvm documented in this encounterOhiohealth O'Bleness Hospital12-13-2023 Miscellaneous Notes* Telephone Encounter - Jenny Yun RN - 02/13/2023 2:44 PM EST SPECIALTY CARE COORDINATION FOLLOW-UP NOTE Spoke to Anaya and Jose Guadalupe, . She accepted a new surgery date of 05/27 and pre op 05/26 pre op appointment date since Dr. Villalobos will be out of town on 05/13. Explained that if they have any questions to please call the office at [phone]. They stated they understood and thanked me for the phone call. Jenny Yun RN February 13, 2023 documented in this encounterOhiohealth O'Bleness Hospital12-06-2023 Miscellaneous Notes* Telephone Encounter - Yi Jones RN - 02/06/2023 11:20 AM EST Date of last office: 01/28/2023 Date of next office visit: 03/11/2023 Requested Prescriptions Pending Prescriptions Disp Refills Azelaic Acid (FINACEA) 15 % gel 15 g 1 Sig: Apply to affected area once daily. Please advise. Thank you. Yi Jones RN. documented in this encounterOhiohealth O'Bleness Hospital12-05-2023 Miscellaneous Notes* Telephone Encounter - Tobi Burnett LPN - 02/05/2023 2:03 PM EST Pt calling requesting refill. Advises she used this rx today and would like to keep this on hand for her appointments. Call pt only if problem. Tobi Burnett LPN documented in this encounterOhiohealth O'Bleness Hospital11-27-2023 History of Present illness Narrative* Kandi Park APRN.CNP - 01/28/2023 12:40 PM EST Above L eyebrow (site) was assessed and 1 sutures was removed as ordered. No dressing required. Patient instructed on wound care and verbalized understanding. Kandi Park APRN.CNP documented in this encounterOhiohealth O'Bleness Hospital11-22-2023 Miscellaneous Notes* Telephone Encounter - Kandi Park APRN.CNP - 01/23/2023 12:26 PM EST Glad to hear. Thank you, Kandi Park APRN.CNP * Telephone Encounter - Mckenna Dc LPN - 01/23/2023 12:06 PM EST Patient notified of results, verbalizes understanding of instructions. Pt stated she is no longer having urinary sx. Mckenna Dc LPN * Telephone Encounter - Kandi Park APRN.CNP - 01/23/2023 11:12 AM EST Please call patient and let her know that urine culture was negative. No signs of bacteria or UTI. Please see if she is still having urinary symptoms. Thank you, Kandi Park APRN.IS ARCHITECT documented in this encounterOhiohealth O'Bleness Hospital11-20-2023 History of Present illness Narrative* Kandi Park APRN.CNP - 01/21/2023 8:40 AM EST Chief Complaint Patient presents with: fall: Hit above eye area glasses cut has on stitch per . Happened 2 days ago saturday , theytold then 2-3 days needed looked at by pcp HPI Anaya De La O is a 82 year old female who presents here today for Above Complaints.. Anaya is an established patient of Dr. Bharat DO. She is a new patient to me today. Concerns today... ER follow-up --- [facility] visit on 01/19/23 d/t fall and [...] started yesterday. Hx of recurrent UTI from timeto time. Pt denies any flank or pelvic [...] 7 tablets every Saturday. Hold Oct.09 dose astook dose early on October 05, 2022. To [...] daily. (Patient not taking: Reported on 11/26/2022) cvpot-5l-rzx-epa-fish oil-D3 350 mg-400 mg- 1,000 unit cap [...] noted. Bruising below eyelid and circular to lateraltemporal area. Head: Normocephalic, no masses, lesions, + [...] agreeable to treatment plan. Kandi Contreras APRN.KEVIN [address] [place] [address] documented in this encounterOhiohealth O'Bleness [facility]11-19-2023 Miscellaneous Notes* Telephone Encounter - Mellisa Hathaway RN - 01/20/2023 12:34 AM EST Patient calling with question about prophylactic antibiotics. Patient denies any new or worsening symptoms of which a provider is not aware: Yes. Patient states she had a fall 01/19/23 and has a small laceration above her eye. Was seen at [facility] and wound was cleaned and a suture placed. Denies any signs of infection. Questioning whether she needs prophylactic antibiotics since she has 2 knee replacements (most recent was done in 2020).Advised this is usually done for dental procedures, but not necessarily for other types of injuries. Advised to assess wound daily and to call back if any signs of infection , including fever, redness, increased pain, warmth or drainage. Verbalized understanding. Also discussed use of ice for 48 hours to her eye, which she states is quite bruised. documented in this encounterOhiohealth O'Bleness [facility]11-18-2023 Hospital Discharge instructions Patient Education 01/19/2023 12:18:53 [...] area for up to 20 minutes at atime. Do this as often as directed. Use [...] the ears or bruising around the eyes 1918-[address] [employer] [place] [address]. All rights reserved. This information is not intended as a substitute for professional medical care. Always follow yourhealthcare professional's instructions. Follow Up Care 01/19/2023 11:57:28 With:EDENILSON NICHOLSON DO Address: [address] [place] [address]- When:2-4 days [facility] 11-18-2023 Note Discharge Instructions Thank you for allowing [facility] to assist you with your healthcare needs. The following is importantdischarge information regarding your hospital visit. Diagnosis from Today's Visit Fall Head Laceration What to Do Next Instructions from Your Care Team No qualifying data available. Post Acute Orders No qualifying data available. You Need to Schedule the Following Appointments Follow Up with EDENILSON NICHOLSON DO When Within 2-4 days Where: [address] [place] [address]- Allergies No active allergies Medications Please ask your primary doctor or pharmacist before taking any other medication not listed, including over the counter drugs, herbal medications, vitamins and or supplements as they may interact withyour home medications. Please take this list to [...] area for up to 20 minutes at atime. Do this as often as directed. Use [...] the ears or bruising around the eyes [id number] [employer]. [address] [place] [address]. All rights reserved. This information is not intended as a substitute for professional medical care. Always follow yourhealthcare professional's instructions. Additional Information VACCINATE! IT SAVES LIVES! Members of the community who have not yet received the COVID-19 vaccine and would like to receive it can visit one of [facility] vaccine clinics. There are many vaccine clinic locations within the [facility]. For locations and available times, please visit www.gettheshot.coronavirus.[place].gov/. It is important to note that some COVID mobile vaccine clinics are held outdoors and may be canceled in rainy or stormy conditions. To learn more about pediatric vaccinations (ages 5-11), we invite you to visit the [facility] webpage. https://www.[facility].org/pages/3136-Tekur-Blrdvfztfon-Kufwgirwlp-Mvsjh-Cyf stions.htmlTo learn more about the COVID-19 vaccine, we invite you to visit the CDC website for a list of frequently asked questions. https://www.cdc.gov/coronavirus/2019-ncov/vaccines/faq.html [facility] Patient Portal Access Instructions: Stay connected with your healthcare team and access your personal medical information anytime with the [facility] Patient Portal. If you would like a full copy of your medical records please contact the [facility] Medical Records Department Saturday through Saturday between 8a.m. and 4:30p.m. Please follow the directions below to access the portal: 1.Access the email account you provided upon registration to the [facility].2.Look for an invitation email from [facility].3.Open the email and access the invitation link: Accept Invitation to [facility]4.Fill in the required julio to create your account. Sign into www.[employer] with your username and password that you [...] you will allow to register on the [employer] Patient Portal for access to your information. You can also access the [employer] Patient Portal on the [employer] rafia. Simply click on Health Records under [employer] and then click on the [employer] logo. HOW TO SAFELY DISPOSE OF PRESCRIPTION MEDICATIONS Please use one of the following methods to safely dispose of your unused medications. 1.Use a drug disposal kit: the drug disposal pouch allows you to safely discard your old and unuseddrugs. Ask your nurse to give you one when you are discharged.2.Visit a local take-back location: Many local pharmacies and police departments have programs that collect old and unwanted prescriptiondrugs. Call your local pharmacy or go to http://[employer]Card.[employer]flakesGB/1X0Em3i to find one close to you.3.Make use of household items: Use cat litter or old coffee grounds to dispose medications if other options arenot available. Mix your drugs with these household products, seal them in an airtight container andthrow it into the garbage. Call [facility]: [phone] to be sure your drugs can be [...] reviewed and explained to me and I,ANAYA DE LA O understand my current condition and have read and understand these discharge instructions. I have received a written copy of the plan/instructions. If I have questions, I am aware that I should contactmy doctor. 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 Patient and spouse verbalizes understanding. 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 A FOLLOW-UP STUDY COULD BE OBTAINED IN 6 MONTHS TO ASSESS FOR ANY CHANGE IN SIZE. Would recommend this follow up MRI in 6 months. I have ordered this testing to reschedule Edenilson Nicholson DO documented in this encounterOhiohealth O'Bleness Hospital11-13-2023 History of Present illness Narrative* Michael Del Castillo PA-C - 01/14/2023 4:10 PM ESTAssociated Order(s): Large Joint Arthro/Inj: L knee joint Post-Procedure Diagnose(s): Status post total left knee replacement; Pain due to knee joint prosthesis, subsequent encounter Anaya comes today at our request for a left knee aspiration. We saw her last week. She has had 10days of left knee pain and labs show an elevated CRP of 3.7 and elevated SED rate of 26. The left knee is a primary knee that has been doing well since 03/28/20 when it was pt in by Dr. Purdy. Large Joint Arthro/Inj: L knee joint Informed Consent Consent Obtained: Verbal [place] Protocol A moment to CARE was completed. [...] Michael Del Castillo PA-C documented in this encounterOhiohealth O'Bleness Hospital11-13-2023 Miscellaneous Notes* Telephone Encounter - Patti Harp - 01/14/2023 2:01 PM EST Called patient to let her know appts are schedule and to confirm with me-phone kept ringing and ringing documented in this encounterOhiohealth O'Bleness Hospital11-10-2023 History of Present illness Narrative* Michael Del Castillo PA-C - 01/11/2023 7:59 AM EST CHIEF COMPLAINT: Anaya De La O is a 82 year old female who [...] no audible wheezing, no labored breathing, symmetric thoracicexcursion Musculoskeletal: Significant improvement in range of motion [...] results and radiologist's interpretation, available in the [facility] health record. Images were reviewed with [...] due to knee joint prosthesis, initial encounter ([facility]) (primary encounter diagnosis) (Z96.652) Status [...] Michael Del Castillo PA-C documented in this encounterOhiohealth O'Blen[facility]11-10-2023 History of Present illness Narrative* Staci Redmond Tech - 01/11/2023 7:20 AM EST Radiology Service Progress Note PATIENT NAME: Anaya De La O DATE OF SERVICE: January 11, 2023 TIME: 7:29 AM PATIENT IDENTITY VERIFICATION COMPLETED USING TWO (2) IDENTIFIERS: Name and Date of confirmedby patient verbally. FALL SCREENING: Has the patient had 2 falls in the last year or 1 fall with injury or currently using an Ambulatory Assistive Device (Walker, Cane, Wheelchair, Crutches, etc.)? No PATIENT GENDER DATA: Female. status: : No status: NO. PATIENT RELEVANT IMPLANT DATA REVIEWED: Not Applicable RADIOLOGY DEPARTMENT: General X-ray: Exam(s) Completed: Lower Extremity X- Ray(s): Knee, AP / Lat / Merchant Left and Wt. Bearing PERIPHERAL IV DATA: Not applicable SIGNED BY: Shikha Alcazar January 11, 2023 7:29 AM * Staci Redmnod Tech - 01/11/2023 7:20 AM EST Radiology Service Progress Note PATIENT NAME: Anaya De La O DATE OF SERVICE: January 11, 2023 TIME: 8:22 AM PATIENT IDENTITY VERIFICATION COMPLETED USING TWO (2) IDENTIFIERS: Name and Date of confirmedby patient verbally. FALL SCREENING: Has the patient had 2 falls in the last year or 1 fall with injury or currently using an Ambulatory Assistive Device (Walker, Cane, Wheelchair, Crutches, etc.)? No PATIENT GENDER DATA: Female. status: : No status: NO. PATIENT RELEVANT IMPLANT DATA REVIEWED: Not Applicable RADIOLOGY DEPARTMENT: General X-ray: Exam(s) Completed: Lower Extremity X- Ray(s): Knee, AP / Lat / Merchant Left and Wt. Bearing PERIPHERAL IV DATA: Not applicable SIGNED BY: Shikha Alcazar January 11, 2023 8:22 AM documented in this encounterOhiohealth O'Blen[facility]11-08-2023 Miscellaneous Notes* Telephone Encounter - Patti Harp - 01/09/2023 3:01 PM EST Called patient on 01/09 to let her know I scheduled pre ops and UDS for her on 04/23 documented in this encounterOhiohealth O'Blen[facility]11-01-2023 Miscellaneous Notes* Telephone Encounter - Patti Harp - 01/02/2023 1:39 PM EDT Called patient to schedule pre ops and post ops . Patient requested that I call her in a week to set up appointments. I did secure a UDS with Dr Zayas on 04/25 and with pre op consent as well. documented in this encounterOhiohealth O'Bleness Hospital10-26-2023 History of Present illness Narrative* Song Weller RT(R) - 12/27/2022 8:40 AM EDT Radiology Service Progress Note DATE OF SERVICE: [...] Pancreas/Biliary SIGNATURE: RT Bhargav(R) PATIENT NAME: Anaya De La O DATE: December 27, 2022 TIME: 8:51 AM documented in this encounterOhiohealth O'Bleness Hospital10-10-2023 Miscellaneous Notes* Telephone Encounter - Armida Warren RN - 12/11/2022 9:10 AM EDT Patient calls and notified of results. Patient verbalizes understanding. Armida Warren RN * Telephone Encounter - Madeline Horn Cma - 12/11/2022 8:58 AM EDT Left message for patient to return call to office Madeline Horn Cma * Telephone Encounter - Angeline Ray APRN.CNP - 12/10/2022 7:21 PM EDT Please let her know that her urine culture did not show a UTI. Angeline Ray APRN.CNP documented in this encounterOhiohealth O'Bleness Hospital09-25-2023 History of Present illness Narrative* Frank Wharton RT(R) - 11/26/2022 2:00 PM EDT Radiology Service Progress Note PATIENT NAME: nAaya De La O DATE OF SERVICE: November 26, 2022 TIME: 2:06 PM PATIENT IDENTITY VERIFICATION COMPLETED USING TWO (2) IDENTIFIERS: Name and Date of confirmedby patient verbally. FALL SCREENING: Has the patient [...] 26, 2022 2:06 PM documented in this encounterOhiohealth O'Bleness Hospital09-25-2023 History of Present illness Narrative* Nel Zayas MD - 11/26/2022 9:33 AM EDT Surgica request placed for RA rectopexy and sacrocolpopexy on SaturdayMay 13 documented in this encounterOhiohealth O'Blen[facility]09-21-2023 Miscellaneous Notes* Telephone Encounter - Jenny Yun RN - 11/22/2022 4:24 PM EDT SPECIALTY CARE COORDINATION FOLLOW-UP NOTE Spoke to Anaya. She says that she wants to have the surgery with Drs. Villalobos and Marquez. Explained that I would let them know and I will get back with her with a surgery date. She thanked me for the phone call. Signature Jenny Yun RN November 22, 2022 documented in this encounterOhiohealth O'Bleness Hospital09-21-2023 Miscellaneous Notes* Telephone Encounter - Jenny Yun RN - 11/22/2022 12:19 PM EDT SPECIALTY CARE COORDINATION FOLLOW-UP NOTE Unable to reach Anaya. Left a voice message to follow up from this week's office visit with Dr. Villalobos if Anaya is interested to schedule surgery with Drs. Villalobos and Marquez. Asked to call the office at [phone] to let us know. Signature Jenny Yun RN November 22, 2022 documented in this encounterOhiohealth O'Blen[facility]09-19-2023 History of Present illness Narrative* Marion Self RT(R) - 11/20/2022 2:00 PM EDT Radiology Service Progress Note PATIENT NAME: Anaya De La O DATE OF SERVICE: November 20, 2022 TIME: 3:47 PM PATIENT IDENTITY VERIFICATION COMPLETED USING TWO (2) IDENTIFIERS: Name and Date of confirmedby patient verbally. FALL SCREENING: Has the patient [...] 20, 2022 3:47 PM documented in this encounterOhiohealth O'Blen[facility]09-18-2023 History of Present illness Narrative* Mellisa Villalobos DO - 11/19/2022 2:00 PM EDT COLORECTAL SURGERY Follow-up November 16, 2022 Chief [...] patulous Resting tone: WEAK Squeeze tone: WEAK Technical Sales Associate present: Yes Large rectocele, small full thickness prolapse Ok rest , no squeeze, closed anus Assessment Medical Decision Making: Assessment & Diagnosis: Anaya De La O is a 82 year old female with large rectocele and rectal prolapse Data Reviewed: Tests & Documents Reviewed/ordered: Review of prior notes from chart I have independently interpreted: Defecography I have discussed Anaya De La O's treatment plan and/or results with patient and her . Treatment plan: Dr Zayas-- urodynamics We again discussed with the patient and her elective surgery for prolapse. Possible worsening of symptoms after repair. Jenny will call her on to offer surgery date, if she still wants to do surgery . Will needa combo with Dr. Zayas date She keeps changing her mind if she wants surgery or not. I am giving her another few days to make afinal decision Mellisa Villalobos DO Pelvic Floor Department of Colorectal Surgery Risk of morbidity, mortality and/or complications of treatment plan: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 have shown up to 86% of patients experience improvement in obstructed defecation and up to 92% of patients experience improvement in fecal incontinence. However, some patients do not see a drastic improvement of their bowel symptoms after surgery. Additional treatments, such as dietary modif ication, stool softeners, pelvic floor physical therapy or [...] taking narcotic pain medication. documented in this encounterOhiohealth O'Blen[facility]03-07-2023 History of Present illness Narrative* Mellisa Villalobos DO - 05/08/2022 11:44 AM EST COLORECTAL SURGERY PELVIC FLOOR CLINIC May 12, 2022 Anaya De La O 82 year old Chief Complaint: Prolapse History of Present Illness: Anaya De La O is a 82 year old year old female presents for follow up in pelvic floor combinedclinic for evaluation for combined repair of multi [...] patulous Resting tone: WEAK Squeeze tone: WEAK Technical Sales Associate present: Yes Large rectocele and enterocele Descended [...] Take 5,000 Units by mouth once daily. kddff-7d-eys-epa-fish oil-D3 350 mg-400 mg- 1,000 unit cap [...] during consultation. Assessment Assessment and Plan: Anaya De La O is a 82 year old with multicompartment [...] and pathology reports, reviewing manometry and EMG resul ts, reviewing defecography images, reviewing physical exam findings and discussing surgical and non-surgical treatment options. documented in this encounterOhiohealth O'Blen[facility]03-07-2023 History of Present illness Narrative* Nel Zayas MD - 05/08/2022 10:27 AM EST Female Pelvic Medicine & Reconstructive Surgery Consult ([facility]) CHIEF COMPLAINT: Anaya De La O is a 82 year old female who presents for consultation requested by Dr. Villalobos for an opinion regarding rectal prolapse, pelvic organ prolapse, urinary frequency and recurrent UTIs. This visit was performed in conjunction with Dr. Villalobos. Last visit: 02/16/22 Visit with Lynne Silverman APRN. IS ARCHITECT, Urology on 02.16.22. ASSESSMENT/PLAN: ASSESSMENT/PLAN: 1. Rectocele - ICD9: 618.04, [...] . . . No growth (<1,000 CFU/ml) <10,000CFU/ml (A) . . . No growth 5 [...] 10,000 -<50,000 CFU/ml Mixed microbiota (A) 10,000 -<50,000CFU/ml Normal urogenital ji 5. Urinary frequency - leaking on the way to the bathroom, especially when getting up at night - typically gets up 2-3 times/night - NORMA if bladder is full 6. 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 (Patient not taking: Reportedon 05/07/2022) meloxicam (MOBIC) 15 mg tablet TAKE [...] Take 5,000 Units by mouth once daily. ajpew-2y-kwi-epa-fish oil-D3 350 mg-400 mg- 1,000 unit cap [...] ROS obtained by others. Nel Zayas MD Technical Sales Associate offered: Patient declines. OBJECTIVE: BP 148/55 (BP [...] Bladder scan: PVR 0 mL IMPRESSION: Anaya De La O is a 82 year old ( x3) female with Pelvic Organ Prolapse, Urge Urinary Incontinence, Urinary Frequency, Nocturia. Pelvic [...] and POP recurrence. Discussed sacrocolpopexy, absorbable grafts, d/[place] tissue repairs and obliterative procedures. We spoke about the vaginal and abdominal routes of repair as well as use of mesh and use of sutures to assist with the prolapse. We also spoke about mesh augmented repairs (sacrocolpopexy) and discussed the FDA warning briefly (stressing that the mesh used in sacrocolpopexy was not part of the original FDA vaginal mesh warningin 2010). Patient understands the risks associated with [...] frequency. We again reviewed the treatment options forOAB including medications (anticholinergics and beta agonists), intradetrusor [...] symptoms (15% if incontinence procedure, 20% for [place] tissue repair, 5-15% if sacrocolpopexy), urinary retention [...] would like to discuss with family before schedulingsurgery 2. OAB and/or Urge Urinary Incontinence: We [...] effects including dry eye, dry mouth, constipation, urinaryretention and sometimes confusion in elderly patients. We [...] Past Histories independently gathered by the clinical support services rep and the remaining scribed note accurately describes my personal service to the patient. Provider Attestation: Nel Raya MD, personally performed the services described in this documentation. All medical record entries made by the scribe were at my direction and in my presence. I have reviewed thechart and discharge instructions (if applicable) and agree that the record reflects my personal perf ormance and is accurate and complete. documented in this encounterOhiohealth O'Blen[facility]03-06-2023 Miscellaneous Notes* Telephone Encounter - Edenilson Nicholson DO - 05/07/2022 4:16 PM EST Agree with recommendations below Edenilson Nicholson DO * Telephone Encounter - Jade Escalante LPN - 05/07/2022 2:45 PM EST Patient calling said she cut her arm [...] colonoscopy later this week and appts at [facility] tomorrow. Advised she should not have to cancel any of her appts. documented in this encounterOhiohealth O'Blen[facility]03-06-2023 History of Present illness Narrative* Clemencia Fofana RN - 05/07/2022 3:37 PM EST Female Pelvic Medicine & Reconstructive Surgery Consult CHIEF COMPLAINT: Anaya De La O is a 82 year old female who [...] . . . No growth (<1,000 CFU/ml) <10,000CFU/ml (A) . . . No growth 5 [...] 10,000 -<50,000 CFU/ml Mixed microbiota (A) 10,000 -<50,000CFU/ml Normal urogenital ji 5. Urinary frequency - leaking on the way to the bathroom, especially when getting up at night - typically gets up 2-3 times/night - NORMA if bladder is full 6. 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 Kandi Park APRN.KEVIN * Telephone Encounter - Cristhian Faulkner RN - 05/03/2022 8:54 AM EST Patient reports she has missed 2-3 weeks of taking her methotrexate because she was taking PCN and amoxicillin. Reports she is done with the PCN and amoxicillin now and would like to know if she can start taking her methotrexate again? Please advise patient. documented in this encounterOhiohealth O'Blen[facility]02-24-2023 Miscellaneous Notes* Telephone Encounter - Mellisa Villalobos DO - 04/27/2022 11:16 AM EST Spoke to the , discussed results of defecography. Patient is scheduled for colonoscopy on May 10. She will then be seen in the combined pelvic floorclinic by myself and Dr. Zayas. I reassured the that this is not a condition that enterocele and rectocele is not a condition that would require ever an emergency intervention. This is an elective quality of life surgery, she can decide not to pursue the operation and continue living as is. Mellisa Villalobos DO Pelvic Floor Department of Colorectal Surgery documented in this encounterOhiohealth O'Blen[facility]02-21-2023 History of Present illness Narrative* Edenilson Nicholson DO - 04/24/2022 4:57 PM EST CC: Anaya De La O is a 82 year old female who [...] Take 5,000 Units by mouth once daily. czrbx-2k-vip-epa-fish oil-D3 350 mg-400 mg- 1,000 unit cap [...] nares without drainage, pharynx without erythema, exudate, lesions,or drainage. Uvula midline. Neck: No LAD, no [...] 569.89, ICD10: K63.4 - f/u with [facility] BUSINESS RISK CONSULTANT and colorectal surgeon for potential repair of her vaginal prolapse and rectal prolapse. 3. Pelvic floor dysfunction in female - ICD9: 618.83, ICD10: M62.89 - f/u with [facility] BUSINESS RISK CONSULTANT and colorectal surgeon for potential repair of [...] plan. See patient instructions. Edenilson Nicholson DO [address] [place] [address] documented in this encounterOhiohealth O'Bleness Hospital02-17-2023 Miscellaneous Notes* Telephone Encounter - Jenny Yun RN - 04/20/2022 4:21 PM EST SPECIALTY CARE COORDINATION FOLLOW-UP NOTE Spoke to Pillo, ; returning my call. Requesting to discuss the defecography results. Requesting a telephone call instead of a virtual with Dr. Villalobos. Agreed to telephone visit on 04/27 at 11am. All questions answered and he thanked me for the phone call. Signature Jenny Yun RN April 20, 2022 documented in this encounterOhiohealth O'Blen[facility]02-17-2023 Miscellaneous Notes* Telephone Encounter - Jenny Yun RN - 04/20/2022 11:15 AM EST SPECIALTY CARE COORDINATION FOLLOW-UP NOTE Unable to reach Anaya. Left a voice message that I was calling in reference to a question she had when speaking to [facility] about the 03/08/2022 defecography test. Asked if she wanted to further question to call the office at [phone]. Signature Jenny Yun RN April 20, 2022 documented in this encounterOhiohealth O'Blen[facility]02-17-2023 History of Present illness Narrative* Angeline Ray, PARMJIT.IS ARCHITECT - 04/20/2022 9:21 AM EST Chief Complaint Patient presents with: Leg Pain: Aretha lower legs x months, worsening pain, had both knees replaced couple years ago. HPI Lytle M Jamariephraim is a 82 year old female who presents here today for Above Complaints.. Today: Had 2 lower teeth pulled earlier this week as well as infection. Was on PCN prior to tooth extraction. Is on amoxicillin 500 tid right now and finishes tomorrow morning. Pain has for the most part resolved. Legs-fronts of her legs have started hurting yesterday morning. [place] a little better this morning but is [...] Take 5,000 Units by mouth once daily. rcmkx-9f-hok-epa-fish oil-D3 350 mg-400 mg- 1,000 unit cap [...] use. Assessment negative, continue to monitor. Angeline Ray APRN.CNP Greater than 50% of 40-minute visit spent face to face with patient in counseling and education. documented in this encounterOhiohealth O'Bleness [facility]02-16-2023 Miscellaneous Notes* Telephone Encounter - Elizabeth Perez RN - 04/19/2022 1:07 PM EST Patient requests appointment. Scheduled tomorrow with Angeline [...] last menstrual period? No Protocols used: Leg Oyaj-VZWAA-OY documented in this encounterOhiohealth O'[facility]len[facility]02-14-2023 History of Present illness Narrative* Nel Zayas MD - 04/17/2022 6:01 AM EST Order placed for UDS documented in this encounterOhiohealth O'Bleness Hospital02-13-2023 Instructions* Patient Instructions* Mellisa Villalobos DO - 04/16/2022 11:33 AM EST Images from the original note were not included. Fiber supplement - start with tspoon a day (metamucil, benafiber, konsyl...) Drink more water Probiotic (align) -- activia yogurt Magnesium oxide 400 mg a day Smooth move tea 6. Colonoscopy Appointment for combined pelvic floor clinic to be evaluated by urogynecologist Dr. Nel Perez 07/03/22 Bowel Preparation Instructions for: Golytely, Nulytely, Trilyte or Colyte (polyethylene glycol 3350and electrolytes) IF YOU DO NOT FOLLOW THESE [...] If you do not have a responsible bobtail driver (family member or friend) with you to take you home, your exam cannot be done with sedation and will be cancelled. Please bring a list of all of your current medications, including any Over-the Counter medications with you. Medications If you take insulin, diabetic medications or blood thinners such as Coumadin (warfarin), Plavix (clopidogrel), Ticlid (ticlopidine hydrochloride), Agrylin (anagrelide), Xarelto (Rivaroxaban), Pradaxa(Dabigatran), Eliquis (Apixaban), and Effient (Prasugrel). You MUST [...] preparation solution at your local pharmacy or drugstore pharmacy. 1 02/2019 Bowel Preparation Instructions for: Golytely, Nulytely, Trilyte or Colyte (polyethylene glycol 3350and electrolytes) Three (3) Days Before Your Colonoscopy [...] your exam. 2 02/2019 documented in this encounterOhiohealth O'Blen[facility]02-13-2023 History of Present illness Narrative* Mellisa Villalobos DO - 04/16/2022 9:49 AM EST COLORECTAL SURGERY Follow-up April 16, 2022 Chief complaint: Constipation HPI: Anayabk De La O is a 82 year old F who [...] patulous Resting tone: WEAK Squeeze tone: WEAK Technical Sales Associate present: Yes Large rectocele and enterocele Descended perineum , weak pelvic floor Assessment Medical Decision Making: Assessment & Diagnosis: Anaya De La O is a 82 year old female with rectal prolapse. Data Reviewed: Tests & Documents Reviewed/ordered: Review of prior notes from chart I have independently interpreted: CT Abdomen, Defecography I have discussed Anaya De La O's treatment plan and/or results with patient . Treatment plan: Colonoscopy is ordered Will bring the patient to the multidisciplinary pelvic floor clinic for consideration of combined repair with Dr. Marquez Villalobos DO Pelvic Floor Department of Colorectal Surgery Risk of morbidity, mortality and/or complications of treatment plan: moderate documented in this encounterOhiohealth O'Blen[facility]02-09-2023 Miscellaneous Notes* Telephone Encounter - Nell Barnett RN - 04/12/2022 11:51 AM EST Pt called in asking question about the two rectal procedures she is having done on 04/16/22. I gave her the two phone numbers it said to call for any information regarding the one procedure. The second procedure it looked like you only needed to make sure you had ID and insurance information. documented in this encounterOhiohealth O'Blen[facility]02-06-2023 Miscellaneous Notes* Telephone Encounter - Ivette Valenzuela - 04/09/2022 10:36 AM EST Pt informed, verbalized understanding Ivette Valenzuela * Telephone Encounter - Edenilson Nicholson DO - 04/09/2022 10:29 AM EST Noted, would have her finish out her pen V K prescription and see if Dr. Nuñez would like her on any additional antibiotic when she is assessed Saturday Edenilson Nicholson DO * Telephone Encounter - Nell Barnett RN - 04/09/2022 10:08 AM EST Pt called in and reports she was into [facility] on Saturday for a mouth infection. She report she was put on penicillin. She states she had her last knee replacement on March 2020 and the other one a couple years before that. She states she can't get into see her dentist Dr Nuñez until Saturday. Pleasecall and advise. documented in this encounterOhiohealth O'Blen[facility]02-04-2023 History of Present illness Narrative* Efra Stinson MD - 04/07/2022 12:57 PM EST Patient presents with: Mouth/Lip Problem: Sore and red bottoms gums x this AM HPI: Gum Lesion: Location: lower front, inside the lip Duration: noticed today Pruritis/Pain: painful Change: Drainage/blister/pustule/ulceration: sore spot Treatment: none PAST MEDICAL HISTORY [...] Take 5,000 Units by mouth once daily. mjywy-3p-aot-epa-fish oil-D3 350 mg-400 mg- 1,000 unit cap [...] kg (118 lb 6.4 oz) SpO2 99% BMI24.75 kg/m PHYSICAL EXAM: GEN: pleasant, no acute [...] abscess. Efra Stinson MD documented in this encounterOhiohealth O'[facility]len[facility] Hospital01-19-2023 Miscellaneous Notes* Telephone Encounter - Yi Jones RN - 03/22/2022 12:40 PM EST Opened in Error documented in this encounterOhiohealth O'Bleness Hospital01-05-2023 History of Present illness Narrative* RT Pavel(R) - 03/08/2022 10:40 AM EST Radiology Service Progress Note PATIENT NAME: Anaya De La O DATE OF SERVICE: March 08, 2022 TIME: 11:30 AM PATIENT IDENTITY VERIFICATION COMPLETED USING TWO (2) IDENTIFIERS: Name and Date of confirmedby patient verbally. FALL SCREENING: Has the patient [...] 08, 2022 11:30 AM documented in this encounterOhiohealth O'Blen[facility] Hospital01-04-2023 Miscellaneous Notes* Telephone Encounter - Cristhian Faulkner RN - 03/07/2022 9:34 AM EST Patient phoned back stating Yi Gonsalves Np, at [facility] is the one who ordered the mag citrate, which is OTC, and on a national back order. Given patient phone number- [phone], which isthe number listed on the GI defecating proctogram procedure scheduled for tomorrow, and advised herto let them know she is unable to get the mag citrate and ask them to advise. Patient agreeable. * Telephone Encounter - Jade Escalante LPN - 03/06/2022 4:59 PM EST Patient calling said she is scheduled for [...] able to reach that office. Patient uses [facility] for her pharmacy if needed. documented in this encounterOhiohealth O'Bleness Hospital01-03-2023 Miscellaneous Notes* Telephone Encounter - Johanna Kilpatrick - 03/06/2022 7:35 AM EST Patient given results and verbalized understanding of instructions given. Johanna Kilpatrick * Telephone Encounter - Laisha Espinoza PA-C - 03/06/2022 7:33 AM EST Please call patient and let her know her COVID and influenza were negative. Follow-up with PCP as needed. documented in this encounterOhiohealth O'Bleness Hospital01-02-2023 History of Present illness Narrative* Laisha Espinoza PA-C - 03/05/2022 1:49 PM EST This note was created using [address]. Subjective Anaya De La O is a 82 year old female. HPI Patient presents with cough over the past 3 days. Denies chest pain or shortness of breath. No wheezing. She is post to have a procedure done in 3 days and wanted to make sure it was okay. Her has URI symptoms as well. No fever. She denies nasal congestion or significant sore throat. No earpain. Patient also has had some urinary frequency [...] Take 5,000 Units by mouth once daily. rrukc-9h-xfj-epa-fish oil-D3 350 mg-400 mg- 1,000 unit cap [...] ABDOMINAL HYSTERECT W/WO RMVL TUBE OVARY 1988 RUIB/BSO for fibroids and bleeding TOTAL KNEE REPLACEMENT [...] 53.1 kg (117 lb) SpO2 100% BMI 24.45kg/m Physical Exam Vitals reviewed. Constitutional: Appearance: Normal [...] is no right CVA tenderness, left CVA tendernessor guarding. Musculoskeletal: Cervical back: Neck supple. Skin: [...] ROUTINE Laisha Espinoza PA-C documented in this encounterOhiohealth O'Blen[facility]12-16-2022 Instructions* Patient Instructions* Lynne Silverman APRN.[facility] - 02/16/2022 8:59 AM EST These are probiotics which are healthy bacteria that is given back to the gastrointestinal (GI) tract. They help to push out the non-healthy bacteria and stimulate a healing immune response in the gut. They do this by 1)secreting proteins that actually inhibit other worrisome bacteria, 2)making food (short- chain fatty acids) for the cells lining the colon, 3)producing B vitamins, 4)producing lactase the enzyme that helps to break down lactose, 5)and up- regulating the production of an antibody (IgA) in the GI tract that helps with the immune system along with other factors (IL10, IL-6, and TNF-alpha). They come as htqk-cd-igpftvn capsules that you take just once a day, every day to help evenout the ups and downs of occasional digestive [...] The bacterial cells are washed and freeze-dried toremove nearly all of the milk protein and casein. However, trace levels--less than 15 parts per million--may remain in each capsule. CULTURELLE is lactose free, but if you are allergic to milk proteins or casein, or are unsure, check with your doctor before taking CULTURELLE . CULTURELLE does not co ntain artificial flavors, dyes, colors, preservatives, yeast, corn, wheat, gluten or lactose. Culturelle is available in the [facility] and/or on-line at www.MagTag.Krush Align capsules containBifantis (Bifidobacterium infantis 65778), a purified, unique probiotic strain that has been clinically proven to improve digestive health. Website for more information for Align is www.psicofxp.Krush or . Alig n is also lactose [...] on where to buy Florajen-3 go to http://coreen longo.[employer].Krush/blanket maker/index.cfm Any of these can be swallowed whole or opened and sprinkled onto applesauce or puddings. Should not be mixed into hot foods or acidy foods. Both are best if kept in the refrigerator. They may be available at various drugstores. documented in this encounterOhiohealth O'Bleness Hospital12-16-2022 History of Present illness Narrative* Lynne Silverman APRN.[facility] - 02/16/2022 8:30 AM EST Anaya De La O is a 81 year old female who [...] Ephedrine, Griseofulvin, Milk Containing Products, Tramadol, Vicodin [Hydrocodone- Acetaminophen], and Zoloft [Sertraline Hcl] MEDICATIONS: Current Outpatient [...] Take 5,000 Units by mouth once daily. btsid-3y-yul-epa-fish oil-D3 350 mg-400 mg- 1,000 unit cap [...] needed. Lynne Silverman APRN.KEVIN documented in this encounterOhiohealth O'Bleness Hospital12-16-2022 Nurse Note* Nicole Garcia Ma - 02/16/2022 8:11 AM EST Post void bladder scan completed. 7 ml residual remaining. Results reported to Lynne Silverman CNP documented in this encounterOhiohealth O'Bleness Hospital12-14-2022 History of Present illness Narrative* Edenilson Nicholson DO - 02/14/2022 10:17 AM EST CC: Anaya De La O is a 81 year old female who presents to the office for follow up HPI: Seen in office 6 weeks ago on 12/05/21, at that time Patient was recently at [facility] 3 days ago for complaints [...] partial rectal prolapse that was easily reduced aswell as an internal hemorrhoid. Her CBC was [...] home that she has learned. Seen in 3 days ago on 01/[address] [...] sitting on a bulge most days. No pain.Is going to be seeing Urology specialist on [...] Take 5,000 Units by mouth once daily. cqxwf-4z-skl-epa-fish oil-D3 350 mg-400 mg- 1,000 unit cap [...] appt with colorectal surgeon for opinion regarding ifany surgical intervention is needed for rectal vault/pelvic 2. Pelvic floor dysfunction in female - ICD9: 618.83, ICD10: M62.89 Follow up with xray testing as ordered and an appt with colorectal surgeon for opinion regarding ifany surgical intervention is needed for rectal vault/pelvic 3. Urinary frequency - ICD9: 788.41, ICD10: R35.0 recurrent Unsure if related to prolapse of bladder or other cause. Edenilson Nicholson, DO Return if no improvement. Follow up with Edenilson Nicholson DO. To ER if develops chest pain, shortness of breath Discussed risks, benefits, alternatives, and potential side effects of medications. Patient/Guardian expressed understanding and agreed with the plan. See patient instructions. Edenilson Nicholson DO [address] [place] [address] documented in this encounterOhiohealth O'Bleness Hospital12-11-2022 Miscellaneous Notes* Telephone Encounter - Johanna Kilpatrick - 02/11/2022 3:53 PM EST Patient given results and verbalized understanding of instructions given. Johanna Kilpatrick * Telephone Encounter - Sherrie Gonzales APRN.CNP - 02/11/2022 2:52 PM EST Please notify that the urine culture showed no infection. May continue taking the antibiotic if symptoms are improving. If symptoms persist/worsen f/u with primary care. documented in this encounterOhiohealth O'Bleness [facility]12-10-2022 Instructions* Patient Instructions* Johnie Aguirre APRN.CNP - 02/10/2022 3:46 PM EST URINARY TRACT [...] Take exactly as directed. Be sure to takeall the medication prescribed, even if your symptoms disappear. If you stop treatment early, the infection may not be fully treated and the symptoms could come back again. 2. Get plenty of rest. You may take acetaminophen for fever and aches. 3. Drink 6 to 8 glasses of fluids, especially water, every day. This helps wash out germs from yoururinary tract. Cranberry juice or other sources of [...] medication or fluids down. documented in this encounterOhiohealth O'Bleness Hospital12-10-2022 History of Present illness Narrative* Johnie Aguirre APRN.CNP - 02/10/2022 3:37 PM EST Subjective HPI A nontoxic appearing female presents to urgent care with chief complaint of possible UTI. Duration of symptoms 1 day. Associated symptoms dysuria, frequency, and urgency. Patient has history of UTIs in past with similar signs and symptoms. Patient denies the use of any xutj-lbe-qwlltsd medications or home remedies for symptom management. [...] Ephedrine, Griseofulvin, Milk Containing Products, Tramadol, Vicodin [Hydrocodone- Acetaminophen], and Zoloft [Sertraline Hcl] MEDICATIONS amitriptyline (ELAVIL) [...] Take 5,000 Units by mouth once daily. zmops-4p-iey-epa-fish oil-D3 350 mg-400 mg- 1,000 unit cap [...] is no right CVA tenderness, left CVA tendernessor rebound. Musculoskeletal: Cervical back: Normal range of [...] clinical presentation is otherwise unremarkable at this time.Based on exam and clinical finding, the patient is stable for discharge. Plan of care was discussedwith patient. Patient verbalizes understanding and agrees to plan of care. This note was generated u Viamedia software. It may contain errors in wording, punctuation, or spelling. Johnie Aguirre APRN.KEVIN documented in this encounterOhiohealth O'Blen[facility]12-09-2022 History of Present illness Narrative* Laisha Sullivan, PT - 02/09/2022 8:31 AM EST Episode Visit Count: 6 Therapist That Will Accept/Oversee The Plan Of Care: Laisha Sullivan Start of Care Date: 12/29/21 Onset Date: 12/29/16 Plan of Care Certification Date: 12/29/21 Next Certification Due Date: 02/27/22 Patient Identified by Name and Date of : Yes REHABILITATION AND SPORTS THERAPY PHYSICAL THERAPY TREATMENT NOTE ASSESSMENT: Anaya Morrow Dineshady tolerated the session with no issues. She [...] getting out of the car make her feellike she has to urinate more. Pt reports having to hold herself with a wash cloth to try to hold inurine but reports this is so normal to [...] program to facilitate proper performance and compliance. Self-Penitentiary Management: 1: Thoroughly discussed PT role for POP, possibility that exercises might not be the only plan of action for POP, importance of discussing with referring provider about other options if no progress made with millwright supervisor Intervention: Skilled judgment in the selection of proper modification for activity of daily living/home management based on clinical presentation, deficits, and needs. Billing Therapeutic Exercise Treatment Minutes: 28 Self-Care/Home Management Treatment Minutes: 15 Total Treatment Time Minutes (timed/untimed): 43 Laisha Sullivan PT documented in this encounterOhiohealth O'Bleness [facility]11-23-2022 Miscellaneous Notes* Telephone Encounter - Key Kidd LPN - 01/24/2022 5:16 PM EST Patient aware of Antibiotic being prescribed , verbalizes understanding. Key iKdd LPN * Telephone Encounter - Edenilson Nicholson DO - 01/24/2022 5:12 PM EST Please call patient and have her start on antibiotic as below Edenilson Nicholson DO The following approved medication requests have been transmitted electronically. Requested Prescriptions Signed Prescriptions Disp Refills cephALEXin (KEFLEX) 500 mg capsule 28 capsule 0 Sig: Take 1 capsule by mouth four times daily for 7 days. Authorizing Provider: EDENILSON NICHOLSON DO * Telephone Encounter - Elizabeth Perez RN - 01/24/2022 4:46 PM EST Patient calling for urine culture results. Done 01/22/22. She is having urinary symptoms. Results copied from [facility]: 10,000 -<50,000 CFU/ml Streptococcus anginosus Abnormal No susceptibility testing done. Elizabeth Perez RN * Telephone Encounter - Shabana Moreno LPN - 01/24/2022 1:34 PM EST Pt seen 01/22/22 & urine was sent to the lab. Pt reports she is urination more frequently than she was during appt. Urine culture pending, pt aware, Shabana Moreno LPN documented in this encounterOhiohealth O'Blen[facility]11-22-2022 History of Present illness Narrative* Laisha Sullivan, PT - 01/23/2022 12:07 PM EST Episode Visit Count: 5 Therapist That Will Accept/Oversee The Plan Of Care: Laisha Sullivan Start of Care Date: 12/29/21 Onset Date: 12/29/16 Plan of Care Certification Date: 12/29/21 Next Certification Due Date: 02/27/22 Patient Identified by Name and Date of : Yes REHABILITATION AND SPORTS THERAPY PHYSICAL THERAPY PROGRESS REPORT PLAN OF CARE UPDATE: Assessment: Anaya De La O demonstrates improvements in stress urinary incontinence, pelvic [...] Patient to be seen for Therapeutic exercise (64789);Manual therapy (61234);Self- assisted management (58590);Patient/Family/Caregiver Education PLAN FOR NEXT VISIT: progress exercises [...] this her whole life and does not mindit. Pt reports not noticing any POP symptoms. [...] appointment. Laisha Sullivan PT documented in this encounterOhiohealth O'Bleness [facility]11-21-2022 History of Present illness Narrative* Edenilson Nicholson, - 01/22/2022 5:26 PM EST CC: Anaya De La O is a 81 year old female who presents to the office for follow up HPI: Seen in office 6 weeks ago on 12/05/21, at that time Patient was recently at [facility] 3 days ago for complaints [...] partial rectal prolapse that was easily reduced aswell as an internal hemorrhoid. Her CBC was [...] Take 5,000 Units by mouth once daily. hkzhg-2q-xeo-epa-fish oil-D3 350 mg-400 mg- 1,000 unit cap [...] nares without drainage, pharynx without erythema, exudate, lesions,or drainage. Uvula midline. Neck: No LAD, no [...] See patient instructions. Edenilson Nicholson DO [address] [place] [address] documented in this encounterOhiohealth O'Blen[facility]11-21-2022 Instructions* Patient Instructions* Edenilson Nicholson DO - 01/22/2022 2:27 PM EST Moist heating pad - rice pack tube sock for 2 min in microwave then stretch neck muscles including the turkey gobbler double chin exercise documented in this encounterOhiohealth O'Bleness [facility]11-18-2022 Miscellaneous Notes* Telephone Encounter - Cherrie Harkins RN - 01/19/2022 2:56 PM EST Patient contacted and states she does not recall having a headache like this one before; states it's unusual. ER advised per provider's recommendation and pt verbalized understanding. Cherrie Harkins RN * Telephone Encounter - Angeline Ray APRN.IS ARCHITECT - 01/19/2022 2:31 PM EST Has she ever had a headache like this before? If not, I would recommend she not wait the entire weekend to be seen and be seen in the ED. Angeline Ray APRN.KEVIN * Telephone Encounter - Cherrie Harkins RN - 01/19/2022 2:03 PM EST Triage Protocol Recommends pt to be evaluated [...] last night and continues now. Mild discomfort whenturning her head side to side. Has not taken any OTC medication. Took a mobic pill about 50 minutesago and has not lessened her discomfort. Denies [...] sore throat, or cold symptoms Protocols used: Dynermci-JBAMZ-YT documented in this encounterOhiohealth O'Blen[facility]11-15-2022 History of Present illness Narrative* Laisha Sullivan, PT - 01/16/2022 11:23 AM EST Episode Visit Count: 4 Therapist That Will Accept/Oversee The Plan Of Care: Laisha Sullivan Start of Care Date: 12/29/21 Onset Date: 10/28/17 Plan of Care Certification Date: 12/29/21 Next Certification Due Date: 02/27/22 Patient Identified by Name and Date of : Yes REHABILITATION AND SPORTS THERAPY PHYSICAL THERAPY TREATMENT NOTE ASSESSMENT: Anaya De La O tolerated the session with no issues and [...] appointment. Laisha Sullivan PT documented in this encounterOhiohealth O'Blen[facility]11-13-2022 Miscellaneous Notes* Telephone Encounter - Noemi Steinberg MA - 01/14/2022 12:16 PM EST Patient notified of results, verbalized understanding of instructions given. Noemi Steinberg MA * Telephone Encounter - Johnie Aguirre APRN.CNP - 01/14/2022 8:17 AM EST No bacterial growth noted on urine culture. Symptoms persist follow-up with PCP. Johnie gAuirre APRN.KEVIN documented in this encounterOhiohealth O'Bleness [facility]11-11-2022 History of Present illness Narrative* Bambi Alex APRN.KEVIN - 01/12/2022 2:23 PM EST CC: Patient presents with: Urinary Problem: Pt reported frequency, burning with urination, onset AM. HPI Anaya De La O is a 81 year old female who [...] Ephedrine, Griseofulvin, Milk Containing Products, Tramadol, Vicodin [Hydrocodone- Acetaminophen], and Zoloft [Sertraline Hcl] MEDICATIONS famotidine (PEPCID) [...] Take 5,000 Units by mouth once daily. cgqsz-3y-wpw-epa-fish oil-D3 350 mg-400 mg- 1,000 unit cap [...] symptoms occur. Patient agreeable to treatment plan. Bambi Alex APRN.KEVIN documented in this encounterOhiohealth O'Blen[facility]11-11-2022 Miscellaneous Notes* Telephone Encounter - Armida Warren RN - 01/12/2022 12:42 PM EST Patient calls for urinary frequency. Nurse triage completed. See provider within 24 hours. Patient going to go to EC for evaluation. Care advice reviewed. Patient verbalizes understanding. Reason for Disposition Urinating more frequently than usual (i.e., frequency) Answer Assessment - Initial Assessment Questions 1. SYMPTOM: Urinary Frequency 2. ONSET:A few hours a go. 3. PAIN: No 4. CAUSE: Patient thinks a urinary tract infection. 5. OTHER SYMPTOMS: No flank pain, blood in urine, or pain with urination. Afebrile. Protocols used: Urinary Bzkydhyh-DDPVM-AX documented in this encounterOhiohealth O'Bleness [facility]10-26-2022 Miscellaneous Notes* Telephone Encounter - Edenilson Nicholson DO - 12/27/2021 9:09 PM EDT Agree with below Edenilson Nicholson DO * Telephone Encounter - Agatha Hall LPN - 12/23/2021 11:39 AM EDT Patient called with complaints of nose bleed this am. States had not had one in several years. Was out raking leaves prior to bleed. It did stop. She does have high blood pressure but had not checked blood pressure prior to calling. Denies any headaches. Did encourage patient to keep eye on blood pressure and if elevated to call back. Explained that ifbleeding starts back up again and will not stop to go to ER. Encourage normal saline nasal spray to keep nares moist. documented in this encounterOhiohealth O'Bleness [facility]10-21-2022 History of Present illness Narrative* Michael Del Castillo PA-C - 12/22/2021 12:53 PM EDT Images from the original note were not included. DEPARTMENT OF ORTHOPAEDICS CC: Follow-up visit after knee replacement HPI: Ms. De La O is here today for her 2 year clinical follow up status post left total knee replacement and 4 year follow up right total knee. Since her last visit Ms. De La O conveys the interval has been complicated by [...] Take 5,000 Units by mouth once daily. yohds-1x-fxv-epa-fish oil-D3 350 mg-400 mg- 1,000 unit cap [...] extremity swelling, varices, edema, pallor, erythema Ms. De La O has no difficulty arising out of a [...] Straight leg raise and femoral nerve stretch testswere negative for acute radicular symptoms to suggest [...] Michael Del Castillo PA-C documented in this encounterOhiohealth O'Bleness [facility]10-21-2022 Miscellaneous Notes* [facility] - RT Jolynn(R) - 12/22/2021 12:40 PM EDT Radiology Service Progress Note PATIENT NAME: Anaya De La O DATE OF SERVICE: December 22, 2021 TIME: 12:34 PM PATIENT IDENTITY VERIFICATION COMPLETED USING TWO (2) IDENTIFIERS: Name and Date of confirmedby patient verbally. FALL SCREENING: Has the patient had 2 falls in the last year or 1 fall with injury or currently using an Ambulatory Assistive Device (Walker, Cane, Wheelchair, Crutches, etc.)? No PATIENT GENDER DATA: Female. status: : No status: NO. PATIENT RELEVANT IMPLANT DATA REVIEWED: Not Applicable RADIOLOGY DEPARTMENT: General X-ray: Exam(s) Completed: Lower Extremity X- Ray(s): Knee, AP / Lat / Merchant Bilateral PERIPHERAL IV DATA: Not applicable SIGNED BY: RT Jolynn(R) December 22, 2021 12:34 PM documented in this encounterOhiohealth O'Blen[facility]10-05-2022 Miscellaneous Notes* Addendum Note - Yi Gonsalves APRN.CNP - 12/06/2021 1:30 PM EDTAddended by: YI GONSALVES on: 12/06/2021 01:30 PM Modules accepted: Orders documented in this encounterOhiohealth O'Bleness Hospital10-05-2022 History of Present illness Narrative* Juan Lagos MD - 12/06/2021 12:50 PM EDT HISTORY AND PHYSICAL Anaya De La O 1940 REFERRING PHYSICIAN: Neal Rose* CHIEF COMPLAINT: Consult ([facility] follow up) HPI: The patient is a 81 year old female with a complaint of rectal prolapse and incidental findingof rectocele versus enterocele and recurring urinary tract [...] was sticking out. She then presented to [facility] emergency department on December 02, 2021. She was seen in the emergency department by Dr. Rose who felt she had a rectal prolapse. [...] Take 5,000 Units by mouth once daily. zfhlk-4r-onj-epa-fish oil-D3 350 mg-400 mg- 1,000 unit cap [...] Ephedrine, Griseofulvin, Milk Containing Products, Tramadol, Vicodin [Hydrocodone- Acetaminophen], and Zoloft [Sertraline Hcl] PERSONAL HISTORY: Social [...] nourished, well hydrated in no acute distress. Thepatient is oriented to time, place, and person. VITALS: Blood pressure 137/69, pulse 63, temperature 36.4 C (97.5 F), height 147.3 cm (4' 10), weight 52.7 kg (116 lb 3.2 oz), SpO2 100 %. HEENT: Normal cephalic, ataumatic, pupils are equally round, sclera are anicteric, mucous membranesare moist, oropharynx is clear. Neck has no masses, asymmetry or lymphadenopathy. Thyroid is unremarkable. Respiratory: Clear to auscultation and percussion. Normal respiratory excursion and pattern. Cardiac: Examination is regular rate and rhythm. Abdominal exam: Soft, nontender, with no palpable masses. No hepatosplenomegaly. No palpable hernias. Rectal exam: Mixed slightly prolapsing hemorrhoids without obvious rectal prolapse currently. Thereis a visible third-degree prolapsing out the posterior [...] [facility] and consideration of treatment [...] needed. Juan Lagos MD documented in this encounterOhiohealth O'Blen[facility]10-04-2022 History of Present illness Narrative* Edenilson Nicholson DO - 12/05/2021 2:39 PM EDT CC: Anaya De La O is a 81 year old female who presents to the office for EMERGENCY DEPARTMENT follow up HPI: Patient was recently at [facility] 3 days ago for complaints [...] partial rectal prolapse that was easily reduced aswell as an internal hemorrhoid. Her CBC was [...] Take 5,000 Units by mouth once daily. zjsdu-9x-ofk-epa-fish oil-D3 350 mg-400 mg- 1,000 unit cap [...] nares without drainage, pharynx without erythema, exudate, lesions,or drainage. Uvula midline. Neck: No LAD, no [...] See patient instructions. Edenilson Nicholson DO [address] [place] [address] documented in this encounterOhiohealth O'Blen[facility]10-01-2022 Miscellaneous Notes* Telephone Encounter - Samantha Marin RN - 12/02/2021 9:40 PM EDT Reason for call: Protrusion from rectum Anaya reports drinking some cider this evening which has lead to loose frequent stools. With in the last hour and without a stool, Anaya developed a large protrusion from the rectum. With the protrusion Brian noted some pink blood that turned bright red. Tomigarth thought maybe it was a hemorrhoid and tried pushing the bulge back in without success. Anaya denies having a history of hemorrhoids protrude as such. Outcome: ED now recommendation, Anaya verbalized her understanding and will seek evaluation at the [facility] ED Reason for Disposition Large mass protruding out of rectum Protocols used: Rectal Rngrqhlh-XIWZT-FD documented in this encounterOhiohealth O'Bleness Hospital09-19-2022 Miscellaneous Notes* Telephone Encounter - Armida Warren RN - 11/20/2021 10:08 AM EDT Patient calls to report redness to top [...] : NA Protocols used: Leg Swelling and Gcgye-DZBMN-AF, Rash or Redness - Eoianfhga-GHREU-QD documented in this encounterOhiohealth O'Bleness Hospital08-31-2022 Miscellaneous Notes* Telephone Encounter - Madeline Horn Cma - 11/01/2021 1:31 PM EDT Patient notified and verbalized understanding Madeline Horn Cma * Telephone Encounter - Kandi Contreras APRN.CNP - 11/01/2021 12:34 PM EDT The following approved medication requests have been transmitted electronically. Requested Prescriptions Signed Prescriptions Disp Refills famotidine (PEPCID) 40 mg tablet 180 tablet 1 Sig: Take 1 tablet by mouth twice daily. Authorizing Provider: KANDI CONTRERAS APRN.CNP * Telephone Encounter - Elen Joy - 10/31/2021 1:25 PM EDT Patient called to refill famotidine; not on current med list. Uses [facility] in [place]. documented in this encounterOhiohealth O'Bleness Hospital08-31-2022 Miscellaneous Notes* Telephone Encounter - Yi Jones RN - 11/01/2021 10:21 AM EDT Patient notified of results. atient verbalizes understanding. Yi Jones RN * Telephone Encounter - Angeline Ray APRN.CNP - 11/01/2021 10:18 AM EDT Please let Anaya know that her COVID test and stool tests have all come back negative. Angeline Ray APRN.CNP documented in this encounterOhiohealth O'Bleness Hospital08-29-2022 Miscellaneous Notes* Telephone Encounter - Madeline Horn Cma - 10/30/2021 9:46 AM EDT Patient notified and verbalized understanding Madeline Horn Cma * Telephone Encounter - Angeline Ray APRN.CNP - 10/28/2021 9:19 PM EDT Please let Lytle know that her test is negative for COVID. Angeline Ray APRN.CNP documented in this encounterOhiohealth O'Bleness Hospital08-28-2022 Miscellaneous Notes* Telephone Encounter - Kinga Parker LPN - 10/29/2021 2:32 PM EDT Patient calling with return call/Message from office: Patient called back and given message from office note dated 10/28/21. Pt verbalized understanding of message given. . Patient denies any new or worsening symptoms of which a provider is not aware:Yes Please let Anaya know that her test is negative for COVID. MIHIR Hancock LPN documented in this encounterOhiohealth O'Bleness Hospital08-26-2022 History of Present illness Narrative* Angeline Ray, ENGINE HEAD REPAIRER.IS ARCHITECT - 10/27/2021 1:38 PM EDT Chief Complaint Patient presents with: Diarrhea: Since 10/26 Headache HPI Anaya De La O is a 81 year old female who [...] Take 5,000 Units by mouth once daily. dyvpe-2o-cjx-epa-fish oil-D3 350 mg-400 mg- 1,000 unit cap [...] episodes. - COVID WITH FLUA+B, ROUTINE Angeline Ray APRN.CNP documented in this encounterOhiohealth O'[facility]len[facility]08-26-2022 Miscellaneous Notes* Telephone Encounter - Angeline Ray APRN.CNP - 10/27/2021 11:19 AM EDT Noted, thank you. Angeline Ray APRN.CNP * Telephone Encounter - Nell Barnett RN - 10/27/2021 10:37 AM EDT Protocol recommends see provider in 24 hours. Pt scheduled today at 100 pm with Angeline Ray LIFTER. Care plan reviewed with patient. Patient voices [...] in stool. 12. : Postmenopausal Protocols used: Glwrruwl-ZOAAN-GX documented in this encounterOhiohealth O'Bleness [facility]08-19-2022 Miscellaneous Notes* Telephone Encounter - Yi Jones RN - 10/20/2021 8:18 AM EDT Last Office Visit: 10/06/2021 Future Office Visit: 01/22/2022 Last Medication Refill: loratadine 11/10/2020 30 tab 11 refill Date of Last Labs: 08/01/2021 documented in this encounterOhiohealth O'Blen[facility]08-11-2022 Miscellaneous Notes* Telephone Encounter - Cristhian Faulkner RN - 10/12/2021 8:09 AM EDT Patient reports she has appt with dentist [...] you. Cristhian Faulkner RN documented in this encounterOhiohealth O'Bleness [facility]07-18-2022 History of Present illness Narrative* Michael Del Castillo PA-C - 09/18/2021 2:18 PM EDT Images from the original note were not included. Ortho Knee Follow Up Note Narrative Referring Provider: Michael Del Castillo [address] [facility] [address] PCP: Edenilson Nicholson, DO IMPRESSION/PLAN: 81 year old s/p Left Total Knee Replacement completed on 03/28/2020 and right total knee completed on 06/03/17. Orthopaedic Surgeries 03/28/2020 (1yr, 5mo) ROBOTIC ASSISTED TOTAL KNEE ARTHROPLASTY; CPTR-ASST DIR MS PX (Left; Left) Ino Purdy MD; Fermín Cartwright MD - Posted 06/03/2017 (4yr) ARTHROPLASTY REPLACE JOINT TOTAL KNEE (Right) Ino Purdy MD; Lani (Hist) Yvette - Posted PAIN EVALUATION 09/18/2021 1406 Pain Level: 4 Pain Location: bilat knee Description: Tightness;Aching Duration Amount of Time: ongoing Frequency: Intermittent Intervention/Comfort measure: Relaxation;Reposition IMPRESSION: Slow post-operative recovery. PLAN: Continue current conservative treatment. Encouraged to be more consistent with home exercise program Patient Reassurance: Patient reassured and supported. All questions answered. 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 progress strengthening. re-eval if pt canrecall activities that bother her, - EXAM: POST [...] Michael Del Castillo PA-C documented in this encounterOhiohealth O'Bleness Hospital07-12-2022 Instructions* Patient Instructions* Charissa Jauregui APRN.[facility] - 09/12/2021 11:41 AM EDT 1. Start the augmentin twice daily X 1 week. 2. Hold the methotrexate while on the augmentin. 3. Keep wound clean and dry. Apply antibiotic ointment. 4. Watch the cat. documented in this encounterOhiohealth O'Bleness Hospital07-12-2022 History of Present illness Narrative* Charissa Jauregui APRN.CNP - 09/12/2021 11:35 AM EDT This is a 81 year old female who presents today with: Patient presents with: Acute Visit: cat scratch on L hand x 1 day HISTORY OF PRESENT ILLNESS: Anaya De La O is a 81 year old female. Patient [...] Ephedrine, Griseofulvin, Milk Containing Products, Tramadol, Vicodin [Hydrocodone- Acetaminophen], and Zoloft [Sertraline Hcl] MEDICATIONS Current Outpatient [...] Take 5,000 Units by mouth once daily. lqzmx-3w-rix-epa-fish oil-D3 (VITAMIN-D + OMEGA-3) 350 mg- 1,000 [...] needed for worsening/no improvement. Charissa Jauregui APRN.KEVIN documented in this encounterOhiohealth O'Blen[facility]06-02-2022 Miscellaneous Notes* Telephone Encounter - Keisha Cazares RN - 08/03/2021 2:33 PM EDT Left pt detailed VM (ok per Epic) with results below. Asked patient to contact office if she wanteda boot. * Telephone Encounter - Keisha Cazares RN - 08/03/2021 2:31 PM EDT Left patient detailed VM with message below. Told * Telephone Encounter - Keisha Cazares RN - 08/03/2021 2:30 PM EDT ----- Message from Margaret Crane sent at 08/02/2021 11:39 PM EDT ----- Please call patient to inform her that her xrays show no change from her prior xrays . If she has no pain, I would wear shoes and inserts. If she has pain, I would consider boot Margaret Crane DPM documented in this encounterOhiohealth O'Bleness [facility]06-01-2022 History of Present illness Narrative* RT Boy(R) - 08/02/2021 10:00 AM EDT Radiology Service Progress Note PATIENT NAME: Anaya De La O DATE OF SERVICE: August 02, 2021 TIME: 10:01 AM PATIENT IDENTITY VERIFICATION COMPLETED USING TWO (2) IDENTIFIERS: Name and Date of confirmedby patient verbally. FALL SCREENING: Has the patient had 2 falls in the last year or 1 fall with injury or currently using an Ambulatory Assistive Device (Walker, Cane, Wheelchair, Crutches, etc.)? No PATIENT GENDER DATA: Female. status: : No status: NO. PATIENT RELEVANT IMPLANT DATA REVIEWED: Not Applicable RADIOLOGY DEPARTMENT: General X-ray: Exam(s) Completed: Lower Extremity X- Ray(s): Foot, Left and Wt. Bearing PERIPHERAL IV DATA: Not applicable SIGNED BY: RT Boy(R) August 02, 2021 10:01 AM documented in this encounterOhiohealth O'Bleness Hospital06-01-2022 History of Present illness Narrative* Keisha Cazares RN - 08/02/2021 9:[address] Crane, Anaya was provided with a pair of full length gel Comfort Last Power step inserts, size 7 - 8 1/2, and instructed/educated in its application, wear, and care. All questions were answered, and patient was able to demonstrate competence with the necessary skills to utilize the above equipment. Keisha Cazares RN * Margaret Crane - 08/02/2021 9:36 AM EDT Consultation requested by Dr. davis for an opinion regarding pain and redness of left foot. My final recommendations will be communicated back to the requesting physician by way of shared Medical record or letter to requesting physician via US mail. Initial Podiatric Office Visit: Chief Complaint: This 81 year old female who presents with chief complaint:pain and redness of leftfoot HPI Patient presents to clinic for evaluation of left foot. Patient states that last week, she noticed pain and redness of left foot. She saw Angeline ray who referred patient here . Patient states [...] Take 5,000 Units by mouth once daily. tdytk-6n-fii-epa-fish oil-D3 (VITAMIN-D + OMEGA-3) 350 mg- 1,000 [...] thickening and periosteal reaction of left 2nd metatarsalshaft seen on ap view of july 20 xray ASSESSMENT: (X50.3XXA) Repetitive stress injury (primary encounter diagnosis) (M79.672) Foot pain, left (L53.9) Erythema of foot PLAN: 1. History and physical examination performed. 2. XR reviewed with patient and interpreted today 3. There is periosteal thickening of left 2nd metatarsal. Cannot exclude stress fracture. Recommendfollow-up xrays to confirm possible stress fracture 4. Patient has no pain currently . Recommend firm sole sneaker and will use powerstep insert 5. Will repeat xrays Margaret Crane DPM Podiatry [address] [facility] [address] Dept: [phone] Dept documented in this encounterOhiohealth O'Blen[facility]06-01-2022 Instructions* Patient Instructions* Margaret Crane - 08/02/2021 9:42 AM EDT Powerstep Original Full length. Can purchase at [employer] here in [place], [employer] in [place] or [place]. Also can find in [employer] in [facility]. Powersteps can also be purchased online, [...] everything fits well together documented in this encounterOhiohealth O'Blen[facility]05-20-2022 Miscellaneous Notes* Telephone Encounter - Sharon Garibay - 07/21/2021 2:04 PM EDT Done. Thank you, Sharon Garibay * Telephone Encounter - Kandi Contreras APRN.CNP - 07/21/2021 1:00 PM EDT Podiatry consults signed. Please assist in scheduling. Thank you, Kandi Contreras APRN.CNP * Telephone Encounter - Yi Jones RN - 07/21/2021 11:02 AM EDT Patient calls back and notified of provider response. Patient states that she is willing to see podiatry. Please place order. Please review and advise, Yi Jones RN * Telephone Encounter - Ivette Lopez Ma - 07/21/2021 9:39 AM EDT Patients spouse notified, verbalized understanding and will relay message to pt. Patient will call office if interested in Podiatry. Ivette Lopez Ma * Telephone Encounter - Angeline Ray APRN.CNP - 07/20/2021 4:45 PM EDT Please let Anaya know that her xray does not show any fractures. However, I think she may benefitfrom seeing a real estate firm manager to help with the area that is sore and try to prevent it from rubbing and hurting. Please let me know if she is agreeable to this consult. Angeline Ray APRN.CNP documented in this encounterOhiohealth O'Blen[facility]05-19-2022 Instructions* Patient Instructions* Angeline Ray APRN.CNP - 07/20/2021 12:31 PM EDT Have your foot xray completed. You can use the valacyclovir medication when you feel a cold sore coming on. Start taking your Claritin daily. This should help with your throat and your ear. Try to limit carbohydrates somewhat. documented in this encounterOhiohealth O'Blen[facility]05-19-2022 History of Present illness Narrative* Angeline Ray APRN.CNP - 07/20/2021 12:23 PM EDT Chief Complaint Patient presents with: Ear Problem: left ear Foot Pain (Midfoot): top of left foot Mouth/Lip Problem Throat Problem Urinary Frequency HPI Anaya De La O is a 81 year old female who [...] Take 5,000 Units by mouth once daily. wbohc-4p-dgb-epa-fish oil-D3 (VITAMIN-D + OMEGA-3) 350 mg- 1,000 [...] - ICD9: 784.2, ICD10: R22.0 Benign. Angeline Ray APRN.IS ARCHITECT Greater than 50% of 46-minute visit spent face to face with patient in counseling and education. documented in this encounterOhiohealth O'Blen[facility]05-18-2022 Miscellaneous Notes* Telephone Encounter - Sharon Pack Pss - 07/19/2021 1:15 PM EDT Patient has been identified by name and date of : Yes Pending Prescriptions Disp Refills METHOTREXATE SODIUM 2.5 MG TABLET 56 tablet 0 Sig: Take 6 tablets once weekly,on ANTON: No RX INSTRUCTIONS: Patient aware RX will be sent to pharmacy. No need to notify patient. Sharon Pack Pss documented in this encounterOhiohealth O'Blen[facility]05-16-2022 History of Present illness Narrative* Michael Del Castillo PA-C - 07/17/2021 4:20 PM EDT Images from the original note were not included. Ortho Knee Follow Up Note Narrative Referring Provider: Michael Del Castillo [address] [facility] [address] PCP: Edenilson Nicholson, DO IMPRESSION/PLAN: 81 year old s/p Bilateral Total Knee Replacements, left completed on 03/28/2020 and the right completed on 06/03/17. Orthopaedic Surgeries 03/28/2020 (1yr, 3mo) ROBOTIC ASSISTED TOTAL KNEE ARTHROPLASTY; CPTR-ASST DIR MS PX (Left; Left) Ino Purdy MD; Fermín Cartwright MD - Posted 06/03/2017 (4yr) ARTHROPLASTY REPLACE JOINT TOTAL KNEE (Right) Ino Purdy MD; Lani (Hist) Yvette - Posted PAIN EVALUATION 07/17/2021 1254 [...] Follow up 1 year X-Rays Needed Anaya De La O presents today for a a fci follow-up visit. She also complains that ADLs [...] - Planned treatment interventions - Therapeutic exercise (38259);Neuromuscular re- education (32275);Manual therapy (81673);Therapeutic activities (87513);Self- assisted management (25615);Patient/Family/Caregiver Education;Body Mechanics Training - Plan for next visit - July tyr manual to improve knee rom. progress strengthening. re-eval if pt canrecall activities that bother her, - EXAM: POST [...] Michael Del Castillo PA-C documented in this encounterOhiohealth O'Bleness [facility]05-16-2022 History of Present illness Narrative* Kaylee Mcguire, CT - 07/17/2021 12:30 PM EDT Radiology Service Progress Note PATIENT NAME: Anaya De La O DATE OF SERVICE: July 17, 2021 TIME: 12:48 PM PATIENT IDENTITY VERIFICATION COMPLETED USING TWO (2) IDENTIFIERS: Name and Date of confirmedby patient verbally. FALL SCREENING: Has the patient had 2 falls in the last year or 1 fall with injury or currently using an Ambulatory Assistive Device (Walker, Cane, Wheelchair, Crutches, etc.)? No PATIENT GENDER DATA: Female. status: : No status: NO. PATIENT RELEVANT IMPLANT DATA REVIEWED: Not Applicable RADIOLOGY DEPARTMENT: General X-ray: Exam(s) Completed: Lower Extremity X- Ray(s): Knee, AP / Lat / Merchant Bilateral and Wt. Bearing PERIPHERAL IV DATA: Not applicable SIGNED BY: GLO Marroquin July 17, 2021 12:48 PM documented in this encounterOhiohealth O'Blen[facility]04-28-2022 Miscellaneous Notes* Telephone Encounter - Yana Serrato LPN - 06/29/2021 1:49 PM EDT Pt was notified of such. * Telephone Encounter - Kandi Contreras APRN.CNP - 06/29/2021 9:51 AM EDT Thank you for clarifying. Rx sent. The following approved medication requests have been transmitted electronically. Signed Prescriptions Disp Refills amoxicillin (POLYMOX, AMOXIL) 500 mg capsule 4 capsule 1 Sig: Take 4 capsules by mouth one time only for 1 dose. Take 1 hour prior to appointment ANTON: No Authorizing Provider: KANDI CONTRERAS APRN.CNP * Telephone Encounter - Yana Serrato LPN - 06/29/2021 8:21 AM EDT Spoke with pt she states just to keep on hand for prior to going to dentist. She has two replaced knees she states she usually only gets 4 of them for before dental treatments. * Telephone Encounter - Kandi Contreras APRN.CNP - 06/28/2021 8:05 PM EDT Please clarify why patient is asking for a refill of this antibiotic? Antibiotics are not a medication that should be refilled, patient should not be on this more than ashort-term duration. Kandi Contreras APRN.KEVIN * Telephone Encounter - Elizabeth Perez RN - 06/28/2021 4:36 PM EDT Patient has been identified by name and [...] you. Elizabeth Perez RN documented in this encounterOhiohealth O'Blen[facility]04-27-2022 History of Present illness Narrative* Edenilson Nicholson DO - 06/28/2021 6:50 AM EDT CC: Anaya De La O is a 81 year old female who presents to the office for follow up HPI: Seen in office on 05/24/21, at that time Overall has been feeling well. Just recently is trying to restart walking routine as the weather gets nice. She walked up and down their lucho 4-5 times last evening. Asymptomatic, no CP or dyspnea ordizziness/LH or edema Arthritis inflammatory, taking methotrexate, seeing [employer] Chronic neck pain, muscle tension. Starting PHYSICAL THERAPY at [facility], 1st session was thisweek. She had BLOOD PRESSURE taken there this [...] she has been doing PHYSICAL THERAPY at [facility] for this and feels it is helping her mobility and symptoms. She admits that she needs to do the stretchesmore regularly at home as well. PAST MEDICAL [...] Take 5,000 Units by mouth once daily. tvsyv-0a-vcf-epa-fish oil-D3 (VITAMIN-D + OMEGA-3) 350 mg- 1,000 [...] nares without drainage, pharynx without erythema, exudate, lesions,or drainage. Uvula midline. Neck: No LAD, no [...] with home exercises, use of TENS unit, stretches,heating pad and massage therapy 2. Hypertension, essential [...] ICD9: 714.9, ICD10: M19.90 - f/u with [employer] 6. Rib injury - ICD9: 959.11, ICD10: S29.9XXA - improved symptoms, continue heat and stretches prn 7. Osteoarthritis of spine with radiculopathy, cervical region - ICD9: 721.0, ICD10: M47.22 - overall symptoms are improving/stable, continue with home exercises, use of TENS unit, stretches,heating pad and massage therapy 8. DDD (degenerative disc disease), cervical - ICD9: 722.4, ICD10: M50.30 - overall symptoms are improving/stable, continue with home exercises, use of TENS unit, stretches,heating pad and massage therapy Edenilson Nicholson DO Return if no improvement. Follow up with Edenilson Nicholson DO. To ER if develops chest pain, shortness of breath,. Discussed risks, benefits, alternatives, and potential side effects of medications. Patient/Guardian expressed understanding and agreed with the plan. See patient instructions. Edenilson Nicholson DO [address] [place] [address] documented in this encounterOhiohealth O'Bleness Hospital04-12-2022 Miscellaneous Notes* Telephone Encounter - Yi Jones RN - 06/13/2021 1:04 PM EDT Patient notified of results and provider's instructions. Patient verbalizes understanding. Yi Jones RN * Telephone Encounter - Charissa Jauregui APRN.IS ARCHITECT - 06/12/2021 7:14 PM EDT Can please let patient know that her urine culture did not show an infection. I would like to have her return in a couple of weeks to repeat the urine to ensure the microscopic hematuria (hidden blood) in her urine has resolved. The orders are in. Charissa Jauregui APRN.CNP documented in this encounterOhiohealth O'Blen[facility]04-08-2022 History of Present illness Narrative* Melania Hoyos RT(R) - 06/09/2021 3:00 PM EDT Radiology Service Progress Note PATIENT NAME: Anaya De La O DATE OF SERVICE: June 09, 2021 TIME: 2:56 PM PATIENT IDENTITY VERIFICATION COMPLETED USING TWO (2) IDENTIFIERS: Name and Date of confirmedby patient verbally. FALL SCREENING: Has the patient [...] 09, 2021 2:56 PM documented in this encounterOhiohealth O'Bleness Hospital04-08-2022 Instructions* Patient Instructions* Charissa Jauregui APRN.CNP - 06/09/2021 2:41 PM EDT 1. Start the prednisone. 2. Ice to the area. 3. Get the xrays. 4. Let us know if no better/worsening. documented in this encounterOhiohealth O'Bleness Hospital04-08-2022 History of Present illness Narrative* Charissa Jauregui APRN.CNP - 06/09/2021 2:22 PM EDT This is a 81 year old female who presents today with: Patient presents with: Back Pain: Started on Saturday evening states was pulling on exercise bands that were not attached very well to door knob and lost balance when bands gave away and she fell backwards landing on right side. Pain on left side of lower back. HISTORY OF PRESENT ILLNESS: Anaya De La O is a 81 year old female. Patient [...] the band wasn't attached to the door welland let loose. She twisted and fell backwards [...] Ephedrine, Griseofulvin, Milk Containing Products, Tramadol, Vicodin [Hydrocodone- Acetaminophen], and Zoloft [Sertraline Hcl] MEDICATIONS Current Outpatient [...] Take 5,000 Units by mouth once daily. yvzyq-5s-aqp-epa-fish oil-D3 (VITAMIN-D + OMEGA-3) 350 mg- 1,000 [...] as needed for worsening/no improvement. Charissa Jauregui APRN.CNP This note was partially generated using [employer] voice recognition system. Note was reviewed for accuracy. There may be minor misspellings or grammar miscues with [employer] voice recognition. documented in this encounterOhiohealth O'Bleness [facility]04-07-2022 Miscellaneous Notes* Telephone Encounter - Mckenna Dc LPN - 06/08/2021 1:55 PM EDT Patient notified of results, verbalizes understanding of instructions. Mckenna Dc LPN * Telephone Encounter - Angeline Ray APRN.CNP - 06/08/2021 1:10 PM EDT Please let Anaya know that we received her lab results. Her A1C has improved to 5.6, which is outof the prediabetes range. Her cholesterol level has increased a bit. Following a low fat low cholesterol diet, as well as exercise, can help improve these results. Angeline Ray APRN.CNP documented in this encounterOhiohealth O'Bleness [facility]04-06-2022 History of Present illness Narrative* Efra Stinson MD - 06/07/2021 10:06 AM EDT Patient presents with: Left Hip Pain: x [...] Take 5,000 Units by mouth once daily. ujtjz-9j-mgp-epa-fish oil-D3 (VITAMIN-D + OMEGA-3) 350 mg- 1,000 [...] kg (115 lb 9.6 oz) SpO2 98% BMI23.75 kg/m PHYSICAL EXAM: GEN: pleasant, no acute [...] tolerated. Efra Stinson MD documented in this encounterOhiohealth O'Bleness Hospital03-01-2022 History of Present illness Narrative* Lizette Wills RT(R) - 05/02/2021 1:30 PM EST Radiology Service Progress Note PATIENT NAME: Anaya De La O DATE OF SERVICE: May 02, 2021 TIME: 1:40 PM PATIENT IDENTITY VERIFICATION COMPLETED USING TWO (2) IDENTIFIERS: Name and Date of confirmedby patient verbally. FALL SCREENING: Has the patient had 2 falls in the last year or 1 fall with injury or currently using an Ambulatory Assistive Device (Walker, Cane, Wheelchair, Crutches, etc.)? No PATIENT GENDER DATA: Female. status: : No status: NO. PATIENT RELEVANT IMPLANT DATA REVIEWED: Not Applicable RADIOLOGY DEPARTMENT: General X-ray: Exam(s) Completed: Upper Extremity X- Ray(s): Hand, bilateral PERIPHERAL IV DATA: Not applicable SIGNED BY: RT Paulie(R) May 02, 2021 1:40 PM documented in this encounterOhiohealth O'Bleness Hospital02-07-2022 History of Present illness Narrative* Grace Cr RT(R) - 04/10/2021 2:50 PM EST Radiology Service Progress Note PATIENT NAME: Anaya De La O DATE OF SERVICE: April 10, 2021 TIME: 3:01 PM PATIENT IDENTITY VERIFICATION COMPLETED USING TWO (2) IDENTIFIERS: Name and Date of confirmedby patient verbally. FALL SCREENING: Has the patient [...] 10, 2021 3:01 PM documented in this encounterOhiohealth O'Bleness [facility]08-02-2021 History of Present illness Narrative* Grace Cr RT(R) - 10/03/2020 12:50 PM EDT Radiology Service Progress Note PATIENT NAME: Anaya De La O DATE OF SERVICE: October 03, 2020 TIME: 1:01 PM PATIENT IDENTITY VERIFICATION COMPLETED USING TWO (2) IDENTIFIERS: Name and Date of confirmedby patient verbally. FALL SCREENING: Has the patient [...] 03, 2020 1:01 PM documented in this encounterOhiohealth O'Bleness Hospital04-03-2018 History of Past illness Narrative* Problem Noted Date Resolved Date OA (osteoarthritis) of knee 06/04/201706/2017 Chronic pain of right knee 05/20/201707/04 Primary osteoarthritis of left knee 05/10/2017 06/05/2017 Overview: Added automatically from request for surgery [id number] Abdominal pain 11/01/2016 05/20/2017 Cystitis 11/01/2016 05/20/2017 [...] of this encounter (statuses as of 06/07/2021) [facility] of Past illness Narrative* Problem Noted Date Resolved Date OA (osteoarthritis) of knee 06/04/201706/2017 Chronic pain of right knee 05/20/201707/04 Primary osteoarthritis of left knee 05/10/2017 06/05/2017 Overview: Added automatically from request for surgery [id number] Abdominal pain 11/01/2016 05/20/2017 Cystitis 11/01/2016 05/20/2017 [...] of this encounter (statuses as of 06/09/2021) [facility] of Past illness Narrative* Problem Noted Date Resolved Date OA (osteoarthritis) of knee 06/04/201706/2017 Chronic pain of right knee 05/20/201707/04 Primary osteoarthritis of left knee 05/10/2017 06/05/2017 Overview: Added automatically from request for surgery [id number] Abdominal pain 11/01/2016 05/20/2017 Cystitis 11/01/2016 05/20/2017 [...] of this encounter (statuses as of 06/13/2021) [facility] of Past illness Narrative* Problem Noted Date Resolved Date OA (osteoarthritis) of knee 06/04/201706/2017 Chronic pain of right knee 05/20/201707/04 Primary osteoarthritis of left knee 05/10/2017 06/05/2017 Overview: Added automatically from request for surgery [id number] Abdominal pain 11/01/2016 05/20/2017 Cystitis 11/01/2016 05/20/2017 [...] of this encounter (statuses as of 06/16/2021) [facility] of [facility] illness Narrative* Problem Noted Date Resolved Date OA (osteoarthritis) of knee 06/04/20170 06/2017 Chronic pain of right knee 05/20/201707/04 Primary osteoarthritis of left knee 05/10/2017 06/05/2017 Overview: Added automatically from request for surgery [id number] Abdominal pain 11/01/2016 05/20/2017 Cystitis 11/01/2016 05/20/2017 [...] of this encounter (statuses as of 06/23/2021) [facility] of [facility] illness Narrative* Problem Noted Date Resolved Date OA (osteoarthritis) of knee 06/04/20170 06/2017 Chronic pain of right knee 05/20/201707/04 Primary osteoarthritis of left knee 05/10/2017 06/05/2017 Overview: Added automatically from request for surgery [id number] Abdominal pain 11/01/2016 05/20/2017 Cystitis 11/01/2016 05/20/2017 [...] of this encounter (statuses as of 06/28/2021) [facility] History of Past illness Narrative* Problem Noted Date Resolved Date OA (osteoarthritis) of knee 06/04/201706/2017 Chronic pain of right knee 05/20/201707/04 Primary osteoarthritis of left knee 05/10/2017 06/05/2017 Overview: Added automatically from request for surgery [id number] Abdominal pain 11/01/2016 05/20/2017 Cystitis 11/01/2016 05/20/2017 [...] of this encounter (statuses as of 06/29/2021) [facility] History of Past illness Narrative* Problem Noted Date Resolved Date OA (osteoarthritis) of knee 06/04/20170 06/2017 Chronic pain of right knee 05/20/201707/04 Primary osteoarthritis of left knee 05/10/2017 06/05/2017 Overview: Added automatically from request for surgery [id number] Abdominal pain 11/01/2016 05/20/2017 Cystitis 11/01/2016 05/20/2017 [...] of this encounter (statuses as of 07/05/2021) [facility] History of Past illness Narrative* Problem Noted Date Resolved Date OA (osteoarthritis) of knee 06/04/2017 0406/2017 Chronic pain of right knee 05/20/201707/04 Primary osteoarthritis of left knee 05/10/2017 06/05/2017 Overview: Added automatically from request for surgery [id number] Abdominal pain 11/01/2016 05/20/2017 Cystitis 11/01/2016 05/20/2017 [...] of this encounter (statuses as of 07/17/2021) [facility] History of Past illness Narrative* Problem Noted Date Resolved Date OA (osteoarthritis) of knee 06/04/20170 06/2017 Chronic pain of right knee 05/20/201707/04 Primary osteoarthritis of left knee 05/10/2017 06/05/2017 Overview: Added automatically from request for surgery [id number] Abdominal pain 11/01/2016 05/20/2017 Cystitis 11/01/2016 05/20/2017 [...] of this encounter (statuses as of 07/18/2021) [facility] History of Past illness Narrative* Problem Noted Date Resolved Date OA (osteoarthritis) of knee 06/04/20170 06/2017 Chronic pain of right knee 05/20/201707/04 Primary osteoarthritis of left knee 05/10/2017 06/05/2017 Overview: Added automatically from request for surgery [id number] Abdominal pain 11/01/2016 05/20/2017 Cystitis 11/01/2016 05/20/2017 [...] of this encounter (statuses as of 07/19/2021) [facility] History of Past illness Narrative* Problem Noted Date Resolved Date OA (osteoarthritis) of knee 06/04/20170 06/2017 Chronic pain of right knee 05/20/201707/04 Primary osteoarthritis of left knee 05/10/2017 06/05/2017 Overview: Added automatically from request for surgery [id number] Abdominal pain 11/01/2016 05/20/2017 Cystitis 11/01/2016 05/20/2017 [...] of this encounter (statuses as of 07/21/2021) [facility] History of Past illness Narrative* Problem Noted Date Resolved Date OA (osteoarthritis) of knee 06/04/20170 06/2017 Chronic pain of right knee 05/20/201707/04 Primary osteoarthritis of left knee 05/10/2017 06/05/2017 Overview: Added automatically from request for surgery [id number] Abdominal pain 11/01/2016 05/20/2017 Cystitis 11/01/2016 05/20/2017 [...] of this encounter (statuses as of 07/24/2021) [facility] History of Past illness Narrative* Problem Noted Date Resolved Date OA (osteoarthritis) of knee 06/04/201706/2017 Chronic pain of right knee 05/20/201707/04 Primary osteoarthritis of left knee 05/10/2017 06/05/2017 Overview: Added automatically from request for surgery [id number] Abdominal pain 11/01/2016 05/20/2017 Cystitis 11/01/2016 05/20/2017 [...] of this encounter (statuses as of 08/02/2021) [facility] History of Past illness Narrative* Problem Noted Date Resolved Date OA (osteoarthritis) of knee 06/04/2017/0 06/2017 Chronic pain of right knee 05/20/201707/04 Primary osteoarthritis of left knee 05/10/2017 06/05/2017 Overview: Added automatically from request for surgery [id number] Abdominal pain 11/01/2016 05/20/2017 Cystitis 11/01/2016 05/20/2017 [...] of this encounter (statuses as of 08/03/2021) [facility] History of Past illness Narrative* Problem Noted Date Resolved Date OA (osteoarthritis) of knee 06/04/201706/2017 Chronic pain of right knee 05/20/201707/04 Primary osteoarthritis of left knee 05/10/2017 06/05/2017 Overview: Added automatically from request for surgery [id number] Abdominal pain 11/01/2016 05/20/2017 Cystitis 11/01/2016 05/20/2017 [...] of this encounter (statuses as of 08/07/2021) [facility] History of Past illness Narrative* Problem Noted Date Resolved Date OA (osteoarthritis) of knee 06/04/201706/2017 Chronic pain of right knee 05/20/201707/04 Primary osteoarthritis of left knee 05/10/2017 06/05/2017 Overview: Added automatically from request for surgery [id number] Abdominal pain 11/01/2016 05/20/2017 Cystitis 11/01/2016 05/20/2017 [...] of this encounter (statuses as of 09/12/2021) [facility] History of Past illness Narrative* Problem Noted Date Resolved Date OA (osteoarthritis) of knee 06/04/20170 06/2017 Chronic pain of right knee 05/20/201707/04 Primary osteoarthritis of left knee 05/10/2017 06/05/2017 Overview: Added automatically from request for surgery [id number] Abdominal pain 11/01/2016 05/20/2017 Cystitis 11/01/2016 05/20/2017 [...] of this encounter (statuses as of 09/18/2021) [facility] History of Past illness Narrative* Problem Noted Date Resolved Date OA (osteoarthritis) of knee 06/04/201706/2017 Chronic pain of right knee 05/20/201707/04 Primary osteoarthritis of left knee 05/10/2017 06/05/2017 Overview: Added automatically from request for surgery [id number] Abdominal pain 11/01/2016 05/20/2017 Cystitis 11/01/2016 05/20/2017 [...] of this encounter (statuses as of 09/18/2021) [facility] History of Past illness Narrative* Problem Noted Date Resolved Date OA (osteoarthritis) of knee 06/04/201706/2017 Chronic pain of right knee 05/20/201707/04 Primary osteoarthritis of left knee 05/10/2017 06/05/2017 Overview: Added automatically from request for surgery [id number] Abdominal pain 11/01/2016 05/20/2017 Cystitis 11/01/2016 05/20/2017 [...] of this encounter (statuses as of 10/12/2021) [facility] History of Past illness Narrative* Problem Noted Date Resolved Date OA (osteoarthritis) of knee 06/04/2017 0406/2017 Chronic pain of right knee 05/20/201707/04 Primary osteoarthritis of left knee 05/10/2017 06/05/2017 Overview: Added automatically from request for surgery [id number] Abdominal pain 11/01/2016 05/20/2017 Cystitis 11/01/2016 05/20/2017 [...] of this encounter (statuses as of 10/20/2021) [facility] History of Past illness Narrative* Problem Noted Date Resolved Date OA (osteoarthritis) of knee 06/04/20170 06/2017 Chronic pain of right knee 05/20/201707/04 Primary osteoarthritis of left knee 05/10/2017 06/05/2017 Overview: Added automatically from request for surgery [id number] Abdominal pain 11/01/2016 05/20/2017 Cystitis 11/01/2016 05/20/2017 [...] of this encounter (statuses as of 10/27/2021) [facility] History of Past illness Narrative* Problem Noted Date Resolved Date OA (osteoarthritis) of knee 06/04/20170 06/2017 Chronic pain of right knee 05/20/201707/04 Primary osteoarthritis of left knee 05/10/2017 06/05/2017 Overview: Added automatically from request for surgery [id number] Abdominal pain 11/01/2016 05/20/2017 Cystitis 11/01/2016 05/20/2017 [...] of this encounter (statuses as of 10/29/2021) [facility] History of Past illness Narrative* Problem Noted Date Resolved Date OA (osteoarthritis) of knee 06/04/20170 06/2017 Chronic pain of right knee 05/20/201707/04 Primary osteoarthritis of left knee 05/10/2017 06/05/2017 Overview: Added automatically from request for surgery [id number] Abdominal pain 11/01/2016 05/20/2017 Cystitis 11/01/2016 05/20/2017 [...] of this encounter (statuses as of 10/30/2021) [facility] History of Past illness Narrative* Problem Noted Date Resolved Date OA (osteoarthritis) of knee 06/04/20170 06/2017 Chronic pain of right knee 05/20/201707/04 Primary osteoarthritis of left knee 05/10/2017 06/05/2017 Overview: Added automatically from request for surgery [id number] Abdominal pain 11/01/2016 05/20/2017 Cystitis 11/01/2016 05/20/2017 [...] of this encounter (statuses as of 10/30/2021) [facility] History of Past illness Narrative* Problem Noted Date Resolved Date OA (osteoarthritis) of knee 06/04/201706/2017 Chronic pain of right knee 05/20/201707/04 Primary osteoarthritis of left knee 05/10/2017 06/05/2017 Overview: Added automatically from request for surgery [id number] Abdominal pain 11/01/2016 05/20/2017 Cystitis 11/01/2016 05/20/2017 [...] of this encounter (statuses as of 11/01/2021) [facility] History of Past illness Narrative* Problem Noted Date Resolved Date OA (osteoarthritis) of knee 06/04/201706/2017 Chronic pain of right knee 05/20/201707/04 Primary osteoarthritis of left knee 05/10/2017 06/05/2017 Overview: Added automatically from request for surgery [id number] Abdominal pain 11/01/2016 05/20/2017 Cystitis 11/01/2016 05/20/2017 [...] of this encounter (statuses as of 11/01/2021) [facility] History of Past illness Narrative* Problem Noted Date Resolved Date OA (osteoarthritis) of knee 06/04/2017 04/0 06/2017 Chronic pain of right knee 05/20/201707/04 Primary osteoarthritis of left knee 05/10/2017 06/05/2017 Overview: Added automatically from request for surgery [id number] Abdominal pain 11/01/2016 05/20/2017 Cystitis 11/01/2016 05/20/2017 [...] of this encounter (statuses as of 11/20/2021) [facility] History of Past illness Narrative* Problem Noted Date Resolved Date OA (osteoarthritis) of knee 06/04/2017/0 06/2017 Chronic pain of right knee 05/20/201707/04 Primary osteoarthritis of left knee 05/10/2017 06/05/2017 Overview: Added automatically from request for surgery [id number] Abdominal pain 11/01/2016 05/20/2017 Cystitis 11/01/2016 05/20/2017 [...] of this encounter (statuses as of 12/03/2021) [facility] History of Past illness Narrative* Problem Noted Date Resolved Date OA (osteoarthritis) of knee 06/04/20170 06/2017 Chronic pain of right knee 05/20/201707/04 Primary osteoarthritis of left knee 05/10/2017 06/05/2017 Overview: Added automatically from request for surgery [id number] Abdominal pain 11/01/2016 05/20/2017 Cystitis 11/01/2016 05/20/2017 [...] of this encounter (statuses as of 12/05/2021) [facility] History of Past illness Narrative* Problem Noted Date Resolved Date OA (osteoarthritis) of knee 06/04/20170 06/2017 Chronic pain of right knee 05/20/201707/04 Primary osteoarthritis of left knee 05/10/2017 06/05/2017 Overview: Added automatically from request for surgery [id number] Abdominal pain 11/01/2016 05/20/2017 Cystitis 11/01/2016 05/20/2017 [...] of this encounter (statuses as of 12/06/2021) [facility] History of Past illness Narrative* Problem Noted Date Resolved Date OA (osteoarthritis) of knee 06/04/20170 06/2017 Chronic pain of right knee 05/20/201707/04 Primary osteoarthritis of left knee 05/10/2017 06/05/2017 Overview: Added automatically from request for surgery [id number] Abdominal pain 11/01/2016 05/20/2017 Cystitis 11/01/2016 05/20/2017 [...] of this encounter (statuses as of 12/22/2021) [facility] History of Past illness Narrative* Problem Noted Date Resolved Date OA (osteoarthritis) of knee 06/04/20170 06/2017 Chronic pain of right knee 05/20/201707/04 Primary osteoarthritis of left knee 05/10/2017 06/05/2017 Overview: Added automatically from request for surgery [id number] Abdominal pain 11/01/2016 05/20/2017 Cystitis 11/01/2016 05/20/2017 [...] of this encounter (statuses as of 12/23/2021) [facility] History of Past illness Narrative* Problem Noted Date Resolved Date OA (osteoarthritis) of knee 06/04/201706/2017 Chronic pain of right knee 05/20/201707/04 Primary osteoarthritis of left knee 05/10/2017 06/05/2017 Overview: Added automatically from request for surgery [id number] Abdominal pain 11/01/2016 05/20/2017 Cystitis 11/01/2016 05/20/2017 [...] of this encounter (statuses as of 01/12/2022) [facility] History of Past illness Narrative* Problem Noted Date Resolved Date OA (osteoarthritis) of knee 06/04/201706/2017 Chronic pain of right knee 05/20/201707/04 Primary osteoarthritis of left knee 05/10/2017 06/05/2017 Overview: Added automatically from request for surgery [id number] Abdominal pain 11/01/2016 05/20/2017 Cystitis 11/01/2016 05/20/2017 [...] of this encounter (statuses as of 01/12/2022) [facility] History of Past illness Narrative* Problem Noted Date Resolved Date OA (osteoarthritis) of knee 06/04/20170 06/2017 Chronic pain of right knee 05/20/201707/04 Primary osteoarthritis of left knee 05/10/2017 06/05/2017 Overview: Added automatically from request for surgery [id number] Abdominal pain 11/01/2016 05/20/2017 Cystitis 11/01/2016 05/20/2017 [...] of this encounter (statuses as of 01/14/2022) [facility] History of Past illness Narrative* Problem Noted Date Resolved Date OA (osteoarthritis) of knee 06/04/2017 04/0 06/2017 Chronic pain of right knee 05/20/201707/04 Primary osteoarthritis of left knee 05/10/2017 06/05/2017 Overview: Added automatically from request for surgery [id number] Abdominal pain 11/01/2016 05/20/2017 Cystitis 11/01/2016 05/20/2017 [...] of this encounter (statuses as of 01/16/2022) [facility] History of Past illness Narrative* Problem Noted Date Resolved Date OA (osteoarthritis) of knee 06/04/20170 06/2017 Chronic pain of right knee 05/20/201707/04 Primary osteoarthritis of left knee 05/10/2017 06/05/2017 Overview: Added automatically from request for surgery [id number] Abdominal pain 11/01/2016 05/20/2017 Cystitis 11/01/2016 05/20/2017 [...] of this encounter (statuses as of 01/16/2022) [facility] History of Past illness Narrative* Problem Noted Date Resolved Date OA (osteoarthritis) of knee 06/04/20170 06/2017 Chronic pain of right knee 05/20/201707/04 Primary osteoarthritis of left knee 05/10/2017 06/05/2017 Overview: Added automatically from request for surgery [id number] Abdominal pain 11/01/2016 05/20/2017 Cystitis 11/01/2016 05/20/2017 [...] of this encounter (statuses as of 01/20/2022) [facility] History of Past illness Narrative* Problem Noted Date Resolved Date OA (osteoarthritis) of knee 06/04/20170 06/2017 Chronic pain of right knee 05/20/201707/04 Primary osteoarthritis of left knee 05/10/2017 06/05/2017 Overview: Added automatically from request for surgery [id number] Abdominal pain 11/01/2016 05/20/2017 Cystitis 11/01/2016 05/20/2017 [...] of this encounter (statuses as of 01/23/2022) [facility] History of Past illness Narrative* Problem Noted Date Resolved Date OA (osteoarthritis) of knee 06/04/20170 06/2017 Chronic pain of right knee 05/20/201707/04 Primary osteoarthritis of left knee 05/10/2017 06/05/2017 Overview: Added automatically from request for surgery [id number] Abdominal pain 11/01/2016 05/20/2017 Cystitis 11/01/2016 05/20/2017 [...] of this encounter (statuses as of 01/23/2022) [facility] History of Past illness Narrative* Problem Noted Date Resolved Date OA (osteoarthritis) of knee 06/04/201706/2017 Chronic pain of right knee 05/20/201707/04 Primary osteoarthritis of left knee 05/10/2017 06/05/2017 Overview: Added automatically from request for surgery [id number] Abdominal pain 11/01/2016 05/20/2017 Cystitis 11/01/2016 05/20/2017 [...] of this encounter (statuses as of 01/24/2022) [facility] History of Past illness Narrative* Problem Noted Date Resolved Date OA (osteoarthritis) of knee 06/04/201706/2017 Chronic pain of right knee 05/20/201707/04 Primary osteoarthritis of left knee 05/10/2017 06/05/2017 Overview: Added automatically from request for surgery [id number] Abdominal pain 11/01/2016 05/20/2017 Cystitis 11/01/2016 05/20/2017 [...] of this encounter (statuses as of 02/09/2022) [facility] History of Past illness Narrative* Problem Noted Date Resolved Date OA (osteoarthritis) of knee 06/04/2017 04/0 06/2017 Chronic pain of right knee 05/20/201707/04 Primary osteoarthritis of left knee 05/10/2017 06/05/2017 Overview: Added automatically from request for surgery [id number] Abdominal pain 11/01/2016 05/20/2017 Cystitis 11/01/2016 05/20/2017 [...] of this encounter (statuses as of 02/10/2022) [facility] History of Past illness Narrative* Problem Noted Date Resolved Date OA (osteoarthritis) of knee 06/04/2017 04/0 06/2017 Chronic pain of right knee 05/20/201707/04 Primary osteoarthritis of left knee 05/10/2017 06/05/2017 Overview: Added automatically from request for surgery [id number] Abdominal pain 11/01/2016 05/20/2017 Cystitis 11/01/2016 05/20/2017 [...] of this encounter (statuses as of 02/11/2022) [facility] History of Past illness Narrative* Problem Noted Date Resolved Date OA (osteoarthritis) of knee 06/04/20170 06/2017 Chronic pain of right knee 05/20/201707/04 Primary osteoarthritis of left knee 05/10/2017 06/05/2017 Overview: Added automatically from request for surgery [id number] Abdominal pain 11/01/2016 05/20/2017 Cystitis 11/01/2016 05/20/2017 [...] of this encounter (statuses as of 02/14/2022) [facility] History of Past illness Narrative* Problem Noted Date Resolved Date OA (osteoarthritis) of knee 06/04/20170 06/2017 Chronic pain of right knee 05/20/201707/04 Primary osteoarthritis of left knee 05/10/2017 06/05/2017 Overview: Added automatically from request for surgery [id number] Abdominal pain 11/01/2016 05/20/2017 Cystitis 11/01/2016 05/20/2017 [...] of this encounter (statuses as of 02/16/2022) [facility] History of Past illness Narrative* Problem Noted Date Resolved Date OA (osteoarthritis) of knee 06/04/20170 06/2017 Chronic pain of right knee 05/20/201707/04 Primary osteoarthritis of left knee 05/10/2017 06/05/2017 Overview: Added automatically from request for surgery [id number] Abdominal pain 11/01/2016 05/20/2017 Cystitis 11/01/2016 05/20/2017 [...] of this encounter (statuses as of 03/08/2022) [facility] History of Past illness Narrative* Problem Noted Date Resolved Date OA (osteoarthritis) of knee 06/04/20170 06/2017 Chronic pain of right knee 05/20/201707/04 Primary osteoarthritis of left knee 05/10/2017 06/05/2017 Overview: Added automatically from request for surgery [id number] Abdominal pain 11/01/2016 05/20/2017 Cystitis 11/01/2016 05/20/2017 [...] of this encounter (statuses as of 03/08/2022) [facility] History of Past illness Narrative* Problem Noted Date Resolved Date OA (osteoarthritis) of knee 06/04/201706/2017 Chronic pain of right knee 05/20/201707/04 Primary osteoarthritis of left knee 05/10/2017 06/05/2017 Overview: Added automatically from request for surgery [id number] Abdominal pain 11/01/2016 05/20/2017 Cystitis 11/01/2016 05/20/2017 [...] of this encounter (statuses as of 03/09/2022) [facility] of Past illness Narrative* Problem Noted Date Resolved Date OA (osteoarthritis) of knee 06/04/201706/2017 Chronic pain of right knee 05/20/201707/04 Primary osteoarthritis of left knee 05/10/2017 06/05/2017 Overview: Added automatically from request for surgery [id number] Abdominal pain 11/01/2016 05/20/2017 Cystitis 11/01/2016 05/20/2017 [...] of this encounter (statuses as of 03/22/2022) [facility] of Past illness Narrative* Problem Noted Date Resolved Date OA (osteoarthritis) of knee 06/04/201706/2017 Chronic pain of right knee 05/20/201707/04 Primary osteoarthritis of left knee 05/10/2017 06/05/2017 Overview: Added automatically from request for surgery [id number] Abdominal pain 11/01/2016 05/20/2017 Cystitis 11/01/2016 05/20/2017 [...] of this encounter (statuses as of 04/05/2022) [facility] of Past illness Narrative* Problem Noted Date Resolved Date OA (osteoarthritis) of knee 06/04/2017 04/06/2017 Chronic pain of right knee 05/20/201707/04 Primary osteoarthritis of left knee 05/10/2017 06/05/2017 Overview: Added automatically from request for surgery [id number] Abdominal pain 11/01/2016 05/20/2017 Cystitis 11/01/2016 05/20/2017 [...] of this encounter (statuses as of 04/07/2022) [facility] of Past illness Narrative* Problem Noted Date Resolved Date OA (osteoarthritis) of knee 06/04/20170 06/2017 Chronic pain of right knee 05/20/201707/04 Primary osteoarthritis of left knee 05/10/2017 06/05/2017 Overview: Added automatically from request for surgery [id number] Abdominal pain 11/01/2016 05/20/2017 Cystitis 11/01/2016 05/20/2017 [...] of this encounter (statuses as of 04/09/2022) [facility] of Past illness Narrative* Problem Noted Date Resolved Date OA (osteoarthritis) of knee 06/04/20170 06/2017 Chronic pain of right knee 05/20/201707/04 Primary osteoarthritis of left knee 05/10/2017 06/05/2017 Overview: Added automatically from request for surgery [id number] Abdominal pain 11/01/2016 05/20/2017 Cystitis 11/01/2016 05/20/2017 [...] of this encounter (statuses as of 04/12/2022) [facility] of Past illness Narrative* Problem Noted Date Resolved Date OA (osteoarthritis) of knee 06/04/2017 040 06/2017 Chronic pain of right knee 05/20/201707/04 Primary osteoarthritis of left knee 05/10/2017 06/05/2017 Overview: Added automatically from request for surgery [id number] Abdominal pain 11/01/2016 05/20/2017 Cystitis 11/01/2016 05/20/2017 [...] of this encounter (statuses as of 04/16/2022) [facility] of Past illness Narrative* Problem Noted Date Resolved Date OA (osteoarthritis) of knee 06/04/2017 040 06/2017 Chronic pain of right knee 05/20/201707/04 Primary osteoarthritis of left knee 05/10/2017 06/05/2017 Overview: Added automatically from request for surgery [id number] Abdominal pain 11/01/2016 05/20/2017 Cystitis 11/01/2016 05/20/2017 [...] of this encounter (statuses as of 04/17/2022) [facility] of Past illness Narrative* Problem Noted Date Resolved Date OA (osteoarthritis) of knee 06/04/201706/2017 Chronic pain of right knee 05/20/201707/04 Primary osteoarthritis of left knee 05/10/2017 06/05/2017 Overview: Added automatically from request for surgery [id number] Abdominal pain 11/01/2016 05/20/2017 Cystitis 11/01/2016 05/20/2017 [...] of this encounter (statuses as of 04/17/2022) [facility] of Past illness Narrative* Problem Noted Date Resolved Date OA (osteoarthritis) of knee 06/04/201706/2017 Chronic pain of right knee 05/20/201707/04 Primary osteoarthritis of left knee 05/10/2017 06/05/2017 Overview: Added automatically from request for surgery [id number] Abdominal pain 11/01/2016 05/20/2017 Cystitis 11/01/2016 05/20/2017 [...] of this encounter (statuses as of 04/19/2022) [facility] Past [facility] Narrative* Problem Noted Date Resolved Date OA (osteoarthritis) of knee 06/04/201706/2017 Chronic pain of right knee 05/20/201707/04 Primary osteoarthritis of left knee 05/10/2017 06/05/2017 Overview: Added automatically from request for surgery [id number] Abdominal pain 11/01/2016 05/20/2017 Cystitis 11/01/2016 05/20/2017 [...] of this encounter (statuses as of 04/20/2022) [facility]04-[facility]2018 History of Past illness Narrative* Problem Noted Date Resolved Date OA (osteoarthritis) of knee 06/04/2017 04/0 06/2017 Chronic pain of right knee 05/20/201707/04 Primary osteoarthritis of left knee 05/10/2017 06/05/2017 Overview: Added automatically from request for surgery [id number] Abdominal pain 11/01/2016 05/20/2017 Cystitis 11/01/2016 05/20/2017 [...] of this encounter (statuses as of 04/25/2022) [facility] History of Past illness Narrative* Problem Noted Date Resolved Date OA (osteoarthritis) of knee 06/04/20170 06/2017 Chronic pain of right knee 05/20/201707/04 Primary osteoarthritis of left knee 05/10/2017 06/05/2017 Overview: Added automatically from request for surgery [id number] Abdominal pain 11/01/2016 05/20/2017 Cystitis 11/01/2016 05/20/2017 Skin tear of lower leg without complication 05/0309/19/2016 Carpal tunnel syndrome 11/19/2011 7 Acute tracheobronchitis 03/07/2011 02/01/20 12 Cough 07/23/2008 02/01/2012 Ganglion of joint 07/16/2005 09/19/2016 Other disorders of synovium, tendon, and bursa(7 27.89) 01/08/2005 05/30/2015 Abdominal pain, right upper quadrant 02/01/2012 Unspecified constipation 11/30/2 012 Diverticulosis of colon (without mention of hemo rrhage) 05/30/2015 Hemorrhage of rectum and anus documented as of this encounter (statuses as of 04/25/2022) [facility] History of Past illness Narrative* Problem Noted Date Resolved Date OA (osteoarthritis) of knee 06/04/2017 04/0 06/2017 Chronic pain of right knee 05/20/201707/04 Primary osteoarthritis of left knee 05/10/2017 06/05/2017 Overview: Added automatically from request for surgery [id number] Abdominal pain 11/01/2016 05/20/2017 Cystitis 11/01/2016 05/20/2017 [...] of this encounter (statuses as of 04/27/2022) [facility] History of Past illness Narrative* Problem Noted Date Resolved Date OA (osteoarthritis) of knee 06/04/20170 06/2017 Chronic pain of right knee 05/20/201707/04 Primary osteoarthritis of left knee 05/10/2017 06/05/2017 Overview: Added automatically from request for surgery [id number] Abdominal pain 11/01/2016 05/20/2017 Cystitis 11/01/2016 05/20/2017 [...] of this encounter (statuses as of 05/03/2022) [facility] History of Past illness Narrative* Problem Noted Date Resolved Date OA (osteoarthritis) of knee 06/04/20170 06/2017 Chronic pain of right knee 05/20/201707/04 Primary osteoarthritis of left knee 05/10/2017 06/05/2017 Overview: Added automatically from request for surgery [id number] Abdominal pain 11/01/2016 05/20/2017 Cystitis 11/01/2016 05/20/2017 [...] of this encounter (statuses as of 05/08/2022) [facility] History of Past illness Narrative* Problem Noted Date Resolved Date OA (osteoarthritis) of knee 06/04/20170 06/2017 Chronic pain of right knee 05/20/201707/04 Primary osteoarthritis of left knee 05/10/2017 06/05/2017 Overview: Added automatically from request for surgery [id number] Abdominal pain 11/01/2016 05/20/2017 Cystitis 11/01/2016 05/20/2017 [...] of this encounter (statuses as of 05/08/2022) [facility] History of Past illness Narrative* Problem Noted Date Resolved Date OA (osteoarthritis) of knee 06/04/201706/2017 Chronic pain of right knee 05/20/201707/04 Primary osteoarthritis of left knee 05/10/2017 06/05/2017 Overview: Added automatically from request for surgery [id number] Abdominal pain 11/01/2016 05/20/2017 Cystitis 11/01/2016 05/20/2017 [...] of this encounter (statuses as of 05/13/2022) [facility] History of Past illness Narrative* Problem Noted Date Resolved Date OA (osteoarthritis) of knee 06/04/20170 06/2017 Chronic pain of right knee 05/20/201707/04 Primary osteoarthritis of left knee 05/10/2017 06/05/2017 Overview: Added automatically from request for surgery [id number] Abdominal pain 11/01/2016 05/20/2017 Cystitis 11/01/2016 05/20/2017 [...] of this encounter (statuses as of 05/20/2022) [facility] History of Past illness Narrative* Problem Noted Date Resolved Date OA (osteoarthritis) of knee 06/04/2017 04/0 06/2017 Chronic pain of right knee 05/20/201707/04 Primary osteoarthritis of left knee 05/10/2017 06/05/2017 Overview: Added automatically from request for surgery [id number] Abdominal pain 11/01/2016 05/20/2017 Cystitis 11/01/2016 05/20/2017 [...] of this encounter (statuses as of 05/22/2022) [facility] History of Past illness Narrative* Problem Noted Date Resolved Date OA (osteoarthritis) of knee 06/04/20170 06/2017 Chronic pain of right knee 05/20/201707/04 Primary osteoarthritis of left knee 05/10/2017 06/05/2017 Overview: Added automatically from request for surgery [id number] Abdominal pain 11/01/2016 05/20/2017 Cystitis 11/01/2016 05/20/2017 [...] of this encounter (statuses as of 05/23/2022) [facility] History of Past illness Narrative* Problem Noted Date Resolved Date OA (osteoarthritis) of knee 06/04/20170 06/2017 Chronic pain of right knee 05/20/201707/04 Primary osteoarthritis of left knee 05/10/2017 06/05/2017 Overview: Added automatically from request for surgery [id number] Abdominal pain 11/01/2016 05/20/2017 Cystitis 11/01/2016 05/20/2017 [...] of this encounter (statuses as of 06/11/2022) [facility] History of Past illness Narrative* Problem Noted Date Resolved Date OA (osteoarthritis) of knee 06/04/20170 06/2017 Chronic pain of right knee 05/20/201707/04 Primary osteoarthritis of left knee 05/10/2017 06/05/2017 Overview: Added automatically from request for surgery [id number] Abdominal pain 11/01/2016 05/20/2017 Cystitis 11/01/2016 05/20/2017 [...] of this encounter (statuses as of 06/16/2022) [facility] History of Past illness Narrative* Problem Noted Date Resolved Date OA (osteoarthritis) of knee 06/04/20170 06/2017 Chronic pain of right knee 05/20/201707/04 Primary osteoarthritis of left knee 05/10/2017 06/05/2017 Overview: Added automatically from request for surgery [id number] Abdominal pain 11/01/2016 05/20/2017 Cystitis 11/01/2016 05/20/2017 [...] of this encounter (statuses as of 06/22/2022) [facility] History of Past illness Narrative* Problem Noted Date Resolved Date OA (osteoarthritis) of knee 06/04/201706/2017 Chronic pain of right knee 05/20/201707/04 Primary osteoarthritis of left knee 05/10/2017 06/05/2017 Overview: Added automatically from request for surgery [id number] Abdominal pain 11/01/2016 05/20/2017 Cystitis 11/01/2016 05/20/2017 [...] of this encounter (statuses as of 06/28/2022) [facility] History of Past illness Narrative* Problem Noted Date Resolved Date OA (osteoarthritis) of knee 06/04/201706/2017 Chronic pain of right knee 05/20/201707/04 Primary osteoarthritis of left knee 05/10/2017 06/05/2017 Overview: Added automatically from request for surgery [id number] Abdominal pain 11/01/2016 05/20/2017 Cystitis 11/01/2016 05/20/2017 [...] of this encounter (statuses as of 07/03/2022) [facility] History of Past illness Narrative* Problem Noted Date Resolved Date OA (osteoarthritis) of knee 06/04/201706/2017 Chronic pain of right knee 05/20/201707/04 Primary osteoarthritis of left knee 05/10/2017 06/05/2017 Overview: Added automatically from request for surgery [id number] Abdominal pain 11/01/2016 05/20/2017 Cystitis 11/01/2016 05/20/2017 [...] of this encounter (statuses as of 07/11/2022) [facility] History of Past illness Narrative* Problem Noted Date Resolved Date OA (osteoarthritis) of knee 06/04/2017 04/0 06/2017 Chronic pain of right knee 05/20/201707/04 Primary osteoarthritis of left knee 05/10/2017 06/05/2017 Overview: Added automatically from request for surgery [id number] Abdominal pain 11/01/2016 05/20/2017 Cystitis 11/01/2016 05/20/2017 [...] of this encounter (statuses as of 07/14/2022) [facility] History of Past illness Narrative* Problem Noted Date Resolved Date OA (osteoarthritis) of knee 06/04/20170 06/2017 Chronic pain of right knee 05/20/201707/04 Primary osteoarthritis of left knee 05/10/2017 06/05/2017 Overview: Added automatically from request for surgery [id number] Abdominal pain 11/01/2016 05/20/2017 Cystitis 11/01/2016 05/20/2017 [...] of this encounter (statuses as of 08/01/2022) [facility] History of Past illness Narrative* Problem Noted Date Resolved Date OA (osteoarthritis) of knee 06/04/20170 06/2017 Chronic pain of right knee 05/20/201707/04 Primary osteoarthritis of left knee 05/10/2017 06/05/2017 Overview: Added automatically from request for surgery [id number] Abdominal pain 11/01/2016 05/20/2017 Cystitis 11/01/2016 05/20/2017 [...] of this encounter (statuses as of 08/16/2022) [facility] History of Past illness Narrative* Problem Noted Date Resolved Date OA (osteoarthritis) of knee 06/04/20170 06/2017 Chronic pain of right knee 05/20/201707/04 Primary osteoarthritis of left knee 05/10/2017 06/05/2017 Overview: Added automatically from request for surgery [id number] Abdominal pain 11/01/2016 05/20/2017 Cystitis 11/01/2016 05/20/2017 [...] of this encounter (statuses as of 08/31/2022) [facility] History of Past illness Narrative* Problem Noted Date Resolved Date OA (osteoarthritis) of knee 06/04/2017 04/0 06/2017 Chronic pain of right knee 05/20/201707/04 Primary osteoarthritis of left knee 05/10/2017 06/05/2017 Overview: Added automatically from request for surgery [id number] Abdominal pain 11/01/2016 05/20/2017 Cystitis 11/01/2016 05/20/2017 [...] of this encounter (statuses as of 09/05/2022) [facility] History of Past illness Narrative* Problem Noted Date Diagnosed Date Resolved Date OA (osteoarthritis) of knee 06/04/2017 06/05/2017 Chronic pain of right knee 05/20/2017 0 07/04/2017 Primary osteoarthritis of left knee 05/10/2017 06/05/2017 Overview: Added automatically from request for surgery [id number] Abdominal pain 11/01/2016 05/20/2017 Cystitis 11/01/2016 05/20/2017 [...] of this encounter (statuses as of 09/20/2022) [facility] History of Past illness Narrative* Problem Noted Date Diagnosed Date Resolved Date OA (osteoarthritis) of knee 06/04/2017 06/05/2017 Chronic pain of right knee 05/20/2017 0 07/04/2017 Primary osteoarthritis of left knee 05/10/2017 06/05/2017 Overview: Added automatically from request for surgery [id number] Abdominal pain 11/01/2016 05/20/2017 Cystitis 11/01/2016 05/20/2017 [...] of this encounter (statuses as of 09/20/2022) [facility] History of Past illness Narrative* Problem Noted Date Diagnosed Date Resolved Date OA (osteoarthritis) of knee 06/04/2017 06/05/2017 Chronic pain of right knee 05/20/2017 0 07/04/2017 Primary osteoarthritis of left knee 05/10/2017 06/05/2017 Overview: Added automatically from request for surgery [id number] Abdominal pain 11/01/2016 05/20/2017 Cystitis 11/01/2016 05/20/2017 [...] of this encounter (statuses as of 09/28/2022) [facility] History of Past illness Narrative* Problem Noted Date Diagnosed Date Resolved Date OA (osteoarthritis) of knee 06/04/2017 06/05/2017 Chronic pain of right knee 05/20/2017 0 07/04/2017 Primary osteoarthritis of left knee 05/10/2017 06/05/2017 Overview: Added automatically from request for surgery [id number] Abdominal pain 11/01/2016 05/20/2017 Cystitis 11/01/2016 05/20/2017 [...] of this encounter (statuses as of 10/06/2022) [facility] History of Past illness Narrative* Problem Noted Date Diagnosed Date Resolved Date OA (osteoarthritis) of knee 06/04/2017 06/05/2017 Chronic pain of right knee 05/20/2017 0 07/04/2017 Primary osteoarthritis of left knee 05/10/2017 06/05/2017 Overview: Added automatically from request for surgery [id number] Abdominal pain 11/01/2016 05/20/2017 Cystitis 11/01/2016 05/20/2017 [...] of this encounter (statuses as of 10/12/2022) [facility] History of Past illness Narrative* Problem Noted Date Diagnosed Date Resolved Date OA (osteoarthritis) of knee 06/04/2017 06/05/2017 Chronic pain of right knee 05/20/2017 0 07/04/2017 Primary osteoarthritis of left knee 05/10/2017 06/05/2017 Overview: Added automatically from request for surgery [id number] Abdominal pain 11/01/2016 05/20/2017 Cystitis 11/01/2016 05/20/2017 [...] of this encounter (statuses as of 10/13/2022) [facility] History of Past illness Narrative* Problem Noted Date Diagnosed Date Resolved Date OA (osteoarthritis) of knee 06/04/2017 06/05/2017 Chronic pain of right knee 05/20/2017 0 07/04/2017 Primary osteoarthritis of left knee 05/10/2017 06/05/2017 Overview: Added automatically from request for surgery [id number] Abdominal pain 11/01/2016 05/20/2017 Cystitis 11/01/2016 05/20/2017 [...] of this encounter (statuses as of 11/08/2022) [facility] History of Past illness Narrative* Problem Noted Date Diagnosed Date Resolved Date OA (osteoarthritis) of knee 06/04/2017 06/05/2017 Chronic pain of right knee 05/20/2017 0 07/04/2017 Primary osteoarthritis of left knee 05/10/2017 06/05/2017 Overview: Added automatically from request for surgery [id number] Abdominal pain 11/01/2016 05/20/2017 Cystitis 11/01/2016 05/20/2017 [...] of this encounter (statuses as of 11/14/2022) [facility] History of Past illness Narrative* Problem Noted Date Diagnosed Date Resolved Date OA (osteoarthritis) of knee 06/04/2017 06/05/2017 Chronic pain of right knee 05/20/2017 0 07/04/2017 Primary osteoarthritis of left knee 05/10/2017 06/05/2017 Overview: Added automatically from request for surgery [id number] Abdominal pain 11/01/2016 05/20/2017 Cystitis 11/01/2016 05/20/2017 [...] of this encounter (statuses as of 11/14/2022) [facility] History of Past illness Narrative* Problem Noted Date Diagnosed Date Resolved Date OA (osteoarthritis) of knee 06/04/2017 06/05/2017 Chronic pain of right knee 05/20/2017 0 07/04/2017 Primary osteoarthritis of left knee 05/10/2017 06/05/2017 Overview: Added automatically from request for surgery [id number] Abdominal pain 11/01/2016 05/20/2017 Cystitis 11/01/2016 05/20/2017 [...] of this encounter (statuses as of 11/15/2022) [facility] History of Past illness Narrative* Problem Noted Date Diagnosed Date Resolved Date OA (osteoarthritis) of knee 06/04/2017 06/05/2017 Chronic pain of right knee 05/20/2017 0 07/04/2017 Primary osteoarthritis of left knee 05/10/2017 06/05/2017 Overview: Added automatically from request for surgery [id number] Abdominal pain 11/01/2016 05/20/2017 Cystitis 11/01/2016 05/20/2017 [...] of this encounter (statuses as of 11/20/2022) [facility] History of Past illness Narrative* Problem Noted Date Diagnosed Date Resolved Date OA (osteoarthritis) of knee 06/04/2017 06/05/2017 Chronic pain of right knee 05/20/2017 0 07/04/2017 Primary osteoarthritis of left knee 05/10/2017 06/05/2017 Overview: Added automatically from request for surgery [id number] Abdominal pain 11/01/2016 05/20/2017 Cystitis 11/01/2016 05/20/2017 [...] of this encounter (statuses as of 11/23/2022) [facility] History of Past illness Narrative* Problem Noted Date Diagnosed Date Resolved Date OA (osteoarthritis) of knee 06/04/2017 06/05/2017 Chronic pain of right knee 05/20/2017 0 07/04/2017 Primary osteoarthritis of left knee 05/10/2017 06/05/2017 Overview: Added automatically from request for surgery [id number] Abdominal pain 11/01/2016 05/20/2017 Cystitis 11/01/2016 05/20/2017 [...] of this encounter (statuses as of 11/26/2022) [facility] History of Past illness Narrative* Problem Noted Date Diagnosed Date Resolved Date OA (osteoarthritis) of knee 06/04/2017 06/05/2017 Chronic pain of right knee 05/20/2017 0 07/04/2017 Primary osteoarthritis of left knee 05/10/2017 06/05/2017 Overview: Added automatically from request for surgery [id number] Abdominal pain 11/01/2016 05/20/2017 Cystitis 11/01/2016 05/20/2017 [...] of this encounter (statuses as of 12/11/2022) [facility] History of Past illness Narrative* Problem Noted Date Diagnosed Date Resolved Date OA (osteoarthritis) of knee 06/04/2017 06/05/2017 Chronic pain of right knee 05/20/2017 0 07/04/2017 Primary osteoarthritis of left knee 05/10/2017 06/05/2017 Overview: Added automatically from request for surgery [id number] Abdominal pain 11/01/2016 05/20/2017 Cystitis 11/01/2016 05/20/2017 [...] of this encounter (statuses as of 01/02/2023) [facility] History of Past illness Narrative* Problem Noted Date Diagnosed Date Resolved Date OA (osteoarthritis) of knee 06/04/2017 06/05/2017 Chronic pain of right knee 05/20/2017 0 07/04/2017 Primary osteoarthritis of left knee 05/10/2017 06/05/2017 Overview: Added automatically from request for surgery [id number] Abdominal pain 11/01/2016 05/20/2017 Cystitis 11/01/2016 05/20/2017 [...] of this encounter (statuses as of 01/06/2023) [facility] History of Past illness Narrative* Problem Noted Date Diagnosed Date Resolved Date OA (osteoarthritis) of knee 06/04/2017 06/05/2017 Chronic pain of right knee 05/20/2017 0 07/04/2017 Primary osteoarthritis of left knee 05/10/2017 06/05/2017 Overview: Added automatically from request for surgery [id number] Abdominal pain 11/01/2016 05/20/2017 Cystitis 11/01/2016 05/20/2017 [...] of this encounter (statuses as of 01/06/2023) [facility] History of Past illness Narrative* Problem Noted Date Diagnosed Date Resolved Date OA (osteoarthritis) of knee 06/04/2017 06/05/2017 Chronic pain of right knee 05/20/2017 0 07/04/2017 Primary osteoarthritis of left knee 05/10/2017 06/05/2017 Overview: Added automatically from request for surgery [id number] Abdominal pain 11/01/2016 05/20/2017 Cystitis 11/01/2016 05/20/2017 [...] of this encounter (statuses as of 01/06/2023) [facility] History of Past illness Narrative* Problem Noted Date Diagnosed Date Resolved Date OA (osteoarthritis) of knee 06/04/2017 06/05/2017 Chronic pain of right knee 05/20/2017 0 07/04/2017 Primary osteoarthritis of left knee 05/10/2017 06/05/2017 Overview: Added automatically from request for surgery [id number] Abdominal pain 11/01/2016 05/20/2017 Cystitis 11/01/2016 05/20/2017 [...] of this encounter (statuses as of 01/06/2023) [facility] History of Past illness Narrative* Problem Noted Date Diagnosed Date Resolved Date OA (osteoarthritis) of knee 06/04/2017 06/05/2017 Chronic pain of right knee 05/20/2017 0 07/04/2017 Primary osteoarthritis of left knee 05/10/2017 06/05/2017 Overview: Added automatically from request for surgery [id number] Abdominal pain 11/01/2016 05/20/2017 Cystitis 11/01/2016 05/20/2017 [...] of this encounter (statuses as of 01/10/2023) [facility] History of Past illness Narrative* Problem Noted Date Diagnosed Date Resolved Date OA (osteoarthritis) of knee 06/04/2017 06/05/2017 Chronic pain of right knee 05/20/2017 0 07/04/2017 Primary osteoarthritis of left knee 05/10/2017 06/05/2017 Overview: Added automatically from request for surgery [id number] Abdominal pain 11/01/2016 05/20/2017 Cystitis 11/01/2016 05/20/2017 [...] of this encounter (statuses as of 01/11/2023) [facility] History of Past illness Narrative* Problem Noted Date Diagnosed Date Resolved Date OA (osteoarthritis) of knee 06/04/2017 06/05/2017 Chronic pain of right knee 05/20/2017 0 07/04/2017 Primary osteoarthritis of left knee 05/10/2017 06/05/2017 Overview: Added automatically from request for surgery [id number] Abdominal pain 11/01/2016 05/20/2017 Cystitis 11/01/2016 05/20/2017 [...] of this encounter (statuses as of 01/15/2023) [facility] History of Past illness Narrative* Problem Noted Date Diagnosed Date Resolved Date OA (osteoarthritis) of knee 06/04/2017 06/05/2017 Chronic pain of right knee 05/20/2017 0 07/04/2017 Primary osteoarthritis of left knee 05/10/2017 06/05/2017 Overview: Added automatically from request for surgery [id number] Abdominal pain 11/01/2016 05/20/2017 Cystitis 11/01/2016 05/20/2017 [...] of this encounter (statuses as of 01/15/2023) [facility] History of Past illness Narrative* Problem Noted Date Diagnosed Date Resolved Date OA (osteoarthritis) of knee 06/04/2017 06/05/2017 Chronic pain of right knee 05/20/2017 0 07/04/2017 Primary osteoarthritis of left knee 05/10/2017 06/05/2017 Overview: Added automatically from request for surgery [id number] Abdominal pain 11/01/2016 05/20/2017 Cystitis 11/01/2016 05/20/2017 [...] of this encounter (statuses as of 01/17/2023) [facility] History of Past illness Narrative* Problem Noted Date Diagnosed Date Resolved Date OA (osteoarthritis) of knee 06/04/2017 06/05/2017 Chronic pain of right knee 05/20/2017 0 07/04/2017 Primary osteoarthritis of left knee 05/10/2017 06/05/2017 Overview: Added automatically from request for surgery [id number] Abdominal pain 11/01/2016 05/20/2017 Cystitis 11/01/2016 05/20/2017 [...] of this encounter (statuses as of 01/20/2023) [facility] History of Past illness Narrative* Problem Noted Date Diagnosed Date Resolved Date OA (osteoarthritis) of knee 06/04/2017 06/05/2017 Chronic pain of right knee 05/20/2017 0 07/04/2017 Primary osteoarthritis of left knee 05/10/2017 06/05/2017 Overview: Added automatically from request for surgery [id number] Abdominal pain 11/01/2016 05/20/2017 Cystitis 11/01/2016 05/20/2017 [...] of this encounter (statuses as of 01/21/2023) [facility] History of Past illness Narrative* Problem Noted Date Diagnosed Date Resolved Date OA (osteoarthritis) of knee 06/04/2017 06/05/2017 Chronic pain of right knee 05/20/2017 0 07/04/2017 Primary osteoarthritis of left knee 05/10/2017 06/05/2017 Overview: Added automatically from request for surgery [id number] Abdominal pain 11/01/2016 05/20/2017 Cystitis 11/01/2016 05/20/2017 [...] of this encounter (statuses as of 01/23/2023) [facility] History of Past illness Narrative* Problem Noted Date Diagnosed Date Resolved Date OA (osteoarthritis) of knee 06/04/2017 06/05/2017 Chronic pain of right knee 05/20/2017 0 07/04/2017 Primary osteoarthritis of left knee 05/10/2017 06/05/2017 Overview: Added automatically from request for surgery [id number] Abdominal pain 11/01/2016 05/20/2017 Cystitis 11/01/2016 05/20/2017 [...] of this encounter (statuses as of 01/29/2023) [facility] History of Past illness Narrative* Problem Noted Date Diagnosed Date Resolved Date OA (osteoarthritis) of knee 06/04/2017 06/05/2017 Chronic pain of right knee 05/20/2017 0 07/04/2017 Primary osteoarthritis of left knee 05/10/2017 06/05/2017 Overview: Added automatically from request for surgery [id number] Abdominal pain 11/01/2016 05/20/2017 Cystitis 11/01/2016 05/20/2017 [...] of this encounter (statuses as of 02/06/2023) [facility] History of Past illness Narrative* Problem Noted Date Diagnosed Date Resolved Date OA (osteoarthritis) of knee 06/04/2017 06/05/2017 Chronic pain of right knee 05/20/2017 0 07/04/2017 Primary osteoarthritis of left knee 05/10/2017 06/05/2017 Overview: Added automatically from request for surgery [id number] Abdominal pain 11/01/2016 05/20/2017 Cystitis 11/01/2016 05/20/2017 [...] of this encounter (statuses as of 02/06/2023) [facility] of Past illness Narrative* Problem Noted Date Diagnosed Date Resolved Date OA (osteoarthritis) of knee 06/04/2017 06/05/2017 Chronic pain of right knee 05/20/2017 0 07/04/2017 Primary osteoarthritis of left knee 05/10/2017 06/05/2017 Overview: Added automatically from request for surgery [id number] Abdominal pain 11/01/2016 05/20/2017 Cystitis 11/01/2016 05/20/2017 [...] of this encounter (statuses as of 02/14/2023) [place] [id number] History of Past illness Narrative* Problem Noted Date Diagnosed Date Resolved Date OA (osteoarthritis) of knee 06/04/2017 06/05/2017 Chronic pain of right knee 05/20/2017 0 07/04/2017 Primary osteoarthritis of left knee 05/10/2017 06/05/2017 Overview: Added automatically from request for surgery [id number] Abdominal pain 11/01/2016 05/20/2017 Cystitis 11/01/2016 05/20/2017 [...] of this encounter (statuses as of 02/15/2023) [facility] History of Past illness Narrative* Problem Noted Date Diagnosed Date Resolved Date OA (osteoarthritis) of knee 06/04/2017 06/05/2017 Chronic pain of right knee 05/20/2017 0 07/04/2017 Primary osteoarthritis of left knee 05/10/2017 06/05/2017 Overview: Added automatically from request for surgery [id number] Abdominal pain 11/01/2016 05/20/2017 Cystitis 11/01/2016 05/20/2017 [...] of this encounter (statuses as of 04/18/2023) [facility] History of Past illness Narrative* Problem Noted Date Diagnosed Date Resolved Date OA (osteoarthritis) of knee 06/04/2017 06/05/2017 Chronic pain of right knee 05/20/2017 0 07/04/2017 Primary osteoarthritis of left knee 05/10/2017 06/05/2017 Overview: Added automatically from request for surgery [id number] Abdominal pain 11/01/2016 05/20/2017 Cystitis 11/01/2016 05/20/2017 [...] of this encounter (statuses as of 05/06/2023) [facility] History of Past illness Narrative* Problem Noted Date Diagnosed Date Resolved Date OA (osteoarthritis) of knee 06/04/2017 06/05/2017 Chronic pain of right knee 05/20/2017 0 07/04/2017 Primary osteoarthritis of left knee 05/10/2017 06/05/2017 Overview: Added automatically from request for surgery [id number] Abdominal pain 11/01/2016 05/20/2017 Cystitis 11/01/2016 05/20/2017 [...] of this encounter (statuses as of 05/08/2023) [facility] History of Past illness Narrative* Problem Noted Date Diagnosed Date Resolved Date OA (osteoarthritis) of knee 06/04/2017 06/05/2017 Chronic pain of right knee 05/20/2017 0 07/04/2017 Primary osteoarthritis of left knee 05/10/2017 06/05/2017 Overview: Added automatically from request for surgery [id number] Abdominal pain 11/01/2016 05/20/2017 Cystitis 11/01/2016 05/20/2017 [...] of this encounter (statuses as of 05/09/2023) [facility] History of Past illness Narrative* Problem Noted Date Diagnosed Date Resolved Date OA (osteoarthritis) of knee 06/04/2017 06/05/2017 Chronic pain of right knee 05/20/2017 0 07/04/2017 Primary osteoarthritis of left knee 05/10/2017 06/05/2017 Overview: Added automatically from request for surgery [id number] Abdominal pain 11/01/2016 05/20/2017 Cystitis 11/01/2016 05/20/2017 [...] of this encounter (statuses as of 05/15/2023) [facility] History of Past illness Narrative* Problem Noted Date Diagnosed Date Resolved Date OA (osteoarthritis) of knee 06/04/2017 06/05/2017 Chronic pain of right knee 05/20/2017 0 07/04/2017 Primary osteoarthritis of left knee 05/10/2017 06/05/2017 Overview: Added automatically from request for surgery [id number] Abdominal pain 11/01/2016 05/20/2017 Cystitis 11/01/2016 05/20/2017 [...] of this encounter (statuses as of 05/23/2023) [facility] History of Past illness Narrative* Problem Noted Date Diagnosed Date Resolved Date OA (osteoarthritis) of knee 06/04/2017 06/05/2017 Chronic pain of right knee 05/20/2017 0 07/04/2017 Primary osteoarthritis of left knee 05/10/2017 06/05/2017 Overview: Added automatically from request for surgery [id number] Abdominal pain 11/01/2016 05/20/2017 Cystitis 11/01/2016 05/20/2017 [...] of this encounter (statuses as of 05/24/2023) [facility] History of Past illness Narrative* Problem Noted Date Diagnosed Date Resolved Date OA (osteoarthritis) of knee 06/04/2017 06/05/2017 Chronic pain of right knee 05/20/2017 0 07/04/2017 Primary osteoarthritis of left knee 05/10/2017 06/05/2017 Overview: Added automatically from request for surgery [id number] Abdominal pain 11/01/2016 05/20/2017 Cystitis 11/01/2016 05/20/2017 [...] of this encounter (statuses as of 06/04/2023) [facility] History of Past illness Narrative* Problem Noted Date Diagnosed Date Resolved Date OA (osteoarthritis) of knee 06/04/2017 06/05/2017 Chronic pain of right knee 05/20/2017 0 07/04/2017 Primary osteoarthritis of left knee 05/10/2017 06/05/2017 Overview: Added automatically from request for surgery [id number] Abdominal pain 11/01/2016 05/20/2017 Cystitis 11/01/2016 05/20/2017 [...] of this encounter (statuses as of 06/08/2023) [facility] History of Past illness Narrative* Problem Noted Date Diagnosed Date Resolved Date OA (osteoarthritis) of knee 06/04/2017 06/05/2017 Chronic pain of right knee 05/20/2017 0 07/04/2017 Primary osteoarthritis of left knee 05/10/2017 06/05/2017 Overview: Added automatically from request for surgery [id number] Abdominal pain 11/01/2016 05/20/2017 Cystitis 11/01/2016 05/20/2017 [...] of this encounter (statuses as of 06/13/2023) [facility] Jerome Brasher [facility] Note Date/Time August 14, 2024 3:41 pm [facility] Medical Records Department [address] [place] [address] Discharge Summary 08/14/24 1534 MR#: [id number] Acct: [id number] Name: ANAYA DE LA O Rep #:[id number] : 1940 84 From: Jerome Brasher DO PCP: Dr. Edenilson Nicholson DO Status:EDOUARD Morrow CHRISTINE Location: [place] [address] Providers Date of Admission: 08/13/24 Primary Care Physician: Dr. Edenilson Nicholson DO Consultations 08/13/24 22:09 Consult: Tele-Neurology Routine Consulting Provider: [facility] Reason for Consult: Acute Ischemic Stroke/TIA EMERGENT Consult: No MD Notified: Yes Date Notified: 08/13/24 Time Notified: 22:17 Method of Notification: Answering Service Nursing Unit Staff Notify [facility] of Tele-Neurology Consult: Yes Reason For Visit: LEFT FACE AND ARM PARASTHESIAS Diagnosis Discharge Diagnosis (1) TIA (transient ischemic attack): Status: Acute Code(s): G45.9 - Transient cerebral ischemic attack, unspecified Plan: This is an 84-year-old female presents with left hand and face numbness and tingling. Symptoms did resolve. She underwent a stroke workup. MRI of the brain negative. Echo negative. [facility] recommending aspirin 81 mg daily. No need for dual antiplatelet therapy at this time. Atorvastatin 40 mg daily. Also recommending a 30-day cardiac event monitor to evaluate for A-fib/flutter. Patient follow-up with PCP in 1 to 2 weeks and neurology in 4 to 6weeks. Medications at Discharge Home Medications ascorbic acid (vitamin C) 500 mg tablet (Vitamin C) 500 mg PO DAILY@0800 SUPPLEMENT 09/07/16 cholecalciferol (vitamin D3) 125 mcg (5,000 unit) capsule 5,000 unit PO DAILY BONE HEALTH 09/07/16 coenzyme Q10 100 mg capsule (Co Q-10) 100 mg PO DAILY SUPPLEMENT 09/07/16 folic acid 1 mg tablet 2 mg PO DAILY SUPPLEMENT 09/07/16 glutamine 500 mg capsule (L-Glutamine) 500 mg PO DAILY SUPPLEMENT 09/07/16 lutein 20 mg capsule 20 mg PO DAILY SUPPLEMENT 09/07/16 methotrexate sodium 2.5 mg tablet 12.5 mg PO LORD ARHTRITIS 09/07/16 red yeast rice 600 mg capsule 600 mg PO BID SUPPLEMENT 09/07/16 cyclobenzaprine 10 mg tablet 10 mg PO TID PRN PRN Back pain/muscle spasms #10 tabs 09/11/16 amitriptyline 10 mg tablet 10 mg PO QHS mood 08/13/24 donepezil 10 mg tablet 10 mg PO QHS memory 08/13/24 fluorometholone 0.1 % eye drops,suspension 1 drp ophthalmic (eye) QODAY 08/13/24 fluoxetine 10 mg capsule 10 mg PO DAILY depression 08/13/24 losartan 25 mg tablet 25 mg PO DAILY blood pressure 08/13/24 aspirin 81 mg tablet 81 mg PO DAILY #30 tabs 08/14/24 atorvastatin 40 mg tablet 40 mg PO QHS #30 tabs 08/14/24 Hospital Course Procedures 2-D Echocardiogram Summary of Care Provided Minutes Spent on Discharge: 32 Physical Exam Const alert and no apparent distress Constitutional Narrative: Seen have an echocardiogram. No facial droop. Moves all extremity spontaneously. General Appearance: cooperative and comfortable Weight / BMI Weight Weight: 52.1 kg Body Mass Index (BMI) 21.7 ABG / Lab / Microbiology Data 08/14/24 04:45 08/14/24 04:45 Laboratory: Laboratory Results - last 24 hr 08/13/24 18:49: WBC 6.4, RBC 4.26, Hgb 13.0, Hct 40.3, MCV 94.6, MCH 30.5, MCHC 32.3, RDW Std Deviation 48.3 H, RDW Coeff of Kate 14.3, Plt Count 200, MPV 10.7, Immature Gran % (Auto) 0.300, Neut % (Auto) 69.4, Lymph % (Auto) 21.3, [place] % (Auto) 7.1, Eos % (Auto) 1.3, Baso % (Auto) 0.6, Absolute Neuts (auto) 4.4, Absolute Lymphs (auto) 1.35, Nucleated RBC % 0, Sodium 138, Potassium 4.1, Chloride 101, Carbon Dioxide 26.3, Anion Gap 11, BUN 5, Creatinine 0.62 L, EstimCreat Clear Calc 39.50 L, Est GFR (MDRD) Non-Af 88, BUN/Creatinine Ratio 8.1 L, Glucose 99, Hemoglobin A1c 5.7, Calcium 9.5 08/13/24 20:01: POC Glucose 88 08/14/24 04:45: WBC 6.2, RBC 4.17 L, Hgb 12.8, Hct 38.7, MCV 92.8, MCH 30.7, MCHC 33.1, RDW Std Deviation 47.1 H, RDW Coeff of Kate 14.0, Plt Count 200, MPV 10.7, Immature Gran % (Auto) 0.300, Neut % (Auto) 63.9, Lymph % (Auto) 24.7, [place] % (Auto) 8.7, Eos % (Auto) 1.9, Baso % (Auto) 0.5, Absolute Neuts (auto) 4.0, Absolute Lymphs (auto) 1.54, Nucleated RBC % 0, Sodium 140, Potassium 3.8, Chloride 104, Carbon Dioxide 23.5, Anion Gap 12, BUN 5, Creatinine 0.56 L, EstimCreat Clear Calc 39.50 L, Est GFR (MDRD) Non-Af 90, BUN/Creatinine Ratio 8.2 L, Glucose 106 H, Calcium 9.4, Phosphorus 3.0, Magnesium 2.2, Total Bilirubin 0.64,AST 26, ALT 17, Alkaline Phosphatase 123 H, Total Protein 6.2, Albumin 3.9, Globulin 2.3, Albumin/Globulin Ratio 1.7, Triglycerides 70, Cholesterol 217 H, LDL Cholesterol, Calc 126, VLDL Cholesterol 14, HDL Cholesterol 77, Cholesterol/HDL Ratio 2.83, TSH 1.720 Radiography Diagnostic Testing: Radiology Impression Brain CT 08/13/24 18:34 IMPRESSION: No acute intracranial finding. Reading Location: [id number] Head/Neck CTA 08/13/24 18:34 IMPRESSION: 1. No large vessel occlusion, aneurysm or AVM. 2. 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 3. Severe cervical spondylosis. Reading Location: [facility] Echocardiogram 08/13/24 21:27 Interpretation Summary The LV ejection fraction is 65 %. Left ventricular systolic function is normal. Mild (1+) aortic valve insufficiency. Grade 1 diastolic dysfunction Trivial mitral valve insufficiency. Ordering Physician: Ramona Darden Referring Physician: Edenilson Nicholson Performed By: Sharon Selby, DARLINE, RVT Brain MRI 08/14/24 21:27 IMPRESSION: 1. Mild cerebral atrophy. 2. No evidence of acute intracranial pathology. Reading Location: [place] [address] D/C Instructions Discharge Diet: Low fat / Low cholesterol DC O2, CPAP, BIPAP Needs Home O2 Discharge instructions: No Meaningful Use Info Meaningful Use Meaningful Use Diagnoses (Choose all that apply): Ischemic CVA CVA Therapy Assessed for PT,OT and/or ST?: Yes Ischemic Stroke Antithrombotic order at d/c?: Yes Dx of Atrial fib/flutter?: No Anticoagulant at discharge?: No Reason anticoagulant not ordered: Treatment not Indicated Statin Dosing Therapy Reference: STATIN DOSE THERAPY REFERENCE: * Patients > 75 years receive moderate or high dose statin therapy. * Patients 75 years or YOUNGER should receive HIGH intensity statin dose unless contraindicated. You will be required to document reason for non-treatment if statin daily dose does not meet guidelines. HIGH DOSE STATIN THERAPY DAILY Atorvastatin > than or = to 40 mg Rosuvastatin > than or = to 20 mg Amlodipine + Atorvastatin > than or = to 2.5/40 mg Ezetimibe + Simvastatin 10/80 mg Simvastatin 80mg Statins at discharge?: Yes Primary Dx Acute Ischemic CVA?: Yes IV thrombolytic ordered during stay?: No Reason IV thrombolytic not ordered: Treatment not Indicated Discharge Plan Admission Admit Date/Time: 08/13/24 21:21 Primary Reason for Your Visit: TIA Attending Provider: Jerome Brasher Primary Care Provider: Edenilson Nicholson Consulting Providers: Pop Toro; Maira Neely; Yuliet Messer; Elissa Pyle; Sharri Marroquin; Anthony Kent; Leti Yarbrough; Aric Martinez; Isai Chanel; Maury Garnica; Carol Porras; Margaret Us; Nathaly Alberto; Navya Shane; Lucia Welsh; Willy Goldsmith; Allegar Mg; Abdifatah Chen; Libby Darden; Rahul Quiñonez;Ramona Darden Instructions Patient Instructions: What Is a TIA? Additional Instructions / Restrictions: You had symptoms concerning for a TIA (transient ischemic attack). Neurology isrecommending aspirin as well as cholesterol medication and an event monitor. Please follow-up with your primary care doctor in 1 to 2 weeks and neurology in 4 to 6 weeks as you are able. Discharge Orders/Prescriptions Prescriptions: New atorvastatin 40 mg Tablet 40 mg PO QHS Qty: 30 0RF aspirin 81 mg tablet 81 mg PO DAILY Qty: 30 0RF Rx Instructions: [id number]. No prescription required Continued L-Glutamine 500 MG capsule 500 mg PO DAILY ascorbic acid (vitamin C) [Vitamin C] 500 MG tablet 500 mg PO DAILY@0800 cholecalciferol (vitamin D3) 5,000 UNIT capsule 5,000 unit PO DAILY coenzyme Q10 [Co Q-10] 100 MG capsule 100 mg PO DAILY lutein 20 MG capsule 20 mg PO DAILY red yeast rice 600 MG capsule 600 mg PO BID methotrexate sodium 2.5 MG tablet 12.5 mg PO LORD Patient Comments: on sundays. folic acid 1 MG tablet 2 mg PO DAILY cyclobenzaprine 10 MG tablet 10 mg PO TID PRN PRN (Reason: Back pain/muscle spasms) Qty: 10 0RF donepezil 10 mg tablet 10 mg PO QHS amitriptyline 10 mg tablet 10 mg PO QHS fluorometholone 0.1 % drops,suspension 1 drp ophthalmic (eye) QODAY losartan 25 mg tablet 25 mg PO DAILY fluoxetine 10 mg capsule 10 mg PO DAILY Other Ambulatory Orders: 30 Day Event Recorder Preventi (Urgent) Timeframe: 1 Day Facility: [facility] - Location: Cardiovascular Services Ordered By: Dr. Jerome Brasher Referrals / Follow Up: Edenilson Nicholson DO [Primary Care Provider] - Charges/Coding Visit Charges Inpatient E&M: 24553 Disch Hosp >30min 08/14/24 1541 <Electronically signed by Jerome Brasher DO> Cosigner Signature (if applicable): CC: Dr. Jerome Brasher DO; Dr. Edenilson Nicholson DO~ Signed [facility] Work Phone: Evaluation + Plan note No data available for this section [facility] Evaluation note* Diagnosis Muscle strain of chest wall, initial encounter- Primary [facility] [place] [facility]* Diagnosis Flank pain- Primary Abdominal pain, unspecified site [facility] [place] [facility]* Diagnosis Microscopic hematuria- Primary documented in this encounter [facility] noteNo assessment information [facility] Work Phone: Evaluation note* Diagnosis Pain in both knees, unspecified chronicity- Primary [facility] [place] [facility]* Diagnosis Neck pain- Primary Cervicalgia Hypertension, essential Unspecified essential hypertension IFG (impaired fasting glucose) Impaired fasting glucose Dyslipidemia Other and unspecified hyperlipidemia Inflammatory arthritis Unspecified inflammatory polyarthropathy Rib injury Sprain of ribs Osteoarthritis of spine with radiculopathy, cervical region DDD (degenerative disc disease), cervical Degeneration of cervical intervertebral disc [facility] Diagnosis Status post total left knee replacement- Primary Status post total right knee replacement Quadriceps weakness Muscle weakness (generalized) [facility]* Diagnosis Pain in both knees, unspecified chronicity [facility] [place] [facility]* Diagnosis Inflammatory arthritis Unspecified inflammatory polyarthropathy documented in this encounter [facility] note* Diagnosis Foot pain, left- Primary Pain in limb Erythema of foot Unspecified erythematous condition [facility] [place] [facility]* Diagnosis Foot pain, left- Primary Pain in limb Erythema of foot Unspecified erythematous condition Urinary frequency Sensation of fullness in left ear Other disorders of ear Psoriatic arthritis (HCC) Psoriatic arthropathy 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 Seasonal allergies Allergic rhinitis, cause unspecified Scalp lump Swelling, mass, or lump in head and neck documented [facility] this encounter [facility] [place] [facility]* Diagnosis Repetitive stress injury- Primary Unspecified site of sprain and strain Foot pain, left Pain in limb Erythema of foot Unspecified erythematous condition [facility] [place] [facility]* Diagnosis Repetitive stress injury Unspecified site of sprain and strain [facility] [place] [facility]* Diagnosis Injury of left hand, initial encounter- Primary [facility] [place] [facility]* Diagnosis Status post total left knee replacement- Primary Status post total right knee replacement [facility] [place] [facility]* Diagnosis Bee sting, accidental or unintentional, initial encounter [facility] [place] [facility]* Diagnosis Diarrhea, unspecified type- Primary Mild headache Headache documented [facility] [place] [facility]* Diagnosis Epigastric abdominal pain Abdominal pain, epigastric documented [facility] [place] [facility]* Diagnosis Prolapse of intestine- Primary Other specified disorder of intestines Pelvic floor dysfunction in female Urinary incontinence, unspecified type [facility] [place] [facility]* Diagnosis Prolapse of intestine- Primary Other specified disorder of intestines Rectocele Enterocele Hernia of unspecified site of abdominal cavity without mention of obstruction or gangrene Urinary tract infection without hematuria, site unspecified Rectal prolapse [facility] [place] [facility]* Diagnosis Status post total left knee replacement- Primary Status post total right knee replacement [facility] [place] [facility]* Diagnosis Status post total left knee replacement Status post total right knee replacement [facility] [place] [facility]* Diagnosis Urinary frequency- Primary documented [facility] [place] [facility]* Diagnosis Prolapse of intestine- Primary Other specified disorder of intestines Urinary incontinence, unspecified type Pelvic floor dysfunction in female documented [facility] [place] [facility]* Diagnosis Urinary frequency- Primary Pelvic floor dysfunction in female Prolapse of intestine Other specified disorder of intestines Neck pain Cervicalgia Osteoarthritis of spine with radiculopathy, cervical region documented [facility] this encounter [facility] [place] [facility]* Diagnosis Prolapse of intestine- Primary Other specified disorder of intestines Urinary incontinence, unspecified type Pelvic floor dysfunction in female documented [facility] [place] [facility]* Diagnosis Prolapse of intestine- Primary Other specified disorder of intestines Urinary incontinence, unspecified type Pelvic floor dysfunction in female documented [facility] [place] [facility]* Diagnosis Urinary frequency- Primary documented [facility] [place] [facility]* Diagnosis Prolapse of intestine- Primary Other specified disorder of intestines Pelvic floor dysfunction in female Urinary frequency documented [facility] [place] [facility]* Diagnosis Rectocele- Primary Urinary frequency Frequent UTI Urinary tract infection, site not specified documented [facility] [place] [facility]* Diagnosis Urinary frequency- Primary Viral URI Acute upper respiratory infections of unspecified site documented [facility] [place] [facility]* Diagnosis Rectocele Enterocele Hernia of unspecified site of abdominal cavity without mention of obstruction or gangrene Rectal prolapse documented [facility] [place] [facility]* Diagnosis Dental infection- Primary Acute apical periodontitis of pulpal origin [facility] [place] [facility]* Diagnosis Rectal prolapse- Primary Rectocele Enterocele Hernia of unspecified site of abdominal cavity without mention of obstruction or gangrene documented [facility] this [facility] [place] [facility]* Diagnosis Screening for colon cancer- Primary Special screening for malignant neoplasms, colon documented [facility] [place] [facility]* Diagnosis Urinary incontinence, urge- Primary Urge incontinence Preoperative examination Preoperative examination, unspecified documented [facility] [place] [facility]* Diagnosis Urinary frequency- Primary Prolapse of intestine Other specified disorder of intestines Pelvic floor dysfunction in female Hypertension, essential Unspecified essential hypertension Dyslipidemia Other and unspecified hyperlipidemia [facility] [place] [facility]* Diagnosis Urinary frequency- Primary Pain in both lower extremities [facility] [place] [facility]* Diagnosis Rectal prolapse- Primary documented [facility] [place] [facility]* Diagnosis Rectocele- Primary Other female genital prolapse Urinary frequency Vaginal vault prolapse Unspecified prolapse of vaginal huynh Cystocele, midline Urinary incontinence, urge Urge incontinence Overactive bladder Hypertonicity of bladder Rectal prolapse documented [facility] [place] [facility]* Diagnosis JOSHUA (generalized anxiety disorder)- Primary Generalized anxiety disorder Cough, persistent Cough Pain of right lower extremity Chronic obstructive pulmonary disease, unspecified COPD type (HCC) Psoriatic arthritis (HCC) Psoriatic arthropathy [facility] Hypertension, essential Unspecified essential hypertension [facility] note* Diagnosis Rash- Primary Rash and other nonspecific skin eruption Bug bite, [facility] encounter [facility] Nasal sore- Primary Other diseases of nasal cavity and sinuses JOSHUA (generalized anxiety disorder) Generalized anxiety disorder Cough, persistent Cough Short-term memory loss Memory loss Word finding difficulty Problems with communication (including speech) Rectal prolapse Chronic obstructive pulmonary disease, unspecified COPD type (HCC) Psoriatic arthritis (HCC) Psoriatic arthropathy [facility] Diagnosis Bee sting, accidental or unintentional, initial encounter [facility] Acute cough- Primary Bee sting, accidental or unintentional, initial encounter [facility] Diagnosis Viral bronchitis- Primary Acute bronchitis Chronic obstructive pulmonary disease, unspecified COPD type (HCC) [facility] [place] [facility] Diagnosis Urinary frequency- Primary [facility] [place] [facility]* Diagnosis Recurrent UTI (urinary tract infection)- Primary Urinary tract infection, site not specified Osteopenia, senile Disorder of bone and cartilage, unspecified Chronic cough Cough Rales Abnormal chest sounds Psoriatic arthritis (HCC) Psoriatic arthropathy Chronic obstructive pulmonary disease, unspecified COPD type (HCC) Rectal prolapse [facility]* Diagnosis Rectocele- Primary [facility] [place] [facility]* Diagnosis Vaginal vault prolapse- Primary Unspecified prolapse of vaginal huynh Rectocele Cystocele, midline Urinary incontinence, urge Urge incontinence Overactive bladder Hypertonicity of bladder Rectal prolapse Preoperative examination Preoperative examination, unspecified [facility] Diagnosis 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 Unspecified prolapse of vaginal huynh Rectocele Cystocele, midline Urinary incontinence, urge Urge incontinence Overactive bladder Hypertonicity of bladder Rectal prolapse Preoperative examination Preoperative examination, unspecified [facility] Diagnosis Chronic cough Cough Rales Abnormal chest sounds Vaginal vault prolapse Unspecified prolapse of vaginal huynh Rectocele Cystocele, midline Urinary incontinence, urge Urge incontinence Overactive bladder Hypertonicity of bladder Rectal prolapse Preoperative examination Preoperative examination, unspecified [facility] [place] [facility]* Diagnosis Osteopenia, senile Disorder of bone and cartilage, unspecified Vaginal vault prolapse Unspecified prolapse of vaginal huynh Rectocele Cystocele, midline Urinary incontinence, urge Urge incontinence Overactive bladder Hypertonicity of bladder Rectal prolapse Preoperative examination Preoperative examination, unspecified [facility] [place] [facility]* Diagnosis Encounter for screening for malignant neoplasm of colon- Primary Special screening for malignant neoplasms, colon Screening for colon cancer Special screening for malignant neoplasms, colon Vaginal vault prolapse Unspecified prolapse of vaginal huynh Rectocele Cystocele, midline Urinary incontinence, urge Urge incontinence Overactive bladder Hypertonicity of bladder Rectal prolapse Preoperative examination Preoperative examination, unspecified documented in this encounter [facility]* Diagnosis Short-term memory loss Memory loss Word finding difficulty Problems with communication (including speech) Vaginal vault prolapse Unspecified prolapse of vaginal huynh Rectocele Cystocele, midline Urinary incontinence, urge Urge incontinence Overactive bladder Hypertonicity of bladder Rectal prolapse Preoperative examination Preoperative examination, unspecified documented in this encounter [facility] note* Diagnosis Pain due to knee joint prosthesis, initial encounter (HCC)- Primary 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 Unspecified prolapse of vaginal huynh Rectocele Cystocele, midline Urinary incontinence, urge Urge incontinence Overactive bladder Hypertonicity of bladder Rectal prolapse Preoperative examination Preoperative examination, unspecified [facility] [place] [facility]* Diagnosis Pain due to knee joint prosthesis, subsequent encounter- Primary 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 Unspecified prolapse of vaginal huynh Rectocele Cystocele, midline Urinary incontinence, urge Urge incontinence Overactive bladder Hypertonicity of bladder Rectal prolapse Preoperative examination Preoperative examination, unspecified [facility] [place] [facility]* Diagnosis Pancreas cyst- Primary Cyst and pseudocyst of pancreas Cystic mass of pancreas Abnormal MRI of abdomen Nonspecific (abnormal) findings on radiological and other examination of abdominal area, including retroperitoneum Vaginal vault prolapse Unspecified prolapse of vaginal huynh Rectocele Cystocele, midline Urinary incontinence, urge Urge incontinence Overactive bladder Hypertonicity of bladder Rectal prolapse Preoperative examination Preoperative examination, unspecified documented [facility] [place] [facility]* Diagnosis Fall, subsequent encounter- Primary Urinary frequency Laceration of left eyebrow, subsequent encounter Vaginal vault prolapse Unspecified prolapse of vaginal huynh Rectocele Cystocele, midline Urinary incontinence, urge Urge incontinence Overactive bladder Hypertonicity of bladder Rectal prolapse Preoperative examination Preoperative examination, unspecified [facility] [place] [facility]* Diagnosis Visit for suture removal- Primary Encounter for removal of sutures Vaginal vault prolapse Unspecified prolapse of vaginal huynh Rectocele Cystocele, midline Urinary incontinence, urge Urge incontinence Overactive bladder Hypertonicity of bladder Rectal prolapse Preoperative examination Preoperative examination, unspecified [facility] this [facility] [place] [facility]* Diagnosis Rosacea Vaginal vault prolapse Unspecified prolapse of vaginal huynh Rectocele Cystocele, midline Urinary incontinence, urge Urge incontinence Overactive bladder Hypertonicity of bladder Rectal prolapse Preoperative examination Preoperative examination, unspecified documented [facility] this [facility] [place] [facility]* Diagnosis Hypertension, essential- Primary Unspecified essential hypertension JOSHUA (generalized anxiety disorder) Generalized anxiety disorder Dementia without behavioral disturbance (HCC) Dementia, unspecified, without behavioral disturbance Rectal prolapse Short-term memory loss Memory loss Rectal prolapse [facility] [place] [facility]* Diagnosis Elevated lipase- Primary Other nonspecific abnormal serum enzyme levels Bloating Flatulence, eructation, and gas pain Upper abdominal pain Abdominal pain, other specified site Nausea Nausea alone documented [facility] this [facility] [place] [facility]* Diagnosis Elevated lipase Other nonspecific abnormal serum enzyme levels Bloating Flatulence, eructation, and gas pain Upper abdominal pain Abdominal pain, other specified site Nausea Nausea alone documented [facility] this [facility] [place] [facility]* Diagnosis Pancreas cyst Cyst and pseudocyst of pancreas Cystic mass of pancreas Abnormal MRI of abdomen Nonspecific (abnormal) findings on radiological and other examination of abdominal area, including retroperitoneum documented in this [facility] [place] [facility]* Diagnosis Abdominal discomfort- Primary Abdominal pain, unspecified site Hypertension, essential Unspecified essential hypertension Dementia without behavioral disturbance (HCC) Dementia, unspecified, without behavioral disturbance Oral lesion Other and unspecified diseases of the oral soft tissues documented [facility] this [facility] [place] [facility]* Diagnosis Persistent cough- Primary Cough Acute cough Decreased lung sounds Abnormal chest sounds documented [facility] this [facility] [place] [facility]* Diagnosis UTI symptoms- Primary Other symptoms involving urinary system documented [facility] this [facility] [place] [facility]* Diagnosis JOSHUA (generalized anxiety disorder)- Primary Generalized anxiety disorder Stress Other psychological or physical stress, not elsewhere classified Abdominal discomfort Abdominal pain, unspecified site RUQ abdominal pain Abdominal pain, right upper quadrant [facility]* Diagnosis Dementia without behavioral disturbance (HCC)- Primary Dementia, unspecified, without behavioral disturbance JOSHUA (generalized anxiety disorder) Generalized anxiety disorder Abdominal discomfort Abdominal pain, unspecified site Hypertension, essential Unspecified essential hypertension [facility] [place] [facility]* Diagnosis Pre-op evaluation- Primary Preoperative examination, [...] without behavioral disturbance [facility] [place] [facility]* Diagnosis Pre-op evaluation- Primary Preoperative examination, [...] to COVID-19 virus documented [facility] this encounter [facility] [place] [facility]* Diagnosis Pre-op evaluation- Primary Preoperative examination, [...] Unspecified essential hypertension [facility] [place] [facility]* Diagnosis Pre-op evaluation- Primary Preoperative examination, [...] Abnormal chest sounds [facility] [place] [facility]* Diagnosis Pre-op evaluation- Primary Preoperative examination, [...] pseudocyst of pancreas documented [facility] [place] [facility]* Diagnosis Pre-op evaluation- Primary Preoperative examination, [...] pain, unspecified chronicity documented [facility] this [facility] [place] [facility]* Diagnosis Pre-op evaluation- Primary Preoperative examination, [...] replacement Acute cough [facility] this [facility] [place] [facility]* Diagnosis Pre-op evaluation- Primary Preoperative examination, [...] right ankle- Primary documented [facility] [place] [facility]* Diagnosis Pre-op evaluation- Primary Preoperative examination, [...] of right ankle documented [facility] this [facility] [place] [facility]* Diagnosis Pre-op evaluation- Primary Preoperative examination, [...] pain, unspecified site documented [facility] this [facility] [place] [facility]* Diagnosis Pre-op evaluation- Primary Preoperative examination, [...] Unspecified erythematous condition documented [facility] this [facility] [place] [facility]* Diagnosis Pre-op evaluation- Primary Preoperative examination, [...] joint, multiple sites documented [facility] this [facility] [place] [facility]* Diagnosis Pre-op evaluation- Primary Preoperative examination, [...] Post-COVID chronic cough documented [facility] this [facility] [place] [facility]* Diagnosis Pre-op evaluation- Primary Preoperative examination, [...] Psoriasis Other psoriasis documented [facility] [place] [facility]* Diagnosis Pre-op evaluation- Primary Preoperative examination, [...] Dry cough Cough documented [facility] this [facility] [place] [facility]* Diagnosis Pre-op evaluation- Primary Preoperative examination, [...] and subcutaneous tissue [facility] [place] [facility]* Diagnosis Pre-op evaluation- Primary Preoperative examination, [...] unintentional, initial encounter [facility] [place] [facility]* Diagnosis Pre-op evaluation- Primary Preoperative examination, [...] nonspecific skin eruption documented [facility] [place] [facility]* Diagnosis Pre-op evaluation- Primary Preoperative examination, [...] unintentional, initial encounter [facility] [place] [facility]* Diagnosis Pre-op evaluation- Primary Preoperative examination, [...] heel, subsequent encounter documented [facility] this [facility] [place] [facility]* Diagnosis Pre-op evaluation- Primary Preoperative examination, [...] pain, unspecified site [facility] Diagnosis Pre-op evaluation- Primary Preoperative [...] oral soft tissues [facility] Diagnosis Pre-op evaluation- Primary Preoperative [...] Generalized anxiety disorder [facility] Diagnosis Pre-op evaluation- Primary Preoperative [...] without behavioral disturbance [facility] Diagnosis Pre-op evaluation- Primary Preoperative [...] pain without sciatica [facility] [place] [facility]* Diagnosis Pre-op evaluation- Primary Preoperative examination, [...] cough- Primary Cough documented in this encounter [facility]* Diagnosis Pre-op evaluation- Primary Preoperative [...] Primary Acute cough [facility] [place] [facility]* Diagnosis Pre-op evaluation- Primary Preoperative examination, [...] Urinary frequency- Primary documented [facility] [place] [facility]* Diagnosis Pre-op evaluation- Primary Preoperative examination, [...] pain without sciatica documented in this encounter [facility]* Diagnosis Pre-op evaluation- Primary Preoperative [...] Unspecified essential hypertension documented [facility] [place] [facility]* Diagnosis Pre-op evaluation- Primary Preoperative examination, [...] syndrome, initial encounter documented [facility] [place] [facility]* Diagnosis Pre-op evaluation- Primary Preoperative examination, [...] thoracolumbar intervertebral disc documented [facility] this [facility] [place] [facility]* Diagnosis Pre-op evaluation- Primary Preoperative examination, [...] (HCC) Psoriatic arthropathy [facility] [place] [facility]* Diagnosis Pre-op evaluation- Primary Preoperative examination, [...] initial encounter- Primary documented [facility] [place] [facility]* Diagnosis Pre-op evaluation- Primary Preoperative examination, [...] neurogenic claudication present [facility] [place] [facility]* Diagnosis Pre-op evaluation- Primary Preoperative examination, [...] lower extremity pain [facility] [place] [facility]* Diagnosis Pre-op evaluation- Primary Preoperative examination, [...] initial encounter- Primary documented [facility] [place] [facility]* Diagnosis Pre-op evaluation- Primary Preoperative examination, [...] Urinary frequency- Primary [facility] [place] [facility]* Diagnosis Pre-op evaluation- Primary Preoperative examination, [...] mood Status post total right knee replacement TIA (transient ischemic attack)- Primary Unspecified transient cerebral ischemia Paresthesia Disturbance of skin sensation Hypertension, essential Unspecified essential hypertension Hyperlipidemia, mixed Mixed hyperlipidemia USP (current) use of aspirin documented [facility] this [facility] [place] [facility]* Diagnosis Pre-op evaluation- Primary Preoperative examination, [...] total right knee replacement JOSHUA (generalized anxiety disorder) Generalized anxiety disorder documented [facility] [place] [facility]* Diagnosis Pre-op evaluation- Primary Preoperative examination, [...] mood Status post total right knee replacement Paresthesia- Primary Disturbance of skin sensation TIA (transient ischemic attack) Unspecified transient cerebral ischemia Radiculopathy, cervical region Brachial neuritis or radiculitis nos documented [facility] this [facility] [place] [facility]* Diagnosis Pre-op evaluation- Primary Preoperative examination, [...] mood Status post total right knee replacement Radiculopathy, cervical region- Primary Brachial neuritis or radiculitis nos documented [facility] this [facility] [place] [facility]* Diagnosis Pre-op evaluation- Primary Preoperative examination, [...] mood Status post total right knee replacement Pain- Primary Generalized pain [facility] [place] [facility]* Diagnosis Pre-op evaluation- Primary Preoperative examination, [...] without behavioral disturbance [facility] [place] [facility]* Diagnosis Pre-op evaluation- Primary Preoperative examination, [...] mood Status post total right knee replacement Arm bruise, left, sequela- Primary Chronic left-sided low back pain without sciatica Degeneration of intervertebral disc of lumbar region, unspecified whether pain present DDD (degenerative disc disease), thoracic Degeneration of thoracic or thoracolumbar intervertebral disc Muscle spasm Spasm of muscle Dementia without behavioral disturbance (HCC) Dementia, unspecified, without behavioral disturbance Muscle spasm of back Other symptoms referable to back Spinal stenosis of lumbar region, unspecified whether neurogenic claudication present documented in this encounter [facility] note* Diagnosis Pre-op evaluation- Primary Preoperative [...] total right knee replacement Acute cough- Primary Acute bronchitis, unspecified organism Contusion of left upper extremity, initial encounter Acute cough documented in this encounter [facility] note* Diagnosis Pre-op evaluation- Primary Preoperative [...] replacement Acute cough documented in this encounter [facility] for referral (narrative)* Diagnostic Procedure Only (Routine) - Closed Specialty Diagnoses / Procedures Referred By Clary abraham Referred To Contact XR IMAGING Diagnoses Flank pain Procedures XR THORACIC LIMITED 2V AP/LAT RADEX SPINE THORACIC 2 VIEWS Charissa Jauregui, IS ARCHITECT [address] [place] [address] Xr Imaging Referral ID Status Reason Start Date Expiration Date V isits Requested Visits Authorized [id number] Closed Auto-Generate d Referral 06/09/2021 07/09/2022 1 1 * Diagnostic Procedure Only (Routine) - Closed Specialty Diagnoses / Procedures Referred By Contac t Referred To Contact XR IMAGING Diagnoses Flank pain Procedures XR RIBS/CHEST 3V AP RIB/OBLS/CXR LEFT RADEX RIBS UNI W/POSTEROANT CH MINIMUM 3 VIEWS Charissa Jauregui, ENGINE HEAD REPAIRER.IS ARCHITECT [address] [place] [address] Xr Imaging Referral ID Status Reason Start Date Expiration Date V isits Requested Visits Authorized [id number] Closed Auto-Generate d Referral 06/09/2021 07/09/2022 [address] [facility] for referral (narrative)* Diagnostic Procedure Only (Routine) - Pending Review Specialty Diagnoses / Procedures Referred By Contac t Referred To Contact XR IMAGING Diagnoses Pain in both knees, unspecified chronicity Procedures XR KNEE POST OP 3V AP/LAT/MERCHANT BILATERAL RADIOLOGIC EXAMINATION KNEE 3 VIEWS Glenna Bhandari PA-C [address] [place] [address] Xr Imaging Referral ID Status Reason Start Date Expiration Date Visits Requested Visits Authorized [id number] Pending Review Auto-Generat ed Referral 06/23/2021 07/23/2022 [address] [facility] for referral (narrative)* Diagnostic Procedure Only (Routine) - Closed Specialty Diagnoses / Procedures Referred By Contac t Referred To Contact XR IMAGING Diagnoses Pain in both knees, unspecified chronicity Procedures XR KNEE POST OP 3V AP/LAT/MERCHANT BILATERAL RADIOLOGIC EXAMINATION KNEE 3 VIEWS Glenna Bhandari PA-C [address] [place] [address] Xr Imaging Referral ID Status Reason Start Date Expiration Date V isits Requested Visits Authorized [id number] Closed Auto-Generate d Referral 06/23/2021 07/23/2022 [address] [facility] for referral (narrative)* Diagnostic Procedure Only (Routine) - Closed Specialty Diagnoses / Procedures Referred By Contac t Referred To Contact XR IMAGING Diagnoses Foot pain, left Erythema of foot Procedures XR FOOT GENERAL 3V AP/LAT/OBL LEFT RADEX FOOT COMPLETE MINIMUM 3 VIEWS Angeline Ray APRN.CNP [address] [place] [address] Xr Imaging Referral ID Status Reason Start Date Expiration Date V isits Requested Visits Authorized [id number] Closed Auto-Generate d Referral 07/20/2021 08/19/2022 [address] [facility] for referral (narrative)* Diagnostic Procedure Only (Routine) - Closed Specialty Diagnoses / Procedures Referred By Contac t Referred To Contact XR IMAGING Diagnoses Repetitive stress injury Procedures XR FOOT GENERAL 3V AP/LAT/OBL LEFT RADEX FOOT COMPLETE MINIMUM 3 VIEWS Margaret Crane [address] [place] [address] Xr Imaging Referral ID Status Reason Start Date Expiration Date V isits Requested Visits Authorized [id number] Closed Auto-Generate d Referral 08/02/2021 09/01/2022 [address] [facility] for referral (narrative)* Diagnostic Procedure Only (Routine) - Closed Specialty Diagnoses / Procedures Referred By Contac t Referred To Contact XR IMAGING Diagnoses Repetitive stress injury Procedures XR FOOT GENERAL 3V AP/LAT/OBL LEFT RADEX FOOT COMPLETE MINIMUM 3 VIEWS Margaret Crane [address] [place] [id number] Xr Imaging Referral ID Status Reason Start Date Expiration Date V isits Requested Visits Authorized [id number] Closed Auto-Generate d Referral 08/02/2021 09/01/2022 [address] [facility] for referral (narrative)* Diagnostic Procedure Only (Routine) - Closed Specialty Diagnoses / Procedures Referred By Contac t Referred To Contact XR IMAGING Diagnoses Status post total left knee replacement Status post total right knee replacement Procedures XR KNEE POST OP 3V AP/LAT/MERCHANT BILATERAL RADIOLOGIC EXAMINATION KNEE 3 VIEWS Michael Del Castillo PA-C [address] [place] [address] Xr Imaging Referral ID Status Reason Start Date Expiration Date V isits Requested Visits Authorized [id number] Closed Auto-Generate d Referral 12/22/2021 01/21/2023 1 1 [facility] for referral (narrative)* Diagnostic Procedure Only (Routine) - Closed Specialty Diagnoses / Procedures Referred By Contac t Referred To Contact XR IMAGING Diagnoses Status post total left knee replacement Status post total right knee replacement Procedures XR KNEE POST OP 3V AP/LAT/MERCHANT BILATERAL RADIOLOGIC EXAMINATION KNEE 3 VIEWS Michael Del Castillo PA-C [address] [place] [address] Xr Imaging Referral ID Status Reason Start Date Expiration Date V isits Requested Visits Authorized [id number] Closed Auto-Generate d Referral 12/22/2021 01/21/2023 1 1 [facility] for referral (narrative)* Diagnostic Procedure Only (Routine) - Closed Specialty Diagnoses / Procedures Referred By Contac t Referred To Contact XR IMAGING Diagnoses Rectocele Enterocele Rectal prolapse Procedures XR DEFECOGRAPHY RADIOLOGIC EXAM COLON SINGLE CONTRAST STUDY Yi Gonsalves, IS ARCHITECT [address] [place] [address] Xr Imaging Referral ID Status Reason Start Date Expiration Date V isits Requested Visits Authorized [id number] Closed Auto-Generate d Referral 12/06/2021 01/05/2023 1 1 [facility] for referral (narrative)* Outpatient Procedure (Routine) - Authorized Specialty Diagnoses / Procedures Referred By Contac t Referred To Contact [facility] Diagnoses Screening for colon cancer Procedures COLONOSCOPY SCREENING COLONOSCOPY FLX DX W/COLLJ SPEC WHEN PFRMD Mellisa Villalobos DO [address] [place] [address] [place] [phone] Referral ID Status Reason Start Date Expiration Date Visits Requested Visits Authorized [id number] Authorized Auto-Generat ed Referral 04/16/2022 04/16/2023 [address] [facility] for referral (narrative)* Outpatient Procedure (Routine) - Pending Review Specialty Diagnoses / Procedures Referred By Contac t Referred To Contact [facility] Diagnoses Urinary incontinence, urge Preoperative examination Procedures URODYNAMICS [facility] COMPLX CYSTOMETRO W/VOID PRESS&URETHRAL PROFILE Nel Zayas MD [address] [place] [phone] [place] [phone] Referral ID Status Reason Start Date Expiration Date Visits Requested Visits Authorized [id number] Pending Review Auto-Generat ed Referral 04/17/2022 04/17/2023 1 1 [facility] for referral (narrative)* Diagnostic Procedure Only (Routine) - Authorized Specialty Diagnoses / Procedures Referred By Contac t Referred To Contact CT IMAGING Diagnoses Chronic cough Rales Procedures CT CHEST WO IVCON DIAGNOSTIC COMPUTED TOMOGRAPHY THORAX W/O CNTRST Edenilson Nicholson DO [address] [place] [address] Ct Imaging [facility] Referral ID Status Reason Start Date Expiration Date V isits Requested Visits Authorized [id number] Authorized 11/14/2022 12/29/2022 [address] [facility] for referral (narrative)* Outpatient Procedure (Routine) - Pending Review Specialty Diagnoses / Procedures Referred By Contac t Referred To Contact [facility] Diagnoses Vaginal vault prolapse Rectocele Cystocele, midline Urinary incontinence, urge Overactive bladder Rectal prolapse Preoperative examination Procedures URODYNAMICS [facility] COMPLX CYSTOMETRO W/VOID PRESS&URETHRAL PROFILE Nel Zayas MD [address] [place] [phone] [facility] [address] [place], [place] [phone] Referral ID Status Reason Start Date Expiration Date Visits Requested Visits Authorized [id number] Pending Review Auto-Generat ed Referral 11/26/2022 11/26/2023 [address] [facility] for referral (narrative)* Diagnostic Procedure Only (Routine) - Closed Specialty Diagnoses / Procedures Referred By Contac t Referred To Contact CT IMAGING Diagnoses Chronic cough Rales Procedures CT CHEST WO IVCON DIAGNOSTIC COMPUTED TOMOGRAPHY THORAX W/O CNTRST Edenilson Nicholson DO [address] [place] [address] Ct Imaging [facility] Referral ID Status Reason Start Date Expiration Date Visits Re quested Visits Authorized [id number] Closed 11/14/2022 12/29/2022 [address] [facility] for referral (narrative)* Outpatient Procedure (Routine) - Closed Specialty Diagnoses / Procedures Referred By Contac t Referred To Contact [facility] Diagnoses Screening for colon cancer Procedures COLONOSCOPY SCREENING COLONOSCOPY FLX DX W/COLLJ SPEC WHEN PFRMD Mellisa Villalobos DO [address] [place] [address] [facility] [place] [address] [place], [place] [id number] Referral ID Status Reason Start Date Expiration Date V isits Requested Visits Authorized [id number] Closed Auto-Generate d Referral 04/16/2022 04/16/2023 1 1 [facility] for referral (narrative)* Diagnostic Procedure Only (Urgent) - Closed Specialty Diagnoses / Procedures Referred By Contac t Referred To Contact US IMAGING Diagnoses Elevated lipase Bloating Upper abdominal pain Nausea Procedures US ABD RIGHT UPPER QUADRANT US ABDOMINAL REAL TIME W/IMAGE LIMITED Angeline Ray APRN.IS ARCHITECT [address] [place] [address] [place] [address] Referral ID Status Reason Start Date Expiration Date V isits Requested Visits Authorized [id number] Closed Auto-Generate d Referral 05/08/2023 06/06/2024 [address] [facility] for referral (narrative)* Diagnostic Procedure Only (Urgent) - Closed Specialty Diagnoses / Procedures [facility] Referred To Contact [facility] Diagnoses Elevated lipase Bloating Upper abdominal pain Nausea Procedures US ABD RIGHT UPPER QUADRANT US ABDOMINAL REAL TIME W/IMAGE LIMITED Angeline Ray APRN.IS ARCHITECT [address] [place] [address] Us Imaging [facility] Referral ID Status Reason Start Date Expiration Date V isits Requested Visits Authorized [id number] Closed Auto-Generate d Referral 05/08/2023 06/06/2024 [address] [facility] for referral (narrative)* Outpatient Procedure (Routine) - New Request Specialty Diagnoses / Procedures [facility] Referred To Contact [facility] Diagnoses Pancreatic cyst Procedures EGD - THERAPEUTIC, EUS, OR TUBE INTERVENTIONS EGD INTRMURAL US NEEDLE ASPIRATE/[place] [address] [place] [address] [facility] [place] [address] [address] Referral ID Status Reason Start Date Expiration Date Visits Requested Visits Authorized [id number] New Request Auto-Generat ed Referral 11/13/2023 11/12/2024 [address] [facility] for referral (narrative)* Diagnostic Procedure Only (Routine) - Closed Specialty Diagnoses / Procedures Referred By Contac t Referred To Contact XR IMAGING Diagnoses Left knee pain, unspecified chronicity Procedures XR KNEE POST OP 3V AP/LAT/MERCHANT LEFT RADIOLOGIC EXAMINATION KNEE 3 VIEWS Michael Del Castillo PA-C [address] [place] [address] [place] [address] Referral ID Status Reason Start Date Expiration Date V isits Requested Visits Authorized [id number] Closed Auto-Generate d Referral 01/10/2023 02/09/2024 [address] [facility] for referral (narrative)* Diagnostic Procedure Only (Routine) - Closed Specialty Diagnoses / Procedures Referred By Contac t Referred To Contact XR IMAGING Diagnoses Pain in lateral portion of right ankle Procedures XR ANKLE GENERAL 3V AP/LAT/OBL RIGHT RADEX ANKLE COMPLETE MINIMUM 3 VIEWS Kinga Carter ENGINE HEAD REPAIRER.IS ARCHITECT [address] [place] [address] [place] [address] Referral ID Status Reason Start Date Expiration Date V isits Requested Visits Authorized [id number] Closed Auto-Generate d Referral 11/25/2023 12/24/2024 [address] [facility] for referral (narrative)* Diagnostic Procedure Only (Routine) - Closed Specialty Diagnoses / Procedures Referred By Contac t Referred To Contact XR IMAGING Diagnoses Flank pain Procedures XR THORACIC LIMITED 2V AP/LAT RADEX SPINE THORACIC 2 VIEWS Charisas Jauregui APRN.IS ARCHITECT [address] [place] [address] [place] [address] Referral ID Status Reason Start Date Expiration Date V isits Requested Visits Authorized [id number] Closed Auto-Generate d Referral 06/09/2021 07/09/2022 1 1 * Diagnostic Procedure Only (Routine) - Closed Specialty Diagnoses / Procedures Referred By Contac t Referred To Contact XR IMAGING Diagnoses Flank pain Procedures XR RIBS/CHEST 3V AP RIB/OBLS/CXR LEFT RADEX RIBS UNI W/POSTEROANT CH MINIMUM 3 VIEWS Charissa Jauregui ENGINE HEAD REPAIRER.IS ARCHITECT [address] [place] [address] [place] [address] Referral ID Status Reason Start Date Expiration Date V isits Requested Visits Authorized [id number] Closed Auto-Generate d Referral 06/09/2021 07/09/2022 [address] [facility] for referral (narrative)* Diagnostic Procedure Only (Routine) - Closed Specialty Diagnoses / Procedures Referred By Contac t Referred To Contact XR IMAGING Diagnoses Foot pain, left Erythema of foot Procedures XR FOOT GENERAL 3V AP/LAT/OBL LEFT RADEX FOOT COMPLETE MINIMUM 3 VIEWS Angeline Ray APRN.IS ARCHITECT [address] [place] [address] [place] [address] Referral ID Status Reason Start Date Expiration Date V isits Requested Visits Authorized [id number] Closed Auto-Generate d Referral 07/20/2021 08/19/2022 [address] [facility] for referral (narrative)* Diagnostic Procedure Only (Routine) - Closed Specialty Diagnoses / Procedures Referred By Contac t Referred To Contact XR IMAGING Diagnoses Inflammatory arthritis Pain in joint, multiple sites Procedures XR HAND GENERAL 3V PA/LAT/OBL BILATERAL RADEX HAND MINIMUM [address] [place] [address] [place] [address] [place] [address] Referral ID Status Reason Start Date Expiration Date V isits Requested Visits Authorized [id number] Closed Auto-Generate d Referral 05/02/2021 06/01/2022 1 1 [facility] for referral (narrative)* Diagnostic Procedure Only (Routine) - Closed Specialty Diagnoses / Procedures Referred By Contac t Referred To Contact XR IMAGING Diagnoses Injury of left hip, initial encounter Hip pain Procedures XR HIP GENERAL 3V PELV/AP/LAT LEFT RADEX HIP UNILATERAL WITH PELVIS 2-3 VIEWS Angeline Ray APRN.CNP [address] [place] [address] [place] [address] Referral ID Status Reason Start Date Expiration Date V isits Requested Visits Authorized [id number] Closed Auto-Generate d Referral 04/10/2021 05/10/2022 [address] [facility] for referral (narrative)No reason for referral information [facility] Phone: Reason for visit Narrative* Diagnostic Procedure Only (Routine) - Closed Specialty Diagnoses / Procedures Referred By Contac t Referred To Contact XR IMAGING Diagnoses Pain in both knees, unspecified chronicity Procedures XR KNEE POST OP 3V AP/LAT/MERCHANT BILATERAL RADIOLOGIC EXAMINATION KNEE 3 VIEWS Glenna Bhandari PA-C [address] [place] [address] Xr Imaging Referral ID Status Reason Start Date Expiration Date V isits Requested Visits Authorized [id number] Closed Auto-Generate d Referral 06/23/2021 07/23/2022 [address] [facility] for visit Narrative* Diagnostic Procedure Only (Routine) - Closed Specialty Diagnoses / Procedures Referred By Contac t Referred To Contact XR IMAGING Diagnoses Repetitive stress injury Procedures XR FOOT GENERAL 3V AP/LAT/OBL LEFT RADEX FOOT COMPLETE MINIMUM 3 VIEWS Margaret Crane [address] [place] [address] Xr Imaging Referral ID Status Reason Start Date Expiration Date V isits Requested Visits Authorized [id number] Closed Auto-Generate d Referral 08/02/2021 09/01/2022 [address] [facility] for visit Narrative* Diagnostic Procedure Only (Routine) - Closed Specialty Diagnoses / Procedures Referred By Contac t Referred To Contact XR IMAGING Diagnoses Status post total left knee replacement Status post total right knee replacement Procedures XR KNEE POST OP 3V AP/LAT/MERCHANT BILATERAL RADIOLOGIC EXAMINATION KNEE 3 VIEWS Michael Del Castillo PA-C [address] [place] [address] Xr Imaging Referral ID Status Reason Start Date Expiration Date V isits Requested Visits Authorized [id number] Closed Auto-Generate d Referral 12/22/2021 01/21/2023 [address] [facility] for visit Narrative* Outpatient Procedure (Routine) - Closed Specialty Diagnoses / Procedures Referred By Contac t Referred To Contact [facility] Diagnoses Screening for colon cancer Procedures COLONOSCOPY SCREENING COLONOSCOPY FLX DX W/COLLJ SPEC WHEN PFRMD Mellisa Villalobos DO [address] [place] [address] [facility] [place] [address] [place] [address] Referral ID Status Reason Start Date Expiration Date V isits Requested Visits Authorized [id number] Closed Auto-Generate d Referral 04/16/2022 04/16/2023 [address] [facility] for visit Narrative* Diagnostic Procedure Only (Urgent) - Closed Specialty Diagnoses / Procedures Referred By Contac t Referred To Contact US IMAGING Diagnoses Elevated lipase Bloating Upper abdominal pain Nausea Procedures US ABD RIGHT UPPER QUADRANT US ABDOMINAL REAL TIME W/IMAGE LIMITED Angeline Ray, ENGINE HEAD REPAIRER.IS ARCHITECT [address] [place] [address] Us Imaging [facility] Referral ID Status Reason Start Date Expiration Date V isits Requested Visits Authorized [id number] Closed Auto-Generate d Referral 05/08/2023 06/06/2024 [address] [facility] for visit Narrative* Diagnostic Procedure Only (Routine) - Closed Specialty Diagnoses / Procedures Referred By Contac t Referred To Contact XR IMAGING Diagnoses Left knee pain, unspecified chronicity Procedures XR KNEE POST OP 3V AP/LAT/MERCHANT LEFT RADIOLOGIC EXAMINATION KNEE 3 VIEWS Michael Del Castillo PA-C [address] [place] [address] [place] [address] Referral ID Status Reason Start Date Expiration Date V isits Requested Visits Authorized [id number] Closed Auto-Generate d Referral 01/10/2023 02/09/2024 [address] [facility] for visit Narrative* Diagnostic Procedure Only (Routine) - Closed Specialty Diagnoses / Procedures Referred By Contac t Referred To Contact XR IMAGING Diagnoses Pain in lateral portion of right ankle Procedures XR ANKLE GENERAL 3V AP/LAT/OBL RIGHT RADEX ANKLE COMPLETE MINIMUM 3 VIEWS Kinga Carter, ENGINE HEAD REPAIRER.IS ARCHITECT [address] [place] [id number] [place] [address] Referral ID Status Reason Start Date Expiration Date V isits Requested Visits Authorized [id number] Closed Auto-Generate d Referral 11/25/2023 12/24/2024 [address] [facility] for visit Narrative* Diagnostic Procedure Only (Routine) - Closed Specialty Diagnoses / Procedures Referred By Contac t Referred To Contact XR IMAGING Diagnoses Flank pain Procedures XR THORACIC LIMITED 2V AP/LAT RADEX SPINE THORACIC 2 VIEWS Charissa Jauregui, ENGINE HEAD REPAIRER.IS ARCHITECT [address] [place] [phone] [place] [address] Referral ID Status Reason Start Date Expiration Date V isits Requested Visits Authorized [id number] Closed Auto-Generate d Referral 06/09/2021 07/09/2022 [address] [facility] for visit Narrative* Diagnostic Procedure Only (Routine) - Closed Specialty Diagnoses / Procedures Referred By Contac t Referred To Contact XR IMAGING Diagnoses Foot pain, left Erythema of foot Procedures XR FOOT GENERAL 3V AP/LAT/OBL LEFT RADEX FOOT COMPLETE MINIMUM 3 VIEWS Angeline Ray, ENGINE HEAD REPAIRER.IS ARCHITECT [address] [place] [address] [place] [address] Referral ID Status Reason Start Date Expiration Date V isits Requested Visits Authorized [id number] Closed Auto-Generate d Referral 07/20/2021 08/19/2022 [address] [facility] for visit Narrative* Diagnostic Procedure Only (Routine) - Closed Specialty Diagnoses / Procedures Referred By Contac t Referred To Contact XR IMAGING Diagnoses Injury of left hip, initial encounter Hip pain Procedures XR HIP GENERAL 3V PELV/AP/LAT LEFT RADEX HIP UNILATERAL WITH PELVIS 2-3 VIEWS Angeline Ray, ENGINE HEAD REPAIRER.IS ARCHITECT [address] [place] [address] [place] [address] Referral ID Status Reason Start Date Expiration Date V isits Requested Visits Authorized [id number] Closed Auto-Generate d Referral 04/10/2021 05/10/2022 [address] [facility] for visit Narrative* Diagnostic Procedure Only (Routine) - Authorized Specialty Diagnoses / Procedures Referred By Clary t Referred To Contact Radiology / RADIO MRI [facility] Diagnoses Pancreatic cyst Pancreatic Cyst Procedures MRI ABDOMEN W/O & W/CONTRAST MATERIAL MRI WWO ABD 300 Juan Mendez MD [address] [place] [address] Phone: tel: fax: Radiology [address] [place] [address] Phone: tel: fax: Referral ID Status Reason Start Date Expiration Date V isits Requested Visits Authorized [id number] Authorized 04/20/2024 03/03/2025 [address] [facility] for visit Narrative* Diagnostic Procedure Only (Routine) - Closed Specialty Diagnoses / Procedures Referred By Clary t Referred To Contact XR IMAGING Diagnoses Chronic left-sided low back pain without sciatica Procedures XR THORACIC GENERAL 3V AP/LAT/SWIMMERS RADEX SPINE THORACIC 3 VIEWS Angeline Ray, PARMJIT.IS ARCHITECT [address] [place] [address] Phone: tel: fax: [place] [address] Referral ID Status Reason Start Date Expiration Date V isits Requested Visits Authorized [id number] Closed Auto-Generate d Referral 06/02/2024 07/02/2025 [address] [facility] for visit Narrative* Diagnostic Procedure Only (Urgent) - Closed Specialty Diagnoses / Procedures Referred By Clary t Referred To Contact XR IMAGING Diagnoses Sprain of ligament of right ankle, initial encounter Procedures XR ANKLE GENERAL 3V AP/LAT/OBL RIGHT RADEX ANKLE COMPLETE MINIMUM 3 VIEWS Lani Arndt PA-C [address] [facility] [address] [place] [address] Phone: tel: fax: [place] [address] Referral ID Status Reason Start Date Expiration Date V isits Requested Visits Authorized [id number] Closed Auto-Generate d Referral 06/30/2024 07/30/2025 1 [facility]/CT (Routine) - Closed Specialty Diagnoses / Procedures Referred By Contac t Referred To Contact MR IMAGING Diagnoses Spinal stenosis of lumbar region, unspecified whether neurogenic claudication present Procedures MRI LUMBAR SPINE WO IVCON MRI SPINAL CANAL LUMBAR W/O CONTRAST MATERIAL Mary Keith, ENGINE HEAD REPAIRER.IS ARCHITECT [address] [place] [address] Phone: tel: fax: [place] [address] Referral ID Status Reason Start Date Expiration Date V isits Requested Visits Authorized [id number] Closed Auto-Generate d Referral 07/23/2024 08/22/2025 1 1 [facility] Advance Directives No Advanced Directives Records FoundDocuments on File Type Date 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 Directive(s) 05/10/2022 8:51 AM Date Activated Date Inactivated Comments 03/30/2020 2:47 PM 03/31/2020 11:31 PM Latest Code Status on File Code Status Date Activated Date Inactivated Comments Full Code 03/30/2020 2:47 PM 03/31/2020 11:31 PM Documents on File Type Date 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 Directive(s) 12/18/2020 8:29 PM [...] Documents on File 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 Date 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 Directive(s) 12/18/2020 8:29 PM [...] September 07, 2016 4 :20pm Power of Yarn Spooler Yes September 07, 2016 4:20pm Advance Directive Response Recorded Date/ Time Living Will Yes September 07, 2016 3 :20pm Power of Yarn Spooler Yes September 07, 2016 3:20pm Documents on File Type Date 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 Yes August 13, 2024 6:11pm Name of Medical Power of Yarn Spooler LOLIS Hyman August 13, 2024 6:11pm Advance Directive Response Recorded Date/ Time Do you have a Healthcare Power of Yarn Spooler? Yes August 13, 2024 10:23pm Name of Medical Power of Yarn Spooler LOLIS Hyman August 13, 2024 6:11pm Advance Directive Response Recorded Date/ Time Do you have a Healthcare Pow er of Yarn Spooler? No November 04, 2024 4:32pm Do you have a Healthcare Pow er of Yarn Spooler? Yes August 13, 2024 10:23pm Name of Medical Power of Yarn Spooler LOLIS Hyman August 13, 2024 6:11pm Chief Complaint and Reason for Visit Chief Complaint THROAT PAIN NECK PN/RX HERE Chief Complaint STANDING ORDER Chief Complaint STANDING ORDER STANDING ORDER Chief Complaint STANDING ORDER S/O- PAIN- COPY PCP Chief Complaint S/O- PAIN- COPY PCP STANDING ORDER Chief Complaint Admit Date S/O- PAIN- COPY PCP June 26, 2024 9:5 0am LEFT FACE AND ARM PARASTHESIAS August 9:21pm Chief Complaint Admit Date S/O- PAIN- COPY PCP June 26, 2024 9:5 0am LEFT FACE AND ARM PARASTHESIAS August 9:21pm LEFT FACE AND ARM PARASTHESIAS August 10:06pm LEFT FACE AND ARM PARASTHESIAS August 3:34pm Reason for Visit Admit Date TIA (transient ischemic attack) August 9:21pm Chief Complaint Admit Date S/O- PAIN- COPY PCP June 26, 2024 9:5 0am LEFT FACE AND ARM PARASTHESIAS August 9:21pm LEFT FACE AND ARM PARASTHESIAS August 10:06pm LEFT FACE AND ARM PARASTHESIAS August 3:34pm TIA August 24, 2024 1:14 pm S/O- PAIN- COPY PCP September 14, 2024 10:2 5am Chief Complaint Admit Date LEFT FACE AND ARM PARASTHESIAS August 9:21pm LEFT FACE AND ARM PARASTHESIAS August 10:06pm LEFT FACE AND ARM PARASTHESIAS August 3:34pm TIA August 24, 2024 1:14 pm S/O- PAIN- COPY PCP September 14, 2024 10:2 5am left flank pain November 04, 2024 4:19pm Family History No Family History Records Found [...] History?Heart Disease Unknown September 07, 2016 4:04pm Relationship Condition Age at Onset Recorded Date/T john father Malignant neoplasm Unknown Reason for Referral Specialty Diagnoses / Procedures Referred By Contac t Referred To Contact Podiatry Diagnoses Foot pain, left Erythema of foot Procedures CONSULT TO PODIATRY OFFICE/OUTPATIENT [facility] 60-74 MINUTES Kandi Contreras, PARMJIT.IS ARCHITECT [address] [place] [address] Referral ID Status Reason Start Date Expiration Date Visits Requested Visits Authorized [id number] Pending Review PCP Requested Referral 07/21/2021 07/21/2022 1 1 Specialty Diagnoses / Procedures Referred By Contac t Referred To Contact [facility] Diagnoses Pelvic floor dysfunction in female Prolapse of intestine Urinary incontinence, unspecified type Procedures CONSULT TO PHYSICAL THERAPY PHYSICAL THERAPY EVALUATION HIGH COMPLEX 45 MINS Edenilson Nicholson, DO [address] [place] [address] [facility] [place] [address] [place] [address] Referral ID Status Reason Start Date Expiration Date Visits Requested Visits Authorized [id number] Pending Review Auto-Generat ed Referral 12/05/2021 12/05/2022 1 1 Specialty Diagnoses / Procedures Referred By Contac t Referred To Contact [facility] Rectal Surgery Diagnoses Rectal prolapse Procedures CONSULT TO COLO-RECTAL SURGERY OFFICE/OUTPATIENT [facility] 60-74 MINUTES Yi Gonsalves, IS ARCHITECT [address] [place] [address] Referral ID Status Reason Start Date Expiration Date Visits Requested Visits Authorized [id number] Pending Review PCP Requested Referral 12/06/2021 12/06/2022 1 1 Specialty Diagnoses / Procedures Referred By Contac t Referred To Contact XR IMAGING Diagnoses Rectocele Enterocele Rectal prolapse Procedures XR DEFECOGRAPHY RADIOLOGIC EXAM COLON SINGLE CONTRAST STUDY Yi Gonsalves APRN.IS ARCHITECT [address] [place] [address] Xr Imaging Referral ID Status Reason Start Date Expiration Date Visits Requested Visits Authorized [id number] Authorized Auto-Generat ed Referral 12/06/2021 01/05/2023 1 1 Specialty Diagnoses / Procedures Referred By Contac t Referred To Contact [facility] Diagnoses Rectocele Enterocele Rectal prolapse Procedures [facility] ANORECTAL MANOMETRY ANORECTAL MANOMETRY Yi Gonsalves, PARMJIT.IS ARCHITECT [address] [place] [address] [facility] [place] [address] [place] [address] Referral ID Status Reason Start Date Expiration Date Visits Requested Visits Authorized [id number] Pending Review Auto-Generat ed Referral 12/06/2021 12/06/2022 1 1 Specialty Diagnoses / Procedures Referred By Contac t Referred To Contact Urology Diagnoses Urinary frequency Procedures CONSULT TO UROLOGY OFFICE/OUTPATIENT NEW HIGH MDM 60-74 MINUTES Johnie Aguirre, ENGINE HEAD REPAIRER.IS ARCHITECT [address] [place] [address] Referral ID Status Reason Start Date Expiration Date Visits Requested Visits Authorized [id number] Pending Review PCP Requested Referral 2 02/10/2023 1 1 Specialty Diagnoses / Procedures Referred By Contac t Referred To Contact CT IMAGING Diagnoses Short-term memory loss Word finding difficulty Procedures CT BRAIN WO IVCON CT HEAD/BRAIN W/O CONTRAST MATERIAL Edenilson Nicholson L, DO [address] [place] [address] Ct Imaging Referral ID Status Reason Start Date Expiration Date Visits Requested Visits Authorized [id number] Authorized Auto-Generat ed Referral 08/01/2022 08/31/2023 1 1 Specialty Diagnoses / Procedures Referred By Contac t Referred To Contact MR IMAGING Diagnoses Cystic mass of pancreas Procedures MRI 3D POST PROCESSING 3D RENDERING W/INTERP&POSTPROC DIFF WORK STATION Edenilson Nicholson, DO [address] [place] [address] [place] [address] Referral ID Status Reason Start Date Expiration Date V isits Requested Visits Authorized [id number] Closed Auto-Generate d Referral 11/28/2022 12/28/2023 1 1 Specialty Diagnoses / Procedures Referred By Contac t Referred To Contact MR IMAGING Diagnoses Cystic mass of pancreas Procedures MRI PANC/ARETHA WO/W IVCON MRI ABDOMEN W/O & W/CONTRAST MATERIAL Edenilson Nicholson, DO [address] [place] [address] [place] [address] Referral ID Status Reason Start Date Expiration Date V isits Requested Visits Authorized [id number] Closed Auto-Generate d Referral 11/28/2022 12/28/2023 1 1 Specialty Diagnoses / Procedures Referred By Contac t Referred To Contact CT IMAGING Diagnoses Short-term memory loss Word finding difficulty Procedures CT BRAIN WO IVCON CT HEAD/BRAIN W/O CONTRAST MATERIAL Edenilson Nicholson, DO [address] [place] [address] [place] [address] Referral ID Status Reason Start Date Expiration Date V isits Requested Visits Authorized [id number] Closed Auto-Generate d Referral 08/01/2022 08/31/2023 1 1 Specialty Diagnoses / Procedures Referred By Contac t Referred To Contact MR IMAGING Diagnoses Pancreas cyst Cystic mass of pancreas Abnormal MRI of abdomen Procedures MRI 3D POST PROCESSING 3D RENDERING W/INTERP&POSTPROC DIFF WORK STATION Edenilson Nicohlson, DO [address] [place] [address] [place] [address] Referral ID Status Reason Start Date Expiration Date Visits Requested Visits Authorized [id number] Pending Review Auto-Generat ed Referral 02/15/2024 1 1 Specialty Diagnoses / Procedures Referred By Contac t Referred To Contact MR IMAGING Diagnoses Pancreas cyst Cystic mass of pancreas Abnormal MRI of abdomen Procedures MRI PANC/ARETHA WO/W IVCON MRI ABDOMEN W/O & W/CONTRAST MATERIAL Edenilson Nicholson DO [address] [place] [address] [place] [address] Referral ID Status Reason Start Date Expiration Date Visits Requested Visits Authorized [id number] Pending Review Auto-Generat ed Referral 07/17/2023 02/15/2024 1 1 Specialty Diagnoses / Procedures Referred By Contac t Referred To Contact Diagnoses Acute left-sided low back pain without sciatica Angeline Ray APRN.IS ARCHITECT [address] [place] [address] Referral ID Status Reason Start Date Expiration Date V isits Requested Visits Authorized [id number] Authorized 02/24/2024 03/25/2025 1 1 Specialty Diagnoses / Procedures Referred By Contac t Referred To Contact [facility] Diagnoses Acute left-sided low back pain without sciatica Procedures CONSULT TO PHYSICAL THERAPY PHYSICAL THERAPY EVALUATION HIGH COMPLEX 45 MINS Angeline Ray, PARMJIT.IS ARCHITECT [address] [place] [address] [facility] [place] [address] [place] [address] Referral ID Status Reason Start Date Expiration Date Visits Requested Visits Authorized [id number] Authorized Auto-Generat ed Referral 03/04/2024 03/03/2025 99 [...] USE ONLY, ONCE, 1 dose, Starting on Sat01/14/23 at 1612, Until Sat01/14/23 at 1612 Given [...] or prosecute any alcohol or drug abuse patient.[facility]In the event this information is protected by the Federal Confidentiality of Alcohol and Drug Abuse Patient Records regulations: The Federal rules restrict any use of the information to criminally investigate or prosecute any alcohol or drug abuse patient.[facility] HospitalIn the event this information is protected by the Federal Confidentiality of Alcohol and Drug Abuse Patient Records regulations: The Federal rules restrict any use of the information to criminally investigate or prosecute any alcohol or drug abuse patient.[facility] HospitalIn the event this information is protected by the Federal Confidentiality of Alcohol and Drug Abuse Patient Records regulations: The Federal rules restrict any use of the information to criminally investigate or prosecute any alcohol or drug abuse patient.[facility] HospitalIn the event this information is protected by the Federal Confidentiality of Alcohol and Drug Abuse Patient Records regulations: The Federal rules restrict any use of the information to criminally investigate or prosecute any alcohol or drug abuse patient.[facility] HospitalIn the event this information is protected by the Federal Confidentiality of Alcohol and Drug Abuse Patient Records regulations: The Federal rules restrict any use of the information to criminally investigate or prosecute any alcohol or drug abuse patient.[facility] HospitalIn the event this information is protected by the Federal Confidentiality of Alcohol and Drug Abuse Patient Records regulations: The Federal rules restrict any use of the information to criminally investigate or prosecute any alcohol or drug abuse patient.[facility] HospitalIn the event this information is protected by the Federal Confidentiality of Alcohol and Drug Abuse Patient Records regulations: The Federal rules restrict any use of the information to criminally investigate or prosecute any alcohol or drug abuse patient.[facility] HospitalIn the event this information is protected by the Federal Confidentiality of Alcohol and Drug Abuse Patient Records regulations: The Federal rules restrict any use of the information to criminally investigate or prosecute any alcohol or drug abuse patient.[facility] HospitalIn the event this information is protected by the Federal Confidentiality of Alcohol and Drug Abuse Patient Records regulations: The Federal rules restrict any use of the information to criminally investigate or prosecute any alcohol or drug abuse patient.[facility] HospitalIn the event this information is protected by the Federal Confidentiality of Alcohol and Drug Abuse Patient Records regulations: The Federal rules restrict any use of the information to criminally investigate or prosecute any alcohol or drug abuse patient.[facility] HospitalIn the event this information is protected by the Federal Confidentiality of Alcohol and Drug Abuse Patient Records regulations: The Federal rules restrict any use of the information to criminally investigate or prosecute any alcohol or drug abuse patient.[facility] HospitalIn the event this information is protected by the Federal Confidentiality of Alcohol and Drug Abuse Patient Records regulations: The Federal rules restrict any use of the information to criminally investigate or prosecute any alcohol or drug abuse patient.[facility] HospitalIn the event this information is protected by the Federal Confidentiality of Alcohol and Drug Abuse Patient Records regulations: The Federal rules restrict any use of the information to criminally investigate or prosecute any alcohol or drug abuse patient.[facility] HospitalIn the event this information is protected by the Federal Confidentiality of Alcohol and Drug Abuse Patient Records regulations: The Federal rules restrict any use of the information to criminally investigate or prosecute any alcohol or drug abuse patient.[facility] HospitalIn the event this information is protected by the Federal Confidentiality of Alcohol and Drug Abuse Patient Records regulations: The Federal rules restrict any use of the information to criminally investigate or prosecute any alcohol or drug abuse patient.[facility] HospitalIn the event this information is protected by the Federal Confidentiality of Alcohol and Drug Abuse Patient Records regulations: The Federal rules restrict any use of the information to criminally investigate or prosecute any alcohol or drug abuse patient.[facility] HospitalIn the event this information is protected by the Federal Confidentiality of Alcohol and Drug Abuse Patient Records regulations: The Federal rules restrict any use of the information to criminally investigate or prosecute any alcohol or drug abuse patient.[facility] HospitalIn the event this information is protected by the Federal Confidentiality of Alcohol and Drug Abuse Patient Records regulations: The Federal rules restrict any use of the information to criminally investigate or prosecute any alcohol or drug abuse patient.[facility] HospitalIn the event this information is protected by the Federal Confidentiality of Alcohol and Drug Abuse Patient Records regulations: The Federal rules restrict any use of the information to criminally investigate or prosecute any alcohol or drug abuse patient.[facility] HospitalIn the event this information is protected by the Federal Confidentiality of Alcohol and Drug Abuse Patient Records regulations: The Federal rules restrict any use of the information to criminally investigate or prosecute any alcohol or drug abuse patient.[facility] HospitalIn the event this information is protected by the Federal Confidentiality of Alcohol and Drug Abuse Patient Records regulations: The Federal rules restrict any use of the information to criminally investigate or prosecute any alcohol or drug abuse patient.[facility] HospitalIn the event this information is protected by the Federal Confidentiality of Alcohol and Drug Abuse Patient Records regulations: The Federal rules restrict any use of the information to criminally investigate or prosecute any alcohol or drug abuse patient.[facility] HospitalIn the event this information is protected by the Federal Confidentiality of Alcohol and Drug Abuse Patient Records regulations: The Federal rules restrict any use of the information to criminally investigate or prosecute any alcohol or drug abuse patient.[facility] HospitalIn the event this information is protected by the Federal Confidentiality of Alcohol and Drug Abuse Patient Records regulations: The Federal rules restrict any use of the information to criminally investigate or prosecute any alcohol or drug abuse patient.[facility] HospitalIn the event this information is protected by the Federal Confidentiality of Alcohol and Drug Abuse Patient Records regulations: The Federal rules restrict any use of the information to criminally investigate or prosecute any alcohol or drug abuse patient.[facility] HospitalIn the event this information is protected by the Federal Confidentiality of Alcohol and Drug Abuse Patient Records regulations: The Federal rules restrict any use of the information to criminally investigate or prosecute any alcohol or drug abuse patient.[facility] HospitalIn the event this information is protected by the Federal Confidentiality of Alcohol and Drug Abuse Patient Records regulations: The Federal rules restrict any use of the information to criminally investigate or prosecute any alcohol or drug abuse patient.[facility] HospitalIn the event this information is protected by the Federal Confidentiality of Alcohol and Drug Abuse Patient Records regulations: The Federal rules restrict any use of the information to criminally investigate or prosecute any alcohol or drug abuse patient.[facility] HospitalIn the event this information is protected by the Federal Confidentiality of Alcohol and Drug Abuse Patient Records regulations: The Federal rules restrict any use of the information to criminally investigate or prosecute any alcohol or drug abuse patient.[facility] HospitalIn the event this information is protected by the Federal Confidentiality of Alcohol and Drug Abuse Patient Records regulations: The Federal rules restrict any use of the information to criminally investigate or prosecute any alcohol or drug abuse patient.[facility] HospitalIn the event this information is protected by the Federal Confidentiality of Alcohol and Drug Abuse Patient Records regulations: The Federal rules restrict any use of the information to criminally investigate or prosecute any alcohol or drug abuse patient.[facility] HospitalIn the event this information is protected by the Federal Confidentiality of Alcohol and Drug Abuse Patient Records regulations: The Federal rules restrict any use of the information to criminally investigate or prosecute any alcohol or drug abuse patient.[facility] HospitalIn the event this information is protected by the Federal Confidentiality of Alcohol and Drug Abuse Patient Records regulations: The Federal rules restrict any use of the information to criminally investigate or prosecute any alcohol or drug abuse patient.[facility] HospitalIn the event this information is protected by the Federal Confidentiality of Alcohol and Drug Abuse Patient Records regulations: The Federal rules restrict any use of the information to criminally investigate or prosecute any alcohol or drug abuse patient.[facility] HospitalIn the event this information is protected by the Federal Confidentiality of Alcohol and Drug Abuse Patient Records regulations: The Federal rules restrict any use of the information to criminally investigate or prosecute any alcohol or drug abuse patient.[facility] HospitalIn the event this information is protected by the Federal Confidentiality of Alcohol and Drug Abuse Patient Records regulations: The Federal rules restrict any use of the information to criminally investigate or prosecute any alcohol or drug abuse patient.[facility] HospitalIn the event this information is protected by the Federal Confidentiality of Alcohol and Drug Abuse Patient Records regulations: The Federal rules restrict any use of the information to criminally investigate or prosecute any alcohol or drug abuse patient.[facility] HospitalIn the event this information is protected by the Federal Confidentiality of Alcohol and Drug Abuse Patient Records regulations: The Federal rules restrict any use of the information to criminally investigate or prosecute any alcohol or drug abuse patient.[facility] HospitalIn the event this information is protected by the Federal Confidentiality of Alcohol and Drug Abuse Patient Records regulations: The Federal rules restrict any use of the information to criminally investigate or prosecute any alcohol or drug abuse patient.[facility] HospitalIn the event this information is protected by the Federal Confidentiality of Alcohol and Drug Abuse Patient Records regulations: The Federal rules restrict any use of the information to criminally investigate or prosecute any alcohol or drug abuse patient.[facility] HospitalIn the event this information is protected by the Federal Confidentiality of Alcohol and Drug Abuse Patient Records regulations: The Federal rules restrict any use of the information to criminally investigate or prosecute any alcohol or drug abuse patient.[facility] HospitalIn the event this information is protected by the Federal Confidentiality of Alcohol and Drug Abuse Patient Records regulations: The Federal rules restrict any use of the information to criminally investigate or prosecute any alcohol or drug abuse patient.[facility] HospitalIn the event this information is protected by the Federal Confidentiality of Alcohol and Drug Abuse Patient Records regulations: The Federal rules restrict any use of the information to criminally investigate or prosecute any alcohol or drug abuse patient.[facility]In the event this information is protected by the Federal Confidentiality of Alcohol and Drug Abuse Patient Records regulations: The Federal rules restrict any use of the information to criminally investigate or prosecute any alcohol or drug abuse patient.[facility] HospitalIn the event this information is protected by the Federal Confidentiality of Alcohol and Drug Abuse Patient Records regulations: The Federal rules restrict any use of the information to criminally investigate or prosecute any alcohol or drug abuse patient.[facility] HospitalIn the event this information is protected by the Federal Confidentiality of Alcohol and Drug Abuse Patient Records regulations: The Federal rules restrict any use of the information to criminally investigate or prosecute any alcohol or drug abuse patient.[facility] HospitalIn the event this information is protected by the Federal Confidentiality of Alcohol and Drug Abuse Patient Records regulations: The Federal rules restrict any use of the information to criminally investigate or prosecute any alcohol or drug abuse patient.[facility] HospitalIn the event this information is protected by the Federal Confidentiality of Alcohol and Drug Abuse Patient Records regulations: The Federal rules restrict any use of the information to criminally investigate or prosecute any alcohol or drug abuse patient.[facility] HospitalIn the event this information is protected by the Federal Confidentiality of Alcohol and Drug Abuse Patient Records regulations: The Federal rules restrict any use of the information to criminally investigate or prosecute any alcohol or drug abuse patient.[facility] HospitalIn the event this information is protected by the Federal Confidentiality of Alcohol and Drug Abuse Patient Records regulations: The Federal rules restrict any use of the information to criminally investigate or prosecute any alcohol or drug abuse patient.[facility] HospitalIn the event this information is protected by the Federal Confidentiality of Alcohol and Drug Abuse Patient Records regulations: The Federal rules restrict any use of the information to criminally investigate or prosecute any alcohol or drug abuse patient.[facility] HospitalIn the event this information is protected by the Federal Confidentiality of Alcohol and Drug Abuse Patient Records regulations: The Federal rules restrict any use of the information to criminally investigate or prosecute any alcohol or drug abuse patient.[facility] HospitalIn the event this information is protected by the Federal Confidentiality of Alcohol and Drug Abuse Patient Records regulations: The Federal rules restrict any use of the information to criminally investigate or prosecute any alcohol or drug abuse patient.[facility] HospitalIn the event this information is protected by the Federal Confidentiality of Alcohol and Drug Abuse Patient Records regulations: The Federal rules restrict any use of the information to criminally investigate or prosecute any alcohol or drug abuse patient.[facility] HospitalIn the event this information is protected by the Federal Confidentiality of Alcohol and Drug Abuse Patient Records regulations: The Federal rules restrict any use of the information to criminally investigate or prosecute any alcohol or drug abuse patient.[facility] HospitalIn the event this information is protected by the Federal Confidentiality of Alcohol and Drug Abuse Patient Records regulations: The Federal rules restrict any use of the information to criminally investigate or prosecute any alcohol or drug abuse patient.[facility] HospitalIn the event this information is protected by the Federal Confidentiality of Alcohol and Drug Abuse Patient Records regulations: The Federal rules restrict any use of the information to criminally investigate or prosecute any alcohol or drug abuse patient.[facility] HospitalIn the event this information is protected by the Federal Confidentiality of Alcohol and Drug Abuse Patient Records regulations: The Federal rules restrict any use of the information to criminally investigate or prosecute any alcohol or drug abuse patient.[facility] HospitalIn the event this information is protected by the Federal Confidentiality of Alcohol and Drug Abuse Patient Records regulations: The Federal rules restrict any use of the information to criminally investigate or prosecute any alcohol or drug abuse patient.[facility] HospitalIn the event this information is protected by the Federal Confidentiality of Alcohol and Drug Abuse Patient Records regulations: The Federal rules restrict any use of the information to criminally investigate or prosecute any alcohol or drug abuse patient.[facility] HospitalIn the event this information is protected by the Federal Confidentiality of Alcohol and Drug Abuse Patient Records regulations: The Federal rules restrict any use of the information to criminally investigate or prosecute any alcohol or drug abuse patient.[facility] HospitalIn the event this information is protected by the Federal Confidentiality of Alcohol and Drug Abuse Patient Records regulations: The Federal rules restrict any use of the information to criminally investigate or prosecute any alcohol or drug abuse patient.[facility] HospitalIn the event this information is protected by the Federal Confidentiality of Alcohol and Drug Abuse Patient Records regulations: The Federal rules restrict any use of the information to criminally investigate or prosecute any alcohol or drug abuse patient.[facility] HospitalIn the event this information is protected by the Federal Confidentiality of Alcohol and Drug Abuse Patient Records regulations: The Federal rules restrict any use of the information to criminally investigate or prosecute any alcohol or drug abuse patient.[facility] HospitalIn the event this information is protected by the Federal Confidentiality of Alcohol and Drug Abuse Patient Records regulations: The Federal rules restrict any use of the information to criminally investigate or prosecute any alcohol or drug abuse patient.[facility] HospitalIn the event this information is protected by the Federal Confidentiality of Alcohol and Drug Abuse Patient Records regulations: The Federal rules restrict any use of the information to criminally investigate or prosecute any alcohol or drug abuse patient.[facility] HospitalIn the event this information is protected by the Federal Confidentiality of Alcohol and Drug Abuse Patient Records regulations: The Federal rules restrict any use of the information to criminally investigate or prosecute any alcohol or drug abuse patient.[facility] HospitalIn the event this information is protected by the Federal Confidentiality of Alcohol and Drug Abuse Patient Records regulations: The Federal rules restrict any use of the information to criminally investigate or prosecute any alcohol or drug abuse patient.[facility] HospitalIn the event this information is protected by the Federal Confidentiality of Alcohol and Drug Abuse Patient Records regulations: The Federal rules restrict any use of the information to criminally investigate or prosecute any alcohol or drug abuse patient.[facility] HospitalIn the event this information is protected by the Federal Confidentiality of Alcohol and Drug Abuse Patient Records regulations: The Federal rules restrict any use of the information to criminally investigate or prosecute any alcohol or drug abuse patient.[facility] HospitalIn the event this information is protected by the Federal Confidentiality of Alcohol and Drug Abuse Patient Records regulations: The Federal rules restrict any use of the information to criminally investigate or prosecute any alcohol or drug abuse patient.[facility] HospitalIn the event this information is protected by the Federal Confidentiality of Alcohol and Drug Abuse Patient Records regulations: The Federal rules restrict any use of the information to criminally investigate or prosecute any alcohol or drug abuse patient.[facility] HospitalIn the event this information is protected by the Federal Confidentiality of Alcohol and Drug Abuse Patient Records regulations: The Federal rules restrict any use of the information to criminally investigate or prosecute any alcohol or drug abuse patient.[facility] HospitalIn the event this information is protected by the Federal Confidentiality of Alcohol and Drug Abuse Patient Records regulations: The Federal rules restrict any use of the information to criminally investigate or prosecute any alcohol or drug abuse patient.[facility] HospitalIn the event this information is protected by the Federal Confidentiality of Alcohol and Drug Abuse Patient Records regulations: The Federal rules restrict any use of the information to criminally investigate or prosecute any alcohol or drug abuse patient.[facility] HospitalIn the event this information is protected by the Federal Confidentiality of Alcohol and Drug Abuse Patient Records regulations: The Federal rules restrict any use of the information to criminally investigate or prosecute any alcohol or drug abuse patient.[facility] HospitalIn the event this information is protected by the Federal Confidentiality of Alcohol and Drug Abuse Patient Records regulations: The Federal rules restrict any use of the information to criminally investigate or prosecute any alcohol or drug abuse patient.[facility] HospitalIn the event this information is protected by the Federal Confidentiality of Alcohol and Drug Abuse Patient Records regulations: The Federal rules restrict any use of the information to criminally investigate or prosecute any alcohol or drug abuse patient.[facility] HospitalIn the event this information is protected by the Federal Confidentiality of Alcohol and Drug Abuse Patient Records regulations: The Federal rules restrict any use of the information to criminally investigate or prosecute any alcohol or drug abuse patient.[facility] HospitalIn the event this information is protected by the Federal Confidentiality of Alcohol and Drug Abuse Patient Records regulations: The Federal rules restrict any use of the information to criminally investigate or prosecute any alcohol or drug abuse patient.[facility] HospitalIn the event this information is protected by the Federal Confidentiality of Alcohol and Drug Abuse Patient Records regulations: The Federal rules restrict any use of the information to criminally investigate or prosecute any alcohol or drug abuse patient.[facility] HospitalIn the event this information is protected by the Federal Confidentiality of Alcohol and Drug Abuse Patient Records regulations: The Federal rules restrict any use of the information to criminally investigate or prosecute any alcohol or drug abuse patient.[facility] HospitalIn the event this information is protected by the Federal Confidentiality of Alcohol and Drug Abuse Patient Records regulations: The Federal rules restrict any use of the information to criminally investigate or prosecute any alcohol or drug abuse patient.[facility] HospitalIn the event this information is protected by the Federal Confidentiality of Alcohol and Drug Abuse Patient Records regulations: The Federal rules restrict any use of the information to criminally investigate or prosecute any alcohol or drug abuse patient.[facility] HospitalIn the event this information is protected by the Federal Confidentiality of Alcohol and Drug Abuse Patient Records regulations: The Federal rules restrict any use of the information to criminally investigate or prosecute any alcohol or drug abuse patient.[facility] HospitalIn the event this information is protected by the Federal Confidentiality of Alcohol and Drug Abuse Patient Records regulations: The Federal rules restrict any use of the information to criminally investigate or prosecute any alcohol or drug abuse patient.[facility] HospitalIn the event this information is protected by the Federal Confidentiality of Alcohol and Drug Abuse Patient Records regulations: The Federal rules restrict any use of the information to criminally investigate or prosecute any alcohol or drug abuse patient.[facility] HospitalIn the event this information is protected by the Federal Confidentiality of Alcohol and Drug Abuse Patient Records regulations: The Federal rules restrict any use of the information to criminally investigate or prosecute any alcohol or drug abuse patient.[facility] HospitalIn the event this information is protected by the Federal Confidentiality of Alcohol and Drug Abuse Patient Records regulations: The Federal rules restrict any use of the information to criminally investigate or prosecute any alcohol or drug abuse patient.[facility] HospitalIn the event this information is protected by the Federal Confidentiality of Alcohol and Drug Abuse Patient Records regulations: The Federal rules restrict any use of the information to criminally investigate or prosecute any alcohol or drug abuse patient.[facility] HospitalIn the event this information is protected by the Federal Confidentiality of Alcohol and Drug Abuse Patient Records regulations: The Federal rules restrict any use of the information to criminally investigate or prosecute any alcohol or drug abuse patient.[facility] HospitalIn the event this information is protected by the Federal Confidentiality of Alcohol and Drug Abuse Patient Records regulations: The Federal rules restrict any use of the information to criminally investigate or prosecute any alcohol or drug abuse patient.[facility] HospitalIn the event this information is protected by the Federal Confidentiality of Alcohol and Drug Abuse Patient Records regulations: The Federal rules restrict any use of the information to criminally investigate or prosecute any alcohol or drug abuse patient.[facility]In the event this information is protected by the Federal Confidentiality of Alcohol and Drug Abuse Patient Records regulations: The Federal rules restrict any use of the information to criminally investigate or prosecute any alcohol or drug abuse patient.[facility] HospitalIn the event this information is protected by the Federal Confidentiality of Alcohol and Drug Abuse Patient Records regulations: The Federal rules restrict any use of the information to criminally investigate or prosecute any alcohol or drug abuse patient.[facility] HospitalIn the event this information is protected by the Federal Confidentiality of Alcohol and Drug Abuse Patient Records regulations: The Federal rules restrict any use of the information to criminally investigate or prosecute any alcohol or drug abuse patient.[facility] HospitalIn the event this information is protected by the Federal Confidentiality of Alcohol and Drug Abuse Patient Records regulations: The Federal rules restrict any use of the information to criminally investigate or prosecute any alcohol or drug abuse patient.[facility] HospitalIn the event this information is protected by the Federal Confidentiality of Alcohol and Drug Abuse Patient Records regulations: The Federal rules restrict any use of the information to criminally investigate or prosecute any alcohol or drug abuse patient.[facility] HospitalIn the event this information is protected by the Federal Confidentiality of Alcohol and Drug Abuse Patient Records regulations: The Federal rules restrict any use of the information to criminally investigate or prosecute any alcohol or drug abuse patient.[facility] HospitalIn the event this information is protected by the Federal Confidentiality of Alcohol and Drug Abuse Patient Records regulations: The Federal rules restrict any use of the information to criminally investigate or prosecute any alcohol or drug abuse patient.[facility] HospitalIn the event this information is protected by the Federal Confidentiality of Alcohol and Drug Abuse Patient Records regulations: The Federal rules restrict any use of the information to criminally investigate or prosecute any alcohol or drug abuse patient.[facility] HospitalIn the event this information is protected by the Federal Confidentiality of Alcohol and Drug Abuse Patient Records regulations: The Federal rules restrict any use of the information to criminally investigate or prosecute any alcohol or drug abuse patient.[facility] HospitalIn the event this information is protected by the Federal Confidentiality of Alcohol and Drug Abuse Patient Records regulations: The Federal rules restrict any use of the information to criminally investigate or prosecute any alcohol or drug abuse patient.[facility] HospitalIn the event this information is protected by the Federal Confidentiality of Alcohol and Drug Abuse Patient Records regulations: The Federal rules restrict any use of the information to criminally investigate or prosecute any alcohol or drug abuse patient.[facility] HospitalIn the event this information is protected by the Federal Confidentiality of Alcohol and Drug Abuse Patient Records regulations: The Federal rules restrict any use of the information to criminally investigate or prosecute any alcohol or drug abuse patient.[facility] HospitalIn the event this information is protected by the Federal Confidentiality of Alcohol and Drug Abuse Patient Records regulations: The Federal rules restrict any use of the information to criminally investigate or prosecute any alcohol or drug abuse patient.[facility] HospitalIn the event this information is protected by the Federal Confidentiality of Alcohol and Drug Abuse Patient Records regulations: The Federal rules restrict any use of the information to criminally investigate or prosecute any alcohol or drug abuse patient.[facility] HospitalIn the event this information is protected by the Federal Confidentiality of Alcohol and Drug Abuse Patient Records regulations: The Federal rules restrict any use of the information to criminally investigate or prosecute any alcohol or drug abuse patient.[facility] HospitalIn the event this information is protected by the Federal Confidentiality of Alcohol and Drug Abuse Patient Records regulations: The Federal rules restrict any use of the information to criminally investigate or prosecute any alcohol or drug abuse patient.[facility] HospitalIn the event this information is protected by the Federal Confidentiality of Alcohol and Drug Abuse Patient Records regulations: The Federal rules restrict any use of the information to criminally investigate or prosecute any alcohol or drug abuse patient.[facility] HospitalIn the event this information is protected by the Federal Confidentiality of Alcohol and Drug Abuse Patient Records regulations: The Federal rules restrict any use of the information to criminally investigate or prosecute any alcohol or drug abuse patient.[facility] HospitalIn the event this information is protected by the Federal Confidentiality of Alcohol and Drug Abuse Patient Records regulations: The Federal rules restrict any use of the information to criminally investigate or prosecute any alcohol or drug abuse patient.[facility] HospitalIn the event this information is protected by the Federal Confidentiality of Alcohol and Drug Abuse Patient Records regulations: The Federal rules restrict any use of the information to criminally investigate or prosecute any alcohol or drug abuse patient.[facility] HospitalIn the event this information is protected by the Federal Confidentiality of Alcohol and Drug Abuse Patient Records regulations: The Federal rules restrict any use of the information to criminally investigate or prosecute any alcohol or drug abuse patient.[facility] HospitalIn the event this information is protected by the Federal Confidentiality of Alcohol and Drug Abuse Patient Records regulations: The Federal rules restrict any use of the information to criminally investigate or prosecute any alcohol or drug abuse patient.[facility] HospitalIn the event this information is protected by the Federal Confidentiality of Alcohol and Drug Abuse Patient Records regulations: The Federal rules restrict any use of the information to criminally investigate or prosecute any alcohol or drug abuse patient.[facility] HospitalIn the event this information is protected by the Federal Confidentiality of Alcohol and Drug Abuse Patient Records regulations: The Federal rules restrict any use of the information to criminally investigate or prosecute any alcohol or drug abuse patient.[facility] HospitalIn the event this information is protected by the Federal Confidentiality of Alcohol and Drug Abuse Patient Records regulations: The Federal rules restrict any use of the information to criminally investigate or prosecute any alcohol or drug abuse patient.[facility] HospitalIn the event this information is protected by the Federal Confidentiality of Alcohol and Drug Abuse Patient Records regulations: The Federal rules restrict any use of the information to criminally investigate or prosecute any alcohol or drug abuse patient.[facility] HospitalIn the event this information is protected by the Federal Confidentiality of Alcohol and Drug Abuse Patient Records regulations: The Federal rules restrict any use of the information to criminally investigate or prosecute any alcohol or drug abuse patient.[facility] HospitalIn the event this information is protected by the Federal Confidentiality of Alcohol and Drug Abuse Patient Records regulations: The Federal rules restrict any use of the information to criminally investigate or prosecute any alcohol or drug abuse patient.[facility] HospitalIn the event this information is protected by the Federal Confidentiality of Alcohol and Drug Abuse Patient Records regulations: The Federal rules restrict any use of the information to criminally investigate or prosecute any alcohol or drug abuse patient.[facility] HospitalIn the event this information is protected by the Federal Confidentiality of Alcohol and Drug Abuse Patient Records regulations: The Federal rules restrict any use of the information to criminally investigate or prosecute any alcohol or drug abuse patient.[facility] HospitalIn the event this information is protected by the Federal Confidentiality of Alcohol and Drug Abuse Patient Records regulations: The Federal rules restrict any use of the information to criminally investigate or prosecute any alcohol or drug abuse patient.[facility] HospitalIn the event this information is protected by the Federal Confidentiality of Alcohol and Drug Abuse Patient Records regulations: The Federal rules restrict any use of the information to criminally investigate or prosecute any alcohol or drug abuse patient.[facility] HospitalIn the event this information is protected by the Federal Confidentiality of Alcohol and Drug Abuse Patient Records regulations: The Federal rules restrict any use of the information to criminally investigate or prosecute any alcohol or drug abuse patient.[facility] HospitalIn the event this information is protected by the Federal Confidentiality of Alcohol and Drug Abuse Patient Records regulations: The Federal rules restrict any use of the information to criminally investigate or prosecute any alcohol or drug abuse patient.[facility] HospitalIn the event this information is protected by the Federal Confidentiality of Alcohol and Drug Abuse Patient Records regulations: The Federal rules restrict any use of the information to criminally investigate or prosecute any alcohol or drug abuse patient.[facility] HospitalIn the event this information is protected by the Federal Confidentiality of Alcohol and Drug Abuse Patient Records regulations: The Federal rules restrict any use of the information to criminally investigate or prosecute any alcohol or drug abuse patient.[facility] HospitalIn the event this information is protected by the Federal Confidentiality of Alcohol and Drug Abuse Patient Records regulations: The Federal rules restrict any use of the information to criminally investigate or prosecute any alcohol or drug abuse patient.[facility] HospitalIn the event this information is protected by the Federal Confidentiality of Alcohol and Drug Abuse Patient Records regulations: The Federal rules restrict any use of the information to criminally investigate or prosecute any alcohol or drug abuse patient.[facility] HospitalIn the event this information is protected by the Federal Confidentiality of Alcohol and Drug Abuse Patient Records regulations: The Federal rules restrict any use of the information to criminally investigate or prosecute any alcohol or drug abuse patient.[facility] HospitalIn the event this information is protected by the Federal Confidentiality of Alcohol and Drug Abuse Patient Records regulations: The Federal rules restrict any use of the information to criminally investigate or prosecute any alcohol or drug abuse patient.[facility] HospitalIn the event this information is protected by the Federal Confidentiality of Alcohol and Drug Abuse Patient Records regulations: The Federal rules restrict any use of the information to criminally investigate or prosecute any alcohol or drug abuse patient.[facility] HospitalIn the event this information is protected by the Federal Confidentiality of Alcohol and Drug Abuse Patient Records regulations: The Federal rules restrict any use of the information to criminally investigate or prosecute any alcohol or drug abuse patient.[facility] HospitalIn the event this information is protected by the Federal Confidentiality of Alcohol and Drug Abuse Patient Records regulations: The Federal rules restrict any use of the information to criminally investigate or prosecute any alcohol or drug abuse patient.[facility] HospitalIn the event this information is protected by the Federal Confidentiality of Alcohol and Drug Abuse Patient Records regulations: The Federal rules restrict any use of the information to criminally investigate or prosecute any alcohol or drug abuse patient.[facility] HospitalIn the event this information is protected by the Federal Confidentiality of Alcohol and Drug Abuse Patient Records regulations: The Federal rules restrict any use of the information to criminally investigate or prosecute any alcohol or drug abuse patient.[facility] HospitalIn the event this information is protected by the Federal Confidentiality of Alcohol and Drug Abuse Patient Records regulations: The Federal rules restrict any use of the information to criminally investigate or prosecute any alcohol or drug abuse patient.[facility] HospitalIn the event this information is protected by the Federal Confidentiality of Alcohol and Drug Abuse Patient Records regulations: The Federal rules restrict any use of the information to criminally investigate or prosecute any alcohol or drug abuse patient.[facility] HospitalIn the event this information is protected by the Federal Confidentiality of Alcohol and Drug Abuse Patient Records regulations: The Federal rules restrict any use of the information to criminally investigate or prosecute any alcohol or drug abuse patient.[facility] HospitalIn the event this information is protected by the Federal Confidentiality of Alcohol and Drug Abuse Patient Records regulations: The Federal rules restrict any use of the information to criminally investigate or prosecute any alcohol or drug abuse patient.[facility] HospitalIn the event this information is protected by the Federal Confidentiality of Alcohol and Drug Abuse Patient Records regulations: The Federal rules restrict any use of the information to criminally investigate or prosecute any alcohol or drug abuse patient.[facility]In the event this information is protected by the Federal Confidentiality of Alcohol and Drug Abuse Patient Records regulations: The Federal rules restrict any use of the information to criminally investigate or prosecute any alcohol or drug abuse patient.[facility] HospitalIn the event this information is protected by the Federal Confidentiality of Alcohol and Drug Abuse Patient Records regulations: The Federal rules restrict any use of the information to criminally investigate or prosecute any alcohol or drug abuse patient.[facility] HospitalIn the event this information is protected by the Federal Confidentiality of Alcohol and Drug Abuse Patient Records regulations: The Federal rules restrict any use of the information to criminally investigate or prosecute any alcohol or drug abuse patient.[facility] HospitalIn the event this information is protected by the Federal Confidentiality of Alcohol and Drug Abuse Patient Records regulations: The Federal rules restrict any use of the information to criminally investigate or prosecute any alcohol or drug abuse patient.[facility] HospitalIn the event this information is protected by the Federal Confidentiality of Alcohol and Drug Abuse Patient Records regulations: The Federal rules restrict any use of the information to criminally investigate or prosecute any alcohol or drug abuse patient.[facility] HospitalIn the event this information is protected by the Federal Confidentiality of Alcohol and Drug Abuse Patient Records regulations: The Federal rules restrict any use of the information to criminally investigate or prosecute any alcohol or drug abuse patient.[facility] HospitalIn the event this information is protected by the Federal Confidentiality of Alcohol and Drug Abuse Patient Records regulations: The Federal rules restrict any use of the information to criminally investigate or prosecute any alcohol or drug abuse patient.[facility] HospitalIn the event this information is protected by the Federal Confidentiality of Alcohol and Drug Abuse Patient Records regulations: The Federal rules restrict any use of the information to criminally investigate or prosecute any alcohol or drug abuse patient.[facility] HospitalIn the event this information is protected by the Federal Confidentiality of Alcohol and Drug Abuse Patient Records regulations: The Federal rules restrict any use of the information to criminally investigate or prosecute any alcohol or drug abuse patient.[facility] HospitalIn the event this information is protected by the Federal Confidentiality of Alcohol and Drug Abuse Patient Records regulations: The Federal rules restrict any use of the information to criminally investigate or prosecute any alcohol or drug abuse patient.[facility] HospitalIn the event this information is protected by the Federal Confidentiality of Alcohol and Drug Abuse Patient Records regulations: The Federal rules restrict any use of the information to criminally investigate or prosecute any alcohol or drug abuse patient.[facility] HospitalIn the event this information is protected by the Federal Confidentiality of Alcohol and Drug Abuse Patient Records regulations: The Federal rules restrict any use of the information to criminally investigate or prosecute any alcohol or drug abuse patient.[facility] HospitalIn the event this information is protected by the Federal Confidentiality of Alcohol and Drug Abuse Patient Records regulations: The Federal rules restrict any use of the information to criminally investigate or prosecute any alcohol or drug abuse patient.[facility] HospitalIn the event this information is protected by the Federal Confidentiality of Alcohol and Drug Abuse Patient Records regulations: The Federal rules restrict any use of the information to criminally investigate or prosecute any alcohol or drug abuse patient.[facility] HospitalIn the event this information is protected by the Federal Confidentiality of Alcohol and Drug Abuse Patient Records regulations: The Federal rules restrict any use of the information to criminally investigate or prosecute any alcohol or drug abuse patient.[facility] HospitalIn the event this information is protected by the Federal Confidentiality of Alcohol and Drug Abuse Patient Records regulations: The Federal rules restrict any use of the information to criminally investigate or prosecute any alcohol or drug abuse patient.[facility] HospitalIn the event this information is protected by the Federal Confidentiality of Alcohol and Drug Abuse Patient Records regulations: The Federal rules restrict any use of the information to criminally investigate or prosecute any alcohol or drug abuse patient.[facility] HospitalIn the event this information is protected by the Federal Confidentiality of Alcohol and Drug Abuse Patient Records regulations: The Federal rules restrict any use of the information to criminally investigate or prosecute any alcohol or drug abuse patient.[facility] HospitalIn the event this information is protected by the Federal Confidentiality of Alcohol and Drug Abuse Patient Records regulations: The Federal rules restrict any use of the information to criminally investigate or prosecute any alcohol or drug abuse patient.[facility] HospitalIn the event this information is protected by the Federal Confidentiality of Alcohol and Drug Abuse Patient Records regulations: The Federal rules restrict any use of the information to criminally investigate or prosecute any alcohol or drug abuse patient.[facility] HospitalIn the event this information is protected by the Federal Confidentiality of Alcohol and Drug Abuse Patient Records regulations: The Federal rules restrict any use of the information to criminally investigate or prosecute any alcohol or drug abuse patient.[facility] HospitalIn the event this information is protected by the Federal Confidentiality of Alcohol and Drug Abuse Patient Records regulations: The Federal rules restrict any use of the information to criminally investigate or prosecute any alcohol or drug abuse patient.[facility] HospitalIn the event this information is protected by the Federal Confidentiality of Alcohol and Drug Abuse Patient Records regulations: The Federal rules restrict any use of the information to criminally investigate or prosecute any alcohol or drug abuse patient.[facility] HospitalIn the event this information is protected by the Federal Confidentiality of Alcohol and Drug Abuse Patient Records regulations: The Federal rules restrict any use of the information to criminally investigate or prosecute any alcohol or drug abuse patient.[facility] HospitalIn the event this information is protected by the Federal Confidentiality of Alcohol and Drug Abuse Patient Records regulations: The Federal rules restrict any use of the information to criminally investigate or prosecute any alcohol or drug abuse patient.[facility] HospitalIn the event this information is protected by the Federal Confidentiality of Alcohol and Drug Abuse Patient Records regulations: The Federal rules restrict any use of the information to criminally investigate or prosecute any alcohol or drug abuse patient.[facility] HospitalIn the event this information is protected by the Federal Confidentiality of Alcohol and Drug Abuse Patient Records regulations: The Federal rules restrict any use of the information to criminally investigate or prosecute any alcohol or drug abuse patient.[facility] HospitalIn the event this information is protected by the Federal Confidentiality of Alcohol and Drug Abuse Patient Records regulations: The Federal rules restrict any use of the information to criminally investigate or prosecute any alcohol or drug abuse patient.[facility] HospitalIn the event this information is protected by the Federal Confidentiality of Alcohol and Drug Abuse Patient Records regulations: The Federal rules restrict any use of the information to criminally investigate or prosecute any alcohol or drug abuse patient.[facility] HospitalIn the event this information is protected by the Federal Confidentiality of Alcohol and Drug Abuse Patient Records regulations: The Federal rules restrict any use of the information to criminally investigate or prosecute any alcohol or drug abuse patient.[facility] HospitalIn the event this information is protected by the Federal Confidentiality of Alcohol and Drug Abuse Patient Records regulations: The Federal rules restrict any use of the information to criminally investigate or prosecute any alcohol or drug abuse patient.[facility] HospitalIn the event this information is protected by the Federal Confidentiality of Alcohol and Drug Abuse Patient Records regulations: The Federal rules restrict any use of the information to criminally investigate or prosecute any alcohol or drug abuse patient.[facility] HospitalIn the event this information is protected by the Federal Confidentiality of Alcohol and Drug Abuse Patient Records regulations: The Federal rules restrict any use of the information to criminally investigate or prosecute any alcohol or drug abuse patient.[facility] HospitalIn the event this information is protected by the Federal Confidentiality of Alcohol and Drug Abuse Patient Records regulations: The Federal rules restrict any use of the information to criminally investigate or prosecute any alcohol or drug abuse patient.[facility] HospitalIn the event this information is protected by the Federal Confidentiality of Alcohol and Drug Abuse Patient Records regulations: The Federal rules restrict any use of the information to criminally investigate or prosecute any alcohol or drug abuse patient.[facility] HospitalIn the event this information is protected by the Federal Confidentiality of Alcohol and Drug Abuse Patient Records regulations: The Federal rules restrict any use of the information to criminally investigate or prosecute any alcohol or drug abuse patient.[facility] HospitalIn the event this information is protected by the Federal Confidentiality of Alcohol and Drug Abuse Patient Records regulations: The Federal rules restrict any use of the information to criminally investigate or prosecute any alcohol or drug abuse patient.[facility] HospitalIn the event this information is protected by the Federal Confidentiality of Alcohol and Drug Abuse Patient Records regulations: The Federal rules restrict any use of the information to criminally investigate or prosecute any alcohol or drug abuse patient.[facility] HospitalIn the event this information is protected by the Federal Confidentiality of Alcohol and Drug Abuse Patient Records regulations: The Federal rules restrict any use of the information to criminally investigate or prosecute any alcohol or drug abuse patient.[facility] HospitalIn the event this information is protected by the Federal Confidentiality of Alcohol and Drug Abuse Patient Records regulations: The Federal rules restrict any use of the information to criminally investigate or prosecute any alcohol or drug abuse patient.[facility] HospitalIn the event this information is protected by the Federal Confidentiality of Alcohol and Drug Abuse Patient Records regulations: The Federal rules restrict any use of the information to criminally investigate or prosecute any alcohol or drug abuse patient.[facility] HospitalIn the event this information is protected by the Federal Confidentiality of Alcohol and Drug Abuse Patient Records regulations: The Federal rules restrict any use of the information to criminally investigate or prosecute any alcohol or drug abuse patient.[facility] HospitalIn the event this information is protected by the Federal Confidentiality of Alcohol and Drug Abuse Patient Records regulations: The Federal rules restrict any use of the information to criminally investigate or prosecute any alcohol or drug abuse patient.[facility] HospitalIn the event this information is protected by the Federal Confidentiality of Alcohol and Drug Abuse Patient Records regulations: The Federal rules restrict any use of the information to criminally investigate or prosecute any alcohol or drug abuse patient.[facility] HospitalIn the event this information is protected by the Federal Confidentiality of Alcohol and Drug Abuse Patient Records regulations: The Federal rules restrict any use of the information to criminally investigate or prosecute any alcohol or drug abuse patient.[facility] HospitalIn the event this information is protected by the Federal Confidentiality of Alcohol and Drug Abuse Patient Records regulations: The Federal rules restrict any use of the information to criminally investigate or prosecute any alcohol or drug abuse patient.[facility] HospitalIn the event this information is protected by the Federal Confidentiality of Alcohol and Drug Abuse Patient Records regulations: The Federal rules restrict any use of the information to criminally investigate or prosecute any alcohol or drug abuse patient.[facility] HospitalIn the event this information is protected by the Federal Confidentiality of Alcohol and Drug Abuse Patient Records regulations: The Federal rules restrict any use of the information to criminally investigate or prosecute any alcohol or drug abuse patient.[facility] HospitalIn the event this information is protected by the Federal Confidentiality of Alcohol and Drug Abuse Patient Records regulations: The Federal rules restrict any use of the information to criminally investigate or prosecute any alcohol or drug abuse patient.[facility] HospitalIn the event this information is protected by the Federal Confidentiality of Alcohol and Drug Abuse Patient Records regulations: The Federal rules restrict any use of the information to criminally investigate or prosecute any alcohol or drug abuse patient.[facility]In the event this information is protected by the Federal Confidentiality of Alcohol and Drug Abuse Patient Records regulations: The Federal rules restrict any use of the information to criminally investigate or prosecute any alcohol or drug abuse patient.[facility] HospitalIn the event this information is protected by the Federal Confidentiality of Alcohol and Drug Abuse Patient Records regulations: The Federal rules restrict any use of the information to criminally investigate or prosecute any alcohol or drug abuse patient.[facility] HospitalIn the event this information is protected by the Federal Confidentiality of Alcohol and Drug Abuse Patient Records regulations: The Federal rules restrict any use of the information to criminally investigate or prosecute any alcohol or drug abuse patient.[facility] HospitalIn the event this information is protected by the Federal Confidentiality of Alcohol and Drug Abuse Patient Records regulations: The Federal rules restrict any use of the information to criminally investigate or prosecute any alcohol or drug abuse patient.[facility] HospitalIn the event this information is protected by the Federal Confidentiality of Alcohol and Drug Abuse Patient Records regulations: The Federal rules restrict any use of the information to criminally investigate or prosecute any alcohol or drug abuse patient.[facility] HospitalIn the event this information is protected by the Federal Confidentiality of Alcohol and Drug Abuse Patient Records regulations: The Federal rules restrict any use of the information to criminally investigate or prosecute any alcohol or drug abuse patient.[facility] HospitalIn the event this information is protected by the Federal Confidentiality of Alcohol and Drug Abuse Patient Records regulations: The Federal rules restrict any use of the information to criminally investigate or prosecute any alcohol or drug abuse patient.[facility] HospitalIn the event this information is protected by the Federal Confidentiality of Alcohol and Drug Abuse Patient Records regulations: The Federal rules restrict any use of the information to criminally investigate or prosecute any alcohol or drug abuse patient.[facility] HospitalIn the event this information is protected by the Federal Confidentiality of Alcohol and Drug Abuse Patient Records regulations: The Federal rules restrict any use of the information to criminally investigate or prosecute any alcohol or drug abuse patient.[facility] HospitalIn the event this information is protected by the Federal Confidentiality of Alcohol and Drug Abuse Patient Records regulations: The Federal rules restrict any use of the information to criminally investigate or prosecute any alcohol or drug abuse patient.[facility] HospitalIn the event this information is protected by the Federal Confidentiality of Alcohol and Drug Abuse Patient Records regulations: The Federal rules restrict any use of the information to criminally investigate or prosecute any alcohol or drug abuse patient.[facility] HospitalIn the event this information is protected by the Federal Confidentiality of Alcohol and Drug Abuse Patient Records regulations: The Federal rules restrict any use of the information to criminally investigate or prosecute any alcohol or drug abuse patient.[facility] HospitalIn the event this information is protected by the Federal Confidentiality of Alcohol and Drug Abuse Patient Records regulations: The Federal rules restrict any use of the information to criminally investigate or prosecute any alcohol or drug abuse patient.[facility] HospitalIn the event this information is protected by the Federal Confidentiality of Alcohol and Drug Abuse Patient Records regulations: The Federal rules restrict any use of the information to criminally investigate or prosecute any alcohol or drug abuse patient.[facility] HospitalIn the event this information is protected by the Federal Confidentiality of Alcohol and Drug Abuse Patient Records regulations: The Federal rules restrict any use of the information to criminally investigate or prosecute any alcohol or drug abuse patient.[facility] HospitalIn the event this information is protected by the Federal Confidentiality of Alcohol and Drug Abuse Patient Records regulations: The Federal rules restrict any use of the information to criminally investigate or prosecute any alcohol or drug abuse patient.[facility] HospitalIn the event this information is protected by the Federal Confidentiality of Alcohol and Drug Abuse Patient Records regulations: The Federal rules restrict any use of the information to criminally investigate or prosecute any alcohol or drug abuse patient.[facility] HospitalIn the event this information is protected by the Federal Confidentiality of Alcohol and Drug Abuse Patient Records regulations: The Federal rules restrict any use of the information to criminally investigate or prosecute any alcohol or drug abuse patient.[facility] HospitalIn the event this information is protected by the Federal Confidentiality of Alcohol and Drug Abuse Patient Records regulations: The Federal rules restrict any use of the information to criminally investigate or prosecute any alcohol or drug abuse patient.[facility] HospitalIn the event this information is protected by the Federal Confidentiality of Alcohol and Drug Abuse Patient Records regulations: The Federal rules restrict any use of the information to criminally investigate or prosecute any alcohol or drug abuse patient.[facility] HospitalIn the event this information is protected by the Federal Confidentiality of Alcohol and Drug Abuse Patient Records regulations: The Federal rules restrict any use of the information to criminally investigate or prosecute any alcohol or drug abuse patient.[facility] Reason for Visit (unrecogniz ed section and content) Reason Comments Physical Therapy Specialty Diagnoses / Procedures Referred By Clary abraham Referred To Contact [facility] Diagnoses Pelvic floor dysfunction in female Prolapse of intestine Urinary incontinence, unspecified type Procedures CONSULT TO PHYSICAL THERAPY PHYSICAL THERAPY EVALUATION HIGH COMPLEX 45 MINS Edenilson Nicholson, DO [address] [place] [address] [facility] [place] [address] [place] [id number] Referral ID Status Reason Start Date Expiration Date Visits Requested Visits Authorized [id number] Authorized Auto-Generat ed Referral 03/04/2021 03/03/2022 99 [...] Pain Specialty Diagnoses / Procedures Referred By Contpacheco t Referred To Contact Podiatry / PODIATRY Diagnoses Foot pain, left Erythema of foot Procedures CONSULT TO PODIATRY OFFICE/OUTPATIENT NEW HIGH MDM 60-74 MINUTES Kandi Contreras APRN.IS ARCHITECT [address] [place] [address] [facility] [address] [place] [address] Referral ID Status Reason Start Date Expiration Date Visits Requested Visits Authorized [id number] Pending Review PCP Requested Referral 07/21/2021 07/21/2022 [...] Reason Comments ER F/U Reason Comments Consult [facility] ER follow up Reason Comments Established Patient [...] frequency Procedures CONSULT TO UROLOGY OFFICE/OUTPATIENT NEW [facility] MDM 60-74 MINUTES Johnie Aguirre APRN.IS ARCHITECT [address] [place] [address] Referral ID Status Reason Start Date Expiration Date Visits Requested Visits Authorized [id number] Pending Review PCP Requested Referral 2 02/10/2023 1 1 Reason Comments Barky Cough x 3-4 days, frequent urination x this am Reason Comments [facility]6 Specialty Diagnoses / Procedures Referred By Contac t Referred To Contact XR IMAGING Diagnoses Rectocele Enterocele Rectal prolapse Procedures XR DEFECOGRAPHY RADIOLOGIC EXAM COLON SINGLE CONTRAST STUDY Yi Gonsalves APRN.IS ARCHITECT [address] [place] [address] Xr Imaging Referral ID Status Reason Start Date Expiration Date V isits Requested Visits Authorized [id number] Closed Auto-Generate d Referral 12/06/2021 01/05/2023 1 [...] NEW HIGH MDM 60-74 MINUTES Yi Gonsalves APRN.IS ARCHITECT [address] [place] [address] Referral ID Status Reason Start Date Expiration Date Visits Requested Visits Authorized [id number] Pending Review PCP Requested Referral 12/06/2021 12/06/2022 1 1 Reason Comments Leg Pain 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 Leg Pain [...] appts Specialty Diagnoses / Procedures Referred By Clary abraham Referred To Contact MR IMAGING Diagnoses Cystic mass of pancreas Procedures MRI PANC/ARETHA WO/W IVCON MRI ABDOMEN W/O & W/CONTRAST MATERIAL Edenilson Nicholson, DO [address] [place] [address] [place] [address] Referral ID Status Reason Start Date Expiration Date V isits Requested Visits Authorized [id number] Closed Auto-Generate d Referral 11/28/2022 12/28/2023 [address] Specialty Diagnoses / Procedures Referred By Clary abraham Referred To Contact CT IMAGING Diagnoses Chronic cough Rales Procedures CT CHEST WO IVCON DIAGNOSTIC COMPUTED TOMOGRAPHY THORAX W/O CNTRST Edenilson Nicholson, DO [address] [place] [address] Ct Imaging [id number] Referral ID Status Reason Start Date Expiration Date Visits Re quested Visits Authorized [id number] Closed 11/14/2022 12/29/2022 1 1 Specialty Diagnoses / Procedures Referred By Clary abraham Referred To Contact CT IMAGING Diagnoses Short-term memory loss Word finding difficulty Procedures CT BRAIN WO IVCON CT HEAD/BRAIN W/O CONTRAST MATERIAL Edenilson Nicholson, DO [address] [place] [address] Ct Imaging [id number] Referral ID Status Reason Start Date Expiration Date V isits Requested Visits Authorized [id number] Closed Auto-Generate d Referral 08/01/2022 08/31/2023 1 [...] Question Specialty Diagnoses / Procedures Referred By Contac t Referred To Contact MR IMAGING Diagnoses Pancreas cyst Cystic mass of pancreas Abnormal MRI of abdomen Procedures MRI PANC/ARETHA WO/W IVCON MRI ABDOMEN W/O & W/CONTRAST MATERIAL Edenilson Nicholson Fabio, DO [address] [place] [address] [place] [address] Referral ID Status Reason Start Date Expiration Date V isits Requested Visits Authorized [id number] Closed Auto-Generate d Referral 05/20/2023 02/15/2024 1 [...] requesting medication no longer on list 08/01/19 24 Reason Onset Date Comments Refill Request 08/02/2023 [...] HAND MINIMUM [address] [place] [address] [place] [address] [place] [address] Referral ID Status Reason Start Date Expiration Date V isits Requested Visits Authorized [id number] Closed Auto-Generate d Referral 05/02/2021 06/01/2022 1 [...] THERAPY EVALUATION HIGH COMPLEX 45 MINS Angeline Ray APRN.IS ARCHITECT [address] [place] [address] [facility] [place] [address] [place] [address] Referral ID Status Reason Start Date Expiration Date Visits Requested Visits Authorized [id number] Authorized Auto-Generat ed Referral 03/04/2024 03/03/2025 99 [...] Bump on right cheek x 3 days Reason Comments left arm falling asleep Reason Comments Urinary Frequency x 1 day Reason Comments Hospital F/U Reason Onset Date Comments Refill Request 09/14/2024 Reason Comments New Patient TIA 08/13/24, occasi onal paresthesia of left FA and hand. Completed 30 day cardiac event monitor. ASA 81 mg and Lipitor 40 mg started. Specialty Diagnoses / Procedures Referred By Contac t Referred To Contact Neurology Diagnoses TIA (transient ischemic attack) Paresthesia Procedures CONSULT TO NEUROLOGY OFFICE/OUTPATIENT [facility] 60 MINUTES To Duran MD [address] [place] [address] Phone: tel: fax: Referral ID Status Reason Start Date Expiration Date V isits Requested Visits Authorized [id number] Closed PCP Requested Referral 08/19/2024 08/19/2025 1 1 Reason Comments PT Discharge Specialty Diagnoses / Procedures Referred By Mandyac t Referred To Contact [facility] Diagnoses Radiculopathy, cervical region Procedures PHYSICAL THERAPY EVALUATION HIGH COMPLEX 45 MINS THERAPEUTIC EXERCISES RE, EA 15 MIN. Samantha Jordan PA-C [address] [place] [address] Phone: tel: fax: [facility] [address] [place] [address] Referral ID Status Reason Start Date Expiration Date Visits Requested Visits Authorized [id number] Authorized Auto-Generat ed Referral 03/04/2024 03/03/2025 99 99 Reason Comments left side weakness Reason Onset Date Comments Refill Request 11/06/2024 Reason Comments ER F/U brusin above left elbow no injury noted First appeared Saturday evening red achy an sore Reason Comments Chest Congestion cough x 1 day Care Teams (unrecognized sec tion and content) Associate Dean Of Students Relationship Specialty Start Date End Date Edenilson Nicholson DO [address] [place] [address] PCP - General Family Practice 05/23/16 Ino Purdy MD [address] [place] [address] Home Care Physician Orthopedics 03/29/20 Fremín Cartwright MD [address] [place], [place] [id number] Referring Orthopedics 03/29/20 Magnolia Preciado, PT [address] [place] [address] Auto Refinisher Post Acute Care 03/29/20 Associate Dean Of Students Relationship Specialty Start Date End Date Edenilson Nicholson, DO [address] [place] [address] PCP - General Family Practice 05/23/16 Ino Purdy MD [address] [place] [address] Home Care Physician Orthopedics 03/29/20 Fermín Cartwright MD [address] [place] [address] Referring Orthopedics 03/29/20 Magnolia Preciado, PT [address] [place] [address] Auto Refinisher Post Acute Care 03/29/20 Associate Dean Of Students Relationship Specialty Start Date End Date Edenilson Nicholson, DO [address] [place] [address] PCP - General Family Practice 05/23/16 Ino Purdy MD [address] [facility] [place] [address] Home Care Physician Orthopedics 03/29/20 Fermín Cartwright MD [address] [place] [address] Referring Orthopedics 03/29/20 Magnolia Preciado, PT [address] [place] [address] Auto Refinisher Post Acute Care 03/29/20 Associate Dean Of Students Relationship Specialty Start Date End Date Edenilson Nicholson, DO [address] [place] [address] PCP - General Family Practice 05/23/16 Ino Purdy MD [address] [place] [address] Home Care Physician Orthopedics 03/29/20 Fermín Cartwright MD [address] [place] [address] Referring Orthopedics 03/29/20 Magnolia Preciado, PT [address] [place] [address] Auto Refinisher Post Acute Care 03/29/20 Associate Dean Of Students Relationship Specialty Start Date End Date Edenilson Nicholson, DO [address] [facility] [place] [address] PCP - General Family Practice 05/23/16 Ino Purdy MD [address] [place] [address] Home Care Physician Orthopedics 03/29/20 Fermín Cartwright MD [address] [place] [address] Referring Orthopedics 03/29/20 Magnolia Preciado, PT [address] [place] [address] Auto Refinisher Post Acute Care 03/29/20 Associate Dean Of Students Relationship Specialty Start Date End Date Edenilson Nicholson, DO [address] [place] [address] PCP - General Family Practice 05/23/16 Ino Purdy MD [address] [facility] [place] [address] Home Care Physician Orthopedics 03/29/20 Fermín Cartwright MD [address] [place] [address] Referring Orthopedics 03/29/20 Magnolia Preciado, PT [address] [place] [address] Auto Refinisher Post Acute Care 03/29/20 Associate Dean Of Students Relationship Specialty Start Date End Date Edenilson Nicholson, DO [address] [facility] [place] [address] PCP - General Family Practice 05/23/16 Ino Purdy MD [address] [place] [address] Home Care Physician Orthopedics 03/29/20 Fermín Cartwright MD [address] [place] [address] Referring Orthopedics 03/29/20 Magnolia Preciado, PT [address] [place] [address] Auto Refinisher Post Acute Care 03/29/20 Associate Dean Of Students Relationship Specialty Start Date End Date Edenilson Nicholson, DO [address] [place] [address] PCP - General Family Practice 05/23/16 Ino Purdy MD [address] [place] [address] Home Care Physician Orthopedics 03/29/20 Fermín Cartwright MD [address] [place] [address] Referring Orthopedics 03/29/20 Magnolia Preciado, PT [address] [place] [address] Auto Refinisher Post Acute Care 03/29/20 Associate Dean Of Students Relationship Specialty Start Date End Date Edenilsno Nicholson, DO [address] [place] [address] PCP - General Family Practice 05/23/16 Ino Purdy MD [address] [place] [address] Home Care Physician Orthopedics 03/29/20 Fermín Cartwright MD [address] [place] [address] Referring Orthopedics 03/29/20 Magnolia Preciado, PT [address] [place] [address] Auto Refinisher Post Acute Care 03/29/20 Associate Dean Of Students Relationship Specialty Start Date End Date Edenilson Nicholson, DO [address] [place] [address] PCP - General Family Practice 05/23/16 Ino Purdy MD [address] [place] [address] Home Care Physician Orthopedics 03/29/20 Fermín Cartwright MD [address] [place] [address] Referring Orthopedics 03/29/20 Magnolia Preciado, PT [address] [place] [address] Auto Refinisher Post Acute Care 03/29/20 Associate Dean Of Students Relationship Specialty Start Date End Date Edenilson Nicholson, DO [address] [place] [address] PCP - General Family Practice 05/23/16 Ino Purdy MD [address] [place] [address] Home Care Physician Orthopedics 03/29/20 Fermín Cartwright MD [address] [place] [address] Referring Orthopedics 03/29/20 Magnolia Preciado, PT [address] [place] [address] Auto Refinisher Post Acute Care 03/29/20 Associate Dean Of Students Relationship Specialty Start Date End Date Edenilson Nicholson, DO [address] [place] [address] PCP - General Family Practice 05/23/16 Ino Purdy MD [address] [place] [address] Home Care Physician Orthopedics 03/29/20 Fermín Cartwright MD [address] [place] [address] Referring Orthopedics 03/29/20 Magnolia Preciado, PT [address] [place] [address] Auto Refinisher Post Acute Care 03/29/20 Associate Dean Of Students Relationship Specialty Start Date End Date Edenilson Nicholson, DO [address] [facility] [place] [address] PCP - General Family Practice 05/23/16 Ino Purdy MD [address] [place] [address] Home Care Physician Orthopedics 03/29/20 Fermín Cartwright MD [address] [place] [address] Referring Orthopedics 03/29/20 Magnolia Preciado, PT [address] [place] [address] Auto Refinisher Post Acute Care 03/29/20 Associate Dean Of Students Relationship Specialty Start Date End Date Edenilson Nicholson, DO [address] [place] [address] PCP - General Family Practice 05/23/16 Ino Purdy MD [address] [place] [address] Home Care Physician Orthopedics 03/29/20 Fermín Cartwright MD [address] [place] [address] Referring Orthopedics 03/29/20 Magnolia Preciado, PT [address] [place] [address] Auto Refinisher Post Acute Care 03/29/20 Associate Dean Of Students Relationship Specialty Start Date End Date Edenilson Nicholson, DO [address] [place] [address] PCP - General Family Practice 05/23/16 Ino Purdy MD [address] [place] [address] Home Care Physician Orthopedics 03/29/20 Fermín Cartwright MD [address] [place] [address] Referring Orthopedics 03/29/20 Magnolia Preciado, PT [address] [place] [address] Auto Refinisher Post Acute Care 03/29/20 Associate Dean Of Students Relationship Specialty Start Date End Date Edenilson Nicholson, DO [address] [place] [address] PCP - General Family Practice 05/23/16 Ino Purdy MD [address] [place] [address] Home Care Physician Orthopedics 03/29/20 eFrmín Cartwright MD [address] [place] [address] Referring Orthopedics 03/29/20 Magnolia Preciado, PT [address] [place] [address] Auto Refinisher Post Acute Care 03/29/20 Associate Dean Of Students Relationship Specialty Start Date End Date Edenilson Nicholson, DO [address] [place] [address] PCP - General Family Practice 05/23/16 Ino Purdy MD [address] [place] [address] Home Care Physician Orthopedics 03/29/20 Fermín Cartwright MD [address] [place] [address] Referring Orthopedics 03/29/20 Magnolia Preciado, PT [address] [place] [address] Auto Refinisher Post Acute Care 03/29/20 Associate Dean Of Students Relationship Specialty Start Date End Date Edenilson Nicholson, DO [address] [place] [address] PCP - General Family Practice 05/23/16 Ino Purdy MD [address] [place] [address] Home Care Physician Orthopedics 03/29/20 Fermín Cartwright MD [address] [place] [address] Referring Orthopedics 03/29/20 Magnolia Preciado, PT [address] [place] [address] Auto Refinisher Post Acute Care 03/29/20 Associate Dean Of Students Relationship Specialty Start Date End Date Edenilson Nicholson, DO [address] [facility] [place] [address] PCP - General Family Practice 05/23/16 Ino Purdy MD [address] [place] [address] Home Care Provider Orthopedics 03/29/20 Fermín Cartwright MD [address] [place] [address] Referring Orthopedics 03/29/20 Magnolia Preciado, PT [address] [place] [address] Auto Refinisher Post Acute Care 03/29/20 Associate Dean Of Students Relationship Specialty Start Date End Date Edenilson Nicholson, DO [address] [place] [address] PCP - General Family Medicine 05/23/16 Ino Purdy MD [address] [facility] [place] [address] Home Care Provider Orthopedics 03/29/20 Fermín Cartwright MD [address] [place] [address] Referring Orthopedics 03/29/20 Magnolia Preciado, PT [address] [place] [address] Auto Refinisher Post Acute Care 03/29/20 Associate Dean Of Students Relationship Specialty Start Date End Date Edenilson Nicholson, DO [address] [facility] [place] [address] PCP - General Family Medicine 05/23/16 Ino Purdy MD [address] [place] [address] Home Care Provider Orthopedics 03/29/20 Fermín Cartwright MD [address] [place] [address] Referring Orthopedics 03/29/20 Magnolia Preciado, PT [address] [place] [address] Auto Refinisher Post Acute Care 03/29/20 Associate Dean Of Students Relationship Specialty Start Date End Date Edenilson Nicholson, DO [address] [place] [address] PCP - General Family Medicine 05/23/16 Ino Purdy MD [address] [place] [address] Home Care Provider Orthopedics 03/29/20 Fermín Cartwright MD [address] [place] [address] Referring Orthopedics 03/29/20 Magnolia Preciado, PT [address] [place] [address] Auto Refinisher Post Acute Care 03/29/20 Associate Dean Of Students Relationship Specialty Start Date End Date Edenilson Nicholson, DO [address] [place] [address] PCP - General Family Medicine 05/23/16 Ino Purdy MD [address] [place] [address] Home Care Provider Orthopedics 03/29/20 Fermín Cartwright MD [address] [place] [address] Referring Orthopedics 03/29/20 Magnolia Preciado, PT [address] [place] [address] Auto Refinisher Post Acute Care 03/29/20 Associate Dean Of Students Relationship Specialty Start Date End Date Edenilson Nicholson, DO [address] [place] [address] PCP - General Family Medicine 05/23/16 Ino Purdy MD [address] [facility] [place] [address] Home Care Provider Orthopedics 03/29/20 Fermín Cartwright MD [address] [place] [address] Referring Orthopedics 03/29/20 Magnolia Preciado, PT [address] [place] [address] Auto Refinisher Post Acute Care 03/29/20 Associate Dean Of Students Relationship Specialty Start Date End Date Edenilson Nicholson, DO [address] [place] [address] PCP - General Family Medicine 05/23/16 Ino Purdy MD [address] [place] [address] Home Care Provider Orthopedics 03/29/20 Fermín Cartwright MD [address] [place] [address] Referring Orthopedics 03/29/20 Magnolia Preciado, PT [address] [place] [address] Auto Refinisher Post Acute Care 03/29/20 Associate Dean Of Students Relationship Specialty Start Date End Date Edenilson Nicholson, DO [address] [place] [address] PCP - General Family Medicine 05/23/16 Ino Purdy MD [address] [place] [address] Home Care Provider Orthopedics 03/29/20 Fermín Cartwright MD [address] [place] [address] Referring Orthopedics 03/29/20 Magnolia Preciado, PT [address] [place] [address] Auto Refinisher Post Acute Care 03/29/20 Associate Dean Of Students Relationship Specialty Start Date End Date Edenilson Nicholson, DO [address] [facility] [place] [address] PCP - General Family Medicine 05/23/16 Ino Purdy MD [address] [facility] [place] [address] Home Care Provider Orthopedics 03/29/20 Fermín Cartwright MD [address] [place] [address] Referring Orthopedics 03/29/20 Magnolia Preciado, PT [address] [place] [address] Auto Refinisher Post Acute Care 03/29/20 Associate Dean Of Students Relationship Specialty Start Date End Date Edenilson Nicholson, DO [address] [place] [address] PCP - General Family Medicine 05/23/16 Ino Purdy MD [address] [facility] [place] [address] Home Care Provider Orthopedics 03/29/20 Fermín Cartwright MD [address] [place] [address] Referring Orthopedics 03/29/20 Magnolia Preciado, PT [address] [place] [address] Auto Refinisher Post Acute Care 03/29/20 Associate Dean Of Students Relationship Specialty Start Date End Date Edenilson Nicholson, DO [address] [place] [address] PCP - General Family Medicine 05/23/16 Ino Purdy MD [address] [facility] [place] [address] Home Care Provider Orthopedics 03/29/20 Fermín Cartwright MD [address] [place] [address] Referring Orthopedics 03/29/20 Magnolia Preciado, PT [address] [place] [address] Auto Refinisher Post Acute Care 03/29/20 Associate Dean Of Students Relationship Specialty Start Date End Date Edenilson Nicholson, DO [address] [place] [address] PCP - General Family Medicine 05/23/16 Ino Purdy MD [address] [place] [address] Home Care Provider Orthopedics 03/29/20 Fermín Cartwright MD [address] [place] [address] Referring Orthopedics 03/29/20 Magnolia Preciado, PT [address] [place] [address] Auto Refinisher Post Acute Care 03/29/20 Associate Dean Of Students Relationship Specialty Start Date End Date Edenilson Nicholson DO [address] [place] [address] PCP - General Family Medicine 05/23/16 Ino Purdy MD [address] [facility] [place] [address] Home Care Provider Orthopedics 03/29/20 Fermín Cartwright MD [address] [place] [address] Referring Orthopedics 03/29/20 Magnolia Preciado, PT [address] [place] [address] Auto Refinisher Post Acute Care 03/29/20 Associate Dean Of Students Relationship Specialty Start Date End Date Edenilson Nicholson, DO [address] [place] [address] PCP - General Family Medicine 05/23/16 Ino Purdy MD [address] [place] [address] Home Care Provider Orthopedics 03/29/20 Fermín Cartwright MD [address] [place] [address] Referring Orthopedics 03/29/20 Magnolia Preciado, PT [address] [place] [address] Auto Refinisher Post Acute Care 03/29/20 Associate Dean Of Students Relationship Specialty Start Date End Date Edenilson Nicholson, DO [address] [facility] [place] [address] PCP - General Family Medicine 05/23/16 Ino Purdy MD [address] [facility] [place] [address] Home Care Provider Orthopedics 03/29/20 Fermín Cartwright MD [address] [place] [address] Referring Orthopedics 03/29/20 Magnolia Preciado, PT [address] [place] [address] Auto Refinisher Post Acute Care 03/29/20 Associate Dean Of Students Relationship Specialty Start Date End Date Edenilson Nicholson, DO [address] [place] [address] PCP - General Family Medicine 05/23/16 Ino Purdy MD [address] [facility] [place] [address] Home Care Provider Orthopedics 03/29/20 Fermín Cartwright MD [address] [place] [address] Referring Orthopedics 03/29/20 Magnolia Preciado, PT [address] [place] [address] Auto Refinisher Post Acute Care 03/29/20 Associate Dean Of Students Relationship Specialty Start Date End Date Edenilson Nicholson, DO [address] [facility] [place] [address] PCP - General Family Medicine 05/23/16 Ino Purdy MD [address] [place] [address] Home Care Provider Orthopedics 03/29/20 Fermín Cartwright MD [address] [place] [address] Referring Orthopedics 03/29/20 Magnolia Preciado, PT [address] [place] [address] Auto Refinisher Post Acute Care 03/29/20 Team Status: Active Member Role Status Dates Dr. Edenilson Nicholson , Family Provider Active Dr. Edenilson Nicholson DO Primary Care Provider Active Team Status: Inactive Member Role Status Dates Dr. Edenilson Nicholson , Primary Care Provider Active Dr. Dina Olea MD Attending Provider, Referring Provider Active Associate Dean Of Students Relationship Specialty Start Date End Date Edenilson Nicholson DO [address] [place] [address] PCP - General Family Medicine 05/23/16 Ino Purdy MD [address] [place] [address] Home Care Provider Orthopedics 03/29/20 Fermín Cartwright MD [address] [place] [address] Referring Orthopedics 03/29/20 Magnolia Preciado, PT [address] [place] [address] Auto Refinisher Post Acute Care 03/29/20 Associate Dean Of Students Relationship Specialty Start Date End Date Edenilson Nicholson DO [address] [place] [address] PCP - General Family Medicine 05/23/16 Ino Purdy MD [address] [place] [address] Home Care Provider Orthopedics 03/29/20 Fermín Cartwright MD [address] [place] [address] Referring Orthopedics 03/29/20 Magnolia Preciado, PT [address] [place] [address] Auto Refinisher Post Acute Care 03/29/20 Associate Dean Of Students Relationship Specialty Start Date End Date Edenilson Nicholson, DO [address] [place] [address] PCP - General Family Medicine 05/23/16 Ino Purdy MD [address] [place] [address] Home Care Provider Orthopedics 03/29/20 Fermín Cartwright MD [address] [place] [address] Referring Orthopedics 03/29/20 Magnolia Preciado, PT [address] [place] [address] Auto Refinisher Post Acute Care 03/29/20 Associate Dean Of Students Relationship Specialty Start Date End Date Edenilson Nicholson DO [address] [place] [address] PCP - General Family Medicine 05/23/16 Ino Puryd MD [address] [facility] [place] [address] Home Care Provider Orthopedics 03/29/20 Fermín Cartwright MD [address] [place] [address] Referring Orthopedics 03/29/20 Magnolia Preciado, PT [address] [place] [address] Auto Refinisher Post Acute Care 03/29/20 Associate Dean Of Students Relationship Specialty Start Date End Date Edenilson Nicholson, DO [address] [place] [address] PCP - General Family Medicine 05/23/16 Ino Purdy MD [address] [place] [address] Home Care Provider Orthopedics 03/29/20 Fermín Cartwright MD [address] [place] [address] Referring Orthopedics 03/29/20 Magnolia Preciado, PT [address] [place] [address] Auto Refinisher Post Acute Care 03/29/20 Associate Dean Of Students Relationship Specialty Start Date End Date Edenilson Nicholson DO [address] [place] [address] PCP - General Family Medicine 05/23/16 Ino Purdy MD [address] [place] [address] Home Care Provider Orthopedics 03/29/20 Fermín Cartwright MD [address] [place] [address] Referring Orthopedics 03/29/20 Magnolia Preciado, PT [address] [place] [address] Auto Refinisher Post Acute Care 03/29/20 Associate Dean Of Students Relationship Specialty Start Date End Date Edenilson Nicholson DO [address] [place] [address] PCP - General Family Medicine 05/23/16 Ino Purdy MD [address] [place] [address] Home Care Provider Orthopedics 03/29/20 Fermín Cartwright MD [address] [place] [address] Referring Orthopedics 03/29/20 Magnolia Preciado, PT [address] [place] [address] Auto Refinisher Post Acute Care 03/29/20 Team Status: Inactive Member Role Status Dates Dr. Edenilson Nicholson DO Primary Care Provider Active Dr. Dina Olea MD Attending Provider Active Associate Dean Of Students Relationship Specialty Start Date End Date Edenilson Nicholson DO [address] [place] [address] PCP - General Family Medicine 05/23/16 Ino Purdy MD [address] [place] [address] Home Care Provider Orthopedics 03/29/20 Fermín Cartwright MD [address] [place] [address] Referring Orthopedics 03/29/20 Magnolia Preciado, PT [address] [place] [address] Auto Refinisher Post Acute Care 03/29/20 Associate Dean Of Students Relationship Specialty Start Date End Date Edenilson Nicholosn DO [address] [place] [address] PCP - General Family Medicine 05/23/16 Ino Purdy MD [address] [facility] [place] [address] Home Care Provider Orthopedics 03/29/20 Fermín Cartwright MD [address] [place] [address] Referring Orthopedics 03/29/20 Magnolia Preciado, PT [address] [place] [address] Auto Refinisher Post Acute Care 03/29/20 Associate Dean Of Students Relationship Specialty Start Date End Date Edenilson Nicholson DO [address] [place] [address] PCP - General Family Medicine 05/23/16 Ino Purdy MD [address] [place] [address] Home Care Provider Orthopedics 03/29/20 Fermín Cartwright MD [address] [place] [address] Referring Orthopedics 03/29/20 Magnolia Preciado, PT [address] [place] [address] Auto Refinisher Post Acute Care 03/29/20 Associate Dean Of Students Relationship Specialty Start Date End Date Edenilson Nicholson DO [address] [place] [address] PCP - General Family Medicine 05/23/16 Ino Purdy MD [address] [place] [address] Home Care Provider Orthopedics 03/29/20 Fermín Cartwright MD [address] [place] [address] Referring Orthopedics 03/29/20 Magnolia Preciado, PT [address] [place] [address] Auto Refinisher Post Acute Care 03/29/20 Associate Dean Of Students Relationship Specialty Start Date End Date Edenilson Nicholson DO [address] [place] [address] PCP - General Family Medicine 05/23/16 Ino Purdy MD [address] [place] [address] Home Care Provider Orthopedics 03/29/20 Fermín Cartwright MD [address] [place] [address] Referring Orthopedics 03/29/20 Magnolia Preciado, PT [address] [place] [address] Auto Refinisher Post Acute Care 03/29/20 Associate Dean Of Students Relationship Specialty Start Date End Date Edenilson Nicholson DO [address] [place] [address] PCP - General Family Medicine 05/23/16 Ino Purdy MD [address] [facility] [place] [address] Home Care Provider Orthopedics 03/29/20 Fermín Cartwright MD [address] [place] [address] Referring Orthopedics 03/29/20 Magnolia Preciado, PT [address] [place] [address] Auto Refinisher Post Acute Care 03/29/20 Associate Dean Of Students Relationship Specialty Start Date End Date Edenilson Nicholson DO [address] [place] [address] PCP - General Family Medicine 05/23/16 Ino Purdy MD [address] [place] [address] Home Care Provider Orthopedics 03/29/20 Fermín Cartwright MD [address] [place] [address] Referring Orthopedics 03/29/20 Magnolia Preciado, PT [address] [place] [address] Auto Refinisher Post Acute Care 03/29/20 Associate Dean Of Students Relationship Specialty Start Date End Date Edenilson Nicholson DO [address] [place] [address] PCP - General Family Medicine 05/23/16 Ino Purdy MD [address] [place] [address] Home Care Provider Orthopedics 03/29/20 Fermín Cartwright MD [address] [place] [address] Referring Orthopedics 03/29/20 Magnolia Preciado, PT [address] [place] [address] Auto Refinisher Post Acute Care 03/29/20 Associate Dean Of Students Relationship Specialty Start Date End Date Edenilson Nicholson DO [address] [place] [address] PCP - General Family Medicine 05/23/16 Ino Purdy MD [address] [place] [address] Home Care Provider Orthopedics 03/29/20 Fermín Cartwright MD [address] [place] [address] Referring Orthopedics 03/29/20 Magnolia Preciado, PT [address] [place] [address] Auto Refinisher Post Acute Care 03/29/20 Associate Dean Of Students Relationship Specialty Start Date End Date Edenilson Nicholson DO [address] [place] [address] PCP - General Family Medicine 05/23/16 Ino Purdy MD [address] [place] [address] Home Care Provider Orthopedics 03/29/20 Fermín Cartwright MD [address] [place] [address] Referring Orthopedics 03/29/20 Magnolia Preciado, PT [address] [place] [address] Auto Refinisher Post Acute Care 03/29/20 Associate Dean Of Students Relationship Specialty Start Date End Date Edenilson Nicholson DO [address] [place] [address] PCP - General Family Medicine 05/23/16 Ino Purdy MD [address] [place] [address] Home Care Provider Orthopedics 03/29/20 Fermín Cartwright MD [address] [place] [address] Referring Orthopedics 03/29/20 Magnolia Preciado, PT [address] [place] [address] Auto Refinisher Post Acute Care 03/29/20 12/10/22 Associate Dean Of Students Relationship Specialty Start Date End Date Edenilson Nicholson DO [address] [place] [address] PCP - General Family Medicine 05/23/16 Ino Purdy MD [address] [place] [address] Home Care Provider Orthopedics 03/29/20 Fermín Cartwright MD [address] [place] [address] Referring Orthopedics 03/29/20 Associate Dean Of Students Relationship Specialty Start Date End Date Edenilson Nicholson DO [address] [place] [address] PCP - General Family Medicine 05/23/16 Ino Purdy MD [address] [place] [address] Home Care Provider Orthopedics 03/29/20 Fermín Cartwright MD [address] [place] [address] Referring Orthopedics 03/29/20 Associate Dean Of Students Relationship Specialty Start Date End Date Edenilson Nicholson DO [address] [place] [address] PCP - General Family Medicine 05/23/16 Ino Purdy MD [address] [place] [address] Home Care Provider Orthopedics 03/29/20 Fermín Cartwright MD [address] [place] [address] Referring Orthopedics 03/29/20 Magnolia Preciado, PT [address] [place] [address] Auto Refinisher Post Acute Care 03/29/20 12/10/22 Associate Dean Of Students Relationship Specialty Start Date End Date Edenilson Nicholson DO [address] [place] [address] PCP - General Family Medicine 05/23/16 Ino Purdy MD [address] [place] [address] Home Care Provider Orthopedics 03/29/20 Fermín Cartwright MD [address] [place] [address] Referring Orthopedics 03/29/20 Magnolia Preciado, PT [address] [place] [address] Auto Refinisher Post Acute Care 03/29/20 12/10/22 Associate Dean Of Students Relationship Specialty Start Date End Date Edenilson Nicholson DO [address] [place] [address] PCP - General Family Medicine 05/23/16 Ino Purdy MD [address] [place] [address] Home Care Provider Orthopedics 03/29/20 Fermín Cartwright MD [address] [place] [address] Referring Orthopedics 03/29/20 Magnolia Preciado, PT [address] [place] [address] Auto Refinisher Post Acute Care 03/29/20 12/10/22 Associate Dean Of Students Relationship Specialty Start Date End Date Edenilson Nicholson DO [address] [place] [address] PCP - General Family Medicine 05/23/16 Ino Purdy MD [address] [place] [address] Home Care Provider Orthopedics 03/29/20 Fermín Cartwright MD [address] [place] [address] Referring Orthopedics 03/29/20 Magnolia Preciado, PT [address] [place] [address] Auto Refinisher Post Acute Care 03/29/20 12/10/22 Associate Dean Of Students Relationship Specialty Start Date End Date Edenilson Nicholson DO [address] [place] [address] PCP - General Family Medicine 05/23/16 Ino Purdy MD [address] [place] [address] Home Care Provider Orthopedics 03/29/20 Fermín Cartwright MD [address] [place] [address] Referring Orthopedics 03/29/20 Associate Dean Of Students Relationship Specialty Start Date End Date Edenilson Nicholson DO [address] [place] [address] PCP - General Family Medicine 05/23/16 Ino Purdy MD [address] [place] [address] Home Care Provider Orthopedics 03/29/20 Fermín Cartwright MD [address] [place] [address] Referring Orthopedics 03/29/20 Associate Dean Of Students Relationship Specialty Start Date End Date Edenilson Nicholson DO [address] [place] [address] PCP - General Family Medicine 05/23/16 Ino Purdy MD [address] [place] [address] Home Care Provider Orthopedics 03/29/20 Fermín Cartwright MD [address] [place] [address] Referring Orthopedics 03/29/20 Associate Dean Of Students Relationship Specialty Start Date End Date Edenilson Nicholson DO [address] [place] [address] PCP - General Family Medicine 05/23/16 Ino Purdy MD [address] [place] [address] Home Care Provider Orthopedics 03/29/20 Fermín Cartwright MD [address] [place] [address] Referring Orthopedics 03/29/20 Associate Dean Of Students Relationship Specialty Start Date End Date Edenilson Nicholson DO [address] [place] [address] PCP - General Family Medicine 05/23/16 Ino Purdy MD [address] [place] [address] Home Care Provider Orthopedics 03/29/20 Fermín Cartwright MD [address] [place] [address] Referring Orthopedics 03/29/20 Associate Dean Of Students Relationship Specialty Start Date End Date Edenilson Nicholson DO [address] [place] [address] PCP - General Family Medicine 05/23/16 Ino Purdy MD [address] [place] [address] Home Care Provider Orthopedics 03/29/20 Fermín Cartwright MD [address] [place] [address] Referring Orthopedics 03/29/20 Associate Dean Of Students Relationship Specialty Start Date End Date Edenilson Nicholson DO [address] [place] [address] PCP - General Family Medicine 05/23/16 Ino Purdy MD [address] [place] [address] Home Care Provider Orthopedics 03/29/20 Fermín Cartwright MD [address] [place] [address] Referring Orthopedics 03/29/20 Associate Dean Of Students Relationship Specialty Start Date End Date Edenilson Nicholson DO [address] [place] [address] PCP - General Family Medicine 05/23/16 Ino Purdy MD [address] [place] [address] Home Care Provider Orthopedics 03/29/20 Fermín Cartwright MD [address] [place] [address] Referring Orthopedics 03/29/20 Associate Dean Of Students Relationship Specialty Start Date End Date Edenilson Nicholson DO [address] [place] [address] PCP - General Family Medicine 05/23/16 Ino Purdy MD [address] [facility] [address] Home Care Provider Orthopedics 03/29/20 Fermín Cartwright MD [address] [place] [address] Referring Orthopedics 03/29/20 Associate Dean Of Students Relationship Specialty Start Date End Date Edenilson Nicholson DO [address] [place] [address] PCP - General Family Medicine 05/23/16 Ino Purdy MD [address] [place] [address] Home Care Provider Orthopedics 03/29/20 Fermín Cartwright MD [address] [place] [address] Referring Orthopedics 03/29/20 Associate Dean Of Students Relationship Specialty Start Date End Date Edenilson Nicholson DO [address] [place] [address] PCP - General Family Medicine 05/23/16 Ino Purdy MD [address] [place] [address] Home Care Provider Orthopedics 03/29/20 Fermín Cartwright MD [address] [place] [address] Referring Orthopedics 03/29/20 Associate Dean Of Students Relationship Specialty Start Date End Date Edenilson Nicholson DO [address] [place] [address] PCP - General Family Medicine 05/23/16 Ino Purdy MD [address] [place] [address] Home Care Provider Orthopedics 03/29/20 Fermín Cartwright MD [address] [place] [address] Referring Orthopedics 03/29/20 Associate Dean Of Students Relationship Specialty Start Date End Date Edenilson Nicholson DO [address] [place] [address] PCP - General Family Medicine 05/23/16 Ino Purdy MD [address] [place] [address] Home Care Provider Orthopedics 03/29/20 Fermín Cartwright MD [address] [place] [address] Referring Orthopedics 03/29/20 Associate Dean Of Students Relationship Specialty Start Date End Date Edenilson Nicholson DO [address] [place] [address] PCP - General Family Medicine 05/23/16 Ino Purdy MD [address] [place] [address] Home Care Provider Orthopedics 03/29/20 Fermín Cartwright MD [address] [place] [address] Referring Orthopedics 03/29/20 Associate Dean Of Students Relationship Specialty Start Date End Date Edenilson Nicholson DO [address] [place] [address] PCP - General Family Medicine 05/23/16 Ino Purdy MD [address] [place] [address] Home Care Provider Orthopedics 03/29/20 Fermín Cartwright MD [address] [place] [address] Referring Orthopedics 03/29/20 Associate Dean Of Students Relationship Specialty Start Date End Date Edenilson Nicholson DO [address] [place] [address] PCP - General Family Medicine 05/23/16 Ino Purdy MD [address] [place] [address] Home Care Provider Orthopedics 03/29/20 Fermín Cartwright MD [address] [place] [address] Referring Orthopedics 03/29/20 Associate Dean Of Students Relationship Specialty Start Date End Date Edenilson Nicholson DO [address] [place] [address] PCP - General Family Medicine 05/23/16 Ino Purdy MD [address] [place] [address] Home Care Provider Orthopedics 03/29/20 Fermín Cartwright MD [address] [place] [address] Referring Orthopedics 03/29/20 Associate Dean Of Students Relationship Specialty Start Date End Date Edenilson Nicholson DO [address] [place] [address] PCP - General Family Medicine 05/23/16 Ino Purdy MD [address] [place] [address] Home Care Provider Orthopedics 03/29/20 Fermín Cartwright MD [address] [place] [address] Referring Orthopedics 03/29/20 Associate Dean Of Students Relationship Specialty Start Date End Date Edenilson Nicholson DO [address] [place] [address] PCP - General Family Medicine 05/23/16 Ino Purdy MD [address] [place] [address] Home Care Provider Orthopedics 03/29/20 Fermín Cartwright MD [address] [place] [address] Referring Orthopedics 03/29/20 Associate Dean Of Students Relationship Specialty Start Date End Date Edenilson Nicholson DO [address] [place] [address] PCP - General Family Medicine 05/23/16 Ino Purdy MD [address] [place] [address] Home Care Provider Orthopedics 03/29/20 Fermín Cartwright MD [address] [place] [address] Referring Orthopedics 03/29/20 Associate Dean Of Students Relationship Specialty Start Date End Date Edenilson Nicholson DO [address] [place] [address] PCP - General Family Medicine 05/23/16 Ino Purdy MD [address] [place] [address] Home Care Provider Orthopedics 03/29/20 Fermín Cartwright MD [address] [place] [address] Referring Orthopedics 03/29/20 Associate Dean Of Students Relationship Specialty Start Date End Date Edenilson Nicholson DO [address] [place] [address] PCP - General Family Medicine 05/23/16 Ino Purdy MD [address] [facility] [place] [address] Home Care Provider Orthopedics 03/29/20 Fermín Cartwright MD [address] [place] [address] Referring Orthopedics 03/29/20 Associate Dean Of Students Relationship Specialty Start Date End Date Edenilson Nicholson DO [address] [place] [address] PCP - General Family Medicine 05/23/16 Ino Purdy MD [address] [facility] [place] [address] Home Care Provider Orthopedics 03/29/20 Fermín Cartwright MD [address] [place] [address] Referring Orthopedics 03/29/20 Associate Dean Of Students Relationship Specialty Start Date End Date Edenilson Nicholson DO [address] [place] [address] PCP - General Family Medicine 05/23/16 Ino Purdy MD [address] [place] [address] Home Care Provider Orthopedics 03/29/20 Fremín Cartwright MD [address] [place] [address] Referring Orthopedics 03/29/20 Associate Dean Of Students Relationship Specialty Start Date End Date Edenilson Nicholson DO [address] [place] [address] PCP - General Family Medicine 05/23/16 Ino Purdy MD [address] [facility] [place] [address] Home Care Provider Orthopedics 03/29/20 Fermín Cartwright MD [address] [place] [address] Referring Orthopedics 03/29/20 Associate Dean Of Students Relationship Specialty Start Date End Date Edenilson Nicholson DO [address] [place] [address] PCP - General Family Medicine 05/23/16 Ino Purdy MD [address] [facility] [place] [address] Home Care Provider Orthopedics 03/29/20 Fermín Cartwright MD [address] [place] [address] Referring Orthopedics 03/29/20 Associate Dean Of Students Relationship Specialty Start Date End Date Edenilson Nicholson DO [address] [place] [address] PCP - General Family Medicine 05/23/16 Ino Purdy MD [address] [place] [address] Home Care Provider Orthopedics 03/29/20 Fermín Cartwright MD [address] [place] [address] Referring Orthopedics 03/29/20 Associate Dean Of Students Relationship Specialty Start Date End Date Edenilson Nicholson DO [address] [place] [address] PCP - General Family Medicine 05/23/16 Ino Purdy MD [address] [place] [address] Home Care Provider Orthopedics 03/29/20 Fermín Cartwright MD [address] [place] [address] Referring Orthopedics 03/29/20 Magnolia Preciado, PT [address] [place] [address] Auto Refinisher Post Acute Care 03/29/20 12/10/22 Associate Dean Of Students Relationship Specialty Start Date End Date Edenilson Nicholson DO [address] [place] [address] PCP - General Family Medicine 05/23/16 Ino Purdy MD [address] [place] [address] Home Care Provider Orthopedics 03/29/20 Fermín Cartwright MD [address] [place] [address] Referring Orthopedics 03/29/20 Associate Dean Of Students Relationship Specialty Start Date End Date Edenilson Nicholson DO [address] [place] [address] PCP - General Family Medicine 05/23/16 Ino Purdy MD [address] [place] [address] Home Care Provider Orthopedics 03/29/20 Fermín Cartwright MD [address] [place] [address] Referring Orthopedics 03/29/20 Associate Dean Of Students Relationship Specialty Start Date End Date Edenilson Nicholson DO [address] [place] [address] PCP - General Family Medicine 05/23/16 Ino Purdy MD [address] [place] [address] Home Care Provider Orthopedics 03/29/20 Fermín Cartwright MD [address] [place] [address] Referring Orthopedics 03/29/20 Magnolia Preciado, PT [address] [place] [address] Auto Refinisher Post Acute Care 03/29/20 12/10/22 Associate Dean Of Students Relationship Specialty Start Date End Date Edenilson Nicholson DO [address] [place] [address] PCP - General Family Medicine 05/23/16 Ino Purdy MD [address] [place] [address] Home Care Provider Orthopedics 03/29/20 Fermín Cartwright MD [address] [place] [address] Referring Orthopedics 03/29/20 Magnolia Preciado, PT [address] [place], [place] [address] Auto Refinisher Post Acute Care 03/29/20 12/10/22 Associate Dean Of Students Relationship Specialty Start Date End Date Edenilson Nicholson DO [address] [place] [address] PCP - General Family Medicine 05/23/16 Ino Purdy MD [address] [place] [address] Home Care Provider Orthopedics 03/29/20 Fermín Cartwright MD [address] [place] [address] Referring Orthopedics 03/29/20 Magnolia Preciado, PT [address] [place] [address] Auto Refinisher Post Acute Care 03/29/20 12/10/22 Associate Dean Of Students Relationship Specialty Start Date End Date Edenilson Nicholson DO [address] [place] [address] PCP - General Family Medicine 05/23/16 Ino Purdy MD [address] [place] [address] Home Care Provider Orthopedics 03/29/20 Fermín Cartwright MD [address] [place] [address] Referring Orthopedics 03/29/20 Associate Dean Of Students Relationship Specialty Start Date End Date Edenilson Nicholson DO [address] [place] [address] PCP - General Family Medicine 05/23/16 Ino Purdy MD [address] [place] [address] Home Care Provider Orthopedics 03/29/20 Fermín Cartwright MD [address] [place] [address] Referring Orthopedics 03/29/20 Magnolia Preciado, PT [address] [place] [address] Auto Refinisher Post Acute Care 03/29/20 12/10/22 Associate Dean Of Students Relationship Specialty Start Date End Date Edenilson Nicholson DO [address] [place] [address] PCP - General Family Medicine 05/23/16 Ino Purdy MD [address] [place] [address] Home Care Provider Orthopedics 03/29/20 Fermín Cartwright MD [address] [place] [address] Referring Orthopedics 03/29/20 Associate Dean Of Students Relationship Specialty Start Date End Date Edenilson Nicholson DO [address] [place] [address] PCP - General Family Medicine 05/23/16 Ino Purdy MD [address] [place] [address] Home Care Provider Orthopedics 03/29/20 Fermín Cartwright MD [address] [place] [address] Referring Orthopedics 03/29/20 Associate Dean Of Students Relationship Specialty Start Date End Date Edenilson Nicholson DO [address] [place] [address] PCP - General Family Medicine 05/23/16 Ino Purdy MD [address] [place] [address] Home Care Provider Orthopedics 03/29/20 Fermín Cartwright MD [address] [place] [address] Referring Orthopedics 03/29/20 Kandi Park APRN.IS ARCHITECT [address] [facility] [place] [address] Hub Inventory Specialist Family Medicine 02/09/24 Angeline Ray ENGINE HEAD REPAIRER.IS ARCHITECT [address] [facility] [place] [address] Hub Inventory Specialist Family Medicine 02/09/24 Associate Dean Of Students Relationship Specialty Start Date End Date Edenilson Nicholson DO [address] [place] [address] PCP - General Family Medicine 05/23/16 Ino Purdy MD [address] [facility] [place] [address] Home Care Provider Orthopedics 03/29/20 Fermín Cartwright MD [address] [place] [address] Referring Orthopedics 03/29/20 Kandi Park ENGINE HEAD REPAIRER.IS ARCHITECT [address] [facility] [place] [address] Hub Inventory Specialist Family Medicine 02/09/24 Angeline Ray, ENGINE HEAD REPAIRER.IS ARCHITECT [address] [facility] [place] [address] Hub Inventory Specialist Family Medicine 02/09/24 Associate Dean Of Students Relationship Specialty Start Date End Date Edenilson Nicholson DO [address] [facility] [place] [address] PCP - General Family Medicine 05/23/16 Ino Purdy MD [address] [place] [address] Home Care Provider Orthopedics 03/29/20 Fermín Cartwright MD [address] [place] [address] Referring Orthopedics 03/29/20 Kandi Park ENGINE HEAD REPAIRER.IS ARCHITECT [address] [place] [address] Hub Inventory Specialist Family Medicine 02/09/24 Angeline Ray APRN.IS ARCHITECT [address] [place] [address] Hub Inventory Specialist Family Medicine 02/09/24 Associate Dean Of Students Relationship Specialty Start Date End Date Edenilson Nicholson DO [address] [place] [address] PCP - General Family Medicine 05/23/16 Ino Purdy MD [address] [place] [address] Home Care Provider Orthopedics 03/29/20 Fermín Cartwright MD [address] [place] [address] Referring Orthopedics 03/29/20 Kandi Park APRN.IS ARCHITECT [address] [place] [address] Hub Inventory Specialist Family Medicine 02/09/24 Angeline Ray APRN.IS ARCHITECT [address] [place] [address] Hub Inventory Specialist Family Medicine 02/09/24 Associate Dean Of Students Relationship Specialty Start Date End Date Edenilson Nicholson DO [address] [place] [address] PCP - General Family Medicine 05/23/16 Ino Purdy MD [address] [place] [address] Home Care Provider Orthopedics 03/29/20 Fermín Cartwright MD [address] [place] [address] Referring Orthopedics 03/29/20 Kandi Park APRN.IS ARCHITECT [address] [place] [address] Hub Inventory Specialist Family [facility] 02/09/24 Angeline Ray APRN.IS ARCHITECT [address] [place] [address] Hub Inventory Specialist [facility] 02/09/24 Associate Dean Of Students Relationship Specialty Start Date End Date Edenilson Nicholson DO [address] [place] [address] PCP - General Family Medicine 05/23/16 Ino Purdy MD [address] [place] [address] Home Care Provider Orthopedics 03/29/20 Fermín Cartwright MD [address] [place] [address] Referring Orthopedics 03/29/20 Kandi Park APRN.IS ARCHITECT [address] [place] [address] Hub Inventory Specialist Family Medicine 02/09/24 Angeline Ray APRN.IS ARCHITECT [address] [place] [address] [facility] Associate Dean Of Students Relationship Specialty Start Date End Date Edenilson Nicholson DO [address] [place] [address] PCP - General Family Medicine 05/23/16 Ino Purdy MD [address] [place] [address] Home Care Provider Orthopedics 03/29/20 Fermín Cartwright MD [address] [place] [address] Referring Orthopedics 03/29/20 Kandi Park, ENGINE HEAD REPAIRER.IS ARCHITECT [address] [place] [address] [facility] 02/[facility]/24 Angeline Ray, ENGINE HEAD REPAIRER.IS ARCHITECT [address] [place] [address] [facility] 02/09/24 Associate Dean Of Students Relationship Specialty Start Date End Date Edenilson Nicholson DO [address] [place] [address] PCP - General Family Medicine 05/23/16 Ino Purdy MD [address] [place] [address] Home Care Provider Orthopedics 03/29/20 Fermín Cartwright MD [address] [place] [address] Referring Orthopedics 03/29/20 Kandi Park, ENGINE HEAD REPAIRER.IS ARCHITECT [address] [facility] [place] [address] Hub Inventory Specialist Family [facility] 02/09/24 Angeline Ray APRN.IS ARCHITECT [address] [place] [address] Hub Inventory Specialist Family Medicine 02/09/24 Associate Dean Of Students Relationship Specialty Start Date End Date Edenilson Nicholson DO [address] [place] [address] PCP - General Family Medicine 05/23/16 Ino Purdy MD [address] [place] [address] Home Care Provider Orthopedics 03/29/20 Fermín Cartwright MD [address] [place] [address] Referring Orthopedics 03/29/20 Kandi Park, ENGINE HEAD REPAIRER.IS ARCHITECT [address] [place] [address] Hub Inventory Specialist [facility] 02/09/24 Angeline Ray, ENGINE HEAD REPAIRER.IS ARCHITECT [address] [place] [address] Hub Inventory Specialist Family [facility] 02/09/24 Associate Dean Of Students Relationship Specialty Start Date End Date Edenilson Nicholson DO [address] [place] [address] PCP - General Family Medicine 05/23/16 Ino Purdy MD [address] [place] [address] Home Care Provider Orthopedics 03/29/20 Fermín Cartwright MD [address] [place] [address] Referring Orthopedics 03/29/20 Kandi Park, ENGINE HEAD REPAIRER.IS ARCHITECT [address] [place] [address] Hub Inventory Specialist Family [facility] 02/09/24 Angeline Ray, ENGINE HEAD REPAIRER.IS ARCHITECT [address] [place] [address] Hub Inventory Specialist Family [facility] 02/09/24 Associate Dean Of Students Relationship Specialty Start Date End Date Edenilson Nicholson DO [address] [place] [address] PCP - General Family Medicine 05/23/16 Ino Purdy MD [address] [place] [address] Home Care Provider Orthopedics 03/29/20 Fermín Cartwright MD [address] [place] [address] Referring Orthopedics 03/29/20 Angeline Ray, ENGINE HEAD REPAIRER.IS ARCHITECT [address] [place] [address] [facility] 02/[facility] Associate Dean Of Students Relationship Specialty Start Date End Date Edenilson Nicholson DO [address] [place] [address] PCP - General Family Medicine 05/23/16 Ino Purdy MD [address] [place] [address] Home Care Provider Orthopedics 03/29/20 Fermín Cartwright MD [address] [place] [address] Referring Orthopedics 03/29/20 Angeline Ray APRN.IS ARCHITECT [address] [place] [address] Hub Inventory Specialist [facility] 02/09/24 Associate Dean Of Students Relationship Specialty Start Date End Date Edenilson Nicholson DO [address] [place] [address] PCP - General Family Medicine 05/23/16 Ino Purdy MD [address] [place] [address] Home Care Provider Orthopedics 03/29/20 Fermín Cartwright MD [address] [place] [address] Referring Orthopedics 03/29/20 Angeline Ray APRN.IS ARCHITECT [address] [place] [address] [facility] 02/09/24 Associate Dean Of Students Relationship Specialty Start Date End Date Edenilson Nicholson DO [address] [place] [address] PCP - General Family Medicine 05/23/16 Ino Purdy MD [address] [place] [address] Home Care Provider Orthopedics 03/29/20 Fermín Cartwright MD [address] [place] [address] Referring Orthopedics 03/29/20 Angeline Ray APRN.IS ARCHITECT [address] [place] [address] Hub Inventory Specialist Family Medicine 02/09/24 Associate Dean Of Students Relationship Specialty Start Date End Date Edenilson Nicholson DO [address] [place] [address] PCP - General Family Medicine 05/23/16 Ino Purdy MD [address] [place] [id number] Home Care Provider Orthopedics 03/29/20 Fermín Cartwright MD [address] [place] [address] Referring Orthopedics 03/29/20 Angeline Ray APRN.IS ARCHITECT [address] [place] [address] [facility] Associate Dean Of Students Relationship Specialty Start Date End Date Edenilson Nicholson DO [address] [place] [address] PCP - General Family Medicine 05/23/16 Ino Purdy MD [address] [place] [address] Home Care Provider Orthopedics 03/29/20 Fermín Cartwright MD [address] [place] [address] Referring Orthopedics 03/29/20 Angeline Ray APRN.IS ARCHITECT [address] [place] [address] [facility]24 Associate Dean Of Students Relationship Specialty Start Date End Date Edenilson Nicholson DO [address] [place] [address] PCP - General Family Medicine 05/23/16 Ino Purdy MD [address] [place] [address] Home Care Provider Orthopedics 03/29/20 Fermín Cartwright MD [address] [place] [address] Referring Orthopedics 03/29/20 Angeline Ray APRN.IS ARCHITECT [address] [place] [address] Hub Inventory Specialist Family Medicine 02/09/24 Associate Dean Of Students Relationship Specialty Start Date End Date Edenilson Nicholson DO [address] [place] [address] PCP - General Family Medicine 05/23/16 Ino Purdy MD [address] [facility] [place] [address] Home Care Provider Orthopedics 03/29/20 Fermín Cartwright MD [address] [place] [address] Referring Orthopedics 03/29/20 Angeline Ray ENGINE HEAD REPAIRER.IS ARCHITECT [address] [place] [address] Hub Inventory Specialist [facility] 02/09/24 Associate Dean Of Students Relationship Specialty Start Date End Date Edenilson Nicholson DO [address] [facility] [place] [address] PCP - General Family Medicine 05/23/16 Ino Purdy MD [address] [place] [address] Home Care Provider Orthopedics 03/29/20 Fermín Cartwright MD [address] [place] [address] Referring Orthopedics 03/29/20 Angeline Ray APRN.IS ARCHITECT [address] [place] [address] Hub Inventory Specialist Family [facility] 02/09/24 Associate Dean Of Students Relationship Specialty Start Date End Date Edenilson Nicholson DO [address] [place] [address] PCP - General Family Medicine 05/23/16 Ino Purdy MD [address] [place] [address] Home Care Provider Orthopedics 03/29/20 Fermín Cartwright MD [address] [place] [address] Referring Orthopedics 03/29/20 Angeline Ray APRN.IS ARCHITECT [address] [place] [address] Hub Inventory Specialist [facility] 02/09/24 Associate Dean Of Students Relationship Specialty Start Date End Date Edenilson Nicholson DO [address] [place] [address] PCP - General Family Medicine 05/23/16 Ino Purdy MD [address] [place] [address] Home Care Provider Orthopedics 03/29/20 Fermín Cartwright MD [address] [place] [address] Referring Orthopedics 03/29/20 Angeline Ray APRN.IS ARCHITECT [address] [place] [address] Hub Inventory Specialist Family Medicine 02/09/24 Team Status: Active Member Role Status Dates Dr. Edenilson Nicholson DO Primary Care Provider Active Team Status: Inactive Member Role Status Dates Dr. Edenilson Nicholson DO Primary Care Provider Active Start: June 26, 2024 End: June 26, 2024 Dr. Dina Olea MD Attending Provider Active Start: June 26, 2024 End: June 26, 2024 Dr. Dina Olea MD Referring Provider Active Start: June 26, 2024 End: June 26, 2024 Team Status: Active Member Role Status Dates Dr. Edenilson Nicholson DO Primary Care Provider Active Start: August 13, 2024 Dr. Julius Pete DO Referring Provider Activ e Start: August 13, 2024 Dr. Julius Pete DO Emergency Provider Activ e Start: August 13, 2024 Dr. Ramona Darden , Admit Provider Active Start : August 13, 2024 Dr. Ramona Darden DO Attending Provider Active S tart: August 13, 2024 Team Status: Inactive Member Role Status Dates Dr. Edenilson Nicholson DO Primary Care Provider Active Start: August 13, 2024 End: August 14, 2024 Dr. Julius Pete DO Referring Provider Activ e Start: August 13, 2024 End: August 14, 2024 Dr. Julius Pete DO Emergency Provider Activ e Start: August 13, 2024 End: August 14, 2024 Dr. Ramona Darden , Admit Provider Active Start : August 13, 2024 End: August 14, 2024 Dr. Ramona Darden , Other Provider Active Start : August 13, 2024 End: August 14, 2024 Pop Toro MD Other Provider Active Start: 2024 End: August 14, 2024 Dr. Maira Neely MD Other Provider Active Start: August 13, 2024 End: August 14, 2024 Yuliet Messer MD Other Provider Active Start : August 13, 2024 End: August 14, 2024 Dr. Elissa Pyle , DO Other Provider Active St art: August 13, 2024 End: August 14, 2024 Dr. Sharri Marroquin MD Other Provider Active Start: August 13, 2024 End: August 14, 2024 Dr. Anthony Kent MD Other Provider Active Sta rt: August 13, 2024 End: August 14, 2024 Dr. Leti Yarbrough MD Other Provider Active Start : August 13, 2024 End: August 14, 2024 Dr. Aric Martinez MD Other Provider Active Start: August 13, 2024 End: August 14, 2024 Dr. Isai Chanel MD Other Provider Active Start : August 13, 2024 End: August 14, 2024 Dr. Maury Garnica MD Other Provider Active Sta rt: August 13, 2024 End: August 14, 2024 Carol Porras MD Other Provider Active Start : August 13, 2024 End: August 14, 2024 Dr. Margaret Us MD Other Provider Active St art: August 13, 2024 End: August 14, 2024 Dr. Nathaly Alberto MD Other Provider Active Start : August 13, 2024 End: August 14, 2024 Dr. Navya Shane MD Other Provider Active Sta rt: August 13, 2024 End: August 14, 2024 Dr. Lucia Welsh MD Other Provider Active Start: August 13, 2024 End: August 14, 2024 Dr. Willy Goldsmith MD Other Provider Active St art: August 13, 2024 End: August 14, 2024 Dr. Allegra Mg MD Other Provider Active Star t: August 13, 2024 End: August 14, 2024 Dr. Abdifatah Chen MD Other Provider Active St art: August 13, 2024 End: August 14, 2024 Dr. Libby Darden MD Other Provider Active Start: August 13, 2024 End: August 14, 2024 Rahul Quiñonez MD Other Provider Active Start: August 13, 2024 End: August 14, 2024 Dr. Jerome Brasher DO Attending Provider Active Start: August 13, 2024 End: August 14, 2024 Team Status: Active Member Role Status Dates Dr. Edenilson Nicholson DO Primary Care Provider Active Start: August 13, 2024 Dr. Julius Pete DO Referring Provider Activ e Start: August 13, 2024 Dr. Julius Pete DO Emergency Provider Activ e Start: August 13, 2024 Dr. Ramona Darden , Admit Provider Active Start : August 13, 2024 Dr. Ramona Darden DO Other Provider Active Start : August 13, 2024 Pop Toro MD Other Provider Active Start: 2024 Dr. Maira Neely MD Other Provider Active Start: August 13, 2024 Yuliet Messer MD Other Provider Active Start : August 13, 2024 Dr. Elissa Pyle DO Other Provider Active St art: August 13, 2024 Dr. Sharri Marroquin MD Other Provider Active Start: August 13, 2024 Dr. Anthony Kent MD Other Provider Active Sta rt: August 13, 2024 Dr. Leti Yarbrough MD Other Provider Active Start : August 13, 2024 Dr. Aric Martinez MD Other Provider Active Start: August 13, 2024 Dr. Isai Chanel MD Other Provider Active Start : August 13, 2024 Dr. Maury Garnica MD Other Provider Active Sta rt: August 13, 2024 Carol Porras MD Other Provider Active Start : August 13, 2024 Dr. Margaret Us MD Other Provider Active St art: August 13, 2024 Dr. Nathaly Alberto MD Other Provider Active Start : August 13, 2024 Dr. Navya Shane MD Other Provider Active Sta rt: August 13, 2024 Dr. Lucia Welsh MD Other Provider Active Start: August 13, 2024 Dr. Willy Goldsmith MD Other Provider Active St art: August 13, 2024 Dr. Allegra Mg MD Other Provider Active Star t: August 13, 2024 Dr. Abdifatah Chen MD Other Provider Active St art: August 13, 2024 Dr. Libby Darden MD Other Provider Active Start: August 13, 2024 Rahul Quiñonez MD Other Provider Active Start: August 13, 2024 Darren DAVIS PA Attending Provider Active Sta rt: August 13, 2024 Team Status: Active Member Role Status Dates Dr. Edenilson Nicholson DO Primary Care Provider Active Start: August 14, 2024 Dr. Pablo Mak MD Attending Provider Active Start: August 14, 2024 Team Status: Active Member Role Status Dates Dr. Edenilson Nicholson , Primary Care Provider Active Start: August 14, 2024 Dr. Julius Pete DO Referring Provider Activ e Start: August 14, 2024 Dr. Julius Pete DO Emergency Provider Activ e Start: August 14, 2024 Dr. Ramona Darden , DO Admit Provider Active Start : August 14, 2024 Dr. Ramona Darden DO Other Provider Active Start : August 14, 2024 Pop Toro MD Other Provider Active Start: 2024 Dr. Maira Neely MD Other Provider Active Start: August 14, 2024 Yuliet Messer MD Other Provider Active Start : August 14, 2024 Dr. Elissa Pyle DO Other Provider Active St art: August 14, 2024 Dr. Sharri Marroquin MD Other Provider Active Start: August 14, 2024 Dr. Anthony Kent MD Other Provider Active Sta rt: August 14, 2024 Dr. Leti Yarbrough MD Other Provider Active Start : August 14, 2024 Dr. Aric Martinez MD Other Provider Active Start: August 14, 2024 Dr. Isai Chanel MD Other Provider Active Start : August 14, 2024 Dr. Maury Garnica MD Other Provider Active Sta rt: August 14, 2024 Carol Porras MD Other Provider Active Start : August 14, 2024 Dr. Margaret Us MD Other Provider Active St art: August 14, 2024 Dr. Nathaly Alberto MD Other Provider Active Start : August 14, 2024 Dr. Navya Shane MD Other Provider Active Sta rt: August 14, 2024 Dr. Lucia Welsh MD Other Provider Active Start: August 14, 2024 Dr. Willy Goldsmith MD Other Provider Active St art: August 14, 2024 Dr. Allegra Mg MD Other Provider Active Star t: August 14, 2024 Dr. Abdifatah Chen MD Other Provider Active St art: August 14, 2024 Dr. Libby Darden MD Other Provider Active Start: August 14, 2024 Rahul Quiñonez MD Other Provider Active Start: August 14, 2024 Dr. Jerome Brasher DO Attending Provider Active Start: August 14, 2024 Dr. Jerome Brasher DO Other Provider Active Star t: August 14, 2024 Associate Dean Of Students Relationship Specialty Start Date End Date Edenilson Nicholson DO [address] [place] [address] PCP - General Family Medicine 05/23/16 Ino Purdy MD [address] [place] [address] Home Care Provider Orthopedics 03/29/20 Fermín Cartwright MD [address] [place], [place] [id number] Referring Orthopedics 03/29/20 Angeline Ray APRN.IS ARCHITECT [address] [place] [id number] Hub Inventory Specialist Family Medicine 02/09/24 Maria Elena Amaya APRN.IS ARCHITECT [address] [place] [id number] Hub Inventory Specialist Family Medicine 08/17/24 Associate Dean Of Students Relationship Specialty Start Date End Date Edenilson Nicholson DO [address] [place] [address] PCP - General Family Medicine 05/23/16 Ino Purdy MD [address] [place] [address] Home Care Provider Orthopedics 03/29/20 Fermín Cartwright MD [address] [place], [place] [id number] Referring Orthopedics 03/29/20 Angeline Ray, ENGINE HEAD REPAIRER.IS ARCHITECT [address] [place], [place] [address] [facility] 02/09/24 Maria Elena Amayaan, ENGINE HEAD REPAIRER.IS ARCHITECT [address] [place] [address] [facility] 08/17/24 Team Status: Active Member Role/Relationship Status Dates Dr. Edenilson Nicholson DO Primary Care Provider Active Team Status: Inactive Member Role/Relationship Status Dates Dr. Edenilson Nicholson DO Primary Care Provider Active Start: June 26, 2024 End: June 26, 2024 Dr. Dina Olea MD Attending Provider Active Start: June 26, 2024 End: June 26, 2024 Dr. Dina Olea MD Referring Provider Active Start: June 26, 2024 End: June 26, 2024 Team Status: Inactive Member Role/Relationship Status Dates Dr. Edenilson Nicholson DO Primary Care Provider Active Start: August 13, 2024 End: August 14, 2024 Dr. Julius Pete DO Referring Provider Activ e Start: August 13, 2024 End: August 14, 2024 Dr. Julius Pete DO Emergency Provider Activ e Start: August 13, 2024 End: August 14, 2024 Dr. Ramona Dardne DO Admit Provider Active Start : August 13, 2024 End: August 14, 2024 Dr. Ramona Darden DO Other Provider Active Start : August 13, 2024 End: August 14, 2024 Pop Toro MD Other Provider Active Start: 2024 End: August 14, 2024 Dr. Maira Neely MD Other Provider Active Start: August 13, 2024 End: August 14, 2024 Yuliet Messer MD Other Provider Active Start : August 13, 2024 End: August 14, 2024 Dr. Elissa Pyle DO Other Provider Active St art: August 13, 2024 End: August 14, 2024 Dr. Sharri Marroquin MD Other Provider Active Start: August 13, 2024 End: August 14, 2024 Dr. Anthony Kent MD Other Provider Active Sta rt: August 13, 2024 End: August 14, 2024 Dr. Leti Yarbrough MD Other Provider Active Start : August 13, 2024 End: August 14, 2024 Dr. Aric Martinez MD Other Provider Active Start: August 13, 2024 End: August 14, 2024 Dr. Isai Chanel MD Other Provider Active Start : August 13, 2024 End: August 14, 2024 Dr. Maury Garnica MD Other Provider Active Sta rt: August 13, 2024 End: August 14, 2024 Carol Porras MD Other Provider Active Start : August 13, 2024 End: August 14, 2024 Dr. Margaret Us MD Other Provider Active St art: August 13, 2024 End: August 14, 2024 Dr. Nathaly Alberto MD Other Provider Active Start : August 13, 2024 End: August 14, 2024 Dr. Navya Shane MD Other Provider Active Sta rt: August 13, 2024 End: August 14, 2024 Dr. Lucia Welsh MD Other Provider Active Start: August 13, 2024 End: August 14, 2024 Dr. Willy Goldsmith MD Other Provider Active St art: August 13, 2024 End: August 14, 2024 Dr. Allegra Mg MD Other Provider Active Star t: August 13, 2024 End: August 14, 2024 Dr. Abdifatah Chen MD Other Provider Active St art: August 13, 2024 End: August 14, 2024 Dr. Libby Darden MD Other Provider Active Start: August 13, 2024 End: August 14, 2024 Rahul Quiñonez MD Other Provider Active Start: August 13, 2024 End: August 14, 2024 Dr. Jerome Brasher , Attending Provider Active Start: August 13, 2024 End: August 14, 2024 Team Status: Active Member Role/Relationship Status Dates Dr. Edenilson Nicholson DO Primary Care Provider Active Start: August 13, 2024 Dr. Julius Pete DO Emergency Provider Activ e Start: August 13, 2024 Dr. Ramona Darden DO Admit Provider Active Start : August 13, 2024 Dr. Ramona Darden DO Other Provider Active Start : August 13, 2024 Pop Toro MD Other Provider Active Start: 2024 Dr. Maira Neely MD Other Provider Active Start: August 13, 2024 Yuliet Messer MD Other Provider Active Start : August 13, 2024 Dr. Elissa Pyle DO Other Provider Active St art: August 13, 2024 Dr. Sharri Marroquin MD Other Provider Active Start: August 13, 2024 Dr. Anthony Kent MD Other Provider Active Sta rt: August 13, 2024 Dr. Leti Yarbrough MD Other Provider Active Start : August 13, 2024 Dr. Aric Martinez MD Other Provider Active Start: August 13, 2024 Dr. Isai Chanel MD Other Provider Active Start : August 13, 2024 Dr. Maury Garnica MD Other Provider Active Sta rt: August 13, 2024 Carol Porras MD Other Provider Active Start : August 13, 2024 Dr. Margaret Us MD Other Provider Active St art: August 13, 2024 Dr. Nathaly Alberto MD Other Provider Active Start : August 13, 2024 Dr. Navya Shane MD Other Provider Active Sta rt: August 13, 2024 Dr. Lucia Welsh MD Other Provider Active Start: August 13, 2024 Dr. Willy Goldsmith MD Other Provider Active St art: August 13, 2024 Dr. Allegra Mg MD Other Provider Active Star t: August 13, 2024 Dr. Abdifatah Chen MD Other Provider Active St art: August 13, 2024 Dr. Libby Darden MD Other Provider Active Start: August 13, 2024 Rahul Quiñonez MD Other Provider Active Start: August 13, 2024 SUSAN Moe Attending Provider Active Sta rt: August 13, 2024 Team Status: Active Member Role/Relationship Status Dates Dr. Edenilson Nicholson DO Primary Care Provider Active Start: August 14, 2024 Dr. Pablo Mak MD Attending Provider Active Start: August 14, 2024 Team Status: Active Member Role/Relationship Status Dates Dr. Edenilson Nicholson , DO Primary Care Provider Active Start: August 14, 2024 Dr. Julius Pete DO Emergency Provider Activ e Start: August 14, 2024 Dr. Ramona Darden , Admit Provider Active Start : August 14, 2024 Dr. Ramona Darden , Other Provider Active Start : August 14, 2024 Pop Toro MD Other Provider Active Start: 2024 Dr. Maira Neely MD Other Provider Active Start: August 14, 2024 Yuliet Messer MD Other Provider Active Start : August 14, 2024 Dr. Elissa Pyle DO Other Provider Active St art: August 14, 2024 Dr. Sharri Marroquin MD Other Provider Active Start: August 14, 2024 Dr. Anthony Kent MD Other Provider Active Sta rt: August 14, 2024 Dr. Leti Yarbrough MD Other Provider Active Start : August 14, 2024 Dr. Aric Martinez MD Other Provider Active Start: August 14, 2024 Dr. Isai Chanel MD Other Provider Active Start : August 14, 2024 Dr. Maury Garnica MD Other Provider Active Sta rt: August 14, 2024 Carol Porras MD Other Provider Active Start : August 14, 2024 Dr. Margaret Us MD Other Provider Active St art: August 14, 2024 Dr. Nathaly Alberto MD Other Provider Active Start : August 14, 2024 Dr. Navya Shane MD Other Provider Active Sta rt: August 14, 2024 Dr. Lucia Welsh MD Other Provider Active Start: August 14, 2024 Dr. Willy Goldsmith MD Other Provider Active St art: August 14, 2024 Dr. Allegra Mg MD Other Provider Active Star t: August 14, 2024 Dr. Abdifatah Chen MD Other Provider Active St art: August 14, 2024 Dr. Libby Darden MD Other Provider Active Start: August 14, 2024 Rahul Quiñonez MD Other Provider Active Start: August 14, 2024 Dr. Jerome Brasher DO Attending Provider Active Start: August 14, 2024 Dr. Jerome Brasher DO Other Provider Active Star t: August 14, 2024 Team Status: Active Member Role/Relationship Status Dates Dr. Jerome Brasher DO Attending Provider Active Start: August 24, 2024 Dr. Jerome Brasher DO Referring Provider Active Start: August 24, 2024 Dr. Edenilson Nicholson DO Primary Care Provider Active Start: August 24, 2024 Team Status: Inactive Member Role/Relationship Status Dates Dr. Edenilson Nicholson DO Primary Care Provider Active Start: September 14, 2024 End: September 14, 2024 Dr. Dina Olea MD Attending Provider Active Start: September 14, 2024 End: September 14, 2024 Dr. Dina Olea MD Referring Provider Active Start: September 14, 2024 End: September 14, 2024 Associate Dean Of Students Relationship Specialty Start Date End Date Edenilson Nicholson DO [address] [place], [place] [id number] PCP - General Family Medicine 05/23/16 Ino Purdy MD [address] [place] [address] Home Care Provider Orthopedics 03/29/20 Fermín Cartwright MD [address] [place] [address] Referring Orthopedics 03/29/20 Angeline Ray, ENGINE HEAD REPAIRER.IS ARCHITECT [address] [place], [place] [id number] Hub Inventory Specialist Family Medicine 02/09/24 Maria Elena Amaya, ENGINE HEAD REPAIRER.IS ARCHITECT [address] [place], [place] [address] [facility] 08/17/24 Associate Dean Of Students Relationship Specialty Start Date End Date Edenilson Nicholson DO [address] [place], [place] [id number] PCP - General Family Medicine 05/23/16 Ino Purdy MD [address] [place] [address] Home Care Provider Orthopedics 03/29/20 Fermín Cartwright MD [address] [place], [place] [id number] Referring Orthopedics 03/29/20 Angeline Ray APRN.IS ARCHITECT [address] [place] [address] Hub Inventory Specialist Family Medicine 02/09/24 Maria Elena Amaya APRN.IS ARCHITECT [address] [place] [address] Hub Inventory Specialist Family [facility] 08/17/24 Associate Dean Of Students Relationship Specialty Start Date End Date Edenilson Nicholson DO [address] [place] [address] PCP - General Family Medicine 05/23/16 Ino Purdy MD [address] [place] [address] Home Care Provider Orthopedics 03/29/20 Fermín Cartwright MD [address] [place] [address] Referring Orthopedics 03/29/20 Angeline Ray APRN.IS ARCHITECT [address] [place] [address] Hub Inventory Specialist Family Medicine 02/09/24 Maria Elena Amaya APRN.IS ARCHITECT [address] [place] [address] Hub Inventory Specialist Family [facility] 08/17/24 Team Status: Inactive Member Role/Relationship Status Dates Dr. Edenilson Nicholson DO Primary Care Provider Active Start: August 13, 2024 End: August 14, 2024 Dr. Julius Pete DO Referring Provider Activ e Start: August 13, 2024 End: August 14, 2024 Dr. Julius Pete DO Emergency Provider Activ e Start: August 13, 2024 End: August 14, 2024 Dr. Ramona Darden DO Admit Provider Active Start : August 13, 2024 End: August 14, 2024 Dr. Ramona Darden DO Other Provider Active Start : August 13, 2024 End: August 14, 2024 Pop Toro MD Other Provider Active Start: 2024 End: August 14, 2024 Dr. Maira Neely MD Other Provider Active Start: August 13, 2024 End: August 14, 2024 Yuliet Messer MD Other Provider Active Start : August 13, 2024 End: August 14, 2024 Dr. Elissa Pyle DO Other Provider Active St art: August 13, 2024 End: August 14, 2024 Dr. Sharri Marroquin MD Other Provider Active Start: August 13, 2024 End: August 14, 2024 Dr. Anthony Kent MD Other Provider Active Sta rt: August 13, 2024 End: August 14, 2024 Dr. Leti Yarbrough MD Other Provider Active Start : August 13, 2024 End: August 14, 2024 Dr. Aric Martinez MD Other Provider Active Start: August 13, 2024 End: August 14, 2024 Dr. Isai Chanel MD Other Provider Active Start : August 13, 2024 End: August 14, 2024 Dr. Maury Garnica MD Other Provider Active Sta rt: August 13, 2024 End: August 14, 2024 Carol Porras MD Other Provider Active Start : August 13, 2024 End: August 14, 2024 Dr. Margaret Us MD Other Provider Active St art: August 13, 2024 End: August 14, 2024 Dr. Nathaly Alberto MD Other Provider Active Start : August 13, 2024 End: August 14, 2024 Dr. Navya Shane MD Other Provider Active Sta rt: August 13, 2024 End: August 14, 2024 Dr. Lucia Welsh MD Other Provider Active Start: August 13, 2024 End: August 14, 2024 Dr. Willy Goldsmith MD Other Provider Active St art: August 13, 2024 End: August 14, 2024 Dr. Allegra Mg MD Other Provider Active Star t: August 13, 2024 End: August 14, 2024 Dr. Abdifatah Chen MD Other Provider Active St art: August 13, 2024 End: August 14, 2024 Dr. Libby Darden MD Other Provider Active Start: August 13, 2024 End: August 14, 2024 Rahul Quiñonez MD Other Provider Active Start: August 13, 2024 End: August 14, 2024 Dr. Jerome Brasher DO Attending Provider Active Start: August 13, 2024 End: August 14, 2024 Team Status: Active Member Role/Relationship Status Dates Dr. Edenilson Nicholson , Primary Care Provider Active Start: August 13, 2024 Dr. Julius Pete DO Emergency Provider Activ e Start: August 13, 2024 Dr. Ramona Darden DO Admit Provider Active Start : August 13, 2024 Dr. Ramona Darden DO Other Provider Active Start : August 13, 2024 Pop Toro MD Other Provider Active Start: 2024 Dr. Maira Neely MD Other Provider Active Start: August 13, 2024 Yuliet Messer MD Other Provider Active Start : August 13, 2024 Dr. Elissa Pyle DO Other Provider Active St art: August 13, 2024 Dr. Sharri Marroquin MD Other Provider Active Start: August 13, 2024 Dr. Anthony Kent MD Other Provider Active Sta rt: August 13, 2024 Dr. Leti Yarbrough MD Other Provider Active Start : August 13, 2024 Dr. Aric Martinez MD Other Provider Active Start: August 13, 2024 Dr. Isai Chanel MD Other Provider Active Start : August 13, 2024 Dr. Maury Garnica MD Other Provider Active Sta rt: August 13, 2024 Carol Porras MD Other Provider Active Start : August 13, 2024 Dr. Margaret Us MD Other Provider Active St art: August 13, 2024 Dr. Nathaly Alberto MD Other Provider Active Start : August 13, 2024 Dr. Navya Shane MD Other Provider Active Sta rt: August 13, 2024 Dr. Lucia Welsh MD Other Provider Active Start: August 13, 2024 Dr. Willy Goldsmith MD Other Provider Active St art: August 13, 2024 Dr. Allegra Mg MD Other Provider Active Star t: August 13, 2024 Dr. Abdifatah Chen MD Other Provider Active St art: August 13, 2024 Dr. Libby Darden MD Other Provider Active Start: August 13, 2024 Rahul Quiñonez MD Other Provider Active Start: August 13, 2024 SUSAN Moe Attending Provider Active Sta rt: August 13, 2024 Team Status: Active Member Role/Relationship Status Dates Dr. Edenilson Nicholson DO Primary Care Provider Active Start: August 14, 2024 Dr. Pablo Mak MD Attending Provider Active Start: August 14, 2024 Team Status: Active Member Role/Relationship Status Dates Dr. Edenilson Nicholson DO Primary Care Provider Active Start: August 14, 2024 Dr. Julius Pete DO Emergency Provider Activ e Start: August 14, 2024 Dr. Ramona Darden DO Admit Provider Active Start : August 14, 2024 Dr. Ramona Darden DO Other Provider Active Start : August 14, 2024 Pop Toro MD Other Provider Active Start: 2024 Dr. Maira Neely MD Other Provider Active Start: August 14, 2024 Yuliet Messer MD Other Provider Active Start : August 14, 2024 Dr. Elissa Pyle DO Other Provider Active St art: August 14, 2024 Dr. Sharri Marroquin MD Other Provider Active Start: August 14, 2024 Dr. Anthony Kent MD Other Provider Active Sta rt: August 14, 2024 Dr. Leti Yarbrough MD Other Provider Active Start : August 14, 2024 Dr. Aric Martinez MD Other Provider Active Start: August 14, 2024 Dr. Isai Chanel MD Other Provider Active Start : August 14, 2024 Dr. Maury Garnica MD Other Provider Active Sta rt: August 14, 2024 Carol Porras MD Other Provider Active Start : August 14, 2024 Dr. Margaret Us MD Other Provider Active St art: August 14, 2024 Dr. Nathaly Alberto MD Other Provider Active Start : August 14, 2024 Dr. Navya Shane MD Other Provider Active Sta rt: August 14, 2024 Dr. Lucia Welsh MD Other Provider Active Start: August 14, 2024 Dr. Willy Goldsmith MD Other Provider Active St art: August 14, 2024 Dr. Allegra Mg MD Other Provider Active Star t: August 14, 2024 Dr. Abdifatah Chen MD Other Provider Active St art: August 14, 2024 Dr. Libby Darden MD Other Provider Active Start: August 14, 2024 Rahul Quiñonez MD Other Provider Active Start: August 14, 2024 Dr. Jerome Brasher DO Attending Provider Active Start: August 14, 2024 Dr. Jerome Brasher DO Other Provider Active Star t: August 14, 2024 Team Status: Active Member Role/Relationship Status Dates Dr. Jerome Brasher DO Attending Provider Active Start: August 24, 2024 Dr. Jerome Brasher DO Referring Provider Active Start: August 24, 2024 Dr. Edenilson Nicholson DO Primary Care Provider Active Start: August 24, 2024 Team Status: Inactive Member Role/Relationship Status Dates Dr. Edenilson Nicholson DO Primary Care Provider Active Start: September 14, 2024 End: September 14, 2024 Dr. Dina Olea MD Attending Provider Active Start: September 14, 2024 End: September 14, 2024 Dr. Dina Olea MD Referring Provider Active Start: September 14, 2024 End: September 14, 2024 Team Status: Inactive Member Role/Relationship Status Dates Dr. Edenilson Nicholson DO Primary Care Provider Active Start: November 04, 2024 End: November 04, 2024 Dr. Kai Macedo MD Emergency Provider Active Sta rt: November 04, 2024 End: November 04, 2024 Associate [employer] Relationship Specialty Start Date End Date Edenilson Nicholson DO [address] [place] [address] PCP - General Family Medicine 05/23/16 Ino Purdy MD [address] [place] [address] Home Care Provider Orthopedics 03/29/20 Ferímn Cartwright MD [address] [place] [address] Referring Orthopedics 03/29/20 Angeline Ray APRN.IS ARCHITECT [facility] [place] [address] Hub Inventory Specialist Family [facility] 02/09/24 Maria Elena Amaya APRN.IS ARCHITECT [address] [place] [id number] [facility] Associate [employer] Relationship Specialty Start Date End Date Edenilson Nicholson DO [address] [place] [address] PCP - General Family Medicine 05/23/16 Ino Purdy MD [address] [place] [address] Home Care Provider Orthopedics 03/29/20 Fermín Cartwright MD [address] [place] [address] Referring Orthopedics 03/29/20 Angeline Ray APRN.IS ARCHITECT [address] [place] [address] Hub Inventory Specialist Family Medicine 02/09/24 Maria Elena Amaya APRN.IS ARCHITECT [address] [place], [place] [address] Hub Inventory Specialist Family Medicine 08/17/24 Associate [employer] Relationship Specialty Start Date End Date Edenilson Nicholson DO [address] [place], [place] [address] PCP - General Family Medicine 05/23/16 Ino Purdy MD [address] [place] [address] Home Care Provider Orthopedics 03/29/20 Fermín Cartwright MD [address] [place], [place] [id number] Referring Orthopedics 03/29/20 Angeline Ray APRN.IS ARCHITECT [address] [place], [place] [id number] Hub Inventory Specialist Family Medicine 02/09/24 Maria Elena Amaya APRN.IS ARCHITECT [address] [place], [place] [id number] Hub Inventory Specialist Family [facility] 08/17/24 Goals (unrecognized section and content) Goals may [...] section and content) DATE CREATED AUTHOR 01/25/2023 [facility] ([place]) DATE CREATED AUTHOR AUTHOR'S ORGANIZ ATION 05/09/2023 [facility] DATE CREATED AUTHOR AUTHOR'S ORGANIZ ATION 05/26/2023 [facility] DATE CREATED AUTHOR AUTHOR'S ORGANIZ ATION 05/18/2024 [facility] DATE CREATED AUTHOR AUTHOR'S ORGANIZ ATION 12/11/2024 [facility] DATE CREATED AUTHOR AUTHOR'S ORGANIZ ATION 01/01/2025 [facility] Inactive Administered Medications - up to 3 [...] BE BASED ON THE PRIMARY CLINICAL RECORDS. [employer] provides no warranty or guarantee of the accuracy or completeness of information in this document.
[2025-03-03 18:25] VITALS: BP 168/81; PULSE 66; RESP 16; TEMP 36.6; O2SAT 98
== END 2025-03-03 18:27 | disposition home or self-care (01) ==
PROVIDERS: Emergency Provider Surgery; PCP Student in an Organized Health Care Education/Training Program; Visit Provider Surgery
DX: S00.03XA Contusion of scalp, initial encounter (principal); L40.50 Arthropathic psoriasis, unspecified; E78.5 Hyperlipidemia, unspecified; S20.212A Contusion of left front wall of thorax, initial encounter; S20.02XA Contusion of left breast, initial encounter; W10.9XXA Fall (on) (from) unspecified stairs and steps, initial encounter; I10 Essential (primary) hypertension; Z79.899 Other long term (current) drug therapy; Z96.653 Presence of artificial knee joint, bilateral; Z90.710 Acquired absence of both cervix and uterus; M62.838 Other muscle spasm
CPT/HCPCS: 70450; 71101; 72125; 99282